=== PATIENT | male | born 1955 | race Caucasian/White ===

== ENCOUNTER 2023-07-23 18:32 | Emergency (ER) | payer MEDICARE, OTHER, SELFPAY ==
[2023-07-23 18:40] VITALS: BP 198/100; PULSE 73; RESP 18; TEMP 36.5; O2SAT 97; BMI 33.5
--- NOTE | 2023-07-23 18:48 | CT_ITS ---
[address] [address] Patient Name: JAE KHAN MRN: [id number] date: 1955 Sex: M Assigned Patient Location: ER Current Patient Location: [facility] Accession/Order Number: [id number] Exam Date: 07/23/2023 19:05 Report Date: 07/23/2023 20:03 At the request of: KESHA PIRES Procedure: CT abdomen pelvis wo con EXAMINATION: CT ABDOMEN AND PELVIS WITHOUT IV CONTRAST CLINICAL HISTORY: Flank pain TECHNIQUE: Non-IV contrast imaging of the abdomen and pelvis was performed using standard technique, scanning from just above the dome of the diaphragm to the symphysis pubis. Unenhanced imaging is limited for the evaluation of some intra-abdominal and pelvic pathology. All CT scans at this facility use dose modulation, iterative reconstruction, and/or weight based dosing when appropriate to reduce radiation dose to as low as reasonably achievable. Contrast: IV: None COMPARISON: None. RESULT: Abdomen / Pelvis: Liver: 3.5 cm right hepatic lobe simple cyst. The liver demonstrates homogeneous attenuation. Biliary: Cholelithiasis. Spleen: No splenomegaly. Pancreas: Unremarkable. Adrenals: Normal. Kidneys: No calculus, hydronephrosis or finding to suggest a cyst or mass in the unenhanced kidney. GI Tract: No bowel dilation. Normal appendix. There is diverticulosis. No changes of diverticulitis. Moderate colonic stool. Lymph Nodes: No lymphadenopathy. Mesentery/peritoneum: No ascites. Retroperitoneum: No mass. Vasculature: Atherosclerotic vascular disease without aneurysm. Pelvis: No mass or ascites. Mild prostatomegaly. Urinary bladder is unremarkable. Bones/Soft Tissues: No acute abnormality. Lower thorax: Unremarkable. CT/CT abdomen pelvis wo con IMPRESSION: No acute findings in the abdomen and pelvis. Moderate colonic stool. Electronically authenticated by: EDUIN NORMAN Date: 07/23/2023 20:03
--- NOTE | 2023-07-23 18:55 | ED_ITS ---
HPI - General Adult General Chief complaint: Back Pain/Injury Stated complaint: HEMATURIA Time Seen by Provider: 07/23/23 18:41 Mode of arrival: walk-in History of Present Illness HPI narrative: Patient is a 67-year-old male who presents to the emergency department with his with concern for hematuria that began today. Patient has had ongoing issues with low back pain radiating into the but oxygen down the back of the legs for several months. He is awaiting an MRI from his PCP office for this. states they were seen at an urgent care last week for intermittent urinary incontinence. He has had no fevers, chills, nausea, vomiting. He states he feels warm . He does not have any flank pain although he states he occasionally has abdominal pain. He has no history of kidney issues. He has not passed any clots in his urine. He is able to urinate without difficulty. No pain or burning with urination. Related Data Home Medications Medication Instructions Recorded Confirmed Vitamin B12 See Rx Instructions .Route .COMPLEX 07/23/23 07/23/23 bempedoic acid 180 mg tablet 180 mg PO QAM 07/23/23 07/23/23 (Nexletol) buspirone 30 mg tablet 15 mg PO BID 07/23/23 07/23/23 carvedilol 12.5 mg tablet 12.5 mg PO BID 07/23/23 07/23/23 duloxetine 30 mg capsule,delayed 60 mg PO QAM 07/23/23 07/23/23 release duloxetine 60 mg capsule,delayed 30 mg PO QPM 07/23/23 07/23/23 release empagliflozin 25 mg tablet 25 mg PO QAM 07/23/23 07/23/23 (Jardiance) insulin glargine U-300 conc 300 60 unit subcut QPM 07/23/23 07/23/23 unit/mL (3 mL) subcutaneous pen (Toujeo Max U-300 SoloStar) insulin lispro 200 unit/mL (3 mL) 1 sliding scale dose subcut TIDWM 07/23/23 07/23/23 subcutaneous pen (Humalog KwikPen U-200 Insulin) lorazepam 0.5 mg tablet 0.5 mg PO QPM 07/23/23 07/23/23 lorazepam 1 mg tablet 1 mg PO QAM 07/23/23 07/23/23 melatonin 3 mg tablet 6 mg PO QPM 07/23/23 07/23/23 sacubitril 24 mg-valsartan 26 mg 1 tab PO BID 07/23/23 07/23/23 tablet (Entresto) semaglutide 2 mg/dose (8 mg/3 mL) 2 mg subcut QWEEK 07/23/23 07/23/23 subcutaneous pen injector (Ozempic) Allergies Allergy/AdvReac Type Severity Reaction Status Date / Time No Known Drug Allergies Allergy Verified 07/23/23 18:47 Review of Systems ROS Constitutional Denies: fever or chills Ears, nose, mouth, and throat Denies: throat pain Cardiovascular Denies: chest pain Respiratory Denies: shortness of breath Gastrointestinal Reports: abdominal pain; Denies: nausea, vomiting or diarrhea Genitourinary Reports: blood in urine; Denies: painful urination Musculoskeletal Reports: back pain and extremity pain; Denies: neck pain Integumentary/Breast Denies: rash Neurological Denies: headache Exam Narrative Exam Narrative: Gen.: Awake, alert, in no distress Head: Normocephalic, atraumatic ENT: Moist mucous membranes Respiratory: No respiratory distress, lungs clear bilaterally Cardio: Regular rate and rhythm Gastrointestinal: Abdomen is soft, nondistended and nontender to palpation Back: No CVA tenderness, no spinal point tenderness or obvious deformity Extremities: Moves extremities equally, normal dorsiflexion and plantarflexion with no decrease in sensation to the medial thighs, ambulatory. Psych: Normal mood and affect Neuro: No focal neuro deficit Skin: Warm, dry, intact Constitutional Vital Signs, click to edit/add: Last Vital Signs Temp 97.7 F 07/23/23 18:40 Pulse 73 07/23/23 18:40 Resp 18 07/23/23 18:40 BP 198/100 H 07/23/23 18:40 Pulse Ox 97 07/23/23 18:40 O2 Del Method Room Air 07/23/23 19:45 Course Vital Signs Vital signs: Vital Signs Temperature 97.7 F 07/23/23 18:40 Pulse Rate 73 07/23/23 18:40 Respiratory Rate 18 07/23/23 18:40 Blood Pressure 198/100 H 07/23/23 18:40 Pulse Oximetry 97 07/23/23 18:40 Oxygen Delivery Method Room Air 07/23/23 18:40 Temperature 97.7 F 07/23/23 18:40 Pulse Rate 73 07/23/23 18:40 Respiratory Rate 18 07/23/23 18:40 Blood Pressure 198/100 H 07/23/23 18:40 Pulse Oximetry 97 07/23/23 18:40 Oxygen Delivery Method Room Air 07/23/23 19:45 Medical Decision Making MDM Narrative Medical decision making narrative: Patient was ordered to have an IV placed with pain medication and muscle relaxants for his ongoing and worsening low back pain consistent with musculoskeletal pain/sciatica. He refused the IV, he refused the pain medications that were ordered. He then requested Tylenol. Lab studies and urine specimen showed no evidence of acute renal issue, no hematuria noted on urine screen and no evidence of urinary tract infection. CT of the abdomen and pelvis shows no evidence of kidney stone or renal pathology. Patient is noted to have moderate stool on the CT. He will be discharged home to follow-up with urology, PCP, return to the Emergency Room if symptoms change or worsen. Patient reevaluated by attending physician prior to discharge, all questions answered. Medical Records Medical records reviewed: Yes I reviewed the patient's medical records Lab Data Lab results reviewed: Yes I reviewed the patient's lab results Labs: Lab Results 07/23/23 07/23/23 Range/Units 18:47 19:50 WBC 8.4 (4.0-11.0) 10^3/uL RBC 4.67 L (4.70-6.10) 10^6/uL Hgb 13.9 L (14.0-18.0) g/dL Hct 42.9 (42.0-54.0) % MCV 91.9 (80.0-94.0) fL MCH 29.8 (25.9-34.0) pg MCHC 32.4 (29.9-35.2) g/dL RDW 15.2 H (11.0-15.0) % Plt Count 268 (150-450) 10^3/uL MPV 9.4 L (9.5-13.5) fL Neut % (Auto) 56.9 (43.0-75.0) % Lymph % (Auto) 30.4 (20.5-60.0) % [place] % (Auto) 9.2 (1.7-12.0) % Eos % (Auto) 2.6 (0.9-7.0) % Baso % (Auto) 0.5 (0.2-2.0) % Neut # (Auto) 4.8 (1.4-6.5) 10^3/uL Lymph # (Auto) 2.6 (1.2-3.8) 10^3/uL [place]ois # (Auto) 0.8 (0.3-0.8) 10^3/uL Eos # (Auto) 0.2 (0.0-0.7) 10^3/uL Baso # (Auto) 0.0 (0.0-0.1) 10^3/uL Abs Immat Gran (auto) 0.03 (0.00-0.03) 10^3/uL Imm/Tot Granulo (auto) 0.4 (0.0-0.5) % Sodium 138 (136-145) mmol/L Potassium 4.1 (3.5-5.1) mmol/L Chloride 102 (98-107) mmol/L Carbon Dioxide 25.1 (21.0-32.0) mmol/L Anion Gap 15.0 BUN 29.0 H (7.0-18.0) mg/dL Creatinine 0.98 (0.70-1.30) mg/dL Est GFR ( Amer) >60 (>=60) Est GFR (Non-Af Amer) >60 (>=60) BUN/Creatinine Ratio 29.6 Glucose 142 H (74-106) mg/dL Calcium 8.9 (8.5-10.1) mg/dL Total Bilirubin 0.3 (0.2-1.0) mg/dL AST 10 L (15-37) U/L ALT 41 (16-63) U/L Alkaline Phosphatase 45 L (46-116) U/L Total Protein 7.6 (6.4-8.2) g/dL Albumin 3.9 (3.4-5.0) g/dL Globulin 3.7 g/dL Albumin/Globulin Ratio 1.1 Urine Color Lt. yellow (YELLOW) Urine Clarity Clear (CLEAR) Urine pH 6.0 (5.0-9.0) Ur Specific [place] 1.020 (1.005-1.025) Urine Protein Negative (NEG/TRACE) mg/dL Urine Glucose (UA) >=1000 A (NEGATIVE) mg/dL Urine Ketones Negative (NEGATIVE) mg/dL Urine Occult Blood Negative (NEGATIVE) Urine Nitrite Negative (NEGATIVE) Urine Bilirubin Negative (NEGATIVE) Urine Urobilinogen 0.2 (0.2-1.0) EU/dL Ur Leukocyte Esterase Negative (NEGATIVE) Imaging Data CT scan - abdomen: Attestation: I have reviewed the pertinent imaging results. Radiologist's impression: Procedure: CT abdomen pelvis wo con EXAMINATION: CT ABDOMEN AND PELVIS WITHOUT IV CONTRAST CLINICAL HISTORY: Flank pain TECHNIQUE: Non-IV contrast imaging of the abdomen and pelvis was performed using standard technique, scanning from just above the dome of the diaphragm to the symphysis pubis. Unenhanced imaging is limited for the evaluation of some intra-abdominal and pelvic pathology. All CT scans at this facility use dose modulation, iterative reconstruction, and/or weight based dosing when appropriate to reduce radiation dose to as low as reasonably achievable. Contrast: IV: None COMPARISON: None. RESULT: Abdomen / Pelvis: Liver: 3.5 cm right hepatic lobe simple cyst. The liver demonstrates homogeneous attenuation. Biliary: Cholelithiasis. Spleen: No splenomegaly. Pancreas: Unremarkable. Adrenals: Normal. Kidneys: No calculus, hydronephrosis or finding to suggest a cyst or mass in the unenhanced kidney. GI Tract: No bowel dilation. Normal appendix. There is diverticulosis. No changes of diverticulitis. Moderate colonic stool. Lymph Nodes: No lymphadenopathy. Mesentery/peritoneum: No ascites. Retroperitoneum: No mass. Vasculature: Atherosclerotic vascular disease without aneurysm. Pelvis: No mass or ascites. Mild prostatomegaly. Urinary bladder is unremarkable. Bones/Soft Tissues: No acute abnormality. Lower thorax: Unremarkable. IMPRESSION: No acute findings in the abdomen and pelvis. Moderate colonic stool. Electronically authenticated by: EDUIN NORMAN Date: 07/23/2023 20:03 Discharge Plan Discharge Chief Complaint: Back Pain/Injury Clinical Impression: Hematuria, Musculoskeletal back pain Time of Disposition Decision: 20:31 Condition: Good Prescriptions / Home Meds: No Action duloxetine 30 mg capsule,delayed release(DR/EC) 60 mg PO QAM duloxetine 60 mg capsule,delayed release(DR/EC) 30 mg PO QPM buspirone 30 mg tablet 15 mg PO BID lorazepam 1 mg tablet 1 mg PO QAM lorazepam 0.5 mg tablet 0.5 mg PO QPM Toujeo Max U-300 SoloStar 300 unit/mL (3 mL) insulin pen 60 unit SUBCUT QPM Humalog KwikPen Insulin 200 unit/mL (3 mL) insulin pen 1 sliding scale dose SUBCUT TIDWM Ozempic 2 mg/dose (8 mg/3 mL) pen injector 2 mg subcut QWEEK Jardiance 25 mg tablet 25 mg PO QAM carvedilol 12.5 mg tablet 12.5 mg PO BID Nexletol 180 mg tablet 180 mg PO QAM Entresto 24-26 mg tablet 1 tab PO BID melatonin 3 mg tablet 6 mg PO QPM Vitamin B12 100 mcg See Rx Instructions .ROUTE .COMPLEX Rx Instructions: 100 mcg in am; Instructions: Hematuria (ED), Back Pain (ED) Stand Alone Forms: Portal Instructions Referrals: Adalberto Alcantara MD [Physician] - 1 week JAE PANIAGUA [Primary Care Provider] - 1 week
[2023-07-23 19:41] LABS: Bilirubin Urine NEGATIVE (NEGATIVE); Blood Urine NEGATIVE (NEGATIVE); Clarity Urine CLEAR (CLEAR); Color Urine LT. YELLOW (YELLOW); Glucose Urine UA >=1000 mg/dL (NEGATIVE); Ketones Urine NEGATIVE (NEGATIVE); Leukocyte Esterase Urine NEGATIVE (NEGATIVE); Nitrite Urine NEGATIVE (NEGATIVE); Protein Urine NEGATIVE (NEG/TRACE); Urobilinogen Urine 0.2 EU/dL (0.2-1.0)
[2023-07-23 19:48] LABS: Urine Microscopic Indicated NO
[2023-07-23 20:00] LABS: Basophils Percent Auto 0.5 % (0.2-2.0); Eosinophils Absolute Auto 0.2 10^3/uL (0.0-0.7); Eosinophils Percent Auto 2.6 % (0.9-7.0); Hematocrit 42.9 % (42.0-54.0); Hemoglobin 13.9 g/dL (14.0-18.0); Immature Granulocytes Abs Auto 0.03 10^3/uL (0.00-0.03); Immature Granulocytes Pct Auto 0.4 % (0.0-0.5); Lymphocytes Absolute Auto 2.6 10^3/uL (1.2-3.8); Lymphocytes Percent Auto 30.4 % (20.5-60.0); Mean Corpuscular HGB Conc 32.4 g/dL (29.9-35.2); Mean Corpuscular Hemoglobin 29.8 pg (25.9-34.0); Mean Corpuscular Volume 91.9 fL (80.0-94.0); Mean Platelet Volume 9.4 fL (9.5-13.5); Monocytes Absolute Auto 0.8 10^3/uL (0.3-0.8); Monocytes Percent Auto 9.2 % (1.7-12.0); Neutrophils Absolute Auto 4.8 10^3/uL (1.4-6.5); Neutrophils Percent Auto 56.9 % (43.0-75.0); Platelet Count 268 10^3/uL (150-450); Red Blood Count 4.67 10^6/uL (4.70-6.10); Red Cell Distribution Width 15.2 % (11.0-15.0); White Blood Count 8.4 10^3/uL (4.0-11.0)
[2023-07-23 20:24] LABS: Alanine Aminotransferase 41 U/L (16-63); Albumin Globulin Ratio 1.1; Albumin Level 3.9 g/dL (3.4-5.0); Alkaline Phosphatase 45 U/L (46-116); Aspartate Amino Transferase 10 U/L (15-37); BUN Creatinine Ratio 29.6; Bilirubin Total 0.3 mg/dL (0.2-1.0); Calcium 8.9 mg/dL (8.5-10.1); Carbon Dioxide 25.1 mmol/L (21.0-32.0); Chloride 102 mmol/L (98-107); Estimated GFR (African America >60 (>=60); Estimated GFR (Non-African Ame >60 (>=60); Globulin 3.7 g/dL; Glucose 142 mg/dL (74-106); Potassium 4.1 mmol/L (3.5-5.1); Sodium 138 mmol/L (136-145); Total Protein 7.6 g/dL (6.4-8.2)
[2023-07-23] MEDS: ACETAMINOPHEN 325 MG TABLET 975 MG PO (20:25)
== END 2023-07-23 20:53 | disposition home or self-care (01) ==
PROVIDERS: Physician Assistant; Emergency Provider Emergency Medicine; PCP Internal Medicine
DX: R31.9 Hematuria, unspecified (principal); M54.9 Dorsalgia, unspecified; Z79.899 Other long term (current) drug therapy; Z79.4 Long term (current) use of insulin
CPT/HCPCS: 36415; 74176; 80053; 81003; 85025; 99285

== ENCOUNTER 2024-06-25 17:54 | Emergency (ER) | payer MEDICARE, SELFPAY ==
[2024-06-25 18:00] VITALS: BP 176/97; PULSE 82; TEMP 36.9; O2SAT 97; BMI 32.8
[2024-06-25 18:13] VITALS: O2SAT 97
--- NOTE | 2024-06-25 18:14 | ECG_ITS ---
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
[2024-06-25 18:26] LABS: Basophils Absolute Auto 0.1 10^3/uL (0.0-0.1); Basophils Percent Auto 0.5 % (0.2-2.0); Eosinophils Absolute Auto 0.2 10^3/uL (0.0-0.7); Eosinophils Percent Auto 1.8 % (0.9-7.0); Hematocrit 43.5 % (42.0-54.0); Hemoglobin 14.8 g/dL (14.0-18.0); Immature Granulocytes Abs Auto 0.02 10^3/uL (0.00-0.03); Immature Granulocytes Pct Auto 0.2 % (0.0-0.5); Lymphocytes Percent Auto 19.7 % (20.5-60.0); Mean Corpuscular Hemoglobin 31.2 pg (25.9-34.0); Mean Corpuscular Volume 91.6 fL (80.0-94.0); Mean Platelet Volume 8.8 fL (9.5-13.5); Monocytes Absolute Auto 0.8 10^3/uL (0.3-0.8); Monocytes Percent Auto 7.4 % (1.7-12.0); Neutrophils Absolute Auto 7.3 10^3/uL (1.4-6.5); Neutrophils Percent Auto 70.4 % (43.0-75.0); Platelet Count 274 10^3/uL (150-450); Red Blood Count 4.75 10^6/uL (4.70-6.10); White Blood Count 10.3 10^3/uL (4.0-11.0)
--- NOTE | 2024-06-25 18:32 | ED_ITS ---
HPI - Abdominal Pain General Chief Complaint: Extremity Problem, Nontraumatic Stated Complaint: Confusion, Lower Extremity Pain Time Seen by Provider: 06/25/24 18:01 Source: patient and family Mode of arrival: walk-in Limitations: no limitations History of Present Illness HPI narrative: Patient presents to ED with multiple medical problems and an extensive history. Patient has an extensive psychiatric history especially dealing with depression and anxiety. He has been on Ativan for many years and they are beginning the weaning process of Ativan. He has been on 1 mg in the night and 1 mg in the morning and he now is cutting down to half a milligram in the night and half milligram in the morning. Today is the first day that they cut his dose. They also added in BuSpar 5 mg a.m. and 5 mg p.m. He has been on BuSpar in the past but this is a new medication form again at this time. He also complained of abdominal pain and has a history of gallbladder issues but they apparently told him he can get his gallbladder out because he is on Plavix and needs to remain on Plavix for a year because he has had 4 cardiac stents. Patient also complained of bilateral lower extremity swelling and numbness. He has a extensive history of back issues and had an MRI 2 weeks ago that was nonacute. The MRI was set up by his family doctor and did not show any acute abnormalities. Most the information was obtained from the who was providing the medical history and current problems to me. Patient states he is not suicidal not homicidal. The patient also states he does not currently have abdominal pain or leg weakness or numbness. The states the symptoms have been on and off but his anxiety definitely seems worse today. Related Data Home Medications ?Medication ?Instructions ?Recorded ?Confirmed Vitamin B12 See Rx Instructions .Route .COMPLEX 07/23/23 06/25/24 buspirone 30 mg tablet 5 mg PO BID 07/23/23 06/25/24 carvedilol 12.5 mg tablet 12.5 mg PO BID 07/23/23 06/25/24 duloxetine 30 mg capsule,delayed 90 mg PO QAM 07/23/23 06/25/24 release insulin glargine U-300 conc 300 60 unit subcut QPM 07/23/23 06/25/24 unit/mL (3 mL) subcutaneous pen (Toujeo Max U-300 SoloStar) insulin lispro 200 unit/mL (3 mL) 1 sliding scale dose subcut TIDWM 07/23/23 06/25/24 subcutaneous pen (Humalog KwikPen U-200 Insulin) lorazepam 0.5 mg tablet 0.5 mg PO QPM 07/23/23 06/25/24 lorazepam 1 mg tablet 1 mg PO QAM 07/23/23 06/25/24 melatonin 3 mg tablet 6 mg PO QPM 07/23/23 06/25/24 semaglutide 2 mg/dose (8 mg/3 mL) 2 mg subcut QWEEK 07/23/23 06/25/24 subcutaneous pen injector (Ozempic) atorvastatin 80 mg tablet 80 mg PO DAILY 06/25/24 06/25/24 clopidogrel 75 mg tablet 75 mg PO DAILY 06/25/24 06/25/24 empagliflozin 25 mg tablet 25 mg PO DAILY 06/25/24 06/25/24 (Jardiance) losartan 25 mg tablet 25 mg PO DAILY 06/25/24 06/25/24 spironolactone 25 mg tablet 25 mg PO DAILY 06/25/24 06/25/24 trazodone 100 mg tablet 50 mg PO BEDTIME PRN sleep 06/25/24 06/25/24 Allergies Allergy/AdvReac Type Severity Reaction Status Date / Time No Known Drug Allergies Allergy Verified 07/23/23 18:47 Review of Systems ROS Status of ROS 10 or more systems reviewed and unremark able except as noted in history and below PFSH PFSH Social History Little interest or pleasure in doing things: not at all Feeling down, depressed, or hopeless: not at all Exam Narrative Exam Narrative: Time Seen: [] Vital Signs: [Per nurse's notes.] General: [Alert] Skin: [Warm, dry, no rash.] Head: [Normocephalic, atraumatic.] Neck: [Supple, trachea midline.] Eye: [Pupils are equal, round and reactive to light, extraocular movements are intact, normal conjunctiva.] Ears, nose, mouth and throat: oral mucosa moist. Cardiovascular: [Regular rate and rhythm, no murmur.] Respiratory: [Lungs are clear to auscultation, respirations are non-labored, breath sounds are equal.] Chest wall: [No tenderness, no deformity.] Gastrointestinal: [Soft, nontender, non distended, normal bowel sounds.] MSK: 5 out of 5 muscle strength x 4 extremities no calf pain. No paraspinal pain in the lumbar spine. Normal distal pulses and sensation. Normal distal strength. Mild bilateral trace edema in the lower extremities Lymphatics: [No lymphadenopathy.] Psychiatric: [Cooperative, anxious, slightly agitated Neurological: [Alert and oriented to person, place, time, and situation, no focal neurological deficit observed.] Constitutional Vital Signs, click to edit/add: Last Vital Signs Temp 98.4 F 06/25/24 18:00 Pulse 82 06/25/24 18:00 Resp 18 06/25/24 18:00 BP 176/97 H 06/25/24 18:00 Pulse Ox 97 06/25/24 18:13 O2 Del Method Room Air 06/25/24 18:13 Course Vital Signs Vital signs: Vital Signs Temperature 98.4 F 06/25/24 18:00 Pulse Rate 82 06/25/24 18:00 Respiratory Rate 18 06/25/24 18:00 Blood Pressure 176/97 H 06/25/24 18:00 Pulse Oximetry 97 06/25/24 18:00 Oxygen Delivery Method Room Air 06/25/24 18:00 Temperature 98.4 F 06/25/24 18:00 Pulse Rate 82 06/25/24 18:00 Respiratory Rate 18 06/25/24 18:00 Blood Pressure 176/97 H 06/25/24 18:00 Pulse Oximetry 97 06/25/24 18:13 Oxygen Delivery Method Room Air 06/25/24 18:13 MDM - Abdominal Pain Differential Diagnosis Differential diagnosis: Likely abdominal pain, constipation, gastroenteritis, small bowel obstruction and other (Cholelithiasis cholecystitis, anxiety, medication withdraw) Medical Records Attestation: I reviewed the patient's medical records. Lab Data Attestation: I reviewed the patient's lab results. Labs: Lab Results 06/25/24 Range/Units 18:00 WBC 10.3 (4.0-11.0) 10^3/uL RBC 4.75 (4.70-6.10) 10^6/uL Hgb 14.8 (14.0-18.0) g/dL Hct 43.5 (42.0-54.0) % MCV 91.6 (80.0-94.0) fL MCH 31.2 (25.9-34.0) pg MCHC 34.0 (29.9-35.2) g/dL RDW 15.0 (11.0-15.0) % Plt Count 274 (150-450) 10^3/uL MPV 8.8 L (9.5-13.5) fL Neut % (Auto) 70.4 (43.0-75.0) % Lymph % (Auto) 19.7 L (20.5-60.0) % [place] % (Auto) 7.4 (1.7-12.0) % Eos % (Auto) 1.8 (0.9-7.0) % Baso % (Auto) 0.5 (0.2-2.0) % Neut # (Auto) 7.3 H (1.4-6.5) 10^3/uL Lymph # (Auto) 2.0 (1.2-3.8) 10^3/uL [place] # (Auto) 0.8 (0.3-0.8) 10^3/uL Eos # (Auto) 0.2 (0.0-0.7) 10^3/uL Baso # (Auto) 0.1 (0.0-0.1) 10^3/uL Abs Immat Gran (auto) 0.02 (0.00-0.03) 10^3/uL Imm/Tot Granulo (auto) 0.2 (0.0-0.5) % ECG Data Attestation: I personally reviewed and interpreted this ECG as follows: Interpretation: EKG INTERPRETATION Time: [] 1821 Rate: [] 74 Rhythm: _ [] Normal sinus rhythm ST segments: _ [] No acute ST elevation or depression T waves: _ [] Ectopy: _ [] P wave/[place] interval: _ [] QRS interval: _ [] QT interval: _ [] Comparison: _ [] Comparison EKG date: [] Performed by: [self] right bundle branch block Discharge Plan Discharge Chief Complaint: Extremity Problem, Nontraumatic Prescriptions / Home Meds: No Action duloxetine 30 mg capsule,delayed release(DR/EC) 90 mg PO QAM buspirone 30 mg tablet 5 mg PO BID lorazepam 1 mg tablet 1 mg PO QAM lorazepam 0.5 mg tablet 0.5 mg PO QPM insulin glargine U-300 conc [Toujeo Max U-300 SoloStar] 300 unit/mL (3 mL) insulin pen 60 unit SUBCUT QPM Humalog KwikPen Insulin 200 unit/mL (3 mL) insulin pen 1 sliding scale dose SUBCUT TIDWM Ozempic 2 mg/dose (8 mg/3 mL) pen injector 2 mg subcut QWEEK carvedilol 12.5 mg tablet 12.5 mg PO BID melatonin 3 mg tablet 6 mg PO QPM Vitamin B12 100 mcg See Rx Instructions .ROUTE .COMPLEX Rx Instructions: 100 mcg in am; atorvastatin 80 mg tablet 80 mg PO DAILY clopidogrel 75 mg tablet 75 mg PO DAILY losartan 25 mg tablet 25 mg PO DAILY spironolactone 25 mg tablet 25 mg PO DAILY trazodone 100 mg tablet 50 mg PO BEDTIME PRN (Reason: sleep) Jardiance 25 mg tablet 25 mg PO DAILY Print Language: Indonesian Referrals: Leeann Marshall NP [Primary Care Provider] - 1 week
--- NOTE | 2024-06-25 18:35 | CT_ITS ---
The [address] [address] Patient Name: JAE KHAN MRN: [id number] date: 1955 Sex: M Assigned Patient Location: ER Current Patient Location: .[facility] Accession/Order Number: [id number] Exam Date: 06/25/2024 18:32 Report Date: 06/25/2024 19:54 At the request of: STACY HDZ Procedure: CT abdomen pelvis wo con CT ABDOMEN PELVIS WITHOUT CONTRAST HISTORY: Abdominal pain. COMPARISON: CT abdomen and pelvis without 07/23/2023. TECHNIQUE: Thin section axial CT images were obtained from the lung bases to the pubis symphysis. This CT exam was performed using one or more of the following dose reduction techniques: Automated exposure control, adjustment of the mA and/or kV according to patient size, or use of iterative reconstruction technique. Thin section coronal and sagittal images were reconstructed from the axial data set. All images were reviewed and interpreted. CONTRAST: None. FINDINGS: Assessment of solid organs is limited without the benefit of IV contrast. LUNG BASES: The lung bases are clear. GE JUNCTION AND STOMACH: Small sliding-type hiatal hernia. LIVER: Stable simple left hepatic lobe cyst measures 3.3 x 2.7 cm with mean attenuation values 6 Hounsfield units consistent with simple cysts. Liver otherwise negative. GALLBLADDER AND BILIARY TREE: Redemonstration of multiple small gallstones within gallbladder lumen. No gallbladder distention or CT evidence of acute cholecystitis. No intrahepatic or extrahepatic bile duct distention. SPLEEN: Negative. PANCREAS: Negative. ADRENALS: Negative. KIDNEYS AND URETERS: Stable chronic bilateral perinephric scarring and stranding unchanged from prior. Otherwise unremarkable kidneys. No urinary tract calculi or hydronephrosis. No renal masses or cysts are evident. SMALL BOWEL: Negative without enteritis or obstruction or wall thickening. LARGE BOWEL: Normal course and caliber. Moderate stool retention. Otherwise negative. No obvious diverticulosis. APPENDIX: Calcified appendicolith near the proximal aspect with otherwise normal appendix. Air-filled appendix. No evidence of appendicitis. AORTA AND ILIAC ARTERIES: Normal caliber abdominal aorta. Scattered atherosclerotic calcific plaque throughout the wall of the aorta. Scattered calcific plaque along the wall takeoff of right renal artery. 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 Mild aneurysmal dilation right common artery measuring 1.7 cm. No internal or external iliac artery aneurysms. Atherosclerotic calcific wall plaque along course of common iliac, proximal internal and external iliac arteries. IVC: Negative. LYMPH NODES: There is no lymphadenopathy. BLADDER: Normal bladder. BONES: No lytic or blastic bone lesion or fracture. L4-5 posterior fixation and fusion with pedicle screws and vertical rods with decompression laminectomy changes at L4. No complicating features. No central canal or neural foraminal narrowing in the lower thoracic or lumbar spine. No fluid collection in the postoperative bed. COMMENTS: Stable small fat-containing uncomplicated umbilical hernia. No bowel herniation. No ascites or free air or loculated fluid. No inflammatory changes. Prostate remains enlarged measuring almost 5 cm AP and 5.[address]/CT abdomen pelvis wo con IMPRESSION: 1. No acute abdominal or pelvic findings. 2. No urinary tract calculi or hydronephrosis. 3. Stable simple left hepatic lobe cyst. 4. Stable enlarged prostate. 5. Cholelithiasis. 6. Moderate stool retention. Correlate for constipation. Electronically authenticated by: MARIANO TORREZ Date: 06/25/2024 19:54
[2024-06-25 18:39] LABS: INR 1.03; Prothrombin Time 10.9 sec (9.0-11.6)
[2024-06-25 18:40] VITALS: PULSE 84
[2024-06-25 18:42] LABS: Alanine Aminotransferase 28 U/L (16-63); Albumin Globulin Ratio 0.9; Albumin Level 3.7 g/dL (3.4-5.0); Alkaline Phosphatase 60 U/L (46-116); Anion Gap 18.1; Aspartate Amino Transferase 14 U/L (15-37); BUN Creatinine Ratio 25.5; Bilirubin Total 0.5 mg/dL (0.2-1.0); Chloride 104 mmol/L (98-107); Estimated GFR (African America >60 (>=60 mL/min/1.73m^2); Estimated GFR (Non-African Ame >60 (>=60 mL/min/1.73m^2); Glucose 137 mg/dL (74-106); Potassium 4.1 mmol/L (3.5-5.1); Sodium 140 mmol/L (136-145); Total Protein 7.7 g/dL (6.4-8.2); Troponin I High Sensitivity 12.9 pg/mL (4.0-76.1)
[2024-06-25 18:56] VITALS: PULSE 87; O2SAT 99
[2024-06-25 19:16] LABS: Bilirubin Urine NEGATIVE (NEGATIVE); Blood Urine NEGATIVE (NEGATIVE); Clarity Urine CLEAR (CLEAR); Color Urine LT. YELLOW (YELLOW); Glucose Urine UA >=1000 mg/dL (NEGATIVE); Ketones Urine NEGATIVE (NEGATIVE); Leukocyte Esterase Urine NEGATIVE (NEGATIVE); Nitrite Urine NEGATIVE (NEGATIVE); Protein Urine NEGATIVE (NEG/TRACE); Specific Gravity Urine <=1.005 (1.005-1.025); Urobilinogen Urine 0.2 EU/dL (0.2-1.0)
[2024-06-25 19:17] LABS: Urine Microscopic Indicated NO
[2024-06-25] MEDS: HYDROXYZINE HCL 25 MG TABLET 50 MG PO (19:49)
--- NOTE | 2024-06-25 19:55 | PC.NURSE ---
Patient pacing in room. Updated on waiting for ct results. Patient given hydroxyzine. Physician at bedside
--- NOTE | 2024-06-25 20:02 | ED_ITS ---
HPI - Anxiety General Chief Complaint: Extremity Problem, Nontraumatic Stated Complaint: Confusion, Lower Extremity Pain Time Seen by Provider: 06/25/24 18:01 Source: patient and family Mode of arrival: walk-in Limitations: no limitations History of Present Illness HPI narrative: 68-year-old male presents to the emergency department and was initially seen by Dr. Velasquez and signed out to me after discussing the case with her thoroughly. Please see her full history and physical exam. Related Data Home Medications ?Medication ?Instructions ?Recorded ?Confirmed Vitamin B12 See Rx Instructions .Route .COMPLEX 07/23/23 06/25/24 buspirone 30 mg tablet 5 mg PO BID 07/23/23 06/25/24 carvedilol 12.5 mg tablet 12.5 mg PO BID 07/23/23 06/25/24 duloxetine 30 mg capsule,delayed 90 mg PO QAM 07/23/23 06/25/24 release insulin glargine U-300 conc 300 60 unit subcut QPM 07/23/23 06/25/24 unit/mL (3 mL) subcutaneous pen (Toujeo Max U-300 SoloStar) insulin lispro 200 unit/mL (3 mL) 1 sliding scale dose subcut TIDWM 07/23/23 06/25/24 subcutaneous pen (Humalog KwikPen U-200 Insulin) lorazepam 0.5 mg tablet 0.5 mg PO QPM 07/23/23 06/25/24 lorazepam 1 mg tablet 1 mg PO QAM 07/23/23 06/25/24 melatonin 3 mg tablet 6 mg PO QPM 07/23/23 06/25/24 semaglutide 2 mg/dose (8 mg/3 mL) 2 mg subcut QWEEK 07/23/23 06/25/24 subcutaneous pen injector (Ozempic) atorvastatin 80 mg tablet 80 mg PO DAILY 06/25/24 06/25/24 clopidogrel 75 mg tablet 75 mg PO DAILY 06/25/24 06/25/24 empagliflozin 25 mg tablet 25 mg PO DAILY 06/25/24 06/25/24 (Jardiance) losartan 25 mg tablet 25 mg PO DAILY 06/25/24 06/25/24 spironolactone 25 mg tablet 25 mg PO DAILY 06/25/24 06/25/24 trazodone 100 mg tablet 50 mg PO BEDTIME PRN sleep 06/25/24 06/25/24 Allergies Allergy/AdvReac Type Severity Reaction Status Date / Time No Known Drug Allergies Allergy Verified 07/23/23 18:47 PFSH PFSH Social History Little interest or pleasure in doing things: not at all Feeling down, depressed, or hopeless: not at all Exam Constitutional Vital Signs, click to edit/add: Last Vital Signs Temp 98.4 F 06/25/24 18:00 Pulse 87 06/25/24 18:56 Resp 18 06/25/24 18:56 BP 176/97 H 06/25/24 18:00 Pulse Ox 99 06/25/24 18:56 O2 Del Method Room Air 06/25/24 18:13 Course Vital Signs Vital signs: Vital Signs Temperature 98.4 F 06/25/24 18:00 Pulse Rate 82 06/25/24 18:00 Respiratory Rate 18 06/25/24 18:00 Blood Pressure 176/97 H 06/25/24 18:00 Pulse Oximetry 97 06/25/24 18:00 Oxygen Delivery Method Room Air 06/25/24 18:00 Temperature 98.4 F 06/25/24 18:00 Pulse Rate 87 06/25/24 18:56 Respiratory Rate 18 06/25/24 18:56 Blood Pressure 176/97 H 06/25/24 18:00 Pulse Oximetry 99 06/25/24 18:56 Oxygen Delivery Method Room Air 06/25/24 18:13 MDM - Anxiety MDM Narrative Medical decision making narrative: Blood work is negative and CAT scan shows constipation but no other acute findings. The patient has are reassured and he is discharged home. His symptoms appear to be due to the tapering of the Ativan which he will continue to do. Treatment diagnosis and follow-up were discussed thoroughly. Differential Diagnosis Differential diagnosis: Likely acute anxiety Lab Data Attestation: I reviewed the patient's lab results. Labs: Lab Results 06/25/24 06/25/24 06/25/24 Range/Units 18:00 18:10 19:06 WBC 10.3 (4.0-11.0) 10^3/uL RBC 4.75 (4.70-6.10) 10^6/uL Hgb 14.8 (14.0-18.0) g/dL Hct 43.5 (42.0-54.0) % MCV 91.6 (80.0-94.0) fL MCH 31.2 (25.9-34.0) pg MCHC 34.0 (29.9-35.2) g/dL RDW 15.0 (11.0-15.0) % Plt Count 274 (150-450) 10^3/uL MPV 8.8 L (9.5-13.5) fL Neut % (Auto) 70.4 (43.0-75.0) % Lymph % (Auto) 19.7 L (20.5-60.0) % [place] % (Auto) 7.4 (1.7-12.0) % Eos % (Auto) 1.8 (0.9-7.0) % Baso % (Auto) 0.5 (0.2-2.0) % Neut # (Auto) 7.3 H (1.4-6.5) 10^3/uL Lymph # (Auto) 2.0 (1.2-3.8) 10^3/uL [place] # (Auto) 0.8 (0.3-0.8) 10^3/uL Eos # (Auto) 0.2 (0.0-0.7) 10^3/uL Baso # (Auto) 0.1 (0.0-0.1) 10^3/uL Abs Immat Gran (auto) 0.02 (0.00-0.03) 10^3/uL Imm/Tot Granulo (auto) 0.2 (0.0-0.5) % PT 10.9 (9.0-11.6) sec INR 1.03 Sodium 140 (136-145) mmol/L Potassium 4.1 (3.5-5.1) mmol/L Chloride 104 (98-107) mmol/L Carbon Dioxide 22.0 (21.0-32.0) mmol/L Anion Gap 18.1 BUN 25.0 H (7.0-18.0) mg/dL Creatinine 0.98 (0.70-1.30) mg/dL Est GFR ( Amer) >60 (>=60 mL/min/1.73m^2) Est GFR (Non-Af Amer) >60 (>=60 mL/min/1.73m^2) BUN/Creatinine Ratio 25.5 Glucose 137 H (74-106) mg/dL Calcium 9.0 (8.5-10.1) mg/dL Total Bilirubin 0.5 (0.2-1.0) mg/dL AST 14 L (15-37) U/L ALT 28 (16-63) U/L Alkaline Phosphatase 60 (46-116) U/L Troponin I High Sens 12.9 (4.0-76.1) pg/mL Total Protein 7.7 (6.4-8.2) g/dL Albumin 3.7 (3.4-5.0) g/dL Globulin 4.0 g/dL Albumin/Globulin Ratio 0.9 Lipase 43.0 (16.0-77.0) U/L Urine Color Lt. yellow (YELLOW) Urine Clarity Clear (CLEAR) Urine pH 7.0 (5.0-9.0) Ur Specific [place] <=1.005 A (1.005-1.025) Urine Protein Negative (NEG/TRACE) mg/dL Urine Glucose (UA) >=1000 A (NEGATIVE) mg/dL Urine Ketones Negative (NEGATIVE) mg/dL Urine Occult Blood Negative (NEGATIVE) Urine Nitrite Negative (NEGATIVE) Urine Bilirubin Negative (NEGATIVE) Urine Urobilinogen 0.2 (0.2-1.0) EU/dL Ur Leukocyte Esterase Negative (NEGATIVE) Imaging Data CT scan - abdomen: Radiologist's impression: ITS Impressions Abdomen/Pelvis CT 06/25/24 18:35 IMPRESSION: 1. No acute abdominal or pelvic findings. 2. No urinary tract calculi or hydronephrosis. 3. Stable simple left hepatic lobe cyst. 4. Stable enlarged prostate. 5. Cholelithiasis. 6. Moderate stool retention. Correlate for constipation. Electronically authenticated by: MARIANO TORREZ Date: 06/25/2024 19:54 Discharge Plan Discharge Chief Complaint: Extremity Problem, Nontraumatic Clinical Impression: Anxiety, Constipation Patient Disposition: Home, Self-Care Time of Disposition Decision: 20:01 Condition: Good Mode of Transportation: Private Vehicle Prescriptions / Home Meds: No Action duloxetine 30 mg capsule,delayed release(DR/EC) 90 mg PO QAM buspirone 30 mg tablet 5 mg PO BID lorazepam 1 mg tablet 1 mg PO QAM lorazepam 0.5 mg tablet 0.5 mg PO QPM insulin glargine U-300 conc [Toujeo Max U-300 SoloStar] 300 unit/mL (3 mL) insulin pen 60 unit SUBCUT QPM Humalog KwikPen Insulin 200 unit/mL (3 mL) insulin pen 1 sliding scale dose SUBCUT TIDWM Ozempic 2 mg/dose (8 mg/3 mL) pen injector 2 mg subcut QWEEK carvedilol 12.5 mg tablet 12.5 mg PO BID melatonin 3 mg tablet 6 mg PO QPM Vitamin B12 100 mcg See Rx Instructions .ROUTE .COMPLEX Rx Instructions: 100 mcg in am; atorvastatin 80 mg tablet 80 mg PO DAILY clopidogrel 75 mg tablet 75 mg PO DAILY losartan 25 mg tablet 25 mg PO DAILY spironolactone 25 mg tablet 25 mg PO DAILY trazodone 100 mg tablet 50 mg PO BEDTIME PRN (Reason: sleep) Jardiance 25 mg tablet 25 mg PO DAILY Print Language: Yi Instructions: Constipation (ED), Anxiety (ED) Referrals: Leeann Marshall [employer] [employer] [facility] [Primary Care Provider] - 1 week
[2024-06-25 20:16] VITALS: BP 178/97; PULSE 78; O2SAT 98
== END 2024-06-25 20:18 | disposition home or self-care (01) ==
PROVIDERS: Emergency Medicine; Emergency Provider Emergency Medicine; PCP Nurse Practitioner
DX: F41.9 Anxiety disorder, unspecified (principal); K59.00 Constipation, unspecified; Z79.02 Long term (current) use of antithrombotics/antiplatelets; Z95.5 Presence of coronary angioplasty implant and graft; M79.89 Other specified soft tissue disorders
CPT/HCPCS: 36415; 74176; 80053; 81003; 83690; 84484; 85025; 85610; 93005; 99285

== ENCOUNTER 2024-07-17 19:51 | Emergency (ER) | payer MEDICARE, SELFPAY ==
[2024-07-17 19:56] VITALS: BP 208/106; PULSE 78; TEMP 36.7; O2SAT 98; BMI 32.2
--- OUTSIDE RECORDS SUMMARY | 2024-07-17 20:00 | XMS_ITS | CCD ---
Author Organization [facility] Care Team Providers Care Consulting Application Engineer Name Role Phone ARLENEZL, CHAN E Unavailable Unavailable FENZL, CHAN E Unavailable Unavailable NOT SPECIFIED, Unavailable Unavailable FENZL, CHAN Heck Unavailable Unavailable NOT SPECIFIED, Unavailable Unavailable FIELER KARRI Unavailable Unavailable NO, PHYSICIAN Unavailable Unavailable MELODIE MONROE Admitting Unavailable MELODIE MONROE Attending Unavailable Provider, No Primary Care Provider UnavailDO Dane Moreno Emergency Provider Unavailable SIVA, DR SANTOS Primary Care Unavailable LESLYE, DR CHAN Gray Attending Unavailable LESLYE, DR CHAN Gray Admitting Unavailable LESLYE, DR CHAN Gray Consulting Unavailable CELINE OLIVERA Consulting Unavailable MACO QUICK Consulting Unavailable YUHAS, DR SANTOS Admitting Unavailable YUHAS, DR SANTOS Consulting Unavailable YUHAS, DR SANTOS Primary Care Unavailable YUHAS, DR SANTOS Attending Unavailable YUHAS, DR SANTOS Admitting Unavailable YUHAS, DR SANTOS Attending Unavailable YUHAS, DR SANTOS Primary Care Unavailable YUHAS, DR SANTOS Consulting Unavailable YUHAS, DR SANTOS Attending Unavailable YUHAS, DR SANTOS Admitting Unavailable YUHAS, DR SANTOS Primary Care Unavailable YUHAS, DR SANTOS Primary Care Unavailable LESLYE, DR CHAN Gray Consulting Unavailable LESLYE, DR CHAN Gray Attending Unavailable LESLYE, DR CHAN Gray Admitting Unavailable Sami Brunson Consulting Unavailable YUHAS, DR SANTOS Primary Care Unavailable BENEANTHONYCT, DR SOSA Attending Unavailable BENEDICT, DR SOSA Admitting Unavailable BENEDICT, DR SOSA Consulting Unavailable YUHAS, DR SANTOS Admitting Unavailable YUHAS, DR SANTOS Primary Care Unavailable YUHAS, DR SANTOS Consulting Unavailable YUHAS, DR SANTOS Attending Unavailable ZIEBER, DR IAN Gray Consulting Unavailable YUHAS, DR SANTOS Admitting Unavailable YUHAS, DR SANTOS Primary Care Unavailable YUHAS, DR SANTOS Consulting Unavailable YUHAS, DR SANTOS Attending Unavailable YUHAS, DR SANTOS Consulting Unavailable YUHAS, DR SANTOS Attending Unavailable YUHAS, DR SANTOS Primary Care Unavailable YUHAS, DR SANTOS Admitting Unavailable YUHAS, DR SANTOS Consulting Unavailable YUHAS, DR SANTOS Attending Unavailable YUHAS, DR SANTOS Admitting Unavailable YUHAS, DR SANTOS Primary Care Unavailable BELPRE, DR LULA Hall Consulting Unavailable GAVIN, DR CHNA Gray Consulting Unavailable GAIVN, DR CHAN Gray Attending Unavailable GAVIN, DR CHAN Gray Admitting Unavailable YUHAS, DR SANTOS Primary Care Unavailable Yujose ramons, DO Santos Primary Care Provider MD Lula Del Rosario Attending Provider Lula Del Rosario Unavailable No, Physician Primary Care Provider Unavailabl e ETTA OAKES Attending Unavailabl e NO, PHYSICIAN Primary Care Unavailable ETTA OAKES Referring Unavailabl e ETTA OAKES Admitting Unavailabl e NO, PHYSICIAN Primary Care Unavailable ElizabethTom hood Unavailable Unavailable Unavailable Siva, Dr. Tom Gandhi Primary Care Unavaila domingo Bautista, Dr. Stone Referring Unavaila domingo Bautista, Dr. Stone Attending Unavaila ble YuTom hood DO Primary Care Provider [phone] Liza KNOTTER-FREIGHT TEAM ASSOCIATE, Veronica Reza Primary Care Provider Liza KNOTTER-MIGRATION AGENT, Veronica Reza Primary Care Provider Rolando KNOTTER-MIGRATION AGENT, Leeann Primary Care Provider [phone] Rolando KNOTTER-MIGRATION AGENTLeeann Primary Care Provider Skyler Balbuena Attending Unavailable Skyler Balbuena Admitting Unavailable Provider, None Primary Care Unavailable BOBBI STEEN Referring Unavailable CASTILLO, LEEANN Primary Care Unavailable LINDA CASTILLOLEY Referring Unavailable CASTILLO, LEEANN Primary Care Unavailable CASTILLO, LEEANN Referring Unavailable CASTILLO, LEEANN Primary Care Unavailable CASTILLO, LEEANN Referring Unavailable CASTILLO, LEEANN Primary Care Unavailable CASTILLO, LEEANN Referring Unavailable CASTILLO, LEEANN Primary Care Unavailable BOBBI STEEN Referring Unavailable CASTILLO, LEEANN Primary Care Unavailable CASTILLO, LEEANN Referring Unavailable CASTILLO, LEEANN Primary Care Unavailable SHOBHA DELONG Referring Unavailable CASTILLO, LEEANN Primary Care Unavailable APOLINAR MCKENZIE Attending Unavailable CASTILLO, LEEANN Referring Unavailable CASTILLO, LEEANN Primary Care Unavailable CASTILLO, LEEANN Referring Unavailable CASTILLO, LEEANN Primary Care Unavailable CASTILLO, LEEANN Referring Unavailable CASTILLO, LEEANN Primary Care Unavailable CASTILLO, LEEANN Referring Unavailable CASTILLO, LEEANN Primary Care Unavailable CASTILLO, LEEANN Referring Unavailable CASTILLO, LEEANN Primary Care Unavailable CASTILLO, LEEANN Referring Unavailable CASTILLO, LEEANN Primary Care Unavailable CASTILLO, LEEANN Referring Unavailable CASTILLO, LEEANN Primary Care Unavailable YUHAS, TOM L Referring Unavailable YUHAS, TOM L Primary Care Unavailable CASTILLO, LEEANN Referring Unavailable CASTILLO, LEEANN Primary Care Unavailable YUHAS, TOM L Referring Unavailable YUHAS, TOM L Primary Care Unavailable CASTILLO, LEEANN Referring Unavailable CASTILLO, LEEANN Primary Care Unavailable BOBBI STEEN Referring Unavailable CASTILLO, LEEANN Primary Care Unavailable CASTILLO, LEEANN Referring Unavailable CASTILLO, LEEANN Primary Care Unavailable CASTILLO, LEEANN Referring Unavailable CASTILLO, LEEANN Primary Care Unavailable CASTILLO, LEEANN Referring Unavailable CASTILLO, LEEANN Primary Care Unavailable CASTILLO, LEEANN Referring Unavailable CASTILLO, LEEANN Primary Care Unavailable CASTILLO, LEEANN Referring Unavailable CASTILLO, LEEANN Primary Care Unavailable CASTILLO, LEEANN Referring Unavailable CASTILLO, LEEANN Primary Care Unavailable CASTILLO, LEEANN Referring Unavailable CASTILLO, LEEANN Primary Care Unavailable CASTILLO, LEEANN Referring Unavailable CASTILLO, LEEANN Primary Care Unavailable CASTILLO, LEEANN Referring Unavailable CASTILLO, LEEANN Primary Care Unavailable CASTILLO, LEEANN Referring Unavailable CASTILLO, LEEANN Primary Care Unavailable CASTILLO, LEEANN Referring Unavailable CASTILLO, LEEANN Primary Care Unavailable CASTILLO, LEEANN Referring Unavailable CASTILLO, LEEANN Primary Care Unavailable CASTILLO, LEEANN Referring Unavailable CASTILLO, LEEANN Primary Care Unavailable CASTILLO, LEAENN Referring Unavailable CASTILLO, LEEANN Primary Care Unavailable CASTILLO, LEEANN Referring Unavailable CASTILLO, LEEANN Primary Care Unavailable CASTILLO, LEEANN Referring Unavailable CASTILLO, LEEANN Primary Care Unavailable CASTILLO, LEEANN Referring Unavailable CASTILLO, LEEANN Primary Care Unavailable CASTILLO, LEEANN Referring Unavailable CASTILLO, LEEANN Primary Care Unavailable CASTILLO, LEEANN Referring Unavailable CASTILLO, LEEANN Primary Care Unavailable CASTILLO, LEEANN Referring Unavailable CASTILLO, LEEANN Primary Care Unavailable CASTILLO, LEEANN Referring Unavailable CASTILLO, LEEANN Primary Care Unavailable CASTILLO, LEEANN Referring Unavailable CASTILLO, LEEANN Primary Care Unavailable CASTILLO, LEEANN Referring Unavailable CASTILLO, LEEANN Primary Care Unavailable CASTILLO, LEEANN Referring Unavailable CASTILLO, LEEANN Primary Care Unavailable CASTILLO, LEEANN Referring Unavailable CASTILLO, LEEANN Primary Care Unavailable CASTILLO, LEEANN Referring Unavailable CASTILLO, LEEANN Primary Care Unavailable CASTILLO, LEEANN Referring Unavailable CASTILLO, LEEANN Primary Care Unavailable CASTILLO, LEEANN Referring Unavailable CASTILLO, LEEANN Primary Care Unavailable CASTILLO, LEEANN Referring Unavailable CASTILLO, LEEANN Primary Care Unavailable CASTILLO, LEEANN Referring Unavailable CASTILLO, LEEANN Primary Care Unavailable CASTILLO, LEEANN Referring Unavailable CASTILLO, LEEANN Primary Care Unavailable CASTILLO, LEEANN Referring Unavailable CASTILLO, LEEANN Primary Care Unavailable CASTILLO, LEEANN Referring Unavailable CASTILLO, LEEANN Primary Care Unavailable CASTILLO, LEEANN Referring Unavailable CASTILLO, LEEANN Primary Care Unavailable CASTILLO, LEEANN Referring Unavailable CASTILLO, LEEANN Primary Care Unavailable CASTILLO, LEEANN Referring Unavailable CASTILLO, LEEANN Primary Care Unavailable CASTILLO, LEEANN Referring Unavailable CASTILLO, LEEANN Primary Care Unavailable CASTILLO, LEEANN Referring Unavailable CASTILLO, LEEANN Primary Care Unavailable CASTILLO, LEEANN Referring Unavailable CASTILLO, LEEANN Primary Care Unavailable YUHAS, TOM L Referring Unavailable YUHAS, TOM L Primary Care Unavailable YUHAS, TOM L Referring Unavailable YUHAS, TOM L Primary Care Unavailable YARI PETER Attending Unavailable YUHAS, TOM L Referring Unavailable YUHAS, TOM L Primary Care Unavailable YUHAS, TOM L Primary Care Unavailable TOM, SCOTT Attending Unavailable TOM, SCOTT Referring Unavailable YUHAS, TOM L Primary Care Unavailable TOM, SCOTT Attending Unavailable TOM, SCOTT Referring Unavailable YUHAS, TOM L Primary Care Unavailable TOM, SCOTT Attending Unavailable TOM, SCOTT Referring Unavailable YUHAS, TOM L Primary Care Unavailable MUKUL SOTELO Attending Unavailable MUKUL SOTELO Referring Unavailable YUHAS, TOM L Primary Care Unavailable CHIP GUTIÉRREZ Referring Unavailable [facility] Unavailable VANESSA TERAN Attending Unavailable CASTILLO, LEEANN Referring Unavailable CASTILLO, LEEANN Primary Care Unavailable RUSHER, MC S Attending Unavailable RUSHER, MC S Attending Unavailable RUSHERIAN Attending Unavailable YUHAS, TOM L Referring Unavailable RUSHER, MC S Attending Unavailable RUSHER, MC S Attending Unavailable YUHAS, TOM L Referring Unavailable RUSHER, MC S Referring Unavailable RUSHER, MC S Attending Unavailable RUSHER, MC S Attending Unavailable RAJAN LANDAVERDE Attending Unavailable RUSHER, MC S Attending Unavailable RUSHER, MC S Attending Unavailable CHIP GAVIN Attending Unavailable KUNS, SADAF Primary Care Unavailable GITA WATTS Attending Unavailable CHIP GAVIN Referring Unavailable CASTILLO, LEEANN M Primary Care Unavailable ASHLEY RODRIGUEZ Attending Unavailable KUNS, SADAF Referring Unavailable CASTILLO, LEEANN Primary Care Unavailable CASTILLO, LEEANN Primary Care Unavailable JOSE GOSS Attending Unavailable TORI TATE Attending Unavailable TOM, SCOTT Referring Unavailable YUHAS, TOM L Primary Care Unavailable BOBBI STEEN Consulting Unavailable EUFEMIA GOODE Admitting Unavailab FREDA Roldan Consulting Unavailable PRISCILLAMAURICIO Consulting Unavailable YUHAS, TOM L Referring Unavailable YUHAS, TOM L Primary Care Unavailable NATHAN HECTOR Referring Unavailable YUHAS, TOM L Primary Care Unavailable POLLY BELL Referring Unavailable YUHAS, TOM L Primary Care Unavailable POLLY BELL Referring Unavailable YUHAS, TOM L Primary Care Unavailable YUHAS, TOM L Primary Care Unavailable BOBBI STEEN Attending Unavailable BOBBI STEEN Referring Unavailable YUHAS, TOM L Primary Care Unavailable CHRIS HERNANDEZ Referring Unavailable YUHAS, TOM L Primary Care Unavailable Yuhas, Tom Hiram Primary Care Provider Tom Gottlieb MD Unavailable BOBBI STEEN Attending Unavailable YUHAS, TOM L Referring Unavailable KUNS, SADAF Primary Care Unavailable CASTILLO, LEEANN Attending Unavailable KUNS, SADAF Referring Unavailable CASTILLO, LEEANN Primary Care Unavailable CASTILLO, LEEANN Attending Unavailable CASTILLO, LEEANN Referring Unavailable CASTILLO, LEEANN Primary Care Unavailable DEDE MORSE Attending Unavailable CASTILLO, LEEANN Referring Unavailable CASTILLO, LEEANN Primary Care Unavailable CORIN BLANKENSHIP Attending Unavailable CASTILLO, LEEANN Referring Unavailable CASTILLO, LEEANN Primary Care Unavailable CASTILLO, LEEANN Attending Unavailable CASTILLO, LEEANN Referring Unavailable CASTILLO, LEEANN Primary Care Unavailable YUHAS, TOM L Attending Unavailable YUHAS, TOM L Referring Unavailable YUHAS, TOM L Primary Care Unavailable CASTILLO, LEEANN Attending Unavailable CASTILLO, LEEANN Referring Unavailable CASTILLO, LEEANN Primary Care Unavailable ALEA MCKENZIE Attending Unavailable CASTILLO, LEEANN Referring Unavailable CASTILLO, LEEANN Primary Care Unavailable KUNS, SADAF Attending Unavailable KUNS, SADAF Referring Unavailable KUNS, SADAF Primary Care Unavailable Bobby Portillo Admitting Unavaila ble Yuhas, Tom Primary Care Unavailable Bobby Portillo Attending Unavaila Lissa Lopez Consulting Unavailable Nancy Estrada Consulting Unavailable Norma Isabel Consulting Unavailable Mary Jackson Consulting Unavailable Maricarmen Reddy Consulting Unavailable Liza Laurent Consulting Unavailable Natali Dasilva Consulting Unavailable Martin Dior Consulting Unavailable Marley Barrera Consulting Unavailable Alfa Arrington Consulting Unavailable Raffi Lopez Consulting Unavailable Perry Tomas Consulting UnavailTio Ma Consulting Unavailable Myrna Interiano Consulting Unavailable Derick Perkins Consulting Unavailable Nuha Martinez Consulting UnavailSherif Esposito Consulting Unavailable Amaury Castaneda Consulting Unavailable Cierra Slaughter Consulting Unavailable Meera Shields Consulting Unavailable Corin Evans Consulting Unavailable Aren Song Consulting Unavailable Messi Fyr Consulting Unavailable Joyce Chapman Consulting Unavailable Leonora Levine Consulting Unavailable Lev Webster Consulting Unavailab Rigo Greenfield Consulting Unavailable Abilio Valentin Consulting Unavailable Alma Rosa Romero Consulting Unavailable Ever Kurtz Consulting Unavailable Jodee Mckeon Consulting Unavailable David Ely Consulting Unavailable Mc Duarte Consulting Unavailable Kellie Elena Consulting Unavailable Hebert Bonilla Consulting Unavailable Thomas Harris Consulting Unavailable Sully Gavin Consulting Unavailable Yanet Hector Consulting Unavailable Dunia Franz Consulting Unavailable Carlos Alcala Consulting Unavailable Shanice Guardado Consulting Unavailable Cathy Sparks Consulting Unavailable Jada Bob Consulting Unavailable Vincent Oliveira Consulting Unavailab Myrna Hoffmann Attending Unavailable Erin Somers Consulting Unavailable Corin Evans Admitting Unavailable Tom Paniagua Primary Care Unavailable Kourtney Watst Consulting Unavailable Oksana Lima Consulting Unavailable Gita Arrington Consulting Unavail able Charan Bautista Consulting Unavailable José Manuel Zheng Consulting Unavailab Chip Locke Consulting Unavailable Awilda Simental Consulting Unavailable William, Mei Najeeb Consulting Unavailab Baltazar Burt Consulting Unavailable Aissatou Thomas Consulting Unavailable Ramila Castillo Consulting Unavailable Leeann Diaz Primary Care Provider Gita Watts DO Unavailable [phone] Medications Current Medications Medication Drug Class(es) Dates Sig (Normalized) Sig (Original) acetaminophen 500 mg oral tablet (20 sources) Start: 10-06-2023 acetaminophen (TYLENOL EXTRA STRENGTH) 500 mg tablet Every 8 hours 10/06/2023 Active Start: 10-06-2023 End: 10-09-2023 take 1000 mg by mouth every eight hours Acetaminophen Active 1000 MG PO Every 8 hours 0 October 09, 2023 12:12pm Start: 10-24-2018 End: 11-22-2018 take 650 mg by mouth every six hours Acetaminophen Discontinued 650 MG PO Every 6 hours 0 October 24, 2018 12:00am November 22, 2018 6:30pm amitriptyline hydrochloride 10 mg oral tablet (2 sources) Tricyclic Antidepressant Start: 09-05-2010 take 1 tablet by mouth at bedtime Amitriptyline HCl 10 mg 1tabs Orally hs Sep, Active amLODIPine (18 sources) Dihydropyridine Calcium Channel Shayne Start: 11-20-2021 take 1 tablet by mouth once daily Amlodipine Active 1 TAB PO DAILY November 20, 2021 3:25pm Start: 08-15-2018 End: 09-26-2023 take 10 mg by mouth once daily Amlodipine Discontinued 10 MG PO Daily November 29, 2018 8:10am September 26, 2023 6:37pm ARIPiprazole (2 sources) Atypical Antipsychotic Abilify A ctive aspirin 81 mg delayed release oral tablet (20 sources) Platelet Aggregation Inhibitor, Nonsteroidal Anti-inflammatory Drug Start: 10-08-2023 aspirin 81 mg Daily 10/08/2023 Active Start: 04-13-2020 take 1 tablet by lita th twice daily aspirin, enteric coated (ECOTRIN LOW STRENGTH) 81 mg EC tablet Take 1 tablet by mouth twice daily. 60 tablet 04/13/2020 Active Start: 09-11-2017 End: 08-15-2018 take 1 tablet by mouth once daily Aspirin (Aspir-81) 81 mg Tablet,Delayed Release (Dr/Ec) Discontinued 81 MG PO Daily September 11, 2017 12:00am August 15, 2018 2:28pm atorvastatin 80 mg oral tablet (20 sources) HMG-CoA Reductase Inhibitor Start: 03-14-2024 take 0.5 tablet by mouth in the morning atorvastatin (LIPITOR) 80 mg tablet Take 0.5 tablets (40 mg total) by mouth in the morning. 03/14/2024 Active Start: 02-28-2024 take 1 tablet by lita th once daily atorvastatin (Lipitor) 80 mg tablet Indications: Hyperlipidemia, unspecified hyperlipidemia type TAKE 1 TABLET BY MOUTH ONCE DAILY. 90 tablet 3 02/28/2024 Active Start: 10-08-2023 take 1 tablet by lita th once daily atorvastatin (Lipitor) 80 mg tablet Indications: Hyperlipidemia, unspecified hyperlipidemia type Take 1 tablet (80 mg) by mouth once daily. 90 tablet 11/01/2023 Active Start: 09-17-2017 End: 10-20-2017 take 20 mg by mouth once daily in the evening Atorvastatin Discontinued 20 MG PO Every evening September 17, 2017 12:00am October 20, 2017 5:04pm Benztropine (4 sources) Anticholinergic, Antihistamine Start: 11-20-2021 take 1 tablet by mouth twice daily Benztropine Active 1 TAB PO TWICE A DAY November 20, 2021 3:25pm Start: 11-06-2018 End: 11-22-2018 take 0.5 mg by mouth once daily in the morning Benztropine Discontinued 0.5 MG PO Every morning 14 November 06, 2018 12:00am November 22, 2018 6:30pm bisacodyl 10 mg rectal suppository (2 sources) Stimulant Laxative Start: 10-06-2023 Bisacodyl A ctive 10 MG [place] Daily 0 October 06, 2023 12:00am Start: 09-27-2023 End: 10-15-2023 bisacodyL (DULCOLAX) 10 mg s uppository Insert 1 suppository (10 mg total) into the rectum in the morning. 0 09/27/2023 10/15/2023 Discontinued (Therapy completed) cariprazine 6 mg oral capsule (2 sources) Atypical Antipsychotic Start: 04-09-2019 VRAYLAR 6 mg cap Take 1.5 mg by mouth. 04/09/2019 Active carvedilol 12.5 mg oral tablet (20 sources) alpha-Adrenergic Shayne, beta-Adrenergic Shayne Start: 04-17-2023 End: 10-15-2023 take 1 tablet by mouth in the morning, then take 1 tablet by mouth at bedtime carvediloL (COREG) 12.5 mg tablet Indications: Chronic diastolic CHF (congestive heart failure) ([facility]) Take 1 tablet (12.5 mg total) by mouth in the morning and 1 tablet (12.5 mg total) before bedtime. 180 tablet 1 10/15/2023 Active cholecalciferol 0.125 mg oral tablet (19 sources) Vitamin D Start: 03-14-2024 take 1 tablet by mouth in the morning cholecalciferol, vitamin D3, 5,000 units tablet Take 1 tablet (5,000 Units total) by mouth in the morning. 90 tablet 3 03/14/2024 Active Start: 09-26-2023 take 5000 [IU] by mo [facility] once daily Cholecalciferol (Vitamin D3) Active 5000 UNIT PO Daily September 26, 2023 12:00am [facility] cholecalciferol, vitamin D3, 5,000 units tablet Take 1 tablet (5,000 Units total) by mouth in the morning. 0 Active cloNIDine (20 sources) Central alpha-2 Adrenergic Agonist Start: 11-20-2021 take 1 tablet by mouth twice daily Clonidine Hcl Active 1 TAB PO TWICE A DAY November 20, 2021 3:25pm Start: 10-20-2018 End: 09-26-2023 take 0.1 mg by mouth three times daily Clonidine Hcl Discontinued 0.1 MG PO Three times daily 90 November 29, 2018 8:10am September 26, 2023 6:38pm Start: 10-20-2018 End: 10-24-2018 take 0.1 mg by mouth every six hours Clonidine Hcl Discontinued 0.1 MG PO Q6H October 20, 2018 12:00am October 24, 2018 10:28am Start: 08-15-2018 End: 10-20-2018 take 0.1 mg by mouth twice daily Clonidine Hcl Discontinued 0.1 MG PO Twice daily August 15, 2018 12:00am October 20, 2018 11:50am cloNIDine HCl Ac tive clopidogrel 75 mg oral tablet (6 sources) P2Y12 Platelet Inhibitor Start: 01-22-2024 End: 01-21-2025 take 1 tablet by mouth once daily clopidogrel (Plavix) 75 mg tablet Indications: CAD, multiple vessel , Obesity (BMI 30-39.9) , History of PTCA Take 1 tablet (75 mg) by mouth once daily. 90 tablet 3 01/22/2024 01/21/2025 Active CPAP Mask and supplies misc (2 sources) Start: 02-29-2012 CPAP Mask and supplies misc as directed hs Feb, Active 24 hr desvenlafaxine succinate 50 mg extended release oral tablet (1 source) Serotonin and Norepinephrine Reuptake Inhibitor Start: 11-20-2021 take 1 tablet by mouth once daily Desvenlafaxine Succinate Active 1 TAB PO DAILY November 20, 2021 3:25pm dextromethorphan hydrobromide 30 mg / pyrilamine maleate 30 mg oral tablet (2 sources) Uncompetitive O-ubueye-S-aspartat e Receptor Antagonist, Sigma-1 Agonist Start: 09-09-2020 [place] DMT 30-30 MG 1 tablet Orally every 6-8 hours for 7 days Sep, Active diclofenac sodium 0.01 mg/mg topical gel (1 source) Nonsteroidal Anti-inflammatory Drug Start: 10-06-2023 apply 2 g topically three times daily Diclofenac Sodium Active 2 GM TOPICAL Three times daily October 06, 2023 12:00am docusate sodium 100 mg oral capsule (2 sources) Start: 10-06-2023 take 100 mg by mouth twice daily Docusate Sodium Active 100 MG PO Twice daily 0 October 06, 2023 12:00am Start: 10-06-2023 Docusate Sodiu m (Enemeez) 283 mg/5 mL Enema Active 283 MG [place] Daily October 06, 2023 12:00am DULoxetine 30 mg delayed release oral capsule (20 sources) Serotonin and Norepinephrine Reuptake Inhibitor Start: 06-02-2022 take 1 capsule by mouth once daily DULoxetine (CYMBALTA) 30 mg capsule TAKE 1 CAPSULE BY MOUTH EVERY DAY 08/07/2023 Active Start: 06-02-2022 take 1 capsule by mo uth in the morning DULoxetine (CYMBALTA) 60 mg capsule Take 1 capsule (60 mg total) by mouth in the morning. 60 mg in morning 30 at night. 0 06/02/2022 Active Start: 09-30-2022 DULoxetine (CY MBALTA) 60 mg capsule Take 90 mg by mouth in the morning. 90 mg in morning . 06/02/2022 Active empagliflozin 25 mg oral tablet (20 sources) Sodium-Glucose Cotransporter 2 Inhibitor Start: 05-23-2024 take 1 tablet by mouth in the morning JARDIANCE 25 mg tablet tablet Indications: Type 2 diabetes mellitus with diabetic peripheral angiopathy without gangrene, with long-term current use of insulin ([facility]) TAKE 1 TABLET (25 MG TOTAL) BY MOUTH IN THE MORNING 90 tablet 3 05/23/2024 Active Start: 09-26-2023 take 1 tablet by liat th once daily Empagliflozin (Jardiance) 25 mg tablet Active 25 MG PO Daily September 26, 2023 12:00am Start: 02-05-2023 take 1 tablet by lita th once daily Jardiance 10 MG Oral Tablet TAKE 1 TABLET BY MOUTH ONCE DAILY Quantity: 0 Refills: 0 Ordered: 06-Feb-2023 DO Start : 05-Feb-2023 Active Exenatide Microspheres (Bydureon Bcise) 2 mg/0.85 mL auto-injector (1 source) Start: 11-20-2021 Exenatide Microspheres (Bydureon Bcise) 2 mg/0.85 mL auto-injector Active 2 MG SUBCUT Every Week November 20, 2021 3:25pm Haloperidol (1 source) Typical Antipsychotic Start: 11-20-2021 take 0.5 tablet by mouth twice daily Haloperidol Active 0.5 TAB PO TWICE A DAY November 20, 2021 3:25pm hydrOXYzine pamoate 25 mg oral capsule (8 sources) Antihistamine Start: 01-28-2019 take 2 capsules by mouth every twenty-four hours as needed hydrOXYzine pamoate (VISTARIL) 25 mg capsule Take 50 mg by mouth at bedtime as needed. 01/28/2019 Active Start: 11-22-2018 End: 09-26-2023 take 50 mg by mouth three times daily Hydroxyzine Hcl Discontinued 50 MG PO Three times daily November 29, 2018 8:10am September 26, 2023 6:38pm Insulin Aspart U-100 (Novolog Flexpen U-100 Insulin) 100 unit/mL (3 mL) Insulin Pen (2 sources) Start: 10-06-2023 Insulin Aspart U-100 (Novolog Flexpen U-100 Insulin) 100 unit/mL (3 mL) Insulin Pen Active 0 UNIT SUBCUT 3X/Day with meals and bedtime 0 October 06, 2023 12:00am 3 ml insulin glargine 300 unt/ml pen injector (20 sources) Insulin Analog Start: 12-27-2023 Toujeo Max U-3 00 SoloStar 300 unit/mL (3 mL) injection INJECT 66 UNITS UNDER THE SKIN IN THE MORNING. 01/01/2024 Active Start: 10-15-2023 insulin glargi ne U-300 conc (TOUJEO MAX U-300 SOLOSTAR) 300 unit/mL (3 mL) insulin pen Inject 66 Units under the skin in the morning. 60 mL 1 10/15/2023 Active Start: 09-26-2023 End: 10-15-2023 insulin glargine (LANTUS, SE MGLEE) 100 unit/mL (3 mL) insulin pen Inject 33 Units under the skin nightly. 0 09/26/2023 10/15/2023 Discontinued (Therapy completed) Start: 08-07-2023 TOUJEO MAX U-3 00 SOLOSTAR 300 unit/mL (3 mL) insulin pen Indications: Type 2 diabetes mellitus with diabetic peripheral angiopathy without gangrene, with long-term current use of insulin [place] Inject up to 100 units daily 30 mL 3 08/07/2023 Active Start: 10-12-2022 Toujeo Max Nirmala oStar 300 UNIT/ML Subcutaneous Solution Pen-injector inject as directed Quantity: 0 Refills: 0 Ordered: 17-Oct-2022 DO Start : 12-Oct-2022 Active Insulin Glargine U-300 Conc (1 source) Start: 11-20-2021 Insulin Glargi ne U-300 Conc (Toujeo Max U-300 Solostar) 300 unit/mL (3 mL) insulin pen Active 54 UNIT SUBCUT DAILY November 20, 2021 3:25pm insulin glargine,hum.rec.an log (TOUJEO MAX U-300 SOLOSTAR SUBQ) (3 sources) End: 07-16-2024 inject 66 [IU] by subcutaneous injection once daily at bedtime insulin glargine,hum.rec.anlog (TOUJEO MAX U-300 SOLOSTAR SUBQ) Inject 66 Units under the skin once daily at bedtime. Take as directed per insulin instructions. 07/16/2024 Discontinued (Therapy completed) inject 66 [IU] by hanna bcutaneous injection once daily at bedtime insulin glargine,hum.rec.anlog (TOUJEO M AX U-300 SOLOSTAR SUBQ) Inject 66 Units under the skin once daily at bedtime. Take as directed per insulin instructions. Active inject 66 [IU] by hanna bcutaneous injection once daily at bedtime insulin glargine,hum.rec.anlog (TOUJEO M AX U-300 SOLOSTAR SUBQ) Inject 66 Units under the skin once daily at bedtime. Take as directed per insulin instructions. 0 Active 3 ml insulin lispro 100 unt/ml pen injector (20 sources) Insulin Analog Start: 09-26-2023 inject 400 mg by subcutaneous injection four times daily at mealtime insulin lispro (HumaLOG) 100 unit/mL insulin pen Inject 1-5 Units under the skin 4 (four) times a day with meals and nightly. For blood glucose (BG) 151-200= 1 unit; BG 201-250 = 2 units; BG 251-300 = 3 units; BG 301-350 = 4 units; BG 351-400 = 5 units. Notify prescriber if BG below 60 or greater than 400 mg/dL 15 mL 12 09/26/2023 Active Start: 09-26-2023 End: 10-06-2023 inject 1 dose by subcutaneous injection at bedtime Insulin Lispro (Humalog Kwikpen Insulin) 200 unit/mL (3 mL) insulin pen Discontinued 1 sliding scale dose SUBCUT Before meals and at bedtime September 26, 2023 12:00am October 06, 2023 11:25am Start: 08-07-2023 HumaLOG KwikPe n Insulin 200 unit/mL (3 mL) insulin pen Indications: Type 2 diabetes mellitus with diabetic peripheral angiopathy without gangrene, with long-term current use of insulin ([facility] Up to 20 units with meals + scale with meals, up to 100 units daily in divided doses 45 mL 3 08/07/2023 Active Start: 11-16-2022 HumaLOG KwikPe n 200 UNIT/ML Subcutaneous Solution Pen-injector PLEASE SEE ATTACHED FOR DETAILED DIRECTIONS Quantity: 30 Refills: 0 Ordered: 16-Nov-2022 DO Start : 16-Nov-2022 Active insulin lispro ( AdmeLOG,HumaLOG) 100 unit/mL injection Inject under the skin 3 (three) times a day before meals . 0 Active 3 ml insulin lispro 50 unt/ml / insulin lispro protamine, human 50 unt/ml pen injector (3 sources) Insulin Analog insulin lispro protamin-lispro (HumaLOG Mix 50-50 KwikPen) 100 unit/mL (50-50) injection Inject under the skin 2 times a day with meals. Take as directed per insulin instructions. Per sliding scale Active lactulose 667 mg/ml oral solution (1 source) Osmotic Laxative Start: take 30 g by mouth once daily Lactulose Active 30 GM PO Daily October 06, 2023 12:00am lamoTRIgine 200 mg oral tablet (2 sources) Mood Stabilizer, Anti-epileptic Agent Start: take 1 tablet by mouth once daily at bedtime lamoTRIgine (LAMICTAL) 200 mg tablet TAKE 1 TABLET BY MOUTH EVERYDAY AT BEDTIME 1 03/12/2019 Active loperamide hydrochloride 2 mg oral capsule (1 source) Opioid Agonist Start: take 2 mg by mouth every two hours Loperamide Active 2 MG PO Q2H October 06, 2023 12:00am LORazepam 0.5 mg oral tablet (20 sources) Benzodiazepine Start: take 0.5 mg by mouth at bedtime Lorazepam Active 0.5 MG PO Bedtime October 06, 2023 12:00am Start: 09-26-2023 LORazepam (ATI VAN) 0.5 mg tablet Indications: Cauda equina compression (CMS-HCC) Take 1mg in the morning and 0.5mg at bedtime 15 tablet 09/26/2023 Active Start: 12-28-2022 take 0.5 tablet by m outh in the evening as needed LORazepam 1 MG Oral Tablet TAKE 1MG IN AM 1/2 TAB AT PM NEEDED Quantity: 0 Refills: 0 Ordered: 05-Feb-2023 DO Start : 28-Dec-2022 Active Start: 12-28-2022 take 1 mg by mouth o nce daily in the morning Lorazepam Active 1 MG PO Every morning September 26, 2023 12:00am Start: 09-11-2017 End: 10-20-2018 take 1.5 mg by mouth twice daily Lorazepam Discontinued 1.5 MG PO Twice daily September 11, 2017 12:00am October 20, 2018 11:52am take 1 tablet by lita th every six hours as needed for anxiety LORazepam (ATIVAN) 0.5 MG tablet Take 1 (one) tablet (0.5 mg total) by mouth every 6 (six) hours as needed for anxiety Bid . 0 Active losartan potassium 25 mg oral tablet (20 sources) Angiotensin 2 Receptor Shayne Start: 01-21-2024 take 1 tablet by mouth once daily losartan (Cozaar) 25 mg tablet Indications: Hypertension, unspecified type TAKE 1 TABLET BY MOUTH EVERY DAY 90 tablet 3 01/21/2024 Active Start: 09-26-2023 End: 10-09-2023 take 1 tablet by mouth in the morning losartan (COZAAR) 25 mg tablet Take 1 tablet (25 mg total) by mouth in the morning. 09/26/2023 Active Start: 09-17-2017 End: 08-15-2018 take 50 mg by mouth twice daily Losartan Discontinued 50 MG PO Twice daily 60 September 17, 2017 12:00am August 15, 2018 2:28pm Start: 09-11-2017 End: 09-17-2017 take 50 mg by mouth once daily Losartan Discontinued 5 0 MG PO Daily September 11, 2017 12:00am September 17, 2017 10:36am MEDICATION, NON-DATABASE (2 sources) MEDICATION, NON-DATABASE supplements Active metFORMIN (5 sources) Biguanide Start: 11-20-2021 take 1 tablet by mouth twice daily Metformin Active 1 TAB PO TWICE A DAY November 20, 2021 3:25pm take 1 tablet by lita th twice daily at mealtime metFORMIN (GLUCOPHAGE) 500 mg tablet Missael e 500 mg by mouth twice daily with meals. Active take 1 tablet by mouth once lora y metFORMIN HCl 500 MG 1 tablet with a meal Orally Once a day Active mupirocin 0.02 mg/mg topical ointment (2 sources) RNA Synthetase Inhibitor Antibacterial Start: 04-01-2020 mupirocin (BACTROBAN ) 2 % ointment Indications: Pre-op exam , Primary osteoarthritis of right knee , Essential hypertension , S/P CABG (coronary artery bypass graft) , Unspecified sleep apnea , Prediabetes , Atherosclerosis of [place] coronary artery of [place] heart without angina pectoris , Vocal cord granuloma , Hyperlipidemia, unspecified hyperlipidemia type , Esophageal stricture Apply 0.5 inch with cotton swab (Q-tip) to each nostril in the morning and evening for 5 days prior to and including day of surgery. 22 g 04/01/2020 Active nitroglycerin 0.4 mg sublingual tablet (20 sources) Nitrate Vasodilator Start: 10-17-2023 End: 10-16-2024 nitroglycerin (Nitrostat) 0.4 mg SL tablet Indications: CAD, multiple vessel Place 1 tablet (0.4 mg) under the tongue every 5 minutes if needed for chest pain. May repeat dose every 5 minutes for up to 3 doses total. 100 tablet 11 10/17/2023 10/16/2024 Active Start: 10-06-2023 nitroglycerin (NITROSTAT) 0.4 MG SL tablet Q5M 10/06/2023 Active Start: 10-06-2023 End: 10-09-2023 Nitroglycerin Active 0.4 MG SUBLINGUAL Q5M October 09, 2023 4:26pm nystatin [id number] unt/ml oral suspension (1 source) Polyene Antifungal Start: 01-04-2023 End: 01-14-2023 take 5 mL by mouth four times daily nystatin (MYCOSTATIN) 100,000 unit/mL suspension Take 5 mL (500,000 Units total) by mouth 4 (four) times a day for 10 days . 200 mL 0 01/04/2023 01/14/2023 Active omega 4-yje-ryb-fish oil (Fish OiL) 1,000 mg (120 mg-180 mg) capsule (3 sources) take 1 capsule by mouth once daily omega 3-upt-vxw-fish oil (Fish OiL) 1,000 mg (120 mg-180 mg) capsule Take 1 capsule (1,000 mg) by mouth once daily. Active take 1 capsule by mouth once vicky ly omega 7-psa-vtd-fish oil (Fish OiL) 1,000 mg (120 mg-180 mg) capsule Take 1 capsule (1,000 mg) by mouth once daily. 0 Active omega 2-phn-itq-fish oil (Fi sh OiL) 300-1,000 mg capsule (18 sources) omega 3-dha-epa- fish oil (Fish OiL) 300-1,000 mg capsule Take by mouth. Active omega 3-dha-epa- fish oil (Fish OiL) 300-1,000 mg capsule Take by mouth. 0 Active pantoprazole 20 mg delayed release oral tablet (2 sources) Proton Pump Inhibitor Start: 04-11-2020 take 1 tablet by mouth once daily pantoprazole DR (PROTONIX) 20 mg tablet Take 1 tablet by mouth once daily for 14 days. 14 tablet 04/11/2020 Active psyllium 400 mg oral capsule (2 sources) Start: 09-11-2023 psyllium husk (MetamuciL) 0.4 gram capsule Indications: Constipation, unspecified constipation type Take 1 capsule (0.4 g total) by mouth in the morning. 0 09/11/2023 Active sacubitril 24 mg / valsartan 26 mg oral tablet (4 sources) Angiotensin 2 Receptor Shayne Start: 09-04-2023 take 1 tablet by mouth at bedtime ENTRESTO 24-26 mg tablet Indications: Chronic diastolic CHF (congestive heart failure) ([facility]) TAKE 1 TABLET BY MOUTH IN THE MORNING AND BEFORE BEDTIME 180 tablet 0 09/04/2023 Active Start: 02-19-2023 take 1 tablet by lita twice daily Entresto 24-26 MG Oral Tablet Take 1 tablet twice daily Quantity: 180 Refills: 3 Ordered: 20-Feb-2023 DO Start : 19-Feb-2023 Active Semaglutide (2 sources) Start: 09-26-2023 inject 1 mg by subcutaneous injection every week Semaglutide (Ozempic) 1 mg/dose (4 mg/3 mL) pen injector Active 2 MG SUBCUT .weekly September 26, 2023 12:00am semaglutide (OZEMPIC SUBCUTANEOUS) (2 sources) inject 1 dose by subcutaneous injection every week semaglutide (OZEMPIC SUBCUTANEOUS) Inject 1 Dose subcutaneously one time a week. 50 mg weekly Active semaglutide (OZEMPIC) 2 mg/dose (8 mg/3 mL) pen injector (7 sources) Start: 12-27-2023 semaglutide (O ZEMPIC) 2 mg/dose (8 mg/3 mL) pen injector Indications: Type 2 diabetes mellitus with diabetic peripheral angiopathy without gangrene, with long-term current use of insulin (CMS-HCC) Inject 2 mg under the skin every 7 days. 9 mL 3 12/27/2023 Active Start: 09-26-2023 End: 10-15-2023 semaglutide (OZEMPIC) 2 mg/d ose (8 mg/3 mL) pen injector Indications: Type 2 diabetes mellitus with diabetic peripheral angiopathy without gangrene, with long-term current use of insulin (CMS-HCC) Inject 2 mg under the skin every 7 days. On 0 09/26/2023 10/15/2023 Discontinued (Therapy completed) Start: 08-07-2023 semaglutide (O ZEMPIC) 2 mg/dose (8 mg/3 mL) pen injector Indications: Type 2 diabetes mellitus with diabetic peripheral angiopathy without gangrene, with long-term current use of insulin (CMS-HCC) Inject 2 mg under the skin every 7 days. 3 mL 11 08/07/2023 Active semaglutide (Ozempic) 2 mg/dose (8 mg/3 mL) pen injector (1 source) semaglutide (Oze mpic) 2 mg/dose (8 mg/3 mL) pen injector Inject 2 mg under the skin every 7 days. Active spironolactone 25 mg oral tablet (20 sources) Aldosterone Antagonist Start: 10-08-19 End: 10-16-19 take 1 tablet by mouth once daily spironolactone (Aldactone) 25 mg tablet Indications: Primary hypertension Take 1 tablet (25 mg) by mouth once daily. 30 tablet 11 10/17/2023 10/16/2024 Active Start: 10-08-2023 take 12.5 mg by mout h once daily Spironolactone Active 12.5 MG PO Daily October 08, 2023 12:00am End: 10-17-2023 take 0.5 tablet by mouth once daily spironolactone (Aldactone) 25 mg tablet Take 0.5 tablets (12.5 mg) by mouth once daily. 0 10/17/2023 Discontinued (Dose adjustment) tamsulosin hydrochloride 0.4 mg oral capsule (18 sources) alpha-Adrenergic Shayne Start: 11-26-2023 take 2 capsules by mouth at bedtime tamsulosin (FLOMAX) 0.4 mg capsule Indications: History of urinary retention Take 2 pills by mouth prior to bedtime 180 capsule 2 11/26/2023 Active Start: 09-26-2023 End: 07-16-2024 take 1 capsule by mouth once daily tamsulosin (FLOMAX) 0.4 mg capsule Indications: History of urinary retention Take 1 capsule (0.4 mg total) by mouth nightly. 90 capsule 1 10/15/2023 11/26/2023 Discontinued (Reorder) ticagrelor 90 mg oral tablet (15 sources) Start: 10-08-2023 End: 01-22-2024 ticagrelor (BRILINTA) 90 mg tablet Twice daily 0 10/08/2023 Active traZODone hydrochloride 100 mg oral tablet (13 sources) Serotonin Reuptake Inhibitor Start: 01-31-2024 take 1 tablet by mouth once daily as needed traZODone (DESYREL) 100 mg tablet Take 1 tablet (100 mg total) by mouth nightly as needed. 01/31/2024 Active Start: 11-20-2021 take 1 tablet by lita th once daily in the evening Trazodone Active 1 TAB PO Every Evening November 20, 2021 3:25pm Start: 11-22-2018 End: 11-29-2018 take 50 mg by mouth at bedtime Trazodone Discontinued 50 MG PO Bedtime November 21, 2018 11:00pm November 29, 2018 8:07am Start: 10-14-2018 End: 10-20-2018 take 50 mg by mouth at bedtime Trazodone Discontinued 50 MG PO Bedtime October 14, 2018 12:00am October 20, 2018 11:52am vilazodone hydrochloride 40 mg oral tablet (4 sources) Start: 03-31-2019 take 1 tablet by mouth once daily in the morning VIIBRYD 40 mg TAKE 1 TABLET BY MOUTH EVERY DAY IN THE MORNING 1 03/31/2019 Active Viibryd Active vitamin b12 1 mg oral tablet (20 sources) Vitamin B12 Start: 03-28-2024 take 1 tablet by mouth in the morning cyanocobalamin 1000 MCG tablet Take 1 tablet (1,000 mcg total) by mouth in the morning. 90 tablet 3 03/28/2024 Active Start: 10-06-2023 End: 10-06-2023 take 1000 ug by mouth once daily in the morning Cyanocobalamin (Vitamin B-12) Discontinued 1000 MCG PO Every morning 0 October 06, 2023 12:00am October 06, 2023 2:11pm Start: 08-04-2023 End: 07-16-2024 cyanocobalamin (VITAMIN B-12 ) 100 MCG tablet Take 10 tablets (1,000 mcg total) by mouth in the morning. 0 08/04/2023 Active Start: 01-15-2023 take 1 tablet by [facility] twice daily Vitamin B-12 100 MCG Oral Tablet Take 1 tablet twice daily Quantity: 0 Refills: 0 Ordered: 15-Jan-2023 DO Start : 15-Jan-2023 Active Completed/Discontinued Medications Medication Drug Class(es) Dates Sig (Normalized) Sig (Original) [id number] 200 actuat albuterol 0.09 mg/actuat metered dose inhaler (2 sources) beta2-Adrenergic Agonist Start: 08-12-2023 End: 09-19-2023 take 2 puff(s) by mouth every four hours as needed for wheezing albuterol (PROVENTIL HFA;VENTOLIN HFA) 90 mcg/actuation inhaler INHALE 2 PUFFS BY MOUTH EVERY 4 HOURS NEEDED FOR WHEEZING OR SHORTNESS OF BREATH 0 08/12/2023 09/19/2023 Discontinued ALPRAZolam 1 mg oral tablet (3 sources) Benzodiazepine Start: 10-14-2018 End: 10-20-2018 take 1 mg by mouth twice daily Alprazolam Discontinued 1 MG PO Twice daily October 14, 2018 12:00am October 20, 2018 11:52am aluminum hydroxide 40 mg/ml / magnesium hydroxide 40 mg/ml / simethicone 4 mg/ml oral suspension (2 sources) Start: 10-06-2023 End: 10-09-2023 take 1 mL by mouth every four hours Alum-Mag Hydroxide-Simeth (Mag-Al Plus) 200-200-20 mg/5 mL Suspension Discontinued 30 ML PO Q4H 0 October 06, 2023 12:00am October 09, 2023 4:36pm bempedoic acid 180 mg oral tablet (6 sources) Start: 08-23-2023 End: 10-15-2023 take 1 tablet by mouth once daily in the morning NEXLETOL 180 mg tablet TAKE 1 TABLET BY MOUTH EVERY DAY IN THE MORNING 0 08/23/2023 10/15/2023 Discontinued (Therapy completed) 24 hr buPROPion hydrochloride 150 mg extended release oral tablet (3 sources) Aminoketone Start: 10-14-2018 End: 10-20-2018 take 150 mg by mouth once daily Bupropion Hcl Discontinued 150 MG PO Daily October 14, 2018 12:00am October 20, 2018 11:52am busPIRone hydrochloride 30 mg oral tablet (20 sources) Start: 09-26-2023 End: 10-15-2023 busPIRone (BUSPAR) 30 mg tablet 30 mg twice a day 0 09/26/2023 10/15/2023 Discontinued (Therapy completed) Start: 09-26-2023 take 30 mg by mouth twice lora y Buspirone Active 30 MG PO Twice daily September 26, 2023 12:00am Start: 06-04-2022 take 1 tablet by lita th in the morning busPIRone (BUSPAR) 30 mg tablet Take 1 tablet (30 mg total) by mouth in the morning and 1 tablet (30 mg total) before bedtime. 30 mg in AM and 15 mg hs. 0 06/04/2022 Active Start: 11-20-2021 take 1 tablet by lita th twice daily Buspirone Active 1 TAB PO TWICE A DAY November 20, 2021 3:25pm Start: 11-06-2018 End: 09-26-2023 take 20 mg by mouth three times daily Buspirone Discontinued 20 MG PO Three times daily 270 November 29, 2018 8:10am September 26, 2023 6:45pm Start: 10-20-2018 End: 11-06-2018 take 15 mg by mouth three times daily Buspirone Discontinued 15 MG PO Three times daily October 24, 2018 10:35am November 06, 2018 2:29pm take 1 tablet by lita th twice daily busPIRone (Buspar) 10 mg tablet Take 1 tablet (10 mg) by mouth 2 times a day. Active take 2 tablets by mo uth three times daily busPIRone (BUSPAR) 10 mg tablet Take 20 mg by mouth three times daily. Active take 1 tablet by lita th three times daily busPIRone (BUSPAR) 10 MG tablet Take 1 (one) tablet (10 mg total) by mouth 3 (three) times a day . 0 Active BuSpar Active chlorthalidone 25 mg oral tablet (15 sources) Thiazide-like Diuretic Start: 06-14-2022 take 1 tablet by mouth once daily as needed Chlorthalidone 25 MG Oral Tablet TAKE 1 TABLET Daily prn Quantity: 90 Refills: 3 Ordered: 15-Sep-2022 DO Start : 14-Jun-2022 Active Start: 11-20-2021 take 1 tablet by lita th once daily Chlorthalidone Active 1 TAB PO DAILY November 20, 2021 3:25pm Start: 10-20-2018 End: 10-24-2018 take 50 mg by mouth once daily Chlorthalidone Disconti nued 50 MG PO Daily October 20, 2018 12:00am October 24, 2018 10:28am Start: 08-15-2018 End: 10-20-2018 take 25 mg by mouth once daily Chlorthalidone Disconti nued 25 MG PO Daily October 15, 2018 12:00am October 20, 2018 11:51am clomiPRAMINE hydrochloride 50 mg oral capsule (9 sources) Tricyclic Antidepressant Start: 11-29-2018 End: 09-26-2023 take 100 mg by mouth once daily at bedtime Clomipramine Discontinued 100 MG PO Daily at bedtime 60 November 28, 2018 11:00pm September 26, 2023 6:38pm Start: 11-06-2018 End: 11-22-2018 take 150 mg by mouth once daily at bedtime Clomipramine Discontinued 150 MG PO Daily at bedtime 42 14 November 06, 2018 12:00am November 22, 2018 6:30pm Start: 10-14-2018 End: 10-20-2018 take 25 mg by mouth twice daily Clomipramine Discontin ued 25 MG PO Twice daily October 14, 2018 12:00am October 20, 2018 11:52am diphenhydrAMINE hydrochloride 25 mg oral capsule (3 sources) Histamine-1 Receptor Antagonist Start: 10-24-2018 End: 11-22-2018 take 50 mg by mouth at bedtime Diphenhydramine Hcl Discontinued 50 MG PO Bedtime 0 October 24, 2018 12:00am November 22, 2018 6:30pm docusate sodium 50 mg / sennosides, fci 8.6 mg oral tablet (4 sources) Start: 09-26-2023 End: 10-15-2023 take 2 tablets by mouth in the morning sennosides-docusate sodium (SENOKOT-S) 8.6-50 mg Take 2 tablets by mouth in the morning and 2 tablets before bedtime. 0 09/26/2023 10/15/2023 Discontinued (Therapy completed) Start: 10-24-2018 End: 11-22-2018 take 1 tablet by mouth twice daily Sennosides-Docusate Sodium (Dok Plus) 8.6-50 mg Tablet Discontinued 1 TAB PO Twice daily 0 October 24, 2018 12:00am November 22, 2018 6:30pm Fish Oil 1000 MG Oral Capsule Delayed Release (1 source) Start: 04-26-2023 take 2 capsules by mouth once daily Fish Oil 1000 MG Oral Capsule Delayed Release TAKE 2 CAPSULE Daily Quantity: 180 Refills: 3 Ordered: 26-Apr-2023 Charan Bautista MD Start : 26-Apr-2023 Active fluvoxaMINE maleate 50 mg oral tablet (6 sources) Serotonin Reuptake Inhibitor Start: 10-20-2018 End: 10-24-2018 take 100 mg by mouth twice daily Fluvoxamine Discontinued 100 MG PO Twice daily October 20, 2018 12:00am October 24, 2018 10:29am Start: 10-14-2018 End: 10-20-2018 take 50 mg by mouth twice daily Fluvoxamine Discontinued 50 MG PO Twice daily October 14, 2018 12:00am October 20, 2018 11:51am furosemide 40 mg oral tablet (4 sources) Loop Diuretic Start: 09-15-2023 End: 10-15-2023 take 1 tablet by mouth once daily furosemide (LASIX) 40 mg tablet Indications: Chronic diastolic CHF (congestive heart failure) ([facility]) Take 1 tablet (40 mg total) by mouth daily. 7 tablet 1 09/15/2023 10/15/2023 Discontinued (Therapy completed) gabapentin 300 mg oral capsule (2 sources) Anti-epileptic Agent Start: 11-01-2023 End: 12-01-2023 take 1 capsule by mouth three times daily gabapentin (NEURONTIN) 300 mg capsule Indications: Lumbar pain Take 1 capsule (300 mg total) by mouth 3 (three) times a day for 30 days. 90 capsule 3 11/01/2023 11/15/2023 Discontinued (Therapy completed) 250 ml heparin sodium, porcine 100 unt/ml injection (10 sources) Unfractionated Heparin, Anti-coagulant Start: 10-06-2023 End: 10-06-2023 inject 5000 [IU] by subcutaneous injection every eight hours Heparin (Porcine) Discontinued 5000 UNIT SUBCUT Every 8 hours 0 October 06, 2023 12:00am October 06, 2023 1:56pm Start: 10-06-2023 End: 10-06-2023 take 4000 [IU] intravenously once Heparin (Porcine) Di scontinued 4000 UNIT IV-PUSH Once 0 October 06, 2023 12:00am October 06, 2023 1:55pm Start: 10-06-2023 End: 10-06-2023 Heparin(Porcine) In 0.45% Na cl Discontinued [id number] UNIT IV .[id number] 0 October 06, 2023 12:00am October 06, 2023 1:55pm labetalol hydrochloride 200 mg oral tablet (8 sources) beta-Adrenergic Shayne Start: 09-22-2022 take 1 tablet by mouth once daily Labetalol HCl - 200 MG Oral Tablet TAKE 1 TABLET EVERY 12 HOURS DAILY. Quantity: 0 Refills: 0 Ordered: 22-Sep-2022 DO Start : 22-Sep-2022 Active Start: 11-20-2021 take 1 tablet by lita th twice daily Labetalol Active 1 TAB PO TWICE A DAY November 20, 2021 3:25pm take 1 tablet by lita th twice daily labetalol (TRANDATE) 200 mg tablet Take 200 mg by mouth twice daily. Active Labetalol HCl Ac tive lurasidone hydrochloride 40 mg oral tablet (9 sources) Atypical Antipsychotic Start: 11-22-2018 End: 11-29-2018 Lurasidone (Latuda) 40 mg tablet Discontinued 20 MG PO Daily at 1700 November 21, 2018 11:00pm November 29, 2018 8:07am Daily with food at 1700 for one week, then discontinue. Start: 10-20-2018 End: 11-06-2018 take 1 tablet by mouth once daily Lurasidone (Latuda) 40 mg Tablet Discontinued 100 MG PO Daily with supper October 20, 2018 12:00am November 06, 2018 2:31pm Start: 10-20-2017 End: 10-20-2018 take 80 mg by mouth at bedtime Lurasidone Discontinued 80 MG PO Bedtime October 20, 2017 12:00am October 20, 2018 11:51am melatonin 5 mg oral tablet (20 sources) Start: 10-06-2023 End: 10-06-2023 take 5 mg by mouth once daily at bedtime Melatonin Discontinued 5 MG PO Daily at bedtime 0 October 06, 2023 12:00am October 06, 2023 2:10pm Start: 09-26-2023 End: 10-06-2023 take 6 mg by mouth at bedtime Melatonin Discontinued 6 MG PO Bedtime September 26, 2023 12:00am October 06, 2023 11:25am Start: 12-07-2022 take 2 tablets by mo uth once daily as needed, then take 1-2 tablets by mouth once daily as needed melatonin (CIRCADIN) tablet Take 2 tablets (6 mg total) by mouth nightly as needed. 1-2 tabs as needed nightly 12/07/2022 Active Start: 12-07-2022 take 1 tablet by lita th once daily as needed, then take 1-2 tablets by mouth once daily as needed melatonin (CIRCADIN) tablet Take 1 tablet (3 mg total) by mouth nightly as needed. 1-2 tabs as needed nightly 0 12/07/2022 Active take 2 capsules by m outh once daily at bedtime melatonin 3 mg capsule Take 2 capsules by mouth once daily at bedtime. Active Melatonin 3 MG O ral Tablet TAKE DIRECTED. Quantity: 0 Refills: 0 Ordered: 15-Mar-2023 DO Active mirtazapine 15 mg oral tablet (3 sources) Start: 09-11-2017 End: 08-15-2018 take 15 mg by mouth once daily at bedtime Mirtazapine Discontinued 15 MG PO Daily at bedtime September 11, 2017 12:00am August 15, 2018 2:28pm 2 ml naloxone hydrochloride 1 mg/ml prefilled syringe (4 sources) Opioid Antagonist Start: 10-06-2023 End: 10-06-2023 Naloxone Discontinued 2 MG IV-PUSH Q2M 0 October 06, 2023 12:00am October 06, 2023 2:11pm Start: 09-26-2023 End: 10-06-2023 Naloxone Discontinued 1 SPRA Y INTRANASAL Q3M September 26, 2023 12:00am October 06, 2023 11:25am nebivolol 20 mg oral tablet (6 sources) Start: 08-15-2018 End: 10-14-2018 take 20 mg by mouth once daily Nebivolol Discontinued 20 MG PO Daily August 15, 2018 12:00am October 14, 2018 12:11pm Start: 09-11-2017 End: 10-20-2017 take 2 tablets by mouth once daily Nebivolol (Bystolic) 10 mg Tablet Discontinued 20 MG PO Daily September 11, 2017 12:00am October 20, 2017 5:04pm NIFEdipine 30 mg osmotic 24 hr extended release oral tablet (6 sources) Dihydropyridine Calcium Channel Shayne Start: 09-17-2017 End: 08-15-2018 take 30 mg by mouth twice daily Nifedipine Discontinued 30 MG PO Twice daily 60 September 17, 2017 12:00am August 15, 2018 2:28pm Start: 09-11-2017 End: 09-17-2017 take 30 mg by mouth once daily Nifedipine Discontinued 30 MG PO Daily September 11, 2017 12:00am September 17, 2017 10:36am OLANZapine 5 mg oral tablet (6 sources) Atypical Antipsychotic Start: 11-29-2018 End: 09-26-2023 take 5 mg by mouth every six hours Olanzapine Discontinued 5 MG PO Q6H November 28, 2018 11:00pm September 26, 2023 6:38pm Start: 11-06-2018 End: 11-22-2018 take 5 mg by mouth twice daily Olanzapine Discontinued 5 MG PO Twice daily November 06, 2018 12:00am November 22, 2018 6:30pm olmesartan medoxomil 40 mg oral tablet (6 sources) Angiotensin 2 Receptor Shayne Start: 10-20-2018 End: 11-22-2018 take 40 mg by mouth once daily Olmesartan Discontinued 40 MG PO Daily October 20, 2018 12:00am November 22, 2018 6:30pm Start: 08-15-2018 End: 10-14-2018 take 1 tablet by mouth once daily Olmesartan (Benicar) 40 mg Tablet Discontinued 40 MG PO Daily August 15, 2018 12:00am October 14, 2018 12:12pm omeprazole 20 mg delayed release oral capsule (3 sources) Proton Pump Inhibitor Start: 10-24-2018 End: 11-22-2018 take 40 mg by mouth once daily Omeprazole Discontinued 40 MG PO Daily October 24, 2018 12:00am November 22, 2018 6:30pm ondansetron 4 mg disintegrating oral tablet (5 sources) Serotonin-3 Receptor Antagonist Start: 10-06-2023 End: 10-09-2023 take 4 mg by mouth every eight hours Ondansetron Discontinued 4 MG PO Every 8 hours 0 October 06, 2023 12:00am October 09, 2023 1:51pm Start: 10-24-2018 End: 11-06-2018 Ondansetron Hcl (Zofran) 4 m g tablet Discontinued 4 MG PO 2-3 TIMES PER DAY October 24, 2018 12:00am November 06, 2018 2:52pm oxyCODONE hydrochloride 5 mg oral tablet (5 sources) Opioid Agonist Start: 09-26-2023 End: 10-15-2023 oxyCODONE (ROXICODONE) 5 mg immediate release tablet Indications: Cauda equina compression (CMS-HCC) Take 1-2 tablets (5-10 mg total) by mouth every 6 (six) hours as needed for pain (10mg for severe pain, 5mg for moderate pain). Max Daily Amount: 40 mg 24 tablet 0 09/26/2023 10/15/2023 Discontinued (Therapy completed) Start: 09-26-2023 End: 10-06-2023 take 5 mg by mouth every six hours Oxycodone Discontinued 5 MG PO Q6H September 26, 2023 12:00am October 06, 2023 2:10pm Start: 09-26-2023 End: 10-06-2023 take 10 mg by mouth every six hours Oxycodone Discontinued 10 MG PO Q6H September 26, 2023 12:00am October 06, 2023 11:25am Ozempic (1 MG/DOSE) 4 MG/3ML Subcutaneous Solution Pen-injector (2 sources) Start: 06-27-2022 inject 1 mg by subcutaneous injection every week Ozempic (1 MG/DOSE) 4 MG/3ML Subcutaneous Solution Pen-injector inject as directed once weekly Quantity: 0 Refills: 0 Ordered: 19-Sep-2022 DO Start : 27-Jun-2022 Active polyethylene glycol 3350 [id number] mg powder for oral solution (16 sources) Osmotic Laxative Start: 09-26-2023 End: 06-10-2024 polyethylene glycol (GLYCOLAX) 17 gram packet Take 17 g by mouth in the morning. 09/26/2023 06/10/2024 Discontinued (Therapy completed) propranolol hydrochloride 20 mg oral tablet (6 sources) beta-Adrenergic Shayne Start: 11-22-2018 End: 09-26-2023 take 20 mg by mouth twice daily Propranolol Discontinued 20 MG PO Twice daily 60 November 29, 2018 8:10am September 26, 2023 6:39pm rosuvastatin calcium 5 mg oral tablet (2 sources) HMG-CoA Reductase Inhibitor Start: 03-15-2023 take 1 tablet by mouth once daily Rosuvastatin Calcium 5 MG Oral Tablet TAKE 1 TABLET DAILY. Quantity: 90 Refills: 3 Ordered: 15-Mar-2023 Charan Bautista MD Start : 15-Mar-2023 Active restart semaglutide (OZEMPIC) 0.25 mg or 0.5 mg (2 mg/3 mL) pen injector (2 sources) Start: 12-27-2023 End: 06-10-2024 semaglutide (OZEMPIC) 0.25 mg or 0.5 mg (2 mg/3 mL) pen injector Indications: Type 2 diabetes mellitus with diabetic peripheral angiopathy without gangrene, with long-term current use of insulin ([facility]) Inject 0.5 mg under the skin every 7 days. 0.5 mg subQ weekly for 4 weeks then increase to 1 mg weekly for 4 weeks, then increase to 2 mg weekly. 3 mL 12/27/2023 06/10/2024 Discontinued (Duplicate Listing) Start: 12-27-2023 semaglutide (O ZEMPIC) 0.25 mg or 0.5 mg (2 mg/3 mL) pen injector Indications: Type 2 diabetes mellitus with diabetic peripheral angiopathy without gangrene, with long-term current use of insulin ([facility]) Inject 0.5 mg under the skin every 7 days. 0.5 mg subQ weekly for 4 weeks then increase to 1 mg weekly for 4 weeks, then increase to 2 mg weekly. 3 mL 12/27/2023 Active Sennosides (Senna Laxative) 8.6 mg Tablet (2 sources) Start: 10-06-2023 End: 10-09-2023 take 1 tablet by mouth once daily Sennosides (Senna Laxative) 8.6 mg Tablet Discontinued 8.6 MG PO DAILY@12 October 06, 2023 12:00am October 09, 2023 4:36pm Start: 10-06-2023 take 1 tablet by lita th once daily Sennosides (Senna Laxative) 8.6 mg Tablet Active 8.6 MG PO DAILY@12 0 October 06, 2023 12:00am sertraline 50 mg oral tablet (3 sources) Serotonin Reuptake Inhibitor Start: 09-17-2017 End: 08-15-2018 take 50 mg by mouth once daily in the morning Sertraline Discontinued 50 MG PO Every morning September 17, 2017 12:00am August 15, 2018 2:29pm Sodium Chloride 0.9 % (Flush) (2 sources) Start: 10-06-2023 End: 10-06-2023 Sodium Chloride 0.9 % (Flush) (Bd Posiflush Normal Saline 0.9) Syringe Discontinued 10 ML IV-PUSH PRN 0 October 06, 2023 12:00am October 06, 2023 1:51pm Start: 10-06-2023 Sodium Chlorid e 0.9 % (Flush) (Bd Posiflush Normal Saline 0.9) Syringe Active 10 ML IV-PUSH PRN 0 October 06, 2023 12:00am Urea (Ure-Na) 15 gram Powder In Packet (3 sources) Start: 10-24-2018 End: 11-03-2018 Urea (Ure-Na) 15 gram Powder In Packet Discontinued 30 GM PO Daily 60 October 24, 2018 12:00am November 03, 2018 1:55pm Start: 10-24-2018 End: 11-03-2018 Urea (Ure-Na) 15 gram Powder In Packet Discontinued 30 GM PO Daily 60 October 24, 2018 1:00am November 03, 2018 2:55pm vortioxetine 20 mg oral tablet (15 sources) Start: 11-22-2018 End: 09-26-2023 take 20 mg by mouth once daily Vortioxetine Discontinued 20 MG PO Daily November 29, 2018 8:10am September 26, 2023 6:39pm Start: 10-24-2018 End: 11-22-2018 take 1 tablet by mouth once daily in the morning Vortioxetine (Trintellix) 10 mg Tablet Discontinued 10 MG PO Every morning October 24, 2018 12:00am November 22, 2018 6:30pm Start: 08-15-2018 End: 10-24-2018 take 1 tablet by mouth once daily Vortioxetine (Trintellix) 20 mg Tablet Discontinued 20 MG PO Daily October 20, 2018 12:00am October 24, 2018 10:29am zolpidem tartrate 12.5 mg extended release oral tablet (3 sources) gamma-Aminobutyric Acid-ergic Agonist Start: 10-14-2018 End: 10-20-2018 take 12.5 mg by mouth at bedtime Zolpidem Discontinued 12.5 MG PO Bedtime October 14, 2018 12:00am October 20, 2018 11:52am Problems Active Problems Problem Classification Problem Date Documented Da te Episodic/Chronic Acute myocardial infarction (20 sources) Acute myocardial infarction; Translations: [Acute myocardial infarction, unspecified] Onset: 4 10-06-2023 Chronic Anxiety disorders (20 sources) Generalized anxiety disorder; Translations: [Generalized anxiety disorder] Onset: 6 10-20-2018 Chronic Asthma (1 source) Unspecified asthma, uncomplicated; Translations: [UNSPECIFIED ASTHMA UNCOMPLICATED] Onset: 2 Chronic Biliary tract disease (9 sources) Biliary colic; Translations: [Calculus of bile duct without cholangitis or cholecystitis without obstruction] Onset: 4 11-23-2023 Episodic Cataract (20 sources) Nuclear senile cataract; Translations: [Age-related nuclear cataract, right eye] Onset: 6 06-01-2022 Chronic Complication of device; implant or graft (1 source) Atherosclerosis of coronary artery bypass graft(s) without angina pectoris; Translations: [Atherosclerosis of coronary artery bypass graft(s) without angina pectoris] Onset: 4 Chronic Congestive heart failure; nonhypertensive (20 sources) Chronic diastolic heart failure; Translations: [Chronic diastolic (congestive) heart failure] Onset: 3 02-05-2023 Chronic Coronary atherosclerosis and other heart disease (20 sources) Other forms of angina pectoris; Translations: [Atherosclerotic heart disease of [place] coronary artery without angina pectoris] Onset: 9 09-13-2017 Chronic Diabetes mellitus with complications (20 sources) Type 2 diabetes mellitus with peripheral angiopathy; Translations: [Type 2 diabetes mellitus with diabetic peripheral angiopathy without gangrene] Onset: 0 09-13-2023 Chronic Diabetes mellitus without complication (20 sources) Type 2 diabetes mellitus without complications; Translations: [Diabetes mellitus] Onset: 6 Resolved: 1 Chronic Diseases of white blood cells (3 sources) Leukocytosis; Translations: [Elevated white blood cell count, unspecified] 11-23-2018 Chronic Disorders of lipid metabolism (20 sources) Hyperlipidemia, unspecified; Translations: [Hyperlipidemia] Onset: 6 Resolved: 1 09-13-2017 Chronic Esophageal disorders (20 sources) Gastroesophageal reflux disease; Translations: [Esophageal reflux] Onset: 3 09-21-2023 Chronic Essential hypertension (20 sources) Essential (primary) hypertension; Translations: [Hypertensive disorder] Onset: 1 08-15-2018 Chronic Headache; including migraine (3 sources) Headache; Translations: [Headache] 10-20-2018 Episodic Hypertension with complications and secondary hypertension (3 sources) Malignant hypertension; Translations: [Hypertensive urgency] 10-20-2018 Chronic Miscellaneous mental health disorders (5 sources) Psychophysiologic insomnia; Translations: [Psychophysiologic insomnia] Chronic Mood disorders (20 sources) Major depressive disorder, single episode, severe without psychotic features; Translations: [Depressive disorder] Onset: 1 08-15-2018 Chronic 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; Translations: [ARNOLD-CHIARI W/O SPINA BIFIDA/HC] Onset: 1 Chronic Nutritional deficiencies (20 sources) Vitamin D deficiency; Translations: [Vitamin D deficiency, unspecified] Onset: 1 06-01-2022 Chronic Nutritional deficiencies (2 sources) Cobalamin deficiency; Translations: [Deficiency of other specified B group vitamins] Onset: 4 06-10-2024 Episodic Osteoarthritis (20 sources) Osteoarthritis of right knee joint; Translations: [Unilateral primary osteoarthritis, right knee] Onset: 2 06-01-2022 Chronic Other connective tissue disease (20 sources) History of total knee arthroplasty; Translations: [Presence of right artificial knee joint] Onset: 0 06-01-2022 Chronic Other connective tissue disease (1 source) Disorder of rotator cuff; Translations: [Unspecified disorder of synovium and tendon, left shoulder] 11-15-2023 Episodic Other gastrointestinal disorders (1 source) Full incontinence of feces; Translations: [Full incontinence of feces] Onset: 4 Episodic Other gastrointestinal disorders (1 source) Incontinence of feces; Translations: [Full incontinence of feces] 06-10-2024 Episodic Other hereditary and degenerative nervous system conditions (4 sources) Mild cognitive impairment, so stated; Translations: [MILD COGNITIVE IMPAIRMENT SO STATED] Onset: 2 Chronic Other hereditary and degenerative nervous system conditions (19 sources) Impaired cognition; Translations: [Mild cognitive impairment, so stated] Onset: 1 06-01-2022 Chronic Other lower respiratory disease (1 source) Cough; Translations: [Cough, unspecified type] 01-04-2023 Episodic Other lower respiratory disease (1 source) Dyspnea on exertion; Translations: [Other forms of dyspnea] 12-02-2023 Episodic Other nervous system disorders (3 sources) Poor concentration; Translations: [Attention and concentration deficit] 10-20-2018 Chronic Other nervous system disorders (1 source) Other chronic pain; Translations: [Other chronic pain] Onset: 4 Chronic Other nervous system disorders (3 sources) Pseudodementia; Translations: [Other symptoms and signs involving cognitive functions and awareness] 11-24-2018 Episodic Other nervous system disorders (2 sources) Postoperative pain ; Translations: [Other acute postprocedural pain] 09-27-2023 Episodic Other nervous system disorders (2 sources) Numbness of lower limb ; Translations: [Anesthesia of skin] 11-06-2023 Episodic Other non-traumatic joint disorders (1 source) Other specific arthropathies, not elsewhere classified, right shoulder; Translations: [Other specific arthropathies, not elsewhere classified, right shoulder] Onset: 4 Chronic Other nutritional; endocrine; and metabolic disorders (2 sources) Obesity; Translations: [Obesity, unspecified] Chronic Other nutritional; endocrine; and metabolic disorders (20 sources) Obese class II; Translations: [Obesity, unspecified] Onset: 0 06-01-2022 Chronic Other nutritional; endocrine; and metabolic disorders (20 sources) Body mass index 30+ - obesity; Translations: [Obesity, unspecified] Onset: 3 09-21-2023 Chronic Other nutritional; endocrine; and metabolic disorders (2 sources) Obesity, unspecified; Translations: [Obesity, unspecified] Onset: 3 Chronic Phlebitis; thrombophlebitis and thromboembolism (4 sources) 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; Translations: [CHR EMB THROM UNS DV RT DIST LW EXT] Onset: 1 Chronic Pneumonia (except that caused by tuberculosis or sexually transmitted disease) (3 sources) Pneumonia; Translations: [Pneumonia, unspecified organism] 10-20-2018 Episodic Residual codes; unclassified (20 sources) Obstructive sleep apnea syndrome; Translations: [Obstructive sleep apnea (adult) (pediatric)] Onset: 2 06-01-2022 Chronic Residual codes; unclassified (1 source) Obstructive sleep apnea (adult) (pediatric) Chronic Residual codes; unclassified (2 sources) Sleep apnea; Translations: [Sleep apnea, unspecified] Onset: 9 04-01-2020 Chronic Residual codes; unclassified (3 sources) Amnesia; Translations: [Other amnesia] 11-24-2018 Episodic Residual codes; unclassified (3 sources) Edema; Translations: [Edema, unspecified] 11-23-2018 Episodic Residual codes; unclassified (3 sources) History of lumbar laminectomy; Translations: [Other specified postprocedural states] 09-27-2023 Episodic Residual codes; unclassified (2 sources) H/O: urinary disease; Translations: [Personal history of other specified conditions] 10-15-2023 Episodic Residual codes; unclassified (1 source) Bilateral lower limb edema; Translations: [Localized edema] 11-15-2023 Episodic Residual codes; unclassified (1 source) Cauda equina syndrome suspected; Translations: [Other general symptoms and signs] 06-10-2024 Episodic Residual codes; unclassified (1 source) Other general symptoms and signs; Translations: [Other general symptoms and signs] Onset: 4 Episodic Residual codes; unclassified (2 sources) Never smoked tobacco; Translations: [Other specified health status] Onset: 4 07-16-2024 Episodic Spondylosis; intervertebral disc disorders; other back problems (5 sources) Spondylosis without myelopathy or radiculopathy, cervical region; Translations: [Postlaminectomy syndrome, not elsewhere classified] Onset: 1 Chronic Suicide and intentional self-inflicted injury (3 sources) Suicidal thoughts; Translations: [Suicidal ideations] 09-11-2017 Episodic Thyroid disorders (1 source) Nontoxic single thyroid nodule; Translations: [NONTOXIC SINGLE THYROID NODULE] Onset: 1 Chronic Unclassified (4 sources) CONTACT W/AND (SUSP) EXPOS COVID-19; Translations: [CONTACT W/AND (SUSP) EXPOS COVID-19] Onset: 1 Unclassified (2 sources) COUGH, UNSPECIFIED; Translations: [COUGH, UNSPECIFIED] Onset: 1 Unclassified (1 source) Cough, unspecified; Translations: [Cough, unspecified] Onset: 3 Unclassified (3 sources) Low back pain, unspecified; Translations: [Low back pain, unspecified] Onset: 4 Unclassified (2 sources) Medical Screening Onset: 4 Unclassified (2 sources) New Patient Onset: 4 Unclassified (1 source) Medical Problem Onset: 4 Unclassified (1 source) neck/back pain, new fecal incontinence, back surgery in September 2023 Onset: 4 Unclassified (1 source) Post-op Onset: 4 Unclassified (1 source) right side Onset: 4 Past or Other Problems Problem Classification Problem Date Documented Da te Episodic/Chronic Abdominal pain (9 sources) Abdominal pain; Translations: [Unspecified abdominal pain] Onset: 11-15-2023 11-23-2018 Episodic Administrative/social admission (5 sources) Other reduced mobility; Translations: [Impaired mobility and activities of daily living] Onset: 09-26-2023 09-27-2023 Episodic Chronic obstructive pulmonary disease and bronchiectasis (1 source) Bronchitis, not specified as acute or chronic; Translations: [BRONCHITIS NOT SPEC ACUTE/CHRON] Onset: 06-27-2021 Episodic Coronary atherosclerosis and other heart disease (5 sources) Presence of aortocoronary bypass graft; Translations: [Personal history of surgery to heart and great vessels, presenting hazards to health] Onset: 09-17-2023 10-06-2023 Episodic Deficiency and other anemia (19 sources) Anemia; Translations: [Anemia, unspecified] Onset: 11-16-2022 Resolved: 06-06-2023 06-06-2023 Episodic Diabetes mellitus without complication (2 sources) Prediabetes; Translations: [Prediabetes] Onset: 06-28-2011 06-28-2011 Episodic Fever of unknown origin (1 source) Fever, unspecified; Translations: [FEVER UNSPECIFIED] Onset: 12-20-2021 Episodic Fluid and electrolyte disorders (8 sources) Hyponatremia; Translations: [Hypo-osmolality and hyponatremia] Onset: 10-10-2008 Resolved: 06-28-2011 10-20-2018 Episodic Genitourinary symptoms and ill-defined conditions (6 sources) Retention of urine, unspecified; Translations: [Retention of urine] Onset: 09-19-2023 02-06-2024 Episodic Malaise and fatigue (20 sources) Left hemiparesis; Translations: [Weakness] Onset: 06-28-2011 10-20-2018 Episodic Mood disorders (20 sources) Mood disorders; Translations: [Depression, unspecified] Onset: 09-11-2023 Resolved: 06-10-2024 09-11-2023 Nausea and vomiting (2 sources) Postoperative nausea and vomiting; Translations: [Nausea with vomiting, unspecified] Onset: 04-12-2020 Resolved: 04-13-2020 04-13-2020 Episodic Nonspecific chest pain (1 source) Chest pain, unspecified; Translations: [Chest pain, unspecified] Onset: 07-17-2017 Episodic Other aftercare (1 source) Other usp (current) drug therapy; Translations: [OTH ADVERTISING TEACHER CURRENT DRUG THERAPY] Onset: 12-20-2021 Episodic Other aftercare (7 sources) exterminator (current) use of insulin; Translations: [senior care (current) use of insulin] Onset: 07-18-2022 Episodic Other circulatory disease (2 sources) Low blood pressure; Translations: [Hypotension, unspecified] Onset: 10-10-2008 Resolved: 06-28-2011 06-28-2011 Episodic Other connective tissue disease (17 sources) Muscle weakness of limb; Translations: [Other symptoms and signs involving the musculoskeletal system] Onset: 09-20-2023 09-20-2023 Episodic Other connective tissue disease (1 source) Other symptoms and signs involving the musculoskeletal system; Translations: [Other symptoms and signs involving the musculoskeletal system] Onset: 09-20-2023 Episodic Other connective tissue disease (1 source) Unspecified rotator cuff tear or rupture of right shoulder, not specified as traumatic; Translations: [Unspecified rotator cuff tear or rupture of right shoulder, not specified as traumatic] Onset: 12-31-2023 Episodic Other connective tissue disease (1 source) Unspecified disorder of synovium and tendon, left shoulder; Translations: [Unspecified disorder of synovium and tendon, left shoulder] Onset: 11-15-2023 Episodic Other gastrointestinal disorders (20 sources) Constipation; Translations: [Constipation, unspecified] Onset: 10-15-2023 11-23-2018 Episodic Other gastrointestinal disorders (2 sources) Heartburn; Translations: [Heartburn] Onset: 11-07-2012 11-07-2012 Episodic Other gastrointestinal disorders (1 source) Constipation, unspecified; Translations: [Constipation, unspecified] Onset: 09-11-2023 Episodic Other inflammatory condition of skin (3 sources) Erythematous condition, unspecified; Translations: [ERYTHEMATOUS CONDITION UNSPECIFIED] Onset: 12-18-2021 Episodic Other injuries and conditions due to external causes (2 sources) Injury of rotator cuff; Translations: [Unspecified injury of muscle(s) and tendon(s) of the rotator cuff of unspecified shoulder, initial encounter] Onset: 02-14-2013 02-14-2013 Episodic Other lower respiratory disease (2 sources) Other forms of dyspnea; Translations: [Other forms of dyspnea] Onset: 11-15-2023 Episodic Other lower respiratory disease (2 sources) Chronic cough; Translations: [Chronic cough] Onset: 11-07-2012 11-07-2012 Episodic Other lower respiratory disease (2 sources) Dyspnea; Translations: [Dyspnea, unspecified] Onset: 08-01-2016 08-01-2016 Episodic Other nervous system disorders (19 sources) Sensory symptoms; Translations: [Paresthesia of skin] Onset: 11-16-2022 11-16-2022 Episodic Other nervous system disorders (3 sources) Other acute postprocedural pain; Translations: [Other acute postoperative pain] Onset: 09-26-2023 09-26-2023 Episodic Other nervous system disorders (2 sources) Anesthesia of skin; Translations: [Anesthesia of skin] Onset: 11-01-2023 Episodic Other skin disorders (4 sources) Localized swelling, mass and lump, right lower limb; Translations: [LOC SWELL MASS LUMP RT LOWER LIMB] Onset: 12-19-2021 Episodic Other skin disorders (2 sources) Skin tag; Translations: [Other hypertrophic disorders of the skin] Onset: 01-29-2015 01-29-2015 Episodic Other upper respiratory disease (20 sources) Granuloma of vocal cords; Translations: [Other diseases of vocal cords] Onset: 11-07-2012 06-01-2022 Episodic Paralysis (20 sources) Compression of cauda equina; Translations: [Cauda equina syndrome] Onset: 09-20-2023 Resolved: 09-26-2023 09-26-2023 Chronic Phlebitis; thrombophlebitis and thromboembolism (1 source) Personal history of other venous thrombosis and embolism; Translations: [PERS HX OTH VENOUS THROMBOSIS AND EMBO] Onset: 06-27-2021 Episodic Residual codes; unclassified (3 sources) Other specified postprocedural states; Translations: [Other postprocedural status] Onset: 09-26-2023 09-26-2023 Episodic Residual codes; unclassified (2 sources) Localized edema; Translations: [Localized edema] Onset: 11-15-2023 Episodic Residual codes; unclassified (1 source) Altered mental status, unspecified; Translations: [Altered mental status, unspecified] Onset: 09-19-2023 Episodic Residual codes; unclassified (2 sources) Personal history of other specified conditions; Translations: [Personal history of other specified conditions] Onset: 11-26-2023 Episodic Residual codes; unclassified (2 sources) Family history of ischemic heart disease; Translations: [Family history of ischemic heart disease and other diseases of the circulatory system] Onset: 06-28-2011 06-28-2011 Episodic Residual codes; unclassified (1 source) Other specified health status; Translations: [Other specified health status] Onset: 09-26-2023 Episodic Retinal detachments; defects; vascular occlusion; and retinopathy (19 sources) Retinal detachment; Translations: [Serous retinal detachment, unspecified eye] Onset: 06-01-2022 06-01-2022 Episodic Skin and subcutaneous tissue infections (1 source) Cellulitis of right lower limb; Translations: [CELLULITIS OF RIGHT LOWER LIMB] Onset: 12-20-2021 Episodic Spondylosis; intervertebral disc disorders; other back problems (20 sources) Spinal stenosis of lumbar region; Translations: [Spinal stenosis, lumbar region without neurogenic claudication] Onset: 08-10-2023 09-19-2023 Episodic Sprains and strains (19 sources) Strain of muscle(s) and tendon(s) of the rotator cuff of right shoulder, initial encounter; Translations: [Rotator cuff (capsule) sprain] Onset: 10-03-2022 Resolved: 10-03-2022 10-03-2022 Episodic Unclassified (4 sources) Encounter for screening for malignant neoplasm of prostate; Translations: [Patient encounter status] Onset: 07-17-2017 11-15-2023 Episodic Unclassified (1 source) CONTACT W/AND (SUSP) EXPOS COVID-19; Translations: [CONTACT W/AND (SUSP) EXPOS COVID-19] Onset: 09-09-2021 Unclassified (2 sources) COUGH, UNSPECIFIED; Translations: [COUGH, UNSPECIFIED] Onset: 06-23-2021 Unclassified (2 sources) Never smoked tobacco; Translations: [Never a smoker] Unclassified (3 sources) Onset: 10-17-2023 Resolved: 07-16-2024 10-17-2023 Results Test Name Value Interpretation Reference Range Facility POCT Hemoglobin A1con 2023 HbA1c (Bld) [Mass fraction] 7.4 % Abnormal 4 - 7 % [facility] Interpretation and review of laboratory results Ab[facility] CBC AND AUTO DIFFon 06-10-20 ABSOLUTE BASOPHIL 0.0 X10E9/L Normal 0.0-0.2 [facility] Comment on above: Performed By: #### 3 0934-4 #### [facility] ([id number]) [address] [place] [address] ABSOLUTE NEUTROPHIL 6.0 X10E9/L Normal 1.5-6.6 [facility] Comment on above: Performed By: #### 3 0934-4 #### [facility] ([id number]) [address], [address] [place] [address] Basophils/100 WBC (Bld) 0.3 % Normal [facility] Comment on above: Performed By: #### 3 0934-4 #### [facility] ([id number]) [address], [address] [place] [address] Eosinophils (Bld) [#/Vol] 0.1 10*3/uL Normal 0.0-0.4 [facility] Comment on above: Performed By: #### 3 0934-4 #### [facility] ([id number]) [address], [address] [place] [address] Eosinophils/100 WBC (Bld) 1.6 % Normal [facility] Comment on above: Performed By: #### 3 0934-4 #### [facility] ([id number]) [address], [address] [place] [address] Erythrocyte distribution width (RBC) [Ratio] 15.6 % High 11.5-15.0 [facility] Comment on above: Performed By: #### 3 0934-4 #### [facility] ([id number]) [address], [address] [place] [address] Hematocrit (Bld) [Volume fraction] 41.4 % Normal 39-49 [facility] Comment on above: Performed By: #### 3 0934-4 #### [facility] ([id number]) [address], [address] [place] [address] Hemoglobin (Bld) [Mass/Vol] 14.1 g/dL Normal 13.0-17.0 [facility] Comment on above: Performed By: #### 3 0934-4 #### [facility] ([id number]) [address], [address] [place] [address] Lymphocytes (Bld) [#/Vol] 1.5 10*3/uL Normal 1.0-3.5 [facility] Comment on above: Performed By: #### 3 0934-4 #### [facility] ([id number]) [address], [address] [place] [address] Lymphocytes/100 WBC (Bld) 17.8 % Normal [facility] Comment on above: Performed By: #### 3 0934-4 #### [facility] ([id number]) [address], [address] [place] [address] MCH (RBC) [Entitic mass] 31.3 pg Normal 27-34 [facility] Comment on above: Performed By: #### 3 0934-4 #### [facility] ([id number]) [address], [address] [place] [address] MCHC (RBC) [Mass/Vol] 34.1 g/dL Normal 32-36 [facility] Comment on above: Performed By: #### 3 0934-4 #### [facility] ([id number]) [address], [address] [place] [address] MCV (RBC) [Entitic vol] 92 fL Normal 80-100 [facility] Comment on above: Performed By: #### 3 0934-4 #### [facility] ([id number]) [address], [address] [place] [address] Monocytes (Bld) [#/Vol] 0.7 10*3/uL Normal 0-0.9 [facility] Comment on above: Performed By: #### 3 0934-4 #### [facility] ([id number]) [address], [address] [place] [address] Monocytes/100 WBC (Bld) 8.8 % Normal [facility] Comment on above: Performed By: #### 3 0934-4 #### [facility] ([id number]) [address], [address] [place] [address] Neutrophils/100 WBC (Bld) 71.5 % Normal [facility] Comment on above: Performed By: #### 3 0934-4 #### [facility] ([id number]) [address], [address] [place] [address] Platelet mean volume (Bld) [Entitic vol] 7.1 fL Normal 7-12 [facility] Comment on above: Performed By: #### 3 0934-4 #### [facility] ([id number]) [address], [address] [place] [address] Platelets (Bld) [#/Vol] 244 10*3/uL Normal 150-450 [facility] Comment on above: Performed By: #### 3 0934-4 #### [facility] ([id number]) [address], [address] [place] [address] RBC COUNT 4.51 X10E12/L Normal 4.10-5.70 [facility] Comment on above: Performed By: #### 3 0934-4 #### [facility] ([id number]) [address], [address] [place] [address] WBC (Bld) [#/Vol] 8.4 10*3/uL Normal 4.0-11.0 [facility] Comment on above: Performed By: #### 3 0934-4 #### [facility] ([id number]) [address], [address] [place] [address] COMPREHENSIVE METABOLIC PANE Néstor 06-10-2024 Albumin [Mass/Vol] 4.1 g/dL Normal 3.2-5.3 [facility] Comment on above: Performed By: #### 3 0934-4 #### [facility] ([id number]) [address], [address] [place] [address] ALP [Catalytic activity/Vol] 46 U/L Normal 39-130 [facility] Comment on above: Performed By: #### 3 0934-4 #### [facility] ([id number]) [address] [place] [address] ALT [Catalytic activity/Vol] 23 U/L Normal 0-40 [facility] Comment on above: Performed By: #### 3 0934-4 #### [facility] ([id number]) [address], [address] [place] [address] Anion gap [Moles/Vol] 8 mmol/L Normal 5-15 [facility] Comment on above: Performed By: #### 3 0934-4 #### [facility] ([id number]) [address], [address] [place] [address] AST [Catalytic activity/Vol] 18 U/L Normal 0-41 [facility] Comment on above: Performed By: #### 3 0934-4 #### [facility] ([id number]) [address], [address] [place] [address] Bilirubin [Mass/Vol] 0.3 mg/dL Normal 0.3-1.2 [facility] Comment on above: Performed By: #### 3 0934-4 #### [facility] ([id number]) [address], [address] [place] [address] Calcium [Mass/Vol] 9.1 mg/dL Normal 8.5-10.5 [facility] Comment on above: Performed By: #### 3 0934-4 #### [facility] ([id number]) [address] [place] [address] Chloride [Moles/Vol] 106 mmol/L Normal 98-109 [facility] Comment on above: Performed By: #### 3 0934-4 #### [facility] ([id number]) [address], [address] [place] [address] CO2 [Moles/Vol] 26 mmol/L Normal 22-32 [facility] Comment on above: Performed By: #### 3 0934-4 #### [facility] ([id number]) [address], [address] [place] [address] Creatinine [Mass/Vol] 0.78 mg/dL Normal 0.60-1.30 [facility] Comment on above: Result Comment: METH OD TRACEABLE TO IDMS STANDARD Performed By: #### 3 0934-4 #### [facility] ([id number]) [address], [address] [place] [address] eGFR (CKD-EPI) NON-RACE DEPENDENT >90 Normal >59 [facility] Comment on above: Result Comment: Reported eGFR is based on the CKD-EPI 2020 equation that does not use a race coefficient. Performed By: #### 3 0934-4 #### [facility] ([id number]) [address], [address] [place] [address] Glucose [Mass/Vol] 142 mg/dL High 65-99 [facility] Comment on above: Performed By: #### 3 0934-4 #### [facility] ([id number]) [address], [address] [place] [address] Potassium [Moles/Vol] 4.1 mmol/L Normal 3.5-5.0 [facility] Comment on above: Performed By: #### 3 0934-4 #### [facility] ([id number]) [address], [address] [place] [address] Protein [Mass/Vol] 7.1 g/dL Normal 6.0-8.0 [facility] Comment on above: Performed By: #### 3 0934-4 #### [facility] ([id number]) [address] [place] [address] Sodium [Moles/Vol] 140 mmol/L Normal 134-146 [facility] Comment on above: Performed By: #### 3 0934-4 #### [facility] ([id number]) [address] [place] [address] Urea nitrogen [Mass/Vol] 20 mg/dL Normal 5-27 [facility] Comment on above: Performed By: #### 3 0934-4 #### [facility] ([id number]) [address], [address] [place] [address] Glucose Glucometer (BldC) [M ass/Vol]on 06-10-2024 Glucose [Mass/Vol] 108 mg/dL High 65-99 [facility] LIPASEon 06-10-2024 Lipase [Catalytic activity/Vol] 38 U/L Normal 11-82 [facility] Comment on above: Performed By: #### 3 0934-4 #### [facility] ([id number]) [address], [address] [place] [address] MR CERVICAL SPINE WO CONTon 06-10-2024 MR CERVICAL SPINE WO CONT MR CERVICAL SPINE WO CONT EXAM: MR CERVICAL SPINE WO CONT INDICATION: Neck pain, chronic COMPARISON: None TECHNIQUE/PROTOCOL: Multiplanar multisequence noncontrast cervical spine protocol MR performed. FINDINGS: Vertebral Bodies: Vertebral body heights and signal properties are normal. Desiccation of the intervertebral discs. Alignment: Normal. Extradural:No abnormal extradural fluid collections or masses. Spinal Cord: Normal in caliber and signal. C2-C3: Mild disc bulge. No significant spinal canal stenosis. Mild left neural foraminal stenosis predominantly due to facet and uncovertebral hypertrophy. C3-C4: Mild disc bulge. Mild ligamentum flavum thickening. No significant spinal canal stenosis. Severe right and moderate left foraminal stenosis secondary to uncovertebral facet arthropathy left greater than right. C4-C5: Minimal disc bulge. No significant spinal canal stenosis. Moderate bilateral foraminal stenosis, right greater than left predominantly due to facet and uncovertebral hypertrophy. C5-C6: No significant spinal canal stenosis. Mild bilateral foraminal stenosis, right greater than left predominantly due to uncovertebral facet arthropathy. C6-C7: Small central disc protrusion with indentation of the ventral thecal sac. No significant spinal canal stenosis. Neural foramina are patent. C7-T1: No spinal canal or foraminal stenosis. Paraspinal Soft Tissues: Unremarkable. Neck Soft Tissues: Unremarkable. IMPRESSION: No acute abnormalities of the cervical spine. Mild multilevel degenerative disc disease contributing to varying degrees of neural foraminal stenosis. Severe right neural foraminal stenosis at C3-C4. Moderate Foraminal stenosis is seen on the left at C3-C4 and bilaterally at C4-C5. Small central disc protrusion at C6-C7. Finalized by Corin Agee on 06/10/2024 6:04 PM Normal [facility] MR LUMBAR SPINE WO CONTon MR LUMBAR SPINE WO CONT MR LUMBAR SPINE WO CONT EXAM: MR LUMBAR SPINE WO CONT INDICATION: Low back pain, cauda equina syndrome suspected COMPARISON: None TECHNIQUE: Multiplanar multisequence noncontrast MR sequences through the lumbosacral spine. FINDINGS: Vertebral Bodies and intervertebral discs: Surgical changes related to bilateral transpedicular fusion of L4 and L5. Laminectomy changes. No evidence of complication. Susceptibility limits evaluation of the adjacent marrow signal. Remaining vertebral body heights and signal characteristics are normal.. Alignment: Normal. Extradural:There are no abnormal extradural fluid collections or masses. Conus: The conus terminates at approximately L1. Spinal Cord and Cauda Equina: The included caudal spinal cord appears normal. Normal appearance of the cauda equina. Spinal levels: T12-L1: No spinal canal or foraminal stenosis. L1-L2: No spinal canal or foraminal stenosis. L2-L3: Mild circumferential disc bulge. Mild facet arthropathy. No significant spinal canal stenosis. Minimal bilateral foraminal stenosis. L3-L4: Circumferential disc bulge. Bilateral facet arthropathy and ligamentum flavum thickening. Mild spinal canal stenosis. Moderate bilateral foraminal stenosis. L4-L5: Central disc protrusion with associated annular fissure. Superimposed circumferential disc bulge. Mild bilateral facet arthropathy. No significant spinal canal stenosis. Mild bilateral foraminal stenosis. L5-S1: Mild circumferential disc bulge. Bilateral facet arthropathy. No significant spinal canal stenosis. Mild bilateral foraminal stenosis. Soft Tissues: No acute abnormalities. Soft tissue changes related to instrumentation and likely mild denervation changes. Intraabdominal structures: The included retroperitoneal and pelvic structures appear normal. IMPRESSION: Surgical changes related to lumbar fusion without evidence of complication. Mild multilevel degenerative disc disease contributing to mild spinal canal stenosis at L3-L4. Mild multilevel foraminal stenosis from L3 to S1. Small Central disc protrusion at L4-L5. See above for detailed description of individual levels. Finalized by Corin Agee on 06/10/2024 6:11 PM Normal [facility] MR THORACIC SPINE WO CONTon 06-10-2024 MR THORACIC SPINE WO CONT MR THORACIC SPINE WO CONT EXAM: MRI THORACIC SPINE WITHOUT CONTRAST CLINICAL HISTORY: Chronic pain. Recent lumbar surgery with incontinence. TECHNIQUE: Routine unenhanced MRI of the thoracic spine was obtained. COMPARISONS: None. FINDINGS: There is no malalignment of the thoracic spine. There is no significant loss of the vertebral body or disc space heights. There are no bone marrow signal abnormalities. There are a few small nonaggressive degenerative endplate Schmorl's nodes within the thoracic spine. There are no signal abnormalities of the visualized thoracic spinal cord. Disc space levels: The disc space levels of the thoracic spine are unremarkable. No disc bulges/protrusions, canal stenosis, neural foraminal narrowing, or evidence for focal nerve impingement throughout the thoracic spine. IMPRESSION: Unremarkable MRI of the thoracic spine, as detailed above. There are no disc bulges/protrusions, canal stenosis, neural foraminal narrowing, or evidence for focal nerve impingement throughout the thoracic spine. Finalized by Calixto Ovalle MD on 06/10/2024 6:05 PM Normal [facility] URN MACROSCOPIC NURon 2023 BILIRUBIN FERNANDO Negative Normal NEG [facility] Comment on above: Performed By: #### 3 0934-4 #### [facility] ([id number]) [address], [address] [place] [address] BLOOD/HGB FERNANDO Negative Normal NEG [facility] Comment on above: Performed By: #### 3 0934-4 #### [facility] ([id number]) [address] [place] [address] GLUCOSE FERNANDO >=1000 Abnormal NEG [facility] Comment on above: Performed By: #### 3 0934-4 #### [facility] ([id number]) [address] [place] [address] KETONES FERNANDO Negative Normal NEG [facility] Comment on above: Performed By: #### 3 0934-4 #### [facility] ([id number]) [address] [place] [address] LEUKOCYTE ESTERASE FERNANDO Negative Normal NEG [facility] Comment on above: Performed By: #### 3 0934-4 #### [facility] ([id number]) [address] [place] [address] NITRITE FERNANDO Negative Normal NEG [facility] Comment on above: Performed By: #### 3 0934-4 #### [facility] ([id number]) [address] [place] [address] PH FERNANDO 6.5 Normal 5.0-8.5 [facility] Comment on above: Performed By: #### 3 0934-4 #### [facility] ([id number]) [address] [place] [address] PROTEIN FERNANDO Negative Normal NEG [facility] Comment on above: Performed By: #### 3 0934-4 #### [facility] ([id number]) [address] [place] [address] SPECIFIC GRAVITY FERNANDO 1.020 Normal 1.003-1.035 [facility] Comment on above: Performed By: #### 3 0934-4 #### [facility] ([id number]) [address] [place] [address] UROBILINOGEN FERNANDO 0.2 eu/dL Normal <1.1 [facility] Comment on above: Performed By: #### 3 0934-4 #### [facility] ([id number]) [address] [place] [address] Urine collection deviceon ER EXTRA URINES ER EXTRA URINE ORDER IN PROCESS Normal [facility] Coding Summaryon 03-25-2024 Coding Summary HTMLBase 64 JzqiknlrJNh7sIj+PGhlYWQ+ EC2FQIBdF10zfPYbyJ7bX0CQ TElOSywgQVBQTElOSyIgbmFt IE3nbTDwNICo IC8+LN0aWUQgIwmjfPBzw3G7 uZF3V44irx5nYAntjWZ7XXFs ElUvbejrc8pymZm8QHcnKdjg OyBt KZIeuU05KFA1fO17Ic26yVTr yZTlr5hcsZk0GyOkWORlJFL4 hPbxAAfmj4OxELKhY20szVYu c2U6 LYJbfDinmTGkIgKktCA2bH8m HDnbwsdej6sxuhnaVbe6ad70 oHFji8H2bPV5U4UvkdH6IZTa bGQg RqocqPMMpZ1znxavr5kwtyyr TjVnLCEjZAf9WVq3VPXcwFgt HsUxBL59DUP6SFWuxtTtE1Co LWFs aEemKnN4b9Z4Nu2FW0CXBjld M0FAVYEYFDysvDR+LD49os85 T8YyUrgkYnu9YWKvPBD9uDT0 aD0n DKQjTVngo2V2eUC0F9TvevXh po6ua9msYHKsHFcfQ33wdILv v1G9TPXlzQI5ASBbwJswAfWt aG93 Oyc+EZLsgEuie5EfRwolq2zi q0aauEn7QmnyKTTouwUwbWdz BZU6o6LhWf8fXFKeuBE1rRW2 aD0i NsUwAfE8OFvoQ281UxBiiVFr CjvfZ14tT5KcfFN+PHRyPjx0 PPWnkXmmQN8vF7DjUWCrprlr bGVm nRrdHB8vUHUsumchJQIcuM9u DDZrL8t2OkJiXkL9VChwB8Es MFCzqoitHj02lM5kXwHvDkT2 MGlu C4TcwuZ6GHYllBYxLXmeIUL8 D59zb2L5WIKbBPInSWJ9gAV1 cN4mhNdmkroazGYnyYokwcWn dGlj USnoRJwkC851OMPjqAzuWhCr ZGluZyBEYXRlOiAgMDcvMjMv MjAyNDwvdGQ+RCNdDNE2sHtv PSAn uSRqQForRv3krVfcyTonHF0s VHMixefbMTHzeT7aAIVqgHUn wDidVZ0jTTNhkyxfm140UjZy MHB0 OWPdqVNeN5ZpwX2aBgHxIVMt ZHHuC5CxoVKmMJdoV063XDlv QeB9QJKnuwGcJ0RsEMHcaTfd OiB0 n8C6Oe6Dy0HsrxffK7LadUMg QgUwQyuhXMz4X8WbDbggtOT+ IV84GUZuIC79OYj5XZC4iImo PSdi EOSyB7CwvA4oOpTePBAfITMq Oyc+PHRhYmxlIHdpZHRoPScx RGEeXfGeuLwsHF6aXt0nSUBz LWNv fSbpaXHfNiYar2btVHNbGWrx JP3dfFrwK7TtpNX1VCHol8d7 Gu16Q62lM5DaqYF+PGNvbCB3 aWR0 nH5pXmCxYnG1MJpmX445BbKm rVMnNdcpi3hdo4apaMg1ZfA2 JSWtwxKwiZxlZUC9m8WdGq85 Y29s IHdpZHRoPSIxNSUiIHZhbGln iq7ipQ5zDv1+WXOreGS9aYA2 dP5nSvObWcY8GXvqX323VsXm cCIv Lzqcb5xtm0fjvIg4LiUdQFUe coHevJytIHP9g8ZbOy40Z9Jw pFrlw0JeCmf3py73eDBpa2Y8 bGU9 T6DiKLRehkjbmZLrwBavFP0e KWAuyrwfNYPjlO2rCTFzU6n5 AzObYhW1VJfnY1PkjlE4WCLz bGQg UWMotOFMqS9scsnfr9lmdudi GrSiKVOnMSy1EIo2TYEwfUnv ZeKjNZO3NzP4HPE3yAVgoU3d bGln nnatgT8bYlu+HXN9oRHbpNSG TK8oOscxbIE+AVIxHXP2qHoz TQhpDMVcgM4vFTFqJ4o7WlTe LjA1 QCqeR7RwpaV1XNDlrWLaPPNz tGAVnP4nkaetg7zbkeevWcCk UFCxPGm0BWd4HHWuuJujOkOy ZWZ0 TdW0EXV2oLOaxD7guKtctlhp hY7rQcy+UzocuUupHVA5IWg5 F9RdFid6IVHdhPbfKV0hdNHu ZGlu Vp5ldDxczZlaRT7iOZZimgpm g665KeBna1qcIVAweGNbSKti JNG1S63lm5E7KXYyFZHwBLN1 dGV4 tV6hmWouedsmfXMtgOccmxEg gDysEBquAFheR833LVSekBpb ZoRkXCx2L2KfChu8EZPbaXos ZT0n rTEkYGvqKw7wnJuesGxyDG9c VGQrzwhwz405QtDup5vfOVFo sTDcEGvnAKD3A13hu7T0BZDf MDAw HKX1qGH8rN9upDjhxcpcmRQe xDptfiTdnWtsHGxqHZzbU876 IOHwqJilEjPwtSa4X2CiAhh3 ZCBz iEfzXJ5joGLbNEuwTv4nlGyo qAqxPV3sOMYdbfegs700XoMm m7zqVJGgwVByIDnsPJA9S92m b3I6 DXDyUESkMMA1nFK8nB7cyFrz bjogbGVmdDsgdmVydGljYWwt LHhhR205OZYsnOmbYaTmwXmb bnQg YXtvWNk2M2HyPbzhxTE+PC90 NPHsGA11uYQqqOYsf2hlfPe3 ZzWwFQUzQBS1wOsuUAjzj6Fi ZXIt N66zeMSbd0B4ORZaoUzuqDGm GgRzfZI6xB7oECenyeazc9oa ysclCkyqh7evqi90pV94B05a IHdp GIXbWKUoJGNdWUMhuTbugb4k hL5cLk3+IGEazBG3eWR9zH8n BQEzPbA6KMxyC982ZkKtgMSe Pjxj i8qiq3bdrCb6OpT7CDHqpmCc nUvdDCR5y5KfGt96T18pCCdv ABWiOZTfDNHhYKUlwVdpls2y dG9w Ii8+VEFwsKR8dHW5rC8fOaIs UtZ0YFedB368CvQhmKPqFspy L31iV1AnlJI+ECGiVjm3BADy dHls BH4uwAEeBUppQa4qZDB8YuIj CdZrGZsnY2HfYHRrgatrzziz iXJ4MINtFPBxmZ97Py2ykOih MTBw tVKXkE0ifjopm9wbubloKjDk OICmCMa8QWd7LRIoaVxlOgKp ODD5BxL9WXX7ySYmzF1hqJzf bjog vI9oT1YyZPBcyzcfZj28eP1n ByOaToT2HYgzQsj+RkVITCwg Ey0UIxYWYQ63IP07nMNfm0U8 bGU9 W2BvLQHqtoopciwhuIR0SECi TGSqaH63iHAsWBvlGx0an6N6 e652LJDaBESkfC02Dj7ywCkg MTBw nEHAfD2eobely4kykpkiIzOj RRFwZDb1YOn3DVYlqMoeGoNi WID4NmY6NEO9eHFbeG4moXkq bjog dI5qRsr+CWVmAaNkVYv2IQdx dGQ+MXNdTOR9jJwhRObeWMHu cT9xUFMsR6j3UeGaHkN7NFim O3Bh MUUptsmpDe35dR2rRoGcXbV3 VBfqJ4HwxdR2MKGpmXUjZDft YVV1J88sx0H0NNWwHQUdQFD1 dGV4 jR4wmFljvfdmwMBulOnokmYd kWxtNNowOQotT297WFMziRsj ZwG1ZBagZRKcKM69VA38oXXb c3R5 kTO8X3UgLDZjaidzcyvztYN9 BFDcCOGfrA51dLRoZGtfZx6b m6M2u630DDDrJBWyrU43Ds1y dDog HUYxrMMWqV7isrtkr0azdkln NqKjTEEjGKe8WMp3AYAuhRyq AmJyBYR3OzP8SBE1xRIbtE5s bGln lwxsfH3gPbj+TUFMRTwvdGQ+ SRKoHUZ3zObgEPewGCXegL1o CPHyR1v0NlTdYjC9KIhuW5Ug ZGRp ygriEs63eL7mZaLiGvY2JDwd C5SjfaF2QJEiwJXkYJkyKHL3 G36ik3E2CZPaBDZyDBY6vPV1 dC1h bGlnbjogbGVmdDsgdmVydGlj BJjyDPedM260CTIolOetVuNg GSPiQL4grUoqyEM+UO17bf29 L3Rh YqncZqc6JCZaSAU9nHH4hP7w TZVoMXpzi8J1lPT8G6CtumQr sy3tx1nvIBJsGZfzP53odUBh c2U7 UVIhrMS1INJzoAsbSjLhwL08 Oyc+KRHjcTuvc6CnVzmiu6yz b9bzmDi5YxGlNFXzxsOajRcw PSJ0 o7AyAp43D94zZEofCDSvCYFg JPZoIHZxmLmovq6lbA0zGn6+ EUKdkZK5hVW8wW3yHyFqZdP0 YWxp N977KvLdbQLzTyteu1vef7pb iTk6DrCzNGLrlxCbfAoeBQD2 e7OmPi79E4KeyJzle4PaSlz1 cj48 lMJxf9Z1aLF9O8RjQZEagffw bXLcaKzkSM6iMXLgncisGBQk lK6bSENyD0f7YrZkMtP7FTut O2Zv waJ8LLGqyPQiIFMefLXXuH4z auxkm6qwdeuaVgJwARDyCNc3 FWf1QKZikPesFaWqTWK7QyB6 ZXJ0 wREapC8bfDbnlrrksU3uInh+ PRc5v6rizWPtNJ6kjHO0LT37 UE86jRDhu5V8kTH0E6QpOGHm bmct tizgsOV7RWMpQDFfdL71Aa2s eMnvRj4eIAGtCXQ5APZevQPh X4IzqJ7bMaVsIYXpLGXnR8Ah eHQt NUhnQ567AXnmVjL4APAnkjPq Y4NlROLniBhkSsV2h0T4Uk8B TF88OW75HE14wIIrq2R4tWC6 J3Bh MHDzdrcnrahnnGZ4ESPiEPZg zP42Ag2gzEdoSw4wUXRcVJV8 KSUouQIdK0RmaQ7lBmQwZHJy MDAw V6WowTJpQEpfT576KXwuAsX7 AYIdwuWwE1WsXTNruAgxHvG3 h0Y5Fp2MKi73IQ70KL97oLKi c3R5 eDL5V4IaKJYarivzwhjqdRH3 UTSfJTXzsK48Bs1jvCzjJl8k GEHyGNY0PWShpJXbB6CuaN9l OiAj VUOiZAHvA1TxjKYqXBcnF794 SSmsHyB7ODJghfPuZ5AdWWMz nOihTfV5m5G8Wh9GAGolsto5 L3Rk PjwvdHI+ZO37KKNuZK94gWTm qYNzu9vgqGo5EhMvICCyTCU9 aXlzZVqal4ZdKBPcG50pjTJc c2U6 IGN (more content not included)... [facility] Consent Formson 03-17-2024 Consent Forms [id number] TIFF [facility] ED Note - Physicianon 2023 ED Note - Physician Patient: TOM KHAN Age: 68 years Sex: MALE : 1955 Associated Diagnoses: Diabetes Author: Skyler Balbuena DO Basic Information Time seen: Date & time 03/15/2024 23:00:00. Health Status Allergies: Allergic Reactions (Selected) No known allergies. Medications: (Selected) Documented Medications Documented DULoxetine 60 mg oral delayed release capsule: 0 Refill(s) Jardiance 25 mg oral tablet: 0 Refill(s) LORazepam 1 mg oral tablet: 0 Refill(s) Ozempic 8 mg/3 mL (2 mg dose) subcutaneous solution: 0 Refill(s) Toujeo Max SoloStar 300 units/mL subcutaneous solution: 0 Refill(s) atorvastatin 80 mg oral tablet: 0 Refill(s) carvedilol 12.5 mg oral tablet: 0 Refill(s) clopidogrel 75 mg oral tablet: 0 Refill(s) losartan 25 mg oral tablet: 0 Refill(s) spironolactone 25 mg oral tablet: 0 Refill(s) tamsulosin 0.4 mg oral capsule: 0 Refill(s) traZODone 100 mg oral tablet: 0 Refill(s). Past Medical/ Family/ Social History Medical history: No active or resolved past medical history items have been selected or recorded.. Surgical history: No active procedure history items have been selected or recorded.. Family history: No family history items have been selected or recorded.. Social history: Social & Psychosocial Habits Alcohol 03/15/2024 Alcohol Use: Never Substance Use 03/15/2024 Substance use: Never Tobacco 03/15/2024 Smoking tobacco use: Never tobacco user Electronic Cigarette/Vaping 03/15/2024 Electronic Cigarette Use: Never . Problem list: No qualifying data available . Reexamination/ Reevaluation Vital signs The patient was seen in room #6, and came in because his glucose was reading 47 at home, on his Dexcom. He states he felt okay, but then he states well maybe not so good, then mentioned that he had a cardiac event several months ago, and had stents placed, and he was not feeling so good but he was not really sure if he felt all that bad. When he got here to the emergency room we rechecked his glucose at the point of contact, and it was more than satisfactory. So we went through that routine again and again the sugar on his machine was at fault. So he was otherwise resting comfortably, his HEENT exam is normal is not tachypneic lungs are clear good eye contact heart rate and rhythm regular no murmur abdomen is soft he is neurologic exam symmetric he had no complaints, other than he might of felt a little fatigued, but denied chest pain or shortness of breath nausea vomiting sweats, and he said maybe we should check his EKG. So I said to be happy to do that over to order the test, and then he came over and said why it really I do not feel bad think just go home, and I will have to check on my Dexcom. He said he had adequate supplies at home. And so because he had said something about fatigue and not feeling so good, he signed AMA, but I told him he is welcome to come back anytime. He was no distress, and ambulatory at discharge. Impression and Plan Diagnosis Diabetes (TXJ73-CP E11.9, Discharge, Medical) Plan Condition: Stable. Disposition: Left against medical advice. [Electronically Signed on: 03/17/2024 06:00 EDT] SreeSkyler DO [Verified on: 03/17/2024 06:00 EDT] SreeSkyler DO [facility] ED Clinical Summaryon 2023 ED Clinical Summary [facility] - Emergency Department [address] [place], [place] [id number] ED Clinical Summary PERSON INFORMATION Name: TOM KHAN Age: 68 Years Sex: MALE : 1955 MRN: Acct#: Visit Reason: Hypoglycemia; LOW BLOOD SUGAR Arrival: 03/15/2024 21:36:27 Discharge: 03/15/2024 23:10:00 LOS: 000 01:34 Check In: 03/15/2024 21:36:27 Checkout:03/15/2024 23:10:00 Address: [address] [place] [address] [facility] [address] PCP: Provider, None PROVIDER INFORMATION Provider Role Assigned Unassigned Eli Estrada 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 Nurse 03/15/2024 22:04:36 DericstephSkyler ED Provider 03/15/2024 22:34:20 VITALS INFORMATION Vital Sign Triage Latest Temperature Tympanic Temperature Temporal Artery 36.4 DegC Pulse Rate 78 bpm 78 bpm O2 Sat 95 % 95 % Respiratory Rate 16 br/min 16 br/min Blood Pressure /89 mmHg /89 mmHg MEDICAL INFORMATION Medications Given: Allergy Information: No known allergies PHYSICIAN DOCUMENTATION DISCHARGE INFORMATION: Discharge Disposition: Against Medical Advice Discharge Location: Home PATIENT EDUCATION INFORMATION Instructions: Follow-Up: DIAGNOSIS: Patient Understands: Yes - Patient/family/caregiver verbalizes understanding of instructions given Comment: [facility] ED Note-Nursingon 03-15-2024 ED Note-Nursing Patient tired of waiting. Wanted to leave AMA. Signed AMA paper and left. Did allow for one last finger stick blood sugar which was 144. [facility] ED Note-Nursing called. She was very abrupt. Advised she did not want any medications given to her until his med list was reviewed with her. was informed that patient is a/o x4 and can accept or decline medications for himself. She was asked for an updated med list and she could not provide one. She was informed that patients bs was 176 and then asked if he was going to be admitted.. She was advised this is not known. She apologized for being abrupt and said she may call back. [facility] ED Patient Education Noteon 03-15-2024 ED Patient Education Note Education Materials [facility] ED Patient Summaryon 024 ED Patient Summary [facility] - Emergency Department [address] [place], [place] [address] PATIENT DISCHARGE INSTRUCTIONS Patient Information Name: TOM KHAN Age: 68 Years Date of : 1955 Reason For Visit: Hypoglycemia; LOW BLOOD SUGAR Arrival Time: 03/15/2024 21:36:27 Primary Care Physician: Eloy, Jay Attending Physician: Skyler Balbuena DO Comment: Visit Diagnosis: Diagnoses This Visit Hypoglycemia ([id number]) The Pharmacy at [facility] is open Sunday through Sunday from 9A to 6P and Sunday and Sunday from 9A to 5P Prescription Information: If you have been given a prescription for narcotics, seek immediate medical attention if you have any difficulty breathing or any sudden status changes such as confusion and sleepiness. If you or anyone you know is experiencing suicidal thoughts, mental health, alcohol and/or drug addiction problems; contact the [facility] 26/03 Crisis Hotline -Text 8UNJU gr 148710. If you received any narcotics, sedation, or any other medication that causes drowsiness for the next 24 hours, unless otherwise directed: ? Do not drive a car. ? Do not operate machinery such as power tools, lawn mowers, drills, sewing machines, or stoves ? Avoid alcoholic beverages and drugs for allergies, nerves, or sleep ? Do not make important personal or business decisions or sign any legal documents Medication Information: The exam and treatment you received today in the [facility] Emergency Department were for an urgent problem and are not intended as complete care. It is important for you to follow up with a doctor, nurse practitioner, or physician?s commercial assistant for ongoing care. If your symptoms become worse or you do not improve as expected and you are unable to reach your usual health care provider, you should return to the Emergency Department, we are available 24 hours a day. For those patients who have received Radiology results, the interpretation of your X-ray as given to you by our Emergency Department physician is only a preliminary report. The Radiologist will review your films and if there is a change in the diagnosis you will be notified by phone. Please make sure you have provided a working phone number so we can reach you if necessary. In the event that you had a lab culture while you were a patient in the Emergency Department, you will be notified by phone if there is a need to change your antibiotic. Please make sure you have provided a working phone number so we can reach you if necessary. [facility] Emergency Department has provided you with a complete list of medications post discharge. Please inform your program attendant/provider of your visit and for further instruction on these medications. Any specific questions regarding your chronic medications and dosages should be discussed with your primary care physician(s) and/or pharmacist. Medications to Continue That Have Not Changed Other Medications atorvastatin (atorvastatin 80 mg oral tablet) carvedilol (carvedilol 12.5 mg oral tablet) clopidogrel (clopidogrel 75 mg oral tablet) DULoxetine (DULoxetine 60 mg oral delayed release capsule) empagliflozin (Jardiance 25 mg oral tablet) insulin glargine (Toujeo Max SoloStar 300 units/mL subcutaneous solution) LORazepam (LORazepam 1 mg oral tablet) losartan (losartan 25 mg oral tablet) semaglutide (Ozempic 8 mg/3 mL (2 mg dose) subcutaneous solution) spironolactone (spironolactone 25 mg oral tablet) tamsulosin (tamsulosin 0.4 mg oral capsule) traZODone (traZODone 100 mg oral tablet) Visit Information Allergies: Substance Reaction Symptoms Type Comments No known allergies Drug Vital Signs: Vitals and Measurements this Visit (last charted value for your 03/15/2024 visit) Vital Signs This Visit Temperature Temporal Artery: 36.4 DegC Peripheral Pulse Rate: 78 bpm Respiratory Rate: 16 br/min Systolic Blood Pressure: 182 mmHg Diastolic Blood Pressure: 89 mmHg SpO2: 95 % Oxygen Therapy: Room air Measurements This Visit Height/Length Measured: 180.34 cm Weight Measured: 107.05 kg Weight Dosin.050 kg Body Mass Index: 32.92 kg/m2 Problems List: Problem Onset Comments No Problems found Patient Education Viruses or Bacteria What?s got you sick? Antibiotics only treat bacterial infections. Viral illnesses cannot be treated with antibiotics. When an antibiotic is not prescribed, ask your healthcare professional for tips on how to relieve symptoms and feel better. Usual Cause Illness Viruses Bacteria Antibiotic Needed Cold/Runny Nose ? NO Bronchitis/Chest Cold (in otherwise healthy children and adults) ? NO Whooping Cough ? Yes Flu ? NO Strep Throat ? Yes Sore Throat (except strep) ? NO Fluid in the middle ear (otitis media with effusion) ? NO Urinary Tract Infection ? Yes Antibiotic (more content not included)... Normal [facility] POCT Glucose Levelon 024 Glucose [Mass/Vol] 144 mg/dL High 74-118 [facility] Comment on above: Result Comment: OPR_ ID=IN_LIST,TGC FLAG = False,Meter:[id number] Degree Clerk:[id number] Natalie Benitez Performed By: #### 4 [id number] #### [facility] (DEFAULT) [address] [place] [address] Glucose [Mass/Vol] 176 mg/dL High 74-118 [facility] Comment on above: Result Comment: OPR_ ID=IN_LIST,TGC FLAG = False,Meter:[id number] Degree Clerk:[id number] Charlotte Abarca Performed By: #### 4 [id number] #### [facility] (DEFAULT) [address] [place] [address] XR ABDOMEN AP 1 VWon 024 XR ABDOMEN AP 1 VW XR ABDOMEN AP 1 VW HISTORY: A 68-year-old male with the history of the symptomatic cholelithiasis. Check for the stool burden. TECHNIQUE: Supine abdomen: One view COMPARISON: No relevant prior studies are available for comparison. FINDINGS: The bowel gas pattern is nonobstructive. Moderate amount of feces is seen in the colon. Both kidneys are obscured by bowel gas shadows and fecal material. There are phleboliths in the pelvis bilaterally. There is no evidence of large soft tissue mass. There are degenerative changes in the thoracolumbar spine. There is a surgical spinal fusion at L4-L5 with postsurgical change. Osteoarthritic changes are seen in the hip joints. IMPRESSION: * Nonobstructive bowel gas pattern with moderate amount of feces. * Kidneys are obscured by bowel gas shadows and fecal material. 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 Spinal fusion of L4-L5. Finalized by Arturo Reed MD on 03/15/2024 9:49 AM Normal [facility] C peptide [Mass/Vol]on 12-10 C PEPTIDE 1.80 ng/mL Normal 0.81-3.85 [facility] Comment on above: Result Comment: NOTE Test Performed By: [facility] [address] [place] [address] Aquatic Biologist: Brandon Zapata III, M.D. CLIA #[id number] Performed By: #### 1 744-2, 1920-8, 84810-9, 9-1 #### [facility] ([id number]) [address] [place] [address] [address] [place] [address] NM HEPATOBILIARY SYS IMAGING W PHARMACOLOGIC AGENTon 12-06-2023 NM HEPATOBILIARY SYS IMAGING W PHARMACOLOGIC AGENT NM HEPATOBILIARY SYS IMAGING W PHARMACOLOGIC AGENT NM HEPATOBILIARY SYS IMAGING W PHARMACOLOGIC AGENT: 12/06/2023 6:37 AM Clinical:The right colic. Abdominal pain. EXAM: HIDA SCAN HIDA scan performed with IV administration of 5.0 mCi technetium 99m mebrofenin. There is prompt tracer uptake by liver and excretion into gallbladder and small bowel. After CCK administration, GB ejection fraction is 69% (normal > 17-30%). No symptoms reported with CCK administration. Impression: * Normal HIDA scan. Finalized by Vignesh Cormier MD on 12/06/2023 9:34 AM Normal [facility] Measure post void residualon 11-26-2023 Volume 102 [facility] POCT Urinalysis Auto, W/O Mi croscopyon 11-26-2023 External Poct Urine Blood Negative [facility] External Poct Urine Glucose 3+ [facility] External Poct Urine Ketones Negative [facility] External Poct Urine Leukocyte Esterase Negative [facility] External Poct Urine Nitrite Negative [facility] External Poct Urine Ph 6.0 [facility] External Poct Urine Protein Negative [facility] CBC AND AUTO DIFFon 11-16-19 ABSOLUTE BASOPHIL 0.0 X10E9/L Normal 0.0-0.2 [facility] Comment on above: Performed By: #### 1 744-2, 1920-04, , 2088-09 #### [facility] ([id number]) [address], [address] [place] [address] ABSOLUTE NEUTROPHIL 4.1 X10E9/L Normal 1.5-6.6 [facility] Comment on above: Performed By: #### 1 744-2, 1920-04, , 2088-09 #### [facility] ([id number]) [address], [address] [place] [address] Basophils/100 WBC (Bld) 0.6 % Normal [facility] Comment on above: Performed By: #### 1 744-2, 1920-04, , 2088-09 #### [facility] ([id number]) [address], [address] [place] [address] Eosinophils (Bld) [#/Vol] 0.3 10*3/uL Normal 0.0-0.4 [facility] Comment on above: Performed By: #### 1 744-2, 1920-04, , 2088-09 #### [facility] ([id number]) [address], [address] [place] [address] Eosinophils/100 WBC (Bld) 3.8 % Normal [facility] Comment on above: Performed By: #### 1 744-2, 1920-04, , 2088-09 #### [facility] ([id number]) [address], [facility] [address] [place] [address] Erythrocyte distribution width (RBC) [Ratio] 16.3 % High 11.5-15.0 [facility] Comment on above: Performed By: #### 1 744-2, 1920-04, , 2088-09 #### [facility] ([id number]) [address], [address] [place] [address] Hematocrit (Bld) [Volume fraction] 43.0 % Normal 39-49 [facility] Comment on above: Performed By: #### 1 744-2, 1920-04, , 2088-09 #### [facility] ([id number]) [address], [facility] [address] [place] [address] Hemoglobin (Bld) [Mass/Vol] 14.3 g/dL Normal 13.0-17.0 [facility] Comment on above: Performed By: #### 1 744-2, 1920-04, , 2088-09 #### [facility] ([id number]) [address], [address] [place] [address] Lymphocytes (Bld) [#/Vol] 1.6 10*3/uL Normal 1.0-3.5 [facility] Comment on above: Performed By: #### 1 744-2, 1920-04, , 2088-09 #### [facility] ([id number]) [address], [address] [place] [address] Lymphocytes/100 WBC (Bld) 24.1 % Normal [facility] Comment on above: Performed By: #### 1 744-2, 1920-04, , 2088-09 #### [facility] ([id number]) [address], [address] [place] [address] MCH (RBC) [Entitic mass] 30.2 pg Normal 27-34 [facility] Comment on above: Performed By: #### 1 744-2, 1920-04, , 2088-09 #### [facility] ([id number]) [address], [facility] [address] [place] [address] MCHC (RBC) [Mass/Vol] 33.4 g/dL Normal 32-36 [facility] Comment on above: Performed By: #### 1 744-2, 1920-04, , 2088-09 #### [facility] ([id number]) [address], [address] [place] [address] MCV (RBC) [Entitic vol] 90 fL Normal 80-100 [facility] Comment on above: Performed By: #### 1 744-2, 1920-04, , 2088-09 #### [facility] ([id number]) [address], [address] [place] [address] Monocytes (Bld) [#/Vol] 0.7 10*3/uL Normal 0-0.9 [facility] Comment on above: Performed By: #### 1 744-2, 1920-04, , 2088-09 #### [facility] ([id number]) [address], [address] [place] [address] Monocytes/100 WBC (Bld) 10.3 % Normal [facility] Comment on above: Performed By: #### 1 744-2, 1920-04, , 2088-09 #### [facility] ([id number]) [address], [address] [place] [address] Neutrophils/100 WBC (Bld) 61.2 % Normal [facility] Comment on above: Performed By: #### 1 744-2, 1920-04, , 2088-09 #### [facility] ([id number]) [address], [address] [place] [address] Platelet mean volume (Bld) [Entitic vol] 7.5 fL Normal 7-12 [facility] Comment on above: Performed By: #### 1 744-2, 1920-04, , 2088-09 #### [facility] ([id number]) [address], [address] [place] [address] Platelets (Bld) [#/Vol] 290 10*3/uL Normal 150-450 [facility] Comment on above: Performed By: #### 1 744-2, 1920-04, , 2088-09 #### [facility] ([id number]) [address], [facility] [address] [place] [address] RBC COUNT 4.75 X10E12/L Normal 4.10-5.70 [facility] Comment on above: Performed By: #### 1 744-2, 1920-04, , 2088-09 #### [facility] ([id number]) [address], [address] [place] [address] WBC (Bld) [#/Vol] 6.7 10*3/uL Normal 4.0-11.0 [facility] Comment on above: Performed By: #### 1 744-2, 1920-04, , 2088-09 #### [facility] ([id number]) [address], [address] [place] [address] CBC auto differentialon 11-01 Basophils (Bld) [#/Vol] 0.0 10*3/uL [facility] Basophils/100 WBC (Bld) 0.6 % [facility] Eosinophils (Bld) [#/Vol] 0.3 10*3/uL [facility] Eosinophils/100 WBC (Bld) 3.8 % [facility] Erythrocyte distribution width (RBC) [Ratio] 16.3 % High 11.5 - 15.0 % [facility] Hematocrit (Bld) [Volume fraction] 43.0 % 39 - 49 % [facility] Hemoglobin (Bld) [Mass/Vol] 14.3 g/dL 13.0 - 17.0 g/dL [facility] Interpretation and review of laboratory results Abnormal [facility] Lymphocytes (Bld) [#/Vol] 1.6 10*3/uL [facility] Lymphocytes/100 WBC (Bld) 24.1 % [facility] MCH (RBC) [Entitic mass] 30.2 pg 27 - 34 pg [facility] MCHC (RBC) [Mass/Vol] 33.4 g/dL 32 - 36 g/dL [facility] MCV (RBC) [Entitic vol] 90 fL 80 - 100 fL [facility] Monocytes (Bld) [#/Vol] 0.7 10*3/uL [facility] Monocytes/100 WBC (Bld) 10.3 % [facility] Neutrophils (Bld) [#/Vol] 4.1 10*3/uL [facility] Neutrophils/100 WBC (Bld) 61.2 % [facility] Platelet mean volume (Bld) [Entitic vol] 7.5 fL 7 - 12 fL [facility] Platelets (Bld) [#/Vol] 290 10*3/uL [facility] RBC (Bld) [#/Vol] 4.75 10*6/uL [facility] WBC corrected for nucl RBC Auto (Bld) [#/Vol] 6.7 [facility] COMPREHENSIVE METABOLIC PANE Néstor 11-16-2023 Albumin [Mass/Vol] 4.5 g/dL Normal 3.2-5.3 [facility] Comment on above: Performed By: #### 1 744-2, 1920-04, , 2088-09 #### [facility] ([id number]) [address], [address] [place] [address] ALP [Catalytic activity/Vol] 56 U/L Normal 39-130 [facility] Comment on above: Performed By: #### 1 744-2, 1920-04, , 2088-09 #### [facility] ([id number]) [address], [address] [place] [address] ALT [Catalytic activity/Vol] 38 U/L Normal 0-40 [facility] Comment on above: Performed By: #### 1 744-2, 1920-04, , 2088-09 #### [facility] ([id number]) [address], [address] [place] [address] Anion gap [Moles/Vol] 10 mmol/L Normal 5-15 [facility] Comment on above: Performed By: #### 1 744-2, 1920-04, , 2088-09 #### [facility] ([id number]) [address], [address] [place] [address] AST [Catalytic activity/Vol] 23 U/L Normal 0-41 [facility] Comment on above: Performed By: #### 1 744-2, 1920-04, , 2088-09 #### [facility] ([id number]) [address], [address] [place] [address] Bilirubin [Mass/Vol] 0.6 mg/dL Normal 0.3-1.2 [facility] Comment on above: Performed By: #### 1 744-2, 1920-04, , 2088-09 #### [facility] ([id number]) [address], [address] [place] [address] Calcium [Mass/Vol] 9.7 mg/dL Normal 8.5-10.5 [facility] Comment on above: Performed By: #### 1 744-2, 1920-04, , 2088-09 #### [facility] ([id number]) [address], [facility] [address] [place] [address] Chloride [Moles/Vol] 105 mmol/L Normal 98-109 [facility] Comment on above: Performed By: #### 1 744-2, 1920-04, , 2088-09 #### [facility] ([id number]) [address], [facility] [address] [place] [address] CO2 [Moles/Vol] 26 mmol/L Normal 22-32 [facility] Comment on above: Performed By: #### 1 744-2, 1920-04, , 2088-09 #### [facility] ([id number]) [address], [address] [place] [address] Creatinine [Mass/Vol] 0.85 mg/dL Normal 0.60-1.30 [facility] Comment on above: Result Comment: METH OD TRACEABLE TO IDMS STANDARD Performed By: #### 1 744-2, 1920-04, , 2088-09 #### [facility] ([id number]) [address], [address] [place] [address] eGFR (CKD-EPI) NON-RACE DEPENDENT >90 Normal >59 [facility] Comment on above: Result Comment: Reported eGFR is based on the CKD-EPI 2020 equation that does not use a race coefficient. Performed By: #### 1 744-2, 1920-04, , 2088-09 #### [facility] ([id number]) [address], [address] [place] [address] Glucose [Mass/Vol] 129 mg/dL High 65-99 [facility] Comment on above: Performed By: #### 1 744-2, 1920-04, , 2088-09 #### [facility] ([id number]) [address], [address] [place] [address] Potassium [Moles/Vol] 4.3 mmol/L Normal 3.5-5.0 [facility] Comment on above: Performed By: #### 1 744-2, 1920-04, , 2088-09 #### [facility] ([id number]) [address], [address] [place] [address] Protein [Mass/Vol] 7.8 g/dL Normal 6.0-8.0 [facility] Comment on above: Performed By: #### 1 744-2, 1920-04, , 2088-09 #### [facility] ([id number]) [address], [address] [place] [address] Sodium [Moles/Vol] 141 mmol/L Normal 134-146 [facility] Comment on above: Performed By: #### 1 744-2, 1920-04, , 2088-09 #### [facility] ([id number]) [address], [address] [place] [address] Urea nitrogen [Mass/Vol] 25 mg/dL Normal 5-27 [facility] Comment on above: Performed By: #### 1 744-2, 1920-04, , 2088-09 #### [facility] ([id number]) [address], [address] [place] [address] Comprehensive metabolic pane néstor 11-16-2023 Albumin [Mass/Vol] 4.5 g/dL 3.2 - 5.3 g/dL [facility] ALP [Catalytic activity/Vol] 56 U/L 39 - 130 U/L [facility] ALT No additional P-5'-P [Catalytic activity/Vol] 38 U/L 0 - 40 U/L [facility] Anion gap [Moles/Vol] 10 mmol/L 5 - 15 mmol/L [facility] AST [Catalytic activity/Vol] 23 U/L 0 - 41 U/L [facility] Bilirubin [Mass/Vol] 0.6 mg/dL 0.3 - 1.2 mg/dL [facility] Calcium [Mass/Vol] 9.7 mg/dL 8.5 - 10. 5 mg/dL [facility] Chloride [Moles/Vol] 105 mmol/L 98 - 109 mmol/L [facility] CO2 [Moles/Vol] 26 mmol/L 22 - 32 mmol/L [facility] Creatinine [Mass/Vol] 0.85 mg/dL 0.60 - 1.30 mg/dL [facility] Comment on above: METHOD TRACEABLE TO [facility] STANDARD eGFR (CKD-EPI)non-race dependent - PINF [facility] Comment on above: Reported eGFR is based on the CKD-EPI 2020 equation that does not use a race coefficient. Glucose [Mass/Vol] 129 mg/dL High 65 - 99 mg/dL [facility] Potassium [Moles/Vol] 4.3 mmol/L 3.5 - 5.0 mmol/L [facility] Protein [Mass/Vol] 7.8 g/dL 6.0 - 8.0 g/dL [facility] Sodium [Moles/Vol] 141 mmol/L 134 - 146 mmol/L [facility] Urea nitrogen [Mass/Vol] 25 mg/dL 5 - 27 mg/dL [facility] Lipid 1996 panelon 4 Cholesterol [Mass/Vol] 149 mg/dL Low 150 - 200 mg/dL [facility] Cholesterol in HDL [Mass/Vol] 45 mg/dL 39 - PINF mg/dL [facility] Comment on above: HDL <40 mg/dL - High Risk HDL > or = 40mg/dL- Desirable HDL >60 mg/dL - Negative Risk Cholesterol in LDL [Mass/Vol] 66 mg/dL NINF - 130 mg/dL [facility] Comment on above: LDL <100 mg/dL - Desirable LDL >160 mg/dL - High Risk Cholesterol in VLDL [Mass/Vol] 38 mg/dL High 0 - 30 mg/dL [facility] Cholesterol.total/ Cholesterol in HDL [Mass ratio] 3.3 {ratio} 1.0 - 5.0 [facility] Triglyceride [Mass/Vol] 192 mg/dL High 27 - 150 mg/dL [facility] Cholesterol [Mass/Vol] 149 mg/dL Low 150-200 [facility] Comment on above: Performed By: #### 1 744-2, 1920-04, , 2088-09 #### [facility] ([id number]) [address] [place] [address] Cholesterol in HDL [Mass/Vol] 45 mg/dL Normal >39 [facility] Comment on above: Result Comment: HDL <40 mg/dL - High Risk HDL > or = 40mg/dL- Desirable HDL >60 mg/dL - Negative Risk Performed By: #### 1 744-2, 1920-04, , 2088-09 #### [facility] ([id number]) [address], [address] [place] [address] Cholesterol in LDL [Mass/Vol] 66 mg/dL Normal <130 [facility] Comment on above: Result Comment: LDL <100 mg/dL - Desirable LDL >160 mg/dL - High Risk Performed By: #### 1 744-2, 1920-04, , 2088-09 #### [facility] ([id number]) [address], [address] [place] [address] Cholesterol in VLDL [Mass/Vol] 38 mg/dL High 0-30 [facility] Comment on above: Performed By: #### 1 744-2, 1920-04, , 2088-09 #### [facility] ([id number]) [address], [address] [place] [address] CHOLESTEROL:HDL 3.3 Normal 1.0-5.0 [facility] Comment on above: Performed By: #### 1 744-2, 1920-04, , 2088-09 #### [facility] ([id number]) [address], [address] [place] [address] Triglyceride [Mass/Vol] 192 mg/dL High 27-150 [facility] Comment on above: Performed By: #### 1 744-2, 1920-04, , 2088-09 #### [facility] ([id number]) [address], [address] [place] [address] Natriuretic peptide B [Mass/ Vol]on 11-16-2023 Natriuretic peptide B (Bld) [Mass/Vol] 37 pg/mL NINF - 100.0 pg/mL [facility] Natriuretic peptide B (Bld) [Mass/Vol] 37 pg/mL Normal <100.0 [facility] Comment on above: Performed By: #### 1 744-2, 1920-04, , 2088-09 #### [facility] ([id number]) [address], [address] [place] [address] No Panel Informationon 11-15 Interpretation and review of laboratory results Abnormal [facility] Prostate specific Ag [Mass/V ol]on 11-16-2023 [facility] PSA SCREEN 0.98 ng/mL Normal 0.00-4.00 [facility] Comment on above: Result Comment: The method used for this test is Roseline Aeluros DXI chemiluminescent immunoassay. Values obtained by different assay methods cannot be used interchangeably. Performed By: #### 1 744-2, 0-8, 45541-6, 2088-09 #### [facility] ([id number]) [address] [place] [address] Prostatic specific antigen s creenon 11-16-2023 Prostate specific Ag [Mass/Vol] 0.98 ng/mL 0.00 - 4.00 ng/mL [facility] Comment on above: The method used for this test is Roseline Aeluros DXI chemiluminescent immunoassay. Values obtained by different assay methods cannot be used interchangeably. TSH WITH REFLEXon 11-16-2023 TSH 1.35 uIU/mL Normal 0.49-4.67 [facility] Comment on above: Performed By: #### 1 744-2, 0-8, 67204-7, 2088-09 #### [facility] ([id number]) [address] [place] [address], [address] [place] [address] TSH with Reflexon 11-16-2023 TSH Qn 1.35 m[IU]/L [facility] US ABDOMEN LMTDon 11-16-2023 US ABDOMEN LMTD US ABDOMEN LMTD Clinical history: Right upper quadrant pain Findings: Multiplanar sonography was performed of the right upper quadrant. Comparison: None. Layering stones in dependent portion gallbladder. No abnormal wall thickness, pericholecystic fluid nor biliary tree dilatation. No free fluid hepatorenal fossa no right renal obstruction. Liver echotexture is increased. No perihepatic fluid. Portal vein patent. Impression: * Cholelithiasis. If there is concern regarding acute biliary tract obstruction, consider HIDA scan or MRCP.. * Hepatic steatosis. Finalized by Miguel A Ware MD on 11/16/2023 4:14 PM Normal [facility] US Abdomen limitedon 2 024 Clinical history: Ri ght upper quadrant pain Findings: Multiplanar sonography was performed of the right upper quadrant. Comparison: None. Layering stones in dependent portion gallbladder. No abnormal wall thickness, pericholecystic fluid nor biliary tree dilatation. No free fluid hepatorenal fossa no right renal obstruction. Liver echotexture is increased. No perihepatic fluid. Portal vein patent. Impression: * Cholelithiasis. If there is concern regarding acute biliary tract obstruction, consider HIDA scan or MRCP.. * Hepatic steatosis. Finalized by Miguel A Ware MD on 11/16/2023 4:14 PM [facility] Miguel A Ware MD - 11/16/2023 Clinical history: Right upper quadrant pain Findings: Multiplanar sonography was performed of the right upper quadrant. Comparison: None. Layering stones in dependent portion gallbladder. No abnormal wall thickness, pericholecystic fluid nor biliary tree dilatation. No free fluid hepatorenal fossa no right renal obstruction. Liver echotexture is increased. No perihepatic fluid. Portal vein patent. Impression: * Cholelithiasis. If there is concern regarding acute biliary tract obstruction, consider HIDA scan or MRCP.. * Hepatic steatosis. Finalized by Miguel A Ware MD on 11/16/2023 4:14 PM [email or web address] Radiology Study observation (narrative) [email or web address] US Abdomen limitedOrdered By : Miguel A Ware on 11-16-2023 [employer] Work Phone: US.doppler Lower extremity v ein - bilateralon 11-16-2023 Right: Limited visualization of veins in the calf due to edema. Non-visualized, absent or surgically harvested Great saphenous superficial vein in the thigh. Remaining visualized deep venous segments are compressible with spontaneous phasic spectral Doppler waveforms. Superficial veins are compressible. Left: Limited visualization of veins in the calf due to edema. Non-visualized, absent or surgically harvested Great saphenous superficial vein in the thigh. Remaining visualized deep venous segments are compressible with spontaneous phasic spectral Doppler waveforms. Superficial veins are compressible. Conclusions: BILATERAL: NO EVIDENCE of deep or superficial vein thrombosis of the lower extremities. The great saphenous vein is not visualized or surgically absent. PM CARDIOVASCULAR Asava Aree, [place] t, MD - 11/16/2023 Right: Limited visualization of veins in the calf due to edema. Non-visualized, absent or surgically harvested Great saphenous superficial vein in the thigh. Remaining visualized deep venous segments are compressible with spontaneous phasic spectral Doppler waveforms. Superficial veins are compressible. Left: Limited visualization of veins in the calf due to edema. Non-visualized, absent or surgically harvested Great saphenous superficial vein in the thigh. Remaining visualized deep venous segments are compressible with spontaneous phasic spectral Doppler waveforms. Superficial veins are compressible. Conclusions: BILATERAL: NO EVIDENCE of deep or superficial vein thrombosis of the lower extremities. The great saphenous vein is not visualized or surgically absent. [facility] Radiology Study observation (narrative) [facility] US.doppler Lower extremity v ein - bilateralOrdered By: Devika Wilks on 11-16-[address] [facility] Work Phone: XR CHEST 2 VWSon 11-16-2023 XR CHEST 2 VWS XR CHEST 2 VWS XR CHEST 2 VWS 11/16/2023 8:38 AM HISTORY: OSEI (dyspnea on exertion), shortness of breath COMPARISON: XR chest 09/19/2023 TECHNIQUE: PA and lateral views of the chest obtained. FINDINGS: Lines/tubes: None. Respiratory: No pneumothorax, pleural effusion, or focal consolidation. Cardiomediastinum: Unchanged. Skeletal: Sternotomy wires intact. IMPRESSION: * No acute pulmonary process. Approved by Resident: Chaz Nunez MD on 11/16/2023 8:59 AM IReilly MD have personally reviewed the image(s) and agree with and/or edited the report Finalized by Reilly Hassan MD on 11/16/2023 10:44 AM Normal [facility] XR Chest PA and Lateralon XR CHEST 2 VWS 2023 8:38 AM HISTORY: OSEI (dyspnea on exertion), shortness of breath COMPARISON: XR chest 09/19/2023 TECHNIQUE: PA and lateral views of the chest obtained. FINDINGS: Lines/tubes: None. Respiratory: No pneumothorax, pleural effusion, or focal consolidation. Cardiomediastinum: Unchanged. Skeletal: Sternotomy wires intact. IMPRESSION: * No acute pulmonary process. Approved by Resident: Chaz Nunez MD on 11/16/2023 8:59 AM Reilly Brumfield MD have personally reviewed the image(s) and agree with and/or edited the report Finalized by Reilly Hassan MD on 11/16/2023 10:44 AM SECTRAReilly Foster M D - 11/16/2023 XR CHEST 2 VWS 11/16/2023 8:38 AM HISTORY: OSEI (dyspnea on exertion), shortness of breath COMPARISON: XR chest 09/19/2023 TECHNIQUE: PA and lateral views of the chest obtained. FINDINGS: Lines/tubes: None. Respiratory: No pneumothorax, pleural effusion, or focal consolidation. Cardiomediastinum: Unchanged. Skeletal: Sternotomy wires intact. IMPRESSION: * No acute pulmonary process. Approved by Resident: Chaz Nunez MD on 11/16/2023 8:59 AM Reilly Brumfield MD have personally reviewed the image(s) and agree with and/or edited the report Finalized by Reilly Hassan MD on 11/16/2023 10:44 AM [facility] Radiology Study observation (narrative) [facility] XR Chest PA and LateralOrder ed By: Reilly Hassan on 11-16-2023 [facility] Work Phone: BASIC METABOLIC PANLon 10-24 Anion gap [Moles/Vol] 9 mmol/L Normal -15 [facility] Comment on above: Performed By: #### B MARLYS, 47752-9 #### [facility] ([id number]) [address], [address] [place] [address] Calcium [Mass/Vol] 9.3 mg/dL Normal 8.5-10.5 [facility] Comment on above: Performed By: #### B MARLYS, 33138-3 #### [facility] ([id number]) [address], [address] [place] [address] Chloride [Moles/Vol] 106 mmol/L Normal 98-109 [facility] Comment on above: Performed By: #### Aristeo FRANKEL, #### [facility] ([id number]) [address] [place] [address] CO2 [Moles/Vol] 22 mmol/L Normal 22-32 [facility] Comment on above: Performed By: #### Aristeo FRANKEL, #### [facility] ([id number]) [address] [place] [address] Creatinine [Mass/Vol] 0.74 mg/dL Normal 0.60-1.30 [facility] Comment on above: Result Comment: METH OD TRACEABLE TO IDMS STANDARD Performed By: #### Aristeo FRANKEL, #### [facility] ([id number]) [address] [place] [address] eGFR (CKD-EPI) NON-RACE DEPENDENT >90 Normal >59 [facility] Comment on above: Result Comment: Reported eGFR is based on the CKD-EPI 2020 equation that does not use a race coefficient. Performed By: #### Aristeo FRAKNEL, #### [facility] ([id number]) [address], [address] [place] [address] Glucose [Mass/Vol] 218 mg/dL High 65-99 [facility] Comment on above: Performed By: #### Aristeo FRANKEL, #### [facility] ([id number]) [address], [address] [place] [address] Potassium [Moles/Vol] 4.3 mmol/L Normal 3.5-5.0 [facility] Comment on above: Performed By: #### Aristeo FRANKEL, #### [facility] ([id number]) [address], [address] [place] [address] Sodium [Moles/Vol] 137 mmol/L Normal 134-146 [facility] Comment on above: Performed By: #### B MARLYS, 93399-1 #### [facility] ([id number]) [address], [address] [place] [address] Urea nitrogen [Mass/Vol] 26 mg/dL Normal 5-27 [facility] Comment on above: Performed By: #### B MARLYS, 18187-2 #### [facility] ([id number]) [address] [place] [address] Basic Metabolic Panelon Anion gap [Moles/Vol] 12.4 mmol/L Normal 6.0-15.0 [facility] Comment on above: Performed By: #### C BC, BMP #### [facility] [address] [id number] [place] Calcium [Mass/Vol] 9.0 mg/dL Normal 8.6-10.3 [facility] Comment on above: Performed By: #### C BC, BMP #### [facility] [address] [id number] [place] Chloride [Moles/Vol] 104 mmol/L Normal 98-107 [facility] Comment on above: Performed By: #### C BC, BMP #### [facility] [address] [place] [address] [place] CO2 [Moles/Vol] 25.7 mmol/L Normal 21.0-31.0 [facility] Comment on above: Performed By: #### C BC, BMP #### [facility] [address] [place] [address] [place] Creatinine [Mass/Vol] 0.97 mg/dL Normal 0.70-1.30 [facility] Comment on above: Performed By: #### C BC, BMP #### [facility] [address] [id number] [place] Creatinine Clr Calc Pharmacy 93.62 Normal [facility] Comment on above: Result Comment: PERF ORMED BY: [facility] [address] [id number] PATHOLOGIST HEAD END DESIZING MACHINE OPERATOR PAULA STEWART M.D. Performed By: #### C BC, BMP #### [place] [address] [place] GFR/1.73 sq M.predicted MDRD (S/P/Bld) [Vol rate/Area] mL/min/{1.73_m2} Normal [facility] Comment on above: Performed By: #### C BC, BMP #### [address] Glucose [Mass/Vol] 144 mg/dL High 70-100 [facility] Comment on above: Result Comment: [facility] Glucose Reference Range is dependent on time and content of last meal. Glucose of more than 200 mg/dL in a nonstressed, ambulatory subject supports the diagnosis of Diabetes Mellitus. ADA recommended reference range Performed By: #### C BC, BMP #### [address] Potassium [Moles/Vol] 4.1 mmol/L Normal 3.5-5.1 [facility] Comment on above: Performed By: #### C BC, BMP #### [address] Sodium [Moles/Vol] 138 mmol/L Normal 136-145 [facility] Comment on above: Performed By: #### C BC, BMP #### [address] Urea nitrogen [Mass/Vol] 23 mg/dL Normal 7-25 [facility] Comment on above: Performed By: #### C BC, BMP #### [address] ECG 12 lead ECGon 10-09-2023 ECG 12 lead ECG [facility] [place] [address] [place] [address] Electrocardiograph Report Signed Patient: Tom Khan MR#: [id number] : 1955 Acct:[id number] Age/Sex: 68 / M ADM Date: 10/06/23 Loc: Room: 4X0043-2 Type: ADM IN Attending Dr: Myrna Interiano MD Ordering Provider: Kourtney Watts DO Date of Service: 10/09/2302/24/500 ECG/ECG 12 lead ECG: inf STEMI Copies to: Test Reason : Blood Pressure : / mmHG Vent. 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-AUG-2018) Abnormal ECG When compared with ECG of 08-OCT-2023 07:12, premature atrial complexes are no longer present Nonspecific T wave abnormality has replaced inverted T waves in Inferior leads Confirmed by CHARAN BAUTISTA MD ([id number]) on 10/09/2023 12:30:05 PM Referred By: Electronically Signed By:CHARAN BAUTISTA MD Transcribed By: MUS Signed By Charan Bautista MD 0 10/09/23 1230 Normal [facility] Glucose Poct Glucometerson 0 10-09-2023 Commemt1 Glu2: Cleaned Meter Normal [facility] Comment on above: Result Comment: PERF ORMED BY: [place] [address] PATHOLOGIST HEAD END DESIZING MACHINE OPERATOR PAULA STEWART M.D. Performed By: #### C SOBEIDA, BMP #### [address] Glucose [Mass/Vol] 156 mg/dL Normal [facility] Comment on above: Result Comment: [facility] Glucose Reference Range is dependent on time and content of last meal. Glucose of more than 200 mg/dL in a nonstressed, ambulatory subject supports the diagnosis of Diabetes Mellitus. Performed By: #### C SOBEIDA, BMP #### [address] Commemt1 Glu2: Cleaned Meter Normal [facility] Comment on above: Result Comment: PERF ORMED BY: [place] [address] PATHOLOGIST HEAD END DESIZING MACHINE OPERATOR PAULA STEWART M.D. Performed By: #### C BC, BMP #### [address] Glucose [Mass/Vol] 228 mg/dL Normal [facility] Comment on above: Result Comment: [place] Glucose Reference Range is dependent on time and content of last meal. Glucose of more than 200 mg/dL in a nonstressed, ambulatory subject supports the diagnosis of Diabetes Mellitus. Performed By: #### C BC, BMP #### [address] Urinalysison 10-09-2023 Appearance (U) Clear Normal Clear [facility] Comment on above: Order Comment: Name Collection Type:: Clean-Voided Midstream Performed By: #### C MP, MG, LIPID #### [address] Bilirubin,Urine Negative Normal Negative [facility] Comment on above: Order Comment: Name Collection Type:: Clean-Voided Midstream Performed By: #### C MP, MG, LIPID #### [address] Color (U) Yellow Normal Yellow [facility] Comment on above: Order Comment: Name Collection Type:: Clean-Voided Midstream Performed By: #### C MP, MG, LIPID #### [address] Glucose Ql (U) >=1000 High Normal [facility] Comment on above: Order Comment: Name Collection Type:: Clean-Voided Midstream Performed By: #### C MP, MG, LIPID #### [address] Ketones Ql (U) Negative Normal Negative [facility] Comment on above: Order Comment: Name Collection Type:: Clean-Voided Midstream Performed By: #### C MP, MG, LIPID #### [address] Leukocyte esterase Test strip Ql (U) Negative Normal Negative [facility] Comment on above: Order Comment: Name Collection Type:: Clean-Voided Midstream Performed By: #### C MP, MG, LIPID #### [place] [address] [place] Nitrite,Urine Negative Normal Negative [facility] Comment on above: Order Comment: Name Collection Type:: Clean-Voided Midstream Performed By: #### C MP, MG, LIPID #### [address] Occult Blood,Urine Negative Normal Negative [facility] Comment on above: Order Comment: Name Collection Type:: Clean-Voided Midstream Result Comment: PERF ORMED BY: [place] [address] PATHOLOGIST HEAD END DESIZING MACHINE OPERATOR PAULA STEWART M.D. Performed By: #### C MP, MG, LIPID #### [address] pH (U) 7.0 [pH] Normal 5.0-9.0 [facility] Comment on above: Order Comment: Name Collection Type:: Clean-Voided Midstream Performed By: #### C MP, MG, LIPID #### [address] Protein,Urine Negative Normal Negative [facility] Comment on above: Order Comment: Name Collection Type:: Clean-Voided Midstream Performed By: #### C MP, MG, LIPID #### [place] [address] [place] Specificy [place],Urine 1.025 Normal 1.001-1.030 [facility] Comment on above: Order Comment: Name Collection Type:: Clean-Voided Midstream Performed By: #### C MP, MG, LIPID #### [address] Urobilinogen,Urine Normal Normal Normal [facility] Comment on above: Order Comment: Name Collection Type:: Clean-Voided Midstream Performed By: #### C MP, MG, LIPID #### [address] Basic Metabolic Panelon Anion gap [Moles/Vol] 12.1 mmol/L Normal 6.0-15.0 [facility] Comment on above: Performed By: #### C MP, MG, LIPID #### [address] Calcium [Mass/Vol] 9.2 mg/dL Normal 8.6-10.3 [facility] Comment on above: Performed By: #### C MP, MG, LIPID #### [address] Chloride [Moles/Vol] 104 mmol/L Normal 98-107 [facility] Comment on above: Performed By: #### C MP, MG, LIPID #### [address] CO2 [Moles/Vol] 28.5 mmol/L Normal 21.0-31.0 [facility] Comment on above: Performed By: #### C MP, MG, LIPID #### [address] Creatinine [Mass/Vol] 0.93 mg/dL Normal 0.70-1.30 [facility] Comment on above: Performed By: #### C MP, MG, LIPID #### [place] [address] [place] Creatinine Clr Calc Pharmacy 97.03 Normal [facility] Comment on above: Result Comment: PERF ORMED BY: [place] [address] PATHOLOGIST HEAD END DESIZING MACHINE OPERATOR PAULA STEWART M.D. Performed By: #### C MP, MG, LIPID #### [place] [address] [place] GFR/1.73 sq M.predicted MDRD (S/P/Bld) [Vol rate/Area] mL/min/{1.73_m2} Normal [facility] Comment on above: Performed By: #### C MP, MG, LIPID #### [facility] [address] Glucose [Mass/Vol] 183 mg/dL High 70-100 [facility] Comment on above: Result Comment: [place] Glucose Reference Range is dependent on time and content of last meal. Glucose of more than 200 mg/dL in a nonstressed, ambulatory subject supports the diagnosis of Diabetes Mellitus. ADA recommended reference range Performed By: #### C MP, MG, LIPID #### [facility] [address] Potassium [Moles/Vol] 4.6 mmol/L Normal 3.5-5.1 [facility] Comment on above: Performed By: #### C MP, MG, LIPID #### [facility] [address] Sodium [Moles/Vol] 140 mmol/L Normal 136-145 [facility] Comment on above: Performed By: #### C MP, MG, LIPID #### [facility] [address] Urea nitrogen [Mass/Vol] 19 mg/dL Normal 7-25 [facility] Comment on above: Performed By: #### C MP, MG, LIPID #### [place] [id number] [facility] ECG 12 lead ECGon 10-08-2023 ECG 12 lead ECG [facility] [place] [address] [place] [address] Electrocardiograph Report Signed Patient: Tom Khan MR#: [id number] : 1955 Acct:[id number] Age/Sex: 68 / M ADM Date: 10/06/23 Loc: Room: [address] [place] [address] Type: ADM IN Attending Dr: Myrna Interiano MD Ordering Provider: Kourtney Watts DO Date of Service: 10/08/2301/24/500 ECG/ECG 12 lead ECG: inf STEMI Copies to: Test Reason : Blood Pressure : / mmHG Vent. Rate : 063 BPM Atrial Rate : 063 BPM P-R Int : 218 ms QRS Dur : 128 ms QT Int : 430 ms P-R-T Axes : 016 066 000 degrees QTc Int : 440 ms Sinus rhythm with 1st degree AV block with premature atrial complexes Right bundle branch block Voltage criteria for left ventricular hypertrophy Inferior infarct (cited on or before 15-AUG-2018) Abnormal ECG When compared with ECG of 07-OCT-2023 07:08, (Unconfirmed) premature atrial complexes are now present QT has shortened Confirmed by CHARAN BAUTISTA MD ([id number]) on 10/08/2023 11:30:15 AM Referred By: Electronically Signed By:CHARAN BAUTISTA MD Transcribed By: MUS Signed By Charan Bautista MD 0 10/08/23 1130 Normal [facility] echo transthoracicon [facility] echo transthoracic [facility] [place] [address] [place] [address] Echocardiogram Signed Patient: Tom Khan MR#: [id number] : 1955 Acct:[id number] Age/Sex: 68 / M ADM Date: 10/06/23 Loc: Room: [address] [place] [address] Type: ADM IN Attending Dr: Myrna Interiano MD Ordering Provider: Kourtney Watts DO Date of Service: 10/07/2312/25/499 [facility] echo transthoracic: inf STEMI Copies to: MD Kourtney Montalvo DO BSA: 2.3 m2 BP: 137/89 mmHg HR: 63 Reason For Study: inf STEMI History: Hypertension,DC,PCI Interpretation Summary Moderate concentric left ventricular hypertrophy. The LV ejection fraction is 55 %. A variety of Doppler measurements indicate impaired left ventricular relaxation, which is associated with grade I/IV or mild diastolic dysfunction. There is moderate inferior wall hypokinesis. The left atrium appears moderately dilated. There is trace mitral regurgitation. Compared to prior study, changes are noted. Moderate degree of inferior wall hypokinesis is now present. Procedure/Quality: A two-dimensional transthoracic echocardiogram with color flow, Doppler and injection of contrast agent Definity was performed. A two- dimensional transthoracic echocardiogram with color flow and Doppler was performed. The study was technically fair in quality. Left Ventricle: The left ventricular size is normal. Moderate concentric left ventricular hypertrophy. The LV ejection fraction is 55 %. A variety of Doppler measurements indicate impaired left ventricular relaxation, which is associated with grade I/IV or mild diastolic dysfunction. There is moderate inferior wall hypokinesis. Left Atrium: The left atrium appears moderately dilated. Right Atrium: The right atrium appears normal in size. Right Ventricle: The right ventricular size, thickness and function are normal. Aortic Valve: The aortic valve is normal in structure and function. No aortic regurgitation is present. Mitral Valve: The mitral valve is normal in structure and function. There is trace mitral regurgitation. Tricuspid Valve: The tricuspid valve is normal in structure and function. No tricuspid regurgitation. Pulmonic Valve: The pulmonic valve is normal in structure and function. Arteries: The aortic root is normal size. Pericardium/Pleura: No pericardial effusion seen. There is no pleural effusion. IVC/Hepatic Veins: The inferior vena cava is normal in size, with a normal collapsibility index. Measurements with Normals IVSd: 1.8 cm (0.7-1.1 cm)LVIDd: 4.6 cm (3.7-5.4 cm) LVPWd: 1.7 cm (0.7-1.1 cm)LVIDs: 3.2 cm (2.3-3.6 cm) LA dimension: 4.9 cm (2.3-4.0 cm)Ao root diam: 3.6 cm(2.0-3.6 cm) asc Aorta Diam: 3.7 cm(2.1-3.4cm) Doppler with Normals RVSP(TR): 22.7 mmHg (18-35mmHg) LV V1 max: 102.4 cm/sec (0.7-1.7m/s)MV E max ravinder: 67.3 cm/sec(0.8-1.3m/s) MV A max ravinder: 57.8 cm/sec(0.0-0.0m/s) MV E/A: 1.2 (<1.5) MMode/2D Measurements Calculations RVDd: 3.6 cm FS: 30.2 % Ao root area: LVOT diam: 2.4 cm RV S Ravinder: EDV(Teich): 9.9 cm2 LVOT area: 4.4 cm2 13.3 cm/sec 99.1 ml ESV(Teich): 42.1 ml EF(Teich): 57.5 % __ LVLd ap4: 9.3 cm SV(MOD-sp4): LAV(MOD-sp4): LA A2 area: 23.1 cm2 EDV(MOD-sp4): 99.5 ml 68.5 ml 180.0 ml LAV(MOD-sp2): LA A4 area: 22.2 cm2 LVLs ap4: 8.2 cm 70.0 ml LA length (vol): ESV(MOD-sp4): 6.0 cm 80.5 ml LA vol: 72.9 ml EF(MOD-sp4): 55.3 % LA vol index: 32.2 ml/m2 Doppler Measurements Calculations MV dec time: MV max PG: E/E' lat: 5.7 MV dec slope: 0.26 sec 25.0 mmHg E/E' med: 8.8 258.9 cm/sec2 __ Ao V2 max: LV V1 max PG: MR max ravinder: TV max P.0 mmHg 124.3 cm/sec 4.2 mmHg 251.0 cm/sec Ao max P.2 mmHgLV V1 mean PG: MR max PG: Ao mean P.3 mmHg 25.2 mmHg 3.6 mmHg LV V1 mean: Ao V2 mean: 70.2 cm/sec 89.0 cm/sec LV V1 VTI: 25.0 cm Ao V2 VTI: 28.4 cm JOANNE(I,D): 3.9 cm2 JOANNE(V,D): 3.7 cm2 __ TR max ravinder: 210.4 cm/sec TR max P.7 mmHg RAP systole: 5.0 mmHg Transcribed By: SCV Performed At: 10/08/23 1151 Signed By: Charan Bautista MD 10/08/23 1248 Normal [facility] Glucose Poct Glucometerson 0 10-08-2023 Glucose [Mass/Vol] 248 mg/dL Normal [facility] Comment on above: Result Comment: [place] om Glucose Reference Range is dependent on time and content of last meal. Glucose of more than 200 mg/dL in a nonstressed, ambulatory subject supports the diagnosis of Diabetes Mellitus. PERFORMED BY: [place] [address] PATHOLOGIST HEAD END DESIZING MACHINE OPERATOR PAULA STEWART M.D. Performed By: #### C BC, BMP #### [address] Glucose [Mass/Vol] 163 mg/dL Normal [facility] Comment on above: Result Comment: [place] om Glucose Reference Range is dependent on time and content of last meal. Glucose of more than 200 mg/dL in a nonstressed, ambulatory subject supports the diagnosis of Diabetes Mellitus. PERFORMED BY: [place] [address] PATHOLOGIST HEAD END DESIZING MACHINE OPERATOR PAULA STEWART M.D. Performed By: #### C MP, MG, LIPID #### [address] Glucose [Mass/Vol] 186 mg/dL Normal [facility] Comment on above: Result Comment: [place] om Glucose Reference Range is dependent on time and content of last meal. Glucose of more than 200 mg/dL in a nonstressed, ambulatory subject supports the diagnosis of Diabetes Mellitus. PERFORMED BY: [place] [address] PATHOLOGIST HEAD END DESIZING MACHINE OPERATOR PAULA STEWART M.D. Performed By: #### C MP, MG, LIPID #### [address] Glucose [Mass/Vol] 217 mg/dL Normal [facility] Comment on above: Result Comment: [place] om Glucose Reference Range is dependent on time and content of last meal. Glucose of more than 200 mg/dL in a nonstressed, ambulatory subject supports the diagnosis of Diabetes Mellitus. PERFORMED BY: [place] [address] PATHOLOGIST HEAD END DESIZING MACHINE OPERATOR PAULA STEWART M.D. Performed By: #### G ELLE #### Point of Care testing , Complete Blood Count Auto Di ffon 10-07-2023 Basophils (Bld) [#/Vol] 0.0 10*3/uL Normal 0.0-0.2 [facility] Comment on above: Result Comment: PERF ORMED BY: [address] [place] [address] PATHOLOGIST HEAD END DESIZING MACHINE OPERATOR PAULA STEWART M.D. Performed By: #### C SOBEIDA, BMP #### [address] Basophils/100 WBC (Bld) 0.4 % Normal . [facility] Comment on above: Performed By: #### C SOBEIDA, BMP #### [address] Eosinophils (Bld) [#/Vol] 0.2 10*3/uL Normal 0.0-0.45 [facility] Comment on above: Performed By: #### C SOBEIDA, BMP #### [address] Eosinophils/100 WBC (Bld) 2.5 % Normal . [facility] Comment on above: Performed By: #### C BC, BMP #### [address] Erythrocyte distribution width (RBC) [Ratio] 14.7 % Normal 12.0-14.8 [facility] Comment on above: Performed By: #### C BC, BMP #### [address] Hematocrit (Bld) [Volume fraction] 37.8 % Low 38.8-50.0 [facility] Comment on above: Performed By: #### C BC, BMP #### [address] Hemoglobin (Bld) [Mass/Vol] 12.7 g/dL Low 13.0-17.0 [facility] Comment on above: Performed By: #### C BC, BMP #### [address] Lymphocytes (Bld) [#/Vol] 1.5 10*3/uL Normal 1.00-4.8 [facility] Comment on above: Performed By: #### C BC, BMP #### [address] Lymphocytes/100 WBC (Bld) 15.7 % Normal . [facility] Comment on above: Performed By: #### C BC, BMP #### [address] MCH (RBC) [Entitic mass] 30.1 pg Normal 27.5-35.2 [facility] Comment on above: Performed By: #### C BC, BMP #### [address] MCV (RBC) [Entitic vol] 89.4 fL Normal 83.5-101 [facility] Comment on above: Performed By: #### C BC, BMP #### [address] Mean Corpuscular HGB Conc 33.7 g/dL Normal 32.5-35.6 [facility] Comment on above: Performed By: #### C BC, BMP #### [address] Monocytes (Bld) [#/Vol] 1.0 10*3/uL High 0.0-0.8 [facility] Comment on above: Performed By: #### C BC, BMP #### [address] Monocytes/100 WBC (Bld) 10.5 % Normal . [facility] Comment on above: Performed By: #### C BC, BMP #### [address] Neutrophils (Bld) [#/Vol] 6.6 10*3/uL Normal 1.8-7.7 [facility] Comment on above: Performed By: #### C BC, BMP #### [facility] [address] Neutrophils/100 WBC (Bld) 70.9 % Normal . [facility] Comment on above: Performed By: #### C BC, BMP #### [facility] [address] NRBC% 0.0 /100{WBC} Normal 0-0.5 [facility] Comment on above: Performed By: #### C BC, BMP #### [facility] [address] Platelet mean volume (Bld) [Entitic vol] 6.6 fL Normal 6.6-10.1 [facility] Comment on above: Performed By: #### C BC, BMP #### [address] Platelets (Bld) [#/Vol] 434 10*3/uL Normal 150-450 [facility] Comment on above: Performed By: #### C BC, BMP #### [facility] [address] RBC (Bld) [#/Vol] 4.23 10*6/uL Normal 3.90-5.60 [facility] Comment on above: Performed By: #### C BC, BMP #### [address] WBC (Bld) [#/Vol] 9.4 10*3/uL Normal 4.1-10.5 [facility] Comment on above: Performed By: #### C BC, BMP #### [address] Comprehensive Metabolic Pane néstor 10-07-2023 Albumin [Mass/Vol] 3.6 g/dL Normal 3.5-5.7 [facility] Comment on above: Performed By: #### C MP, MG, LIPID #### [address] Albumin/Globulin [Mass ratio] 1.1 {ratio} Normal [facility] Comment on above: Performed By: #### C MP, MG, LIPID #### [address] ALP [Catalytic activity/Vol] 48 U/L Normal 34-104 [facility] Comment on above: Performed By: #### C MP, MG, LIPID #### [address] ALT [Catalytic activity/Vol] 24 U/L Normal 7-52 [facility] Comment on above: Performed By: #### C MP, MG, LIPID #### [address] Anion gap [Moles/Vol] 11.3 mmol/L Normal 6.0-15.0 [facility] Comment on above: Performed By: #### C MP, MG, LIPID #### [address] AST [Catalytic activity/Vol] 20 U/L Normal 13-39 [facility] Comment on above: Performed By: #### C MP, MG, LIPID #### [address] Bilirubin [Mass/Vol] 0.3 mg/dL Normal 0.3-1.0 [facility] Comment on above: Performed By: #### C MP, MG, LIPID #### [place] [address] [place] Calcium [Mass/Vol] 9.0 mg/dL Normal 8.6-10.3 [facility] Comment on above: Performed By: #### C MP, MG, LIPID #### [place] [address] [place] Chloride [Moles/Vol] 105 mmol/L Normal 98-107 [facility] Comment on above: Performed By: #### C MP, MG, LIPID #### [place] [address] [place] CO2 [Moles/Vol] 25.7 mmol/L Normal 21.0-31.0 [facility] Comment on above: Performed By: #### C MP, MG, LIPID #### [address] Creatinine [Mass/Vol] 0.93 mg/dL Normal 0.70-1.30 [facility] Comment on above: Performed By: #### C MP, MG, LIPID #### [address] Creatinine Clr Calc Pharmacy 96.81 Normal [facility] Comment on above: Performed By: #### C MP, MG, LIPID #### [address] GFR/1.73 sq M.predicted MDRD (S/P/Bld) [Vol rate/Area] mL/min/{1.73_m2} Normal [facility] Comment on above: Performed By: #### C MP, MG, LIPID #### [address] Globulin (S) [Mass/Vol] 3.2 g/dL Normal [facility] Comment on above: Performed By: #### C MP, MG, LIPID #### [address] Glucose [Mass/Vol] 181 mg/dL High 70-100 [facility] Comment on above: Result Comment: [place] Glucose Reference Range is dependent on time and content of last meal. Glucose of more than 200 mg/dL in a nonstressed, ambulatory subject supports the diagnosis of Diabetes Mellitus. ADA recommended reference range Performed By: #### C MP, MG, LIPID #### [address] Potassium [Moles/Vol] 4.0 mmol/L Normal 3.5-5.1 [facility] Comment on above: Performed By: #### C MP, MG, LIPID #### [address] Protein [Mass/Vol] 6.8 g/dL Normal 6.4-8.9 [facility] Comment on above: Performed By: #### C MP, MG, LIPID #### [facility] [address] Sodium [Moles/Vol] 138 mmol/L Normal 136-145 [facility] Comment on above: Performed By: #### C MP, MG, LIPID #### [facility] [address] [place] [id number] [facility] Urea nitrogen [Mass/Vol] 15 mg/dL Normal 7-25 [facility] Comment on above: Performed By: #### C MP, MG, LIPID #### [facility] [address] [place] [id number] [facility] ECG 12 lead ECGon 10-07-2023 ECG 12 lead ECG [facility] [place] [address] [place] [address] Electrocardiograph Report Signed Patient: Tom Khan MR#: [id number] : 1955 Acct:[id number] Age/Sex: 68 / M ADM Date: 10/06/23 Loc: Room: [address] [place] [address] Type: ADM IN Attending Dr: Myrna Interiano MD Ordering Provider: Kourtney Watts DO Date of Service: 10/07/2312/25/499 ECG/ECG 12 lead ECG: inf STEMI Copies to: Test Reason : Blood Pressure : / mmHG Vent. 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-2018) Abnormal ECG When compared with ECG of 06-OCT-2023 11:26, (Unconfirmed) (RBBB and left posterior fascicular block) is now present Confirmed by CHARAN BAUTISTA MD ([id number]) on 10/08/2023 11:30:07 AM Referred By: Electronically Signed By:CHARAN BAUTISTA MD Transcribed By: MUS Signed By Charan Bautista MD 0 10/08/23 1130 Normal [facility] Glucose Poct Glucometerson 0 10-07-2023 Glucose [Mass/Vol] 185 mg/dL Normal [facility] Comment on above: Result Comment: [place] om Glucose Reference Range is dependent on time and content of last meal. Glucose of more than 200 mg/dL in a nonstressed, ambulatory subject supports the diagnosis of Diabetes Mellitus. PERFORMED BY: [place] [address] PATHOLOGIST HEAD END DESIZING MACHINE OPERATOR PAULA STEWART M.D. Performed By: #### C MP, MG, LIPID #### [facility] [address] [place] [address] [place] Commemt1 Normal [facility] Comment on above: Result Comment: Glu2 : SLIDING SCALE COVERA PERFORMED BY: [place] [address] PATHOLOGIST HEAD END DESIZING MACHINE OPERATOR PAULA STEWART M.D. Performed By: #### C BC, BMP #### [address] Glucose [Mass/Vol] 142 mg/dL Normal [facility] Comment on above: Result Comment: [place] Glucose Reference Range is dependent on time and content of last meal. Glucose of more than 200 mg/dL in a nonstressed, ambulatory subject supports the diagnosis of Diabetes Mellitus. Performed By: #### C BC, BMP #### [place] [address] [place] Commemt1 Glu2: Cleaned Meter Normal [facility] Comment on above: Result Comment: PERF ORMED BY: [place] [address] PATHOLOGIST HEAD END DESIZING MACHINE OPERATOR PAULA STEWART M.D. Performed By: #### C BC, BMP #### [address] Glucose [Mass/Vol] 144 mg/dL Normal [facility] Comment on above: Result Comment: [place] Glucose Reference Range is dependent on time and content of last meal. Glucose of more than 200 mg/dL in a nonstressed, ambulatory subject supports the diagnosis of Diabetes Mellitus. Performed By: #### C BC, BMP #### [facility] [address] Commemt1 Glu2: Cleaned Meter Normal [facility] Comment on above: Performed By: #### C BC, BMP #### [facility] [address] Commemt2 SLIDING SCALE COVERA Normal [facility] Comment on above: Result Comment: PERF ORMED BY: [place] [address] PATHOLOGIST HEAD END DESIZING MACHINE OPERATOR PAULA STEWART M.D. Performed By: #### C BC, BMP #### [address] Glucose [Mass/Vol] 213 mg/dL Normal [facility] Comment on above: Result Comment: [place] Glucose Reference Range is dependent on time and content of last meal. Glucose of more than 200 mg/dL in a nonstressed, ambulatory subject supports the diagnosis of Diabetes Mellitus. Performed By: #### C BC, BMP #### [address] Lipid Panelon 10-07-2023 Cholesterol [Mass/Vol] 198 mg/dL Normal 140-200 [facility] Comment on above: Result Comment: Chol less than 200 mg/dl low risk Chol 201-239 mg/dl borderline risk Chol 240 mg/dl and greater high risk Performed By: #### C MP, MG, LIPID #### [address] Cholesterol in HDL [Mass/Vol] 35 mg/dL Normal 23-92 [facility] Comment on above: Result Comment: HDL CHOL ATP-III CLASSIFICATION Cardiovascular Risk HDL > or equal to 60 mg/dL LOW HDL < 40 mg/dL HIGH Performed By: #### C MP, MG, LIPID #### [facility] [address] Cholesterol.total/ Cholesterol in HDL [Mass ratio] 5.7 {ratio} Normal <5.0 [facility] Comment on above: Result Comment: PERF ORMED BY: [place] [address] PATHOLOGIST HEAD END DESIZING MACHINE OPERATOR PAULA STEWART M.D. Performed By: #### C MP, MG, LIPID #### [address] LDL Cholesterol,Calcul ated 104 mg/dL High 0-100 [facility] Comment on above: Result Comment: LDL ATP III CLASSIFICATION LDL less than 100 mg/dL Optimal LDL 100-129 mg/dL Near or above optimal LDL 130-159 mg/dL Borderline high LDL 160-189 mg/dL High LDL greater than 189 mg/dL Very high Performed By: #### C MP, MG, LIPID #### [address] Triglyceride w/Reflex 297 mg/dL High 0-149 [facility] Comment on above: Result Comment: TRIG ATP III CLASSIFICATION TRIG less than 150 mg/dL Normal TRIG 150-199 mg/dL Borderline high TRIG 200-500 mg/dL High TRIG greater than 500 mg/dL Very high Standard traceable to the Center for Disease Conrtrol and Prevention (CDC) test method. Performed By: #### C MP, MG, LIPID #### [address] VLDL CHOLESTEROL 59 mg/dL Normal [facility] Comment on above: Performed By: #### C MP, MG, LIPID #### [address] Magnesiumon 10-07-2023 Magnesium [Mass/Vol] 2.3 mg/dL Normal 1.9-2.7 [facility] Comment on above: Performed By: #### C MP, MG, LIPID #### [address] Partial Thromboplastin Timeo n 10-07-2023 aPTT Coag (Bld) [Time] 32.5 s Normal 25.1-36.5 [facility] Comment on above: Result Comment: A he matocrit value greater than 55% may lead to inaccurate results in coagulation testing. Patients having hematocrit values >55% require a special collection tube for coagulation studies. Please contact the laboratory at [phone] for redraw instructions. PERFORMED BY: [place] [address] PATHOLOGIST HEAD END DESIZING MACHINE OPERATOR PAULA STEWART M.D. Performed By: #### C SOBEIDA, BMP #### [place] [id number] [facility] Prothrombin Time INRon 10-07 INR Coag (PPP) [Relative time] 1.1 {INR} Normal [facility] Comment on above: Result Comment: INR Therapeutic Range A) Pre- and Peroperative OAT started two weeks before surgery. NOT HIP SURGERY: 1.5 - 2.5 HIP SURGERY: 2 - 3 B) Primary and secondary prevention of venous THROMBOSIS: 2 - 3 C) Active venous thrombosis, pulmonary embolism and prevention of recurrent venous thrombosis: 2 - 3 D) Prevention of arterial thromboembolism including patients with mechanical heart valves: 3 - 4.5 Performed By: #### C SOBEIDA, BMP #### [place] [id number] [facility] PT Coag (PPP) [Time] 12.8 s Normal 9.0-12.9 [facility] Comment on above: Result Comment: A he matocrit value greater than 55% may lead to inaccurate results in coagulation testing. Patients having hematocrit values >55% require a special collection tube for coagulation studies. Please contact the laboratory at [phone] for redraw instructions. Performed By: #### C SOBEIDA, BMP #### [place] [id number] [facility] Troponin I High Sensitivityo n 10-07-2023 Troponin I High Sensitivity 1108.3 pg/mL Off scale high 0.0-20.0 [facility] Comment on above: Result Comment: Crit ical Result : Called to and read back by: MCKINLEY BRADLEY at: 10/07/2023 06:23:47 by:[id number] PERFORMED BY: [address] [address] PATHOLOGIST HEAD END DESIZING MACHINE OPERATOR JIANLAN SUN M.D. Performed By: #### C BC, BMP #### [place] [id number] [facility] Basic Metabolic Panelon 02-0 Anion gap [Moles/Vol] 12.2 mmol/L Normal 6.0-15.0 [facility] Comment on above: Performed By: #### G LULS #### Point of Care testing , Calcium [Mass/Vol] 9.2 mg/dL Normal 8.6-10.3 [facility] Comment on above: Performed By: #### G LULS #### Point of Care testing , Chloride [Moles/Vol] 105 mmol/L Normal 98-107 [facility] Comment on above: Performed By: #### G LULS #### Point of Care testing , CO2 [Moles/Vol] 28.6 mmol/L Normal 21.0-31.0 [facility] Comment on above: Performed By: #### G LULS #### Point of Care testing , Creatinine [Mass/Vol] 0.96 mg/dL Normal 0.70-1.30 [facility] Comment on above: Performed By: #### G LULS #### Point of Care testing , Creatinine Clr Calc Pharmacy 96.76 Normal [facility] Comment on above: Result Comment: PERF ORMED BY: [place] [address] PATHOLOGIST HEAD END DESIZING MACHINE OPERATOR PAULA STEWART M.D. Performed By: #### G LULS #### Point of Care testing , GFR/1.73 sq M.predicted MDRD (S/P/Bld) [Vol rate/Area] mL/min/{1.73_m2} Normal [facility] Comment on above: Performed By: #### G LULS #### Point of Care testing , Glucose [Mass/Vol] 131 mg/dL High 70-100 [facility] Comment on above: Result Comment: [place] Glucose Reference Range is dependent on time and content of last meal. Glucose of more than 200 mg/dL in a nonstressed, ambulatory subject supports the diagnosis of Diabetes Mellitus. ADA recommended reference range Performed By: #### G LULS #### Point of Care testing , Potassium [Moles/Vol] 4.8 mmol/L Normal 3.5-5.1 [facility] [facility] Comment on above: Performed By: #### G DAMEONLS #### Point of Care testing , Sodium [Moles/Vol] 141 mmol/L Normal 136-145 [facility] Comment on above: Performed By: #### G LULS #### Point of Care testing , Urea nitrogen [Mass/Vol] 15 mg/dL Normal 7-25 [facility] Comment on above: Performed By: #### G LULS #### Point of Care testing , Coagulation Profileon 2023 aPTT Coag (Bld) [Time] 30.8 s Normal 25.1-36.5 [facility] Comment on above: Result Comment: A he matocrit value greater than 55% may lead to inaccurate results in coagulation testing. Patients having hematocrit values >55% require a special collection tube for coagulation studies. Please contact the laboratory at [phone] for redraw instructions. PERFORMED BY: [place] [address] PATHOLOGIST HEAD END DESIZING MACHINE OPERATOR PAULA STEWART M.D. Performed By: #### C SOBEIDA, BMP #### [place] [id number] [facility] INR Coag (PPP) [Relative time] 1.1 {INR} Normal [facility] Comment on above: Result Comment: INR Therapeutic Range A) Pre- and Peroperative OAT started two weeks before surgery. NOT HIP SURGERY: 1.5 - 2.5 HIP SURGERY: 2 - 3 B) Primary and secondary prevention of venous THROMBOSIS: 2 - 3 C) Active venous thrombosis, pulmonary embolism and prevention of recurrent venous thrombosis: 2 - 3 D) Prevention of arterial thromboembolism including patients with mechanical heart valves: 3 - 4.5 Performed By: #### C BC, BMP #### [place] [id number] [facility] PT Coag (PPP) [Time] 12.6 s Normal 9.0-12.9 [facility] Comment on above: Result Comment: A he matocrit value greater than 55% may lead to inaccurate results in coagulation testing. Patients having hematocrit values >55% require a special collection tube for coagulation studies. Please contact the laboratory at [phone] for redraw instructions. Performed By: #### C BC, BMP #### [address] Complete Blood Count Auto Di ffon 10-06-2023 Basophils (Bld) [#/Vol] 0.1 10*3/uL Normal 0.0-0.2 [facility] Comment on above: Result Comment: PERF ORMED BY: [place] [address] PATHOLOGIST HEAD END DESIZING MACHINE OPERATOR PAULA STEWART M.D. Performed By: #### C BC, BMP #### [address] Basophils/100 WBC (Bld) 0.8 % Normal . [facility] Comment on above: Performed By: #### C BC, BMP #### [address] Eosinophils (Bld) [#/Vol] 0.2 10*3/uL Normal 0.0-0.45 [facility] Comment on above: Performed By: #### C BC, BMP #### [address] Eosinophils/100 WBC (Bld) 2.1 % Normal . [facility] Comment on above: Performed By: #### C BC, BMP #### [address] Erythrocyte distribution width (RBC) [Ratio] 14.9 % High 12.0-14.8 [facility] Comment on above: Performed By: #### C BC, BMP #### [address] Hematocrit (Bld) [Volume fraction] 37.5 % Low 38.8-50.0 [facility] Comment on above: Performed By: #### C BC, BMP #### [address] Hemoglobin (Bld) [Mass/Vol] 12.9 g/dL Low 13.0-17.0 [facility] Comment on above: Performed By: #### C BC, BMP #### [address] Lymphocytes (Bld) [#/Vol] 1.2 10*3/uL Normal 1.00-4.8 [facility] Comment on above: Performed By: #### C BC, BMP #### [address] Lymphocytes/100 WBC (Bld) 14.2 % Normal . [facility] Comment on above: Performed By: #### C BC, BMP #### [address] MCH (RBC) [Entitic mass] 30.5 pg Normal 27.5-35.2 [facility] Comment on above: Performed By: #### C BC, BMP #### [address] MCV (RBC) [Entitic vol] 88.8 fL Normal 83.5-101 [facility] Comment on above: Performed By: #### C BC, BMP #### [address] Mean Corpuscular HGB Conc 34.4 g/dL Normal 32.5-35.6 [facility] Comment on above: Performed By: #### C BC, BMP #### [address] Monocytes (Bld) [#/Vol] 0.8 10*3/uL Normal 0.0-0.8 [facility] Comment on above: Performed By: #### C BC, BMP #### [address] Monocytes/100 WBC (Bld) 9.0 % Normal . [facility] Comment on above: Performed By: #### C BC, BMP #### [address] Neutrophils (Bld) [#/Vol] 6.5 10*3/uL Normal 1.8-7.7 [facility] Comment on above: Performed By: #### C BC, BMP #### [address] Neutrophils/100 WBC (Bld) 73.9 % Normal . [facility] Comment on above: Performed By: #### C BC, BMP #### [facility] [address] NRBC% 0.1 /100{WBC} Normal 0-0.5 [facility] Comment on above: Performed By: #### C SOBEIDA, BMP #### [address] Platelet mean volume (Bld) [Entitic vol] 6.9 fL Normal 6.6-10.1 [facility] Comment on above: Performed By: #### C SOBEIDA, BMP #### [address] Platelets (Bld) [#/Vol] 478 10*3/uL High 150-450 [facility] Comment on above: Performed By: #### C SOBEIDA, BMP #### [address] RBC (Bld) [#/Vol] 4.22 10*6/uL Normal 3.90-5.60 [facility] Comment on above: Performed By: #### C SOBEIDA, BMP #### [place] [address] [place] WBC (Bld) [#/Vol] 8.8 10*3/uL Normal 4.1-10.5 [facility] Comment on above: Performed By: #### C SOBEIDA, BMP #### [place] [address] [place] Basophils (Bld) [#/Vol] 0.1 10*3/uL Normal 0.0-0.2 [facility] Comment on above: Result Comment: PERF ORMED BY: [place] [address] PATHOLOGIST HEAD END DESIZING MACHINE OPERATOR PAULA STEWART M.D. Performed By: #### G LULS #### Point of Care testing , Basophils/100 WBC (Bld) 0.8 % Normal . [facility] Comment on above: Performed By: #### G LULS #### Point of Care testing , Eosinophils (Bld) [#/Vol] 0.4 10*3/uL Normal 0.0-0.45 [facility] Comment on above: Performed By: #### G LULS #### Point of Care testing , Eosinophils/100 WBC (Bld) 4.9 % Normal . [facility] Comment on above: Performed By: #### G LULS #### Point of Care testing , Erythrocyte distribution width (RBC) [Ratio] 14.8 % Normal 12.0-14.8 [facility] Comment on above: Performed By: #### G LULS #### Point of Care testing , Hematocrit (Bld) [Volume fraction] 37.4 % Low 38.8-50.0 [facility] Comment on above: Performed By: #### G LULS #### Point of Care testing , Hemoglobin (Bld) [Mass/Vol] 12.5 g/dL Low 13.0-17.0 [facility] Comment on above: Performed By: #### G LULS #### Point of Care testing , Lymphocytes (Bld) [#/Vol] 2.1 10*3/uL Normal 1.00-4.8 [facility] Comment on above: Performed By: #### G LULS #### Point of Care testing , Lymphocytes/100 WBC (Bld) 26.7 % Normal . [facility] Comment on above: Performed By: #### G LULS #### Point of Care testing , MCH (RBC) [Entitic mass] 29.8 pg Normal 27.5-35.2 [facility] Comment on above: Performed By: #### G LULS #### Point of Care testing , MCV (RBC) [Entitic vol] 89.5 fL Normal 83.5-101 [facility] Comment on above: Performed By: #### G LULS #### Point of Care testing , Mean Corpuscular HGB Conc 33.3 g/dL Normal 32.5-35.6 [facility] Comment on above: Performed By: #### G LULS #### Point of Care testing , Monocytes (Bld) [#/Vol] 0.8 10*3/uL Normal 0.0-0.8 [facility] Comment on above: Performed By: #### G LULS #### Point of Care testing , Monocytes/100 WBC (Bld) 10.4 % Normal . [facility] Comment on above: Performed By: #### G LULS #### Point of Care testing , Neutrophils (Bld) [#/Vol] 4.4 10*3/uL Normal 1.8-7.7 [facility] Comment on above: Performed By: #### G LULS #### Point of Care testing , Neutrophils/100 WBC (Bld) 57.2 % Normal . [facility] Comment on above: Performed By: #### G LULS #### Point of Care testing , NRBC% 0.2 /100{WBC} Normal 0-0.5 [facility] Comment on above: Performed By: #### G LULS #### Point of Care testing , Platelet mean volume (Bld) [Entitic vol] 6.5 fL Low 6.6-10.1 [facility] Comment on above: Performed By: #### G LULS #### Point of Care testing , Platelets (Bld) [#/Vol] 440 10*3/uL Normal 150-450 [facility] Comment on above: Performed By: #### G LULS #### Point of Care testing , RBC (Bld) [#/Vol] 4.18 10*6/uL Normal 3.90-5.60 [facility] Comment on above: Performed By: #### G LULS #### Point of Care testing , WBC (Bld) [#/Vol] 7.7 10*3/uL Normal 4.1-10.5 [facility] Comment on above: Performed By: #### G LULS #### Point of Care testing , ECG 12 lead ECGon 10-06-2023 ECG 12 lead ECG [facility] Main [place] [id number] Electrocardiograph Report Signed Patient: Tom Khan MR#: [id number] : 1955 Acct:[id number] Age/Sex: 68 / M ADM Date: 10/06/23 Loc: Room: [address] [place] [address] Type: ADM IN Attending Dr: Myrna Interiano MD Ordering Provider: Kourtney Watts DO Date of Service: 10/06/2311/24/1125 ECG/ECG 12 lead ECG: exam completed on 10/06 Copies to: Test Reason : Blood Pressure : / mmHG Vent. Rate : 090 BPM Atrial Rate : 090 BPM P-R Int : 200 ms QRS Dur : 124 ms QT Int : 406 ms P-R-T Axes : 031 107 078 degrees QTc Int : 496 ms Normal sinus rhythm Rightward axis Inferior infarct , possibly acute ACUTE DC Consider right ventricular involvement in acute inferior infarct Abnormal ECG When compared with ECG of 21-SEP-2023 12:53, (Unconfirmed) Significant changes have occurred Confirmed by CHARAN BAUTISTA MD ([id number]) on 10/08/2023 11:29:54 AM Referred By: Electronically Signed By:CHARAN BAUTISTA MD Transcribed By: MUS Signed By Charan Bautista MD 0 10/08/23 1130 Normal [facility] ECG 12 lead ECG [facility] Main [address] [address] Electrocardiograph Report Signed Patient: Tom Khan MR#: [id number] : 1955 Acct:[id number] Age/Sex: 68 / M ADM Date: 09/26/23 Loc: Room: 6I6132-8 Type: DIS IN Attending Dr: Bobby Portillo MD Ordering Provider: Jerica Oliver APRN Date of Service: 10/06/2311/24/1053 ECG/ECG 12 lead ECG: chest pain Copies to: Test Reason : Blood Pressure : / mmHG Vent. Rate : 077 BPM Atrial Rate : 077 BPM P-R Int : 216 ms QRS Dur : 126 ms QT Int : 418 ms P-R-T Axes : 035 104 090 degrees QTc Int : 473 ms Sinus rhythm with 1st degree AV block Rightward axis Nonspecific intraventricular block ST elevation, consider inferior injury or acute infarct ACUTE DC / STEMI Consider right ventricular involvement in acute inferior infarct Abnormal ECG When compared with ECG of 15-AUG-2018 13:46, [place] interval has increased Minimal criteria for Inferior infarct are no longer present ST more elevated in Inferior leads ST now depressed in Anterior leads Confirmed by Alek Damon ([id number]) on 10/06/2023 1:58:41 PM Referred By: Electronically Signed By:Alek Damon REVISED DOCUMENT/10/25/2023/ (corrected prov sig) Transcribed By: MUS Signed By Alek Damon MD 10/26/23 1233 Normal [facility] Glucose Poct Glucometerson 0 10-06-2023 Glucose [Mass/Vol] 150 mg/dL Normal [facility] Comment on above: Result Comment: [facility] Glucose Reference Range is dependent on time and content of last meal. Glucose of more than 200 mg/dL in a nonstressed, ambulatory subject supports the diagnosis of Diabetes Mellitus. PERFORMED BY: [address] [place] [address] PATHOLOGIST HEAD END DESIZING MACHINE OPERATOR PAULA STEWART M.D. Performed By: #### G LULS #### Point of Care testing , Commemt1 Glu2: Cleaned Meter Normal [facility] Comment on above: Performed By: #### G LULS #### Point of Care testing , Commemt2 SLIDING SCALE COVERA Normal [facility] Comment on above: Result Comment: PERF ORMED BY: [facility] [address] [facility] [place] [address] PATHOLOGIST HEAD END DESIZING MACHINE OPERATOR PAULA STEWART M.D. Performed By: #### G LULS #### Point of Care testing , Glucose [Mass/Vol] 117 mg/dL Normal [facility] Comment on above: Result Comment: [place] Glucose Reference Range is dependent on time and content of last meal. Glucose of more than 200 mg/dL in a nonstressed, ambulatory subject supports the diagnosis of Diabetes Mellitus. Performed By: #### G LULS #### Point of Care testing , Glucose [Mass/Vol] 151 mg/dL Normal [facility] Comment on above: Result Comment: [place] Glucose Reference Range is dependent on time and content of last meal. Glucose of more than 200 mg/dL in a nonstressed, ambulatory subject supports the diagnosis of Diabetes Mellitus. PERFORMED BY: [place] [address] PATHOLOGIST HEAD END DESIZING MACHINE OPERATOR PAULA STEWART M.D. Performed By: #### G LULS #### Point of Care testing , Glucose [Mass/Vol] 149 mg/dL Normal [facility] Comment on above: Result Comment: [place] Glucose Reference Range is dependent on time and content of last meal. Glucose of more than 200 mg/dL in a nonstressed, ambulatory subject supports the diagnosis of Diabetes Mellitus. PERFORMED BY: [place] [address] PATHOLOGIST HEAD END DESIZING MACHINE OPERATOR PAULA STEWART M.D. Performed By: #### C MP, MG, LIPID #### [address] Magnesiumon 10-06-2023 Magnesium [Mass/Vol] 2.0 mg/dL Normal 1.9-2.7 [facility] Comment on above: Order Comment: Comme nt add on to labs from [facility] Result Comment: PERF ORMED BY: [place] [address] PATHOLOGIST HEAD END DESIZING MACHINE OPERATOR PAULA STEWART M.D. Performed By: #### G LULS #### Point of Care testing , Troponin I High Sensitivityo n 10-06-2023 Troponin I High Sensitivity 1936.3 pg/mL Off scale high 0.0-20.0 [facility] Comment on above: Result Comment: Crit ical Result : Called to and read back by: MCKINLEY BOLTON at: 10/06/2023 21:45:31 by:DC PERFORMED BY: [place] [address] PATHOLOGIST HEAD END DESIZING MACHINE OPERATOR PALUA STEWART M.D. Performed By: #### G LULS #### Point of Care testing , Troponin I High Sensitivity 1686.1 pg/mL Off scale high 0.0-20.0 [facility] Comment on above: Result Comment: Crit ical Result : Called to and read back by: DANIA JONES at: 10/06/2023 19:32:21 by:[id number] PERFORMED BY: [phone] PATHOLOGIST HEAD END DESIZING MACHINE OPERATOR PAULA STEWART M.D. Performed By: #### C MP, MG, LIPID #### [address] Troponin I High Sensitivity 1484.1 pg/mL Off scale high 0.0-20.0 [facility] Comment on above: Result Comment: Crit ical Result : Called to and read back by: AAKASH MCKEON at: 10/06/2023 18:22:23 by:DC PERFORMED BY: [phone] PATHOLOGIST HEAD END DESIZING MACHINE OPERATOR PAULA STEWART M.D. Performed By: #### C MP, MG, LIPID #### [address] Troponin I High Sensitivity 584.7 pg/mL Off scale high 0.0-20.0 [facility] Comment on above: Result Comment: Crit ical Result : Called to and read back by: SILVIA SIDDIQUI at: 10/06/2023 15:51:46 by:DC PERFORMED BY: [place] [phone] PATHOLOGIST HEAD END DESIZING MACHINE OPERATOR PAULA STEWART M.D. Performed By: #### C MP, MG, LIPID #### [address] Troponin I High Sensitivity 66.1 pg/mL Off scale high 0.0-20.0 [facility] Comment on above: Result Comment: Crit ical Result : Called to and read back by: JOYCE NARAYAN at: 10/06/2023 12:25:44 by:[id number] PERFORMED BY: [place] [id number] PATHOLOGIST HEAD END DESIZING MACHINE OPERATOR PAULA STEWART M.D. Performed By: #### G LULS #### Point of Care testing , XR chest 1V portableon 10-06 XR chest 1V portable [facility] Main [place] [address] [place], [place] [id number] XRay Report Signed Patient: Tom Khan MR#: [id number] : 1955 Acct:[id number] Age/Sex: 68 / M ADM Date: 09/26/23 Loc: Room: [address] [place] [address] Type: DIS IN Attending Dr: Bobby Portillo MD Copies to: MD Jerica Crawford APRN Ordering Provider: Jerica Oliver APRN Date of Service: 10/06/23 XR/XR chest 1V portable: chest pain PORTABLE AP ERECT CHEST 1134 hours CLINICAL HISTORY: Chest pain. Status post lumbar laminectomy COMPARISON: None Median sternotomy wires are present. The heart is borderline prominent. There is a suspected pericardial fat pad on the right. There is no significant vascular congestion. No consolidation is seen. There is no effusion or pneumothorax. The bony structures are osteopenic. Endplate spurring is noted. XR/XR chest 1V portable IMPRESSION: NO DEFINITE ACUTE FINDINGS Impression dictated by: Narda Lin M.D.10/06/2023 1:35 PM Dictation Location: [place] [address] Transcribed By: [facility] 10/06/23 1335 Dictated By: Narda Lin MD 10/06/23 1333 Signed By: 10/06/23 1335 Normal [facility] Glucose Poct Glucometerson 0 10-05-2023 Glucose [Mass/Vol] 178 mg/dL Normal [facility] Comment on above: Result Comment: [place] Glucose Reference Range is dependent on time and content of last meal. Glucose of more than 200 mg/dL in a nonstressed, ambulatory subject supports the diagnosis of Diabetes Mellitus. PERFORMED BY: [place] [address] PATHOLOGIST HEAD END DESIZING MACHINE OPERATOR PAULA STEWART M.D. Performed By: #### C MP, MG, LIPID #### [facility] [address] [place] [address] Glucose [Mass/Vol] 126 mg/dL Normal [facility] Comment on above: Result Comment: [place] Glucose Reference Range is dependent on time and content of last meal. Glucose of more than 200 mg/dL in a nonstressed, ambulatory subject supports the diagnosis of Diabetes Mellitus. PERFORMED BY: [place] [address] PATHOLOGIST HEAD END DESIZING MACHINE OPERATOR PAULA STEWART M.D. Performed By: #### G LULS #### Point of Care testing , Glucose [Mass/Vol] 161 mg/dL Normal [facility] Comment on above: Result Comment: [place] Glucose Reference Range is dependent on time and content of last meal. Glucose of more than 200 mg/dL in a nonstressed, ambulatory subject supports the diagnosis of Diabetes Mellitus. PERFORMED BY: [place] [address] PATHOLOGIST HEAD END DESIZING MACHINE OPERATOR PAULA STEWART M.D. Performed By: #### G LULS #### Point of Care testing , Glucose [Mass/Vol] 147 mg/dL Normal [facility] Comment on above: Result Comment: [place] Glucose Reference Range is dependent on time and content of last meal. Glucose of more than 200 mg/dL in a nonstressed, ambulatory subject supports the diagnosis of Diabetes Mellitus. PERFORMED BY: [place] [address] PATHOLOGIST HEAD END DESIZING MACHINE OPERATOR PAULA STEWART M.D. Performed By: #### C MP, MG, LIPID #### [place] [id number] [facility] Urinalysison 10-05-2023 Appearance (U) Clear Normal Clear [facility] Comment on above: Order Comment: Name Collection Type:: Clean-Voided Midstream Performed By: #### C MP, MG, LIPID #### [facility] [address] [place] [address] [place] Bilirubin,Urine Negative Normal Negative [facility] Comment on above: Order Comment: Name Collection Type:: Clean-Voided Midstream Performed By: #### C MP, MG, LIPID #### [facility] [address] [place] [address] [place] Color (U) Yellow Normal Yellow [facility] Comment on above: Order Comment: Name Collection Type:: Clean-Voided Midstream Performed By: #### C MP, MG, LIPID #### [facility] [address] Glucose Ql (U) >=1000 High Normal [facility] Comment on above: Order Comment: Name Collection Type:: Clean-Voided Midstream Performed By: #### C MP, MG, LIPID #### [facility] [address] [place] [address] [place] Ketones Ql (U) Negative Normal Negative [facility] Comment on above: Order Comment: Name Collection Type:: Clean-Voided Midstream Performed By: #### C MP, MG, LIPID #### [facility] [address] [place] [address] [place] Leukocyte esterase Test strip Ql (U) Negative Normal Negative [facility] Comment on above: Order Comment: Name Collection Type:: Clean-Voided Midstream Performed By: #### C MP, MG, LIPID #### [facility] [address] [place] [address] [place] Nitrite,Urine Negative Normal Negative [facility] Comment on above: Order Comment: Name Collection Type:: Clean-Voided Midstream Performed By: #### C MP, MG, LIPID #### [facility] [address] [place] [address] [place] Occult Blood,Urine Negative Normal Negative [facility] Comment on above: Order Comment: Name Collection Type:: Clean-Voided Midstream Result Comment: PERF ORMED BY: [address] [place] [address] PATHOLOGIST HEAD END DESIZING MACHINE OPERATOR PAULA STEWART M.D. Performed By: #### C MP, MG, LIPID #### [address] pH (U) 7.0 [pH] Normal 5.0-9.0 [facility] Comment on above: Order Comment: Name Collection Type:: Clean-Voided Midstream Performed By: #### C MP, MG, LIPID #### [address] Protein,Urine Negative Normal Negative [facility] Comment on above: Order Comment: Name Collection Type:: Clean-Voided Midstream Performed By: #### C MP, MG, LIPID #### [address] Specificy [place],Urine 1.023 Normal 1.001-1.030 [facility] Comment on above: Order Comment: Name Collection Type:: Clean-Voided Midstream Performed By: #### C MP, MG, LIPID #### [address] Urobilinogen,Urine Normal Normal Normal [facility] Comment on above: Order Comment: Name Collection Type:: Clean-Voided Midstream Performed By: #### C MP, MG, LIPID #### [address] Glucose Poct Glucometerson 0 10-04-2023 Glucose [Mass/Vol] 126 mg/dL Normal [facility] Comment on above: Result Comment: [place] Glucose Reference Range is dependent on time and content of last meal. Glucose of more than 200 mg/dL in a nonstressed, ambulatory subject supports the diagnosis of Diabetes Mellitus. PERFORMED BY: [address] [place] [address] PATHOLOGIST HEAD END DESIZING MACHINE OPERATOR PAULA STEWART M.D. Performed By: #### C MP, MG, LIPID #### [address] Glucose [Mass/Vol] 171 mg/dL Normal [facility] Comment on above: Result Comment: [place] Glucose Reference Range is dependent on time and content of last meal. Glucose of more than 200 mg/dL in a nonstressed, ambulatory subject supports the diagnosis of Diabetes Mellitus. PERFORMED BY: [place] [address] PATHOLOGIST HEAD END DESIZING MACHINE OPERATOR PAULA STEWART M.D. Performed By: #### G LULS #### Point of Care testing , Commemt1 Glu2: Cleaned Meter Normal [facility] Comment on above: Result Comment: PERF ORMED BY: [place] [address] PATHOLOGIST HEAD END DESIZING MACHINE OPERATOR PAULA STEWART M.D. Performed By: #### C BC, BMP #### [address] Glucose [Mass/Vol] 147 mg/dL Normal [facility] Comment on above: Result Comment: [place] Glucose Reference Range is dependent on time and content of last meal. Glucose of more than 200 mg/dL in a nonstressed, ambulatory subject supports the diagnosis of Diabetes Mellitus. Performed By: #### C BC, BMP #### [address] Glucose [Mass/Vol] 174 mg/dL Normal [facility] Comment on above: Result Comment: [place] Glucose Reference Range is dependent on time and content of last meal. Glucose of more than 200 mg/dL in a nonstressed, ambulatory subject supports the diagnosis of Diabetes Mellitus. PERFORMED BY: [place] [address] PATHOLOGIST HEAD END DESIZING MACHINE OPERATOR PAULA STEWART M.D. Performed By: #### G LULS #### Point of Care testing , Glucose Poct Glucometerson 0 10-03-2023 Glucose [Mass/Vol] 202 mg/dL Normal [facility] Comment on above: Result Comment: [place] Glucose Reference Range is dependent on time and content of last meal. Glucose of more than 200 mg/dL in a nonstressed, ambulatory subject supports the diagnosis of Diabetes Mellitus. PERFORMED BY: [facility] [address] [place] [address] PATHOLOGIST HEAD END DESIZING MACHINE OPERATOR PAULA STEWART M.D. Performed By: #### G LULS #### Point of Care testing , Glucose [Mass/Vol] 178 mg/dL Normal [facility] Comment on above: Result Comment: [facility] Glucose Reference Range is dependent on time and content of last meal. Glucose of more than 200 mg/dL in a nonstressed, ambulatory subject supports the diagnosis of Diabetes Mellitus. PERFORMED BY: [address] [place] [address] PATHOLOGIST HEAD END DESIZING MACHINE OPERATOR PAULA STEWART M.D. Performed By: #### G LULS #### Point of Care testing , Glucose [Mass/Vol] 179 mg/dL Normal [facility] Comment on above: Result Comment: [facility] Glucose Reference Range is dependent on time and content of last meal. Glucose of more than 200 mg/dL in a nonstressed, ambulatory subject supports the diagnosis of Diabetes Mellitus. PERFORMED BY: [address] [place] [address] PATHOLOGIST HEAD END DESIZING MACHINE OPERATOR PAULA STEWART M.D. Performed By: #### G LULS #### Point of Care testing , Glucose Poct Glucometerson 0 10-02-2023 Glucose [Mass/Vol] 198 mg/dL Normal [facility] Comment on above: Result Comment: [facility] Glucose Reference Range is dependent on time and content of last meal. Glucose of more than 200 mg/dL in a nonstressed, ambulatory subject supports the diagnosis of Diabetes Mellitus. PERFORMED BY: [facility] [address] [place] [address] PATHOLOGIST HEAD END DESIZING MACHINE OPERATOR PAULA STEWART M.D. Performed By: #### G LULS #### Point of Care testing , Glucose [Mass/Vol] 174 mg/dL Normal [facility] Comment on above: Result Comment: [place] Glucose Reference Range is dependent on time and content of last meal. Glucose of more than 200 mg/dL in a nonstressed, ambulatory subject supports the diagnosis of Diabetes Mellitus. PERFORMED BY: [place] [address] PATHOLOGIST HEAD END DESIZING MACHINE OPERATOR PAULA STEWART M.D. Performed By: #### G LULS #### Point of Care testing , Commemt1 Glu2: Cleaned Meter Normal [facility] Comment on above: Result Comment: PERF ORMED BY: [place] [address] PATHOLOGIST HEAD END DESIZING MACHINE OPERATOR PAULA STEWART M.D. Performed By: #### C BC, BMP #### [address] Glucose [Mass/Vol] 145 mg/dL Normal [facility] Comment on above: Result Comment: [place] Glucose Reference Range is dependent on time and content of last meal. Glucose of more than 200 mg/dL in a nonstressed, ambulatory subject supports the diagnosis of Diabetes Mellitus. Performed By: #### C BC, BMP #### [address] [address] Glucose [Mass/Vol] 182 mg/dL Normal [facility] Comment on above: Result Comment: [place] Glucose Reference Range is dependent on time and content of last meal. Glucose of more than 200 mg/dL in a nonstressed, ambulatory subject supports the diagnosis of Diabetes Mellitus. PERFORMED BY: [place] [address] PATHOLOGIST HEAD END DESIZING MACHINE OPERATOR PAULA STEWART M.D. Performed By: #### C BC, BMP #### [place] [id number] [facility] Basic Metabolic Panelon 09-04 Anion gap [Moles/Vol] 13.4 mmol/L Normal 6.0-15.0 [facility] Comment on above: Order Comment: pt in therapy Performed By: #### C MP, MG, LIPID #### [place] [id number] [facility] Calcium [Mass/Vol] 9.2 mg/dL Normal 8.6-10.3 [facility] Comment on above: Order Comment: pt in therapy Performed By: #### C MP, MG, LIPID #### [facility] [address] Chloride [Moles/Vol] 103 mmol/L Normal 98-107 [facility] Comment on above: Order Comment: pt in therapy Performed By: #### C MP, MG, LIPID #### [address] CO2 [Moles/Vol] 22.7 mmol/L Normal 21.0-31.0 [facility] Comment on above: Order Comment: pt in therapy Performed By: #### C MP, MG, LIPID #### [address] Creatinine [Mass/Vol] 0.95 mg/dL Normal 0.70-1.30 [facility] Comment on above: Order Comment: pt in therapy Performed By: #### C MP, MG, LIPID #### [place] [address] [place] Creatinine Clr Calc Pharmacy 97.65 Normal [facility] Comment on above: Order Comment: pt in therapy Result Comment: PERF ORMED BY: [place] [address] PATHOLOGIST HEAD END DESIZING MACHINE OPERATOR PAULA STEWART M.D. Performed By: #### C MP, MG, LIPID #### [address] GFR/1.73 sq M.predicted MDRD (S/P/Bld) [Vol rate/Area] mL/min/{1.73_m2} Normal [facility] Comment on above: Order Comment: pt in therapy Performed By: #### C MP, MG, LIPID #### [address] Glucose [Mass/Vol] 206 mg/dL High 70-100 [facility] Comment on above: Order Comment: pt in therapy Result Comment: [place] Glucose Reference Range is dependent on time and content of last meal. Glucose of more than 200 mg/dL in a nonstressed, ambulatory subject supports the diagnosis of Diabetes Mellitus. ADA recommended reference range Performed By: #### C MP, MG, LIPID #### [address] Potassium [Moles/Vol] 4.1 mmol/L Normal 3.5-5.1 [facility] Comment on above: Order Comment: pt in therapy Performed By: #### C MP, MG, LIPID #### [address] Sodium [Moles/Vol] 135 mmol/L Low 136-145 [facility] Comment on above: Order Comment: pt in therapy Performed By: #### C MP, MG, LIPID #### [address] Urea nitrogen [Mass/Vol] 18 mg/dL Normal 7-25 [facility] Comment on above: Order Comment: pt in therapy Performed By: #### C MP, MG, LIPID #### [address] Complete Blood Count Auto Di ffon 10-01-2023 Basophils (Bld) [#/Vol] 0.0 10*3/uL Normal 0.0-0.2 [facility] Comment on above: Order Comment: pt in therapy Result Comment: PERF ORMED BY: [place] [address] PATHOLOGIST HEAD END DESIZING MACHINE OPERATOR PAULA STEWART M.D. Performed By: #### C MP, MG, LIPID #### [address] Basophils/100 WBC (Bld) 0.2 % Normal . [facility] Comment on above: Order Comment: pt in therapy Performed By: #### C MP, MG, LIPID #### [address] Eosinophils (Bld) [#/Vol] 0.3 10*3/uL Normal 0.0-0.45 [facility] Comment on above: Order Comment: pt in therapy Performed By: #### C MP, MG, LIPID #### [address] Eosinophils/100 WBC (Bld) 3.3 % Normal . [facility] Comment on above: Order Comment: pt in therapy Performed By: #### C MP, MG, LIPID #### [address] Erythrocyte distribution width (RBC) [Ratio] 14.7 % Normal 12.0-14.8 [facility] Comment on above: Order Comment: pt in therapy Performed By: #### C MP, MG, LIPID #### [address] Hematocrit (Bld) [Volume fraction] 38.8 % Normal 38.8-50.0 [facility] Comment on above: Order Comment: pt in therapy Performed By: #### C MP, MG, LIPID #### [address] Hemoglobin (Bld) [Mass/Vol] 13.1 g/dL Normal 13.0-17.0 [facility] Comment on above: Order Comment: pt in therapy Performed By: #### C MP, MG, LIPID #### [address] Lymphocytes (Bld) [#/Vol] 1.4 10*3/uL Normal 1.00-4.8 [facility] Comment on above: Order Comment: pt in therapy Performed By: #### C MP, MG, LIPID #### [address] Lymphocytes/100 WBC (Bld) 14.3 % Normal . [facility] Comment on above: Order Comment: pt in therapy Performed By: #### C MP, MG, LIPID #### [address] MCH (RBC) [Entitic mass] 30.3 pg Normal 27.5-35.2 [facility] Comment on above: Order Comment: pt in therapy Performed By: #### C MP, MG, LIPID #### [address] MCV (RBC) [Entitic vol] 89.6 fL Normal 83.5-101 [facility] Comment on above: Order Comment: pt in therapy Performed By: #### C MP, MG, LIPID #### [address] Mean Corpuscular HGB Conc 33.8 g/dL Normal 32.5-35.6 [facility] Comment on above: Order Comment: pt in therapy Performed By: #### C MP, MG, LIPID #### [address] Monocytes (Bld) [#/Vol] 0.9 10*3/uL High 0.0-0.8 [facility] Comment on above: Order Comment: pt in therapy Performed By: #### C MP, MG, LIPID #### [address] Monocytes/100 WBC (Bld) 8.7 % Normal . [facility] Comment on above: Order Comment: pt in therapy Performed By: #### C MP, MG, LIPID #### [address] Neutrophils (Bld) [#/Vol] 7.2 10*3/uL Normal 1.8-7.7 [facility] Comment on above: Order Comment: pt in therapy Performed By: #### C MP, MG, LIPID #### [address] Neutrophils/100 WBC (Bld) 73.5 % Normal . [facility] Comment on above: Order Comment: pt in therapy Performed By: #### C MP, MG, LIPID #### [address] NRBC% 0.2 /100{WBC} Normal 0-0.5 [facility] Comment on above: Order Comment: pt in therapy Performed By: #### C MP, MG, LIPID #### [address] [address] [place] Platelet mean volume (Bld) [Entitic vol] 6.8 fL Normal 6.6-10.1 [facility] Comment on above: Order Comment: pt in therapy Performed By: #### C MP, MG, LIPID #### [facility] [address] [place] [id number] [facility] Platelets (Bld) [#/Vol] 442 10*3/uL Normal 150-450 [facility] Comment on above: Order Comment: pt in therapy Performed By: #### C MP, MG, LIPID #### [facility] [address] RBC (Bld) [#/Vol] 4.33 10*6/uL Normal 3.90-5.60 [facility] Comment on above: Order Comment: pt in therapy Performed By: #### C MP, MG, LIPID #### [facility] [address] [place] [address] WBC (Bld) [#/Vol] 9.9 10*3/uL Normal 4.1-10.5 [facility] Comment on above: Order Comment: pt in therapy Performed By: #### C MP, MG, LIPID #### [facility] [address] [place] [address] Glucose Poct Glucometerson 0 10-01-2023 Glucose [Mass/Vol] 216 mg/dL Normal [facility] Comment on above: Result Comment: [facility] Glucose Reference Range is dependent on time and content of last meal. Glucose of more than 200 mg/dL in a nonstressed, ambulatory subject supports the diagnosis of Diabetes Mellitus. PERFORMED BY: [place] [address] PATHOLOGIST HEAD END DESIZING MACHINE OPERATOR PAULA STEWART M.D. Performed By: #### G LULS #### Point of Care testing , Commemt1 Glu2: Cleaned Meter Normal [facility] Comment on above: Result Comment: PERF ORMED BY: [place] [address] PATHOLOGIST HEAD END DESIZING MACHINE OPERATOR PAULA STEWART M.D. Performed By: #### C MP, MG, LIPID #### [facility] [address] Glucose [Mass/Vol] 169 mg/dL Normal [facility] Comment on above: Result Comment: [place] Glucose Reference Range is dependent on time and content of last meal. Glucose of more than 200 mg/dL in a nonstressed, ambulatory subject supports the diagnosis of Diabetes Mellitus. Performed By: #### C MP, MG, LIPID #### [facility] [address] Commemt1 Glu2: Cleaned Meter Normal [facility] Comment on above: Result Comment: PERF ORMED BY: [place] [address] PATHOLOGIST HEAD END DESIZING MACHINE OPERATOR PAULA STEWART M.D. Performed By: #### C BC, BMP #### [address] Glucose [Mass/Vol] 135 mg/dL Normal [facility] Comment on above: Result Comment: [place] Glucose Reference Range is dependent on time and content of last meal. Glucose of more than 200 mg/dL in a nonstressed, ambulatory subject supports the diagnosis of Diabetes Mellitus. Performed By: #### C BC, BMP #### [facility] [address] Glucose [Mass/Vol] 168 mg/dL Normal [facility] Comment on above: Result Comment: [place] Glucose Reference Range is dependent on time and content of last meal. Glucose of more than 200 mg/dL in a nonstressed, ambulatory subject supports the diagnosis of Diabetes Mellitus. PERFORMED BY: [place] [address] PATHOLOGIST HEAD END DESIZING MACHINE OPERATOR PAULA STEWART M.D. Performed By: #### C MP, MG, LIPID #### [place] [id number] [facility] Glucose Poct Glucometerson 0 09-30-2023 Glucose [Mass/Vol] 254 mg/dL Normal [facility] Comment on above: Result Comment: [place] Glucose Reference Range is dependent on time and content of last meal. Glucose of more than 200 mg/dL in a nonstressed, ambulatory subject supports the diagnosis of Diabetes Mellitus. PERFORMED BY: [place] [address] PATHOLOGIST HEAD END DESIZING MACHINE OPERATOR PAULA STEWART M.D. Performed By: #### C MP, MG, LIPID #### [facility] [address] [place] [address] Glucose [Mass/Vol] 128 mg/dL Normal [facility] Comment on above: Result Comment: [place] Glucose Reference Range is dependent on time and content of last meal. Glucose of more than 200 mg/dL in a nonstressed, ambulatory subject supports the diagnosis of Diabetes Mellitus. PERFORMED BY: [place] [address] PATHOLOGIST HEAD END DESIZING MACHINE OPERATOR PAULA STEWART M.D. Performed By: #### C BC, BMP #### [address] Glucose [Mass/Vol] 187 mg/dL Normal [facility] Comment on above: Result Comment: [place] Glucose Reference Range is dependent on time and content of last meal. Glucose of more than 200 mg/dL in a nonstressed, ambulatory subject supports the diagnosis of Diabetes Mellitus. PERFORMED BY: [place] [address] PATHOLOGIST HEAD END DESIZING MACHINE OPERATOR PAULA STEWART M.D. Performed By: #### G LULS #### Point of Care testing , Glucose [Mass/Vol] 152 mg/dL Normal [facility] Comment on above: Result Comment: [place] Glucose Reference Range is dependent on time and content of last meal. Glucose of more than 200 mg/dL in a nonstressed, ambulatory subject supports the diagnosis of Diabetes Mellitus. PERFORMED BY: [place] [address] PATHOLOGIST HEAD END DESIZING MACHINE OPERATOR PAULA STEWART M.D. Performed By: #### G LULS #### Point of Care testing , Basic Metabolic Panelon 2 Anion gap [Moles/Vol] 12.2 mmol/L Normal 6.0-15.0 [facility] Comment on above: Performed By: #### C BC, BMP #### [address] Calcium [Mass/Vol] 8.9 mg/dL Normal 8.6-10.3 [facility] Comment on above: Performed By: #### C BC, BMP #### [address] Chloride [Moles/Vol] 101 mmol/L Normal 98-107 [facility] Comment on above: Performed By: #### C BC, BMP #### [address] CO2 [Moles/Vol] 26.8 mmol/L Normal 21.0-31.0 [facility] Comment on above: Performed By: #### C BC, BMP #### [address] Creatinine [Mass/Vol] 0.92 mg/dL Normal 0.70-1.30 [facility] Comment on above: Performed By: #### C SOBEIDA, BMP #### [place] [address] [place] Creatinine Clr Calc Pharmacy 100.88 Normal [facility] Comment on above: Result Comment: PERF ORMED BY: [place] [address] PATHOLOGIST HEAD END DESIZING MACHINE OPERATOR PAULA STEWART M.D. Performed By: #### C BC, BMP #### [place] [address] [place] GFR/1.73 sq M.predicted MDRD (S/P/Bld) [Vol rate/Area] mL/min/{1.73_m2} Normal [facility] Comment on above: Performed By: #### C BC, BMP #### [place] [address] [place] Glucose [Mass/Vol] 233 mg/dL High 70-100 [facility] Comment on above: Result Comment: [facility] Glucose Reference Range is dependent on time and content of last meal. Glucose of more than 200 mg/dL in a nonstressed, ambulatory subject supports the diagnosis of Diabetes Mellitus. ADA recommended reference range Performed By: #### C BC, BMP #### [address] Potassium [Moles/Vol] 4.0 mmol/L Normal 3.5-5.1 [facility] Comment on above: Performed By: #### C BC, BMP #### [address] Sodium [Moles/Vol] 136 mmol/L Normal 136-145 [facility] Comment on above: Performed By: #### C BC, BMP #### [address] Urea nitrogen [Mass/Vol] 19 mg/dL Normal 7-25 [facility] Comment on above: Performed By: #### C BC, BMP #### [address] Complete Blood Count Auto Di ffon 09-29-2023 Basophils (Bld) [#/Vol] 0.1 10*3/uL Normal 0.0-0.2 [facility] Comment on above: Result Comment: PERF ORMED BY: [place] [address] PATHOLOGIST HEAD END DESIZING MACHINE OPERATOR PAULA STEWART M.D. Performed By: #### C BC, BMP #### [place] [address] [place] Basophils/100 WBC (Bld) 0.6 % Normal . [facility] Comment on above: Performed By: #### C BC, BMP #### [place] [address] [place] Eosinophils (Bld) [#/Vol] 0.3 10*3/uL Normal 0.0-0.45 [facility] Comment on above: Performed By: #### C BC, BMP #### [place] [address] [place] Eosinophils/100 WBC (Bld) 2.5 % Normal . [facility] Comment on above: Performed By: #### C BC, BMP #### [address] Erythrocyte distribution width (RBC) [Ratio] 15.1 % High 12.0-14.8 [facility] Comment on above: Performed By: #### C BC, BMP #### [address] Hematocrit (Bld) [Volume fraction] 36.0 % Low 38.8-50.0 [facility] Comment on above: Performed By: #### C BC, BMP #### [address] Hemoglobin (Bld) [Mass/Vol] 12.3 g/dL Low 13.0-17.0 [facility] Comment on above: Performed By: #### C BC, BMP #### [address] Lymphocytes (Bld) [#/Vol] 1.8 10*3/uL Normal 1.00-4.8 [facility] Comment on above: Performed By: #### C BC, BMP #### [address] Lymphocytes/100 WBC (Bld) 17.2 % Normal . [facility] Comment on above: Performed By: #### C BC, BMP #### [address] MCH (RBC) [Entitic mass] 30.6 pg Normal 27.5-35.2 [facility] Comment on above: Performed By: #### C BC, BMP #### [address] MCV (RBC) [Entitic vol] 89.8 fL Normal 83.5-101 [facility] Comment on above: Performed By: #### C BC, BMP #### [address] Mean Corpuscular HGB Conc 34.1 g/dL Normal 32.5-35.6 [facility] Comment on above: Performed By: #### C BC, BMP #### [address] Monocytes (Bld) [#/Vol] 1.0 10*3/uL High 0.0-0.8 [facility] Comment on above: Performed By: #### C BC, BMP #### [address] Monocytes/100 WBC (Bld) 9.6 % Normal . [facility] Comment on above: Performed By: #### C BC, BMP #### [address] Neutrophils (Bld) [#/Vol] 7.3 10*3/uL Normal 1.8-7.7 [facility] Comment on above: Performed By: #### C BC, BMP #### [address] Neutrophils/100 WBC (Bld) 70.1 % Normal . [facility] Comment on above: Performed By: #### C BC, BMP #### [address] NRBC% 0.0 /100{WBC} Normal 0-0.5 [facility] Comment on above: Performed By: #### C BC, BMP #### [address] Platelet mean volume (Bld) [Entitic vol] 7.4 fL Normal 6.6-10.1 [facility] Comment on above: Performed By: #### C BC, BMP #### [place] [address] [place] Platelets (Bld) [#/Vol] 367 10*3/uL Normal 150-450 [facility] Comment on above: Performed By: #### C BC, BMP #### [place] [address] [place] RBC (Bld) [#/Vol] 4.01 10*6/uL Normal 3.90-5.60 [facility] Comment on above: Performed By: #### C BC, BMP #### [address] WBC (Bld) [#/Vol] 10.4 10*3/uL Normal 4.1-10.5 [facility] Comment on above: Performed By: #### C BC, BMP #### [address] Glucose Poct Glucometerson 0 09-29-2023 Glucose [Mass/Vol] 281 mg/dL Normal [facility] Comment on above: Result Comment: [place] Glucose Reference Range is dependent on time and content of last meal. Glucose of more than 200 mg/dL in a nonstressed, ambulatory subject supports the diagnosis of Diabetes Mellitus. PERFORMED BY: [place] [address] PATHOLOGIST HEAD END DESIZING MACHINE OPERATOR PAULA STEWART M.D. Performed By: #### C MP, MG, LIPID #### [address] Glucose [Mass/Vol] 183 mg/dL Normal [facility] Comment on above: Result Comment: [place] Glucose Reference Range is dependent on time and content of last meal. Glucose of more than 200 mg/dL in a nonstressed, ambulatory subject supports the diagnosis of Diabetes Mellitus. PERFORMED BY: [place] [address] PATHOLOGIST HEAD END DESIZING MACHINE OPERATOR PAULA STEWART M.D. Performed By: #### C MP, MG, LIPID #### [address] Commemt1 Glu2: Cleaned Meter Normal [facility] Comment on above: Result Comment: PERF ORMED BY: [place] [address] PATHOLOGIST HEAD END DESIZING MACHINE OPERATOR PAULA STEWART M.D. Performed By: #### C MP, MG, LIPID #### [address] Glucose [Mass/Vol] 161 mg/dL Normal [facility] Comment on above: Result Comment: [place] Glucose Reference Range is dependent on time and content of last meal. Glucose of more than 200 mg/dL in a nonstressed, ambulatory subject supports the diagnosis of Diabetes Mellitus. Performed By: #### C MP, MG, LIPID #### [address] Glucose [Mass/Vol] 208 mg/dL Normal [facility] Comment on above: Result Comment: [place] Glucose Reference Range is dependent on time and content of last meal. Glucose of more than 200 mg/dL in a nonstressed, ambulatory subject supports the diagnosis of Diabetes Mellitus. PERFORMED BY: [place] [address] PATHOLOGIST HEAD END DESIZING MACHINE OPERATOR PAULA STEWART M.D. Performed By: #### C MP, MG, LIPID #### [address] Complete Blood Count Auto Di ffon 09-28-2023 Basophils (Bld) [#/Vol] 0.1 10*3/uL Normal 0.0-0.2 [facility] Comment on above: Result Comment: PERF ORMED BY: [place] [address] PATHOLOGIST HEAD END DESIZING MACHINE OPERATOR PAULA STEWART M.D. Performed By: #### G LULS #### Point of Care testing , Basophils/100 WBC (Bld) 0.5 % Normal . [facility] Comment on above: Performed By: #### G LULS #### Point of Care testing , Eosinophils (Bld) [#/Vol] 0.2 10*3/uL Normal 0.0-0.45 [facility] Comment on above: Performed By: #### G LULS #### Point of Care testing , Eosinophils/100 WBC (Bld) 1.8 % Normal . [facility] Comment on above: Performed By: #### G LULS #### Point of Care testing , Erythrocyte distribution width (RBC) [Ratio] 15.0 % High 12.0-14.8 [facility] Comment on above: Performed By: #### G LULS #### Point of Care testing , Hematocrit (Bld) [Volume fraction] 34.0 % Low 38.8-50.0 [facility] Comment on above: Performed By: #### G LULS #### Point of Care testing , Hemoglobin (Bld) [Mass/Vol] 11.4 g/dL Low 13.0-17.0 [facility] Comment on above: Performed By: #### G LULS #### Point of Care testing , Lymphocytes (Bld) [#/Vol] 2.2 10*3/uL Normal 1.00-4.8 [facility] Comment on above: Performed By: #### G LULS #### Point of Care testing , Lymphocytes/100 WBC (Bld) 17.7 % Normal . [facility] Comment on above: Performed By: #### G LULS #### Point of Care testing , MCH (RBC) [Entitic mass] 30.2 pg Normal 27.5-35.2 [facility] Comment on above: Performed By: #### G LULS #### Point of Care testing , MCV (RBC) [Entitic vol] 90.2 fL Normal 83.5-101 [facility] Comment on above: Performed By: #### G LULS #### Point of Care testing , Mean Corpuscular HGB Conc 33.5 g/dL Normal 32.5-35.6 [facility] Comment on above: Performed By: #### G LULS #### Point of Care testing , Monocytes (Bld) [#/Vol] 1.5 10*3/uL High 0.0-0.8 [facility] Comment on above: Performed By: #### G LULS #### Point of Care testing , Monocytes/100 WBC (Bld) 11.8 % Normal . [facility] Comment on above: Performed By: #### G LULS #### Point of Care testing , Neutrophils (Bld) [#/Vol] 8.4 10*3/uL High 1.8-7.7 [facility] Comment on above: Performed By: #### G LULS #### Point of Care testing , Neutrophils/100 WBC (Bld) 68.2 % Normal . [facility] Comment on above: Performed By: #### G LULS #### Point of Care testing , NRBC% 0.1 /100{WBC} Normal 0-0.5 [facility] Comment on above: Performed By: #### G LULS #### Point of Care testing , Platelet mean volume (Bld) [Entitic vol] 7.3 fL Normal 6.6-10.1 [facility] Comment on above: Performed By: #### G LULS #### Point of Care testing , Platelets (Bld) [#/Vol] 326 10*3/uL Normal 150-450 [facility] Comment on above: Performed By: #### G LULS #### Point of Care testing , RBC (Bld) [#/Vol] 3.77 10*6/uL Low 3.90-5.60 [facility] Comment on above: Performed By: #### G LULS #### Point of Care testing , WBC (Bld) [#/Vol] 12.3 10*3/uL High 4.1-10.5 [facility] Comment on above: Performed By: #### G LULS #### Point of Care testing , Glucose Poct Glucometerson 0 09-28-2023 Glucose [Mass/Vol] 182 mg/dL Normal [facility] Comment on above: Result Comment: [facility] Glucose Reference Range is dependent on time and content of last meal. Glucose of more than 200 mg/dL in a nonstressed, ambulatory subject supports the diagnosis of Diabetes Mellitus. PERFORMED BY: [address] [place] [address] PATHOLOGIST HEAD END DESIZING MACHINE OPERATOR PAULA STEWART M.D. Performed By: #### G LULS #### Point of Care testing , Glucose [Mass/Vol] 257 mg/dL Normal [facility] Comment on above: Result Comment: [facility] Glucose Reference Range is dependent on time and content of last meal. Glucose of more than 200 mg/dL in a nonstressed, ambulatory subject supports the diagnosis of Diabetes Mellitus. PERFORMED BY: [place] [phone] PATHOLOGIST HEAD END DESIZING MACHINE OPERATOR PAULA STEWART M.D. Performed By: #### G LULS #### Point of Care testing , Commemt1 Glu2: Cleaned Meter Normal [facility] Comment on above: Result Comment: PERF ORMED BY: [place] [phone] PATHOLOGIST HEAD END DESIZING MACHINE OPERATOR PAULA STEWART M.D. Performed By: #### C BC, BMP #### [address] Glucose [Mass/Vol] 175 mg/dL Normal [facility] Comment on above: Result Comment: [place] [facility] Glucose Reference Range is dependent on time and content of last meal. Glucose of more than 200 mg/dL in a nonstressed, ambulatory subject supports the diagnosis of Diabetes Mellitus. Performed By: #### C BC, BMP #### [address] Commemt1 Glu2: Cleaned Meter Normal [facility] Comment on above: Result Comment: PERF ORMED BY: [place] [phone] PATHOLOGIST HEAD END DESIZING MACHINE OPERATOR PAULA STEWART M.D. Performed By: #### G LULS #### Point of Care testing , Glucose [Mass/Vol] 174 mg/dL Normal [facility] Comment on above: Result Comment: [place] [facility] Glucose Reference Range is dependent on time and content of last meal. Glucose of more than 200 mg/dL in a nonstressed, ambulatory subject supports the diagnosis of Diabetes Mellitus. Performed By: #### G LULS #### Point of Care testing , Comprehensive Metabolic Pane néstor 09-27-2023 Albumin [Mass/Vol] 4.2 g/dL Normal 3.5-5.7 [facility] Comment on above: Performed By: #### C MP, MG, LIPID #### [address] Albumin/Globulin [Mass ratio] 1.1 {ratio} Normal [facility] Comment on above: Performed By: #### C MP, MG, LIPID #### [address] ALP [Catalytic activity/Vol] 40 U/L Normal 34-104 [facility] Comment on above: Performed By: #### C MP, MG, LIPID #### [address] ALT [Catalytic activity/Vol] 24 U/L Normal 7-52 [facility] Comment on above: Performed By: #### C MP, MG, LIPID #### [address] Anion gap [Moles/Vol] 14.1 mmol/L Normal 6.0-15.0 [facility] Comment on above: Performed By: #### C MP, MG, LIPID #### [address] AST [Catalytic activity/Vol] 15 U/L Normal 13-39 [facility] Comment on above: Performed By: #### C MP, MG, LIPID #### [address] Bilirubin [Mass/Vol] 0.8 mg/dL Normal 0.3-1.0 [facility] Comment on above: Performed By: #### C MP, MG, LIPID #### [address] Calcium [Mass/Vol] 9.4 mg/dL Normal 8.6-10.3 [facility] Comment on above: Performed By: #### C MP, MG, LIPID #### [place] [address] [place] Chloride [Moles/Vol] 101 mmol/L Normal 98-107 [facility] Comment on above: Performed By: #### C MP, MG, LIPID #### [place] [address] [place] CO2 [Moles/Vol] 23.9 mmol/L Normal 21.0-31.0 [facility] Comment on above: Performed By: #### C MP, MG, LIPID #### [address] Creatinine [Mass/Vol] 0.88 mg/dL Normal 0.70-1.30 [facility] Comment on above: Performed By: #### C MP, MG, LIPID #### [place] [address] [place] Creatinine Clr Calc Pharmacy 105.98 Normal [facility] Comment on above: Performed By: #### C MP, MG, LIPID #### [place] [address] [place] GFR/1.73 sq M.predicted MDRD (S/P/Bld) [Vol rate/Area] mL/min/{1.73_m2} Normal [facility] Comment on above: Performed By: #### C MP, MG, LIPID #### [address] Globulin (S) [Mass/Vol] 3.7 g/dL Normal [facility] Comment on above: Performed By: #### C MP, MG, LIPID #### [address] Glucose [Mass/Vol] 140 mg/dL High 70-100 [facility] Comment on above: Result Comment: [facility] Glucose Reference Range is dependent on time and content of last meal. Glucose of more than 200 mg/dL in a nonstressed, ambulatory subject supports the diagnosis of Diabetes Mellitus. ADA recommended reference range Performed By: #### C MP, MG, LIPID #### [address] Potassium [Moles/Vol] 4.0 mmol/L Normal 3.5-5.1 [facility] Comment on above: Performed By: #### C MP, MG, LIPID #### [address] Protein [Mass/Vol] 7.9 g/dL Normal 6.4-8.9 [facility] Comment on above: Performed By: #### C MP, MG, LIPID #### [facility] [address] Sodium [Moles/Vol] 135 mmol/L Low 136-145 [facility] Comment on above: Performed By: #### C MP, MG, LIPID #### [facility] [address] Urea nitrogen [Mass/Vol] 21 mg/dL Normal 7-25 [facility] Comment on above: Performed By: #### C MP, MG, LIPID #### [facility] [address] Glucose Poct Glucometerson 0 09-27-2023 Commemt1 Glu2: Cleaned Meter Normal [facility] Comment on above: Result Comment: PERF ORMED BY: [place] [address] PATHOLOGIST HEAD END DESIZING MACHINE OPERATOR PAULA STEWART M.D. Performed By: #### G LULS #### Point of Care testing , Glucose [Mass/Vol] 261 mg/dL Normal [facility] Comment on above: Result Comment: [place] Glucose Reference Range is dependent on time and content of last meal. Glucose of more than 200 mg/dL in a nonstressed, ambulatory subject supports the diagnosis of Diabetes Mellitus. Performed By: #### G LULS #### Point of Care testing , Glucose [Mass/Vol] 147 mg/dL Normal [facility] Comment on above: Result Comment: [place] Glucose Reference Range is dependent on time and content of last meal. Glucose of more than 200 mg/dL in a nonstressed, ambulatory subject supports the diagnosis of Diabetes Mellitus. PERFORMED BY: [place] [address] PATHOLOGIST HEAD END DESIZING MACHINE OPERATOR PAULA STEWART M.D. Performed By: #### C MP, MG, LIPID #### [place] [id number] [facility] Glucose [Mass/Vol] 153 mg/dL Normal [facility] Comment on above: Result Comment: [place] Glucose Reference Range is dependent on time and content of last meal. Glucose of more than 200 mg/dL in a nonstressed, ambulatory subject supports the diagnosis of Diabetes Mellitus. PERFORMED BY: [place] [address] PATHOLOGIST HEAD END DESIZING MACHINE OPERATOR PAULA STEWART M.D. Performed By: #### C MP, MG, LIPID #### [address] Glucose [Mass/Vol] 161 mg/dL Normal [facility] Comment on above: Result Comment: [place] Glucose Reference Range is dependent on time and content of last meal. Glucose of more than 200 mg/dL in a nonstressed, ambulatory subject supports the diagnosis of Diabetes Mellitus. PERFORMED BY: [place] [address] PATHOLOGIST HEAD END DESIZING MACHINE OPERATOR PAULA STEWART M.D. Performed By: #### G LULS #### Point of Care testing , Prealbuminon 09-27-2023 Prealbumin [Mass/Vol] 16.2 mg/dL Low 17.0-34.0 [facility] Comment on above: Result Comment: PERF ORMED BY: [place] [address] PATHOLOGIST HEAD END DESIZING MACHINE OPERATOR PAULA STEWART M.D. Performed By: #### C MP, MG, LIPID #### [address] Scan and CBCon 09-27-2023 Basophils (Bld) [#/Vol] 0.1 10*3/uL Normal 0.0-0.2 [facility] Comment on above: Performed By: #### C MP, MG, LIPID #### [address] Basophils/100 WBC (Bld) 0.3 % Normal . [facility] Comment on above: Performed By: #### C MP, MG, LIPID #### [address] Eosinophils (Bld) [#/Vol] 0.1 10*3/uL Normal 0.0-0.45 [facility] Comment on above: Performed By: #### C MP, MG, LIPID #### [address] Eosinophils/100 WBC (Bld) 0.7 % Normal . [facility] Comment on above: Performed By: #### C MP, MG, LIPID #### [address] Erythrocyte distribution width (RBC) [Ratio] 14.5 % Normal 12.0-14.8 [facility] Comment on above: Performed By: #### C MP, MG, LIPID #### [address] Hematocrit (Bld) [Volume fraction] 37.1 % Low 38.8-50.0 [facility] Comment on above: Performed By: #### C MP, MG, LIPID #### [address] Hemoglobin (Bld) [Mass/Vol] 12.5 g/dL Low 13.0-17.0 [facility] Comment on above: Performed By: #### C MP, MG, LIPID #### [address] Lymphocytes (Bld) [#/Vol] 1.7 10*3/uL Normal 1.00-4.8 [facility] Comment on above: Performed By: #### C MP, MG, LIPID #### [address] Lymphocytes/100 WBC (Bld) 11.2 % Normal . [facility] Comment on above: Performed By: #### C MP, MG, LIPID #### [address] MCH (RBC) [Entitic mass] 30.1 pg Normal 27.5-35.2 [facility] Comment on above: Performed By: #### C MP, MG, LIPID #### [address] MCV (RBC) [Entitic vol] 89.8 fL Normal 83.5-101 [facility] Comment on above: Performed By: #### C MP, MG, LIPID #### [address] Mean Corpuscular HGB Conc 33.6 g/dL Normal 32.5-35.6 [facility] Comment on above: Performed By: #### C MP, MG, LIPID #### [address] Monocytes (Bld) [#/Vol] 2.0 10*3/uL High 0.0-0.8 [facility] Comment on above: Performed By: #### C MP, MG, LIPID #### [address] Monocytes/100 WBC (Bld) 12.9 % Normal . [facility] Comment on above: Performed By: #### C MP, MG, LIPID #### [address] Neutrophils (Bld) [#/Vol] 11.4 10*3/uL High 1.8-7.7 [facility] Comment on above: Performed By: #### C MP, MG, LIPID #### [address] Neutrophils/100 WBC (Bld) 74.9 % Normal . [facility] Comment on above: Performed By: #### C MP, MG, LIPID #### [address] NRBC% 0.0 /100{WBC} Normal 0-0.5 [facility] Comment on above: Performed By: #### C MP, MG, LIPID #### [address] Platelet Estimate Normal Normal Normal [facility] Comment on above: Performed By: #### C MP, MG, LIPID #### [address] Platelet mean volume (Bld) [Entitic vol] 7.4 fL Normal 6.6-10.1 [facility] Comment on above: Performed By: #### C MP, MG, LIPID #### [address] Platelet Morphology Normal Normal Normal [facility] Comment on above: Result Comment: PERF ORMED BY: [place] [address] PATHOLOGIST HEAD END DESIZING MACHINE OPERATOR PAULA STEWART M.D. Performed By: #### C MP, MG, LIPID #### [address] Platelets (Bld) [#/Vol] 377 10*3/uL Normal 150-450 [facility] Comment on above: Performed By: #### C MP, MG, LIPID #### [address] RBC (Bld) [#/Vol] 4.14 10*6/uL Normal 3.90-5.60 [facility] Comment on above: Performed By: #### C MP, MG, LIPID #### [address] RBC morphology finding Nom (Bld) Normal Normal Normal [facility] Comment on above: Performed By: #### C MP, MG, LIPID #### [address] WBC (Bld) [#/Vol] 15.2 10*3/uL High 4.1-10.5 [facility] Comment on above: Performed By: #### C MP, MG, LIPID #### [address] Urinalysison 09-27-2023 Appearance (U) Clear Normal Clear [facility] Comment on above: Order Comment: Name Collection Type:: Straight Catheter Performed By: #### G LULS #### Point of Care testing , Bilirubin,Urine Negative Normal Negative [facility] Comment on above: Order Comment: Name Collection Type:: Straight Catheter Performed By: #### G LULS #### Point of Care testing , Color (U) Yellow Normal Yellow [facility] Comment on above: Order Comment: Name Collection Type:: Straight Catheter Performed By: #### G LULS #### Point of Care testing , Glucose Ql (U) >=1000 High Normal [facility] Comment on above: Order Comment: Name Collection Type:: Straight Catheter Performed By: #### G LULS #### Point of Care testing , Ketones Ql (U) Negative Normal Negative [facility] Comment on above: Order Comment: Name Collection Type:: Straight Catheter Performed By: #### G LULS #### Point of Care testing , Leukocyte esterase Test strip Ql (U) Negative Normal Negative [facility] Comment on above: Order Comment: Name Collection Type:: Straight Catheter Performed By: #### G LULS #### Point of Care testing , Nitrite,Urine Negative Normal Negative [facility] Comment on above: Order Comment: Name Collection Type:: Straight Catheter Performed By: #### G LULS #### Point of Care testing , Occult Blood,Urine Negative Normal Negative [facility] Comment on above: Order Comment: Name Collection Type:: Straight Catheter Result Comment: PERF ORMED BY: [facility] [address] [place] [address] PATHOLOGIST HEAD END DESIZING MACHINE OPERATOR PAULA STEWART M.D. Performed By: #### G LULS #### Point of Care testing , pH (U) 5.5 [pH] Normal 5.0-9.0 [facility] Comment on above: Order Comment: Name Collection Type:: Straight Catheter Performed By: #### G LULS #### Point of Care testing , Protein,Urine Negative Normal Negative [facility] Comment on above: Order Comment: Name Collection Type:: Straight Catheter Performed By: #### G LULS #### Point of Care testing , Specificy [place],Urine 1.012 Normal 1.001-1.030 [facility] Comment on above: Order Comment: Name Collection Type:: Straight Catheter Performed By: #### G LULS #### Point of Care testing , Urobilinogen,Urine Normal Normal Normal [facility] Comment on above: Order Comment: Name Collection Type:: Straight Catheter Performed By: #### G ELLE #### Point of Care testing , CBC AND AUTO DIFFon 09-26-19 ABSOLUTE BASOPHIL 0.1 X10E9/L Normal 0.0-0.2 [facility] Comment on above: Performed By: #### C BCA, 60942-7, 2776-, 24276-0, PINR #### [facility] ([id number]) [address], [address] [place] [address] ABSOLUTE NEUTROPHIL 7.4 X10E9/L High 1.5-6.6 [facility] Comment on above: Performed By: #### C BCA, 46518-0, 2776-, 76188-1, PINR #### [facility] ([id number]) [address], [address] [place] [address] Basophils/100 WBC (Bld) 0.6 % Normal [facility] Comment on above: Performed By: #### C BCA, , 2776-, 64965-4, PINR #### [facility] ([id number]) [address], [address] [place] [address] Eosinophils (Bld) [#/Vol] 0.2 10*3/uL Normal 0.0-0.4 [facility] Comment on above: Performed By: #### C BCA, 01459-5, 2776-, 60012-3, PINR #### [facility] ([id number]) [address] [place] [address] Eosinophils/100 WBC (Bld) 1.7 % Normal [facility] Comment on above: Performed By: #### C BCA, 58343-5, 2776-, 37466-2, PINR #### [facility] ([id number]) [address] [place] [address] Erythrocyte distribution width (RBC) [Ratio] 14.8 % Normal 11.5-15.0 [facility] Comment on above: Performed By: #### C JV, 60707-4, 2776-, 56539-6, PINR #### [facility] ([id number]) [address] [address] [place] [address] Hematocrit (Bld) [Volume fraction] 37.3 % Low 39-49 [facility] Comment on above: Performed By: #### C JV, 15489-7, 2776-, 42820-8, PINR #### [facility] ([id number]) [address] [address] Hemoglobin (Bld) [Mass/Vol] 12.7 g/dL Low 13.0-17.0 [facility] Comment on above: Performed By: #### Jim CARIAS, , 2776-09, 28769-8, PINR #### [facility] ([id number]) [address] [address] Lymphocytes (Bld) [#/Vol] 1.4 10*3/uL Normal 1.0-3.5 [facility] Comment on above: Performed By: #### C JV, , 2776-09, 64054-0, PINR #### [facility] ([id number]) [address] [address] Lymphocytes/100 WBC (Bld) 13.4 % Normal [facility] Comment on above: Performed By: #### C BCA, 75982-4, 2776-09, 99651-7, PINR #### [facility] ([id number]) [address] [address] [place] [address] MCH (RBC) [Entitic mass] 31.0 pg Normal 27-34 [facility] Comment on above: Performed By: #### C BCA, 11044-4, 2776-, 14946-0, PINR #### [facility] ([id number]) [address] [place] [address] MCHC (RBC) [Mass/Vol] 34.1 g/dL Normal 32-36 [facility] Comment on above: Performed By: #### Jim BCA, 79514-0, 2776-, 92170-8, PINR #### [facility] ([id number]) [address] [place] [address] MCV (RBC) [Entitic vol] 91 fL Normal 80-100 [facility] Comment on above: Performed By: #### Jim BCA, 22879-0, 2776-, 51885-6, PINR #### [facility] ([id number]) [address] [place] [address] Monocytes (Bld) [#/Vol] 1.1 10*3/uL High 0-0.9 [facility] Comment on above: Performed By: #### Jim BCA, , 2776-09, 03301-1, PINR #### [facility] ([id number]) [address] [place] [address] Monocytes/100 WBC (Bld) 11.2 % Normal [facility] Comment on above: Performed By: #### Jim BCA, , 2776-09, 57518-7, PINR #### [facility] ([id number]) [address] [place] [address] Neutrophils/100 WBC (Bld) 73.1 % Normal [facility] Comment on above: Performed By: #### Jim BCA, 75320-6, 2776-, 82942-5, PINR #### [facility] ([id number]) [address] [place] [address] Platelet mean volume (Bld) [Entitic vol] 7.8 fL Normal 7-12 [facility] Comment on above: Performed By: #### Jim CARIAS, 83199-4, 7-1, 34055-2, PINR #### [facility] ([id number]) [address] [place] [address] Platelets (Bld) [#/Vol] 344 10*3/uL Normal 150-450 [facility] Comment on above: Performed By: #### Jim CARIAS, 20013-7, 7-1, 92702-0, PINR #### [facility] ([id number]) [address] [place] [address] RBC COUNT 4.11 X10E12/L Normal 4.10-5.70 [facility] Comment on above: Performed By: #### Jim CARIAS, 85450-2, 2776-1, 00509-7, PINR #### [facility] ([id number]) [address] [place] [address] WBC (Bld) [#/Vol] 10.2 10*3/uL Normal 4.0-11.0 [facility] Comment on above: Performed By: #### Jim CARIAS, 63232-8, 2776-1, 97255-8, PINR #### [facility] ([id number]) [address] [place] [address] COMPREHENSIVE METABOLIC PANE Néstor 09-26-2023 Albumin [Mass/Vol] 4.0 g/dL Normal 3.2-5.3 [facility] Comment on above: Performed By: #### Jim CARIAS, 30532-6, 2776-1, 29924-0, PINR #### [facility] ([id number]) [address] [place] [address] ALP [Catalytic activity/Vol] 39 U/L Normal 39-130 [facility] Comment on above: Performed By: #### C BCA, 96378-3, 2777-1, 90233-5, PINR #### [facility] ([id number]) [address] [place], [place] [address] ALT [Catalytic activity/Vol] 25 U/L Normal 0-40 [facility] Comment on above: Performed By: #### C BCA, 80365-9, 2777-1, 98437-8, PINR #### [facility] ([id number]) [address], [address] [place] [address] Anion gap [Moles/Vol] 10 mmol/L Normal 5-15 [facility] Comment on above: Performed By: #### C BCA, 89641-8, 2777-1, 32614-5, PINR #### [facility] ([id number]) [address], [address] [place] [address] AST [Catalytic activity/Vol] 19 U/L Normal 0-41 [facility] Comment on above: Performed By: #### C BCA, 29227-0, 2777-1, 50393-1, PINR #### [facility] ([id number]) [address], [address] [place] [address] Bilirubin [Mass/Vol] 0.5 mg/dL Normal 0.3-1.2 [facility] Comment on above: Performed By: #### C BCA, 23534-0, 2777-1, 98384-2, PINR #### [facility] ([id number]) [address], [address] [place] [address] Calcium [Mass/Vol] 8.9 mg/dL Normal 8.5-10.5 [facility] Comment on above: Performed By: #### C BCA, 72507-3, 2777-1, 85830-6, PINR #### [facility] ([id number]) [address], [address] [place] [address] Chloride [Moles/Vol] 102 mmol/L Normal 98-109 [facility] Comment on above: Performed By: #### C BCA, 66409-2, 2776-1, 81450-9, PINR #### [facility] ([id number]) [address], [address] [place] [address] CO2 [Moles/Vol] 26 mmol/L Normal 22-32 [facility] Comment on above: Performed By: #### C BCA, 51942-2, 2776-1, 70634-8, PINR #### [facility] ([id number]) [address], [address] [place] [address] Creatinine [Mass/Vol] 0.89 mg/dL Normal 0.60-1.30 [facility] Comment on above: Result Comment: METH OD TRACEABLE TO IDMS STANDARD Performed By: #### C BCA, , 2776-1, 86092-9, PINR #### [facility] ([id number]) [address], [address] [place] [address] eGFR (CKD-EPI) NON-RACE DEPENDENT >90 Normal >59 [facility] Comment on above: Result Comment: Reported eGFR is based on the CKD-EPI 2020 equation that does not use a race coefficient. Performed By: #### C BCA, , 2776-1, 77085-6, PINR #### [facility] ([id number]) [address], [address] [place] [address] Glucose [Mass/Vol] 142 mg/dL High 65-99 [facility] Comment on above: Performed By: #### C BCA, 36503-8, 2776-1, 76228-2, PINR #### [facility] ([id number]) [address], [address] [place] [address] Potassium [Moles/Vol] 4.1 mmol/L Normal 3.5-5.0 [facility] Comment on above: Performed By: #### C BCA, 97023-0, 2777-1, 13713-6, PINR #### [facility] ([id number]) [address], [address] [place] [address] Protein [Mass/Vol] 7.2 g/dL Normal 6.0-8.0 [facility] Comment on above: Performed By: #### C BCA, 93441-7, 2777-1, 65947-3, PINR #### [facility] ([id number]) [address], [address] [place] [address] Sodium [Moles/Vol] 138 mmol/L Normal 134-146 [facility] Comment on above: Performed By: #### C BCA, 39650-3, 7-1, 79338-1, PINR #### [facility] ([id number]) [address], [address] [place] [address] Urea nitrogen [Mass/Vol] 22 mg/dL Normal 5-27 [facility] Comment on above: Performed By: #### C BCA, 58696-4, 7-1, 19345-0, PINR #### [facility] ([id number]) [address], [address] [place] [address] Glucose Glucometer (dC) [M ass/Vol]on 09-26-2023 Glucose [Mass/Vol] 224 mg/dL High 65-99 [facility] Glucose [Mass/Vol] 155 mg/dL High 65-99 [facility] Glucose Poct Glucometerson 0 09-26-2023 Glucose [Mass/Vol] 236 mg/dL Normal [facility] Comment on above: Result Comment: [facility] Glucose Reference Range is dependent on time and content of last meal. Glucose of more than 200 mg/dL in a nonstressed, ambulatory subject supports the diagnosis of Diabetes Mellitus. PERFORMED BY: [facility] [place] [address] PATHOLOGIST HEAD END DESIZING MACHINE OPERATOR PAULA STEWART M.D. Performed By: #### C BC, BMP #### [facility] [address] Glucose Glucometer (BldC) [M ass/Vol]on 09-25-2023 Glucose [Mass/Vol] 234 mg/dL High 65-99 [facility] Glucose [Mass/Vol] 149 mg/dL High 65-99 [facility] Glucose [Mass/Vol] 244 mg/dL High 65-99 [facility] Glucose [Mass/Vol] 158 mg/dL High 65-99 [facility] CBC AND AUTO DIFFon 09-24-19 ABSOLUTE BASOPHIL 0.0 X10E9/L Normal 0.0-0.2 [facility] Comment on above: Performed By: #### C BCA, , 2776-, 31048-7, PINR #### [facility] ([id number]) [address], [address] [place] [address] ABSOLUTE NEUTROPHIL 6.6 X10E9/L Normal 1.5-6.6 [facility] Comment on above: Performed By: #### C BCA, , 2776-, 79195-4, PINR #### [facility] ([id number]) [address], [address] [place] [address] Basophils/100 WBC (Bld) 0.5 % Normal [facility] Comment on above: Performed By: #### C BCA, 46896-6, 2776-, 96636-1, PINR #### [facility] ([id number]) [address], [address] [place] [address] Eosinophils (Bld) [#/Vol] 0.2 10*3/uL Normal 0.0-0.4 [facility] Comment on above: Performed By: #### C BCA, 67650-0, 2776-, 74505-9, PINR #### [facility] ([id number]) [address], [address] [place] [address] Eosinophils/100 WBC (Bld) 2.2 % Normal [facility] Comment on above: Performed By: #### C JV, 01930-3, 2776-1, 62037-9, PINR #### [facility] ([id number]) [address], [address] [place] [address] Erythrocyte distribution width (RBC) [Ratio] 14.8 % Normal 11.5-15.0 [facility] Comment on above: Performed By: #### Jim CARIAS, 47723-0, 2776-09, 15159-5, PINR #### [facility] ([id number]) [address], [address] [place] [address] Hematocrit (Bld) [Volume fraction] 39.5 % Normal 39-49 [facility] Comment on above: Performed By: #### C JV, , 2776-09, 39587-5, PINR #### [facility] ([id number]) [address], [address] [place] [address] Hemoglobin (Bld) [Mass/Vol] 13.3 g/dL Normal 13.0-17.0 [facility] Comment on above: Performed By: #### C JV, , 2776-09, 23535-9, PINR #### [facility] ([id number]) [address], [address] [place] [address] Lymphocytes (Bld) [#/Vol] 1.9 10*3/uL Normal 1.0-3.5 [facility] Comment on above: Performed By: #### C BCA, , 2776-, 82361-4, PINR #### [facility] ([id number]) [address], [address] [place] [address] Lymphocytes/100 WBC (Bld) 19.5 % Normal [facility] Comment on above: Performed By: #### Jim CARIAS, 44322-3, 2776-, 24501-2, PINR #### [facility] ([id number]) [address], [address] [place] [address] MCH (RBC) [Entitic mass] 30.7 pg Normal 27-34 [facility] Comment on above: Performed By: #### Jim CARIAS, 51183-8, 2776-, 24857-4, PINR #### [facility] ([id number]) [address], [facility] [address] [place] [address] MCHC (RBC) [Mass/Vol] 33.7 g/dL Normal 32-36 [facility] Comment on above: Performed By: #### Jim CARIAS, , 2776-09, 23043-8, PINR #### [facility] ([id number]) [address], [address] [place] [address] MCV (RBC) [Entitic vol] 91 fL Normal 80-100 [facility] Comment on above: Performed By: #### Jim CARIAS, , 2776-09, 81734-6, PINR #### [facility] ([id number]) [address], [address] [place] [address] Monocytes (Bld) [#/Vol] 1.0 10*3/uL High 0-0.9 [facility] Comment on above: Performed By: #### Jim CARIAS, 84840-5, 2776-, 57332-1, PINR #### [facility] ([id number]) [address], [address] [place] [address] Monocytes/100 WBC (Bld) 10.2 % Normal [facility] Comment on above: Performed By: #### Jim CARIAS, 71055-6, 2776-, 88725-0, PINR #### [facility] ([id number]) [address], [address] [place] [address] Neutrophils/100 WBC (Bld) 67.6 % Normal [facility] Comment on above: Performed By: #### Jim BCA, 39603-0, 7-1, 32850-5, PINR #### [facility] ([id number]) [address], [address] [place] [address] Platelet mean volume (Bld) [Entitic vol] 7.8 fL Normal 7-12 [facility] Comment on above: Performed By: #### C JV, 17449-5, 2776-, 14424-7, PINR #### [facility] ([id number]) [address], [address] [place] [address] Platelets (Bld) [#/Vol] 288 10*3/uL Normal 150-450 [facility] Comment on above: Performed By: #### Jim BCA, 08193-1, 2776-1, 84156-6, PINR #### [facility] ([id number]) [address], [address] [place] [address] RBC COUNT 4.34 X10E12/L Normal 4.10-5.70 [facility] Comment on above: Performed By: #### Jim CARIAS, 01671-5, 2776-1, 79633-6, PINR #### [facility] ([id number]) [address], [address] [place] [address] WBC (Bld) [#/Vol] 9.8 10*3/uL Normal 4.0-11.0 [facility] Comment on above: Performed By: #### Jim BCA, 29714-4, 2776-1, 03592-1, PINR #### [facility] ([id number]) [address], [address] [place] [address] COMPREHENSIVE METABOLIC PANE Néstor 09-24-2023 Albumin [Mass/Vol] 4.2 g/dL Normal 3.2-5.3 [facility] Comment on above: Performed By: #### C BCA, 70762-0, 2777-1, 87033-6, PINR #### [facility] ([id number]) [address], [address] [place] [address] ALP [Catalytic activity/Vol] 39 U/L Normal 39-130 [facility] Comment on above: Performed By: #### C BCA, 87655-5, 7-1, 44674-4, PINR #### [facility] ([id number]) [address], [address] [place] [address] ALT [Catalytic activity/Vol] 20 U/L Normal 0-40 [facility] Comment on above: Performed By: #### C BCA, 01397-5, 7-1, 52335-0, PINR #### [facility] ([id number]) [address], [address] [place] [address] Anion gap [Moles/Vol] 13 mmol/L Normal 5-15 [facility] Comment on above: Performed By: #### C BCA, 15910-0, 7-1, 72203-6, PINR #### [facility] ([id number]) [address], [address] [place] [address] AST [Catalytic activity/Vol] 17 U/L Normal 0-41 [facility] Comment on above: Performed By: #### C BCA, 57899-2, 2777-1, 68437-2, PINR #### [facility] ([id number]) [address], [address] [place] [address] Bilirubin [Mass/Vol] 0.4 mg/dL Normal 0.3-1.2 [facility] Comment on above: Performed By: #### C BCA, 31157-1, 2777-1, 68099-8, PINR #### [facility] ([id number]) [address], [address] [place] [address] Calcium [Mass/Vol] 9.0 mg/dL Normal 8.5-10.5 [facility] Comment on above: Performed By: #### C BCA, 67179-5, 2777-1, 71432-5, PINR #### [facility] ([id number]) [address], [address] [place] [address] Chloride [Moles/Vol] 103 mmol/L Normal 98-109 [facility] Comment on above: Performed By: #### C BCA, 87312-0, 7-1, 66045-2, PINR #### [facility] ([id number]) [address], [address] [place] [address] CO2 [Moles/Vol] 25 mmol/L Normal 22-32 [facility] Comment on above: Performed By: #### C BCA, 09061-6, 2777-1, 54077-3, PINR #### [facility] ([id number]) [address], [facility] [address] [place] [address] Creatinine [Mass/Vol] 0.82 mg/dL Normal 0.60-1.30 [facility] Comment on above: Result Comment: METH OD TRACEABLE TO IDMS STANDARD Performed By: #### C BCA, 18197-6, 2777-1, 70205-8, PINR #### [facility] ([id number]) [address], [address] [place] [address] eGFR (CKD-EPI) NON-RACE DEPENDENT >90 Normal >59 [facility] Comment on above: Result Comment: Reported eGFR is based on the CKD-EPI 2020 equation that does not use a race coefficient. Performed By: #### C BCA, 01006-8, 2777-1, 13683-9, PINR #### [facility] ([id number]) [address], [address] [place] [address] Glucose [Mass/Vol] 175 mg/dL High 65-99 [facility] Comment on above: Performed By: #### C BCA, 63815-3, 2777-1, 63974-0, PINR #### [facility] ([id number]) [address], [address] [place] [address] Potassium [Moles/Vol] 4.4 mmol/L Normal 3.5-5.0 [facility] Comment on above: Performed By: #### C BCA, 01007-6, 2777-1, 06770-5, PINR #### [facility] ([id number]) [address], [address] [place] [address] Protein [Mass/Vol] 7.2 g/dL Normal 6.0-8.0 [facility] Comment on above: Performed By: #### Jim BCA, 42499-9, 7-1, 18373-8, PINR #### [facility] ([id number]) [address], [address] [place] [address] Sodium [Moles/Vol] 141 mmol/L Normal 134-146 [facility] Comment on above: Performed By: #### Jim BCA, 32027-1, 7-1, 85277-5, PINR #### [facility] ([id number]) [address], [address] [place] [address] Urea nitrogen [Mass/Vol] 24 mg/dL Normal 5-27 [facility] Comment on above: Performed By: #### C BCA, 41168-1, 2777-1, 30041-3, PINR #### [facility] ([id number]) [address] [place] [address] Glucose Glucometer (BldC) [M ass/Vol]on 09-24-2023 Glucose [Mass/Vol] 175 mg/dL High 65-99 [facility] Glucose [Mass/Vol] 141 mg/dL High 65-99 [facility] Glucose [Mass/Vol] 216 mg/dL High 65-99 [facility] Glucose [Mass/Vol] 188 mg/dL High 65-99 [facility] CBC AND AUTO DIFFon 09-23-19 ABSOLUTE BASOPHIL 0.0 X10E9/L Normal 0.0-0.2 [facility] Comment on above: Performed By: #### Jim CARIAS, 27255-7, 2776-, 17903-0, PINR #### [facility] ([id number]) [address], [address] [place] [address] ABSOLUTE NEUTROPHIL 6.7 X10E9/L High 1.5-6.6 [facility] Comment on above: Performed By: #### Jim CARIAS, , 2776-, 52500-0, PINR #### [facility] ([id number]) [address], [address] [place] [address] Basophils/100 WBC (Bld) 0.2 % Normal [facility] Comment on above: Performed By: #### Jim CARIAS, , 2776-09, 48004-9, PINR #### [facility] ([id number]) [address] [place] [address] Eosinophils (Bld) [#/Vol] 0.2 10*3/uL Normal 0.0-0.4 [facility] Comment on above: Performed By: #### Jim BCA, 42406-0, 2776-, 92131-0, PINR #### [facility] ([id number]) [address] [place] [address] Eosinophils/100 WBC (Bld) 2.2 % Normal [facility] Comment on above: Performed By: #### Jim CARIAS, 25739-7, 2776-1, 43423-6, PINR #### [facility] ([id number]) [address] [place] [address] Erythrocyte distribution width (RBC) [Ratio] 15.0 % Normal 11.5-15.0 [facility] Comment on above: Performed By: #### Jim CARIAS, 67862-2, 2776-1, 58998-3, PINR #### [facility] ([id number]) [address], [facility] [address] [place] [address] Hematocrit (Bld) [Volume fraction] 37.8 % Low 39-49 [facility] Comment on above: Performed By: #### Jim CARIAS, 79167-7, 2776-, 99599-4, PINR #### [facility] ([id number]) [address] [place] [address] Hemoglobin (Bld) [Mass/Vol] 13.0 g/dL Normal 13.0-17.0 [facility] Comment on above: Performed By: #### Jim CARIAS, , 2776-, 63350-3, PINR #### [facility] ([id number]) [address], [facility] [address] [place] [address] Lymphocytes (Bld) [#/Vol] 1.9 10*3/uL Normal 1.0-3.5 [facility] Comment on above: Performed By: #### Jim CARIAS, 31078-1, 2776-, 60401-9, PINR #### [facility] ([id number]) [address] [place] [address] Lymphocytes/100 WBC (Bld) 18.9 % Normal [facility] Comment on above: Performed By: #### Jim CARIAS, 82521-9, 2776-, 56697-6, PINR #### [facility] ([id number]) [address], [address] [place] [address] MCH (RBC) [Entitic mass] 31.0 pg Normal 27-34 [facility] Comment on above: Performed By: #### Jmi BCA, 15470-4, 7-1, 29652-0, PINR #### [facility] ([id number]) [address], [address] [place] [address] MCHC (RBC) [Mass/Vol] 34.2 g/dL Normal 32-36 [facility] Comment on above: Performed By: #### Jim BCA, 70761-2, 2776-, 38350-3, PINR #### [facility] ([id number]) [address], [facility] [address] [place] [address] MCV (RBC) [Entitic vol] 91 fL Normal 80-100 [facility] Comment on above: Performed By: #### Jim BCA, 50395-7, 2776-1, 20710-7, PINR #### [facility] ([id number]) [address] [place] [address] Monocytes (Bld) [#/Vol] 1.4 10*3/uL High 0-0.9 [facility] Comment on above: Performed By: #### Jim BCA, 44699-3, 2776-, 39641-9, PINR #### [facility] ([id number]) [address], [facility] [address] [place] [address] Monocytes/100 WBC (Bld) 13.2 % Normal [facility] Comment on above: Performed By: #### Jim BCA, 46383-1, 2776-, 06200-7, PINR #### [facility] ([id number]) [address], [address] [place] [address] Neutrophils/100 WBC (Bld) 65.5 % Normal [facility] Comment on above: Performed By: #### Jim BCA, 17225-3, 7-1, 40259-5, PINR #### [facility] ([id number]) [address] [place] [address] Platelet mean volume (Bld) [Entitic vol] 7.7 fL Normal 7-12 [facility] Comment on above: Performed By: #### C JV, 69282-0, 7-1, 71412-8, PINR #### [facility] ([id number]) [address], [address] [place] [address] Platelets (Bld) [#/Vol] 236 10*3/uL Normal 150-450 [facility] Comment on above: Performed By: #### C JV, 06183-5, 2776-1, 85207-9, PINR #### [facility] ([id number]) [address] [place] [address] RBC COUNT 4.17 X10E12/L Normal 4.10-5.70 [facility] Comment on above: Performed By: #### Jim CARIAS, , 2776-1, 84818-5, PINR #### [facility] ([id number]) [address] [place] [address] WBC (Bld) [#/Vol] 10.3 10*3/uL Normal 4.0-11.0 [facility] Comment on above: Performed By: #### Jim CARIAS, 96160-8, 2776-1, 97798-3, PINR #### [facility] ([id number]) [address], [address] [place] [address] COMPREHENSIVE METABOLIC PANE Néstor 2023 Albumin [Mass/Vol] 3.8 g/dL Normal 3.2-5.3 [facility] Comment on above: Performed By: #### Jim CARIAS, 13258-8, 2776-1, 45303-8, PINR #### [facility] ([id number]) [address] [place] [address] ALP [Catalytic activity/Vol] 34 U/L Low 39-130 [facility] Comment on above: Performed By: #### C BCA, 53150-4, 2777-1, 68514-9, PINR #### [facility] ([id number]) [address] [place] [address] ALT [Catalytic activity/Vol] 24 U/L Normal 0-40 [facility] Comment on above: Performed By: #### C BCA, 61532-4, 7-1, 43125-6, PINR #### [facility] ([id number]) [address] [place] [address] Anion gap [Moles/Vol] 9 mmol/L Normal 5-15 [facility] Comment on above: Performed By: #### C BCA, 79477-2, 7-1, 62217-1, PINR #### [facility] ([id number]) [address] [place] [address] AST [Catalytic activity/Vol] 13 U/L Normal 0-41 [facility] Comment on above: Performed By: #### C BCA, 30632-8, 7-1, 22209-7, PINR #### [facility] ([id number]) [address] [place] [address] Bilirubin [Mass/Vol] 0.4 mg/dL Normal 0.3-1.2 [facility] Comment on above: Performed By: #### C BCA, 48126-7, 7-1, 34409-8, PINR #### [facility] ([id number]) [address] [place] [address] Calcium [Mass/Vol] 8.5 mg/dL Normal 8.5-10.5 [facility] Comment on above: Performed By: #### C BCA, 99803-4, 2777-1, 27771-9, PINR #### [facility] ([id number]) [address], [address] [place] [address] Chloride [Moles/Vol] 105 mmol/L Normal 98-109 [facility] Comment on above: Performed By: #### C BCA, 15790-2, 2777-1, 24294-4, PINR #### [facility] ([id number]) [address], [address] [place] [address] CO2 [Moles/Vol] 28 mmol/L Normal 22-32 [facility] Comment on above: Performed By: #### C BCA, 04137-4, 2777-1, 60160-4, PINR #### [facility] ([id number]) [address], [address] [place] [address] Creatinine [Mass/Vol] 1.01 mg/dL Normal 0.60-1.30 [facility] Comment on above: Result Comment: METH OD TRACEABLE TO IDMS STANDARD Performed By: #### C BCA, 97768-0, 2777-1, 73769-3, PINR #### [facility] ([id number]) [address], [address] [place] [address] GFR/1.73 sq M.predicted among non-blacks MDRD (S/P/Bld) [Vol rate/Area] 82 mL/min/{1.73_m2} Normal >59 [facility] Comment on above: Result Comment: Reported eGFR is based on the CKD-EPI 2020 equation that does not use a race coefficient. Performed By: #### C BCA, 11809-8, 2777-1, 86891-0, PINR #### [facility] ([id number]) [address], [address] [place] [address] Glucose [Mass/Vol] 158 mg/dL High 65-99 [facility] Comment on above: Performed By: #### C BCA, 90719-2, 2777-1, 02379-0, PINR #### [facility] ([id number]) [address], [address] [place] [address] Potassium [Moles/Vol] 3.9 mmol/L Normal 3.5-5.0 [facility] Comment on above: Performed By: #### C BCA, 28789-8, 2777-1, 80812-4, PINR #### [facility] ([id number]) [address], [address] [place] [address] Protein [Mass/Vol] 6.5 g/dL Normal 6.0-8.0 [facility] Comment on above: Performed By: #### C BCA, 31801-9, 2777-1, 17029-1, PINR #### [facility] ([id number]) [address], [address] [place] [address] Sodium [Moles/Vol] 142 mmol/L Normal 134-146 [facility] Comment on above: Performed By: #### C BCA, 81590-9, 2777-1, 05339-7, PINR #### [facility] ([id number]) [address], [address] [place] [address] Urea nitrogen [Mass/Vol] 29 mg/dL High 5-27 [facility] Comment on above: Performed By: #### C BCA, 57543-7, 2777-1, 58828-7, PINR #### [facility] ([id number]) [address], [address] [place] [address] Glucose Glucometer (BldC) [M ass/Vol]on 2023 Glucose [Mass/Vol] 174 mg/dL High 65-99 [facility] Glucose [Mass/Vol] 203 mg/dL High 65-99 [facility] Glucose [Mass/Vol] 234 mg/dL High 65-99 [facility] Glucose [Mass/Vol] 266 mg/dL High 65-99 [facility] Glucose [Mass/Vol] 281 mg/dL High 65-99 [facility] CBC AND AUTO DIFFon 09-22-19 24 ABSOLUTE BASOPHIL 0.0 X10E9/L Normal 0.0-0.2 [facility] Comment on above: Performed By: #### Jim CARIAS, 24156-2, 2776-1, 20934-4, PINR #### [facility] ([id number]) [address], [address] [place] [address] ABSOLUTE NEUTROPHIL 10.7 X10E9/L High 1.5-6.6 [facility] Comment on above: Performed By: #### Jim CARIAS, 62365-0, 2776-, 28051-6, PINR #### [facility] ([id number]) [address], [address] [place] [address] Basophils/100 WBC (Bld) 0.1 % Normal [facility] Comment on above: Performed By: #### Jim CARIAS, , 2776-09, 23103-5, PINR #### [facility] ([id number]) [address], [address] [place] [address] Eosinophils (Bld) [#/Vol] 0.0 10*3/uL Normal 0.0-0.4 [facility] Comment on above: Performed By: #### Jim CARIAS, , 2776-, 19439-1, PINR #### [facility] ([id number]) [address], [address] [place] [address] Eosinophils/100 WBC (Bld) 0.1 % Normal [facility] Comment on above: Performed By: #### Jim CARIAS, , 2776-, 00151-3, PINR #### [facility] ([id number]) [address], [address] [place] [address] Erythrocyte distribution width (RBC) [Ratio] 15.0 % Normal 11.5-15.0 [facility] Comment on above: Performed By: #### C BCA, 93748-3, 2776-, 50154-2, PINR #### [facility] ([id number]) [address], [address] [place] [address] Hematocrit (Bld) [Volume fraction] 37.9 % Low 39-49 [facility] Comment on above: Performed By: #### Jim CARIAS, 93529-4, 2776-, 14765-2, PINR #### [facility] ([id number]) [address], [address] [place] [address] Hemoglobin (Bld) [Mass/Vol] 12.8 g/dL Low 13.0-17.0 [facility] Comment on above: Performed By: #### Jim CARIAS, 33516-2, 2776-, 49373-3, PINR #### [facility] ([id number]) [address], [address] [place] [address] Lymphocytes (Bld) [#/Vol] 0.7 10*3/uL Low 1.0-3.5 [facility] Comment on above: Performed By: #### Jim CARIAS, , 2776-09, 26516-0, PINR #### [facility] ([id number]) [address], [facility] [address] [place] [address] Lymphocytes/100 WBC (Bld) 5.5 % Normal [facility] Comment on above: Performed By: #### Jim BCA, , 2776-, 50699-0, PINR #### [facility] ([id number]) [address], [facility] [address] [place] [address] MCH (RBC) [Entitic mass] 30.6 pg Normal 27-34 [facility] Comment on above: Performed By: #### Jim CARIAS, , 2776-, 03349-6, PINR #### [facility] ([id number]) [address], [address] [place] [address] MCHC (RBC) [Mass/Vol] 33.8 g/dL Normal 32-36 [facility] Comment on above: Performed By: #### C JV, 82229-6, 2777-1, 72617-1, PINR #### [facility] ([id number]) [address], [address] [place] [address] MCV (RBC) [Entitic vol] 91 fL Normal 80-100 [facility] Comment on above: Performed By: #### Jim CARIAS, 24401-1, 7-1, 53921-3, PINR #### [facility] ([id number]) [address], [address] [place] [address] Monocytes (Bld) [#/Vol] 0.6 10*3/uL Normal 0-0.9 [facility] Comment on above: Performed By: #### Jim CARIAS, 68093-1, 2776-1, 52228-2, PINR #### [facility] ([id number]) [address], [address] [place] [address] Monocytes/100 WBC (Bld) 4.8 % Normal [facility] Comment on above: Performed By: #### Jim CARIAS, 81282-0, 7-1, 65318-5, PINR #### [facility] ([id number]) [address], [address] [place] [address] Neutrophils/100 WBC (Bld) 89.5 % Normal [facility] Comment on above: Performed By: #### Jim BCA, 24362-2, 7-1, 49345-8, PINR #### [facility] ([id number]) [address], [address] [place] [address] Platelet mean volume (Bld) [Entitic vol] 7.8 fL Normal 7-12 [facility] Comment on above: Performed By: #### C BCA, 07509-3, 7-1, 14646-5, PINR #### [facility] ([id number]) [address], [address] [place] [address] Platelets (Bld) [#/Vol] 288 10*3/uL Normal 150-450 [facility] Comment on above: Performed By: #### C BCA, 44385-7, 7-1, 24762-6, PINR #### [facility] ([id number]) [address], [address] [place] [address] RBC COUNT 4.18 X10E12/L Normal 4.10-5.70 [facility] Comment on above: Performed By: #### Jim BCA, 63122-6, 7-1, 96001-3, PINR #### [facility] ([id number]) [address], [address] [place] [address] WBC (Bld) [#/Vol] 12.0 10*3/uL High 4.0-11.0 [facility] Comment on above: Performed By: #### C BCA, 58330-9, 2776-1, 50265-0, PINR #### [facility] ([id number]) [address], [address] [place] [address] COMPREHENSIVE METABOLIC PANE Néstor 09-22-2023 Albumin [Mass/Vol] 4.0 g/dL Normal 3.2-5.3 [facility] Comment on above: Performed By: #### C BCA, 49789-9, 7-1, 67982-1, PINR #### [facility] ([id number]) [address], [address] [place] [address] ALP [Catalytic activity/Vol] 33 U/L Low 39-130 [facility] Comment on above: Performed By: #### Jim BCA, 03488-3, 2777-1, 48458-7, PINR #### [facility] ([id number]) [address], [address] [place] [address] ALT [Catalytic activity/Vol] 33 U/L Normal 0-40 [facility] Comment on above: Performed By: #### C BCA, 71418-6, 2777-1, 77155-9, PINR #### [facility] ([id number]) [address], [address] [place] [address] Anion gap [Moles/Vol] 11 mmol/L Normal 5-15 [facility] Comment on above: Performed By: #### C BCA, 09093-9, 7-1, 33583-4, PINR #### [facility] ([id number]) [address], [address] [place] [address] AST [Catalytic activity/Vol] 22 U/L Normal 0-41 [facility] Comment on above: Performed By: #### C BCA, 47977-0, 2776-1, 09651-5, PINR #### [facility] ([id number]) [address], [address] [place] [address] Bilirubin [Mass/Vol] 0.3 mg/dL Normal 0.3-1.2 [facility] Comment on above: Performed By: #### C BCA, 82954-8, 7-1, 94361-6, PINR #### [facility] ([id number]) [address], [address] [place] [address] Calcium [Mass/Vol] 8.7 mg/dL Normal 8.5-10.5 [facility] Comment on above: Performed By: #### C BCA, 28483-7, 7-1, 54701-8, PINR #### [facility] ([id number]) [address], [address] [place] [address] Chloride [Moles/Vol] 105 mmol/L Normal 98-109 [facility] Comment on above: Performed By: #### C BCA, , 2776-1, 74570-7, PINR #### [facility] ([id number]) [address], [address] [place] [address] CO2 [Moles/Vol] 24 mmol/L Normal 22-32 [facility] Comment on above: Performed By: #### C BCA, 32376-0, 2776-, 61325-9, PINR #### [facility] ([id number]) [address], [address] [place] [address] Creatinine [Mass/Vol] 1.05 mg/dL Normal 0.60-1.30 [facility] Comment on above: Result Comment: METH OD TRACEABLE TO IDMS STANDARD Performed By: #### C BCA, , 2776-, 98668-5, PINR #### [facility] ([id number]) [address], [address] [place] [address] GFR/1.73 sq M.predicted among non-blacks MDRD (S/P/Bld) [Vol rate/Area] 79 mL/min/{1.73_m2} Normal >59 [facility] Comment on above: Result Comment: Reported eGFR is based on the CKD-EPI 2020 equation that does not use a race coefficient. Performed By: #### C BCA, , 2776-, 74422-7, PINR #### [facility] ([id number]) [address], [address] [place] [address] Glucose [Mass/Vol] 303 mg/dL High 65-99 [facility] Comment on above: Performed By: #### C BCA, , 2776-1, 54420-6, PINR #### [facility] ([id number]) [address], [address] [place] [address] Potassium [Moles/Vol] 4.5 mmol/L Normal 3.5-5.0 [facility] Comment on above: Performed By: #### C BCA, 91017-3, 2777-1, 60029-1, PINR #### [facility] ([id number]) [address], [address] [place] [address] Protein [Mass/Vol] 6.8 g/dL Normal 6.0-8.0 [facility] Comment on above: Performed By: #### C BCA, 44280-3, 7-1, 91508-3, PINR #### [facility] ([id number]) [address], [address] [place] [address] Sodium [Moles/Vol] 140 mmol/L Normal 134-146 [facility] Comment on above: Performed By: #### C BCA, 87677-7, 2777-1, 39087-8, PINR #### [facility] ([id number]) [address], [address] [place] [address] Urea nitrogen [Mass/Vol] 28 mg/dL High 5-27 [facility] Comment on above: Performed By: #### C BCA, 12549-1, 7-1, 59550-1, PINR #### [facility] ([id number]) [address], [address] [place] [address] Glucose Glucometer (dC) [M ass/Vol]on 09-22-2023 Glucose [Mass/Vol] 261 mg/dL High 65-99 [facility] Glucose [Mass/Vol] 239 mg/dL High 65-99 [facility] Glucose [Mass/Vol] 361 mg/dL High 65-99 [facility] Glucose [Mass/Vol] 309 mg/dL High 65-99 [facility] Glucose [Mass/Vol] 322 mg/dL High 65-99 [facility] XR SPINE LUMBAR 2 OR 3 VWSon 09-22-2023 XR SPINE LUMBAR 2 OR 3 VWS XR SPINE LUMBAR 2 OR 3 VWS History: evaluate hardware s/p lumbar decompression and posterolateral fusion Exam/Technique: 2 views lumbar spine Comparison: Lumber spine x-ray 09/20/2023 Findings: There are recent surgical changes bilateral laminectomies and posterior fusion of L4-L5. There is satisfactory gross alignment with no gross hardware failure. Surgical drainage catheters in place with the subcutaneous emphysematous changes not uncommon following recent surgical procedure. IMPRESSION: There is no gross acute osseous injury. Satisfactory recent postsurgical changes Finalized by Baltazar Stafford MD on 09/22/2023 4:52 PM Normal [facility] CBC AND AUTO DIFFon 09-21-19 ABSOLUTE BASOPHIL 0.0 X10E9/L Normal 0.0-0.2 [facility] Comment on above: Performed By: #### Jim CARIAS, 72396-9, 7-1, 16160-6, PINR #### [facility] ([id number]) [address], [address] [place] [address] ABSOLUTE NEUTROPHIL 5.9 X10E9/L Normal 1.5-6.6 [facility] Comment on above: Performed By: #### Jim CARIAS, 85033-4, 7-1, 97433-7, PINR #### [facility] ([id number]) [address], [address] [place] [address] Basophils/100 WBC (Bld) 0.2 % Normal [facility] Comment on above: Performed By: #### Jim CARIAS, 11883-8, 7-1, 94342-3, PINR #### [facility] ([id number]) [address], [address] [place] [address] Eosinophils (Bld) [#/Vol] 0.2 10*3/uL Normal 0.0-0.4 [facility] Comment on above: Performed By: #### Jim CARIAS, 14090-6, 7-1, 66382-4, PINR #### [facility] ([id number]) [address], [address] [place] [address] Eosinophils/100 WBC (Bld) 1.8 % Normal [facility] Comment on above: Performed By: #### C JV, , 2776-09, 35097-1, PINR #### [facility] ([id number]) [address], [facility] [address] [place] [address] Erythrocyte distribution width (RBC) [Ratio] 15.1 % High 11.5-15.0 [facility] Comment on above: Performed By: #### C JV, , 2776-09, 57311-0, PINR #### [facility] ([id number]) [address], [facility] [address] [place] [address] Hematocrit (Bld) [Volume fraction] 43.6 % Normal 39-49 [facility] Comment on above: Performed By: #### Jim CARIAS, , 2776-09, 31326-6, PINR #### [facility] ([id number]) [address], [address] [place] [address] Hemoglobin (Bld) [Mass/Vol] 14.6 g/dL Normal 13.0-17.0 [facility] Comment on above: Performed By: #### C BCA, , 2776-09, 27749-8, PINR #### [facility] ([id number]) [address], [facility] [address] [place] [address] Lymphocytes (Bld) [#/Vol] 1.5 10*3/uL Normal 1.0-3.5 [facility] Comment on above: Performed By: #### Jim BCA, , 2776-09, 49898-3, PINR #### [facility] ([id number]) [address], [address] [place] [address] Lymphocytes/100 WBC (Bld) 18.0 % Normal [facility] Comment on above: Performed By: #### C BCA, , 2776-, 70395-3, PINR #### [facility] ([id number]) [address], [address] [place] [address] MCH (RBC) [Entitic mass] 30.6 pg Normal 27-34 [facility] Comment on above: Performed By: #### Jim CARIAS, 80708-2, 2776-, 66853-0, PINR #### [facility] ([id number]) [address], [address] [place] [address] MCHC (RBC) [Mass/Vol] 33.4 g/dL Normal 32-36 [facility] Comment on above: Performed By: #### Jim CARISA, 98299-3, 2776-, 61288-0, PINR #### [facility] ([id number]) [address], [facility] [address] [place] [address] MCV (RBC) [Entitic vol] 92 fL Normal 80-100 [facility] Comment on above: Performed By: #### Jim CARIAS, , 2776-, 22743-8, PINR #### [facility] ([id number]) [address], [address] [address] Monocytes (Bld) [#/Vol] 0.9 10*3/uL Normal 0-0.9 [facility] Comment on above: Performed By: #### Jim CARIAS, 21006-6, 2776-, 57054-2, PINR #### [facility] ([id number]) [address] [address] [place] [address] Monocytes/100 WBC (Bld) 10.9 % Normal [facility] Comment on above: Performed By: #### Jim BCA, 38952-9, 2776-, 90195-2, PINR #### [facility] ([id number]) [address], [address] [place] [address] Neutrophils/100 WBC (Bld) 69.1 % Normal [facility] Comment on above: Performed By: #### Jim CARIAS, 38289-3, 7-1, 53243-4, PINR #### [facility] ([id number]) [address], [address] [place] [address] Platelet mean volume (Bld) [Entitic vol] 7.5 fL Normal 7-12 [facility] Comment on above: Performed By: #### Jim CARIAS, 32096-1, 2776-1, 79813-0, PINR #### [facility] ([id number]) [address], [address] [place] [address] Platelets (Bld) [#/Vol] 265 10*3/uL Normal 150-450 [facility] Comment on above: Performed By: #### Jim CARIAS, 00158-0, 2776-, 11478-1, PINR #### [facility] ([id number]) [address], [address] [place] [address] RBC COUNT 4.76 X10E12/L Normal 4.10-5.70 [facility] Comment on above: Performed By: #### Jim CARIAS, 17265-3, 2776-, 19851-5, PINR #### [facility] ([id number]) [address], [address] [place] [address] WBC (Bld) [#/Vol] 8.6 10*3/uL Normal 4.0-11.0 [facility] Comment on above: Performed By: #### Jim BCA, 60676-7, 2776-1, 43593-3, PINR #### [facility] ([id number]) [address], [address] [place] [address] COMPREHENSIVE METABOLIC PANE Néstor 09-21-2023 Albumin [Mass/Vol] 4.2 g/dL Normal 3.2-5.3 [facility] Comment on above: Performed By: #### C BCA, 24204-2, 2777-1, 11554-9, PINR #### [facility] ([id number]) [address], [address] [place] [address] ALP [Catalytic activity/Vol] 36 U/L Low 39-130 [facility] Comment on above: Performed By: #### C BCA, 80500-7, 2777-1, 16154-3, PINR #### [facility] ([id number]) [address], [address] [place] [address] ALT [Catalytic activity/Vol] 36 U/L Normal 0-40 [facility] Comment on above: Performed By: #### C BCA, 15637-3, 7-1, 92698-0, PINR #### [facility] ([id number]) [address], [address] [place] [address] Anion gap [Moles/Vol] 7 mmol/L Normal 5-15 [facility] Comment on above: Performed By: #### C BCA, 49179-5, 7-1, 89169-9, PINR #### [facility] ([id number]) [address], [address] [place] [address] AST [Catalytic activity/Vol] 31 U/L Normal 0-41 [facility] Comment on above: Performed By: #### C BCA, 38515-1, 7-1, 99080-4, PINR #### [facility] ([id number]) [address], [address] [place] [address] Bilirubin [Mass/Vol] 0.5 mg/dL Normal 0.3-1.2 [facility] Comment on above: Performed By: #### C BCA, 91801-2, 2777-1, 45969-4, PINR #### [facility] ([id number]) [address], [address] [place] [address] Calcium [Mass/Vol] 9.1 mg/dL Normal 8.5-10.5 [facility] Comment on above: Performed By: #### C BCA, 81168-5, 2777-1, 76126-5, PINR #### [facility] ([id number]) [address], [address] [place] [address] Chloride [Moles/Vol] 103 mmol/L Normal 98-109 [facility] Comment on above: Performed By: #### C BCA, 74035-4, 2777-1, 85754-2, PINR #### [facility] ([id number]) [address], [address] [address] CO2 [Moles/Vol] 28 mmol/L Normal 22-32 [facility] Comment on above: Performed By: #### C BCA, 15513-2, 7-1, 33182-9, PINR #### [facility] ([id number]) [address], [address] [place] [address] Creatinine [Mass/Vol] 0.94 mg/dL Normal 0.60-1.30 [facility] Comment on above: Result Comment: METH OD TRACEABLE TO IDMS STANDARD Performed By: #### C BCA, 70916-7, 2777-1, 69782-6, PINR #### [facility] ([id number]) [address], [address] [place] [address] GFR/1.73 sq M.predicted among non-blacks MDRD (S/P/Bld) [Vol rate/Area] 90 mL/min/{1.73_m2} Normal >59 [facility] Comment on above: Result Comment: Reported eGFR is based on the CKD-EPI 2020 equation that does not use a race coefficient. Performed By: #### C BCA, 90199-8, 2777-1, 68318-0, PINR #### [facility] ([id number]) [address], [address] [place] [address] Glucose [Mass/Vol] 187 mg/dL High 65-99 [facility] Comment on above: Performed By: #### C BCA, 60081-6, 2777-1, 71389-7, PINR #### [facility] ([id number]) [address], [address] [place] [address] Potassium [Moles/Vol] 4.7 mmol/L Normal 3.5-5.0 [facility] Comment on above: Performed By: #### C BCA, 59387-5, 2777-1, 24960-9, PINR #### [facility] ([id number]) [address], [address] [place] [address] Protein [Mass/Vol] 7.2 g/dL Normal 6.0-8.0 [facility] Comment on above: Performed By: #### Jim BCA, 72759-5, 7-1, 44418-0, PINR #### [facility] ([id number]) [address], [address] [place] [address] Sodium [Moles/Vol] 138 mmol/L Normal 134-146 [facility] Comment on above: Performed By: #### Jim BCA, 84593-7, 2777-1, 61417-0, PINR #### [facility] ([id number]) [address], [address] [place] [address] Urea nitrogen [Mass/Vol] 27 mg/dL Normal 5-27 [facility] Comment on above: Performed By: #### C BCA, 43802-2, 2777-1, 32405-2, PINR #### [facility] ([id number]) [address], [address] [place] [address] FL FLUORO GUIDANCE SPINAL PU NCTUREon 09-21-2023 FL FLUORO GUIDANCE SPINAL PUNCTURE FL FLUORO GUIDANCE SPINAL PUNCTURE FL FLUORO GUIDANCE SPINAL PUNCTURE CLINICAL HISTORY: Pain COMPARISON: None. FINDINGS: Fluoro Time: 41 seconds Reference Air Kerma: 30 mGy Number of images: 7 Fluoroscopic support for procedure in progress. Images show changes related to lower lumbar fusion IMPRESSION: 1. Intraprocedural fluoroscopy for the purposes of treatment planning and localization; findings as above 2. Please refer to final procedural note/dictation for full details Finalized by Corin Booth MD on 09/21/2023 10:13 PM Normal [facility] Glucose Glucometer (BldC) [M ass/Vol]on 09-21-2023 Glucose [Mass/Vol] 149 mg/dL High 65-99 [facility] Glucose [Mass/Vol] 127 mg/dL High 65-99 [facility] Glucose [Mass/Vol] 147 mg/dL High 65-99 [facility] Glucose [Mass/Vol] 162 mg/dL High 65-99 [facility] Glucose [Mass/Vol] 178 mg/dL High 65-99 [facility] Surgical Pathologyon 024 Surgical Pathology Normal [facility] Comment on above: Result Comment: [facility] [address] [place] [address] Surgical Pathology Consultation Patient Name:TOM KHAN:1955 (Age: 68)Gender:MTaken:4Reported:4Physician(s):Bobbi Steen MD ( )Copy To: Rec. #:[id number]: #[id number] Final Pathologic Diagnosis Lumbar spine, excision: Fragments of bone and adjacent soft tissue with reactive and degenerative changes. Report Electronically Signed Out ao/4Avipin Marshall MD Interpretation performed at [facility], [address] [place] [address], License number: [id number]. 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 Gross Description Received in formalin labeled BILL epidural 6 are multiple ragged fragments of gonzalez-bell fibroelastic tissue admixed with yellow-gonzalez fibroadipose tissue and gonzalez bony material, 2.2 x 1.7 x 0.3 cm in aggregate. A definitive cyst is not identified. The soft tissue is submitted entirely in cassette A, and remaining bony material submitted entirely in cassette B following a period of fixation and decalcification in Rapid-Juan Immuno. (2, ns, [id number], m1) RADHA jmajor/09/24/2023O Specimen(s) Received Epidural -6 Fee Codes(s): 1; 24964, 90292 CBC AND AUTO DIFFon 09-20-19 24 ABSOLUTE BASOPHIL 0.0 X10E9/L Normal 0.0-0.2 [facility] Comment on above: Performed By: #### Jim CARIAS, 36968-3, 2776-, 86016-0, PINR #### [facility] ([id number]) [address], [address] [place] [address] ABSOLUTE NEUTROPHIL 5.6 X10E9/L Normal 1.5-6.6 [facility] Comment on above: Performed By: #### Jim CARIAS, , 2776-, 59287-0, PINR #### [facility] ([id number]) [address], [address] [place] [address] Basophils/100 WBC (Bld) 0.6 % Normal [facility] Comment on above: Performed By: #### Jim CARIAS, , 2776-09, 10791-9, PINR #### [facility] ([id number]) [address], [address] [place] [address] Eosinophils (Bld) [#/Vol] 0.2 10*3/uL Normal 0.0-0.4 [facility] Comment on above: Performed By: #### Jim BCA, , 2776-, 35018-7, PINR #### [facility] ([id number]) [address], [address] [place] [address] Eosinophils/100 WBC (Bld) 2.5 % Normal [facility] Comment on above: Performed By: #### C JV, , 2776-, 20957-9, PINR #### [facility] ([id number]) [address], [address] [place], [place] [address] Erythrocyte distribution width (RBC) [Ratio] 15.3 % High 11.5-15.0 [facility] Comment on above: Performed By: #### Jim BCA, , 2776-09, 16118-4, PINR #### [facility] ([id number]) [address], [facility] [address] [place] [address] Hematocrit (Bld) [Volume fraction] 41.8 % Normal 39-49 [facility] Comment on above: Performed By: #### Jim CARIAS, , 2776-09, 06245-5, PINR #### [facility] ([id number]) [address], [address] [place] [address] Hemoglobin (Bld) [Mass/Vol] 14.4 g/dL Normal 13.0-17.0 [facility] Comment on above: Performed By: #### C BCA, , 2776-09, 09734-0, PINR #### [facility] ([id number]) [address], [address] [place] [address] Lymphocytes (Bld) [#/Vol] 1.8 10*3/uL Normal 1.0-3.5 [facility] Comment on above: Performed By: #### C BCA, , 2776-, 68202-5, PINR #### [facility] ([id number]) [address], [facility] [address] [place] [address] Lymphocytes/100 WBC (Bld) 21.2 % Normal [facility] Comment on above: Performed By: #### C BCA, , 2776-09, 64856-2, PINR #### [facility] ([id number]) [address], [address] [place] [address] MCH (RBC) [Entitic mass] 31.0 pg Normal 27-34 [facility] Comment on above: Performed By: #### Jim CARIAS, 16225-8, 2776-, 24402-2, PINR #### [facility] ([id number]) [address], [address] [place] [address] MCHC (RBC) [Mass/Vol] 34.6 g/dL Normal 32-36 [facility] Comment on above: Performed By: #### Jim CARIAS, 37522-8, 2776-09, 68155-9, PINR #### [facility] ([id number]) [address], [address] [place] [address] MCV (RBC) [Entitic vol] 90 fL Normal 80-100 [facility] Comment on above: Performed By: #### Jim CARIAS, 97798-4, 2776-09, 46493-9, PINR #### [facility] ([id number]) [address], [address] [place] [address] Monocytes (Bld) [#/Vol] 0.8 10*3/uL Normal 0-0.9 [facility] Comment on above: Performed By: #### Jim CARIAS, 10504-9, 2776-09, 72639-5, PINR #### [facility] ([id number]) [address], [address] [place] [address] Monocytes/100 WBC (Bld) 9.2 % Normal [facility] Comment on above: Performed By: #### Jim CARIAS, 27912-5, 2776-, 17688-7, PINR #### [facility] ([id number]) [address], [address] [place] [address] Neutrophils/100 WBC (Bld) 66.5 % Normal [facility] Comment on above: Performed By: #### C BCA, 55538-7, 2777-1, 40433-3, PINR #### [facility] ([id number]) [address], [address] [place] [address] Platelet mean volume (Bld) [Entitic vol] 7.4 fL Normal 7-12 [facility] Comment on above: Performed By: #### C BCA, 49342-0, 7-1, 46432-9, PINR #### [facility] ([id number]) [address], [facility] [address] [place] [address] Platelets (Bld) [#/Vol] 293 10*3/uL Normal 150-450 [facility] Comment on above: Performed By: #### Jim BCA, 87122-6, 7-1, 02186-7, PINR #### [facility] ([id number]) [address], [address] [place] [address] RBC COUNT 4.67 X10E12/L Normal 4.10-5.70 [facility] Comment on above: Performed By: #### C BCA, 09740-6, 2776-1, 15342-2, PINR #### [facility] ([id number]) [address], [facility] [address] [place] [address] WBC (Bld) [#/Vol] 8.4 10*3/uL Normal 4.0-11.0 [facility] Comment on above: Performed By: #### C BCA, 80850-6, 7-1, 65065-1, PINR #### [facility] ([id number]) [address], [address] [place] [address] COMPREHENSIVE METABOLIC PANE Néstor 09-20-2023 Albumin [Mass/Vol] 4.2 g/dL Normal 3.2-5.3 [facility] Comment on above: Performed By: #### C MP #### [facility] ([id number]) [address], [address] [place] [address] ALP [Catalytic activity/Vol] 36 U/L Low 39-130 [facility] Comment on above: Performed By: #### C MP #### [facility] ([id number]) [address], [address] [place] [address] ALT [Catalytic activity/Vol] 41 U/L High 0-40 [facility] Comment on above: Performed By: #### C MP #### [facility] ([id number]) [address], [address] [place] [address] Anion gap [Moles/Vol] 11 mmol/L Normal 5-15 [facility] Comment on above: Performed By: #### C MP #### [facility] ([id number]) [address], [address] [place] [address] AST [Catalytic activity/Vol] 35 U/L Normal 0-41 [facility] Comment on above: Performed By: #### C MP #### [facility] ([id number]) [address], [address] [place] [address] Bilirubin [Mass/Vol] 0.4 mg/dL Normal 0.3-1.2 [facility] Comment on above: Performed By: #### C MP #### [facility] ([id number]) [address], [address] [place] [address] Calcium [Mass/Vol] 8.9 mg/dL Normal 8.5-10.5 [facility] Comment on above: Performed By: #### C MP #### [facility] ([id number]) [address], [address] [place] [address] Chloride [Moles/Vol] 103 mmol/L Normal 98-109 [facility] Comment on above: Performed By: #### C MP #### [facility] ([id number]) [address], [address] [place] [address] CO2 [Moles/Vol] 26 mmol/L Normal 22-32 [facility] Comment on above: Performed By: #### C MP #### [facility] ([id number]) [address], [address] [place] [address] Creatinine [Mass/Vol] 1.07 mg/dL Normal 0.60-1.30 [facility] Comment on above: Result Comment: METH OD TRACEABLE TO IDMS STANDARD Performed By: #### C MP #### [facility] ([id number]) [address] [address] [place] [address] GFR/1.73 sq M.predicted among non-blacks MDRD (S/P/Bld) [Vol rate/Area] 77 mL/min/{1.73_m2} Normal >59 [facility] Comment on above: Result Comment: Reported eGFR is based on the CKD-EPI 2020 equation that does not use a race coefficient. Performed By: #### C MP #### [facility] ([id number]) [address], [address] [place] [address] Glucose [Mass/Vol] 164 mg/dL High 65-99 [facility] Comment on above: Performed By: #### C MP #### [facility] ([id number]) [address] [address] [place] [address] Potassium [Moles/Vol] 3.6 mmol/L Normal 3.5-5.0 [facility] Comment on above: Performed By: #### C MP #### [facility] ([id number]) [address] [address] [place] [address] Protein [Mass/Vol] 7.1 g/dL Normal 6.0-8.0 [facility] Comment on above: Performed By: #### C MP #### [facility] ([id number]) [address] [place] [address] Sodium [Moles/Vol] 140 mmol/L Normal 134-146 [facility] Comment on above: Performed By: #### C MP #### [facility] ([id number]) [address], [address] [place] [address] Urea nitrogen [Mass/Vol] 32 mg/dL High 5-27 [facility] Comment on above: Performed By: #### C MP #### [facility] ([id number]) [address], [address] [place] [address] Glucose Glucometer (BldC) [M ass/Vol]on 09-20-2023 Glucose [Mass/Vol] 250 mg/dL High 65-99 [facility] Glucose [Mass/Vol] 154 mg/dL High 65-99 [facility] Glucose [Mass/Vol] 185 mg/dL High 65-99 [facility] MAGNESIUMon 09-20-2023 Magnesium [Mass/Vol] 2.3 mg/dL Normal 1.8-2.6 [facility] Comment on above: Performed By: #### C BCA, 08470-4, 2777-1, 16531-6, PINR #### [facility] ([id number]) [address], [address] [place] [address] MR LUMBAR SPINE WO CONTon MR LUMBAR SPINE WO CONT MR LUMBAR SPINE WO CONT History: Low back pain Exam/Technique: Multiple MRI images of lumbar spine were obtained in the sagittal and axial planes. Comparison: 08/07/2023 Findings: At L4-5, there is a severe spinal stenosis, similar to the previous examination. There appears to be a posterior extradural 1.6 cm fluid collection compressing upon the posterior aspect of the thecal sac producing the spinal stenosis. Its appearance and position suggests this represents a large synovial cyst arising from the adjacent facet protruding into the spinal canal. No other lung spinal stenoses are identified. Multilevel facet arthropathy and degenerative disc disease again seen and is unchanged. IMPRESSION: * A severe spinal stenosis at L4-5, similar to the previous examination dated 08/07/2023. There appears to be a 1.6 cm fluid collection posterior to the thecal sac compressing upon the posterior aspect of the thecal sac resulting in the severe spinal stenosis. Its appearance suggests represent a large synovial cyst from the adjacent facet. * No other levels of spinal stenoses are identified. Finalized by Lula Flood MD on 09/20/2023 10:17 AM Normal [facility] Natriuretic peptide B [Mass/ Vol]on 09-20-2023 Natriuretic peptide B (Bld) [Mass/Vol] 71 pg/mL Normal <100.0 [facility] Comment on above: Performed By: #### 3 0934-4 #### [facility] ([id number]) [address], [address] [place] [address] PHOSPHORUSon 09-20-2023 Phosphate [Mass/Vol] 4.8 mg/dL Normal 2.4-4.9 [facility] Comment on above: Result Comment: SPEC IMEN HEMOLYZED, RESULTS INCREASED SLIGHTLY HEMOLYZED Performed By: #### C BCA, 35644-6, 2777-1, 86746-6, PINR #### [facility] ([id number]) [address], [address] [place] [address] POTASSIUMon 09-20-2023 Potassium [Moles/Vol] 4.2 mmol/L Normal 3.5-5.0 [facility] Comment on above: Performed By: #### C BCA, 81826-5, 2777-1, 20539-3, PINR #### [facility] ([id number]) [address], [address] [place] [address] PROTIME AND INRon 09-20-2023 INR Coag (PPP) [Relative time] 1.0 {INR} Normal 0.8-1.1 [facility] Comment on above: Performed By: #### C BCA, 06657-0, 2777-1, 01546-1, PINR #### [facility] ([id number]) [address] [place] [address] PT Coag (PPP) [Time] 12.0 s Normal 9.8-13.2 [facility] Comment on above: Performed By: #### C BCA, 82101-3, 2777-1, 06341-2, PINR #### [facility] ([id number]) [address] [place] [address] US ABDOMEN LMTDon 09-20-2023 US ABDOMEN LMTD US ABDOMEN LMTD Limited abdominal ultrasound on 09/20/2023 HISTORY: Transaminitis, diffuse abdominal pain, nausea COMPARISON: None TECHNIQUE: Grayscale sonographic imaging of the right upper quadrant was performed. FINDINGS: Pancreas is obscured by overlying bowel gas. Liver is diffusely echogenic with decreased through-transmission. No discrete hepatic mass or intrahepatic biliary ductal dilatation. Liver appears enlarged measuring up to 19.9 cm craniocaudal at the midclavicular line. Portal vein is patent with hepatopedal flow. No perihepatic ascites. Gallbladder demonstrates no wall thickening or pericholecystic fluid. No significant echogenic gallbladder content. Common bile duct is 5 mm in diameter. Negative sonographic Orozco sign reported IMPRESSION: * Echogenic liver parenchyma compatible with hepatocellular disease, most commonly steatosis. * Mild hepatomegaly. Finalized by Gee Langston MD on 09/20/2023 7:53 AM Normal [facility] XR SPINE LUMB BENDING ONLY 2 -3 VWSon 09-20-2023 XR SPINE LUMB BENDING ONLY 2-3 VWS XR SPINE LUMB BENDING ONLY 2-3 VWS XR SPINE LUMB BENDING ONLY 2-3 VWS CLINICAL HISTORY: Lumbar spine flexion and extension COMPARISON: None. 2 views obtained. FINDINGS: Alignment is normal there is no change in alignment with flexion or extension views. 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 IMPRESSION: Alignment is normal there is no change in alignment with flexion or extension views. 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 * Finalized by Max Shine MD on 09/20/2023 3:08 PM Normal [facility] aPTT Coag (PPP) [Time]on aPTT Coag (Bld) [Time] 32 s Normal 26-37 [facility] Comment on above: Performed By: #### C BCA, 02001-7, 2777-1, 65008-7, PINR #### [facility] ([id number]) [address], [address] [place] [address] AMMONIAon 09-19-2023 Ammonia (P) [Moles/Vol] 15 umol/L Normal 11-35 [facility] Comment on above: Performed By: #### B MP, 75915-1 #### [facility] ([id number]) [address] [facility] [place] [address] CBC AND AUTO DIFFon 09-19-19 ABSOLUTE BASOPHIL 0.0 X10E9/L Normal 0.0-0.2 [facility] Comment on above: Performed By: #### C BCA, CMP, , 79662-3, THYR #### [facility] ([id number]) [address] [place] [address] ABSOLUTE NEUTROPHIL 5.6 X10E9/L Normal 1.5-6.6 [facility] Comment on above: Performed By: #### C BCA, CMP, , 92880-6, THYR #### [facility] ([id number]) [address] [place] [address] Basophils/100 WBC (Bld) 0.3 % Normal [facility] Comment on above: Performed By: #### C BCA, CMP, , 56110-3, THYR #### [facility] ([id number]) [address] [place] [address] Eosinophils (Bld) [#/Vol] 0.2 10*3/uL Normal 0.0-0.4 [facility] Comment on above: Performed By: #### C BCA, CMP, 12548-4, 31915-6, THYR #### [facility] ([id number]) [address] [place] [address] Eosinophils/100 WBC (Bld) 2.4 % Normal [facility] Comment on above: Performed By: #### C BCA, CMP, 83732-7, 12365-3, THYR #### [facility] ([id number]) [address] [place] [address] Erythrocyte distribution width (RBC) [Ratio] 15.2 % High 11.5-15.0 [facility] Comment on above: Performed By: #### C BCA, CMP, 56817-7, 49418-1, THYR #### [facility] ([id number]) [address] [place] [address] Hematocrit (Bld) [Volume fraction] 43.8 % Normal 39-49 [facility] Comment on above: Performed By: #### C BCA, CMP, , 21149-7, THYR #### [facility] ([id number]) [address] [place] [address] Hemoglobin (Bld) [Mass/Vol] 14.9 g/dL Normal 13.0-17.0 [facility] Comment on above: Performed By: #### C BCA, CMP, 15685-9, 81418-7, THYR #### [facility] ([id number]) [address] [place] [address] Lymphocytes (Bld) [#/Vol] 1.8 10*3/uL Normal 1.0-3.5 [facility] Comment on above: Performed By: #### C BCA, CMP, 04313-2, 68553-2, THYR #### [facility] ([id number]) [address] [place] [address] Lymphocytes/100 WBC (Bld) 20.9 % Normal [facility] Comment on above: Performed By: #### C BCA, CMP, 46198-5, 17839-5, THYR #### [facility] ([id number]) [address] [place] [address] MCH (RBC) [Entitic mass] 30.4 pg Normal 27-34 [facility] Comment on above: Performed By: #### C BCA, CMP, 20606-7, 44190-3, THYR #### [facility] ([id number]) [address] [place] [address] MCHC (RBC) [Mass/Vol] 34.0 g/dL Normal 32-36 [facility] Comment on above: Performed By: #### C BCA, CMP, 99406-7, 35473-6, THYR #### [facility] ([id number]) [address] [place] [address] MCV (RBC) [Entitic vol] 90 fL Normal 80-100 [facility] Comment on above: Performed By: #### C BCA, CMP, 64475-9, 25054-6, THYR #### [facility] ([id number]) [address] [place] [address] Monocytes (Bld) [#/Vol] 0.8 10*3/uL Normal 0-0.9 [facility] Comment on above: Performed By: #### C BCA, CMP, 42592-7, 99366-1, THYR #### [facility] ([id number]) [address] [place] [address] Monocytes/100 WBC (Bld) 9.6 % Normal [facility] Comment on above: Performed By: #### C BCA, CMP, 25309-1, 84470-5, THYR #### [facility] ([id number]) [address] [place] [address] Neutrophils/100 WBC (Bld) 66.8 % Normal [facility] Comment on above: Performed By: #### C BCA, CMP, 23552-3, 56206-9, THYR #### [facility] ([id number]) [address] [place] [address] Platelet mean volume (Bld) [Entitic vol] 7.3 fL Normal 7-12 [facility] Comment on above: Performed By: #### C BCA, CMP, 35108-1, 03313-6, THYR #### [facility] ([id number]) [address] [place] [address] Platelets (Bld) [#/Vol] 335 10*3/uL Normal 150-450 [facility] Comment on above: Performed By: #### C BCA, CMP, 85022-0, 88151-8, THYR #### [facility] ([id number]) [address] [place] [address] RBC COUNT 4.89 X10E12/L Normal 4.10-5.70 [facility] Comment on above: Performed By: #### C BCA, CMP, 19787-4, 68485-6, THYR #### [facility] ([id number]) [address] [place] [address] WBC (Bld) [#/Vol] 8.4 10*3/uL Normal 4.0-11.0 [facility] Comment on above: Performed By: #### C BCA, CMP, 93974-7, 34304-3, THYR #### [facility] ([id number]) [address] [place] [address] COMPREHENSIVE METABOLIC PANE Néstor 09-19-2023 Albumin [Mass/Vol] 4.5 g/dL Normal 3.2-5.3 [facility] Comment on above: Performed By: #### C BCA, CMP, 01105-1, 97755-5, THYR #### [facility] ([id number]) [address] [place] [address] ALP [Catalytic activity/Vol] 43 U/L Normal 39-130 [facility] Comment on above: Performed By: #### C BCA, CMP, 03568-8, 57217-8, THYR #### [facility] ([id number]) [address] [place] [address]3235 ALT [Catalytic activity/Vol] 47 U/L High 0-40 [facility] Comment on above: Performed By: #### C BCA, CMP, 34138-8, 19700-5, THYR #### [facility] ([id number]) [address] [place] [address] [place] [address] Anion gap [Moles/Vol] 12 mmol/L Normal 5-15 [facility] Comment on above: Performed By: #### C BCA, CMP, , 45082-0, THYR #### [facility] ([id number]) [address] [place] [address] 25995 AST [Catalytic activity/Vol] 51 U/L High 0-41 [facility] Comment on above: Performed By: #### C BCA, CMP, , 68136-9, THYR #### [facility] ([id number]) [address] [place] [address]677 Bilirubin [Mass/Vol] 0.6 mg/dL Normal 0.3-1.2 [facility] Comment on above: Performed By: #### C BCA, CMP, 39366-9, 25651-9, THYR #### [facility] ([id number]) [address] [place] [address] Calcium [Mass/Vol] 9.2 mg/dL Normal 8.5-10.5 [facility] Comment on above: Performed By: #### C BCA, CMP, 32984-7, 21554-1, THYR #### [facility] ([id number]) [address] [place] [address]35 Chloride [Moles/Vol] 100 mmol/L Normal 98-109 [facility] Comment on above: Performed By: #### C BCA, CMP, , 76470-3, THYR #### [facility] ([id number]) [address] [place] [address] 22992 CO2 [Moles/Vol] 24 mmol/L Normal 22-32 [facility] Comment on above: Performed By: #### C BCA, CMP, , 38421-1, THYR #### [facility] ([id number]) [address] [place] [address] 31031 Creatinine [Mass/Vol] 1.13 mg/dL Normal 0.70-1.20 [facility] Comment on above: Result Comment: METH OD TRACEABLE TO IDMS STANDARD Performed By: #### C BCA, CMP, , 20640-5, THYR #### [facility] ([id number]) [address] [place] [address]221 GFR/1.73 sq M.predicted among non-blacks MDRD (S/P/Bld) [Vol rate/Area] 72 mL/min/{1.73_m2} Normal >59 [facility] Comment on above: Result Comment: Reported eGFR is based on the CKD-EPI 2020 equation that does not use a race coefficient. Performed By: #### C BCA, CMP, , 02317-5, THYR #### [facility] ([id number]) [address] [place] [address]8340 Glucose [Mass/Vol] 167 mg/dL High 65-99 [facility] Comment on above: Performed By: #### C BCA, CMP, 92796-2, 94661-1, THYR #### [facility] ([id number]) [address] [place] [address] 81896 Potassium [Moles/Vol] 3.6 mmol/L Normal 3.5-5.0 [facility] Comment on above: Performed By: #### C BCA, CMP, 99305-5, 26526-7, THYR #### [facility] ([id number]) [address] [place] [address] 65190 Protein [Mass/Vol] 8.2 g/dL High 6.0-8.0 [facility] Comment on above: Performed By: #### C BCA, CMP, 40832-2, 33033-2, THYR #### [facility] ([id number]) [address] [place] [address] 35307 Sodium [Moles/Vol] 136 mmol/L Normal 134-146 [facility] Comment on above: Performed By: #### C BCA, CMP, 60174-3, 13386-1, THYR #### [facility] ([id number]) [address] [place] [address] 61660 Urea nitrogen [Mass/Vol] 31 mg/dL High 5-27 [facility] Comment on above: Performed By: #### C BCA, CMP, 26860-1, 92409-8, THYR #### [facility] ([id number]) [address] [place] [address] BRAIN WO CONTon 4 CT BRAIN WO CONT CT BRAIN WO CONT STUDY: CT HEAD WITHOUT CONTRAST CLINICAL HISTORY: Altered mental status of unknown cause COMPARISON: Head CT dated 12/31/2019. TECHNIQUE: Multidetector axial images are obtained through the head. Automated exposure control was utilized. FINDINGS: No acute intracranial hemorrhage, midline shift or mass effect. Ventricular and cistern spaces are normal and symmetric. Bell and white matter differentiation is well preserved. No intra or extra-axial fluid collections or mass occupying lesions. Bilateral cerebellopontine angles are grossly unremarkable. Visualized orbital contents are normal. Mucoperiosteal thickening on the floor of the right maxillary sinus. Bilateral temporomandibular joints are normally aligned. IMPRESSION: No evidence of an acute intracranial process. All CT scans at this facility use dose modulation, iterative reconstruction, and/or weight based dosing when appropriate to reduce radiation dose to as low as reasonably achievable. Finalized by Berna Varghese MD on 09/19/2023 5:54 PM Normal [facility] CT LUMBAR SPINE W CONTon CT LUMBAR SPINE W CONT CT LUMBAR SPINE W CONT CT LUMBAR SPINE WITH CONTRAST COMPARISON: None. HISTORY: Low back pain. TECHNIQUE: Axial images of the lumbar spine obtained with sagittal and coronal 2-D reformatted images. 100 mL of Omnipaque 300 were administered intravenously Automatic exposure control (AEC) was utilized. FINDINGS: There is normal alignment of the lumbar spine with no evidence for an acute fracture or subluxation. Diffuse disc bulge is seen at the L4-5 and the L5-S1 level. There is severe narrowing of the central canal at the L4-5 level as well as bilateral neural foraminal narrowing with facet arthropathy There is bilateral neural foraminal narrowing with facet arthropathy at the L5-S1 level Incidental note is made of cholelithiasis IMPRESSION: No acute fracture. Degenerative changes at the L4-5 and L5-S1 level Incidental note is made of cholelithiasis All CT scans at this facility use dose modulation, iterative reconstruction, and/or weight based dosing when appropriate to reduce radiation dose to as low as reasonably achievable. Finalized by Nancy Forbes DO on 09/19/2023 6:16 PM Normal [place] [facility] Glucose Glucometer (BldC) [M ass/Vol]on 09-19-2023 Glucose [Mass/Vol] 171 mg/dL High 65-99 [facility] Glucose [Mass/Vol] 255 mg/dL High 65 - 99 mg/dL [facility] Interpretation and review of laboratory results Abnormal [facility] Glucose [Mass/Vol] 255 mg/dL High 65-99 [facility] MAGNESIUMon 09-19-2023 Magnesium [Mass/Vol] 2.3 mg/dL Normal 1.8-2.6 [facility] Comment on above: Performed By: #### C BCA, CMP, , 07726-0, THYR #### [facility] ([id number]) [address] [facility] [facility], [place] [address] THYROID PROFILEon 09-19-2023 Free T4 [Mass/Vol] 0.92 ng/dL Normal 0.61-1.60 [facility] Comment on above: Performed By: #### Aristeo FRANKEL, #### [facility] ([id number]) [address], [address] [place] [address] TSH 1.50 uIU/mL Normal 0.49-4.67 [facility] Comment on above: Performed By: #### Aristeo FRANKEL, #### [facility] ([id number]) [address], [address] [place] [address] TROPONIN Ion 09-19-2023 Troponin I.cardiac [Mass/Vol] 0.02 ng/mL Normal 0.00-0.04 [facility] Comment on above: Performed By: #### Aristeo FRANKEL, #### [facility] ([id number]) [address], [address] [place] [address] URN MACROSCOPIC NURon 2023 BILIRUBIN FERNANDO Negative Normal NEG [facility] Comment on above: Performed By: #### Aristeo FRANKEL, #### [facility] ([id number]) [address], [address] [place] [address] BLOOD/HGB FERNANDO Negative Normal NEG [facility] Comment on above: Performed By: #### B MARLYS, #### [facility] ([id number]) [address], [address] [place] [address] GLUCOSE FERNANDO >=1000 Abnormal NEG [facility] Comment on above: Performed By: #### Aristeo FRANKEL, #### [facility] ([id number]) [address], [address] [place] [address] KETONES FERNANDO Negative Normal NEG [facility] Comment on above: Performed By: #### Aristeo FRANKEL, #### [facility] ([id number]) [address] [place] [address] LEUKOCYTE ESTERASE FERNANDO Negative Normal NEG [facility] Comment on above: Performed By: #### Aritseo FRANKEL, #### [facility] ([id number]) [address] [place] [address] NITRITE FERNANDO Negative Normal NEG [facility] Comment on above: Performed By: #### Aristeo FRANKEL, #### [facility] ([id number]) [address] [place] [address] PH FERNANDO 5.5 Normal 5.0-8.5 [facility] Comment on above: Performed By: #### Aristeo FRANKEL, #### [facility] ([id number]) [address] [place] [address] PROTEIN FERNANDO Negative Normal NEG [facility] Comment on above: Performed By: #### Aristeo FRANKEL, #### [facility] ([id number]) [address] [place] [address] SPECIFIC GRAVITY FERNANDO 1.015 Normal 1.003-1.035 [facility] Comment on above: Performed By: #### Aristeo FRANKEL, #### [facility] ([id number]) [address], [address] [place] [address] UROBILINOGEN FERNANDO 0.2 eu/dL Normal <1.1 [facility] Comment on above: Performed By: #### Aristeo FRANKEL, #### [facility] ([id number]) [address] [place] [address] VENOUS BLOOD GASon 4 JOSE'S TEST Normal [facility] Comment on above: Performed By: #### B MARLYS, #### [facility] ([id number]) [address] [place] [address] Base excess Calc (Bld) [Moles/Vol] 1.0 mmol/L Normal 0.0-2.0 [facility] Comment on above: Performed By: #### B MARLYS, #### [facility] ([id number]) [address] [place] [address] Body temperature 98.6 [degF] Normal 37.0 [facility] Comment on above: Performed By: #### Aristeo FRANKEL, #### [facility] ([id number]) [address] [place] [address] HCO3 (Bld) [Moles/Vol] 25.0 mmol/L High 20.0-24.0 [facility] Comment on above: Performed By: #### B MARLYS, #### [facility] ([id number]) [address] [place] [address] Oxygen saturation in Blood 53.0 % Low >80.0 [facility] Comment on above: Performed By: #### B MARLYS, #### [facility] ([id number]) [address] [place] [address] OXYGEN SOURCE RoomAir Normal [facility] Comment on above: Performed By: #### B MARLYS, #### [facility] ([id number]) [address] [place] [address] PCO2, VENOUS 38.6 MMHG Normal 35-50 [facility] Comment on above: Performed By: #### B MARLYS, 38222-9 #### [facility] ([id number]) [address] [place] [address] PH, VENOUS 7.419 Normal 7.320-7.420 [facility] Comment on above: Performed By: #### B MARLYS, 93253-5 #### [facility] ([id number]) [address] [place] [address] PO2, VENOUS 28 MMHG Low 30-50 [facility] Comment on above: Performed By: #### B MARLYS, 96748-2 #### [facility] ([id number]) [address] [place] [address] SAMPLE SITE N/A Normal [facility] Comment on above: Performed By: #### B MARLYS, 64636-5 #### [facility] ([id number]) [address] [place] [address] SAMPLE TYPE VENOUS Normal [facility] Comment on above: Performed By: #### B MARLYS, 73417-0 #### [facility] ([id number]) [address] [place] [address] XR CHEST 2 VWSon 09-19-2023 XR CHEST 2 VWS XR CHEST 2 VWS PA and lateral chest: HISTORY: Cough. 2 views of the chest are obtained. Cardiac and mediastinal contours are unchanged. Pulmonary vasculature is congested. There is no pneumothorax. No obvious effusion or significant consolidation. IMPRESSION: Cardiomegaly and vascular congestion. Finalized by Reilly Hassan MD on 09/19/2023 5:55 PM Normal [facility] ALT No additional P-5'-P [Ca talytic activity/Vol]on 09-17-2023 ALT [Catalytic activity/Vol] 29 U/L Normal 0-40 [facility] Comment on above: Performed By: #### 1 744-2, 1920-04, , 2088-09 #### [facility] ([id number]) [address] [place] [address] Constantino 09-17-2023 AST [Catalytic activity/Vol] 22 U/L Normal 0-41 [facility] Comment on above: Performed By: #### 1 744-2, 1920-04, , 2088-09 #### [facility] ([id number]) [address] [address] [place] [address] DIRECT LDLon 09-17-2023 Cholesterol in LDL [Mass/Vol] 101 mg/dL Normal <130 [facility] Comment on above: Result Comment: LDL <100 mg/dL - Desirable LDL 130-159 mg/dL - Borderline High Risk LDL >160 mg/dL - High Risk Performed By: #### 1 744-2, 1920-04, , 2088-09 #### [facility] ([id number]) [address] [place] [address] Lipid 1996 panelon Cholesterol [Mass/Vol] 214 mg/dL High 150-200 [facility] Comment on above: Performed By: #### 1 744-2, 1920-04, , 2088-09 #### [facility] ([id number]) [address] [facility] [place] [address] Cholesterol in HDL [Mass/Vol] 37 mg/dL Low >39 [facility] Comment on above: Result Comment: HDL <40 mg/dL - High Risk HDL > or = 40mg/dL- Desirable HDL >60 mg/dL - Negative Risk Performed By: #### 1 744-2, 1920-04, , 2088-09 #### [facility] ([id number]) [address], [facility] [address] [place] [address] Cholesterol in VLDL [Mass/Vol] 90 mg/dL High 0-30 [facility] Comment on above: Performed By: #### 1 744-2, 1920-04, , 2088-09 #### [facility] ([id number]) [address], [facility] [address] [place] [address] CHOLESTEROL:HDL 5.8 High 1.0-5.0 [facility] Comment on above: Performed By: #### 1 744-2, 1920-04, , 2088-09 #### [facility] ([id number]) [address], [facility] [address] [place] [address] LDL (CALC) RESULT NOT REPORTED DUE TO HIGH TRIGLYCERIDE Normal <130 [facility] Comment on above: Performed By: #### 1 744-2, 1920-04, , 2088-09 #### [facility] ([id number]) [address], [facility] [address] [place] [address] Triglyceride [Mass/Vol] 448 mg/dL High 27-150 [facility] Comment on above: Performed By: #### 1 744-2, 1920-04, , 2088-09 #### [facility] ([id number]) [address], [facility] [address] [place] [address] BASIC METABOLIC PANLon 09-14 Anion gap [Moles/Vol] 11 mmol/L Normal 5-15 [facility] Comment on above: Performed By: #### [place], [address]-5 #### [facility] ([id number]) [address] [place] [address] Calcium [Mass/Vol] 9.3 mg/dL Normal 8.5-10.5 [facility] Comment on above: Performed By: #### Aristeo FRANKEL, #### [facility] ([id number]) [address] [place] [address] Chloride [Moles/Vol] 103 mmol/L Normal 98-109 [facility] Comment on above: Performed By: #### Aristeo FRANKEL, #### [facility] ([id number]) [address] [place] [address] CO2 [Moles/Vol] 26 mmol/L Normal 22-32 [facility] Comment on above: Performed By: #### Aristeo FRANKEL, #### [facility] ([id number]) [address] [place] [address] Creatinine [Mass/Vol] 0.98 mg/dL Normal 0.60-1.30 [facility] Comment on above: Result Comment: METH OD TRACEABLE TO IDMS STANDARD Performed By: #### Aristeo FRANKEL, #### [facility] ([id number]) [address], [address] [place] [address] GFR/1.73 sq M.predicted among non-blacks MDRD (S/P/Bld) [Vol rate/Area] 86 mL/min/{1.73_m2} Normal >59 [facility] Comment on above: Result Comment: Reported eGFR is based on the CKD-EPI 1 equation that does not use a race coefficient. Performed By: #### Aristeo FRANKEL, #### [facility] ([id number]) [address], [address] [place] [address] Glucose [Mass/Vol] 182 mg/dL High 65-99 [facility] Comment on above: Performed By: #### Aristeo FRANKEL, #### [facility] ([id number]) [address] [place] [address] Potassium [Moles/Vol] 4.1 mmol/L Normal 3.5-5.0 [facility] Comment on above: Performed By: #### Aristeo FRANKEL, 69963-9 #### [facility] ([id number]) [address] [address] [place] [address] Sodium [Moles/Vol] 140 mmol/L Normal 134-146 [facility] Comment on above: Performed By: #### Aristeo FRANKEL, 07651-0 #### [facility] ([id number]) [address], [facility] [address] [place] [address] Urea nitrogen [Mass/Vol] 29 mg/dL High 5-27 [facility] Comment on above: Performed By: #### Aristeo FRANKEL, 71566-3 #### [facility] ([id number]) [address] [address] [place] [address] MAGNESIUMon 09-14-2023 Magnesium [Mass/Vol] 2.4 mg/dL Normal 1.8-2.6 [facility] Comment on above: Performed By: #### Aristeo FRANKEL, 64745-5 #### [facility] ([id number]) [address] [address] [place] [address] Bacteria identifiedon 2022 Bacteria identified Cx Nom (U) Test: Urine Culture Specimen Type: Urine Specimen Date: 07/21/2023 11:49 AM Result Date: 07/23/2023 2:29 PM Result Status: Final result Abnormal: No Resulting Lab: [facility] [address] [place] [address] CULTURE No growth [facility] Comment on above: Performed By: #### 6 30-4 #### CHRIS Virk ([id number]) [facility] ([facility]) [address] [place], [place] [id number] Office Visit (Cardiology)on 03-15-2023 Follow-up visit Diagnoses/Problems Assessed CAD, multiple vessel (414.00) (I25.10) History of coronary artery bypass graft (V45.81) (Z95.1) Hyperlipidemia (272.4) (E78.5) Hypertension (401.9) (I10) Never a smoker Diabetes mellitus (250.00) (E11.9) Class 1 obesity with body mass index (BMI) of 34.0 to 34.9 in adult (278.00,V85.34) (E66.9,Z68.34) Orders CAD, multiple vessel, History of coronary artery bypass graft Start: Rosuvastatin Calcium 5 MG Oral Tablet; TAKE 1 TABLET DAILY CAD, multiple vessel, History of coronary artery bypass graft, Hyperlipidemia ALT - Alanine Aminotransferase, Serum; Status:Active - Retrospective Authorization; Requested for:[id number]; AST; Status:Active - Retrospective Authorization; Requested for:[id number]; Lipid Panel; Status:Active - Retrospective Authorization; Requested for:[id number]; CAD, multiple vessel, Hypertension IO EKG Electrocardiogram- 12 Lead; Status:Complete; Done: [id number] Class 1 obesity with body mass index (BMI) of 34.0 to 34.9 in adult Healthy Weight Tips; Status:Complete - Retrospective Authorization; Done: [id number] Some eating tips that can help you lose weight.; Status:Complete - Retrospective Authorization; Done: [id number] SocHx: Never a smoker Tobacco Use Screening; Status:Complete; Done: [id number] Patient Instructions Please bring all medicines, vitamins, and herbal supplements with you when you come to the office. Prescriptions will not be filled unless you are compliant with your follow up appointments or have a follow up appointment scheduled as per instruction of your physician. Refills should be requested at the time of your visit. start Rosuvastatin Follow up in 6 months Chief Complaint TOM KHAN is being seen for ABN EKG. History of Present Illness Patient is here for follow-up and management for coronary artery disease with bypass surgery back in 2008, hypertension, hyperlipidemia. I have not seen him in more than 2 years. He has been been noncompliant with his follow-up. He recently underwent echocardiogram that showed borderline LV systolic dysfunction. His medication was adjusted and was started on Entresto by his family physician. He denies complaint of chest pain, lightheadedness, dizziness or syncope. He report he can walk 3 miles a day. He reports he has been having mental issues and his reports problem with anxiety and depression. He has not been taking any statin therapy. He does not recall if he had truly a side effect or intolerance to statin. His recent lab continues to demonstrate poorly controlled lipid profile ASSESSMENT: 1. History of coronary artery disease, with remote bypass surgery, stable. No anginal symptoms reported. He reports functional class I. 2. Hypertension, controlled. 3. Hyperlipidemia, suboptimally controlled. Has not been taking any lipid therapy 4. Diabetes mellitus 5. Depression 6. Depression and anxiety 7. Status knee replacement surgery 8. We have DVT completed 6 months of anticoagulation with no recurrence 9. Noncompliance with follow-up 10. Recent echo showed LVEF around 50-55% Plan 1. Patient appears to be on appropriate medical therapy except statin 2. Patient appears to be stable from cardiovascular standpoint 3. I encouraged the patient to lose weight and exercise 4. I recommended initiating treatment with Crestor 5 mg daily and plan to repeat his lipid profile 5. We discussed proceeding with stress test but the patient reports he had good exercise tolerance and has not had any anginal symptoms and he is reluctant to proceed 6. We will see him back in the office 6 months or earlier if the need arise Surgical History Problems History of Cataract surgery History of Complete colonoscopy History of Coronary artery bypass graft History of Eye surgery History of Knee replacement History of Oral surgery History of Rotator cuff repair History of Skin biopsy Current Meds Medication NameInstruction busPIRone HCl - 30 MG Oral TabletI TAB EVERY AM AND AND HALF TAB IN EVENING Chlorthalidone 25 MG Oral TabletTAKE 1 TABLET Daily prn DULoxetine HCl - 30 MG Oral Capsule Delayed Release ParticlesI TAB AT BEDTIME WITH 60 MG IN AM DULoxetine HCl - 60 MG Oral Capsule Delayed Release ParticlesTAKE 1 TAB IN THE AM WITH 30 MG AT BEDTIME Entresto 24-26 MG Oral TabletTake 1 tablet twice daily HumaLOG KwikPen 200 UNIT/ML Subcutaneous Solution Pen-injectorPLEASE SEE ATTACHED FOR DETAILED DIRECTIONS Jardiance 10 MG Oral TabletTAKE 1 TABLET BY MOUTH ONCE DAILY Labetalol HCl - 200 MG Oral TabletTAKE 1 TABLET EVERY 12 HOURS DAILY. LORazepam 1 MG Oral TabletTAKE 1MG IN AM 1/2 TAB AT PM NEEDED Melatonin 3 MG Oral TabletTAKE DIRECTED. Ozempic (1 MG/DOSE) 4 MG/3ML Subcutaneous Solution Pen-injectorinject as directed once weekly Gian Cespedes SoloStar 300 UNIT/ML Subcutaneous Solution Pen-injectorinject as directed Vitamin B-12 100 MCG Oral TabletTake 1 tablet twice daily Patient brou (more content not included)... Normal [facility] Tobacco Screening.on 023 Fall risk assessment b) One or more falls in the last year [facility] 250 DO Work Phone: Tobacco use status [facility] b) No [facility] 250 DO Work Phone: XR CHEST AP/PA AND LATon XR CHEST AP/PA AND LAT EXAMINATION: XR CHEST AP/PA AND LAT 01/04/2023 7:51 pm HISTORY: ORDERING SYSTEM PROVIDED HISTORY: cough and SOB - chronic, TECHNOLOGIST PROVIDED HISTORY: Illness/Other Reason for exam: cough Cancer History: unk Surgery, RadiationHistory: unk Encounter Type: Initial Additional signs and symptoms: SOB, open heart 09 ORDERING SYSTEM PROVIDED DIAGNOSIS CODES: R05.9 Cough, unspecified type COMPARISON: CT chest from 06/23/2021. FINDINGS: Trachea, mediastinum and heart size are unremarkable. The lungs show hyperaeration without infiltrate or nodule or effusion. Diaphragm and bony elements are intact. Sternal wires indicate prior surgery. IMPRESSION: Nonacute portable chest. Workstation ID: [id number] Dictated by: NIKO HUDSON on SunJanuary 04, 2023 8:22:49 PM EDT Transcribed by: NIKO HUDSON on SunJanuary 04, 2023 8:22:49 PM EDT Finalized by: NIKO HUDSON on SunJanuary 04, 2023 8:22:49 PM EDT [facility] Comment on above: Order Comment: Injur y/Trauma or Illness?:Illness/Other How long have you had these symptoms (acute/chronic)?:Acute Reason for exam?:cough History of cancer?:unk Surgeries, chemotherapy, or radiation?:unk Type of Exam?:Initial Additional signs and symptoms?:SOB, open heart 09 XR Chest AP/PA and LATon Nonacute portable chest. Workstation ID: [id number] GE RIS EXAMINATION: XR CHEST AP/PA AND LAT 01/04/2023 7:51 pm HISTORY: ORDERING SYSTEM PROVIDED HISTORY: cough and SOB - chronic, TECHNOLOGIST PROVIDED HISTORY: Illness/Other Reason for exam: cough Cancer History: unk Surgery, RadiationHistory: unk Encounter Type: Initial Additional signs and symptoms: SOB, open heart 09 ORDERING SYSTEM PROVIDED DIAGNOSIS CODES: R05.9 Cough, unspecified type COMPARISON: CT chest from 06/23/2021. FINDINGS: Trachea, mediastinum and heart size are unremarkable. The lungs show hyperaeration without infiltrate or nodule or effusion. Diaphragm and bony elements are intact. Sternal wires indicate prior surgery. [facility] Niko Hudson, DO - 01/04/2023 EXAMINATION: XR CHEST AP/PA AND LAT 01/04/2023 7:51 pm HISTORY: ORDERING SYSTEM PROVIDED HISTORY: cough and SOB - chronic, TECHNOLOGIST PROVIDED HISTORY: Illness/Other Reason for exam: cough Cancer History: unk Surgery, RadiationHistory: unk Encounter Type: Initial Additional signs and symptoms: SOB, open heart 09 ORDERING SYSTEM PROVIDED DIAGNOSIS CODES: R05.9 Cough, unspecified type COMPARISON: CT chest from 06/23/2021. FINDINGS: Trachea, mediastinum and heart size are unremarkable. The lungs show hyperaeration without infiltrate or nodule or effusion. Diaphragm and bony elements are intact. Sternal wires indicate prior surgery. IMPRESSION: Nonacute portable chest. Workstation ID: [id number] [facility] Radiology Study observation (narrative) [facility] XR Chest AP/PA and LATOrdere d By: Niko Hudson on 01-04-2023 [facility] Work Phone: VIT B12 AND FOLATEon 022 Cobalamin (Vitamin B12) [Mass/Vol] 483.0 pg/mL Normal 193.0-986.0 [facility] Comment on above: Performed By: #### B 12FOL #### [facility] [address] [place] [address] Dr. Cary Malagon FOLATE 21.00 ng/mL Normal 8.60-58.90 [facility] Comment on above: Performed By: #### B 12FOL #### [facility] [address] [place] [address] Dr. Cary Malagon [facility] 03-17-2022 Albumin [Mass/Vol] 4.4 g/dL Normal 3.6-5.1 [facility] Comment on above: Performed By: #### 4 96, 72470, 7600 #### [facility] [place] [address] Supervisor Finishing Room: Ck Wallis MD Albumin/Globulin [Mass ratio] 1.7 {ratio} Normal 1.0-2.5 [facility] Comment on above: Performed By: #### 4 96, 43442, 7600 #### [facility] [place] [address] Supervisor Finishing Room: Ck Wallis MD ALP [Catalytic activity/Vol] 45 U/L Normal 35-144 [facility] Comment on above: Performed By: #### 4 96, 29079, 0 #### [facility] [place] [address] Supervisor Finishing Room: Ck Wallis MD ALT [Catalytic activity/Vol] 29 U/L Normal 9-46 [facility] Comment on above: Performed By: #### 4 96, 72462, 7600 #### [facility] [place] [address] Supervisor Finishing Room: Ck Wallis MD AST [Catalytic activity/Vol] 18 U/L Normal 10-35 [facility] Comment on above: Performed By: #### 4 96, 76991, 7600 #### [facility] [place] [address] Supervisor Finishing Room: Ck Wallis MD Bilirubin [Mass/Vol] 0.3 mg/dL Normal 0.2-1.2 [facility] Comment on above: Performed By: #### 4 96, 71241, 7600 #### [facility] [place] [address] Supervisor Finishing Room: Ck Wallis MD BUN/CREATININE RATIO NOT APPLICABLE Normal 6-22 [facility] Comment on above: Performed By: #### 4 96, 24351, 7600 #### [facility] [address], [address] [place] [address] Supervisor Finishing Room: Ck Wallis MD Calcium [Mass/Vol] 9.5 mg/dL Normal 8.6-10.3 [facility] Comment on above: Performed By: #### 4 96, 67610, 7600 #### [facility] [place] [address] Supervisor Finishing Room: Ck Wallis MD Chloride [Moles/Vol] 101 mmol/L Normal 98-110 [facility] Comment on above: Performed By: #### 4 96, 67317, 7600 #### [facility] [place] [address] Supervisor Finishing Room: Ck Wallis MD CO2 [Moles/Vol] 23 mmol/L Normal 20-32 [facility] Comment on above: Performed By: #### 4 96, 83906, 7600 #### [facility] [place] [address] Supervisor Finishing Room: Ck Wallis MD Creatinine [Mass/Vol] 0.99 mg/dL Normal 0.70-1.35 [facility] Comment on above: Performed By: #### 4 96, 45090, 7600 #### [facility] [place] [address] Supervisor Finishing Room: Ck Wallis MD GFR/1.73 sq M.predicted among non-blacks MDRD (S/P/Bld) [Vol rate/Area] 85 mL/min/{1.73_m2} Normal > OR = 60 [facility] Comment on above: Result Comment: The eGFR is based on the CKD-EPI 2020 equation. To calculate the new eGFR from a previous Creatinine or Cystatin C result, go to https://www.kidney.org/professionals/ kdoqi/gfr%5Fcalculator Performed By: #### 4 96, 01661, 7600 #### [facility] [place] [address] Supervisor Finishing Room: Ck Wallis MD Globulin (S) [Mass/Vol] 2.6 g/dL Normal 1.9-3.7 [facility] Comment on above: Performed By: #### 4 96, 51300, 0 #### [facility] [place] [address] Supervisor Finishing Room: Ck Wallis MD Glucose [Mass/Vol] 128 mg/dL High 65-99 [facility] Comment on above: Result Comment: Fasting reference interval For someone without known diabetes, a glucose value >125 mg/dL indicates that they may have diabetes and this should be confirmed with a follow-up test. Performed By: #### 4 96, 33550, 0 #### [facility] [place] [address] Supervisor Finishing Room: Ck Wallis MD Potassium [Moles/Vol] 4.0 mmol/L Normal 3.5-5.3 [facility] Comment on above: Performed By: #### 4 96, 19445, 0 #### [facility] [place] [address] Supervisor Finishing Room: Ck Wallis MD Protein [Mass/Vol] 7.0 g/dL Normal 6.1-8.1 [facility] Comment on above: Performed By: #### 4 96, 07062, 0 #### [facility] [place] [address] Supervisor Finishing Room: Ck Wallis MD Sodium [Moles/Vol] 136 mmol/L Normal 135-146 [facility] Comment on above: Performed By: #### 4 96, 13261, 7600 #### [facility] [place] [address] Supervisor Finishing Room: Ck Wallis MD Urea nitrogen [Mass/Vol] 23 mg/dL Normal 7-25 [facility] Comment on above: Performed By: #### 4 96, 04869, 7600 #### [facility] [place] [address] Supervisor Finishing Room: Ck Wallis MD HEMOGLOBIN A1c 03-17-2022 HEMOGLOBIN A1c 7.3 % of total Hgb High <5.7 [facility] Comment on above: Result Comment: For someone without known diabetes, a hemoglobin A1c value of 6.5% or greater indicates that they may have diabetes and this should be confirmed with a follow-up test. For someone with known diabetes, a value <7% indicates that their diabetes is well controlled and a value greater than or equal to 7% indicates suboptimal control. A1c targets should be individualized based on duration of diabetes, age, comorbid conditions, and other considerations. Currently, no consensus exists regarding use of hemoglobin A1c for diagnosis of diabetes for children. Performed By: #### 4 96, 62634, 7600 #### [facility] [address], [address] [place] [address] Supervisor Finishing Room: Ck Wallis MD LIPID PANEL, [facility] 03-03 Cholesterol [Mass/Vol] 247 mg/dL High <200 [facility] Comment on above: Order Comment: FASTI NG:YES FASTING: YES Performed By: #### 4 96, 29365, 7600 #### [facility] [address], [address] [place] [address] Supervisor Finishing Room: Ck Wallis MD Cholesterol in HDL [Mass/Vol] 39 mg/dL Low > OR = 40 [facility] Comment on above: Order Comment: FASTI NG:YES FASTING: YES Performed By: #### 4 96, 20584, 7600 #### [facility] [address], [address] [place] [address] Supervisor Finishing Room: Ck Wallis MD Cholesterol.total/ Cholesterol in HDL [Mass ratio] 6.3 {ratio} High <5.0 [facility] Comment on above: Order Comment: FASTI NG:YES FASTING: YES Performed By: #### 4 96, 52183, 7600 #### [facility] [address], [address] [place] [address] Supervisor Finishing Room: Ck Wallis MD LDL-CHOLESTEROL Normal [facility] Comment on above: Order Comment: FASTI NG:YES FASTING: YES Result Comment: LDL cholesterol not calculated. Triglyceride levels greater than 400 mg/dL invalidate calculated LDL results. Reference range: <100 Desirable range <100 mg/dL for primary prevention; <70 mg/dL for patients with CHD or diabetic patients with > or = 2 CHD risk factors. LDL-C is now calculated using the Kimo calculation, which is a validated novel method providing better accuracy than the Friedewald equation in the estimation of LDL-C. Nathan SS et al. KETTY. 2013;310(47): 4094-8601 (http://education.[employer]/faq/SER660) Performed By: #### 4 96, 71779, 7600 #### [facility] [address], [address] [place] [address] Supervisor Finishing Room: Ck Wallis MD NON HDL CHOLESTEROL 208 mg/dL (calc) High <130 [facility] Comment on above: Order Comment: FASTI NG:YES FASTING: YES Result Comment: For patients with diabetes plus 1 major ASCVD risk factor, treating to a non-HDL-C goal of <100 mg/dL (LDL-C of <70 mg/dL) is considered a therapeutic option. Performed By: #### 4 96, 75676, 7600 #### [facility] [address], [address] [place] [address] Supervisor Finishing Room: Ck Wallis MD Triglyceride [Mass/Vol] 590 mg/dL High <150 [facility] Comment on above: Order Comment: FASTI NG:YES FASTING: YES Result Comment: If a non-fasting specimen was collected, consider repeat triglyceride testing on a fasting specimen if clinically indicated. Perera et al. J. of Clin. Lipidol. 2015;9:129-169. There is increased risk of pancreatitis when the triglyceride concentration is very high (> or = 500 mg/dL, especially if > or = 1000 mg/dL). Trever et al. J. of Clin. Lipidol. 2015;9:129-169. Performed By: #### 4 96, 28076, 7600 #### [facility] [address], [address] [place] [address] Supervisor Finishing Room: Ck Wallis MD US HARVEY DOP LEG RTon 12-20-19 22 US HARVEY DOP LEG RT Ultrasound venous du plex scan right lower extremity CLINICAL: Swelling and redness ankle. TECHNIQUE: Bell-scale, color Doppler and Duplex examination of the right lower extremity was performed with and without provocative maneuvers. FINDINGS: Comparison: 04/08/2021. Sonographic examination of the lower extremity deep venous system to include the common femoral, superficial femoral and popliteal veins, demonstrates normal compressibility, color-flow, respiratory variation, and augmentation. The origin of the greater saphenous vein demonstrates normal compression, and there is normal color-flow in the proximal profunda femoral vein. There is normal compression of the peroneal, posterior tibial, and anterior tibial veins. Normal compression of the small saphenous veins and distal greater saphenous vein. IMPRESSION: 1. No deep venous thrombosis in the right lower extremity. Electronically authenticated by: SAMI BRUNSON Date: 2021-12-19 09:12 Normal [facility] CBC AUTO DIFFon 12-18-2021 BASO # 0.0 103/ul Normal 0.0-0.1 [facility] Comment on above: Performed By: #### C BC #### [facility] [address] [place] [address] Dr. Cary Malagon Basophils/100 WBC (Bld) 0.3 % Normal 0.2-2.0 [facility] Comment on above: Performed By: #### C BC #### [facility] [address] [place] [address] Dr. Cary Malagon EO # 0.1 103/ul Normal 0.0-0.7 [facility] Comment on above: Performed By: #### C BC #### [facility] [address] [place] [address] [address] Cary Malagon Eosinophils/100 WBC (Bld) 1.4 % Normal 0.9-7.0 [facility] Comment on above: Performed By: #### C BC #### [facility] [address] [place] [address] Dr. Cary Malagon Erythrocyte distribution width (RBC) [Ratio] 14.7 % Normal 11.0-15.0 [facility] Comment on above: Performed By: #### C BC #### [facility] [address] [place] [address] [address] Cary Malagon Hematocrit (Bld) [Volume fraction] 37.7 % Critically low 42.0-54.0 [facility] Comment on above: Performed By: #### C BC #### [facility] [address] [place] [address] [address] Cary Malagon Hemoglobin (Bld) [Mass/Vol] 12.8 g/dL Critically low 14.0-18.0 [facility] Comment on above: Performed By: #### C BC #### [facility] [address] [place] [address] Dr. Cary Malagon IG # 0.04 10e3/ul Critically high 0.00-0.03 [facility] Comment on above: Performed By: #### C BC #### [facility] [address] [place] [address] Dr. Cary Malagon IG % 0.4 % Normal 0.0-0.5 [facility] Comment on above: Performed By: #### C BC #### [facility] [address] [place] [address] Dr. Cary Malagon LYMPH # 1.4 103/ul Normal 1.2-3.8 [facility] Comment on above: Performed By: #### C BC #### [facility] [address] [place] [address] Dr. Cary Malagon Lymphocytes/100 WBC (Bld) 14.8 % Critically low 20.5-60.0 [facility] Comment on above: Performed By: #### C BC #### [facility] [address] [place] [address] Dr. Cary Malagon MANUAL DIFF REQ NO Normal [facility] Comment on above: Performed By: #### C BC #### [facility] [address] [place] [address] Dr. Cary Malagon MCH (RBC) [Entitic mass] 30.2 pg Normal 25.9-34.0 [facility] Comment on above: Performed By: #### C BC #### [facility] [address] [place] [address] [address] Cary Malagon MCHC (RBC) [Mass/Vol] 34.0 g/dL Normal 29.9-35.2 [facility] Comment on above: Performed By: #### C BC #### [facility] [address] [place] [address] [address] Cary Malagon MCV (RBC) [Entitic vol] 88.9 fL Normal 80.0-94.0 [facility] Comment on above: Performed By: #### C BC #### [facility] [address] [place] [address] [address] Cary Malagon MONO # 1.0 103/ul Critically high 0.3-0.8 [facility] Comment on above: Performed By: #### C BC #### [facility] [address] [place] [address] Dr. Cary Malagon Monocytes/100 WBC (Bld) 10.8 % Normal 1.7-12.0 [facility] Comment on above: Performed By: #### C BC #### [facility] [address] [place] [address] [address] Cary Malagon NEUT # 6.7 103/ul Critically high 1.4-6.5 [facility] Comment on above: Performed By: #### C BC #### [facility] [address] [place] [address] Dr. Cary Malagon Neutrophils/100 WBC (Bld) 72.3 % Normal 43.0-75.0 [facility] Comment on above: Performed By: #### C BC #### [facility] [address] [place] [id number] Cary Malagon Platelet mean volume (Bld) [Entitic vol] 9.0 fL Critically low 9.5-13.5 [facility] Comment on above: Performed By: #### C BC #### [facility] [address] [place] [address] Dr. Cary Malagon PLT 242 103/ul Normal 150-450 [facility] Comment on above: Performed By: #### C BC #### [facility] [address] [place] [address] Dr. Cary Malagon RBC 4.24 106/ul Critically low 4.70-6.10 [facility] Comment on above: Performed By: #### C BC #### [facility] [address] [place] [address] Dr. Cary Malagon WBC 9.3 103/ul Normal 4.0-11.0 [facility] Comment on above: Performed By: #### C BC #### [facility] [address] [place] [address] Dr. Cary Malagon CULTURE BLOODon 12-18-2021 Microscopic examination of blood, culture Culture Observations: NO GROWTH AT 5 DAYS. Isolate 1 BC_BA_NA Normal [facility] Comment on above: Performed By: #### C BC #### [facility] [address] [place] [address] Dr. Cary Malagon D-DIMERon 12-18-2021 D-DIMER 3.78 mg/L FEU Critically high 0.19-0.50 [facility] Comment on above: Performed By: #### C MP #### [facility] [address] [place] [address] Dr. Cary Malagon D-DIMER COMMENTS SEE BELOW Normal [facility] Comment on above: Result Comment: Incr eases in D-Dimer concentration observed with thromboembolic events can be variable due to localization, size, and age of the thrombus. Therefore, a thromboembolic event cannot be diagnosed with certainty on the basis of the reference range. D-Dimers may also be elevated for a variety of disorders including: advanced age, , coronary disease, cancer, liver disease, infection, inflammation, hematoma, DIC, trauma, post-surgery, diabetes, thrombolytic or anticoagulant therapy, stress, and generalized hospitalization. Performed By: #### C MP #### [facility] [address] [place] [address] Dr. Cary Malagon PROF 14(COMP METB)on 022 Albumin [Mass/Vol] 3.4 g/dL Normal 3.4-5.0 [facility] Comment on above: Performed By: #### C MP #### [facility] [address] [place] [address] Dr. Cary Malagon Albumin/Globulin [Mass ratio] 0.9 {ratio} Normal [facility] Comment on above: Performed By: #### C MP #### [facility] [address] [place] [address] Dr. Cary Malagon ALP [Catalytic activity/Vol] 63 U/L Normal 46-116 [facility] Comment on above: Performed By: #### C MP #### [facility] [address] [place] [address] Dr. Cary Malagon ALT [Catalytic activity/Vol] 40 U/L Normal 16-63 [facility] Comment on above: Performed By: #### C MP #### [facility] [address] [place] [address] Dr. Cary Malagon Anion gap [Moles/Vol] 17.2 mmol/L Normal [facility] Comment on above: Performed By: #### C MP #### [facility] [address] [place] [address] Dr. Cary Malagon AST [Catalytic activity/Vol] 19 U/L Normal 15-37 [facility] Comment on above: Performed By: #### C MP #### [facility] [address] [place] [address] Dr. Cary Malagon Bilirubin [Mass/Vol] 0.4 mg/dL Normal 0.2-1.3 [facility] Comment on above: Performed By: #### C MP #### [facility] [address] [place] [address] Dr. Cary Malagon Calcium [Mass/Vol] 8.7 mg/dL Normal 8.5-10.1 [facility] Comment on above: Performed By: #### C MP #### [facility] [address] [place] [address] Dr. Cary Malagon Chloride [Moles/Vol] 99 mmol/L Normal 98-107 [facility] Comment on above: Performed By: #### C MP #### [facility] [address] [place] [address] Dr. Cary Malagon CO2 [Moles/Vol] 22.0 mmol/L Normal 22.0-30.0 [facility] Comment on above: Performed By: #### C MP #### [facility] [address] [place] [address] [address] Cary Malagon Creatinine [Mass/Vol] 1.26 mg/dL Critically high 0.66-1.25 [facility] Comment on above: Performed By: #### C MP #### [facility] [address] [place] [address] [address] Cary Malagon EGFR-AF GIBRALTARIAN >60 Normal >=60 [facility] Comment on above: Performed By: #### C MP #### [facility] [address] [place] [address] [address] Cary Malagon EGFR-NON AF GIBRALTARIAN 58 mL/min/1.73m2 Critically low >=60 [facility] Comment on above: Performed By: #### C MP #### [facility] [address] [place] [address] Dr. Cary Malagon Globulin (S) [Mass/Vol] 3.9 g/dL Normal [facility] Comment on above: Performed By: #### C MP #### [facility] [address] [place] [address] Dr. Cary Malagon Glucose [Mass/Vol] 272 mg/dL Critically high 74-106 [facility] Comment on above: Performed By: #### C MP #### [facility] [address] [place] [address] Dr. Cary Malagon Potassium [Moles/Vol] 3.2 mmol/L Critically low 3.4-5.0 [facility] Comment on above: Performed By: #### C MP #### [facility] [address] [place] [address] [address] Cary Malagon Protein [Mass/Vol] 7.3 g/dL Normal 6.1-8.2 [facility] Comment on above: Performed By: #### C MP #### [facility] [address] [place] [address] Dr. Cary Malagon Sodium [Moles/Vol] 135 mmol/L Critically low 137-145 [facility] Comment on above: Performed By: #### C MP #### [facility] [address] [place], [place] [address] Dr. Cary Malagon Urea nitrogen [Mass/Vol] 25.0 mg/dL Critically high 7.0-18.0 [facility] Comment on above: Performed By: #### C MP #### [facility] [address] [place], [place] [address] Dr. Cary Malagon Urea nitrogen/Creatinin e [Mass ratio] 19.8 mg/mg Normal [facility] Comment on above: Performed By: #### C MP #### [facility] [address] [place], [place] [address] Dr. Cary Malagon ALBUMIN, RANDOM URINE W/CREA TININEon 12-12-2021 ALBUMIN, URINE 1.2 mg/dL Normal See Note: [facility] Comment on above: Result Comment: Refe rence Range: Reference Range Not established Performed By: #### 4 96, 23978, 65, 7600 #### [facility] [address], [address] [place] [address] Supervisor Finishing Room: Ck Wallis MD ALBUMIN/CREATININE RATIO, RANDOM URINE 11 mcg/mg creat Normal <30 [facility] Comment on above: Result Comment: The ADA defines abnormalities in albumin excretion as follows: Albuminuria Category Result (mcg/mg creatinine) Normal to Mildly increased <30 Moderately increased 30-299 Severely increased > OR = 300 The ADA recommends that at least two of three specimens collected within a 3-6 month period be abnormal before considering a patient to be within a diagnostic category. Performed By: #### 4 96, 19922, 6517, 7600 #### [facility] [address], [address] [place] [address] Supervisor Finishing Room: Ck Wallis MD Creatinine (U) [Mass/Vol] 112 mg/dL Normal 20-320 [facility] Comment on above: Performed By: #### 4 96, 50162, 6517, 7600 #### [facility] [address], [address] [place] [address] Supervisor Finishing Room: Ck Wallis MD COMPREHENSIVE METABOLIC PANE Néstor 12-12-2021 Albumin [Mass/Vol] 4.6 g/dL Normal 3.6-5.1 [facility] Comment on above: Performed By: #### 4 96, 87624, 6517, 7600 #### [facility] of [address], [address] [place] [address] Supervisor Finishing Room: Ck Wallis MD Albumin/Globulin [Mass ratio] 1.7 {ratio} Normal 1.0-2.5 [facility] Comment on above: Performed By: #### 4 96, 32357, 6517, 7600 #### [facility] of [address], [address] [place] [address] Supervisor Finishing Room: Ck Wallis MD ALP [Catalytic activity/Vol] 43 U/L Normal 35-144 [facility] Comment on above: Performed By: #### 4 96, 73051, 6517, 7600 #### [facility] of [address], [address] [place] [address] Supervisor Finishing Room: Ck Wallis MD ALT [Catalytic activity/Vol] 22 U/L Normal 9-46 [facility] Comment on above: Performed By: #### 4 96, 26982, 6517, 7600 #### [facility] [place] [address] Supervisor Finishing Room: Ck Wallis MD AST [Catalytic activity/Vol] 15 U/L Normal 10-35 [facility] Comment on above: Performed By: #### 4 96, 36085, 6517, 7600 #### [facility] [place] [address] Supervisor Finishing Room: Ck Wallis MD Bilirubin [Mass/Vol] 0.5 mg/dL Normal 0.2-1.2 [facility] Comment on above: Performed By: #### 4 96, 16912, 6517, 7600 #### [facility] [place] [address] Supervisor Finishing Room: Ck Wallis MD BUN/CREATININE RATIO NOT APPLICABLE Normal 6-22 [facility] Comment on above: Performed By: #### 4 96, 09789, 65, 7600 #### [facility] [place] [address] Supervisor Finishing Room: Ck Wallis MD Calcium [Mass/Vol] 9.3 mg/dL Normal 8.6-10.3 [facility] Comment on above: Performed By: #### 4 96, , 65, 7600 #### [facility] [place] [address] Supervisor Finishing Room: Ck Wallis MD Chloride [Moles/Vol] 102 mmol/L Normal 98-110 [facility] Comment on above: Performed By: #### 4 96, 80300, 65, 7600 #### [facility] [place] [address] Supervisor Finishing Room: Ck Wallis MD CO2 [Moles/Vol] 27 mmol/L Normal 20-32 [facility] Comment on above: Performed By: #### 4 96, , 65, 7600 #### [facility] [place] [address] Supervisor Finishing Room: Ck Wallis MD Creatinine [Mass/Vol] 1.05 mg/dL Normal 0.70-1.25 [facility] Comment on above: Result Comment: For patients >49 years of age, the reference limit for Creatinine is approximately 13% higher for people identified as -Surinamese. Performed By: #### 4 , , 65, 7600 #### [facility] [place] [address] Supervisor Finishing Room: Ck Wallis MD eGFR NON-AFR. GIBRALTARIAN 75 mL/min/1.73m2 Normal > OR = 60 [facility] Comment on above: Performed By: #### 4 96, 82305, 6517, 7600 #### [facility] [place] [address] Supervisor Finishing Room: Ck Wallis MD GFR/1.73 sq M.predicted among blacks MDRD (S/P/Bld) [Vol rate/Area] 87 mL/min/{1.73_m2} Normal > OR = 60 [facility] Comment on above: Performed By: #### 4 , , 65, 7600 #### [facility] [place] [address] Supervisor Finishing Room: Ck Wallis MD Globulin (S) [Mass/Vol] 2.7 g/dL Normal 1.9-3.7 [facility] Comment on above: Performed By: #### 4 96, , 6516, 7600 #### [facility] [place] [address] Supervisor Finishing Room: Ck Wallis MD Glucose [Mass/Vol] 144 mg/dL High 65-99 [facility] Comment on above: Result Comment: Fasting reference interval For someone without known diabetes, a glucose value >125 mg/dL indicates that they may have diabetes and this should be confirmed with a follow-up test. Performed By: #### 4 , , 6516, 7600 #### [facility] [place] [address] Supervisor Finishing Room: Ck Wallis MD Potassium [Moles/Vol] 3.9 mmol/L Normal 3.5-5.3 [facility] Comment on above: Performed By: #### 4 , , 65, 7600 #### [facility] [place] [address] Supervisor Finishing Room: Ck Wallis MD Protein [Mass/Vol] 7.3 g/dL Normal 6.1-8.1 [facility] Comment on above: Performed By: #### 4 , , 65, 7600 #### [facility] [place] [address] Supervisor Finishing Room: Ck Wallis MD Sodium [Moles/Vol] 138 mmol/L Normal 135-146 [facility] Comment on above: Performed By: #### 4 , , 65, 7600 #### [facility] [address], [address] [place] [address] Supervisor Finishing Room: Ck Wallis MD Urea nitrogen [Mass/Vol] 19 mg/dL Normal 7-25 [facility] Comment on above: Performed By: #### 4 96, 90394, 6517, 7600 #### [facility] [address], [address] [place] [address] Supervisor Finishing Room: Ck Wallis MD HEMOGLOBIN A1con 12-12-2021 HEMOGLOBIN A1c 7.4 % of total Hgb High <5.7 [facility] Comment on above: Result Comment: For someone without known diabetes, a hemoglobin A1c value of 6.5% or greater indicates that they may have diabetes and this should be confirmed with a follow-up test. For someone with known diabetes, a value <7% indicates that their diabetes is well controlled and a value greater than or equal to 7% indicates suboptimal control. A1c targets should be individualized based on duration of diabetes, age, comorbid conditions, and other considerations. Currently, no consensus exists regarding use of hemoglobin A1c for diagnosis of diabetes for children. Performed By: #### 4 96, 21670, 6517, 7600 #### [facility] [address], [address] [place] [address] Supervisor Finishing Room: Ck Wallis MD LIPID PANEL, STANDARDon 12-02 Cholesterol [Mass/Vol] 263 mg/dL High <200 [facility] Comment on above: Order Comment: FASTI NG:YES FASTING: YES Performed By: #### 4 96, 50220, 6517, 7600 #### [facility] [address], [address] [place] [address] Supervisor Finishing Room: Ck Wallis MD Cholesterol in HDL [Mass/Vol] 46 mg/dL Normal > OR = 40 [facility] Comment on above: Order Comment: FASTI NG:YES FASTING: YES Performed By: #### 4 96, 22355, 6517, 7600 #### [facility] [address], [address] [place] [address] Supervisor Finishing Room: Ck Wallis MD Cholesterol in LDL [Mass/Vol] 185 mg/dL High [facility] Comment on above: Order Comment: FASTI NG:YES FASTING: YES Result Comment: Refe rence range: <100 Desirable range <100 mg/dL for primary prevention; <70 mg/dL for patients with CHD or diabetic patients with > or = 2 CHD risk factors. LDL-C is now calculated using the Kimo calculation, which is a validated novel method providing better accuracy than the Friedewald equation in the estimation of LDL-C. Nathan SS et al. KETTY. 2013;310(31): 8947-7580 (http://education.[employer]/faq/DPK000) Performed By: #### 4 96, 06664, 6517, 7600 #### [facility] [address], [address] [place] [address] Supervisor Finishing Room: Ck Wallis MD Cholesterol.total/ Cholesterol in HDL [Mass ratio] 5.7 {ratio} High <5.0 [facility] Comment on above: Order Comment: FASTI NG:YES FASTING: YES Performed By: #### 4 96, 78315, 6517, 7600 #### [facility] [address], [address] [place] [address] Supervisor Finishing Room: Ck Wallis MD NON HDL CHOLESTEROL 217 mg/dL (calc) High <130 [facility] Comment on above: Order Comment: FASTI NG:YES FASTING: YES Result Comment: For patients with diabetes plus 1 major ASCVD risk factor, treating to a non-HDL-C goal of <100 mg/dL (LDL-C of <70 mg/dL) is considered a therapeutic option. Performed By: #### 4 96, 37425, 6517, 7600 #### [facility] [address], [address] [place] [address] Supervisor Finishing Room: Ck Wallis MD Triglyceride [Mass/Vol] 168 mg/dL High <150 [facility] Comment on above: Order Comment: FASTI NG:YES FASTING: YES Performed By: #### 4 96, 25780, 6517, 7600 #### [facility] [address], [address] [place] [address] Supervisor Finishing Room: Ck Manjarrez 11-23-2021 [facility] [address] [place] [address] Office Visit Report Signed Patient Name: Tom Khan 0 Date of : 1955 Age/Sex: 66 / M Date of Service: Location: [facility] Attending physician: Apolinar LUKE HPI History of Present Illness Date of exam: 11/23/21 Chief Complaint: repeat Current symptoms/precipitating events: Tom Khan is a 66 year old male Psych HPI AMB Note History of Present Illness Therapy modalities: cognitive behavioral therapy (CBT) Participation and compliance: fair Psychotherapy progress notes: Tom is a 66-year-old male who is been in treatment for major depression, OCD, CANDIDA, and social anxiety disorder. Today he again attends with his Jaci. He is embarrassed over an issu e on Sunday where he told one of the jehovah's witness members to pray for him that he wanted to do himself and. The jehovah's witness member was alarmed and went to the warper tender who is meeting with the board and inform them of what was going on. Patient was assessed at ED and [facility]. They also talked with Richie at [facility] at [facility]. He does not feel like he is ready for IOP noted anything that IOP would be the answer this time. Informed them if they did want to continue with [facility] that they could contact Richie since a very ready made contact with him and that he would facilitate that for them. In addition he has another appointment with a neurologist Dr. Sevilla on December [address] Davin urban who is involved in his case and is a neuropsychologist referred him to Dr. Sevilla for further evaluation. We discussed next appointment meeting primarily with Tom at least half the appointment before including Jaci. Tom seems to talk better without her present at times. They do have a possible vacation toward mid December and the [place] friends and discussed what might be some possible enjoyable things they might do at that time. Generally has a hard time focusing on anything but his finances. He is good now about not managing that in session but will report instead on thinking about the F word. Listened and supported rescheduled for just prior to their vacation. Psychiatric visit total time minutes: 50 Violent Behavior No Current/Previous Provider Psychiatrist: Dr. Karlee Farfan MD Therapist: TI Harrington Visit Details Total time (minutes): 50 Dictated By: TI Harrington 11/23/211539 Signed By: 11/23/211548 Cosigned By (if applicable): [id number] cc: TI Harrington Normal [facility] Acetaminophenon 11-20-2021 Acetaminophen [Mass/Vol] ug/mL Normal 0.0-30.0 [facility] Acute Comment on above: Performed By: #### C BC, ALCBLD, CMP, TSHRFLX, UDS, ALYSSA, ACET #### [facility] [address] [place], [place] [address] Acetaminophen level (mass/vo lume)on 11-20-2021 Acetaminophen (Unsp spec) [Mass/Vol] < 10.0 mcg/mL 0.0-30.0 [facility] Work Phone: Albumin measurement (mass/vo lume)on 11-20-2021 Albumin (Unsp spec) [Mass/Vol] 4.8 g/dL 3.5-5.0 [facility] Work Phone: Alcohol Bloodon 11-20-2021 Alcohol Blood < 10.00 Normal 0.0-10.00 [facility] Acute Comment on above: Performed By: #### C BC, ALCBLD, CMP, TSHRFLX, UDS, ALYSSA, ACET #### [facility] [address] [place], [place] [address] Amphetamine Screen Ql (U)on 11-20-2021 Amphetamines Ql (U) Negative Negative [facility] Work Phone: Bacteria detection in urine sediment by light microscopyon 11-20-2021 Bacteria LM Ql (Urine sed) Trace [facility] Work Phone: Basophil percentageon 2021 Hemoglobin (Bld) [Mass/Vol] 14.5 g/dL 13.8-17.8 [facility] Work Phone: Basophils Auto (Bld) [#/Vol] on 11-20-2021 Basophils (Bld) [#/Vol] 0.0859 10*3/uL 0.0-0.3 [facility] Work Phone: Basophils/100 WBC Auto (Bld) on 11-20-2021 Basophils/100 WBC (Bld) 1.039 % 0.0-3.0 [facility] Work Phone: Benzodiazepines Screen Ql (U )on 11-20-2021 Benzodiazepines Ql (U) Negative Negative [facility] Work Phone: Blood anion gapon 11-20-2021 Anion gap (Bld) [Moles/Vol] 14.5 mmol/L [facility] Work Phone: Blood erythrocytes count (nu mber/volume)on 11-20-2021 RBC (Bld) [#/Vol] 4.81 10*6/uL 4.70-6.10 [facility] Work Phone: Blood leukocytes count (numb er/volume)on 11-20-2021 WBC (Bld) [#/Vol] 8.3 Thou/mL3 4.8-10.8 [facility] Work Phone: Blood platelet counton 11-20 Platelets (Bld) [#/Vol] 301.2 Thou/mm3 130-400 [facility] Work Phone: Blood total protein measurem enton 11-20-2021 Protein [Mass/Vol] 8.0 g/dL 6.3-8.2 [facility] Work Phone: Calcium measurement (mass/vo lume)on 11-20-2021 Calcium (Unsp spec) [Mass/Vol] 9.4 mg/dL 8.4-10.2 [facility] Work Phone: Chloride measurement (mass/v olume)on 11-20-2021 Chloride (Unsp spec) [Mass/Vol] 103 mmol/L 98-120 [facility] Work Phone: Cocaine Screen Ql (U)on 11-02 Cocaine Ql (U) Negative Negative [facility] Work Phone: Complete Blood Count Auto Di ffon 11-20-2021 Basophils Absolute Auto 0.0859 Normal 0.0-0.3 [facility] Acute Comment on above: Performed By: #### C BC, ALCBLD, CMP, TSHRFLX, UDS, ALYSSA, ACET #### [address] [address] Basophils Percent Auto 1.039 Normal 0.0-3.0 [facility] Comment on above: Performed By: #### C BC, ALCBLD, CMP, TSHRFLX, UDS, ALYSSA, ACET #### [address] [address] Eosinophils Absolute Auto 0.0993 Normal 0.0-1.1 [facility] Acute Comment on above: Performed By: #### C BC, ALCBLD, CMP, TSHRFLX, UDS, ALYSSA, ACET #### [address] [address] Eosinophils Percent Auto 1.201 Normal 0.0-10.0 [facility] Acute Comment on above: Performed By: #### C BC, ALCBLD, CMP, TSHRFLX, UDS, ALYSSA, ACET #### [address] [address] Erythrocyte distribution width (RBC) [Ratio] 13.5 % Normal 10.0-15.5 [facility] Acute Comment on above: Performed By: #### C BC, ALCBLD, CMP, TSHRFLX, UDS, ALYSSA, ACET #### [address] [address] Hematocrit (Bld) [Volume fraction] 44.0 % Normal 42.0-52.0 [facility] Comment on above: Performed By: #### C BC, ALCBLD, CMP, TSHRFLX, UDS, ALYSSA, ACET #### [address] [address] Hemoglobin (Bld) [Mass/Vol] 14.5 g/dL Normal 13.8-17.8 [facility] Comment on above: Performed By: #### C BC, ALCBLD, CMP, TSHRFLX, UDS, ALYSSA, ACET #### [address] [address] Lymphocytes Absolute Auto 1.802 Normal 1.0-5.5 [facility] Comment on above: Performed By: #### C BC, ALCBLD, CMP, TSHRFLX, UDS, ALYSSA, ACET #### [address] [address] Lymphocytes Percent Auto 21.80 Normal 20-51.1 [facility] Comment on above: Performed By: #### C BC, ALCBLD, CMP, TSHRFLX, UDS, ALYSSA, ACET #### [address] [address] MCH (RBC) [Entitic mass] 30.1 pg Normal 28.5-32.5 [facility] Comment on above: Performed By: #### C BC, ALCBLD, CMP, TSHRFLX, UDS, ALYSSA, ACET #### [address] [address] MCV (RBC) [Entitic vol] 91.3 fL Normal 80.0-94.0 [facility] Comment on above: Performed By: #### C BC, ALCBLD, CMP, TSHRFLX, UDS, ALYSSA, ACET #### [address] [address] Mean Corpuscular HGB Conc 33.0 g/dL Normal 32.0-37.0 [facility] Comment on above: Performed By: #### C BC, ALCBLD, CMP, TSHRFLX, UDS, ALYSSA, ACET #### [address] [address] Monocytes Absolute Auto 0.6828 Normal 0.1-1.0 [facility] Comment on above: Performed By: #### C BC, ALCBLD, CMP, TSHRFLX, UDS, ALYSSA, ACET #### [address] [address] Monocytes Percent Auto 8.261 Normal 1.7-9.3 [facility] Comment on above: Performed By: #### C BC, ALCBLD, CMP, TSHRFLX, UDS, ALYSSA, ACET #### [address] [address] Neutrophils Absolute Auto 5.595 Normal 2.0-8.1 [facility] Comment on above: Performed By: #### C BC, ALCBLD, CMP, TSHRFLX, UDS, ALYSSA, ACET #### [address] [address] Neutrophils Percent Auto 67.70 Normal 42.2-75.2 [facility] Comment on above: Performed By: #### C BC, ALCBLD, CMP, TSHRFLX, UDS, ALYSSA, ACET #### [address] [address] Platelet Count 301.2 Thou/mm3 Normal 130-400 [facility] Comment on above: Performed By: #### C BC, ALCBLD, CMP, TSHRFLX, UDS, ALYSSA, ACET #### [place] [address] RBC (Bld) [#/Vol] 4.81 10*6/uL Normal 4.70-6.10 [facility] Comment on above: Performed By: #### C BC, ALCBLD, CMP, TSHRFLX, UDS, ALYSSA, ACET #### [address] [address] White Blood Count 8.3 Thou/mL3 Normal 4.8-10.8 [facility] Comment on above: Performed By: #### C BC, ALCBLD, CMP, TSHRFLX, UDS, ALYSSA, ACET #### [address] [address] Comprehensive Metabolic Pane néstor 11-20-2021 Anion gap [Moles/Vol] 14.5 mmol/L Normal [facility] Acute Comment on above: Performed By: #### C BC, ALCBLD, CMP, TSHRFLX, UDS, ALYSSA, ACET #### [address] [address] Alanine Aminotransferase V 33 units/L Normal 4-50 [facility] Acute Comment on above: Performed By: #### C BC, ALCBLD, CMP, TSHRFLX, UDS, ALYSSA, ACET #### [address] [address] Albumin [Mass/Vol] 4.8 g/dL Normal 3.5-5.0 [facility] Comment on above: Performed By: #### C BC, ALCBLD, CMP, TSHRFLX, UDS, ALYSSA, ACET #### [address] [address] Albumin Globulin Ratio 1.5 g/dL Normal [facility] Comment on above: Performed By: #### C BC, ALCBLD, CMP, TSHRFLX, UDS, ALYSSA, ACET #### [address] [address] Alkaline Phosphatase 53 units/L Normal 38-126 [facility] Comment on above: Performed By: #### C BC, ALCBLD, CMP, TSHRFLX, UDS, ALYSSA, ACET #### [address] [address] Aspartate Amino Transferase 25 units/L Normal 17-59 [facility] Comment on above: Performed By: #### C BC, ALCBLD, CMP, TSHRFLX, UDS, ALYSSA, ACET #### [address] [address] Bilirubin [Mass/Vol] 0.5 mg/dL Normal 0.2-1.3 [facility] Comment on above: Performed By: #### C BC, ALCBLD, CMP, TSHRFLX, UDS, ALYSSA, ACET #### [address] [address] Calcium [Mass/Vol] 9.4 mg/dL Normal 8.4-10.2 [facility] Comment on above: Performed By: #### C BC, ALCBLD, CMP, TSHRFLX, UDS, ALYSSA, ACET #### [address] [address] Chloride [Moles/Vol] 103 mmol/L Normal 98-120 [facility] Acute Comment on above: Performed By: #### C BC, ALCBLD, CMP, TSHRFLX, UDS, ALYSSA, ACET #### [address] [address] CO2 [Moles/Vol] 22 mmol/L Normal 22-31 [facility] Acute Comment on above: Performed By: #### C BC, ALCBLD, CMP, TSHRFLX, UDS, ALYSSA, ACET #### [facility] [address] [place], [place] [address] Creatinine [Mass/Vol] 1.0 mg/dL Normal 0.7-1.3 [facility] Acute Comment on above: Performed By: #### C BC, ALCBLD, CMP, TSHRFLX, UDS, ALYSSA, ACET #### [facility] [address] [place], [place] [address] Creatinine Clr Calc Pharmacy 79.0798 Normal [facility] Acute Comment on above: Performed By: #### C BC, ALCBLD, CMP, TSHRFLX, UDS, ALYSSA, ACET #### [address] [address] Globulin (S) [Mass/Vol] 3.3 g/dL Normal [facility] Acute Comment on above: Performed By: #### C BC, ALCBLD, CMP, TSHRFLX, UDS, ALYSSA, ACET #### [address] [address] Glomerular Filtration Rate > 60.0 Normal [facility] Acute Comment on above: Performed By: #### C BC, ALCBLD, CMP, TSHRFLX, UDS, ALYSSA, ACET #### [address] [address] Glucose [Mass/Vol] 138 mg/dL High 75-110 [facility] Acute Comment on above: Performed By: #### C BC, ALCBLD, CMP, TSHRFLX, UDS, ALYSSA, ACET #### [address] [address] Potassium [Moles/Vol] 3.5 mmol/L Low 3.6-5.0 [facility] Acute Comment on above: Performed By: #### C BC, ALCBLD, CMP, TSHRFLX, UDS, ALYSSA, ACET #### [address] [address] Protein [Mass/Vol] 8.0 g/dL Normal 6.3-8.2 [facility] Comment on above: Performed By: #### C BC, ALCBLD, CMP, TSHRFLX, UDS, ALYSSA, ACET #### [address] [address] Sodium [Moles/Vol] 136 mmol/L Normal 135-145 [facility] Acute Comment on above: Performed By: #### C BC, ALCBLD, CMP, TSHRFLX, UDS, ALYSSA, ACET #### [address] [address] Urea nitrogen [Mass/Vol] 21 mg/dL High 05-23 [facility] Comment on above: Performed By: #### C BC, ALCBLD, CMP, TSHRFLX, UDS, ALYSSA, ACET #### [address] [address] Drug Screen Urineon 11-21-19 22 Amphetamine Screen Urine Negative Normal Negative [facility] Acute Comment on above: Performed By: #### C BC, ALCBLD, CMP, TSHRFLX, UDS, ALYSSA, ACET #### [address] [address] Benzodiazepines Screen Urine Negative Normal Negative [facility] Acute Comment on above: Performed By: #### C BC, ALCBLD, CMP, TSHRFLX, UDS, ALYSSA, ACET #### [address] [address] Cannabinoid Screen Urine Negative Normal Negative [facility] Acute Comment on above: Performed By: #### C BC, ALCBLD, CMP, TSHRFLX, UDS, ALYSSA, ACET #### [address] [address] Cocaine Screen Urine Negative Normal Negative [facility] Acute Comment on above: Performed By: #### C BC, ALCBLD, CMP, TSHRFLX, UDS, ALYSSA, ACET #### [address] [address] Opiate Screen Urine Negative Normal Negative [facility] Acute Comment on above: Performed By: #### C BC, ALCBLD, CMP, TSHRFLX, UDS, ALYSSA, ACET #### [address] [address] Oxycodone Urine Negative Normal Negative [facility] Acute Comment on above: Result Comment: Scre ening Technology (On-Site Device) Testing Cut-Offs for the device are as follows: Drug Screening Threshold Amphetamine 1000 ng/mL Methamphetamine 1000 ng/mL MDMA 1500 ng/mL Cocaine Metabolite 300 ng/mL Opiates 2000 ng/mL Oxycodone 100 ng/mL Phenycyclidine 25 ng/mL Marijuana Metabolite 50 ng/mL All positives will be sent out for confirmation. This panel includes tests for specimen validity. Performed By: #### C BC, ALCBLD, CMP, TSHRFLX, UDS, ALYSSA, ACET #### [address] [address] Phencyclidine Screen Urine Negative Normal Negative [facility] Acute Comment on above: Performed By: #### C BC, ALCBLD, CMP, TSHRFLX, UDS, ALYSSA, ACET #### [address] [address] Tricyclic Antidepressant Urine Negative Normal Negative [facility] Acute Comment on above: Performed By: #### C BC, ALCBLD, CMP, TSHRFLX, UDS, ALYSSA, ACET #### [address] [address] Urine Barbiturate Screen Negative Normal Negative [facility] Acute Comment on above: Performed By: #### C BC, ALCBLD, CMP, TSHRFLX, UDS, ALYSSA, ACET #### [address] [address] Eosinophils Auto (Bld) [#/Vo l]on 11-20-2021 Eosinophils (Bld) [#/Vol] 0.0993 10*3/uL 0.0-1.1 [facility] Work Phone: Eosinophils/100 WBC Auto (Bl d)on 11-20-2021 Eosinophils/100 WBC (Bld) 1.201 % 0.0-10.0 [facility] Work Phone: Erythrocyte distribution wid th Auto (RBC) [Ratio]on 11-20-2021 Erythrocyte distribution width (RBC) [Ratio] 13.5 % 10.0-15.5 [facility] Work Phone: Glomerular filtration rate ( GFR) estimation/1.73 sq m using serum, plasma, or whole bon 11-20-2021 GFR/1.73 sq M.predicted CKD-EPI (S/P/Bld) [Vol rate/Area] > 60.0 [facility] Work Phone: Laboratory - Chemistry and C hemistry - challengeon 11-20-2021 pH (U) 6.0 [pH] 5.0-8.5 [facility] Work Phone: Laboratory - Hematology and Cell countson 11-20-2021 Hemoglobin Ql (U) Negative Negative [facility] Work Phone: Lymphocytes (Bld) [#/Vol] 1.802 10*3/uL 1.0-5.5 [facility] Work Phone: Neutrophils (Bld) [#/Vol] 5.595 10*3/uL 2.0-8.1 [facility] Work Phone: Laboratory - Urinalysison Crystals LM Nom (Urine sed) Absent [facility] Work Phone: MCH Auto (RBC) [Entitic mass ]on 11-20-2021 MCH (RBC) [Entitic mass] 30.1 pg 28.5-32.5 [facility] Work Phone: MCHC Auto (RBC) [Mass/Vol]on 11-20-2021 MCHC (RBC) [Mass/Vol] 33.0 g/dL 32.0-37.0 [facility] Work Phone: MCV (mean corpuscular volume ) determinationon 11-20-2021 MCV (RBC) [Entitic vol] 91.3 fL 80.0-94.0 [facility] Work Phone: Monocytes Auto (Bld) [#/Vol] on 11-20-2021 Monocytes (Bld) [#/Vol] 0.6828 10*3/uL 0.1-1.0 [facility] Work Phone: Monocytes/100 WBC Auto (Bld) on 11-20-2021 Monocytes/100 WBC (Bld) 8.261 % 1.7-9.3 [facility] Work Phone: Mucus LM Ql (Urine sed)on Mucus Ql (Urine sed) Absent [facility] Work Phone: Neutrophils/100 WBC Auto (Bl d)on 11-20-2021 Neutrophils/100 WBC (Bld) 67.70 % 42.2-75.2 [facility] Work Phone: Nitrite Test strip Ql (U)on 11-20-2021 Nitrite Ql (U) Negative Negative [facility] Work Phone: No Panel Informationon 11-20 Urine Casts Absent [facility] Work Phone: Urine RBC Absent 0-2 [facility] Work Phone: Lymphocytes (%) (Auto) 21.80 20-51.1 [facility] Work Phone: Pharmacy Creatinine Clearance (Chem 79.4833 [facility] Work Phone: Plasma/Serum Blood Alcohol < 10.00 mg/dL 0.0-10.00 [facility] Work Phone: Phencyclidine Screen Ql (U)o n 11-20-2021 Phencyclidine Ql (U) Negative Negative [facility] Work Phone: Salicylateon 11-20-2021 Salicylate < 1.0 Normal 0-20 [facility] Acute Comment on above: Performed By: #### C BC, ALCBLD, CMP, TSHRFLX, UDS, ALYSSA, ACET #### [facility] [address] [place] [address] Screening urine barbiturate detectionon 11-20-2021 Barbiturates Screen Ql (U) Negative Negative [facility] Work Phone: Screening urine opiates dete ctionon 11-20-2021 Opiates Screen Ql (U) Negative Negative [facility] Work Phone: Serum creatinine measurement (mass/volume)on 11-20-2021 Creatinine [Mass/Vol] 1.0 mg/dL 0.7-1.3 [facility] Work Phone: Serum globulin measurement ( mass/volume)on 11-20-2021 Globulin (S) [Mass/Vol] 3.3 g/dL [facility] Work Phone: Serum or plasma alanine riley otransferase measurement (enzymatic activity/volume)on 11-20-2021 ALT [Catalytic activity/Vol] 25 units/L 17-59 [facility] Work Phone: ALT [Catalytic activity/Vol] 33 units/L 4-50 [facility] Work Phone: Serum or plasma albumin/glob ulin mass ratioon 11-20-2021 Albumin/Globulin [Mass ratio] 1.5 g/dL [facility] Work Phone: Serum or plasma alkaline dom sphatase measurementon 11-20-2021 ALP [Catalytic activity/Vol] 53 units/L 38-126 [facility] Work Phone: Serum or plasma bilirubin me asurement (mass/volume)on 11-20-2021 Bilirubin [Mass/Vol] 0.5 mg/dL 0.2-1.3 [facility] Work Phone: Serum or plasma carbon dioxi de measurement (moles/volume)on 11-20-2021 CO2 [Moles/Vol] 22 mmol/L 22-31 [facility] Work Phone: Serum or plasma glucose craol urement (mass/volume)on 11-20-2021 Glucose [Mass/Vol] 138 mg/dL High 75-110 [facility] Work Phone: Serum or plasma salicylates detectionon 11-20-2021 Salicylates Ql < 1.0 mg/dL 0-20 [facility] Work Phone: Serum or plasma thyroid stim ulating hormone (TSH) measurementon 11-20-2021 TSH Qn 0.65 mIU/mL 0.49-4.67 [facility] Work Phone: Serum or plasma urea nitroge n measurement (mass/volume)on 11-20-2021 Urea nitrogen [Mass/Vol] 21 mg/dL High - [facility] Work Phone: Serum, plasma, or blood pota ssium measurement (moles/volume)on 11-20-2021 Potassium (S/P/Bld) [Moles/Vol] 3.5 mmol/L Low 3.6-5.0 [facility] Work Phone: Serum, plasma, or whole bloo d sodium measurement (moles/volume)on 11-20-2021 Sodium (S/P/Bld) [Moles/Vol] 136 mmol/L 135-145 [facility] Work Phone: Squamous epithelial cells de tection in urine sediment by light microscopyon 11-20-2021 Epithelial cells.squamous LM Ql (Urine sed) 0-2 [facility] Work Phone: TSH with FT4 reflexon 2021 TSH with FT4 reflex 0.65 mIU/mL Normal 0.49-4.67 [facility] Acute Comment on above: Performed By: #### C BC, ALCBLD, CMP, TSHRFLX, UDS, ALYSSA, ACET #### [facility] [address] [place], [place] [address] Urinalysis and Microscopicon 11-20-2021 Bacteria Urine Trace Normal [facility] Acute Comment on above: Performed By: #### U AMIC #### [address] [address] Casts Urine Absent Normal [facility] Acute Comment on above: Performed By: #### U AMIC #### [facility] [address] [place], [place] [address] Mucus Urine Absent Normal [facility] Acute Comment on above: Performed By: #### U AMIC #### [address] [address] Trichomonas Urine Absent Normal [facility] Acute Comment on above: Performed By: #### U AMIC #### [facility] [address] [place], [place] [address] Urine Red Blood Cells Absent Normal 0-2 [facility] Acute Comment on above: Performed By: #### U AMIC #### [facility] [address] [place], [place] [address] Urine White Blood Cells Absent Normal 0-4 [facility] Acute Comment on above: Performed By: #### U AMIC #### [facility] [address] [place], [place] [address] Yeast Urine Absent Normal [facility] Acute Comment on above: Performed By: #### U AMIC #### [facility] [address] [place], [place] [address] Crystals Urine Absent Normal [facility] Acute Comment on above: Performed By: #### U AMIC #### [facility] [address] [place], [place] [address] Squamous Epithelial Cell Urine 0-2 Normal [facility] Comment on above: Performed By: #### U AMIC #### [facility] [address] [place], [place] [address] Clarity (U) Clear Normal Clear [facility] Comment on above: Performed By: #### U AMIC #### [facility] [address] [place], [place] [address] Color (U) Yellow Normal Yellow [facility] Comment on above: Performed By: #### U AMIC #### [facility] [address] [place], [place] [address] Bilirubin Urine Negative Normal Negative [facility] Acute Comment on above: Performed By: #### U AMIC #### [facility] [address] [place], [place] [address] Blood Urine Negative Normal Negative [facility] Comment on above: Performed By: #### U AMIC #### [facility] [address] [place], [place] [address] Glucose Urine UA Negative Normal Negative [facility] Acute Comment on above: Performed By: #### U AMIC #### [facility] [address] [place], [place] [address] Ketones Ql (U) Negative Normal Negative [facility] Comment on above: Performed By: #### U AMIC #### [facility] [address] [place], [place] [address] Leukocyte esterase Test strip Ql (U) Negative Normal Negative [facility] Comment on above: Performed By: #### U AMIC #### [facility] [address] [place], [place] [address] Nitrite Urine Negative Normal Negative [facility] Acute Comment on above: Performed By: #### U AMIC #### [facility] [address] [place], [place] [address] pH (U) 6.0 [pH] Normal 5.0-8.5 [facility] Comment on above: Performed By: #### U AMIC #### [facility] [address] [place], [place] [address] Specific [place] Urine 1.025 mg/dL Normal 1.005-1.030 [facility] Acute Comment on above: Performed By: #### U AMIC #### [facility] [address] [place], [place] [address] Urine Protein Dip Trace Normal Negative [facility] Acute Comment on above: Performed By: #### U AMIC #### [facility] [address] [place], [place] [address] Urobilinogen Urine 0.2 mg/dL Normal 0.2-1.0 [facility] Comment on above: Performed By: #### U AMIC #### [facility] [address] [place], [place] [address] Urine Trichomonas species de tection by light microscopyon 11-20-2021 Trichomonas sp LM Ql (U) Absent [facility] Work Phone: Urine cannabinoids detection by screening methodon 11-20-2021 Cannabinoids Screen Ql (U) Negative Negative [facility] Work Phone: Urine clarityon 11-20-2021 Clarity (U) Clear Clear [facility] Work Phone: Urine coloron 11-20-2021 Color (U) Yellow Yellow [facility] Work Phone: Urine glucose detectionon Glucose Ql (U) Negative Negative [facility] Work Phone: Urine ketones detectionon Ketones Ql (U) Negative Negative [facility] Work Phone: Urine leukocyte esterase det ection by automated test stripon 11-20-2021 Leukocyte esterase Auto test strip Ql (U) Negative Negative [facility] Work Phone: Urine leukocytes detection b y microscopyon 11-20-2021 WBC Visual Ql (U) Absent 0-4 [facility] Work Phone: Urine oxycodone measurement by confirmatory method (mass/volume)on 11-20-2021 oxyCODONE Confirm (U) [Mass/Vol] Negative Negative [facility] Work Phone: Comment on above: Screening Technology (On-Site Device)Testing Cut-Offs for the device are as follows:Drug Screening ThresholdAmphetamine 1000 ng/mLMethamphetamine 1000 ng/mLMDMA 1500 ng/mLCocaine Metabolite 300 ng/mLOpiates 2000 ng/mLOxycodone 100 ng/mLPhenycyclidine 25 ng/mLMarijuana Metabolite 50 ng/mLAll positives will be sent out for confirmation. This panel includes tests for specimen validity. Urine protein detection by a utomated test stripon 11-20-2021 Protein Auto test strip Ql (U) Trace mg/dL Negative [facility] Work Phone: Urine specific gravity measu rementon 11-20-2021 Specific gravity (U) [Rel density] 1.025 mg/dL 1.005-1.030 [facility] Work Phone: Urine total bilirubin detect ionon 11-20-2021 Bilirubin Ql (U) Negative Negative [facility] Work Phone: Urine tricyclic antidepressa nt measurementon 11-20-2021 Tricyclic antidepressants (U) [Mass/Vol] Negative Negative [facility] Work Phone: Urine urobilinogen measureme nton 11-20-2021 Urobilinogen Ql (U) 0.2 mg/dL 0.2-1.0 [facility] Work Phone: Urine yeast-like organism de tectionon 11-20-2021 Fungi.yeastlike LM Ql (Urine sed) Absent [facility] Work Phone: Whole blood hematocriton Hematocrit (Bld) [Volume fraction] 44.0 % 42.0-52.0 [facility] Work Phone: AMeenuJENNIFERTALISHAon 11-10-2021 K[facility] [address] [place] [address] Office Visit Report Signed Patient Name: Tom Khan 0 Date of : 1955 Age/Sex: 66 / M Date of Service: Location: [facility] Behavioral Health Outpt Attending physician: Karen Sotelo CNP Intake Vital Signs 11/10/21 14:42 Height 5 ft 11 in Weight 255 lb 6 oz BMI 35.6 BP 150/82 H BP Location Right Brachial BP Position Sitting BP Cuff Size Adult BP Source Automatic Cuff Respiration 18 Pulse 75 Pulse Source Monitor Intake Visit Reasons: repeat Allergies Allergy/AdvReac Type Severity Reaction Status Date / Time No Known Drug Allergies Allergy Verified 10/19/21 10:46 Current Medication List - Last Reconciled 11/10/21 by Lucía Napier amlodipine 5 mg tablet 5 mg PO DAILY ascorbic acid (vitamin C) 500 mg tablet (Vitamin C) 1,000 mg (2 x 500 mg) PO DAILY 30 days benztropine 0.5 mg tablet 0.5 mg PO BID 90 days buspirone 30 mg tablet 30 mg PO BID 90 days chlorthalidone 25 mg tablet 25 mg PO DAILY cholecalciferol (vitamin D3) 25 mcg (1,000 unit) tablet 125 mcg (5 x 25 mcg (1,000 unit)) PO DAILY 30 days clonidine HCl 0.1 mg tablet 0.1 mg PO BID desvenlafaxine succinate 50 mg tablet,extended release 24 hr 50 mg PO DAILY 90 days exenatide microspheres 2 mg/0.85 mL subcutaneous auto-injector (Bydureon BCise) 2 mg subcut Q7D exenatide microspheres 2 mg/0.85 mL subcutaneous auto-injector (Bydureon BCise) 2 mg subcut QWEEK haloperidol 5 mg tablet 1/2 tab PO; 30 days insulin glargine 100 unit/mL (3 mL) subcutaneous pen (Basaglar KwikPen U-100 Insulin) 54 units subcut DAILY labetalol 200 mg tablet 200 mg PO BID lorazepam 1 mg tablet 1 mg PO BID PRN metformin 500 mg tablet 500 mg PO DAILY trazodone 100 mg tablet 100 mg PO BEDTIME 30 days PRN zinc sulfate 50 mg zinc (220 mg) capsule 50 mg PO DAILY 30 days Is patient having pain: No History PFSH Medical History Diabetes Generalized anxiety disorder HTN (hypertension) with goal to be determined Hyponatremia Major depressive disorder NIDIA (obstructive sleep apnea) Retinal detachment Social anxiety disorder Surgical History Hx of CABG Hx of total knee arthroplasty Family History Father Heart disease Mother Stroke Social History History Provided by: Patient Usual Living Arrangement: With Spouse/Significant Other Anyone at Home Need Help While Hospitalized: No Smoking Status: Never Smoker Other Form of Tobacco Used: Never Used Second Hand Tobacco Smoke Exposure: No How Often do you Have a Drink Containing Alcohol: Never How Many Standard Drinks Containing Alcohol do you Have on a Typical Day: None How Often do you Have Six or More Drinks on One Occasion: Never AUDIT-C Alcohol Total Score: 0 Caffeine Use: Yes Non-Prescribed Substance Use: Denies Use Suicidal Thoughts/Plans: No History of Physical Abuse: No History of Emotional Abuse: Yes (Father could be distant) History of Sexual Abuse: No 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 [place]: No Highest Level of School Completed/Degree Received: Bachelor's Degree Cultural/Personal/Religi ous Beliefs that Affect Patient Care: No Cultural or Jainism Modesty Issues Regarding Care by Staff of the Opposite Sex: No Jainism Items Worn: No Other Factors Affecting Patient Care Experience: No Patient Discharge Plan Description: Return Home Services Needed at Discharge: No Services Needed Discharge Planning/Case Management Referral Needed: No Concerns Regarding Hospital Charges: Yes (Worried about paying for his stay) HPI History of Present Illness Date of exam: 11/10/21 Chief Complaint: repeat Current symptoms/precipitating events: Please note that this dictation was created using voice recognition software. While attempts have been made to review the dictation as it is transcribed, on occasion the spoken word may be misinterpreted by technology leading to omissions or inappropriate words or phrases. Tom Khan is a 66 year old male presenting today for medication management appointment. Notes from his last visit with Dr. Farfan were reviewed prior to seeing this patient. Mrs. Khan is present today, and did sit in on the entire appointment today. Both Tom and his feel that the increase in Haldol at the last visit has not provided any benefit for the patient. Mrs. Khan has noticed that Tom has had more lip tremors since the increase in Haldol and also describes him as being more zombified. Tom continues to be very fixated on his finances and w (more content not included)... Normal [facility] AMeenuJENNIFERVISon 10-31-2021 A.OFFTALISHA [facility] [address] [place] [id number] Office Visit Report Signed Patient Name: Tom Khan 0 Date of : 1955 Age/Sex: 66 / M Date of Service: Location: [facility] Health Outpt Attending physician: Apolinar CHEN History of Present Illness Date of exam: 10/31/21 Chief Complaint: repeat Current symptoms/precipitating events: Tom Khan is a 66 year old male Psych HPI AMB Note History of Present Illness Presenting problem: Follow-up Suicidal thoughts: No Homicidal thoughts: No Present for session: patient and spouse Participation and compliance: fair Psychotherapy progress notes: Tom is a 66-year-old man who attends with his today and is in treatment for major depressive disorder recurrent, OCD, CANDIDA, and social anxiety disorder. Agreement had been at the session that there would be no mention of his financial concerns as it has been well established that there is no reason to be concerned as he has more than enough financial reserves. He even saw our financial counselor and had a confirmed with them since her last appointment. Jaci attends today and is quite frustrated and reports that her goal is to have him off the medication I reminded her that that is between them and Dr. Farfan who has addressed this with him on at least another occasion. 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 He has a couple of things he is looking forward to and that is the establishment of meant of a men's group at [employer] and that seems positive for him. A couple of times during session he would report I'm still thinking about the 'F 'word and therapist reminded him that we were not going to discuss that and patient was able to move on. While it was still obviously in his thoughts he was able to refrain from that discussion. So encouraging him to explore some detention options for productivity and activity. Listened and supported. Psychiatric visit total time minutes: 50 Psychiatric History Previous inpatient psychiatric hospitalization: Yes Previous Psychiatric Treatment Programs: Partial Hospital Program, Inpatient Program, Intensive Outpatient Prog and Outpatient Violent Behavior No Current/Previous Provider Psychiatrist: Karlee Farfan MD Therapist: TI Harrington Visit Details Total time (minutes): 50 Assessment and Plan with Goals Assessment Plan (1) Major depressive disorder, recurrent severe without psychotic features: Code(s): F33.2 - Major depressive disorder, recurrent severe without psychotic features Category: Medical (2) OCD (obsessive compulsive disorder): Code(s): F42.9 - Obsessive-compulsive disorder, unspecified Category: Medical (3) Generalized anxiety disorder: Code(s): F41.1 - Generalized anxiety disorder Category: Medical (4) Social anxiety disorder: Code(s): F40.10 - Social phobia, unspecified Category: Medical Dictated By: TI Harrington 10/31/211641 Signed By: 10/31/211655 Cosigned By (if applicable): [id number] cc: TI Harrington [facility] KASEY 10-19-2021 K[facility] [address] [place], [place] [id number] Office Visit Report Signed Patient Name: Tom Khan 0 Date of : 1955 Age/Sex: 66 / M Date of Service: Location: [facility] Out[facility] Attending physician: Karlee Farfan MD Intake Vital Signs 10/19/21 10:45 Height 5 ft 11 in Weight 114.759 kg BMI 35.2 BP 151/79 H BP Location Right Brachial BP Position Sitting BP Cuff Size Adult BP Source Automatic Cuff Respiration 18 Pulse 67 Pulse Source Monitor Intake Visit Reasons: repeat Allergies Allergy/AdvReac Type Severity Reaction Status Date / Time No Known Drug Allergies Allergy Verified 10/19/21 10:46 Current Medication List - Last Reconciled 10/19/21 by Karlee Farfan MD amlodipine 5 mg tablet 5 mg PO DAILY ascorbic acid (vitamin C) 500 mg tablet (Vitamin C) 1,000 mg (2 x 500 mg) PO DAILY 30 days benztropine 0.5 mg tablet 0.5 mg PO BID 90 days buspirone 30 mg tablet 30 mg PO BID 90 days chlorthalidone 25 mg tablet 25 mg PO DAILY cholecalciferol (vitamin D3) 25 mcg (1,000 unit) tablet 125 mcg (5 x 25 mcg (1,000 unit)) PO DAILY 30 days clonidine HCl 0.1 mg tablet 0.1 mg PO BID desvenlafaxine succinate 50 mg tablet,extended release 24 hr 50 mg PO DAILY 90 days exenatide microspheres 2 mg/0.85 mL subcutaneous auto-injector (Bydureon BCise) 2 mg subcut Q7D exenatide microspheres 2 mg/0.85 mL subcutaneous auto-injector (Bydureon BCise) 2 mg subcut QWEEK haloperidol 5 mg tablet 2.5 mg (1/2 x 5 mg) PO ,18 30 days insulin glargine 100 unit/mL (3 mL) subcutaneous pen (Basaglar KwikPen U-100 Insulin) 54 units subcut DAILY labetalol 200 mg tablet 200 mg PO BID lorazepam 1 mg tablet 1 mg PO BID PRN metformin 500 mg tablet 500 mg PO DAILY trazodone 100 mg tablet 100 mg PO BEDTIME 30 days PRN zinc sulfate 50 mg zinc (220 mg) capsule 50 mg PO DAILY 30 days Is patient having pain: No History PFSH Medical History (Updated 08/22/21 @ 00:00 by Tyrone Howe) Diabetes Generalized anxiety disorder HTN (hypertension) with goal to be determined Hyponatremia Major depressive disorder NIDIA (obstructive sleep apnea) Retinal detachment Social anxiety disorder Surgical History Hx of CABG Hx of total knee arthroplasty Family History Father Heart disease Mother Stroke Social History History Provided by: Patient Usual Living Arrangement: With Spouse/Significant Other Anyone at Home Need Help While Hospitalized: No Smoking Status: Never Smoker Other Form of Tobacco Used: Never Used Second Hand Tobacco Smoke Exposure: No How Often do you Have a Drink Containing Alcohol: Never How Many Standard Drinks Containing Alcohol do you Have on a Typical Day: None How Often do you Have Six or More Drinks on One Occasion: Never AUDIT-C Alcohol Total Score: 0 Caffeine Use: Yes Non-Prescribed Substance Use: Denies Use History of Physical Abuse: No History of Emotional Abuse: Yes (Father could be distant) History of Sexual Abuse: No 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 : No Highest Level of School Completed/Degree Received: Bachelor's Degree Cultural/Personal/Religi ous Beliefs that Affect Patient Care: No Cultural or Jainism Modesty Issues Regarding Care by Staff of the Opposite Sex: No Jainism Items Worn: No Other Factors Affecting Patient Care Experience: No Patient Discharge Plan Description: Return Home Services Needed at Discharge: No Services Needed Discharge Planning/Case Management Referral Needed: No Concerns Regarding Hospital Charges: Yes (Worried about paying for his stay) HPI History of Present Illness Date of exam: 10/19/21 Chief Complaint: repeat Current symptoms/precipitating events: This documentation was produced utilizing voice recognition software. While every attempt is made to produce documentation that reflects the medical care received, errors may be present. Tom Khan is a 66 year old male who presents late for his scheduled follow-up appointment, but I was able to fit him in as another patient could move up. His attended the appointment with him. During the appointment, this patient presented as very flat in affect, exhibited thought blocking, and exhibited perseverant focus on financial concerns and concerns about employment. These concerns have been at the level of psychosis or delusional beliefs versus overvalued ideas. They have gotten worse recently. He has been depressed but denies passive or active suicidal ideation plan or intent. He reports feeling confident that he will let his know and utilize his crisi (more content not included)... Normal [facility] Loki 10-03-2021 A.OFFTALISHA [facility] [place] [address] Office Visit Report Signed Patient Name: Tom Khan 0 Date of : 1955 Age/Sex: 66 / M Date of Service: Location: [facility] Health Outpt Attending physician: Apolinar LUKE HPI History of Present Illness Date of exam: 10/03/21 Chief Complaint: repeat Current symptoms/precipitating events: Tom Khan is a 66 year old male Psych HPI AMB Note History of Present Illness Presenting problem: follow up Suicidal thoughts: No Homicidal thoughts: No Present for session: patient Therapy modalities: cognitive behavioral therapy (CBT) Psychotherapy progress notes: Tom is a 66-year-old man who has had obsessive thoughts regarding his wanting to return to work and his poor concentration. His focus on his he does not have enough money and worried about returning to work. In both circumstances ask him what the previous discussions have been he does remember that yes he has enough money and he does not need to return to work. Use CBT approach to discuss focusing on other things he had more control over i.e. such as what he would like to do for detention and to enjoy detention. He reports his wants to go to [place] for a couple of weeks and so began making that focus of the session and preparing for that idea. Discussed scheduling future appointments and talked with him about if he was able to change his focus that we could continue and patient did detect to reschedule. Psychiatric visit total time minutes: 50 Violent Behavior No Current/Previous Provider Psychiatrist: Ian Farfan MD Therapist: TI Harrington Visit Details Total time (minutes): 50 Assessment and Plan with Goals Assessment Plan (1) Major depressive disorder, recurrent severe without psychotic features: Code(s): F33.2 - Major depressive disorder, recurrent severe without psychotic features Category: Medical (2) OCD (obsessive compulsive disorder): Code(s): F42.9 - Obsessive-compulsive disorder, unspecified Category: Medical (3) Major depressive disorder: Code(s): F32.9 - Major depressive disorder, single episode, unspecified Category: Medical Qualifiers: Active/Remission status: in partial remission Major depression recurrence: recurrent Qualified Code(s): F33.41 - Major depressive disorder, recurrent, in partial remission (4) Generalized anxiety disorder: Code(s): F41.1 - Generalized anxiety disorder Category: Medical Dictated By: TI Harrington 10/03/21 1458 Signed By: 10/03/21 2049 Cosigned By (if applicable): [id number] cc: TI Harrington [facility] Loki 09-22-2021 K[facility] [address] [place] [id number] Office Visit Report Signed Patient Name: Tom Khan 0 Date of : 1955 Age/Sex: 65 / M Date of Service: Location: [facility] Health Outpt Attending physician: Karen Sotelo CNP Intake Intake Visit Reasons: repeat Allergies Allergy/AdvReac Type Severity Reaction Status Date / Time No Known Drug Allergies Allergy Verified 08/08/21 15:02 Current Medication List - Last Reconciled 09/22/21 by Karen Sotelo CNP amlodipine 5 mg tablet 5 mg PO DAILY ascorbic acid (vitamin C) 500 mg tablet (Vitamin C) 1,000 mg (2 x 500 mg) PO DAILY 30 days bempedoic acid 180 mg-ezetimibe 10 mg tablet (Nexlizet) 1 tab PO DAILY benztropine 0.5 mg tablet 0.5 mg PO BID 30 days buspirone 30 mg tablet 30 mg PO BID 90 days chlorthalidone 25 mg tablet 25 mg PO DAILY cholecalciferol (vitamin D3) 25 mcg (1,000 unit) tablet 125 mcg (5 x 25 mcg (1,000 unit)) PO DAILY 30 days clonidine HCl 0.1 mg tablet 0.1 mg PO BID desvenlafaxine succinate 50 mg tablet,extended release 24 hr 50 mg PO DAILY 30 days diphenhydramine HCl 25 mg capsule 25 mg PO Q6H 30 days PRN exenatide microspheres 2 mg/0.85 mL subcutaneous auto-injector (Bydureon BCise) 2 mg subcut DAILY exenatide microspheres 2 mg/0.85 mL subcutaneous auto-injector (Bydureon BCise) 2 mg subcut QWEEK haloperidol 5 mg tablet 2.5 mg (1/2 x 5 mg) PO ,18 30 days insulin glargine 100 unit/mL (3 mL) subcutaneous pen (Basaglar KwikPen U-100 Insulin) 48 units subcut DAILY labetalol 200 mg tablet 200 mg PO BID lorazepam 1 mg tablet 1 mg PO BID 30 days metformin 500 mg tablet 500 mg PO DAILY trazodone 100 mg tablet 100 mg PO BEDTIME 30 days PRN zinc sulfate 50 mg zinc (220 mg) capsule 50 mg PO DAILY 30 days History PFSH Medical History (Updated 08/22/21 @ 00:00 by Tyrone Howe) Diabetes Generalized anxiety disorder HTN (hypertension) with goal to be determined Hyponatremia Major depressive disorder NIDIA (obstructive sleep apnea) Retinal detachment Social anxiety disorder Surgical History Hx of CABG Hx of total knee arthroplasty Family History Father Heart disease Mother Stroke Social History History Provided by: Patient Usual Living Arrangement: With Spouse/Significant Other Anyone at Home Need Help While Hospitalized: No Smoking Status: Never Smoker Other Form of Tobacco Used: Never Used Second Hand Tobacco Smoke Exposure: No How Often do you Have a Drink Containing Alcohol: Never How Many Standard Drinks Containing Alcohol do you Have on a Typical Day: None How Often do you Have Six or More Drinks on One Occasion: Never AUDIT-C Alcohol Total Score: 0 Caffeine Use: Yes Non-Prescribed Substance Use: Denies Use History of Physical Abuse: No History of Emotional Abuse: Yes (Father could be distant) History of Sexual Abuse: No 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 Living [place]: No Highest Level of School Completed/Degree Received: Bachelor's Degree Cultural/Personal/Religi ous Beliefs that Affect Patient Care: No Cultural or Jainism Modesty Issues Regarding Care by Staff of the Opposite Sex: No Jainism Items Worn: No Other Factors Affecting Patient Care Experience: No Patient Discharge Plan Description: Return Home Services Needed at Discharge: No Services Needed Discharge Planning/Case Management Referral Needed: No Concerns Regarding Hospital Charges: Yes (Worried about paying for his stay) HPI History of Present Illness Date of exam: 09/22/21 Chief Complaint: repeat Current symptoms/precipitating events: Please note that this dictation was created using voice recognition software. While attempts have been made to review the dictation as it is transcribed, on occasion the spoken word may be misinterpreted by technology leading to omissions or inappropriate words or phrases. Tom Khan is a 65 year old male presenting today for medication management, and also as a follow-up to his recent participation in our geriatric intensive outpatient program. Tom reports that he has been compliant with taking his medication, and he is actually reporting that he is doing better. Comparing Tom's presentation today to multiple times I have seen him in the past, he is presenting very improved today. Patient does report that he has daily episodes in which he feels that it is hard to focus. He describes feeling a dullness in the back of his head. However in his neck statement, he states I am able to think better but I am not 100% yet. He reports that he wishes his thought process worked better. Patient reports that (more content not included)... Normal [facility] Covid-19 PCR (CVDTB)on SARS-CoV-2 (COVID-19) RNA JOSE+probe Ql (Unsp spec) Not detected Normal NOT DETECTED [facility] Comment on above: Result Comment: This test is not yet approved or cleared by the [place] FDA. When there are no FDA-approved or cleared tests available, and other criteria are met, FDA can make tests available under an emergency access mechanism called an Emergency Use Authorization (EUA). The EUA for this test is supported by the [employer] of Health and Human Service's (HHS's) declaration that circumstances exist to justify the emergency use of in vitro diagnostics for the detection and/or diagnosis of the virus that causes COVID-19. This EUA will remain in effect (meaning this test can be used) for the duration of the COVID-19 declaration justifying emergency of IVDs, unless it is terminated or revoked by FDA (after which the test may no longer be used). When diagnostic testing is negative, the possibility of a false negative should be considered in the context of a patient's recent exposures and the presence of clinical signs and symptoms consistent with SARS-CoV-2. Performed By: #### C BC #### [facility] Laboratory [address] [place] [address] Dr. Cary Liu 08-05-[address] [address] Progress Note Signed Patient Name: Tom Khan 0 Date of : 1955 Age/Sex: 65 / M Location: [facility] Partial Attending physician: Gilles Farfan MD Subjective Subjective Date of exam: 08/05/21 Subjective Narrative: Tom is seen along with his Jaci today for follow-up in [facility]. He has been in the program for about 4 weeks already and has made minimal improvement. He continues to present ruminative and fixated on irrational concerns like work and finances, despite these repeatedly being explained as not an issue. He did wake up last night with a panic attack, but had not taken his trazodone for sleep. I started him on Vraylar and stopped Abilify 2 weeks ago when last seen by me in the program for hopeful improvement in specifically negative symptoms of his diagnosis and improvement in psychotic-like fixation and obsessive thinking. His did not want to increase the medication when it was recommended last week over the phone, as she wanted to wait and had concerns. Therefore he stayed on 1.5 mg daily for the past 2 weeks, and he is presenting very similar to me as he has in the past, with report by his that he is at least the same, or possibly worse from when he was on the Abilify. No side effects are reported from the Vraylar switch. Exam Mental Status Exam - Psych Narrative: Patient presents calm and cooperative. He is nonspontaneous in speech but answers questions appropriately with some mild to moderate thought blocking noted. He denies any thoughts of harm to himself or anybody else currently, and he is not aggressive. He does not appear to be actively responding to internal stimuli. His thought content seems to be fairly organized at this time, and he states he has still been having ruminative thinking about irrational anxieties, but it is not obvious at this immediate appointment with the exception of when he asked once towards the end of appointment if I think he can go back to work. I answered him stating at this point I do not believe so and I do not believe he should focus on that, and he was mildly accepting. Assessment and Plan Assessment and plan (1) Major depressive disorder, recurrent severe without psychotic features: Status: Acute (2) Generalized anxiety disorder: Status: Acute (3) Social anxiety disorder: Status: Acute (4) OCD (obsessive compulsive disorder): Status: Acute Plan Plan: With significant discussion and education, Tom is agreeable to increasing Vraylar to 3 mg daily, as he is tolerating it fine, to give more trial for efficacy. He is recommended to take his trazodone at least 1 tablet nightly for now at least, and we will continue the BuSpar and Celexa. I do give them 1 week of samples of Vraylar 3 mg, as we have not ordered it from the pharmacy as we are trying it still and watching for effect. For next week we are going to have him just come back Sunday and Sunday, as he is not fully benefiting from the group setting, and until medication starts working better, it is likely he may not benefit. Since the medication may take about a week for improvement with the increase, we will have him come in for the later day sessions. Both Jaci and Tom are aware of crisis resources if needed when not here. Dictated By: DMITRY Brice 08/05/211630 Signed By: 08/05/211634 Cosigned By (if applicable): [id number] cc: DMITRY Brice Normal [facility] COMPREHENSIVE METABOLIC PANE Néstor 08-04-2021 Albumin [Mass/Vol] 4.7 g/dL Normal 3.6-5.1 [facility] Comment on above: Performed By: #### 1 594, 9671 #### [facility] [address] [address] Supervisor Finishing Room: Ck Wallis MD Albumin/Globulin [Mass ratio] 1.5 {ratio} Normal 1.0-2.5 [facility] Comment on above: Performed By: #### 1 023, 193 #### [facility] [address] [address] Supervisor Finishing Room: Ck Wallis MD ALP [Catalytic activity/Vol] 39 U/L Normal 35-144 [facility] Comment on above: Performed By: #### 1 023, 1580 #### [facility] of [address], [address] [place] [address] Supervisor Finishing Room: Ck Wallis MD ALT [Catalytic activity/Vol] 39 U/L Normal 9-46 [facility] Comment on above: Performed By: #### 1 0231, 7600 #### [facility] of [address], [address] [place] [address] Supervisor Finishing Room: Ck Wallis MD AST [Catalytic activity/Vol] 29 U/L Normal 10-35 [facility] Comment on above: Performed By: #### 1 0231, 7600 #### [facility] of [place] [address] Supervisor Finishing Room: Ck Wallis MD Bilirubin [Mass/Vol] 0.3 mg/dL Normal 0.2-1.2 [facility] Comment on above: Performed By: #### 1 023, 7600 #### [facility] of [place] [address] Supervisor Finishing Room: Ck Wallis MD BUN/CREATININE RATIO NOT APPLICABLE Normal 6-22 [facility] Comment on above: Performed By: #### 1 023, 7600 #### [facility] of [place] [address] Supervisor Finishing Room: Ck Wallis MD Calcium [Mass/Vol] 9.6 mg/dL Normal 8.6-10.3 [facility] Comment on above: Performed By: #### 1 0231, 7600 #### [facility] of [address], [address] [place] [address] Supervisor Finishing Room: Ck Wallis MD Chloride [Moles/Vol] 101 mmol/L Normal 98-110 [facility] Comment on above: Performed By: #### 1 0231, 7600 #### [facility] of [address], [address] [place] [address] Supervisor Finishing Room: Ck Wallis MD CO2 [Moles/Vol] 27 mmol/L Normal 20-32 [facility] Comment on above: Performed By: #### 1 230, 7600 #### [facility] [address], [address] [place] [address] Supervisor Finishing Room: Ck Wallis MD Creatinine [Mass/Vol] 1.00 mg/dL Normal 0.70-1.25 [facility] Comment on above: Result Comment: For patients >49 years of age, the reference limit for Creatinine is approximately 13% higher for people identified as -Surinamese. Performed By: #### 1 230, 7600 #### [facility] [address], [address] [place] [address] Supervisor Finishing Room: Ck Wallis MD eGFR NON-AFR. GIBRALTARIAN 80 mL/min/1.73m2 Normal > OR = 60 [facility] Comment on above: Performed By: #### 1 230, 7600 #### [facility] [place] [address] Supervisor Finishing Room: Ck Wallis MD GFR/1.73 sq M.predicted among blacks MDRD (S/P/Bld) [Vol rate/Area] 92 mL/min/{1.73_m2} Normal > OR = 60 [facility] Comment on above: Performed By: #### 1 230, 7600 #### [facility] [place] [address] Supervisor Finishing Room: Ck Wallis MD Globulin (S) [Mass/Vol] 3.1 g/dL Normal 1.9-3.7 [facility] Comment on above: Performed By: #### 1 230, 7600 #### [facility] [place] [address] Supervisor Finishing Room: Ck Wallis MD Glucose [Mass/Vol] 135 mg/dL High 65-99 [facility] Comment on above: Result Comment: Fasting reference interval For someone without known diabetes, a glucose value >125 mg/dL indicates that they may have diabetes and this should be confirmed with a follow-up test. Performed By: #### 1 230, 7600 #### [facility] of [place] [address] [place] [address] Supervisor Finishing Room: Ck Wallis MD Potassium [Moles/Vol] 3.9 mmol/L Normal 3.5-5.3 [facility] Comment on above: Performed By: #### 1 0231, 7600 #### [facility] of [place] [address] Supervisor Finishing Room: Ck Wallis MD Protein [Mass/Vol] 7.8 g/dL Normal 6.1-8.1 [facility] Comment on above: Performed By: #### 1 0231, 7600 #### [facility] of [place] [address] Supervisor Finishing Room: Ck Wallis MD Sodium [Moles/Vol] 138 mmol/L Normal 135-146 [facility] Comment on above: Performed By: #### 1 023, 7600 #### [facility] of [place] [address] Supervisor Finishing Room: Ck Wallis MD Urea nitrogen [Mass/Vol] 25 mg/dL Normal 7-25 [facility] Comment on above: Performed By: #### 1 0231, 7600 #### [facility] of [place] [address] Supervisor Finishing Room: Ck Wallis MD LIPID PANEL, [facility] 12-0 Cholesterol [Mass/Vol] 166 mg/dL Normal <200 [facility] Comment on above: Performed By: #### 1 0231, 7600 #### [facility] of [place] [address] Supervisor Finishing Room: Ck Wallis MD Cholesterol in HDL [Mass/Vol] 41 mg/dL Normal > OR = 40 [facility] Comment on above: Performed By: #### 1 0231, 7600 #### [facility] of [place] [address] Supervisor Finishing Room: Ck Wallis MD Cholesterol in LDL [Mass/Vol] 85 mg/dL Normal [facility] Comment on above: Result Comment: Refe rence range: <100 Desirable range <100 mg/dL for primary prevention; <70 mg/dL for patients with CHD or diabetic patients with > or = 2 CHD risk factors. LDL-C is now calculated using the Kimo calculation, which is a validated novel method providing better accuracy than the Friedewald equation in the estimation of LDL-C. Nathan SS et al. KETTY. 2013;310(19): 5906-7425 (http://education.[employer] medical.Science Exchange/faq/CDT002) Performed By: #### 1 023, 7600 #### [facility] [address], [address] [place] [address] Supervisor Finishing Room: Ck Wallis MD Cholesterol.total/ Cholesterol in HDL [Mass ratio] 4.0 {ratio} Normal <5.0 [facility] Comment on above: Performed By: #### 1 023, 0 #### [facility] [address], [address] [place] [address] Supervisor Finishing Room: Ck Wallis MD NON HDL CHOLESTEROL 125 mg/dL (calc) Normal <130 [facility] Comment on above: Result Comment: For patients with diabetes plus 1 major ASCVD risk factor, treating to a non-HDL-C goal of <100 mg/dL (LDL-C of <70 mg/dL) is considered a therapeutic option. Performed By: #### 1 023, 7600 #### [facility] [address], [address] [place] [address] Supervisor Finishing Room: Ck Wallis MD Triglyceride [Mass/Vol] 332 mg/dL High <150 [facility] Comment on above: Result Comment: If a non-fasting specimen was collected, consider repeat triglyceride testing on a fasting specimen if clinically indicated. Trever et al. J. of Clin. Lipidol. 2015;9:129-169. Performed By: #### 1 023, 7600 #### [facility] [address], [address] [place] [address] Supervisor Finishing Room: Ck Wallis MD Covid-19 PCR (CVDTBH)on 07-06 SARS-CoV-2 (COVID-19) RNA JOSE+probe Ql (Unsp spec) Not detected Normal NOT DETECTED [facility] Comment on above: Result Comment: This test is not yet approved or cleared by the [place] FDA. When there are no FDA-approved or cleared tests available, and other criteria are met, FDA can make tests available under an emergency access mechanism called an Emergency Use Authorization (EUA). The EUA for this test is supported by the [place] of Health and Human Service's (HHS's) declaration that circumstances exist to justify the emergency use of in vitro diagnostics for the detection and/or diagnosis of the virus that causes COVID-19. This EUA will remain in effect (meaning this test can be used) for the duration of the COVID-19 declaration justifying emergency of IVDs, unless it is terminated or revoked by FDA (after which the test may no longer be used). When diagnostic testing is negative, the possibility of a false negative should be considered in the context of a patient's recent exposures and the presence of clinical signs and symptoms consistent with SARS-CoV-2. Performed By: #### [facility] #### [facility] [address] [place] [address] [address] Cary Liu 07-22-2021 [place] [address] Progress Note Signed Patient Name: Tom Khan 0 Date of : 1955 Age/Sex: 65 / M Location: Geriatric [facility] Partial Attending physician: Gilles Farfan MD Subjective Subjective Date of Exam: 07/22/21 Subjective Narrative: Please note that this documentation was created using voice recognition software and dictation. While attempts are routinely made in earnest to review the dictation as it is transcribed and ensure 100% accuracy, it is possible that on occasion the spoken word may be misinterpreted by technology and could lead to omissions or inappropriate words or phrases in the following document. Tom is seen today for checkup and GIOP. He presents similar to how he presented 2 weeks ago when I last saw him. He is being seen weekly for med management, and last week was seen by Dr. Farfan his outpatient provider also working in [facility]. Dr. Farfan increase Celexa to 40 mg daily and Tom has tolerated that and is continuing on Abilify 7 mg day total. He has been on Abilify for quite a while and today I am talking him about possible increase of Abilify or change in medication, as his rumination, irrational anxiety and thought process has remained fixated on irrational issues as impact past notes. When I go through his chart I reviewed with Tom his genetic testing that was done by a prior psychiatrist and the issues with Abilify metabolism and the side effects he is having already with it and has had in the past, and I do recommend we change Abilify to a different agent today. While reviewing the genetic testing I also called Dr. Farfan who is in his office working today and we discussed collaboratively with Tom in the room that we both believe discontinuation of Abilify and start in trial of Vraylar is the best decision right now for his continued lack of progress psychiatrically. Tom is nervous about the change, which is typical for him with any change, but is agreeable to this and I also am going to print out his med list and make sure his knows the changes as well. Exam Mental Status Exam - Psych Narrative: Patient presents calm and cooperative. He is nonspontaneous in speech but answers questions appropriately with some mild to moderate thought blocking noted. He denies any thoughts of harm to himself or anybody else currently, and he is not aggressive. He does not appear to be actively responding to internal stimuli. His thought content seems to be fairly organized at this time, and he states he has still been having ruminative thinking about irrational anxieties, but it is not obvious at this immediate appointment with the exception of when he asked once towards the end of appointment if I think he can go back to work. I answered him stating at this point I do not believe so and I do not believe he should focus on that, and he was mildly accepting. Assessment and Plan Assessment and plan (1) Major depressive disorder, recurrent severe without psychotic features: Status: Acute (2) Generalized anxiety disorder: Status: Acute (3) Social anxiety disorder: Status: Acute (4) OCD (obsessive compulsive disorder): Status: Acute Plan Plan: With collaboration and discussion with Dr. Farfan, we both recommend that at this time we discontinue the Abilify Tom has been on and has had lack of improvement in efficacy noted with some side effects still, and start Vraylar. His genetic testing is reviewed today and we will provide samples of Vraylar in the outpatient clinic, and Dr. Farfan is agreeable to set that up for pickup today after he leaves the hospital program. He will be seen weekly still for medication management and knows he can contact the office in between or the partial program if he is having any issues when not here, and is also aware of crisis resources available to him 24 hours a day. Otherwise he will continue the BuSpar, Celexa, trazodone, and clonazepam as needed. Dictated By: DMITRY Brice 07/22/21 1525 Signed By: 07/22/21 1529 Cosigned By (if applicable): [id number] cc: DMITRY Brice Normal [facility] EXAMINATION: MRI BRA IN [facility], 07/21/2021 12:59 PM EST HISTORY: Cervical spondylosis without myelopathy COMPARISON: None. TECHNIQUE: MRI of the brain was performed without IV contrast. FINDINGS: CEREBRUM: No edema, hemorrhage, mass, acute infarction, or inappropriate atrophy. Mild scattered hyperintense foci are present, typical for a patient of this age, most commonly caused by small vessel ischemic changes. CEREBELLUM: No edema, hemorrhage, mass, acute infarction, or inappropriate atrophy. BRAINSTEM: No edema, hemorrhage, mass, acute infarction, or inappropriate atrophy. CSF SPACES: Ventricles, cisterns, and sulci are appropriate for age. No hydrocephalus, subarachnoid hemorrhage, or mass. SKULL: No mass or other significant visible lesion. SINUSES: Moderate right and mild left maxillary sinus disease ORBITS: Limited views are unremarkable. OTHER: Negative. IMPRESSION: Mild scattered white matter signal abnormality. Nonspecific. Chronic small vessel ischemic changes are favored No acute infarct Electronically authenticated by: LULA RODRIGUEZ Date: 2021-07-21 14:13 Normal [facility] P.PN.PSYon 07-15-2021 P.PN.PSY [place] [id number] Progress Note Signed Patient Name: Tom Khan 0 Date of : 1955 Age/Sex: 65 / M Location: Geriatric [facility] Partial Attending physician: Gilles Farfan MD Subjective Subjective Date of Exam: 07/15/21 Subjective Narrative: Tom was seen for medication management as part of his treatment in our intensive outpatient program. We spent 40 minutes together. During this time he continued to ruminate about his need to look for a job and voiced a rational concerns about his financial situation. Attempts were made to change the topic of conversation but he was quite perseverative regarding his need to get back into working. He has set up several recent job interviews despite the fact that we have recommended that he avoid these interviews at this time. I discussed with him at length that he would take his depression with him to any job as opposed to feeling like the job would fix his depression. He recognizes that he has been feeling depressed even while he is working at [employer] which provides evidence for him that a job is not going to magically fix his depression. We talked about his obsessive rumination regarding his financial situation and how he tends to catastrophize his financial situation into an emergency when in reality it is far from an urgent situation. He does report problems with anhedonia. He reports problems with depressed mood. He admits to continued obsessive rumination. Although his beliefs are irrational they do not seem to be of delusional intensity at this time. Having said that I do believe he would benefit from an increase in his antipsychotic or switch to another antipsychotic. Tom expressed hesitancy to increase his Abilify due to concerns it might be contributing to mouth movements. He did not exhibit any abnormal mouth movements during our session today. He was agreeable to increasing his Celexa to help with his depression as well as his obsessive ruminations. We agreed that further conversations could take place next week about increasing Abilify or switching to a different antipsychotic. Exam Mental Status Exam - Psych Appearance: casually dressed and adequately groomed Attitude: cooperative Activity/Motor Behavior: psychomotor slowing and other (no abnormal mouth movements noted today) Speech: regular rate, regular volume and regular prosody Mood: depressed, anhedonic and anxious Affect: constricted Thought Process: perseverating Thought Content: obsessions (obsessive focus on need to work and finances) and other (does not know his purpose) Suicidal Ideation: passive; Not active and No intent Homicidal Ideation: none Attention: intact Sensorium/Orientation: awake and alert Memory/Cognition: intact Insight: poor Judgement: impaired Assessment and Plan Assessment and plan (1) Major depressive disorder, recurrent severe without psychotic features: Status: Acute (2) Generalized anxiety disorder: Status: Acute (3) Social anxiety disorder: Status: Acute (4) OCD (obsessive compulsive disorder): Status: Acute Plan Plan: Tom continues to be hyper focused on getting a job and avoiding financial calamity. He seems to continue to be making emergencies in his mind are a nonemergent issues. He is having some passive suicidal ideation but denies any active suicidal intent or plan or any concerns about his safety at this time. Crisis planning was discussed with the patient. If they were to develop any concerns about their safety they are to contact the [facility] office. If the office is not open they are to contact emergency services, the crisis hotline, or go to the emergency room. We will increase Celexa to 40 mg daily. He was reluctant to increasing his Abilify at this time due to concerns about the possibility of mouth movements. After we see how he tolerates the increase in Celexa we may want to further consider increasing Abilify or switching to a different antipsychotic. Dictated By: Gilles Farfan MD 07/15/21 [id number] Signed By: 07/15/21 3797 Cosigned By (if applicable): [id number] cc: Gilles Farfan MD [facility] P.PN.PSYon 07-01-2021 [place] [address] Progress Note Signed Patient Name: Tom Khan 0 Date of : 1955 Age/Sex: 65 / M Location: [facility] Partial Attending physician: Gilles Farfan MD Subjective Subjective Date of Exam: 07/01/21 Subjective Narrative: Tom is seen today for medication checkup as part of the GIOP program. He presents calm without obvious anxiety, but he does get up a couple times during assessment and pace, relating he is restless at times. It seems he is having mild to moderate at worst thought blocking currently, but he is cooperative with assessment questions and for the most part organized and appropriate in responses. He doesn't feel he has improved in regards to depression since being in the program so far for about a week. He was started on Celexa and Pristiq stopped when seen by Dr. Farfan last week, and he reports he is tolerated it with no side effects but as noted no improvement. He feels that maybe he is a little worse, but the only thing he can tell me to provide further information on that is that he has been sleeping the last few nights. Tom reports prior to the last few nights he has been sleeping pretty well without taking anything for sleep, but in the past he has had insomnia and has been on medications for sleep. Last he was on trazodone, 50 mg, and he reports that was helpful when needed for sleep and he tolerated it. He endorses passive suicidal ideation and hopelessness intermittently, but denies any direct plan fairly adamantly, stating I would never do that to my . Tom has some insight into his illness as he can recognize that his level of rumination in regards to irrational concerns that have been consistent for him, including going back to work and finances, have continued but to a lesser degree possibly. He is not in crisis, and open to continuing the program, but does not feel medications have improved much so far and sleep is an issue. Exam Mental Status Exam - Psych Narrative: Patient presents calm and cooperative. He is nonspontaneous in speech but answers questions appropriately with some mild to moderate thought blocking noted. He denies any thoughts of harm to himself or anybody else currently, and he is not aggressive. He does not appear to be actively responding to internal stimuli. His thought content seems to be fairly organized at this time, and he states he has still been having ruminative thinking about irrational anxieties, but it is not obvious at this immediate appointment with the exception of when he asked once towards the end of appointment if I think he can go back to work. I answered him stating at this point I do not believe so and I do not believe he should focus on that, and he was receptive and easy to redirect. Assessment and Plan Assessment and plan (1) Major depressive disorder, recurrent severe without psychotic features: Status: Acute (2) Generalized anxiety disorder: Status: Acute (3) Social anxiety disorder: Status: Acute Plan Plan: Since Tom's meds were adjusted last week with new medication for anxiety and depression, we will give this time for efficacy without further changes with the exception of adding trazodone 50 mg 1-2 as needed for sleep back on board, as this worked in the past and he states he is not sleeping the last 3 nights in particular. He reports he is having hard time falling asleep and restless, but still getting some sleep, and he is agreeable to trying the trazodone again.. He will return to the program next week, and he is reminded of crisis resources in the meantime. He knows he can contact the unit emergency as well, and he will be seen for medication management again next week. Tom is knowledgeable about his medications and when he should be taking them, reports compliance, and denies needing any refills at this time. Dictated By: DMITRY Brice 07/01/21 1519 Signed By: 07/01/21 1522 Cosigned By (if applicable): [id number] cc: DMITRY Brice Normal [facility] CTA CHEST WO W CONon 021 CTA CHEST WO W CON EXAMINATION: CTA ETHEL ST WO W CON HISTORY: SHORTNESS OF BREATH COMPARISON: Chest radiograph, same date, previous CT 03/05/2019. TECHNIQUE: CT angiography of the pulmonary arteries following the administration of intravenous contrast. Coronal and sagittal MIP (maximum intensity projection) images were performed. A total of 100 mL Omnipaque 350 were administered. Dose reduction techniques were achieved by using automated exposure control and/or adjustment of mA and/or kV according to patient size and/or use of iterative reconstruction technique. FINDINGS: There is adequate opacification of the pulmonary arteries. There are no filling defects to indicate pulmonary embolism. There is mild tortuosity of the thoracic aorta. No dissection. There is mild dependent atelectasis within the lungs. No pleural effusion. The heart is enlarged. There are postoperative changes of coronary artery bypass graft. There is a low-attenuation lesion posteriorly within the left lobe of the thyroid gland measuring approximately 2 cm. This can be further characterized by ultrasound, as clinically indicated. Small mediastinal lymph nodes are likely reactive. There is a low-attenuation lesion at the dome of the liver, measuring 3.4 cm, likely a cyst. A small hiatal hernia is noted. Are small densities partially visualized in the region of the gallbladder fossa. It is unclear whether these represent small gallstones within a contracted gallbladder versus cholecystectomy clips. There are mild degenerative changes within the spine. IMPRESSION: No pulmonary embolism or aortic dissection. Mild dependent atelectasis within the lungs. Cardiomegaly, with postoperative changes of coronary artery bypass graft. Left lobe thyroid nodule. This can be further evaluated by thyroid ultrasound, as clinically indicated. Additional nonacute findings, as detailed above. Electronically authenticated by: CELINE OLIVERA Date: 2021-06-23 22:25 Normal [facility] FREE T4on 06-24-2021 Free T4 [Mass/Vol] 1.05 ng/dL Normal 0.78-2.19 [facility] Comment on above: Performed By: #### F T4 #### [facility] [address] [place], [place] [address] Dr. Cary Malagon P.HP.PSYon 06-24-2021 [place] [address] History Physical Report Signed Patient Name: Tom Khan 0 Date of : 1955 Age/Sex: 65 / M Location: Geriatric [facility] Attending physician: Gilles Farfan MD [facility] History of Present Illness Date of Exam: 06/24/21 Current symptoms/precipitating events: Tom Khan is a 65 year old male who presents today for an initial psychiatric examination as part of his treatment in our geriatric intensive outpatient program. He is well-known to this program related to past treatment. He has also received care in our inpatient geriatric psychiatry unit in the past. He wanted his Jaci to be present during the session. I met with Tom alone for 20 minutes and then his Jaci was present for the next 50 minutes. Tom admits to a history of depression since at least 1985. He has required multiple hospitalizations for severe depression associated with suicidal ideation. He was referred back to intensive outpatient treatment due to concerns about severe depression that was not responding to outpatient care. He currently presents reporting depressed mood and inability to enjoy things. He reports that he is focused on his finances and that he needs to get back to work or he will suffer financial calamity. This apparently is contrary to the truth according to his Laurie states that they have spoken with their financial project manager and they are actually in a very good financial situation. They own several properties that they rent and they have a small fortune put aside for detention money. 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 Tom repeated numerous times during our session that he needed to get back to work. 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 He actually has several interviews lined up in the future that Jaci is exasperated with because she knows he is not able to do the job at this point considering his anxiety level depression and lack of functioning. Tom does admit to having difficulties with focusing and concentrating. He does admit to problems with energy and ambition. His appetite is okay. He is been sleeping fair recently but does admit to issues with difficulty with falling asleep because of obsessive rumination. He denies any history of hallucinations. He has a history of strong suicidal ideation including having thoughts in the past of asphyxiate himself with a plastic bag, shooting himself, and cutting himself. He denies any history of following through with any suicide attempts. He did cut himself once in the past but reports that was not a suicide attempt. He denies problems with thought insertion, thought withdrawal, ideas of reference or thought broadcasting. His does report that he has had false beliefs in the past that she believes were most likely of a delusional nature. He denies any history of manic episodes characterized by decreased need for sleep, pressured speech, grandiosity, or euphoria. He does appear to be suffering from some obsessive doubt right now which is leading to a lot of behavior where he is seeking reassurance. He does have a history of being diagnosed with generalized anxiety and social anxiety disorder. Tom is most recently been on Abilify, Pristiq, and BuSpar. His Pristiq was recently decreased due to some concerns that it might be contributing to some abnormal mouth movements that he is no longer exhibiting. Review of Systems Status of ROS: Reports: 10 or more systems reviewed and unremarkable except as noted in History and below Constitutional: Reports: change in sleep pattern Respiratory: Reports: other (NIDIA, bronchitis) Neurological: Reports: involuntary movements (abnormal movements of mouth that have decreased since pristiq was decreased) Psychiatric: Reports: anxiety, difficulty concentrating and other (depressed mood) Endocrine: Reports: other (diabetes) History Psychiatric History History of multiple psychiatric hospitalizations since 1985. He had recent hospitalizations in our facility as well as treatment in intensive outpatient program. He follows with Dr. Karlee Farfan and Karen at [facility] health. He is currently on Pristiq, Abilify, and BuSpar. He has been on numerous other medications including Viibryd, Vraylar, BuSpar, Ativan, Lamictal, trazodone, Remeron, Zyprexa, Catapres, Latuda, Wellbutrin, Cymbalta, Effexor, Lexapro, Paxil, Prozac, Zoloft, Trintellix. Denies any history of inpatient or outpatient chemical dependency treatment. He has a history of strong suicidal ideation but no history of suicide attempts. He does have a history of cutting himself before but reports this was not a suicide attempts. History [facility] Medical H (more content not included)... Normal [facility] TSHon 06-24-2021 TSH 1.217 uIU/mL Normal 0.470-4.680 [facility] Comment on above: Performed By: #### T SH #### [facility] [address] [place] [address] Dr. Cary Malagon TSH RANGE SEE BELOW Normal The [facility] Comment on above: Result Comment: <0.3 4 UIU/ml HYPERTHYROID 0.34-5.60 UIU/ml EUTHYROID >5.60 UIU/ml HYPOTHYROID Performed By: #### T SH #### [facility] [address] [place] [address] [address] Cary Malagon CARDIAC CHAN ADMITon 021 CK [Catalytic activity/Vol] 100 U/L Normal 55-170 [facility] Comment on above: Performed By: #### C MADM #### [facility] [address] [address] [address] Cary Malagon CK.MB [Mass/Vol] 0.70 ng/mL Normal <=2.37 [facility] Comment on above: Performed By: #### C MADM #### [facility] [address] [place] [address] Dr. Cary Malagon HSTROP 7.2 pg/mL Normal 4.0-42.2 [facility] Comment on above: Result Comment: CUT- OFF POINTS HAVE BEEN ESTABLISHED BASED ON THE FOURTH UNIVERSAL DEFINITIONS OF MYOCARDIAL INFARCTION. THE UPPER REFERENCE LIMIT (URL) OF TROPONIN, DEFINED THE 99TH PERCENTILE OF cTnI DISTRIBUTION IN A REFERENCE POPULATION, HAS BEEN CONFIRMED THE DECISION THRESHOLD FOR DC DIAGNOSIS. Performed By: #### C MADM #### [facility] [address] [place] [address] Dr. Cary Malagon MERCY 47.0 ng/mL Normal <=121.0 [facility] Comment on above: Performed By: #### C MADM #### [facility] [address] [place] [address] Dr. Cary Malagon CBC AUTO DIFFon 06-23-2021 BASO # 0.0 103/ul Normal 0.0-0.1 [facility] Comment on above: Performed By: #### C BC #### [facility] [address] [place] [address] Dr. Cary Malagon Basophils/100 WBC (Bld) 0.3 % Normal 0.2-2.0 [facility] Comment on above: Performed By: #### C BC #### [facility] [address] [place] [address] Dr. Cary Malagon EO # 0.1 103/ul Normal 0.0-0.7 [facility] Comment on above: Performed By: #### C BC #### [facility] [address] [place] [address] Dr. Cary Malagon Eosinophils/100 WBC (Bld) 0.9 % Normal 0.9-7.0 [facility] Comment on above: Performed By: #### C BC #### [facility] [address] [place] [address] Dr. Cary Malagon Erythrocyte distribution width (RBC) [Ratio] 15.1 % Critically high 11.0-15.0 [facility] Comment on above: Performed By: #### C BC #### [facility] [address] [address] [address] Cary Malagon Hematocrit (Bld) [Volume fraction] 35.8 % Critically low 42.0-54.0 [facility] Comment on above: Performed By: #### C BC #### [facility] [address] [address] [address] Cary Malagon Hemoglobin (Bld) [Mass/Vol] 12.4 g/dL Critically low 14.0-18.0 [facility] Comment on above: Performed By: #### C BC #### [facility] [address] [address] [address] Cary Malagon IG # 0.04 10e3/ul Critically high 0.00-0.03 [facility] Comment on above: Performed By: #### C BC #### [facility] [address] [place] [address] Dr. Cary Malagon IG % 0.4 % Normal 0.0-0.5 [facility] Comment on above: Performed By: #### C BC #### [facility] [address] [address] [address] Cary Malagon LYMPH # 0.9 103/ul Critically low 1.2-3.8 [facility] Comment on above: Performed By: #### C BC #### [facility] [address] [place] [address] Dr. Cary Malagon Lymphocytes/100 WBC (Bld) 10.3 % Critically low 20.5-60.0 [facility] Comment on above: Performed By: #### C BC #### [facility] [address] [address] [address] Cary Malagon MANUAL DIFF REQ NO Normal [facility] Comment on above: Performed By: #### C BC #### [facility] [address] [place] [address] Dr. Cary Malagon MCH (RBC) [Entitic mass] 31.4 pg Normal 25.9-34.0 [facility] Comment on above: Performed By: #### C BC #### [facility] [address] [address] [address] Cary Malagon MCHC (RBC) [Mass/Vol] 34.6 g/dL Normal 29.9-35.2 [facility] Comment on above: Performed By: #### C BC #### [facility] [address] [address] [address] Cary Malagon MCV (RBC) [Entitic vol] 90.6 fL Normal 80.0-94.0 [facility] Comment on above: Performed By: #### C BC #### [facility] [address] [address] [address] Cary Malagon MONO # 1.1 103/ul Critically high 0.3-0.8 [facility] Comment on above: Performed By: #### C BC #### [facility] [address] [address] [address] Cary Malagon Monocytes/100 WBC (Bld) 11.9 % Normal 1.7-12.0 [facility] Comment on above: Performed By: #### C BC #### [facility] [address] [address] [address] Cary Malagon NEUT # 6.8 103/ul Critically high 1.4-6.5 [facility] Comment on above: Performed By: #### C BC #### [facility] [address] [address] [address] Cary Malagon Neutrophils/100 WBC (Bld) 76.2 % Critically high 43.0-75.0 [facility] Comment on above: Performed By: #### C BC #### [facility] [address] [address] [address] Cary Malagon Platelet mean volume (Bld) [Entitic vol] 9.2 fL Critically low 9.5-13.5 [facility] Comment on above: Performed By: #### C BC #### [facility] [address] [address] [address] Cary Malagon PLT 256 103/ul Normal 150-450 [facility] Comment on above: Performed By: #### C BC #### [facility] [address] [place] [address] Dr. Cary Malagon RBC 3.95 106/ul Critically low 4.70-6.10 [facility] Comment on above: Performed By: #### C BC #### [facility] [address] [place] [address] Dr. Cary Malagon WBC 8.9 103/ul Normal 4.0-11.0 [facility] Comment on above: Performed By: #### C BC #### [facility] [address] [place] [address] Dr. Cary Malagon CULTURE BLOODon 06-23-2021 Microscopic examination of blood, culture Culture Observations: NO GROWTH AT 5 DAYS. Normal [facility] Comment on above: Performed By: #### C BC #### [facility] [address] [place] [address] Dr. Cary Malagon Covid-19 PCR (CVDTBH)on 06-04 SARS-CoV-2 (COVID-19) RNA JOSE+probe Ql (Unsp spec) Not detected Normal NOT DETECTED [facility] Comment on above: Result Comment: When diagnostic testing is negative, the possibility of a false negative should be considered in the context of a patient's recent exposures and the presence of clinical signs and symptoms consistent with SARS-CoV-2. This test is not yet approved or cleared by the [place] Food and Drug Administration (FDA). This test was developed by [employer], [place], [place]. The performance characteristics of this test were validated by The [facility]. The results are not intended to be used as the sole means for clinical diagnosis or patient management decisions. The [facility] is authorized under Clinical Laboratory Improvement Amendments (CLIA) to perform high- complexity testing. Performed By: #### C VDTBH #### [facility] [address] [place] [address] Dr. Cary Malagon D-DIMERon 06-23-2021 D-DIMER 1.43 mg/L FEU Critically high 0.19-0.50 [facility] Comment on above: Performed By: #### C MP #### [facility] [address] [place] [address] Dr. Yilan Malagon D-DIMER COMMENTS SEE BELOW Normal [facility] Comment on above: Result Comment: Incr eases in D-Dimer concentration observed with thromboembolic events can be variable due to localization, size, and age of the thrombus. Therefore, a thromboembolic event cannot be diagnosed with certainty on the basis of the reference range. D-Dimers may also be elevated for a variety of disorders including: advanced age, , coronary disease, cancer, liver disease, infection, inflammation, hematoma, DIC, trauma, post-surgery, diabetes, thrombolytic or anticoagulant therapy, stress, and generalized hospitalization. Performed By: #### C MP #### [facility] [address] [place] [address] Dr. Cary Malagon PROF 14(COMP METB)on 021 Albumin [Mass/Vol] 3.6 g/dL Normal 3.5-5.0 [facility] Comment on above: Performed By: #### C MP #### [facility] [address] [place] [address] Dr. Cary Malagon Albumin/Globulin [Mass ratio] 1.0 {ratio} Normal [facility] Comment on above: Performed By: #### C MP #### [facility] [address] [place] [address] Dr. Cary Malagon ALP [Catalytic activity/Vol] 46 U/L Normal 38-126 [facility] Comment on above: Performed By: #### C MP #### [facility] [address] [place] [address] Dr. Cary Malagon ALT [Catalytic activity/Vol] 42 U/L Normal 21-72 [facility] Comment on above: Performed By: #### C MP #### [facility] [address] [place] [address] Dr. Cary Malagon Anion gap [Moles/Vol] 12.7 mmol/L Normal [facility] Comment on above: Performed By: #### C MP #### [facility] [address] [place] [address] Dr. Cary Malagon AST [Catalytic activity/Vol] 24 U/L Normal 17-59 [facility] Comment on above: Performed By: #### C MP #### [facility] [address] [address] [address] Cary Malagon Bilirubin [Mass/Vol] 0.4 mg/dL Normal 0.2-1.3 [facility] Comment on above: Performed By: #### C MP #### [facility] [address] [place] [address] [address] Cary Malagon Calcium [Mass/Vol] 8.7 mg/dL Normal 8.4-10.2 [facility] Comment on above: Performed By: #### C MP #### [facility] [address] [address] [address] Cary Malagon Chloride [Moles/Vol] 100 mmol/L Normal 98-107 [facility] Comment on above: Performed By: #### C MP #### [facility] [address] [place] [address] Dr. Cary Malagon CO2 [Moles/Vol] 27.0 mmol/L Normal 22.0-30.0 [facility] Comment on above: Performed By: #### C MP #### [facility] [address] [place] [address] Dr. Cary Malagon Creatinine [Mass/Vol] 1.18 mg/dL Normal 0.66-1.25 [facility] Comment on above: Performed By: #### C MP #### [facility] [address] [place] [address] Dr. Cary Malagon EGFR-AF GIBRALTARIAN >60 Normal >=60 [facility] Comment on above: Performed By: #### C MP #### [facility] [address] [place] [address] Dr. Cary Malagon EGFR-NON AF GIBRALTARIAN >60 Normal >=60 [facility] Comment on above: Performed By: #### C MP #### [facility] [address] [place] [address] Dr. Cary Malagon Globulin (S) [Mass/Vol] 3.6 g/dL Normal [facility] Comment on above: Performed By: #### C MP #### [facility] [address] [place] [address] Dr. Cary Malagon Glucose [Mass/Vol] 189 mg/dL Critically high 74-106 T he [facility] Comment on above: Performed By: #### C MP #### [facility] [address] [address] [address] Cary Malagon Potassium [Moles/Vol] 3.7 mmol/L Normal 3.4-5.0 [facility] Comment on above: Performed By: #### C MP #### [facility] [address] [address] [address] aCry Malagon Protein [Mass/Vol] 7.2 g/dL Normal 6.1-8.2 [facility] Comment on above: Performed By: #### C MP #### [facility] [address] [address] [address] Cary Malagon Sodium [Moles/Vol] 136 mmol/L Critically low 137-145 Th [facility] Comment on above: Performed By: #### C MP #### [facility] [address] [address] [address] Cary Malagon Urea nitrogen [Mass/Vol] 25.0 mg/dL Critically high 9.0-20.0 [facility] Comment on above: Performed By: #### C MP #### [facility] [address] [address] [address] Cary Malagon Urea nitrogen/Creatinin e [Mass ratio] 21.2 mg/mg Normal [facility] Comment on above: Performed By: #### C MP #### [facility] [facility] [address] [address] [address] Cary Malagon XR CHEST 1 Von 06-23-2021 XR CHEST 1 V EXAM: XR CHEST 1 V HISTORY: The patient is a 65-year-old male with 2 day history of cough. COMPARISON: 10/13/2020. FINDINGS: The lungs are underinflated but clear with no confluent airspace infiltrates, pleural effusions, or pneumothoraces. The cardiac silhouette is at the upper limit of normal. The trachea is midline. IMPRESSION: No acute cardiopulmonary abnormalities. Electronically authenticated by: MACO QUICK Date: 2021-06-23 20:43 Normal [facility] Loki 06-06-2021 [facility] [place] [address] Office Visit Report Signed Patient Name: Tom Khan 0 Date of : 1955 Age/Sex: 65 / M Date of Service: Location: [facility] Out[facility] Attending physician: Apolinar LUKE HPI History of Present Illness Date of Exam: 06/06/21 Chief Complaint: repeat Current symptoms/precipitating events: Tom Khan is a 65 year old male Psych HPI AMB Note History of Present Illness Presenting problem: ruminating and obsessive thoughts Suicidal thoughts: No Homicidal thoughts: No Present for session: patient and spouse Progress: deteriorating Participation and compliance: fair Psychotherapy progress notes: Tom is a 65-year-old male in treatment for major depressive disorder, generalized anxiety disorder, and social anxiety disorder. Appointment was brief due to previously seeing Karen Sotelo for medication management prior to the session. Today he attends with his who is quite frustrated. Patient is ruminating about his need to return to his previous work because they need the money, however patient is also able to report the amount of money they have. He reports he would be more secure with a couple more million in the bank. Patient has bruising the indeed abs and encouraged him not to do that at this time. is good about pointing out the rational thinking and having him look at truth and in the short-term Tom can respond but cannot maintain those thoughts for more than a couple of minutes. She is now threatening to leave as it is difficult to manage those ongoing thinking patterns. Tom's is in therapy herself at this time and encourage patient to continue that. General be starting with the geriatric IOP possibly as early as next week he is on their list when there is an opening. This was helpful for him in the past. And at that point then he will resume therapy. He has not been seen for several months and discussed the need for ongoing consistent work. Psychiatric visit total time minutes: 30 Violent Behavior No Current/Previous Provider Psychiatrist: Karlee Farfan MD Therapist: TI Harrington Visit Details Total time (minutes): 30 Assessment and Plan with Goals Assessment Plan (1) Generalized anxiety disorder: Code(s): F41.1 - Generalized anxiety disorder Category: Medical (2) Major depressive disorder: Code(s): F32.9 - Major depressive disorder, single episode, unspecified Category: Medical Qualifiers: Major depression recurrence: recurrent Active/Remission status: in partial remission Qualified Code(s): F33.41 - Major depressive disorder, recurrent, in partial remission (3) Social anxiety disorder: Code(s): F40.10 - Social phobia, unspecified Category: Medical Dictated By: TI Harrington 06/06/21 1447 Signed By: 06/06/21 4663 Cosigned By (if applicable): [id number] cc: [facility] [address] [place] [id number] Office Visit Report Signed Patient Name: Tom Khan 0 Date of : 1955 Age/Sex: 65 / M Date of Service: Location: [facility] Out[facility] Attending physician: Karen Sotelo CNP Intake Vital Signs 06/06/21 12:07 Height 5 ft 11 in Weight 118.388 kg BMI 36.3 BP 134/76 Respiration 16 Pulse 70 Intake Visit Reasons: repeat Allergies Allergy/AdvReac Type Severity Reaction Status Date / Time No Known Allergies Allergy n/a Uncoded 06/06/21 12:08 Current Medication List - Last Reconciled 06/06/21 by Lucía Napier amlodipine 5 mg tablet 5 mg PO DAILY aripiprazole 2 mg tablet 2 mg PO DAILY 30 days aripiprazole 5 mg tablet 5 mg PO DAILY 30 days buspirone 30 mg tablet 30 mg PO BID 30 days chlorthalidone 25 mg tablet 25 mg PO DAILY clonazepam 0.5 mg tablet 0.25 mg PO BID PRN clonidine HCl 0.1 mg tablet 0.1 mg PO BID desvenlafaxine succinate 25 mg tablet,extended release 24 hr (Pristiq) 25 mg PO DAILY 30 days exenatide microspheres 2 mg/0.85 mL subcutaneous auto-injector mg subcut insulin glargine 100 unit/mL (3 mL) subcutaneous pen units subcut labetalol 200 mg tablet 200 mg PO BID metformin 500 mg tablet 500 mg PO BID terbinafine HCl 250 mg tablet 250 mg PO DAILY Is patient having pain: Yes (knees and h/a) Pain scale (0-10): 1 History PFSH Medical History (Updated 04/06/21 @ 11:52 by Karlee Farfan MD) Diabetes Generalized anxiety disorder HTN (hypertension) with goal to be determined Hyponatremia Major depressive disorder NIDIA (obstructive sleep apnea) Retinal detachment Social anxiety disorder Surgical History (Updated 04/06/21 @ 09:39 by Karlee Farfan MD) Hx of CABG Hx of total knee arthroplasty Family History (Updated 04/06/21 @ 09:39 by Karlee Farfan MD) Father Heart disease Mother Stroke Social History (Updated 06/06/21 @ 12:09 by Lucía Napier) History Provided by: Patient Usual Living Arrangement: With Spouse/Significant Other Smoking Status: Never Smoker Other Form of Tobacco Used: Never Used How Often do you Have a Drink Containing Alcohol: Monthly or Less How Many Standard Drinks Containing Alcohol do you Have on a Typical Day: 1 or 2 How Often do you Have Six or More Drinks on One Occasion: Never AUDIT-C Alcohol Total Score: 1 Non-Prescribed Substance Use: Denies Use HPI History of Present Illness Date of Exam: 06/06/21 Chief Complaint: repeat Current symptoms/precipitating events: Please note that this dictation was created using voice recognition software. While attempts have been made to review the dictation as it is transcribed, on occasion the spoken word may be misinterpreted by technology leading to omissions or inappropriate words or phrases. Tom Khan is a 65 year old male presenting today for medication management appointment his is present and did sit in on the entirety of today's appointment. Patient arrived to the office to learn that he was scheduled for birz-ow-[id number] appointments with this provider, and then also his therapist. Upon arrival to the office today patient and were informed that they are only allowed 1 appointment per day, due to insurance. Patient and were distressed to learn this, and did speak with our unemployment insurance hearing officer today regarding this policy. Patient did see this provider, and then did agreed to see the therapist at the conclusion of appointment with provider, patient is aware that he may have to self pay for that appointment. Patient's did most of the talking during today's appointment. Tom is currently on the wait list to go into our geriatric IOP program, in potential start date is not known at this time. Patient continues working at [employer] part-time, approximately 21 hours/week, which is three 7-hour days. Patient is staying in the limits to be able to maintain his disability and also Social Security benefits. 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 She reports that Tom continues to be very fixated on financial problems and medical bills coming in, although he and have both reiterated numerous times that they are not struggling financially, and are in fact. well off. Patient's continues to state that Tom has trouble focusing and that he sleeps a lot. She is also noticed since patient saw Dr. Jeremiah olsen, (more content not included)... Normal [facility] COMPREHENSIVE METABOLIC PANE Néstor 04-16-2021 Albumin [Mass/Vol] 4.5 g/dL Normal 3.6-5.1 [facility] Comment on above: Performed By: #### 4 96, 08349, 7930 #### [facility] of [address], [address] [place], [place] [id number] Supervisor Finishing Room: Ck Wallis MD Albumin/Globulin [Mass ratio] 1.7 {ratio} Normal 1.0-2.5 [facility] Comment on above: Performed By: #### 4 96, 67972, 1160 #### [facility] of [address], [address] [place], [place] [id number] Supervisor Finishing Room: Ck Wallis MD ALP [Catalytic activity/Vol] 41 U/L Normal 35-144 [facility] Comment on above: Performed By: #### 4 96, 68902, 6380 #### [facility] [address], [address] [place], [place] [id number] Supervisor Finishing Room: Ck Wallis MD ALT [Catalytic activity/Vol] 37 U/L Normal 9-46 [facility] Comment on above: Performed By: #### 4 96, 80700, 7600 #### [facility] of [address] [address] Supervisor Finishing Room: Ck Wallis MD AST [Catalytic activity/Vol] 20 U/L Normal 10-35 [facility] Comment on above: Performed By: #### 4 96, 18252, 7600 #### [facility] of [address], [address] [place] [address] Supervisor Finishing Room: Ck Wallis MD Bilirubin [Mass/Vol] 0.5 mg/dL Normal 0.2-1.2 [facility] Comment on above: Performed By: #### 4 96, 46053, 7600 #### [facility] of [address] [address] Supervisor Finishing Room: Ck Wallis MD BUN/CREATININE RATIO NOT APPLICABLE Normal 6-22 [facility] Comment on above: Performed By: #### 4 96, 28946, 0 #### [facility] of [address] [address] Supervisor Finishing Room: Ck Wallis MD Calcium [Mass/Vol] 9.6 mg/dL Normal 8.6-10.3 [facility] Comment on above: Performed By: #### 4 96, 82311, 7600 #### [facility] of [address] [address] Supervisor Finishing Room: Ck Wallis MD Chloride [Moles/Vol] 100 mmol/L Normal 98-110 [facility] Comment on above: Performed By: #### 4 96, 30852, 7600 #### [facility] of [address] [address] Supervisor Finishing Room: Ck Wallis MD CO2 [Moles/Vol] 31 mmol/L Normal 20-32 [facility] Comment on above: Performed By: #### 4 96, 19827, 7600 #### [facility] of [place] [address] Supervisor Finishing Room: Ck Wallis MD Creatinine [Mass/Vol] 1.07 mg/dL Normal 0.70-1.25 [facility] Comment on above: Result Comment: For patients >49 years of age, the reference limit for Creatinine is approximately 13% higher for people identified as -Surinamese. Performed By: #### 4 96, 50177, 7600 #### [facility] [address] [address] Supervisor Finishing Room: Ck Wallis MD eGFR NON-AFR. GIBRALTARIAN 73 mL/min/1.73m2 Normal > OR = 60 [facility] Comment on above: Performed By: #### 4 96, 12370, 0 #### [facility] [address] [address] Supervisor Finishing Room: Ck Wallis MD GFR/1.73 sq M.predicted among blacks MDRD (S/P/Bld) [Vol rate/Area] 85 mL/min/{1.73_m2} Normal > OR = 60 [facility] Comment on above: Performed By: #### 4 96, 48610, 0 #### [facility] [address] [address] Supervisor Finishing Room: Ck Wallis MD Globulin (S) [Mass/Vol] 2.6 g/dL Normal 1.9-3.7 [facility] Comment on above: Performed By: #### 4 96, 48676, 0 #### [facility] [address] [address] Supervisor Finishing Room: Ck Wallis MD Glucose [Mass/Vol] 139 mg/dL High 65-99 [facility] Comment on above: Result Comment: Fasting reference interval For someone without known diabetes, a glucose value >125 mg/dL indicates that they may have diabetes and this should be confirmed with a follow-up test. Performed By: #### 4 96, 63547, 7600 #### [facility] [address] [address] Supervisor Finishing Room: Ck Wallis MD Potassium [Moles/Vol] 4.2 mmol/L Normal 3.5-5.3 [facility] Comment on above: Performed By: #### 4 96, 94095, 7600 #### [facility] [address], [address] [place] [address] Supervisor Finishing Room: Ck Wallis MD Protein [Mass/Vol] 7.1 g/dL Normal 6.1-8.1 [facility] Comment on above: Performed By: #### 4 96, 73741, 7600 #### [facility] [address], [address] [place] [address] Supervisor Finishing Room: Ck Wallis MD Sodium [Moles/Vol] 138 mmol/L Normal 135-146 [facility] Comment on above: Performed By: #### 4 96, 06969, 7600 #### [facility] [address], [address] [place] [address] Supervisor Finishing Room: Ck Wallis MD Urea nitrogen [Mass/Vol] 22 mg/dL Normal 7-25 [facility] Comment on above: Performed By: #### 4 96, 03165, 7600 #### [facility] [address] [address] Supervisor Finishing Room: Ck Wallis MD HEMOGLOBIN A1con 04-16-2021 HEMOGLOBIN A1c 6.9 % of total Hgb High <5.7 [facility] Comment on above: Result Comment: For someone without known diabetes, a hemoglobin A1c value of 6.5% or greater indicates that they may have diabetes and this should be confirmed with a follow-up test. For someone with known diabetes, a value <7% indicates that their diabetes is well controlled and a value greater than or equal to 7% indicates suboptimal control. A1c targets should be individualized based on duration of diabetes, age, comorbid conditions, and other considerations. Currently, no consensus exists regarding use of hemoglobin A1c for diagnosis of diabetes for children. Performed By: #### 4 96, 45706, 7600 #### [facility] [address], [address] [place] [address] Supervisor Finishing Room: Ck Wallis MD LIPID PANEL, [facility] 08 Cholesterol [Mass/Vol] 239 mg/dL High <200 [facility] Comment on above: Order Comment: FASTI NG:YES FASTING: YES Performed By: #### 4 96, 7600, 13452 #### [facility] [address], [address] [place] [address] Supervisor Finishing Room: Ck Wallis MD Cholesterol in HDL [Mass/Vol] 45 mg/dL Normal > OR = 40 [facility] Comment on above: Order Comment: FASTI NG:YES FASTING: YES Performed By: #### 4 96, 7600, 98467 #### [facility] [address], [address] [place] [address] Supervisor Finishing Room: Ck Wallis MD Cholesterol in LDL [Mass/Vol] 148 mg/dL High [facility] Comment on above: Order Comment: FASTI NG:YES FASTING: YES Result Comment: Refe rence range: <100 Desirable range <100 mg/dL for primary prevention; <70 mg/dL for patients with CHD or diabetic patients with > or = 2 CHD risk factors. LDL-C is now calculated using the Nathan-Diego calculation, which is a validated novel method providing better accuracy than the Friedewald equation in the estimation of LDL-C. Nathan SS et al. KETTY. 2013;310(19): 1854-9045 (http://education.[employer]/faq/DQR422) Performed By: #### 4 96, 0, 59929 #### [facility] [address], [address] [place] [address] Supervisor Finishing Room: Ck Wallis MD Cholesterol.total/ Cholesterol in HDL [Mass ratio] 5.3 {ratio} High <5.0 [facility] Comment on above: Order Comment: FASTI NG:YES FASTING: YES Performed By: #### 4 96, 7600, 37407 #### [facility] [address], [address] [place] [address] Supervisor Finishing Room: Ck Wallis MD NON HDL CHOLESTEROL 194 mg/dL (calc) High <130 [facility] Comment on above: Order Comment: FASTI NG:YES FASTING: YES Result Comment: For patients with diabetes plus 1 major ASCVD risk factor, treating to a non-HDL-C goal of <100 mg/dL (LDL-C of <70 mg/dL) is considered a therapeutic option. Performed By: #### 4 96, 7600, 46800 #### [facility] [address], [address] [place] [address] Supervisor Finishing Room: Ck Wallis MD Triglyceride [Mass/Vol] 280 mg/dL High <150 [facility] Comment on above: Order Comment: FASTI NG:YES FASTING: YES Result Comment: If a non-fasting specimen was collected, consider repeat triglyceride testing on a fasting specimen if clinically indicated. Trever et al. J. of Clin. Lipidol. 2015;9:129-169. Performed By: #### 4 96, 7720, 35875 #### [facility] [address], [address] [place] [address] Supervisor Finishing Room: Ck Wallis MD [facility] SARS-CoV-2 (COVID-19) RNA JOSE+probe Ql (Unsp spec) Not detected Normal NOT DETECTED [facility] Comment on above: Result Comment: This test is not yet approved or cleared by the [place] FDA. When there are no FDA-approved or cleared tests available, and other criteria are met, FDA can make tests available under an emergency access mechanism called an Emergency Use Authorization (EUA). The EUA for this test is supported by the [place] of Health and Human Service's (HHS's) declaration that circumstances exist to justify the emergency use of in vitro diagnostics for the detection and/or diagnosis of the virus that causes COVID-19. This EUA will remain in effect (meaning this test can be used) for the duration of the COVID-19 declaration justifying emergency of IVDs, unless it is terminated or revoked by FDA (after which the test may no longer be used). When diagnostic testing is negative, the possibility of a false negative should be considered in the context of a patient's recent exposures and the presence of clinical signs and symptoms consistent with SARS-CoV-2. Performed By: #### C #### [facility] [address] [address] [address] Cary Malagon US HARVEY DOP LEG RTon 04-08-20 US HARVEY DOP LEG RT EXAMINATION: US HARVEY DOP LEG RT HISTORY: Chronic deep venous thrombosis of lower extremity COMPARISON: Ultrasound venous Doppler leg bilateral 01/03/2021 FINDINGS: REGION: Right leg THROMBI: None. COMPRESSIBILITY: Normal compressibility. FLOW: Normal waveform and antegrade flow between 5 and 20 cm/s. OTHER: None. IMPRESSION: 1. No deep vein thrombus within the right lower extremity. 2. Clearing of previously seen nonocclusive thrombus within the right popliteal vein. Electronically authenticated by: IAN FU Date: 2021-04-08 10:22 Normal [facility] CNTHERAPYon 03-23-2021 CNTHERAPY OT/PT/Speech Visit ([facility]) -------- [facility] ([id number]) 1955 [facility] Provider Department 03/23/21 8:15 [facility] Provider Department Center 03/23/2021 8:15 AM [id number], [facility] AZRA BRIAN Reason for Visit: Speech Progress Note [3487] Speech Discharge [3488] Primary Visit Diagnosis:Cognitive communication deficit [R41.841] Other Visit Diagnoses:Memory loss [R41.3] MCI (mild cognitive impairment) [G31.84] Allergies As of Date: 03/23/2021 (No Known Allergies) Date Reviewed: 03/01/2021 Reviewed by: Derrick Mascorro - Fully Assessed Prescriptions as of 06/24/2021 - aspirin, enteric coated (ECOTRIN LOW STRENGTH) 81 mg EC tablet Take 1 tablet by mouth twice daily. - pantoprazole DR (PROTONIX) 20 mg tablet Take 1 tablet by mouth once daily for 14 days. - semaglutide (OZEMPIC SUBCUTANEOUS) Inject 1 Dose subcutaneously one time a week. 50 mg weekly - labetalol (TRANDATE) 200 mg tablet Take 200 mg by mouth twice daily. - MEDICATION, NON-DATABASE supplements - mupirocin (BACTROBAN) 2 % ointment Apply 0.5 inch with cotton swab (Q-tip) to each nostril in the morning and evening for 5 days prior to and including day of surgery. - VRAYLAR 6 mg cap Take 1.5 mg by mouth. - chlorthalidone (HYGROTON) 25 mg tablet chlorthalidone 25 mg tablet - hydrOXYzine pamoate (VISTARIL) 25 mg capsule Take 50 mg by mouth at bedtime as needed. - lamoTRIgine (LAMICTAL) 200 mg tablet TAKE 1 TABLET BY MOUTH EVERYDAY AT BEDTIME - VIIBRYD 40 mg TAKE 1 TABLET BY MOUTH EVERY DAY IN THE MORNING - cloNIDine HCl (CATAPRES) 0.1 mg tablet clonidine HCl 0.1 mg tablet TAKE 1 TABLET BY MOUTH THREE TIMES A DAY - amLODIPine (NORVASC) 10 mg tablet Take 10 mg by mouth. - metFORMIN (GLUCOPHAGE) 500 mg tablet Take 500 mg by mouth twice daily with meals. - busPIRone (BUSPAR) 10 mg tablet Take 20 mg by mouth three times daily. Meds Comments as of 05/27/2018: Nifedipine started NIov 07-29 [facility] 05/27/18 Takes Latuda, Remeron, Trintellix, and BP meds (recalls Bistolic, does not have bottles with him).Elizabeth Blas RN Progress Notes: MICK Flanagan 03/23/2021 9:35 AM Signed Episode Visit Count: 3 Therapist That Will Oversee The Plan Of Care: Dorothy Benoit Start of Care Date: 02/15/21 Onset Date: 01/24/21 Plan of Care Certification Date: 02/15/21 Next Certification Due Date: 05/16/21 Patient Identified by Name and Date of : Yes [facility] SPEECH THERAPY PROGRESS REPORT PLAN OF CARE UPDATE: Impression: Communication deficits identified: Cognitive deficits Progress Toward Goals: Progressing as expected Functional gains: Increased use of compensatory strategies and Improving skill related to the implementation of the taught home exercise program Goals for Episode of Care Updated: 03/23/2021 Goals for Episode of Care: created on 02/15/2021 through 05/16/21 COGNITIVE GOALS Improve money and time management tasks with 95% accuracy given minimal assist. CURRENT: 100% per simple tasks. NOT MET. Continue goal. Improve functional, immediate and short term/prospective memory to 95% accuracy with use of compensatory strategies with minimal assist/cues. CURRENT: Memory using grouping: Immediate recall of 12 items (90%), Delayed recall of 12 items (100%) with reorganizing the groups and additional rehearsal. Memory using association: Immediate recall of 5-10 word pairs (100%). Working memory per 4 word sentences into abc, reverse and progressive order: 75% slow responding. Provided moderate verbal cues. NOT MET. Continue goal. All goals to target the patient's overall ability to facilitate functional cognitive linguistic skills. *Assess problem solving/reasoning, add goals as appropriate, next session* CURRENT: 90%. MET. Discontinue goal. 02/15/2021 FCM Memory Level: 5 FCM Problem Solving Level: 5 03/23/2021 FCM Memory Level: 5 FCM Problem Solving Level: 5 Assessment per [facility] Functional Communication Measure and treatment recommendations: Memory: LEVEL 5: The individual consistently requires minimal cues to recall or use external memory aids for complex and novel information. The individual consistently requires cues to plan and follow through on complex future events (e.g., menu planning and meal preparation, planning a democrat, etc.). Problem Solving: LEVEL 5: The individual demonstrates functional problem solving skills in routine daily activities. He/she rarely requires minimal cueing/assistance or additional time to recognize problems, identify various solutions and carry out steps to complete simple problem solving tasks. The individual usually requires moderate cues/assistance to identify salient features of complex problems and occasionally provides appropriate solut (more content not included)... Normal [facility] Evangelina 03-04-2021 MATILDA Telephone (ORTHIN) -------- TOM KHAN ([id number]) 1955 M [facility] Date Time Provider Department 03/04/21 TIMA SOTO During your visit today, we recorded the following information about you: Yaneth Mendez RN 03/04/2021 9:07 AM Signed Spoke with patient notifying him that would like patient to have repeat labs taken in 6 weeks. Allergies As of Date: 03/04/2021 (No Known Allergies) Date Reviewed: 03/01/2021 Reviewed by: Derrick Mascorro - Fully Assessed Reason for Visit: Results [95] Prescriptions as of 03/04/2021 - aspirin, enteric coated (ECOTRIN LOW STRENGTH) 81 mg EC tablet Take 1 tablet by mouth twice daily. - pantoprazole DR (PROTONIX) 20 mg tablet Take 1 tablet by mouth once daily for 14 days. - semaglutide (OZEMPIC SUBCUTANEOUS) Inject 1 Dose subcutaneously one time a week. 50 mg weekly - labetalol (TRANDATE) 200 mg tablet Take 200 mg by mouth twice daily. - MEDICATION, NON-DATABASE supplements - mupirocin (BACTROBAN) 2 % ointment Apply 0.5 inch with cotton swab (Q-tip) to each nostril in the morning and evening for 5 days prior to and including day of surgery. - VRAYLAR 6 mg cap Take 1.5 mg by mouth. - chlorthalidone (HYGROTON) 25 mg tablet chlorthalidone 25 mg tablet - hydrOXYzine pamoate (VISTARIL) 25 mg capsule Take 50 mg by mouth at bedtime as needed. - lamoTRIgine (LAMICTAL) 200 mg tablet TAKE 1 TABLET BY MOUTH EVERYDAY AT BEDTIME - VIIBRYD 40 mg TAKE 1 TABLET BY MOUTH EVERY DAY IN THE MORNING - cloNIDine HCl (CATAPRES) 0.1 mg tablet clonidine HCl 0.1 mg tablet TAKE 1 TABLET BY MOUTH THREE TIMES A DAY - amLODIPine (NORVASC) 10 mg tablet Take 10 mg by mouth. - metFORMIN (GLUCOPHAGE) 500 mg tablet Take 500 mg by mouth twice daily with meals. - busPIRone (BUSPAR) 10 mg tablet Take 20 mg by mouth three times daily. Meds Comments as of 05/27/2018: Nifedipine started NIov 07-29 [facility] 05/27/18 Takes Latuda, Remeron, Trintellix, and BP meds (recalls Bistolic, does not have bottles with him).Elizabeth Blas, SAMUEL Problem List As Of Date 03/04/2021 Noted Resolved DM w/o complication type II [E11.9] 07/09/2006 06/28/2011 SENILE NUCLEAR CATARACT [H25.10] 07/09/2006 Mixed hyperlipidemia [E78.2] 07/09/2006 06/28/2011 Anxiety state [F41.1] 07/09/2006 Fluid overload [276.6] 10/10/2008 06/28/2011 Hypotension, unspecified [I95.9] 10/10/2008 06/28/2011 Coronary atherosclerosis [I25.10] 10/21/2008 Other states following surgery of eye and adnex*05/05/2011 Pseudophakia [Z96.1] 05/05/2011 Senile cataract, unspecified [H25.9] 05/05/2011 Hypertension [I10] 06/28/2011 Hyperlipidemia [E78.5] 06/28/2011 S/P CABG (coronary artery bypass graft) [Z95.1] 06/28/2011 Prediabetes [R73.03] 06/28/2011 Depression [F32.9] 06/28/2011 Vitamin D deficiency [E55.9] 06/28/2011 Fatigue [R53.83] 06/28/2011 Family history of ischemic heart disease [Z82.4*06/28/2011 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] 11/07/2012 Chronic cough [R05] 11/07/2012 Esophageal stricture [K22.2] 11/07/2012 Heartburn symptom [R12] 11/07/2012 Rotator cuff injury [S46.009A] 02/14/2013 Skin tag [L91.8] 01/29/2015 Dyspnea, unspecified [R06.00] 08/01/2016 Cataract, nuclear sclerotic senile, right [H25.*08/14/2018 Unspecified sleep apnea [G47.30] 10/2008 Primary osteoarthritis of right knee [M17.11] PONV (postoperative nausea and vomiting) [R11.2*04/12/2020 04/13/2020 S/P total knee arthroplasty, right [Z96.651] 04/12/2020 Obesity, Class II, BMI 35-39.9 [E66.9] 04/13/2020 MCI (mild cognitive impairment) [G31.84] 02/25/2021 Encounter Status:Closed by YANETH MENDEZ on 03/04/21 Normal [facility] C-Reactive Proteinon 021 C-Reactive Protein 1.2 mg/dL High <0.9 [facility] Comment on above: Performed By: #### W SR, CRP #### [facility] [address] [place], [place] [address] CNOVon 03-01-2021 CNOV Office Visit (ORTHMN ) -------- TOM KHAN ([id number]) 1955 M [facility] Date Time Provider Department 03/01/21 1:00 PM TIMA SOTO During your visit today, we recorded the following information about you: Tima Soto MD 03/01/2021 4:35 PM Signed Ortho Knee Follow Up Note Narrative Referring Provider: Tima Soto [address] [facility] [address] PCP: Tom Paniagua, DO ==== IMPRESSION/PLAN: Sed rate/crp ==== 65 year old s/p Right Total Knee Replacement completed on 04-12-20. He is complaining of some right knee stiffness, aching and lower extremity edema for the last 2 months. Of note in January he was diagnosed with right lower extremity cellulites and was given a course of abx. He was also recently diagnosed with RLE DVT. IMPRESSION: R/O PJI - esr and crp I think a lot of current sx's of swelling are obviously related to his dvt. His knee loos benign but need r/o PJI. if APR are elevtaed will aspirate his knee R knee with well heaeled incision, no erythema or cherie effusion, 0-125, stable lower leg swelling no cellulitis Imagin. Implants are well aligned. Implants are well fixed. There is no evidence of loosening. Provider: Tima Soto MD Completed by: Yaneth Mendez RN I personally evaluated this patient and agree with the note from the nurse/resident/fellow including PMH, PSH, SH, meds, allergies, and review of systems. I completed the HPI and performed the physical exam. Additionally I reviewed available imaging and wrote my interpretation. I wrote the Assessment and Plan. Referring Provider: TIMA SOTO [[id number]] Allergies As of Date: 03/01/2021 (No Known Allergies) Date Reviewed: 03/01/2021 Reviewed by: Derrick Mascorro - Fully Assessed Reason for Visit: Established Patient [175] Primary Visit Diagnosis:S/P total knee replacement, right [Z96.651] Order(s):SED RATE WESTERGREN [SQWSR] Order #: [id number] FUTURE C-REACTIVE PROTEIN (CRP) [SQCRP] Order #: [id number] FUTURE Prescriptions as of 03/01/2021 Sig: ASPIRIN 81 MG TABLET,DELAYED * Take 1 tablet by mouth twice * PANTOPRAZOLE 20 MG TABLET,DEL* Take 1 tablet by mouth once d* OZEMPIC SUBCUTANEOUS Inject 1 Dose subcutaneously * LABETALOL 200 MG TABLET Take 200 mg by mouth twice da* MEDICATION, NON-DATABASE supplements MUPIROCIN 2 % TOPICAL OINTMENT Apply 0.5 inch with cotton sw* VRAYLAR 6 MG CAPSULE Take 1.5 mg by mouth. CHLORTHALIDONE 25 MG TABLET chlorthalidone 25 mg tablet HYDROXYZINE PAMOATE 25 MG CAP* Take 50 mg by mouth at bedtim* LAMOTRIGINE 200 MG TABLET TAKE 1 TABLET BY MOUTH EVERYD* VIIBRYD 40 MG TABLET TAKE 1 TABLET BY MOUTH EVERY * CLONIDINE HCL 0.1 MG TABLET clonidine HCl 0.1 mg tablet * AMLODIPINE 10 MG TABLET Take 10 mg by mouth. METFORMIN 500 MG TABLET Take 500 mg by mouth twice da* BUSPIRONE 10 MG TABLET Take 20 mg by mouth three bassem* Problem List As Of Date 03/01/2021 Noted Resolved DM w/o complication type II [E11.9] 07/09/2006 06/28/2011 SENILE NUCLEAR CATARACT [H25.10] 07/09/2006 Mixed hyperlipidemia [E78.2] 07/09/2006 06/28/2011 Anxiety state [F41.1] 07/09/2006 Fluid overload [276.6] 10/10/2008 06/28/2011 Hypotension, unspecified [I95.9] 10/10/2008 06/28/2011 Coronary atherosclerosis [I25.10] 10/21/2008 Other states following surgery of eye and adnex*05/05/2011 Pseudophakia [Z96.1] 05/05/2011 Senile cataract, unspecified [H25.9] 05/05/2011 Hypertension [I10] 06/28/2011 Hyperlipidemia [E78.5] 06/28/2011 S/P CABG (coronary artery bypass graft) [Z95.1] 06/28/2011 Prediabetes [R73.03] 06/28/2011 Depression [F32.9] 06/28/2011 Vitamin D deficiency [E55.9] 06/28/2011 Fatigue [R53.83] 06/28/2011 Family history of ischemic heart disease [Z82.4*06/28/2011 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] 11/07/2012 Chronic cough [R05] 11/07/2012 Esophageal stricture [K22.2] 11/07/2012 Heartburn symptom [R12] 11/07/2012 Rotator cuff injury [S46.009A] 02/14/2013 Skin tag [L91.8] 01/29/2015 Dyspnea, unspecified [R06.00] 08/01/2016 Cataract, nuclear sclerotic senile, right [H25.*08/14/2018 Unspecified sleep apnea [G47.30] 10/2008 Primary osteoarthritis of right knee [M17.11] PONV (postoperative nausea and vomiting) [R11.2*04/12/2020 04/13/2020 S/P total knee arthroplasty, right [Z96.651] 04/12/2020 Obesity, Class II, BMI 35-39.9 [E66.9] 04/13/2020 MCI (mild cognitive impairment) [G31.84] 02/25/2021 Encounter Status:Closed by TIMA SOTO on 03/01/21 Normal [facility] Sed Rate Westergrenon 2020 Sed Rate Westergren 17 mm/hr High 0-15 [facility] Comment on above: Performed By: #### W SR, CRP #### [facility] [address] [place] [id number] XR KNEE 3V AP/LAT/MERCHANT R Ton 03-01-2021 XR KNEE 3V AP/LAT/MERCHANT RT * * *Final Report* * * DATE OF EXAM: Mar 01 2021 12:43PM AOX 5209 - XR KNEE 3V AP/LAT/MERCHANT RT / PROCEDURE REASON: S/P total knee replacement, right * * * * Physician Interpretation * * * * HISTORY: S/P total knee replacement, right . post op films TECHNIQUE: XR KNEE 3V AP/LAT/MERCHANT RT Laterality: RIGHT Views: 3 COMPARISON: 05/20/2020 RESULT: Status post total knee arthroplasty. No evidence of implant failure. No other significant abnormality. IMPRESSION: EXPECTED POSTOPERATIVE APPEARANCE Inside Finisher: ISADORA Transcribe Date/Time: Mar 01 2021 4:12P Dictated by : MICHELLE REYES MD This examination was interpreted and the report reviewed and electronically signed by: MICHELLE REYES MD on Mar 01 2021 4:12PM EST [id number] [facility] CNTHERAPYon 02-25-2021 CNTHERAPY OT/PT/Speech Visit (SPAVTC) -------- BILLTOM ([id number]) 1955 M [facility] Date Time Provider Department 02/25/21 9:30 [facility] Provider Department Center 02/25/2021 9:30 AM [id number], [facility] AZRA BRIAN Reason for Visit: Speech Therapy [3489] Primary Visit Diagnosis:MCI (mild cognitive impairment) [G31.84] Allergies As of Date: 02/25/2021 (No Known Allergies) Date Reviewed: 06/23/2020 Reviewed by: Lynette Myers LPN - Fully Assessed Prescriptions as of 02/25/2021 Sig: ASPIRIN 81 MG TABLET,DELAYED * Take 1 tablet by mouth twice * PANTOPRAZOLE 20 MG TABLET,DEL* Take 1 tablet by mouth once d* OZEMPIC SUBCUTANEOUS Inject 1 Dose subcutaneously * LABETALOL 200 MG TABLET Take 200 mg by mouth twice da* MEDICATION, NON-DATABASE supplements MUPIROCIN 2 % TOPICAL OINTMENT Apply 0.5 inch with cotton sw* VRAYLAR 6 MG CAPSULE Take 1.5 mg by mouth. CHLORTHALIDONE 25 MG TABLET chlorthalidone 25 mg tablet HYDROXYZINE PAMOATE 25 MG CAP* Take 50 mg by mouth at bedtim* LAMOTRIGINE 200 MG TABLET TAKE 1 TABLET BY MOUTH EVERYD* VIIBRYD 40 MG TABLET TAKE 1 TABLET BY MOUTH EVERY * CLONIDINE HCL 0.1 MG TABLET clonidine HCl 0.1 mg tablet * AMLODIPINE 10 MG TABLET Take 10 mg by mouth. METFORMIN 500 MG TABLET Take 500 mg by mouth twice da* BUSPIRONE 10 MG TABLET Take 20 mg by mouth three bassem* Progress Notes: Rudolph Ambrocio, PAPERHANGER 02/25/2021 12:06 PM Signed Episode Visit Count: 2 Therapist That Will Oversee The Plan Of Care: Dorothy Benoit Start of Care Date: 02/15/21 Onset Date: 01/24/21 Plan of Care Certification Date: 02/15/21 Next Certification Due Date: 05/16/21 Patient Identified by Name and Date of : Yes [facility] SPEECH THERAPY TREATMENT NOTE IMPRESSION: Communication deficits identified: Cognitive deficits Results and Recommendations Discussed With: Patient PLAN: Continue speech therapy plan of care addressing cognitive skills/goals in therapy and HEP. PLAN FOR NEXT VISIT: memory, working memory, time/money management SUBJECTIVE: Patient is reporting that he is ready to start therapy. Patient reported that he has trouble with short-term memory. OBJECTIVE: MEASURES WITH LEVEL OF FUNCTION: Professional training and skilled instructions were provided as follows: Cognitive-linguistic skills Problem solving/reasoning assessed. 90% Working Memory per 3 and 4 items into reverse: 80-90%, abc order: 75% Time management/problem solvin% Memory using grouping strategy: Immediate recall of 6 items (100%), delayed recall after 5 minutes (100%) TREATMENT: Speech/Language Therapy (07316): Skilled Intervention: Educated and instructed patient on compensatory strategies for daily problem solving scenarios and simple reasoning Educated and instructed patient on memory recall strategies such as active repetition and chunking. Provided verbal cues in auditory / verbal memory tasks. Provided and instructed patient per home exercise program. Current Home Program: memory using grouping, working memory per reverse/abc order, time problem solving Billing: Speech Treatment (20025) Total time / Length of visit: 45 minutes MICK Flanagan -------- [facility] CNTHERAPYon 02-15-2021 CNTHERAPY OT/PT/Speech Visit (SPAVTC) -------- TOM KHAN ([id number]) 1955 [facility] Date Time Provider Department 02/15/21 9:30 AM DOROTHY BENOIT Date Time Provider Department Center 02/15/2021 9:30 AM [id number] BENOIT [facility] AZRA BRIAN Reason for Visit: Speech Evaluation [1637] Visit Diagnosis:MCI (mild cognitive impairment) [G31.84] Allergies As of Date: 02/15/2021 (No Known Allergies) Date Reviewed: 06/23/2020 Reviewed by: Lynette Myers LPN - Fully Assessed Prescriptions as of 02/15/2021 Sig: ASPIRIN 81 MG TABLET,DELAYED * Take 1 tablet by mouth twice * PANTOPRAZOLE 20 MG TABLET,DEL* Take 1 tablet by mouth once d* OZEMPIC SUBCUTANEOUS Inject 1 Dose subcutaneously * LABETALOL 200 MG TABLET Take 200 mg by mouth twice da* MEDICATION, NON-DATABASE supplements MUPIROCIN 2 % TOPICAL OINTMENT Apply 0.5 inch with cotton sw* VRAYLAR 6 MG CAPSULE Take 1.5 mg by mouth. CHLORTHALIDONE 25 MG TABLET chlorthalidone 25 mg tablet HYDROXYZINE PAMOATE 25 MG CAP* Take 50 mg by mouth at bedtim* LAMOTRIGINE 200 MG TABLET TAKE 1 TABLET BY MOUTH EVERYD* VIIBRYD 40 MG TABLET TAKE 1 TABLET BY MOUTH EVERY * CLONIDINE HCL 0.1 MG TABLET clonidine HCl 0.1 mg tablet * AMLODIPINE 10 MG TABLET Take 10 mg by mouth. METFORMIN 500 MG TABLET Take 500 mg by mouth twice da* BUSPIRONE 10 MG TABLET Take 20 mg by mouth three bassem* Progress Notes: MICK Shelton 02/15/2021 1:57 PM Signed Episode Visit Count: 1 Therapist That Will Oversee The Plan Of Care: Dorothy Benoit Start of Care Date: 02/15/21 Onset Date: 01/24/21 Plan of Care Certification Date: 02/15/21 Next Certification Due Date: 05/16/21 Patient Identified by Name and Date of : Yes [facility] COGNITIVE LINGUISTIC EVALUATION PLAN OF CARE: Impression: Functional communication without limitations in: Cognition Communication deficits identified: Cognitive deficits RECOMMENDATION: PAPERHANGER Recommendations: Outpatient Speech Therapy Results and Recommendations Discussed With: Patient Prognosis: Good Good: good support system/ coping skills FCM Memory Level: 5 FCM Problem Solving Level: 5 Assessment per [facility] Functional Communication Measure and treatment recommendations: Memory: LEVEL 5: The individual consistently requires minimal cues to recall or use external memory aids for complex and novel information. The individual consistently requires cues to plan and follow through on complex future events (e.g., menu planning and meal preparation, planning a democrat, etc.). Problem Solving: LEVEL 5: The individual demonstrates functional problem solving skills in routine daily activities. He/she rarely requires minimal cueing/assistance or additional time to recognize problems, identify various solutions and carry out steps to complete simple problem solving tasks. The individual usually requires moderate cues/assistance to identify salient features of complex problems and occasionally provides appropriate solutions. He/she usually needs additional time to complete complex problem solving tasks and occasionally self-monitors effectiveness of performance and uses strategies when encountering difficulty. Distant supervision may be required to complete complex problem solving tasks. Goals for Episode of Care: created on 02/15/2021 through 05/16/21 COGNITIVE GOALS Improve money and time management tasks with 95% accuracy given minimal assist. Improve functional, immediate and short term/prospective memory to 95% accuracy with use of compensatory strategies with minimal assist/cues. All goals to target the patient's overall ability to facilitate functional cognitive linguistic skills. *Assess problem solving/reasoning, add goals as appropriate, next session* Planned Interventions, Frequency, and Duration: Current Frequency: 1x every other week Duration: 12 weeks PLAN FOR NEXT VISIT: assess reasoning and problem solving Patient demonstrates good understanding of plan of care and treatment. The above goals and plan of care were discussed and agreed upon by patient/family. SUBJECTIVE: Tom Khan is a 65 year old male seen today for a diagnostic. 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 Patient states that he is diabetic and feels that may be contributing to his cognition. Patient had ST last year for cognition (only one session) d/t not processing information as well as he had like . Patient Goals: to try and get better and feeling better. 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 Normal [facility] PN-PSYCon 12-30-2020 PN-PSYC [facility] Name: TOM KHAN : 1955 Unit: [id number] Age: 65 Attending Physician: JASMINE CONNOLLY [facility] Pt Location: [facility] Date of Service: PROGRESS NOTE DATE OF EVALUATION: 12/30/2020 TOTAL TIME SPENT WITH THE PATIENT: 40 minutes. SUBJECTIVE: Tom is being seen today as part of his treatment in our GIOP program. His , Jaci, is present and did sit in on the entire appointment today. Both Tom and Jaci are able to identify significant improvement in Tom's emotional progress. There was consideration to discharge from the GIOP program today; however, they have chosen to have him come in this coming Sunday for at least one more day. Tom does report today that he still feels foggy ; however, he does feel that it is much improved from one month ago. I have met and treated Tom on numerous previous occasions and today he does seem the most relaxed, alert, less restless, and more easily able to engage in conversation than all previous times I have met him. He is able to report that his mood is a little bit better but that he still is struggling with finding his worth and purpose. 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 We did talk today about having the proper mindset that perhaps this was just not going to be a good fit for him but it did get him back into the interviewing process and he can use this as a step in the right direction and learn from this experience. Tom reports an increased appetite and weight gain. His weight is up 8 lbs in the last 6 weeks. We did discuss that this is likely due to the Abilify and he reports that his blood sugars have been in the 170's. He is under the care of Dr. Paniagua as his primary care physician and Jaci does voice concern that this doctor is not going to see any patients that are not fully vaccinated which, at this point, they are not choosing to do. They have both had COVID-19 so this travel writer did suggest calling to see if they could test positive for antibodies if the doctor would choose to see them and they are going to check on that. Tom reports that he is sleeping really well right now and he feels rested in the mornings. He is reporting that his ambition and motivation have improved but they are still not where he wants it to be. Both Tom and Jaci report that they are satisfied with his current medications and are not looking to make any adjustments. OBJECTIVE: Tom presents today well groomed and well nourished. He is calm and cooperative and significantly less restless than other times I have met with him. His speech is clear, coherent, and appropriate in rate, rhythm, and volume. He does not appear to be experiencing any psychomotor agitation today. He does present with some ruminating thoughts regarding the job interview that he felt went poorly and he did bring that up four times spontaneously during conversation today. His insight and judgement are low. Intelligence is average or above average. His cognition still remains somewhat impaired. He denies any suicidal thoughts. ASSESSMENT: 1. Major depressive disorder, recurrent, severe, without psychotic features. 2. Generalized anxiety disorder. 3. Pseudo dementia. 4. 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 TREATMENT PLAN RECOMMENDATIONS: There was discussion of Tom discharging this week from the GIOP program; however, he is requesting to come in one more day so he will come in on Sunday next week and hopefully will discharge after that. We are not going to make any changes to his medication and I did send in one month of refills of the following: Klonopin 0.5 mg one-half tablet twice a day, BuSpar 30 mg twice a day, Zoloft 50 mg daily, Abilify 10 mg daily, and Benztropine 1 mg twice a day. All were sent with a 30 day supply with 0 refills to [facility] in [place]. Tom is scheduled with Dr. Kalree Farfan in our outpatient department for February 01. He is also advised today to set up with his outpatient therapist, Apolinar Duron and they did verbalize a plan to call and schedule that. He is also going to follow with his primary care physician for his physical health. Tom did ask if he was able to decrease his blood pressure medication and I did advise him to discuss that with his primary care physician, Dr. Paniagua. Crisis planning is reviewed with Tom and Jaci and if he were to have any concerns (more content not included)... Normal [facility] PN-PSYCon 12-16-2020 PN-PSYC [facility] Name: TOM KHAN : 1955 Unit: [id number] Age: 65 Attending Physician: JASMINE CONNOLLY PMEILEEN- Pt Location: [facility] Date of Service: PROGRESS NOTE DATE SEEN: 12/16/2020 SUBJECTIVE: Mr. Tom Khan is a 65-year-old male that I'm treating in the IOP program in regards to diagnoses of major depressive disorder recurrent severe with history of psychotic features as well as comorbid anxiety disorder and presentation of pseudo dementia with adjustment disorder secondary to life change possibly having triggered this. He is doing better with medication adjustments and there is a note from yesterday's date with more details on my assessment with him and continued medication plan, but I am putting in the note to document a conversation I had with his , Jaci, as she did request that I call her about the medication changes that were made. I do talk to Jaci for about 20 minutes on the phone today to answer questions and explain treatment rationale and plan. She had concerns regarding Klonopin being used on a scheduled basis as a benzodiazepine. We did discuss her concerns which were the fact that it can be a habit-forming medication and also that in the past he has been on Ativan 1 mg on a regular basis which was stopped cold turkey when he was in the hospital unit and he had severe physical and mental health withdrawal and it was a bad situation. Jaci reports that she doesn't feel he had any side effects with it and I explained that the rationale was to try to have him on a lower dose that could help with anxiety right now while we make other adjustments that are safer long-term and then to switch to as needed dosing and hopeful discontinuation. We did talk about the idea that Klonopin can possibly be better as he did accept a job as long as his background check gets back for part-time at [employer] and he may be starting that next week. I would like him to be able to function there if he is able because this could possibly benefit his mood as well feeling more productive and doing something financially helpful as that has been a ruminating concern of his. Jaci reports that she is very comfortable with the plan once we talk about all of her concerns and I do answer her questions thoroughly. She is going to go ahead and help him observe and monitor his response with the Klonopin. I discussed with her what to watch for and what our intention is with treatment and so she will actually give us feedback when she is here next week because she is coming with Tom to [facility] next Sunday when he is here again for a conjoint and to also, as noted, give feedback of what she has seen. Jaci is very appreciative of the call and information and very comfortable with the plan. She is going to go ahead and fill his Klonopin and they are going to start it today at about 10 a.m. and the second dose around 5 p.m. as long as he has no sedation or significant side effects from it. As noted, they will give report as appropriate and they do know there are crisis resources available if they need that prior to Sunday when he is back for the program. There were no further questions. Electronically Signed by: GILLES FARFAN M.D. 12/24/20 1257 GILLES FARFAN M.D. Date Dict: 12/16/2030 [facility]ASMINE CONNOLLY [facility] Date trans: 12/16/2043 [facility] [id number] cc: Normal [facility] PN-PSYCon 12-15-2020 PN-PSYC [facility] Name: TOM KHAN : 1955 Unit: [id number] Age: 65 Attending Physician: JASMINE CONNOLLY [facility] Pt Location: [facility] Date of Service: PROGRESS NOTE DATE SEEN: 12/15/2020 SUBJECTIVE: Mr. Tom Khan is a 65-year-old male that I'm seeing as part of the geriatric IOP program for medication management checkup today. He's been in the program for about 3 weeks and we've been treating him for major depressive disorder, recurrent, severe, with psychotic features as well as generalized anxiety disorder and adjustment disorder that seemed to trigger the episode secondary to life change and work in particular. He also has been presenting with pseudo dementia secondary to the depression which also has presented in his past before and I have been able to review more of his documentation from neurology and it does seem similar to what he has presented to in the past when very depressed. Tom presents today friendly and appropriate. He is demonstrating minimal thought blocking and minimal rumination but he does continue to go back to the rumination of whether he should go back to work or not and feeling non-productive. He asks this question several times when he is in the program in group to other staff members as well as when he is with me for assessment each time I've seen him. He does have a hard time being redirected off that topic and being satisfied with the answer of getting stable first. He is very concerned with finances and getting back to work by his own admission but when I ask about his finances and if they are doing okay he does state that with disability income and supplementation from rental problems they are doing pretty well and have quite a bit in savings. Tom does seem to be doing better with the rumination over irrational anxieties, though, and he is improving but he also is quite flat still had having a hard time doing things and motivating himself to do anything for himself at home. He is still having difficulties with his as a result of that. Tom is not seen to be experiencing significant psychomotor agitation today which is an improvement from when I first saw him and spoke to him last week with the Dylan and he does take the Benztropine 1 mg twice a day. He reports that it does give him dry mouth but it is manageable and not too severe. Tom reports he feels he is improving and he feels he is doing better with depression and has some fleeting passive suicidal ideation but denies any suicidal thought or thoughts of self-harm. He does report, though, that his anxiety is still high and he mentions that it is because he is still worried about going back to work and finances, as noted, which he states several times in our assessment. OBJECTIVE: At the time of assessment, Tom appears well groomed and nourished. He presents calm and cooperative. His speech is clear of normal rate and rhythm. He doesn't appear to be experiencing any psychomotor agitation today. He is demonstrating some mild thought blocking but he is conversational and fairly organized. He had some rumination about specific anxieties which are somewhat irrational but no psychosis or delusional thought noted. He doesn't seem to be paranoid. Insight and judgement is still relatively low. Intelligence seems to be average. Memory is within normal limits. Cognition is somewhat impaired still. ASSESSMENT: Major depressive disorder, recurrent, severe, with psychotic features. Generalized anxiety disorder. 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 PLAN: At this time, I'm going to try Tom on Klonopin 0.5 mg scheduled twice a day as he had still quite a bit of anxiety and does much better when he takes Ativan but the Ativan makes him very tired. I do encourage him to get scheduled for now as long as it doesn't make him too tired and then we can move to as needed basis down the road. We are going to increase BuSpar as well to 30 mg twice a day and continue Zoloft at 50 mg nightly. We'll continue Abilify at 10 mg daily for now but consider increase now that he is tolerating that depending on how much response we get from the anxiety changes and medication today. He has responded very well to the Abilify but I want to keep the dose more minimal for tolerability reasons if possible. We will continue the Benztropine 1 mg twice a day. I do refill all of his medications as currently prescribed to [facility] in [place] for a 30- day supply but I also give him a prescription for Klonopin to start that and he is given a list of all the medication changes written out for him as well. He is agreeable to the changes and to come back on Sunday for GIOP to check in again and to call or use crisis resources as needed for any crisis in between. Electronically Signed by: JASMINE CONNOLLY MSN, [facility], [facility]- 12/16/20 0932 (more content not included)... [facility] JACQUIE-Shira 12-08-2020 PN-PSMADDISON [facility] Name: TOM KHAN : 1955 Unit: [id number] Age: 65 Attending Physician: JASMINE CONNOLLY [facility] Pt Location: [facility] Date of Service: PROGRESS NOTE DATE SEEN: 12/08/2020 SUBJECTIVE: Tom is a 65-year-old male who has started the GIOP program last week and is speaking to me over the phone today for checkup and medication management assessment and for refills. Tom was here for the GIOP program today and did participate appropriately but there was miscommunication in regards to the patient being seen in person and the patient did leave after the group was over. I did contact him to go over how he was doing over the phone. The patient does sound notably more spontaneous in speech today when I am speaking with him and there is significantly less thought blocking noted from when I saw him last week. He does still have some thought blocking that seems to be happening based on the pauses between his answers but it seems that he is more organized and also less fixated on what he was fixated about when I first started seeing him, most notably his job and getting back to work again. This was a somewhat irrational anxiety and fixation but he only mentions it one time today. 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 I do encourage him to have this conversation as I'm not sure she is aware that he has applied for the job or if she feels he is able to functionally do so. He is not having any crisis symptoms and he is, as noted, sounding a little more organized and appropriate. I do talk to him about medication adjustments and I will increase his Abilify and send a prescription for that today. He is agreeable to that as he was hoping the Abilify could possibly be increased as he does feel he is doing better but not like normal . He reports that the Benztropine sent last week did seem to help the symptoms of restlessness to some degree but he reports he is still having some. He did have a prescription for Ativan earlier this year given to him outpatient and I talked to him about using that medication which he has not used in quite awhile as he reports he did not use it unless he needed it and he put it away since his is worried about him taking it if he didn't need it due to it being a controlled substance. Positive reinforcement was given in this regard but I do explain to him that I think it could be helpful for now while we are adjusting medications to take a half to one tablet up to twice a day that could also help with restlessness or anxiety and benefit him as well. He is agreeable to this so he does write those directions down and sounds to be very understanding with it. He is going to use the supply that he has at home. He reports he has several in the bottle so he is going to use that supply as noted. I do need to send a refill of Abilify but he is going to continue on Zoloft 50 mg that he has and the Benztropine he has 1 mg twice a day. He is planning on going on a trip with his this weekend to [place] and is looking forward to that. He denies any new concerns or issues. He does report he feels he is getting better. OBJECTIVE: At the time of assessment over the phone for about 20 minutes, Tom is fairly conversational, organized, and appropriate. Thought blocking to a minimal degree is noted but it seems to be better than when I saw him last week in the office. He denies any thoughts of harm to himself or anybody else. He reports he is in an okay mood but his affect sounds blunted over the phone. His insight and judgement is fair at this time and seems slightly improved based on his ability to understand the directions I'm giving him and make appropriate statements back or questions back. His intelligence is difficult to assess but it seems as though it is within normal limits. Orientation is appropriate. Speech is fairly normal rate and rhythm. Answers are not disorganized or paranoid today and he only once asked about work. ASSESSMENT: 1. Major depressive disorder, recurrent, severe, with psychotic features. 2. Generalized anxiety disorder. 3. Adjustment disorder, rule out psychosis related to neurological conditions. PLAN: At this time, Tom is agreeable to increasing Abilify to 10 mg daily and he asks for me to send that to [facility] in [place] which I do for a 30-day supply. He will also take the Ativan one-half tablet to one tablet up to twice a day as needed for anxiety or restlessness for now and add that back into the combination as well as the Zoloft 50 mg daily will be continued and Benztropine 1 mg twice a day will be continued. He is agree (more content not included)... [facility] PSYCOH Willi 12-06-2020 PSYCOH P [facility] Name: TOM KHAN : 1955 Unit: [id number] Age: 65 Attending Physician: JASMINE CONNOLLY [facility] Pt Location: [facility] Date of Service: HISTORY DATE OF SERVICE: 12/01/2020 PRESENT ILLNESS: Mr. Tom Khan is a 65-year-old male whom was referred to the [facility] as he was presenting with significant symptomology and non-response to medications so it was determined that he would likely do better in a situation where he could be monitored more closely in regards to medication response as well as treatment potential and response to therapy. Mr. Khan has been in outpatient psychiatric services with [facility] for medication management and therapy services for about the past 3 months. He was originally in partial hospitalization after he was discharged from inpatient hospitalization with [facility] from 07/19/2020 to 07/22/2020. The partial hospitalization was referred for followup at that time and he has been seeing Karen Sotelo as well as Apolinar Duron for therapy since. He saw Karen for the partial hospitalization program when he was first admitted and was treated in regards to diagnoses of adjustment disorder with depression and anxiety as well as generalized anxiety disorder and social phobia as he was describing symptoms of depression from an objective perspective such as feeling as though he was having poor energy, poor ambition, motivation, daily anxiety to a moderate degree, having rumination about certain things that really were not rational and had consistent worry about, being fixated on certain things, and having a history of panic attacks. It was reported that he has no history noted of bipolar mood disorder that was able to be diagnosed at that time. When he was seen on the inpatient psychiatric unit he was there for 3 days as noted in July and was under the treatment of [facility]. At that time, Aissatou had admitted him to inpatient treatment due to reports of increased anxiety to the point that he was not being functional. He had reportedly been ruminating since 2019 over finances. He had been having a flat affect over eating, pacing often, having passive suicidal thoughts, and possibly having some internal stimuli although this was not verified. There was an incident at work where he became sick and did not feel safe so he left. It is reported that right before his admission in July to inpatient at [facility] he was admitted from [facility] just post-discharge from there. The diagnosis being used while he was inpatient at [facility] was major depressive disorder, recurrent, with a history of psychosis and generalized anxiety disorder. He has not really shown much progress in the outpatient setting since he has been seeing Apolinar and Karen and medications have been adjusted many times which were initially after partial hospitalization BuSpar, Abilify, Ativan, Viibryd, Lamictal, and trazodone with Remeron for sleep; however, he was taken off Abilify due to having some increased blood sugar levels after being on it and has wanted to stop it. It is notable, however, after review of outpatient documentation, that he recently also had been on steroid treatment at the same time which could have affected his glucose as well. He was last seen by Karen for followup on November 16 and at that appointment he was restarted on Abilify 2 mg daily and Zoloft had been decreased to 75 mg at bedtime which had been at 100 mg at bedtime prior. It was reported that he possibly did get worse since the adjustment of Zoloft and was not doing well without the Abilify on board. As noted, he was referred to the partial program for more intense treatment to see if this could help. When I see Tom for initial appointment in IOP today on December 01, he is presenting with significant thought-blocking as well as rumination, fixation on going back to work which with review of documentation is not an appropriate fixation right now considering he does not reportedly have any financial troubles according to his and he is not likely to go back to work anytime soon. Also, as soon as he says, When am I going to go back to work? then he negates that by saying, I'm probably not okay to go back to work am I? He reports to me today that he is feeling poor motivation and anxiety. He is having some bizarre answers that are not appropriate to the question posed and, as noted, thought-blocking is consistent throughout assessment. He also looks very restless and fidgety. He sometimes stands up during assessment and Karen told me that this is how he presented when she saw him as well. He denies any current suicidal thoughts or any thoughts of harm to anybody else, but when I ask him if he has ever had a history of thoughts of harm to anybody else he osei (more content not included)... Normal [facility] PN-PSYCon 08-24-2020 PN-PSYC [facility] Name: TOM KHAN : 1955 Unit: [id number] Age: 64 Attending Physician: KAREN SOTELO C.N.P., Pt Location: [facility] Date of Service: PROGRESS NOTE DATE: 08-24-2020 Total time spent with patient 20 minutes. SUBJECTIVE: Tom is being seen today as part of his treatment in our intensive outpatient program. He is planning on discharging today. He reports that he continues to feel that he is moving in the right direction but he does admit that at times he feels physiologically not okay . He reports that at times he experiences lethargy, muscle pain, inability to think clearly and will have chest pain where he feels like he can't take a full breath. He does report satisfaction in the medication changes that we have made so far. When he came to our program he reported that he felt overmedicated and felt that a lot of his medication was not working. I have felt each week as I've seen Tom in his appointments that he is moving in the right direction, thinking more clearly and less focused on his current life situation where he is not working. He does admit that the group setting has been helpful however he did lose his insurance coverage as of last week and has been having to agrawal pay and he states that he is unwilling to continue that at the current expense. He does plan on following up in our outpatient treatment with this provider for medication management and then he will also see Apolinar Duron as a therapist. He does have appointments with each of us set up for September. Last week Tom was supposed to decrease his Lamictal from 200 mg down to 150 mg. He states today that medication change was helpful. He went on to state that he did not picking supervisor the 150 mg because it was going to be $85 so he ended up just breaking the 200 mg tablets in half down to 100 mg and he has been on that over the past week. We had also decreased BuSpar at his request from 20 mg three times a day down to two times a day. He has stated that he does not really feel BuSpar has been helpful for him and wants to get rid of any medication that is not helpful. He is asking today to decrease the BuSpar down to 10 mg twice a day and I did agree to that change. He also asked if he could get rid of Viibryd however I did advise that I would like to keep the Viibryd at 40 mg and the Abilify at 5 mg for the next month as we continue to decrease his other medication. He does have Trazodone 50 mg and Ativan 1 mg both available as needed and he states that he has not really utilizing either of them. He does report that his sleep is pretty good and does state that he feels lethargy and fatigue a lot during the day as well. He is feeling more positive about his follow up here as he has reported in the past that he has not really felt that Dr. Figueroa, has been helpful to him lately. OBJECTIVE: Tom is oriented times three today. He is alert. He did make good eye contact. He is restless throughout the interview today. He is dressed appropriately for the situation. Grooming and hygiene are good. He does have a mask with him but each time I've seen him I have had to request that he put it on for the interview and he was compliant. His mood continues to be depressed but each week it has been less depressed compared to his previous session. He denies any suicidal thoughts. His thought process is organized and goal directed. He denies any perceptual abnormalities. His attention and focus are fair to good. His judgement is impaired. Insight into illness is poor to fair. TREATMENT, PLAN AND RECOMMENDATIONS: Tom will plan on discharging from the IOP program today. He does have follow up scheduled with Apolinar Duron for therapy on September 13 and then with this provider for medication management on September 24. Refills today will be sent in for Viibryd 40 mg and Abilify 5 mg and those medications will continue without change. He will decrease BuSpar from 20 mg twice daily to 10 mg twice daily and he states that he has enough on hand to do this. He will continue with Lamictal 100 mg and he reports that he has enough Lamictal 200 mg at home to do this. I did advise that if he gets down to the last 5 tablets that I would like him to break them down into a 50 mg dose and take that until they are completely gone. Medication dosing directions especially the changes were written down for him to take along and I did provide him my business card so I asked him to call the outpatient department if he has any problems or concerns prior to his September appointments. Crisis planning was again reviewed with Tom if he were to have any suicidal thoughts or thoughts about engaging in self-harm or any concerns about his safety in general he is to notify his , call 911 or present to an emergency department. Electronically Signed by: KAREN SOTELO C.N.P. 09/07/20 1055 (more content not included)... Normal [facility] PN-PSYCwyatt 08-17-2020 JACQUIE-SARAHYC [facility] Name: TOM KHAN : 1955 Unit: [id number] Age: 64 Attending Physician: KAREN SOTELO C.N.P. Pt Location: [facility] Date of Service: PROGRESS NOTE DATE SEEN: 08/17/20 TOTAL TIME SPENT WITH PATIENT: 20 minutes. SUBJECTIVE: Tom is being seen as part of his treatment in our intensive outpatient program. He is currently in his third week of participation in the program. He reports that he has seen some good days. He reports today that his biggest complaint is that he feels tired a lot and that he falls asleep easily. I did point out to him that he fell asleep during our session last week and he appeared surprised to hear that. He states that this past Sunday he fell asleep during a Bible study that he was participating in. He continues to state a desire to minimize medication and scale back as much as possible. We have already discontinued Zyprexa in favor of Abilify for him here and last week we discontinued Remeron. It was my hope that with the discontinuation of Remeron he would see improvement in his complaints of daytime tiredness. To me, he does seem more alert today and much more mentally sharp and again in building on his improvement from last week he is not so fixated on his questions regarding his job status. My suggestion for Tom today in aligning with his request to continue to minimize his medication would be to decrease his Lamictal from 200 mg daily to 150 mg daily. Tom does not have a diagnosis of bipolar disorder and he denies any time in the past of having that diagnosis so I have to believe the Lamictal which was just started at some point as an adjunctive medication for his depression. Tom reports that the BuSpar 20 mg three times a day does not seem to really do anything for him . I did let him know that I would be willing to decrease that to 20 mg twice a day and see how he does with that. Therefore, we will be decreasing two of his medications. I do believe the Abilify 5 mg dose that he is currently on is providing benefit for him. I am not interested in making any adjustments to that medication today. In addition, he will remain on Viibryd 40 mg daily. He does have trazodone 50 mg used prn for sleep and also Ativan 1 mg prn for anxiety. He states that he utilizes those medications very infrequently and states that each would be used even less than one time per week. Tom did lose his insurance coverage as of yesterday so for this week he is paying for the program [id number]. He has a conjoint scheduled with his this afternoon and he is hoping to discharge from the program later this week. At this point Tom is still not sure who he is going to follow up with. He has been under the care of Dr. Maldonado in the [place], [place] area but he is interested in finding a new provider. We have discussed the option of following up here or finding a psychiatric provider closer to his home in [place]. OBJECTIVE: Tom is oriented times three today and he is more alert than his last session. He did not fall asleep during today's interview. He is dressed appropriately for the situation. Grooming and hygiene are good. His eye contact is good today. Each week I have seen him he does present less depressed and less anxious. His mood is depressed but is improved from his previous two sessions. He denies any suicidal thoughts. His thought process is organized and more goal-oriented each time I have seen him. He denies any perceptual abnormalities. His attention and concentration are fair to good today. Judgment is impaired. Insight into illness is poor. TREATMENT PLAN AND RECOMMENDATIONS: We will decrease Lamictal from 200 mg twice a day to 150 mg twice a day. We will also decrease BuSpar from 20 mg three times a day to 20 mg twice a day. No change will be made to Abilify 5 mg daily or Viibryd 40 mg daily and he also will continue to use Ativan 1 mg and trazodone 50 mg on a prn basis. He will discharge from the program this week. He is instructed to notify our intensive outpatient program staff on his desire of where he will be following up, whether that will be here in our outpatient department or with a psychiatric provider in the [place], [place] area. Today refills were sent for the Lamictal 150 mg due to the dose change but no other refill is needed today. Electronically Signed by: KAREN SOTELO C.N.P. 08/19/20 1334 KAREN SOTELONMeenuPMeenu Date Dict: 08/17/20 1043 KAREN SOTELONSundar Date trans: 08/17/20 1152 [facility] [id number] cc: [facility] PN-PSYCon 08-10-2020 PN-PSYC [facility] Name: TOM KHAN : 1955 Unit: [id number] Age: 64 Attending Physician: KAREN SOTELO C.N.P. Pt Location: [facility] Date of Service: PROGRESS NOTE DATE OF EVALUATION: 08/10/2020 TOTAL TIME SPENT WITH PATIENT: 20 minutes. SUBJECTIVE: Tom is being seen today as part of his treatment in our intensive outpatient program. He is in his second week of participation in the program. He reports today that he feels he is making progress and benefiting from his time here. He states that it has helped process some things for him. He reports it has been helpful to talk about how he looks at being on SSDI. He feels that his session with Richie was very helpful in regards to that subject matter. The biggest change I am noticing today in my session with Tom comparing him to last week is that he was not as fixated on discussing where he is currently at in life. He does state that he was somewhat more able to stay on task of questions being asked of him which was an improvement from last week; however, Tom is noted to be very tired today. At one point, he did close his eyes and appeared to fall asleep for about 10 seconds before arousing and making eye contact again. He does state that his has thrown her back out and that he has been waiting on her hand and foot and that is taking a lot out of him. He adds that he did not sleep good last night. He states that driving in this morning was difficult for him. When he was evaluated last week, he did request to start minimizing his medication. The only changes that we made was to discontinue Zyprexa 5 mg in the morning and 10 mg at night and instead replace that with Abilify 2 mg daily in the morning. Today, Tom feels that he actually has noticed improvement initially with being on Abilify but in the last couple of days he feels that benefit has tapered off. My suggestion to him today was to go ahead and double the Abilify up to a 4 mg daily dose in the morning until those tablets are gone and then I will send in today a new prescription for Abilify 5 mg which he can start as soon as his 2 mg are gone. I did provide that in writing for him due to how tired he is this morning. We also mutually agreed to go ahead and stop the Remeron 15 mg at bedtime which is another request of his. He denies any concerns today about appetite changes due to the medicine adjustments we made last week. OBJECTIVE: Tom is oriented times three today and he is noted to be very drowsy during the session. He did appear to fall asleep for about 10-15 seconds at one point during the interview. He is dressed appropriate for the situation. Grooming and hygiene are good. Eye contact is fair. He is notably less anxious today in comparison to last week. Speech is soft and of normal rate and rhythm. He was easier to follow today throughout the interview as compared to last week. His mood remains depressed but less anxious. He is currently denying any suicidal thoughts. His thought process today is more organized. He denies any perceptual abnormalities. Attention and concentration are poor today. Judgement is impaired. Insight into his illness is poor to fair. IMPRESSION: 1. Adjustment disorder with mixed anxiety and depressed mood. 2. Generalized anxiety disorder. 3. Social phobia. TREATMENT PLAN RECOMMENDATIONS: Tom is planning to discharge the end of this week from our intensive outpatient program. He will lose his [employer] insurance on August 16. After seeing Tom this morning, I did speak with KIESHA Batista, and she is going to offer the option for him to remain in the program into next week but certainly that would mean that it would be self-pay because his insurance is running out on August 16. Tom states that he has an appointment this coming with his current treating psychiatrist, Dr. Maldonado, in the [facility]. Tom is not sure if he wants to attend or not because he is not sure if he plans to followup with Dr. Maldonado. My recommendation for him today was to attend the appointment and can certainly discuss whether or not he wants to continue treatment or change and followup here in our office. I did let him know that either option is available. At Tom's request today, we are going to discontinue Remeron 15 mg at bedtime. We are going to increase Abilify 2 mg to a 4 mg daily dose in the morning until those tablets are gone which will be about 10 more days and then he will fill a prescription I am sending in today for Abilify 5 mg daily in the morning. For now, no change will be made to BuSpar 20 mg three times a day, Lamictal 200 mg twice a day, Viibryd 40 mg daily, and trazodone 50 mg as needed. He also has Ativan 1 mg available as needed. Tom did request today refills for his medication as he states he is not sure what is available. I will send in a refill for BuSpar, Lamictal, and Viibryd. [facility] (more content not included)... [facility] PSYCOH Willi 08-03-2020 PSYCOH P [facility] Name: TOM KHAN : 1955 Unit: [id number] Age: 64 Attending Physician: [facility]ASMINE [facility] Pt Location: [facility] Date of Service: HISTORY DATE OF SERVICE: 08/02/2020 DATE OF EVALUATION: 08/03/2020 TOTAL TIME SPENT WITH PATIENT: 80 minutes. CHIEF COMPLAINT: I just want to get back to work to my old job, but I can't. PRESENT ILLNESS: Mr. Khan is a 64-year-old male being seen today for his initial evaluation for the intensive out-patient program in [facility]. He has recently been in-patient in our [facility] geriatric unit with an admission date of 07/19/2020 and discharge date of 07/22/2020. Tom reports his insisted that he come in for help because she does not feel he is where he needs to be. Prior to coming to the [facility] geriatric program he was actually at [facility] for twelve days. Tom reports he went in-patient there also because his insisted that he go in or not come home . He states while he was there he was put on Zyprexa, Remeron, and Ativan. However, he states he has been on Viibryd and Lamictal for about a year and a half. Tom is somewhat difficult to follow during the evaluation and was very fixated on questioning if and when he will be able to return to work. He is noted to be a somewhat poor historian and there was some inconsistency in the dates and facts that he shared during the appointment that did change somewhat each time he brought them up. 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 He then ended up pursuing Social Security disability and has been on that ever since. Tom stated probably nine to eleven times during the interview today that he wants to get off Social Security and return back to work but does not think anyone will hire him because of his break in employment. He does admit that he ruminates a lot about his current situation and also asked the question several times during the interview, I'm only 64, isn't that too young to be retired? He does not really feel that he is depressed. However, he rated his mood as 5/10 with 10 being the best mood possible. He reports his sleep is pretty decent despite having obstructive sleep apnea and using a CPAP machine. He is reporting very poor energy, poor ambition and motivation, and a moderate level of daily anxiety. He is also very worried about his finances. However, he also commented twice during the interview that their finances are adequate and he probably could remain retired and they would be okay. He is currently denying any suicidal thoughts. Tom reports anxiety is a moderate problem for him and is evidenced in his day to day life. He admits to overthinking and ruminating on a lot of things. He denies any history of panic attacks. He denies any personal diagnosis of bipolar disorder. He denies any bipolar disorder in his family. He denies any period of at least four days where he felt bulletproof, had no need for sleep, felt very outgoing, or had problems with overspending. He denies any diagnosis of obsessive-compulsive disorder in his past. He does report his thinks he has obsessive-compulsive disorder because he tends to have obsessive thoughts about things. However, he does not have any obsessive or compulsive behaviors or compulsive checking. Tom does describe currently having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 Oral 69 18 96 % ? ? 04/12/20 1320 ? 180.3 cm (5' 11 ) 124.7 kg (275 lb) 04/12/20 1308 133/72 ? ? 63 16 99 % ? ? Body mass index is 38.35 kg/m?. GENERAL: no distress LUNGS: Lungs clear to auscultation, Fair air entry. CARDIAC: normal S1 and S2; no rubs or gallops ABDOMEN: Abdomen soft, non-tender. BS normal. EXTREMETIES: Normal ankle DF Bilateral Problem List ACTIVE PROBLEM LIST Senile Nuclear Sclerosis Anxiety State Coronary Atherosclerosis Other States Following Surgery of Eye and Adnexa Pseudophakia Senile Cataract, Unspecified Hypertension Hyperlipidemia S/P Cabg (Coronary Artery Bypass Graft) Prediabetes Depression Vitamin D Deficiency Fatigue Family History of Ischemic Heart Disease Vocal Cord Granuloma Chronic Cough Esophageal Stricture Heartburn Symptom Rotator Cuff Injury Skin Tag Dyspnea, Unspecified Cataract, Nuclear Sclerotic Senile, Right Unspecified Sleep Apnea Primary Osteoarthritis of Right Knee Ponv (Postoperative Nausea and Vomiting) S/P Total Knee Arthroplasty, Right DATA: Diagnostic tests reviewed for today's visit: Most recent labs: CBC, Coags, BMP, Mg, Phos Recent Labs 04/13/20 0447 WBC 11.48* HB 11.6* HCT 35.6* PLT 226 NA 139 K 4.0 CHLOR 102 CO2 24 BUN 16 CREAT 1.08 GLUC 168* CA 8.4* Assessment/Plan: 1. Status post right TKR: Discussed with patient and his regarding plan of care. His feels that he is doing well at this time. Dizziness is resolved; Therapy to evaluate, plan is for discharge if cleared by therapy services. 2. Coronary artery disease, status post CABG: He is doing well without any significant recent symptoms. 3. Diabetes mellitus type 2, insulin-dependent: He will resume prehospital treatment after discharge. 4. Hypertension, essential: Blood pressure is stable with present management. 5. Anxiety and depression: Continue present management. SIGNATURE: Woo Sanchez MD DATE: April 13, 2020 TIME: 12:58 PM [facility] PROGRESSon 04-13-2020 PROGRESS HNO ID: [id number] Author: Kemal Calderón (Pa) Service: Orthopaedic Surgery Author Type: Physician Identity Management Developer Type: Progress Notes Filed: 04/13/2020 9:05 AM Note Text: ORTHOPAEDIC POSTOP PROGRESS NOTE SERVICE DATE: 04/13/2020 SERVICE TIME: 9:04 AM Subjective Patient states that they are comfortable Well Controlled knee(s) pain. Moderate incisional pain. Objective VITAL SIGNS: BP 126/73 Pulse 71 Temp 36.4 ?C (97.5 ?F) (Oral) Resp 18 Ht 180.3 cm (5' 11 ) Wt 124.7 kg (275 lb) SpO2 97% BMI 38.35 kg/m? INTAKE AND OUTPUT: Intake/Output Summary (Last 24 hours) at 04/13/2020 0904 Last data filed at 04/13/2020 0500 Gross per 24 hour Intake 2562.5 ml Output 3050 ml Net -487.5 ml PHYSICAL EXAMINATION: Right Lower Extremity: Dorsalis pedis pulses palpable. Dorsi flexion 4/5. Plantar flexion 4/5. Extensor hallucis extension: 4/5. Sensory intact to light touch L1-S1. Dressing clean, dry and intact. Surgical site no drainage. Problem Review and Assessment: Patient monitored, no new events overnight. LABS: Recent Labs 04/13/20 0447 HB 11.6* HCT 35.6* DATA: Diagnostic tests reviewed for today's visit: Most recent labs and imaging results. Assessment/Plan S/P Procedure(s) (LRB): ARTHROPLASTY REPLACE JOINT TOTAL KNEE (Right) on 04/12/2020 POSTOP PLAN: Physical Therapy evaluation Pain control Case Management for discharge planning ACTIVE PROBLEM LIST Senile Nuclear Sclerosis Anxiety State Coronary Atherosclerosis Other States Following Surgery of Eye and Adnexa Pseudophakia Senile Cataract, Unspecified Hypertension Hyperlipidemia S/P Cabg (Coronary Artery Bypass Graft) Prediabetes Depression Vitamin D Deficiency Fatigue Family History of Ischemic Heart Disease Vocal Cord Granuloma Chronic Cough Esophageal Stricture Heartburn Symptom Rotator Cuff Injury Skin Tag Dyspnea, Unspecified Cataract, Nuclear Sclerotic Senile, Right Unspecified Sleep Apnea Primary Osteoarthritis of Right Knee Ponv (Postoperative Nausea and Vomiting) S/P Total Knee Arthroplasty, Right Medication and Non-Pharmacologic VTE Prophylaxis/Anticoagulan ts Anticoagulant AND Antiplatelet Medications (From admission, onward) Start Dose Route Frequency Ordered Stop 04/13/20 0900 aspirin, enteric coated 81 mg tab(s) (Surgical Risk Categories ) 81 mg ORAL 2 TIMES DAILY 04/12/20 1305 -- 04/13/20 0000 aspirin, enteric coated (ECOTRIN LOW STRENGTH) 81 mg EC tablet (Medication Panel) 81 mg ORAL 2 TIMES DAILY 04/11/20 1155 05/13/20 2359 04/12/20 1315 graduated compression stockings (ia,az) 04/12/20 1315 graduated compression stockings (ia,az) 04/12/20 1315 activity - mobilize patient ([place]) VTE Prophylaxis: VTE prophylaxis appropriate POST OPERATIVE COMPLICATIONS: Complicated by: uneventful/none SIGNATURE: Kemal Calderón PA-C PATIENT NAME: Tmo Khan DATE: 04/13/2020 TIME: 9:05 AM PAGER/CONTACT #: [phone] [facility] THERAPY NTon 04-13-2020 THERAPY NT HNO ID: [id number] Author: Malaika DamonPtAb Rollins Service: Physical Therapy Author Type: Physical Therapist Type: Therapy (PT/OT/Speech/Resp) Filed: 04/13/2020 2:57 PM Note Text: Physical Therapy Treatment SERVICE DATE: 04/13/2020 SERVICE TIME: 1336 to 1447 ROOM: [id number] Recommended Discharge Disposition: Home PT Anticipated Discharge Needs: Physical Assist at Home Physical Assist at Home for: Cleaning;Laundry;Stairs; Self Care;Shopping;Transporta tion Recommended Discharge Equipment: Wheeled Walker PT Recommendations to Nursing: Ambulate with device;To bathroom;In halls;Transfer to/from chair;OOB for Meals;With assist of 1 person Device: Wheeled Walker PT 6 Clicks Score: 23 Precautions/Activity Restrictions: Total Knee Replacement;Weight Bearing Restrictions;Lines/Tubes /Drains Extremity With Weight Bearing Restricted: Right Lower Extremity Right Lower Extremity Weight Bearing Status: WBAT ASSESSMENT : Patient progressing as expected. Increased tolerance to activity today with reduced assist required for mobility. Patient complains intermittently about feeling light-headed and dizzy but attributes it to the pain medication. Nursing checked blood sugar during session. Patient was able to perform all LE exercise per TKR protocol with manual assist due to quadriceps weakness and pain. He was able to ambulate a functional distance and negotiate stairs with assist of his . Continue to recommend home PT at discharge. Patient is cleared for discharge from a PT perspective. Patient Disposition at Start of Session: Supine in Bed;Call Boyd in Reach;Family Present Patient Disposition at End of Session: Supine in Bed;Call Boyd in Reach;Family Present Tolerated Full Session Physiologic Response(Lightheaded/diz zy) Physical Therapy Problem List: Education Deficit;Pain;Safety Deficits;Decreased Activity Tolerance;Decreased Range Of Motion;Decreased Strength;Functional Mobility Impairment Patient /Caregiver Goals: Go Home;Walk Goals for Plan of Care: Able to perform HEP with: Set Up Transfer supine to/from sit with: Independent Transfer sit to/from stand with: Modified Independent Ambulate with: Modified Independent Distance: 150' Device: Wheeled Walker Ambulate up and down steps with: Minimal Assistance Number of steps: 2 Device: Cane;Hand Held Assist ROM: R knee 0-90* Progress Toward Goals: Progressing as expected Rehab Potential: Good PLAN: Treatment Frequency (times per week): 7 Current admission Treatment Interventions: Education;Joint Mobility;Strengthening;F unctional Mobility Training Plan of Care developed with: Patient;Family TREATMENT INTERVENTIONS: Therapy Diagnosis: Reduced mobility-other;Unsteadin ess on feet Interventions Provided: Therapeutic Exercise (75860);Therapeutic Activity (18433);Gait Training (23961) Therapeutic Exercise (36495) Treatment Minutes: 40 3 units Skilled Intervention(s): Instruction in therapeutic exercise per TKR protocol. Patient performed all supine and seated exercises 1 x 10 Verbal and tactile cuing provided for correct exercise technique, proper set up and frequency of exercise at discharge and use of ice for pain relief Therapeutic Activity (85619) Treatment Minutes: 11 1 unit Skilled Intervention(s): Instructed patient in supine to and from sit pushing with upper extremities to sit up Instruction in sit to and from stand technique with proper hand placement and body positioning at edge of bed/chair Gait Training (45741) Treatment Minutes: 20 1 unit Skilled Intervention(s): Instruction in sequencing, gait pattern, Instruction in correction of gait deviations, Instruction in WB precautions, Instruction in stair negotiation and Instruction in use of equipment, cues for sequence and pattern Total Timed Code Treatment Minutes: 71 Total Treatment Time (minutes): 71 SUBJECTIVE: Current Hospital Course: Chart reviewed and no significant medical updates relevant to therapy were noted Reason for Physical Therapy Consult : s/p R TKR Relevant Past Medical History: MDD, generalized anxiety, HTN, DM, NIDIA, CAD, retinal detachement, L TKR Patient Report: Patient and in agreement with plan for discharge home today. Home Environment Patient Lives With: Spouse Assistance Available: 24 Hour Entry To Home: Stairs;Without Rail Number Of Stairs Into Home: 2 Number Of Stairs To Bed/Bath: 0 Tub/Shower Type: tub shower Laundry: will complete Equipment Owned: Cane;Standard Walker Prior Functional Level: Within Functional Limits OBJECTIVE: CURRENT FUNCTIONAL STATUS: Current Functional Mobility Assist Level Additional Information Rolling Supine to Sit Supervision Sit to Supine Supervision Scooting Supervision Sit to Stand Supervision Stand to Sit Supervision Bed to Chair Toilet/Commode Gait Supervision Gait Device: Wheeled Walker Gait Distance (feet): 60' x 2 Stairs Minimal Assistance Stairs Device: Crutch(es);Hand Held Assist Number of Stairs: 12 Curb Step Car Transfer Gait Deviations Right Lower Extremity: Heel strike during initial stance decreased;Push off during terminal stance decreased;Lacks full knee extension during terminal swing;Knee flexion during stance increased;Stance time decreased;Weight bearing decreased Gait Deviations Left Lower Extremity: Step length decreased General Deviations/Observations: Deborah decreased -HLM: 7: Walk 25 feet or more Please see discipline specific clinical documentation flowsheet for complete details for this therapy evaluation/treatment. SIGNATURE: Malaika Rollins PT PATIENT NAME: Tom Khan DATE: April 13, 2020 TIME: 2:53 PM [facility] THERAPY NT HNO ID: [id number] Author: Michelle (Ot) ADALBERTO Bob Service: Occupational Therapy Author Type: Occupational Therapist Type: Therapy (PT/OT/Speech/Resp) Filed: 04/13/2020 10:03 AM Note Text: Occupational Therapy Evaluation SERVICE DATE: 04/13/2020 SERVICE TIME: 845 to 913 ROOM: [id number] Recommended Discharge Disposition: Home Anticipated Discharge Needs: Physical Assist at Home Physical Assist at Home for: Cleaning;Laundry;Stairs; Self Care;Shopping;Transporta tion OT Recommendations to Nursing: ADL?s in chair;To Bathroom for ADL?s /and or Toileting Equipment: Wheeled Walker OT 6 Clicks Score: 24 Precautions/Activity Restrictions: Total Knee Replacement;Weight Bearing Restrictions;Lines/Tubes /Drains Extremity With Weight Bearing Restricted: Right Lower Extremity Right Lower Extremity Weight Bearing Status: WBAT ASSESSMENT: Patient is safe to discharge from acute care setting to home and care of family supports via car from OT perspective. Patient is s/p RTKR and demonstrates impaired self care and functional mobility. Patient requires skilled OT intervention to maximize independence/safety with ADLs, IADLs, functional mobility, and to educate on precautions and adaptive techniques/equipment . Patient Disposition at Start of Session: Supine in Bed;Call Boyd in Reach Patient Disposition at End of Session: Supine in Bed;Call Boyd in Reach Tolerated Full Session Occupational Therapy Problem List: Safety Deficits;Impaired Self Care;Functional Mobility Impairment Patient /Caregiver Goals: Go Home Goals for Plan of Care: Lower Body Bathing with: Modified Independent Lower Body Dressing with: Modified Independent Demonstrate Competence With Education with: Independent PLAN: Treatment Frequency (times per week): 1 Current admission Treatment Interventions: Education;Self Care / Home Management;Functional Mobility Training Plan of Care developed with: Patient TREATMENT INTERVENTIONS: Therapy Diagnosis: Reduced mobility-other;Decreased activities of daily living (ADL) Interventions Provided: Evaluation;Self Nursing Home Management (89161) $ Evaluation-Low (25900) Billed Units: 1 unit Self Nursing Home Management (08484) Treatment Minutes: 13 1 unit Skilled Intervention(s): Educated on role of OT, POC, and discharge recommendations. Reviewed post-operative precautions and guidelines with ADLs and functional mobility/ transfer techniques. Handout provided. Instructed pt on safety with grooming and hygiene tasks utilizing proper hand and walker placement. Instructed pt on use of adaptive techniques/equipment with lower body dressing and bathing. Recommended home modifications for safety, including removal of throw rugs, clear pathways, and pre-positioning items for easy access. Patient instructed to not carry items in hands while using walker (use walker bag or basket). Instructed pt in functional transfers while maintaining post-operative precautions including: sit to stand, stand to sit, chair, toilet and car transfers. Educated on car transfer technique - pt verbalized understanding and declined need to simulate. Total Timed Code Treatment Minutes: 13 Total Treatment Time (minutes): 28 SUBJECTIVE: Current Hospital Course: Chart reviewed; see below Reason for Occupational Therapy Consult: s/p RTKR Relevant Past Medical History: MDD, generalized anxiety, HTN, DM, NIDIA, CAD, retinal detachement, L TKR Patient Report: Pt verbalized good understanding of OT education. Home Environment Patient Lives With: Spouse Assistance Available: 24 Hour Entry To Home: Stairs;Without Rail Number Of Stairs Into Home: 2 Number Of Stairs To Bed/Bath: 0 Tub/Shower Type: tub shower Laundry: will complete Equipment Owned: Cane;Standard Walker Prior Functional Level: Within Functional Limits OBJECTIVE: CURRENT FUNCTIONAL STATUS: Current Activities of Daily Living Assist Level Feeding Independent Grooming Independent Bathing Upper Body Set Up Bathing Lower Body Supervision Dressing Upper Body Independent Dressing Lower Body Supervision Toileting Modified Independent Instrumental Activities of Daily Living Assist Level Meal/Beverage Prep Light Cleaning Laundry Medication Management with Strategies Functional Mobility Assist Level Rolling Supine to Sit Independent Sit to Supine Independent Scooting Sit to Stand Verbal Cues Only Stand to Sit Verbal Cues Only Bed to Chair Supervision Stand Pivot Wheeled Walker Toilet/Commode Modified Independent Functional Mobility Supervision Wheeled Walker Please see discipline specific clinical documentation flowsheet for complete details for this therapy evaluation/treatment. SIGNATURE: Michelle Bob OTR/L PATIENT NAME: Tom Khan DATE: April 13, 2020 TIME: 10:02 AM [facility] ANES POSTPROC EVALon 020 ANES POSTPROC EVAL HNO ID: [id number] Author: Shawn Tran Service: ? Author Type: Anesthesiologist Type: Anesthesia Postprocedure Evaluation Filed: 04/12/2020 4:43 PM Note Text: POST ANESTHESIA EVALUATION NOTE : 1955 Procedure Summary Date: 04/12/20 Room / Location: OR07 / OR Anesthesia Start: 927 Anesthesia Stop: 1216 Procedure: ARTHROPLASTY REPLACE JOINT TOTAL KNEE (Right Knee) Diagnosis: Primary osteoarthritis of right knee (Primary osteoarthritis of right knee [M17.11]) Surgeons: Tima Soto Responsible Provider: Shawn Tran Anesthesia Type: spinal ASA Status: 3 Anesthesia Type: spinal Last vitals Vitals Value Taken Time BP 141/70 04/12/20 1533 Temp 36.8 ?C (98.2 ?F) 04/12/20 1533 Pulse 69 04/12/20 1533 Resp 18 04/12/20 1533 SpO2 96 % 04/12/20 1533 Post Anesthesia Patient Status Patient Evaluation: PACU. PACU/ICU Patient Condition: stable. Anticipated Disposition: inpatient floor planned admission. Neurological Status: aware and responsive. Pulmonary Status: breathing comfortably on room air Airway Control: returned to baseline unsupported. Cardiovascular Status: stable. Pain Management: clinically adequate Postoperative Hydration: acceptable. Intraoperative Events: no significant anesthesia events Recommendation: continue current plan of care. SIGNATURE: Shawn Tran MD PATIENT NAME: Tom Khan DATE: April 12, 2020 TIME: 4:43 PM CSN: [id number] [facility] ANES PRE-OPon 04-12-2020 ANES PRE-OP HNO ID: [id number] Author: Shawn Tran Service: ? Author Type: Anesthesiologist Type: Anesthesia Preprocedure Evaluation Filed: 04/12/2020 9:33 AM Note Text: ANESTHESIOLOGY DAY OF SURGERY NOTE : 1955 Procedure(s) (LRB): ARTHROPLASTY REPLACE JOINT TOTAL KNEE (Right) Surgeon(s): Tima Soto Estimated body mass index is 39.19 kg/m? as calculated from the following: Height as of 04/01/20: 180.3 cm (5' 11 ). Weight as of 04/01/20: 127.5 kg (281 lb). Most recent hematocrit and potassium results: Hematocrit 37.8 04/01/2020 Potassium 3.8 04/01/2020 Relevant Problems ANESTHESIA (+) PONV (postoperative nausea and vomiting) (+) Unspecified sleep apnea CARDIO (+) Coronary atherosclerosis (+) Hypertension (+) S/P CABG (coronary artery bypass graft) PULMONARY (+) Dyspnea, unspecified (+) Unspecified sleep apnea Other (+) Anxiety state (+) Depression (+) Hyperlipidemia (+) Prediabetes (+) Vocal cord granuloma I - PHYSICAL EVALUATION AIRWAY Patient intubated: No. Mallampati: III. TM distance: >3 FB. Neck ROM: limited extension. Mouth opening: adequate. Short neck: yes. Thick neck: yes DENTAL Dental findings: teeth intact. Additional exam findings: yes. CARDIOVASCULAR Rhythm: regular Rate: normal Murmur not present. PULMONARY Breath sounds clear to auscultation. II - ANESTHESIA PLAN ASA Score: 3 Anesthetic Plan: spinal NPO Status: adequate Monitoring plan: standard ASA. Postoperative analgesic plan: parenteral or oral opioids, peripheral nerve block and multimodal analgesia. Anesthetic Risks, Benefits, Alternatives, Personnel Discussed. Consent obtained from: patient. Patient / Surrogate agrees to blood products: Yes Potential Anesthesia issues that may suggest increased risk of complications or contractions to planned procedure: none. Vitals Value Taken Time BP 150/90 04/12/20 0737 Pulse 74 04/12/20 0737 Resp 16 04/12/20 0737 Temp 36.4 ?C (97.5 ?F) 04/12/20 0737 SpO2 96 % 04/12/20 0737 Facility-Administered Medications as of 04/12/2020 Medication Dose Route Frequency - lidocaine 10 mg/mL (1 %) 1-2 mg injection (XYLOCAINE) 0.1-0.2 mL INTRADERMAL PRN - lactated ringers infusion 5-30 mL/hr INTRAVENOUS CONTINUOUS - ceFAZolin 3 g in D5W 100 mL (ANCEF) 3 g INTRAVENOUS ONCE - vancomycin 1.5 g in D5W 250 mL (VANCOCIN) 1.5 g INTRAVENOUS ONCE - tranexamic acid 1,000 mg in NaCl 0.9% 100 mL (CYKLOKAPRON) 1,000 mg INTRAVENOUS ONCE - tranexamic acid 1,000 mg in NaCl 0.9% 100 mL (CYKLOKAPRON) 1,000 mg INTRAVENOUS ONCE - [COMPLETED] promethazine 12.5 mg tab(s) (PHENERGAN) 12.5 mg ORAL Pre-Op Once - [COMPLETED] acetaminophen 1,000 mg tab(s) (TYLENOL) 1,000 mg ORAL Pre-Op Once - [COMPLETED] celecoxib 200 mg cap(s) (CeleBREX) 200 mg ORAL Pre-Op Once Outpatient Medications as of 04/12/2020 Medication Sig - VRAYLAR 6 mg cap Take 1.5 mg by mouth. - chlorthalidone (HYGROTON) 25 mg tablet chlorthalidone 25 mg tablet - cloNIDine HCl (CATAPRES) 0.1 mg tablet clonidine HCl 0.1 mg tablet TAKE 1 TABLET BY MOUTH THREE TIMES A DAY - amLODIPine (NORVASC) 10 mg tablet Take 10 mg by mouth. - docusate sodium (COLACE) 100 mg capsule Take 1 capsule by mouth twice daily. - [START ON 04/13/2020] aspirin, enteric coated (ECOTRIN LOW STRENGTH) 81 mg EC tablet Take 1 tablet by mouth twice daily. - meloxicam (MOBIC) 15 mg tablet Take 1 tablet by mouth once daily for 14 days. - oxyCODONE IR (ROXICODONE) 5 mg immediate release tablet Take 1-2 tablets by mouth every 4 hours as needed for Pain for up to 7 days. for pain. - pantoprazole DR (PROTONIX) 20 mg tablet Take 1 tablet by mouth once daily for 14 days. - acetaminophen (TYLENOL EXTRA STRENGTH) 500 mg tablet Take 2 tablets by mouth every 8 hours as needed for Pain for up to 7 days. - hydrOXYzine pamoate (VISTARIL) 25 mg capsule Take 50 mg by mouth at bedtime as needed. - lamoTRIgine (LAMICTAL) 200 mg tablet TAKE 1 TABLET BY MOUTH EVERYDAY AT BEDTIME - VIIBRYD 40 mg TAKE 1 TABLET BY MOUTH EVERY DAY IN THE MORNING - metFORMIN (GLUCOPHAGE) 500 mg tablet Take 500 mg by mouth twice daily with meals. - busPIRone (BUSPAR) 10 mg tablet Take 20 mg by mouth three times daily. I have interviewed and examined the patient. I have reviewed the medical record and/or the pre-anesthesia evaluation, pertinent labs, and test results. This contains updated information obtained within 48 hours of Surgery/Procedure. SIGNATURE: Shawn Tran MD PATIENT NAME: Tom Khan DATE: April 12, 2020 TIME: 8:57 AM CSN: [id number] [facility] BRIEF OP NOTon 04-12-2020 BRIEF OP NOT HNO ID: [id number] Author: Eliseo Toussaint Service: Orthopaedic Surgery Author Type: Resident Type: Brief Op Note Filed: 04/12/2020 12:29 PM Note Text: ORTHOPAEDIC SURGERY BRIEF OP NOTE LOG ID: [id number] Surgery/Procedure Date: 04/12/2020 Incision/Procedure Start Time: 10:09 AM Incision Close/Procedure End Time: 12:06 PM Surgeon(s)/Proceduralist (s) and Identity Management Developer(s): Surgeon(s) and Role: * Tima Soto - Primary * Eliseo Toussaint - Resident - Assisting Procedure(s): Right TKA Anesthesia: Spinal Findings: Right knee OA Estimated Blood Loss: 10 ml Specimens: None Complications: None Pre-Op/Pre-Procedure Diagnosis: Right knee OA Post-Op/Post-Procedure Diagnosis: Same SIGNATURE: Eliseo Toussaint MD PATIENT NAME: Tom Khan DATE: April 12, 2020 TIME: 12:29 PM PAGER/CONTACT #: [phone] / [facility] CASE MANAGEMon 04-12-2020 CASE MANAGEM HNO ID: [id number] Author: Kellie Galvan RN Service: ? Author Type: Registered Nurse Type: Care Mgt Progress Note Filed: 04/12/2020 4:34 PM Note Text: CARE MANAGEMENT PROGRESS NOTE SERVICE DATE: 04/12/2020 SERVICE TIME: 4:33 pm LOS: 0 days Referral faxed to [facility] in [place]. phone # [phone] and fax # [phone] Wheeled walker ordered from [facility] SIGNATURE: Kellie Galvan RN PATIENT NAME: Tom Khan DATE: April 12, 2020 TIME: 4:33 PM PAGER/CONTACT #: [phone] [facility] CASE MANAGEM HNO ID: [id number] Author: Kellie (Rn) SAMUEL Galvan Service: ? Author Type: Registered Nurse Type: Care Mgt Progress Note Filed: 04/12/2020 2:09 PM Note Text: CARE MANAGEMENT PROGRESS NOTE SERVICE DATE: 04/12/2020 SERVICE TIME: 2:07 pm LOS: 0 days Procedure(s): Right TKA [place] of Choice Given: Yes Level of Care Discussed: Home Care Financial Disclosure Provided: Yes Financial Disclosure Comments: Tom Khan Provider List: Other: See Comment(states he has name of home care agency in phone he will give me) Provider list within the patient's requested geographic area shared with the patient/family: No Quality and resource use metrics shared with the patient that are relevant to the patient's goals of care and treatment preferences:: Yes Metrics: Functional Status Needs Prior to Discharge: OT/PT Evaluation;Home Care Order;Pharmacy Bedside Delivery Current Advance Directive: Health Care Power of Greige Goods Marker;Living Will In Chart: Yes Up To Date and Valid: Yes Lives with who can assist at home. Had a std walker. Meds filed here. CM Department will continue to follow. SIGNATURE: Kellie Galvan RN PATIENT NAME: Tom Khan DATE: April 12, 2020 TIME: 2:07 PM PAGER/CONTACT #: [phone] [facility] CONSULTon 04-12-2020 CONSULT HNO ID: [id number] Author: Woo Sanchez Service: General Internal Medicine Author Type: Physician Type: Consults Filed: 04/12/2020 7:05 PM Note Text: CONSULT NOTE - INTERNAL MEDICINE PATIENT NAME: Tom Khan SERVICE DATE: 04/12/2020 SERVICE TIME: 5:29 PM ADMITTING PHYSICIAN: Tima Soto CC: Post operative medical management; pt is s/p right TKR HPI: His pain is controlled well; he has been out of bed, tolerated activity well. He has been able to urinate after surgery without any problem. He denies any recent fever or chills, skin infections or any upper respiratory infections. Patient was diagnosed with coronary artery disease and had CABG in 2019. He feels he has been doing well since that time. PAST MEDICAL HISTORY Diagnosis Date - Anxiety state, unspecified Psychiatrist- Dr. Orourke (psychiatrist). with depression. - CAD (coronary artery disease) - Esophageal stricture - Essential hypertension, benign - Fracture Right arm - Other and unspecified hyperlipidemia - Other tear of cartilage or meniscus of knee, current left knee - Personal history of colonic polyps Removed 2001 - Primary osteoarthritis of right knee - Retinal detachment with retinal defect, unspecified Detached retina with surgery. 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 - CABG, ARTERY-VEIN, FIVE 10/09/08 - DISCISSION,2ND CATARACT,LASER os Yag Capsulotomy - EGD DILATION - REMV LENS MATERIAL,PHACOFRAGMT os Cataract Extraction - REPAIR DETACH RETINA,SCLERAL BUCKLE ou Scleral Buckle - REPAIR ROTATOR CUFF,ACUTE - VITRECTOMY,MECHANICAL os [place] Vitrectomy Current Facility-Administered Medications Medication Dose Route Frequency - [START ON 04/13/2020] vilazodone 40 mg tab(s) (VIIBRYD) 40 mg ORAL DAILY WITH BREAKFAST - busPIRone 20 mg tab(s) (BUSPAR) 20 mg ORAL TID - labetalol 200 mg tab(s) (TRANDATE) 200 mg ORAL BID - cloNIDine HCl 0.1 mg tab(s) (CATAPRES) 0.1 mg ORAL q 8 H - cariprazine cap 1.5 mg 1.5 mg ORAL DAILY - [START ON 04/13/2020] chlorthalidone 25 mg tab(s) (HYGROTON) 25 mg ORAL DAILY - [START ON 04/13/2020] aspirin, enteric coated 81 mg tab(s) 81 mg ORAL BID - NaCl 0.9% iv infusion 75 mL/hr INTRAVENOUS CONTINUOUS - sodium chloride 0.9 % (flush) 2-10 mL (BD POSIFLUSH) 2-10 mL INTRAVENOUS q 12 H - ceFAZolin iv piggyback 2 g in D5W (iso-osmotic) 100 mL (ANCEF) 2 g INTRAVENOUS q 8 H - morphine 2 mg injection 2 mg INTRAVENOUS q 3 H PRN - oxyCODONE IR 5-10 mg tab(s) (ROXICODONE) 5-10 mg ORAL q 4 H PRN - acetaminophen 325-650 mg tab(s) (TYLENOL) 325-650 mg ORAL q 4 H PRN - acetaminophen 1,000 mg tab(s) (TYLENOL) 1,000 mg ORAL q 8 H - ketorolac 15 mg injection (TORADOL) 15 mg INTRAVENOUS q 6 H - ondansetron 4 mg tab(s) (ZOFRAN) 4 mg ORAL q 6 H PRN Or - ondansetron (PF) 4 mg injection (ZOFRAN) 4 mg INTRAVENOUS q 6 H PRN - magnesium hydroxide 400 mg/5 mL 30 mL (MOM) 30 mL ORAL DAILY PRN - [START ON 04/13/2020] bisacodyl EC 10 mg tab(s) (DULCOLAX) 10 mg ORAL DAILY - aluminum-magnesium hydroxide-simethicone 200-200-20 mg/5 mL 30 mL (MAALOX,MYLANTA,MAG-AL PLUS) 30 mL ORAL q 2 H PRN - ascorbic acid (vitamin C) 500 mg tab(s) (VITAMIN C) 500 mg ORAL BID w MEALS - docusate sodium 100 mg cap(s) (COLACE) 100 mg ORAL BID - dextrose 40 % 15 g 15 g ORAL PRN Or - glucagon 1 mg injection 1 mg INTRAMUSCULAR PRN Or - dextrose 50 % 12.5 g injection 12.5 g INTRAVENOUS PRN - insulin lispro injection (rapid acting) (HumaLOG) SUBCUTANEOUS w MEALS - insulin lispro injection (rapid acting) (HumaLOG) SUBCUTANEOUS AT BEDTIME - vancomycin 1.5 g in D5W 250 mL (VANCOCIN) 1.5 g INTRAVENOUS ONCE - Patient Home Medications (stored in pharmacy) OTHER DAILY - [START ON 04/13/2020] amLODIPine 5 mg tab(s) (NORVASC) 5 mg ORAL DAILY - [START ON 04/13/2020] metFORMIN 500 mg tab(s) (GLUCOPHAGE) 500 mg ORAL BID w MEALS - lamoTRIgine 400 mg tab(s) (LaMICtal) 400 mg ORAL AT BEDTIME Social History Tobacco Use - Smoking status: Never Smoker - Smokeless tobacco: Never Used Substance Use Topics - Alcohol use: Not Currently Alcohol/week: 1.7 standard drinks Types: 2 Cans of beer per week - Drug use: No ALLERGIES No Known Allergies ROS: Patient denies any recent ENT or eye complaints, CP, palpitation, cough, wheeze, dizziness, dyspnea, abdominal pain, nausea, vomiting, urinary or bowel changes, rash or increased ankle swelling. Rest of the review of system is negative except as noted. OBJECTIVE PHYSICAL EXAM: Patient Vitals for the past 24 hrs: BP Temp Temp src Pulse Resp SpO2 Height Weight 04/12/20 1533 141/70 36.8 ?C (98.2 ?F) Oral 69 18 96 % ? ? 04/12/20 1320 ? 180.3 cm (5' 11 ) 124.7 kg (275 lb) 04/12/20 1308 133/72 ? ? 63 16 99 % ? ? 04/12/20 1257 125/66 ? ? 62 18 96 % ? ? 04/12/20 1245 124/78 ? ? 64 18 97 % ? ? 04/12/20 1230 134/79 ? ? 65 ? 100 % ? ? 04/12/20 1215 128/81 36.5 ?C (97.7 ?F) Temporal 71 16 100 % ? ? 04/12/20 0930 150/100 ? ? 68 16 98 % ? ? 04/12/20 0737 150/90 36.4 ?C (97.5 ?F) Temporal Art 74 16 96 % ? ? Body mass index is 38.35 kg/m?. GENERAL: no distress. AANDOX3 SKIN: normal turgor HEENT: conjunctiva is pink, no icterus; m/m moist, no sinus tenderness NECK: no LN LUNGS: Lungs clear to auscultation, Fair air entry. CARDIAC: normal S1 and S2; no rub or gallops ABDOMEN: Abdomen soft, non-tender. BS normal. EXTREMETIES: Bilateral normal ankle DF Problem List ACTIVE PROBLEM LIST Senile Nuclear Sclerosis Anxiety State Coronary Atherosclerosis Other States Following Surgery of Eye and Adnexa Pseudophakia Senile Cataract, Unspecified Hypertension Hyperlipidemia S/P Cabg (Coronary Artery Bypass Graft) Prediabetes Depression Vitamin D Deficiency Fatigue Family History of Ischemic Heart Disease Vocal Cord Granuloma Chronic Cough Esophageal Stricture Heartburn Symptom Rotator Cuff Injury Skin Tag Dyspnea, Unspecified Cataract, Nuclear Sclerotic Senile, Right Unspecified Sleep Apnea Primary Osteoarthritis of Right Knee Ponv (Postoperative Nausea and Vomiting) S/P Total Knee Arthroplasty, Right DATA: Diagnostic tests reviewed for today's visit: Most recent labs: CBC, Coags, BMP, Mg, Phos: No new labs Assessment/Plan: 1. Status post right TKR: He is doing well at this time, discussed with him regarding follow-up labs in the morning and therapy. 2. Coronary artery disease, status post CABG: He is doing well without any significant recent symptoms. 3. Diabetes mellitus type 2, insulin-dependent: Advised regarding sliding scale coverage with Humalog. 4. Hypertension, essential: His current medications will be continued with parameters as ordered. 5. Anxiety and depression: Continue present management. SIGNATURE: Woo Sanchez MD DATE: April 12, 2020 TIME: 5:29 PM [facility] NURSING PROGon 04-12-2020 NURSING PROG HNO ID: [id number] Author: Diya DamonRn) SAMUEL Tim Service: ? Author Type: Registered Nurse Type: Nursing Progress Note Filed: 04/12/2020 2:09 PM Note Text: Nursing Progress Note Patient Name: Tom Khan Patient Location: [address]/[place] [address] Patient transferred from PACU to room 2-2 in stable condition at this time. Patient is alert and oriented x 3. Vital signs stable. Patient educated regarding 5D/unit environment, call light, fall precautions, incentive spirometer and pain management. Patient verbalizes understanding. Was told in report from PACU that patient requesting psych consult. Clarified this request with patient who states that he has no thoughts of harming himself or others. States that he would like the consult to speak with someone about decreasing or discontinuing psych meds. Spoke with QI Curiel who states that patient can follow-up outpatient for medication adjustment. Patient and notified. This note was completed by: Diya Tim RN [facility] NURSING PROG HNO ID: [id number] Author: Nancy DamonRn) SAMUEL Sales Service: ? Author Type: Registered Nurse Type: Nursing Progress Note Filed: 04/12/2020 12:39 PM Note Text: Dr. Montelongo at bedside to do block on right knee at this time. Pt tolerated procedure well. [facility] NURSING PROG HNO ID: [id number] Author: Hebert DamonRn) SAMUEL Mast Service: Nursing Author Type: Registered Nurse Type: Nursing Progress Note Filed: 04/12/2020 12:14 PM Note Text: Discharge Status: Patient is Awakening, and is no airway issues. Skin condition was WNL. Transported to recovery room via bed with siderails up. Accompanied by inside phone sales and surgeon. [facility] NURSING PROG HNO ID: [id number] Author: Hebert DamonRn) SAMUEL Mast Service: Nursing Author Type: Registered Nurse Type: Nursing Progress Note Filed: 04/12/2020 9:40 AM Note Text: Patient transported to the OR via cart, accompanied by SURFACER OPERATOR RN. Level of consciousness: Alert and Oriented x 3 Emotional Status:Calm Sensory Impairments: No Language Barrier: No Mobility Impairments: Yes, spinal Addressed any patient concerns regarding consents, OR environment, and anesthetics. Body temperature maintained by maintaining OR room temperature between 68-72 degrees F, providing patient with warm bath blankets, limiting areas of exposure and providing warm irrigation fluid. [facility] NURSING PROG HNO ID: [id number] Author: Veronica DamonRn) SAMUEL Dominguez Service: Nursing Author Type: Registered Nurse Type: Nursing Progress Note Filed: 04/12/2020 8:31 AM Note Text: Nursing Progress Note Patient Name: Tom Khan Patient Location: [facility]OPERATING ROOM POOL/[facility]OR POOL Daily Note:underwear off. This note was completed by: Veronica Dominguez RN [facility] OPERATIVE NOon 04-12-2020 OPERATIVE NO HNO ID: [id number] Author: Tima Soto Service: Orthopaedic Surgery Author Type: Physician Type: Operative Report Filed: 04/13/2020 8:19 AM Note Text: OPERATIVE/PROCEDURE REPORT LOG ID: [id number] Surgery/Procedure Date: 04/12/2020 Incision/Procedure Start Time: 10:09 AM Incision Close/Procedure End Time: 12:06 PM Surgeon(s) and Identity Management Developer(s): Surgeon(s) and Role: * Tima Soto - Primary * Eliseo (Res) Norbert - Resident - Assisting Physician Identity Management Developer: Alcon Waldrop (Pa) Procedure(s): Procedure(s) (LRB): ARTHROPLASTY REPLACE JOINT TOTAL KNEE (Right) Anesthesia: Spinal Findings: The medial compartment was severely eburnated with bone loss on the posterior medial tibia and posterior medial femoral condyles Preop Diagnosis: Pre-Op Diagnosis Codes: * Primary osteoarthritis of right knee [M17.11] Postop Diagnosis: Pre-Op Diagnosis Codes: * Primary osteoarthritis of right knee [M17.11] IMPLANTS: Implant Name Type Inv. Item Serial No. Deli Clerk Lot No. LRB Model Num No. Used CEMENT SIMPLEX P BONE RADIOPAQUE FULL DOSE STERILE - [id number] Cement / Putty CEMENT SIMPLEX P BONE RADIOPAQUE FULL DOSE STERILE [employer]Y/[employer] [id number] Right [id number] CEMENT SIMPLEX P BONE RADIOPAQUE FULL DOSE STERILE - [id number] Cement / Putty CEMENT SIMPLEX P BONE RADIOPAQUE FULL DOSE STERILE [employer]Y/[employer] [id number] Right [id number] 1 COMPONENT PERSONA 11 STANDARD COCR FEMORAL CRUCIATE RETAIN - [id number] Joint - Knee COMPONENT PERSONA 11 STANDARD COCR FEMORAL CRUCIATE RETAIN [employer] [id number] Right [phone] 1 BASEPLATE PERSONA 5D G TIVANIUM TIBIAL CEMENTED STEM KNEE RIGHT - [id number] Joint BASEPLATE PERSONA 5D G TIVANIUM TIBIAL CEMENTED STEM KNEE RIGHT [employer] [id number] Right [phone] 1 Persona Imp Knee Surf Artc R 10 04-13 [phone] Implant [employer] [id number] Right [phone] 1 EXTENSION PERSONA 14MM TAPER 30+ MM STEM KNEE TIBIA - [id number] Joint EXTENSION PERSONA 14MM TAPER 30+ MM STEM KNEE TIBIA [employer] [id number] Right [phone] 1 COMPONENT 38MM ALL POLY PATELLAR PSN - [id number] Joint - Knee COMPONENT 38MM ALL POLY PATELLAR PSN [employer] [id number] Right [phone] 1 PROBLEM LIST: ACTIVE PROBLEM LIST Senile Nuclear Sclerosis Anxiety State Coronary Atherosclerosis Other States Following Surgery of Eye and Adnexa Pseudophakia Senile Cataract, Unspecified Hypertension Hyperlipidemia S/P Cabg (Coronary Artery Bypass Graft) Prediabetes Depression Vitamin D Deficiency Fatigue Family History of Ischemic Heart Disease Vocal Cord Granuloma Chronic Cough Esophageal Stricture Heartburn Symptom Rotator Cuff Injury Skin Tag Dyspnea, Unspecified Cataract, Nuclear Sclerotic Senile, Right Unspecified Sleep Apnea Primary Osteoarthritis of Right Knee Ponv (Postoperative Nausea and Vomiting) S/P Total Knee Arthroplasty, Right OPERATIVE INDICATIONS: The patient has a long history of progressiverightknee pain, arthritis, and degeneration. They have developed varus deformity in the right knee from predominantly medial wear and bone loss. Non-operative treatment and Physical Therapy have been attempted , but have not improved or controlled the symptoms and pain that occurs during normal daily activities. Knee motion has also become limited and is restricting the patient. righttotal knee arthroplasty was recommended. The risks, benefits and potential complications of the arthroplasty surgery were discussed with the patient in detail. Specific details of the surgical procedure, hospitalization, recovery, rehabilitation, and long-term precautions were also presented. Pre-operative teaching was provided. Implant/prosthesis selection was outlined, and the many options available were explained; the final choice will be made at the time of the procedure to match the anatomy and condition of the bone, ligaments, tendons, and muscles. The patient was seen by [facility] for pre-operative optimization, and risk assessment. Stacie-operative blood management and the potential for blood transfusion were discussed with risks and options clearly outlined. Understanding of all topics was conveyed to me by the patient pre-operatively, and patient consent was given to proceed with theright total knee replacement. OPERATIVE PROCEDURE: The patient was identified and brought into the Operating Room by the anesthesia and nursing teams. A huddle was performed with the patient's participation to confirm name, date of , surgery/site of surgery, and allergies. Anesthesia was successfully performed. The patient was then positioned supine on the operating room table, and all bony prominences were padded. Intravenous antibiotic prophylaxis dosing was confirmed. A tourniquet was applied to the right upper thigh. A full knee exam was done after anesthesia was in full effect. The operative leg was prepped and draped in the usual sterile fashion. A surgical time-out was performed immediately preceding the incision with all personnel in the operating room; the patient identity was again confirmed, the correct knee-surgical site and extremity were identified and confirmed, X-rays were reviewed, and availability of the appropriate surgical equipment was established. The right knee was exsanguinated and exposed using a limited anterior-midline skin incision. Dissection was carried down through skin and subcutaneous tissue to the extensor mechanism with a scalpel. A median para-patellar arthrotomy was made to enter the knee space sharply. A large amount of normal appearing joint fluid was encountered and suctioned. The synovium was thickened, hypertrophic, and inflamed. A partial synovectomy was performed for exposure, and the medial and lateral gutters were cleared of scar and synovial reflections. The medial soft tissues were released off the tibia and medial osteophytes allowing for retractor placement to protect the MCL and to release the tight medial structures. Degenerative meniscal remnants were excised medially and laterally. The patellar synovial reflections were released and the patella exposed . The patella and trochlea demonstrated wear. A caliper was used to measure the patella. Towel clips were placed around the patella and a freehand cut was made at the appropriate depth leaving at least 11mm of bone. A patella protector was then placed. The patella was then subluxed laterally. The knee was then flexed up to 90 degrees. Assessment of the knee joint revealed severe end-stage articular damage with little to no remaining medial weight bearing cartilage. The medial compartment was severely eburnated with bone loss on the posterior medial tibia and posterior medial femoral condyles, resulting in the varus deformity. The anterior cruciate ligament was excised. Osteophytes were removed from the notch. Osteophytes were then further debrided from the femur and the tibia. Attention was then turned to the femur. The medullary cavity of the femur was entered anterior-medial to the intra-condylar notch above the PCL insertion with a 5/6th inch step drill. The femoral canal was over-reamed, irrigated, and suctioned to prevent fat embolization. An intramedullary alignment system was then placed, fixed to the femur with pins, and the distal femoral osteotomy was made in 5 degrees of valgus. Attention was then turned to the tibia. Retractors were placed medially and laterally to protect the collateral ligaments, and a Luciano retractor was placed in the intra-condylar notch. The tibia was then subluxed anteriorly for wide exposure. An extramedullary alignment system was then placed and the proximal tibial osteotomy was made in 3 degrees posterior slope perpendicular to the tibial axis. The predominant medial wear defect necessitated asymmetric medial and lateral cut depths to achieve proper alignment. The knee was then brought to extension and the appropriate sized spacer block was placed. This brought the knee to full extension. Spacer block was placed and found to fit nicely was neutrally aligned and well balanced. We then inspectecd the flexion gap and placed the femur in 3 degrees of external rotation in accordance with the soft tissue balance. We verified this against the epicondylar axis and [place]'s line. The femur was sized and drill holes were made for the cutting block. The 4 in 1 cutting block was impacted into place and secured. Cuts were completed using a sagittal saw with the collaterals protected by Z-retractors. The posterior recesses and condyles were cleared of osteophyte for the high flex function of the knee with large curved osteotome. The proximal tibia was then sized and a trial tibial tray was placed. The tray was rotated so that its midpoint was at the junction of middle one-third and lateral two-thirds of the tibial tubercle. Pins fixed the trial in this position and the tibia was prepped. A femoral trial implant was placed; excellent fit was confirmed. The medial-lateral and anterior-posterior dimensions were checked; anatomic fit and coverage were achieved.and trial reductions were done. Trial reduction demonstrated the knee achieved full extension with excellent stability and range of motion,with no tendency toward mid flexion instability with varus-valgus stress. The PCL was intact and function, with a solid endoint to posterior drawer testing . Attention was then turned to the patella where it was sized and lug holes were drilled. A trial button was then placed and tracking of the patella and the entire knee trial was excellent; range of motion was excellent without instability. The lugs were drilled and final bone preparations were made to accommodate the final implants. All trials were removed. The wound was copiously lavaged with a pulse irrigation/suction system. The posterior recess of the knee and areas of known bleeding were treated with the electrocautery to reduce post-operative bleeding. The cut bone surfaces were then irrigated again, suctioned, and dried. A batch of Polymethylmethacrylate (PMMA) bone cement was mixed, and the final implants were cemented into place, tibia followed by femur followed by patella. The cement was compressed using a non-constrained poly trial which was removed so the excess cement could be curetted free. The knee was held in extension until the cement cured. Again it was taken through a range of motion. The trial was removed and the final 10 MC polyethylene was impacted into place. The tourniquet was released and hemostasis was achieved. The wound was again copiously irrigated. A pain cocktail was injected into the stacie-articular tissues. The extensor mechanism and capsule were then anatomically closed with interrupted #1 absorbable suture. Knee stability and range of motion with the capsule closed was excellent, and range of motion was 0 to 135 without excessive stress on the repair. Instrument and sponge count was completed and confirmed correct. Deep and superficial subcutaneous tissue was closed with interrupted 2-0 absorable suture. A running 4-0 absorbable subcuticular stitch was used to re-approximate the skin edges.Topical skin adhesive was applied. A sterile silver impregnated compression dressing was placed. PAS stockings were placed. The patient tolerated the procedure, was transferred from the operating room table to a hospital bed, and taken to Recovery/PACU in stable condition. They will be weightbearing as tolerated, receive 24 hours of antibiotics and receive a course of DVT prophylaxis. PAIN COCKTAIL: marcaine and exparel Estimated Blood Loss: 125 mls Specimens: none Drains: None Complications: None Resident opened and closed and Physician Identity Management Developer closed, without direct supervision but with primary surgeon/proceduralist readily available and the remainder of the procedure was performed by the primary surgeon/proceduralist with assistance. SIGNATURE: Tima Soto MD PATIENT NAME: Tom Khan DATE: April 13, 2020 TIME: 8:18 AM PAGER/CONTACT #: [facility] PT EDon 04-12-2020 PT ED HNO ID: [id number] Author: Veronica DamonRn) SAMUEL Dominguez Service: Nursing Author Type: Registered Nurse Type: Patient Education Filed: 04/12/2020 8:08 AM Note Text: PATIENT EDUCATION TOPIC: PROCEDURE / SURGERY: Pre-op Teaching: Logistics Protocols Complication Prevention PATIENT NAME: Tom Khan PATIENT LOCATION: -OPERATING ROOM STRAWN/L* READINESS TO LEARN COGNITIVE ABILITY: Alert and oriented MOTIVATION TO LEARN: Interested FAMILY SUPPORT: Unable to assess - Family not present INSTRUCTION PROVIDED TO: Patient PATIENT LEARNS BEST BY: Multiple Methods FACTORS AFFECTING LEARNING: None PHYSICAL LIMITATIONS AFFECTING LEARNING: None LEARNING RESPONSE PATIENT/FAMILY RESPONSE: Verbalizes understanding of: PRE-OPERATIVE INSTRUCTIONS-Correct action to take to follow pre-operative instructions METHOD OF INSTRUCTION: Verbal instruction FOLLOW-UP PLAN: Patient instructed to call with any further issues INSTRUCTIONAL AIDS USED: NA SUPPLEMENTAL MATERIAL PROVIDED TO PATIENT: None REFERRAL (RECOMMENDATION): None Electronically Signed By: Veronica Dominguez RN [facility] THERAPY NTon 04-12-2020 THERAPY NT HNO ID: [id number] Author: Malaika (Pt) Ayo Service: Physical Therapy Author Type: Physical Therapist Type: Therapy (PT/OT/Speech/Resp) Filed: 04/12/2020 4:09 PM Note Text: Physical Therapy Evaluation SERVICE DATE: 04/12/2020 SERVICE TIME: 1503 to 1553 ROOM: [place] [address] Recommended Discharge Disposition: Home PT Anticipated Discharge Needs: Physical Assist at Home Physical Assist at Home for: Cleaning;Laundry;Meals;M edication Management;Stairs;Shoppi ng;Transportation Recommended Discharge Equipment: Wheeled Walker PT Recommendations to Nursing: Ambulate with device;To bathroom;In halls;Transfer to/from chair;OOB for Meals;With assist of 1 person Device: Wheeled Walker PT 6 Clicks Score: 20 Precautions/Activity Restrictions: Total Knee Replacement;Weight Bearing Restrictions;Lines/Tubes /Drains Extremity With Weight Bearing Restricted: Right Lower Extremity Right Lower Extremity Weight Bearing Status: WBAT ASSESSMENT : Patient presents with pain, reduced ROM, strength and functional activity tolerance s/p R TKR. In addition, per the patient's chart he has some baseline cognitive deficits. Patient's impairments are limiting his safety and independence with bed mobility, transfers, ambulation and stair negotiation. Patient complained of feeling lightheaded and dizzy with sitting and standing at EOB. Patient will benefit from home PT at discharge for continued education, exercise progression and to facilitate return to independence with mobility. Patient Disposition at Start of Session: Supine in Bed;Call Boyd in Reach Patient Disposition at End of Session: OOB in Chair;Call Boyd in Reach;Family Present;Chair Alarm Tolerance Limited By Physiologic Response(Lightheaded/diz zy) Physical Therapy Problem List: Education Deficit;Pain;Safety Deficits;Decreased Activity Tolerance;Decreased Range Of Motion;Decreased Strength;Functional Mobility Impairment Patient /Caregiver Goals: Go Home;Walk Goals for Plan of Care: Able to perform HEP with: Set Up Transfer supine to/from sit with: Independent Transfer sit to/from stand with: Modified Independent Ambulate with: Modified Independent Distance: 150' Device: Wheeled Walker Ambulate up and down steps with: Minimal Assistance Number of steps: 2 Device: Cane;Hand Held Assist ROM: R knee 0-90* Rehab Potential: Good PLAN: Treatment Frequency (times per week): 7 Current admission Treatment Interventions: Education;Joint Mobility;Strengthening;F unctional Mobility Training Plan of Care developed with: Patient;Family TREATMENT INTERVENTIONS: Therapy Diagnosis: Reduced mobility-other;Unsteadin ess on feet Interventions Provided: Evaluation;Therapeutic Exercise (51647);Therapeutic Activity (90121) $ Evaluation-Moderate (32126) Billed Units: 1 unit Therapeutic Exercise (89954) Treatment Minutes: 20 1 unit Skilled Intervention(s): Instruction in therapeutic exercise per TKR protocol. Patient performed all supine exercises 1 x 10 Verbal and tactile cuing provided for correct exercise technique and frequency of antiembolics Therapeutic Activity (74165) Treatment Minutes: 15 1 unit Skilled Intervention(s): Instructed patient in supine to sit pushing with upper extremities to sit up Instruction in sit to and from stand technique with proper hand placement and body positioning at edge of bed/chair Patient was instructed in proper use of walker during tranfers and ambulation. He was educated on WB status Total Timed Code Treatment Minutes: 35 Total Treatment Time (minutes): 50 SUBJECTIVE: Current Hospital Course: Chart reviewed; Patient admitted with OA R knee, s/p R TKR Reason for Physical Therapy Consult : s/p R TKR Relevant Past Medical History: MDD, generalized anxiety, HTN, DM, NIDIA, CAD, retinal detachement, L TKR Patient Report: Patient reported feeling dizzy and lightheaded but was vague about the degree therefore opted not to ambulate with patient Home Environment Patient Lives With: Spouse Assistance Available: 24 Hour Entry To Home: Stairs;Without Rail Number Of Stairs Into Home: 2 Number Of Stairs To Bed/Bath: 0 Tub/Shower Type: tub shower Laundry: will complete Equipment Owned: Cane;Standard Walker Prior Functional Level: Within Functional Limits OBJECTIVE: CURRENT FUNCTIONAL STATUS: Current Functional Mobility Assist Level Additional Information Rolling Supine to Sit Supervision Sit to Supine Scooting Supervision Sit to Stand Contact Guard Assistance Stand to Sit Contact Guard Assistance Bed to Chair Toilet/Commode Gait Stairs Curb Step Car Transfer JH-HLM: 5: Standing (1 or more minutes) Please see discipline specific clinical documentation flowsheet for complete details for this therapy evaluation/treatment. SIGNATURE: Malaika Rollins PT PATIENT NAME: Tom Khan DATE: April 12, 2020 TIME: 4:02 PM [facility] NURSING PROGon 04-07-2020 NURSING PROG HNO ID: [id number] Author: Malu DamonRn) SAMUEL Hernández Service: Anesthesiology Author Type: Registered Nurse Type: Nursing Progress Note Filed: 04/07/2020 2:53 PM Note Text: ADDENDUM: 04/02/[address] Rodrigue Bush completed. Ok to proceed per PACC KEVAN. Chart Check COMPLETE Malu Hernández RN April 07, 2020 2:53 PM [facility] NURSING PROGon 04-02-2020 NURSING PROG HNO ID: [id number] Author: Flor DamonRn) SAMUEL Hyman Service: Anesthesiology Author Type: Registered Nurse Type: Nursing Progress Note Filed: 04/02/2020 11:19 AM Note Text: PACC Nurse Progress Note History AND Physical: PACC Visit Date: 04/01/2020 Labs Within Last 6 Months: CBC: Date 04/01/2020 BMP/CMP: Date 04/01/2020 HBA1C: Date 04/01/2020 TYPE AND SCREEN: Date 04/01/2020 IRON + TIBC: Date 04/01/2020 FERRITIN BLD: Date 04/01/2020 COVID-19: Date scheduled for 04/09/2020 ?1:00 PM Imaging Within Last 12 Months: N/A Cardiac Testing: [facility] Sinus Rhythm with 1st Degree AV Block:Right Bundle Branch Block:Possible inferior Infarction, Age Undetermined :Abnormal EKG - Unconfirmed in [facility] Last Menstrual Period: LMP Date: N/A Postmenopausal >1yr: N/A, S/P Hysterectomy: N/A BMI Percentile (PEDS): N/A Risk Assessment: Patient has appointment scheduled with Psychiatrist for 04/02/20 for evaluation for surgery. Appointment scheduled with Dr. Rodrigue Darling. Anesthesia Review: Intubation History: No history of difficult intubation Significant Anesthesia Considerations: Postop nausea/vomiting After Anesthesia with eye surgery Narrative: N/A Pre-op Considerations: Primary osteoarthritis of right knee Assessment: will have surgery ? ? Unspecified sleep apnea Assessment: uses CPAP ? ? Esophageal stricture Assessment: had in 2012,no further episodes ? ? 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 ? Depression Assessment: sees Psychiatrist will have Evaluation Pre op with Dr. Leeann Darling 04/02/20 for surgery ? ? Prediabetes Assessment: on oral med, monitored per PCP [facility] (112) ? ? S/P CABG (coronary artery bypass graft) Assessment: had in 2008,monitored per PCP ? ? Hyperlipidemia Assessment: no meds currently ,stable ? ? Hypertension Assessment: on med,moniotred per PCP BP 143/74 pulse 64 ? ? Coronary atherosclerosis Assessment: monitored per PCP Chart Check: IN PROGRESS Patient has appointment scheduled with Psychiatrist for 04/02/20 @ 1:00pm for evaluation for surgery. Appointment scheduled with Dr. Rodrigue Darling. COVID-19: Date scheduled for 04/09/2020 ?1:00 PM Flor Hyman RN April 02, 2020 9:59 AM [facility] Type and SCR (30D)on 020 ABO/RH(D) Negative [facility] Comment on above: Performed By: #### T SCR30 #### [facility] [address] [id number] HOSPon 02-26-2020 HOSP Patient:Tom Khan MRN: Height:5' 11 (1.803 m) Weight:281 lb (127.461 kg) Outpatient Medications as of 04/12/20: docusate sodium (COLACE) 100 mg capsule aspirin, enteric coated (ECOTRIN LOW STRENGTH) 81 mg EC tablet meloxicam (MOBIC) 15 mg tablet oxyCODONE IR (ROXICODONE) 5 mg immediate release tablet pantoprazole DR (PROTONIX) 20 mg tablet acetaminophen (TYLENOL EXTRA STRENGTH) 500 mg tablet semaglutide (OZEMPIC SUBCUTANEOUS) labetalol (TRANDATE) 200 mg tablet MEDICATION, NON-DATABASE mupirocin (BACTROBAN) 2 % ointment VRAYLAR 6 mg cap chlorthalidone (HYGROTON) 25 mg tablet hydrOXYzine pamoate (VISTARIL) 25 mg capsule lamoTRIgine (LAMICTAL) 200 mg tablet VIIBRYD 40 mg cloNIDine HCl (CATAPRES) 0.1 mg tablet amLODIPine (NORVASC) 10 mg tablet metFORMIN (GLUCOPHAGE) 500 mg tablet busPIRone (BUSPAR) 10 mg tablet Admission/Clinic Administered Medications as of 04/12/20: lidocaine 10 mg/mL (1 %) 1-2 mg injection (XYLOCAINE) lactated ringers infusion ceFAZolin 3 g in D5W 100 mL (ANCEF) vancomycin 1.5 g in D5W 250 mL (VANCOCIN) tranexamic acid 1,000 mg in NaCl 0.9% 100 mL (CYKLOKAPRON) Patient Home Medications (stored in pharmacy) Problem List: Senile nuclear sclerosis [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] Anxiety state [F41.1] Coronary atherosclerosis [I25.10] Other states following surgery of eye and adnexa [Z98.890] Pseudophakia [Z96.1] Senile cataract, unspecified [H25.9] Hypertension [I10] Hyperlipidemia [E78.5] S/P CABG (coronary artery bypass graft) [Z95.1] Prediabetes [R73.03] Depression [F32.9] Vitamin D deficiency [E55.9] Fatigue [R53.83] Family history of ischemic heart disease [Z82.49] 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] Chronic cough [R05] Esophageal stricture [K22.2] Heartburn symptom [R12] Rotator cuff injury [S46.009A] Skin tag [L91.8] Dyspnea, unspecified [R06.00] Cataract, nuclear sclerotic senile, right [H25.11] Unspecified sleep apnea [G47.30] Primary osteoarthritis of right knee [M17.11] PONV (postoperative nausea and vomiting) [R11.2, Z98.890] Allergies: No Known Allergies Date Verified:04/12/20 Lab Values Lab Value Units Date High Low POTA* 3.8 mmol/L 04/01/2020 5.1 3.7 BRANDIE* 37.8 % 04/01/2020 51.0 39.0 No progress notes entered within the past 30 days Normal [facility] CBC with Diffon 11-09-2018 Abs. Basophil 0.00 k/uL Normal 0.0-0.2 [facility] Comment on above: Performed By: #### C DP, CMPX, FT4, LIPR, TSH #### [facility] [address] [place] [address] Clinical Support Specialist: Artem Swann MD #### GLYHGB #### [place] [address] Clinical Support Specialist: Hiram Mccullough MD Abs.Neutrophil (Seg) 4.30 k/uL Normal 1.3-9.1 [facility] Comment on above: Performed By: #### C DP, CMPX, FT4, LIPR, TSH #### [facility] [address] [place] [address] Clinical Support Specialist: Artem Swann MD #### GLYHGB #### [place] [address] Clinical Support Specialist: Hiram Mccullough MD Basophils/100 WBC (Bld) 0 % Normal 0-2 [facility] Comment on above: Performed By: #### C DP, CMPX, FT4, LIPR, TSH #### [facility] [address] [place] [address] Clinical Support Specialist: Artem Swann MD #### GLYHGB #### [place] [address] Clinical Support Specialist: Hiram Mccullough MD Eosinophils #/vol (Bld) 0.00 10*3/uL Normal 0.0-0.4 [facility] Comment on above: Performed By: #### C DP, CMPX, FT4, LIPR, TSH #### [facility] [address] [place] [address] Clinical Support Specialist: Artem Swann MD #### GLYHGB #### [address] [address] Clinical Support Specialist: Hiram Mccullough MD Eosinophils/100 WBC (Bld) 0 % Normal 0-4 [facility] Comment on above: Performed By: #### C DP, CMPX, FT4, LIPR, TSH #### [facility] [address] [place] [address] Clinical Support Specialist: Artem Swann MD #### GLYHGB #### [address] [address] Clinical Support Specialist: Hiram Mccullough MD Erythrocyte distribution width Ratio (RBC) 14.3 % Normal 11.5-14.9 [facility] Comment on above: Performed By: #### C DP, CMPX, FT4, LIPR, TSH #### [facility] [address] [place] [address] Clinical Support Specialist: Artem Swann MD #### GLYHGB #### [address] [address] Clinical Support Specialist: Hiram Mccullough MD Hematocrit Volume Fraction (Bld) 40.3 % Low 41-53 [facility] Comment on above: Performed By: #### C DP, CMPX, FT4, LIPR, TSH #### [facility] [address] [place] [address] Clinical Support Specialist: Artem Swann MD #### GLYHGB #### [address] [address] Clinical Support Specialist: Hiram Mccullough MD Hemoglobin mass conc (Bld) 13.4 g/dL Low 13.5-17.5 [facility] Comment on above: Performed By: #### C DP, CMPX, FT4, LIPR, TSH #### [facility] [address] [place] [address] Clinical Support Specialist: Artem Swann MD #### GLYHGB #### [address] [address] Clinical Support Specialist: Hiram Mccullough MD Lymphocytes #/vol (Bld) 0.50 10*3/uL Low 1.0-4.8 [facility] Comment on above: Performed By: #### C DP, CMPX, FT4, LIPR, TSH #### [facility] [address] [place] [address] Clinical Support Specialist: Artem Swann MD #### GLYHGB #### [address] [address] Clinical Support Specialist: Hiram Mccullough MD Lymphocytes/100 WBC (Bld) 9 % Low 24-44 [facility] Comment on above: Performed By: #### C DP, CMPX, FT4, LIPR, TSH #### [facility] [address] [place] [address] Clinical Support Specialist: Artem Swann MD #### GLYHGB #### [address] [address] Clinical Support Specialist: Hiram Mccullough MD [facility] mass (RBC) 30.7 pg Normal 26-34 [facility] Comment on above: Performed By: #### C DP, CMPX, FT4, LIPR, TSH #### [facility] [address] [place] [address] Clinical Support Specialist: Artem Swann MD #### GLYHGB #### [address] [address] Clinical Support Specialist: Hiram Mccullough MD MCHC mass conc (RBC) 33.3 g/dL Normal 31-37 [facility] Comment on above: Performed By: #### C DP, CMPX, FT4, LIPR, TSH #### [facility] [address] [place] [address] Clinical Support Specialist: Artem Swann MD #### GLYHGB #### [address] [address] Clinical Support Specialist: Hiram Mccullough MD MCV Entitic volume (RBC) 92.1 fL Normal 80-100 [facility] Comment on above: Performed By: #### C DP, CMPX, FT4, LIPR, TSH #### [facility] [address] [place] [address] Clinical Support Specialist: Artem Swann MD #### GLYHGB #### [address] [address] Clinical Support Specialist: Hiram Mccullough MD Monocytes #/vol (Bld) 0.40 10*3/uL Normal 0.1-1.3 [facility] Comment on above: Performed By: #### C DP, CMPX, FT4, LIPR, TSH #### [facility] [address] [place] [address] Clinical Support Specialist: Artem Swann MD #### GLYHGB #### [address] [address] [address] Clinical Support Specialist: Hiram Mccullough MD Monocytes/100 WBC (Bld) 8 % High 1-7 [facility] Comment on above: Performed By: #### C DP, CMPX, FT4, LIPR, TSH #### [facility] [address] [place] [address] Clinical Support Specialist: Artem Swann MD #### GLYHGB #### [address] [place] [address] Clinical Support Specialist: Hiram Mccullough MD Neutrophil (Seg) 83 % High 36-66 [facility] Comment on above: Performed By: #### C DP, CMPX, FT4, LIPR, TSH #### [facility] [address] [place] [address] Clinical Support Specialist: Artem Swann MD #### GLYHGB #### [address] [address] Clinical Support Specialist: Hiram Mccullough MD Platelet mean volume Entitic volume (Bld) 6.5 fL Normal 6.0-12.0 [facility] Comment on above: Performed By: #### C DP, CMPX, FT4, LIPR, TSH #### [facility] [address] [place] [address] Clinical Support Specialist: Artem Swann MD #### GLYHGB #### [address] [address] Clinical Support Specialist: Hiram Mccullough MD Platelets #/vol (Bld) 284 10*3/uL Normal 150-450 [facility] Comment on above: Performed By: #### C DP, CMPX, FT4, LIPR, TSH #### [facility] [address] [place] [address] Clinical Support Specialist: Artem Swann MD #### GLYHGB #### [address] [address] Clinical Support Specialist: Hiram Mccullough MD RBC #/vol (Bld) 4.38 10*6/uL Low 4.5-5.9 [facility] Comment on above: Performed By: #### C DP, CMPX, FT4, LIPR, TSH #### [facility] [address] [place] [address] Clinical Support Specialist: Artem Swann MD #### GLYHGB #### [address] [address] Clinical Support Specialist: Hiram Mccullough MD WBC #/vol (Bld) 5.3 10*3/uL Normal 3.5-11.0 [facility] Comment on above: Performed By: #### C DP, CMPX, FT4, LIPR, TSH #### [facility] [address] [place] [address] Clinical Support Specialist: Artem Swann MD #### GLYHGB #### [address] [address] Clinical Support Specialist: Hiram Mccullough MD Abs.Imm.Granulocyt e NOT REPORTED Normal 0.00-0.30 [facility] Comment on above: Performed By: #### C DP, CMPX, FT4, LIPR, TSH #### [facility] [address] [place] [address] Clinical Support Specialist: Artem Swann MD #### GLYHGB #### [address] [address] Clinical Support Specialist: Hiram Mccullough MD Auto Diff Performed NOT REPORTED Normal [facility] Comment on above: Performed By: #### C DP, CMPX, FT4, LIPR, TSH #### [facility] [address] [place] [address] Clinical Support Specialist: Artem Swann MD #### GLYHGB #### [address] [address] Clinical Support Specialist: Hiram Mccullough MD Immature granulocytes #/vol (Bld) NOT REPORTED Normal 0 [facility] Comment on above: Performed By: #### C DP, CMPX, FT4, LIPR, TSH #### [facility] [address] [place] [address] Clinical Support Specialist: Artem Swann MD #### GLYHGB #### [address] [address] Clinical Support Specialist: Hiram Mccullough MD NRBC Automated NOT REPORTED Normal [facility] Comment on above: Performed By: #### C DP, CMPX, FT4, LIPR, TSH #### [facility] [address] [place] [address] Clinical Support Specialist: Artem Swann MD #### GLYHGB #### [address] [address] Clinical Support Specialist: Hiram Mccullough MD Platelets #/vol (Bld) NOT REPORTED Normal [facility] Comment on above: Performed By: #### C DP, CMPX, FT4, LIPR, TSH #### [facility] [address] [place] [address] Clinical Support Specialist: Artem Swann MD #### GLYHGB #### [address] [address] Clinical Support Specialist: Hiram Mccullough MD RBC morphology finding Nom (Bld) NOT REPORTED Normal [facility] Comment on above: Performed By: #### C DP, CMPX, FT4, LIPR, TSH #### [facility] [address] [place] [address] Clinical Support Specialist: Artem Swann MD #### GLYHGB #### [address] [address] Clinical Support Specialist: Hiram Mccullough MD WBC Morphology NOT REPORTED Normal [facility] Comment on above: Performed By: #### C DP, CMPX, FT4, LIPR, TSH #### [facility] [address] [place] [address] Clinical Support Specialist: Artem Swann MD #### GLYHGB #### [address] [place] [address] Clinical Support Specialist: Hiram Mccullough MD Comp Metabolic Pr/rfx MGon 0 11-09-2018 (cont.) Normal [facility] Comment on above: Result Comment: Aver age GFR for 60-69 years old: 85 mL/min/1.73sq m Chronic Kidney Disease: <60 mL/min/1.73sq m Kidney failure: <15 mL/min/1.73sq m eGFR calculated using average adult body mass. Additional eGFR calculator available at: http://[email or web address]/multiple_crcl_2012.htm Performed By: #### C DP, CMPX, FT4, LIPR, TSH #### [facility] [address] [place] [address] Clinical Support Specialist: Artem Swann MD #### GLYHGB #### [address] [address] Clinical Support Specialist: Hiram Mccullough MD Albumin mass conc 3.7 g/dL Normal 3.5-5.2 [facility] Comment on above: Performed By: #### C DP, CMPX, FT4, LIPR, TSH #### [facility] [address] [place] [address] Clinical Support Specialist: Artem Swann MD #### GLYHGB #### [address] [place] [address] Clinical Support Specialist: Hiram Mccullough MD Alkaline Phos 60 U/L Normal 40-129 [facility] Comment on above: Performed By: #### C DP, CMPX, FT4, LIPR, TSH #### [facility] [address] [place] [address] Clinical Support Specialist: Artem Swann MD #### GLYHGB #### [address] [place] [address] Clinical Support Specialist: Hiram Mccullough MD ALT enzyme act/vol 29 U/L Normal 5-41 [facility] Comment on above: Performed By: #### C DP, CMPX, FT4, LIPR, TSH #### [facility] [address] [place] [address] Clinical Support Specialist: Artem Swann MD #### GLYHGB #### [address] [place] [address] Clinical Support Specialist: Hiram Mccullough MD Anion gap molar conc 8 mmol/L Low 9-17 [facility] Comment on above: Performed By: #### C DP, CMPX, FT4, LIPR, TSH #### [facility] [address] [place] [address] Clinical Support Specialist: Artem Swann MD #### GLYHGB #### [address] [place] [address] Clinical Support Specialist: Hiram Mccullough MD AST enzyme act/vol 30 U/L Normal <40 [facility] Comment on above: Performed By: #### C DP, CMPX, FT4, LIPR, TSH #### [facility] [address] [place] [address] Clinical Support Specialist: Artem Swann MD #### GLYHGB #### [address] [place] [address] Clinical Support Specialist: Hiram Mccullough MD Bilirubin Ql (U) 0.44 mg/dL Normal 0.3-1.2 [facility] Comment on above: Performed By: #### C DP, CMPX, FT4, LIPR, TSH #### [facility] [address] [place] [address] Clinical Support Specialist: Artem Swann MD #### GLYHGB #### [address] [id number] Clinical Support Specialist: Hiram Mccullough MD Calcium mass conc 8.9 mg/dL Normal 8.6-10.4 [facility] Comment on above: Performed By: #### C DP, CMPX, FT4, LIPR, TSH #### [facility] [address] [place] [address] Clinical Support Specialist: Artem Swann MD #### GLYHGB #### [address] [id number] Clinical Support Specialist: Hiram Mccullough MD Chloride molar conc 101 mmol/L Normal 98-107 [facility] Comment on above: Performed By: #### C DP, CMPX, FT4, LIPR, TSH #### [facility] [address] [place] [address] Clinical Support Specialist: Artem Swann MD #### GLYHGB #### [address] [address] Clinical Support Specialist: Hiram Mccullough MD CO2 molar conc 28 mmol/L Normal 20-31 [facility] Comment on above: Performed By: #### C DP, CMPX, FT4, LIPR, TSH #### [facility] [address] [place] [address] Clinical Support Specialist: Artem Swann MD #### GLYHGB #### [address] [address] Clinical Support Specialist: Hiram Mccullough MD Creatinine mass conc 0.92 mg/dL Normal 0.70-1.20 [facility] Comment on above: Performed By: #### C DP, CMPX, FT4, LIPR, TSH #### [facility] [address] [place] [address] Clinical Support Specialist: Artem Swann MD #### GLYHGB #### [address] [place] [address] Clinical Support Specialist: Hiram Mccullough MD GFR, Amer >60 Normal >60 [facility] Comment on above: Performed By: #### C DP, CMPX, FT4, LIPR, TSH #### [facility] [address] [place] [address] Clinical Support Specialist: Artem Swann MD #### GLYHGB #### [address] [address] Clinical Support Specialist: Hiram Mccullough MD GFR,non Amer >60 Normal >60 [facility] Comment on above: Performed By: #### C DP, CMPX, FT4, LIPR, TSH #### [facility] [address] [place] [address] Clinical Support Specialist: Artem Swann MD #### GLYHGB #### [address] [address] Clinical Support Specialist: Hiram Mccullough MD Glucose mass conc 111 mg/dL High 70-99 [facility] Comment on above: Performed By: #### C DP, CMPX, FT4, LIPR, TSH #### [facility] [address] [place] [address] Clinical Support Specialist: Artem Swann MD #### GLYHGB #### [address] [address] Clinical Support Specialist: Hiram Mccullough MD Potassium molar conc 4.5 mmol/L Normal 3.7-5.3 [facility] Comment on above: Performed By: #### C DP, CMPX, FT4, LIPR, TSH #### [facility] [address] [place] [address] Clinical Support Specialist: Artem Swann MD #### GLYHGB #### [address] [address] Clinical Support Specialist: Hiram Mccullough MD Protein mass conc 6.8 g/dL Normal 6.4-8.3 [facility] Comment on above: Performed By: #### C DP, CMPX, FT4, LIPR, TSH #### [facility] [address] [place] [address] Clinical Support Specialist: Artem Swann MD #### GLYHGB #### [address] [address] Clinical Support Specialist: Hiram Mccullough MD Sodium molar conc 137 mmol/L Normal 135-144 [facility] Comment on above: Performed By: #### C DP, CMPX, FT4, LIPR, TSH #### [facility] [address] [place] [address] Clinical Support Specialist: Artem Swann MD #### GLYHGB #### [address] [address] Clinical Support Specialist: Hiram Mccullough MD Urea nitrogen mass conc 17 mg/dL Normal 8-23 [facility] Comment on above: Performed By: #### C DP, CMPX, FT4, LIPR, TSH #### [facility] [address] [place] [address] Clinical Support Specialist: Artem Swann MD #### GLYHGB #### [address] [address] Clinical Support Specialist: Hiram Mccullough MD Albumin/Globulin mass ratio NOT REPORTED Normal 1.0-2.5 [facility] Comment on above: Performed By: #### C DP, CMPX, FT4, LIPR, TSH #### [facility] [address] [place] [address] Clinical Support Specialist: Artem Swann MD #### GLYHGB #### [address] [place] [address] Clinical Support Specialist: Hiram Mccullough MD BUN/CRE Ratio NOT REPORTED Normal -20 [facility] Comment on above: Performed By: #### C DP, CMPX, FT4, LIPR, TSH #### [facility] [address] [place] [address] Clinical Support Specialist: Artem Swann MD #### GLYHGB #### [address] [address] Clinical Support Specialist: Hiram Mccullough MD Staging: NOT REPORTED Normal [facility] Comment on above: Performed By: #### C DP, CMPX, FT4, LIPR, TSH #### [facility] [address] [facility] [place] [address] Clinical Support Specialist: Artem Swann MD #### GLYHGB #### [address] [address] Clinical Support Specialist: Hiram Mccullough MD Hemoglobin A1Con 11-09-2018 Hemoglobin A1c/Hemoglobin.tot al mass fraction (Bld) 6.5 % High 4.0-6.0 [facility] Comment on above: Performed By: #### C DP, CMPX, FT4, LIPR, TSH #### [facility] [address] [place] [address] Clinical Support Specialist: Artem Swann MD #### GLYHGB #### [address] [address] Clinical Support Specialist: Hiram Mccullough MD Hemoglobin A1c/Hemoglobin.tot al mass fraction (Bld) 140 mg/dL Normal [facility] Comment on above: Result Comment: The ADA and AACC recommend providing the estimated average glucose result to permit better patient understanding of their HBA1c result. Performed By: #### C DP, CMPX, FT4, LIPR, TSH #### [facility] [address] [place] [address] Clinical Support Specialist: Artem Swann MD #### GLYHGB #### [address] [address] Clinical Support Specialist: Hiram Mccullough MD Lipid Profileon 11-09-2018 Cholesterol in HDL mass conc 48 mg/dL Normal >40 [facility] Comment on above: Result Comment: HDL Guidelines: <40 Undesirable 40-59 Borderline >59 Desirable Performed By: #### C DP, CMPX, FT4, LIPR, TSH #### [facility] [address] [place] [address] Clinical Support Specialist: Artem Swann MD #### GLYHGB #### [address] [address] Clinical Support Specialist: Hiram Mccullough MD Cholesterol in LDL mass conc 106 mg/dL Normal 0-130 [facility] Comment on above: Result Comment: LDL Guidelines: <100 Desirable 100-129 Near to/above Desirable 130-159 Borderline >159 Undesirable Direct (measured) LDL and calculated LDL are not interchangeable tests. Performed By: #### C DP, CMPX, FT4, LIPR, TSH #### [facility] [address] [place] [address] Clinical Support Specialist: Artem Swann MD #### GLYHGB #### [address] [address] Clinical Support Specialist: Hiram Mccullough MD Cholesterol mass conc 177 mg/dL Normal <200 [facility] Comment on above: Result Comment: Cholesterol Guidelines: <200 Desirable 200-240 Borderline >240 Undesirable Performed By: #### C DP, CMPX, FT4, LIPR, TSH #### [facility] [address] [place] [address] Clinical Support Specialist: Artem Swann MD #### GLYHGB #### [address] [place] [address] Clinical Support Specialist: Hiram Mccullough MD Cholesterol.total/ Cholesterol in HDL mass ratio 3.7 {ratio} Normal <5 [facility] Comment on above: Performed By: #### C DP, CMPX, FT4, LIPR, TSH #### [facility] [address] [place] [address] Clinical Support Specialist: Artem Swann MD #### GLYHGB #### [address] [address] Clinical Support Specialist: Hiram Mccullough MD Triglyceride mass conc 117 mg/dL Normal <150 [facility] Comment on above: Result Comment: Triglyceride Guidelines: <150 Desirable 150-199 Borderline 200-499 High >499 Very high Based on AHA Guidelines for fasting triglyceride, June 2012. Performed By: #### C DP, CMPX, FT4, LIPR, TSH #### [facility] [address] [place] [address] Clinical Support Specialist: Artem Swann MD #### GLYHGB #### [address] [address] Clinical Support Specialist: Hiram Mccullough MD Cholesterol in VLDL mass conc NOT REPORTED Normal 1-30 [facility] Comment on above: Performed By: #### C DP, CMPX, FT4, LIPR, TSH #### [facility] [address] [place] [address] Clinical Support Specialist: Artem Swann MD #### GLYHGB #### [address] [address] Clinical Support Specialist: Hiram Mccullough MD Thyroid Stim. Horm.on 2018 Thyrotropin Qn 1.13 m[IU]/L Normal 0.30-5.00 [facility] Comment on above: Performed By: #### C DP, CMPX, FT4, LIPR, TSH #### [facility] [address] [place] [address] Clinical Support Specialist: Artem Swann MD #### GLYHGB #### [facility] [address] [place], [place] [address] Clinical Support Specialist: Hiram Mccullough MD Thyroxine, Freeon 11-09-2018 Thyroxine, Free 1.29 ng/dL Normal 0.93-1.70 [facility] Comment on above: Performed By: #### C DP, CMPX, FT4, LIPR, TSH #### [facility] [address] [place] [address] Clinical Support Specialist: Artem Swann MD #### GLYHGB #### [facility] [address] [place] [address] Clinical Support Specialist: Hiram Mccullough MD Streptococcus Group A Cultur e-Pharyngeal Swabon 07-19-2017 Streptococcus Group A Culture-Pharyngeal Swab Negative Normal NEGATIVE [facility] Comment on above: Result Comment: A po sitive result indicates the specimen is presumptively positive for Group A Beta Strep by bacitracin method. Performed By: #### F DAMEON A/B MOLECUL ####[id number] [place], [place] [address] Amylaseon 07-18-2017 Amylase 82 U/L Normal 30 - 110 [facility] Comment on above: Performed By: #### F DAMEON A/B MOLECUL ####[address] [place], [place] [address] Basic Metabolic Panelon 07-04 eGFR (non-black) 107.69 Normal [facility] Comment on above: Performed By: #### B MP ####[address] [place] [address] eGFR (non-black) 70.21 Normal [facility] Comment on above: Result Comment: eGFR Interpretation:Normal: Equal to or greater than 60 mL/min/1.73 meters squaredChronic Kidney Disease: Less than 60 mL/min/1.73 meters squaredKidney Failure: Less than 15 mL/min/1.73 meters squared Performed By: #### B MP ####[address] [place] [address] eGFR (non-black) 87.6 Normal [facility] Comment on above: Result Comment: eGFR Interpretation:Normal: Equal to or greater than 60 mL/min/1.73 meters squaredChronic Kidney Disease: Less than 60 mL/min/1.73 meters squaredKidney Failure: Less than 15 mL/min/1.73 meters squared Performed By: #### B MP ####[address] [place] [address] eGFR (non-black) 93.16 Normal [facility] Comment on above: Result Comment: eGFR Interpretation:Normal: Equal to or greater than 60 mL/min/1.73 meters squaredChronic Kidney Disease: Less than 60 mL/min/1.73 meters squaredKidney Failure: Less than 15 mL/min/1.73 meters squared Performed By: #### B MP ####[address] [place] [address] eGFR (non-black) 100.97 Normal [facility] Comment on above: Performed By: #### B MP ####[address] [place] [address] eGFR (non-black) 80.94 Normal [facility] Comment on above: Performed By: #### B MP ####[address] [place] [address] Age 61 year(s) Normal [facility] Comment on above: Performed By: #### B MP ####[address] [place] [address] Calcium 9.6 mg/dL Normal 8.4 - 10.2 [facility] Comment on above: Performed By: #### B MP ####[address] [place] [address] Chloride 102 mmol/L Normal 98 - 107 [facility] Comment on above: Performed By: #### B MP ####[address] [place] [address] CO2 25 mmol/L Normal 22 - 32 [facility] Comment on above: Performed By: #### B MP ####[address] [place] [address] Creatinine 0.90 mg/dL Normal 0.66 - 1.25 [facility] Comment on above: Performed By: #### B MP ####[address] [place] [address] Glucose mass conc 105 mg/dL High 65 - 100 [facility] Comment on above: Performed By: #### B MP ####[address] [place] [address] Potassium molar conc 4.4 mmol/L Normal 3.6 - 5.0 [facility] Comment on above: Performed By: #### B MP ####[address] [place] [address] Sodium 141 mmol/L Normal 135 - 145 [facility] Comment on above: Performed By: #### B MP ####[address] [place] [address] Urea nitrogen 13 mg/dL Normal 9 - 20 [facility] Comment on above: Performed By: #### B MP ####[address] [place] [address] CBC W Auto Differentialon Abs Neut # 6.2 10 X 3/mm Normal 1.8 - 7.7 [facility] Comment on above: Performed By: #### C BC Auto Diff ####[address] [place] [address] Basophils/100 WBC Auto (Bld) 0 % Normal 0 - 1 [facility] Comment on above: Performed By: #### C BC Auto Diff ####[address] [place] [address] Eosinophils 0.0 10 X 3/mm Normal 0.0 - 0.5 [facility] [place] Comment on above: Performed By: #### C BC Auto Diff ####[address] [place] [address] Eosinophils/100 leukocytes 1 % Normal 0 - 5 [facility] Comment on above: Performed By: #### C BC Auto Diff ####[address] [place] [address] Erythrocyte distribution width Auto Ratio (RBC) 14.6 % High 11.5 - 14.5 [facility] Comment on above: Performed By: #### C BC Auto Diff ####[address] [place] [address] Erythrocytes (RBC) 4.68 10 X 6/mm Low 4.70 - 6.10 [facility] Comment on above: Performed By: #### C BC Auto Diff ####[address] [place] [address] Hematocrit (HCT) 42.2 % Normal 42.0 - 52.0 [facility] Comment on above: Performed By: #### C BC Auto Diff ####[address] [place] [address] Hemoglobin mass conc (Bld) 14.5 g/dL Normal 13.0 - 16.0 [facility] Comment on above: Performed By: #### C BC Auto Diff ####[address] [place] [address] Lymphocytes 1.8 10 X 3/mm Normal 1.0 - 4.0 [facility] [place] Comment on above: Performed By: #### C BC Auto Diff ####[address] [place] [address] Lymphocytes/100 leukocytes 20 % Normal 20 - 40 [facility] Comment on above: Performed By: #### C BC Auto Diff ####[address] [place] [address] MCH 30.9 pg Normal 27.0 - 35.0 [facility] Comment on above: Performed By: #### C BC Auto Diff ####[address] [place] [address] MCHC mass conc (RBC) 34.3 g/dL Normal 32.0 - 36.0 [facility] Comment on above: Performed By: #### C BC Auto Diff ####[address] [place] [address] MCV 90.2 fL Normal 80.0 - 100.0 [facility] Comment on above: Performed By: #### C BC Auto Diff ####[address] [place] [address] Monocytes/100 leukocytes 9 % Normal 1 - 15 [facility] Comment on above: Performed By: #### C BC Auto Diff ####[address] [place] [address] Neutrophils/100 WBC Auto (Bld) 70 % High 50 - 70 [facility] Comment on above: Performed By: #### C BC Auto Diff ####[address] [place] [address] Platelet mean volume (PMV) 8.1 fL Normal 7.5 - 11.5 [facility] Comment on above: Performed By: #### C BC Auto Diff ####[address] [place] [address] Platelets 237 uLx10 Normal 150 - 450 [facility] Comment on above: Performed By: #### C BC Auto Diff ####[address] [place] [address] WBC (Leukocytes) 8.9 10 X 3/mm Normal 3.7 - 11.0 [facility] Comment on above: Performed By: #### C BC Auto Diff ####[place] [address] [place] [address] CT RENAL STONEon 07-18-2017 CT RENAL STONE EXAM: CT RENAL STONE CLINICAL STATEMENT: Right flank pain and nausea. COMPARISON: None. TECHNIQUE: CT examination of the abdomen and pelvis without IV contrast. Coronal and sagittal reformations were performed. Dose reduction techniques were achieved by using automated exposure control and/or adjustment of mA and/or kV according to patient size and/or use of iterative reconstruction technique.LUNG BASES FINDINGS: No nodule, infiltrate, or effusion in noted. There is a calcified granuloma in the left lower lobe.ABDOMINAL FINDINGS: There are gallstones without biliary dilatation. No evidence for a pancreatitis or biliary dilatation. There are borderline prominent lymph nodes in the upper retroperitoneum. Romaine hepatis lymph node measures up to 1.1 cm in short axis. This is thought to be a benign reactive lymph node.No urolithiasis and no hydronephrosis. No perinephric stranding or fluid. There is atherosclerotic calcification of the abdominal aorta. No focal aneurysm.No splenomegaly. No dilatation of the stomach or duodenum or small bowel. There is stool throughout the colon. No colitis. Normal appendix. No ascites or free air.PELVIC FINDINGS: There is mild prostatomegaly. Prostate is 5.4 x 4.4 cm. Urinary bladder is unremarkable. No bladder calculus.No pelvic free fluid. No bowel herniation into the inguinal regions.IMPRESSION:1. No urolithiasis. No hydronephrosis.2. Gallstones without evidence for cholecystitis or biliary obstruction.3. No other acute findings are identified to account for flank pain and nausea.4. Normal appendix.5. Prostatomegaly.Report electronically signed by: Dr. Kamron Alonso Normal [facility] Hepatic Function Panelon Alanine aminotransferase (ALT) 35 U/L Normal 8 - 72 [facility] Comment on above: Performed By: #### F DAMEON A/B MOLECUL ####[address] [place] [address] Albumin 4.6 g/dL Normal 3.5 - 5.0 [facility] Comment on above: Performed By: #### F DAMEON A/B MOLECUL ####[address] [place] [address] Alkaline phosphatase (ALP) 45 U/L Normal 38 - 126 [facility] Comment on above: Performed By: #### F DAMEON A/B MOLECUL ####[address] [place] [address] Aspartate aminotransferase (AST) 25 U/L Normal 17 - 59 [facility] Comment on above: Performed By: #### F DAMEON A/B MOLECUL ####[address] [place] [address] Bilirubin (direct) 0.0 mg/dL Normal 0.0 - 0.2 [facility] Comment on above: Performed By: #### F DAMEON A/B MOLECUL ####[address] [place] [address] Bilirubin (total) 0.5 mg/dL Normal 0.2 - 1.3 [facility] Comment on above: Performed By: #### F DAMEON A/B MOLECUL ####[address] [place] [address] Protein 7.5 g/dL Normal 6.3 - 8.2 [facility] Comment on above: Performed By: #### F DAMEON A/B MOLECUL ####[address] [place] [address] Infectious Monoon 07-18-2017 Infectious [place] Negative Normal NEGATIVE [facility] Comment on above: Performed By: #### M NOE TEST ####[address] [place] [address] Internal Control ACCEPTABLE Normal [facility] Comment on above: Performed By: #### M NOE TEST ####[address] [place] [address] Lipaseon 07-18-2017 Lipase 209 U/L Normal 23 - 300 [facility] Comment on above: Performed By: #### F DAMEON A/B MOLECUL ####[address] [place] [address] Lipid Panelon 07-18-2017 HDL/Cholesterol Ratio 3.3 Ratio Normal 1.0 - 4.5 [facility] Comment on above: Performed By: #### L IPID PANEL ####[address] [place] [address] LDL Cholesterol 75 mg/dL Normal 20 - 100 [facility] Comment on above: Result Comment: If t he triglyceride value is >400 mg/dL, the calculated LDL value is not accurate. Performed By: #### L IPID PANEL ####[address] [place] [address] Cholesterol 168 mg/dL Normal 100 - 200 [facility] Comment on above: Result Comment: <200 mg/dL is recommended cholesterol level. Performed By: #### L IPID PANEL ####[address] [place] [address] HDL Cholesterol 51 mg/dL Normal [facility] Comment on above: Result Comment: Norm al HDL ranges:Males: >40 mg/dLFemales: >60 mg/dL Performed By: #### L IPID PANEL ####[address] [place] [address] Triglyceride 210 mg/dL High 10 - 150 [facility] Comment on above: Result Comment: <150 mg/dL is recommended triglyceride level. Performed By: #### L IPID PANEL ####[address] [place] [address] PSA-Screenon 07-18-2017 PSA-Screen 1.07 ng/mL Normal 0.00 - 4.00 [facility] Comment on above: Result Comment: [facility] UTILIZES [employer] PSA METHODOLOGY. DIFFERENT TEST METHODS CANNOT BE USED INTERCHANGEABLY. PSA RESULTS IN A GIVEN PATIENT SAMPLE DETERMINED WITH DIFFERENT TESTS AND FROM DIFFERENT MANUFACTURERS CAN VARY DUE TO DIFFERENCES IN TEST METHODS AND REAGENTS. Performed By: #### F DAMEON A/B MOLECUL ####[id number] [place] [address] TSHon 07-18-2017 Thyroid stimulating hormone (TSH) 1.050 mIU/mL Normal 0.470 - 4.680 [facility] Comment on above: Performed By: #### F DAMEON A/B MOLECUL ####[address] [place] [address] Troponin I, Extra Sensitiveo n 07-18-2017 Age at Specimen Collection = Normal [facility] Comment on above: Performed By: #### T ROPONIN I ####[address] [place] [address] Performed By: #### F DAMEON A/B MOLECUL ####[address] [place] [address] Performed By: #### L IPID PANEL ####[address] [place] [address] Troponin I.cardiac mass conc ng/mL Normal 0.000 - 0.034 [facility] Comment on above: Result Comment: Limi t of Detection: <0.012 ng/mLAt Risk of Myocardial Damage: 0.012-0.034 ng/mLProbable Myocardial Damage: >0.034 ng/mL Performed By: #### F DAMEON A/B MOLECUL ####[address] [place] [address] Troponin I.cardiac mass conc ng/mL Normal 0.000 - 0.034 [facility] Comment on above: Result Comment: Limi t of Detection: <0.012 ng/mLAt Risk of Myocardial Damage: 0.012-0.034 ng/mLProbable Myocardial Damage: >0.034 ng/mL Performed By: #### T ROPONIN I ####[address] [place] [address] Troponin I.cardiac mass conc ng/mL Normal 0.000 - 0.034 [facility] Comment on above: Result Comment: Limi t of Detection: <0.012 ng/mLAt Risk of Myocardial Damage: 0.012-0.034 ng/mLProbable Myocardial Damage: >0.034 ng/mL Performed By: #### T ROPONIN I ####[address] [address] XR CHEST PA OR AP (1 VIEW)on 07-18-2017 XR CHEST PA OR AP (1 VIEW) SINGLE AP CHESTCLINICAL HISTORY: Hypertension and vertigo. COMPARISON: Chest x-ray 02/29/2012.FINDINGS: Single AP upright portable view is submitted. The lung apices are partially obscured by a thyroid shield. The cardiomediastinal silhouette is stable. The second inferior most sternal wire is fractured, stable. Lungs, pulmonary vasculature, and pleural spaces are normal. No acute osseous lesion is present. IMPRESSION: No acute cardiopulmonary abnormality. Report electronically signed by: Dr. Efra Young Normal [facility] Group A Strepon 07-17-2017 Rapid strep test Negative Normal NEGATIVE [facility] Comment on above: Performed By: #### R APID STREP SCR ####[address] [address] Internal Control ACCEPTABLE Normal [facility] Comment on above: Performed By: #### R APID STREP SCR ####[address] [address] RAPID FLUon 07-17-2017 Internal Control ACCEPTABLE Normal [facility] Comment on above: Performed By: #### F DAMEON A/B MOLECUL ####[address] [address] Flu A Negative Normal NEGATIVE [facility] Comment on above: Performed By: #### F DAMEON A/B MOLECUL ####[address] [address] Flu B Negative Normal NEGATIVE [facility] Comment on above: Result Comment: A po sitive result indicates the presence of Influenza A/B antigen. A negative result should be interpreted as presumptively negative for the presence of Influenza A/B antigen. Performed By: #### F DAMEON A/B MOLECUL ####[address] [place] [address] Age at Specimen Collection = Normal [facility] Comment on above: Performed By: #### F DAMEON A/B MOLECUL ####[address] [place] [address] Performed By: #### M NOE TEST ####[address] [place] [address] Performed By: #### B MP ####[address] [place] [address] Performed By: #### C BC Auto Diff ####[address] [place] [address] Performed By: #### U A w reflex C&S ####[address] [place] [address] Performed By: #### R APID STREP SCR ####[address] [place] [address] Performed By: #### T ROPONIN I ####[address] [place] [address] UA w reflex C&Son 07-17-2017 Urine, bacteria in sediment 1+ Abnormal [facility] Comment on above: Performed By: #### U A w reflex C&S ####[address] [place] [address] Urine, crystals in sediment NONE SEEN Normal NONE SEEN [facility] Comment on above: Performed By: #### U A w reflex C&S ####[address] [place] [address] Erythrocytes (RBC) 0-4/HPF Normal NONE SEEN [facility] Comment on above: Performed By: #### U A w reflex C&S ####[address] [place] [address] WBC (Leukocytes) 0-4/HPF Normal NONE SEEN [facility] Comment on above: Performed By: #### U A w reflex C&S ####[address] [place] [address] Urine, casts in sediment NONE SEEN Normal NONE SEEN [facility] Comment on above: Performed By: #### U A w reflex C&S ####[address] [place] [address] Urine, epithelial cells in sediment Negative Normal NEGATIVE [facility] Comment on above: Performed By: #### U A w reflex C&S ####[address] [place] [address] Urine, mucus presence in sediment Negative Normal NEGATIVE [facility] Comment on above: Performed By: #### U A w reflex C&S ####[address] [place] [address] Reflex Culture? URINE CULTURE REFLEXED Normal [facility] Comment on above: Performed By: #### U A w reflex C&S ####[address] [place] [address] Urine, leukocyte esterase presence Negative Normal NEGATIVE [facility] Comment on above: Performed By: #### U A w reflex C&S ####[address] [place] [address] Urine, nitrite presence Negative Normal NEGATIVE [facility] Comment on above: Performed By: #### U A w reflex C&S ####[address] [place] [address] Urobilinogen, Dipstick 0.2 Normal 0.2 - 1.0 [facility] Comment on above: Performed By: #### U A w reflex C&S ####[address] [place] [address] Protein, Qual Negative Normal NEGATIVE [facility] Comment on above: Performed By: #### U A w reflex C&S ####[address] [place] [address] Urine, pH 6.0 [pH] Normal 5.0 - 9.0 [facility] Comment on above: Performed By: #### U A w reflex C&S ####[address] [place] [address] Blood, Dipstick TRACE Abnormal NEGATIVE [facility] Comment on above: Performed By: #### U A w reflex C&S ####[address] [place] [address] Urine, specific gravity <1.005 Abnormal 1.005 - 1.030 [facility] Comment on above: Performed By: #### U A w reflex C&S ####[address] [place] [address] Bilirubin (direct) Negative Normal NEGATIVE [facility] Comment on above: Performed By: #### U A w reflex C&S ####[address] [place] [address] Glucose mass conc Negative Normal NEGATIVE [facility] Comment on above: Performed By: #### U A w reflex C&S ####[address], [place] [id number] Ketone, Dipstick Negative Normal NEGATIVE [facility] Comment on above: Performed By: #### U A w reflex C&S ####[address], [place] [id number] Urine, character CLEAR Normal CLEAR [facility] Comment on above: Performed By: #### U A w reflex C&S ####[address], [place] [id number] Urine, color YELLOW Normal [facility] Comment on above: Performed By: #### U A w reflex C&S ####[address] [place], [place] [id number] Vital Signs Date Time Vital Sign Value Performing Clinician Facility 07-16-2024 11:30-0500 Body height 180.3 cm Gita Watts Work Phone: [facility] 07-16-2024 11:30-0500 Body mass index (BMI) [Ratio] 32.36 kg/m2 Gita Watts DO Work Phone: [facility] 07-16-2024 11:30-0500 Body weight 105.23 kg Gita Watts DO Work Phone: [facility] 07-16-2024 11:30-0500 Diastolic blood pressure 72 mm[Hg] Gita Watts DO Work Phone: [facility] 07-16-2024 11:30-0500 Heart rate 75 /min Gita Watts DO Work Phone: [facility] 07-16-2024 11:30-0500 Systolic blood pressure 142 mm[Hg] Gita Watts DO Work Phone: [facility] 06-26-2024 11:29-0400 Body mass index (BMI) [Ratio] 33.13 kg/m2 Alea Brown MD Work Phone: [facility] 06-26-2024 11:29-0400 Body weight 104.74 kg Alea Mckenzie MD Work Phone: [facility] 06-26-2024 11:29-0400 Diastolic blood pressure 93 mm[Hg] Alea Mckenzie MD Work Phone: [facility] 06-26-2024 11:29-0400 Heart rate 65 /min Alea Mckenzie MD Work Phone: [facility] 06-26-2024 11:29-0400 Systolic blood pressure 162 mm[Hg] Alea Mckenzie MD Work Phone: [facility] 06-10-2024 11:24-0400 Body height 177.8 cm Leeann Castillo [employer]TER[employer]RATION AGENT Work Phone: [facility] 06-10-2024 11:24-0400 Body mass index (BMI) [Ratio] 33.29 kg/m2 Leeann Castillo [employer]RATION [employer]ENT Work Phone: [facility] 06-10-2024 11:24-0400 Body temperature 97.81 [degF] Leeannsteph Castillo [employer]TER[employer]RATION AGENT Work Phone: [facility] 06-10-2024 11:24-0400 Body weight 105.23 kg Leeann Castillo [employer]RATION [employer]ENT Work Phone: [facility] 06-10-2024 11:24-0400 Diastolic blood pressure 60 mm[Hg] Leeann Castillo [employer]RATION [employer]ENT Work Phone: [facility] 06-10-2024 11:24-0400 Heart rate 74 /min Leeann Castillo [employer]RATION [employer]ENT Work Phone: [facility] 06-10-2024 11:24-0400 Respiratory rate 18 /min Leeann Castillo [employer]RATION [employer]ENT Work Phone: [facility] 06-10-2024 11:24-0400 SaO2% (BldA) [Mass fraction] 97 % Leeann Castillo [employer]RATION AGENT Work Phone: [facility] 06-10-2024 11:24-0400 Systolic blood pressure 128 mm[Hg] Leeann Castillo [employer]RATION [employer]ENT Work Phone: [facility] 01-22-2024 14:17-0400 Body height 180.3 cm Gita Watts DO Work Phone: [facility] 01-22-2024 14:17-0400 Body mass index (BMI) [Ratio] 34.31 kg/m2 Gita Watts DO Work Phone: [facility] 01-22-2024 14:17-0400 Body weight 111.58 kg Gita Watts DO Work Phone: [facility] 01-22-2024 14:17-0400 Diastolic blood pressure 78 mm[Hg] Gita Watts DO Work Phone: [facility] 01-22-2024 14:17-0400 Heart rate 72 /min Gita Watts DO Work Phone: [facility] 01-22-2024 14:17-0400 Systolic blood pressure 152 mm[Hg] Gita Watts DO Work Phone: [facility] 11-26-2023 09:59-0400 Body height 177.8 cm Ashley Namton PA Work Phone: [facility] 11-26-2023 09:59-0400 Body mass index (BMI) [Ratio] 36.3 kg/m2 Ashley Jennifer PA Work Phone: [facility] 11-26-2023 09:59-0400 Body weight 114.76 kg Ashley Jennifer PA Work Phone: [facility] 11-26-2023 09:59-0400 Diastolic blood pressure 71 mm[Hg] Ashley Jennifer PA Work Phone: [facility] 11-26-2023 09:59-0400 Heart rate 70 /min Ashley Rodriguez [facility] 11-26-2023 09:59-0400 Systolic blood pressure 112 mm[Hg] Ashley Rodriguez PA [facility]: [facility] 11-15-2023 13:54-0400 Body height 177.8 cm Leeannsteph Castillo [employer]RATION [employer]ENT Work Phone: [facility] 11-15-2023 13:54-0400 Body mass index (BMI) [Ratio] 36.3 kg/m2 Leeann Castillo [employer]RATION AGENT Work Phone: [facility] 11-15-2023 13:54-0400 Body temperature 97.7 [degF] Leeann Castillo [employer]RATION [employer]ENT Work Phone: [facility] 11-15-2023 13:54-0400 Body weight 114.76 kg Leeann Castillo [employer]RATION [employer]ENT Work Phone: [facility] 11-15-2023 13:54-0400 Diastolic blood pressure 67 mm[Hg] Leeann Castillo K[employer]ENT Work Phone: [facility] 11-15-2023 13:54-0400 Heart rate 68 /min Leeann Castillo [employer]RATION [employer]ENT Work Phone: [facility] 11-15-2023 13:54-0400 Respiratory rate 20 /min Leeann Castillo [employer]RATION [employer]ENT Work Phone: [facility] 11-15-2023 13:54-0400 SaO2% (BldA) [Mass fraction] 98 % Leeannsteph Castillo K[employer]RATION AGENT Work Phone: [facility] 11-15-2023 13:54-0400 Systolic blood pressure 118 mm[Hg] Leeann Castillo [employer]RATION AGENT Work Phone: [facility] 11-01-2023 13:32-0500 Body height 177.8 cm Bobbi Steen MD Work Phone: [facility] 11-01-2023 13:32-0500 Body mass index (BMI) [Ratio] 35.58 kg/m2 Bobbi Steen MD Work Phone: [facility] 11-01-2023 13:32-0500 Body weight 112.49 kg Bobbi Steen MD Work Phone: [facility] 11-01-2023 13:32-0500 Diastolic blood pressure 82 mm[Hg] Bobbi Steen MD Work Phone: [facility] 11-01-2023 13:32-0500 Heart rate 72 /min Bobbi Steen MD Work Phone: [facility] 11-01-2023 13:32-0500 Systolic blood pressure 131 mm[Hg] Bobbi Steen MD Work Phone: [facility] 10-17-2023 12:39-0500 Body height 180.3 cm Chip Gavin K[employer]RATION AGENT Work Phone: [facility] 10-17-2023 12:39-0500 Body mass index (BMI) [Ratio] 34.73 kg/m2 Chip Gavin KNOTTER[employer]RATION AGENT Work Phone: [facility] 10-17-2023 12:39-0500 Body weight 112.95 kg Chip Gavin K[employer]TER[employer]RATION AGENT Work Phone: [facility] 10-17-2023 12:39-0500 Diastolic blood pressure 82 mm[Hg] Chip Gavin KNOTTER[employer]RATION AGENT Work Phone: [facility] 10-17-2023 12:39-0500 Heart rate 76 /min Chip Gavin KNOTTER[employer]RATION AGENT Work Phone: [facility] 10-17-2023 12:39-0500 Systolic blood pressure 142 mm[Hg] Chip Gavin KNOTTER-MIGRATION AGENT Work Phone: [facility] 10-15-2023 14:36-0500 Body height 180.3 cm Veronica Kuns KNOTTER-FREIGHT TEAM ASSOCIATE Work Phone: [facility] 10-15-2023 14:36-0500 Body mass index (BMI) [Ratio] 34.61 kg/m2 Veronica GANDARAFREIGHT TEAM ASSOCIATE Work Phone: [facility] 10-15-2023 14:36-0500 Body temperature 97.3 [degF] Veronica De Jesus APRN-FREIGHT TEAM ASSOCIATE Work Phone: [facility] 10-15-2023 14:36-0500 Body weight 112.49 kg Veronica De Jesus APRN-FREIGHT TEAM ASSOCIATE Work Phone: [facility] 10-15-2023 14:36-0500 Diastolic blood pressure 68 mm[Hg] Veronica GANDARAFREIGHT TEAM ASSOCIATE Work Phone: [facility] 10-15-2023 14:36-0500 SaO2% (BldA) [Mass fraction] 95 % Veronica GANDARAFREIGHT TEAM ASSOCIATE Work Phone: [facility] 10-15-2023 14:36-0500 Systolic blood pressure 120 mm[Hg] Veronica GANDARAFREIGHT TEAM ASSOCIATE Work Phone: [facility] 10-09-2023 12:00-0500 Body temperature 98.1 [degF] [facility] 10-09-2023 12:00-0500 Diastolic blood pressure 73 mm[Hg] [facility] 10-09-2023 12:00-0500 Heart rate 75 /min [facility] 10-09-2023 12:00-0500 Respiratory rate 18 /min [facility] 10-09-2023 12:00-0500 SaO2% (BldA) [Mass fraction] 98 % [facility] 10-09-2023 12:00-0500 Systolic blood pressure 123 mm[Hg] [facility] 10-09-2023 01:32-0500 Body weight 111.4 kg [facility] 10-06-2023 11:39-0500 Body height 177.8 cm [facility] 10-06-2023 10:53-0500 Diastolic blood pressure 97 mm[Hg] [facility] 10-06-2023 10:53-0500 Heart rate 79 /min [facility] 10-06-2023 10:53-0500 Respiratory rate 18 /min [facility] 10-06-2023 10:53-0500 SaO2% (BldA) [Mass fraction] 99 % [facility] 10-06-2023 10:53-0500 Systolic blood pressure 175 mm[Hg] [facility] 10-06-2023 04:04-0500 Body weight 113 kg [facility] 10-06-2023 04:00-0500 Body temperature 97.6 [degF] [facility] 10-04-2023 08:21-0500 Body height 180.34 cm [facility] 09-19-2023 13:09-0500 Body height 193 cm Yari Verhoff PA-C Work Phone: [facility] 09-19-2023 13:09-0500 Body mass index (BMI) [Ratio] 31.4 kg/m2 Yari Verhoff PA-C Work Phone: [facility] 09-19-2023 13:09-0500 Body weight 117.03 kg Yari Verhoff PA-C Work Phone: [facility] 09-19-2023 13:09-0500 Diastolic blood pressure 58 mm[Hg] Yari Verhoff PA-C Work Phone: [facility] 09-19-2023 13:09-0500 Heart rate 69 /min Yari Verhoff PA-C Work Phone: [facility] 09-19-2023 13:09-0500 Respiratory rate 20 /min Yari Verhoff PA-C Work Phone: [facility] 09-19-2023 13:09-0500 Systolic blood pressure 141 mm[Hg] Yari Verhoff PA-C Work Phone: [facility] 03-15-2023 15:53-0400 Body height 180.34 cm Tom Paniagua Work Phone: [facility] [facility] DO Work Phone: 03-15-2023 15:53-0400 Body mass index (BMI) [Ratio] 34.9 kg/m2 Tom Paniagua Work Phone: [facility] [address] DO Work Phone: 03-15-2023 15:53-0400 Body surface area Derived from formula 2.32 m2 Tom Paniagua Work Phone: [facility] [address] DO Work Phone: 03-15-2023 15:53-0400 Body weight 113.51 kg Tom Paniagua Work Phone: [facility] [address] DO Work Phone: 03-15-2023 15:53-0400 Diastolic blood pressure 60 mm[Hg] Tom Paniagua Work Phone: [facility] DO Work Phone: 03-15-2023 15:53-0400 Heart rate 75 /min Tom Paniagua Work Phone: [facility] [address] DO Work Phone: 03-15-2023 15:53-0400 Systolic blood pressure 132 mm[Hg] Tom Paniagua Work Phone: [facility] DO Work Phone: 01-04-2023 19:28-0400 Body height 180.3 cm Etta Oakes CNP Work Phone: [facility] 01-04-2023 19:28-0400 Body mass index (BMI) [Ratio] 33.91 kg/m2 Etta Oakes CNP Work Phone: [facility] 01-04-2023 19:28-0400 Body temperature 97.9 [degF] Etta Oakes CNP Work Phone: [facility] 01-04-2023 19:28-0400 Body weight 110.27 kg Etta Oakes CNP Work Phone: [facility] 01-04-2023 19:28-0400 Diastolic blood pressure 81 mm[Hg] Etta Oakes CNP Work Phone: [facility] 01-04-2023 19:28-0400 Heart rate 88 /min Etta Oakes CNP Work Phone: [facility] 01-04-2023 19:28-0400 Respiratory rate 16 /min Etta Oakes CNP Work Phone: [facility] 01-04-2023 19:28-0400 SaO2% (BldA) [Mass fraction] 97 % Etta Oakes CNP Work Phone: [facility] 01-04-2023 19:28-0400 Systolic blood pressure 137 mm[Hg] Etta Oakes CNP Work Phone: [facility] 07-06-2022 12:30-0400 Body height 181.61 cm Lula Del Rosario Other [employer] Other 07-06-2022 12:30-0400 Body mass index (BMI) [Ratio] 34.65 kg/m2 Lula Del Rosario Other [employer] Other 07-06-2022 12:30-0400 Body temperature 97.3 [degF] Lula Del Rosario Other [employer] Other 07-06-2022 12:30-0400 Body weight 114.31 kg Lula Del Rosario Other [employer] Other 07-06-2022 12:30-0400 Diastolic blood pressure 96 mm[Hg] Lula Del Rosario Other [employer] Other 07-06-2022 12:30-0400 SaO2% (BldA) [Mass fraction] 98 % Lula Del Rosario Other [employer] Other 07-06-2022 12:30-0400 Systolic blood pressure 154 mm[Hg] Lula Del Rosario Other [employer] Other 11-20-2021 19:15-0400 Diastolic blood pressure 94 mm[Hg] No Provider [facility] Work Phone: 11-20-2021 19:15-0400 Heart rate 99 /min No [facility] Work Phone: 11-20-2021 19:15-0400 Respiratory rate 16 /min No [facility] Work Phone: 11-20-2021 19:15-0400 SaO2% (BldA) [Mass fraction] 99 % No [facility] Work Phone: 11-20-2021 19:15-0400 Systolic blood pressure 191 mm[Hg] No [facility] Work Phone: 11-20-2021 14:56-0400 Body height 180.34 cm No [facility] Work Phone: 11-20-2021 14:56-0400 Body mass index (BMI) [Ratio] 34.2 kg/m2 No [facility] Work Phone: 11-20-2021 14:56-0400 Body temperature 98.2 [degF] No [facility] Work Phone: 11-20-2021 14:56-0400 Body weight 111.13 kg No [facility] Work Phone: Encounters Encounter Date Encounter Type Care Provider Facility Start: 07-16-2024 End: 07-16-2024 Office outpatient visit 25 minutes Gita Watts DO Work Phone: [facility] Comment on above: CAD, multiple vessel ; History of coronary artery bypass graft; History of PTCA; Mixed hyperlipidemia; Primary hypertension; Body mass index (BMI) of 32.0 to 32.9 in adult; Never smoked cigarettes; Type 2 diabetes mellitus without complication, with long-term current use of insulin (Multi); Anxiety Start: 07-03-2024 End: 07-03-2024 Telephone encounter Tim Ibrahim MD Work Phone: [facility] Start: 06-26-2024 End: 06-26-2024 ambulatory [facility] Start: 06-26-2024 End: 06-26-2024 Office outpatient visit 25 minutes Alea Mckenzie MD Work Phone: [facility] Adult [facility] Comment on above: Type 2 diabetes wendy itus with diabetic peripheral angiopathy without gangrene, with long-term current use of insulin ([facility]) (Primary Dx) Start: 06-10-2024 End: 06-10-2024 Emergency department patient visit [facility] Start: 06-10-2024 End: 06-10-2024 ambulatory [facility] Start: 06-10-2024 End: 06-10-2024 Office outpatient visit 40 minutes [facility] KNOTTER-MIGRATION AGENT Work Phone: [facility] Internal Medicine/Dede Morse MD Comment on above: Suspected cauda equi na syndrome (Primary Dx); Neck pain; Bilateral low back pain with sciatica, sciatica laterality unspecified, unspecified chronicity; Incontinence of feces, unspecified fecal incontinence type; B12 deficiency Start: 06-05-2024 End: 06-05-2024 Telephone encounter Pattie Santiago [facility] General [facility] Start: 06-02-2024 End: 06-02-2024 ambulatory MC CHATMAN Not Available Start: 05-19-2024 End: 05-19-2024 ambulatory MC CHATMAN Not Available Start: 05-01-2024 End: 05-01-2024 ambulatory RAJAN LANDAVERDE Not Available Start: 04-18-2024 End: 04-18-2024 ambulatory MC CHATMAN Not Available Start: 04-11-2024 End: 04-11-2024 ambulatory MC CHATMAN Not Available Start: 04-07-2024 End: 04-07-2024 ambulatory MC Rojo VIDYA Not Available Start: 04-03-2024 End: 04-03-2024 ambulatory VANESSA TERAN [facility] Start: 04-02-2024 End: 04-02-2024 ambulatory [facility] Start: 03-31-2024 End: 03-31-2024 ambulatory [facility] Start: 03-27-2024 End: 04-03-2024 ambulatory [facility] Start: 03-26-2024 End: 04-03-2024 ambulatory [facility] Start: 03-24-2024 End: 04-03-2024 ambulatory [facility] Start: 03-20-2024 End: 03-20-2024 ambulatory [facility] Start: 03-19-2024 End: 03-19-2024 ambulatory [facility] Start: 03-17-2024 End: 03-17-2024 ambulatory [facility] Start: 03-15-2024 End: 03-15-2024 Emergency department patient visit Skyler Shankar steph Facility:[facility] Start: 03-14-2024 End: 03-14-2024 ambulatory [facility] Start: 03-14-2024 End: 03-14-2024 ambulatory [facility] Start: 03-13-2024 End: 03-13-2024 ambulatory [facility] Start: 03-12-2024 End: 03-12-2024 ambulatory [facility] Start: 03-10-2024 End: 03-10-2024 ambulatory [facility] Start: 03-05-2024 End: 03-05-2024 ambulatory [facility] Start: 03-03-2024 End: 03-03-2024 ambulatory [facility] Start: 02-27-2024 End: 03-03-2024 ambulatory [facility] Start: 02-25-2024 End: 02-25-2024 ambulatory [facility] Start: 02-21-2024 End: 03-03-2024 ambulatory [facility] Start: 02-20-2024 End: 03-03-2024 ambulatory [facility] Start: 02-18-2024 End: 02-18-2024 ambulatory [facility] Start: 02-14-2024 End: 02-14-2024 ambulatory [facility] Start: 02-13-2024 End: 02-13-2024 ambulatory [facility] Start: 02-11-2024 End: 02-11-2024 ambulatory [facility] Start: 02-07-2024 End: 02-07-2024 ambulatory [facility] Start: 02-06-2024 End: 02-06-2024 ambulatory [facility] Start: 02-06-2024 End: 02-06-2024 ambulatory [facility] Start: 02-04-2024 End: 02-04-2024 ambulatory [facility] Start: 01-31-2024 End: 01-31-2024 ambulatory [facility] Start: 01-30-2024 End: 01-30-2024 ambulatory [facility] Start: 01-23-2024 End: 02-02-2024 ambulatory [facility] Start: 01-22-2024 End: 01-22-2024 ambulatory [facility] Start: 01-22-2024 End: 01-22-2024 Office outpatient visit 25 minutes Gita [facility] DO Work Phone: [facility] Comment on above: CAD, multiple vessel ; Obesity (BMI 30-39.9); Primary hypertension; Type 2 diabetes mellitus without complication, with long-term current use of insulin (Multi); Depression, unspecified depression type; Old DC (myocardial infarction); History of PTCA; Anxiety; Mixed hyperlipidemia Start: 01-21-2024 End: 01-21-2024 [facility] Start: 01-17-2024 End: 01-17-2024 ambulatory [facility] Start: 01-16-2024 End: 01-16-2024 ambulatory [facility] Start: 01-14-2024 End: 01-14-2024 [facility] Start: 01-10-2024 End: 01-10-2024 ambulatory [facility] Start: 01-09-2024 End: 01-09-2024 ambulatory IAN CHATMAN Not Available Start: 01-09-2024 End: 01-09-2024 [facility] Start: 01-07-2024 End: 01-07-2024 [facility] Start: 01-02-2024 End: 02-02-2024 ambulatory BOBBI STEEN [facility] Start: 12-31-2023 End: 12-31-2023 ambulatory [facility] Start: 12-31-2023 End: 12-31-2023 ambulatory [facility] Start: 12-27-2023 End: 12-27-2023 ambulatory [facility] Start: 12-26-2023 End: 12-26-2023 ambulatory [facility] Start: 12-24-2023 End: 12-24-2023 ambulatory [facility] Start: 12-19-2023 End: 01-02-2024 ambulatory [facility] Start: 12-17-2023 End: 12-17-2023 ambulatory [facility] Start: 12-14-2023 End: 12-14-2023 ambulatory [facility] Start: 12-14-2023 End: 12-14-2023 ambulatory [facility] Start: 12-11-2023 End: 12-11-2023 ambulatory SHOBHA Ngozi DELONG [facility] Start: 12-07-2023 Orders Only Shobha ozuna KNOTTER-MIGRATION AGENT Work Phone: [facility] Comment on above: Type 2 diabetes wendy itus with diabetic peripheral angiopathy without gangrene, with long-term current use of insulin ([facility]) (Primary Dx) Start: 12-06-2023 End: 12-06-2023 ambulatory [facility] Start: 12-05-2023 Telephone encounter Alea mkceon MD Work Phone: [facility] Start: 12-03-2023 End: 01-02-2024 ambulatory BOBBI STEEN [facility] Start: 11-28-2023 Telephone encounter Cl Gonzalez [facility] Start: 11-27-2023 Telephone encounter Leeann shankar KNOTTER-MIGRATION AGENT Work Phone: [facility]/Dede Morse MD Start: 11-26-2023 End: 11-26-2023 ambulatory MC S RUSHER Not Available Start: 11-26-2023 End: 11-26-2023 Office outpatient new 45 minutes Ashley YOUNG Work Phone: [facility] Comment on above: Numbness in both leg s; History of urinary retention Start: 11-26-2023 End: 11-26-2023 ambulatory ASHLEY RODRIGUEZ [facility] Start: 11-23-2023 End: 11-23-2023 ambulatory MC S RUSHER Not Available Start: 11-22-2023 Telephone encounter Shobha esparza KNOTTER-MIGRATION AGENT Work Phone: [facility] Start: 11-19-2023 Telephone encounter Leeann shankar KNOTTER-MIGRATION AGENT Work Phone: [facility]/Dede Morse MD Start: 11-16-2023 End: 11-16-2023 ambulatory [facility] Start: 11-15-2023 End: 11-15-2023 Office outpatient new 45 minutes [facility] KNOTTER-MIGRATION AGENT Work Phone: [facility] Internal [facility]/Dede Morse MD Comment on above: Type 2 diabetes wendy itus with diabetic peripheral angiopathy without gangrene, with long-term current use of insulin ([facility]) (Primary Dx); OSEI (dyspnea on exertion); Bilateral lower extremity edema; RUQ abdominal pain; Tendinopathy of left rotator cuff; Mixed hyperlipidemia; Screening PSA (prostate specific antigen); Primary hypertension; CAD, multiple vessel; ST elevation myocardial infarction (STEMI) of inferior wall (CMS-HCC); Moderate episode of recurrent major depressive disorder (CMS-HCC) Start: 11-15-2023 End: 11-15-2023 ambulatory [facility] Start: 11-06-2023 End: 12-03-2023 ambulatory [facility] Start: 11-01-2023 End: 11-01-2023 Postop follow up visit related to original px Bobbi Steen MD Work Phone: [facility] NeuroSurgery Comment on above: Numbness in both leg s (Primary Dx); Lumbar pain Start: 11-01-2023 End: 11-01-2023 ambulatory [facility] Start: 10-24-2023 End: 10-24-2023 ambulatory CHIP GAVIN [facility] Start: 10-17-2023 End: 10-17-2023 Office outpatient visit 25 minutes Chip Gavin KNOTTER-MIGRATION AGENT Work Phone: [facility] Comment on above: CAD, multiple vessel (Primary Dx); Primary hypertension; Mixed hyperlipidemia; Ischemic cardiomyopathy; Type 2 diabetes mellitus without complication, with long-term current use of insulin ([facility]); Obesity (BMI 30-39.9); Major psychotic depression, recurrent (CMS/HCC); Moderate episode of recurrent major depressive disorder (CMS/HCC) Start: 10-17-2023 End: 10-17-2023 ambulatory [facility] Amb[facility] Start: 10-15-2023 End: 10-15-2023 Transitional care manage srvc 7 day discharge Veronica De Jesus KNOTTER-FREIGHT TEAM ASSOCIATE Work Phone: [facility] - [facility] Medicine Comment on above: Status post lumbar l aminectomy (Primary Dx); Chronic diastolic CHF (congestive heart failure) ([facility]); ST elevation myocardial infarction (STEMI) of inferior wall ([facility]); Type 2 diabetes mellitus with diabetic peripheral angiopathy without gangrene, with long-term current use of insulin ([facility]); Primary hypertension; History of urinary retention; Other constipation Start: 10-15-2023 End: 10-15-2023 ambulatory SADAF [facility] Start: 10-06-2023 Non-patient / Non-visit [facility] Out[facility] Work Phone: Start: 10-06-2023 End: 10-09-2023 Evaluation and management of inpatient Myrna Laisha Facility:[facility] Start: 09-26-2023 Non-patient / Non-visit [facility] Work Phone: Start: 09-26-2023 End: 10-06-2023 Evaluation and management of inpatient [facility] Carolina Portillo Facility:[facility] Start: 09-26-2023 End: 09-26-2023 Evaluation and management of inpatient [facility] Start: 09-24-2023 Telephone encounter Gilles Dominguez PA-C Work Phone: [facility] Comment on above: Hospital Follow-up Start: 09-22-2023 End: 09-26-2023 Evaluation and management of inpatient CHRIS F DAVID [facility] Start: 09-21-2023 End: 09-26-2023 Evaluation and management of inpatient BOBBI STEEN [facility] Start: 09-21-2023 End: 09-21-2023 ambulatory [facility] Start: 09-20-2023 End: 09-26-2023 ambulatory POLLY BELL [facility] Start: 09-20-2023 End: 09-26-2023 ambulatory POLLY BELL [facility] Start: 09-20-2023 End: 09-26-2023 ambulatory NATHAN HECTOR [facility] Start: 09-20-2023 Encounter for other preprocedural examination [facility] Start: 09-20-2023 End: 09-26-2023 Evaluation and management of inpatient [facility] Start: 09-19-2023 End: 09-21-2023 Emergency department patient visit MUKUL MAXIME [facility] Start: 09-19-2023 End: 09-20-2023 Emergency department patient visit [facility] Start: 09-19-2023 End: 09-19-2023 Patient encounter procedure Wade YOUNG Work Phone: [facility] Comment on above: Spinal stenosis of l umbar region without neurogenic claudication Start: 09-19-2023 End: 09-19-2023 ambulatory YARI PETER [facility] Start: 09-19-2023 End: 09-21-2023 Emergency department patient visit SCOTT SANTOS [facility] Start: 09-17-2023 End: 09-17-2023 ambulatory [facility] Start: 09-14-2023 End: 09-14-2023 ambulatory [facility] Start: 09-13-2023 Refill Gisselle Dominic TAYLOR sp[facility] Internal Medicine - Family Medicine Comment on above: Type 2 diabetes wendy itus with diabetic peripheral angiopathy without gangrene, with long-term current use of insulin ([facility]) Start: 09-11-2023 End: 09-11-2023 ambulatory [facility] Start: 09-04-2023 End: 10-04-2023 ambulatory TOM L YUHAS [facility] Start: 08-10-2023 End: 09-03-2023 ambulatory TOM PANIAGUA [facility] Start: 04-26-2023 Patient encounter procedure Tom Paniagua Work Phone: [facility] Work Phone: Start: 03-15-2023 Office outpatient vi sit 25 minutes Tom Ruckeralia Work Phone: [facility] DO Work Phone: Start: 03-15-[address] Tom Paniagua Facility: Start: 01-04-2023 End: 01-08-2023 ambulatory [facility] Start: 01-04-2023 End: 01-04-2023 Office outpatient new 20 minutes [facility] MIGRATION AGENT Work Phone: [facility] [place] Comment on above: Cough, unspecified t ype (Primary Dx) Start: 09-27-2022 End: 09-27-2022 ambulatory Lula Del Rosario Other [employer] Other Start: 09-27-2022 Telephone encounter Lula Del Rosario [facility] Start: 07-06-2022 Office outpatient vi sit 25 minutes Lula Del Rosario [facility] Start: 07-06-2022 End: 07-06-2022 ambulatory DO Tom Paniagua Work Phone: [facility] [employer] Other Start: 07-06-2022 End: 07-06-2022 Patient encounter procedure DO Tom Paniagua Work Phone: [facility] Start: 04-03-2022 End: 04-04-[address] TOM PANIAGUA Facility:[facility] Start: 12-19-2021 End: 12-20-[address] TOM PANIAGUA Facility:[facility] Start: 12-18-2021 End: 12-18-[address] CHAN GAVIN Facility:[facility] Start: 11-20-2021 End: 11-20-2021 Emergency department patient visit No Provider [facility] Start: 10-04-[address] TOM PANIAGUA Facility: [facility] Start: 09-09-2021 End: 09-09-[address] TOM PANIAGUA Facility:[facility] Start: 08-02-2021 End: 08-02-[address] TOM PANIAGUA Facility:[facility] Start: 07-21-2021 End: 07-22-[address] TOM PANIAGUA Facility:[facility] Start: 06-23-2021 End: 06-24-[address] TOM PANIAGUA Facility:[facility] Start: 06-07-2021 End: 06-08-[address] TOM PANIAGUA Facility:[facility] Start: 04-15-2021 End: 04-16-[address] TOM PANIAGUA Facility:[facility] Start: 04-08-2021 End: 04-09-[address] TOM PANIAGUA Facility:[facility] Start: 05-20-2020 End: 05-20-2020 Subsequent hospital visit by physician Barbara [facility] Work Phone: Radiology Comment on above: Primary osteoarthrit is of right knee [M17.11] Start: 04-26-2020 End: 04-26-2020 Subsequent hospital visit by physician Barbara Kraus 1 Work Phone: Radiology Comment on above: Nuclear senile catar act, unspecified laterality [H25.10] Start: 11-08-2018 End: 11-13-2018 Evaluation and management of inpatient [facility] Start: 11-08-2018 Emergency department patient visit [facility] Start: 07-31-2017 Ambulatory KARRI BARAKAT [facility] Start: 07-17-2017 End: 07-19-2017 Ambulatory CHAN ROMAN Facility:[facility] Start: 07-17-2017 End: 07-18-2017 Emergency department patient visit CHAN ROMAN Facility:[facility] Procedures Date Procedure Procedure Detail Performing Clinician Start: 06-26-2024 Hemoglobin glycosylated a1c Alea Mckenzie MD Work Phone: Start: 06-10-2024 Adult depression scr eening assessment Leeann Castillo KNOTTER-MIGRATION AGENT Work Phone: Start: 03-14-2024 Adult depression scr eening assessment Pattie Santiago Start: 01-22-2024 History of percutane ous transluminal coronary angioplasty History of PTCA Gita Alia Mac DO Work Phone: Start: 11-26-2023 Urnls dip stick/tabl et rgnt auto w/o microscopy Ashley YOUNG Work Phone: Start: 11-26-2023 MEASURE POST VOID RESIDUAL Ashley YOUNG Work Phone: Start: 11-15-2023 Follow-up visit Follow-up LEEANN CASTILLO Start: 10-15-2023 Adult depression scr eening assessment Veronica De Jesus KNOTTER-FREIGHT TEAM ASSOCIATE Work Phone: Start: 09-20-2023 Adult depression scr eening assessment Gilles [employer]ONTEN[employer]C Work Phone: Start: 09-19-2023 Gluc bld gluc mntr d ev cleared fda spec home use Yari Peter PAMatiC Work Phone: Start: 09-11-2023 Adult depression scr eening assessment Gisselle Dominic [employer]OR REPA[employer] Start: 08-30-2023 History of coronary artery bypass grafting History of coronary artery bypass graft Chip Gavin KNOTTER-MIGRATION AGENT Work Phone: Start: 01-04-2023 Radiologic exam ches t 2 views Etta Oakes MIGRATION AGENT Work Phone: Start: 10-11-2022 Microalbumin [Mass/v olume] in Urine by Test strip Etta Oakes MIGRATION AGENT Work Phone: Start: 05-20-2020 Radiologic examinati on knee 3 views Alcon [employer]ONT[employer] Work Phone: Start: 04-01-2020 Antibody screen Comment on above: Performed By: #### T [id number] #### [place] [address] Start: 11-13-2018 DISCHARGE PATIENT FACUNDO MONROE Start: 11-09-2018 Assay of free thyroxine MELODIE POP Start: 11-09-2018 Assay of thyroid stimulating hormone tsh MELODIE POP Start: 11-09-2018 Blood count complete auto&auto difrntl wbc MELODIE POP Start: 11-09-2018 Hemoglobin glycosylated a1c MELODIE POP Start: 11-09-2018 [facility] Start: 11-09-2018 Lipid 1996 panel - S jason or Plasma Xr 1 Work Phone: Start: 11-08-2018 DIET GENERAL [facility] Start: 11-08-2018 Drug screen class list a MELODIE POP Start: 11-08-2018 FULL CODE MELODIE POP Start: 11-08-2018 IP CONSULT TO HOSPITALIST MELODIE MONROE Start: 11-08-2018 MONITOR MELODIE MONROE Start: 11-08-2018 PATIENT STATUS (DIRECT) MELODIE MONROE Start: 11-08-2018 TOBACCO CESSATION EDUCATION [facility] Start: 11-08-2018 VITAL SIGNS MELODIE POP Start: 11-08-2018 PATIENT STATUS (DIRECT) MELODIE MONROE Start: 06-28-2011 History of coronary artery bypass grafting S/P CABG (coronary artery bypass graft) Xr 1 Work Phone: Start: 05-05-2011 H/O: surgery Other states following surgery of eye and adnexa Xr 1 Work Phone: Arthroplasty of knee Tom Paniagua Work Phone: Biopsy of skin Tom Paniagua Work Phone: Cataract surgery Tom rojo Work Phone: Coronary artery bypa ss graft Tom Paniagua Work Phone: History of coronary artery bypass grafting History of coronary artery bypass graft Tom Paniagua Work Phone: History of coronary artery bypass grafting History of coronary artery bypass graft x 3 History of coronary artery bypass grafting History of coronary artery bypass graft Gita Watts DO Work Phone: History of percutane ous transluminal coronary angioplasty History of PTCA Gita Watts DO Work Phone: Operation on mouth Tom hood Work Phone: Repair of musculoten dinous cuff of shoulder Tom Paniagua Work Phone: Surgical procedure o n eye proper Tom Paniagua Work Phone: Total colonoscopy Tom Diaz as Work Phone: Plan of Treatment Date Care Activity Detail Author Start: 2032 RSV Vaccine (1 - 1-dose 75+ series) RSV Vaccine (1 - 1-dose 75+ series) [facility] Start: 06-26-2025 Adult BMI Screening Adult BMI Screening [facility] Start: 06-26-2025 Tobacco Screening Tobacco Screening [facility] Start: 06-10-2025 Adult BMI Screening Adult BMI Screening [facility] Start: 06-10-2025 Depression Screening Depression Screening [facility] Start: 06-10-2025 Tobacco Screening Tobacco Screening [facility] Start: 04-03-2025 Adult BMI Screening Adult BMI Screening [facility] Start: 04-03-2025 Tobacco Screening Tobacco Screening [facility] Start: 03-19-2025 End: 03-19-2025 Patient encounter procedure 03/19/2025 11:20 AM EDT Office Visit [facility] [address] [place] [address] Gita Watts DO [address] [place] [address] [facility] Start: 03-14-2025 Depression Screening Depression Screening [facility] Start: 01-14-2025 End: 01-14-2025 Patient encounter procedure 01/14/2025 11:15 AM EDT [facility] [address] [place] [address] Alea Mckenzie MD [address] [place] [address] [facility] Start: 12-30-2024 Fall Risk Screening [facility] Start: 12-05-2024 Adult BMI Screening Adult [facility]ening [facility] Start: 12-01-2024 Tobacco Screening Tobacco Screening [facility] Start: 11-25-2024 Adult BMI Screening Adult [facility]ening [facility] Start: 11-25-2024 [facility] System Start: 11-14-2024 Adult BMI Screening Adult [facility] Start: 10-31-2024 Adult BMI Screening Adult [facility] Screening [facility] Start: 10-31-2024 Tobacco Screening Tobacco Screening [facility] Start: 10-17-2024 End: 10-17-2024 Patient encounter procedure 10/17/2024 10:45 AM EST Office Visit [facility] [address] [place] [address] Shobha Delong, KNOTTER-M[employer]RATION AGENT [address] [place] [address] [facility] Start: 10-15-2024 Adult BMI Screening Adult BMI Screening [facility] Start: 10-15-2024 Depression Screening Depression Screening [facility] Start: 10-15-2024 Fall Risk Screening Fall Risk Screening [facility] Start: 10-15-2024 Tobacco Screening [facility] Start: 10-06-2024 Echocardiography [facility] Start: 09-25-2024 Adult BMI Screening [facility] Start: 09-21-2024 Tobacco Screening [facility] Start: 09-20-2024 Depression Screening Depression Screening [facility] Start: 09-19-2024 Adult BMI Screening [facility] Start: 09-19-2024 Tobacco Screening [facility] Start: 09-11-2024 Adult BMI Screening [facility] Start: 09-11-2024 Depression Screening Depression Screening [facility] Start: 09-11-2024 Fall Risk Screening Fall Risk Screening [facility] Start: 09-11-2024 Tobacco Screening Tobacco Screening [facility] Start: 08-07-2024 Diabetic foot examination Diabetic Foot Exam [facility] Start: 07-30-2024 End: 07-30-2024 Patient encounter procedure 07/30/2024 10:30 AM EST Office Visit [facility] [address] [place] [address] [address] [facility] [place] [phone] Mary Orozco I, PA [address] [place] [address] [facility] Start: 07-16-2024 End: 07-16-2024 Patient encounter procedure 07/16/2024 11:20 AM EST Office Visit [facility] [address] [facility] [address] [place] [address] Gita Watts, [address] [facility] [address] [place] [address] [facility] Start: 06-11-2024 Screening for malignant neoplasm of colon [facility] Start: 06-10-2024 End: 06-10-2024 Patient encounter procedure 06/10/2024 1:45 PM EDT Office Visit [facility] [address] [facility] [address] [place] [address] Shobha Delong, K[employer] AGENT [address] [facility] [address] [place] [address] [facility] Start: 06-10-2024 End: 06-10-2024 Patient encounter procedure 06/10/2024 11:20 AM EDT Office Visit [facility] Internal [facility]/Dede Morse MD [address] [facility] [address] [place] [address] Leeann Castillo, K[employer] AGENT [address] [facility] [address] [place] [address] [facility]/Dede Morse MD Start: 05-04-2024 Covid-19 Vaccine ( season) Covid-19 Vaccine ( season) [facility] Start: 05-04-2024 Influenza vaccination [facility] Start: 04-22-2024 End: 04-22-2024 Patient encounter procedure 04/22/2024 3:30 PM EDT [facility] [address] [facility] [place] [phone] [facility] Start: 04-17-2024 Medicare Annual Wellness Visit Medicare Annual Wellness Visit [facility] Start: 02-06-2024 End: 02-06-2024 Patient encounter procedure 02/06/2024 3:15 PM EDT Office Visit [facility] [address] [place] [address] [address] [facility] [place] [address] Corin Blankenship MD [facility] [place] [address] [facility] Start: 01-22-2024 End: 01-22-2024 Patient encounter procedure 01/22/2024 1:50 PM EDT Office Visit [facility] [address] [facility] [address] [place] [address] Gita Watts DO [address] [facility] [address] [place] [address] [facility] Start: 12-16-2023 End: 10-17-2024 Alanine aminotransferase [Enzymatic activity/volume] in Serum or Plasma by With P-5'-P Alanine Aminotransferase Lab Routine Mixed hyperlipidemia Expected: 12/16/2023 (Approximate), Expires: 10/17/2024 [facility] Work Phone: Comment on above: Expected: 12/16/2023 (Approximate), Expi res: 10/17/2024 Start: 12-16-2023 End: 10-17-2024 Aspartate aminotransferase [Enzymatic activity/volume] in Serum or Plasma by With P-5'-P Aspartate Aminotransferase Lab Routine Mixed hyperlipidemia Expected: 12/16/2023 (Approximate), Expires: 10/17/2024 [facility] Work Phone: Comment on above: Expected: 12/16/2023 (Approximate), Expi res: 10/17/2024 Start: 12-16-2023 End: 10-17-2024 Lipid 1996 panel - Serum or Plasma Lipid Panel Lab Routine Mixed hyperlipidemia Expected: 12/16/2023 (Approximate), Expires: 10/17/2024 [facility] Work Phone: Comment on above: Expected: 12/16/2023 (Approximate), Expi res: 10/17/2024 Start: 12-14-2023 End: 12-14-2023 Patient encounter procedure [facility]/Dede Morse MD Start: 12-11-2023 End: 12-11-2023 Nutrition therapy 12/11/2023 3:00 PM EDT Support Visit [facility] [address] [place] [phone] Apolinar Mckenzie LD [facility] Start: 12-06-2023 End: 12-06-2023 Patient encounter procedure 12/06/2023 7:00 AM EDT Appointment [facility] [address] [place] [address] [facility] Start: 12-06-2023 Subsequent hospital visit by physician 12/06/2023 7:00 AM EDT Hospital Encounter [facility] [address] [place] [address] [facility] Start: 12-03-2023 End: 12-03-2023 Patient encounter procedure 12/03/2023 9:00 AM EDT Appointment [facility] [address] [place] [phone] [facility] Start: 11-26-2023 End: 11-26-2023 Patient encounter procedure 11/26/2023 10:00 AM EDT Office Visit [facility] [address] [place] [phone] Ashley Rodriguez PA [address] [place] [address] [facility] Start: 11-23-2023 End: 11-22-2024 NM Biliary ducts and Gallbladder Views for patency of biliary structures and ejection fraction W sincalide and W radionuclide IV NM hepatobiliary system imaging with pharmacologic agent Imaging Routine Biliary colic Expected: 11/23/2023, Expires: 11/22/2024 [facility] Work Phone: Comment on above: Expected: 11/23/2023, Expires: Start: 11-15-2023 End: 11-15-2023 Patient encounter procedure [facility]/Dede Morse MD Comment on above: Lumbar pain Start: 11-10-2023 Lipid panel Lipid Screening [facility] Start: 11-07-2023 End: 11-07-2023 Patient encounter procedure 11/07/2023 10:45 AM EST Office Visit [facility] [address] [facility] [address] [place] [address] Alea Mckenzie MD [address] [facility] [place] [address] [facility] Start: 11-01-2023 End: 10-31-2024 XR Lumbar spine Views AP W right bending and W left bending X-ray spine lumbar flexion and extension only 2 to 3 views Imaging Routine Lumbar pain Expected: 11/01/2023, Expires: 10/31/2024 [facility] Work Phone: Comment on above: Expected: 11/01/2023, Expires: Start: 11-01-2023 End: 11-01-2023 Patient encounter procedure 11/01/2023 1:30 PM EST Office Visit [facility] [address] [place] [phone] Bobbi Steen MD [address] [place] [address] [address] [place] [address] [facility] Start: 10-24-2023 End: 10-17-2024 Basic metabolic 2000 panel - Serum or Plasma Basic Metabolic Panel Lab Routine CAD, multiple vessel Primary hypertension Expected: 10/24/2023 (Approximate), Expires: 10/17/2024 [facility] Service Area Work Phone: Comment on above: Expected: 10/24/2023 (Approximate), Expi res: 10/17/2024 Start: 10-11-2023 Urine screening for protein [facility] Start: 10-09-2023 [facility] Start: 10-06-2023 [facility] Start: 10-06-2023 Referral to cardiac rehabilitation program [facility] Start: 10-06-2023 Hospital admission [facility] Start: 10-06-2023 End: 10-06-2023 [facility] Start: 10-02-2023 Referral to psychiatrist [facility] Start: 09-27-2023 End: 09-27-2023 Patient encounter procedure 09/27/2023 10:00 AM EST Office Visit [facility] [address] [facility] [address] Tom Paniagua DO [address] [facility] [place] [address] [facility] Start: 09-26-2023 Hospital admission [facility] Start: 09-26-2023 Referral to clinical medical office technician [facility] Start: 09-20-2023 End: 09-20-2023 Patient encounter procedure 09/20/2023 11:45 AM EST Office Visit [facility] [address] [place] [address] Alea Mckenzie MD [address] [place] [address] [facility] Start: 09-19-2023 FUV, Provider: Charan Bautista, Status: Pen, Time: 3:00 PM FUV, Provider: Charan Bautista, Status: Pen, Time: 3:[address] [facility] 250 DO Work Phone: Start: 09-19-2023 End: 09-19-2023 Patient encounter procedure 09/19/2023 1:00 PM EST Office Visit [facility] [address] [place] [address] Wade Damian PA [address] [place] [address] Yari Peter PA-C [address] [place] [address] [facility] Start: 09-03-2023 Advance Directive Discussion Advance Directive Discussion [facility] Start: 05-04-2023 COVID-19 Vaccine ( season) COVID-19 Vaccine ( season) [facility] Start: 05-04-2023 Influenza vaccination [facility] Start: 04-13-2023 Diabetes Screening Diabetes Screening [facility] Start: 02-16-2023 Hemoglobin A1c measurement A1C [facility] Start: 2022 Fall risk assessment Falls Risk Assessment [facility] Start: 2022 Pneumococcal Vaccine: 65+ (2 of 2 - PCV) Pneumococcal Vaccine: 65+ (2 of 2 - PCV) [facility] Start: 07-02-2020 Hemoglobin A1c measurement Diabetes: Hemoglobin A1C [facility] Start: 2017 Hepatitis B Vaccines (1 of 3 - Risk 3-dose series) Hepatitis B Vaccines (1 of 3 - Risk 3-dose series) [facility] Start: 2017 RSV High Risk: (Elderly (60+) or Population) (1 - Risk 60-74 years 1-dose series) RSV High Risk: (Elderly (60+) or Population) (1 - Risk 60-74 years 1-dose series) [facility] Start: 2017 RSV patients and/or patients aged 60+ years (1 - 1-dose 60+ series) RSV patients and/or patients aged 60+ years (1 - 1-dose 60+ series) [facility] Start: 2012 Prostate specific antigen measurement Prostate Cancer Screening Discussion [facility] Start: 09-14-2012 Pneumococcal Vaccine: 65+ Years (2 - PCV) Pneumococcal Vaccine: 65+ Years (2 - PCV) [facility] Start: 09-14-2012 Pneumococcal Vaccine: 65+ Years (2 of 2 - PCV) Pneumococcal Vaccine: 65+ Years (2 of 2 - PCV) [facility] Start: 09-14-2012 Pneumococcal Vaccine: Age 65+ (2 - PCV) Pneumococcal Vaccine: Age 65+ (2 - PCV) [facility] Start: 2007 Administration of herpes zoster vaccine Zoster Vaccines (1 of 2) [facility] Start: 2007 Administration of varicella zoster vaccine Zoster (Shingles) Vaccine (1 of 2) [facility] Start: 2007 Screening for malignant neoplasm of colon Flexible sigmoidoscopy [facility] Start: 2007 Shingrix Vaccine (1 of 2) Shingrix Vaccine (1 of 2) [facility] Start: 2007 Zoster Vaccines (1 of 2) Zoster Vaccines (1 of 2) [facility] Start: 2002 Screening for malignant neoplasm of colon [facility] Start: 1979 DTaP/Tdap/Td Vaccines (1 - Tdap) DTaP/Tdap/Td Vaccines (1 - Tdap) [facility] Start: 1976 DTaP,Tdap and Td Vaccines (1 - Tdap) DTaP,Tdap and Td Vaccines (1 - Tdap) [facility] Start: 1976 Hepatitis A Vaccines (1 of 2 - Risk 2-dose series) Hepatitis A Vaccines (1 of 2 - Risk 2-dose series) [facility] Start: 1976 Urine microalbumin profile DTaP,Tdap,Td Vaccine (1 - Tdap) [facility] Start: 1976 Urine screening for protein Diabetes: Urine Protein Screening [facility] Start: 1975 Adult BMI Follow Up Plan Adult BMI Follow Up Plan [facility] Start: 1975 Anxiety Screening Anxiety Screening [facility] Start: 1975 Depression Screening Depression Screening [facility] Start: 1975 Hepatitis C screening Hepatitis C Screening [facility] Start: 1972 HIV screening HIV Screening [facility] Start: 1969 Depression screening using PHQ-9 (Patient Health Questionnaire 9) score Depression Screening (PHQ-2/9) [facility] Start: 1967 Diabetic foot examination [facility] Start: 1967 Glaucoma screening [facility] Start: 1960 History and physical examination, annual for health maintenance Wellness Visit [facility] Start: 1958 MMR Vaccines (1 of 1 - Standard series) MMR Vaccines (1 of 1 - Standard series) [facility] Start: 03-23-1958 COVID-19 Vaccine (#1) COVID-19 Vaccine (#1) [facility] Start: 1957 Creatinine measurement Creatinine Level [facility] Start: 1957 Glaucoma screening Diabetic Ophthalmology Exam [facility] Start: 1957 Lipid panel Lipid Panel [facility] Start: 1957 Medicare Annual Wellness Visit Medicare Annual Wellness Visit (AWV) [facility] Start: 1957 Potassium measurement Potassium Level [facility] Start: 1957 Prostate specific antigen measurement PSA Level [facility] Start: 1957 Screening for malignant neoplasm of colon [facility] Start: 01-21-1958 Tetanus vaccination Tetanus: Every 10yrs [facility] aPTT in Platelet poo r plasma by Coagulation assay [facility] End: 12-06-2024 C-peptide C-peptide Lab Routine Type 2 diabetes mellitus with diabetic peripheral angiopathy without gangrene, with long-term current use of insulin ([facility]) 1 Occurrences starting 12/07/2023 until 12/06/2024 [facility] Work Phone: Comment on above: 1 Occurrences starting 12/07/2023 until 12/06/2024 End: 06-10-2025 Cyanocobalamin vitamin b-12 Vitamin B12 Lab Routine B12 deficiency 1 Occurrences starting 06/10/2024 until 06/10/2025 [facility] Work Phone: Comment on above: 1 Occurrences starting 06/10/2024 until 06/10/2025 INR in Platelet poor plasma by Coagulation assay [facility] Patient Education [facility] Work Phone: Patient referral [facility] Work Phone: Prothrombin time (PT) [facility] Immunizations Immunization Date Immunization Notes Care Provider Fa mode 06-03-2012 influenza virus vacc ine, unspecified formulation Tom Sully [employer] Work Phone: [facility] Work Phone: 09-14-2011 pneumococcal polysaccharide vaccine, 23 valent Tom Virk [employer] Work Phone: [facility] DO Work Phone: 06-03-2011 influenza virus vacc ine, unspecified formulation Tom Virk [employer] Work Phone: [facility] DO Work Phone: influenza virus vacc ine, unspecified formulation Tom Sully [employer] Work Phone: [facility] DO Work Phone: Comment on above: 2009 Payers Date Payer Category Payer Medicare (Managed Care) [employer] [id number] 09-03-2023 Medicare HMO [employer] [id number] 09-03-2023 Private Health Insurance 101 [id number] 02-01-2021 Medicare [id number] 12-02-2020 Unknown [id number] 09-03-2019 Unknown [id number]. 1.13.385.2. [id number] 01-08-2012 Unknown [id number] 09-03-1959 Medicare [id number] 09-03-1959 Self-pay [id number] 09-03-1959 Unknown [id number] 1957 Unknown [id number] 2.16.840.1.739568.3.579.2. 176 1957 Unknown [id number] 2.16.840.1.245895.3.579.2. 593 1957 Unknown [id number] 2.16.840.1.236386.3.579.2. 593 1957 Unknown [id number] 2.16.840.1.393088.3.579.2. 593 1957 Unknown [id number] 2.16.840.1.921387.3.579.2. 593 1957 Unknown [id number] 2.16.840.1.407919.3.579.2. 593 1957 Unknown [id number] 2.16.840.1.759632.3.579.2. 593 1957 Unknown [id number] 2.16.840.1.201393.3.579.2. 593 1957 Unknown [id number] 2.16.840.1.108138.3.579.2. 593 1957 Unknown [id number] 2.16.840.1.556643.3.579.2. 593 1957 Unknown [id number] 2.16.840.1.087992.3.579.2. 593 1957 Unknown [id number] 2.16.840.1.473064.3.579.2. 593 1957 Unknown [id number] 2.16.840.1.121590.3.579.2. 903 1957 Unknown [id number] 2.16.840.1.340271.3.579.2. 903 1957 Unknown [id number] 2.16.840.1.147430.3.579.2. 356 1957 Unknown [id number] 2.16.840.1.788501.3.579.2. 718 1957 Unknown [id number] 2.16.840.1.783343.3.579.2. 1285 1957 Unknown [id number] 2.16.840.1.898522.3.579.2. 1285 1957 Unknown [id number] 2.16.840.1.052659.3.579.2. 1285 1957 Unknown [id number] 2.16.840.1.670491.3.579.2. 1285 1957 Unknown [id number] 2.16.840.1.578720.3.579.2. 1285 1957 Unknown [id number] 2.16.840.1.440531.3.579.2. 1285 1957 Unknown [id number] 2.16.840.1.164801.3.579.2. 1285 1957 Unknown [id number] 2.16.840.1.306562.3.579.2. 1285 1957 Unknown [id number] 2.16.840.1.919346.3.579.2. 1285 1957 Unknown [id number] 2.16.840.1.339342.3.579.2. 1285 1957 Unknown [id number] 2.16.840.1.078646.3.579.2. 1285 1957 Unknown [id number] 2.16.840.1.306545.3.579.2. 1285 1957 Unknown [id number] 2.16.840.1.335735.3.579.2. 1285 1957 Unknown [id number] 2.16.840.1.919418.3.579.2. 1285 1957 Unknown [id number] 2.16.840.1.068434.3.579.2. 1285 1957 Unknown [id number] 2.16.840.1.274990.3.579.2. 1285 1957 Unknown [id number] 2.16.840.1.728292.3.579.2. 1285 1957 Unknown [id number] 2.16.840.1.865269.3.579.2. 1285 1957 Unknown [id number] 2.16.840.1.099918.3.579.2. 1285 1957 Unknown [id number] 2.16.840.1.457647.3.579.2. 1285 1957 Unknown [id number] 2.16.840.1.589448.3.579.2. 1285 1957 Unknown [id number] 2.16.840.1.741466.3.579.2. 1285 1957 Unknown [id number] 2.16.840.1.238953.3.579.2. 1285 1957 Unknown [id number] 2.16.840.1.722717.3.579.2. 1285 1957 Unknown [id number] 2.16.840.1.492225.3.579.2. 1285 1957 Unknown [id number] 2.16.840.1.985735.3.579.2. 1285 1957 Unknown [id number] 2.16.840.1.241263.3.579.2. 1285 1957 Unknown [id number] 2.16.840.1.465799.3.579.2. 1285 1957 Unknown [id number] 2.16.840.1.087402.3.579.2. 1285 1957 Unknown [id number] 2.16.840.1.877993.3.579.2. 1285 1957 Unknown [id number] 2.16840.1.860542.3.579.2. 1285 1957 Unknown [id number] 2.16840.1.413155.3.579.2. 1285 1957 Unknown [id number] 2.840.1.854473.3.579.2. 1285 1957 Unknown [id number] 2.840.1.070574.3.579.2. 1285 1957 Unknown [id number] 2.840.1.310384.3.579.2. 1285 1957 Unknown [id number] 2.840.1.191297.3.579.2. 1285 1957 Unknown [id number] 2.840.1.933143.3.579.2. 1285 1957 Unknown [id number] 2.840.1.282782.3.579.2. 1285 1957 Unknown [id number] 2.840.1.998230.3.579.2. 1285 1957 Unknown [id number] 2.840.1.095707.3.579.2. 1285 1957 Unknown [id number] 2.840.1.383761.3.579.2. 1285 1957 Unknown [id number] 2.840.1.281805.3.579.2. 1285 1957 Unknown [id number] 2.16840.1.384487.3.579.2. 1285 1957 Unknown [id number] 2.840.1.322094.3.579.2. 1285 1957 Unknown [id number] 2.840.1.562746.3.579.2. 1285 1957 Unknown [id number] 2.16.840.1.566042.3.579.2. 1285 1957 Unknown [id number] 2.16.840.1.008400.3.579.2. 1285 1957 Unknown [id number] 2.16.840.1.962678.3.579.2. 1285 1957 Unknown [id number] 2.16.840.1.199674.3.579.2. 1285 1957 Unknown [id number] 2.16.840.1.420034.3.579.2. 1285 1957 Unknown [id number] 2.16.840.1.010927.3.579.2. 1285 1957 Unknown [id number] 2.16.840.1.451758.3.579.2. 1285 1957 Unknown [id number] 2.16.840.1.271790.3.579.2. 1285 1957 Unknown [id number] 2.16.840.1.202105.3.579.2. 1285 1957 Unknown [id number] 2.16.840.1.733640.3.579.2. 1285 1957 Unknown [id number] 2.16.840.1.995010.3.579.2. 1285 1957 Unknown [id number] 2.16.840.1.783230.3.579.2. 1285 1957 Unknown [id number] 2.16.840.1.618588.3.579.2. 1285 1957 Unknown [id number] 2.16.840.1.970097.3.579.2. 1285 1957 Unknown [id number] 2.16.840.1.259007.3.579.2. 1285 1957 Unknown [id number] 2.16.840.1.874882.3.579.2. 1286 1957 Unknown [id number] 2.16.840.1.949830.3.579.2. 128 1957 Unknown [id number] 2.16.840.1.763027.3.579.2. 128 1957 Unknown [id number] 2.16.840.1.164625.3.579.2. 1285 1957 Unknown [id number] 2.16.840.1.405667.3.579.2. 1285 1957 Unknown [id number] 2.16.840.1.793287.3.579.2. 1285 1957 Unknown [id number] 2.16.840.1.301393.3.579.2. 1285 1957 Unknown [id number] 2.16.840.1.301396.3.579.2. 1285 1957 Unknown [id number] 2.16.840.1.462718.3.579.2. 128 1957 Unknown [id number] 2.16.840.1.122905.3.579.2. 1258 1957 Unknown [id number] 2.16.840.1.681628.3.579.2. 1258 1957 Unknown [id number] 2.16.840.1.165518.3.579.2. 1258 1957 Unknown [id number] 2.16.840.1.078792.3.579.2. 1258 1957 Unknown [id number] 2.16.840.1.297841.3.579.2. 1258 1957 Unknown [id number] 2.16.840.1.006752.3.579.2. 1258 1957 Unknown [id number] 2.16.840.1.449361.3.579.2. 1259 1957 Unknown [id number] 2.16.840.1.079159.3.579.2. 9 1957 Unknown [id number] 2.16.840.1.099023.3.579.2. 9 1957 Unknown [id number] 2.16.840.1.055621.3.579.2. 1258 1957 Unknown [id number] 2.16.840.1.054890.3.579.2. 1258 1957 Unknown [id number] 2.16.840.1.776897.3.579.2. 1243 1957 Unknown [id number] 2.16.840.1.145283.3.579.2. 1243 1957 Unknown [id number] 2.16.840.1.961546.3.579.2. 1285 1957 Unknown [id number] 2.16.840.1.927603.3.579.2. 1285 1957 Unknown [id number] 2.16.840.1.132593.3.579.2. 1285 1957 Unknown [id number] 2.16.840.1.218806.3.579.2. 1285 1957 Unknown [id number] 2.16.840.1.952353.3.579.2. 1285 1957 Unknown [id number] 2.16.840.1.468064.3.579.2. 128 1957 Unknown [id number] 2.16.840.1.488679.3.579.2. 1285 1957 Unknown [id number] 2.16.840.1.733058.3.579.2. 1285 1957 Unknown [id number] 2.16.840.1.940576.3.579.2. 1285 1957 Unknown [id number] 2.16.840.1.652107.3.579.2. 1286 1957 Unknown [id number] 2.16.840.1.087968.3.579.2. 128 1957 Unknown [id number] 2.16.840.1.915040.3.579.2. 1286 1957 Unknown [id number] 2.16.840.1.459005.3.579.2. 128 1957 Unknown [id number] 2.16.840.1.259175.3.579.2. 128 1957 Unknown [id number] 2.16.840.1.579426.3.579.2. 128 1957 Unknown [id number] 2.16.840.1.517124.3.579.2. 1285 1957 Unknown [id number] 2.16.840.1.454527.3.579.2. 128 1957 Unknown [id number] 2.16.840.1.749213.3.579.2. 128 1957 Unknown [id number] 2.16.840.1.002770.3.579.2. 128 1957 Unknown [id number] 2.16.840.1.042869.3.579.2. 128 1957 Unknown [id number] 2.16.840.1.077234.3.579.2. 1286 Unknown [id number] 2.16.840.1.710529.3.579.2. 531 Unknown [id number] 2.16.840.1.917210.3.579.2. 531 Social History Date Type Detail Facility Start: 11-20-2021 End: 01-22-2024 Tobacco smoking status [facility]IS Never smoked tobacco (finding) [facility] Start: 11-20-2021 never [facility] Work Phone: Start: 11-20-2021 does not use [facility] Work Phone: Start: 1955 Sex Assigned At Male F [facility] Start: 03-11-2014 End: 01-22-2024 Sex Assigned At [facility] Start: 03-11-2014 End: 01-22-2024 History of Social function [facility] Comment on above: 1-2 CUPS OF COFFEE D AILY; Start: 1955 Sex Assigned At Not on file [facility] Start: 06-27-2022 End: 01-22-2024 Tobacco use and exposure Smokeless tobacco non-user [facility] Start: 09-11-2023 End: 09-19-2023 Alcohol intake Current non-drinker of alcohol (finding) [facility] Do you belong to any clubs or organizations such as jehovah's witness groups, unions, fraternal or athletic groups, or school groups? Yes [facility] Are you now , , , , never or living with a partner? [facility] How often to you hav e a drink containing alcohol? Never [facility] How many standard dr inks containing alcohol do you have on a typical day? Patient does not drink [facility] How hard is it for y ou to pay for the very basics like food, housing, medical care, and heating Not very hard [facility] Do you feel stress - tense, restless, nervous, or anxious, or unable to sleep at night because your mind is troubled all the time - these days [OSQ] Rather much [facility] Start: 09-24-2023 End: 06-26-2024 Alcohol intake Ex-drinker (finding) [facility] Start: 10-17-2023 End: 07-16-2024 Alcohol intake Lifetime non-drinker (finding) [facility] Work Phone: Start: 03-27-2020 End: 07-16-2024 Exposure to SARS-CoV-2 (event) Not sure [facility] Start: 02-14-2021 Gender identity Identifies as male gender (finding) [facility] Start: 02-14-2021 Sexual orientation Choose not to dis close [facility] Start: 04-20-2020 End: 05-20-2020 Exposure to SARS-CoV-2 (event) Unable to assess [facility] Start: 04-08-2015 Sex Male (finding) [facility] Medical Equipment Procedure Code Equipment Code Equipment Origin al Text Equipment Identifier Dates Test blood sugar 3 times a day [id number] Start: 02-02-2023 End: 10-15-2023 Test blood sugar 3 times a day [id number] Start: 02-02-2023 Cap Lck Creo Spn l Thrd Ns Rpl Special [id number] - [id number] Start: 09-21-2023 Graft Bn Cllr Bn Mtrx Lg 10cc Vivigen Frmbl Vivigen Rpl [id number] - [id number] Start: 09-21-2023 Bridger Spnl Creo 45 mm 5.5mm Ti Crv Ns Rpl Special [id number] - [id number] Start: 09-21-2023 Screw Bn 50mm 6.5mm Cnn Spne Creo Ns Lf - [id number] Start: 09-21-2023 CL STENT CAMILLA FRONTIER 2.5 X 22 FDA Start: 10-06-2023 CL STENT CAMILLA FRONTIER 2.75 X 30 FDA Start: 10-06-2023 CL STENT CAMILLA FRONTIER 3.5 X 12 FDA Start: 10-06-2023 CL STENT CAMILLA FRONTIER 4.0 X 38 FDA Start: 10-06-2023 Femoral artery closure plug/patch, synthetic polymer [id number] FDA Start: 10-06-2023 Bone Cement Palacos Radiopaque W/Gentamicin - [id number] Start: 09-11-2011 Comment on above: Description: bone ce ment with 0.5g gentamycin Cement Simplex P Bone Radiopaque Full Dose Sterile - [id number] Start: 04-12-2020 Cement Simplex P Bone Radiopaque Full Dose Sterile - [id number] Start: 04-12-2020 Ufl-Il-O-Kind Implant - [id number] Start: 09-11-2011 Comment on above: Description: Nex Gen Femoral Compnent Fon-Yo-Y-Kind Implant - [id number] Start: 09-11-2011 Comment on above: Description: Nex Gen Tibial component Zav-Ow-R-Kind Implant - [id number] Start: 09-11-2011 Comment on above: Description: CR VICENTE CULAR SURFACE REGULAR CONSTRAINT Persona Imp Knee Surf Artc R 10 8-[facility] [id number] Start: 04-12-2020 Lens Iol Ultrase rt 11.5 - [id number] Start: 09-24-2018 Component Person a 11 Standard Cocr Femoral Cruciate Retain - [id number] Start: 04-12-2020 Component 38mm A ll Poly Patellar Psn - [id number] Start: 04-12-2020 Nexgen All Poly Patella 38mm 9.5mm Thick - [id number] Start: 09-11-2011 Baseplate Person a 5d G Tivanium Tibial Cemented Stem Knee Right - [id number] Start: 04-12-2020 Extension Person a 14mm Taper 30+ Mm Stem Knee Tibia - [id number] Start: 04-12-2020 Plug Nexgen Complete Knee Taper Stem - [id number]_[facility] Start: 09-11-2011 Goals Date Patient Goal Desired Activity /State Personal health goal Comment on above: Formatting of this n ote might be different from the original. Evaluation of progress towards goal: Plan to return home with spouse. Mental Status Date Assessment Result Facility 11-20-2021 Cognitive function Level of Cons ciousness Alert;Appropriate [facility] Work Phone: Clinical Notes 02-28-2012 to 07-16-2024 Gita Watts, - 07/16/2024 11:20 AM ESTPatient InstructionsTelephone Encounter - Elsie Lizzeth Astudillos - 07/03/2024 10:05 AM EDTTelephone Encounter - Elsie N Bozena - 07/03/2024 10:05 AM EDT Note Date & Type Note Facility 07-16-2024 History of Present illness Narrative Subjective Tom Khan is a 68 y.o. male Chief Complaint Follow-up 68-year-old gentleman returns for 6 months following non-ST elevation DC in October with primary revascularization of the distal RCA and PLV branch and ramus branch with several drug-eluting stents and preserved LV function and notably patent PITTS-sequential graft LAD-diagonal the remainder is 3 bypass grafts are occluded. He is otherwise doing well from a cardiac standpoint with no angina or shortness of breath repeat hospitalizations He has significant amount of anxiety, currently being titrated off of Ativan. He has underlying diabetes, obesity, hypertension, ASHD, remains on appropriate GDMT as reviewed and appropriate hemodynamics He remains on DAPT. Recommendations: Follow-up in 8 months on same therapy at obtain a lipid panel Review of Systems All other systems reviewed and are negative. Vitals: 07/16/24 1130 BP: 142/72 BP Location: Right arm Patient Position: Sitting Pulse: 75 Weight: 105 kg (232 lb) Height: 1.803 m (5' 11 ) Objective Physical Exam Constitutional: Appearance: Normal appearance. HENT: Nose: Nose normal. Neck: Vascular: No carotid bruit. Cardiovascular: Rate and Rhythm: Normal rate. Pulses: Normal pulses. Heart sounds: Normal heart sounds. Pulmonary: Effort: Pulmonary effort is normal. Abdominal: General: Bowel sounds are normal. Palpations: Abdomen is soft. Musculoskeletal: General: Normal range of motion. Cervical back: Normal range of motion. Right lower leg: No edema. Left lower leg: No edema. Skin: General: Skin is warm and dry. Neurological: General: No focal deficit present. Mental Status: He is alert. Psychiatric: Mood and Affect: Mood normal. Behavior: Behavior normal. Thought Content: Thought content normal. Judgment: Judgment normal. Allergies Patient has no known allergies. Current Medications Current Outpatient Medications: aspirin 81 mg EC tablet, Take 1 tablet (81 mg) by mouth once daily., Disp: , Rfl: atorvastatin (Lipitor) 80 mg tablet, TAKE 1 TABLET BY MOUTH ONCE DAILY., Disp: 90 tablet, Rfl: 3 busPIRone (Buspar) 10 mg tablet, Take 1 tablet (10 mg) by mouth 2 times a day., Disp: , Rfl: carvedilol (Coreg) 12.5 mg tablet, Take 1 tablet (12.5 mg) by mouth 2 times daily (morning and late afternoon)., Disp: , Rfl: clopidogrel (Plavix) 75 mg tablet, Take 1 tablet (75 mg) by mouth once daily., Disp: 90 tablet, Rfl: 3 DULoxetine (Cymbalta) [address] capsule, Take 1 capsule (30 mg) by mouth once daily. Take with 60mg dose, Disp: , Rfl: DULoxetine (Cymbalta) [address] capsule, Take 1 capsule (60 mg) by mouth once daily. Take with 30mg dose, Disp: , Rfl: empagliflozin (Jardiance) 25 mg, Take 1 tablet (25 mg) by mouth once daily., Disp: , Rfl: insulin lispro protamin-lispro (HumaLOG Mix 50-50 KwikPen) 100 unit/mL (50-50) injection, Inject under the skin 2 times a day with meals. Take as directed per insulin instructions. Per sliding scale, Disp: , Rfl: LORazepam (Ativan) 1 mg tablet, Take 0.5 tablets (0.5 mg) by mouth. Take 1 tab every morning and 1/2 tablet every evening, Disp: , Rfl: losartan (Cozaar) 25 mg tablet, TAKE 1 TABLET BY MOUTH EVERY DAY, Disp: 90 tablet, Rfl: 3 nitroglycerin (Nitrostat) 0.4 mg SL tablet, Place 1 tablet (0.4 mg) under the tongue every 5 minutes if needed for chest pain. May repeat dose every 5 minutes for up to 3 doses total., Disp: 100 tablet, Rfl: 11 omega 2-oza-zgk-fish oil (Fish OiL) 1,000 mg (120 mg-180 mg) capsule, Take 1 capsule (1,000 mg) by mouth once daily., Disp: , Rfl: semaglutide (Ozempic) 2 mg/dose (8 mg/3 mL) pen injector, Inject 2 mg under the skin every 7 days., Disp: , Rfl: spironolactone (Aldactone) 25 mg tablet, Take 1 tablet (25 mg) by mouth once daily., Disp: 30 tablet, Rfl: 11 Toujeo Max U-300 SoloStar 300 unit/mL (3 mL) injection, INJECT 66 UNITS UNDER THE SKIN IN THE MORNING., Disp: , Rfl: traZODone (Desyrel) 100 mg tablet, Take 1 tablet (100 mg) by mouth once daily at bedtime., Disp: , Rfl: melatonin 3 mg capsule, Take 2 capsules by mouth once daily at bedtime., Disp: , Rfl: Assessment/Plan 1. CAD, multiple vessel Follow Up In Cardiology 2. History of coronary artery bypass graft 3. History of PTCA 4. Mixed hyperlipidemia 5. Primary hypertension 6. Body mass index (BMI) of 32.0 to 32.9 in adult 7. Never smoked cigarettes 8. Type 2 diabetes mellitus without complication, with long-term current use of insulin (Multi) 9. Anxiety Scribe Attestation By signing my name below, I, Idris Campos LPN attest that this documentation has been prepared under the direction and in the presence of Gita Watts DO. Provider Attestation - Scribe documentation All medical record entries made by the Scribe were at my direction and personally dictated by me. I have reviewed the chart and agree that the record accurately reflects my personal performance of the history, physical exam, discussion and plan. documented in this encounter [facility] Work Phone: 07-16-2024 Instructions Nataly Urias LPN - 07/16/2024 11:20 AM EST Please bring all medicines, vitamins, and herbal supplements with you when you come to the office. Prescriptions will not be filled unless you are compliant with your follow up appointments or have a follow up appointment scheduled as per instruction of your physician. Refills should be requested at the time of your visit. BMI was above normal measurement. Current weight: 105 kg (232 lb) Weight change since last visit (-) denotes wt loss -14 lbs Weight loss needed to achieve BMI 25: 53.1 Lbs Weight loss needed to achieve BMI 30: 17.4 Lbs Provided instructions on dietary changes Provided instructions on exercise. documented in this encounter [facility] Work Phone: 07-03-2024 Miscellaneous Notes Tried to call pt to schedule referral for abd pain, rang 3 times then call was disconnected. Will try again at a later date. documented in this encounter [email or web address] 07-03-2024 Telephone encounter Note Tried to call pt to schedule referral for abd pain, rang 3 times then call was disconnected. Will try again at a later date. [email or web address] 06-26-2024 History of Present illness Narrative REASON FOR VISIT: Tom Khan returns today for follow up of his diabetes. DIABETES HISTORY: Type of Diabetes: 2 Duration of Diabetes : since 2018 INTERVAL HISTORY: Hemoglobin A1c at last visit from August of 2023 was 8.4%, it is at 7.3% today. Patient had a heart attack October 23, 2023 needing cardiac stenting x4. He is currently on Plavix. Also found to have gallbladder stones in awaiting cholecystectomy. Has not been cleared by Cardiology to go ahead with this. He has also had foot infection needing antibiotics. Currently seeing Podiatry. Some cognitive decline in the interim. He is being tapered off of Ativan to see if it would help with the same. DIABETES COMPLICATIONS/SURVEILLANCE: Retinopathy: yes Last eye exam: UTD Nephropathy: no Peripheral neuropathy: yes Sees podiatry: yes History of foot sores/infections: yes [place] (had diabetic foot infection in 2023, now healed) History of amputations: no Autonomic neuropathy: yes Macrovascular disease: CAD: yes CABG in 2008; stenting in 2023 Dr. Watts PVD: yes Stroke: no Hypertension: yes Dyslipidemia: yes refuses statins Tobacco use: no ASA prophylaxis: yes Sleep apnea: no Routine dental care: yes Immunizations current : yes GLUCOSE CONTROL: Diabetes medications: Toujeo 60 units HS Humalog scale before meals # units +3;50>150 Jardiance 25 mg daily Ozempic 2 mg weekly Blood glucose summary: Patient uses DexScience Exchange G7 Insulin pump/ Continuous glucose monitoring sensor data is available to review under Media tab yes 30 day average BG is 175 Time in range is 59 % Hypoglycemia 0 % Pattern/causes of high BG: post prandial Pattern/causes of low BG: rare Hypoglycemia: Awareness: GOOD Frequency: rare Glucagon available: no Past Medical History: Diagnosis Date Angina pectoris ([facility] Anxiety Arthritis osteoarthritis Back pain Cardiomegaly Cataract CHF (congestive heart failure) ([facility]) Coronary artery disease Status post CABG COVID-19 Dental disease crowns Depression Deviated septum Diabetes mellitus type 2, controlled ([facility]) Difficult intravenous access OSEI (dyspnea on exertion) Esophageal stricture Fractures Gallstone GERD (gastroesophageal reflux disease) H/O esophagogastroduodenoscopy dilatation Heart attack ([facility]) 10/06/2023 4 stints Hiatal hernia Hyperlipidemia Hypertension Hyponatremia Incontinence of bowel Incontinence of urine 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 Mild cognitive impairment Obesity Obsessive compulsive disorder Peripheral neuropathy Pneumonia PONV (postoperative nausea and vomiting) Pulmonary vascular congestion Salmonella Sleep apnea cpap Urinary retention Visual impairment glasses retinal detatchment Vitamin D deficiency Vitreous hemorrhage ([facility]) Vocal cord granuloma Past Surgical History: Procedure Laterality Date BACK SURGERY Left Circumferential 09/21/2023 fusion CATARACT EXTRACTION, BILATERAL Bilateral COLONOSCOPY 2012 CORONARY ARTERY BYPASS GRAFT ESOPHAGOGASTRODUODENOSCOPY dilatation EYE SURGERY Bilateral LAMINECTOMY LUMBAR SINGLE LEVEL / L4/5 N/A 09/21/2023 Performed by Bobbi Steen MD at [facility] [place] POSTERIOR LAMINECTOMY FUSION LUMBAR SINGLE LEVEL / L4/5 N/A 09/21/2023 Performed by Bobbi Steen MD at [facility] [place] REPLACEMENT TOTAL KNEE Bilateral ROTATOR CUFF REPAIR SEPTOPLASTY Current Outpatient Medications: acetaminophen (TYLENOL EXTRA STRENGTH) 500 mg tablet, Every 8 hours, Disp: , Rfl: aspirin 81 mg, Daily, Disp: , Rfl: atorvastatin (LIPITOR) 80 mg tablet, Take 0.5 tablets (40 mg total) by mouth in the morning., Disp: , Rfl: carvediloL (COREG) 12.5 mg tablet, Take 1 tablet (12.5 mg total) by mouth in the morning and 1 tablet (12.5 mg total) before bedtime., Disp: 180 tablet, Rfl: 1 cholecalciferol, vitamin D3, 5,000 units tablet, Take 1 tablet (5,000 Units total) by mouth in the morning., Disp: 90 tablet, Rfl: 3 clopidogreL (PLAVIX) 75 mg tablet, Take 1 tablet (75 mg total) by mouth in the morning., Disp: , Rfl: DULoxetine (CYMBALTA) 30 mg capsule, TAKE 1 CAPSULE BY MOUTH EVERY DAY, Disp: , Rfl: DULoxetine (CYMBALTA) 60 mg capsule, Take 90 mg by mouth in the morning. 90 mg in morning ., Disp: , Rfl: insulin glargine U-300 conc (TOUJEO MAX U-300 SOLOSTAR) 300 unit/mL (3 mL) insulin pen, Inject 66 Units under the skin in the morning. Please schedule appt. (Patient taking differently: Inject 50 Units under the skin in the morning. Please schedule appt.), Disp: 60 mL, Rfl: 1 insulin lispro (HumaLOG) 100 unit/mL insulin pen, Inject 1-5 Units under the skin 4 (four) times a day with meals and nightly. For blood glucose (BG) 151-200= 1 unit; BG 201-250 = 2 units; BG 251-300 = 3 units; BG 301-350 = 4 units; BG 351-400 = 5 units. Notify prescriber if BG below 60 or greater than 400 mg/dL, Disp: 15 mL, Rfl: 12 JARDIANCE 25 mg tablet tablet, TAKE 1 TABLET (25 MG TOTAL) BY MOUTH IN THE MORNING, Disp: 90 tablet, Rfl: 3 LORazepam (ATIVAN) 0.5 mg tablet, Take 1mg in the morning and 0.5mg at bedtime, Disp: 15 tablet, Rfl: 0 losartan (COZAAR) 25 mg tablet, Take 1 tablet (25 mg total) by mouth in the morning., Disp: , Rfl: melatonin (CIRCADIN) tablet, Take 2 tablets (6 mg total) by mouth nightly as needed. 1-2 tabs as needed nightly, Disp: , Rfl: nitroglycerin (NITROSTAT) 0.4 MG SL tablet, Q5M, Disp: , Rfl: omega 5-qjz-ljc-fish oil (Fish OiL) 300-1,000 mg capsule, Take by mouth., Disp: , Rfl: semaglutide (OZEMPIC) 2 mg/dose (8 mg/3 mL) pen injector, Inject 2 mg under the skin every 7 days., Disp: 9 mL, Rfl: 3 spironolactone (ALDACTONE) 25 mg tablet, Daily, Disp: , Rfl: traZODone (DESYREL) 100 mg tablet, Take 1 tablet (100 mg total) by mouth nightly as needed., Disp: , Rfl: cyanocobalamin 1000 MCG tablet, Take 1 tablet (1,000 mcg total) by mouth in the morning. (Patient not taking: Reported on 06/26/2024), Disp: 90 tablet, Rfl: 3 Allergies, social history and family history were reviewed and updated in [facility]. REVIEW OF SYSTEMS: 10 systems have been reviewed and positives are discussed in HPI PHYSICAL EXAM: Wt Readings from Last 3 Encounters: 06/26/24 104.7 kg (230 lb 14.4 oz) 06/10/24 105.2 kg (232 lb) 04/03/24 106.6 kg (235 lb) Body mass index is 33.13 kg/m . Vitals: 06/26/24 1129 BP: (!) 162/93 Pulse: 65 Weight: 104.7 kg (230 lb 14.4 oz) General appearance: Well appearing male in no apparent distress. HEENT: EOMI, oropharynx clear, mucous membranes moist. Neck: No carotid bruits, thyroid palpable. No palpable cervical lymph nodes. Skin: No skin lesions. No nail lesions. No lipohypertrophy at insulin injection sites. Neuro: A & O x 3. Sensation is intact bilaterally to 10 gram monofilament testing. Psych: Mood and affect are appropriate. Diabetic foot exam performed today: no LABS: Results for orders placed or performed during the hospital encounter of 06/10/24 CBC auto differential Collection Time: 06/10/24 1:21 PM Result Value Ref Range White Blood Cells 8.4 4.0 - 11.0 X10E9/L RBC count 4.51 4.10 - 5.70 X10E12/L Hemoglobin 14.1 13.0 - 17.0 g/dL Hematocrit 41.4 39 - 49 % MCV 92 80 - 100 fL MCH 31.3 27 - 34 pg MCHC 34.1 32 - 36 g/dL RDW 15.6 (H) 11.5 - 15.0 % Platelets 244 150 - 450 X10E9/L MPV 7.1 7 - 12 fL % neutrophils 71.5 % % lymphocytes 17.8 % % monocytes 8.8 % % eosinophils 1.6 % % Basophils 0.3 % Neutrophils Absolute (A) 6.0 1.5 - 6.6 X10E9/L Lymphocytes Absolute 1.5 1.0 - 3.5 X10E9/L Monocytes Absolute 0.7 0 - 0.9 X10E9/L Eosinophils Absolute 0.1 0.0 - 0.4 X10E9/L Basophils Absolute 0.0 0.0 - 0.2 X10E9/L Comprehensive metabolic panel Collection Time: 06/10/24 1:21 PM Result Value Ref Range Sodium 140 134 - 146 mmol/L Potassium, Bld 4.1 3.5 - 5.0 mmol/L Chloride 106 98 - 109 mmol/L CO2 26 22 - 32 mmol/L Anion gap 8 5 - 15 mmol/L BUN 20 5 - 27 mg/dL Creatinine 0.78 0.60 - 1.30 mg/dL Glucose 142 (H) 65 - 99 mg/dL Calcium 9.1 8.5 - 10.5 mg/dL Total Protein 7.1 6.0 - 8.0 g/dL Albumin 4.1 3.2 - 5.3 g/dL Alkaline Phosphatase 46 39 - 130 U/L AST 18 0 - 41 U/L ALT 23 0 - 40 U/L Total bilirubin 0.3 0.3 - 1.2 mg/dL eGFR (CKD-EPI)non-race dependent >90 >59 ml/min/1.73sq.m Lipase Collection Time: 06/10/24 1:21 PM Result Value Ref Range Lipase 38 11 - 82 U/L ER Extra Urine Collection Time: 06/10/24 2:20 PM Result Value Ref Range ER Extra Urine ER EXTRA URINE ORDER IN PROCESS POCT Nursing Urine Macroscopic UA Collection Time: 06/10/24 2:30 PM Result Value Ref Range Specific gravity FERNANDO 1.020 1.003 - 1.035 Leukocyte esterase FERNANDO Negative Negative^Negative Nitrite FERNANDO Negative Negative^Negative Ph 6.5 5.0 - 8.5 Protein FERNANDO Negative Negative^Negative mg/dL Urine glucose FERNANDO >=1000 (A) Negative^Negative mg/dL Ketones FERNANDO Negative Negative^Negative mg/dL Urobilinogen FERNANDO 0.2 <1.1 eu/dL Bilirubin FERNANDO Negative Negative^Negative Hemoglobin FERNANDO Negative Negative^Negative Bedside Glucose *Place/Obtain serum glucose if >500(>600 MRH) per glucometer. Collection Time: 06/10/24 6:07 PM Result Value Ref Range Bedside glucose 108 (H) 65 - 99 mg/dL Lab Results Component Value Date HGBA1C 9.6 (H) 06/26/2022 HGBA1C 6.3 (H) 09/14/2015 K 4.1 06/10/2024 K 4.3 11/16/2023 K 4.3 10/24/2023 CREATININE 0.78 06/10/2024 CREATININE 0.85 11/16/2023 CREATININE 0.74 10/24/2023 EGFR >90 06/10/2024 EGFR >90 11/16/2023 EGFR >90 10/24/2023 CHOL 149 (L) 11/16/2023 CHOL 214 (H) 09/17/2023 CHOL 240 (H) 05/10/2023 TRIG 192 (H) 11/16/2023 TRIG 448 (H) 09/17/2023 TRIG 317 (H) 05/10/2023 HDL 45 11/16/2023 HDL 37 (L) 09/17/2023 HDL 39 (L) 05/10/2023 AST 18 06/10/2024 AST 23 11/16/2023 AST 19 09/26/2023 ALT 23 06/10/2024 ALT 38 11/16/2023 ALT 25 09/26/2023 TSH 1.35 11/16/2023 TSH 1.50 09/19/2023 TSH 1.12 11/08/2018 MICROALBUR 1.3 10/11/2022 ASSESSMENT: Tom Khan has poorly controlled type 2complicated by DM neuropathy and CAD PLAN: 1. Type 2 diabetes mellitus with diabetic peripheral angiopathy without gangrene, with long-term current use of insulin ([facility]) - POCT Hemoglobin A1c Continue current dose of Toujeo at 50 units daily. Humalog scale before meals: 80-100: 5u, 101-150= 8 u, 151-200= 10 u, 201-250= 12, 250-300= 14 u, over 300= 16 units Continue current dose of jardiance and Ozempic A1c elevation is associated with significant risk for the development and progression of retinal, neurological and renal complications that can lead to vision loss, amputation, and renal failure. Tight glucose control is required to prevent these complications. Ongoing diabetes education is recommended. If possible a minimum of 150 minutes of physical activity per week is encouraged. Ongoing progressive weight loss is advised yes The signs symptoms and treatment of hypoglycemia are understood by the patient. The individual should not drive if symptoms of hypoglycemia are precieved and if possible the blood glucose should be check before driving or participating in dangerous activity. A diabetes ID is recommended. Yearly dilated eye examination and yearly urine Microalbumin to cr ratio are advised. The blood pressure should be maintained under 140/80. The LDL less than 100 mg/dl for primary prevention atherosclerosis and < 70 mg/dL as secondary prevention. Daily examination of the feet for signs of injury and inspection of the shoes for foreign body or shoe deformity that could lead to foot injury. Return to clinic: 3 months with GENERAL OFFICE ASSOCIATE, and 6 months with me documented in this encounter [email or web address] 06-10-2024 History of Present illness Narrative Subjective Patient ID: Tom Khan is a 68 y.o. male. Chief Complaint Chief Complaint Patient presents with Follow-up Not able to have sx until next year, discuss B12 HPI HPI Here with I hurt all over . Neck, back, teeth, abdomen. Gait imbalance and fecal incontinence NEW over the past month. Fecal incontinence during office visit today. Had fecal incontinence last year when had cauda equina and emergent surgery. Seemed to go away, but last several weeks a few episodes of fecal incontinence and imbalance 5/10 neck pain. No radiation to arms Reported dental abscess and recent dental work - finished oral antibiotic per dentist. Denies oral pain Denies fever or chills Has tried 's 600 mg ibuprofen for pain Sees psychiatrist monthly Some degree of cognitive impairment/pseudodementia? ... Has had neuropsych eval in past reportedly Upset is going on vacation with him. Upset about decisions he made 30 years ago Past Medical History Past Medical History: Diagnosis Date Angina pectoris ([facility]) Anxiety Arthritis osteoarthritis Back pain Cardiomegaly Cataract CHF (congestive heart failure) ([facility]) Coronary artery disease Status post CABG COVID-19 Dental disease crowns Depression Deviated septum Diabetes mellitus type 2, controlled ([facility]) Difficult intravenous access OSEI (dyspnea on exertion) Esophageal stricture Fractures Gallstone GERD (gastroesophageal reflux disease) H/O esophagogastroduodenoscopy dilatation Heart attack ([facility]) 10/06/2023 4 stints Hiatal hernia Hyperlipidemia Hypertension Hyponatremia Incontinence of bowel Incontinence of urine 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 Mild cognitive impairment Obesity Obsessive compulsive disorder Peripheral neuropathy Pneumonia PONV (postoperative nausea and vomiting) Pulmonary vascular congestion Salmonella Sleep apnea cpap Urinary retention Visual impairment glasses retinal detatchment Vitamin D deficiency Vitreous hemorrhage ([facility]) Vocal cord granuloma Past Surgical History Past Surgical History: Procedure Laterality Date BACK SURGERY Left Circumferential 09/21/2023 fusion CATARACT EXTRACTION, BILATERAL Bilateral COLONOSCOPY 2012 CORONARY ARTERY BYPASS GRAFT ESOPHAGOGASTRODUODENOSCOPY dilatation EYE SURGERY Bilateral LAMINECTOMY LUMBAR SINGLE LEVEL / L4/5 N/A 09/21/2023 Performed by Bobbi Steen MD at [facility] [place] POSTERIOR LAMINECTOMY FUSION LUMBAR SINGLE LEVEL / L4/5 N/A 09/21/2023 Performed by Bobbi Steen MD at [facility] [place] REPLACEMENT TOTAL KNEE Bilateral ROTATOR CUFF REPAIR SEPTOPLASTY Family History Family History Problem Relation Age of Onset Diabetes Mother Hypertension Mother Heart disease Father Hyperlipidemia Father Hypertension Father Social History Social History Socioeconomic History Marital status: Spouse name: Not on file Number of children: Not on file Years of education: Not on file Highest education level: Not on file Occupational History Not on file Tobacco Use Smoking status: Never Smokeless tobacco: Never Vaping Use Vaping status: Never Used Passive vaping exposure: Yes Substance and Sexual Activity Alcohol use: Not Currently Drug use: No Sexual activity: Yes Partners: Female Other Topics Concern Not on file Social History Narrative Not on file Social Determinants of Health Financial Resource Strain: Low Risk (04/17/2023) Overall Financial Resource Strain (CARDIA) Difficulty of Paying Living Expenses: Not very hard Food Insecurity: No Food Insecurity (06/10/2024) Hunger Screening Food Insecurity - Worry: Never True Food Insecurity - Inability: Never True Transportation Needs: No Transportation Needs (04/17/2023) PRAPARE - Transportation Lack of Transportation (Medical): No Lack of Transportation (Non-Medical): No Physical Activity: Sufficiently Active (04/17/2023) Exercise Vital Sign Days of Exercise per Week: 4 days Minutes of Exercise per Session: 60 min Stress: Stress Concern Present (04/17/2023) [employer] - Occupational Stress Questionnaire Feeling of Stress : Rather much Social Connections: Socially Integrated (04/17/2023) Social Connection and Isolation Panel [NHANES] Frequency of Communication with Friends and Family: More than three times a week Frequency of Social Gatherings with Friends and Family: More than three times a week Attends Jainism Services: More than 4 times per year Active Member of Clubs or Organizations: Yes Attends Club or Organization Meetings: Never Marital Status: Interpersonal Safety: Not At Risk (04/17/2023) Humiliation, Afraid, Rape, and Kick questionnaire Fear of Current or Ex-Partner: No Emotionally Abused: No Physically Abused: No Sexually Abused: No Housing Instability: Low Risk (04/17/2023) Housing Instability Housing Instability: No Allergies No Known Allergies Current Medications Current Outpatient Medications Medication Sig Dispense Refill acetaminophen (TYLENOL EXTRA STRENGTH) 500 mg tablet Every 8 hours aspirin 81 mg Daily atorvastatin (LIPITOR) 80 mg tablet Take 0.5 tablets (40 mg total) by mouth in the morning. carvediloL (COREG) 12.5 mg tablet Take 1 tablet (12.5 mg total) by mouth in the morning and 1 tablet (12.5 mg total) before bedtime. 180 tablet 1 cholecalciferol, vitamin D3, 5,000 units tablet Take 1 tablet (5,000 Units total) by mouth in the morning. 90 tablet 3 clopidogreL (PLAVIX) 75 mg tablet Take 1 tablet (75 mg total) by mouth in the morning. DULoxetine (CYMBALTA) 30 mg capsule TAKE 1 CAPSULE BY MOUTH EVERY DAY DULoxetine (CYMBALTA) 60 mg capsule Take 90 mg by mouth in the morning. 90 mg in morning . insulin glargine U-300 conc (TOUJEO MAX U-300 SOLOSTAR) 300 unit/mL (3 mL) insulin pen Inject 66 Units under the skin in the morning. Please schedule appt. (Patient taking differently: Inject 50 Units under the skin in the morning. Please schedule appt.) 60 mL 1 insulin lispro (HumaLOG) 100 unit/mL insulin pen Inject 1-5 Units under the skin 4 (four) times a day with meals and nightly. For blood glucose (BG) 151-200= 1 unit; BG 201-250 = 2 units; BG 251-300 = 3 units; BG 301-350 = 4 units; BG 351-400 = 5 units. Notify prescriber if BG below 60 or greater than 400 mg/dL 15 mL 12 JARDIANCE 25 mg tablet tablet TAKE 1 TABLET (25 MG TOTAL) BY MOUTH IN THE MORNING 90 tablet 3 LORazepam (ATIVAN) 0.5 mg tablet Take 1mg in the morning and 0.5mg at bedtime 15 tablet 0 losartan (COZAAR) 25 mg tablet Take 1 tablet (25 mg total) by mouth in the morning. melatonin (CIRCADIN) tablet Take 2 tablets (6 mg total) by mouth nightly as needed. 1-2 tabs as needed nightly nitroglycerin (NITROSTAT) 0.4 MG SL tablet Q5M omega 2-dcm-swl-fish oil (Fish OiL) 300-1,000 mg capsule Take by mouth. polyethylene glycol (GLYCOLAX) 17 gram packet Take 17 g by mouth in the morning. (Patient taking differently: Take 17 g by mouth as needed.) semaglutide (OZEMPIC) 0.25 mg or 0.5 mg (2 mg/3 mL) pen injector Inject 0.5 mg under the skin every 7 days. 0.5 mg subQ weekly for 4 weeks then increase to 1 mg weekly for 4 weeks, then increase to 2 mg weekly. 3 mL 0 semaglutide (OZEMPIC) 2 mg/dose (8 mg/3 mL) pen injector Inject 2 mg under the skin every 7 days. 9 mL 3 spironolactone (ALDACTONE) 25 mg tablet Daily traZODone (DESYREL) 100 mg tablet Take 1 tablet (100 mg total) by mouth nightly as needed. cyanocobalamin 1000 MCG tablet Take 1 tablet (1,000 mcg total) by mouth in the morning. (Patient not taking: Reported on 06/10/2024) 90 tablet 3 No current facility-administered medications for this visit. Review of Systems Review of Systems Constitutional: Negative for chills and fever. Respiratory: Positive for shortness of breath. Cardiovascular: Positive for chest pain. Gastrointestinal: Positive for abdominal pain. Genitourinary: Positive for difficulty urinating. Musculoskeletal: Positive for back pain, neck pain and neck stiffness. Neurological: Positive for weakness and numbness. Psychiatric/Behavioral: Positive for dysphoric mood. The patient is nervous/anxious. Objective Vitals BP 128/60 Pulse 74 Temp 36.6 C (97.8 F) Resp 18 Ht 177.8 cm (5' 10 ) Wt 105.2 kg (232 lb) SpO2 97% BMI 33.29 kg/m Physical Exam Physical Exam Vitals and nursing note reviewed. Constitutional: Appearance: He is obese. He is not ill-appearing. Cardiovascular: Rate and Rhythm: Normal rate and regular rhythm. Heart sounds: Normal heart sounds, S1 normal and S2 normal. Pulmonary: Effort: Pulmonary effort is normal. Breath sounds: No decreased breath sounds, wheezing, rhonchi or rales. Musculoskeletal: Cervical back: Tenderness present. Decreased range of motion. Lumbar back: Tenderness present. Decreased range of motion. Neurological: Mental Status: He is alert and oriented to person, place, and time. Coordination: Romberg sign positive. Heel to Duckworth Test normal. Gait: Gait abnormal and tandem walk abnormal. Psychiatric: Attention and Perception: Attention normal. Mood and Affect: Mood is depressed. Behavior: Behavior is cooperative. Recent Pertinent Labs and Radiology Assessment/Plan 1. Suspected cauda equina syndrome 2. Neck pain 3. Bilateral low back pain with sciatica, sciatica laterality unspecified, unspecified chronicity 4. Incontinence of feces, unspecified fecal incontinence type 5. B12 deficiency - Vitamin B12; Future New imbalance, fecal incontinence, complaints of neck and low back pain Referred to [facility] ER for eval There are no discontinued medications. There are no Patient Instructions on file for this visit. TERRY Monteiro 06/10/24 1240 documented in this encounter [facility] 06-05-2024 Miscellaneous Notes I called the patient's spouse to see if I should reschedule him for his surgery. She states that Dr. Watts from [facility] informed her that he cannot have surgery due to Cardiology issues for at lease a year or more. documented in this encounter [facility] 06-05-2024 Telephone encounter Note I called the patient's spouse to see if I should reschedule him for his surgery. She states that Dr. Watts from [facility] informed her that he cannot have surgery due to Cardiology issues for at lease a year or more. [email or web address] 01-22-2024 History of Present illness Narrative Subjective Tom Khan is a 68 y.o. male Chief Complaint Follow-up 68-year-old gentleman returns for follow-up for the first time to see me following high risk non-ST elevation DC and October 06 of this year with primary revascularization of the distal RCA and PLV branch with 3 drug-eluting stents in the large ramus branch with 1 drug-eluting stent with reportedly preserved LV function. He has a history of four-vessel CABG, he is PITTS Y graft to the LAD and diagonal are patent however vein grafts x 3 are occluded. He has underlying insulin requiring diabetes mellitus, obesity, hypertension, hyperlipidemia, anxiety/depression. His current complaints are regards to nuisance bleeding and bruising evaluated on today's exam. In addition to fogginess, and lack of concentration. He states he has not been able to lose any weight, we have discussed, counseling on dietary discretion, weight loss and exercise and offered further insight in regards to certain diets including Mediterranean diet, protein diets, increasing aerobic activity. Recommendations: Discontinue Brilinta and initiate clopidogrel 75 daily, take beta-shayne with meals, follow-up in 6 months Review of Systems Cardiovascular: Positive for chest pain. Respiratory: Positive for shortness of breath. Vitals: 01/22/24 1417 BP: 152/78 BP Location: Left arm Patient Position: Sitting Pulse: 72 Weight: 112 kg (246 lb) Height: 1.803 m (5' 11 ) Objective Physical Exam Constitutional: Appearance: Normal appearance. HENT: Nose: Nose normal. Neck: Vascular: No carotid bruit. Cardiovascular: Rate and Rhythm: Normal rate. Pulses: Normal pulses. Heart sounds: Normal heart sounds. Pulmonary: Effort: Pulmonary effort is normal. Abdominal: General: Bowel sounds are normal. Palpations: Abdomen is soft. Musculoskeletal: General: Normal range of motion. Cervical back: Normal range of motion. Right lower leg: No edema. Left lower leg: No edema. Skin: General: Skin is warm and dry. Neurological: General: No focal deficit present. Mental Status: He is alert. Psychiatric: Mood and Affect: Mood normal. Behavior: Behavior normal. Thought Content: Thought content normal. Judgment: Judgment normal. Allergies Patient has no known allergies. Current Medications Current Outpatient Medications: aspirin 81 mg EC tablet, Take 1 tablet (81 mg) by mouth once daily., Disp: , Rfl: atorvastatin (Lipitor) 80 mg tablet, Take 1 tablet (80 mg) by mouth once daily., Disp: 90 tablet, Rfl: 0 carvedilol (Coreg) 12.5 mg tablet, Take 1 tablet (12.5 mg) by mouth 2 times daily (morning and late afternoon)., Disp: , Rfl: cyanocobalamin (Vitamin B-12) 100 mcg tablet, Take 1 tablet (100 mcg) by mouth once daily., Disp: , Rfl: DULoxetine (Cymbalta) [address] capsule, Take 1 capsule (30 mg) by mouth once daily. Take with 60mg dose, Disp: , Rfl: DULoxetine (Cymbalta) [address] capsule, Take 1 capsule (60 mg) by mouth once daily. Take with 30mg dose, Disp: , Rfl: empagliflozin (Jardiance) 25 mg, Take 1 tablet (25 mg) by mouth once daily., Disp: , Rfl: insulin glargine,hum.rec.anlog (TOUJEO MAX U-300 SOLOSTAR SUBQ), Inject 66 Units under the skin once daily at bedtime. Take as directed per insulin instructions., Disp: , Rfl: insulin lispro protamin-lispro (HumaLOG Mix 50-50 KwikPen) 100 unit/mL (50-50) injection, Inject under the skin 2 times a day with meals. Take as directed per insulin instructions. Per sliding scale, Disp: , Rfl: LORazepam (Ativan) 1 mg tablet, Take 1 tablet (1 mg) by mouth. Take 1 tab every morning and 1/2 tablet every evening, Disp: , Rfl: losartan (Cozaar) 25 mg tablet, TAKE 1 TABLET BY MOUTH EVERY DAY, Disp: 90 tablet, Rfl: 3 melatonin 3 mg capsule, Take 2 capsules by mouth once daily at bedtime., Disp: , Rfl: nitroglycerin (Nitrostat) 0.4 mg SL tablet, Place 1 tablet (0.4 mg) under the tongue every 5 minutes if needed for chest pain. May repeat dose every 5 minutes for up to 3 doses total., Disp: 100 tablet, Rfl: 11 omega 3-joc-thy-fish oil (Fish OiL) 1,000 mg (120 mg-180 mg) capsule, Take 1 capsule (1,000 mg) by mouth once daily., Disp: , Rfl: spironolactone (Aldactone) 25 mg tablet, Take 1 tablet (25 mg) by mouth once daily., Disp: 30 tablet, Rfl: 11 tamsulosin (Flomax) 0.4 mg 24 hr capsule, Take 1 capsule (0.4 mg) by mouth once daily., Disp: , Rfl: Toujeo Max U-300 SoloStar 300 unit/mL (3 mL) injection, INJECT 66 UNITS UNDER THE SKIN IN THE MORNING., Disp: , Rfl: Assessment/Plan 1. CAD, multiple vessel Follow Up In Cardiology 2. Obesity (BMI 30-39.9) 3. Primary hypertension 4. Type 2 diabetes mellitus without complication, with long-term current use of insulin (Multi) 5. Depression, unspecified depression type 6. Old DC (myocardial infarction) 7. History of PTCA 8. Anxiety 9. Mixed hyperlipidemia Scribe Attestation By signing my name below, I, Idris Sevilla LPN attest that this documentation has been prepared under the direction and in the presence of Gita Watts DO. Provider Attestation - Scribe documentation All medical record entries made by the Scribe were at my direction and personally dictated by me. I have reviewed the chart and agree that the record accurately reflects my personal performance of the history, physical exam, discussion and plan. documented in this encounter [facility] Work Phone: 01-22-2024 Instructions Mona Huffman LPN - 01/22/2024 1:50 PM EDT Please bring all medicines, vitamins, and herbal supplements with you when you come to the office. Prescriptions will not be filled unless you are compliant with your follow up appointments or have a follow up appointment scheduled as per instruction of your physician. Refills should be requested at the time of your visit. BMI was above normal measurement. Current weight: 112 kg (246 lb) Weight change since last visit (-) denotes wt loss -3 lbs Weight loss needed to achieve BMI 25: 67.1 Lbs Weight loss needed to achieve BMI 30: 31.4 Lbs Provided instructions on dietary changes Provided instructions on exercise Advised to Increase physical activity. documented in this encounter [facility] Work Phone: 12-05-2023 Miscellaneous Notes 12/05/23 Tom Khan 1955 Has Contacted our office requesting Nutrition Education. If you would like to refer Tom, please sign pended referral if agreeable for Education. Thank you! [facility] [phone] documented in this encounter [facility] 12-05-2023 Telephone encounter Note 12/05/23 Tmo Khan 1955 Has Contacted our office requesting Nutrition Education. If you would like to refer Tom, please sign pended referral if agreeable for Education. Thank you! [facility] [phone] [facility] 11-28-2023 Miscellaneous Notes Patient is concerned with a low that he had around 1am. Dexcom download attached in social media designer. Please advise. Toujeo 66u HS Humalog scale to: 0-100: 6u, 101-150= 8 u, 151-200= 11 u, 201-250= 14, 250-300= 17 etc. I see a 1:00 a.m. low about 1 week back. Looks like he has not had anymore lows since. If this is correct, no need to change any doses. If he is needing to eat a bedtime snack to avoid overnight lows, then drop Toujeo to 60 units HS and avoid bedtime snacking. Patient states he only had the one low and no bedtime snacking is done so patient informed of no changes at this time. I told him of lows continue to call us. documented [facility] 11-28-2023 Telephone encounter Note Patient is concerned with a low that he had around 1am. Dexcom download attached in social media designer. Please advise. Toujeo 66u HS Humalog scale to: 0-100: 6u, 101-150= 8 u, 151-200= 11 u, 201-250= 14, 250-300= 17 etc. [facility] 11-28-2023 Telephone encounter Note I see a 1:00 a.m. low about 1 week back. Looks like he has not had anymore lows since. If this is correct, no need to change any doses. If he is needing to eat a bedtime snack to avoid overnight lows, then drop Toujeo to 60 units HS and avoid bedtime snacking. [facility] 11-28-2023 Telephone encounter Note Patient states he only had the one low and no bedtime snacking is done so patient informed of no changes at this time. I told him of lows continue to call us. [facility] 11-27-2023 Miscellaneous Notes Pt would like order for aquatic therapy. Please send to [facility] in [place]. Please place order. Need clearance from cardiology for water therapy Notified pt. documented in this encounter [facility] 11-27-2023 Telephone encounter Note Pt would like order for aquatic therapy. Please send to [facility] in [place]. Please place order. [facility] 11-27-2023 Telephone encounter Note Need clearance from cardiology for water therapy [facility] Work Phone: 11-27-2023 Telephone encounter Note Notified pt. [facility] 11-26-2023 History of Present illness Narrative Images from the original note were not included. [address] [facility] [id number] Patient: Tom Khan Date of : 1955 Encounter Date: 11/26/2023 History of Present Illness: Chief Complaint: Voiding dysfunction The patient is a 68 y.o. male, a new patient, and is here with his for voiding dysfunction. He was referred by Dr. Steen. Patient underwent L4-L5 posterior laminectomy and fusion 09/21/2023. Issues with residual numbness in the bilateral lower extremities as well as incontinence per Dr. Steen's office note. Maintained on tamsulosin 0.4mg once qhs for the past few months or so. NO prior Urologic surgery. Patient reports that PRIOR to his back surgery he had urinary urgency and urge incontinence as well as fecal urgency/urge incontinence. Nocturia x 3. No issues with urinary frequency. Post back surgery his nocturia is unchanged. No longer has urge incontinence or fecal issues but still with element of urinary urgency. Denies gross hematuria, denies frequency, denies dysuria, denies UTIs. Does report intermittent splayed urinary stream. He did have a patel catheter around the time of his back surgery--very painful placement per /pt--not clear if inexperienced nurse, lack of coude, etc. He does drink caffeine in the form of 2-3 cups of coffee daily and sometimes additional pop intake (cola). He also reports erectile dysfunction--not a candidate for PDE5 as he had DC in 10/2023 per and carries nitroglycerin (never used). Discussed potential for JENNIFER or penile ICI. 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 Hx of lumbar spinal stenosis, constipation, neuropathy. PVR: 102ml PSA 11/16/23 at 0.98. No known family history of prostate cancer. UA: 3+ glucose o/w negative Summary of old records: Reviewed Epic records Urinalysis today: Last BUN and creatinine: Lab Results Component Value Date BUN 25 11/16/2023 Lab Results Component Value Date CREATININE 0.85 11/16/2023 Last PSA: No results found for: PSA Lab Results Component Value Date PROSTATICSP 0.98 11/16/2023 Past Medical, Family, and Social History Update: The following portions of the patient's history were reviewed and updated as appropriate: allergies, current medications, past family history, past medical history, past social history, past surgical history and problem list. Past Medical History: Diagnosis Date Angina pectoris ([facility]) Anxiety Arthritis osteoarthritis Back pain Cardiomegaly Cataract CHF (congestive heart failure) ([facility]) Coronary artery disease Status post CABG COVID-19 Dental disease crowns Depression Deviated septum Diabetes mellitus type 2, controlled ([facility]) Difficult intravenous access OSEI (dyspnea on exertion) Esophageal stricture Fractures Gallstone GERD (gastroesophageal reflux disease) H/O esophagogastroduodenoscopy dilatation Heart attack ([facility]) 10/06/2023 4 stints Hiatal hernia Hyperlipidemia Hypertension Hyponatremia Incontinence of bowel Incontinence of urine 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 Mild cognitive impairment Obesity Obsessive compulsive disorder Peripheral neuropathy Pneumonia PONV (postoperative nausea and vomiting) Pulmonary vascular congestion Salmonella Sleep apnea cpap Urinary retention Visual impairment glasses retinal detatchment Vitamin D deficiency Vitreous hemorrhage ([facility]) Vocal cord granuloma Past Surgical History: Procedure Laterality Date BACK SURGERY Left Circumferential 09/21/2023 fusion CATARACT EXTRACTION, BILATERAL Bilateral COLONOSCOPY 2012 CORONARY ARTERY BYPASS GRAFT ESOPHAGOGASTRODUODENOSCOPY dilatation EYE SURGERY Bilateral LAMINECTOMY LUMBAR SINGLE LEVEL / L4/5 N/A 09/21/2023 Performed by Bobbi Steen MD at [facility] POSTERIOR LAMINECTOMY FUSION LUMBAR SINGLE LEVEL / L4/5 N/A 09/21/2023 Performed by Bobbi Steen MD at [facility] REPLACEMENT TOTAL KNEE Bilateral ROTATOR CUFF REPAIR SEPTOPLASTY Family History Problem Relation Age of Onset Diabetes Mother Hypertension Mother Heart disease Father Hyperlipidemia Father Hypertension Father Current Outpatient Medications Medication Sig Dispense Refill acetaminophen (TYLENOL EXTRA STRENGTH) 500 mg tablet Every 8 hours aspirin 81 mg Daily atorvastatin (LIPITOR) 80 mg tablet Every evening carvediloL (COREG) 12.5 mg tablet Take 1 tablet (12.5 mg total) by mouth in the morning and 1 tablet (12.5 mg total) before bedtime. 180 tablet 1 cyanocobalamin (VITAMIN B-12) 100 MCG tablet Take 10 tablets (1,000 mcg total) by mouth in the morning. DULoxetine (CYMBALTA) 30 mg capsule TAKE 1 CAPSULE BY MOUTH EVERY DAY DULoxetine (CYMBALTA) 60 mg capsule Take 1 capsule (60 mg total) by mouth in the morning. 60 mg in morning 30 at night. empagliflozin (JARDIANCE ORAL) Take 25 mg by mouth every morning. insulin glargine U-300 conc (TOUJEO MAX U-300 SOLOSTAR) 300 unit/mL (3 mL) insulin pen Inject 66 Units under the skin in the morning. 60 mL 1 insulin lispro (HumaLOG) 100 unit/mL insulin pen Inject 1-5 Units under the skin 4 (four) times a day with meals and nightly. For blood glucose (BG) 151-200= 1 unit; BG 201-250 = 2 units; BG 251-300 = 3 units; BG 301-350 = 4 units; BG 351-400 = 5 units. Notify prescriber if BG below 60 or greater than 400 mg/dL 15 mL 12 LORazepam (ATIVAN) 0.5 mg tablet Take 1mg in the morning and 0.5mg at bedtime 15 tablet 0 losartan (COZAAR) 25 mg tablet Take 1 tablet (25 mg total) by mouth in the morning. melatonin (CIRCADIN) tablet Take 2 tablets (6 mg total) by mouth nightly as needed. 1-2 tabs as needed nightly nitroglycerin (NITROSTAT) 0.4 MG SL tablet Q5M omega 8-fwa-lnp-fish oil (Fish OiL) 300-1,000 mg capsule Take by mouth. polyethylene glycol (GLYCOLAX) 17 gram packet Take 17 g by mouth in the morning. spironolactone (ALDACTONE) 25 mg tablet Daily ticagrelor (BRILINTA) 90 mg tablet Twice daily cholecalciferol, vitamin D3, 5,000 units tablet Take 1 tablet (5,000 Units total) by mouth in the morning. (Patient not taking: Reported on 10/15/2023) tamsulosin (FLOMAX) 0.4 mg capsule Take 2 pills by mouth prior to bedtime 180 capsule 2 No current facility-administered medications for this visit. (All medications reviewed and updated by provider since last office visit or hospitalization) Allergies: Patient has no known allergies. Tobacco History: Social History Tobacco Use Smoking Status Never Smokeless Tobacco Never (If patient a smoker, smoking cessation counseling offered) Social History: Social History Substance and Sexual Activity Alcohol Use Not Currently Review of Systems: Constitutional: Normal activity and energy. Patient denies change in appetite, weight loss or gain, malaise (depression), chills, fever, or diaphoresis (sweating). Eyes: Patient denies vision changes or diplopia (double vision). Ears, Nose, Nose and Throat: Patient denies tinnitus (ringing in ears), hearing loss, epistaxis (nose bleed), hoarseness, and dysphagia (hard to swallow). Respiratory: Patient denies dyspnea (shortness of breath), cough, hemotypsis (blood in sputum), and wheezing. Cardiovascular: Patient denies chest pain, palpitations, and shortness of breath. Gastrointestinal: Patient denies abdominal pain, nausea, vomiting, bloating, diarrhea (chronic), constipation (chronic), melena (black stool), hematochezia (blood in stool). Musculoskeletal: Patient denies joint pain/stiffness, weakness, swelling, and backache. Neurologic: Patient denies weakness, dizziness, loss of consciousness, transient ischemic symptoms, and seizures. Integument: Patient denies rashes and non-healing lesions. Psychiatric: Patient denies increased nervousness, mood changes, or depression. Endocrine: Patient denies thyroid trouble, heat or cold intolerance, diabetes, excessive thirst, hunger, and excessive urination. Blood Disorders: Patient denies anemia, easy bruising, and easy bleeding. Physical Exam: BP 112/71 Pulse 70 Ht 177.8 cm (5' 10 ) Wt 114.8 kg (253 lb) BMI 36.30 kg/m Constitutional: He appears well-developed and well-nourished. He is cooperative. Non-toxic appearance. He does not have a sickly appearance. he does not appear ill. No distress. Pulmonary/Chest: Effort normal. No accessory muscle usage. No respiratory distress. Neurological: He is alert and oriented for age. He is not disoriented. Gait normal. Nursing note and vitals reviewed. Penis: small meatus Scrotum: normal other than area of prior excoriation JESSICA: 2+ soft but small nodular area right base Assessment and Plan: Tom was seen today for new patient. Diagnoses and all orders for this visit: Numbness in both legs - [facility] - DOYLE Renee - Measure post void residual History of urinary retention - tamsulosin (FLOMAX) 0.4 mg capsule; Take 2 pills by mouth prior to bedtime Problem List None 11/26/23: With respect to his voiding discussed options of cystoscopy with or without anesthesia given the splaying stream--consideration for urodynamics as well. The urethral meatus is on the small side on exam today. Discussed that with him emptying his bladder reasonably well at 102 mL--was able to void thereafter as well, I do not need to push him to do anything. With respect to his urinary urgency would recommend that he significantly reduce or even eliminate any caffeine from his diet. Would recommend against anticholinergic medications secondary to the potential for worsening his already existent constipation. Did discuss having him increase the tamsulosin to 0.8 mg prior to bedtime with monitoring of his BP. If he does not tolerate he can certainly go back to the 0.4 mg. I did send in a new prescription to reflect the 0.8 mg so that he does not run out should he stay on it. With respect to his erectile dysfunction he does possess nitroglycerin even though he has never had to use it but did have DC in October of 2023. He understands he has not a candidate for PDE5. We briefly discussed potential for vacuum erection device as well as possible penile injection therapy. He will consider his options. Would like him to follow-up short-term sometime in the next 2-3 months in the [place] office location, establish with 1 of the physicians, rechecked postvoid residual at that time. If he decides he wants to pursue either the erectile dysfunction treatment and or increase in the tamsulosin he will contact the office and we can do so. JESSICA did show nodular area right base with a completely normal PSA within the last 2 weeks. This can be rechecked short-term. HECTOR VIEYRA This note was created with the assistance of a speech recognition program. While intending to generate a timely document that accurately reflects the content of the visit, no guarantee can be provided that every grammatical or spelling mistake has been or will be identified or corrected. Thank you for your understanding. HECTOR Vieyra 11/26/23 1101 HECTOR Vieyra 11/26/23 1110 documented in this encounter [facility] 11-22-2023 Miscellaneous Notes LM that a change was made to humalog last week which he has started. She calls with concern because last night around 2am his blood sugar dropped to 44. She states he drank some coke and blood sugar came up to 89. By morning his blood sugar was 152 and humalog was given this morning with breakfast. She states his sugars are up and down. Please advise. It doesn't look like he has any upcoming appointments with our office. Decrease Humalog scale to: 0-100: 6u, 101-150= 8 u, 151-200= 11 u, 201-250= 14, 250-300= 17 etc. Dexcom download in 1 week Spoke with , she was unable to write down the new scale at this time and asked that the new scale be sent in a [employer] message. Message sent. [facility]23 Telephone encounter Note LM that a change was made to humalog last week which he has started. She calls with concern because last night around 2am his blood sugar dropped to 44. She states he drank some coke and blood sugar came up to 89. By morning his blood sugar was 152 and humalog was given this morning with breakfast. She states his sugars are up and down. Please advise. It doesn't look like he has any upcoming appointments with our office. [facility] 11-22-2023 Telephone encounter Note Decrease Humalog scale to: 0-100: 6u, 101-150= 8 u, 151-200= 11 u, 201-250= 14, 250-300= 17 etc. Dexcom download in 1 week [facility] Work Phone: 11-22-2023 Telephone encounter Note Spoke with , she was unable to write down the new scale at this time and asked that the new scale be sent in a [employer] message. Message sent. [facility] 11-22-2023 Miscellaneous Notes Patient sent a mychart message asking about his dexa scan that he is supposed to get done. Can you please place this order? HIDA scan was recommended, not DEXA HIDA scan order placed Patient notified, states he will call back for central scheduling number. Pt called back, was given scheduling number. He states the pain in abd getting worse. Advised to get 1st avail. Also, patient wanted to let you know his blood sugars are all over the place and back is bothering him. Likely will have to wait a couple weeks for HIDA scan, if he is having increased back and abd pain, he should be evaluated in ED Called patient, he has HIDA scan 12/05. Pt was advised to ER if worse. documented in this encounter [facility] 11-22-2023 Telephone encounter Note Patient sent a mychart message asking about his dexa scan that he is supposed to get done. Can you please place this order? [facility] 11-22-2023 Telephone encounter Note HIDA scan was recommended, not DEXA HIDA scan order placed [facility] 11-22-2023 Telephone encounter Note Patient notified, states he will call back for central scheduling number. [facility] 11-22-2023 Telephone encounter Note Pt called back, was given scheduling number. He states the pain in abd getting worse. Advised to get 1st avail. Also, patient wanted to let you know his blood sugars are all over the place and back is bothering him. [facility] 11-22-2023 Telephone encounter Note Likely will have to wait a couple weeks for HIDA scan, if he is having increased back and abd pain, he should be evaluated in ED [facility] 11-22-2023 Telephone encounter Note Called patient, he has HIDA scan 12/05. Pt was advised to ER if worse. [facility] 11-19-2023 Miscellaneous Notes Patient states that even when he eats well high blood sugars are elevated afterwards. Dexcom download is attached in social media designer. Please advise. Toujeo 68u HS Humalog sliding scale <100 none 101-150: 9u 151-200: 12u 201-250: 15u etc Increase Humalog scale to 80-100: 8u, 101-150= 10 u, 151-200= 13 u, 201-250= 16, 250-300= 19 u etc Called. NAMIQUEL documented in this encounter [facility] 11-19-2023 Telephone encounter Note Patient states that even when he eats well high blood sugars are elevated afterwards. Dexcom download is attached in social media designer. Please advise. Toujeo 68u HS Humalog sliding scale <100 none 101-150: 9u 151-200: 12u 201-250: 15u etc [facility] 11-19-2023 Telephone encounter Note Increase Humalog scale to 80-100: 8u, 101-150= 10 u, 151-200= 13 u, 201-250= 16, 250-300= 19 u etc [facility] Work Phone: 11-19-2023 Telephone encounter Note Called. NA.DEVANTE [facility] 11-19-2023 Miscellaneous Notes Error-Pt called for results, gave to Prisca documented in this encounter [facility] 11-19-2023 Telephone encounter Note Error-Pt called for results, gave to Prisca [facility] 11-15-2023 History of Present illness Narrative Subjective Patient ID: Tom Khan is a 68 y.o. male. Chief Complaint Chief Complaint Patient presents with Follow-up New pt/establish care SOB/feet hurt HPI HPI New pt here to establish care Here with EMR reviewed in detail - neurosurgery notes, cardiology notes, prior imaging, prior PCP notes, endo notes Past histories, medications, allergies, immunizations reviewed PMH CABG and CAD s/p STEMI w/ stents at [facility] in October. LVEF 55%. Has f/u with Dr. Watts January 21. Sees Dr. Farfan (psychiatry [facility]) Recent back surgery - Dr. Charles S/P L4-5 posterior laminectomy and fusion performed on 09/21/23, cauda equina symptoms prior C/o intermittent RUQ pain, dyspnea, BL lower extremity edema, voiding issues since C/o shoulder pain, limited rom Denies history of heart failure, review of 01/2023 echo shows preserved EF diastolic dysfunction Diabetic - sees endo Past Medical History Past Medical History: Diagnosis Date Angina pectoris [place] Anxiety Arthritis osteoarthritis Back pain Cardiomegaly Cataract CHF (congestive heart failure) ([facility]) Coronary artery disease Status post CABG COVID-19 Dental disease crowns Depression Deviated septum Diabetes mellitus type 2, controlled ([facility]) Difficult intravenous access OSEI (dyspnea on exertion) Esophageal stricture Fractures Gallstone GERD (gastroesophageal reflux disease) H/O esophagogastroduodenoscopy dilatation Heart attack ([facility]) 10/06/2023 4 stints Hiatal hernia Hyperlipidemia Hypertension Hyponatremia Incontinence of bowel Incontinence of urine 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 Mild cognitive impairment Obesity Obsessive compulsive disorder Peripheral neuropathy Pneumonia PONV (postoperative nausea and vomiting) Pulmonary vascular congestion Salmonella Sleep apnea cpap Urinary retention Visual impairment glasses retinal detatchment Vitamin D deficiency Vitreous hemorrhage ([facility]) Vocal cord granuloma Past Surgical History Past Surgical History: Procedure Laterality Date BACK SURGERY Left Circumferential 09/21/2023 fusion CATARACT EXTRACTION, BILATERAL Bilateral COLONOSCOPY 2012 CORONARY ARTERY BYPASS GRAFT ESOPHAGOGASTRODUODENOSCOPY dilatation EYE SURGERY Bilateral LAMINECTOMY LUMBAR SINGLE LEVEL / L4/5 N/A 09/21/2023 Performed by Bobbi Steen MD at [facility] POSTERIOR LAMINECTOMY FUSION LUMBAR SINGLE LEVEL / L4/5 N/A 09/21/2023 Performed by Bobbi Steen MD at [facility] [place] REPLACEMENT TOTAL KNEE Bilateral ROTATOR CUFF REPAIR SEPTOPLASTY Family History Family History Problem Relation Age of Onset Diabetes Mother Hypertension Mother Heart disease Father Hyperlipidemia Father Hypertension Father Social History Social History Socioeconomic History Marital status: Spouse name: Not on file Number of children: Not on file Years of education: Not on file Highest education level: Not on file Occupational History Not on file Tobacco Use Smoking status: Never Smokeless tobacco: Never Vaping Use Vaping Use: Never used Passive vaping exposure: Yes Substance and Sexual Activity Alcohol use: Not Currently Drug use: No Sexual activity: Yes Partners: Female Other Topics Concern Not on file Social History Narrative Not on file Social Determinants of Health Financial Resource Strain: Low Risk (04/17/2023) Overall Financial Resource Strain (CARDIA) Difficulty of Paying Living Expenses: Not very hard Food Insecurity: No Food Insecurity (11/26/2023) Hunger Screening Food Insecurity - Worry: Never True Food Insecurity - Inability: Never True Transportation Needs: No Transportation Needs (04/17/2023) PRAPARE - Transportation Lack of Transportation (Medical): No Lack of Transportation (Non-Medical): No Physical Activity: Sufficiently Active (04/17/2023) Exercise Vital Sign Days of Exercise per Week: 4 days Minutes of Exercise per Session: 60 min Stress: Stress Concern Present (04/17/2023) [employer] - Occupational Stress Questionnaire Feeling of Stress : Rather much Social Connections: Socially Integrated (04/17/2023) Social Connection and Isolation Panel [NHANES] Frequency of Communication with Friends and Family: More than three times a week Frequency of Social Gatherings with Friends and Family: More than three times a week Attends Jainism Services: More than 4 times per year Active Member of Clubs or Organizations: Yes Attends Club or Organization Meetings: Never Marital Status: Interpersonal Safety: Not At Risk (04/17/2023) Humiliation, Afraid, Rape, and Kick questionnaire Fear of Current or Ex-Partner: No Emotionally Abused: No Physically Abused: No Sexually Abused: No Housing Instability: Low Risk (04/17/2023) Housing Instability Housing Instability: No Allergies No Known Allergies Current Medications Current Outpatient Medications Medication Sig Dispense Refill acetaminophen (TYLENOL EXTRA STRENGTH) 500 mg tablet Every 8 hours aspirin 81 mg Daily atorvastatin (LIPITOR) 80 mg tablet Every evening carvediloL (COREG) 12.5 mg tablet Take 1 tablet (12.5 mg total) by mouth in the morning and 1 tablet (12.5 mg total) before bedtime. 180 tablet 1 cyanocobalamin (VITAMIN B-12) 100 MCG tablet Take 10 tablets (1,000 mcg total) by mouth in the morning. DULoxetine (CYMBALTA) 30 mg capsule TAKE 1 CAPSULE BY MOUTH EVERY DAY DULoxetine (CYMBALTA) 60 mg capsule Take 1 capsule (60 mg total) by mouth in the morning. 60 mg in morning 30 at night. empagliflozin (JARDIANCE ORAL) Take 25 mg by mouth every morning. insulin glargine U-300 conc (TOUJEO MAX U-300 SOLOSTAR) 300 unit/mL (3 mL) insulin pen Inject 66 Units under the skin in the morning. 60 mL 1 insulin lispro (HumaLOG) 100 unit/mL insulin pen Inject 1-5 Units under the skin 4 (four) times a day with meals and nightly. For blood glucose (BG) 151-200= 1 unit; BG 201-250 = 2 units; BG 251-300 = 3 units; BG 301-350 = 4 units; BG 351-400 = 5 units. Notify prescriber if BG below 60 or greater than 400 mg/dL 15 mL 12 LORazepam (ATIVAN) 0.5 mg tablet Take 1mg in the morning and 0.5mg at bedtime 15 tablet 0 losartan (COZAAR) 25 mg tablet Take 1 tablet (25 mg total) by mouth in the morning. melatonin (CIRCADIN) tablet Take 2 tablets (6 mg total) by mouth nightly as needed. 1-2 tabs as needed nightly nitroglycerin (NITROSTAT) 0.4 MG SL tablet Q5M omega 9-huy-xll-fish oil (Fish OiL) 300-1,000 mg capsule Take by mouth. polyethylene glycol (GLYCOLAX) 17 gram packet Take 17 g by mouth in the morning. spironolactone (ALDACTONE) 25 mg tablet Daily ticagrelor (BRILINTA) 90 mg tablet Twice daily cholecalciferol, vitamin D3, 5,000 units tablet Take 1 tablet (5,000 Units total) by mouth in the morning. (Patient not taking: Reported on 10/15/2023) tamsulosin (FLOMAX) 0.4 mg capsule Take 2 pills by mouth prior to bedtime 180 capsule 2 No current facility-administered medications for this visit. Review of Systems Review of Systems Constitutional: Negative for unexpected weight change. Respiratory: Positive for shortness of breath. Negative for cough. Cardiovascular: Negative for chest pain. Gastrointestinal: Positive for abdominal pain. Objective Vitals BP 118/67 (BP Site: Left Arm, BP Postition: Sitting, BP CUFF SIZE: L (13-17 inches)) Pulse 68 Temp 36.5 C (97.7 F) (Temporal) Resp 20 Ht 177.8 cm (5' 10 ) Wt 114.8 kg (253 lb) SpO2 98% BMI 36.30 kg/m Physical Exam Physical Exam Vitals and nursing note reviewed. Constitutional: Appearance: He is obese. He is not ill-appearing. HENT: Head: Normocephalic and atraumatic. Right Ear: Hearing normal. Left Ear: Hearing normal. Mouth/Throat: Lips: [place]. Pharynx: Oropharynx is clear. Eyes: General: No scleral icterus. Neck: Thyroid: No thyroid mass or thyromegaly. Vascular: No carotid bruit. Cardiovascular: Rate and Rhythm: Normal rate and regular rhythm. Heart sounds: Normal heart sounds, S1 normal and S2 normal. No murmur heard. Pulmonary: Effort: Pulmonary effort is normal. Breath sounds: Normal breath sounds. No decreased breath sounds, wheezing, rhonchi or rales. Abdominal: General: Abdomen is protuberant. Bowel sounds are normal. Palpations: Abdomen is soft. There is no pulsatile mass. Tenderness: There is no abdominal tenderness. Musculoskeletal: Right lower leg: Edema present. Left lower leg: Edema present. Lymphadenopathy: Cervical: No cervical adenopathy. Skin: General: Skin is warm and dry. Neurological: Mental Status: He is alert and oriented to person, place, and time. Motor: Motor function is intact. Gait: Gait is intact. Psychiatric: Attention and Perception: Attention normal. Mood and Affect: Mood normal. Speech: Speech normal. Behavior: Behavior normal. Behavior is cooperative. Thought Content: Thought content normal. Cognition and Memory: Cognition normal. Judgment: Judgment normal. Recent Pertinent Labs and Radiology Assessment/Plan 1. Type 2 diabetes mellitus with diabetic peripheral angiopathy without gangrene, with long-term current use of insulin ([facility]) 2. OSEI (dyspnea on exertion) - CBC auto differential; Future - Comprehensive metabolic panel; Future - X-ray chest 2 views; Future - B-type natriuretic peptide; Future 3. Bilateral lower extremity edema - Vas venous duplex lwr bilateral; Future - TSH with Reflex; Future 4. RUQ abdominal pain - Ultrasound abdomen limited; Future 5. Tendinopathy of left rotator cuff - Ambulatory referral to Physical Therapy (Non-[facility]); Future 6. Mixed hyperlipidemia - Lipid panel; Future 7. Screening PSA (prostate specific antigen) - Prostatic specific antigen screen; Future 8. Primary hypertension 9. CAD, multiple vessel 10. ST elevation myocardial infarction (STEMI) of inferior wall ([facility]) 11. Moderate episode of recurrent major depressive disorder ([facility]) Return in about 3 weeks (around 12/06/2023) for Recheck. Medications Discontinued During This Encounter Medication Reason gabapentin (NEURONTIN) 300 mg capsule Therapy completed There are no Patient Instructions on file for this visit. TERRY Monteiro 12/02/23 1507 documented in this encounter [facility] 11-01-2023 History of Present illness Narrative Images from the original note were not included. [facility] [address] [place] [address], [address] [place] [address] * CHART NOTE ? 11/06/2023 Patient: Tom Khan 1955 [id number] Physician: Bobbi Steen MD CHIEF COMPLAINT Post-op HISTORY OF PRESENT ILLNESS 68 y.o. male presents to the office today as a post-op patient S/P L4-5 posterior laminectomy and fusion performed on 09-21-2023. Patient reports that he has been doing better overall but is still experiencing some residual numbness in the BLE. He advises that his incontinence has improved significantly. Patient advised to complete physical therapy to strengthen his core and legs. Denies loss of salt maker strength, saddle anesthesia, urinary or bowel dysfunction, weakness, radicular symptoms, and loss of balance. Patient does not use an assistive device for ambulation. Patient is diabetic and a never smoker. ALLERGIES No Known Allergies MEDICATIONS Current Outpatient Medications: acetaminophen (TYLENOL EXTRA STRENGTH) 500 mg tablet, Every 8 hours, Disp: , Rfl: aspirin 81 mg, Daily, Disp: , Rfl: atorvastatin (LIPITOR) 80 mg tablet, Every evening, Disp: , Rfl: carvediloL (COREG) 12.5 mg tablet, Take 1 tablet (12.5 mg total) by mouth in the morning and 1 tablet (12.5 mg total) before bedtime., Disp: 180 tablet, Rfl: 1 cyanocobalamin (VITAMIN B-12) 100 MCG tablet, Take 10 tablets (1,000 mcg total) by mouth in the morning., Disp: , Rfl: DULoxetine (CYMBALTA) 30 mg capsule, TAKE 1 CAPSULE BY MOUTH EVERY DAY, Disp: , Rfl: DULoxetine (CYMBALTA) 60 mg capsule, Take 1 capsule (60 mg total) by mouth in the morning. 60 mg in morning 30 at night., Disp: , Rfl: empagliflozin (JARDIANCE ORAL), Take 25 mg by mouth every morning., Disp: , Rfl: insulin glargine U-300 conc (TOUJEO MAX U-300 SOLOSTAR) 300 unit/mL (3 mL) insulin pen, Inject 66 Units under the skin in the morning., Disp: 60 mL, Rfl: 1 insulin lispro (HumaLOG) 100 unit/mL insulin pen, Inject 1-5 Units under the skin 4 (four) times a day with meals and nightly. For blood glucose (BG) 151-200= 1 unit; BG 201-250 = 2 units; BG 251-300 = 3 units; BG 301-350 = 4 units; BG 351-400 = 5 units. Notify prescriber if BG below 60 or greater than 400 mg/dL, Disp: 15 mL, Rfl: 12 LORazepam (ATIVAN) 0.5 mg tablet, Take 1mg in the morning and 0.5mg at bedtime, Disp: 15 tablet, Rfl: 0 losartan (COZAAR) 25 mg tablet, Take 1 tablet (25 mg total) by mouth in the morning., Disp: , Rfl: melatonin (CIRCADIN) tablet, Take 1 tablet (3 mg total) by mouth nightly as needed. 1-2 tabs as needed nightly, Disp: , Rfl: nitroglycerin (NITROSTAT) 0.4 MG SL tablet, Q5M, Disp: , Rfl: omega 7-pwx-lin-fish oil (Fish OiL) 300-1,000 mg capsule, Take by mouth., Disp: , Rfl: polyethylene glycol (GLYCOLAX) 17 gram packet, Take 17 g by mouth in the morning., Disp: , Rfl: spironolactone (ALDACTONE) 25 mg tablet, Daily, Disp: , Rfl: tamsulosin (FLOMAX) 0.4 mg capsule, Take 1 capsule (0.4 mg total) by mouth nightly., Disp: 90 capsule, Rfl: 1 ticagrelor (BRILINTA) 90 mg tablet, Twice daily, Disp: , Rfl: cholecalciferol, vitamin D3, 5,000 units tablet, Take 1 tablet (5,000 Units total) by mouth in the morning. (Patient not taking: Reported on 10/15/2023), Disp: , Rfl: gabapentin (NEURONTIN) 300 mg capsule, Take 1 capsule (300 mg total) by mouth 3 (three) times a day for 30 days., Disp: 90 capsule, Rfl: 3 VITAL SIGNS BP 131/82 Pulse 72 Ht 177.8 cm (5' 10 ) Wt 112.5 kg (248 lb) BMI 35.58 kg/m PHYSICAL EXAMINATION Neurologic Exam Mental Status Oriented to person, place, and time. Level of consciousness: alert Knowledge: good. Motor Exam Muscle bulk: normal Overall muscle tone: normal Strength Strength 5/5 throughout. Sensory Exam Light touch normal. Gait, Coordination, and Reflexes Reflexes Right brachioradialis: 2+ Left brachioradialis: 2+ Right biceps: 2+ Left biceps: 2+ Right triceps: 2+ Left triceps: 2+ Right patellar: 2+ Left patellar: 2+ Right achilles: 2+ Left achilles: 2+ Right salt maker: 2+ Left salt maker: 2+ Right Moon: absent Left Moon: absent Right ankle clonus: absent Left ankle clonus: absent Mildly antalgic gait. MRI / IMAGES XR spine lumbar 09-22-2023 IMPRESSION: There is no gross acute osseous injury. Satisfactory recent postsurgical changes My read: I reviewed the imaging studies independently and critical findings were anotated for the patient. IMPRESSION / PLAN 68 y.o. male presents to the office today as a post-op patient S/P L4-5 posterior laminectomy and fusion performed on 09-21-2023. Patient reports that he has been doing better overall but is still experiencing some residual numbness in the BLE. He advises that his incontinence has improved significantly. Patient advised to complete physical therapy to strengthen his core and legs. PLAN: Refer for PT and aquatic therapy. Gabapentin 300 mg tid . Refer to Urology. Lumbar flexion/extension x-rays. Follow up after PT and aquatic therapy. Electronically Signed By: Bobbi Steen MD This note was created with the assistance of a speech recognition program with the goal of generating a timely record of the patient encounter. Inadvertent computerized food service attendant errors related to syntax, spelling, homophones, and/or inaudibility may be present. Scribe Statement: Scribed for and in the presence of Bobbi Steen MD by Chaz Clark. Provider Statement: I, Bobbi Steen MD personally performed the services described in the documentation, as scribed by Chaz Clark in my presence, and it is both accurate and complete [facility] [employer] 11-01-2023 Instructions PRASHANT Rockwell - 11/01/2023 1:30 PM EST Patient was seen by Dr. Steen. Patient was given an order for physical and aquatic therapy. Neurontin 300mg. 1 tablet every 8 hours. #90 30 day supply, 3 refills. Lumbar spine Flex/Ext x ray. A referral to urology. Patient will follow up after Aquatic and physical therapy. JA documented [facility]23 Evaluation + Plan note Associated Problem(s): Obesity (BMI 30-39.9) Reviewed the merits of healthy lifestyle choices on overall cardiovascular health. [facility] Work Phone: 10-22-2023 Evaluation + Plan note Associated Problem(s): Diabetes mellitus (CMS/HCC) On statin/ARB Reports most recent hemoglobin A1c 8.0 [facility] Work Phone: 10-22-2023 Miscellaneous Notes Associated Problem(s): Obesity (BMI 30-39.9) Reviewed the merits of healthy lifestyle choices on overall cardiovascular health. Associated Problem(s): Diabetes mellitus ([facility]) On statin/ARB Reports most recent hemoglobin A1c 8.0 Associated Problem(s): Ischemic cardiomyopathy October 2023 TTE LVEF 55% Inferior hypokinesis Left atrium mild MR trace Associated Problem(s): Hypertension Slightly elevated in office. Report home health care nurse - systolic blood pressure 149 Associated Problem(s): Hyperlipidemia Tolerating high intensity statin Associated Problem(s): CAD, multiple vessel 2008 CABG x5 Oct 06, 2023: In-house inferior STEMI while in inpatient rehab following L4-L5 laminectomy. Managed emergently by Dr. Watts. Proximal, mid/distal and distal PDA of RCA PCI/RHINA x 3 Ramus PCI/RHINA Y graft to PITTS-diagonal - LAD: patent GRISELDA-OM patent SVG-RCA occluded SVG-circumflex/? OM occluded documented in this encounter [facility] Work Phone: 10-22-2023 Evaluation + Plan note Associated Problem(s): Ischemic cardiomyopathy October 2023 TTE LVEF 55% Inferior hypokinesis Left atrium mild MR trace [facility] Work Phone: 10-22-2023 Evaluation + Plan note Associated Problem(s): Hypertension Slightly elevated in office. Report home health care nurse - systolic blood pressure 149 [facility] Work Phone: 10-22-2023 Evaluation + Plan note Associated Problem(s): Hyperlipidemia Tolerating high intensity statin [facility] Work Phone: 10-22-2023 Evaluation + Plan note Associated Problem(s): CAD, multiple vessel 2009 CABG x5 Oct 06, 2023: In-house inferior STEMI while in inpatient rehab following L4-L5 laminectomy. Managed emergently by Dr. Watts. Proximal, mid/distal and distal PDA of RCA PCI/RHINA x 3 Ramus PCI/RHINA Y graft to PITTS-diagonal - LAD: patent GRISELDA-OM patent SVG-RCA occluded SVG-circumflex/? OM occluded [facility] Work Phone: 10-17-2023 History of Present illness Narrative Chief Complaint Seem to be okay Reason for Visit Patient presents to the office today for outpatient follow-up for hospital follow-up. Patient was recently hospitalized at [facility]. The patient was seen in Cardiology consult with subsequent cardiovascular management by [facility]. Hospitalization records have been reviewed. Reason for Cardiology Consultation: Inhouse inferior STEMI Consulting Javascript Application Developer: Dr. Watts Cardiovascular testing: Cardiac cath subsequent coronary intervention, echocardiogram Changes to cardiovascular medical regimen at time of discharge: Brilinta, Lipitor, Cozaar, Aldactone, aspirin. Discharge disposition: Home Presents today ambulatory with steady gait. Accompanied by spouse History of Present Illness Patient is a pleasant 68-year-old gentleman who presents to the office today without voiced cardiovascular complaints. He was in inpatient rehab at [facility] where he noted a sudden onset of chest burning radiating into both arms. In retrospect he reports that over the last couple months he may have been having a little heartburn , was not utilizing nitroglycerin. He has actually been having difficulty with low back pain with recent diagnosis of cauda equina and the back pain has been limiting his physical activity. He denies any recurrence of chest burning since discharge. His right radial cath site has healed without adverse sequela. He remains fatigued. Concomitant medication: Brilinta: No dyspnea; he has insurance coverage Lipitor: No myalgia No complaints of hypotension. Patient reports that overall has no complaint(s) of chest pain, chest pressure/discomfort, dyspnea, irregular heart beat, and lower extremity edema or has complaint(s) of fatigue. Daily activity: He did walk 1 mile yesterday. Has home physical therapy and Occupational Therapy due to recent surgical procedure. Is not working. No cardiac rehab due to current home care. Would also request clearance from surgeon before starting, he will be seeing him on November 01, 2023. Reports being told not to bend, lift or twist following surgical procedure. Once cleared from their standpoint the will notify me and I will place orders. The importance of secondary prevention reviewed: HTN: Borderline in the office, will increase Aldactone (they are having a difficult time splitting the pills) HLD: Tolerating high intensity statin, labs in 2 months DM: Optimally treated Smoker: Denies BMI: Reviewed the merits of healthy lifestyle choices on overall cardiovascular health. Obstructive sleep apnea with very compliance with CPAP treatment. Discussed the dynamic nature of coronary artery disease and the importance of seeking medical attention if new symptoms arise. Review of Systems Constitutional: Positive for malaise/fatigue. Cardiovascular: Negative for chest pain, dyspnea on exertion, irregular heartbeat, leg swelling, near-syncope, orthopnea, palpitations, paroxysmal nocturnal dyspnea and syncope. Visit Vitals BP 142/82 (BP Location: Left arm, Patient Position: Sitting) Pulse 76 Ht 1.803 m (5' 11 ) Wt 113 kg (249 lb) BMI 34.73 kg/m Smoking Status Never BSA 2.38 m Physical Exam Vitals and nursing note reviewed. Constitutional: Appearance: Normal appearance. Cardiovascular: Rate and Rhythm: Normal rate and regular rhythm. Heart sounds: Normal heart sounds. Pulmonary: Effort: Pulmonary effort is normal. Breath sounds: Normal breath sounds. Musculoskeletal: Cervical back: Full passive range of motion without pain. Right lower leg: No edema. Left lower leg: No edema. Skin: General: Skin is cool. Neurological: Mental Status: He is alert and oriented to person, place, and time. Psychiatric: Attention and Perception: Attention normal. Mood and Affect: Mood normal. Behavior: Behavior is cooperative. No Known Allergies Current Outpatient Medications Medication Instructions aspirin 81 mg, oral, Daily atorvastatin (LIPITOR) 80 mg, oral, Daily carvedilol (COREG) 12.5 mg, oral, 2 times daily with meals cyanocobalamin (VITAMIN B-12) 100 mcg, oral, Daily DULoxetine (CYMBALTA) 30 mg, oral, Daily, Take with 60mg dose DULoxetine (CYMBALTA) 60 mg, oral, Daily, Take with 30mg dose empagliflozin (JARDIANCE) 25 mg, oral, Daily insulin glargine,hum.rec.anlog (TOUJEO MAX U-300 SOLOSTAR SUBQ) 66 Units, subcutaneous, Nightly, Take as directed per insulin instructions. insulin lispro protamin-lispro (HumaLOG Mix 50-50 KwikPen) 100 unit/mL (50-50) injection subcutaneous, 2 times daily with meals, Take as directed per insulin instructions. Per sliding scale LORazepam (ATIVAN) 1 mg, oral, Take 0.5 tab every morning and 1 tablet every evening losartan (COZAAR) 25 mg, oral, Daily melatonin 3 mg capsule 2 capsules, oral, Nightly nitroglycerin (NITROSTAT) 0.4 mg, sublingual, Every 5 min PRN, May repeat dose every 5 minutes for up to 3 doses total. omega 3-ofx-igo-fish oil (Fish OiL) 1,000 mg (120 mg-180 mg) capsule 1 capsule, oral, Daily spironolactone (ALDACTONE) 25 mg, oral, Daily tamsulosin (FLOMAX) 0.4 mg, oral, Daily ticagrelor (BRILINTA) 90 mg, oral, 2 times daily Assessment: CAD, multiple vessel 2009 CABG x5 Oct 06, 2023: In-house inferior STEMI while in inpatient rehab following L4-L5 laminectomy. Managed emergently by Dr. Watts. Proximal, mid/distal and distal PDA of RCA PCI/RHINA x 3 Ramus PCI/RHINA Y graft to PITTS-diagonal - LAD: patent GRISELDA-OM patent SVG-RCA occluded SVG-circumflex/? OM occluded Hyperlipidemia Tolerating high intensity statin Hypertension Slightly elevated in office. Report home health care nurse - systolic blood pressure 149 Ischemic cardiomyopathy October 2023 TTE LVEF 55% Inferior hypokinesis Left atrium mild MR trace Diabetes mellitus (CMS/HCC) On statin/ARB Reports most recent hemoglobin A1c 8.0 Obesity (BMI 30-39.9) Reviewed the merits of healthy lifestyle choices on overall cardiovascular health. Plan: Through informed decision making process incorporating patients unique circumstances, the following treatment plan will be initiated: 1. Prescription drug management of cardiovascular medication for efficacy, adherence to treatment, side effect assessment and polypharmacy. Current treatment clinically warranted and to continue with following modifications: - Increase spironolactone 25mg daily 2. Chem6 in one week 3. Lipids/AST/ALT in 2 months 4. Let me know when surgeon says that cardiac rehab would be ok 5. Return for follow-up; in the interim, contact the office if new symptoms arise. Dr. Watts 3 months Chip Gavin MSN, KNOTTER-MIGRATION AGENT, PMHNP-[facility] Please excuse any errors in grammar or translation related to this dictation. Voice recognition software was utilized to prepare this document. documented in this encounter [facility] Work Phone: 10-17-2023 Instructions TERRY Trinh - 10/17/2023 12:30 PM EST Please bring all medicines, vitamins, and herbal supplements with you when you come to the office. Prescriptions will not be filled unless you are compliant with your follow up appointments or have a follow up appointment scheduled as per instruction of your physician. Refills should be requested at the time of your visit. PLAN: Through informed decision making process incorporating patients unique circumstances, the following treatment plan will be initiated: 1. Prescription drug management of cardiovascular medication for efficacy, adherence to treatment, side effect assessment and polypharmacy. Current treatment clinically warranted and to continue with following modifications: - Increase spironolactone 25mg daily 2. Chem6 in one week 3. Lipids/AST/ALT in 2 months 4. Let me know when surgeon says that cardiac rehab would be ok 5. Return for follow-up; in the interim, contact the office if new symptoms arise. Dr. Watts 3 months documented in this encounter [facility] Work Phone: 10-15-2023 History of Present illness Narrative Subjective Patient ID: Tom Khan is a 68 y.o. male. He was discharged from [facility] this Sunday after he had his DC, prior to that he was in rehab for his laminectomy Last night he feels like he had his first normal bowel movement He is slowly getting control of both his bowel and bladder post laminectomy, he still has a little leakage, but at this point it is a little more problem with retention and getting his stream initiated, there was a prescription for flomax in his discharge orderes but this was never started He did have several bladder scans during his stay but none since his discharge, he does not have any f/u set up for urology They have their next apt with Dr Pelaez the neurosurgeon on Oct He will see Dr Guevara the change control analyst on the Oct 17 Blood sugars have been running 150 - 200 - he has been off of ozempic for 6 months and it has been awhile since they have seen endocrine [facility] He had the initial assessment for PT intake at home and will likely being home PT for his back and OP cardiac PT as well He has been gradually increasing his home activity as discussed with his neurosurgeon and change control analyst His level of pain is subsiding and he is no longer on any of the narcotic pain relievers He is using miralax to manage his bowels The following portions of the patient's history were reviewed and updated as appropriate: allergies, current medications, past family history, past medical history, past social history, past surgical history, problem list, and medication reconciliation was completed including current medication and post discharge medication. Review of Systems Constitutional: Positive for activity change. HENT: Negative. Eyes: Negative. Respiratory: Negative. Cardiovascular: Negative. Gastrointestinal: Positive for constipation. Genitourinary: Positive for difficulty urinating. Musculoskeletal: Positive for arthralgias, back pain and gait problem. Skin: Negative. Psychiatric/Behavioral: Positive for agitation, decreased concentration and dysphoric mood. The patient is nervous/anxious. Objective Physical Exam Vitals and nursing note reviewed. Exam conducted with a catalog librarian present (). Constitutional: General: He is not in acute distress. Eyes: Conjunctiva/sclera: Conjunctivae normal. Neck: Vascular: No carotid bruit. Cardiovascular: Rate and Rhythm: Normal rate and regular rhythm. Heart sounds: Normal heart sounds. No murmur heard. Pulmonary: Effort: Pulmonary effort is normal. Breath sounds: Normal breath sounds. Musculoskeletal: Right lower leg: No edema. Left lower leg: No edema. Lymphadenopathy: Cervical: No cervical adenopathy. Skin: Capillary Refill: Capillary refill takes less than 2 seconds. Neurological: Mental Status: He is alert and oriented to person, place, and time. Psychiatric: Attention and Perception: Attention normal. Mood and Affect: Affect is blunt. Behavior: Behavior is slowed. Cognition and Memory: Cognition normal. Assessment/Plan Tom was seen today for transition care. Diagnoses and all orders for this visit: Status post lumbar laminectomy Chronic diastolic CHF (congestive heart failure) ([facility]) - carvediloL (COREG) 12.5 mg tablet; Take 1 tablet (12.5 mg total) by mouth in the morning and 1 tablet (12.5 mg total) before bedtime. ST elevation myocardial infarction (STEMI) of inferior wall ([facility]) Type 2 diabetes mellitus with diabetic peripheral angiopathy without gangrene, with long-term current use of insulin ([facility]) Primary hypertension History of urinary retention - tamsulosin (FLOMAX) 0.4 mg capsule; Take 1 capsule (0.4 mg total) by mouth nightly. Other constipation Other orders - insulin glargine U-300 conc (TOUJEO MAX U-300 SOLOSTAR) 300 unit/mL (3 mL) insulin pen; Inject 66 Units under the skin in the morning. At this time he has all his appts set up with the exception of his supervisor insulation, this he will need to set up but as he had his last A1c in Aug it likely would be best to wait until early to Mid November for this as this will give a better picture of his diabetes and for now his diabetes is at least stable He does likely need to see a urologist also at some point and they are going to confer with Dr Pelaez in regards to this at their apt on He is keeping his apts with Psych and cardiology He will be getting Home Health set up for HEP and also getting cardiact rehab set up He is understanding now how important his statin is and is taking it We reviewed and updated all of his medications SANDI Antoine 10/15/[id number] documented in this encounter [email or web address] 10-09-2023 Hospital Discharge instructions Ambulatory OrdersInitiate Home Health Time Frame: 10/09/23, Location: Determined By Patient Additional Instructions DISCHARGE INSTRUCTIONS FOR ANGIOPLASTY/CORONARY/PERIPHERAL/STENT IMPLANT FOR ADULT ANTICOAGULATION -Since the greatest risk of a blood clot forming with the stent occurs in the first 2-3 weeks after implantation, you will need to take anticoagulants for at least 12-18 months. ANTICOAGULATION MEDICATION Aspirin 81mg once a day, Ticagrelor (Brilinta) 90mg twice a day STATIN MEDICATION: Atorvastatin (Lipitor) 80 mg Drug-Eluting Stent (RHINA) DO NOT discontinue Brilinta/Aspirin during the first few months regardless of what you are advised by your family doctor or pharmacist, without first calling the change control analyst who implanted the stent. If you require pain relief during this time, please take only ACETAMINOPHEN (TYLENOL)- NO additional aspirin or ibuprofen. DISCHARGE ACTIVITIES ARE FOLLOWS: First week after discharge: -Take it easy at home, no strenuous activity. -Do not lift or pull objects over 10-15 pounds, including children, and groceries for four weeks. If puncture site is at wrist do NOT lift more than three pounds for three days. - May walk up stairs. -May shower. -No excessive scrubbing of the affected site (groin). -May ride in car. -May resume sexual intercourse after 1-2 weeks. -No MRI for 12 days. -May drive in 4-7 days. -If puncture site is at the wrist do not manipulate the wrist for 24 hours, and no soaking wrist for three days. Second Week: -May take a bath -May start walking 3 times a week for 15-20 minutes at a leisurely pace. You should be able to carry on a conversation comfortably without feeling winded. -No strenuous activity as in jogging, running, weight lifting, stair steppers, etc. until the change control analyst approves these activities. Check with the change control analyst on your first follow-up visit. CALL YOUR PHYSICIAN at [phone]: -If bleeding should occur from the catheter insertion site- apply pressure to the site then immediately call us. -Report any fever, redness, drainage, increased swelling, or firmness at the catheter insertion site. Some bruising or slight swelling may be present at the time of discharge. -Should arm or leg become cold, numb, white, or blue, contact the change control analyst immediately. -IF you should experience episodes of angina, e.g. chest discomfort, heaviness, tightness, pressure burning with or without radiation to the neck, jaw, arms or back- use 1 Nitrostat tablet under your tongue every 5-10 minutes and up to three tablets. IF NO RELIEF, CALL 911 or GO TO THE NEAREST EMERGENCY ROOM. -Please notify our office if you have recurrent angina. The attending change control analyst or [facility] nurse clinician should provide you with specific instructions regarding activity, diet, medications, and further follow up for you. Follow the medication instructions provided on your discharge. If the dosages and instructions on this sheet differ from the dosage and instructions on the bottle, follow the instructions on the bottle. [facility] is not responsible for incorrect prescription information provided by the patient during their visit. Do not stop your medications without consulting your health care provider. Please take the list with you to your next doctor's appointment. HOME HEALTH TO MANAGE: Nursing/PT/OT to eval and treat Monitor VS per protocol--HTN Monitor Cardiac assessment--Stemi Assist with glucose control Assist with medication management and provide medication education Provide education on high risk fall precautions [facility] Work Phone: 09-24-2023 Miscellaneous Notes ----- Message from Gilles Dominguez PA-C sent at 09/22/2023 10:47 AM EST ----- Fu 1-2 months sp hospitalization Still admitted.PRASHANT Gamboa Still admitted.PRASHANT Gamboa PT STILL ADMITTED documented in this encounter [facility] 09-24-2023 Telephone encounter Note ----- Message from Gilles Dominguez PA-C sent at 09/22/2023 10:47 AM EST ----- Fu 1-2 months sp hospitalization [facility] 09-24-2023 Telephone encounter Note Still admitted.PRASHANT [facility]oa [facility] Telephone encounter Note Still admitted.PRASHANT Gamboa [facility] 09-24-2023 Telephone encounter Note PT STILL ADMITTED [facility] 09-19-2023 History of Present illness Narrative [facility] [address] [place] [id number] Patient: Tom Khan Sex: male : 1955 Age: 67 y.o. PCP: Tom Paniagua Jr, DO 09/19/2023 Tom Khan is here for a(n) initial consultation. Chief Complaint Patient presents with Back Pain HPI: Physical therapy August 2023 at [facility] finished in September 2023, now currently attends aquatic therapy Dr Nance, chiropractor, loosened it up some but not as beneficial as previous years Back Pain This is a chronic problem. Episode onset: May 2023. The problem occurs intermittently. The problem has been gradually worsening since onset. The pain is present in the lumbar spine. The quality of the pain is described as aching, burning and cramping. Radiates to: right leg. Pain scale: pain ranges from 5-8/10, varies. The pain is moderate. The pain is The same all the time. Exacerbated by: standing, walking, stairs. Stiffness is present: not too much Associated symptoms include leg pain (right leg), numbness (right leg, foot) and weakness (bilateral legs, pt almost fell, using wheelchair now). Pertinent negatives include no chest pain or fever. Treatments tried: ibuprofen, tylenol with moderate relief; heat with min relief. The effect of pain on patient's ADLS: Moderate Impairment. Past Medical History: Diagnosis Date Coronary artery disease Status post CABG Diabetes mellitus ([facility]) Gallstone Hyperlipidemia Hypertension Vitreous hemorrhage ([facility]) Past Surgical History: Procedure Laterality Date COLONOSCOPY 2013 CORONARY ARTERY BYPASS GRAFT REPLACEMENT TOTAL KNEE Bilateral No Known Allergies Family History Problem Relation Age of Onset Diabetes Mother Hypertension Mother Heart disease Father Hyperlipidemia Father Hypertension Father Social History Socioeconomic History Marital status: Spouse name: Not on file Number of children: Not on file Years of education: Not on file Highest education level: Not on file Occupational History Not on file Tobacco Use Smoking status: Never Smokeless tobacco: Never Vaping Use Vaping Use: Never used Substance and Sexual Activity Alcohol use: No Drug use: No Sexual activity: Yes Partners: Female Other Topics Concern Not on file Social History Narrative Not on file Social Determinants of Health Financial Resource Strain: Low Risk (04/17/2023) Overall Financial Resource Strain (CARDIA) Difficulty of Paying Living Expenses: Not very hard Food Insecurity: No Food Insecurity (09/19/2023) Hunger Screening Food Insecurity - Worry: Never True Food Insecurity - Inability: Never True Transportation Needs: No Transportation Needs (04/17/2023) PRAPARE - Transportation Lack of Transportation (Medical): No Lack of Transportation (Non-Medical): No Physical Activity: Sufficiently Active (04/17/2023) Exercise Vital Sign Days of Exercise per Week: 4 days Minutes of Exercise per Session: 60 min Stress: Stress Concern Present (04/17/2023) [employer] - Occupational Stress Questionnaire Feeling of Stress : Rather much Social Connections: Socially Integrated (04/17/2023) Social Connection and Isolation Panel [NHANES] Frequency of Communication with Friends and Family: More than three times a week Frequency of Social Gatherings with Friends and Family: More than three times a week Attends Jainism Services: More than 4 times per year Active Member of Clubs or Organizations: Yes Attends Club or Organization Meetings: Never Marital Status: Interpersonal Safety: Not At Risk (04/17/2023) Humiliation, Afraid, Rape, and Kick questionnaire Fear of Current or Ex-Partner: No Emotionally Abused: No Physically Abused: No Sexually Abused: No Review of Systems Constitutional: Positive for fatigue (pt is sleepy at todays office visit, caregiver says this is an ongoing issue and PCP is aware). Negative for chills and fever. HENT: Negative. Eyes: Negative. Respiratory: Negative. Negative for cough and shortness of breath. Cardiovascular: Negative. Negative for chest pain and palpitations. Gastrointestinal: Negative. Endocrine: Negative. Genitourinary: Negative. Musculoskeletal: Positive for back pain. Allergic/Immunologic: Negative. Neurological: Positive for weakness (bilateral legs, pt almost fell, using wheelchair now) and numbness (right leg, foot). Hematological: Negative. Psychiatric/Behavioral: Negative. Vital Signs: BP 141/58 (BP Site: Right Arm, BP Postition: Sitting) Pulse 69 Resp 20 Ht 193 cm (6' 4 ) Wt 117 kg (258 lb) BMI 31.40 kg/m Physical Exam: GENERAL - Healthy patient that appears stated age. HEENT - Normocephalic / Atraumatic, Extraoccular movements intact, trachea midline, thyroid within normal limits. CV - pulse regular, Warm extremities with appropriate color of nailbeds. RESP - No obvious wheezing, No Shortness of Breath, No overexertion response to exam maneuvers. COORDINATION - remains intact. PSYCH - Alert and Oriented x4, Attentive and appropriate, constitutionally normal, displays normal mood and affect per situation, answered questions appropriately during examination, demonstrated appropriate attention during discussion, demonstrated appropriate cognitive reasoning and understanding of the medical condition by asking appropriate questions regarding the diagnosis and risks/benefits/alternatives of treatment modalities. No obvious deficits in memory, reasoning, or intellect. Patient extremely drowsy. Unable to stay awake for exam. Assessment/Treatment Plan: Tom was seen today for back pain. Diagnoses and all orders for this visit: Spinal stenosis of lumbar region without neurogenic claudication - Ambulatory referral to Pain Management (Non[facility]) Follow up after cleared medically DISCUSSION: Treatment options discussed with patient and all questions answered to patient's satisfaction. OARRS: Reviewed. Patient was unable to stay awake for intake and physical exam. and patient state they feel something is not right. Physical exam deferred and patient taken to ER per wheelchair. Will follow up with patient at a later date. Scribe Statement: Scribed for and in the presence of YARI PETER PA-C by Marley Sprague CNA. Provider Statement: I, YARI PETER PA-C, personally performed the services described in the documentation, as scribed by Marley Sprague CNA in my presence, and it is both accurate and complete. Marley Sprague CNA 09/19/23 1404 Yari Peter PA-C 09/19/23 1434 documented in this encounter [facility] 09-13-2023 Miscellaneous Notes Pt called she wasn't able to come to dr dhaliwal, wanted to know if pt could get a lasix bc his legs are getting puffy again, pt stated you did look at them , also concerned about entresto they go back to the cardiogist the pt hasn't taken Rx 3-4 weeks insurance chaged and cost to much Please send to [facility]. Will let them know orders will be there. documented in this encounter [facility] 09-13-2023 Telephone encounter Note Pt called she wasn't able to come to dr dhaliwal, wanted to know if pt could get a lasix bc his legs are getting puffy again, pt stated you did look at them , also concerned about entresto they go back to the cardiogist the pt hasn't taken Rx 3-4 weeks insurance chaged and cost to much [facility] 09-13-2023 Telephone encounter Note Please send to [facility]. Will let them know orders will be there. [facility] 01-04-2023 History of Present illness Narrative Attemped to call with chest xray results. No answer. Unable to leave a Images from the original note were not included. Patient Name: [facility] Location: Tom Khan [address] [facility] [id number] Date Of : Date Of Visit: 1955 01/04/2023 MRN# Provider: [id number] Etta Oakes CNP Chief Complaint Patient presents with Illness Uri x 2 weeks- concerned about cough/ sob Assessment & Plan 1. Cough, unspecified type XR Chest AP/PA and LAT No follow-ups on file. Medical Decision Making Patient is reporting chronic findings today. He is due to have an ECHO for SOB. Just had visit on 01/02 and saw his pcp for this. He has no CP - reports SOB. No major cough. He just ate dinner [employer], FSBS are running high per him. requests a chest xray. He has no fevers. Patient is on cell phone as I am discussing POC. states that they do not have time to wait on xray and want to leave as they have friends in car. Will call with results as soon as red. Explained that this can be tonight or tomorrow. They are to call tomorrow if they have not heard back from us. I see no evidence of pneumonia on xray - will attempt to call. Additional Clinical Comments Discussed over the counter medications for symptomatic management and side effects of medications. Recommended taking all medications with food and to stop medications if they develop any signs of an allergic reaction. Educated patient and/or guardian about signs and symptoms that would warrant further immediate evaluation. Recommended that they should return to urgent care, make an appointment with their family physician, or go to the emergency room if symptoms persist or get acutely worse. Recommended follow up within the next week with their PCP or to get established with a PCP soon in order to follow up appropriately. Subjective 67 y.o. male presents with Illness (Uri x 2 weeks- concerned about cough/ sob) Patient is here with his who does most of talking. He is reporting a burning sensation to his tongue for almost 2 weeks. He is diabetic and states that his blood sugars have been running high. He had a visit with his PCP on 12/27 for a URI and was given CAPRON - today he is here for chronic abdominal bloating for months. Along with dyspnea that increases at night time. He is supposed to have an echo for this. was concerned because they were walking around [place] today and he states that he was feeling SOB. On arrival no SOB is noted. states that they just ate dinner and have friends with them so they cannot wait long here. Illness Associated symptoms include shortness of breath. Review Of Systems Review of Systems Respiratory: Positive for shortness of breath. Gastrointestinal: Positive for abdominal distention. Medical History Past Medical History: Diagnosis Date Anxiety Arthritis Dementia (HCC) Depression Diabetes mellitus (HCC) Hyperlipidemia Hypertension History reviewed. No pertinent surgical history. There is no problem list on file for this patient. Social History Family History No family history on file. Objective Physical Exam BP 137/81 Pulse 88 Temp 97.9 F (36.6 C) Resp 16 Ht 5' 11 Wt 110.3 kg (243 lb 1.6 oz) SpO2 97% BMI 33.91 kg/m Vision/Hearing Exam:No results found. Physical Exam Vitals and nursing note reviewed. HENT: Head: Normocephalic. Right Ear: Tympanic membrane, ear canal and external ear normal. Left Ear: Tympanic membrane, ear canal and external ear normal. Mouth/Throat: Lips: [place]. Mouth: Mucous membranes are moist. No lacerations or angioedema. Tongue: No lesions. Tongue does not deviate from midline. Palate: No mass and lesions. Pharynx: Oropharynx is clear. Uvula midline. Comments: Halitosis is present Cardiovascular: Rate and Rhythm: Normal rate and regular rhythm. Pulmonary: Effort: Pulmonary effort is normal. Breath sounds: Normal breath sounds. No stridor, decreased air movement or transmitted upper airway sounds. Abdominal: General: Abdomen is protuberant. Bowel sounds are normal. Palpations: Abdomen is soft. There is no shifting dullness, hepatomegaly, splenomegaly, mass or pulsatile mass. Tenderness: There is no abdominal tenderness. Musculoskeletal: Cervical back: Full passive range of motion without pain and normal range of motion. Right lower leg: No edema. Left lower leg: No edema. Neurological: Mental Status: He is alert. Procedure Notes Procedures Results No results found for this or any previous visit (from the past 168 hour(s)). XR Chest AP/PA and LAT (Results Pending) Orders Placed This Visit Orders Placed This Encounter Procedures XR Chest AP/PA and LAT Medication List At End Of Visit Current Outpatient Medications Medication Sig Dispense Refill amLODIPine (NORVASC) 10 MG tablet Take 1 (one) tablet (10 mg total) by mouth daily . busPIRone (BUSPAR) 10 MG tablet Take 1 (one) tablet (10 mg total) by mouth 3 (three) times a day . chlorthalidone (HYGROTON) 25 MG tablet Take 1 (one) tablet (25 mg total) by mouth daily . DULoxetine (CYMBALTA) 60 MG capsule Take 1 (one) capsule (60 mg total) by mouth daily . insulin lispro (AdmeLOG,HumaLOG) 100 unit/mL injection Inject under the skin 3 (three) times a day before meals . labetaloL (NORMODYNE) 200 MG tablet Take 1 (one) tablet (200 mg total) by mouth 2 (two) times a day . LORazepam (ATIVAN) 0.5 MG tablet Take 1 (one) tablet (0.5 mg total) by mouth every 6 (six) hours as needed for anxiety Bid . nystatin (MYCOSTATIN) 100,000 unit/mL suspension Take 5 mL (500,000 Units total) by mouth 4 (four) times a day for 10 days . 200 mL 0 traZODone (DESYREL) 100 MG tablet Take 1 (one) tablet (100 mg total) by mouth nightly as needed for sleep . No current facility-administered medications for this visit. There are no Patient Instructions on file for this visit. documented in this encounter [facility] 07-06-2022 Evaluation note Encounter Date Diagnosis Assessment Notes Jul, Obstructive sleep apnea (ICD-10 - G47.33) He has been using and benefiting from treatment over the long-term. Although unable to get a download today, he has had excellent compliance and good control in the past. He has registered his antiquated machine for recall, but has not heard anything back. He is interested in getting a new machine, and we will order auto CPAP minimum 8 maximum 16. Anticipate return for 31 to 90-day visit as required by insurance Jul, Psychophysiologic insomnia (ICD-10 - F51.04) Encouraged continued efforts at good sleep hygiene. His ongoing depression likely contributes to insomnia as well. He continues with management for these problems through his psychiatrist Jul, Depression, major, recurrent, moderate (ICD-10 - F33.1) [employer] Other 11-19-2021 NotePROCEDURE: CT CSPINE WO CON COMPARISON: None. HISTORY: Cervical spondylosis without myelopathy TECHNIQUE: Axial, Coronal, and Sagittal CT images obtained without IV contrast. Dose reduction techniques were achieved by using automated exposure control and/or adjustment of mA and/or kV according to patient size and/or use of iterative reconstruction technique. FINDINGS: PARASPINAL AREA: Normal with no visible mass. DISCS: Intervertebral disc space narrowing most significant C6-C7 and C7-T1 BONES: Normal alignment with no acute fracture or spondylolisthesis. Mild degenerative spondylosis and facet osteoarthropathy OTHER: Negative. IMPRESSION: Mild degenerative changes with no acute abnormality Electronically authenticated by: LULA RODRIGUEZ Date: 2021-07-22 09:36[facility]10-22-2021 NoteHNO ID: [id number] Author: Rudolph Ambrocio CCC-PAPERHANGER Service: ? Author Type: Speech Language Pathologist Type: Progress Notes Filed: 06/24/2021 8:45 AM Note Text: 06/24/2021 [facility] SPEECH DISCONTINUANCE OF CARE Plan of Care Period: Last Visit Date: 03/23/2021 Therapy Program: The following is a summary of the interventions provided for this episode of care; cognitive-linguistic training. Assessment: The following is the goal status: Goals for Episode of Care Updated: 03/23/2021 Goals for Episode of Care: created on 02/15/2021 through 05/16/21 COGNITIVE GOALS Improve money and time management tasks with 95% accuracy given minimal assist. CURRENT: 100% per simple tasks. NOT MET. Continue goal. Improve functional, immediate and short term/prospective memory to 95% accuracy with use of compensatory strategies with minimal assist/cues. CURRENT: Memory using grouping: Immediate recall of 12 items (90%), Delayed recall of 12 items (100%) with reorganizing the groups and additional rehearsal. Memory using association: Immediate recall of 5-10 word pairs (100%). Working memory per 4 word sentences into abc, reverse and progressive order: 75% slow responding. Provided moderate verbal cues. NOT MET. Continue goal. All goals to target the patient's overall ability to facilitate functional cognitive linguistic skills. *Assess problem solving/reasoning, add goals as appropriate, next session* CURRENT: 90%. MET. Discontinue goal. 02/15/2021 FCM Memory Level: 5 FCM Problem Solving Level: 5 03/23/2021 FCM Memory Level: 5 FCM Problem Solving Level: 5 Based on most recent progress report, patient was progressing as expected toward functional goals based on home exercise program compliance and documented subjective information on progress Reason for Discontinuation of Care: Patient has not returned to therapy or scheduled additional follow-up appointments. Rudolph Ambrocio, CCC-SLPCher[facility]07-21-2021 NoteHNO ID: [id number] Author: Rudolph Ambrocio PAPERHANGER Service: ? Author Type: Speech Language Pathologist Type: Progress Notes Filed: 03/23/2021 9:35 AM Note Text: Episode Visit Count: 3 Therapist That Will Oversee The Plan Of Care: Dorothy Benoit Start of Care Date: 02/15/21 Onset Date: 01/24/21 Plan of Care Certification Date: 02/15/21 Next Certification Due Date: 05/16/21 Patient Identified by Name and Date of : Yes [facility] SPEECH THERAPY PROGRESS REPORT PLAN OF CARE UPDATE: Impression: Communication deficits identified: Cognitive deficits Progress Toward Goals: Progressing as expected Functional gains: Increased use of compensatory strategies and Improving skill related to the implementation of the taught home exercise program Goals for Episode of Care Updated: 03/23/2021 Goals for Episode of Care: created on 02/15/2021 through 05/16/21 COGNITIVE GOALS Improve money and time management tasks with 95% accuracy given minimal assist. CURRENT: 100% per simple tasks. NOT MET. Continue goal. Improve functional, immediate and short term/prospective memory to 95% accuracy with use of compensatory strategies with minimal assist/cues. CURRENT: Memory using grouping: Immediate recall of 12 items (90%), Delayed recall of 12 items (100%) with reorganizing the groups and additional rehearsal. Memory using association: Immediate recall of 5-10 word pairs (100%). Working memory per 4 word sentences into abc, reverse and progressive order: 75% slow responding. Provided moderate verbal cues. NOT MET. Continue goal. All goals to target the patient's overall ability to facilitate functional cognitive linguistic skills. *Assess problem solving/reasoning, add goals as appropriate, next session* CURRENT: 90%. MET. Discontinue goal. 02/15/2021 FCM Memory Level: 5 FCM Problem Solving Level: 5 03/23/2021 FCM Memory Level: 5 FCM Problem Solving Level: 5 Assessment per DEION Functional Communication Measure and treatment recommendations: Memory: LEVEL 5: The individual consistently requires minimal cues to recall or use external memory aids for complex and novel information. The individual consistently requires cues to plan and follow through on complex future events (e.g., menu planning and meal preparation, planning a democrat, etc.). Problem Solving: LEVEL 5: The individual demonstrates functional problem solving skills in routine daily activities. He/she rarely requires minimal cueing/assistance or additional time to recognize problems, identify various solutions and carry out steps to complete simple problem solving tasks. The individual usually requires moderate cues/assistance to identify salient features of complex problems and occasionally provides appropriate solutions. He/she usually needs additional time to complete complex problem solving tasks and occasionally self-monitors effectiveness of performance and uses strategies when encountering difficulty. Distant supervision may be required to complete complex problem solving tasks. RECOMMENDATION: Planned Interventions, Frequency, and Duration: Cognitive-Linguistic Training PAPERHANGER Recommendations: Outpatient Speech Therapy Results and Recommendations Discussed With: Patient Planned Interventions, Frequency, and Duration: Current Frequency: 1x every other week Duration: 8 weeks PLAN FOR NEXT VISIT: memory using association, working memory per 4 word sentences, time/money problem solving SUBJECTIVE: Patient Reason for Visit: Patient reported that he has been busy with a vacation and family visiting. 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 OBJECTIVE MEASURES WITH LEVEL OF FUNCTION: Professional training and skilled instructions were provided as follows: Cognitive-linguistic skills Memory using grouping: Immediate recall of 12 items (90%), Delayed recall of 12 items (100%) with reorganizing the groups and additional rehearsal. Memory using association: Immediate recall of 5-10 word pairs (100%) Working memory per 4 word sentences into abc, reverse and progressive order: 75% slow responding. Provided moderate verbal cues. TREATMENT: Speech/Language Therapy ([id number]): Skilled Intervention: Educated and instructed patient on compensatory strategies for memory and working memory Educated and instructed patient on memory recall strategies such as active repetition, association and grouping. Provided verbal cues in auditory / verbal memory tasks. Provided and instructed patient per home exercise program. Current Home Program: memory using association and 4 word sentences Billing: Speech Treatment ([id number]) Total time / Length of visit: 45 minutes Rudolph Ambrocio, SLPCher[facility]06-29-2021 NoteHNO ID: [id number] Author: Tima Soto MD Service: ? Author Type: Physician Type: Progress Notes Filed: 03/01/2021 4:35 PM Note Text: Ortho Knee Follow Up Note Narrative Referring Provider: Tima Soto [address] [facility] [address] PCP: Tom Paniagua, DO IMPRESSION/PLAN: Sed rate/crp 65 year old s/p Right Total Knee Replacement completed on 04-12-20. He is complaining of some right knee stiffness, aching and lower extremity edema for the last 2 months. Of note in January he was diagnosed with right lower extremity cellulites and was given a course of abx. He was also recently diagnosed with RLE DVT. IMPRESSION: R/O PJI - esr and crp I think a lot of current sx's of swelling are obviously related to his dvt. His knee loos benign but need r/o PJI. if APR are elevtaed will aspirate his knee R knee with well heaeled incision, no erythema or cherie effusion, 0-125, stable lower leg swelling no cellulitis Imagin. Implants are well aligned. Implants are well fixed. There is no evidence of loosening. Provider: Tima Soto MD Completed by: Yaneth Mendez RN I personally evaluated this patient and agree with the note from the nurse/resident/fellow including PMH, PSH, SH, meds, allergies, and review of systems. I completed the HPI and performed the physical exam. Additionally I reviewed available imaging and wrote my interpretation. I wrote the Assessment and Plan.[facility]06-29-2021 NoteHNO ID: [id number] Author: RT Cesar(R) Service: ? Author Type: Rotary [employer]el Oven Tender Type: Progress Notes Filed: 03/01/2021 12:52 PM Note Text: Radiology Service Progress Note PATIENT NAME: Tom Khan DATE OF SERVICE: March 01, 2021 TIME: 12:50 PM PATIENT IDENTITY VERIFICATION COMPLETED USING TWO (2) IDENTIFIERS: Name and Date of confirmed by patient verbally. FALL SCREENING: Has the patient had 2 falls in the last year or 1 fall with injury or currently using an Ambulatory Assistive Device (Walker, Cane, Wheelchair, Crutches, etc.)? No PATIENT GENDER DATA: Male PATIENT RELEVANT IMPLANT DATA REVIEWED: Not Applicable RADIOLOGY DEPARTMENT: General X-ray: Exam(s) Completed: Lower Extremity X-Ray(s): Knee, AP / Lat / Merchant Right and Wt. Bearing PERIPHERAL IV DATA: Not applicable SIGNED BY: RT Cesar(R) March 01, 2021 12:50 [facility]06-25-2021 NoteHNO ID: [id number] Author: MICK Flanagan Service: ? Author Type: Speech Language Pathologist Type: Progress Notes Filed: 02/25/2021 12:06 PM Note Text: Episode Visit Count: 2 Therapist That Will Oversee The Plan Of Care: Dorothy Benoit Start of Care Date: 02/15/21 Onset Date: 01/24/21 Plan of Care Certification Date: 02/15/21 Next Certification Due Date: 05/16/21 Patient Identified by Name and Date of : Yes [facility] SPEECH THERAPY TREATMENT NOTE IMPRESSION: Communication deficits identified: Cognitive deficits Results and Recommendations Discussed With: Patient PLAN: Continue speech therapy plan of care addressing cognitive skills/goals in therapy and HEP. PLAN FOR NEXT VISIT: memory, working memory, time/money management SUBJECTIVE: Patient is reporting that he is ready to start therapy. Patient reported that he has trouble with short-term memory. OBJECTIVE: MEASURES WITH LEVEL OF FUNCTION: Professional training and skilled instructions were provided as follows: Cognitive-linguistic skills Problem solving/reasoning assessed. 90% Working Memory per 3 and 4 items into reverse: 80-90%, abc order: 75% Time management/problem solvin% Memory using grouping strategy: Immediate recall of 6 items (100%), delayed recall after 5 minutes (100%) TREATMENT: Speech/Language Therapy ([id number]): Skilled Intervention: Educated and instructed patient on compensatory strategies for daily problem solving scenarios and simple reasoning Educated and instructed patient on memory recall strategies such as active repetition and chunking. Provided verbal cues in auditory / verbal memory tasks. Provided and instructed patient per home exercise program. Current Home Program: memory using grouping, working memory per reverse/abc order, time problem solving Billing: Speech Treatment ([id number]) Total time / Length of visit: 45 minutes MICK FlanaganCher[facility]06-15-2021 NoteHNO ID: [id number] Author: MICK Shelton Service: ? Author Type: Speech Language Pathologist Type: Progress Notes Filed: 02/15/2021 1:57 PM Note Text: Episode Visit Count: 1 Therapist That Will Oversee The Plan Of Care: Dorothy Benoit Start of Care Date: 02/15/21 Onset Date: 01/24/21 Plan of Care Certification Date: 02/15/21 Next Certification Due Date: 05/16/21 Patient Identified by Name and Date of : Yes [facility] COGNITIVE LINGUISTIC EVALUATION PLAN OF CARE: Impression: Functional communication without limitations in: Cognition Communication deficits identified: Cognitive deficits RECOMMENDATION: PAPERHANGER Recommendations: Outpatient Speech Therapy Results and Recommendations Discussed With: Patient Prognosis: Good Good: good support system/ coping skills FCM Memory Level: 5 FCM Problem Solving Level: 5 Assessment per [facility] Functional Communication Measure and treatment recommendations: Memory: LEVEL 5: The individual consistently requires minimal cues to recall or use external memory aids for complex and novel information. The individual consistently requires cues to plan and follow through on complex future events (e.g., menu planning and meal preparation, planning a democrat, etc.). Problem Solving: LEVEL 5: The individual demonstrates functional problem solving skills in routine daily activities. He/she rarely requires minimal cueing/assistance or additional time to recognize problems, identify various solutions and carry out steps to complete simple problem solving tasks. The individual usually requires moderate cues/assistance to identify salient features of complex problems and occasionally provides appropriate solutions. He/she usually needs additional time to complete complex problem solving tasks and occasionally self-monitors effectiveness of performance and uses strategies when encountering difficulty. Distant supervision may be required to complete complex problem solving tasks. Goals for Episode of Care: created on 02/15/2021 through 05/16/21 COGNITIVE GOALS Improve money and time management tasks with 95% accuracy given minimal assist. Improve functional, immediate and short term/prospective memory to 95% accuracy with use of compensatory strategies with minimal assist/cues. All goals to target the patient's overall ability to facilitate functional cognitive linguistic skills. *Assess problem solving/reasoning, add goals as appropriate, next session* Planned Interventions, Frequency, and Duration: Current Frequency: 1x every other week Duration: 12 weeks PLAN FOR NEXT VISIT: assess reasoning and problem solving Patient demonstrates good understanding of plan of care and treatment. The above goals and plan of care were discussed and agreed upon by patient/family. SUBJECTIVE: Tom Khan is a 65 year old male seen today for a diagnostic. 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 Patient states that he is diabetic and feels that may be contributing to his cognition. Patient had ST last year for cognition (only one session) d/t not processing information as well as he had like . Patient Goals: to try and get better and feeling better. 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 and Ross Information Processing Assessment (RIPA). COGNITIVE-LINGUISTIC SKILLS Cognition Cognitive Status: Within Functional Limits For Current Session Except Cognitive Deficits: Memory Deficits;Executive Function Deficit Memory Deficits: Immediate;Short Term;Functional Functional Memory Comments: 50% (prospective memory) Immediate Memory Comments: 70% Short Term Memory Comments: 90% Executive Function Deficits: Math Calculations Math Calculations Comments : 85% Education: Education Learning Preferences: Demonstration;Explanation;Performance;Printed Materials Barriers: None Learning/Educational Needs: Compensatory Strategies;Cognitive Skills;Home Exercise Program Education Provided: Yes, see treatment interventions for education provided Education Provided To: Patient Education Mode/Type: Demonstration;Explanation/Discussion;Literature/Printed Materials Response to Education/Teach Back: Requires Review/Additional Education;States/Identifies TREATMENT: Evaluation: Eval Sound Production with Language Expression and 911 Telecommunicator ([id number]) Speech/Language The (more content not included)...[facility] 05-20-2020 History of Present illness Narrative* Babs Ornelas (Tech), Tech - 05/20/2020 12:45 PM EDT Radiology Service Progress Note PATIENT NAME: Tom Khan DATE OF SERVICE: May 20, 2020 TIME: 1:07 PM PATIENT IDENTITY VERIFICATION COMPLETED USING TWO (2) IDENTIFIERS: Name and Date of confirmedby patient verbally. FALL SCREENING: Has the patient had 2 falls in the last year or 1 fall with injury or currently using an Ambulatory Assistive Device (Walker, Cane, Wheelchair, Crutches, etc.)? No PATIENT GENDER DATA: Male PATIENT RELEVANT IMPLANT DATA REVIEWED: Not Applicable RADIOLOGY DEPARTMENT: General X-ray: Exam(s) Completed: Lower Extremity X- Ray(s): Knee, AP / Lat / Merchant Right: PERIPHERAL IV DATA: Not applicable SIGNED BY: López Alexis May 20, 2020 1:07 PM [facility] general Narrative - Reported* Type Description Date Medical History 02/28/2012 Blood work CBC, CMP, Liver profile Medical History 03/09/12 Blood work Lipid, CMP, CBC, T4, TSH, HGA1C (6.2), PSA (1.07) Medical History CT Paranasal Sinses without cont [place]ast [place] [facility] Abdomen and Pelvis without co [place]trast [place]-12[place]12 [facility] [place] History hypertension Medical History chronic depression Medical History diabetes mallitus Medical History NIDIA Surgical History CABG 2007 Surgical History ENT surgery due to sleep apnea. 2008 Surgical History Left knee replacement 09/2011 Surgical History dental implants Surgical History knee replacement right Hospitalization History SEE ABOVE [employer] Other Evaluation noteNo assessment information available [facility] Work Phone: Evaluation noteNo InformationNortChan [facility] creads Other Evaluation note* Diagnosis Cough, unspecified type- Primary [facility] Diagnosis Type 2 diabetes mellitus with diabetic peripheral angiopathy without gangrene, with long-term current use of insulin ([facility]) documented in this encounter [facility]* Diagnosis Spinal stenosis of lumbar region without neurogenic claudication documented in this encounter [facility]* Diagnosis Onset Date Resolution Status Cauda equina compression acu te Impaired mobility and activities of daily living acute Post-operative pain acute S/P lumbar laminectomy acute Severe major depression acut e Spinal stenosis at L4-L5 level acute Type II diabetes mellitus [place] CAD (coronary artery disease) chronic Generalized anxiety disorder chronic Hyperlipidemia chronic Hypertension chronic Major psychotic depression, recurrent chronic [facility] Work Phone: Evaluation note* Diagnosis Onset Date Resolution Status Cauda equina compression acu te Impaired mobility and activities of daily living acute Post-operative pain acute S/P lumbar laminectomy acute Severe major depression acut e Spinal stenosis at L4-L5 level acute Type II diabetes mellitus [place] CAD (coronary artery disease) chronic Generalized anxiety disorder chronic Hyperlipidemia chronic Hypertension chronic Major psychotic depression, recurrent chronic History of coronary artery bypass graft x 3 acute Spinal stenosis at L4-L5 level acute ST elevation myocardial infa rction (STEMI) of inferior wall acute Type II diabetes mellitus [place] CAD (coronary artery disease) chronic Hyperlipidemia chronic Hypertension chronic [facility] Work Phone: Evaluation note* Diagnosis Status post lumbar laminectomy- Primary Chronic diastolic CHF (congestive heart failure) ([facility] ST elevation myocardial infarction (STEMI) of inferior wall ([facility]) Acute myocardial infarction of other inferior wall, episode of care unspecified Type 2 diabetes mellitus with diabetic peripheral angiopathy without gangrene, with long-term current use of insulin ([facility]) Primary hypertension Unspecified essential hypertension History of urinary retention Other constipation documented in this encounter [facility]* Diagnosis CAD, multiple vessel- Primary Primary hypertension Unspecified essential hypertension Mixed hyperlipidemia Ischemic cardiomyopathy Other specified forms of chronic ischemic heart disease Type 2 diabetes mellitus without complication, with long-term current use of insulin ([facility]) Obesity (BMI 30-39.9) Major psychotic depression, recurrent ([facility]) Moderate episode of recurrent major depressive disorder ([facility]) documented in this encounter [facility] Work Phone: Evaluation note* Diagnosis Numbness in both legs- Primary Disturbance of skin sensation Lumbar pain Lumbago Lumbar pain Lumbago documented in this encounter [facility]* Diagnosis Biliary colic- Primary Calculus of gallbladder without mention of cholecystitis or obstruction [facility] Diagnosis Numbness in both legs Disturbance of skin sensation History of urinary retention documented in this encounter [facility]* Diagnosis Type 2 diabetes mellitus with diabetic peripheral angiopathy without gangrene, with long-term current use of insulin ([facility] Primary OSEI (dyspnea on exertion) Other dyspnea and respiratory abnormality Bilateral lower extremity edema RUQ abdominal pain Abdominal pain, right upper quadrant Tendinopathy of left rotator cuff Mixed hyperlipidemia Screening PSA (prostate specific antigen) Special screening for malignant neoplasm of prostate Primary hypertension Unspecified essential hypertension CAD, multiple vessel ST elevation myocardial infarction (STEMI) of inferior wall ([facility]) Acute myocardial infarction of other inferior wall, episode of care unspecified Moderate episode of recurrent major depressive disorder ([facility]) Bilateral lower extremity edema RUQ abdominal pain Abdominal pain, right upper quadrant OSEI (dyspnea on exertion) Other dyspnea and respiratory abnormality documented in this encounter [facility]* Diagnosis Type 2 diabetes mellitus with diabetic peripheral angiopathy without gangrene, with long-term current use of insulin ([facility])- Primary documented in this encounter [facility]* Diagnosis Type 2 diabetes mellitus with diabetic peripheral angiopathy without gangrene, with long-term current use of insulin ([facility] Primary documented in this encounter [facility]* Diagnosis CAD, multiple vessel Obesity (BMI 30-39.9) Primary hypertension Unspecified essential hypertension Type 2 diabetes mellitus without complication, with long-term current use of insulin ([facility]) Depression, unspecified depression type Old DC (myocardial infarction) Old myocardial infarction History of PTCA Postsurgical percutaneous transluminal coronary angioplasty status Anxiety Anxiety state, unspecified Mixed hyperlipidemia documented in this encounter [facility] Work Phone: Evaluation note* Diagnosis Suspected cauda equina syndrome- Primary Neck pain Cervicalgia Bilateral low back pain with sciatica, sciatica laterality unspecified, unspecified chronicity Incontinence of feces, unspecified fecal incontinence type B12 deficiency documented in this encounter [facility]* Diagnosis Pre-op exam- Primary Preoperative examination, unspecified Primary osteoarthritis of right knee Primary localized osteoarthrosis, lower leg Essential hypertension Unspecified essential hypertension S/P CABG (coronary artery bypass graft) Postsurgical aortocoronary bypass status Unspecified sleep apnea Prediabetes Other abnormal glucose Atherosclerosis of [place] coronary artery of [place] heart without angina pectoris Vocal cord granuloma Other diseases of vocal cords Hyperlipidemia, unspecified hyperlipidemia type Esophageal stricture Stricture and stenosis of esophagus Depression, unspecified depression type Nuclear senile cataract, unspecified laterality [facility] Diagnosis Pre-op exam- Primary Preoperative examination, unspecified Primary osteoarthritis of right knee Primary localized osteoarthrosis, lower leg Essential hypertension Unspecified essential hypertension S/P CABG (coronary artery bypass graft) Postsurgical aortocoronary bypass status Unspecified sleep apnea Prediabetes Other abnormal glucose Atherosclerosis of [place] coronary artery of [place] heart without angina pectoris Vocal cord granuloma Other diseases of vocal cords Hyperlipidemia, unspecified hyperlipidemia type Esophageal stricture Stricture and stenosis of esophagus Depression, unspecified depression type Primary osteoarthritis of right knee Primary localized osteoarthrosis, lower leg [facility] Diagnosis Type 2 diabetes mellitus with diabetic peripheral angiopathy without gangrene, with long-term current use of insulin ([facility])- Primary documented in this encounter [facility]* Diagnosis CAD, multiple vessel- Primary Primary hypertension Unspecified essential hypertension Mixed hyperlipidemia Ischemic cardiomyopathy Other specified forms of chronic ischemic heart disease Type 2 diabetes mellitus without complication, with long-term current use of insulin (Multi) Obesity (BMI 30-39.9) Major psychotic depression, recurrent (Multi) Moderate episode of recurrent major depressive disorder CAD, multiple vessel History of coronary artery bypass graft Postsurgical aortocoronary bypass status History of PTCA Postsurgical percutaneous transluminal coronary angioplasty status Mixed hyperlipidemia Primary hypertension Unspecified essential hypertension Body mass index (BMI) of 32.0 to 32.9 in adult Never smoked cigarettes Type 2 diabetes mellitus without complication, with long-term current use of insulin ([facility]) Anxiety Anxiety state, unspecified documented in this encounter [facility] Work Phone: History of Present illness Narrative* Patient is here for follow-up and management for coronary artery disease with bypass surgery back in 2008, hypertension, hyperlipidemia. I have not seen him in more than 2 years. He has been been noncompliant with his follow-up. He recently underwent echocardiogram that showed borderline LV systolic dysfunction. His medication was adjusted and was started on Entresto by his family physician. He denies complaint of chest pain, lightheadedness, dizziness or syncope. He report he can walk 3 miles a day. He reports he has been having mental issues and his reports problem with anxiety and depression. He has not been taking any statin therapy. He does not recall if he had truly a side effector intolerance to statin. His recent lab continues to demonstrate poorly controlled lipid profile * ASSESSMENT: * 1. History of coronary artery disease, with remote bypass surgery, stable. No anginal symptoms reported. He reports functional class I. * 2. Hypertension, controlled. * 3. Hyperlipidemia, suboptimally controlled. Has not been taking any lipid therapy * 4. Diabetes mellitus * 5. Depression * 6. Depression and anxiety * 7. Status knee replacement surgery * 8. We have DVT completed 6 months of anticoagulation with no recurrence * 9. Noncompliance with follow-up * 10. Recent echo showed LVEF around 50-55% * Plan * 1. Patient appears to be on appropriate medical therapy except statin * 2. Patient appears to be stable from cardiovascular standpoint * 3. I encouraged the patient to lose weight and exercise * 4. I recommended initiating treatment with Crestor 5 mg daily and plan to repeat his lipid profile * 5. We discussed proceeding with stress test but the patient reports he had good exercise tolerance and has not had any anginal symptoms and he is reluctant to proceed * 6. We will see him back in the office 6 months or earlier if the need arise [facility] [address] DO Work Phone: Hospital Discharge instructions Additional Instructions Call [facility] tomorrow for follow-up. Also follow-up with a primary care provider or return for emergent concerns. No changes are made any home medications. Prescriptions are provided.[facility] Work Phone: InstructionsNot on filedocumented in this encounter [facility] filedocumented in this encounter [facility] on filedocumented in this encounter [facility] filedocumented in this encounter [facility] on filedocumented in this encounter [facility] on filedocumented in this encounter [facility] on filedocumented in this encounter [facility] on filedocumented in this encounter [facility] on filedocumented in this encounter [facility]Not on filedocumented in this encounter [facility]ructionsNot on filedocumented in this encounter [facility] System[facility] for [facility] (narrative)* Consultation (Routine) - Authorized Specialty Diagnoses / Procedures Referred By Contac t Referred To Contact Cardiology Diagnoses CAD, multiple vessel Procedures Follow Up In Cardiology Chip Gavin APRN-MIGRATION AGENT [address] [facility] [address] [place] [address] Gita Watts, DO [address] [facility] [address] [place] [address] Referral ID Status Reason Start Date Expiration Date V isits Requested Visits Authorized [id number] Authorized 10/17/2023 10/16/2024 1 1 [facility] Work Phone: Reason for referral (narrative)* Consultation (Routine) - Pending Review Specialty Diagnoses / Procedures Referred By Contac t Referred To Contact Urology Diagnoses Numbness in both legs Bobbi Steen MD [address] [place] [phone] [facility] [address] [place] [phone] Referral ID Status Reason Start Date Expiration Date Visits Requested Visits Authorized [id number] Pending Review Specialty Services Required 11/01/2023 10/31/2024 1 1 * Rehabilitation - Outpatient (Routine) - Closed Specialty Diagnoses / Procedures Referred By Contac t Referred To Contact Rehabilitation Diagnoses Lumbar pain Bobbi Steen MD [address] [place] [address] [address] [place] [phone] [facility] [address] [place] [phone] Referral ID Status Reason Start Date Expiration Date Visits Re quested Visits Authorized [id number] Closed 11/01/2023 10/31/2024 1 1 [facility] for referral (narrative)* Consultation (Routine) - Pending Review Specialty Diagnoses / Procedures Referred By Ish t Referred To Contact Endocrinology, Diabetes & Metabolism Diagnoses Type 2 diabetes mellitus with diabetic peripheral angiopathy without gangrene, with long-term current use of insulin ([facility]) Alea Mckenzie MD [address] [facility] [place] [address] [facility] [address] [place] [address] Referral ID Status Reason Start Date Expiration Date Visits Requested Visits Authorized [id number] Pending Review Specialty Services Required 12/06/2023 12/05/2024 1 1 [facility] for referral (narrative)* Consultation (Routine) - Authorized Specialty Diagnoses / Procedures Referred By Ish narvaez Referred To Contact Cardiology Diagnoses CAD, multiple vessel Procedures Follow Up In Cardiology Gita Watts DO [address] [place] [address] [address] [address] Gita Watts DO [address] [facility] [address], [address] [address] Referral ID Status Reason Start Date Expiration Date V isits Requested Visits Authorized [id number] Authorized 01/22/2024 01/21/2025 1 1 [facility] Work Phone: Summary Purpose Family History Relationship Condition Age at Onset Recorded Date/T vicente Not Specified Hyperlipidemia Unknown Hypertension Unknown Unknown Family Member Name Dates Details FH: CABG (coronary artery by pass surgery): Father(V17.3, Z82.49) Status:Active Family history of congestive heart failure: Father(V17.49, Z82.49) Status:Active Family history of hypertensi on: Mother(V17.49, Z82.49) Status:Active Stroke syndrome: Mother Status:Active Unknown Family Member Name Dates Details FH: CABG (coronary artery by pass surgery): Father(V17.3, Z82.49) Status:Active Family history of congestive heart failure: Father(V17.49, Z82.49) Status:Active Family history of hypertensi on: Mother(V17.49, Z82.49) Status:Active Stroke syndrome: Mother Status:Active Advance Directives Advance Directive Response Recorded Date/ Time Advance Directives No July 04, 2022 1:15pm Latest Code Status on File Code Status Date Activated Date Inactivated Comments Full Code 09/20/2023 6:01 AM 09/26/2023 7:04 PM Advance Directive Response Recorded Date/ Time Advance Directives No July 04, 2022 12:15pm Latest Code Status on File Code Status Date Activated Date Inactivated Comments Full Code 09/20/2023 6:01 AM 09/26/2023 7:04 PM Date Activated Date Inactivated Comments 09/20/2023 6:01 AM 09/26/2023 7:04 PM Documents on File Type Date Recorded 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 Advance Directive(s) 04/12/2020 7:26 AM Hospital Course Note HNO ID: [id number] Author: Kristen Soto Service: Orthopaedic Surgery Author Type: Physician Type: Discharge Summary Filed: 04/14/2020 7:40 AM Note Text: ORTHOPAEDIC SURGERY DISCHARGE SUMMARY ADMISSION DATE: 04/12/20 DISCHARGE DATE: 04/13/20 Attending Physician: Tima Soto Reason for Hospitalization: Right TKA Admitting Diagnosis: Knee Advanced Degenerative Joint Disease Discharge Diagnosis: Knee Advanced Degenerative Joint Disease Additional Diagnoses: ACTIVE PROBLEM LIST Senile Nuclear Sclerosis Anxiety State Coronary Atherosclerosis Other States Following Surgery of Eye and Adnexa Pseudophakia Senile Cataract, Unspecified Hypertension Hyperlipidemia S/P Cabg (Coronary Artery Bypass Graft) Prediabetes Depression Vitamin D Deficiency Fatigue Family History of Ischemic Heart Disease Vocal Cord Granuloma Chronic Cough Esophageal Stricture Heartburn Symptom Rotator Cuff Injury Skin Tag Dyspnea, Unspecified Cataract, Nuclear Sclerotic Senile, Right Unspecified Sleep Apnea Primary Os (more content not included)... Note HNO ID: [id number] Author: Aristeo Tran Service: ? Author Type: Anesthesiologist Type: Anesthesia Procedure Notes Filed: 04/12/2020 9:38 AM Note Text: ANESTHESIOLOGY PROCEDURE NOTE Spinal Block General Information Procedure Start Time/Medication Administration: 04/12/2020 9:31 AM Procedure End time: 04/12/2020 9:32 AM Patient location during procedure: induction room Timeout Performed Pre-procedure: timeout performed Consent Obtained: Yes Patient identity confirmed: arm band and patient Reason for Block: primary surgical anesthetic Staffing Anesthesiologist: Shawn Tran SURFACER OPERATOR: Dane Carbajal) Ajit Performed by: SURFACER OPERATOR Preparation Sterility Preparation: hand hygiene performed prior to procedure, surgical cap used, mask used, sterile drape used during line insertion, skin prep agent completely dried prior to procedure Site Prep: Duraprep Procedure Details Patient Position: sitting Ultrasound Guided: No Monitoring: Pulse Ox, EKG and NIBP Approach: Midline Location: L2-3 Needle Needle (more content not included)... Note HNO ID: [id number] Author: Aristeo Tran Service: ? Author Type: Anesthesiologist Type: Anesthesia Procedure Notes Filed: 04/12/2020 12:39 PM Note Text: ANESTHESIOLOGY PROCEDURE NOTE Peripheral Nerve Block General Information Procedure Start Time/Medication Administration: 04/12/2020 12:33 PM Procedure End time: 04/12/2020 12:36 PM Patient location during procedure: PACU Timeout Performed Pre- procedure: timeout performed Consent Obtained: Yes Patient identity confirmed: arm band Reason for block: post-op pain management/at surgeon's request Staffing Anesthesiologist: Shawn Tran Performed by: anesthesiologist Preparation Sterility Preparation: hand hygiene performed prior to procedure, surgical cap used, mask used, sterile drape used during line insertion, skin prep agent completely dried prior to procedure Site Prep: Chloraprep Procedure Details Patient Position: supine Monitoring: Pulse OX, EKG and NIBP Block Type Lower Extremity: distal femoral (adductor canal) Laterality: rig (more content not included)... Procedure Findings Note HNO ID: [id number] Author: Aristeo Tran Service: ? Author Type: Anesthesiologist Type: Anesthesia Procedure Notes Filed: 04/12/2020 9:38 AM Note Text: ANESTHESIOLOGY PROCEDURE NOTE Spinal Block General Information Procedure Start Time/Medication Administration: 04/12/2020 9:31 AM Procedure End time: 04/12/2020 9:32 AM Patient location during procedure: induction room Timeout Performed Pre-procedure: timeout performed Consent Obtained: Yes Patient identity confirmed: arm band and patient Reason for Block: primary surgical anesthetic Staffing Anesthesiologist: Shawn Tran SURFACER OPERATOR: Dane DamonSix Sigma Project Manager) Ajit Performed by: SURFACER OPERATOR Preparation Sterility Preparation: hand hygiene performed prior to procedure, surgical cap used, mask used, sterile drape used during line insertion, skin prep agent completely dried prior to procedure Site Prep: Duraprep Procedure Details Patient Position: sitting Ultrasound Guided: No Monitoring: Pulse Ox, EKG and NIBP Approach: Midline Location: L2-3 Needle Needle (more content not included)... Note HNO ID: [id number] Author: Aristeo Tran Service: ? Author Type: Anesthesiologist Type: Anesthesia Procedure Notes Filed: 04/12/2020 12:39 PM Note Text: ANESTHESIOLOGY PROCEDURE NOTE Peripheral Nerve Block General Information Procedure Start Time/Medication Administration: 04/12/2020 12:33 PM Procedure End time: 04/12/2020 12:36 PM Patient location during procedure: PACU Timeout Performed Pre- procedure: timeout performed Consent Obtained: Yes Patient identity confirmed: arm band Reason for block: post-op pain management/at surgeon's request Staffing Anesthesiologist: Shawn Tran Performed by: anesthesiologist Preparation Sterility Preparation: hand hygiene performed prior to procedure, surgical cap used, mask used, sterile drape used during line insertion, skin prep agent completely dried prior to procedure Site Prep: Chloraprep Procedure Details Patient Position: supine Monitoring: Pulse OX, EKG and NIBP Block Type Lower Extremity: distal femoral (adductor canal) Laterality: rig (more content not included)... Chief Complaint and Reason for Visit Chief Complaint evaluation Chief Complaint Sleep apnea annual f ollow up Chief Complaint Cauda Equina Syndrom e s/p L4-5 Laminectomy/Fusion Reason for Visit Cauda equina janis france Impaired mobility and activities of daily living Post-operative pain S/P lumbar laminectomy Severe major depression Spinal stenosis at L4-L5 level Type II diabetes mellitus CAD (coronary artery disease) Generalized anxiety disorder Hyperlipidemia Hypertension Major psychotic depression, recurrent Chief Complaint Cauda Equina Syndrom e s/p L4-5 Laminectomy/Fusion Acute DC Reason for Visit Cauda equina janis france Impaired mobility and activities of daily living Post-operative pain S/P lumbar laminectomy Severe major depression Spinal stenosis at L4-L5 level Type II diabetes mellitus CAD (coronary artery disease) Generalized anxiety disorder Hyperlipidemia Hypertension Major psychotic depression, recurrent History of coronary artery bypass graft x 3 Spinal stenosis at L4-L5 level ST elevation myocardial infarction (STEMI) of inferior wall Type II diabetes mellitus CAD (coronary artery disease) Hyperlipidemia Hypertension Chief Complaint TOM KHAN is being seen for ABN EKG. Reason for Referral Specialty Diagnoses / Procedures Referred By Ish narvaez Referred To Contact Rehabilitation Diagnoses Tendinopathy of left rotator cuff Leeann Castillo APRN-CNP [address] [facility] [address] [place] [address] Referral ID Status Reason Start Date Expiration Date Visits Requested Visits Authorized [id number] Pending Review Specialty Services Required 11/15/2023 11/14/2024 1 1 Specialty Diagnoses / Procedures Referred By Ish t Referred To Contact Diagnoses Bilateral lower extremity edema Procedures Vas venous duplex lwr bilateral Leeann Castillo APRN-CNP [address] [facility] [address] [address] Referral ID Status Reason Start Date Expiration Date V isits Requested Visits Authorized [id number] Pending Review 11/15/2023 11/14/2024 1 1 Specialty Diagnoses / Procedures Referred By Ish t Referred To Contact Diagnoses Numbness in both legs Procedures Measure post void residual Ashley Rodriguez PA [address] [place] [address] Referral ID Status Reason Start Date Expiration Date V isits Requested Visits Authorized [id number] Pending Review 11/26/2023 11/25/2024 1 1 Specialty Diagnoses / Procedures Referred By Ish t Referred To Contact Radiology Diagnoses Biliary colic Procedures NM hepatobiliary system imaging with pharmacologic agent Leeann Castillo APRN-CNP [address] [facility] [address] [address] [facility] [address] [place] [address] Phone: [phone] Referral ID Status Reason Start Date Expiration Date V isits Requested Visits Authorized [id number] Authorized 11/23/2023 11/22/2024 5 5 Additional Source Comments (unrecognized sect ion and content) No Status Records FoundNo Status Records FoundNo Status Records FoundNo Status Records FoundNo Status Records FoundNo Status Records FoundNo Status Records FoundNo Status Records FoundNo Status Records FoundNo Status Records FoundNo Status Records FoundNo Status Records FoundNo Status Records FoundNo Status Records FoundNo Status Records FoundNo Status Records FoundNo Status Records FoundNo Status Records FoundNo Status Records FoundNo Status Records FoundNo Status Records FoundNo Status Records FoundNo Status Records Found INFORMATION SOURCE (unrecogn ized section and content) DATE CREATED AUTHOR 02/26/2018 [facility] DATE CREATED AUTHOR AUTHOR'S ORGANIZ ATION 02/26/2018 [facility] DATE CREATED AUTHOR AUTHOR'S ORGANIZ ATION 11/14/2018 [facility] DATE CREATED AUTHOR AUTHOR'S ORGANIZ ATION 04/14/2020 [facility] DATE CREATED AUTHOR AUTHOR'S ORGANIZ ATION 04/27/2020 [facility] DATE CREATED AUTHOR AUTHOR'S ORGANIZ ATION 01/12/2021 [facility] DATE CREATED AUTHOR AUTHOR'S ORGANIZ ATION 10/18/2021 [facility] DATE CREATED AUTHOR AUTHOR'S ORGANIZ ATION 11/25/2021 [facility] DATE CREATED AUTHOR AUTHOR'S ORGANIZ ATION 12/11/2021 [facility] DATE CREATED AUTHOR AUTHOR'S ORGANIZ ATION 03/23/2022 [facility] DATE CREATED AUTHOR AUTHOR'S ORGANIZ ATION 04/07/2022 [facility] DATE CREATED AUTHOR AUTHOR'S ORGANIZ ATION 01/09/2023 [facility] DATE CREATED AUTHOR AUTHOR'S ORGANIZ ATION 03/16/2023 [facility] [place] DATE CREATED AUTHOR AUTHOR'S ORGANIZ ATION 03/16/2023 [facility] DATE CREATED AUTHOR AUTHOR'S ORGANIZ ATION 07/25/2023 [facility] DATE CREATED AUTHOR AUTHOR'S ORGANIZ ATION 03/28/2024 [facility] DATE CREATED AUTHOR AUTHOR'S ORGANIZ ATION 04/05/2024 [facility] DATE CREATED AUTHOR AUTHOR'S ORGANIZ ATION 04/06/2024 [facility] DATE CREATED AUTHOR AUTHOR'S ORGANIZ ATION 06/03/2024 [facility] DATE CREATED AUTHOR AUTHOR'S ORGANIZ ATION 06/07/2024 [facility] DATE CREATED AUTHOR AUTHOR'S ORGANIZ ATION 06/12/2024 [facility] DATE CREATED AUTHOR AUTHOR'S ORGANIZ ATION 06/28/2024 [facility] DATE CREATED AUTHOR AUTHOR'S ORGANIZ ATION 07/01/2024 [facility] Goals (unrecognized section and content) Goals may be documented in a n alternate sectionGoals may be documented in an alternate sectionNo InformationNo InformationNot on filedocumented as of this encounterNot on filedocumented as of this encounterGoals may be documented in an alternate sectionGoals may be documented in an alternate section Care Teams (unrecognized sec tion and content) Team Status: Active Member Role Status Dates Tom Paniagua DO Primary Care Provider Active Team Status: Active Member Role Status Dates Tom Paniagua DO Primary Care Provider Active Sta rt: September 26, 2023 Bobby Portillo MD Admit Provid er, Other Provider Active Start: September 26, 2023 Lissa Melendez RN Other Provider Active Star t: September 26, 2023 Nancy Estrada , SAMUEL Other Provider Active Start : September 26, 2023 Norma Isabel RN Other Provider Active Start: J anuary 2023 Mary Jackson RN Other Provider Active Star t: September 26, 2023 Maricarmen Reddy RN Other Provider Active Start : September 26, 2023 Liza Laurent , SAMUEL Other Provider Active Start: J anuary 2023 Natali Dasilva MD Other Provider Active Start: September 26, 2023 Martin Dior MD Other Provider Active Start: J anuary 2023 Marley Barrera APRN Other Provider Active Start: September 26, 2023 Alfa Arrington DO Other Provider Active Start : September 26, 2023 Raffi Lopez MD Other Provider Active Start : September 26, 2023 Perry Tomas DO Other Provider Active Start: September 26, 2023 Tio Anderson MD Other Provider Active Start: September 26, 2023 Myrna Interiano MD Other Provider Active Start : September 26, 2023 Derick Perkins MD Other Provider Active Start: anuary 2023 Nuha Martinez APRN Other Provider Active Start: September 26, 2023 Sherif Almaraz MD Other Provider Active Start: September 26, 2023 Amaury Castaneda MD Other Provider Active Start: J anuary 2023 Cierra Slaughter MD Other Provider Active Start: September 26, 2023 Meera Shields MD Other Provider Active Start: September 26, 2023 Corin Evans DO Other Provider Active Start: September 26, 2023 Aren Song MD Other Provider Active Start: 2023 Messi Fry MD Other Provider Active Start: Sep Joyce Chapman , GENERAL OFFICE ASSOCIATE-C Other Provider Active St art: September 26, 2023 Leonora Levine APRN Other Provider Active Star t: September 26, 2023 Lev Webster MD Other Provider Active Start: September 26, 2023 Rigo Rosado MD Other Provider Active Start: ary 2023 Abilio Valentin MD Other Provider Active Start: Sep Alma Rosa Romero MD Other Provider Active Star t: September 26, 2023 Ever uKrtz MD Other Provider Active Start: anuary 2023 Jodee Mckeon DO Other Provider Active Start: ary 2023 David Ely DO Other Provider Active Start : September 26, 2023 Mc Duarte , Other Provider Active Sta rt: September 26, 2023 Kellie Elena APRN Other Provider Active Start: September 26, 2023 Hebert Bonilla DO Other Provider Active Start: September 26, 2023 Thomas Harris MD Other Provider Active Sta rt: September 26, 2023 Sully G Gavin , KNOTTER Other Provider Active Start : September 26, 2023 Yanet Hector , KNOTTER Other Provider Active St art: September 26, 2023 Dunia Franz MD Other Provider Active Start: J anuary 2023 Carlos Alcala MD Other Provider Active S tart: September 26, 2023 Shanice Guardado , KNOTTER Other Provider Active S tart: September 26, 2023 Cathy Sparks DO Other Provider Active Start: September 26, 2023 Jada Bob RN Other Provider Active Start: J anuary 2023 Vincent Oliveira MD Attending Pro vider, Other Provider Active Start: September 26, 2023 Team Status: Inactive Member Role Status Dates Tom Paniagua DO Primary Care Provider Active Lula Del Rosario MD Attending Provider Active Consulting Application Engineer Relationship Specialty Start Date End Date No, Physician [facility] PCP - General 07/20/17 Consulting Application Engineer Relationship Specialty Start Date End Date Tom Paniagua DO [address] [place] [address] PCP - General Internal Medicine 09/18/18 Consulting Application Engineer Relationship Specialty Start Date End Date Liza Sadaf, KNOTTER-FREIGHT TEAM ASSOCIATE [address] [place] [address] PCP - General Internal Medicine 09/26/23 Team Status: Active Member Role Status Dates Tom Paniagua DO Primary Care Provider Active Sta rt: October 06, 2023 Corin Evans DO Admit Provider, Atte nding Provider, Other Provider Active Start: October 06, 2023 Erin Somers RN Other Provider Active Star t: October 06, 2023 Kourtney Watts DO Other Provider Active Start : October 06, 2023 Oksana [place] MD Other Provider Active Start: October 06, 2023 Gita Arrington MD Other Provider Active Start: October 06, 2023 Charan Bautista MD Other Provider Active St art: October 06, 2023 José Manuel Zheng MD Other Provider Active Start: October 06, 2023 Chip Gvain , KNOTTER Other Provider Active Start: October 06, 2023 Awilda Simental MD Other Provider Active Start: ebruary 2023 Mei Thomas MD Other Provider Active Start: October 06, 2023 Baltazar Mora MD Other Provider Active Start: F ebruary 2023 Aissatou Thomas , FREIGHT TEAM ASSOCIATE-BC Other Provider Active Sta rt: October 06, 2023 Ramila Castillo MD Other Provider Active Start: October 06, 2023 Ivette Osorio MD Other Provider Active St art: October 06, 2023 Alek Damon MD Attending Provider Active Start: October 06, 2023 Consulting Application Engineer Relationship Specialty Start Date End Date Veronica De Jesus KNOTTER-FREIGHT TEAM ASSOCIATE [address] [place] [facility] [place] [address] PCP - General Internal Medicine 09/26/23 Consulting Application Engineer Relationship Specialty Start Date End Date Veronica De Jesus KNOTTER-MIGRATION AGENT [address] [place] [facility] [place] [address] PCP - General Family Medicine 10/17/23 Consulting Application Engineer Relationship Specialty Start Date End Date Veronica De Jesus KNOTTER-FREIGHT TEAM ASSOCIATE [address] [place] [place] [address] PCP - General Internal Medicine 09/26/23 Consulting Application Engineer Relationship Specialty Start Date End Date Leeann Castillo KNOTTER-MIGRATION AGENT [address] [facility] [address] [place] [address] PCP - General Internal Medicine 11/15/23 Consulting Application Engineer Relationship Specialty Start Date End Date Leeann Castillo KNOTTER-MIGRATION AGENT [address] [facility] [address] [place] [address] PCP - General Internal Medicine 11/15/23 Consulting Application Engineer Relationship Specialty Start Date End Date Leeann Castillo APRN-CNP [address] [facility] [address] [place] [address] PCP - General Internal Medicine 11/15/23 Consulting Application Engineer Relationship Specialty Start Date End Date Leeann Castillo APRN-CNP [address] [facility] [address] [place] [address] PCP - General Internal Medicine 11/15/23 Consulting Application Engineer Relationship Specialty Start Date End Date Leeann Castillo APRN-CNP [address] [facility] [address] [place] [address] PCP - General Internal Medicine 11/15/23 Consulting Application Engineer Relationship Specialty Start Date End Date Leeann Castillo APRN-CNP [address] [facility] [address] [place] [address] [place] [address] PCP - General Internal Medicine 11/15/23 Consulting Application Engineer Relationship Specialty Start Date End Date Leeann Castillo APRN-CNP [address] [facility] [address] [place] [address] PCP - General Internal Medicine 11/15/23 Consulting Application Engineer Relationship Specialty Start Date End Date Leeann Castillo APRN-CNP PCP - General Internal Medicine 12/04/23 Consulting Application Engineer Relationship Specialty Start Date End Date Leeann Castillo APRN-CNP [address] [facility] [address] [place] [address] PCP - General Internal Medicine 11/15/23 Consulting Application Engineer Relationship Specialty Start Date End Date Leeann Castillo APRN-CNP [address] [facility] [address] [place] [address] PCP - General Internal Medicine 11/15/23 Consulting Application Engineer Relationship Specialty Start Date End Date Tom Paniagua [address] [place] [address] PCP - General 12/12/00 Tom Gottlieb MD [address] [place] [address] Primary Staff Physician Cardiology 11/19/18 Consulting Application Engineer Relationship Specialty Start Date End Date Tom Paniagua [address] [place] [address] PCP - General 12/12/00 Tom Gottlieb MD [address] [place] [address] Primary Staff Physician Cardiology 11/19/18 Consulting Application Engineer Relationship Specialty Start Date End Date Leeann Castillo APRN-MIGRATION AGENT [address] [facility] [address] [place] [address] PCP - General Internal Medicine 11/15/23 Consulting Application Engineer Relationship Specialty Start Date End Date Leeann Castillo KNOTTER-MIGRATION AGENT [address] [facility] [address] [place] [address] PCP - General Internal Medicine 07/16/24 Gita Watts DO [address] [facility] [address] [place] [address] Consulting Physician Cardiology 07/16/24 Reason for Visit (unrecogniz ed section and content) Reason Comments Follow-up 6 m Specialty Diagnoses / Procedures Referred By Contac t Referred To Contact Cardiology Diagnoses CAD, multiple vessel Procedures Follow Up In Cardiology Gita Watts, [address] [place] [address] 2, [place] [phone] Phone: tel: fax: Gita Watts, [address] [place] [address] 2, [place] [phone] Phone: tel: fax: Referral ID Status Reason Start Date Expiration Date V isits Requested Visits Authorized [id number] Authorized 01/22/2024 01/21/2025 1 1 Reason Comments Diabetes Reason Comments Radio Gen RMP Reason Comments Follow-up Not able to have sx until next year, discuss B12 Reason Comments Follow-up 3 months Specialty Diagnoses / Procedures Referred By Contac t Referred To Contact Cardiology Diagnoses CAD, multiple vessel Procedures Follow Up In Cardiology Chip Gavin, KNOTTER-MIGRATION AGENT [address] [facility] [address], [place] [id number] Gita Watts, [address] [place] [address] 2, [place] [phone] Referral ID Status Reason Start Date Expiration Date V isits Requested Visits Authorized [id number] Authorized 10/17/2023 10/16/2024 1 1 Reason Comments Follow-up New pt/establish car e SOB/feet hurt Reason Comments New Patient Specialty Diagnoses / Procedures Referred By Contac t Referred To Contact Urology Diagnoses Numbness in both legs Bobbi Steen MD [address] [address] [facility] [address] [place] [phone] Referral ID Status Reason Start Date Expiration Date Visits Requested Visits Authorized [id number] Pending Review Specialty Services Required 11/01/2023 10/31/2024 1 1 Reason Comments Post-op 6 week post op s/p l umbar decompression with posterolateral fusion Reason Comments [place] [facility] [place]08 Reason Comments transition care Reason Onset Date Comments Hospital Follow-up 09/24/2023 Reason Comments Back Pain Specialty Diagnoses / Procedures Referred By Contac t Referred To Contact Pain Medicine Diagnoses Spinal stenosis of lumbar region without neurogenic claudication Tom Paniagua, DO [address] [place] [address] Gita Sutton MD [address] [place] [address] Referral ID Status Reason Start Date Expiration Date V isits Requested Visits Authorized [id number] Pending Review 09/11/2023 09/10/2024 1 1 Reason Onset Date Comments Med Refill 09/13/2023 Reason Comments Illness Uri x 2 weeks- concerned about cough/ sob Source Comments (unrecognize d section and content) In the event this informatio n is protected by the Federal Confidentiality of Alcohol and Drug Abuse Patient Records regulations: The Federal rules restrict any use of the information to criminally investigate or prosecute any alcohol or drug abuse patient.[facility] the event this information is protected by the Federal Confidentiality of Alcohol and Drug Abuse Patient Records regulations: The Federal rules restrict any use of the information to criminally investigate or prosecute any alcohol or drug abuse patient.[facility] FOR RECORDS PERTAINING TO PATIENTS WHO ARE OR HAVE BEEN ENROLLED IN A CHEMICAL DEPENDENCY/SUBSTANCEABUSE PROGRAM, SOME INFORMATION MAY BE OMITTED. This clinical summary was aggregated from multiple sources. Caution should be exercised in using it in the provision of clinical care. This summary normalizes information from multiple sources, and as a consequence, information in this document may materially change the coding, format and clinical context of patient data. In addition, data may be omitted in some cases. CLINICAL DECISIONS SHOULD BE BASED ON THE PRIMARY CLINICAL RECORDS. [facility] [employer]oco Controller [facility]. provides no warranty or guarantee of the accuracy or completeness of information in this document.
--- NOTE | 2024-07-17 20:19 | ECG_ITS ---
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
--- NOTE | 2024-07-17 20:23 | ED.ANXIETY1 ---
HPI - Anxiety General Chief Complaint: Anxiety Stated Complaint: coming off meds, anxiety Time Seen by Provider: 07/17/24 19:52 Source: patient Mode of arrival: walk-in Limitations: no limitations History of Present Illness HPI narrative: 68 male presents for anxiety. He is being weaned off of Ativan and his states that the patient is down to 0.5 mg once a day, at nighttime. He has been pacing and anxious. She tells me most of the history, he does contribute but she is a much better historian. She reports that he was talking about dying but that he would not kill himself. He states that he would from the hand of God because of his symptoms. He has not harmed himself in any fashion. He does not seem to have any physical pain and has not had a fever. Related Data Home Medications ?Medication ?Instructions ?Recorded ?Confirmed Vitamin B12 See Rx Instructions .Route .COMPLEX 07/23/23 07/17/24 buspirone 30 mg tablet 5 mg PO BID 07/23/23 07/17/24 carvedilol 12.5 mg tablet 12.5 mg PO BID 07/23/23 07/17/24 duloxetine 30 mg capsule,delayed 90 mg PO QAM 07/23/23 07/17/24 release insulin glargine U-300 conc 300 60 unit subcut QPM 07/23/23 07/17/24 unit/mL (3 mL) subcutaneous pen (Toujeo Max U-300 SoloStar) insulin lispro 200 unit/mL (3 mL) 1 sliding scale dose subcut TIDWM 07/23/23 07/17/24 subcutaneous pen (Humalog KwikPen U-200 Insulin) lorazepam 0.5 mg tablet 0.5 mg PO QPM 07/23/23 07/17/24 lorazepam 1 mg tablet 1 mg PO QAM 07/23/23 07/17/24 melatonin 3 mg tablet 6 mg PO QPM 07/23/23 07/17/24 semaglutide 2 mg/dose (8 mg/3 mL) 2 mg subcut QWEEK 07/23/23 07/17/24 subcutaneous pen injector (Ozempic) atorvastatin 80 mg tablet 80 mg PO DAILY 06/25/24 07/17/24 clopidogrel 75 mg tablet 75 mg PO DAILY 06/25/24 07/17/24 empagliflozin 25 mg tablet 25 mg PO DAILY 06/25/24 07/17/24 (Jardiance) losartan 25 mg tablet 25 mg PO DAILY 06/25/24 07/17/24 spironolactone 25 mg tablet 25 mg PO DAILY 06/25/24 07/17/24 trazodone 100 mg tablet 50 mg PO BEDTIME PRN sleep 06/25/24 07/17/24 Allergies Allergy/AdvReac Type Severity Reaction Status Date / Time No Known Drug Allergies Allergy Verified 07/17/24 20:08 Review of Systems ROS Narrative A ten point review of systems is negative except as noted above. PFSH PFSH Social History Little interest or pleasure in doing things: not at all Feeling down, depressed, or hopeless: not at all Exam Narrative Exam Narrative: Nurses note and vital signs reviewed and patient is not hypoxic. General: The patient appears in no respiratory distress. He is pacing around the room and occasionally mutters to himself. Skin: Warm, dry, no pallor noted. There is no rash noted. Head: Normocephalic, atraumatic Eye: Normal conjunctiva, no drainage Ears, Nose, Mouth, and Throat: oral mucosa is moist. Nares patent. Cardiovascular: Regular Rate and Rhythm Respiratory: Patient is in no distress, no accessory muscle use, lungs are clear to auscultation, no wheezing, rales or rhonchi Back: non-tender GI: Soft and nontender Musculoskeletal: The patient has no evidence of calf tenderness, no pitting edema, symmetrical pulses noted bilaterally Neurological: Awake and alert. Psychiatric: Mostly cooperative. Does follow all requests but often there is a delay in doing so. Constitutional Vital Signs, click to edit/add: Last Vital Signs Temp 98.1 F 07/17/24 19:56 Pulse 78 07/17/24 19:56 Resp 16 07/17/24 19:56 BP 208/106 H 07/17/24 19:56 Pulse Ox 98 07/17/24 19:56 O2 Del Method Room Air 07/17/24 19:56 Course Vital Signs Vital signs: Vital Signs Temperature 98.1 F 07/17/24 19:56 Pulse Rate 78 07/17/24 19:56 Respiratory Rate 16 07/17/24 19:56 Blood Pressure 208/106 H 07/17/24 19:56 Pulse Oximetry 98 07/17/24 19:56 Oxygen Delivery Method Room Air 07/17/24 19:56 Temperature 98.1 F 07/17/24 19:56 Pulse Rate 78 07/17/24 19:56 Respiratory Rate 16 07/17/24 19:56 Blood Pressure 208/106 H 07/17/24 19:56 Pulse Oximetry 98 07/17/24 19:56 Oxygen Delivery Method Room Air 07/17/24 19:56 MDM - Anxiety MDM Narrative Medical decision making narrative: The patient presented with anxiety which seems to be much better with 2 doses of Haldol, 2.5 mg each. The mental health services counselor is also seeing the patient and we have agreed that the patient will be discharged home. Findings are discussed with the patient and his . Differential Diagnosis Differential diagnosis: Likely hyperventilation and acute anxiety Lab Data Attestation: I reviewed the patient's lab results. Labs: Lab Results 07/17/24 07/17/24 Range/Units 20:50 21:00 WBC 10.3 (4.0-11.0) 10^3/uL RBC 4.81 (4.70-6.10) 10^6/uL Hgb 14.7 (14.0-18.0) g/dL Hct 44.0 (42.0-54.0) % MCV 91.5 (80.0-94.0) fL MCH 30.6 (25.9-34.0) pg MCHC 33.4 (29.9-35.2) g/dL RDW 14.7 (11.0-15.0) % Plt Count 283 (150-450) 10^3/uL MPV 9.0 L (9.5-13.5) fL Neut % (Auto) 64.9 (43.0-75.0) % Lymph % (Auto) 23.7 (20.5-60.0) % [place] % (Auto) 8.7 (1.7-12.0) % Eos % (Auto) 1.9 (0.9-7.0) % Baso % (Auto) 0.5 (0.2-2.0) % Neut # (Auto) 6.7 H (1.4-6.5) 10^3/uL Lymph # (Auto) 2.4 (1.2-3.8) 10^3/uL [place] # (Auto) 0.9 H (0.3-0.8) 10^3/uL Eos # (Auto) 0.2 (0.0-0.7) 10^3/uL Baso # (Auto) 0.1 (0.0-0.1) 10^3/uL Abs Immat Gran (auto) 0.03 (0.00-0.03) 10^3/uL Imm/Tot Granulo (auto) 0.3 (0.0-0.5) % Sodium 138 (136-145) mmol/L Potassium 3.8 (3.5-5.1) mmol/L Chloride 102 (98-107) mmol/L Carbon Dioxide 20.8 L (21.0-32.0) mmol/L Anion Gap 19.0 BUN 28.0 H (7.0-18.0) mg/dL Creatinine 1.02 (0.70-1.30) mg/dL Est GFR ( Amer) >60 (>=60 mL/min/1.73m^2) Est GFR (Non-Af Amer) >60 (>=60 mL/min/1.73m^2) BUN/Creatinine Ratio 27.5 Glucose 162 H (74-106) mg/dL Calcium 9.3 (8.5-10.1) mg/dL Urine Color Lt. yellow (YELLOW) Urine Clarity Clear (CLEAR) Urine pH 6.0 (5.0-9.0) Ur Specific [place] 1.015 (1.005-1.025) Urine Protein Negative (NEG/TRACE) mg/dL Urine Glucose (UA) >=1000 A (NEGATIVE) mg/dL Urine Ketones Negative (NEGATIVE) mg/dL Urine Occult Blood Negative (NEGATIVE) Urine Nitrite Negative (NEGATIVE) Urine Bilirubin Negative (NEGATIVE) Urine Urobilinogen 0.2 (0.2-1.0) EU/dL Ur Leukocyte Esterase Negative (NEGATIVE) Urine RBC None seen (0-2) #/HPF Urine WBC 0-2 A (NONE SEEN) #/HPF Ur Squamous Epith Cells Rare (NONE/RARE) #/LPF Urine Crystals None seen (None Seen) #/HPF Urine Bacteria None seen (NONE SEEN) #/HPF Urine Casts None seen (NONE SEEN) #/LPF Urine Mucus None seen (NONE SEEN) Salicylates <2.8 (<=19.9) mg/dL Urine Opiates Screen Negative (NEGATIVE) Ur Buprenorphine Scrn Negative (NEGATIVE) Ur Oxycodone Screen Negative (NEGATIVE) Urine Methadone Screen Negative (NEGATIVE) Acetaminophen <2.0 L (10.0-30.0) ug/mL Ur Barbiturates Screen Negative (NEGATIVE) U Tricyclic Antidepress Negative (NEGATIVE) Ur Phencyclidine Scrn Negative (NEGATIVE) Ur Amphetamines Screen Negative (NEGATIVE) U Methamphetamines Scrn Negative (NEGATIVE) U Benzodiazepines Scrn Positive A (NEGATIVE) Urine Cocaine Screen Negative (NEGATIVE) U Cannabinoids Screen Negative (NEGATIVE) Ethanol Quant <3 mg/dL Discharge Plan Discharge Chief Complaint: Anxiety Clinical Impression: Anxiety Patient Disposition: Home, Self-Care Time of Disposition Decision: 23:07 Condition: Good Mode of Transportation: Private Vehicle Prescriptions / Home Meds: No Action duloxetine 30 mg capsule,delayed release(DR/EC) 90 mg PO QAM buspirone 30 mg tablet 5 mg PO BID lorazepam 1 mg tablet 1 mg PO QAM lorazepam 0.5 mg tablet 0.5 mg PO QPM insulin glargine U-300 conc [Toujeo Max U-300 SoloStar] 300 unit/mL (3 mL) insulin pen 60 unit SUBCUT QPM Humalog KwikPen Insulin 200 unit/mL (3 mL) insulin pen 1 sliding scale dose SUBCUT TIDWM Ozempic 2 mg/dose (8 mg/3 mL) pen injector 2 mg subcut QWEEK carvedilol 12.5 mg tablet 12.5 mg PO BID melatonin 3 mg tablet 6 mg PO QPM Vitamin B12 100 mcg See Rx Instructions .ROUTE .COMPLEX Rx Instructions: 100 mcg in am; atorvastatin 80 mg tablet 80 mg PO DAILY clopidogrel 75 mg tablet 75 mg PO DAILY losartan 25 mg tablet 25 mg PO DAILY spironolactone 25 mg tablet 25 mg PO DAILY trazodone 100 mg tablet 50 mg PO BEDTIME PRN (Reason: sleep) Jardiance 25 mg tablet 25 mg PO DAILY Print Language: Kyrgyz Instructions: Anxiety (ED) Additional Instructions: Follow-up with your psychiatrist Referrals: Leeann Marshall NP [Primary Care Provider] - 1 week
[2024-07-17] MEDS: HALOPERIDOL LACTATE 5 MG/ML VIAL 2.5 MG IV ×2 (20:36→22:22)
[2024-07-17 21:00] VITALS: PULSE 77
[2024-07-17 21:12] LABS: Basophils Absolute Auto 0.1 10^3/uL (0.0-0.1); Basophils Percent Auto 0.5 % (0.2-2.0); Eosinophils Absolute Auto 0.2 10^3/uL (0.0-0.7); Eosinophils Percent Auto 1.9 % (0.9-7.0); Hemoglobin 14.7 g/dL (14.0-18.0); Immature Granulocytes Abs Auto 0.03 10^3/uL (0.00-0.03); Immature Granulocytes Pct Auto 0.3 % (0.0-0.5); Lymphocytes Absolute Auto 2.4 10^3/uL (1.2-3.8); Lymphocytes Percent Auto 23.7 % (20.5-60.0); Mean Corpuscular HGB Conc 33.4 g/dL (29.9-35.2); Mean Corpuscular Hemoglobin 30.6 pg (25.9-34.0); Mean Corpuscular Volume 91.5 fL (80.0-94.0); Monocytes Absolute Auto 0.9 10^3/uL (0.3-0.8); Monocytes Percent Auto 8.7 % (1.7-12.0); Neutrophils Absolute Auto 6.7 10^3/uL (1.4-6.5); Neutrophils Percent Auto 64.9 % (43.0-75.0); Platelet Count 283 10^3/uL (150-450); Red Blood Count 4.81 10^6/uL (4.70-6.10); Red Cell Distribution Width 14.7 % (11.0-15.0); White Blood Count 10.3 10^3/uL (4.0-11.0)
[2024-07-17 21:14] LABS: Bilirubin Urine NEGATIVE (NEGATIVE); Blood Urine NEGATIVE (NEGATIVE); Clarity Urine CLEAR (CLEAR); Color Urine LT. YELLOW (YELLOW); Glucose Urine UA >=1000 mg/dL (NEGATIVE); Ketones Urine NEGATIVE (NEGATIVE); Leukocyte Esterase Urine NEGATIVE (NEGATIVE); Nitrite Urine NEGATIVE (NEGATIVE); Protein Urine NEGATIVE (NEG/TRACE); Specific Gravity Urine 1.015 (1.005-1.025); Urobilinogen Urine 0.2 EU/dL (0.2-1.0)
[2024-07-17 21:27] LABS: Amphetamine Screen Urine NEGATIVE (NEGATIVE); Barbiturates Screen Urine NEGATIVE (NEGATIVE); Buprenorphine Screen Urine NEGATIVE (NEGATIVE); Cannabinoid Screen Urine NEGATIVE (NEGATIVE); Cocaine Screen Urine NEGATIVE (NEGATIVE); Methadone Screen Urine NEGATIVE (NEGATIVE); Methamphetamines Screen Urine NEGATIVE (NEGATIVE); Opiate Screen Urine NEGATIVE (NEGATIVE); Oxycodone Screen Urine NEGATIVE (NEGATIVE); Phencyclidine Screen Urine NEGATIVE (NEGATIVE); Tricyclic Antidepressant Urine NEGATIVE (NEGATIVE)
[2024-07-17 21:28] LABS: Benzodiazepines Screen Urine POSITIVE (NEGATIVE)
[2024-07-17 21:28] LABS: BUN Creatinine Ratio 27.5; Calcium 9.3 mg/dL (8.5-10.1); Carbon Dioxide 20.8 mmol/L (21.0-32.0); Chloride 102 mmol/L (98-107); Estimated GFR (African America >60 (>=60 mL/min/1.73m^2); Estimated GFR (Non-African Ame >60 (>=60 mL/min/1.73m^2); Glucose 162 mg/dL (74-106); Potassium 3.8 mmol/L (3.5-5.1); Salicylate <2.8 mg/dL (<=19.9); Sodium 138 mmol/L (136-145)
[2024-07-17 21:30] LABS: Bacteria Urine NONE SEEN #/HPF (NONE SEEN); Cast Seen? NONE SEEN #/LPF (NONE SEEN); Crystals Seen? None Seen #/HPF (None Seen); Mucus Urine NONE SEEN (NONE SEEN); RBC Urine NONE SEEN #/HPF (0-2); Squamous Epithelial Cell Urine RARE #/LPF (NONE/RARE); WBC Urine 0-2 #/HPF (NONE SEEN)
[2024-07-17 21:40] LABS: Acetaminophen <2.0 ug/mL (10.0-30.0); Ethanol <3 mg/dL
== END 2024-07-17 23:15 | disposition home or self-care (01) ==
PROVIDERS: Emergency Provider Emergency Medicine; PCP Nurse Practitioner
DX: F41.8 Other specified anxiety disorders (principal); Z79.899 Other long term (current) drug therapy
CPT/HCPCS: 36415; 80048; 80179; 80307; 80320; 80329; 81001; 85025; 93005; 96374; 96376; 99285; J1630

== ENCOUNTER 2024-07-26 10:03 | Emergency (ER) | payer MEDICARE, SELFPAY ==
[2024-07-26 10:12] VITALS: BP 128/80; PULSE 71; TEMP 36.4; O2SAT 99; BMI 32.8
--- OUTSIDE RECORDS SUMMARY | 2024-07-26 10:12 | XMS_ITS | CCD ---
Author Organization [facility] Care Team Providers Care Numerical Control Operator Name Role Phone ARLENEZL, CHAN E Unavailable Unavailable FENZL, CHAN E Unavailable Unavailable NOT SPECIFIED, Unavailable Unavailable FENZL, CHAN Heck Unavailable Unavailable NOT SPECIFIED, Unavailable Unavailable FIELER KARRI Unavailable Unavailable NO, PHYSICIAN Unavailable Unavailable MELODIE MONROE Admitting Unavailable MELODIE MONROE Attending Unavailable Provider, No Primary Care Provider UnavailDO Dane Moreno Emergency Provider Unavailable SIVA, DR SANTOS Primary Care Unavailable LESLYE, DR CHAN Santos Attending Unavailable LESLYE, DR CHAN Santos Admitting Unavailable LESLYE, DR CHAN Santos Consulting Unavailable CELINE OLIVERA Consulting Unavailable MACO [...] SANTOS Primary Care Unavailable LESLYE, DR CHAN Santos Consulting Unavailable LESLYE, DR CHAN Santos Attending Unavailable LESLYE, DR CHAN Santos Admitting Unavailable Sami Brunson Consulting Unavailable YUHAS, DR SANTOS Primary Care Unavailable BENEANTHONYCT, DR SOSA Attending Unavailable BENEDICT, DR SOSA Admitting Unavailable BENEDICT, DR SOSA Consulting Unavailable YUHAS, DR SANTOS Admitting Unavailable YUHAS, DR SANTOS Primary Care Unavailable YUHAS, DR SANTOS Consulting Unavailable YUHAS, DR SANTOS Attending Unavailable ZIEBER, DR IAN Santos Consulting Unavailable YUHAS, DR SANTOS Admitting Unavailable [...] Unavailable YUHAS, DR SANTOS Primary Care Unavailable [place], DR LULA Hall Consulting Unavailable GAVIN, DR CHAN Santos Consulting Unavailable GAVIN, DR CHAN Santos Attending Unavailable GAVIN, DR CHAN Santos Admitting Unavailable YUHAS, DR SANTOS Primary Care [...] ble YuTom hood DO Primary Care Provider [phone] Liza PROMOTIONAL REPRESENTATIVE-PROGRAM DEVELOPER, Maxime Reza Primary Care Provider Liza PROMOTIONAL REPRESENTATIVE-ASSEMBLER GOLD FRAME, Maxime Reza Primary Care Provider Rolando PROMOTIONAL REPRESENTATIVE-ASSEMBLER GOLD FRAME, Leeann Primary Care Provider [phone] Rolando PROMOTIONAL REPRESENTATIVE-ASSEMBLER GOLD FRAMELeeann Primary Care Provider Skyler Balbuena Attending Unavailable [...] Unavailable CASTILLO, LEEANN Primary Care Unavailable CASTILLO, ELEANN Referring Unavailable CASTILLO, LEEANN Primary Care Unavailable [...] Primary Care Unavailable CHIP GUTIÉRREZ Referring Unavailable WONGS, SADAF Primary Care Unavailable VANESSA TERAN Attending Unavailable [...] Attending Unavailable RUSHER, MC S Attending Unavailable ASHLEY RODRIGUEZ Attending Unavailable KUNS, SADAF [...] Unavailable YUHAS, TOM L Primary Care Unavailable BELL, POLLY B Referring Unavailable YUHAS, TOM L Primary Care Unavailable BELL, POLLY B Referring Unavailable YUHAS, TOM L Primary Care Unavailable YUHAS, TOM L Primary Care Unavailable BOBBI STEEN Attending Unavailable BOBBI STEEN Referring Unavailable YUHAS, TOM L Primary Care Unavailable CHRIS HERNANDEZ Referring Unavailable YUHAS, TOM L Primary Care Unavailable Yuhas, Tom Hiram Primary Care Provider Tom Gottlieb MD Unavailable BOBBI STEEN Attending Unavailable YUHAS, TOM L Referring Unavailable KUNS, SADAF Primary Care Unavailable CASTILLO LEEANN Attending Unavailable KUNS, SADAF Referring Unavailable [...] Consulting Unavailable Aren Song Consulting Unavailable Messi Fry Consulting Unavailable Joyce Chapman Consulting Unavailable Leonora Levine Consulting Unavailable Lev Webster Consulting Unavailab Rigo Greenfield Consulting Unavailable Abilio Valentin Consulting Unavailable Alma Rosa Romero Consulting Unavailable Ever Kurtz Consulting Unavailable Jodee Mckeon Consulting Unavailable David Ely Consulting Unavailable Mc Duarte Consulting Unavailable ObKellie manuel Consulting Unavailable Hebert Bonilla Consulting Unavailable CristinoomaThomas santos Consulting Unavailable Sully Gavin Consulting Unavailable Yanet Hector Consulting Unavailable Dunia Franz Consulting Unavailable Carlos Alcala Consulting Unavailable Shanice Guardado Consulting Unavailable Cathy Sparks Consulting Unavailable Jada Bob Consulting Unavailable Vincent Oliveira Consulting Unavailab Myrna Hoffmann Attending Unavailable Erin Somers Consulting Unavailable Corin Evans Admitting Unavailable Tom Paniagua Primary Care Unavailable Kourtney Watts Consulting Unavailable Oksana Lima Consulting Unavailable Gita Arrington Consulting Unavail able Charan Bautista Consulting Unavailable José Manuel Zheng Consulting Unavailab Chip Locke Consulting Unavailable Awilda Simental Consulting Unavailable Mei Thomas Consulting Unavailab Baltazar Burt Consulting Unavailable Aissatou Thomas Consulting Unavailable Ramila Castillo Consulting Unavailable Leeann Diaz Primary Care Provider Gita Watts DO Unavailable CHIP GAVIN Attending Unavailable MAXIME DE JESUS Primary Care Unavailable GITA WATTS Attending Unavailable CHIP GAVIN Referring Unavailable LEEANN CASTILLO Primary Care Unavailable GITA WATTS Attending Unavailable GITA WATTS Referring Unavailable LEEANN CASTILLO Primary Care Unavailable Medications Current Medications Medication Drug Class(es) Dates [...] Start: 10-06-2023 Bisacodyl A ctive 10 MG ID Daily 0 October 06, 2023 12:00am Start: [...] Indications: Chronic diastolic CHF (congestive heart failure) ([facility]) Take 1 tablet (12.5 mg total) by [...] Start: 09-26-2023 take 5000 [IU] by mo [facility] once daily Cholecalciferol (Vitamin D3) Active 5000 UNIT PO Daily September 26, 2023 12:00am take 1 tablet by lita in the morning cholecalciferol, vitamin D3, 5,000 [...] 30 mg oral tablet (2 sources) Uncompetitive Y-xhxrlk-Z-aspartat e Receptor Antagonist, Sigma-1 Agonist Start: 09-09-2020 [place] DMT 30-30 MG 1 tablet Orally every 6-8 hours for 7 days Sep, Active diclofenac sodium 0.01 mg/mg topical gel (1 source) Nonsteroidal Anti-inflammatory Drug Start: 10-06-2023 apply 2 g topically three times daily Diclofenac Sodium Active 2 GM TOPICAL Three times daily 0 October 06, 2023 12:00am docusate sodium 100 mg oral capsule (2 sources) Start: 10-06-2023 take 100 mg by mouth twice daily Docusate Sodium Active 100 MG PO Twice daily October 06, 2023 12:00am Start: 10-06-2023 Docusate Sodiu m (Enemeez) 283 mg/5 mL Enema Active 283 MG ID Daily October 06, 2023 12:00am DULoxetine 30 mg delayed release oral capsule (20 sources) Serotonin and Norepinephrine Reuptake Inhibitor Start: 06-02-2022 take 1 capsule by mouth once daily DULoxetine (CYMBALTA) 30 mg capsule TAKE 1 CAPSULE BY MOUTH EVERY DAY 08/07/2023 Active Start: 06-02-2022 take 1 capsule by mo [facility] in the morning DULoxetine (CYMBALTA) 60 mg capsule Take 1 capsule (60 mg total) by mouth in the morning. 60 mg in morning 30 at night. 0 06/02/2022 Active Start: 06-02-2022 DULoxetine (CY MBALTA) 60 mg capsule Take [...] gangrene, with long-term current use of insulin ([facility]) TAKE 1 TABLET (25 MG TOTAL) BY MOUTH IN THE MORNING 90 tablet 3 05/23/2024 Active Start: 09-26-2023 take 1 tablet by lita th once daily Empagliflozin (Jardiance) 25 mg [...] Discontinued 50 MG PO Three times daily 90 November [...] gangrene, with long-term current use of insulin ([facility]) Inject up to 100 units daily 30 [...] gangrene, with long-term current use of insulin ([facility]) Up to 20 units with meals + [...] sleep apnea , Prediabetes , Atherosclerosis of [place] coronary artery of [place] heart without angina pectoris , Vocal cord [...] SUBLINGUAL Q5M October 09, 2023 4:26pm nystatin [id number] unt/ml oral suspension (1 source) Polyene Antifungal Start: 01-04-2023 End: 01-14-2023 take 5 mL by mouth four times daily nystatin (MYCOSTATIN) 100,000 unit/mL suspension Take 5 mL (500,000 Units total) by mouth 4 (four) times a day for 10 days . 200 mL 0 01/04/2023 01/14/2023 Active omega 7-nyk-pzq-fish oil (Fish OiL) 1,000 mg (120 mg-180 mg) capsule (3 sources) take 1 capsule by mouth once daily omega 6-skv-ofg-fish oil (Fish OiL) 1,000 mg (120 mg-180 mg) capsule Take 1 capsule (1,000 mg) by mouth once daily. Active take 1 capsule by mouth once vicky ly omega 9-eto-tmo-fish oil (Fish OiL) 1,000 mg (120 mg-180 mg) capsule Take 1 capsule (1,000 mg) by mouth once daily. 0 Active omega 1-nct-fas-fish oil (Fi sh OiL) 300-1,000 mg capsule [...] Indications: Chronic diastolic CHF (congestive heart failure) ([facility]) TAKE 1 TABLET BY MOUTH IN THE MORNING AND BEFORE BEDTIME 180 tablet 0 09/04/2023 Active Start: 02-19-2023 take 1 tablet by lita th twice daily Entresto 24-26 MG Oral Tablet [...] gangrene, with long-term current use of insulin ([facility]) Inject 2 mg under the skin every [...] gangrene, with long-term current use of insulin ([facility]) Inject 2 mg under the skin every [...] Active Start: 01-15-2023 take 1 tablet by lita twice daily Vitamin B-12 100 MCG Oral Tablet Take 1 tablet twice daily Quantity: 0 Refills: 0 Ordered: 15-Jan-2023 DO Start : 15-Jan-2023 Active Completed/Discontinued Medications Medication Drug Class(es) Dates Sig (Normalized) Sig (Original) [id number] 200 actuat albuterol 0.09 mg/actuat metered dose [...] Start: 06-04-2022 take 1 tablet by lita in the morning busPIRone (BUSPAR) 30 mg [...] day. Active take 2 tablets by mo [facility] three times daily busPIRone (BUSPAR) 10 mg [...] 6:30pm docusate sodium 50 mg / sennosides, group home 8.6 mg oral tablet (4 sources) Start: [...] Indications: Chronic diastolic CHF (congestive heart failure) ([facility]) Take 1 tablet (40 mg total) by [...] 10-06-2023 Heparin(Porcine) In 0.45% Na cl Discontinued [id number] UNIT IV .[id number] 0 October 06, 2023 12:00am October 06, [...] hours Olanzapine Discontinued 5 MG PO Q6H 10 November 28, 2018 11:00pm September 26, 2023 6:38pm Start: 11-06-2018 End: 11-22-2018 take 5 mg by mouth twice daily Olanzapine Discontinued 5 MG PO Twice daily 28 November 06, 2018 12:00am November 22, 2018 [...] Discontinued 4 MG PO Every 8 hours October 06, 2023 12:00am October 09, 2023 [...] Start : 27-Jun-2022 Active polyethylene glycol 3350 87906 mg powder for oral solution (16 sources) [...] gangrene, with long-term current use of insulin ([facility]) Inject 0.5 mg under the skin every [...] gangrene, with long-term current use of insulin ([facility]) Inject 0.5 mg under the skin every [...] mg Tablet Discontinued 8.6 MG PO DAILY@12 0 October 06, 2023 12:00am October 09, [...] angina pectoris; Translations: [Atherosclerotic heart disease of [place] coronary artery without angina pectoris] Onset: 9 09-13-2017 Chronic Coronary atherosclerosis and other heart disease (7 sources) Presence of aortocoronary bypass graft; Translations: [Personal history of surgery to heart and great vessels, presenting hazards to health] Onset: 3 10-06-2023 Episodic Diabetes mellitus with complications (20 sources) Type [...] Translations: [Depressive disorder] Onset: 1 08-15-2018 Chronic Mood disorders (20 sources) Mood disorders; Translations: [Depression, unspecified] Onset: 3 Resolved: 4 09-11-2023 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 [...] nutritional; endocrine; and metabolic disorders (2 sources) Body mass index (BMI) 32.0-32.9, adult; Translations: [Body mass index (BMI) 32.0-32.9, adult] Onset: 4 Chronic Other nutritional; endocrine; and [...] signs] Onset: 4 Episodic Residual codes; unclassified (3 sources) Other specified health status; Translations: [Other specified health status] Onset: 4 Episodic Residual codes; unclassified (2 [...] [BRONCHITIS NOT SPEC ACUTE/CHRON] Onset: 06-27-2021 Episodic Deficiency and other anemia (19 sources) [...] hemiparesis; Translations: [Weakness] Onset: 06-28-2011 10-20-2018 Episodic Nausea and vomiting (2 sources) Postoperative nausea and vomiting; Translations: [Nausea with vomiting, unspecified] Onset: 04-12-2020 Resolved: 04-13-2020 04-13-2020 Episodic Nonspecific chest pain (1 source) Chest pain, unspecified; Translations: [Chest pain, unspecified] Onset: 07-17-2017 Episodic Other aftercare (1 source) Other long-term (current) drug therapy; Translations: [OTH [facility] CURRENT DRUG THERAPY] Onset: 12-20-2021 Episodic Other aftercare (7 sources) termite technician (current) use of insulin; Translations: [alf (current) use of insulin] Onset: 07-18-2022 Episodic [...] the circulatory system] Onset: 06-28-2011 06-28-2011 Episodic Retinal detachments; defects; vascular occlusion; and [...] 7.4 % Abnormal 4 - 7 % [facility] Interpretation and review of laboratory results Abnormal [facility] CBC AND AUTO DIFFon 10-08-20 24 ABSOLUTE BASOPHIL 0.0 X10E9/L Normal 0.0-0.2 [facility] Comment on above: Performed By: #### 3 0934-4 #### [facility] ([id number]) [address], [address] [place] [address] ABSOLUTE NEUTROPHIL 6.0 X10E9/L Normal 1.5-6.6 [facility] Comment on above: Performed By: #### 3 0934-4 #### [facility] ([id number]) [address], [address] [place] [address] Basophils/100 WBC (Bld) 0.3 % Normal [facility] Comment on above: Performed By: #### 3 0934-4 #### [facility] ([id number]) [address], [address] [place] [address] Eosinophils (Bld) [#/Vol] 0.1 10*3/uL Normal 0.0-0.4 [facility] Comment on above: Performed By: #### 3 0934-4 #### [facility] ([id number]) [address], [address] [place] [address] Eosinophils/100 WBC (Bld) 1.6 % Normal [facility] Comment on above: Performed By: #### 3 0934-4 #### [facility] ([id number]) [address], [address] [place] [address] Erythrocyte distribution width (RBC) [Ratio] 15.6 % High 11.5-15.0 [facility] Comment on above: Performed By: #### 3 0934-4 #### [facility] ([id number]) [address], [address] [place] [address] Hematocrit (Bld) [Volume fraction] 41.4 % Normal 39-49 [facility] Comment on above: Performed By: #### 3 0934-4 #### [facility] ([id number]) [address], [address] [place] [address] Hemoglobin (Bld) [Mass/Vol] 14.1 g/dL Normal 13.0-17.0 [facility] Comment on above: Performed By: #### 3 0934-4 #### [facility] ([id number]) [address], [address] [place] [address] Lymphocytes (Bld) [#/Vol] 1.5 10*3/uL Normal 1.0-3.5 [facility] Comment on above: Performed By: #### 3 0934-4 #### [facility] ([id number]) [address], [address] [place] [address] Lymphocytes/100 WBC (Bld) 17.8 % Normal [facility] Comment on above: Performed By: #### 3 0934-4 #### [facility] ([id number]) [address], [address] [place] [address] MCH (RBC) [Entitic mass] 31.3 pg Normal 27-34 [facility] Comment on above: Performed By: #### 3 0934-4 #### [facility] ([id number]) [address], [address] [place] [address] MCHC (RBC) [Mass/Vol] 34.1 g/dL Normal 32-36 [facility] Comment on above: Performed By: #### 3 0934-4 #### [facility] ([id number]) [address], [address] [place] [address] MCV (RBC) [Entitic vol] 92 fL Normal 80-100 [facility] Comment on above: Performed By: #### 3 0934-4 #### [facility] ([id number]) [address], [address] [place] [address] Monocytes (Bld) [#/Vol] 0.7 10*3/uL Normal 0-0.9 [facility] Comment on above: Performed By: #### 3 0934-4 #### [facility] ([id number]) [address], [address] [place] [address] Monocytes/100 WBC (Bld) 8.8 % Normal [facility] Comment on above: Performed By: #### 3 0934-4 #### [facility] ([id number]) [address], [address] [place] [address] Neutrophils/100 WBC (Bld) 71.5 % Normal [facility] Comment on above: Performed By: #### 3 0934-4 #### [facility] ([id number]) [address], [address] [place] [address] Platelet mean volume (Bld) [Entitic vol] 7.1 fL Normal 7-12 [facility] Comment on above: Performed By: #### 3 0934-4 #### [facility] ([id number]) [address], [address] [place] [address] Platelets (Bld) [#/Vol] 244 10*3/uL Normal 150-450 [facility] Comment on above: Performed By: #### 3 0934-4 #### [facility] ([id number]) [address], [address] [place] [address] RBC COUNT 4.51 X10E12/L Normal 4.10-5.70 [facility] Comment on above: Performed By: #### 3 0934-4 #### [facility] ([id number]) [address], [address] [place] [address] WBC (Bld) [#/Vol] 8.4 10*3/uL Normal 4.0-11.0 [facility] Comment on above: Performed By: #### 3 0934-4 #### [facility] ([id number]) [address], [address] [place] [address] COMPREHENSIVE METABOLIC PANE Néstor 06-10-2024 Albumin [Mass/Vol] 4.1 g/dL Normal 3.2-5.3 [facility] Comment on above: Performed By: #### 3 0934-4 #### [facility] ([id number]) [address], [address] [place] [address] ALP [Catalytic activity/Vol] 46 U/L Normal 39-130 [facility] Comment on above: Performed By: #### 3 0934-4 #### [facility] ([id number]) [address], [address] [place] [address] ALT [Catalytic activity/Vol] 23 U/L Normal 0-40 [facility] Comment on above: Performed By: #### 3 0934-4 #### [facility] ([id number]) [address], [address] [place] [address] Anion gap [Moles/Vol] 8 mmol/L Normal 5-15 [facility] Comment on above: Performed By: #### 3 0934-4 #### [facility] ([id number]) [address], [address] [place] [address] AST [Catalytic activity/Vol] 18 U/L Normal 0-41 [facility] Comment on above: Performed By: #### 3 0934-4 #### [facility] ([id number]) [address], [address] [place] [address] Bilirubin [Mass/Vol] 0.3 mg/dL Normal 0.3-1.2 [facility] Comment on above: Performed By: #### 3 0934-4 #### [facility] ([id number]) [address], [address] [place] [address] Calcium [Mass/Vol] 9.1 mg/dL Normal 8.5-10.5 [facility] Comment on above: Performed By: #### 3 0934-4 #### [facility] ([id number]) [address], [address] [place] [address] Chloride [Moles/Vol] 106 mmol/L Normal 98-109 [facility] Comment on above: Performed By: #### 3 0934-4 #### [facility] ([id number]) [address], [address] [place] [address] CO2 [Moles/Vol] 26 mmol/L Normal 22-32 [facility] Comment on above: Performed By: #### 3 0934-4 #### [facility] ([id number]) [address], [address] [place] [address] Creatinine [Mass/Vol] 0.78 mg/dL Normal 0.60-1.30 [facility] Comment on above: Result Comment: METH OD TRACEABLE TO IDMS STANDARD Performed By: #### 3 0934-4 #### [facility] ([id number]) [address], [address] [place] [address] eGFR (CKD-EPI) NON-RACE DEPENDENT >90 Normal >59 [facility] Comment on above: Result Comment: Reported eGFR is based on the CKD-EPI 2021 equation that does not use a race coefficient. Performed By: #### 3 0934-4 #### [facility] ([id number]) [address], [address] [place] [address] Glucose [Mass/Vol] 142 mg/dL High 65-99 [facility] Comment on above: Performed By: #### 3 0934-4 #### [facility] ([id number]) [address], [address] [place] [address] Potassium [Moles/Vol] 4.1 mmol/L Normal 3.5-5.0 [facility] Comment on above: Performed By: #### 3 0934-4 #### [facility] ([id number]) [address], [address] [place] [address] Protein [Mass/Vol] 7.1 g/dL Normal 6.0-8.0 [facility] Comment on above: Performed By: #### 3 0934-4 #### [facility] ([id number]) [address], [address] [place] [address] Sodium [Moles/Vol] 140 mmol/L Normal 134-146 [facility] Comment on above: Performed By: #### 3 0934-4 #### [facility] ([id number]) [address], [address] [place] [address] Urea nitrogen [Mass/Vol] 20 mg/dL Normal 5-27 [facility] Comment on above: Performed By: #### 3 0934-4 #### [facility] ([id number]) [address], [address] [place] [address] Glucose Glucometer (BldC) [M ass/Vol]on 06-10-2024 Glucose [Mass/Vol] 108 mg/dL High 65-99 [facility] LIPASEon 06-10-2024 Lipase [Catalytic activity/Vol] 38 U/L Normal 11-82 [facility] Comment on above: Performed By: #### 3 0934-4 #### [facility] ([id number]) [address], [address] [place] [address] MR CERVICAL SPINE WO CONTon 06-10-2024 MR [...] Corin Agee on 06/10/2024 6:04 PM Normal [facility] MR LUMBAR SPINE WO CONTon MR LUMBAR [...] Corin Agee on 06/10/2024 6:11 PM Normal [facility] MR THORACIC SPINE WO CONTon 06-10-2024 MR [...] Ovalle MD on 06/10/2024 6:05 PM Normal [facility] URN MACROSCOPIC NURon 2023 BILIRUBIN FERNANDO Negative Normal NEG [facility] Comment on above: Performed By: #### 3 0934-4 #### [facility] ([id number]) [address], [address] [place] [address] BLOOD/HGB FERNANDO Negative Normal NEG [facility] Comment on above: Performed By: #### 3 0934-4 #### [facility] ([id number]) [address], [address] [place] [address] GLUCOSE FERNANDO >=1000 Abnormal NEG [facility] Comment on above: Performed By: #### 3 0934-4 #### [facility] ([id number]) [address], [address] [place] [address] KETONES FERNANDO Negative Normal NEG [facility] Comment on above: Performed By: #### 3 0934-4 #### [facility] ([id number]) [address], [address] [place] [address] LEUKOCYTE ESTERASE FERNANDO Negative Normal NEG [facility] Comment on above: Performed By: #### 3 0934-4 #### [facility] ([id number]) [address], [address] [place] [address] NITRITE FERNANDO Negative Normal NEG [facility] Comment on above: Performed By: #### 3 0934-4 #### [facility] ([id number]) [address], [address] [place] [address] PH FERNANDO 6.5 Normal 5.0-8.5 [facility] Comment on above: Performed By: #### 3 0934-4 #### [facility] ([id number]) [address], [address] [place] [address] PROTEIN FERNANDO Negative Normal NEG [facility] Comment on above: Performed By: #### 3 0934-4 #### [facility] ([id number]) [address], [address] [place] [address] SPECIFIC GRAVITY FERNANDO 1.020 Normal 1.003-1.035 [facility] Comment on above: Performed By: #### 3 0934-4 #### [facility] ([id number]) [address], [address] [place] [address] UROBILINOGEN FERNANDO 0.2 eu/dL Normal <1.1 [facility] [facility] Comment on above: Performed By: #### 3 0934-4 #### [facility] ([id number]) [address], [address] [place] [address] Urine collection deviceon ER EXTRA URINES ER EXTRA URINE ORDER IN PROCESS Normal [facility] Coding Summaryon 03-25-2024 Coding Summary HTMLBase 64 WnsdepcnLUa1kPz+PGhlYWQ+ DV7LQMQaT01mkFCkhH3eJ3YK TElOSywgQVBQTElOSyIgbmFt FJ2deTBqKLMf IC8+HW3bXLNdCjazrJMjo6V8 zVB0F89uzz8aTNjvvQW9LVYp UwNnisltd4pkdPm6LLkvTfaw OyBt RLVvwH18NRI9dV90Yp71nTLz gADou6kizFe0LjUeTIDfXNE0 fOzjLTbql1SrCUYoQ37uyBEj c2U6 TFHdbRnikWWoJdWxnLT5mE8y FOelqlrio2mhcpttNtz6zv15 hLEvv9F3gZX5J8YkwfK6LRUw bGQg ChwibLYUuW3thijtt8dkfvwp SdMpBNDwEOc6RWo4OKCawRrn IsLwHO31BFQ7QAUtjwJfM6Ws LWFs qBheUlP9f1K2Nv3HU3UXJucm P0SNLGHNJOvovLP+OE82kx38 V0PaNxfkCae0SNEkWDB7tHM9 aD0n MLXzPQjhk7Y9hMN0Z8WmlgJc yp0gc2mkCTQfUQjpI40kiMCm z4A6WMKsoMZ6FBYnvJcqElBv aG93 Oyc+KGMvxLjfz4PxMufuv3zm a8xhiYg9CigqPMNrfqSamHzz XPQ7c5KnVo6nRGEedYX3qXS4 aD0i RoHfCuX6PDqiB127BhZhcQIz MfzoS47vR5LgsGS+PHRyPjx0 VHRwsUgvPA0tT7RjMPFdcahd bGVm zHqdBT1dGPLpwkdkMZNdbS0a NWRvC5y1DcXsEiY0EEdiS8Aq ZUSsqzxrLh62gG1iLuPqVlU5 MGlu F3IsiyA0YLFppVSlZEbeOGZ0 R30ql7F6BSDxEJFiJSC7bEN2 gF7gyHeayjzyhNCvfCgzjwUy dGlj THtiGAfjP051HIEpnHgrDjNa ZGluZyBEYXRlOiAgMDcvMjMv MjAyNDwvdGQ+DCCqSZC6hKrr PSAn kNCwSNjyTk0evBrtpGceRO8g GFQrobnjPWPyeH8sASVngXIx yWncHX2eMAMigdfna326RtJx MHB0 DGFvvYDwX0VnkN4oNqBhDZMo LDIsZ7DznQTzNEauA771ECnk LwV6ZWMullJlO8ZiFOWrpVtd OiB0 b8H5Hx2Oh8LmapptD2QhaKJy VtMlRxdeXXy7W5RtIsxrdCN+ MK36PSUhNP83LKo2EKW3nRlz PSdi SALfT7EosB3fKmThYCIuJCVl Oyc+PHRhYmxlIHdpZHRoPScx BLUbHoKrcUkzXL6uTk6jIBCp LWNv lHkxlFMaEoUkr0dmVCLmYFeo CH2woGrsQ3NbjBH1JYRzb5s8 Dr82A23rW7OvtEK+PGNvbCB3 aWR0 zG6gOdHuBvH2OIteQ963XgSx hZSlZavfa9nph3gdfXa8ZlT7 ASIpfqQvwJlsBEE5s9NbQw19 Y29s IHdpZHRoPSIxNSUiIHZhbGln sc3fdV3uBw1+VKOgqVF7vLW9 rA9fKeMyIkS2IDurG247DqZa cCIv Uzrob6coq5eukQx0UwPqEBXw wmEacTnzMVQ6p6PzBf75B6Nt iRdwr4RmAtg3pk53aWQmm4M2 bGU9 V9GbKNOwcrzjwNZovInuVT3i AHAgkthyKPAzpS2sJBKzJ1i8 MmTrBkX2AFuyG2HiqhK8DIEz bGQg BJGndXORbN4kinfui4cekobd AfZzBSOuVAv0RSq4JEKvpMio SvDkNHW6OgZ8ELP2pBTvnY5b bGln bxtqhA3wPeg+UVQ4fRAqaZAC GF6zZdfatDA+IAWnDAK2lVuu HNdoOXJcdO1eWFWmY5n5OlGi LjA1 FHumV2FnmiD0TFAefGHqXLAu tMUAkH6zzlrzx8mxkwjrHgRc ADNwELy4RYi6LJBkcZoxZyAz ZWZ0 ThL7JYA4lMVzuI4hzJjnxpha jA1lSkn+XgimjDvaCKT9SUw0 W3MqFrp9HDDbeIeaZY1evQKm ZGlu Bz5bdUwwuMdzAF1jGLXgyipl m982MeIkz9fmREAnjQEdATkl LFE7D88xy0J6IKMcKEPuHQE2 dGV4 wN7ozBlimjmrbHJtlHetuoQz xCmtECpiUBosD844RKVgtYvj XiJbHGh0H7QoJiu7XPBzgNrp ZT0n yHSdHQslUj5wcGqsdTeuQE3j SORdswlfa657HlMxq6oiDPEh xHGcCJovUXM3X50jo8S8QJOe MDAw SDK6oRW0mE8uyBttdamxhCBr uDcjsqYkyTauXWmgYZmcG159 IGEcfAosRmFlqKq6V1ZtXgy0 ZCBz aYzrOI9uyPIwZFrwOm5oxJhr nQejKI6gTBYgelcsd178VkGa k1cpVBSdzBAzYFrzXQA1R35e b3I6 MPYkGSHiMFF4mIT7hZ9sjRez bjogbGVmdDsgdmVydGljYWwt SLxpG165QEQwlLeqEwZfmGtv bnQg PPqdJLg5E5EgSufuuLR+PC90 TXTfIH60kWCxvQHih7aqzWw2 PnVmHVZpAKY2dXhaCWfnw0Ji ZXIt O43ykUBlv8R6WHQnxHteoXSb XgAujWK7jV6bUCivuvybc7rx mmawMzcol7fxfi88zR06V57h IHdp XUObWFIiBSSlKYIquHcrsw6f fG5sYt7+TJXlpDQ4fYM4hN2i HURuWtK0KFbyN907JrQspMHs Pjxj c9ggj6iwnSp1HuP5UYKzewNh bRjzZSI4e8MlEi13B30eELmr JFIkBIVgOESoQYMheSxnpz3n dG9w Ii8+SNFeiQZ4pJV1oV8bEwMw WeR2CNqoC220XtNpvSDkYkme Q13xX8WcyYL+ZAGtMbc2BSKc dHls ZL4ugHNbUXdaMl0fFCL6ZhEa CxYePHwoB3FxDQYgwclbzekl iWI5ZGNdWIFwdM64Qr7adJhr MTBw wVMBoH4zbtwqx2odmavjBcNh WWOhQGs7ENi9TZBanQlgGiQs MAJ3UeH0MAM6dOQmeK5isTvp bjog gT5tU5XpTFTgajthIu41dQ0f IqTzFvY0AXgfLnj+RkVITCwg Ba5JRpKJEA17UG69bBSlr8R4 bGU9 V2VxUJCuwhdfrrkfhHP9ARKm QHNtvP82vGDwRVbrQt1mi4X5 e142GLUcOUCjpE99Hq0fqSns MTBw oXFUzR7psijml4czqbvvRmLo WNYdGAp8SVv1UNWamXwdMoFt PLK2WbF5VIX1fSOsqN1btFij bjog tF1hOtl+ARCzHpLvIPs3SDhr dGQ+EGYwFNK6wTexHWcfKHAh kZ1sQFTvL3s5MmHuVoE7NKme O3Bh GRNabozqOl43wA0aVpPwGzV8 MDehH3YyigU2WAFqaMTxFKan CAP4B34yy7Y1OVXmDJYiSKE3 dGV4 bC0dpNyhglmcbHOaiTjaxjRy jIzeUHaoHWcjK629MXHjlEnl JuU3VNyjJLDcIW59DH74vXXd c3R5 nJC9R0XhCVJceeiqjyeagSO9 ILFhICUjzY54eCFsNLuePz9p k7A5m956VARaPSSfmS88Cb8h dDog JCVyePILwA0nynvhm2gjknxn NqIlPFOqABr4UBn3BJTdnNax RpPpTSY1IlN6ADM9iKLfyL7g bGln kqzzeH0mNqx+TUFMRTwvdGQ+ CLLiJXX4zGtxFEzfHQPliV8p FKAeS3l5ZxPhFtJ7GUwpT8Jp ZGRp ujbhRy04bO2tUwMdVsU6VBuj R8KfbmB4ZLVecEZlTNzoTUR1 K78al5C9QAJgHWAlLGK1rIQ0 dC1h bGlnbjogbGVmdDsgdmVydGlj XOfmITrrB228ISFszSqkZwGr WBEvPT0ebAwrjTA+GA70nx17 L3Rh NlwpUxj8LRKrIUC1gFQ4kL2a CQSbSLvra2T0wNN0C0CwquEf ce1pr0qtPZLhODijV20qlZWx c2U7 HRFslMR4HFRpqRfkOwThhA02 Oyc+AICvlKrsi3EsBmseh8gn j8rpwEg2BpXfKQObuwWkxQhq PSJ0 f7VhFm20C99yFTurSCWyUFNx OYOxBYSnbJskzu6veD6zXh4+ WHBlnWH5xUF3gW9xHxIfUvK5 YWxp P680HwDddYYxFbzrp1clg8il wMi4ViNdDDEmtqCugCysICJ9 v2YdRr94I0EuyOrbi8GhMfc9 cj48 dYLow5T4wWU7M0RbLFNiprlt cHGceGacMF6vBWRzddrpEDBq zX9mUBZuG0p8IaGqGzC5QFgp O2Zv koJ6RHObzHBuQPZpiUXHyD1f qpyiv9jjhbanKwUaJQLmHWd1 GMx9TMOjpTlxWmDwQFK2YoN5 ZXJ0 zPEfwL6vhIiqpyhtaW0fKdy+ LKt2s9twzGWxIU0fwWX3SM62 CB21tUXqg3T7uYN5P5CzFMSd bmct jlbxjSL4FXJiQDHioW63Qq6l dGwvTy3kRTAcUSB2JSGvgEJi H2CmtM8nWsYjHVTtTMLdA3Ei eHQt EVquP613KShdOjH9IVYcdnMs T2CxPJJobRerMuA2x1G0Qa3E OX95QD82ZZ53yVDnu6V3wFS8 J3Bh CYLkotdyyrnzpZL6MYZcAGMc tJ66Iz5hcWnaNv3aQIRmSEA0 WMTlaYLtX6AscB7kQhTnJONb MDAw R8LohOYsHQniA953HVsuTqP5 QZVtsoElJ6EjTVGmnQqvBeY5 d1O4Gp8EGh00XR06TQ52qZTh c3R5 hOP3G5FoNUClvjsjjohmdSU1 ODYlPULgsX41Xy7mnRqbLc0f GNAgLNQ3RNWpgIFyY1PrrC0a OiAj VVAkSVWlY8SyfEVkVMdhC283 AImcZkF4NEDwplNsP2QpWQHu mJrjKrG1n0P6Mq7CUTwjisw3 L3Rk PjwvdHI+US25PHJmWN57bDVq fGTiq2rqfFt7GaDePAFtYUC7 lNcdPJbrk7UkJVUjP10reIRl c2U6 IGN (more content not included)... [facility] Consent Formson 03-17-2024 Consent Forms [id number] [id number] TIFF [facility] ED Note - Physicianon 2023 ED [...] at discharge. Impression and Plan Diagnosis Diabetes (RMM14-IT E11.9, Discharge, Medical) Plan Condition: Stable. Disposition: Left against medical advice. [Electronically Signed on: 03/17/2024 06:00 EDT] Skyler Balbuena DO [Verified on: 03/17/2024 06:00 EDT] Skyler Balbuena DO Normal [facility] ED Clinical Summaryon 2023 ED Clinical Summary [facility] - Emergency Department [address] [place], [place] [id number] ED Clinical Summary PERSON INFORMATION Name: TOM KHAN Age: 68 Years Sex: MALE : 1955 MRN: Acct#: Visit Reason: Hypoglycemia; LOW BLOOD SUGAR Arrival: 03/15/2024 21:36:27 Discharge: 03/15/2024 23:10:00 LOS: 000 01:34 Check In: 03/15/2024 21:36:27 Checkout:03/15/2024 23:10:00 Address: [address] [place] [address] [address] [facility] [address] PCP: Provider, None PROVIDER INFORMATION Provider Role Assigned Unassigned Eli Estrada DESTINATION IMAGINATION COORDINATOR Nurse 03/15/2024 22:04:36 Skyler Balbuena DO ED Provider 03/15/2024 22:34:20 VITALS INFORMATION Vital [...] Patient/family/caregiver verbalizes understanding of instructions given Comment: [facility] ED Note-Nursingon 03-15-2024 ED Note-Nursing Patient tired of waiting. Wanted to leave AMA. Signed AMA paper and left. Did allow for one last finger stick blood sugar which was 144. [facility] ED Note-Nursing called. She was very [...] abrupt and said she may call back. [facility] ED Patient Education Noteon 03-15-2024 ED Patient Education Note Education Materials [facility] ED Patient Summaryon 024 ED Patient Summary [facility] - Emergency Department [address] [place] [address] PATIENT DISCHARGE INSTRUCTIONS Patient Information Name: TOM KHAN Age: 68 Years Date of : 1955 Reason For Visit: Hypoglycemia; LOW BLOOD SUGAR Arrival Time: 03/15/2024 21:36:27 Primary Care Physician: Provider, None Attending Physician: Skyelr Balbuena DO Comment: Visit Diagnosis: Diagnoses This Visit Hypoglycemia ([id number] -[id number]) The Pharmacy at [facility] is open Sunday through Sunday from [...] alcohol and/or drug addiction problems; contact the [facility] 26/03 Crisis Hotline -Text 3OKAS lb [phone]. If you received any narcotics, sedation, or [...] and treatment you received today in the [facility] Emergency Department were for an urgent problem and are not intended as complete care. It is important for you to follow up with a doctor, nurse practitioner, or physician?s printer floor covering assistant for ongoing care. If your symptoms [...] so we can reach you if necessary. [facility] Emergency Department has provided you with a complete list of medications post discharge. Please inform your intelligence operations specialist/provider of your visit and for further instruction [...] Yes Antibiotic (more content not included)... Normal [facility] POCT Glucose Levelon 024 Glucose [Mass/Vol] 144 mg/dL High 74-118 [facility] Comment on above: Result Comment: OPR_ ID=[email or web address],TGC FLAG = False,Meter:[id number] Securities Compliance Examiner:Marina Natalie Benitez Performed By: #### 4 [id number] #### [facility] (DEFAULT) [address] [place] [address] Glucose [Mass/Vol] 176 mg/dL High 74-118 [facility] Comment on above: Result Comment: OPR_ ID=[email or web address],TGC FLAG = False,Meter:[id number] Securities Compliance Examiner:[id number] Charlotte Abarca Performed By: #### 4 [id number] #### [facility] (DEFAULT) [address] [place] [address] XR ABDOMEN AP 1 VWon 024 XR [...] Reed MD on 03/15/2024 9:49 AM Normal [facility] C peptide [Mass/Vol]on 12-10 C PEPTIDE 1.80 ng/mL Normal 0.81-3.85 [facility] Comment on above: Result Comment: NOTE Test Performed By: [facility] [address] [place] [address] Doctor Of Veterinary Medicine: Verenice Painter III #[id number] Performed By: #### 1 744-2, 1920-8, 84144-2, 2089-1 #### [facility] ([id number]) [address] [place] [address], [address] [place] [id number] [place] HEPATOBILIARY SYS IMAGING W PHARMACOLOGIC AGENTon [...] Cormier MD on 12/06/2023 9:34 AM Normal [facility] Measure post void residualon 11-26-2023 Volume 102 [facility] POCT Urinalysis Auto, W/O Mi croscopyon 11-26-2023 External Poct Urine Blood Negative [facility] External Poct Urine Glucose 3+ [facility] External Poct Urine Ketones Negative [facility] External Poct Urine Leukocyte Esterase Negative [facility] External Poct Urine Nitrite Negative [facility] External Poct Urine Ph 6.0 [facility] External Poct Urine Protein Negative [facility] CBC AND AUTO DIFFon 11-16-19 24 ABSOLUTE BASOPHIL 0.0 X10E9/L Normal 0.0-0.2 [facility] Comment on above: Performed By: #### 1 744-2, 1920-04, , 2088-09 #### [facility] ([id number]) [address], [address] [place] [address] ABSOLUTE NEUTROPHIL 4.1 X10E9/L Normal 1.5-6.6 [facility] Comment on above: Performed By: #### 1 744-2, 1920-04, , 2088-09 #### [facility] ([id number]) [address], [address] [place] [address] Basophils/100 WBC (Bld) 0.6 % Normal [facility] Comment on above: Performed By: #### 1 744-2, 1920-04, , 2088-09 #### [facility] ([id number]) [address], [address] [place] [address] Eosinophils (Bld) [#/Vol] 0.3 10*3/uL Normal 0.0-0.4 [facility] Comment on above: Performed By: #### 1 744-2, 1920-04, , 2088-09 #### [facility] ([id number]) [address], [address] [address] Eosinophils/100 WBC (Bld) 3.8 % Normal [facility] Comment on above: Performed By: #### 1 744-2, 1920-04, , 2088-09 #### [facility] ([id number]) [address], [address] [address] Erythrocyte distribution width (RBC) [Ratio] 16.3 % High 11.5-15.0 [facility] Comment on above: Performed By: #### 1 744-2, 1920-04, , 2088-09 #### [facility] ([id number]) [address] [address] Hematocrit (Bld) [Volume fraction] 43.0 % Normal 39-49 [facility] Comment on above: Performed By: #### 1 744-2, 1920-04, , 2088-09 #### [facility] ([id number]) [address], [address] [address] Hemoglobin (Bld) [Mass/Vol] 14.3 g/dL Normal 13.0-17.0 [facility] Comment on above: Performed By: #### 1 744-2, 1920-04, , 2088-09 #### [facility] ([id number]) [address] [address] Lymphocytes (Bld) [#/Vol] 1.6 10*3/uL Normal 1.0-3.5 [facility] Comment on above: Performed By: #### 1 744-2, 1920-04, , 2088-09 #### [facility] ([id number]) [address], [address] [place] [address] Lymphocytes/100 WBC (Bld) 24.1 % Normal [facility] Comment on above: Performed By: #### 1 744-2, 1920-04, , 2088-09 #### [facility] ([id number]) [address], [address] [place] [address] MCH (RBC) [Entitic mass] 30.2 pg Normal 27-34 [facility] Comment on above: Performed By: #### 1 744-2, 1920-04, , 2088-09 #### [facility] ([id number]) [address], [address] [place] [address] MCHC (RBC) [Mass/Vol] 33.4 g/dL Normal 32-36 [facility] Comment on above: Performed By: #### 1 744-2, 1920-04, , 2088-09 #### [facility] ([id number]) [address], [address] [place] [address] MCV (RBC) [Entitic vol] 90 fL Normal 80-100 [facility] Comment on above: Performed By: #### 1 744-2, 1920-04, , 2088-09 #### [facility] ([id number]) [address], [address] [place] [address] Monocytes (Bld) [#/Vol] 0.7 10*3/uL Normal 0-0.9 [facility] Comment on above: Performed By: #### 1 744-2, 1920-04, , 2088-09 #### [facility] ([id number]) [address], [address] [place] [address] Monocytes/100 WBC (Bld) 10.3 % Normal [facility] Comment on above: Performed By: #### 1 744-2, 1920-04, , 2088-09 #### [facility] ([id number]) [address], [address] [place] [address] Neutrophils/100 WBC (Bld) 61.2 % Normal [facility] Comment on above: Performed By: #### 1 744-2, 1920-04, , 2088-09 #### [facility] ([id number]) [address], [address] [place] [address] Platelet mean volume (Bld) [Entitic vol] 7.5 fL Normal 7-12 [facility] Comment on above: Performed By: #### 1 744-2, 1920-04, , 2088-09 #### [facility] ([id number]) [address], [address] [place] [address] Platelets (Bld) [#/Vol] 290 10*3/uL Normal 150-450 [facility] Comment on above: Performed By: #### 1 744-2, 1920-04, , 2088-09 #### [facility] ([id number]) [address], [address] [place] [address] RBC COUNT 4.75 X10E12/L Normal 4.10-5.70 [facility] Comment on above: Performed By: #### 1 744-2, 1920-04, , 2088-09 #### [facility] ([id number]) [address], [address] [place] [address] WBC (Bld) [#/Vol] 6.7 10*3/uL Normal 4.0-11.0 [facility] Comment on above: Performed By: #### 1 744-2, 1920-8, 60178-1, 9-1 #### [facility] ([id number]) [address] [facility], [address] [place] [address] CBC auto differentialon 11-01 Basophils (Bld) [#/Vol] 0.0 10*3/uL [facility] Basophils/100 WBC (Bld) 0.6 % [facility] Eosinophils (Bld) [#/Vol] 0.3 10*3/uL [facility] Eosinophils/100 WBC (Bld) 3.8 % [facility] Erythrocyte distribution width (RBC) [Ratio] 16.3 % High 11.5 - 15.0 % [facility] Hematocrit (Bld) [Volume fraction] 43.0 % 39 - 49 % [facility] Hemoglobin (Bld) [Mass/Vol] 14.3 g/dL 13.0 - 17.0 g/dL [facility] Interpretation and review of laboratory results Abnormal [facility] Lymphocytes (Bld) [#/Vol] 1.6 10*3/uL [facility] Lymphocytes/100 WBC (Bld) 24.1 % [facility] MCH (RBC) [Entitic mass] 30.2 pg 27 - 34 pg [facility] MCHC (RBC) [Mass/Vol] 33.4 g/dL 32 - 36 g/dL [facility] MCV (RBC) [Entitic vol] 90 fL 80 - 100 fL [facility] Monocytes (Bld) [#/Vol] 0.7 10*3/uL [facility] Monocytes/100 WBC (Bld) 10.3 % [facility] Neutrophils (Bld) [#/Vol] 4.1 10*3/uL [facility] Neutrophils/100 WBC (Bld) 61.2 % [facility] Platelet mean volume (Bld) [Entitic vol] 7.5 fL 7 - 12 fL [facility] Platelets (Bld) [#/Vol] 290 10*3/uL [facility] RBC (Bld) [#/Vol] 4.75 10*6/uL [facility] WBC corrected for nucl RBC Auto (Bld) [#/Vol] 6.7 [facility] COMPREHENSIVE METABOLIC PANE Néstor 11-16-2023 Albumin [Mass/Vol] 4.5 g/dL Normal 3.2-5.3 [facility] Comment on above: Performed By: #### 1 744-2, 1920-04, , 2088-09 #### [facility] ([id number]) [address], [address] [place] [address] ALP [Catalytic activity/Vol] 56 U/L Normal 39-130 [facility] Comment on above: Performed By: #### 1 744-2, 1920-04, , 2088-09 #### [facility] ([id number]) [address], [address] [place] [address] ALT [Catalytic activity/Vol] 38 U/L Normal 0-40 [facility] Comment on above: Performed By: #### 1 744-2, 1920-04, , 2088-09 #### [facility] ([id number]) [address], [address] [place] [address] Anion gap [Moles/Vol] 10 mmol/L Normal 5-15 [facility] Comment on above: Performed By: #### 1 744-2, 1920-04, , 2088-09 #### [facility] ([id number]) [address], [address] [place] [address] AST [Catalytic activity/Vol] 23 U/L Normal 0-41 [facility] Comment on above: Performed By: #### 1 744-2, 1920-04, , 2088-09 #### [facility] ([id number]) [address], [address] [place] [address] Bilirubin [Mass/Vol] 0.6 mg/dL Normal 0.3-1.2 [facility] Comment on above: Performed By: #### 1 744-2, 1920-04, , 2088-09 #### [facility] ([id number]) [address], [address] [place] [address] Calcium [Mass/Vol] 9.7 mg/dL Normal 8.5-10.5 [facility] Comment on above: Performed By: #### 1 744-2, 1920-04, , 2088-09 #### [facility] ([id number]) [address], [facility] [address] [place] [address] Chloride [Moles/Vol] 105 mmol/L Normal 98-109 [facility] Comment on above: Performed By: #### 1 744-2, 1920-04, , 2088-09 #### [facility] ([id number]) [address], [address] [place] [address] CO2 [Moles/Vol] 26 mmol/L Normal 22-32 [facility] Comment on above: Performed By: #### 1 744-2, 1920-04, , 2088-09 #### [facility] ([id number]) [address], [address] [place] [address] Creatinine [Mass/Vol] 0.85 mg/dL Normal 0.60-1.30 [facility] Comment on above: Result Comment: METH OD TRACEABLE TO IDMS STANDARD Performed By: #### 1 744-2, 1920-04, , 2088-09 #### [facility] ([id number]) [address], [address] [place] [address] eGFR (CKD-EPI) NON-RACE DEPENDENT >90 Normal >59 [facility] Comment on above: Result Comment: Reported eGFR is based on the CKD-EPI 2020 equation that does not use a race coefficient. Performed By: #### 1 744-2, 1920-04, , 2088-09 #### [facility] ([id number]) [address], [address] [place] [address] Glucose [Mass/Vol] 129 mg/dL High 65-99 [facility] Comment on above: Performed By: #### 1 744-2, 1920-04, , 2088-09 #### [facility] ([id number]) [address], [address] [place] [address] Potassium [Moles/Vol] 4.3 mmol/L Normal 3.5-5.0 [facility] Comment on above: Performed By: #### 1 744-2, 1920-04, , 2088-09 #### [facility] ([id number]) [address], [address] [place] [address] Protein [Mass/Vol] 7.8 g/dL Normal 6.0-8.0 [facility] Comment on above: Performed By: #### 1 744-2, 1920-04, , 2088-09 #### [facility] ([id number]) [address], [address] [place] [address] Sodium [Moles/Vol] 141 mmol/L Normal 134-146 [facility] Comment on above: Performed By: #### 1 744-2, 1920-04, , 2088-09 #### [facility] ([id number]) [address], [address] [place] [address] Urea nitrogen [Mass/Vol] 25 mg/dL Normal 5-27 [facility] Comment on above: Performed By: #### 1 744-2, 1920-04, , 2088-09 #### [facility] ([id number]) [address], [address] [place] [address] Comprehensive metabolic pane néstor 11-16-2023 Albumin [Mass/Vol] 4.5 g/dL 3.2 - 5.3 g/dL [facility] ALP [Catalytic activity/Vol] 56 U/L 39 - 130 U/L [facility] ALT No additional P-5'-P [Catalytic activity/Vol] 38 U/L 0 - 40 U/L [facility] Anion gap [Moles/Vol] 10 mmol/L 5 - 15 mmol/L [facility] AST [Catalytic activity/Vol] 23 U/L 0 - 41 U/L [facility] Bilirubin [Mass/Vol] 0.6 mg/dL 0.3 - 1.2 mg/dL [facility] Calcium [Mass/Vol] 9.7 mg/dL 8.5 - 10. 5 mg/dL [facility] Chloride [Moles/Vol] 105 mmol/L 98 - 109 mmol/L [facility] CO2 [Moles/Vol] 26 mmol/L 22 - 32 mmol/L [facility] Creatinine [Mass/Vol] 0.85 mg/dL 0.60 - 1.30 mg/dL [facility] Comment on above: METHOD TRACEABLE TO [facility] STANDARD eGFR (CKD-EPI)non-race dependent - PINF [facility] Comment on above: Reported eGFR is based on the CKD-EPI 2020 equation that does not use a race coefficient. Glucose [Mass/Vol] 129 mg/dL High 65 - 99 mg/dL [facility] Potassium [Moles/Vol] 4.3 mmol/L 3.5 - 5.0 mmol/L [facility] Protein [Mass/Vol] 7.8 g/dL 6.0 - 8.0 g/dL [facility] Sodium [Moles/Vol] 141 mmol/L 134 - 146 mmol/L [facility] Urea nitrogen [Mass/Vol] 25 mg/dL 5 - 27 mg/dL [facility] Lipid 1996 panelon Cholesterol [Mass/Vol] 149 mg/dL Low 150 - 200 mg/dL [facility] Cholesterol in HDL [Mass/Vol] 45 mg/dL 39 - PINF mg/dL [facility] Comment on above: HDL <40 mg/dL - High Risk HDL > or = 40mg/dL- Desirable HDL >60 mg/dL - Negative Risk Cholesterol in LDL [Mass/Vol] 66 mg/dL NINF - 130 mg/dL [facility] Comment on above: LDL <100 mg/dL - Desirable LDL >160 mg/dL - High Risk Cholesterol in VLDL [Mass/Vol] 38 mg/dL High 0 - 30 mg/dL [facility] Cholesterol.total/ Cholesterol in HDL [Mass ratio] 3.3 {ratio} 1.0 - 5.0 [facility] Triglyceride [Mass/Vol] 192 mg/dL High 27 - 150 mg/dL [facility] Cholesterol [Mass/Vol] 149 mg/dL Low 150-200 [facility] [facility] Comment on above: Performed By: #### 1 744-2, 1920-04, , 2088-09 #### [facility] ([id number]) [address], [address] [place] [address] Cholesterol in HDL [Mass/Vol] 45 mg/dL Normal >39 [facility] Comment on above: Result Comment: HDL <40 mg/dL - High Risk HDL > or = 40mg/dL- Desirable HDL >60 mg/dL - Negative Risk Performed By: #### 1 744-2, 1920-04, , 2088-09 #### [facility] ([id number]) [address], [address] [place] [address] Cholesterol in LDL [Mass/Vol] 66 mg/dL Normal <130 [facility] Comment on above: Result Comment: LDL <100 mg/dL - Desirable LDL >160 mg/dL - High Risk Performed By: #### 1 744-2, 1920-04, , 2088-09 #### [facility] ([id number]) [address], [address] [place] [address] Cholesterol in VLDL [Mass/Vol] 38 mg/dL High 0-30 [facility] Comment on above: Performed By: #### 1 744-2, 1920-04, , 2088-09 #### [facility] ([id number]) [address], [address] [place] [address] CHOLESTEROL:HDL 3.3 Normal 1.0-5.0 [facility] Comment on above: Performed By: #### 1 744-2, 1920-04, , 2088-09 #### [facility] ([id number]) [address], [address] [place] [address] Triglyceride [Mass/Vol] 192 mg/dL High 27-150 [facility] Comment on above: Performed By: #### 1 744-2, 1920-04, , 2088-09 #### [facility] ([id number]) [address], [address] [place] [address] Natriuretic peptide B [Mass/ Vol]on 11-16-2023 Natriuretic peptide B (Bld) [Mass/Vol] 37 pg/mL NINF - 100.0 pg/mL [facility] Natriuretic peptide B (Bld) [Mass/Vol] 37 pg/mL Normal <100.0 [facility] Comment on above: Performed By: #### 1 744-2, 1920-04, , 2088-09 #### [facility] ([id number]) [address], [address] [place] [address] No Panel Informationon 11-15 Interpretation and review of laboratory results Abnormal [facility] Prostate specific Ag [Mass/V ol]on 11-16-2023 [facility] PSA SCREEN 0.98 ng/mL Normal 0.00-4.00 [facility] Comment on above: Result Comment: The method used for this test is Roseline Nellie DXI chemiluminescent immunoassay. Values obtained by different assay methods cannot be used interchangeably. Performed By: #### 1 744-2, 1920-04, , 2088-09 #### [facility] ([id number]) [address], [address] [place] [address] Prostatic specific antigen s creenon 11-16-2023 Prostate specific Ag [Mass/Vol] 0.98 ng/mL 0.00 - 4.00 ng/mL [facility] Comment on above: The method used for this test is Roseline Rowe DXI chemiluminescent immunoassay. Values obtained by different assay methods cannot be used interchangeably. TSH WITH REFLEXon 11-16-2023 TSH 1.35 uIU/mL Normal 0.49-4.67 [facility] Comment on above: Performed By: #### 1 744-2, 1920-04, , 2088-09 #### [facility] ([id number]) [address], [address] [place] [address] TSH with Reflexon 11-16-2023 TSH Qn 1.35 m[IU]/L [facility] US ABDOMEN LMTDon 11-16-2023 US ABDOMEN [...] Ware MD on 11/16/2023 4:14 PM Normal [facility] US Abdomen limitedon 024 Clinical history: Ri ght upper quadrant [...] A Ware MD on 11/16/2023 4:14 PM [facility] Miguel A Ware MD - 11/16/2023 Clinical [...] A Ware MD on 11/16/2023 4:14 PM [facility] US Abdomen limitedOrdered By : Miguel A Ware on 11-16-2023 [employer] Work Phone: US.doppler Lower extremity v ein [...] vein is not visualized or surgically absent. CARDIOVASCULAR Master Teixeira MD - 11/16/2023 Right: Limited visualization of [...] vein is not visualized or surgically absent. [facility] Radiology Study observation (narrative) [facility] US.doppler Lower extremity v ein - bilateralOrdered By: Devika Wilks on 11-16-2023 [facility] Work Phone: XR CHEST 2 VWSon [...] Hassan MD on 11/16/2023 10:44 AM Normal [facility] XR Chest PA and Lateralon XR CHEST [...] Reilly Hassan MD on 11/16/2023 10:44 AM Reilly Alvares M D - 11/16/2023 XR CHEST 2 [...] Chaz Nunez MD on 11/16/2023 8:59 AM I, Reilly Hassan MD have personally reviewed the image(s) and agree with and/or edited the report Finalized by Reilly Hassan MD on 11/16/2023 10:44 AM [facility] Radiology Study observation (narrative) [facility] XR Chest PA and LateralOrder ed By: Reilly Hassan on 11-16-2023 [facility] Work Phone: BASIC METABOLIC PANLon 10-24 Anion gap [Moles/Vol] 9 mmol/L Normal - [facility] Comment on above: Performed By: #### B , 46126-1 #### [facility] ([id number]) [address], [address] [place] [address] Calcium [Mass/Vol] 9.3 mg/dL Normal 8.5-10.5 [facility] Comment on above: Performed By: #### Aristeo FRANKEL, #### [facility] ([id number]) [address], [address] [place] [address] Chloride [Moles/Vol] 106 mmol/L Normal 98-109 [facility] Comment on above: Performed By: #### Aristeo FRANKEL, #### [facility] ([id number]) [address], [address] [place] [address] CO2 [Moles/Vol] 22 mmol/L Normal 22-32 [facility] Comment on above: Performed By: #### Aristeo FRANKEL, #### [facility] ([id number]) [address], [address] [place] [address] Creatinine [Mass/Vol] 0.74 mg/dL Normal 0.60-1.30 [facility] Comment on above: Result Comment: METH OD TRACEABLE TO IDMS STANDARD Performed By: #### Aristeo FRANKEL, #### [facility] ([id number]) [address], [address] [place] [address] eGFR (CKD-EPI) NON-RACE DEPENDENT >90 Normal >59 [facility] Comment on above: Result Comment: Reported eGFR is based on the CKD-EPI 1 equation that does not use a race coefficient. Performed By: #### Aristeo FRANKEL, #### [facility] ([id number]) [address], [address] [place] [address] Glucose [Mass/Vol] 218 mg/dL High 65-99 [facility] Comment on above: Performed By: #### Aristeo FRANKEL, #### [facility] ([id number]) [address], [address] [place] [address] Potassium [Moles/Vol] 4.3 mmol/L Normal 3.5-5.0 [facility] Comment on above: Performed By: #### Aristeo FRANKEL, #### [facility] ([id number]) [address], [address] [place] [address] Sodium [Moles/Vol] 137 mmol/L Normal 134-146 [facility] Comment on above: Performed By: #### Aristeo FRANKEL, 03841-3 #### [facility] ([id number]) [address], [address] [place] [address] Urea nitrogen [Mass/Vol] 26 mg/dL Normal 5-27 [facility] Comment on above: Performed By: #### Aristeo FRANKEL, 92144-9 #### [facility] ([id number]) [address], [address] [place] [address] Basic Metabolic Panelon Anion gap [Moles/Vol] 12.4 mmol/L Normal 6.0-15.0 [facility] Comment on above: Performed By: #### C BC, BMP #### [facility] [address] [place] [address] [place] Calcium [Mass/Vol] 9.0 mg/dL Normal 8.6-10.3 [facility] Comment on above: Performed By: #### C BC, BMP #### [facility] [address] [place] [address] [place] Chloride [Moles/Vol] 104 mmol/L Normal 98-107 [facility] Comment on above: Performed By: #### C BC, BMP #### [facility] [address] [place] [address] [place] CO2 [Moles/Vol] 25.7 mmol/L Normal 21.0-31.0 [facility] Comment on above: Performed By: #### C BC, BMP #### [facility] [address] [place] [address] [place] Creatinine [Mass/Vol] 0.97 mg/dL Normal 0.70-1.30 [facility] Comment on above: Performed By: #### C BC, BMP #### [address] Creatinine Clr Calc Pharmacy 93.62 Normal [facility] Comment on above: Result Comment: PERF ORMED BY: [place] [address] PATHOLOGIST CARD WRITER HAND PAULA STEWART M.D. Performed By: #### C BC, BMP #### [place] [address] [place] GFR/1.73 sq M.predicted MDRD (S/P/Bld) [Vol rate/Area] mL/min/{1.73_m2} Normal [facility] Comment on above: Performed By: #### C BC, BMP #### [address] Glucose [Mass/Vol] 144 mg/dL High 70-100 [facility] Comment on above: Result Comment: Romeo Glucose Reference Range is dependent on time and content of last meal. Glucose of more than 200 mg/dL in a nonstressed, ambulatory subject supports the diagnosis of Diabetes Mellitus. ADA recommended reference range Performed By: #### C BC, BMP #### [address] Potassium [Moles/Vol] 4.1 mmol/L Normal 3.5-5.1 [facility] Comment on above: Performed By: #### C BC, BMP #### [address] Sodium [Moles/Vol] 138 mmol/L Normal 136-145 [facility] Comment on above: Performed By: #### C BC, BMP #### [address] Urea nitrogen [Mass/Vol] 23 mg/dL Normal 7-25 [facility] Comment on above: Performed By: #### C BC, BMP #### [address] ECG 12 lead ECGon 10-09-2023 [address] [facility] [place] [address] [place] [address] Electrocardiograph Report Signed Patient: Tom Khan MR#: [id number] : 1955 Acct:[id number] Age/Sex: 68 / M ADM Date: 10/06/23 Loc: Room: [address] [place] [address] Type: ADM IN Attending Dr: Myrna Interiano [...] Bautista MD 0 10/09/23 1230 Normal [facility] Glucose Poct Glucometerson 0 10-09-2023 Commemt1 Glu2: Cleaned Meter Normal [facility] Comment on above: Result Comment: PERF ORMED BY: [place] [address] PATHOLOGIST CARD WRITER HAND PAULA STEWART M.D. Performed By: #### C BC, BMP #### [place] [id number] [facility] Glucose [Mass/Vol] 156 mg/dL Normal [facility] Comment on above: Result Comment: [place]o Glucose Reference Range is dependent on time and content of last meal. Glucose of more than 200 mg/dL in a nonstressed, ambulatory subject supports the diagnosis of Diabetes Mellitus. Performed By: #### C BC, BMP #### [address] Commemt1 Glu2: Cleaned Meter Normal [facility] Comment on above: Result Comment: PERF ORMED BY: [place] [address] PATHOLOGIST CARD WRITER HAND PAULA STEWART M.D. Performed By: #### C BC, BMP #### [address] Glucose [Mass/Vol] 228 mg/dL Normal [facility] Comment on above: Result Comment: Romeo Glucose Reference Range is dependent on time and content of last meal. Glucose of more than 200 mg/dL in a nonstressed, ambulatory subject supports the diagnosis of Diabetes Mellitus. Performed By: #### C BC, BMP #### [address] Urinalysison 10-09-2023 Appearance (U) Clear Normal Clear [facility] Comment on above: Order Comment: Name Collection Type:: Clean-Voided Midstream Performed By: #### C MP, MG, LIPID #### [address] Bilirubin,Urine Negative Normal Negative [facility] Comment on above: Order Comment: Name Collection Type:: Clean-Voided Midstream Performed By: #### C MP, MG, LIPID #### [address] Color (U) Yellow Normal Yellow [facility] Comment on above: Order Comment: Name Collection Type:: Clean-Voided Midstream Performed By: #### C MP, MG, LIPID #### [address] Glucose Ql (U) >=1000 High Normal [facility] Comment on above: Order Comment: Name Collection Type:: Clean-Voided Midstream Performed By: #### C MP, MG, LIPID #### [facility] [address] [place] [address] [place] Ketones Ql (U) Negative Normal Negative [facility] Comment on above: Order Comment: Name Collection Type:: Clean-Voided Midstream Performed By: #### C MP, MG, LIPID #### [address] Leukocyte esterase Test strip Ql (U) Negative Normal Negative [facility] Comment on above: Order Comment: Name Collection Type:: Clean-Voided Midstream Performed By: #### C MP, MG, LIPID #### [place] [address] [place] Nitrite,Urine Negative Normal Negative [facility] Comment on above: Order Comment: Name Collection Type:: Clean-Voided Midstream Performed By: #### C MP, MG, LIPID #### [address] Occult Blood,Urine Negative Normal Negative [facility] Comment on above: Order Comment: Name Collection Type:: Clean-Voided Midstream Result Comment: PERF ORMED BY: [place] [address] PATHOLOGIST CARD WRITER HAND PAULA STEWART M.D. Performed By: #### C MP, MG, LIPID #### [address] pH (U) 7.0 [pH] Normal 5.0-9.0 [facility] Comment on above: Order Comment: Name Collection Type:: Clean-Voided Midstream Performed By: #### C MP, MG, LIPID #### [place] [address] [place] Protein,Urine Negative Normal Negative [facility] Comment on above: Order Comment: Name Collection Type:: Clean-Voided Midstream Performed By: #### C MP, MG, LIPID #### [address] Specificy [place],Urine 1.025 Normal 1.001-1.030 [facility] Comment on above: Order Comment: Name Collection Type:: Clean-Voided Midstream Performed By: #### C MP, MG, LIPID #### [address] Urobilinogen,Urine Normal Normal Normal [facility] Comment on above: Order Comment: Name Collection Type:: Clean-Voided Midstream Performed By: #### C MP, MG, LIPID #### [address] Basic Metabolic Panelon 02-0 Anion gap [Moles/Vol] 12.1 mmol/L Normal 6.0-15.0 [facility] Comment on above: Performed By: #### C MP, MG, LIPID #### [address] Calcium [Mass/Vol] 9.2 mg/dL Normal 8.6-10.3 [facility] Comment on above: Performed By: #### C MP, MG, LIPID #### [address] Chloride [Moles/Vol] 104 mmol/L Normal 98-107 [facility] Comment on above: Performed By: #### C MP, MG, LIPID #### [address] CO2 [Moles/Vol] 28.5 mmol/L Normal 21.0-31.0 [facility] Comment on above: Performed By: #### C MP, MG, LIPID #### [address] Creatinine [Mass/Vol] 0.93 mg/dL Normal 0.70-1.30 [facility] Comment on above: Performed By: #### C MP, MG, LIPID #### [address] Creatinine Clr Calc Pharmacy 97.03 Normal [facility] Comment on above: Result Comment: PERF ORMED BY: [place] [address] PATHOLOGIST CARD WRITER HAND PAULA STEWART M.D. Performed By: #### C MP, MG, LIPID #### [facility] [address] [place] [address] [place] GFR/1.73 sq M.predicted MDRD (S/P/Bld) [Vol rate/Area] mL/min/{1.73_m2} Normal [facility] Comment on above: Performed By: #### C MP, MG, LIPID #### [facility] [address] [place] [address] [place] Glucose [Mass/Vol] 183 mg/dL High 70-100 [facility] Comment on above: Result Comment: Romeo Glucose Reference Range is dependent on time and content of last meal. Glucose of more than 200 mg/dL in a nonstressed, ambulatory subject supports the diagnosis of Diabetes Mellitus. ADA recommended reference range Performed By: #### C MP, MG, LIPID #### [facility] [address] [place] [address] [place] Potassium [Moles/Vol] 4.6 mmol/L Normal 3.5-5.1 [facility] Comment on above: Performed By: #### C MP, MG, LIPID #### [facility] [address] [place] [address] [place] Sodium [Moles/Vol] 140 mmol/L Normal 136-145 [facility] Comment on above: Performed By: #### C MP, MG, LIPID #### [facility] [address] [place] [address] [place] Urea nitrogen [Mass/Vol] 19 mg/dL Normal 7-25 [facility] Comment on above: Performed By: #### C MP, MG, LIPID #### [facility] [address] [place] [id number] [place] ECG 12 lead ECGon 10-08-2023 [address] [facility] [place] [address] [place] [address] Electrocardiograph Report Signed Patient: Tom Khan MR#: [id number] : 1955 Acct:[id number] Age/Sex: 68 / M ADM Date: 10/06/23 Loc: Room: 1V4063-8 Type: ADM IN Attending Dr: Myrna Interiano [...] Bautista MD 0 10/08/23 1130 Normal [facility] ECH echo transthoracicon ECH echo transthoracic [facility] [place] [address] [place] [address] Echocardiogram Signed Patient: Tom Khan MR#: [id number] : 1955 Acct:[id number] Age/Sex: 68 / M ADM Date: 10/06/23 Loc: Room: [address] [place] [address] Type: ADM IN Attending Dr: Myrna Interiano MD Ordering Provider: Kourtney Watts DO Date of Service: 10/07/2312/25/499 ECH/ECH echo transthoracic: inf STEMI Copies to: MD Kourtney Montalvo DO BSA: 2.3 m2 BP: 137/89 mmHg HR: 63 Reason For Study: inf STEMI History: Hypertension,PA,PCI Interpretation Summary Moderate concentric left ventricular hypertrophy. [...] mmHg RAP systole: 5.0 mmHg Transcribed By: ROSMERY Performed At: 10/08/23 1151 Signed By: Charan Bautista MD 10/08/23 1248 Normal [facility] Glucose Poct Glucometerson 0 10-08-2023 Glucose [Mass/Vol] 248 mg/dL Normal [facility] Comment on above: Result Comment: Romeo om Glucose Reference Range is dependent on time and content of last meal. Glucose of more than 200 mg/dL in a nonstressed, ambulatory subject supports the diagnosis of Diabetes Mellitus. PERFORMED BY: [place] [address] PATHOLOGIST CARD WRITER HAND PAULA STEWART M.D. Performed By: #### C BC, BMP #### [address] Glucose [Mass/Vol] 163 mg/dL Normal [facility] Comment on above: Result Comment: [place]o Glucose Reference Range is dependent on time and content of last meal. Glucose of more than 200 mg/dL in a nonstressed, ambulatory subject supports the diagnosis of Diabetes Mellitus. PERFORMED BY: [place] [address] PATHOLOGIST CARD WRITER HAND PAULA STEWART M.D. Performed By: #### C MP, MG, LIPID #### [address] Glucose [Mass/Vol] 186 mg/dL Normal [facility] Comment on above: Result Comment: Romeo om Glucose Reference Range is dependent on time and content of last meal. Glucose of more than 200 mg/dL in a nonstressed, ambulatory subject supports the diagnosis of Diabetes Mellitus. PERFORMED BY: [place] [address] PATHOLOGIST CARD WRITER HAND PAULA STEWART M.D. Performed By: #### C MP, MG, LIPID #### [address] Glucose [Mass/Vol] 217 mg/dL Normal [facility] Comment on above: Result Comment: [facility] Glucose Reference Range is dependent on time and content of last meal. Glucose of more than 200 mg/dL in a nonstressed, ambulatory subject supports the diagnosis of Diabetes Mellitus. PERFORMED BY: [place] [address] PATHOLOGIST CARD WRITER HAND PAULA STEWART M.D. Performed By: #### G LUVIDHYA #### Point of Care testing , Complete Blood Count Auto Di ffon 10-07-2023 Basophils (Bld) [#/Vol] 0.0 10*3/uL Normal 0.0-0.2 [facility] Comment on above: Result Comment: PERF ORMED BY: [place] [address] PATHOLOGIST CARD WRITER HAND PAULA STEWART M.D. Performed By: #### C BC, BMP #### [address] Basophils/100 WBC (Bld) 0.4 % Normal . [facility] Comment on above: Performed By: #### C BC, BMP #### [address] Eosinophils (Bld) [#/Vol] 0.2 10*3/uL Normal 0.0-0.45 [facility] Comment on above: Performed By: #### C BC, BMP #### [address] Eosinophils/100 WBC (Bld) 2.5 % Normal . [facility] Comment on above: Performed By: #### C BC, BMP #### [address] Erythrocyte distribution width (RBC) [Ratio] 14.7 % Normal 12.0-14.8 [facility] Comment on above: Performed By: #### C BC, BMP #### [place] [id number] [place] Hematocrit (Bld) [Volume fraction] 37.8 % Low 38.8-50.0 [facility] Comment on above: Performed By: #### C BC, BMP #### [address] Hemoglobin (Bld) [Mass/Vol] 12.7 g/dL Low 13.0-17.0 [facility] Comment on above: Performed By: #### C BC, BMP #### [address] Lymphocytes (Bld) [#/Vol] 1.5 10*3/uL Normal 1.00-4.8 [facility] Comment on above: Performed By: #### C BC, BMP #### [address] Lymphocytes/100 WBC (Bld) 15.7 % Normal . [facility] Comment on above: Performed By: #### C BC, BMP #### [address] MCH (RBC) [Entitic mass] 30.1 pg Normal 27.5-35.2 [facility] Comment on above: Performed By: #### C BC, BMP #### [address] MCV (RBC) [Entitic vol] 89.4 fL Normal 83.5-101 [facility] Comment on above: Performed By: #### C BC, BMP #### [address] Mean Corpuscular HGB Conc 33.7 g/dL Normal 32.5-35.6 [facility] Comment on above: Performed By: #### C BC, BMP #### [address] Monocytes (Bld) [#/Vol] 1.0 10*3/uL High 0.0-0.8 [facility] Comment on above: Performed By: #### C BC, BMP #### [address] [address] [place] Monocytes/100 WBC (Bld) 10.5 % Normal . [facility] Comment on above: Performed By: #### C BC, BMP #### [address] Neutrophils (Bld) [#/Vol] 6.6 10*3/uL Normal 1.8-7.7 [facility] Comment on above: Performed By: #### C BC, BMP #### [address] Neutrophils/100 WBC (Bld) 70.9 % Normal . [facility] Comment on above: Performed By: #### C BC, BMP #### [address] NRBC% 0.0 /100{WBC} Normal 0-0.5 [facility] Comment on above: Performed By: #### C BC, BMP #### [address] Platelet mean volume (Bld) [Entitic vol] 6.6 fL Normal 6.6-10.1 [facility] Comment on above: Performed By: #### C BC, BMP #### [place] [address] [place] Platelets (Bld) [#/Vol] 434 10*3/uL Normal 150-450 [facility] Comment on above: Performed By: #### C BC, BMP #### [place] [address] [place] RBC (Bld) [#/Vol] 4.23 10*6/uL Normal 3.90-5.60 [facility] Comment on above: Performed By: #### C BC, BMP #### [place] [address] [place] WBC (Bld) [#/Vol] 9.4 10*3/uL Normal 4.1-10.5 [facility] Comment on above: Performed By: #### C BC, BMP #### [place] [id number] [place] Comprehensive Metabolic Pane néstor 10-07-2023 Albumin [Mass/Vol] 3.6 g/dL Normal 3.5-5.7 [facility] Comment on above: Performed By: #### C MP, MG, LIPID #### [address] Albumin/Globulin [Mass ratio] 1.1 {ratio} Normal [facility] Comment on above: Performed By: #### C MP, MG, LIPID #### [address] ALP [Catalytic activity/Vol] 48 U/L Normal 34-104 [facility] Comment on above: Performed By: #### C MP, MG, LIPID #### [address] ALT [Catalytic activity/Vol] 24 U/L Normal 7-52 [facility] Comment on above: Performed By: #### C MP, MG, LIPID #### [address] Anion gap [Moles/Vol] 11.3 mmol/L Normal 6.0-15.0 [facility] Comment on above: Performed By: #### C MP, MG, LIPID #### [address] AST [Catalytic activity/Vol] 20 U/L Normal 13-39 [facility] Comment on above: Performed By: #### C MP, MG, LIPID #### [place] [address] [place] Bilirubin [Mass/Vol] 0.3 mg/dL Normal 0.3-1.0 [facility] Comment on above: Performed By: #### C MP, MG, LIPID #### [address] Calcium [Mass/Vol] 9.0 mg/dL Normal 8.6-10.3 [facility] Comment on above: Performed By: #### C MP, MG, LIPID #### [place] [id number] [place] Chloride [Moles/Vol] 105 mmol/L Normal 98-107 [facility] Comment on above: Performed By: #### C MP, MG, LIPID #### [address] CO2 [Moles/Vol] 25.7 mmol/L Normal 21.0-31.0 [facility] Comment on above: Performed By: #### C MP, MG, LIPID #### [address] Creatinine [Mass/Vol] 0.93 mg/dL Normal 0.70-1.30 [facility] Comment on above: Performed By: #### C MP, MG, LIPID #### [address] Creatinine Clr Calc Pharmacy 96.81 Normal [facility] Comment on above: Performed By: #### C MP, MG, LIPID #### [address] GFR/1.73 sq M.predicted MDRD (S/P/Bld) [Vol rate/Area] mL/min/{1.73_m2} Normal [facility] Comment on above: Performed By: #### C MP, MG, LIPID #### [address] Globulin (S) [Mass/Vol] 3.2 g/dL Normal [facility] Comment on above: Performed By: #### C MP, MG, LIPID #### [address] Glucose [Mass/Vol] 181 mg/dL High 70-100 [facility] Comment on above: Result Comment: Romeo Glucose Reference Range is dependent on time and content of last meal. Glucose of more than 200 mg/dL in a nonstressed, ambulatory subject supports the diagnosis of Diabetes Mellitus. ADA recommended reference range Performed By: #### C MP, MG, LIPID #### [address] Potassium [Moles/Vol] 4.0 mmol/L Normal 3.5-5.1 [facility] Comment on above: Performed By: #### C MP, MG, LIPID #### [facility] [address] Protein [Mass/Vol] 6.8 g/dL Normal 6.4-8.9 [facility] Comment on above: Performed By: #### C MP, MG, LIPID #### [facility] [address] Sodium [Moles/Vol] 138 mmol/L Normal 136-145 [facility] Comment on above: Performed By: #### C MP, MG, LIPID #### [facility] [address] Urea nitrogen [Mass/Vol] 15 mg/dL Normal 7-25 [facility] Comment on above: Performed By: #### C MP, MG, LIPID #### [facility] [address] ECG 12 lead ECGon 10-07-2023 ECG [address] [facility] Main [place] [address] [place] [address] Electrocardiograph Report Signed Patient: Tom Khan MR#: [id number] : 1955 Acct:[id number] Age/Sex: 68 / M ADM Date: 10/06/23 Loc: Room: [address] [place] [address] Type: ADM IN Attending Dr: Myrna Interiano [...] Bautista MD 0 10/08/23 1130 Normal [facility] Glucose Poct Glucometerson 0 10-07-2023 Glucose [Mass/Vol] 185 mg/dL Normal [facility] Comment on above: Result Comment: Romeo om Glucose Reference Range is dependent on time and content of last meal. Glucose of more than 200 mg/dL in a nonstressed, ambulatory subject supports the diagnosis of Diabetes Mellitus. PERFORMED BY: [place] [address] PATHOLOGIST CARD WRITER HAND PAULA STEWART M.D. Performed By: #### C MP, MG, LIPID #### [place] [address] [place] Commemt1 Normal [facility] Comment on above: Result Comment: Glu2 : SLIDING SCALE COVERA PERFORMED BY: [place] [address] PATHOLOGIST CARD WRITER HAND PAULA STEWART M.D. Performed By: #### C BC, BMP #### [address] Glucose [Mass/Vol] 142 mg/dL Normal [facility] Comment on above: Result Comment: [place]o Glucose Reference Range is dependent on time and content of last meal. Glucose of more than 200 mg/dL in a nonstressed, ambulatory subject supports the diagnosis of Diabetes Mellitus. Performed By: #### C BC, BMP #### [address] Commemt1 Glu2: Cleaned Meter Normal [facility] Comment on above: Result Comment: PERF ORMED BY: [place] [address] PATHOLOGIST CARD WRITER HAND PAULA STEWART M.D. Performed By: #### C BC, BMP #### [address] Glucose [Mass/Vol] 144 mg/dL Normal [facility] Comment on above: Result Comment: Romeo om Glucose Reference Range is dependent on time and content of last meal. Glucose of more than 200 mg/dL in a nonstressed, ambulatory subject supports the diagnosis of Diabetes Mellitus. Performed By: #### C BC, BMP #### [address] Commemt1 Glu2: Cleaned Meter Normal [facility] Comment on above: Performed By: #### C BC, BMP #### [address] Commemt2 SLIDING SCALE COVERA Normal [facility] Comment on above: Result Comment: PERF ORMED BY: [place] [address] PATHOLOGIST CARD WRITER HAND PAULA STEWART M.D. Performed By: #### C BC, BMP #### [address] Glucose [Mass/Vol] 213 mg/dL Normal [facility] Comment on above: Result Comment: Romeo om Glucose Reference Range is dependent on time and content of last meal. Glucose of more than 200 mg/dL in a nonstressed, ambulatory subject supports the diagnosis of Diabetes Mellitus. Performed By: #### C BC, BMP #### [address] Lipid Panelon 10-07-2023 Cholesterol [Mass/Vol] 198 mg/dL Normal 140-200 [facility] Comment on above: Result Comment: Chol less than 200 mg/dl low risk Chol 201-239 mg/dl borderline risk Chol 240 mg/dl and greater high risk Performed By: #### C MP, MG, LIPID #### [address] Cholesterol in HDL [Mass/Vol] 35 mg/dL Normal 23-92 [facility] Comment on above: Result Comment: HDL CHOL ATP-III CLASSIFICATION Cardiovascular Risk HDL > or equal to 60 mg/dL LOW HDL < 40 mg/dL HIGH Performed By: #### C MP, MG, LIPID #### [address] Cholesterol.total/ Cholesterol in HDL [Mass ratio] 5.7 {ratio} Normal <5.0 [facility] Comment on above: Result Comment: PERF ORMED BY: [place] [address] PATHOLOGIST CARD WRITER HAND PAULA STEWART M.D. Performed By: #### C MP, MG, LIPID #### [address] LDL Cholesterol,Calcul ated 104 mg/dL High 0-100 [facility] Comment on above: Result Comment: LDL ATP III CLASSIFICATION LDL less than 100 mg/dL Optimal LDL 100-129 mg/dL Near or above optimal LDL 130-159 mg/dL Borderline high LDL 160-189 mg/dL High LDL greater than 189 mg/dL Very high Performed By: #### C MP, MG, LIPID #### [address] Triglyceride w/Reflex 297 mg/dL High 0-149 [facility] Comment on above: Result Comment: TRIG ATP III CLASSIFICATION TRIG less than 150 mg/dL Normal TRIG 150-199 mg/dL Borderline high TRIG 200-500 mg/dL High TRIG greater than 500 mg/dL Very high Standard traceable to the Center for Disease Conrtrol and Prevention (CDC) test method. Performed By: #### C MP, MG, LIPID #### [address] VLDL CHOLESTEROL 59 mg/dL Normal [facility] Comment on above: Performed By: #### C MP, MG, LIPID #### [address] Magnesiumon 10-07-2023 Magnesium [Mass/Vol] 2.3 mg/dL Normal 1.9-2.7 [facility] Comment on above: Performed By: #### C MP, MG, LIPID #### [place] [id number] [place] Partial Thromboplastin Timeo n 10-07-2023 aPTT Coag (Bld) [Time] 32.5 s Normal 25.1-36.5 [facility] Comment on above: Result Comment: A matocrit value greater than 55% may lead to inaccurate results in coagulation testing. Patients having hematocrit values >55% require a special collection tube for coagulation studies. Please contact the laboratory at [phone] for redraw instructions. PERFORMED BY: [place] [address] PATHOLOGIST CARD WRITER HAND PAULA STEWART M.D. Performed By: #### C SOBEIDA, BMP #### [address] Prothrombin Time INRon 10-07 INR Coag (PPP) [Relative time] 1.1 {INR} Normal [facility] Comment on above: Result Comment: [...] Performed By: #### C BC, BMP #### [place] [id number] [facility] PT Coag (PPP) [Time] 12.8 s Normal 9.0-12.9 [facility] Comment on above: Result Comment: A matocrit value greater than 55% may lead to inaccurate results in coagulation testing. Patients having hematocrit values >55% require a special collection tube for coagulation studies. Please contact the laboratory at [phone] for redraw instructions. Performed By: #### C BC, BMP #### [place] [id number] [place] Troponin I High Sensitivityo n 10-07-2023 Troponin I High Sensitivity 1108.3 pg/mL Off scale high 0.0-20.0 [facility] Comment on above: Result Comment: Crit ical Result : Called to and read back by: MCKINLEY BRADLEY at: 10/07/2023 06:23:47 by:[id number] PERFORMED BY: [place] [address] PATHOLOGIST CARD WRITER HAND PAULA STEWART M.D. Performed By: #### C BC, BMP #### [address] Basic Metabolic Panelon 02 Anion gap [Moles/Vol] 12.2 mmol/L Normal 6.0-15.0 [facility] Comment on above: Performed By: #### G LULS #### Point of Care testing , Calcium [Mass/Vol] 9.2 mg/dL Normal 8.6-10.3 [facility] Comment on above: Performed By: #### G LULS #### Point of Care testing , Chloride [Moles/Vol] 105 mmol/L Normal 98-107 [facility] Comment on above: Performed By: #### G LULS #### Point of Care testing , CO2 [Moles/Vol] 28.6 mmol/L Normal 21.0-31.0 [facility] Comment on above: Performed By: #### G LULS #### Point of Care testing , Creatinine [Mass/Vol] 0.96 mg/dL Normal 0.70-1.30 [facility] Comment on above: Performed By: #### G LULS #### Point of Care testing , Creatinine Clr Calc Pharmacy 96.76 Normal [facility] Comment on above: Result Comment: PERF ORMED BY: [place] [address] PATHOLOGIST CARD WRITER HAND PAULA STEWART M.D. Performed By: #### G LULS #### Point of Care testing , GFR/1.73 sq M.predicted MDRD (S/P/Bld) [Vol rate/Area] mL/min/{1.73_m2} Normal [facility] Comment on above: Performed By: #### G LULS #### Point of Care testing , Glucose [Mass/Vol] 131 mg/dL High 70-100 [facility] Comment on above: Result Comment: [place]o Glucose Reference Range is dependent on time and content of last meal. Glucose of more than 200 mg/dL in a nonstressed, ambulatory subject supports the diagnosis of Diabetes Mellitus. ADA recommended reference range Performed By: #### G LULS #### Point of Care testing , Potassium [Moles/Vol] 4.8 mmol/L Normal 3.5-5.1 [facility] Comment on above: Performed By: #### G LULS #### Point of Care testing , Sodium [Moles/Vol] 141 mmol/L Normal 136-145 [facility] Comment on above: Performed By: #### G LULS #### Point of Care testing , Urea nitrogen [Mass/Vol] 15 mg/dL Normal 7-25 [facility] Comment on above: Performed By: #### G LULS #### Point of Care testing , Coagulation Profileon 2023 aPTT Coag (Bld) [Time] 30.8 s Normal 25.1-36.5 [facility] Comment on above: Result Comment: A he matocrit value greater than 55% may lead to inaccurate results in coagulation testing. Patients having hematocrit values >55% require a special collection tube for coagulation studies. Please contact the laboratory at [phone] for redraw instructions. PERFORMED BY: [place] [id number] PATHOLOGIST CARD WRITER HAND PAULA STEWART M.D. Performed By: #### C , BMP #### [place] [id number] [facility] INR Coag (PPP) [Relative time] 1.1 {INR} Normal [facility] Comment on above: Result Comment: INR Therapeutic [...] Performed By: #### C BC, BMP #### [address] PT Coag (PPP) [Time] 12.6 s Normal 9.0-12.9 [facility] Comment on above: Result Comment: A he matocrit value greater than 55% may lead to inaccurate results in coagulation testing. Patients having hematocrit values >55% require a special collection tube for coagulation studies. Please contact the laboratory at [phone] for redraw instructions. Performed By: #### C BC, BMP #### [address] Complete Blood Count Auto Di ffon 10-06-2023 Basophils (Bld) [#/Vol] 0.1 10*3/uL Normal 0.0-0.2 [facility] Comment on above: Result Comment: PERF ORMED BY: [place] [address] PATHOLOGIST CARD WRITER HAND PAULA STEWART M.D. Performed By: #### C BC, BMP #### [address] Basophils/100 WBC (Bld) 0.8 % Normal . [facility] Comment on above: Performed By: #### C BC, BMP #### [address] Eosinophils (Bld) [#/Vol] 0.2 10*3/uL Normal 0.0-0.45 [facility] Comment on above: Performed By: #### C BC, BMP #### [address] Eosinophils/100 WBC (Bld) 2.1 % Normal . [facility] Comment on above: Performed By: #### C BC, BMP #### [address] Erythrocyte distribution width (RBC) [Ratio] 14.9 % High 12.0-14.8 [facility] Comment on above: Performed By: #### C BC, BMP #### [address] Hematocrit (Bld) [Volume fraction] 37.5 % Low 38.8-50.0 [facility] Comment on above: Performed By: #### C BC, BMP #### [address] Hemoglobin (Bld) [Mass/Vol] 12.9 g/dL Low 13.0-17.0 [facility] Comment on above: Performed By: #### C BC, BMP #### [address] Lymphocytes (Bld) [#/Vol] 1.2 10*3/uL Normal 1.00-4.8 [facility] Comment on above: Performed By: #### C BC, BMP #### [address] Lymphocytes/100 WBC (Bld) 14.2 % Normal . [facility] Comment on above: Performed By: #### C BC, BMP #### [address] MCH (RBC) [Entitic mass] 30.5 pg Normal 27.5-35.2 [facility] Comment on above: Performed By: #### C BC, BMP #### [address] MCV (RBC) [Entitic vol] 88.8 fL Normal 83.5-101 [facility] Comment on above: Performed By: #### C BC, BMP #### [address] Mean Corpuscular HGB Conc 34.4 g/dL Normal 32.5-35.6 [facility] Comment on above: Performed By: #### C BC, BMP #### [address] Monocytes (Bld) [#/Vol] 0.8 10*3/uL Normal 0.0-0.8 [facility] Comment on above: Performed By: #### C BC, BMP #### [facility] [address] [place] [id number] [place] Monocytes/100 WBC (Bld) 9.0 % Normal . [facility] Comment on above: Performed By: #### C BC, BMP #### [facility] [address] [place] [id number] [place] Neutrophils (Bld) [#/Vol] 6.5 10*3/uL Normal 1.8-7.7 [facility] Comment on above: Performed By: #### C BC, BMP #### [facility] [address] [place] [address] [place] Neutrophils/100 WBC (Bld) 73.9 % Normal . [facility] Comment on above: Performed By: #### C BC, BMP #### [facility] [address] NRBC% 0.1 /100{WBC} Normal 0-0.5 [facility] Comment on above: Performed By: #### C BC, BMP #### [facility] [address] [place] [address] [place] Platelet mean volume (Bld) [Entitic vol] 6.9 fL Normal 6.6-10.1 [facility] Comment on above: Performed By: #### C BC, BMP #### [facility] [address] [place] [id number] [place] Platelets (Bld) [#/Vol] 478 10*3/uL High 150-450 [facility] Comment on above: Performed By: #### C BC, BMP #### [facility] [address] [place] [id number] [place] RBC (Bld) [#/Vol] 4.22 10*6/uL Normal 3.90-5.60 [facility] Comment on above: Performed By: #### C BC, BMP #### [facility] [address] [place] [id number] [place] WBC (Bld) [#/Vol] 8.8 10*3/uL Normal 4.1-10.5 [facility] Comment on above: Performed By: #### C BC, BMP #### [facility] [address] [place] [address] [facility] Basophils (Bld) [#/Vol] 0.1 10*3/uL Normal 0.0-0.2 [facility] Comment on above: Result Comment: PERF ORMED BY: [address] [address] PATHOLOGIST CARD WRITER HAND PAULA STEWART M.D. Performed By: #### G LULS #### Point of Care testing , Basophils/100 WBC (Bld) 0.8 % Normal . [facility] Comment on above: Performed By: #### G LULS #### Point of Care testing , Eosinophils (Bld) [#/Vol] 0.4 10*3/uL Normal 0.0-0.45 [facility] Comment on above: Performed By: #### G LULS #### Point of Care testing , Eosinophils/100 WBC (Bld) 4.9 % Normal . [facility] Comment on above: Performed By: #### G LULS #### Point of Care testing , Erythrocyte distribution width (RBC) [Ratio] 14.8 % Normal 12.0-14.8 [facility] Comment on above: Performed By: #### G LULS #### Point of Care testing , Hematocrit (Bld) [Volume fraction] 37.4 % Low 38.8-50.0 [facility] Comment on above: Performed By: #### G LULS #### Point of Care testing , Hemoglobin (Bld) [Mass/Vol] 12.5 g/dL Low 13.0-17.0 [facility] Comment on above: Performed By: #### G LULS #### Point of Care testing , Lymphocytes (Bld) [#/Vol] 2.1 10*3/uL Normal 1.00-4.8 [facility] Comment on above: Performed By: #### G LULS #### Point of Care testing , Lymphocytes/100 WBC (Bld) 26.7 % Normal . [facility] Comment on above: Performed By: #### G LULS #### Point of Care testing , MCH (RBC) [Entitic mass] 29.8 pg Normal 27.5-35.2 [facility] Comment on above: Performed By: #### G LULS #### Point of Care testing , MCV (RBC) [Entitic vol] 89.5 fL Normal 83.5-101 [facility] Comment on above: Performed By: #### G LULS #### Point of Care testing , Mean Corpuscular HGB Conc 33.3 g/dL Normal 32.5-35.6 [facility] Comment on above: Performed By: #### G LULS #### Point of Care testing , Monocytes (Bld) [#/Vol] 0.8 10*3/uL Normal 0.0-0.8 [facility] Comment on above: Performed By: #### G LULS #### Point of Care testing , Monocytes/100 WBC (Bld) 10.4 % Normal . [facility] Comment on above: Performed By: #### G LULS #### Point of Care testing , Neutrophils (Bld) [#/Vol] 4.4 10*3/uL Normal 1.8-7.7 [facility] Comment on above: Performed By: #### G LULS #### Point of Care testing , Neutrophils/100 WBC (Bld) 57.2 % Normal . [facility] Comment on above: Performed By: #### G LULS #### Point of Care testing , NRBC% 0.2 /100{WBC} Normal 0-0.5 [facility] Comment on above: Performed By: #### G LULS #### Point of Care testing , Platelet mean volume (Bld) [Entitic vol] 6.5 fL Low 6.6-10.1 [facility] Comment on above: Performed By: #### G LULS #### Point of Care testing , Platelets (Bld) [#/Vol] 440 10*3/uL Normal 150-450 [facility] Comment on above: Performed By: #### G LULS #### Point of Care testing , RBC (Bld) [#/Vol] 4.18 10*6/uL Normal 3.90-5.60 [facility] Comment on above: Performed By: #### G LULS #### Point of Care testing , WBC (Bld) [#/Vol] 7.7 10*3/uL Normal 4.1-10.5 [facility] Comment on above: Performed By: #### G LULS #### Point of Care testing , ECG 12 lead ECGon 10-06-2023 ECG 12 lead ECG [place] [id number] Electrocardiograph Report Signed Patient: Tom Khan MR#: [id number] : 1955 Acct:[id number] Age/Sex: 68 / M ADM Date: 10/06/23 Loc: Room: [address] [place] [address] Type: ADM IN Attending Dr: Myrna Interiano [...] axis Inferior infarct , possibly acute ACUTE PA Consider right ventricular involvement in acute inferior infarct Abnormal ECG When compared with ECG of 21-SEP-2023 12:53, (Unconfirmed) Significant changes have occurred Confirmed by CHARAN BAUTISTA MD ([id number]) on 10/08/2023 11:29:54 AM Referred By: Electronically Signed By:CHARAN BAUTISTA MD Transcribed By: MUS Signed By Charan Bautista MD 0 10/08/23 1130 Normal [facility] ECG [address] [facility] Main [place] [id number] Electrocardiograph Report Signed Patient: Tom Khan MR#: [id number] : 1955 Acct:[id number] Age/Sex: 68 / M ADM Date: 09/26/23 Loc: Room: [address] [place] [address] Type: DIS IN Attending Dr: Bobby Portillo [...] consider inferior injury or acute infarct ACUTE PA / STEMI Consider right ventricular involvement in acute inferior infarct Abnormal ECG When compared with ECG of 15-AUG-2018 13:46, ID interval has increased Minimal criteria for Inferior infarct are no longer present ST more elevated in Inferior leads ST now depressed in Anterior leads Confirmed by Alek Damon ([id number]) on 10/06/2023 1:58:41 PM Referred By: Electronically Signed By:Alek Damon REVISED DOCUMENT/10/25/2023/ (corrected prov sig) Transcribed By: MUS Signed By Alek Damon MD 10/26/23 1233 Normal [facility] Glucose Poct Glucometerson 0 10-06-2023 Glucose [Mass/Vol] 150 mg/dL Normal [facility] Comment on above: Result Comment: [facility] Glucose Reference Range is dependent on time and content of last meal. Glucose of more than 200 mg/dL in a nonstressed, ambulatory subject supports the diagnosis of Diabetes Mellitus. PERFORMED BY: [address] [place] [address] PATHOLOGIST CARD WRITER HAND PAULA STEWART M.D. Performed By: #### G LULS #### Point of Care testing , Commemt1 Glu2: Cleaned Meter Normal [facility] Comment on above: Performed By: #### G LULS #### Point of Care testing , Commemt2 SLIDING SCALE COVERA Normal [facility] Comment on above: Result Comment: PERF ORMED BY: [place] [address] PATHOLOGIST CARD WRITER HAND PAULA STEWART M.D. Performed By: #### G LULS #### Point of Care testing , Glucose [Mass/Vol] 117 mg/dL Normal [facility] Comment on above: Result Comment: Romeo om Glucose Reference Range is dependent on time and content of last meal. Glucose of more than 200 mg/dL in a nonstressed, ambulatory subject supports the diagnosis of Diabetes Mellitus. Performed By: #### G LULS #### Point of Care testing , Glucose [Mass/Vol] 151 mg/dL Normal [facility] Comment on above: Result Comment: [place] om Glucose Reference Range is dependent on time and content of last meal. Glucose of more than 200 mg/dL in a nonstressed, ambulatory subject supports the diagnosis of Diabetes Mellitus. PERFORMED BY: [place] [address] PATHOLOGIST CARD WRITER HAND PAULA STEWART M.D. Performed By: #### G LULS #### Point of Care testing , Glucose [Mass/Vol] 149 mg/dL Normal [facility] Comment on above: Result Comment: Romeo om Glucose Reference Range is dependent on time and content of last meal. Glucose of more than 200 mg/dL in a nonstressed, ambulatory subject supports the diagnosis of Diabetes Mellitus. PERFORMED BY: [place] [address] PATHOLOGIST CARD WRITER HAND PAULA STEWART M.D. Performed By: #### C MP, MG, LIPID #### [address] Magnesiumon 10-06-2023 Magnesium [Mass/Vol] 2.0 mg/dL Normal 1.9-2.7 [facility] Comment on above: Order Comment: Comme nt add on to labs from [facility] Result Comment: PERF ORMED BY: [place] [phone] PATHOLOGIST CARD WRITER HAND PAULA STEWART M.D. Performed By: #### G LULS #### Point of Care testing , Troponin I High Sensitivityo n 10-06-2023 Troponin I High Sensitivity 1936.3 pg/mL Off scale high 0.0-20.0 [facility] Comment on above: Result Comment: Crit ical Result : Called to and read back by: MCKINLEY BOLTON at: 10/06/2023 21:45:31 by:DC PERFORMED BY: [phone] PATHOLOGIST CARD WRITER HAND PAULA STEWART M.D. Performed By: #### G LULS #### Point of Care testing , Troponin I High Sensitivity 1686.1 pg/mL Off scale high 0.0-20.0 [facility] Comment on above: Result Comment: Crit ical Result : Called to and read back by: DANIA JONES at: 10/06/2023 19:32:21 by:[id number] PERFORMED BY: [place] [phone] PATHOLOGIST CARD WRITER HAND PAULA STEWART M.D. Performed By: #### C MP, MG, LIPID #### [address] Troponin I High Sensitivity 1484.1 pg/mL Off scale high 0.0-20.0 [facility] Comment on above: Result Comment: Crit ical Result : Called to and read back by: AAKASH MCKEON at: 10/06/2023 18:22:23 by:DC PERFORMED BY: [place] [phone] PATHOLOGIST CARD WRITER HAND PAULA STEWART M.D. Performed By: #### C MP, MG, LIPID #### [address] Troponin I High Sensitivity 584.7 pg/mL Off scale high 0.0-20.0 [facility] Comment on above: Result Comment: Crit ical Result : Called to and read back by: SILVIA SIDDIQUI at: 10/06/2023 15:51:46 by:PILI PERFORMED BY: [place] [address] PATHOLOGIST CARD WRITER HAND PAULA STEWART M.D. Performed By: #### C MP, MG, LIPID #### [place] [id number] [facility] Troponin I High Sensitivity 66.1 pg/mL Off scale high 0.0-20.0 [facility] Comment on above: Result Comment: Crit ical Result : Called to and read back by: JOYCE NARAYAN at: 10/06/2023 12:25:44 by:[id number] PERFORMED BY: [place] [address] PATHOLOGIST CARD WRITER HAND PAULA STEWART M.D. Performed By: #### G LULS #### Point of Care testing , XR chest 1V portableon 10-[address] [facility] Main [place] [address] [place] [address] XRay Report Signed Patient: Tom Khan MR#: [id number] : 1955 Acct:[id number] Age/Sex: 68 / M ADM Date: 09/26/23 Loc: Room: [address] [place] [address] Type: DIS IN Attending Dr: Bobby Portillo [...] Narda Lin M.D.10/06/2023 1:35 PM Dictation Location: [place] [address] Transcribed By: TIM 10/06/23 1335 Dictated By: Narda Lin MD 10/06/23 1333 Signed By: 10/06/23 1335 Normal [facility] Glucose Poct Glucometerson 0 10-05-2023 Glucose [Mass/Vol] 178 mg/dL Normal [facility] Comment on above: Result Comment: [place]o om Glucose Reference Range is dependent on time and content of last meal. Glucose of more than 200 mg/dL in a nonstressed, ambulatory subject supports the diagnosis of Diabetes Mellitus. PERFORMED BY: [place] [address] PATHOLOGIST CARD WRITER HAND PAULA STEWATR M.D. Performed By: #### C MP, MG, LIPID #### [address] Glucose [Mass/Vol] 126 mg/dL Normal [facility] Comment on above: Result Comment: [place] Glucose Reference Range is dependent on time and content of last meal. Glucose of more than 200 mg/dL in a nonstressed, ambulatory subject supports the diagnosis of Diabetes Mellitus. PERFORMED BY: [place] [address] PATHOLOGIST CARD WRITER HAND PAULA STEWART M.D. Performed By: #### G LULS #### Point of Care testing , Glucose [Mass/Vol] 161 mg/dL Normal [facility] Comment on above: Result Comment: [place] om Glucose Reference Range is dependent on time and content of last meal. Glucose of more than 200 mg/dL in a nonstressed, ambulatory subject supports the diagnosis of Diabetes Mellitus. PERFORMED BY: [place] [address] PATHOLOGIST CARD WRITER HAND PAULA STEWART M.D. Performed By: #### G LULS #### Point of Care testing , Glucose [Mass/Vol] 147 mg/dL Normal [facility] Comment on above: Result Comment: [place] Glucose Reference Range is dependent on time and content of last meal. Glucose of more than 200 mg/dL in a nonstressed, ambulatory subject supports the diagnosis of Diabetes Mellitus. PERFORMED BY: [place] [address] PATHOLOGIST CARD WRITER HAND PAULA STEWART M.D. Performed By: #### C MP, MG, LIPID #### [address] Urinalysison 10-05-2023 Appearance (U) Clear Normal Clear [facility] Comment on above: Order Comment: Name Collection Type:: Clean-Voided Midstream Performed By: #### C MP, MG, LIPID #### [address] Bilirubin,Urine Negative Normal Negative [facility] Comment on above: Order Comment: Name Collection Type:: Clean-Voided Midstream Performed By: #### C MP, MG, LIPID #### [address] Color (U) Yellow Normal Yellow [facility] Comment on above: Order Comment: Name Collection Type:: Clean-Voided Midstream Performed By: #### C MP, MG, LIPID #### [address] Glucose Ql (U) >=1000 High Normal [facility] Comment on above: Order Comment: Name Collection Type:: Clean-Voided Midstream Performed By: #### C MP, MG, LIPID #### [address] Ketones Ql (U) Negative Normal Negative [facility] Comment on above: Order Comment: Name Collection Type:: Clean-Voided Midstream Performed By: #### C MP, MG, LIPID #### [address] Leukocyte esterase Test strip Ql (U) Negative Normal Negative [facility] Comment on above: Order Comment: Name Collection Type:: Clean-Voided Midstream Performed By: #### C MP, MG, LIPID #### [place] [address] [place] Nitrite,Urine Negative Normal Negative [facility] Comment on above: Order Comment: Name Collection Type:: Clean-Voided Midstream Performed By: #### C MP, MG, LIPID #### [address] Occult Blood,Urine Negative Normal Negative [facility] Comment on above: Order Comment: Name Collection Type:: Clean-Voided Midstream Result Comment: PERF ORMED BY: [place] [address] PATHOLOGIST CARD WRITER HAND PAULA STEWART M.D. Performed By: #### C MP, MG, LIPID #### [address] pH (U) 7.0 [pH] Normal 5.0-9.0 [facility] Comment on above: Order Comment: Name Collection Type:: Clean-Voided Midstream Performed By: #### C MP, MG, LIPID #### [address] Protein,Urine Negative Normal Negative [facility] Comment on above: Order Comment: Name Collection Type:: Clean-Voided Midstream Performed By: #### C MP, MG, LIPID #### [address] Specificy [place],Urine 1.023 Normal 1.001-1.030 [facility] Comment on above: Order Comment: Name Collection Type:: Clean-Voided Midstream Performed By: #### C MP, MG, LIPID #### [address] Urobilinogen,Urine Normal Normal Normal [facility] Comment on above: Order Comment: Name Collection Type:: Clean-Voided Midstream Performed By: #### C MP, MG, LIPID #### [address] Glucose Poct Glucometerson 0 10-04-2023 Glucose [Mass/Vol] 126 mg/dL Normal [facility] Comment on above: Result Comment: [place] Glucose Reference Range is dependent on time and content of last meal. Glucose of more than 200 mg/dL in a nonstressed, ambulatory subject supports the diagnosis of Diabetes Mellitus. PERFORMED BY: [place] [address] PATHOLOGIST CARD WRITER HAND PAULA STEWART M.D. Performed By: #### C MP, MG, LIPID #### [facility] [address] [place] [address] [place] Glucose [Mass/Vol] 171 mg/dL Normal [facility] Comment on above: Result Comment: [place]o om Glucose Reference Range is dependent on time and content of last meal. Glucose of more than 200 mg/dL in a nonstressed, ambulatory subject supports the diagnosis of Diabetes Mellitus. PERFORMED BY: [place] [address] PATHOLOGIST CARD WRITER HAND PAULA STEWART M.D. Performed By: #### G LULS #### Point of Care testing , Commemt1 Glu2: Cleaned Meter Normal [facility] Comment on above: Result Comment: PERF ORMED BY: [place] [address] PATHOLOGIST CARD WRITER HAND PAULA STEWART M.D. Performed By: #### C BC, BMP #### [place] [id number] [place] Glucose [Mass/Vol] 147 mg/dL Normal [facility] Comment on above: Result Comment: [place] om Glucose Reference Range is dependent on time and content of last meal. Glucose of more than 200 mg/dL in a nonstressed, ambulatory subject supports the diagnosis of Diabetes Mellitus. Performed By: #### C BC, BMP #### [place] [id number] [place] Glucose [Mass/Vol] 174 mg/dL Normal [facility] Comment on above: Result Comment: [place] om Glucose Reference Range is dependent on time and content of last meal. Glucose of more than 200 mg/dL in a nonstressed, ambulatory subject supports the diagnosis of Diabetes Mellitus. PERFORMED BY: [place] [address] PATHOLOGIST CARD WRITER HAND PAULA STEWART M.D. Performed By: #### G LULS #### Point of Care testing , Glucose Poct Glucometerson 0 10-03-2023 Glucose [Mass/Vol] 202 mg/dL Normal [facility] Comment on above: Result Comment: [place] Glucose Reference Range is dependent on time and content of last meal. Glucose of more than 200 mg/dL in a nonstressed, ambulatory subject supports the diagnosis of Diabetes Mellitus. PERFORMED BY: [address] [place] [address] PATHOLOGIST CARD WRITER HAND PAULA STEWART M.D. Performed By: #### G LULS #### Point of Care testing , Glucose [Mass/Vol] 178 mg/dL Normal [facility] Comment on above: Result Comment: [facility] Glucose Reference Range is dependent on time and content of last meal. Glucose of more than 200 mg/dL in a nonstressed, ambulatory subject supports the diagnosis of Diabetes Mellitus. PERFORMED BY: [address] [place] [address] PATHOLOGIST CARD WRITER HAND PAULA STEWART M.D. Performed By: #### G LULS #### Point of Care testing , Glucose [Mass/Vol] 179 mg/dL Normal [facility] Comment on above: Result Comment: [facility] Glucose Reference Range is dependent on time and content of last meal. Glucose of more than 200 mg/dL in a nonstressed, ambulatory subject supports the diagnosis of Diabetes Mellitus. PERFORMED BY: [facility] [address] [place] [address] PATHOLOGIST CARD WRITER HAND PAULA STEWART M.D. Performed By: #### G LULS #### Point of Care testing , Glucose Poct Glucometerson 0 10-02-2023 Glucose [Mass/Vol] 198 mg/dL Normal [facility] Comment on above: Result Comment: [facility] Glucose Reference Range is dependent on time and content of last meal. Glucose of more than 200 mg/dL in a nonstressed, ambulatory subject supports the diagnosis of Diabetes Mellitus. PERFORMED BY: [place] [address] PATHOLOGIST CARD WRITER HAND PAULA STEWART M.D. Performed By: #### G LULS #### Point of Care testing , Glucose [Mass/Vol] 174 mg/dL Normal [facility] Comment on above: Result Comment: [place] om Glucose Reference Range is dependent on time and content of last meal. Glucose of more than 200 mg/dL in a nonstressed, ambulatory subject supports the diagnosis of Diabetes Mellitus. PERFORMED BY: [place] [address] PATHOLOGIST CARD WRITER HAND PAULA STEWART M.D. Performed By: #### G ELLE #### Point of Care testing , Commemt1 Glu2: Cleaned Meter Normal [facility] Comment on above: Result Comment: PERF ORMED BY: [place] [address] PATHOLOGIST CARD WRITER HAND PAULA STEWART M.D. Performed By: #### C BC, BMP #### [address] Glucose [Mass/Vol] 145 mg/dL Normal [facility] Comment on above: Result Comment: [place] om Glucose Reference Range is dependent on time and content of last meal. Glucose of more than 200 mg/dL in a nonstressed, ambulatory subject supports the diagnosis of Diabetes Mellitus. Performed By: #### C BC, BMP #### [address] Glucose [Mass/Vol] 182 mg/dL Normal [facility] Comment on above: Result Comment: [place] om Glucose Reference Range is dependent on time and content of last meal. Glucose of more than 200 mg/dL in a nonstressed, ambulatory subject supports the diagnosis of Diabetes Mellitus. PERFORMED BY: [place] [address] PATHOLOGIST CARD WRITER HAND PAULA STEWART M.D. Performed By: #### C BC, BMP #### [address] Basic Metabolic Panelon 09-04 Anion gap [Moles/Vol] 13.4 mmol/L Normal 6.0-15.0 [facility] Comment on above: Order Comment: pt in therapy Performed By: #### C MP, MG, LIPID #### [facility] [address] Calcium [Mass/Vol] 9.2 mg/dL Normal 8.6-10.3 [facility] Comment on above: Order Comment: pt in therapy Performed By: #### C MP, MG, LIPID #### [facility] [address] [place] [address] [place] Chloride [Moles/Vol] 103 mmol/L Normal 98-107 [facility] Comment on above: Order Comment: pt in therapy Performed By: #### C MP, MG, LIPID #### [facility] [address] CO2 [Moles/Vol] 22.7 mmol/L Normal 21.0-31.0 [facility] Comment on above: Order Comment: pt in therapy Performed By: #### C MP, MG, LIPID #### [facility] [address] [place] [address] [place] Creatinine [Mass/Vol] 0.95 mg/dL Normal 0.70-1.30 [facility] Comment on above: Order Comment: pt in therapy Performed By: #### C MP, MG, LIPID #### [facility] [address] [place] [address] [place] Creatinine Clr Calc Pharmacy 97.65 Normal [facility] Comment on above: Order Comment: pt in therapy Result Comment: PERF ORMED BY: [place] [address] PATHOLOGIST CARD WRITER HAND PAULA STEWART M.D. Performed By: #### C MP, MG, LIPID #### [place] [address] [place] GFR/1.73 sq M.predicted MDRD (S/P/Bld) [Vol rate/Area] mL/min/{1.73_m2} Normal [facility] Comment on above: Order Comment: pt in therapy Performed By: #### C MP, MG, LIPID #### [facility] [address] Glucose [Mass/Vol] 206 mg/dL High 70-100 [facility] Comment on above: Order Comment: pt in therapy Result Comment: [place] Glucose Reference Range is dependent on time and content of last meal. Glucose of more than 200 mg/dL in a nonstressed, ambulatory subject supports the diagnosis of Diabetes Mellitus. ADA recommended reference range Performed By: #### C MP, MG, LIPID #### [address] Potassium [Moles/Vol] 4.1 mmol/L Normal 3.5-5.1 [facility] Comment on above: Order Comment: pt in therapy Performed By: #### C MP, MG, LIPID #### [address] Sodium [Moles/Vol] 135 mmol/L Low 136-145 [facility] Comment on above: Order Comment: pt in therapy Performed By: #### C MP, MG, LIPID #### [address] Urea nitrogen [Mass/Vol] 18 mg/dL Normal 7-25 [facility] Comment on above: Order Comment: pt in therapy Performed By: #### C MP, MG, LIPID #### [address] Complete Blood Count Auto Di ffon 10-01-2023 Basophils (Bld) [#/Vol] 0.0 10*3/uL Normal 0.0-0.2 [facility] Comment on above: Order Comment: pt in therapy Result Comment: PERF ORMED BY: [place] [address] PATHOLOGIST CARD WRITER HAND PAULA STEWART M.D. Performed By: #### C MP, MG, LIPID #### [place] [address] [place] Basophils/100 WBC (Bld) 0.2 % Normal . [facility] Comment on above: Order Comment: pt in therapy Performed By: #### C MP, MG, LIPID #### [address] Eosinophils (Bld) [#/Vol] 0.3 10*3/uL Normal 0.0-0.45 [facility] Comment on above: Order Comment: pt in therapy Performed By: #### C MP, MG, LIPID #### [address] Eosinophils/100 WBC (Bld) 3.3 % Normal . [facility] Comment on above: Order Comment: pt in therapy Performed By: #### C MP, MG, LIPID #### [address] Erythrocyte distribution width (RBC) [Ratio] 14.7 % Normal 12.0-14.8 [facility] Comment on above: Order Comment: pt in therapy Performed By: #### C MP, MG, LIPID #### [address] Hematocrit (Bld) [Volume fraction] 38.8 % Normal 38.8-50.0 [facility] Comment on above: Order Comment: pt in therapy Performed By: #### C MP, MG, LIPID #### [address] Hemoglobin (Bld) [Mass/Vol] 13.1 g/dL Normal 13.0-17.0 [facility] Comment on above: Order Comment: pt in therapy Performed By: #### C MP, MG, LIPID #### [address] Lymphocytes (Bld) [#/Vol] 1.4 10*3/uL Normal 1.00-4.8 [facility] Comment on above: Order Comment: pt in therapy Performed By: #### C MP, MG, LIPID #### [address] Lymphocytes/100 WBC (Bld) 14.3 % Normal . [facility] Comment on above: Order Comment: pt in therapy Performed By: #### C MP, MG, LIPID #### [address] MCH (RBC) [Entitic mass] 30.3 pg Normal 27.5-35.2 [facility] Comment on above: Order Comment: pt in therapy Performed By: #### C MP, MG, LIPID #### [address] MCV (RBC) [Entitic vol] 89.6 fL Normal 83.5-101 [facility] Comment on above: Order Comment: pt in therapy Performed By: #### C MP, MG, LIPID #### [address] Mean Corpuscular HGB Conc 33.8 g/dL Normal 32.5-35.6 [facility] Comment on above: Order Comment: pt in therapy Performed By: #### C MP, MG, LIPID #### [address] Monocytes (Bld) [#/Vol] 0.9 10*3/uL High 0.0-0.8 [facility] Comment on above: Order Comment: pt in therapy Performed By: #### C MP, MG, LIPID #### [address] Monocytes/100 WBC (Bld) 8.7 % Normal . [facility] Comment on above: Order Comment: pt in therapy Performed By: #### C MP, MG, LIPID #### [address] Neutrophils (Bld) [#/Vol] 7.2 10*3/uL Normal 1.8-7.7 [facility] Comment on above: Order Comment: pt in therapy Performed By: #### C MP, MG, LIPID #### [address] Neutrophils/100 WBC (Bld) 73.5 % Normal . [facility] Comment on above: Order Comment: pt in therapy Performed By: #### C MP, MG, LIPID #### [address] NRBC% 0.2 /100{WBC} Normal 0-0.5 [facility] Comment on above: Order Comment: pt in therapy Performed By: #### C MP, MG, LIPID #### [address] Platelet mean volume (Bld) [Entitic vol] 6.8 fL Normal 6.6-10.1 [facility] Comment on above: Order Comment: pt in therapy Performed By: #### C MP, MG, LIPID #### [address] Platelets (Bld) [#/Vol] 442 10*3/uL Normal 150-450 [facility] Comment on above: Order Comment: pt in therapy Performed By: #### C MP, MG, LIPID #### [address] RBC (Bld) [#/Vol] 4.33 10*6/uL Normal 3.90-5.60 [facility] Comment on above: Order Comment: pt in therapy Performed By: #### C MP, MG, LIPID #### [address] WBC (Bld) [#/Vol] 9.9 10*3/uL Normal 4.1-10.5 [facility] Comment on above: Order Comment: pt in therapy Performed By: #### C MP, MG, LIPID #### [address] Glucose Poct Glucometerson 0 10-01-2023 Glucose [Mass/Vol] 216 mg/dL Normal [facility] Comment on above: Result Comment: [place] Glucose Reference Range is dependent on time and content of last meal. Glucose of more than 200 mg/dL in a nonstressed, ambulatory subject supports the diagnosis of Diabetes Mellitus. PERFORMED BY: [place] [address] PATHOLOGIST CARD WRITER HAND PAULA STEWART M.D. Performed By: #### G LULS #### Point of Care testing , Commemt1 Glu2: Cleaned Meter Normal [facility] Comment on above: Result Comment: PERF ORMED BY: [place] [address] PATHOLOGIST CARD WRITER HAND PAULA STEWART M.D. Performed By: #### C MP, MG, LIPID #### [place] [id number] [place] Glucose [Mass/Vol] 169 mg/dL Normal [facility] Comment on above: Result Comment: [place] om Glucose Reference Range is dependent on time and content of last meal. Glucose of more than 200 mg/dL in a nonstressed, ambulatory subject supports the diagnosis of Diabetes Mellitus. Performed By: #### C MP, MG, LIPID #### [place] [address] [place] Commemt1 Glu2: Cleaned Meter Normal [facility] Comment on above: Result Comment: PERF ORMED BY: [place] [address] PATHOLOGIST CARD WRITER HAND PAULA STEWART M.D. Performed By: #### C BC, BMP #### [place] [address] [place] Glucose [Mass/Vol] 135 mg/dL Normal [facility] Comment on above: Result Comment: [place] om Glucose Reference Range is dependent on time and content of last meal. Glucose of more than 200 mg/dL in a nonstressed, ambulatory subject supports the diagnosis of Diabetes Mellitus. Performed By: #### C BC, BMP #### [place] [id number] [place] Glucose [Mass/Vol] 168 mg/dL Normal [facility] Comment on above: Result Comment: [place] om Glucose Reference Range is dependent on time and content of last meal. Glucose of more than 200 mg/dL in a nonstressed, ambulatory subject supports the diagnosis of Diabetes Mellitus. PERFORMED BY: [place] [address] PATHOLOGIST CARD WRITER HAND PAULA STEWART M.D. Performed By: #### C MP, MG, LIPID #### [facility] [address] [place] [address] Glucose Poct Glucometerson 0 09-30-2023 Glucose [Mass/Vol] 254 mg/dL Normal [facility] Comment on above: Result Comment: [place] om Glucose Reference Range is dependent on time and content of last meal. Glucose of more than 200 mg/dL in a nonstressed, ambulatory subject supports the diagnosis of Diabetes Mellitus. PERFORMED BY: [place] [address] PATHOLOGIST CARD WRITER HAND PAULA STEWART M.D. Performed By: #### C MP, MG, LIPID #### [address] Glucose [Mass/Vol] 128 mg/dL Normal [facility] Comment on above: Result Comment: [place] om Glucose Reference Range is dependent on time and content of last meal. Glucose of more than 200 mg/dL in a nonstressed, ambulatory subject supports the diagnosis of Diabetes Mellitus. PERFORMED BY: [place] [address] PATHOLOGIST CARD WRITER HAND PAULA STEWART M.D. Performed By: #### C BC, BMP #### [address] Glucose [Mass/Vol] 187 mg/dL Normal [facility] Comment on above: Result Comment: [place] om Glucose Reference Range is dependent on time and content of last meal. Glucose of more than 200 mg/dL in a nonstressed, ambulatory subject supports the diagnosis of Diabetes Mellitus. PERFORMED BY: [place] [address] PATHOLOGIST CARD WRITER HAND PAULA STEWART M.D. Performed By: #### G LULS #### Point of Care testing , Glucose [Mass/Vol] 152 mg/dL Normal [facility] Comment on above: Result Comment: [place] om Glucose Reference Range is dependent on time and content of last meal. Glucose of more than 200 mg/dL in a nonstressed, ambulatory subject supports the diagnosis of Diabetes Mellitus. PERFORMED BY: [place] [address] PATHOLOGIST CARD WRITER HAND PAULA STEWART M.D. Performed By: #### G ELLE #### Point of Care testing , Basic Metabolic Panelon 09-04 Anion gap [Moles/Vol] 12.2 mmol/L Normal 6.0-15.0 [facility] Comment on above: Performed By: #### C BC, BMP #### [place] [address] [place] Calcium [Mass/Vol] 8.9 mg/dL Normal 8.6-10.3 [facility] Comment on above: Performed By: #### C SOBEIDA, BMP #### [address] Chloride [Moles/Vol] 101 mmol/L Normal 98-107 [facility] Comment on above: Performed By: #### C SOBEIDA, BMP #### [place] [address] [place] CO2 [Moles/Vol] 26.8 mmol/L Normal 21.0-31.0 [facility] Comment on above: Performed By: #### C BC, BMP #### [place] [address] [place] Creatinine [Mass/Vol] 0.92 mg/dL Normal 0.70-1.30 [facility] Comment on above: Performed By: #### C BC, BMP #### [place] [address] [place] Creatinine Clr Calc Pharmacy 100.88 Normal [facility] Comment on above: Result Comment: PERF ORMED BY: [place] [address] PATHOLOGIST CARD WRITER HAND PAULA STEWART M.D. Performed By: #### C BC, BMP #### [place] [address] [place] GFR/1.73 sq M.predicted MDRD (S/P/Bld) [Vol rate/Area] mL/min/{1.73_m2} Normal [facility] Comment on above: Performed By: #### C BC, BMP #### [address] Glucose [Mass/Vol] 233 mg/dL High 70-100 [facility] Comment on above: Result Comment: [place] Glucose Reference Range is dependent on time and content of last meal. Glucose of more than 200 mg/dL in a nonstressed, ambulatory subject supports the diagnosis of Diabetes Mellitus. ADA recommended reference range Performed By: #### C BC, BMP #### [address] Potassium [Moles/Vol] 4.0 mmol/L Normal 3.5-5.1 [facility] Comment on above: Performed By: #### C BC, BMP #### [address] Sodium [Moles/Vol] 136 mmol/L Normal 136-145 [facility] Comment on above: Performed By: #### C BC, BMP #### [address] Urea nitrogen [Mass/Vol] 19 mg/dL Normal 7-25 [facility] Comment on above: Performed By: #### C BC, BMP #### [address] Complete Blood Count Auto Di ffon 09-29-2023 Basophils (Bld) [#/Vol] 0.1 10*3/uL Normal 0.0-0.2 [facility] Comment on above: Result Comment: PERF ORMED BY: [place] [address] PATHOLOGIST CARD WRITER HAND PAULA STEWART M.D. Performed By: #### C BC, BMP #### [place] [address] [place] Basophils/100 WBC (Bld) 0.6 % Normal . [facility] Comment on above: Performed By: #### C BC, BMP #### [address] Eosinophils (Bld) [#/Vol] 0.3 10*3/uL Normal 0.0-0.45 [facility] Comment on above: Performed By: #### C BC, BMP #### [address] Eosinophils/100 WBC (Bld) 2.5 % Normal . [facility] Comment on above: Performed By: #### C BC, BMP #### [address] Erythrocyte distribution width (RBC) [Ratio] 15.1 % High 12.0-14.8 [facility] Comment on above: Performed By: #### C BC, BMP #### [address] Hematocrit (Bld) [Volume fraction] 36.0 % Low 38.8-50.0 [facility] Comment on above: Performed By: #### C BC, BMP #### [address] Hemoglobin (Bld) [Mass/Vol] 12.3 g/dL Low 13.0-17.0 [facility] Comment on above: Performed By: #### C BC, BMP #### [address] Lymphocytes (Bld) [#/Vol] 1.8 10*3/uL Normal 1.00-4.8 [facility] Comment on above: Performed By: #### C BC, BMP #### [place] [address] [place] Lymphocytes/100 WBC (Bld) 17.2 % Normal . [facility] Comment on above: Performed By: #### C BC, BMP #### [address] MCH (RBC) [Entitic mass] 30.6 pg Normal 27.5-35.2 [facility] Comment on above: Performed By: #### C BC, BMP #### [place] [address] MCV (RBC) [Entitic vol] 89.8 fL Normal 83.5-101 [facility] Comment on above: Performed By: #### C BC, BMP #### [address] Mean Corpuscular HGB Conc 34.1 g/dL Normal 32.5-35.6 [facility] Comment on above: Performed By: #### C BC, BMP #### [address] Monocytes (Bld) [#/Vol] 1.0 10*3/uL High 0.0-0.8 [facility] Comment on above: Performed By: #### C BC, BMP #### [address] Monocytes/100 WBC (Bld) 9.6 % Normal . [facility] Comment on above: Performed By: #### C BC, BMP #### [address] Neutrophils (Bld) [#/Vol] 7.3 10*3/uL Normal 1.8-7.7 [facility] Comment on above: Performed By: #### C BC, BMP #### [address] Neutrophils/100 WBC (Bld) 70.1 % Normal . [facility] Comment on above: Performed By: #### C BC, BMP #### [address] NRBC% 0.0 /100{WBC} Normal 0-0.5 [facility] Comment on above: Performed By: #### C BC, BMP #### [address] Platelet mean volume (Bld) [Entitic vol] 7.4 fL Normal 6.6-10.1 [facility] Comment on above: Performed By: #### C BC, BMP #### [address] Platelets (Bld) [#/Vol] 367 10*3/uL Normal 150-450 [facility] Comment on above: Performed By: #### C BC, BMP #### [address] RBC (Bld) [#/Vol] 4.01 10*6/uL Normal 3.90-5.60 [facility] Comment on above: Performed By: #### C BC, BMP #### [address] WBC (Bld) [#/Vol] 10.4 10*3/uL Normal 4.1-10.5 [facility] Comment on above: Performed By: #### C BC, BMP #### [address] Glucose Poct Glucometerson 0 09-29-2023 Glucose [Mass/Vol] 281 mg/dL Normal [facility] Comment on above: Result Comment: [place]o Glucose Reference Range is dependent on time and content of last meal. Glucose of more than 200 mg/dL in a nonstressed, ambulatory subject supports the diagnosis of Diabetes Mellitus. PERFORMED BY: [place] [address] PATHOLOGIST CARD WRITER HAND PAULA STEWART M.D. Performed By: #### C MP, MG, LIPID #### [address] Glucose [Mass/Vol] 183 mg/dL Normal [facility] Comment on above: Result Comment: [place]o Glucose Reference Range is dependent on time and content of last meal. Glucose of more than 200 mg/dL in a nonstressed, ambulatory subject supports the diagnosis of Diabetes Mellitus. PERFORMED BY: [place] [address] PATHOLOGIST CARD WRITER HAND PAULA STEWART M.D. Performed By: #### C MP, MG, LIPID #### [address] Commemt1 Glu2: Cleaned Meter Normal [facility] Comment on above: Result Comment: PERF ORMED BY: [place] [address] PATHOLOGIST CARD WRITER HAND PAULA STEWART M.D. Performed By: #### C MP, MG, LIPID #### [address] Glucose [Mass/Vol] 161 mg/dL Normal [facility] Comment on above: Result Comment: [place]o om Glucose Reference Range is dependent on time and content of last meal. Glucose of more than 200 mg/dL in a nonstressed, ambulatory subject supports the diagnosis of Diabetes Mellitus. Performed By: #### C MP, MG, LIPID #### [address] Glucose [Mass/Vol] 208 mg/dL Normal [facility] Comment on above: Result Comment: [place] om Glucose Reference Range is dependent on time and content of last meal. Glucose of more than 200 mg/dL in a nonstressed, ambulatory subject supports the diagnosis of Diabetes Mellitus. PERFORMED BY: [place] [address] PATHOLOGIST CARD WRITER HAND PAULA STEWART M.D. Performed By: #### C MP, MG, LIPID #### [address] Complete Blood Count Auto Di ffon 09-28-2023 Basophils (Bld) [#/Vol] 0.1 10*3/uL Normal 0.0-0.2 [facility] Comment on above: Result Comment: PERF ORMED BY: [place] [address] PATHOLOGIST CARD WRITER HAND PAULA STEWART M.D. Performed By: #### G LULS #### Point of Care testing , Basophils/100 WBC (Bld) 0.5 % Normal . [facility] Comment on above: Performed By: #### G LULS #### Point of Care testing , Eosinophils (Bld) [#/Vol] 0.2 10*3/uL Normal 0.0-0.45 [facility] Comment on above: Performed By: #### G LULS #### Point of Care testing , Eosinophils/100 WBC (Bld) 1.8 % Normal . [facility] Comment on above: Performed By: #### G LULS #### Point of Care testing , Erythrocyte distribution width (RBC) [Ratio] 15.0 % High 12.0-14.8 [facility] Comment on above: Performed By: #### G LULS #### Point of Care testing , Hematocrit (Bld) [Volume fraction] 34.0 % Low 38.8-50.0 [facility] Comment on above: Performed By: #### G LULS #### Point of Care testing , Hemoglobin (Bld) [Mass/Vol] 11.4 g/dL Low 13.0-17.0 [facility] Comment on above: Performed By: #### G LULS #### Point of Care testing , Lymphocytes (Bld) [#/Vol] 2.2 10*3/uL Normal 1.00-4.8 [facility] Comment on above: Performed By: #### G LULS #### Point of Care testing , Lymphocytes/100 WBC (Bld) 17.7 % Normal . [facility] Comment on above: Performed By: #### G LULS #### Point of Care testing , MCH (RBC) [Entitic mass] 30.2 pg Normal 27.5-35.2 [facility] Comment on above: Performed By: #### G LULS #### Point of Care testing , MCV (RBC) [Entitic vol] 90.2 fL Normal 83.5-101 [facility] Comment on above: Performed By: #### G LULS #### Point of Care testing , Mean Corpuscular HGB Conc 33.5 g/dL Normal 32.5-35.6 [facility] Comment on above: Performed By: #### G LULS #### Point of Care testing , Monocytes (Bld) [#/Vol] 1.5 10*3/uL High 0.0-0.8 [facility] Comment on above: Performed By: #### G LULS #### Point of Care testing , Monocytes/100 WBC (Bld) 11.8 % Normal . [facility] Comment on above: Performed By: #### G LULS #### Point of Care testing , Neutrophils (Bld) [#/Vol] 8.4 10*3/uL High 1.8-7.7 [facility] Comment on above: Performed By: #### G LULS #### Point of Care testing , Neutrophils/100 WBC (Bld) 68.2 % Normal . [facility] Comment on above: Performed By: #### G LULS #### Point of Care testing , NRBC% 0.1 /100{WBC} Normal 0-0.5 [facility] Comment on above: Performed By: #### G LULS #### Point of Care testing , Platelet mean volume (Bld) [Entitic vol] 7.3 fL Normal 6.6-10.1 [facility] Comment on above: Performed By: #### G LULS #### Point of Care testing , Platelets (Bld) [#/Vol] 326 10*3/uL Normal 150-450 [facility] Comment on above: Performed By: #### G LULS #### Point of Care testing , RBC (Bld) [#/Vol] 3.77 10*6/uL Low 3.90-5.60 [facility] Comment on above: Performed By: #### G LULS #### Point of Care testing , WBC (Bld) [#/Vol] 12.3 10*3/uL High 4.1-10.5 [facility] Comment on above: Performed By: #### G LULS #### Point of Care testing , Glucose Poct Glucometerson 0 09-28-2023 Glucose [Mass/Vol] 182 mg/dL Normal [facility] Comment on above: Result Comment: [place]o Glucose Reference Range is dependent on time and content of last meal. Glucose of more than 200 mg/dL in a nonstressed, ambulatory subject supports the diagnosis of Diabetes Mellitus. PERFORMED BY: [facility] [address] [place] [address] PATHOLOGIST CARD WRITER HAND PAULA STEWART M.D. Performed By: #### G LULS #### Point of Care testing , Glucose [Mass/Vol] 257 mg/dL Normal [facility] Comment on above: Result Comment: [place]o om Glucose Reference Range is dependent on time and content of last meal. Glucose of more than 200 mg/dL in a nonstressed, ambulatory subject supports the diagnosis of Diabetes Mellitus. PERFORMED BY: [place] [address] PATHOLOGIST CARD WRITER HAND PAULA STEWART M.D. Performed By: #### G LULS #### Point of Care testing , Commemt1 Glu2: Cleaned Meter Normal [facility] Comment on above: Result Comment: PERF ORMED BY: [place] [address] PATHOLOGIST CARD WRITER HAND PAULA STEWART M.D. Performed By: #### C BC, BMP #### [address] Glucose [Mass/Vol] 175 mg/dL Normal [facility] Comment on above: Result Comment: [place] om Glucose Reference Range is dependent on time and content of last meal. Glucose of more than 200 mg/dL in a nonstressed, ambulatory subject supports the diagnosis of Diabetes Mellitus. Performed By: #### C BC, BMP #### [address] Commemt1 Glu2: Cleaned Meter Normal [facility] Comment on above: Result Comment: PERF ORMED BY: [place] [address] PATHOLOGIST CARD WRITER HAND PAULA STEWATR M.D. Performed By: #### G LULS #### Point of Care testing , Glucose [Mass/Vol] 174 mg/dL Normal [facility] Comment on above: Result Comment: [place]o om Glucose Reference Range is dependent on time and content of last meal. Glucose of more than 200 mg/dL in a nonstressed, ambulatory subject supports the diagnosis of Diabetes Mellitus. Performed By: #### G ELLE #### Point of Care testing , Comprehensive Metabolic Pane néstor 09-27-2023 Albumin [Mass/Vol] 4.2 g/dL Normal 3.5-5.7 [facility] Comment on above: Performed By: #### C MP, MG, LIPID #### [address] Albumin/Globulin [Mass ratio] 1.1 {ratio} Normal [facility] Comment on above: Performed By: #### C MP, MG, LIPID #### [address] ALP [Catalytic activity/Vol] 40 U/L Normal 34-104 [facility] Comment on above: Performed By: #### C MP, MG, LIPID #### [address] ALT [Catalytic activity/Vol] 24 U/L Normal 7-52 [facility] Comment on above: Performed By: #### C MP, MG, LIPID #### [address] Anion gap [Moles/Vol] 14.1 mmol/L Normal 6.0-15.0 [facility] Comment on above: Performed By: #### C MP, MG, LIPID #### [address] AST [Catalytic activity/Vol] 15 U/L Normal 13-39 [facility] Comment on above: Performed By: #### C MP, MG, LIPID #### [place] [address] [place] Bilirubin [Mass/Vol] 0.8 mg/dL Normal 0.3-1.0 [facility] Comment on above: Performed By: #### C MP, MG, LIPID #### [address] Calcium [Mass/Vol] 9.4 mg/dL Normal 8.6-10.3 [facility] Comment on above: Performed By: #### C MP, MG, LIPID #### [address] Chloride [Moles/Vol] 101 mmol/L Normal 98-107 [facility] Comment on above: Performed By: #### C MP, MG, LIPID #### [facility] [address] [place] [address] [place] CO2 [Moles/Vol] 23.9 mmol/L Normal 21.0-31.0 [facility] Comment on above: Performed By: #### C MP, MG, LIPID #### [address] Creatinine [Mass/Vol] 0.88 mg/dL Normal 0.70-1.30 [facility] Comment on above: Performed By: #### C MP, MG, LIPID #### [address] Creatinine Clr Calc Pharmacy 105.98 Normal [facility] Comment on above: Performed By: #### C MP, MG, LIPID #### [place] [address] [place] GFR/1.73 sq M.predicted MDRD (S/P/Bld) [Vol rate/Area] mL/min/{1.73_m2} Normal [facility] Comment on above: Performed By: #### C MP, MG, LIPID #### [address] Globulin (S) [Mass/Vol] 3.7 g/dL Normal [facility] Comment on above: Performed By: #### C MP, MG, LIPID #### [place] [address] [place] Glucose [Mass/Vol] 140 mg/dL High 70-100 [facility] Comment on above: Result Comment: [place]o Glucose Reference Range is dependent on time and content of last meal. Glucose of more than 200 mg/dL in a nonstressed, ambulatory subject supports the diagnosis of Diabetes Mellitus. ADA recommended reference range Performed By: #### C MP, MG, LIPID #### [place] [address] [place] Potassium [Moles/Vol] 4.0 mmol/L Normal 3.5-5.1 [facility] Comment on above: Performed By: #### C MP, MG, LIPID #### [address] Protein [Mass/Vol] 7.9 g/dL Normal 6.4-8.9 [facility] Comment on above: Performed By: #### C MP, MG, LIPID #### [address] Sodium [Moles/Vol] 135 mmol/L Low 136-145 [facility] Comment on above: Performed By: #### C MP, MG, LIPID #### [address] Urea nitrogen [Mass/Vol] 21 mg/dL Normal 7-25 [facility] Comment on above: Performed By: #### C MP, MG, LIPID #### [address] Glucose Poct Glucometerson 0 09-27-2023 Commemt1 Glu2: Cleaned Meter Normal [facility] Comment on above: Result Comment: PERF ORMED BY: [place] [address] PATHOLOGIST CARD WRITER HAND PAULA STEWART M.D. Performed By: #### G LULS #### Point of Care testing , Glucose [Mass/Vol] 261 mg/dL Normal [facility] Comment on above: Result Comment: [place]o om Glucose Reference Range is dependent on time and content of last meal. Glucose of more than 200 mg/dL in a nonstressed, ambulatory subject supports the diagnosis of Diabetes Mellitus. Performed By: #### G LULS #### Point of Care testing , Glucose [Mass/Vol] 147 mg/dL Normal [facility] Comment on above: Result Comment: [place]o om Glucose Reference Range is dependent on time and content of last meal. Glucose of more than 200 mg/dL in a nonstressed, ambulatory subject supports the diagnosis of Diabetes Mellitus. PERFORMED BY: [address] [place] [address] PATHOLOGIST CARD WRITER HAND PAULA STEWART M.D. Performed By: #### C MP, MG, LIPID #### [address] Glucose [Mass/Vol] 153 mg/dL Normal [facility] Comment on above: Result Comment: [place] om Glucose Reference Range is dependent on time and content of last meal. Glucose of more than 200 mg/dL in a nonstressed, ambulatory subject supports the diagnosis of Diabetes Mellitus. PERFORMED BY: [place] [address] PATHOLOGIST CARD WRITER HAND PAULA STEWART M.D. Performed By: #### C MP, MG, LIPID #### [address] Glucose [Mass/Vol] 161 mg/dL Normal [facility] Comment on above: Result Comment: [place]o om Glucose Reference Range is dependent on time and content of last meal. Glucose of more than 200 mg/dL in a nonstressed, ambulatory subject supports the diagnosis of Diabetes Mellitus. PERFORMED BY: [place] [address] PATHOLOGIST CARD WRITER HAND PAULA STEWART M.D. Performed By: #### G LULS #### Point of Care testing , Prealbuminon 09-27-2023 Prealbumin [Mass/Vol] 16.2 mg/dL Low 17.0-34.0 [facility] Comment on above: Result Comment: PERF ORMED BY: [place] [address] PATHOLOGIST CARD WRITER HAND PAULA STEWART M.D. Performed By: #### C MP, MG, LIPID #### [place] [address] [place] Scan and CBCon 09-27-2023 Basophils (Bld) [#/Vol] 0.1 10*3/uL Normal 0.0-0.2 [facility] Comment on above: Performed By: #### C MP, MG, LIPID #### [place] [address] [place] Basophils/100 WBC (Bld) 0.3 % Normal . [facility] Comment on above: Performed By: #### C MP, MG, LIPID #### [address] Eosinophils (Bld) [#/Vol] 0.1 10*3/uL Normal 0.0-0.45 [facility] Comment on above: Performed By: #### C MP, MG, LIPID #### [place] [address] [place] Eosinophils/100 WBC (Bld) 0.7 % Normal . [facility] Comment on above: Performed By: #### C MP, MG, LIPID #### [address] Erythrocyte distribution width (RBC) [Ratio] 14.5 % Normal 12.0-14.8 [facility] Comment on above: Performed By: #### C MP, MG, LIPID #### [address] Hematocrit (Bld) [Volume fraction] 37.1 % Low 38.8-50.0 [facility] Comment on above: Performed By: #### C MP, MG, LIPID #### [address] Hemoglobin (Bld) [Mass/Vol] 12.5 g/dL Low 13.0-17.0 [facility] Comment on above: Performed By: #### C MP, MG, LIPID #### [place] [address] [place] Lymphocytes (Bld) [#/Vol] 1.7 10*3/uL Normal 1.00-4.8 [facility] Comment on above: Performed By: #### C MP, MG, LIPID #### [place] [address] [place] Lymphocytes/100 WBC (Bld) 11.2 % Normal . [facility] Comment on above: Performed By: #### C MP, MG, LIPID #### [address] MCH (RBC) [Entitic mass] 30.1 pg Normal 27.5-35.2 [facility] Comment on above: Performed By: #### C MP, MG, LIPID #### [address] MCV (RBC) [Entitic vol] 89.8 fL Normal 83.5-101 [facility] Comment on above: Performed By: #### C MP, MG, LIPID #### [address] Mean Corpuscular HGB Conc 33.6 g/dL Normal 32.5-35.6 [facility] Comment on above: Performed By: #### C MP, MG, LIPID #### [address] Monocytes (Bld) [#/Vol] 2.0 10*3/uL High 0.0-0.8 [facility] Comment on above: Performed By: #### C MP, MG, LIPID #### [address] Monocytes/100 WBC (Bld) 12.9 % Normal . [facility] Comment on above: Performed By: #### C MP, MG, LIPID #### [address] Neutrophils (Bld) [#/Vol] 11.4 10*3/uL High 1.8-7.7 [facility] Comment on above: Performed By: #### C MP, MG, LIPID #### [address] Neutrophils/100 WBC (Bld) 74.9 % Normal . [facility] Comment on above: Performed By: #### C MP, MG, LIPID #### [address] NRBC% 0.0 /100{WBC} Normal 0-0.5 [facility] Comment on above: Performed By: #### C MP, MG, LIPID #### [address] Platelet Estimate Normal Normal Normal [facility] Comment on above: Performed By: #### C MP, MG, LIPID #### [address] Platelet mean volume (Bld) [Entitic vol] 7.4 fL Normal 6.6-10.1 [facility] Comment on above: Performed By: #### C MP, MG, LIPID #### [address] Platelet Morphology Normal Normal Normal [facility] Comment on above: Result Comment: PERF ORMED BY: [place] [address] PATHOLOGIST CARD WRITER HAND PAULA STEWART M.D. Performed By: #### C MP, MG, LIPID #### [address] Platelets (Bld) [#/Vol] 377 10*3/uL Normal 150-450 [facility] Comment on above: Performed By: #### C MP, MG, LIPID #### [address] RBC (Bld) [#/Vol] 4.14 10*6/uL Normal 3.90-5.60 [facility] Comment on above: Performed By: #### C MP, MG, LIPID #### [address] RBC morphology finding Nom (Bld) Normal Normal Normal [facility] Comment on above: Performed By: #### C MP, MG, LIPID #### [address] WBC (Bld) [#/Vol] 15.2 10*3/uL High 4.1-10.5 [facility] Comment on above: Performed By: #### C MP, MG, LIPID #### [address] Urinalysison 09-27-2023 Appearance (U) Clear Normal Clear [facility] Comment on above: Order Comment: Name Collection Type:: Straight Catheter Performed By: #### G LULS #### Point of Care testing , Bilirubin,Urine Negative Normal Negative [facility] Comment on above: Order Comment: Name Collection Type:: Straight Catheter Performed By: #### G LULS #### Point of Care testing , Color (U) Yellow Normal Yellow [facility] Comment on above: Order Comment: Name Collection Type:: Straight Catheter Performed By: #### G LULS #### Point of Care testing , Glucose Ql (U) >=1000 High Normal [facility] Comment on above: Order Comment: Name Collection Type:: Straight Catheter Performed By: #### G LULS #### Point of Care testing , Ketones Ql (U) Negative Normal Negative [facility] Comment on above: Order Comment: Name Collection Type:: Straight Catheter Performed By: #### G LULS #### Point of Care testing , Leukocyte esterase Test strip Ql (U) Negative Normal Negative [facility] Comment on above: Order Comment: Name Collection Type:: Straight Catheter Performed By: #### G LULS #### Point of Care testing , Nitrite,Urine Negative Normal Negative [facility] Comment on above: Order Comment: Name Collection Type:: Straight Catheter Performed By: #### G LULS #### Point of Care testing , Occult Blood,Urine Negative Normal Negative [facility] Comment on above: Order Comment: Name Collection Type:: Straight Catheter Result Comment: PERF ORMED BY: [facility] [address] [place] [address] PATHOLOGIST CARD WRITER HAND PAULA STEWART M.D. Performed By: #### G LULS #### Point of Care testing , pH (U) 5.5 [pH] Normal 5.0-9.0 [facility] Comment on above: Order Comment: Name Collection Type:: Straight Catheter Performed By: #### G LULS #### Point of Care testing , Protein,Urine Negative Normal Negative [facility] Comment on above: Order Comment: Name Collection Type:: Straight Catheter Performed By: #### G ELLE #### Point of Care testing , Specificy [place],Urine 1.012 Normal 1.001-1.030 [facility] Comment on above: Order Comment: Name Collection Type:: Straight Catheter Performed By: #### G ELLE #### Point of Care testing , Urobilinogen,Urine Normal Normal Normal [facility] Comment on above: Order Comment: Name Collection Type:: Straight Catheter Performed By: #### G ELLE #### Point of Care testing , CBC AND AUTO DIFFon 09-26-19 ABSOLUTE BASOPHIL 0.1 X10E9/L Normal 0.0-0.2 [facility] Comment on above: Performed By: #### C JV, 49274-1, 2776-, 74992-0, PINR #### [facility] ([id number]) [address], [address] [place] [address] ABSOLUTE NEUTROPHIL 7.4 X10E9/L High 1.5-6.6 [facility] Comment on above: Performed By: #### C JV, , 2776-09, 10773-2, PINR #### [facility] ([id number]) [address], [address] [place] [address] Basophils/100 WBC (Bld) 0.6 % Normal [facility] Comment on above: Performed By: #### Jim CARIAS, , 2776-09, 52805-8, PINR #### [facility] ([id number]) [address], [address] [place] [address] Eosinophils (Bld) [#/Vol] 0.2 10*3/uL Normal 0.0-0.4 [facility] Comment on above: Performed By: #### Jim BCA, , 2776-, 80173-5, PINR #### [facility] ([id number]) [address], [address] [place] [address] Eosinophils/100 WBC (Bld) 1.7 % Normal [facility] Comment on above: Performed By: #### C JV, , 2776-09, 67527-3, PINR #### [facility] ([id number]) [address], [address] [place] [address] Erythrocyte distribution width (RBC) [Ratio] 14.8 % Normal 11.5-15.0 [facility] Comment on above: Performed By: #### C BCA, , 2776-09, 77429-6, PINR #### [facility] ([id number]) [address], [address] [place] [address] Hematocrit (Bld) [Volume fraction] 37.3 % Low 39-49 [facility] Comment on above: Performed By: #### Jim CARIAS, , 2776-09, 74647-5, PINR #### [facility] ([id number]) [address], [address] [place] [address] Hemoglobin (Bld) [Mass/Vol] 12.7 g/dL Low 13.0-17.0 [facility] Comment on above: Performed By: #### C BCA, , 2776-09, 27433-9, PINR #### [facility] ([id number]) [address], [address] [place] [address] Lymphocytes (Bld) [#/Vol] 1.4 10*3/uL Normal 1.0-3.5 [facility] Comment on above: Performed By: #### C BCA, , 2776-09, 04244-6, PINR #### [facility] ([id number]) [address], [address] [place] [address] Lymphocytes/100 WBC (Bld) 13.4 % Normal [facility] Comment on above: Performed By: #### Jim BCA, , 2776-09, 05430-0, PINR #### [facility] ([id number]) [address], [address] [place] [address] MCH (RBC) [Entitic mass] 31.0 pg Normal 27-34 [facility] Comment on above: Performed By: #### Jim CARIAS, 61275-5, 2776-09, 40787-3, PINR #### [facility] ([id number]) [address], [address] [place] [address] MCHC (RBC) [Mass/Vol] 34.1 g/dL Normal 32-36 [facility] Comment on above: Performed By: #### Jim CARIAS, , 2776-09, 50079-7, PINR #### [facility] ([id number]) [address], [address] [place] [address] MCV (RBC) [Entitic vol] 91 fL Normal 80-100 [facility] Comment on above: Performed By: #### Jim CARIAS, , 2776-09, 60561-0, PINR #### [facility] ([id number]) [address], [address] [address] Monocytes (Bld) [#/Vol] 1.1 10*3/uL High 0-0.9 [facility] Comment on above: Performed By: #### Jim CARIAS, , 2776-09, 66972-2, PINR #### [facility] ([id number]) [address] [address] [place] [address] Monocytes/100 WBC (Bld) 11.2 % Normal [facility] Comment on above: Performed By: #### Jim CARIAS, , 2776-09, 64816-2, PINR #### [facility] ([id number]) [address], [address] [place] [address] Neutrophils/100 WBC (Bld) 73.1 % Normal [facility] Comment on above: Performed By: #### C JV, 72711-7, 7-1, 96949-7, PINR #### [facility] ([id number]) [address], [address] [place] [address] Platelet mean volume (Bld) [Entitic vol] 7.8 fL Normal 7-12 [facility] Comment on above: Performed By: #### C JV, 42788-2, 2776-1, 15808-8, PINR #### [facility] ([id number]) [address], [address] [place] [address] Platelets (Bld) [#/Vol] 344 10*3/uL Normal 150-450 [facility] Comment on above: Performed By: #### Jim CARIAS, 06590-4, 2776-, 07473-3, PINR #### [facility] ([id number]) [address], [address] [place] [address] RBC COUNT 4.11 X10E12/L Normal 4.10-5.70 [facility] Comment on above: Performed By: #### Jim CARIAS, 19456-5, 2776-, 76605-1, PINR #### [facility] ([id number]) [address], [address] [place] [address] WBC (Bld) [#/Vol] 10.2 10*3/uL Normal 4.0-11.0 [facility] Comment on above: Performed By: #### Jim CARIAS, 94171-7, 2776-1, 22731-5, PINR #### [facility] ([id number]) [address], [address] [place] [address] COMPREHENSIVE METABOLIC PANE Néstor 09-26-2023 Albumin [Mass/Vol] 4.0 g/dL Normal 3.2-5.3 [facility] Comment on above: Performed By: #### C BCA, 93982-6, 2777-1, 92894-4, PINR #### [facility] ([id number]) [address], [address] [place] [address] ALP [Catalytic activity/Vol] 39 U/L Normal 39-130 [facility] Comment on above: Performed By: #### C BCA, 52210-7, 2777-1, 85657-7, PINR #### [facility] ([id number]) [address], [address] [place] [address] ALT [Catalytic activity/Vol] 25 U/L Normal 0-40 [facility] Comment on above: Performed By: #### C BCA, 71545-1, 2777-1, 35332-6, PINR #### [facility] ([id number]) [address], [address] [place] [address] Anion gap [Moles/Vol] 10 mmol/L Normal 5-15 [facility] Comment on above: Performed By: #### C BCA, 91212-2, 2777-1, 93756-5, PINR #### [facility] ([id number]) [address], [address] [place] [address] AST [Catalytic activity/Vol] 19 U/L Normal 0-41 [facility] Comment on above: Performed By: #### C BCA, 78203-9, 7-1, 00099-7, PINR #### [facility] ([id number]) [address], [address] [place] [address] Bilirubin [Mass/Vol] 0.5 mg/dL Normal 0.3-1.2 [facility] Comment on above: Performed By: #### C BCA, 60831-0, 2777-1, 98027-4, PINR #### [facility] ([id number]) [address], [address] [place] [address] Calcium [Mass/Vol] 8.9 mg/dL Normal 8.5-10.5 [facility] Comment on above: Performed By: #### C BCA, 48102-6, 2777-1, 25567-8, PINR #### [facility] ([id number]) [address], [address] [place] [address] Chloride [Moles/Vol] 102 mmol/L Normal 98-109 [facility] Comment on above: Performed By: #### C BCA, 22629-0, 7-1, 61624-9, PINR #### [facility] ([id number]) [address], [facility] [address] [place] [address] CO2 [Moles/Vol] 26 mmol/L Normal 22-32 [facility] Comment on above: Performed By: #### C BCA, 61505-2, 7-1, 54298-0, PINR #### [facility] ([id number]) [address], [address] [place] [address] Creatinine [Mass/Vol] 0.89 mg/dL Normal 0.60-1.30 [facility] Comment on above: Result Comment: METH OD TRACEABLE TO IDMS STANDARD Performed By: #### C BCA, 12387-0, 7-1, 25426-2, PINR #### [facility] ([id number]) [address], [address] [place] [address] eGFR (CKD-EPI) NON-RACE DEPENDENT >90 Normal >59 [facility] Comment on above: Result Comment: Reported eGFR is based on the CKD-EPI 2020 equation that does not use a race coefficient. Performed By: #### C BCA, 54663-7, 7-1, 55083-9, PINR #### [facility] ([id number]) [address], [address] [place] [address] Glucose [Mass/Vol] 142 mg/dL High 65-99 [facility] Comment on above: Performed By: #### C BCA, 96286-6, 2777-1, 47658-9, PINR #### [facility] ([id number]) [address], [address] [place] [address] Potassium [Moles/Vol] 4.1 mmol/L Normal 3.5-5.0 [facility] Comment on above: Performed By: #### C BCA, 55087-5, 7-1, 02337-2, PINR #### [facility] ([id number]) [address], [address] [place] [address] Protein [Mass/Vol] 7.2 g/dL Normal 6.0-8.0 [facility] Comment on above: Performed By: #### Jim BCA, 38544-0, 7-1, 74713-6, PINR #### [facility] ([id number]) [address], [address] [place] [address] Sodium [Moles/Vol] 138 mmol/L Normal 134-146 [facility] Comment on above: Performed By: #### C BCA, 79837-7, 7-1, 92171-2, PINR #### [facility] ([id number]) [address], [address] [place] [address] Urea nitrogen [Mass/Vol] 22 mg/dL Normal 5-27 [facility] Comment on above: Performed By: #### C BCA, 13569-6, 7-1, 25946-9, PINR #### [facility] ([id number]) [address], [address] [place] [address] Glucose Glucometer (BldC) [M ass/Vol]on 09-26-2023 Glucose [Mass/Vol] 224 mg/dL High 65-99 [facility] Glucose [Mass/Vol] 155 mg/dL High 65-99 [facility] Glucose Poct Glucometerson 0 09-26-2023 Glucose [Mass/Vol] 236 mg/dL Normal [facility] Comment on above: Result Comment: Romeo Glucose Reference Range is dependent on time and content of last meal. Glucose of more than 200 mg/dL in a nonstressed, ambulatory subject supports the diagnosis of Diabetes Mellitus. PERFORMED BY: [facility] [address] [id number] PATHOLOGIST CARD WRITER HAND PAULA STEWART M.D. Performed By: #### C BC, BMP #### [facility] [address] [id number] [place] Glucose Glucometer (BldC) [M ass/Vol]on 09-25-2023 Glucose [Mass/Vol] 234 mg/dL High 65-99 [facility] Glucose [Mass/Vol] 149 mg/dL High 65-99 [facility] Glucose [Mass/Vol] 244 mg/dL High 65-99 [facility] Glucose [Mass/Vol] 158 mg/dL High 65-99 [facility] CBC AND AUTO DIFFon 09-24-19 24 ABSOLUTE BASOPHIL 0.0 X10E9/L Normal 0.0-0.2 [facility] Comment on above: Performed By: #### C BCA, , 2776-1, 62464-0, PINR #### [facility] ([id number]) [address], [address] [place] [address] ABSOLUTE NEUTROPHIL 6.6 X10E9/L Normal 1.5-6.6 [facility] Comment on above: Performed By: #### C BCA, 74020-7, 7-1, 20304-3, PINR #### [facility] ([id number]) [address], [address] [place] [address] Basophils/100 WBC (Bld) 0.5 % Normal [facility] Comment on above: Performed By: #### C BCA, 49491-2, 7-1, 34582-7, PINR #### [facility] ([id number]) [address], [address] [place] [address] Eosinophils (Bld) [#/Vol] 0.2 10*3/uL Normal 0.0-0.4 [facility] Comment on above: Performed By: #### C JV, 16236-7, 2776-1, 55020-0, PINR #### [facility] ([id number]) [address], [address] [address] Eosinophils/100 WBC (Bld) 2.2 % Normal [facility] Comment on above: Performed By: #### C JV, 55082-2, 2776-, 26706-0, PINR #### [facility] ([id number]) [address] [address] Erythrocyte distribution width (RBC) [Ratio] 14.8 % Normal 11.5-15.0 [facility] Comment on above: Performed By: #### Jim CARIAS, , 2776-, 15649-5, PINR #### [facility] ([id number]) [address] [address] Hematocrit (Bld) [Volume fraction] 39.5 % Normal 39-49 [facility] Comment on above: Performed By: #### Jim CARIAS, , 2776-09, 48988-0, PINR #### [facility] ([id number]) [address] [address] [place] [address] Hemoglobin (Bld) [Mass/Vol] 13.3 g/dL Normal 13.0-17.0 [facility] Comment on above: Performed By: #### C BCA, , 2776-, 26184-7, PINR #### [facility] ([id number]) [address] [address] Lymphocytes (Bld) [#/Vol] 1.9 10*3/uL Normal 1.0-3.5 [facility] Comment on above: Performed By: #### Jim CARIAS, 93086-9, 2776-, 37752-4, PINR #### [facility] ([id number]) [address], [address] [place] [address] Lymphocytes/100 WBC (Bld) 19.5 % Normal [facility] Comment on above: Performed By: #### Jim CARIAS, 55311-5, 2776-, 73521-8, PINR #### [facility] ([id number]) [address], [address] [place] [address] MCH (RBC) [Entitic mass] 30.7 pg Normal 27-34 [facility] Comment on above: Performed By: #### Jim CARIAS, 20805-7, 2776-, 50574-6, PINR #### [facility] ([id number]) [address], [address] [place] [address] MCHC (RBC) [Mass/Vol] 33.7 g/dL Normal 32-36 [facility] Comment on above: Performed By: #### Jim CARIAS, 71682-0, 2776-, 04521-5, PINR #### [facility] ([id number]) [address], [address] [place] [address] MCV (RBC) [Entitic vol] 91 fL Normal 80-100 [facility] Comment on above: Performed By: #### Jim CARIAS, 15017-8, 2776-, 54004-3, PINR #### [facility] ([id number]) [address], [address] [place] [address] Monocytes (Bld) [#/Vol] 1.0 10*3/uL High 0-0.9 [facility] Comment on above: Performed By: #### Jim CARIAS, 76587-8, 2776-, 93368-4, PINR #### [facility] ([id number]) [address], [address] [place] [address] Monocytes/100 WBC (Bld) 10.2 % Normal [facility] Comment on above: Performed By: #### Jim CARIAS, 49164-3, 2776-1, 53887-2, PINR #### [facility] ([id number]) [address], [address] [place] [address] Neutrophils/100 WBC (Bld) 67.6 % Normal [facility] Comment on above: Performed By: #### Jim CARIAS, 04343-2, 2776-1, 90251-0, PINR #### [facility] ([id number]) [address], [address] [place] [address] Platelet mean volume (Bld) [Entitic vol] 7.8 fL Normal 7-12 [facility] Comment on above: Performed By: #### Jim CARIAS, 90927-2, 2776-, 77641-3, PINR #### [facility] ([id number]) [address], [address] [place] [address] Platelets (Bld) [#/Vol] 288 10*3/uL Normal 150-450 [facility] Comment on above: Performed By: #### Jim CARIAS, 84967-3, 2776-1, 62726-6, PINR #### [facility] ([id number]) [address], [address] [place] [address] RBC COUNT 4.34 X10E12/L Normal 4.10-5.70 [facility] Comment on above: Performed By: #### Jim CARIAS, 64392-8, 2776-, 47342-6, PINR #### [facility] ([id number]) [address], [address] [place] [address] WBC (Bld) [#/Vol] 9.8 10*3/uL Normal 4.0-11.0 [facility] Comment on above: Performed By: #### C BCA, 07250-8, 2777-1, 31158-7, PINR #### [facility] ([id number]) [address], [address] [place] [address] COMPREHENSIVE METABOLIC PANE Néstor 09-24-2023 Albumin [Mass/Vol] 4.2 g/dL Normal 3.2-5.3 [facility] Comment on above: Performed By: #### C BCA, 00046-6, 2777-1, 37147-4, PINR #### [facility] ([id number]) [address], [address] [place] [address] ALP [Catalytic activity/Vol] 39 U/L Normal 39-130 [facility] Comment on above: Performed By: #### C BCA, 08765-8, 2777-1, 67317-8, PINR #### [facility] ([id number]) [address], [address] [place] [address] ALT [Catalytic activity/Vol] 20 U/L Normal 0-40 [facility] Comment on above: Performed By: #### C BCA, 21648-0, 2777-1, 97856-3, PINR #### [facility] ([id number]) [address], [address] [place] [address] Anion gap [Moles/Vol] 13 mmol/L Normal 5-15 [facility] Comment on above: Performed By: #### C BCA, 70047-5, 2777-1, 83955-1, PINR #### [facility] ([id number]) [address], [address] [place] [address] AST [Catalytic activity/Vol] 17 U/L Normal 0-41 [facility] Comment on above: Performed By: #### C BCA, 59594-3, 2777-1, 80076-5, PINR #### [facility] ([id number]) [address], [address] [place] [address] Bilirubin [Mass/Vol] 0.4 mg/dL Normal 0.3-1.2 [facility] Comment on above: Performed By: #### C BCA, 40009-0, 2777-1, 98776-5, PINR #### [facility] ([id number]) [address], [address] [place] [address] Calcium [Mass/Vol] 9.0 mg/dL Normal 8.5-10.5 [facility] Comment on above: Performed By: #### C BCA, 22891-1, 2777-1, 73407-6, PINR #### [facility] ([id number]) [address], [address] [place] [address] Chloride [Moles/Vol] 103 mmol/L Normal 98-109 [facility] Comment on above: Performed By: #### C BCA, 06660-2, 7-1, 77653-4, PINR #### [facility] ([id number]) [address], [address] [place] [address] CO2 [Moles/Vol] 25 mmol/L Normal 22-32 [facility] Comment on above: Performed By: #### C BCA, 93079-3, 7-1, 83706-7, PINR #### [facility] ([id number]) [address], [address] [place] [address] Creatinine [Mass/Vol] 0.82 mg/dL Normal 0.60-1.30 [facility] Comment on above: Result Comment: METH OD TRACEABLE TO IDMS STANDARD Performed By: #### C BCA, 08486-7, 7-1, 70298-4, PINR #### [facility] ([id number]) [address], [address] [place] [address] eGFR (CKD-EPI) NON-RACE DEPENDENT >90 Normal >59 [facility] Comment on above: Result Comment: Reported eGFR is based on the CKD-EPI 2020 equation that does not use a race coefficient. Performed By: #### C BCA, 02573-9, 2777-1, 18060-6, PINR #### [facility] ([id number]) [address], [address] [place] [address] Glucose [Mass/Vol] 175 mg/dL High 65-99 [facility] Comment on above: Performed By: #### C BCA, 62885-8, 2776-1, 82717-9, PINR #### [facility] ([id number]) [address], [address] [place] [address] Potassium [Moles/Vol] 4.4 mmol/L Normal 3.5-5.0 [facility] Comment on above: Performed By: #### C BCA, 09689-0, 2776-1, 28001-2, PINR #### [facility] ([id number]) [address], [address] [place] [address] Protein [Mass/Vol] 7.2 g/dL Normal 6.0-8.0 [facility] Comment on above: Performed By: #### C BCA, 45602-4, 2776-1, 14152-2, PINR #### [facility] ([id number]) [address] [place] [address] Sodium [Moles/Vol] 141 mmol/L Normal 134-146 [facility] Comment on above: Performed By: #### C BCA, 85583-9, 2777-1, 43244-7, PINR #### [facility] ([id number]) [address], [address] [place] [address] Urea nitrogen [Mass/Vol] 24 mg/dL Normal 5-27 [facility] Comment on above: Performed By: #### C BCA, 57922-9, 2777-1, 64423-0, PINR #### [facility] ([id number]) [address] [place] [address] Glucose Glucometer (BldC) [M ass/Vol]on 09-24-2023 Glucose [Mass/Vol] 175 mg/dL High 65-99 [facility] Glucose [Mass/Vol] 141 mg/dL High 65-99 [facility] Glucose [Mass/Vol] 216 mg/dL High 65-99 [facility] Glucose [Mass/Vol] 188 mg/dL High 65-99 [facility] CBC AND AUTO DIFFon 09-23-19 ABSOLUTE BASOPHIL 0.0 X10E9/L Normal 0.0-0.2 [facility] Comment on above: Performed By: #### C JV, 29689-2, 2776-1, 71580-1, PINR #### [facility] ([id number]) [address], [address] [place] [address] ABSOLUTE NEUTROPHIL 6.7 X10E9/L High 1.5-6.6 [facility] Comment on above: Performed By: #### Jim CARIAS, 76108-9, 2776-, 94244-3, PINR #### [facility] ([id number]) [address], [address] [place] [address] Basophils/100 WBC (Bld) 0.2 % Normal [facility] Comment on above: Performed By: #### Jim BCA, , 2776-, 92057-3, PINR #### [facility] ([id number]) [address], [address] [place] [address] Eosinophils (Bld) [#/Vol] 0.2 10*3/uL Normal 0.0-0.4 [facility] Comment on above: Performed By: #### Jim BCA, 19130-8, 2776-1, 13309-9, PINR #### [facility] ([id number]) [address], [address] [place] [address] Eosinophils/100 WBC (Bld) 2.2 % Normal [facility] Comment on above: Performed By: #### Jim CARIAS, 72050-5, 2776-, 89647-7, PINR #### [facility] ([id number]) [address], [address] [place] [address] Erythrocyte distribution width (RBC) [Ratio] 15.0 % Normal 11.5-15.0 [facility] Comment on above: Performed By: #### C JV, 55108-8, 2776-, 45596-8, PINR #### [facility] ([id number]) [address], [address] [place] [address] Hematocrit (Bld) [Volume fraction] 37.8 % Low 39-49 [facility] Comment on above: Performed By: #### Jim CARIAS, 81326-2, 2776-09, 68118-8, PINR #### [facility] ([id number]) [address], [address] [place] [address] Hemoglobin (Bld) [Mass/Vol] 13.0 g/dL Normal 13.0-17.0 [facility] Comment on above: Performed By: #### C JV, 25771-0, 2776-, 80860-3, PINR #### [facility] ([id number]) [address], [address] [place] [address] Lymphocytes (Bld) [#/Vol] 1.9 10*3/uL Normal 1.0-3.5 [facility] Comment on above: Performed By: #### Jim CARIAS, 82879-9, 2776-, 45634-4, PINR #### [facility] ([id number]) [address], [address] [place] [address] Lymphocytes/100 WBC (Bld) 18.9 % Normal [facility] Comment on above: Performed By: #### C BCA, 90647-3, 7-1, 71292-5, PINR #### [facility] ([id number]) [address], [address] [place] [address] MCH (RBC) [Entitic mass] 31.0 pg Normal 27-34 [facility] Comment on above: Performed By: #### Jim BCA, 02873-2, 2776-, 97814-1, PINR #### [facility] ([id number]) [address], [address] [place] [address] MCHC (RBC) [Mass/Vol] 34.2 g/dL Normal 32-36 [facility] Comment on above: Performed By: #### Jim BCA, 12173-1, 2776-, 45559-2, PINR #### [facility] ([id number]) [address], [address] [place] [address] MCV (RBC) [Entitic vol] 91 fL Normal 80-100 [facility] Comment on above: Performed By: #### Jim BCA, 94195-4, 2776-, 21502-4, PINR #### [facility] ([id number]) [address], [address] [place] [address] Monocytes (Bld) [#/Vol] 1.4 10*3/uL High 0-0.9 [facility] Comment on above: Performed By: #### C BCA, 10310-8, 2776-, 17056-7, PINR #### [facility] ([id number]) [address], [address] [place] [address] Monocytes/100 WBC (Bld) 13.2 % Normal [facility] Comment on above: Performed By: #### Jim BCA, 81771-5, 7-1, 65264-6, PINR #### [facility] ([id number]) [address], [address] [place] [address] Neutrophils/100 WBC (Bld) 65.5 % Normal [facility] Comment on above: Performed By: #### Jim CARIAS, 22396-2, 7-1, 28669-7, PINR #### [facility] ([id number]) [address], [address] [place] [address] Platelet mean volume (Bld) [Entitic vol] 7.7 fL Normal 7-12 [facility] Comment on above: Performed By: #### Jim CARIAS, 81882-9, 7-1, 49992-2, PINR #### [facility] ([id number]) [address], [address] [place] [address] Platelets (Bld) [#/Vol] 236 10*3/uL Normal 150-450 [facility] Comment on above: Performed By: #### Jim CARIAS, 38878-0, 2776-1, 08942-6, PINR #### [facility] ([id number]) [address], [address] [place] [address] RBC COUNT 4.17 X10E12/L Normal 4.10-5.70 [facility] Comment on above: Performed By: #### Jim CARIAS, 94317-3, 2776-1, 16021-2, PINR #### [facility] ([id number]) [address], [address] [place] [address] WBC (Bld) [#/Vol] 10.3 10*3/uL Normal 4.0-11.0 [facility] Comment on above: Performed By: #### Jim CARIAS, 60058-3, 2776-1, 82296-5, PINR #### [facility] ([id number]) [address], [address] [place] [address] COMPREHENSIVE METABOLIC PANE Néstor 2023 Albumin [Mass/Vol] 3.8 g/dL Normal 3.2-5.3 [facility] Comment on above: Performed By: #### C BCA, 40681-3, 2777-1, 55294-0, PINR #### [facility] ([id number]) [address], [address] [place] [address] ALP [Catalytic activity/Vol] 34 U/L Low 39-130 [facility] Comment on above: Performed By: #### C BCA, 17295-8, 7-1, 77578-6, PINR #### [facility] ([id number]) [address], [address] [place] [address] ALT [Catalytic activity/Vol] 24 U/L Normal 0-40 [facility] Comment on above: Performed By: #### C BCA, 40600-3, 2777-1, 01244-8, PINR #### [facility] ([id number]) [address], [address] [place] [address] Anion gap [Moles/Vol] 9 mmol/L Normal 5-15 [facility] Comment on above: Performed By: #### C BCA, 57823-9, 2777-1, 66475-1, PINR #### [facility] ([id number]) [address], [address] [place] [address] AST [Catalytic activity/Vol] 13 U/L Normal 0-41 [facility] Comment on above: Performed By: #### C BCA, 24957-5, 2777-1, 10423-4, PINR #### [facility] ([id number]) [address], [address] [place] [address] Bilirubin [Mass/Vol] 0.4 mg/dL Normal 0.3-1.2 [facility] Comment on above: Performed By: #### C BCA, 55981-7, 2777-1, 91997-5, PINR #### [facility] ([id number]) [address], [address] [place] [address] Calcium [Mass/Vol] 8.5 mg/dL Normal 8.5-10.5 [facility] Comment on above: Performed By: #### C BCA, 17626-9, 7-1, 60297-1, PINR #### [facility] ([id number]) [address], [address] [place] [address] Chloride [Moles/Vol] 105 mmol/L Normal 98-109 [facility] Comment on above: Performed By: #### C BCA, 48014-4, 7-1, 41596-2, PINR #### [facility] ([id number]) [address], [address] [place] [address] CO2 [Moles/Vol] 28 mmol/L Normal 22-32 [facility] Comment on above: Performed By: #### C BCA, 41349-6, 2776-1, 36667-6, PINR #### [facility] ([id number]) [address], [address] [place] [address] Creatinine [Mass/Vol] 1.01 mg/dL Normal 0.60-1.30 [facility] Comment on above: Result Comment: METH OD TRACEABLE TO IDMS STANDARD Performed By: #### C BCA, 14323-0, 7-1, 05005-5, PINR #### [facility] ([id number]) [address], [address] [place] [address] GFR/1.73 sq M.predicted among non-blacks MDRD (S/P/Bld) [Vol rate/Area] 82 mL/min/{1.73_m2} Normal >59 [facility] Comment on above: Result Comment: Reported eGFR is based on the CKD-EPI 2020 equation that does not use a race coefficient. Performed By: #### C BCA, 06169-0, 2777-1, 34584-6, PINR #### [facility] ([id number]) [address], [address] [place] [address] Glucose [Mass/Vol] 158 mg/dL High 65-99 [facility] Comment on above: Performed By: #### C BCA, 80849-5, 2777-1, 79954-9, PINR #### [facility] ([id number]) [address], [address] [place] [address] Potassium [Moles/Vol] 3.9 mmol/L Normal 3.5-5.0 [facility] Comment on above: Performed By: #### C BCA, 73159-7, 2777-1, 20737-9, PINR #### [facility] ([id number]) [address], [address] [place] [address] Protein [Mass/Vol] 6.5 g/dL Normal 6.0-8.0 [facility] Comment on above: Performed By: #### C BCA, 56962-4, 7-1, 94135-0, PINR #### [facility] ([id number]) [address], [address] [place] [address] Sodium [Moles/Vol] 142 mmol/L Normal 134-146 [facility] Comment on above: Performed By: #### C BCA, 36386-4, 2777-1, 96366-9, PINR #### [facility] ([id number]) [address], [address] [place] [address] Urea nitrogen [Mass/Vol] 29 mg/dL High 5-27 [facility] Comment on above: Performed By: #### C BCA, 35854-2, 2777-1, 01788-4, PINR #### [facility] ([id number]) [address], [address] [place] [address] Glucose Glucometer (BldC) [M ass/Vol]on 2023 Glucose [Mass/Vol] 174 mg/dL High 65-99 [facility] Glucose [Mass/Vol] 203 mg/dL High 65-99 [facility] Glucose [Mass/Vol] 234 mg/dL High 65-99 [facility] Glucose [Mass/Vol] 266 mg/dL High 65-99 [facility] Glucose [Mass/Vol] 281 mg/dL High 65-99 [facility] CBC AND AUTO DIFFon 09-22-19 ABSOLUTE BASOPHIL 0.0 X10E9/L Normal 0.0-0.2 [facility] Comment on above: Performed By: #### Jim CARIAS, 93095-0, 2776-1, 21764-6, PINR #### [facility] ([id number]) [address], [address] [place] [address] ABSOLUTE NEUTROPHIL 10.7 X10E9/L High 1.5-6.6 [facility] Comment on above: Performed By: #### Jim CARIAS, , 2776-09, 48862-0, PINR #### [facility] ([id number]) [address], [address] [place] [address] Basophils/100 WBC (Bld) 0.1 % Normal [facility] Comment on above: Performed By: #### Jim CARIAS, , 2776-09, 63994-3, PINR #### [facility] ([id number]) [address], [address] [place] [address] Eosinophils (Bld) [#/Vol] 0.0 10*3/uL Normal 0.0-0.4 [facility] Comment on above: Performed By: #### Jim CARIAS, , 2776-, 27709-1, PINR #### [facility] ([id number]) [address], [address] [place] [address] Eosinophils/100 WBC (Bld) 0.1 % Normal [facility] Comment on above: Performed By: #### Jim CARIAS, , 2776-, 22951-5, PINR #### [facility] ([id number]) [address], [address] [place] [address] Erythrocyte distribution width (RBC) [Ratio] 15.0 % Normal 11.5-15.0 [facility] Comment on above: Performed By: #### C JV, , 2776-, 32796-3, PINR #### [facility] ([id number]) [address], [address] [place] [address] Hematocrit (Bld) [Volume fraction] 37.9 % Low 39-49 [facility] Comment on above: Performed By: #### C JV, , 2776-, 37559-0, PINR #### [facility] ([id number]) [address], [facility] [address] [place] [address] Hemoglobin (Bld) [Mass/Vol] 12.8 g/dL Low 13.0-17.0 [facility] Comment on above: Performed By: #### C JV, , 2776-09, 96447-8, PINR #### [facility] ([id number]) [address], [facility] [address] [place] [address] Lymphocytes (Bld) [#/Vol] 0.7 10*3/uL Low 1.0-3.5 [facility] Comment on above: Performed By: #### C BCA, , 2776-, 60784-0, PINR #### [facility] ([id number]) [address], [facility] [address] [place] [address] Lymphocytes/100 WBC (Bld) 5.5 % Normal [facility] Comment on above: Performed By: #### C BCA, , 2776-, 95495-9, PINR #### [facility] ([id number]) [address], [address] [place] [address] MCH (RBC) [Entitic mass] 30.6 pg Normal 27-34 [facility] Comment on above: Performed By: #### Jim CARIAS, 62064-0, 2776-09, 19225-7, PINR #### [facility] ([id number]) [address], [address] [place] [address] MCHC (RBC) [Mass/Vol] 33.8 g/dL Normal 32-36 [facility] Comment on above: Performed By: #### Jim CARIAS, 95072-0, 2776-09, 64114-8, PINR #### [facility] ([id number]) [address], [address] [place] [address] MCV (RBC) [Entitic vol] 91 fL Normal 80-100 [facility] Comment on above: Performed By: #### Jim CARIAS, , 2776-09, 77514-7, PINR #### [facility] ([id number]) [address], [address] [place] [address] Monocytes (Bld) [#/Vol] 0.6 10*3/uL Normal 0-0.9 [facility] Comment on above: Performed By: #### Jim CARIAS, , 2776-09, 15798-7, PINR #### [facility] ([id number]) [address], [address] [place] [address] Monocytes/100 WBC (Bld) 4.8 % Normal [facility] Comment on above: Performed By: #### Jim CARIAS, , 2776-09, 65537-1, PINR #### [facility] ([id number]) [address], [address] [place] [address] Neutrophils/100 WBC (Bld) 89.5 % Normal [facility] Comment on above: Performed By: #### Jim CARIAS, , 2776-09, 05353-4, PINR #### [facility] ([id number]) [address], [address] [place] [address] Platelet mean volume (Bld) [Entitic vol] 7.8 fL Normal 7-12 [facility] Comment on above: Performed By: #### Jim BCA, 65249-5, 2776-1, 00042-6, PINR #### [facility] ([id number]) [address], [address] [place] [address] Platelets (Bld) [#/Vol] 288 10*3/uL Normal 150-450 [facility] Comment on above: Performed By: #### Jim CARIAS, 62395-5, 2776-, 56729-0, PINR #### [facility] ([id number]) [address], [address] [place] [address] RBC COUNT 4.18 X10E12/L Normal 4.10-5.70 [facility] Comment on above: Performed By: #### Jim BCA, 85687-8, 2776-, 48207-0, PINR #### [facility] ([id number]) [address], [address] [place] [address] WBC (Bld) [#/Vol] 12.0 10*3/uL High 4.0-11.0 [facility] Comment on above: Performed By: #### Jim BCA, 83687-7, 2776-, 39535-8, PINR #### [facility] ([id number]) [address], [address] [place] [address] COMPREHENSIVE METABOLIC PANE Néstor 09-22-2023 Albumin [Mass/Vol] 4.0 g/dL Normal 3.2-5.3 [facility] Comment on above: Performed By: #### Jim BCA, 01691-4, 2776-, 76579-5, PINR #### [facility] ([id number]) [address], [address] [place] [address] ALP [Catalytic activity/Vol] 33 U/L Low 39-130 [facility] Comment on above: Performed By: #### C BCA, 61239-0, 2777-1, 08658-9, PINR #### [facility] ([id number]) [address], [address] [place] [address] ALT [Catalytic activity/Vol] 33 U/L Normal 0-40 [facility] Comment on above: Performed By: #### C BCA, 69460-6, 2777-1, 38549-0, PINR #### [facility] ([id number]) [address], [address] [place] [address] Anion gap [Moles/Vol] 11 mmol/L Normal 5-15 [facility] Comment on above: Performed By: #### C BCA, 29244-8, 7-1, 13744-4, PINR #### [facility] ([id number]) [address], [address] [place] [address] AST [Catalytic activity/Vol] 22 U/L Normal 0-41 [facility] Comment on above: Performed By: #### C BCA, 06980-7, 2777-1, 49216-9, PINR #### [facility] ([id number]) [address], [address] [place] [address] Bilirubin [Mass/Vol] 0.3 mg/dL Normal 0.3-1.2 [facility] Comment on above: Performed By: #### C BCA, 02987-1, 2777-1, 74125-5, PINR #### [facility] ([id number]) [address], [address] [place] [address] Calcium [Mass/Vol] 8.7 mg/dL Normal 8.5-10.5 [facility] Comment on above: Performed By: #### C BCA, 73640-0, 2776-1, 78185-3, PINR #### [facility] ([id number]) [address], [address] [place] [address] Chloride [Moles/Vol] 105 mmol/L Normal 98-109 [facility] Comment on above: Performed By: #### C BCA, , 2776-, 96138-3, PINR #### [facility] ([id number]) [address], [address] [place] [address] CO2 [Moles/Vol] 24 mmol/L Normal 22-32 [facility] Comment on above: Performed By: #### C BCA, , 2776-, 08372-4, PINR #### [facility] ([id number]) [address], [address] [place] [address] Creatinine [Mass/Vol] 1.05 mg/dL Normal 0.60-1.30 [facility] Comment on above: Result Comment: METH OD TRACEABLE TO IDMS STANDARD Performed By: #### C BCA, , 2776-, 67569-0, PINR #### [facility] ([id number]) [address], [address] [place] [address] GFR/1.73 sq M.predicted among non-blacks MDRD (S/P/Bld) [Vol rate/Area] 79 mL/min/{1.73_m2} Normal >59 [facility] Comment on above: Result Comment: Reported eGFR is based on the CKD-EPI 2020 equation that does not use a race coefficient. Performed By: #### C BCA, , 2776-, 83577-4, PINR #### [facility] ([id number]) [address], [address] [place] [address] Glucose [Mass/Vol] 303 mg/dL High 65-99 [facility] Comment on above: Performed By: #### C BCA, 27449-5, 7-1, 42093-0, PINR #### [facility] ([id number]) [address], [address] [place] [address] Potassium [Moles/Vol] 4.5 mmol/L Normal 3.5-5.0 [facility] Comment on above: Performed By: #### C BCA, 99123-6, 2776-1, 88189-6, PINR #### [facility] ([id number]) [address], [address] [place] [address] Protein [Mass/Vol] 6.8 g/dL Normal 6.0-8.0 [facility] Comment on above: Performed By: #### C BCA, 18377-9, 7-1, 44192-9, PINR #### [facility] ([id number]) [address], [address] [place] [address] Sodium [Moles/Vol] 140 mmol/L Normal 134-146 [facility] Comment on above: Performed By: #### C BCA, 36686-4, 2776-1, 96445-7, PINR #### [facility] ([id number]) [address], [address] [place] [address] Urea nitrogen [Mass/Vol] 28 mg/dL High 5-27 [facility] Comment on above: Performed By: #### C BCA, , 2776-1, 05933-6, PINR #### [facility] ([id number]) [address], [address] [place] [address] Glucose Glucometer (dC) [M ass/Vol]on 09-22-2023 Glucose [Mass/Vol] 261 mg/dL High 65-99 [facility] Glucose [Mass/Vol] 239 mg/dL High 65-99 [facility] Glucose [Mass/Vol] 361 mg/dL High 65-99 [facility] Glucose [Mass/Vol] 309 mg/dL High 65-99 [facility] Glucose [Mass/Vol] 322 mg/dL High 65-99 [facility] XR SPINE LUMBAR 2 OR 3 VWSon [...] Stafford MD on 09/22/2023 4:52 PM Normal [facility] CBC AND AUTO DIFFon 09-21-19 ABSOLUTE BASOPHIL 0.0 X10E9/L Normal 0.0-0.2 [facility] Comment on above: Performed By: #### C JV, 85096-8, 2777-1, 37328-4, PINR #### [facility] ([id number]) [address], [address] [place] [address] ABSOLUTE NEUTROPHIL 5.9 X10E9/L Normal 1.5-6.6 [facility] Comment on above: Performed By: #### C JV, 86757-7, 2777-1, 65979-6, PINR #### [facility] ([id number]) [address], [address] [place] [address] Basophils/100 WBC (Bld) 0.2 % Normal [facility] Comment on above: Performed By: #### C BCA, 90514-5, 2777-1, 26495-1, PINR #### [facility] ([id number]) [address], [address] [place] [address] Eosinophils (Bld) [#/Vol] 0.2 10*3/uL Normal 0.0-0.4 [facility] Comment on above: Performed By: #### C JV, , 2776-, 81432-7, PINR #### [facility] ([id number]) [address], [address] [place] [address] Eosinophils/100 WBC (Bld) 1.8 % Normal [facility] Comment on above: Performed By: #### Jim CARIAS, , 2776-09, 69845-1, PINR #### [facility] ([id number]) [address], [facility] [address] [place] [address] Erythrocyte distribution width (RBC) [Ratio] 15.1 % High 11.5-15.0 [facility] Comment on above: Performed By: #### Jim CARIAS, , 2776-09, 00114-2, PINR #### [facility] ([id number]) [address], [address] [place] [address] Hematocrit (Bld) [Volume fraction] 43.6 % Normal 39-49 [facility] Comment on above: Performed By: #### Jim CARIAS, , 2776-09, 37236-7, PINR #### [facility] ([id number]) [address] [address] [place] [address] Hemoglobin (Bld) [Mass/Vol] 14.6 g/dL Normal 13.0-17.0 [facility] Comment on above: Performed By: #### Jim CARIAS, , 2776-09, 82906-4, PINR #### [facility] ([id number]) [address] [address] Lymphocytes (Bld) [#/Vol] 1.5 10*3/uL Normal 1.0-3.5 [facility] Comment on above: Performed By: #### Jim CARIAS, , 2776-09, 95735-8, PINR #### [facility] ([id number]) [address], [address] [place] [address] Lymphocytes/100 WBC (Bld) 18.0 % Normal [facility] Comment on above: Performed By: #### C BCA, 84173-5, 2776-, 42216-1, PINR #### [facility] ([id number]) [address], [address] [place] [address] MCH (RBC) [Entitic mass] 30.6 pg Normal 27-34 [facility] Comment on above: Performed By: #### Jim BCA, 92844-8, 2776-09, 37989-8, PINR #### [facility] ([id number]) [address], [address] [place] [address] MCHC (RBC) [Mass/Vol] 33.4 g/dL Normal 32-36 [facility] Comment on above: Performed By: #### C BCA, , 2776-, 02607-4, PINR #### [facility] ([id number]) [address] [place] [address] MCV (RBC) [Entitic vol] 92 fL Normal 80-100 [facility] Comment on above: Performed By: #### Jim BCA, , 2776-09, 42622-3, PINR #### [facility] ([id number]) [address], [address] [place] [address] Monocytes (Bld) [#/Vol] 0.9 10*3/uL Normal 0-0.9 [facility] Comment on above: Performed By: #### C BCA, 64603-7, 2776-, 08216-8, PINR #### [facility] ([id number]) [address], [address] [place] [address] Monocytes/100 WBC (Bld) 10.9 % Normal [facility] Comment on above: Performed By: #### Jim CARIAS, 43759-1, 7-1, 81624-4, PINR #### [facility] ([id number]) [address], [address] [place] [address] Neutrophils/100 WBC (Bld) 69.1 % Normal [facility] Comment on above: Performed By: #### Jim CARIAS, 91045-2, 2776-1, 05157-4, PINR #### [facility] ([id number]) [address], [address] [place] [address] Platelet mean volume (Bld) [Entitic vol] 7.5 fL Normal 7-12 [facility] Comment on above: Performed By: #### Jim CARIAS, 33602-6, 2776-, 36594-7, PINR #### [facility] ([id number]) [address], [address] [place] [address] Platelets (Bld) [#/Vol] 265 10*3/uL Normal 150-450 [facility] Comment on above: Performed By: #### Jim CARIAS, 42060-2, 2776-, 33970-9, PINR #### [facility] ([id number]) [address], [address] [place] [address] RBC COUNT 4.76 X10E12/L Normal 4.10-5.70 [facility] Comment on above: Performed By: #### Jim BCA, 69464-8, 2776-1, 89187-0, PINR #### [facility] ([id number]) [address], [address] [place] [address] WBC (Bld) [#/Vol] 8.6 10*3/uL Normal 4.0-11.0 [facility] Comment on above: Performed By: #### Jim CARIAS, 35461-0, 2776-, 73827-6, PINR #### [facility] ([id number]) [address], [address] [place] [address] COMPREHENSIVE METABOLIC PANE Néstor 09-21-2023 Albumin [Mass/Vol] 4.2 g/dL Normal 3.2-5.3 [facility] Comment on above: Performed By: #### C BCA, 12422-2, 2777-1, 04038-2, PINR #### [facility] ([id number]) [address], [address] [place] [address] ALP [Catalytic activity/Vol] 36 U/L Low 39-130 [facility] Comment on above: Performed By: #### C BCA, 18577-0, 7-1, 54721-1, PINR #### [facility] ([id number]) [address], [address] [place] [address] ALT [Catalytic activity/Vol] 36 U/L Normal 0-40 [facility] Comment on above: Performed By: #### C BCA, 39353-6, 2777-1, 53614-2, PINR #### [facility] ([id number]) [address], [address] [place] [address] Anion gap [Moles/Vol] 7 mmol/L Normal 5-15 [facility] Comment on above: Performed By: #### C BCA, 55712-3, 7-1, 56546-1, PINR #### [facility] ([id number]) [address], [address] [place] [address] AST [Catalytic activity/Vol] 31 U/L Normal 0-41 [facility] Comment on above: Performed By: #### C BCA, 81295-5, 2777-1, 84657-3, PINR #### [facility] ([id number]) [address], [address] [place] [address] Bilirubin [Mass/Vol] 0.5 mg/dL Normal 0.3-1.2 [facility] Comment on above: Performed By: #### C BCA, 18391-1, 7-1, 12901-4, PINR #### [facility] ([id number]) [address], [address] [place] [address] Calcium [Mass/Vol] 9.1 mg/dL Normal 8.5-10.5 [facility] Comment on above: Performed By: #### C BCA, 92787-7, 2776-, 37270-1, PINR #### [facility] ([id number]) [address], [facility] [address] [place] [address] Chloride [Moles/Vol] 103 mmol/L Normal 98-109 [facility] Comment on above: Performed By: #### C BCA, 59293-5, 2776-, 11166-6, PINR #### [facility] ([id number]) [address], [address] [place] [address] CO2 [Moles/Vol] 28 mmol/L Normal 22-32 [facility] Comment on above: Performed By: #### C BCA, , 2776-1, 07485-5, PINR #### [facility] ([id number]) [address], [address] [place] [address] Creatinine [Mass/Vol] 0.94 mg/dL Normal 0.60-1.30 [facility] Comment on above: Result Comment: METH OD TRACEABLE TO IDMS STANDARD Performed By: #### C BCA, , 2776-1, 84494-3, PINR #### [facility] ([id number]) [address], [address] [place] [address] GFR/1.73 sq M.predicted among non-blacks MDRD (S/P/Bld) [Vol rate/Area] 90 mL/min/{1.73_m2} Normal >59 [facility] Comment on above: Result Comment: Reported eGFR is based on the CKD-EPI 2020 equation that does not use a race coefficient. Performed By: #### C BCA, 34270-3, 2777-1, 24262-9, PINR #### [facility] ([id number]) [address], [address] [place] [address] Glucose [Mass/Vol] 187 mg/dL High 65-99 [facility] Comment on above: Performed By: #### C BCA, 07797-8, 2776-1, 59186-3, PINR #### [facility] ([id number]) [address], [address] [place] [address] Potassium [Moles/Vol] 4.7 mmol/L Normal 3.5-5.0 [facility] Comment on above: Performed By: #### C BCA, , 2776-1, 25545-1, PINR #### [facility] ([id number]) [address], [address] [place] [address] Protein [Mass/Vol] 7.2 g/dL Normal 6.0-8.0 [facility] Comment on above: Performed By: #### C BCA, 69936-7, 2776-1, 66216-8, PINR #### [facility] ([id number]) [address], [address] [place] [address] Sodium [Moles/Vol] 138 mmol/L Normal 134-146 [facility] Comment on above: Performed By: #### C BCA, 99028-2, 7-1, 80932-7, PINR #### [facility] ([id number]) [address], [address] [place] [address] Urea nitrogen [Mass/Vol] 27 mg/dL Normal 5-27 [facility] Comment on above: Performed By: #### C BCA, 39130-8, 7-1, 60058-7, PINR #### [facility] ([id number]) [address] [place] [address], [address] [place] [address] FL FLUORO GUIDANCE SPINAL PU NCTUREon 09-21-2023 [...] Booth MD on 09/21/2023 10:13 PM Normal [facility] Glucose Glucometer (BldC) [M ass/Vol]on 09-21-2023 Glucose [Mass/Vol] 149 mg/dL High 65-99 [facility] Glucose [Mass/Vol] 127 mg/dL High 65-99 [facility] Glucose [Mass/Vol] 147 mg/dL High 65-99 [facility] Glucose [Mass/Vol] 162 mg/dL High 65-99 [facility] Glucose [Mass/Vol] 178 mg/dL High 65-99 [facility] Surgical Pathologyon 024 Surgical Pathology Normal [facility] Comment on above: Result Comment: [facility] [address] [place] [address] Surgical Pathology Consultation Patient Name:TOM KHAN:1955 (Age: 68)Gender:MTaken:4Reported:4Physician(s):Bobbi Steen MD ( )Copy To: Rec. #:[id number]: #[id number] Final Pathologic Diagnosis Lumbar spine, excision: Fragments of bone and adjacent soft tissue with reactive and degenerative changes. Report Electronically Signed Out ao/09/27/2023vipin Marshall MD Interpretation performed at [facility], [address], [place] [address], License number: [id number]. 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 Gross Description Received in formalin labeled FEHL, epidural 6 are multiple ragged fragments of gonzalez-bell fibroelastic tissue admixed with yellow-gonzalez fibroadipose tissue and gonzalez bony material, 2.2 x 1.7 x 0.3 cm in aggregate. A definitive cyst is not identified. The soft tissue is submitted entirely in cassette A, and remaining bony material submitted entirely in cassette B following a period of fixation and decalcification in [employer]. (2, ns, [id number], m1) RADHA ramirez/09/24/2023O Specimen(s) Received Epidural -6 Fee Codes(s): 1; 05921, 11124 CBC AND AUTO DIFFon 09-20-19 24 ABSOLUTE BASOPHIL 0.0 X10E9/L Normal 0.0-0.2 [facility] Comment on above: Performed By: #### C BCA, 85863-4, 7-1, 47999-1, PINR #### [facility] ([id number]) [address], [address] [place] [address] ABSOLUTE NEUTROPHIL 5.6 X10E9/L Normal 1.5-6.6 [facility] Comment on above: Performed By: #### C BCA, 10306-4, 7-1, 97923-6, PINR #### [facility] ([id number]) [address], [address] [place] [address] Basophils/100 WBC (Bld) 0.6 % Normal [facility] Comment on above: Performed By: #### C BCA, 80118-8, 2777-1, 17056-3, PINR #### [facility] ([id number]) [address], [address] [place] [address] Eosinophils (Bld) [#/Vol] 0.2 10*3/uL Normal 0.0-0.4 [facility] Comment on above: Performed By: #### C BCA, 46535-9, 2776-1, 75893-5, PINR #### [facility] ([id number]) [address] [address] [place] [address] Eosinophils/100 WBC (Bld) 2.5 % Normal [facility] Comment on above: Performed By: #### C BCA, 43964-1, 2776-, 96351-6, PINR #### [facility] ([id number]) [address] [address] Erythrocyte distribution width (RBC) [Ratio] 15.3 % High 11.5-15.0 [facility] Comment on above: Performed By: #### Jim CARIAS, 76123-4, 2776-, 42967-7, PINR #### [facility] ([id number]) [address] [address] Hematocrit (Bld) [Volume fraction] 41.8 % Normal 39-49 [facility] Comment on above: Performed By: #### C BCA, 12074-8, 2776-09, 27505-3, PINR #### [facility] ([id number]) [address] [address] Hemoglobin (Bld) [Mass/Vol] 14.4 g/dL Normal 13.0-17.0 [facility] Comment on above: Performed By: #### C BCA, 94806-1, 2776-, 66882-1, PINR #### [facility] ([id number]) [address] [address] Lymphocytes (Bld) [#/Vol] 1.8 10*3/uL Normal 1.0-3.5 [facility] Comment on above: Performed By: #### C BCA, 41960-6, 2776-, 30793-4, PINR #### [facility] ([id number]) [address], [address] [place] [address] Lymphocytes/100 WBC (Bld) 21.2 % Normal [facility] Comment on above: Performed By: #### Jim CARIAS, 34998-3, 2776-, 46498-1, PINR #### [facility] ([id number]) [address], [address] [place] [address] MCH (RBC) [Entitic mass] 31.0 pg Normal 27-34 [facility] Comment on above: Performed By: #### Jim CARIAS, 54734-9, 2776-, 97646-1, PINR #### [facility] ([id number]) [address], [address] [place] [address] MCHC (RBC) [Mass/Vol] 34.6 g/dL Normal 32-36 [facility] Comment on above: Performed By: #### Jim CARIAS, , 2776-, 98741-7, PINR #### [facility] ([id number]) [address], [facility] [address] [place] [address] MCV (RBC) [Entitic vol] 90 fL Normal 80-100 [facility] Comment on above: Performed By: #### Jim CARIAS, 65461-3, 2776-, 72360-9, PINR #### [facility] ([id number]) [address], [address] [place] [address] Monocytes (Bld) [#/Vol] 0.8 10*3/uL Normal 0-0.9 [facility] Comment on above: Performed By: #### Jim CARIAS, 05466-5, 2776-, 44170-6, PINR #### [facility] ([id number]) [address], [address] [place] [address] Monocytes/100 WBC (Bld) 9.2 % Normal [facility] Comment on above: Performed By: #### C BCA, 98035-5, 2777-1, 85237-2, PINR #### [facility] ([id number]) [address], [address] [place] [address] Neutrophils/100 WBC (Bld) 66.5 % Normal [facility] Comment on above: Performed By: #### Jim BCA, 46765-9, 2776-1, 14868-6, PINR #### [facility] ([id number]) [address], [address] [place] [address] Platelet mean volume (Bld) [Entitic vol] 7.4 fL Normal 7-12 [facility] Comment on above: Performed By: #### Jim CARIAS, 61656-9, 7-1, 75267-0, PINR #### [facility] ([id number]) [address], [address] [place] [address] Platelets (Bld) [#/Vol] 293 10*3/uL Normal 150-450 [facility] Comment on above: Performed By: #### Jim CARIAS, 80774-6, 2776-1, 99678-2, PINR #### [facility] ([id number]) [address], [address] [place] [address] RBC COUNT 4.67 X10E12/L Normal 4.10-5.70 [facility] Comment on above: Performed By: #### Jim BCA, 94372-6, 2776-1, 68978-5, PINR #### [facility] ([id number]) [address], [address] [place] [address] WBC (Bld) [#/Vol] 8.4 10*3/uL Normal 4.0-11.0 [facility] Comment on above: Performed By: #### Jim BCA, 56728-5, 7-1, 12623-3, PINR #### [facility] ([id number]) [address], [address] [place] [address] COMPREHENSIVE METABOLIC PANE Néstor 09-20-2023 Albumin [Mass/Vol] 4.2 g/dL Normal 3.2-5.3 [facility] Comment on above: Performed By: #### C MP #### [facility] ([id number]) [address], [address] [place] [address] ALP [Catalytic activity/Vol] 36 U/L Low 39-130 [facility] Comment on above: Performed By: #### C MP #### [facility] ([id number]) [address], [address] [place] [address] ALT [Catalytic activity/Vol] 41 U/L High 0-40 [facility] Comment on above: Performed By: #### C MP #### [facility] ([id number]) [address], [address] [place] [address] Anion gap [Moles/Vol] 11 mmol/L Normal 5-15 [facility] Comment on above: Performed By: #### C MP #### [facility] ([id number]) [address], [address] [place] [address] AST [Catalytic activity/Vol] 35 U/L Normal 0-41 [facility] Comment on above: Performed By: #### C MP #### [facility] ([id number]) [address], [address] [place] [address] Bilirubin [Mass/Vol] 0.4 mg/dL Normal 0.3-1.2 [facility] Comment on above: Performed By: #### C MP #### [facility] ([id number]) [address], [address] [place] [address] Calcium [Mass/Vol] 8.9 mg/dL Normal 8.5-10.5 [facility] Comment on above: Performed By: #### C MP #### [facility] ([id number]) [address], [address] [place] [address] Chloride [Moles/Vol] 103 mmol/L Normal 98-109 [facility] Comment on above: Performed By: #### C MP #### [facility] ([id number]) [address], [address] [place] [address] CO2 [Moles/Vol] 26 mmol/L Normal 22-32 [facility] Comment on above: Performed By: #### C MP #### [facility] ([id number]) [address] [facility] [place] [address] Creatinine [Mass/Vol] 1.07 mg/dL Normal 0.60-1.30 [facility] Comment on above: Result Comment: METH OD TRACEABLE TO IDMS STANDARD Performed By: #### C MP #### [facility] ([id number]) [address] [facility], [address] [place] [address] GFR/1.73 sq M.predicted among non-blacks MDRD (S/P/Bld) [Vol rate/Area] 77 mL/min/{1.73_m2} Normal >59 [facility] Comment on above: Result Comment: Reported eGFR is based on the CKD-EPI 2020 equation that does not use a race coefficient. Performed By: #### C MP #### [facility] ([id number]) [address], [address] [place] [address] Glucose [Mass/Vol] 164 mg/dL High 65-99 [facility] Comment on above: Performed By: #### C MP #### [facility] ([id number]) [address], [address] [place] [address] Potassium [Moles/Vol] 3.6 mmol/L Normal 3.5-5.0 [facility] Comment on above: Performed By: #### C MP #### [facility] ([id number]) [address], [address] [place] [address] Protein [Mass/Vol] 7.1 g/dL Normal 6.0-8.0 [facility] Comment on above: Performed By: #### C MP #### [facility] ([id number]) [address], [address] [place] [address] Sodium [Moles/Vol] 140 mmol/L Normal 134-146 [facility] Comment on above: Performed By: #### C MP #### [facility] ([id number]) [address], [address] [place] [address] Urea nitrogen [Mass/Vol] 32 mg/dL High 5-27 [facility] Comment on above: Performed By: #### C MP #### [facility] ([id number]) [address], [address] [place] [address] Glucose Glucometer (BldC) [M ass/Vol]on 09-20-2023 Glucose [Mass/Vol] 250 mg/dL High 65-99 [facility] Glucose [Mass/Vol] 154 mg/dL High 65-99 [facility] Glucose [Mass/Vol] 185 mg/dL High 65-99 [facility] MAGNESIUMon 09-20-2023 Magnesium [Mass/Vol] 2.3 mg/dL Normal 1.8-2.6 [facility] Comment on above: Performed By: #### C BCA, 15336-3, 2777-1, 76309-9, PINR #### [facility] ([id number]) [address], [address] [place] [address] MR LUMBAR SPINE WO CONTon MR LUMBAR [...] Flood MD on 09/20/2023 10:17 AM Normal [facility] Natriuretic peptide B [Mass/ Vol]on 09-20-2023 Natriuretic peptide B (Bld) [Mass/Vol] 71 pg/mL Normal <100.0 [facility] Comment on above: Performed By: #### 3 0934-4 #### [facility] ([id number]) [address], [address] [place] [address] PHOSPHORUSon 09-20-2023 Phosphate [Mass/Vol] 4.8 mg/dL Normal 2.4-4.9 [facility] Comment on above: Result Comment: SPEC IMEN HEMOLYZED, RESULTS INCREASED SLIGHTLY HEMOLYZED Performed By: #### C BCA, 41792-2, 2777-1, 97657-4, PINR #### [facility] ([id number]) [address], [address] [place] [address] POTASSIUMon 09-20-2023 Potassium [Moles/Vol] 4.2 mmol/L Normal 3.5-5.0 [facility] Comment on above: Performed By: #### C BCA, 90658-0, 2777-1, 42876-1, PINR #### [facility] ([id number]) [address], [address] [place] [address] PROTIME AND INRon 09-20-2023 INR Coag (PPP) [Relative time] 1.0 {INR} Normal 0.8-1.1 [facility] Comment on above: Performed By: #### C BCA, 05137-3, 2777-1, 72312-7, PINR #### [facility] ([id number]) [address] [place] [address] PT Coag (PPP) [Time] 12.0 s Normal 9.8-13.2 [facility] Comment on above: Performed By: #### C BCA, 57569-6, 2777-1, 58011-9, PINR #### [facility] ([id number]) [address] [place] [address] US ABDOMEN LMTDon 09-20-2023 US ABDOMEN LMTD [...] Langston MD on 09/20/2023 7:53 AM Normal [facility] XR SPINE LUMB BENDING ONLY 2 -3 [...] Shine MD on 09/20/2023 3:08 PM Normal [facility] aPTT Coag (PPP) [Time]on aPTT Coag (Bld) [Time] 32 s Normal 26-37 [facility] Comment on above: Performed By: #### C BCA, , 2777-1, 98777-8, PINR #### [facility] ([id number]) [address], [address] [place] [address] AMMONIAon 09-19-2023 Ammonia (P) [Moles/Vol] 15 umol/L Normal 11-35 [facility] Comment on above: Performed By: #### B MP, #### [facility] ([id number]) [address], [address] [place] [address] CBC AND AUTO DIFFon 09-19-19 24 ABSOLUTE BASOPHIL 0.0 X10E9/L Normal 0.0-0.2 [facility] Comment on above: Performed By: #### C BCA, CMP, , 72792-3, THYR #### [facility] ([id number]) [address] [place] [address] ABSOLUTE NEUTROPHIL 5.6 X10E9/L Normal 1.5-6.6 [facility] Comment on above: Performed By: #### C BCA, CMP, , 60560-2, THYR #### [facility] ([id number]) [address] [place] [address] Basophils/100 WBC (Bld) 0.3 % Normal [facility] Comment on above: Performed By: #### C BCA, CMP, , 79935-4, THYR #### [facility] ([id number]) [address] [place] [address] Eosinophils (Bld) [#/Vol] 0.2 10*3/uL Normal 0.0-0.4 [facility] Comment on above: Performed By: #### C BCA, CMP, , 30643-8, THYR #### [facility] ([id number]) [address] [place] [address] Eosinophils/100 WBC (Bld) 2.4 % Normal [facility] Comment on above: Performed By: #### C BCA, CMP, , 11756-3, THYR #### [facility] ([id number]) [address] [place] [address] Erythrocyte distribution width (RBC) [Ratio] 15.2 % High 11.5-15.0 [facility] Comment on above: Performed By: #### C BCA, CMP, , 95142-2, THYR #### [facility] ([id number]) [address] [place] [address] Hematocrit (Bld) [Volume fraction] 43.8 % Normal 39-49 [facility] Comment on above: Performed By: #### C BCA, CMP, , 13576-4, THYR #### [facility] ([id number]) [address] [place] [address] Hemoglobin (Bld) [Mass/Vol] 14.9 g/dL Normal 13.0-17.0 [facility] Comment on above: Performed By: #### C BCA, CMP, , 90076-0, THYR #### [facility] ([id number]) [address] [place] [address] Lymphocytes (Bld) [#/Vol] 1.8 10*3/uL Normal 1.0-3.5 [facility] Comment on above: Performed By: #### C BCA, CMP, 54837-7, 84957-8, THYR #### [facility] ([id number]) [address] [place] [address] Lymphocytes/100 WBC (Bld) 20.9 % Normal [facility] Comment on above: Performed By: #### C BCA, CMP, , 10388-8, THYR #### [facility] ([id number]) [address] [place] [address] MCH (RBC) [Entitic mass] 30.4 pg Normal 27-34 [facility] Comment on above: Performed By: #### C BCA, CMP, , 78937-1, THYR #### [facility] ([id number]) [address] [place] [address] MCHC (RBC) [Mass/Vol] 34.0 g/dL Normal 32-36 [facility] Comment on above: Performed By: #### C BCA, CMP, 30743-6, 99393-9, THYR #### [facility] ([id number]) [address] [place] [address] MCV (RBC) [Entitic vol] 90 fL Normal 80-100 [facility] Comment on above: Performed By: #### C BCA, CMP, 58981-9, 77651-6, THYR #### [facility] ([id number]) [address] [place] [address] Monocytes (Bld) [#/Vol] 0.8 10*3/uL Normal 0-0.9 [facility] Comment on above: Performed By: #### C BCA, CMP, 88795-2, 31436-6, THYR #### [facility] ([id number]) [address] [place] [address] Monocytes/100 WBC (Bld) 9.6 % Normal [facility] Comment on above: Performed By: #### C BCA, CMP, 53707-8, 64101-1, THYR #### [facility] ([id number]) [address] [place] [address] Neutrophils/100 WBC (Bld) 66.8 % Normal [facility] Comment on above: Performed By: #### C BCA, CMP, 75847-7, 12575-7, THYR #### [facility] ([id number]) [address] [place] [address] Platelet mean volume (Bld) [Entitic vol] 7.3 fL Normal 7-12 [facility] Comment on above: Performed By: #### C BCA, CMP, 84229-1, 15066-4, THYR #### [facility] ([id number]) [address] [place] [address] Platelets (Bld) [#/Vol] 335 10*3/uL Normal 150-450 [facility] Comment on above: Performed By: #### C BCA, CMP, 70551-7, 30424-3, THYR #### [facility] ([id number]) [address] [place] [address] RBC COUNT 4.89 X10E12/L Normal 4.10-5.70 [facility] Comment on above: Performed By: #### C BCA, CMP, 31026-1, 04669-6, THYR #### [facility] ([id number]) [address] [place] [address] WBC (Bld) [#/Vol] 8.4 10*3/uL Normal 4.0-11.0 [facility] Comment on above: Performed By: #### C BCA, CMP, 48198-7, 90928-1, THYR #### [facility] ([id number]) [address] [place] [address] [place] [address] COMPREHENSIVE METABOLIC PANE Nétsor 09-19-2023 Albumin [Mass/Vol] 4.5 g/dL Normal 3.2-5.3 [facility] Comment on above: Performed By: #### C BCA, CMP, 63009-7, 62940-4, THYR #### [facility] ([id number]) [address] [place] [address] [place] [address] ALP [Catalytic activity/Vol] 43 U/L Normal 39-130 [facility] Comment on above: Performed By: #### C BCA, CMP, , 43596-3, THYR #### [facility] ([id number]) [address] [place] [address] ALT [Catalytic activity/Vol] 47 U/L High 0-40 [facility] Comment on above: Performed By: #### C BCA, CMP, , 94101-9, THYR #### [facility] ([id number]) [address] [place] [address] [place] [address] Anion gap [Moles/Vol] 12 mmol/L Normal 5-15 [facility] Comment on above: Performed By: #### C BCA, CMP, , 76818-4, THYR #### [facility] ([id number]) [address] [place] [address] [place] [address] AST [Catalytic activity/Vol] 51 U/L High 0-41 [facility] Comment on above: Performed By: #### C BCA, CMP, , 51844-7, THYR #### [facility] ([id number]) [address] [place] [address] Bilirubin [Mass/Vol] 0.6 mg/dL Normal 0.3-1.2 [facility] Comment on above: Performed By: #### C BCA, CMP, 55162-9, 88805-4, THYR #### [facility] ([id number]) [address] [place] [address] 737[address] Calcium [Mass/Vol] 9.2 mg/dL Normal 8.5-10.5 [facility] Comment on above: Performed By: #### C BCA, CMP, , 36878-2, THYR #### [facility] ([id number]) [address] [place] [address] Chloride [Moles/Vol] 100 mmol/L Normal 98-109 [facility] Comment on above: Performed By: #### C BCA, CMP, , 29668-6, THYR #### [facility] ([id number]) [address] [place] [address] CO2 [Moles/Vol] 24 mmol/L Normal 22-32 [facility] Comment on above: Performed By: #### C BCA, CMP, , 45928-8, THYR #### [facility] ([id number]) [address] [place] [address] Creatinine [Mass/Vol] 1.13 mg/dL Normal 0.70-1.20 [facility] Comment on above: Result Comment: METH OD TRACEABLE TO IDMS STANDARD Performed By: #### C BCA, CMP, , 34369-5, THYR #### [facility] ([id number]) 15 [place] [address] GFR/1.73 sq M.predicted among non-blacks MDRD (S/P/Bld) [Vol rate/Area] 72 mL/min/{1.73_m2} Normal >59 [facility] Comment on above: Result Comment: Reported eGFR is based on the CKD-EPI 2020 equation that does not use a race coefficient. Performed By: #### C BCA, CMP, 43853-0, 24548-0, THYR #### [facility] ([id number]) [address] [place] [address] Glucose [Mass/Vol] 167 mg/dL High 65-99 [facility] Comment on above: Performed By: #### C BCA, CMP, 75716-9, 03209-8, THYR #### [facility] ([id number]) [address] [place] [address] Potassium [Moles/Vol] 3.6 mmol/L Normal 3.5-5.0 [facility] Comment on above: Performed By: #### C BCA, CMP, , 53725-7, THYR #### [facility] ([id number]) [address] [place] [address] Protein [Mass/Vol] 8.2 g/dL High 6.0-8.0 [facility] Comment on above: Performed By: #### C JV, CMP, , 55658-7, THYR #### [facility] ([id number]) [address] [place] [address]65 Sodium [Moles/Vol] 136 mmol/L Normal 134-146 [facility] Comment on above: Performed By: #### C BCA, CMP, , 16369-2, THYR #### [facility] ([id number]) [address] [place] [address] Urea nitrogen [Mass/Vol] 31 mg/dL High 5-27 [facility] Comment on above: Performed By: #### C BCA, CMP, 14076-5, 42224-7, THYR #### [facility] ([id number]) [address] [place] [address] BRAIN WO CONTon 4 CT BRAIN [...] Varghese MD on 09/19/2023 5:54 PM Normal [facility] CT LUMBAR SPINE W CONTon CT LUMBAR [...] Forbes DO on 09/19/2023 6:16 PM Normal [facility] Glucose Glucometer (BldC) [M ass/Vol]on 09-19-2023 Glucose [Mass/Vol] 171 mg/dL High 65-99 [facility] Glucose [Mass/Vol] 255 mg/dL High 65 - 99 mg/dL [facility] Interpretation and review of laboratory results Abnormal [facility] Glucose [Mass/Vol] 255 mg/dL High 65-99 [facility] MAGNESIUMon 09-19-2023 Magnesium [Mass/Vol] 2.3 mg/dL Normal 1.8-2.6 [facility] Comment on above: Performed By: #### C BCA, CMP, 75221-5, 43673-4, THYR #### [facility] ([id number]) [address] [place] [address], [place] [address] THYROID PROFILEon 09-19-2023 Free T4 [Mass/Vol] 0.92 ng/dL Normal 0.61-1.60 [facility] Comment on above: Performed By: #### Aristeo FRANKEL, #### [facility] ([id number]) [address], [address] [place] [address] TSH 1.50 uIU/mL Normal 0.49-4.67 [facility] Comment on above: Performed By: #### Aristeo FRANKEL, 94929-3 #### [facility] ([id number]) [address], [address] [place] [address] TROPONIN Ion 09-19-2023 Troponin I.cardiac [Mass/Vol] 0.02 ng/mL Normal 0.00-0.04 [facility] Comment on above: Performed By: #### B MARLYS, 24247-9 #### [facility] ([id number]) [address], [address] [place] [address] URN MACROSCOPIC NURon 2023 BILIRUBIN FERNANDO Negative Normal NEG [facility] Comment on above: Performed By: #### Aristeo FRANKEL, #### [facility] ([id number]) [address], [address] [place] [address] BLOOD/HGB FERNANDO Negative Normal NEG [facility] Comment on above: Performed By: #### Aristeo FRANKEL, #### [facility] ([id number]) [address] [place] [address] GLUCOSE FERNANDO >=1000 Abnormal NEG [facility] Comment on above: Performed By: #### Aristeo FRANKEL, #### [facility] ([id number]) [address] [place] [address] KETONES FERNANDO Negative Normal NEG [facility] Comment on above: Performed By: #### Aristeo FRANKEL, #### [facility] ([id number]) [address] [place] [address] LEUKOCYTE ESTERASE FERNANDO Negative Normal NEG [facility] Comment on above: Performed By: #### Aristeo FRANKEL, #### [facility] ([id number]) [address], [address] [place] [address] NITRITE FERNANDO Negative Normal NEG [facility] Comment on above: Performed By: #### Aristeo FRANKEL, #### [facility] ([id number]) [address] [place] [address] PH FERNANDO 5.5 Normal 5.0-8.5 [facility] Comment on above: Performed By: #### Aristeo FRANKEL, #### [facility] ([id number]) [address], [address] [place] [address] PROTEIN FERNANDO Negative Normal NEG [facility] Comment on above: Performed By: #### Aristeo FRANKEL, #### [facility] ([id number]) [address] [place] [address] SPECIFIC GRAVITY FERNANDO 1.015 Normal 1.003-1.035 [facility] Comment on above: Performed By: #### Aristeo FRANKEL, #### [facility] ([id number]) [address], [address] [place] [address] UROBILINOGEN FERNANDO 0.2 eu/dL Normal <1.1 [facility] Comment on above: Performed By: #### Aristeo FRANKEL, #### [facility] ([id number]) [address], [address] [place] [address] VENOUS BLOOD GASon 4 JOSE'S TEST Normal [facility] Comment on above: Performed By: #### Aristeo FRANKEL, #### [facility] ([id number]) [address], [address] [place] [address] Base excess Calc (Bld) [Moles/Vol] 1.0 mmol/L Normal 0.0-2.0 [facility] Comment on above: Performed By: #### Aristeo FRANKEL, #### [facility] ([id number]) [address], [address] [place] [address] Body temperature 98.6 [degF] Normal 37.0 [facility] Comment on above: Performed By: #### Aristeo FRANKEL, #### [facility] ([id number]) [address], [address] [place] [address] HCO3 (Bld) [Moles/Vol] 25.0 mmol/L High 20.0-24.0 [facility] Comment on above: Performed By: #### Aristeo FRANKEL, #### [facility] ([id number]) [address], [address] [place] [address] Oxygen saturation in Blood 53.0 % Low >80.0 [facility] Comment on above: Performed By: #### Aristeo FRANKEL, #### [facility] ([id number]) [address], [address] [place] [address] OXYGEN SOURCE RoomAir Normal [facility] Comment on above: Performed By: #### Aristeo FRANKEL, 18299-4 #### [facility] ([id number]) [address], [address] [place] [address] PCO2, VENOUS 38.6 MMHG Normal 35-50 [facility] Comment on above: Performed By: #### Aristeo FRANKEL, 13345-3 #### [facility] ([id number]) [address] [place] [address] PH, VENOUS 7.419 Normal 7.320-7.420 [facility] Comment on above: Performed By: #### Aristeo FRANKEL, 79579-1 #### [facility] ([id number]) [address], [address] [place] [address] PO2, VENOUS 28 MMHG Low 30-50 [facility] Comment on above: Performed By: #### Aristeo FRANKEL, 61259-3 #### [facility] ([id number]) [address], [address] [place] [address] SAMPLE SITE N/A Normal [facility] Comment on above: Performed By: #### Aristeo FRANKEL, 78234-6 #### [facility] ([id number]) [address], [address] [place] [address] SAMPLE TYPE VENOUS Normal [facility] Comment on above: Performed By: #### Aristeo FRANKEL, #### [facility] ([id number]) [address], [address] [place] [address] XR CHEST 2 VWSon 09-19-2023 XR CHEST 2 VWS XR CHEST 2 VWS PA and lateral chest: HISTORY: Cough. 2 views of the chest are obtained. Cardiac and mediastinal contours are unchanged. Pulmonary vasculature is congested. There is no pneumothorax. No obvious effusion or significant consolidation. IMPRESSION: Cardiomegaly and vascular congestion. Finalized by Reilly Hassan MD on 09/19/2023 5:55 PM Normal [facility] ALT No additional P-5'-P [Ca talytic activity/Vol]on 09-17-2023 ALT [Catalytic activity/Vol] 29 U/L Normal 0-40 [facility] Comment on above: Performed By: #### 1 744-2, 1920-04, , 2088-09 #### [facility] ([id number]) [address], [address] [place] [address] Constantino 09-17-2023 AST [Catalytic activity/Vol] 22 U/L Normal 0-41 [facility] Comment on above: Performed By: #### 1 744-2, 1920-04, , 2088-09 #### [facility] ([id number]) [address] [facility] [place] [address] DIRECT LDLon 09-17-2023 Cholesterol in LDL [Mass/Vol] 101 mg/dL Normal <130 [facility] Comment on above: Result Comment: LDL <100 mg/dL - Desirable LDL 130-159 mg/dL - Borderline High Risk LDL >160 mg/dL - High Risk Performed By: #### 1 744-2, 1920-04, , 2088-09 #### [facility] ([id number]) [address], [address] [place] [address] Lipid 1996 panelon Cholesterol [Mass/Vol] 214 mg/dL High 150-200 [facility] Comment on above: Performed By: #### 1 744-2, 1920-04, , 2088-09 #### [facility] ([id number]) [address], [address] [place] [address] Cholesterol in HDL [Mass/Vol] 37 mg/dL Low >39 [facility] Comment on above: Result Comment: HDL <40 mg/dL - High Risk HDL > or = 40mg/dL- Desirable HDL >60 mg/dL - Negative Risk Performed By: #### 1 744-2, 1920-04, , 2088-09 #### [facility] ([id number]) [address], [address] [place] [address] Cholesterol in VLDL [Mass/Vol] 90 mg/dL High 0-30 [facility] Comment on above: Performed By: #### 1 744-2, 1920-04, , 2088-09 #### [facility] ([id number]) [address], [address] [place] [address] CHOLESTEROL:HDL 5.8 High 1.0-5.0 [facility] Comment on above: Performed By: #### 1 744-2, 1920-04, , 2088-09 #### [facility] ([id number]) [address], [facility] [address] [place] [address] LDL (CALC) RESULT NOT REPORTED DUE TO HIGH TRIGLYCERIDE Normal <130 [facility] Comment on above: Performed By: #### 1 744-2, 1920-04, , 2088-09 #### [facility] ([id number]) [address], [address] [place] [address] Triglyceride [Mass/Vol] 448 mg/dL High 27-150 [facility] Comment on above: Performed By: #### 1 744-2, 1920-04, , 2088-09 #### [facility] ([id number]) [address], [address] [place] [address] BASIC METABOLIC PANLon 09-14 Anion gap [Moles/Vol] 11 mmol/L Normal 5-15 [facility] Comment on above: Performed By: #### Aristeo FRANKEL, #### [facility] ([id number]) [address], [address] [place] [address] Calcium [Mass/Vol] 9.3 mg/dL Normal 8.5-10.5 [facility] Comment on above: Performed By: #### Aristeo FRANKEL, #### [facility] ([id number]) [address], [address] [place] [address] Chloride [Moles/Vol] 103 mmol/L Normal 98-109 [facility] Comment on above: Performed By: #### Aristeo FRANKEL, #### [facility] ([id number]) [address] [place] [address] CO2 [Moles/Vol] 26 mmol/L Normal 22-32 [facility] Comment on above: Performed By: #### Aristeo FRANKEL, #### [facility] ([id number]) [address], [address] [place] [address] Creatinine [Mass/Vol] 0.98 mg/dL Normal 0.60-1.30 [facility] Comment on above: Result Comment: METH OD TRACEABLE TO IDMS STANDARD Performed By: #### Aristeo FRANKEL, #### [facility] ([id number]) [address], [address] [place] [address] GFR/1.73 sq M.predicted among non-blacks MDRD (S/P/Bld) [Vol rate/Area] 86 mL/min/{1.73_m2} Normal >59 [facility] Comment on above: Result Comment: Reported eGFR is based on the CKD-EPI 2020 equation that does not use a race coefficient. Performed By: #### Aristeo FRANKEL, #### [facility] ([id number]) [address], [address] [place] [address] Glucose [Mass/Vol] 182 mg/dL High 65-99 [facility] Comment on above: Performed By: #### Aristeo FRANKEL, 17204-4 #### [facility] ([id number]) [address], [facility] [address] [place] [address] Potassium [Moles/Vol] 4.1 mmol/L Normal 3.5-5.0 [facility] Comment on above: Performed By: #### Aristeo FRANKEL, #### [facility] ([id number]) [address], [address] [place] [address] Sodium [Moles/Vol] 140 mmol/L Normal 134-146 [facility] Comment on above: Performed By: #### Aristeo FRANKEL, #### [facility] ([id number]) [address] [place] [address] Urea nitrogen [Mass/Vol] 29 mg/dL High 5-27 [facility] Comment on above: Performed By: #### Aristeo FRANKEL, 08600-0 #### [facility] ([id number]) [address] [place] [address] MAGNESIUMon 09-14-2023 Magnesium [Mass/Vol] 2.4 mg/dL Normal 1.8-2.6 [facility] Comment on above: Performed By: #### Aristeo FRANKEL, #### [facility] ([id number]) [address], [address] [place] [address] Bacteria identifiedon 2022 Bacteria identified Cx Nom (U) Test: Urine Culture Specimen Type: Urine Specimen Date: 07/21/2023 11:49 AM Result Date: 07/23/2023 2:29 PM Result Status: Final result Abnormal: No Resulting Lab: [facility] [id number] [place] [address] CULTURE No growth [facility] Comment on above: Performed By: #### 6 30-4 #### CHRIS Virk ([id number]) [facility] ([facility]) [address] [place] [id number] Office Visit (Cardiology)on 03-15-2023 Follow-up visit Diagnoses/Problems [...] Aminotransferase, Serum; Status:Active - Retrospective Authorization; Requested for:[id number]; AST; Status:Active - Retrospective Authorization; Requested for:[id number]; Lipid Panel; Status:Active - Retrospective Authorization; Requested for:[id number]; CAD, multiple vessel, Hypertension IO EKG Electrocardiogram- 12 Lead; Status:Complete; Done: [id number] Class 1 obesity with body mass index (BMI) of 34.0 to 34.9 in adult Healthy Weight Tips; Status:Complete - Retrospective Authorization; Done: 21Onz0767 Some eating tips that can help you lose weight.; Status:Complete - Retrospective Authorization; Done: [id number] SocHx: Never a smoker Tobacco Use Screening; Status:Complete; Done: [id number] Patient Instructions Please bring all medicines, vitamins, [...] Subcutaneous Solution Pen-injectorinject as directed once weekly Touje[employer] Max SoloStar 300 UNIT/ML Subcutaneous Solution Pen-injectorinject as directed Vitamin B-12 100 MCG Oral TabletTake 1 tablet twice daily Patient brou (more content not included)... Normal [employer] Tobacco Screening.on 023 Fall risk assessment b) One or more falls in the last year [facility] 250 DO Work Phone: Tobacco use status CP b) No [facility] 250 DO Work Phone: XR CHEST AP/PA [...] on SunJanuary 04, 2023 8:22:49 PM EDT [facility] Comment on above: Order Comment: Injur y/Trauma or Illness?:Illness/Other How long have you had these symptoms (acute/chronic)?:Acute Reason for exam?:cough History of cancer?:unk Surgeries, chemotherapy, or radiation?:unk Type of Exam?:Initial Additional signs and symptoms?:SOB, open heart 09 XR Chest AP/PA and LATon Nonacute portable chest. Workstation ID: [id number] [employer] RIS EXAMINATION: XR CHEST AP/PA AND LAT [...] are intact. Sternal wires indicate prior surgery. [facility] Niko Hudson, DO - 01/04/2023 EXAMINATION: XR [...] IMPRESSION: Nonacute portable chest. Workstation ID: [id number] [facility] Radiology Study observation (narrative) [facility] XR Chest AP/PA and LATOrdere d By: Niko Hudson on 01-04-2023 [facility] Work Phone: VIT B12 AND FOLATEon 022 Cobalamin (Vitamin B12) [Mass/Vol] 483.0 pg/mL Normal 193.0-986.0 [facility] Comment on above: Performed By: #### B 12FOL #### [facility] [address] [place], [place] [address] Dr. Cary Malagon FOLATE 21.00 ng/mL Normal 8.60-58.90 [facility] Comment on above: Performed By: #### B 12FOL #### [facility] [address] [place], [place] [address] Dr. Cary Malagon [facility] METABOLIC PANE [facility] 03-17-2022 Albumin [Mass/Vol] 4.4 g/dL Normal 3.6-5.1 [facility] Comment on above: Performed By: #### 4 96, 80547, 7600 #### [facility] [place] [address] Executive Office Manager: Ck Wallis MD Albumin/Globulin [Mass ratio] 1.7 {ratio} Normal 1.0-2.5 [facility] Comment on above: Performed By: #### 4 96, 86204, 0 #### [facility] [place] [address] Executive Office Manager: Ck Wallis MD ALP [Catalytic activity/Vol] 45 U/L Normal 35-144 [facility] Comment on above: Performed By: #### 4 96, 01673, 7600 #### [facility] [place] [address] Executive Office Manager: Ck Wlalis MD ALT [Catalytic activity/Vol] 29 U/L Normal 9-46 [facility] Comment on above: Performed By: #### 4 96, 41262, 7600 #### [facility] [place] [address] Executive Office Manager: Ck Wallis MD AST [Catalytic activity/Vol] 18 U/L Normal 10-35 [facility] Comment on above: Performed By: #### 4 96, 44674, 7600 #### [facility] [place] [address] Executive Office Manager: Ck Wallis MD Bilirubin [Mass/Vol] 0.3 mg/dL Normal 0.2-1.2 [facility] Comment on above: Performed By: #### 4 96, 77534, 7600 #### [facility] [place] [address] Executive Office Manager: Ck Wallis MD BUN/CREATININE RATIO NOT APPLICABLE Normal 6-22 [facility] Comment on above: Performed By: #### 4 96, 57029, 7600 #### [facility] [place] [address] Executive Office Manager: Ck Wallis MD Calcium [Mass/Vol] 9.5 mg/dL Normal 8.6-10.3 [facility] Comment on above: Performed By: #### 4 96, 93196, 7600 #### [facility] [place] [address] Executive Office Manager: Ck Wallis MD Chloride [Moles/Vol] 101 mmol/L Normal 98-110 [facility] Comment on above: Performed By: #### 4 96, 81586, 7600 #### [facility] [place] [address] Executive Office Manager: Ck Wallis MD CO2 [Moles/Vol] 23 mmol/L Normal 20-32 [facility] Comment on above: Performed By: #### 4 96, 54082, 7600 #### [facility] [place] [address] Executive Office Manager: Ck Wallis MD Creatinine [Mass/Vol] 0.99 mg/dL Normal 0.70-1.35 [facility] Comment on above: Performed By: #### 4 96, 61070, 7600 #### [facility] [place] [address] Executive Office Manager: Ck Wallis MD GFR/1.73 sq M.predicted among non-blacks MDRD (S/P/Bld) [Vol rate/Area] 85 mL/min/{1.73_m2} Normal > OR = 60 [facility] Comment on above: Result Comment: The eGFR is based on the CKD-EPI 2020 equation. To calculate the new eGFR from a previous Creatinine or Cystatin C result, go to https://www.kidney.org/professionals/ kdoqi/gfr%5Fcalculator Performed By: #### 4 96, 52018, 7600 #### [facility] [place] [address] Executive Office Manager: Ck Wallis MD Globulin (S) [Mass/Vol] 2.6 g/dL Normal 1.9-3.7 [facility] Comment on above: Performed By: #### 4 96, 00491, 7600 #### [facility] [place] [address] Executive Office Manager: Ck Wallis MD Glucose [Mass/Vol] 128 mg/dL High 65-99 [facility] Comment on above: Result Comment: Fasting reference interval For someone without known diabetes, a glucose value >125 mg/dL indicates that they may have diabetes and this should be confirmed with a follow-up test. Performed By: #### 4 96, 29940, 7600 #### [facility] [place] [address] Executive Office Manager: Ck Wallis MD Potassium [Moles/Vol] 4.0 mmol/L Normal 3.5-5.3 [facility] Comment on above: Performed By: #### 4 96, 68660, 7600 #### [facility] [place] [address] Executive Office Manager: Ck Wallis MD Protein [Mass/Vol] 7.0 g/dL Normal 6.1-8.1 [facility] Comment on above: Performed By: #### 4 96, 94959, 7600 #### [facility] [place] [address] Executive Office Manager: Ck Wallis MD Sodium [Moles/Vol] 136 mmol/L Normal 135-146 [facility] Comment on above: Performed By: #### 4 96, 70795, 7600 #### [facility] [address] Executive Office Manager: Ck Wallis MD Urea nitrogen [Mass/Vol] 23 mg/dL Normal 7-25 [facility] Comment on above: Performed By: #### 4 , 54185, 7600 #### [facility] [place] [address] Executive Office Manager: Ck Wallis MD HEMOGLOBIN A1con 03-17-2022 HEMOGLOBIN A1c 7.3 % of total [...] diabetes for children. Performed By: #### 4 , 35803, 0 #### [facility] [address], [address] [place] [address] Executive Office Manager: kC Wallis MD LIPID PANEL, STANDARDon 03-03 Cholesterol [Mass/Vol] 247 mg/dL High <200 [facility] Comment on above: Order Comment: FASTI NG:YES FASTING: YES Performed By: #### 4 , 21621, 0 #### [facility] [address], [address] [place] [address] Executive Office Manager: Ck Wallis MD Cholesterol in HDL [Mass/Vol] 39 mg/dL Low > OR = 40 [facility] Comment on above: Order Comment: FASTI NG:YES FASTING: YES Performed By: #### 4 96, 59172, 7600 #### [facility] [address], [address] [place] [address] Executive Office Manager: Ck Wallis MD Cholesterol.total/ Cholesterol in HDL [Mass ratio] 6.3 {ratio} High <5.0 [facility] Comment on above: Order Comment: FASTI NG:YES FASTING: YES Performed By: #### 4 , 68268, 7600 #### [facility] [address], [address] [place] [address] Executive Office Manager: Ck Wallis MD LDL-CHOLESTEROL Normal [facility] [...] LDL-C. Nathan SS et al. KETTY. 2013;310(19): 5328-0382 (http://education.[employer]/faq/DEL602) Performed By: #### 4 , 80758, 7600 #### [facility] [address], [address] [place] [address] Executive Office Manager: Ck Wallis MD NON HDL CHOLESTEROL 208 mg/dL (calc) High <130 [facility] Comment on above: Order Comment: FASTI NG:YES FASTING: YES Result Comment: For patients with diabetes plus 1 major ASCVD risk factor, treating to a non-HDL-C goal of <100 mg/dL (LDL-C of <70 mg/dL) is considered a therapeutic option. Performed By: #### 4 , 96312, 7600 #### [facility] [address], [address] [place] [address] Executive Office Manager: Ck Wallis MD Triglyceride [Mass/Vol] 590 mg/dL High <150 [facility] Comment on above: Order Comment: FASTI NG:YES FASTING: YES Result Comment: If a non-fasting specimen was collected, consider repeat triglyceride testing on a fasting specimen if clinically indicated. Trever landin al. J. of Clin. Lipidol. 2015;9:129-169. There is increased risk of pancreatitis when the triglyceride concentration is very high (> or = 500 mg/dL, especially if > or = 1000 mg/dL). Perera et al. J. of Clin. Lipidol. 2015;9:129-169. Performed By: #### 4 96, 03504, 0480 #### [facility] [address] [facility], [address] [place] [address] Executive Office Manager: Ck Wallis MD US HARVEY DOP LEG RTon 12-20-19 US HARVEY DOP LEG RT Ultrasound venous [...] SAMI BRUNSON Date: 2021-12-19 09:12 Normal [facility] CBC AUTO DIFFon 12-18-2021 BASO # 0.0 103/ul Normal 0.0-0.1 [facility] Comment on above: Performed By: #### C BC #### [facility] [address] [address] [address] Cary Malagon Basophils/100 WBC (Bld) 0.3 % Normal 0.2-2.0 [facility] Comment on above: Performed By: #### C BC #### [facility] [address] [address] [address] Cary Malagon EO # 0.1 103/ul Normal 0.0-0.7 [facility] Comment on above: Performed By: #### C BC #### [facility] [address] [address] [address] Cary Malagon Eosinophils/100 WBC (Bld) 1.4 % Normal 0.9-7.0 [facility] Comment on above: Performed By: #### C BC #### [facility] [address] [place] [address] Dr. Cary Malagon Erythrocyte distribution width (RBC) [Ratio] 14.7 % Normal 11.0-15.0 [facility] Comment on above: Performed By: #### C BC #### [facility] [address] [place] [address] Dr. Cary Malagon Hematocrit (Bld) [Volume fraction] 37.7 % Critically low 42.0-54.0 [facility] Comment on above: Performed By: #### C BC #### [facility] [address] [place] [address] Dr. Cary Malagon Hemoglobin (Bld) [Mass/Vol] 12.8 g/dL Critically low 14.0-18.0 [facility] Comment on above: Performed By: #### C BC #### [facility] [address] [place] [address] Dr. Cary Malagon IG # 0.04 10e3/ul Critically high 0.00-0.03 [facility] Comment on above: Performed By: #### C BC #### [facility] [address] [place] [address] Dr. Cary Malagon IG % 0.4 % Normal 0.0-0.5 [facility] Comment on above: Performed By: #### C BC #### [facility] [address] [place] [address] Dr. Cary Malagon LYMPH # 1.4 103/ul Normal 1.2-3.8 [facility] Comment on above: Performed By: #### C BC #### [facility] [address] [place] [address] Dr. Cary Malagon Lymphocytes/100 WBC (Bld) 14.8 % Critically low 20.5-60.0 [facility] Comment on above: Performed By: #### C BC #### [facility] [address] [place] [address] Dr. Cary Malagon MANUAL DIFF REQ NO Normal [facility] Comment on above: Performed By: #### C BC #### [facility] [address] [address] [address] Cary Malagon MCH (RBC) [Entitic mass] 30.2 pg Normal 25.9-34.0 [facility] Comment on above: Performed By: #### C BC #### [facility] [address] [address] [address] Cary Malagon MCHC (RBC) [Mass/Vol] 34.0 g/dL Normal 29.9-35.2 [facility] Comment on above: Performed By: #### C BC #### [facility] [address] [address] [address] Cary Malagon MCV (RBC) [Entitic vol] 88.9 fL Normal 80.0-94.0 [facility] Comment on above: Performed By: #### C BC #### [facility] [address] [place] [address] Dr. Cary Malagon MONO # 1.0 103/ul Critically high 0.3-0.8 [facility] Comment on above: Performed By: #### C BC #### [facility] [address] [place] [address] Dr. Cary Malagon Monocytes/100 WBC (Bld) 10.8 % Normal 1.7-12.0 [facility] Comment on above: Performed By: #### C BC #### [facility] [address] [place] [address] Dr. Cary Malagon NEUT # 6.7 103/ul Critically high 1.4-6.5 [facility] Comment on above: Performed By: #### C BC #### [facility] [address] [place] [address] Dr. Cary Malagon Neutrophils/100 WBC (Bld) 72.3 % Normal 43.0-75.0 [facility] Comment on above: Performed By: #### C BC #### [facility] [address] [place] [address] Dr. Cary Malagon Platelet mean volume (Bld) [Entitic vol] 9.0 fL Critically low 9.5-13.5 [facility] Comment on above: Performed By: #### C BC #### [facility] [address] [address] [address] Cary Malagon PLT 242 103/ul Normal 150-450 [facility] Comment on above: Performed By: #### C BC #### [facility] [address] [address] [address] Cary Malagon RBC 4.24 106/ul Critically low 4.70-6.10 [facility] Comment on above: Performed By: #### C BC #### [facility] [address] [place] [address] Dr. Cary Malagon WBC 9.3 103/ul Normal 4.0-11.0 [facility] Comment on above: Performed By: #### C BC #### [facility] [address] [place] [address] Dr. Cary Malagon CULTURE BLOODon 12-18-2021 Microscopic examination of blood, culture Culture Observations: NO GROWTH AT 5 DAYS. Isolate 1 [id number] Normal [facility] Comment on above: Performed By: #### C BC #### [facility] [address] [place] [address] Dr. Cary Malagon D-DIMERon 12-18-2021 D-DIMER 3.78 mg/L FEU Critically high 0.19-0.50 [facility] Comment on above: Performed By: #### C MP #### [facility] [address] [place] [address] Dr. Cary Malagon D-DIMER COMMENTS SEE BELOW Normal [facility] Comment on above: Result Comment: Incr [...] hospitalization. Performed By: #### C MP #### [facility] [address] [place] [address] Dr. Cary Malagon PROF 14(COMP METB)on 022 Albumin [Mass/Vol] 3.4 g/dL Normal 3.4-5.0 [facility] Comment on above: Performed By: #### C MP #### [facility] [address] [place] [address] Dr. Cary Malagon Albumin/Globulin [Mass ratio] 0.9 {ratio} Normal [facility] Comment on above: Performed By: #### C MP #### [facility] [address] [place] [address] Dr. Cary Malagon ALP [Catalytic activity/Vol] 63 U/L Normal 46-116 [facility] Comment on above: Performed By: #### C MP #### [facility] [address] [place] [address] Dr. Cary Malagon ALT [Catalytic activity/Vol] 40 U/L Normal 16-63 [facility] Comment on above: Performed By: #### C MP #### [facility] [address] [place] [address] Dr. Cary Malagon Anion gap [Moles/Vol] 17.2 mmol/L Normal [facility] Comment on above: Performed By: #### C MP #### [facility] [address] [place] [address] Dr. Cary Malagon AST [Catalytic activity/Vol] 19 U/L Normal 15-37 [facility] Comment on above: Performed By: #### C MP #### [facility] [address] [place] [address] Dr. Cary Malagon Bilirubin [Mass/Vol] 0.4 mg/dL Normal 0.2-1.3 [facility] Comment on above: Performed By: #### C MP #### [facility] [address] [place] [address] Dr. Cary Malagon Calcium [Mass/Vol] 8.7 mg/dL Normal 8.5-10.1 [facility] Comment on above: Performed By: #### C MP #### [facility] [address] [place] [address] Dr. Cary Malagon Chloride [Moles/Vol] 99 mmol/L Normal 98-107 [facility] Comment on above: Performed By: #### C MP #### [facility] [address] [address] [address] Cary Malagon CO2 [Moles/Vol] 22.0 mmol/L Normal 22.0-30.0 [facility] Comment on above: Performed By: #### C MP #### [facility] [address] [address] [address] Cary Malagon Creatinine [Mass/Vol] 1.26 mg/dL Critically high 0.66-1.25 [facility] Comment on above: Performed By: #### C MP #### [facility] [address] [place] [address] Dr. Cary Malagon EGFR-AF ALBANIAN >60 Normal >=60 [facility] Comment on above: Performed By: #### C MP #### [facility] [address] [address] [address] Cary Malagon EGFR-NON AF ALBANIAN 58 mL/min/1.73m2 Critically low >=60 [facility] Comment on above: Performed By: #### C MP #### [facility] [address] [address] [address] Cary Malagon Globulin (S) [Mass/Vol] 3.9 g/dL Normal [facility] Comment on above: Performed By: #### C MP #### [facility] [address] [address] [address] Cary Malagon Glucose [Mass/Vol] 272 mg/dL Critically high 74-106 [facility] Comment on above: Performed By: #### C MP #### [facility] [address] [address] [address] Cary Malagon Potassium [Moles/Vol] 3.2 mmol/L Critically low 3.4-5.0 [facility] Comment on above: Performed By: #### C MP #### [facility] [address] [address] [address] Cary Malagon Protein [Mass/Vol] 7.3 g/dL Normal 6.1-8.2 [facility] Comment on above: Performed By: #### C MP #### [facility] [address] [address] [address] Cary Malagon Sodium [Moles/Vol] 135 mmol/L Critically low 137-145 [facility] Comment on above: Performed By: #### C MP #### [facility] [address] [address] [address] Cary Malgaon Urea nitrogen [Mass/Vol] 25.0 mg/dL Critically high 7.0-18.0 [facility] Comment on above: Performed By: #### C MP #### [facility] [address] [place] [address] Dr. Cary Malagon Urea nitrogen/Creatinin e [Mass ratio] 19.8 mg/mg Normal [facility] Comment on above: Performed By: #### C MP #### [facility] [address] [place] [address] Dr. Cary Malagon ALBUMIN, RANDOM URINE W/CREA Alan 12-12-2021 ALBUMIN, URINE 1.2 mg/dL Normal See Note: [email or web address] Comment on above: Result Comment: Refe renkwame Range: Reference Range Not established Performed By: #### 4 96, 33301, 0646, 4170 #### [facility] [address], [address] [place], [place] [id number] Executive Office Manager: Ck Wallis MD ALBUMIN/CREATININE RATIO, RANDOM URINE [...] diagnostic category. Performed By: #### 4 96, 45294, 6517, 7600 #### [facility] [address], [address] [place] [id number] Executive Office Manager: Ck Wallis MD Creatinine (U) [Mass/Vol] 112 mg/dL Normal 20-320 [facility] Comment on above: Performed By: #### 4 96, 29494, 6517, 7600 #### [facility] [address] [address] Executive Office Manager: Ck Wallis MD [facility] 12-12-2021 Albumin [Mass/Vol] 4.6 g/dL Normal 3.6-5.1 [facility] Comment on above: Performed By: #### 4 96, 93863, 6517, 7600 #### [facility] [address] [address] Executive Office Manager: Ck Wallis MD Albumin/Globulin [Mass ratio] 1.7 {ratio} Normal 1.0-2.5 [facility] Comment on above: Performed By: #### 4 96, 96216, 6517, 7600 #### [facility] [address] [address] Executive Office Manager: Ck Wallis MD ALP [Catalytic activity/Vol] 43 U/L Normal 35-144 [facility] Comment on above: Performed By: #### 4 96, 33512, 6517, 7600 #### [facility] [address] [address] Executive Office Manager: Ck Wallis MD ALT [Catalytic activity/Vol] 22 U/L Normal 9-46 [facility] Comment on above: Performed By: #### 4 96, 14741, 6517, 7600 #### [facility] [address] [address] Executive Office Manager: Ck Wallis MD AST [Catalytic activity/Vol] 15 U/L Normal 10-35 [facility] Comment on above: Performed By: #### 4 96, 58845, 6517, 7600 #### [facility] [address] [address] Executive Office Manager: Ck Wallis MD Bilirubin [Mass/Vol] 0.5 mg/dL Normal 0.2-1.2 [facility] Comment on above: Performed By: #### 4 96, 93011, 6517, 7600 #### [facility] [address] [address] Executive Office Manager: kC Wallis MD BUN/CREATININE RATIO NOT APPLICABLE Normal 6-22 [facility] Comment on above: Performed By: #### 4 96, 73893, 6517, 7600 #### [facility] [address] [address] Executive Office Manager: Ck Wallis MD Calcium [Mass/Vol] 9.3 mg/dL Normal 8.6-10.3 [facility] Comment on above: Performed By: #### 4 96, 68238, 65, 7600 #### [facility] [address] [address] Executive Office Manager: Ck Wallis MD Chloride [Moles/Vol] 102 mmol/L Normal 98-110 [facility] Comment on above: Performed By: #### 4 96, 12748, 6517, 7600 #### [facility] [address] [address] Executive Office Manager: Ck Wallis MD CO2 [Moles/Vol] 27 mmol/L Normal 20-32 [facility] Comment on above: Performed By: #### 4 96, 95214, 6517, 7600 #### [facility] [address] [address] Executive Office Manager: Ck Wallis MD Creatinine [Mass/Vol] 1.05 mg/dL Normal 0.70-1.25 [facility] Comment on above: Result Comment: For patients >49 years of age, the reference limit for Creatinine is approximately 13% higher for people identified as -Mauritian. Performed By: #### 4 96, 87833, 6517, 7600 #### [facility] [address] [address] Executive Office Manager: Ck Wallis MD eGFR NON-AFR. ALBANIAN 75 mL/min/1.73m2 Normal > OR = 60 [facility] Comment on above: Performed By: #### 4 96, , 65, 7600 #### [facility] [address] [address] Executive Office Manager: Ck Wallis MD GFR/1.73 sq M.predicted among blacks MDRD (S/P/Bld) [Vol rate/Area] 87 mL/min/{1.73_m2} Normal > OR = 60 [facility] Comment on above: Performed By: #### 4 96, , 65, 7600 #### [facility] [address] [address] Executive Office Manager: Ck Wallis MD Globulin (S) [Mass/Vol] 2.7 g/dL Normal 1.9-3.7 [facility] Comment on above: Performed By: #### 4 , , 6516, 7600 #### [facility] [address] [address] Executive Office Manager: Ck Wallis MD Glucose [Mass/Vol] 144 mg/dL High 65-99 [facility] Comment on above: Result Comment: Fasting reference interval For someone without known diabetes, a glucose value >125 mg/dL indicates that they may have diabetes and this should be confirmed with a follow-up test. Performed By: #### 4 , , 65, 7600 #### [facility] [address] [address] Executive Office Manager: Ck Wallis MD Potassium [Moles/Vol] 3.9 mmol/L Normal 3.5-5.3 [facility] Comment on above: Performed By: #### 4 96, 45096, 65, 7600 #### [facility] [address] [address] Executive Office Manager: Ck Wallis MD Protein [Mass/Vol] 7.3 g/dL Normal 6.1-8.1 [facility] Comment on above: Performed By: #### 4 96, , 65, 7600 #### [facility] [address], [address] [place] [address] Executive Office Manager: Ck Wallis MD Sodium [Moles/Vol] 138 mmol/L Normal 135-146 [facility] Comment on above: Performed By: #### 4 96, 70526, 6517, 7600 #### [facility] [address], [address] [place] [address] Executive Office Manager: Ck Wallis MD Urea nitrogen [Mass/Vol] 19 mg/dL Normal 7-25 [facility] Comment on above: Performed By: #### 4 96, 81534, 6517, 7600 #### [facility] [address], [address] [place] [address] Executive Office Manager: Ck Wallis MD HEMOGLOBIN A1con 12-12-2021 HEMOGLOBIN [...] for children. Performed By: #### 4 96, 78407, 6517, 7600 #### [facility] [address], [address] [place] [address] Executive Office Manager: Ck Wallis MD LIPID PANEL, STANDARDon 12-02 Cholesterol [Mass/Vol] 263 mg/dL High <200 [facility] Comment on above: Order Comment: FASTI NG:YES FASTING: YES Performed By: #### 4 96, 48301, 6517, 7600 #### [facility] [address], [address] [place] [address] Executive Office Manager: Ck Wallis MD Cholesterol in HDL [Mass/Vol] 46 mg/dL Normal > OR = 40 [facility] Comment on above: Order Comment: FASTI NG:YES FASTING: YES Performed By: #### 4 96, 87120, 6517, 7600 #### [facility] [address], [address] [place] [address] Executive Office Manager: Ck Wallis MD Cholesterol in LDL [Mass/Vol] [...] equation in the estimation of LDL-C. Nathan ARENAS et al. KETTY. 2013;310(19): 6994-4330 (http://education.Graze.Prosonix/faq/RJH621) Performed By: #### 4 96, 81177, 6517, 7600 #### [facility] [address], [address] [place] [address] Executive Office Manager: Ck Wallis MD Cholesterol.total/ Cholesterol in HDL [Mass ratio] 5.7 {ratio} High <5.0 [facility] Comment on above: Order Comment: FASTI NG:YES FASTING: YES Performed By: #### 4 96, 08605, 6517, 7600 #### [facility] [address], [address] [place] [address] Executive Office Manager: Ck Wallis MD NON HDL CHOLESTEROL 217 mg/dL (calc) High <130 [facility] Comment on above: Order Comment: FASTI NG:YES FASTING: YES Result Comment: For patients with diabetes plus 1 major ASCVD risk factor, treating to a non-HDL-C goal of <100 mg/dL (LDL-C of <70 mg/dL) is considered a therapeutic option. Performed By: #### 4 96, 95155, 6517, 7600 #### [facility] [address], [address] [place] [address] Executive Office Manager: Ck Wallis MD Triglyceride [Mass/Vol] 168 mg/dL High <150 [facility] Comment on above: Order Comment: FASTI NG:YES FASTING: YES Performed By: #### 4 96, 45966, 4176, 0033 #### [facility] [address], [address] [place] [address] Executive Office Manager: Ck Manjarrez 11-23-2021 [facility] [address] [place] [id number] Office Visit Report Signed Patient Name: Tom Khan 0 Date of : 1955 Age/Sex: 66 / M Date of Service: Location: [facility] Behavioral Health Outpt Attending physician: Apolinar [...] Sunday where he told one of the yazidi members to pray for him that he wanted to do himself and. The yazidi member was alarmed and went to the supervisor smoke control who is meeting with the board and inform them of what was going on. Patient was assessed at ED and renewed mind. They also talked with Richie at [facility] [place] He does not feel like he is ready for IOP noted anything that IOP would be the answer this time. Informed them if they did want to continue with IOP that they could contact Richie since a [...] at least half the appointment before including Barb. Santos seems to talk better without her present [...] Signed By: 11/23/211548 Cosigned By (if applicable): [id number] cc: TI Harrington Normal [facility] Acetaminophenon 11-20-2021 Acetaminophen [Mass/Vol] ug/mL Normal 0.0-30.0 [facility] Comment on above: Performed By: #### C BC, ALCBLD, CMP, TSHRFLX, UDS, ALYSSA, ACET #### [facility] [address], [place] [address] Acetaminophen level (mass/vo lume)on 11-20-2021 Acetaminophen (Unsp spec) [Mass/Vol] < 10.0 mcg/mL 0.0-30.0 [facility] Work Phone: Albumin measurement (mass/vo lume)on 11-20-2021 Albumin (Unsp spec) [Mass/Vol] 4.8 g/dL 3.5-5.0 [facility] Work Phone: Alcohol Bloodon 11-20-2021 Alcohol Blood < 10.00 Normal 0.0-10.00 [facility] Comment on above: Performed By: #### C BC, ALCBLD, CMP, TSHRFLX, UDS, ALYSSA, ACET #### [facility] [address], [place] [address] Amphetamine Screen Ql (U)on 11-20-2021 Amphetamines Ql (U) Negative Negative [facility] Work Phone: Bacteria detection in urine sediment by light microscopyon 11-20-2021 Bacteria LM Ql (Urine sed) Trace [facility] Work Phone: Basophil percentageon 2021 Hemoglobin (Bld) [Mass/Vol] 14.5 g/dL 13.8-17.8 [facility] Work Phone: Basophils Auto (Bld) [#/Vol] on 11-20-2021 Basophils (Bld) [#/Vol] 0.0859 10*3/uL 0.0-0.3 [facility] Work Phone: Basophils/100 WBC Auto (Bld) on 11-20-2021 Basophils/100 WBC (Bld) 1.039 % 0.0-3.0 [facility] Work Phone: Benzodiazepines Screen Ql (U )on 11-20-2021 Benzodiazepines Ql (U) Negative Negative [facility] Work Phone: Blood anion gapon 11-20-2021 Anion gap (Bld) [Moles/Vol] 14.5 mmol/L [facility] Work Phone: Blood erythrocytes count (nu mber/volume)on 11-20-2021 RBC (Bld) [#/Vol] 4.81 10*6/uL 4.70-6.10 [facility] Work Phone: Blood leukocytes count (numb er/volume)on 11-20-2021 WBC (Bld) [#/Vol] 8.3 Thou/mL3 4.8-10.8 [facility] Work Phone: Blood platelet counton 11-20 Platelets (Bld) [#/Vol] 301.2 Thou/mm3 130-400 [facility] Work Phone: Blood total protein measurem enton 11-20-2021 Protein [Mass/Vol] 8.0 g/dL 6.3-8.2 [facility] Work Phone: Calcium measurement (mass/vo lume)on 11-20-2021 Calcium (Unsp spec) [Mass/Vol] 9.4 mg/dL 8.4-10.2 [facility] Work Phone: Chloride measurement (mass/v olume)on 11-20-2021 Chloride (Unsp spec) [Mass/Vol] 103 mmol/L 98-120 [facility] Work Phone: Cocaine Screen Ql (U)on 11-02 Cocaine Ql (U) Negative Negative [facility] Work Phone: Complete Blood Count Auto Di ffon 11-20-2021 Basophils Absolute Auto 0.0859 Normal 0.0-0.3 [facility] Comment on above: Performed By: #### C BC, ALCBLD, CMP, TSHRFLX, UDS, ALYSSA, ACET #### [address] [address] Basophils Percent Auto 1.039 Normal 0.0-3.0 [facility] Comment on above: Performed By: #### C BC, ALCBLD, CMP, TSHRFLX, UDS, ALYSSA, ACET #### [address] [address] Eosinophils Absolute Auto 0.0993 Normal 0.0-1.1 [facility] Comment on above: Performed By: #### C BC, ALCBLD, CMP, TSHRFLX, UDS, ALYSSA, ACET #### [address] [address] Eosinophils Percent Auto 1.201 Normal 0.0-10.0 [facility] Comment on above: Performed By: #### C BC, ALCBLD, CMP, TSHRFLX, UDS, ALYSSA, ACET #### [address] [address] Erythrocyte distribution width (RBC) [Ratio] 13.5 % Normal 10.0-15.5 [facility] Comment on above: Performed By: #### C BC, ALCBLD, CMP, TSHRFLX, UDS, ALYSSA, ACET #### [address] [address] Hematocrit (Bld) [Volume fraction] 44.0 % Normal 42.0-52.0 [facility] Comment on above: Performed By: #### C BC, ALCBLD, CMP, TSHRFLX, UDS, ALYSSA, ACET #### [address] [address] Hemoglobin (Bld) [Mass/Vol] 14.5 g/dL Normal 13.8-17.8 [facility] Comment on above: Performed By: #### C BC, ALCBLD, CMP, TSHRFLX, UDS, ALYSSA, ACET #### [address] [address] Lymphocytes Absolute Auto 1.802 Normal 1.0-5.5 [facility] Comment on above: Performed By: #### C BC, ALCBLD, CMP, TSHRFLX, UDS, ALYSSA, ACET #### [address] [address] Lymphocytes Percent Auto 21.80 Normal 20-51.1 [facility] Comment on above: Performed By: #### C BC, ALCBLD, CMP, TSHRFLX, UDS, ALYSSA, ACET #### [address] [address] MCH (RBC) [Entitic mass] 30.1 pg Normal 28.5-32.5 [facility] Comment on above: Performed By: #### C BC, ALCBLD, CMP, TSHRFLX, UDS, ALYSSA, ACET #### [address] [address] MCV (RBC) [Entitic vol] 91.3 fL Normal 80.0-94.0 [facility] Comment on above: Performed By: #### C BC, ALCBLD, CMP, TSHRFLX, UDS, ALYSSA, ACET #### [address] [address] Mean Corpuscular HGB Conc 33.0 g/dL Normal 32.0-37.0 [facility] Comment on above: Performed By: #### C BC, ALCBLD, CMP, TSHRFLX, UDS, ALYSSA, ACET #### [address] [address] Monocytes Absolute Auto 0.6828 Normal 0.1-1.0 [facility] Comment on above: Performed By: #### C BC, ALCBLD, CMP, TSHRFLX, UDS, ALYSSA, ACET #### [address] [address] Monocytes Percent Auto 8.261 Normal 1.7-9.3 [facility] Comment on above: Performed By: #### C BC, ALCBLD, CMP, TSHRFLX, UDS, ALYSSA, ACET #### [address] [address] Neutrophils Absolute Auto 5.595 Normal 2.0-8.1 [facility] Comment on above: Performed By: #### C BC, ALCBLD, CMP, TSHRFLX, UDS, ALYSSA, ACET #### [address] [address] Neutrophils Percent Auto 67.70 Normal 42.2-75.2 [facility] Comment on above: Performed By: #### C BC, ALCBLD, CMP, TSHRFLX, UDS, ALYSSA, ACET #### [address] [address] Platelet Count 301.2 Thou/mm3 Normal 130-400 [facility] Comment on above: Performed By: #### C BC, ALCBLD, CMP, TSHRFLX, UDS, ALYSSA, ACET #### [address] [address] RBC (Bld) [#/Vol] 4.81 10*6/uL Normal 4.70-6.10 [facility] Comment on above: Performed By: #### C BC, ALCBLD, CMP, TSHRFLX, UDS, ALYSSA, ACET #### [address] [address] White Blood Count 8.3 Thou/mL3 Normal 4.8-10.8 [facility] Comment on above: Performed By: #### C BC, ALCBLD, CMP, TSHRFLX, UDS, ALYSSA, ACET #### [address] [address] Comprehensive Metabolic Pane néstor 11-20-2021 Anion gap [Moles/Vol] 14.5 mmol/L Normal [facility] Comment on above: Performed By: #### C BC, ALCBLD, CMP, TSHRFLX, UDS, ALYSSA, ACET #### [address] [address] Alanine Aminotransferase V 33 units/L Normal 4-50 [facility] Comment on above: Performed By: #### C BC, ALCBLD, CMP, TSHRFLX, UDS, ALYSSA, ACET #### [address] [address] Albumin [Mass/Vol] 4.8 g/dL Normal 3.5-5.0 [facility] Comment on above: Performed By: #### C BC, ALCBLD, CMP, TSHRFLX, UDS, ALYSSA, ACET #### [address] [address] Albumin Globulin Ratio 1.5 g/dL Normal [facility] Comment on above: Performed By: #### C BC, ALCBLD, CMP, TSHRFLX, UDS, ALYSSA, ACET #### [address] [address] Alkaline Phosphatase 53 units/L Normal 38-126 [facility] Comment on above: Performed By: #### C BC, ALCBLD, CMP, TSHRFLX, UDS, ALYSSA, ACET #### [address] [address] Aspartate Amino Transferase 25 units/L Normal 17-59 [facility] Comment on above: Performed By: #### C BC, ALCBLD, CMP, TSHRFLX, UDS, ALYSSA, ACET #### [address] [address] Bilirubin [Mass/Vol] 0.5 mg/dL Normal 0.2-1.3 [facility] Comment on above: Performed By: #### C BC, ALCBLD, CMP, TSHRFLX, UDS, ALYSSA, ACET #### [address] [address] Calcium [Mass/Vol] 9.4 mg/dL Normal 8.4-10.2 [facility] Comment on above: Performed By: #### C BC, ALCBLD, CMP, TSHRFLX, UDS, ALYSSA, ACET #### [address] [address] Chloride [Moles/Vol] 103 mmol/L Normal 98-120 [facility] Comment on above: Performed By: #### C BC, ALCBLD, CMP, TSHRFLX, UDS, ALYSSA, ACET #### [address] [address] CO2 [Moles/Vol] 22 mmol/L Normal 22-31 [facility] Comment on above: Performed By: #### C BC, ALCBLD, CMP, TSHRFLX, UDS, ALYSSA, ACET #### [address] [address] Creatinine [Mass/Vol] 1.0 mg/dL Normal 0.7-1.3 [facility] Comment on above: Performed By: #### C BC, ALCBLD, CMP, TSHRFLX, UDS, ALYSSA, ACET #### [address] [address] Creatinine Clr Calc Pharmacy 79.4833 Normal [facility] Comment on above: Performed By: #### C BC, ALCBLD, CMP, TSHRFLX, UDS, ALYSSA, ACET #### [address] [address] Globulin (S) [Mass/Vol] 3.3 g/dL Normal [facility] Comment on above: Performed By: #### C BC, ALCBLD, CMP, TSHRFLX, UDS, ALYSSA, ACET #### [address] [address] Glomerular Filtration Rate > 60.0 Normal [facility] Comment on above: Performed By: #### C BC, ALCBLD, CMP, TSHRFLX, UDS, ALYSSA, ACET #### [address] [address] Glucose [Mass/Vol] 138 mg/dL High 75-110 [facility] Comment on above: Performed By: #### C BC, ALCBLD, CMP, TSHRFLX, UDS, ALYSSA, ACET #### [address] [address] Potassium [Moles/Vol] 3.5 mmol/L Low 3.6-5.0 [facility] Comment on above: Performed By: #### C BC, ALCBLD, CMP, TSHRFLX, UDS, ALYSSA, ACET #### [address] [address] Protein [Mass/Vol] 8.0 g/dL Normal 6.3-8.2 [facility] Comment on above: Performed By: #### C BC, ALCBLD, CMP, TSHRFLX, UDS, ALYSSA, ACET #### [address] [address] Sodium [Moles/Vol] 136 mmol/L Normal 135-145 [facility] Comment on above: Performed By: #### C BC, ALCBLD, CMP, TSHRFLX, UDS, ALYSSA, ACET #### [place] [address] Urea nitrogen [Mass/Vol] 21 mg/dL High 9-20 [facility] Comment on above: Performed By: #### C BC, ALCBLD, CMP, TSHRFLX, UDS, ALYSSA, ACET #### [address] [address] Drug Screen Urineon 11-21-19 22 Amphetamine Screen Urine Negative Normal Negative [facility] Comment on above: Performed By: #### C BC, ALCBLD, CMP, TSHRFLX, UDS, ALYSSA, ACET #### [address] [address] Benzodiazepines Screen Urine Negative Normal Negative [facility] Comment on above: Performed By: #### C BC, ALCBLD, CMP, TSHRFLX, UDS, ALYSSA, ACET #### [address] [address] Cannabinoid Screen Urine Negative Normal Negative [facility] Comment on above: Performed By: #### C BC, ALCBLD, CMP, TSHRFLX, UDS, ALYSSA, ACET #### [address] [address] Cocaine Screen Urine Negative Normal Negative [facility] Comment on above: Performed By: #### C BC, ALCBLD, CMP, TSHRFLX, UDS, ALYSSA, ACET #### [address] [address] Opiate Screen Urine Negative Normal Negative [facility] Comment on above: Performed By: #### C BC, ALCBLD, CMP, TSHRFLX, UDS, ALYSSA, ACET #### [address] [address] Oxycodone Urine Negative Normal Negative [facility] Comment on above: Result Comment: Scre [...] ALCBLD, CMP, TSHRFLX, UDS, ALYSSA, ACET #### [address] [address] Phencyclidine Screen Urine Negative Normal Negative [facility] Comment on above: Performed By: #### C BC, ALCBLD, CMP, TSHRFLX, UDS, ALYSSA, ACET #### [address] [address] Tricyclic Antidepressant Urine Negative Normal Negative [facility] Comment on above: Performed By: #### C BC, ALCBLD, CMP, TSHRFLX, UDS, ALYSSA, ACET #### [address] [address] Urine Barbiturate Screen Negative Normal Negative [facility] Comment on above: Performed By: #### C BC, ALCBLD, CMP, TSHRFLX, UDS, ALYSSA, ACET #### [address] [address] Eosinophils Auto (Bld) [#/Vo l]on 11-20-2021 Eosinophils (Bld) [#/Vol] 0.0993 10*3/uL 0.0-1.1 [facility] Work Phone: Eosinophils/100 WBC Auto (Bl d)on 11-20-2021 Eosinophils/100 WBC (Bld) 1.201 % 0.0-10.0 [facility] Work Phone: Erythrocyte distribution wid th Auto (RBC) [Ratio]on 11-20-2021 Erythrocyte distribution width (RBC) [Ratio] 13.5 % 10.0-15.5 [facility] Work Phone: Glomerular filtration rate ( GFR) estimation/1.73 sq m using serum, plasma, or whole bon 11-20-2021 GFR/1.73 sq M.predicted CKD-EPI (S/P/Bld) [Vol rate/Area] > 60.0 [facility] Work Phone: Laboratory - Chemistry and C hemistry - challengeon 11-20-2021 pH (U) 6.0 [pH] 5.0-8.5 [facility] Work Phone: Laboratory - Hematology and Cell countson 11-20-2021 Hemoglobin Ql (U) Negative Negative [facility] Work Phone: Lymphocytes (Bld) [#/Vol] 1.802 10*3/uL 1.0-5.5 [facility] Work Phone: Neutrophils (Bld) [#/Vol] 5.595 10*3/uL 2.0-8.1 [facility] Work Phone: Laboratory - Urinalysison Crystals LM Nom (Urine sed) Absent [facility] Work Phone: MCH Auto (RBC) [Entitic mass ]on 11-20-2021 MCH (RBC) [Entitic mass] 30.1 pg 28.5-32.5 [facility] Work Phone: MCHC Auto (RBC) [Mass/Vol]on 11-20-2021 MCHC (RBC) [Mass/Vol] 33.0 g/dL 32.0-37.0 [facility] Work Phone: MCV (mean corpuscular volume ) determinationon 11-20-2021 MCV (RBC) [Entitic vol] 91.3 fL 80.0-94.0 [facility] Work Phone: Monocytes Auto (Bld) [#/Vol] on 11-20-2021 Monocytes (Bld) [#/Vol] 0.6828 10*3/uL 0.1-1.0 [facility] Work Phone: Monocytes/100 WBC Auto (Bld) on 11-20-2021 Monocytes/100 WBC (Bld) 8.261 % 1.7-9.3 [facility] Work Phone: Mucus LM Ql (Urine sed)on Mucus Ql (Urine sed) Absent [facility] Work Phone: Neutrophils/100 WBC Auto (Bl d)on 11-20-2021 Neutrophils/100 WBC (Bld) 67.70 % 42.2-75.2 [facility] Work Phone: Nitrite Test strip Ql (U)on 11-20-2021 Nitrite Ql (U) Negative Negative [facility] Work Phone: No Panel Informationon 11-20 Urine Casts Absent [facility] Work Phone: Urine RBC Absent 0-2 [facility] Work Phone: Lymphocytes (%) (Auto) 21.80 20-51.1 [facility] Work Phone: Pharmacy Creatinine Clearance (Chem 79.4833 [facility] Work Phone: Plasma/Serum Blood Alcohol < 10.00 mg/dL 0.0-10.00 [facility] Work Phone: Phencyclidine Screen Ql (U)o n 11-20-2021 Phencyclidine Ql (U) Negative Negative [facility] Work Phone: Salicylateon 11-20-2021 Salicylate < 1.0 Normal 0-20 [facility] Comment on above: Performed By: #### C BC, ALCBLD, CMP, TSHRFLX, UDS, ALYSSA, ACET #### [place] [address] Screening urine barbiturate detectionon 11-20-2021 Barbiturates Screen Ql (U) Negative Negative [facility] Work Phone: Screening urine opiates dete ctionon 11-20-2021 Opiates Screen Ql (U) Negative Negative [facility] Work Phone: Serum creatinine measurement (mass/volume)on 11-20-2021 Creatinine [Mass/Vol] 1.0 mg/dL 0.7-1.3 [facility] Work Phone: Serum globulin measurement ( mass/volume)on 11-20-2021 Globulin (S) [Mass/Vol] 3.3 g/dL [facility] Work Phone: Serum or plasma alanine riley otransferase measurement (enzymatic activity/volume)on 11-20-2021 ALT [Catalytic activity/Vol] 25 units/L 17-59 [facility] Work Phone: ALT [Catalytic activity/Vol] 33 units/L 4-50 [facility] Work Phone: Serum or plasma albumin/glob ulin mass ratioon 11-20-2021 Albumin/Globulin [Mass ratio] 1.5 g/dL [facility] Work Phone: Serum or plasma alkaline dom sphatase measurementon 11-20-2021 ALP [Catalytic activity/Vol] 53 units/L 38-126 [facility] Work Phone: Serum or plasma bilirubin me asurement (mass/volume)on 11-20-2021 Bilirubin [Mass/Vol] 0.5 mg/dL 0.2-1.3 [facility] Work Phone: Serum or plasma carbon dioxi de measurement (moles/volume)on 11-20-2021 CO2 [Moles/Vol] 22 mmol/L 22-31 [facility] Work Phone: Serum or plasma glucose carol urement (mass/volume)on 11-20-2021 Glucose [Mass/Vol] 138 mg/dL High 75-110 [facility] Work Phone: Serum or plasma salicylates detectionon 11-20-2021 Salicylates Ql < 1.0 mg/dL 0-20 [facility] Work Phone: Serum or plasma thyroid stim ulating hormone (TSH) measurementon 11-20-2021 TSH Qn 0.65 mIU/mL 0.49-4.67 [facility] Work Phone: Serum or plasma urea nitroge n measurement (mass/volume)on 11-20-2021 Urea nitrogen [Mass/Vol] 21 mg/dL High 9-20 [facility] Work Phone: Serum, plasma, or blood pota ssium measurement (moles/volume)on 11-20-2021 Potassium (S/P/Bld) [Moles/Vol] 3.5 mmol/L Low 3.6-5.0 [facility] Work Phone: Serum, plasma, or whole bloo d sodium measurement (moles/volume)on 11-20-2021 Sodium (S/P/Bld) [Moles/Vol] 136 mmol/L 135-145 [facility] Work Phone: Squamous epithelial cells de tection in urine sediment by light microscopyon 11-20-2021 Epithelial cells.squamous LM Ql (Urine sed) 0-2 [facility] Work Phone: TSH with FT4 reflexon 2021 TSH with FT4 reflex 0.65 mIU/mL Normal 0.49-4.67 [facility] Comment on above: Performed By: #### C BC, ALCBLD, CMP, TSHRFLX, UDS, ALYSSA, ACET #### [address] [address] Urinalysis and Microscopicon 11-20-2021 Bacteria Urine Trace Normal [facility] Comment on above: Performed By: #### U AMIC #### [address] [address] Casts Urine Absent Normal [facility] Comment on above: Performed By: #### U AMIC #### [address] [address] Mucus Urine Absent Normal [facility] Comment on above: Performed By: #### U AMIC #### [facility] [address], [place] [address] Trichomonas Urine Absent Normal [facility] Comment on above: Performed By: #### U AMIC #### [facility] [address], [place] [address] Urine Red Blood Cells Absent Normal 0-2 [facility] Comment on above: Performed By: #### U AMIC #### [facility] [address], [place] [address] Urine White Blood Cells Absent Normal 0-4 [facility] Comment on above: Performed By: #### U AMIC #### [facility] [address], [place] [address] Yeast Urine Absent Normal [facility] Comment on above: Performed By: #### U AMIC #### [facility] [address], [place] [address] Crystals Urine Absent Normal [facility] Comment on above: Performed By: #### U AMIC #### [facility] [address], [place] [address] Squamous Epithelial Cell Urine 0-2 Normal [facility] Comment on above: Performed By: #### U AMIC #### [facility] [address], [place] [address] Clarity (U) Clear Normal Clear [facility] Comment on above: Performed By: #### U AMIC #### [facility] [address], [place] [address] Color (U) Yellow Normal Yellow [facility] Comment on above: Performed By: #### U AMIC #### [facility] [address], [place] [address] Bilirubin Urine Negative Normal Negative [facility] Comment on above: Performed By: #### U AMIC #### [facility] [address], [place] [address] Blood Urine Negative Normal Negative [facility] Comment on above: Performed By: #### U AMIC #### [facility] [address], [place] [address] Glucose Urine UA Negative Normal Negative [facility] Comment on above: Performed By: #### U AMIC #### [facility] [address], [place] [address] Ketones Ql (U) Negative Normal Negative [facility] Comment on above: Performed By: #### U AMIC #### [facility] [address], [place] [address] Leukocyte esterase Test strip Ql (U) Negative Normal Negative [facility] Comment on above: Performed By: #### U AMIC #### [facility] [address], [place] [address] Nitrite Urine Negative Normal Negative [facility] Comment on above: Performed By: #### U AMIC #### [facility] [address], [place] [address] pH (U) 6.0 [pH] Normal 5.0-8.5 [facility] Comment on above: Performed By: #### U AMIC #### [facility] [address], [place] [address] Specific [place] Urine 1.025 mg/dL Normal 1.005-1.030 [facility] Comment on above: Performed By: #### U AMIC #### [facility] [address], [place] [address] Urine Protein Dip Trace Normal Negative [facility] Comment on above: Performed By: #### U AMIC #### [facility] [address], [place] [address] Urobilinogen Urine 0.2 mg/dL Normal 0.2-1.0 [facility] Comment on above: Performed By: #### U AMIC #### [facility] [address], [place] [address] Urine Trichomonas species de tection by light microscopyon 11-20-2021 Trichomonas sp LM Ql (U) Absent [facility] Work Phone: Urine cannabinoids detection by screening methodon 11-20-2021 Cannabinoids Screen Ql (U) Negative Negative [facility] Work Phone: Urine clarityon 11-20-2021 Clarity (U) Clear Clear [facility] Work Phone: Urine coloron 11-20-2021 Color (U) Yellow Yellow [facility] Work Phone: Urine glucose detectionon Glucose Ql (U) Negative Negative [facility] Work Phone: Urine ketones detectionon Ketones Ql (U) Negative Negative [facility] Work Phone: Urine leukocyte esterase det ection by automated test stripon 11-20-2021 Leukocyte esterase Auto test strip Ql (U) Negative Negative [facility] Work Phone: Urine leukocytes detection b y microscopyon 11-20-2021 WBC Visual Ql (U) Absent 0-4 [facility] Work Phone: Urine oxycodone measurement by confirmatory method (mass/volume)on 11-20-2021 oxyCODONE Confirm (U) [Mass/Vol] Negative Negative [facility] Work Phone: Comment on above: Screening Technology [...] test strip Ql (U) Trace mg/dL Negative [facility] Work Phone: Urine specific gravity measu rementon 11-20-2021 Specific gravity (U) [Rel density] 1.025 mg/dL 1.005-1.030 [facility] Work Phone: Urine total bilirubin detect ionon 11-20-2021 Bilirubin Ql (U) Negative Negative [facility] Work Phone: Urine tricyclic antidepressa nt measurementon 11-20-2021 Tricyclic antidepressants (U) [Mass/Vol] Negative Negative [facility] Work Phone: Urine urobilinogen measureme nton 11-20-2021 Urobilinogen Ql (U) 0.2 mg/dL 0.2-1.0 [facility] Work Phone: Urine yeast-like organism de tectionon 11-20-2021 Fungi.yeastlike LM Ql (Urine sed) Absent [facility] Work Phone: Whole blood hematocriton Hematocrit (Bld) [Volume fraction] 44.0 % 42.0-52.0 [facility] Work Phone: A.OFFVISon 11-10-2021 A.OFFVIS [facility] [address] [place] [address] Office Visit Report Signed Patient Name: Tom Khan 0 Date of : 1955 Age/Sex: 66 / M Date of Service: Location: [facility] Behavioral Health Outpt Attending physician: Karen [...] History of Sexual Abuse: No 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 oTm Khan is a 66 year old male [...] and w (more content not included)... Normal [facility] Loki 10-31-2021 [facility] [address] [place], [place] [id number] Office Visit Report Signed Patient Name: Tom Khan 0 Date of : 1955 Age/Sex: 66 / M Date of Service: Location: [facility] Behavioral Health Outpt Attending physician: Apolinar [...] occasion. 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 He has a couple of things he is looking forward to and that is the establishment of meant of a men's group at [employer] and that seems positive for him. A couple of times during session he would report I'm still thinking about the 'F 'word and therapist reminded him that we were not going to discuss that and patient was able to move on. While it was still obviously in his thoughts he was able to refrain from that discussion. So encouraging him to explore some prison options for productivity and activity. 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 Normal [facility] Loki 10-03-2021 [facility] [address] [place] [address] Office Visit Report Signed Patient Name: Tom Khan 0 Date of : 1955 Age/Sex: 66 / M Date of Service: Location: [facility] Behavioral Health Outpt Attending physician: Apolinar [...] what he would like to do for prison and to enjoy prison. He reports his wants to go to [place] for a couple of weeks and so began making that focus of the session and preparing for that idea. Discussed scheduling future appointments and talked with him about if he was able to change his focus that we could continue and patient did detect to reschedule. Psychiatric visit total time minutes: 50 Violent Behavior No Current/Previous Provider Psychiatrist: Ian Farfan MD Therapist: TI Harringotn Visit Details Total time (minutes): 50 Assessment [...] TI Harrington 10/03/21 1458 Signed By: 10/03/21 0662 Cosigned By (if applicable): [id number] cc: TI Harrington [facility] Loki 09-22-2021 [facility] [address] [place] [address] Office Visit Report Signed Patient Name: Tom Khan 0 Date of : 1955 Age/Sex: 65 / M Date of Service: Location: [facility] Behavioral Health Outpt Attending physician: Karen Sotelo CNP Intake Intake Visit Reasons: repeat Allergies Allergy/AdvReac Type Severity Reaction Status Date / Time No Known Drug Allergies Allergy Verified 08/08/21 15:02 Current Medication List - Last Reconciled 09/22/21 by Karen oStelo CNP amlodipine 5 mg tablet 5 mg [...] 2.5 mg (1/2 x 5 mg) PO 09,18 30 days insulin glargine 100 unit/mL (3 [...] History of Sexual Abuse: No 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 Normal [facility] SARS-CoV-2 (COVID-19) RNA JOSE+probe Ql (Unsp spec) Not detected Normal NOT DETECTED [facility] Comment on above: Result Comment: This test is not yet approved or cleared by the [place] FDA. When there are no FDA-approved or cleared tests available, and other criteria are met, FDA can make tests available under an emergency access mechanism called an Emergency Use Authorization (EUA). The EUA for this test is supported by the Impregnation Operator of Health and Human Service's (HHS's) declaration [...] with SARS-CoV-2. Performed By: #### C #### [facility] [address] [place], [place] [address] Dr. Cary Liu 08-05-2021 P.BRANDON [place] [id number] Progress Note Signed Patient Name: Tom Khan 0 Date of : 1955 Age/Sex: 65 / M Location: Geriatric [facility] Partial Attending physician: Gilles Farfan MD Subjective Subjective Date of exam: 08/05/21 Subjective Narrative: Tom is seen along with his Jaci today for follow-up in [facility]. He has been in the program [...] Signed By: 08/05/211634 Cosigned By (if applicable): [id number] cc: DMITRY Brice Normal [facility] COMPREHENSIVE METABOLIC PANE Néstor 08-04-2021 Albumin [Mass/Vol] 4.7 g/dL Normal 3.6-5.1 [facility] Comment on above: Performed By: #### 1 3190, 2927 #### [facility] [address], [address] [place] [id number] Executive Office Manager: Ck Wallis MD Albumin/Globulin [Mass ratio] 1.5 {ratio} Normal 1.0-2.5 [facility] Comment on above: Performed By: #### 1 0231, 7600 #### [facility] of [address], [address] [place] [address] Executive Office Manager: Ck Wallis MD ALP [Catalytic activity/Vol] 39 U/L Normal 35-144 [facility] Comment on above: Performed By: #### 1 0231, 7600 #### [facility] of [address], [address] [place] [address] Executive Office Manager: Ck Wallis MD ALT [Catalytic activity/Vol] 39 U/L Normal 9-46 [facility] Comment on above: Performed By: #### 1 0231, 7600 #### [facility] of [address], [address] [place] [address] Executive Office Manager: Ck Wallis MD AST [Catalytic activity/Vol] 29 U/L Normal 10-35 [facility] Comment on above: Performed By: #### 1 0231, 7600 #### [facility] of [address], [address] [place] [address] Executive Office Manager: Ck Wallis MD Bilirubin [Mass/Vol] 0.3 mg/dL Normal 0.2-1.2 [facility] Comment on above: Performed By: #### 1 0231, 7600 #### [facility] of [address] [address], [address] [place] [address] Executive Office Manager: Ck Wallis MD BUN/CREATININE RATIO NOT APPLICABLE Normal 6-22 [facility] Comment on above: Performed By: #### 1 0231, 7600 #### [facility] of [address], [address] [place] [address] Executive Office Manager: Ck Wallis MD Calcium [Mass/Vol] 9.6 mg/dL Normal 8.6-10.3 [facility] Comment on above: Performed By: #### 1 0231, 7600 #### [facility] of [address], [address] [place] [address] Executive Office Manager: Ck Wallis MD Chloride [Moles/Vol] 101 mmol/L Normal 98-110 [facility] Comment on above: Performed By: #### 1 0231, 7600 #### [facility] [place] [address] Executive Office Manager: Ck Wallis MD CO2 [Moles/Vol] 27 mmol/L Normal 20-32 [facility] Comment on above: Performed By: #### 1 023, 7600 #### [facility] [place] [address] Executive Office Manager: Ck Wallis MD Creatinine [Mass/Vol] 1.00 mg/dL Normal 0.70-1.25 [facility] Comment on above: Result Comment: For patients >49 years of age, the reference limit for Creatinine is approximately 13% higher for people identified as -Mauritian. Performed By: #### 1 023, 7600 #### [facility] [address], [address] [place] [address] Executive Office Manager: Ck Wallis MD eGFR NON-AFR. ALBANIAN 80 mL/min/1.73m2 Normal > OR = 60 [facility] Comment on above: Performed By: #### 1 023, 7600 #### [facility] [place] [address] Executive Office Manager: Ck Wallis MD GFR/1.73 sq M.predicted among blacks MDRD (S/P/Bld) [Vol rate/Area] 92 mL/min/{1.73_m2} Normal > OR = 60 [facility] Comment on above: Performed By: #### 1 023, 7600 #### [facility] of [address], [address] [place] [address] Executive Office Manager: Ck Wallis MD Globulin (S) [Mass/Vol] 3.1 g/dL Normal 1.9-3.7 [facility] Comment on above: Performed By: #### 1 023, 7600 #### [facility] of [place] [address] Executive Office Manager: Ck Wallis MD Glucose [Mass/Vol] 135 mg/dL High 65-99 [facility] Comment on above: Result Comment: Fasting reference interval For someone without known diabetes, a glucose value >125 mg/dL indicates that they may have diabetes and this should be confirmed with a follow-up test. Performed By: #### 1 023, 7600 #### [facility] [place] [address] Executive Office Manager: Ck Wallis MD Potassium [Moles/Vol] 3.9 mmol/L Normal 3.5-5.3 [facility] Comment on above: Performed By: #### 1 023, 7600 #### [facility] [place] [address] Executive Office Manager: Ck Wallis MD Protein [Mass/Vol] 7.8 g/dL Normal 6.1-8.1 [facility] Comment on above: Performed By: #### 1 230, 0 #### [facility] [place] [address] Executive Office Manager: Ck Wallis MD Sodium [Moles/Vol] 138 mmol/L Normal 135-146 [facility] Comment on above: Performed By: #### 1 023, 7600 #### [facility] [place] [address] Executive Office Manager: Ck Wallis MD Urea nitrogen [Mass/Vol] 25 mg/dL Normal 7-25 [facility] Comment on above: Performed By: #### 1 230, 7600 #### [facility] [place] [address] Executive Office Manager: Ck Wallis MD LIPID PANEL, [facility] 12-0 Cholesterol [Mass/Vol] 166 mg/dL Normal <200 [facility] Comment on above: Performed By: #### 1 023, 7600 #### [facility] [place] [address] Executive Office Manager: Ck Wallis MD Cholesterol in HDL [Mass/Vol] 41 mg/dL Normal > OR = 40 [facility] Comment on above: Performed By: #### 1 0231, 7600 #### [facility] [place] [address] Executive Office Manager: Ck Wallis MD Cholesterol in LDL [Mass/Vol] [...] LDL-C. Nathan SS et al. KETTY. 2013;310(19): 6180-0929 (http://education.[employer]/faq/HCZ229) Performed By: #### 1 0231, 7600 #### [facility] [place] [address] Executive Office Manager: Ck Wallis MD Cholesterol.total/ Cholesterol in HDL [Mass ratio] 4.0 {ratio} Normal <5.0 [facility] Comment on above: Performed By: #### 1 0231, 7600 #### [facility] [place] [address] Executive Office Manager: Ck Wallis MD NON HDL CHOLESTEROL 125 mg/dL (calc) Normal <130 [facility] Comment on above: Result Comment: For patients with diabetes plus 1 major ASCVD risk factor, treating to a non-HDL-C goal of <100 mg/dL (LDL-C of <70 mg/dL) is considered a therapeutic option. Performed By: #### 1 0231, 7600 #### [facility] [place] [address] Executive Office Manager: Ck Wallis MD Triglyceride [Mass/Vol] 332 mg/dL High <150 [facility] Comment on above: Result Comment: If a non-fasting specimen was collected, consider repeat triglyceride testing on a fasting specimen if clinically indicated. Trever et al. J. of Clin. Lipidol. 2015;9:129-169. Performed By: #### 1 0231, 7600 #### [facility] [address] [facility], [address] [place] [address] Executive Office Manager: Ck Wallis MD Covid-19 PCR ([facility])on 07-06 SARS-CoV-2 (COVID-19) RNA JOSE+probe Ql (Unsp spec) Not detected Normal NOT DETECTED [facility] Comment on above: Result Comment: This test is not yet approved or cleared by the [place] FDA. When there are no FDA-approved or cleared tests available, and other criteria are met, FDA can make tests available under an emergency access mechanism called an Emergency Use Authorization (EUA). The EUA for this test is supported by the [place] of Health and Human Service's (HHS's) declaration [...] consistent with SARS-CoV-2. Performed By: #### [facility] #### [facility] [address] [place] [address] [address] Cary Malagon P.PN.PSJak 07-22-2021 [place] [address] Progress Note Signed Patient Name: Tom Khan 0 Date of : 1955 Age/Sex: 65 / M Location: [facility] Attending physician: Gilles Farfan MD Subjective Subjective [...] Farfan his outpatient provider also working in [facility]. Dr. Farfan increase Celexa to 40 [...] By: 07/22/21 1529 Cosigned By (if applicable): [id number] cc: DMITRY Brice Normal [facility] MRI BRAIN [facility] MRI BRAIN [facility] EXAMINATION: MRI BRA IN [facility], 07/21/2021 12:59 PM EST HISTORY: Cervical [...] No acute infarct Electronically authenticated by: LULA Unger: 2021-07-21 14:13 Normal [facility] P.PN.Jh 07-15-2021 P[address]PNMANUEL [place] [id number] [place] [address] Progress Note Signed Patient Name: Tom Khan 0 Date of : 1955 Age/Sex: 65 / M Location: Geriatric [facility] Partial Attending physician: Gilles Farfan MD [...] depressed even while he is working at [employer] which provides evidence for him that a [...] their safety they are to contact the [facility] office. If the office is not [...] antipsychotic. Dictated By: Gilles Farfan MD 07/15/21 4328 Signed By: 07/15/21 1403 Cosigned By (if applicable): [id number] cc: Gilles Farfan MD [facility] P.PN.PSYon 07-01-20[address] [place] [id number] Progress Note Signed Patient Name: Tom Khan 0 Date of : 1955 Age/Sex: 65 / M Location: [facility] Partial Attending physician: Gilles Farfan MD Subjective [...] DMITRY Brice 07/01/21 1519 Signed By: 07/01/21 1525 Cosigned By (if applicable): [id number] cc: DMITRY Brice Normal [facility] CTA CHEST WO W CONon 10-22-2 021 CTA CHEST WO W CON EXAMINATION: [...] by: CELINE OLIVERA Date: 2021-06-23 22:25 Normal [facility] FREE T4on 06-24-2021 Free T4 [Mass/Vol] 1.05 ng/dL Normal 0.78-2.19 [facility] Comment on above: Performed By: #### F T4 #### [facility] [address] [place] [address] [address] Cary Malagon P.HPMeenuPSYon 06-24-2021 [place] [address] History Physical Report Signed Patient Name: Tom Khan 0 Date of : 1955 Age/Sex: 65 / M Location: [facility] Attending physician: Gilles Farfan MD [facility] History of Present Illness Date of [...] states that they have spoken with their junior financial analyst and they are actually in a very good financial situation. They own several properties that they rent and they have a small fortune put aside for prison money. 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 Tom repeated numerous times during our session that he needed to get back to work. 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 He actually has several interviews lined [...] with Dr. Karlee Farfan and Karen at [facility]. He is currently on Pristiq, Abilify, and [...] this was not a suicide attempts. History [facility] Medical H (more content not included)... Normal [facility] TSHon 06-24-2021 TSH 1.217 uIU/mL Normal 0.470-4.680 [facility] Comment on above: Performed By: #### T SH #### [facility] [address] [place], [place] [address] Dr. Cary Malagon TSH RANGE SEE BELOW Normal [facility] Comment on above: Result Comment: <0.3 4 UIU/ml HYPERTHYROID 0.34-5.60 UIU/ml EUTHYROID >5.60 UIU/ml HYPOTHYROID Performed By: #### T SH #### [facility] [address] [place], [place] [address] Dr. Cary Malagon CARDIAC CHAN ADMITon 021 CK [Catalytic activity/Vol] 100 U/L Normal 55-170 [facility] Comment on above: Performed By: #### C MADM #### [facility] [address] [place] [address] [address] Cary Malagon CK.MB [Mass/Vol] 0.70 ng/mL Normal <=2.37 [facility] Comment on above: Performed By: #### C MADM #### [facility] [address] [place] [address] Dr. Cary Malagon HSTROP 7.2 pg/mL Normal 4.0-42.2 [facility] Comment on above: Result Comment: CUT- OFF POINTS HAVE BEEN ESTABLISHED BASED ON THE FOURTH UNIVERSAL DEFINITIONS OF MYOCARDIAL INFARCTION. THE UPPER REFERENCE LIMIT (URL) OF TROPONIN, DEFINED THE 99TH PERCENTILE OF cTnI DISTRIBUTION IN A REFERENCE POPULATION, HAS BEEN CONFIRMED THE DECISION THRESHOLD FOR PA DIAGNOSIS. Performed By: #### C MADM #### [facility] [address] [place] [address] Dr. Cary Malagon MERCY 47.0 ng/mL Normal <=121.0 [facility] Comment on above: Performed By: #### C MADM #### [facility] [address] [place] [address] Dr. Cary Malagon CBC AUTO DIFFon 06-23-2021 BASO # 0.0 103/ul Normal 0.0-0.1 [facility] Comment on above: Performed By: #### C BC #### [facility] [address] [place] [address] Dr. Cary Malagon Basophils/100 WBC (Bld) 0.3 % Normal 0.2-2.0 [facility] Comment on above: Performed By: #### C BC #### [facility] [address] [place] [address] Dr. Cary Malagon EO # 0.1 103/ul Normal 0.0-0.7 [facility] Comment on above: Performed By: #### C BC #### [facility] [address] [place] [address] Dr. Cary Malagon Eosinophils/100 WBC (Bld) 0.9 % Normal 0.9-7.0 [facility] Comment on above: Performed By: #### C BC #### [facility] [address] [place] [address] Dr. Cary Malagon Erythrocyte distribution width (RBC) [Ratio] 15.1 % Critically high 11.0-15.0 [facility] Comment on above: Performed By: #### C BC #### [facility] [address] [place] [address] Dr. Cary Malagon Hematocrit (Bld) [Volume fraction] 35.8 % Critically low 42.0-54.0 [facility] Comment on above: Performed By: #### C BC #### [facility] [address] [place] [address] Dr. Cary Malagon Hemoglobin (Bld) [Mass/Vol] 12.4 g/dL Critically low 14.0-18.0 [facility] Comment on above: Performed By: #### C BC #### [facility] [address] [place] [address] Dr. Cary Malagon IG # 0.04 10e3/ul Critically high 0.00-0.03 [facility] Comment on above: Performed By: #### C BC #### [facility] [address] [place] [address] Dr. Cary Malagon IG % 0.4 % Normal 0.0-0.5 [facility] Comment on above: Performed By: #### C BC #### [facility] [address] [place] [address] Dr. Cary Malagon LYMPH # 0.9 103/ul Critically low 1.2-3.8 [facility] Comment on above: Performed By: #### C BC #### [facility] [address] [place] [address] Dr. Cary Malagon Lymphocytes/100 WBC (Bld) 10.3 % Critically low 20.5-60.0 [facility] Comment on above: Performed By: #### C BC #### [facility] [address] [place] [address] Dr. Cary Malagon MANUAL DIFF REQ NO Normal [facility] Comment on above: Performed By: #### C BC #### [facility] [address] [place] [address] [address] Cary Malagon MCH (RBC) [Entitic mass] 31.4 pg Normal 25.9-34.0 [facility] Comment on above: Performed By: #### C BC #### [facility] [address] [place] [address] [address] Cary Malagon MCHC (RBC) [Mass/Vol] 34.6 g/dL Normal 29.9-35.2 [facility] Comment on above: Performed By: #### C BC #### [facility] [address] [place] [address] [address] aCry Malagon MCV (RBC) [Entitic vol] 90.6 fL Normal 80.0-94.0 [facility] Comment on above: Performed By: #### C BC #### [facility] [address] [place] [address] Dr. Cary Malagon MONO # 1.1 103/ul Critically high 0.3-0.8 [facility] Comment on above: Performed By: #### C BC #### [facility] [address] [place] [address] [address] Cary Malagon Monocytes/100 WBC (Bld) 11.9 % Normal 1.7-12.0 [facility] Comment on above: Performed By: #### C BC #### [facility] [address] [place] [address] Dr. Cary Malagon NEUT # 6.8 103/ul Critically high 1.4-6.5 [facility] Comment on above: Performed By: #### C BC #### [facility] [address] [place] [address] Dr. Cary Malagon Neutrophils/100 WBC (Bld) 76.2 % Critically high 43.0-75.0 [facility] Comment on above: Performed By: #### C BC #### [facility] [address] [place] [address] Dr. Cary Malagon Platelet mean volume (Bld) [Entitic vol] 9.2 fL Critically low 9.5-13.5 [facility] Comment on above: Performed By: #### C BC #### [facility] [address] [place] [address] Dr. Cary Malagon PLT 256 103/ul Normal 150-450 [facility] Comment on above: Performed By: #### C BC #### [facility] [address] [place] [address] Dr. Cary Malagon RBC 3.95 106/ul Critically low 4.70-6.10 [facility] Comment on above: Performed By: #### C BC #### [facility] [address] [place] [address] Dr. Cary Malagon WBC 8.9 103/ul Normal 4.0-11.0 [facility] Comment on above: Performed By: #### C BC #### [facility] [address] [place] [address] Dr. Cary Malagon CULTURE BLOODon 06-23-2021 Microscopic examination of blood, culture Culture Observations: NO GROWTH AT 5 DAYS. Normal [facility] Comment on above: Performed By: #### C BC #### [facility] [address] [place] [address] Dr. Cary Malagon [facility]04 SARS-CoV-2 (COVID-19) RNA JOSE+probe Ql (Unsp spec) Not detected Normal NOT DETECTED [facility] Comment on above: Result Comment: When diagnostic testing is negative, the possibility of a false negative should be considered in the context of a patient's recent exposures and the presence of clinical signs and symptoms consistent with SARS-CoV-2. This test is not yet approved or cleared by the [place] Food and Drug Administration (FDA). This test was developed by [employer], [place], [place]. The performance characteristics of this test were validated by [facility]. The results are not intended to be used as the sole means for clinical diagnosis or patient management decisions. [facility] is authorized under Clinical Laboratory Improvement Amendments (CLIA) to perform high- complexity testing. Performed By: #### C VDTBH #### [facility] [address] [place] [address] Dr. Cary Malagon D-DIMERon 06-23-2021 D-DIMER 1.43 mg/L FEU Critically high 0.19-0.50 [facility] Comment on above: Performed By: #### C MP #### [facility] [address] [place] [address] Dr. Cary Malagon D-DIMER COMMENTS SEE BELOW Normal [facility] Comment on above: Result Comment: Incr eases [...] hospitalization. Performed By: #### C MP #### [facility] [address] [place] [address] Dr. Cary Malagon PROF 14(COMP METB)on 021 Albumin [Mass/Vol] 3.6 g/dL Normal 3.5-5.0 [facility] Comment on above: Performed By: #### C MP #### [facility] [address] [place] [address] Dr. Cary Malagon Albumin/Globulin [Mass ratio] 1.0 {ratio} Normal [facility] Comment on above: Performed By: #### C MP #### [facility] [address] [place] [address] Dr. Cary Malagon ALP [Catalytic activity/Vol] 46 U/L Normal 38-126 [facility] Comment on above: Performed By: #### C MP #### [facility] [address] [place] [address] Dr. Cary Malagon ALT [Catalytic activity/Vol] 42 U/L Normal 21-72 [facility] Comment on above: Performed By: #### C MP #### [facility] [address] [place] [address] Dr. Cary Malagon Anion gap [Moles/Vol] 12.7 mmol/L Normal [facility] Comment on above: Performed By: #### C MP #### [facility] [address] [place] [address] [address] Cary Malagon AST [Catalytic activity/Vol] 24 U/L Normal 17-59 [facility] Comment on above: Performed By: #### C MP #### [facility] [address] [place] [address] [address] Cary Malagon Bilirubin [Mass/Vol] 0.4 mg/dL Normal 0.2-1.3 [facility] Comment on above: Performed By: #### C MP #### [facility] [address] [place] [address] [address] Cary Malagon Calcium [Mass/Vol] 8.7 mg/dL Normal 8.4-10.2 [facility] Comment on above: Performed By: #### C MP #### [facility] [address] [place] [address] [address] Cary Malagon Chloride [Moles/Vol] 100 mmol/L Normal 98-107 [facility] Comment on above: Performed By: #### C MP #### [facility] [address] [place] [address] [address] Cary Malagon CO2 [Moles/Vol] 27.0 mmol/L Normal 22.0-30.0 [facility] Comment on above: Performed By: #### C MP #### [facility] [address] [place] [address] [address] Cary Malagon Creatinine [Mass/Vol] 1.18 mg/dL Normal 0.66-1.25 [facility] Comment on above: Performed By: #### C MP #### [facility] [address] [place] [address] [address] Cary Malagon EGFR-AF ALBANIAN >60 Normal >=60 [facility] Comment on above: Performed By: #### C MP #### [facility] [address] [place] [address] [address] Cary Malagon EGFR-NON AF ALBANIAN >60 Normal >=60 [facility] Comment on above: Performed By: #### C MP #### [facility] [address] [place] [address] [address] Cary Malagon Globulin (S) [Mass/Vol] 3.6 g/dL Normal [facility] Comment on above: Performed By: #### C MP #### [facility] [address] [place] [address] [address] Cary Malagon Glucose [Mass/Vol] 189 mg/dL Critically high 74-106 [facility] Comment on above: Performed By: #### C MP #### [facility] [address] [place] [address] [address] Cary Malagon Potassium [Moles/Vol] 3.7 mmol/L Normal 3.4-5.0 [facility] Comment on above: Performed By: #### C MP #### [facility] [address] [place] [address] [address] Cary Malagon Protein [Mass/Vol] 7.2 g/dL Normal 6.1-8.2 [facility] Comment on above: Performed By: #### C MP #### [facility] [address] [address] [address] Cary Malagon Sodium [Moles/Vol] 136 mmol/L Critically low 137-145 [facility] Comment on above: Performed By: #### C MP #### [facility] [address] [address] [address] Cary Malagon Urea nitrogen [Mass/Vol] 25.0 mg/dL Critically high 9.0-20.0 [facility] Comment on above: Performed By: #### C MP #### [facility] [address] [address] [address] Cary Malagon Urea nitrogen/Creatinin e [Mass ratio] 21.2 mg/mg Normal [facility] Comment on above: Performed By: #### C MP #### [facility] [address] [place] [address] Dr. Cary Malagon XR CHEST 1 Von [...] by: MACO QUICK Date: 2021-06-23 20:43 Normal [facility] Loki 06-06-2021 [facility] [place] [address] Office Visit Report Signed Patient Name: Tom Khan 0 Date of : 1955 Age/Sex: 65 / M Date of Service: Location: [facility] Behavioral Health Outpt Attending physician: Apolinar CHEN History of Present Illness Date of Exam: [...] Provider Psychiatrist: Karlee Farfan MD Therapist: TI [place] Visit Details Total time (minutes): 30 Assessment [...] TI Harrington 06/06/21 1447 Signed By: 06/06/21 1452 Cosigned By (if applicable): [id number] cc: [facility] KASEY [facility] [address] [place] [address] Office Visit Report Signed Patient Name: Tom Khan 0 Date of : 1955 Age/Sex: 65 / M Date of Service: Location: [facility] Behavioral Health Outpt Attending physician: Karen [...] to learn that he was scheduled for dfly-[id number] appointments with this provider, and then also his therapist. Upon arrival to the office today patient and were informed that they are only allowed 1 appointment per day, due to insurance. Patient and were distressed to learn this, and did speak with our customs officer today regarding this policy. Patient did [...] at this time. Patient continues working at [employer] part-time, approximately 21 hours/week, which is three [...] Jeremiah olsen, (more content not included)... Normal [facility] COMPREHENSIVE METABOLIC PANE Néstor 04-16-2021 Albumin [Mass/Vol] 4.5 g/dL Normal 3.6-5.1 [facility] Comment on above: Performed By: #### 4 96, 28466, 6050 #### [facility] [address], [address] [place] [phone] Executive Office Manager: Ck Wallis MD Albumin/Globulin [Mass ratio] 1.7 {ratio} Normal 1.0-2.5 [facility] Comment on above: Performed By: #### 4 96, 85283, 4060 #### [facility] [address] [place] [address], [address] [place] [phone] Executive Office Manager: Ck Wallis MD ALP [Catalytic activity/Vol] 41 U/L Normal 35-144 [facility] Comment on above: Performed By: #### 4 96, 30408, 7600 #### [facility] of [place] [address] Executive Office Manager: Ck Wallis MD ALT [Catalytic activity/Vol] 37 U/L Normal 9-46 [facility] Comment on above: Performed By: #### 4 96, 14897, 0 #### [facility] of [place] [address] Executive Office Manager: Ck Wallis MD AST [Catalytic activity/Vol] 20 U/L Normal 10-35 [facility] Comment on above: Performed By: #### 4 96, 17495, 0 #### [facility] of [place] [address] Executive Office Manager: Ck Wallis MD Bilirubin [Mass/Vol] 0.5 mg/dL Normal 0.2-1.2 [facility] Comment on above: Performed By: #### 4 96, 57990, 0 #### [facility] [place] [address] Executive Office Manager: Ck Wallis MD BUN/CREATININE RATIO NOT APPLICABLE Normal 6-22 [facility] Comment on above: Performed By: #### 4 96, 99263, 0 #### [facility] of [place] [address] Executive Office Manager: Ck Wallis MD Calcium [Mass/Vol] 9.6 mg/dL Normal 8.6-10.3 [facility] Comment on above: Performed By: #### 4 96, 10818, 7600 #### [facility] of [place] [address] Executive Office Manager: Ck Wallis MD Chloride [Moles/Vol] 100 mmol/L Normal 98-110 [facility] Comment on above: Performed By: #### 4 96, 27201, 7600 #### [facility] of [address], [address] [place] [address] Executive Office Manager: Ck Wallis MD CO2 [Moles/Vol] 31 mmol/L Normal 20-32 [facility] Comment on above: Performed By: #### 4 96, 78828, 0 #### [facility] [place] [address] Executive Office Manager: Ck Wallis MD Creatinine [Mass/Vol] 1.07 mg/dL Normal 0.70-1.25 [facility] Comment on above: Result Comment: For patients >49 years of age, the reference limit for Creatinine is approximately 13% higher for people identified as -Mauritian. Performed By: #### 4 96, 60891, 0 #### [facility] [place] [address] Executive Office Manager: Ck Wallis MD eGFR NON-AFR. ALBANIAN 73 mL/min/1.73m2 Normal > OR = 60 [facility] Comment on above: Performed By: #### 4 , 16132, 0 #### [facility] [place] [address] Executive Office Manager: Ck Wallis MD GFR/1.73 sq M.predicted among blacks MDRD (S/P/Bld) [Vol rate/Area] 85 mL/min/{1.73_m2} Normal > OR = 60 [facility] Comment on above: Performed By: #### 4 96, 32358, 0 #### [facility] [place] [address] Executive Office Manager: Ck Wallis MD Globulin (S) [Mass/Vol] 2.6 g/dL Normal 1.9-3.7 [facility] Comment on above: Performed By: #### 4 96, 67897, 7600 #### [facility] [place] [address] Executive Office Manager: Ck Wallis MD Glucose [Mass/Vol] 139 mg/dL High 65-99 [facility] Comment on above: Result Comment: Fasting reference interval For someone without known diabetes, a glucose value >125 mg/dL indicates that they may have diabetes and this should be confirmed with a follow-up test. Performed By: #### 4 96, 57994, 7600 #### [facility] [place] [address] Executive Office Manager: Ck Wallis MD Potassium [Moles/Vol] 4.2 mmol/L Normal 3.5-5.3 [facility] Comment on above: Performed By: #### 4 96, , 7600 #### [facility] [place] [address] Executive Office Manager: Ck Wallis MD Protein [Mass/Vol] 7.1 g/dL Normal 6.1-8.1 [facility] Comment on above: Performed By: #### 4 , , 0 #### [facility] [place] [address] Executive Office Manager: Ck Wallis MD Sodium [Moles/Vol] 138 mmol/L Normal 135-146 [facility] Comment on above: Performed By: #### 4 , 95275, 0 #### [facility] [place] [address] Executive Office Manager: Ck Wallis MD Urea nitrogen [Mass/Vol] 22 mg/dL Normal 7-25 [facility] Comment on above: Performed By: #### 4 , 82718, 0 #### [facility] [place] [address] Executive Office Manager: Ck Wallis MD HEMOGLOBIN A1con 04-16-2021 HEMOGLOBIN [...] for children. Performed By: #### 4 96, 63825, 7600 #### [facility] [address], [address] [place] [address] Executive Office Manager: Ck Wallis MD LIPID PANEL, [facility] 04-03 Cholesterol [Mass/Vol] 239 mg/dL High <200 [facility] Comment on above: Order Comment: FASTI NG:YES FASTING: YES Performed By: #### 4 96, 7600, 94294 #### [facility] [address], [address] [place] [address] Executive Office Manager: Ck Wallis MD Cholesterol in HDL [Mass/Vol] 45 mg/dL Normal > OR = 40 [facility] Comment on above: Order Comment: FASTI NG:YES FASTING: YES Performed By: #### 4 96, 7600, 89237 #### [facility] [address], [address] [place] [address] Executive Office Manager: Ck Wallis MD Cholesterol in LDL [Mass/Vol] [...] equation in the estimation of LDL-C. Nathan ARENAS et al. KETTY. 2013;310(19): 0030-4407 (http://education.Graze.com/faq/ZOL343) Performed By: #### 4 96, 7600, 93339 #### [facility] [address], [address] [place] [address] Executive Office Manager: Ck Wallis MD Cholesterol.total/ Cholesterol in HDL [Mass ratio] 5.3 {ratio} High <5.0 [facility] Comment on above: Order Comment: FASTI NG:YES FASTING: YES Performed By: #### 4 96, 7600, 84034 #### [facility] [address], [address] [place] [address] Executive Office Manager: Ck Wallis MD NON HDL CHOLESTEROL 194 mg/dL (calc) High <130 [facility] Comment on above: Order Comment: FASTI NG:YES FASTING: YES Result Comment: For patients with diabetes plus 1 major ASCVD risk factor, treating to a non-HDL-C goal of <100 mg/dL (LDL-C of <70 mg/dL) is considered a therapeutic option. Performed By: #### 4 96, 7600, 40508 #### [facility] [address], [address] [place] [address] Executive Office Manager: Ck Wallis MD Triglyceride [Mass/Vol] 280 mg/dL High <150 [facility] Comment on above: Order Comment: FASTI NG:YES FASTING: YES Result Comment: If a non-fasting specimen was collected, consider repeat triglyceride testing on a fasting specimen if clinically indicated. Trever et al. J. of Clin. Lipidol. 2015;9:129-169. Performed By: #### 4 96, 7600, 86874 #### [facility] [place] [address] Executive Office Manager: Ck Wallis MD [facility] SARS-CoV-2 (COVID-19) RNA JOSE+probe Ql (Unsp spec) Not detected Normal NOT DETECTED [facility] Comment on above: Result Comment: This test is not yet approved or cleared by the [place] FDA. When there are no FDA-approved or cleared tests available, and other criteria are met, FDA can make tests available under an emergency access mechanism called an Emergency Use Authorization (EUA). The EUA for this test is supported by the [place] of Health and Human Service's (HHS's) declaration [...] with SARS-CoV-2. Performed By: #### C #### [facility] [address] [place] [address] Dr. Cary Malagon US HARVEY DOP LEG [...] by: IAN FU Date: 2021-04-08 10:22 Normal [facility] CNTHERAPYon 03-23-2021 CNTHERAPY OT/PT/Speech Visit ([facility]) -------- TOM KHAN ([id number]) 1955 [facility] Date Time Provider Department 03/23/21 8:15 AM [facility] Date Time Provider Department Center 03/23/2021 8:15 AM [id number], CHRISTI*[facility] AZRA BRIAN Reason for Visit: Speech Progress [...] as of 05/27/2018: Nifedipine started NIov 07-29 [facility] 05/27/18 Takes Latuda, Remeron, Trintellix, and BP meds (recalls Bistolic, does not have bottles with him).Elizabeth Blas RN Progress Notes: Rudolph Ambrocio, MICK 03/23/2021 9:35 AM Signed Episode Visit Count: 3 Therapist That Will Oversee The Plan Of Care: Dorothy Benoit Start of Care Date: 02/15/21 Onset Date: 01/24/21 Plan of Care Certification Date: 02/15/21 Next Certification Due Date: 05/16/21 Patient Identified by Name and Date of : Yes [facility] SPEECH THERAPY PROGRESS [...] menu planning and meal preparation, planning a constitution party, etc.). Problem Solving: LEVEL 5: The individual demonstrates functional problem solving skills in routine daily activities. He/she rarely requires minimal cueing/assistance or additional time to recognize problems, identify various solutions and carry out steps to complete simple problem solving tasks. The individual usually requires moderate cues/assistance to identify salient features of complex problems and occasionally provides appropriate solut (more content not included)... Normal [facility] Evangel[facility] 03-04-2021 MATILDA Telephone (ORTHIN) -------- TOM KHAN ([id number]) 1955 M [facility] Date Time Provider Department 03/04/21 TIMA SOTO [...] as of 05/27/2018: Nifedipine started NIov 07-29 [facility] 05/27/18 Takes Latuda, Remeron, Trintellix, and BP meds (recalls Bistolic, does not have bottles with him).Elizabeth Blas RN Problem List As Of Date 03/04/2021 Noted [...] Status:Closed by YANETH MENDEZ on 03/04/21 Normal [facility] C-Reactive Proteinon 021 C-Reactive Protein 1.2 mg/dL High <0.9 [facility] Comment on above: Performed By: #### W SR, CRP #### [facility] [address] [place] [address] CNOVon 03-01-2021 CNOV Office Visit (ORTHMN ) -------- TOM KHAN ([id number]) 1955 M T Date Time Provider Department 03/01/21 1:00 PM TIMA SOTO During your visit today, we recorded the following information about you: Tima Soto MD 03/01/2021 4:35 PM Signed Ortho Knee Follow Up Note Narrative Referring Provider: Tima Soto [address] [facility] [address] PCP: Tom Paniagua, ==== IMPRESSION/PLAN: Sed rate/crp ==== 65 year [...] Assessment and Plan. Referring Provider: TIMA SOTO [[id number]] Allergies As of Date: 03/01/2021 (No Known Allergies) Date Reviewed: 03/01/2021 Reviewed by: Derrick Mascorro - Fully Assessed Reason for Visit: Established Patient [175] Primary Visit Diagnosis:S/P total knee replacement, right [Z96.651] Order(s):SED RATE WESTERGREN [SQWSR] Order #: [id number] FUTURE C-REACTIVE PROTEIN (CRP) [SQCRP] Order #: [id number] FUTURE Prescriptions as of 03/01/2021 Sig: ASPIRIN [...] Status:Closed by TIMA SOTO on 03/01/21 Normal [facility] Sed Rate Westergrenon 2020 Sed Rate Westergren 17 mm/hr High 0-15 [facility] Comment on above: Performed By: #### W SR, CRP #### [facility] [place], [place] [address] XR KNEE 3V AP/LAT/MERCHANT R Ton 03-01-2021 [...] other significant abnormality. IMPRESSION: EXPECTED POSTOPERATIVE APPEARANCE Program Administrator: ISADORA Transcribe Date/Time: Mar 01 2021 4:12P Dictated by : MICHELLE REYES MD This examination was interpreted and the report reviewed and electronically signed by: MICHELLE REYES MD on Mar 01 2021 4:12PM EST [id number] Normal [facility] CNTHERAPYon 02-25-2021 CNTHERAPY OT/PT/Speech Visit ([facility]) -------- TOM KHAN ([id number]) 1955 M T Date Time Provider Department 02/25/21 9:30 AM [facility] Date Time Provider Department Center 02/25/2021 9:30 AM [id number], [facility]I*[facility] AZRA BRIAN Reason for Visit: Speech Therapy [...] mouth three bassem* Progress Notes: Rudolph Ambrocio, MICK 02/25/2021 12:06 PM Signed Episode Visit Count: 2 Therapist That Will Oversee The Plan Of Care: Dorothy Benoit Start of Care Date: 02/15/21 Onset Date: 01/24/21 Plan of Care Certification Date: 02/15/21 Next Certification Due Date: 05/16/21 Patient Identified by Name and Date of : Yes [facility] SPEECH THERAPY TREATMENT [...] after 5 minutes (100%) TREATMENT: Speech/Language Therapy (10230): Skilled Intervention: Educated and instructed patient on [...] order, time problem solving Billing: Speech Treatment (62401) Total time / Length of visit: 45 minutes MICK Flanagan -------- Normal [facility] CNTHERAPYon 02-15-2021 CNTHERAPY OT/PT/Speech Visit ([facility]) -------- BILL,TOM ([id number]) 1955 M T Date Time Provider Department 02/15/21 9:30 AM DOROTHY BENOIT Date Time Provider Department Center 02/15/2021 9:30 AM [id number] BENOIT [facility] AZRA LAK Reason for Visit: Speech Evaluation [3307] Visit Diagnosis:MCI (mild cognitive impairment) [G31.84] Allergies [...] by Name and Date of : Yes [facility] COGNITIVE LINGUISTIC EVALUATION PLAN OF CARE: Impression: Functional communication without limitations in: Cognition Communication deficits identified: Cognitive deficits RECOMMENDATION: FIRE RANGER Recommendations: Outpatient Speech Therapy Results and Recommendations Discussed With: Patient Prognosis: Good Good: good support system/ coping skills FCM Memory Level: 5 FCM Problem Solving Level: 5 Assessment per [facility] Functional Communication Measure and treatment recommendations: Memory: LEVEL 5: The individual consistently requires minimal cues to recall or use external memory aids for complex and novel information. The individual consistently requires cues to plan and follow through on complex future events (e.g., menu planning and meal preparation, planning a constitution party, etc.). 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 Normal [facility] PN-PSYCon 12-30-2020 PN-PSYC [facility] Name: TOM KHAN : 1955 Unit: [id number] Age: 65 Attending Physician: JASMINE CONNOLLY PMNS-BC Pt Location: [facility] Date of Service: PROGRESS NOTE DATE OF [...] purpose. 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 in [place]. Tom is scheduled with Dr. Karlee Farfan in our outpatient department for February [...] any concerns (more content not included)... Normal [facility] PN-PSYCon 12-16-2020 PN-PSYC [facility] Name: TOM KHAN : 1955 Unit: [id number] Age: 65 Attending Physician: JASMINE CONNOLLY PSYCHIATRICEILEEN- Pt Location: [facility] Date of Service: PROGRESS NOTE DATE SEEN: [...] background check gets back for part-time at [employer] and he may be starting that next [...] because she is coming with Tom to [facility] next Sunday when he is here again [...] 12/24/20 1257 GILLES FARFAN M.D. Date Dict: 12/16/20929 JASMINE CONNOLLY [facility] Date trans: 12/16/20 0943 [facility] [id number] cc: Normal [facility] PN-PSYCon 12-15-2020 PN-PSYC [facility] Name: TOM KHAN : 1955 Unit: [id number] Age: 65 Attending Physician: JASMINE CONNOLLY [facility] [place] Location[place] [facility] Date of Service: PROGRESS NOTE DATE SEEN: [...] of his medications as currently prescribed to [facility] in [place] for a 30- day supply but I [...] crisis in between. Electronically Signed by: JASMINE CONNOLLY, TAXATION ECONOMIST, PMNS- 12/16/20 0932 (more content not included)... 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 in [place] which I do for a 30-day supply. [...] is agree (more content not included)... Normal [facility] PSYCOH Willi 12-06-2020 PSYCOH P [facility] Name: TOM KHAN : 1955 Unit: [id number] Age: 65 Attending Physician: JASMINE CONNOLLY [facility] [place] Location[place] [facility] Date of Service: HISTORY DATE OF SERVICE: 12/01/2020 PRESENT ILLNESS: Mr. Tom Khan is a 65-year-old male whom was referred to the IOP as he was presenting with significant symptomology and non-response to medications so it was determined that he would likely do better in a situation where he could be monitored more closely in regards to medication response as well as treatment potential and response to therapy. Mr. Khan has been in outpatient psychiatric services with [facility] for medication management and therapy services for about the past 3 months. He was originally in partial hospitalization after he was discharged from inpatient hospitalization with [facility] from 07/19/2020 to 07/22/2020. The [...] [facility] the [facility] At that time, Aissatou had admitted him [...] his admission in July to inpatient at [facility] he was admitted from [facility] just post-discharge from there. The diagnosis being used while he was inpatient at [facility] was major depressive disorder, recurrent, with a [...] I see Tom for initial appointment in [facility] today on December 01, he is presenting [...] he osei (more content not included)... Normal [facility] PN-PSYCon 08-24-2020 PN-PSYC [facility] Name: TOM KHAN : 1955 Unit: [id number] Age: 64 Attending Physician: KAREN SOTELO C.N.P., Pt Location: [facility] Date of Service: PROGRESS NOTE DATE: 08-24-2020 [...] on to state that he did not spanish moss picker the 150 mg because it was going [...] Tom will plan on discharging from the [facility] program today. He does have follow up [...] 09/07/20 1055 (more content not included)... Normal [facility] JACQUIE-PSYCon 08-17-2020 JACQUIE-PSYC [facility] Name: TOM KHAN : 1955 Unit: [id number] Age: 64 Attending Physician: KAREN SOTELO C.N.P. Pt Location: [facility] Date of Service: PROGRESS NOTE DATE SEEN: [...] week he is paying for the program [id number]. He has a conjoint scheduled with his this afternoon and he is hoping to discharge from the program later this week. At this point Tom is still not sure who he is going to follow up with. He has been under the care of Dr. Maldonado in the [place], [place] area but he is interested in finding a new provider. We have discussed the option of following up here or finding a psychiatric provider closer to his home in [place]. OBJECTIVE: Tom is oriented times three today [...] or with a psychiatric provider in the [place] [facility]. Today refills were sent for the Lamictal 150 mg due to the dose change but no other refill is needed today. Electronically Signed by: KAREN SOTELO C.N.P. 08/19/20 1334 KAREN SOTELONMeenuPMeenu Date Dict: 08/17/20 1043 KAREN SOTELONMeenuPMeenu Date trans: 08/17/20 1152 [facility] [id number] cc: Normal [facility] PN-PSYCon 08-10-2020 PN-PSYC [facility] Name: TOM KHAN : 1955 Unit: [id number] Age: 64 Attending Physician: KAREN SOTELO C.N.P. Pt Location: [facility] Date of Service: PROGRESS NOTE DATE OF [...] current treating psychiatrist, Dr. Maldonado, in the [facility]. Tom is not sure if he [...] a refill for BuSpar, Lamictal, and Viibryd. Bec (more content not included)... Normal [facility] PSYCOH Willi 08-03-2020 PSYCOH P [facility] Name: TOM KHAN : 1955 Unit: [id number] Age: 64 Attending Physician: JASMINE CONNOLLY PMEILEEN- Pt Location: [facility] Date of Service: HISTORY DATE OF SERVICE: 08/02/2020 DATE OF EVALUATION: 08/03/2020 TOTAL TIME SPENT WITH PATIENT: 80 minutes. CHIEF COMPLAINT: I just want to get back to work to my old job, but I can't. PRESENT ILLNESS: Mr. Khan is a 64-year-old male being seen today for his initial evaluation for the intensive out-patient program in [facility]. He has recently been in-patient in our [facility] geriatric unit with an admission date of 07/19/2020 and discharge date of 07/22/2020. Tom reports his insisted that he come in for help because she does not feel he is where he needs to be. Prior to coming to the [facility] geriatric program he was actually at [facility] for twelve days. 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 Tom denies any previous diagnosis of post [...] he do (more content not included)... Normal [facility] XR Knee AP and Lateral and M ercjhoantson 05-20-2020 IMPRESSION: Status post right total knee arthroplasty without evidence of complication. Program Administrator: PSCB Transcribe Date/Time: May 20 2020 2:07P Dictated by : CAPRI CASTANEDA MD This examination was interpreted and the report reviewed and electronically signed by: CAPRI CASTANEDA MD on May 20 2020 2:08PM [facility] DIVISION OF RADIOLOGY * * *Final Report* [...] arthroplasty appears unchanged. DIVISION OF RADIOLOGY Provider, [facility] Tobi [facility] - 05/20/2020 * * *Final Report* [...] total knee arthroplasty without evidence of complication. Program Administrator: PSCB Transcribe Date/Time: May 20 2020 2:07P Dictated by : CAPRI CASTANEDA MD This examination was interpreted and the report reviewed and electronically signed by: CAPRI CASTANEDA MD on May 20 2020 2:08PM EST [facility] Radiology Study observation (narrative) [facility] XR Knee AP and Lateral and M erchantsOrdered By: Ccf Provider on 05-20-2020 [facility] ic CNPNon 04-27-2020 CNPN Telephone (AVXRMR) -------- TOM KHAN ([id number]) 1955 M C[facility] Date Time Provider Department 04/27/20 LARGE HOPS PROCEDURE RM 1 AVXRMR During your visit today, we recorded the following information about you: Katlin Ramires RT, Tech 04/27/2020 7:01 AM Signed Pt needs Mri 3d order for dementia brain. Please place this order prior to patients appointment. Thanks, [facility] [phone] Allergies As of Date: 04/27/2020 (No Known [...] Encounter Status:Closed by KATLIN RAMIRES on 04/27/20 Normal [facility] Basic Metabolic Panlon 04-13 Anion gap [Moles/Vol] 13 mmol/L Normal 9-18 [facility] Comment on above: Performed By: #### C SOBEIDA, BMP ####[place] [id number] Calcium [Mass/Vol] 8.4 mg/dL Low 8.5-10.2 [facility] Comment on above: Performed By: #### C BC, BMP ####[place] [id number] Chloride [Moles/Vol] 102 mmol/L Normal 97-105 [facility] Comment on above: Performed By: #### C BC, BMP ####[place] [id number] CO2 [Moles/Vol] 24 mmol/L Normal 22-30 [facility] Comment on above: Performed By: #### C BC, BMP ####[place] [id number] Creatinine [Mass/Vol] 1.08 mg/dL Normal 0.73-1.22 [facility] Comment on above: Performed By: #### C BC, BMP ####[place] [id number] eGFR- Amer. >60 Normal >60 [facility] Comment on above: Performed By: #### C BC, BMP ####[place] [id number] GFR/1.73 sq M predicted among non-blacks MDRD (S/P/Bld) [Vol rate/Area] mL/min/{1.73_m2} Normal >60 [facility] Comment on above: Result Comment: eGFR (Estimated GFR) Units of measure: mL/min/1.73 meters squared eGFR is derived from the reexpressed MDRD Study equation using the following parameters: serum creatinine, age, gender and race. The creatinine assay has been calibrated to be traceable to IDMS. An eGFR <60 mL/min/1.73m2 for >3 months is consistent with chronic kidney disease. Refer to KDOQI guidelines for clinical interpretation. In patients with unstable renal function, e.g. those with acute kidney injury, the eGFR may not accurately reflect actual GFR. Performed By: #### C SOBEIDA, BMP ####[address] Glucose [Mass/Vol] 168 mg/dL High 74-99 [facility] Comment on above: Performed By: #### C SOBEIDA, BMP ####[address] Potassium [Moles/Vol] 4.0 mmol/L Normal 3.7-5.1 [facility] Comment on above: Performed By: #### C SOBEIDA, BMP ####[address] Sodium [Moles/Vol] 139 mmol/L Normal 136-144 [facility] Comment on above: Performed By: #### C SOBEIDA, BMP ####[place] [id number] Urea nitrogen [Mass/Vol] 16 mg/dL Normal 9-24 [facility] Comment on above: Performed By: #### C SOBEIDA, BMP ####[address] CASE MANAGEMon 04-13-2020 CASE MANAGEM HNO ID: [id number] Author: Kellie Tong) SAMUEL Galvan Service: ? Author Type: Registered Nurse Type: Care Mgt Progress Note Filed: 04/13/2020 2:10 PM Note Text: CARE MANAGEMENT DISCHARGE NOTE SERVICE DATE: 04/13/2020 SERVICE TIME: 11:25 am LOS: 0 days Admission Date: 04/12/2020 DISCHARGE ARRANGEMENT (list agency and phone number) Discharge Arrangement: Home Group Home Care: PT Provider [facility]: [facility] [place], [place] Above agency is in in [employer], they have been called and are aware of DC today, information has been faxed to them at [phone] CAREGIVER ASSESSMENT: HANDOFF COMMUNICATION: Handoff to: (see summary of care) TRANSPORTATION ARRANGEMENTS: Transportation Arrangements: Car ADDITIONAL CONTACT RESOURCES: May ?1:15 PM Post Op with [facility] ([facility]) [address] [place], [place] [id number] Needs Prior to Discharge: Ready for Discharge Patient and spouse said they did not need any further psychiatry information, but did accept [facility] physician referral phone number if needed in the future. SIGNATURE: Kellie Galvan RN PATIENT NAME: Tom Khan DATE: April 13, 2020 TIME: 11:25 AM PAGER/CONTACT #: [phone] Normal [facility] CBCon 04-13-2020 Absolute nRBC <0.01 Normal <0.01 [facility] Comment on above: Performed By: #### C BC, BMP ####[facility] Erythrocyte distribution width (RBC) [Ratio] 14.3 % Normal 11.5-15.0 [facility] Comment on above: Performed By: #### C BC, BMP ####[facility] Hematocrit (Bld) [Volume fraction] 35.6 % Low 39.0-51.0 [facility] Comment on above: Performed By: #### C BC, BMP ####[facility] Hemoglobin (Bld) [Mass/Vol] 11.6 g/dL Low 13.0-17.0 [facility] Comment on above: Performed By: #### C BC, BMP ####[address] MCH (RBC) [Entitic mass] 30.0 pG Normal 26.0-34.0 [facility] Comment on above: Performed By: #### C BC, BMP ####[address] MCHC (RBC) [Mass/Vol] 32.6 g/dL Normal 30.5-36.0 [facility] Comment on above: Performed By: #### C BC, BMP ####[place] [id number] MCV (RBC) [Entitic vol] 92.0 fL Normal 80.0-100.0 [facility] Comment on above: Performed By: #### C SOBEIDA, BMP ####[address] Platelet mean volume (Bld) [Entitic vol] 9.1 fL Normal 9.0-12.7 [facility] Comment on above: Performed By: #### C SOBEIDA, BMP ####[address] Platelets (Bld) [#/Vol] 226 10*3/uL Normal 150-400 [facility] Comment on above: Performed By: #### C BC, BMP ####[address] RBC (Bld) [#/Vol] 3.87 10*6/uL Low 4.20-6.00 [facility] Comment on above: Performed By: #### C BC, BMP ####[address] WBC (Bld) [#/Vol] 11.48 10*3/uL High 3.70-11.00 [facility] Comment on above: Performed By: #### C BC, BMP ####[place] [phone] CONSULTon 04-13-2020 CONSULT HNO ID: [id number] Author: Karlee Boykin Service: Psychiatry Author Type: [...] will fu with his outpatient psychiatrist at [facility] and with his counselor 3.) Will fu with neurology for MRI which is scheduled 04/26/2020 For questions regarding this patient for today, please page Karlee Boykin APRN.CNP After 5 PM and on weekends, please page Psychiatry On-Call Pager @ [phone]. Consulting Service: Psychiatry, requested by Tima Soto's team REASON FOR CONSULTATION: Depression Identifying Information: Mr. Khan is a 64 year old male from [place], [place]. HPI: Calm, cooperative, pleasant on interview. [...] and they are very active in their yazidi (both are protective factors) -Tom just saw [...] in 2018 for depression in (2 at [facility] [place] [facility] History of Suicide Attempts: none [...] not working Current supports: Legal history: None Restorationist affiliation(s): spiritual, oriental orthodox Abuse history: suggests history of trauma in childhood FAMILY HISTORY Problem Relation Age of Onset - Diabetes Mother - Stroke Mother - Heart Father PA age 56 - No Ocular Disease Other [...] 08/22/2017 7.0 4.5 - 8.0 Final Specific [place], [place] Date Value Ref Range Status 08/22/2017 [...] 0-5 R05 /HPF Final SIGNATURE: Karlee Boykin APRN.ASSEMBLER GOLD FRAME PAGER/CONTACT #: [facility] CONSULT PROGon 04-13-2020 CONSULT PROG HNO ID: [id number] Author: Woo Sanchez Service: General Internal Medicine [...] DATE: April 13, 2020 TIME: 12:58 PM [facility] PROGRESSon 04-13-2020 PROGRESS HNO ID: [id number] Author: Kemal Calderón (Pa) Service: Orthopaedic Surgery Author Type: Physician Chuck Splitter Type: Progress Notes Filed: 04/13/2020 9:05 AM [...] 05/13/20 2359 04/12/20 1315 graduated compression stockings ([place], [place]) 04/12/20 1315 graduated compression [place]ings [place] 04/12/20 1315 activity - mobilize patient ([place]) VTE Prophylaxis: VTE prophylaxis appropriate POST OPERATIVE COMPLICATIONS: Complicated by: uneventful/none SIGNATURE: Kemal Calderón PA-C PATIENT NAME: Tom Khan DATE: 04/13/2020 TIME: 9:05 AM PAGER/CONTACT #: [phone] [facility] THERAPY NTon 04-13-2020 THERAPY NT HNO ID: [id number] Author: Malaika (Pt) Ayo Service: Physical Therapy Author Type: Physical Therapist Type: Therapy (PT/OT/Speech/Resp) Filed: 04/13/2020 2:57 PM Note Text: Physical Therapy Treatment SERVICE DATE: 04/13/2020 SERVICE TIME: 1336 to 1447 ROOM: [place] [address] Recommended Discharge Disposition: Home PT Anticipated Discharge [...] ess on feet Interventions Provided: Therapeutic Exercise (05574);Therapeutic Activity (12701);Gait Training (27790) Therapeutic Exercise (11731) Treatment Minutes: 40 3 units Skilled Intervention(s): Instruction in therapeutic exercise per TKR protocol. Patient performed all supine and seated exercises 1 x 10 Verbal and tactile cuing provided for correct exercise technique, proper set up and frequency of exercise at discharge and use of ice for pain relief Therapeutic Activity (19351) Treatment Minutes: 11 1 unit Skilled Intervention(s): Instructed patient in supine to and from sit pushing with upper extremities to sit up Instruction in sit to and from stand technique with proper hand placement and body positioning at edge of bed/chair Gait Training (53730) Treatment Minutes: 20 1 unit Skilled Intervention(s): [...] DATE: April 13, 2020 TIME: 2:53 PM [facility] THERAPY NT HNO ID: [id number] Author: Michelle (Ot) ADALBERTO Bob Service: Occupational Therapy Author Type: Occupational Therapist Type: Therapy (PT/OT/Speech/Resp) Filed: 04/13/2020 10:03 AM Note Text: Occupational Therapy Evaluation SERVICE DATE: 04/13/2020 SERVICE TIME: 0846 to 0914 ROOM: [place] [address] Recommended Discharge Disposition: Home Anticipated Discharge Needs: [...] of daily living (ADL) Interventions Provided: Evaluation;Self Group Home Management (35608) $ Evaluation-Low (81265) Billed Units: 1 unit Self Group Home Management (31634) Treatment Minutes: 13 1 unit Skilled Intervention(s): [...] DATE: April 13, 2020 TIME: 10:02 AM [facility] ANES POSTPROC EVALon 020 ANES POSTPROC EVAL HNO ID: [id number] Author: Shawn Tran Service: ? Author Type: Anesthesiologist Type: Anesthesia Postprocedure Evaluation Filed: 04/12/2020 4:43 PM Note Text: POST ANESTHESIA EVALUATION NOTE : 1955 Procedure Summary Date: 04/12/20 Room / Location: OR / OR Anesthesia Start: 927 Anesthesia Stop: [...] April 12, 2020 TIME: 4:43 PM CSN: [id number] [facility] ANES PRE-OPon 04-12-2020 ANES PRE-OP HNO ID: [id number] Author: Shawn Tran Service: ? Author Type: [...] 0737 Pulse 74 04/12/20 0737 Resp 16 04/12/2037 Temp 36.4 ?C (97.5 ?F) 04/12/20 07 SpO2 96 % 04/12/2037 Facility-Administered Medications as of 04/12/2020 Medication Dose [...] April 12, 2020 TIME: 8:57 AM CSN: [id number] [facility] BRIEF OP NOTon 04-12-2020 BRIEF OP NOT HNO ID: [id number] Author: Eliseo Toussaint Service: Orthopaedic Surgery Author Type: Resident Type: Brief Op Note Filed: 04/12/2020 12:29 PM Note Text: ORTHOPAEDIC SURGERY BRIEF OP NOTE LOG ID: [id number] Surgery/Procedure Date: 04/12/2020 Incision/Procedure Start Time: 10:09 AM Incision Close/Procedure End Time: 12:06 PM Surgeon(s)/Proceduralist (s) and Chuck Splitter(s): Surgeon(s) and Role: * Tima Soto - Primary * Eliseo Toussaint - Resident - Assisting Procedure(s): Right TKA Anesthesia: Spinal Findings: Right knee OA Estimated Blood Loss: 10 ml Specimens: None Complications: None Pre-Op/Pre-Procedure Diagnosis: Right knee OA Post-Op/Post-Procedure Diagnosis: Same SIGNATURE: Eliseo Toussaint MD PATIENT NAME: Tom Khan DATE: April 12, 2020 TIME: 12:29 PM PAGER/CONTACT #: [phone] / [facility] CASE MANAGEMon 04-12-2020 CASE MANAGEM HNO ID: [id number] Author: Kellie DamonRn) SAMUEL Galvan Service: ? Author Type: Registered Nurse Type: Care Mgt Progress Note Filed: 04/12/2020 4:34 PM Note Text: CARE MANAGEMENT PROGRESS NOTE SERVICE DATE: 04/12/2020 SERVICE TIME: 4:33 pm LOS: 0 days Referral fax[facility] to [facility] [place]. phone # [phone] and fax # [phone] Wheeled walker ordered from [facility] SIGNATURE: Kellie Galvan RN PATIENT NAME: Tom Khan DATE: April 12, 2020 TIME: 4:33 PM PAGER/CONTACT #: [phone] [facility] CASE MANAGEM HNO ID: [id number] Author: Kellie (Rn) SAMUEL Galvan Service: ? Author Type: Registered Nurse Type: Care Mgt Progress Note Filed: 04/12/2020 2:09 PM Note Text: CARE MANAGEMENT PROGRESS NOTE SERVICE DATE: 04/12/2020 SERVICE TIME: 2:07 pm LOS: 0 days Procedure(s): Right TKA [place] of Choice Given: Yes Level of Care [...] Current Advance Directive: Health Care Power of Eyedotter;Living Will In Chart: Yes Up To Date and Valid: Yes Lives with who can assist at home. Had a std walker. Meds filed here. CM Department will continue to follow. SIGNATURE: Kellie Galvan RN PATIENT NAME: Tom Khan DATE: April 12, 2020 TIME: 2:07 PM PAGER/CONTACT #: [phone] [facility] CONSULTon 04-12-2020 CONSULT HNO ID: [id number] Author: Woo Sanchez Service: General Internal Medicine [...] DATE: April 12, 2020 TIME: 5:29 PM [facility] NURSING PROGon 04-12-2020 NURSING PROG HNO ID: [id number] Author: Diya (Rn) SAMUEL Tmi Service: ? Author Type: Registered Nurse Type: Nursing Progress Note Filed: 04/12/2020 2:09 PM Note Text: Nursing Progress Note Patient Name: Tom Khan Patient Location: [address]- Patient transferred from PACU to room 2-2 [...] note was completed by: Diya Tim RN [facility] NURSING [facility] ID: [id number] Author: Nnacy DamonRn) SAMUEL Sales Service: ? Author Type: Registered Nurse Type: Nursing Progress Note Filed: 04/12/2020 12:39 PM Note Text: Dr. Montelongo at bedside to do block on right knee at this time. Pt tolerated procedure well. [facility] ID: [id number] Author: Hebert DamonRn) SAMUEL Mast Service: Nursing Author Type: Registered Nurse Type: Nursing Progress Note Filed: 04/12/2020 12:14 PM Note Text: Discharge Status: Patient is Awakening, and is no airway issues. Skin condition was WNL. Transported to recovery room via bed with siderails up. Accompanied by couturiere and surgeon. [facility] ID: [id number] Author: Hebert Tong) SAMUEL Mast Service: Nursing Author Type: Registered Nurse Type: Nursing Progress Note Filed: 04/12/2020 9:40 AM Note Text: Patient transported to the OR via cart, accompanied by TUBE WASHER RN. Level of consciousness: Alert and Oriented x 3 Emotional Status:Calm Sensory Impairments: No Language Barrier: No Mobility Impairments: Yes, spinal Addressed any patient concerns regarding consents, OR environment, and anesthetics. Body temperature maintained by maintaining OR room temperature between 68-72 degrees F, providing patient with warm bath blankets, limiting areas of exposure and providing warm irrigation fluid. [facility] ID: [id number] Author: Maxime DamonRnAb Dominguez RN Service: Nursing Author Type: Registered Nurse Type: Nursing Progress Note Filed: 04/12/2020 8:31 AM Note Text: Nursing Progress Note Patient Name: Tom Khan Patient Location: [facility]-OPERATING ROOM POOL/[facility]-OR POOL Daily Note:underwear off. This note was completed by: Maxime Dominguez, RN [facility] OPERATIVE NOon 04-12-2020 OPERATIVE NO HNO ID: [id number] Author: Tima Soto Service: Orthopaedic Surgery Author Type: Physician Type: Operative Report Filed: 04/13/2020 8:19 AM Note Text: OPERATIVE/PROCEDURE REPORT LOG ID: [id number] Surgery/Procedure Date: 04/12/2020 Incision/Procedure Start Time: 10:09 AM Incision Close/Procedure End Time: 12:06 PM Surgeon(s) and Chuck Splitter(s): Surgeon(s) and Role: * Tima Soto - Primary * Eliseo (Res) Norbert - Resident - Assisting Physician Chuck Splitter: Alcon Mahajan) Erwin Waldrop (Pa) Procedure(s): Procedure(s) (LRB): ARTHROPLASTY REPLACE [...] Implant Name Type Inv. Item Serial No. Lead Relay Tester Lot No. LRB Model Num No. 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 - [id number] Joint BASEPLATE 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 The femur was sized and drill [...] None Resident opened and closed and Physician Chuck Splitter closed, without direct supervision but with primary surgeon/proceduralist readily available and the remainder of the procedure was performed by the primary surgeon/proceduralist with assistance. SIGNATURE: Tima Soto MD PATIENT NAME: Tom Khan DATE: April 13, 2020 TIME: 8:18 AM PAGER/CONTACT #: [facility] PT EDon 04-12-2020 PT ED HNO ID: [id number] Author: Maxime Tong) SAMUEL Dominguez Service: Nursing Author Type: Registered Nurse Type: Patient Education Filed: 04/12/2020 8:08 AM Note Text: PATIENT EDUCATION TOPIC: PROCEDURE / SURGERY: Pre-op Teaching: Logistics Protocols Complication Prevention PATIENT NAME: Tom Khan [facility]* READINESS TO LEARN COGNITIVE ABILITY: Alert and [...] None REFERRAL (RECOMMENDATION): None Electronically Signed By: Maxime Dominguez RN [facility] THERAPY NTon 04-12-2020 THERAPY NT HNO ID: [id number] Author: Malaika (Guevara) Ayo Service: Physical Therapy Author Type: Physical Therapist Type: Therapy (PT/OT/Speech/Resp) Filed: 04/12/2020 4:09 PM Note Text: Physical Therapy Evaluation SERVICE DATE: 04/12/2020 SERVICE TIME: 1503 to 1553 ROOM: [address]- Recommended Discharge Disposition: Home PT Anticipated Discharge [...] ess on feet Interventions Provided: Evaluation;Therapeutic Exercise (71173);Therapeutic Activity (07193) $ Evaluation-Moderate (16628) Billed Units: 1 unit Therapeutic Exercise (45916) Treatment Minutes: 20 1 unit Skilled Intervention(s): Instruction in therapeutic exercise per TKR protocol. Patient performed all supine exercises 1 x 10 Verbal and tactile cuing provided for correct exercise technique and frequency of antiembolics Therapeutic Activity (50885) Treatment Minutes: 15 1 unit Skilled Intervention(s): [...] DATE: April 12, 2020 TIME: 4:02 PM [facility] NURSING [facility] 04-07-2020 NURSING PROG HNO ID: [id number] Author: Malu DamonRn) SAMUEL Hernández Service: Anesthesiology Author Type: Registered Nurse Type: Nursing Progress Note Filed: 04/07/2020 2:53 PM Note Text: ADDENDUM: 04/02/[address] Rodrigue Bush completed. Ok to proceed per PACC KEVAN. Chart Check COMPLETE Malu Hernández RN April 07, 2020 2:53 PM [facility] NURSING [facility] 04-02-2020 NURSING PROG HNO ID: [id number] Author: Flor DamonRn) SAMUEL Hyman Service: Anesthesiology [...] N/A Cardiac Testing: EKG completed 04/01/20 in [facility] Sinus Rhythm with 1st Degree AV Block:Right Bundle Branch Block:Possible inferior Infarction, Age Undetermined :Abnormal EKG - Unconfirmed in [facility] Last Menstrual Period: LMP Date: N/A Postmenopausal [...] monitored per PCP last glucose result in [facility] of 11/23/19 (112) ? ? S/P [...] Hyman RN April 02, 2020 9:59 AM [facility] Type and SCR (30D)on 020 ABO/RH(D) Negative [facility] Comment on above: Performed By: #### T SCR30 #### [facility] [address] [address] HOSPon 02-26-2020 HOSP Patient:Tom Khan MRN: Height:5' [...] entered within the past 30 days Normal [facility] CBC with Diffon 11-09-2018 Abs. Basophil 0.00 k/uL Normal 0.0-0.2 [facility] Comment on above: Performed By: #### C DP, CMPX, FT4, LIPR, TSH #### [facility] [address] [place] [address] [employer]: Artem Swann MD #### GLYHGB #### [place] [address] [employer]: Hiram Mccullough MD Abs.Neutrophil (Seg) 4.30 k/uL Normal 1.3-9.1 [facility] Comment on above: Performed By: #### C DP, CMPX, FT4, LIPR, TSH #### [facility] [address] [place] [address] [employer]: Artem Swann MD #### GLYHGB #### [place] [address] [employer]: Hiram Mccullough MD Basophils/100 WBC (Bld) 0 % Normal 0-2 [facility] Comment on above: Performed By: #### C DP, CMPX, FT4, LIPR, TSH #### [facility] [address] [place] [address] [employer]: Artem Swann MD #### GLYHGB #### [address] [address] [employer]: Hiram Mccullough MD Eosinophils #/vol (Bld) 0.00 10*3/uL Normal 0.0-0.4 [facility] Comment on above: Performed By: #### C DP, CMPX, FT4, LIPR, TSH #### [facility] [address] [place] [address] [employer]: Artem Swann MD #### GLYHGB #### [address] [address] [employer]: Hiram Mccullough MD Eosinophils/100 WBC (Bld) 0 % Normal 0-4 [facility] Comment on above: Performed By: #### C DP, CMPX, FT4, LIPR, TSH #### [facility] [address] [place] [address] [employer]: Artem Swann MD #### GLYHGB #### [address] [address] [employer]: Hiram Mccullough MD Erythrocyte distribution width Ratio (RBC) 14.3 % Normal 11.5-14.9 [facility] Comment on above: Performed By: #### C DP, CMPX, FT4, LIPR, TSH #### [facility] [place] [address] [employer]: Artem Swann MD #### GLYHGB #### [address] [address] [employer]: Hiram Mccullough MD Hematocrit Volume Fraction (Bld) 40.3 % Low 41-53 [facility] Comment on above: Performed By: #### C DP, CMPX, FT4, LIPR, TSH #### [facility] [address] [place] [address] [employer]: Artem Swann MD #### GLYHGB #### [address] [address] [employer]: Hiram Mccullough MD Hemoglobin mass conc (Bld) 13.4 g/dL Low 13.5-17.5 [facility] Comment on above: Performed By: #### C DP, CMPX, FT4, LIPR, TSH #### [facility] [address] [place] [address] [employer]: Artem Swann MD #### GLYHGB #### [address] [address] [employer]: Hiram Mccullough MD Lymphocytes #/vol (Bld) 0.50 10*3/uL Low 1.0-4.8 [facility] Comment on above: Performed By: #### C DP, CMPX, FT4, LIPR, TSH #### [facility] [address] [place] [address] [employer]: Artem Swann MD #### GLYHGB #### [address] [address] [employer]: Hiram Mccullough MD Lymphocytes/100 WBC (Bld) 9 % Low 24-44 [facility] Comment on above: Performed By: #### C DP, CMPX, FT4, LIPR, TSH #### [facility] [address] [place] [address] [employer]: Artem Swann MD #### GLYHGB #### [address] [address] [employer]: Hiram Mccullough MD MCH Entitic mass (RBC) 30.7 pg Normal 26-34 [facility] Comment on above: Performed By: #### C DP, CMPX, FT4, LIPR, TSH #### [facility] [address] [place] [address] [employer]: Artem Swann MD #### GLYHGB #### [address] [address] [employer]: Hiram Mccullough MD MCHC mass conc (RBC) 33.3 g/dL Normal 31-37 [facility] Comment on above: Performed By: #### C DP, CMPX, FT4, LIPR, TSH #### [facility] [address] [place] [address] [employer]: Artem Swann MD #### GLYHGB #### [address] [address] [employer]: Hiram Mccullough MD MCV Entitic volume (RBC) 92.1 fL Normal 80-100 [facility] Comment on above: Performed By: #### C DP, CMPX, FT4, LIPR, TSH #### [facility] [address] [place] [address] [employer]: Artem Swann MD #### GLYHGB #### [address] [address] [employer]: Hiram Mccullough MD Monocytes #/vol (Bld) 0.40 10*3/uL Normal 0.1-1.3 [facility] Comment on above: Performed By: #### C DP, CMPX, FT4, LIPR, TSH #### [facility] [address] [place] [address] [employer]: Artem Swann MD #### GLYHGB #### [address] [address] [employer]: Hiram Mccullough MD Monocytes/100 WBC (Bld) 8 % High 1-7 [facility] Comment on above: Performed By: #### C DP, CMPX, FT4, LIPR, TSH #### [facility] [address] [place] [address] [employer]: Artem Sawnn MD #### GLYHGB #### [address] [address] [employer]: Hiram Mccullough MD Neutrophil (Seg) 83 % High 36-66 [facility] Comment on above: Performed By: #### C DP, CMPX, FT4, LIPR, TSH #### [facility] [address] [place] [address] [employer]: Artem Swann MD #### GLYHGB #### [address] [address] [employer]: Hiram Mccullough MD Platelet mean volume Entitic volume (Bld) 6.5 fL Normal 6.0-12.0 [facility] Comment on above: Performed By: #### C DP, CMPX, FT4, LIPR, TSH #### [facility] [address] [place] [address] [employer]: Artem Swann MD #### GLYHGB #### [address] [address] [employer]: Hiram Mccullough MD Platelets #/vol (Bld) 284 10*3/uL Normal 150-450 [facility] Comment on above: Performed By: #### C DP, CMPX, FT4, LIPR, TSH #### [facility] [address] [place] [address] [employer]: Artem Swann MD #### GLYHGB #### [address] [address] [employer]: Hiram Mccullough MD RBC #/vol (Bld) 4.38 10*6/uL Low 4.5-5.9 [facility] Comment on above: Performed By: #### C DP, CMPX, FT4, LIPR, TSH #### [facility] [address] [place] [address] [employer]: Artem Swann MD #### GLYHGB #### [address] [address] [employer]: Hiram Mccullough MD WBC #/vol (Bld) 5.3 10*3/uL Normal 3.5-11.0 [facility] Comment on above: Performed By: #### C DP, CMPX, FT4, LIPR, TSH #### [facility] [address] [place] [address] [employer]: Artem Swann MD #### GLYHGB #### [address] [address] [employer]: Hiram Mccullough MD Abs.Imm.Granulocyt e NOT REPORTED Normal 0.00-0.30 [facility] Comment on above: Performed By: #### C DP, CMPX, FT4, LIPR, TSH #### [facility] [address] [place] [address] [employer]: Artem Swann MD #### GLYHGB #### [address] [address] [employer]: Hiram Mccullough MD Auto Diff Performed NOT REPORTED Normal [facility] Comment on above: Performed By: #### C DP, CMPX, FT4, LIPR, TSH #### [facility] [address] [place] [address] [employer]: Artem Swann MD #### GLYHGB #### [address] [address] [employer]: Hiram Mccullough MD Immature granulocytes #/vol (Bld) NOT REPORTED Normal 0 [facility] Comment on above: Performed By: #### C DP, CMPX, FT4, LIPR, TSH #### [facility] [address] [place] [address] [employer]: Artem Swann MD #### GLYHGB #### [address] [address] [employer]: Hiram Mccullough MD NRBC Automated NOT REPORTED Normal [facility] Comment on above: Performed By: #### C DP, CMPX, FT4, LIPR, TSH #### [facility] [address] [place] [address] [employer]: Artem Swann MD #### GLYHGB #### [address] [address] [employer]: Hiram Mccullough MD Platelets #/vol (Bld) NOT REPORTED Normal [facility] Comment on above: Performed By: #### C DP, CMPX, FT4, LIPR, TSH #### [facility] [address] [place] [address] [employer]: Artem Swann MD #### GLYHGB #### [address] [address] [employer]: Hiram Mccullough MD RBC morphology finding Nom (Bld) NOT REPORTED Normal [facility] Comment on above: Performed By: #### C DP, CMPX, FT4, LIPR, TSH #### [facility] [address] [place] [address] [employer]: Artem Swann MD #### GLYHGB #### [address] [place] [address] [employer]: Hiram Mccullough MD WBC Morphology NOT REPORTED Normal [facility] Comment on above: Performed By: #### C DP, CMPX, FT4, LIPR, TSH #### [facility] [address] [place] [address] [employer]: Artem Swann MD #### GLYHGB #### [facility] [address] [place] [address] [employer]: Hiram Mccullough MD Comp Metabolic Pr/rfx MGon 0 11-09-2018 (cont.) Normal [facility] Comment on above: Result Comment: Aver age GFR for 60-69 years old: 85 mL/min/1.73sq m Chronic Kidney Disease: <60 mL/min/1.73sq m Kidney failure: <15 mL/min/1.73sq m eGFR calculated using average adult body mass. Additional eGFR calculator available at: http://www.Abine.Prosonix/multiple_crcl_2012.htm Performed By: #### C DP, CMPX, FT4, LIPR, TSH #### [facility] [address] [place] [address] [employer]: Artem Swann MD #### GLYHGB #### [address] [place] [address] [employer]: Hiram Mccullough MD Albumin mass conc 3.7 g/dL Normal 3.5-5.2 [facility] Comment on above: Performed By: #### C DP, CMPX, FT4, LIPR, TSH #### [facility] [address] [place] [address] [employer]: Artem Swann MD #### GLYHGB #### [address] [place] [address] [employer]: Hiram Mccullough MD Alkaline Phos 60 U/L Normal 40-129 [facility] Comment on above: Performed By: #### C DP, CMPX, FT4, LIPR, TSH #### [facility] [address] [place] [address] [employer]: Artem Swann MD #### GLYHGB #### [address] [address] [employer]: Hiram Mccullough MD ALT enzyme act/vol 29 U/L Normal 5-41 [facility] Comment on above: Performed By: #### C DP, CMPX, FT4, LIPR, TSH #### [facility] [address] [place] [address] [employer]: Artem Swann MD #### GLYHGB #### [address] [address] [employer]: Hiram Mccullough MD Anion gap molar conc 8 mmol/L Low 9-17 [facility] Comment on above: Performed By: #### C DP, CMPX, FT4, LIPR, TSH #### [facility] [address] [place] [address] [employer]: Artem Swann MD #### GLYHGB #### [address] [address] [employer]: Hiram Mccullough MD AST enzyme act/vol 30 U/L Normal <40 [facility] Comment on above: Performed By: #### C DP, CMPX, FT4, LIPR, TSH #### [facility] [address] [place] [address] [employer]: Artem Swann MD #### GLYHGB #### [address] [address] [employer]: Hiram Mccullough MD Bilirubin Ql (U) 0.44 mg/dL Normal 0.3-1.2 [facility] Comment on above: Performed By: #### C DP, CMPX, FT4, LIPR, TSH #### [facility] [address] [place] [address] [employer]: Artem Swann MD #### GLYHGB #### [address] [address] [employer]: Hiram Mccullough MD Calcium mass conc 8.9 mg/dL Normal 8.6-10.4 [facility] Comment on above: Performed By: #### C DP, CMPX, FT4, LIPR, TSH #### [facility] [address] [place] [address] [employer]: Artem Swann MD #### GLYHGB #### [address] [address] [employer]: Hiram Mccullough MD Chloride molar conc 101 mmol/L Normal 98-107 [facility] Comment on above: Performed By: #### C DP, CMPX, FT4, LIPR, TSH #### [facility] [address] [place] [address] [employer]: Artem Swann MD #### GLYHGB #### [address] [address] [employer]: Hiram Mccullough MD CO2 molar conc 28 mmol/L Normal 20-31 [facility] Comment on above: Performed By: #### C DP, CMPX, FT4, LIPR, TSH #### [facility] [address] [place] [address] [employer]: Artem Swann MD #### GLYHGB #### [address] [address] [employer]: Hiram Mccullough MD Creatinine mass conc 0.92 mg/dL Normal 0.70-1.20 [facility] Comment on above: Performed By: #### C DP, CMPX, FT4, LIPR, TSH #### [facility] [address] [place] [address] [employer]: Artem Swann MD #### GLYHGB #### [facility] [address] [place] [address] [employer]: Hiram Mccullough MD GFR, Amer >60 Normal >60 [facility] Comment on above: Performed By: #### C DP, CMPX, FT4, LIPR, TSH #### [facility] [address] [place] [address] [employer]: Artem Swann MD #### GLYHGB #### [address] [address] [employer]: Hiram Mccullough MD GFR,non Amer >60 Normal >60 [facility] Comment on above: Performed By: #### C DP, CMPX, FT4, LIPR, TSH #### [facility] [address] [place] [address] [employer]: Artem Swann MD #### GLYHGB #### [address] [place] [address] [employer]: Hiram Mccullough MD Glucose mass conc 111 mg/dL High 70-99 [facility] Comment on above: Performed By: #### C DP, CMPX, FT4, LIPR, TSH #### [facility] [address] [place] [address] [employer]: Artem Swann MD #### GLYHGB #### [address] [address] [employer]: Hiram Mccullough MD Potassium molar conc 4.5 mmol/L Normal 3.7-5.3 [facility] Comment on above: Performed By: #### C DP, CMPX, FT4, LIPR, TSH #### [facility] [address] [place] [address] [employer]: Artem Swann MD #### GLYHGB #### [address] [place] [address] [employer]: Hiram Mccullough MD Protein mass conc 6.8 g/dL Normal 6.4-8.3 [facility] Comment on above: Performed By: #### C DP, CMPX, FT4, LIPR, TSH #### [facility] [address] [place] [address] [employer]: Artem Swann MD #### GLYHGB #### [address] [place] [address] [employer]: Hiram Mccullough MD Sodium molar conc 137 mmol/L Normal 135-144 [facility] Comment on above: Performed By: #### C DP, CMPX, FT4, LIPR, TSH #### [facility] [address] [place] [address] [employer]: Artem Swann MD #### GLYHGB #### [address] [place] [address] [employer]: Hiram Mccullough MD Urea nitrogen mass conc 17 mg/dL Normal 8-23 [facility] Comment on above: Performed By: #### C DP, CMPX, FT4, LIPR, TSH #### [facility] [address] [place] [address] [employer]: Artem Swann MD #### GLYHGB #### [address] [place] [address] [employer]: Hiram Mccullough MD Albumin/Globulin mass ratio NOT REPORTED Normal 1.0-2.5 [facility] Comment on above: Performed By: #### C DP, CMPX, FT4, LIPR, TSH #### [facility] [address] [place] [address] [employer]: Artem Swann MD #### GLYHGB #### [address] [place] [address] [employer]: Hiram Mccullough MD BUN/CRE Ratio NOT REPORTED Normal - [facility] Comment on above: Performed By: #### C DP, CMPX, FT4, LIPR, TSH #### [facility] [address] [place] [address] [employer]: Artem Swann MD #### GLYHGB #### [address] [address] [employer]: Hiram Mccullough MD Staging: NOT REPORTED Normal [facility] Comment on above: Performed By: #### C DP, CMPX, FT4, LIPR, TSH #### [facility] [address] [place] [address] [employer]: Artem Swann MD #### GLYHGB #### [address] [address] [employer]: Hiram Mccullough MD Hemoglobin A1Con 11-09-2018 Hemoglobin A1c/Hemoglobin.tot al mass fraction (Bld) 6.5 % High 4.0-6.0 [facility] Comment on above: Performed By: #### C DP, CMPX, FT4, LIPR, TSH #### [facility] [address] [place] [address] [employer]: Artem Swann MD #### GLYHGB #### [address] [id number] [employer]: Hiram Mccullough MD Hemoglobin A1c/Hemoglobin.tot al mass fraction (Bld) 140 mg/dL Normal [facility] Comment on above: Result Comment: The ADA and AACC recommend providing the estimated average glucose result to permit better patient understanding of their HBA1c result. Performed By: #### C DP, CMPX, FT4, LIPR, TSH #### [facility] [address] [place] [address] [employer]: Artem Swann MD #### GLYHGB #### [address] [id number] [employer]: Hiram Mccullough MD Lipid Profileon 11-09-2018 Cholesterol in HDL mass conc 48 mg/dL Normal >40 [facility] Comment on above: Result Comment: HDL Guidelines: <40 Undesirable 40-59 Borderline >59 Desirable Performed By: #### C DP, CMPX, FT4, LIPR, TSH #### [facility] [address] [place] [address] [employer]: Artem Swann MD #### GLYHGB #### [address] [id number] [employer]: Hiram Mccullough MD Cholesterol in LDL mass conc 106 mg/dL Normal 0-130 [facility] Comment on above: Result Comment: LDL Guidelines: <100 Desirable 100-129 Near to/above Desirable 130-159 Borderline >159 Undesirable Direct (measured) LDL and calculated LDL are not interchangeable tests. Performed By: #### C DP, CMPX, FT4, LIPR, TSH #### [facility] [address] [place] [address] [employer]: Artem Swann MD #### GLYHGB #### [address] [place] [address] [employer]: Hiram Mccullough MD Cholesterol mass conc 177 mg/dL Normal <200 [facility] Comment on above: Result Comment: Cholesterol Guidelines: <200 Desirable 200-240 Borderline >240 Undesirable Performed By: #### C DP, CMPX, FT4, LIPR, TSH #### [facility] [address] [place] [address] [employer]: Artem Swann MD #### GLYHGB #### [address] [address] [employer]: Hiram Mccullough MD Cholesterol.total/ Cholesterol in HDL mass ratio 3.7 {ratio} Normal <5 [facility] Comment on above: Performed By: #### C DP, CMPX, FT4, LIPR, TSH #### [facility] [address] [place] [address] [employer]: Artem Swann MD #### GLYHGB #### [address] [address] [employer]: Hiram Mccullough MD Triglyceride mass conc 117 mg/dL Normal <150 [facility] Comment on above: Result Comment: Triglyceride Guidelines: <150 Desirable 150-199 Borderline 200-499 High >499 Very high Based on AHA Guidelines for fasting triglyceride, June 2012. Performed By: #### C DP, CMPX, FT4, LIPR, TSH #### [facility] [address] [place] [address] [employer]: Artem Swann MD #### GLYHGB #### [address] [address] [employer]: Hiram Mccullough MD Cholesterol in VLDL mass conc NOT REPORTED Normal 1-30 [facility] Comment on above: Performed By: #### C DP, CMPX, FT4, LIPR, TSH #### [facility] [address] [place] [address] [employer]: Artem Swann MD #### GLYHGB #### [address] [address] [employer]: Hiram Mccullough MD Thyroid Stim. Horm.on 2018 Thyrotropin Qn 1.13 m[IU]/L Normal 0.30-5.00 [facility] Comment on above: Performed By: #### C DP, CMPX, FT4, LIPR, TSH #### [facility] [address] [place] [address] [employer]: Artem Swann MD #### GLYHGB #### [address] [id number] [employer]: Hiram Mccullough MD Thyroxine, Freeon 11-09-2018 Thyroxine, Free 1.29 ng/dL Normal 0.93-1.70 [facility] Comment on above: Performed By: #### C DP, CMPX, FT4, LIPR, TSH #### [facility] [address] [place] [address] [employer]: Artem Swann MD #### GLYHGB #### [address] [address] [employer]: Hiram Mccullough MD Streptococcus Group A Cultur e-Pharyngeal Swabon 07-19-2017 Streptococcus Group A Culture-Pharyngeal Swab Negative Normal NEGATIVE [facility] Comment on above: Result Comment: A po sitive result indicates the specimen is presumptively positive for Group A Beta Strep by bacitracin method. Performed By: #### F DAMEON A/B MOLECUL ####[facility] [place] [address] Amylaseon 07-18-2017 Amylase 82 U/L Normal 30 - 110 [facility] Comment on above: Performed By: #### F DAMEON A/B MOLECUL ####[place] [place] [address] Basic Metabolic Panelon 07-04 eGFR (non-black) 107.69 Normal [facility] Comment on above: Performed By: #### B MP ####[address] [place] [address] eGFR (non-black) 70.21 Normal [facility] Comment on above: Result Comment: eGFR Interpretation:Normal: Equal to or greater than 60 mL/min/1.73 meters squaredChronic Kidney Disease: Less than 60 mL/min/1.73 meters squaredKidney Failure: Less than 15 mL/min/1.73 meters squared Performed By: #### B MP ####[address] [place] [address] eGFR (non-black) 87.6 Normal [facility] Comment on above: Result Comment: eGFR Interpretation:Normal: Equal to or greater than 60 mL/min/1.73 meters squaredChronic Kidney Disease: Less than 60 mL/min/1.73 meters squaredKidney Failure: Less than 15 mL/min/1.73 meters squared Performed By: #### B MP ####[address] [place] [address] eGFR (non-black) 93.16 Normal [facility] Comment on above: Result Comment: eGFR Interpretation:Normal: Equal to or greater than 60 mL/min/1.73 meters squaredChronic Kidney Disease: Less than 60 mL/min/1.73 meters squaredKidney Failure: Less than 15 mL/min/1.73 meters squared Performed By: #### B MP ####[address] [place] [address] eGFR (non-black) 100.97 Normal [facility] Comment on above: Performed By: #### B MP ####[id number] [place] [address] eGFR (non-black) 80.94 Normal [facility] Comment on above: Performed By: #### B MP ####[address] [place] [address] Age 61 year(s) Normal [facility] Comment on above: Performed By: #### B MP ####[address] [place] [address] Calcium 9.6 mg/dL Normal 8.4 - 10.2 [facility] Comment on above: Performed By: #### B MP ####[address] [place] [address] Chloride 102 mmol/L Normal 98 - 107 [facility] Comment on above: Performed By: #### B MP ####[address] [place] [address] CO2 25 mmol/L Normal 22 - 32 [facility] Comment on above: Performed By: #### B MP ####[address] [place] [address] Creatinine 0.90 mg/dL Normal 0.66 - 1.25 [facility] Comment on above: Performed By: #### B MP ####[address] [place] [address] Glucose mass conc 105 mg/dL High 65 - 100 [facility] Comment on above: Performed By: #### B MP ####[address] [place] [address] Potassium molar conc 4.4 mmol/L Normal 3.6 - 5.0 [facility] Comment on above: Performed By: #### B MP ####[address] [place] [address] Sodium 141 mmol/L Normal 135 - 145 [facility] Comment on above: Performed By: #### B MP ####[address] [place] [address] Urea nitrogen 13 mg/dL Normal 9 - 20 [facility] Comment on above: Performed By: #### B MP ####[address] [place] [address] CBC W Auto Differentialon Abs Neut # 6.2 10 X 3/mm Normal 1.8 - 7.7 [facility] Comment on above: Performed By: #### C BC Auto Diff ####[place] [address] [place] [address] Basophils/100 WBC Auto (Bld) 0 % Normal 0 - 1 [facility] Comment on above: Performed By: #### C BC Auto Diff ####[place] [place] [id number] [place] [address] Eosinophils 0.0 10 X 3/mm Normal 0.0 - 0.5 [facility] Comment on above: Performed By: #### C BC Auto Diff ####[place] [address] [place] [address] Eosinophils/100 leukocytes 1 % Normal 0 - 5 [facility] Comment on above: Performed By: #### C BC Auto Diff ####[place] [address] [place] [address] Erythrocyte distribution width Auto Ratio (RBC) 14.6 % High 11.5 - 14.5 [facility] Comment on above: Performed By: #### C BC Auto Diff ####[place] [place] [address] Erythrocytes (RBC) 4.68 10 X 6/mm Low 4.70 - 6.10 [facility] Comment on above: Performed By: #### C BC Auto Diff ####[address] [place] [address] Hematocrit (HCT) 42.2 % Normal 42.0 - 52.0 [facility] Comment on above: Performed By: #### C BC Auto Diff ####[place] [address] [place] [address] Hemoglobin mass conc (Bld) 14.5 g/dL Normal 13.0 - 16.0 [facility] Comment on above: Performed By: #### C BC Auto Diff ####[address] [place] [address] Lymphocytes 1.8 10 X 3/mm Normal 1.0 - 4.0 [facility] Comment on above: Performed By: #### C BC Auto Diff ####[place] [address] [place] [address] Lymphocytes/100 leukocytes 20 % Normal 20 - 40 [facility] Comment on above: Performed By: #### C BC Auto Diff ####[place] [address] [place] [address] MCH 30.9 pg Normal 27.0 - 35.0 [facility] Comment on above: Performed By: #### C BC Auto Diff ####[place] [address] [place] [address] MCHC mass conc (RBC) 34.3 g/dL Normal 32.0 - 36.0 [facility] Comment on above: Performed By: #### C BC Auto Diff ####[address] [place] [address] MCV 90.2 fL Normal 80.0 - 100.0 [facility] Comment on above: Performed By: #### C BC Auto Diff ####[address] [place] [address] Monocytes/100 leukocytes 9 % Normal 1 - 15 [facility] Comment on above: Performed By: #### C BC Auto Diff ####[address] [place] [place] [address] Neutrophils/100 WBC Auto (Bld) 70 % High 50 - 70 [facility] Comment on above: Performed By: #### C BC Auto Diff ####[address] [place] [address] Platelet mean volume (PMV) 8.1 fL Normal 7.5 - 11.5 [facility] Comment on above: Performed By: #### C BC Auto Diff ####[place] [place] [address] Platelets 237 uLx10 Normal 150 - 450 [facility] Comment on above: Performed By: #### C BC Auto Diff ####[address] [place] [address] WBC (Leukocytes) 8.9 10 X 3/mm Normal 3.7 - 11.0 [facility] Comment on above: Performed By: #### C BC Auto Diff ####[place] [address] [place] [address] CT RENAL STONEon 07-18-2017 CT RENAL STONE [...] electronically signed by: Dr. Kamron Alonso Normal [facility] Hepatic Function Panelon Alanine aminotransferase (ALT) 35 U/L Normal 8 - 72 [facility] Comment on above: Performed By: #### F DAMEON A/B MOLECUL ####[place] [place] [address] Albumin 4.6 g/dL Normal 3.5 - 5.0 [facility] Comment on above: Performed By: #### F DAMEON A/B MOLECUL ####[place] [address] Alkaline phosphatase (ALP) 45 U/L Normal 38 - 126 [facility] Comment on above: Performed By: #### F DAMEON A/B MOLECUL ####[place] [place] [address] Aspartate aminotransferase (AST) 25 U/L Normal 17 - 59 [facility] Comment on above: Performed By: #### F DAMEON A/B MOLECUL ####[place] [place] [address] Bilirubin (direct) 0.0 mg/dL Normal 0.0 - 0.2 [facility] Comment on above: Performed By: #### F DAMEON A/B MOLECUL ####[place] [place] [address] Bilirubin (total) 0.5 mg/dL Normal 0.2 - 1.3 [facility] Comment on above: Performed By: #### F DAMEON A/B MOLECUL ####[address] [place] [address] Protein 7.5 g/dL Normal 6.3 - 8.2 [facility] Comment on above: Performed By: #### F DAMEON A/B MOLECUL ####[address] [place] [address] Infectious Monoon 07-18-2017 Infectious [place] Negative Normal NEGATIVE [facility] Comment on above: Performed By: #### M NOE TEST ####[place] [place] [address] Internal Control ACCEPTABLE Normal [facility] Comment on above: Performed By: #### M NOE TEST ####[place] [address] [place] [address] Lipaseon 07-18-2017 Lipase 209 U/L Normal 23 - 300 [facility] Comment on above: Performed By: #### F DAMEON A/B MOLECUL ####[place] [place] [address] Lipid Panelon 07-18-2017 HDL/Cholesterol Ratio 3.3 Ratio Normal 1.0 - 4.5 [facility] Comment on above: Performed By: #### L IPID PANEL ####[place] [address] [place] [address] LDL Cholesterol 75 mg/dL Normal 20 - 100 [facility] Comment on above: Result Comment: If t he triglyceride value is >400 mg/dL, the calculated LDL value is not accurate. Performed By: #### L IPID PANEL ####[address] [address] [place] [address] Cholesterol 168 mg/dL Normal 100 - 200 [facility] Comment on above: Result Comment: <200 mg/dL is recommended cholesterol level. Performed By: #### L IPID PANEL ####[address] [address] [place] [address] HDL Cholesterol 51 mg/dL Normal [facility] Comment on above: Result Comment: Norm al HDL ranges:Males: >40 mg/dLFemales: >60 mg/dL Performed By: #### L IPID PANEL ####[address] [place] [address] Triglyceride 210 mg/dL High 10 - 150 [facility] Comment on above: Result Comment: <150 mg/dL is recommended triglyceride level. Performed By: #### L IPID PANEL ####[address] [address] [place] [address] PSA-Screenon 07-18-2017 PSA-Screen 1.07 ng/mL Normal 0.00 - 4.00 [facility] Comment on above: Result Comment: [facility] UTILIZES ORTHO [employer] PSA METHODOLOGY. DIFFERENT TEST METHODS CANNOT BE USED INTERCHANGEABLY. PSA RESULTS IN A GIVEN PATIENT SAMPLE DETERMINED WITH DIFFERENT TESTS AND FROM DIFFERENT MANUFACTURERS CAN VARY DUE TO DIFFERENCES IN TEST METHODS AND REAGENTS. Performed By: #### F DAMEON A/B MOLECUL ####[address] [address] [place] [address] TSHon 07-18-2017 Thyroid stimulating hormone (TSH) 1.050 mIU/mL Normal 0.470 - 4.680 [facility] Comment on above: Performed By: #### F DAMEON A/B MOLECUL ####[address] [address] [place] [address] Troponin I, Extra Sensitiveo n 07-18-2017 Age at Specimen Collection = Normal [facility] Comment on above: Performed By: #### T ROPONIN I ####[address] [address] [place] [address] Performed By: #### F DAMEON A/B MOLECUL ####[place] [address] [place] [address] Performed By: #### L IPID PANEL ####[address] [address] [place] [address] Troponin I.cardiac mass conc ng/mL Normal 0.000 - 0.034 [facility] Comment on above: Result Comment: Limi t of Detection: <0.012 ng/mLAt Risk of Myocardial Damage: 0.012-0.034 ng/mLProbable Myocardial Damage: >0.034 ng/mL Performed By: #### F DAMEON A/B MOLECUL ####[address] [address] [place] [address] Troponin I.cardiac mass conc ng/mL Normal 0.000 - 0.034 [facility] Comment on above: Result Comment: Limi t of Detection: <0.012 ng/mLAt Risk of Myocardial Damage: 0.012-0.034 ng/mLProbable Myocardial Damage: >0.034 ng/mL Performed By: #### T ROPONIN I ####[address] [address] [place] [address] Troponin I.cardiac mass conc ng/mL Normal 0.000 - 0.034 [facility] Comment on above: Result Comment: Limi t of Detection: <0.012 ng/mLAt Risk of Myocardial Damage: 0.012-0.034 ng/mLProbable Myocardial Damage: >0.034 ng/mL Performed By: #### T ROPONIN I ####[address] [place] [address] XR CHEST PA OR AP (1 VIEW)on [...] electronically signed by: Dr. Efra Young Normal [facility] Group A Strepon 07-17-2017 Rapid strep test Negative Normal NEGATIVE [facility] Comment on above: Performed By: #### R APID STREP SCR ####[address] [address] Internal Control ACCEPTABLE Normal [facility] Comment on above: Performed By: #### R APID STREP SCR ####[address] [place] [address] RAPID FLUon 07-17-2017 Internal Control ACCEPTABLE Normal [facility] Comment on above: Performed By: #### F DAMEON A/B MOLECUL ####[address] [place] [address] Flu A Negative Normal NEGATIVE [facility] Comment on above: Performed By: #### F DAMEON A/B MOLECUL ####[address] [address] [place] [address] Flu B Negative Normal NEGATIVE [facility] Comment on above: Result Comment: A po sitive result indicates the presence of Influenza A/B antigen. A negative result should be interpreted as presumptively negative for the presence of Influenza A/B antigen. Performed By: #### F DAMEON A/B MOLECUL ####[address] [address] [place] [address] Age at Specimen Collection = Normal [facility] Comment on above: Performed By: #### F DAMEON A/B MOLECUL ####[place] [address] [place] [address] Performed By: #### M NOE TEST ####[address] [place] [address] Performed By: #### B MP ####[address] [place] [address] Performed By: #### C BC Auto Diff ####[address] [place] [address] Performed By: #### U A w reflex C&S ####[address] [place] [address] Performed By: #### R APID STREP SCR ####[address] [place] [address] Performed By: #### T ROPONIN I ####[address] [place] [address] UA w reflex C&Son 07-17-2017 Urine, bacteria in sediment 1+ Abnormal [facility] Comment on above: Performed By: #### U A w reflex C&S ####[address] [address] [place] [address] Urine, crystals in sediment NONE SEEN Normal NONE SEEN [facility] Comment on above: Performed By: #### U A w reflex C&S ####[place] [address] [place] [address] Erythrocytes (RBC) 0-4/HPF Normal NONE SEEN [facility] Comment on above: Performed By: #### U A w reflex C&S ####[place] [address] [place] [address] WBC (Leukocytes) 0-4/HPF Normal NONE SEEN [facility] Comment on above: Performed By: #### U A w reflex C&S ####[place] [address] [place] [address] Urine, casts in sediment NONE SEEN Normal NONE SEEN [facility] Comment on above: Performed By: #### U A w reflex C&S ####[place] [address] [place] [address] Urine, epithelial cells in sediment Negative Normal NEGATIVE [facility] Comment on above: Performed By: #### U A w reflex C&S ####[place] [address] [place] [address] Urine, mucus presence in sediment Negative Normal NEGATIVE [facility] Comment on above: Performed By: #### U A w reflex C&S ####[place] [address] [place] [address] Reflex Culture? URINE CULTURE REFLEXED Normal [facility] Comment on above: Performed By: #### U A w reflex C&S ####[place] [address] [place] [address] Urine, leukocyte esterase presence Negative Normal NEGATIVE [facility] Comment on above: Performed By: #### U A w reflex C&S ####[place] [address] [place] [address] Urine, nitrite presence Negative Normal NEGATIVE [facility] Comment on above: Performed By: #### U A w reflex C&S ####[place] [address] [place] [address] Urobilinogen, Dipstick 0.2 Normal 0.2 - 1.0 [facility] Comment on above: Performed By: #### U A w reflex C&S ####[place] [address] [place] [address] Protein, Qual Negative Normal NEGATIVE [facility] Comment on above: Performed By: #### U A w reflex C&S ####[address] [address] [place] [address] Urine, pH 6.0 [pH] Normal 5.0 - 9.0 [facility] Comment on above: Performed By: #### U A w reflex C&S ####[address] [place] [address] Blood, Dipstick TRACE Abnormal NEGATIVE [facility] Comment on above: Performed By: #### U A w reflex C&S ####[place] [address] [place] [address] Urine, specific gravity <1.005 Abnormal 1.005 - 1.030 [facility] Comment on above: Performed By: #### U A w reflex C&S ####[place] [address] [place] [address] Bilirubin (direct) Negative Normal NEGATIVE [facility] Comment on above: Performed By: #### U A w reflex C&S ####[facility] [place] [address] Glucose mass conc Negative Normal NEGATIVE [facility] Comment on above: Performed By: #### U A w reflex C&S ####[facility] [place] [address] Ketone, Dipstick Negative Normal NEGATIVE [facility] Comment on above: Performed By: #### U A w reflex C&S ####[facility] [place] [address] Urine, character CLEAR Normal CLEAR [facility] Comment on above: Performed By: #### U A w reflex C&S ####[address] [address] [place] [address] Urine, color YELLOW Normal [facility] Comment on above: Performed By: #### U A w reflex C&S ####[address] [place] [address] Vital Signs Date Time Vital Sign Value Performing Clinician Facility 07-16-2024 11:30-0500 Body height 180.3 cm Gita Watts DO Work Phone: [facility] 07-16-2024 11:30-0500 Body mass index (BMI) [Ratio] 32.36 kg/m2 Gita Watts DO Work Phone: [facility] 07-16-2024 11:30-0500 Body weight 105.23 kg Gita Watts DO Work Phone: [facility] 07-16-2024 11:30-0500 Diastolic blood pressure 72 mm[Hg] Gita Watts DO Work Phone: [facility] 07-16-2024 11:30-0500 Heart rate 75 /min Gita Watts DO Work Phone: [facility] 07-16-2024 11:30-0500 Systolic blood pressure 142 mm[Hg] Gita Mac FULLER Work Phone: [facility] 06-26-2024 11:29-0400 Body mass index (BMI) [Ratio] 33.13 kg/m2 Alea Mckenzie MD Work Phone: [facility] 06-26-2024 11:29-0400 Body weight 104.74 kg Alea Mckenzie MD Work Phone: [facility] 06-26-2024 11:29-0400 Diastolic blood pressure 93 mm[Hg] Alea Mckenzie MD Work Phone: [facility] 06-26-2024 11:29-0400 Heart rate 65 /min Alea Mckenzie MD Work Phone: [facility] 06-26-2024 11:29-0400 Systolic blood pressure 162 mm[Hg] Alea Mckenzie MD Work Phone: [facility] 06-10-2024 11:24-0400 Body height 177.8 cm Leeann Castillo PROMOTIONAL REPRESENTATIVE-ASSEMBLER [employer] Work Phone: [facility] 06-10-2024 11:24-0400 Body mass index (BMI) [Ratio] 33.29 kg/m2 Leeann Castillo PROMOTIONAL REPRESENTATIVE-ASSEMBLER [employer] Work Phone: [facility] 06-10-2024 11:24-0400 Body temperature 97.81 [degF] Leeann Castillo PROMOTIONAL REPRESENTATIVE-ASSEMBLER [employer]AME [facility] 06-10-2024 11:24-0400 Body weight 105.23 kg Leeann Castillo PROMOTIONAL REPRESENTATIVE-ASSEMBLER [employer] Work Phone: [facility] 06-10-2024 11:24-0400 Diastolic blood pressure 60 mm[Hg] Leeann Castillo PROMOTIONAL REPRESENTATIVE-ASSEMBLER [employer]AME [facility] 06-10-2024 11:24-0400 Heart rate 74 /min Leeann Castillo PROMOTIONAL REPRESENTATIVE-ASSEMBLER [employer] [facility] 06-10-2024 11:24-0400 Respiratory rate 18 /min Leeann Castillo PROMOTIONAL REPRESENTATIVE-ASSEMBLER [employer] Work Phone: [facility] 06-10-2024 11:24-0400 SaO2% (BldA) [Mass fraction] 97 % Leeann Castillo PROMOTIONAL REPRESENTATIVE-ASSEMBLER [employer] Work Phone: [facility] 06-10-2024 11:24-0400 Systolic blood pressure 128 mm[Hg] Leeann Castillo PROMOTIONAL REPRESENTATIVE-ASSEMBLER [employer]AME Work Phone: [facility] 01-22-2024 14:17-0400 Body height 180.3 cm Gita Knowlesdon Work Phone: [facility] 01-22-2024 14:17-0400 Body mass index (BMI) [Ratio] 34.31 kg/m2 Gita Watts DO Work Phone: [facility] 01-22-2024 14:17-0400 Body weight 111.58 kg Gita Watts Work Phone: [facility] 01-22-2024 14:17-0400 Diastolic blood pressure 78 mm[Hg] Gita Mac Work Phone: [facility] 01-22-2024 14:17-0400 Heart rate 72 /min Gita Watts Work Phone: [facility] 01-22-2024 14:17-0400 Systolic blood pressure 152 mm[Hg] Gita Watts DO Work Phone: [facility] 11-26-2023 09:59-0400 Body height 177.8 cm Ashley YOUNG Work Phone: [facility] 11-26-2023 09:59-0400 Body mass index (BMI) [Ratio] 36.3 kg/m2 Ashley YOUNG [facility] 11-26-2023 09:59-0400 Body weight 114.76 kg Ashley Rodriguez PA [facility] 11-26-2023 09:59-0400 Diastolic blood pressure 71 mm[Hg] Ashley Namton PA [facility] 11-26-2023 09:59-0400 Heart rate 70 /min Ashley Namton PA [facility] 11-26-2023 09:59-0400 Systolic blood pressure 112 mm[Hg] Ashley aNmton PA [facility] 11-15-2023 13:54-0400 Body height 177.8 cm Leeann Castillo PROMOTIONAL REPRESENTATIVE-ASSEMBLER [employer] [facility]: [facility] 11-15-2023 13:54-0400 Body mass index (BMI) [Ratio] 36.3 kg/m2 Leeann Castillo PROMOTIONAL REPRESENTATIVE-ASSEMBLER [employer] Work Phone: [facility] 11-15-2023 13:54-0400 Body temperature 97.7 [degF] Leeann Castillo PROMOTIONAL REPRESENTATIVE-ASSEMBLER [employer] Work Phone: [facility] 11-15-2023 13:54-0400 Body weight 114.76 kg Leeann Castillo PROMOTIONAL REPRESENTATIVE-ASSEMBLER [employer] Work Phone: [facility] 11-15-2023 13:54-0400 Diastolic blood pressure 67 mm[Hg] Leeann Castillo PROMOTIONAL REPRESENTATIVE-ASSEMBLER [employer] Work Phone: [facility] 11-15-2023 13:54-0400 Heart rate 68 /min Leeann Castillo PROMOTIONAL REPRESENTATIVE-ASSEMBLER [employer] [facility] 11-15-2023 13:54-0400 Respiratory rate 20 /min Leeann Castillo PROMOTIONAL REPRESENTATIVE-ASSEMBLER [employer] Work Phone: [facility] 11-15-2023 13:54-0400 SaO2% (BldA) [Mass fraction] 98 % Leeann Castillo PROMOTIONAL REPRESENTATIVE-ASSEMBLER [employer] Work Phone: [facility] 11-15-2023 13:54-0400 Systolic blood pressure 118 mm[Hg] Leeann Rolando PROMOTIONAL REPRESENTATIVE-ASSEMBLER [employer]AME Work Phone: [facility] 11-01-2023 13:32-0500 Body height 177.8 cm Bobbi Steen MD Work Phone: [facility] 11-01-2023 13:32-0500 Body mass index (BMI) [Ratio] 35.58 kg/m2 Bobbi Steen MD Work Phone: [facility] 11-01-2023 13:32-0500 Body weight 112.49 kg Bobbi Steen MD Work Phone: [facility] 11-01-2023 13:32-0500 Diastolic blood pressure 82 mm[Hg] Bobbi Steen MD Work Phone: [facility] 11-01-2023 13:32-0500 Heart rate 72 /min Bobbi Steen MD Work Phone: [facility] 11-01-2023 13:32-0500 Systolic blood pressure 131 mm[Hg] Bobbi Steen MD Work Phone: [facility] 10-17-2023 12:39-0500 Body height 180.3 cm Chip Gavin PROMOTIONAL REPRESENTATIVE-ASSEMBLER [employer] Work Phone: [facility] 10-17-2023 12:39-0500 Body mass index (BMI) [Ratio] 34.73 kg/m2 Chip Gavin PROMOTIONAL REPRESENTATIVE-ASSEMBLER [employer] Work Phone: [facility] 10-17-2023 12:39-0500 Body weight 112.95 kg Chip Gavin PROMOTIONAL REPRESENTATIVE-ASSEMBLER [employer] Work Phone: [facility] 10-17-2023 12:39-0500 Diastolic blood pressure 82 mm[Hg] Chip Gavin PROMOTIONAL REPRESENTATIVE-ASSEMBLER [employer] Work Phone: [facility] 10-17-2023 12:39-0500 Heart rate 76 /min Chip Gavin PROMOTIONAL REPRESENTATIVE-ASSEMBLER [employer]AME Work Phone: [facility] 10-17-2023 12:39-0500 Systolic blood pressure 142 mm[Hg] Chip Gavin PROMOTIONAL REPRESENTATIVE-ASSEMBLER [employer]AME Work Phone: [facility] 10-15-2023 14:36-0500 Body height 180.3 cm Maxime De Jesus PROMOTIONAL REPRESENTATIVE-PROGRAM DEVELOPER Work Phone: [facility] 10-15-2023 14:36-0500 Body mass index (BMI) [Ratio] 34.61 kg/m2 Maxime De Jesus PROMOTIONAL REPRESENTATIVE-PROGRAM DEVELOPER Work Phone: [facility] 10-15-2023 14:36-0500 Body temperature 97.3 [degF] Maxime De Jesus APRN-PROGRAM DEVELOPER Work Phone: [facility] 10-15-2023 14:36-0500 Body weight 112.49 kg Maxime De Jesus APRN-PROGRAM DEVELOPER Work Phone: [facility] 10-15-2023 14:36-0500 Diastolic blood pressure 68 mm[Hg] Maxime De Jesus PROMOTIONAL REPRESENTATIVE-PROGRAM DEVELOPER Work Phone: [facility] 10-15-2023 14:36-0500 SaO2% (BldA) [Mass fraction] 95 % Maxime De Jesus APRN-PROGRAM DEVELOPER Work Phone: [facility] 10-15-2023 14:36-0500 Systolic blood pressure 120 mm[Hg] Maxime De Jesus APRN-PROGRAM DEVELOPER Work Phone: [facility] 10-09-2023 12:00-0500 Body temperature 98.1 [degF] [facility] 10-09-2023 12:00-0500 Diastolic blood pressure 73 mm[Hg] [facility] 10-09-2023 12:00-0500 Heart rate 75 /min [facility] 10-09-2023 12:00-0500 Respiratory rate 18 /min [facility] 10-09-2023 12:00-0500 SaO2% (BldA) [Mass fraction] 98 % [facility] 10-09-2023 12:00-0500 Systolic blood pressure 123 mm[Hg] [facility] 10-09-2023 01:32-0500 Body weight 111.4 kg [facility] 10-06-2023 11:39-0500 Body height 177.8 cm [facility] 10-06-2023 10:53-0500 Diastolic blood pressure 97 mm[Hg] [facility] 10-06-2023 10:53-0500 Heart rate 79 /min [facility] 10-06-2023 10:53-0500 Respiratory rate 18 /min [facility] 10-06-2023 10:53-0500 SaO2% (BldA) [Mass fraction] 99 % [facility] 10-06-2023 10:53-0500 Systolic blood pressure 175 mm[Hg] [facility] 10-06-2023 04:04-0500 Body weight 113 kg [facility] 10-06-2023 04:00-0500 Body temperature 97.6 [degF] [facility] 10-04-2023 08:21-0500 Body height 180.34 cm [facility] 09-19-2023 13:09-0500 Body height 193 cm Yari Verhoff PA-C Work Phone: [facility] 09-19-2023 13:09-0500 Body mass index (BMI) [Ratio] 31.4 kg/m2 Yari Verhoff PA-C Work Phone: [facility] 09-19-2023 13:09-0500 Body weight 117.03 kg Yari Verhoff PA-C Work Phone: [facility] 09-19-2023 13:09-0500 Diastolic blood pressure 58 mm[Hg] Yari Verhoff PA-C Work Phone: [facility] 09-19-2023 13:09-0500 Heart rate 69 /min Yari Verhoff PA-C Work Phone: [facility] 09-19-2023 13:09-0500 Respiratory rate 20 /min Yari Lozanoff PA-C [facility] Phone[facility] 09-19-2023 13:09-0500 Systolic blood pressure 141 mm[Hg] Yari Lozanoff PA-C Work Phone: [facility] 03-15-2023 15:53-0400 Body height 180.34 cm Tom Paniagua Work Phone: [facility] DO Work Phone: 03-15-2023 15:53-0400 Body mass index (BMI) [Ratio] 34.9 kg/m2 Tom Sully Siva Work Phone: [facility] DO Work Phone: 03-15-2023 15:53-0400 Body surface area Derived from formula 2.32 m2 Tom Paniagua Work Phone: [facility] DO Work Phone: 03-15-2023 15:53-0400 Body weight 113.51 kg Tom Paniagua Work Phone: [facility] DO Work Phone: 03-15-2023 15:53-0400 Diastolic blood pressure 60 mm[Hg] Tom Paniagua Work Phone: [facility] DO Work Phone: 03-15-2023 15:53-0400 Heart rate 75 /min Tom Paniagua Work Phone: [facility] [address] DO Work Phone: 03-15-2023 15:53-0400 Systolic blood pressure 132 mm[Hg] Tom Paniagua Work Phone: [facility] DO Work Phone: 01-04-2023 19:28-0400 Body height 180.3 cm Etta Oakes CNP Work Phone: [facility] 01-04-2023 19:28-0400 Body mass index (BMI) [Ratio] 33.91 kg/m2 Etta Oakes CNP Work Phone: [facility] 01-04-2023 19:28-0400 Body temperature 97.9 [degF] Etta Oakes CNP Work Phone: [facility] 01-04-2023 19:28-0400 Body weight 110.27 kg Etta Oakes CNP Work Phone: [facility] 01-04-2023 19:28-0400 Diastolic blood pressure 81 mm[Hg] Etta Oakes CNP Work Phone: [facility] 01-04-2023 19:28-0400 Heart rate 88 /min Etta Oakes CNP Work Phone: [facility] 01-04-2023 19:28-0400 Respiratory rate 16 /min Etta Oakes CNP Work Phone: [facility] 01-04-2023 19:28-0400 SaO2% (BldA) [Mass fraction] 97 % Etta Oakes CNP Work Phone: [facility] 01-04-2023 19:28-0400 Systolic blood pressure 137 mm[Hg] Etta Oakes CNP Work Phone: [facility] 07-06-2022 12:30-0400 Body height 181.61 cm Lula Del Rosario Other [employer] Other 07-06-2022 12:30-0400 Body mass index (BMI) [Ratio] 34.65 kg/m2 Lula Del Rosario Other [employer] Other 07-06-2022 12:30-0400 Body temperature 97.3 [degF] Lula Del Rosario Other [employer] Other 07-06-2022 12:30-0400 Body weight 114.31 kg Lula Del Rosario Other [employer] Other 07-06-2022 12:30-0400 Diastolic blood pressure 96 mm[Hg] Lula Del Rosario Other [employer] Other 07-06-2022 12:30-0400 SaO2% (BldA) [Mass fraction] 98 % Lula Del Rosario Other [employer] Other 07-06-2022 12:30-0400 Systolic blood pressure 154 mm[Hg] Lula Del Rosario Other [employer] Other 11-20-2021 19:15-0400 Diastolic blood pressure 94 mm[Hg] No [facility] Work Phone: 11-20-2021 19:15-0400 Heart rate 99 /min No [facility] Work Phone: 11-20-2021 19:15-0400 Respiratory rate 16 /min No [facility] Work Phone: 11-20-2021 19:15-0400 SaO2% (BldA) [Mass fraction] 99 % No [facility] Work Phone: 11-20-2021 19:15-0400 Systolic blood pressure 191 mm[Hg] No [facility] Work Phone: 11-20-2021 14:56-0400 Body height 180.34 cm No [facility] Work Phone: 11-20-2021 14:56-0400 Body mass index (BMI) [Ratio] 34.2 kg/m2 No [facility] Work Phone: 11-20-2021 14:56-0400 Body temperature 98.2 [degF] No [facility] Work Phone: 11-20-2021 14:56-0400 Body weight 111.13 kg No Provider [facility] Work Phone: Encounters Encounter Date Encounter Type Care Provider Facility Start: 07-16-2024 End: 07-16-2024 ambulatory [facility] Start: 07-16-2024 End: 07-16-2024 Office outpatient visit 25 minutes [facility] Work Phone: [facility] Comment on above: CAD, multiple vessel ; History of coronary artery bypass graft; History of PTCA; Mixed hyperlipidemia; Primary hypertension; Body mass index (BMI) of 32.0 to 32.9 in adult; Never smoked cigarettes; Type 2 diabetes mellitus without complication, with long-term current use of insulin ([facility]); Anxiety Start: 07-03-2024 End: 07-03-2024 Telephone encounter Tim Ibrahim MD Work Phone: [facility] Start: 06-26-2024 End: 06-26-2024 ambulatory [facility] Start: 06-26-2024 End: 06-26-2024 Office outpatient visit 25 minutes Alea Mckenzie MD Work Phone: [facility] Comment on above: Type 2 diabetes wendy itus with diabetic peripheral angiopathy without gangrene, with long-term current use of insulin ([facility]) (Primary Dx) Start: 06-10-2024 End: 06-10-2024 Emergency department patient visit [facility] Start: 06-10-2024 End: 06-10-2024 ambulatory [facility] Start: 06-10-2024 End: 06-10-2024 Office outpatient visit 40 minutes [facility] PROMOTIONAL REPRESENTATIVE-ASSEMBLER GOLD FRAME Work Phone: [facility]/Dede Morse MD Comment on above: Suspected cauda equi na syndrome (Primary Dx); Neck pain; Bilateral low back pain with sciatica, sciatica laterality unspecified, unspecified chronicity; Incontinence of feces, unspecified fecal incontinence type; B12 deficiency Start: 06-05-2024 End: 06-05-2024 [facility] Start: 06-02-2024 End: 06-02-2024 ambulatory [facility] S VIDYAHER Not Available Start: 05-19-2024 End: 05-19-2024 ambulatory [facility] S RUSHER Not Available Start: 05-01-2024 End: 05-01-2024 ambulatory RAJAN LANDAVERDE Not Available Start: 04-18-2024 End: 04-18-2024 ambulatory [facility] S RUSHER Not Available Start: 04-11-2024 End: 04-11-2024 ambulatory [facility] S RUSHER Not Available Start: 04-07-2024 End: 04-07-2024 ambulatory [facility] S RUSHER Not Available Start: 04-03-2024 End: 04-03-2024 ambulatory [facility] Start: 04-02-2024 End: 04-02-2024 ambulatory [facility] Start: 03-31-2024 End: 03-31-2024 ambulatory [facility] Start: 03-27-2024 End: 04-03-2024 ambulatory [facility] Start: 03-26-2024 End: 04-03-2024 ambulatory [facility] Start: 03-24-2024 End: 04-03-2024 ambulatory [facility] Start: 03-20-2024 End: 03-20-2024 ambulatory [facility] Start: 03-19-2024 End: 03-19-2024 ambulatory [facility] Start: 03-17-2024 End: 03-17-2024 ambulatory [facility] Start: 03-15-2024 End: 03-15-2024 Emergency department patient visit Skyler Balbuena Facility:[facility] Start: 03-14-2024 End: 03-14-2024 ambulatory [facility] Start: 03-14-2024 End: 03-14-2024 ambulatory [facility] Start: 03-13-2024 End: 03-13-2024 ambulatory [facility] Start: 03-12-2024 End: 03-12-2024 ambulatory [facility] Start: 03-10-2024 End: 03-10-2024 ambulatory [facility] Start: 03-05-2024 End: 03-05-2024 ambulatory [facility] Start: 03-03-2024 End: 03-03-2024 ambulatory [facility] Start: 02-27-2024 End: 03-03-2024 ambulatory [facility] Start: 02-25-2024 End: 02-25-2024 ambulatory [facility] Start: 02-21-2024 End: 03-03-2024 ambulatory [facility] Start: 02-20-2024 End: 03-03-2024 ambulatory [facility] Start: 02-18-2024 End: 02-18-2024 ambulatory [facility] Start: 02-14-2024 End: 02-14-2024 ambulatory [facility] Start: 02-13-2024 End: 02-13-2024 ambulatory [facility] Start: 02-11-2024 End: 02-11-2024 ambulatory [facility] Start: 02-07-2024 End: 02-07-2024 ambulatory [facility] Start: 02-06-2024 End: 02-06-2024 ambulatory [facility] Start: 02-06-2024 End: 02-06-2024 ambulatory [facility] Start: 02-04-2024 End: 02-04-2024 ambulatory [facility] Start: 01-31-2024 End: 01-31-2024 ambulatory [facility] Start: 01-30-2024 End: 01-30-2024 ambulatory [facility] Start: 01-23-2024 End: 02-02-2024 ambulatory [facility] Start: 01-22-2024 End: 01-22-2024 ambulatory [facility] Start: 01-22-2024 End: 01-22-2024 Office outpatient visit 25 minutes Gita Knowlesdon DO Work Phone: [facility] Comment on above: CAD, multiple vessel ; Obesity (BMI 30-39.9); Primary hypertension; Type 2 diabetes mellitus without complication, with long-term current use of insulin (Multi); Depression, unspecified depression type; Old PA (myocardial infarction); History of PTCA; Anxiety; Mixed hyperlipidemia Start: 01-21-2024 End: 01-21-2024 ambulatory [facility] Start: 01-17-2024 End: 01-17-2024 ambulatory [facility] Start: 01-16-2024 End: 01-16-2024 ambulatory [facility] Start: 01-14-2024 End: 01-14-2024 ambulatory [facility] Start: 01-10-2024 End: 01-10-2024 ambulatory [facility] Start: 01-09-2024 End: 01-09-2024 ambulatory IAN CHATMAN Not Available Start: 01-09-2024 End: 01-09-2024 ambulatory [facility] Start: 01-07-2024 End: 01-07-2024 ambulatory [facility] Start: 01-02-2024 End: 02-02-2024 ambulatory BOBBI STEEN [facility] Start: 12-31-2023 End: 12-31-2023 ambulatory DEDE [facility] Ambulatory [facility] Start: 12-31-2023 End: 12-31-2023 ambulatory [facility] Start: 12-27-2023 End: 12-27-2023 ambulatory [facility] Start: 12-26-2023 End: 12-26-2023 ambulatory [facility] Start: 12-24-2023 End: 12-24-2023 ambulatory [facility] Start: 12-19-2023 End: 01-02-2024 ambulatory [facility] Start: 12-17-2023 End: 12-17-2023 ambulatory [facility] Start: 12-14-2023 End: 12-14-2023 ambulatory [facility] Start: 12-14-2023 End: 12-14-2023 ambulatory [facility] Start: 12-11-2023 End: 12-11-2023 ambulatory SHOBHA Ngozi DELONG [facility] Start: 12-07-2023 Orders Only Shobha ozuna PROMOTIONAL REPRESENTATIVE-ASSEMBLER [employer] FRAME Work Phone: [facility] Comment on above: Type 2 diabetes wendy itus with diabetic peripheral angiopathy without gangrene, with long-term current use of insulin ([facility]) (Primary Dx) Start: 12-06-2023 End: 12-06-2023 ambulatory [facility] Start: 12-05-2023 Telephone encounter Alea mckeon MD Work Phone: [facility] Start: 12-03-2023 End: 01-02-2024 [facility] Start: 11-28-2023 Telephone encounter Cl Gonzalez [facility] Start: 11-27-2023 Telephone encounter Leeann sanchez PROMOTIONAL REPRESENTATIVE-ASSEMBLER GOLD FRAME Work Phone: [facility]/Dede Morse MD Start: 11-26-2023 End: 11-26-2023 ambulatory MC CHATMAN Not Available Start: 11-26-2023 End: 11-26-2023 Office outpatient new 45 minutes Ashley YOUNG Work Phone: [facility] Comment on above: Numbness in both leg s; History of urinary retention Start: 11-26-2023 End: 11-26-2023 ambulatory ASHLEY RODRIGUEZ [facility] Start: 11-23-2023 End: 11-23-2023 ambulatory MC CHATMAN Not Available Start: 11-22-2023 Telephone encounter Shobha esparza PROMOTIONAL REPRESENTATIVE-ASSEMBLER GOLD FRAME Work Phone: [facility] Start: 11-19-2023 Telephone encounter Leeann Camdenjim sanchez PROMOTIONAL REPRESENTATIVE-ASSEMBLER GOLD FRAME Work Phone: [facility]/Dede Morse MD Start: 11-16-2023 End: 11-16-2023 ambulatory [facility] Start: 11-15-2023 End: 11-15-2023 Office outpatient new 45 minutes Hamilton Rolando PROMOTIONAL REPRESENTATIVE-ASSEMBLER GOLD FRAME Work Phone: [facility]/Dede Morse MD Comment on above: Type 2 diabetes wendy itus with diabetic peripheral angiopathy without gangrene, with long-term current use of insulin ([facility]) (Primary Dx); OSEI (dyspnea on exertion); Bilateral lower extremity edema; RUQ abdominal pain; Tendinopathy of left rotator cuff; Mixed hyperlipidemia; Screening PSA (prostate specific antigen); Primary hypertension; CAD, multiple vessel; ST elevation myocardial infarction (STEMI) of inferior wall ([facility]); Moderate episode of recurrent major depressive disorder ([facility]) Start: 11-15-2023 End: 11-15-2023 ambulatory [facility] Start: 11-06-2023 End: 12-03-2023 ambulatory [facility] Start: 11-01-2023 End: 11-01-2023 Postop follow up visit related to original px Bobbi Steen MD Work Phone: [facility] Comment on above: Numbness in both leg s (Primary Dx); Lumbar pain Start: 11-01-2023 End: 11-01-2023 ambulatory [facility] Start: 10-24-2023 End: 10-24-2023 ambulatory CHIP GAVIN [facility] Start: 10-17-2023 End: 10-17-2023 Office outpatient visit 25 minutes Chip Kunz [place] PROMOTIONAL REPRESENTATIVE-ASSEMBLER GOLD FRAME Work Phone: [facility] Comment on above: CAD, multiple vessel (Primary Dx); Primary hypertension; Mixed hyperlipidemia; Ischemic cardiomyopathy; Type 2 diabetes mellitus without complication, with long-term current use of insulin ([facility]); Obesity (BMI 30-39.9); Major psychotic depression, recurrent ([facility]); Moderate episode of recurrent major depressive disorder ([facility]) Start: 10-17-2023 End: 10-17-2023 ambulatory [facility] Start: 10-15-2023 End: 10-15-2023 Transitional care manage srvc 7 day discharge Maxime De Jesus PROMOTIONAL REPRESENTATIVE-PROGRAM DEVELOPER Work Phone: [facility] Internal Medicine - Family Medicine Comment on above: Status post lumbar l aminectomy (Primary Dx); Chronic diastolic CHF (congestive heart failure) ([facility]); ST elevation myocardial infarction (STEMI) of inferior wall ([facility]); Type 2 diabetes mellitus with diabetic peripheral angiopathy without gangrene, with long-term current use of insulin ([facility]); Primary hypertension; History of urinary retention; Other constipation Start: 10-15-2023 End: 10-15-2023 ambulatory MAXIME DE JESUS [facility] Start: 10-06-2023 Non-patient / Non-visit [facility] Work Phone: Start: 10-06-2023 End: 10-09-2023 Evaluation and management of inpatient Myrna Interiano Facility:[facility] Start: 09-26-2023 Non-patient / Non-visit [facility] Work Phone: Start: 09-26-2023 End: 10-06-2023 Evaluation and management of inpatient Bobby Portillo Facility:[facility] Start: 09-26-2023 End: 09-26-2023 Evaluation and management of inpatient TOM Virk [facility] Start: 09-24-2023 Telephone encounter Gilles Dominguez PA-C Work Phone: [facility] Comment on above: Hospital Follow-up Start: 09-22-2023 End: 09-26-2023 Evaluation and management of inpatient CHRIS HERNANDEZ [facility] Start: 09-21-2023 End: 09-26-2023 Evaluation and management of inpatient BOBBI STEEN [facility] Start: 09-21-2023 End: 09-21-2023 ambulatory TOM Virk [facility] Start: 09-20-2023 End: 09-26-2023 ambulatory POLLY BELL [facility] Start: 09-20-2023 End: 09-26-2023 ambulatory POLLY BELL [facility] Start: 09-20-2023 End: 09-26-2023 ambulatory NATHAN [facility] Start: 09-20-2023 Encounter for other preprocedural examination [facility] Start: 09-20-2023 End: 09-26-2023 Evaluation and management of inpatient [facility] Start: 09-19-2023 End: 09-21-2023 Emergency department patient visit [facility] Start: 09-19-2023 End: 09-20-2023 Emergency department patient [facility] Start: 09-19-2023 End: 09-19-2023 Patient encounter procedure Wade Damian PA Work Phone: [facility] Comment on above: Spinal stenosis of l umbar region without neurogenic claudication Start: 09-19-2023 End: 09-19-2023 ambulatory YARI PETER [facility] Start: 09-19-2023 End: 09-21-2023 Emergency department patient visit SCOTT SANTOS [facility] Start: 09-17-2023 End: 09-17-2023 ambulatory [facility] Start: 09-14-2023 End: 09-14-2023 ambulatory [facility] Start: 09-13-2023 Refill Gisselle Dominic [facility] - [facility] Medicine Comment on above: Type 2 diabetes wendy itus with diabetic peripheral angiopathy without gangrene, with long-term current use of insulin ([facility]) Start: 09-11-2023 End: 09-11-2023 ambulatory [facility] Start: 09-04-2023 End: 10-04-2023 ambulatory [facility] Start: 08-10-2023 End: 09-03-2023 ambulatory [facility] Start: 04-26-2023 Patient encounter procedure Tom Paniagua Work Phone: [facility] 600 DO Work Phone: Start: 03-15-2023 Office outpatient vi sit 25 minutes Tom Ruckerkrunal Work Phone: [facility] 250 DO Work Phone: Start: 03-15-[address] Yujose ramons Facility: Start: 01-04-2023 End: 01-08-2023 ambulatory [facility] Start: 01-04-2023 End: 01-04-2023 Office outpatient new [facility] [place] ASSEMBLER GOLD FRAME Work Phone: [facility] [place] Comment on above: Cough, unspecified t ype (Primary Dx) Start: 09-27-2022 End: 09-27-2022 ambulatory Lula Del Rosario Other [employer] Other Start: 09-27-2022 Telephone encounter Lula Del Rosario [facility] Start: 07-06-2022 Office outpatient vi sit 25 minutes Lula Del Rosario [facility] Start: 07-06-2022 End: 07-06-2022 ambulatory DO Tom Siva Work Phone: [facility] [employer] Other Start: 07-06-2022 End: 07-06-2022 Patient encounter procedure DO Tom Paniagua Work Phone: [facility] Start: 04-03-2022 End: 04-04-[address] TOM PANIAGUA Facility:[facility] Start: 12-19-2021 End: 12-20-[address] TOM PANIAGUA Facility:[facility] Start: 12-18-2021 End: 12-18-[address] CHAN GAVIN Facility:[facility] Start: 11-20-2021 End: 11-20-2021 Emergency department patient visit No Provider [facility] Start: 10-04-[address] TOM [...] 05-20-2020 Subsequent hospital visit by physician Barbara [facility] Work Phone: Radiology Comment on above: Primary osteoarthrit is of right knee [M17.11] Start: 04-26-2020 End: 04-26-2020 Subsequent hospital visit by physician Barbara Kraus 1 Work Phone: Radiology Comment on above: Nuclear senile catar act, unspecified laterality [H25.10] Start: 11-08-2018 End: 11-13-2018 Evaluation and management of inpatient [facility] Start: 11-08-2018 Emergency department patient visit [facility] Start: 07-31-2017 Ambulatory KARRI BARAKAT [facility] Start: 07-17-2017 End: 07-19-2017 Ambulatory CHAN ROMAN Facility:[facility] Start: 07-17-2017 End: 07-18-2017 Emergency department patient visit CHAN ROMAN Facility:[facility] Procedures Date Procedure Procedure Detail Performing Clinician Start: 06-26-2024 Hemoglobin glycosylated a1c Alea Mckenzie MD Work Phone: Start: 06-10-2024 Adult depression scr eening assessment Leeann Castillo PROMOTIONAL REPRESENTATIVE-ASSEMBLER G[employer]AME Work Phone: Start: 03-14-2024 Adult depression scr eening assessment Pattie Santiago Start: 01-22-2024 History of percutane ous transluminal coronary angioplasty History of PTCA Gita Watts DO Work Phone: Start: 11-26-2023 Urnls dip stick/tabl et rgnt auto w/o microscopy Ashley YOUNG Work Phone: Start: 11-26-2023 MEASURE POST VOID RESIDUAL Ashley YOUNG Work Phone: Start: 11-15-2023 Follow-up visit Follow-up LEEANN CASTILLO Start: 10-15-2023 Adult depression scr eening assessment Maxime De Jesus PROMOTIONAL REPRESENTATIVE-PROGRAM DEVELOPER Work Phone: Start: 09-20-2023 Adult depression scr eening assessment Gilles Dominguez PA-C Work Phone: Start: 09-19-2023 Gluc bld gluc mntr d ev cleared fda spec home use Yari Peter PA-C Work Phone: Start: 09-11-2023 Adult depression scr eening assessment Gisselle Dominic [facility] Start: 08-30-2023 History of coronary artery bypass grafting History of coronary artery bypass graft Chip Gavin PROMOTIONAL REPRESENTATIVE-ASSEMBLER [employer]AME Work Phone: Start: 01-04-2023 Radiologic exam ches t 2 views Etta Oakes ASSEMBLER [employer]AME Work Phone: Start: 10-11-2022 Microalbumin [Mass/v olume] in Urine by Test strip Etta Spencer BUSBY Work Phone: Start: 05-20-2020 Radiologic examinati on knee 3 views Alcon Lundberg PA-C Work Phone: Start: 04-01-2020 Antibody screen Comment on above: Performed By: #### T [id number] #### [place] [address] Start: 11-13-2018 DISCHARGE PATIENT DARIAN HITCHCOCK JUBRYANNA Start: 11-09-2018 Assay of free thyroxine MELODIE [facility] Start: 11-09-2018 Assay of thyroid stimulating hormone tsh [facility] Start: 11-09-2018 Blood count complete auto&auto difrntl wbc [facility] Start: 11-09-2018 Hemoglobin glycosylated a1c [facility] Start: 11-09-2018 [facility]id [facility] Start: 11-09-2018 Lipid 1996 panel - S jason or Plasma Xr 1 Work Phone: Start: 11-08-2018 DIET GENERAL [facility] Start: 11-08-2018 Drug screen class list a RINABAILEY JUBRYANNA Start: 11-08-2018 FULL CODE RINABAILEY JUBRYANNA Start: 11-08-2018 IP CONSULT TO HOSPITALIST DARIANKORTNEYPATSY DODDURBANO Start: 11-08-2018 MONITOR DARIANCORETTA JUBRYANNA Start: 11-08-2018 PATIENT STATUS (DIRECT) MELODIE POP Start: 11-08-2018 TOBACCO CESSATION EDUCATION [facility] Start: 11-08-2018 VITAL SIGNS [facility] Start: 11-08-2018 PATIENT STATUS (DIRECT) [facility] Start: 06-28-2011 History of coronary artery bypass grafting S/P CABG (coronary artery bypass graft) Xr 1 Work Phone: Start: 05-05-2011 H/O: surgery Other states following surgery of eye and adnexa Xr 1 Work Phone: Arthroplasty of knee Tom Paniagua Work Phone: Biopsy of skin Tom Paniagua Work Phone: Cataract surgery Tom hector Work Phone: Coronary artery bypa ss graft [...] Tom Paniagua Work Phone: Total colonoscopy Tom hummel Work Phone: Plan of Treatment Date Care Activity Detail Author Start: 2032 RSV Vaccine (1 - 1-dose 75+ series) RSV Vaccine (1 - 1-dose 75+ series) [facility] Start: 06-26-2025 Adult BMI Screening Adult BMI Screening [facility] Start: 06-26-2025 Tobacco Screening Tobacco Screening [facility] Start: 06-10-2025 Adult BMI Screening Adult BMI Screening [facility] Start: 06-10-2025 Depression Screening Depression Screening [facility] Start: 06-10-2025 Tobacco Screening Tobacco Screening [facility] Start: 04-03-2025 Adult BMI Screening Adult BMI Screening [facility] Start: 04-03-2025 Tobacco Screening Tobacco Screening [facility] Start: 03-19-2025 End: 03-19-2025 Patient encounter procedure 03/19/2025 11:20 AM EDT Office Visit [facility] [address] [facility] [address] [place] [id number] Gita Watts DO [address] [place] [address] [facility] Start: 03-14-2025 Depression Screening Depression Screening [facility] Start: 01-14-2025 End: 01-14-2025 Patient encounter procedure 01/14/2025 11:15 AM EDT Office Visit [facility] [address] [place] [address] Alea Mckenzie MD [address] [place] [address] [facility] Start: 12-30-2024 Fall Risk Screening Fall Risk Screening [facility] Start: 12-05-2024 Adult BMI Screening Adult BMI Screening [facility] Start: 12-01-2024 Tobacco Screening Tobacco Screening [facility] Start: 11-25-2024 Adult BMI Screening Adult BMI Screening [facility] Start: 11-25-2024 Tobacco Screening Tobacco Screening [facility] Start: 11-14-2024 Adult BMI Screening Adult BMI Screening [facility] Start: 10-31-2024 Adult BMI Screening Adult BMI Screening [facility] Start: 10-31-2024 Tobacco Screening Tobacco Screening [facility] Start: 10-17-2024 End: 10-17-2024 Patient encounter procedure 10/17/2024 10:45 AM EST Office Visit [facility] [address] [place] [address] Shobha Delong, PROMOTIONAL REPRESENTATIVE-ASSEMBLER GOLD [employer]AME [address] [place] [address] [facility] Start: 10-15-2024 Adult BMI Screening Adult BMI Screening [facility] Start: 10-15-2024 Depression Screening Depression Screening [facility] Start: 10-15-2024 Fall Risk Screening Fall Risk Screening [facility] Start: 10-15-2024 Tobacco Screening Tobacco Screening [facility] Start: 10-06-2024 Echocardiography [facility] Start: 09-25-2024 Adult BMI Screening Adult BMI Screening [facility] Start: 09-21-2024 Tobacco Screening Tobacco Screening [facility] Start: 09-20-2024 Depression Screening Depression Screening [facility] Start: 09-19-2024 Adult BMI Screening Adult BMI Screening [facility] Start: 09-19-2024 Tobacco Screening Tobacco Screening [facility] Start: 09-11-2024 Adult BMI Screening Adult BMI Screening [facility] Start: 09-11-2024 Depression Screening Depression Screening [facility] Start: 09-11-2024 Fall Risk Screening Fall Risk Screening [facility] Start: 09-11-2024 Tobacco Screening Tobacco Screening [facility] Start: 08-07-2024 Diabetic foot examination Diabetic Foot Exam [facility] Start: 07-30-2024 End: 07-30-2024 Patient encounter procedure 07/30/2024 10:30 AM EST Office Visit [facility] [address] [place] [address] [address] [facility] [place] [phone] Mary Orozco I PA [address] [place] [address] [facility] Start: 07-16-2024 End: 07-16-2024 Patient encounter procedure 07/16/2024 11:20 AM EST Office Visit [facility] [address] [facility] [address] [place] [address] Gita Watts, [address] [facility] [address] [place] [address] [facility] Start: 06-11-2024 Screening for malignant neoplasm of colon [facility] Start: 06-10-2024 End: 06-10-2024 Patient encounter procedure 06/10/2024 1:45 PM EDT Office Visit [facility] [address] [facility] [address] [place] [phone] Shobha Delong, PROMOTIONAL REPRESENTATIVE-ASSEMBLER [employer] [address] [facility] [address] [place] [address] [facility] Start: 06-10-2024 End: 06-10-2024 Patient encounter procedure 06/10/2024 11:20 AM EDT Office Visit [facility]/Dede Morse MD [address] [facility] [address] [place] [phone] Leeann Castillo APRN-ASSEMBLER [employer] [address] [facility] [address] [place] [address] [facility]/Dede Morse MD Start: 05-04-2024 Covid-19 Vaccine ( season) Covid-19 Vaccine ( season) [facility] Start: 05-04-2024 Influenza vaccination [facility] Start: 04-22-2024 End: 04-22-2024 Patient encounter procedure 04/22/2024 3:30 PM EDT [facility] [address] [facility] [address] [facility] Start: 04-17-2024 Medicare Annual Wellness Visit Medicare Annual Wellness Visit [facility] Start: 02-06-2024 End: 02-06-2024 Patient encounter procedure 02/06/2024 3:15 PM EDT Office Visit [facility] [address] [place] [address] [address] [facility] [place] [phone] Corin Blankenship MD [facility] [place] [address] [facility] Start: 01-22-2024 End: 01-22-2024 Patient encounter procedure 01/22/2024 1:50 PM EDT Office Visit [facility] [address] [facility] [address] [place] [phone] Gita Watts, [address] [facility] [address] [place] [address] [facility] Start: 12-16-2023 End: 10-17-2024 Alanine aminotransferase [Enzymatic activity/volume] in Serum or Plasma by With P-5'-P Alanine Aminotransferase Lab Routine Mixed hyperlipidemia Expected: 12/16/2023 (Approximate), Expires: 10/17/2024 [facility] Work Phone: Comment on above: Expected: 12/16/2023 (Approximate), Expi res: 10/17/2024 Start: 12-16-2023 End: 10-17-2024 Aspartate aminotransferase [Enzymatic activity/volume] in Serum or Plasma by With P-5'-P Aspartate Aminotransferase Lab Routine Mixed hyperlipidemia Expected: 12/16/2023 (Approximate), Expires: 10/17/2024 [facility] Work Phone: Comment on above: Expected: 12/16/2023 (Approximate), Expi res: 10/17/2024 Start: 12-16-2023 End: 10-17-2024 Lipid 1996 panel - Serum or Plasma Lipid Panel Lab Routine Mixed hyperlipidemia Expected: 12/16/2023 (Approximate), Expires: 10/17/2024 [facility] Work Phone: Comment on above: Expected: 12/16/2023 (Approximate), Expi res: 10/17/2024 Start: 12-14-2023 End: 12-14-[address] [facility]/Dede Morse MD Start: 12-11-2023 End: 12-11-2023 Nutrition therapy 12/11/2023 3:00 PM EDT Support Visit [facility] [address] [phone] Apolinar Mckenzie LD [facility] Start: 12-06-2023 End: 12-06-2023 Patient encounter procedure 12/06/2023 7:00 AM EDT Appointment [facility] [address] [place] [phone] [facility] Start: 12-06-2023 Subsequent hospital visit by physician 12/06/2023 7:00 AM EDT Hospital Encounter [facility] [address] [facility] [place] [address] [facility] Start: 12-03-2023 End: 12-03-2023 Patient encounter procedure 12/03/2023 9:00 AM EDT Appointment [facility] [address] [place] [phone] [facility] Start: 11-26-2023 End: 11-26-2023 Patient encounter procedure 11/26/2023 10:00 AM EDT Office Visit [facility] [address] [place] [phone] Ashley Rodriguez PA [address] [place] [address] [facility] Start: 11-23-2023 End: [...] pain Start: 11-10-2023 Lipid panel Lipid Screening [facility] Start: 11-07-2023 End: 11-07-2023 Patient encounter procedure 11/07/2023 10:45 AM EST Office Visit [facility] [address] [phone] Alea Mckenzie MD [address] [place], [place] [phone] [facility] Start: 11-01-2023 End: [...] PM EST Office Visit [facility] [address] [place] [address] Bobbi Steen MD [address] [facility] [address] [place] [phone] [facility] Start: 10-24-2023 End: 10-17-2024 Basic metabolic 2000 panel - Serum or Plasma Basic Metabolic Panel Lab Routine CAD, multiple vessel Primary hypertension Expected: 10/24/2023 (Approximate), Expires: 10/17/2024 [facility] Service Area Work Phone: Comment on above: Expected: 10/24/2023 (Approximate), Expi res: 10/17/2024 Start: 10-11-2023 Urine screening for protein [facility] Start: 10-09-2023 [facility] Start: 10-06-2023 [facility] Start: 10-06-2023 Referral to cardiac rehabilitation program [facility] Start: 10-06-2023 Hospital admission [facility] Start: 10-06-2023 End: 10-06-2023 [facility] Start: 10-02-2023 Referral to psychiatrist [facility] Start: 09-27-2023 End: 09-27-2023 Patient encounter procedure 09/27/2023 10:00 AM EST Office Visit [facility] Medicine [address] [place] [address] Tom Paniagua, [address] [place] [address] [facility] Start: 09-26-2023 Hospital admission [facility] Start: 09-26-2023 Referral to clinical firestopper installer [facility] Start: 09-20-2023 End: 09-20-2023 Patient encounter procedure 09/20/2023 11:45 AM EST Office Visit [facility] [address] [place] [address] Alea Mckenzie MD [address] [place] [address] [facility] Start: 09-19-2023 FUV, Provider: Charan Bautista, Status: Pen, Time: 3:00 PM FUV, Provider: Charan Bautista, Status: Pen, Time: 3:00 PM [facility] 250 DO Work Phone: Start: 09-19-2023 End: 09-19-2023 Patient encounter procedure 09/19/2023 1:00 PM EST Office Visit [facility] [address] [place] [phone] Wade Damian PA [address] [place] [address] Yari Peter PA-C [address] [place] [address] [facility] Start: 09-03-2023 Advance Directive Discussion Advance Directive Discussion [facility] Start: 05-04-2023 COVID-19 Vaccine ( season) COVID-19 Vaccine ( season) [facility] Start: 05-04-2023 Influenza vaccination [facility] Start: 04-13-2023 Diabetes Screening Diabetes Screening [facility] Start: 02-16-2023 Hemoglobin A1c measurement A1C [facility] Start: 2022 Fall risk assessment Falls Risk Assessment [facility] Start: 2022 Pneumococcal Vaccine: 65+ (2 of 2 - PCV) Pneumococcal Vaccine: 65+ (2 of 2 - PCV) [facility] Start: 07-02-2020 Hemoglobin A1c measurement Diabetes: Hemoglobin A1C [facility] Start: 2017 Hepatitis B Vaccines (1 of 3 - Risk 3-dose series) Hepatitis B Vaccines (1 of 3 - Risk 3-dose series) [facility] Start: 2017 RSV High Risk: (Elderly (60+) or Population) (1 - Risk 60-74 years 1-dose series) RSV High Risk: (Elderly (60+) or Population) (1 - Risk 60-74 years 1-dose series) [facility] Start: 2017 RSV patients and/or patients aged 60+ years (1 - 1-dose 60+ series) RSV patients and/or patients aged 60+ years (1 - 1-dose 60+ series) [facility] Start: 2012 Prostate specific antigen measurement Prostate Cancer Screening Discussion [facility] Start: 09-14-2012 Pneumococcal Vaccine: 65+ Years (2 - PCV) Pneumococcal Vaccine: 65+ Years (2 - PCV) [facility] Start: 09-14-2012 Pneumococcal Vaccine: 65+ Years (2 of 2 - PCV) Pneumococcal Vaccine: 65+ Years (2 of 2 - PCV) [facility] Start: 09-14-2012 Pneumococcal Vaccine: Age 65+ (2 - PCV) Pneumococcal Vaccine: Age 65+ (2 - PCV) [facility] Start: 2007 Administration of herpes zoster vaccine Zoster Vaccines (1 of 2) [facility] Start: 2007 Administration of varicella zoster vaccine Zoster (Shingles) Vaccine (1 of 2) [employer] [facility] Start: 2007 Screening for malignant neoplasm of colon Flexible sigmoidoscopy [facility] Start: 2007 Shingrix Vaccine (1 of 2) Shingrix Vaccine (1 of 2) [facility] Start: 2007 Zoster Vaccines (1 of 2) Zoster Vaccines (1 of 2) [facility] Start: 2002 Screening for malignant neoplasm of colon [facility] Start: 1979 DTaP/Tdap/Td Vaccines (1 - Tdap) DTaP/Tdap/Td Vaccines (1 - Tdap) [facility] Start: 1976 DTaP,Tdap and Td Vaccines (1 - Tdap) DTaP,Tdap and Td Vaccines (1 - Tdap) [facility] Start: 1976 Hepatitis A Vaccines (1 of 2 - Risk 2-dose series) Hepatitis A Vaccines (1 of 2 - Risk 2-dose series) [facility] Start: 1976 Urine microalbumin profile DTaP,Tdap,Td Vaccine (1 - Tdap) [facility] Start: 1976 Urine screening for protein Diabetes: Urine Protein Screening [facility] Start: 1975 Adult BMI Follow Up Plan Adult BMI Follow Up Plan [facility] Start: 1975 Anxiety Screening Anxiety Screening [facility] Start: 1975 Depression Screening Depression Screening [facility] Start: 1975 Hepatitis C screening Hepatitis C Screening [facility] Start: 1972 HIV screening HIV Screening [facility] Start: 1969 Depression screening using PHQ-9 (Patient Health Questionnaire 9) score Depression Screening (PHQ-2/9) [facility] Start: 1967 Diabetic foot examination [facility] Start: 1967 Glaucoma screening [facility] Start: 1960 History and physical examination, annual for health maintenance Wellness Visit [facility] Start: 1958 MMR Vaccines (1 of 1 - Standard series) MMR Vaccines (1 of 1 - Standard series) [facility] Start: 03-23-1958 COVID-19 Vaccine (#1) COVID-19 Vaccine (#1) [facility] Start: 1957 Creatinine measurement Creatinine Level [facility] Start: 1957 Glaucoma screening Diabetic Ophthalmology Exam [facility] Start: 1957 Lipid panel Lipid Panel [facility] Start: 1957 Medicare Annual Wellness Visit Medicare Annual Wellness Visit (AWV) [facility] Start: 1957 Potassium measurement Potassium Level [facility] Start: 1957 Prostate specific antigen measurement PSA Level [facility] Start: 1957 Screening for malignant neoplasm of colon [facility] Start: 1957 Tetanus vaccination Tetanus: Every 10yrs [facility] aPTT in Platelet poo r plasma by Coagulation assay [facility] End: 12-06-2024 C-peptide C-peptide Lab Routine Type 2 diabetes mellitus with diabetic peripheral angiopathy without gangrene, with long-term current use of insulin ([facility]) 1 Occurrences starting 12/07/2023 until 12/06/2024 [facility] Work Phone: Comment on above: 1 Occurrences starting 12/07/2023 until 12/06/2024 End: 06-10-2025 Cyanocobalamin vitamin b-12 Vitamin B12 Lab Routine B12 deficiency 1 Occurrences starting 06/10/2024 until 06/10/2025 [facility] Work Phone: Comment on above: 1 Occurrences starting 06/10/2024 until 06/10/2025 INR in Platelet poor plasma by Coagulation assay [facility] Patient Education [facility] Work Phone: Patient referral [facility] Work Phone: Prothrombin time (PT) [facility] Immunizations Immunization Date Immunization Notes Care Provider Jevon coello 06-03-2012 influenza virus vacc ine, unspecified formulation Tom Paniagua Work Phone: [facility] 250 DO Work Phone: 09-14-2011 pneumococcal polysaccharide vaccine, 23 valent [facility]aniagua [facility] DO Work Phone: 06-03-2011 influenza virus vacc ine, unspecified formulation Tom Paniagua Work Phone: [facility] DO Work Phone: influenza virus vacc ine, unspecified formulation Tom Paniagua Work Phone: [facility] 250 DO Work Phone: Comment on above: 2009 Payers Payer Category Payer Medicare (Managed Care) [employer] [id number] 09-03-2023 Medicare HMO [employer] [id number] 09-03-2023 Private Health Insurance [id number] 02-01-2021 Medicare [id number] 12-02-2020 Unknown [id number] 09-03-2019 Unknown [id number]. 1.13.385.2. [id number] 01-08-2012 Unknown [id number] 09-03-1959 Medicare [id number] 09-03-1959 Self-pay [id number] 09-03-1959 Unknown [id number] 1957 Unknown [id number] 2.16.840.1.193875.3.579.2. 176 1957 Unknown [id number] 2.16.840.1.340071.3.579.2. 593 1957 Unknown [id number] 2.16.840.1.632562.3.579.2. 593 1957 Unknown [id number] 2.16.840.1.748041.3.579.2. 593 1957 Unknown [id number] 2.16.840.1.344234.3.579.2. 593 1957 Unknown [id number] 2.16.840.1.694350.3.579.2. 593 1957 Unknown [id number] 2.16.840.1.822819.3.579.2. 593 1957 Unknown [id number] 2.16.840.1.795905.3.579.2. 593 1957 Unknown [id number] 2.16.840.1.005433.3.579.2. 593 1957 Unknown [id number] 2.16.840.1.486852.3.579.2. 593 1957 Unknown [id number] 2.16.840.1.186550.3.579.2. 593 1957 Unknown [id number] 2.16.840.1.885955.3.579.2. 593 1957 Unknown [id number] 2.16.840.1.846365.3.579.2. 903 1957 Unknown [id number] 2.16.840.1.286457.3.579.2. 903 1957 Unknown [id number] 2.16.840.1.088711.3.579.2. 356 1957 Unknown [id number] 2.16.840.1.632213.3.579.2. 718 1957 Unknown [id number] 2.16.840.1.016780.3.579.2. 1286 1957 Unknown [id number] 2.16.840.1.676337.3.579.2. 1286 1957 Unknown [id number] 2.16.840.1.340176.3.579.2. 1286 1957 Unknown [id number] 2.16.840.1.151673.3.579.2. 1286 1957 Unknown [id number] 2.16.840.1.250639.3.579.2. 1286 1957 Unknown [id number] 2.16.840.1.910529.3.579.2. 1286 1957 Unknown [id number] 2.16.840.1.669988.3.579.2. 1286 1957 Unknown [id number] 2.16.840.1.311516.3.579.2. 1286 1957 Unknown [id number] 2.16.840.1.260395.3.579.2. 1286 1957 Unknown [id number] 2.16.840.1.082560.3.579.2. 1286 1957 Unknown [id number] 2.16.840.1.589829.3.579.2. 1286 1957 Unknown [id number] 2.16.840.1.061698.3.579.2. 1285 1957 Unknown [id number] 2.16.840.1.722311.3.579.2. 1285 1957 Unknown [id number] 2.16.840.1.508509.3.579.2. 1285 1957 Unknown [id number] 2.16.840.1.662041.3.579.2. 1285 1957 Unknown [id number] 2.16.840.1.065930.3.579.2. 1285 1957 Unknown [id number] 2.16.840.1.591468.3.579.2. 1285 1957 Unknown [id number] 2.16.840.1.467528.3.579.2. 1285 1957 Unknown [id number] 2.16.840.1.976922.3.579.2. 1285 1957 Unknown [id number] 2.16.840.1.076777.3.579.2. 1285 1957 Unknown [id number] 2.16.840.1.249278.3.579.2. 1285 1957 Unknown [id number] 2.16.840.1.991027.3.579.2. 1285 1957 Unknown [id number] 2.16.840.1.275751.3.579.2. 1285 1957 Unknown [id number] 2.16.840.1.294731.3.579.2. 1285 1957 Unknown [id number] 2.16.840.1.455621.3.579.2. 1285 1957 Unknown [id number] 2.16.840.1.112841.3.579.2. 1285 1957 Unknown [id number] 2.16.840.1.332693.3.579.2. 1285 1957 Unknown [id number] 2.16.840.1.864473.3.579.2. 1285 1957 Unknown [id number] 2.16.840.1.062071.3.579.2. 1285 1957 Unknown [id number] 2.16.840.1.775854.3.579.2. 1285 1957 Unknown [id number] 2.16.840.1.663556.3.579.2. 1285 1957 Unknown [id number] 2.16.840.1.732984.3.579.2. 1285 1957 Unknown [id number] 2.16.840.1.140078.3.579.2. 1285 1957 Unknown [id number] 2.16.840.1.462873.3.579.2. 1285 1957 Unknown [id number] 2.16.840.1.132813.3.579.2. 1285 1957 Unknown [id number] 2.16.840.1.781729.3.579.2. 1285 1957 Unknown [id number] 2.16.840.1.323461.3.579.2. 1285 1957 Unknown [id number] 2.16.840.1.755346.3.579.2. 1285 1957 Unknown [id number] 2.16.840.1.051220.3.579.2. 1285 1957 Unknown [id number] 2.16.840.1.008093.3.579.2. 1285 1957 Unknown [id number] 2.16.840.1.425262.3.579.2. 1285 1957 Unknown [id number] 2.16.840.1.449397.3.579.2. 1285 1957 Unknown [id number] 2.16.840.1.559142.3.579.2. 1285 1957 Unknown [id number] 2.16.840.1.504177.3.579.2. 1285 1957 Unknown [id number] 2.16.840.1.289821.3.579.2. 1285 1957 Unknown [id number] 2.16.840.1.394920.3.579.2. 1285 1957 Unknown [id number] 2.16.840.1.728794.3.579.2. 1285 1957 Unknown [id number] 2.16.840.1.110066.3.579.2. 1285 1957 Unknown [id number] 2.16.840.1.841070.3.579.2. 1285 1957 Unknown [id number] 2.16.840.1.707054.3.579.2. 1285 1957 Unknown [id number] 2.16.840.1.100811.3.579.2. 1285 1957 Unknown [id number] 2.16.840.1.578113.3.579.2. 1285 1957 Unknown [id number] 2.16.840.1.326731.3.579.2. 1285 1957 Unknown [id number] 2.16.840.1.000373.3.579.2. 1285 1957 Unknown [id number] 2.16.840.1.468461.3.579.2. 1285 1957 Unknown [id number] 2.16.840.1.382182.3.579.2. 1285 1957 Unknown [id number] 2.16.840.1.532672.3.579.2. 1285 1957 Unknown [id number] 2.16.840.1.555709.3.579.2. 1286 1957 Unknown [id number] 2.16.840.1.583436.3.579.2. 1285 1957 Unknown [id number] 2.16.840.1.967482.3.579.2. 128 1957 Unknown [id number] 2.16.840.1.755209.3.579.2. 128 1957 Unknown [id number] 2.16.840.1.162949.3.579.2. 1285 1957 Unknown [id number] 2.16.840.1.523280.3.579.2. 1285 1957 Unknown [id number] 2.16.840.1.515582.3.579.2. 1285 1957 Unknown [id number] 2.16.840.1.909082.3.579.2. 1285 1957 Unknown [id number] 2.16.840.1.425903.3.579.2. 1285 1957 Unknown [id number] 2.16.840.1.269465.3.579.2. 1285 1957 Unknown [id number] 2.16.840.1.111651.3.579.2. 1285 1957 Unknown [id number] 2.16.840.1.043425.3.579.2. 1285 1957 Unknown [id number] 2.16.840.1.909310.3.579.2. 1258 1957 Unknown [id number] 2.16.840.1.665715.3.579.2. 1258 1957 Unknown [id number] 2.16.840.1.605948.3.579.2. 9 1957 Unknown [id number] 2.16.840.1.039974.3.579.2. 1259 1957 Unknown [id number] 2.16.840.1.308193.3.579.2. 1258 1957 Unknown [id number] 2.16.840.1.764106.3.579.2. 125 1957 Unknown [id number] 2.16.840.1.529117.3.579.2. 1258 1957 Unknown [id number] 2.16.840.1.288447.3.579.2. 1258 1957 Unknown [id number] 2.16.840.1.081472.3.579.2. 1258 1957 Unknown [id number] 2.16.840.1.484789.3.579.2. 1258 1957 Unknown [id number] 2.16.840.1.746082.3.579.2. 1258 1957 Unknown [id number] 2.16.840.1.366593.3.579.2. 1285 1957 Unknown [id number] 2.16.840.1.192919.3.579.2. 1285 1957 Unknown [id number] 2.16.840.1.618869.3.579.2. 1285 1957 Unknown [id number] 2.16.840.1.006285.3.579.2. 1285 1957 Unknown [id number] 2.16.840.1.294660.3.579.2. 128 1957 Unknown [id number] 2.16.840.1.646460.3.579.2. 1285 1957 Unknown [id number] 2.16.840.1.681428.3.579.2. 128 1957 Unknown [id number] 2.16.840.1.885266.3.579.2. 1285 1957 Unknown [id number] 2.16.840.1.389894.3.579.2. 128 1957 Unknown [id number] 2.16.840.1.472012.3.579.2. 1285 1957 Unknown [id number] 2.16.840.1.385211.3.579.2. 1285 1957 Unknown [id number] 2.16.840.1.718332.3.579.2. 1285 1957 Unknown [id number] 2.16.840.1.037804.3.579.2. 1285 1957 Unknown [id number] 2.16.840.1.717518.3.579.2. 1285 1957 Unknown [id number] 2.16.840.1.076188.3.579.2. 1285 1957 Unknown [id number] 2.16.840.1.187403.3.579.2. 1285 1957 Unknown [id number] 2.16.840.1.624881.3.579.2. 1285 1957 Unknown [id number] 2.16.840.1.839315.3.579.2. 1285 1957 Unknown [id number] 2.16.840.1.994676.3.579.2. 1285 1957 Unknown [id number] 2.16.840.1.935926.3.579.2. 1285 1957 Unknown [id number] 2.16.840.1.911710.3.579.2. 1285 1957 Unknown [id number] 2.16.840.1.594156.3.579.2. 1243 1957 Unknown [id number] 2.16.840.1.374682.3.579.2. 124 1957 Unknown [id number] 2.16.840.1.857932.3.579.2. 1244 Unknown [id number] 2.16.840.1.223551.3.579.2. 531 Unknown [id number] 2.16.840.1.926947.3.579.2. 531 Social History Date Type Detail Facility Start: 11-20-2021 End: 01-22-2024 Tobacco smoking status SCIS Never smoked tobacco (finding) [facility] Start: 11-20-2021 never [facility] Work Phone: Start: 11-20-2021 does not use [facility] Work Phone: Start: 1955 Sex Assigned At Male F [facility] Start: 03-11-2014 End: 01-22-2024 Sex Assigned At [facility] Tobacco smoking stat us SCIS Tobacco smoking consumption unknown [facility] Start: 03-11-2014 End: 01-22-2024 History of Social function [facility] Comment on above: 1-2 CUPS OF COFFEE D AILY; Start: 1955 Sex Assigned At Not on file [facility] Start: 06-27-2022 End: 01-22-2024 Tobacco use and exposure Smokeless tobacco non-user [facility] Start: 09-11-2023 End: 09-19-2023 Alcohol intake Current non-drinker of alcohol (finding) [facility] Do you belong to any clubs or organizations such as yazidi groups, unions, fraternal or athletic groups, or school groups? Yes [facility] Are you now , , , , never or living with a partner? [facility] How often to you hav e a drink containing alcohol? Never [facility] How many standard dr inks containing alcohol do you have on a typical day? Patient does not drink [facility] How hard is it for y ou to pay for the very basics like food, housing, medical care, and heating Not very hard [facility] Do you feel stress - tense, restless, nervous, or anxious, or unable to sleep at night because your mind is troubled all the time - these days [OSQ] Rather much [facility] Start: 09-24-2023 End: 06-26-2024 Alcohol intake Ex-drinker (finding) [facility] Start: 10-17-2023 End: 07-16-2024 Alcohol intake Lifetime non-drinker (finding) [facility] Work Phone: Start: 03-27-2020 End: 07-16-2024 Exposure to SARS-CoV-2 (event) Not sure [facility] Start: 02-14-2021 Gender identity Identifies as male gender (finding) [facility] Start: 02-14-2021 Sexual orientation Choose not to dis close [facility] Start: 04-20-2020 End: 05-20-2020 Exposure to SARS-CoV-2 (event) Unable to assess [facility] Start: 04-08-2015 Sex Male (finding) [facility] Medical Equipment Procedure Code Equipment Code Equipment Origin al Text Equipment Identifier Dates Test blood sugar 3 times a day [id number] Start: 02-02-2023 End: 10-15-2023 Test blood sugar 3 times a day [id number] Start: 02-02-2023 Cap Lck Creo Spn l Thrd Ns Rpl Special [id number] - [id number] Start: 09-21-2023 Graft Bn Cllr Bn Mtrx Lg 10cc Vivigen Frmbl Vivigen Rpl [id number] - [id number] Start: 09-21-2023 Bridger Spnl Creo 45 mm 5.5mm Ti Crv Ns Rpl Special [id number] - [id number] Start: 09-21-2023 Screw Bn 50mm 6.5mm Cnn Spne Creo Ns Lf - [id number] Start: 09-21-2023 CL STENT CAMILLA FRONTIER 2.5 X 22 FDA Start: 10-06-2023 CL STENT CAMILLA FRONTIER 2.75 X 30 FDA Start: 10-06-2023 CL STENT CAMILLA FRONTIER 3.5 X 12 FDA Start: 10-06-2023 CL STENT CAMILLA FRONTIER 4.0 X 38 FDA Start: 10-06-2023 Femoral artery closure plug/patch, synthetic polymer [id number] [facility] Start: 10-06-2023 Bone Cement Palacos Radiopaque W/Gentamicin - [id number] Start: 09-11-2011 Comment on above: Description: bone ce ment with 0.5g gentamycin Cement Simplex P Bone Radiopaque Full Dose Sterile - [id number] Start: 04-12-2020 Cement Simplex P Bone Radiopaque Full Dose Sterile - [id number] Start: 04-12-2020 Hrv-Ae-Z-Kind Implant - [id number] Start: 09-11-2011 Comment on above: Description: Nex Gen Femoral Compnent Eie-Uu-U-Kind Implant - [id number] Start: 09-11-2011 Comment on above: Description: Nex Gen Tibial component Lsg-Yl-I-Kind Implant - [id number] Start: 09-11-2011 Comment on above: Description: CR VICENTE CULAR SURFACE REGULAR CONSTRAINT Persona Imp Knee Surf Artc R 10 8-[facility] [id number] Start: 04-12-2020 Lens Iol Ultrase rt 11.5 - [id number] Start: 09-24-2018 Component Person a 11 Standard Cocr Femoral Cruciate Retain - [id number] Start: 04-12-2020 Component 38mm A ll Poly Patellar Psn - [id number] Start: 04-12-2020 Nexgen All Poly Patella 38mm 9.5mm Thick - [id number] Start: 09-11-2011 Baseplate Person a 5d G Tivanium Tibial Cemented Stem Knee Right - [id number] Start: 04-12-2020 Extension Person a 14mm Taper 30+ Mm Stem Knee Tibia - [id number] Start: 04-12-2020 Plug Nexgen Complete Knee Taper Stem - [id number] Start: 09-11-2011 Goals Date Patient Goal Desired Activity /State Personal health goal Comment on above: Formatting of this n ote might be different from the original. Evaluation of progress towards goal: Plan to return home with spouse. Mental Status Date Assessment Result Facility 11-20-2021 Cognitive function Level of Cons ciousness Alert;Appropriate [facility] Work Phone: Clinical Notes 02-28-2012 to 07-16-2024 Gita Watts, - 07/16/2024 11:20 AM ESTPatient InstructionsTelephone Encounter - Elsie Seals - 07/03/2024 10:05 AM EDTTelephone Encounter - Elsie Seals - 07/03/2024 10:05 AM EDT Note Date & Type Note Facility 07-16-2024 History of Present illness Narrative Subjective Tom Khan is a 68 y.o. male Chief Complaint Follow-up 68-year-old gentleman returns for 6 months following non-ST elevation PA in October with primary revascularization of the [...] total., Disp: 100 tablet, Rfl: 11 omega 4-vih-psx-fish oil (Fish OiL) 1,000 mg (120 mg-180 [...] discussion and plan. documented in this encounter [facility] Work Phone: 07-16-2024 Instructions Nataly Urias [...] instructions on exercise. documented in this encounter [facility] Work Phone: 07-03-2024 Miscellaneous Notes Tried to call pt to schedule referral for abd pain, rang 3 times then call was disconnected. Will try again at a later date. documented in this encounter [facility] 07-03-2024 Telephone encounter Note Tried to call pt to schedule referral for abd pain, rang 3 times then call was disconnected. Will try again at a later date. [facility] 06-26-2024 History of Present illness Narrative REASON [...] mg weekly Blood glucose summary: Patient uses Dexcom G7 Insulin pump/ Continuous glucose monitoring sensor data is available to review under Media tab yes 30 day average BG is 175 Time in range is 59 % Hypoglycemia 0 % Pattern/causes of high BG: post prandial Pattern/causes of low BG: rare Hypoglycemia: Awareness: GOOD Frequency: rare Glucagon available: no Past Medical History: Diagnosis Date Angina pectoris ([facility]) Anxiety Arthritis osteoarthritis Back pain Cardiomegaly Cataract CHF (congestive heart failure) ([facility]) Coronary artery disease Status post CABG COVID-19 Dental disease crowns Depression Deviated septum Diabetes mellitus type 2, controlled ([facility]) Difficult intravenous access OSEI (dyspnea on exertion) Esophageal stricture Fractures Gallstone GERD (gastroesophageal reflux disease) H/O esophagogastroduodenoscopy dilatation Heart attack ([facility]) 10/06/2023 4 stints Hiatal hernia Hyperlipidemia Hypertension Hyponatremia Incontinence of bowel Incontinence of urine 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 Mild cognitive impairment Obesity Obsessive compulsive disorder Peripheral neuropathy Pneumonia PONV (postoperative nausea and vomiting) Pulmonary vascular congestion Salmonella Sleep apnea cpap Urinary retention Visual impairment glasses retinal detatchment Vitamin D deficiency Vitreous hemorrhage ([facility]) Vocal cord granuloma Past Surgical History: Procedure [...] SL tablet, Q5M, Disp: , Rfl: omega 4-zoa-zre-fish oil (Fish OiL) 300-1,000 mg capsule, Take [...] gangrene, with long-term current use of insulin ([facility]) - POCT Hemoglobin A1c Continue current dose [...] injury. Return to clinic: 3 months with SOFTWARE CONSULTANT, and 6 months with me documented in this encounter [facility] 06-10-2024 History of Present illness Narrative Subjective [...] Past Medical History: Diagnosis Date Angina pectoris ([facility]) Anxiety Arthritis osteoarthritis Back pain Cardiomegaly Cataract CHF (congestive heart failure) ([facility]) Coronary artery disease Status post CABG COVID-19 Dental disease crowns Depression Deviated septum Diabetes mellitus type 2, controlled ([facility]) Difficult intravenous access OSEI (dyspnea on exertion) Esophageal stricture Fractures Gallstone GERD (gastroesophageal reflux disease) H/O esophagogastroduodenoscopy dilatation Heart attack ([facility]) 10/06/2023 4 stints Hiatal hernia Hyperlipidemia Hypertension Hyponatremia Incontinence of bowel Incontinence of urine 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 Mild cognitive impairment Obesity Obsessive compulsive disorder Peripheral neuropathy Pneumonia PONV (postoperative nausea and vomiting) Pulmonary vascular congestion Salmonella Sleep apnea cpap Urinary retention Visual impairment glasses retinal detatchment Vitamin D deficiency Vitreous hemorrhage ([facility]) Vocal cord granuloma Past Surgical History Past [...] 60 min Stress: Stress Concern Present (04/17/2023) [employer] - Occupational Stress Questionnaire Feeling of Stress : Rather much Social Connections: Socially Integrated (04/17/2023) Social Connection and Isolation Panel [NHANES] Frequency of Communication with Friends and Family: More than three times a week Frequency of Social Gatherings with Friends and Family: More than three times a week Attends Restorationist Services: More than 4 times per year [...] (NITROSTAT) 0.4 MG SL tablet Q5M omega 8-ens-skr-fish oil (Fish OiL) 300-1,000 mg capsule Take [...] neck and low back pain Referred to [facility] ER for eval There are no discontinued medications. There are no Patient Instructions on file for this visit. TERRY Monteiro 06/10/24 1240 documented in this encounter [facility] 06-05-2024 Miscellaneous Notes I called the patient's spouse to see if I should reschedule him for his surgery. She states that Dr. Watts from [facility] informed her that he cannot have surgery due to Cardiology issues for at lease a year or more. documented in this encounter [facility] 06-05-2024 Telephone encounter Note I called the patient's spouse to see if I should reschedule him for his surgery. She states that Dr. Watts from [facility] informed her that he cannot have surgery due to Cardiology issues for at lease a year or more. [facility] 01-22-2024 History of Present illness Narrative Subjective Tom Khan is a 68 y.o. male Chief Complaint Follow-up 68-year-old gentleman returns for follow-up for the first time to see me following high risk non-ST elevation PA and October 06 of this year with [...] total., Disp: 100 tablet, Rfl: 11 omega 8-vnr-mbt-fish oil (Fish OiL) 1,000 mg (120 mg-180 [...] 5. Depression, unspecified depression type 6. Old PA (myocardial infarction) 7. History of PTCA 8. Anxiety 9. Mixed hyperlipidemia Scribe Attestation By signing my name below, IMona LPN, Scribe attest that this documentation has been prepared [...] discussion and plan. documented in this encounter [facility] Work Phone: 01-22-2024 Instructions Mona Huffman [...] Increase physical activity. documented in this encounter [facility] Work Phone: 12-05-2023 Miscellaneous Notes 12/05/23 Tom Khan 1955 Has Contacted our office requesting Nutrition Education. If you would like to refer Tom, please sign pended referral if agreeable for Education. Thank you! [facility] [phone] [facility]-05[facility]2023 Telephone encounter Note 12/05/23 Tom Khan 1955 Has Contacted our office requesting Nutrition Education. If you would like to refer Tom, please sign pended referral if agreeable for Education. Thank you! [facility] [phone] [facility] 11-28-2023 Miscellaneous Notes Patient is concerned with a low that he had around 1am. Dexcom download attached in family law mediator. Please advise. Toujeo 66u HS Humalog scale [...] to call us. documented in this encounter [facility] 11-28-2023 Telephone encounter Note Patient is concerned with a low that he had around 1am. Dexcom download attached in family law mediator. Please advise. Toujeo 66u HS Humalog scale to: 0-100: 6u, 101-150= 8 u, 151-200= 11 u, 201-250= 14, 250-300= 17 etc. [facility] 11-28-2023 Telephone encounter Note I see a 1:00 a.m. low about 1 week back. Looks like he has not had anymore lows since. If this is correct, no need to change any doses. If he is needing to eat a bedtime snack to avoid overnight lows, then drop Toujeo to 60 units HS and avoid bedtime snacking. [facility] 11-28-2023 Telephone encounter Note Patient states he only had the one low and no bedtime snacking is done so patient informed of no changes at this time. I told him of lows continue to call us. [facility] 11-27-2023 Miscellaneous Notes Pt would like order for aquatic therapy. Please send to [facility] in [place]. Please place order. Need clearance from cardiology for water therapy Notified pt. documented in this encounter [facility] 11-27-2023 Telephone encounter Note Pt would like order for aquatic therapy. Please send to [facility] in [place]. Please place order. [facility] 11-27-2023 Telephone encounter Note Need clearance from cardiology for water therapy [facility] Work Phone: 11-27-2023 Telephone encounter Note Notified pt. [facility] 11-26-2023 History of Present illness Narrative Images from the original note were not included. [address] [facility] [id number] Patient: Tom Khan Date of : 1955 [...] a candidate for PDE5 as he had PA in 10/2023 per and carries nitroglycerin (never [...] Past Medical History: Diagnosis Date Angina pectoris ([facility]) Anxiety Arthritis osteoarthritis Back pain Cardiomegaly Cataract CHF (congestive heart failure) ([facility]) Coronary artery disease Status post CABG COVID-19 Dental disease crowns Depression Deviated septum Diabetes mellitus type 2, controlled ([facility]) Difficult intravenous access OSEI (dyspnea on exertion) Esophageal stricture Fractures Gallstone GERD (gastroesophageal reflux disease) H/O esophagogastroduodenoscopy dilatation Heart attack ([facility]) 10/06/2023 4 stints Hiatal hernia Hyperlipidemia Hypertension Hyponatremia Incontinence of bowel Incontinence of urine 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 He understands he has not a candidate for PDE5. We briefly discussed potential for vacuum erection device as well as possible penile injection therapy. He will consider his options. Would like him to follow-up short-term sometime in the next 2-3 months in the [place] office location, establish with 1 of the [...] Vieyra 11/26/23 1110 documented in this encounter [facility] 11-22-2023 Miscellaneous Notes LM that a change [...] the new scale be sent in a [employer] message. Message sent. documented in this encounter [facility] 11-22-2023 Telephone encounter Note LM that [...] has any upcoming appointments with our office. [facility] 11-22-2023 Telephone encounter Note Decrease Humalog scale to: 0-100: 6u, 101-150= 8 u, 151-200= 11 u, 201-250= 14, 250-300= 17 etc. Dexcom download in 1 week [facility] Work Phone: 11-22-2023 Telephone encounter Note Spoke with , she was unable to write down the new scale at this time and asked that the new scale be sent in a [employer] message. Message sent. [facility] 11-22-2023 Miscellaneous Notes Patient sent a [employer] message asking about his dexa scan that [...] ER if worse. documented in this encounter [facility] 11-22-2023 Telephone encounter Note Patient sent a [employer] message asking about his dexa scan that he is supposed to get done. Can you please place this order? [facility] 11-22-2023 Telephone encounter Note HIDA scan was recommended, not DEXA HIDA scan order placed [facility] 11-22-2023 Telephone encounter Note Patient notified, states he will call back for central scheduling number. [facility] 11-22-2023 Telephone encounter Note Pt called back, was given scheduling number. He states the pain in abd getting worse. Advised to get 1st avail. Also, patient wanted to let you know his blood sugars are all over the place and back is bothering him. [facility] 11-22-2023 Telephone encounter Note Likely will have to wait a couple weeks for HIDA scan, if he is having increased back and abd pain, he should be evaluated in ED [facility] 11-22-2023 Telephone encounter Note Called patient, he has HIDA scan 12/05. Pt was advised to ER if worse. [facility] 11-19-2023 Miscellaneous Notes Patient states that even when he eats well high blood sugars are elevated afterwards. Dexcom download is attached in family law mediator. Please advise. Toujeo 66u HS Humalog sliding scale <100 none 101-150: 9u 151-200: 12u 201-250: 15u etc Increase Humalog scale to 80-100: 8u, 101-150= 10 u, 151-200= 13 u, 201-250= 16, 250-300= 19 u etc Called. NA.DEVANTE [facility] 11-19-2023 Telephone encounter Note Patient states that even when he eats well high blood sugars are elevated afterwards. Dexcom download is attached in family law mediator. Please advise. Toujeo 66u HS Humalog sliding scale <100 none 101-150: 9u 151-200: 12u 201-250: 15u etc [facility] 11-19-2023 Telephone encounter Note Increase Humalog scale to 80-100: 8u, 101-150= 10 u, 151-200= 13 u, 201-250= 16, 250-300= 19 u etc [facility] Work Phone: 11-19-2023 Telephone encounter Note Called. NA.DEVANTE [facility] 11-19-2023 Miscellaneous Notes Error-Pt called for results, gave to Prisca documented in this encounter [facility] 11-19-2023 Telephone encounter Note Error-Pt called for results, gave to Prisca [facility] 11-15-2023 History of Present illness Narrative [...] and CAD s/p STEMI w/ stents at [facility] in October. LVEF 55%. Has f/u with Dr. Watts January 21. Sees Dr. Farfan (psychiatry [facility]) Recent back surgery - Dr. [...] Past Medical History: Diagnosis Date Angina pectoris ([facility]) Anxiety Arthritis osteoarthritis Back pain Cardiomegaly Cataract CHF (congestive heart failure) ([facility]) Coronary artery disease Status post CABG COVID-19 Dental disease crowns Depression Deviated septum Diabetes mellitus type 2, controlled ([facility]) Difficult intravenous access OSEI (dyspnea on exertion) Esophageal stricture Fractures Gallstone GERD (gastroesophageal reflux disease) H/O esophagogastroduodenoscopy dilatation Heart attack ([facility]) 10/06/2023 4 stints Hiatal hernia Hyperlipidemia Hypertension Hyponatremia Incontinence of bowel Incontinence of urine 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 Mild cognitive impairment Obesity Obsessive compulsive disorder Peripheral neuropathy Pneumonia PONV (postoperative nausea and vomiting) Pulmonary vascular congestion Salmonella Sleep apnea cpap Urinary retention Visual impairment glasses retinal detatchment Vitamin D deficiency Vitreous hemorrhage ([facility]) Vocal cord granuloma Past Surgical History Past [...] 60 min Stress: Stress Concern Present (04/17/2023) [employer] - Occupational Stress Questionnaire Feeling of Stress : Rather much Social Connections: Socially Integrated (04/17/2023) Social Connection and Isolation Panel [NHANES] Frequency of Communication with Friends and Family: More than three times a week Frequency of Social Gatherings with Friends and Family: More than three times a week Attends Restorationist Services: More than 4 times per year [...] (NITROSTAT) 0.4 MG SL tablet Q5M omega 4-tgo-uhp-fish oil (Fish OiL) 300-1,000 mg capsule Take [...] normal. Left Ear: Hearing normal. Mouth/Throat: Lips: [facility]. Pharynx: Oropharynx is clear. Eyes: General: No [...] gangrene, with long-term current use of insulin ([facility]) 2. OSEI (dyspnea on exertion) - CBC [...] elevation myocardial infarction (STEMI) of inferior wall ([facility]) 11. Moderate episode of recurrent major depressive disorder ([facility]) Return in about 3 weeks (around 12/06/2023) for Recheck. Medications Discontinued During This Encounter Medication Reason gabapentin (NEURONTIN) 300 mg capsule Therapy completed There are no Patient Instructions on file for this visit. TERRY Monteiro 12/02/23 1507 documented in this encounter [facility] 11-01-2023 History of Present illness Narrative Images from the original note were not included. [facility] [address] [place] [address], [address] [place] [address] * CHART NOTE ? 11/06/2023 Patient: Tom Khan 1955 [id number] Physician: Bobbi Steen MD CHIEF COMPLAINT Post-op [...] his core and legs. Denies loss of director behavioral health strength, saddle anesthesia, urinary or bowel dysfunction, [...] SL tablet, Q5M, Disp: , Rfl: omega 6-qjv-yzv-fish oil (Fish OiL) 300-1,000 mg capsule, Take [...] Right achilles: 2+ Left achilles: 2+ Right director behavioral health: 2+ Left director behavioral health: 2+ Right Moon: absent Left Moon: absent [...] record of the patient encounter. Inadvertent computerized special needs teacher errors related to syntax, spelling, homophones, and/or inaudibility may be present. Scribe Statement: Scribed for and in the presence of Bobbi Steen MD by Chaz Clark. Provider Statement: I, Bobbi Steen MD personally performed the services described in the documentation, as scribed by Chaz Clark in my presence, and it is both accurate and complete documented in this encounter [facility] 11-01-2023 Instructions PRASHANT Rockwell - 11/01/2023 1:30 PM EST Patient was seen by Dr. Steen. Patient was given an order for physical and aquatic therapy. Neurontin 300mg. 1 tablet every 8 hours. #90 30 day supply, 3 refills. Lumbar spine Flex/Ext x ray. A referral to urology. Patient will follow up after Aquatic and physical therapy. JA documented in this encounter [facility] 10-22-2023 Evaluation + Plan note Associated Problem(s): Obesity (BMI 30-39.9) Reviewed the merits of healthy lifestyle choices on overall cardiovascular health. [facility] Work Phone: 10-22-2023 Evaluation + Plan note Associated Problem(s): Diabetes mellitus (CMS/HCC) On statin/ARB Reports most recent hemoglobin A1c 8.0 [facility] Work Phone: 10-22-2023 Miscellaneous Notes Associated Problem(s): Obesity (BMI 30-39.9) Reviewed the merits of healthy lifestyle choices on overall cardiovascular health. Associated Problem(s): Diabetes mellitus (CMS/HCC) On statin/ARB [...] SVG-circumflex/? OM occluded documented in this encounter [facility] Work Phone: 10-22-2023 Evaluation + Plan note Associated Problem(s): Ischemic cardiomyopathy October 2023 TTE LVEF 55% Inferior hypokinesis Left atrium mild MR trace [facility] Work Phone: 10-22-2023 Evaluation + Plan note Associated Problem(s): Hypertension Slightly elevated in office. Report home health care nurse - systolic blood pressure 149 [facility] Work Phone: 10-22-2023 Evaluation + Plan note Associated Problem(s): Hyperlipidemia Tolerating high intensity statin [facility] Work Phone: 10-22-2023 Evaluation + Plan note Associated Problem(s): CAD, multiple vessel 2008 CABG x5 Oct 06, 2023: In-house inferior STEMI while in inpatient rehab following L4-L5 laminectomy. Managed emergently by Dr. Watts. Proximal, mid/distal and distal PDA of RCA PCI/RHINA x 3 Ramus PCI/RHINA Y graft to PITTS-diagonal - LAD: patent GRISELDA-OM patent SVG-RCA occluded SVG-circumflex/? OM occluded [facility] Work Phone: 10-17-2023 History of Present illness Narrative Chief Complaint Seem to be okay Reason for Visit Patient presents to the office today for outpatient follow-up for hospital follow-up. Patient was recently hospitalized at [facility]. The patient was seen in Cardiology consult with subsequent cardiovascular management by [facility]. Hospitalization records have been reviewed. Reason for Cardiology Consultation: Inhouse inferior STEMI Consulting Outside Sales: Dr. Watts Cardiovascular testing: Cardiac cath subsequent coronary intervention, echocardiogram Changes to cardiovascular medical regimen at time of discharge: Brilinta, Lipitor, Cozaar, Aldactone, aspirin. Discharge disposition: Home Presents today ambulatory with steady gait. Accompanied by spouse History of Present Illness Patient is a pleasant 68-year-old gentleman who presents to the office today without voiced cardiovascular complaints. He was in inpatient rehab at [facility] where he noted a sudden onset of [...] for up to 3 doses total. omega 8-dvt-ldc-fish oil (Fish OiL) 1,000 mg (120 mg-180 mg) capsule 1 capsule, oral, Daily spironolactone (ALDACTONE) 25 mg, oral, Daily tamsulosin (FLOMAX) 0.4 mg, oral, Daily ticagrelor (BRILINTA) 90 mg, oral, 2 times daily Assessment: CAD, multiple vessel 2008 CABG x5 Oct [...] Dr. Watts 3 months Chip Gavin MSN, PROMOTIONAL REPRESENTATIVE-ASSEMBLER GOLD FRAME, PMHNP-[facility] Please excuse any errors in grammar or translation related to this dictation. Voice recognition software was utilized to prepare this document. documented in this encounter [facility] Work Phone: 10-17-2023 Instructions TERRY Trinh [...] Watts 3 months documented in this encounter [facility] Work Phone: 10-15-2023 History of Present illness Narrative Subjective Patient ID: Tom Khan is a 68 y.o. male. He was discharged from [facility] this Sunday after he had his PA, prior to that he was in rehab [...] Oct He will see Dr Guevara the weaver apprentice on the Oct 17 Blood sugars have been running 150 - 200 - he has been off of ozempic for 6 months and it has been awhile since they have seen endocrine He has an appt with [facility] tomorrow He had the initial assessment for PT intake at home and will likely being home PT for his back and OP cardiac PT as well He has been gradually increasing his home activity as discussed with his neurosurgeon and weaver apprentice His level of pain is subsiding and [...] nursing note reviewed. Exam conducted with a phy therapist present (). Constitutional: General: He is not [...] laminectomy Chronic diastolic CHF (congestive heart failure) ([facility]) - carvediloL (COREG) 12.5 mg tablet; Take 1 tablet (12.5 mg total) by mouth in the morning and 1 tablet (12.5 mg total) before bedtime. ST elevation myocardial infarction (STEMI) of inferior wall ([facility]) Type 2 diabetes mellitus with diabetic peripheral angiopathy without gangrene, with long-term current use of insulin ([facility]) Primary hypertension History of urinary retention - [...] set up with the exception of his per diem clerk, this he will need to set up [...] SANDI Antoine 10/15/231818 documented in this encounter [facility] 10-09-2023 Hospital Discharge instructions Ambulatory OrdersInitiate Home [...] doctor or pharmacist, without first calling the weaver apprentice who implanted the stent. If you require [...] weight lifting, stair steppers, etc. until the weaver apprentice approves these activities. Check with the weaver apprentice on your first follow-up visit. CALL YOUR PHYSICIAN at [phone]: -If bleeding should occur from the catheter insertion site- apply pressure to the site then immediately call us. -Report any fever, redness, drainage, increased swelling, or firmness at the catheter insertion site. Some bruising or slight swelling may be present at the time of discharge. -Should arm or leg become cold, numb, white, or blue, contact the weaver apprentice immediately. -IF you should experience episodes of [...] if you have recurrent angina. The attending weaver apprentice or [facility] nurse clinician should provide you with specific instructions regarding activity, diet, medications, and further follow up for you. Follow the medication instructions provided on your discharge. If the dosages and instructions on this sheet differ from the dosage and instructions on the bottle, follow the instructions on the bottle. [facility] is not responsible for incorrect prescription [...] Provide education on high risk fall precautions [facility] Work Phone: 09-24-2023 Miscellaneous Notes ----- Message from Gilles Dominguez PA-C sent at 09/22/2023 10:47 AM EST ----- Fu 1-2 months sp hospitalization Still admitted.PRASHANT Gamboa Still admitted.PRASHANT Gamboa PT STILL ADMITTED documented in this encounter [facility] 09-24-2023 Telephone encounter Note ----- Message from Gilles Dominguez PA-C sent at 09/22/2023 10:47 AM EST ----- Fu 1-2 months sp hospitalization [facility] 09-24-2023 Telephone encounter Note Still admitted.PRASHANT Gamboa [facility] 09-24-2023 Telephone encounter Note Still admitted.PRASHANT Gamboa [facility] 09-24-2023 Telephone encounter Note PT STILL ADMITTED [facility] 09-19-2023 History of Present illness Narrative [facility] [address] [place] [address] Patient: Tom Khan Sex: male : 1955 Age: 67 y.o. PCP: Tom Paniagua Jr, DO 09/19/2023 Tom Tobias Alexiafina is here for a(n) initial consultation. Chief Complaint Patient presents with Back Pain HPI: Physical therapy August 2023 at [facility] finished in September 2023, now currently attends [...] artery disease Status post CABG Diabetes mellitus ([facility]) Gallstone Hyperlipidemia Hypertension Vitreous hemorrhage ([facility]) Past Surgical History: Procedure Laterality Date COLONOSCOPY [...] 60 min Stress: Stress Concern Present (04/17/2023) [employer] [place] [employer] - Occupational Stress Questionnaire Feeling of Stress : Rather much Social Connections: Socially Integrated (04/17/2023) Social Connection and Isolation Panel [NHANES] Frequency of Communication with Friends and Family: More than three times a week Frequency of Social Gatherings with Friends and Family: More than three times a week Attends Restorationist Services: More than 4 times per year [...] PA-C by Marley Sprague CNA. Provider Statement: YARI Brumfield PA-C, personally performed the services described in the documentation, as scribed by Marley Sprague CNA in my presence, and it is both accurate and complete. Marley Sprague CNA 09/19/23 1404 Yari Peter PA-C 09/19/23 1434 documented in this encounter [facility] 09-13-2023 Miscellaneous Notes Pt called she [...] and cost to much Please send to [facility]. Will let them know orders will be there. documented in this encounter [facility] 09-13-2023 Telephone encounter Note Pt called she wasn't able to come to dr dhaliwal, wanted to know if pt could get a lasix bc his legs are getting puffy again, pt stated you did look at them , also concerned about entresto they go back to the cardiogist the pt hasn't taken Rx 3-4 weeks insurance chaged and cost to much [facility] 09-13-2023 Telephone encounter Note Please send to [facility]. Will let them know orders will be there. [facility] 01-04-2023 History of Present illness Narrative Attemped to call with chest xray results. No answer. Unable to leave a VM Images from the original note were not included. Patient Name: [facility] Location: Tom Khan [address] [facility] [address] Date Of : Date Of Visit: 1955 01/04/2023 MRN# Provider: [id number] Etta Oakes CNP Chief Complaint Patient presents [...] No major cough. 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 requests [...] was concerned because they were walking around [place] today and he states that he was [...] canal and external ear normal. Mouth/Throat: Lips: [facility]. Mouth: Mucous membranes are moist. No lacerations [...] for this visit. documented in this encounter [facility] 07-06-2022 Evaluation note Encounter Date Diagnosis Assessment [...] Depression, major, recurrent, moderate (ICD-10 - F33.1) [facility] Other 11-19-2021 NotePROCEDURE: CT CSPINE WO CON [...] Electronically authenticated by: LULA RODRIGUEZ Date: 2021-07-22 09:36[facility]10-22-2021 NoteHNO ID: [id number] Author: Rudolph Ambrocio [facility]-FIRE RANGER Service: ? Author Type: Speech Language Pathologist Type: Progress Notes Filed: 06/24/2021 8:45 AM Note Text: 06/24/2021 [facility] SPEECH DISCONTINUANCE OF [...] therapy or scheduled additional follow-up appointments. Rudolph Ambrocio [facility]-2021 NoteHNO ID: [id number] Author: Rudolph Ambrocio FIRE RANGER Service: ? Author Type: Speech Language Pathologist Type: Progress Notes Filed: 03/23/2021 9:35 AM Note Text: Episode Visit Count: 3 Therapist That Will Oversee The Plan Of Care: Dorothy Benoit Start of Care Date: 02/15/21 Onset Date: 01/24/21 Plan of Care Certification Date: 02/15/21 Next Certification Due Date: 05/16/21 Patient Identified by Name and Date of : Yes [facility] SPEECH THERAPY PROGRESS [...] FCM Problem Solving Level: 5 Assessment per [facility] Functional Communication Measure and treatment recommendations: Memory: LEVEL 5: The individual consistently requires minimal cues to recall or use external memory aids for complex and novel information. The individual consistently requires cues to plan and follow through on complex future events (e.g., menu planning and meal preparation, planning a constitution party, etc.). Problem Solving: LEVEL 5: The individual [...] Planned Interventions, Frequency, and Duration: Cognitive-Linguistic Training FIRE RANGER Recommendations: Outpatient Speech Therapy Results and Recommendations [...] Provided moderate verbal cues. TREATMENT: Speech/Language Therapy (30804): Skilled Intervention: Educated and instructed patient on compensatory strategies for memory and working memory Educated and instructed patient on memory recall strategies such as active repetition, association and grouping. Provided verbal cues in auditory / verbal memory tasks. Provided and instructed patient per home exercise program. Current Home Program: memory using association and 4 word sentences Billing: Speech Treatment (74045) Total time / Length of visit: 45 minutes Rudolph Ambrocio, SLP[facility]06-29-2021 NoteHNO ID: [id number] Author: Tima Soto MD Service: ? Author Type: Physician Type: Progress Notes Filed: 03/01/2021 4:35 PM Note Text: Ortho Knee Follow Up Note Narrative Referring Provider: Tima Soto [address] [facility] [address] PCP: Tom Pnaiagua, DO IMPRESSION/PLAN: Sed rate/crp 65 year old [...] my interpretation. I wrote the Assessment and Plan.[facility]06-29-2021 NoteHNO ID: [id number] Author: RT Cesar(R) Service: ? Author Type: Foreign Exchange Student Coordinator Type: Progress Notes Filed: 03/01/2021 12:52 PM [...] BY: RT Cesar(R) March 01, 2021 12:50 [facility]06-25-2021 NoteHNO ID: [id number] Author: Rudolph Ambrocio, MICK Service: ? Author Type: Speech Language Pathologist Type: Progress Notes Filed: 02/25/2021 12:06 PM Note Text: Episode Visit Count: 2 Therapist That Will Oversee The Plan Of Care: Dorothy Benoit Start of Care Date: 02/15/21 Onset Date: 01/24/21 Plan of Care Certification Date: 02/15/21 Next Certification Due Date: 05/16/21 Patient Identified by Name and Date of : Yes [facility] SPEECH THERAPY TREATMENT [...] after 5 minutes (100%) TREATMENT: Speech/Language Therapy (94163): Skilled Intervention: Educated and instructed patient on [...] order, time problem solving Billing: Speech Treatment ([id number]) Total time / Length of visit: 45 minutes MICK FlanaganOhio State [facility]ing Hospital06-15-2021 NoteHNO ID: [id number] Author: MICK Shelton Service: ? Author Type: Speech Language Pathologist Type: Progress Notes Filed: 02/15/2021 1:57 PM Note Text: Episode Visit Count: 1 Therapist That Will Oversee The Plan Of Care: Dorothy Benoit Start of Care Date: 02/15/21 Onset Date: 01/24/21 Plan of Care Certification Date: 02/15/21 Next Certification Due Date: 05/16/21 Patient Identified by Name and Date of : Yes [facility] COGNITIVE LINGUISTIC EVALUATION PLAN OF CARE: Impression: Functional communication without limitations in: Cognition Communication deficits identified: Cognitive deficits RECOMMENDATION: FIRE RANGER Recommendations: Outpatient Speech Therapy Results and Recommendations [...] menu planning and meal preparation, planning a constitution party, etc.). 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 Prior Functional Level: Within Functional Limits [...] Eval Sound Production with Language Expression and Gas Utility Worker ([id number]) Speech/Language The (more content not included)...[facility] 05-20-2020 History of Present illness Narrative* Babs OrnelasCannonballLópez - 05/20/2020 12:45 PM EDT Radiology Service [...] 20, 2020 1:07 PM [facility] general Narrative - Reported* Type Description Date Medical History 02/28/2012 Blood work CBC, CMP, Liver profile Medical History 03/09/12 Blood work Lipid, CMP, CBC, T4, TSH, HGA1C (6.2), PSA (1.07) Medical History CT Paranasal Sinses without cont rast 03-12-12 [facility] Medical History CT Abdomen and Pelvis without co ntrast 03-12-12 [facility] Medical History hypertension Medical History chronic depression Medical History diabetes mallitus Medical History NIDIA Surgical History CABG 2007 Surgical History ENT surgery due to sleep apnea. 2008 Surgical History Left knee replacement 09/2011 Surgical History dental implants Surgical History knee replacement right Hospitalization History SEE ABOVE [facility] Other Evaluation noteNo assessment information available [facility] Work Phone: Evaluation noteNo InformationNort [employer] Other Evaluation note* Diagnosis Cough, unspecified type- Primary [facility] Diagnosis Type 2 diabetes mellitus with diabetic peripheral angiopathy without gangrene, with long-term current use of insulin ([facility]) [facility] Diagnosis Spinal stenosis of lumbar region without neurogenic claudication [facility]* Diagnosis Onset Date Resolution Status Cauda equina compression acu te Impaired mobility and activities of daily living acute Post-operative pain acute S/P lumbar laminectomy acute Severe major depression acut e Spinal stenosis at L4-L5 level acute Type II diabetes mellitus ac [place] CAD (coronary artery disease) chronic Generalized anxiety disorder chronic Hyperlipidemia chronic Hypertension chronic Major psychotic depression, recurrent chronic [facility] Work Phone: Evaluation note* Diagnosis Onset Date Resolution Status Cauda equina compression acu te Impaired mobility and activities of daily living acute Post-operative pain acute S/P lumbar laminectomy acute Severe major depression acut e Spinal stenosis at L4-L5 level acute Type II diabetes mellitus [place] CAD (coronary artery disease) chronic Generalized anxiety disorder chronic Hyperlipidemia chronic Hypertension chronic Major psychotic depression, recurrent chronic History of coronary artery bypass graft x 3 acute Spinal stenosis at L4-L5 level acute ST elevation myocardial infa rction (STEMI) of inferior wall acute Type II diabetes mellitus [place] CAD (coronary artery disease) chronic Hyperlipidemia chronic Hypertension chronic [facility] Work Phone: Evaluation note* Diagnosis Status post lumbar laminectomy- Primary Chronic diastolic CHF (congestive heart failure) ([facility]) ST elevation myocardial infarction (STEMI) of inferior wall ([facility]) Acute myocardial infarction of other inferior wall, episode of care unspecified Type 2 diabetes mellitus with diabetic peripheral angiopathy without gangrene, with long-term current use of insulin ([facility]) Primary hypertension Unspecified essential hypertension History of urinary retention Other constipation [facility]* Diagnosis CAD, multiple vessel- Primary Primary hypertension Unspecified essential hypertension Mixed hyperlipidemia Ischemic cardiomyopathy Other specified forms of chronic ischemic heart disease Type 2 diabetes mellitus without complication, with long-term current use of insulin (CMS/HCC) Obesity (BMI 30-39.9) Major psychotic depression, recurrent (CMS/HCC) Moderate episode of recurrent major depressive disorder (CMS/HCC) documented in this encounter [facility] Work Phone: Evaluation note* Diagnosis Numbness in both legs- Primary Disturbance of skin sensation Lumbar pain Lumbago Lumbar pain Lumbago [facility]* Diagnosis Biliary colic- Primary Calculus of gallbladder without mention of cholecystitis or obstruction [facility]* Diagnosis Numbness in both legs Disturbance of skin sensation History of urinary retention documented [facility]* Diagnosis Type 2 diabetes mellitus with diabetic peripheral angiopathy without gangrene, with long-term current use of insulin ([facility])- Primary OSEI (dyspnea on exertion) Other dyspnea and respiratory abnormality Bilateral lower extremity edema RUQ abdominal pain Abdominal pain, right upper quadrant Tendinopathy of left rotator cuff Mixed hyperlipidemia Screening PSA (prostate specific antigen) Special screening for malignant neoplasm of prostate Primary hypertension Unspecified essential hypertension CAD, multiple vessel ST elevation myocardial infarction (STEMI) of inferior wall ([facility]) Acute myocardial infarction of other inferior wall, episode of care unspecified Moderate episode of recurrent major depressive disorder ([facility]) Bilateral lower extremity edema RUQ abdominal pain Abdominal pain, right upper quadrant OSEI (dyspnea on exertion) Other dyspnea and respiratory abnormality documented [facility]* Diagnosis Type 2 diabetes mellitus with diabetic peripheral angiopathy without gangrene, with long-term current use of insulin ([facility])- Primary documented in [facility]* Diagnosis Type 2 diabetes mellitus with diabetic peripheral angiopathy without gangrene, with long-term current use of insulin ([facility])- Primary documented in [facility] encounter [facility]* Diagnosis CAD, multiple vessel Obesity (BMI 30-39.9) Primary hypertension Unspecified essential hypertension Type 2 diabetes mellitus without complication, with long-term current use of insulin ([facility]) Depression, unspecified depression type Old PA (myocardial infarction) Old myocardial infarction History of PTCA Postsurgical percutaneous transluminal coronary angioplasty status Anxiety Anxiety state, unspecified Mixed hyperlipidemia documented in this encounter [facility] Work Phone: Evaluation note* Diagnosis Suspected cauda equina syndrome- Primary Neck pain Cervicalgia Bilateral low back pain with sciatica, sciatica laterality unspecified, unspecified chronicity Incontinence of feces, unspecified fecal incontinence type B12 deficiency documented [facility]* Diagnosis Pre-op exam- Primary Preoperative examination, unspecified Primary osteoarthritis of right knee Primary localized osteoarthrosis, lower leg Essential hypertension Unspecified essential hypertension S/P CABG (coronary artery bypass graft) Postsurgical aortocoronary bypass status Unspecified sleep apnea Prediabetes Other abnormal glucose Atherosclerosis of [place] coronary artery of [place] heart without angina pectoris Vocal cord granuloma Other diseases of vocal cords Hyperlipidemia, unspecified hyperlipidemia type Esophageal stricture Stricture and stenosis of esophagus Depression, unspecified depression type Nuclear senile cataract, unspecified laterality [facility] Diagnosis Pre-op exam- Primary Preoperative examination, unspecified Primary osteoarthritis of right knee Primary localized osteoarthrosis, lower leg Essential hypertension Unspecified essential hypertension S/P CABG (coronary artery bypass graft) Postsurgical aortocoronary bypass status Unspecified sleep apnea Prediabetes Other abnormal glucose Atherosclerosis of [place] coronary artery of [place] heart without angina pectoris Vocal cord granuloma Other diseases of vocal cords Hyperlipidemia, unspecified hyperlipidemia type Esophageal stricture Stricture and stenosis of esophagus Depression, unspecified depression type Primary osteoarthritis of right knee Primary localized osteoarthrosis, lower leg [facility] Diagnosis Type 2 diabetes mellitus with diabetic peripheral angiopathy without gangrene, with long-term current use of insulin ([facility])- Primary documented in [facility] Diagnosis CAD, multiple vessel- Primary [...] Anxiety state, unspecified documented in this encounter [facility] Work Phone: History of Present illness [...] months or earlier if the need arise [facility] DO Work Phone: Hospital Discharge instructions Additional Instructions Call [facility] tomorrow for follow-up. Also follow-up with a primary care provider or return for emergent concerns. No changes are made any home medications. Prescriptions are provided.[facility] Work Phone: InstructionsNot on filedocumented in this encounter [facility] System[facility]ructionsNot on filedocumented in [facility] encounter [facility] [place] SystemInstructionsNot on filedocumented in this encounter [facility] [...] Procedures Follow Up In Cardiology Chip Gavin APRN-CNP [address] [facility] [address], [address] [address] Gita Watts, [address] [facility] [address], [place] [phone] Referral ID Status Reason Start Date Expiration Date V isits Requested Visits Authorized [id number] Authorized 10/17/2023 10/16/2024 1 1 [facility] Work Phone: Reason for referral (narrative)* Consultation (Routine) - Pending Review Specialty Diagnoses / Procedures Referred By Ish narvaez Referred To Contact Urology Diagnoses Numbness in both legs Bobbi Steen MD [address] [place] [phone] [facility] [address] [place] [phone] Referral ID Status Reason Start Date Expiration Date Visits Requested Visits Authorized [id number] Pending Review Specialty Services Required 11/01/2023 10/31/2024 1 1 * Rehabilitation - Outpatient (Routine) - Closed Specialty Diagnoses / Procedures Referred By Contac t Referred To Contact Rehabilitation Diagnoses Lumbar pain Bobbi Steen MD [address] [facility] [address] [place] [address] [facility] [address] [place] [address] Referral ID Status Reason Start Date Expiration Date Visits Re quested Visits Authorized [id number] Closed 11/01/2023 10/31/2024 1 1 [facility] for referral (narrative)* Consultation (Routine) - Pending Review Specialty Diagnoses / Procedures Referred By Contac t Referred To Contact Endocrinology, Diabetes & Metabolism Diagnoses Type 2 diabetes mellitus with diabetic peripheral angiopathy without gangrene, with long-term current use of insulin ([facility] Alea Mckenzie MD [address] [facility] [place] [address] [facility] Diabetes/Nutrition Ed [address] [place] [address] Referral ID Status Reason Start Date Expiration Date Visits Requested Visits Authorized [id number] Pending Review Specialty Services Required 12/06/2023 12/05/2024 1 1 [facility] for referral (narrative)* Consultation (Routine) - Authorized Specialty Diagnoses / Procedures Referred By Contac t Referred To Contact Cardiology Diagnoses CAD, multiple vessel Procedures Follow Up In Cardiology Gita Watts, [address] [place] [address] 2, [address] [address] Gita Watts, [address] [facility] 2, [facility] [address] [place] [address] Referral ID Status Reason Start Date Expiration Date V isits Requested Visits Authorized [id number] Authorized 01/22/2024 01/21/2025 1 1 [facility] Work Phone: Summary Purpose Family History No Family History Records Found Relationship Condition Age at Onset Recorded Date/T [...] Status:Active Stroke syndrome: Mother Status:Active Advance Directives No Advanced Directives Records Found Advance Directive Response Recorded Date/ Time Advance [...] Documents on File Type Date Recorded Patient Project Lead Expl anation Advance Directive(s) 04/12/2020 7:26 AM Hospital Course Note HNO ID: [id number] Author: Kristen Soto Service: Orthopaedic Surgery Author [...] (more content not included)... Note HNO ID: [id number] Author: Aristeo Tran Service: ? Author Type: [...] primary surgical anesthetic Staffing Anesthesiologist: Shawn Tran TUBE WASHER: Dane Carbajal) Ajit Performed by: TUBE WASHER Preparation Sterility Preparation: hand hygiene performed prior to procedure, surgical cap used, mask used, sterile drape used during line insertion, skin prep agent completely dried prior to procedure Site Prep: Duraprep Procedure Details Patient Position: sitting Ultrasound Guided: No Monitoring: Pulse Ox, EKG and NIBP Approach: Midline Location: L2-3 Needle Needle (more content not included)... Note HNO ID: [id number] Author: Aristeo Tran Service: ? Author Type: [...] not included)... Procedure Findings Note HNO ID: [id number] Author: Aristeo Tran Service: ? Author Type: [...] primary surgical anesthetic Staffing Anesthesiologist: Shawn Tran TUBE WASHER: Dane Carbajal) Ajit Performed by: TUBE WASHER Preparation Sterility Preparation: hand hygiene performed prior to procedure, surgical cap used, mask used, sterile drape used during line insertion, skin prep agent completely dried prior to procedure Site Prep: Duraprep Procedure Details Patient Position: sitting Ultrasound Guided: No Monitoring: Pulse Ox, EKG and NIBP Approach: Midline Location: L2-3 Needle Needle (more content not included)... Note HNO ID: [id number] Author: Aristeo Tran Service: ? Author Type: [...] Equina Syndrom e s/p L4-5 Laminectomy/Fusion Acute PA Reason for Visit Cauda equina janis france [...] Tendinopathy of left rotator cuff Leeann Castillo APRN-ASSEMBLER GOLD FRAME [address] [facility] [address] [place] [address] Referral ID Status Reason Start Date Expiration Date Visits Requested Visits Authorized [id number] Pending Review Specialty Services Required 11/15/2023 11/14/2024 1 1 Specialty Diagnoses / Procedures Referred By Ish narvaez Referred To Contact Diagnoses Bilateral lower extremity edema Procedures Vas venous duplex lwr bilateral Leeann Castillo APRN-CNP [address] [facility] [address] [place] [address] Referral ID Status Reason Start Date Expiration Date V isits Requested Visits Authorized [id number] Pending Review 11/15/2023 11/14/2024 1 1 Specialty Diagnoses / Procedures Referred By Ish narvaez Referred To Contact Diagnoses Numbness in both legs Procedures Measure post void residual Ashley Rodriguez PA [address] [place] [address] Referral ID Status Reason Start Date Expiration Date V isits Requested Visits Authorized [id number] Pending Review 11/26/2023 11/25/2024 1 1 Specialty Diagnoses / Procedures Referred By Ish t Referred To Contact Radiology Diagnoses Biliary colic Procedures NM hepatobiliary system imaging with pharmacologic agent Leeann Castillo, PROMOTIONAL REPRESENTATIVE-ASSEMBLER GOLD FRAME [address] [facility] [address] [place] [address] [facility] [address] [place] [address] Phone: [phone] Referral ID Status Reason Start Date Expiration Date V isits Requested Visits Authorized [id number] Authorized 11/23/2023 11/22/2024 5 5 Additional Source [...] section and content) DATE CREATED AUTHOR 02/26/2018 [facility] DATE CREATED AUTHOR AUTHOR'S ORGANIZ ATION 02/26/2018 [facility] DATE CREATED AUTHOR AUTHOR'S ORGANIZ ATION 11/14/2018 [facility] DATE CREATED AUTHOR AUTHOR'S ORGANIZ ATION 04/14/2020 [facility] DATE CREATED AUTHOR AUTHOR'S ORGANIZ ATION 04/27/2020 [facility] DATE CREATED AUTHOR AUTHOR'S ORGANIZ ATION 01/12/2021 [facility] DATE CREATED AUTHOR AUTHOR'S ORGANIZ ATION 10/18/2021 [facility] DATE CREATED AUTHOR AUTHOR'S ORGANIZ ATION 11/25/2021 [facility] DATE CREATED AUTHOR AUTHOR'S ORGANIZ ATION 12/11/2021 [facility] DATE CREATED AUTHOR AUTHOR'S ORGANIZ ATION 03/23/2022 [facility] DATE CREATED AUTHOR AUTHOR'S ORGANIZ ATION 04/07/2022 [facility] DATE CREATED AUTHOR AUTHOR'S ORGANIZ ATION 01/09/2023 [facility] DATE CREATED AUTHOR AUTHOR'S ORGANIZ ATION 03/16/2023 [facility] DATE CREATED AUTHOR AUTHOR'S ORGANIZ ATION 03/16/2023 [facility] DATE CREATED AUTHOR AUTHOR'S ORGANIZ ATION 07/25/2023 [facility] DATE CREATED AUTHOR AUTHOR'S ORGANIZ ATION 03/28/2024 [facility] DATE CREATED AUTHOR AUTHOR'S ORGANIZ ATION 04/05/2024 [facility] DATE CREATED AUTHOR AUTHOR'S ORGANIZ ATION 04/06/2024 [facility] DATE CREATED AUTHOR AUTHOR'S ORGANIZ ATION 06/03/[address] [facility] DATE CREATED AUTHOR AUTHOR'S ORGANIZ ATION 06/12/2024 [facility] DATE CREATED AUTHOR AUTHOR'S ORGANIZ ATION 06/28/2024 [facility] DATE CREATED AUTHOR AUTHOR'S ORGANIZ ATION 07/01/2024 [facility] DATE CREATED AUTHOR AUTHOR'S ORGANIZ ATION 07/18/2024 [facility] Ambulatory Goals (unrecognized section and content) Goals may [...] Star t: September 26, 2023 Nancy Estrada RN Other Provider Active Start : September 26, 2023 Norma Isabel RN Other Provider Active Start: J anuary 2023 Mary Jackson RN Other Provider Active Star t: September 26, 2023 Maricarmen Reddy RN Other Provider Active Start : September 26, 2023 Liza Laurent RN Other Provider Active Start: anuary 2023 Natali Dasilva MD Other Provider Active Start: September 26, 2023 Martin Dior MD Other Provider Active Start: anuary 2023 Marley Barrera APRN Other Provider [...] Derick Perkins MD Other Provider Active Start: uary 2023 Nuha Martinez APRN Other Provider Active Start: September 26, 2023 Sherif Almaraz MD Other Provider Active Start: September 26, 2023 Amaury Castaneda MD Other Provider Active Start: 2023 Cierra Slaughter MD Other Provider Active Start: September 26, 2023 Meera Shields MD Other Provider Active Start: September 26, 2023 Corin Evans DO Other Provider Active Start: September 26, 2023 Aren Song MD Other Provider Active Start: Mikey moss 2023 Messi Fry MD Other Provider Active Start: Sep Joyce Chapman NP-Jim Other Provider Active St art: September 26, 2023 Leonora Levine APRN Other Provider Active Star t: September 26, 2023 Lev Webster MD Other Provider Active Start: September 26, 2023 Rigo Rosado MD Other Provider Active Start: ajay 2023 Abilio Valentin MD Other Provider Active Start: Sep Alma Rosa Romero MD Other Provider Active Star t: September 26, 2023 Ever Kurtz MD Other Provider Active Start: J anuary 2023 Jodee Mckeon , Other Provider Active Start: Mikey moss 2023 David Ely , Other Provider Active Start : September 26, 2023 Mc Duarte , Other Provider Active Sta rt: September 26, 2023 Kellie Elena APRN Other Provider Active Start: September 26, 2023 Hebert Bonilla , Other Provider Active Start: September 26, 2023 Thomas Harris MD Other Provider Active Sta rt: September 26, 2023 Sully Gavin PROMOTIONAL REPRESENTATIVE Other Provider Active Start : September 26, 2023 Yanet Hector APRN Other Provider Active St art: September 26, 2023 Dunia Franz MD Other Provider Active Start: J anuary 2023 Carlos Alcala MD Other Provider Active S tart: September 26, 2023 Shanice Guardado APRN Other Provider Active S tart: September 26, 2023 Cathy Sparks DO Other Provider Active Start: September 26, 2023 Jada Bob RN Other Provider Active Start: J anuary 2023 Vincent Oliveira MD Attending Pro vider, Other Provider Active Start: September 26, 2023 Team Status: Inactive Member Role Status Dates Tom Paniagua DO Primary Care Provider Active Lula Del Rosario MD Attending Provider Active Numerical Control Operator Relationship Specialty Start Date End Date , Physician [facility] PCP - General 07/20/17 Numerical Control Operator Relationship Specialty Start Date End Date Tom Paniagua DO [address] [place] [address] PCP - General Internal Medicine 09/18/18 Numerical Control Operator Relationship Specialty Start Date End Date Maxime De Jesus, PROMOTIONAL REPRESENTATIVE-PROGRAM DEVELOPER [address] [place] [address] PCP - General Internal Medicine 09/26/23 Team [...] Provider Active Start: October 06, 2023 Chip Gavin APRN Other Provider Active Start: October 06, 2023 Awilda Simental MD Other Provider Active Start: F ebruary 2023 Mei Thomas MD Other Provider Active Start: October 06, 2023 Baltazar Mora MD Other Provider Active Start: F ebruary 2023 Aissatou Thomas , [facility]- Other Provider Active Sta rt: October 06, 2023 Ramila Castillo MD Other Provider Active Start: October 06, 2023 Ivette Osorio MD Other Provider Active St art: October 06, 2023 Alek Damon MD Attending Provider Active Start: October 06, 2023 Numerical Control Operator Relationship Specialty Start Date End Date Maxime De Jesus, PROMOTIONAL REPRESENTATIVE-PROGRAM DEVELOPER [address] [place] [address] PCP - General Internal Medicine 09/26/23 Numerical Control Operator Relationship Specialty Start Date End Date Maxime De Jesus, PROMOTIONAL REPRESENTATIVE-ASSEMBLER GOLD FRAME [address] [place] [address] PCP - General Family Medicine 10/17/23 Numerical Control Operator Relationship Specialty Start Date End Date Maxime De Jesus, PROMOTIONAL REPRESENTATIVE-PROGRAM DEVELOPER [address] [place] [address] PCP - General Internal Medicine 09/26/23 Numerical Control Operator Relationship Specialty Start Date End Date Leeann Castillo APRN-CNP [address] [facility] [address] [facility] [place] [address] PCP - General Internal Medicine 11/15/23 Numerical Control Operator Relationship Specialty Start Date End Date Leeann Castillo APRN-CNP [address] [facility] [address] [facility] [address] PCP - General Internal Medicine 11/15/23 Numerical Control Operator Relationship Specialty Start Date End Date Leeann Castillo APRN-CNP [address] [facility] [address] [facility] [place] [address] PCP - General Internal Medicine 11/15/23 Numerical Control Operator Relationship Specialty Start Date End Date Leeann Castillo APRN-CNP [address] [facility] [address] [place] [address] PCP - General Internal Medicine 11/15/23 Numerical Control Operator Relationship Specialty Start Date End Date Leeann Castillo APRN-CNP [address] [facility] [address] [facility] [place] [address] PCP - General Internal Medicine 11/15/23 Numerical Control Operator Relationship Specialty Start Date End Date Leeann Castillo APRN-CNP [address] [facility] [address] [facility] [place] [address] PCP - General Internal Medicine 11/15/23 Numerical Control Operator Relationship Specialty Start Date End Date Leeann Castillo APRN-CNP [address] [facility] [address] [facility] [place] [address] PCP - General Internal Medicine 11/15/23 Numerical Control Operator Relationship Specialty Start Date End Date Leeann Castillo APRN-ASSEMBLER GOLD FRAME PCP - General Internal Medicine 12/04/23 Numerical Control Operator Relationship Specialty Start Date End Date Leeann Castillo APRN-ASSEMBLER GOLD FRAME [address] [facility] [address] [place] [address] PCP - General Internal Medicine 11/15/23 Numerical Control Operator Relationship Specialty Start Date End Date Leeann Castillo APRN-ASSEMBLER GOLD FRAME [address] [facility] [address] [place] [address] PCP - General Internal Medicine 11/15/23 Numerical Control Operator Relationship Specialty Start Date End Date Tom Paniagua [address] [place] [address] PCP - General 12/12/00 Tom Gottlieb MD [address] [place] [address] Primary Staff Physician Cardiology 11/19/18 Numerical Control Operator Relationship Specialty Start Date End Date Tom Paniagua [address] [place] [address] PCP - General 12/12/00 Tom Gottlieb MD [address] [place] [address] Primary Staff Physician Cardiology 11/19/18 Numerical Control Operator Relationship Specialty Start Date End Date Leeann Castillo APRN-ASSEMBLER GOLD FRAME [address] [facility] [address] [place] [address] PCP - General Internal Medicine 11/15/23 Numerical Control Operator Relationship Specialty Start Date End Date Leeann Castillo, PROMOTIONAL REPRESENTATIVE-ASSEMBLER GOLD FRAME [address] [facility] [address] [place] [address] PCP - General Internal Medicine 07/16/24 Gita Watts DO [address] [place] [address] 2, [address] [address] Consulting Physician Cardiology 07/16/24 Reason for Visit (unrecogniz ed section and content) Reason Comments Follow-up 6 m Specialty Diagnoses / Procedures Referred By Contac t Referred To Contact Cardiology Diagnoses CAD, multiple vessel Procedures Follow Up In Cardiology Gita Watts, [address] [place] [address] [address], [address] [address] Phone: tel: fax: Gita Watts, DO [address] [place] [address] 2, [address] [address] Phone: tel: fax: Referral ID Status Reason Start Date Expiration Date V isits Requested Visits Authorized [id number] Authorized 01/22/2024 01/21/2025 1 1 Reason Comments Diabetes Reason Comments Radio Gen RMP Reason Comments Follow-up Not able to have sx until next year, discuss B12 Reason Comments Follow-up 3 months Specialty Diagnoses / Procedures Referred By Contac t Referred To Contact Cardiology Diagnoses CAD, multiple vessel Procedures Follow Up In Cardiology Chip Gavin, PROMOTIONAL REPRESENTATIVE-ASSEMBLER GOLD FRAME [address] [facility] 2, [address] [address] Gita Watts, [address] [place] [address] 2, [address] [address] Referral ID Status Reason Start Date Expiration Date V isits Requested Visits Authorized [id number] Authorized 10/17/2023 10/16/2024 1 1 Reason Comments Follow-up New pt/establish car e SOB/feet hurt Reason Comments New Patient Specialty Diagnoses / Procedures Referred By Contac t Referred To Contact Urology Diagnoses Numbness in both legs Bobbi Steen MD [address] [facility] [address] [place] [address] [facility] [address] [place] [address] Referral ID Status Reason Start Date Expiration Date Visits Requested Visits Authorized [id number] Pending Review Specialty Services Required 11/01/2023 10/31/2024 1 1 Reason Comments Post-op 6 week post op s/p l umbar decompression with posterolateral fusion Reason Comments Hospital Follow-up [facility] discharge 10/08 Reason Comments transition care Reason Onset Date Comments Hospital Follow-up 09/24/2023 Reason Comments Back Pain Specialty Diagnoses / Procedures Referred By Contac t Referred To Contact Pain Medicine Diagnoses Spinal stenosis of lumbar region without neurogenic claudication Tom Paniagua, DO [address] [place] [address] Gita Sutton MD [address] [place] [address] Referral ID Status Reason Start Date Expiration Date V isits Requested Visits Authorized [id number] Pending Review 09/11/2023 09/10/2024 1 1 Reason [...] or prosecute any alcohol or drug abuse patient.[facility] the event this information is protected by the Federal Confidentiality of Alcohol and Drug Abuse Patient Records regulations: The Federal rules restrict any use of the information to criminally investigate or prosecute any alcohol or drug abuse patient.[facility] FOR RECORDS PERTAINING TO PATIENTS WHO ARE [...] BE BASED ON THE PRIMARY CLINICAL RECORDS. [facility] [employer] [facility]. provides no warranty or guarantee of the accuracy or completeness of information in this document.
--- NOTE | 2024-07-26 10:33 | ECG_ITS ---
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
--- NOTE | 2024-07-26 10:34 | ED.PSYCH1 ---
HPI - Psych General Chief Complaint: Anxiety Stated Complaint: ANXIETY Time Seen by Provider: 07/26/24 10:29 Source: Reports family Mode of arrival: walk-in Limitations: Reports no limitations History of Present Illness HPI Narrative: 68-year-old male presents to the emergency department for anxiety. He has a history of anxiety and wants to get him into [facility] [place]. The patient had complained of some abdominal pain but this seems to have resolved. He had a very large bowel movement here in the emergency department bathroom. He was recently weaned off of his Ativan. Related Data Home Medications ?Medication ?Instructions ?Recorded ?Confirmed Vitamin B12 See Rx Instructions .Route .COMPLEX 07/23/23 07/17/24 buspirone 30 mg tablet 5 mg PO BID 07/23/23 07/17/24 carvedilol 12.5 mg tablet 12.5 mg PO BID 07/23/23 07/17/24 duloxetine 30 mg capsule,delayed 90 mg PO QAM 07/23/23 07/17/24 release insulin glargine U-300 conc 300 60 unit subcut QPM 07/23/23 07/17/24 unit/mL (3 mL) subcutaneous pen (Toujeo Max U-300 SoloStar) insulin lispro 200 unit/mL (3 mL) 1 sliding scale dose subcut TIDWM 07/23/23 07/17/24 subcutaneous pen (Humalog KwikPen U-200 Insulin) lorazepam 0.5 mg tablet 0.5 mg PO QPM 07/23/23 07/17/24 lorazepam 1 mg tablet 1 mg PO QAM 07/23/23 07/17/24 melatonin 3 mg tablet 6 mg PO QPM 07/23/23 07/17/24 semaglutide 2 mg/dose (8 mg/3 mL) 2 mg subcut QWEEK 07/23/23 07/17/24 subcutaneous pen injector (Ozempic) atorvastatin 80 mg tablet 80 mg PO DAILY 06/25/24 07/17/24 clopidogrel 75 mg tablet 75 mg PO DAILY 06/25/24 07/17/24 empagliflozin 25 mg tablet 25 mg PO DAILY 06/25/24 07/17/24 (Jardiance) losartan 25 mg tablet 25 mg PO DAILY 06/25/24 07/17/24 spironolactone 25 mg tablet 25 mg PO DAILY 06/25/24 07/17/24 trazodone 100 mg tablet 50 mg PO BEDTIME PRN sleep 06/25/24 07/17/24 Allergies Allergy/AdvReac Type Severity Reaction Status Date / Time No Known Drug Allergies Allergy Verified 07/26/24 10:11 Review of Systems ROS Narrative Not obtainable, psychiatric condition PFSH PFSH Social History Little interest or pleasure in doing things: several days Feeling down, depressed, or hopeless: several days Exam Narrative Exam Narrative: Nurses note and vital signs reviewed and patient is not hypoxic. General: The patient is pacing in the room when I walk in. Skin: Warm, dry, no pallor noted. There is no rash noted. Head: Normocephalic, atraumatic Eye: Normal conjunctiva, no drainage Ears, Nose, Mouth, and Throat: oral mucosa is moist. Nares patent. Cardiovascular: Regular Rate and Rhythm Respiratory: Patient is in no distress, no accessory muscle use, lungs are clear to auscultation, no wheezing, rales or rhonchi Back: non-tender GI: Normal bowel sounds, no tenderness to palpation, no masses appreciated. No rebound, guarding, or rigidity noted. Musculoskeletal: The patient has no evidence of calf tenderness, no pitting edema, symmetrical pulses noted bilaterally Neurological: Awake and alert Psychiatric: He is easily distracted, he is directable Constitutional Vital Signs, click to edit/add: Last Vital Signs Temp 97.6 F 07/26/24 10:12 Pulse 71 07/26/24 10:12 Resp 16 07/26/24 10:12 BP 128/80 07/26/24 10:12 Pulse Ox 99 07/26/24 10:12 O2 Del Method Room Air 07/26/24 10:12 Course Vital Signs Vital signs: Vital Signs Temperature 97.6 F 07/26/24 10:12 Pulse Rate 71 07/26/24 10:12 Respiratory Rate 16 07/26/24 10:12 Blood Pressure 128/80 07/26/24 10:12 Pulse Oximetry 99 07/26/24 10:12 Oxygen Delivery Method Room Air 07/26/24 10:12 Temperature 97.6 F 07/26/24 10:12 Pulse Rate 71 07/26/24 10:12 Respiratory Rate 16 07/26/24 10:12 Blood Pressure 128/80 07/26/24 10:12 Pulse Oximetry 99 07/26/24 10:12 Oxygen Delivery Method Room Air 07/26/24 10:12 MDM - Psych MDM Narrative Medical decision making narrative: The patient presents with anxiety and the patient will be transferred to [facility] in [facility]. He is stable and agreeable for transfer. Mental health services have also been involved. Differential Diagnosis Differential diagnosis: Likely depression and acute anxiety Lab Data Attestation: I reviewed the patient's lab results. Labs: Lab Results 07/26/24 07/26/24 07/26/24 Range/Units 10:25 10:46 14:30 WBC 12.4 H (4.0-11.0) 10^3/uL RBC 4.71 (4.70-6.10) 10^6/uL Hgb 14.6 (14.0-18.0) g/dL Hct 44.2 (42.0-54.0) % MCV 93.8 (80.0-94.0) fL MCH 31.0 (25.9-34.0) pg MCHC 33.0 (29.9-35.2) g/dL RDW 15.0 (11.0-15.0) % Plt Count 276 (150-450) 10^3/uL MPV 8.9 L (9.5-13.5) fL Neut % (Auto) 79.8 H (43.0-75.0) % Lymph % (Auto) 12.1 L (20.5-60.0) % [place] % (Auto) 6.5 (1.7-12.0) % Eos % (Auto) 1.1 (0.9-7.0) % Baso % (Auto) 0.3 (0.2-2.0) % Neut # (Auto) 9.9 H (1.4-6.5) 10^3/uL Lymph # (Auto) 1.5 (1.2-3.8) 10^3/uL [place] # (Auto) 0.8 (0.3-0.8) 10^3/uL Eos # (Auto) 0.1 (0.0-0.7) 10^3/uL Baso # (Auto) 0.0 (0.0-0.1) 10^3/uL Abs Immat Gran (auto) 0.03 (0.00-0.03) 10^3/uL Imm/Tot Granulo (auto) 0.2 (0.0-0.5) % Sodium 138 (136-145) mmol/L Potassium 4.4 (3.5-5.1) mmol/L Chloride 104 (98-107) mmol/L Carbon Dioxide 22.8 (21.0-32.0) mmol/L Anion Gap 15.6 BUN 38.0 H (7.0-18.0) mg/dL Creatinine 0.88 (0.70-1.30) mg/dL Est GFR ( Amer) >60 (>=60 mL/min/1.73m^2) Est GFR (Non-Af Amer) >60 (>=60 mL/min/1.73m^2) BUN/Creatinine Ratio 43.2 Glucose 153 H (74-106) mg/dL Calcium 9.0 (8.5-10.1) mg/dL Total Bilirubin 0.5 (0.2-1.0) mg/dL Direct Bilirubin 0.1 (0.0-0.2) mg/dL AST 20 (15-37) U/L ALT 38 (16-63) U/L Alkaline Phosphatase 65 (46-116) U/L Total Protein 7.3 (6.4-8.2) g/dL Albumin 3.4 (3.4-5.0) g/dL Globulin 3.9 g/dL Albumin/Globulin Ratio 0.9 Amylase 99 (25-115) U/L Lipase 82.0 H (16.0-77.0) U/L Urine Color Lt. yellow (YELLOW) Urine Clarity Clear (CLEAR) Urine pH 6.0 (5.0-9.0) Ur Specific [place] 1.020 (1.005-1.025) Urine Protein Negative (NEG/TRACE) mg/dL Urine Glucose (UA) >=1000 A (NEGATIVE) mg/dL Urine Ketones Trace A (NEGATIVE) mg/dL Urine Occult Blood Negative (NEGATIVE) Urine Nitrite Negative (NEGATIVE) Urine Bilirubin Negative (NEGATIVE) Urine Urobilinogen 0.2 (0.2-1.0) EU/dL Ur Leukocyte Esterase Negative (NEGATIVE) Urine RBC 0-2 (0-2) #/HPF Urine WBC 0-2 A (NONE SEEN) #/HPF Ur Squamous Epith Cells Rare (NONE/RARE) #/LPF Urine Crystals None seen (None Seen) #/HPF Urine Bacteria None seen (NONE SEEN) #/HPF Urine Casts None seen (NONE SEEN) #/LPF Urine Mucus None seen (NONE SEEN) Salicylates <2.8 (<=19.9) mg/dL Urine Opiates Screen Negative (NEGATIVE) Ur Buprenorphine Scrn Negative (NEGATIVE) Ur Oxycodone Screen Negative (NEGATIVE) Urine Methadone Screen Negative (NEGATIVE) Acetaminophen <2.0 L (10.0-30.0) ug/mL Ur Barbiturates Screen Negative (NEGATIVE) U Tricyclic Antidepress Negative (NEGATIVE) Ur Phencyclidine Scrn Negative (NEGATIVE) Ur Amphetamines Screen Negative (NEGATIVE) U Methamphetamines Scrn Negative (NEGATIVE) U Benzodiazepines Scrn Negative (NEGATIVE) Urine Cocaine Screen Negative (NEGATIVE) U Cannabinoids Screen Negative (NEGATIVE) Ethanol Quant <3 mg/dL SARS-CoV-2 Ag (CV2AG) Negative (NEGATIVE) ECG Data Attestation: I personally reviewed and interpreted this ECG as follows: (EKG on my interpretation shows sinus rhythm with rate of 79 and no acute change.) Discharge Plan Discharge Chief Complaint: Anxiety Clinical Impression: Anxiety Patient Disposition: [facility] Time of Disposition Decision: 15:09 Discharge location: [facility] Condition: Fair Mode of Transportation: Private Vehicle
[2024-07-26 10:55] LABS: Bilirubin Urine NEGATIVE (NEGATIVE); Blood Urine NEGATIVE (NEGATIVE); Clarity Urine CLEAR (CLEAR); Color Urine LT. YELLOW (YELLOW); Glucose Urine UA >=1000 mg/dL (NEGATIVE); Ketones Urine TRACE mg/dL (NEGATIVE); Leukocyte Esterase Urine NEGATIVE (NEGATIVE); Nitrite Urine NEGATIVE (NEGATIVE); Protein Urine NEGATIVE (NEG/TRACE); Urobilinogen Urine 0.2 EU/dL (0.2-1.0)
[2024-07-26 10:57] LABS: Basophils Percent Auto 0.3 % (0.2-2.0); Eosinophils Absolute Auto 0.1 10^3/uL (0.0-0.7); Eosinophils Percent Auto 1.1 % (0.9-7.0); Hematocrit 44.2 % (42.0-54.0); Hemoglobin 14.6 g/dL (14.0-18.0); Immature Granulocytes Abs Auto 0.03 10^3/uL (0.00-0.03); Immature Granulocytes Pct Auto 0.2 % (0.0-0.5); Lymphocytes Absolute Auto 1.5 10^3/uL (1.2-3.8); Lymphocytes Percent Auto 12.1 % (20.5-60.0); Mean Corpuscular Volume 93.8 fL (80.0-94.0); Mean Platelet Volume 8.9 fL (9.5-13.5); Monocytes Absolute Auto 0.8 10^3/uL (0.3-0.8); Monocytes Percent Auto 6.5 % (1.7-12.0); Neutrophils Absolute Auto 9.9 10^3/uL (1.4-6.5); Neutrophils Percent Auto 79.8 % (43.0-75.0); Platelet Count 276 10^3/uL (150-450); Red Blood Count 4.71 10^6/uL (4.70-6.10); White Blood Count 12.4 10^3/uL (4.0-11.0)
[2024-07-26 11:09] LABS: Amphetamine Screen Urine NEGATIVE (NEGATIVE); Barbiturates Screen Urine NEGATIVE (NEGATIVE); Benzodiazepines Screen Urine NEGATIVE (NEGATIVE); Buprenorphine Screen Urine NEGATIVE (NEGATIVE); Cannabinoid Screen Urine NEGATIVE (NEGATIVE); Cocaine Screen Urine NEGATIVE (NEGATIVE); Methadone Screen Urine NEGATIVE (NEGATIVE); Methamphetamines Screen Urine NEGATIVE (NEGATIVE); Opiate Screen Urine NEGATIVE (NEGATIVE); Oxycodone Screen Urine NEGATIVE (NEGATIVE); Phencyclidine Screen Urine NEGATIVE (NEGATIVE); Tricyclic Antidepressant Urine NEGATIVE (NEGATIVE)
[2024-07-26 11:12] LABS: Alanine Aminotransferase 38 U/L (16-63); Albumin Globulin Ratio 0.9; Albumin Level 3.4 g/dL (3.4-5.0); Alkaline Phosphatase 65 U/L (46-116); Amylase 99 U/L (25-115); Anion Gap 15.6; Aspartate Amino Transferase 20 U/L (15-37); BUN Creatinine Ratio 43.2; Bilirubin Direct 0.1 mg/dL (0.0-0.2); Bilirubin Total 0.5 mg/dL (0.2-1.0); Carbon Dioxide 22.8 mmol/L (21.0-32.0); Chloride 104 mmol/L (98-107); Estimated GFR (African America >60 (>=60 mL/min/1.73m^2); Estimated GFR (Non-African Ame >60 (>=60 mL/min/1.73m^2); Globulin 3.9 g/dL; Glucose 153 mg/dL (74-106); Potassium 4.4 mmol/L (3.5-5.1); Salicylate <2.8 mg/dL (<=19.9); Sodium 138 mmol/L (136-145); Total Protein 7.3 g/dL (6.4-8.2)
[2024-07-26 11:13] LABS: Bacteria Urine NONE SEEN #/HPF (NONE SEEN); Cast Seen? NONE SEEN #/LPF (NONE SEEN); Crystals Seen? None Seen #/HPF (None Seen); Mucus Urine NONE SEEN (NONE SEEN); RBC Urine 0-2 #/HPF (0-2); Squamous Epithelial Cell Urine RARE #/LPF (NONE/RARE); WBC Urine 0-2 #/HPF (NONE SEEN)
[2024-07-26 11:23] LABS: Acetaminophen <2.0 ug/mL (10.0-30.0)
[2024-07-26 11:32] LABS: Ethanol <3 mg/dL
[2024-07-26] MEDS: HYDROXYZINE HCL 25 MG TABLET PO (11:49)
[2024-07-26 12:00] VITALS: PULSE 86
[2024-07-26 14:50] LABS: Internal Control Within Normal Limits; SARS-CoV-2 Ag NEGATIVE (NEGATIVE)
[2024-07-26 15:32] VITALS: BP 124/87; PULSE 75; O2SAT 99
== END 2024-07-26 15:33 ==
PROVIDERS: Emergency Provider Emergency Medicine; PCP Nurse Practitioner
DX: F41.9 Anxiety disorder, unspecified (principal)
CPT/HCPCS: 36415; 80048; 80076; 80179; 80307; 80320; 80329; 81001; 82150; 83690; 85025; 87811; 93005; 99285

== ENCOUNTER 2024-10-10 16:43 | Emergency (ER) | payer MEDICARE, SELFPAY ==
[2024-10-10 17:14] VITALS: BP 149/76; PULSE 68; TEMP 36.8; O2SAT 96; BMI 34.9
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
[2024-10-10] MEDS: TRAMADOL HCL 50 MG TABLET PO (18:22)
== END 2024-10-10 18:24 | disposition home or self-care (01) ==
PROVIDERS: Emergency Provider Student in an Organized Health Care Education/Training Program; PCP Nurse Practitioner
DX: T24.009A Burn of unspecified degree of unspecified site of unspecified lower limb, except ankle and foot, initial encounter (principal); X10.0XXA Contact with hot drinks, initial encounter
CPT/HCPCS: 99283

== ENCOUNTER 2025-03-21 17:33 | Emergency (ER) | payer MEDICARE, SELFPAY ==
--- OUTSIDE RECORDS SUMMARY | 2025-03-17 10:00 | XMS_ITS | Encounter Summary ---
Author Organization plista s tem Address [id number] [address] [place] [address] Care Team Providers Care Farm Helper Name Role Phone Leeann Marshall Primary Care Provider [phone] Reason for Referral * Consultation (Routine) - Pending Review Specialty Diagnoses / Procedures Referred By Ish t Referred To Contact Neurology Diagnoses Pseudodementia Leeann Marshall APRN-CNP [address] [facility] [address] [address] Phone: tel: fax: Kayden Morse MD [address] [address] Phone: tel: fax: Referral ID Status Reason Start Date Expiration Date Visits Requested Visits Authorized [id number] Pending Review Specialty Services Required 03/17/2025 03/17/2026 1 1 Reason for Visit * Reason Comments Follow-up MAWE Encounter Details Date Type Department Care Team ([facility] Contact Info) Description 03/17/2025 10:00 AM EDT Office Visit [facility]/Kayden Morse MD [address] [facility] [address] [place] [phone] Leeann Marshall APRN-CNP [address] [facility] [address] [address] Medicare annual wellness visit, subsequent (Primary Dx); Type 2 diabetes mellitus with diabetic peripheral angiopathy without gangrene, with long-term current use of insulin ([facility]); Primary hypertension; Pseudodementia; Obesity, morbid ([facility]); CAD, multiple vessel; Mixed hyperlipidemia; Moderate episode of recurrent major depressive disorder ([facility]); Gait disturbance; Incontinence of feces, unspecified fecal incontinence type Social History Tobacco Use Types Packs/Day Years Used Date Smoking Tobacco: Never Smokeless Tobacco: Never Alcohol Use Standard Drinks/Week Comments Not Currently 0 (1 standard drink = 0.6 oz pur e alcohol) Social Connection and Isolat ion Panel [NHANES] Answer Date Recorded In a typical week, how many times do you talk on the phone with family, friends, or neighbors? More than three times a week 04/17/2023 How often do you get togethe r with friends or relatives? More than three times a week 04/17/2023 How often do you attend chur or mormonism services? More than 4 times per year 04/17/2023 Do you belong to any clubs o r organizations such as yazdanism groups, unions, fraternal or athletic groups, or school groups? Yes 04/17/2023 How often do you attend meet ings of the clubs or organizations you belong to? Never 04/17/2023 Are you , , di vorced, , never , or living with a partner? 04/17/2023 AUDIT-C Answer Date Recorded Q1: How often do you have a drink containing alcohol? Never 09/20/2023 Q2: How many drinks containi ng alcohol do you have on a typical day when you are drinking? Patient does not drink Q3: How often do you have si x or more drinks on one occasion? Never 09/20/2023 Overall Financial Resource Strain (CARDIA) Answe r Date Recorded How hard is it for you to pa y for the very basics like food, housing, medical care, and heating? Not very hard 04/17/2023 PHQ-2 Answer Date Recorded Total Score 13 03/17/2025 [facility] Occupat ional Health - Occupational Stress Questionnaire Answer Date Recorded Do you feel stress - tense, restless, nervous, or anxious, or unable to sleep at night because your mind is troubled all the time - these days? Rather much 04/17/2023 Exercise Vital Sign Answer Date Recorde d On average, how many days pe r week do you engage in moderate to strenuous exercise (like a brisk walk)? 4 days 04/17/2023 On average, how many minutes do you engage in exercise at this level? 60 min 04/17/2023 PRAPARE - Transportation Answer Date Re corded In the past 12 months, has l ack of transportation kept you from medical appointments or from getting medications? No 04/03 In the past 12 months, has l ack of transportation kept you from meetings, work, or from getting things needed for daily living? No 04/17/2023 Housing Instability Answer Date Recorde d Are you worried or concerned that in the next two months you may not have stable housing that you own, rent or stay in as a part of a household? No 04/17/2023 Childcare Answer Date Recorded Do problems getting child ca re make it difficult for you to work or study? No 04/17/2023 Employment Answer Date Recorded Do you need help finding a [facility] career center and/or a training program? No 04/17/2023 Hunger Screening Answer Date Recorded Within the past 12 months we worried whether our food would run out before we got money to buy more. Never True 01/18/2025 Within the past 12 months th e food we bought just didn't last and we didn't have money to get more. Never True 01/18/2025 Purpose - Life Answer Date Recorded I have a purpose and direction in my life. Somew hat Agree 04/17/2023 Sex and Gender Information Value Date Recorded Sex Assigned at Not on file Legal Sex Male 11:45 AM EDT Gender Identity Not on file Sexual Orientation Not on file documented as of this encounter Last Filed Vital Signs Vital Sign Reading Time Taken Comments Blood Pressure 140/82 03/17/2025 10:19 AM EDT Pulse 76 03/17/2025 10:19 AM EDT Temperature 36.2 C (97.2 F) 03/17/2025 10:19 AM EDT Respiratory Rate - - Oxygen Saturation 98% 03/17/2025 10:19 AM EDT Inhaled Oxygen Concentration - - Weight 116.6 kg (257 lb) 03/17/2025 10:19 AM EDT Height 180.3 cm (5' 11 ) 03/17/2025 10:19 AM EDT Body Mass Index 35.84 03/17/2025 10:19 AM EDT documented in this encounter Progress Notes * Leeann Marshall APRN-QI - 03/17/2025 10:00 AM EDT Subjective SUBJECTIVE: Patient ID: Tom Dye is a 69 y.o. male who presents for a Medicare Annual Wellness exam. HPI The following portions of the patient's history were reviewed and updated as appropriate: allergies, current medications, past family history, past medical history, past social history, past surgicalhistory and problem list. Here for MAWE, multiple other items discussed Seeing psychiatry biweekly, next appt 04/15 Per , delusional, hyperfocused on past, high anxiety, esthetician spa awakenings. Pt denies SI orHI. 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 Already had PAT done and got cardiology clearance, reviewed Medication list reviewed in detail DM managed per endo Wt Readings from Last 3 Encounters: 03/17/25 116.6 kg (257 lb) 01/18/25 113.4 kg (250 lb) 01/14/25 114.3 kg (252 lb) AWV FLOWSHEET : Lifestyle Assessment Do you smoke or use smokeless tobacco?: No If you smoke or use smokeless tobacco, are you ready to quit?: NA Are you exposed to secondhand smoke?: No On average, how many drinks of alcohol do you consume in a week?: None Do you exercise for 30 or more minutes on average at least 3 days a week?: Often Do you have any tooth, denture, or oral problems?: No Do you snore or has anyone told you that you snore?: (!) Yes Do you try to eat a balanced diet?: Yes Do you experience leakage of urine, also known as urinary incontinence?: (!) Sometimes Do you have difficulty bathing?: No Do you have difficulty dressing?: No Do you have difficulty grooming?: No Do you have difficulty eating?: No Do you have difficulty getting out of a chair?: No Do you have difficulty walking?: No Do you have difficulty using the toilet?: No Do you have difficulty doing laundry?: (!) Yes Do you have difficulty with housekeeping?: No Do you have difficulty preparing a meal?: (!) Yes Do you have difficulty shopping?: No Do you have difficulty using transportation?: No Do you have difficulty paying bills?: (!) Yes Do you have difficulty managing finances?: (!) Yes Fall Risk Fall Risk Assessment Completed?: Yes Have you fallen in the past year?: (!) Yes How many times?: 2+ Were you injured?: (!) Yes Are you worried about falling?: No Do you feel unsteady when standing or walking?: (!) Yes Risk Stratification: High Risk Depression Screening Little interest or pleasure in doing things: (!) Nearly every day Feeling down, depressed, or hopeless: (!) Nearly every day Feeling bad about yourself - or that you are a failure or have let yourself or your family down: (!) Nearly every day Trouble concentrating on things, such as reading the newspaper or watching television: (!) Nearly every day Thoughts that you would be better off , or of hurting yourself in some way: (!) Several days PEG Scale What number best describes your pain on average in the past week?: 7 What number best describes how, during the past week, pain has interfered with your enjoyment of life?: 5 What number best describes how, during the past week, pain has interfered with your general activity?: 3 PEG Pain Total Score: 5 Safety Assessment Do you have throw rugs on the floor?: (!) Yes Do you feel safe at your home?: Yes Do you feel unsteady when walking?: No Are you having difficulty with driving?: No Do you have trouble seeing?: No Do you use a bath bar/seat?: No Do you use a raised toilet seat?: No Do you use a cane?: No Do you use a walker?: No Do you use a wheelchair?: No Hearing Assessment Do you strain or struggle to hear/understand conversations?: (!) Yes Do you have trouble hearing the television or radio when others do not?: (!) Yes Does your family ever voice concerns about your hearing?: (!) Yes Do you wear hearing aid/s?: No Personal Health During the past 4 weeks, how would you rate your overall health?: (!) Fair Do you understand how to take all of your medications?: Yes How confident are you that you can control and manage most of your health problems?: (!) Not very confident In the past 12 months, how many times have you been hospitalized?: (!) One End of Life Planning Do you have a living will?: Yes Do you have a durable power of sports attorney?: Yes Cognitive Screening Do you have trouble remembering or recalling facts or events?: (!) Yes Do family members or caregivers report that you have difficulty remembering things?: (!) Yes Clock Drawing Test: Normal REVIEW OF SYSTEMS: Review of Systems Respiratory: Negative for shortness of breath. Cardiovascular: Negative for chest pain. Genitourinary: Positive for difficulty urinating. Musculoskeletal: Positive for arthralgias (minimal shoulder pain). Psychiatric/Behavioral: Positive for behavioral problems, dysphoric mood and sleep disturbance. Thepatient is nervous/anxious. Objective PHYSICAL EXAMINATION: Vitals: 03/17/25 1019 BP: 140/82 BP Site: Left Arm BP Postition: Sitting Pulse: 76 Temp: 36.2 ??C (97.2 ??F) SpO2: 98% Weight: 116.6 kg (257 lb) Height: 180.3 cm (5' 11 ) Physical Exam Nursing note reviewed. Cardiovascular: Rate and Rhythm: Normal rate and regular rhythm. Heart sounds: Normal heart sounds, S1 normal and S2 normal. Pulmonary: Effort: Pulmonary effort is normal. Breath sounds: Normal breath sounds. No decreased breath sounds, wheezing, rhonchi or rales. Skin: General: Skin is warm and dry. Neurological: Mental Status: He is alert and oriented to person, place, and time. Gait: Gait abnormal and tandem walk abnormal. Psychiatric: Mood and Affect: Mood is anxious. Speech: Speech normal. Assessment/Plan ASSESSMENT/PLAN Tom was seen today for follow-up. Diagnoses and all orders for this visit: Medicare annual wellness visit, subsequent Type 2 diabetes mellitus with diabetic peripheral angiopathy without gangrene, with long-term current use of insulin ([facility]) - TOUJEO MAX U-300 SOLOSTAR 300 unit/mL (3 mL) insulin pen; Inject 42 Units under the skin in the morning. Up to 75 units daily. Primary hypertension Pseudodementia - Ambulatory referral to Neurology (Non[facility]); Future Obesity, morbid ([facility]) CAD, multiple vessel Mixed hyperlipidemia Moderate episode of recurrent major depressive disorder ([facility]) Gait disturbance Neuropsych evaluation He is scheduled with neurology and routinely sees psychiatry I recommend he hold off on shoulder placement as he is not having any profound shoulder symptoms. Neuropsych symptoms need better managed first. Recommend he does proceed with the colonoscopy however F/U 3 months TERRY Monteiro 03/20/25 0652 documented in this encounter Plan of Treatment Upcoming Encounters Date Type Department Care Team (Late st Contact Info) Description 06/19/2025 10:20 AM EDT Office Visit [facility] Internal [facility]/Kayden Morse MD [address] [facility] [address] [place] [phone] Leeann Marshall APRN-CNP [address] [facility] [address] [place] [address] 07/22/2025 11:00 AM EST Office Visit [facility], A Department of [facility] [address] [facility] [address] [place] [id number] Alea Mckenzie MD [address] [facility] [place] [address] 12/14/2025 3:15 PM EDT [facility] [address] [place] [address] [place] [phone] Nathan Blankenship MD [address] [place] [id number] Scheduled Referrals Name Type Priority Associated Diagnoses Order Schedule Ambulatory referral to Neurology (Non[facility]) Outpatient Referral Routine Pseudodementia 1 Occurrences starting 03/17/2025 until 03/17/2026 documented as of this encounter Goals Goal Patient Goal Type Associated Problems Recent Progress Patient-Stated? Author Return home General Yes Adeline Tran, RN Note: Evaluation of progress towards goal: Plan to return home with spouse. 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 Obesity, morbid ([facility]) Morbid obesity CAD, multiple vessel Mixed hyperlipidemia Moderate episode of recurrent major depressive disorder ([facility]) Gait disturbance Abnormality of gait Incontinence of feces, unspecified fecal incontinence type documented in this encounter Additional Health Concerns Assessment Noted Time PHQ-9 Depression Total Score: 13 025 10:00 AM EDT documented as of this encounter Care Teams Farm Helper Relationship Specialty Start Date End Date Leeann Marshall APRN-QI [address] [facility] [address] [place] [address] PCP - General Internal Medicine 11/15/23 documented as of this encounter
--- OUTSIDE RECORDS SUMMARY | 2025-03-19 11:20 | XMS_ITS | Encounter Summary ---
Author Organization [facility] Address [address] [place] [address] Phone Care Team Providers Care Cigarette Examiner Name Role Phone Leeann Marshall NARCOTICS AND/OR VICE DETECTIVE-VOLTAGE REGULATOR ASSEMBLER Primary Care Provider [phone] Riley Watts DO Unavailable [phone] Reason for Referral * Consultation (Routine) - Authorized Specialty Diagnoses / Procedures Referred By Ish narvaez Referred To Contact Cardiology Diagnoses ASHD (arteriosclerotic heart disease) Procedures Follow Up In Cardiology Riley Watts DO [address] [place] [address], [address] [address] Phone: tel: fax: Riley Watts DO [address] [place] [address] 2, [address] [address] Phone: tel: fax: Referral ID Status Reason Start Date Expiration Date V isits Requested Visits Authorized [id number] Authorized 03/19/2025 03/19/2026 1 1 Reason for Visit * Reason Comments Follow-up 8 month Follow up fo r Coronary Artery Disease * Consultation (Routine) - Authorized Specialty Diagnoses / Procedures Referred By Contkamryn narvaez Referred To Contact Cardiology Diagnoses CAD, multiple vessel Procedures Follow Up In Cardiology Riley Watts DO [address] [place] [address] 2, [address] [address] Phone: tel: fax: Riley Watts DO [facility] 2, [address] [address] Phone: tel: fax: Referral ID Status Reason Start Date Expiration Date V isits Requested Visits Authorized [id number] Authorized 07/16/2024 07/16/2025 1 1 Encounter Details Date Type Department Care Team (Latest Contact Info) Description 03/19/2025 11:20 AM EDT Office Visit [facility] [address] [phone] Riley Watts, DO 703 [facility] 2, [address] [address] ASHD (arteriosclerotic heart disease); History of coronary artery bypass graft; History of PTCA; Shortness of breath; Type 2 diabetes mellitus without complication, with long-term current use of insulin; Anxiety; Never smoked cigarettes; BMI 35.0-35.9,adult; Mixed hyperlipidemia Social History Tobacco Use Types Packs/Day Years Used Date Smoking Tobacco: Never Smokeless Tobacco: Never Alcohol Use Standard Drinks/Week Comments Never 0 (1 standard drink = 0.6 oz pur e alcohol) Sex and Gender Information Value Date Recorded Sex Assigned at Not on file Legal Sex Male 4:36 PM EST Gender Identity Not on file Sexual Orientation Not on file documented as of this encounter Last Filed Vital Signs Vital Sign Reading Time Taken Comments Blood Pressure 110/72 03/19/2025 11:41 AM EDT Pulse 72 03/19/2025 11:41 AM EDT Temperature - - Respiratory Rate - - Oxygen Saturation - - Inhaled Oxygen Concentration - - Weight 115 kg (253 lb) 03/19/2025 11:41 AM EDT Height 180.3 cm (5' 11 ) 03/19/2025 11:41 AM EDT Body Mass Index 35.29 03/19/2025 11:41 AM EDT documented in this encounter Patient Instructions * Patient Instructions* Lovely Torres LPN - 03/19/2025 11:20 AM EDT Please bring all medicines, vitamins, and herbal supplements with you when you come to the office. Prescriptions will not be filled unless you are compliant with your follow up appointments or have a follow up appointment scheduled as per instruction of your physician. Refills should be requested at the time of your visit. BMI was above normal measurement. Current weight: 115 kg (253 lb) Weight change since last visit (-) denotes wt loss 21 lbs Weight loss needed to achieve BMI 25: 74.1 Lbs Weight loss needed to achieve BMI 30: 38.4 Lbs Provided instructions on dietary changes. * Attachments The following attachments cannot be sent through Care Everywhere. * Preventing Falls ED (American) * Heart Healthy Diet (American) documented in this encounter Progress Notes * Riley Watts, - 03/19/2025 11:20 AM EDT Chief Complaint Patient presents with Follow-up 8 month Follow up for Coronary Artery Disease Subjective Tom Dye is a 69 y.o. male 69-year-old gentleman returns for 8-month cardiovascular follow-up, he has persistent mental healthdisorder, anxiety, here with a family friend today. He has significant amount of nausea, our nursespalliated him with crackers and water. He does admit to occasional shortness of breath but he states this may likely be related to his anxiety. He has no angina or exertional disability or ACS or heart failure events or repeat hospitalizations other than recent episode of falling/imbalance that required evaluation in outside ER. Non-ST elevation DE in October 2023 with primary revascularization of the distal RCA and PLV branch and ramus branch with several drug-eluting stents and preserved LV function and notably patent PITTS-sequential graft LAD-diagonal the remainder is 3 bypass grafts are occluded. He remains on appropriate GDMT, we reviewed his interventional and Paralegal reports, medications and recent ER evaluation for noncardiac event. Recommendations: Obtain lipid panel, chemistry, BNP, high-sensitivity CRP, follow-up in 1 year Review of Systems All other systems reviewed and are negative. Vitals: 03/19/25 1141 BP: 110/72 BP Location: Right arm Patient Position: Sitting Pulse: 72 Weight: 115 kg (253 lb) Height: 1.803 m (5' 11 ) [...] no known allergies. Current Medications Current Outpatient Medications Medication Instructions aspirin 81 mg, Daily atorvastatin (LIPITOR) 80 mg, oral, Daily busPIRone (BUSPAR) 20 mg, 2 times daily carvedilol (COREG) 12.5 mg, oral, 2 times daily clopidogrel (PLAVIX) 75 mg, oral, Daily divalproex sprinkle (DEPAKOTE SPRINKLE) 250 mg, 2 times daily DULoxetine (CYMBALTA) 60 mg, Daily empagliflozin (JARDIANCE) 25 mg, Daily insulin lispro protamin-lispro (HumaLOG Mix 50-50 KwikPen) 100 unit/mL (50-50) injection 2 times daily (morning and late afternoon) LORazepam (ATIVAN) 0.5 mg losartan (COZAAR) 25 mg, oral, Daily melatonin 3 mg capsule 2 capsules, Nightly mirtazapine (REMERON) 15 mg, Nightly nitroglycerin (NITROSTAT) 0.4 mg, sublingual, Every 5 min PRN, May repeat dose every 5 minutes for up to 3 doses total. omega 4-xhg-bra-fish oil (Fish OiL) 1,000 mg (120 mg-180 mg) capsule 1 capsule, Daily Ozempic 2 mg, Every 7 days potassium chloride CR (Klor-Con) 10 mEq ER tablet 10 mEq, oral, Daily, Do not crush, chew, or split. risperiDONE (RISPERDAL M-TAB) 1 mg, 2 times daily spironolactone (Aldactone) 25 mg tablet TAKE 1/2 TABLET BY MOUTH DAILY FOR 30 DAYS Toujeo Max U-300 SoloStar 300 unit/mL (3 mL) injection INJECT 66 UNITS UNDER THE SKIN IN THE MORNING. traZODone (DESYREL) 100 mg, Nightly Assessment/Plan 1. ASHD (arteriosclerotic heart disease) Follow Up In Cardiology 2. History of coronary artery bypass graft 3. History of PTCA 4. Shortness of breath 5. Type 2 diabetes mellitus without complication, with long-term current use of insulin 6. Anxiety 7. Never smoked cigarettes 8. BMI 35.0-35.9,adult 9. Mixed hyperlipidemia Scribe Attestation By signing my name below, ILovely LPN, Scribshayla attest that this documentation has been prepared under the direction and in the presence of Zana Watts DO. Provider Attestation - Scribe documentation All medical record entries made by the Scribe were at my direction and personally dictated by me. Ihave reviewed the chart and agree that the record accurately reflects my personal performance of the history, physical exam, discussion and plan. documented in this encounter Plan of Treatment Upcoming Encounters Date Type Department Care Team (Late st Contact Info) Description 03/24/2026 10:00 AM EDT Office Visit [facility] [address] [phone] Riley Watts DO 703 [facility] 2, [address] [id number] Scheduled Orders Name Type Priority Associated Diagnoses Orde r Schedule Lipid Panel Lab Routine ASHD (arteriosclerotic heart disease) History of PTCA Mixed hyperlipidemia Expected: 03/19/2025, Expires: 03/19/2026 Alanine Aminotransferase Lab Routine ASHD (arteriosclerotic heart disease) History of PTCA Mixed hyperlipidemia Expected: 03/19/2025, Expires: 03/19/2026 Aspartate Aminotransferase Lab Routine ASHD (arteriosclerotic heart disease) History of PTCA Mixed hyperlipidemia Expected: 03/19/2025, Expires: 03/19/2026 Basic Metabolic Panel Lab Routine ASHD (arteriosclerotic heart disease) Shortness of breath Expected: 03/19/2025, Expires: 03/19/2026 B-Type Natriuretic Peptide Lab Routine ASHD (arteriosclerotic heart disease) Shortness of breath Expected: 03/19/2025, Expires: 03/19/2026 C-Reactive Protein, High Sensitivity Lab Routine ASHD (arteriosclerotic heart disease) Shortness of breath Expected: 03/19/2025, Expires: 03/19/2026 documented as of this encounter Visit Diagnoses Diagnosis ASHD (arteriosclerotic heart disease) Coronary atherosclerosis of unspecified type of vessel, [place] or graft History of coronary artery bypass graft Postsurgical aortocoronary bypass status History of PTCA Postsurgical percutaneous transluminal coronary angioplasty status Shortness of breath Type 2 diabetes mellitus without complication, with long-term current use of insulin Anxiety Anxiety state, unspecified Never smoked cigarettes BMI 35.0-35.9,adult Mixed hyperlipidemia documented in this encounter Additional Health Concerns Assessment Noted Time A fall risk assessment has been complete d for the patient 03/19/2025 11:40 AM EDT documented as of this encounter Care Teams Cigarette Examiner Relationship Specialty Start Date End Date Leeann Marshall, NARCOTICS AND/OR VICE DETECTIVE-VOLTAGE REGULATOR ASSEMBLER [address] [place] [address] PCP - General Internal Medicine 07/16/24 Riley Watts DO 703 [facility] 2, [address] [place] [address] Consulting Physician Cardiology 07/16/24 documented as of this encounter
--- OUTSIDE RECORDS SUMMARY | 2025-03-21 17:40 | XMS_ITS | Encounter Summary ---
Author Organization [facility] Address [id number] [address] [place] [address] Care Team Providers Care Glass Forming Engineer Name Role Phone Humble Marshallley DRESSING ROOM ATTENDANT-FIT MODEL Primary Care Provider [phone] Encounter Details Date Type Department Care Team (Late st Contact Info) Description 11/23/2023 Telephone [facility] [address] [facility] [address] [place] [address] Shobha Beltran, DRESSING ROOM ATTENDANT-FIT MODEL [address] [facility] [address] [place] [address] Social History Tobacco Use Types Packs/Day Years [...] 04/17/2023 How often do you attend chur ch or cheondoism services? More than 4 times per year 04/17/2023 Do you belong to any clubs o r organizations such as cheondoism groups, unions, fraternal or athletic groups, or [...] 04/17/2023 PHQ-2 Answer Date Recorded Total Score 9 10/15/2023 [facility] - Occupational Stress [...] Recorded Do you need help finding a [facility] career center and/or a training program? No 04/17/2023 Hunger Screening Answer Date Recorded Within the past 12 months we worried whether our food would run out before we got money to buy more. Never True 11/26/2023 Within the past 12 months th e food we bought just didn't last and we didn't have money to get more. Never True 11/26/2023 Purpose - Life Answer Date Recorded I have a purpose and direction in my life. Somew hat Agree 04/17/2023 Sex and Gender Information Value Date Recorded Sex Assigned at Not on file Legal Sex Male 11:45 AM EDT Gender Identity Not on file Sexual Orientation Not on file documented as of this encounter Miscellaneous Notes * Telephone Encounter - Cris Mayes - 11/23/2023 4:12 PM EDT LM regarding changes in humalog scale. He mentioned that he has experienced dizziness and SOB. Asking if it is from the sugars. He also stated in the message that blood sugars have been 170-180 range. I called patient back, NA. I left a message that these symptoms are usually not related to blood sugars of this value (170-180 range) and if it continues should report to ER. * Telephone Encounter - TERRY Doe - 11/23/2023 4:12 PM EDT Agree with above. documented in this encounter Plan of Treatment Upcoming Encounters Date Type Department Care Team (Late st Contact Info) Description 06/19/2025 10:20 AM EDT Office Visit [facility] Internal Medicine/Kayden Morse MD [address] [facility] [address] [place] [phone] Leeann Marshall APRN-CNP [address] [facility] [address] [place] [address] 07/22/2025 11:00 AM EST Office Visit [facility] Adult Endocrinology, A Department of [facility] [address] [facility] [address] [place] [address] Alea Mckenzie MD [address] [facility] [place] [address] 12/14/2025 3:15 PM EDT Office Visit [facility] [address] [place] [address] [place] [address] [place] [address] Nathan Blankenship MD [address] [place] [address] documented as of this encounter Goals Goal Patient Goal Type Associated Problems Recent Progress Patient-Stated? Author Return home General Yes Adeline Tran, RN Note: Evaluation of progress towards goal: Plan to return home with spouse. documented as of this encounter Visit Diagnoses Not on filedocumented in this encounter Additional Health Concerns Assessment Noted Time PHQ-9 Depression Total Score: 9 10/15/19 24 2:29 PM EST documented as of this encounter Care Teams Glass Forming Engineer Relationship Specialty Start Date End Date Leeann Marshall APRN-QI [address] [facility] [address] [place] [address] PCP - General Internal Medicine 11/15/23 documented as of this encounter
--- OUTSIDE RECORDS SUMMARY | 2025-03-21 17:40 | XMS_ITS | Encounter Summary ---
Author Organization [facility] Address [id number] [address] [place] [address] Care Team Providers Care Fleet Salesperson Name Role Phone Leeann Marshall MARKETING BUSINESS ANALYST-SET KEY DRIVER Primary Care Provider [phone] Encounter Details Date Type Department Care Team (Late st Contact Info) Description 10/10/2023 Telephone [facility] Internal Medicine - Family Medicine [address] [place] [address] Jeferson Harden CMA Social History Tobacco Use Types Packs/Day Years [...] often do you attend chur ch or baptist services? More than 4 times per year 04/17/2023 Do you belong to any clubs o r organizations such as druze groups, unions, fraternal or athletic groups, or [...] 04/17/2023 PHQ-2 Answer Date Recorded Total Score 3 09/20/2023 [facility] Occupat ional Health - Occupational Stress [...] Recorded Do you need help finding a [facility] career center and/or a training program? No 04/17/2023 Hunger Screening Answer Date Recorded Within the past 12 months we worried whether our food would run out before we got money to buy more. Never True 09/19/2023 Within the past 12 months th e food we bought just didn't last and we didn't have money to get more. Never True 09/19/2023 Purpose - Life Answer Date Recorded I have a purpose and direction in my life. Somew hat Agree 04/17/2023 Sex and Gender Information Value Date Recorded Sex Assigned at Not on file Legal Sex Male 11:45 AM EDT Gender Identity Not on file Sexual Orientation Not on file documented as of this encounter Miscellaneous Notes * Telephone Encounter - Jeferson Harden CMA - 10/10/2023 1:58 PM EST Viviana from [facility] called and would like you to follow pt care. Phone number is [phone] ext [phone] to let them know if you would. * Telephone Encounter - SANDI Antoine - 10/10/2023 1:58 PM EST I had already said that I would - Veronica * Telephone Encounter - Jeferson Harden CMA - 10/10/2023 1:58 PM EST Ok! I will call and let them know. documented in this encounter Plan of Treatment Upcoming Encounters Date Type Department Care Team (Late st Contact Info) Description 06/19/2025 10:20 AM EDT [facility]/Kayden Morse MD [address] [place] [phone] Leeann Marshall APRN-QI [address] [facility] [address] [place] [address] 07/22/2025 11:00 AM EST Office Visit [facility] Adult Endocrinology, A Department of [facility] [address] [place] [phone] Alea Mckenzie MD [address] [place] [address] 12/14/2025 3:15 PM EDT Office Visit [facility] [address] [place] [address] [place] [phone] Nathan Blankenship MD [address] [place] [address] documented as of this encounter Goals Goal Patient Goal Type Associated Problems Recent Progress Patient-Stated? Author Return home General Yes Adeline Tran, RN Note: Evaluation of progress towards goal: Plan to return home with spouse. documented as of this encounter Visit Diagnoses Not on filedocumented in this encounter Additional Health Concerns Assessment Noted Time PHQ-9 Depression Total Score: 3 09/20/19 24 9:03 PM EST documented as of this encounter Care Teams Fleet Salesperson Relationship Specialty Start Date End Date Leeann Marshall APRN-QI [address] [facility] [address] [place] [address] PCP - General Internal Medicine 11/15/23 documented as of this encounter
--- OUTSIDE RECORDS SUMMARY | 2025-03-21 17:40 | XMS_ITS | Encounter Summary ---
Author Organization [facility] Address [address] [place] [address] Care Team Providers Care Bail Agent Name Role Phone Tom Pires Primary Care Provider [phone] Tom Gottlieb MD Unavailable [phone] Tom Gottlieb MD Unavailable Source Comments In the event this information is protected by the Federal Confidentiality of Alcohol and Drug AbusePatient Records regulations: The Federal rules restrict any use of the information to criminally investigate or prosecute any alcohol or drug abuse patient.[facility] Encounter Details Date Type Department Care Team (Late st Contact Info) Description 07/25/2019 Abstract Dentistry [address] [place] [id number] Conversion, [facility] Social History Tobacco Use Types Packs/Day Years Used Date Smoking Tobacco: Never Smokeless Tobacco: Never Alcohol Use Standard Drinks/Week Comments Yes 2 (1 standard drink = 0.6 oz pur e alcohol) ocassionally Sex and Gender Information Value Date Recorded Sex Assigned at Male 02/14/2021 9:42 PM EDT Legal Sex Male 8:51 AM EST Gender Identity Male 02/14/2021 9:42 PM EDT Sexual Orientation Choose not to disclose 2020 9:42 PM EDT 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 Answer Date of Assessment Author No 08/26/2014 12:13 PM Alma Sams MA * Are you blind or do you have serious difficulty seeing, even when wearing glasses? Answer Date of Assessment Author No 08/26/2014 12:13 PM Alma Sams MA * Do you have serious difficulty walking or climbing stairs? Answer Date of Assessment Author No 08/26/2014 12:13 PM Alma Sams MA * Do you have difficulty dressing or bathing? Answer Date of Assessment Author No 08/26/2014 12:13 PM Alma Sams MA * Because of a physical, mental, or emotional condition, do you have difficulty doing errands alone such as visiting a doctor's office or shopping? Answer Date of Assessment Author No 08/26/2014 12:13 PM Alma Sams MA documented as of this encounter Mental Status * Because of a physical, mental, or emotional condition, do you have serious difficulty concentrating, remembering, or making decisions? Answer Entry Date Author No 08/26/2014 12:13 PM Alma Sams MA documented in this encounter Plan of Treatment Upcoming Encounters Date Type Department Care Team (Late st Contact Info) Description 05/14/2025 1:40 PM EDT Office Visit Neurology [address] [place] [address] [place] [address] [place] [address] memory concerns documented as of this encounter Procedures Procedure Name Priority Date/Time Associated Diagnosis Comments LIMITED ORAL EVALUATION - PROBLEM FOCUSED Routine 07/10/2017 12:00 AM EST documented in this encounter Visit Diagnoses Not on filedocumented in this encounter Care Teams Bail Agent Relationship Specialty Start Date End Date Tom Pires [address] [place] [address] PCP - General 12/12/00 Tom Gottlieb MD [address] [place] [address] Primary Staff Physician Cardiology 11/19/18 Tom Gottlieb MD [address] [place] [address] Primary Staff Physician Cardiology 11/19/18 documented as of this encounter
--- OUTSIDE RECORDS SUMMARY | 2025-03-21 17:40 | XMS_ITS | Encounter Summary ---
Author Organization [facility] Address [address] [place] [address] Care Team Providers Care Film Developing Machine Operator Name Role Phone Tom Pires Primary Care Provider Tom Gottlieb MD Unavailable Source Comments In the event this information is protected by the Federal Confidentiality of Alcohol and Drug AbusePatient Records regulations: The Federal rules restrict any use of the information to criminally investigate or prosecute any alcohol or drug abuse patient.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 No / Unsure 03/12/2020 11:10 AM EDT documented as of this encounter Functional Status [...] 05/14/2025 1:40 PM EDT Office Visit Neurology [address] [place] [address] [place] [address] [place] [address] memory concerns documented as of this encounter Visit Diagnoses Not on filedocumented in this encounter Care Teams Film Developing Machine Operator Relationship Specialty Start Date End Date Tom Pires [address] [place] [address] PCP - General 12/12/00 Tom Gottlieb MD [address] [place] [address] Primary Staff Physician Cardiology 11/19/18 documented as of this encounter
--- OUTSIDE RECORDS SUMMARY | 2025-03-21 17:40 | XMS_ITS | Encounter Summary ---
Author Organization [facility] Sys tem Address [facility] [id number] [address] [place] [address] Care Team Providers Care Floral Design Teacher Name Role Phone Leeann Marshall SHREDDED FILLER CUTTER OPERATOR-MARKETING COMMUNITY LIAISON Primary Care Provider Encounter Details Date Type Department Care Team (Late st Contact Info) Description 09/15/2023 Orders Only [facility] Internal Medicine - Family Medicine [address] [place] [address] Tom Pires, DO [address] [place] [address] Chronic diastolic CHF (congestive heart failure) ([facility]-H[facility]) (Primary Dx) Social History Tobacco Use Types Packs/Day Years Used Date Smoking Tobacco: Never Smokeless Tobacco: Never Alcohol Use Standard Drinks/Week Comments No 0 (1 standard drink = 0.6 oz [...] How often do you attend chur or shinto services? More than 4 times per year 04/17/2023 Do you belong to any clubs o r organizations such as pentecostal groups, unions, fraternal or athletic groups, or school groups? Yes 04/17/2023 How often do you attend meet ings of the clubs or organizations you belong to? Never 04/17/2023 Are you , , di vorced, , never , or living with a partner? 04/17/2023 AUDIT-C Answer Date Recorded Q1: How often do you have a drink containing alcohol? Never 04/17/2023 Q2: How many drinks containi ng alcohol do you have on a typical day when you are drinking? Patient does not drink Q3: How often do you have si x or more drinks on one occasion? Never 04/17/2023 Overall Financial Resource Strain (CARDIA) Answe r Date Recorded How hard is it for you to pa y for the very basics like food, housing, medical care, and heating? Not very hard 04/17/2023 PHQ-2 Answer Date Recorded Total Score 6 09/11/2023 [facility] Occupat ional Health - Occupational [...] Recorded Do you need help finding a [facility] and/or a training program? [...] on file documented as of this encounter Plan of Treatment Upcoming Encounters Date Type Department Care Team (Late st Contact Info) Description 06/19/2025 10:20 AM EDT [facility]/Kayden Morse MD [address] [facility] [address] [place] [address] Leeann Marshall, SONIDO-MARKETING COMMUNITY LIAISON [address] [facility] [address] [place] [address] 07/22/2025 11:00 AM EST Office Visit [facility] Adult Endocrinology, A Department of [facility] [address] [facility] [address] [place] [address] Alea Mckenzie MD [address] [facility] [place] [address] 12/14/2025 3:15 PM EDT Office Visit [facility] [address] [place] [address] [place] [address] [place] [address] Nathan Blankenship MD [address] [place], [place] [phone] documented as of this encounter Visit Diagnoses Diagnosis Chronic diastolic CHF (congestive heart failure) (CMS-HCC)- Primary documented in this encounter Additional Health Concerns Assessment Noted Time PHQ-9 Depression Total Score: 6 09/11/19 24 12:53 PM EST documented as of this encounter Care Teams Floral Design Teacher Relationship Specialty Start Date End Date Leeann Marshall APRN-QI [address] [facility] [address] [place] [address] PCP - General Internal Medicine 11/15/23 documented as of this encounter
--- OUTSIDE RECORDS SUMMARY | 2025-03-21 17:40 | XMS_ITS | Clinical Summary ---
Author Organization [facility] Address [address] [place] [address] Care Team Providers Care Optical Worker Name Role Phone No, Physician Primary Care Provider Unavailabl e Medications DULoxetine (CYMBALTA) 60 MG capsule Take 1 (one) capsule (60 mg total) by mouth daily . Active busPIRone (BUSPAR) 10 MG tablet Take 1 (one) tablet (10 mg total) by mouth 3 (three) times a day . Active LORazepam (ATIVAN) 0.5 MG tablet Take 1 (one) tablet (0.5 mg total) by mouth every 6 (six) hours as needed for anxiety Bid . Active traZODone (DESYREL) 100 MG tablet Take 1 (one) tablet (100 mg total) by mouth nightly as needed for sleep . Active amLODIPine (NORVASC) 10 MG tablet Take 1 (one) tablet (10 mg total) by mouth daily . Active labetaloL (NORMODYNE) 200 MG tablet Take 1 (one) tablet (200 mg total) by mouth 2 (two) times a day . Active chlorthalidone (HYGROTON) 25 MG tablet Take 1 (one) tablet (25 mg total) by mouth daily . Active insulin lispro (AdmeLOG,HumaLO G) 100 unit/mL injection Inject under the skin 3 (three) times a day before meals . Active Active Problems No known active problems Social History Tobacco Use Types Packs/Day Years Used Date Smoking Tobacco: Never Assessed Sex and Gender Information Value Date Recorded Sex Assigned at Not on file Legal Sex Male 6:58 PM EDT Gender Identity Not on file Sexual Orientation Not on file Last Filed Vital Signs Vital Sign Reading Time Taken Comments Blood Pressure 137/81 01/04/2023 7:28 PM EDT Pulse 88 01/04/2023 7:28 PM EDT Temperature 36.6 C (97.9 F) 01/04/2023 7:28 PM EDT Respiratory Rate 16 01/04/2023 7:28 PM EDT Oxygen Saturation 97% 01/04/2023 7:28 PM EDT Inhaled Oxygen Concentration - - Weight 110.3 kg (243 lb 1.6 oz) 01/04/2023 7:28 PM EDT Height 180.3 cm (5' 11 ) 01/04/2023 7:28 PM EDT Body Mass Index 33.91 01/04/2023 7:28 PM EDT Plan of Treatment Health Maintenance Due Date Last Done Comments CT Colonography 1957 Colonoscopy 1957 Colorectal Cancer Screening/Monitoring 1957 Fecal DNA 1957 Fecal occult blood test (FOBT,FIT) 1957 PSA Level 1957 Tetanus: Every 10yrs 1957 Medicare Wellness Visit 1960 Diabetic Eye Exam 1967 Diabetic Foot Exam 1967 Urine (micro)albumin/creatin ine ratio - Diabetes 1967 eGFR Diabetes 1967 Depression Screening/Follow- Up (PHQ-2/9) 1969 Hepatitis C Screening 1975 Flexible sigmoidoscopy 2007 Zoster Vaccines (1 of 2) 2007 Pneumococcal Vaccine: Age 50 + (2 of 2 - PCV) 09/14/2012 09/14/2011 Respiratory Syncytial Virus Immunization: Risk, 60-74 Risk, or 75+ (1 - Risk 60-74 years 1-dose series) 2017 Falls Risk Assessment 2022 A1C 02/16/2023 11/16/2022, 02, 04/01/2020 COVID-19 Vaccine ( season) 2024 Influenza Vaccine (#1) 2025 Insurance MEDICARE PART A & B PART A CLAIMS [address] [address] [place] [address] [facility] Care Teams Optical Worker Relationship Specialty Start Date End Date No, Physician [facility] PCP - General 07/20/17
--- OUTSIDE RECORDS SUMMARY | 2025-03-21 17:40 | XMS_ITS | Encounter Summary ---
Author Organization [facility] Address [address] [place] [address] Care Team Providers Care Soil Chemist Name Role Phone Tom Pires Primary Care Provider [phone] Tom Gottlieb MD Unavailable [phone] Tom Gottlieb MD Unavailable [phone] Source Comments In the event this information is protected by the Federal Confidentiality of Alcohol and Drug AbusePatient Records regulations: The Federal rules restrict any use of the information to criminally investigate or prosecute any alcohol or drug abuse patient.[facility] Encounter Details Date Type Department Care Team (Late st Contact Info) Description 07/10/2017 Abstract Dentistry [address] [id number] Conversion, [facility] Social History Tobacco Use Types [...] 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
--- OUTSIDE RECORDS SUMMARY | 2025-03-21 17:40 | XMS_ITS | Encounter Summary ---
Author Organization [facility] [email or web address] s tem Address [id number] [address] [place] [address] Care Team Providers Care Real Estate Administrative Assistant Name Role Phone Leeann Marshall PRODUCT/INDUSTRY CONSULTANT-CHILDREN'S AIDE Primary Care Provider Encounter Details Date Type Department Care Team (Late st Contact Info) Description 10/29/2023 Telephone [facility] - Family Medicine [address] [place] [address] Gisselle Alfaro, TAYLOR Social History Tobacco Use Types Packs/Day Years [...] often do you attend chur ch or mu-ism services? More than 4 times per year 04/17/2023 Do you belong to any clubs o r organizations such as methodist groups, unions, fraternal or athletic groups, or [...] Answer Date Recorded Total Score 9 10/15/2023 [facility] of Occupat ional Health - Occupational Stress [...] Recorded Do you need help finding a l ocal career center and/or a training program? No 04/17/2023 Hunger Screening Answer Date Recorded Within the past 12 months we worried whether our food would run out before we got money to buy more. Never True 10/15/2023 Within the past 12 months th e food we bought just didn't last and we didn't have money to get more. Never True 10/15/2023 Purpose - Life Answer Date Recorded I have a purpose and direction in my life. Somew hat Agree 04/17/2023 Sex and Gender Information Value Date Recorded Sex Assigned at Not on file Legal Sex Male 11:45 AM EDT Gender Identity Not on file Sexual Orientation Not on file documented as of this encounter Miscellaneous Notes * Telephone Encounter - Gisselle Alfaro CMA - 10/29/2023 5:09 PM EST Pt's called stated pt hasn't urinated since this morning wanted to if you would order a bladder scan , this is how he knows he's retaining urine * Telephone Encounter - SANDI Antoine - 10/29/2023 5:09 PM EST If he hasn't urinated since this am and needs a bladder scan the only way to get this done is to goto the ER. There is no outpatient way to order this, and then I wouldn't have the means to do anything about it. Also, when is his apt with the urologist? * Telephone Encounter - Gisselle Alfaro CMA - 10/29/2023 5:09 PM EST I called back read your note , they dont have a urologist apt yet , they go to talk to his dr that did his back surgery then go from there . But she did say that after she [place] [facility] [place] was able to go to the bathroom and has been going the rest of the day yesterday and this morning . * Telephone Encounter - SANDI Antoine - 10/29/2023 5:09 PM EST Would they like me to make an apt to a [facility] urologist, it sounds like he still needs one * Telephone Encounter - Gisselle Alfaro CMA - 10/29/2023 5:09 PM EST They are going to talk to the spine dr first , that is why he is having urinary issues documented in this encounter Plan of Treatment Upcoming Encounters Date Type Department Care Team (Late st Contact Info) Description 06/19/2025 10:20 AM EDT Office Visit [facility] Internal Medicine/Kayden Morse MD [address] [facility] [address] [place] [phone] Leeann Marshall APRN-CHILDREN'S AIDE [address] [facility] [address] [place] [address] 07/22/2025 11:00 AM EST Office Visit [facility] Adult Endocrinology, A Department of [facility] [address] [facility] [address] [place] [phone] Alea Mckenzie MD [address] [facility] [place] [address] 12/14/2025 3:15 PM EDT Office Visit [facility] [address] [place] [address] [place] [address] Nathan Blankenship MD [address] [place] [address] documented as of this encounter Goals Goal Patient Goal Type Associated Problems Recent Progress Patient-Stated? Author Return home General Yes Adeline Tran, RN Note: Evaluation of progress towards goal: Plan to return home with spouse. documented as of this encounter Visit Diagnoses Not on filedocumented in this encounter Additional Health Concerns Assessment Noted Time PHQ-9 Depression Total Score: 9 02/12/20 24 2:29 PM EST documented as of this encounter Care Teams Real Estate Administrative Assistant Relationship Specialty Start Date End Date Leeann Marshall APRN-QI [address] [facility] [address] [place] [address] PCP - General Internal Medicine 11/15/23 documented as of this encounter
--- OUTSIDE RECORDS SUMMARY | 2025-03-21 17:40 | XMS_ITS | Encounter Summary ---
Author Organization [facility] Address [address] [place] [address] Care Team Providers Care Med Aide Name Role Phone Tom Pires Primary Care Provider [phone] Tom Gottlieb MD Unavailable [phone] Tom Gottlieb MD Unavailable [phone] Source Comments In the event this information is protected by the Federal Confidentiality of Alcohol and Drug AbusePatient Records regulations: The Federal rules restrict any use of the information to criminally investigate or prosecute any alcohol or drug abuse patient.[facility] Encounter Details Date Type Department Care Team (Late st Contact Info) Description 07/31/2017 Get Medical Advice Cardiology [address] [place] [address] Tom Gottlieb MD [address] [place] [address] RE: Test Result Question Social History Tobacco Use Types Packs/Day Years [...] 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
--- OUTSIDE RECORDS SUMMARY | 2025-03-21 17:40 | XMS_ITS | Encounter Summary ---
Author Organization [employer] [facility] s tem Address [id number] [address] [place] [address] Care Team Providers Care Perinatal Educator Name Role Phone Humble Marshallley TRAINING ASSOCIATE-ELECTRIC TRUCK CRANE OPERATOR Primary Care Provider [phone] Encounter Details Date Type Department Care Team (Latest Contact Info) Description 03/17/2025 Travel Social History Tobacco Use Types Packs/Day Years [...] How often do you attend chur or restorationist services? More than 4 times per year 04/17/2023 Do you belong to any clubs o r organizations such as holiness groups, unions, fraternal or athletic groups, or [...] Answer Date Recorded Total Score 13 03/17/2025 [facility] of Occupat ional Health [...] Recorded Do you need help finding a [facility] career center and/or a training program? [...] Description 06/19/2025 10:20 AM EDT Office Visit [facility] Internal Medicine/Kayden Morse MD [address] [facility] [address] [place] [address] Leeann Marshall APRN-CNP [address] [facility] [address] [place] [address] 07/22/2025 11:00 AM EST [facility], A Department of [facility] [address] [facility] [address] [place] [address] Alea Mckenzie MD [address] [facility] [place] [address] 12/14/2025 3:15 PM EDT Office Visit [facility] [address] [facility] [place] [facility] [place] [address] Nathan Blankenship MD [address] [place] [address] documented as of this encounter Goals Goal [...] documented as of this encounter Care Teams Perinatal Educator Relationship Specialty Start Date End Date Leeann Marshall APRN-CNP [address] [facility] [address] [place] [address] PCP - General Internal Medicine 11/15/23 documented as of this encounter
--- OUTSIDE RECORDS SUMMARY | 2025-03-21 17:40 | XMS_ITS | Encounter Summary ---
Author Organization [facility] Address [address] [place] [address] Care Team Providers Care Cancer Registry Manager Name Role Phone Tom Pires Primary Care Provider [phone] Tom Gottlieb MD Unavailable [phone] Tom Gottlieb MD Unavailable [phone] Source Comments In the event this information is protected by the Federal Confidentiality of Alcohol and Drug AbusePatient Records regulations: The Federal rules restrict any use of the information to criminally investigate or prosecute any alcohol or drug abuse patient.[facility] Encounter Details Date Type Department Care Team (Late st Contact Info) Description 10/07/2019 Patient Msg Pre Anesthesia [address] [id number] Provider, [facility] Social History Tobacco Use Types Packs/Day Years [...] 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 Not on file Not [...] 05/14/2025 1:40 PM EDT Office Visit Neurology [address] [place] [address] [place] [address] [place] [address] memory concerns documented as of this encounter Visit Diagnoses Not on filedocumented in this encounter Care Teams Cancer Registry Manager Relationship Specialty Start Date End Date Tom Pires [address] [place] [address] PCP - General 12/12/00 Tom Gottlieb MD [address] [place] [address] Primary Staff Physician Cardiology 11/19/18 Tom Gottlieb MD [address] [place] [address] Primary Staff Physician Cardiology 11/19/18 documented as of this encounter
--- OUTSIDE RECORDS SUMMARY | 2025-03-21 17:40 | XMS_ITS | Encounter Summary ---
Author Organization [facility] [employer] [facility] tem Address [id number] [address] [place] [address] Care Team Providers Care Bar Catcher Name Role Phone MarshallHumbleLeeann ACTIVITIES MANAGER-ELECTRONICS INSTRUCTOR Primary Care Provider Encounter Details Date Type Department Care Team (Late st Contact Info) Description 10/10/2023 Telephone [facility] Internal Medicine - Family Medicine [address] [place] [address] Mely Call RN Social History Tobacco Use Types Packs/Day Years [...] any clubs o r organizations such as hinduism groups, unions, fraternal or athletic groups, or [...] Answer Date Recorded Total Score 3 09/20/2023 [facility] of Occupat ional Health - Occupational Stress [...] Do you need help finding a l al career center and/or a training program? No [...] encounter Miscellaneous Notes * Telephone Encounter - Mely Call RN - 10/10/2023 11:19 AM EST Transition of Care (*required) *Additional Questions/Concerns Requiring PCP Follow-Up: Patient was d/c from [facility] on 10/09. Patient has TCM visit scheduled for 10/15. This documentation is being used for Transition of Care purposes: Yes Goal: Patient will demonstrate a safe transition from hospital to home Diagnosis on Discharge: Laminectomy Cardiac cath Cardiac stents Discharge Specialty: Cardiac and Other *Name of Discharging Facility: [facility] Date of Facility Discharge: Admitted 09/20 to [facility] Discharged 09/26 to [facility] Discharged 10/09 to home with Date of Interactive Contact and Name of Staff Appraiser: 10/10 @ 1129 - spoke with patient and his , Jaci *Medication Review Completed: Pending provider review They were in car and could not review medications at that time. Medication Reconciliation Questions/Concerns: None - will review with provider *Follow Up Appointments with Providers: Primary: SANDI MARCUS - needs TCM Specialty: Specialty: Specialty: Review of Pending Lab/Diagnostic Tests and Plan for Completion: none Assessment and Support of Treatment Regimen Adherence and Medication Management: Patient states that he is doing ok. Still a little woozy, head is sort of fuzzy from everything going on. Pt states that he had back surgery at [facility] x 7 days, he was then d/c to [facility]. Pt then had chest pain and immediately went for heart cath and received 4 stent. States pain for both are under control, only taking Tylenol as needed. Patient is ambulating w/o walker, does have access to walker and shower chair if needed. Pt does state that he is sort of bloated and finds BM are alittle hard. [facility] recommended Miralax and they are going to start that today. Pt is urinating ok. states that she sets up patient's medications. Education Provided by ACN to Support Self-Management, Independent Living and ADLs: Educated patient on signs and symptoms of infection.. Reviewed heart healthy diet. Plans on home health PT and then progress to OP rehab. Instructed patient to call PCP for new or worsening symptoms. Instructed patient to call 911 for Chest pain, Severe Shortness of Breath, or Symptoms of CVA. CN introduced herself, explained role of care director, TCM services available, and ACN will be available to provide assistance for a minimum of 30 days post discharge. ACN contact information provided, encouraged to call for assistance as needed. Communication with Home Health Agencies and Other Services Utilized/Needed by the Patient: [facility] - waiting to hear from them. Plan is to have home health/PT then progress to OP PT. documented in this encounter Plan of Treatment Upcoming Encounters Date Type Department Care Team (Late st Contact Info) Description 06/19/2025 10:20 AM EDT Office Visit [facility] Internal Medicine/Kayden Morse MD [address] [facility] [address] [place] [phone] Leeann Marshall APRN-ELECTRONICS INSTRUCTOR [address] [facility] [address] [place] [address] 07/22/2025 11:00 AM EST Office Visit [facility], A Department of [facility] [address] [facility] [address] [place] [address] Alea Mckenzie MD [address] [facility] [place] [address] 12/14/2025 3:15 PM EDT Office Visit [facility] [address] [place] [address] [address] [place] [address] Nathan Blankenship MD [address] [place] [address] documented as of this encounter Goals Goal Patient Goal Type Associated Problems Recent Progress Patient-Stated? Author Return home General Yes Aedline Tran, RN Note: Evaluation of progress towards goal: Plan to return home with spouse. documented as of this encounter Visit Diagnoses Not on filedocumented in this encounter Additional Health Concerns Assessment Noted Time PHQ-9 Depression Total Score: 3 09/20/19 24 9:03 PM EST documented as of this encounter Care Teams Bar Catcher Relationship Specialty Start Date End Date Leeann Marshall APRN-QI [address] [facility] [address] [place] [address] PCP - General Internal Medicine 11/15/23 documented as of this encounter
--- OUTSIDE RECORDS SUMMARY | 2025-03-21 17:40 | XMS_ITS | Encounter Summary ---
Author Organization [facility] Hospital[facility] [employer] Sys tem Address [facility] [place]-[id number] [address] [facility] [place] [address] Care Team Providers Care Mucker Cofferdam Name Role Phone Leeann Marshall LASER TECHNICIAN-OPERATIONS VOCATIONAL INSTRUCTOR Primary Care Provider Reason for Visit * Reason Onset Date Comments Med Refill 12/27/2023 Encounter Details Date Type Department Care Team (Late st Contact Info) Description 12/27/2023 Refill [facility] [address] [place] [address] Alea Mckenzie MD [address] [place] [address] Type 2 diabetes mellitus with diabetic peripheral angiopathy without gangrene, with long-term current use of insulin ([facility]) (Primary Dx) Social History Tobacco Use Types [...] week 04/17/2023 How often do you attend [facility] or confucianist services? More than 4 times per year 04/17/2023 Do you belong to any clubs o r organizations such as gnosticist groups, unions, fraternal or athletic groups, or [...] 04/17/2023 PHQ-2 Answer Date Recorded Total Score 0 12/31/2023 [facility] of Occupat ional Health [...] Recorded Do you need help finding a [facility] career center and/or a training program? No 04/17/2023 Hunger Screening Answer Date Recorded Within the past 12 months we worried whether our food would run out before we got money to buy more. Never True 12/31/2023 Within the past 12 months th e food we bought just didn't last and we didn't have money to get more. Never True 12/31/2023 Purpose - Life Answer Date Recorded I have a purpose and direction in my life. Somew hat Agree 04/17/2023 Sex and Gender Information Value Date Recorded Sex Assigned at Not on file Legal Sex Male 11:45 AM EDT Gender Identity Not on file Sexual Orientation Not on file documented as of this encounter Miscellaneous Notes * Telephone Encounter - Eleonora Leblanc - 12/27/2023 1:02 PM EDT Pt stated he had stopped taking Ozempic when it was on back order and has not had it in some time. Should he get the 2mg dose or should he start back from starter dose? Please advise * Telephone Encounter - Alea Mckenzie MD - 12/27/2023 1:02 PM EDT Script for starting dose of 0.5 mg weekly for 4 weeks, then 1 mg weekly for 4 weeks, then 2 mg weekly have been sent documented in this encounter Plan of Treatment Upcoming Encounters Date Type Department Care Team (Late st Contact Info) Description 06/19/2025 10:20 AM EDT Office Visit [facility] Internal Medicine/Kayden Morse MD [address] [place] [phone] Leeann Marshall APRN-QI [address] [facility] [address] [place] [address] 07/22/2025 11:00 AM EST Office Visit [facility] Adult Endocrinology, A Department of [facility] [address] [facility] [address] [place] [address] Alea Mckenzie MD [address] [facility] [place] [address] 12/14/2025 3:15 PM EDT Office Visit [facility] [address] [place] [address] [place] [address] Nathan Blankenship MD [address] [place] [address] documented as of this encounter Goals Goal Patient Goal Type Associated Problems Recent Progress Patient-Stated? Author Return home General Yes Adeline Tran, RN Note: Evaluation of progress towards goal: Plan to return home with spouse. documented as of this encounter Visit Diagnoses Diagnosis Type 2 diabetes mellitus with diabetic peripheral angiopathy without gangrene, with long-term current use of insulin ([facility])- Primary documented in this encounter Additional Health Concerns Assessment Noted Time PHQ-9 Depression Total Score: 9 10/15/19 24 2:29 PM EST documented as of this encounter Care Teams Mucker Cofferdam Relationship Specialty Start Date End Date Leeann Marshall APRN-QI [address] [facility] [address] [place] [address] PCP - General Internal Medicine 11/15/23 documented as of this encounter
--- OUTSIDE RECORDS SUMMARY | 2025-03-21 17:40 | XMS_ITS | Encounter Summary ---
Author Organization [facility] Sys tem Address [id number] [address] [place] [address] Care Team Providers Care Member Certification Manager Name Role Phone Leeann Marshall APRN-PRIMARY CARE SALES REPRESENTATIVE Primary Care Provider Encounter Details Date Type Department Care Team (Late st Contact Info) Description 12/20/2023 Telephone [facility] Internal [facility]/Kayden Morse MD [address] [facility] [address] [place] [phone] Leeann Marshall APRN-CNP [address] [facility] [address] [place], [place] [phone] Social History Tobacco Use Types Packs/Day Years [...] often do you attend chur ch or shinto services? More than 4 times per year 04/17/2023 Do you belong to any clubs o r organizations such as yazidism groups, unions, fraternal or athletic groups, or [...] Answer Date Recorded Total Score 9 10/15/2023 [facility] of Occupat ional Health - Occupational [...] Recorded Do you need help finding a [facility] career center and/or a training program? No 04/17/2023 Hunger Screening Answer Date Recorded Within the past 12 months we worried whether our food would run out before we got money to buy more. Never True 12/11/2023 Within the past 12 months th e food we bought just didn't last and we didn't have money to get more. Never True 12/11/2023 Purpose - Life Answer Date Recorded I have a purpose and direction in my life. Somew hat Agree 04/17/2023 Sex and Gender Information Value Date Recorded Sex Assigned at Not on file Legal Sex Male 11:45 AM EDT Gender Identity Not on file Sexual Orientation Not on file documented as of this encounter Miscellaneous Notes * Telephone Encounter - Joyce Sethi - 12/20/2023 10:47 AM EDT Jaci (spouse) called, spoke with Neema reading over pt's AVS from appt , ask to remove Dr. Pires from patient Care Team. I took him off. documented in this encounter Plan of Treatment Upcoming Encounters Date Type Department Care Team (Late st Contact Info) Description 06/19/2025 10:20 AM EDT Office Visit [facility] Internal Medicine/Kayden Morse MD [address] [facility] [address] [place] [phone] Leeann Marshall APRN-PRIMARY CARE SALES REPRESENTATIVE [address] [facility] [address] [place] [address] 07/22/2025 11:00 AM EST [facility] Department of [facility] [address] [facility] [address] [place] [phone] Alea Mckenzie MD [address] [facility] [place] [address] 12/14/2025 3:15 PM EDT Office Visit [facility] [address] [place] [address] [address] [facility] [place] [address] Nathan Blankenship MD [address] [place] [address] documented as of this encounter Goals Goal [...] documented as of this encounter Care Teams Member Certification Manager Relationship Specialty Start Date End Date Leeann Marshall APRN-PRIMARY CARE SALES REPRESENTATIVE [address] [facility] [address] [place] [address] PCP - General Internal Medicine 11/15/23 documented as of this encounter
--- OUTSIDE RECORDS SUMMARY | 2025-03-21 17:40 | XMS_ITS | Encounter Summary ---
Author Organization [facility] Sys tem Address [facility]-[id number] [address] [place] [address] Care Team Providers Care Motor And Generator Assembler Name Role Phone Leeann Marshall CHIEF OPERATOR LOCK TENDER-FELT WASHING MACHINE TENDER Primary Care Provider Encounter Details Date Type Department Care Team (Late st Contact Info) Description 09/14/2023 Orders Only [facility] Internal Medicine - Family Medicine [address] [place] [address] Tom Pires, DO [address] [place] [address] Essential hypertension (Primary Dx) Social History Tobacco Use Types [...] often do you attend chur ch or synagogue services? More than 4 times per year 04/17/2023 Do you belong to any clubs o r organizations such as faith groups, unions, fraternal or athletic groups, or [...] Answer Date Recorded Total Score 6 09/11/2023 [facility] of Occupat ional Health - Occupational Stress [...] Recorded Do you need help finding a [facility] career center and/or a training program? No 04/17/2023 Hunger Screening Answer Date Recorded Within the past 12 months we worried whether our food would run out before we got money to buy more. Never True 09/11/2023 Within the past 12 months th e food we bought just didn't last and we didn't have money to get more. Never True 09/11/2023 Purpose - Life Answer Date Recorded I [...] Description 06/19/2025 10:20 AM EDT Office Visit [facility] Internal Medicine/Kayden Morse MD [address] [facility] [address] [place] [address] Leeann Marshall APRN-FELT WASHING MACHINE TENDER [address] [facility] [address] [place] [address] 07/22/2025 11:00 AM EST Office Visit [facility] Adult [facility]ology, A Department of [facility] [address] [facility] [address] [place] [phone] Alea Mckenzie MD [address] [facility] [place] [address] 12/14/2025 3:15 PM EDT Office Visit [facility] [address] [place] [address] [place] [address] Nathan Blankenship MD [address] [place] [address] documented as of this encounter Results * Magnesium (09/14/2023 3:51 PM EST) Magnesium 2.4 1.8 - 2.6 mg/dL 09/14/2023 10:12 PM EST [facility] Blood (PLASMA) 09/14/2023 3: 51 PM EST 09/14/2023 3:52 PM EST Tom Pires DO LAB BLOOD ORDERABLES Final Resul t [facility] [place] [facility] [address] [facility] [place] [address] * (ABNORMAL) Basic Metabolic Panel (09/14/2023 3:51 PM EST) Sodium 140 134 - 146 mmol/L 09/14/2023 10:12 PM [facility] Potassium, Bld 4.1 3.5 - 5.0 mmol/L 09/14/2023 10:12 PM [facility] Chloride 103 98 - 109 mmol/L 09/14/2023 10:12 PM [facility] CO2 26 22 - 32 mmol/L 09/14/2023 10:12 PM [facility] Anion gap 11 5 - 15 mmol/L 09/14/2023 10:12 PM [facility] BUN 29(H) 5 - 27 mg/dL 09/14/2023 10:12 PM [facility] Creatinine 0.98 0.60 - 1.30 mg/dL 09/14/2023 10:12 PM [facility] Comment:METHOD TRACEABLE TO IDMS STANDARD Glucose 182(H) 65 - 99 mg/dL 09/14/2023 10:12 PM [facility] Calcium 9.3 8.5 - 10.5 mg/dL 09/14/2023 10:12 PM [facility] eGFR (CKD-EPI)non-ra ce dependent 86 >59 ml/min/1.7 3sq.m 09/14/2023 10:12 PM [facility] Comment: Reported eGFR is based on the CKD-EPI 2020 equation that does not use a race coefficient. PLASMA 09/14/2023 3:51 PM EST 09/14/2023 3:52 PM EST us Tom Pires DO LAB BLOOD ORDERABLES Final Resul t [facility] [address] [facility] [place] [address] documented in this encounter Visit Diagnoses Diagnosis Essential hypertension- Primary Unspecified essential hypertension documented in this encounter Additional Health Concerns Assessment Noted Time PHQ-9 Depression Total Score: 6 09/11/19 24 12:53 PM EST documented as of this encounter Care Teams Motor And Generator Assembler Relationship Specialty Start Date End Date Leeann Marshall, SONIDO-FELT WASHING MACHINE TENDER [address] [facility] [address] [place] [address] PCP - General Internal Medicine 11/15/23 documented as of this encounter
--- OUTSIDE RECORDS SUMMARY | 2025-03-21 17:40 | XMS_ITS | Encounter Summary ---
Author Organization [facility] Address [address] [place] [address] Care Team Providers Care Environmental Department Manager Name Role Phone Tom Pires Primary Care Provider Tom Gottlieb MD Unavailable [phone] Tom Gottlieb MD Unavailable [phone] Source Comments In the event this information is protected by the Federal Confidentiality of Alcohol and Drug AbusePatient Records regulations: The Federal rules restrict any use of the information to criminally investigate or prosecute any alcohol or drug abuse patient.[facility] Encounter Details Date Type Department Care Team (Late st Contact Info) Description 10/28/2019 Patient Msg Pre Anesthesia [address] [place] [phone] Provider, Ccf pacc Social History Tobacco Use Types Packs/Day Years [...] 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 Not on file Not [...] 05/14/2025 1:40 PM EDT Office Visit Neurology [address] [place] [address] [place] [address] [place] [address] memory concerns documented as of this encounter Visit Diagnoses Not on filedocumented in this encounter Care Teams Environmental Department Manager Relationship Specialty Start Date End Date Tom Pires [address] [place] [address] PCP - General 12/12/00 Tom Gottlieb MD [address] [place] [address] Primary Staff Physician Cardiology 11/19/18 Tom Gottlieb MD [address] [place] [address] Primary Staff Physician Cardiology 11/19/18 documented as of this encounter
[2025-03-21 17:41] VITALS: BP 147/78; PULSE 81; TEMP 36.7; O2SAT 96; BMI 34.9
--- OUTSIDE RECORDS SUMMARY | 2025-03-21 17:41 | XMS_ITS | Encounter Summary ---
Author Organization [facility] Address [address] [place] [address] Care Team Providers Care Inspector Raw Quartz Name Role Phone Tom Pires Primary Care Provider [phone] Tom Gottlieb MD Unavailable Source Comments In the event this information is protected by the Federal Confidentiality of Alcohol and Drug AbusePatient Records regulations: The Federal rules restrict any use of the information to criminally investigate or prosecute any alcohol or drug abuse patient.[facility] Encounter Details Date Type Department Care Team (Late st Contact Info) Description 04/23/2020 Patient Msg Radiology [address] [place], [place] [phone] Provider, Ccf Questionnaire Submission Social History Tobacco Use Types Packs/Day Years Used Date Smoking Tobacco: Never Smokeless Tobacco: Never Alcohol Use Standard Drinks/Week Comments Not Currently 2 (1 standard drink = 0.6 oz pur e alcohol) Sex and Gender Information Value Date Recorded Sex Assigned at Male 02/14/2021 9:42 PM EDT Legal Sex Male 8:51 AM EST Gender Identity Male 02/14/2021 9:42 PM EDT Sexual Orientation Choose not to disclose 2020 9:42 PM EDT 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 No / Unsure 04/26/2020 3:42 PM EDT documented as of this encounter Functional Status * Are you deaf or do you have serious difficulty hearing? Answer Date of Assessment Author No 04/13/2020 3:11 PM EDT Temitope Washburn APRN.COLOR BLENDER * Are you blind or do you have serious difficulty seeing, even when wearing glasses? Answer Date of Assessment Author No 04/13/2020 3:11 PM EDT Temitope Washburn APRN.COLOR BLENDER * Do you have serious difficulty walking or climbing stairs? Answer Date of Assessment Author No 04/13/2020 3:11 PM EDT Temitope Washburn APRN.COLOR BLENDER * Do you have difficulty dressing or bathing? Answer Date of Assessment Author No 04/13/2020 3:11 PM EDT Temitope Washburn APRN.COLOR BLENDER * Because of a physical, mental, or emotional condition, do you have difficulty doing errands alone such as visiting a doctor's office or shopping? Answer Date of Assessment Author No 04/13/2020 3:11 PM EDT Temitope Washburn APRN.COLOR BLENDER documented as of this encounter Mental Status * Because of a physical, mental, or emotional condition, do you have serious difficulty concentrating, remembering, or making decisions? Answer Entry Date Author No 04/13/2020 3:11 PM EDT Temitope Washburn APRN.COLOR BLENDER documented in this encounter Plan of Treatment Upcoming Encounters Date Type Department Care Team (Late st Contact Info) Description 05/14/2025 1:40 PM EDT Office Visit Neurology [address] [place] [address] [place] [address] [place], [place] [phone] memory concerns documented as of this encounter Visit Diagnoses Not on filedocumented in this encounter Care Teams Inspector Raw Quartz Relationship Specialty Start Date End Date Tom Pires [address] [place] [address] PCP - General 12/12/00 Tom Gottlieb MD [address] [place] [address] Primary Staff Physician Cardiology 11/19/18 documented as of this encounter
--- OUTSIDE RECORDS SUMMARY | 2025-03-21 17:41 | XMS_ITS | Encounter Summary ---
Author Organization [facility] [employer] Sys [employer] Address [facility] [id number] [address] [place] [address] Care Team Providers Care Barrel Driller Name Role Phone Leeann Marshall COUNTY SURVEYOR-CRITICAL CARE NURSE Primary Care Provider [phone] Encounter Details Date Type Department Care Team (Late st Contact Info) Description 05/12/2022 [facility] - Family Medicine [address] [place] [address] Joyce Jeong MA Social History Tobacco Use Types Packs/Day Years Used Date Smoking Tobacco: Never Smokeless Tobacco: Never Alcohol Use Standard Drinks/Week Comments No 0 (1 standard drink = 0.6 oz pur e alcohol) Childcare Answer Date Recorded Childcare Unknown 02/12/2019 Employment Answer Date Recorded Employment Unknown 02/12/2019 Purpose - Life Answer Date Recorded Purpose and direction in life Unknown Sex and Gender Information Value Date Recorded Sex Assigned at Not on file Legal Sex Male 11:45 AM EDT Gender Identity Not on file Sexual Orientation Not on file documented as of this encounter Miscellaneous Notes * Telephone Encounter - Joyce Jeong MA - 05/12/2022 12:35 PM EDT Pt called and said his blood sugars have been running high [phone] and wants to know if he needs toadjust his insulin or what he can do to get his sugar down? * Telephone Encounter - Tom Pires DO - 05/12/2022 12:35 PM EDT I need to know what time of day the blood sugars are running this high. Are they being taken after eating? Is he taking his insulin Toujeo 50 units daily, metformin twice a day, and Bydureon every week? * Telephone Encounter - Joyce Jeong MA - 05/12/2022 12:35 PM EDT Left vm to call back. * Telephone Encounter - Joyce Jeong MA - 05/12/2022 12:35 PM EDT Tried calling patient again, there was no answer and the voicemail box was full so I was unable to leave a message. * Telephone Encounter - Joyce Jeong MA - 05/12/2022 12:35 PM EDT I finally spoke with the patient. He said he his blood sugars are running high in the AM, when he is fasting, as this is when he checks it. He is taking his Toujeo and Metformin, but he said he is out of his Bydureon and last took it a week ago. He said he is also having a lot of anxiety and brain fog. * Telephone Encounter - Tom Pires DO - 05/12/2022 12:35 PM EDT So his options include: Restarting the Bydureon Increasing the Toujeo Make sure he is following his low carb diet closely * Telephone Encounter - Joyce Jeong MA - 05/12/2022 12:35 PM EDT I spoke with patient. He said he is ok with increasing his insulin, he needs more Bydureon sent in,and he is watching his carbs closely. He said his sugar was almost 500 this morning. He also wantedme to mention to you that he would like to start working again. * Telephone Encounter - Tom Pires DO - 05/12/2022 12:35 PM EDT Have him increase his Toujeo to 60 units daily. I sent his Bydureon refill to [facility] * Telephone Encounter - Joyce Jeong MA - 05/12/2022 12:35 PM EDT Left on voicemail. documented in this encounter Plan of Treatment Upcoming Encounters Date Type Department Care Team (Late st Contact Info) Description 06/19/2025 10:20 AM EDT Office Visit [facility] Internal Medicine/Kayden Morse MD [address] [facility] [address] [place] [phone] Leeann Marshall APRN-CRITICAL CARE NURSE [address] [facility] [address] [place] [address] 07/22/2025 11:00 AM EST Office Visit [facility] Adult Endocrinology, A Department of [facility] [address] [facility] [address] [place] [phone] Alea Mckenzie MD [address] [place] [address] 12/14/2025 3:15 PM EDT Office Visit [facility] [address] [place] [address] [place] [address] [place] [phone] Nathan Blankenship MD [facility] [place], [place] [phone] documented as of this encounter Visit Diagnoses Not on filedocumented in this encounter Care Teams Barrel Driller Relationship Specialty Start Date End Date Leeann Marshall APRN-CRITICAL CARE NURSE [address] [place] [address] [place] [address] PCP - General Internal Medicine 11/15/23 documented as of this encounter
--- OUTSIDE RECORDS SUMMARY | 2025-03-21 17:41 | XMS_ITS ---
Author Organization [facility] tem Address [facility]-[id number] [address] [place] [address] Care Team Providers Care Cosmetic Sales Advisor Name Role Phone Leeann Marshall CISCO ENGINEER-ACCOUNTS ADMINISTRATOR Primary Care Provider [phone] Care Navigation Status:Enrolled (Enrolling) Start date:10/10/2023 Enrollment reason:Identified using hospital discharge data Overview This episode is used to track Care Navigation outreach tasks and outcomes. Case Team Name Relationship Phone Mely Call RN(Responsible Staff) Registered Nurse Continued Care and Services Coordination
--- OUTSIDE RECORDS SUMMARY | 2025-03-21 17:41 | XMS_ITS | Encounter Summary ---
Author Organization [facility] Address [id number] [address] [place] [address] Care Team Providers Care Reconciliation Analyst Name Role Phone Leeann Marshall NANOTECHNICIAN-SENIOR PRINCIPAL PROCESS ENGINEER Primary Care Provider [phone] Encounter Details Date Type Department Care Team (Late st Contact Info) Description 07/18/2023 Orders Only [facility] Internal [facility] - Family Medicine [address] [place] [address] Tom Pires, DO [address] [place] [address] Social History Tobacco Use Types Packs/Day Years [...] often do you attend chur ch or catholic services? More than 4 times per year 04/17/2023 Do you belong to any clubs o r organizations such as mormon groups, unions, fraternal or athletic groups, or [...] PHQ-2 Answer Date Recorded Total Score 0 07/18/2023 [facility] - Occupational Stress [...] you need help finding a [facility] career center and/or a training program? No 04/17/2023 Purpose - Life Answer Date Recorded I [...] 06/19/2025 10:20 AM EDT Office Visit [facility]/Kayden Morse MD [address] [place] [phone] Leeann Marshall APRN-SENIOR PRINCIPAL PROCESS ENGINEER [address] [facility] [address] [place] [address] 07/22/2025 11:00 AM EST Office Visit [facility] Adult Endocrinology, A Department of [facility] [address] [facility] [address] [place] [phone] Alea Mckenzie MD [address] [facility] [place] [address] 12/14/2025 3:15 PM EDT Office Visit [facility] [address] [place] [address] Nathan Blankenship MD [address] [place] [address] documented as of this encounter Procedures Procedure Name Priority Date/Time Associated Diagnosis Comments EXTERNAL ENVIRONMENTAL PLANNER, CGM SYS Routine 07/18/2023 5:52 PM EST documented in this encounter Results * EXTERNAL ENVIRONMENTAL PLANNER, CGM SYS (07/18/2023 5:52 PM EST) Tom [facility] Final Result MANUALLY TRANSCRIBED RESULTS documented in this encounter Visit Diagnoses Not on filedocumented in this encounter Additional Health Concerns Assessment Noted Time PHQ-9 Depression Total Score: 0 07/18/20 23 1:57 PM EST documented as of this encounter Care Teams Reconciliation Analyst Relationship Specialty Start Date End Date Leeann Marshall APRN-QI [address] [facility] [address] [place] [address] PCP - General Internal Medicine 11/15/23 documented as of this encounter
--- OUTSIDE RECORDS SUMMARY | 2025-03-21 17:41 | XMS_ITS | Encounter Summary ---
Author Organization [facility] Address [address] [place] [address] Care Team Providers Care Spreader Box Operator Name Role Phone Tom Pires Primary Care Provider [phone] Tom Gottlieb MD Unavailable [phone] Source Comments In the event this information is protected by the Federal Confidentiality of Alcohol and Drug AbusePatient Records regulations: The Federal rules restrict any use of the information to criminally investigate or prosecute any alcohol or drug abuse patient.[facility] Encounter Details Date Type Department Care Team (Late st Contact Info) Description 04/16/2021 Get Medical Advice Neurology [address] [place] [address] [place] [address] [place] [address] RE: Non-Urgent Medical Question Social History Tobacco Use Types Packs/Day Years Used Date Smoking Tobacco: Never Smokeless Tobacco: Never Alcohol Use Standard Drinks/Week Comments Not Currently 2 (1 standard drink = 0.6 oz pur e alcohol) Area Deprivation Index Answer Date Rodney rded National Score (1-100), lower number is lower ri sk Not on file 08/09/2020 State Score (1-10), lower number is lower risk N ot on file 08/09/2020 Data from: https://www.neighborhoodatlas.medicine.[facility]/. 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 No / Unsure 03/23/2021 8:28 AM EDT documented as of this encounter Functional Status * Are you deaf or do you have serious difficulty hearing? Answer Date of Assessment Author No 04/13/2020 3:11 PM EDT Temitope Washburn APRN.BRIDAL STYLIST SALES CONSULTANT * Are you blind or do you have serious difficulty seeing, even when wearing glasses? Answer Date of Assessment Author No 04/13/2020 3:11 PM EDT Temitope Washburn APRN.BRIDAL STYLIST SALES CONSULTANT * Do you have serious difficulty walking or climbing stairs? Answer Date of Assessment Author No 04/13/2020 3:11 PM EDT Temitope Washburn APRN.BRIDAL STYLIST SALES CONSULTANT * Do you have difficulty dressing or bathing? Answer Date of Assessment Author No 04/13/2020 3:11 PM EDT Temitope Washburn APRN.BRIDAL STYLIST SALES CONSULTANT * Because of a physical, mental, or emotional condition, do you have difficulty doing errands alone such as visiting a doctor's office or shopping? Answer Date of Assessment Author No 04/13/2020 3:11 PM EDT Temitope Washburn APRN.BRIDAL STYLIST SALES CONSULTANT documented as of this encounter Mental Status * Because of a physical, mental, or emotional condition, do you have serious difficulty concentrating, remembering, or making decisions? Answer Entry Date Author No 04/13/2020 3:11 PM EDT Temitope Washburn APRN.BRIDAL STYLIST SALES CONSULTANT documented in this encounter Plan of Treatment Upcoming Encounters Date Type Department Care Team (Late st Contact Info) Description 05/14/2025 1:40 PM EDT Office Visit Neurology [address] [place] [address] [place] [address] [place] [address] memory concerns documented as of this encounter Visit Diagnoses Not on filedocumented in this encounter Care Teams Spreader Box Operator Relationship Specialty Start Date End Date Tom Pires [address] [place] [address] PCP - General 12/12/00 Tom Gottlieb MD [address] [place] [address] Primary Staff Physician Cardiology 11/19/18 documented as of this encounter
--- OUTSIDE RECORDS SUMMARY | 2025-03-21 17:41 | XMS_ITS | Encounter Summary ---
Author Organization [facility] Address [address] [place] [address] Care Team Providers Care Emergency Preparedness Coordinator Name Role Phone Tom Pires Primary Care Provider [phone] Tom Gottlieb MD Unavailable Source Comments In the event this information is protected by the Federal Confidentiality of Alcohol and Drug AbusePatient Records regulations: The Federal rules restrict any use of the information to criminally investigate or prosecute any alcohol or drug abuse patient.[facility] Encounter Details Date Type Department Care Team (Late st Contact Info) Description 05/12/2020 Get Medical Advice Neurology [address] [place] [address] [place] [address] [place] [address] RE: Test Result Question Social History Tobacco [...] 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 No / Unsure 05/07/2020 9:16 AM EDT documented as of this encounter Functional Status * Are you deaf or do you have serious difficulty hearing? Answer Date of Assessment Author No 04/13/2020 3:11 PM EDT Temitope Washburn APRN.TECHNICAL SPECIALIST * Are you blind or do you have serious difficulty seeing, even when wearing glasses? Answer Date of Assessment Author No 04/13/2020 3:11 PM EDT Temitope Washburn APRN.TECHNICAL SPECIALIST * Do you have serious difficulty walking or climbing stairs? Answer Date of Assessment Author No 04/13/2020 3:11 PM EDT Temitope Washburn APRN.TECHNICAL SPECIALIST * Do you have difficulty dressing or bathing? Answer Date of Assessment Author No 04/13/2020 3:11 PM EDT Temitope Washburn APRN.TECHNICAL SPECIALIST * Because of a physical, mental, or emotional condition, do you have difficulty doing errands alone such as visiting a doctor's office or shopping? Answer Date of Assessment Author No 04/13/2020 3:11 PM EDT Temitope Washburn APRN.TECHNICAL SPECIALIST documented as of this encounter Mental Status * Because of a physical, mental, or emotional condition, do you have serious difficulty concentrating, remembering, or making decisions? Answer Entry Date Author No 04/13/2020 3:11 PM EDT Temitope Washburn APRN.TECHNICAL SPECIALIST documented in this encounter Miscellaneous Notes * Telephone Encounter - Lynette Myers (Darrion) - 05/18/2020 8:55 AM EDT Neuropsychiatric Testing results are on 's desk for review Will get back to you. documented in this encounter Plan of Treatment Upcoming Encounters Date Type Department Care Team (Late st Contact Info) Description 05/14/2025 1:40 PM EDT Office Visit Neurology [address] [place] [address] [place] [address] [place] [address] memory concerns documented as of this encounter Visit Diagnoses Not on filedocumented in this encounter Care Teams Emergency Preparedness Coordinator Relationship Specialty Start Date End Date Tom Pires [address] [place] [address] PCP - General 12/12/00 Tom Gottlieb MD [address] [place] [address] Primary Staff Physician Cardiology 11/19/18 documented as of this encounter
--- OUTSIDE RECORDS SUMMARY | 2025-03-21 17:41 | XMS_ITS | Clinical Summary ---
Author Organization [facility] Address [address] [place] [address] Care Team Providers Care Range Master Name Role Phone Tom Pires Primary Care Provider [phone] Tom Gottlieb MD Unavailable Allergies No known active allergies Medications * This document contains information received from the source organization and may not represent a complete record from that organization. VRAYLAR 6 mg cap Take 1.5 mg by mouth. 04/09/20 19 Active chlorthalidone (HYGROTON) 25 mg tablet chlorthalidone 25 mg tablet Active hydrOXYzine pamoate (VISTARIL) 25 mg capsule Take 50 mg by mouth at bedtime as needed. 01/29/20 19 Active lamoTRIgine (LAMICTAL) 200 mg tablet TAKE 1 TABLET BY MOUTH EVERYDAY AT BEDTIME 1 03/12/20 19 Active VIIBRYD 40 mg TAKE 1 TABLET BY MOUTH EVERY DAY IN THE MORNING 1 03/31/20 19 Active cloNIDine HCl (CATAPRES) 0.1 mg tablet clonidine HCl 0.1 mg tablet TAKE 1 TABLET BY MOUTH THREE TIMES A DAY Active amLODIPine (NORVASC) 10 mg tablet Take 10 mg by mouth. Active metFORMIN (GLUCOPHAGE) 500 mg tablet Take 500 mg by mouth twice daily with meals. Active busPIRone (BUSPAR) 10 mg tablet Take 20 mg by mouth three times daily. Active semaglutide (OZEMPIC SUBCUTANEOUS) Inject 1 Dose subcutaneously one time a week. 50 mg weekly Active labetalol (TRANDATE) 200 mg tablet Take 200 mg by mouth twice daily. Active MEDICATION, NON-DATABASE supplements Activ e mupirocin (BACTROBAN) 2 % ointmentIndication s:Pre-op exam,Primary osteoarthritis of right knee,Essential hypertension,S/P CABG (coronary artery bypass graft),Unspecified sleep apnea,Prediabetes, Atherosclerosis of seminole coronary artery of seminole heart without angina pectoris,Vocal cord granuloma,Hyperlip idemia, unspecified hyperlipidemia type,Esophageal stricture Apply 0.5 inch with cotton swab (Q-tip) to each nostril in the morning and evening for 5 days prior to and including day of surgery. 22 g 04/01/20 20 Active aspirin, enteric coated (ECOTRIN LOW STRENGTH) 81 mg EC tablet Take 1 tablet by mouth twice daily. 60 tablet 0 1:34 PM EDT 04/13/[address] (PROTONIX) 20 mg tablet Take 1 tablet by mouth once daily for 14 days. 14 tablet 0 1:34 PM EDT 04/11/20 20 Active Active Problems Problem Noted Date Diagnosed Date Memory loss 03/23/2021 Cognitive communication deficit 03/23/2021 MCI (mild cognitive impairment) 02/25/2021 Obesity, Class II, BMI 35-39.9 04/13/2020 S/P total knee arthroplasty, right 04/12/2020 Cataract, nuclear sclerotic senile, right 2017 Overview (08/14/2018): Added automatically from request for surgery [id number] Dyspnea, unspecified 08/01/2016 Skin tag 01/29/2015 Rotator cuff injury 02/14/2013 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 Assessment & Plan (04/01/2020 4:05 PM EDT): Assessment: had in 2012, no further episodes Chronic cough 11/07/2012 Esophageal stricture 11/07/2012 Assessment & Plan (04/01/2020 4:05 PM EDT): Assessment: had in 2012,no further episodes Heartburn symptom 11/07/2012 Hypertension 06/28/2011 Assessment & Plan (04/01/2020 4:08 PM EDT): Assessment: on med,moniotred per PCP BP 143/74 pulse 64 Hyperlipidemia 06/28/2011 Assessment & Plan (04/01/2020 4:07 PM EDT): Assessment: no meds currently ,stable S/P CABG (coronary artery bypass graft) 06/28/20 11 Assessment & Plan (04/01/2020 4:07 PM EDT): Assessment: had in 2008,monitored per PCP Prediabetes 06/28/2011 Assessment & Plan (04/01/2020 4:07 PM EDT): Assessment: on oral med, monitored per PCP last glucose result in epic of 11/23/19 (112) Depression 06/28/2011 Assessment & Plan (04/01/2020 4:06 PM EDT): Assessment: sees Psychiatrist will have Evaluation Pre op with Dr. Leeann Darling 04/02/20 for surgery Vitamin D deficiency 06/28/2011 Fatigue 06/28/2011 Family history of ischemic heart disease 011 Other states following surgery of eye and adnexa 05/05/2011 Pseudophakia 05/05/2011 Senile cataract, unspecified 05/05/2011 Coronary atherosclerosis 10/21/2008 Assessment & Plan (04/01/2020 4:08 PM EDT): Assessment: monitored per PCP Unspecified sleep apnea 10/04/2008 Overview (04/01/2020): s/p uvula surgery Assessment & Plan (04/01/2020 4:05 PM EDT): Assessment: uses CPAP Senile nuclear sclerosis 07/09/2006 Anxiety state 07/09/2006 Primary osteoarthritis of right knee Assessment & Plan (04/01/2020 4:04 PM EDT): Assessment: will have surgery Resolved Problems Problem Noted Date Diagnosed Date Resolved Date PONV (postoperative nausea and vomiting) 04/12/2020 04/13/2020 Fluid overload 10/10/2008 06/28/2011 Overview (10/10/2008): 10/10/2008 Gentle diuresis. Hypotension, unspecified 10/10/2008 Overview (10/10/2008): 10/10/2008 Wean levo for maps 65-85. Type II or unspecified type diabetes mellitus without mention of complication, not stated as uncontrolled 07/09/2006 06/28/2011 Mixed hyperlipidemia 07/09/2006 011 Immunizations Immunization Administration Dates Next Due pneumococcal polysaccharide (PPV23) vaccine, 23 valent (PNEUMOVAX 23) 09/14/2011 Family History Medical History Relation Comments Heart Father [place] age 56 Diabetes Mother Stroke Mother No Ocular Disease Other Relation Status Comments Father (Age 82) CHF Mother (Age 76) Other Social History Tobacco Use Types Packs/Day Years Used Date Smoking Tobacco: Never Smokeless Tobacco: Never Tobacco Cessation:Counseling Given: Yes Alcohol Use Standard Drinks/Week Comments Not Currently 2 (1 standard drink = 0.6 oz pur e alcohol) Area Deprivation Index Answer Date Rodney rded National Score (1-100), lower number is lower ri sk 65 11/17/2024 State Score (1-10), lower number is lower risk 5 11/17/2024 Data from: https://www.neighborhoodatlas.medicine.[facility].edu/. 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 Not on file Not on file Last Filed Vital Signs Vital Sign Reading Time Taken Comments Blood Pressure 144/78 06/23/2020 11:55 AM EDT Pulse 74 06/23/2020 11:55 AM EDT Temperature 36.7 C (98.1 F) 04/13/2020 12:18 PM EDT Respiratory Rate 18 04/13/2020 12:18 PM EDT Oxygen Saturation 95% 04/13/2020 12:18 PM EDT Inhaled Oxygen Concentration - - Weight 122.9 kg (271 lb) 06/09/2020 11:27 AM EDT Height 180.3 cm (5' 11 ) 06/09/2020 11:27 AM EDT Body Mass Index 37.8 06/09/2020 11:27 AM EDT Plan of Treatment Upcoming Encounters Date Type Department Care Team (Late st Contact Info) Description 05/14/2025 1:40 PM EDT Office Visit Neurology [address] [place] [address] [place] [address] [place] [address] memory concerns Health Maintenance Due Date Last Done Comments Anxiety Screening 1975 Depression Screening 1975 Hepatitis C Screening 1975 DTaP,Tdap,Td Vaccine (1 - Tdap) 1976 CT Colonography 2002 Cologuard (FIT-DNA) 2002 Colonoscopy 2002 Colorectal Cancer Screening 2002 Fecal Occult Blood 2002 Prostate Cancer Screening Discussion 2002 Sigmoidoscopy 2002 Shingrix Vaccine (1 of 2) 2007 Pneumococcal Vaccine: 50+ (2 of 2 - PCV) 09/14/2012 09/14/2011 Diabetes Screening 04/13/2023 04/13/2020, 0 04/01/2020, 04/01/2020, Additional history exists Lipid Screening 11/10/2023 11/09/2018, 09/05, 05/05/2011, Additional history exists Covid-19 Vaccine ( - 2023-2 5 season) 2024 Advance Directive Discussion 09/03/2024 Influenza Vaccine (#1) 2025 RSV Vaccine (1 - 1-dose 75+ series) 2032 Medical Devices Implanted Type Area Church Business Administrator Device Identifier Shelf Expiration Date Model / Serial / Lot Bone Cement Palacos Radiopaque W/Gentamicin - [id number] Implanted:Qty : 2 on 09/11/2011 at [facility] Cement / Putty Left: Bone - Knee [employer] 03/02/2015 [id number] / / [id number] Description:bone cement with 0.5g gentamycin Cement Simplex P Bone Radiopaque Full Dose Sterile - [id number] Implanted:Qty : 1 on 04/12/2020 at [facility] Cement / Putty Right: Bone - Knee [employer] 12/31/2021 [id number] / / [id number] Cement Simplex P Bone Radiopaque Full Dose Sterile - [id number] Implanted:Qty : 1 on 04/12/2020 at [facility] Cement / Putty Right: Bone - Knee [employer] 12/31/2021 [id number] / / [id number] Ksv-Ya-J-Kind Implant - [id number] Implanted:Qty : 1 on 09/11/2011 at [facility] Implant Left: Bone - Knee [employer] 03/02/2021 / / [id number] Description:Nex Gen Femoral Compnent Hfg-Us-P-Kind Implant - [id number] Implanted:Qty : 1 on 09/11/2011 at [facility] Implant Left: Bone - Knee [employer] 06/02/2021 / / [id number] Description:Nex Gen Tibial c omponent Zkx-Qy-Z-Kind Implant - [id number] Implanted:Qty : 1 on 09/11/2011 at [facility] Implant Left: Bone - Knee [employer] 06/11/2018 [id number] / / [id number] Description:CR ARTICULAR OSWALDO FACE REGULAR CONSTRAINT Persona Imp Knee Surf [facility] R 10 8-11gh [id number] Implanted:Qty : 1 on 04/12/2020 at [facility] Implant Right: Bone - Knee [employer] 10/03/2024 [id number] / / [id number] Lens Iol Ultrasert 11.5 - [id number] Implanted:Qty : 1 on 09/24/2018 by Cortez Green MD at [facility] Intraocular Lens [facility] [employer] 07/03/2020 [id number] / [id number] / Component Persona 11 Standard Cocr Femoral Cruciate Retain - [id number] Implanted:Qty : 1 on 04/12/2020 at [facility] Joint - Knee Right: Bone - Knee [employer] 08/02/2029 [id number] / / [id number] Component 38mm All Poly Patellar Psn - [id number] Implanted:Qty : 1 on 04/12/2020 at [facility] Joint - Knee Right: Bone - Knee [employer] 11/01/2027 [id number] 38 / / [id number] Nexgen All Poly Patella 38mm 9.5mm Thick - [id number] Implanted:Qty : 1 on 09/11/2011 at [facility] Joint - Patella Left: Bone - Knee [employer] 06/02/2019 [id number] 38 / / [id number] Baseplate Persona 5d G Tivanium Tibial Cemented Stem Knee Right - [id number] Implanted:Qty : 1 on 04/12/2020 at [facility] Joint Right: Bone - Knee [employer] 12/01/2029 [id number] 02 / / [id number] Extension Persona 14mm Taper 30+ Mm Stem Knee Tibia - [id number] Implanted:Qty : 1 on 04/12/2020 at [facility] Joint Right: Bone - Knee [employer] 03/17/2030 [id number] 14 / / [id number] Plug Nexgen Complete Knee Taper Stem - [id number] Implanted:Qty : 1 on 09/11/2011 at [facility] Plug Left: Bone - Knee [employer] 08/02/2021 [id number] / / [id number] Procedures Procedure Name Priority Date/Time Associated Diagnosis Comments BASIC METABOLIC PANEL Routine 04/13/2020 4:47 AM EDT LIPID PANEL, FASTING Routine 10/03/2011 11:52 AM EST Mixed hyperlipidemia from Last 3 Months or Most Recently Relevant to Health Maintenance Results * (ABNORMAL) BASIC METABOLIC PANEL (AK,AV,EU,FV,HL,DAMEON,MM,SP) (04/13/2020 4:47 AM EDT) [facility] Glucose 168(H) 74 - 99 mg/dL 04/13/2020 5:53 AM EDT [facility] BUN 16 9 - 24 mg/dL 04/13/2020 5:53 AM EDT [facility] Creatinine 1.08 0.73 - 1.22 mg/dL 04/13/2020 5:53 AM [facility] Sodium 139 136 - 144 mmol/L 04/13/2020 5:53 AM [facility] Potassium 4.0 3.7 - 5.1 mmol/L 04/13/2020 5:53 AM [facility] Chloride 102 97 - 105 mmol/L 04/13/2020 5:53 AM [facility] CO2 24 22 - 30 mmol/L 04/13/2020 5:53 AM [facility] Anion Gap 13 9 - 18 mmol/L 04/13/2020 5:53 AM [facility] Calcium 8.4(L) 8.5 - 10.2 mg/dL 04/13/2020 5:53 AM [facility] eGFR- >60 >60 04/13/2020 5:53 AM [facility] eGFR-All Other Races >60 >60 . 04/13/2020 5:53 AM [facility] Comment: eGFR (Estimated GFR) Units of measure: [...] eGFR may not accurately reflect actual GFR. Blood specimen (specimen) BLOOD SPECIMEN / Unknown 04/13/2020 4:47 AM EDT 04/13/2020 4:48 AM EDT us Tima Soto MD [facility] Final Res ult [address] [address] * (ABNORMAL) LIPID PANEL BASIC (10/03/2011 11:52 AM EST) Triglyceride 197(H) 30 - 149 mg/dL [facility] Cholesterol, Total 150 100 - 199 mg/dL [facility] HDL Cholesterol 35(L) >45 mg/dL [facility] VLDL Cholesterol 39 6 - 40 mg/dL [facility] LDL Cholesterol, Calculated 76 60 - 129 mg/dL [facility] Fasting Time 12 hrs [facility] TC:HDL Ratio 4.29 1.00 - 5.00 [facility] LDL:HDL Ratio 2.17 0.50 - 3.55 [facility] Non HDL Cholesterol 115 90 - 159 mg/dL [facility] Blood specimen (specimen) BLOOD SPECIMEN / Unknown 10/03/2011 11:52 AM EST 10/03/2011 11:54 AM EST Malvin Taylor LAB[facility] Final Result [facility] [address] [facility] 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
--- OUTSIDE RECORDS SUMMARY | 2025-03-21 17:41 | XMS_ITS | Clinical Summary ---
Author Organization [employer] tem Address [id number] [address] [place] [address] Care Team Providers Care Director Family Name Role Phone Humble Marshallley PRODUCT MANAGEMENT SPECIALIST-TELECOMMUNICATIONS OFFICER Primary Care Provider Allergies No known active allergies Medications melatonin (CIRCADIN) tablet Take 2 tablets (6 mg total) by mouth nightly. 1-2 tabs as needed nightly 12/08/19 23 Active losartan (COZAAR) 25 mg tablet Take 1 tablet (25 mg total) by mouth in the morning. 09/26/19 24 Active acetaminophen (TYLENOL EXTRA STRENGTH) 500 mg tablet 10/06/19 24 Active aspirin 81 mg 10/08/19 24 Active nitroglycerin (NITROSTAT) 0.4 MG SL tablet 10/06/19 24 Active spironolacton e (ALDACTONE) 25 mg tablet Take 0.5 tablets (12.5 mg total) by mouth in the morning. 10/08/19 24 Active omega 4-jpc-qtn-fis h oil (Fish OiL) 300-1,000 mg capsule Take by mouth. Activ e carvediloL (COREG) 12.5 mg tabletIndicat ions:Chronic diastolic CHF (congestive heart failure) ([facility]) Take 1 tablet (12.5 mg total) by mouth in the morning and 1 tablet (12.5 mg total) before bedtime. 180 tablet 1 10/15/19 24 Active JARDIANCE 25 mg tablet tabletIndicat ions:Type 2 diabetes mellitus with diabetic peripheral angiopathy without gangrene, with long-term current use of insulin ([facility]) TAKE 1 TABLET (25 MG TOTAL) BY MOUTH IN THE MORNING 90 tablet 3 05/23/20 24 Active busPIRone (BUSPAR) 10 mg tablet Take 2 tablets (20 mg total) by mouth in the morning and 2 tablets (20 mg total) before bedtime. Active mirtazapine (REMERON) 15 mg tablet Take 1 tablet (15 mg total) by mouth once daily at bedtime. 08/08/20 24 Active potassium chloride (KLOR-CON SPRINKLE) 10 MEQ CR capsule Take 1 capsule (10 mEq total) by mouth as needed. Per Dr. Watts Active atorvastatin (LIPITOR) 40 mg tablet Take 1 tablet (40 mg total) by mouth in the morning. 90 tablet 3 09/29/19 25 Active DULoxetine (CYMBALTA) 60 mg capsule Take 1 capsule (60 mg total) by mouth in the morning. 09/29/19 25 Active furosemide (LASIX) 20 mg tablet Take 1 tablet (20 mg total) by mouth daily. 90 tablet 1 10/07/19 25 Active ADMELOG SOLOSTAR U-100 INSULIN 100 unit/mL insulin penIndication s:Type 2 diabetes mellitus with diabetic peripheral angiopathy without gangrene, with long-term current use of insulin ([facility]) Per scale up to 25 units 3 times daily with meals, max dose of 75 units daily 75 mL 3 10/17/19 25 Active semaglutide (OZEMPIC) 2 mg/dose (8 mg/3 mL) pen injectorIndic ations:Type 2 diabetes mellitus with diabetic peripheral angiopathy without gangrene, with long-term current use of insulin ([facility]) Inject 2 mg under the skin every 7 days. 9 mL 3 10/17/19 25 Active hyoscyamine (LEVSIN) 0.125 mg SL tablet Take 1 tablet (125 mcg total) by mouth every 4 (four) hours as needed for cramping. 30 tablet 10/22/19 25 Active Additional Information Patient not taking.Reported on 03/17/2025 cholecalcifer ol, vitamin D3, 5,000 units tablet TAKE 1 TABLET (5,000 UNITS TOTAL) BY MOUTH IN THE MORNING. 90 tablet 3 03/04/20 25 Active clopidogreL (PLAVIX) 75 mg tablet Take 1 tablet (75 mg total) by mouth. 01/12/20 25 Active risperiDONE (RisperDAL) 0.5 mg tablet Take 1 tablet (0.5 mg total) by mouth in the morning and 1 tablet (0.5 mg total) before bedtime. 02/25/20 25 Active LORazepam (ATIVAN) 0.5 mg tablet Take 1 tablet (0.5 mg total) by mouth every 6 (six) hours as needed. Active TOUJEO MAX U-300 SOLOSTAR 300 unit/mL (3 mL) insulin penIndication s:Type 2 diabetes mellitus with diabetic peripheral angiopathy without gangrene, with long-term current use of insulin ([facility]) Inject 42 Units under the skin in the morning. Up to 75 units daily. 03/17/20 25 Active divalproex sprinkle (DEPAKOTE SPRINKLE) 125 mg capsule Take 2 capsules (250 mg total) by mouth in the morning and 2 capsules (250 mg total) before bedtime. 03/17/20 25 Active cholecalcifer ol, vitamin D3, 5,000 units tablet Take 1 tablet (5,000 Units total) by mouth in the morning. 90 tablet 3 03/14/20 24 025 Discontinued TOUJEO MAX U-300 SOLOSTAR 300 unit/mL (3 mL) insulin penIndication s:Type 2 diabetes mellitus with diabetic peripheral angiopathy without gangrene, with long-term current use of insulin ([facility]) Inject 50 Units under the skin in the morning. Up to 75 units daily. 27 mL 3 10/17/19 25 025 Discontinued QUEtiapine (SEROquel) 100 mg tablet Take 2 tablets (200 mg total) by mouth nightly. Increase 50 mg until 100mg 7 days increase another 100mg until 200mg and stop. 025 Discontinued( erapy completed) divalproex sprinkle (DEPAKOTE SPRINKLE) 125 mg capsule Take 1 capsule (125 mg total) by mouth in the morning and 1 capsule (125 mg total) before bedtime. 03/16/20 25 025 Discontinued Active Problems Problem Noted Date Diagnosed Date Obesity, morbid 03/17/2025 Gallstones 04/03/2024 Urinary retention 02/06/2024 Overview (12/10/2024): ====12/10/24==== Doing well off tamsulosin. PVR 34. JESSICA benign. Due for PSA ==== 02/06/2024 ==== history retention after back surgery. He has been on Flomax. Tamsulosin. Tolerating medication. Query whether not to come off of it. PVR is very acceptable. Diffuse like he is voiding well. Plan: May stop her start his tamsulosin. Would be reasonable to check PVR in about 3 months. Assessment & Plan (12/10/2024 4:07 PM EDT): He will stop at the lab today for a PSA. He would like a call with the results. Assuming this is stable, he would like to continue to follow with us on an annual basis. We will see him back in 1 year with a PSA and PVR Acute KS 10/15/2023 ST elevation myocardial infarction (STEMI) of in ferior wall 10/15/2023 Constipation 10/15/2023 Spinal stenosis at L4-L5 level 10/15/2023 Back pain 09/20/2023 Lower extremity weakness 09/20/2023 Diabetes mellitus 08/30/2023 Esophageal reflux 08/30/2023 CAD, multiple vessel 08/30/2023 Hyperlipidemia 08/30/2023 Obesity (BMI 30-39.9) 08/30/2023 Depression 08/30/2023 Hypertension 08/30/2023 Chronic diastolic CHF (congestive heart failure) 02/05/2023 Moderate episode of recurrent major depressive d isorder 12/25/2022 Complaint of paresthesia 11/16/2022 Obstructive sleep apnea syndrome 06/01/2022 Retinal detachment 06/01/2022 Primary osteoarthritis of right knee 06/01/2022 Overview (06/01/2022): Last Assessment & Plan: Assessment: will have surgery Autonomic neuropathy due to type 2 diabetes wendy itus 06/01/2022 Coronary arteriosclerosis 06/01/2022 MCI (mild cognitive impairment) 02/25/2021 Obesity, Class II, BMI 35-39.9 04/13/2020 S/P total knee arthroplasty, right 04/12/2020 Type 2 diabetes mellitus wit h diabetic peripheral angiopathy without gangrene, with long-term current use of insulin 10/13/2019 Obsessive-compulsive disorder 11/07/2018 Cataract, nuclear sclerotic senile, right 2017 Overview (06/01/2022): Added automatically from request for surgery [id number] Mixed anxiety and depressive disorder 09/07/2017 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 Overview (06/01/2022): Last Assessment & Plan: Assessment: had in 2012, no further episodes Vitamin D deficiency 06/28/2011 Primary hypertension 06/28/2011 Overview (06/01/2022): Last Assessment & Plan: Assessment: on med,moniotred per PCP BP 143/74 pulse 64 Mixed hyperlipidemia 06/28/2011 Overview (06/01/2022): Last Assessment & Plan: Assessment: no meds currently ,stable Fatigue 06/28/2011 02/13/2023 Pseudophakia 05/05/2011 Resolved Problems Problem Noted Date Diagnosed Date Resolved Date Cauda equina compression 09/20/2023 Absolute anemia 11/16/2022 06/06/2023 Rotator cuff strain, right, initial encounter 10/03/19 23 10/03/2022 Encounters Date Type Department Care Team Description 03/17/2025 10:00 AM EDT Office Visit [facility]/Kayden Morse MD [address] [place] [phone] Leeann Marshall, PRODUCT MANAGEMENT SPECIALIST-TELECOMMUNICATIONS OFFICER Medicare annual wellness visit, subsequent (Primary Dx); Type 2 diabetes mellitus with diabetic peripheral angiopathy without gangrene, with long-term current use of insulin ([facility]); Primary hypertension; Pseudodementia; Obesity, morbid (CMS-HCC); CAD, multiple vessel; Mixed hyperlipidemia; Moderate episode of recurrent major depressive disorder (CMS-HCC); Gait disturbance; Incontinence of feces, unspecified fecal incontinence type 03/17/2025 Travel 03/01/2025 Refill [facility]/Kayden Morse MD [address] [place] [phone] Leeann Marshall APRN-CNP 02/04/2025 Telephone [facility]/Kayden Morse MD [address] [place] [phone] Cony Bahena, [facility] Med Refill 01/28/2025 Travel 01/18/2025 11:36 AM EDT - 01/18/2025 3:13 PM EDT Emergency [facility] [address] [place] [phone] Robert Shanks DO Agitation (Primary Dx); Anxiety Discharge Disposition: Home 01/18/2025 Travel 01/14/2025 11:15 AM EDT Office Visit [facility] Adult Endocrinology, A Department of [facility] [address] [facility] [address] [place] [address] Alea Mckenzie MD Type 2 diabetes mellitus with diabetic peripheral angiopathy without gangrene, with long-term current use of insulin ([facility]) (Primary Dx) 01/14/2025 Travel 01/08/2025 Telephone [facility] Neurology, A Department of [facility] [address] [facility] [address] [place] [phone] Soraya Jackson New Patient 01/07/2025 3:40 PM EDT Office Visit [facility]/Kayden Morse MD [address] [place] [phone] Leeann Marshall APRN-CNP Gait disturbance (Primary Dx); Moderate episode of recurrent major depressive disorder ([facility]) 01/07/2025 Travel 12/31/2024 12:17 PM EDT - 12/31/2024 3:48 PM EDT Emergency [facility] [address] [place] [address] Elizabeth Black MD Abrasions of multiple sites (Primary Dx); Fall, initial encounter; Balance problem Discharge Disposition: Home 12/31/2024 Travel from Last 3 Months Immunizations Immunization Administration Dates Next Due Pneumococcal Polysaccharide 09/14/2011 Tdap 12/31/2024 Family History Medical History Relation Name Comments Heart disease Father Hyperlipidemia Father Hypertension Father Diabetes Mother Hypertension Mother Cirrhosis Neg Hx Colon cancer Neg Hx Inflammatory bowel disease Neg Hx Relation Name Status Comments Father Mother Social History Tobacco Use Types Packs/Day Years Used Date Smoking Tobacco: Never Smokeless Tobacco: Never Tobacco Cessation:Counseling Given: Not Answered Alcohol Use Standard Drinks/Week Comments Not Currently [...] often do you attend chur ch or religion services? More than 4 times per year 04/17/2023 Do you belong to any clubs o r organizations such as synagogue groups, unions, fraternal or athletic groups, or [...] Answer Date Recorded Total Score 13 03/17/2025 [facility] - Occupational Stress Questionnaire Answer Date Recorded [...] Recorded Do you need help finding a [facility] career center and/or a [...] F) 03/17/2025 10:19 AM EDT Respiratory Rate 18 01/18/2025 11:38 AM EDT Oxygen Saturation 98% 03/17/2025 10:19 AM EDT Inhaled Oxygen Concentration - - Weight 116.6 kg (257 lb) 03/17/2025 10:19 AM EDT Height 180.3 cm (5' 11 ) 03/17/2025 10:19 AM EDT Body Mass Index 35.84 03/17/2025 10:19 AM EDT Plan of Treatment Upcoming Encounters Date Type Department Care Team (Late st Contact Info) Description 06/19/2025 10:20 AM EDT Office Visit [facility]/Kayden Morse MD [address] [facility] [address] [place] [phone] Leeann Marshall APRN-TELECOMMUNICATIONS OFFICER [address] [facility] [address] [place] [address] 07/22/2025 11:00 AM EST Office Visit [facility], A Department of [facility] [address] [facility] [address] [place] [address] Alea Mckenzie MD [address] [facility] [place] [address] 12/14/2025 3:15 PM EDT Office Visit [facility] [address] [place] [address] [place] [place] [address] Nathan Blankenship MD [address] [place] [address] Health Maintenance Due Date Last Done Comments Diabetic Ophthalmology Exam 1957 Adult BMI Follow Up Plan 1975 Zoster (Shingles) Vaccine (1 of 2) 2007 Diabetic Foot Exam 08/07/2024 08/07/2023 Influenza Vaccine 05/04/2025 Tobacco Screening 02/01/2026 03/20/2025 Adult BMI Screening 03/17/2026 03/17/2025 Depression Screening 03/17/2026 03/17/2025 Fall Risk Screening 03/17/2026 03/17/2025 Medicare Annual Wellness Visit 03/17/2026 03/17/2025 , 04/17/2023 DTaP,Tdap and Td Vaccines (2 - Td or Tdap) 12/31/2034 12/31/2024 Goals Goal Patient Goal Type Associated Problems Recent Progress Patient-Stated? Author Return home General Yes Adeline Tran, SAMUEL Note: Evaluation of progress towards goal: Plan to return home with spouse. Medical Devices Implanted Type Area Guest Services Assistant Device Identifier Shelf Expiration Date Model / Serial / Lot Cap Lck Creo Spnl Thrd Ns Rpl Special [id number] - [id number] Implanted:Qty : 4 on 09/21/2023 by Mynor Steen MD at [facility] Orthopedic Implant N/A: Spine Lumbar Globus [id number] / / Graft Bn Cllr Bn Mtrx Lg 10cc Vivigen Frmbl Vivigen Rpl [id number] - [id number] Implanted:Qty : 1 on 09/21/2023 by Mynor Steen MD at [facility] Other Implant N/A: Spine Lumbar Lifenet 07/03/2024 BL-1600-0 03 / / [id number] Bridger Spnl Creo 45mm 5.5mm Ti Crv Ns Rpl Special [id number] - [id number] Implanted:Qty : 2 on 09/21/2023 by Mynor Steen MD at [facility] Bridger N/A: Spine Lumbar Globus [id number] / / Screw Bn 50mm 6.5mm Cnn Spne Creo Ns Lf - [id number] Implanted:Qty : 4 on 09/21/2023 by Mynor Steen MD at [facility] Screw N/A: Spine Lumbar Globus [id number] / / Procedures Procedure Name Priority Date/Time Associated Diagnosis Comments LIVER PANEL Routine 01/28/2025 9:37 AM EDT 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 longshore equipment operator (current) drug therapy CBC WITH AUTO DIFFERENTIAL Routine 01/28/2025 9:37 AM EDT 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 longshore equipment operator (current) drug therapy VALPROIC ACID DEPAKANE Routine 01/28/2025 9:37 AM EDT Other fci (current) drug therapy POCT NURSING URINE MACROSCOPIC UA Routine 01/18/2025 1:01 PM EDT ER EXTRA URINE CULTURE STAT 01/18/2025 12:53 PM EDT ER EXTRA URINE STAT 01/18/2025 12:53 PM EDT POCT NURSING URINE MACROSCOPIC UA Routine 01/18/2025 12:24 PM EDT LAVENDER TOP STAT 01/18/2025 12:07 PM EDT PST TOP STAT 01/18/2025 12:07 PM EDT BLUE TOP STAT 01/18/2025 12:07 PM EDT ACETAMINOPHEN LEVEL STAT Add-on 01/18/2025 1 2:07 PM EDT SALICYLATE LEVEL STAT Add-on 01/18/2025 12:0 7 PM EDT ETHANOL STAT Add-on 01/18/2025 12:07 PM EDT DRUG SCREEN, URINE STAT Add-on 01/18/2025 12 :07 PM EDT COMPREHENSIVE METABOLIC PANEL STAT Add-on 01/18/2025 12:07 PM EDT CBC WITH AUTO DIFFERENTIAL STAT 01/18/2025 12:07 PM EDT RAINBOW DRAW STAT 01/18/2025 12:07 PM EDT ER EXTRA URINE CULTURE STAT 01/18/2025 12:07 PM EDT ER EXTRA URINE STAT 01/18/2025 12:07 PM EDT POCT HEMOGLOBIN A1C Routine 01/14/2025 Type 2 diabetes mellitus with diabetic peripheral angiopathy without gangrene, with long-term current use of insulin ([facility]) TROP I, HIGH SENSITIVITY 1 HOUR STAT 12/31/2024 2:28 PM EDT POCT NURSING URINE MACROSCOPIC UA Routine 12/31/2024 2:[address] FACIAL BONES WO CONT STAT 12/31/2024 1:[address] CERVICAL SPINE WO CONT STAT 12/31/2024 1:[address] BRAIN WO CONT STAT 12/31/2024 1:12 PM EDT TROPONIN I, HIGH SENSITIVITY 0 HOUR STAT 12/31/2024 1:00 PM EDT ETHANOL STAT 12/31/2024 1:00 PM EDT CBC WITH AUTO DIFFERENTIAL STAT 12/31/2024 1:00 PM EDT B-TYPE NATRIURETIC PEPTIDE STAT 12/31/2024 1:00 PM EDT BASIC METABOLIC PANEL STAT 12/31/2024 1:00 PM EDT TROPONIN I, HIGH SENSITIVITY 0 HOUR STAT 12/31/2024 1:00 PM EDT APTT STAT 12/31/2024 1:00 PM EDT PROTIME & INR STAT 12/31/2024 1:00 PM EDT MAGNESIUM STAT 12/31/2024 1:00 PM EDT ECG 12-LEAD STAT 12/31/2024 12:54 PM EDT from Last 3 Months Results * (ABNORMAL) Valproic acid, depakane (01/28/2025 9:37 AM EDT) [facility] VALPROIC ACID 34(L) 50 - 100 ug/mL 01/28/2025 2:13 PM EDT [facility] Blood Venous blood / Unknown Venipuncture / Unknown 01/28/2025 9:37 AM EDT 01/28/2025 9:37 AM EDT us Karlee Daniels MD LAB BLOOD ORDERABLES Final Re sult [facility] [address] [place] [address], * (ABNORMAL) CBC auto differential (01/28/2025 9:37 AM EDT) Only the most recent of3 resultswithin the time period is included. [facility] WBC 7.6 4 - 11 x10E9/L 01/28/2025 1:55 PM EDT [facility] RBC Count 4.50 4.1 - 5.7 X10E12/L 01/28/2025 1:55 PM EDT [facility] Hemoglobin 13.8 13 - 17 g/dL 01/28/2025 1:55 PM EDT [facility] Hematocrit 40.6 39 - 50 % 01/28/2025 1:55 PM EDT [facility] MCV 90 80 - 100 fL 01/28/2025 1:55 PM EDT [facility] MCH 30.7 27 - 34 pg 01/28/2025 1:55 PM EDT [facility] MCHC 34.1 32 - 36 g/dL 01/28/2025 1:55 PM EDT [facility] RDW 16.4(H) 11.5 - 15 % 01/28/2025 1:55 PM EDT [facility] Platelet Count 243 150 - 450 X10E9/L 01/28/2025 1:55 PM EDT [facility] MPV 7.3 7 - 12 fL 01/28/2025 1:55 PM EDT [facility] Neutrophils % 73.2 % 01/28/2025 1:55 PM EDT [facility] Lymphocytes % 16.9 % 01/28/2025 1:55 PM EDT [facility] Monocytes % 7.5 % 01/28/2025 1:55 PM EDT [facility] Eosinophils % 1.9 % 01/28/2025 1:55 PM EDT [facility] Basophils % 0.5 % 01/28/2025 1:55 PM EDT [facility] Neutrophils Absolute (A) 5.5 1.5 - 6.6 10*3/uL 01/28/2025 1:55 PM EDT [facility] Lymphocytes Absolute 1.3 1.0 - 3.5 10*3/uL 01/28/2025 1:55 PM EDT [facility] Monocytes Absolute 0.6 0.0 - 0.9 10*3/uL 01/28/2025 1:55 PM EDT [facility] Eosinophils Absolute 0.1 0.0 - 0.4 10*3/uL 01/28/2025 1:55 PM EDT [facility] Basophils Absolute 0.0 0.0 - 0.2 10*3/uL 01/28/2025 1:55 PM EDT [facility] Differential Type AUTOMATED DIFFERENTIAL 01/28/2025 1:55 PM EDT [facility] Blood Venous blood / Unknown Venipuncture / Unknown 01/28/2025 9:37 AM EDT 01/28/2025 9:37 AM EDT us Karlee Daniels MD LAB BLOOD ORDERABLES Final Re sult [facility] [address] [place] [address], [place] [phone] * Liver panel (01/28/2025 9:37 AM EDT) [facility] TOTAL PROTEIN 7.1 6.0 - 8.0 g/dL 01/28/2025 2:13 PM EDT [facility] ALBUMIN 4.3 3.2 - 5.3 g/dL 01/28/2025 2:13 PM EDT [facility] BILIRUBIN,TOTAL 0.3 0.3 - 1.2 mg/dL 01/28/2025 2:13 PM EDT [facility] ALKALINE PHOSPHATASE 64 39 - 130 U/L 01/28/2025 2:13 PM EDT [facility] AST 20 <=41 U/L 01/28/2025 2:13 PM EDT [facility] ALT 21 <=40 U/L 01/28/2025 2:13 PM EDT [facility] BILIRUBIN,DIRECT <0.1 <=0.4 mg/dL 01/28/2025 2:13 PM EDT [facility] Blood Venous blood / Unknown Venipuncture / Unknown 01/28/2025 9:37 AM EDT 01/28/2025 9:37 AM EDT Karlee Daniels MD LAB BLOOD ORDERABLES Final Re sult [facility] [address] [place] [address], * (ABNORMAL) POCT Nursing Urine Macroscopic UA (01/18/2025 1:01 PM EDT) Only the most recent of3 resultswithin the time period is included. [facility] POC Urine Specific [place] 1.010 1.010, 1.015, 1.020, 1.025 01/18/2025 12:56 PM EDT [facility] POC Urine Leukocyte Esterase Negative Negative 01/18/2025 12:56 PM EDT [facility] POC Urine Nitrite Negative Negative 01/18/2025 12:56 PM EDT [facility] POC Urine pH 6.5 5.0, 6.0, 6.5, 7.0, 7.5, 8.0, 8.5, 5.5 01/18/2025 12:56 PM EDT [facility] POC Urine Protein Negative Negative 01/18/2025 12:56 PM EDT [facility] POC Urine Glucose 500 mg/dL(A) Negative 01/18/2025 12:56 PM EDT [facility] POC Urine Ketones Negative Negative 01/18/2025 12:56 PM EDT [facility] POC Urine Urobilinogen 0.2 E.U./dL 01/18/2025 12:56 PM EDT [facility] POC Urine Bilirubin Negative Negative 01/18/2025 12:56 PM EDT [facility] POC Urine Blood/HGB Trace(A) Negative 01/18/2025 12:56 PM EDT [facility] Urine 01/18/2025 1:01 PM EDT 01/18/2025 12:56 PM EDT us Robert Shansk DO POINT OF CARE TEST ORDERABLES Fi nal Result Performing Organization Address [facility]/ZIP Co de Phone Number [facility] [address] [place] [id number], * Extra Urine Culture (01/18/2025 12:53 PM EDT) Only the most recent of2 resultswithin the time period is included. Extra Tube Auto Resulted 01/19/2025 9:01 AM EDT [facility] Urine Urine specimen collection, clean catch / Unknown 01/18/2025 12:53 PM EDT 01/19/2025 8:11 AM EDT us Kristi Day PRODUCT MANAGEMENT SPECIALIST-TELECOMMUNICATIONS OFFICER URINE ORDERABLES Tiara l Result [address] [place] [address], [place] * Extra Urine (01/18/2025 12:53 PM EDT) Only the most recent of2 resultswithin the time period is included. Extra Tube Auto Resulted 01/18/2025 2:02 PM EDT [facility] Urine Urine specimen collection, clean catch / Unknown 01/18/2025 12:53 PM EDT 01/18/2025 1:08 PM EDT us Kristi Day PRODUCT MANAGEMENT SPECIALIST-TELECOMMUNICATIONS OFFICER URINE ORDERABLES Tiara l Result Performing Organization Address City/[facility]/ZIP Co de Phone Number [address] [place] [address], [place] * Lavender Top (01/18/2025 12:07 PM EDT) Extra Tube Auto Resulted 01/18/2025 2:02 PM EDT [facility] Blood Venous blood / Unknown 01/18/2025 12:07 PM EDT 01/18/2025 12:12 PM EDT us Robert A Park DO LAB BLOOD ORDERABLES Final Resul t Performing Organization Address City/[facility] Co de Phone Number [address] [place] [address], [place] * PST TOP (01/18/2025 12:07 PM EDT) Extra Tube Auto Resulted 01/18/2025 2:02 PM EDT [facility] Blood Venous blood / Unknown 01/18/2025 12:07 PM EDT 01/18/2025 12:12 PM EDT us Robert A Park DO LAB BLOOD ORDERABLES Final Resul t Performing Organization Address City/[facility]/ZIP Co de Phone Number [address] [place] [address], [place] * Light Blue Top (01/18/2025 12:07 PM EDT) Extra Tube Auto Resulted 01/18/2025 2:02 PM EDT [facility] Blood Venous blood / Unknown 01/18/2025 12:07 PM EDT 01/18/2025 12:12 PM EDT us Robert Shanks DO LAB BLOOD ORDERABLES Final Resul t [address] [address], [place] * Drug Screen, Urine (01/18/2025 12:07 PM EDT) AMPHETAMINE/METHAMP Negative Negative 01/18 1:17 PM EDT [facility] Comment:AMPH/METH screening cut off = 1000 ng/mL COCAINE METABOLITE Negative Negative 2024 1:17 PM EDT [facility] Comment:Cocaine screening cu t off value = 300 ng/mL ECSTASY Negative Negative 01/18/2025 1:17 PM EDT [facility] Comment:Ecstasy screening cu t off value = 500 ng/mL METHADONE Negative Negative 01/18/2025 1:17 PM EDT [facility] Comment:Methadone screening cut off value = 300 ng/mL. OPIATES Negative Negative 01/18/2025 1:17 PM EDT [facility] Comment: Opiates screening cut off value = 300 ng/mL This test is used for the detection of codeine, hydrocodone (>1000 ng/mL), morphine and hydromorphone (>900 ng/mL) in urine. OXYCODONE Negative Negative 01/18/2025 1:17 PM EDT [facility] Comment: Oxycodone screening cut off value = 300 ng/mL This test is used for the detection of oxycodone and oxymorphone in urine. PHENCYCLIDINE Negative Negative 01/18/2025 1:17 PM EDT [facility] Comment:Phencyclidine screen ing cut off value = 25 ng/mL CANNABINOIDS Negative Negative 01/18/2025 1:17 PM EDT [facility] Comment:Cannabinoids/THC scr eening cut off value = 50 ng/mL Urine Barbiturates Negative Negative 2024 1:17 PM EDT [facility] Comment:Barbiturates screeni ng cut off value = 200 ng/mL BENZODIAZEPINES Negative Negative 1:17 PM EDT [facility] Comment:Benzodiazepines scre ening cut off value = 200 ng/mL Urine Urine specimen collection, clean catch / Unknown 01/18/2025 12:07 PM EDT 01/18/2025 12:36 PM EDT Kristi Day [facility]NNEW [facility] URINE ORDERABLES Tiara l Result Performing Organization Address City/[facility] Co de Phone Number [address] [place] [address], [place] * Ethanol (01/18/2025 12:07 PM EDT) Only the most recent of2 resultswithin the time period is included. ETHANOL <0.010 <=0.080 g/dL 01/18/2025 12:41 PM EDT [facility] Comment: This report is intended for use in clinical monitoring or management of patients. Blood Venous blood / Unknown 01/18/2025 12:07 PM EDT 01/18/2025 12:12 PM EDT Kristi Day APRN-TELECOMMUNICATIONS OFFICER LAB BLOOD ORDERABLES Final Result Performing Organization Address City/[facility] Co de Phone Number [facility] [address] [place] [address] [place] [address], [place] * Acetaminophen level (01/18/2025 12:07 PM EDT) ACETAMINOPHEN 16.9 10.0 - 30.0 ug/mL 01/18/2025 12:41 PM EDT [facility] Blood Venous blood / Unknown 01/18/2025 12:07 PM EDT 01/18/2025 12:[address] [facility] - 01/18/2025 12:41 PM EDT Reference ranges are for therapeutic limits. Kristi Day PRODUCT MANAGEMENT SPECIALIST-TELECOMMUNICATIONS OFFICER LAB BLOOD ORDERABLES Final Result [address] [place] [address], [place] * Salicylate level (01/18/2025 12:07 PM EDT) SALICYLATE <4.0 2.0 - 25.0 mg/dL 01/18/2025 12:41 PM EDT [facility] Blood Venous blood / Unknown 01/18/2025 12:07 PM EDT 01/18/2025 12:[address] [facility] - 01/18/2025 12:41 PM EDT Reference ranges are for therapeutic limits. Kristi Day PRODUCT MANAGEMENT SPECIALIST-TELECOMMUNICATIONS OFFICER LAB BLOOD ORDERABLES Final Result Performing Organization Address City/[facility]/ZIP Co de Phone Number [address] [place] [address], [place] * (ABNORMAL) Comprehensive metabolic panel (01/18/2025 12:07 PM EDT) SODIUM 132(L) 134 - 146 mmol/L 01/18/2025 12:41 PM EDT [facility] POTASSIUM 4.6 3.5 - 5.0 mmol/L 01/18/2025 12:41 PM EDT [facility] Comment:R-Specimen hemolyzed , results increased CHLORIDE 105 98 - 109 mmol/L 01/18/2025 12:41 PM EDT [facility] CARBON DIOXIDE 21(L) 22 - 32 mmol/L 01/18/2025 12:41 PM EDT [facility] ANION GAP 6 5 - 15 mmol/L 01/18/2025 12:41 PM EDT [facility] BLOOD UREA NITROGEN 27 5 - 27 mg/dL 01/18/2025 12:41 PM EDT [facility] CREATININE 0.93 0.70 - 1.20 mg/dL 01/18/2025 12:41 PM EDT [facility] Comment:METHOD TRACEABLE TO IDMS STANDARD GLUCOSE 132(H) 65 - 99 mg/dL 01/18/2025 12:41 PM EDT [facility] CALCIUM 8.9 8.5 - 10.5 mg/dL 01/18/2025 12:41 PM EDT [facility] TOTAL PROTEIN 7.7 6.0 - 8.0 g/dL 01/18/2025 12:41 PM EDT [facility] ALBUMIN 4.2 3.2 - 5.3 g/dL 01/18/2025 12:41 PM EDT [facility] ALKALINE PHOSPHATASE 91 39 - 130 U/L 01/18/2025 12:41 PM EDT [facility] AST 32 <=41 U/L 01/18/2025 12:41 PM EDT [facility] ALT 31 <=40 U/L 01/18/2025 12:41 PM EDT [facility] BILIRUBIN,TOTAL 0.9 0.3 - 1.2 mg/dL 01/18/2025 12:41 PM EDT [facility] Comment:R-Results questionab le due to hemolysis EGFR Non-Race Dependent 90 >=60 ml/min/1.7 3sq.m 01/18/2025 12:41 PM T [facility] Comment: eGFR not reported due to non-numeric value for Creatinine. Reported eGFR is based on the CKD-EPI 2020 equation that does not use a race coefficient. Blood Venous blood / Unknown 01/18/2025 12:07 PM EDT 01/18/2025 12:12 PM EDT us Kristi Day PRODUCT MANAGEMENT SPECIALIST-TELECOMMUNICATIONS OFFICER LAB BLOOD ORDERABLES Final Result Performing Organization Address City/[facility]/ZIP Co de Phone Number [address] [place] [address], [place] * POCT Hemoglobin A1c (01/14/2025) Pathologist [facility] External Poct Hgb A1C 6.6 4 - 7 % Blood 01/14/2025 Alea Mckenzie MD POINT OF CARE TEST ORDERABLES Fi nal Result * Troponin I, High Sensitivity 1 Hour (12/31/2024 2:28 PM EDT) [facility] TROPONIN I, HIGH SENSITIVITY 12 <21 ng/L 12/31/2024 3:00 PM EDT [facility] Blood Venous blood / Unknown 12/31/2024 2:28 PM EDT 12/31/2024 2:30 PM EDT Elizabeth Black MD LAB BLOOD ORDERABLES Final Re sult Performing Organization Address City/[facility] Co de Phone Number [address] [place] [address], [place] * CT facial bones without contrast (12/31/2024 1:18 PM EDT) Anatomical Region Laterality Modality Neuro, Face, Neuro Covera N/A Comput ed Tomography 12/31/2024 1:20 PM EDT Narrative 12/31/2024 1:41 PM EDT EXAM: CT FACIAL BONES WO CONT INDICATION: fall, facial trauma. Pain. COMPARISON: 04/30/2008. TECHNIQUE: Standard noncontrast axial CT sections through the head and face/sinus. All CT scans at this facility use dose modulation, iterative reconstruction, and/or weight based dosing when appropriate to reduce radiation dose to as low as reasonably achievable. FINDINGS: CT brain noncontrast of same day dictated separately. CT cervical spine of same date dictated separately. Facial Bones: No acute orbital wall fracture. No acute maxillofacial or mandible fracture. Facial Soft Tissues: Unremarkable. Orbits: Symmetric. Bilateral postsurgical changes of the globes. Paranasal Sinuses: Bilateral maxillary sinus mucosal thickening greater on the left than right. Mastoid Air Cells: Well aerated. Extracranial Soft Tissues: No acute abnormality. Calcified plaque of the bilateral carotid bulbs. IMPRESSION: * No acute facial bone fracture. Approved by Layla Baldwin DO on 12/31/2024 1:20 PM Bassem Brumfield MD have personally reviewed the image(s) and agree with and/or edited the report Finalized by Bassem Paz MD on 12/31/2024 1:41 PM Procedure Note Bassem Paz MD - 12/31/2024 EXAM: CT FACIAL BONES WO CONT INDICATION: fall, facial trauma. Pain. COMPARISON: 04/30/2008. TECHNIQUE: Standard noncontrast axial CT sections through the head andface/sinus. All CT scans at this facility use dose modulation, iterativereconstruction, and/or weight based dosing when appropriate to reduceradiation dose to as low as reasonably achievable. FINDINGS: CT brain noncontrast of same day dictated separately. CT cervical spine of same date dictated separately. Facial Bones: No acute orbital wall fracture. No acute maxillofacial ormandible fracture. Facial Soft Tissues: Unremarkable. Orbits: Symmetric. Bilateral postsurgical changes of the globes. Paranasal Sinuses: Bilateral maxillary sinus mucosal thickening greater onthe left than right. Mastoid Air Cells: Well aerated. Extracranial Soft Tissues: No acute abnormality. Calcified plaque of thebilateral carotid bulbs. IMPRESSION: * No acute facial bone fracture. Approved by Layla Baldwin DO on 12/31/2024 1:20 PM Bassem Brumfield MD have personally reviewed the image(s) and agree withand/or edited the report Finalized by Bassem Paz MD on 12/31/2024 1:41 PM Elizabeth Black MD IMG CT ORDERABLES Final Resul t * CT cervical spine without contrast (12/31/2024 1:18 PM EDT) Anatomical Region Laterality Modality MSK, Neuro, Spine, C-spine, Spine Covera N/A Computed Tomography 12/31/2024 1:24 PM EDT Narrative 12/31/2024 1:25 PM EDT CLINICAL INFORMATION: fall, elderly . Trauma. TECHNIQUE: CT CERVICAL SPINE WO CONT CT images of the cervical spine were obtained. Images are reformatted in the sagittal and coronal planes. Endplates are intact but acute compression. Facets are aligned. There is no vertebral body malalignment. No prevertebral soft tissue swelling or evidence of acute cervical spine fracture. Incidental left maxillary sinus mucosal thickening. Lung apices appear clear. Images of soft tissue neck show bilateral internal carotid artery atherosclerotic calcifications IMPRESSION: No acute findings. All CT scans at this facility use dose modulation, iterative reconstruction, and/or weight based dosing when appropriate to reduce radiation dose to as low as reasonably achievable. Finalized by Reilly Hassan MD on 12/31/2024 1:25 PM Procedure Note Reilly Hassan MD - 12/31/2024 CLINICAL INFORMATION: fall, elderly . Trauma. TECHNIQUE: CT CERVICAL SPINE WO CONT CT images of the cervical spine were obtained. Images are reformatted inthe sagittal and coronal planes. Endplates are intact but acutecompression. Facets are aligned. There is no vertebral body malalignment.No prevertebral soft tissue swelling or evidence of acute cervical spinefracture. Incidental left maxillary sinus mucosal thickening. Lung apices appearclear. Images of soft tissue neck show bilateral internal carotid arteryatherosclerotic calcifications IMPRESSION: No acute findings. All CT scans at this facility use dose modulation, iterativereconstruction, and/or weight based dosing when appropriate to reduceradiation dose to as low as reasonably achievable. Finalized by Reilly Hassan MD on 12/31/2024 1:25 PM Elizabeth Black MD IM CT ORDERABLES Final Resul t * CT brain without contrast (12/31/2024 1:12 PM EDT) Anatomical Region Laterality Modality Neuro, Head, Head and Neck, Neuro Covera N/A Computed Tomography 12/31/2024 1:13 PM EDT Narrative 12/31/2024 1:14 PM EDT CLINICAL INFORMATION: fall, head injury, elderly TECHNIQUE: CT BRAIN WO CONT CT images of the brain were obtained. Pettit-white differentiation appears intact. No acute intracranial hemorrhage seen. No mass or midline shift. Basilar cisterns are patent. Left maxillary sinus mucosal thickening noted. Osseous structures are intact. IMPRESSION: No acute intracranial findings. All CT scans at this facility use dose modulation, iterative reconstruction, and/or weight based dosing when appropriate to reduce radiation dose to as low as reasonably achievable. Finalized by Reilly Hassan MD on 12/31/2024 1:14 PM Procedure Note Reilly Hassan MD - 12/31/2024 CLINICAL INFORMATION: fall, head injury, elderly TECHNIQUE: CT BRAIN WO CONT CT images of the brain were obtained. Pettit-white differentiation appearsintact. No acute intracranial hemorrhage seen. No mass or midline shift.Basilar cisterns are patent. Left maxillary sinus mucosal thickeningnoted. Osseous structures are intact. IMPRESSION: No acute intracranial findings. All CT scans at this facility use dose modulation, iterativereconstruction, and/or weight based dosing when appropriate to reduceradiation dose to as low as reasonably achievable. Finalized by Reilly Hassan MD on 12/31/2024 1:14 PM Elizabeth Black MD IMG CT ORDERABLES Final Resul t * Troponin I, High Sensitivity 0 Hour (12/31/2024 1:00 PM EDT) TROPONIN I, HIGH SENSITIVITY 10 <21 ng/L 12/31/2024 1:38 PM EDT [facility] Blood Venous blood / Unknown 12/31/2024 1:00 PM EDT 12/31/2024 1:08 PM EDT Elizabeth Black MD LAB BLOOD ORDERABLES Final Re sult [address] [place] [address], [place] * APTT (12/31/2024 1:00 PM EDT) APTT 28 26 - 37 sec 12/31/2024 1:25 PM EDT [facility] Blood 12/31/2024 1:00 PM EDT 12/31/2024 1:08 PM EDT us Elizabeth Black MD LAB BLOOD ORDERABLES Final Re sult Performing Organization Address City/[facility]/ZIP Co de Phone Number [address] [place] [address], [place] * Protime & INR (12/31/2024 1:00 PM EDT) PROTIME 11.7 9.8 - 13.2 sec 12/31/2024 1:25 PM EDT [facility] INR 1.0 0.9 - 1.2 12/31/2024 1:25 PM EDT [facility] Blood 12/31/2024 1:00 PM EDT 12/31/2024 1:08 PM EDT us Elizabeth Black MD LAB BLOOD ORDERABLES Final Re sult [address] [place] [address], [place] * B-type natriuretic peptide (12/31/2024 1:00 PM EDT) BNP 56 <=100 pg/mL 12/31/2024 2:04 PM EDT [facility] Blood 12/31/2024 1:00 PM EDT 12/31/2024 1:08 PM EDT us Elizabeth Black MD LAB BLOOD ORDERABLES Final Re sult Performing Organization Address City/[facility]/ZIP Co de Phone Number [facility] [address] [place] [address] [place] [address], [place] * Magnesium (12/31/2024 1:00 PM EDT) MAGNESIUM 2.1 1.8 - 2.6 mg/dL 12/31/2024 1:30 PM EDT [facility] Blood Venous blood / Unknown 12/31/2024 1:00 PM EDT 12/31/2024 1:08 PM EDT us Elizabeth Black MD LAB BLOOD ORDERABLES Final Re sult Performing Organization Address [facility] Co de Phone Number [address] [place] [address], [place] * (ABNORMAL) Basic Metabolic Panel (12/31/2024 1:00 PM EDT) SODIUM 139 134 - 146 mmol/L 12/31/2024 1:30 PM EDT [facility] POTASSIUM 3.9 3.5 - 5.0 mmol/L 12/31/2024 1:30 PM EDT [facility] CHLORIDE 106 98 - 109 mmol/L 12/31/2024 1:30 PM EDT [facility] CARBON DIOXIDE 23 22 - 32 mmol/L 12/31/2024 1:30 PM EDT [facility] ANION GAP 10 5 - 15 mmol/L 12/31/2024 1:30 PM EDT [facility] BLOOD UREA NITROGEN 28(H) 5 - 27 mg/dL 12/31/2024 1:30 PM EDT [facility] CREATININE 0.98 0.70 - 1.20 mg/dL 12/31/2024 1:30 PM EDT [facility] Comment:METHOD TRACEABLE TO IDMS STANDARD GLUCOSE 118(H) 65 - 99 mg/dL 12/31/2024 1:30 PM EDT [facility] CALCIUM 9.4 8.5 - 10.5 mg/dL 12/31/2024 1:30 PM EDT [facility] EGFR Non-Race Dependent 85 >=60 ml/min/1.7 3sq.m 12/31/2024 1:30 PM EDT [facility] Comment: eGFR not reported due to non-numeric value for Creatinine. Reported eGFR is based on the CKD-EPI 2020 equation that does not use a race coefficient. Blood Venous blood / Unknown 12/31/2024 1:00 PM EDT 12/31/2024 1:08 PM EDT Elizabeth Black MD LAB BLOOD ORDERABLES Final Re sult Performing Organization Address City/[facility] Co de Phone Number [facility] [address] [facility] [place] [address], * ECG 12 lead (12/31/2024 12:54 PM EDT) 12/31/2024 12:5 4 PM EDT Elizabeth Black MD ECG ORDERABLES Final Result Performing Organization Address City/[facility] Co de Phone Number TRACEMASTERVUE from Last 3 Months Insurance [employer] MEDICARE Advance Directives Documents on File Type Date Recorded Patient Therapeutic Case Manager Expl anation Durable Power of Lead Pressman 08/08/2024 3:27 PM * Full Code (Latest Code Status on File) Date Activated Date Inactivated Comments 09/20/2023 6:01 AM 09/26/2023 7:04 PM Care Teams Director Family Relationship Specialty Start Date End Date Leeann Marshall APRN-QI [address] [facility] [address] [place] [address] PCP - General Internal Medicine 11/15/23
--- OUTSIDE RECORDS SUMMARY | 2025-03-21 17:41 | XMS_ITS | Encounter Summary ---
Author Organization [facility] Address [id number] [address] [place] [address] Care Team Providers Care Scale Shooter Name Role Phone Leeann Marshall DISTRICT ADVISER-BOOM MASTER Primary Care Provider [phone] Encounter Details Date Type Department Care Team (Late st Contact Info) Description 08/07/2023 Orders Only [facility] Internal Medicine - Family Medicine [address] [place] [address] Tom Pires, DO [address] [place] [address] Social History Tobacco Use Types Packs/Day Years [...] often do you attend chur ch or hindu services? More than 4 times per year [...] Answer Date Recorded Total Score 0 07/18/2023 [facility] - Occupational [...] Recorded Do you need help finding a [facility] career center and/or a training program? No 04/17/2023 Hunger Screening Answer Date Recorded Within the past 12 months we worried whether our food would run out before we got money to buy more. Never True 08/07/2023 Within the past 12 months th e food we bought just didn't last and we didn't have money to get more. Never True 08/07/2023 Purpose - Life Answer Date Recorded I [...] Description 06/19/2025 10:20 AM EDT Office Visit [facility] Internal Medicine/Kayden Morse MD [address] [facility] [address] [place] [address] Leeann Marshall APRN-BOOM MASTER [address] [facility] [address] [place] [address] 07/22/2025 11:00 AM EST Office Visit [facility] Adult Endocrinology, A Department of [facility] [address] [facility] [address] [place] [address] Alea Mckenzie MD [address] [facility] [place] [address] 12/14/2025 3:15 PM EDT [facility] [address] [place] [address] [place] [address] [place] [phone] Nathan Blankenship MD [address] [place] [address] documented as of this encounter Procedures Procedure Name Priority Date/Time Associated Diagnosis Comments EXTERNAL SENIOR NET DEVELOPER, CASSIUS DEL RIO Routine 08/07/2023 10:42 AM EST documented in this encounter Results * EXTERNAL SENIOR NET DEVELOPER, CASSIUS DEL RIO (08/07/2023 10:42 AM EST) Tom Pires DO [place] [facility] Final Result MANUALLY TRANSCRIBED RESULTS documented in this encounter Visit Diagnoses Not on filedocumented in this encounter Additional Health Concerns Assessment Noted Time PHQ-9 Depression Total Score: 0 07/18/20 23 1:57 PM EST documented as of this encounter Care Teams Scale Shooter Relationship Specialty Start Date End Date Leeann Marshall APRN-BOOM MASTER [facility] [facility] [address] [place] [id number] PCP - General Internal Medicine 11/15/23 documented as of this encounter
--- OUTSIDE RECORDS SUMMARY | 2025-03-21 17:41 | XMS_ITS | Encounter Summary ---
Author Organization [facility] tem Address [id number] [address] [place] [address] Care Team Providers Care Nail Specialist Name Role Phone Leeann Marshall NURSING PROGRAM MANAGER-JACK PRIZER Primary Care Provider Encounter Details Date Type Department Care Team (Late Contact Info) Description 05/18/2022 Orders Only [facility] Internal Medicine - Family Medicine [address] [place] [address] Tom Pires, [address] [place] [address] Type 2 diabetes mellitus without complication, with long-term current use of insulin ([facility]) (Primary Dx) Social History Tobacco Use Types [...] Encounters Date Type Department Care Team (Late Contact Info) Description 06/19/2025 10:20 AM EDT Office Visit [facility] Internal Medicine/Kayden Morse MD [address] [facility] [address] [place] [address] Leeann Marshall APRN-QI [address] [facility] [address] [place] [address] 07/22/2025 11:00 AM EST Office Visit [facility], A Department of [facility] [address] [facility] [address] [place] [address] Alea Mckenzie MD [address] [facility] [place] [address] 12/14/2025 3:15 PM EDT Office Visit [facility] [address] [place] [address] [address] [facility] [place] [phone] Nathan Blankenship MD [address] [place] [address] documented as of this encounter Visit Diagnoses Diagnosis Type 2 diabetes mellitus without complication, with long-term current use of insulin ([facility])- Primary documented in this encounter Care Teams Nail Specialist Relationship Specialty Start Date End Date Leeann Marshall APRN-CNP [address] [facility] [address] [place], [place] [phone] PCP - General Internal Medicine 11/15/23 documented as of this encounter
--- OUTSIDE RECORDS SUMMARY | 2025-03-21 17:41 | XMS_ITS | Encounter Summary ---
Author Organization [facility] Sys tem Address [id number] [address] [place] [address] Care Team Providers Care Ladle Pourer Name Role Phone Leeann Marshall BROACHING MACHINE SET UP OPERATOR-ELECTRICAL HARDWARE ENGINEER Primary Care Provider [phone] Encounter Details Date Type Department Care Team (Late st Contact Info) Description 06/29/2022 Telephone [facility] Internal Medicine - Family Medicine [address] [place] [address] Mumtaz Pires, [address] [place] [address] Social History Tobacco Use Types Packs/Day Years Used Date Smoking Tobacco: Never Smokeless Tobacco: Never Alcohol Use Standard Drinks/Week Comments No 0 (1 standard drink = 0.6 oz pur e alcohol) PHQ-2 Answer Date Recorded Total Score 17 06/27/2022 Childcare Answer Date Recorded Childcare Unknown 02/12/2019 Employment Answer Date Recorded Employment Unknown 02/12/2019 Purpose - Life Answer Date Recorded Purpose and direction in life Unknown Sex and Gender Information Value Date Recorded Sex Assigned at Not on file Legal Sex Male 11:45 AM EDT Gender Identity Not on file Sexual Orientation Not on file COVID-19 Exposure Response Date Recorded In the last month, have you been in contact with someone who was confirmed or suspected to have Coronavirus / COVID-19? No / Unsure 06/26/2022 8:10 AM EDT documented as of this encounter Miscellaneous Notes * Telephone Encounter - Farhana Huitron - 06/29/2022 2:09 PM EDT called wanting an [facility]in[facility] for mumtaz. documented in this encounter Plan of Treatment Upcoming Encounters Date Type Department Care Team (Late st Contact Info) Description 06/19/2025 10:20 AM EDT Office Visit [facility] Internal Medicine/Kayden Morse MD [address] [facility] [address] [place] [address] Leeann Marshall APRN-ELECTRICAL HARDWARE ENGINEER [address] [facility] [address] [place] [address] 07/22/2025 11:00 AM EST Office Visit [facility] Adult Endocrinology, A Department of [facility] [address] [facility] [address] [place] [address] Alea Mckenzie MD [address] [facility] [place] [address] 12/14/2025 3:15 PM EDT Office Visit [facility] [address] [place] [address] [address] [facility] [place] [place] [address] Nathan Blankenship MD [address] [place] [address] documented as of this encounter Visit Diagnoses Not on filedocumented in this encounter Additional Health Concerns Assessment Noted Time PHQ-9 Depression Total Score: 17 022 10:18 AM EDT documented as of this encounter Care Teams Ladle Pourer Relationship Specialty Start Date End Date Leeann Marshall APRN-ELECTRICAL HARDWARE ENGINEER [address] [facility] [address] [place] [address] PCP - General Internal Medicine 11/15/23 documented as of this encounter
--- OUTSIDE RECORDS SUMMARY | 2025-03-21 17:41 | XMS_ITS | Encounter Summary ---
Author Organization [facility] [employer] [facility] [employer] Address [id number] [address] [place] [address] Care Team Providers Care Vp Celebrity Services Name Role Phone Leeann Marshall CHOIR TEACHER-COMPRESS ENGINEER Primary Care Provider Encounter Details Date Type Department Care Team (Late st Contact Info) Description 06/19/2022 [facility]phone [facility] Medicine [address] [place] [address] Joyce Jeong MA Social History Tobacco Use [...] Telephone Encounter - Joyce Jeong MA - 06/19/2022 4:50 PM EDT Patient called stating his blood sugar has been running in the 200's, and was 291 this morning. He said he has been walking and watching his diet and wanted to know if there's something else he should be doing or if changes should be made to his insulin. He is now taking 60mg of insulin. * Telephone Encounter - Tom Pires DO - 06/19/2022 4:50 PM EDT We will discuss at his appointment next week after he gets his lab work done. * Telephone Encounter - Joyce Jeong MA - 06/19/2022 4:50 PM EDT Tried calling patient. No answer and mailbox was full so could not leave message. * Telephone Encounter - Joyce Jeong MA - 06/19/2022 4:50 PM EDT Called patient. No answer and unable to leave a message. He has an upcoming appointment. documented in this encounter Plan of Treatment Upcoming Encounters Date Type Department Care Team (Late st Contact Info) Description 06/19/2025 10:20 AM EDT Office Visit [facility] Internal Medicine/Kayden Morse MD [address] [facility] [address] [place] [address] Leeann Marshall APRN-COMPRESS ENGINEER [address] [facility] [address] [place] [address] 07/22/2025 11:00 AM EST Office Visit [facility] Adult Endocrinology, A Department of [facility] [address] [place] [phone] Alea Mckenzie MD [address] [place] [address] 12/14/2025 3:15 PM EDT Office Visit [facility] [address] [place] [address] [place] [address] [address] Nathan Blankenship MD [facility] [place] [place], [place] [id number] documented as of this encounter Visit Diagnoses Not on filedocumented in this encounter Care Teams Vp Celebrity Services Relationship Specialty Start Date End Date Leeann Marshall APRN-COMPRESS ENGINEER [address] [place] [address] [place] [address] PCP - General Internal Medicine 11/15/23 documented as of this encounter
--- OUTSIDE RECORDS SUMMARY | 2025-03-21 17:41 | XMS_ITS | Encounter Summary ---
Author Organization [facility] tem Address [facility] [place]-[id number] [address] [place] [address] Care Team Providers Care Bottle Packer Name Role Phone Leeann Marshall WOOL WASHER FEEDER-TATTOO IDENTIFIER Primary Care Provider Encounter Details Date Type Department Care Team (Late st Contact Info) Description 06/22/2023 Orders Only [facility] Internal Medicine - Family Medicine [address] [place] [address] Tom Pires, DO [address] [place] [address] Salmonella enteritis (Primary Dx) Social History Tobacco Use Types [...] often do you attend chur ch or yazidism services? More than 4 times per year 04/17/2023 Do you belong to any clubs o r organizations such as temple groups, unions, fraternal or athletic groups, or [...] PHQ-2 Answer Date Recorded Total Score 0 06/11/2023 [facility] [place] of Occupat ional Health - Occupational Stress [...] [facility] Internal Medicine/Kayden Morse MD [address] [facility] [address] [place] [address] Leeann Marshall APRN-QI [address] [facility] [address] [place] [address] 07/22/2025 11:00 AM EST Office Visit [facility], A Department of [facility] [address] [facility] [address] [place] [address] Alea Mckenzie MD [address] [facility] [place] [address] 12/14/2025 3:15 PM EDT Office Visit [facility] [address] [facility] [place] [address] Nathan Blankenship MD [address] [place] [address] documented as of this encounter Visit Diagnoses Diagnosis Salmonella enteritis- Primary Salmonella gastroenteritis documented in this encounter Additional Health Concerns Assessment Noted Time PHQ-9 Depression Total Score: 0 06/11/20 23 12:07 PM EDT documented as of this encounter Care Teams Bottle Packer Relationship Specialty Start Date End Date Leeann Marshall APRN-CNP [address] [facility] [address] [place] [address] PCP - General Internal Medicine 11/15/23 documented as of this encounter
--- OUTSIDE RECORDS SUMMARY | 2025-03-21 17:41 | XMS_ITS | Encounter Summary ---
Author Organization [facility] tem Address [facility] [place]-[id number] [address] [place] [address] Care Team Providers Care Parcel Carrier Name Role Phone Leeann Marshall FINISHER SCREWDOWN-JIG BORE TOOL MAKER Primary Care Provider [phone] Encounter Details Date Type Department Care Team (Late st Contact Info) Description 06/21/2022 Telephone [facility] Internal Medicine - Family Medicine [address] [place] [address] Tom Pires, [address] [place] [address] Social History Tobacco Use Types Packs/Day Years [...] * Telephone Encounter - Farhana Huitron - 06/21/2022 3:31 PM EDT Patient requesting referral to an endocrinologists documented in this encounter Plan of Treatment Upcoming Encounters Date Type Department Care Team (Late st Contact Info) Description 06/19/2025 10:20 AM EDT Office Visit [facility] Internal Medicine/Kayden Morse MD [address] [facility] [address] [place] [address] Leeann Marshall APRN-CNP [address] [facility] [address] [place] [address] 07/22/2025 11:00 AM EST Office Visit [facility], A Department of [facility] [address] [facility] [address] [place] [phone] Alea Mckenzie MD [address] [facility] [place] [address] 12/14/2025 3:15 PM EDT Office Visit [facility] [address] [place] [address] Nathan Blankenship MD [address] [place] [address] documented as of this encounter Visit Diagnoses Not on filedocumented in this encounter Care Teams Parcel Carrier Relationship Specialty Start Date End Date Leeann Marshall APRN-CNP [address] [facility] [address] [place] [address] PCP - General Internal Medicine 11/15/23 documented as of this encounter
--- OUTSIDE RECORDS SUMMARY | 2025-03-21 17:41 | XMS_ITS | Encounter Summary ---
Author Organization [facility] Sys tem Address [facility] [place]-[id number] [address] [place] [address] Care Team Providers Care Space Operations Officer Name Role Phone Leeann Marshall NETWORK OPERATIONS CENTER ENGINEER-LOCOMOTIVE LUBRICATING SYSTEMS CLERK Primary Care Provider Encounter Details Date Type Department Care Team (Late st Contact Info) Description 09/07/2022 Orders Only [facility] Internal Medicine - Family Medicine [address] [place] [address] Tom Pires, [address] [place] [address] Type 2 diabetes mellitus with diabetic peripheral angiopathy without gangrene, with long-term current use of insulin ([facility]) (Primary Dx); Type 2 diabetes mellitus without complication, with long-term current use of insulin ([facility]) Social History Tobacco Use Types Packs/Day Years [...] have Coronavirus / COVID-19? No / Unsure 09/05/2022 8:39 AM EST documented as of this encounter Plan of Treatment Upcoming Encounters Date Type Department Care Team (Late st Contact Info) Description 06/19/2025 10:20 AM EDT Office Visit [facility] Internal Medicine/Kayden Morse MD [address] [facility] [address] [place] [address] Leeann Marshall APRN-CNP [address] [facility] [address] [place] [address] 07/22/2025 11:00 AM EST Office Visit [facility] Adult Endocr[facility]ology, A Department of [facility] [address] [facility] [address] [place] [address] Alea Mckenzie MD [address] [facility] [place] [address] 12/14/2025 3:15 PM EDT Office Visit [facility] [address] [place] [address] [address] [facility] [place] [address] Nathan Blankenship MD [address] [place] [address] documented as of this encounter Visit Diagnoses Diagnosis Type 2 diabetes mellitus with diabetic peripheral angiopathy without gangrene, with long-term current use of insulin ([facility])- Primary Type 2 diabetes mellitus without complication, with long-term current use of insulin ([facility]) documented in this encounter Additional Health Concerns Assessment Noted Time PHQ-9 Depression Total Score: 17 022 10:18 AM EDT documented as of this encounter Care Teams Space Operations Officer Relationship Specialty Start Date End Date Leeann Marshall APRN-LOCOMOTIVE LUBRICATING SYSTEMS CLERK [address] [facility] [address] [place] [address] PCP - General Internal Medicine 11/15/23 documented as of this encounter
--- OUTSIDE RECORDS SUMMARY | 2025-03-21 17:41 | XMS_ITS | Encounter Summary ---
Author Organization [facility] tem Address [facility]-[id number] [address] [place] [address] Care Team Providers Care Truck Terminal Manager Name Role Phone Leeann Marshall MACHINE OPERATOR SLITTER TECHNICIAN-DONOR SUPPORT TECHNICIAN Primary Care Provider [phone] Encounter Details Date Type Department Care Team (Late st Contact Info) Description 07/13/2023 Orders Only [facility] Internal Medicine - Family Medicine [address] [place] [address] Tom Pires, [address] [place] [address] Type 2 diabetes mellitus with diabetic peripheral angiopathy without gangrene, with long-term current use of insulin ([facility]) Social History Tobacco Use Types Packs/Day Years [...] How often do you attend chur or muslim services? More than 4 times per year 04/17/2023 Do you belong to any clubs o r organizations such as sabianist groups, unions, fraternal or athletic groups, or [...] Answer Date Recorded Total Score 0 06/11/2023 [facility] of Occupat ional Health - Occupational [...] Recorded Do you need help finding a [facility] career [facility] and/or a training program? [...] Description 06/19/2025 10:20 AM EDT Office Visit [facility] Internal Medicine/Kayden Morse MD [address] [facility] [address] [place] [address] Leeann Marshall APRN-CNP [address] [facility] [address] [place] [address] 07/22/2025 11:00 AM EST Office Visit [facility] Adult Endocrinology, A Department of [facility] [address] [facility] [address] [place] [address] Alea Mckenzie MD [address] [facility] [place] [address] 12/14/2025 3:15 PM EDT [facility] [address] [place] [address] [place] [address] Nathan Blankenship MD [address] [place] [address] documented as of this encounter Visit Diagnoses Diagnosis Type 2 diabetes mellitus with diabetic peripheral angiopathy without gangrene, with long-term current use of insulin ([facility]) documented in this encounter Additional Health Concerns Assessment Noted Time PHQ-9 Depression Total Score: 0 06/11/20 23 12:07 PM EDT documented as of this encounter Care Teams Truck Terminal Manager Relationship Specialty Start Date End Date Leeann Marshall APRN-CNP [address] [facility] [address] [address] PCP - General Internal Medicine 11/15/23 documented as of this encounter
--- OUTSIDE RECORDS SUMMARY | 2025-03-21 17:41 | XMS_ITS | Encounter Summary ---
Author Organization [facility] Address [address] [place] [address] Care Team Providers Care Division Operations Specialist Name Role Phone Tom Pires Primary Care Provider Tom Gottlieb MD Unavailable Source Comments In the event this information is protected by the Federal Confidentiality of Alcohol and Drug AbusePatient Records regulations: The Federal rules restrict any use of the information to criminally investigate or prosecute any alcohol or drug abuse patient.[facility] Encounter Details Date Type Department Care Team (Late st Contact Info) Description 03/14/2021 Get Medical Advice [facility] Speech Therapy [address] [place] [address] Angie Pena, [facility]-PROCESSING [facility]OC[facility] [address] [place] [address] RE: Upcoming Appointment Question Social History Tobacco Use Types Packs/Day [...] N ot on file 08/09/2020 Data from: https://www.neighborhoodatlas.medicine.[facility].edu/. 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 No / Unsure 03/14/2021 9:18 AM EDT documented as of this encounter Functional Status * Are you deaf or do you have serious difficulty hearing? Answer Date of Assessment Author No 04/13/2020 3:11 PM EDT Temitope Washburn APRN.SHELL TRIM TOOL SETTER * Are you blind or do you have serious difficulty seeing, even when wearing glasses? Answer Date of Assessment Author No 04/13/2020 3:11 PM EDT Temitope Washburn APRN.SHELL TRIM TOOL SETTER * Do you have serious difficulty walking or climbing stairs? Answer Date of Assessment Author No 04/13/2020 3:11 PM EDT Temitope Washburn APRN.SHELL TRIM TOOL SETTER * Do you have difficulty dressing or bathing? Answer Date of Assessment Author No 04/13/2020 3:11 PM EDT Temitope Washburn APRN.SHELL TRIM TOOL SETTER * Because of a physical, mental, or emotional condition, do you have difficulty doing errands alone such as visiting a doctor's office or shopping? Answer Date of Assessment Author No 04/13/2020 3:11 PM EDT Temitope Washburn APRN.SHELL TRIM TOOL SETTER documented as of this encounter Mental Status * Because of a physical, mental, or emotional condition, do you have serious difficulty concentrating, remembering, or making decisions? Answer Entry Date Author No 04/13/2020 3:11 PM EDT Temitope Washburn APRN.SHELL TRIM TOOL SETTER documented in this encounter Plan of Treatment Upcoming Encounters Date Type Department Care Team (Late st Contact Info) Description 05/14/2025 1:40 PM EDT Office Visit Neurology [address] [place] [address] [place] [address] [place] [address] memory concerns documented as of this encounter Visit Diagnoses Not on filedocumented in this encounter Care Teams Division Operations Specialist Relationship Specialty Start Date End Date Tom Pires [address] [place] [address] PCP - General 12/12/00 Tom Gottlieb MD [address] [place] [address] Primary Staff Physician Cardiology 11/19/18 documented as of this encounter
--- OUTSIDE RECORDS SUMMARY | 2025-03-21 17:41 | XMS_ITS | Encounter Summary ---
Author Organization [facility] Address [address] [place] [address] Care Team Providers Care Child And Family Services Specialist Name Role Phone Tom Pires Primary Care Provider [phone] Tom Gottlieb MD Unavailable [phone] Source Comments In the event this information is protected by the Federal Confidentiality of Alcohol and Drug AbusePatient Records regulations: The Federal rules restrict any use of the information to criminally investigate or prosecute any alcohol or drug abuse patient.[facility] Encounter Details Date Type Department Care Team (Late st Contact Info) Description 10/25/2020 Get Medical Advice Neurology [address] [place] [address] [place] [address] [place] [address] RE: Upcoming Appointment Question Social History Tobacco [...] N ot on file 08/09/2020 Data from: https://www.neighborhoodatlas.medicine.[facility]/. 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 Answer Date of Assessment Author No 04/13/2020 3:11 PM EDT Temitope Washburn APRN.PRESS OFFBEARER * Are you blind or do you have serious difficulty seeing, even when wearing glasses? Answer Date of Assessment Author No 04/13/2020 3:11 PM EDT Temitope Washburn APRN.PRESS OFFBEARER * Do you have serious difficulty walking or climbing stairs? Answer Date of Assessment Author No 04/13/2020 3:11 PM EDT Temitope Washburn APRN.PRESS OFFBEARER * Do you have difficulty dressing or bathing? Answer Date of Assessment Author No 04/13/2020 3:11 PM EDT Temitope Washburn APRN.PRESS OFFBEARER * Because of a physical, mental, or emotional condition, do you have difficulty doing errands alone such as visiting a doctor's office or shopping? Answer Date of Assessment Author No 04/13/2020 3:11 PM EDT Temitope Washburn APRN.PRESS OFFBEARER documented as of this encounter Mental Status * Because of a physical, mental, or emotional condition, do you have serious difficulty concentrating, remembering, or making decisions? Answer Entry Date Author No 04/13/2020 3:11 PM EDT Temitope Washburn APRN.PRESS OFFBEARER documented in this encounter Plan of Treatment Upcoming Encounters Date Type Department Care Team (Late st Contact Info) Description 05/14/2025 1:40 PM EDT Office Visit Neurology [address] [place] [address] [place] [address] [place] [address] memory concerns documented as of this encounter Visit Diagnoses Not on filedocumented in this encounter Care Teams Child And Family Services Specialist Relationship Specialty Start Date End Date Tom Pires [address] [place] [address] PCP - General 12/12/00 Tom Gottlieb MD [address] [place] [address] Primary Staff Physician Cardiology 11/19/18 documented as of this encounter
--- OUTSIDE RECORDS SUMMARY | 2025-03-21 17:41 | XMS_ITS | Encounter Summary ---
Author Organization [facility] [employer] Address [id number] [address] [place] [address] Care Team Providers Care Equity Analyst Name Role Phone Leeann Marshall WHARFINGER CHIEF-SMUTTER Primary Care Provider Encounter Details Date Type Department Care Team (Late st Contact Info) Description 07/18/2022 Telephone [facility] Internal Medicine - Family Medicine [address] [place] [address] Sultana Mauricio CMA Social History Tobacco Use Types Packs/Day [...] have Coronavirus / COVID-19? No / Unsure 07/18/2022 3:36 PM EST documented as of this encounter Miscellaneous Notes * Telephone Encounter - Sultana Mauricio CMA - 07/18/2022 3:59 PM EST Patient called and stated that she would like him to be evaluated at the [facility]. Can you send a referral to [phone] * Telephone Encounter - Tom Pires DO - 07/18/2022 3:59 PM EST A consult request was sent * Telephone Encounter - Arleth Wan CMA - 07/18/2022 3:59 PM EST Spoke with Jaci and she understands documented in this encounter Plan of Treatment Upcoming Encounters Date Type Department Care Team (Late st Contact Info) Description 06/19/2025 10:20 AM EDT [facility]/Kayden Morse MD [address] [facility] [address] [place] [phone] eLeann Marshall APRN-SMUTTER [address] [facility] [address] [place] [address] 07/22/2025 11:00 AM EST Office Visit [facility] Adult Endocrinology, A Department of [facility] [address] [facility] [address] [place] [phone] Alea Mckenzie MD [address] [facility] [place] [address] 12/14/2025 3:15 PM EDT Office Visit [facility] [address] [place] [address] [address] [facility] [place] [phone] Nathan Blankenship MD [address] [place] [address] documented as of this encounter Visit Diagnoses Not on filedocumented in this encounter Additional Health Concerns Assessment Noted Time PHQ-9 Depression Total Score: 17 022 10:18 AM EDT documented as of this encounter Care Teams Equity Analyst Relationship Specialty Start Date End Date Leeann Marshall APRN-QI [address] [facility] [address] [place] [address] PCP - General Internal Medicine 11/15/23 documented as of this encounter
--- OUTSIDE RECORDS SUMMARY | 2025-03-21 17:41 | XMS_ITS | Encounter Summary ---
Author Organization [facility] Address [address] [place] [address] Care Team Providers Care Casing Trimmer Name Role Phone Tom Pires Primary Care Provider [phone] Tom Gottlieb MD Unavailable [phone] Source Comments In the event this information is protected by the Federal Confidentiality of Alcohol and Drug AbusePatient Records regulations: The Federal rules restrict any use of the information to criminally investigate or prosecute any alcohol or drug abuse patient.[facility] Encounter Details Date Type Department Care Team (Late st Contact Info) Description 03/14/2021 Get Medical Advice Neurology [address] [place] [address] [place] [address] [place] [address] RE: Visit Follow Up Question Social History Tobacco Use Types Packs/Day [...] N ot on file 08/09/2020 Data from: https://www.neighborhoodatlas.medicine.[facility]/. 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 Answer Date of Assessment Author No 04/13/2020 3:11 PM EDT Temitope Washburn APRN.PHYSICAL THERAPIST CLINIC DIRECTOR * Do you have serious difficulty walking or climbing stairs? Answer Date of Assessment Author No 04/13/2020 3:11 PM EDT Temitope Washburn APRN.PHYSICAL THERAPIST CLINIC DIRECTOR * Do you have difficulty dressing or bathing? Answer Date of Assessment Author No 04/13/2020 3:11 PM EDT Temitope Washburn APRN.PHYSICAL THERAPIST CLINIC DIRECTOR * Because of a physical, mental, or emotional condition, do you have difficulty doing errands alone such as visiting a doctor's office or shopping? Answer Date of Assessment Author No 04/13/2020 3:11 PM EDT Temitope Washburn APRN.PHYSICAL THERAPIST CLINIC DIRECTOR documented as of this encounter Mental Status * Because of a physical, mental, or emotional condition, do you have serious difficulty concentrating, remembering, or making decisions? Answer Entry Date Author No 04/13/2020 3:11 PM EDT Temitope Washburn APRN.PHYSICAL THERAPIST CLINIC DIRECTOR documented in this encounter Plan of Treatment Upcoming Encounters Date Type Department Care Team (Late st Contact Info) Description 05/14/2025 1:40 PM EDT Office Visit Neurology [address] [place] [address] [place] [address] [place] [address] memory concerns documented as of this encounter Visit Diagnoses Not on filedocumented in this encounter Care Teams Casing Trimmer Relationship Specialty Start Date End Date Tom Pires [address] [place] [address] PCP - General 12/12/00 Tom Gottlieb MD [address] [place] [address] Primary Staff Physician Cardiology 11/19/18 documented as of this encounter
--- OUTSIDE RECORDS SUMMARY | 2025-03-21 17:41 | XMS_ITS | Encounter Summary ---
Author Organization [facility] Address [address] [place] [address] Care Team Providers Care Crucible Packer Name Role Phone Tom Pires Primary Care Provider [phone] Tom oGttlieb MD Unavailable [phone] Source Comments In the event this information is protected by the Federal Confidentiality of Alcohol and Drug AbusePatient Records regulations: The Federal rules restrict any use of the information to criminally investigate or prosecute any alcohol or drug abuse patient.[facility] Encounter Details Date Type Department Care Team (Late st Contact Info) Description 01/22/2021 Get Medical Advice Neurology [address] [place] [address] [place] [address] [place] [address] RE: Medication Question (Not Renewal) Social History Tobacco Use Types Packs/Day Years [...] N ot on file 08/09/2020 Data from: https://www.neighborhoodatlas.medicine.[facility]/. 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 Answer Date of Assessment Author No 04/13/2020 3:11 PM EDT Temitope Washburn APRN.AWARD MACHINE OPERATOR * Are you blind or do you have serious difficulty seeing, even when wearing glasses? Answer Date of Assessment Author No 04/13/2020 3:11 PM EDT eTmitope Washburn APRN.AWARD MACHINE OPERATOR * Do you have serious difficulty walking or climbing stairs? Answer Date of Assessment Author No 04/13/2020 3:11 PM EDT Temitope Washburn APRN.AWARD MACHINE OPERATOR * Do you have difficulty dressing or bathing? Answer Date of Assessment Author No 04/13/2020 3:11 PM EDT Temitope Washburn APRN.AWARD MACHINE OPERATOR * Because of a physical, mental, or emotional condition, do you have difficulty doing errands alone such as visiting a doctor's office or shopping? Answer Date of Assessment Author No 04/13/2020 3:11 PM EDT Temitope Washburn APRN.AWARD MACHINE OPERATOR documented as of this encounter Mental Status * Because of a physical, mental, or emotional condition, do you have serious difficulty concentrating, remembering, or making decisions? Answer Entry Date Author No 04/13/2020 3:11 PM EDT Temitope Washburn APRN.AWARD MACHINE OPERATOR documented in this encounter Plan of Treatment Upcoming Encounters Date Type Department Care Team (Late st Contact Info) Description 05/14/2025 1:40 PM EDT Office Visit Neurology [address] [place] [address] [place] [id number] [place] [address] memory concerns documented as of this encounter Visit Diagnoses Not on filedocumented in this encounter Care Teams Crucible Packer Relationship Specialty Start Date End Date Tom Pires [address] [place] [address] PCP - General 12/12/00 Tom Gottlieb MD [address] [place] [address] Primary Staff Physician Cardiology 11/19/18 documented as of this encounter
--- OUTSIDE RECORDS SUMMARY | 2025-03-21 17:41 | XMS_ITS | Encounter Summary ---
Author Organization [facility] Address [address] [place] [address] Care Team Providers Care Breaker Boss Name Role Phone Tom Pires Primary Care Provider [phone] Tom Gottlieb MD Unavailable [phone] Source Comments In the event this information is protected by the Federal Confidentiality of Alcohol and Drug AbusePatient Records regulations: The Federal rules restrict any use of the information to criminally investigate or prosecute any alcohol or drug abuse patient.[facility] Encounter Details Date Type Department Care Team (Late st Contact Info) Description 2022 [place] [address] Provider, [facility] Medicare Coverage of Physical Exams Social History Tobacco Use Types Packs/Day Years [...] N ot on file 08/09/2020 Data from: https://www.neighborhoodatlas.medicine.[facility].edu/. 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 Answer Date of Assessment Author No 04/13/2020 3:11 PM EDT Temitope Washburn APRN.BINDING MACHINE OPERATOR * Are you blind or do you have serious difficulty seeing, even when wearing glasses? Answer Date of Assessment Author No 04/13/2020 3:11 PM EDT Temitope Washburn APRN.BINDING MACHINE OPERATOR * Do you have serious difficulty walking or climbing stairs? Answer Date of Assessment Author No 04/13/2020 3:11 PM EDT Temitope Washburn APRN.BINDING MACHINE OPERATOR * Do you have difficulty dressing or bathing? Answer Date of Assessment Author No 04/13/2020 3:11 PM EDT Temitope Washburn APRN.BINDING MACHINE OPERATOR * Because of a physical, mental, or emotional condition, do you have difficulty doing errands alone such as visiting a doctor's office or shopping? Answer Date of Assessment Author No 04/13/2020 3:11 PM EDT Temitope Washburn APRN.BINDING MACHINE OPERATOR documented as of this encounter Mental Status * Because of a physical, mental, or emotional condition, do you have serious difficulty concentrating, remembering, or making decisions? Answer Entry Date Author No 04/13/2020 3:11 PM EDT Temitope Velasquez APRN.BINDING MACHINE OPERATOR documented in this encounter Plan of Treatment Upcoming Encounters Date Type Department Care Team (Late st Contact Info) Description 05/14/2025 1:40 PM EDT Office Visit Neurology [address] [place] [address] [place] [address] [place] [address] memory concerns documented as of this encounter Visit Diagnoses Not on filedocumented in this encounter Care Teams Breaker Boss Relationship Specialty Start Date End Date Tom Pires [address] [place] [address] PCP - General 12/12/00 Tom Gottlieb MD [address] [place] [address] Primary Staff Physician Cardiology 11/19/18 documented as of this encounter
--- OUTSIDE RECORDS SUMMARY | 2025-03-21 17:41 | XMS_ITS | Encounter Summary ---
Author Organization [facility] [employer] s tem Address [id number] [address] [place] [address] Care Team Providers Care Manager Customs Name Role Phone Leeann Marshall UPPER LEATHER CUTTER-NEWSCAST DIRECTOR Primary Care Provider Encounter Details Date Type Department Care Team (Late Contact Info) Description 06/14/2022 Telephone [facility] Internal Medicine - Family Medicine [address] [place] [address] Arleth Wan CMA Social History Tobacco Use Types Packs/Day [...] encounter Miscellaneous Notes * Telephone Encounter - Arleth Wan CMA - 06/14/2022 3:34 PM EDT Jaci called to see if you would do a referral to the [facility] for his uncontrolled Blood Sugars. documented in this encounter Plan of Treatment Upcoming Encounters Date Type Department Care Team (Late st Contact Info) Description 06/19/2025 10:20 AM EDT Office Visit [facility] Internal Medicine/Kayden Morse MD [address] [place] [phone] Leeann Marshall APRN-CNP [address] [facility] [address] [place] [address] 07/22/2025 11:00 AM EST Office Visit [facility] Adult Endocrinology, A Department of [facility] [address] [facility] [address] [place] [phone] Alea Mckenzie MD [address] [facility] [place] [address] 12/14/2025 3:15 PM EDT Office Visit [facility] [address] [place] [address] [place] [address] Nathan Blankenship MD [address] [place] [address] documented as of this encounter Visit Diagnoses Not on filedocumented in this encounter Care Teams Manager Customs Relationship Specialty Start Date End Date Leeann Marshall APRN-CNP [address] [facility] [address] [place] [address] PCP - General Internal Medicine 11/15/23 documented as of this encounter
--- OUTSIDE RECORDS SUMMARY | 2025-03-21 17:41 | XMS_ITS | Encounter Summary ---
Author [facility] [employer] [facility] Address [id number] [address] [place] [address] Care Team Providers Care Esol Teacher Assistant Name Role Phone Leeann Marshall CAREER DEVELOPMENT MANAGER-LEMON GROWER Primary Care Provider Encounter Details Date Type Department Care Team (Late st Contact Info) Description 06/14/2022 Telephone [facility] Internal Medicine - Family Medicine [address] [place] [address] Arleth Wan CMA Social History Tobacco Use [...] Encounter - Arleth Wan CMA - 06/14/2022 12:27 PM EDT Patient called saying he is having a lot of dizziness * Telephone Encounter - Tom Pires DO - 06/14/2022 12:27 PM EDT What does he mean by dizziness? Has he passed out? * Telephone Encounter - Joyce Jeong MA - 06/14/2022 12:27 PM EDT Called patient. No answer and unable to leave message. * Telephone Encounter - Joyce Jeong MA - 06/14/2022 12:27 PM EDT Tried calling patient. No answer and mailbox was full so could not leave message. * Telephone Encounter - Joyce Jeong MA - 06/14/2022 12:27 PM EDT Called patient. No answer and was unable to leave message. He has an upcoming appointment. documented in this encounter Plan of Treatment Upcoming Encounters Date Type Department Care Team (Late st Contact Info) Description 06/19/2025 10:20 AM EDT [facility]/Kayden Morse MD [address] [facility] [address] [place] [phone] Leeann Marshall APRN-LEMON GROWER [address] [facility] [address] [place] [address] 07/22/2025 11:00 AM EST Office Visit [facility] Adult Endocrinology, A Department of [facility] [address] [place] [address] Alea Mckenzie MD [address] [place] [address] 12/14/2025 3:15 PM EDT Office Visit [facility] [address] [place] [address] [place] [address] Nathan Blankenship MD [facility] [place] [address] documented as of this encounter Visit Diagnoses Not on filedocumented in this encounter Care Teams Esol Teacher Assistant Relationship Specialty Start Date End Date Leeann Marshall APRN-LEMON GROWER [address] [place] [address] [place] [address] PCP - General Internal Medicine 11/15/23 documented as of this encounter
--- OUTSIDE RECORDS SUMMARY | 2025-03-21 17:41 | XMS_ITS | Encounter Summary ---
Author Organization [facility] [employer] [facility] tem Address [id number] [address] [place] [address] Care Team Providers Care Underwater Photographer Name Role Phone Leeann Marshall APRN-COAL MILL OPERATOR Primary Care Provider [phone] Reason for Referral * Rehabilitation - Outpatient (Routine) - Closed Specialty Diagnoses / Procedures Referred By Ish narvaez Referred To Contact Rehabilitation Diagnoses Spinal stenosis of lumbar region with neurogenic claudication Low back pain, unspecified Stiffness of unspecified joint, not elsewhere classified Muscle weakness (generalized) Other abnormalities of gait and mobility Tom Pires DO [address] [place] [address] Phone: tel: fax: [facility] [address] [place] [phone] Phone: tel: fax: Referral ID Status Reason Start Date Expiration Date V isits Requested Visits Authorized [id number] Closed Specialty Services Required 08/08/2023 08/07/2024 12 12 Encounter Details Date Type Department Care Team (Late st Contact Info) Description 08/08/2023 Orders Only [facility] Internal Medicine - Family Medicine [address] [place] [address] Tom Pires DO [address] [place] [address] Spinal stenosis of lumbar region with neurogenic claudication (Primary Dx) Social History Tobacco Use Types [...] week 04/17/2023 How often do you attend [facility] or yazidi services? More than 4 times per year [...] Answer Date Recorded Total Score 0 07/18/2023 [facility] of Occupat ional Health - Occupational Stress [...] Recorded Do you need help finding a [facility] center and/or a training program? No 04/17/2023 [...] 10:20 AM EDT Office Visit [facility] Internal Medicine/Kayden Morse MD [address] [place] [phone] Leeann Marshall APRN-QI [address] [facility] [address] [place], [place] [phone] 07/22/2025 11:00 AM EST [facility] Department of [facility] [address] [facility] [address] [place] [address] Alea Mckenzie MD [address] [facility] [place] [address] 12/14/2025 3:15 PM EDT Office Visit [facility] [address] [place] [address] [place] [address] [place] [phone] Nathan Blankenship MD [address] [place] [address] Scheduled Referrals Name Type Priority Associated Diagnoses Orde r Schedule Ambulatory referral to Physical Therapy Outpatient Referral Routine Spinal stenosis of lumbar region with neurogenic claudication 1 Occurrences starting 08/08/2023 until 08/08/2024 documented as of this encounter Visit Diagnoses Diagnosis Spinal stenosis of lumbar region with neurogenic claudication- Primary documented in this encounter Additional Health Concerns Assessment Noted Time PHQ-9 Depression Total Score: 0 07/18/20 23 1:57 PM EST documented as of this encounter Care Teams Underwater Photographer Relationship Specialty Start Date End Date Leeann Marshall APRN-COAL MILL OPERATOR [address] [facility] [address] [place] [address] PCP - General Internal Medicine 11/15/23 documented as of this encounter
--- OUTSIDE RECORDS SUMMARY | 2025-03-21 17:41 | XMS_ITS | Encounter Summary ---
Author Organization [employer] [facility] tem Address [id number] [address] [place] [address] Care Team Providers Care Sandwich Maker Name Role Phone Leeann Marshall SONIDO-RESIDENCE HALL DIRECTOR Primary Care Provider [phone] Reason for Visit * Reason Comments Med Refill Encounter Details Date Type Department Care Team (Late st Contact Info) Description 06/21/2023 Refill [facility] - Medical Oncology [address] [place] [phone] Tom Pires, DO [address] [place] [address] Essential (primary) hypertension Social History Tobacco Use Types Packs/Day Years [...] often do you attend chur ch or mosque services? More than 4 times per year 04/17/2023 Do you belong to any clubs o r organizations such as jainism groups, unions, fraternal or athletic groups, or [...] Answer Date Recorded Total Score 0 06/11/2023 [facility] of Occupat ional Health - Occupational Stress [...] Recorded Do you need help finding a [facility] center and/or a training program? No [...] [facility] Internal Medicine/Kayden Morse MD [address] [place] [address] Leeann Marshall APRN-CNP [address] [facility] [address] [place] [address] 07/22/2025 11:00 AM EST Office Visit [facility] Adult Endocrinology, A Department of [facility] [address] [facility] [address] [place] [address] Alea Mckenzie MD [address] [facility] [place] [address] 12/14/2025 3:15 PM EDT Office Visit [facility] [address] [place] [address] [address] [facility] [place] [phone] Nathan Blankenship MD [address] [place] [address] documented as of this encounter Visit Diagnoses Diagnosis Essential (primary) hypertension Unspecified essential hypertension documented in this encounter Additional Health Concerns Assessment Noted Time PHQ-9 Depression Total Score: 0 06/11/20 23 12:07 PM EDT documented as of this encounter Care Teams Sandwich Maker Relationship Specialty Start Date End Date Leeann Marshall APRN-CNP [address] [facility] [address] [place] [address] PCP - General Internal Medicine 11/15/23 documented as of this encounter
--- OUTSIDE RECORDS SUMMARY | 2025-03-21 17:41 | XMS_ITS | Encounter Summary ---
Author Organization [facility] [employer] s tem Address [facility]-[id number] [address] [place] [address] Care Team Providers Care Rounder Hand Name Role Phone Rolando Leeann LEARNING SPECIALIST-DIRECTOR OF REAL ESTATE Primary Care Provider Encounter Details Date Type Department Care Team (Late st Contact Info) Description 07/13/2023 Telephone [facility] Internal Medicine - Family Medicine [address] [place] [address] Arleth Wan CMA Social History Tobacco Use [...] often do you attend chur ch or adventism services? More than 4 times per year 04/17/2023 Do you belong to any clubs o r organizations such as episcopal groups, unions, fraternal or athletic groups, or [...] Answer Date Recorded Total Score 0 06/11/2023 [facility] ional [facility] - Occupational [...] Telephone Encounter - Arleth Wan CMA - 07/13/2023 9:54 AM EST Jaci called and said since Tom had his gastro problems and an infection in his hand his blood sugars have been running high. She wants to know if she needs to bring him in here or take him to the Endo. I printed his Dexcom results and scanned them in his chart for you to review. * Telephone Encounter - Tom Pires DO - 07/13/2023 9:54 AM EST I reviewed his CGM download. Yes, the blood sugars do look terrible. He is spending most of his time above targeted range. I would start by increasing the Toujeo dose to 60 units once daily. He should continue his sliding scale the same. * Telephone Encounter - Sultana Mauricio CMA - 07/13/2023 9:54 AM EST Jaci was informed but wanted to schedule an apt documented in this encounter Plan of Treatment Upcoming Encounters Date Type Department Care Team (Late st Contact Info) Description 06/19/2025 10:20 AM EDT [facility]/Kayden Morse MD [address] [place] [phone] Leeann Marshall, LEARNING SPECIALIST-DIRECTOR OF REAL ESTATE [address] [facility] [address] [place] [address] 07/22/2025 11:00 AM EST [facility], A Department of [facility] [address] [facility] [address] [place] [phone] Alea Mckenzie MD [address] [place] [address] 12/14/2025 3:15 PM EDT Office Visit [facility] [address] [place] [address] [address] [facility] [place] [phone] Nathan Blankenship MD [address] [place] [address] documented as of this encounter Visit Diagnoses Not on filedocumented in this encounter Additional Health Concerns Assessment Noted Time PHQ-9 Depression Total Score: 0 06/11/20 23 12:07 PM EDT documented as of this encounter Care Teams Rounder Hand Relationship Specialty Start Date End Date Leeann Marshall APRN-QI [address] [facility] [address] [place] [address] PCP - General Internal Medicine 11/15/23 documented as of this encounter
--- OUTSIDE RECORDS SUMMARY | 2025-03-21 17:41 | XMS_ITS | Encounter Summary ---
Author Organization [employer] [facility] tem Address [id number] [address] [place] [address] Care Team Providers Care Doll Repairer Name Role Phone Leeann Marshall APRN-TRADE MARK ATTORNEY Primary Care Provider [phone] Reason for Referral * Consultation (Routine) - Closed Specialty Diagnoses / Procedures Referred By Ish narvaez Referred To Contact Endocrinology, Diabetes & Metabolism Diagnoses Type 2 diabetes mellitus with diabetic peripheral angiopathy without gangrene, with long-term current use of insulin ([facility]) Tom Pires DO [address] [place] [address] Phone: tel: fax: Tom Gilmore MD [address] [facility] [place] [address] Phone: tel: fax: Referral ID Status Reason Start Date Expiration Date V isits Requested Visits Authorized [id number] Closed Specialty Services Required 07/18/2022 07/18/2023 1 1 Encounter Details Date Type Department Care Team (Late st Contact Info) Description 07/18/2022 Orders Only [facility] Internal Medicine - Family Medicine [address] [place] [address] Tom Pires DO [address] [place] [address] Type 2 diabetes mellitus with diabetic peripheral angiopathy without gangrene, with long-term current use of insulin ([facility]) (Primary Dx) Social History Tobacco [...] PM EST documented as of this encounter Plan of Treatment Upcoming Encounters Date Type Department Care Team (Late st Contact Info) Description 06/19/2025 10:20 AM EDT [facility] Internal [facility]/Kayden Morse MD [address] [facility] [address] [place] [phone] Leeann Marshall APRN-TRADE MARK ATTORNEY [address] [facility] [address] [place] [address] 07/22/2025 11:00 AM EST Office Visit [facility], A Department of [facility] [address] [place] [phone] Alea Mckenzie MD [address] [facility] [place] [address] 12/14/2025 3:15 PM EDT Office Visit [facility] [address] [facility] [place] [address] Nathan Blankenship MD [facility] [place] [address] Scheduled Referrals Name Type Priority Associated Diagnoses Order Schedule Ambulatory referral to Endocrinology Outpatient Referral Routine Type 2 diabetes mellitus with diabetic peripheral angiopathy without gangrene, with long-term current use of insulin ([facility]) 1 Occurrences starting 07/18/2022 until 07/18/2023 documented as of this encounter Visit Diagnoses Diagnosis Type 2 diabetes mellitus with diabetic peripheral angiopathy without gangrene, with long-term current use of insulin ([facility])- Primary documented in this encounter Additional Health Concerns Assessment Noted Time PHQ-9 Depression Total Score: 17 022 10:18 AM EDT documented as of this encounter Care Teams Doll Repairer Relationship Specialty Start Date End Date Leeann Marshall APRN-TRADE MARK ATTORNEY [facility] [facility] [address] [place] [address] PCP - General Internal Medicine 11/15/23 documented as of this encounter
--- OUTSIDE RECORDS SUMMARY | 2025-03-21 17:41 | XMS_ITS | Encounter Summary ---
Author Organization 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 Unable to assess 05/20/2020 1:32 PM EDT documented as of this encounter Functional Status * Are you deaf or do you have serious difficulty hearing? Answer Date of Assessment Author No 04/13/2020 3:11 PM EDT Temitope Washburn APRN.X RAY EXAMINER OF AIRCRAFT * Are you blind or do you have serious difficulty seeing, even when wearing glasses? Answer Date of Assessment Author No 04/13/2020 3:11 PM EDT Temitope Washburn APRN.X RAY EXAMINER OF AIRCRAFT * Do you have serious difficulty walking or climbing stairs? Answer Date of Assessment Author No 04/13/2020 3:11 PM EDT Temitope Washburn APRN.X RAY EXAMINER OF AIRCRAFT * Do you have difficulty dressing or bathing? Answer Date of Assessment Author No 04/13/2020 3:11 PM EDT Temitope Washburn APRN.X RAY EXAMINER OF AIRCRAFT * Because of a physical, mental, or emotional condition, do you have difficulty doing errands alone such as visiting a doctor's office or shopping? Answer Date of Assessment Author No 04/13/2020 3:11 PM EDT Temitope Washburn APRN.X RAY EXAMINER OF AIRCRAFT documented as of this encounter Mental Status * Because of a physical, mental, or emotional condition, do you have serious difficulty concentrating, remembering, or making decisions? Answer Entry Date Author No 04/13/2020 3:11 PM EDT Temitope Washburn APRN.X RAY EXAMINER OF AIRCRAFT documented in this encounter Plan of Treatment Upcoming Encounters Date Type Department Care Team (Late st Contact Info) Description 05/14/2025 1:40 PM EDT Office Visit Neurology [address] [place] [address] [place] [address] [place] [address] memory concerns documented as of this encounter Visit Diagnoses Not on filedocumented in this encounter Care Teams Correctional Guard Relationship Specialty Start Date End Date Tom Pires [address] [place] [address] PCP - General 12/12/00 Tom Gottlieb MD [address] [place] [address] Primary Staff Physician Cardiology 11/19/18 documented as of this encounter
--- OUTSIDE RECORDS SUMMARY | 2025-03-21 17:42 | XMS_ITS | Encounter Summary ---
Author Organization [employer] Address [facility]-[id number] [address] [place] [address] Care Team Providers Care Web Portal Developer Name Role Phone Leeann Marshall LITHOGRAPH PRESS OPERATOR TINWARE-CARPENTRY SPECIALIST Primary Care Provider [phone] Encounter Details Date Type Department Care Team (Late Contact Info) Description 03/26/2023 Orders Only [facility] Internal Medicine - Family Medicine [address] [place] [address] Tom Pires, [address] [place] [address] Chronic diastolic CHF (congestive heart failure) ([facility]) Social History Tobacco Use Types Packs/Day Years Used Date Smoking Tobacco: Never Smokeless Tobacco: Never Alcohol Use Standard Drinks/Week Comments No 0 (1 standard drink = 0.6 oz pur e alcohol) PHQ-2 Answer Date Recorded Total Score 0 03/07/2023 Childcare Answer Date Recorded Childcare Unknown 02/12/2019 [...] Visit [facility] Internal Medicine/Kayden Morse MD [address] [facility] [address] [place] [phone] Leeann Marshall APRN-CNP [address] [facility] [address] [place] [address] 07/22/2025 11:00 AM EST Office Visit [facility], A Department of [facility] [address] [facility] [address] [place] [address] Alea Mckenzie MD [address] [facility] [place] [address] 12/14/2025 3:15 PM EDT Office Visit [facility] [address] [place] [address] A [facility] [place] [phone] Nathan Blankenship MD [address] [place] [address] documented as of this encounter Visit Diagnoses Diagnosis Chronic diastolic CHF (congestive heart failure) ([facility]-HCC) documented in this encounter Additional Health Concerns Assessment Noted Time PHQ-9 Depression Total Score: 0 03/07/20 23 1:33 PM EDT documented as of this encounter Care Teams Web Portal Developer Relationship Specialty Start Date End Date Leeann Marshall APRN-CNP [address] [facility] [address] [address] PCP - General Internal Medicine 11/15/23 documented as of this encounter
--- OUTSIDE RECORDS SUMMARY | 2025-03-21 17:42 | XMS_ITS | Encounter Summary ---
Author Organization [facility] [email or web address] Sys tem Address [facility] [place] [id number] [address] [place] [address] Care Team Providers Care Revenue Officer Name Role Phone Leeann Marshall CLIENT SUPPORT COORDINATOR-VETERINARY HOSPITAL SHIFT LEAD Primary Care Provider Encounter Details Date Type Department Care Team (Late st Contact Info) Description 08/25/2024 Telephone [facility] Internal Medicine/Kayden Morse MD [address] [place] [phone] Cony Bahena, TAYLOR Social History Tobacco Use Types Packs/Day [...] often do you attend chur ch or sikh services? More than 4 times per year 04/17/2023 Do you belong to any clubs o r organizations such as restorationist groups, unions, fraternal or athletic groups, or [...] PHQ-2 Answer Date Recorded Total Score 0 06/10/2024 [facility] of Occupat ional Health - Occupational Stress [...] Recorded Do you need help finding a [facility] career center and/or a training program? No 04/17/2023 Hunger Screening Answer Date Recorded Within the past 12 months we worried whether our food would run out before we got money to buy more. Never True 08/11/2024 Within the past 12 months th e food we bought just didn't last and we didn't have money to get more. Never True 08/11/2024 Purpose - Life Answer Date Recorded I have a purpose and direction in my life. Somew hat Agree 04/17/2023 Sex and Gender Information Value Date Recorded Sex Assigned at Not on file Legal Sex Male 11:45 AM EDT Gender Identity Not on file Sexual Orientation Not on file documented as of this encounter Miscellaneous Notes * Telephone Encounter - Cony Bahena CMA - 08/25/2024 4:01 PM EST Pt called said he is having a lot of edema in his legs/feet. * Telephone Encounter - TERRY Monteiro - 08/25/2024 4:01 PM EST He will need an appt. * Telephone Encounter - Joyce Sethi - 08/25/2024 4:01 PM EST Appt 09/29/24 documented in this encounter Plan of Treatment Upcoming Encounters Date Type Department Care Team (Late st Contact Info) Description 06/19/2025 10:20 AM EDT Office Visit [facility] Internal Medicine/Kayden Morse MD [address] [place] [phone] Leeann Marshall APRN-CNP [address] [facility] [address] [place] [address] 07/22/2025 11:00 AM EST Office Visit [facility], A Department of [facility] [address] [place] [address] Alea Mckenzie MD [address] [place] [address] 12/14/2025 3:15 PM EDT Office Visit [facility] [address] [place] [address] [place] [address] Nathan Blankenship MD [address] [place] [address] documented as of this encounter Goals Goal Patient Goal Type Associated Problems Recent Progress Patient-Stated? Author Return home General Yes Adeline Tran, RN Note: Evaluation of progress towards goal: Plan to return home with spouse. documented as of this encounter Visit Diagnoses Not on filedocumented in this encounter Additional Health Concerns Assessment Noted Time PHQ-9 Depression Total Score: 0 06/10/20 24 11:27 AM EDT documented as of this encounter Care Teams Revenue Officer Relationship Specialty Start Date End Date Leeann Marshall APRN-QI [address] [place] [address] [address] [place] [address] PCP - General Internal Medicine 11/15/23 documented as of this encounter
--- OUTSIDE RECORDS SUMMARY | 2025-03-21 17:42 | XMS_ITS | Encounter Summary ---
Author Organization [employer] s tem Address [facility] [id number] [address] [place] [address] Care Team Providers Care Equipment Or Machinery Cleaner Name Role Phone Leeann Marshall AUTO BRAKE TECHNICIAN-REGISTRY RN Primary Care Provider [phone] Encounter Details Date Type Department Care Team (Late Contact Info) Description 01/16/2023 Telephone [facility] Internal Medicine - Family Medicine [address] [place] [address] Tom Pires, [address] [place] [address] Social History Tobacco Use Types Packs/Day Years Used Date Smoking Tobacco: Never Smokeless Tobacco: Never Alcohol Use Standard Drinks/Week Comments No 0 (1 standard drink = 0.6 oz pur e alcohol) PHQ-2 Answer Date Recorded Total Score 1 01/15/2023 Childcare Answer Date Recorded Childcare Unknown 02/12/2019 [...] Medicine/Kayden Morse MD [address] [place] [address] Leeann Marshall APRN-CNP [address] [facility] [address] [place] [address] 07/22/2025 11:00 AM EST Office Visit [facility], A Department of [facility] [address] [facility] [address] [place] [phone] Alea Mckenzie MD [address] [facility] [place] [address] 12/14/2025 3:15 PM EDT Office Visit [facility] [address] [place] [address] [place] [phone] Nathan Blankenship MD [address] [place] [address] documented as of this encounter Visit Diagnoses Not on filedocumented in this encounter Additional Health Concerns Assessment Noted Time PHQ-9 Depression Total Score: 1 01/16/20 23 3:48 PM EDT documented as of this encounter Care Teams Equipment Or Machinery Cleaner Relationship Specialty Start Date End Date Leeann Marshall APRN-CNP [address] [facility] [address] [place] [id number] PCP - General Internal Medicine 11/15/23 documented as of this encounter
--- OUTSIDE RECORDS SUMMARY | 2025-03-21 17:42 | XMS_ITS | Encounter Summary ---
Author Organization [facility] [email or web address] Sys tem Address [facility][id number] [address] [place] [address] Care Team Providers Care Coffee Brewer Name Role Phone Leeann Marshall VICE PRESIDENT COMMERCIAL BANK-PEDIATRIC PSYCHOLOGIST Primary Care Provider [phone] Reason for Visit * Reason Onset Date Comments Med Refill 02/04/2025 Encounter Details Date Type Department Care Team (Late st Contact Info) Description 02/04/2025 Telephone [facility] Internal Medicine/Kayden Morse MD [address] [place] [phone] Cony Bahena CMA Med Refill Social History Tobacco Use Types Packs/Day Years [...] any clubs o r organizations such as mormonism groups, unions, fraternal or athletic groups, or [...] Answer Date Recorded Total Score 0 06/10/2024 [facility] of Occupat ional Health - Occupational Stress [...] Recorded Do you need help finding a [place] [facility] career [facility] and/or a training [...] Telephone Encounter - Cony Bahena CMA - 02/04/2025 10:[address] Valles office and on the answer machine said that he is not available because of his 's terminal illness. I left a message for them to fax the records. Unsure if they will or not * Telephone Encounter - TERRY Monteiro - 02/04/2025 10:25 AM EDT Noted, thanks documented in this encounter Plan of Treatment Upcoming Encounters Date Type Department Care Team (Late st Contact Info) Description 06/19/2025 10:20 AM EDT Office Visit [facility] Internal Medicine/Kayden Morse MD [address] [place] [phone] Leeann Marshall APRN-CNP [address] [facility] [address] [place] [address] 07/22/2025 11:00 AM EST Office Visit [facility], A Department of [facility] [address] [facility] [address] [place] [address] Alea Mckenzie MD [address] [facility] [place] [address] 12/14/2025 3:15 PM EDT Office Visit [facility] [address] [place] [address] [place] [address] Nathan Blankenship MD [facility] [place] [address] documented as of this encounter Goals Goal [...] documented as of this encounter Care Teams Coffee Brewer Relationship Specialty Start Date End Date Leeann Marshall APRN-QI [address] [facility] [address] [place] [address] PCP - General Internal Medicine 11/15/23 documented as of this encounter
--- OUTSIDE RECORDS SUMMARY | 2025-03-21 17:42 | XMS_ITS | Encounter Summary ---
Author Organization [facility] Address [address] [place] [address] Phone Care Team Providers Care Veterans Services Specialist Name Role Phone Alkakrunal Tom Hiram DO Primary Care Provider [phone] Veronica De Jesus BEHAVIORAL THERAPY COORDINATOR-SHOWPLACE MANAGER Primary Care Provider U Leeann Monroy BEHAVIORAL THERAPY COORDINATOR-SHOWPLACE MANAGER Primary Care Provider [phone] Leeann Marshall BEHAVIORAL THERAPY COORDINATOR-SHOWPLACE MANAGER Primary Care Provider [phone] Riley Watts DO Unavailable [phone] Encounter Details Date Type Department Care Team (Late st Contact Info) Description 07/21/2023 Lab Requisition [facility] [address] [place] [phone] Nacho Harden, [employer]AM[place] [address] [place] [address] Urge incontinence Social History Tobacco Use Types Packs/Day Years [...] Description 03/24/2026 10:00 AM EDT Office Visit [facility] [address] [facility] [address] [place] [phone] Riley Watts DO [address] [facility] [address] [place] [address] documented as of this encounter Visit Diagnoses Diagnosis Urge incontinence documented in this encounter Care Teams Veterans Services Specialist Relationship Specialty Start Date End Date Pranay Tom GandhiDO PCP - General 03/15/23 10/16/23 Veronica De Jesus, BEHAVIORAL THERAPY COORDINATOR-[facility] PCP - General Family Medicine 10/17/23 12/03/23 Leeann Marshall, BEHAVIORAL THERAPY COORDINATOR-[facility] PCP - General Internal Medicine 12/04/23 07/15/24 Leeann Marshall, BEHAVIORAL THERAPY COORDINATOR-[facility] [address] [facility] [address] [place] [address] PCP - General Internal Medicine 07/16/24 Riley Watts DO [address] [facility] [address] [place] [address] Consulting Physician Cardiology 07/16/24 documented as of this encounter
--- OUTSIDE RECORDS SUMMARY | 2025-03-21 17:42 | XMS_ITS | Encounter Summary ---
Author Organization [facility] [employer] Sys tem Address [facility] [id number] [address] [place] [address] Care Team Providers Care Display Screen Fabricator Name Role Phone Leeann Marshall GRANITE FABRICATOR-MISSION MANAGER Primary Care Provider [phone] Encounter Details Date Type Department Care Team (Late st Contact Info) Description 03/26/2023 Telephone [facility] Internal Medicine - Family Medicine [address] [place] [address] Sultana Mauricio CMA Social History Tobacco Use [...] Telephone Encounter - Sultana Mauricio CMA - 03/26/2023 4:05 PM EDT Please send carvedilol to the [facility] in [place] in [place] documented in this encounter Plan of Treatment Upcoming Encounters Date Type Department Care Team (Late st Contact Info) Description 06/19/2025 10:20 AM EDT Office Visit [facility] Internal Medicine/Kayden Morse MD [address] [place] [phone] Leeann Marshall APRN-CNP [address] [facility] [address] [place] [address] 07/22/2025 11:00 AM EST Office Visit [facility], A Department of [facility] [address] [facility] [address] [place] [address] Alea Mckenzie MD [address] [facility] [place] [address] 12/14/2025 3:15 PM EDT Office Visit [facility] [address] [place] [address] [address] [facility] [place] [phone] Nathan Blaknenship MD [address] [place] [address] documented as of this encounter Visit Diagnoses Not on filedocumented in this encounter Additional Health Concerns Assessment Noted Time PHQ-9 Depression Total Score: 0 03/07/20 23 1:33 PM EDT documented as of this encounter Care Teams Display Screen Fabricator Relationship Specialty Start Date End Date Leeann Marshall APRN-CNP [address] [facility] [address] [place] [phone] PCP - General Internal Medicine 11/15/23 documented as of this encounter
--- OUTSIDE RECORDS SUMMARY | 2025-03-21 17:42 | XMS_ITS | Encounter Summary ---
Author Organization [facility] tem Address [id number] [address] [place] [address] Care Team Providers Care Repair Weaver Name Role Phone Leeann Marshall WATER PUMPER-DERMATOLOGY NURSE PRACTITIONER Primary Care Provider Reason for Visit * Reason Onset Date Comments Colonoscopy 11/27/2024 Encounter Details Date Type Department Care Team (Late st Contact Info) Description 11/27/2024 Telephone [facility], A Department of [address] [place] [address] Tim Nunez MD [address] [place] [address] [address] [place] [id number] Colonoscopy Social History Tobacco Use Types Packs/Day Years [...] How often do you attend chur or baptist services? More than 4 times per year 04/17/2023 Do you belong to any clubs o r organizations such as anabaptist groups, unions, fraternal or athletic groups, or [...] Answer Date Recorded Total Score 13 03/17/2025 [facility] - Occupational Stress Questionnaire Answer Date Recorded [...] Do you need help finding a [facility] career center and/or a training [...] encounter Miscellaneous Notes * Telephone Encounter - Elsie Seals - 11/27/2024 11:20 AM EDT Left voicemail for pt to call [phone] to schedule CLN * Telephone Encounter - Franny King - 11/27/2024 11:20 AM EDT Jaci (spouse) contacted [facility] regarding scheduling the CLN that Dr. Waylon Ibrahim ordered in November 2024. She reported that he may need a clearance ( Heart Attack in 2023) She requested a call with the plan. Please contact her as she will be the one who schedules the appointments. [phone]. Primer Charger forwarded to the material scheduler for further processing per protocol. * Telephone Encounter - Edson Villalpando - 11/27/2024 11:20 AM EDT Clearance request faxed to since last . was informed, will call once clearance is approved. * Telephone Encounter - Edson Villalpando - 11/27/2024 11:20 AM EDT LM for pt to call office. Considering 04/09/25 OR documented in this encounter Plan of Treatment Upcoming Encounters Date Type Department Care Team (Late st Contact Info) Description 06/19/2025 10:20 AM EDT Office Visit [facility]/Kayden Morse MD [address] [place] [address] Leeann Marshall APRN-CNP [address] [facility] [address] [place] [address] 07/22/2025 11:00 AM EST Office Visit [facility] Adult Endocrinology, A Department of [facility] [address] [facility] [address] [place] [phone] Alea Mckenzie MD [address] [facility] [place] [address] 12/14/2025 3:15 PM EDT Office Visit [facility] [address] [facility] [place] [address] [place] [phone] Nathan Blankenship MD [address] [place] [address] documented as of this encounter Goals Goal Patient Goal Type Associated Problems Recent Progress Patient-Stated? Author Return home General Yes Adeline Tran, RN Note: Evaluation of progress towards goal: Plan to return home with spouse. documented as of this encounter Visit Diagnoses Not on filedocumented in this encounter Additional Health Concerns Assessment Noted Time PHQ-9 Depression Total Score: 0 06/10/20 11:27 AM EDT documented as of this encounter Care Teams Repair Weaver Relationship Specialty Start Date End Date Leeann Marshall APRN-CNP [address] [facility] [address] [place] [address] PCP - General Internal Medicine 11/15/23 documented as of this encounter
--- OUTSIDE RECORDS SUMMARY | 2025-03-21 17:42 | XMS_ITS | Encounter Summary ---
Author Organization [facility] tem Address [id number] [address] [place] [address] Care Team Providers Care Call Circuit Worker Name Role Phone Leeann Marshall APRN-ELECTRONIC SERVICE TECHNICIAN Primary Care Provider [phone] Reason for Referral * Gastroenterology (Routine) - Pending Review Specialty Diagnoses / Procedures Referred By Ish narvaez Referred To Contact Diagnoses Other constipation History of colon polyps Left lateral abdominal pain Procedures Colonoscopy Tim Nunez MD [address] [place] [address] [address] [place] [address] Phone: tel: fax: Referral ID Status Reason Start Date Expiration Date V isits Requested Visits Authorized [id number] Pending Review 11/19/2024 11/19/2025 1 1 Encounter Details Date Type Department Care Team (Late st Contact Info) Description 11/19/2024 Telephone [facility], A Department of [address] [place] [address] Bianka Ramos CMA Social History Tobacco Use Types Packs/Day [...] How often do you attend chur or yarsanism services? More than 4 times per year 04/17/2023 Do you belong to any clubs o r organizations such as sikhism groups, unions, fraternal or athletic groups, or [...] Answer Date Recorded Total Score 0 06/10/2024 [facility]at ional [facility] - Occupational [...] Recorded Do you need help finding a [facility] career center and/or a training program? No 04/17/2023 Hunger Screening Answer Date Recorded Within the past 12 months we worried whether our food would run out before we got money to buy more. Never True 11/19/2024 Within the past 12 months th e food we bought just didn't last and we didn't have money to get more. Never True 11/19/2024 Purpose - Life Answer Date Recorded I have a purpose and direction in my life. Somew hat Agree 04/17/2023 Sex and Gender Information Value Date Recorded Sex Assigned at Not on file Legal Sex Male 11:45 AM EDT Gender Identity Not on file Sexual Orientation Not on file documented as of this encounter Miscellaneous Notes * Telephone Encounter - Bianka Ramos CMA - 11/19/2024 12:[address] Waylon Ibrahim's office visit today: Check out comments: CLN ASA 3, OR, Card Clearance, Plavix 2 day prep Ozempic - Clearance faxed to Dr Riley Watts [phone] * Telephone Encounter - Elsie Seals - 11/19/2024 12:49 PM EDT Cardiac Clearance received 11/26/24, only approved hold for Plavix 5 days prior to colonoscopy, ok to schedule procedure. * Telephone Encounter - Elsie Seals - 11/19/2024 12:49 PM EDT Lvm for pt to schedule colonoscopy documented in this encounter Plan of Treatment Upcoming Encounters Date Type Department Care Team (Late st Contact Info) Description 06/19/2025 10:20 AM EDT Office Visit [facility] Internal [facility]/Kayden Morse MD [address] [facility] [address] [place] [address] Leeann Marshall APRN-CNP [address] [facility] [address] [place] [address] 07/22/2025 11:00 AM EST Office Visit [facility], A Department of [facility] [address] [facility] [address] [place] [phone] Alea Mckenzie MD [address] [facility] [place] [address] 12/14/2025 3:15 PM EDT Office Visit [facility] [address] [place] [address] [place] [address] [phone] Nathan Blankenship MD [address] [place] [address] Scheduled Orders Name Type Priority Associated Diagnoses Orde r Schedule Colonoscopy GI Routine Other constipation History of colon polyps Left lateral abdominal pain 1 Occurrences starting 11/19/2024 until 11/19/2025 documented as of this encounter Goals Goal Patient Goal Type Associated Problems Recent Progress Patient-Stated? Author Return home General Yes Adeline Tran, SAMUEL Note: Evaluation of progress towards goal: Plan to return home with spouse. documented as of this encounter Visit Diagnoses Diagnosis Other constipation- Primary History of colon polyps Left lateral abdominal pain documented in this encounter Additional Health Concerns Assessment Noted Time PHQ-9 Depression Total Score: 0 06/10/20 24 11:27 AM EDT documented as of this encounter Care Teams Call Circuit Worker Relationship Specialty Start Date End Date Leeann Marshall APRN-CNP [address] [facility] [address] [place], [place] [phone] PCP - General Internal Medicine 11/15/23 documented as of this encounter
--- OUTSIDE RECORDS SUMMARY | 2025-03-21 17:42 | XMS_ITS | Encounter Summary ---
Author Organization [facility] tem Address [id number] [address] [place] [address] Care Team Providers Care Wildlife Conservationist Name Role Phone Leeann Marshall PALEONTOLOGY TEACHER-INTERNET MARKETING SPECIALIST Primary Care Provider Encounter Details Date Type Department Care Team (Late st Contact Info) Description 08/04/2024 Orders Only [facility] Internal Medicine/Kayden Morse MD [address] [place] [address] Ref Prov, [place] [address] Social History Tobacco Use Types Packs/Day Years [...] often do you attend chur ch or druze services? More than 4 times per year 04/17/2023 Do you belong to any clubs o r organizations such as buddhism groups, unions, fraternal or athletic groups, or [...] Answer Date Recorded Total Score 0 06/10/2024 [facility] of Occupat ional Health - Occupational Stress [...] got money to buy more. Never True 06/26/2024 Within the past 12 months th e food we bought just didn't last and we didn't have money to get more. Never True 06/26/2024 Purpose - Life Answer Date Recorded I [...] Description 06/19/2025 10:20 AM EDT Office Visit [facility] Internal [facility]/Kayden Morse MD [address] [facility] [address] [place] [phone] Leeann Marshall APRN-INTERNET MARKETING SPECIALIST [address] [facility] [address] [place] [address] 07/22/2025 11:00 AM EST Office Visit [facility] Adult Endocrinology, A Department of [facility] [address] [facility] [address] [place] [address] Alea Mckenzie MD [address] [facility] [place] [address] 12/14/2025 3:15 PM EDT Office Visit [facility] [address] [place] [address] [place] [address] Nathan Blankenship MD [address] [place] [address] documented as of this encounter Goals Goal Patient Goal Type Associated Problems Recent Progress Patient-Stated? Author Return home General Yes Adeline Tran, SAMUEL Note: Evaluation of progress towards goal: Plan to return home with spouse. documented as of this encounter Procedures Procedure Name Priority Date/Time Associated Diagnosis Comments CT ABDOMEN AND PELVIS WO CONT Routine 06/25/2024 documented in this encounter Results * CT abdomen and pelvis without contrast (06/25/2024) Anatomical Region Laterality Modality Body, Abdomen, Body Covera N/A Compu radha Tomography 06/25/2024 us Not In System Ref Prov IMG CT ORDERABLES Final R esult documented in this encounter Visit Diagnoses Not on filedocumented in this encounter Additional Health Concerns Assessment Noted Time PHQ-9 Depression Total Score: 0 06/10/20 24 11:27 AM EDT documented as of this encounter Care Teams Wildlife Conservationist Relationship Specialty Start Date End Date Leeann Marshall APRN-QI [address] [facility] [address] [place] [address] PCP - General Internal Medicine 11/15/23 documented as of this encounter
--- OUTSIDE RECORDS SUMMARY | 2025-03-21 17:42 | XMS_ITS | Encounter Summary ---
Author Organization [facility] Address [id number] [address] [place] [address] Care Team Providers Care Primary Counselor Name Role Phone Humble Marshallley SHELL MOLDER-SHIPFITTER APPRENTICE Primary Care Provider Encounter Details Date Type Department Care Team (Late st Contact Info) Description 05/14/2024 Telephone [facility] [address] [place] [address] [place] [address] [address] Mary Orozco I, HECTOR [address] [place] [address] Social History Tobacco Use Types Packs/Day Years [...] often do you attend chur ch or rastafari services? More than 4 times per year 04/17/2023 Do you belong to any clubs o r organizations such as denominational groups, unions, fraternal or athletic groups, or [...] PHQ-2 Answer Date Recorded Total Score 0 03/14/2024 [facility] of Occupat ional Health - Occupational [...] got money to buy more. Never True 04/03/2024 Within the past 12 months th e food we bought just didn't last and we didn't have money to get more. Never True 04/03/2024 Purpose - Life Answer Date Recorded I have a purpose and direction in my life. Somew hat Agree 04/17/2023 Sex and Gender Information Value Date Recorded Sex Assigned at Not on file Legal Sex Male 11:45 AM EDT Gender Identity Not on file Sexual Orientation Not on file documented as of this encounter Miscellaneous Notes * Telephone Encounter - HECTOR [place] - 05/14/2024 4:58 PM EDT He was a no show. Please call to reschedule * Telephone Encounter - Lisa Gramajo - 05/14/2024 4:58 PM EDT Patient has been rescheduled. documented in this encounter Plan of Treatment Upcoming Encounters Date Type Department Care Team (Late st Contact Info) Description 06/19/2025 10:20 AM EDT [facility]/Kayden Morse MD [address] [facility] [address] [place] [address] Leeann Marshall, SONIDO-SHIPFITTER APPRENTICE [address] [facility] [address] [place] [address] 07/22/2025 11:00 AM EST [facility], A Department of [facility] [address] [facility] [address] [place] [address] Alea Mckenzie MD [address] [facility] [place] [address] 12/14/2025 3:15 PM EDT Office Visit [facility] [address] [place] [address] [place] [address] Nathan Blankenship MD [facility] [place], [place] [address] documented as of this encounter Goals Goal Patient Goal Type Associated Problems Recent Progress Patient-Stated? Author Return home General Yes Adeline Tran, RN Note: Evaluation of progress towards goal: Plan to return home with spouse. documented as of this encounter Visit Diagnoses Not on filedocumented in this encounter Additional Health Concerns Assessment Noted Time PHQ-9 Depression Total Score: 0 03/14/20 24 11:49 AM EDT documented as of this encounter Care Teams Primary Counselor Relationship Specialty Start Date End Date Leeann Marshall APRN-QI [address] [facility] [address] [place] [address] PCP - General Internal Medicine 11/15/23 documented as of this encounter
--- OUTSIDE RECORDS SUMMARY | 2025-03-21 17:42 | XMS_ITS | Clinical Summary ---
Author Organization [facility] Address [address] [place] [address] Phone Care Team Providers Care Doctor Chiropractic Name Role Phone Leeann Marshall DATABASE MANAGER-AEROSPACE MANAGER Primary Care Provider [phone] Mac Riley Rojo DO Unavailable [phone] Allergies No known active allergies Medications DULoxetine (Cymbalta) [address] capsule Take 1 capsule (60 mg) by mouth once daily. Take with 30mg dose Active LORazepam (Ativan) 1 mg tablet Take 0.5 tablets (0.5 mg) by mouth. Take 1 tab every morning and 1/2 tablet every evening Active melatonin 3 mg capsule Take 2 capsules by mouth once daily at bedtime. Active omega 8-xkp-ngi-fish oil (Fish OiL) 1,000 mg (120 mg-180 mg) capsule Take 1 capsule (1,000 mg) by mouth once daily. Active aspirin 81 mg EC tablet Take 1 tablet (81 mg) by mouth once daily. Active empagliflozin (Jardiance) 25 mg Take 1 tablet (25 mg) by mouth once daily. Active insulin lispro protamin-lispro (HumaLOG Mix 50-50 KwikPen) 100 unit/mL (50-50) injection Inject under the skin 2 times a day with meals. Take as directed per insulin instructions . Per sliding scale Active nitroglycerin (Nitrostat) 0.4 mg SL tabletIndications: CAD, multiple vessel Place 1 tablet (0.4 mg) under the tongue every 5 minutes if needed for chest pain. May repeat dose every 5 minutes for up to 3 doses total. 100 tablet 11 4 Active Toujeo Max U-300 SoloStar 300 unit/mL (3 mL) injection INJECT 66 UNITS UNDER THE SKIN IN THE MORNING. 4 Active atorvastatin (Lipitor) 80 mg tabletIndications: Hyperlipidemia, unspecified hyperlipidemia type TAKE 1 TABLET BY MOUTH ONCE DAILY. 90 tablet 3 4 Active semaglutide (Ozempic) 2 mg/dose (8 mg/3 mL) pen injector Inject 2 mg under the skin every 7 days. Active busPIRone (Buspar) 10 mg tablet Take 2 tablets (20 mg) by mouth 2 times a day. Active traZODone (Desyrel) 100 mg tablet Take 1 tablet (100 mg) by mouth once daily at bedtime. Active mirtazapine (Remeron) 15 mg tablet Take 1 tablet (15 mg) by mouth once daily at bedtime. Active risperiDONE (RisperDAL M-TAB) 1 mg disintegrating tablet Dissolve 1 tablet (1 mg) in the mouth 2 times a day. Active divalproex sprinkle (Depakote Sprinkle) [address] capsule Take 2 capsules (250 mg) by mouth 2 times a day. Active potassium chloride CR (Klor-Con) 10 mEq ER tabletIndications: Edema, unspecified type Take 1 tablet (10 mEq) by mouth once daily. Do not crush, chew, or split. 90 tablet 3 4 025 Active spironolactone (Aldactone) 25 mg tabletIndications: Primary hypertension TAKE 1/2 TABLET BY MOUTH DAILY FOR 30 DAYS 45 tablet 3 5 Active clopidogrel (Plavix) 75 mg tabletIndications: CAD, multiple vessel,Obesity (BMI 30-39.9),History of PTCA TAKE 1 TABLET BY MOUTH ONCE DAILY. 90 tablet 3 5 Active carvedilol (Coreg) 12.5 mg tabletIndications: Ischemic cardiomyopathy,Chrissy edson hypertension Take 1 tablet (12.5 mg) by mouth 2 times a day. 180 tablet 3 5 026 Active losartan (Cozaar) 25 mg tabletIndications: Hypertension, unspecified type Take 1 tablet (25 mg) by mouth once daily. 90 tablet 5 Active furosemide (Lasix) 20 mg tabletIndications: Edema, unspecified type Take 1 tablet (20 mg) by mouth once daily (M-F). 90 tablet 3 4 025 Discontin ued(Patie nt Refused) Active Problems Problem Noted Date Diagnosed Date Shortness of breath 03/19/2025 Never smoked cigarettes 07/16/2024 Old [place] (myocardial infarction) 01/22/2024 History of PTCA 01/22/2024 Anxiety 01/22/2024 Ischemic cardiomyopathy 10/17/2023 Assessment & Plan (10/22/2023 4:13 PM EST): October 2023 TTE LVEF 55% Inferior hypokinesis Left atrium mild MR trace Major psychotic depression, recurrent (Multi) Moderate episode of recurrent major depressive d isorder 10/17/2023 ASHD (arteriosclerotic heart disease) 08/30/2023 Assessment & Plan (10/22/2023 4:12 PM EST): 2009 CABG x5 Oct 06, 2023: In-house inferior STEMI while in inpatient rehab following L4-L5 laminectomy. Managed emergently by Dr. Watts. Proximal, mid/distal and distal PDA of RCA PCI/RHINA x 3 Ramus PCI/RHINA Y graft to PITTS-diagonal - LAD: patent GRISELDA-OM patent SVG-RCA occluded SVG-circumflex/? OM occluded Depression 08/30/2023 Diabetes mellitus (Multi) 08/30/2023 Assessment & Plan (10/22/2023 4:14 PM EST): On statin/ARB Reports most recent hemoglobin A1c 8.0 Esophageal reflux 08/30/2023 History of coronary artery bypass graft 08/30/20 23 Hyperlipidemia 08/30/2023 Assessment & Plan (10/22/2023 4:13 PM EST): Tolerating high intensity statin Hypertension 08/30/2023 Assessment & Plan (10/22/2023 4:20 PM EST): Slightly elevated in office. Report home health care nurse - systolic blood pressure 149 BMI 35.0-35.9,adult 08/30/2023 Assessment & Plan (10/22/2023 4:14 PM EST): Reviewed the merits of healthy lifestyle choices on overall cardiovascular health. Encounters Date Type Department Care Team Description 03/19/2025 11:20 AM EDT Office Visit [address] [address] Riley Watts DO ASHD (arteriosclerotic heart disease); History of coronary artery bypass graft; History of PTCA; Shortness of breath; Type 2 diabetes mellitus without complication, with long-term current use of insulin; Anxiety; Never smoked cigarettes; BMI 35.0-35.9,adult; Mixed hyperlipidemia 03/19/[address] [address] Elida Antonio RN 03/19/2025 Travel 03/12/[address] [address] Lovely Torres, MARINE PROPULSION TECHNICIAN POC 02/18/[address] [address] Riley Watts DO Hypertension, unspecified type 01/19/[address] [address] Lovely Torres, MARINE PROPULSION TECHNICIAN nose bleeding from Last 3 Months Immunizations Immunization Administration Dates Next Due Pneumococcal polysaccharide vaccine, 23-valent, age 2 years and older (PNEUMOVAX 23) 09/14/2011 Tdap vaccine, age 7 year and older (BOOSTRIX, AD ACEL) 12/31/2024 Family History Medical History Relation Name Comments CABG Father Heart failure Father Hypertension Mother Stroke Mother Relation Name Status Comments Father Mother Social History Tobacco Use Types Packs/Day Years Used Date Smoking Tobacco: Never Smokeless Tobacco: Never Tobacco Cessation:Counseling Given: Not Answered Alcohol Use Standard Drinks/Week Comments Never 0 [...] Pulse 72 03/19/2025 11:41 AM EDT Temperature 36.9 C (98.4 F) 07/21/2023 2:56 PM EST Respiratory Rate 18 07/21/2023 2:56 PM EST Oxygen Saturation 98% 07/21/2023 2:56 PM EST Inhaled Oxygen Concentration - - Weight 115 kg (253 lb) 03/19/2025 11:41 AM EDT Height 180.3 cm (5' 11 ) 03/19/2025 11:41 AM EDT Body Mass Index 35.29 03/19/2025 11:41 AM EDT Plan of Treatment Upcoming Encounters Date Type Department Care Team (Late st Contact Info) Description 03/24/2026 10:00 AM EDT Office Visit [facility] [address] [facility] [address] [place] [address] Riley Watts DO [address] [facility] [address] [place] [address] [place] [address] Health Maintenance Due Date Last Done Comments CT Colonography 1957 Colonoscopy 1957 Colorectal Cancer Screening 1957 Creatinine Level 1957 FIT-DNA (Cologuard) 1957 FIT 1957 Lipid Panel 1957 Medicare Annual Wellness Vis it (AWV) 1957 Potassium Level 1957 Sigmoidoscopy 1957 MMR Vaccines (1 of 1 - Standard series) 1958 Diabetes: Retinopathy Screening 1967 Hepatitis C Screening 1975 Zoster Vaccines (1 of 2) 2007 Pneumococcal Vaccine (2 of 2 - PCV) 09/14/2012 09/14/2011 RSV High Risk: (Elderly (60+ ) or Population) (1 - Risk 60-74 years 1-dose series) 2017 Diabetes: Hemoglobin A1C 07/02/2020 04/01/2020 Diabetes: Urine Protein Screening 10/11/2023 10/11/2022 COVID-19 Vaccine (1 - 2023-2 5 season) 2024 Echocardiogram 10/06/2024 10/06/2023, 01/25/2023, 01/25/2023 Influenza Vaccine (#1) 2025 DTaP/Tdap/Td Vaccines (2 - T d or Tdap) 12/31/2034 12/31/2024 HIB Vaccines Aged Out No longer eligi ble based on patient's age to complete this topic HPV Vaccines Aged Out No longer eligi ble based on patient's age to complete this topic Hepatitis A Vaccines Aged Out No long er eligible based on patient's age to complete this topic Hepatitis B Vaccines Aged Out No long er eligible based on patient's age to complete this topic IPV Vaccines Aged Out No longer eligi ble based on patient's age to complete this topic Meningococcal Vaccine Aged Out No ute missy eligible based on patient's age to complete this topic Rotavirus Vaccines Aged Out No longer eligible based on patient's age to complete this topic Procedures Procedure Name Priority Date/Time Associated Diagnosis Comments ECHOCARDIOGRAM 10/06/2023 from Last 3 Months or Most Recently Relevant to Health Maintenance Results * ECHOCARDIOGRAM (10/06/2023) Narrative 10/06/2023 Ordered by an unspecified provider. us Generic Provider Scanning CV ECHO PROCEDURES Fin al Result from Last 3 Months or Most Recently Relevant to Health Maintenance [facility] RAFAEL AYOUB MEDICARE Care Teams Doctor Chiropractic Relationship Specialty Start Date End Date Leeann Marshall, DATABASE MANAGER-AEROSPACE MANAGER [address] [facility] [address] [place] [address] PCP - General Internal Medicine 07/16/24 Riley Watts DO [address] [facility] [address] [place] [address] [place] [address] Consulting Physician Cardiology 07/16/24
--- OUTSIDE RECORDS SUMMARY | 2025-03-21 17:42 | XMS_ITS | Encounter Summary ---
Author Organization [facility] Address [address] [place] [address] Phone Care Team Providers Care Lead Fire Protection Engineer Name Role Phone AlkakrunalTom DO Primary Care Provider [phone]- [phone] Veronica De Jesus FRONT COUNTER ATTENDANT-PICKER PACKER Primary Care Provider U Leeann Monroy FRONT COUNTER ATTENDANT-PICKER PACKER Primary Care Provider [phone] Leeann Marshall FRONT COUNTER ATTENDANT-PICKER PACKER Primary Care Provider [phone] Riley Watts DO Unavailable [phone] Encounter Details Date Type Department Care Team (Late st Contact Info) Description 09/26/2023 Scanned Document [facility] [address] [place] [id number] Scanning, Generic Provider Social History Tobacco Use Types Packs/Day Years Used Date Smoking Tobacco: Never Alcohol Use Standard Drinks/Week Comments [...] Description 03/24/2026 10:00 AM EDT Office Visit [facility] [address] [facility] [address] [place] [address] Riley Watts DO [address] [facility] [address] [place] [address] documented as of this encounter Procedures Procedure Name Priority Date/Time Associated Diagnosis Comments OUTSIDE IMAGING SCAN 09/26/2023 documented in this encounter Results * OUTSIDE IMAGING SCAN (09/26/2023) Anatomical Region Laterality Modality Other Narrative 09/26/2023 Ordered by an unspecified provider. Generic Provider Scanning OUTSIDE SCAN Final Result documented in this encounter Visit Diagnoses Not on filedocumented in this encounter Care Teams Lead Fire Protection Engineer Relationship Specialty Start Date End Date Tom Pires DO PCP - General 03/15/23 10/16/23 Veronica De Jesus, FRONT COUNTER ATTENDANT-PICKER PACKER PCP - General Family Medicine 10/17/23 12/03/23 Leeann Marshall, FRONT COUNTER ATTENDANT-PICKER PACKER PCP - General Internal Medicine 12/04/23 07/15/24 Leeann Marshall, FRONT COUNTER ATTENDANT-PICKER PACKER [address] [facility] [address] [place] [address] PCP - General Internal Medicine 07/16/24 Riley Watts DO [address] [facility] [address] [place] [address] Consulting Physician Cardiology 07/16/24 documented as of this encounter
--- OUTSIDE RECORDS SUMMARY | 2025-03-21 17:42 | XMS_ITS | Encounter Summary ---
Author Organization [facility] [email or web address] Sys tem Address [id number] [address] [place] [address] Care Team Providers Care Underground Conduit Installer Name Role Phone Leeann Marshall SPLICER MACHINE OPERATOR-MARTIAL ARTS INSTRUCTOR Primary Care Provider [phone] Reason for Visit * Reason Comments Med Refill Encounter Details Date Type Department Care Team (Late st Contact Info) Description 06/09/2024 Refill [facility] - Family Medicine [address] [place] [address] Tom Pires, DO [address] [place] [address] B12 deficiency Social History Tobacco Use Types Packs/Day Years [...] How often do you attend chur or sikhism services? More than 4 times per year 04/17/2023 Do you belong to any clubs o r organizations such as zoroastrianism groups, unions, fraternal or athletic groups, or [...] Answer Date Recorded Total Score 0 06/10/2024 [facility] - Occupational [...] Recorded Do you need help finding a [facility] career center and/or a training program? No 04/17/2023 Hunger Screening Answer Date Recorded Within the past 12 months we worried whether our food would run out before we got money to buy more. Never True 06/10/2024 Within the past 12 months th e food we bought just didn't last and we didn't have money to get more. Never True 06/10/2024 Purpose - Life Answer Date Recorded I [...] Description 06/19/2025 10:20 AM EDT Office Visit [facility] Internal Medicine/Kayden Morse MD [address] [facility] [address] [place] [address] Leeann Marshall APRN-QI [address] [facility] [address] [place] [address] 07/22/2025 11:00 AM EST Office Visit [facility] Adult Endocrinology, A Department of [facility] [address] [facility] [address] [place] [address] Alea Mckenzie MD [address] [facility] [place] [address] 12/14/2025 3:15 PM EDT Office Visit [facility] [address] [place] [address] [place] [address] Nathan Blankenship MD [address] [place] [address] documented as of this encounter Goals Goal Patient Goal Type Associated Problems Recent Progress Patient-Stated? Author Return home General Yes Adeline Tran, RN Note: Evaluation of progress towards goal: Plan to return home with spouse. documented as of this encounter Visit Diagnoses Diagnosis B12 deficiency documented in this encounter Additional Health Concerns Assessment Noted Time PHQ-9 Depression Total Score: 0 03/14/20 11:49 AM EDT documented as of this encounter Care Teams Underground Conduit Installer Relationship Specialty Start Date End Date Leeann Marshall APRN-QI [address] [facility] [address] [place] [address] PCP - General Internal Medicine 11/15/23 documented as of this encounter
--- OUTSIDE RECORDS SUMMARY | 2025-03-21 17:42 | XMS_ITS | Encounter Summary ---
Author Organization [facility] Sys tem Address [facility]-[id number] [address] [place] [address] Care Team Providers Care Skip Miner Blasting Name Role Phone Leeann Marshall RESEARCH TECHNICIAN-HIM CLERK Primary Care Provider [phone] Encounter Details Date Type Department Care Team (Late st Contact Info) Description 05/11/2023 Orders Only [facility] Internal Medicine - Family Medicine [address] [place] [address] Tom Pires, DO [address] [place] [address] Social History Tobacco Use Types Packs/Day Years [...] often do you attend chur ch or judaism services? More than 4 times per year 04/17/2023 Do you belong to any clubs o r organizations such as moravian groups, unions, fraternal or athletic groups, or [...] PHQ-2 Answer Date Recorded Total Score 13 05/10/2023 [facility] of Occupat ional Health [...] [facility]/Kayden Morse MD [address] [facility] [address] [place] [address] Leeann Marshall, RESEARCH TECHNICIAN-HIM CLERK [address] [facility] [address] [place] [address] 07/22/2025 11:00 AM EST [facility] Visit [facility], A Department of [facility] [address] [facility] [address] [place] [address] Alea Mckenzie MD [address] [facility] [place] [address] 12/14/2025 3:15 PM EDT Office Visit [facility] [address] [facility] [place] [address] Nathan Blankenship MD [address] [place] [address] documented as of this encounter Procedures Procedure Name Priority Date/Time Associated Diagnosis Comments HEPATITIS C(HCV) ANTIBODY W/REFLEX TO PCR Routine 05/11/2023 12:14 PM EDT documented in this encounter Results * Hepatitis C(HCV) Ab w/ Reflex to PCR (05/11/2023 12:14 PM EDT) Tom Pires DO LAB BLOOD ORDERABLES Final Resul t MANUALLY TRANSCRIBED RESULTS documented in this encounter Visit Diagnoses Not on filedocumented in this encounter Additional Health Concerns Assessment Noted Time PHQ-9 Depression Total Score: 13 023 11:25 AM EDT documented as of this encounter Care Teams Skip Miner Blasting Relationship Specialty Start Date End Date Leeann Marshall APRN-QI [address] [facility] [address] [place] [address] PCP - General Internal Medicine 11/15/23 documented as of this encounter
--- OUTSIDE RECORDS SUMMARY | 2025-03-21 17:42 | XMS_ITS | Encounter Summary ---
Author Organization [facility] Address [address] [place] [address] Phone Care Team Providers Care Customer Assistance Associate Name Role Phone AlkakrunalTom DO Primary Care Provider [phone]- [phone] Veronica De Jesus CARBON ELECTRODES SUPERVISOR-WATER RESOURCE PROJECT MANAGER Primary Care Provider U Leeann Monroy CARBON ELECTRODES SUPERVISOR-WATER RESOURCE PROJECT MANAGER Primary Care Provider [phone] Leeann Marshall CARBON ELECTRODES SUPERVISOR-WATER RESOURCE PROJECT MANAGER Primary Care Provider [phone] Riley Watts DO Unavailable [phone] Encounter Details Date Type Department Care Team (Late st Contact Info) Description 10/06/2023 Scanned Document [facility] [address] [place] [id number] Scanning, Generic Provider Social History Tobacco Use [...] Description 03/24/2026 10:00 AM EDT Office Visit [facility] [address] [facility] [address] [place] [address] Riley Watts DO [address] [facility] [address] [place] [address] documented as of this encounter Procedures Procedure Name Priority Date/Time Associated Diagnosis Comments ECHOCARDIOGRAM 10/06/2023 documented in this encounter Results * ECHOCARDIOGRAM (10/06/2023) Narrative 10/06/2023 Ordered by an unspecified provider. us Generic Provider Scanning CV ECHO PROCEDURES Fin al Result documented in this encounter Visit Diagnoses Not on filedocumented in this encounter Care Teams Customer Assistance Associate Relationship Specialty Start Date End Date Tom PiresardDO PCP - General 03/15/23 10/16/23 Veronica De Jesus, CARBON ELECTRODES SUPERVISOR-WATER RESOURCE PROJECT MANAGER PCP - General Family Medicine 10/17/23 12/03/23 Leeann Marshall, CARBON ELECTRODES SUPERVISOR-WATER RESOURCE PROJECT MANAGER PCP - General Internal Medicine 12/04/23 07/15/24 Leeann Marshall, CARBON ELECTRODES SUPERVISOR-WATER RESOURCE PROJECT MANAGER [address] [facility] [address] [place] [address] PCP - General Internal Medicine 07/16/24 Riley Watts DO [address] [facility] [address] [place] [address] Consulting Physician Cardiology 07/16/24 documented as of this encounter
--- OUTSIDE RECORDS SUMMARY | 2025-03-21 17:42 | XMS_ITS | Encounter Summary ---
Author Organization [facility] Sys tem Address [facility]-[id number] [address] [place] [address] Care Team Providers Care Extension Service Supervisor Name Role Phone Leeann Marshall EDUCATION AND TRAINING MANAGER-ACADEMIC INTERVENTIONIST Primary Care Provider [phone]- [phone] Encounter Details Date Type Department Care Team (Late st Contact Info) Description 10/16/2022 Orders Only [facility] Internal Medicine - Family Medicine [address] [place] [address] Tom Pires, [address] [place] [address] Social History Tobacco Use Types Packs/Day Years Used Date Smoking Tobacco: Never Smokeless Tobacco: Never Alcohol Use Standard Drinks/Week Comments No 0 (1 standard drink = 0.6 oz pur e alcohol) PHQ-2 Answer Date Recorded Total Score 0 10/11/2022 Childcare Answer Date Recorded Childcare Unknown 02/12/2019 [...] have Coronavirus / COVID-19? No / Unsure 10/11/2022 2:57 PM EST documented as of this encounter Plan of Treatment Upcoming Encounters Date Type Department Care Team (Late st Contact Info) Description 06/19/2025 10:20 AM EDT Office Visit [facility] Internal [facility]/Kayden Morse MD [address] [facility] [address] [place] [address] Leeann Marshall APRN-CNP [address] [facility] [address] [place] [address] 07/22/2025 11:00 AM EST [facility], A Department of [facility] [address] [facility] [address] [place] [address] Alea Mckenzie MD [address] [facility] [place] [address] 12/14/2025 3:15 PM EDT Office Visit [facility] [address] [place] [address] [place] [address] Nathan Blankenship MD [address] [place] [address] documented as of this encounter Visit Diagnoses Not on filedocumented in this encounter Additional Health Concerns Assessment Noted Time PHQ-9 Depression Total Score: 0 10/11/19 23 3:10 PM EST documented as of this encounter Care Teams Extension Service Supervisor Relationship Specialty Start Date End Date Leeann Marshall APRN-CNP [facility] [facility] [address] [place] [id number] PCP - General Internal Medicine 11/15/23 documented as of this encounter
--- OUTSIDE RECORDS SUMMARY | 2025-03-21 17:42 | XMS_ITS | Encounter Summary ---
Author Organization [facility] Sys tem Address [facility]-[id number] [address] [place] [address] Care Team Providers Care Advisory Software Engineer Name Role Phone Leeann Marshall MANAGER UTILIZATION MANAGEMENT-NAPPING MACHINE OPERATOR Primary Care Provider [phone]- [phone] Encounter Details Date Type Department Care Team (Late st Contact Info) Description 01/16/2023 Telephone [facility] Internal Medicine - Family Medicine [address] [place] [address] Tom Pires, [address] [place] [address] Social History Tobacco Use Types Packs/Day Years [...] encounter Miscellaneous Notes * Telephone Encounter - Leeann Hoyt - 01/16/2023 8:50 AM EDT Patient called and would like you to call in the Nexlitol in to his pharmacy. documented in this encounter Plan of Treatment Upcoming Encounters Date Type Department Care Team (Late st Contact Info) Description 06/19/2025 10:20 AM EDT Office Visit [facility] Internal Medicine/Kayden Morse MD [address] [facility] [address] [place] [address] Leeann Marshall APRN-CNP [address] [facility] [address] [place] [address] 07/22/2025 11:00 AM EST Office Visit [facility], A Department of [facility] [address] [facility] [address] [place] [address] Alea Mckenzie MD [address] [facility] [place] [address] 12/14/2025 3:15 PM EDT Office Visit [facility] [address] [place] [address] [place] [address] Nathan Blankenship MD [address] [place] [address] documented as of this encounter Visit Diagnoses Not on filedocumented in this encounter Additional Health Concerns Assessment Noted Time PHQ-9 Depression Total Score: 1 01/16/20 23 3:48 PM EDT documented as of this encounter Care Teams Advisory Software Engineer Relationship Specialty Start Date End Date Leeann Marshall APRN-CNP [address] [facility] [address] [place] [address] PCP - General Internal Medicine 11/15/23 documented as of this encounter
--- OUTSIDE RECORDS SUMMARY | 2025-03-21 17:42 | XMS_ITS | Encounter Summary ---
Author Organization [employer] [facility] [employer] Address [facility]-[id number] [address] [place] [address] Care Team Providers Care Nutrition Partner Name Role Phone Leeann Marshall HEAD SILVERMAN-DRIVER SALESMAN Primary Care Provider [phone]- [phone] Reason for Visit * Reason Comments Med Change Request Encounter Details Date Type Department Care Team (Late Contact Info) Description 02/22/2023 Refill [facility] Internal Medicine - Family Medicine [address] [place] [address] Tom Pires, [address] [place] [address] Essential (primary) hypertension Social History Tobacco Use Types Packs/Day Years Used Date Smoking Tobacco: Never Smokeless Tobacco: Never Alcohol Use Standard Drinks/Week Comments No 0 (1 standard drink = 0.6 oz pur e alcohol) PHQ-2 Answer Date Recorded Total Score 0 02/13/2023 Childcare Answer Date Recorded Childcare Unknown 02/12/2019 [...] [facility] Internal [facility]/Kayden Morse MD [address] [facility] [address] [place] [address] Leeann Marshall APRN-CNP [address] [facility] [address] [place] [address] 07/22/2025 11:00 AM EST Office Visit [facility], A Department of [facility] [address] [facility] [address] [place] [address] Alea Mckenzie MD [address] [facility] [place] [address] 12/14/2025 3:15 PM EDT Office Visit [facility] [address] [place] [address] [place] [address] Nathan Blankenship MD [address] [place] [address] documented as of this encounter Visit Diagnoses Diagnosis Essential (primary) hypertension Unspecified essential hypertension documented in this encounter Additional Health Concerns Assessment Noted Time PHQ-9 Depression Total Score: 0 02/14/20 23 3:37 PM EDT documented as of this encounter Care Teams Nutrition Partner Relationship Specialty Start Date End Date Leeann Marshall APRN-CNP [address] [facility] [address] [address] PCP - General Internal Medicine 11/15/23 documented as of this encounter
--- OUTSIDE RECORDS SUMMARY | 2025-03-21 17:42 | XMS_ITS | Encounter Summary ---
Author Organization [employer] [facility] tem Address [facility]-[id number] [address] [place] [address] Care Team Providers Care Personnel Research Psychologist Name Role Phone Leeann Marshall ROTOR ASSEMBLER-TRAVEL SERVICE CONSULTANT Primary Care Provider Encounter Details Date Type Department Care Team (Late Contact Info) Description 01/16/2023 Orders Only [facility] Internal Medicine - Family Medicine [address] [place] [address] Tom Pires, [address] [place] [address] Coronary arteriosclerosis (Primary Dx) Social History Tobacco Use Types [...] Physicians Internal Medicine/Kayden Morse MD [address] [facility] [address] [place] [address] Leeann Marshall APRN-CNP [address] [facility] [address] [place] [address] 07/22/2025 11:00 AM EST Office Visit [facility], A Department of [facility] [address] [facility] [address] [place] [address] Alea Mckenzie MD [address] [facility] [place] [address] 12/14/2025 3:15 PM EDT Office Visit [facility] [address] [place] [address] [address] [facility] [place] [address] Nathan Blankenship MD [address] [place], [place] [address] documented as of this encounter Visit Diagnoses Diagnosis Coronary arteriosclerosis- Primary Coronary atherosclerosis of unspecified type of vessel, [place] or graft documented in this encounter Additional Health Concerns Assessment Noted Time PHQ-9 Depression Total Score: 1 01/16/20 23 3:48 PM EDT documented as of this encounter Care Teams Personnel Research Psychologist Relationship Specialty Start Date End Date Leeann Marshall APRN-CNP [address] [facility] [address] [place], [place] [address] PCP - General Internal Medicine 11/15/23 documented as of this encounter
--- OUTSIDE RECORDS SUMMARY | 2025-03-21 17:42 | XMS_ITS | Encounter Summary ---
Author Organization [facility] Address [address] [place] [address] Phone Care Team Providers Care Railroad Hand Name Role Phone Leeann Marshall GROUNDS MAINTENANCE MANAGER-HEAD CHAR FILTER TANK TENDER Primary Care Provider [phone] -[phone] Riley Watts DO Unavailable Encounter Details Date Type Department Care Team (Late st Contact Info) Description 03/19/[address] [address] Elida Antonio, RN Social History Tobacco Use Types Packs/Day [...] encounter Miscellaneous Notes * Telephone Encounter - Elida Antonio RN - 03/19/2025 1:31 PM EDT Clearance request received from [facility]. Patient scheduled for colonoscopy . Requesting to hold Plavix 5 days prior to procedure and POC. Form completed and faxed. Phone call to [facility] with [facility]. Phone- [phone] Fax- [phone] documented in this encounter Plan of Treatment Upcoming Encounters Date Type Department Care Team (Late st Contact Info) Description 03/24/2026 10:00 AM EDT Office Visit [facility] [address] [phone] Riley Watts DO [address] [facility] 2, [address] [address] documented as of this encounter Visit Diagnoses Not on filedocumented in this encounter Additional Health Concerns Assessment Noted Time A fall risk assessment has been complete d for the patient 03/19/2025 11:40 AM EDT documented as of this encounter Care Teams Railroad Hand Relationship Specialty Start Date End Date Leeann Marshall, GROUNDS MAINTENANCE MANAGER-HEAD CHAR FILTER TANK TENDER [address] [facility] [address] [place] [address] PCP - General Internal Medicine 07/16/24 Riley Watts DO [address] [place] [address] [address], [address] [address] Consulting Physician Cardiology 07/16/24 documented as of this encounter
--- OUTSIDE RECORDS SUMMARY | 2025-03-21 17:42 | XMS_ITS | Encounter Summary ---
Author Organization [facility] Sys tem Address [facility]-[id number] [address] [place] [address] Care Team Providers Care Cardiology Teacher Name Role Phone Leeann Marshall SALES OFFICER-PAID SEARCH ANALYST Primary Care Provider [phone]- [phone] Encounter Details Date Type Department Care Team (Late st Contact Info) Description 02/19/2023 Telephone [facility] Internal [facility] - Family Medicine [address] [place] [address] Tom Pires, [address] [place] [address] Social History Tobacco Use Types Packs/Day Years [...] * Telephone Encounter - Leeann Hoyt - 02/19/2023 1:05 PM EDT Patient is out of the Entresto sample and would like a prescription called in documented in this encounter Plan of Treatment Upcoming Encounters Date Type Department Care Team (Late st Contact Info) Description 06/19/2025 10:20 AM EDT Office Visit [facility] Internal Medicine/Kayden Morse MD [address] [facility] [address] [place] [address] Leeann Marshall APRN-CNP [address] [facility] [address] [place] [address] 07/22/2025 11:00 AM EST Office Visit [facility], A Department of [facility] [address] [facility] [address] [place] [address] Alea Mckenzie MD [address] [facility] [place] [address] 12/14/2025 3:15 PM EDT Office Visit [facility] [address] [place] [address] [address] [facility] [place] [address] Nathan Blankenship MD [address] [place] [address] documented as of this encounter Visit Diagnoses Not on filedocumented in this encounter Additional Health Concerns Assessment Noted Time PHQ-9 Depression Total Score: 0 02/14/20 23 3:37 PM EDT documented as of this encounter Care Teams Cardiology Teacher Relationship Specialty Start Date End Date Leeann Marshall APRN-CNP [address] [facility] [address] [place] [address] PCP - General Internal Medicine 11/15/23 documented as of this encounter
--- OUTSIDE RECORDS SUMMARY | 2025-03-21 17:42 | XMS_ITS | Encounter Summary ---
Author Organization [facility] Address [address] [place] [address] Phone Care Team Providers Care Neurodiagnostic Technologist Name Role Phone AlkakrunalTom DO Primary Care Provider +1- [phone] Veronica De Jesus ROOFING TILE SORTER-TRACE CLERK Primary Care Provider U Leeann Monroy ROOFING TILE SORTER-TRACE CLERK Primary Care Provider [phone] Leeann Marshall ROOFING TILE SORTER-TRACE CLERK Primary Care Provider +1 -[phone] Riley Watts DO Unavailable [phone] Encounter Details Date Type Department Care Team (Late st Contact Info) Description 10/08/2023 Scanned Document [facility] [address] [place] [phone] Scanning, Generic Provider Social History Tobacco Use [...] Description 03/24/2026 10:00 AM EDT Office Visit [facility] [address] [facility] [address] [place] [address] Riley Watts DO [address] [facility] [address] [place] [address] documented as of this encounter Visit Diagnoses Not on filedocumented in this encounter Care Teams Neurodiagnostic Technologist Relationship Specialty Start Date End Date Pranay Tom GandhiDO PCP - General 03/15/23 10/16/23 Veronica De Jesus, ROOFING TILE SORTER-[facility] PCP - General Family Medicine 10/17/23 12/03/23 Leeann Marshall, ROOFING TILE SORTER-[facility] PCP - General Internal Medicine 12/04/23 07/15/24 Leeann Marshall, ROOFING TILE SORTER-[facility] [address] [facility] [address] [place] [address] PCP - General Internal Medicine 07/16/24 Riley Watts DO [address] [facility] [address], [address] [place] [address] Consulting Physician Cardiology 07/16/24 documented as of this encounter
--- OUTSIDE RECORDS SUMMARY | 2025-03-21 17:42 | XMS_ITS | Encounter Summary ---
Author Organization [facility] Address [id number] [address] [place] [address] Care Team Providers Care Cipher Expert Name Role Phone Leeann Marshall SERVICES ACCOUNT MANAGER-RAG SORTER AND CUTTER Primary Care Provider [phone]- [phone] Encounter Details Date Type Department Care Team (Late st Contact Info) Description 10/03/2022 Telephone [facility] Internal Medicine - Family Medicine [address] [place] [address] Arleth Wan CMA Social History Tobacco Use Types Packs/Day Years Used Date Smoking Tobacco: Never Smokeless Tobacco: Never Alcohol Use Standard Drinks/Week Comments No 0 (1 standard drink = 0.6 oz pur e alcohol) PHQ-2 Answer Date Recorded Total Score 6 09/25/2022 Childcare Answer Date Recorded Childcare Unknown 02/12/2019 [...] have Coronavirus / COVID-19? Unable to assess 10/04/2022 2:20 PM EST documented as of this encounter Miscellaneous Notes * Telephone Encounter - Arleth Wan CMA - 10/03/2022 11:37 AM EST Patient wants to know if you could prescribe him some Viagra. If so, he would like it sent to [facility] * Telephone Encounter - Tom Pires DO - 10/03/2022 11:37 AM EST We will discuss on his follow-up appointment documented in this encounter Plan of Treatment Upcoming Encounters Date Type Department Care Team (Late st Contact Info) Description 06/19/2025 10:20 AM EDT Office Visit [facility] Internal Medicine/Kayden Morse MD [address] [facility] [address] [place] [phone] Leeann Marshall APRN-CNP [address] [facility] [address] [place] [address] 07/22/2025 11:00 AM EST Office Visit [facility] Adult Endocrinology, A Department of [facility] [address] [facility] [address] [place] [address] Alea Mckenzie MD [address] [place] [address] 12/14/2025 3:15 PM EDT Office Visit [facility] [address] [place] [address] [place] [address] Nathan Blankenship MD [address] [place] [address] documented as of this encounter Visit Diagnoses Not on filedocumented in this encounter Additional Health Concerns Assessment Noted Time PHQ-9 Depression Total Score: 6 09/25/19 23 3:43 PM EST documented as of this encounter Care Teams Cipher Expert Relationship Specialty Start Date End Date Leeann Marshall APRN-CNP [address] [facility] [address] [place] [address] PCP - General Internal Medicine 11/15/23 documented as of this encounter
--- OUTSIDE RECORDS SUMMARY | 2025-03-21 17:42 | XMS_ITS | Encounter Summary ---
Author Organization [facility] tem Address [id number] [address] [place] [address] Care Team Providers Care Strainer Tender Name Role Phone Leeann Marshall PLANTING MACHINE CREWMAN-EQUIPMENT MECHANIC Primary Care Provider [phone]- [phone] Reason for Visit * Reason Comments Med Change Request Encounter Details Date Type Department Care Team (Late st Contact Info) Description 05/10/2023 Refill [facility] Internal Medicine - Family Medicine [address] [place] [address] Tom Pires, DO [address] [place] [address] B12 deficiency Social History Tobacco Use Types [...] How often do you attend chur or jainism services? More than 4 times per year [...] Answer Date Recorded Total Score 13 05/10/2023 [facility] of Occupat ional Health - [...] Recorded Do you need help finding a hi-desert medical centeral career center and/or a training [...] Visit [facility] Internal Medicine/Kayden Morse MD [address] [facility] [address] [place] [address] Leeann Marshall APRN-EQUIPMENT MECHANIC [address] [facility] [address] [place] [address] 07/22/2025 11:00 AM EST Office Visit [facility] Adult Endocrinology, A Department of [facility] [address] [facility] [address] [place] [address] Alea Mckenzie MD [address] [facility] [place] [address] 12/14/2025 3:15 PM EDT Office Visit [facility] [address] [place] [address] [address] [facility] [place] [address] Nathan Blankenship MD [address] [place] [address] documented as of this encounter Visit Diagnoses Diagnosis B12 deficiency documented in this encounter Additional Health Concerns Assessment Noted Time PHQ-9 Depression Total Score: 13 023 11:25 AM EDT documented as of this encounter Care Teams Strainer Tender Relationship Specialty Start Date End Date Leeann Marshall APRN-CNP [address] [facility] [address] [place] [address] PCP - General Internal Medicine 11/15/23 documented as of this encounter
--- OUTSIDE RECORDS SUMMARY | 2025-03-21 17:42 | XMS_ITS | Encounter Summary ---
Author Organization [facility] Address [address] [place] [address] Phone Care Team Providers Care Necktie Stitcher Name Role Phone Leeann Marshall APRN-QI Primary Care Provider [phone] Riley Watts DO Unavailable [phone] Encounter Details Date Type Department Care Team (Latest Contact Info) Description 03/19/2025 Travel Social History Tobacco Use Types Packs/Day [...] Description 03/24/2026 10:00 AM EDT Office Visit [place] [id number] [address] [place] [address] Riley Watts, [address] [facility] [address], [address] [place], [place] [phone] documented as of this encounter Visit Diagnoses Not on filedocumented in this encounter Additional Health Concerns Assessment Noted Time A fall risk assessment has been complete d for the patient 03/19/2025 11:40 AM EDT documented as of this encounter Care Teams Necktie Stitcher Relationship Specialty Start Date End Date Leeann Marshall APRN-CNP [address] [facility] [address] [place] [address] PCP - General Internal Medicine 07/16/24 Riley Watts DO [address] [facility] 2, [facility] [address] [place] [address] Consulting Physician Cardiology 07/16/24 documented as of this encounter
--- OUTSIDE RECORDS SUMMARY | 2025-03-21 17:42 | XMS_ITS | Encounter Summary ---
Author Organization [employer] Address [id number] [address] [place] [address] Care Team Providers Care Customer Advocacy Manager Name Role Phone Leeann Marshall INVENTORY CONTROL MANAGER-DYEING MACHINE FEEDER Primary Care Provider [phone]- [phone] Encounter Details Date Type Department Care Team (Late Contact Info) Description 02/19/2023 Orders Only [facility] Internal Medicine - Family Medicine [address] [place] [address] Tom Pires, [address] [place] [address] Chronic diastolic CHF (congestive heart failure) ([facility]) Social History Tobacco Use Types Packs/Day Years [...] Visit [facility] Internal Medicine/Kayden Morse MD [address] [facility] [address] [place] [address] Leeann Marshall APRN-CNP [address] [facility] [address] [place] [address] 07/22/2025 11:00 AM EST Office Visit [facility] Adult [facility], A Department of [facility] [address] [facility] [address] [place] [address] Alea Mckenzie MD [address] [facility], [address] [place] [address] 12/14/2025 3:15 PM EDT Office Visit [facility] [address] [place] [address] [address] [facility] [place] [address] Nathan Blankenship MD [address] [place] [address] documented as of this encounter Visit Diagnoses Diagnosis Chronic diastolic CHF (congestive heart failure) ([facility]-HCC) documented in this encounter Additional Health Concerns Assessment Noted Time PHQ-9 Depression Total Score: 0 02/14/20 23 3:37 PM EDT documented as of this encounter Care Teams Customer Advocacy Manager Relationship Specialty Start Date End Date Leeann Marshall APRN-CNP [address] [facility] [address] [address] PCP - General Internal Medicine 11/15/23 documented as of this encounter
--- OUTSIDE RECORDS SUMMARY | 2025-03-21 17:42 | XMS_ITS | Encounter Summary ---
Author Organization [facility] tem Address [id number] [address] [place] [address] Care Team Providers Care Administrative Project Coordinator Name Role Phone Leeann Marshall Primary Care Provider [phone]- [phone] Reason for Referral * Consultation (Routine) - Pending Review Specialty Diagnoses / Procedures Referred By Ish narvaez Referred To Contact Gastroenterology Diagnoses Abdominal pain, unspecified abdominal location Leeann Marshall APRN-CNP [address] [facility] [address] [place] [address] Phone: tel: fax: [facility] [address] [place] [address] Phone: tel: fax: Referral ID Status Reason Start Date Expiration Date Visits Requested Visits Authorized [id number] Pending Review Specialty Services Required 4 07/01/2025 1 1 Encounter Details Date Type Department Care Team (Late st Contact Info) Description 06/30/2024 Telephone [facility] Internal Medicine/Kayden Morse MD [address] [facility] [address] [place] [address] Jenn Zheng LPN Social History Tobacco Use Types Packs/Day Years [...] How often do you attend chur or church services? More than 4 times per year 04/17/2023 Do you belong to any clubs o r organizations such as taoist groups, unions, fraternal or athletic groups, or [...] Answer Date Recorded Total Score 0 06/10/2024 [facility] of Occupat ional Health - [...] Recorded Do you need help finding a steward health care system career center and/or a training program? No [...] encounter Miscellaneous Notes * Telephone Encounter - Jenn Zheng LPN - 06/30/2024 3:09 PM EDT Pt called. Wants a GI referral for him to look more into his abdominal pain. I do not see where his surgery has been re-scheduled yet. Please advise. * Telephone Encounter - TERRY Monteiro - 06/30/2024 3:09 PM EDT Referral in * Telephone Encounter - Prisca Burnett - 06/30/2024 3:09 PM EDT Patient's notified documented in this encounter Plan of Treatment Upcoming Encounters Date Type Department Care Team (Late st Contact Info) Description 06/19/2025 10:20 AM EDT Office Visit [facility] Internal Medicine/Kayden Morse MD [address] [facility] [address] [place] [address] Leeann Marshall APRN-CNP [address] [facility] [address] [place] [address] 07/22/2025 11:00 AM EST Office Visit [facility] Adult Endocrinology, A Department of [facility] [address] [facility] [address] [place] [address] Alea Mckenzie MD [address] [facility] [place] [address] 12/14/2025 3:15 PM EDT Office Visit [facility] [address] [place] [address] [place] [address] Nathan Blankenship MD [address] [place], [place] [phone] Scheduled Referrals Name Type Priority Associated Diagnoses Order Schedule [facility] Outpatient Referral Routine Abdominal pain, unspecified abdominal location 1 Occurrences starting 07/01/2024 until 07/01/2025 documented as of this encounter Goals Goal Patient Goal Type Associated Problems Recent Progress Patient-Stated? Author Return home General Yes Adeline Tran, RN Note: Evaluation of progress towards goal: Plan to return home with spouse. documented as of this encounter Visit Diagnoses Diagnosis Abdominal pain, unspecified abdominal location- Primary documented in this encounter Additional Health Concerns Assessment Noted Time PHQ-9 Depression Total Score: 0 06/10/20 24 11:27 AM EDT documented as of this encounter Care Teams Administrative Project Coordinator Relationship Specialty Start Date End Date Leeann Marshall APRN-CNP [address] [facility] [address] [place] [address] PCP - General Internal Medicine 11/15/23 documented as of this encounter
--- OUTSIDE RECORDS SUMMARY | 2025-03-21 17:42 | XMS_ITS | Encounter Summary ---
Author Organization [employer] Address [id number] [address] [place] [address] Care Team Providers Care Hospice/Home Health Aide Name Role Phone Leeann Marshall SALES REPRESENTATIVE PUBLICATIONS-[employer] DISTRIBUTION PLANT OPERATOR Primary Care Provider Reason for Visit * Reason Comments Med Refill Encounter Details Date Type Department Care Team (Late Contact Info) Description 02/22/2023 Refill [facility] Internal Medicine - Family Medicine [address] [place] [address] Tom Pires, [address] [place] [address] Essential (primary) hypertension Social History Tobacco Use [...] [facility] Internal Medicine/Kayden Morse MD [address] [facility] [address] [place] [address] Leeann Marshall APRN-CNP [address] [facility] [address] [place] [address] 07/22/2025 11:00 AM EST Office Visit [facility] Adult [facility]ology, A Department of [facility] [address] [facility] [address] [place] [address] Alea Mckenzie MD [address] [facility] [place] [address] 12/14/2025 3:15 PM EDT Office Visit [facility] [address] [place] [address] [place] [address] Nathan Blankenship MD [address] [place] [address] documented as of this encounter Visit Diagnoses Diagnosis Essential (primary) hypertension Unspecified essential hypertension documented in this encounter Additional Health Concerns Assessment Noted Time PHQ-9 Depression Total Score: 0 02/14/20 23 3:37 PM EDT documented as of this encounter Care Teams Hospice/Home Health Aide Relationship Specialty Start Date End Date Leeann Marshall APRN-CNP [address] [facility] [address] [address] PCP - General Internal Medicine 11/15/23 documented as of this encounter
--- OUTSIDE RECORDS SUMMARY | 2025-03-21 17:42 | XMS_ITS | Encounter Summary ---
Author Organization [facility] Address [address] [place] [address] Phone Care Team Providers Care Concrete Block Plant Supervisor Name Role Phone AlkakrunalTom DO Primary Care Provider [phone]- [phone] Veronica De Jesus COMPOSITION WORKER-JAVA LEAD ARCHITECT Primary Care Provider U Leeann Monroy COMPOSITION WORKER-JAVA LEAD ARCHITECT Primary Care Provider [phone] Leeann Marshall COMPOSITION WORKER-JAVA LEAD ARCHITECT Primary Care Provider +1 -[phone] Riley Watts DO Unavailable Encounter Details Date Type Department Care Team (Late st Contact Info) Description 10/07/2023 Scanned Document [facility] [address] [place] [phone] Scanning, Generic Provider Social History Tobacco Use [...] Description 03/24/2026 10:00 AM EDT Office Visit [facility] [address] [facility] [address] [place] [address] Riley Watts DO [address] [facility] [address] [place] [address] documented as of this encounter Visit Diagnoses Not on filedocumented in this encounter Care Teams Concrete Block Plant Supervisor Relationship Specialty Start Date End Date Pranay Tom GandhiDO PCP - General 03/15/23 10/16/23 Veronica De Jesus, COMPOSITION WORKER-[facility] PCP - General Family Medicine 10/17/23 12/03/23 Leeann Marshall, COMPOSITION WORKER-[facility] PCP - General Internal Medicine 12/04/23 07/15/24 Leeann Marshall, COMPOSITION WORKER-[facility] [address] [facility] [address] [place] [address] PCP - General Internal Medicine 07/16/24 Riley Watts DO [address] [facility] [address], [address] [place] [address] Consulting Physician Cardiology 07/16/24 documented as of this encounter
--- OUTSIDE RECORDS SUMMARY | 2025-03-21 17:42 | XMS_ITS | Encounter Summary ---
Author Organization [facility] [employer] Address [id number] [address] [place] [address] Care Team Providers Care Network Systems Consultant Name Role Phone Leeann Marshall DEGREASING SOLUTION MIXER-CLINICAL EXERCISE SPECIALIST Primary Care Provider Encounter Details Date Type Department Care Team (Late st Contact Info) Description 08/20/2024 Telephone [facility] Internal Medicine/Kayden Morse MD [address] [place] [phone] Cony Bahena, TAYLOR Social History Tobacco Use [...] often do you attend chur ch or rastafarian services? More than 4 times per year [...] Answer Date Recorded Total Score 0 06/10/2024 [facility] of Occupat ional Health - Occupational Stress [...] Recorded Do you need help finding a [facility] medical centeral career center and/or a training [...] 10:20 AM EDT Office Visit [facility] Internal Medicine/Kayden Morse MD [address] [facility] [address] [place] [address] Leeann Marshall APRN-CLINICAL EXERCISE SPECIALIST [address] [facility] [address] [place] [address] 07/22/2025 11:00 AM EST Office Visit [facility] Adult Endocrinology, A Department of [facility] [address] [facility] [address] [place] [address] Alea Mckenzie MD [address] [facility] [place] [address] 12/14/2025 3:15 PM EDT Office Visit [facility] [address] [place] [address] A [facility] [place] [address] Nathan Blankenship MD [address] [place] [address] documented as of this encounter Goals Goal [...] documented as of this encounter Care Teams Network Systems Consultant Relationship Specialty Start Date End Date Leeann Marshall APRN-QI [address] [facility] [address] [place] [address] PCP - General Internal Medicine 11/15/23 documented as of this encounter
--- OUTSIDE RECORDS SUMMARY | 2025-03-21 17:42 | XMS_ITS | Encounter Summary ---
Author Organization [facility] tem Address [id number] [address] [place] [address] Care Team Providers Care Sheet Metal Insulator Name Role Phone Leeann Marshall APRN-MEDICAL NUMERICAL CONTROL OPERATOR Primary Care Provider [phone]- [phone] Reason for Referral * Consultation (Routine) - Closed Specialty Diagnoses / Procedures Referred By Ish narvaez Referred To Contact Orthopedic Surgery Diagnoses Nontraumatic complete tear of right rotator cuff Tom Pires DO [address] [place] [address] Phone: tel: fax: Alek Gallego Jr., DO [address] [facility] [address] [place] [address] Phone: tel: fax: Referral ID Status Reason Start Date Expiration Date V isits Requested Visits Authorized [id number] Closed Specialty Services Required 10/03/2022 10/03/2023 1 1 Encounter Details Date Type Department Care Team (Late st Contact Info) Description 10/03/2022 Orders Only [facility] Internal Medicine - Family Medicine [address] [place] [address] Tom Pires DO [address] [place] [address] Nontraumatic complete tear of right rotator cuff (Primary Dx) Social History Tobacco Use Types [...] [facility] Internal Medicine/Kayden Morse MD [address] [facility] [address] [place] [phone] Leeann Marshall APRN-MEDICAL NUMERICAL CONTROL OPERATOR [address] [facility] [address] [place] [address] 07/22/2025 11:00 AM EST Office Visit [facility] Adult [facility]ocr[facility]ology, A Department of [facility] [address] [facility] [address] [place] [address] Alea Mckenzie MD [address] [facility] [place] [address] 12/14/2025 3:15 PM EDT Office Visit [facility] [address] [facility] A [facility] [place] [address] Nathan Blankenship MD [address] [place] [address] Scheduled Referrals Name Type Priority Associated Diagnoses Order Schedule Ambulatory referral to Orthopedic Surgery Outpatient Referral Routine Nontraumatic complete tear of right rotator cuff 1 Occurrences starting 10/03/2022 until 10/03/2023 documented as of this encounter Visit Diagnoses Diagnosis Nontraumatic complete tear of right rotator cuff- Primary documented in this encounter Additional Health Concerns Assessment Noted Time PHQ-9 Depression Total Score: 6 09/25/19 23 3:43 PM EST documented as of this encounter Care Teams Sheet Metal Insulator Relationship Specialty Start Date End Date Leeann Marshall APRN-MEDICAL NUMERICAL CONTROL OPERATOR [address] [facility] [address] [place] [address] PCP - General Internal Medicine 11/15/23 documented as of this encounter
--- OUTSIDE RECORDS SUMMARY | 2025-03-21 17:42 | XMS_ITS | Encounter Summary ---
[id number] [address] [place] [address] Care Team Providers Care Aircraft Powerplant Repairer Name Role Phone Leeann Marshall DIRECTOR OF PSYCHOLOGY-ENVIRONMENTAL PROTECTION INSPECTOR Primary Care Provider Reason for Visit * Reason Onset Date Comments Med Refill 04/17/2023 Encounter Details Date Type Department Care Team (Late st Contact Info) Description 04/17/2023 Refill [facility] Internal Medicine - Family Medicine [address] [place] [id number] Tom Pires, [address] [place] [address] Type 2 diabetes mellitus with diabetic peripheral angiopathy without gangrene, with long-term current use of insulin ([facility]) (Primary Dx) Social History Tobacco Use Types [...] week 04/17/2023 How often do you attend [facility] or hoahaoism services? More than 4 times per year [...] 04/17/2023 PHQ-2 Answer Date Recorded Total Score 14 04/17/2023 [facility] [...] as of this encounter Functional Status * Audit-C Score Answer Date of Assessment Author 0 04/17/2023 2:32 PM EDT Farhana Huitron * Question Answer Date of Assessment Author Q1: How often do you have a drink containing alcohol? Never 04/17/2023 2:32 PM EDT Farhana Huitron Q2: How many drinks containing alcohol do you have on a typical day when you are drinking? Patient does not drink 04/17/2023 2:32 PM EDT Farhana Huitron Q3: How often do you have six or more drinks on one occasion? Never 04/17/2023 2:32 PM EDT Farhana Huitron documented as of this encounter Plan of Treatment Upcoming Encounters Date Type Department Care Team (Late st Contact Info) Description 06/19/2025 10:20 AM EDT Office Visit [facility] Internal Medicine/Kayden Morse MD [address] [place] [id number] Leeann Marshall, SONIDO-ENVIRONMENTAL PROTECTION INSPECTOR [address] [place] [address] 07/22/2025 11:00 AM EST [facility] [address] [place] [address] Alea Mckenzie MD [address] [place] [address] 12/14/2025 3:15 PM EDT Office Visit [facility] [address] [place] [address] [address] [facility] [place] [address] Nathan Blankenship MD [facility] [place] [address] documented as of this encounter Visit Diagnoses Diagnosis Type 2 diabetes mellitus with diabetic peripheral angiopathy without gangrene, with long-term current use of insulin ([facility])- Primary documented in this encounter Additional Health Concerns Assessment Noted Time PHQ-9 Depression Total Score: 14 023 2:32 PM EDT documented as of this encounter Care Teams Aircraft Powerplant Repairer Relationship Specialty Start Date End Date Leeann Marshall APRN-QI [address] [place] [id number] PCP - General Internal Medicine 11/15/23 documented as of this encounter
--- OUTSIDE RECORDS SUMMARY | 2025-03-21 17:42 | XMS_ITS | CCD ---
Author Organization [facility] Care Team Providers Care Emergency Preparedness Manager Name Role Phone ARLENEZL, CHAN E Unavailable Unavailable FENZL, CHAN E Unavailable Unavailable NOT SPECIFIED, Unavailable Unavailable FENZL, CHAN Heck Unavailable Unavailable NOT SPECIFIED, Unavailable Unavailable FIELER KARRI Unavailable Unavailable NO, PHYSICIAN Unavailable Unavailable MELODIE MONROE Admitting Unavailable MELODIE MONROE Attending Unavailable Provider, No Primary Care Provider UnavailDO Dane Moreno Emergency Provider Unavailable SIVA, DR ROWE Primary Care Unavailable LESLYE, DR CHAN Gray Attending Unavailable LESLYE, DR CHAN Gray Admitting Unavailable LESLYE, DR CHAN Gray Consulting Unavailable CELINE OLIVERA Consulting Unavailable HAZELREMACO OMALLEY Consulting Unavailable YUHAS, DR ROWE Admitting Unavailable YUHAS, DR ROWE Consulting Unavailable YUHAS, DR ROWE Primary Care Unavailable YUHAS, DR ROWE Attending Unavailable YUHAS, DR ROWE Admitting Unavailable YUHAS, DR ROWE Attending Unavailable YUHAS, DR ROWE Primary Care Unavailable YUHAS, DR ROWE Consulting Unavailable YUHAS, DR ROWE Attending Unavailable YUHAS, DR ROWE Admitting Unavailable YUHAS, DR ROWE Primary Care Unavailable YUHAS, DR ROWE Primary Care Unavailable LESLYE, DR CHAN Gray Consulting Unavailable LESLYE, DR CHAN Gray Attending Unavailable LESLYE, DR CHAN Gray Admitting Unavailable Sami Brunson Consulting Unavailable YUHAS, DR ROWE Primary Care Unavailable BENEANTHONYCT, DR SOSA Attending Unavailable BENEDICT, DR SOSA Admitting Unavailable BENEDICT, DR SOSA Consulting Unavailable YUHAS, DR ROWE Admitting Unavailable YUHAS, DR ROWE Primary Care Unavailable YUHAS, DR ROWE Consulting Unavailable YUHAS, DR ROWE Attending Unavailable ZIEBER, DR IAN Gray Consulting Unavailable YUHAS, DR ROWE Admitting Unavailable YUHAS, DR ROWE Primary Care Unavailable YUHAS, DR ROWE Consulting Unavailable YUHAS, DR ROWE Attending Unavailable YUHAS, DR ROWE Consulting Unavailable YUHAS, DR ROWE Attending Unavailable YUHAS, DR ROWE Primary Care Unavailable YUHAS, DR ROWE Admitting Unavailable YUHAS, DR ROWE Consulting Unavailable YUHAS, DR ROWE Attending Unavailable YUHAS, DR ROWE Admitting Unavailable YUHAS, DR ROWE Primary Care Unavailable [place], DR LULA Hall Consulting Unavailable GAVIN, DR CHAN Gray Consulting Unavailable GAVIN, DR CHAN Gray Attending Unavailable GAVIN, DR CHAN Gray Admitting Unavailable YUHAS, DR ROWE Primary Care Unavailable Yujose ramons, DO Tom Primary Care Provider MD Lula Del Rosario Attending Provider Lula Del Rosario Unavailable No, Physician Primary Care Provider Unavailabl ETTA Nolasco Attending Unavailabl e NO, PHYSICIAN Primary Care Unavailable ETTA OAKES Referring Unavailabl e VIOLETTE, ETTA ORO Admitting Unavailabl e NO, PHYSICIAN Primary Care Unavailable Tom Paniagua Unavailable Unavailable Unavailable Dr. Tom Paniagua Primary Care Unavaila domingo Tovar, Dr. Stone Referring Unavaila domingo Tovar, Dr. Stone Attending UnavailVeronica Vaughan Primary Care Provider Leeann Diaz Primary Care Provider Skyler Balbuena Attending Unavailable Skyler Balbuena Admitting Unavailable Provider, None Primary Care Unavailable Tom Paniagua Primary Care Provider Tom Gottlieb MD Unavailable Leeann Diaz Primary Care Provider Gita Watts DO Unavailable Tom Paniagua MD Primary Care Provider Unavailable Primary Care Provider UnavailPHIL Rodney Referring Unavailable PRITESH GILES Attending Unavailable Leeann Diaz Primary Care Provider Tom Paniagua DO Primary Care Provider Liza HEAD-Veronica VILLASEÑOR Primary Care Provider VANESSA PRABHAKAR Attending Unavailable CASTILLO, LEEANN Referring Unavailable CASTILLO, LEEANN Primary Care Unavailable TIM NUNEZ Attending Unavailable CASTILLO, LEEANN Referring Unavailable CASTILLO, LEEANN Primary Care Unavailable TIM NUNEZ Attending Unavailable CASTILLO, LEEANN M Referring Unavailable CASTILLO, LEEANN M Primary Care Unavailable Castillo CRIMINAL JUSTICE PROFESSOR-MONEY COUNTER, Leeann Primary Care Provider Vincent Oliveira Attending Unavailab Vincent Kearns Admitting Unavailab Tom Woo Primary Care Unavailable SHOBHA DELONG Referring Unavailable CASTILLO, LEEANN Primary Care Unavailable ALEA MCKENZIE Attending Unavailable CASTILLO, LEEANN Referring Unavailable CASTILLO, LEEANN Primary Care Unavailable TIM NUNEZ Attending Unavailable CASTILLO, LEEANN Referring Unavailable CASTILLO, LEEANN Primary Care Unavailable SHOBHA DELONG Attending Unavailable CASTILLO, LEEANN Referring Unavailable CASTILLO, LEEANN Primary Care Unavailable CASTILLO, LEEANN Primary Care Unavailable JOSE GOSS Attending Unavailable CASTILLO, LEEANN Referring Unavailable CASTILLO, [...] Care Unavailable CASTILLO, LEEANN Referring Unavailable CASTILLO, ELEANN Primary Care Unavailable CASTILLO, LEEANN Referring Unavailable [...] Referring Unavailable CASTILLO, LEEANN Primary Care Unavailable KIM, YI J Referring Unavailable CASTILLO, LEEANN Primary Care Unavailable CASTILLO, LEEANN Referring Unavailable CASTILLO, LEEANN Primary Care Unavailable KIM, YI J Referring Unavailable CASTILLO, LEEANN Primary Care Unavailable KIM, YI J Referring Unavailable CASTILLO, LEEANN Primary Care Unavailable APOLINAR MCKENZIE Attending Unavailable ALEA MCKENZIE Referring Unavailable CASTILLO, LEEANN Primary Care Unavailable NITHIN OROZCO I Referring Unavailable CASTILLO, LEEANN Primary Care Unavailable CASTILLO, LEEANN Primary Care Unavailable ELIZABETH STEVENS Attending Unavailable CASTILLO, LEEANN Primary Care Unavailable DOMITILA KUO Attending Unavailable SHAI FARFAN Referring Unavailable CASTILLO, LEEANN Primary Care Unavailable GITA WATTS Attending Unavailable GITA WATTS Referring Unavailable CASTILLO, LEEANN M Primary Care Unavailable Castillo CRIMINAL JUSTICE PROFESSOR-MONEY COUNTER, [facility] Primary Care Provider Gita Watts DO Unavailable CASTILLO, LEEANN Attending Unavailable CASTILLO, LEEANN Referring Unavailable CASTILLO, LEEANN Primary Care Unavailable ALEA MCKENZIE Attending Unavailable CASTILLO, LEEANN Referring Unavailable CASTILLO, LEEANN Primary Care Unavailable CASTILLO, LEEANN Attending Unavailable CASTILLO, LEEANN Referring Unavailable CASTILLO, LEEANN Primary Care Unavailable CASTILLO, LEEANN Attending Unavailable CASTILLO, LEEANN Referring Unavailable CASTILLO, LEEANN Primary Care Unavailable NITHIN OROZCO I Attending Unavailable CASTILLO, LEEANN Referring Unavailable CASTILLO, LEEANN Primary Care Unavailable CASTILLO, LEEANN Attending Unavailable CASTILLO, LEEANN Referring Unavailable CASTILLO, LEEANN Primary Care Unavailable CASTILLO, LEEANN Attending Unavailable CASTILLO, LEEANN Referring Unavailable CASTILLO, LEEANN Primary Care Unavailable KIM, YI J Attending Unavailable KIM, YI J Referring Unavailable KIM, YI J Attending Unavailable KIM, YI J Referring Unavailable KIM, YI J Referring Unavailable KIM, YI J Attending Unavailable RUSHER, MC Rojo Attending Unavailable TOM PANIAGUA Referring Unavailable KIM, YI Melvin Attending Unavailable RUSHER, MC Rojo Attending Unavailable RUSHER, MC S Attending Unavailable RUSHER, MC S Referring Unavailable RUSHER, MC Rojo Attending Unavailable CAROLYN RICHARDS Attending Unavailable MC CHATMAN Attending Unavailable MC CHATMAN Referring Unavailable MC CHATMAN Attending Unavailable MC CHATMAN Attending Unavailable NINI LEOS Attending Unavailable MC CHATMAN Attending Unavailable MC CHATMAN Attending Unavailable MC CHATMAN Attending Unavailable YI KIM Attending Unavailable YI KIM Referring Unavailable Medications Current Medications Medication Drug Class(es) Dates Sig (Normalized) Sig (Original) acetaminophen 500 mg oral tablet (20 sources) Start: 10-06-2023 acetaminophen (TYLENOL EXTRA STRENGTH) 500 mg tablet 10/06/2023 Active Start: 10-06-2023 End: 10-09-2023 take 2 tablets by mouth every eight hours as needed for pain Acetaminophen 500 mg Tablet Active 1000 MG PO Every 8 hours as needed for pain 0 October 09, 2023 1:12pm Start: 10-06-2023 End: 10-09-2023 take 1000 mg by mouth every eight hours Acetaminophen Active 1000 MG PO Every 8 hours 0 October 09, 2023 12:12pm Start: 10-24-2018 End: 11-22-2018 take 2 tablets by mouth every six hours as needed for pain Acetaminophen 325 mg Tablet Discontinued 650 MG PO Every 6 hours as needed for Mild Pain 0 October 24, 2018 1:00am November 22, 2018 7:30pm Start: 10-24-2018 End: 11-22-2018 take 650 mg by mouth every six hours Acetaminophen Discontinued 650 MG PO Every 6 hours 0 October 24, 2018 12:00am November 22, 2018 6:30pm amitriptyline hydrochloride 10 mg oral tablet (2 sources) Tricyclic Antidepressant Start: 09-05-2010 take 1 tablet by mouth at bedtime Amitriptyline HCl 10 mg 1tabs Orally hs Sep, Active amLODIPine (20 sources) Dihydropyridine Calcium Channel Shayne Start: 11-20-2021 take 1 tablet by mouth once daily Amlodipine Active 1 TAB PO DAILY November 20, 2021 3:25pm Start: 08-15-2018 End: 08-26-2024 take 1 tablet by mouth once daily Amlodipine 10 mg tablet Discontinued 10 MG PO Daily November 29, 2018 9:10am September 26, 2023 7:37pm ARIPiprazole (2 sources) Atypical Antipsychotic Abilify A ctive aspirin 81 mg delayed release oral tablet (20 sources) Platelet Aggregation Inhibitor, Nonsteroidal Anti-inflammatory Drug Start: 10-08-2023 aspirin 81 mg 10/08/2023 Active Start: 04-13-2020 take 1 tablet by lita th twice daily aspirin, enteric coated (ECOTRIN LOW STRENGTH) 81 mg EC tablet Take 1 tablet by mouth twice daily. 60 tablet 04/13/2020 Active Start: 09-11-2017 End: 08-15-2018 take 1 tablet by mouth once daily Aspirin (Aspir-81) 81 mg Tablet,Delayed Release (Dr/Ec) Discontinued 81 MG PO Daily September 11, 2017 1:00am August 15, 2018 3:28pm atorvastatin 80 mg oral tablet (20 sources) HMG-CoA Reductase Inhibitor Start: 12-16-2024 Atorvastatin 80 mg tablet Active 40 MG PO Every evening December 16, 2024 10:54am Start: 09-29-2024 take 1 tablet by lita th in the morning atorvastatin (LIPITOR) 40 mg tablet Take 1 tablet (40 mg total) by mouth in the morning. 90 tablet 3 09/29/2024 Active Start: 10-08-2023 End: 09-29-2024 take 0.5 tablet by mouth once daily atorvastatin (Lipitor) 80 MG tablet Take 80 mg by mouth Daily 1/2 tab daily 10/08/2023 Active Start: 10-08-2023 End: 12-16-2024 take 1 tablet by mouth once daily atorvastatin (Lipitor) 80 mg tablet Indications: Hyperlipidemia, unspecified hyperlipidemia type TAKE 1 TABLET BY MOUTH ONCE DAILY. 90 tablet 3 02/28/2024 Active Start: 09-17-2017 End: 10-20-2017 take 1 tablet by mouth once daily in the evening Atorvastatin 20 mg Tablet Discontinued 20 MG PO Every evening September 17, 2017 1:00am October 20, 2017 6:04pm Benztropine (5 sources) Anticholinergic, Antihistamine Start: 11-20-2021 take 1 tablet by mouth twice daily Benztropine Active 1 TAB PO TWICE A DAY November 20, 2021 3:25pm Start: 11-06-2018 End: 11-22-2018 take 1 tablet by mouth once daily in the morning Benztropine 0.5 mg Tablet Discontinued 0.5 MG PO Every morning 14 November 06, 2018 1:00am November 22, 2018 7:30pm bisacodyl 10 mg rectal suppository (2 sources) Stimulant Laxative Start: 10-06-2023 Bisacodyl A ctive 10 MG WV Daily 0 October 06, 2023 12:00am Start: 09-27-2023 End: 10-15-2023 bisacodyL (DULCOLAX) 10 mg s uppository Insert 1 suppository (10 mg total) into the rectum in the morning. 0 09/27/2023 10/15/2023 Discontinued (Therapy completed) busPIRone hydrochloride 10 mg oral tablet (20 sources) Start: 12-16-2024 take 2 tablets by mouth in the morning busPIRone (Buspar) 10 MG tablet Take 20 mg by mouth in the morning and 20 mg before bedtime. 12/16/2024 Active Start: 06-19-2024 take 1 tablet by lita th in the morning busPIRone (Buspar) 5 MG tablet Take 5 mg by mouth in the morning and 5 mg before bedtime. 06/19/2024 Active Start: 09-26-2023 End: 10-15-2023 busPIRone (BUSPAR) 30 mg tab let 30 mg twice a day 0 09/26/2023 10/15/2023 Discontinued (Therapy completed) Start: 09-26-2023 take 3 tablets by mo uth twice daily Buspirone 10 mg Tablet Active 30 MG PO Twice daily September 26, 2023 1:00am Start: 09-26-2023 take 30 mg by mouth [...] 2021 3:25pm Start: 11-06-2018 End: 09-26-2023 take 2 tablets by mouth three times daily Buspirone 10 mg Tablet Discontinued 20 MG PO Three times daily 270 November 29, 2018 9:10am September 26, 2023 7:45pm Start: 11-06-2018 End: 09-26-2023 take 20 mg by mouth three times daily Buspirone Discontinued 20 MG PO Three times daily 270 November 29, 2018 8:10am September 26, 2023 6:45pm Start: 10-20-2018 End: 11-06-2018 take 1 tablet by mouth three times daily Buspirone 15 mg Tablet Discontinued 15 MG PO Three times daily October 24, 2018 11:35am November 06, 2018 3:29pm take 2 tablets by mo uth twice daily busPIRone (Buspar) 10 mg tablet Take 2 tablets (20 mg) by mouth 2 times a day. Active take 20 mg by mouth in the morning busPIRone HCl (BUSPAR PO) 20 mg in the morning and 20 mg before bedtime. Active take 1 tablet by lita th twice daily busPIRone (Buspar) 10 mg tablet Take 1 tablet (10 mg) by mouth 2 times a day. Active busPIRone HCl (B USPAR PO) BuSpar Active take 1 tablet by lita th three times daily busPIRone (BUSPAR) 10 MG tablet Take 1 (one) tablet (10 mg total) by mouth 3 (three) times a day . 0 Active BuSpar Active cariprazine 6 mg oral capsule (2 sources) Atypical Antipsychotic Start: 04-09-2019 VRAYLAR 6 mg cap Take 1.5 mg by mouth. 04/09/2019 Active carvedilol 12.5 mg oral tablet (20 sources) alpha-Adrenergic Shayne, beta-Adrenergic Sahyne Start: 04-17-2023 End: 12-04-2025 take 1 tablet by mouth twice daily carvedilol (Coreg) 12.5 mg tablet Indications: Ischemic cardiomyopathy , Primary hypertension Take 1 tablet (12.5 mg) by mouth 2 times a day. 180 tablet 3 12/04/2024 12/04/2025 Active cholecalciferol 0.125 mg oral tablet (20 sources) Vitamin D Start: 03-14-2024 End: 03-04-2025 take 1 tablet by mouth in the morning cholecalciferol, vitamin D3, 5,000 units tablet TAKE 1 TABLET (5,000 UNITS TOTAL) BY MOUTH IN THE MORNING. 90 tablet 3 03/04/2025 Active Start: 09-26-2023 take 1 capsule by mo uth once daily Cholecalciferol (Vitamin D3) 125 mcg (5,000 unit) capsule Active 5000 UNIT PO Daily September 26, 2023 1:00am Cholecalciferol (VITAMIN D3) 1.25 MG (96729 UT) CAPS Take by mouth Active take 1 tablet by lita th in the morning cholecalciferol, vitamin D3, 5,000 units tablet Take 1 tablet (5,000 Units total) by mouth in the morning. Active cloNIDine (20 sources) Central alpha-2 Adrenergic Agonist Start: 11-20-2021 take 1 tablet by mouth twice daily Clonidine Hcl Active 1 TAB PO TWICE A DAY November 20, 2021 3:25pm Start: 10-20-2018 End: 09-26-2023 take 1 tablet by mouth three times daily Clonidine Hcl 0.1 mg tablet Discontinued 0.1 MG PO Three times daily 90 November 29, 2018 9:10am September 26, 2023 7:38pm Start: 10-20-2018 End: 10-24-2018 take 1 tablet by mouth every six hours as needed for hypertension Clonidine Hcl 0.1 mg Tablet Discontinued 0.1 MG PO Q6H as needed for Hypertension October 20, 2018 1:00am October 24, 2018 11:28am Start: 08-15-2018 End: 10-20-2018 take 0.1 mg by mouth twice daily Clonidine Hcl 0.2 mg Tablet Discontinued 0.1 MG PO Twice daily August 15, 2018 1:00am October 20, 2018 12:50pm Start: 08-15-2018 End: 10-20-2018 take 0.1 mg by mouth twice daily Clonidine Hcl Discont inued 0.1 MG PO Twice daily August 15, 2018 12:00am October 20, 2018 11:50am cloNIDine HCl Ac tive clopidogrel 75 mg oral tablet (20 sources) P2Y12 Platelet Inhibitor Start: 01-22-2024 End: 01-21-2025 clopidogreL (PLAVIX) 75 mg tablet Take 1 tablet (75 mg total) by mouth. 01/11/2025 Active CPAP Mask and supplies misc (2 [...] 30 mg oral tablet (2 sources) Uncompetitive T-pahwpc-E-aspartat e Receptor Antagonist, Sigma-1 Agonist Start: 09-09-2020 Nelson DMT 30-30 MG 1 tablet Orally every [...] 283 mg/5 mL Enema Active 283 MG W[place] Daily October 06, 2023 12:00am DULoxetine 60 mg delayed release oral capsule (20 sources) Serotonin and Norepinephrine Reuptake Inhibitor Start: 06-02-2022 take 1 capsule by mouth in the morning DULoxetine (CYMBALTA) 60 mg capsule Take 1 capsule (60 mg total) by mouth in the morning. 09/29/2024 Active Start: 06-02-2022 End: 12-16-2024 take 1 capsule by mouth once daily DULoxetine (Cymbalta) [address] capsule Take 30 mg by mouth Daily 06/09/2024 Active Start: 06-02-2022 End: 09-29-2024 DULoxetine (CYMBALTA) 60 mg capsule Take 90 mg by mouth in the morning. 90 mg in morning . 06/02/2022 09/29/2024 Discontinued (Duplicate Listing) take 1 capsule by [facility] in the morning DULoxetine HCl 60 MG Capsule Delayed Release Sprinkle Take 60 mg by mouth in the morning. Active empagliflozin 25 mg oral tablet (20 sources) Sodium-Glucose Cotransporter 2 Inhibitor Start: 09-26-2023 End: 05-23-2024 take 25 mg by mouth once daily Jardiance 25 MG Take 25 mg by mouth Daily 08/17/2024 Active Start: 02-05-2023 take 1 tablet by lita th once daily Jardiance 10 MG Oral Tablet TAKE 1 TABLET BY MOUTH ONCE DAILY Quantity: 0 Refills: 0 Ordered: 06-Feb-2023 DO Start : 05-Feb-2023 Active Exenatide Microspheres (Bydureon Bcise) 2 mg/0.85 mL auto-injector (1 source) Start: 11-20-2021 Exenatide Microspheres (Bydureon Bcise) 2 mg/0.85 mL auto-injector Active 2 MG SUBCUT Every Week November 20, 2021 3:25pm furosemide 20 mg oral tablet (20 sources) Loop Diuretic Start: 08-19-2024 End: 08-19-2025 take 1 tablet by mouth once daily furosemide (LASIX) 20 mg tablet Take 1 tablet (20 mg total) by mouth daily. 90 tablet 1 10/07/2024 Active Start: 08-19-2024 End: 08-19-2025 take 1 tablet by mouth every other day furosemide (LASIX) 20 mg tablet Take 1 tablet (20 mg total) by mouth every other day. 09/29/2024 Active Start: 09-15-2023 End: 10-15-2023 take 1 tablet by mouth once daily furosemide (LASIX) 40 mg tablet Indications: Chronic diastolic CHF (congestive heart failure) (CMS-HCC) Take 1 tablet (40 mg total) by mouth daily. 7 tablet 1 09/15/2023 10/15/2023 Discontinued (Therapy completed) gentamicin 0.001 mg/mg topic al ointment (17 sources) Start: 03-17-2025 gentamicin (Ga ramycin) 0.1 % ointment Indications: Ulcer of right foot with fat layer exposed (HCC) Apply to wound once daily. 30 g 03/17/2025 Active Start: 04-07-2024 End: 09-26-2024 gentamicin (Garamycin) 0.1 % ointment Indications: Ulcer of right foot with fat layer exposed (CMS/HCC) Apply to wound once daily. 30 g 04/07/2024 09/26/2024 Discontinued (Therapy completed) Haloperidol (1 source) Typical Antipsychotic Start: 11-20-2021 take 0.5 tablet by mouth twice daily Haloperidol Active 0.5 TAB PO TWICE A DAY November 20, 2021 3:25pm hydrOXYzine hydrochloride 25 mg oral tablet (18 sources) Antihistamine Start: 08-06-2024 End: 01-14-2025 take 1 tablet by mouth four times daily as needed for anxiety hydrOXYzine HCl (Atarax) 25 MG tablet TAKE 1 TABLET BY MOUTH 4 TIMES A DAY NEEDED FOR ANXIETY OR INSOMNIA 08/06/2024 Active Start: 01-28-2019 take 2 capsules by m outh every twenty-four hours as needed hydrOXYzine pamoate (VISTARIL) 25 mg capsule Take 50 mg by mouth at bedtime as needed. 01/28/2019 Active Start: 11-22-2018 End: 09-26-2023 take 2 tablets by mouth three times daily as needed for anxiety Hydroxyzine Hcl 25 mg tablet Discontinued 50 MG PO Three times daily as needed for Anxiety November 29, 2018 9:10am September 26, 2023 7:38pm Start: 11-22-2018 End: 09-26-2023 take 50 mg by mouth three times daily Hydroxyzine Hcl Discontinued 50 MG PO Three times daily November 29, 2018 8:10am September 26, 2023 6:38pm hyoscyamine sulfate 0.125 mg sublingual tablet (15 sources) Start: 10-22-2024 take 1 tablet by mouth every four hours as needed hyoscyamine (LEVSIN) 0.125 mg SL tablet Take 1 tablet (125 mcg total) by mouth every 4 (four) hours as needed for cramping. 30 tablet 10/22/2024 Active Start: 10-22-2024 hyoscyamine (L evsin) 0.125 MG SL tablet Take 125 mcg by mouth every 4 (four) hours if needed 10/22/2024 Active Insulin Glargine U-300 Conc (1 source) [...] pen injector (20 sources) Insulin Analog Start: 10-17-2024 ADMELOG SOLOST AR U-100 INSULIN 100 unit/mL insulin pen Indications: Type 2 diabetes mellitus with diabetic peripheral angiopathy without gangrene, with long-term current use of insulin ([facility]) Per scale up to 25 units 3 times daily with meals, max dose of 75 units daily 75 mL 3 10/17/2024 Active Start: 09-26-2023 End: 10-17-2024 inject 400 mg by subcutaneous injection four [...] than 400 mg/dL 15 mL 12 09/26/2023 10/17/2024 Discontinued Start: 09-26-2023 End: 10-06-2023 inject 1 dose by subcutaneous injection at bedtime Insulin Lispro (Humalog Kwikpen Insulin) 200 unit/mL (3 mL) insulin pen Discontinued 1 sliding scale dose SUBCUT Before meals and at bedtime September 26, 2023 1:00am October 06, 2023 12:25pm Start: 08-07-2023 HumaLOG KwikPe n Insulin 200 unit/mL (3 mL) insulin pen Indications: Type 2 diabetes mellitus with diabetic peripheral angiopathy without gangrene, with long-term current use of insulin ([facility]) Up to 20 units with meals + scale with meals, up to 100 units daily in divided doses 45 mL 3 08/07/2023 Active Start: 11-16-2022 HumaLOG KwikPe n 200 UNIT/ML Subcutaneous Solution Pen-injector PLEASE SEE ATTACHED FOR DETAILED DIRECTIONS Quantity: 30 Refills: 0 Ordered: 16-Nov-2022 DO Start : 16-Nov-2022 Active Insulin Lispro 1 00 UNIT/ML solution Inject under the skin in the morning and at noon and in the evening. Inject with meals. Active inject 100 [IU] by s ubcutaneous injection at mealtime insulin lispro (Admelog SoloStar) 100 UNIT/ML injection Inject under the skin in the morning and at noon and in the evening. Inject with meals. Active Insulin Lispro 1 00 UNIT/ML solution Inject under the skin 3 (three) times a day with meals. Active insulin lispro, 1 Unit Dial, (HUMALOG KWIKPEN) 100 UNIT/ML SOPN Inject into the skin 3 times daily Active 3 ml insulin lispro 50 unt/ml / insulin lispro protamine, human 50 unt/ml pen injector (4 sources) Insulin Analog insulin lispro protamin-lispro (HumaLOG Mix 50-50 KwikPen) 100 unit/mL (50-50) injection Inject under the skin 2 times a day with meals. Take as directed per insulin instructions. Per sliding scale Active labetalol hydrochloride 200 mg oral tablet (20 sources) beta-Adrenergic Shayne Start: take 1 tablet by mouth in the morning labetalol (Normodyne) 200 MG tablet Take 1 tablet by mouth in the morning and 1 tablet before bedtime. 09/22/2022 Active Start: 11-20-2021 take 1 tablet by lita th twice daily Labetalol Active 1 TAB PO TWICE A DAY November 20, 2021 3:25pm take 1 tablet by lita th twice daily labetalol (TRANDATE) 200 mg tablet Take 200 mg by mouth twice daily. Active Labetalol HCl Ac tive lactulose 667 mg/ml oral solution (1 source) Osmotic Laxative Start: 10-06-2023 take 30 g by mouth once daily Lactulose Active 30 GM PO Daily 0 October 06, 2023 12:00am lamoTRIgine 200 mg oral tablet (2 sources) Mood Stabilizer, Anti-epileptic Agent Start: 03-12-2019 take 1 tablet by mouth once daily at bedtime lamoTRIgine (LAMICTAL) 200 mg tablet TAKE 1 TABLET BY MOUTH EVERYDAY AT BEDTIME 1 03/12/2019 Active loperamide hydrochloride 2 mg oral capsule (1 source) Opioid Agonist Start: 10-06-2023 take 2 mg by mouth every two hours Loperamide Active 2 MG PO Q2H October 06, 2023 12:00am LORazepam 1 mg oral tablet (20 sources) Benzodiazepine Start: 01-18-2025 take 1 tablet by mouth every eight hours as needed for anxiety LORazepam (Ativan) 1 MG tablet TAKE 1 TABLET BY MOUTH EVERY 8 HOURS NEEDED FOR ANXIETY FOR UP TO 10 DAYS 01/18/2025 Active Start: 10-06-2023 End: 12-16-2024 take 1 tablet by mouth at bedtime as needed for anxiety Lorazepam 0.5 mg Tablet Discontinued 0.5 MG PO Bedtime as needed for Anxiety 0 October 06, 2023 1:00am December 16, 2024 10:58am Start: 09-26-2023 End: 09-29-2024 LORazepam (ATIVAN) 0.5 mg ta blet Indications: Cauda equina compression (CMS-HCC) Take 1mg in the morning and 0.5mg at bedtime 15 tablet 09/26/2023 09/29/2024 Discontinued (Discontinued by another clinician) Start: 09-26-2023 End: 12-16-2024 take 1 tablet by mouth once daily in the morning Lorazepam 1 mg tablet Discontinued 1 MG PO Every morning September 26, 2023 1:00am December 16, 2024 10:58am Start: 12-28-2022 take 0.5 tablet by m outh in the evening as needed LORazepam 1 MG Oral Tablet TAKE 1MG IN AM 1/2 TAB AT PM NEEDED Quantity: 0 Refills: 0 Ordered: 05-Feb-2023 DO Start : 28-Dec-2022 Active Start: 12-28-2022 LORazepam (ATI VAN) 1 mg tablet 1 mg in the morning and 1/2 at night 0 12/28/2022 Active Start: 11-21-2022 End: 09-26-2024 LORazepam 1 MG/0.5ML concent ration LORazepam 11/21/2022 09/26/2024 Discontinued (Therapy completed) Start: 09-11-2017 End: 10-20-2018 take 3 tablets by mouth twice daily as needed for anxiety Lorazepam 0.5 mg Tablet Discontinued 1.5 MG PO Twice daily as needed for Anxiety September 11, 2017 1:00am October 20, 2018 12:52pm Start: 09-11-2017 End: 10-20-2018 take 1.5 mg by mouth twice daily Lorazepam Discontinued 1.5 MG PO Twice daily September 11, 2017 12:00am October 20, 2018 11:52am losartan potassium 25 mg oral tablet (20 sources) Angiotensin 2 Receptor Shayne Start: 09-26-2023 End: 10-09-2023 take 1 tablet by mouth once daily losartan (Cozaar) 25 mg tablet Indications: Hypertension, unspecified type Take 1 tablet (25 mg) by mouth once daily. 90 tablet 02/18/2025 Active Start: 09-17-2017 End: 08-15-2018 take 1 tablet by mouth twice daily Losartan 50 mg Tablet Discontinued 50 MG PO Twice daily 60 September 17, 2017 1:00am August 15, 2018 3:28pm Start: 09-11-2017 End: 09-17-2017 take 1 tablet by mouth once daily Losartan 50 mg Tablet Discontinued 50 MG PO Daily September 11, 2017 1:00am September 17, 2017 11:36am MEDICATION, NON-DATABASE (2 sources) MEDICATION, NON- DATABASE supplements Active melatonin 3 mg oral tablet (20 sources) Start: 10-06-2023 End: 10-06-2023 take 1 tablet by mouth once daily at bedtime Melatonin 5 mg Tablet Discontinued 5 MG PO Daily at bedtime 0 October 06, 2023 1:00am October 06, 2023 3:10pm Start: 09-26-2023 End: 10-06-2023 take 2 capsules by mouth at bedtime as needed for sleep Melatonin 3 mg capsule Discontinued 6 MG PO Bedtime as needed for sleep September 26, 2023 1:00am October 06, 2023 12:25pm Start: 09-26-2023 End: 10-06-2023 take 6 mg [...] mouth nightly. 1-2 tabs as needed nightly 12/07/2022 Active Start: 11-21-2022 melatonin 3 MG tablet 11/21/2022 Active Start: 11-21-2022 Melatonin 1 MG capsule Melatonin 11/21/2022 Active take 2 capsules by m outh once daily at bedtime melatonin 3 mg capsule Take 2 capsules by mouth once daily at bedtime. Active Melatonin 3 MG O ral Tablet TAKE DIRECTED. Quantity: 0 Refills: 0 Ordered: 15-Mar-2023 DO Active metFORMIN (5 sources) Biguanide Start: 11-20-2021 [...] a meal Orally Once a day Active mirtazapine 15 mg oral tablet (20 sources) Start: 08-08-2024 take 1 tablet by mouth once daily at bedtime mirtazapine (REMERON) 15 mg tablet Take 1 tablet (15 mg total) by mouth once daily at bedtime. 08/08/2024 Active Start: 09-11-2017 End: 08-15-2018 take 1 tablet by mouth once daily at bedtime Mirtazapine 15 mg Tablet Discontinued 15 MG PO Daily at bedtime September 11, 2017 1:00am August 15, 2018 3:28pm mupirocin 0.02 mg/mg topical ointment (2 sources) RNA Synthetase Inhibitor Antibacterial Start: 04-01-2020 mupirocin (BACTROBAN ) 2 % ointment Indications: Pre-op exam , Primary osteoarthritis of right knee , Essential hypertension , S/P CABG (coronary artery bypass graft) , Unspecified sleep apnea , Prediabetes , Atherosclerosis of [place] coronary artery of [place] heart without angina pectoris , Vocal cord granuloma , Hyperlipidemia, unspecified hyperlipidemia type , Esophageal stricture Apply 0.5 inch with cotton swab (Q-tip) to each nostril in the morning and evening for 5 days prior to and including day of surgery. 22 g 04/01/2020 Active nitroglycerin 0.4 mg sublingual tablet (20 sources) Nitrate Vasodilator Start: 10-06-2023 nitroglyce rin (NITROSTAT) 0.4 MG SL tablet 10/06/2023 Active Start: 10-06-2023 End: 10-16-2024 nitroglycerin (Nitrostat) 0. 4 mg SL tablet Indications: CAD, multiple vessel Place 1 tablet (0.4 mg) under the tongue every 5 minutes if needed for chest pain. May repeat dose every 5 minutes for up to 3 doses total. 100 tablet 11 10/17/2023 Active nystatin 300838 unt/ml oral suspension (1 source) Polyene Antifungal Start: 01-04-2023 End: 01-14-2023 take 5 mL by mouth four times daily nystatin (MYCOSTATIN) 100,000 unit/mL suspension Take 5 mL (500,000 Units total) by mouth 4 (four) times a day for 10 days . 200 mL 0 01/04/2023 01/14/2023 Active omega 4-tvy-lwh-fish oil (Fish OiL) 1,000 mg (120 mg-180 mg) capsule (4 sources) take 1 capsule by mouth once daily omega 2-zok-gcu-fish oil (Fish OiL) 1,000 mg (120 mg-180 mg) capsule Take 1 capsule (1,000 mg) by mouth once daily. Active take 1 capsule by mouth once vicky ly omega 0-mem-cfs-fish oil (Fish OiL) 1,000 mg (120 mg-180 mg) capsule Take 1 capsule (1,000 mg) by mouth once daily. 0 Active omega 5-oin-sds-fish oil (Fi sh OiL) 300-1,000 mg capsule (20 sources) omega 3-dha-epa- fish oil (Fish OiL) 300-1,000 mg capsule Take by mouth. Active omega 3-dha-epa- fish oil (Fish OiL) 300-1,000 mg capsule Take by mouth. 0 Active [place]-3 Fatty Acids (Fish Oil) 1200 MG capsule delayed-release (8 sources) [place]-3 Fatty Ac ids (Fish Oil) 1200 MG capsule delayed-release Take by mouth Active Ozempic, 2 MG/DOSE, 8 MG/3ML solution pen-injector (20 sources) Start: 08-31-20 24 Ozempic, 2 MG/DOSE, 8 MG/3ML solution pen-injector 08/31/2024 Active pantoprazole 20 mg delayed release oral tablet (2 sources) Proton Pump Inhibitor Start: 04-11-20 take 1 tablet by mouth once daily pantoprazole DR (PROTONIX) 20 mg tablet Take 1 tablet by mouth once daily for 14 days. 14 tablet 04/11/2020 Active potassium 99 mg extended release oral tablet (8 sources) Potassium 99 MG tablet Take by mouth Active potassium chloride 10 meq extended release oral tablet (20 sources) Start: 08-19-20 End: 08-19-20 Potassium Chloride 10 mEq tablet extended release Active 10 MEQ PO as needed December 16, 2024 12:00am take 1 capsule by mouth once as needed potassium chloride (KLOR-CON SPRINKLE) 10 MEQ CR capsule Take 1 capsule (10 mEq total) by mouth as needed. Per Dr. Watts Active psyllium 400 mg oral capsule (3 sources) Start: 09-11-2023 psyllium husk (MetamuciL) 0.4 gram capsule Indications: Constipation, unspecified constipation type Take 1 capsule (0.4 g total) by mouth in the morning. 0 09/11/2023 Active risperiDONE 0.5 mg oral tablet (20 sources) Atypical Antipsychotic Start: 02-24-2025 take 1 tablet by mouth in the morning, then take 1 tablet by mouth at bedtime risperiDONE (RisperDAL) 0.5 mg tablet Take 1 tablet (0.5 mg total) by mouth in the morning and 1 tablet (0.5 mg total) before bedtime. 02/24/2025 Active Start: 08-08-2024 End: 03-11-2025 take 1 tablet by mouth in the morning, then take 1 tablet by mouth at bedtime risperiDONE (RisperDAL) 1 mg tablet Take 1 tablet (1 mg total) by mouth in the morning and 1 tablet (1 mg total) before bedtime. 08/08/2024 01/14/2025 Discontinued End: 03-11-2025 take 1 tablet by mouth twice daily risperiDONE (RisperDAL M-TAB) 1 mg disintegrating tablet Dissolve 1 tablet (1 mg) in the mouth 2 times a day. Active sacubitril 24 mg / valsartan 26 mg oral tablet (7 sources) Angiotensin 2 Receptor Shayne Start: 06-06-2023 End: 09-04-2023 take 1 tablet by mouth at bedtime ENTRESTO 24-26 mg tablet Indications: Chronic diastolic CHF (congestive heart failure) ([facility]) TAKE 1 TABLET BY MOUTH IN THE MORNING AND BEFORE BEDTIME 180 tablet 0 09/04/2023 Active Start: 02-19-2023 take 1 tablet by lita th twice daily Entresto 24-26 MG Oral Tablet Take 1 tablet twice daily Quantity: 180 Refills: 3 Ordered: 20-Feb-2023 DO Start : 19-Feb-2023 Active Semaglutide (3 sources) Start: 09-26-2023 inject 1 mg by subcutaneous injection every week Semaglutide (Ozempic) 1 mg/dose (4 mg/3 mL) pen injector Active 2 MG SUBCUT .weekly September 26, 2023 1:00am Start: 09-26-2023 inject 1 mg by subcu taneous injection every week Semaglutide (Ozempic) 1 mg/dose (4 mg/3 mL) pen injector Active 2 MG SUBCUT .weekly September 26, 2023 12:00am semaglutide (OZEMPIC SUBCUTANEOUS) (2 sources) inject 1 dose by subcutaneous injection every week semaglutide (OZEMPIC SUBCUTANEOUS) Inject 1 Dose subcutaneously one time a week. 50 mg weekly Active semaglutide (Ozempic) 2 mg/dose (8 mg/3 mL) pen injector (2 sources) semaglutide (Oze mpic) 2 mg/dose (8 mg/3 mL) pen injector Inject 2 mg under the skin every 7 days. Active semaglutide (OZEMPIC) 2 mg/dose (8 mg/3 mL) pen injector (20 sources) Start: 10-17-2024 semaglutide (OZEMPIC) 2 mg/dose (8 mg/3 mL) pen injector Indications: Type 2 diabetes mellitus with diabetic peripheral angiopathy without gangrene, with long-term current use of insulin (CMS-HCC) Inject 2 mg under the skin every 7 days. 9 mL 3 10/17/2024 Active Start: 12-27-2023 End: 10-17-2024 semaglutide (OZEMPIC) 2 mg/d ose (8 mg/3 mL) pen injector Indications: Type 2 diabetes mellitus with diabetic peripheral angiopathy without gangrene, with long-term current use of insulin (CMS-HCC) Inject 2 mg under the skin every 7 days. 9 mL 3 12/27/2023 10/17/2024 Discontinued (Reorder) Start: 12-27-2023 semaglutide (O ZEMPIC) 2 mg/dose [...] 7 days. 3 mL 11 08/07/2023 Active Semaglutide (OZEMPIC, 2 MG/DOSE, SC) (1 source) Semaglutide (OZEMPIC, 2 MG/DOSE, SC) Inject into the skin Active sildenafil 50 mg oral tablet (20 sources) Phosphodiesterase 5 Inhibitor Start: 023 take 1 tablet by mouth every twenty-four hours as needed sildenafil (Viagra) 50 MG tablet Take 50 mg by mouth Daily as needed 10/11/2022 Active spironolactone 25 mg oral tablet (20 sources) Aldosterone Antagonist Start: End: take 0.5 tablet by mouth once daily spironolactone (Aldactone) 25 mg tablet Indications: Primary hypertension TAKE 1/2 TABLET BY MOUTH DAILY FOR 30 DAYS 45 tablet 3 11/03/2024 Active Start: 10-08-2023 End: 10-16-2024 spironolactone (ALDACTONE) 2 5 mg tablet 10/08/2023 Active Start: 10-08-2023 Spironolactone 25 mg Tablet Active 12.5 MG PO Daily October 08, 2023 1:00am Start: 10-08-2023 take 12.5 mg by mout h once daily Spironolactone Active 12.5 MG PO Daily October 08, 2023 12:00am traZODone hydrochloride 100 mg oral tablet (20 sources) Serotonin Reuptake Inhibitor Start: 01-31-2024 End: 01-14-2025 take 0.5-1 tablets by mouth at bedtime as needed for sleep traZODone (Desyrel) 100 MG tablet TAKE 1/2 TO 1 TABLET BY MOUTH AT BEDTIME NEEDED FOR SLEEP 10/31/2024 Active Start: 11-21-2022 traZODone (Sean yrel) 50 MG tablet 11/21/2022 Active Start: 11-20-2021 take 1 tablet by lita th once daily in the evening Trazodone Active 1 TAB PO Every Evening November 20, 2021 3:25pm Start: 11-13-2018 End: 11-29-2018 take 1 tablet by mouth at bedtime as needed Trazodone 50 mg tablet Discontinued 50 MG PO Bedtime as needed for Insomnia November 22, 2018 12:00am November 29, 2018 9:07am Start: 10-14-2018 End: 10-20-2018 take 1 tablet by mouth at bedtime as needed for sleep Trazodone 50 mg tablet Discontinued 50 MG PO Bedtime as needed for Sleep October 14, 2018 1:00am October 20, 2018 12:52pm divalproex sodium 125 mg delayed release oral capsule (17 sources) Mood Stabilizer, Anti-epileptic Agent Start: 03-17-2025 take 2 capsules by mouth in the morning, then take 2 capsules by mouth at bedtime divalproex sprinkle (DEPAKOTE SPRINKLE) 125 mg capsule Take 2 capsules (250 mg total) by mouth in the morning and 2 capsules (250 mg total) before bedtime. 03/17/2025 Active Start: 03-16-2025 End: 03-17-2025 take 1 capsule by mouth in the morning, then take 1 capsule by mouth at bedtime divalproex sprinkle (DEPAKOTE SPRINKLE) 125 mg capsule Take 1 capsule (125 mg total) by mouth in the morning and 1 capsule (125 mg total) before bedtime. 03/16/2025 03/17/2025 Discontinued Start: 08-08-2024 End: 09-29-2024 take 1 capsule by mouth in the morning, then take 1 capsule by mouth at bedtime divalproex sprinkle (DEPAKOTE SPRINKLE) 125 mg capsule Take 1 capsule (125 mg total) by mouth in the morning and 1 capsule (125 mg total) before bedtime. 08/08/2024 09/29/2024 Discontinued (Patient Stopped On Own) take 2 tablets by mo uth in the morning divalproex (Depakote) 125 MG EC tablet Take 250 mg by mouth in the morning and 250 mg before bedtime. Do not crush, chew, or split. Active take 4 capsules by m outh at bedtime Divalproex Sodium (DEPAKOTE SPRINKLES PO) Take 125 mg by mouth in the morning and at bedtime 4 capsules Active vilazodone hydrochloride 40 mg oral tablet (4 sources) Start: 03-31-2019 take 1 tablet by mouth once daily in the morning [id number] 40 mg TAKE 1 TABLET BY MOUTH EVERY DAY IN THE MORNING 03/31/2019 Active Viibryd Active Completed/Discontinued Medications Medication Drug Class(es) Dates Sig (Normalized) Sig (Original) [id number] 200 actuat albuterol 0.09 mg/actuat metered dose inhaler (4 sources) beta2-Adrenergic Agonist Start: 08-12-2023 End: 09-19-2023 take 2 puff(s) by mouth every four hours as needed for wheezing albuterol (PROVENTIL HFA;VENTOLIN HFA) 90 mcg/actuation inhaler INHALE 2 PUFFS BY MOUTH EVERY 4 HOURS NEEDED FOR WHEEZING OR SHORTNESS OF BREATH 0 08/12/2023 09/19/2023 Discontinued ALPRAZolam 1 mg oral tablet (4 sources) Benzodiazepine Start: 10-14-2018 End: 10-20-2018 take 1 tablet by mouth twice daily as needed for anxiety Alprazolam 1 mg tablet Discontinued 1 MG PO Twice daily as needed for Anxiety October 14, 2018 1:00am October 20, 2018 12:52pm aluminum hydroxide 40 mg/ml / magnesium hydroxide 40 mg/ml / simethicone 4 mg/ml oral suspension (3 sources) Start: 10-06-2023 End: 10-09-2023 take 1 mL by mouth every four hours as needed Alum-Mag Hydroxide-Simeth (Mag-Al Plus) 200-200-20 mg/5 mL Suspension Discontinued 30 ML PO Q4H as needed for Indigestion 0 October 06, 2023 1:00am October 09, 2023 5:36pm azithromycin 250 mg oral tablet (2 sources) Macrolide Antimicrobial Start: 08-12-2023 End: 09-11-2023 azithromycin (ZITHROMAX) 250 mg tablet PLEASE SEE ATTACHED FOR DETAILED DIRECTIONS 0 08/12/2023 09/11/2023 Discontinued (Therapy completed) bempedoic acid 180 mg oral tablet (8 sources) Start: 08-23-2023 End: 10-15-2023 take 1 tablet by mouth once daily Bempedoic Acid (Nexletol) 180 mg tablet Discontinued 180 MG PO Daily September 26, 2023 1:00am October 09, 2023 2:51pm benzonatate 200 mg oral capsule (2 sources) Non-narcotic Antitussive Start: 08-12-2023 End: 09-11-2023 take 1 capsule by mouth three times daily as needed for cough benzonatate (TESSALON PERLES) 200 mg capsule TAKE 1 CAPSULE BY MOUTH THREE TIMES A DAY NEEDED FOR COUGH 0 08/12/2023 09/11/2023 Discontinued (Therapy completed) 5 ml bupivacaine hydrochloride 5 mg/ml injection (4 sources) Amide Local Anesthetic Start: 10-31-2024 End: 10-31-2024 bupivacaine PF (Marcaine) 0.5 % injection 0.5 mL Start: 10-31-2024 End: 10-31-2024 0.5 mL, Once PRN Procedure, Starting on Sun10/31/24 at 1056, For 1 dose 24 hr buPROPion hydrochloride 150 mg extended release oral tablet (4 sources) Aminoketone Start: 10-14-2018 End: 10-20-2018 take 1 tablet by mouth once daily Bupropion Hcl 150 mg tablet extended release 24 hr Discontinued 150 MG PO Daily October 14, 2018 1:00am October 20, 2018 12:52pm cephalexin 500 mg oral capsule (2 sources) Cephalosporin Antibacterial Start: 08-12-2023 End: 09-11-2023 take 2 capsules by mouth twice daily CEPHalexin (KEFLEX) 500 mg capsule TAKE 2 CAPSULES BY MOUTH TWICE A DAY 0 08/12/2023 09/11/2023 Discontinued (Therapy completed) chlorthalidone 25 mg oral tablet (18 sources) Thiazide-like Diuretic Start: 06-14-2022 take 1 tablet by mouth once daily as needed Chlorthalidone 25 MG Oral Tablet TAKE 1 TABLET Daily prn Quantity: 90 Refills: 3 Ordered: 15-Sep-2022 DO Start : 14-Jun-2022 Active Start: 11-20-2021 take 1 tablet by lita th once daily Chlorthalidone Active 1 TAB PO DAILY November 20, 2021 3:25pm Start: 10-20-2018 End: 10-24-2018 take 2 tablets by mouth once daily Chlorthalidone 25 mg Tablet Discontinued 50 MG PO Daily October 20, 2018 1:00am October 24, 2018 11:28am Start: 10-20-2018 End: 10-24-2018 take 50 mg by mouth once daily Chlorthalidone Disconti nued 50 MG PO Daily October 20, 2018 12:00am October 24, 2018 10:28am Start: 08-15-2018 End: 10-20-2018 take 1 tablet by mouth once daily Chlorthalidone 25 mg tablet Discontinued 25 MG PO Daily October 15, 2018 1:00am October 20, 2018 12:51pm clomiPRAMINE hydrochloride 50 mg oral capsule (12 sources) Tricyclic Antidepressant Start: 11-29-2018 End: 09-26-2023 take 1 capsule by mouth once daily at bedtime Clomipramine 50 mg capsule Discontinued 100 MG PO Daily at bedtime 60 November 29, 2018 12:00am September 26, 2023 7:38pm Start: 11-29-2018 End: 09-26-2023 take 100 mg by mouth once daily at bedtime Clomipramine Discontinued 100 MG PO Daily at bedtime 60 November 28, 2018 11:00pm September 26, 2023 6:38pm Start: 11-06-2018 End: 11-22-2018 take 1 capsule by mouth once daily at bedtime Clomipramine 50 mg Capsule Discontinued 150 MG PO Daily at bedtime 42 November 06, 2018 1:00am November 22, 2018 7:30pm Start: 11-06-2018 End: 11-22-2018 take 150 mg by mouth once daily at bedtime Clomipramine Discontinued 150 MG PO Daily at bedtime 42 November 06, 2018 12:00am November 22, 2018 6:30pm Start: 10-14-2018 End: 10-20-2018 take 1 capsule by mouth twice daily Clomipramine 25 mg capsule Discontinued 25 MG PO Twice daily October 14, 2018 1:00am October 20, 2018 12:52pm diphenhydrAMINE hydrochloride 25 mg oral capsule (4 sources) Histamine-1 Receptor Antagonist Start: 10-24-2018 End: 11-22-2018 take 2 capsules by mouth at bedtime as needed for sleep Diphenhydramine Hcl 25 mg Capsule Discontinued 50 MG PO Bedtime as needed for sleep 0 October 24, 2018 1:00am November 22, 2018 7:30pm Start: 10-24-2018 End: 11-22-2018 take 50 mg by mouth at bedtime Diphenhydramine Hcl Dis continued 50 MG PO Bedtime 0 October 24, 2018 12:00am November 22, 2018 6:30pm docusate sodium 50 mg / sennosides, skilled nursing 8.6 mg oral tablet (5 sources) Start: 09-26-2023 End: 10-15-2023 take 2 [...] PO Twice daily 0 October 24, 2018 1:00am November 22, 2018 7:30pm Fish Oil 1000 MG Oral Capsule Delayed Release (1 source) Start: 04-26-2023 take 2 capsules by mouth once daily Fish Oil 1000 MG Oral Capsule Delayed Release TAKE 2 CAPSULE Daily Quantity: 180 Refills: 3 Ordered: 26-Apr-2023 Bertha Tovar MD Start : 26-Apr-2023 Active fluvoxaMINE maleate 50 mg oral tablet (8 sources) Serotonin Reuptake Inhibitor Start: 10-20-2018 End: 10-24-2018 take 100 mg by mouth twice daily Fluvoxamine Discontinued 100 MG PO Twice daily October 20, 2018 12:00am October 24, 2018 10:29am Start: 10-14-2018 End: 10-24-2018 take 1 tablet by mouth twice daily Fluvoxamine 50 mg Tablet Discontinued 100 MG PO Twice daily October 20, 2018 1:00am October 24, 2018 11:29am gabapentin 300 mg oral capsule (2 sources) Anti-epileptic Agent Start: 11-01-2023 End: 12-01-2023 take 1 capsule by mouth three times daily gabapentin (NEURONTIN) 300 mg capsule Indications: Lumbar pain Take 1 capsule (300 mg total) by mouth 3 (three) times a day for 30 days. 90 capsule 3 11/01/2023 11/15/2023 Discontinued (Therapy completed) heparin sodium, porcine 5000 unt/ml injectable solution (15 sources) Unfractionated Heparin, Anti-coagulant Start: 10-06-2023 End: 10-06-2023 inject 5000 [IU] by subcutaneous injection every eight hours Heparin (Porcine) 5,000 unit/mL Solution Discontinued 5000 UNIT SUBCUT Every 8 hours 0 October 06, 2023 1:00am October 06, 2023 2:56pm Start: 10-06-2023 End: 10-06-2023 take 5000 [IU] intravenously once Heparin (Porcine) 5, 000 unit/mL Solution Discontinued 4000 UNIT IV-PUSH Once 0 October 06, 2023 1:00am October 06, 2023 2:55pm Start: 10-06-2023 End: 10-06-2023 Heparin(Porcine) In 0.45% Na cl 25,000 unit/250 mL Parenteral Solution Discontinued [id number] UNIT IV .[id number] 0 October 06, 2023 1:00am October 06, 2023 2:55pm Start: 10-06-2023 End: 10-06-2023 take 4000 [IU] intravenously once Heparin (Porcine) Di scontinued 4000 UNIT IV-PUSH Once 0 October 06, 2023 12:00am October 06, 2023 1:55pm Insulin Aspart U-100 (Novolo g Flexpen U-100 Insulin) 100 unit/mL (3 mL) Insulin Pen (3 sources) Start: 10-06-2023 End: 12-16-2024 Insulin Aspart U-100 (Novolo g Flexpen U-100 Insulin) 100 unit/mL (3 mL) Insulin Pen Discontinued 0 UNIT SUBCUT 3X/Day with meals and bedtime 0 October 06, 2023 1:00am December 16, 2024 10:57am Please contact the information source for Protocol details. Start: 10-06-2023 Insulin Aspart U-100 (Novolog Flexpen U-100 Insulin) 100 unit/mL (3 mL) Insulin Pen Active 0 UNIT SUBCUT 3X/Day with meals and bedtime 0 October 06, 2023 12:00am 3 ml insulin glargine 300 unt/ml pen injector (20 sources) Insulin Analog Start: 09-29-2024 End: 03-17-2025 inject 50 [IU] by subcutaneous injection in the morning, then inject 75 [IU] by subcutaneous injection once daily TOUJEO MAX U-300 SOLOSTAR 300 unit/mL (3 mL) insulin pen Indications: Type 2 diabetes mellitus with diabetic peripheral angiopathy without gangrene, with long-term current use of insulin ([facility]) Inject 50 Units under the skin in the morning. Up to 75 units daily. 27 mL 3 10/17/2024 03/17/2025 Discontinued Start: 10-15-2023 inject 42 [IU] by hanna bcutaneous injection in the morning, then inject 75 [IU] by subcutaneous injection once daily TOUJEO MAX U-300 SOLOSTAR 300 unit/mL (3 mL) insulin pen Indications: Type 2 diabetes mellitus with diabetic peripheral angiopathy without gangrene, with long-term current use of insulin ([facility]) Inject 42 Units under the skin in the morning. Up to 75 units daily. 03/17/2025 Active Start: 10-15-2023 End: 09-29-2024 Toujeo Max U-300 SoloStar 30 0 unit/mL (3 mL) injection INJECT 66 UNITS UNDER THE SKIN IN THE MORNING. 01/01/2024 Active Start: 09-26-2023 End: 12-16-2024 inject 33 [IU] by subcutaneous injection once daily in the evening Insulin Glargine 100 unit/mL (3 mL) insulin pen Discontinued 33 UNIT SUBCUT Every evening September 26, 2023 1:00am December 16, 2024 10:56am Start: 08-07-2023 TOUJEO MAX U-3 00 SOLOSTAR 300 unit/mL (3 mL) insulin pen Indications: Type 2 diabetes mellitus with diabetic peripheral angiopathy without gangrene, with long-term current use of insulin ([facility] Inject up to 100 units daily 30 mL 3 08/07/2023 Active Start: 10-12-2022 Toujeo Max Nirmala oStar 300 UNIT/ML Subcutaneous Solution Pen-injector inject as directed Quantity: 0 Refills: 0 Ordered: 17-Oct-2022 DO Start : 12-Oct-2022 Active Insulin Glargine (TOUJEO MAX SOLOSTAR SC) Inject 50 Units into the skin at bedtime 50 units nightly. Active ammonium lactate 120 mg/ml topical cream (10 sources) Start: 06-02-2024 End: 09-01-2025 ammonium lactate (Amlactin) 12 % cream Indications: Corns and callosities Apply topically Daily 140 g 3 09/01/2024 09/26/2024 Discontinued (Therapy completed) lurasidone hydrochloride 40 mg oral tablet (14 sources) Atypical Antipsychotic Start: 11-22-2018 End: 11-29-2018 Lurasidone (Latuda) 40 mg tablet Discontinued 20 MG PO Daily at 1700 November 22, 2018 12:00am November 29, 2018 9:07am Daily with food at 1700 for one week, then discontinue. Start: 11-13-2018 take 1 tablet by lita th once daily lurasidone (LATUDA) 80 MG TABS tablet Take 1 tablet by mouth Daily with supper 30 tablet 11/13/2018 Active Start: 10-20-2017 End: 11-06-2018 take 1 tablet by mouth once daily Lurasidone (Latuda) 40 mg Tablet Discontinued 100 MG PO Daily with supper October 20, 2018 1:00am November 06, 2018 3:31pm Start: 10-20-2017 End: 10-20-2018 take 80 mg by mouth at bedtime Lurasidone Discontinued 80 MG PO Bedtime October 20, 2017 12:00am October 20, 2018 11:51am 1 ml methylPREDNISolone acetate 40 mg/ml injection (4 sources) Corticosteroid Start: 10-31-2024 End: 10-31-2024 methylPREDNISolone acetate (DEPO-Medrol) injection 20 mg Start: 10-31-2024 End: 10-31-2024 20 mg, Intra-articular, Once PRN Procedure, Starting on Sun10/31/24 at 1056, For 1 dose 2 ml naloxone hydrochloride 1 mg/ml prefilled syringe (5 sources) Opioid Antagonist Start: 10-06-2023 End: 10-06-2023 Naloxone 1 mg/mL Syringe Discontinued 2 MG IV-PUSH Q2M as needed for Opioid Reversal 0 October 06, 2023 1:00am October 06, 2023 3:11pm Start: 10-06-2023 End: 10-06-2023 Naloxone Discontinued 2 MG I V-PUSH Q2M 0 October 06, 2023 12:00am October 06, 2023 2:11pm Start: 09-26-2023 End: 10-06-2023 Naloxone Discontinued 1 SPRA Y INTRANASAL Q3M September 26, 2023 12:00am October 06, 2023 11:25am Naloxone 4 mg/actuation spray,non-aerosol (1 source) Start: 09-26-2023 End: 10-06-2023 Naloxone 4 mg/actuation spray,non-aerosol Discontinued 1 SPRAY INTRANASAL Q3M as needed for opioid overdose September 26, 2023 1:00am October 06, 2023 12:25pm nebivolol 20 mg oral tablet (8 sources) Start: 08-15-2018 End: 10-14-2018 take 1 tablet by mouth once daily Nebivolol 20 mg tablet Discontinued 20 MG PO Daily August 15, 2018 1:00am October 14, 2018 1:11pm Start: 09-11-2017 End: 10-20-2017 take 2 tablets by mouth once daily Nebivolol (Bystolic) 10 mg Tablet Discontinued 20 MG PO Daily September 11, 2017 1:00am October 20, 2017 6:04pm NIFEdipine 30 mg osmotic 24 hr extended release oral tablet (8 sources) Dihydropyridine Calcium Channel Shayne Start: 09-17-2017 End: 08-15-2018 take 1 tablet by mouth twice daily Nifedipine 30 mg Tablet Extended Release 24hr Discontinued 30 MG PO Twice daily 60 September 17, 2017 1:00am August 15, 2018 3:28pm Start: 09-11-2017 End: 09-17-2017 take 1 tablet by mouth once daily Nifedipine 30 mg Tablet Extended Release Discontinued 30 MG PO Daily September 11, 2017 1:00am September 17, 2017 11:36am OLANZapine 5 mg oral tablet (8 sources) Atypical Antipsychotic Start: 11-29-2018 End: 09-26-2023 take 1 tablet by mouth every six hours as needed Olanzapine 5 mg Tablet Discontinued 5 MG PO Q6H as needed for Agitation November 29, 2018 12:00am September 26, 2023 7:38pm Start: 11-06-2018 End: 11-22-2018 take 1 tablet by mouth twice daily Olanzapine 5 mg Tablet Discontinued 5 MG PO Twice daily November 06, 2018 1:00am November 22, 2018 7:30pm olmesartan medoxomil 40 mg oral tablet (8 sources) Angiotensin 2 Receptor Shayne Start: 10-20-2018 End: 11-22-2018 take 1 tablet by mouth once daily Olmesartan 40 mg tablet Discontinued 40 MG PO Daily October 20, 2018 1:00am November 22, 2018 7:30pm Start: 08-15-2018 End: 10-14-2018 take 1 tablet by mouth once daily Olmesartan (Benicar) 40 mg Tablet Discontinued 40 MG PO Daily August 15, 2018 1:00am October 14, 2018 1:12pm omeprazole 20 mg delayed release oral capsule (4 sources) Proton Pump Inhibitor Start: 10-24-2018 End: 11-22-2018 take 2 capsules by mouth once daily Omeprazole 20 mg Capsule,Delayed Release(Dr/Ec) Discontinued 40 MG PO Daily October 24, 2018 1:00am November 22, 2018 7:30pm Start: 10-24-2018 End: 11-22-2018 take 40 mg by mouth once daily Omeprazole Discontinued 40 MG PO Daily October 24, 2018 12:00am November 22, 2018 6:30pm ondansetron 4 mg disintegrating oral tablet (7 sources) Serotonin-3 Receptor Antagonist Start: 10-06-2023 End: 10-09-2023 take 1 tablet by mouth every eight hours as needed for nausea and vomiting Ondansetron 4 mg Tablet,Disintegrating Discontinued 4 MG PO Every 8 hours as needed for Nausea And Vomiting 0 October 06, 2023 1:00am October 09, 2023 2:51pm Start: 10-24-2018 End: 11-06-2018 Ondansetron Hcl (Zofran) 4 m g tablet Discontinued 4 MG PO 2-3 TIMES PER DAY as needed for nausea and vomiting October 24, 2018 1:00am November 06, 2018 3:52pm oxyCODONE hydrochloride 5 mg oral tablet (7 sources) Opioid Agonist Start: 09-26-2023 End: 10-15-2023 oxyCODONE (ROXICODONE) 5 mg immediate release tablet Indications: Cauda equina compression (CMS-HCC) Take 1-2 tablets (5-10 mg total) by mouth every 6 (six) hours as needed for pain (10mg for severe pain, 5mg for moderate pain). Max Daily Amount: 40 mg 24 tablet 0 09/26/2023 10/15/2023 Discontinued (Therapy completed) Start: 09-26-2023 End: 10-06-2023 take 1 tablet by mouth every six hours as needed for pain Oxycodone 5 mg tablet Discontinued 5 MG PO Q6H as needed for pain (scale score 4-6) September 26, 2023 1:00am October 06, 2023 3:10pm Start: 09-26-2023 End: 10-06-2023 take 1 tablet by mouth every six hours as needed for pain Oxycodone 10 mg tablet Discontinued 10 MG PO Q6H as needed for pain (scale score 7-10) September 26, 2023 1:00am October 06, 2023 12:25pm Ozempic (1 MG/DOSE) 4 MG/3ML Subcutaneous Solution Pen-injector (2 sources) Start: 06-27-2022 inject 1 mg by subcutaneous injection every week Ozempic (1 MG/DOSE) 4 MG/3ML Subcutaneous Solution Pen-injector inject as directed once weekly Quantity: 0 Refills: 0 Ordered: 19-Sep-2022 DO Start : 27-Jun-2022 Active polyethylene glycol 3350 48147 mg powder for oral solution (20 sources) Osmotic Laxative Start: 09-26-2023 End: 06-10-2024 Polyethylene Glycol 3350 (Miralax) 17 gram/dose powder Discontinued 17 GM PO Daily September 26, 2023 1:00am October 09, 2023 5:36pm predniSONE 20 mg oral tablet (4 sources) Start: 09-12-2024 End: 09-26-2024 take 2 tablets by mouth once daily, then take 1 tablet by mouth once daily at mealtime predniSONE (Deltasone) 20 MG tablet Indications: Traumatic hematoma of right knee, initial encounter Take 2 tablets (40 mg) by mouth Daily for 5 days, THEN 1 tablet (20 mg) Daily for 5 days. Take with food. 15 tablet 09/12/2024 09/26/2024 Discontinued (Therapy completed) propranolol hydrochloride 20 mg oral tablet (10 sources) beta-Adrenergic Shayne Start: 11-13-2018 End: 09-26-2023 take 1 tablet by mouth twice daily Propranolol 20 mg tablet Discontinued 20 MG PO Twice daily 60 November 29, 2018 9:10am September 26, 2023 7:39pm QUEtiapine 100 mg oral tablet (5 sources) Atypical Antipsychotic End: 03-17-2025 take 2 tablets by mouth once daily QUEtiapine (SEROquel) 100 mg tablet Take 2 tablets (200 mg total) by mouth nightly. Increase 50 mg until 100mg 7 days increase another 100mg until 200mg and stop. 03/17/2025 Discontinued (Therapy completed) rosuvastatin calcium 5 mg oral tablet (2 sources) HMG-CoA Reductase Inhibitor Start: 03-15-2023 take 1 tablet by mouth once daily Rosuvastatin Calcium 5 MG Oral Tablet TAKE 1 TABLET DAILY. Quantity: 90 Refills: 3 Ordered: 15-Mar-2023 Bertha Tovar MD Start : 15-Mar-2023 Active restart 0.25 mg, 0.5 mg dose 1.5 ml semaglutide 1.34 mg/ml pen injector (20 sources) End: 03-11-2025 semaglutide (Ozempic, 0.25 or 0.5 MG/DOSE,) 2 MG/1.5ML solution pen-injector 03/11/2025 Discontinued semaglutide (OZEMPIC) 0.25 mg or 0.5 mg (2 mg/3 mL) pen injector (20 sources) Start: 12-27-2023 End: 06-10-2024 semaglutide (OZEMPIC) 0.25 mg or 0.5 mg (2 mg/3 mL) pen injector Indications: Type 2 diabetes mellitus with diabetic peripheral angiopathy without gangrene, with long-term current use of insulin ([facility]) Inject 0.5 mg under the skin every [...] gangrene, with long-term current use of insulin ([facility]) Inject 0.5 mg under the skin every 7 days. 0.5 mg subQ weekly for 4 weeks then increase to 1 mg weekly for 4 weeks, then increase to 2 mg weekly. 3 mL 12/27/2023 Active semaglutide (OZEMPIC) 1 mg/dose (4 mg/3 mL) pen injector (20 sources) Start: 12-27-2023 End: 03-26-2024 inject 1 mg by subcutaneous injection every week, then inject 1 mg by subcutaneous injection every week, then inject 2 mg by subcutaneous injection every week semaglutide (OZEMPIC) 1 mg/dose (4 mg/3 mL) pen injector Indications: Type 2 diabetes mellitus with diabetic peripheral angiopathy without gangrene, with long-term current use of insulin ([facility]) Inject 1 mg under the skin once a week for 90 days. 1 mg weekly for 4 weeks then increase to 2 mg weekly 3 mL 12/27/2023 03/26/2024 Start: 12-27-2023 End: 03-26-2024 inject 1 mg by subcutaneous injection every week, then inject 1 mg by subcutaneous injection every week, then inject 2 mg by subcutaneous injection every week semaglutide (OZEMPIC) 1 mg/dose (4 mg/3 mL) pen injector Indications: Type 2 diabetes mellitus with diabetic peripheral angiopathy without gangrene, with long-term current use of insulin ([facility]) Inject 1 mg under the skin once a week for 90 days. 1 mg weekly for 4 weeks then increase to 2 mg weekly 3 mL 12/27/2023 03/26/2024 Active Sennosides (Senna Laxative) 8.6 mg Tablet (3 sources) Start: 10-06-2023 End: 10-09-2023 take 1 tablet by mouth once daily as needed Sennosides (Senna Laxative) 8.6 mg Tablet Discontinued 8.6 MG PO DAILY@12 as needed for If no BM in 2 days 0 October 06, 2023 1:00am October 09, 2023 5:36pm Start: 10-06-2023 End: 10-09-2023 take 1 tablet by mouth once daily Sennosides (Senna Laxative) 8.6 mg Tablet Discontinued 8.6 MG PO DAILY@12 0 October 06, 2023 12:00am October 09, 2023 4:36pm Start: 10-06-2023 take 1 tablet by lita th once daily Sennosides (Senna Laxative) 8.6 mg Tablet Active 8.6 MG PO DAILY@12 0 October 06, 2023 12:00am sertraline 50 mg oral tablet (4 sources) Serotonin Reuptake Inhibitor Start: 09-17-2017 End: 08-15-2018 take 1 tablet by mouth once daily in the morning Sertraline 50 mg Tablet Discontinued 50 MG PO Every morning September 17, 2017 1:00am August 15, 2018 3:29pm Sodium Chloride 0.9 % (Flush) (3 sources) Start: 10-06-2023 End: 10-06-2023 Sodium Chloride 0.9 % (Flush) (Bd Posiflush Normal Saline 0.9) Syringe Discontinued 10 ML IV-PUSH PRN as needed for Flush 0 October 06, 2023 1:00am October 06, 2023 2:51pm Start: 10-06-2023 End: 10-06-2023 Sodium Chloride 0.9 % (Flush ) (Bd Posiflush Normal Saline 0.9) Syringe Discontinued 10 ML IV-PUSH PRN 0 October 06, 2023 12:00am October 06, 2023 1:51pm Start: 10-06-2023 Sodium Chlorid e 0.9 % (Flush) (Bd Posiflush Normal Saline 0.9) Syringe Active 10 ML IV-PUSH PRN 0 October 06, 2023 12:00am tamsulosin hydrochloride 0.4 mg oral capsule (20 sources) alpha-Adrenergic Shayne Start: 11-26-2023 End: 03-14-2024 take 2 capsules by mouth at bedtime tamsulosin (FLOMAX) 0.4 mg capsule Indications: History of urinary retention Take 2 pills by mouth prior to bedtime 180 capsule 2 11/26/2023 03/14/2024 Discontinued (Therapy completed) Start: 10-15-2023 End: 09-26-2024 take 1 capsule by mouth every twenty-four hours at bedtime tamsulosin (Flomax) 0.4 MG 24 hr capsule Take 0.4 mg by mouth at bedtime 10/15/2023 09/26/2024 Discontinued (Therapy completed) Start: 09-26-2023 End: 07-16-2024 take 1 capsule by mouth once daily tamsulosin (FLOMAX) 0.4 mg capsule Indications: History of urinary retention Take 1 capsule (0.4 mg total) by mouth nightly. 90 capsule 1 10/15/2023 11/26/2023 Discontinued (Reorder) ticagrelor 90 mg oral tablet (20 sources) Start: 10-08-2023 End: 12-16-2024 take 1 tablet by mouth twice daily Ticagrelor (Brilinta) 90 mg Tablet Discontinued 90 MG PO Twice daily 180 90 October 08, 2023 1:00am December 16, 2024 10:58am Urea (Ure-Na) 15 gram Powder In Packet (4 sources) Start: 10-24-2018 End: 11-03-2018 Urea (Ure-Na) 15 gram Powder In Packet Discontinued 30 GM PO Daily 60 October 24, 2018 12:00am November 03, 2018 1:55pm Start: 10-24-2018 End: 11-03-2018 Urea (Ure-Na) 15 gram Powder In Packet Discontinued 30 GM PO Daily 60 October 24, 2018 1:00am November 03, 2018 2:55pm vitamin b12 1 mg oral tablet (20 sources) Vitamin B12 Start: 03-28-2024 End: 09-29-2024 take 1 tablet by mouth in the morning cyanocobalamin 1000 MCG tablet Take 1 tablet (1,000 mcg total) by mouth in the morning. 90 tablet 3 03/28/2024 09/29/2024 Discontinued (Therapy completed) Start: 03-14-2024 End: 03-24-2024 take 3 tablets by mouth in the morning cyanocobalamin (VITAMIN B-12) 100 MCG tablet Take 10 tablets (1,000 mcg total) by mouth in the morning. 90 tablet 3 03/14/2024 03/24/2024 Discontinued (Reorder) Start: 10-06-2023 End: 10-06-2023 take 1 tablet by mouth once daily in the morning Cyanocobalamin (Vitamin B-12) 1,000 mcg Tablet Discontinued 1000 MCG PO Every morning 0 October 06, 2023 1:00am October 06, 2023 3:11pm Start: 08-04-2023 End: 07-16-2024 take 1 tablet by mouth once daily Cyanocobalamin (Vitamin B-12) 100 mcg tablet Discontinued 100 MCG PO Daily September 26, 2023 1:00am October 06, 2023 12:25pm Start: 01-15-2023 take 1 tablet by lita th twice daily Vitamin B-12 100 MCG Oral Tablet Take 1 tablet twice daily Quantity: 0 Refills: 0 Ordered: 15-Jan-2023 DO Start : 15-Jan-2023 Active vortioxetine 20 mg oral tablet (20 sources) Start: 11-14-2018 End: 09-26-2023 take 1 tablet by mouth once daily Vortioxetine 20 mg tablet Discontinued 20 MG PO Daily November 29, 2018 9:10am September 26, 2023 7:39pm Start: 10-24-2018 End: 11-22-2018 take 1 tablet by mouth once daily in the morning Vortioxetine (Trintellix) 10 mg Tablet Discontinued 10 MG PO Every morning October 24, 2018 1:00am November 22, 2018 7:30pm Start: 08-15-2018 End: 10-24-2018 take 1 tablet by mouth once daily Vortioxetine (Trintellix) 20 mg Tablet Discontinued 20 MG PO Daily October 20, 2018 1:00am October 24, 2018 11:29am zolpidem tartrate 12.5 mg extended release oral tablet (4 sources) gamma-Aminobutyric Acid-ergic Agonist Start: 10-14-2018 End: 10-20-2018 take 1 tablet by mouth at bedtime Zolpidem 12.5 mg tablet,ext release multiphase Discontinued 12.5 MG PO Bedtime October 14, 2018 1:00am October 20, 2018 12:52pm Problems Active Problems Problem Classification Problem Date Documented Da te Episodic/Chronic Abdominal pain (13 sources) Abdominal pain; Translations: [Unspecified abdominal pain] Onset: 4 11-23-2018 Episodic Acquired foot deformities (2 sources) Hammer toe; Translations: [Other hammer toe(s) (acquired), left foot] 02-23-2025 Chronic Acute myocardial infarction (20 sources) Acute myocardial infarction; Translations: [Acute myocardial infarction, unspecified] Onset: 4 10-06-2023 Chronic Administrative/social admission (5 sources) Other reduced mobility; Translations: [Impaired mobility and activities of daily living] 09-27-2023 Episodic Anxiety disorders (20 sources) Generalized anxiety disorder; Translations: [Generalized anxiety disorder] Onset: 6 10-20-2018 Chronic Asthma (1 source) Unspecified asthma, uncomplicated; Translations: [UNSPECIFIED ASTHMA UNCOMPLICATED] Onset: 2 Chronic Attention-deficit, conduct, and disruptive behavior disorders (2 sources) Other symptoms and signs involving appearance and behavior; Translations: [Other symptoms and signs involving appearance and behavior] Onset: 4 Episodic Cataract (20 sources) Nuclear senile cataract; Translations: [Age-related nuclear cataract, unspecified eye] Onset: 6 04-26-2020 Chronic Chronic ulcer of skin (7 sources) Non-pressure chronic ulcer of other part of right foot with fat layer exposed; Translations: [Ulcer of other part of foot] 05-01-2024 Chronic Conditions associated with dizziness or vertigo (1 source) Dizziness and giddiness; Translations: [Dizziness and giddiness] Onset: 5 Episodic Congestive heart failure; nonhypertensive (20 sources) Chronic diastolic heart failure; Translations: [Chronic diastolic (congestive) heart failure] Onset: 3 09-30-2024 Chronic Coronary atherosclerosis and other heart disease (20 sources) Other forms of angina pectoris; Translations: [Atherosclerotic heart disease of [place] coronary artery without angina pectoris] Onset: 9 09-13-2017 Chronic Delirium, dementia, and amnestic and other cognitive disorders (3 sources) Dementia with behavioral disturbance; Translations: [Dementia with behavioral disturbance] Onset: 4 03-09-2025 Chronic Diabetes mellitus with complications (20 sources) Autonomic neuropathy due to type 2 diabetes mellitus; Translations: [Type 2 diabetes mellitus with diabetic autonomic (poly)neuropathy] Onset: 0 02-05-2023 Chronic Diabetes mellitus without complication (20 sources) Type 2 diabetes mellitus without complications; Translations: [Diabetes mellitus] Onset: 6 Resolved: 1 Chronic Diseases of white blood cells (4 sources) Leukocytosis; Translations: [Elevated white blood cell count, unspecified] 11-23-2018 Chronic Disorders of lipid metabolism (20 sources) Hyperlipidemia, unspecified; Translations: [Hyperlipidemia] Onset: 6 Resolved: 1 09-13-2017 Chronic E Codes: Fall (1 source) Unspecified fall, initial encounter; Translations: [Unspecified fall, initial encounter] Onset: 5 Episodic E Codes: Fall (2 sources) Fall Onset: 5 Esophageal disorders (20 sources) Gastroesophageal reflux disease; Translations: [Esophageal reflux] Onset: 3 08-30-2023 Chronic Essential hypertension (20 sources) Essential (primary) hypertension; Translations: [Hypertensive disorder] Onset: 1 08-15-2018 Chronic Fluid and electrolyte disorders (10 sources) Hyponatremia; Translations: [Hypo-osmolality and hyponatremia] Onset: 9 Resolved: 1 10-20-2018 Episodic Headache; including migraine (4 sources) Headache; Translations: [Headache] 10-20-2018 Episodic Hypertension with complications and secondary hypertension (7 sources) Malignant hypertension; Translations: [Hypertensive urgency] Onset: 4 10-20-2018 Chronic Miscellaneous mental health disorders (8 sources) Psychophysiologic insomnia; Translations: [Psychophysiologic insomnia] Chronic Mood disorders (20 sources) Major depressive disorder, single episode, severe without psychotic features; Translations: [Depressive disorder] Onset: 1 08-15-2018 Chronic Mycoses (6 sources) Onychomycosis due to dermatophyte ; Translations: [Tinea unguium] 06-02-2024 Episodic 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; Translations: [ARNOLD-CHIARI W/O SPINA BIFIDA/HC] Onset: 1 Chronic Nutritional deficiencies (20 sources) Vitamin D deficiency; Translations: [Vitamin D deficiency, unspecified] Onset: 1 06-28-2011 Chronic Osteoarthritis (20 sources) Osteoarthritis of right knee joint; Translations: [Unilateral primary osteoarthritis, right knee] Onset: 2 04-01-2020 Chronic Other aftercare (2 sources) Long-term current use of drug therapy; Translations: [terminal system operator (current) use of antithrombotics/antipl atelets] 10-22-2024 Episodic Other aftercare (1 source) terminal system operator (current) use of antithrombotics/antipl atelets; Translations: [terminal system operator (current) use of antithrombotics/antipl atelets] Onset: 5 Episodic Other and unspecified benign neoplasm (1 source) History of polyp of colon; Translations: [History of colon polyps] 11-19-2024 Episodic Other connective tissue disease (20 sources) History of total knee arthroplasty; Translations: [Presence of right artificial knee joint] Onset: 0 04-13-2020 Chronic Other connective tissue disease (3 sources) Rotator cuff arthropathy of right shoulder; Translations: [Unspecified rotator cuff tear or rupture of right shoulder, not specified as traumatic] 12-31-2023 Episodic Other connective tissue disease (3 sources) Tear of right rotator cuff; Translations: [Unspecified rotator cuff tear or rupture of right shoulder, not specified as traumatic] Onset: 5 03-09-2025 Episodic Other diseases of veins and lymphatics (1 source) Stasis dermatitis; Translations: [Venous insufficiency (chronic) (peripheral)] 08-26-2024 Episodic Other diseases of veins and lymphatics (1 source) Venous insufficiency (chronic) (peripheral); Translations: [Venous insufficiency (chronic) (peripheral)] Onset: 4 Episodic Other gastrointestinal disorders (2 sources) Incontinence of feces; Translations: [Full incontinence of feces] 06-10-2024 Episodic Other hereditary and degenerative nervous system conditions (4 sources) Mild cognitive impairment, so stated; Translations: [MILD COGNITIVE IMPAIRMENT SO STATED] Onset: 2 Chronic Other hereditary and degenerative nervous system conditions (20 sources) Impaired cognition; Translations: [Mild cognitive impairment, so stated] Onset: 1 02-05-2023 Chronic Other injuries and conditions due to external causes (1 source) Unspecified multiple injuries, initial encounter; Translations: [Unspecified multiple injuries, initial encounter] Onset: 5 Episodic Other lower respiratory disease (1 source) Cough; Translations: [Cough, unspecified type] 01-04-2023 Episodic Other lower respiratory disease (7 sources) Dyspnea; Translations: [Dyspnea, unspecified] Onset: 6 08-01-2016 Episodic Other nervous system disorders (4 sources) Poor concentration; Translations: [Attention and concentration deficit] 10-20-2018 Chronic Other nervous system disorders (1 source) Other chronic pain; Translations: [Other chronic pain] Onset: 4 Chronic Other nervous system disorders (3 sources) Cognitive deficit in communication skills; Translations: [Cognitive communication deficit] Onset: 1 03-09-2025 Chronic Other nervous system disorders (5 sources) Pseudodementia; Translations: [Other symptoms and signs involving cognitive functions and awareness] 11-24-2018 Episodic Other nervous system disorders (3 sources) Postoperative pain ; Translations: [Other acute postprocedural pain] 09-27-2023 Episodic Other nervous system disorders (2 sources) Other acute postprocedural pain; Translations: [Other acute postoperative pain] 09-26-2023 Episodic Other nervous system disorders (8 sources) Abnormal gait; Translations: [Unspecified abnormalities of gait and mobility] Onset: 5 09-26-2024 Episodic Other nervous system disorders (1 source) Other abnormalities of gait and mobility; Translations: [Other abnormalities of gait and mobility] Onset: 5 Episodic Other nervous system disorders (1 source) Other symptoms and signs involving cognitive functions and awareness; Translations: [Other symptoms and signs involving cognitive functions and awareness] Onset: 5 Episodic Other nervous system disorders (1 source) Unspecified abnormalities of gait and mobility; Translations: [Unspecified abnormalities of gait and mobility] Onset: Episodic Other non-traumatic joint disorders (2 sources) Arthritis of left acromioclavicular joint 11-01-2024 Chronic Other non-traumatic joint disorders (4 sources) Pain in right knee; Translations: [Pain in joint, lower leg] 09-11-2024 Episodic Other non-traumatic joint disorders (4 sources) Hip pain; Translations: [Pain in left hip] 09-26-2024 Episodic Other non-traumatic joint disorders (2 sources) Hip stiff; Translations: [Stiffness of unspecified hip, not elsewhere classified] 09-26-2024 Episodic Other non-traumatic joint disorders (4 sources) Pain in right shoulder; Translations: [Pain in joint, shoulder region] 10-31-2024 Episodic Other non-traumatic joint disorders (2 sources) Pain in left shoulder; Translations: [Pain in joint, shoulder region] 10-31-2024 Episodic Other nutritional; endocrine; and metabolic disorders (2 sources) Obesity; Translations: [Obesity, unspecified] Chronic Other nutritional; endocrine; and metabolic disorders (20 sources) Body mass index 30+ - obesity; Translations: [Obesity, unspecified] Onset: 3 10-17-2023 Chronic Other nutritional; endocrine; and metabolic disorders (20 sources) Obese class II; Translations: [Obesity, Class II, BMI 35-39.9] Onset: 0 04-13-2020 Chronic Other nutritional; endocrine; and metabolic disorders (2 sources) Body mass index (BMI) 32.0-32.9, adult; Translations: [Body mass index (BMI) 32.0-32.9, adult] Onset: 4 Chronic Other nutritional; endocrine; and metabolic disorders (2 sources) Morbid obesity; Translations: [Morbid (severe) obesity due to excess calories] Onset: 5 03-20-2025 Chronic Other nutritional; endocrine; and metabolic disorders (1 source) Morbid (severe) obesity due to excess calories; Translations: [Morbid (severe) obesity due to excess calories] Onset: 5 Chronic Other skin disorders (5 sources) Callosity; Translations: [Corns and callosities] 05-19-2024 Episodic Other skin disorders (4 sources) Dystrophia unguium; Translations: [Nail dystrophy] 06-02-2024 Episodic Phlebitis; thrombophlebitis and thromboembolism (4 sources) 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; Translations: [CHR EMB THROM UNS DV RT DIST LW EXT] Onset: 1 Chronic Pneumonia (except that caused by tuberculosis or sexually transmitted disease) (4 sources) Pneumonia; Translations: [Pneumonia, unspecified organism] 10-20-2018 Episodic Residual codes; unclassified (20 sources) Obstructive sleep apnea syndrome; Translations: [Obstructive sleep apnea (adult) (pediatric)] Onset: 2 06-01-2022 Chronic Residual codes; unclassified (1 source) Obstructive sleep apnea (adult) (pediatric) Chronic Residual codes; unclassified (20 sources) Sleep apnea; Translations: [Sleep apnea, unspecified] Onset: 9 04-01-2020 Chronic Residual codes; unclassified (1 source) Restlessness and agitation; Translations: [Restlessness and agitation] Onset: 5 Chronic Residual codes; unclassified (4 sources) Edema; Translations: [Edema, unspecified] 11-23-2018 Episodic Residual codes; unclassified (4 sources) History of lumbar laminectomy; Translations: [Other specified postprocedural states] 09-27-2023 Episodic Residual codes; unclassified (2 sources) Other specified postprocedural states; Translations: [Other postprocedural status] 09-26-2023 Episodic Residual codes; unclassified (7 sources) Never smoked tobacco; Translations: [Other specified health status] Onset: 4 07-16-2024 Episodic Residual codes; unclassified (2 sources) Bilateral lower limb edema; Translations: [Localized edema] 08-26-2024 Episodic Residual codes; unclassified (1 source) Localized edema; Translations: [Localized edema] Onset: 4 Episodic Spondylosis; intervertebral disc disorders; other back problems (4 sources) Spondylosis without myelopathy or radiculopathy, cervical region; Translations: [SPONDYLS W/O MYELO-/RADICULOP CERV] Onset: 1 Chronic Suicide and intentional self-inflicted injury (4 sources) Suicidal thoughts; Translations: [Suicidal ideations] 09-11-2017 Episodic Superficial injury; contusion (7 sources) Hematoma of right knee region; Translations: [Contusion of right knee, initial encounter] 09-12-2024 Episodic Thyroid disorders (1 source) Nontoxic single thyroid nodule; Translations: [NONTOXIC SINGLE THYROID NODULE] Onset: 1 Chronic Unclassified (3 sources) Encounter for screening for malignant neoplasm of prostate; Translations: [Patient encounter status] Onset: 7 11-15-2023 Episodic Unclassified (4 sources) CONTACT W/AND (SUSP) EXPOS COVID-19; Translations: [CONTACT W/AND (SUSP) EXPOS COVID-19] Onset: 1 Unclassified (2 sources) COUGH, UNSPECIFIED; Translations: [COUGH, UNSPECIFIED] Onset: 1 Unclassified (1 source) Cough, unspecified; Translations: [Cough, unspecified] Onset: 3 Unclassified (1 source) New Patient Onset: 4 Unclassified (1 source) Personal history of colon polyps, unspecified; Translations: [Personal history of colon polyps, unspecified] Onset: 5 Unclassified (1 source) Low back pain, unspecified; Translations: [Low back pain, unspecified] Onset: 4 Unclassified (1 source) Medical Problem Onset: 4 Unclassified (1 source) neck/back pain, new fecal incontinence, back surgery in September 2023 Onset: 4 Past or Other Problems Problem Classification Problem Date Documented Da te Episodic/Chronic Biliary tract disease (20 sources) Gallstone; Translations: [Calculus of gallbladder without cholecystitis without obstruction] Onset: 03-14-2024 05-21-2024 Episodic Chronic obstructive pulmonary disease and bronchiectasis (1 source) Bronchitis, not specified as acute or chronic; Translations: [BRONCHITIS NOT SPEC ACUTE/CHRON] Onset: 06-27-2021 Episodic Coronary atherosclerosis and other heart disease (5 sources) Presence of aortocoronary bypass graft; Translations: [Personal history of surgery to heart and great vessels, presenting hazards to health] Onset: 08-30-2023 10-06-2023 Episodic Deficiency and other anemia (20 sources) Anemia; Translations: [Anemia, unspecified] Onset: 11-16-2022 Resolved: 06-06-2023 02-05-2023 Episodic Diabetes mellitus without complication (5 sources) Prediabetes; Translations: [Prediabetes] Onset: 06-28-2011 06-28-2011 Episodic Fever of unknown origin (1 source) Fever, unspecified; Translations: [FEVER UNSPECIFIED] Onset: 12-20-2021 Episodic Genitourinary symptoms and ill-defined conditions (20 sources) Retention of urine; Translations: [Retention of urine, unspecified] Onset: 02-06-2024 02-06-2024 Episodic Malaise and fatigue (20 sources) Left hemiparesis; Translations: [Weakness] Onset: 06-28-2011 10-20-2018 Episodic Mood disorders (20 sources) Mood disorders Onset: 06-10-2024 Resolved: 03-17-2025 06-10-2024 Nausea and vomiting (2 sources) Postoperative nausea and vomiting; Translations: [Nausea with vomiting, unspecified] Onset: 04-12-2020 Resolved: 04-13-2020 04-13-2020 Episodic Nonspecific chest pain (1 source) Chest pain, unspecified; Translations: [Chest pain, unspecified] Onset: 07-17-2017 Episodic Nutritional deficiencies (3 sources) Cobalamin deficiency; Translations: [Deficiency of other specified B group vitamins] Onset: 06-10-2024 06-10-2024 Episodic Other aftercare (4 sources) Other fdc (current) drug therapy; Translations: [OTH [facility]CI CURRENT DRUG THERAPY] Onset: 12-20-2021 Episodic Other aftercare (1 source) Drug therapy finding; Translations: [Other fdc (current) drug therapy] 12-27-2023 Episodic Other aftercare (5 sources) correction (current) use of 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; 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] Onset: 07-18-2022 Episodic Other circulatory disease (2 sources) Low blood pressure; Translations: [Hypotension, unspecified] Onset: 10-10-2008 Resolved: 06-28-2011 06-28-2011 Episodic Other connective tissue disease (20 sources) Muscle weakness of limb; Translations: [Other symptoms and signs involving the musculoskeletal system] Onset: 09-20-2023 09-20-2023 Episodic Other connective tissue disease (1 source) Disorder of rotator cuff; Translations: [Unspecified disorder of synovium and tendon, left shoulder] 11-15-2023 Episodic Other gastrointestinal disorders (20 sources) Constipation; Translations: [Constipation, unspecified] Onset: 10-15-2023 11-23-2018 Episodic Other gastrointestinal disorders (5 sources) Heartburn; Translations: [Heartburn] Onset: 11-07-2012 11-07-2012 Episodic Other gastrointestinal disorders (1 source) Constipation, unspecified; Translations: [Constipation, unspecified] Onset: 10-15-2023 Episodic Other gastrointestinal disorders (1 source) Other constipation; Translations: [Other constipation] Onset: 10-15-2023 Episodic Other gastrointestinal disorders (1 source) Full incontinence of feces; Translations: [Full incontinence of feces] Onset: 06-10-2024 Episodic Other inflammatory condition of skin (3 sources) Erythematous condition, unspecified; Translations: [ERYTHEMATOUS CONDITION UNSPECIFIED] Onset: 12-18-2021 Episodic Other injuries and conditions due to external causes (5 sources) Injury of rotator cuff; Translations: [Unspecified injury of muscle(s) and tendon(s) of the rotator cuff of unspecified shoulder, initial encounter] Onset: 02-14-2013 02-14-2013 Episodic Other lower respiratory disease (5 sources) Chronic cough; Translations: [Chronic cough] Onset: 11-07-2012 11-07-2012 Episodic Other lower respiratory disease (1 source) Dyspnea on exertion; Translations: [Other forms of dyspnea] 12-02-2023 Episodic Other nervous system disorders (20 sources) Sensory symptoms; Translations: [Paresthesia of skin] Onset: 11-16-2022 11-16-2022 Episodic Other nervous system disorders (2 sources) Numbness of lower limb ; Translations: [Anesthesia of skin] 11-06-2023 Episodic Other skin disorders (4 sources) Localized swelling, mass and lump, right lower limb; Translations: [LOC SWELL MASS LUMP RT LOWER LIMB] Onset: 12-19-2021 Episodic Other skin disorders (5 sources) Skin tag; Translations: [Other hypertrophic disorders of the skin] Onset: 01-29-2015 01-29-2015 Episodic Other upper respiratory disease (20 sources) Granuloma of vocal cords; Translations: [Other diseases of vocal cords] Onset: 11-07-2012 11-07-2012 Episodic Paralysis (20 sources) Compression of cauda equina; Translations: [Cauda equina syndrome] Onset: 09-20-2023 Resolved: 09-26-2023 09-27-2023 Chronic Phlebitis; thrombophlebitis and thromboembolism (1 source) Personal history of other venous thrombosis and embolism; Translations: [PERS HX OTH VENOUS THROMBOSIS AND EMBO] Onset: 06-27-2021 Episodic Residual codes; unclassified (7 sources) Amnesia; Translations: [Other amnesia] Onset: 03-23-2021 11-24-2018 Episodic Residual codes; unclassified (20 sources) Family history of ischemic heart disease; Translations: [Family history of ischemic heart disease and other diseases of the circulatory system] Onset: 06-28-2011 06-28-2011 Episodic Residual codes; unclassified (3 sources) H/O: urinary disease; Translations: [Personal history of other specified conditions] 02-06-2024 Episodic Residual codes; unclassified (1 source) Cauda equina syndrome suspected; Translations: [Other general symptoms and signs] 06-10-2024 Episodic Residual codes; unclassified (3 sources) Insomnia; Translations: [Insomnia, unspecified] Onset: 07-26-2024 03-09-2025 Episodic Residual codes; unclassified (2 sources) Other specified health status; Translations: [Other specified health status] Onset: 07-16-2024 Episodic Residual codes; unclassified (1 source) Other general symptoms and signs; Translations: [Other general symptoms and signs] Onset: 06-10-2024 Episodic Retinal detachments; defects; vascular occlusion; and retinopathy (20 sources) Retinal detachment; Translations: [Serous retinal detachment, unspecified eye] Onset: 06-01-2022 06-01-2022 Episodic Skin and subcutaneous tissue infections (3 sources) Cellulitis of right lower limb; Translations: [Cellulitis of right foot] Onset: 12-20-2021 05-01-2024 Episodic Spondylosis; intervertebral disc disorders; other back problems (20 sources) Spinal stenosis of lumbar region; Translations: [Spinal stenosis, lumbar region without neurogenic claudication] Onset: 09-20-2023 09-27-2023 Episodic Sprains and strains (20 sources) Strain of muscle(s) and tendon(s) of the rotator cuff of right shoulder, initial encounter; Translations: [Rotator cuff (capsule) sprain] Onset: 10-03-2022 Resolved: 10-03-2022 10-03-2022 Episodic Unclassified (1 source) CONTACT W/AND (SUSP) EXPOS COVID-19; Translations: [CONTACT W/AND (SUSP) EXPOS COVID-19] Onset: 09-09-2021 Unclassified (2 sources) COUGH, UNSPECIFIED; Translations: [COUGH, UNSPECIFIED] Onset: 06-23-2021 Unclassified (2 sources) Never smoked tobacco; Translations: [Never a smoker] Unclassified (4 sources) Onset: 10-17-2023 Resolved: 03-19-2025 10-17-2023 Unclassified (2 sources) Arthritis of left shoulder region 11-01-2024 Results Test Name Value Interpretation Reference Range Facility XR Foot - left 3 [facility] Result: AP, medial oblique, lateral views are weight-bearing. Significantly decreased calcaneal inclination, increased talar declination. Enthesophyte at the insertion of the Achilles tendon. I do not appreciate any acute fractures. There does seem to be a chronic, healed fracture of the 4th proximal phalanx but it has cortical continuity without any fracture line visible. Exquisite contracture of all 5 toes. [facility] Radiology Study observation (narrative) [facility] CBC WITH AUTO DIFFERENTIALon 01-28-2025 BASOPHILS ABSOLUTE COUNT (10*3/UL) BY AUTOMATED COUNT 0.0 10*3/uL Normal 0.0-0.2 [facility] Comment on above: Performed By: #### 2 132-9, 4086-5, CBCA, LIVR, 2345-7, 16295-8 #### [facility] ([id number]) [address], [address] [place] [address] #### 40196-5 #### [facility] ([id number]) [address] [place] [address], [place] [address] BASOPHILS RELATIVE PERCENT BY AUTOMATED COUNT 0.5 % Normal [facility] Comment on above: Performed By: #### 2 132-9, 4086-5, CBCA, LIVR, 234-7, 76942-1 #### [facility] ([id number]) [address], [address] [place] [address] #### 07524-4 #### [facility] ([id number]) [address] [place] [address] CELLAVISION DIFFERENTIAL TYPE AUTOMATED DIFFERENTIAL Normal [facility] Comment on above: Performed By: #### 2 132-9, 4086-5, CBCA, LIVR, 2344-7, 61262-9 #### [facility] ([id number]) [address], [address] [place] [address] #### 61247-8 #### [facility] ([id number]) [address] [place] [address] Eosinophils (Bld) [#/Vol] 0.1 10*3/uL Normal 0.0-0.4 [facility] Comment on above: Performed By: #### 2 132-9, 4086-5, CBCA, LIVR, 2344-, 56607-0 #### [facility] ([id number]) [address], [address] [place] [address] #### 11942-7 #### [facility] ([id number]) [address] [place] [address] EOSINOPHILS RELATIVE PERCENT BY AUTOMATED COUNT 1.9 % Normal [facility] Comment on above: Performed By: #### 2 132-9, 4086-5, CBCA, LIVR, 234-7, 57316-7 #### [facility] ([id number]) [address], [address] [place] [address] #### 87441-7 #### [facility] ([id number]) [address] [place] [address] Erythrocyte distribution width (RBC) [Ratio] 16.4 % High 11.5-15 [facility] Comment on above: Performed By: #### 2 132-9, 4086-5, CBCA, LIVR, 2345-7, 61218-0 #### [facility] ([id number]) [address] [place] [address], [address] [address] #### 18466-3 #### [facility] ([id number]) [address] [place] [address] Hematocrit (Bld) [Volume fraction] 40.6 % Normal 39-50 [facility] Comment on above: Performed By: #### 2 132-9, 6-5, CBCA, LIVR, 2344-7, 95205-9 #### [facility] ([id number]) [address] [place] [address], [address] [address] #### 10761-0 #### [facility] ([id number]) [address] [place] [address] Hemoglobin (Bld) [Mass/Vol] 13.8 g/dL Normal 13-17 [facility] Comment on above: Performed By: #### 2 132-9, 4086-5, CBCA, LIVR, 234-7, 86935-1 #### [facility] ([id number]) [address] [place] [address], [address] [address] #### 11166-7 #### [facility] ([id number]) [address] [place] [address] LYMPHOCYTES ABSOLUTE COUNT (10*3/UL) BY AUTOMATED COUNT 1.3 10*3/uL Normal 1.0-3.5 [facility] Comment on above: Performed By: #### 2 132-9, 4086-5, CBCA, LIVR, 2345-7, 10701-1 #### [facility] ([id number]) [address], [address] [place] [address] #### 69338-0 #### [facility] ([id number]) [address] [place] [address] LYMPHOCYTES RELATIVE PERCENT BY AUTOMATED COUNT 16.9 % Normal [facility] Comment on above: Performed By: #### 2 132-9, 4086-5, CBCA, LIVR, 2345-7, 91273-8 #### [facility] ([id number]) [address], [address] [place] [address] #### 78951-8 #### [facility] ([id number]) [address] [place] [address] MCH (RBC) [Entitic mass] 30.7 pg Normal 27-34 [facility] Comment on above: Performed By: #### 2 132-9, 4086-5, CBCA, LIVR, 234-7, 91738-8 #### [facility] ([id number]) [address], [address] [place] [address] #### 81096-5 #### [facility] ([id number]) [address] [place] [address]6625 MCHC (RBC) [Mass/Vol] 34.1 g/dL Normal 32-36 [facility] Comment on above: Performed By: #### 2 132-9, 4086-5, CBCA, LIVR, 2345-7, 37111-5 #### [facility] ([id number]) [address], [address] [place] [address] #### 32798-0 #### [facility] ([id number]) [address] [place] [address]60 MCV (RBC) [Entitic vol] 90 fL Normal 80-100 [facility] Comment on above: Performed By: #### 2 132-9, 4086-5, CBCA, LIVR, 2345-7, 76926-8 #### [facility] ([id number]) [address], [address] [place] [address] #### 64918-4 #### [facility] ([id number]) [address] [place] [address] MONOCYTES ABSOLUTE COUNT (10*3/UL) BY AUTOMATED COUNT 0.6 10*3/uL Normal 0.0-0.9 [facility] Comment on above: Performed By: #### 2 132-9, 4086-5, CBCA, LIVR, 2345-7, 78564-4 #### [facility] ([id number]) [address], [address] [place] [address] #### 80316-0 #### [facility] ([id number]) [address] [place] [address] MONOCYTES RELATIVE PERCENT BY AUTOMATED COUNT 7.5 % Normal [facility] Comment on above: Performed By: #### 2 132-9, 4086-5, CBCA, LIVR, 234-7, 72913-4 #### [facility] ([id number]) [address], [address] [place] [address] #### 75364-8 #### [facility] ([id number]) [address] [place] [address] NEUTROPHILS ABSOLUTE COUNT BY AUTOMATED COUNT 5.5 10*3/uL Normal 1.5-6.6 [facility] Comment on above: Performed By: #### 2 132-9, 4086-5, CBCA, LIVR, 2345-7, 08323-2 #### [facility] ([id number]) [address], [address] [place] [address] #### 41918-3 #### [facility] ([id number]) [address] [place] [address] NEUTROPHILS RELATIVE PERCENT BY AUTOMATED COUNT 73.2 % Normal [facility] Comment on above: Performed By: #### 2 132-9, 4086-5, CBCA, LIVR, 234-7, 84615-1 #### [facility] ([id number]) [address] [place] [address], [address] [address] #### 14262-2 #### [facility] ([id number]) [address] [place] [address]1976 Platelet mean volume (Bld) [Entitic vol] 7.3 fL Normal 7-12 [facility] Comment on above: Performed By: #### 2 132-9, 4086-5, CBCA, LIVR, 2344-7, 63682-2 #### [facility] ([id number]) [address] [place] [address], [address] [address] #### 29720-8 #### [facility] ([id number]) [address] [place] [address] Platelets (Bld) [#/Vol] 243 10*3/uL Normal 150-450 [facility] Comment on above: Performed By: #### 2 132-9, 4086-5, CBCA, LIVR, 234-7, 51746-9 #### [facility] ([id number]) [address] [place] [address], [address] [place] [address] #### 46755-4 #### [facility] ([id number]) [address] [place] [address]7782 RBC COUNT 4.50 X10E12/L Normal 4.1-5.7 [facility] Comment on above: Performed By: #### 2 132-9, 4086-5, CBCA, LIVR, 234-7, 37438-0 #### [facility] ([id number]) [address], [address] [place] [address] #### 66285-3 #### [facility] ([id number]) [address] [place] [address]663 WBC (Bld) [#/Vol] 7.6 10*3/uL Normal 4-11 [facility] Comment on above: Performed By: #### 2 132-9, 4086-5, CBCA, LIVR, 2345-7, 36214-5 #### [facility] ([id number]) [address], [address] [place] [address] #### 99722-3 #### [facility] ([id number]) [address] [place] [address] LIVER PANELon 01-28-2025 Albumin [Mass/Vol] 4.3 g/dL Normal 3.2-5.3 [facility] Comment on above: Performed By: #### 2 132-9, 4086-5, CBCA, LIVR, 2345-7, 83690-5 #### [facility] ([id number]) [address], [address] [place] [address] #### 72546-7 #### [facility] ([id number]) [address] [place] [address]99 ALP [Catalytic activity/Vol] 64 U/L Normal 39-130 [facility] Comment on above: Performed By: #### 2 132-9, 4086-5, CBCA, LIVR, 2345-7, 84348-8 #### [facility] ([id number]) [address], [address] [place] [address] #### 26985-4 #### [facility] ([id number]) [address] [place] [address] 19806 ALT [Catalytic activity/Vol] 21 U/L Normal <=40 [facility] Comment on above: Performed By: #### 2 132-9, 4086-5, CBCA, LIVR, 2345-7, 44812-1 #### [facility] ([id number]) [address], [address] [place] [address] #### 21472-3 #### [facility] ([id number]) [address] [place] [address] 98045 AST [Catalytic activity/Vol] 20 U/L Normal <=41 [facility] Comment on above: Performed By: #### 2 132-9, 4086-5, CBCA, LIVR, 2345-7, 01570-4 #### [facility] ([id number]) [address], [address] [place] [address] #### 92760-0 #### [facility] ([id number]) [address] [place] [address] Bilirubin [Mass/Vol] 0.3 mg/dL Normal 0.3-1.2 [facility] Comment on above: Performed By: #### 2 132-9, 4086-5, CBCA, LIVR, 2345-7, 64471-1 #### [facility] ([id number]) [address], [address] [place] [address] #### 11159-1 #### [facility] ([id number]) [address] [place] [address]2705 Bilirubin.indirect [Mass/Vol] mg/dL Normal <=0.4 [facility] Comment on above: Performed By: #### 2 132-9, 4086-5, CBCA, LIVR, 2345-7, 92724-4 #### [facility] ([id number]) [address], [address] [place] [address] #### 96646-7 #### [facility] ([id number]) [address] [place] [address]2713 Protein [Mass/Vol] 7.1 g/dL Normal 6.0-8.0 [facility] Comment on above: Performed By: #### 2 132-9, 4086-5, CBCA, LIVR, 2345-7, 54829-5 #### [facility] ([id number]) [address], [address] [place] [address] #### 83679-8 #### [facility] ([id number]) [address] [place] [address]134 VALPROIC ACID DEPAKANEon VALPROIC ACID 34 ug/mL Low 50-100 [facility] Comment on above: Performed By: #### 2 132-9, 4086-5, CBCA, LIVR, 2345-7, 69288-6 #### [facility] ([id number]) [address], [address] [place] [address] #### 72757-8 #### [facility] ([id number]) [address] [place] [address]45[address] ACETAMINOPHEN LEVELon 2024 Acetaminophen [Mass/Vol] 16.9 ug/mL Normal 10.0-30.0 [facility] Comment on above: Order Comment: Refer ence ranges are for therapeutic limits. Performed By: #### 2 132-9, 4086-5, CBCA, LIVR, 2345-7, 17994-3 #### [facility] ([id number]) [address], [address] [place] [address] #### 07752-1 #### [facility] ([id number]) [address] [place] [address] CBC WITH AUTO DIFFERENTIALon 01-18-2025 BASOPHILS ABSOLUTE COUNT (10*3/UL) BY AUTOMATED COUNT 0.0 10*3/uL Normal 0.0-0.2 [facility] Comment on above: Performed By: #### 2 132-9, 4086-5, CBCA, LIVR, 234-7, 02164-1 #### [facility] ([id number]) [address], [address] [place] [address] #### 55076-0 #### [facility] ([id number]) [address] [place] [address] BASOPHILS RELATIVE PERCENT BY AUTOMATED COUNT 0.3 % Normal [facility] Comment on above: Performed By: #### 2 132-9, 4086-5, CBCA, LIVR, 2344-, 37322-9 #### [facility] ([id number]) [address], [address] [place] [address] #### 91808-1 #### [facility] ([id number]) [address] [place] [address] CELLAVISION DIFFERENTIAL TYPE AUTOMATED DIFFERENTIAL Normal [facility] Comment on above: Performed By: #### 2 132-9, 4086-5, CBCA, LIVR, 2345-03, 95036-0 #### [facility] ([id number]) [address], [address] [place] [address] #### 68465-5 #### [facility] ([id number]) [address] [place] [address] 20142 Eosinophils (Bld) [#/Vol] 0.2 10*3/uL Normal 0.0-0.4 [facility] Comment on above: Performed By: #### 2 132-9, 4086-5, CBCA, LIVR, 234-7, 59000-5 #### [facility] ([id number]) [address], [address] [place] [address] #### 77939-7 #### [facility] ([id number]) [address] [place] [address] 39795 EOSINOPHILS RELATIVE PERCENT BY AUTOMATED COUNT 1.6 % Normal [facility] Comment on above: Performed By: #### 2 132-9, 4086-5, CBCA, LIVR, 2345-7, 70979-5 #### [facility] ([id number]) [address] [place] [address], [address] [place] [address] #### 13004-0 #### [facility] ([id number]) [address] [place] [address] 23023 Erythrocyte distribution width (RBC) [Ratio] 16.7 % High 11.5-15 [facility] Comment on above: Performed By: #### 2 132-9, 4086-5, CBCA, LIVR, 234-7, 33207-5 #### [facility] ([id number]) [address] [place] [address], [address] [address] #### 91474-7 #### [facility] ([id number]) [address] [place] [address] 50193 Hematocrit (Bld) [Volume fraction] 42.2 % Normal 39-50 [facility] Comment on above: Performed By: #### 2 132-9, 4086-5, CBCA, LIVR, 234-7, 70262-3 #### [facility] ([id number]) [address] [place] [address], [address] [place] [address] #### 20135-7 #### [facility] ([id number]) [address] [place] [address] 71273 Hemoglobin (Bld) [Mass/Vol] 14.4 g/dL Normal 13-17 [facility] Comment on above: Performed By: #### 2 132-9, 4086-5, CBCA, LIVR, 2345-7, 92211-3 #### [facility] ([id number]) [address], [address] [place] [address] #### 96920-9 #### [facility] ([id number]) [address] [place] [address] 04249 LYMPHOCYTES ABSOLUTE COUNT (10*3/UL) BY AUTOMATED COUNT 1.6 10*3/uL Normal 1.0-3.5 [facility] Comment on above: Performed By: #### 2 132-9, 4086-5, CBCA, LIVR, 2345-7, 90314-8 #### [facility] ([id number]) [address], [address] [place] [address] #### 91355-9 #### [facility] ([id number]) [address] [place] [address] 62495 LYMPHOCYTES RELATIVE PERCENT BY AUTOMATED COUNT 14.8 % Normal [facility] Comment on above: Performed By: #### 2 132-9, 4086-5, CBCA, LIVR, 2345-7, 32020-3 #### [facility] ([id number]) [address], [address] [place] [address] #### 34850-3 #### [facility] ([id number]) [address] [place] [address] 70716 MCH (RBC) [Entitic mass] 30.4 pg Normal 27-34 [facility] Comment on above: Performed By: #### 2 132-9, 4086-5, CBCA, LIVR, 2345-7, 70868-0 #### [facility] ([id number]) [address], [address] [place] [address] #### 78521-2 #### [facility] ([id number]) [address] [place] [address] 00298 MCHC (RBC) [Mass/Vol] 34.1 g/dL Normal 32-36 [facility] Comment on above: Performed By: #### 2 132-9, 4086-5, CBCA, LIVR, 2345-7, 13857-7 #### [facility] ([id number]) [address], [address] [place] [address] #### 79307-1 #### [facility] ([id number]) [address] [place] [address] 73339 MCV (RBC) [Entitic vol] 89 fL Normal 80-100 [facility] Comment on above: Performed By: #### 2 132-9, 4086-5, CBCA, LIVR, 2344-7, 77863-9 #### [facility] ([id number]) [address] [facility], [address] [place] [address] #### 55535-1 #### [facility] ([id number]) [address] [place] [address] 95083 MONOCYTES ABSOLUTE COUNT (10*3/UL) BY AUTOMATED COUNT 0.9 10*3/uL Normal 0.0-0.9 [facility] Comment on above: Performed By: #### 2 132-9, 4086-5, CBCA, LIVR, 2344-7, 84931-5 #### [facility] ([id number]) [address], [address] [place] [address] #### 54259-4 #### [facility] ([id number]) [address] [place] [address] 26355 MONOCYTES RELATIVE PERCENT BY AUTOMATED COUNT 7.8 % Normal [facility] Comment on above: Performed By: #### 2 132-9, 4086-5, CBCA, LIVR, 2344-7, 33717-4 #### [facility] ([id number]) [address], [address] [place] [address] #### 68446-5 #### [facility] ([id number]) [address] [place] [address] 92859 NEUTROPHILS ABSOLUTE COUNT BY AUTOMATED COUNT 8.2 10*3/uL High 1.5-6.6 [facility] Comment on above: Performed By: #### 2 132-9, 4086-5, CBCA, LIVR, 234-7, 98646-6 #### [facility] ([id number]) [address] [place] [address], [address] [place] [address] #### 42226-8 #### [facility] ([id number]) [address] [place] [address] 00224 NEUTROPHILS RELATIVE PERCENT BY AUTOMATED COUNT 75.5 % Normal [facility] Comment on above: Performed By: #### 2 132-9, 4086-5, CBCA, LIVR, 234-7, 07157-6 #### [facility] ([id number]) [address] [place] [address], [address] [place] [address] #### 81111-5 #### [facility] ([id number]) [address] [place] [address] 97318 Platelet mean volume (Bld) [Entitic vol] 7.5 fL Normal 7-12 [facility] Comment on above: Performed By: #### 2 132-9, 4086-5, CBCA, LIVR, 234-7, 24141-3 #### [facility] ([id number]) [facility], [address] [place] [address] #### 40446-5 #### [facility] ([id number]) [address] [place] [address] 89804 Platelets (Bld) [#/Vol] 297 10*3/uL Normal 150-450 [facility] Comment on above: Performed By: #### 2 132-9, 4086-5, CBCA, LIVR, 2345-7, 76490-1 #### [facility] ([id number]) [address], [address] [place] [address] #### 79430-5 #### [facility] ([id number]) [address] [place] [address] 58499 RBC COUNT 4.73 X10E12/L Normal 4.1-5.7 [facility] Comment on above: Performed By: #### 2 132-9, 4086-5, CBCA, LIVR, 2345-7, 49834-6 #### [facility] ([id number]) [address] [facility], [address] [place] [address] #### 28693-8 #### [facility] ([id number]) [address] [place] [address] 22743 WBC (Bld) [#/Vol] 10.8 10*3/uL Normal 4-11 [facility] Comment on above: Performed By: #### 2 132-9, 4086-5, CBCA, LIVR, 2345-7, 06458-4 #### [facility] ([id number]) [address] [facility], [address] [place] [address] #### 42002-4 #### [facility] ([id number]) [address] [place] [address] 67585 COMPREHENSIVE METABOLIC PANE Néstor 01-18-2025 Albumin [Mass/Vol] 4.2 g/dL Normal 3.2-5.3 [facility] Comment on above: Performed By: #### 2 132-9, 4086-5, CBCA, LIVR, 2345-7, 98939-9 #### [facility] ([id number]) [address] [facility], [address] [place] [address] #### 22008-3 #### [facility] ([id number]) [address] [place] [address] 74444 ALP [Catalytic activity/Vol] 91 U/L Normal 39-130 [facility] Comment on above: Performed By: #### 2 132-9, 4086-5, CBCA, LIVR, 2345-7, 89844-9 #### [facility] ([id number]) [address], [address] [place] [address] #### 80853-4 #### [facility] ([id number]) [address] [place] [address] 64499 ALT [Catalytic activity/Vol] 31 U/L Normal <=40 [facility] Comment on above: Performed By: #### 2 132-9, 4086-5, CBCA, LIVR, 2345-7, 73144-6 #### [facility] ([id number]) [address] [facility], [address] [place] [address] #### 12886-0 #### [facility] ([id number]) [address] [place] [address] 04142 Anion gap [Moles/Vol] 6 mmol/L Normal 5-15 [facility] Comment on above: Performed By: #### 2 132-9, 4086-5, CBCA, LIVR, 2345-7, 38706-3 #### [facility] ([id number]) [address], [address] [place] [address] #### 27784-1 #### [facility] ([id number]) [address] [place] [address] 97031 AST [Catalytic activity/Vol] 32 U/L Normal <=41 [facility] Comment on above: Performed By: #### 2 132-9, 4086-5, CBCA, LIVR, 2345-7, 23545-1 #### [facility] ([id number]) [address], [address] [place] [address] #### 68842-1 #### [facility] ([id number]) [address] [place] [address] 04259 Bilirubin [Mass/Vol] 0.9 mg/dL Normal 0.3-1.2 [facility] Comment on above: Result Comment: R-Re sults questionable due to hemolysis Performed By: #### 2 132-9, 4086-5, CBCA, LIVR, 2345-7, 09739-0 #### [facility] ([id number]) [address] [place] [address], [address] [place] [address] #### 88780-7 #### [facility] ([id number]) [address] [place] [address] 86600 Calcium [Mass/Vol] 8.9 mg/dL Normal 8.5-10.5 [facility] Comment on above: Performed By: #### 2 132-9, 4086-5, CBCA, LIVR, 234-7, 54078-6 #### [facility] ([id number]) [address] [place] [address], [address] [place] [address] #### 18345-4 #### [facility] ([id number]) [address] [place] [address] 84514 Chloride [Moles/Vol] 105 mmol/L Normal 98-109 [facility] Comment on above: Performed By: #### 2 132-9, 4086-5, CBCA, LIVR, 234-7, 41581-2 #### [facility] ([id number]) [address] [place] [address], [address] [place] [address] #### 91037-1 #### [facility] ([id number]) [address] [place] [address] 28639 CO2 [Moles/Vol] 21 mmol/L Low 22-32 [facility] Comment on above: Performed By: #### 2 132-9, 4086-5, CBCA, LIVR, 2345-7, 50440-8 #### [facility] ([id number]) [address] [facility], [address] [place] [address] #### 12224-5 #### [facility] ([id number]) [address] [place] [address] 74571 Creatinine [Mass/Vol] 0.93 mg/dL Normal 0.70-1.20 [facility] Comment on above: Result Comment: METH OD TRACEABLE TO IDMS STANDARD Performed By: #### 2 132-9, 4086-5, CBCA, LIVR, 2344-7, 55839-8 #### [facility] ([id number]) [address] [facility], [address] [place] [address] #### 61829-7 #### [facility] ([id number]) [address] [place] [address] 66760 GFR/1.73 sq M.predicted among non-blacks MDRD (S/P/Bld) [Vol rate/Area] 90 mL/min/{1.73_m2} Normal >=60 [facility] Comment on above: Result Comment: eGFR not reported due to non-numeric value for Creatinine. Reported eGFR is based on the CKD-EPI 2021 equation that does not use a race coefficient. Performed By: #### 2 132-9, 4086-5, CBCA, LIVR, 234-7, 14400-4 #### [facility] ([id number]) [address] [facility], [address] [place] [address] #### 20560-4 #### [facility] ([id number]) [address] [place] [address] 97027 Glucose [Mass/Vol] 132 mg/dL High 65-99 [facility] Comment on above: Performed By: #### 2 132-9, 4086-5, CBCA, LIVR, 2345-7, 31681-3 #### [facility] ([id number]) [address] [facility], [address] [place] [address] #### 01644-7 #### [facility] ([id number]) [address] [place] [address] 39767 Potassium [Moles/Vol] 4.6 mmol/L Normal 3.5-5.0 [facility] Comment on above: Result Comment: R-Sp ecimen hemolyzed, results increased Performed By: #### 2 132-9, 4086-5, CBCA, LIVR, 2345-7, 71082-9 #### [facility] ([id number]) [address] [facility], [address] [place] [address] #### 84727-9 #### [facility] ([id number]) [address] [place] [address] 17659 Protein [Mass/Vol] 7.7 g/dL Normal 6.0-8.0 [facility] Comment on above: Performed By: #### 2 132-9, 4086-5, CBCA, LIVR, 2345-7, 41943-3 #### [facility] ([id number]) [address] [facility], [address] [place] [address] #### 46666-0 #### [facility] ([id number]) [address] [place] [address] 03753 Sodium [Moles/Vol] 132 mmol/L Low 134-146 [facility] Comment on above: Performed By: #### 2 132-9, 4086-5, CBCA, LIVR, 2345-7, 18889-9 #### [facility] ([id number]) [address] [facility], [address] [place] [address] #### 23638-6 #### [facility] ([id number]) [address] [place] [address] 10910 Urea nitrogen [Mass/Vol] 27 mg/dL Normal 5-27 [facility] Comment on above: Performed By: #### 2 132-9, 4086-5, CBCA, LIVR, 2345-7, 34177-2 #### [facility] ([id number]) [address] [facility], [address] [place] [address] #### 30852-7 #### [facility] ([id number]) [address] [place] [address] 59685 DRUG SCREEN, URINEon 025 AMPHETAMINE/METHAM P Negative Normal Negative [facility] Comment on above: Result Comment: AMPH /METH screening cut off = 1000 ng/mL Performed By: #### 2 132-9, 4086-5, CBCA, LIVR, 234-7, 99307-6 #### [facility] ([id number]) [address] [facility], [address] [place] [address] #### 38494-4 #### [facility] ([id number]) [address] [place] [address] 94860 BARBITURATES Negative Normal Negative [facility] Comment on above: Result Comment: Jaci iturates screening cut off value = 200 ng/mL Performed By: #### 2 132-9, 4086-5, CBCA, LIVR, 234-7, 29378-2 #### [facility] ([id number]) [address] [facility], [address] [place] [address] #### 69003-4 #### [facility] ([id number]) [address] [place] [address] 47520 BENZODIAZEPINES Negative Normal Negative [facility] Comment on above: Result Comment: Jonathan odiazepines screening cut off value = 200 ng/mL Performed By: #### 2 132-9, 4086-5, CBCA, LIVR, 2345-7, 46611-1 #### [facility] ([id number]) [address] [facility], [address] [place] [address] #### 11658-4 #### [facility] ([id number]) [address] [place] [address] 77609 CANNABINOIDS Negative Normal Negative [facility] Comment on above: Result Comment: Emerald abinoids/THC screening cut off value = 50 ng/mL Performed By: #### 2 132-9, 4086-5, CBCA, LIVR, 2345-7, 18547-2 #### [facility] ([id number]) [address], [address] [place] [address] #### 15849-8 #### [facility] ([id number]) [address] [place] [address] 65479 COCAINE METABOLITE Negative Normal Negative [facility] Comment on above: Result Comment: Coca ine screening cut off value = 300 ng/mL Performed By: #### 2 132-9, 4086-5, CBCA, LIVR, 2345-7, 98585-4 #### [facility] ([id number]) [address], [address] [place] [address] #### 09779-3 #### [facility] ([id number]) [address] [place] [address] 90295 ECSTASY Negative Normal Negative [facility] Comment on above: Result Comment: Ecst asy screening cut off value = 500 ng/mL Performed By: #### 2 132-9, 4086-5, CBCA, LIVR, 2345-7, 69408-7 #### [facility] ([id number]) [address], [address] [place] [address] #### 21313-9 #### [facility] ([id number]) [address] [place] [address] 23575 METHADONE Negative Normal Negative [facility] Comment on above: Result Comment: Meth adone screening cut off value = 300 ng/mL. Performed By: #### 2 132-9, 4086-5, CBCA, LIVR, 2345-7, 42469-3 #### [facility] ([id number]) [address] [place] [address], [facility] [address] [place] [address] #### 24502-3 #### [facility] ([id number]) [address] [place] [address] 40759 OPIATES Negative Normal Negative [facility] Comment on above: Result Comment: Opia trudi screening cut off value = 300 ng/mL This test is used for the detection of codeine, hydrocodone (>1000 ng/mL), morphine and hydromorphone (>900 ng/mL) in urine. Performed By: #### 2 132-9, 4086-5, CBCA, LIVR, 7, 52651-2 #### [facility] ([id number]) [address] [place] [address], [address] [address] #### 26421-8 #### [facility] ([id number]) [address] [place] [address] 60215 OXYCODONE Negative Normal Negative [facility] Comment on above: Result Comment: Oxyc odone screening cut off value = 300 ng/mL This test is used for the detection of oxycodone and oxymorphone in urine. Performed By: #### 2 132-9, 4086-5, CBCA, LIVR, 2347, 94759-1 #### [facility] ([id number]) [address] [place] [address], [address] [place] [address] #### 81082-4 #### [facility] ([id number]) [address] [place] [address] 96940 PHENCYCLIDINE Negative Normal Negative [facility] Comment on above: Result Comment: Phen cyclidine screening cut off value = 25 ng/mL Performed By: #### 2 132-9, 4086-5, CBCA, LIVR, 2345-7, 30930-3 #### [facility] ([id number]) [address], [address] [place] [address] #### 19311-0 #### [facility] ([id number]) [address] [place] [address] 21033 ETHANOLon 01-18-2025 Ethanol [Mass/Vol] mg/dL Normal <=0.080 [facility] Comment on above: Result Comment: This report is intended for use in clinical monitoring or management of patients. Performed By: #### 2 132-9, 4086-5, CBCA, LIVR, 234-7, 16533-4 #### [facility] ([id number]) [address], [address] [place] [address] #### 25248-3 #### [facility] ([id number]) [address] [place] [address] 83173 POCT NURSING URINE MACROSCOP IC UAon 01-18-2025 BILIRUBIN FERNANDO Negative Normal Negative [facility] Comment on above: Performed By: #### 2 132-9, 4086-5, CBCA, LIVR, 234-7, 98333-0 #### [facility] ([id number]) [address], [address] [place] [address] #### 15043-4 #### [facility] ([id number]) [address] [place] [address] 13962 BLOOD/HGB FERNANDO Trace Abnormal Negative [facility] Comment on above: Performed By: #### 2 132-9, 4086-5, CBCA, LIVR, 2345-7, 30818-9 #### [facility] ([id number]) [address], [address] [place] [address] #### 98306-1 #### [facility] ([id number]) [address] [place] [address] 33377 GLUCOSE FERNANDO 500 mg/dL Abnormal Negative [facility] Comment on above: Performed By: #### 2 132-9, 4086-5, CBCA, LIVR, 2345-7, 79258-4 #### [facility] ([id number]) [address] [facility], [address] [place] [address] #### 15150-2 #### [facility] ([id number]) [address] [place] [address] 78057 KETONES FERNANDO Negative Normal Negative [facility] Comment on above: Performed By: #### 2 132-9, 4086-5, CBCA, LIVR, 2345-7, 85590-6 #### [facility] ([id number]) [address] [facility], [address] [place] [address] #### 32313-5 #### [facility] ([id number]) [address] [place] [address] 17812 LEUKOCYTE ESTERASE FERNANDO Negative Normal Negative [facility] Comment on above: Performed By: #### 2 132-9, 4086-5, CBCA, LIVR, 2345-7, 20310-9 #### [facility] ([id number]) [address] [facility], [address] [place] [address] #### 00874-0 #### [facility] ([id number]) [address] [place] [address] 04430 NITRITE FERNANDO Negative Normal Negative [facility] Comment on above: Performed By: #### 2 132-9, 4086-5, CBCA, LIVR, 2345-7, 28279-6 #### [facility] ([id number]) [address] [facility], [address] [place] [address] #### 19193-0 #### [facility] ([id number]) [address] [place] [address] 52548 PH FERNANDO 6.5 Normal 5.0, 6.0, 6.5, 7.0, 7.5, 8.0, 8.5, 5.5 [facility] Comment on above: Performed By: #### 2 132-9, 4086-5, CBCA, LIVR, 2345-7, 41801-3 #### [facility] ([id number]) [address] [place] [address], [address] [place] [address] #### 80752-9 #### [facility] ([id number]) [address] [place] [address] 72282 PROTEIN FERNANDO Negative Normal Negative [facility] Comment on above: Performed By: #### 2 132-9, 4086-5, CBCA, LIVR, 234-7, 00115-5 #### [facility] ([id number]) [address] [place] [address], [address] [place] [address] #### 48673-6 #### [facility] ([id number]) [address] [place] [address] 56185 SPECIFIC GRAVITY FERNANDO 1.010 Normal 1.010, 1.015, 1.020, 1.025 [facility] Comment on above: Performed By: #### 2 132-9, 4086-5, CBCA, LIVR, 2345-7, 51944-4 #### [facility] ([id number]) [address] [place] [address], [address] [place] [address] #### 47070-6 #### [facility] ([id number]) [address] [place] [address] 97258 UROBILINOGEN FERNANDO 0.2 E.U./dL Normal [facility] Comment on above: Performed By: #### 2 132-9, 4086-5, CBCA, LIVR, 2345-7, 62275-3 #### [facility] ([id number]) [address] [place] [address], [address] [place] [address] #### 19580-1 #### [facility] ([id number]) [address] [place] [address] 82340 BILIRUBIN FERNANDO Negative Normal Negative [facility] Comment on above: Performed By: #### 2 132-9, 4086-5, CBCA, LIVR, 2345-7, 16549-7 #### [facility] ([id number]) [address] [place] [address], [address] [place] [address] #### 55839-8 #### [facility] ([id number]) [address] [place] [address] 69332 BLOOD/HGB FERNANDO Negative Normal Negative [facility] Comment on above: Performed By: #### 2 132-9, 4086-5, CBCA, LIVR, 2344-7, 57897-7 #### [facility] ([id number]) [address] [place] [address], [address] [place] [address] #### 16523-4 #### [facility] ([id number]) [address] [place] [address]809 GLUCOSE FERNANDO 500 mg/dL Abnormal Negative [facility] Comment on above: Performed By: #### 2 132-9, 4086-5, CBCA, LIVR, 234-7, 49666-5 #### [facility] ([id number]) [address] [place] [address], [address] [place] [address] #### 16053-3 #### [facility] ([id number]) [address] [place] [address]6767 KETONES FERNANDO Negative Normal Negative [facility] Comment on above: Performed By: #### 2 132-9, 4086-5, CBCA, LIVR, 2345-7, 73284-4 #### [facility] ([id number]) [address] [place] [address], [address] [place] [address] #### 91176-4 #### [facility] ([id number]) [address] [place] [address] 48186 LEUKOCYTE ESTERASE FERNANDO Negative Normal Negative [facility] Comment on above: Performed By: #### 2 132-9, 4086-5, CBCA, LIVR, 2345-7, 69597-2 #### [facility] ([id number]) [address] [facility], [address] [place] [address] #### 35694-7 #### [facility] ([id number]) [address] [place] [address]24[address] NITRITE FERNANDO Negative Normal Negative [facility] Comment on above: Performed By: #### 2 132-9, 4086-5, CBCA, LIVR, 234-7, 44261-4 #### [facility] ([id number]) [facility], [address] [place] [address] #### 96377-2 #### [facility] ([id number]) [address] [place] [address] PH FERNANDO 7.0 Normal 5.0, 6.0, 6.5, 7.0, 7.5, 8.0, 8.5, 5.5 [facility] Comment on above: Performed By: #### 2 132-9, 4086-5, CBCA, LIVR, 2345-7, 95575-0 #### [facility] ([id number]) [address] [facility], [address] [place] [address] #### 51491-8 #### [facility] ([id number]) [address] [place] [address] PROTEIN FERNANDO Negative Normal Negative [facility] Comment on above: Performed By: #### 2 132-9, 4086-5, CBCA, LIVR, 2345-7, 47936-3 #### [facility] ([id number]) [address], [address] [place] [address] #### 46817-9 #### [facility] ([id number]) [address] [place] [address] SPECIFIC GRAVITY FERNANDO <=1.005 Abnormal 1.010, 1.015, 1.020, 1.025 [facility] Comment on above: Performed By: #### 2 132-9, 4086-5, CBCA, LIVR, 2345-7, 81550-4 #### [facility] ([id number]) [address], [address] [place] [address] #### 88204-4 #### [facility] ([id number]) [address] [place] [address] 09926 UROBILINOGEN FERNANDO 0.2 E.U./dL Normal [facility] Comment on above: Performed By: #### 2 132-9, 4086-5, CBCA, LIVR, 2345-7, 58338-4 #### [facility] ([id number]) [address], [address] [place] [address] #### 11424-1 #### [facility] ([id number]) [address] [place] [address] 37438 SALICYLATE LEVELon 5 SALICYLATE <^4.0 Normal 2.0-25.0 [facility] Comment on above: Order Comment: Refer ence ranges are for therapeutic limits. Performed By: #### 2 132-9, 4086-5, CBCA, LIVR, 2345-7, 36461-6 #### [facility] ([id number]) [address], [address] [place] [address] #### 91198-8 #### [facility] ([id number]) [address] [place] [address] [place] [address] POCT Hemoglobin A1con 2024 HbA1c (Bld) [Mass fraction] 6.6 % 4 - 7 % [facility] APTTon 12-31-2024 aPTT Coag (Bld) [Time] 28 s Normal 26-37 [facility] Comment on above: Performed By: #### 2 132-9, 4086-5, CBCA, LIVR, 2345-7, 18627-4 #### [facility] ([id number]) [address] [facility], [address] [place] [address] #### 57219-2 #### [facility] ([id number]) [address] [place] [address]8311 B-TYPE NATRIURETIC PEPTIDEon 12-31-2024 Natriuretic peptide B (Bld) [Mass/Vol] 56 pg/mL Normal <=100 [facility] Comment on above: Performed By: #### 2 132-9, 4086-5, CBCA, LIVR, 2345-7, 20011-2 #### [facility] ([id number]) [address] [facility], [address] [place] [address] #### 77444-1 #### [facility] ([id number]) [address] [place] [address] 29152 BASIC METABOLIC PANELon 12-04 Anion gap [Moles/Vol] 10 mmol/L Normal 5-15 [facility] Comment on above: Performed By: #### 2 132-9, 4086-5, CBCA, LIVR, 2345-7, 11804-2 #### [facility] ([id number]) [address] [facility], [address] [place] [address] #### 64750-2 #### [facility] ([id number]) [address] [place] [address] 88867 Calcium [Mass/Vol] 9.4 mg/dL Normal 8.5-10.5 [facility] Comment on above: Performed By: #### 2 132-9, 4086-5, CBCA, LIVR, 2345-7, 65640-3 #### [facility] ([id number]) [address], [address] [place] [address] #### 22825-5 #### [facility] ([id number]) [address] [place] [address] 71617 Chloride [Moles/Vol] 106 mmol/L Normal 98-109 [facility] Comment on above: Performed By: #### 2 132-9, 4086-5, CBCA, LIVR, 2344-7, 12255-9 #### [facility] ([id number]) [address], [address] [place] [address] #### 28223-4 #### [facility] ([id number]) [address] [place] [address] 39836 CO2 [Moles/Vol] 23 mmol/L Normal 22-32 [facility] Comment on above: Performed By: #### 2 132-9, 4086-5, CBCA, LIVR, 2345-03, 02707-4 #### [facility] ([id number]) [address], [address] [place] [address] #### 83972-4 #### [facility] ([id number]) [address] [place] [address]5037 Creatinine [Mass/Vol] 0.98 mg/dL Normal 0.70-1.20 [facility] Comment on above: Result Comment: METH OD TRACEABLE TO IDMS STANDARD Performed By: #### 2 132-9, 4086-5, CBCA, LIVR, 2345-7, 11922-8 #### [facility] ([id number]) [address], [address] [place] [address] #### 04607-3 #### [facility] ([id number]) [address] [place] [address]90 GFR/1.73 sq M.predicted among non-blacks MDRD (S/P/Bld) [Vol rate/Area] 85 mL/min/{1.73_m2} Normal >=60 [facility] Comment on above: Result Comment: eGFR not reported due to non-numeric value for Creatinine. Reported eGFR is based on the CKD-EPI 2020 equation that does not use a race coefficient. Performed By: #### 2 132-9, 4086-5, CBCA, LIVR, 2345-7, 77011-9 #### [facility] ([id number]) [address] [facility], [address] [place] [address] #### 81314-1 #### [facility] ([id number]) [address] [place] [address] 96338 Glucose [Mass/Vol] 118 mg/dL High 65-99 [facility] Comment on above: Performed By: #### 2 132-9, 4086-5, CBCA, LIVR, 2345-7, 14144-9 #### [facility] ([id number]) [address] [facility], [address] [place] [address] #### 22375-3 #### [facility] ([id number]) [address] [place] [address] 37317 Potassium [Moles/Vol] 3.9 mmol/L Normal 3.5-5.0 [facility] Comment on above: Performed By: #### 2 132-9, 4086-5, CBCA, LIVR, 2345-7, 22185-7 #### [facility] ([id number]) [address] [facility], [address] [place] [address] #### 13814-9 #### [facility] ([id number]) [address] [place] [address] 67688 Sodium [Moles/Vol] 139 mmol/L Normal 134-146 [facility] Comment on above: Performed By: #### 2 132-9, 4086-5, CBCA, LIVR, 2345-7, 49713-9 #### [facility] ([id number]) [address] [facility], [address] [place] [address] #### 73931-7 #### [facility] ([id number]) [address] [place] [address] 11327 Urea nitrogen [Mass/Vol] 28 mg/dL High 5-27 [facility] Comment on above: Performed By: #### 2 132-9, 4086-5, CBCA, LIVR, 234-7, 25602-6 #### [facility] ([id number]) [address] [address] #### 22709-0 #### [facility] ([id number]) [address] [place] [address] 80687 CBC WITH AUTO DIFFERENTIALon 12-31-2024 BASOPHILS ABSOLUTE COUNT (10*3/UL) BY AUTOMATED COUNT 0.0 10*3/uL Normal [facility] Comment on above: Performed By: #### 2 132-9, 4086-5, CBCA, LIVR, 234-7, 61041-3 #### [facility] ([id number]) [address] [facility], [address] [place] [address] #### 94511-2 #### [facility] ([id number]) [address] [place] [address] 67387 BASOPHILS RELATIVE PERCENT BY AUTOMATED COUNT 0.4 % Normal [facility] Comment on above: Performed By: #### 2 132-9, 4086-5, CBCA, LIVR, 2345-7, 48776-5 #### [facility] ([id number]) [address] [place] [address], [address] [place] [address] #### 51046-3 #### [facility] ([id number]) [address] [place] [address] 50757 CELLAVISION DIFFERENTIAL TYPE AUTOMATED DIFFERENTIAL Normal [facility] Comment on above: Performed By: #### 2 132-9, 4086-5, CBCA, LIVR, 2344-7, 40471-4 #### [facility] ([id number]) [address] [place] [address], [address] [place] [address] #### 18204-4 #### [facility] ([id number]) [address] [place] [address] 91946 Eosinophils (Bld) [#/Vol] 0.2 10*3/uL Normal [facility] Comment on above: Performed By: #### 2 132-9, 6-5, CBCA, LIVR, 7, 77942-8 #### [facility] ([id number]) [address] [place] [address], [facility] [address] [place] [address] #### 69035-8 #### [facility] ([id number]) [address] [place] [address] 33342 EOSINOPHILS RELATIVE PERCENT BY AUTOMATED COUNT 2.0 % Normal [facility] Comment on above: Performed By: #### 2 132-9, 6-5, CBCA, LIVR, 7, 66969-6 #### [facility] ([id number]) [address] [place] [address], [address] [place] [address] #### 08137-7 #### [facility] ([id number]) [address] [place] [address] 07194 Erythrocyte distribution width (RBC) [Ratio] 17.0 % High 11.5-15 [facility] Comment on above: Performed By: #### 2 132-9, 4086-5, CBCA, LIVR, 2345-7, 72879-6 #### [facility] ([id number]) [address] [facility], [address] [place] [address] #### 17333-6 #### [facility] ([id number]) [address] [place] [address] 16467 Hematocrit (Bld) [Volume fraction] 42.4 % Normal 39-50 [facility] Comment on above: Performed By: #### 2 132-9, 4086-5, CBCA, LIVR, 2345-7, 79096-7 #### [facility] ([id number]) [address] [facility], [address] [place] [address] #### 12770-2 #### [facility] ([id number]) [address] [place] [address] 59857 Hemoglobin (Bld) [Mass/Vol] 14.6 g/dL Normal 13-17 [facility] Comment on above: Performed By: #### 2 132-9, 4086-5, CBCA, LIVR, 2345-7, 01042-6 #### [facility] ([id number]) [address] [facility], [address] [place] [address] #### 97711-8 #### [facility] ([id number]) [address] [place] [address] 40945 LYMPHOCYTES ABSOLUTE COUNT (10*3/UL) BY AUTOMATED COUNT 1.5 10*3/uL Normal [facility] Comment on above: Performed By: #### 2 132-9, 4086-5, CBCA, LIVR, 2345-7, 95993-6 #### [facility] ([id number]) [address] [facility], [address] [place] [address] #### 75013-6 #### [facility] ([id number]) [address] [place] [address] 42428 LYMPHOCYTES RELATIVE PERCENT BY AUTOMATED COUNT 17.1 % Normal [facility] Comment on above: Performed By: #### 2 132-9, 4086-5, CBCA, LIVR, 2344-7, 32019-0 #### [facility] ([id number]) [address] [facility], [address] [place] [address] #### 22159-5 #### [facility] ([id number]) [address] [place] [address] 25070 MCH (RBC) [Entitic mass] 30.7 pg Normal 27-34 [facility] Comment on above: Performed By: #### 2 132-9, 6-5, CBCA, LIVR, 2345-03, 37384-9 #### [facility] ([id number]) [address] [facility], [place] [address] #### 40882-1 #### [facility] ([id number]) [address] [place] [address] 30099 MCHC (RBC) [Mass/Vol] 34.4 g/dL Normal 32-36 [facility] Comment on above: Performed By: #### 2 132-9, 6-5, CBCA, LIVR, 2345-03, 96208-6 #### [facility] ([id number]) [address] [facility], [address] [place] [address] #### 50482-9 #### [facility] ([id number]) [address] [place] [address] 51305 MCV (RBC) [Entitic vol] 89 fL Normal 80-100 [facility] Comment on above: Performed By: #### 2 132-9, 4086-5, CBCA, LIVR, 234-7, 97971-2 #### [facility] ([id number]) [address] [facility] [address] [place] [address] #### 94476-1 #### [facility] ([id number]) [address] [place] [address] 77283 MONOCYTES ABSOLUTE COUNT (10*3/UL) BY AUTOMATED COUNT 0.7 10*3/uL Normal [facility] Comment on above: Performed By: #### 2 132-9, 4086-5, CBCA, LIVR, 2345-7, 72679-8 #### [facility] ([id number]) [address] [place] [address], [address] [address] #### 11404-3 #### [facility] ([id number]) [address] [place] [address] 98959 MONOCYTES RELATIVE PERCENT BY AUTOMATED COUNT 8.1 % Normal [facility] Comment on above: Performed By: #### 2 132-9, 4086-5, CBCA, LIVR, 234-7, 32450-3 #### [facility] ([id number]) [address] [place] [address], [address] [address] #### 45077-3 #### [facility] ([id number]) [address] [place] [address] 23843 NEUTROPHILS ABSOLUTE COUNT BY AUTOMATED COUNT 6.4 10*3/uL Normal [facility] Comment on above: Performed By: #### 2 132-9, 4086-5, CBCA, LIVR, 234-7, 82969-8 #### [facility] ([id number]) [address] [place] [address], [address] [place] [address] #### 04015-6 #### [facility] ([id number]) [address] [place] [address] 10189 NEUTROPHILS RELATIVE PERCENT BY AUTOMATED COUNT 72.4 % Normal [facility] Comment on above: Performed By: #### 2 132-9, 4086-5, CBCA, LIVR, 2345-7, 68993-0 #### [facility] ([id number]) [address], [address] [place] [address] #### 43687-9 #### [facility] ([id number]) [address] [place] [address] 71405 Platelet mean volume (Bld) [Entitic vol] 7.3 fL Normal 7-12 [facility] Comment on above: Performed By: #### 2 132-9, 4086-5, CBCA, LIVR, 2345-7, 31598-6 #### [facility] ([id number]) [address], [address] [place] [address] #### 54773-7 #### [facility] ([id number]) [address] [place] [address] 57811 Platelets (Bld) [#/Vol] 253 10*3/uL Normal 150-450 [facility] Comment on above: Performed By: #### 2 132-9, 4086-5, CBCA, LIVR, 2345-7, 68649-0 #### [facility] ([id number]) [address], [address] [place] [address] #### 11969-6 #### [facility] ([id number]) [address] [place] [address] 83841 RBC COUNT 4.74 X10E12/L Normal 4.1-5.7 [facility] Comment on above: Performed By: #### 2 132-9, 4086-5, CBCA, LIVR, 2345-7, 32449-2 #### [facility] ([id number]) [address], [address] [place] [address] #### 40704-1 #### [facility] ([id number]) [address] [place] [address] 49668 WBC (Bld) [#/Vol] 8.9 10*3/uL Normal 4-11 [facility] Comment on above: Performed By: #### 2 132-9, 4086-5, CBCA, LIVR, 2345-7, 55329-1 #### [facility] ([id number]) [address] [facility], [address] [place] [address] #### 75886-6 #### [facility] ([id number]) [address] [place] [address], [place] [address] [place] [address]RAIN [place] CONT[place] CT BRAIN WO CONT CT BRAIN WO CONT CLINICAL INFORMATION: fall, head injury, elderly TECHNIQUE: [...] Reilly Hassan MD on 12/31/2024 1:14 PM Normal [facility] CT CERVICAL SPINE WO CONTon 12-31-2024 CT CERVICAL SPINE WO CONT CT CERVICAL SPINE WO CONT CLINICAL INFORMATION: fall, elderly . Trauma. TECHNIQUE: [...] Reilly Hassan MD on 12/31/2024 1:25 PM Normal [facility] CT FACIAL BONES WO CONTon CT FACIAL BONES WO CONT CT FACIAL BONES WO CONT EXAM: CT FACIAL BONES WO CONT INDICATION: [...] Bassem Paz MD on 12/31/2024 1:41 PM Normal [facility] ETHANOLon 12-31-2024 Ethanol [Mass/Vol] mg/dL Normal <=0.080 [facility] Comment on above: Result Comment: This report is intended for use in clinical monitoring or management of patients. Performed By: #### 2 132-9, 4086-5, CBCA, LIVR, 2345-7, 52383-6 #### [facility] ([id number]) [address] [facility], [address] [place] [address] #### 36011-3 #### [facility] ([id number]) [address] [place] [address], [place] [address] MAGNESIUMon 12-31-2024 Magnesium [Mass/Vol] 2.1 mg/dL Normal 1.8-2.6 [facility] Comment on above: Performed By: #### 2 132-9, 4086-5, CBCA, LIVR, 2345-7, 31767-6 #### [facility] ([id number]) [address] [place] [address] #### 15767-6 #### [facility] ([id number]) [address] [place] [address]58[address] POCT NURSING URINE MACROSCOP IC UAon 12-31-2024 BILIRUBIN FERNANDO Negative Normal Negative [facility] Comment on above: Performed By: #### 2 132-9, 4086-5, CBCA, LIVR, 2345-7, 28663-5 #### [facility] ([id number]) [address] [place] [address], [address] [place] [address] #### 61840-9 #### [facility] ([id number]) [address] [place] [address] 88087 BLOOD/HGB FERNANDO Negative Normal Negative [facility] Comment on above: Performed By: #### 2 132-9, 6-5, CBCA, LIVR, 7, 64984-1 #### [facility] ([id number]) [address] [place] [address], [address] [place] [address] #### 23686-6 #### [facility] ([id number]) [address] [place] [address] 86845 GLUCOSE FERNANDO >=1000 mg/dL Abnormal Negative [facility] Comment on above: Performed By: #### 2 132-9, 6-5, CBCA, LIVR, 7, 51274-6 #### [facility] ([id number]) [address] [place] [address], [address] [place] [address] #### 41717-1 #### [facility] ([id number]) [address] [place] [address] 28408 KETONES FERNANDO Negative Normal Negative [facility] Comment on above: Performed By: #### 2 132-9, 4086-5, CBCA, LIVR, 2345-7, 98772-3 #### [facility] ([id number]) [address] [facility], [address] [place] [address] #### 72206-4 #### [facility] ([id number]) [address] [place] [address] 90632 LEUKOCYTE ESTERASE FERNANDO Negative Normal Negative [facility] Comment on above: Performed By: #### 2 132-9, 4086-5, CBCA, LIVR, 2345-7, 49697-5 #### [facility] ([id number]) [address] [facility], [address] [place] [address] #### 42810-3 #### [facility] ([id number]) [address] [place] [address] 99982 NITRITE FERNANDO Negative Normal Negative [facility] Comment on above: Performed By: #### 2 132-9, 4086-5, CBCA, LIVR, 2345-7, 95152-2 #### [facility] ([id number]) [facility], [address] [place] [address] #### 73262-9 #### [facility] ([id number]) [address] [place] [address] 24022 PH FERNANDO 6.0 Normal 5.0, 6.0, 6.5, 7.0, 7.5, 8.0, 8.5, 5.5 [facility] Comment on above: Performed By: #### 2 132-9, 4086-5, CBCA, LIVR, 2345-7, 71013-3 #### [facility] ([id number]) [address] [place] [address], [address] [place] [address] #### 53991-2 #### [facility] ([id number]) [address] [place] [address] 31443 PROTEIN FERNANDO Negative Normal Negative [facility] Comment on above: Performed By: #### 2 132-9, 4086-5, CBCA, LIVR, 2345-7, 49940-9 #### [facility] ([id number]) [address], [address] [place] [address] #### 32113-5 #### [facility] ([id number]) [address] [place] [address] 54399 SPECIFIC GRAVITY FERNANDO 1.015 Normal 1.010, 1.015, 1.020, 1.025 [facility] Comment on above: Performed By: #### 2 132-9, 4086-5, CBCA, LIVR, 234-7, 13511-0 #### [facility] ([id number]) [address] [facility], [address] [place] [address] #### 10744-6 #### [facility] ([id number]) [address] [place] [address] 70460 UROBILINOGEN FERNANDO 0.2 E.U./dL Normal 0.2 E.U./dL, 1.0 E.U./dL [facility] Comment on above: Performed By: #### 2 132-9, 4086-5, CBCA, LIVR, 234-7, 91144-0 #### [facility] ([id number]) [address] [facility], [address] [place] [address] #### 68571-2 #### [facility] ([id number]) [address] [place] [address] 11031 PROTIME AND INRon 12-31-2024 INR 1.0 Normal 0.9-1.2 [facility] Comment on above: Performed By: #### 2 132-9, 4086-5, CBCA, LIVR, 2345-7, 18582-7 #### [facility] ([id number]) [address], [address] [place] [address] #### 02703-2 #### [facility] ([id number]) [address] [place] [address] 43428 PT Coag (PPP) [Time] 11.7 s Normal 9.8-13.2 [facility] Comment on above: Performed By: #### 2 132-9, 4086-5, CBCA, LIVR, 2345-7, 26818-6 #### [facility] ([id number]) [address] [facility], [address] [place] [address] #### 35304-4 #### [facility] ([id number]) [address] [place] [address] 06419 TROP I, HIGH SENSITIVITY 1 H OURon 12-31-2024 TROPONIN I, HIGH SENSITIVITY 12 ng/L Normal <21 [facility] Comment on above: Performed By: #### 2 132-9, 4086-5, CBCA, LIVR, 2345-7, 58661-7 #### [facility] ([id number]) [address] [facility], [address] [place] [address] #### 64697-1 #### [facility] ([id number]) [address] [place] [address] 20550 TROPONIN I, HIGH SENSITIVITY 0 HOURon 12-31-2024 TROPONIN I, HIGH SENSITIVITY 10 ng/L Normal <21 [facility] Comment on above: Performed By: #### 2 132-9, 4086-5, CBCA, LIVR, 2345-7, 83405-4 #### [facility] ([id number]) [address] [facility], [address] [place] [address] #### 09607-5 #### [facility] ([id number]) [address] [place] [address] 01604 Measure post void residualon 12-10-2024 Volume 34 mL [facility] POCT Urinalysis Auto, W/O Mi croscopyon 12-10-2024 External Poct Urine Blood Negative [facility] External Poct Urine Glucose 3+ [facility] External Poct Urine Ketones Negative [facility] External Poct Urine Leukocyte Esterase Negative [facility] External Poct Urine Nitrite Negative [facility] External Poct Urine Ph 5.5 [facility] External Poct Urine Protein Negative [facility] Prostate specific Ag [Mass/V ol]on 12-10-2024 PROSTATIC SPEC ANT 1.18 ng/mL Normal 0.00-4.00 [facility] Comment on above: Result Comment: The method used for this test is Roseline Nellie DXI chemiluminescent immunoassay. Values obtained by different assay methods cannot be used interchangeably. Performed By: #### 2 132-9, 4086-5, CBCA, LIVR, 2345-7, 31422-0 #### [facility] ([id number]) [address] [place] [address], [address] [place] [address] #### 52012-2 #### [facility] ([id number]) [address] [place] [address], [place] [address] Ambulatory referral to Janina wilson Educationon 11-06-2024 [facility] XR Shoulder - left 2 Viewson 11-01-2024 Imaging Result: Right Shoulder AP and Scap Y No acute fracture or dislocation Bone Structures clavicle and scapula and humeral head appear normal alignment. Prominent degenerative changes with AC joint hypertrophy. Glenohumeral joint space is narrowed with subchondral cystic changes and sclerosis. Inferior reynolds formation and humeral head elevation concerning for cuff arthropathy Soft tissues and limited visualized lung garcia unremarkable, Glucose monitoring device in soft tissue. Impression: Moderate to severe glenohumeral arthritis left shoulder, concern for rotator cuff arthropathy [facility] - right 2 Viewso n 11-01-2024 Imaging Result: Right Shoulder AP and Scap Y No acute fracture or dislocation Bone Structures clavicle and scapula and humeral head appear normal alignment Glenohumeral joint space maintained with mild degenerative changes Remote rib fractures noted with callus present. Moderate ac joint Soft tissues and limited visualized lung garcia unremarkable Impression: Mild degenerative changes right shoulder with no acute bony process. [facility] No Panel Informationon 10-31 HECTOR Villaseñor 11/01/2024 8:42 AM M Inj/Asp: L acromioclavicular on 10/31/2024 10:56 AM Indications: pain Details: 21 G needle, anterolateral approach Medications: 0.5 mL bupivacaine PF 0.5 %; 20 mg methylPREDNISolone acetate 40 MG/ML Outcome: tolerated well, no immediate complications -Discussed risks and benfits of AC Joint injection. Patient requesting injection. Point of maximal tenderness located on palpation over AC JOINT. Skin Cleansed with alcohol swab. Utilizing aseptic technique patient given injected into the AC joint without complication. Patient tolerated this well. Post injection care instructions discussed. Procedure, treatment alternatives, risks and benefits explained, specific risks discussed. Consent was given by the patient. Patient was prepped and draped in the usual sterile fashion. [facility] [employer] [employer] XR Shoulder - left 2 Viewson 10-31-2024 Radiology Study observation (narrative) [facility] - [facility] 2 Viewso n 10-31-2024 Radiology Study observation (narrative) [facility] [employer] MICROALBUMIN - ALBUMIN:CREAT ININE URINE RATIOon 10-17-2024 ALB/CREAT RATIO NOT CALCULATED Normal 0.0-30.0 [facility] Comment on above: Result Comment: Result for Albumin/Creatinine Ratio cannot be reliably calculated because urine albumin and or urine creatinine is below the detection limit of the assay. Performed By: #### M ALBU #### [facility] ([id number]) [address], [address] [place] [address] Albumin DL <= 20 mg/L (U) [Mass/Vol] mg/dL Normal 0.0-1.9 [facility] Comment on above: Performed By: #### M ALBU #### [facility] ([id number]) [address], [address] [place] [address] URINE CREAT 49.87 mg/dL Normal [facility] Comment on above: Performed By: #### M ALBU #### [facility] ([id number]) [address] [place] [address] POCT Hemoglobin A1con 2024 HbA1c (Bld) [Mass fraction] 7.5 % Abnormal 4 - 7 % [facility] Interpretation and review of laboratory results Abnormal [facility] BASIC METABOLIC PANLon 10-03 Anion gap [Moles/Vol] 11 mmol/L Normal 5-15 [facility] Comment on above: Performed By: #### B MP #### [facility] ([id number]) [address] [place] [address] Calcium [Mass/Vol] 9.4 mg/dL Normal 8.5-10.5 [facility] Comment on above: Performed By: #### B MP #### [facility] ([id number]) [address] [place] [address] Chloride [Moles/Vol] 105 mmol/L Normal 98-109 [facility] Comment on above: Performed By: #### B MP #### [facility] ([id number]) [address] [place] [address] CO2 [Moles/Vol] 25 mmol/L Normal 22-32 [facility] Comment on above: Performed By: #### B MP #### [facility] ([id number]) [address] [place] [address] Creatinine [Mass/Vol] 1.04 mg/dL Normal 0.60-1.30 [facility] Comment on above: Result Comment: METH OD TRACEABLE TO IDMS STANDARD Performed By: #### B MP #### [facility] ([id number]) [address] [place] [address] GFR/1.73 sq M.predicted among non-blacks MDRD (S/P/Bld) [Vol rate/Area] 79 mL/min/{1.73_m2} Normal >59 [facility] Comment on above: Result Comment: Reported eGFR is based on the CKD-EPI 2020 equation that does not use a race coefficient. Performed By: #### B MP #### [facility] ([id number]) [address], [address] [place] [address] Glucose [Mass/Vol] 142 mg/dL High 65-99 [facility] Comment on above: Performed By: #### B MP #### [facility] ([id number]) [address], [address] [place] [address] Potassium [Moles/Vol] 4.2 mmol/L Normal 3.5-5.0 [facility] Comment on above: Performed By: #### B MP #### [facility] ([id number]) [address], [address] [place] [address] Sodium [Moles/Vol] 141 mmol/L Normal 134-146 [facility] Comment on above: Performed By: #### B MP #### [facility] ([id number]) [address], [address] [place] [address] Urea nitrogen [Mass/Vol] 27 mg/dL Normal 5-27 [facility] Comment on above: Performed By: #### B MP #### [facility] ([id number]) [address], [address] [place] [address] XR Hip - left 3 Viewson 09-04 Imaging Result: Ap and Lateral left hip No acute fracture or dislocation Symmetric superior joint space narrowing and subchondral sclerosis of acetabulum Slight prominence to femoral head for possible cam deformity/ arthritic change. 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 [facility] Study observation (narrative) [employer] XR Knee - right 1 or 2 Views on 09-12-2024 Imaging Result: AP and Lateral of right knee: Surgical position and alignment of prosthetic components without evidence of loosening or wear to femora, tibial or patellar components, The alignment appears to be anatomic. No evidence of accelerated or asymmetric wear to tibial tray or patella button. No evidence of fracture or dislocation. + prepatellar soft tissue swelling Impression: Unremarkable right total knee arthroplasty [facility] (narrative) [facility] AMMONIAon 09-02-2024 Ammonia (P) [Moles/Vol] 11 umol/L Normal 11-35 [facility] Comment on above: Performed By: #### 2 132-9, 4086-5, CBCA, LIVR, 2345-7, 51025-1 #### [facility] ([id number]) [address] [facility] [facility], [address] [place] [address] #### 84243-1 #### [facility] ([id number]) [address] [place] [address] CBC AND AUTO DIFFon 09-02-20 24 ABSOLUTE BASOPHIL 0.0 X10E9/L Normal 0.0-0.2 [facility] Comment on above: Performed By: #### 2 132-9, 4086-5, CBCA, LIVR, 2345-7, 55460-1 #### [facility] ([id number]) [address] [place] [address], [address] [place] [address] #### 16950-9 #### [facility] ([id number]) [address] [place] [address] ABSOLUTE NEUTROPHIL 4.4 X10E9/L Normal 1.5-6.6 [facility] Comment on above: Performed By: #### 2 132-9, 4086-5, CBCA, LIVR, 2345-7, 26991-3 #### [facility] ([id number]) [address] [place] [address], [address] [place] [address] #### 42477-0 #### [facility] ([id number]) [address] [place] [address] Basophils/100 WBC (Bld) 0.4 % Normal [facility] Comment on above: Performed By: #### 2 132-9, 4086-5, CBCA, LIVR, 2345-7, 16715-7 #### [facility] ([id number]) [address], [address] [place] [address] #### 66042-3 #### [facility] ([id number]) [address] [place] [address] Eosinophils (Bld) [#/Vol] 0.3 10*3/uL Normal 0.0-0.4 [facility] Comment on above: Performed By: #### 2 132-9, 4086-5, CBCA, LIVR, 2344-7, 46608-4 #### [facility] ([id number]) [address] [facility], [address] [place] [address] #### 71053-4 #### [facility] ([id number]) [address] [place] [address] Eosinophils/100 WBC (Bld) 3.7 % Normal [facility] Comment on above: Performed By: #### 2 132-9, 4086-5, CBCA, LIVR, 2344-, 93210-8 #### [facility] ([id number]) [address] [facility], [address] [place] [address] #### 68577-1 #### [facility] ([id number]) [address] [place] [address] Erythrocyte distribution width (RBC) [Ratio] 15.3 % High 11.5-15.0 [facility] Comment on above: Performed By: #### 2 132-9, 4086-5, CBCA, LIVR, 234-7, 47185-5 #### [facility] ([id number]) [address], [address] [place] [address] #### 04186-5 #### [facility] ([id number]) [address] [place] [address] Hematocrit (Bld) [Volume fraction] 40.0 % Normal 39-49 [facility] Comment on above: Performed By: #### 2 132-9, 4086-5, CBCA, LIVR, 2345-7, 98660-2 #### [facility] ([id number]) [address], [address] [place] [address] #### 61573-1 #### [facility] ([id number]) [address] [place] [address] Hemoglobin (Bld) [Mass/Vol] 13.3 g/dL Normal 13.0-17.0 [facility] Comment on above: Performed By: #### 2 132-9, 4086-5, CBCA, LIVR, 234-7, 13176-8 #### [facility] ([id number]) [address] [facility], [address] [place] [address] #### 07864-1 #### [facility] ([id number]) [address] [place] [address] Lymphocytes (Bld) [#/Vol] 1.6 10*3/uL Normal 1.0-3.5 [facility] Comment on above: Performed By: #### 2 132-9, 4086-5, CBCA, LIVR, 2345-7, 34722-6 #### [facility] ([id number]) [address], [address] [place] [address] #### 18735-6 #### [facility] ([id number]) [address] [place] [address] Lymphocytes/100 WBC (Bld) 22.5 % Normal [facility] Comment on above: Performed By: #### 2 132-9, 4086-5, CBCA, LIVR, 2345-7, 27241-6 #### [facility] ([id number]) [address], [address] [place] [address] #### 38519-8 #### [facility] ([id number]) [address] [place] [address] MCH (RBC) [Entitic mass] 31.0 pg Normal 27-34 [facility] Comment on above: Performed By: #### 2 132-9, 4086-5, CBCA, LIVR, 2345-7, 69951-7 #### [facility] ([id number]) [address], [address] [place] [address] #### 62662-0 #### [facility] ([id number]) [address] [place] [address] MCHC (RBC) [Mass/Vol] 33.3 g/dL Normal 32-36 [facility] Comment on above: Performed By: #### 2 132-9, 4086-5, CBCA, LIVR, 2345-7, 13303-5 #### [facility] ([id number]) [address] [place] [address] #### 55898-7 #### [facility] ([id number]) [address] [place] [address]1117 MCV (RBC) [Entitic vol] 93 fL Normal 80-100 [facility] Comment on above: Performed By: #### 2 132-9, 4086-5, CBCA, LIVR, 2345-7, 17639-5 #### [facility] ([id number]) [address], [address] [place] [address] #### 41122-9 #### [facility] ([id number]) [address] [place] [address] Monocytes (Bld) [#/Vol] 0.9 10*3/uL Normal 0-0.9 [facility] Comment on above: Performed By: #### 2 132-9, 4086-5, CBCA, LIVR, 2345-7, 36684-2 #### [facility] ([id number]) [address] [facility], [address] [place] [address] #### 96204-3 #### [facility] ([id number]) [address] [place] [address]84[address] Monocytes/100 WBC (Bld) 13.1 % Normal [facility] Comment on above: Performed By: #### 2 132-9, 4086-5, CBCA, LIVR, 234-7, 92140-9 #### [facility] ([id number]) [address] [facility], [address] [place] [address] #### 55874-9 #### [facility] ([id number]) [address] [place] [address] 27966 Neutrophils/100 WBC (Bld) 60.3 % Normal [facility] Comment on above: Performed By: #### 2 132-9, 4086-5, CBCA, LIVR, 234-7, 48179-0 #### [facility] ([id number]) [address] [facility], [address] [place] [address] #### 08513-2 #### [facility] ([id number]) [address] [place] [address] Platelet mean volume (Bld) [Entitic vol] 7.7 fL Normal 7-12 [facility] Comment on above: Performed By: #### 2 132-9, 4086-5, CBCA, LIVR, 2345-7, 58499-5 #### [facility] ([id number]) [address] [facility], [address] [place] [address] #### 13994-7 #### [facility] ([id number]) [address] [place] [address]78[address] Platelets (Bld) [#/Vol] 273 10*3/uL Normal 150-450 [facility] Comment on above: Performed By: #### 2 132-9, 4086-5, CBCA, LIVR, 2345-7, 62361-8 #### [facility] ([id number]) [address] [facility], [address] [place] [address] #### 79651-8 #### [facility] ([id number]) [address] [place] [address] 93770 RBC COUNT 4.30 X10E12/L Normal 4.10-5.70 [facility] Comment on above: Performed By: #### 2 132-9, 4086-5, CBCA, LIVR, 2345-7, 09995-6 #### [facility] ([id number]) [address] [facility], [address] [place] [address] #### 95719-9 #### [facility] ([id number]) [address] [place] [address]697 WBC (Bld) [#/Vol] 7.3 10*3/uL Normal 4.0-11.0 [facility] Comment on above: Performed By: #### 2 132-9, 4086-5, CBCA, LIVR, 2345-7, 91459-8 #### [facility] ([id number]) [address] [facility], [address] [place] [address] #### 54234-6 #### [facility] ([id number]) [address] [place] [address]89 CK [Catalytic activity/Vol]o n 09-02-2024 CPK 58 U/L Normal 24-195 [facility] Comment on above: Performed By: #### 2 157-6 #### [facility] ([id number]) [address] [facility], [address] [place] [address] GLUCOSEon 09-02-2024 Glucose [Mass/Vol] 162 mg/dL High 65-99 [facility] Comment on above: Performed By: #### 2 132-9, 4086-5, CBCA, LIVR, 2345-7, 28866-8 #### [facility] ([id number]) [address] [facility], [address] [place] [address] #### 52381-2 #### [facility] ([id number]) [address] [place] [address] LIVER PANELon 09-02-2024 Albumin [Mass/Vol] 3.9 g/dL Normal 3.2-5.3 [facility] Comment on above: Performed By: #### 2 132-9, 4086-5, CBCA, LIVR, 234-7, 94421-8 #### [facility] ([id number]) [address] [place] [address], [address] [place] [address] #### 10673-7 #### [facility] ([id number]) [address] [place] [address]8552 ALP [Catalytic activity/Vol] 47 U/L Normal 39-130 [facility] Comment on above: Performed By: #### 2 132-9, 4086-5, CBCA, LIVR, 2345-7, 77556-7 #### [facility] ([id number]) [address] [facility], [address] [place] [address] #### 37090-8 #### [facility] ([id number]) [address] [place] [address] 41656 ALT [Catalytic activity/Vol] 17 U/L Normal 0-40 [facility] Comment on above: Performed By: #### 2 132-9, 4086-5, CBCA, LIVR, 2345-7, 59126-0 #### [facility] ([id number]) [address] [place] [address] #### 81678-7 #### [facility] ([id number]) [address] [place] [address] 62289 AST [Catalytic activity/Vol] 16 U/L Normal 0-41 [facility] Comment on above: Performed By: #### 2 132-9, 4086-5, CBCA, LIVR, 2345-7, 56793-3 #### [facility] ([id number]) [address] [facility], [address] [place] [address] #### 00016-4 #### [facility] ([id number]) [address] [place] [address] 67080 Bilirubin [Mass/Vol] 0.3 mg/dL Normal 0.3-1.2 [facility] Comment on above: Performed By: #### 2 132-9, 4086-5, CBCA, LIVR, 2345-7, 76753-8 #### [facility] ([id number]) [address] [facility], [address] [place] [address] #### 36180-8 #### [facility] ([id number]) [address] [place] [address]107 Bilirubin.direct [Mass/Vol] 0.0 mg/dL Normal 0.0-0.4 [facility] Comment on above: Performed By: #### 2 132-9, 4086-5, CBCA, LIVR, 2345-7, 08868-1 #### [facility] ([id number]) [address] [facility], [address] [place] [address] #### 32543-9 #### [facility] ([id number]) [address] [place] [address] 93238 Protein [Mass/Vol] 7.2 g/dL Normal 6.0-8.0 [facility] Comment on above: Performed By: #### 2 132-9, 4086-5, CBCA, LIVR, 2345-7, 39839-8 #### [facility] ([id number]) [address] [facility], [address] [place] [address] #### 18514-5 #### [facility] ([id number]) [address] [place] [address] Lipid 1996 panelon 4 Cholesterol [Mass/Vol] 137 mg/dL Low 150-200 [facility] Comment on above: Performed By: #### 2 132-9, 4086-5, CBCA, LIVR, 2345-7, 59913-5 #### [facility] ([id number]) [address] [facility], [address] [place] [address] #### 80761-7 #### [facility] ([id number]) [address] [place] [address] 22904 Cholesterol in HDL [Mass/Vol] 42 mg/dL Normal >39 [facility] Comment on above: Result Comment: HDL <40 mg/dL - High Risk HDL > or = 40mg/dL- Desirable HDL >60 mg/dL - Negative Risk Performed By: #### 2 132-9, 4086-5, CBCA, LIVR, 2345-7, 17221-5 #### [facility] ([id number]) [address] [facility], [address] [place] [address] #### 45924-3 #### [facility] ([id number]) [address] [place] [address] 75561 Cholesterol in LDL [Mass/Vol] 62 mg/dL Normal <130 [facility] Comment on above: Result Comment: LDL <100 mg/dL - Desirable LDL >160 mg/dL - High Risk Performed By: #### 2 132-9, 4086-5, CBCA, LIVR, 2345-7, 10622-6 #### [facility] ([id number]) [address] [place] [address], [address] [place] [address] #### 43050-2 #### [facility] ([id number]) [address] [place] [address] 02598 Cholesterol in VLDL [Mass/Vol] 33 mg/dL High 0-30 [facility] Comment on above: Performed By: #### 2 132-9, 4086-5, CBCA, LIVR, 7, 41001-1 #### [facility] ([id number]) [address] [place] [address], [address] [place] [address] #### 19929-1 #### [facility] ([id number]) [address] [place] [address] 61915 CHOLESTEROL:HDL 3.3 Normal 1.0-5.0 [facility] Comment on above: Performed By: #### 2 132-9, 4086-5, CBCA, LIVR, 7, 18558-1 #### [facility] ([id number]) [address] [place] [address], [address] [place] [address] #### 03484-3 #### [facility] ([id number]) [address] [place] [address] 74079 Triglyceride [Mass/Vol] 166 mg/dL High 27-150 [facility] Comment on above: Performed By: #### 2 132-9, 4086-5, CBCA, LIVR, 234-7, 54987-7 #### [facility] ([id number]) [address] [place] [address], [address] [place] [address] #### 46243-5 #### [facility] ([id number]) [address] [place] [address] 33144 VITAMIN B12on 09-02-2024 Cobalamin (Vitamin B12) [Mass/Vol] 601 pg/mL Normal 180-914 [facility] Comment on above: Performed By: #### 2 132-9, 4086-5, CBCA, LIVR, 2345-7, 25685-2 #### [facility] ([id number]) [address] [place] [address], [address] [place] [address] #### 07913-2 #### [facility] ([id number]) [address] [place] [address] 05621 Valproate [Mass/Vol]on 09-02 VALPROIC ACID 38 ug/mL Low 50-100 [facility] Comment on above: Performed By: #### 2 132-9, 4086-5, CBCA, LIVR, 2345-7, 40575-1 #### [facility] ([id number]) [address] [place] [address], [address] [place] [address] #### 26819-9 #### [facility] ([id number]) [address] [place] [address] 51121 Brain Natri. Peptideon 08-26 Natriuretic peptide B (Bld) [Mass/Vol] 186 pg/mL High 0-125 [facility] Comment on above: Performed By: #### C P, CDP, BNP, TROPI #### [facility] [address] [place] [address] Er Rn: Lula Melendez MD Brain Natriuretic Peptideon 08-26-2024 Natriuretic peptide B (Bld) [Mass/Vol] 186 pg/mL High 0 - 125 pg/mL [facility] CBC with Auto Differentialon 08-26-2024 Basophils (Bld) [#/Vol] 0.04 10*3/uL [facility] Basophils/100 WBC (Bld) 1 % 0 - 2 % [facility] Eosinophils (Bld) [#/Vol] 0.26 10*3/uL [facility] Eosinophils/100 WBC (Bld) 4 % 1 - 4 % [facility] Erythrocyte distribution width (RBC) [Ratio] 15.3 % High 11.8 - 14.4 % [facility] Hematocrit (Bld) [Volume fraction] 39.5 % Low 40.7 - 50.3 % [facility] Hemoglobin (Bld) [Mass/Vol] 12.8 g/dL Low 13.0 - 17.0 g/dL [facility] Immature granulocytes (Bld) [#/Vol] 0.06 10*3/uL [facility] Immature granulocytes/100 WBC (Bld) 1 % High 0 [facility] Interpretation and review of laboratory results Abnormal [facility] Lymphocytes/100 WBC (Bld) 21 % Low 24 - 43 % [facility] Lymphocytes/100 WBC (Bld) 1.59 % [facility] MCH (RBC) [Entitic mass] 30.7 pg 25.2 - 33.5 pg [facility] MCHC (RBC) [Mass/Vol] 32.4 g/dL 28.4 - 34.8 g/dL [facility] MCV (RBC) [Entitic vol] 94.7 fL 82.6 - 102.9 fL [facility] Monocytes/100 WBC (Bld) 13 % High 3 - 12 % [facility] Monocytes/100 WBC (Bld) 0.94 % [facility] Neutrophils/100 WBC (Bld) 60 % 36 - 65 % [facility] Nucleated RBC/100 WBC (Bld) [Ratio] 0.0 % 0.0 per 100 WBC [facility] Platelet mean volume (Bld) [Entitic vol] 9.3 fL 8.1 - 13.5 fL [facility] Platelets (Bld) [#/Vol] 231 10*3/uL [facility] RBC (Bld) [#/Vol] 4.17 10*6/uL Low 4.21 - 5.7 7 m/uL [facility] Segmented neutrophils/100 WBC (Bld) 4.56 % [facility] WBC other (Bld) [#/Vol] 7.5 [facility] CBC with Diffon 08-26-2024 Abs. Basophil 0.04 k/uL Normal 0.00-0.20 [facility] Comment on above: Performed By: #### C P, CDP, BNP, TROPI #### [address] [place], [place] [id number] Er Rn: Lula Melendez MD Abs.Imm.Granulocyt e 0.06 k/uL Normal 0.00-0.30 [facility] Comment on above: Performed By: #### C P, CDP, BNP, TROPI #### [address] [place], [place] [address] Er Rn: Lula Melendez MD Abs.Neutrophil (Seg) 4.56 k/uL Normal 1.50-8.10 [facility] Comment on above: Performed By: #### C P, CDP, BNP, TROPI #### [address] [place], [place] [address] Er Rn: Lula Melendez MD Basophils/100 WBC (Bld) 1 % Normal 0-2 [facility] Comment on above: Performed By: #### C P, CDP, BNP, TROPI #### [address] [place], [facility] Er Rn: Lula Melendez MD Eosinophils (Bld) [#/Vol] 0.26 10*3/uL Normal 0.00-0.44 [facility] Comment on above: Performed By: #### C P, CDP, BNP, TROPI #### [address] [place], [facility]83 Er Rn: Lula Melendez MD Eosinophils/100 WBC (Bld) 4 % Normal 1-4 [facility] Comment on above: Performed By: #### C P, CDP, BNP, TROPI #### [address] [place] [id number] Er Rn: Lula Melendez MD Erythrocyte distribution width (RBC) [Ratio] 15.3 % High 11.8-14.4 [facility] Comment on above: Performed By: #### C P, CDP, BNP, TROPI #### [address] [place] [address] Er Rn: Lula Melendez MD Hematocrit (Bld) [Volume fraction] 39.5 % Low 40.7-50.3 [facility] Comment on above: Performed By: #### C P, CDP, BNP, TROPI #### [address] [place], [place] [address] Er Rn: Lula Melendez MD Hemoglobin (Bld) [Mass/Vol] 12.8 g/dL Low 13.0-17.0 [facility] Comment on above: Performed By: #### C P, CDP, BNP, TROPI #### [address] [place] [address] Er Rn: Lula Melendez MD Immature granulocytes/100 WBC (Bld) 1 % High 0 [facility] Comment on above: Performed By: #### C P, CDP, BNP, TROPI #### [address] [place], [facility]83 Er Rn: Lula Melendez MD Lymphocytes (Bld) [#/Vol] 1.59 10*3/uL Normal 1.10-3.70 [facility] Comment on above: Performed By: #### C P, CDP, BNP, TROPI #### [address] [place] [address] Er Rn: Lula Melendez MD Lymphocytes/100 WBC (Bld) 21 % Low 24-43 [facility] Comment on above: Performed By: #### C P, CDP, BNP, TROPI #### [facility] [address] [place] [address] Er Rn: Lula Melendez MD MCH (RBC) [Entitic mass] 30.7 pg Normal 25.2-33.5 [facility] Comment on above: Performed By: #### C P, CDP, BNP, TROPI #### [facility] [address] [place] [address] Er Rn: Lula Melendez MD MCHC (RBC) [Mass/Vol] 32.4 g/dL Normal 28.4-34.8 [facility] Comment on above: Performed By: #### C P, CDP, BNP, TROPI #### [address] [place], [facility]83 Er Rn: Lula Melendez MD MCV (RBC) [Entitic vol] 94.7 fL Normal 82.6-102.9 [facility] Comment on above: Performed By: #### C P, CDP, BNP, TROPI #### [address] [place] [address] Er Rn: Lula Melendez MD Monocytes (Bld) [#/Vol] 0.94 10*3/uL Normal 0.10-1.20 [facility] Comment on above: Performed By: #### C P, CDP, BNP, TROPI #### [facility] [address] [place] [address] Er Rn: Lula Melendez MD Monocytes/100 WBC (Bld) 13 % High 3-12 [facility] Comment on above: Performed By: #### C P, CDP, BNP, TROPI #### [address] [place], [place] [id number] Er Rn: Lula Melendez MD Neutrophil (Seg) 60 % Normal 36-65 [facility] Comment on above: Performed By: #### C P, CDP, BNP, TROPI #### [address] [place], [place] [id number] Er Rn: Lula Melendez MD NRBC Automated 0.0 per 100 WBC Normal 0.0 [facility] Comment on above: Performed By: #### C P, CDP, BNP, TROPI #### [address] [place] [id number] Er Rn: Lula Melendez MD Platelet mean volume (Bld) [Entitic vol] 9.3 fL Normal 8.1-13.5 [facility] Comment on above: Performed By: #### C P, CDP, BNP, TROPI #### [address] [place], [facility]83 Er Rn: Lula Melendez MD Platelets (Bld) [#/Vol] 231 10*3/uL Normal 138-453 [facility] Comment on above: Performed By: #### C P, CDP, BNP, TROPI #### [address] [place], [place] [id number] Er Rn: Lula Melendez MD RBC (Bld) [#/Vol] 4.17 10*6/uL Low 4.21-5.77 [facility] Comment on above: Performed By: #### C P, CDP, BNP, TROPI #### [address] [place] [address] Er Rn: Lula Melendez MD WBC (Bld) [#/Vol] 7.5 10*3/uL Normal 3.5-11.3 [facility] Comment on above: Performed By: #### C P, CDP, BNP, TROPI #### [address] [place] [address] Er Rn: Lula Melendez MD [facility] 08-26-2024 Albumin [Mass/Vol] 3.7 g/dL 3.5 - 5.2 g/dL [facility] Albumin/Globulin [Mass ratio] 1.3 {ratio} 1.0 - 2.5 [facility] ALP [Catalytic activity/Vol] 49 U/L 40 - 129 U/L [facility] ALT [Catalytic activity/Vol] 16 U/L 10 - 50 U/L [facility] Anion gap [Moles/Vol] 11 mmol/L 9 - 16 mmol/L [facility] AST [Catalytic activity/Vol] 14 U/L 10 - 50 U/L [facility] Bilirubin [Mass/Vol] 0.2 mg/dL 0.00 - 1.20 mg/dL [facility] Calcium [Mass/Vol] 8.6 mg/dL 8.6 - 10. 4 mg/dL [facility] Chloride [Moles/Vol] 105 mmol/L 98 - 107 mmol/L [facility] CO2 [Moles/Vol] 24 mmol/L 20 - 31 mmol/L [facility] Creatinine [Mass/Vol] 1.0 mg/dL 0.70 - 1.20 mg/dL [facility] Est, Glom Filt Rate 88 - PINF [facility] Comment on above: These results are not intended for use in patients <18 years of age. eGFR results are calculated without a race factor using the 2020 CKD-EPI equation. Careful clinical correlation is recommended, particularly when comparing to results calculated using previous equations. The CKD-EPI equation is less accurate in patients with extremes of muscle mass, extra-renal metabolism of creatine, excessive creatine ingestion, or following therapy that affects renal tubular secretion. Glucose [Mass/Vol] 125 mg/dL High 74 - 99 mg/dL [facility] Potassium [Moles/Vol] 4.0 mmol/L 3.7 - 5.3 mmol/L [facility] Protein [Mass/Vol] 6.5 g/dL Low 6.6 - 8.7 g/dL [facility] Sodium [Moles/Vol] 140 mmol/L 136 - 145 mmol/L [facility] Urea nitrogen [Mass/Vol] 27 mg/dL High 8 - 23 mg/dL [facility] Urea nitrogen/Creatinin e [Mass ratio] 27 mg/mg High 9 - 20 [facility] Comp Metabolic Profon 2023 Albumin [Mass/Vol] 3.7 g/dL Normal 3.5-5.2 [facility] Comment on above: Performed By: #### C P, CDP, BNP, TROPI #### [facility] [address] [place] [address] Er Rn: Lula Melendez MD Albumin/Glob Ratio 1.3 Normal 1.0-2.5 [facility] Comment on above: Performed By: #### C P, CDP, BNP, TROPI #### [facility] [address] [place] [address] Er Rn: Lula Melendez MD Alkaline Phos 49 U/L Normal 40-129 [facility] Comment on above: Performed By: #### C P, CDP, BNP, TROPI #### [facility] [address] [place], [place] [id number] Er Rn: Lula Melendez MD ALT [Catalytic activity/Vol] 16 U/L Normal 10-50 [facility] Comment on above: Performed By: #### C P, CDP, BNP, TROPI #### [facility] [address] [place], [place] [id number] Er Rn: Lula Melendez MD Anion gap [Moles/Vol] 11 mmol/L Normal 9-16 [facility] Comment on above: Performed By: #### C P, CDP, BNP, TROPI #### [facility] [address] [place] [address] Er Rn: Lula Melendez MD AST [Catalytic activity/Vol] 14 U/L Normal 10-50 [facility] Comment on above: Performed By: #### C P, CDP, BNP, TROPI #### [facility] [address] [place], [place] [phone] Er Rn: Lula Melendez MD Bilirubin [Mass/Vol] 0.2 mg/dL Normal 0.00-1.20 [facility] Comment on above: Performed By: #### C P, CDP, BNP, TROPI #### [facility] [address] [place], [place] [id number] Er Rn: Lula Melendez MD BUN/CRE Ratio 27 High 9-20 [facility] Comment on above: Performed By: #### C P, CDP, BNP, TROPI #### [facility] [address] [place], [place] [phone] Er Rn: Lula Melendez MD Calcium [Mass/Vol] 8.6 mg/dL Normal 8.6-10.4 [facility] Comment on above: Performed By: #### C P, CDP, BNP, TROPI #### [facility] [address] [place], [place] [phone] Er Rn: Lula Melendez MD Chloride [Moles/Vol] 105 mmol/L Normal 98-107 [facility] Comment on above: Performed By: #### C P, CDP, BNP, TROPI #### [facility] [address] [place], [place] [phone] Er Rn: Lula Melendez MD CO2 [Moles/Vol] 24 mmol/L Normal 20-31 [facility] Comment on above: Performed By: #### C P, CDP, BNP, TROPI #### [facility] [address] [place], [place] [phone] Er Rn: Lula Melendez MD Creatinine [Mass/Vol] 1.0 mg/dL Normal 0.70-1.20 [facility] Comment on above: Performed By: #### C P, CDP, BNP, TROPI #### [facility] [address] [place] [address] Er Rn: Lula Melendez MD GFR/1.73 sq M.predicted among non-blacks MDRD (S/P/Bld) [Vol rate/Area] 88 mL/min/{1.73_m2} Normal >60 [facility] Comment on above: Result Comment: These results are not intended for use in patients <18 years of age. eGFR results are calculated without a race factor using the 2020 CKD-EPI equation. Careful clinical correlation is recommended, particularly when comparing to results calculated using previous equations. The CKD-EPI equation is less accurate in patients with extremes of muscle mass, extra-renal metabolism of creatine, excessive creatine ingestion, or following therapy that affects renal tubular secretion. Performed By: #### C P, CDP, BNP, TROPI #### [facility] [address] [place] [address] [place] [address] Er Rn: Lula Melendez MD Glucose [Mass/Vol] 125 mg/dL High 74-99 [facility] Comment on above: Performed By: #### C P, CDP, BNP, TROPI #### [address] [place] [address] Er Rn: Lula Melendez MD Potassium [Moles/Vol] 4.0 mmol/L Normal 3.7-5.3 [facility] Comment on above: Performed By: #### C P, CDP, BNP, TROPI #### [address] [place] [address] Er Rn: Lula Melendez MD Protein [Mass/Vol] 6.5 g/dL Low 6.6-8.7 [facility] Comment on above: Performed By: #### C P, CDP, BNP, TROPI #### [address] [place] [address] Er Rn: Lula Melendez MD Sodium [Moles/Vol] 140 mmol/L Normal 136-145 [facility] Comment on above: Performed By: #### C P, CDP, BNP, TROPI #### [facility] [address] [place] [address] Er Rn: Lula Melendez MD Urea nitrogen [Mass/Vol] 27 mg/dL High 8-23 [facility] Comment on above: Performed By: #### C P, CDP, BNP, TROPI #### [facility] [address] [place] [address] Er Rn: Lula Melendez MD No Panel Informationon 08-26 Interpretation and review of laboratory results Abnormal [facility] Troponinon 08-26-2024 Interpretation and review of laboratory results Abnormal [facility] Troponin I.cardiac High sensitivity method [Mass/Vol] 24 ng/L High 0 - 22 ng/L [facility] Comment on above: High Sensitivity Tro ponin values cannot be compared with other Troponin methodologies. [facility] Troponin, High Sens 24 ng/L High 0-22 [facility] Comment on above: Result Comment: High Sensitivity Troponin values cannot be compared with other Troponin methodologies. Performed By: #### T ROPI #### [facility] [address] [place] [address] Er Rn: Lula Melendez MD Troponin I.cardiac High sensitivity method [Mass/Vol] 23 ng/L High 0 - 22 ng/L [facility] Comment on above: High Sensitivity Tro ponin values cannot be compared with other Troponin methodologies. Troponin, High Sens 23 ng/L High 0-22 [facility] Comment on above: Result Comment: High Sensitivity Troponin values cannot be compared with other Troponin methodologies. Performed By: #### C P, CDP, BNP, TROPI #### [facility] [address] [place] [address] Er Rn: Lula Melendez MD XR CHEST (2 VW)on 08-26-2024 XR CHEST (2 VW) EXAMINATION: TWO XRAY VIEWS OF THE CHEST 08/26/2024 12:10 pm COMPARISON: None. HISTORY: ORDERING SYSTEM PROVIDED HISTORY: leg swelling TECHNOLOGIST PROVIDED HISTORY: leg swelling FINDINGS: There is left lower lobe infiltrate suspicious for pneumonia. The lungs otherwise are clear. Heart appears normal. Patient is status post sternotomy. There are old healed fractures of the right 6th and 7th ribs. Visualized upper abdomen appears normal. IMPRESSION: Left lower lobe infiltrate suspicious for pneumonia. Interpreted by: Capri Rios MD Signed by: Capri Rios MD 08/26/24 Final result Normal [facility] XR Chest 2 Viewson Left lower lobe infiltrate suspicious for pneumonia. [facility] EXAMINATION: TWO XRAY VIEWS OF THE CHEST 08/26/2024 12:10 pm COMPARISON: None. HISTORY: ORDERING SYSTEM PROVIDED HISTORY: leg swelling TECHNOLOGIST PROVIDED HISTORY: leg swelling FINDINGS: There is left lower lobe infiltrate suspicious for pneumonia. The lungs otherwise are clear. Heart appears normal. Patient is status post sternotomy. There are old healed fractures of the right 6th and 7th ribs. Visualized upper abdomen appears normal. [facility] Capri Rios MD - 08/26/2024 EXAMINATION: TWO XRAY VIEWS OF THE CHEST 08/26/2024 12:10 pm COMPARISON: None. HISTORY: ORDERING SYSTEM PROVIDED HISTORY: leg swelling TECHNOLOGIST PROVIDED HISTORY: leg swelling FINDINGS: There is left lower lobe infiltrate suspicious for pneumonia. The lungs otherwise are clear. Heart appears normal. Patient is status post sternotomy. There are old healed fractures of the right 6th and 7th ribs. Visualized upper abdomen appears normal. IMPRESSION: Left lower lobe infiltrate suspicious for pneumonia. [facility] Radiology Study observation (narrative) [facility] XR Chest 2 ViewsOrdered By: Capri Rios on 08-26-2024 [facility] [employer] Work Phone: Lipid Panelon 08-08-2024 Cholesterol [Mass/Vol] 132 mg/dL 0 - 199 mg/dL [facility] Comment on above: Cholesterol Guidelines: <200 Desirable 200-240 Borderline >240 Undesirable Cholesterol in HDL [Mass/Vol] 41 mg/dL 40 - PINF mg/dL [facility] [employer] Comment on above: HDL Guidelines: <40 Undesirable 40-59 Borderline >59 Desirable Cholesterol in LDL [Mass/Vol] 55 mg/dL 0 - 100 mg/dL [facility] Comment on above: LDL Guidelines: <100 Desirable 100-129 Near to/above Desirable 130-159 Borderline >159 Undesirable Direct (measured) LDL and calculated LDL are not interchangeable tests. Cholesterol in VLDL [Mass/Vol] 36 mg/dL High 1 - 30 mg/dL [facility] Cholesterol.total/ Cholesterol in HDL [Mass ratio] 3.2 {ratio} [facility] Interpretation and review of laboratory results Abnormal [facility] Triglyceride [Mass/Vol] 179 mg/dL High NINF - 150 mg/dL [facility] Comment on above: Triglyceride Guidelines: <150 Desirable 150-199 Borderline 200-499 High >499 Very high Based on AHA Guidelines for fasting triglyceride, June 2012. [facility] Lipid Profileon 08-08-2024 Cholesterol [Mass/Vol] 132 mg/dL Normal 0-199 [facility] Comment on above: Result Comment: Cholesterol Guidelines: <200 Desirable 200-240 Borderline >240 Undesirable Performed By: #### L IPR #### [facility] [address] [place] [id number] Er Rn: Hiram Mccullough MD Cholesterol in HDL [Mass/Vol] 41 mg/dL Normal >40 [facility] Comment on above: Result Comment: HDL Guidelines: <40 Undesirable 40-59 Borderline >59 Desirable Performed By: #### L IPR #### [facility] [address] [place] [id number] Er Rn: Hiram Mccullough MD Cholesterol in LDL [Mass/Vol] 55 mg/dL Normal 0-100 [facility] Comment on above: Result Comment: LDL Guidelines: <100 Desirable 100-129 Near to/above Desirable 130-159 Borderline >159 Undesirable Direct (measured) LDL and calculated LDL are not interchangeable tests. Performed By: #### L IPR #### [facility] [address] [place] [id number] Er Rn: Hiram Mccullough MD Cholesterol in VLDL [Mass/Vol] 36 mg/dL High 1-30 [facility] Comment on above: Performed By: #### L IPR #### [facility] [address] [place] [address] Er Rn: Hiram Mccullough MD Cholesterol.total/ Cholesterol in HDL [Mass ratio] 3.2 {ratio} Normal [facility] Comment on above: Performed By: #### L IPR #### [facility] [employer] [address] [place] [address] Er Rn: Hiram Mccullough MD Triglyceride [Mass/Vol] 179 mg/dL High <150 [facility] Comment on above: Result Comment: Triglyceride Guidelines: <150 Desirable 150-199 Borderline 200-499 High >499 Very high Based on AHA Guidelines for fasting triglyceride, June 2012. Performed By: #### L IPR #### [facility] [address] [place] [address] Er Rn: Hiram Mccullough MD POCT Hemoglobin A1con 2023 HbA1c (Bld) [Mass fraction] 7.4 % Abnormal 4 - 7 % [facility] Interpretation and review of laboratory results Abnormal [facility] CBC AND AUTO DIFFon 06-10-20 ABSOLUTE BASOPHIL 0.0 X10E9/L Normal 0.0-0.2 [facility] Comment on above: Performed By: #### 3 040-3, CMP, CBCA #### [facility] ([id number]) [address] [place] [address] ABSOLUTE NEUTROPHIL 6.0 X10E9/L Normal 1.5-6.6 [facility] Comment on above: Performed By: #### 3 040-3, CMP, CBCA #### [facility] ([id number]) [address], [facility] [address] [place] [address] Basophils/100 WBC (Bld) 0.3 % Normal [facility] Comment on above: Performed By: #### 3 040-3, CMP, CBCA #### [facility] ([id number]) [address] [address] [place] [address] Eosinophils (Bld) [#/Vol] 0.1 10*3/uL Normal 0.0-0.4 [facility] Comment on above: Performed By: #### 3 040-3, CMP, CBCA #### [facility] ([id number]) [address] [address] Eosinophils/100 WBC (Bld) 1.6 % Normal [facility] Comment on above: Performed By: #### 3 040-3, CMP, CBCA #### [facility] ([id number]) [address] [address] Erythrocyte distribution width (RBC) [Ratio] 15.6 % High 11.5-15.0 [facility] Comment on above: Performed By: #### 3 040-3, CMP, CBCA #### [facility] ([id number]) [address] [address] Hematocrit (Bld) [Volume fraction] 41.4 % Normal 39-49 [facility] Comment on above: Performed By: #### 3 040-3, CMP, CBCA #### [facility] ([id number]) [address] [address] Hemoglobin (Bld) [Mass/Vol] 14.1 g/dL Normal 13.0-17.0 [facility] Comment on above: Performed By: #### 3 040-3, CMP, CBCA #### [facility] ([id number]) [address] [address] Lymphocytes (Bld) [#/Vol] 1.5 10*3/uL Normal 1.0-3.5 [facility] Comment on above: Performed By: #### 3 040-3, CMP, CBCA #### [facility] ([id number]) [address] [address] Lymphocytes/100 WBC (Bld) 17.8 % Normal [facility] Comment on above: Performed By: #### 3 040-3, CMP, CBCA #### [facility] ([id number]) [address], [facility] [address] [place] [address] MCH (RBC) [Entitic mass] 31.3 pg Normal 27-34 [facility] Comment on above: Performed By: #### 3 040-3, CMP, CBCA #### [facility] ([id number]) [address], [facility] [address] [place] [address] MCHC (RBC) [Mass/Vol] 34.1 g/dL Normal 32-36 [facility] Comment on above: Performed By: #### 3 040-3, CMP, CBCA #### [facility] ([id number]) [address], [facility] [address] [place] [address] MCV (RBC) [Entitic vol] 92 fL Normal 80-100 [facility] Comment on above: Performed By: #### 3 040-3, CMP, CBCA #### [facility] ([id number]) [address], [facility] [address] [place] [address] Monocytes (Bld) [#/Vol] 0.7 10*3/uL Normal 0-0.9 [facility] Comment on above: Performed By: #### 3 040-3, CMP, CBCA #### [facility] ([id number]) [address], [facility] [address] [place] [address] Monocytes/100 WBC (Bld) 8.8 % Normal [facility] Comment on above: Performed By: #### 3 040-3, CMP, CBCA #### [facility] ([id number]) [address], [address] [place] [address] Neutrophils/100 WBC (Bld) 71.5 % Normal [facility] Comment on above: Performed By: #### 3 040-3, CMP, CBCA #### [facility] ([id number]) [address], [address] [place] [address] Platelet mean volume (Bld) [Entitic vol] 7.1 fL Normal 7-12 [facility] Comment on above: Performed By: #### 3 040-3, CMP, CBCA #### [facility] ([id number]) [address], [facility] [address] [place] [address] Platelets (Bld) [#/Vol] 244 10*3/uL Normal 150-450 [facility] Comment on above: Performed By: #### 3 040-3, CMP, CBCA #### [facility] ([id number]) [address], [address] [place] [address] RBC COUNT 4.51 X10E12/L Normal 4.10-5.70 [facility] Comment on above: Performed By: #### 3 040-3, CMP, CBCA #### [facility] ([id number]) [address], [facility] [address] [place] [address] WBC (Bld) [#/Vol] 8.4 10*3/uL Normal 4.0-11.0 [facility] Comment on above: Performed By: #### 3 040-3, CMP, CBCA #### [facility] ([id number]) [address], [address] [place] [address] COMPREHENSIVE METABOLIC PANE Néstor 06-10-2024 Albumin [Mass/Vol] 4.1 g/dL Normal 3.2-5.3 [facility] Comment on above: Performed By: #### 3 040-3, CMP, CBCA #### [facility] ([id number]) [address], [address] [place] [address] ALP [Catalytic activity/Vol] 46 U/L Normal 39-130 [facility] Comment on above: Performed By: #### 3 040-3, CMP, CBCA #### [facility] ([id number]) [address], [address] [place] [address] ALT [Catalytic activity/Vol] 23 U/L Normal 0-40 [facility] Comment on above: Performed By: #### 3 040-3, CMP, CBCA #### [facility] ([id number]) [address], [address] [place] [address] Anion gap [Moles/Vol] 8 mmol/L Normal 5-15 [facility] Comment on above: Performed By: #### 3 040-3, CMP, CBCA #### [facility] ([id number]) [address], [address] [place] [address] AST [Catalytic activity/Vol] 18 U/L Normal 0-41 [facility] Comment on above: Performed By: #### 3 040-3, CMP, CBCA #### [facility] ([id number]) [address] [place] [address] Bilirubin [Mass/Vol] 0.3 mg/dL Normal 0.3-1.2 [facility] Comment on above: Performed By: #### 3 040-3, CMP, CBCA #### [facility] ([id number]) [address] [place] [address] Calcium [Mass/Vol] 9.1 mg/dL Normal 8.5-10.5 [facility] Comment on above: Performed By: #### 3 040-3, CMP, CBCA #### [facility] ([id number]) [address], [address] [place] [address] Chloride [Moles/Vol] 106 mmol/L Normal 98-109 [facility] Comment on above: Performed By: #### 3 040-3, CMP, CBCA #### [facility] ([id number]) [address], [address] [place] [address] CO2 [Moles/Vol] 26 mmol/L Normal 22-32 [facility] Comment on above: Performed By: #### 3 040-3, ANUP, CBCA #### [facility] ([id number]) [address] [address] [place] [address] Creatinine [Mass/Vol] 0.78 mg/dL Normal 0.60-1.30 [facility] Comment on above: Result Comment: METH OD TRACEABLE TO IDMS STANDARD Performed By: #### 3 040-3, ANUP, CBCA #### [facility] ([id number]) [address] [address] eGFR (CKD-EPI) NON-RACE DEPENDENT >90 Normal >59 [facility] Comment on above: Result Comment: Reported eGFR is based on the CKD-EPI 2020 equation that does not use a race coefficient. Performed By: #### 3 040-3, ANUP, CBCA #### [facility] ([id number]) [address] [address] [place] [address] Glucose [Mass/Vol] 142 mg/dL High 65-99 [facility] Comment on above: Performed By: #### 3 040-3, ANUP, CBCA #### [facility] ([id number]) [address] [address] [place] [address] Potassium [Moles/Vol] 4.1 mmol/L Normal 3.5-5.0 [facility] Comment on above: Performed By: #### 3 040-3, CMP, CBCA #### [facility] ([id number]) [address] [address] [place] [address] Protein [Mass/Vol] 7.1 g/dL Normal 6.0-8.0 [facility] Comment on above: Performed By: #### 3 040-3, CMP, CBCA #### [facility] ([id number]) [address] [place] [address] Sodium [Moles/Vol] 140 mmol/L Normal 134-146 [facility] Comment on above: Performed By: #### 3 040-3, CMP, CBCA #### [facility] ([id number]) [address] [place] [address] Urea nitrogen [Mass/Vol] 20 mg/dL Normal 5-27 [facility] Comment on above: Performed By: #### 3 040-3, CMP, CBCA #### [facility] ([id number]) [address] [place] [address] Glucose Glucometer (BldC) [M ass/Vol]on 06-10-2024 Glucose [Mass/Vol] 108 mg/dL High 65-99 [facility] LIPASEon 06-10-2024 Lipase [Catalytic activity/Vol] 38 U/L Normal 11-82 [facility] Comment on above: Performed By: #### 3 040-3, CMP, CBCA #### [facility] ([id number]) [address], [address] [place] [address] MR CERVICAL SPINE WO CONTon 06-10-2024 MR [...] central disc protrusion at C6-C7. Finalized by Nathan Agee on 06/10/2024 6:04 PM Normal [facility] MR LUMBAR SPINE WO CONTon MR LUMBAR [...] detailed description of individual levels. Finalized by Nathan Agee on 06/10/2024 6:11 PM Normal [facility] MR THORACIC SPINE WO CONTon 06-10-2024 MR [...] Ovalle MD on 06/10/2024 6:05 PM Normal [facility] URN MACROSCOPIC NURon 2023 BILIRUBIN FERNANDO Negative Normal NEG [facility] Comment on above: Performed By: #### N UM #### [facility] ([id number]) [address] [place] [address] BLOOD/HGB FERNANDO Negative Normal NEG [facility] Comment on above: Performed By: #### N UM #### [facility] ([id number]) [address] [place] [address] GLUCOSE FERNANDO >=1000 Abnormal NEG [facility] Comment on above: Performed By: #### N UM #### [facility] ([id number]) [address] [place] [address] KETONES FERNANDO Negative Normal NEG [facility] Comment on above: Performed By: #### N UM #### [facility] ([id number]) [address] [place] [address] LEUKOCYTE ESTERASE FERNANDO Negative Normal NEG [facility] Comment on above: Performed By: #### N UM #### [facility] ([id number]) [address] [place] [address] NITRITE FERNANDO Negative Normal NEG [facility] Comment on above: Performed By: #### N UM #### [facility] ([id number]) [address] [place] [address] PH FERNANDO 6.5 Normal 5.0-8.5 [facility] Comment on above: Performed By: #### N UM #### [facility] ([id number]) [address] [place] [address] PROTEIN FERNANDO Negative Normal NEG [facility] Comment on above: Performed By: #### N UM #### [facility] ([id number]) [address] [place] [address] SPECIFIC GRAVITY FERNANDO 1.020 Normal 1.003-1.035 [facility] Comment on above: Performed By: #### N UM #### [facility] ([id number]) [address] [place] [address] UROBILINOGEN FERNANDO 0.2 eu/dL Normal <1.1 [facility] Comment on above: Performed By: #### N UM #### [facility] ([id number]) [address] [place] [address] Urine collection deviceon ER EXTRA URINES ER EXTRA URINE ORDER IN PROCESS Normal [facility] Coding Summaryon 03-25-2024 Coding Summary HTMLBase 64 FipfddzmPFd3vFz+PGhlYWQ+ LN0GHJAdU38mhRTvoS8fN7HO TElOSywgQVBQTElOSyIgbmFt UH3niHJjGSPe IC8+LT4tNDTzOqynbAGua8U4 dXW3J64tch5sEVrecWT7JJGf PjCsnzxhp1aapDn5UNbmRrvz OyBt HJFmaB48UGZ9jV69To70oRXi pMSeo4qfrMr3UtLgGKDzJZC5 yBlsXCbew2IzDFBxM21oiKUr c2U6 ZCNzaFuwsNNfLaYxyEP6pD2l GQftvegsw8khedwsGxr2vc24 hPOab6A5xIA5B4BdseV5SWJc bGQg OanfnABMcW5brniuh8ptduxu KiVyQVSxENu2JIz0WOTezYsx SxKfYA96CVJ0FAJgfjZsT7Tt LWFs nUlaQvP3l6W8Zr5PS0DKYtlu M3WHLPFBHAjwzUF+ZM73cx03 X4PbChejTfi7UDEpOSY0wUO9 aD0n UTKoGKctc8K6pTO0N5JfflBb vm3mq2znUJIhTTobW85lwWGl p0H9QSSskJJ0BPXaqUsgHmSc aG93 Oyc+BVRteMobg7BmQyukt9iy s8xcrVw4DpbdYWKmqiFgjSzh CEB9a9DyDw6lSMWfmIT7gIF5 aD0i LmIvXgX4YAcjR469XwHmzNYp NxdxD84cG7VctHB+PHRyPjx0 EALvcNnhAL1lS6KrIGKdrsdu bGVm kNqeHA1oPCGrnqygQINoaR3s USFgW9t1AzJrIvB9GUfkB2Hb PMIdfedcAk55mF8dUfEtCxO2 MGlu F9TmhjD8UIZouIYaOIrzGDX9 O34iv0D0BMXrZKDuMKO4wXI9 mL5oqIyhehjfqMRkjXhpcyMm dGlj QNdvTLhvP858ZEMvcHfjNlFh ZGluZyBEYXRlOiAgMDcvMjMv MjAyNDwvdGQ+ILGkXOJ5zPmh PSAn fJOpQNklEk7plMfebKebIP6y BURmxtkuXWRsdP1eABZitWKm zSyuUJ3aPOLqgzvpl742YdXx MHB0 AVInqCScI7OmzK5xObTcJJJz KGZoG5HglIGuVWjkK321BGbb TmR3IAUbqrDbN7MqUDQdlQqv OiB0 l7J9Dr8Hx9NwidkbH6JpjHWk QyWcTuqhABe4C2UpIdtjfVJ+ AS34EEBjQC59PAz8IFD6qLuv PSdi KRRaC5AnkW0tIxYnHMLtMEBj Oyc+PHRhYmxlIHdpZHRoPScx PUQnXiQtvVaoHJ2tNp2gGWBv LWNv oZhrhOAhFlWfe8pxCEShQQyg WI1wkZexC0MfdDD1PVFyb5j5 Yh74R99gK1UtiJD+PGNvbCB3 aWR0 gT8bIoKdVnN6IYenN637DbFx eTNiVhquj4pxn7qvlTy9IiD9 YCZcmcMgrBtqAPD1h1LoJr54 Y29s IHdpZHRoPSIxNSUiIHZhbGln bf5gxH4zIk4+FJRcaAT9mUC8 dJ2tFiBdImJ5HMkcK938FyVi cCIv Slsxg9zqt5xjsRp6RdLuDEZa ejLrvTggYTX9v9ScIg38J8At uAvgb4FvUcl5ae92iAIom3V2 bGU9 D3JzWPHnqocluGCdoHtzZQ8r LNCdkjmgLTZplA2jKFGjF5h1 FrMmRkB8FZptO7ZpwcO6BWZy bGQg HJPnoVTAtJ4vlvpcp5ptuyqm YvPuGIBfLLt2WKi5ZRJzmFrb CzYoAHW8TyF8WJF8kAVfiW7p bGln kuvtqD8nSgx+VXZ3iOHlmACA KQ3vEradrQS+HHNaHUD9sEbr QAohTZLdeO7hDRBpX3k3CuSa LjA1 NEwkL2NwccZ7SIJcxYRvAUDa jXYErA4eadfhf2zyrstdSsJp OCYdPIx5CUv8DZCkvRqjNqZf ZWZ0 GeG8NUX4mQCgiI0hfCnodmsj bD7dOfx+CtjryQwsECX9KQh4 A3MfQoa5ITOmyKpoAK5pqDAr ZGlu Zw1icZbgbQbmDF4tYWAgtazn t622VwNnk0xiWFKvyBWtEScs EZV2Q57dd6O4FVLgHWEuQSZ5 dGV4 aD0irUgkbdiooPBdpPfszhWm aNvmKDedCLwyV940WAAhhLns VsUeZEj2I3ApFrf5VUNouBlp ZT0n uNYvFFrxLd8slVzeuXgvJD3e TTMlgshan718LjIlz6qeQLUt oBCnRBouHJZ4R83gg3M1SHYk MDAw HHX0hOJ6xZ6lbIfptebauLSl zRpxkuZbyJvnZIqlLEmkQ276 WPLpzHmlZhRyvBq2H8MdUky4 ZCBz uNojKM9jdZVsLObbJj1vhPkb cOzoMV2vQQGjkqphs883MkHu f9zjLEMbdKViVLemYCB4N38y b3I6 DMXtBEWmSAF2aYZ9oK7xmHqr bjogbGVmdDsgdmVydGljYWwt WJumG111NLEftJveTkVduMcp bnQg CHvxCKh3M9QoYqlvsEE+PC90 OUGtBT45nPMurIAgy7nrpIs7 HoJoMJVmWLR8mJqhFYpuc2Gk ZXIt V27ohOVzw1I7HTJkmFiypZBx TbWbcAE2fR3wBXjdsoigo5ij rxeyMhcqk9oefg04fJ25A51p IHdp JYWqZLGvIZEpGHFlfEvvgo4a gT9kYs3+LZKwaWI0uVH0wE7b VSNqPmX6HWcnR715AeEvgHVn Pjxj k4osn9qtkGr4ZoI2QQNcjsZa mWknNRT4b7KhEj20Y87gDSkq XNTyZXFvTDNcOZOxzIpbub4r dG9w Ii8+WUFkqDC2uZO5vR8zRpSu SwN7XNcxM416FwYneZXqErbo K84kJ3OvuMD+BOJaWgu0UJBt dHls OC9mmBAlXSyaGa7fGOY8RlRa NrTfWSlvI5JcCBKhjvexysxc aEK2TSNfMBFzwH76Wq7enPjc MTBw tKHAhS2pehiva7oqwsvnQbYu XVYsYWd9SDu7QOQxaCsuElEd FNI3IxT3HVG0tHBimV1djHfx bjog sO8eV2AyOKIimaztPo82oW6s UrKdVdI2ZLgqOko+RkVITCwg Al9FUbFQGH99NA91bFJfs0G8 bGU9 H5TnTSZeoqyxultubXE0JKEr CADvhO61qBOoUFxhYu4wz2Q8 q990CQJvBYJneM81Wv2wlWaz MTBw yRYQjR8qyuier8bgeswiFyJy BDMiKVh6XJj9KOIsgFqiQlRi GIT7OaI2XFX1xCZkxI5xeUsx bjog fI4gSlt+TMQjXtFfYDk5HOwq dGQ+UEOvXZI4wTqnMYrmAMKa wY5yYDDzI3e3KhFtEdW6JVqt O3Bh FFLoiprhPd97iM5vLpOePiQ6 HJbuA2ZjcqH0FVVdjOVkRFhi YTL3K35pd3S7GXGsGURtNXT7 dGV4 bS1jeTdjafjhfSJwfMcwnbGh wEqzVKkuFJjqL860GLPdeLus AaZ5ATyvYTGtQH91HU47kQVy c3R5 rCK2B2YaSFBlitefgrstoWD4 TIZzLFOycP22gITvXHokMf5z f0K0w052GCDbVFYpiR70Ke3p dDog XLHsyYQSiN8wcngek3okueol VmBpAQObYMf2WAb5FJXvxXrn KaBiXAN2ExG2OJM5fFDltO6l bGln fjwerY6bCvx+TUFMRTwvdGQ+ BCWkTCP0sPnnRZovNLJsvU1l ZIEiU2b8ZlImKlE5VWjhB2Rb ZGRp ucdjPr00rE4lPcJzKqR1DXjy I1UgiwK0IJIfvOWwMAgdZSV3 N27ke8P3CEDwEUGgOPE0kZM9 dC1h bGlnbjogbGVmdDsgdmVydGlj ZSpzEFbjL883TNMnkTjvXdPc DUMsGJ9xtWnuvUV+ZH93te76 L3Rh FivoCqq1LSIiYRW5tGB4nY9w RJYyEEnhb9W0xWO7J2PupfRl ga6xw5rhCGBeQQyqL11igHDe c2U7 VEHthYY7JJUjjAmpRaGbcJ18 Oyc+NZNbhXoov0YlDyetx8gz g9vvlDg5JtDyJGKcugJgcKmb PSJ0 m9BaEo72A20rYDmnDCAdEKZt FKYkPIFgeKlpya4cgB5dCl8+ HATfbCG1tUF3fK5kQsLuPqE8 YWxp Z864HmBedMXlIaqvr5uce7wu iVr3DsEnXIPxlkRcgJvoNGT6 z1FyUe88V3NedCsup0AlHoy4 cj48 rQEqp9F1sLP6J9LoCFZgqcxn wJGkxDtzYO2nMRUtoqzzISKj xG8qKKJrT7b3EtIxPvC2OYta O2Zv owN6KHKddORtZKXpkOLYvB3y blobv8ewgtymQpBoCZNmAKd2 FQg6JTYykXrcOhTvTHJ9ZlY4 ZXJ0 cNXhdP2kyJuxwstytU1zHzw+ AZx8j3cqlEZpBM1ccYM7DB97 IN48vKLei1T1qUC5R4WzLHYt bmct zqaxtVV5UEYsCEHkmS89Nw4g gFokDi3xQWSwBZB6NVFawLDz V1UfgF3qDwHdKHPxOHXcN1Gl eHQt VTdvX698ONmtMpN1DDUewqNu X8TyBHVyuOadQsO7h7P7Bk6H WJ83JE22JR19wVMxs4J8qGO6 J3Bh ZBIhjpytdoohaAW6AILvEBGq rP82Hz0kdLalSf7tOJWyQIK4 OFOdgJBwY8EjkF6qImNuLPOi MDAw J9IitYLlVNsvQ365IBtsJaS7 GNThhuQlT9WpPNImeXqmXtU5 e9O5Gy5QZz85LO61ND89rIXm c3R5 oGE7Z2FiXEBqsltqqvtveSI4 MAFoIWFzgZ63Vu8ifAvzBw7r LGYyUTF6MEWwgZLjX3UlbN0k OiAj BHMyZTVeD5RtnZEbKUvgC420 QXetKgS3ZXDvivVwD4ZbYYJl dMgsPyC4g3C7Pz3DGMfiiju2 L3Rk PjwvdHI+CH73GIPlQA11yKRt kQFuh3oskKo8VlJfTEYfIIV1 gToaVLkmk9AxJDYnH95ftLIg c2U6 IGN (more content not included)... [facility] Consent Formson 03-17-2024 Consent Forms [id number] TIFF [facility] ED Note - Physicianon 2023 ED [...] at discharge. Impression and Plan Diagnosis Diabetes ([id number]-UW E11.9, Discharge, Medical) Plan Condition: Stable. Disposition: Left against medical advice. [Electronically Signed on: 03/17/2024 06:00 EDT] Skyler Blabuena DO [Verified on: 03/17/2024 06:00 EDT] Skyler Balbuena DO [facility] ED Clinical Summaryon 2023 ED Clinical Summary [facility] - Emergency Department [address] [place], [place] [address] ED Clinical Summary PERSON INFORMATION Name: TOM KHAN Age: 68 Years Sex: MALE : 1955 MRN: Acct#: Visit Reason: Hypoglycemia; LOW BLOOD SUGAR Arrival: 03/15/2024 21:36:27 Discharge: 03/15/2024 23:10:00 LOS: 000 01:34 Check In: 03/15/2024 21:36:27 Checkout:03/15/2024 23:10:00 Address: [address] [place] [address] [facility] [id number] PCP: Provider, None PROVIDER INFORMATION Provider Role Assigned Unassigned Eli Estrada ZOO KEEPER Nurse 03/15/2024 22:04:36 Skyler Balbuena DO ED [...] Patient/family/caregiver verbalizes understanding of instructions given Comment: [facility] ED Note-Nursingon 03-15-2024 ED Note-Nursing Patient tired of waiting. Wanted to leave AMA. Signed AMA paper and left. Did allow for one last finger stick blood sugar which was 144. [facility] ED Note-Nursing called. She was very [...] abrupt and said she may call back. [facility] ED Patient Education Noteon 03-15-2024 ED Patient Education Note Education Materials [facility] ED Patient Summaryon 024 ED Patient Summary [facility] - Emergency Department [address] [place] [address] PATIENT DISCHARGE INSTRUCTIONS Patient Information Name: TOM KHAN Age: 68 Years Date of : 1955 Reason For Visit: Hypoglycemia; LOW BLOOD SUGAR Arrival Time: 03/15/2024 21:36:27 Primary Care Physician: Provider, Jay Attending Physician: Skyler Balbuena DO Comment: Visit Diagnosis: Diagnoses This Visit Hypoglycemia ([id number] -[id number]) The Pharmacy at [facility] is open Sunday through Sunday from 9A [...] alcohol and/or drug addiction problems; contact the Mental Health [facility] Recovery [facility] 26/03 Crisis Hotline -Text 3PGAU lf [phone]. If you received any narcotics, sedation, or [...] and treatment you received today in the [facility] Emergency Department were for an urgent problem and are not intended as complete care. It is important for you to follow up with a doctor, nurse practitioner, or physician?s porcelain buildup assistant for ongoing care. If your symptoms [...] so we can reach you if necessary. [facility] Emergency Department has provided you with a complete list of medications post discharge. Please inform your body artist/provider of your visit and for further instruction [...] Yes Antibiotic (more content not included)... Normal [facility] POCT Glucose Levelon 024 Glucose [Mass/Vol] 144 mg/dL High [address] [facility] Comment on above: Result Comment: OPR_ ID=[email or web address],TGC FLAG = False,Meter:[id number] Supervisor In [employer]:[id number] Natalie Benitez Performed By: #### 4 [id number] #### [facility] (DEFAULT) [address] [place] [id number] Glucose [Mass/Vol] 176 mg/dL High [address] [place] [address] Comment on above: Result Comment: OPR_ ID=IN_LIST,TGC FLAG = False,Meter:[id number] Supervisor [employer]:3045 Charlotte Abarca Performed By: #### 4 [id number] #### [facility] (DEFAULT) [address] [place] [address] XR ABDOMEN AP 1 VWon 024 XR [...] Arturo Reed MD on 03/15/2024 9:49 AM [facility] XR Abdomen APon 03-15-2024 HISTORY: A 68-year-o ld male with the history of the symptomatic [...] Arturo Reed MD on 03/15/2024 9:49 AM [facility] Arturo Reed MD - 03/15/2024 HISTORY: A 68-year-old male with the history [...] Arturo Reed MD on 03/15/2024 9:49 AM [facility] XR Abdomen APOrdered By: Alma Reed on 03-15-2024 [facility] Work Phone: XR Abdomen APon 03-14-2024 Radiology Study observation (narrative) [facility] Measure post void residualon 02-06-2024 Volume 99ml [facility] POCT Hemoglobin B7xVakbdeh B y: Jenn Zheng on 12-14-2023 HbA1c (Bld) [Mass fraction] 7.7 g/dL Abnormal 4 - 7 g/dL [facility] Interpretation and review of laboratory results Abnormal [facility] Ambulatory referral to Diabe tic Educationon 12-11-2023 [facility] Measure post void residualon 11-26-2023 Volume 102 [facility] POCT Urinalysis Auto, W/O Mi croscopyon 11-26-2023 External Poct Urine Blood Negative [facility] External Poct Urine Glucose 3+ [facility] External Poct Urine Ketones Negative [facility] External Poct Urine Leukocyte Esterase Negative [facility] External Poct Urine Nitrite Negative [facility] External Poct Urine Ph 6.0 [facility] External Poct Urine Protein Negative [facility] CBC auto differentialon 11-01 Basophils (Bld) [#/Vol] 0.0 10*3/uL [facility] Basophils/100 WBC (Bld) 0.6 % [facility] Eosinophils (Bld) [#/Vol] 0.3 10*3/uL [facility] Eosinophils/100 WBC (Bld) 3.8 % [facility] Erythrocyte distribution width (RBC) [Ratio] 16.3 % High 11.5 - 15.0 % [facility] Hematocrit (Bld) [Volume fraction] 43.0 % 39 - 49 % [facility] Hemoglobin (Bld) [Mass/Vol] 14.3 g/dL 13.0 - 17.0 g/dL [facility] Interpretation and review of laboratory results Abnormal [facility] Lymphocytes (Bld) [#/Vol] 1.6 10*3/uL [facility] Lymphocytes/100 WBC (Bld) 24.1 % [facility] MCH (RBC) [Entitic mass] 30.2 pg 27 - 34 pg [facility] MCHC (RBC) [Mass/Vol] 33.4 g/dL 32 - 36 g/dL [facility] MCV (RBC) [Entitic vol] 90 fL 80 - 100 fL [facility] Monocytes (Bld) [#/Vol] 0.7 10*3/uL [facility] Monocytes/100 WBC (Bld) 10.3 % [facility] Neutrophils (Bld) [#/Vol] 4.1 10*3/uL [facility] Neutrophils/100 WBC (Bld) 61.2 % [facility] Platelet mean volume (Bld) [Entitic vol] 7.5 fL 7 - 12 fL [facility] Platelets (Bld) [#/Vol] 290 10*3/uL [facility] RBC (Bld) [#/Vol] 4.75 10*6/uL [facility] WBC corrected for nucl RBC Auto (Bld) [#/Vol] 6.7 [facility] Comprehensive metabolic pane néstor 11-16-2023 Albumin [Mass/Vol] 4.5 g/dL 3.2 - 5.3 g/dL [facility] ALP [Catalytic activity/Vol] 56 U/L 39 - 130 U/L [facility] ALT No additional P-5'-P [Catalytic activity/Vol] 38 U/L 0 - 40 U/L [facility] Anion gap [Moles/Vol] 10 mmol/L 5 - 15 mmol/L [facility] AST [Catalytic activity/Vol] 23 U/L 0 - 41 U/L [facility] Bilirubin [Mass/Vol] 0.6 mg/dL 0.3 - 1.2 mg/dL [facility] Calcium [Mass/Vol] 9.7 mg/dL 8.5 - 10. 5 mg/dL [facility] Chloride [Moles/Vol] 105 mmol/L 98 - 109 mmol/L [facility] CO2 [Moles/Vol] 26 mmol/L 22 - 32 mmol/L [facility] Creatinine [Mass/Vol] 0.85 mg/dL 0.60 - 1.30 mg/dL [facility] Comment on above: METHOD TRACEABLE TO [facility] STANDARD eGFR (CKD-EPI)non-race dependent - PINF [facility] Comment on above: Reported eGFR is based on the CKD-EPI 2020 equation that does not use a race coefficient. Glucose [Mass/Vol] 129 mg/dL High 65 - 99 mg/dL [facility] Potassium [Moles/Vol] 4.3 mmol/L 3.5 - 5.0 mmol/L [facility] Protein [Mass/Vol] 7.8 g/dL 6.0 - 8.0 g/dL [facility] Sodium [Moles/Vol] 141 mmol/L 134 - 146 mmol/L [facility] Urea nitrogen [Mass/Vol] 25 mg/dL 5 - 27 mg/dL [facility] Lipid 1996 panelon 4 Cholesterol [Mass/Vol] 149 mg/dL Low 150 - 200 mg/dL [facility] Cholesterol in HDL [Mass/Vol] 45 mg/dL 39 - PINF mg/dL [facility] Comment on above: HDL <40 mg/dL - High Risk HDL > or = 40mg/dL- Desirable HDL >60 mg/dL - Negative Risk Cholesterol in LDL [Mass/Vol] 66 mg/dL NINF - 130 mg/dL [facility] Comment on above: LDL <100 mg/dL - Desirable LDL >160 mg/dL - High Risk Cholesterol in VLDL [Mass/Vol] 38 mg/dL High 0 - 30 mg/dL [facility] Cholesterol.total/ Cholesterol in HDL [Mass ratio] 3.3 {ratio} 1.0 - 5.0 [facility] Triglyceride [Mass/Vol] 192 mg/dL High 27 - 150 mg/dL [facility] Natriuretic peptide B [Mass/ Vol]on 11-16-2023 Natriuretic peptide B (Bld) [Mass/Vol] 37 pg/mL NINF - 100.0 pg/mL [facility] No Panel Informationon 11-15 Interpretation and review of laboratory results Abnormal [facility] Prostate specific Ag [Mass/V ol]on 11-16-2023 [facility] Prostatic specific antigen s creenon 11-16-2023 Prostate specific Ag [Mass/Vol] 0.98 ng/mL 0.00 - 4.00 ng/mL [facility] Comment on above: The method used for this test is [employer] [place] DXI chemiluminescent immunoassay. Values obtained by different assay methods cannot be used interchangeably. TSH with Reflexon 11-16-2023 TSH Qn 1.35 m[IU]/L [facility] US Abdomen limitedon 024 Clinical history: Ri [...] A Ware MD on 11/16/2023 4:14 PM [facility] Miguel A Ware MD - 11/16/2023 Clinical [...] A Ware MD on 11/16/2023 4:14 PM [facility] Study observation (narrative) [facility] US Abdomen limitedOrdered By : Miguel A Ware on 11-16-2023 [employer] Work Phone: US.doppler Lower extremity v ein [...] not visualized or surgically absent. PM CARDIOVASCULAR Master Teixeira MD - 11/16/2023 Right: [...] vein is not visualized or surgically absent. [facility] Radiology Study observation (narrative) [facility] US.doppler Lower extremity v ein - bilateralOrdered By: Devika Jennifer Doumang on 11-16-2023 [facility] Work Phone: XR Chest PA and Lateralon XR CHEST [...] Reilly Hassan MD on 11/16/2023 10:44 AM SE[facility]ACS Reilly Hassan M D - 11/16/2023 XR CHEST 2 [...] Reilly Hassan MD on 11/16/2023 10:44 AM [facility] Radiology Study observation (narrative) [facility] XR Chest PA and LateralOrder ed By: Reilly Hassan on 11-16-2023 [facility] Work Phone: Glucose Glucometer (BldC) [M ass/Vol]on 09-19-2023 Glucose [Mass/Vol] 255 mg/dL High 65 - 99 mg/dL [facility] Interpretation and review of laboratory results Abnormal Activity [facility] Bacteria identifiedon 2022 Bacteria identified Cx Nom (U) Test: Urine Culture Specimen Type: Urine Specimen Date: 07/21/2023 11:49 AM Result Date: 07/23/2023 2:29 PM Result Status: Final result Abnormal: No Resulting Lab: [facility] [address] [id number] CULTURE No growth [facility] Comment on above: Performed By: #### 6 30-4 #### CHRIS Virk ([id number]) [facility] ([facility]) [address] [place] [address] Office Visit (Cardiology)on 03-15-2023 Follow-up visit Diagnoses/Problems [...] Aminotransferase, Serum; Status:Active - Retrospective Authorization; Requested for:[id number]; AST; Status:Active - Retrospective Authorization; Requested for:[id number]; Lipid Panel; Status:Active - Retrospective Authorization; Requested for:[id number]; CAD, multiple vessel, Hypertension IO EKG Electrocardiogram- 12 Lead; Status:Complete; Done: [id number] Class 1 obesity with body mass index (BMI) of 34.0 to 34.9 in adult Healthy Weight Tips; Status:Complete - Retrospective Authorization; Done: [id number] Some eating tips that can help you lose weight.; Status:Complete - Retrospective Authorization; Done: [id number] SocHx: Never a smoker Tobacco Use Screening; Status:Complete; Done: [id number] Patient Instructions Please bring all medicines, vitamins, [...] Patient brou (more content not included)... Normal [place] Tobacco Screening.on 023 Fall risk assessment b) One or more falls in the last year [facility] [employer] 250 DO Work Phone: Tobacco use status [facility] b) No [facility] [employer] 250 DO Work Phone: XR CHEST AP/PA [...] on SunJanuary 04, 2023 8:22:49 PM EDT Normal [facility] Comment on above: Order Comment: Injur y/Trauma or Illness?:Illness/Other How long have you had these symptoms (acute/chronic)?:Acute Reason for exam?:cough History of cancer?:unk Surgeries, chemotherapy, or radiation?:unk Type of Exam?:Initial Additional signs and symptoms?:SOB, open heart 09 XR Chest AP/PA and LATon Nonacute portable chest. Workstation ID: [id number] [employer] EXAMINATION: XR CHEST AP/PA AND LAT 01/04/2023 [...] are intact. Sternal wires indicate prior surgery. [employer] Niko Hudson, DO - 01/04/2023 EXAMINATION: XR [...] IMPRESSION: Nonacute portable chest. Workstation ID: [id number] [facility] Radiology Study observation (narrative) [facility] XR Chest AP/PA and LATOrdere d By: Niko Hudson on 01-04-2023 [facility] Work Phone: VIT B12 AND FOLATEon 022 Cobalamin (Vitamin B12) [Mass/Vol] 483.0 pg/mL Normal 193.0-986.0 [facility] Comment on above: Performed By: #### B 12FOL #### [facility] [address] [address] [address] Cary Malagon FOLATE 21.00 ng/mL Normal 8.60-58.90 [facility] Comment on above: Performed By: #### B 12FOL #### [facility] [address] [address] [address] Cary Malagon COMPREHENSIVE METABOLIC PANE Néstor 03-17-2022 Albumin [Mass/Vol] 4.4 g/dL Normal 3.6-5.1 [facility] Comment on above: Performed By: #### 4 96, 72542, 7600 #### [facility] [address] [place] [address] Sales Property Manager: Ck Wallis MD Albumin/Globulin [Mass ratio] 1.7 {ratio} Normal 1.0-2.5 [facility] Comment on above: Performed By: #### 4 96, 26142, 7600 #### [facility] [address] Sales Property Manager: Ck Wallis MD ALP [Catalytic activity/Vol] 45 U/L Normal 35-144 [facility] Comment on above: Performed By: #### 4 96, 64445, 7600 #### [facility] [address] [address] Sales Property Manager: Ck Wallis MD ALT [Catalytic activity/Vol] 29 U/L Normal 9-46 [facility] Comment on above: Performed By: #### 4 96, 67453, 7600 #### [facility] of [address], [address] [place] [address] Sales Property Manager: Ck Wallis MD AST [Catalytic activity/Vol] 18 U/L Normal 10-35 [facility] Comment on above: Performed By: #### 4 96, 32150, 7600 #### [facility] of [address], [address] [place] [address] Sales Property Manager: Ck Wallis MD Bilirubin [Mass/Vol] 0.3 mg/dL Normal 0.2-1.2 [facility] Comment on above: Performed By: #### 4 96, 14515, 7600 #### [facility] of [address], [address] [place] [address] Sales Property Manager: Ck Wallis MD BUN/CREATININE RATIO NOT APPLICABLE Normal 6-22 [facility] Comment on above: Performed By: #### 4 96, 50719, 7600 #### [facility] of [address], [address] [place] [address] Sales Property Manager: Ck Wallis MD Calcium [Mass/Vol] 9.5 mg/dL Normal 8.6-10.3 [facility] Comment on above: Performed By: #### 4 96, 19345, 7600 #### [facility] of [address], [address] [place] [address] Sales Property Manager: Ck Wallis MD Chloride [Moles/Vol] 101 mmol/L Normal 98-110 [facility] Comment on above: Performed By: #### 4 96, 93281, 7600 #### [facility] of [address], [address] [place] [address] Sales Property Manager: Ck Wallis MD CO2 [Moles/Vol] 23 mmol/L Normal 20-32 [facility] Comment on above: Performed By: #### 4 96, 84535, 7600 #### [facility] of [place] [address] Sales Property Manager: Ck Wallis MD Creatinine [Mass/Vol] 0.99 mg/dL Normal 0.70-1.35 [facility] Comment on above: Performed By: #### 4 96, 84659, 0 #### [facility] [place] [address] Sales Property Manager: Ck Wallis MD GFR/1.73 sq M.predicted among non-blacks MDRD (S/P/Bld) [Vol rate/Area] 85 mL/min/{1.73_m2} Normal > OR = 60 [facility] Comment on above: Result Comment: The eGFR is based on the CKD-EPI 2020 equation. To calculate the new eGFR from a previous Creatinine or Cystatin C result, go to https://www.kidney.org/professionals/ kdoqi/gfr%5Fcalculator Performed By: #### 4 , , 0 #### [facility] [place] [address] Sales Property Manager: Ck Wallis MD Globulin (S) [Mass/Vol] 2.6 g/dL Normal 1.9-3.7 [facility] Comment on above: Performed By: #### 4 , 29283, 0 #### [facility] [place] [address] Sales Property Manager: Ck Wallis MD Glucose [Mass/Vol] 128 mg/dL High 65-99 [facility] Comment on above: Result Comment: Fasting reference interval For someone without known diabetes, a glucose value >125 mg/dL indicates that they may have diabetes and this should be confirmed with a follow-up test. Performed By: #### 4 96, 32505, 0 #### [facility] [place] [address] Sales Property Manager: Ck Walils MD Potassium [Moles/Vol] 4.0 mmol/L Normal 3.5-5.3 [facility] Comment on above: Performed By: #### 4 96, 76708, 7600 #### [facility] [place] [address] Sales Property Manager: Ck Wallis MD Protein [Mass/Vol] 7.0 g/dL Normal 6.1-8.1 [facility] Comment on above: Performed By: #### 4 96, 28863, 7600 #### [facility] [address], [address] [place] [address] Sales Property Manager: Ck Wallis MD Sodium [Moles/Vol] 136 mmol/L Normal 135-146 [facility] Comment on above: Performed By: #### 4 96, 38720, 7600 #### [facility] [address], [address] [place] [address] Sales Property Manager: Ck Wallis MD Urea nitrogen [Mass/Vol] 23 mg/dL Normal 7-25 [facility] Comment on above: Performed By: #### 4 96, , 0 #### [facility] [place] [address] Sales Property Manager: Ck Wallis MD HEMOGLOBIN A1con 03-17-2022 [...] for children. Performed By: #### 4 96, 20162, 0 #### [facility] [address], [address] [place] [address] Sales Property Manager: Ck Wallis MD LIPID PANEL, STANDARDon 03-03 Cholesterol [Mass/Vol] 247 mg/dL High <200 [facility] Comment on above: Order Comment: FASTI NG:YES FASTING: YES Performed By: #### 4 96, 50059, 7600 #### [facility] of [address], [address] [place] [address] Sales Property Manager: Ck Wallis MD Cholesterol in HDL [Mass/Vol] 39 mg/dL Low > OR = 40 [facility] Comment on above: Order Comment: FASTI NG:YES FASTING: YES Performed By: #### 4 96, 76606, 7600 #### [facility] [address], [address] [place] [address] Sales Property Manager: Ck Wallis MD Cholesterol.total/ Cholesterol in HDL [Mass ratio] 6.3 {ratio} High <5.0 [facility] Comment on above: Order Comment: FASTI NG:YES FASTING: YES Performed By: #### 4 96, 14153, 7600 #### [facility] [address], [address] [place] [address] Sales Property Manager: Ck Wallis MD LDL-CHOLESTEROL Normal [facility] [...] factors. LDL-C is now calculated using the Nathan-Cortez calculation, which is a validated novel method providing better accuracy than the Friedewald equation in the estimation of LDL-C. Nathan ARENAS et al. KETTY. 2013;310(19): 2045-6959 (http://education.PreApps.[employer]/faq/GLT597) Performed By: #### 4 96, 30071, 7600 #### [facility] [address], [address] [place] [address] Sales Property Manager: Ck Wallis MD NON HDL CHOLESTEROL 208 mg/dL (calc) High <130 [facility] Comment on above: Order Comment: FASTI NG:YES FASTING: YES Result Comment: For patients with diabetes plus 1 major ASCVD risk factor, treating to a non-HDL-C goal of <100 mg/dL (LDL-C of <70 mg/dL) is considered a therapeutic option. Performed By: #### 4 96, 70908, 7600 #### [facility] [address], [address] [place] [address] Sales Property Manager: Ck Wallis MD Triglyceride [Mass/Vol] 590 [...] Lipidol. 2015;9:129-169. Performed By: #### 4 96, 62452, 7600 #### [facility] [address], [address] [place] [address] Sales Property Manager: Ck Wallis MD US HARVEY DOP LEG RTon 12-20-19 US HARVEY DOP LEG RT Ultrasound venous du plex scan right lower extremity CLINICAL: Swelling and redness ankle. TECHNIQUE: Pettit-scale, color Doppler and Duplex examination of the [...] SAMI BRUNSON Date: 2021-12-19 09:12 Normal [facility] CBC AUTO DIFFon 12-18-2021 BASO # 0.0 103/ul Normal 0.0-0.1 [facility] Comment on above: Performed By: #### C BC #### [facility] [address] [place] [address] Dr. Cary Malagon Basophils/100 WBC (Bld) 0.3 % Normal 0.2-2.0 [facility] Comment on above: Performed By: #### C BC #### [facility] [address] [place] [address] Dr. Cary Malagon EO # 0.1 103/ul Normal 0.0-0.7 [facility] Comment on above: Performed By: #### C BC #### [facility] [address] [place] [address] Dr. Cary Malagon Eosinophils/100 WBC (Bld) 1.4 % Normal 0.9-7.0 [facility] Comment on above: Performed By: #### C BC #### [facility] [address] [place] [address] Dr. Cary Malagon Erythrocyte distribution width (RBC) [Ratio] 14.7 % Normal 11.0-15.0 [facility] Comment on above: Performed By: #### C BC #### [facility] [address] [place] [address] Dr. Cary Malagon Hematocrit (Bld) [Volume fraction] 37.7 % Critically low 42.0-54.0 [facility] Comment on above: Performed By: #### C BC #### [facility] [address] [place] [address] Dr. Cary Malagon Hemoglobin (Bld) [Mass/Vol] 12.8 g/dL Critically low 14.0-18.0 [facility] Comment on above: Performed By: #### C BC #### [facility] [address] [place] [address] Dr. Cary Malagon IG # 0.04 10e3/ul Critically high 0.00-0.03 [facility] Comment on above: Performed By: #### C BC #### [facility] [address] [place] [address] Dr. Cary Malagon IG % 0.4 % Normal 0.0-0.5 [facility] Comment on above: Performed By: #### C BC #### [facility] [address] [place] [address] Dr. Cary Malagon LYMPH # 1.4 103/ul Normal 1.2-3.8 [facility] Comment on above: Performed By: #### C BC #### [facility] [address] [place] [address] Dr. Cary Malagon Lymphocytes/100 WBC (Bld) 14.8 % Critically low 20.5-60.0 [facility] Comment on above: Performed By: #### C BC #### [facility] [address] [place] [address] Dr. Cary Malagon MANUAL DIFF REQ NO Normal [facility] Comment on above: Performed By: #### C BC #### [facility] [address] [place] [address] Dr. Cary Malagon MCH (RBC) [Entitic mass] 30.2 pg Normal 25.9-34.0 [facility] Comment on above: Performed By: #### C BC #### [facility] [address] [place] [address] Dr. Cary Malagon MCHC (RBC) [Mass/Vol] 34.0 g/dL Normal 29.9-35.2 [facility] Comment on above: Performed By: #### C BC #### [facility] [address] [place] [address] Dr. Cary Malagon MCV (RBC) [Entitic vol] 88.9 fL Normal 80.0-94.0 [facility] Comment on above: Performed By: #### C BC #### [facility] [address] [place] [address] Dr. Cary Malagon MONO # 1.0 103/ul Critically high 0.3-0.8 [facility] Comment on above: Performed By: #### C BC #### [facility] [address] [place] [address] Dr. Cary Malagon Monocytes/100 WBC (Bld) 10.8 % Normal 1.7-12.0 [facility] Comment on above: Performed By: #### C BC #### [facility] [address] [place] [address] Dr. Cary Malagon NEUT # 6.7 103/ul Critically high 1.4-6.5 [facility] Comment on above: Performed By: #### C BC #### [facility] [address] [place] [address] Dr. Cary Malagon Neutrophils/100 WBC (Bld) 72.3 % Normal 43.0-75.0 [facility] Comment on above: Performed By: #### C BC #### [facility] [address] [place] [address] Dr. Cary Malagon Platelet mean volume (Bld) [Entitic vol] 9.0 fL Critically low 9.5-13.5 [facility] Comment on above: Performed By: #### C BC #### [facility] [address] [place] [address] Dr. Cray Malagon PLT 242 103/ul Normal 150-450 [facility] Comment on above: Performed By: #### C BC #### [facility] [address] [place] [address] Dr. Cary Malagon RBC 4.24 106/ul Critically low 4.70-6.10 [facility] Comment on above: Performed By: #### C BC #### [facility] [address] [place] [address] Dr. Cary Malagon WBC 9.3 103/ul Normal 4.0-11.0 [facility] Comment on above: Performed By: #### C BC #### [facility] [address] [place] [address] Dr. Cary Malagon CULTURE BLOODon 12-18-2021 Microscopic examination of blood, culture Culture Observations: NO GROWTH AT 5 DAYS. Isolate 1 BC_BA_NA Normal [facility] Comment on above: Performed By: #### C BC #### [facility] [address] [place] [address] Dr. Cary Malagon D-DIMERon 12-18-2021 D-DIMER 3.78 mg/L FEU Critically high 0.19-0.50 [facility] Comment on above: Performed By: #### C MP #### [facility] [address] [place] [address] Dr. Cary Malagon D-DIMER COMMENTS SEE BELOW Normal [facility] Comment on above: Result Comment: Incr [...] hospitalization. Performed By: #### C MP #### [facility] [address] [place] [address] Dr. Cary Malagon PROF 14(COMP METB)on 022 Albumin [Mass/Vol] 3.4 g/dL Normal 3.4-5.0 [facility] Comment on above: Performed By: #### C MP #### [facility] [address] [place] [address] Dr. Cary Malagon Albumin/Globulin [Mass ratio] 0.9 {ratio} Normal [facility] Comment on above: Performed By: #### C MP #### [facility] [address] [place] [address] Dr. Cary Malagon ALP [Catalytic activity/Vol] 63 U/L Normal 46-116 [facility] Comment on above: Performed By: #### C MP #### [facility] [address] [place] [address] Dr. Cary Malagon ALT [Catalytic activity/Vol] 40 U/L Normal 16-63 [facility] Comment on above: Performed By: #### C MP #### [facility] [address] [place] [address] Dr. Cary Malagon Anion gap [Moles/Vol] 17.2 mmol/L Normal [facility] Comment on above: Performed By: #### C MP #### [facility] [address] [place] [address] Dr. Cary Malagon AST [Catalytic activity/Vol] 19 U/L Normal 15-37 [facility] Comment on above: Performed By: #### C MP #### [facility] [address] [place] [address] [address] Cary Malagon Bilirubin [Mass/Vol] 0.4 mg/dL Normal 0.2-1.3 [facility] Comment on above: Performed By: #### C MP #### [facility] [address] [place] [address] [address] Cary Malagon Calcium [Mass/Vol] 8.7 mg/dL Normal 8.5-10.1 [facility] Comment on above: Performed By: #### C MP #### [facility] [address] [place] [address] [address] Cary Malagon Chloride [Moles/Vol] 99 mmol/L Normal 98-107 [facility] Comment on above: Performed By: #### C MP #### [facility] [address] [place] [address] [address] Cary Malagon CO2 [Moles/Vol] 22.0 mmol/L Normal 22.0-30.0 [facility] Comment on above: Performed By: #### C MP #### [facility] [address] [place] [address] [address] Cary Malagon Creatinine [Mass/Vol] 1.26 mg/dL Critically high 0.66-1.25 [facility] Comment on above: Performed By: #### C MP #### [facility] [address] [place] [address] [address] Cary Malagon EGFR-AF AUSTRIAN >60 Normal >=60 [facility] Comment on above: Performed By: #### C MP #### [facility] [address] [place] [address] [address] Cary Malagon EGFR-NON AF AUSTRIAN 58 mL/min/1.73m2 Critically low >=60 [facility] Comment on above: Performed By: #### C MP #### [facility] [address] [place] [address] [address] Cary Malagon Globulin (S) [Mass/Vol] 3.9 g/dL Normal [facility] Comment on above: Performed By: #### C MP #### [facility] [address] [place] [address] [address] Cary Malagon Glucose [Mass/Vol] 272 mg/dL Critically high 74-106 [facility] Comment on above: Performed By: #### C MP #### [facility] [address] [place] [address] [address] Cary Malagon Potassium [Moles/Vol] 3.2 mmol/L Critically low 3.4-5.0 [facility] Comment on above: Performed By: #### C MP #### [facility] [address] [place] [address] [address] Cary Malagon Protein [Mass/Vol] 7.3 g/dL Normal 6.1-8.2 [facility] Comment on above: Performed By: #### C MP #### [facility] [address] [place] [address] [address] Cary Malagon Sodium [Moles/Vol] 135 mmol/L Critically low 137-145 [facility] Comment on above: Performed By: #### C MP #### [facility] [address] [place] [address] [address] Cary Malagon Urea nitrogen [Mass/Vol] 25.0 mg/dL Critically high 7.0-18.0 [facility] Comment on above: Performed By: #### C MP #### [facility] [address] [place] [address] [address] Cary Malagon Urea nitrogen/Creatinin e [Mass ratio] 19.8 mg/mg Normal [facility] Comment on above: Performed By: #### C MP #### [facility] [address] [place] [id number] Cary Malagon ALBUMIN, RANDOM URINE W/CREA Alan 12-12-2021 ALBUMIN, URINE 1.2 mg/dL Normal See Note: [facility] Comment on above: Result Comment: Refe rence Range: Reference Range Not established Performed By: #### 4 96, 73857, 6517, 8830 #### [facility] [address], [address] [place] [address] Sales Property Manager: Ck Wallis MD ALBUMIN/CREATININE RATIO, RANDOM [...] diagnostic category. Performed By: #### 4 96, 91498, 6517, 7600 #### [facility] [place] [address] Sales Property Manager: Ck Wallis MD Creatinine (U) [Mass/Vol] 112 mg/dL Normal 20-320 [facility] Comment on above: Performed By: #### 4 96, , 65, 7600 #### [facility] [place] [address] Sales Property Manager: Ck Wallis MD [facility] 12-12-2021 Albumin [Mass/Vol] 4.6 g/dL Normal 3.6-5.1 [facility] Comment on above: Performed By: #### 4 96, 06996, 65, 7600 #### [facility] [place] [address] Sales Property Manager: Ck Wallis MD Albumin/Globulin [Mass ratio] 1.7 {ratio} Normal 1.0-2.5 [facility] Comment on above: Performed By: #### 4 96, 27440, 65, 7600 #### [facility] [place] [address] Sales Property Manager: Ck Wallis MD ALP [Catalytic activity/Vol] 43 U/L Normal 35-144 [facility] Comment on above: Performed By: #### 4 96, 27957, 6517, 7600 #### [facility] [place] [address] Sales Property Manager: Ck Wallis MD ALT [Catalytic activity/Vol] 22 U/L Normal 9-46 [facility] Comment on above: Performed By: #### 4 96, 33208, 6517, 7600 #### [facility] of [place] [address] Sales Property Manager: Ck Wallis MD AST [Catalytic activity/Vol] 15 U/L Normal 10-35 [facility] Comment on above: Performed By: #### 4 96, 00118, 6517, 7600 #### [facility] [place] [address] Sales Property Manager: Ck Wallis MD Bilirubin [Mass/Vol] 0.5 mg/dL Normal 0.2-1.2 [facility] Comment on above: Performed By: #### 4 96, 99252, 65, 7600 #### [facility] [place] [address] Sales Property Manager: Ck Wallis MD BUN/CREATININE RATIO NOT APPLICABLE Normal 6-22 [facility] Comment on above: Performed By: #### 4 96, 88973, 65, 7600 #### [facility] [place] [address] Sales Property Manager: Ck Wallis MD Calcium [Mass/Vol] 9.3 mg/dL Normal 8.6-10.3 [facility] Comment on above: Performed By: #### 4 96, 81862, 6517, 7600 #### [facility] [place] [address] Sales Property Manager: Ck Wallis MD Chloride [Moles/Vol] 102 mmol/L Normal 98-110 [facility] Comment on above: Performed By: #### 4 96, 39230, 6517, 7600 #### [facility] [place] [address] Sales Property Manager: Ck Wallis MD CO2 [Moles/Vol] 27 mmol/L Normal 20-32 [facility] Comment on above: Performed By: #### 4 96, 50505, 6517, 7600 #### [facility] [place] [address] [place] [address] Sales Property Manager: Ck Wallis MD Creatinine [Mass/Vol] 1.05 mg/dL Normal 0.70-1.25 [facility] Comment on above: Result Comment: For patients >49 years of age, the reference limit for Creatinine is approximately 13% higher for people identified as -Greenlandic. Performed By: #### 4 96, , 65, 7600 #### [facility] [place] [address] Sales Property Manager: Ck Wallis MD eGFR NON-AFR. AUSTRIAN 75 mL/min/1.73m2 Normal > OR = 60 [facility] Comment on above: Performed By: #### 4 96, 70590, 65, 7600 #### [facility] [place] [address] Sales Property Manager: Ck Wallis MD GFR/1.73 sq M.predicted among blacks MDRD (S/P/Bld) [Vol rate/Area] 87 mL/min/{1.73_m2} Normal > OR = 60 [facility] Comment on above: Performed By: #### 4 , , 65, 7600 #### [facility] [place] [address] Sales Property Manager: Ck Wallis MD Globulin (S) [Mass/Vol] 2.7 g/dL Normal 1.9-3.7 [facility] Comment on above: Performed By: #### 4 , 94994, 6517, 7600 #### [facility] [place] [address] Sales Property Manager: Ck Wallis MD Glucose [Mass/Vol] 144 mg/dL High 65-99 [facility] Comment on above: Result Comment: Fasting reference interval For someone without known diabetes, a glucose value >125 mg/dL indicates that they may have diabetes and this should be confirmed with a follow-up test. Performed By: #### 4 96, 27238, 6517, 7600 #### [facility] [address] [place] [address] Sales Property Manager: Ck Wallis MD Potassium [Moles/Vol] 3.9 mmol/L Normal 3.5-5.3 [facility] Comment on above: Performed By: #### 4 , 84767, 65, 7600 #### [facility] [place] [address] Sales Property Manager: Ck Wallis MD Protein [Mass/Vol] 7.3 g/dL Normal 6.1-8.1 [facility] Comment on above: Performed By: #### 4 96, , 65, 7600 #### [facility] [place] [address] Sales Property Manager: Ck Wallis MD Sodium [Moles/Vol] 138 mmol/L Normal 135-146 [facility] Comment on above: Performed By: #### 4 , , 65, 7600 #### [facility] [place] [address] Sales Property Manager: Ck Wallis MD Urea nitrogen [Mass/Vol] 19 mg/dL Normal 7-25 [facility] Comment on above: Performed By: #### 4 96, 81204, 6517, 7600 #### [facility] [place] [address] Sales Property Manager: Ck Wallis MD HEMOGLOBIN A1con 12-12-2021 [...] for children. Performed By: #### 4 , 75107, 6517, 7600 #### [facility] of [address], [address] [place] [address] Sales Property Manager: Ck Wallis MD LIPID PANEL, [facility] 12-02 Cholesterol [Mass/Vol] 263 mg/dL High <200 [facility] Comment on above: Order Comment: FASTI NG:YES FASTING: YES Performed By: #### 4 96, 71897, 6517, 7600 #### [facility] [address], [address] [place] [address] Sales Property Manager: Ck Wallis MD Cholesterol in HDL [Mass/Vol] 46 mg/dL Normal > OR = 40 [facility] Comment on above: Order Comment: FASTI NG:YES FASTING: YES Performed By: #### 4 96, 41431, 6517, 7600 #### [facility] [address], [address] [place] [address] Sales Property Manager: Ck Wallis MD Cholesterol in LDL [...] LDL-C. Nathan ARENAS et al. KETTY. 2013;310(19): 6156-9723 (http://education.PreApps.[employer]/faq/BGY221) Performed By: #### 4 96, 54140, 6517, 7600 #### [facility] [address], [address] [place] [address] Sales Property Manager: Ck Wallis MD Cholesterol.total/ Cholesterol in HDL [Mass ratio] 5.7 {ratio} High <5.0 [facility] Comment on above: Order Comment: FASTI NG:YES FASTING: YES Performed By: #### 4 96, 62990, 6517, 7600 #### [facility] of [address], [address] [place] [address] Sales Property Manager: Ck Wallis MD NON HDL CHOLESTEROL 217 mg/dL (calc) High <130 [facility] Comment on above: Order Comment: FASTI NG:YES FASTING: YES Result Comment: For patients with diabetes plus 1 major ASCVD risk factor, treating to a non-HDL-C goal of <100 mg/dL (LDL-C of <70 mg/dL) is considered a therapeutic option. Performed By: #### 4 96, 07288, 6517, 7600 #### [facility] [address] [place] [address], [address] [place] [address] Sales Property Manager: Ck Wallis MD Triglyceride [Mass/Vol] 168 mg/dL High <150 [facility] Comment on above: Order Comment: FASTI NG:YES FASTING: YES Performed By: #### 4 96, 90455, 6517, 7600 #### [facility] [address], [address] [place] [address] Sales Property Manager: Ck Manjarrez 11-23-2021 [facility] [address] [place] [address] Office Visit Report Signed Patient Name: Tom Khan 0 Date of : 1955 Age/Sex: 66 / M Date of Service: Location: [facility] Behavioral Health Outpt Attending physician: Apolinar [...] Sunday where he told one of the mandaeism members to pray for him that he wanted to do himself and. The mandaeism member was alarmed and went to the plastic straightening roll operator who is meeting with the board and inform them of what was going on. Patient was assessed at ED and renewed mind. They also talked with Richie at [facility]. He does not feel like he is [...] Violent Behavior No Current/Previous Provider Psychiatrist: Dr. Shai Farfan MD Therapist: TI Harrington Visit Details Total time (minutes): 50 Dictated By: TI Harrington 11/23/211539 Signed By: 11/23/211548 Cosigned By (if applicable): [id number] cc: TI Harrington Normal [facility] Acetaminophenon 11-20-2021 Acetaminophen [Mass/Vol] ug/mL Normal 0.0-30.0 [facility] Comment on above: Performed By: #### C BC, ALCBLD, CMP, TSHRFLX, UDS, ALYSSA, ACET #### [address] [address] Acetaminophen level (mass/vo lume)on 11-20-2021 Acetaminophen (Unsp spec) [Mass/Vol] < 10.0 mcg/mL 0.0-30.0 [facility] Work Phone: Albumin measurement (mass/vo lume)on 11-20-2021 Albumin (Unsp spec) [Mass/Vol] 4.8 g/dL 3.5-5.0 [facility] Work Phone: Alcohol Bloodon 11-20-2021 Alcohol Blood < 10.00 Normal 0.0-10.00 [facility] Comment on above: Performed By: #### C BC, ALCBLD, CMP, TSHRFLX, UDS, ALYSSA, ACET #### [facility] [address] [address] Amphetamine Screen Ql (U)on 11-20-2021 Amphetamines Ql (U) Negative Negative [facility] Work Phone: Bacteria detection in urine sediment by light microscopyon 11-20-2021 Bacteria LM Ql (Urine sed) Trace [facility] Work Phone: Basophil percentageon 2021 Hemoglobin (Bld) [Mass/Vol] 14.5 g/dL 13.8-17.8 [facility] Work Phone: Basophils Auto (Bld) [#/Vol] on 11-20-2021 Basophils (Bld) [#/Vol] 0.0859 10*3/uL 0.0-0.3 [facility] Work Phone: Basophils/100 WBC Auto (Bld) on 11-20-2021 Basophils/100 WBC (Bld) 1.039 % 0.0-3.0 [facility] Work Phone: Benzodiazepines Screen Ql (U )on 11-20-2021 Benzodiazepines Ql (U) Negative Negative [facility] Work Phone: Blood anion gapon 11-20-2021 Anion gap (Bld) [Moles/Vol] 14.5 mmol/L [facility] Work Phone: Blood erythrocytes count (nu mber/volume)on 11-20-2021 RBC (Bld) [#/Vol] 4.81 10*6/uL 4.70-6.10 [facility] Work Phone: Blood leukocytes count (numb er/volume)on 11-20-2021 WBC (Bld) [#/Vol] 8.3 Thou/mL3 4.8-10.8 [facility] Work Phone: Blood platelet counton 11-20 Platelets (Bld) [#/Vol] 301.2 Thou/mm3 130-400 [facility] Work Phone: Blood total protein measurem enton 11-20-2021 Protein [Mass/Vol] 8.0 g/dL 6.3-8.2 [facility] Work Phone: Calcium measurement (mass/vo lume)on 11-20-2021 Calcium (Unsp spec) [Mass/Vol] 9.4 mg/dL 8.4-10.2 [facility] Work Phone: Chloride measurement (mass/v olume)on 11-20-2021 Chloride (Unsp spec) [Mass/Vol] 103 mmol/L 98-120 [facility] Work Phone: Cocaine Screen Ql (U)on 11-02 Cocaine Ql (U) Negative Negative [facility] Work Phone: Complete Blood Count Auto Di ffon 11-20-2021 Basophils Absolute Auto 0.0859 Normal 0.0-0.3 [facility] Acute Comment on above: Performed By: #### C BC, ALCBLD, CMP, TSHRFLX, UDS, ALYSSA, ACET #### [facility] [address] [place], [place] [address] Basophils Percent Auto 1.039 Normal 0.0-3.0 [facility] Acute Comment on above: Performed By: #### C BC, ALCBLD, CMP, TSHRFLX, UDS, ALYSSA, ACET #### [facility] [address] [place], [place] [address] Eosinophils Absolute Auto 0.0993 Normal 0.0-1.1 [facility] Acute Comment on above: Performed By: #### C BC, ALCBLD, CMP, TSHRFLX, UDS, ALYSSA, ACET #### [facility] [address] [place], [place] [address] Eosinophils Percent Auto 1.201 Normal 0.0-10.0 [facility] Acute Comment on above: Performed By: #### C BC, ALCBLD, CMP, TSHRFLX, UDS, ALYSSA, ACET #### [address] [address] Erythrocyte distribution width (RBC) [Ratio] 13.5 % Normal 10.0-15.5 [facility] Acute Comment on above: Performed By: #### C BC, ALCBLD, CMP, TSHRFLX, UDS, ALYSSA, ACET #### [address] [address] Hematocrit (Bld) [Volume fraction] 44.0 % Normal 42.0-52.0 [facility] Acute Comment on above: Performed By: #### C BC, ALCBLD, CMP, TSHRFLX, UDS, ALYSSA, ACET #### [address] [address] Hemoglobin (Bld) [Mass/Vol] 14.5 g/dL Normal 13.8-17.8 [facility] Acute Comment on above: Performed By: #### C BC, ALCBLD, CMP, TSHRFLX, UDS, ALYSSA, ACET #### [address] [address] Lymphocytes Absolute Auto 1.802 Normal 1.0-5.5 [facility] Acute Comment on above: Performed By: #### C BC, ALCBLD, CMP, TSHRFLX, UDS, ALYSSA, ACET #### [address] [address] Lymphocytes Percent Auto 21.80 Normal 20-51.1 [facility] Acute Comment on above: Performed By: #### C BC, ALCBLD, CMP, TSHRFLX, UDS, ALYSSA, ACET #### [address] [address] MCH (RBC) [Entitic mass] 30.1 pg Normal 28.5-32.5 [facility] Acute Comment on above: Performed By: #### C BC, ALCBLD, CMP, TSHRFLX, UDS, ALYSSA, ACET #### [address] [address] MCV (RBC) [Entitic vol] 91.3 fL Normal 80.0-94.0 [facility] Acute Comment on above: Performed By: #### C BC, ALCBLD, CMP, TSHRFLX, UDS, ALYSSA, ACET #### [address] [address] Mean Corpuscular HGB Conc 33.0 g/dL Normal 32.0-37.0 [facility] Acute Comment on above: Performed By: #### C BC, ALCBLD, CMP, TSHRFLX, UDS, ALYSSA, ACET #### [address] [address] Monocytes Absolute Auto 0.6828 Normal 0.1-1.0 [facility] Acute Comment on above: Performed By: #### C BC, ALCBLD, CMP, TSHRFLX, UDS, ALYSSA, ACET #### [address] [place] [address] Monocytes Percent Auto 8.261 Normal 1.7-9.3 [facility] Acute Comment on above: Performed By: #### C BC, ALCBLD, CMP, TSHRFLX, UDS, ALYSSA, ACET #### [address] [address] Neutrophils Absolute Auto 5.595 Normal 2.0-8.1 [facility] Acute Comment on above: Performed By: #### C BC, ALCBLD, CMP, TSHRFLX, UDS, ALYSSA, ACET #### [address] [address] Neutrophils Percent Auto 67.70 Normal 42.2-75.2 [facility] Acute Comment on above: Performed By: #### C BC, ALCBLD, CMP, TSHRFLX, UDS, ALYSSA, ACET #### [address] [address] Platelet Count 301.2 Thou/mm3 Normal 130-400 [facility] Acute Comment on above: Performed By: #### C BC, ALCBLD, CMP, TSHRFLX, UDS, ALYSSA, ACET #### [address] [address] RBC (Bld) [#/Vol] 4.81 10*6/uL Normal 4.70-6.10 [facility] Acute Comment on above: Performed By: #### C BC, ALCBLD, CMP, TSHRFLX, UDS, ALYSSA, ACET #### [address] [address] White Blood Count 8.3 Thou/mL3 Normal 4.8-10.8 [facility] Acute Comment on above: Performed By: #### C BC, ALCBLD, CMP, TSHRFLX, UDS, ALYSSA, ACET #### [address] [address] Comprehensive Metabolic Pane néstor 11-20-2021 Anion gap [Moles/Vol] 14.5 mmol/L Normal [facility] Acute Comment on above: Performed By: #### C BC, ALCBLD, CMP, TSHRFLX, UDS, ALYSSA, ACET #### [address] [address] Alanine Aminotransferase V 33 units/L Normal 4-50 [facility] Acute Comment on above: Performed By: #### C BC, ALCBLD, CMP, TSHRFLX, UDS, ALYSSA, ACET #### [address] [address] Albumin [Mass/Vol] 4.8 g/dL Normal 3.5-5.0 [facility] Acute Comment on above: Performed By: #### C BC, ALCBLD, CMP, TSHRFLX, UDS, ALYSSA, ACET #### [address] [address] Albumin Globulin Ratio 1.5 g/dL Normal [facility] Acute Comment on above: Performed By: #### C BC, ALCBLD, CMP, TSHRFLX, UDS, ALYSSA, ACET #### [address] [address] Alkaline Phosphatase 53 units/L Normal 38-126 [facility] Acute Comment on above: Performed By: #### C BC, ALCBLD, CMP, TSHRFLX, UDS, ALYSSA, ACET #### [address] [address] Aspartate Amino Transferase 25 units/L Normal 17-59 [facility] Acute Comment on above: Performed By: #### C BC, ALCBLD, CMP, TSHRFLX, UDS, ALYSSA, ACET #### [address] [address] Bilirubin [Mass/Vol] 0.5 mg/dL Normal 0.2-1.3 [facility] Acute Comment on above: Performed By: #### C BC, ALCBLD, CMP, TSHRFLX, UDS, ALYSSA, ACET #### [address] [address] Calcium [Mass/Vol] 9.4 mg/dL Normal 8.4-10.2 [facility] Acute Comment on above: Performed By: #### C BC, ALCBLD, CMP, TSHRFLX, UDS, ALYSSA, ACET #### [address] [address] Chloride [Moles/Vol] 103 mmol/L Normal 98-120 [facility] Acute Comment on above: Performed By: #### C BC, ALCBLD, CMP, TSHRFLX, UDS, ALYSSA, ACET #### [address] [address] CO2 [Moles/Vol] 22 mmol/L Normal 22-31 [facility] Acute Comment on above: Performed By: #### C BC, ALCBLD, CMP, TSHRFLX, UDS, ALYSSA, ACET #### [address] [address] Creatinine [Mass/Vol] 1.0 mg/dL Normal 0.7-1.3 [facility] Acute Comment on above: Performed By: #### C BC, ALCBLD, CMP, TSHRFLX, UDS, ALYSSA, ACET #### [address] [address] Creatinine Clr Calc Pharmacy [phone] Normal [facility] Acute Comment on above: Performed By: #### C BC, ALCBLD, CMP, TSHRFLX, UDS, ALYSSA, ACET #### [address] [address] Globulin (S) [Mass/Vol] 3.3 g/dL Normal [facility] Acute Comment on above: Performed By: #### C BC, ALCBLD, CMP, TSHRFLX, UDS, ALYSSA, ACET #### [address] [address] Glomerular Filtration Rate > 60.0 Normal [facility] Acute Comment on above: Performed By: #### C BC, ALCBLD, CMP, TSHRFLX, UDS, ALYSSA, ACET #### [address] [address] Glucose [Mass/Vol] 138 mg/dL High 75-110 [facility] Acute Comment on above: Performed By: #### C BC, ALCBLD, CMP, TSHRFLX, UDS, ALYSSA, ACET #### [address] [address] Potassium [Moles/Vol] 3.5 mmol/L Low 3.6-5.0 [facility] Acute Comment on above: Performed By: #### C BC, ALCBLD, CMP, TSHRFLX, UDS, ALYSSA, ACET #### [address] [address] Protein [Mass/Vol] 8.0 g/dL Normal 6.3-8.2 [facility] Acute Comment on above: Performed By: #### C BC, ALCBLD, CMP, TSHRFLX, UDS, ALYSSA, ACET #### [address] [address] Sodium [Moles/Vol] 136 mmol/L Normal 135-145 [facility] Acute Comment on above: Performed By: #### C BC, ALCBLD, CMP, TSHRFLX, UDS, ALYSSA, ACET #### [address] [address] Urea nitrogen [Mass/Vol] 21 mg/dL High 9-20 [facility] Acute Comment on above: Performed By: #### C BC, ALCBLD, CMP, TSHRFLX, UDS, ALYSSA, ACET #### [address] [address] Drug Screen Urineon 11-21-19 22 Amphetamine Screen Urine Negative Normal Negative [facility] Acute Comment on above: Performed By: #### C BC, ALCBLD, CMP, TSHRFLX, UDS, ALYSSA, ACET #### [address] [address] Benzodiazepines Screen Urine Negative Normal Negative [facility] Acute Comment on above: Performed By: #### C BC, ALCBLD, CMP, TSHRFLX, UDS, ALYSSA, ACET #### [address] [address] Cannabinoid Screen Urine Negative Normal Negative [facility] Acute Comment on above: Performed By: #### C BC, ALCBLD, CMP, TSHRFLX, UDS, ALYSSA, ACET #### [address] [address] Cocaine Screen Urine Negative Normal Negative [facility] Acute Comment on above: Performed By: #### C BC, ALCBLD, CMP, TSHRFLX, UDS, ALYSSA, ACET #### [address] [address] Opiate Screen Urine Negative Normal Negative [facility] Acute Comment on above: Performed By: #### C BC, ALCBLD, CMP, TSHRFLX, UDS, ALYSSA, ACET #### [address] [address] Oxycodone Urine Negative Normal Negative [facility] Acute Comment on above: Result Comment: [...] ALCBLD, CMP, TSHRFLX, UDS, ALYSSA, ACET #### [address] [address] Phencyclidine Screen Urine Negative Normal Negative [facility] Acute Comment on above: Performed By: #### C BC, ALCBLD, CMP, TSHRFLX, UDS, ALYSSA, ACET #### [address] [address] Tricyclic Antidepressant Urine Negative Normal Negative [facility] Acute Comment on above: Performed By: #### C BC, ALCBLD, CMP, TSHRFLX, UDS, ALYSSA, ACET #### [address] [address] Urine Barbiturate Screen Negative Normal Negative [facility] Acute Comment on above: Performed By: #### C BC, ALCBLD, CMP, TSHRFLX, UDS, ALYSSA, ACET #### [facility] [address] [place], [place] [address] Eosinophils Auto (Bld) [#/Vo l]on 11-20-2021 Eosinophils (Bld) [#/Vol] 0.0993 10*3/uL 0.0-1.1 [facility] Work Phone: Eosinophils/100 WBC Auto (Bl d)on 11-20-2021 Eosinophils/100 WBC (Bld) 1.201 % 0.0-10.0 [facility] Work Phone: Erythrocyte distribution wid th Auto (RBC) [Ratio]on 11-20-2021 Erythrocyte distribution width (RBC) [Ratio] 13.5 % 10.0-15.5 [facility] Work Phone: Glomerular filtration rate ( GFR) estimation/1.73 sq m using serum, plasma, or whole bon 11-20-2021 GFR/1.73 sq M.predicted CKD-EPI (S/P/Bld) [Vol rate/Area] > 60.0 [facility] Work Phone: Laboratory - Chemistry and C hemistry - challengeon 11-20-2021 pH (U) 6.0 [pH] 5.0-8.5 [facility] Work Phone: Laboratory - Hematology and Cell countson 11-20-2021 Hemoglobin Ql (U) Negative Negative [facility] Work Phone: Lymphocytes (Bld) [#/Vol] 1.802 10*3/uL 1.0-5.5 [facility] Work Phone: Neutrophils (Bld) [#/Vol] 5.595 10*3/uL 2.0-8.1 [facility] Work Phone: Laboratory - Urinalysison Crystals LM Nom (Urine sed) Absent [facility] Work Phone: MCH Auto (RBC) [Entitic mass ]on 11-20-2021 MCH (RBC) [Entitic mass] 30.1 pg 28.5-32.5 [facility] Work Phone: MCHC Auto (RBC) [Mass/Vol]on 11-20-2021 MCHC (RBC) [Mass/Vol] 33.0 g/dL 32.0-37.0 [facility] Work Phone: MCV (mean corpuscular volume ) determinationon 11-20-2021 MCV (RBC) [Entitic vol] 91.3 fL 80.0-94.0 [facility] Work Phone: Monocytes Auto (Bld) [#/Vol] on 11-20-2021 Monocytes (Bld) [#/Vol] 0.6828 10*3/uL 0.1-1.0 [facility] Work Phone: Monocytes/100 WBC Auto (Bld) on 11-20-2021 Monocytes/100 WBC (Bld) 8.261 % 1.7-9.3 [facility] Work Phone: Mucus LM Ql (Urine sed)on Mucus Ql (Urine sed) Absent [facility] Work Phone: Neutrophils/100 WBC Auto (Bl d)on 11-20-2021 Neutrophils/100 WBC (Bld) 67.70 % 42.2-75.2 [facility] Work Phone: Nitrite Test strip Ql (U)on 11-20-2021 Nitrite Ql (U) Negative Negative [facility] Work Phone: No Panel Informationon 11-20 Urine Casts Absent [facility] Work Phone: Urine RBC Absent 0-2 [facility] Work Phone: Lymphocytes (%) (Auto) 21.80 20-51.1 [facility] Work Phone: Pharmacy Creatinine Clearance (Chem [phone] [facility] Work Phone: Plasma/Serum Blood Alcohol < 10.00 mg/dL 0.0-10.00 [facility] Work Phone: Phencyclidine Screen Ql (U)o n 11-20-2021 Phencyclidine Ql (U) Negative Negative [facility] Work Phone: Salicylateon 11-20-2021 Salicylate < 1.0 Normal 0-20 [facility] Acute Comment on above: Performed By: #### C BC, ALCBLD, CMP, TSHRFLX, UDS, ALYSSA, ACET #### [facility] [address] [address] Screening urine barbiturate detectionon 11-20-2021 Barbiturates Screen Ql (U) Negative Negative [facility] Work Phone: Screening urine opiates dete ctionon 11-20-2021 Opiates Screen Ql (U) Negative Negative [facility] Work Phone: Serum creatinine measurement (mass/volume)on 11-20-2021 Creatinine [Mass/Vol] 1.0 mg/dL 0.7-1.3 [facility] Work Phone: Serum globulin measurement ( mass/volume)on 11-20-2021 Globulin (S) [Mass/Vol] 3.3 g/dL [facility] Work Phone: Serum or plasma alanine riley otransferase measurement (enzymatic activity/volume)on 11-20-2021 ALT [Catalytic activity/Vol] 25 units/L 17-59 [facility] Work Phone: ALT [Catalytic activity/Vol] 33 units/L 4-50 [facility] Work Phone: Serum or plasma albumin/glob ulin mass ratioon 11-20-2021 Albumin/Globulin [Mass ratio] 1.5 g/dL [facility] Work Phone: Serum or plasma alkaline dom sphatase measurementon 11-20-2021 ALP [Catalytic activity/Vol] 53 units/L 38-126 [facility] Work Phone: Serum or plasma bilirubin me asurement (mass/volume)on 11-20-2021 Bilirubin [Mass/Vol] 0.5 mg/dL 0.2-1.3 [facility] Work Phone: Serum or plasma carbon dioxi de measurement (moles/volume)on 11-20-2021 CO2 [Moles/Vol] 22 mmol/L 22-31 [facility] Work Phone: Serum or plasma glucose carol urement (mass/volume)on 11-20-2021 Glucose [Mass/Vol] 138 mg/dL High 75-110 [facility] Work Phone: Serum or plasma salicylates detectionon 11-20-2021 Salicylates Ql < 1.0 mg/dL 0-20 [facility] Work Phone: Serum or plasma thyroid stim ulating hormone (TSH) measurementon 11-20-2021 TSH Qn 0.65 mIU/mL 0.49-4.67 [facility] Work Phone: Serum or plasma urea nitroge n measurement (mass/volume)on 11-20-2021 Urea nitrogen [Mass/Vol] 21 mg/dL High 9-20 [facility] Work Phone: Serum, plasma, or blood pota ssium measurement (moles/volume)on 11-20-2021 Potassium (S/P/Bld) [Moles/Vol] 3.5 mmol/L Low 3.6-5.0 [facility] Work Phone: Serum, plasma, or whole bloo d sodium measurement (moles/volume)on 11-20-2021 Sodium (S/P/Bld) [Moles/Vol] 136 mmol/L 135-145 [facility] Work Phone: Squamous epithelial cells de tection in urine sediment by light microscopyon 11-20-2021 Epithelial cells.squamous LM Ql (Urine sed) 0-2 [facility] Work Phone: TSH with FT4 reflexon 2021 TSH with FT4 reflex 0.65 mIU/mL Normal 0.49-4.67 [facility] Acute Comment on above: Performed By: #### C BC, ALCBLD, CMP, TSHRFLX, UDS, ALYSSA, ACET #### [facility] [address] [address] Urinalysis and Microscopicon 11-20-2021 Bacteria Urine Trace Normal [facility] Acute Comment on above: Performed By: #### U AMIC #### [facility] [address] [address] Casts Urine Absent Normal [facility] Acute Comment on above: Performed By: #### U AMIC #### [facility] [address] [address] Mucus Urine Absent Normal [facility] Acute Comment on above: Performed By: #### U AMIC #### [facility] [address] [address] Trichomonas Urine Absent Normal [facility] Acute Comment on above: Performed By: #### U AMIC #### [facility] [address] [address] Urine Red Blood Cells Absent Normal 0-2 [facility] Acute Comment on above: Performed By: #### U AMIC #### [facility] [address] [place], [place] [address] Urine White Blood Cells Absent Normal 0-4 [facility] Acute Comment on above: Performed By: #### U AMIC #### [facility] [address] [address] Yeast Urine Absent Normal [facility] Acute Comment on above: Performed By: #### U AMIC #### [facility] [address] [address] Crystals Urine Absent Normal [facility] Acute Comment on above: Performed By: #### U AMIC #### [facility] [address] [address] Squamous Epithelial Cell Urine 0-2 [facility] Acute Comment on above: Performed By: #### U AMIC #### [facility] [address] [address] Clarity (U) Clear Normal Clear [facility] Acute Comment on above: Performed By: #### U AMIC #### [facility] [address] [address] Color (U) Yellow Normal Yellow [facility] Acute Comment on above: Performed By: #### U AMIC #### [facility] [address] [place], [place] [address] Bilirubin Urine Negative Normal Negative [facility] Acute Comment on above: Performed By: #### U AMIC #### [facility] [address] [place], [place] [address] Blood Urine Negative Normal Negative [facility] Acute Comment on above: Performed By: #### U AMIC #### [facility] [address] [place], [place] [address] Glucose Urine UA Negative Normal Negative [facility] Acute Comment on above: Performed By: #### U AMIC #### [facility] [address] [place], [place] [address] Ketones Ql (U) Negative Normal Negative [facility] Acute Comment on above: Performed By: #### U AMIC #### [facility] [address] [place], [place] [address] Leukocyte esterase Test strip Ql (U) Negative Normal Negative [facility] Acute Comment on above: Performed By: #### U AMIC #### [facility] [address] [place], [place] [address] Nitrite Urine Negative Normal Negative [facility] Acute Comment on above: Performed By: #### U AMIC #### [facility] [address] [place], [place] [address] pH (U) 6.0 [pH] Normal 5.0-8.5 [facility] Acute Comment on above: Performed By: #### U AMIC #### [facility] [address] [place], [place] [address] Specific [place] Urine 1.025 mg/dL Normal 1.005-1.030 [facility] Acute Comment on above: Performed By: #### U AMIC #### [facility] [address] [place], [place] [address] Urine Protein Dip Trace Normal Negative [facility] Acute Comment on above: Performed By: #### U AMIC #### [facility] [address] [place], [place] [address] Urobilinogen Urine 0.2 mg/dL Normal 0.2-1.0 [facility] Acute Comment on above: Performed By: #### U AMIC #### [facility] [address] [place], [place] [address] Urine Trichomonas species de tection by light microscopyon 11-20-2021 Trichomonas sp LM Ql (U) Absent [facility] Work Phone: Urine cannabinoids detection by screening methodon 11-20-2021 Cannabinoids Screen Ql (U) Negative Negative [facility] Work Phone: Urine clarityon 11-20-2021 Clarity (U) Clear Clear [facility] Work Phone: Urine coloron 11-20-2021 Color (U) Yellow Yellow [facility] Work Phone: Urine glucose detectionon Glucose Ql (U) Negative Negative [facility] Work Phone: Urine ketones detectionon Ketones Ql (U) Negative Negative [facility] Work Phone: Urine leukocyte esterase det ection by automated test stripon 11-20-2021 Leukocyte esterase Auto test strip Ql (U) Negative Negative [facility] Work Phone: Urine leukocytes detection b y microscopyon 11-20-2021 WBC Visual Ql (U) Absent 0-4 [facility] Work Phone: Urine oxycodone measurement by confirmatory method (mass/volume)on 11-20-2021 oxyCODONE Confirm (U) [Mass/Vol] Negative Negative [facility] Work Phone: Comment on above: Screening [...] test strip Ql (U) Trace mg/dL Negative [facility] Work Phone: Urine specific gravity measu rementon 11-20-2021 Specific gravity (U) [Rel density] 1.025 mg/dL 1.005-1.030 [facility] Work Phone: Urine total bilirubin detect ionon 11-20-2021 Bilirubin Ql (U) Negative Negative [facility] Work Phone: Urine tricyclic antidepressa nt measurementon 11-20-2021 Tricyclic antidepressants (U) [Mass/Vol] Negative Negative [facility] Work Phone: Urine urobilinogen measureme nton 11-20-2021 Urobilinogen Ql (U) 0.2 mg/dL 0.2-1.0 [facility] Work Phone: Urine yeast-like organism de tectionon 11-20-2021 Fungi.yeastlike LM Ql (Urine sed) Absent [facility] Work Phone: Whole blood hematocriton Hematocrit (Bld) [Volume fraction] 44.0 % 42.0-52.0 [facility] Work Phone: A.OFFVISon 11-10-2021 A.OFFVIS [facility] [address] [place], [place] [phone] Office Visit Report Signed Patient Name: Tom Khan 0 Date of : 1955 Age/Sex: 66 / M Date of Service: Location: [facility] Behavioral Health Outpt Attending physician: Karen Sotelo MONEY COUNTER Intake Vital Signs 11/10/21 14:42 Height 5 [...] History of Sexual Abuse: No 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 Normal [facility] Loki 10-31-2021 ADIOR [facility] [address] [place] [phone] Office Visit Report Signed Patient Name: Tom Khan 0 Date of : 1955 Age/Sex: 66 / M Date of Service: Location: [facility] Behavioral Health Outpt Attending physician: Apolinar [...] occasion. 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 He has a couple of things he is looking forward to and that is the establishment of meant of a men's group at [employer] and that seems positive for him. A couple of times during session he would report I'm still thinking about the 'F 'word and therapist reminded him that we were not going to discuss that and patient was able to move on. While it was still obviously in his thoughts he was able to refrain from that discussion. So encouraging him to explore some mcc options for productivity and activity. Listened and supported. Psychiatric visit total time minutes: 50 Psychiatric History Previous inpatient psychiatric hospitalization: Yes Previous Psychiatric Treatment Programs: Partial Hospital Program, Inpatient Program, Intensive Outpatient Prog and Outpatient Violent Behavior No Current/Previous Provider Psychiatrist: Shai Farfan MD Therapist: TI Harrington Visit Details [...] Signed By: 10/31/211655 Cosigned By (if applicable): [id number] cc: TI Harrington [facility] Loki 10-19-2021 KASEY [facility] [address] [place] [phone] Office Visit Report Signed Patient Name: Tom Khan 0 Date of : 1955 Age/Sex: 66 / M Date of Service: Location: [facility] Behavioral Health Outpt Attending physician: Shai Farfan MD Intake Vital Signs 10/19/21 10:45 [...] Medication List - Last Reconciled 10/19/21 by Shai Farfan MD amlodipine 5 mg tablet 5 [...] History of Sexual Abuse: No 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 Normal [facility] BetsyJENNIFERAmita 10-03-2021 A.OFFTALISHA [facility] [address] [place], [place] [phone] Office Visit Report Signed Patient Name: Tom Khan 0 Date of : 1955 Age/Sex: 66 / M Date of Service: Location: [facility] Behavioral Health Outpt Attending physician: Apolinar [...] what he would like to do for mcc and to enjoy mcc. 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 Normal [facility] Covid-19 PCR (CVDTBH)on SARS-CoV-2 (COVID-19) RNA JOSE+probe Ql (Unsp spec) Not detected Normal NOT DETECTED [facility] Comment on above: Result Comment: This test is not yet approved or cleared by the [place] FDA. When there are no FDA-approved or cleared tests available, and other criteria are met, FDA can make tests available under an emergency access mechanism called an Emergency Use Authorization (EUA). The EUA for this test is supported by the [place] of Health and Human Service's (HHS's) declaration [...] with SARS-CoV-2. Performed By: #### C #### [facility] [address] [address] [address] Cary Malagon P.PN.PSJak 08-05-2021 [place] [address] Progress Note Signed Patient Name: Tom Khan 0 Date of : 1955 Age/Sex: 65 / M Location: [facility] Partial Attending physician: Gilles Farfan MD Subjective Subjective Date of exam: 08/05/21 Subjective Narrative: Tom is seen along with his Jaci today for follow-up in [facility]. He has been in the program [...] when not here. Dictated By: DMITRY Brice 08/05/21 1631 Signed By: 08/05/21 1635 Cosigned By (if applicable): [id number] cc: Joslyn Connolly, PRODUCT/DEVICE TECHNOLOGIST Normal [facility] COMPREHENSIVE METABOLIC PANE Néstor 08-04-2021 Albumin [Mass/Vol] 4.7 g/dL Normal 3.6-5.1 [facility] Comment on above: Performed By: #### 1 0231, 7600 #### [facility] of [address], [address] [place] [address] Sales Property Manager: Ck aWllis MD Albumin/Globulin [Mass ratio] 1.5 {ratio} Normal 1.0-2.5 [facility] Comment on above: Performed By: #### 1 0231, 7600 #### [facility] of [address], [address] [place] [address] Sales Property Manager: Ck Wallis MD ALP [Catalytic activity/Vol] 39 U/L Normal 35-144 [facility] Comment on above: Performed By: #### 1 0231, 7600 #### [facility] [address], [address] [place] [address] Sales Property Manager: Ck Wallis MD ALT [Catalytic activity/Vol] 39 U/L Normal 9-46 [facility] Comment on above: Performed By: #### 1 0231, 7600 #### [facility] [address], [address] [place] [address] Sales Property Manager: Ck Wallis MD AST [Catalytic activity/Vol] 29 U/L Normal 10-35 [facility] Comment on above: Performed By: #### 1 0231, 7600 #### [facility] [address], [address] [place] [address] Sales Property Manager: Ck Wallis MD Bilirubin [Mass/Vol] 0.3 mg/dL Normal 0.2-1.2 [facility] Comment on above: Performed By: #### 1 0231, 7600 #### [facility] of [address], [address] [place] [address] Sales Property Manager: Ck Wallis MD BUN/CREATININE RATIO NOT APPLICABLE Normal 6-22 [facility] Comment on above: Performed By: #### 1 230, 7600 #### [facility] [place] [address] Sales Property Manager: Ck Wallis MD Calcium [Mass/Vol] 9.6 mg/dL Normal 8.6-10.3 [facility] Comment on above: Performed By: #### 1 230, 7600 #### [facility] [place] [address] Sales Property Manager: Ck Wallis MD Chloride [Moles/Vol] 101 mmol/L Normal 98-110 [facility] Comment on above: Performed By: #### 1 023, 7600 #### [facility] [place] [address] Sales Property Manager: Ck Wallis MD CO2 [Moles/Vol] 27 mmol/L Normal 20-32 [facility] Comment on above: Performed By: #### 1 023, 7600 #### [facility] [place] [address] Sales Property Manager: Ck Wallis MD Creatinine [Mass/Vol] 1.00 mg/dL Normal 0.70-1.25 [facility] Comment on above: Result Comment: For patients >49 years of age, the reference limit for Creatinine is approximately 13% higher for people identified as -Greenlandic. Performed By: #### 1 230, 7600 #### [facility] [place] [address] Sales Property Manager: Ck Wallis MD eGFR NON-AFR. AUSTRIAN 80 mL/min/1.73m2 Normal > OR = 60 [facility] Comment on above: Performed By: #### 1 023, 7600 #### [facility] [place] [address] Sales Property Manager: Ck Wallis MD GFR/1.73 sq M.predicted among blacks MDRD (S/P/Bld) [Vol rate/Area] 92 mL/min/{1.73_m2} Normal > OR = 60 [facility] Comment on above: Performed By: #### 1 230, 7600 #### [facility] [place] [address] Sales Property Manager: Ck Wallis MD Globulin (S) [Mass/Vol] 3.1 g/dL Normal 1.9-3.7 [facility] Comment on above: Performed By: #### 1 230, 7600 #### [facility] [place] [address] Sales Property Manager: Ck Wallis MD Glucose [Mass/Vol] 135 mg/dL High 65-99 [facility] Comment on above: Result Comment: Fasting reference interval For someone without known diabetes, a glucose value >125 mg/dL indicates that they may have diabetes and this should be confirmed with a follow-up test. Performed By: #### 1 230, 0 #### [facility] [place] [address] Sales Property Manager: Ck Wallis MD Potassium [Moles/Vol] 3.9 mmol/L Normal 3.5-5.3 [facility] Comment on above: Performed By: #### 1 230, 7600 #### [facility] [place] [address] Sales Property Manager: Ck Wallis MD Protein [Mass/Vol] 7.8 g/dL Normal 6.1-8.1 [facility] Comment on above: Performed By: #### 1 230, 7600 #### [facility] [place] [address] Sales Property Manager: Ck Wallis MD Sodium [Moles/Vol] 138 mmol/L Normal 135-146 [facility] Comment on above: Performed By: #### 1 023, 7600 #### [facility] [place] [address] Sales Property Manager: Ck Wallis MD Urea nitrogen [Mass/Vol] 25 mg/dL Normal 7-25 [facility] Comment on above: Performed By: #### 1 023, 7600 #### [facility] [place] [address] Sales Property Manager: Ck Wallis MD LIPID PANEL, [facility] 12-0 Cholesterol [Mass/Vol] 166 mg/dL Normal <200 [facility] Comment on above: Performed By: #### 1 023, 7600 #### [facility] [place] [address] Sales Property Manager: Ck Wallis MD Cholesterol in HDL [Mass/Vol] 41 mg/dL Normal > OR = 40 [facility] Comment on above: Performed By: #### 1 023, 7600 #### [facility] [place] [address] Sales Property Manager: Ck Wallis MD Cholesterol in LDL [...] LDL-C. Nathan ARENAS et al. KETTY. 2013;310(19): 4501-1898 (http://education.Pre[employer]s.[employer]/faq/RNO687) Performed By: #### 1 023, 0 #### [facility] [place] [address] Sales Property Manager: Ck Wallis MD Cholesterol.total/ Cholesterol in HDL [Mass ratio] 4.0 {ratio} Normal <5.0 [facility] Comment on above: Performed By: #### 1 023, 7600 #### [facility] [place] [address] Sales Property Manager: Ck Wallis MD NON HDL CHOLESTEROL 125 mg/dL (calc) Normal <130 [facility] Comment on above: Result Comment: For patients with diabetes plus 1 major ASCVD risk factor, treating to a non-HDL-C goal of <100 mg/dL (LDL-C of <70 mg/dL) is considered a therapeutic option. Performed By: #### 1 0231, 7600 #### [facility] [address], [address] [place] [address] Sales Property Manager: Ck Wallis MD Triglyceride [Mass/Vol] 332 mg/dL High <150 [facility] Comment on above: Result Comment: If a non-fasting specimen was collected, consider repeat triglyceride testing on a fasting specimen if clinically indicated. Trever et al. J. of Clin. Lipidol. 2015;9:129-169. Performed By: #### 1 0231, 9930 #### [facility] [address], [address] [place], [place] [id number] Sales Property Manager: Ck Wallis MD [facility]-06 SARS-CoV-2 (COVID-19) RNA JOSE+probe Ql (Unsp spec) Not detected Normal NOT DETECTED [facility] Comment on above: Result Comment: This test is not yet approved or cleared by the [place] FDA. When there are no FDA-approved or cleared tests available, and other criteria are met, FDA can make tests available under an emergency access mechanism called an Emergency Use Authorization (EUA). The EUA for this test is supported by the [place] of Health and Human Service's (HHS's) declaration [...] consistent with SARS-CoV-2. Performed By: #### C VDTB #### [facility] [address] [place] [address] Dr. Cary ReyezPNTahmina 07-22-2021 P[address]MAN[id number] [facility] [place] [address] Progress Note Signed Patient Name: Tom Khan 0 Date of : 1955 Age/Sex: 65 / M Location: Geriatric [facility] Partial Attending physician: Gilles Farfan MD [...] Farfan his outpatient provider also working in IOP. Dr. Farfan increase Celexa to 40 mg [...] By: 07/22/21 1529 Cosigned By (if applicable): [id number] cc: DMITRY Brice Normal [facility] MRI BRAIN WO CONon MRI BRAIN WO CON EXAMINATION: MRI BRA IN WO CON, 07/21/2021 12:59 PM EST HISTORY: Cervical spondylosis [...] by: LULA RODRIGUEZ Date: 2021-07-21 14:13 Normal [facility] P.PN.PSYon 07-15-2021 P[address]PN[address] [place] [address] [address] [phone] Progress Note Signed Patient Name: Tom Khan 0 Date of : 1955 Age/Sex: 65 / M Location: Geriatric [facility] Partial Attending physician: Gilles Farfan MD [...] depressed even while he is working at [employer] which provides evidence for him that a [...] their safety they are to contact the [facility] office. If the office is not [...] antipsychotic. Dictated By: Gilles Farfan MD 07/15/21 1359 Signed By: 07/15/21 1409 Cosigned By (if applicable): [id number] cc: Gilles Farfan MD [facility] P.PNTahmina 07-01-2021 P.BRANDON [facility] [address] [place] [address] Progress Note Signed Patient Name: Tom Khan 0 Date of : 1955 Age/Sex: 65 / M Location: Geriatric IOP Partial Attending physician: Gilles Farfan MD Subjective [...] By: 07/01/21 1525 Cosigned By (if applicable): [id number] cc: DMITRY Brice Normal [facility] CTA CHEST WO W CONon 06-24-2 021 CTA CHEST WO W CON EXAMINATION: [...] by: CELINE OLIVERA Date: 2021-06-23 22:25 Normal [facility] FREE T4on 06-24-2021 Free T4 [Mass/Vol] 1.05 ng/dL Normal 0.78-2.19 [facility] Comment on above: Performed By: #### F T4 #### [facility] [address] [place], [place] [address] Dr. Cary Malagon PMeenuHPTahmina 06-24-[address] [address] History Physical Report Signed Patient Name: Tom Khan 0 Date of : 1955 Age/Sex: 65 / M Location: Geriatric [facility] Attending physician: Gilles Farfan MD HPI History of Present Illness Date of [...] that they have spoken with their financial underwriter and they are actually in a very good financial situation. They own several properties that they rent and they have a small fortune put aside for mcc money. 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 Tom repeated numerous times during our session that he needed to get back to work. 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 He actually has several interviews lined [...] intensive outpatient program. He follows with Dr. Shai Farfan and Karen at [facility] behavioral health. He is currently on Pristiq, Abilify, [...] this was not a suicide attempts. History [facility] Medical H (more content not included)... Normal [facility] TSHon 06-24-2021 TSH 1.217 uIU/mL Normal 0.470-4.680 [facility] Comment on above: Performed By: #### T SH #### [facility] [address] [place] [address] Dr. Cary Malagon TSH RANGE SEE BELOW Normal [facility] Comment on above: Result Comment: <0.3 4 UIU/ml HYPERTHYROID 0.34-5.60 UIU/ml EUTHYROID >5.60 UIU/ml HYPOTHYROID Performed By: #### T SH #### [facility] [address] [place] [address] Dr. Cary Malagon CARDIAC CHAN ADMITon 021 CK [Catalytic activity/Vol] 100 U/L Normal 55-170 [facility] Comment on above: Performed By: #### C MADM #### [facility] [address] [place] [address] Dr. Cary Malagon CK.MB [Mass/Vol] 0.70 ng/mL Normal <=2.37 [facility] Comment on above: Performed By: #### C MADM #### [facility] [address] [place] [address] Dr. Cary Malagon HSTROP 7.2 pg/mL Normal 4.0-42.2 [facility] Comment on above: Result Comment: CUT- OFF POINTS HAVE BEEN ESTABLISHED BASED ON THE FOURTH UNIVERSAL DEFINITIONS OF MYOCARDIAL INFARCTION. THE UPPER REFERENCE LIMIT (URL) OF TROPONIN, DEFINED THE 99TH PERCENTILE OF cTnI DISTRIBUTION IN A REFERENCE POPULATION, HAS BEEN CONFIRMED THE DECISION THRESHOLD FOR [place] DIAGNOSIS. Performed By: #### C MADM #### [facility] [address] [place] [address] Dr. Cary Malagon MERCY 47.0 ng/mL Normal <=121.0 [facility] Comment on above: Performed By: #### C MADM #### [facility] [address] [place] [address] Dr. Cary Malagon CBC AUTO DIFFon 06-23-2021 BASO # 0.0 103/ul Normal 0.0-0.1 [facility] Comment on above: Performed By: #### C BC #### [facility] [address] [place] [address] Dr. Cary Malagon Basophils/100 WBC (Bld) 0.3 % Normal 0.2-2.0 [facility] Comment on above: Performed By: #### C BC #### [facility] [address] [place] [address] Dr. Cary Malagon EO # 0.1 103/ul Normal 0.0-0.7 [facility] Comment on above: Performed By: #### C BC #### [facility] [address] [place] [address] Dr. Cary Malagon Eosinophils/100 WBC (Bld) 0.9 % Normal 0.9-7.0 [facility] Comment on above: Performed By: #### C BC #### [facility] [address] [place] [address] Dr. Cary Malagon Erythrocyte distribution width (RBC) [Ratio] 15.1 % Critically high 11.0-15.0 [facility] Comment on above: Performed By: #### C BC #### [facility] [address] [place] [address] Dr. Cary Malagon Hematocrit (Bld) [Volume fraction] 35.8 % Critically low 42.0-54.0 [facility] Comment on above: Performed By: #### C BC #### [facility] [address] [place] [address] Dr. Cary Malagon Hemoglobin (Bld) [Mass/Vol] 12.4 g/dL Critically low 14.0-18.0 [facility] Comment on above: Performed By: #### C BC #### [facility] [address] [place] [address] Dr. Cary Malagon IG # 0.04 10e3/ul Critically high 0.00-0.03 [facility] Comment on above: Performed By: #### C BC #### [facility] [address] [place] [address] Dr. Cary Malagon IG % 0.4 % Normal 0.0-0.5 [facility] Comment on above: Performed By: #### C BC #### [facility] [address] [place] [address] Dr. Cary Malagon LYMPH # 0.9 103/ul Critically low 1.2-3.8 [facility] Comment on above: Performed By: #### C BC #### [facility] [address] [place] [address] Dr. Cary Malagon Lymphocytes/100 WBC (Bld) 10.3 % Critically low 20.5-60.0 [facility] Comment on above: Performed By: #### C BC #### [facility] [address] [place] [address] Dr. Cary Malagon MANUAL DIFF REQ NO Normal [facility] Comment on above: Performed By: #### C BC #### [facility] [address] [place] [address] Dr. Cary Malagon MCH (RBC) [Entitic mass] 31.4 pg Normal 25.9-34.0 [facility] Comment on above: Performed By: #### C BC #### [facility] [address] [place] [address] Dr. Cary Malagon MCHC (RBC) [Mass/Vol] 34.6 g/dL Normal 29.9-35.2 [facility] Comment on above: Performed By: #### C BC #### [facility] [address] [place] [address] Dr. Cary Malagon MCV (RBC) [Entitic vol] 90.6 fL Normal 80.0-94.0 [facility] Comment on above: Performed By: #### C BC #### [facility] [address] [place] [address] Dr. Cary Malagon MONO # 1.1 103/ul Critically high 0.3-0.8 [facility] Comment on above: Performed By: #### C BC #### [facility] [address] [place] [address] Dr. Cary Malagon Monocytes/100 WBC (Bld) 11.9 % Normal 1.7-12.0 [facility] Comment on above: Performed By: #### C BC #### [facility] [address] [place] [address] Dr. Cary Malagon NEUT # 6.8 103/ul Critically high 1.4-6.5 [facility] Comment on above: Performed By: #### C BC #### [facility] [address] [place] [address] Dr. Cary Malagon Neutrophils/100 WBC (Bld) 76.2 % Critically high 43.0-75.0 [facility] Comment on above: Performed By: #### C BC #### [facility] [address] [place] [address] Dr. Cary Malagon Platelet mean volume (Bld) [Entitic vol] 9.2 fL Critically low 9.5-13.5 [facility] Comment on above: Performed By: #### C BC #### [facility] [address] [place] [address] Dr. Cary Malagon PLT 256 103/ul Normal 150-450 [facility] Comment on above: Performed By: #### C BC #### [facility] [address] [place] [address] Dr. Cary Malagon RBC 3.95 106/ul Critically low 4.70-6.10 [facility] Comment on above: Performed By: #### C BC #### [facility] [address] [place], [place] [id number] Dr. Cary Malagon WBC 8.9 103/ul Normal 4.0-11.0 [facility] Comment on above: Performed By: #### C BC #### [facility] [address] [place], [place] [id number] Dr. Cary Malagon CULTURE BLOODon 06-23-2021 Microscopic examination of blood, culture Culture Observations: NO GROWTH AT 5 DAYS. Normal [facility] Comment on above: Performed By: #### C BC #### [facility] [address] [place] [address] Dr. Cary Malagon [facility]-19 [facility]on 06-04 SARS-CoV-2 (COVID-19) RNA JOSE+probe Ql (Unsp spec) Not detected Normal NOT DETECTED [facility] Comment on above: Result Comment: When diagnostic testing is negative, the possibility of a false negative should be considered in the context of a patient's recent exposures and the presence of clinical signs and symptoms consistent with SARS-CoV-2. This test is not yet approved or cleared by the [place] Food and Drug Administration (FDA). This test was developed by [employer], [place], [place]. The performance characteristics of this test were validated by [facility]. The results are not intended to be used as the sole means for clinical diagnosis or patient management decisions. The [facility] is authorized under Clinical Laboratory Improvement Amendments (CLIA) to perform high- complexity testing. Performed By: #### C VDTBH #### [facility] [address] [place] [address] Dr. Cary Malagon D-DIMERon 06-23-2021 D-DIMER 1.43 mg/L FEU Critically high 0.19-0.50 [facility] Comment on above: Performed By: #### C MP #### [facility] [address] [place] [address] Dr. Cary Malagon D-DIMER COMMENTS SEE BELOW Normal [facility] Comment on above: Result Comment: Incr [...] hospitalization. Performed By: #### C MP #### [facility] [address] [place] [address] Dr. Cary Malagon PROF 14(COMP METB)on 021 Albumin [Mass/Vol] 3.6 g/dL Normal 3.5-5.0 [facility] Comment on above: Performed By: #### C MP #### [facility] [address] [place] [address] Dr. Cary Malagon Albumin/Globulin [Mass ratio] 1.0 {ratio} Normal [facility] Comment on above: Performed By: #### C MP #### [facility] [address] [place] [address] Dr. Cary Malagon ALP [Catalytic activity/Vol] 46 U/L Normal 38-126 [facility] Comment on above: Performed By: #### C MP #### [facility] [address] [place] [address] Dr. Cary Malagon ALT [Catalytic activity/Vol] 42 U/L Normal 21-72 [facility] Comment on above: Performed By: #### C MP #### [facility] [address] [place] [address] Dr. Cary Malagon Anion gap [Moles/Vol] 12.7 mmol/L Normal [facility] Comment on above: Performed By: #### C MP #### [facility] [address] [place] [address] Dr. Cary Malagon AST [Catalytic activity/Vol] 24 U/L Normal 17-59 [facility] Comment on above: Performed By: #### C MP #### [facility] [address] [place] [address] Dr. Cary Malagon Bilirubin [Mass/Vol] 0.4 mg/dL Normal 0.2-1.3 [facility] Comment on above: Performed By: #### C MP #### [facility] [address] [place] [address] Dr. Cary Malagon Calcium [Mass/Vol] 8.7 mg/dL Normal 8.4-10.2 [facility] Comment on above: Performed By: #### C MP #### [facility] [address] [place] [address] Dr. Cary Malagon Chloride [Moles/Vol] 100 mmol/L Normal 98-107 [facility] Comment on above: Performed By: #### C MP #### [facility] [address] [place] [address] Dr. Cary Malagon CO2 [Moles/Vol] 27.0 mmol/L Normal 22.0-30.0 The [facility] Comment on above: Performed By: #### C MP #### [facility] [address] [place] [address] Dr. Cary Malagon Creatinine [Mass/Vol] 1.18 mg/dL Normal 0.66-1.25 [facility] Comment on above: Performed By: #### C MP #### [facility] [address] [address] [address] Cary Malagon EGFR-AF AUSTRIAN >60 Normal >=60 [facility] Comment on above: Performed By: #### C MP #### [facility] [address] [address] [address] Cary Malagon EGFR-NON AF AUSTRIAN >60 Normal >=60 [facility] Comment on above: Performed By: #### C MP #### [facility] [address] [address] [address] Cary Malagon Globulin (S) [Mass/Vol] 3.6 g/dL Normal [facility] Comment on above: Performed By: #### C MP #### [facility] [address] [place] [address] Dr. Cary Malagon Glucose [Mass/Vol] 189 mg/dL Critically high 74-106 T [facility] Comment on above: Performed By: #### C MP #### [facility] [address] [address] [address] Cary Malagon Potassium [Moles/Vol] 3.7 mmol/L Normal 3.4-5.0 [facility] Comment on above: Performed By: #### C MP #### [facility] [address] [address] [address] Cary Malagon Protein [Mass/Vol] 7.2 g/dL Normal 6.1-8.2 [facility] Comment on above: Performed By: #### C MP #### [facility] [address] [address] [address] Cary Malagon Sodium [Moles/Vol] 136 mmol/L Critically low 137-145 [facility] Comment on above: Performed By: #### C MP #### [facility] [address] [address] [address] Cary Malagon Urea nitrogen [Mass/Vol] 25.0 mg/dL Critically high 9.0-20.0 [facility] Comment on above: Performed By: #### C MP #### [facility] [address] [place], [place] [address] Dr. Cary Malagon Urea nitrogen/Creatinin e [Mass ratio] 21.2 mg/mg Normal [facility] Comment on above: Performed By: #### C MP #### [facility] [address] [place], [place] [address] Dr. Cary Malagon XR CHEST 1 Von [...] by: MACO QUICK Date: 2021-06-23 20:43 Normal [facility] BetsyJENNIFERAmita 06-06-2021 A.[facility] [address] [place] [address] Office Visit Report Signed Patient Name: Tom Khan 0 Date of : 1955 Age/Sex: 65 / M Date of Service: Location: [facility] Behavioral Health Outpt Attending physician: Apolinar [...] 30 Violent Behavior No Current/Previous Provider Psychiatrist: Shai Farfan MD Therapist: TI Harrington Visit Details [...] TI Harrington 06/06/21 1447 Signed By: 06/06/21 1455 Cosigned By (if applicable): [id number] cc: Normal [facility] KASEY [facility] [place] [address] Office Visit Report Signed Patient Name: Tom Khan 0 Date of : 1955 Age/Sex: 65 / M Date of Service: Location: [facility] Behavioral Health Outpt Attending physician: Karen Sotelo MONE[employer] COUNTER Intake Vital Signs 06/06/21 12:07 Height 5 [...] Medical History (Updated 04/06/21 @ 11:52 by Shai Farfan MD) Diabetes Generalized anxiety disorder HTN (hypertension) with goal to be determined Hyponatremia Major depressive disorder NIDIA (obstructive sleep apnea) Retinal detachment Social anxiety disorder Surgical History (Updated 04/06/21 @ 09:39 by Shai Farfan MD) Hx of CABG Hx of total knee arthroplasty Family History (Updated 04/06/21 @ 09:39 by Shai Farfan MD) Father Heart disease Mother Stroke [...] to learn that he was scheduled for [id number]-[id number]-lpea appointments with this provider, and then also his therapist. Upon arrival to the office today patient and were informed that they are only allowed 1 appointment per day, due to insurance. Patient and were distressed to learn this, and did speak with our credit products officer today regarding this policy. Patient did [...] at this time. Patient continues working at [employer] part-time, approximately 21 hours/week, which is three [...] is also noticed since patient saw Dr. Farfan last, (more content not included)... Normal [facility] COMPREHENSIVE METABOLIC PANE Néstor 04-16-2021 Albumin [Mass/Vol] 4.5 g/dL Normal 3.6-5.1 [facility] Comment on above: Performed By: #### 4 96, 91509, 7600 #### [facility] of [place] [address] Sales Property Manager: Ck Wallis MD Albumin/Globulin [Mass ratio] 1.7 {ratio} Normal 1.0-2.5 [facility] Comment on above: Performed By: #### 4 96, 68362, 7600 #### [facility] of [place] [address] Sales Property Manager: Ck Wallis MD ALP [Catalytic activity/Vol] 41 U/L Normal 35-144 [facility] Comment on above: Performed By: #### 4 96, 28217, 0 #### [facility] of [place] [address] Sales Property Manager: Ck Wallis MD ALT [Catalytic activity/Vol] 37 U/L Normal 9-46 [facility] Comment on above: Performed By: #### 4 96, 70329, 0 #### [facility] [place] [address] Sales Property Manager: Ck Wallis MD AST [Catalytic activity/Vol] 20 U/L Normal 10-35 [facility] Comment on above: Performed By: #### 4 96, 04967, 0 #### [facility] of [place] [address] Sales Property Manager: Ck Wallis MD Bilirubin [Mass/Vol] 0.5 mg/dL Normal 0.2-1.2 [facility] Comment on above: Performed By: #### 4 96, 25517, 7600 #### [facility] of [place] [address] Sales Property Manager: Ck Wallis MD BUN/CREATININE RATIO NOT APPLICABLE Normal 6-22 [facility] Comment on above: Performed By: #### 4 96, 43492, 7600 #### [facility] of [address], [address] [place] [address] Sales Property Manager: Ck Wallis MD Calcium [Mass/Vol] 9.6 mg/dL Normal 8.6-10.3 [facility] Comment on above: Performed By: #### 4 96, 46580, 7600 #### [facility] of [address], [address] [place] [address] Sales Property Manager: Ck Wallis MD Chloride [Moles/Vol] 100 mmol/L Normal 98-110 [facility] Comment on above: Performed By: #### 4 96, 58709, 7600 #### [facility] of [place] [address] Sales Property Manager: Ck Wallis MD CO2 [Moles/Vol] 31 mmol/L Normal 20-32 [facility] Comment on above: Performed By: #### 4 96, 57262, 0 #### [facility] [place] [address] Sales Property Manager: Ck Wallis MD Creatinine [Mass/Vol] 1.07 mg/dL Normal 0.70-1.25 [facility] Comment on above: Result Comment: For patients >49 years of age, the reference limit for Creatinine is approximately 13% higher for people identified as -Greenlandic. Performed By: #### 4 96, 68298, 7600 #### [facility] [place] [address] Sales Property Manager: Ck Wallis MD eGFR NON-AFR. AUSTRIAN 73 mL/min/1.73m2 Normal > OR = 60 [facility] Comment on above: Performed By: #### 4 96, 14376, 7600 #### [facility] of [place] [address] Sales Property Manager: Ck Wallis MD GFR/1.73 sq M.predicted among blacks MDRD (S/P/Bld) [Vol rate/Area] 85 mL/min/{1.73_m2} Normal > OR = 60 [facility] Comment on above: Performed By: #### 4 96, 00312, 0 #### [facility] [place] [address] Sales Property Manager: Ck Wallis MD Globulin (S) [Mass/Vol] 2.6 g/dL Normal 1.9-3.7 [facility] Comment on above: Performed By: #### 4 96, 45315, 7600 #### [facility] [place] [address] Sales Property Manager: Ck Wallis MD Glucose [Mass/Vol] 139 mg/dL High 65-99 [facility] Comment on above: Result Comment: Fasting reference interval For someone without known diabetes, a glucose value >125 mg/dL indicates that they may have diabetes and this should be confirmed with a follow-up test. Performed By: #### 4 , , 0 #### [facility] [place] [address] Sales Property Manager: Ck Wallis MD Potassium [Moles/Vol] 4.2 mmol/L Normal 3.5-5.3 [facility] Comment on above: Performed By: #### 4 96, 99196, 0 #### [facility] [place] [address] Sales Property Manager: Ck Wallis MD Protein [Mass/Vol] 7.1 g/dL Normal 6.1-8.1 [facility] Comment on above: Performed By: #### 4 96, 25277, 0 #### [facility] [place] [address] Sales Property Manager: Ck Wallis MD Sodium [Moles/Vol] 138 mmol/L Normal 135-146 [facility] Comment on above: Performed By: #### 4 96, 02312, 7600 #### [facility] of [place] [address] Sales Property Manager: Ck Wallis MD Urea nitrogen [Mass/Vol] 22 mg/dL Normal 7-25 [facility] Comment on above: Performed By: #### 4 96, 09336, 7600 #### [facility] [place] [address] Sales Property Manager: Ck Wallis MD HEMOGLOBIN A1con 04-16-2021 [...] for children. Performed By: #### 4 96, 37355, 7600 #### [facility] [place] [address] Sales Property Manager: Ck Wallis MD LIPID PANEL, STANDARDon 04-03 Cholesterol [Mass/Vol] 239 mg/dL High <200 [facility] Comment on above: Order Comment: FASTI NG:YES FASTING: YES Performed By: #### 4 96, 0, 04147 #### [facility] [place] [address] Sales Property Manager: Ck Wallis MD Cholesterol in HDL [Mass/Vol] 45 mg/dL Normal > OR = 40 [facility] Comment on above: Order Comment: FASTI NG:YES FASTING: YES Performed By: #### 4 96, 7600, 89272 #### [facility] [place] [address] Sales Property Manager: Ck Wallis MD Cholesterol in LDL [Mass/Vol] 148 mg/dL High [facility] Comment on above: Order Comment: FASTI NG:YES FASTING: YES Result Comment: Refe rence range: <100 Desirable range <100 mg/dL for primary prevention; <70 mg/dL for patients with CHD or diabetic patients with > or = 2 CHD risk factors. LDL-C is now calculated using the Nathan-Cortez calculation, which is a validated novel method providing better accuracy than the Friedewald equation in the estimation of LDL-C. Nathan SS et al. KETTY. 2013;310(19): 5120-2439 (http://education.Music Mastermind/faq/QBN255) Performed By: #### 4 96, 7600, 75648 #### [facility] [address], [address] [place] [address] Sales Property Manager: Ck Wallis MD Cholesterol.total/ Cholesterol in HDL [Mass ratio] 5.3 {ratio} High <5.0 [facility] Comment on above: Order Comment: FASTI NG:YES FASTING: YES Performed By: #### 4 96, 7600, 91019 #### [facility] [address], [address] [place] [address] Sales Property Manager: Ck Wallis MD NON HDL CHOLESTEROL 194 mg/dL (calc) High <130 [facility] Comment on above: Order Comment: FASTI NG:YES FASTING: YES Result Comment: For patients with diabetes plus 1 major ASCVD risk factor, treating to a non-HDL-C goal of <100 mg/dL (LDL-C of <70 mg/dL) is considered a therapeutic option. Performed By: #### 4 96, 7600, 31460 #### [facility] [address], [address] [place] [address] Sales Property Manager: Ck Wallis MD Triglyceride [Mass/Vol] 280 mg/dL High <150 [facility] Comment on above: Order Comment: FASTI NG:YES FASTING: YES Result Comment: If a non-fasting specimen was collected, consider repeat triglyceride testing on a fasting specimen if clinically indicated. Trever et al. J. of Clin. Lipidol. 2015;9:129-169. Performed By: #### 4 96, 7600, 97578 #### [facility] [address], [address] [place] [address] Sales Property Manager: Ck Wallis MD Covid-19 PCR (CVDTBH)on 04-03 SARS-CoV-2 (COVID-19) RNA JOSE+probe Ql (Unsp spec) Not detected Normal NOT DETECTED [facility] Comment on above: Result Comment: This test is not yet approved or cleared by the [place] FDA. When there are no FDA-approved or cleared tests available, and other criteria are met, FDA can make tests available under an emergency access mechanism called an Emergency Use Authorization (EUA). The EUA for this test is supported by the [place] of Health and Human Service's (HHS's) declaration [...] SARS-CoV-2. Performed By: #### C BC #### [facility] [address] [place] [address] Dr. Cary Malagon US HARVEY DOP LEG [...] by: IAN FU Date: 2021-04-08 10:22 Normal [facility] CNTHERAPYon 03-23-2021 CNTHERAPY OT/PT/Speech Visit (SPAVTC) -------- TOM KHAN ([id number]) 1955 M T Date Time Provider Department 03/23[facility]21 8:15 [facility] Provider Department Center 03/23/2021 8:15 AM [id number], CHRISTI*[facility] AZRA BRIAN Reason for Visit: Speech Progress [...] as of 05/27/2018: Nifedipine started NIov 07-29 [facility] 05/27/18 Takes Latuda, Remeron, Trintellix, and BP meds (recalls Bistolic, does not have bottles with him).Elizabeth Blas RN Progress Notes: Rudolph Ambrocio PAINT SPECIALIST 03/23/2021 9:35 AM Signed Episode Visit Count: 3 Therapist That Will Oversee The Plan Of Care: Dorothy Benoit Start of Care Date: 02/15/21 Onset Date: 01/24/21 Plan of Care Certification Date: 02/15/21 Next Certification Due Date: 05/16/21 Patient Identified by Name and Date of : Yes [facility] SPEECH THERAPY PROGRESS [...] appropriate solut (more content not included)... Normal [facility] 03-04-2021 CNPN Telephone (ORTHIN) -------- TOM KHAN ([id number]) 1955 [facility] Date Time Provider Department 03/04/21 TIMA [...] Meds Comments as of 05/27/2018: Nifedipine started NI07-29 [facility] 05/27/18 Takes Latuda, Remeron, Trintellix, and [...] Status:Closed by YANETH MENDEZ on 03/04/21 Normal [facility] C-Reactive Proteinon 021 C-Reactive Protein 1.2 mg/dL High <0.9 [facility] Comment on above: Performed By: #### W SR, CRP #### [facility] [address] [place], [place] [address] CNOVon 03-01-2021 CNOV Office Visit (ORTHMN ) -------- TOM KHAN ([id number]) 1955 M T Date Time Provider Department 03/01/21 1:00 PM TIMA SOTO ORTHMN During your visit today, we recorded the following information about you: Tima Soto MD 03/01/2021 4:35 PM Signed Ortho Knee Follow Up Note Narrative Referring Provider: Tima Soto [address] [facility] [address] PCP: Tom Paniagua, DO ==== IMPRESSION/PLAN: Sed [...] Assessment and Plan. Referring Provider: TIMA SOTO [[id number]] Allergies As of Date: 03/01/2021 (No Known Allergies) Date Reviewed: 03/01/2021 Reviewed by: Derrick Mascorro - Fully Assessed Reason for Visit: Established Patient [175] Primary Visit Diagnosis:S/P total knee replacement, right [Z96.651] Order(s):SED RATE WESTERGREN [SQWSR] Order #: [id number] FUTURE C-REACTIVE PROTEIN (CRP) [[facility]] Order #: [id number] FUTURE Prescriptions as of 03/01/2021 Sig: ASPIRIN [...] Status:Closed by TIMA SOTO on 03/01/21 Normal [facility] Sed Rate Westergrenon 2020 Sed Rate Westergren 17 mm/hr High 0-15 [facility] Comment on above: Performed By: #### W SR, CRP #### [facility] [address] [place] [address] XR KNEE 3V AP/LAT/MERCHANT R Ton 03-01-2021 [...] other significant abnormality. IMPRESSION: EXPECTED POSTOPERATIVE APPEARANCE Improvement Director: ISADORA Transcribe Date/Time: Mar 01 2021 4:12P Dictated by : MICHELLE REYES MD This examination was interpreted and the report reviewed and electronically signed by: MICHELLE REYES MD on Mar 01 2021 4:12PM EST [id number] Normal [facility] CNTHERAPYon 02-25-2021 CNTHERAPY OT/PT/Speech Visit (SPAVTC) -------- TOM KHAN ([id number]) 1955 M T Date Time Provider Department 02/25/21 9:30 AM RUDOLPH AMBROCIO [facility] Date Time Provider Department Center 02/25/2021 9:30 AM [id number], CHRISTI*[facility] AZRA LAK Reason for Visit: Speech Therapy [3489] Primary [...] by mouth three bassem* Progress Notes: MICK Flanagan 02/25/2021 12:06 PM Signed Episode Visit Count: 2 Therapist That Will Oversee The Plan Of Care: Dorothy Benoit Start of Care Date: 02/15/21 Onset Date: 01/24/21 Plan of Care Certification Date: 02/15/21 Next Certification Due Date: 05/16/21 Patient Identified by Name and Date of : Yes [facility] SPEECH THERAPY TREATMENT [...] after 5 minutes (100%) TREATMENT: Speech/Language Therapy ([id number]): Skilled Intervention: Educated and instructed patient on [...] order, time problem solving Billing: Speech Treatment (25862) Total time / Length of visit: 45 minutes MICK Flanagan -------- Normal [facility] CNTHERAPYon 02-15-2021 CNTHERAPY OT/PT/Speech Visit (SPASDC) -------- TOM KHAN ([id number]) 1955 M [facility] Date Time Provider Department 02/15/21 9:30 AM DOROTHY BENOIT Date Time Provider Department Center 02/15/2021 9:30 AM [id number] BENOIT [facility] AZRA BRIAN Reason for Visit: Speech Evaluation [1647] Visit Diagnosis:MCI (mild cognitive impairment) [G31.84] Allergies [...] by Name and Date of : Yes [facility] COGNITIVE LINGUISTIC EVALUATION PLAN OF CARE: Impression: Functional communication without limitations in: Cognition Communication deficits identified: Cognitive deficits RECOMMENDATION: PAINT SPECIALIST Recommendations: Outpatient Speech Therapy Results and Recommendations Discussed With: Patient Prognosis: Good Good: good support system/ coping skills FCM Memory Level: 5 FCM Problem Solving Level: 5 Assessment per [facility] Functional Communication Measure and treatment recommendations: Memory: [...] 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 Normal [facility] PN-PSYCon 12-30-2020 PN-PSYC [facility] Name: TOM KHAN : 1955 Unit: [id number] Age: 65 Attending Physician: JOSLYN CONNOLLY [facility]- Pt Location: [facility] Date of Service: PROGRESS NOTE DATE [...] purpose. 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 Tom is scheduled with Dr. Shai Farfan in our outpatient department for February [...] any concerns (more content not included)... Normal [facility] PN-PSYCon 12-16-2020 PN-PSYC [facility] Name: TOM KHAN : 1955 Unit: [id number] Age: 65 Attending Physician: JOSLYN CONNOLLY [facility] Pt Location: [facility] Date of Service: PROGRESS NOTE DATE [...] background check gets back for part-time at [employer] and he may be starting that next [...] because she is coming with Tom to [place] next Sunday when he is here again [...] 1257 GILLES FARFAN M.D. Date Dict: 12/16/20929 JOSLYN CONNOLLY [facility] Date trans: 12/16/2043 [facility] [phone] cc: Normal [facility] PN-PSYCon 12-15-2020 PN-PSYC [facility] Name: TOM KHAN : 1955 Unit: [id number] Age: 65 Attending Physician: JOSLYN CONNOLLY [facility] Pt Location: [facility] Date of Service: PROGRESS NOTE DATE [...] spoke to him last week with the Abilify and he does take the Benztropine 1 [...] of his medications as currently prescribed to [facility] in [place] for a 30- day supply but I [...] any crisis in between. Electronically Signed by: JOSLYN CONNOLLY MSN, PRODUCT/DEVICE TECHNOLOGIST, [facility]- 12/16/20 0932 (more content not included)... 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 He [...] asks for me to send that to [facility] in [place] which I do for a 30-day supply. [...] is agree (more content not included)... Normal [facility] PSYCOH Willi 12-06-2020 PSYCOH P [facility] Name: TOM KHAN : 1955 Unit: [id number] Age: 65 Attending Physician: JOSLYN CONNOLLY [facility] Pt Location: [facility] Date of Service: HISTORY DATE OF SERVICE: 12/01/2020 PRESENT ILLNESS: Mr. Tom Khan is a 65-year-old male whom was referred to the [facility] as he was presenting with significant symptomology and non-response to medications so it was determined that he would likely do better in a situation where he could be monitored more closely in regards to medication response as well as treatment potential and response to therapy. Mr. Khan has been in outpatient psychiatric services with [facility] for medication management and therapy services for about the past 3 months. He was originally in partial hospitalization after he was discharged from inpatient hospitalization with [facility] from 07/19/2020 to 07/22/2020. The [...] was under the treatment [place] [facility]. At that time, Aissatou had admitted him [...] his admission in July to inpatient at [facility] he was admitted from [facility] just post-discharge from there. The diagnosis being used while he was inpatient at [facility] was major depressive disorder, recurrent, with a [...] he osei (more content not included)... 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 Normal [facility] PN-PSYCon 08-17-2020 PN-PSYC [facility] Name: TOM KHAN : 1955 Unit: [id number] Age: 64 Attending Physician: KAREN SOTELO C.N.P., Pt Location: [facility] Date of Service: PROGRESS NOTE DATE [...] week he is paying for the program [id number]. He has a conjoint scheduled with his this afternoon and he is hoping to discharge from the program later this week. At this point Tom is still not sure who he is going to follow up with. He has been under the care of Dr. Maldonado in the [place], [place] area but he is interested in finding a new provider. We have discussed the option of following up here or finding a psychiatric provider closer to his home in [place]. OBJECTIVE: Tom is oriented times three today [...] or with a psychiatric provider in the [place], [place] area. Today refills were sent for the Lamictal 150 mg due to the dose change but no other refill is needed today. Electronically Signed by: KAREN SOTELON.P. 08/19/20 1334 KAREN SOTELONMeenuP. Date Dict: 08/17/20 1043 KAREN SOTELO C.N.P. Date trans: 08/17/20 1152 [facility] [id number] cc: Normal [facility] PN-PSYCon 08-10-2020 PN-PSYC [facility] Name: OTM KHAN : 1955 Unit: [id number] Age: 64 Attending Physician: KAREN SOTELO C.N.P. Pt Location: [facility] Date of Service: PROGRESS [...] current treating psychiatrist, Dr. Maldonado, in the [place] area. Tom is not sure if he wants [...] a refill for BuSpar, Lamictal, and Viibryd. [facility] (more content not included)... Normal [facility] PSYCOH Willi 08-03-2020 PSYCOH P [facility] Name: TOM KHAN : 1955 Unit: [id number] Age: 64 Attending Physician: JOSLYN CONNOLLY [facility] Pt Location: [facility] Date of Service: HISTORY DATE OF SERVICE: 08/02/2020 DATE OF EVALUATION: 08/03/2020 TOTAL TIME SPENT WITH PATIENT: 80 minutes. CHIEF COMPLAINT: I just want to get back to work to my old job, but I can't. PRESENT ILLNESS: Mr. Khan is a 64-year-old male being seen today for his initial evaluation for the intensive out-patient program in [facility]. He has recently been in-patient in our [facility] geriatric unit with an admission date of 07/19/2020 and discharge date of 07/22/2020. Tom reports his insisted that he come in for help because she does not feel he is where he needs to be. Prior to coming to the [facility] geriatric program he was actually at [facility] for twelve days. 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 Tom denies any previous diagnosis of post traumatic stress disorder. He does share that when he was only in kl[employer] high his father had made a suicide threat and Tom had to stop his dad from going to the [employer] [facility]. Tom reports that has been the [...] he do (more content not included)... Normal [facility] XR Knee AP and Lateral and M gerald 05-20-2020 IMPRESSION: Status post right total knee arthroplasty without evidence of complication. Improvement Director: PSCB Transcribe Date/Time: May 20 2020 2:07P Dictated by : CAPRI CASTANEDA MD This examination was interpreted and the report reviewed and electronically signed by: CAPRI CASTANEDA MD on May 20 2020 2:08PM [facility] DIVISION OF RADIOLOGY * * *Final Report* [...] arthroplasty appears unchanged. DIVISION OF RADIOLOGY Provider, Ray Suarez - 05/20/2020 * * *Final Report* * [...] total knee arthroplasty without evidence of complication. Improvement Director: PSCB Transcribe Date/Time: May 20 2020 2:07P Dictated by : CAPRI CASTANEDA MD This examination was interpreted and the report reviewed and electronically signed by: CAPRI CASTANEDA MD on May 20 2020 2:08PM EST [facility] Radiology Study observation (narrative) [facility] XR Knee AP and Lateral and M erchantsOrdered By: Ccf Provider on 05-20-2020 [facility] CNPNon 04-27-2020 CNPN Telephone (AVXRMR) -------- TOM KHAN ([id number]) 1955 M T Date Time Provider Department 04/27/20 LARGE HOPS PROCEDURE RM 1 AVXRMR During your visit today, we recorded the following information about you: Katlin Ramires, RT, Tech 04/27/2020 7:01 AM Signed Pt needs Mri 3d order for dementia brain. Please place this order prior to patients appointment. Thanks, [place] [facility] [phone] Allergies As of Date: 04/27/2020 (No Known Allergies) Date Reviewed: 04/12/2020 Reviewed by: Shai (Rn) SAMUEL Garcia - Fully Assessed Reason [...] Encounter Status:Closed by KATLIN RAMIRES on 04/27/20 [facility] Basic Metabolic Panlon 04-13 Anion gap [Moles/Vol] 13 mmol/L Normal 9-18 [facility] Comment on above: Performed By: #### C SOBEIDA, BMP ####[place] [id number] [address] Calcium [Mass/Vol] 8.4 mg/dL Low 8.5-10.2 [facility] Comment on above: Performed By: #### C BC, BMP ####[facility] [phone] Chloride [Moles/Vol] 102 mmol/L Normal 97-105 [facility] Comment on above: Performed By: #### C BC, BMP ####[facility] [phone] CO2 [Moles/Vol] 24 mmol/L Normal 22-30 [facility] Comment on above: Performed By: #### C SOBEIDA, BMP ####[address] Creatinine [Mass/Vol] 1.08 mg/dL Normal 0.73-1.22 [facility] Comment on above: Performed By: #### C SOBEIDA, BMP ####[address] eGFR- Amer. >60 Normal >60 [facility] Comment on above: Performed By: #### C SOBEIDA, BMP ####[address] GFR/1.73 sq M predicted among non-blacks MDRD (S/P/Bld) [Vol rate/Area] mL/min/{1.73_m2} Normal >60 [facility] Comment on above: Result Comment: eGFR [...] GFR. Performed By: #### C SOBEIDA, BMP ####[address] Glucose [Mass/Vol] 168 mg/dL High 74-99 [facility] Comment on above: Performed By: #### C SOBEIDA, BMP ####[address] Potassium [Moles/Vol] 4.0 mmol/L Normal 3.7-5.1 [facility] Comment on above: Performed By: #### C SOBEIDA, BMP ####[address] Sodium [Moles/Vol] 139 mmol/L Normal 136-144 [facility] Comment on above: Performed By: #### C BC, BMP ####[facility] [phone] Urea nitrogen [Mass/Vol] 16 mg/dL Normal 9-24 [facility] Comment on above: Performed By: #### C BC, BMP ####[facility] [phone] CASE MANAGEMon 04-13-2020 CASE MANAGEM HNO ID: [id number] Author: Kellie (Rn) SAMUEL Galvan Service: ? Author Type: Registered Nurse Type: Care Mgt Progress Note Filed: 04/13/2020 2:10 PM Note Text: CARE MANAGEMENT DISCHARGE NOTE SERVICE DATE: 04/13/2020 SERVICE TIME: 11:25 am LOS: 0 days Admission Date: 04/12/2020 DISCHARGE ARRANGEMENT (list agency and phone number) Discharge Arrangement: Home Fci Care: PT Provider [facility]: [facility] [place], [place] Above agency is in in [employer], they have been called and are aware of DC today, information has been faxed to them at [phone] CAREGIVER ASSESSMENT: HANDOFF COMMUNICATION: Handoff to: (see summary of care) TRANSPORTATION ARRANGEMENTS: Transportation Arrangements: Car ADDITIONAL CONTACT RESOURCES: May ?1:15 PM Post Op with [facility] ([facility]) [facility] [id number] Needs Prior to Discharge: Ready for Discharge Patient and spouse said they did not need any further psychiatry information, but did accept [facility] physician referral phone number if needed in the future. SIGNATURE: Kellie Galvan RN PATIENT NAME: Tom Khan DATE: April 13, 2020 TIME: 11:25 AM PAGER/CONTACT #: [phone] Normal [facility] CBCon 04-13-2020 Absolute nRBC <0.01 Normal <0.01 [facility] Comment on above: Performed By: #### C BC, BMP ####[facility] [phone] Erythrocyte distribution width (RBC) [Ratio] 14.3 % Normal 11.5-15.0 [facility] Comment on above: Performed By: #### C BC, BMP ####[place] [phone] Hematocrit (Bld) [Volume fraction] 35.6 % Low 39.0-51.0 [facility] Comment on above: Performed By: #### C SOBEIDA, BMP ####[place] [phone] Hemoglobin (Bld) [Mass/Vol] 11.6 g/dL Low 13.0-17.0 [facility] Comment on above: Performed By: #### C SOBEIDA, BMP ####[place] [phone] MCH (RBC) [Entitic mass] 30.0 pG Normal 26.0-34.0 [facility] Comment on above: Performed By: #### C SOBEIDA, BMP ####[place] [phone] MCHC (RBC) [Mass/Vol] 32.6 g/dL Normal 30.5-36.0 [facility] Comment on above: Performed By: #### C SOBEIDA, BMP ####[place] [phone] MCV (RBC) [Entitic vol] 92.0 fL Normal 80.0-100.0 [facility] Comment on above: Performed By: #### C BC, BMP ####[place] [phone] Platelet mean volume (Bld) [Entitic vol] 9.1 fL Normal 9.0-12.7 [facility] Comment on above: Performed By: #### C SOBEIDA, BMP ####[place] [phone] Platelets (Bld) [#/Vol] 226 10*3/uL Normal 150-400 [facility] Comment on above: Performed By: #### C SOBEIDA, BMP ####[place] [phone] RBC (Bld) [#/Vol] 3.87 10*6/uL Low 4.20-6.00 [facility] Comment on above: Performed By: #### C SOBEIDA, BMP ####[facility] [phone] WBC (Bld) [#/Vol] 11.48 10*3/uL High 3.70-11.00 [facility] Comment on above: Performed By: #### C SOBEIDA, BMP ####[facility] [phone] CONSULTon 04-13-2020 CONSULT HNO ID: [id number] Author: Shai Boykin Service: Psychiatry Author Type: Nurse Practitioner [...] will fu with his outpatient psychiatrist at [facility] and with his counselor 3.) Will fu with neurology for MRI which is scheduled 04/26/2020 For questions regarding this patient for today, please page Shai Boykin APRN.CNP After 5 PM and on weekends, please page Psychiatry On-Call Pager @ [phone]. Consulting Service: Psychiatry, requested by [facility] team REASON FOR CONSULTATION: Depression Identifying Information: Mr. Khan is a 64 year old male from [place], [place]. HPI: Calm, cooperative, pleasant on interview. [...] and they are very active in their mandaeism (both are protective factors) -Tom just saw [...] deficits Current Psychiatrist: Anum VIDALES Current Therapist: Psych SOBEIDA Last Hospitalization: 3 hospitalizations in 2018 for depression in (2 at [facility]). He then went [facility] in [place] which [facility] a [facility] History of Suicide Attempts: none Previous Psychiatric [...] not working Current supports: Legal history: None Jewish affiliation(s): spiritual, mosque Abuse history: suggests history of trauma in childhood FAMILY HISTORY Problem Relation Age of Onset - Diabetes Mother - Stroke Mother - Heart Father [place] age 56 - No Ocular Disease Other [...] 08/22/2017 7.0 4.5 - 8.0 Final Specific [place], [place] Date Value Ref Range Status 08/22/2017 [...] Status 10/09/2008 0-5 R05 /HPF Final SIGNATURE: Shai Boykin APRN.MONEY COUNTER PAGER/CONTACT #: [facility] CONSULT PROGon 04-13-2020 CONSULT PROG HNO ID: [id number] Author: Woo Sanchez Service: General Internal Medicine [...] DATE: April 13, 2020 TIME: 12:[address] [facility] PROGRESSon 04-13-2020 PROGRESS HNO ID: [id number] Author: Kemal Calderón (Pa) Service: Orthopaedic Surgery Author Type: Physician Warehouse Operator Type: Progress Notes Filed: 04/13/2020 9:05 AM [...] onward) Start Dose Route Frequency Ordered Stop 08/11/20 0900 aspirin, enteric coated 81 mg tab(s) (Surgical Risk Categories ) 81 mg ORAL 2 TIMES DAILY 04/12/20 1305 -- 04/13/20 0000 aspirin, enteric coated (ECOTRIN LOW STRENGTH) 81 mg EC tablet (Medication Panel) 81 mg ORAL 2 TIMES DAILY 04/11/20 1155 05/13/20 2359 04/12/20 1315 graduated compression stockings ([place]) 04/12/20 1315 graduated compression stockings ([place] 04/12/20 1315 activity - mobilize patient ([place]) VTE Prophylaxis: VTE prophylaxis appropriate POST OPERATIVE COMPLICATIONS: Complicated by: uneventful/none SIGNATURE: Kemal Calderón PA-C PATIENT NAME: Tom Khan DATE: 04/13/2020 TIME: 9:05 AM PAGER/CONTACT #: [phone] [facility] THERAPY NTon 04-13-2020 THERAPY NT HNO ID: [id number] Author: Malaika (Pt) Ayo Service: Physical Therapy Author Type: Physical Therapist Type: Therapy (PT/OT/Speech/Resp) Filed: 04/13/2020 2:57 PM Note Text: Physical Therapy Treatment SERVICE DATE: 04/13/2020 SERVICE TIME: 1336 to 1447 ROOM: [place] [address] Recommended Discharge Disposition: Home PT Anticipated Discharge [...] at Start of Session: Supine in Bed;Call Heredia in Reach;Family Present Patient Disposition at End of Session: Supine in Bed;Call Heredia in Reach;Family Present Tolerated Full Session Physiologic [...] ess on feet Interventions Provided: Therapeutic Exercise (56331);Therapeutic Activity (92970);Gait Training (25121) Therapeutic Exercise (28400) Treatment Minutes: 40 3 units Skilled Intervention(s): Instruction in therapeutic exercise per TKR protocol. Patient performed all supine and seated exercises 1 x 10 Verbal and tactile cuing provided for correct exercise technique, proper set up and frequency of exercise at discharge and use of ice for pain relief Therapeutic Activity (76951) Treatment Minutes: 11 1 unit Skilled Intervention(s): Instructed patient in supine to and from sit pushing with upper extremities to sit up Instruction in sit to and from stand technique with proper hand placement and body positioning at edge of bed/chair Gait Training (02803) Treatment Minutes: 20 1 unit Skilled Intervention(s): [...] Step length decreased General Deviations/Observations: Deborah decreased JH-HLM: 7: Walk 25 feet or more Please see discipline specific clinical documentation flowsheet for complete details for this therapy evaluation/treatment. SIGNATURE: Malaika Rollins PT PATIENT NAME: Tom Khan DATE: April 13, 2020 TIME: 2:[address] [facility] THERAPY NT HNO ID: [id number] Author: Michelle (Ot) ADALBERTO Bob Service: Occupational Therapy Author Type: Occupational Therapist Type: Therapy (PT/OT/Speech/Resp) Filed: 04/13/2020 10:03 AM Note Text: Occupational Therapy Evaluation SERVICE DATE: 04/13/2020 SERVICE TIME: 0846 to 14 ROOM: [id number] Recommended Discharge Disposition: Home Anticipated Discharge Needs: [...] at Start of Session: Supine in Bed;Call Heredia in Reach Patient Disposition at End of Session: Supine in Bed;Call Heredia in Reach Tolerated Full Session Occupational Therapy [...] of daily living (ADL) Interventions Provided: Evaluation;Self Fci Management (63836) $ Evaluation-Low (95253) Billed Units: 1 unit Self Fci Management (25687) Treatment Minutes: 13 1 unit Skilled Intervention(s): [...] complete details for this therapy evaluation/treatment. SIGNATURE: BOAZ Travis/Sully PATIENT NAME: Tom Khan DATE: April 13, 2020 TIME: 10:[address] [facility] ANES POSTPROC EVALon 020 ANES POSTPROC EVAL HNO ID: [id number] Author: Shawn Tran Service: ? Author Type: [...] care. SIGNATURE: Shawn Tran MD PATIENT NAME: oTm Khan DATE: April 12, 2020 TIME: 4:43 PM CSN: [id number] [facility] ANES PRE-OPon 04-12-2020 ANES PRE-OP HNO ID: [id number] Author: Shawn Tran Service: ? Author Type: [...] none. Vitals Value Taken Time BP 150/90 04/12/20736 Pulse 74 04/12/20736 Resp 16 04/12/20736 Temp 36.4 ?C (97.5 ?F) 04/12/20736 SpO2 96 % 04/12/20736 Facility-Administered Medications as of 04/12/2020 Medication Dose [...] April 12, 2020 TIME: 8:57 AM CSN: [id number] [facility] BRIEF OP NOTon 04-12-2020 BRIEF OP NOT HNO ID: [id number] Author: Eliseo Toussaint Service: Orthopaedic Surgery Author Type: Resident Type: Brief Op Note Filed: 04/12/2020 12:29 PM Note Text: ORTHOPAEDIC SURGERY BRIEF OP NOTE LOG ID: [id number] Surgery/Procedure Date: 04/12/2020 Incision/Procedure Start Time: 10:09 AM Incision Close/Procedure End Time: 12:06 PM Surgeon(s)/Proceduralist (s) and Warehouse Operator(s): Surgeon(s) and Role: * [facility] - Primary * Eliseo Toussaint - Resident - Assisting Procedure(s): Right TKA Anesthesia: Spinal Findings: Right knee OA Estimated Blood Loss: 10 ml Specimens: None Complications: None Pre-Op/Pre-Procedure Diagnosis: Right knee OA Post-Op/Post-Procedure Diagnosis: Same SIGNATURE: Eliseo Toussaint MD PATIENT NAME: Tom Khan DATE: April 12, 2020 TIME: 12:29 PM PAGER/CONTACT #: [phone] / [facility] CASE MANAGEMon 04-12-2020 CASE MANAGEM HNO ID: [id number] Author: Kellie Tong) SAMUEL Galvan Service: ? Author Type: Registered Nurse Type: Care Mgt Progress Note Filed: 04/12/2020 4:34 PM Note Text: CARE MANAGEMENT PROGRESS NOTE SERVICE DATE: 04/12/2020 SERVICE TIME: 4:33 pm LOS: 0 days Referral faxed to [facility] [place]. phone # [phone] and fax # [phone] Wheeled walker ordered from [facility] SIGNATURE: Kellie Galvan RN PATIENT NAME: Tom Khan DATE: April 12, 2020 TIME: 4:33 PM PAGER/CONTACT #: [phone] [facility] CASE MANAGEM HNO ID: [id number] Author: Kellie Tong) SAMUEL Galvan Service: ? Author Type: Registered Nurse Type: Care Mgt Progress Note Filed: 04/12/2020 2:09 PM Note Text: CARE MANAGEMENT PROGRESS NOTE SERVICE DATE: 04/12/2020 SERVICE TIME: 2:07 pm LOS: 0 days Procedure(s): Right TKA [place] of Choice Given: Yes Level of Care [...] Current Advance Directive: Health Care Power of Solar Site Assessment Specialist;Living Will In Chart: Yes Up To Date and Valid: Yes Lives with who can assist at home. Had a std walker. Meds filed here. CM Department will continue to follow. SIGNATURE: Kellie Galvan RN PATIENT NAME: Tom Khan DATE: April 12, 2020 TIME: 2:07 PM PAGER/CONTACT #: [phone] [facility] CONSULTon 04-12-2020 CONSULT HNO ID: [id number] Author: Woo Sanchez Service: General Internal Medicine [...] DATE: April 12, 2020 TIME: 5:[address] [facility] NURSING PROGon 04-12-2020 NURSING PROG HNO ID: [id number] Author: Diya (Rn) SAMUEL Tim Service: ? Author Type: Registered Nurse Type: Nursing Progress Note Filed: 04/12/2020 2:09 PM Note Text: Nursing Progress Note Patient Name: Tom Khan [id number] Patient transferred from PACU to room 522-2 in stable condition at this time. Patient [...] note was completed by: Diya Tim RN [facility] ID: [id number] Author: Nancy DamonRn) SAMUEL Sales Service: ? Author Type: Registered Nurse Type: Nursing Progress Note Filed: 04/12/2020 12:39 PM Note Text: Dr. Montelongo at bedside to do block on right knee at this time. Pt tolerated procedure well. [facility] ID: [id number] Author: Hebert DamonRn) SAMUEL Mast Service: Nursing Author Type: Registered Nurse Type: Nursing Progress Note Filed: 04/12/2020 12:14 PM Note Text: Discharge Status: Patient is Awakening, and is no airway issues. Skin condition was WNL. Transported to recovery room via bed with siderails up. Accompanied by forensic dna analyst and surgeon. [facility] ID: [id number] Author: Hebert DamonRn) SAMUEL Mast Service: Nursing Author Type: Registered Nurse Type: Nursing Progress Note Filed: 04/12/2020 9:40 AM Note Text: Patient transported to the OR via cart, accompanied by SANDRA RN. Level of consciousness: Alert and Oriented x 3 Emotional Status:Calm Sensory Impairments: No Language Barrier: No Mobility Impairments: Yes, spinal Addressed any patient concerns regarding consents, OR environment, and anesthetics. Body temperature maintained by maintaining OR room temperature between 68-72 degrees F, providing patient with warm bath blankets, limiting areas of exposure and providing warm irrigation fluid. [facility] ID: [id number] Author: Veronica Kunz (Rn) SAMUEL Dominguez Service: Nursing Author Type: Registered Nurse Type: Nursing Progress Note Filed: 04/12/2020 8:31 AM Note Text: Nursing Progress Note Patient Name: Tom Khan Patient Location: [facility]-OPERATING ROOM POOL/[facility]-OR POOL Daily Note:underwear off. This note was completed by: Veronica Dominguez RN [facility] OPERATIVE NOon 04-12-2020 OPERATIVE NO HNO ID: [id number] Author: [facility] Service: Orthopaedic Surgery Author Type: Physician Type: Operative Report Filed: 04/13/2020 8:19 AM Note Text: OPERATIVE/PROCEDURE REPORT LOG ID: [id number] Surgery/Procedure Date: 04/12/2020 Incision/Procedure Start Time: 10:09 AM Incision Close/Procedure End Time: 12:06 PM Surgeon(s) and Warehouse Operator(s): Surgeon(s) and Role: * T[facility]oto - Primary * Eliseo (Layla) Norbert - Resident - Assisting Physician Warehouse Operator: Alcon Alston (Mary) Erwin Waldrop (Pa) Procedure(s): Procedure(s) (LRB): ARTHROPLASTY [...] Implant Name Type Inv. Item Serial No. Wire Spring Relay Adjuster Lot No. LRB Model Num No. Used CEMENT SIMPLEX P BONE RADIOPAQUE FULL DOSE STERILE - [id number] Cement / Putty CEMENT SIMPLEX P BONE RADIOPAQUE FULL DOSE STERILE [facility] [id number] Right [id number] 1 CEMENT SIMPLEX P BONE RADIOPAQUE FULL DOSE STERILE - [id number] Cement / Putty CEMENT SIMPLEX P BONE RADIOPAQUE FULL DOSE STERILE STRY/[facility] [id number] Right [id number] 1 COMPONENT PERSONA 11 STANDARD COCR FEMORAL CRUCIATE RETAIN - [id number] Joint - Knee COMPONENT PERSONA 11 STANDARD COCR FEMORAL CRUCIATE RETAIN [employer] [id number] Right 02-9972-399-02 1 BASEPLATE PERSONA 5D G TIVANIUM TIBIAL CEMENTED STEM KNEE RIGHT - [id number] Joint BASEPLATE PERSONA 5D G TIVANIUM TIBIAL CEMENTED STEM KNEE RIGHT [employer] [id number] Right 08-0716-647-02 1 Persona Imp Knee Surf Artc R 10 8-11Gh [phone] Implant [employer] [id number] Right 25-4587-843-10 1 EXTENSION PERSONA 14MM TAPER 30+ MM STEM KNEE TIBIA - [id number] Joint EXTENSION PERSONA 14MM TAPER 30+ MM STEM KNEE TIBIA [employer] [id number] Right 36-8709-226-14 1 COMPONENT 38MM ALL POLY PATELLAR PSN - [id number] Joint - Knee COMPONENT 38MM ALL POLY PATELLAR PSN [employer] [id number] Right 12-1368-356-38 1 PROBLEM LIST: ACTIVE PROBLEM LIST Senile [...] verified this against the epicondylar axis and Tavares's line. The femur was sized and drill [...] None Resident opened and closed and Physician Warehouse Operator closed, without direct supervision but with primary surgeon/proceduralist readily available and the remainder of the procedure was performed by the primary surgeon/proceduralist with assistance. SIGNATURE: Tima Soto MD PATIENT NAME: Tom Khan DATE: April 13, 2020 TIME: 8:18 AM PAGER/CONTACT #: [facility] PT EDon 04-12-2020 PT ED HNO ID: [id number] Author: Veronica DamonRn) SAMUEL Dominguez Service: Nursing Author Type: Registered Nurse Type: Patient Education Filed: 04/12/2020 8:08 AM Note Text: PATIENT EDUCATION TOPIC: PROCEDURE / SURGERY: Pre-op Teaching: Logistics Protocols Complication Prevention PATIENT NAME: Tom Khan [facility] READINESS TO LEARN COGNITIVE ABILITY: Alert and [...] None Electronically Signed By: Veronica Dominguez RN [facility] THERAPY NTon 04-12-2020 THERAPY NT HNO ID: [id number] Author: Malaika Fraire) Ayo Service: Physical Therapy Author Type: Physical Therapist Type: Therapy (PT/OT/Speech/Resp) Filed: 04/12/2020 4:09 PM Note Text: Physical Therapy Evaluation SERVICE DATE: 04/12/2020 SERVICE TIME: 1503 to 1553 ROOM: [id number]-4X-860P-02 Recommended Discharge Disposition: Home PT Anticipated Discharge [...] at Start of Session: Supine in Bed;Call Heredia in Reach Patient Disposition at End of Session: OOB in Chair;Call Heredia in Reach;Family Present;Chair Alarm Tolerance Limited By [...] ess on feet Interventions Provided: Evaluation;Therapeutic Exercise (48195);Therapeutic Activity (15709) $ Evaluation-Moderate (99684) Billed Units: 1 unit Therapeutic Exercise (79045) Treatment Minutes: 20 1 unit Skilled Intervention(s): Instruction in therapeutic exercise per TKR protocol. Patient performed all supine exercises 1 x 10 Verbal and tactile cuing provided for correct exercise technique and frequency of antiembolics Therapeutic Activity (07616) Treatment Minutes: 15 1 unit Skilled Intervention(s): [...] DATE: April 12, 2020 TIME: 4:[address] [facility] NURSING PROGon 04-07-2020 NURSING PROG HNO ID: [id number] Author: Malu DamonRn) SAMUEL Hernández Service: Anesthesiology Author Type: Registered Nurse Type: Nursing Progress Note Filed: 04/07/2020 2:53 PM Note Text: ADDENDUM: 04/02/[address] Rodrigue James completed. Ok to proceed per PACC NOHEMY. Chart Check COMPLETE Malu Hernández RN April 07, 2020 2:[address] [facility] NURSING PROGon 04-02-2020 NURSING PROG HNO ID: [id number] Author: Flor DamonRn) SAMUEL Hyman Service: Anesthesiology [...] N/A Cardiac Testing: EKG completed 04/01/20 [facility] Sinus Rhythm with 1st Degree AV Block:Right Bundle Branch Block:Possible inferior Infarction, Age Undetermined :Abnormal EKG - Unconfirmed in [facility] Last Menstrual Period: LMP Date: [...] monitored per PCP last glucose result in [facility] of 11/23/19 (112) ? ? S/P [...] Hyman RN April 02, 2020 9:[address] [facility] Type and SCR (30D)on 020 ABO/RH(D) Negative [facility] Comment on above: Performed By: #### T SCR30 #### [facility] [address] [place] [address] HOSPon 02-26-2020 HOSP Patient:Tom Khan MRN: Height:5' [...] entered within the past 30 days Normal [facility] CBC with Diffon 11-09-2018 Abs. Basophil 0.00 k/uL Normal 0.0-0.2 [facility] Comment on above: Performed By: #### C DP, CMPX, FT4, LIPR, TSH #### [facility] [address] [place], [place] [id number] Er Rn: Artem Swann MD #### GLYHGB #### [facility] [employer] [facility] [place], [place] [id number] Er Rn: Hiram Mccullough MD Abs.Neutrophil (Seg) 4.30 k/uL Normal 1.3-9.1 [facility] Comment on above: Performed By: #### C DP, CMPX, FT4, LIPR, TSH #### [facility] [address] [place], [place] [id number] Er Rn: Artem Swann MD #### GLYHGB #### [address] [address] Er Rn: Hiram Mccullough MD Basophils/100 WBC (Bld) 0 % Normal 0-2 [facility] Comment on above: Performed By: #### C DP, CMPX, FT4, LIPR, TSH #### [facility] [address] [place] [address] Er Rn: Artem Swann MD #### GLYHGB #### [address] [address] Er Rn: Hiram Mccullough MD Eosinophils #/vol (Bld) 0.00 10*3/uL Normal 0.0-0.4 [facility] Comment on above: Performed By: #### C DP, CMPX, FT4, LIPR, TSH #### [facility] [address] [place] [address] Er Rn: Artem Swann MD #### GLYHGB #### [address] [address] Er Rn: Hiram Mccullough MD Eosinophils/100 WBC (Bld) 0 % Normal 0-4 [facility] Comment on above: Performed By: #### C DP, CMPX, FT4, LIPR, TSH #### [facility] [address] [place] [address] Er Rn: Artem Swann MD #### GLYHGB #### [address] [address] Er Rn: Hiram Mccullough MD Erythrocyte distribution width Ratio (RBC) 14.3 % Normal 11.5-14.9 [facility] Comment on above: Performed By: #### C DP, CMPX, FT4, LIPR, TSH #### [facility] [address] [place] [address] Er Rn: Artem Swann MD #### GLYHGB #### [address] [address] Er Rn: Hiram Mccullough MD Hematocrit Volume Fraction (Bld) 40.3 % Low 41-53 [facility] Comment on above: Performed By: #### C DP, CMPX, FT4, LIPR, TSH #### [facility] [address] [place] [address] Er Rn: Artem Swann MD #### GLYHGB #### [address] [address] Er Rn: Hiram Mccullough MD Hemoglobin mass conc (Bld) 13.4 g/dL Low 13.5-17.5 [facility] Comment on above: Performed By: #### C DP, CMPX, FT4, LIPR, TSH #### [facility] [address] [place] [address] Er Rn: Artem Swann MD #### GLYHGB #### [address] [address] Er Rn: Hiram Mccullough MD Lymphocytes #/vol (Bld) 0.50 10*3/uL Low 1.0-4.8 [facility] Comment on above: Performed By: #### C DP, CMPX, FT4, LIPR, TSH #### [facility] [address] [place] [address] Er Rn: Artem Swann MD #### GLYHGB #### [address] [address] Er Rn: Hiram Mccullough MD Lymphocytes/100 WBC (Bld) 9 % Low 24-44 [facility] Comment on above: Performed By: #### C DP, CMPX, FT4, LIPR, TSH #### [facility] [address] [place] [address] Er Rn: Artem Swann MD #### GLYHGB #### [address] [address] Er Rn: Hiram Mccullough MD MCH Entitic mass (RBC) 30.7 pg Normal 26-34 [facility] Comment on above: Performed By: #### C DP, CMPX, FT4, LIPR, TSH #### [facility] [address] [place] [address] Er Rn: Artem Swann MD #### GLYHGB #### [address] [address] Er Rn: Hiram Mccullough MD MCHC mass conc (RBC) 33.3 g/dL Normal 31-37 [facility] Comment on above: Performed By: #### C DP, CMPX, FT4, LIPR, TSH #### [facility] [place] [address] Er Rn: Artem Swann MD #### GLYHGB #### [address] [address] Er Rn: Hiram Mccullough MD MCV Entitic volume (RBC) 92.1 fL Normal 80-100 [facility] Comment on above: Performed By: #### C DP, CMPX, FT4, LIPR, TSH #### [facility] [place] [address] Er Rn: Artem Swann MD #### GLYHGB #### [address] [address] Er Rn: Hiram Mccullough MD Monocytes #/vol (Bld) 0.40 10*3/uL Normal 0.1-1.3 [facility] Comment on above: Performed By: #### C DP, CMPX, FT4, LIPR, TSH #### [facility] [address] [place] [address] Er Rn: Aretm Swann MD #### GLYHGB #### [address] [address] Er Rn: Hiram Mccullough MD Monocytes/100 WBC (Bld) 8 % High 1-7 [facility] Comment on above: Performed By: #### C DP, CMPX, FT4, LIPR, TSH #### [facility] [address] [place] [address] Er Rn: Artem Swann MD #### GLYHGB #### [address] [address] Er Rn: Hiram Mccullough MD Neutrophil (Seg) 83 % High 36-66 [facility] Comment on above: Performed By: #### C DP, CMPX, FT4, LIPR, TSH #### [facility] [address] [place] [address] Er Rn: Artem Swann MD #### GLYHGB #### [address] [address] Er Rn: Hiram Mccullough MD Platelet mean volume Entitic volume (Bld) 6.5 fL Normal 6.0-12.0 [facility] Comment on above: Performed By: #### C DP, CMPX, FT4, LIPR, TSH #### [facility] [address] [place] [address] Er Rn: Artem Swann MD #### GLYHGB #### [address] [address] Er Rn: Hiram Mccullough MD Platelets #/vol (Bld) 284 10*3/uL Normal 150-450 [facility] Comment on above: Performed By: #### C DP, CMPX, FT4, LIPR, TSH #### [facility] [address] [place] [address] Er Rn: Artem Swann MD #### GLYHGB #### [address] [address] Er Rn: Hiram Mccullough MD RBC #/vol (Bld) 4.38 10*6/uL Low 4.5-5.9 [facility] Comment on above: Performed By: #### C DP, CMPX, FT4, LIPR, TSH #### [facility] [place] [address] Er Rn: Artem Swann MD #### GLYHGB #### [address] [address] Er Rn: Hiram Mccullough MD WBC #/vol (Bld) 5.3 10*3/uL Normal 3.5-11.0 [facility] Comment on above: Performed By: #### C DP, CMPX, FT4, LIPR, TSH #### [facility] [address] [place] [address] Er Rn: Artem Swann MD #### GLYHGB #### [address] [address] Er Rn: Hiram Mccullough MD Abs.Imm.Granulocyt e NOT REPORTED Normal 0.00-0.30 [facility] Comment on above: Performed By: #### C DP, CMPX, FT4, LIPR, TSH #### [facility] [address] [place] [address] Er Rn: Artem Swann MD #### GLYHGB #### [address] [address] Er Rn: Hiram Mccullough MD Auto Diff Performed NOT REPORTED Normal [facility] Comment on above: Performed By: #### C DP, CMPX, FT4, LIPR, TSH #### [facility] [address] [place] [address] Er Rn: Artem Swann MD #### GLYHGB #### [address] [address] Er Rn: Hiram Mccullough MD Immature granulocytes #/vol (Bld) NOT REPORTED Normal 0 [facility] Comment on above: Performed By: #### C DP, CMPX, FT4, LIPR, TSH #### [facility] [place] [address] Er Rn: Artem Swann MD #### GLYHGB #### [address] [address] Er Rn: Hiram Mccullough MD NRBC Automated NOT REPORTED Normal [facility] Comment on above: Performed By: #### C DP, CMPX, FT4, LIPR, TSH #### [facility] [place] [address] Er Rn: Artem Swann MD #### GLYHGB #### [address] [address] Er Rn: Hiram Mccullough MD Platelets #/vol (Bld) NOT REPORTED Normal [facility] Comment on above: Performed By: #### C DP, CMPX, FT4, LIPR, TSH #### [facility] [address] [place] [address] Er Rn: Artem Swann MD #### GLYHGB #### [address] [place] [address] Er Rn: Hiram Mccullough MD RBC morphology finding Nom (Bld) NOT REPORTED Normal [facility] Comment on above: Performed By: #### C DP, CMPX, FT4, LIPR, TSH #### [facility] [address] [place] [address] Er Rn: Artem Swann MD #### GLYHGB #### [address] [place] [address] Er Rn: Hiram Mccullough MD WBC Morphology NOT REPORTED Normal [facility] Comment on above: Performed By: #### C DP, CMPX, FT4, LIPR, TSH #### [facility] [address] [place] [address] Er Rn: Artem Swann MD #### GLYHGB #### [address] [place] [address] Er Rn: Hiram Mccullough MD Comp Metabolic Pr/rfx MGon 0 11-09-2018 (cont.) Normal [facility] Comment on above: Result Comment: Aver age GFR for 60-69 years old: 85 mL/min/1.73sq m Chronic Kidney Disease: <60 mL/min/1.73sq m Kidney failure: <15 mL/min/1.73sq m eGFR calculated using average adult body mass. Additional eGFR calculator available at: http://www.[employer].com/multiple_crcl_2012.htm Performed By: #### C DP, CMPX, FT4, LIPR, TSH #### [facility] [address] [place] [address] Er Rn: Artem Swann MD #### GLYHGB #### [address] [place] [address] Er Rn: Hiram Mccullough MD Albumin mass conc 3.7 g/dL Normal 3.5-5.2 [facility] Comment on above: Performed By: #### C DP, CMPX, FT4, LIPR, TSH #### [facility] [address] [place] [address] Er Rn: Artem Swann MD #### GLYHGB #### [address] [place] [address] Er Rn: Hiram Mccullough MD Alkaline Phos 60 U/L Normal 40-129 [facility] Comment on above: Performed By: #### C DP, CMPX, FT4, LIPR, TSH #### [facility] [address] [place] [address] Er Rn: Artem Swann MD #### GLYHGB #### [address] [address] Er Rn: Hiram Mccullough MD ALT enzyme act/vol 29 U/L Normal 5-41 [facility] Comment on above: Performed By: #### C DP, CMPX, FT4, LIPR, TSH #### [facility] [address] [place] [address] Er Rn: Artem Swann MD #### GLYHGB #### [address] [place] [address] Er Rn: Hiram Mccullough MD Anion gap molar conc 8 mmol/L Low 9-17 [facility] Comment on above: Performed By: #### C DP, CMPX, FT4, LIPR, TSH #### [facility] [address] [place] [address] Er Rn: Artem Swann MD #### GLYHGB #### [address] [address] Er Rn: Hiram Mccullough MD AST enzyme act/vol 30 U/L Normal <40 [facility] Comment on above: Performed By: #### C DP, CMPX, FT4, LIPR, TSH #### [facility] [address] [place] [address] Er Rn: Artem Swann MD #### GLYHGB #### [address] [address] Er Rn: Hiram Mccullough MD Bilirubin Ql (U) 0.44 mg/dL Normal 0.3-1.2 [facility] Comment on above: Performed By: #### C DP, CMPX, FT4, LIPR, TSH #### [facility] [address] [place] [address] Er Rn: Artem Swann MD #### GLYHGB #### [address] [address] Er Rn: Hiram Mccullough MD Calcium mass conc 8.9 mg/dL Normal 8.6-10.4 [facility] Comment on above: Performed By: #### C DP, CMPX, FT4, LIPR, TSH #### [facility] [address] [place] [address] Er Rn: Artem Swann MD #### GLYHGB #### [address] [address] Er Rn: Hiram Mccullough MD Chloride molar conc 101 mmol/L Normal 98-107 [facility] Comment on above: Performed By: #### C DP, CMPX, FT4, LIPR, TSH #### [facility] [address] [place] [address] Er Rn: Artem Swann MD #### GLYHGB #### [address] [place] [address] Er Rn: Hiram Mccullough MD CO2 molar conc 28 mmol/L Normal 20-31 [facility] Comment on above: Performed By: #### C DP, CMPX, FT4, LIPR, TSH #### [facility] [address] [place] [address] Er Rn: Artem Swann MD #### GLYHGB #### [address] [address] Er Rn: Hiram Mccullough MD Creatinine mass conc 0.92 mg/dL Normal 0.70-1.20 [facility] Comment on above: Performed By: #### C DP, CMPX, FT4, LIPR, TSH #### [facility] [address] [place] [address] Er Rn: Artem Swann MD #### GLYHGB #### [address] [address] Er Rn: Hiram Mccullough MD GFR, Amer >60 Normal >60 [facility] Comment on above: Performed By: #### C DP, CMPX, FT4, LIPR, TSH #### [facility] [address] [place] [address] Er Rn: Artem Swann MD #### GLYHGB #### [address] [address] Er Rn: Hiram Mccullough MD GFR,non Amer >60 Normal >60 [facility] Comment on above: Performed By: #### C DP, CMPX, FT4, LIPR, TSH #### [facility] [address] [place] [address] Er Rn: Artem Swann MD #### GLYHGB #### [address] [address] Er Rn: Hiram Mccullough MD Glucose mass conc 111 mg/dL High 70-99 [facility] Comment on above: Performed By: #### C DP, CMPX, FT4, LIPR, TSH #### [facility] [address] [place] [address] Er Rn: Artem Swann MD #### GLYHGB #### [address] [address] Er Rn: Hiram Mccullough MD Potassium molar conc 4.5 mmol/L Normal 3.7-5.3 [facility] Comment on above: Performed By: #### C DP, CMPX, FT4, LIPR, TSH #### [facility] [address] [place] [address] Er Rn: Artem Swann MD #### GLYHGB #### [address] [address] Er Rn: Hiram Mccullough MD Protein mass conc 6.8 g/dL Normal 6.4-8.3 [facility] Comment on above: Performed By: #### C DP, CMPX, FT4, LIPR, TSH #### [facility] [address] [place] [address] Er Rn: Artem Swann MD #### GLYHGB #### [address] [address] Er Rn: Hiram Mccullough MD Sodium molar conc 137 mmol/L Normal 135-144 [facility] Comment on above: Performed By: #### C DP, CMPX, FT4, LIPR, TSH #### [facility] [address] [place] [address] Er Rn: Artem Swann MD #### GLYHGB #### [address] [place] [address] Er Rn: Hiram Mccullough MD Urea nitrogen mass conc 17 mg/dL Normal 8-23 [facility] Comment on above: Performed By: #### C DP, CMPX, FT4, LIPR, TSH #### [facility] [address] [place] [address] Er Rn: Artem Swann MD #### GLYHGB #### [address] [address] Er Rn: Hiram Mccullough MD Albumin/Globulin mass ratio NOT REPORTED Normal 1.0-2.5 [facility] Comment on above: Performed By: #### C DP, CMPX, FT4, LIPR, TSH #### [facility] [address] [place] [address] Er Rn: Artem Swann MD #### GLYHGB #### [address] [address] Er Rn: Hiram Mccullough MD BUN/CRE Ratio NOT REPORTED Normal 9-20 [facility] Comment on above: Performed By: #### C DP, CMPX, FT4, LIPR, TSH #### [facility] [address] [place] [address] Er Rn: Artem Swann MD #### GLYHGB #### [address] [address] Er Rn: Hiram Mccullough MD Staging: NOT REPORTED Normal [facility] Comment on above: Performed By: #### C DP, CMPX, FT4, LIPR, TSH #### [facility] [address] [place] [address] Er Rn: Artem Swann MD #### GLYHGB #### [address] [address] Er Rn: Hiram Mccullough MD Hemoglobin A1Con 11-09-2018 Hemoglobin A1c/Hemoglobin.tot al mass fraction (Bld) 6.5 % High 4.0-6.0 [facility] Comment on above: Performed By: #### C DP, CMPX, FT4, LIPR, TSH #### [facility] [address] [facility] [place] [address] Er Rn: Artem Swann MD #### GLYHGB #### [address] [address] Er Rn: Hiram Mccullough MD Hemoglobin A1c/Hemoglobin.tot al mass fraction (Bld) 140 mg/dL Normal [facility] Comment on above: Result Comment: The ADA and AACC recommend providing the estimated average glucose result to permit better patient understanding of their HBA1c result. Performed By: #### C DP, CMPX, FT4, LIPR, TSH #### [facility] [address] [facility] [place] [address] Er Rn: Artem Swann MD #### GLYHGB #### [address] [address] Er Rn: Hiram Mccullough MD Lipid Profileon 11-09-2018 Cholesterol in HDL mass conc 48 mg/dL Normal >40 [facility] Comment on above: Result Comment: HDL Guidelines: <40 Undesirable 40-59 Borderline >59 Desirable Performed By: #### C DP, CMPX, FT4, LIPR, TSH #### [facility] [address] [facility] [place] [address] Er Rn: Artem Swann MD #### GLYHGB #### [address] [id number] Er Rn: Hiram Mccullough MD Cholesterol in LDL mass conc 106 mg/dL Normal 0-130 [facility] Comment on above: Result Comment: LDL Guidelines: <100 Desirable 100-129 Near to/above Desirable 130-159 Borderline >159 Undesirable Direct (measured) LDL and calculated LDL are not interchangeable tests. Performed By: #### C DP, CMPX, FT4, LIPR, TSH #### [facility] [address] [place] [address] Er Rn: Artem Swann MD #### GLYHGB #### [address] [id number] Er Rn: Hiram Mccullough MD Cholesterol mass conc 177 mg/dL Normal <200 [facility] Comment on above: Result Comment: Cholesterol Guidelines: <200 Desirable 200-240 Borderline >240 Undesirable Performed By: #### C DP, CMPX, FT4, LIPR, TSH #### [facility] [address] [place] [address] Er Rn: Artem Swann MD #### GLYHGB #### [address] [address] Er Rn: Hiram Mccullough MD Cholesterol.total/ Cholesterol in HDL mass ratio 3.7 {ratio} Normal <5 [facility] Comment on above: Performed By: #### C DP, CMPX, FT4, LIPR, TSH #### [facility] [address] [place] [address] Er Rn: Artem Swann MD #### GLYHGB #### [address] [address] Er Rn: Hirma Mccullough MD Triglyceride mass conc 117 mg/dL Normal <150 [facility] Comment on above: Result Comment: Triglyceride Guidelines: <150 Desirable 150-199 Borderline 200-499 High >499 Very high Based on AHA Guidelines for fasting triglyceride, June 2012. Performed By: #### C DP, CMPX, FT4, LIPR, TSH #### [facility] [address] [place] [address] Er Rn: Artem Swann MD #### GLYHGB #### [address] [address] Er Rn: Hiram Mccullough MD Cholesterol in VLDL mass conc NOT REPORTED Normal 1-30 [facility] Comment on above: Performed By: #### C DP, CMPX, FT4, LIPR, TSH #### [facility] [address] [place] [address] Er Rn: Artem Swann MD #### GLYHGB #### [address] [address] Er Rn: Hiram Mccullough MD Thyroid Stim. Horm.on 2018 Thyrotropin Qn 1.13 m[IU]/L Normal 0.30-5.00 [facility] Comment on above: Performed By: #### C DP, CMPX, FT4, LIPR, TSH #### [facility] [address] [place] [address] Er Rn: Artem Swann MD #### GLYHGB #### [address] [address] Er Rn: Hiram Mccullough MD Thyroxine, Freeon 11-09-2018 Thyroxine, Free 1.29 ng/dL Normal 0.93-1.70 [facility] Comment on above: Performed By: #### C DP, CMPX, FT4, LIPR, TSH #### [facility] [address] [place] [address] Er Rn: Artem Swann MD #### GLYHGB #### [address] [address] Er Rn: Hiram Mccullough MD Streptococcus Group A Cultur e-Pharyngeal Swabon 07-19-2017 Streptococcus Group A Culture-Pharyngeal Swab Negative Normal NEGATIVE [facility] Comment on above: Result Comment: A po sitive result indicates the specimen is presumptively positive for Group A Beta Strep by bacitracin method. Performed By: #### F DAMEON A/B MOLECUL ####[address] [place] [address] Amylaseon 07-18-2017 Amylase 82 U/L Normal 30 - 110 [facility] Comment on above: Performed By: #### F DAMEON A/B MOLECUL ####[address] [place] [address] Basic Metabolic Panelon 07-04 eGFR (non-black) 107.69 Normal [facility] Comment on above: Performed By: #### B MP ####[address] [place] [address] eGFR (non-black) 70.21 Normal [facility] Comment on above: Result Comment: eGFR Interpretation:Normal: Equal to or greater than 60 mL/min/1.73 meters squaredChronic Kidney Disease: Less than 60 mL/min/1.73 meters squaredKidney Failure: Less than 15 mL/min/1.73 meters squared Performed By: #### B MP ####[address] [place] [address] eGFR (non-black) 87.6 Normal [facility] Comment on above: Result Comment: eGFR Interpretation:Normal: Equal to or greater than 60 mL/min/1.73 meters squaredChronic Kidney Disease: Less than 60 mL/min/1.73 meters squaredKidney Failure: Less than 15 mL/min/1.73 meters squared Performed By: #### B MP ####[address] [place] [address] eGFR (non-black) 93.16 Normal [facility] Comment on above: Result Comment: eGFR Interpretation:Normal: Equal to or greater than 60 mL/min/1.73 meters squaredChronic Kidney Disease: Less than 60 mL/min/1.73 meters squaredKidney Failure: Less than 15 mL/min/1.73 meters squared Performed By: #### B MP ####[address] [place] [address] eGFR (non-black) 100.97 Normal [facility] Comment on above: Performed By: #### B MP ####[address] [place] [address] eGFR (non-black) 80.94 Normal [facility] Comment on above: Performed By: #### B MP ####[address] [place] [address] Age 61 year(s) Normal [facility] Comment on above: Performed By: #### B MP ####[address] [place] [address] Calcium 9.6 mg/dL Normal 8.4 - 10.2 [facility] Comment on above: Performed By: #### B MP ####[address] [place] [address] Chloride 102 mmol/L Normal 98 - 107 [facility] Comment on above: Performed By: #### B MP ####[address] [place] [place] [address] CO2 25 mmol/L Normal 22 - 32 [facility] Comment on above: Performed By: #### B MP ####[address] [place] [address] Creatinine 0.90 mg/dL Normal 0.66 - 1.25 [facility] Comment on above: Performed By: #### B MP ####[id number] [place] [address] Glucose mass conc 105 mg/dL High 65 - 100 [facility] Comment on above: Performed By: #### B MP ####[address] [place] [address] Potassium molar conc 4.4 mmol/L Normal 3.6 - 5.0 [facility] Comment on above: Performed By: #### B MP ####[address] [place] [address] Sodium 141 mmol/L Normal 135 - 145 [facility] Comment on above: Performed By: #### B MP ####[address] [place] [address] Urea nitrogen 13 mg/dL Normal 9 - 20 [facility] Comment on above: Performed By: #### B MP ####[address] [place] [address] CBC W Auto Differentialon Abs Neut # 6.2 10 X 3/mm Normal 1.8 - 7.7 [facility] Comment on above: Performed By: #### C BC Auto Diff ####[address] [place] [address] Basophils/100 WBC Auto (Bld) 0 % Normal 0 - 1 [facility] Comment on above: Performed By: #### C BC Auto Diff ####[address] [place] [address] Eosinophils 0.0 10 X 3/mm Normal 0.0 - 0.5 [facility] Comment on above: Performed By: #### C BC Auto Diff ####[id number] [place] [address] Eosinophils/100 leukocytes 1 % Normal 0 - 5 [facility] Comment on above: Performed By: #### C BC Auto Diff ####[address] [place] [address] Erythrocyte distribution width Auto Ratio (RBC) 14.6 % High 11.5 - 14.5 [facility] Comment on above: Performed By: #### C BC Auto Diff ####[address] [place] [address] Erythrocytes (RBC) 4.68 10 X 6/mm Low 4.70 - 6.10 [facility] Comment on above: Performed By: #### C BC Auto Diff ####[address] [place] [address] Hematocrit (HCT) 42.2 % Normal 42.0 - 52.0 [facility] Comment on above: Performed By: #### C BC Auto Diff ####[id number] [place] [address] Hemoglobin mass conc (Bld) 14.5 g/dL Normal 13.0 - 16.0 [facility] Comment on above: Performed By: #### C BC Auto Diff ####[address] [place] [address] Lymphocytes 1.8 10 X 3/mm Normal 1.0 - 4.0 [facility] Comment on above: Performed By: #### C BC Auto Diff ####[id number] [place] [address] Lymphocytes/100 leukocytes 20 % Normal 20 - 40 [facility] Comment on above: Performed By: #### C BC Auto Diff ####[address] [place] [address] MCH 30.9 pg Normal 27.0 - 35.0 [facility] Comment on above: Performed By: #### C BC Auto Diff ####[address] [place] [address] MCHC mass conc (RBC) 34.3 g/dL Normal 32.0 - 36.0 [facility] Comment on above: Performed By: #### C BC Auto Diff ####[address] [place] [address] MCV 90.2 fL Normal 80.0 - 100.0 [facility] Comment on above: Performed By: #### C BC Auto Diff ####[address] [place] [address] Monocytes/100 leukocytes 9 % Normal 1 - 15 [facility] Comment on above: Performed By: #### C BC Auto Diff ####[address] [place] [address] Neutrophils/100 WBC Auto (Bld) 70 % High 50 - 70 [facility] Comment on above: Performed By: #### C BC Auto Diff ####[address] [place] [address] Platelet mean volume (PMV) 8.1 fL Normal 7.5 - 11.5 [facility] Comment on above: Performed By: #### C BC Auto Diff ####[address] [place] [address] Platelets 237 uLx10 Normal 150 - 450 [facility] Comment on above: Performed By: #### C BC Auto Diff ####[address] [place] [address] WBC (Leukocytes) 8.9 10 X 3/mm Normal 3.7 - 11.0 [facility] Comment on above: Performed By: #### C BC Auto Diff ####[id number] [place] [id number] [place] RENAL STONEon 07-18-2017 CT RENAL STONE [...] electronically signed by: Dr. Kamron Alonso Normal [facility] Hepatic Function Panelon Alanine aminotransferase (ALT) 35 U/L Normal 8 - 72 [facility] Comment on above: Performed By: #### F DAMEON A/B MOLECUL ####[address] [place] [address] Albumin 4.6 g/dL Normal 3.5 - 5.0 [facility] Comment on above: Performed By: #### F DAMEON A/B MOLECUL ####[address] [place] [address] Alkaline phosphatase (ALP) 45 U/L Normal 38 - 126 [facility] Comment on above: Performed By: #### F DAMEON A/B MOLECUL ####[address] [place] [address] Aspartate aminotransferase (AST) 25 U/L Normal 17 - 59 [facility] Comment on above: Performed By: #### F DAMEON A/B MOLECUL ####[address] [place] [address] Bilirubin (direct) 0.0 mg/dL Normal 0.0 - 0.2 [facility] Comment on above: Performed By: #### F DAMEON A/B MOLECUL ####[address] [place] [address] Bilirubin (total) 0.5 mg/dL Normal 0.2 - 1.3 [facility] Comment on above: Performed By: #### F DAMEON A/B MOLECUL ####[address] [place] [address] Protein 7.5 g/dL Normal 6.3 - 8.2 [facility] Comment on above: Performed By: #### F DAMEON A/B MOLECUL ####[address] [place] [address] Infectious Monoon 07-18-2017 Infectious [place] Negative Normal NEGATIVE [facility] Comment on above: Performed By: #### M NOE TEST ####[address] [place] [address] Internal Control ACCEPTABLE Normal [facility] Comment on above: Performed By: #### M NOE TEST ####[address] [place] [address] Lipaseon 07-18-2017 Lipase 209 U/L Normal 23 - 300 [facility] Comment on above: Performed By: #### F DAMEON A/B MOLECUL ####[address] [place] [address] Lipid Panelon 07-18-2017 HDL/Cholesterol Ratio 3.3 Ratio Normal 1.0 - 4.5 [facility] Comment on above: Performed By: #### L IPID PANEL ####[address] [place] [address] LDL Cholesterol 75 mg/dL Normal 20 - 100 [facility] Comment on above: Result Comment: If t he triglyceride value is >400 mg/dL, the calculated LDL value is not accurate. Performed By: #### L IPID PANEL ####[address] [place] [address] Cholesterol 168 mg/dL Normal 100 - 200 [facility] Comment on above: Result Comment: <200 mg/dL is recommended cholesterol level. Performed By: #### L IPID PANEL ####[address] [place] [address] HDL Cholesterol 51 mg/dL Normal [facility] Comment on above: Result Comment: Norm al HDL ranges:Males: >40 mg/dLFemales: >60 mg/dL Performed By: #### L IPID PANEL ####[address] [place] [address] Triglyceride 210 mg/dL High 10 - 150 [facility] Comment on above: Result Comment: <150 mg/dL is recommended triglyceride level. Performed By: #### L IPID PANEL ####[address] [place] [address] PSA-Screenon 07-18-2017 PSA-Screen 1.07 ng/mL Normal 0.00 - 4.00 [facility] Comment on above: Result Comment: [facility] UTILIZES [employer] PSA METHODOLOGY. DIFFERENT TEST METHODS CANNOT BE USED INTERCHANGEABLY. PSA RESULTS IN A GIVEN PATIENT SAMPLE DETERMINED WITH DIFFERENT TESTS AND FROM DIFFERENT MANUFACTURERS CAN VARY DUE TO DIFFERENCES IN TEST METHODS AND REAGENTS. Performed By: #### F DAMEON A/B MOLECUL ####[address] [place] [address] TSHon 07-18-2017 Thyroid stimulating hormone (TSH) 1.050 mIU/mL Normal 0.470 - 4.680 [facility] Comment on above: Performed By: #### F DAMEON A/B MOLECUL ####[address] [place] [address] Troponin I, Extra Sensitiveo n 07-18-2017 Age at Specimen Collection = Normal [facility] Comment on above: Performed By: #### T ROPONIN I ####[address] [place] [address] Performed By: #### F DAMEON A/B MOLECUL ####[address] [place] [address] Performed By: #### L IPID PANEL ####[address] [place] [address] Troponin I.cardiac mass conc ng/mL Normal 0.000 - 0.034 [facility] Comment on above: Result Comment: Limi t of Detection: <0.012 ng/mLAt Risk of Myocardial Damage: 0.012-0.034 ng/mLProbable Myocardial Damage: >0.034 ng/mL Performed By: #### F DAMEON A/B MOLECUL ####[address] [address] Troponin I.cardiac mass conc ng/mL Normal 0.000 - 0.034 [facility] Comment on above: Result Comment: Limi t of Detection: <0.012 ng/mLAt Risk of Myocardial Damage: 0.012-0.034 ng/mLProbable Myocardial Damage: >0.034 ng/mL Performed By: #### T ROPONIN I ####[address] [place] [address] Troponin I.cardiac mass conc ng/mL Normal 0.000 - 0.034 [facility] Comment on above: Result Comment: Limi t of Detection: <0.012 ng/mLAt Risk of Myocardial Damage: 0.012-0.034 ng/mLProbable Myocardial Damage: >0.034 ng/mL Performed By: #### T ROPONIN I ####[address] [id number] XR CHEST PA OR AP (1 VIEW)on [...] electronically signed by: Dr. Efra Young Normal [facility] A Strepon 07-17-2017 Rapid strep test Negative Normal NEGATIVE [facility] Comment on above: Performed By: #### R APID STREP SCR ####[address] [address] Internal Control ACCEPTABLE Normal [facility] Comment on above: Performed By: #### R APID STREP SCR ####[address] [place] [address] RAPID FLUon 07-17-2017 Internal Control ACCEPTABLE Normal [facility] Comment on above: Performed By: #### F DAMEON A/B MOLECUL ####[address] [place] [address] Flu A Negative Normal NEGATIVE [facility] Comment on above: Performed By: #### F DAMEON A/B MOLECUL ####[address] [place] [address] Flu B Negative Normal NEGATIVE [facility] Comment on above: Result Comment: A po sitive result indicates the presence of Influenza A/B antigen. A negative result should be interpreted as presumptively negative for the presence of Influenza A/B antigen. Performed By: #### F DAMEON A/B MOLECUL ####[address] [place] [address] Age at Specimen Collection = Normal [facility] Comment on above: Performed By: #### F DAMEON A/B MOLECUL ####[address] [place] [address] Performed By: #### M NOE TEST ####[address] [place] [address] Performed By: #### B MP ####[address] [place] [address] Performed By: #### C BC Auto Diff ####[address] [place] [address] Performed By: #### U A w reflex C&S ####[address] [place] [address] Performed By: #### R APID STREP SCR ####[address] [place] [address] Performed By: #### T ROPONIN I ####[address] [place] [address] UA w reflex C&Son 07-17-2017 Urine, bacteria in sediment 1+ Abnormal [facility] Comment on above: Performed By: #### U A w reflex C&S ####[address] [place] [address] Urine, crystals in sediment NONE SEEN Normal NONE SEEN [facility] Comment on above: Performed By: #### U A w reflex C&S ####[address] [place] [address] Erythrocytes (RBC) 0-4/HPF Normal NONE SEEN [facility] Comment on above: Performed By: #### U A w reflex C&S ####[address] [place] [address] WBC (Leukocytes) 0-4/HPF Normal NONE SEEN [facility] Comment on above: Performed By: #### U A w reflex C&S ####[address] [place] [address] Urine, casts in sediment NONE SEEN Normal NONE SEEN [facility] Comment on above: Performed By: #### U A w reflex C&S ####[address] [place] [address] Urine, epithelial cells in sediment Negative Normal NEGATIVE [facility] Comment on above: Performed By: #### U A w reflex C&S ####[address] [place] [address] Urine, mucus presence in sediment Negative Normal NEGATIVE [facility] Comment on above: Performed By: #### U A w reflex C&S ####[address] [place] [address] Reflex Culture? URINE CULTURE REFLEXED Normal [facility] Comment on above: Performed By: #### U A w reflex C&S ####[address] [place] [address] Urine, leukocyte esterase presence Negative Normal NEGATIVE [facility] Comment on above: Performed By: #### U A w reflex C&S ####[address] [place] [address] Urine, nitrite presence Negative Normal NEGATIVE [facility] Comment on above: Performed By: #### U A w reflex C&S ####[address] [place] [address] Urobilinogen, Dipstick 0.2 Normal 0.2 - 1.0 [facility] Comment on above: Performed By: #### U A w reflex C&S ####[address] [place] [address] Protein, Qual Negative Normal NEGATIVE [facility] Comment on above: Performed By: #### U A w reflex C&S ####[address] [place] [address] Urine, pH 6.0 [pH] Normal 5.0 - 9.0 [facility] Comment on above: Performed By: #### U A w reflex C&S ####[address] [place] [address] Blood, Dipstick TRACE Abnormal NEGATIVE [facility] Comment on above: Performed By: #### U A w reflex C&S ####[address] [place] [address] Urine, specific gravity <1.005 Abnormal 1.005 - 1.030 [facility] Comment on above: Performed By: #### U A w reflex C&S ####[address] [place] [address] Bilirubin (direct) Negative Normal NEGATIVE [facility] Comment on above: Performed By: #### U A w reflex C&S ####[address] [place] [address] Glucose mass conc Negative Normal NEGATIVE [facility] Comment on above: Performed By: #### U A w reflex C&S ####[address] [place] [address] Ketone, Dipstick Negative Normal NEGATIVE [facility] Comment on above: Performed By: #### U A w reflex C&S ####[address] [place] [address] Urine, character CLEAR Normal CLEAR [facility] Comment on above: Performed By: #### U A w reflex C&S ####[address] [place] [address] Urine, color YELLOW Normal [facility] Comment on above: Performed By: #### U A w reflex C&S ####[address] [place] [address] Vital Signs Date Time Vital Sign Value Performing Clinician Facility 03-19-2025 11:41-0400 Body height 180.3 cm Gita Watts DO Work Phone: [facility] 03-19-2025 11:41-0400 Body mass index (BMI) [Ratio] 35.29 kg/m2 Gita Watts DO Work Phone: [facility] 03-19-2025 11:41-0400 Body weight 114.76 kg Gita Watts DO Work Phone: [facility] 03-19-2025 11:41-0400 Diastolic blood pressure 72 mm[Hg] Gita Watts DO Work Phone: [facility] 03-19-2025 11:41-0400 Heart rate 72 /min Gita Watts DO Work Phone: [facility] 03-19-2025 11:41-0400 Systolic blood pressure 110 mm[Hg] Gita Watts DO Work Phone: [facility] 03-17-2025 16:27-0400 Body height 180.3 cm Mc Chatman DPM Work Phone: [facility] 03-17-2025 16:27-0400 Body mass index (BMI) [Ratio] 34.87 kg/m2 Mc Chatman DPM Work Phone: [facility] 03-17-2025 16:27-0400 Body weight 113.4 kg Mc Chatman DPM Work Phone: [facility] 03-17-2025 10:19-0400 Body height 180.3 cm Leeann Castillo CRIMINAL JUSTICE PROFESSOR-MONEY COUNTER Work Phone: [facility] 03-17-2025 10:19-0400 Body mass index (BMI) [Ratio] 35.84 kg/m2 Leeann Castilol CRIMINAL JUSTICE PROFESSOR-MONEY COUNTER Work Phone: [facility] 03-17-2025 10:19-0400 Body temperature 97.2 [degF] Leeann Castillo CRIMINAL JUSTICE PROFESSOR-MONEY COUNTER Work Phone: [facility] 03-17-2025 10:19-0400 Body weight 116.57 kg Leeann Castillo CRIMINAL JUSTICE PROFESSOR-MONEY COUNTER Work Phone: [facility] 03-17-2025 10:19-0400 Diastolic blood pressure 82 mm[Hg] Leeann Castillo CRIMINAL JUSTICE PROFESSOR-MONEY COUNTER Work Phone: [facility] 03-17-2025 10:19-0400 Heart rate 76 /min Leeann Castillo CRIMINAL JUSTICE PROFESSOR-MONEY COUNTER Work Phone: [facility] 03-17-2025 10:19-0400 SaO2% (BldA) [Mass fraction] 98 % Leeann Castillo CRIMINAL JUSTICE PROFESSOR-MONEY COUNTER Work Phone: [facility] 03-17-2025 10:19-0400 Systolic blood pressure 140 mm[Hg] Leeann Castillo CRIMINAL JUSTICE PROFESSOR-MONEY COUNTER Work Phone: [facility] 03-11-2025 14:06-0400 Body height 180.3 cm Carolyn Paystrup INDUSTRIAL ANALYST Work Phone: [facility] 03-11-2025 14:06-0400 Body mass index (BMI) [Ratio] 34.87 kg/m2 Carolyn Paystrup INDUSTRIAL ANALYST Work Phone: [facility] 03-11-2025 14:06-0400 Body weight 113.4 kg Carolyn Paystrup INDUSTRIAL ANALYST Work Phone: [facility] 02-23-2025 10:45-0400 Body height 180.3 cm Mc Rusher DPM Work Phone: [facility] 02-23-2025 10:45-0400 Body mass index (BMI) [Ratio] 35.29 kg/m2 Mc Rusher DPM Work Phone: [facility] 02-23-2025 10:45-0400 Body weight 114.76 kg Mc Rusher DPM Work Phone: [facility] 02-03-2025 11:03-0400 Body height 180.3 cm Mc Rusher DPM Work Phone: [facility] 02-03-2025 11:03-0400 Body mass index (BMI) [Ratio] 35.29 kg/m2 Mc Rusher DPM Work Phone: [facility] 02-03-2025 11:03-0400 Body weight 114.76 kg Mc Chatman DPM Work Phone: [facility] 01-14-2025 11:20-0400 Body height 180.3 cm Alea Mckenzie MD Work Phone: [facility] 01-14-2025 11:20-0400 Body mass index (BMI) [Ratio] 35.15 kg/m2 Alea Mckenzie MD Work Phone: [facility] 01-14-2025 11:20-0400 Body weight 114.31 kg Alea Mckenzie MD Work Phone: [facility] 01-14-2025 11:20-0400 Diastolic blood pressure 83 mm[Hg] Alea Mckenzie MD Work Phone: [facility] 01-14-2025 11:20-0400 Heart rate 68 /min Alea Mckenzie MD Work Phone: [facility] 01-14-2025 11:20-0400 Systolic blood pressure 126 mm[Hg] Alea Mckenzie MD Work Phone: [facility] 01-07-2025 15:46-0400 Body height 180.3 cm Leeann Castillo CRIMINAL JUSTICE PROFESSOR-MONEY COUNTER Work Phone: [facility] 01-07-2025 15:46-0400 Body mass index (BMI) [Ratio] 35.43 kg/m2 Leeann Castillo CRIMINAL JUSTICE PROFESSOR-MONEY COUNTER Work Phone: [facility] 01-07-2025 15:46-0400 Body temperature 98.1 [degF] Leeann Castillo CRIMINAL JUSTICE PROFESSOR-MONEY COUNTER Work Phone: [facility] 01-07-2025 15:46-0400 Body weight 115.21 kg Leeann Castillo CRIMINAL JUSTICE PROFESSOR-MONEY COUNTER Work Phone: [facility] 01-07-2025 15:46-0400 Diastolic blood pressure 70 mm[Hg] Leeann Castillo CRIMINAL JUSTICE PROFESSOR-MONEY COUNTER Work Phone: [facility] 01-07-2025 15:46-0400 Heart rate 75 /min Leeann Castillo CRIMINAL JUSTICE PROFESSOR-MONEY COUNTER Work Phone: [facility] 01-07-2025 15:46-0400 SaO2% (BldA) [Mass fraction] 97 % Leeann Castillo CRIMINAL JUSTICE PROFESSOR-MONEY COUNTER Work Phone: [facility] 01-07-2025 15:46-0400 Systolic blood pressure 118 mm[Hg] Leeann Castillo CRIMINAL JUSTICE PROFESSOR-MONEY COUNTER Work Phone: [facility] 12-16-2024 10:47-0400 Body height 180.34 cm [facility] 12-16-2024 10:47-0400 Body mass index (BMI) [Ratio] 35.8 kg/m2 [facility] 12-16-2024 10:47-0400 Body temperature 98.5 [degF] [facility] 12-16-2024 10:47-0400 Body weight 116.57 kg [facility] 12-16-2024 10:47-0400 Diastolic blood pressure 64 mm[Hg] [facility] 12-16-2024 10:47-0400 Heart rate 72 /min [facility] 12-16-2024 10:47-0400 Respiratory rate 14 /min [facility] 12-16-2024 10:47-0400 SaO2% (BldA) [Mass fraction] 96 % [facility] 12-16-2024 10:47-0400 Systolic blood pressure 119 mm[Hg] [facility] 12-10-2024 15:46-0400 Body height 180.3 cm Nithin YOUNG Work Phone: [facility] 12-10-2024 15:46-0400 Body mass index (BMI) [Ratio] 35.29 kg/m2 Nithin YOUNG Work Phone: [facility] 12-10-2024 15:46-0400 Body weight 114.76 kg Nithin YOUNG Work Phone: [facility] 12-10-2024 15:46-0400 Diastolic blood pressure 80 mm[Hg] Nithin YOUNG Work Phone: [facility] 12-10-2024 15:46-0400 Heart rate 80 /min Nithin YOUNG Work Phone: [facility] 12-10-2024 15:46-0400 Systolic blood pressure 125 mm[Hg] Nithin YOUNG Work Phone: [facility] 12-02-2024 14:46-0400 Body height 180.3 cm Mc Chatman DPM Work Phone: [facility] 12-02-2024 14:46-0400 Body mass index (BMI) [Ratio] 35.29 kg/m2 Mc Chatman DPM Work Phone: [facility] 12-02-2024 14:46-0400 Body weight 114.76 kg Mc Chatman DPM Work Phone: [facility] 11-19-2024 12:38-0400 Body height 180.3 cm Tim Ibrahim MD Work Phone: [facility] 11-19-2024 12:38-0400 Body mass index (BMI) [Ratio] 35.29 kg/m2 Tim Ibrahim MD Work Phone: [facility] 11-19-2024 12:38-0400 Body weight 114.76 kg Tim Ibrahim MD Work Phone: [facility] 11-19-2024 12:38-0400 Diastolic blood pressure 90 mm[Hg] Tim Ibrahim MD Work Phone: [facility] 11-19-2024 12:38-0400 Systolic blood pressure 130 mm[Hg] Tim Ibrahim MD Work Phone: [facility] 11-19-2024 11:28-0400 Body height 180.3 cm Leeann Castillo APRN-MONEY COUNTER Work Phone: [facility] [employer] [facility] 11-19-2024 11:28-0400 Body mass index (BMI) [Ratio] 35.84 kg/m2 Leeann Castillo APRN-MONEY COUNTER Work Phone: [facility] 11-19-2024 11:28-0400 Body temperature 97.39 [degF] Leeann Castillo APRN-MONEY COUNTER Work Phone: [facility] 11-19-2024 11:28-0400 Body weight 116.57 kg Leeann Castillo APRN-MONEY COUNTER Work Phone: [facility] 11-19-2024 11:28-0400 Diastolic blood pressure 70 mm[Hg] Leeann Castillo APRN-MONEY COUNTER Work Phone: [facility] 11-19-2024 11:28-0400 Heart rate 75 /min Leeann Castillo APRN-MONEY COUNTER Work Phone: [facility] 11-19-2024 11:28-0400 SaO2% (BldA) [Mass fraction] 98 % Leeann Castillo APRN-MONEY COUNTER Work Phone: [facility] 11-19-2024 11:28-0400 Systolic blood pressure 120 mm[Hg] Leeann Castillo APRN-MONEY COUNTER Work Phone: [facility] 11-06-2024 13:53-0500 Body height 180.3 cm Apolinar LIGHT Work Phone: [facility] 11-06-2024 13:53-0500 Body mass index (BMI) [Ratio] 37.38 kg/m2 Apolinar Mckenzie LD Work Phone: [facility] 11-06-2024 13:53-0500 Body weight 121.56 kg Apolinar Mckenzie LD Work Phone: [facility] 10-22-2024 14:37-0500 Body height 180.3 cm Tim Ibrahim MD Work Phone: [facility] 10-22-2024 14:37-0500 Body mass index (BMI) [Ratio] 37.38 kg/m2 Tim Ibrahim MD Work Phone: [facility] 10-22-2024 14:37-0500 Body weight 121.56 kg Tim Ibrahim MD Work Phone: [facility] 10-22-2024 14:37-0500 Diastolic blood pressure 78 mm[Hg] Tim Ibrahim MD Work Phone: [facility] 10-22-2024 14:37-0500 Systolic blood pressure 132 mm[Hg] Tim Ibrahim MD Work Phone: [facility] 10-17-2024 11:37-0500 Diastolic blood pressure 72 mm[Hg] Shobha Delong CRIMINAL JUSTICE PROFESSOR-MONEY COUNTER Work Phone: [facility] 10-17-2024 11:37-0500 Systolic blood pressure 110 mm[Hg] Shobha Delong CRIMINAL JUSTICE PROFESSOR-MONEY COUNTER Work Phone: [facility] 10-17-2024 11:16-0500 Body mass index (BMI) [Ratio] 37.75 kg/m2 Shobha Delong CRIMINAL JUSTICE PROFESSOR-MONEY COUNTER Work Phone: [facility] 10-17-2024 11:16-0500 Body weight 119.34 kg Shobha Delong CRIMINAL JUSTICE PROFESSOR-MONEY COUNTER Work Phone: [facility] 10-17-2024 11:16-0500 Heart rate 64 /min Shobha Delong CRIMINAL JUSTICE PROFESSOR-MONEY COUNTER Work Phone: [facility] 09-29-2024 11:42-0500 Body height 177.8 cm Leeann Castillo CRIMINAL JUSTICE PROFESSOR-MONEY COUNTER Work Phone: [facility] 09-29-2024 11:42-0500 Body mass index (BMI) [Ratio] 38.31 kg/m2 Leeann Castillo CRIMINAL JUSTICE PROFESSOR-MONEY COUNTER Work Phone: [facility] 09-29-2024 11:42-0500 Body temperature 97.5 [degF] Leeann Castillo CRIMINAL JUSTICE PROFESSOR-MONEY COUNTER Work Phone: [facility] 09-29-2024 11:42-0500 Body weight 121.11 kg Leeann Castillo CRIMINAL JUSTICE PROFESSOR-MONEY COUNTER Work Phone: [facility] 09-29-2024 11:42-0500 Diastolic blood pressure 72 mm[Hg] Leeann Castillo CRIMINAL JUSTICE PROFESSOR-MONEY COUNTER Work Phone: [facility] 09-29-2024 11:42-0500 Heart rate 70 /min Leeann Castillo CRIMINAL JUSTICE PROFESSOR-MONEY COUNTER Work Phone: [facility] 09-29-2024 11:42-0500 SaO2% (BldA) [Mass fraction] 96 % Leeann Castillo CRIMINAL JUSTICE PROFESSOR-MONEY COUNTER Work Phone: [facility] 09-29-2024 11:42-0500 Systolic blood pressure 122 mm[Hg] Leeann Castillo CRIMINAL JUSTICE PROFESSOR-MONEY COUNTER Work Phone: [facility] 09-12-2024 09:30-0500 Body height 180.3 cm Yi YOUNG Work Phone: [facility] 09-12-2024 09:30-0500 Body mass index (BMI) [Ratio] 35.29 kg/m2 Yi YOUNG Work Phone: [facility] 09-12-2024 09:30-0500 Body weight 114.76 kg Yi Kim PA Work Phone: [facility] 09-01-2024 14:42-0500 Body height 180.3 cm Mc Chatman DPM Work Phone: [facility] 09-01-2024 14:42-0500 Body mass index (BMI) [Ratio] 32.78 kg/m2 Mc Chatman DPM Work Phone: [facility] 09-01-2024 14:42-0500 Body weight 106.59 kg Mc Chatman DPM Work Phone: [facility] 08-26-2024 12:25-0500 Diastolic blood pressure 65 mm[Hg] Pritesh Giles MD Work Phone: [facility] 08-26-2024 12:25-0500 SaO2% (BldA) [Mass fraction] 96 % Pritesh Giles MD Work Phone: [facility] 08-26-2024 12:25-0500 Systolic blood pressure 130 mm[Hg] [facility]ritesh [facility]iles MD [facility] 08-26-2024 10:44-0500 Body temperature 97.5 [degF] Pritesh Giles MD Work Phone: [facility] 08-26-2024 10:44-0500 Heart rate 67 /min Pritesh Giles MD Work Phone: [facility] 08-26-2024 10:44-0500 Respiratory rate 16 /min Pritesh Giles MD Work [facility] 08-11-2024 10:36-0500 Body height 177.8 cm Tim Ibrahim MD Work Phone: [facility] 08-11-2024 10:36-0500 Body mass index (BMI) [Ratio] 33.43 kg/m2 Tim Ibrahim MD Work Phone: [facility] 08-11-2024 10:36-0500 Body weight 105.69 kg Tim Ibrahim MD Work Phone: [facility] 08-11-2024 10:36-0500 Diastolic blood pressure 68 mm[Hg] Tim Ibrahim MD Work Phone: [facility] 08-11-2024 10:36-0500 Systolic blood pressure 118 mm[Hg] Tim Ibrahim MD Work Phone: [facility] 07-16-2024 11:30-0500 Body height 180.3 cm Gita Watts DO Work Phone: [facility] 07-16-2024 11:30-0500 Body mass index (BMI) [Ratio] 32.36 kg/m2 Gita Watts DO Work Phone: [facility] 07-16-2024 11:30-0500 Body weight 105.23 kg Gita Watts DO Work Phone: [facility] 07-16-2024 11:30-0500 Diastolic blood pressure 72 mm[Hg] Gita Watts DO Work Phone: [facility] 07-16-2024 11:30-0500 Heart rate 75 /min Gita Watts DO Work Phone: [facility] 07-16-2024 11:30-0500 Systolic blood pressure 142 mm[Hg] Gita Watts DO Work Phone: [facility] 06-26-2024 11:29-0400 Body mass index (BMI) [Ratio] 33.13 kg/m2 Alea Mckenzie MD Work Phone: [facility] 06-26-2024 11:29-0400 Body weight 104.74 kg Alea Mckenzie MD Work Phone: [facility] 06-26-2024 11:29-0400 Diastolic blood pressure 93 mm[Hg] Alea Mckenzie MD Work Phone: [facility] 06-26-2024 11:29-0400 Heart rate 65 /min Alea Mckenzie MD Work Phone: [facility] 06-26-2024 11:29-0400 Systolic blood pressure 162 mm[Hg] Alea [facility]ckenzie MD [facility] Phone[facility] 06-10-2024 11:24-0400 Body height 177.8 cm Leeann Castillo CRIMINAL JUSTICE PROFESSOR-MONEY COUNTER Work Phone: [facility] 06-10-2024 11:24-0400 Body mass index (BMI) [Ratio] 33.29 kg/m2 Leeann Castillo CRIMINAL JUSTICE PROFESSOR-MONEY COUNTER Work Phone: [facility] 06-10-2024 11:24-0400 Body temperature 97.81 [degF] Leeann Castillo CRIMINAL JUSTICE PROFESSOR-MONEY COUNTER Work Phone: [facility] 06-10-2024 11:24-0400 Body weight 105.23 kg Leeann Castillo CRIMINAL JUSTICE PROFESSOR-MONEY COUNTER Work Phone: [facility] 06-10-2024 11:24-0400 Diastolic blood pressure 60 mm[Hg] Leeann Castillo CRIMINAL JUSTICE PROFESSOR-MONEY COUNTER Work Phone: [facility] 06-10-2024 11:24-0400 Heart rate 74 /min Leeann Castillo CRIMINAL JUSTICE PROFESSOR-MONEY COUNTER Work Phone: [facility] 06-10-2024 11:24-0400 Respiratory rate 18 /min Leeann Castillo CRIMINAL JUSTICE PROFESSOR-MONEY COUNTER Work Phone: [facility] 06-10-2024 11:24-0400 SaO2% (BldA) [Mass fraction] 97 % Leeann Castillo CRIMINAL JUSTICE PROFESSOR-MONEY COUNTER Work Phone: [facility] 06-10-2024 11:24-0400 Systolic blood pressure 128 mm[Hg] Leeann Castillo CRIMINAL JUSTICE PROFESSOR-MONEY COUNTER Work Phone: [facility] 06-02-2024 14:22-0400 Body height 180.3 cm Mc Rusher DPM Work Phone: [facility] 06-02-2024 14:22-0400 Body mass index (BMI) [Ratio] 32.78 kg/m2 Mc Rusher DPM Work Phone: [facility] 06-02-2024 14:22-0400 Body weight 106.59 kg Mc Rusher DPM Work Phone: [facility] 05-19-2024 09:22-0400 Body height 180.3 cm Mc Rusher DPM Work Phone: [facility] 05-19-2024 09:22-0400 Body mass index (BMI) [Ratio] 32.78 kg/m2 Mc Rus DPM Work Phone: [facility] 05-19-2024 09:22-0400 Body weight 106.59 kg Mc Chatman DPM Work Phone: [facility] 05-01-2024 10:45-0400 Body height 180.3 cm Nini Leos DPM Work Phone: [facility] 05-01-2024 10:45-0400 Body mass index (BMI) [Ratio] 34.17 kg/m2 Nini Leos DPM Work Phone: [facility] 05-01-2024 10:45-0400 Body weight 111.13 kg Nini Leos DPM Work Phone: [facility] 04-03-2024 13:03-0400 Body height 177.8 cm Vanessa Prabhakar MD Work Phone: [facility] 04-03-2024 13:03-0400 Body mass index (BMI) [Ratio] 33.72 kg/m2 Vanessa Prabhakar MD Work Phone: [facility] 04-03-2024 13:03-0400 Body weight 106.59 kg Vanessa Prabhakar MD Work Phone: [facility] 04-03-2024 13:03-0400 Diastolic blood pressure 90 mm[Hg] Vanessa Prabhakar MD Work Phone: [facility] 04-03-2024 13:03-0400 Heart rate 71 /min Vanessa Prabhakar MD Work Phone: [facility] 04-03-2024 13:03-0400 Systolic blood pressure 155 mm[Hg] Vanessa Prabhakar MD Work Phone: [facility] 03-14-2024 11:40-0400 Body height 177.8 cm Leeann STEWART Work Phone: [facility] 03-14-2024 11:40-0400 Body mass index (BMI) [Ratio] 33.72 kg/m2 Leeann Castillo CRIMINAL JUSTICE PROFESSOR-MONEY COUNTER Work Phone: [facility] 03-14-2024 11:40-0400 Body temperature 98.1 [degF] Leeann Castillo CRIMINAL JUSTICE PROFESSOR-MONEY COUNTER Work Phone: [facility] 03-14-2024 11:40-0400 Body weight 106.59 kg Leeann Castillo CRIMINAL JUSTICE PROFESSOR-MONEY COUNTER Work Phone: [facility] 03-14-2024 11:40-0400 Diastolic blood pressure 72 mm[Hg] Leeann Castillo CRIMINAL JUSTICE PROFESSOR-MONEY COUNTER Work Phone: [facility] 03-14-2024 11:40-0400 Heart rate 70 /min Leeann Castillo CRIMINAL JUSTICE PROFESSOR-MONEY COUNTER Work Phone: [facility] 03-14-2024 11:40-0400 Respiratory rate 18 /min Leeann Castillo APRN-MONEY COUNTER Work Phone: [facility] 03-14-2024 11:40-0400 SaO2% (BldA) [Mass fraction] 96 % Leeann Castillo CRIMINAL JUSTICE PROFESSOR-MONEY COUNTER Work Phone: [facility] 03-14-2024 11:40-0400 Systolic blood pressure 118 mm[Hg] Leeann Castillo CRIMINAL JUSTICE PROFESSOR-MONEY COUNTER Work Phone: [facility] 02-06-2024 15:18-0400 Body height 177.8 cm Nathan Blankenship MD Work Phone: [facility] 02-06-2024 15:18-0400 Body mass index (BMI) [Ratio] 34.87 kg/m2 Nathan Blankenship MD Work Phone: [facility] 02-06-2024 15:18-0400 Body weight 110.22 kg Nathan Blankenship MD Work Phone: [facility] 02-06-2024 15:18-0400 Diastolic blood pressure 94 mm[Hg] Nathan Blankenship MD Work Phone: [facility] 02-06-2024 15:18-0400 Heart rate 80 /min Nathan Blankenship MD Work Phone: [facility] 02-06-2024 15:18-0400 Systolic blood pressure 155 mm[Hg] Nathan Blankenship MD Work Phone: [facility] 01-22-2024 14:17-0400 Body height 180.3 cm Gita Watts DO Work Phone: [facility] 01-22-2024 14:17-0400 Body mass index (BMI) [Ratio] 34.31 kg/m2 Gita Watts DO Work Phone: [facility] 01-22-2024 14:17-0400 Body weight 111.58 kg Gita Watts DO Work Phone: [facility] 01-22-2024 14:17-0400 Diastolic blood pressure 78 mm[Hg] Gita Watts DO Work Phone: [facility] 01-22-2024 14:17-0400 Heart rate 72 /min Gita Watts DO Work Phone: [facility] 01-22-2024 14:17-0400 Systolic blood pressure 152 mm[Hg] Gita Watts DO Work Phone: [facility] 12-31-2023 11:25-0400 Body height 177.8 cm Kayden Morse MD Work Phone: [facility] 12-31-2023 11:25-0400 Body mass index (BMI) [Ratio] 34.87 kg/m2 Kayden Morse MD Work Phone: [facility] 12-31-2023 11:25-0400 Body temperature 97.81 [degF] Kayden Morse MD Work Phone: [facility] 12-31-2023 11:25-0400 Body weight 110.22 kg Kayden Morse MD Work Phone: [facility] 12-31-2023 11:25-0400 Diastolic blood pressure 84 mm[Hg] Kayden Morse MD Work Phone: [facility] 12-31-2023 11:25-0400 Heart rate 74 /min Kayden Morse MD Work Phone: [facility] 12-31-2023 11:25-0400 Respiratory rate 18 /min Kayden Morse MD Work Phone: [facility] 12-31-2023 11:25-0400 SaO2% (BldA) [Mass fraction] 98 % Kayden Morse MD Work Phone: [facility] 12-31-2023 11:25-0400 Systolic blood pressure 144 mm[Hg] Kayden Morse MD Work Phone: [facility] 12-14-2023 11:27-0400 Body height 177.8 cm Leeann Castillo CRIMINAL JUSTICE PROFESSOR-MONEY COUNTER Work Phone: [facility] 12-14-2023 11:27-0400 Body mass index (BMI) [Ratio] 36.01 kg/m2 Leaenn Castillo CRIMINAL JUSTICE PROFESSOR-MONEY COUNTER Work Phone: [facility] 12-14-2023 11:27-0400 Body temperature 98.2 [degF] Leeann Castillo CRIMINAL JUSTICE PROFESSOR-MONEY COUNTER Work Phone: [facility] 12-14-2023 11:27-0400 Body weight 113.85 kg Leeann Castillo CRIMINAL JUSTICE PROFESSOR-MONEY COUNTER Work Phone: [facility] 12-14-2023 11:27-0400 Diastolic blood pressure 82 mm[Hg] Leeann Castillo CRIMINAL JUSTICE PROFESSOR-MONEY COUNTER Work Phone: [facility] 12-14-2023 11:27-0400 Heart rate 64 /min Leeann Castillo CRIMINAL JUSTICE PROFESSOR-MONEY COUNTER Work Phone: [facility] 12-14-2023 11:27-0400 Respiratory rate 18 /min Leeann Castillo CRIMINAL JUSTICE PROFESSOR-MONEY COUNTER Work Phone: [facility] 12-14-2023 11:27-0400 SaO2% (BldA) [Mass fraction] 97 % Leeann Castillo CRIMINAL JUSTICE PROFESSOR-MONEY COUNTER Work Phone: [facility] 12-14-2023 11:27-0400 Systolic blood pressure 148 mm[Hg] Leeann Castillo CRIMINAL JUSTICE PROFESSOR-MONEY COUNTER Work Phone: [facility] 12-11-2023 16:06-0400 Body height 177.8 cm Apolinar Mckenzie LD Work Phone: [facility] 12-11-2023 16:06-0400 Body mass index (BMI) [Ratio] 35.44 kg/m2 Apolinar Mckenzie LD Work Phone: [facility] 12-11-2023 16:06-0400 Body weight 112.04 kg Apolinar Mckenzie LD Work Phone: [facility] 11-26-2023 09:59-0400 Body height 177.8 cm Ashley [facility] PA [facility] 11-26-2023 09:59-0400 Body mass index (BMI) [Ratio] 36.3 kg/m2 Ashley Jennifer PA Work Phone: [facility] 11-26-2023 09:59-0400 Body weight 114.76 kg Ashley Jennifer PA Work Phone[facility] 11-26-2023 09:59-0400 Diastolic blood pressure 71 mm[Hg] Ashley Jennifer PA Work [facility] 11-26-2023 09:59-0400 Heart rate 70 /min Ashley Jennifer PA Work Phone: [facility] 11-26-2023 09:59-0400 Systolic blood pressure 112 mm[Hg] Ashley Jennifer PA Work Phone: [facility] 11-15-2023 13:54-0400 Body height 177.8 cm Leeann Castillo APRN-MONEY COUNTER Work Phone: [facility] 11-15-2023 13:54-0400 Body mass index (BMI) [Ratio] 36.3 kg/m2 Leeann Castillo APRN-MONEY COUNTER Work Phone: [facility] 11-15-2023 13:54-0400 Body temperature 97.7 [degF] Leeann Castillo APRN-MONEY COUNTER Work Phone: [facility] 11-15-2023 13:54-0400 Body weight 114.76 kg Leeann Castillo CRIMINAL JUSTICE PROFESSOR-MONEY COUNTER Work Phone: [facility] 11-15-2023 13:54-0400 Diastolic blood pressure 67 mm[Hg] Leeann Castillo APRN-MONEY COUNTER Work Phone: [facility] 11-15-2023 13:54-0400 Heart rate 68 /min Leeann Castillo APRN-MONEY COUNTER Work Phone: [facility] 11-15-2023 13:54-0400 Respiratory rate 20 /min Leeann Castillo APRN-MONEY COUNTER Work Phone: [facility] 11-15-2023 13:54-0400 SaO2% (BldA) [Mass fraction] 98 % Leeann Castillo APRN-MONEY COUNTER Work Phone: [facility] 11-15-2023 13:54-0400 Systolic blood pressure 118 mm[Hg] Leeann Castillo APRN-MONEY COUNTER Work Phone: [facility] 11-01-2023 13:32-0500 Body height 177.8 cm Mynor Steen MD Work Phone: [facility] 11-01-2023 13:32-0500 Body mass index (BMI) [Ratio] 35.58 kg/m2 Mynor Steen MD Work Phone: [facility] 11-01-2023 13:32-0500 Body weight 112.49 kg Mynor Steen MD Work Phone: [facility] 11-01-2023 13:32-0500 Diastolic blood pressure 82 mm[Hg] Mynor Steen MD Work Phone: [facility] 11-01-2023 13:32-0500 Heart rate 72 /min Mynor Steen MD Work Phone: [facility] 11-01-2023 13:32-0500 Systolic blood pressure 131 mm[Hg] Mynor Steen MD Work Phone: [facility] 10-17-2023 12:39-0500 Body height 180.3 cm Tesha Gavin CRIMINAL JUSTICE PROFESSOR-MONEY COUNTER Work Phone: [facility] 10-17-2023 12:39-0500 Body mass index (BMI) [Ratio] 34.73 kg/m2 Tesha Gavin CRIMINAL JUSTICE PROFESSOR-MONEY COUNTER Work Phone: [facility] 10-17-2023 12:39-0500 Body weight 112.95 kg Tesha Gavin CRIMINAL JUSTICE PROFESSOR-MONEY COUNTER Work Phone: [facility] 10-17-2023 12:39-0500 Diastolic blood pressure 82 mm[Hg] Tesha Gavin CRIMINAL JUSTICE PROFESSOR-MONEY COUNTER Work Phone: [facility] 10-17-2023 12:39-0500 Heart rate 76 /min Teshajean Gavin CRIMINAL JUSTICE PROFESSOR-MONEY COUNTER Work Phone: [facility] 10-17-2023 12:39-0500 Systolic blood pressure 142 mm[Hg] Tesha Gavin CRIMINAL JUSTICE PROFESSOR-MONEY COUNTER Work Phone: [facility] 10-15-2023 14:36-0500 Body height 180.3 cm Veronica De Jesus CRIMINAL JUSTICE PROFESSOR-PRODUCT RESPONSIBILITY LIAISON Work Phone: [facility] 10-15-2023 14:36-0500 Body mass index (BMI) [Ratio] 34.61 kg/m2 Veronica De Jesus CRIMINAL JUSTICE PROFESSOR-PRODUCT RESPONSIBILITY LIAISON Work Phone: [facility] 10-15-2023 14:36-0500 Body temperature 97.3 [degF] Veronica Kuns CRIMINAL JUSTICE PROFESSOR-PRODUCT RESPONSIBILITY LIAISON Work Phone: [facility] 10-15-2023 14:36-0500 Body weight 112.49 kg Veronica De Jesus APRN-PRODUCT RESPONSIBILITY LIAISON Work Phone: [facility] 10-15-2023 14:36-0500 Diastolic blood pressure 68 mm[Hg] Veronica De Jesus APRN-PRODUCT RESPONSIBILITY LIAISON Work Phone: [facility] 10-15-2023 14:36-0500 SaO2% (BldA) [Mass fraction] 95 % Veronica De Jesus APRN-PRODUCT RESPONSIBILITY LIAISON Work Phone: [facility] 10-15-2023 14:36-0500 Systolic blood pressure 120 mm[Hg] Veronica De Jesus APRN-PRODUCT RESPONSIBILITY LIAISON Work Phone: [facility] 10-09-2023 12:00-0500 Body temperature 98.1 [degF] [facility] 10-09-2023 12:00-0500 Diastolic blood pressure 73 mm[Hg] [facility] 10-09-2023 12:00-0500 Heart rate 75 /min [facility] 10-09-2023 12:00-0500 Respiratory rate 18 /min [facility] 10-09-2023 12:00-0500 SaO2% (BldA) [Mass fraction] 98 % [facility] 10-09-2023 12:00-0500 Systolic blood pressure 123 mm[Hg] [facility] 10-09-2023 01:32-0500 Body weight 111.4 kg [facility] 10-06-2023 11:39-0500 Body height 177.8 cm [facility] 10-06-2023 10:53-0500 Diastolic blood pressure 97 mm[Hg] [facility] 10-06-2023 10:53-0500 Heart rate 79 /min [facility] 10-06-2023 10:53-0500 Respiratory rate 18 /min [facility] 10-06-2023 10:53-0500 SaO2% (BldA) [Mass fraction] 99 % [facility] 10-06-2023 10:53-0500 Systolic blood pressure 175 mm[Hg] [facility] 10-06-2023 04:04-0500 Body weight 113 kg [facility] 10-06-2023 04:00-0500 Body temperature 97.6 [degF] [facility] 10-04-2023 08:21-0500 Body height 180.34 cm [facility] 09-19-2023 13:09-0500 Body height 193 cm Yari Verhoff PA-C Work Phone: [facility] 09-19-2023 13:09-0500 Body mass index (BMI) [Ratio] 31.4 kg/m2 Yari Verhoff PA-C Work Phone: [facility] 09-19-2023 13:09-0500 Body weight 117.03 kg Yari Verhoff PA-C Work Phone: [facility] 09-19-2023 13:09-0500 Diastolic blood pressure 58 mm[Hg] Yari Verhoff PA-C Work Phone: [facility] 09-19-2023 13:09-0500 Heart rate 69 /min Yari Verhoff PA-C Work Phone: [facility] 09-19-2023 13:09-0500 Respiratory rate 20 /min Yari Verhoff PA-C Work Phone: [facility] 09-19-2023 13:09-0500 Systolic blood pressure 141 mm[Hg] Yari Verhoff PA-C Work Phone: [facility] 09-11-2023 12:56-0500 Body height 193 cm Tom Paniagua DO Work Phone: [facility] 09-11-2023 12:56-0500 Body mass index (BMI) [Ratio] 31.92 kg/m2 Tom Paniagua DO Work Phone: [facility] 09-11-2023 12:56-0500 Body temperature 97.81 [degF] Tom Paniagua DO Work Phone: [facility] 09-11-2023 12:56-0500 Body weight 118.93 kg Tom Paniagua DO Work Phone: [facility] 09-11-2023 12:56-0500 Diastolic blood pressure 76 mm[Hg] Tom Ruckers DO Work Phone: [facility] 09-11-2023 12:56-0500 Heart rate 78 /min Tom Paniagua DO Work Phone: [facility] 09-11-2023 12:56-0500 SaO2% (BldA) [Mass fraction] 96 % Tom Paniagua DO Work Phone: [facility] 09-11-2023 12:56-0500 Systolic blood pressure 128 mm[Hg] Tom Paniagua DO Work Phone: [facility] 03-15-2023 15:53-0400 Body height 180.34 cm Tom Paniagua Work Phone: [facility] [address] DO Work Phone: 03-15-2023 15:53-0400 Body mass index (BMI) [Ratio] 34.9 kg/m2 Tom Paniagua Work Phone: [facility] [facility] DO Work Phone: 03-15-2023 15:53-0400 Body surface area Derived from formula 2.32 m2 Tom Paniagua Work Phone: [facility] [address] DO Work Phone: 03-15-2023 15:53-0400 Body weight 113.51 kg Tom Paniagua Work Phone: [facility] [address] DO Work Phone: 03-15-2023 15:53-0400 Diastolic blood pressure 60 mm[Hg] Tom Paniagua Work Phone: [facility] [address] DO Work Phone: 03-15-2023 15:53-0400 Heart rate 75 /min Tom Paniagua Work Phone: [facility] [address] DO Work Phone: 03-15-2023 15:53-0400 Systolic blood pressure 132 mm[Hg] Tom Paniagua Work Phone: [facility] [address] DO Work Phone: 01-04-2023 19:28-0400 Body height 180.3 cm Etta Oakes CNP Work Phone: [facility] 01-04-2023 19:28-0400 Body mass index (BMI) [Ratio] 33.91 kg/m2 Ettaomega Oakes CNP Work Phone: [facility] 01-04-2023 19:28-0400 Body temperature 97.9 [degF] Etta Oakes CNP Work Phone: [facility] 01-04-2023 19:28-0400 Body weight 110.27 kg Etta Oakes CNP Work Phone: [facility] 01-04-2023 19:28-0400 Diastolic blood pressure 81 mm[Hg] Ettaomega Oakes CNP Work Phone: [facility] 01-04-2023 19:28-0400 Heart rate 88 /min Etta Oakes CNP Work Phone: [facility] 01-04-2023 19:28-0400 Respiratory rate 16 /min Etta Oakes CNP Work Phone: [facility] 01-04-2023 19:28-0400 SaO2% (BldA) [Mass fraction] 97 % Etta Oakes CNP Work Phone: [facility] 01-04-2023 19:28-0400 Systolic blood pressure 137 mm[Hg] Ettaomega Oakes CNP Work Phone: [facility] 07-06-2022 12:30-0400 Body height 181.61 cm Lula Del Rosario Other [employer] Other 07-06-2022 12:30-0400 Body mass index (BMI) [Ratio] 34.65 kg/m2 Lula Del Rosario Other [employer] Other 07-06-2022 12:30-0400 Body temperature 97.3 [degF] Lula Del Rosario Other [facility] Other 07-06-2022 12:30-0400 Body weight 114.31 kg Lula Del Rosario Other [facility] Other 07-06-2022 12:30-0400 Diastolic blood pressure 96 mm[Hg] Lula Del Rosario Other [facility] Other 07-06-2022 12:30-0400 SaO2% (BldA) [Mass fraction] 98 % Lula Del Rosario Other [facility] Other 07-06-2022 12:30-0400 Systolic blood pressure 154 mm[Hg] Lula Del Rosario Other [facility] Other 11-20-2021 19:15-0400 Diastolic blood pressure 94 mm[Hg] No [facility] Work Phone: 11-20-2021 19:15-0400 Heart rate 99 /min No [facility] Work Phone: 11-20-2021 19:15-0400 Respiratory rate 16 /min No [facility] Work Phone: 11-20-2021 19:15-0400 SaO2% (BldA) [Mass fraction] 99 % No [facility] Work Phone: 11-20-2021 19:15-0400 Systolic blood pressure 191 mm[Hg] No Provider [facility] Work Phone: 11-20-2021 14:56-0400 Body height 180.34 cm No Provider [facility] Work Phone: 11-20-2021 14:56-0400 Body mass index (BMI) [Ratio] 34.2 kg/m2 No Provider [facility] Work Phone: 11-20-2021 14:56-0400 Body temperature 98.2 [degF] No Provider [facility] Work Phone: 11-20-2021 14:56-0400 Body weight 111.13 kg No Provider [facility] Work Phone: Encounters Encounter Date Encounter Type Care Provider Facility Start: 03-19-2025 End: 03-19-2025 Office outpatient visit 25 minutes Gita Watts DO Work Phone: [facility] Comment on above: ASHD (arteriosclerot ic heart disease); History of coronary artery bypass graft; History of PTCA; Shortness of breath; Type 2 diabetes mellitus without complication, with long-term current use of insulin; Anxiety; Never smoked cigarettes; BMI 35.0-35.9,adult; Mixed hyperlipidemia Start: 03-17-2025 End: 03-17-2025 Office outpatient visit 25 minutes Mc Chatman DP Work Phone: [facility] Comment on above: Ulcer of right foot with fat layer exposed (HCC) (Primary Dx); Contusion of lesser toe of left foot without damage to nail, subsequent encounter; Dermatophytosis of nail; Dystrophic nail; Corns and callosities; Diabetic polyneuropathy associated with type 2 diabetes mellitus (HCC) Start: 03-17-2025 End: 03-17-2025 ambulatory MC CHATMAN Not Available Start: 03-17-2025 End: 03-17-2025 Patient encounter procedure Leeann Castillo CRIMINAL JUSTICE PROFESSOR-MONEY COUNTER Work Phone: [facility]/Kayden Morse MD Comment on above: Medicare annual well ness visit, subsequent (Primary Dx); Type 2 diabetes mellitus with diabetic peripheral angiopathy without gangrene, with long-term current use of insulin ([facility]); Primary hypertension; Pseudodementia; Obesity, morbid ([facility]); CAD, multiple vessel; Mixed hyperlipidemia; Moderate episode of recurrent major depressive disorder ([facility]); Gait disturbance; Incontinence of feces, unspecified fecal incontinence type Start: 03-17-2025 End: 03-17-2025 ambulatory [facility] Start: 03-11-2025 End: 03-11-2025 Bamboo flowsheet Carolyn Paystrup INDUSTRIAL ANALYST Work Phone: [facility] Start: 03-11-2025 End: 03-11-2025 Bamboo flowsheet Carolyn Paystrup INDUSTRIAL ANALYST Work Phone: [facility] Start: 03-11-2025 End: 03-11-2025 Office outpatient new 45 minutes Carolyn Paystrup INDUSTRIAL ANALYST Work Phone: [facility] Comment on above: Arthritis of right s houlder (Primary Dx); Pre-op exam; Type 2 diabetes mellitus with diabetic peripheral angiopathy without gangrene, with long-term current use of insulin ([facility]); Mixed hyperlipidemia ; Primary hypertension ; History of PTCA; Constipation, unspecified constipation type; Depression, unspecified depression type ; CANDIDA (generalized anxiety disorder) ; Severe episode of recurrent major depressive disorder, without psychotic features ([facility]); Obsessive-compulsive disorder, unspecified type Start: 03-11-2025 End: 03-11-2025 Preprocedural examination done Carolyn Paystrup INDUSTRIAL ANALYST Work Phone: [facility] Work Phone: Start: 03-11-2025 End: 03-11-2025 ambulatory CAROLYN PAYSTRUP Not Available Start: 03-01-2025 End: 03-04-2025 Refill [facility] CRIMINAL JUSTICE PROFESSOR-MONEY COUNTER Work Phone: [facility] Internal Medicine/Kayden Morse MD Start: 02-23-2025 End: 02-23-2025 Bamboo flowsheet Mc BETHEAM Work Phone: [facility] Start: 02-23-2025 End: 02-23-2025 Bamboo flowsheet Mc Chatman DPM Work Phone: [facility] Start: 02-23-2025 End: 02-23-2025 Office outpatient visit 15 minutes Mc Cahtman DPM Work Phone: [facility] Comment on above: Diabetic polyneuropa thy associated with type 2 diabetes mellitus (HCC) (Primary Dx); Ulcer of left foot with fat layer exposed (HCC); Hammer toe of left foot Start: 02-23-2025 End: 02-23-2025 ambulatory MC CHATMAN Not Available Start: 02-03-2025 End: 02-03-2025 ambulatory MC CHATMAN Not Available Start: 02-03-2025 End: 02-03-2025 Office outpatient visit 25 minutes Mc Chatman DPM Work Phone: [facility] Comment on above: Ulcer of left foot w ith fat layer exposed (CMS/HCC) (Primary Dx); Diabetic polyneuropathy associated with type 2 diabetes mellitus (CMS/HCC); Dermatophytosis of nail; Contusion of lesser toe of left foot without damage to nail, initial encounter Start: 01-28-2025 ambulatory SHAI FARFAN [facility] Start: 01-18-2025 End: 01-18-2025 Emergency department patient visit LEEANN CASTILLO [facility] Start: 01-18-2025 ambulatory Vincent Oliveira Facility:[facility] Start: 01-14-2025 End: 01-14-2025 Office outpatient visit 25 minutes Alea Mckenzie MD Work Phone: [facility] Adult Endocrinology, A Department of [facility] Comment on above: Type 2 diabetes wendy itus with diabetic peripheral angiopathy without gangrene, with long-term current use of insulin ([facility]) (Primary Dx) Start: 01-14-2025 End: 01-19-2025 ambulatory ALEA MCKENZIE [facility] Start: 01-08-2025 End: 01-13-2025 Telephone encounter Soraya Jackson [facility] Neurology, A Department of [facility] Comment on above: New Patient Start: 01-07-2025 End: 01-07-2025 Office outpatient visit 15 minutes [facility] CRIMINAL JUSTICE PROFESSOR-MONEY COUNTER Work Phone: [facility] Internal Medicine/Kayden Morse MD Comment on above: Gait disturbance (Pr imary Dx); Moderate episode of recurrent major depressive disorder ([facility]) Start: 01-07-2025 End: 01-07-2025 ambulatory [facility] Start: 12-31-2024 End: 12-31-2024 Emergency department patient visit [facility] Start: 12-16-2024 End: 12-16-2024 ambulatory [facility] Work Phone: Start: 12-16-2024 End: 12-16-2024 Patient encounter procedure [facility] Work Phone: Start: 12-15-2024 End: 12-15-2024 Telephone encounter Alea Mckenzie MD Work Phone: [facility] Adult Endocrinology, A Department of [facility] Start: 12-10-2024 End: 12-10-2024 Office outpatient visit 15 minutes Nithin YOUNG Work Phone: [facility] Comment on above: Urinary retention (P rimary Dx) Start: 12-10-2024 End: 12-10-2024 ambulatory NITHIN OROZCO [facility] Start: 12-02-2024 End: 12-02-2024 Office outpatient visit 15 minutes Mc Chatman DPM Work Phone: [facility] Comment on above: Diabetic polyneuropa thy associated with type 2 diabetes mellitus ([facility]) (Primary Dx); Dermatophytosis of nail; Dystrophic nail Start: 12-02-2024 End: 12-02-2024 ambulatory MC CHATMAN Not Available Start: 12-02-2024 End: 12-02-2024 Bamboo flowsheet Mc Chatman DPM Work Phone: [facility] Start: 12-02-2024 End: 12-02-2024 Bamboo flowsheet Mc Chatman DPM Work Phone: [facility] Start: 11-28-2024 End: 11-28-2024 Bamboo flowsheet Yi Kim PA Work Phone: [facility] Start: 11-28-2024 End: 11-28-2024 Bamboo flowsheet Yi Kim PA Work Phone: [facility] Start: 11-28-2024 End: 11-28-2024 Office outpatient visit 10 minutes Yi YOUNG Work Phone: [facility] Comment on above: Acute pain of right shoulder (Primary Dx); Rotator cuff tear arthropathy of right shoulder Start: 11-28-2024 End: 11-28-2024 ambulatory YI KIM Not Available Start: 11-19-2024 End: 11-19-2024 Office outpatient visit 25 minutes Tim Ibrahim MD Work Phone: [facility], A Department of [facility] Comment on above: Other constipation ( Primary Dx); Antiplatelet or antithrombotic long-term use; History of colon polyps Start: 11-19-2024 End: 11-19-2024 ambulatory TIM IBRAHIM [facility] Start: 11-19-2024 End: 11-19-2024 ambulatory [facility] Start: 11-19-2024 End: 11-19-2024 Office outpatient visit 15 minutes [facility] SONIDO-MONEY COUNTER Work Phone: [facility] Internal Medicine/Kayden Morse MD Comment on above: Primary hypertension (Primary Dx); Type 2 diabetes mellitus with diabetic peripheral angiopathy without gangrene, with long-term current use of insulin ([facility]); Chronic diastolic CHF (congestive heart failure) ([facility]); CAD, multiple vessel Start: 11-14-2024 End: 11-14-2024 Telephone encounter Alethea Arteaga [facility] Adult [facility]ocrinology, A Department of [facility] Start: 11-14-2024 End: 11-14-2024 ambulatory YI KIM Not Available Start: 11-06-2024 End: 11-06-2024 ambulatory APOLINAR MCKENZIE [facility] Start: 11-06-2024 End: 11-06-2024 Nutrition therapy Apolinar Mckenzie NADEGE Work Phone: [facility] Comment on above: Type 2 diabetes wendy itus with diabetic peripheral angiopathy without gangrene, with long-term current use of insulin ([facility]) Start: 11-03-2024 ambulatory YI KIM [facility] Start: 10-31-2024 End: 10-31-2024 Bamboo flowsheet Yi YOUNG Work Phone: [facility] Start: 10-31-2024 End: 10-31-2024 Bamboo flowsheet Yi YOUNG Work Phone: [facility] Start: 10-31-2024 End: 10-31-2024 Office outpatient visit 25 minutes Yi YOUNG Work Phone: [facility] Comment on above: Acute pain of right shoulder (Primary Dx); Acute pain of left shoulder; Arthritis of left shoulder region; Arthritis of left acromioclavicular joint; Arthritis of right acromioclavicular joint Start: 10-31-2024 End: 10-31-2024 ambulatory YI KIM Not Available Start: 10-22-2024 End: 10-22-2024 Office outpatient visit 25 minutes Tim Ibrahim MD Work Phone: [facility] Comment on above: Constipation, unspec ified constipation type (Primary Dx); Left lateral abdominal pain; Antiplatelet or antithrombotic long-term use; CAD, multiple vessel Start: 10-22-2024 End: 10-22-2024 ambulatory TIM IBRAHIM [facility] Start: 10-20-2024 End: 10-20-2024 Telephone encounter Shobha Delong CRIMINAL JUSTICE PROFESSOR-MONEY COUNTER Work Phone: [facility] Start: 10-17-2024 End: 10-17-2024 ambulatory SHOBHA DELONG [facility] Start: 10-17-2024 End: 10-17-2024 Office outpatient visit 25 minutes Shobha Delong CRIMINAL JUSTICE PROFESSOR-MONEY COUNTER Work Phone: [facility]ocr[facility]ology, A Department of [facility] Comment on above: Type 2 diabetes wendy itus with diabetic peripheral angiopathy without gangrene, with long-term current use of insulin ([facility]) (Primary Dx); Mixed hyperlipidemia Start: 10-17-[address] [facility] Start: 10-06-2024 ambulatory YI KIM [facility] Start: 10-03-2024 End: 10-03-2024 ambulatory [facility] Start: 09-29-2024 End: 09-29-2024 Office outpatient visit 25 minutes [facility] CRIMINAL JUSTICE PROFESSOR-MONEY COUNTER Work Phone: [facility] Internal Medicine/Kayden Morse MD Comment on above: Essential hypertensi on (Primary Dx); Mixed hyperlipidemia; Chronic diastolic CHF (congestive heart failure) ([facility]); Type 2 diabetes mellitus with diabetic peripheral angiopathy without gangrene, with long-term current use of insulin ([facility]) Start: 09-29-2024 End: 09-29-2024 ambulatory [facility] Start: 09-26-2024 End: 09-26-2024 Bamboo flowsheet Yi YOUNG Work Phone: [facility] Start: 09-26-2024 End: 09-26-2024 Bamboo flowsheet Yi YOUNG Work Phone: [facility] Start: 09-26-2024 End: 09-26-2024 ambulatory YI KIM [facility] Start: 09-26-2024 End: 09-26-2024 Office outpatient visit 25 minutes Yi YOUNG Work Phone: [facility] Comment on above: Acute pain of right knee (Primary Dx); Traumatic hematoma of right knee, subsequent encounter; Left hip pain; Stiffness of hip joint, unspecified laterality; Gait difficulty Start: 09-26-2024 End: 09-26-2024 ambulatory YI J JULIO Not Available Start: 09-12-2024 End: 09-12-2024 Bamboo flowsheet Yi Kim PA Work Phone: [facility] Start: 09-12-2024 End: 09-12-2024 Bamboo flowsheet Yi Kim PA Work Phone: [facility] Start: 09-12-2024 End: 09-12-2024 ambulatory YI J JULIO Not Available Start: 09-12-2024 End: 09-12-2024 Office outpatient visit 15 minutes Yi YOUNG Work Phone: [facility] Comment on above: Acute pain of right knee (Primary Dx); History of bilateral knee replacement; Traumatic hematoma of right knee, initial encounter Start: 09-02-2024 End: 09-02-2024 ambulatory [facility] Start: 09-01-2024 End: 09-01-2024 ambulatory MC CHATMAN Not Available Start: 09-01-2024 End: 09-01-2024 Office outpatient visit 15 minutes Mc Chatman DPM Work Phone: [facility] Comment on above: Corns and callositie s (Primary Dx); Diabetic polyneuropathy associated with type 2 diabetes mellitus ([facility]); Dermatophytosis of nail; Dystrophic nail Start: 09-01-2024 End: 09-01-2024 Bamboo flowsheet Mc Chatman DPM Work Phone: [facility] Start: 09-01-2024 End: 09-01-2024 Bamboo flowsheet Mc Chatman DPM Work Phone: [facility] Start: 08-26-2024 End: 08-26-2024 Emergency department patient visit Pritesh Giles MD Work Phone: [facility] Comment on above: Bilateral leg edema (Primary Dx); Venous stasis dermatitis Start: 08-11-2024 End: 08-11-2024 ambulatory TIM IBRAHIM [facility] Start: 08-11-2024 End: 08-11-2024 Office outpatient new 30 minutes Tim Ibrahim MD Work Phone: [facility] Comment on above: Constipation, unspec ified constipation type (Primary Dx); Abdominal pain, unspecified abdominal location Start: 08-08-2024 End: 08-08-2024 ambulatory PHIL WILCOX [facility] Start: 08-08-2024 End: 08-08-2024 Subsequent hospital visit by physician [facility] Start: 07-16-2024 End: 07-16-[address] [facility] Ambulatory Start: 07-16-2024 End: 07-16-2024 Office outpatient visit 25 minutes [facility] Work Phone: [facility] Comment on above: CAD, multiple vessel ; History of coronary artery bypass graft; History of PTCA; Mixed hyperlipidemia; Primary hypertension; Body mass index (BMI) of 32.0 to 32.9 in adult; Never smoked cigarettes; Type 2 diabetes mellitus without complication, with long-term current use of insulin ([facility]); Anxiety Start: 07-03-2024 End: 07-03-2024 Telephone encounter Tim Ibrahim MD Work Phone: [facility] Start: 06-26-2024 End: 06-26-2024 ambulatory [facility] Start: 06-26-2024 End: 06-26-2024 Office outpatient visit 25 minutes Alea Mckenzie MD Work Phone: [facility] Adult [facility]ocrinology Comment on above: Type 2 diabetes wendy itus with diabetic peripheral angiopathy without gangrene, with long-term current use of insulin ([facility]) (Primary Dx) Start: 06-10-2024 End: 06-10-2024 Emergency department patient visit [facility] Start: 06-10-2024 End: 06-10-2024 ambulatory [facility] Start: 06-10-2024 End: 06-10-2024 Office outpatient visit 40 minutes [facility] CRIMINAL JUSTICE PROFESSOR-MONEY COUNTER Work Phone: [facility] Internal Medicine/Kayden Morse MD Comment on above: Suspected cauda equi na syndrome (Primary Dx); Neck pain; Bilateral low back pain with sciatica, sciatica laterality unspecified, unspecified chronicity; Incontinence of feces, unspecified fecal incontinence type; B12 deficiency Start: 06-05-2024 End: 06-05-2024 Telephone encounter Pattie Santiago [facility] General Surgery Start: 06-02-2024 End: 06-02-2024 ambulatory MC CHATMAN Not Available Start: 06-02-2024 End: 06-02-2024 Office outpatient visit 25 minutes Mc Chatman DPM Work Phone: [facility] Comment on above: Diabetic polyneuropa thy associated with type 2 diabetes mellitus ([facility]) (Primary Dx); Corns and callosities; Dystrophic nail; Dermatophytosis of nail Start: 06-02-2024 End: 06-02-2024 Bamboo flowsheet Mc Chatman DPM Work Phone: [facility] Start: 06-02-2024 End: 06-02-2024 Bamboo flowsheet Mc Chatman DPM Work Phone: [facility] Start: 05-22-2024 End: 05-23-2024 Omar Mckenzie MD Work Phone: [facility] Adult Endocrinology Comment on above: Type 2 diabetes wendy itus with diabetic peripheral angiopathy without gangrene, with long-term current use of insulin ([facility]) Start: 05-21-2024 End: 05-21-2024 Telephone encounter Pattie Santiago [facility] Start: 05-20-2024 End: 05-23-2024 Telephone encounter Jenn [facility]/Kayden Morse MD Start: 05-19-2024 End: 05-19-2024 Bamboo flowsheet Mc Chatman DPM Work Phone: [facility] Start: 05-19-2024 End: 05-19-2024 Bamboo flowsheet Mc Chatman DPM Work Phone: [facility] Start: 05-19-2024 End: 05-19-2024 ambulatory MC CHATMAN Not Available Start: 05-19-2024 End: 05-19-2024 Office outpatient visit 15 minutes Mc Chatman DPM Work Phone: [facility] Comment on above: Diabetic polyneuropa thy associated with type 2 diabetes mellitus (CMS/HCC) (Primary Dx); Corns and callosities Start: 05-01-2024 End: 05-01-2024 Bamboo flowsheet Nini Leos DPM Work Phone: [facility] Start: 05-01-2024 End: 05-01-2024 Bamboo flowsheet Nini Leos DPM Work Phone: [facility] Start: 05-01-2024 End: 05-01-2024 Patient encounter procedure Nini Leos DPM Work Phone: [facility] Comment on above: Diabetic polyneuropa thy associated with type 2 diabetes mellitus (CMS/HCC) (Primary Dx); Ulcer of right foot with fat layer exposed (CMS/HCC); Cellulitis of right foot Start: 05-01-2024 End: 05-01-2024 ambulatory NINI LEOS Not Available Start: 04-18-2024 End: 04-18-2024 ambulatory MC CHATMAN Not Available Start: 04-14-2024 End: 04-14-2024 Telephone encounter Pattie [facility] Start: 04-11-2024 End: 04-11-2024 ambulatory MC CHATMAN Not Available Start: 04-07-2024 End: 04-07-2024 ambulatory MC Rojo VIDYA Not Available Start: 04-04-2024 End: 04-04-2024 Telephone encounter Pattie Santiago [facility] General Surgery Start: 04-03-2024 End: 04-03-2024 Office outpatient new 45 minutes Vanessa Prabhakar MD Work Phone: [facility] General Surgery Comment on above: Gallstones (Primary Dx) Start: 04-03-2024 End: 04-03-2024 ambulatory VANESSA PRABHAKAR [facility] Start: 04-02-2024 End: 04-02-2024 Clinical Support [facility] 00 Cardiac Rehab [facility] Start: 03-31-2024 End: 03-31-2024 ambulatory [facility] Start: 03-27-2024 End: 04-03-2024 ambulatory [facility] Start: 03-26-2024 End: 04-03-2024 ambulatory [facility] Start: 03-24-2024 End: 03-28-2024 Refjenny Zheng LPN [facility] Internal Medicine/Kayden Morse MD Start: 03-24-2024 End: 04-03-2024 [facility] Start: 03-20-2024 End: 03-20-2024 Clinical Support [facility] 00 Cardiac Rehab [facility] Start: 03-19-2024 End: 03-21-2024 Clinical Support [facility] 00 Cardiac Rehab [facility] Start: 03-17-2024 End: 03-17-2024 Clinical Support [facility] 00 Cardiac Rehab [facility] Start: 03-15-2024 End: 03-15-2024 Emergency department patient visit Skyler Shankar steph Facility:[facility] Start: 03-14-2024 End: 03-14-2024 ambulatory [facility] Start: 03-14-2024 End: 03-14-2024 Office outpatient visit 15 minutes [facility] CRIMINAL JUSTICE PROFESSOR-MONEY COUNTER Work Phone: [facility] Internal Medicine/Kayden Morse MD Comment on above: Symptomatic cholelit hiasis (Primary Dx); Abdominal pain, unspecified abdominal location; Constipation, unspecified constipation type; Primary hypertension; Type 2 diabetes mellitus with diabetic peripheral angiopathy without gangrene, with long-term current use of insulin ([facility]) Start: 03-13-2024 End: 03-13-2024 Clinical Support [facility] 00 Cardiac Rehab [facility] Comment on above: Arrived Start: 03-12-2024 End: 03-12-2024 Clinical Support [facility] 00 Cardiac Rehab [facility] Comment on above: Arrived Start: 03-10-2024 End: 03-10-2024 Clinical Support [facility] 00 Cardiac Rehab [facility] Start: 03-05-2024 End: 03-05-2024 Clinical Support [facility] 00 Cardiac Rehab [facility] Start: 03-03-2024 End: 03-03-2024 Clinical Support [facility] 00 Cardiac Rehab [facility] Start: 02-27-2024 End: 03-03-2024 Clinical Support [facility] 15 Cardiac Rehab [facility] Start: 02-25-2024 End: 02-25-2024 Clinical Support Pm 15 Cardiac Rehab [facility] Start: 02-21-2024 End: 03-03-2024 ambulatory [facility] Start: 02-20-2024 End: 03-03-2024 [facility] Start: 02-18-2024 End: 02-18-2024 Clinical Support [facility] 15 Cardiac Rehab [facility] Start: 02-14-2024 End: 02-14-2024 ambulatory [facility] Start: 02-13-2024 End: 02-13-2024 Clinical Support [facility] 15 Cardiac Rehab [facility] Start: 02-11-2024 End: 02-11-2024 Clinical Support [facility] 15 Cardiac Rehab [facility] Start: 02-07-2024 End: 02-07-2024 Clinical Support [facility] 15 Cardiac Rehab [facility] Start: 02-06-2024 End: 02-06-2024 Office outpatient visit 15 minutes Nathan Blankenship MD Work Phone: [facility] Comment on above: History of urinary r etention (Primary Dx); Urinary retention Start: 02-06-2024 End: 02-06-2024 ambulatory [facility] Start: 02-04-2024 End: 02-04-2024 Clinical Support [facility] 15 Cardiac Rehab [facility] - [facility] Start: 01-31-2024 End: 01-31-2024 Clinical Support [facility] Card[facility] Rehab [facility] Start: 01-30-2024 End: 01-30-2024 Clinical Support [facility] 15 Cardiac Rehab [facility] Start: 01-23-2024 End: 01-23-2024 Clinical Support [facility] 15 Cardiac Rehab [facility] - [facility] Start: 01-22-2024 End: 01-22-2024 Office outpatient visit 25 minutes Gita Watts DO Work Phone: [facility] Comment on above: CAD, multiple vessel ; Obesity (BMI 30-39.9); Primary hypertension; Type 2 diabetes mellitus without complication, with long-term current use of insulin (Multi); Depression, unspecified depression type; Old [place] (myocardial infarction); History of PTCA; Anxiety; Mixed hyperlipidemia Start: 01-21-2024 End: 01-21-2024 Clinical Support [facility] 15 Cardiac Rehab [facility] - [facility] Re[facility] Start: 01-17-2024 End: 01-17-2024 Clinical Support [facility] 15 Cardiac Rehab [facility] Start: 01-16-2024 End: 01-16-2024 Clinical Support [facility] 15 Cardiac Rehab [facility] Start: 01-14-2024 End: 01-14-2024 Clinical Support [facility] 15 Cardiac Rehab [facility] Start: 01-10-2024 End: 01-10-2024 Clinical Support [facility] 15 Cardiac Rehab [facility] Start: 01-09-2024 End: 01-09-2024 Clinical Support [facility] 15 Cardiac Rehab [facility] Start: 12-31-2023 End: 12-31-2023 Office outpatient visit 25 minutes Kayden Morse MD Work Phone: [facility]/Kayden Morse MD Comment on above: Type 2 diabetes wendy itus with diabetic peripheral angiopathy without gangrene, with long-term current use of insulin ([facility]) (Primary Dx); Primary hypertension; Chronic diastolic CHF (congestive heart failure) ([facility]); Rotator cuff tear arthropathy of right shoulder Start: 12-31-2023 End: 12-31-2023 Clinical Support [facility] 15 Cardiac Rehab [facility] - Cardiac [facility] Start: 12-27-2023 End: 12-27-2023 Clinical Support [facility] 15 Cardiac Rehab [facility]iac [facility] Comment on above: Type 2 diabetes wendy itus with diabetic peripheral angiopathy without gangrene, with long-term current use of insulin ([facility]) (Primary Dx) Start: 12-26-2023 End: 12-27-2023 Refill Alea Mckenzie MD Work Phone: [facility] Start: 12-25-2023 End: 01-01-2024 Telephone encounter Leeann STEWART Work Phone: [facility]/Kayden Morse MD Start: 12-24-2023 End: 12-24-2023 Clinical Support [facility] 15 Cardiac Rehab [facility] Start: 12-19-2023 End: 12-19-2023 Clinical Support [facility] 15 Cardiac Rehab [facility] Start: 12-17-2023 End: 12-17-2023 Clinical Support [facility] Cardiac Rehab Exercise 2 [facility] Start: 12-14-2023 End: 12-17-2023 Telephone encounter Kayden Morse MD Work Phone: [facility]/Kayden Morse MD Start: 12-14-2023 End: 12-14-2023 Office outpatient visit 15 minutes Leeann Castillo CRIMINAL JUSTICE PROFESSOR-MONEY COUNTER Work Phone: [facility]/Kayden Morse MD Comment on above: Type 2 diabetes wendy itus with diabetic peripheral angiopathy without gangrene, with long-term current use of insulin ([facility]) (Primary Dx) Start: 12-11-2023 End: 12-11-2023 Nutrition therapy Apolinar LIGHT Work Phone: [facility] - Diabetes and Nutrition Education Comment on above: Type 2 diabetes wendy itus with diabetic peripheral angiopathy without gangrene, with long-term current use of insulin ([facility]) Start: 12-07-2023 Orders Only Shobha ozuna CRIMINAL JUSTICE PROFESSOR-MONEY COUNTER Work Phone: [facility] Comment on above: Type 2 diabetes wendy itus with diabetic peripheral angiopathy without gangrene, with long-term current use of insulin ([facility]) (Primary Dx) Start: 12-05-2023 Telephone encounter Alea mckeon MD Work Phone: [facility] Start: 11-28-2023 Telephone encounter Cl Gonzalez [facility] Start: 11-27-2023 Telephone encounter Leeann shankar CRIMINAL JUSTICE PROFESSOR-MONEY COUNTER Work Phone: [facility]/Kayden Morse MD Start: 11-26-2023 End: 11-26-2023 Office outpatient new 45 minutes Ashley YOUNG Work Phone: [facility] Comment on above: Numbness in both leg s; History of urinary retention Start: 11-22-2023 Telephone encounter Shobha esparza CRIMINAL JUSTICE PROFESSOR-MONEY COUNTER Work Phone: [facility] Start: 11-19-2023 Telephone encounter Leeann shankar CRIMINAL JUSTICE PROFESSOR-MONEY COUNTER Work Phone: [facility]/Kayden Morse MD Start: 11-15-2023 End: 11-15-2023 Office outpatient new 45 minutes Leeann Castillo CRIMINAL JUSTICE PROFESSOR-MONEY COUNTER Work Phone: [facility]/Kayden Morse MD Comment on above: Type 2 diabetes wendy itus with diabetic peripheral angiopathy without gangrene, with long-term current use of insulin (CMS-HCC) (Primary Dx); OSEI (dyspnea on exertion); Bilateral lower extremity edema; RUQ abdominal pain; Tendinopathy of left rotator cuff; Mixed hyperlipidemia; Screening PSA (prostate specific antigen); Primary hypertension; CAD, multiple vessel; ST elevation myocardial infarction (STEMI) of inferior wall (CMS-HCC); Moderate episode of recurrent major depressive disorder (CMS-HCC) Start: 11-01-2023 End: 11-01-2023 Postop follow up visit related to original px Mynor Steen MD Work Phone: [facility] Comment on above: Numbness in both leg s (Primary Dx); Lumbar pain Start: 10-17-2023 End: 10-17-2023 Office outpatient visit 25 minutes Tesah Gavin CRIMINAL JUSTICE PROFESSOR-MONEY COUNTER Work Phone: [facility] Comment on above: CAD, multiple vessel (Primary Dx); Primary hypertension; Mixed hyperlipidemia; Ischemic cardiomyopathy; Type 2 diabetes mellitus without complication, with long-term current use of insulin (CMS/HCC); Obesity (BMI 30-39.9); Major psychotic depression, recurrent (CMS/HCC); Moderate episode of recurrent major depressive disorder (CMS/HCC) Start: 10-15-2023 End: 10-15-2023 Transitional care manage srvc 7 day discharge Veronica De Jesus CRIMINAL JUSTICE PROFESSOR-PRODUCT RESPONSIBILITY LIAISON Work Phone: [facility] Internal Medicine - Family Medicine Comment on above: Status post lumbar l aminectomy (Primary Dx); Chronic diastolic CHF (congestive heart failure) ([facility] ST elevation myocardial infarction (STEMI) of inferior wall ([facility]); Type 2 diabetes mellitus with diabetic peripheral angiopathy without gangrene, with long-term current use of insulin ([facility]); Primary hypertension; History of urinary retention; Other constipation Start: 10-06-2023 Non-patient / Non-visit [facility] Work Phone: Start: 09-26-2023 Non-patient / Non-visit [facility] Work Phone: Start: 09-24-2023 Telephone encounter Gilles Dominguez PA-C Work Phone: [facility] Card[facility] Comment on above: Hospital Follow-up Start: 09-19-2023 End: 09-19-2023 Patient encounter procedure Yi YOUNG Work Phone: [facility] Comment on above: Spinal stenosis of l umbar region without neurogenic claudication Start: 09-13-2023 Refill Gisselle Dominic [facility] - Family Medicine Comment on above: Type 2 diabetes wendy itus with diabetic peripheral angiopathy without gangrene, with long-term current use of insulin ([facility]) Start: 09-11-2023 End: 09-11-2023 Office outpatient visit 15 minutes Tom Paniagua DO Work Phone: [facility] Internal Medicine - Family Medicine Comment on above: Spinal stenosis of l umbar region without neurogenic claudication (Primary Dx); Constipation, unspecified constipation type Start: 09-04-2023 Refill Tom Murphy Work Phone: [facility] Internal Medicine - Family Medicine Comment on above: Chronic diastolic CH F (congestive heart failure) ([facility]) Start: 04-26-2023 Patient encounter procedure Tom Paniagua Work Phone: [facility] [address] DO Work Phone: Start: 03-15-2023 Office outpatient vi sit 25 minutes Tom Paniagua Work Phone: [facility] 250 DO Work Phone: Start: 03-15-[address] Tom Paniagua Facility: Start: 01-04-2023 End: 01-08-2023 ambulatory ETTA ORO [facility] Start: 01-04-2023 End: 01-04-2023 Office outpatient [facility] MONEY COUNTER Work Phone: [facility] [place] Comment on above: Cough, unspecified t ype (Primary Dx) Start: 09-27-2022 End: 09-27-2022 ambulatory Lula Del Rosario Other [facility] Other Start: 09-27-2022 Telephone encounter Lula Del Rosario [facility] Start: 07-06-2022 Office outpatient vi sit 25 minutes Lula Del Rosario [facility] Start: 07-06-2022 End: 07-06-2022 ambulatory DO Tom Elizabethjose ramonkrunal Work Phone: [facility] Other Start: 07-06-2022 End: 07-06-2022 Patient encounter procedure DO Tom Elizabetherwin Work Phone: [facility] Start: 04-03-2022 End: 04-04-[address] TOM PANIAGUA Facility:[facility] Start: 12-19-2021 End: 12-20-[address] TOM PANIAGUA Facility:[facility] Start: 12-18-2021 End: 12-18-[address] CHAN GAVIN Facility:[facility] Start: 11-20-2021 End: 11-20-2021 Emergency department patient visit No Provider [facility] Start: 10-04-[address] [...] 05-20-2020 Subsequent hospital visit by physician Barbara [facility] Work Phone: Radiology Comment on above: Primary osteoarthrit is of right knee [M17.11] Start: 04-26-2020 End: 04-26-2020 Subsequent hospital visit by physician Barbara Kraus 1 Work Phone: Radiology Comment on above: Nuclear senile catar act, unspecified laterality [H25.10] Start: 11-08-2018 End: 11-13-2018 Evaluation and management of inpatient [facility] Start: 11-08-2018 Emergency department patient visit [facility] Start: 07-31-2017 Ambulatory KARRI BARAKAT [facility] Start: 07-17-2017 End: 07-19-2017 Ambulatory CHAN ROMAN Facility:[facility] Start: 07-17-2017 End: 07-18-2017 Emergency department patient visit CHAN ROMAN Facility:[facility] Procedures Date Procedure Procedure Detail Performing Clinician Start: 03-17-2025 Adult depression scr eening assessment Leeann Castillo CRIMINAL JUSTICE PROFESSOR-MONEY COUNTER Work Phone: Start: 02-03-2025 Radex foot complete minimum 3 views Mc Chatman DPM Work Phone: Start: 01-14-2025 Hemoglobin glycosyla radha a1c Alea Mckenzie MD Work Phone: Start: 12-10-2024 Urnls dip stick/tabl et rgnt auto w/o microscopy Nithin YOUNG Work Phone: Start: 12-10-2024 MEASURE POST VOID RESIDUAL Nithin Orozco PA Work Phone: Start: 11-19-2024 Follow-up visit Follow-up TIM IBRAHIM Start: 11-06-2024 AMB REFERRAL TO DIAB ETIC EDUCATION Alea Mckenzie MD Work Phone: Start: 10-31-2024 Arthrocentesis aspir &/inj interm jt/burs w/o us Yi YOUNG Work Phone: Start: 10-31-2024 Radex shoulder compl ete minimum 2 views Yi YOUNG Work Phone: Start: 10-31-2024 Radex shoulder compl ete minimum 2 views Yi YOUNG Work Phone: Start: 10-22-2024 Follow-up visit Follow-up TIM IBRAHIM Start: 10-17-2024 Hemoglobin glycosyla radha a1c Shobha Delong CRIMINAL JUSTICE PROFESSOR-MONEY COUNTER Work Phone: Start: 10-17-2024 Microalbumin [Mass/v olume] in Urine by Test strip Shobha Delong APRN-MONEY COUNTER Work Phone: Start: 09-26-2024 Radex hip unilateral with pelvis 2-3 views Yi YOUNG Work Phone: Start: 09-12-2024 Radiologic examinati on knee 1/2 views Yi YOUNG Work Phone: Start: 08-26-2024 End: 08-26-2024 Comprehensive metabolic panel Pritesh Giles MD Work Phone: Start: 08-26-2024 Radiologic exam ches t 2 views Pritesh Giles MD Work Phone: Start: 08-26-2024 Ecg routine ecg w/le ast 12 lds w/i&r Pritesh Giles MD Work Phone: Start: 08-08-2024 Lipid panel Phil alston MD Work Phone: Start: 06-26-2024 Hemoglobin glycosyla radha a1c Alea Mckenzie MD Work Phone: Start: 06-10-2024 Follow-up visit Follow-up LEEANN CASTILLO Start: 06-10-2024 Adult depression scr eening assessment Leeann Castillo CRIMINAL JUSTICE PROFESSOR-MONEY COUNTER Work Phone: Start: 03-14-2024 Adult depression scr eening assessment [facility] Start: 02-06-2024 MEASURE POST VOID RESIDUAL Nathan Blankenship MD Work Phone: Start: 01-22-2024 History of percutane ous transluminal coronary angioplasty History of PTCA Gita Watts DO Work Phone: Start: 12-31-2023 Adult depression scr eening assessment [facility] Start: 12-14-2023 Hemoglobin glycosyla radha a1c Leeann Castillo CRIMINAL JUSTICE PROFESSOR-MONEY COUNTER Work Phone: Start: 12-11-2023 AMB REFERRAL TO DIAB ETIC EDUCATION Alea Mckenzie MD Work Phone: Start: 11-26-2023 Urnls dip stick/tabl et rgnt auto w/o microscopy Ashley YOUNG Work Phone: Start: 11-26-2023 MEASURE POST VOID RESIDUAL Ashley YOUNG Work Phone: Start: 10-15-2023 Adult depression scr eening assessment Veronica De Jesus CRIMINAL JUSTICE PROFESSOR-PRODUCT RESPONSIBILITY LIAISON Work Phone: Start: 09-20-2023 Adult depression scr eening assessment Gilles Dominguez PAMatiC Work Phone: Start: 09-19-2023 Gluc bld gluc mntr d ev cleared fda spec home use Yari FONTENOTC Work Phone: Start: 09-11-2023 Adult depression scr eening assessment Tom Ruckerkrunal DO Work Phone: Start: 08-30-2023 History of coronary artery bypass grafting History of coronary artery bypass graft Tesha Gavin CRIMINAL JUSTICE PROFESSOR-MONEY COUNTER Work Phone: Start: 08-15-2023 Adult depression scr eening assessment Tom Paniagua DO Work Phone: Start: 01-04-2023 Radiologic exam ches t 2 views Etta Oakes MONEY COUNTER Work Phone: Start: 10-11-2022 Microalbumin [Mass/v olume] in Urine by Test strip Etta Oakes MONEY COUNTER Work Phone: Start: 05-20-2020 Radiologic examinati on knee 3 views Alcon Lundberg PA-C Work Phone: Start: 04-01-2020 Antibody screen Comment on above: Performed By: #### T [id number] #### [place] [address] Start: 11-13-2018 DISCHARGE PATIENT FACUNDO POP Start: 11-09-2018 [facility]ine [facility] Start: 11-09-2018 Assay of thyroid stimulating hormone tsh [facility] Start: 11-09-2018 Blood count complete auto&auto difrntl wbc [facility] Start: 11-09-2018 Hemoglobin glycosyla radha a1c [facility] Start: 11-09-2018 Lipid panel [facility] Start: 11-09-2018 Lipid 1996 panel - S jason or Plasma Xr 1 Work Phone: Start: 11-08-2018 DIET GENERAL [facility] Start: 11-08-2018 Drug screen class list a [facility] Start: 11-08-2018 FULL CODE MELODIE POP Start: 11-08-2018 IP CONSULT TO HOSPITALIST MELODIE MONROE Start: 11-08-2018 MONITOR [facility] Start: 11-08-2018 PATIENT STATUS (DIRECT) MELODIE POP Start: 11-08-2018 TOBACCO CESSATION EDUCATION MELODIE POP Start: 11-08-2018 VITAL SIGNS [facility] Start: 11-08-2018 PATIENT STATUS (DIRECT) MELODIE MONROE Start: 06-28-2011 History of coronary artery bypass grafting S/P CABG (coronary artery bypass graft) Nini Leos DPM Work Phone: Start: 05-05-2011 H/O: surgery Other states following surgery of eye and adnexa Xr 1 Work Phone: Arthroplasty of knee Tom Paniagua Work Phone: Biopsy of skin Tom Paniagua Work Phone: Cataract surgery Tom Sully Rucker s Work Phone: Coronary artery bypa ss graft Tom Sully Paniagua Work Phone: History of coronary artery bypass grafting History of coronary artery bypass graft Tom Paniagua Work Phone: History of coronary artery bypass grafting History of coronary artery bypass graft x 3 Comment on above: 5 vessel CABG 2009 a t [facility] History of coronary artery bypass grafting History of coronary artery bypass graft Gita Watts DO Work Phone: History of coronary artery bypass grafting History of coronary artery bypass graft Gita Watts DO Work Phone: History of operative procedure on knee History of bilateral knee replacement Yi YOUNG Work Phone: History of percutane ous transluminal coronary angioplasty History of PTCA Gita Watts DO Work Phone: History of percutane ous transluminal coronary angioplasty History of PTCA Carolyn Richards NP Work Phone: History of percutane ous transluminal coronary angioplasty History of PTCA Gita Watts DO Work Phone: Operation on mouth Tom hood Work Phone: Repair of musculoten dinous cuff of shoulder Tom Paniagua Work Phone: Surgical procedure o n eye proper Tom Paniagua Work Phone: Total colonoscopy Tom hummel Work Phone: Plan of Treatment Date Care Activity Detail Author Start: 12-31-2034 DTaP,Tdap and Td Vaccines (2 - Td or Tdap) DTaP,Tdap and Td Vaccines (2 - Td or Tdap) [facility] Start: 12-31-2034 DTaP/Tdap/Td Vaccines (2 - Td or Tdap) DTaP/Tdap/Td Vaccines (2 - Td or Tdap) [facility] Start: 2032 Respiratory Syncytial Virus (RSV) or age 60 yrs+ (1 - 1-dose 75+ series) Respiratory Syncytial Virus (RSV) or age 60 yrs+ (1 - 1-dose 75+ series) [facility] Start: 2032 RSV Vaccine (1 - 1-dose 75+ series) RSV Vaccine (1 - 1-dose 75+ series) [facility] Start: 08-08-2029 Lipid panel Lipids [facility] Start: 03-24-2026 End: 03-24-2026 Patient encounter procedure 03/24/2026 10:00 AM EDT Office Visit [facility] [address] [place] [address] Gita Watts DO [address] [place] [address] [facility] Start: 03-17-2026 Adult BMI Screening Adult BMI Screening [facility] Start: 03-17-2026 Depression Screening Depression Screening [facility] Start: 03-17-2026 Fall Risk Screening Fall Risk Screening [facility] Start: 03-17-2026 Medicare Annual Wellness Visit Medicare Annual Wellness Visit [facility] Start: 02-01-2026 Tobacco Screening Tobacco Screening [facility] Start: 01-18-2026 Adult BMI Screening Adult BMI Screening [facility] Start: 01-18-2026 Tobacco Screening Tobacco Screening [facility] Start: 01-07-2026 Adult BMI Screening Adult BMI Screening [facility] Start: 12-31-2025 Tobacco Screening Tobacco Screening [facility] Start: 12-14-2025 End: 12-14-2025 Patient encounter procedure 12/14/2025 3:15 PM EDT Office Visit [facility] [address] [facility] [facility] [place] [address] [address] [place] [address] Nathan Blankenship MD [address] [place] [address] [facility] Start: 12-10-2025 Adult BMI Screening Adult BMI Screening [facility] Start: 12-10-2025 End: 11-10-2026 Prostatic specific antigen, diagnostic [facility] Work Phone: Comment on above: 1 Occurrences starting 12/10/2024 until 12/10/2025 Expected: 12/10/2025 (Approximate), Expires: 11/10/2026 Start: 12-10-2025 Tobacco Screening Tobacco Screening [facility] Start: 11-19-2025 Adult BMI Screening Adult BMI Screening [facility] Start: 11-19-2025 Tobacco Screening Tobacco Screening [facility] Start: 11-06-2025 Adult BMI Screening Adult BMI Screening [facility] Start: 10-22-2025 Adult BMI Screening Adult BMI Screening [facility] Start: 10-22-2025 Tobacco Screening Tobacco Screening [facility] Start: 10-17-2025 Adult BMI Screening Adult BMI Screening [facility] Start: 10-17-2025 Tobacco Screening Tobacco Screening [facility] Start: 10-17-2025 Urine screening for protein Urine Microalbumin [facility] Start: 09-29-2025 Adult BMI Screening Adult BMI Screening [facility] Start: 08-11-2025 Adult BMI Screening Adult BMI Screening [facility] Start: 08-11-2025 Tobacco Screening Tobacco Screening [facility] Start: 08-08-2025 Lipid panel Lipids [facility] Start: 07-22-2025 End: 07-22-2025 Patient encounter procedure 07/22/2025 11:00 AM EST Office Visit [facility] A Department of [facility] [address] [id number] Alea Mckenzie MD [address] [facility] [place] [address] [facility], A Department of [facility] Start: 06-26-2025 Adult BMI Screening Adult BMI Screening [facility] Start: 06-26-2025 Tobacco Screening Tobacco Screening [facility] Start: 06-19-2025 End: 06-19-2025 Patient encounter procedure 06/19/2025 10:20 AM EDT Office Visit [facility]/Kayden Morse MD [address] [facility] [facility] [place] [id number] Leeann Castillo APRN-MONEY COUNTER [address] [address] [place] [address] [facility]/Kayden Morse MD Start: 06-10-2025 Adult BMI Screening Adult BMI Screening [facility] Start: 06-10-2025 Depression Screening Depression Screening [facility] Start: 06-10-2025 Tobacco Screening Tobacco Screening [facility] Start: 05-12-2025 End: 05-12-2025 Patient encounter procedure 05/12/2025 10:30 AM EDT Office Visit [facility] [place] [address] [place] [phone] Jesse Desouza MD [address] [facility] [facility] [address] [place] [address] [facility] [place] Start: 05-04-2025 Influenza vaccination [facility] Start: 04-03-2025 Adult BMI Screening Adult BMI Screening [facility] Start: 04-03-2025 Tobacco Screening Tobacco Screening [facility] Start: 03-31-2025 End: 03-31-2025 Patient encounter procedure 03/31/2025 4:15 PM EDT Office Visit [facility] [address] [place] [address] Mc Chatman, DPM [address] [place] [address] [facility] Start: 03-19-2025 End: 03-19-2026 Alanine aminotransferase [Enzymatic activity/volume] in Serum or Plasma by With P-5'-P Alanine Aminotransferase Lab Routine ASHD (arteriosclerotic heart disease) History of PTCA Mixed hyperlipidemia Expected: 03/19/2025, Expires: 03/19/2026 [facility] Work Phone: Comment on above: Expected: 03/19/2025, Expires: Start: 03-19-2025 End: 03-19-2026 Aspartate aminotransferase [Enzymatic activity/volume] in Serum or Plasma by With P-5'-P Aspartate Aminotransferase Lab Routine ASHD (arteriosclerotic heart disease) History of PTCA Mixed hyperlipidemia Expected: 03/19/2025, Expires: 03/19/2026 [facility] Work Phone: Comment on above: Expected: 03/19/2025, Expires: Start: 03-19-2025 End: 03-19-2026 Basic metabolic 2000 panel - Serum or Plasma Basic Metabolic Panel Lab Routine ASHD (arteriosclerotic heart disease) Shortness of breath Expected: 03/19/2025, Expires: 03/19/2026 [facility] Work Phone: Comment on above: Expected: 03/19/2025, Expires: Start: 03-19-2025 End: 03-19-2026 C reactive protein [Mass/volume] in Serum or Plasma by High sensitivity method C-Reactive Protein, High Sensitivity Lab Routine ASHD (arteriosclerotic heart disease) Shortness of breath Expected: 03/19/2025, Expires: 03/19/2026 [facility] Work Phone: Comment on above: Expected: 03/19/2025, Expires: Start: 03-19-2025 End: 03-19-2026 Lipid 1996 panel - Serum or Plasma Lipid Panel Lab Routine ASHD (arteriosclerotic heart disease) History of PTCA Mixed hyperlipidemia Expected: 03/19/2025, Expires: 03/19/2026 [facility] Service Area Work Phone: Comment on above: Expected: 03/19/2025, Expires: Start: 03-19-2025 End: 03-19-2026 Natriuretic peptide B [Mass/volume] in Blood B-Type Natriuretic Peptide Lab Routine ASHD (arteriosclerotic heart disease) Shortness of breath Expected: 03/19/2025, Expires: 03/19/2026 [facility] Work Phone: Comment on above: Expected: 03/19/2025, Expires: Start: 03-19-2025 End: 03-19-2025 Patient encounter procedure 03/19/2025 11:20 AM EDT Office Visit [facility] [address] [facility] [address] [place] [phone] Gita Watts DO [address] [facility] [address] [place] [address] [facility] Start: 03-17-2025 End: 03-17-2025 [facility] encounter procedure [facility]/Kayden Morse MD Start: 03-14-2025 Adult BMI Screening Adult BMI Screening [facility] Start: 03-14-2025 Depression Screening Depression Screening [facility] Start: 03-11-2025 End: 03-11-2025 Patient encounter procedure 03/11/2025 2:00 PM EDT Consult [facility] [address] [facility] [place] [address] [facility] [place] [phone] Carolyn Richards NP [address] [place] [address] Arthritis of right shoulder (Primary Dx); Pre-op exam; Type 2 diabetes mellitus with diabetic peripheral angiopathy without gangrene, with long-term current use of insulin (HCC); Mixed hyperlipidemia ; Primary hypertension ; History of PTCA; Constipation, unspecified constipation type; Depression, unspecified depression type [facility] Comment on above: Arthritis of right shoulder (Primary Dx) ; Pre-op exam; Type 2 diabetes mellitus with diabetic peripheral angiopathy without gangrene, with long-term current use of insulin (HCC); Mixed hyperlipidemia ; Primary hypertension ; History of PTCA; Constipation, unspecified constipation type; Depression, unspecified depression type Start: 03-10-2025 End: 03-10-2026 CBC W Auto Differential panel - Blood CBC and differential Lab Routine Pre-op exam Expected: 03/10/2025 (Approximate), Expires: 03/10/2026 [facility] Work Phone: Comment on above: Expected: 03/10/2025 (Approximate), Expi res: 03/10/2026 Start: 03-10-2025 End: 03-10-2026 Comprehensive metabolic 2000 panel - Serum or Plasma Comprehensive metabolic panel Lab Routine Pre-op exam Expected: 03/10/2025 (Approximate), Expires: 03/10/2026 [facility] Comment on above: Expected: 03/10/2025 (Approximate), Expi res: 03/10/2026 Start: 03-10-2025 End: 03-10-2026 Hemoglobin A1c/Hemoglobin.total in Blood Hemoglobin A1c Lab Routine Type 2 diabetes mellitus with diabetic peripheral angiopathy without gangrene, with long-term current use of insulin (HCC) Expected: 03/10/2025 (Approximate), Expires: 03/10/2026 [facility] Comment on above: Expected: 03/10/2025 (Approximate), Expi res: 03/10/2026 Start: 03-04-2025 End: 03-04-2025 Patient encounter procedure 03/04/2025 1:45 PM EDT Procedure [facility] [address] [place] [phone] Mc Chatman, DPM [address] [place], [place] [phone] [facility] Start: 02-23-2025 End: 02-23-[address] [facility] Comment on above: Arrived Start: 02-05-2025 Adult BMI Screening Adult BMI Screening [facility] Start: 02-05-2025 Tobacco Screening Tobacco Screening [facility] Start: 01-14-2025 End: 01-14-2025 Patient encounter procedure [facility] Adult Endocrinology, A Department of [facility] Start: 12-31-2024 Tobacco Screening Tobacco Screening [facility] Start: 12-30-2024 Adult BMI Screening Adult BMI Screening [facility] Start: 12-30-2024 Depression Screening Depression Screening [facility] Start: 12-30-2024 Fall Risk Screening Fall Risk Screening [facility] Start: 12-30-2024 Tobacco Screening Tobacco Screening [facility] Start: 12-13-2024 Adult BMI Screening Adult BMI Screening [facility] Start: 12-10-2024 End: 12-10-2024 Patient encounter procedure 12/10/2024 3:45 PM EDT Office Visit [facility] [address] [place] [address] [place] [phone] Nithin Orozco PA [address] [place] [address] [facility] Start: 12-05-2024 Adult BMI Screening Adult BMI Screening [facility] Start: 12-02-2024 End: 12-02-2024 Patient encounter procedure [facility] Comment on above: Arrived Start: 12-01-2024 Tobacco Screening Tobacco Screening [facility] Start: 11-28-2024 End: 11-28-2024 Patient encounter procedure 11/28/2024 10:15 AM EDT Office Visit [facility] [address] [place] [address] Yi Kim, HECTOR [address] [address] Acute pain of left shoulder (Primary Dx) [facility] Comment on above: Acute pain of left shoulder (Primary Dx) Start: 11-25-2024 Adult BMI Screening Adult BMI Screening [facility] Start: 11-25-2024 Tobacco Screening Tobacco Screening [facility] Start: 11-24-2024 Statin Use: Diabetic Statin Use: Diabetic [facility] Start: 11-20-2024 End: 11-20-2024 Patient encounter procedure 11/20/2024 3:00 PM EDT Office Visit [facility] [address] [facility] [address] [place] [address] Tim Nunez MD [address] [facility] [address] [address] [place] [address] [facility] Start: 11-19-2024 End: 11-19-2024 Patient encounter procedure [facility] Start: 11-19-2024 End: 11-19-2024 Patient encounter procedure 11/19/2024 11:20 AM EDT Office Visit [facility]/Kayden Morse MD [address] [facility] [address] [place] [phone] Leeann Castillo APRN-MONEY COUNTER [address] [facility] [address] [place] [address] [facility]/Kayden Morse MD Start: 11-14-2024 Adult BMI Screening Adult BMI Screening [facility] Start: 11-14-2024 End: 11-14-2024 Patient encounter procedure 11/14/2024 10:30 AM EDT Office Visit [facility] [address] [place] [address] Yi Kim, HECTOR [address] [facility] [address] [place] [address] [facility] Start: 11-06-2024 End: 11-06-2024 Nutrition therapy 11/06/2024 10:30 AM EST Support Visit [facility] [address] [place] [phone] Apolinar Mckenzie LD [facility] Start: 10-31-2024 Adult BMI Screening Adult BMI Screening [facility] Start: 10-31-2024 Tobacco Screening Tobacco Screening [facility] Start: 10-31-2024 End: 10-31-2024 Patient encounter procedure [facility] Comment on above: Acute pain of right knee (Primary Dx); Left hip pain Start: 10-22-2024 End: 10-22-2024 Patient encounter procedure 10/22/2024 3:00 PM EST Office Visit [facility] [address] [facility] [address] [address] [place] [address] Tim Nunez MD [address] [facility] [address] [place] [address] [facility] Start: 10-17-2024 End: 10-17-2024 Patient encounter procedure [facility] Adult Endocrinology, A Department of [facility] Start: 10-15-2024 Adult BMI Screening Adult BMI Screening [facility] Start: 10-15-2024 Depression Screening Depression Screening [facility] Start: 10-15-2024 Fall Risk Screening Fall Risk Screening [facility] Start: 10-15-2024 Tobacco Screening Tobacco Screening [facility] Start: 10-15-2024 End: 10-15-2024 Patient encounter procedure 10/15/2024 10:30 AM EST Office Visit [facility] [address] [place] [address] [place] [phone] Nithin Orozco I, PA [facility] [place] [address] [facility] Start: 10-06-2024 Echocardiography [facility] Start: 10-02-2024 End: 10-02-2024 Patient encounter procedure 10/02/2024 7:30 AM EST Appointment [facility] [place] [facility] [address] [place] [phone] Arrived [facility] [place] [facility] Comment on above: Arrived Start: 09-26-2024 End: 09-26-2024 Patient encounter procedure [facility] Comment on above: Acute pain of right knee (Primary Dx); Traumatic hematoma of right knee, subsequent encounter Start: 09-25-2024 Adult BMI Screening Adult BMI Screening [facility] Start: 09-21-2024 Tobacco Screening Tobacco Screening [facility] Start: 09-20-2024 Depression Screening Depression Screening [facility] Start: 09-19-2024 Adult BMI Screening Adult BMI Screening [facility] Start: 09-19-2024 Tobacco Screening Tobacco Screening [facility] Start: 09-19-2024 End: 09-19-2024 Patient encounter procedure 09/19/2024 9:30 AM EST Office Visit [facility] [address] [facility] [address] [place] [address] Tmi Nunez MD [address] [facility] [address] [place] [address] [facility] Start: 09-12-2024 End: 09-12-2024 Patient encounter procedure 09/12/2024 9:00 AM EST Office Visit [facility] [address] [place] [phone] Yi Kim PA [address] [facility] [address] [place] [address] [facility] Start: 09-11-2024 Adult BMI Screening Adult BMI Screening [facility] Start: 09-11-2024 Depression Screening Depression Screening [facility] Start: 09-11-2024 Fall Risk Screening Fall Risk Screening [facility] Start: 09-11-2024 Tobacco Screening Tobacco Screening [facility] Start: 09-01-2024 End: 09-01-2024 Patient encounter procedure 09/01/2024 2:15 PM EST Procedure Visit [facility] [address] [place] [phone] Mc Chatman, DPM [address] [place] [address] [facility] Start: 08-15-2024 Adult BMI Screening Adult BMI Screening [facility] Start: 08-15-2024 Depression Screening Depression Screening [facility] Start: 08-15-2024 Fall Risk Screening Fall Risk Screening [facility] Start: 08-15-2024 Tobacco Screening Tobacco Screening [facility] Start: 08-07-2024 Diabetic foot examination Diabetic Foot Exam [facility] Start: 07-30-2024 End: 07-30-2024 Patient encounter procedure 07/30/2024 10:30 AM EST Office Visit [facility] [address] [place] [address] A [facility] [place] [address] Nithin Orozco PA [address] [place] [address] [facility] Start: 07-16-2024 End: 07-16-2024 Patient encounter procedure 07/16/2024 11:20 AM EST Office Visit [facility] [address] [facility] [address] [place] [address] Gita Watts DO [address] [facility] [address] [place] [address] [facility] Start: 07-03-2024 End: 07-03-2024 Patient encounter procedure 07/03/2024 1:00 PM EDT Office Visit [facility] [address] [facility] [address] [place] [address] [facility] Start: 06-23-2024 End: 06-23-2024 Admission to same day surgery center 06/23/2024 9:45 AM EDT - 06/23/2024 11:45 AM EDT Surgery [facility] -[facility]gery [address] [place] [phone] Vanessa Prabhakar MD [address] [facility] [facility] [address] [address] [place] [address] [facility] CHOLECYSTECTOM[facility] [19619 (CPT )] [facility] Comment on above: [facility] CHOLECYSTECTOMY [97247 (CPT )] Start: 06-23-2024 End: 06-23-2024 Laparoscopy surg cholecystectomy [facility] Gallstones 06/23/2024 9:45 AM EDT [facility] Start: 06-23-2024 Subsequent hospital visit by physician 06/23/2024 9:45 AM EDT Hospital Encounter [facility] [address] [facility] [place] [address] Vanessa Prabhakar MD [address] [facility] [facility] [address] [place] [address] [facility] Start: 06-11-2024 Screening for malignant neoplasm of colon [facility] Start: 06-10-2024 End: 06-10-2024 Patient encounter procedure 06/10/2024 1:45 PM EDT Office Visit [facility] [address] [place] [address] Shobha Delong, CRIMINAL JUSTICE PROFESSOR-MONEY COUNTER [address] [place] [address] [facility] Start: 06-10-2024 End: 06-10-2024 Patient encounter procedure 06/10/2024 11:20 AM EDT Office Visit [facility] Internal [facility]/Kayden Morse MD [address] [place] [phone] Leeann Castillo APRN-MONEY COUNTER [address] [facility] [address] [place] [address] [facility]/Kayden Morse MD Start: 06-09-2024 End: 06-09-2024 Patient encounter procedure 06/09/2024 10:45 AM EDT Procedure visit [facility] -Pre Admission Testing [address] [place] [address] [facility] -Pre Admission Testing Start: 06-02-2024 End: 06-02-2024 Patient encounter procedure 06/02/2024 2:15 PM EDT [address] [facility] [address] [place] [phone] Mc Chatman, DPRaul [address] [place], [place] [phone] [facility] Start: 05-22-2024 End: 05-22-2024 Patient encounter procedure 05/22/2024 1:00 PM EDT Office Visit [facility] [address] [facility] [address] [place] [phone] Vanessa Prabhakar MD [address] [place] [address] [address] [place], [place] [id number] [facility] Start: 05-14-2024 End: 05-14-2024 Patient encounter procedure 05/14/2024 4:15 PM EDT Office Visit [facility] [address] [place] [address] [place] [phone] Nithin Orozco I, PA [address] [place] [address] [facility] Start: 05-12-2024 End: 05-12-2024 Admission to same day surgery center 05/12/2024 7:30 AM EDT - 05/12/2024 9:[address] [facility] [address] [place] [phone] Vanessa Prabhakar MD [address] [place] [address] [address] [place] [address] DAV[facility] CHOLECYSTECTOMY [63163 (CPT )] [facility] Comment on above: DAVINCI CHOLECYSTECTOMY [51467 (CPT )] Start: 05-12-2024 End: 05-12-2024 Laparoscopy surg cholecystectomy [facility] CHOLECYSTECTOM[facility] Gallstones 05/12/2024 7:30 AM EDT [facility] Start: 05-12-2024 Subsequent hospital visit by physician 05/12/2024 7:30 AM EDT Hospital Encounter [facility] [address] [place] [address] Vanessa Prabhakar MD [address] [facility] [facility] [address] [place] [address] [facility] Start: 05-04-2024 COVID-19 Vaccine ( season) COVID-19 Vaccine ( season) [facility] Start: 05-04-2024 Covid-19 Vaccine ( season) Covid-19 Vaccine ( season) [facility] Start: 05-04-2024 Influenza vaccination [facility] Start: 05-01-2024 End: 05-01-2024 Patient encounter procedure 05/01/2024 10:45 AM EDT Office [address] [facility] [address] [facility] [place] [phone] Nini Leos, DPM [address] [place], [place] [phone] Arrived [facility] Comment on above: Arrived Start: 04-29-2024 End: 04-29-2024 Patient encounter procedure 04/29/2024 10:45 AM EDT Procedure visit [facility] -Pre Admission Testing [address] [place] [phone] [facility] -Pre Admission Testing Start: 04-22-2024 End: 04-22-2024 Patient encounter procedure 04/22/2024 3:30 PM EDT Office Visit [facility] Internal Medicine - Family Medicine [address] [place] [address] [facility] Internal Medicine - Family Medicine Start: 04-17-2024 Medicare Annual Wellness Visit Medicare Annual Wellness Visit [facility] Start: 04-03-2024 Influenza vaccination Flu vaccine (#1) [facility] Start: 04-03-2024 End: 04-03-2024 Patient encounter procedure 04/03/2024 1:00 PM EDT Office Visit [facility] General Surgery [address] [facility] [address] [place] [address] Vanessa Prabhakar MD [address] [facility] [address] [place] [address] [facility] General Surgery Start: 04-02-2024 End: 04-02-2024 Clinical Support 04/02/2024 2:00 PM EDT Clinical Support [facility] [address] [place] [address] [facility] Start: 03-31-2024 End: 03-31-2024 Clinical Support 03/31/2024 2:00 PM EDT Clinical Support [facility] [address] [place] [address] [facility] - [facility]iac Re[facility] Start: 03-27-2024 End: 03-27-2024 Clinical Support 03/27/2024 2:00 PM EDT Clinical Support [facility] [address] [place] [address] [facility] Start: 03-26-2024 End: 03-26-2024 Clinical Support 03/26/2024 2:00 PM EDT Clinical Support [facility] [address] [place] [address] [facility] Start: 03-24-2024 End: 03-24-2024 Clinical Support 03/24/2024 2:00 PM EDT Clinical Support [facility] [address] [place] [address] [facility] Start: 03-20-2024 End: 03-20-2024 Clinical Support 03/20/2024 2:00 PM EDT Clinical Support [facility] [address] [place] [address] [facility] Start: 03-19-2024 End: 03-19-2024 Clinical Support 03/19/2024 2:00 PM EDT Clinical Support [facility] [address] [place] [address] [facility] Start: 03-17-2024 End: 03-17-2024 Clinical Support 03/17/2024 2:00 PM EDT Clinical Support [facility] [address] [place] [address] [facility] Re[facility] Start: 03-14-2024 End: 03-14-2024 Patient encounter procedure 03/14/2024 11:20 AM EDT Office Visit [facility]/Kayden Morse MD [address] [place] [address] Leeann Castillo APRN-MONEY COUNTER [address] [facility] [address] [place] [address] [facility]/Kayden Morse MD Start: 03-13-2024 End: 03-13-2024 Clinical Support 03/13/2024 2:00 PM EDT Clinical Support [facility] [address] [place] [address] [facility] Start: 03-12-2024 End: 03-12-2024 Clinical Support 03/12/2024 2:00 PM EDT Clinical Support [facility] [address] [place] [address] [facility] Start: 03-10-2024 End: 03-10-2024 Clinical Support 03/10/2024 2:00 PM EDT Clinical Support [facility] [address] [place] [address] [facility] Start: 03-05-2024 End: 03-05-2024 Clinical Support 03/05/2024 2:00 PM EDT Clinical Support [facility] [address] [place] [address] [facility] Start: 03-03-2024 End: 03-03-2024 Clinical Support 03/03/2024 2:00 PM EDT Clinical Support [facility] [address] [place] [address] [facility] Start: 02-28-2024 End: 02-28-2024 Clinical Support [facility] Start: 02-27-2024 End: 02-27-2024 Clinical Support [facility] Start: 02-25-2024 End: 02-25-2024 Clinical Support [facility] Start: 02-21-2024 End: 02-21-2024 Clinical Support [facility] Start: 02-20-2024 End: 02-20-2024 Clinical Support [facility] Start: 02-18-2024 End: 02-18-2024 Clinical Support [facility] Start: 02-14-2024 End: 02-14-2024 Clinical Support [facility] Start: 02-13-2024 End: 02-13-2024 Clinical Support [facility] Start: 02-11-2024 End: 02-11-2024 Clinical Support [facility] Start: 02-07-2024 End: 02-07-2024 Clinical Support [facility] Start: 02-06-2024 End: 02-06-2024 Patient encounter procedure 02/06/2024 3:15 PM EDT Office Visit [facility] [address] [place] [phone] Nathan Blankenship MD [address] [place] [address] [facility] Start: 02-06-2024 End: 02-06-2024 Clinical Support [facility] Start: 02-04-2024 End: 02-04-2024 Clinical Support [facility] Start: 01-31-2024 End: 01-31-2024 Clinical Support 01/31/2024 9:15 AM EDT Clinical Support [facility] [address] [place] [address] [facility] Start: 01-30-2024 End: 01-30-2024 Clinical Support 01/30/2024 9:15 AM EDT Clinical Support [facility] [address] [facility] [place] [address] [facility] Start: 01-24-2024 End: 01-24-2024 Clinical Support 01/24/2024 9:15 AM EDT Clinical Support [facility] [address] [place] [address] [facility] Start: 01-23-2024 End: 01-23-2024 Clinical Support 01/23/2024 9:15 AM EDT Clinical Support [facility] [address] [place] [address] [facility] Start: 01-22-2024 End: 01-22-2024 Patient encounter procedure 01/22/2024 1:50 PM EDT Office Visit [facility] [address] [place] [phone] Gita Watts, [address] [place] [address] [facility] Start: 01-21-2024 End: 01-21-2024 Clinical Support 01/21/2024 9:15 AM EDT Clinical Support [facility] [address] [place] [address] [facility] Start: 01-17-2024 End: 01-17-2024 Clinical Support 01/17/2024 9:15 AM EDT Clinical Support [facility] [address] [place] [address] [facility] Start: 01-16-2024 End: 01-16-2024 Clinical Support 01/16/2024 9:15 AM EDT Clinical Support [facility] [address] [place] [address] [facility] Start: 01-14-2024 End: 01-14-2024 Clinical Support 01/14/2024 9:15 AM EDT Clinical Support [facility] [address] [place] [address] [facility] Start: 01-10-2024 End: 01-10-2024 Clinical Support 01/10/2024 9:15 AM EDT Clinical Support [facility] [address] [place] [address] [facility] Start: 01-09-2024 End: 01-09-2024 Clinical Support 01/09/2024 9:15 AM EDT Clinical Support [facility] [address] [place] [address] [facility] Start: 01-07-2024 End: 01-07-2024 Clinical Support 01/07/2024 9:15 AM EDT Clinical Support [facility] [address] [place] [address] [facility] Start: 01-03-2024 End: 01-03-2024 Patient encounter procedure 01/03/2024 12:[address] [facility] [address] [place] [address] [facility] Start: 01-03-2024 End: 01-03-2024 Clinical Support 01/03/2024 9:15 AM EDT Clinical Support [facility] [address] [place] [address] [facility] Start: 01-02-2024 End: 01-02-2024 Clinical Support 01/02/2024 9:15 AM EDT Clinical Support [facility] [address] [place] [address] [facility] Start: 12-31-2023 End: 12-31-2023 Patient encounter procedure 12/31/2023 11:30 AM EDT Office Visit [facility]/Kayden Morse MD [address] [place] [address] Kayden Morse MD [address] [address] [facility]/Kayden Morse MD Start: 12-31-2023 End: 12-31-2023 Clinical Support 12/31/2023 9:15 AM EDT Clinical Support [facility] [address] [place] [address] [facility] Start: 12-27-2023 End: 12-27-2023 Clinical Support 12/27/2023 9:15 AM EDT Clinical Support [facility] [address] [place] [address] [facility] Start: 12-26-2023 End: 12-26-2023 Clinical Support 12/26/2023 9:15 AM EDT Clinical Support [facility] [address] [place] [address] [facility] Start: 12-24-2023 End: 12-24-2023 Clinical Support 12/24/2023 9:15 AM EDT Clinical Support [facility] [address] [place] [address] [facility] Start: 12-20-2023 End: 12-20-2023 Clinical Support 12/20/2023 9:15 AM EDT Clinical Support [facility] [address] [place] [address] [facility] Start: 12-19-2023 End: 12-19-2023 Clinical Support 12/19/2023 9:15 AM EDT Clinical Support [facility] [address] [place] [phone] [facility] Start: 12-16-2023 End: 10-17-2024 Alanine aminotransferase [Enzymatic activity/volume] in Serum or Plasma by With P-5'-P Alanine Aminotransferase Lab Routine Mixed hyperlipidemia Expected: 12/16/2023 (Approximate), Expires: 10/17/2024 [facility] Work Phone: Comment on above: Expected: 12/16/2023 (Approximate), Expi res: 10/17/2024 Start: 12-16-2023 End: 10-17-2024 Aspartate aminotransferase [Enzymatic activity/volume] in Serum or Plasma by With P-5'-P Aspartate Aminotransferase Lab Routine Mixed hyperlipidemia Expected: 12/16/2023 (Approximate), Expires: 10/17/2024 [facility] Work Phone: Comment on above: Expected: 12/16/2023 (Approximate), Expi res: 10/17/2024 Start: 12-16-2023 End: 10-17-2024 Lipid 1996 panel - Serum or Plasma Lipid Panel Lab Routine Mixed hyperlipidemia Expected: 12/16/2023 (Approximate), Expires: 10/17/2024 [facility] Work Phone: Comment on above: Expected: 12/16/2023 (Approximate), Expi res: 10/17/2024 Start: 12-14-2023 End: 12-14-2023 Patient encounter procedure [facility]/Kayden Morse MD Start: 12-11-2023 End: 12-11-2023 Nutrition therapy 12/11/2023 3:00 PM EDT Support Visit [facility] [address] [place] [phone] Apolinar Mckenzie [facility] Start: 12-06-2023 End: 12-06-2023 Patient encounter procedure 12/06/2023 7:00 AM EDT Appointment [facility] [address] [place] [address] [facility] Start: 12-06-2023 Subsequent hospital visit by physician 12/06/2023 7:00 AM EDT Hospital Encounter [facility] [address] [place] [address] [facility] Start: 12-03-2023 End: 12-03-2023 Patient encounter procedure 12/03/2023 9:[address] [facility] [address] [place] [phone] [facility] Start: 11-26-2023 End: 11-26-2023 Patient encounter procedure 11/26/2023 10:00 AM EDT Office Visit [facility] [address] [place] [phone] Ashley Rodriguez PA [address] [place], [place] [id number] [facility] Start: 11-23-2023 End: 11-22-2024 NM Biliary ducts and Gallbladder Views for patency of biliary structures and ejection fraction W sincalide and W radionuclide IV NM hepatobiliary system imaging with pharmacologic agent Imaging Routine Biliary colic Expected: 11/23/2023, Expires: 11/22/2024 [facility] Work Phone: Comment on above: Expected: 11/23/2023, Expires: Start: 11-15-2023 End: 11-15-2023 Patient encounter procedure [facility]/Kayden Morse MD Comment on above: Lumbar pain Start: 11-10-2023 Lipid panel Lipid Screening [facility] Start: 11-07-2023 End: 11-07-2023 Patient encounter procedure 11/07/2023 10:45 AM EST Office Visit [facility] [address] [place] [address] Alea Mckenzie MD [address] [place] [address] [facility] Start: 11-01-2023 End: [...] EST Office Visit [facility] [address] [place] [address] [place] [address] [place] [address] [address] [place] [address] [facility] Start: 10-24-2023 End: 10-17-2024 Basic metabolic 2000 panel - Serum or Plasma Basic Metabolic Panel Lab Routine CAD, multiple vessel Primary hypertension Expected: 10/24/2023 (Approximate), Expires: 10/17/2024 [facility] Service Area Work Phone: Comment on above: Expected: 10/24/2023 (Approximate), Expi res: 10/17/2024 Start: 10-11-2023 Urine screening for protein [facility] Start: 10-09-2023 [facility] Start: 10-06-2023 [facility] Start: 10-06-2023 Referral to cardiac rehabilitation program [facility] Start: 10-06-2023 Hospital admission [facility] Start: 10-06-2023 End: 10-06-2023 [facility] Start: 10-02-2023 Referral to psychiatrist [facility] Start: 09-27-2023 End: 09-27-2023 Patient encounter procedure 09/27/2023 10:00 AM EST Office Visit [facility] - [facility] [address] [facility] [place] [address] Tom Paniagua, [address] [facility] [place] [address] [facility] Start: 09-26-2023 Hospital admission [facility] Start: 09-26-2023 Referral to clinical cage supervisor [facility] Start: 09-20-2023 End: 09-20-2023 Patient encounter procedure 09/20/2023 11:45 AM EST Office Visit [facility] [address] [place] [address] Alea Mckenzie MD [address] [place] [address] [facility] Start: 09-19-2023 FUV, Provider: Bertha Tovar, Status: Pen, Time: 3:00 PM FUV, Provider: Bertha Tovar, Status: Pen, Time: 3:00 PM [facility] DO Work Phone: Start: 09-19-2023 End: 09-19-2023 Patient encounter procedure 09/19/2023 1:00 PM EST Office Visit [facility] [address] [place] [address] Yi Damian, HECTOR [address] [place] [address] Yari Peter PA-C [address] [place] [address] [facility] Start: 09-03-2023 Advance Directive Discussion Advance Directive Discussion [facility] Start: 09-03-2023 Annual Wellness Visit (Medicare Advantage) Annual Wellness Visit (Medicare Advantage) [facility] Start: 05-04-2023 COVID-19 Vaccine ( season) COVID-19 Vaccine ( season) [facility] Start: 05-04-2023 Influenza vaccination [facility] Start: 04-13-2023 Diabetes Screening Diabetes Screening [facility] Start: 02-16-2023 Hemoglobin A1c measurement A1C [facility] Start: 2022 Fall risk assessment Falls Risk Assessment [facility] Start: 2022 Pneumococcal 65+ years Vaccine (2 of 2 - PCV) Pneumococcal 65+ years Vaccine (2 of 2 - PCV) [facility] Start: 2022 Pneumococcal Vaccine: 65+ (2 of 2 - PCV) Pneumococcal Vaccine: 65+ (2 of 2 - PCV) [facility] Start: 07-02-2020 Hemoglobin A1c measurement Diabetes: Hemoglobin A1C [facility] Start: 02-09-2019 Hemoglobin A1c measurement A1C test (Diabetic or Prediabetic) [facility] Start: 2017 Hepatitis B Vaccines (1 of 3 - Risk 3-dose series) Hepatitis B Vaccines (1 of 3 - Risk 3-dose series) [facility] Start: 2017 RSV High Risk: (Elderly (60+) or Population) (1 - Risk 60-74 years 1-dose series) RSV High Risk: (Elderly (60+) or Population) (1 - Risk 60-74 years 1-dose series) [facility] Start: 2017 RSV patients and/or patients aged 60+ years (1 - 1-dose 60+ series) RSV patients and/or patients aged 60+ years (1 - 1-dose 60+ series) [facility] Start: 2012 Prostate specific antigen measurement Prostate Cancer Screening Discussion [facility] Start: 09-14-2012 Pneumococcal vaccination Pneumococcal Vaccine (2 of 2 - PCV) [facility] Start: 09-14-2012 Pneumococcal Vaccine: 65+ Years (2 - PCV) Pneumococcal Vaccine: 65+ Years (2 - PCV) [facility] Start: 09-14-2012 Pneumococcal Vaccine: 65+ Years (2 of 2 - PCV) Pneumococcal Vaccine: 65+ Years (2 of 2 - PCV) [facility] Start: 09-14-2012 Pneumococcal Vaccine: Age 65+ (2 - PCV) Pneumococcal Vaccine: Age 65+ (2 - PCV) [facility] Start: 2007 Administration of herpes zoster vaccine Zoster Vaccines (1 of 2) [facility] Start: 2007 Administration of varicella zoster vaccine Zoster (Shingles) Vaccine (1 of 2) [facility] Start: 2007 Screening for malignant neoplasm of colon Flexible sigmoidoscopy [facility] Start: 2007 Shingles vaccine (1 of 2) Shingles vaccine (1 of 2) [facility] Start: 2007 Shingrix Vaccine (1 of 2) Shingrix Vaccine (1 of 2) [facility] Start: 2007 Zoster Vaccines (1 of 2) Zoster Vaccines (1 of 2) [facility] Start: 2002 Screening for malignant neoplasm of colon [facility] Start: 1979 DTaP/Tdap/Td Vaccines (1 - Tdap) DTaP/Tdap/Td Vaccines (1 - Tdap) [facility] Start: 1976 DTaP,Tdap and Td Vaccines (1 - Tdap) DTaP,Tdap and Td Vaccines (1 - Tdap) [facility] Start: 1976 DTaP/Tdap/Td vaccine (1 - Tdap) DTaP/Tdap/Td vaccine (1 - Tdap) [facility] Start: 1976 Hepatitis A Vaccines (1 of 2 - Risk 2-dose series) Hepatitis A Vaccines (1 of 2 - Risk 2-dose series) [facility] Start: 1976 Urine microalbumin profile DTaP,Tdap,Td Vaccine (1 - Tdap) [facility] Start: 1976 Urine screening for protein Diabetes: Urine Protein Screening [facility] Start: 1975 Adult BMI Follow Up Plan Adult BMI Follow Up Plan [facility] Start: 1975 Anxiety Screening Anxiety Screening [facility] Start: 1975 Depression Screening Depression Screening [facility] Start: 1975 Hepatitis C screening [facility] Start: 1972 HIV screening HIV Screening [facility] Start: 1969 Depression Monitoring Depression Monitoring [facility] Start: 1969 Depression screening using PHQ-9 (Patient Health Questionnaire 9) score Depression Screening (PHQ-2/9) [facility] Start: 1967 Diabetic foot examination [facility] Start: 1967 Glaucoma screening [facility] Start: 1960 History and physical examination, annual for health maintenance Wellness Visit [facility] Start: 1958 MMR Vaccines (1 of 1 - Standard series) MMR Vaccines (1 of 1 - Standard series) [facility] Start: 03-23-1958 COVID-19 Vaccine (#1) COVID-19 Vaccine (#1) [facility] Start: 1957 Creatinine measurement Creatinine Level [facility] Start: 1957 Glaucoma screening Diabetic Ophthalmology Exam [facility] Start: 1957 Lipid panel Lipid Panel [facility] Start: 1957 Medicare Annual Wellness Visit Medicare Annual Wellness Visit (AWV) [facility] Start: 1957 Potassium measurement Potassium Level [facility] Start: 1957 Prostate specific antigen measurement PSA Level [facility] Start: 1957 Screening for malignant neoplasm of colon [facility] Start: 1957 Tetanus vaccination Tetanus: Every 10yrs [facility] aPTT in Platelet poo r plasma by Coagulation assay [facility] End: 09-29-2025 Basic metabolic 2000 panel - Serum or Plasma Basic Metabolic Panel Lab Routine Essential hypertension 1 Occurrences starting 09/29/2024 until 09/29/2025 [facility] Work Phone: Comment on above: 1 Occurrences starting 09/29/2024 until 09/29/2025 End: 12-06-2024 C-peptide C-peptide Lab Routine Type 2 diabetes mellitus with diabetic peripheral angiopathy without gangrene, with long-term current use of insulin ([facility]) 1 Occurrences starting 12/07/2023 until 12/06/2024 [facility] Work Phone: Comment on above: 1 Occurrences starting 12/07/2023 until 12/06/2024 Cardiopulmonary rehabilitation Cardiopulmonary rehabilitation Cardiac Services Ordered: 12/24/2023 [facility] Comment on above: Ordered: 12/24/2023 Cardiopulmonary rehabilitation Cardiopulmonary rehabilitation Cardiac Services Ordered: 12/27/2023 [facility] Comment on above: Ordered: 12/27/2023 Cardiopulmonary rehabilitation Cardiopulmonary rehabilitation Cardiac Services Ordered: 12/31/2023 [facility] Comment on above: Ordered: 12/31/2023 Cardiopulmonary rehabilitation Cardiopulmonary rehabilitation Cardiac Services Ordered: 01/09/2024 [facility] Comment on above: Ordered: 01/09/2024 Cardiopulmonary rehabilitation Cardiopulmonary rehabilitation Cardiac Services Ordered: 01/10/2024 [facility] Comment on above: Ordered: 01/10/2024 Cardiopulmonary rehabilitation Cardiopulmonary rehabilitation Cardiac Services Ordered: 01/14/2024 [facility] Comment on above: Ordered: 01/14/2024 Cardiopulmonary rehabilitation Cardiopulmonary rehabilitation Cardiac Services Ordered: 02/07/2024 [facility] Comment on above: Ordered: 02/07/2024 Cardiopulmonary rehabilitation Cardiopulmonary rehabilitation Cardiac Services Ordered: 01/16/2024 [facility] Comment on above: Ordered: 01/16/2024 Cardiopulmonary rehabilitation Cardiopulmonary rehabilitation Cardiac Services Ordered: 02/11/2024 [facility] Comment on above: Ordered: 02/11/2024 Cardiopulmonary rehabilitation Cardiopulmonary rehabilitation Cardiac Services Ordered: 01/17/2024 [facility] Comment on above: Ordered: 01/17/2024 Cardiopulmonary rehabilitation Cardiopulmonary rehabilitation Cardiac Services Ordered: 01/21/2024 [facility] Comment on above: Ordered: 01/21/2024 Cardiopulmonary rehabilitation Cardiopulmonary rehabilitation Cardiac Services Ordered: 02/14/2024 [facility] Comment on above: Ordered: 02/14/2024 Cardiopulmonary rehabilitation Cardiopulmonary rehabilitation Cardiac Services Ordered: 01/23/2024 [facility] Comment on above: Ordered: 01/23/2024 Cardiopulmonary rehabilitation Cardiopulmonary rehabilitation Cardiac Services Ordered: 01/30/2024 [facility] Comment on above: Ordered: 01/30/2024 Cardiopulmonary rehabilitation Cardiopulmonary rehabilitation Cardiac Services Ordered: 01/31/2024 [facility] Comment on above: Ordered: 01/31/2024 Cardiopulmonary rehabilitation Cardiopulmonary rehabilitation Cardiac Services Ordered: 02/04/2024 [facility] Comment on above: Ordered: 02/04/2024 Cardiopulmonary rehabilitation Cardiopulmonary rehabilitation Cardiac Services Ordered: 02/18/2024 [facility] Comment on above: Ordered: 02/18/2024 Cardiopulmonary rehabilitation Cardiopulmonary rehabilitation Cardiac Services Ordered: 02/25/2024 [facility] Comment on above: Ordered: 02/25/2024 Cardiopulmonary rehabilitation Cardiopulmonary rehabilitation Cardiac Services Ordered: 02/27/2024 [facility] Comment on above: Ordered: 02/27/2024 Cardiopulmonary rehabilitation Cardiopulmonary rehabilitation Cardiac Services Ordered: 03/03/2024 [facility] Comment on above: Ordered: 03/03/2024 Cardiopulmonary rehabilitation Cardiopulmonary rehabilitation Cardiac Services Ordered: 03/05/2024 [facility] Comment on above: Ordered: 03/05/2024 Cardiopulmonary rehabilitation Cardiopulmonary rehabilitation Cardiac Services Ordered: 03/10/2024 [facility] Comment on above: Ordered: 03/10/2024 Cardiopulmonary rehabilitation Cardiopulmonary rehabilitation Cardiac Services Ordered: 03/12/2024 [facility] Comment on above: Ordered: 03/12/2024 Cardiopulmonary rehabilitation Cardiopulmonary rehabilitation Cardiac Services Ordered: 03/13/2024 [facility] Comment on above: Ordered: 03/13/2024 Cardiopulmonary rehabilitation Cardiopulmonary rehabilitation Cardiac Services Ordered: 03/17/2024 [facility] Comment on above: Ordered: 03/17/2024 Cardiopulmonary rehabilitation Cardiopulmonary rehabilitation Cardiac Services Ordered: 03/19/2024 [facility] Comment on above: Ordered: 03/19/2024 Cardiopulmonary rehabilitation Cardiopulmonary rehabilitation Cardiac Services Ordered: 03/20/2024 [facility] Comment on above: Ordered: 03/20/2024 Cardiopulmonary rehabilitation Cardiopulmonary rehabilitation Cardiac Services Ordered: 04/02/2024 [facility] Comment on above: Ordered: 04/02/2024 Cardiopulmonary rehabilitation Cardiopulmonary rehabilitation Cardiac Services Ordered: 12/17/2023 [facility] Comment on above: Ordered: 12/17/2023 Cardiopulmonary rehabilitation Cardiopulmonary rehabilitation Cardiac Services Ordered: 12/19/2023 [facility] Comment on above: Ordered: 12/19/2023 End: 12-26-2024 CK Total CK Total Lab Routine On statin therapy 1 Occurrences starting 12/27/2023 until 12/26/2024 [facility] Work Phone: Comment on above: 1 Occurrences starting 12/27/2023 until 12/26/2024 End: 06-10-2025 Cyanocobalamin vitamin b-12 Vitamin B12 Lab Routine B12 deficiency 1 Occurrences starting 06/10/2024 until 06/10/2025 [facility] Work Phone: Comment on above: 1 Occurrences starting 06/10/2024 until 06/10/2025 ECG 12 lead ECG 12 lead ECG Routine Pre-op exam 03/11/2025 2:38 PM EDT [facility] EKG 12 Lead EKG 12 Lead ECG STAT 08/26/2024 11:14 AM EST [email or web address] INR in Platelet poor plasma by Coagulation assay [facility] End: 10-17-2025 Microalbumin - Albumin: Creatinine Urine Ratio Microalbumin - Albumin: Creatinine Urine Ratio Lab Routine Type 2 diabetes mellitus with diabetic peripheral angiopathy without gangrene, with long-term current use of insulin ([facility]) 1 Occurrences starting 10/17/2024 until 10/17/2025 [facility] [employer] Work Phone: Comment on above: 1 Occurrences starting 10/17/2024 until 10/17/2025 Patient Education [facility] Work Phone: Patient referral [facility] Work Phone: Prostate specific Ag [Mass/volume] in Serum or Plasma Prostatic specific antigen, diagnostic Lab Routine Urinary retention 12/10/2024 4:21 PM EDT [facility] Prothrombin time (PT) [facility] End: 08-26-2024 Vascular duplex lower extremity venous bilateral [email or web address] Comment on above: One Time for 1 Occurrences starting 08/04 until 08/26/2024 Immunizations Immunization Date Immunization Notes Care Provider Fa mode 12-31-2024 tetanus toxoid, redu pat diphtheria toxoid, and acellular pertussis vaccine, adsorbed Soraya Jackson [employer] 06-03-2012 influenza virus vacc ine, unspecified formulation Tom Paniagua Work Phone: [facility] [address] DO Work Phone: 09-14-2011 pneumococcal polysaccharide vaccine, 23 valent Tom Paniagua Work Phone: [facility] 06-03-2011 influenza virus vacc ine, unspecified formulation Tom Paniagua Work Phone: [facility] DO Work Phone: influenza virus vacc ine, unspecified formulation Tom Paniagua Work Phone: [facility] 250 DO Work Phone: Comment on above: 2009 Payers Payer Category Payer Medicaid [employer] MED[employer]ARE A DVANTAGE [id number] 09-03-2023 Medicare (Managed Care) [employer] [facility] MEDICARE [id number] 09-03-2023 Medicare O [employer] MEDICARE [id number] 09-03-2023 Private Health Insurance [id number] 02-01-2021 Medicare [id number] 12-02-2020 Unknown [id number] 09-03-2019 Unknown [id number] 01-08-2012 Unknown [id number] 09-03-1957 Medicare [id number] 09-03-1957 Self-pay [id number] 09-03-1957 Unknown [id number] 1957 Unknown [id number] 2.16.840.1.332842.3.579.2. 176 1957 Unknown [id number] 2.16.840.1.199340.3.579.2. 593 1957 Unknown [id number] 2.16.840.1.203799.3.579.2. 593 1957 Unknown [id number] 2.16.840.1.493595.3.579.2. 593 1957 Unknown [id number] 2.16.840.1.361279.3.579.2. 593 1957 Unknown [id number] 2.16.840.1.501033.3.579.2. 593 1957 Unknown [id number] 2.16.840.1.600323.3.579.2. 593 1957 Unknown [id number] 2.16.840.1.730464.3.579.2. 593 1957 Unknown [id number] 2.16.840.1.557796.3.579.2. 593 1957 Unknown [id number] 2.16.840.1.348522.3.579.2. 593 1957 Unknown [id number] 2.16.840.1.986029.3.579.2. 593 1957 Unknown [id number] 2.16.840.1.028306.3.579.2. 593 1957 Unknown [id number] 2.16.840.1.025331.3.579.2. 903 1957 Unknown [id number] 2.16.840.1.523965.3.579.2. 903 1957 Unknown [id number] 2.16.840.1.009734.3.579.2. 356 1957 Unknown [id number] 2.16.840.1.923423.3.579.2. 718 1957 Unknown [id number] 2.16.840.1.585549.3.579.2. 173 1957 Unknown [id number] 2.16.840.1.112824.3.579.2. 173 1957 Unknown [id number] 2.16.840.1.112465.3.579.2. 1286 1957 Unknown [id number] 2.16.840.1.209954.3.579.2. 1286 1957 Unknown [id number] 2.16.840.1.772305.3.579.2. 1286 1957 Unknown [id number] 2.16.840.1.285979.3.579.2. 128 1957 Unknown [id number] 2.16.840.1.227733.3.579.2. 1285 1957 Unknown [id number] 2.16.840.1.222437.3.579.2. 1285 1957 Unknown [id number] 2.16.840.1.501947.3.579.2. 1285 1957 Unknown [id number] 2.16.840.1.313889.3.579.2. 1285 1957 Unknown [id number] 2.16.840.1.412414.3.579.2. 1285 1957 Unknown [id number] 2.16.840.1.335129.3.579.2. 1285 1957 Unknown [id number] 2.16840.1.153096.3.579.2. 1285 1957 Unknown [id number] 2.16.840.1.144299.3.579.2. 1285 1957 Unknown [id number] 2.16.840.1.621116.3.579.2. 1285 1957 Unknown [id number] 2.16.840.1.268006.3.579.2. 1285 1957 Unknown [id number] 2.16.840.1.183438.3.579.2. 1285 1957 Unknown [id number] 2.16.840.1.645147.3.579.2. 1285 1957 Unknown [id number] 2.16.840.1.027817.3.579.2. 1285 1957 Unknown [id number] 2.16.840.1.634000.3.579.2. 1285 1957 Unknown [id number] 2.16.840.1.042590.3.579.2. 1285 1957 Unknown [id number] 2.16.840.1.310856.3.579.2. 1285 1957 Unknown [id number] 2.16.840.1.809709.3.579.2. 1285 1957 Unknown [id number] 2.16.840.1.899913.3.579.2. 1285 1957 Unknown [id number] 2.16.840.1.940661.3.579.2. 1285 1957 Unknown [id number] 2.16.840.1.323476.3.579.2. 1285 1957 Unknown [id number] 2.16.840.1.304466.3.579.2. 1285 1957 Unknown [id number] 2.16840.1.670287.3.579.2. 1285 1957 Unknown [id number] 2.16.840.1.748350.3.579.2. 1285 1957 Unknown [id number] 2.16.840.1.460644.3.579.2. 1285 1957 Unknown [id number] 2.16.840.1.069344.3.579.2. 1285 1957 Unknown [id number] 2.16.840.1.586563.3.579.2. 1285 1957 Unknown [id number] 2.16.840.1.360389.3.579.2. 1285 1957 Unknown [id number] 2.16.840.1.091652.3.579.2. 1285 1957 Unknown [id number] 2.16.840.1.911242.3.579.2. 1285 1957 Unknown [id number] 2.16.840.1.063542.3.579.2. 128 1957 Unknown [id number] 2.16.840.1.059525.3.579.2. 1285 1957 Unknown [id number] 2.16.840.1.938071.3.579.2. 1285 1957 Unknown [id number] 2.16.840.1.849264.3.579.2. 1285 1957 Unknown [id number] 2.16.840.1.589962.3.579.2. 1285 1957 Unknown [id number] 2.16.840.1.599381.3.579.2. 1285 1957 Unknown [id number] 2.16.840.1.117783.3.579.2. 1285 1957 Unknown [id number] 2.16.840.1.613593.3.579.2. 1285 1957 Unknown [id number] 2.16.840.1.904578.3.579.2. 1285 1957 Unknown [id number] 2.16.840.1.415642.3.579.2. 1285 1957 Unknown [id number] 2.16.840.1.825642.3.579.2. 1285 1957 Unknown [id number] 2.16.840.1.492952.3.579.2. 1244 1957 Unknown [id number] 2.16.840.1.151067.3.579.2. 1285 1957 Unknown [id number] 2.16.840.1.900972.3.579.2. 1285 1957 Unknown [id number] 2.16.840.1.927610.3.579.2. 1285 1957 Unknown [id number] 2.16.840.1.467211.3.579.2. 1285 1957 Unknown [id number] 2.16.840.1.161151.3.579.2. 1286 1957 Unknown [id number] 2.16.840.1.896231.3.579.2. 128 1957 Unknown [id number] 2.16.840.1.335151.3.579.2. 128 1957 Unknown [id number] 2.16.840.1.605693.3.579.2. 125 1957 Unknown [id number] 2.16.840.1.762980.3.579.2. 1258 1957 Unknown [id number] 2.16.840.1.059723.3.579.2. 1258 1957 Unknown [id number] 2.16.840.1.433916.3.579.2. 1258 1957 Unknown [id number] 2.16.840.1.686930.3.579.2. 1258 1957 Unknown [id number] 2.16.840.1.199503.3.579.2. 1258 1957 Unknown [id number] 2.16.840.1.912299.3.579.2. 1258 1957 Unknown [id number] 2.16.840.1.863830.3.579.2. 1258 1957 Unknown [id number] 2.16.840.1.422498.3.579.2. 125 1957 Unknown [id number] 2.16.840.1.867448.3.579.2. 1258 1957 Unknown [id number] 2.16.840.1.573844.3.579.2. 1258 1957 Unknown [id number] 2.16.840.1.484314.3.579.2. 1258 1957 Unknown [id number] 2.16.840.1.725709.3.579.2. 1259 1957 Unknown [id number] 2.16.840.1.514960.3.579.2. 9 1957 Unknown [id number] 2.16.840.1.118770.3.579.2. 1259 1957 Unknown [id number] 2.16.840.1.612589.3.579.2. 1258 1957 Unknown [id number] 2.16.840.1.941902.3.579.2. 1258 1957 Unknown [id number] 2.16.840.1.189403.3.579.2. 1258 1957 Unknown [id number] 2.16.840.1.761177.3.579.2. 1258 1957 Unknown [id number] 2.16.840.1.026589.3.579.2. 1258 1957 Unknown [id number] 2.16.840.1.418717.3.579.2. 125 1957 Unknown [id number] 2.16.840.1.677002.3.579.2. 9 1957 Unknown [id number] 2.16.840.1.057681.3.579.2. 1259 Unknown [id number] 2.16.840.1.587697.3.579.2. 531 Social History Date Type Detail Facility Start: 11-20-2021 End: 06-27-2022 Tobacco smoking status WIIS Never smoked tobacco (finding) [facility] Start: 11-20-2021 never [facility] Work Phone: Start: 11-20-2021 does not use [facility] Work Phone: Start: 1955 Sex Assigned At Male F [facility] Start: 03-11-2014 End: 04-17-2023 Sex Assigned At [facility] Tobacco smoking stat us NHIS Tobacco smoking consumption unknown [facility] Start: 03-11-2014 End: 04-17-2023 History of Social function [facility] Comment on above: 1-2 CUPS OF COFFEE D AILY; Start: 1955 Sex Assigned At Not on file [facility] Start: 10-17-2023 End: 03-19-2025 Alcohol intake Lifetime non-drinker (finding) [facility] Work Phone: Start: 03-27-2020 End: 07-16-2024 Exposure to SARS-CoV-2 (event) Not sure [facility] Start: 06-27-2022 End: 01-22-2024 Tobacco use and exposure Smokeless tobacco non-user [facility] Start: 04-12-2020 End: 03-20-2025 Alcoholic beverage intake Ex-drinker (finding) [facility] Start: 02-14-2021 Gender identity Identifies as male gender (finding) [facility] Start: 02-14-2021 Sexual orientation Choose not to dis close [facility] Start: 04-20-2020 End: 05-20-2020 Exposure to SARS-CoV-2 (event) Unable to assess [facility] Start: 05-01-2024 End: 03-17-2025 Alcoholic beverage intake Current drinker of alcohol (finding) [facility] How often to you hav e a drink containing alcohol? Never [facility] How many standard dr inks containing alcohol do you have on a typical day? 1 or 2 [facility] Start: 07-29-[address] inks containing alcohol do you have on a typical day? Patient does not drink [facility] Do you belong to any clubs or organizations such as mandaeism groups, unions, fraternal or athletic groups, or school groups? Yes [facility] Are you now , , , , never or living with a partner? [facility] How hard is it for y ou to pay for the very basics like food, housing, medical care, and heating Not very hard [facility] Do you feel stress - tense, restless, nervous, or anxious, or unable to sleep at night because your mind is troubled all the time - these days [OSQ] Rather much [facility] Start: 04-08-2015 End: 12-16-2024 [facility] (finding[facility] Start: 08-15-2023 End: 09-19-2023 Alcohol intake Current non-drinker of alcohol (finding) [facility] Equipment Procedure Code Equipment Code Equipment Origin al Text Equipment Identifier Dates CL STENT CAMILLA FRONTIER 2.5 X 22 FDA Start: 10-06-2023 CL STENT CAMILLA FRONTIER 2.75 X 30 FDA Start: 10-06-2023 CL STENT CAMILLA FRONTIER 3.5 X 12 FDA Start: 10-06-2023 CL STENT CAMILLA FRONTIER 4.0 X 38 FDA Start: 10-06-2023 Femoral artery closure plug/patch, synthetic polymer [id number] FDA Start: 10-06-2023 Bone Cement Palacos Radiopaque W/Gentamicin - [id number] Start: 09-11-2011 Comment on above: Description: bone ce ment with 0.5g gentamycin Cement Simplex P Bone Radiopaque Full Dose Sterile - [id number] Start: 04-12-2020 Cement Simplex P Bone Radiopaque Full Dose Sterile - [id number] Start: 04-12-2020 Ubc-Yi-L-Kind Implant - [id number]_[facility] Start: 09-11-2011 Comment on above: Description: Nex Gen Femoral Compnent Evh-Jb-J-Kind Implant - [id number] Start: 09-11-2011 Comment on above: Description: Nex Gen Tibial component Smb-Ut-A-Kind Implant - [id number] Start: 09-11-2011 Comment on above: Description: CR VICENTE CULAR SURFACE REGULAR CONSTRAINT Persona Imp Knee Surf Artc R 10 8-11 [id number] Start: 04-12-2020 Lens Iol Ultrase rt 11.5 - [id number] Start: 09-24-2018 Component Person a 11 Standard Cocr Femoral Cruciate Retain - [id number] Start: 04-12-2020 Component 38mm A ll Poly Patellar Psn - [id number] Start: 04-12-2020 Nexgen All Poly Patella 38mm 9.5mm Thick - [id number] Start: 09-11-2011 Baseplate Person a 5d G Tivanium Tibial Cemented Stem Knee Right - [id number] Start: 04-12-2020 Extension Person a 14mm Taper 30+ Mm Stem Knee Tibia - [id number] Start: 04-12-2020 Plug Nexgen Complete Knee Taper Stem - [id number] Start: 09-11-2011 Cap Lck Creo Spn l Thrd Ns Rpl Special [id number] - [id number] Start: 09-21-2023 Graft Bn Cllr Bn Mtrx Lg 10cc Vivigen Frmbl Vivigen Rpl [id number] - [id number] Start: 09-21-2023 Bridger Spnl Creo 45 mm 5.5mm Ti Crv Ns Rpl Special [id number] - [id number] Start: 09-21-2023 Screw Bn 50mm 6.5mm Cnn Spne Creo Ns Lf - [id number] Start: 09-21-2023 Test blood sugar 3 times a day [id number] Start: 02-02-2023 End: 10-15-2023 Test blood sugar 3 times a day [id number] Start: 02-02-2023 CL STENT CAMILLA FRONTIER 2.5 X 22 FDA Start: 10-06-2023 CL STENT CAMILLA FRONTIER 2.75 X 30 FDA Start: 10-06-2023 CL STENT CAMILLA FRONTIER 3.5 X 12 FDA Start: 10-06-2023 CL STENT CAMILLA FRONTIER 4.0 X 38 FDA Start: 10-06-2023 Goals Date Patient Goal Desired Activity /State Personal health goal Comment on above: Formatting of this n ote might be different from the original. Evaluation of progress towards goal: Plan to return home with spouse. Mental Status Date Assessment Result Facility 11-20-2021 Cognitive function Level of Cons ciousness Alert;Appropriate [facility] Work Phone: Clinical Notes 02-28-2012 to 03-19-2025 Gita Watts, - 03/19/2025 11:20 AM EDTPatient InstructionsAttachmentsSvetaangela Rojo Vidya, DPM - 03/17/2025 4:15 PM Nancy Castillo, S[employer] - 03/17/2025 10:00 AM EDTPatient Instructions Note Date & Type Note Facility 03-19-2025 History of Present illness Narrative Chief Complaint Patient presents with Follow-up 8 month Follow up for Coronary Artery Disease Subjective Tom Khan is a 69 y.o. male 69-year-old gentleman returns for 8-month cardiovascular follow-up, he has persistent mental health disorder, anxiety, here with a family friend today. He has significant amount of nausea, our nurses palliated him with crackers and water. He does admit to occasional shortness of breath but he states this may likely be related to his anxiety. He has no angina or exertional disability or ACS or heart failure events or repeat hospitalizations other than recent episode of falling/imbalance that required evaluation in outside ER. Non-ST elevation [place] in October 2023 with primary revascularization of the distal RCA and PLV branch and ramus branch with several drug-eluting stents and preserved LV function and notably patent PITTS-sequential graft LAD-diagonal the remainder is 3 bypass grafts are occluded. 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 omega 4-ivz-kpy-fish oil (Fish OiL) 1,000 mg (120 mg-180 [...] By signing my name below, I, Idris Stephenson LPN attest that this documentation has been [...] discussion and plan. documented in this encounter [facility] Work Phone: 03-19-2025 Instructions Lovely Torres LPN - 03/19/2025 11:20 AM [...] 38.4 Lbs Provided instructions on dietary changes. The following attachments cannot be sent through Care Everywhere.Preventing Falls ED (Liberian)Heart Healthy Diet (Liberian)documented in this encounter [facility] Work Phone: 03-17-2025 History of Present illness Narrative Images from the original note were not included. Subjective Patient ID: Tom Khan is a 69 y.o. male who presents for Nail care ( Tom Khan is a 69 y.o. male. Established patient presents today for 2 week fuv for ulcer on left hallux. PCP: Leeann Castillo LV 01/07/25, A1C: 6.0, BS: 130. SS12). HPI This is an established patient who returns to clinic for diabetic foot evaluation. He notes ulceration on the posterior aspect of the right heel. He is unsure how long it has been present. He thinks it has been caused by rubbing in his shoes. He tends to not wear socks. Review of Systems Constitutional: Negative for activity change and appetite change. Respiratory: Negative for chest tightness and shortness of breath. Cardiovascular: Positive for leg swelling. Negative for chest pain. Musculoskeletal: Positive for arthralgias. Skin: Positive for wound. Negative for color change. Neurological: Positive for numbness. Negative for weakness. Psychiatric/Behavioral: Negative for agitation and behavioral problems. Hematological: Does not bruise/bleed easily. Endocrine: Negative for cold intolerance and heat intolerance. Allergic/Immunologic: Negative for immunocompromised state. Past medical History Past Medical History: Diagnosis Date CAD (coronary artery disease) Depression Diabetes (HCC) TypeII HTN (hypertension) Pneumonia Medications Current Outpatient Medications: aspirin 81 MG EC tablet, Take 81 mg by mouth Daily, Disp: , Rfl: atorvastatin (Lipitor) 40 MG tablet, Take 40 mg by mouth Daily, Disp: , Rfl: atorvastatin (Lipitor) 80 MG tablet, Take 80 mg by mouth Daily 1/2 tab daily (Patient not taking: No sig reported), Disp: , Rfl: busPIRone (Buspar) 10 MG tablet, Take 20 mg by mouth in the morning and 20 mg before bedtime., Disp: , Rfl: busPIRone (Buspar) 5 MG tablet, Take 5 mg by mouth in the morning and 5 mg before bedtime. (Patient not taking: Reported on 03/11/2025), Disp: , Rfl: busPIRone HCl (BUSPAR PO), 20 mg in the morning and 20 mg before bedtime. (Patient not taking: Reported on 03/11/2025), Disp: , Rfl: carvedilol (Coreg) 12.5 MG tablet, Take 12.5 mg by mouth in the morning and 12.5 mg in the evening., Disp: , Rfl: cholecalciferol (Vitamin D-3) 125 MCG (5000 UT) capsule, Take 5,000 Units by mouth Daily, Disp: , Rfl: clopidogrel (Plavix) 75 MG tablet, Take 75 mg by mouth Daily, Disp: , Rfl: divalproex (Depakote) 125 MG EC tablet, Take 250 mg by mouth in the morning and 250 mg before bedtime. Do not crush, chew, or split., Disp: , Rfl: divalproex sprinkle (Depakote Sprinkle) [address] capsule, TAKE 2 TABLETS BY MOUTH TWICE DAILY FOR 30 DAYS, Disp: , Rfl: DULoxetine (Cymbalta) [address] capsule, Take 30 mg by mouth Daily (Patient not taking: Reported on 03/11/2025), Disp: , Rfl: DULoxetine (Cymbalta) [address] capsule, Take 60 mg by mouth Daily, Disp: , Rfl: DULoxetine HCl 60 MG Capsule Delayed Release Sprinkle, Take 60 mg by mouth in the morning. (Patient not taking: Reported on 03/11/2025), Disp: , Rfl: furosemide (Lasix) 20 MG tablet, Take by mouth PRN, Disp: , Rfl: furosemide (Lasix) 20 MG tablet, Take 20 mg by mouth (Patient taking differently: Take 20 mg by mouth Daily), Disp: , Rfl: gentamicin (Garamycin) 0.1 % ointment, Apply to wound once daily., Disp: 30 g, Rfl: 0 hydrOXYzine HCl (Atarax) 25 MG tablet, TAKE 1 TABLET BY MOUTH 4 TIMES A DAY NEEDED FOR ANXIETY OR INSOMNIA (Patient not taking: Reported on 03/11/2025), Disp: , Rfl: hyoscyamine (Levsin) 0.125 MG SL tablet, Take 125 mcg by mouth every 4 (four) hours if needed (Patient not taking: Reported on 03/11/2025), Disp: , Rfl: insulin lispro (Admelog SoloStar) 100 UNIT/ML injection, Inject under the skin in the morning and at noon and in the evening. Inject with meals., Disp: , Rfl: Insulin Lispro 100 UNIT/ML solution, Inject under the skin in the morning and at noon and in the evening. Inject with meals. (Patient not taking: Reported on 02/23/2025), Disp: , Rfl: Jardiance 25 MG, Take 25 mg by mouth Daily, Disp: , Rfl: labetalol (Normodyne) 200 MG tablet, Take 1 tablet by mouth in the morning and 1 tablet before bedtime. (Patient not taking: Reported on 02/23/2025), Disp: , Rfl: LORazepam (Ativan) 0.5 MG tablet, Take 0.5 mg by mouth every 6 (six) hours if needed PRN, Disp: , Rfl: LORazepam (Ativan) 1 MG tablet, TAKE 1 TABLET BY MOUTH EVERY 8 HOURS NEEDED FOR ANXIETY FOR UP TO 10 DAYS (Patient not taking: Reported on 03/11/2025), Disp: , Rfl: losartan (Cozaar) 25 MG tablet, Take 25 mg by mouth in the morning., Disp: , Rfl: melatonin 3 MG tablet, , Disp: , Rfl: mirtazapine (Remeron) 15 MG tablet, Take 15 mg by mouth at bedtime, Disp: , Rfl: mirtazapine (Remeron) 15 MG tablet, Take 15 mg by mouth at bedtime, Disp: , Rfl: Natural Vitamin D-3 125 MCG (5000 UT) tablet, TAKE 1 TABLET (5,000 UNITS TOTAL) BY MOUTH IN THE MORNING., Disp: , Rfl: nitroglycerin (Nitrostat) 0.4 MG SL tablet, every 5 (five) minutes if needed, Disp: , Rfl: Wingate-3 Fatty Acids (Fish Oil) 1200 MG capsule delayed-release, Take by mouth, Disp: , Rfl: Ozempic, 2 MG/DOSE, 8 MG/3ML solution pen-injector, , Disp: , Rfl: Potassium 99 MG tablet, Take by mouth, Disp: , Rfl: potassium chloride CR (Klor-Con) 10 MEQ ER tablet, TAKE 1 TABLET (10 MEQ) BY MOUTH ONCE DAILY. DO NOT CRUSH, CHEW, OR SPLIT., Disp: , Rfl: potassium chloride ER (Micro-K) 10 MEQ ER capsule, Take 10 mEq by mouth Daily as needed, Disp: , Rfl: risperiDONE (RisperDAL) 0.5 MG tablet, , Disp: , Rfl: sildenafil (Viagra) 50 MG tablet, Take 50 mg by mouth Daily as needed (Patient not taking: Reported on 02/23/2025), Disp: , Rfl: spironolactone (Aldactone) 25 MG tablet, Take by mouth Daily 1/2 tab daily, Disp: , Rfl: Toujeo Max SoloStar 300 UNIT/ML injection, Inject 42 Units under the skin in the morning., Disp: , Rfl: traZODone (Desyrel) 100 MG tablet, TAKE 1/2 TO 1 TABLET BY MOUTH AT BEDTIME NEEDED FOR SLEEP (Patient not taking: Reported on 03/11/2025), Disp: , Rfl: traZODone (Desyrel) 50 MG tablet, , Disp: , Rfl: Allergies Patient has no known allergies. Past Surgical History Past Surgical History: Procedure Laterality Date CATARACT EXTRACTION Bilateral CORONARY ANGIOPLASTY WITH STENT PLACEMENT 10/06/2023 CORONARY ARTERY BYPASS GRAFT CORONARY ARTERY BYPASS GRAFT KNEE ARTHROSCOPY W/ DEBRIDEMENT Bilateral LAMINECTOMY 09/05/2023 RETINAL DETACHMENT SURGERY SEPTOPLASTY SHOULDER ARTHROSCOPY Left TOTAL KNEE ARTHROPLASTY Right 04/2020 TOTAL KNEE ARTHROPLASTY Left Family History Family History Problem Relation Name Age of Onset Diabetes Mother Cailin Khan Stroke Mother Cailin Khan Congenital heart disease Father Mental illness Other Hypertension Other Objective Physical Exam Constitutional: General: He is not in acute distress. Comments: Presents to clinic ambulating unassisted. He is wearing shoes without socks. Cardiovascular: Comments: DP pulse: 2/4 PT pulse: 2/4 Skin temperature is warm to warm Edema: +1 pitting bilaterally. Multiple telangiectasias and varicosities bilaterally. Pulmonary: Effort: Pulmonary effort is normal. No respiratory distress. Musculoskeletal: Cervical back: Neck supple. No rigidity. Comments: Pedal deformities: Pes planus morphology with multiple hammertoe contractures bilaterally. Hallux malleus bilaterally with mild erythema on the dorsum of the left hallux IPJ. Skin: Capillary Refill: Capillary refill takes 2 to 3 seconds. Comments: 7 toenails exhibit clinical mycosis with thickened appearance, yellow/brown discoloration, crumbly texture, subungual debris. All 10 toenails are elongated. Hyperkeratotic tissue: Left foot: Plantar tuft of the hallux, plantar tuft of the 2nd toe. Second toe lesion has a preulcerative lesion. No ulceration after debridement today. Right foot: None Skin is diffusely thin. Ulcer #1 Ulcer location: Posterior Achilles, right Ulcer size: 03/17/2025: 0.6 x 1 x 0.1 cm Other characteristics: Moderate periwound hyperkeratosis. Wound bed granular. Scant serous discharge. No exposed tendon. No probing, tunneling, undermining. Neurological: Mental Status: He is alert. Comments: Protective sensation intact at 3/10 pedal sites Vibratory sensation diminished at the 1st MTP bilaterally. Psychiatric: Mood and Affect: Mood normal. Behavior: Behavior normal. Assessment/Plan ICD-10-CM 1. Ulcer of right foot with fat layer exposed ([facility]) L97.512 gentamicin (Garamycin) 0.1 % ointment 2. Contusion of lesser toe of left foot without damage to nail, subsequent encounter S90.122D 3. Dermatophytosis of nail B35.1 4. Dystrophic nail L60.3 5. Corns and callosities L84 6. Diabetic polyneuropathy associated with type 2 diabetes mellitus ([facility]) E11.42 Patient was examined and evaluated. 10 toenails were debrided in length and thickness today utilizing a nail nipper and electric bur profile grinder technician without incident. Sterile 15. Blade utilized by me to reduce all hyperkeratotic tissue without incident. He has preulcerative lesion of the left 2nd toe and we will continue to monitor this closely. This is likely due to his hammertoe contracture which is semi flexible in nature. Consider flexor tenotomy/plantar capsulotomy in the future if he continues to have issues with the toe and preulcerative lesions. Patient noted to have ulceration on the posterior Achilles, right. Selective debridement was performed on ulceration #1 with sterile 15. Blade down to the level of subcutaneous tissue to remove selective skin and nonviable tissue. Post debridement appearance of the wound: Granular with decreased bioburden and fibrotic slough. Ulceration was flushed with copious amounts of saline. Wound was dressed with Amerigel dressing. Prescription for gentamicin ointment sent to his pharmacy. Dressing should be changed daily. Wound offloaded with sandals. I have asked him to wear socks and avoid barefoot walking. He will wear open back shoes to reduce rubbing on the Achilles tendon. Follow up in 2 weeks for ulceration check. This note was created with the assistance of a speech recognition program. While intending to generate a timely document that accurately reflects the content of the visit, no guarantee can be provided that every grammatical or spelling mistake has been or will be identified or corrected. Thank you for your understanding. Mc Chatman DPM documented in this encounter [facility] 03-17-2025 History of Present illness Narrative Subjective SUBJECTIVE: Patient ID: Tom Khan is a 69 y.o. male who presents for a Medicare Annual Wellness exam. HPI The following portions of the patient's history were reviewed and updated as appropriate: allergies, current medications, past family history, past medical history, past social history, past surgical history and problem list. 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 Pt denies SI or HI. 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 The patient is nervous/anxious. Objective PHYSICAL EXAMINATION: Vitals: 03/17/25 1019 BP: 140/82 BP Site: Left Arm BP Postition: Sitting Pulse: 76 Temp: 36.2 C (97.2 F) SpO2: 98% Weight: 116.6 kg (257 lb) [...] gangrene, with long-term current use of insulin ([facility]) - TOUJEO MAX U-300 SOLOSTAR 300 unit/mL (3 mL) insulin pen; Inject 42 Units under the skin in the morning. Up to 75 units daily. Primary hypertension Pseudodementia - Ambulatory referral to Neurology (Non[facility]); Future Obesity, morbid ([facility] [facility] CAD, multiple vessel Mixed hyperlipidemia Moderate episode of recurrent major depressive disorder ([facility]) Gait disturbance Neuropsych evaluation He is scheduled with neurology and routinely sees psychiatry I recommend he hold off on shoulder placement as he is not having any profound shoulder symptoms. Neuropsych symptoms need better managed first. Recommend he does proceed with the colonoscopy however F/U 3 months TERRY Monteiro 03/20/25 [id number] documented in this encounter [facility] 02-23-2025 History of Present illness Narrative Images from the original note were not included. Subjective Patient ID: Tom Khan is a 69 y.o. male who presents for Follow-up (Established patient presents today for 2 week fuv for ulcer on left hallux. PCP: Leeann Castillo LV 01/07/25, A1C: 6.0, BS: 213). HPI Established patient returns to clinic for follow up evaluation of the left hallux ulceration. He notes resolution of the ulceration. Review of Systems Constitutional: Negative for activity change and appetite change. Respiratory: Negative for chest tightness and shortness of breath. Cardiovascular: Positive for leg swelling. Negative for chest pain. Musculoskeletal: Positive for arthralgias. Skin: Negative for color change and wound. Neurological: Positive for numbness. Negative for weakness. Psychiatric/Behavioral: Negative for agitation and behavioral problems. Hematological: Does not bruise/bleed easily. Endocrine: Negative for cold intolerance and heat intolerance. Allergic/Immunologic: Negative for immunocompromised state. Past medical History Past Medical History: Diagnosis Date CAD (coronary artery disease) Depression Diabetes (HCC) TypeII HTN (hypertension) Medications Current Outpatient Medications: aspirin 81 MG EC tablet, Take 81 mg by mouth Daily, Disp: , Rfl: atorvastatin (Lipitor) 80 MG tablet, Take 80 mg by mouth Daily 1/2 tab daily, Disp: , Rfl: busPIRone HCl (BUSPAR PO), 20 mg in the morning and 20 mg before bedtime., Disp: , Rfl: carvedilol (Coreg) 12.5 MG tablet, Take 12.5 mg by mouth in the morning and 12.5 mg in the evening., Disp: , Rfl: cholecalciferol (Vitamin D-3) 125 MCG (5000 UT) capsule, Take 5,000 Units by mouth Daily, Disp: , Rfl: clopidogrel (Plavix) 75 MG tablet, Take 75 mg by mouth Daily, Disp: , Rfl: divalproex (Depakote) 125 MG EC tablet, Take 250 mg by mouth in the morning and 250 mg before bedtime. Do not crush, chew, or split., Disp: , Rfl: DULoxetine HCl 60 MG Capsule Delayed Release Sprinkle, Take 60 mg by mouth in the morning., Disp: , Rfl: furosemide (Lasix) 20 MG tablet, Take by mouth PRN, Disp: , Rfl: insulin lispro (Admelog SoloStar) 100 UNIT/ML injection, Inject under the skin in the morning and at noon and in the evening. Inject with meals., Disp: , Rfl: Jardiance 25 MG, Take 25 mg by mouth Daily, Disp: , Rfl: LORazepam (Ativan) 0.5 MG tablet, Take 0.5 mg by mouth in the morning and 0.5 mg before bedtime. PRN., Disp: , Rfl: losartan (Cozaar) 25 MG tablet, Take 25 mg by mouth in the morning., Disp: , Rfl: melatonin 3 MG tablet, , Disp: , Rfl: mirtazapine (Remeron) 15 MG tablet, Take 15 mg by mouth at bedtime, Disp: , Rfl: nitroglycerin (Nitrostat) 0.4 MG SL tablet, every 5 (five) minutes if needed, Disp: , Rfl: Wingate-3 Fatty Acids (Fish Oil) 1200 MG capsule delayed-release, Take by mouth, Disp: , Rfl: Ozempic, 2 MG/DOSE, 8 MG/3ML solution pen-injector, , Disp: , Rfl: Potassium 99 MG tablet, Take by mouth, Disp: , Rfl: risperiDONE (RisperDAL) 1 MG tablet, Take 1 mg by mouth in the morning and 1 mg before bedtime. 1/2 in AM, 1/2 in PM., Disp: , Rfl: semaglutide (Ozempic, 0.25 or 0.5 MG/DOSE,) 2 MG/1.5ML solution pen-injector, , Disp: , Rfl: spironolactone (Aldactone) 25 MG tablet, Take by mouth Daily 1/2 tab daily, Disp: , Rfl: Toujeo Max SoloStar 300 UNIT/ML injection, Inject 42 Units under the skin in the morning., Disp: , Rfl: Insulin Lispro 100 UNIT/ML solution, Inject under the skin in the morning and at noon and in the evening. Inject with meals. (Patient not taking: Reported on 02/23/2025), Disp: , Rfl: labetalol (Normodyne) 200 MG tablet, Take 1 tablet by mouth in the morning and 1 tablet before bedtime. (Patient not taking: Reported on 02/23/2025), Disp: , Rfl: sildenafil (Viagra) 50 MG tablet, Take 50 mg by mouth Daily as needed (Patient not taking: Reported on 02/23/2025), Disp: , Rfl: traZODone (Desyrel) 50 MG tablet, , Disp: , Rfl: Allergies Patient has no known allergies. Past Surgical History Past Surgical History: Procedure Laterality Date CATARACT EXTRACTION Bilateral CORONARY ANGIOPLASTY WITH STENT PLACEMENT 10/06/2023 CORONARY ARTERY BYPASS GRAFT CORONARY ARTERY BYPASS GRAFT KNEE ARTHROSCOPY W/ DEBRIDEMENT Bilateral LAMINECTOMY 09/05/2023 SEPTOPLASTY SHOULDER ARTHROSCOPY Left TOTAL KNEE ARTHROPLASTY Right 04/2020 TOTAL KNEE ARTHROPLASTY Left Family History Family History Problem Relation Name Age of Onset Diabetes Mother Cailin Khan Stroke Mother Cailin Khan Congenital heart disease Father Mental illness Other Hypertension Other Objective Physical Exam Constitutional: General: He is not in acute distress. Cardiovascular: Comments: DP pulse: 2/4 PT pulse: 2/4 Skin temperature is warm to warm Edema: +1 pitting bilaterally. Multiple telangiectasias and varicosities bilaterally. Pulmonary: Effort: Pulmonary effort is normal. No respiratory distress. Musculoskeletal: Cervical back: Neck supple. No rigidity. Comments: Pedal deformities: Pes planus morphology with multiple hammertoe contractures bilaterally. Hallux malleus bilaterally with mild erythema on the dorsum of the left hallux IPJ. Skin: Capillary Refill: Capillary refill takes 2 to 3 seconds. Comments: 7 toenails exhibit clinical mycosis with yellow/brown discoloration, crumbly texture, subungual debris. Manicured for length, thickness. Ulcer #1 Ulcer location: Plantar tuft of the hallux, left Ulcer size: 02/23/2025: Epithelialized 02/03/2025: 1.5 x 0.5 x 0.1 cm Other characteristics: Neurological: Mental Status: He is alert. Comments: Protective sensation intact at 3/10 pedal sites Vibratory sensation diminished at the 1st MTP bilaterally. Psychiatric: Mood and Affect: Mood normal. Behavior: Behavior normal. Assessment/Plan ICD-10-CM 1. Diabetic polyneuropathy associated with type 2 diabetes mellitus ([facility]) E11.42 2. Ulcer of left foot with fat layer exposed ([facility]) L97.522 3. Hammer toe of left foot M20.42 Patient examined and evaluated. Thankfully his ulceration has healed. It is completely epithelialized today. He does have preulcerative lesions on the plantar hallux and the left 2nd toe as well. This is likely due to the hallux malleus and hammertoe contractures discussed. At this time I recommend close observation of the area. Recommend that he perform regular pumice stone debridement on the hyperkeratotic tissue to reduce buildup and future ulceration. He will monitor the toes closely for any redness, drainage. We may have to consider percutaneous flexor tenotomy of the left 2nd toe if he continues to have preulcerative lesion in this area. For now I will see him back for his regularly scheduled diabetic foot check. This note was created with the assistance of a speech recognition program. While intending to generate a timely document that accurately reflects the content of the visit, no guarantee can be provided that every grammatical or spelling mistake has been or will be identified or corrected. Thank you for your understanding. Mc Chatman DPM documented in this encounter [facility] 02-03-2025 History of Present illness Narrative Images from the original note were not included. Subjective Patient ID: Tom Khan is a 69 y.o. male who presents for Toe Problem (Established patient presents today for ulcer on LGT. Patient states he noticed it about a week ago, and also relates swelling, states it's been swollen for about 2 weeks. Patient rleates falling stubbing left 2nd toe, states he thinks it may be broken, states it was bruised. Has been using neosporin. Pt also requesting nail care. PCP: Dr. Mini RUIZ 11/19/24, A1C: 7.2, BS: 105, SS: 11.5). HPI Established patient presents to clinic with new concern of possible infection of his left foot. Patient states that he fell about a week or so ago. He had some bruising and swelling with blistering on the big toe. The blister seems to have opened into an ulceration. His has been applying Neosporin. Patient also requesting nail debridement today. Review of Systems Constitutional: Negative for activity change and appetite change. Respiratory: Negative for chest tightness and shortness of breath. Cardiovascular: Positive for leg swelling. Negative for chest pain. Musculoskeletal: Positive for arthralgias. Skin: Positive for color change and wound. Neurological: Positive for numbness. Negative for weakness. Psychiatric/Behavioral: Negative for agitation and behavioral problems. Hematological: Does not bruise/bleed easily. Endocrine: Negative for cold intolerance and heat intolerance. Allergic/Immunologic: Negative for immunocompromised state. Past medical History Past Medical History: Diagnosis Date CAD (coronary artery disease) ([facility]) Depression ([facility]) Diabetes ([facility]) TypeII HTN (hypertension) ([facility]) Medications Current Outpatient Medications: aspirin 81 MG EC tablet, Take 81 mg by mouth Daily, Disp: , Rfl: atorvastatin (Lipitor) 80 MG tablet, Take 80 mg by mouth Daily 1/2 tab daily, Disp: , Rfl: busPIRone HCl (BUSPAR PO), 20 mg in the morning and 20 mg before bedtime., Disp: , Rfl: carvedilol (Coreg) 12.5 MG tablet, Take 12.5 mg by mouth in the morning and 12.5 mg in the evening., Disp: , Rfl: cholecalciferol (Vitamin D-3) 125 MCG (5000 UT) capsule, Take 5,000 Units by mouth Daily, Disp: , Rfl: clopidogrel (Plavix) 75 MG tablet, Take 75 mg by mouth Daily, Disp: , Rfl: divalproex (Depakote) 125 MG EC tablet, Take 250 mg by mouth in the morning and 250 mg before bedtime. Do not crush, chew, or split., Disp: , Rfl: DULoxetine HCl 60 MG Capsule Delayed Release Sprinkle, Take 60 mg by mouth in the morning., Disp: , Rfl: furosemide (Lasix) 20 MG tablet, Take by mouth PRN, Disp: , Rfl: insulin lispro (Admelog SoloStar) 100 UNIT/ML injection, Inject under the skin in the morning and at noon and in the evening. Inject with meals., Disp: , Rfl: Jardiance 25 MG, Take 25 mg by mouth Daily, Disp: , Rfl: LORazepam (Ativan) 0.5 MG tablet, Take 0.5 mg by mouth in the morning and 0.5 mg before bedtime. PRN., Disp: , Rfl: losartan (Cozaar) 25 MG tablet, Take 25 mg by mouth in the morning., Disp: , Rfl: melatonin 3 MG tablet, , Disp: , Rfl: mirtazapine (Remeron) 15 MG tablet, Take 15 mg by mouth at bedtime, Disp: , Rfl: nitroglycerin (Nitrostat) 0.4 MG SL tablet, every 5 (five) minutes if needed, Disp: , Rfl: Wingate-3 Fatty Acids (Fish Oil) 1200 MG capsule delayed-release, Take by mouth, Disp: , Rfl: Ozempic, 2 MG/DOSE, 8 MG/3ML solution pen-injector, , Disp: , Rfl: Potassium 99 MG tablet, Take by mouth, Disp: , Rfl: risperiDONE (RisperDAL) 1 MG tablet, Take 1 mg by mouth in the morning and 1 mg before bedtime. 1/2 in AM, 1/2 in PM., Disp: , Rfl: semaglutide (Ozempic, 0.25 or 0.5 MG/DOSE,) 2 MG/1.5ML solution pen-injector, , Disp: , Rfl: spironolactone (Aldactone) 25 MG tablet, Take by mouth Daily 1/2 tab daily, Disp: , Rfl: Toujeo Max SoloStar 300 UNIT/ML injection, Inject 42 Units under the skin in the morning., Disp: , Rfl: Insulin Lispro 100 UNIT/ML solution, Inject under the skin in the morning and at noon and in the evening. Inject with meals. (Patient not taking: Reported on 02/03/2025), Disp: , Rfl: labetalol (Normodyne) 200 MG tablet, Take 1 tablet by mouth in the morning and 1 tablet before bedtime. (Patient not taking: Reported on 02/03/2025), Disp: , Rfl: sildenafil (Viagra) 50 MG tablet, Take 50 mg by mouth Daily as needed (Patient not taking: Reported on 02/03/2025), Disp: , Rfl: traZODone (Desyrel) 50 MG tablet, , Disp: , Rfl: Allergies Patient has no known allergies. Past Surgical History Past Surgical History: Procedure Laterality Date CATARACT EXTRACTION Bilateral CORONARY ANGIOPLASTY WITH STENT PLACEMENT 10/06/2023 CORONARY ARTERY BYPASS GRAFT CORONARY ARTERY BYPASS GRAFT KNEE ARTHROSCOPY W/ DEBRIDEMENT Bilateral LAMINECTOMY 09/05/2023 SEPTOPLASTY SHOULDER ARTHROSCOPY Left TOTAL KNEE ARTHROPLASTY Right 04/2020 TOTAL KNEE ARTHROPLASTY Left Family History Family History Problem Relation Name Age of Onset Diabetes Mother Cailin Khan Stroke Mother Cailin Khan Congenital heart disease Father Mental illness Other Hypertension Other Objective Physical Exam Constitutional: General: He is not in acute distress. Cardiovascular: Comments: DP pulse: 2/4 PT pulse: 2/4 Skin temperature is warm to warm Edema: +1 pitting bilaterally. Multiple telangiectasias and varicosities bilaterally. Pulmonary: Effort: Pulmonary effort is normal. No respiratory distress. Musculoskeletal: Cervical back: Neck supple. No rigidity. Comments: Pedal deformities: Pes planus morphology with multiple hammertoe contractures bilaterally. Hallux malleus bilaterally with mild erythema on the dorsum of the left hallux IPJ. Skin: Capillary Refill: Capillary refill takes 2 to 3 seconds. Comments: 7 toenails exhibit clinical mycosis with thickened appearance, yellow/brown discoloration, crumbly texture, subungual debris. All 10 toenails are slightly elongated. Ulcer #1 Ulcer location: Plantar tuft of the hallux, left Ulcer size: 02/03/2025: 1.5 x 0.5 x 0.1 cm Other characteristics: No cellulitis or purulence. Scant serous discharge. Does not tunnel, undermined, probe. Wound bed 90 percent granular. Neurological: Mental Status: He is alert. Comments: Protective sensation intact at 3/10 pedal sites Vibratory sensation diminished at the 1st MTP bilaterally. Psychiatric: Mood and Affect: Mood normal. Behavior: Behavior normal. XR foot 3+ views left Imaging Result: AP, medial oblique, lateral views are weight-bearing. Significantly decreased calcaneal inclination, increased talar declination. Enthesophyte at the insertion of the Achilles tendon. I do not appreciate any acute fractures. There does seem to be a chronic, healed fracture of the 4th proximal phalanx but it has cortical continuity without any fracture line visible. Exquisite contracture of all 5 toes. Assessment/Plan ICD-10-CM 1. Ulcer of left foot with fat layer exposed ([facility]) L97.522 XR foot 3+ views left 2. Diabetic polyneuropathy associated with type 2 diabetes mellitus ([facility]) E11.42 3. Dermatophytosis of nail B35.1 4. Contusion of lesser toe of left foot without damage to nail, initial encounter S90.122A XR foot 3+ views left Patient examined and evaluated. He describes an injury to the left foot and does appear to have possible blister that caused ulceration of the tuft of the hallux. Selective debridement was performed on ulceration #1 with sterile 15. Blade down to the level of subcutaneous tissue to remove selective skin and nonviable tissue. Post debridement appearance of the wound: Increased granular appearance with decreased bioburden and fibrotic slough. Ulceration was flushed with copious amounts of saline. Wound was dressed with Amerigel dressing. Dressing should be changed daily. Wound offloaded with custom padding added directly to his shoe. He should have a surgical shoe at home from previous wound on the right foot. I recommend switching to a surgical shoe and I gave his multiple padding options for additional offloading in the surgical shoe. If they are unable to find the surgical shoe at home I recommend returning to the office for fitting and dispensing of the surgical shoe with PEG assist offloading. Due to the traumatic nature described I recommend radiographs of the left foot. Three radiographs were obtained and I discussed my findings. No erosive changes to suggest osteomyelitis. I did see a chronic fracture of the 4th toe but nothing that suggested acute fracture. Discussed the importance of offloading the wound at all times. Patient and his are leaving for vacation this coming Sunday. I can not stress the importance of staying off of the foot as much as possible. Recommend avoiding pools and hot tubs. Wear padded shoe with custom offloading at all time or surgical shoe with custom offloading. Follow up 2 weeks. Nails debrided in length and thickness with a nail Nipper and bur profile grinder technician without incident. Patient has signed an ABN for this service today. This note was created with the assistance of a speech recognition program. While intending to generate a timely document that accurately reflects the content of the visit, no guarantee can be provided that every grammatical or spelling mistake has been or will be identified or corrected. Thank you for your understanding. Mc Chatman DPM documented in this encounter [facility] 01-14-2025 History of Present illness Narrative REASON FOR VISIT: Tom Khan returns today for follow up of his diabetes. DIABETES HISTORY: Type of Diabetes: 2 Duration of Diabetes : since 2018 INTERVAL HISTORY: Hgb A1c is 6.6 % today, from 7.5% at last visit. Psych meds were recently changed Patient had a heart attack October 23, 2023 needing cardiac stenting x4. He is currently on Plavix. Also found to have gallbladder stones in awaiting cholecystectomy. Has not been cleared by Cardiology to go ahead with this. He has also had foot infection needing antibiotics. Currently seeing Podiatry. DIABETES COMPLICATIONS/SURVEILLANCE: Retinopathy: yes Last eye exam: 2024 Nephropathy: no Peripheral neuropathy: yes Sees podiatry: [...] : yes GLUCOSE CONTROL: Diabetes medications: Toujeo 42 units HS Humalog scale before meals (80-100: 8u, 101-150= 16 u, 151-200= 18 u, 201-250= 20, >250= 22 u Jardiance 25 mg daily Ozempic 2 mg weekly Blood glucose summary: Patient uses Dexcom G7 Insulin pump/ Continuous glucose monitoring sensor data is available to review under Media tab yes 14 day average BG is 144 Time in range is 86% Hypoglycemia 0 % Predicted hba1c 6.8% Pattern/causes of high BG: post prandial Pattern/causes of low BG: rare Hypoglycemia: Awareness: GOOD Frequency: rare Glucagon available: no Past Medical History: Diagnosis Date Acute [place] ([facility] 10/15/2023 Angina pectoris Anxiety Arthritis osteoarthritis Autonomic neuropathy due to type 2 diabetes mellitus ([facility]) 06/01/2022 Back pain CAD, multiple vessel 08/30/2023 Cardiomegaly Cataract Cataract, nuclear sclerotic senile, right 08/14/2018 Added automatically from request for surgery [id number] CHF (congestive heart failure) ([facility] Chronic diastolic CHF (congestive heart failure) ([facility]) 02/05/2023 Complaint of paresthesia 11/16/2022 Constipation 10/15/2023 Coronary arteriosclerosis 06/01/2022 Coronary artery disease Status post CABG COVID-19 Dental disease crowns Depression Deviated septum Diabetes mellitus ([facility]) 08/30/2023 Diabetes mellitus type 2, controlled ([facility]) Difficult intravenous access OSEI (dyspnea on exertion) Esophageal reflux 08/30/2023 Esophageal stricture Fatigue 06/28/2011 Fractures Gallstone Gallstones 04/03/2024 GERD (gastroesophageal reflux disease) H/O esophagogastroduodenoscopy dilatation Heart attack ([facility]) 10/06/2023 4 stints Hiatal hernia Hyperlipidemia Hypertension Hyponatremia Incontinence of bowel Incontinence of urine 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 Lower extremity weakness 09/20/2023 MCI (mild cognitive impairment) 02/25/2021 Mild cognitive impairment Mixed anxiety and depressive disorder 09/07/2017 Mixed hyperlipidemia 06/28/2011 Last Assessment & Plan: Assessment: no meds currently ,stable Moderate episode of recurrent major depressive disorder ([facility]) 12/25/2022 Obesity Obesity (BMI 30-39.9) 08/30/2023 Obesity, Class II, BMI 35-39.9 04/13/2020 Obsessive compulsive disorder Obsessive-compulsive disorder 11/07/2018 Obstructive sleep apnea syndrome 06/01/2022 Peripheral neuropathy Pneumonia PONV (postoperative nausea and vomiting) Primary hypertension 06/28/2011 Last Assessment & Plan: Assessment: on med,moniotred per PCP BP 143/74 pulse 64 Primary osteoarthritis of right knee 06/01/2022 Last Assessment & Plan: Assessment: will have surgery Pseudophakia 05/05/2011 Pulmonary vascular congestion Retinal detachment 06/01/2022 S/P total knee arthroplasty, right 04/12/2020 Salmonella Sleep apnea cpap Spinal stenosis at L4-L5 level 10/15/2023 ST elevation myocardial infarction (STEMI) of inferior wall ([facility]) 10/15/2023 Type 2 diabetes mellitus with diabetic peripheral angiopathy without gangrene, with long-term current use of insulin ([facility]) 10/13/2019 Urinary retention Visual impairment glasses retinal detatchment Vitamin D deficiency Vitreous hemorrhage ([facility]) Vocal cord granuloma Past Surgical History: Procedure Laterality Date BACK SURGERY Left Circumferential 09/21/2023 fusion CATARACT EXTRACTION, BILATERAL Bilateral COLONOSCOPY 2012 CORONARY ARTERY BYPASS GRAFT ESOPHAGOGASTRODUODENOSCOPY dilatation EYE SURGERY Bilateral LAMINECTOMY LUMBAR SINGLE LEVEL / L4/5 N/A 09/21/2023 Performed by Mynor Steen MD at [facility] POSTERIOR LAMINECTOMY FUSION LUMBAR SINGLE LEVEL / L4/5 N/A 09/21/2023 Performed by Mynor Steen MD at [facility] REPLACEMENT TOTAL KNEE Bilateral ROTATOR CUFF REPAIR SEPTOPLASTY Current Outpatient Medications: acetaminophen (TYLENOL EXTRA STRENGTH) 500 mg tablet, , Disp: , Rfl: ADMELOG SOLOSTAR U-100 INSULIN 100 unit/mL insulin pen, Per scale up to 25 units 3 times daily with meals, max dose of 75 units daily, Disp: 75 mL, Rfl: 3 aspirin 81 mg, , Disp: , Rfl: atorvastatin (LIPITOR) 40 mg tablet, Take 1 tablet (40 mg total) by mouth in the morning., Disp: 90 tablet, Rfl: 3 busPIRone (BUSPAR) 10 mg tablet, Take 2 tablets (20 mg total) by mouth in the morning and 2 tablets (20 mg total) before bedtime., Disp: , Rfl: carvediloL (COREG) 12.5 mg [...] the morning., Disp: , Rfl: DULoxetine (CYMBALTA) 60 mg capsule, Take 1 capsule (60 mg total) by mouth in the morning., Disp: , Rfl: furosemide (LASIX) 20 mg tablet, Take 1 tablet (20 mg total) by mouth daily., Disp: 90 tablet, Rfl: 1 hyoscyamine (LEVSIN) 0.125 mg SL tablet, Take 1 tablet (125 mcg total) by mouth every 4 (four) hours as needed for cramping., Disp: 30 tablet, Rfl: 0 JARDIANCE 25 mg tablet tablet, TAKE 1 TABLET (25 MG TOTAL) BY MOUTH IN THE MORNING, Disp: 90 tablet, Rfl: 3 losartan (COZAAR) 25 mg tablet, Take 1 tablet (25 mg total) by mouth in the morning., Disp: , Rfl: melatonin (CIRCADIN) tablet, Take 2 tablets (6 mg total) by mouth nightly. 1-2 tabs as needed nightly, Disp: , Rfl: mirtazapine (REMERON) 15 mg tablet, Take 1 tablet (15 mg total) by mouth once daily at bedtime., Disp: , Rfl: nitroglycerin (NITROSTAT) 0.4 MG SL tablet, , Disp: , Rfl: omega 2-zva-hwv-fish oil (Fish OiL) 300-1,000 mg capsule, Take by mouth., Disp: , Rfl: potassium chloride (KLOR-CON SPRINKLE) 10 MEQ CR capsule, Take 1 capsule (10 mEq total) by mouth as needed. Per Dr. Watts, Disp: , Rfl: QUEtiapine (SEROquel) 100 mg tablet, Take 2 tablets (200 mg total) by mouth nightly. Increase 50 mg until 100mg 7 days increase another 100mg until 200mg and stop., Disp: , Rfl: semaglutide (OZEMPIC) 2 mg/dose (8 mg/3 mL) pen injector, Inject 2 mg under the skin every 7 days., Disp: 9 mL, Rfl: 3 spironolactone (ALDACTONE) 25 mg tablet, , Disp: , Rfl: TOUJEO MAX U-300 SOLOSTAR 300 unit/mL (3 mL) insulin pen, Inject 50 Units under the skin in the morning. Up to 75 units daily. (Patient taking differently: Inject 42 Units under the skin in the morning. Up to 75 units daily.), Disp: 27 mL, Rfl: 3 hydrOXYzine (ATARAX) 25 mg tablet, Take 1 tablet (25 mg total) by mouth Medrol Dose Pack scheduling ONLY. (Patient not taking: Reported on 01/14/2025), Disp: , Rfl: risperiDONE (RisperDAL) 1 mg tablet, Take 1 tablet (1 mg total) by mouth in the morning and 1 tablet (1 mg total) before bedtime. (Patient not taking: Reported on 01/14/2025), Disp: , Rfl: traZODone (DESYREL) 100 mg tablet, Take 1 tablet (100 mg total) by mouth nightly as needed. (Patient not taking: Reported on 01/14/2025), Disp: , Rfl: Allergies, social history and family history were reviewed and updated in [employer]. REVIEW OF SYSTEMS: 10 systems have been reviewed and positives are discussed in HPI PHYSICAL EXAM: Wt Readings from Last 3 Encounters: 01/14/25 114.3 kg (252 lb) 01/07/25 115.2 kg (254 lb) 12/31/24 117.9 kg (260 lb) Body mass index is 35.15 kg/m . Vitals: 01/14/25 1120 BP: 126/83 Pulse: 68 Weight: 114.3 kg (252 lb) Height: 180.3 cm (5' 11 ) General appearance: Well appearing male in no [...] are appropriate. Diabetic foot exam performed today: yes Foot Exam: Visual exam was abnormal toe deformities . Left:Pedal Pulses: 2+- normal Vibratory sensation diminished Filament test diminished Right:Pedal Pulses: 2+- normal Vibratory sensation diminished Filament test diminished LABS: Lab Results Component Value Date WTXLJJR5V 6.6 01/14/2025 VAWPGGY9M 7.5 (A) 10/17/2024 [id number] 7.4 (A) 06/26/2024 CMP: Lab Results Component Value Date SODIUM 139 12/31/2024 K 3.9 12/31/2024 CL 106 12/31/2024 CO2 23 12/31/2024 ANIONGAP 10 12/31/2024 BUN 28 (H) 12/31/2024 CREATININE 0.98 12/31/2024 GLU 118 (H) 12/31/2024 CALCIUM 9.4 12/31/2024 TOTALPROTEI 7.2 09/02/2024 ALBUMIN 3.9 09/02/2024 ALKPHOS 46 06/10/2024 AST 16 09/02/2024 ALT 17 09/02/2024 EGFR 85 12/31/2024 LIPID: Lab Results Component Value Date CHOL 137 (L) 09/02/2024 TRIG 166 (H) 09/02/2024 HDL 42 09/02/2024 LDLCALC 62 09/02/2024 Urine Microalbumin: Lab Results Component Value Date MICROALBUR <0.7 10/17/2024 URINECREAT 49.87 10/17/2024 ALBCREATRA NOT CALCULATED 10/17/2024 TSH Date Value Ref Range Status 11/16/2023 1.35 0.49 - 4.67 uIU/mL Final T4, free Date Value Ref Range Status 09/19/2023 0.92 0.61 - 1.60 ng/dL Final Vitamin B-12 Date Value Ref Range Status 09/02/2024 601 180 - 914 pg/mL Final C peptide Date Value Ref Range Status 12/11/2023 1.80 0.81 - 3.85 ng/mL Final Comment: NOTE Test Performed By: [facility] [address] [place] [address] [employer] Repairer: Brandon Zapata III, M.D. [facility] #[id number]^ ASSESSMENT: Tom Khan has poorly controlled type 2 diabetes complicated by DM neuropathy and CAD PLAN: 1. Type 2 diabetes mellitus with diabetic peripheral angiopathy without gangrene, with long-term current use of insulin ([facility] - POCT Hemoglobin A1c No medication changes. Patient was educated to make lifestyle changes including dietary restrictions, exercise and lifestyle modifications to attain significant weight loss Decrease sugar/carbohydrates in diet and increase physical activity Yearly dilated eye exam Will refer to phytopathologist LDL and BP at goal. A1c elevation is associated with significant risk [...] foot injury. Return to clinic: 3 months , 6 mo documented in this encounter [facility] 01-08-2025 Miscellaneous Notes Received new patient referral. Please call patient to schedule a new patient appointment for Gait disturbance IS THIS DUE TO AN ACCIDENT? IS THIS WORKER'S COMP? PLEASE VERIFY IF THIS IS WORKERS COMP AND DOCUMENT (We do not accept any new workers comp cases) WHAT INSURANCE? HAVE YOU EVER BEEN SEEN BY A NEUROLOGIST BEFORE? 1st attempt- Voice mail full, not able to leave message Received Referral from LEEANN CASTILLO Dx: R26.9 (ICD-10-CM) - Gait disturbance Referred to: Patient is scheduled for the following appointment: With Neurology (Jesse Desouza MD) 05/12/2025 at 10:30 AM New patient Gait disturbance [R26.9] Referirng provider: TERRY Monteiro Requesting Dr. Desouza in [place]. *Insurance verified: E-AETNA MEDICARE/AETNA MEDICARE PLAN (PPO)* NOT A WORKER'S COMP CASE New patient paperwork mailed 01/13/25 - MMV. documented in this encounter [facility] 01-08-2025 Telephone encounter Note Received new patient referral. Please call patient to schedule a new patient appointment for Gait disturbance IS THIS DUE TO AN ACCIDENT? IS THIS WORKER'S COMP? PLEASE VERIFY IF THIS IS WORKERS COMP AND DOCUMENT (We do not accept any new workers comp cases) WHAT INSURANCE? HAVE YOU EVER BEEN SEEN BY A NEUROLOGIST BEFORE? [facility] 01-08-2025 Telephone encounter Note 1st attempt- Voice mail full, not able to leave message Received Referral from LEEANN CASTILLO Dx: R26.9 (ICD-10-CM) - Gait disturbance Referred to: [facility] 01-08-2025 Telephone encounter Note Patient is scheduled for the following appointment: With Neurology (Jesse Desouza MD) 05/12/2025 at 10:30 AM New patient Gait disturbance [R26.9] Referirng provider: TERRY Monteiro Requesting Dr. Desouza in [place]. *Insurance verified: E-AETNA MEDICARE/AETNA MEDICARE PLAN (PPO)* NOT A WORKER'S COMP CASE New patient paperwork mailed 01/13/25 - MMV. [facility] 01-07-2025 History of Present illness Narrative Subjective Patient ID: Tom Khan is a 69 y.o. male. Chief Complaint Chief Complaint Patient presents with Follow-up F/u from ER for a fall. Said he thinks maybe it was from a medication he is taking. Has been having episodes of anxiousness so they upped his rispirdone and that when he started becoming off balance. Lowered it and his balance is better. He is now currently taking one risperidone in the AM and one PM. HPI HPI ER f/u Has had imbalance, gait disturbance, falls. Seems better with reduction of risperidone dose. Sees psychiatry Past Medical History Past Medical History: Diagnosis Date Acute [place] ([facility]) 10/15/2023 Angina pectoris Anxiety Arthritis osteoarthritis Autonomic neuropathy due to type 2 diabetes mellitus ([facility]) 06/01/2022 Back pain CAD, multiple vessel 08/30/2023 Cardiomegaly Cataract Cataract, nuclear sclerotic senile, right 08/14/2018 Added automatically from request for surgery [id number] CHF (congestive heart failure) ([facility]) Chronic diastolic CHF (congestive heart failure) ([facility]) 02/05/2023 Complaint of paresthesia 11/16/2022 Constipation 10/15/2023 Coronary arteriosclerosis 06/01/2022 Coronary artery disease Status post CABG COVID-19 Dental disease crowns Depression Deviated septum Diabetes mellitus ([facility]) 08/30/2023 Diabetes mellitus type 2, controlled ([facility]) Difficult intravenous access OSEI (dyspnea on exertion) Esophageal reflux 08/30/2023 Esophageal stricture Fatigue 06/28/2011 Fractures Gallstone Gallstones 04/03/2024 GERD (gastroesophageal reflux disease) H/O esophagogastroduodenoscopy dilatation Heart attack ([facility]) 10/06/2023 4 stints Hiatal hernia Hyperlipidemia Hypertension Hyponatremia Incontinence of bowel Incontinence of urine 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 Lower extremity weakness 09/20/2023 MCI (mild cognitive impairment) 02/25/2021 Mild cognitive impairment Mixed anxiety and depressive disorder 09/07/2017 Mixed hyperlipidemia 06/28/2011 Last Assessment & Plan: Assessment: no meds currently ,stable Moderate episode of recurrent major depressive disorder ([facility]) 12/25/2022 Obesity Obesity (BMI 30-39.9) 08/30/2023 Obesity, Class II, BMI 35-39.9 04/13/2020 Obsessive compulsive disorder Obsessive-compulsive disorder 11/07/2018 Obstructive sleep apnea syndrome 06/01/2022 Peripheral neuropathy Pneumonia PONV (postoperative nausea and vomiting) Primary hypertension 06/28/2011 Last Assessment & Plan: Assessment: on med,moniotred per PCP BP 143/74 pulse 64 Primary osteoarthritis of right knee 06/01/2022 Last Assessment & Plan: Assessment: will have surgery Pseudophakia 05/05/2011 Pulmonary vascular congestion Retinal detachment 06/01/2022 S/P total knee arthroplasty, 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/12/2020 Salmonella Sleep apnea cpap Spinal stenosis at L4-L5 level 10/15/2023 ST elevation myocardial infarction (STEMI) of inferior wall ([facility]) 10/15/2023 Type 2 diabetes mellitus with diabetic peripheral angiopathy without gangrene, with long-term current use of insulin ([facility]) 10/13/2019 Urinary retention Visual impairment glasses retinal detatchment Vitamin D deficiency Vitreous hemorrhage ([facility]) Vocal cord granuloma Past Surgical History Past Surgical History: Procedure Laterality Date BACK SURGERY Left Circumferential 09/21/2023 fusion CATARACT EXTRACTION, BILATERAL Bilateral COLONOSCOPY 2012 CORONARY ARTERY BYPASS GRAFT ESOPHAGOGASTRODUODENOSCOPY dilatation EYE SURGERY Bilateral LAMINECTOMY LUMBAR SINGLE LEVEL / L4/5 N/A 09/21/2023 Performed by Mynor Steen MD at [facility] POSTERIOR LAMINECTOMY FUSION LUMBAR SINGLE LEVEL / L4/5 N/A 09/21/2023 Performed by Mynor Steen MD at [facility] REPLACEMENT TOTAL KNEE Bilateral ROTATOR CUFF REPAIR SEPTOPLASTY Family History Family History Problem Relation Age of Onset Diabetes Mother Hypertension Mother Heart disease Father Hyperlipidemia Father Hypertension Father Inflammatory bowel disease Neg Hx Cirrhosis Neg Hx Colon cancer Neg Hx Social History Social History Socioeconomic History Marital [...] Social History Narrative Not on file Social Drivers of Health Financial Resource Strain: Low Risk (04/17/2023) Overall Financial Resource Strain (CARDIA) Difficulty of Paying Living Expenses: Not very hard Food Insecurity: No Food Insecurity (01/18/2025) Hunger Screening Food Insecurity - Worry: Never True Food Insecurity - Inability: Never True Transportation Needs: No Transportation Needs (04/17/2023) PRAPARE - Transportation Lack of Transportation (Medical): No Lack of Transportation (Non-Medical): No Physical Activity: Sufficiently Active (04/17/2023) Exercise Vital Sign Days of Exercise per Week: 4 days Minutes of Exercise per Session: 60 min Stress: Stress Concern Present (04/17/2023) [employer] [place] [employer] - Occupational Stress Questionnaire Feeling of Stress : Rather much Social Connections: Socially Integrated (04/17/2023) Social Connection and Isolation Panel [NHANES] Frequency of Communication with Friends and Family: More than three times a week Frequency of Social Gatherings with Friends and Family: More than three times a week Attends Jewish Services: More than 4 times per year [...] acetaminophen (TYLENOL EXTRA STRENGTH) 500 mg tablet ADMELOG SOLOSTAR U-100 INSULIN 100 unit/mL insulin pen Per scale up to 25 units 3 times daily with meals, max dose of 75 units daily 75 mL 3 aspirin 81 mg atorvastatin (LIPITOR) 40 mg tablet Take 1 tablet (40 mg total) by mouth in the morning. 90 tablet 3 busPIRone (BUSPAR) 10 mg tablet Take 2 tablets (20 mg total) by mouth in the morning and 2 tablets (20 mg total) before bedtime. carvediloL (COREG) 12.5 mg tablet Take 1 tablet (12.5 mg total) by mouth in the morning and 1 tablet (12.5 mg total) before bedtime. 180 tablet 1 cholecalciferol, vitamin D3, 5,000 units tablet Take 1 tablet (5,000 Units total) by mouth in the morning. 90 tablet 3 DULoxetine (CYMBALTA) 60 mg capsule Take 1 capsule (60 mg total) by mouth in the morning. JARDIANCE 25 mg tablet tablet TAKE 1 TABLET (25 MG TOTAL) BY MOUTH IN THE MORNING 90 tablet 3 losartan (COZAAR) 25 mg tablet Take 1 tablet (25 mg total) by mouth in the morning. melatonin (CIRCADIN) tablet Take 2 tablets (6 mg total) by mouth nightly. 1-2 tabs as needed nightly mirtazapine (REMERON) 15 mg tablet Take 1 tablet (15 mg total) by mouth once daily at bedtime. nitroglycerin (NITROSTAT) 0.4 MG SL tablet omega 7-exl-mob-fish oil (Fish OiL) 300-1,000 mg capsule Take by mouth. semaglutide (OZEMPIC) 2 mg/dose (8 mg/3 mL) pen injector Inject 2 mg under the skin every 7 days. 9 mL 3 spironolactone (ALDACTONE) 25 mg tablet TOUJEO MAX U-300 SOLOSTAR 300 unit/mL (3 mL) insulin pen Inject 50 Units under the skin in the morning. Up to 75 units daily. (Patient taking differently: Inject 42 Units under the skin in the morning. Up to 75 units daily.) 27 mL 3 furosemide (LASIX) 20 mg tablet Take 1 tablet (20 mg total) by mouth daily. 90 tablet 1 hyoscyamine (LEVSIN) 0.125 mg SL tablet Take 1 tablet (125 mcg total) by mouth every 4 (four) hours as needed for cramping. 30 tablet 0 potassium chloride (KLOR-CON SPRINKLE) 10 MEQ CR capsule Take 1 capsule (10 mEq total) by mouth as needed. Per Dr. Watts QUEtiapine (SEROquel) 100 mg tablet Take 2 tablets (200 mg total) by mouth nightly. Increase 50 mg until 100mg 7 days increase another 100mg until 200mg and stop. No current facility-administered medications for this visit. Review of Systems Review of Systems Musculoskeletal: Positive for gait problem. Objective Vitals BP 118/70 (BP Site: Left Arm, BP Postition: Sitting) Pulse 75 Temp 36.7 C (98.1 F) Ht 180.3 cm (5' 11 ) Wt 115.2 kg (254 lb) SpO2 97% BMI 35.43 kg/m Physical Exam Physical Exam Nursing note reviewed. Cardiovascular: Rate [...] tandem walk abnormal. Psychiatric: Mood and Affect: Affect is flat. Speech: Speech normal. Recent Pertinent Labs and Radiology Assessment/Plan 1. Gait disturbance - [facility] ([facility]) - [place], [place]; Future Psychiatry follow up also Retrieve previous neurospsych testing Skyler Valles Return for Next scheduled follow up. There are no discontinued medications. There are no Patient Instructions on file for this visit. TERRY Monteiro 02/01/25 0849 documented in this encounter [facility] 12-15-2024 Miscellaneous Notes called stating his phone went [employer] and he uses g7 on it. He now has a new phone and she was asking process of getting dexcom started again. I left her know the nohemy will need to be re installed on the the new phone and to just log in with his existing log in information. She verbalized understanding. documented in this encounter [facility] 12-15-2024 Telephone encounter Note called stating his phone went [employer] and he uses g7 on it. He now has a new phone and she was asking process of getting dexcom started again. I left her know the nohemy will need to be re installed on the the new phone and to just log in with his existing log in information. She verbalized understanding. [facility] 12-10-2024 Evaluation + Plan note Associated Problem(s): Urinary retention He will stop at the lab today for a PSA. He would like a call with the results. Assuming this is stable, he would like to continue to follow with us on an annual basis. We will see him back in 1 year with a PSA and PVR [facility] 12-10-2024 Miscellaneous Notes Associated Problem(s): Urinary retention He will stop at the lab today for a PSA. He would like a call with the results. Assuming this is stable, he would like to continue to follow with us on an annual basis. We will see him back in 1 year with a PSA and PVR documented in this encounter [facility] 12-10-2024 History of Present illness Narrative Images from the original note were not included. [address] [place] [id number] Patient: Tom Khan Date of : 1955 Encounter Date: 12/10/2024 History of Present Illness: The patient is a 69 y.o. male, an established patient, and is here for follow-up. He has a history of urinary retention after back surgery and saw Dr. Blankenship 02/06/2024. He is no longer taking tamsulosin. He feels he voids well without the medication. He has no current urologic concerns. Postvoid residual as measured by bladder scan is 34 cc Urinalysis today: Recent Labs 12/10/24 1554 EXTPOCURBS 3+ EXTPOCUKET Negative EXTPOCUPRO Negative EXTPOCUNIT Negative EXTPOCUBLD Negative EXTPOCUPH 5.5 Last BUN and creatinine: Lab Results Component Value Date BUN 27 10/03/2024 Lab Results Component Value Date CREATININE 1.04 10/03/2024 Last PSA: No results found for: PSA Lab Results Component Value Date PROSTATICSP 0.98 11/16/2023 Past Medical, Family, and Social History Update: The following portions of the patient's history were reviewed and updated as appropriate: allergies, current medications, past family history, past medical history, past social history, past surgical history and problem list. Past Medical History: Diagnosis Date Acute [place] ([facility]) 10/15/2023 Angina pectoris Anxiety Arthritis osteoarthritis Autonomic neuropathy due to type 2 diabetes mellitus ([facility]) 06/01/2022 Back pain CAD, multiple vessel 08/30/2023 Cardiomegaly Cataract Cataract, nuclear sclerotic senile, right 08/14/2018 Added automatically from request for surgery [id number] CHF (congestive heart failure) ([facility]) Chronic diastolic CHF (congestive heart failure) ([facility]) 02/05/2023 Complaint of paresthesia 11/16/2022 Constipation 10/15/2023 Coronary arteriosclerosis 06/01/2022 Coronary artery disease Status post CABG COVID-19 Dental disease crowns Depression Deviated septum Diabetes mellitus ([facility]) 08/30/2023 Diabetes mellitus type 2, controlled ([facility]) Difficult intravenous access OSEI (dyspnea on exertion) Esophageal reflux 08/30/2023 Esophageal stricture Fatigue 06/28/2011 Fractures Gallstone Gallstones 04/03/2024 GERD (gastroesophageal reflux disease) H/O esophagogastroduodenoscopy dilatation Heart attack ([facility]) 10/06/2023 4 stints Hiatal hernia Hyperlipidemia Hypertension Hyponatremia Incontinence of bowel Incontinence of urine 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 Lower extremity weakness 09/20/2023 MCI (mild cognitive impairment) 02/25/2021 Mild cognitive impairment Mixed anxiety and depressive disorder 09/07/2017 Mixed hyperlipidemia 06/28/2011 Last Assessment & Plan: Assessment: no meds currently ,stable Moderate episode of recurrent major depressive disorder ([facility]) 12/25/2022 Obesity Obesity (BMI 30-39.9) 08/30/2023 Obesity, Class II, BMI 35-39.9 04/13/2020 Obsessive compulsive disorder Obsessive-compulsive disorder 11/07/2018 Obstructive sleep apnea syndrome 06/01/2022 Peripheral neuropathy Pneumonia PONV (postoperative nausea and vomiting) Primary hypertension 06/28/2011 Last Assessment & Plan: Assessment: on med,moniotred per PCP BP 143/74 pulse 64 Primary osteoarthritis of right knee 06/01/2022 Last Assessment & Plan: Assessment: will have surgery Pseudophakia 05/05/2011 Pulmonary vascular congestion Retinal detachment 06/01/2022 S/P total knee arthroplasty, right 04/12/2020 Salmonella Sleep apnea cpap Spinal stenosis at L4-L5 level 10/15/2023 ST elevation myocardial infarction (STEMI) of inferior wall ([facility]) 10/15/2023 Type 2 diabetes mellitus with diabetic peripheral angiopathy without gangrene, with long-term current use of insulin ([facility]) 10/13/2019 Urinary retention Visual impairment glasses retinal detatchment Vitamin D deficiency Vitreous hemorrhage ([facility]) Vocal cord granuloma Past Surgical History: Procedure Laterality Date BACK SURGERY Left Circumferential 09/21/2023 fusion CATARACT EXTRACTION, BILATERAL Bilateral COLONOSCOPY 2012 CORONARY ARTERY BYPASS GRAFT ESOPHAGOGASTRODUODENOSCOPY dilatation EYE SURGERY Bilateral LAMINECTOMY LUMBAR SINGLE LEVEL / L4/5 N/A 09/21/2023 Performed by Mynor Steen MD at [facility] POSTERIOR LAMINECTOMY FUSION LUMBAR SINGLE LEVEL / L4/5 N/A 09/21/2023 Performed by Mynor Steen MD at [facility] REPLACEMENT TOTAL KNEE Bilateral ROTATOR CUFF REPAIR SEPTOPLASTY Family History Problem Relation Age of Onset Diabetes Mother Hypertension Mother Heart disease Father Hyperlipidemia Father Hypertension Father Inflammatory bowel disease Neg Hx Cirrhosis Neg Hx Colon cancer Neg Hx Current Outpatient Medications Medication Sig Dispense Refill acetaminophen (TYLENOL EXTRA STRENGTH) 500 mg tablet ADMELOG SOLOSTAR U-100 INSULIN 100 unit/mL insulin pen Per scale up to 25 units 3 times daily with meals, max dose of 75 units daily 75 mL 3 aspirin 81 mg Daily atorvastatin (LIPITOR) 40 mg tablet Take 1 tablet (40 mg total) by mouth in the morning. 90 tablet 3 busPIRone (BUSPAR) 10 mg tablet Take 2 tablets (20 mg total) by mouth in the morning and 2 tablets (20 mg total) before bedtime. carvediloL (COREG) 12.5 mg tablet Take 1 [...] by mouth in the morning. DULoxetine (CYMBALTA) 60 mg capsule Take 1 capsule (60 mg total) by mouth in the morning. furosemide (LASIX) 20 mg tablet Take 1 tablet (20 mg total) by mouth daily. 90 tablet 1 hyoscyamine (LEVSIN) 0.125 mg SL tablet Take 1 tablet (125 mcg total) by mouth every 4 (four) hours as needed for cramping. 30 tablet 0 JARDIANCE 25 mg tablet tablet TAKE 1 TABLET (25 MG TOTAL) BY MOUTH IN THE MORNING 90 tablet 3 losartan (COZAAR) 25 mg tablet Take 1 tablet (25 mg total) by mouth in the morning. melatonin (CIRCADIN) tablet Take 2 tablets (6 mg total) by mouth nightly as needed. 1-2 tabs as needed nightly mirtazapine (REMERON) 15 mg tablet Take 1 tablet (15 mg total) by mouth once daily at bedtime. nitroglycerin (NITROSTAT) 0.4 MG SL tablet omega 4-fgp-xpy-fish oil (Fish OiL) 300-1,000 mg capsule Take by mouth. potassium chloride (KLOR-CON SPRINKLE) 10 MEQ CR capsule Take 1 capsule (10 mEq total) by mouth in the morning. Per Dr. Watts . risperiDONE (RisperDAL) 1 mg tablet semaglutide (OZEMPIC) 2 mg/dose (8 mg/3 mL) pen injector Inject 2 mg under the skin every 7 days. 9 mL 3 spironolactone (ALDACTONE) 25 mg tablet Daily TOUJEO MAX U-300 SOLOSTAR 300 unit/mL (3 mL) insulin pen Inject 50 Units under the skin in the morning. Up to 75 units daily. 27 mL 3 traZODone (DESYREL) 100 mg tablet Take 1 tablet (100 mg total) by mouth nightly as needed. No current facility-administered medications for this visit. (All medications reviewed and updated by provider since last office visit or hospitalization) Allergies: Patient has no known allergies. Tobacco History: Social History Tobacco Use Smoking Status Never Smokeless Tobacco Never (If patient a smoker, smoking cessation counseling offered) Social History: Social History Substance and Sexual Activity Alcohol Use Not Currently Review of Systems: General: Negative for chills and fever. Cardiovascular: Negative for chest pain and shortness of breath. Gastrointestinal: Negative for constipation, diarrhea, nausea, and vomitting. Physical Exam: BP 125/80 Pulse 80 Ht 180.3 cm (5' 11 ) Wt 114.8 kg (253 lb) BMI 35.29 kg/m Constitutional: He appears well-developed. No distress. Pulmonary/Chest: Effort normal. No respiratory distress. Neurological: He is alert and oriented for age. Gait normal. Rectal: Prostate is smooth, soft, symmetric Nursing note and vitals reviewed. Assessment and Plan: Tom was seen today for follow-up and urinary retention. Diagnoses and all orders for this visit: Urinary retention - Measure post void residual - POCT Urinalysis Auto, W/O Microscopy - Prostatic specific antigen, diagnostic; Future - Prostatic specific antigen, diagnostic; Future Problem List Genitourinary Urinary retention - Primary Overview ====12/10/24==== Doing well off tamsulosin. PVR 34. JESSICA benign. Due for PSA ==== 02/06/2024 ==== history retention after back surgery. He has been on Flomax. Tamsulosin. Tolerating medication. Query whether not to come off of it. PVR is very acceptable. Diffuse like he is voiding well. Plan: May stop her start his tamsulosin. Would be reasonable to check PVR in about 3 months. Current Assessment & Plan He will stop at the lab today for a PSA. He would like a call with the results. Assuming this is stable, he would like to continue to follow with us on an annual basis. We will see him back in 1 year with a PSA and PVR Relevant Orders Measure post void residual (Completed) POCT Urinalysis Auto, W/O Microscopy (Completed) Prostatic specific antigen, diagnostic Prostatic specific antigen, diagnostic Follow-up: PSA today. Appointment with Dr. Blankenship in one year with a PSA/PVR [place] This note was created with the assistance of a speech recognition program. While intending to generate a timely document that accurately reflects the content of the visit, no guarantee can be provided that every grammatical or spelling mistake has been or will be identified or corrected. Thank you for your understanding. [place] 12/10/24 [id number] documented in this encounter [facility] 12-02-2024 History of Present illness Narrative Images from the original note were not included. Subjective Patient ID: Tom Khan is a 69 y.o. male who presents for DM Foot Care (PCP: Dr. Mini RUIZ 11/19/24, A1C: 7.2, BS: 196, SS: 11.5). HPI This is an established patient who returns to clinic for diabetic foot evaluation. Review of Systems Constitutional: Negative for activity change and appetite change. Respiratory: Negative for chest tightness and shortness of breath. Cardiovascular: Positive for leg swelling. Negative for chest pain. Musculoskeletal: Positive for arthralgias. Skin: Negative for color change and wound. Neurological: Positive for numbness. Negative for weakness. Psychiatric/Behavioral: Negative for agitation and behavioral problems. Hematological: Does not bruise/bleed easily. Endocrine: Negative for cold intolerance and heat intolerance. Allergic/Immunologic: Negative for immunocompromised state. Past medical History Past Medical History: Diagnosis Date CAD (coronary artery disease) ([facility]) Depression ([facility]) Diabetes ([facility]) TypeII HTN (hypertension) ([facility]) Medications Current Outpatient Medications: aspirin 81 MG EC tablet, Take 81 mg by mouth Daily, Disp: , Rfl: atorvastatin (Lipitor) 80 MG tablet, 80 mg, Disp: , Rfl: busPIRone HCl (BUSPAR PO), BuSpar, Disp: , Rfl: carvedilol (Coreg) 12.5 MG tablet, Take 12.5 mg by mouth in the morning and 12.5 mg in the evening., Disp: , Rfl: clopidogrel (Plavix) 75 MG tablet, Take 75 mg by mouth Daily, Disp: , Rfl: DULoxetine (Cymbalta) [address] capsule, Take 30 mg by mouth in the morning., Disp: , Rfl: furosemide (Lasix) 20 MG tablet, Take by mouth, Disp: , Rfl: Insulin Lispro 100 UNIT/ML solution, Inject under the skin 3 (three) times a day with meals., Disp: , Rfl: Jardiance 25 MG, Take 25 mg by mouth Daily, Disp: , Rfl: labetalol (Normodyne) 200 MG tablet, Take 1 tablet by mouth in the morning and 1 tablet before bedtime., Disp: , Rfl: losartan (Cozaar) 25 MG tablet, Take 25 mg by mouth in the morning., Disp: , Rfl: Melatonin 1 MG capsule, Melatonin, Disp: , Rfl: nitroglycerin (Nitrostat) 0.4 MG SL tablet, every 5 (five) minutes if needed, Disp: , Rfl: Ozempic, 2 MG/DOSE, 8 MG/3ML solution pen-injector, , Disp: , Rfl: risperiDONE (RisperDAL) 1 MG tablet, Take 1 mg by mouth in the morning and 1 mg before bedtime., Disp: , Rfl: semaglutide (Ozempic, 0.25 or 0.5 MG/DOSE,) 2 MG/1.5ML solution pen-injector, Ozempic, Disp: , Rfl: sildenafil (Viagra) 50 MG tablet, Take 50 mg by mouth Daily as needed., Disp: , Rfl: spironolactone (Aldactone) 25 MG tablet, Take by mouth Daily, Disp: , Rfl: Toujeo Max SoloStar 300 UNIT/ML injection, Inject 66 Units under the skin in the morning., Disp: , Rfl: traZODone (Desyrel) 50 MG tablet, traZODone HCl, Disp: , Rfl: Allergies Patient has no known allergies. Past Surgical History Past Surgical History: Procedure Laterality Date CATARACT EXTRACTION Bilateral CORONARY ANGIOPLASTY WITH STENT PLACEMENT 10/06/2023 CORONARY ARTERY BYPASS GRAFT CORONARY ARTERY BYPASS GRAFT KNEE ARTHROSCOPY W/ DEBRIDEMENT Bilateral LAMINECTOMY 09/05/2023 SEPTOPLASTY SHOULDER ARTHROSCOPY Left TOTAL KNEE ARTHROPLASTY Right 04/2020 TOTAL KNEE ARTHROPLASTY Left Family History Family History Problem Relation Name Age of Onset Diabetes Mother Stroke Mother Congenital heart disease Father Mental illness Other Hypertension Other Objective Physical Exam Constitutional: General: He is not in acute distress. Cardiovascular: Comments: DP pulse: 2/4 PT pulse: 2/4 Skin temperature is warm to warm Edema: +1 pitting bilaterally. Multiple telangiectasias and varicosities bilaterally. Pulmonary: Effort: Pulmonary effort is normal. No respiratory distress. Musculoskeletal: Cervical back: Neck supple. No rigidity. Comments: Pedal deformities: Pes planus morphology with multiple hammertoe contractures bilaterally. Hallux malleus bilaterally with mild erythema on the dorsum of the left hallux IPJ. Skin: Capillary Refill: Capillary refill takes 2 to 3 seconds. Comments: 7 toenails exhibit clinical mycosis with thickened appearance, yellow/brown discoloration, crumbly texture, subungual debris. All 10 toenails are elongated. Hyperkeratotic tissue: Left foot: None Right foot: None Skin is diffusely thin. Neurological: Mental Status: He is alert. Comments: Protective sensation intact at 3/10 pedal sites Vibratory sensation diminished at the 1st MTP bilaterally. Psychiatric: Mood and Affect: Mood normal. Behavior: Behavior normal. Assessment/Plan ICD-10-CM 1. Diabetic polyneuropathy associated with type 2 diabetes mellitus (CMS/HCC) E11.42 2. Dermatophytosis of nail B35.1 3. Dystrophic nail L60.3 Patient was examined and evaluated. Diabetic foot evaluation performed. Patient remains high-risk for pedal complications from diabetes due to his history of ulceration, infection, neuropathy and pedal deformities. 10 toenails were debrided in length and thickness today utilizing a nail nipper and electric bur profile grinder technician without incident. I have discussed the importance of daily foot examinations and tight blood sugar control. We will follow up in 3 months for at risk diabetic foot evaluation. He will call sooner with any issues or concerns. This note was created with the assistance of a speech recognition program. While intending to generate a timely document that accurately reflects the content of the visit, no guarantee can be provided that every grammatical or spelling mistake has been or will be identified or corrected. Thank you for your understanding. Mc Chatman DPM documented in this encounter [facility] 11-28-2024 History of Present illness Narrative Images from the original note were not included. HISTORY OF PRESENT ILLNESS: EST PT Tom Khan is an 69 y.o. @ male. (EST PT) - RECHECK (R) SHOULDER ; S/P CORTISONE INJ (R) SHOULDER @LAST VISIT 11/14; NOTES SOME RELIEF XRAY B/L SHOULDER EPIC 10/31/24 XRAY 07/13/22 FM MRI RT SHOULDER 09/27/22 FM DEPO INJECTION RT SHOULDER 11/14/24 HX PT @ FM !2YRS AGO HX SHOULDER SX (UNSURE WHICH SHOULDER) YRS AGO SYMPTOMS LESS SEVERE- PAIN TOP OF SHOULDER- C/O PAIN LIKE A TOOTH ACHE - GOOD ROM- NOTES SOME PAIN ABOVE SHOULDER LEVEL- SOME WEAKNESS- PT IS WONDERING IF PHYSICAL THERAPY WOULD HELP- +TYLENOL- CONSTANT ACHINESS- SOME SHARP STABBING PAIN WITH HOLDING HIS PHONE PT IS CURRENTLY IN PHYSICAL THERAPY FOR LT HIP AZALIA - 09/2022 - FALL ON (R) SIDE ALLERGIES: No Known Allergies HOME MEDICATIONS: Current Outpatient Medications Medication Instructions aspirin 81 mg, Oral, Daily atorvastatin (LIPITOR) 80 mg busPIRone HCl (BUSPAR PO) BuSpar carvedilol (COREG) 12.5 mg, Oral, 2 times daily clopidogrel (PLAVIX) 75 mg, Oral, Daily DULoxetine (CYMBALTA) 30 mg, Oral, Daily RT furosemide (Lasix) 20 MG tablet Oral Insulin Lispro 100 UNIT/ML solution Subcutaneous, 3 times daily with meals Jardiance 25 mg, Daily labetalol (Normodyne) 200 MG tablet 1 tablet, Oral, 2 times daily losartan (COZAAR) 25 mg, Oral, Daily RT Melatonin 1 MG capsule Melatonin nitroglycerin (Nitrostat) 0.4 MG SL tablet Every 5 min PRN Ozempic, 2 MG/DOSE, 8 MG/3ML solution pen-injector risperiDONE (RISPERDAL) 1 mg, Oral, 2 times daily semaglutide (Ozempic, 0.25 or 0.5 MG/DOSE,) 2 MG/1.5ML solution pen-injector Ozempic sildenafil (VIAGRA) 50 mg, Oral, Daily PRN spironolactone (Aldactone) 25 MG tablet Oral, Daily Toujeo Max SoloStar 66 Units, Subcutaneous, Daily RT traZODone (Desyrel) 50 MG tablet traZODone HCl PHYSICAL EXAM: Shoulder Musculoskeletal Exam Inspection Right Right shoulder inspection is normal. Ecchymosis: none Peripheral edema: none Atrophy: none Masses: none Palpation Right Right shoulder palpation is normal. Crepitus: no crepitus Increased warmth: none Tenderness: none Range of Motion Right Right shoulder range of motion is normal. Active ROM: normal and pain. Passive ROM: normal and pain. Passive ROM comment: on end rom. Active forward elevation: 160. Passive forward elevation: 170. Shoulder active abduction: 150. Passive abduction: 170. Active external rotation at side: 70. Passive external rotation at side: 80. Internal rotation: L5. Strength Right External rotation: 5/5. External rotation is affected by pain. Internal rotation: 5/5. Abduction: 4-/5. Abduction is affected by pain. Biceps: 5/5. Triceps: 5/5. Neurovascular Right Radial pulse: normal and 2+ Capillary refill: <3 sec Axillary nerve sensory distribution: normal Scapula Right Right shoulder scapula is normal. Position: normal Winging: none Special Tests Right Rotator Cuff Signs Neer's test: negative Blood test: negative Biceps/norma Signs Speed's test: negative AC Joint Signs Active horizontal adduction pain: negative General Constitutional: appears stated age Labored breathing: no Neurological: alert and oriented x3 Vitals: There is no height or weight on file to calculate BMI. Tobacco Use: Unknown (11/28/2024) Patient History Smoking Tobacco Use: Never Smokeless Tobacco Use: Unknown Passive Exposure: Not on file Alcohol Use: Not At Risk (11/22/2023) AUDIT-C Frequency of Alcohol Consumption: Never Average Number of Drinks: 1 or 2 Frequency of Binge Drinking: Never IMAGING: Procedures No orders of the defined types were placed in this encounter. ASSESSMENT: ICD-10-CM 1. Acute pain of right shoulder M25.511 2. Rotator cuff tear arthropathy of right shoulder M75.101 M12.811 Assessment & Plan 1. Follow-up of right shoulder pain. He notes improvement in pain with a subacromial injection. His rotator cuff arthropathy was discussed. He was previously seen by Dr. Hernandez a few years ago and elected not to have surgery, opting for conservative measures and injections instead. He has an appointment with Dr. Farmer in mid-December 2024. His symptoms and activity modifications were discussed. He would like to use his shoulder as normal. The potential for a flareup of shoulder pain with aggressive activity, such as wood splitting, was discussed. 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 Byrnes to assess his shoulder's long-term condition. Both the risks and benefits of surgical intervention were discussed, with concerns primarily about his history of falls and the potential for shoulder joint disruption post-surgery if there is an incidental fall due to his neuropathy. He expressed gratitude, noting that his left hip is also doing better. PROCEDURE The patient received a subacromial injection in the right shoulder, which has significantly improved his pain. Questions answered in laymen terms at the bedside. The diagnosis, home exercise plan and any ongoing restrictions/ recommendations reviewed. If unable to be reached in office, I recommend evaluation at nearest Emergency Room if any symptoms worsened or new symptoms develop for requiring urgent evaluation. documented in this encounter [facility] 11-19-2024 History of Present illness Narrative Subjective Patient ID: Tom Khan is a 69 y.o. male. Chief Complaint Chief Complaint Patient presents with Follow-up BP was high this morning ( after having coffee) , having a lot of anxiety. Stiffness in armendariz and right shoulder pain. HPI HPI BP high at community check. Normal here x 3 manual checks, reassured DM per endo Seeing orthopedics To see GI this afternoon Weight back down, not taking lasix daily Wt Readings from Last 3 Encounters: 11/19/24 114.8 kg (253 lb) 11/19/24 116.6 kg (257 lb) 11/06/24 121.6 kg (268 lb) Past Medical History Past Medical History: Diagnosis Date Acute OH ([facility] 10/15/2023 Angina pectoris ([facility] Anxiety Arthritis osteoarthritis Autonomic neuropathy due to type 2 diabetes mellitus ([facility]) 06/01/2022 Back pain CAD, multiple vessel 08/30/2023 Cardiomegaly Cataract Cataract, nuclear sclerotic senile, right 08/14/2018 Added automatically from request for surgery [id number] CHF (congestive heart failure) ([facility]) Chronic diastolic CHF (congestive heart failure) ([facility]) 02/05/2023 Complaint of paresthesia 11/16/2022 Constipation 10/15/2023 Coronary arteriosclerosis 06/01/2022 Coronary artery disease Status post CABG COVID-19 Dental disease crowns Depression Deviated septum Diabetes mellitus ([facility]) 08/30/2023 Diabetes mellitus type 2, controlled ([facility]) Difficult intravenous access OSEI (dyspnea on exertion) Esophageal reflux 08/30/2023 Esophageal stricture Fatigue 06/28/2011 Fractures Gallstone Gallstones 04/03/2024 GERD (gastroesophageal reflux disease) H/O esophagogastroduodenoscopy dilatation Heart attack ([facility]) 10/06/2023 4 stints Hiatal hernia Hyperlipidemia Hypertension Hyponatremia Incontinence of bowel Incontinence of urine 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 Lower extremity weakness 09/20/2023 MCI (mild cognitive impairment) 02/25/2021 Mild cognitive impairment Mixed anxiety and depressive disorder 09/07/2017 Mixed hyperlipidemia 06/28/2011 Last Assessment & Plan: Assessment: no meds currently ,stable Moderate episode of recurrent major depressive disorder ([facility]) 12/25/2022 Obesity Obesity (BMI 30-39.9) 08/30/2023 Obesity, Class II, BMI 35-39.9 04/13/2020 Obsessive compulsive disorder Obsessive-compulsive disorder 11/07/2018 Obstructive sleep apnea syndrome 06/01/2022 Peripheral neuropathy Pneumonia PONV (postoperative nausea and vomiting) Primary hypertension 06/28/2011 Last Assessment & Plan: Assessment: on med,moniotred per PCP BP 143/74 pulse 64 Primary osteoarthritis of right knee 06/01/2022 Last Assessment & Plan: Assessment: will have surgery Pseudophakia 05/05/2011 Pulmonary vascular congestion Retinal detachment 06/01/2022 S/P total knee arthroplasty, right 04/12/2020 Salmonella Sleep apnea cpap Spinal stenosis at L4-L5 level 10/15/2023 ST elevation myocardial infarction (STEMI) of inferior wall ([facility]) 10/15/2023 Type 2 diabetes mellitus with diabetic peripheral angiopathy without gangrene, with long-term current use of insulin ([facility]) 10/13/2019 Urinary retention Visual impairment glasses retinal detatchment Vitamin D deficiency Vitreous hemorrhage ([facility]) Vocal cord granuloma Past Surgical History Past Surgical History: Procedure Laterality Date BACK SURGERY Left Circumferential 09/21/2023 fusion CATARACT EXTRACTION, BILATERAL Bilateral COLONOSCOPY 2012 CORONARY ARTERY BYPASS GRAFT ESOPHAGOGASTRODUODENOSCOPY dilatation EYE SURGERY Bilateral LAMINECTOMY LUMBAR SINGLE LEVEL / L4/5 N/A 09/21/2023 Performed by Mynor Steen MD at [facility] LAMINECTOMY FUSION LUMBAR SINGLE LEVEL / L4/5 N/A 09/21/2023 Performed by Mynor Steen MD at [facility] TOTAL KNEE Bilateral ROTATOR CUFF REPAIR SEPTOPLASTY Family History Family History Problem Relation Age of Onset Diabetes Mother Hypertension Mother Heart disease Father Hyperlipidemia Father Hypertension Father Inflammatory bowel disease Neg Hx Cirrhosis Neg Hx Colon cancer Neg Hx Social History Social History Socioeconomic History Marital [...] Social History Narrative Not on file Social Drivers of Health Financial Resource Strain: Low Risk (04/17/2023) Overall Financial Resource Strain (CARDIA) Difficulty of Paying Living Expenses: Not very hard Food Insecurity: No Food Insecurity (11/19/2024) Hunger Screening Food Insecurity - Worry: Never True Food Insecurity - Inability: Never True Transportation Needs: No Transportation Needs (04/17/2023) PRAPARE - Transportation Lack of Transportation (Medical): No Lack of Transportation (Non-Medical): No Physical Activity: Sufficiently Active (04/17/2023) Exercise Vital Sign Days of Exercise per Week: 4 days Minutes of Exercise per Session: 60 min Stress: Stress Concern Present (04/17/2023) [employer] [place] [employer] - Occupational Stress Questionnaire Feeling of Stress : Rather much Social Connections: Socially Integrated (04/17/2023) Social Connection and Isolation Panel [NHANES] Frequency of Communication with Friends and Family: More than three times a week Frequency of Social Gatherings with Friends and Family: More than three times a week Attends Jewish Services: More than 4 times per year [...] acetaminophen (TYLENOL EXTRA STRENGTH) 500 mg tablet ADMELOG SOLOSTAR U-100 INSULIN 100 unit/mL insulin pen Per scale up to 25 units 3 times daily with meals, max dose of 75 units daily 75 mL 3 aspirin 81 mg Daily atorvastatin (LIPITOR) 40 mg tablet Take 1 tablet (40 mg total) by mouth in the morning. 90 tablet 3 busPIRone (BUSPAR) 10 mg tablet Take 2 tablets (20 mg total) by mouth in the morning and 2 tablets (20 mg total) before bedtime. carvediloL (COREG) 12.5 mg tablet Take 1 [...] by mouth in the morning. DULoxetine (CYMBALTA) 60 mg capsule Take 1 capsule (60 mg total) by mouth in the morning. furosemide (LASIX) 20 mg tablet Take 1 tablet (20 mg total) by mouth daily. 90 tablet 1 hyoscyamine (LEVSIN) 0.125 mg SL tablet Take 1 tablet (125 mcg total) by mouth every 4 (four) hours as needed for cramping. 30 tablet 0 JARDIANCE 25 mg tablet tablet TAKE 1 TABLET (25 MG TOTAL) BY MOUTH IN THE MORNING 90 tablet 3 losartan (COZAAR) 25 mg tablet Take 1 tablet (25 mg total) by mouth in the morning. melatonin (CIRCADIN) tablet Take 2 tablets (6 mg total) by mouth nightly as needed. 1-2 tabs as needed nightly mirtazapine (REMERON) 15 mg tablet Take 1 tablet (15 mg total) by mouth once daily at bedtime. nitroglycerin (NITROSTAT) 0.4 MG SL tablet omega [id number]-fish oil (Fish OiL) 300-1,000 mg capsule Take by mouth. potassium chloride (KLOR-CON SPRINKLE) 10 MEQ CR capsule Take 1 capsule (10 mEq total) by mouth in the morning. Per Dr. Watts . semaglutide (OZEMPIC) 2 mg/dose (8 mg/3 mL) pen injector Inject 2 mg under the skin every 7 days. 9 mL 3 spironolactone (ALDACTONE) 25 mg tablet Daily TOUJEO MAX U-300 SOLOSTAR 300 unit/mL (3 mL) insulin pen Inject 50 Units under the skin in the morning. Up to 75 units daily. 27 mL 3 traZODone (DESYREL) 100 mg tablet Take 1 tablet (100 mg total) by mouth nightly as needed. risperiDONE (RisperDAL) 1 mg tablet TAKE 1 TABLET BY MOUTH TWICE A DAY FOR PYSCHOSIS (Patient not taking: Reported on 11/19/2024) No current facility-administered medications for this visit. Review of Systems Review of Systems Psychiatric/Behavioral: The patient is nervous/anxious. Objective Vitals BP 120/70 (BP Site: Left Arm, BP Postition: Sitting) Pulse 75 Temp 36.3 C (97.4 F) Ht 180.3 cm (5' 11 ) Wt 116.6 kg (257 lb) SpO2 98% BMI 35.84 kg/m Physical Exam Physical Exam Vitals and nursing note reviewed. Cardiovascular: Rate and Rhythm: Normal [...] Attention normal. Mood and Affect: Mood is anxious. Speech: Speech normal. Behavior: Behavior normal. Behavior is cooperative. Thought Content: Thought content normal. Cognition and Memory: Cognition normal. Judgment: Judgment normal. Recent Pertinent Labs and Radiology Assessment/Plan 1. Primary hypertension 2. Type 2 diabetes mellitus with diabetic peripheral angiopathy without gangrene, with long-term current use of insulin ([facility]) 3. Chronic diastolic CHF (congestive heart failure) ([facility]) 4. CAD, multiple vessel Return in about 4 months (around 03/21/2025) for Recheck. There are no discontinued medications. There are no Patient Instructions on file for this visit. TERRY Monteiro 12/02/24 [id number] documented in this encounter [facility] 11-14-2024 Miscellaneous Notes Patient's called and she is concerned with low blood sugars. It was 53 last night and she gave him glucose tabs. Dexcom download is attached in media. Please advise. Toujeo 50 units HS Humalog scale before meals (80-100: 8u, 101-150= 16 u, 151-200= 18 u, 201-250= 20, 250-300= 22 u, over 300= 24 units) Jardiance 25 mg daily Ozempic 2 mg weekly Decrease Toujeo to 48 units informed. documented in this encounter [facility] 11-14-2024 Telephone encounter Note Patient's called and she is concerned with low blood sugars. It was 53 last night and she gave him glucose tabs. Dexcom download is attached in media. Please advise. Toujeo 50 units HS Humalog scale before meals (80-100: 8u, 101-150= 16 u, 151-200= 18 u, 201-250= 20, 250-300= 22 u, over 300= 24 units) Jardiance 25 mg daily Ozempic 2 mg weekly [facility] 11-14-2024 Telephone encounter Note Decrease Toujeo to 48 units [facility] 11-14-2024 Telephone encounter Note informed. [facility] 11-06-2024 History of Present illness Narrative OUTPATIENT NUTRITION CONSULTATION- ADULT Date: 11/06/24 Time in: 10:30 Time out: 11:30 Patient Tom Khan Age () 69 y.o. (1955) Sex male Accompanied by alone Reason for Visit: Pt wants to learn more about CHO counting Assessment: Height/Weight: Today's BMI Body mass index is 37.38 kg/m . BMI Category Obese class 2 (35.00- 39.99) Height Height: 180.3 cm (5' 11 ) Weight Wt Readings from Last 3 Encounters: 11/06/24 121.6 kg (268 lb) 10/22/24 121.6 kg (268 lb) 10/17/24 119.3 kg (263 lb 1.6 oz) Flatgap Body Weight Flatgap body weight: 75.3 kg (166 lb 0.1 oz) Adjusted ideal body weight: 93.8 kg (206 lb 12.9 oz) Lab Results: POCT A1c Lab Results Component Value Date [id number] 7.5 (A) 10/17/2024 A1c Lab Results Component Value Date HGBA1C 9.6 (H) 06/26/2022 HGBA1C 6.3 (H) 09/14/2015 C-Peptide C peptide Date/Time Value Ref Range Status 12/11/2023 02:40 PM 1.80 0.81 - 3.85 ng/mL Final Comment: NOTE Test Performed By: [facility] [address] [place] [address] [employer] Repairer: Verenice Painter III #[id number]^ Kidney Alb/creat ratio Date/Time Value Ref Range Status 10/17/2024 12:41 PM NOT CALCULATED 0.0 - 30.0 mg/g creat Final Comment: Result for Albumin/Creatinine Ratio cannot be reliably calculated because urine albumin and or urine creatinine is below the detection limit of the assay. Lab Results Component Value Date GLU 142 (H) 10/03/2024 K 4.2 10/03/2024 BUN 27 10/03/2024 CREATININE 1.04 10/03/2024 Lipid Panel Lab Results Component Value Date CHOL 137 (L) 09/02/2024 Lab Results Component Value Date HDL 42 09/02/2024 Lab Results Component Value Date LDLCALC 62 09/02/2024 Lab Results Component Value Date TRIG 166 (H) 09/02/2024 No results found for: CHOLHDL Hgb Hemoglobin Date/Time Value Ref Range Status 09/02/2024 09:12 AM 13.3 13.0 - 17.0 g/dL Final Psychosocial / Economic Comments: Pt reports he consumes 3 meals per day plus between meal snacks. He does not really count CHO not sure of how many. He is interested in learning how to plan his menus better Nutrition/Diet Counseling: Prior Nutrition Counseling Prior nutrition counseling was provided with dietitian. 12/11/23 Estimated Energy Needs 1800 kcals daily Diet History Revealed Energy Intake: Excessive Total Fat Intake: Excessive Sodium Intake: Inconsistent Fiber Intake: Inconsistent Carbohydrate Intake: Excessive Protein Intake: Excessive Food Recall Breakfast Time:: 0800 Breakfast Meal:: 2 eggs, 2 toast, sausage orange Lunch Time:: 1200 Lunch Meal:: sand,meat or fast food taco heredia Dinner Time:: 1800 Dinner Meal:: casserole fruit Snack Time:: 1000 Snack:: fruit Snack Time:: 1300 Snack:: milk crackers What beverages do you consume and approxiate amount?: water Diagnosis: Excessive energy intake Related to Uncertainty how to apply nutrition information As evidenced by Estimated energy intake from diet more than estimated energy needs Intervention: Nutrition Education: Patient was instructed on carbohydrate counting, healthy food selections, weight reduction, sources of fat, and sources of fiber, label reading, and menu planning Carbohydrate distribution provided to patient (if applicable): Breakfast Snack Lunch Snack Dinner Snack Carbohydrate 75 75 15 75 15 Total Kcal Recommended: 1800 (weight loss) Monitoring & Evaluation: Goals Eat 3 meals per day, Use resources discussed/given to count carbs, Target 5 servings of fruits/vegetables per day, Avoid sugar sweetened beverages, Exercise for 150 minutes per week, Monitors portions, and Label reading Follow-Up Plan Patient plans to call R.D. to schedule. Department phone number provided for questions after session. Apolinar Mckenzie RD., LD. [facility] documented in this encounter [facility] 10-31-2024 History of Present illness Narrative Associated Order(s): M Inj/Asp: L acromioclavicular Post-Procedure Diagnose(s): Arthritis of left shoulder region; Arthritis of left acromioclavicular joint Images from the original note were not included. HISTORY OF PRESENT ILLNESS: EST PT Tom Khan is an 69 y.o. @ male. EST PT RECHECK RT KNEE- DOING MUCH S/P RADHA HOSE - WEARS OCCASIONALLY XRAY RT KNEE EPIC 09/12/24 GIVEN PREDNISONE 09/12/24; ONLY WAS GOING TO TAKE IF NEEDED (PT DID NOT TAKE) HX RT TKA PER DR SOTO 04/12/20 PREDNISONE GIVEN 09/12/24 MINIMAL DISCOMFORT- PAIN ANTERIOR/MEDIAL KNEE- DENIES SWELLING- DENIES INSTABILITY- +STIFFNESS WITH PROLONG SITTING - +TYLENOL AZALIA: PT FELL ON KNEE AT HOME; TRIPPED OVER A SHEET ~1MO AGO *LT HIP* EST PT RECHECK LT HIP - NOTES GOOD IMPROVEMENT XRAY LT HIP EPIC 09/26/24 DENIES GROIN PAIN TODAY- NOTES SOME JOINT PAIN - DENIES STIFFNESS- DIFFICULTY GOING FROM SITTING TO STANDING *RT SHOULDER EST PT WITH FLARE UP - NO NEW INJURY- HX OF A FALL A COUPLE YRS AGO- NO RECENT TX XRAY B/L SHOULDER TODAY EPIC 10/31/24 XRAY 07/13/22 FM MRI 09/27/22 FM PT @ FM HX SHOULDER SX (UNSURE WHICH SHOULDER) YRS AGO NOTES PAIN CAN BE GLOBAL- INCREASE PAIN WITH RAISING ABOVE SHOULDER LEVEL- +WEAKNESS- *LT SHOULDER* EST PT WITH LT SHOULDER PAIN XRAY B/L SHOULDER TODAY EPIC 10/31/24 PAIN CAN BE GLOBAL- PAINFUL/LIMITED ROM ALLERGIES: No Known Allergies HOME MEDICATIONS: Current Outpatient Medications Medication Instructions aspirin 81 mg, Oral, Daily atorvastatin (LIPITOR) 80 mg busPIRone HCl (BUSPAR PO) BuSpar carvedilol (COREG) 12.5 mg, Oral, 2 times daily clopidogrel (PLAVIX) 75 mg, Oral, Daily DULoxetine (CYMBALTA) 30 mg, Oral, Daily RT furosemide (Lasix) 20 MG tablet Oral Insulin Lispro 100 UNIT/ML solution Subcutaneous, 3 times daily with meals Jardiance 25 mg, Daily labetalol (Normodyne) 200 MG tablet 1 tablet, Oral, 2 times daily losartan (COZAAR) 25 mg, Oral, Daily RT Melatonin 1 MG capsule Melatonin nitroglycerin (Nitrostat) 0.4 MG SL tablet Every 5 min PRN Ozempic, 2 MG/DOSE, 8 MG/3ML solution pen-injector risperiDONE (RISPERDAL) 1 mg, Oral, 2 times daily semaglutide (Ozempic, 0.25 or 0.5 MG/DOSE,) 2 MG/1.5ML solution pen-injector Ozempic sildenafil (VIAGRA) 50 mg, Oral, Daily PRN spironolactone (Aldactone) 25 MG tablet Oral, Daily Toujeo Max SoloStar 66 Units, Subcutaneous, Daily RT traZODone (Desyrel) 50 MG tablet traZODone HCl PHYSICAL EXAM: Shoulder Musculoskeletal Exam Inspection Right Right shoulder inspection is normal. Ecchymosis: none Peripheral edema: none Atrophy: none Deformity: AC joint prominence Masses: none Left Left shoulder inspection is normal. Ecchymosis: none Peripheral edema: none Atrophy: none Deformity: AC joint prominence Masses: none Prior incision: superior Incision: well-healed Palpation Right Crepitus: no crepitus Increased warmth: none Tenderness: present Anterior shoulder: mild AC joint: mild Sternoclavicular joint: none Rotator cuff: mild Greater tuberosity: mild Trapezius: none Medial scapula: none Superior pole of scapula: none Lateral arm: mild Elbow: none Left Crepitus: no crepitus Increased warmth: none Tenderness: present Anterior shoulder: mild Posterior shoulder: mild AC joint: moderate Sternoclavicular joint: none Rotator cuff: mild Greater tuberosity: mild Trapezius: none Medial scapula: none Superior pole of scapula: none Inferior pole of scapula: none Bicipital groove: none Proximal biceps: none Distal biceps: none Lateral arm: mild Elbow: none Range of Motion Right Right shoulder range of motion is normal. Active ROM: normal and pain. Passive ROM: normal and pain. Right shoulder active abduction: + pain passing 90 degrees. Internal rotation: L5. Left Left shoulder range of motion is normal. Active ROM: normal and pain. Passive ROM: normal and pain. Internal rotation: L5. Strength Right External rotation: 4/5. External rotation is affected by pain. Internal rotation: 5/5. Abduction: 4/5. Abduction is affected by pain. Biceps: 5/5. Triceps: 5/5. Left External rotation: 4/5. Internal rotation: 5/5. Abduction: 4-/5. Abduction is affected by pain. Biceps: 5/5. Triceps: 5/5. Neurovascular Right Radial pulse: normal and 2+ Capillary refill: <3 sec Axillary nerve sensory distribution: normal Left Radial pulse: normal and 2+ Capillary refill: <3 sec Axillary nerve sensory distribution: normal Scapula Right Right shoulder scapula is normal. Position: normal Winging: none Left Left shoulder scapula is normal. Position: normal Winging: none Special Tests Right Rotator Cuff Signs Neer's test: positive Blood test: positive Painful arc test: positive Biceps/norma Signs Speed's test: negative AC Joint Signs Single finger test: positive Left Rotator Cuff Signs Neer's test: positive Blood test: positive Painful arc test: positive Biceps/norma Signs Speed's test: negative AC Joint Signs Active horizontal adduction pain: positive Single finger test: positive General Constitutional: appears stated age Neurological: alert and oriented x3 Vitals: There is no height or weight on file to calculate BMI. Tobacco Use: Unknown (10/31/2024) Patient History Smoking Tobacco Use: Never Smokeless Tobacco Use: Unknown Passive Exposure: Not on file Alcohol Use: Not At Risk (11/22/2023) AUDIT-C Frequency of Alcohol Consumption: Never Average Number of Drinks: 1 or 2 Frequency of Binge Drinking: Never IMAGING: M Inj/Asp: L acromioclavicular on 10/31/2024 10:56 AM Indications: pain Details: 21 G needle, anterolateral approach Medications: 0.5 mL bupivacaine PF 0.5 %; 20 mg methylPREDNISolone acetate 40 MG/ML Outcome: tolerated well, no immediate complications -Discussed risks and benfits of AC Joint injection. Patient requesting injection. Point of maximal tenderness located on palpation over AC JOINT. Skin Cleansed with alcohol swab. Utilizing aseptic technique patient given injected into the AC joint without complication. Patient tolerated this well. Post injection care instructions discussed. Procedure, treatment alternatives, risks and benefits explained, specific risks discussed. Consent was given by the patient. Patient was prepped and draped in the usual sterile fashion. Orders Placed This Encounter Procedures M Inj/Asp: L acromioclavicular This order was created via procedure documentation XR shoulder 2+ views right Order Specific Question: Reason for exam: Answer: PAIN XR shoulder 2+ views left Order Specific Question: Reason for exam: Answer: PAIN ASSESSMENT: ICD-10-CM 1. Acute pain of right shoulder M25.511 XR shoulder 2+ views right 2. Acute pain of left shoulder M25.512 XR shoulder 2+ views left 3. Arthritis of left shoulder region M19.012 M Inj/Asp: L acromioclavicular 4. Arthritis of left acromioclavicular joint M19.012 M Inj/Asp: L acromioclavicular 5. Arthritis of right acromioclavicular joint M19.011 Assessment & Plan 1. Bilateral shoulder pain, left greater than right. The left shoulder exhibits arthritic changes, particularly at the AC joint. His pain localizes to the AC joint on palpation. He had a remote rotator cuff surgery that appears to be open with scar above. Both surgical and nonsurgical treatment options were discussed. A potential injection in the right shoulder will be considered based on the relief experienced from the left shoulder injection. He was thankful with x-rays discussed. He consented to a cortisone injection in the left shoulder today. He will continue to practice a diabetic diet and participate in pool exercises at home. Questions answered in laymen terms at the bedside. The diagnosis, home exercise plan and any ongoing restrictions/ recommendations reviewed. If unable to be reached in office, I recommend evaluation at nearest Emergency Room if any symptoms worsened or new symptoms develop for requiring urgent evaluation. documented in this encounter [facility] 10-22-2024 History of Present illness Narrative Images from the original note were not included. [facility] New Patient Visit Chief Complaint Patient presents with Follow-up Abdominal Pain He reports left sided abdominal pain. He states he has a terrible amount of gas. He has a bowel movement every 2 days. He does feel like he empties. HISTORY OF PRESENT ILLNESS: Tom Khan is a 69 y.o. male who has a past medical history of Acute [place] (CMS-HCC) (10/15/2023), Angina pectoris ([facility] Anxiety, Arthritis, Autonomic neuropathy due to type 2 diabetes mellitus ([facility]) (06/01/2022), Back pain, CAD, multiple vessel (08/30/2023), Cardiomegaly, Cataract, Cataract, nuclear sclerotic senile, right (08/14/2018), CHF (congestive heart failure) ([facility]), Chronic diastolic CHF (congestive heart failure) ([facility]) (02/05/2023), Complaint of paresthesia (11/16/2022), Constipation (10/15/2023), Coronary arteriosclerosis (06/01/2022), Coronary artery disease, COVID-19, Dental disease, Depression, Deviated septum, Diabetes mellitus ([facility]) (08/30/2023), Diabetes mellitus type 2, controlled ([facility]), Difficult intravenous access, OSEI (dyspnea on exertion), Esophageal reflux (08/30/2023), Esophageal stricture, Fatigue (06/28/2011), Fractures, Gallstone, Gallstones (04/03/2024), GERD (gastroesophageal reflux disease), H/O esophagogastroduodenoscopy, Heart attack ([facility]) (10/06/2023), Hiatal hernia, Hyperlipidemia, Hypertension, Hyponatremia, Incontinence of bowel, Incontinence of urine, 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, Lower extremity weakness (09/20/2023), MCI (mild cognitive impairment) (02/25/2021), Mild cognitive impairment, Mixed anxiety and depressive disorder (09/07/2017), Mixed hyperlipidemia (06/28/2011), Moderate episode of recurrent major depressive disorder ([facility]) (12/25/2022), Obesity, Obesity (BMI 30-39.9) (08/30/2023), Obesity, Class II, BMI 35-39.9 (04/13/2020), Obsessive compulsive disorder, Obsessive-compulsive disorder (11/07/2018), Obstructive sleep apnea syndrome (06/01/2022), Peripheral neuropathy, Pneumonia, PONV (postoperative nausea and vomiting), Primary hypertension (06/28/2011), Primary osteoarthritis of right knee (06/01/2022), Pseudophakia (05/05/2011), Pulmonary vascular congestion, Retinal detachment (06/01/2022), S/P total knee arthroplasty, right (04/12/2020), Salmonella, Sleep apnea, Spinal stenosis at L4-L5 level (10/15/2023), ST elevation myocardial infarction (STEMI) of inferior wall ([facility]) (10/15/2023), Type 2 diabetes mellitus with diabetic peripheral angiopathy without gangrene, with long-term current use of insulin ([facility]) (10/13/2019), Urinary retention, Visual impairment, Vitamin D deficiency, Vitreous hemorrhage ([facility]), and Vocal cord granuloma. Presenting for follow-up visit. Patient reports abdominal pain and bowel movements have improved. Passing flatus multiple times a day. Bowel movements daily Sibley 5 with complete emptying. No straining. Infrequent episodes of left abdominal pain. The following portions of the patient's history were reviewed and updated as appropriate: Patient Care Team: Leeann Castillo APRN-QI as PCP - General (Internal Medicine) Alea Mckenzie MD as Referring Physician (Endocrinology, Diabetes & Metabolism) Mely Call RN as Hardboard Factory Worker He has a past medical history of Acute [place] ([facility]) (10/15/2023), Angina pectoris ([facility]), Anxiety, Arthritis, Autonomic neuropathy due to type 2 diabetes mellitus ([facility]) (06/01/2022), Back pain, CAD, multiple vessel (08/30/2023), Cardiomegaly, Cataract, Cataract, nuclear sclerotic senile, right (08/14/2018), CHF (congestive heart failure) ([facility]), Chronic diastolic CHF (congestive heart failure) ([facility]) (02/05/2023), Complaint of paresthesia (11/16/2022), Constipation (10/15/2023), Coronary arteriosclerosis (06/01/2022), Coronary artery disease, COVID-19, Dental disease, Depression, Deviated septum, Diabetes mellitus ([facility]) (08/30/2023), Diabetes mellitus type 2, controlled ([facility]), Difficult intravenous access, OSEI (dyspnea on exertion), Esophageal reflux (08/30/2023), Esophageal stricture, Fatigue (06/28/2011), Fractures, Gallstone, Gallstones (04/03/2024), GERD (gastroesophageal reflux disease), H/O esophagogastroduodenoscopy, Heart attack ([facility]) (10/06/2023), Hiatal hernia, Hyperlipidemia, Hypertension, Hyponatremia, Incontinence of bowel, Incontinence of urine, 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, Lower extremity weakness (09/20/2023), MCI (mild cognitive impairment) (02/25/2021), Mild cognitive impairment, Mixed anxiety and depressive disorder (09/07/2017), Mixed hyperlipidemia (06/28/2011), Moderate episode of recurrent major depressive disorder ([facility]) (12/25/2022), Obesity, Obesity (BMI 30-39.9) (08/30/2023), Obesity, Class II, BMI 35-39.9 (04/13/2020), Obsessive compulsive disorder, Obsessive-compulsive disorder (11/07/2018), Obstructive sleep apnea syndrome (06/01/2022), Peripheral neuropathy, Pneumonia, PONV (postoperative nausea and vomiting), Primary hypertension (06/28/2011), Primary osteoarthritis of right knee (06/01/2022), Pseudophakia (05/05/2011), Pulmonary vascular congestion, Retinal detachment (06/01/2022), S/P total knee arthroplasty, right (04/12/2020), Salmonella, Sleep apnea, Spinal stenosis at L4-L5 level (10/15/2023), ST elevation myocardial infarction (STEMI) of inferior wall ([facility]) (10/15/2023), Type 2 diabetes mellitus with diabetic peripheral angiopathy without gangrene, with long-term current use of insulin ([facility]) (10/13/2019), Urinary retention, Visual impairment, Vitamin D deficiency, Vitreous hemorrhage ([facility]), and Vocal cord granuloma. He has a past surgical history that includes Colonoscopy (2012); Coronary artery bypass graft; Replacement total knee (Bilateral); Eye surgery (Bilateral); Cataract extraction, bilateral (Bilateral); Esophagogastroduodenoscopy; Rotator cuff repair; Septoplasty; Lumbar laminectomy (N/A, 09/21/2023); Lumbar fusion (N/A, 09/21/2023); and Back surgery (Left Circumferential, 09/21/2023). His family history includes Diabetes in his mother; Heart disease in his father; Hyperlipidemia in his father; Hypertension in his father and mother. He reports that he has never smoked. He has never used smokeless tobacco. He reports that he does not currently use alcohol. He reports that he does not use drugs. PREVIOUS ENDOSCOPIC PROCEDURES: As noted in the HPI Past Surgical History Past Surgical History: Procedure Laterality Date BACK SURGERY Left Circumferential 09/21/2023 fusion CATARACT EXTRACTION, BILATERAL Bilateral COLONOSCOPY 2013 CORONARY ARTERY BYPASS GRAFT ESOPHAGOGASTRODUODENOSCOPY dilatation EYE SURGERY Bilateral LAMINECTOMY LUMBAR SINGLE LEVEL / L4/5 N/A 09/21/2023 Performed by Mynor Steen MD at [facility] POSTERIOR LAMINECTOMY FUSION LUMBAR SINGLE LEVEL / L4/5 N/A 09/21/2023 Performed by Mynor Steen MD at [facility] REPLACEMENT TOTAL KNEE Bilateral ROTATOR CUFF REPAIR SEPTOPLASTY Current Medications: Current Outpatient Medications: acetaminophen (TYLENOL EXTRA STRENGTH) 500 mg tablet, , Disp: , Rfl: ADMEL SOLOSTAR U-100 INSULIN 100 unit/mL insulin pen, Per scale up to 25 units 3 times daily with meals, max dose of 75 units daily, Disp: 75 mL, Rfl: 3 aspirin 81 mg, Daily, Disp: , Rfl: atorvastatin (LIPITOR) 40 mg tablet, Take 1 tablet (40 mg total) by mouth in the morning., Disp: 90 tablet, Rfl: 3 busPIRone (BUSPAR) 10 mg tablet, Take 2 tablets (20 mg total) by mouth in the morning and 2 tablets (20 mg total) before bedtime., Disp: , Rfl: carvediloL (COREG) 12.5 mg [...] the morning., Disp: , Rfl: DULoxetine (CYMBALTA) 60 mg capsule, Take 1 capsule (60 mg total) by mouth in the morning., Disp: , Rfl: furosemide (LASIX) 20 mg tablet, Take 1 tablet (20 mg total) by mouth daily., Disp: 90 tablet, Rfl: 1 JARDIANCE 25 mg tablet tablet, TAKE 1 TABLET (25 MG TOTAL) BY MOUTH IN THE MORNING, Disp: 90 tablet, Rfl: 3 losartan (COZAAR) 25 mg tablet, Take 1 tablet (25 mg total) by mouth in the morning., Disp: , Rfl: melatonin (CIRCADIN) tablet, Take 2 tablets (6 mg total) by mouth nightly as needed. 1-2 tabs as needed nightly, Disp: , Rfl: mirtazapine (REMERON) 15 mg tablet, Take 1 tablet (15 mg total) by mouth once daily at bedtime., Disp: , Rfl: nitroglycerin (NITROSTAT) 0.4 MG SL tablet, , Disp: , Rfl: omega 9-val-ziq-fish oil (Fish OiL) 300-1,000 mg capsule, Take by mouth., Disp: , Rfl: potassium chloride (KLOR-CON SPRINKLE) 10 MEQ CR capsule, Take 1 capsule (10 mEq total) by mouth in the morning. Per Dr. Watts ., Disp: , Rfl: risperiDONE (RisperDAL) 1 mg tablet, TAKE 1 TABLET BY MOUTH TWICE A DAY FOR PYSCHOSIS, Disp: , Rfl: semaglutide (OZEMPIC) 2 mg/dose (8 mg/3 mL) pen injector, Inject 2 mg under the skin every 7 days., Disp: 9 mL, Rfl: 3 spironolactone (ALDACTONE) 25 mg tablet, Daily, Disp: , Rfl: TOUJEO MAX U-300 SOLOSTAR 300 unit/mL (3 mL) insulin pen, Inject 50 Units under the skin in the morning. Up to 75 units daily., Disp: 27 mL, Rfl: 3 traZODone (DESYREL) 100 mg tablet, Take 1 tablet (100 mg total) by mouth nightly as needed., Disp: , Rfl: hyoscyamine (LEVSIN) 0.125 mg SL tablet, Take 1 tablet (125 mcg total) by mouth every 4 (four) hours as needed for cramping., Disp: 30 tablet, Rfl: 0 I reviewed and reconciled this patient's medication list today. The list included in this note is the most up to date list that I can attest to at this time based on the information that the patient has provided me and the electronic medical record. ALLERGIES: Patient has no known allergies. SOCIAL HISTORY: Social History Tobacco Use Smoking status: Never Smokeless tobacco: Never Vaping Use Vaping status: Never Used Passive vaping exposure: Yes Substance Use Topics Alcohol use: Not Currently Drug use: No FAMILY HISTORY: Family History Problem Relation Age of Onset Diabetes Mother Hypertension Mother Heart disease Father Hyperlipidemia Father Hypertension Father Inflammatory bowel disease Neg Hx Cirrhosis Neg Hx Colon cancer Neg Hx ASSESSMENTS: REVIEW OF SYSTEMS: See HPI, otherwise ROS as below CONSTITUTIONAL: negative HEENT: negative RESPIRATORY: negative CARDIOVASCULAR: negative GASTROINTESTINAL: As in HPI GENITOURINARY: negative INTEGUMENT/BREAST: negative HEMATOLOGIC/LYMPHATIC: negative ALLERGIC/IMMUNOLOGIC: negative ENDOCRINE: negative MUSCULOSKELETAL: negative NEUROLOGICAL: negative BEHAVIOR/PSYCH: negative PHYSICAL EXAM: Vitals: 10/22/24 1437 BP: 132/78 Weight: 121.6 kg (268 lb) Height: 180.3 cm (5' 11 ) Body mass index is 37.38 kg/m . CONSTITUTIONAL: awake, alert and no apparent distress LUNGS: No increased work of breathing, good air exchange, clear to auscultation bilaterally, no crackles or wheezing CARDIOVASCULAR: regular rate and rhythm, normal S1 and S2 ABDOMEN: normal bowel sounds, soft, non-distended and non-tender NEURO: no focal deficits, moves all 4 extremities spontaneously RADIOLOGICAL DATA: No results found. DATA: CBC: Lab Results Component Value Date WBC 7.3 09/02/2024 HGB 13.3 09/02/2024 HCT 40.0 09/02/2024 MCV 93 09/02/2024 RDW 15.3 (H) 09/02/2024 PLT 273 09/02/2024 CMP: Lab Results Component Value Date K 4.2 10/03/2024 CL 105 10/03/2024 CO2 25 10/03/2024 BUN 27 10/03/2024 GLU 142 (H) 10/03/2024 GLU 108 (H) 06/10/2024 ASSESSMENT AND PLAN: Tom was seen today for follow-up and abdominal pain. Diagnoses and all orders for this visit: Left lateral abdominal pain Constipation, unspecified constipation type Antiplatelet or antithrombotic long-term use CAD, multiple vessel Other orders - hyoscyamine (LEVSIN) 0.125 mg SL tablet; Take 1 tablet (125 mcg total) by mouth every 4 (four) hours as needed for cramping. Normal CBC normal LFTs normal kidney function 06/10/2024. Normal lipase level. Extra abdomen March 22, 2024 showing moderate amount of feces. HIDA scan gallbladder normal December 22, 2023. Ultrasound abdomen showing cholelithiasis and hepatic steatosis November 21, 2023. History of spinal stenosis surgery, laminectomy September 22, 2023. History of colon polyps. Last colonoscopy 2017. We will try to get the record. We will hold off on doing a colonoscopy now taking into account coronary artery disease stenting - 4- placed in October 2023, with inability at the moment to withhold Plavix. Patient does not depict symptoms of biliary colic. Patient is on multiple medications with constipation side-effects including Ozempic Instructed the patient to take MiraLax every other day. We will add Levsin for cramping abdominal pain. Follow up in a month Recommend lifestyle measures including?keeping active,?sleep hygiene,?hydration throughout the day,?using the stepstool, and?incorporating fiber in her diet (target >25g per day) including eating 3-4 Kiwi with skin on or Dragonfruit daily.Black coffee intake. Managing stress levels. Thank you for allowing me to participate in this pleasant patient s care. Please do not hesitate to call my office for any questions/concerns. This note is dictated with the use of [employer], a computer voice recognition software. Quite often unanticipated grammatical, syntax, homophones, and other interpretive errors are inadvertently transcribed by the computer software. Please disregard these errors and please excuse any errors that have escaped final proofreading. Tim Ibrahim MD, MPH Gastroenterology & Hepatology Assignment Manager [facility] [address], [address] [place] [address] PH: [phone] [facility] Miscellaneous Notes We received a referral for education for Tom Khan 1955. However per CMS Guidelines the services requested need to be ordered by an MD or DO. Please see pended order and have MD/DO sign if agreeable. Thank you [facility] documented in this encounter [facility] 10-20-2024 Telephone encounter Note We received a referral for education for Tom Khan 1955. However per CMS Guidelines the services requested need to be ordered by an MD or DO. Please see pended order and have MD/DO sign if agreeable. Thank you [facility] 10-17-2024 History of Present illness Narrative Images from the original note were not included. REASON FOR VISIT: Tom Khan returns today for follow up of his diabetes. DIABETES HISTORY: Type of Diabetes: 2 Duration of Diabetes : since 2019 INTERVAL HISTORY: Hgb A1c is 7.5% today, from 7.4% at last visit. His Humalog pens have not been working properly, not injecting the full dose He is doing water therapy for hip pain. Not watching his diet. Has not been walking. Patient had a heart attack October 23, 2023 needing cardiac stenting x4. He is currently on Plavix. Also found to have gallbladder stones in awaiting cholecystectomy. Has not been cleared by Cardiology to go ahead with this. He has also had foot infection needing antibiotics. Currently seeing Podiatry. DIABETES COMPLICATIONS/SURVEILLANCE: Retinopathy: yes Last eye exam: 2024 Nephropathy: no Peripheral neuropathy: yes Sees podiatry: [...] : yes GLUCOSE CONTROL: Diabetes medications: Toujeo 50 units HS Humalog scale before meals (80-100: 8u, 101-150= 16 u, 151-200= 18 u, 201-250= 20, 250-300= 22 u, over 300= 24 units) Jardiance 25 mg daily Ozempic 2 mg weekly Blood glucose summary: Patient uses Dexcom G7 Insulin pump/ Continuous glucose monitoring sensor data is available to review under Media tab yes 14 day average BG is 163 Time in range is 74% Hypoglycemia 0 % Pattern/causes of high BG: post prandial Pattern/causes of low BG: rare Hypoglycemia: Awareness: GOOD Frequency: rare Glucagon available: no Past Medical History: Diagnosis Date Acute [place] ([facility] 10/15/2023 Angina pectoris ([facility]) Anxiety Arthritis osteoarthritis Autonomic neuropathy due to type 2 diabetes mellitus ([facility]) 06/01/2022 Back pain CAD, multiple vessel 08/30/2023 Cardiomegaly Cataract Cataract, nuclear sclerotic senile, right 08/14/2018 Added automatically from request for surgery [id number] CHF (congestive heart failure) ([facility]) Chronic diastolic CHF (congestive heart failure) ([facility]) 02/05/2023 Complaint of paresthesia 11/16/2022 Constipation 10/15/2023 Coronary arteriosclerosis 06/01/2022 Coronary artery disease Status post CABG COVID-19 Dental disease crowns Depression Deviated septum Diabetes mellitus ([facility]) 08/30/2023 Diabetes mellitus type 2, controlled ([facility]) Difficult intravenous access OSEI (dyspnea on exertion) Esophageal reflux 08/30/2023 Esophageal stricture Fatigue 06/28/2011 Fractures Gallstone Gallstones 04/03/2024 GERD (gastroesophageal reflux disease) H/O esophagogastroduodenoscopy dilatation Heart attack ([facility]) 10/06/2023 4 stints Hiatal hernia Hyperlipidemia Hypertension Hyponatremia Incontinence of bowel Incontinence of urine 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 Lower extremity weakness 09/20/2023 MCI (mild cognitive impairment) 02/25/2021 Mild cognitive impairment Mixed anxiety and depressive disorder 09/07/2017 Mixed hyperlipidemia 06/28/2011 Last Assessment & Plan: Assessment: no meds currently ,stable Moderate episode of recurrent major depressive disorder ([facility]) 12/25/2022 Obesity Obesity (BMI 30-39.9) 08/30/2023 Obesity, Class II, BMI 35-39.9 04/13/2020 Obsessive compulsive disorder Obsessive-compulsive disorder 11/07/2018 Obstructive sleep apnea syndrome 06/01/2022 Peripheral neuropathy Pneumonia PONV (postoperative nausea and vomiting) Primary hypertension 06/28/2011 Last Assessment & Plan: Assessment: on med,moniotred per PCP BP 143/74 pulse 64 Primary osteoarthritis of right knee 06/01/2022 Last Assessment & Plan: Assessment: will have surgery Pseudophakia 05/05/2011 Pulmonary vascular congestion Retinal detachment 06/01/2022 S/P total knee arthroplasty, right 04/12/2020 Salmonella Sleep apnea cpap Spinal stenosis at L4-L5 level 10/15/2023 ST elevation myocardial infarction (STEMI) of inferior wall ([facility]) 10/15/2023 Type 2 diabetes mellitus with diabetic peripheral angiopathy without gangrene, with long-term current use of insulin ([facility]) 10/13/2019 Urinary retention Visual impairment glasses retinal detatchment Vitamin D deficiency Vitreous hemorrhage ([facility]) Vocal cord granuloma Past Surgical History: Procedure Laterality Date BACK SURGERY Left Circumferential 09/21/2023 fusion CATARACT EXTRACTION, BILATERAL Bilateral COLONOSCOPY 2012 CORONARY ARTERY BYPASS GRAFT ESOPHAGOGASTRODUODENOSCOPY dilatation EYE SURGERY Bilateral LAMINECTOMY LUMBAR SINGLE LEVEL / L4/5 N/A 09/21/2023 Performed by Mynor Steen MD at [facility] POSTERIOR LAMINECTOMY FUSION LUMBAR SINGLE LEVEL / L4/5 N/A 09/21/2023 Performed by Mynor Steen MD at [facility] REPLACEMENT TOTAL KNEE Bilateral ROTATOR CUFF REPAIR SEPTOPLASTY Current Outpatient Medications: aspirin 81 mg, Daily, Disp: , Rfl: atorvastatin (LIPITOR) 40 mg tablet, Take 1 tablet (40 mg total) by mouth in the morning., Disp: 90 tablet, Rfl: 3 busPIRone (BUSPAR) 10 mg tablet, Take 2 tablets (20 mg total) by mouth in the morning and 2 tablets (20 mg total) before bedtime., Disp: , Rfl: carvediloL (COREG) 12.5 mg [...] the morning., Disp: , Rfl: DULoxetine (CYMBALTA) 60 mg capsule, Take 1 capsule (60 mg total) by mouth in the morning., Disp: , Rfl: furosemide (LASIX) 20 mg tablet, Take 1 tablet (20 mg total) by mouth daily., Disp: 90 tablet, Rfl: 1 JARDIANCE 25 mg tablet tablet, TAKE 1 TABLET (25 MG TOTAL) BY MOUTH IN THE MORNING, Disp: 90 tablet, Rfl: 3 losartan (COZAAR) 25 mg tablet, Take 1 tablet (25 mg total) by mouth in the morning., Disp: , Rfl: melatonin (CIRCADIN) tablet, Take 2 tablets (6 mg total) by mouth nightly as needed. 1-2 tabs as needed nightly, Disp: , Rfl: mirtazapine (REMERON) 15 mg tablet, Take 1 tablet (15 mg total) by mouth once daily at bedtime., Disp: , Rfl: omega 7-tat-ykj-fish oil (Fish OiL) 300-1,000 mg capsule, Take by mouth., Disp: , Rfl: potassium chloride (KLOR-CON SPRINKLE) 10 MEQ CR capsule, Take 1 capsule (10 mEq total) by mouth in the morning. Per Dr. Watts ., Disp: , Rfl: risperiDONE (RisperDAL) 1 mg tablet, TAKE 1 TABLET BY MOUTH TWICE A DAY FOR PYSCHOSIS, Disp: , Rfl: spironolactone (ALDACTONE) 25 mg tablet, Daily, Disp: , Rfl: traZODone (DESYREL) 100 mg tablet, Take 1 tablet (100 mg total) by mouth nightly as needed., Disp: , Rfl: acetaminophen (TYLENOL EXTRA STRENGTH) 500 mg tablet, Every 8 hours (Patient not taking: Reported on 08/11/2024), Disp: , Rfl: ADMELOG SOLOSTAR U-100 INSULIN 100 unit/mL insulin pen, Per scale up to 25 units 3 times daily with meals, max dose of 75 units daily, Disp: 75 mL, Rfl: 3 nitroglycerin (NITROSTAT) 0.4 MG SL tablet, Q5M (Patient not taking: Reported on 08/11/2024), Disp: , Rfl: semaglutide (OZEMPIC) 2 mg/dose (8 mg/3 mL) pen injector, Inject 2 mg under the skin every 7 days., Disp: 9 mL, Rfl: 3 TOUJEO MAX U-300 SOLOSTAR 300 unit/mL (3 mL) insulin pen, Inject 50 Units under the skin in the morning. Up to 75 units daily., Disp: 27 mL, Rfl: 3 Allergies, social history and family history were reviewed and updated in [facility]. REVIEW OF SYSTEMS: 10 systems have been reviewed and positives are discussed in HPI PHYSICAL EXAM: Wt Readings from Last 3 Encounters: 10/17/24 119.3 kg (263 lb 1.6 oz) 09/29/24 121.1 kg (267 lb) 08/11/24 105.7 kg (233 lb) Body mass index is 37.75 kg/m . Vitals: 10/17/24 1116 10/17/24 1137 BP: 98/64 110/72 Pulse: 64 Weight: 119.3 kg (263 lb 1.6 oz) General appearance: Well appearing male in [...] are appropriate. Diabetic foot exam performed today: yes Foot Exam: Visual exam was abnormal toe deformities . Left:Pedal Pulses: 2+- normal Vibratory sensation diminished Filament test diminished Right:Pedal Pulses: 2+- normal Vibratory sensation diminished Filament test diminished LABS: Lab Results Component Value Date RPDLPXV4Z 7.5 (A) 10/17/2024 INNEQKA4Q 7.4 (A) 06/26/2024 [id number] 7.7 (A) 12/14/2023 CMP: Lab Results Component Value Date SODIUM 141 10/03/2024 K 4.2 10/03/2024 CL 105 10/03/2024 CO2 25 10/03/2024 ANIONGAP 11 10/03/2024 BUN 27 10/03/2024 CREATININE 1.04 10/03/2024 GLU 142 (H) 10/03/2024 CALCIUM 9.4 10/03/2024 TOTALPROTEI 7.2 09/02/2024 ALBUMIN 3.9 09/02/2024 ALKPHOS 46 06/10/2024 AST 16 09/02/2024 ALT 17 09/02/2024 EGFR 79 10/03/2024 LIPID: Lab Results Component Value Date CHOL 137 (L) 09/02/2024 TRIG 166 (H) 09/02/2024 HDL 42 09/02/2024 LDLCALC 62 09/02/2024 Urine Microalbumin: Lab Results Component Value Date MICROALBUR 1.3 10/11/2022 URINECREAT 123.07 10/11/2022 ALBCREATRA 10.6 10/11/2022 TSH Date Value Ref Range Status 11/16/2023 1.35 0.49 - 4.67 uIU/mL Final T4, free Date Value Ref Range Status 09/19/2023 0.92 0.61 - 1.60 ng/dL Final Vitamin B-12 Date Value Ref Range Status 09/02/2024 601 180 - 914 pg/mL Final C peptide Date Value Ref Range Status 12/11/2023 1.80 0.81 - 3.85 ng/mL Final Comment: NOTE Test Performed By: [facility] [address] [place] [address] [employer] Repairer: Brandon Zapata III, M.D. [facility] #[id number]^ ASSESSMENT: Tom Khan has poorly controlled type 2 diabetes complicated by DM neuropathy and CAD PLAN: 1. Type 2 diabetes mellitus with diabetic peripheral angiopathy without gangrene, with long-term current use of insulin ([facility]) - POCT Hemoglobin A1c - ADMELOG SOLOSTAR U-100 INSULIN 100 unit/mL insulin pen; Per scale up to 25 units 3 times daily with meals, max dose of 75 units daily Dispense: 75 mL; Refill: 3 - TOUJEO MAX U-300 SOLOSTAR 300 unit/mL (3 mL) insulin pen; Inject 50 Units under the skin in the morning. Up to 75 units daily. Dispense: 27 mL; Refill: 3 - semaglutide (OZEMPIC) 2 mg/dose (8 mg/3 mL) pen injector; Inject 2 mg under the skin every 7 days. Dispense: 9 mL; Refill: 3 - Microalbumin - Albumin: Creatinine Urine Ratio; Future - [facility]- [place]. [place]; Future 2. Mixed hyperlipidemia Increase Toujeo to 52 units. Change Humalog to Admelog, continue the same scale. Decrease sugar/carbohydrates in diet and increase physical activity Yearly dilated eye exam Will refer to phytopathologist LDL and BP at goal. A1c elevation is associated with significant risk [...] foot injury. Return to clinic: 3 months TERRY Doe 10/17/24 1140 documented in this encounter [facility] 10-17-2024 Instructions TERRY Doe - 10/17/2024 10:45 AM EST Increase Toujeo to 52 units daily Admelog scale before meals 80-100: 8 units 101-150= 16 units 151-200= 18 units 201-250= 20 units 250-300= 22 units over 300= 24 units documented in this encounter [facility] 09-29-2024 History of Present illness Narrative Subjective Patient ID: Tom Khan is a 69 y.o. male. Chief Complaint Chief Complaint Patient presents with Follow-up Edema in feet and legs, still achy in joints, neck stiffness HPI HPI Here with Spent some time at [facility]. Psych meds re-adjusted. Mood doing much better. Was d/c on depaokote, ran out of Rx, has not been taking. Scheduled to see psychiatry. Weight up significantly. Notices some LE edema. Taking lasix 20 mg every other day currently. Wearing compression hose today. Sees cardiology Seeing orthopedics Some neck soreness, no radicular pain Constipation an issue. On ozempic 2 mg weekly. Has not started daily miralax Wt Readings from Last 3 Encounters: 09/29/24 121.1 kg (267 lb) 08/11/24 105.7 kg (233 lb) 06/26/24 104.7 kg (230 lb 14.4 oz) Past Medical History Past Medical History: Diagnosis Date Acute [place] 10/15/2023 Angina pectoris ([facility] Anxiety Arthritis osteoarthritis Autonomic neuropathy due to type 2 diabetes mellitus ([facility]) 06/01/2022 Back pain CAD, multiple vessel 08/30/2023 Cardiomegaly Cataract Cataract, nuclear sclerotic senile, right 08/14/2018 Added automatically from request for surgery [id number] CHF (congestive heart failure) ([facility]) Chronic diastolic CHF (congestive heart failure) ([facility]) 02/05/2023 Complaint of paresthesia 11/16/2022 Constipation 10/15/2023 Coronary arteriosclerosis 06/01/2022 Coronary artery disease Status post CABG COVID-19 Dental disease crowns Depression Deviated septum Diabetes mellitus ([facility]) 08/30/2023 Diabetes mellitus type 2, controlled ([facility]) Difficult intravenous access OSEI (dyspnea on exertion) Esophageal reflux 08/30/2023 Esophageal stricture Fatigue 06/28/2011 Fractures Gallstone Gallstones 04/03/2024 GERD (gastroesophageal reflux disease) H/O esophagogastroduodenoscopy dilatation Heart attack ([facility]) 10/06/2023 4 stints Hiatal hernia Hyperlipidemia Hypertension Hyponatremia Incontinence of bowel Incontinence of urine 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 Lower extremity weakness 09/20/2023 MCI (mild cognitive impairment) 02/25/2021 Mild cognitive impairment Mixed anxiety and depressive disorder 09/07/2017 Mixed hyperlipidemia 06/28/2011 Last Assessment & Plan: Assessment: no meds currently ,stable Moderate episode of recurrent major depressive disorder ([facility]) 12/25/2022 Obesity Obesity (BMI 30-39.9) 08/30/2023 Obesity, Class II, BMI 35-39.9 04/13/2020 Obsessive compulsive disorder Obsessive-compulsive disorder 11/07/2018 Obstructive sleep apnea syndrome 06/01/2022 Peripheral neuropathy Pneumonia PONV (postoperative nausea and vomiting) Primary hypertension 06/28/2011 Last Assessment & Plan: Assessment: on med,moniotred per PCP BP 143/74 pulse 64 Primary osteoarthritis of right knee 06/01/2022 Last Assessment & Plan: Assessment: will have surgery Pseudophakia 05/05/2011 Pulmonary vascular congestion Retinal detachment 06/01/2022 S/P total knee arthroplasty, right 04/12/2020 Salmonella Sleep apnea cpap Spinal stenosis at L4-L5 level 10/15/2023 ST elevation myocardial infarction (STEMI) of inferior wall ([facility]) 10/15/2023 Type 2 diabetes mellitus with diabetic peripheral angiopathy without gangrene, with long-term current use of insulin ([facility]) 10/13/2019 Urinary retention Visual impairment glasses retinal detatchment Vitamin D deficiency Vitreous hemorrhage ([facility]) Vocal cord granuloma Past Surgical History Past Surgical History: Procedure Laterality Date BACK SURGERY Left Circumferential 09/21/2023 fusion CATARACT EXTRACTION, BILATERAL Bilateral COLONOSCOPY 2012 CORONARY ARTERY BYPASS GRAFT ESOPHAGOGASTRODUODENOSCOPY dilatation EYE SURGERY Bilateral LAMINECTOMY LUMBAR SINGLE LEVEL / L4/5 N/A 09/21/2023 Performed by Mynor Steen MD at [facility] POSTERIOR LAMINECTOMY FUSION LUMBAR SINGLE LEVEL / L4/5 N/A 09/21/2023 Performed by Mynor Steen MD at [facility] REPLACEMENT TOTAL KNEE Bilateral ROTATOR CUFF REPAIR [...] Social History Narrative Not on file Social Drivers of Health Financial Resource Strain: Low Risk (04/17/2023) Overall Financial Resource Strain (CARDIA) Difficulty of Paying Living Expenses: Not very hard Food Insecurity: No Food Insecurity (08/11/2024) Hunger Screening Food Insecurity - Worry: Never True Food Insecurity - Inability: Never True Transportation Needs: No Transportation Needs (04/17/2023) PRAPARE - Transportation Lack of Transportation (Medical): No Lack of Transportation (Non-Medical): No Physical Activity: Sufficiently Active (04/17/2023) Exercise Vital Sign Days of Exercise per Week: 4 days Minutes of Exercise per Session: 60 min Stress: Stress Concern Present (04/17/2023) [employer] [place] [employer] - Occupational Stress Questionnaire Feeling of Stress : Rather much Social Connections: Socially Integrated (04/17/2023) Social Connection and Isolation Panel [NHANES] Frequency of Communication with Friends and Family: More than three times a week Frequency of Social Gatherings with Friends and Family: More than three times a week Attends Jewish Services: More than 4 times per year [...] Current Outpatient Medications Medication Sig Dispense Refill aspirin 81 mg Daily busPIRone (BUSPAR) 10 mg tablet Take 2 tablets (20 mg total) by mouth in the morning and 2 tablets (20 mg total) before bedtime. carvediloL (COREG) 12.5 mg tablet Take 1 tablet (12.5 mg total) by mouth in the morning and 1 tablet (12.5 mg total) before bedtime. 180 tablet 1 cholecalciferol, vitamin D3, 5,000 units tablet Take 1 tablet (5,000 Units total) by mouth in the morning. 90 tablet 3 clopidogreL (PLAVIX) 75 mg tablet Take 1 tablet (75 mg total) by mouth in the morning. insulin lispro (HumaLOG) 100 unit/mL insulin pen [...] MOUTH IN THE MORNING 90 tablet 3 losartan (COZAAR) 25 mg tablet Take 1 tablet (25 mg total) by mouth in the morning. melatonin (CIRCADIN) tablet Take 2 tablets (6 mg total) by mouth nightly as needed. 1-2 tabs as needed nightly mirtazapine (REMERON) 15 mg tablet Take 1 tablet (15 mg total) by mouth once daily at bedtime. omega 5-tot-ric-fish oil (Fish OiL) 300-1,000 mg capsule Take by mouth. risperiDONE (RisperDAL) 1 mg tablet TAKE 1 TABLET BY MOUTH TWICE A DAY FOR PYSCHOSIS semaglutide (OZEMPIC) 2 mg/dose (8 mg/3 mL) pen injector Inject 2 mg under the skin every 7 days. 9 mL 3 spironolactone (ALDACTONE) 25 mg tablet Daily traZODone (DESYREL) 100 mg tablet Take 1 tablet (100 mg total) by mouth nightly as needed. acetaminophen (TYLENOL EXTRA STRENGTH) 500 mg tablet Every 8 hours (Patient not taking: Reported on 09/29/2024) atorvastatin (LIPITOR) 40 mg tablet Take 1 tablet (40 mg total) by mouth in the morning. 90 tablet 3 DULoxetine (CYMBALTA) 60 mg capsule Take 1 capsule (60 mg total) by mouth in the morning. furosemide (LASIX) 20 mg tablet Take 1 tablet (20 mg total) by mouth every other day. insulin glargine U-300 conc (TOUJEO MAX U-300 SOLOSTAR) 300 unit/mL (3 mL) insulin pen Inject 50 Units under the skin in the morning. Please schedule appt. 60 mL 1 nitroglycerin (NITROSTAT) 0.4 MG SL tablet Q5M (Patient not taking: Reported on 09/29/2024) potassium chloride (KLOR-CON SPRINKLE) 10 MEQ CR capsule Take 1 capsule (10 mEq total) by mouth in the morning. Per Dr. Watts . No current facility-administered medications for this visit. Review of Systems Review of Systems Constitutional: Positive for unexpected weight change. Cardiovascular: Positive for leg swelling. Gastrointestinal: Positive for constipation. Musculoskeletal: Positive for arthralgias and neck pain. Objective Vitals BP 122/72 (BP Site: Right Arm, BP Postition: Sitting) Pulse 70 Temp 36.4 C (97.5 F) Ht 177.8 cm (5' 10 ) Wt 121.1 kg (267 lb) SpO2 96% BMI 38.31 kg/m Physical Exam Physical Exam Vitals and nursing note reviewed. Cardiovascular: Rate and Rhythm: Normal rate and regular rhythm. Heart sounds: Normal heart sounds, S1 normal and S2 normal. Pulmonary: Effort: Pulmonary effort is normal. Breath sounds: Normal breath sounds. No decreased breath sounds, wheezing, rhonchi or rales. Musculoskeletal: Right lower leg: Edema present. Left lower leg: Edema present. Skin: General: Skin is warm and dry. Neurological: Mental Status: He is alert and oriented to person, place, and time. Psychiatric: Attention and Perception: Attention normal. Mood and Affect: Mood normal. Speech: Speech normal. Behavior: Behavior normal. Behavior is cooperative. Thought Content: Thought content normal. Cognition and Memory: Cognition normal. Judgment: Judgment normal. Recent Pertinent Labs and Radiology Assessment/Plan 1. Essential hypertension - Basic Metabolic Panel; Future 2. Mixed hyperlipidemia 3. Chronic diastolic CHF (congestive heart failure) ([facility]) Increase lasix to 20 mg daily BMP later this week Return in about 2 months (around 11/27/2024) for Recheck. Medications Discontinued During This Encounter Medication Reason LORazepam (ATIVAN) 0.5 mg tablet Discontinued by another clinician divalproex sprinkle (DEPAKOTE SPRINKLE) 125 mg capsule Patient Stopped On Own hydrOXYzine (ATARAX) 25 mg tablet Therapy completed insulin glargine U-300 conc (TOUJEO MAX U-300 SOLOSTAR) 300 unit/mL (3 mL) insulin pen atorvastatin (LIPITOR) 80 mg tablet Reorder DULoxetine (CYMBALTA) 60 mg capsule Duplicate Listing DULoxetine (CYMBALTA) 30 mg capsule Reorder cyanocobalamin 1000 MCG tablet Therapy completed furosemide (LASIX) 20 mg tablet Reorder There are no Patient Instructions on file for this visit. TERRY Monteiro 09/30/24 [id number] documented in this encounter [facility] 09-26-2024 History of Present illness Narrative Images from the original note were not included. HISTORY OF PRESENT ILLNESS: EST PT Tom Khan is an 69 y.o. @ male. EST PT RECHECK RT KNEE- GIVEN PREDNISONE 09/12/24; ONLY WAS GOING TO TAKE IF NEEDED (PT DID NOT TAKE) - S/P RADHA HOSE - WEARS OCCASIONALLY XRAY RT KNEE EPIC 09/12/24 HX RT TKA PER DR SOTO 04/12/20 PREDNISONE GIVEN 09/12/24 NOTES IMPROVEMENT- C/O STIFFNESS- +SWELLING- USES ORGANIC CASTOR OIL; GOOD RELIEF - SOME TENDERNESS TO TOUCH- PT ICES/ELEVATES OCCASIONALLY - +TYLENOL AZALIA: PT FELL ON KNEE AT HOME; TRIPPED OVER A SHEET ~1MO AGO *LT HIP* EST PT RECHECK LT HIP - SYMPTOMS STARTED AFTER HE STARTED HAVING TO OVER- COMPENSATING FOR RT KNEE XRAY LT HIP TODAY EPIC 08/26/25 PAIN ANTERIOR/GROIN REGION- DIFFICULTY GOING FROM SITTING TO STANDING/STAIRS- +STIFFNESS ALLERGIES: No Known Allergies HOME MEDICATIONS: Current Outpatient Medications Medication Instructions aspirin 81 mg, Oral, Daily atorvastatin (LIPITOR) 80 mg busPIRone HCl (BUSPAR PO) BuSpar carvedilol (COREG) 12.5 mg, Oral, 2 times daily clopidogrel (PLAVIX) 75 mg, Oral, Daily DULoxetine (CYMBALTA) 30 mg, Oral, Daily RT furosemide (Lasix) 20 MG tablet Oral Insulin Lispro 100 UNIT/ML solution Subcutaneous, 3 times daily with meals Jardiance 25 mg, Daily labetalol (Normodyne) 200 MG tablet 1 tablet, Oral, 2 times daily losartan (COZAAR) 25 mg, Oral, Daily RT Melatonin 1 MG capsule Melatonin nitroglycerin (Nitrostat) 0.4 MG SL tablet Every 5 min PRN Ozempic, 2 MG/DOSE, 8 MG/3ML solution pen-injector risperiDONE (RISPERDAL) 1 mg, Oral, 2 times daily semaglutide (Ozempic, 0.25 or 0.5 MG/DOSE,) 2 MG/1.5ML solution pen-injector Ozempic sildenafil (VIAGRA) 50 mg, Oral, Daily PRN spironolactone (Aldactone) 25 MG tablet Oral, Daily Toujeo Max SoloStar 66 Units, Subcutaneous, Daily RT traZODone (Desyrel) 50 MG tablet traZODone HCl PHYSICAL EXAM: Knee Musculoskeletal Exam Gait Gait additional comments: Gait appear unsteady with initiation- finding balance.. pt has history of diabetic neuropathy and prior back surgery.. he denies n/t in feet. Inspection Leg length disparity: no discrepancy Right Erythema: none Effusion: none Edema: moderate Edema comment: hematoma anterior knee, skin wrinkles present. nontender, no skin breakdown or evidenc of infection Ecchymosis: none Deformity: none Alignment: normal Previous incision: anterolateral Incision: well-healed Palpation Right Right knee palpation is unremarkable. Increased warmth: none Masses: none Tenderness: none Range of Motion Right Right knee range of motion is normal and full. Right knee active extension: 4. Right knee passive extension: 2. Active flexion: 110 Passive flexion: 115 Strength Right Right knee strength is normal. Extension: 5/5. Extension is not affected by pain. Flexion: 5/5. Flexion is not affected by pain. Instability Right Instability signs: none - stable Varus stress grade: normal Valgus stress grade: normal Neurovascular Right Right knee neurovascular exam is normal. Pulses - PT: normal Posterior tibial: 2+ Capillary refill: warm and well-perfused Left Pulses - PT: normal Posterior tibial: 2+ Special Signs Right Right knee special signs are normal. Straight leg raise: normal Patellar apprehension: none General Constitutional: appears stated age Labored breathing: no Psychiatric: normal mood and affect Psychiatric comment: admits to some depression with medical co-morbities/ surgeries Neurological: alert and oriented x3 Skin: intact Lymphadenopathy: none Hip Musculoskeletal Exam Gait Gait additional comments: Gait appear unsteady with initiation- finding balance.. pt has history of diabetic neuropathy and prior back surgery.. he denies n/t in feet. Inspection Leg length disparity: no discrepancy Left Erythema: none Ecchymosis: none Edema: none Deformity: none Palpation Left Left hip palpation is normal. Increased warmth: none Tenderness: none (denies pain to palpation. + pain on end rom) Range of Motion Right Active ROM: abnormal. Passive ROM: abnormal. Active extension: 10. Passive extension: 40. Active flexion: 90. Active internal rotation: 15. Passive internal rotation: 30. Active external rotation: 20. Passive external rotation: 40. Left Left hip range of motion is within functional limits. Active ROM: abnormal and pain. Passive ROM: abnormal and pain. Active extension: 35. Passive extension: 40. Active flexion: 90. Active internal rotation: 15. Passive internal rotation: 30. Active external rotation: 20. Passive external rotation: 40. Strength Left Left hip strength is normal. Extension: 5/5. Flexion: 4+/5. Internal rotation: 5/5. External rotation: 5/5. Adduction: 5/5. Abduction: 5/5. Strength additional comments: Pt guarding on range of motion + stiffness bilateral Neurovascular Right Pulses - PT: normal Posterior tibial: 2+ Left Left hip neurovascular exam is normal. Pulses - PT: normal Posterior tibial: 2+ Special Tests Left Log roll test: negative MATHEUS test (left): negative Impingement test: positive Special tests additional comments: + FADIR Neg SLR for radiculopathy + tight hamstring. Limited IR with pain concerning for impingement. General Constitutional: appears stated age Labored breathing: no Psychiatric: normal mood and affect Psychiatric comment: admits to some depression with medical co-morbities/ surgeries Neurological: alert and oriented x3 Skin: intact Lymphadenopathy: none Vitals: There is no height or weight on file to calculate BMI. Tobacco Use: Unknown (09/26/2024) Patient History Smoking Tobacco Use: Never Smokeless Tobacco Use: Unknown Passive Exposure: Not on file Alcohol Use: Not At Risk (11/22/2023) AUDIT-C Frequency of Alcohol Consumption: Never Average Number of Drinks: 1 or 2 Frequency of Binge Drinking: Never IMAGING: Procedures Orders Placed This Encounter Procedures XR hip left 2 or 3 views Order Specific Question: Reason for exam: Answer: PAIN Ambulatory referral to Physical Therapy Standing Status: Future Standing Expiration Date: 03/26/2025 Referral Priority: Routine Referral Type: Consultation Referral Reason: Consult and Treat Referral Location: [facility] Requested Specialty: Physical Therapy Number of Visits Requested: 1 ASSESSMENT: ICD-10-CM 1. Acute pain of right knee M25.561 2. Traumatic hematoma of right knee, subsequent encounter S80.01XD 3. Left hip pain M25.552 XR hip left 2 or 3 views Ambulatory referral to Physical Therapy 4. Stiffness of hip joint, unspecified laterality M25.659 5. Gait difficulty R26.9 Ambulatory referral to Physical Therapy Assessment & Plan 1. Right knee hematoma. The condition appears to be improving, as evidenced by the presence of skin wrinkles and the absence of any signs or symptoms of infection. He has regained near full passive range of motion. 2. Left hip pain. He exhibits some pain in the lateral hip and groin area, with noticeable guarding during the examination. Despite this, he is able to stand and bear weight without experiencing significant discomfort. Pain is also present at the end range of motion. A possible diagnosis of femoral acetabular impingement was discussed. His balance and walking ability appear compromised, possibly due to a recent back surgery that involved significant cord compression. Physical therapy for balance and gait training is recommended. He expressed a desire to resume his workout routine, and it was suggested that he start with pool therapy. Once a pool therapy routine is established, he can transition to a home exercise plan. An intra-articular hip injection could be considered, but he prefers to avoid steroids due to his history of diabetes. He has a prednisone pack from a previous prescription that he has not yet used but would like to try [id number] Tylenol Arthritis Strength 500 mg, 2 tablets up to 3 times a day with meals for pain management as needed. His , who was present during the consultation, agreed with this treatment plan. Follow-up The patient will follow up in 5 to 6 weeks to assess his progress. Questions answered in laymen terms at the bedside. The diagnosis, home exercise plan and any ongoing restrictions/ recommendations reviewed. If unable to be reached in office, I recommend evaluation at nearest Emergency Room if any symptoms worsened or new symptoms develop for requiring urgent evaluation. documented in this encounter [facility] 09-12-2024 History of Present illness Narrative Images from the original note were not included. HISTORY OF PRESENT ILLNESS: EST PT Tom Khan is an 68 y.o. @ male. EST PT WITH NEW C/O RT KNEE- PT FELL ON KNEE AT HOME; TRIPPED OVER A SHEET ~1MO AGO- PT STATES HE TRIED TO GET AN APPT WITH DR SOTO BUT WE WERE ABLE TO SEE HIM SOONER XRAY RT KNEE TODAY EPIC 09/12/[address]X [address] TKA PER DR SOTO 04/12/20 C/O STIFFNESS- PAIN MEDIAL/ANTERIOR KNEE- TENDER TO TOUCH- SOME INSTABILITY- +SWELLING- PT ICES/ELEVATS- +IBUPROFEN ALLERGIES: No Known Allergies HOME MEDICATIONS: Current Outpatient Medications Medication Instructions ammonium lactate (Amlactin) 12 % cream Topical, Daily atorvastatin (LIPITOR) 80 mg busPIRone HCl (BUSPAR PO) BuSpar carvedilol (COREG) 12.5 mg, Oral, 2 times daily clopidogrel (PLAVIX) 75 mg, Oral, Daily DULoxetine (CYMBALTA) 30 mg, Oral, Daily RT gentamicin (Garamycin) 0.1 % ointment Apply to wound once daily. Insulin Lispro 100 UNIT/ML solution Subcutaneous, 3 times daily with meals Jardiance 25 mg, Daily labetalol (Normodyne) 200 MG tablet 1 tablet, Oral, 2 times daily LORazepam (ATIVAN) 0.5 mg, Oral, Every 6 hours PRN LORazepam 1 MG/0.5ML concentration LORazepam losartan (COZAAR) 25 mg, Oral, Daily RT Melatonin 1 MG capsule Melatonin nitroglycerin (Nitrostat) 0.4 MG SL tablet Every 5 min PRN Ozempic, 2 MG/DOSE, 8 MG/3ML solution pen-injector predniSONE (Deltasone) 20 MG tablet Take 2 tablets (40 mg) by mouth Daily for 5 days, THEN 1 tablet (20 mg) Daily for 5 days. Take with food. semaglutide (Ozempic, 0.25 or 0.5 MG/DOSE,) 2 MG/1.5ML solution pen-injector Ozempic sildenafil (VIAGRA) 50 mg, Oral, Daily PRN tamsulosin (FLOMAX) 0.4 mg, Oral, Nightly ticagrelor (Brilinta) 90 MG tablet Twice daily Toujeo Max SoloStar 66 Units, Subcutaneous, Daily RT traZODone (Desyrel) 50 MG tablet traZODone HCl PHYSICAL EXAM: Knee Musculoskeletal Exam Gait Limp: left Inspection Leg length disparity: no discrepancy Right Erythema: none Effusion: mild Edema: moderate Ecchymosis: medium Deformity: none Alignment: normal Previous incision: anterolateral Incision: well-healed Palpation Right Right knee palpation is unremarkable. Increased warmth: none Masses: none Tenderness: present Tenderness comment: medial anterior knee with bruise/ hematoma Range of Motion Right Right knee range of motion is normal and full. Active extension: 0 Passive extension: 0 Active flexion: 120 Passive flexion: 120 Strength Right Right knee strength is normal. Extension: 5/5. Flexion: 5/5. Instability Right Instability signs: none - stable Varus stress grade: normal Valgus stress grade: normal Neurovascular Right Right knee neurovascular exam is normal. Pulses - PT: normal Posterior tibial: 2+ Capillary refill: warm and well-perfused Special Signs Right Right knee special signs are normal. Patellar apprehension: none General Constitutional: appears stated age Labored breathing: no Psychiatric: normal mood and affect Neurological: alert Skin: intact Lymphadenopathy: none Vitals: Body mass index is 35.29 kg/m . Tobacco Use: Unknown (09/12/2024) Patient History Smoking Tobacco Use: Never Smokeless Tobacco Use: Unknown Passive Exposure: Not on file Alcohol Use: Not At Risk (11/22/2023) AUDIT-C Frequency of Alcohol Consumption: Never Average Number of Drinks: 1 or 2 Frequency of Binge Drinking: Never IMAGING: Procedures Orders Placed This Encounter Procedures XR knee 1 or 2 views right Order Specific Question: Reason for exam: Answer: PAIN ASSESSMENT: ICD-10-CM 1. Acute pain of right knee M25.561 XR knee 1 or 2 views right 2. History of bilateral knee replacement Z96.653 3. Traumatic hematoma of right knee, initial encounter S80.01XA predniSONE (Deltasone) 20 MG tablet Assessment & Plan 1. Right knee pain. The pain is subsiding. He has a history of right knee replacement and presents with significant swelling and bruising indicative of a traumatic hematoma, which appears to be gradually resolving. He has previously experienced cellulitis in the lower leg due to edema and has undergone vein stripping for a cardiac procedure. It is recommended that he wear RADHA hose on both legs, even if assistance is required for application. A prescription for prednisone was discussed to manage inflammation. He may take this medication if discomfort arises, but he is aware that it will elevate his blood sugar levels, necessitating an increase in insulin dosage to maintain blood sugar control. He will consider the steroid but will only use it if absolutely necessary. He may continue using Tylenol for pain management and activity modification. 2. Left hip discomfort. He exhibits limited range of motion and some discomfort in his left hip, raising concerns for potential arthritis. An x-ray of his left hip will be conducted during the follow-up visit in 2 weeks. Follow-up The patient will follow up in 2 weeks. PROCEDURE The patient underwent a right knee replacement procedure in the past. Additionally, he has had vein stripping for a cardiac procedure. Questions answered in laymen terms at the bedside. The diagnosis, home exercise plan and any ongoing restrictions/ recommendations reviewed. If unable to be reached in office, I recommend evaluation at nearest Emergency Room if any symptoms worsened or new symptoms develop for requiring urgent evaluation. documented in this encounter [facility] 09-01-2024 History of Present illness Narrative Images from the original note were not included. Subjective Patient ID: Tom Khan is a 68 y.o. male who presents for DM Foot Care ( Tom Khan is a 68 y.o. male. Established pt presents for diabetic nail care, patient relates 08/26/2024 he was at [facility] ER for swelling, cellulitis. Ultra sound was negative for Blood clots. PCP: Dr. Mini URIZ 03/14/24, A1C: 7.0, BS: 200, SS: 11.5). HPI This is an established patient who returns to clinic for diabetic foot evaluation. Review of Systems Constitutional: Negative for activity change and appetite change. Respiratory: Negative for chest tightness and shortness of breath. Cardiovascular: Positive for leg swelling. Negative for chest pain. Musculoskeletal: Positive for arthralgias. Skin: Negative for color change and wound. Neurological: Positive for numbness. Negative for weakness. Psychiatric/Behavioral: Negative for agitation and behavioral problems. Hematological: Does not bruise/bleed easily. Endocrine: Negative for cold intolerance and heat intolerance. Allergic/Immunologic: Negative for immunocompromised state. Past medical History Past Medical History: Diagnosis Date CAD (coronary artery disease) ([facility]) Depression ([facility]) Diabetes ([facility]) TypeII HTN (hypertension) ([facility]) Medications Current Outpatient Medications: Jardiance 25 MG, Take 25 mg by mouth Daily, Disp: , Rfl: Ozempic, 2 MG/DOSE, 8 MG/3ML solution pen-injector, , Disp: , Rfl: ammonium lactate (Amlactin) 12 % cream, Apply topically Daily, Disp: 140 g, Rfl: 3 atorvastatin (Lipitor) 80 MG tablet, 80 mg, Disp: , Rfl: busPIRone HCl (BUSPAR PO), BuSpar, Disp: , Rfl: carvedilol (Coreg) 12.5 MG tablet, Take 12.5 mg by mouth in the morning and 12.5 mg in the evening., Disp: , Rfl: clopidogrel (Plavix) 75 MG tablet, Take 75 mg by mouth Daily, Disp: , Rfl: DULoxetine (Cymbalta) [address] capsule, Take 30 mg by mouth in the morning., Disp: , Rfl: gentamicin (Garamycin) 0.1 % ointment, Apply to wound once daily., Disp: 30 g, Rfl: 0 Insulin Lispro 100 UNIT/ML solution, Inject under the skin 3 (three) times a day with meals., Disp: , Rfl: labetalol (Normodyne) 200 MG tablet, Take 1 tablet by mouth in the morning and 1 tablet before bedtime., Disp: , Rfl: LORazepam (Ativan) 0.5 MG tablet, Take 0.5 mg by mouth every 6 (six) hours if needed., Disp: , Rfl: LORazepam 1 MG/0.5ML concentration, LORazepam, Disp: , Rfl: losartan (Cozaar) 25 MG tablet, Take 25 mg by mouth in the morning., Disp: , Rfl: Melatonin 1 MG capsule, Melatonin, Disp: , Rfl: nitroglycerin (Nitrostat) 0.4 MG SL tablet, every 5 (five) minutes if needed, Disp: , Rfl: semaglutide (Ozempic, 0.25 or 0.5 MG/DOSE,) 2 MG/1.5ML solution pen-injector, Ozempic, Disp: , Rfl: sildenafil (Viagra) 50 MG tablet, Take 50 mg by mouth Daily as needed., Disp: , Rfl: tamsulosin (Flomax) 0.4 MG 24 hr capsule, Take 0.4 mg by mouth at bedtime, Disp: , Rfl: ticagrelor (Brilinta) 90 MG tablet, Twice daily, Disp: , Rfl: Toujeo Max SoloStar 300 UNIT/ML injection, Inject 66 Units under the skin in the morning., Disp: , Rfl: traZODone (Desyrel) 50 MG tablet, traZODone HCl, Disp: , Rfl: Allergies Patient has no known allergies. Past Surgical History Past Surgical History: Procedure Laterality Date CATARACT EXTRACTION Bilateral CORONARY ANGIOPLASTY WITH STENT PLACEMENT 10/06/2023 CORONARY ARTERY BYPASS GRAFT CORONARY ARTERY BYPASS GRAFT KNEE ARTHROSCOPY W/ DEBRIDEMENT Bilateral LAMINECTOMY 09/05/2023 SEPTOPLASTY SHOULDER ARTHROSCOPY Left TOTAL KNEE ARTHROPLASTY Right 04/2020 TOTAL KNEE ARTHROPLASTY Left Family History Family History Problem Relation Name Age of Onset Diabetes Mother Stroke Mother Congenital heart disease Father Mental illness Other Hypertension Other Objective Physical Exam Constitutional: General: He is not in acute distress. Cardiovascular: Comments: DP pulse: 2/4 PT pulse: 2/4 Skin temperature is warm to warm Edema: +1 pitting bilaterally. Multiple telangiectasias and varicosities bilaterally. Pulmonary: Effort: Pulmonary effort is normal. No respiratory distress. Musculoskeletal: Cervical back: Neck supple. No rigidity. Comments: Pedal deformities: Pes planus morphology with multiple hammertoe contractures bilaterally. Skin: Capillary Refill: Capillary refill takes 2 to 3 seconds. Comments: 7 toenails exhibit clinical mycosis with thickened appearance, yellow/brown discoloration, crumbly texture, subungual debris. All 10 toenails are elongated. Hyperkeratotic tissue: Left foot: None Right foot: Plantar 2nd metatarsal, with preulcerative lesion. Skin is diffusely thin. Neurological: Mental Status: He is alert. Comments: Protective sensation intact at 3/10 pedal sites Vibratory sensation diminished at the 1st MTP bilaterally. Psychiatric: Mood and Affect: Mood normal. Behavior: Behavior normal. Assessment/Plan ICD-10-CM 1. Corns and callosities L84 ammonium lactate (Amlactin) 12 % cream 2. Diabetic polyneuropathy associated with type 2 diabetes mellitus (CMS/HCC) E11.42 3. Dermatophytosis of nail B35.1 4. Dystrophic nail L60.3 Patient was examined and evaluated. 10 toenails were debrided in length and thickness today utilizing a nail nipper and electric bur profile grinder technician without incident. A sterile #15 blade was utilized to reduce all hyperkeratotic tissue without incident and to patient's satisfaction. After debridement no ulceration noted. I have discussed the importance of daily foot examinations and tight blood sugar control. Patient has a ammonium lactate cream and I recommend applying it is any callused areas once daily. This will also help to reinforced daily foot inspections. Patient was not aware that he had the cream and I recommend that he pick it up and use it daily. We will follow up in 3 months for at risk diabetic foot evaluation. He will call sooner with any issues or concerns. This note was created with the assistance of a speech recognition program. While intending to generate a timely document that accurately reflects the content of the visit, no guarantee can be provided that every grammatical or spelling mistake has been or will be identified or corrected. Thank you for your understanding. Mc Chatman DPM documented in this encounter [facility] 08-26-2024 Hospital Discharge instructions Pritesh Giles MD - 08/26/2024 2:42 PM EST Follow up with the listed physician or medical clinic within 24-72 hours. Return to the Emergency Department if you develop any new or concerning symptoms or if your are getting worse The following attachments cannot be sent through Care Everywhere.Venous Insufficiency: General Info (Liberian)documented in this encounter [facility] 08-11-2024 History of Present illness Narrative Images from the original note were not included. [facility] New Patient Visit Chief Complaint Patient presents with New Patient Abdominal Pain He reports upper abdominal pain and on both sides. reports constipation with occasional miralax HISTORY OF PRESENT ILLNESS: Tom Khan is a 68 y.o. male who has a past medical history of Acute [place] ([facility]) (10/15/2023), Angina pectoris ([facility]), Anxiety, Arthritis, Autonomic neuropathy due to type 2 diabetes mellitus ([facility]) (06/01/2022), Back pain, CAD, multiple vessel (08/30/2023), Cardiomegaly, Cataract, Cataract, nuclear sclerotic senile, right (08/14/2018), CHF (congestive heart failure) ([facility]), Chronic diastolic CHF (congestive heart failure) ([facility]) (02/05/2023), Complaint of paresthesia (11/16/2022), Constipation (10/15/2023), Coronary arteriosclerosis (06/01/2022), Coronary artery disease, COVID-19, Dental disease, Depression, Deviated septum, Diabetes mellitus ([facility]) (08/30/2023), Diabetes mellitus type 2, controlled ([facility]), Difficult intravenous access, OSEI (dyspnea on exertion), Esophageal reflux (08/30/2023), Esophageal stricture, Fatigue (06/28/2011), Fractures, Gallstone, Gallstones (04/03/2024), GERD (gastroesophageal reflux disease), H/O esophagogastroduodenoscopy, Heart attack ([facility]) (10/06/2023), Hiatal hernia, Hyperlipidemia, Hypertension, Hyponatremia, Incontinence of bowel, Incontinence of urine, 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, Lower extremity weakness (09/20/2023), MCI (mild cognitive impairment) (02/25/2021), Mild cognitive impairment, Mixed anxiety and depressive disorder (09/07/2017), Mixed hyperlipidemia (06/28/2011), Moderate episode of recurrent major depressive disorder ([facility]) (12/25/2022), Obesity, Obesity (BMI 30-39.9) (08/30/2023), Obesity, Class II, BMI 35-39.9 (04/13/2020), Obsessive compulsive disorder, Obsessive-compulsive disorder (11/07/2018), Obstructive sleep apnea syndrome (06/01/2022), Peripheral neuropathy, Pneumonia, PONV (postoperative nausea and vomiting), Primary hypertension (06/28/2011), Primary osteoarthritis of right knee (06/01/2022), Pseudophakia (05/05/2011), Pulmonary vascular congestion, Retinal detachment (06/01/2022), S/P total knee arthroplasty, right (04/12/2020), Salmonella, Sleep apnea, Spinal stenosis at L4-L5 level (10/15/2023), ST elevation myocardial infarction (STEMI) of inferior wall ([facility]) (10/15/2023), Type 2 diabetes mellitus with diabetic peripheral angiopathy without gangrene, with long-term current use of insulin ([facility]) (10/13/2019), Urinary retention, Visual impairment, Vitamin D deficiency, Vitreous hemorrhage ([facility]), and Vocal cord granuloma. referred for further evaluation/management of abdominal pain. Normal CBC normal LFTs normal kidney function 06/10/2024. Normal lipase level. Extra abdomen March 22, 2024 showing moderate amount of feces. HIDA scan gallbladder normal December 22, 2023. Ultrasound abdomen showing cholelithiasis and hepatic steatosis November 21, 2023. Patient presenting today accompanied by his spouse. Patient reports having constipation for several months duration. Patient on Wegovy and on 5 psych medications. Patient reports having incomplete evacuation symptoms bloating and abdominal pain. He has a bowel movement Sibley 2-4 with straining. No melena no hematochezia. The patient reports having last colonoscopy with Dr. Gould in 2018. Patient has a history of colon polyps. Family history negative for colon cancer. No unintentional weight loss. No nausea no vomiting. No coffee-ground emesis no hematemesis. Patient takes MiraLax intermittently. Intermittently. The following portions of the patient's history were reviewed and updated as appropriate: Patient Care Team: Leeann Castillo APRN-QI as PCP - General (Internal Medicine) Alea Mckenzie MD as Referring Physician (Endocrinology, Diabetes & Metabolism) Mely Call RN as Hardboard Factory Worker He has a past medical history of Acute [place] ([facility]) (10/15/2023), Angina pectoris ([facility]), Anxiety, Arthritis, Autonomic neuropathy due to type 2 diabetes mellitus ([facility]) (06/01/2022), Back pain, CAD, multiple vessel (08/30/2023), Cardiomegaly, Cataract, Cataract, nuclear sclerotic senile, right (08/14/2018), CHF (congestive heart failure) ([facility]), Chronic diastolic CHF (congestive heart failure) ([facility]) (02/05/2023), Complaint of paresthesia (11/16/2022), Constipation (10/15/2023), Coronary arteriosclerosis (06/01/2022), Coronary artery disease, COVID-19, Dental disease, Depression, Deviated septum, Diabetes mellitus ([facility]) (08/30/2023), Diabetes mellitus type 2, controlled ([facility]), Difficult intravenous access, OSEI (dyspnea on exertion), Esophageal reflux (08/30/2023), Esophageal stricture, Fatigue (06/28/2011), Fractures, Gallstone, Gallstones (04/03/2024), GERD (gastroesophageal reflux disease), H/O esophagogastroduodenoscopy, Heart attack ([facility]) (10/06/2023), Hiatal hernia, Hyperlipidemia, Hypertension, Hyponatremia, Incontinence of bowel, Incontinence of urine, 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, Lower extremity weakness (09/20/2023), MCI (mild cognitive impairment) (02/25/2021), Mild cognitive impairment, Mixed anxiety and depressive disorder (09/07/2017), Mixed hyperlipidemia (06/28/2011), Moderate episode of recurrent major depressive disorder ([facility]) (12/25/2022), Obesity, Obesity (BMI 30-39.9) (08/30/2023), Obesity, Class II, BMI 35-39.9 (04/13/2020), Obsessive compulsive disorder, Obsessive-compulsive disorder (11/07/2018), Obstructive sleep apnea syndrome (06/01/2022), Peripheral neuropathy, Pneumonia, PONV (postoperative nausea and vomiting), Primary hypertension (06/28/2011), Primary osteoarthritis of right knee (06/01/2022), Pseudophakia (05/05/2011), Pulmonary vascular congestion, Retinal detachment (06/01/2022), S/P total knee arthroplasty, right (04/12/2020), Salmonella, Sleep apnea, Spinal stenosis at L4-L5 level (10/15/2023), ST elevation myocardial infarction (STEMI) of inferior wall ([facility]) (10/15/2023), Type 2 diabetes mellitus with diabetic peripheral angiopathy without gangrene, with long-term current use of insulin ([facility]) (10/13/2019), Urinary retention, Visual impairment, Vitamin D deficiency, Vitreous hemorrhage ([facility]), and Vocal cord granuloma. He has a past surgical history that includes Colonoscopy (2012); Coronary artery bypass graft; Replacement total knee (Bilateral); Eye surgery (Bilateral); Cataract extraction, bilateral (Bilateral); Esophagogastroduodenoscopy; Rotator cuff repair; Septoplasty; Lumbar laminectomy (N/A, 09/21/2023); Lumbar fusion (N/A, 09/21/2023); and Back surgery (Left Circumferential, 09/21/2023). His family history includes Diabetes in his mother; Heart disease in his father; Hyperlipidemia in his father; Hypertension in his father and mother. He reports that he has never smoked. He has never used smokeless tobacco. He reports that he does not currently use alcohol. He reports that he does not use drugs. PREVIOUS ENDOSCOPIC PROCEDURES: As noted in the HPI Past Surgical History Past Surgical History: Procedure Laterality Date BACK SURGERY Left Circumferential 09/21/2023 fusion CATARACT EXTRACTION, BILATERAL Bilateral COLONOSCOPY 2012 CORONARY ARTERY BYPASS GRAFT ESOPHAGOGASTRODUODENOSCOPY dilatation EYE SURGERY Bilateral LAMINECTOMY LUMBAR SINGLE LEVEL / L4/5 N/A 09/21/2023 Performed by Mynor Steen MD at [facility] POSTERIOR LAMINECTOMY FUSION LUMBAR SINGLE LEVEL / L4/5 N/A 09/21/2023 Performed by Mynor Steen MD at [facility] REPLACEMENT TOTAL KNEE Bilateral ROTATOR CUFF REPAIR SEPTOPLASTY Current Medications: Current Outpatient Medications: aspirin 81 mg, Daily, Disp: , Rfl: atorvastatin (LIPITOR) 80 mg tablet, Take 0.5 tablets (40 mg total) by mouth in the morning., Disp: , Rfl: busPIRone (BUSPAR) 10 mg tablet, Take 2 tablets (20 mg total) by mouth in the morning and 2 tablets (20 mg total) before bedtime., Disp: , Rfl: carvediloL (COREG) 12.5 mg [...] mouth in the morning., Disp: , Rfl: divalproex sprinkle (DEPAKOTE SPRINKLE) 125 mg capsule, Take 1 capsule (125 mg total) by mouth in the morning and 1 capsule (125 mg total) before bedtime., Disp: , Rfl: DULoxetine (CYMBALTA) 60 mg capsule, Take 90 mg by mouth in the morning. 90 mg in morning ., Disp: , Rfl: hydrOXYzine (ATARAX) 25 mg tablet, TAKE 1 TABLET BY MOUTH 4 TIMES A DAY NEEDED FOR ANXIETY OR INSOMNIA, Disp: , Rfl: insulin glargine U-300 conc [...] THE MORNING, Disp: 90 tablet, Rfl: 3 losartan (COZAAR) 25 mg tablet, Take 1 tablet (25 mg total) by mouth in the morning., Disp: , Rfl: melatonin (CIRCADIN) tablet, Take 2 tablets (6 mg total) by mouth nightly as needed. 1-2 tabs as needed nightly, Disp: , Rfl: mirtazapine (REMERON) 15 mg tablet, Take 1 tablet (15 mg total) by mouth once daily at bedtime., Disp: , Rfl: omega 1-stf-mef-fish oil (Fish OiL) 300-1,000 mg capsule, Take by mouth., Disp: , Rfl: risperiDONE (RisperDAL) 1 mg tablet, TAKE 1 TABLET BY MOUTH TWICE A DAY FOR PYSCHOSIS, Disp: , Rfl: semaglutide (OZEMPIC) 2 mg/dose (8 mg/3 mL) pen injector, Inject 2 mg under the skin every 7 days., Disp: 9 mL, Rfl: 3 spironolactone (ALDACTONE) 25 mg tablet, Daily, Disp: , Rfl: traZODone (DESYREL) 100 mg tablet, Take 1 tablet (100 mg total) by mouth nightly as needed., Disp: , Rfl: acetaminophen (TYLENOL EXTRA STRENGTH) 500 mg tablet, Every 8 hours (Patient not taking: Reported on 08/11/2024), Disp: , Rfl: cyanocobalamin 1000 MCG tablet, Take 1 tablet (1,000 mcg total) by mouth in the morning. (Patient not taking: Reported on 08/11/2024), Disp: 90 tablet, Rfl: 3 DULoxetine (CYMBALTA) 30 mg capsule, TAKE 1 CAPSULE BY MOUTH EVERY DAY (Patient not taking: Reported on 08/11/2024), Disp: , Rfl: LORazepam (ATIVAN) 0.5 mg tablet, Take 1mg in the morning and 0.5mg at bedtime (Patient not taking: Reported on 08/11/2024), Disp: 15 tablet, Rfl: 0 nitroglycerin (NITROSTAT) 0.4 MG SL tablet, Q5M (Patient not taking: Reported on 08/11/2024), Disp: , Rfl: I reviewed and reconciled this patient's medication list today. The list included in this note is the most up to date list that I can attest to at this time based on the information that the patient has provided me and the electronic medical record. ALLERGIES: Patient has no known allergies. SOCIAL HISTORY: Social History Tobacco Use Smoking status: Never Smokeless tobacco: Never Vaping Use Vaping status: Never Used Passive vaping exposure: Yes Substance Use Topics Alcohol use: Not Currently Drug use: No FAMILY HISTORY: Family History Problem Relation Age of Onset Diabetes Mother Hypertension Mother Heart disease Father Hyperlipidemia Father Hypertension Father ASSESSMENTS: REVIEW OF SYSTEMS: See HPI, otherwise ROS as below CONSTITUTIONAL: negative HEENT: negative RESPIRATORY: negative CARDIOVASCULAR: negative GASTROINTESTINAL: As in HPI GENITOURINARY: negative INTEGUMENT/BREAST: negative HEMATOLOGIC/LYMPHATIC: negative ALLERGIC/IMMUNOLOGIC: negative ENDOCRINE: negative MUSCULOSKELETAL: negative NEUROLOGICAL: negative BEHAVIOR/PSYCH: negative PHYSICAL EXAM: Vitals: 08/11/24 1036 BP: 118/68 Weight: 105.7 kg (233 lb) Height: 177.8 cm (5' 10 ) Body mass index is 33.43 kg/m . CONSTITUTIONAL: awake, alert and no apparent distress LUNGS: No increased work of breathing, good air exchange, clear to auscultation bilaterally, no crackles or wheezing CARDIOVASCULAR: regular rate and rhythm, normal S1 and S2 ABDOMEN: normal bowel sounds, soft, non-distended and non-tender NEURO: no focal deficits, moves all 4 extremities spontaneously RADIOLOGICAL DATA: No results found. DATA: CBC: Lab Results Component Value Date WBC 8.4 06/10/2024 HGB 14.1 06/10/2024 HCT 41.4 06/10/2024 MCV 92 06/10/2024 RDW 15.6 (H) 06/10/2024 PLT 244 06/10/2024 CMP: Lab Results Component Value Date K 4.1 06/10/2024 CL 106 06/10/2024 CO2 26 06/10/2024 BUN 20 06/10/2024 GLU 108 (H) 06/10/2024 ASSESSMENT AND PLAN: Tom was seen today for new patient and abdominal pain. Diagnoses and all orders for this visit: Constipation, unspecified constipation type Abdominal pain, unspecified abdominal location Normal CBC normal LFTs normal kidney function 06/10/2024. Normal lipase level. Extra abdomen March 22, 2024 showing moderate amount of feces. HIDA scan gallbladder normal December 22, 2023. Ultrasound abdomen showing cholelithiasis and hepatic steatosis November 21, 2023. History of spinal stenosis surgery, laminectomy September 22, 2023. History of colon polyps. Last colonoscopy 2017. We will try to get the record. We will hold off on doing a colonoscopy now taking into account coronary artery disease stenting - 4- placed in October 2023, with inability at the moment to withhold Plavix. Patient does not depict symptoms of biliary colic. Patient is on multiple medications with constipation side-effects including Wegovy. Instructed the patient to take MiraLax daily For constipation. Recommend lifestyle measures including?keeping active,?sleep hygiene,?hydration throughout the day,?using the stepstool, and?incorporating fiber in her diet (target >25g per day) including eating 3-4 Kiwi with skin on or Dragonfruit daily.Black coffee intake. Managing stress levels. Follow up in a month Thank you for allowing me to participate in this pleasant patient s care. Please do not hesitate to call my office for any questions/concerns. This note is dictated with the use of [employer], a computer voice recognition software. Quite often unanticipated grammatical, syntax, homophones, and other interpretive errors are inadvertently transcribed by the computer software. Please disregard these errors and please excuse any errors that have escaped final proofreading. Tim Ibrahim MD, MPH Gastroenterology & Hepatology Assignment Manager [facility] [address], [facility] [address] [place] [address] PH: [phone] documented in this encounter [facility] 08-11-2024 Instructions Tim Ibrahim MD - 08/11/2024 10:30 AM EST Recommend lifestyle measures including?keeping active,?sleep hygiene,?hydration throughout the day,?using the stepstool, and?incorporating fiber in her diet (target >25g per day) including eating 3-4 Kiwi with skin on or Dragonfruit daily.Black coffee intake. Managing stress levels. Active lifestyle Hydrate yourself daily documented in this encounter [facility] 07-16-2024 History of Present illness Narrative Subjective Tom Khan is a 68 y.o. male Chief Complaint Follow-up 68-year-old gentleman returns for 6 months following non-ST elevation [place] in October with primary revascularization of the [...] total., Disp: 100 tablet, Rfl: 11 omega 8-yob-gxo-fish oil (Fish OiL) 1,000 mg (120 mg-180 [...] Attestation By signing my name below, I, Mg Campos LPNibumang attest that this documentation has been prepared [...] discussion and plan. documented in this encounter [facility] Work Phone: 07-16-2024 Instructions Nataly Urias LPN [...] instructions on exercise. documented in this encounter [facility] Work Phone: 07-03-2024 Miscellaneous Notes Tried to call pt to schedule referral for abd pain, rang 3 times then call was disconnected. Will try again at a later date. documented in this encounter [facility] 07-03-2024 Telephone encounter Note Tried to call pt to schedule referral for abd pain, rang 3 times then call was disconnected. Will try again at a later date. [facility] 06-26-2024 History of Present illness Narrative REASON [...] Past Medical History: Diagnosis Date Angina pectoris ([facility]) Anxiety Arthritis osteoarthritis Back pain Cardiomegaly Cataract CHF (congestive heart failure) ([facility]) Coronary artery disease Status post CABG COVID-19 Dental disease crowns Depression Deviated septum Diabetes mellitus type 2, controlled ([facility]) Difficult intravenous access OSEI (dyspnea on exertion) Esophageal stricture Fractures Gallstone GERD (gastroesophageal reflux disease) H/O esophagogastroduodenoscopy dilatation Heart attack ([facility]) 10/06/2023 4 stints Hiatal hernia Hyperlipidemia Hypertension Hyponatremia Incontinence of bowel Incontinence of urine 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 Mild cognitive impairment Obesity Obsessive compulsive disorder Peripheral neuropathy Pneumonia PONV (postoperative nausea and vomiting) Pulmonary vascular congestion Salmonella Sleep apnea cpap Urinary retention Visual impairment glasses retinal detatchment Vitamin D deficiency Vitreous hemorrhage ([facility]) Vocal cord granuloma Past Surgical History: Procedure Laterality Date BACK SURGERY Left Circumferential 09/21/2023 fusion CATARACT EXTRACTION, BILATERAL Bilateral COLONOSCOPY 2012 CORONARY ARTERY BYPASS GRAFT ESOPHAGOGASTRODUODENOSCOPY dilatation EYE SURGERY Bilateral LAMINECTOMY LUMBAR SINGLE LEVEL / L4/5 N/A 09/21/2023 Performed by Mynor Steen MD at [facility] POSTERIOR LAMINECTOMY FUSION LUMBAR SINGLE LEVEL / L4/5 N/A 09/21/2023 Performed by Mynor Steen MD at [facility] REPLACEMENT TOTAL KNEE Bilateral ROTATOR CUFF REPAIR [...] SL tablet, Q5M, Disp: , Rfl: omega 0-tvw-jpe-fish oil (Fish OiL) 300-1,000 mg capsule, Take [...] gangrene, with long-term current use of insulin ([facility]) - POCT Hemoglobin A1c Continue current dose [...] injury. Return to clinic: 3 months with INDUSTRIAL ANALYST, and 6 months with me documented in this encounter [facility] 06-10-2024 History of Present illness Narrative Subjective [...] Past Medical History: Diagnosis Date Angina pectoris ([facility]) Anxiety Arthritis osteoarthritis Back pain Cardiomegaly Cataract CHF (congestive heart failure) ([facility]) Coronary artery disease Status post CABG COVID-19 Dental disease crowns Depression Deviated septum Diabetes mellitus type 2, controlled ([facility]) Difficult intravenous access OSEI (dyspnea on exertion) Esophageal stricture Fractures Gallstone GERD (gastroesophageal reflux disease) H/O esophagogastroduodenoscopy dilatation [facility] 10/06/2023 4 stints Hiatal hernia Hyperlipidemia Hypertension Hyponatremia Incontinence of bowel Incontinence of urine 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 Mild cognitive impairment Obesity Obsessive compulsive disorder Peripheral neuropathy Pneumonia PONV (postoperative nausea and vomiting) Pulmonary vascular congestion Salmonella Sleep apnea cpap Urinary retention Visual impairment glasses retinal detatchment Vitamin D deficiency Vitreous hemorrhage ([facility]) Vocal cord granuloma Past Surgical History Past Surgical History: Procedure Laterality Date BACK SURGERY Left Circumferential 09/21/2023 fusion CATARACT EXTRACTION, BILATERAL Bilateral COLONOSCOPY 2012 CORONARY ARTERY BYPASS GRAFT ESOPHAGOGASTRODUODENOSCOPY dilatation EYE SURGERY Bilateral LAMINECTOMY LUMBAR SINGLE LEVEL / L4/5 N/A 09/21/2023 Performed by Mynor Steen MD at [facility] POSTERIOR LAMINECTOMY FUSION LUMBAR SINGLE LEVEL / L4/5 N/A 09/21/2023 Performed by Mynor Steen MD at [facility] REPLACEMENT TOTAL KNEE Bilateral ROTATOR CUFF REPAIR [...] 60 min Stress: Stress Concern Present (04/17/2023) [employer] [place] [employer] - Occupational Stress Questionnaire Feeling of Stress : Rather much Social Connections: Socially Integrated (04/17/2023) Social Connection and Isolation Panel [NHANES] Frequency of Communication with Friends and Family: More than three times a week Frequency of Social Gatherings with Friends and Family: More than three times a week Attends Jewish Services: More than 4 times per year [...] (NITROSTAT) 0.4 MG SL tablet Q5M omega 3-ivy-wpa-fish oil (Fish OiL) 300-1,000 mg capsule Take [...] and low back pain Referred to [facility] ER for eval There are no discontinued medications. There are no Patient Instructions on file for this visit. TERRY Monteiro 06/10/24 1240 documented in this encounter [facility] 06-05-2024 Miscellaneous Notes I called the patient's spouse to see if I should reschedule him for his surgery. She states that Dr. Watts from [facility] informed her that he cannot have surgery due to Cardiology issues for at lease a year or more. documented in this encounter [facility] 06-05-2024 Telephone encounter Note I called the patient's spouse to see if I should reschedule him for his surgery. She states that Dr. Watts from [facility] informed her that he cannot have surgery due to Cardiology issues for at lease a year or more. [facility] 06-02-2024 History of Present illness Narrative Images from the original note were not included. Subjective Patient ID: Tom Khan is a 68 y.o. male who presents for DM Foot Care (Established pt presents for diabetic nail care, and fuv for right foot ulceration. PCP: Dr. Mini RUIZ 03/14/24, A1C: 7.0, BS: 149, SS: 11.5). HPI This is an established patient who returns to clinic for diabetic foot evaluation. Review of Systems Constitutional: Negative for activity change and appetite change. Respiratory: Negative for chest tightness and shortness of breath. Cardiovascular: Positive for leg swelling. Negative for chest pain. Musculoskeletal: Positive for arthralgias. Skin: Negative for color change and wound. Neurological: Positive for numbness. Negative for weakness. Psychiatric/Behavioral: Negative for agitation and behavioral problems. Hematological: Does not bruise/bleed easily. Endocrine: Negative for cold intolerance and heat intolerance. Allergic/Immunologic: Negative for immunocompromised state. Past medical History Past Medical History: Diagnosis Date CAD (coronary artery disease) ([facility]) Depression ([facility]) Diabetes ([facility]) TypeII HTN (hypertension) ([facility]) Medications Current Outpatient Medications: atorvastatin (Lipitor) 80 MG tablet, 80 mg, Disp: , Rfl: busPIRone HCl (BUSPAR PO), BuSpar, Disp: , Rfl: carvedilol (Coreg) 12.5 MG tablet, Take 12.5 mg by mouth in the morning and 12.5 mg in the evening., Disp: , Rfl: DULoxetine (Cymbalta) [address] capsule, Take 30 mg by mouth in the morning., Disp: , Rfl: gentamicin (Garamycin) 0.1 % ointment, Apply to wound once daily., Disp: 30 g, Rfl: 0 Insulin Lispro 100 UNIT/ML solution, Inject under the skin 3 (three) times a day with meals., Disp: , Rfl: labetalol (Normodyne) 200 MG tablet, Take 1 tablet by mouth in the morning and 1 tablet before bedtime., Disp: , Rfl: LORazepam (Ativan) 0.5 MG tablet, Take 0.5 mg by mouth every 6 (six) hours if needed., Disp: , Rfl: LORazepam 1 MG/0.5ML concentration, LORazepam, Disp: , Rfl: losartan (Cozaar) 25 MG tablet, Take 25 mg by mouth in the morning., Disp: , Rfl: Melatonin 1 MG capsule, Melatonin, Disp: , Rfl: nitroglycerin (Nitrostat) 0.4 MG SL tablet, every 5 (five) minutes if needed, Disp: , Rfl: semaglutide (Ozempic, 0.25 or 0.5 MG/DOSE,) 2 MG/1.5ML solution pen-injector, Ozempic, Disp: , Rfl: sildenafil (Viagra) 50 MG tablet, Take 50 mg by mouth Daily as needed., Disp: , Rfl: tamsulosin (Flomax) 0.4 MG 24 hr capsule, Take 0.4 mg by mouth at bedtime, Disp: , Rfl: ticagrelor (Brilinta) 90 MG tablet, Twice daily, Disp: , Rfl: Toujeo Max SoloStar 300 UNIT/ML injection, Inject 66 Units under the skin in the morning., Disp: , Rfl: traZODone (Desyrel) 50 MG tablet, traZODone HCl, Disp: , Rfl: ammonium lactate (Amlactin) 12 % cream, Apply topically Daily, Disp: 140 g, Rfl: 3 Allergies Patient has no known allergies. Past Surgical History Past Surgical History: Procedure Laterality Date CATARACT EXTRACTION Bilateral CORONARY ANGIOPLASTY WITH STENT PLACEMENT 10/06/2023 CORONARY ARTERY BYPASS GRAFT CORONARY ARTERY BYPASS GRAFT KNEE ARTHROSCOPY W/ DEBRIDEMENT Bilateral LAMINECTOMY 09/05/2023 SEPTOPLASTY SHOULDER ARTHROSCOPY Left TOTAL KNEE ARTHROPLASTY Right 04/2020 TOTAL KNEE ARTHROPLASTY Left Family History Family History Problem Relation Name Age of Onset Diabetes Mother Stroke Mother Congenital heart disease Father Mental illness Other Hypertension Other Objective Physical Exam Constitutional: General: He is not in acute distress. Cardiovascular: Comments: DP pulse: 2/4 PT pulse: 2/4 Skin temperature is warm to warm Edema: +1 pitting bilaterally. Multiple telangiectasias and varicosities bilaterally. Pulmonary: Effort: Pulmonary effort is normal. No respiratory distress. Musculoskeletal: Cervical back: Neck supple. No rigidity. Comments: Pedal deformities: Pes planus morphology with multiple hammertoe contractures bilaterally. Skin: Capillary Refill: Capillary refill takes 2 to 3 seconds. Comments: 7 toenails exhibit clinical mycosis with thickened appearance, yellow/brown discoloration, crumbly texture, subungual debris. All 10 toenails are elongated. Hyperkeratotic tissue: Left foot: Plantar, proximal foot just distal to the calcaneal tuber medially. Right foot: Plantar 2nd metatarsal, plantar midfoot at previous ulcerative site. Skin is diffusely thin. Neurological: Mental Status: He is alert. Comments: Protective sensation intact at 3/10 pedal sites Vibratory sensation diminished at the 1st MTP bilaterally. Psychiatric: Mood and Affect: Mood normal. Behavior: Behavior normal. Assessment/Plan ICD-10-CM 1. Diabetic polyneuropathy associated with type 2 diabetes mellitus (CMS/HCC) E11.42 2. Corns and callosities L84 ammonium lactate (Amlactin) 12 % cream 3. Dystrophic nail L60.3 4. Dermatophytosis of nail B35.1 Patient was examined and evaluated. 10 toenails were debrided in length and thickness today utilizing a nail nipper and electric bur profile grinder technician without incident. A sterile #15 blade was utilized to reduce all hyperkeratotic tissue without incident and to patient's satisfaction. I have discussed the importance of daily foot examinations and tight blood sugar control. Ulcerations remain healed. Recommend ammonium lactate cream applications to the hyperkeratotic regions daily. This will also help reinforced daily foot inspections. Prescription for ammonium lactate was sent to his pharmacy. We will follow up in 3 months for at risk diabetic foot evaluation. He will call sooner with any issues or concerns. This note was created with the assistance of a speech recognition program. While intending to generate a timely document that accurately reflects the content of the visit, no guarantee can be provided that every grammatical or spelling mistake has been or will be identified or corrected. Thank you for your understanding. Mc Chatman DPM documented in this encounter [facility] 05-21-2024 Miscellaneous Notes Patient Notified of Surgery Dates and Times via telephone Call to patient's spouse. Pre-Admission Testing is scheduled at [facility] on: 06/09/24 @ 10:45am Surgery is Scheduled at [facility] on: 06/23/24 @ 9:45am Post Op is scheduled on: 07/03/24 @ 1pm documented in this encounter [facility] 05-21-2024 Telephone encounter Note Patient Notified of Surgery Dates and Times via telephone Call to patient's spouse. Pre-Admission Testing is scheduled at [facility] on: 06/09/24 @ 10:45am Surgery is Scheduled at [facility] on: 06/23/24 @ 9:45am Post Op is scheduled on: 07/03/24 @ 1pm [facility] 05-20-2024 Miscellaneous Notes Pts lvm. Pt having abd pain and increased anxiety. Had to reschedule gallbladder sx d/t infection. Working on diet control for symptoms but wanting to know if we can do anything for pain. Please advise. Nothing we can do from primary care standpoint. Only thing I can suggest is ER if abd pain gets too bad. notified at her appt earlier this week. documented in this encounter [facility] 05-20-2024 Telephone encounter Note Pts lvm. Pt having abd pain and increased anxiety. Had to reschedule gallbladder sx d/t infection. Working on diet control for symptoms but wanting to know if we can do anything for pain. Please advise. [facility] 05-20-2024 Telephone encounter Note Nothing we can do from primary care standpoint. Only thing I can suggest is ER if abd pain gets too bad. [facility] 05-20-2024 Telephone encounter Note notified at her appt earlier this week. [facility] 05-19-2024 History of Present illness Narrative Images from the original note were not included. Subjective Patient ID: Tom Khan is a 68 y.o. male who presents for Foot Wound Check ( Tom Khan is a 68 y.o. male who presents for Wound Check Right foot. Patient relates he stopped wearing surgical shoe 2 weeks ago. Patient stopped dressing 1 week ago. PCP: Dr. Mini RUIZ 03/14/24, A1C: 7.0, BS: 130, SS: 11.5). HPI Established patient returns to clinic for follow up evaluation of right foot ulceration, right foot foreign body puncture. Puncture site has healed. He has not noticed any drainage from the midfoot ulcerative area. He has not been putting a dressing on the area. He has been walking 2 miles a day for exercise. Review of Systems Constitutional: Negative for activity change and appetite change. Respiratory: Negative for chest tightness and shortness of breath. Cardiovascular: Positive for leg swelling. Negative for chest pain. Musculoskeletal: Positive for arthralgias. Skin: Negative for color change and wound. Neurological: Positive for numbness. Negative for weakness. Psychiatric/Behavioral: Negative for agitation and behavioral problems. Hematological: Does not bruise/bleed easily. Endocrine: Negative for cold intolerance and heat intolerance. Allergic/Immunologic: Negative for immunocompromised state. Past medical History Past Medical History: Diagnosis Date CAD (coronary artery disease) ([facility]) Depression ([facility]) Diabetes ([facility]) TypeII HTN (hypertension) ([facility]) Medications Current Outpatient Medications: atorvastatin (Lipitor) 80 MG tablet, 80 mg, Disp: , Rfl: busPIRone HCl (BUSPAR PO), BuSpar, Disp: , Rfl: carvedilol (Coreg) 12.5 MG tablet, Take 12.5 mg by mouth in the morning and 12.5 mg in the evening., Disp: , Rfl: DULoxetine (Cymbalta) [address] capsule, Take 30 mg by mouth in the morning., Disp: , Rfl: gentamicin (Garamycin) 0.1 % ointment, Apply to wound once daily., Disp: 30 g, Rfl: 0 Insulin Lispro 100 UNIT/ML solution, Inject under the skin 3 (three) times a day with meals., Disp: , Rfl: labetalol (Normodyne) 200 MG tablet, Take 1 tablet by mouth in the morning and 1 tablet before bedtime., Disp: , Rfl: LORazepam (Ativan) 0.5 MG tablet, Take 0.5 mg by mouth every 6 (six) hours if needed., Disp: , Rfl: LORazepam 1 MG/0.5ML concentration, LORazepam, Disp: , Rfl: losartan (Cozaar) 25 MG tablet, Take 25 mg by mouth in the morning., Disp: , Rfl: Melatonin 1 MG capsule, Melatonin, Disp: , Rfl: nitroglycerin (Nitrostat) 0.4 MG SL tablet, every 5 (five) minutes if needed, Disp: , Rfl: semaglutide (Ozempic, 0.25 or 0.5 MG/DOSE,) 2 MG/1.5ML solution pen-injector, Ozempic, Disp: , Rfl: sildenafil (Viagra) 50 MG tablet, Take 50 mg by mouth Daily as needed., Disp: , Rfl: tamsulosin (Flomax) 0.4 MG 24 hr capsule, Take 0.4 mg by mouth at bedtime, Disp: , Rfl: ticagrelor (Brilinta) 90 MG tablet, Twice daily, Disp: , Rfl: Toujeo Max SoloStar 300 UNIT/ML injection, Inject 66 Units under the skin in the morning., Disp: , Rfl: traZODone (Desyrel) 50 MG tablet, traZODone HCl, Disp: , Rfl: Allergies Patient has no known allergies. Past Surgical History Past Surgical History: Procedure Laterality Date CATARACT EXTRACTION Bilateral CORONARY ANGIOPLASTY WITH STENT PLACEMENT 10/06/2023 CORONARY ARTERY BYPASS GRAFT CORONARY ARTERY BYPASS GRAFT KNEE ARTHROSCOPY W/ DEBRIDEMENT Bilateral LAMINECTOMY 09/05/2023 SEPTOPLASTY SHOULDER ARTHROSCOPY Left TOTAL KNEE ARTHROPLASTY Right 04/2020 TOTAL KNEE ARTHROPLASTY Left Family History Family History Problem Relation Name Age of Onset Diabetes Mother Stroke Mother Congenital heart disease Father Mental illness Other Hypertension Other Objective Physical Exam Constitutional: General: He is not in acute distress. Comments: Presents to clinic ambulating unassisted in tennis shoes. Flat affect. Cardiovascular: Comments: DP pulse: 2/4 PT pulse: 2/4 Skin temperature is warm to warm Edema: +1 pitting bilaterally. Multiple telangiectasias and varicosities bilaterally. Pulmonary: Effort: Pulmonary effort is normal. No respiratory distress. Musculoskeletal: Cervical back: Neck supple. No rigidity. Comments: Pedal deformities: Pes planus morphology with multiple hammertoe contractures bilaterally. Skin: Capillary Refill: Capillary refill takes less than 2 seconds. Comments: Foreign body puncture site remains healed. Ulcer #1 Ulcer location: Plantar midfoot, right Ulcer size: 05/19/2024: Epithelialized 05/01/2024: 0.2 x 0.2 x 0.2 cm 04/18/2024: 0.4 x 0.2 x 0.1 cm 04/11/2024: 1 x 0.9 x 0.3 cm 04/07/2024: 1 x 0.9 x 0.3 cm Other characteristics: Previous wound covered with stable eschar. No drainage, cellulitis. Well adhered without surrounding erythema, drainage. Neurological: Mental Status: He is alert. Comments: Protective sensation intact at 3/10 pedal sites Vibratory sensation diminished at the 1st MTP bilaterally. Psychiatric: Mood and Affect: Mood normal. Behavior: Behavior normal. Assessment/Plan ICD-10-CM 1. Diabetic polyneuropathy associated with type 2 diabetes mellitus (CMS/HCC) E11.42 2. Corns and callosities L84 Patient examined and evaluated. Foreign body puncture site remains healed. Midfoot wound also appears to be healed. Eschar not debrided today given its stable appearance. I recommend applying lotion to the area daily and covering the eschar with a dry bandage to avoid disturbing it and to protect the recently healed skin. He has a diabetic foot checks scheduled with me in 2 weeks and we will follow up with him at that time. This not was created using assistance of a speech recognition program. While intending to generate a timely document that accurately reflects the content of the visit, no guarantee can be provided that every grammatical or spelling mistake has been or will be identified or corrected. Thank you for your understanding. Mc Chatman DPM documented in this encounter [facility] 05-01-2024 History of Present illness Narrative Images from the original note were not included. Subjective Patient ID: Tom Khan is a 68 y.o. male who presents for Wound Check ( Tom Khan is a 68 y.o. male, Dr. Mc Chatman patient, Established pt presents today for wound check, right foot. Pt continues daily with gentamicin ointment, and stopped wearing surgical shoe 2 weeks ago. Relates right ankle stiffness started 2 weeks ago. NKI. PCP: Dr. Morse LV 03/14/24, A1C: 7.0, BS: 284, SS: 11.5).). HPI Established patient returns to clinic for follow up evaluation of right foot foreign body puncture wound, ulceration. He states he discontinued the surgical shoe 2 weeks ago. They have continued to use the ointment on the mid foot wound. He is unsure if they are still open. He completed the oral antibiotics Dr. Mc Chatman prescribed him. He is currently on more oral antibiotics for dental issues. He is walking 2 miles a day for exercise Review of Systems Constitutional: Negative for activity change and appetite change. Respiratory: Negative for chest tightness and shortness of breath. Cardiovascular: Positive for leg swelling. Negative for chest pain. Musculoskeletal: Positive for arthralgias. Skin: Negative for color change and wound. Neurological: Positive for numbness. Negative for weakness. Psychiatric/Behavioral: Negative for agitation and behavioral problems. Hematological: Does not bruise/bleed easily. Endocrine: Negative for cold intolerance and heat intolerance. Allergic/Immunologic: Negative for immunocompromised state. Past medical History Past Medical History: Diagnosis Date CAD (coronary artery disease) (CMS/HCC) Depression (CMS/HCC) Diabetes (CMS/HCC) TypeII HTN (hypertension) ([facility]) Medications Current Outpatient Medications: atorvastatin (Lipitor) 80 MG tablet, 80 mg, Disp: , Rfl: busPIRone HCl (BUSPAR PO), BuSpar, Disp: , Rfl: carvedilol (Coreg) 12.5 MG tablet, Take 12.5 mg by mouth in the morning and 12.5 mg in the evening., Disp: , Rfl: DULoxetine (Cymbalta) [address] capsule, Take 30 mg by mouth in the morning., Disp: , Rfl: gentamicin (Garamycin) 0.1 % ointment, Apply to wound once daily., Disp: 30 g, Rfl: 0 Insulin Lispro 100 UNIT/ML solution, Inject under the skin 3 (three) times a day with meals., Disp: , Rfl: labetalol (Normodyne) 200 MG tablet, Take 1 tablet by mouth in the morning and 1 tablet before bedtime., Disp: , Rfl: LORazepam (Ativan) 0.5 MG tablet, Take 0.5 mg by mouth every 6 (six) hours if needed., Disp: , Rfl: LORazepam 1 MG/0.5ML concentration, LORazepam, Disp: , Rfl: losartan (Cozaar) 25 MG tablet, Take 25 mg by mouth in the morning., Disp: , Rfl: Melatonin 1 MG capsule, Melatonin, Disp: , Rfl: nitroglycerin (Nitrostat) 0.4 MG SL tablet, every 5 (five) minutes if needed, Disp: , Rfl: semaglutide (Ozempic, 0.25 or 0.5 MG/DOSE,) 2 MG/1.5ML solution pen-injector, Ozempic, Disp: , Rfl: sildenafil (Viagra) 50 MG tablet, Take 50 mg by mouth Daily as needed., Disp: , Rfl: tamsulosin (Flomax) 0.4 MG 24 hr capsule, Take 0.4 mg by mouth at bedtime, Disp: , Rfl: ticagrelor (Brilinta) 90 MG tablet, Twice daily, Disp: , Rfl: Toujeo Max SoloStar 300 UNIT/ML injection, Inject 66 Units under the skin in the morning., Disp: , Rfl: traZODone (Desyrel) 50 MG tablet, traZODone HCl, Disp: , Rfl: Allergies Patient has no known allergies. Past Surgical History Past Surgical History: Procedure Laterality Date CATARACT EXTRACTION Bilateral CORONARY ANGIOPLASTY WITH STENT PLACEMENT 10/06/2023 CORONARY ARTERY BYPASS GRAFT CORONARY ARTERY BYPASS GRAFT KNEE ARTHROSCOPY W/ DEBRIDEMENT Bilateral LAMINECTOMY 09/05/2023 SEPTOPLASTY SHOULDER ARTHROSCOPY Left TOTAL KNEE ARTHROPLASTY Right 04/2020 TOTAL KNEE ARTHROPLASTY Left Family History Family History Problem Relation Name Age of Onset Diabetes Mother Stroke Mother Congenital heart disease Father Mental illness Other Hypertension Other Objective Physical Exam Constitutional: General: He is not in acute distress. Comments: Presents to clinic ambulating unassisted in tennis shoes. Accompanied by his . Cardiovascular: Comments: DP pulse: 2/4 PT pulse: 2/4 Skin temperature is warm to warm Edema: +1 pitting bilaterally. Multiple telangiectasias and varicosities bilaterally. Pulmonary: Effort: Pulmonary effort is normal. No respiratory distress. Musculoskeletal: Cervical back: Neck supple. No rigidity. Comments: Pedal deformities: Pes planus morphology with multiple hammertoe contractures bilaterally. Skin: Capillary Refill: Capillary refill takes less than 2 seconds. Comments: Ulcer #1 Ulcer location: Plantar 1st MTP, right Ulcer size: 04/18/2024: Healed 04/11/2024: 0.2 x 0.2 x 0.2 cm 04/07/2024: 0.2 x 0.2 x 0.4 cm Other characteristics: Cellulitis has resolved, residual mild dull erythema present with surrounding peeling skin Ulcer #2 Ulcer location: Plantar midfoot, right Ulcer size: 05/01/2024: 0.2 x 0.2 x 0.2 cm 04/18/2024: 0.4 x 0.2 x 0.1 cm 04/11/2024: 1 x 0.9 x 0.3 cm 04/07/2024: 1 x 0.9 x 0.3 cm Other characteristics: Wound bed is fibrous, no surrounding erythema. With debridement, good healthy tissue is present. No probing or undermining. Neurological: Mental Status: He is alert. Comments: Protective sensation intact at 3/10 pedal sites Vibratory sensation diminished at the 1st MTP bilaterally. Psychiatric: Mood and Affect: Mood normal. Behavior: Behavior normal. Assessment/Plan ICD-10-CM 1. Diabetic polyneuropathy associated with type 2 diabetes mellitus ([facility]) E11.42 2. Ulcer of right foot with fat layer exposed ([facility]) L97.512 3. Cellulitis of right foot L03.115 Patient was examined and evaluated. Reviewed that the cellulitis the right 1st MTPJ is resolving. He is to continuing to monitor this area. No further signs of cellulitis of the plantar mid foot. The plantar mid foot ulceration was covered with hyperkeratotic tissue. With debridement of this, an open ulceration is still noted. Recommended offloading his tennis shoe as he does not want to return to the surgical shoe as it was causing ankle pain. The right liner of the shoe was offloaded. Full thickness ulcer debridement completed. Sharp, excisional, active debridement carried out by me. Selectively removing all devitalized and nonviable tissue including epidermal, dermal and deep sub q tissue. Yellow protein build up and bioburden also debrided. Instrumentation used includes tissue nipper, curette, and #15 surgical blade. No pus encountered. No deep tract formation. No exposed bone noted. Bleeding encountered with debridement. No anesthesia required due to neuropathy. DSD with antibiotic ointment applied. Pt instructed to change daily with gentamicin ointment. Follow up 2-3 weeks. If still open will discontinue walking for exercise. This not was created using assistance of a speech recognition program. While intending to generate a timely document that accurately reflects the content of the visit, no guarantee can be provided that every grammatical or spelling mistake has been or will be identified or corrected. Thank you for your understanding. Nini Leos DPM documented in this encounter [facility] 04-14-2024 Miscellaneous Notes Patient's spouse called and cancelled the patient's Lap Summer. The patient is diabetic and has a foot infection. documented in this encounter [facility] 04-14-2024 Telephone encounter Note Patient's spouse called and cancelled the patient's Lap Summer. The patient is diabetic and has a foot infection. [facility] 04-04-2024 Miscellaneous Notes Patient Notified of Surgery Dates and Times via telephone Pre-Admission Testing is scheduled at [facility] on:04/28/24 @ 10:45am Surgery is Scheduled at [facility] on: 05/12/24 @ 7:30am Post Op is scheduled on: 05/22/24 @ 1pm documented in this encounter [facility] 04-04-2024 Telephone encounter Note Patient Notified of Surgery Dates and Times via telephone Pre-Admission Testing is scheduled at [facility] on:04/28/24 @ 10:45am Surgery is Scheduled at [facility] on: 05/12/24 @ 7:30am Post Op is scheduled on: 05/22/24 @ 1pm [facility] 04-03-2024 History of Present illness Narrative Images from the original note were not included. CHIEF COMPLAINT: abdominal pain. History of Present Illness: Tom Khan is a 68 y.o. male who is having some abdominal pain who has generalized abdominal pain for the last 6 months and has gotten a little worse recently. It is crampy and burning and on the right and left side. It is worse after he eats. It is better when he drinks water and exercises. It get up to a 5 out of 10. He often feels nauseated when he gets the pain. He is having constipation recently. He is having some incidents of incontinence of stool. He had major back surgery in September. He then had a heart attack in October and has 4 stents. His design consultant is [facility] in [place] and Dr Watts did the stent. He takes Ozempic and has been on it for 2 years or more. The patient has OCD and a lot of anxiety. The states that he has some significant cognitive decline. Past Medical History: Diagnosis Date Angina pectoris ([facility]) Anxiety Arthritis osteoarthritis Back pain Cardiomegaly Cataract CHF (congestive heart failure) ([facility]) Coronary artery disease Status post CABG COVID-19 Dental disease crowns Depression Deviated septum Diabetes mellitus type 2, controlled ([facility] Difficult intravenous access OSEI (dyspnea on exertion) Esophageal stricture Fractures Gallstone GERD (gastroesophageal reflux disease) H/O esophagogastroduodenoscopy dilatation Heart attack ([facility]) 10/06/2023 4 stints Hiatal hernia Hyperlipidemia Hypertension Hyponatremia Incontinence of bowel Incontinence of urine 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 Mild cognitive impairment Obesity Obsessive compulsive disorder Peripheral neuropathy Pneumonia PONV (postoperative nausea and vomiting) Pulmonary vascular congestion Salmonella Sleep apnea cpap Urinary retention Visual impairment glasses retinal detatchment Vitamin D deficiency Vitreous hemorrhage ([facility]) Vocal cord granuloma Patient Active Problem List Diagnosis Type 2 diabetes mellitus with diabetic peripheral angiopathy without gangrene, with long-term current use of insulin ([facility]) Vitamin D deficiency Vocal cord granuloma Obstructive sleep apnea syndrome Cataract, nuclear sclerotic senile, right S/P total knee arthroplasty, right Retinal detachment Pseudophakia Primary osteoarthritis of right knee Obesity, Class II, BMI 35-39.9 MCI (mild cognitive impairment) Primary hypertension Mixed hyperlipidemia Mixed anxiety and depressive disorder Obsessive-compulsive disorder Autonomic neuropathy due to type 2 diabetes mellitus ([facility]) Coronary arteriosclerosis Complaint of paresthesia Moderate episode of recurrent major depressive disorder ([facility]) Chronic diastolic CHF (congestive heart failure) ([facility]) Fatigue Back pain Lower extremity weakness Diabetes mellitus ([facility]) Esophageal reflux CAD, multiple vessel Hyperlipidemia Obesity (BMI 30-39.9) Depression Hypertension Acute [place] ([facility]) ST elevation myocardial infarction (STEMI) of inferior wall ([facility]) Constipation Spinal stenosis at L4-L5 level Urinary retention Gallstones Past Surgical History: Procedure Laterality Date BACK SURGERY Left Circumferential 09/21/2023 fusion CATARACT EXTRACTION, BILATERAL Bilateral COLONOSCOPY 2012 CORONARY ARTERY BYPASS GRAFT ESOPHAGOGASTRODUODENOSCOPY dilatation EYE SURGERY Bilateral LAMINECTOMY LUMBAR SINGLE LEVEL / L4/5 N/A 09/21/2023 Performed by Mynor Steen MD at [facility] POSTERIOR LAMINECTOMY FUSION LUMBAR SINGLE LEVEL / L4/5 N/A 09/21/2023 Performed by Mynor Steen MD at [facility] REPLACEMENT TOTAL KNEE Bilateral ROTATOR CUFF REPAIR SEPTOPLASTY No Known Allergies Current Outpatient Medications: acetaminophen (TYLENOL EXTRA STRENGTH) [...] mouth in the morning., Disp: , Rfl: cyanocobalamin 1000 MCG tablet, Take 1 tablet (1,000 mcg total) by mouth in the morning., Disp: 90 tablet, Rfl: 3 DULoxetine (CYMBALTA) 30 mg capsule, TAKE 1 CAPSULE BY MOUTH EVERY DAY, Disp: , Rfl: DULoxetine (CYMBALTA) 60 mg capsule, Take 90 mg by mouth in the morning. 90 mg in morning ., Disp: , Rfl: empagliflozin (JARDIANCE ORAL), Take [...] SL tablet, Q5M, Disp: , Rfl: omega 3-vfc-wou-fish oil (Fish OiL) 300-1,000 mg capsule, Take by mouth., Disp: , Rfl: polyethylene glycol (GLYCOLAX) 17 gram packet, Take 17 g by mouth in the morning. (Patient taking differently: Take 17 g by mouth as needed.), Disp: , Rfl: semaglutide (OZEMPIC) 0.25 mg or 0.5 mg (2 mg/3 mL) pen injector, Inject 0.5 mg under the skin every 7 days. 0.5 mg subQ weekly for 4 weeks then increase to 1 mg weekly for 4 weeks, then increase to 2 mg weekly., Disp: 3 mL, Rfl: 0 semaglutide (OZEMPIC) 2 mg/dose (8 mg/3 mL) pen injector, Inject 2 mg under the skin every 7 days., Disp: 9 mL, Rfl: 3 spironolactone (ALDACTONE) 25 mg tablet, Daily, Disp: , Rfl: traZODone (DESYREL) 100 mg tablet, Take 1 tablet (100 mg total) by mouth nightly as needed., Disp: , Rfl: Social History Socioeconomic History Marital status: Spouse [...] very hard Food Insecurity: No Food Insecurity (03/14/2024) Hunger Screening Food Insecurity - Worry: Never True Food Insecurity - Inability: Never True Transportation Needs: No Transportation Needs (04/17/2023) PRAPARE - Transportation Lack of Transportation (Medical): No Lack of Transportation (Non-Medical): No Physical Activity: Sufficiently Active (04/17/2023) Exercise Vital Sign Days of Exercise per Week: 4 days Minutes of Exercise per Session: 60 min Stress: Stress Concern Present (04/17/2023) [employer] [place] [employer] - Occupational Stress Questionnaire Feeling of Stress : Rather much Social Connections: Socially Integrated (04/17/2023) Social Connection and Isolation Panel [NHANES] Frequency of Communication with Friends and Family: More than three times a week Frequency of Social Gatherings with Friends and Family: More than three times a week Attends Jewish Services: More than 4 times per year Active Member of Clubs or Organizations: Yes Attends Club or Organization Meetings: Never Marital Status: Interpersonal Safety: Not At Risk (04/17/2023) Humiliation, Afraid, Rape, and Kick questionnaire Fear of Current or Ex-Partner: No Emotionally Abused: No Physically Abused: No Sexually Abused: No Housing Instability: Low Risk (04/17/2023) Housing Instability Housing Instability: No Family History Problem Relation Age of Onset Diabetes Mother Hypertension Mother Heart disease Father Hyperlipidemia Father Hypertension Father Review of Systems Constitutional: Negative for fever, chills, diaphoresis, appetite change, fatigue and unexpected weight change. HENT: Negative for congestion, nosebleeds, sore throat and trouble swallowing. Respiratory: Negative for cough, shortness of breath and wheezing. Cardiovascular: Negative for chest pain, palpitations and leg swelling. Gastrointestinal: Positive for nausea, abdominal pain, constipation and abdominal distention. Negative for vomiting, diarrhea, blood in stool, anal bleeding and rectal pain. Endocrine: Negative for cold intolerance, heat intolerance and polyuria. Genitourinary: Negative for dysuria, urgency, frequency, hematuria, flank pain and difficulty urinating. Musculoskeletal: Negative for myalgias, back pain, joint swelling, arthralgias and gait problem. Skin: Negative for color change, rash and wound. Neurological: Negative for dizziness, seizures, weakness, light-headedness, headaches and tremors. Hematological: Negative for adenopathy. Does not bruise/bleed easily. Psychiatric/Behavioral: Positive for confusion. Negative for hallucinations, sleep disturbance and suicidal ideas. The patient is hyperactive. The patient is not nervous/anxious. All other systems reviewed and are negative. Physical Exam Constitutional He is oriented to person, place, and time. He appears well-developed and well-nourished. No distress. HENT Head Normocephalic and atraumatic. Ears Right Ear: External ear normal. Left Ear: External ear normal. Nose Nose normal. Mouth/Throat Throat: Oropharynx: oropharynx clear and moist Oropharynx negative for exudate. Eyes: Conjunctivae and EOM are normal. Pupils are equal, round, and reactive to light. Conjunctiva: Negative for scleral icterus. Neck Normal range of motion. Neck supple. No stridor and no tracheal deviation present. Negative for thyromegaly. Cardiovascular: Regular rhythm. No murmur heard. Heart Sounds: normal heart sounds. no JVDno friction rub and no gallop Pulmonary/Chest: Effort normal and breath sounds normal. He has no wheezes. He has no rales. He exhibits no tenderness. No stridor. No respiratory distress. Abdominal: Bowel sounds are normal. He exhibits no distension and no mass. Soft. There is no hepatosplenomegaly. There is no abdominal tenderness. There is no rigidity, no rebound, no guarding, no CVA tenderness, no tenderness at McBurney's point and negative Orozco's sign. A hernia is present. Hernia confirmed positive in the ventral area. Small umbilical hernia reducible Musculoskeletal: General: No tenderness or edema. Normal range of motion. Cervical back: Normal range of motion and neck supple. Lymph Head (right side): No submandibular, no preauricular and no posterior auricular adenopathy present. cervical adenopathy not present Right cervical: No supraclavicular and no cervical adenopathy present. Left cervical: No supraclavicular and no cervical adenopathy present. Right axillary: No lateral adenopathy present. Left axillary: No lateral adenopathy present. Neurological He is alert and oriented to person, place, and time. He has normal strength. No cranial nerve deficit. He exhibits normal muscle tone. Coordination normal. Strength: normal strength Skin: Skin is warm and dry. No rash noted. He is not diaphoretic. Psychiatric: He has a normal mood and affect. His behavior is normal. Judgment and thought content normal. Vital Signs: There were no vitals taken for this visit. Respiratory Source: No data recorded Admission Weight: Labs: Lab Results Component Value Date WBC 6.7 11/16/2023 HGB 14.3 11/16/2023 HCT 43.0 11/16/2023 MCV 90 11/16/2023 PLT 290 11/16/2023 Lab Results Component Value Date GLU 129 (H) 11/16/2023 CALCIUM 9.7 11/16/2023 K 4.3 11/16/2023 CO2 26 11/16/2023 CL 105 11/16/2023 BUN 25 11/16/2023 CREATININE 0.85 11/16/2023 Lab Results Component Value Date LIPASE 42 06/11/2023 Lab Results Component Value Date ALT 38 11/16/2023 AST 23 11/16/2023 ALKPHOS 56 11/16/2023 Lab Results Component Value Date INR 1.0 09/20/2023 PROTIME 12.0 09/20/2023 Imaging: Clinical history: Right upper quadrant pain Findings: [...] A Ware MD on 11/16/2023 4:14 PM NM HEPATOBILIARY SYS IMAGING W PHARMACOLOGIC AGENT: [...] Vignesh Cormier MD on 12/06/2023 9:34 AM Assessment: Tom Khan is a 68 y.o.male with Problem List Items Addressed This Visit Digestive Gallstones - Primary (Chronic) Plan: Will need cardiac clearance and be off his plavix and ASA 5 days before the surgery. He will need to hold his Ozempic for 1 week and Jardiance for 3 days. Davinci laparoscopic cholecystectomy with ICG through the IV in the preop holding area. I have reviewed the patients outside chart notes, imaging including Ultrasound and HIDA scan and independently interpreted these. Thank you for allowing me to participate in the care of your patient. Please feel free to contact me with any questions or concerns. - Vanessa Prabhakar MD 04/04/24 11:36 AM documented in this encounter [facility] 03-24-2024 Miscellaneous Notes Pharmacy requesting to change to 1 tablet for 1,000mcg documented in this encounter [facility] 03-24-2024 Telephone encounter Note Pharmacy requesting to change to 1 tablet for 1,000mcg [facility] 03-19-2024 Miscellaneous Notes Pt called for abd test results. Please review. Show moderate stool burden. Would start capful daily miralax until having regular BMs Patient notified and verbalized understanding. documented in this encounter [facility] 03-19-2024 Telephone encounter Note Pt called for abd test results. Please review. [facility] 03-19-2024 Telephone encounter Note Show moderate stool burden. Would start capful daily miralax until having regular BMs [facility] 03-19-2024 Telephone encounter Note Patient notified and verbalized understanding. [facility] 03-14-2024 History of Present illness Narrative Subjective Patient ID: Tom Khan is a 68 y.o. male. Chief Complaint Chief Complaint Patient presents with Follow-up Stopped atorvastatin on own 03/05/2024 d/t possible SE, needs B12 refill, stomach ache issues/anxiety/OCD HPI HPI Generalized abd pain, constipation Intermittent. Not clearly correlated with post prandial state Recently started on GLP-1 Stopped atorvastatin on his own, thinking it was culprit. Advised to restart. And more likely related to constipation vs GLP1 vs symptomatic gallstones Known gallstones. Neg HIDA. He had cardiac stents placed earlier this year, on DAPT Past Medical History Past Medical History: Diagnosis Date Angina pectoris ([facility] Anxiety Arthritis osteoarthritis Back pain Cardiomegaly Cataract CHF (congestive heart failure) ([facility]) Coronary artery disease Status post CABG COVID-19 Dental disease crowns Depression Deviated septum Diabetes mellitus type 2, controlled ([facility]) Difficult intravenous access OSEI (dyspnea on exertion) Esophageal stricture Fractures Gallstone GERD (gastroesophageal reflux disease) H/O esophagogastroduodenoscopy dilatation Heart attack ([facility]) 10/06/2023 4 stints Hiatal hernia Hyperlipidemia Hypertension Hyponatremia Incontinence of bowel Incontinence of urine 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 Mild cognitive impairment Obesity Obsessive compulsive disorder Peripheral neuropathy Pneumonia PONV (postoperative nausea and vomiting) Pulmonary vascular congestion Salmonella Sleep apnea cpap Urinary retention Visual impairment glasses retinal detatchment Vitamin D deficiency Vitreous hemorrhage ([facility]) Vocal cord granuloma Past Surgical History Past Surgical History: Procedure Laterality Date BACK SURGERY Left Circumferential 09/21/2023 fusion CATARACT EXTRACTION, BILATERAL Bilateral COLONOSCOPY 2012 CORONARY ARTERY BYPASS GRAFT ESOPHAGOGASTRODUODENOSCOPY dilatation EYE SURGERY Bilateral LAMINECTOMY LUMBAR SINGLE LEVEL / L4/5 N/A 09/21/2023 Performed by Mynor Steen MD at [facility] POST[facility] LAMINECTOMY FUSION LUMBAR SINGLE LEVEL / L4/5 N/A 09/21/2023 Performed by Mynor Steen MD at [facility] REPLACEMENT TOTAL KNEE Bilateral ROTATOR CUFF REPAIR [...] very hard Food Insecurity: No Food Insecurity (03/14/2024) Hunger Screening Food Insecurity - Worry: Never True Food Insecurity - Inability: Never True Transportation Needs: No Transportation Needs (04/17/2023) PRAPARE - Transportation Lack of Transportation (Medical): No Lack of Transportation (Non-Medical): No Physical Activity: Sufficiently Active (04/17/2023) Exercise Vital Sign Days of Exercise per Week: 4 days Minutes of Exercise per Session: 60 min Stress: Stress Concern Present (04/17/2023) [employer] [place] [employer] - Occupational Stress Questionnaire Feeling of Stress : Rather much Social Connections: Socially Integrated (04/17/2023) Social Connection and Isolation Panel [NHANES] Frequency of Communication with Friends and Family: More than three times a week Frequency of Social Gatherings with Friends and Family: More than three times a week Attends Jewish Services: More than 4 times per year [...] Every 8 hours aspirin 81 mg Daily carvediloL (COREG) 12.5 mg tablet Take 1 tablet (12.5 mg total) by mouth in the morning and 1 tablet (12.5 mg total) before bedtime. 180 tablet 1 clopidogreL (PLAVIX) 75 mg tablet Take 1 tablet (75 mg total) by mouth in the morning. DULoxetine (CYMBALTA) 30 mg capsule TAKE 1 CAPSULE BY MOUTH EVERY DAY DULoxetine (CYMBALTA) 60 mg capsule Take 90 mg by mouth in the morning. 90 mg in morning . empagliflozin (JARDIANCE ORAL) Take 25 mg by [...] (NITROSTAT) 0.4 MG SL tablet Q5M omega 0-dsb-ftn-fish oil (Fish OiL) 300-1,000 mg capsule Take by mouth. polyethylene glycol (GLYCOLAX) 17 gram packet Take 17 g by mouth in the morning. (Patient taking differently: Take 17 g by mouth as needed.) spironolactone (ALDACTONE) 25 mg tablet Daily traZODone (DESYREL) 100 mg tablet Take 1 tablet (100 mg total) by mouth nightly as needed. atorvastatin (LIPITOR) 80 mg tablet Take 0.5 tablets (40 mg total) by mouth in the morning. cholecalciferol, vitamin D3, 5,000 units tablet Take 1 tablet (5,000 Units total) by mouth in the morning. 90 tablet 3 cyanocobalamin 1000 MCG tablet Take 1 tablet (1,000 mcg total) by mouth in the morning. 90 tablet 3 semaglutide (OZEMPIC) 0.25 mg or 0.5 mg [...] skin every 7 days. 9 mL 3 No current facility-administered medications for this visit. Review of Systems Review of Systems Constitutional: Negative for chills and fever. Gastrointestinal: Positive for abdominal pain and constipation. Negative for nausea and vomiting. Objective Vitals BP 118/72 Pulse 70 Temp 36.7 C (98.1 F) Resp 18 Ht 177.8 cm (5' 10 ) Wt 106.6 kg (235 lb) SpO2 96% BMI 33.72 kg/m Physical Exam Physical Exam Vitals and nursing note reviewed. Constitutional: Appearance: Normal appearance. He is well-developed. He is not ill-appearing or toxic-appearing. HENT: Mouth/Throat: Mouth: Mucous membranes are not dry. Cardiovascular: Rate and Rhythm: Normal rate and regular rhythm. Heart sounds: Normal heart sounds, S1 normal and S2 normal. No murmur heard. Pulmonary: Effort: Pulmonary effort is normal. Breath sounds: Normal breath sounds. No wheezing, rhonchi or rales. Abdominal: General: Bowel sounds are normal. There is no distension. Palpations: Abdomen is not rigid. Tenderness: There is no abdominal tenderness. There is no guarding or rebound. Musculoskeletal: Cervical back: Neck supple. Skin: General: Skin is warm and dry. Coloration: Skin is not pale. Neurological: Mental Status: He is alert and oriented to person, place, and time. Psychiatric: Speech: Speech normal. Behavior: Behavior normal. Thought Content: Thought content normal. Recent Pertinent Labs and Radiology Assessment/Plan 1. Symptomatic cholelithiasis - [facility] - [place], [place]; Future - X-ray abdomen ap 1 view; Future 2. Abdominal pain, unspecified abdominal location 3. Constipation, unspecified constipation type 4. Primary hypertension 5. Type 2 diabetes mellitus with diabetic peripheral angiopathy without gangrene, with long-term current use of insulin ([facility]) Surgical eval of gallstones. Will likely have to wait for surgical intervention until 6-12 months of DAPT completed GLP 1 could be causing GI upset, discuss with endo Resume atorvastatin Bowel regimen Return in about 3 months (around 06/14/2024) for Recheck. Medications Discontinued During This Encounter Medication Reason atorvastatin (LIPITOR) 80 mg tablet Reorder tamsulosin (FLOMAX) 0.4 mg capsule Therapy completed ticagrelor (BRILINTA) 90 mg tablet Discontinued by another clinician cyanocobalamin (VITAMIN B-12) 100 MCG tablet Reorder cholecalciferol, vitamin D3, 5,000 units tablet Reorder There are no Patient Instructions on file for this visit. TERRY Monteiro 04/02/24 0715 documented in this encounter [facility] 02-06-2024 History of Present illness Narrative Images from the original note were not included. [address] [place] [id number] Patient: Tom Khan Date of : 1955 Encounter Date: 02/06/2024 History of Present Illness: The patient is a 68 y.o. male, an established patient, and is here for history urinary retention. Insulin-dependent diabetic. Had back surgery. Was placed on some Flomax. He is voiding fine per the patient. PVR as below. Questions whether I can come off medication. History of some constipation.. Summary of old records: Urinalysis today: No results for input(s): EXTPOCURCO , EXTPOCURCH , EXTPOCAPP , EXTPOCURBS , EXTPOCURBIL , EXTPOCUKET , EXTPOCUSPG , EXTPOCUHGB , EXTPOCUPRO , EXTPOCUURO , EXTPOCULEU , EXTPOCUNIT , EXTPOCUWBC , EXTPOCUBLD , EXTPOCURBC , EXTPOCUCRY , EXTPOCUBAC , EXTPOCUTREP , EXTPOCUPH , EXTPOCULEE in the last 72 hours. Last BUN and creatinine: Lab Results Component [...] Past Medical History: Diagnosis Date Angina pectoris ([facility] Anxiety Arthritis osteoarthritis Back pain Cardiomegaly Cataract CHF (congestive heart failure) ([facility]) Coronary artery disease Status post CABG COVID-19 Dental disease crowns Depression Deviated septum Diabetes mellitus type 2, controlled ([facility]) Difficult intravenous access OSEI (dyspnea on exertion) Esophageal stricture Fractures Gallstone GERD (gastroesophageal reflux disease) H/O esophagogastroduodenoscopy dilatation Heart attack ([facility]) 10/06/2023 4 stints Hiatal hernia Hyperlipidemia Hypertension Hyponatremia Incontinence of bowel Incontinence of urine 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 Mild cognitive impairment Obesity Obsessive compulsive disorder Peripheral neuropathy Pneumonia PONV (postoperative nausea and vomiting) Pulmonary vascular congestion Salmonella Sleep apnea cpap Urinary retention Visual impairment glasses retinal detatchment Vitamin D deficiency Vitreous hemorrhage ([facility]) Vocal cord granuloma Past Surgical History: Procedure Laterality Date BACK SURGERY Left Circumferential 09/21/2023 fusion CATARACT EXTRACTION, BILATERAL Bilateral COLONOSCOPY 2012 CORONARY ARTERY BYPASS GRAFT ESOPHAGOGASTRODUODENOSCOPY dilatation EYE SURGERY Bilateral LAMINECTOMY LUMBAR SINGLE LEVEL / L4/5 N/A 09/21/2023 Performed by Mynor Steen MD at [facility] POSTERIOR LAMINECTOMY FUSION LUMBAR SINGLE LEVEL / L4/5 N/A 09/21/2023 Performed by Mynor Steen MD at [facility] REPLACEMENT TOTAL KNEE Bilateral ROTATOR CUFF REPAIR [...] Units total) by mouth in the morning. cyanocobalamin (VITAMIN B-12) 100 MCG tablet Take [...] skin in the morning. Please schedule appt. 60 mL 1 insulin lispro (HumaLOG) 100 [...] (NITROSTAT) 0.4 MG SL tablet Q5M omega 7-nsg-mur-fish oil (Fish OiL) 300-1,000 mg capsule Take by mouth. polyethylene glycol (GLYCOLAX) 17 gram packet Take 17 g by mouth in the morning. semaglutide (OZEMPIC) 0.25 mg or 0.5 mg (2 mg/3 mL) pen injector Inject 0.5 mg under the skin every 7 days. 0.5 mg subQ weekly for 4 weeks then increase to 1 mg weekly for 4 weeks, then increase to 2 mg weekly. 3 mL 0 semaglutide (OZEMPIC) 1 mg/dose (4 mg/3 mL) pen injector Inject 1 mg under the skin once a week for 90 days. 1 mg weekly for 4 weeks then increase to 2 mg weekly 3 mL 0 semaglutide (OZEMPIC) 2 mg/dose (8 mg/3 mL) pen injector Inject 2 mg under the skin every 7 days. 9 mL 3 spironolactone (ALDACTONE) 25 mg tablet Daily tamsulosin (FLOMAX) 0.4 mg capsule Take 2 pills by mouth prior to bedtime 180 capsule 2 ticagrelor (BRILINTA) 90 mg tablet Twice daily No current facility-administered medications for this visit. (All medications reviewed and updated by provider since last office visit or hospitalization) Allergies: Patient has no known allergies. Tobacco History: Social History Tobacco Use Smoking Status Never Smokeless Tobacco Never (If patient a smoker, smoking cessation counseling offered) Social History: Social History Substance and Sexual Activity Alcohol Use Not Currently Review of Systems: General: Negative for chills and fever. Cardiovascular: Negative for chest pain and shortness of breath. Gastrointestinal: Positive for nausea -per HPI Physical Exam: BP (!) 155/94 Pulse 80 Ht 177.8 cm (5' 10 ) Wt 110.2 kg (243 lb) BMI 34.87 kg/m Nontoxic no apparent distress. Respirations nonlabored. Skin is dry. Awake alert oriented x3. Assessment and Plan: Tom was seen today for follow-up. Diagnoses and all orders for this visit: History of urinary retention - Measure post void residual Urinary retention Problem List High Urinary retention Overview ==== 02/06/2024 ==== history retention after back surgery. He has been on Flomax. Tamsulosin. Tolerating medication. Query whether not to come off of it. PVR is very acceptable. Diffuse like he is voiding well. Plan: May stop her start his tamsulosin. Would be reasonable to check PVR in about 3 months. Follow-up: Rtc 3 months--can see midlevel-- Nathan Blankenship MD Prescription drug management performed during today's office visit This note was created with the assistance of a speech recognition program. While intending to generate a timely document that accurately reflects the content of the visit, no guarantee can be provided that every grammatical or spelling mistake has been or will be identified or corrected. Thank you for your understanding. documented in this encounter [facility] 01-23-2024 Miscellaneous Notes LM stating she is concerned his insulin is too much (both long and fast acting). He has lows overnight usually. This AM around 1am bs read 40. He had coke and maxx crackers. When waking up this AM bs was 134 and today post breakfast is 159. She states yesterday he felt nauseous, woozy, and had a headache. Asking if he can be seen soon in office. His dexcom download is in associate professor [employer] media arts for review. He takes 66u toujeo HS but she says she skipped it altogether a couple of nights if bs before bed is around 100. He also takes Humalog scale to 80-100: 8u, 101-150= 10 u, 151-200= 13 u, 201-250= 16, 250-300= 19 u etc, ozempic, and jardiance 25mg am. Download in [employer]. Please advise. Let us drop Toujeo to 56 units at bedtime. Drop Humalog scale to 80-100: 5u, 101-150= 8 u, 151-200= 10 u, 201-250= 12, 250-300= 14 u, over 300= 16 units Ok to see INDUSTRIAL ANALYST in 2 months. Schedule with me next available visit Called pt to schedule an appt vm was full I spoke with but we got disconnected. I left a detailed message on her phone with changes. documented in this encounter [facility] 01-23-2024 Telephone encounter Note LM stating she is concerned his insulin is too much (both long and fast acting). He has lows overnight usually. This AM around 1am bs read 40. He had coke and maxx crackers. When waking up this AM bs was 134 and today post breakfast is 159. She states yesterday he felt nauseous, woozy, and had a headache. Asking if he can be seen soon in office. His dexcom download is in [employer] media [employer] for review. He takes 66u toujeo HS but she says she skipped it altogether a couple of nights if bs before bed is around 100. He also takes Humalog scale to 80-100: 8u, 101-150= 10 u, 151-200= 13 u, 201-250= 16, 250-300= 19 u etc, ozempic, and jardiance 25mg am. Download in associate professor [employer] media [employer]. Please advise. [facility]-23-[facility]24 Telephone encounter Note Let us drop Toujeo to 56 units at bedtime. Drop Humalog scale to 80-100: 5u, 101-150= 8 u, 151-200= 10 u, 201-250= 12, 250-300= 14 u, over 300= 16 units Ok to see INDUSTRIAL ANALYST in 2 months. Schedule with me next available visit [facility] 01-23-2024 Telephone encounter Note Called pt to schedule an appt vm was full [facility] 01-23-2024 Telephone encounter Note I spoke with but we got disconnected. I left a detailed message on her phone with changes. T [facility] 01-22-2024 History of Present illness Narrative Subjective Tom Khan is a 68 y.o. male Chief Complaint Follow-up 68-year-old gentleman returns for follow-up for the first time to see me following high risk non-ST elevation [place] and October 06 of this year with [...] total., Disp: 100 tablet, Rfl: 11 omega 1-obv-ofy-fish oil (Fish OiL) 1,000 mg (120 mg-180 [...] 5. Depression, unspecified depression type 6. Old [place] (myocardial infarction) 7. History of PTCA 8. [...] discussion and plan. documented in this encounter [facility] Work Phone: 01-22-2024 Instructions Mona Huffman LPN [...] Increase physical activity. documented in this encounter [facility] Work Phone: 12-31-2023 History of Present illness Narrative Subjective Patient ID: Tom Khan is a 68 y.o. male. Chief Complaint Chief Complaint Patient presents with Follow-up Face to Face for diabetic shoes HPI HPI here for F2F eval. For DM shoes. Long standing DM, marginal control. Last A1C 7.7. does have chronic numbness of the feet. Tries to walk for exercise. Not doing much calorie burning exercise. Right shoulder hurts with rest. Did injure with fall. Has had extensive eval, per PCP, and had MRI, and ortho. Eval. Injection done, helped some, but still hurts. Past Medical History Past Medical History: Diagnosis Date Angina pectoris ([facility] Anxiety Arthritis osteoarthritis Back pain Cardiomegaly Cataract CHF (congestive heart failure) ([facility]) Coronary artery disease Status post CABG COVID-19 Dental disease crowns Depression Deviated septum Diabetes mellitus type 2, controlled ([facility]) Difficult intravenous access OSEI (dyspnea on exertion) Esophageal stricture Fractures Gallstone GERD (gastroesophageal reflux disease) H/O esophagogastroduodenoscopy dilatation Heart attack ([facility]) 10/06/2023 4 stints Hiatal hernia Hyperlipidemia Hypertension Hyponatremia Incontinence of bowel Incontinence of urine 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 Mild cognitive impairment Obesity Obsessive compulsive disorder Peripheral neuropathy Pneumonia PONV (postoperative nausea and vomiting) Pulmonary vascular congestion Salmonella Sleep apnea cpap Urinary retention Visual impairment glasses retinal detatchment Vitamin D deficiency Vitreous hemorrhage ([facility]) Vocal cord granuloma Past Surgical History Past Surgical History: Procedure Laterality Date BACK SURGERY Left Circumferential 09/21/2023 fusion CATARACT EXTRACTION, BILATERAL Bilateral COLONOSCOPY 2012 CORONARY ARTERY BYPASS GRAFT ESOPHAGOGASTRODUODENOSCOPY dilatation EYE SURGERY Bilateral LAMINECTOMY LUMBAR SINGLE LEVEL / L4/5 N/A 09/21/2023 Performed by Mynor Steen MD at [facility] POST[facility] LAMINECTOMY FUSION LUMBAR SINGLE LEVEL / L4/5 N/A 09/21/2023 Performed by Mynor Steen MD at [facility] REPLACEMENT TOTAL KNEE Bilateral ROTATOR CUFF REPAIR [...] very hard Food Insecurity: No Food Insecurity (12/31/2023) Hunger Screening Food Insecurity - Worry: Never True Food Insecurity - Inability: Never True Transportation Needs: No Transportation Needs (04/17/2023) PRAPARE - Transportation Lack of Transportation (Medical): No Lack of Transportation (Non-Medical): No Physical Activity: Sufficiently Active (04/17/2023) Exercise Vital Sign Days of Exercise per Week: 4 days Minutes of Exercise per Session: 60 min Stress: Stress Concern Present (04/17/2023) [employer] [place] [employer] - Occupational Stress Questionnaire Feeling of Stress : Rather much Social Connections: Socially Integrated (04/17/2023) Social Connection and Isolation Panel [NHANES] Frequency of Communication with Friends and Family: More than three times a week Frequency of Social Gatherings with Friends and Family: More than three times a week Attends Jewish Services: More than 4 times per year [...] skin in the morning. Please schedule appt. 60 mL 1 insulin lispro (HumaLOG) 100 [...] (NITROSTAT) 0.4 MG SL tablet Q5M omega 3-trk-dlf-fish oil (Fish OiL) 300-1,000 mg capsule Take by mouth. polyethylene glycol (GLYCOLAX) 17 gram packet Take 17 g by mouth in the morning. semaglutide (OZEMPIC) 0.25 mg or 0.5 mg (2 mg/3 mL) pen injector Inject 0.5 mg under the skin every 7 days. 0.5 mg subQ weekly for 4 weeks then increase to 1 mg weekly for 4 weeks, then increase to 2 mg weekly. 3 mL 0 semaglutide (OZEMPIC) 1 mg/dose (4 mg/3 mL) pen injector Inject 1 mg under the skin once a week for 90 days. 1 mg weekly for 4 weeks then increase to 2 mg weekly 3 mL 0 semaglutide (OZEMPIC) 2 mg/dose (8 mg/3 mL) pen injector Inject 2 mg under the skin every 7 days. 9 mL 3 spironolactone (ALDACTONE) 25 mg tablet Daily tamsulosin (FLOMAX) 0.4 mg capsule Take 2 pills by mouth prior to bedtime 180 capsule 2 ticagrelor (BRILINTA) 90 mg tablet Twice daily cholecalciferol, vitamin D3, 5,000 units tablet Take 1 tablet (5,000 Units total) by mouth in the morning. (Patient not taking: Reported on 10/15/2023) No current facility-administered medications for this visit. Review of Systems Review of Systems Constitutional: Negative for activity change, appetite change, fatigue and unexpected weight change. HENT: Negative for hearing loss, sore throat, trouble swallowing and voice change. Eyes: Negative for visual disturbance. Respiratory: Negative for cough, chest tightness, shortness of breath and wheezing. Cardiovascular: Negative for chest pain, palpitations and leg swelling. Gastrointestinal: Negative for abdominal distention, abdominal pain, constipation and diarrhea. Musculoskeletal: Positive for arthralgias and gait problem. Negative for myalgias. Skin: Negative for color change and rash. Neurological: Negative for dizziness, syncope, weakness, light-headedness and headaches. Psychiatric/Behavioral: Negative for dysphoric mood and sleep disturbance. The patient is not nervous/anxious. Objective Vitals BP 144/84 (BP Site: Left Arm, BP Postition: Sitting, BP CUFF SIZE: L (13-17 inches)) Pulse 74 Temp 36.6 C (97.8 F) (Temporal) Resp 18 Ht 177.8 cm (5' 10 ) Wt 110.2 kg (243 lb) SpO2 98% BMI 34.87 kg/m Physical Exam Physical Exam Vitals and nursing note reviewed. Constitutional: General: He is not in acute distress. Appearance: He is well-developed. He is obese. HENT: Head: Normocephalic and atraumatic. Eyes: General: No scleral icterus. Neck: Thyroid: No thyromegaly. Vascular: No JVD. Cardiovascular: Rate and Rhythm: Normal rate and regular rhythm. Heart sounds: Normal heart sounds. No murmur heard. No friction rub. No gallop. Pulmonary: Effort: Pulmonary effort is normal. No respiratory distress. Breath sounds: Normal breath sounds. No wheezing or rales. Chest: Chest wall: No tenderness. Musculoskeletal: General: No tenderness. Normal range of motion. Cervical back: Normal range of motion and neck supple. Right foot: Deformity present. Left foot: Deformity present. Feet: Right foot: Protective Sensation: 3 sites tested. 3 sites sensed. Skin integrity: Callus present. Left foot: Protective Sensation: 3 sites tested. 3 sites sensed. Skin integrity: Callus present. Comments: Fallen arches, bilat. Skin: General: Skin is warm and dry. Coloration: Skin is not pale. Findings: No erythema or rash. Neurological: Mental Status: He is alert and oriented to person, place, and time. Motor: No abnormal muscle tone. Coordination: Coordination normal. Psychiatric: Behavior: Behavior normal. Thought Content: Thought content normal. Judgment: Judgment normal. Assessment/Plan 1. Type 2 diabetes mellitus with diabetic peripheral angiopathy without gangrene, with long-term current use of insulin ([facility] 2. Primary hypertension 3. Chronic diastolic CHF (congestive heart failure) ([facility]) 4. Rotator cuff tear arthropathy of right shoulder - Ambulatory referral to Orthopedic Surgery; Future Forms completed for shoes. Enc. To start daily exercise. Ortho. Eval. For shoulder. Cont. Current meds. F/U as sched. There are no discontinued medications. documented in this encounter [facility] 12-27-2023 Miscellaneous Notes Tom leaves a message to say he is still experiencing some stomach bloating, nausea and no motivation. He says he has also had cardiac issues he has been treated for since his back surgery. He asks for a return call. Returned Tom's call. Explained to Tom that that symptoms he is experiencing would not be related to his lumbar surgery. He was advised to call his PCP or design consultant for follow up. He expresses understanding. documented in this encounter [facility] 12-27-2023 Telephone encounter Note Tom leaves a message to say he is still experiencing some stomach bloating, nausea and no motivation. He says he has also had cardiac issues he has been treated for since his back surgery. He asks for a return call. [facility] 12-27-2023 Telephone encounter Note Returned Tom's call. Explained to Tom that that symptoms he is experiencing would not be related to his lumbar surgery. He was advised to call his PCP or design consultant for follow up. He expresses understanding. [facility] 12-26-2023 Miscellaneous Notes Pt wanted to see if he should restart taking Ozempic, he stated his sugars have been elevated-into the 200s. Please advise I was not aware he stopped Ozempic. You should go back on it. Please pend prescription if he needs it. Thank you I have sent a separate pended script with explanation. Thank you! documented in this encounter [facility] 12-26-2023 Telephone encounter Note Pt wanted to see if he should restart taking Ozempic, he stated his sugars have been elevated-into the 200s. Please advise [facility] 12-26-2023 Telephone encounter Note I was not aware he stopped Ozempic. You should go back on it. Please pend prescription if he needs it. Thank you [facility] 12-26-2023 Telephone encounter Note I have sent a separate pended script with explanation. Thank you! [facility] 12-26-2023 Miscellaneous Notes Ok to sign and send documented in this encounter [facility] 12-26-2023 Telephone encounter Note Ok to sign and send [facility] 12-25-2023 Miscellaneous Notes Patient called, states he is taking a Statin and it is making Achy and coughing can he stop taking it Had a Referral for PT for Right shoulder and gotten a shot, which helped, ask if can get another shot, goes to [facility] for PT Cardiology has him on statin, he really should be on a statin because of history of coronary disease. We can check total CK, lab order in. Can try CoQ10 to help with aches. Theres a referral for PT in chart from November. Does he need something different? Called spoke to patient, then he put his on the line. Relayed message to both. Will get lab done. She asked to call her first, her [phone]. documented in this encounter [facility] 12-25-2023 Telephone encounter Note Patient called, states he is taking a Statin and it is making Achy and coughing can he stop taking it Had a Referral for PT for Right shoulder and gotten a shot, which helped, ask if can get another shot, goes to [facility] for PT [facility] 12-25-2023 Telephone encounter Note Cardiology has him on statin, he really should be on a statin because of history of coronary disease. We can check total CK, lab order in. Can try CoQ10 to help with aches. Theres a referral for PT in chart from November. Does he need something different? [facility] 12-25-2023 Telephone encounter Note Called spoke to patient, then he put his on the line. Relayed message to both. Will get lab done. She asked to call her first, her [phone]. [facility] 12-14-2023 Miscellaneous Notes Pt wanted to discuss ED if he's able to be on medication for it? Do you want him to discuss with Dr. Morse when he comes back for diabetic shoes 12/30? Can't be on ED meds with nitroglycerin. Can discuss at next appt. documented in this encounter [facility] 12-14-2023 Telephone encounter Note Pt wanted to discuss ED if he's able to be on medication for it? Do you want him to discuss with Dr. Morse when he comes back for diabetic shoes 12/30? [facility] 12-14-2023 Telephone encounter Note Can't be on ED meds with nitroglycerin. Can discuss at next appt. [facility] 12-14-2023 History of Present illness Narrative Subjective Patient ID: Tom Khan is a 68 y.o. male. Chief Complaint Chief Complaint Patient presents with Follow-up Completed labs and testing and saw specialist. Would like the bottom of his feet looked at HPI HPI Here for f/u Inquiring about ozempic. A1C today 7.7. Sees endo Reviewed RUQ abd US that showed uncomplicated cholelithiasis, and normal HIDA scan. Past Medical History Past Medical History: Diagnosis Date Angina pectoris ([facility]) Anxiety Arthritis osteoarthritis Back pain Cardiomegaly Cataract CHF (congestive heart failure) ([facility]) Coronary artery disease Status post CABG COVID-19 Dental disease crowns Depression Deviated septum Diabetes mellitus type 2, controlled ([facility]) Difficult intravenous access OSEI (dyspnea on exertion) Esophageal stricture Fractures Gallstone GERD (gastroesophageal reflux disease) H/O esophagogastroduodenoscopy dilatation Heart attack ([facility]) 10/06/2023 4 stints Hiatal hernia Hyperlipidemia Hypertension Hyponatremia Incontinence of bowel Incontinence of urine 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 Mild cognitive impairment Obesity Obsessive compulsive disorder Peripheral neuropathy Pneumonia PONV (postoperative nausea and vomiting) Pulmonary vascular congestion Salmonella Sleep apnea cpap Urinary retention Visual impairment glasses retinal detatchment Vitamin D deficiency Vitreous hemorrhage ([facility]) Vocal cord granuloma Past Surgical History Past Surgical History: Procedure Laterality Date BACK SURGERY Left Circumferential 09/21/2023 fusion CATARACT EXTRACTION, BILATERAL Bilateral COLONOSCOPY 2012 CORONARY ARTERY BYPASS GRAFT ESOPHAGOGASTRODUODENOSCOPY dilatation EYE SURGERY Bilateral LAMINECTOMY LUMBAR SINGLE LEVEL / L4/5 N/A 09/21/2023 Performed by Mynor Steen MD at [facility] LAMINECTOMY FUSION LUMBAR SINGLE LEVEL / L4/5 N/A 09/21/2023 Performed by Mynor Steen MD at [facility] REPLACEMENT TOTAL KNEE Bilateral ROTATOR CUFF REPAIR [...] very hard Food Insecurity: No Food Insecurity (12/31/2023) Hunger Screening Food Insecurity - Worry: Never True Food Insecurity - Inability: Never True Transportation Needs: No Transportation Needs (04/17/2023) PRAPARE - Transportation Lack of Transportation (Medical): No Lack of Transportation (Non-Medical): No Physical Activity: Sufficiently Active (04/17/2023) Exercise Vital Sign Days of Exercise per Week: 4 days Minutes of Exercise per Session: 60 min Stress: Stress Concern Present (04/17/2023) [employer] [place] [employer] - Occupational Stress Questionnaire Feeling of Stress : Rather much Social Connections: Socially Integrated (04/17/2023) Social Connection and Isolation Panel [NHANES] Frequency of Communication with Friends and Family: More than three times a week Frequency of Social Gatherings with Friends and Family: More than three times a week Attends Jewish Services: More than 4 times per year [...] 25 mg by mouth every morning. insulin lispro (HumaLOG) 100 unit/mL insulin pen [...] (NITROSTAT) 0.4 MG SL tablet Q5M omega 5-bfc-knr-fish oil (Fish OiL) 300-1,000 mg capsule Take by mouth. polyethylene glycol (GLYCOLAX) 17 gram packet Take 17 g by mouth in the morning. spironolactone (ALDACTONE) 25 mg tablet Daily tamsulosin (FLOMAX) 0.4 mg capsule Take 2 pills by mouth prior to bedtime 180 capsule 2 ticagrelor (BRILINTA) 90 mg tablet Twice daily cholecalciferol, vitamin D3, 5,000 units tablet Take 1 tablet (5,000 Units total) by mouth in the morning. (Patient not taking: Reported on 10/15/2023) insulin glargine U-300 conc (TOUJEO MAX U-300 SOLOSTAR) 300 unit/mL (3 mL) insulin pen Inject 66 Units under the skin in the morning. Please schedule appt. 60 mL 1 semaglutide (OZEMPIC) 0.25 mg or 0.5 mg (2 mg/3 mL) pen injector Inject 0.5 mg under the skin every 7 days. 0.5 mg subQ weekly for 4 weeks then increase to 1 mg weekly for 4 weeks, then increase to 2 mg weekly. 3 mL 0 semaglutide (OZEMPIC) 1 mg/dose (4 mg/3 mL) pen injector Inject 1 mg under the skin once a week for 90 days. 1 mg weekly for 4 weeks then increase to 2 mg weekly 3 mL 0 semaglutide (OZEMPIC) 2 mg/dose (8 mg/3 mL) pen injector Inject 2 mg under the skin every 7 days. 9 mL 3 No current facility-administered medications for this visit. Review of Systems Review of Systems Musculoskeletal: Positive for arthralgias. Objective Vitals BP 148/82 Pulse 64 Temp 36.8 C (98.2 F) Resp 18 Ht 177.8 cm (5' 10 ) Wt 113.9 kg (251 lb) SpO2 97% BMI 36.01 kg/m Physical Exam Physical Exam Vitals and nursing note reviewed. Constitutional: Appearance: He is not ill-appearing. Cardiovascular: Rate and [...] is cooperative. Thought Content: Thought content normal. Recent Pertinent Labs and Radiology Assessment/Plan 1. Type 2 diabetes mellitus with diabetic peripheral angiopathy without gangrene, with long-term current use of insulin ([facility]) - POCT Hemoglobin A1c A1C marginal control at 7.7. He is inquiring about ozempic. Encouraged pt to check with endo if ozempic would be appropriate. Did discuss he has gallstones, not currently symptomatic, no complication on US or HIDA. He is on DAPT since earlier this year s/p stent placement, would not recommend surgical eval at his time for uncomplicated gallstones until he is at least 6 month post cardiac stents. He has f/u with podiatry on foot callus Return in about 3 months (around 03/14/2024) for Annual physical. There are no discontinued medications. There are no Patient Instructions on file for this visit. TERRY Monteiro 01/01/242119 [facility] History of Present illness Narrative OUTPATIENT NUTRITION CONSULTATION- ADULT Date: 12/11/23 Time in: 2:50 Time out: 3:40 Patient Tom Khan Age () 68 y.o. (1955) Sex male Accompanied by alone Reason for Visit: Chief Complaint Patient presents with MNT - Individual Assessment: Height/Weight: Today's BMI Body mass index is 35.44 kg/m . BMI Category Obese class 2 (35.00- 39.99) Height Height: 177.8 cm (5' 10 ) Weight Wt Readings from Last 3 Encounters: 12/11/23 112 kg (247 lb) 12/06/23 112 kg (247 lb) 11/26/23 114.8 kg (253 lb) Flatgap Body Weight Flatgap body weight: 73 kg (160 lb 15 oz) Adjusted ideal body weight: 88.6 kg (195 lb 5.8 oz) Lab Results: POCT A1c Lab Results Component Value Date OKLEBHH6F 8.4 (A) 08/07/2023 A1c Lab Results Component Value Date HGBA1C 9.6 (H) 06/26/2022 HGBA1C 6.3 (H) 09/14/2015 C-Peptide No results found for: CPEPTIDE Kidney Alb/creat ratio Date/Time Value Ref Range Status 10/11/2022 04:32 PM 10.6 0.0 - 30.0 mg/g creat Final Lab Results Component Value Date GLU 129 (H) 11/16/2023 K 4.3 11/16/2023 BUN 25 11/16/2023 CREATININE 0.85 11/16/2023 Lipid Panel Lab Results Component Value Date CHOL 149 (L) 11/16/2023 Lab Results Component Value Date HDL 45 11/16/2023 Lab Results Component Value Date LDLCALC 66 11/16/2023 Lab Results Component Value Date TRIG 192 (H) 11/16/2023 No results found for: CHOLHDL Hgb Hemoglobin Date/Time Value Ref Range Status 11/16/2023 08:29 AM 14.3 13.0 - 17.0 g/dL Final Psychosocial / Economic Comments: Pt reports is home is under remodeling which includes the kitchen, recent back surgery, thus his eating habits have been altered. Excerise has been less due to issues with neuropathy of his feet. He feels that he needed a review of understading portion sizes, and what to cook, regarding types of meats etc. Nutrition/Diet Counseling: Prior Nutrition Counseling Prior nutrition counseling was provided with dietitian. Estimated Energy Needs 1800 kcals daily Diet History Revealed Energy Intake: Excessive Total Fat Intake: Excessive Sodium Intake: Inconsistent Fiber Intake: Inconsistent Carbohydrate Intake: Inconsistent Protein Intake: Adequate Food Recall Breakfast Time:: 0800 Breakfast Meal:: 2 eggs and orange, coffee with half half creamer Lunch Time:: 1200 Lunch Meal:: half sand, salad Dinner Time:: 0600 Dinner Meal:: Entree salad Snack Time:: 0800 Snack:: peanut butter, fruit veg What beverages do you consume and approxiate amount?: water, milk coffee Diagnosis: Excessive energy intake Related to Disordered eating pattern and Physical inactivity As evidenced by Estimated energy intake from diet more than estimated energy needs Intervention: Nutrition Education: Patient was instructed on carbohydrate counting, healthy food selections, weight reduction, sources of fat, and sources of fiber, menu planning, portion control, and label reading. Carbohydrate distribution provided to patient (if applicable): Breakfast Snack Lunch Snack Dinner Snack Carbohydrate 60-75 75 75 15 Total Kcal Recommended: 1800 (weight loss) Monitoring & Evaluation: Goals Eat 3 meals per day, Use resources discussed/given to count carbs, Target 5 servings of fruits/vegetables per day, Avoid sugar sweetened beverages, Exercise for 150 minutes per week, Monitors portions, and Label reading Follow-Up Plan Patient plans to call R.D. to schedule. Department phone number provided for questions after session. Apolinar Mckenzie RD., LD. [facility] Nutrition Education documented in this encounter [facility] 12-05-2023 Miscellaneous Notes 12/05/23 Tom Halefina 1955 Has Contacted our office requesting Nutrition Education. If you would like to refer Tom, please sign pended referral if agreeable for Education. Thank you! [facility] [phone] documented in this encounter [facility] 12-05-2023 Telephone encounter Note 12/05/23 Tom Marnie 1955 Has Contacted our office requesting Nutrition Education. If you would like to refer Tom, please sign pended referral if agreeable for Education. Thank you! [facility] [phone] [facility] 11-28-2023 Miscellaneous Notes Patient is concerned with a low that he had around 1am. Dexcom download attached in associate professor of media arts. Please advise. Toujeo 66u HS Humalog scale [...] to call us. documented in this encounter [facility] 11-28-2023 Telephone encounter Note Patient is concerned with a low that he had around 1am. Dexcom download attached in associate professor of media arts. Please advise. Toujeo 66u HS Humalog scale to: 0-100: 6u, 101-150= 8 u, 151-200= 11 u, 201-250= 14, 250-300= 17 etc. [facility] 11-28-2023 Telephone encounter Note I see a 1:00 a.m. low about 1 week back. Looks like he has not had anymore lows since. If this is correct, no need to change any doses. If he is needing to eat a bedtime snack to avoid overnight lows, then drop Toujeo to 60 units HS and avoid bedtime snacking. [facility] 11-28-2023 Telephone encounter Note Patient states he only had the one low and no bedtime snacking is done so patient informed of no changes at this time. I told him of lows continue to call us. [facility] 11-27-2023 Miscellaneous Notes Pt would like order for aquatic therapy. Please send to [facility] in [place]. Please place order. Need clearance from cardiology for water therapy Notified pt. documented in this encounter [facility] 11-27-2023 Telephone encounter Note Pt would like order for aquatic therapy. Please send to [facility] in [place]. Please place order. [facility] 11-27-2023 Telephone encounter Note Need clearance from cardiology for water therapy [facility] Work Phone: 11-27-2023 Telephone encounter Note Notified pt. [facility] 11-26-2023 History of Present illness Narrative Images from the original note were not included. [address] [id number] Patient: Tom Khan Date of : 1955 [...] a candidate for PDE5 as he had OH in 10/2023 per and carries nitroglycerin (never [...] Past Medical History: Diagnosis Date Angina pectoris ([facility]) Anxiety Arthritis osteoarthritis Back pain Cardiomegaly Cataract CHF (congestive heart failure) ([facility]) Coronary artery disease Status post CABG COVID-19 Dental disease crowns Depression Deviated septum Diabetes mellitus type 2, controlled ([facility]) Difficult intravenous access OSEI (dyspnea on exertion) Esophageal stricture Fractures Gallstone GERD (gastroesophageal reflux disease) H/O esophagogastroduodenoscopy dilatation Heart attack ([facility]) 10/06/2023 4 stints Hiatal hernia Hyperlipidemia Hypertension Hyponatremia Incontinence of bowel Incontinence of urine 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 Mild cognitive impairment Obesity Obsessive compulsive disorder Peripheral neuropathy Pneumonia PONV (postoperative nausea and vomiting) Pulmonary vascular congestion Salmonella Sleep apnea cpap Urinary retention Visual impairment glasses retinal detatchment Vitamin D deficiency Vitreous hemorrhage (CMS-HCC) Vocal cord granuloma Past Surgical History: Procedure Laterality Date BACK SURGERY Left Circumferential 09/21/2023 fusion CATARACT EXTRACTION, BILATERAL Bilateral COLONOSCOPY 2012 CORONARY ARTERY BYPASS GRAFT ESOPHAGOGASTRODUODENOSCOPY dilatation EYE SURGERY Bilateral LAMINECTOMY LUMBAR SINGLE LEVEL / L4/5 N/A 09/21/2023 Performed by Mynor Steen MD at [facility] LAMINECTOMY FUSION LUMBAR SINGLE LEVEL / L4/5 N/A 09/21/2023 Performed by Mynor Steen MD at [facility] REPLACEMENT TOTAL KNEE Bilateral ROTATOR CUFF REPAIR [...] (NITROSTAT) 0.4 MG SL tablet Q5M omega 6-kqj-zfc-fish oil (Fish OiL) 300-1,000 mg capsule Take [...] had to use it but did have OH in October of 2023. He understands he has not a candidate for PDE5. We briefly discussed potential for vacuum erection device as well as possible penile injection therapy. He will consider his options. Would like him to follow-up short-term sometime in the next 2-3 months in the [place] office location, establish with 1 of the [...] Vieyra 11/26/23 1110 documented in this encounter [facility] 11-22-2023 Miscellaneous Notes LM that a change [...] the new scale be sent in a [employer] message. Message sent. documented in this encounter [facility] 11-22-2023 Telephone encounter Note LM that a [...] has any upcoming appointments with our office. [facility] 11-22-2023 Telephone encounter Note Decrease Humalog scale to: 0-100: 6u, 101-150= 8 u, 151-200= 11 u, 201-250= 14, 250-300= 17 etc. Dexcom download in 1 week [facility] Work Phone: 11-22-2023 Telephone encounter Note Spoke with , she was unable to write down the new scale at this time and asked that the new scale be sent in a [employer] message. Message sent. [facility] 11-22-2023 Miscellaneous Notes Patient sent a [employer] message asking about his dexa scan that [...] ER if worse. documented in this encounter [facility] 11-22-2023 Telephone encounter Note Patient sent a [employer] [place] message asking about his dexa scan that he is supposed to get done. Can you please place this order? [facility] 11-22-2023 Telephone encounter Note HIDA scan was recommended, not DEXA HIDA scan order placed [facility] 11-22-2023 Telephone encounter Note Patient notified, states he will call back for central scheduling number. [facility] 11-22-2023 Telephone encounter Note Pt called back, was given scheduling number. He states the pain in abd getting worse. Advised to get 1st avail. Also, patient wanted to let you know his blood sugars are all over the place and back is bothering him. [facility] 11-22-2023 Telephone encounter Note Likely will have to wait a couple weeks for HIDA scan, if he is having increased back and abd pain, he should be evaluated in ED [facility] 11-22-2023 Telephone encounter Note Called patient, he has HIDA scan 12/05. Pt was advised to ER if worse. [facility] 11-19-2023 Miscellaneous Notes Patient states that even when he eats well high blood sugars are elevated afterwards. Dexcom download is attached in associate professor of media arts. Please advise. Toujeo 66u HS Humalog sliding scale <100 none 101-150: 9u 151-200: 12u 201-250: 15u etc Increase Humalog scale to 80-100: 8u, 101-150= 10 u, 151-200= 13 u, 201-250= 16, 250-300= 19 u etc Called. NA.LM documented in this encounter [facility] 11-19-2023 Telephone encounter Note Patient states that even when he eats well high blood sugars are elevated afterwards. Dexcom download is attached in associate professor of media arts. Please advise. Gian 66u HS Humalog sliding scale <100 none 101-150: 9u 151-200: 12u 201-250: 15u etc [facility] 11-19-2023 Telephone encounter Note Increase Humalog scale to 80-100: 8u, 101-150= 10 u, 151-200= 13 u, 201-250= 16, 250-300= 19 u etc [facility] Work Phone: 11-19-2023 Telephone encounter Note Called. NA.LM [facility] 11-19-2023 Miscellaneous Notes Error-Pt called for results, gave to Prisca documented in this encounter [facility] 11-19-2023 Telephone encounter Note Error-Pt called for results, gave to Prisca [facility] 11-15-2023 History of Present illness Narrative Subjective [...] s/p STEMI w/ stents at [facility] in October. LVEF 55%. Has f/u with Dr. Watts January 21. Sees Dr. Farfan (psychiatry [facility]) Recent back surgery - [...] Past Medical History: Diagnosis Date Angina pectoris ([facility]) Anxiety Arthritis osteoarthritis Back pain Cardiomegaly Cataract CHF (congestive heart failure) ([facility]) Coronary artery disease Status post CABG COVID-19 Dental disease crowns Depression Deviated septum Diabetes mellitus type 2, controlled ([facility]) Difficult intravenous access OSEI (dyspnea on exertion) Esophageal stricture Fractures Gallstone GERD (gastroesophageal reflux disease) H/O esophagogastroduodenoscopy dilatation Heart attack ([facility]) 10/06/2023 4 stints Hiatal hernia Hyperlipidemia Hypertension Hyponatremia Incontinence of bowel Incontinence of urine 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 Mild cognitive impairment Obesity Obsessive compulsive disorder Peripheral neuropathy Pneumonia PONV (postoperative nausea and vomiting) Pulmonary vascular congestion Salmonella Sleep apnea cpap Urinary retention Visual impairment glasses retinal detatchment Vitamin D deficiency Vitreous hemorrhage ([facility]) Vocal cord granuloma Past Surgical History Past Surgical History: Procedure Laterality Date BACK SURGERY Left Circumferential 09/21/2023 fusion CATARACT EXTRACTION, BILATERAL Bilateral COLONOSCOPY 2012 CORONARY ARTERY BYPASS GRAFT ESOPHAGOGASTRODUODENOSCOPY dilatation EYE SURGERY Bilateral LAMINECTOMY LUMBAR SINGLE LEVEL / L4/5 N/A 09/21/2023 Performed by Mynor Steen MD at [facility] LAMINECTOMY FUSION LUMBAR SINGLE LEVEL / L4/5 N/A 09/21/2023 Performed by Mynor Steen MD at [facility] REPLACEMENT TOTAL KNEE Bilateral ROTATOR CUFF REPAIR [...] 60 min Stress: Stress Concern Present (04/17/2023) [employer] [place] [employer] - Occupational Stress Questionnaire Feeling of Stress : Rather much Social Connections: Socially Integrated (04/17/2023) Social Connection and Isolation Panel [NHANES] Frequency of Communication with Friends and Family: More than three times a week Frequency of Social Gatherings with Friends and Family: More than three times a week Attends Jewish Services: More than 4 times per year [...] (NITROSTAT) 0.4 MG SL tablet Q5M omega 9-xgk-lvz-fish oil (Fish OiL) 300-1,000 mg capsule Take [...] normal. Left Ear: Hearing normal. Mouth/Throat: Lips: [place]. Pharynx: Oropharynx is clear. Eyes: General: No [...] gangrene, with long-term current use of insulin ([facility]) 2. OSEI (dyspnea on exertion) - CBC [...] elevation myocardial infarction (STEMI) of inferior wall ([facility]) 11. Moderate episode of recurrent major depressive disorder ([facility]) Return in about 3 weeks (around 12/06/2023) for Recheck. Medications Discontinued During This Encounter Medication Reason gabapentin (NEURONTIN) 300 mg capsule Therapy completed There are no Patient Instructions on file for this visit. TERRY Monteiro 12/02/23 1507 documented in this encounter [facility] 11-01-2023 History of Present illness Narrative Images from the original note were not included. [facility] [address] [place] [address], [address] [place] [address] * CHART NOTE ? 11/06/2023 Patient: Tom Khan 1955 [id number] Physician: Mynor Steen MD CHIEF COMPLAINT Post-op HISTORY OF [...] his core and legs. Denies loss of pricing associate strength, saddle anesthesia, urinary or bowel dysfunction, [...] SL tablet, Q5M, Disp: , Rfl: omega 2-dym-hvl-fish oil (Fish OiL) 300-1,000 mg capsule, Take [...] Right achilles: 2+ Left achilles: 2+ Right pricing associate: 2+ Left pricing associate: 2+ Right Moon: absent Left Moon: absent [...] PT and aquatic therapy. Electronically Signed By: Mynor Steen MD This note was created with the assistance of a speech recognition program with the goal of generating a timely record of the patient encounter. Inadvertent computerized spray machine loader errors related to syntax, spelling, homophones, and/or inaudibility may be present. Scribe Statement: Scribed for and in the presence of Mynor Steen MD by Chaz Clark. Provider Statement: I, Mynor Steen MD personally performed the services described in the documentation, as scribed by Chaz Clark in my presence, and it is both accurate and complete documented in this encounter [facility] 11-01-2023 Instructions PRASHANT Rockwell - 11/01/2023 1:30 PM EST Patient was seen by Dr. Steen. Patient was given an order for physical and aquatic therapy. Neurontin 300mg. 1 tablet every 8 hours. #90 30 day supply, 3 refills. Lumbar spine Flex/Ext x ray. A referral to urology. Patient will follow up after Aquatic and physical therapy. JA documented in this encounter [facility] 10-22-2023 Evaluation + Plan note Associated Problem(s): Obesity (BMI 30-39.9) Reviewed the merits of healthy lifestyle choices on overall cardiovascular health. [facility] Work Phone: 10-22-2023 Evaluation + Plan note Associated Problem(s): Diabetes mellitus (CMS/HCC) On statin/ARB Reports most recent hemoglobin A1c 8.0 [facility] Work Phone: 10-22-2023 Miscellaneous Notes Associated Problem(s): [...] Proximal, mid/distal and distal PDA of RCA PCI/SEAN x 3 Ramus PCI/SEAN Y graft to PITTS-diagonal - LAD: patent GRISELDA-OM patent SVG-RCA occluded SVG-circumflex/? OM occluded documented in this encounter [facility] Work Phone: 10-22-2023 Evaluation + Plan note Associated Problem(s): Ischemic cardiomyopathy October 2023 TTE LVEF 55% Inferior hypokinesis Left atrium mild MR trace [facility] Work Phone: 10-22-2023 Evaluation + Plan note Associated Problem(s): Hypertension Slightly elevated in office. Report home health care nurse - systolic blood pressure 149 [facility] Work Phone: 10-22-2023 Evaluation + Plan note Associated Problem(s): Hyperlipidemia Tolerating high intensity statin [facility] Work Phone: 10-22-2023 Evaluation + Plan note Associated Problem(s): CAD, multiple vessel 2009 CABG x5 Oct 06, 2023: In-house inferior STEMI while in inpatient rehab following L4-L5 laminectomy. Managed emergently by Dr. Watts. Proximal, mid/distal and distal PDA of RCA PCI/SEAN x 3 Ramus PCI/SEAN Y graft to PITTS-diagonal - LAD: patent GRISELDA-OM patent SVG-RCA occluded SVG-circumflex/? OM occluded [facility] Work Phone: 10-17-2023 History of Present illness Narrative Chief Complaint Seem to be okay Reason for Visit Patient presents to the office today for outpatient follow-up for hospital follow-up. Patient was recently hospitalized at [facility]. The patient was seen in Cardiology consult with subsequent cardiovascular management by [facility]. Hospitalization records have been reviewed. Reason for Cardiology Consultation: Inhouse inferior STEMI Consulting Wrapper Sorter: Dr. Watts Cardiovascular testing: Cardiac cath subsequent coronary intervention, echocardiogram Changes to cardiovascular medical regimen at time of discharge: Brilinta, Lipitor, Cozaar, Aldactone, aspirin. Discharge disposition: Home Presents today ambulatory with steady gait. Accompanied by spouse History of Present Illness Patient is a pleasant 68-year-old gentleman who presents to the office today without voiced cardiovascular complaints. He was in inpatient rehab at [facility] where he noted a sudden onset [...] for up to 3 doses total. omega 1-zmx-cqs-fish oil (Fish OiL) 1,000 mg (120 mg-180 [...] Proximal, mid/distal and distal PDA of RCA PCI/SEAN x 3 Ramus PCI/SEAN Y graft to PITTS-diagonal - LAD: patent [...] new symptoms arise. Dr. Watts 3 months Tesha Gavin MSN, CRIMINAL JUSTICE PROFESSOR-[employer] Please excuse any errors in grammar or translation related to this dictation. Voice recognition software was utilized to prepare this document. documented in this encounter [facility] Work Phone: 10-17-2023 Instructions TERRY Trinh - [...] Watts 3 months documented in this encounter [facility] Work Phone: 10-15-2023 History of Present illness Narrative Subjective Patient ID: Tom Khan is a 68 y.o. male. He was discharged from [facility] this Sunday after he had his OH, prior to that he was in rehab [...] Oct He will see Dr Guevara the design consultant on the Oct 17 Blood sugars have been running 150 - 200 - he has been off of ozempic for 6 months and it has been awhile since they have seen endocrine He has an appt with [facility] tomorrow He had the initial assessment for PT intake at home and will likely being home PT for his back and OP cardiac PT as well He has been gradually increasing his home activity as discussed with his neurosurgeon and design consultant His level of pain is subsiding and [...] nursing note reviewed. Exam conducted with a academic support specialist present (). Constitutional: General: He is not [...] laminectomy Chronic diastolic CHF (congestive heart failure) ([facility]) - carvediloL (COREG) 12.5 mg tablet; Take 1 tablet (12.5 mg total) by mouth in the morning and 1 tablet (12.5 mg total) before bedtime. 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 If you require [...] weight lifting, stair steppers, etc. until the design consultant approves these activities. Check with the design consultant on your first follow-up visit. CALL YOUR PHYSICIAN at [phone]: -If bleeding should occur from the catheter insertion site- apply pressure to the site then immediately call us. -Report any fever, redness, drainage, increased swelling, or firmness at the catheter insertion site. Some bruising or slight swelling may be present at the time of discharge. -Should arm or leg become cold, numb, white, or blue, contact the design consultant immediately. -IF you should experience episodes of [...] if you have recurrent angina. The attending design consultant or [facility] nurse clinician should provide you with specific instructions regarding activity, diet, medications, and further follow up for you. Follow the medication instructions provided on your discharge. If the dosages and instructions on this sheet differ from the dosage and instructions on the bottle, follow the instructions on the bottle. [facility] is not responsible for incorrect prescription [...] Provide education on high risk fall precautions [facility] Work Phone: 09-24-2023 Miscellaneous Notes ----- Message from Gilles Dominguez PA-C sent at 09/22/2023 10:47 AM EST ----- Fu 1-2 months sp hospitalization Still admitted.PRASHANT Gamboa Still admitted.PRASHANT Gamboa PT STILL ADMITTED documented in this encounter [facility] 09-24-2023 Telephone encounter Note ----- Message from Gilles Dominguez PA-C sent at 09/22/2023 10:47 AM EST ----- Fu 1-2 months sp hospitalization [facility] 09-24-2023 Telephone encounter Note Still admitted.PRASHANT Gamboa [facility] 09-24-2023 Telephone encounter Note Still admitted.PRASHANT Gamboa [facility] 09-24-2023 Telephone encounter Note PT STILL ADMITTED [facility] 09-19-2023 History of Present illness Narrative [facility] [address] [place] [address] Patient: Tom Khan Sex: male : 1955 Age: 67 y.o. PCP: Tom Paniagua Jr, DO 09/19/2023 Tom Khan is here for a(n) initial consultation. Chief Complaint Patient presents with Back Pain HPI: Physical therapy August 2023 at [facility] finished in September 2023, now currently [...] artery disease Status post CABG Diabetes mellitus ([facility]) Gallstone Hyperlipidemia Hypertension Vitreous hemorrhage ([facility]) Past Surgical History: Procedure Laterality Date COLONOSCOPY [...] 60 min Stress: Stress Concern Present (04/17/2023) [employer] [place] [employer] - Occupational Stress Questionnaire Feeling of Stress : Rather much Social Connections: Socially Integrated (04/17/2023) Social Connection and Isolation Panel [NHANES] Frequency of Communication with Friends and Family: More than three times a week Frequency of Social Gatherings with Friends and Family: More than three times a week Attends Jewish Services: More than 4 times per year [...] PA-C 09/19/23 1434 documented in this encounter [facility] 09-13-2023 Miscellaneous Notes Pt called she wasn't able to come to dr dhaliwal, wanted to know if pt could get a lasix bc his legs are getting puffy again, pt stated you did look at them , also concerned about entresto they go back to the cardiogist the pt hasn't taken Rx 3-4 weeks insurance chaged and cost to much Please send to [facility]. Will let them know orders will be there. documented in this encounter [facility] 09-13-2023 Telephone encounter Note Pt called she wasn't able to come to dr dhaliwal, wanted to know if pt could get a lasix bc his legs are getting puffy again, pt stated you did look at them , also concerned about entresto they go back to the cardiogist the pt hasn't taken Rx 3-4 weeks insurance chaged and cost to much [facility] 09-13-2023 Telephone encounter Note Please send to [facility]. Will let them know orders will be there. [facility] 09-11-2023 History of Present illness Narrative IM PROGRESS NOTE Patient - Tom Khan Age - 67 y.o. - 1955 ASSESSMENT & PLAN 1. Spinal stenosis of lumbar region without neurogenic claudication -patient with continued or worsened symptoms of spinal stenosis despite trial of physical therapy -due to his multiple psychiatric medications and medical comorbidities, is not a good candidate for pain medications -referral to pain clinic for possible injections - Ambulatory referral to Pain Management ([facility]); Future 2. Constipation, unspecified constipation type -uncertain etiology, although maybe related to side effects from some of his medications,, decreased activity, or poor oral intake of fluids -counseled him on need to drink plenty of fluids. Add fiber supplement. - psyllium husk (MetamuciL) 0.4 gram capsule; Take 1 capsule (0.4 g total) by mouth in the morning. Subjective 67-year-old male presents for recheck on his low back and leg symptoms. At last visit, was noted to have radicular pain radiating down his right leg with activity. He was limping and had restricted his activities. He underwent an MRI of his back which showed multilevel disc and facet disease, with severe spinal canal stenosis at L4-L5. -he was sent to physical therapy for evaluation and treatment. He has been attending regularly, and he does not notice any improvement in his symptoms. He had an evaluation earlier today and his gait was unchanged. He is dragging his right leg and his right leg is constantly hurting. A review of systems was negative except for the following: General: fatigue and weight gain Psychiatric: concentration difficulties, obsessive thoughts, and is perseverating about returning to work, and never having had children Gastrointestinal: constipation and has noticed some intermittent cramping in the right lower quadrant associated with the constipation. No blood. No nausea or vomiting. Musculoskeletal: gait disturbance, pain in back - bilateral, lower, and radiates into the right leg Neurological: gait disturbance and numbness/tingling. Exam BP 128/76 (BP Site: Left Arm, BP Postition: Sitting) Pulse 78 Temp 36.6 C (97.8 F) (Oral) Ht 193 cm (6' 4 ) Wt 118.9 kg (262 lb 3.2 oz) SpO2 96% BMI 31.92 kg/m Physical Exam Vitals reviewed. Constitutional: General: He is not in acute distress. Appearance: He is obese. He is not toxic-appearing. HENT: Head: Normocephalic. Right Ear: External ear normal. Left Ear: External ear normal. Nose: Nose normal. Mouth/Throat: Mouth: Mucous membranes are moist. Dentition: Normal dentition. Tongue: No lesions. Pharynx: No pharyngeal swelling, oropharyngeal exudate or posterior oropharyngeal erythema. Comments: Post UPPP. Post nasal drainage noted. No aphthous ulcers. Tongue without lesions or discoloration Eyes: General: No scleral icterus. Neck: Vascular: No carotid bruit. Cardiovascular: Rate and Rhythm: Normal rate and regular rhythm. Heart sounds: No murmur heard. No gallop. Comments: Decreased pulses bilateral posterior tibial. Numerous small to moderate size varicose veins bilateral lower legs Pulmonary: Effort: Pulmonary effort is normal. Breath sounds: No wheezing or rales. Abdominal: General: There is no distension. Palpations: Abdomen is soft. There is no mass. Tenderness: There is abdominal tenderness (Minimal in the right lower quadrant). There is no right CVA tenderness, left CVA tenderness, guarding or rebound. Hernia: No hernia is present. Comments: Obese, protuberant Musculoskeletal: General: Tenderness (Bilateral L4 and L5 paraspinal muscles. Bilateral SI joint. Bilateral sciatic notch right more than left.) and deformity (Thickened, yellow brittle toenails bilateral feet) present. Right lower leg: No edema (1+). Left lower leg: No edema (1+). Comments: Not wearing compression stockings Lymphadenopathy: Cervical: No cervical adenopathy. Skin: General: Skin is warm and dry. Coloration: Skin is not jaundiced. Findings: No bruising. Comments: No open skin areas or breakdown on feet or toes. Chronic discoloration of lower tibial regions bilaterally Neurological: Mental Status: He is alert and oriented to person, place, and time. Sensory: Sensory deficit (Diminished vibratory sensation bilateral toes and forefoot Decreased monofilament testing on the toes and forefeet bilateral.) present. Motor: No weakness. Deep Tendon Reflexes: Reflexes normal (absent at Patella and Achilles bilateral). Comments: No dermatomal loss of pinprick sensation in the L3, L4, L5 or S1 dermatomes of bilateral legs. Straight leg testing positive on the right and left legs. Decreased extension of the lumbar spine with concomitant discomfort in the low back. Psychiatric: Mood and Affect: Mood normal. Behavior: Behavior normal. Meds Current Outpatient Medications: albuterol (PROVENTIL HFA;VENTOLIN HFA) 90 mcg/actuation inhaler, INHALE 2 PUFFS BY MOUTH EVERY 4 HOURS NEEDED FOR WHEEZING OR SHORTNESS OF BREATH, Disp: , Rfl: benzonatate (TESSALON PERLES) 200 mg capsule, TAKE 1 CAPSULE BY MOUTH THREE TIMES A DAY NEEDED FOR COUGH, Disp: , Rfl: busPIRone (BUSPAR) 30 mg tablet, Take 1 tablet (30 mg total) by mouth in the morning and 1 tablet (30 mg total) before bedtime. 30 mg in AM and 15 mg hs., Disp: , Rfl: carvediloL (COREG) 12.5 mg [...] morning 30 at night., Disp: , Rfl: ENTRESTO 24-26 mg tablet, TAKE 1 TABLET BY MOUTH IN THE MORNING AND BEFORE BEDTIME, Disp: 180 tablet, Rfl: 0 HumaLOG KwikPen Insulin 200 unit/mL (3 mL) insulin pen, Up to 20 units with meals + scale with meals, up to 100 units daily in divided doses, Disp: 45 mL, Rfl: 3 LORazepam (ATIVAN) 1 mg tablet, 1 mg in the morning and 1/2 at night, Disp: , Rfl: melatonin (CIRCADIN) tablet, Take 1 tablet (3 mg total) by mouth nightly. 2 6mg per night, Disp: , Rfl: NEXLETOL 180 mg tablet, TAKE 1 TABLET BY MOUTH EVERY DAY IN THE MORNING, Disp: , Rfl: omega 7-jry-uqk-fish oil (Fish OiL) 300-1,000 mg capsule, Take by mouth., Disp: , Rfl: ONETOUCH DELICA PLUS LANCET 33 gauge misc, Test blood sugar 3 times a day, Disp: 300 each, Rfl: 3 ONETOUCH VERIO TEST STRIPS strip, Test blood sugar 3 times a day, Disp: 300 strip, Rfl: 3 semaglutide (OZEMPIC) 2 mg/dose (8 mg/3 mL) pen injector, Inject 2 mg under the skin every 7 days., Disp: 3 mL, Rfl: 11 psyllium husk (MetamuciL) 0.4 gram capsule, Take 1 capsule (0.4 g total) by mouth in the morning., Disp: , Rfl: TOUJEO MAX U-300 SOLOSTAR 300 unit/mL (3 mL) insulin pen, Inject up to 100 units daily, Disp: 30 mL, Rfl: 3 Lab Results No visits with results within 1 Month(s) from this visit. Latest known visit with results is: Office Visit on 08/07/2023 Component Date Value Ref Range Status External Poct Hgb A1C 08/07/2023 8.4 (A) 4 - 7 g/dL Final ADA Target < 8 08/07/2023 No Final Other Testing No results found. Tom Paniagua DO., [facility] Office: [phone] documented in this encounter [facility] 01-04-2023 History of Present illness Narrative Attemped to call with chest xray results. No answer. Unable to leave a VM Images from the original note were not included. Patient Name: [facility] Location: Tom Khan [address] [id number] Date Of : Date Of Visit: 1955 01/04/2023 MRN# Provider: [id number] Etta Oakes CNP Chief Complaint Patient presents [...] No major cough. 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 requests [...] was concerned because they were walking around [place] today and he states that he was [...] canal and external ear normal. Mouth/Throat: Lips: [place]. Mouth: Mucous membranes are moist. No lacerations [...] for this visit. documented in this encounter [facility] 07-06-2022 Evaluation note Encounter Date Diagnosis Assessment [...] Depression, major, recurrent, moderate (ICD-10 - F33.1) [facility] Other 11-19-2021 NotePROCEDURE: CT CSPINE WO CON [...] Electronically authenticated by: LULA RODRIGUEZ Date: 2021-07-22 09:36[facility]10-22-2021 NoteHNO ID: [id number] Author: Rudolph Ambrocio, AYAN-PAINT SPECIALIST Service: ? Author Type: Speech Language Pathologist Type: Progress Notes Filed: 06/24/2021 8:45 AM Note Text: 06/24/2021 [facility] SPEECH DISCONTINUANCE OF [...] or scheduled additional follow-up appointments. Rudolph Ambrocio CCC-[facility]21 NoteHNO ID: [id number] Author: MICK Flanagan Service: ? Author Type: Speech Language Pathologist Type: Progress Notes Filed: 03/23/2021 9:35 AM Note Text: Episode Visit Count: 3 Therapist That Will Oversee The Plan Of Care: Dorothy Benoit Start of Care Date: 02/15/21 Onset Date: 01/24/21 Plan of Care Certification Date: 02/15/21 Next Certification Due Date: 05/16/21 Patient Identified by Name and Date of : Yes [facility] SPEECH THERAPY PROGRESS [...] Planned Interventions, Frequency, and Duration: Cognitive-Linguistic Training PAINT SPECIALIST Recommendations: Outpatient Speech Therapy Results and Recommendations [...] Provided moderate verbal cues. TREATMENT: Speech/Language Therapy (71431): Skilled Intervention: Educated and instructed patient on compensatory strategies for memory and working memory Educated and instructed patient on memory recall strategies such as active repetition, association and grouping. Provided verbal cues in auditory / verbal memory tasks. Provided and instructed patient per home exercise program. Current Home Program: memory using association and 4 word sentences Billing: Speech Treatment (05669) Total time / Length of visit: 45 minutes Rudolph Ambrocio, [facility]06-[facility]-2021 NoteHNO ID: [id number] Author: Tima Soto MD Service: ? Author Type: Physician Type: Progress Notes Filed: 03/01/2021 4:35 PM Note Text: Ortho Knee Follow Up Note Narrative Referring Provider: Tima Soto [id number] [facility] [address] [id number] PCP: Tom Paniagua, DO IMPRESSION/PLAN: Sed rate/crp [...] my interpretation. I wrote the Assessment and Plan.[facility]06-29-2021 NoteHNO ID: [id number] Author: RT Cesar(R) Service: ? Author Type: Seafood Fisherman Type: Progress Notes Filed: 03/01/2021 12:52 PM [...] BY: RT Cesar(R) March 01, 2021 12:50 [facility]06-25-2021 NoteHNO ID: [id number] Author: Rudolph Ambrocio, MICK Service: ? Author Type: Speech Language Pathologist Type: Progress Notes Filed: 02/25/2021 12:06 PM Note Text: Episode Visit Count: 2 Therapist That Will Oversee The Plan Of Care: Dorothy Benoit Start of Care Date: 02/15/21 Onset Date: 01/24/21 Plan of Care Certification Date: 02/15/21 Next Certification Due Date: 05/16/21 Patient Identified by Name and Date of : Yes [facility] SPEECH THERAPY TREATMENT NOTE IMPRESSION: Communication deficits [...] after 5 minutes (100%) TREATMENT: Speech/Language Therapy ([id number]): Skilled Intervention: Educated and instructed patient on [...] order, time problem solving Billing: Speech Treatment ([id number]) Total time / Length of visit: 45 minutes [facility] NoteHNO ID: [id number] Author: MICK Shelton Service: ? Author Type: Speech Language Pathologist Type: Progress Notes Filed: 02/15/2021 1:57 PM Note Text: Episode Visit Count: 1 Therapist That Will Oversee The Plan Of Care: Dorothy Benoit Start of Care Date: 02/15/21 Onset Date: 01/24/21 Plan of Care Certification Date: 02/15/21 Next Certification Due Date: 05/16/21 Patient Identified by Name and Date of : Yes [facility] COGNITIVE LINGUISTIC EVALUATION PLAN OF CARE: Impression: Functional communication without limitations in: Cognition Communication deficits identified: Cognitive deficits RECOMMENDATION: PAINT SPECIALIST Recommendations: Outpatient Speech Therapy Results and Recommendations [...] 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 Prior Functional Level: Within Functional Limits [...] Eval Sound Production with Language Expression and Parks And Recreation Manager ([id number]) Speech/Language The (more content not included)...[facility] 05-20-2020 History of Present illness Narrative* Babs Ornelas Tech (Tech) - 05/20/2020 12:45 PM EDT Radiology Service [...] 20, 2020 1:07 PM [facility] general Narrative - Reported* Type Description Date Medical History 02/28/2012 Blood work CBC, CMP, Liver profile Medical History 03/09/12 Blood work Lipid, CMP, CBC, T4, TSH, HGA1C (6.2), PSA (1.07) Medical History CT Paranasal Sinses without cont rast 03-12-12 [facility] Medical History CT Abdomen and Pelvis without co ntrast 03-12-12 [facility] Medical History hypertension Medical History chronic depression Medical History diabetes mallitus Medical History NIDIA Surgical History CABG 2007 Surgical History ENT surgery due to sleep apnea. 2008 Surgical History Left knee replacement 09/2011 Surgical History dental implants Surgical History knee replacement right Hospitalization History SEE ABOVE [place] [employer] Other Evaluation noteNo assessment information available [facility] Work Phone: Evaluation noteNo InformationNortPenn State [facility] [employer] Other Evaluation note* Diagnosis Cough, unspecified type- Primary [facility] Diagnosis Onset Date Resolution Status Cauda equina compression acu te Impaired mobility and activities of daily living acute Post-operative pain acute S/P lumbar laminectomy acute Severe major depression acut e Spinal stenosis at L4-L5 level acute Type II diabetes mellitus ac [place] CAD (coronary artery disease) chronic Generalized anxiety disorder chronic Hyperlipidemia chronic Hypertension chronic Major psychotic depression, recurrent chronic [facility] Work Phone: Evaluation note* Diagnosis Onset Date Resolution Status Cauda equina compression acu te Impaired mobility and activities of daily living acute Post-operative pain acute S/P lumbar laminectomy acute Severe major depression acut e Spinal stenosis at L4-L5 level acute Type II diabetes mellitus ac [place] CAD (coronary artery disease) chronic Generalized anxiety disorder chronic Hyperlipidemia chronic Hypertension chronic Major psychotic depression, recurrent chronic History of coronary artery bypass graft x 3 acute Spinal stenosis at L4-L5 level acute ST elevation myocardial infa rction (STEMI) of inferior wall acute Type II diabetes mellitus ac [place] CAD (coronary artery disease) chronic Hyperlipidemia chronic Hypertension chronic [facility] Work Phone: Evaluation note* Diagnosis CAD, multiple vessel- Primary Primary hypertension Unspecified essential hypertension Mixed hyperlipidemia Ischemic cardiomyopathy Other specified forms of chronic ischemic heart disease Type 2 diabetes mellitus without complication, with long-term current use of insulin (CMS/HCC) Obesity (BMI 30-39.9) Major psychotic depression, recurrent (CMS/HCC) Moderate episode of recurrent major depressive disorder (CMS/HCC) documented in this encounter [facility] Work Phone: Evaluation note* Diagnosis CAD, multiple vessel Obesity (BMI 30-39.9) Primary hypertension Unspecified essential hypertension Type 2 diabetes mellitus without complication, with long-term current use of insulin (Multi) Depression, unspecified depression type Old OH (myocardial infarction) Old myocardial infarction History of PTCA Postsurgical percutaneous transluminal coronary angioplasty status Anxiety Anxiety state, unspecified Mixed hyperlipidemia documented in this encounter [facility] Work Phone: Evaluation note* Diagnosis Pre-op exam- Primary Preoperative examination, unspecified Primary osteoarthritis of right knee Primary localized osteoarthrosis, lower leg Essential hypertension Unspecified essential hypertension S/P CABG (coronary artery bypass graft) Postsurgical aortocoronary bypass status Unspecified sleep apnea Prediabetes Other abnormal glucose Atherosclerosis of [place] coronary artery of [place] heart without angina pectoris Vocal cord granuloma Other diseases of vocal cords Hyperlipidemia, unspecified hyperlipidemia type Esophageal stricture Stricture and stenosis of esophagus Depression, unspecified depression type Nuclear senile cataract, unspecified laterality [facility] Diagnosis Pre-op exam- Primary Preoperative examination, unspecified Primary osteoarthritis of right knee Primary localized osteoarthrosis, lower leg Essential hypertension Unspecified essential hypertension S/P CABG (coronary artery bypass graft) Postsurgical aortocoronary bypass status Unspecified sleep apnea Prediabetes Other abnormal glucose Atherosclerosis of [place] coronary artery of [place] heart without angina pectoris Vocal cord granuloma Other diseases of vocal cords Hyperlipidemia, unspecified hyperlipidemia type Esophageal stricture Stricture and stenosis of esophagus Depression, unspecified depression type Primary osteoarthritis of right knee Primary localized osteoarthrosis, lower leg [facility] Diagnosis CAD, multiple vessel- Primary Primary [...] Anxiety state, unspecified documented in this encounter [facility] Work Phone: Evaluation note* Diagnosis Diabetic polyneuropathy associated with type 2 diabetes mellitus (CMS/HCC)- Primary Corns and callosities documented in this encounter [facility] HealthcareEvaluation note* Diagnosis Diabetic polyneuropathy associated with type 2 diabetes mellitus (CMS/HCC)- Primary Ulcer of right foot with fat layer exposed (CMS/[facility]) Cellulitis of right foot documented in this encounter [facility] HealthcareEvaluation note* Diagnosis Diabetic polyneuropathy associated with type 2 diabetes mellitus (CMS/HCC)- Primary Corns and callosities Dystrophic nail Other specified disease of nail Dermatophytosis of nail documented in this encounter [facility] HealthcareEvaluation note* Diagnosis Bilateral leg edema- Primary Edema Venous stasis dermatitis Varicose veins of lower extremities with inflammation [facility]* Diagnosis Corns and callosities- Primary Diabetic polyneuropathy associated with type 2 diabetes mellitus (CMS/HCC) Dermatophytosis of nail Dystrophic nail Other specified disease of nail documented in this encounter [facility] HealthcareEvaluation note* Diagnosis Acute pain of right knee- Primary History of bilateral knee replacement Traumatic hematoma of right knee, initial encounter documented in this encounter [facility] HealthcareEvaluation note* Diagnosis Acute pain of right knee- Primary Traumatic hematoma of right knee, subsequent encounter Left hip pain Pain in joint, pelvic region and thigh Stiffness of hip joint, unspecified laterality Gait difficulty Abnormality of gait documented in this encounter [facility] HealthcareEvaluation note* Diagnosis Essential hypertension- Primary Unspecified essential hypertension Mixed hyperlipidemia Chronic diastolic CHF (congestive heart failure) ([facility]) Type 2 diabetes mellitus with diabetic peripheral angiopathy without gangrene, with long-term current use of insulin ([facility]) [facility] Diagnosis Chronic diastolic CHF (congestive heart failure) ([facility]) [facility] Diagnosis Type 2 diabetes mellitus with diabetic peripheral angiopathy without gangrene, with long-term current use of insulin ([facility])- Primary [facility] Diagnosis Type 2 diabetes mellitus with diabetic peripheral angiopathy without gangrene, with long-term current use of insulin ([facility])- Primary Primary hypertension Unspecified essential hypertension Chronic diastolic CHF (congestive heart failure) ([facility]) Rotator cuff tear arthropathy of right shoulder [facility]* Diagnosis On statin therapy- Primary [facility]* Diagnosis Type 2 diabetes mellitus with diabetic peripheral angiopathy without gangrene, with long-term current use of insulin ([facility])- Primary [facility]* Diagnosis Spinal stenosis of lumbar region without neurogenic claudication- Primary Constipation, unspecified constipation type documented [facility]* Diagnosis Type 2 diabetes mellitus with diabetic peripheral angiopathy without gangrene, with long-term current use of insulin ([facility]) documented [facility]* Diagnosis Type 2 diabetes mellitus with diabetic peripheral angiopathy without gangrene, with long-term current use of insulin ([facility])- Primary Mixed hyperlipidemia [facility]* Diagnosis Spinal stenosis of lumbar region without neurogenic claudication documented [facility] Diagnosis History of urinary retention- Primary Urinary retention Unspecified retention of urine [facility]* Diagnosis Status post lumbar laminectomy- Primary Chronic diastolic CHF (congestive heart failure) ([facility]) ST elevation myocardial infarction (STEMI) of inferior wall ([facility]) Acute myocardial infarction of other inferior wall, episode of care unspecified Type 2 diabetes mellitus with diabetic peripheral angiopathy without gangrene, with long-term current use of insulin ([facility]) Primary hypertension Unspecified essential hypertension History of urinary retention Other constipation [facility] Diagnosis Numbness in both legs- Primary Disturbance of skin sensation Lumbar pain Lumbago Lumbar pain Lumbago documented [facility]* Diagnosis Symptomatic cholelithiasis- Primary Abdominal pain, unspecified abdominal location Constipation, unspecified constipation type Primary hypertension Unspecified essential hypertension Type 2 diabetes mellitus with diabetic peripheral angiopathy without gangrene, with long-term current use of insulin ([facility]) Symptomatic cholelithiasis documented [facility]* Diagnosis Biliary colic- Primary Calculus of gallbladder without mention of cholecystitis or obstruction documented [facility]* Diagnosis Numbness in both legs Disturbance of skin sensation History of urinary retention documented [facility]* Diagnosis Gallstones- Primary Calculus of gallbladder without mention of cholecystitis or obstruction Gallstones- Primary Calculus of gallbladder without mention of cholecystitis or obstruction Gallstones Calculus of gallbladder without mention of cholecystitis or obstruction documented [facility]* Diagnosis Type 2 diabetes mellitus with diabetic peripheral angiopathy without gangrene, with long-term current use of insulin ([facility])- Primary OSEI (dyspnea on exertion) Other dyspnea and respiratory abnormality Bilateral lower extremity edema RUQ abdominal pain Abdominal pain, right upper quadrant Tendinopathy of left rotator cuff Mixed hyperlipidemia Screening PSA (prostate specific antigen) Special screening for malignant neoplasm of prostate Primary hypertension Unspecified essential hypertension CAD, multiple vessel ST elevation myocardial infarction (STEMI) of inferior wall ([facility]) Acute myocardial infarction of other inferior wall, episode of care unspecified Moderate episode of recurrent major depressive disorder ([facility]) Bilateral lower extremity edema RUQ abdominal pain Abdominal pain, right upper quadrant OSEI (dyspnea on exertion) Other dyspnea and respiratory abnormality documented [facility]* Diagnosis Type 2 diabetes mellitus with diabetic peripheral angiopathy without gangrene, with long-term current use of insulin ([facility])- Primary documented [facility]* Diagnosis Type 2 diabetes mellitus with diabetic peripheral angiopathy without gangrene, with long-term current use of insulin ([facility])- Primary documented [facility]* Diagnosis Type 2 diabetes mellitus with diabetic peripheral angiopathy without gangrene, with long-term current use of insulin ([facility]) [facility]* Diagnosis Suspected cauda equina syndrome- Primary Neck pain Cervicalgia Bilateral low back pain with sciatica, sciatica laterality unspecified, unspecified chronicity Incontinence of feces, unspecified fecal incontinence type B12 deficiency documented [facility]* Diagnosis Gallstones- Primary Calculus of gallbladder without mention of cholecystitis or obstruction Type 2 diabetes mellitus with diabetic peripheral angiopathy without gangrene, with long-term current use of insulin ([facility]) Gallstones Calculus of gallbladder without mention of cholecystitis or obstruction documented [facility]* Diagnosis Type 2 diabetes mellitus with diabetic peripheral angiopathy without gangrene, with long-term current use of insulin ([facility])- Primary documented in [facility]* Diagnosis Constipation, unspecified constipation type- Primary Abdominal pain, unspecified abdominal location documented in this [facility]* Diagnosis Type 2 diabetes mellitus with diabetic peripheral angiopathy without gangrene, with long-term current use of insulin ([facility])- Primary documented in [facility]* Diagnosis Constipation, unspecified constipation type- Primary Left lateral abdominal pain Antiplatelet or antithrombotic long-term use Encounter for long-term (current) use of antiplatelets/antithrombotics CAD, multiple vessel documented [facility]* Diagnosis Acute pain of right shoulder- Primary Acute pain of left shoulder Arthritis of left shoulder region Arthritis of left acromioclavicular joint Arthritis of right acromioclavicular joint documented in this encounter [facility] HealthcareEvaluation note* Diagnosis Type 2 diabetes mellitus with diabetic peripheral angiopathy without gangrene, with long-term current use of insulin ([facility]) documented [facility]* Diagnosis Other constipation- Primary Antiplatelet or antithrombotic long-term use Encounter for long-term (current) use of antiplatelets/antithrombotics History of colon polyps documented [facility]* Diagnosis Acute pain of right shoulder- Primary Rotator cuff tear arthropathy of right shoulder documented in this encounter [facility]Evaluation note* Diagnosis Primary hypertension- Primary Unspecified essential hypertension Type 2 diabetes mellitus with diabetic peripheral angiopathy without gangrene, with long-term current use of insulin ([facility]) Chronic diastolic CHF (congestive heart failure) ([facility]) CAD, multiple vessel documented [facility]* Diagnosis Diabetic polyneuropathy associated with type 2 diabetes mellitus ([facility])- Primary Dermatophytosis of nail Dystrophic nail Other specified disease of nail documented in this encounter [facility]* Diagnosis Urinary retention- Primary Unspecified retention of urine documented [facility]* Diagnosis Urinary retention- Primary Unspecified retention of urine Type 2 diabetes mellitus with diabetic peripheral angiopathy without gangrene, with long-term current use of insulin (CMS-HCC)- Primary documented [facility]* Diagnosis Urinary retention- Primary Unspecified retention of urine Gait disturbance- Primary Abnormality of gait Moderate episode of recurrent major depressive disorder (CMS-HCC) [facility]* Diagnosis Ulcer of left foot with fat layer exposed (CMS/HCC)- Primary Diabetic polyneuropathy associated with type 2 diabetes mellitus (CMS/HCC) Dermatophytosis of nail Contusion of lesser toe of left foot without damage to nail, initial encounter documented in this encounter [facility]* Diagnosis Diabetic polyneuropathy associated with type 2 diabetes mellitus (HCC)- Primary Ulcer of left foot with fat layer exposed (HCC) Hammer toe of left foot documented in this encounter [facility]* Diagnosis Arthritis of right shoulder- Primary Pre-op exam Type 2 diabetes mellitus with diabetic peripheral angiopathy without gangrene, with long-term current use of insulin (HCC) Mixed hyperlipidemia Mixed hyperlipidemia Primary hypertension Unspecified essential hypertension History of PTCA Postsurgical percutaneous transluminal coronary angioplasty status Constipation, unspecified constipation type Depression, unspecified depression type CANDIDA (generalized anxiety disorder) Generalized anxiety disorder Severe episode of recurrent major depressive disorder, without psychotic features (HCC) Obsessive-compulsive disorder, unspecified type documented in this encounter [facility]* Diagnosis Ulcer of right foot with fat layer exposed (HCC)- Primary Contusion of lesser toe of left foot without damage to nail, subsequent encounter Dermatophytosis of nail Dystrophic nail Other specified disease of nail Corns and callosities Diabetic polyneuropathy associated with type 2 diabetes mellitus (HCC) documented in this encounter [facility]* Diagnosis CAD, multiple vessel- Primary Primary hypertension Unspecified essential hypertension Mixed hyperlipidemia Ischemic cardiomyopathy Other specified forms of chronic ischemic heart disease Type 2 diabetes mellitus without complication, with long-term current use of insulin Obesity (BMI 30-39.9) Major psychotic depression, recurrent (Multi) Moderate episode of recurrent major depressive disorder ASHD (arteriosclerotic heart disease) Coronary atherosclerosis of unspecified type of vessel, [place] or graft History of coronary artery bypass graft Postsurgical aortocoronary bypass status History of PTCA Postsurgical percutaneous transluminal coronary angioplasty status Shortness of breath Type 2 diabetes mellitus without complication, with long-term current use of insulin Anxiety Anxiety state, unspecified Never smoked cigarettes BMI 35.0-35.9,adult Mixed hyperlipidemia documented in this encounter [facility] Work Phone: Evaluation note* Diagnosis Urinary retention- Primary Unspecified retention of urine Medicare annual wellness visit, subsequent- Primary Type 2 diabetes mellitus with diabetic peripheral angiopathy without gangrene, with long-term current use of insulin ([facility]) Primary hypertension Unspecified essential hypertension 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 Obesity, morbid ([facility]) Morbid obesity CAD, multiple vessel Mixed hyperlipidemia Moderate episode of recurrent major depressive disorder ([facility]) Gait disturbance Abnormality of gait Incontinence of feces, unspecified fecal incontinence type documented [facility] this encounter [facility]* Patient is here [...] months or earlier if the need arise -[facility] DO Work Phone: History of Present illness Narrative* Tim Ibrahim MD - 11/19/2024 2:30 PM EDT Images from the original note were not included. [facility] New Patient Visit Chief Complaint Patient presents with Follow-up Abdominal Pain He states the left sided pain has subsided. Constipation He states he has a bowel movement every other day or every 2 days. No straining or blood. He reports a urgency to have a BM. HISTORY OF PRESENT ILLNESS: Tom Khan is a 69 y.o. male who has a past medical history of Acute [place] ([facility]) (10/15/2023), Angina pectoris ([facility]), Anxiety, Arthritis, Autonomic neuropathy due to type 2 diabetes mellitus ([facility]) (06/01/2022), Back pain, CAD, multiple vessel (08/30/2023), Cardiomegaly, Cataract, Cataract, nuclear sclerotic senile, right (08/14/2018), CHF (congestive heart failure) ([facility]), Chronic diastolic CHF (congestive heart failure) ([facility]) (02/05/2023), Complaint of paresthesia (11/16/2022), Constipation (10/15/2023), Coronary arteriosclerosis (06/01/2022), Coronary artery disease, COVID-19, Dental disease, Depression, Deviated septum, Diabetes mellitus ([facility]) (08/30/2023), Diabetes mellitus type 2, controlled ([facility]), Difficult intravenous access, OSEI (dyspnea on exertion), Esophageal reflux (08/30/2023), Esophageal stricture, Fatigue (06/28/2011), Fractures, Gallstone, Gallstones (04/03/2024), GERD (gastroesophageal reflux disease), H/O esophagogastroduodenoscopy, Heart attack ([facility]) (10/06/2023), Hiatal hernia, Hyperlipidemia, Hypertension, Hyponatremia, Incontinence of bowel, Incontinence of urine, 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, Lower extremityweakness (09/20/2023), MCI (mild cognitive impairment) (02/25/2021), Mild cognitive impairment, Mixed anxiety and depressive disorder (09/07/2017), Mixed hyperlipidemia (06/28/2011), Moderate episodeof recurrent major depressive disorder ([facility]) (12/25/2022), Obesity, Obesity (BMI 30-39.9) (08/30/2023), Obesity, Class II, BMI 35-39.9 (04/13/2020), Obsessive compulsive disorder, Obsessive-compulsive disorder (11/07/2018), Obstructive sleep apnea syndrome (06/01/2022), Peripheral neuropathy, Pneumonia, PONV (postoperative nausea and vomiting), Primary hypertension (06/28/2011), Primary osteoarthritis of right knee (06/01/2022), Pseudophakia (05/05/2011), Pulmonary vascular congestion, Retinal detachment (06/01/2022), S/P total knee arthroplasty, right (04/12/2020), Salmonella, Sleep apnea, Spinal stenosis at L4-L5 level (10/15/2023), ST elevation myocardial infarction (STEMI) of inferior wall ([facility]) (10/15/2023), Type 2 diabetes mellitus with diabetic peripheral angiopathy withoutgangrene, with long-term current use of insulin ([facility]) (10/13/2019), Urinary retention, Visual impairment, Vitamin D deficiency, Vitreous hemorrhage ([facility]), and Vocal cord granuloma. Presentingfor follow-up visit. Patient reports bowel movements every 1-2 days. He is not compliant with the MiraLax. He does not take it daily. No nausea no vomiting. Very mild cramping abdominal pain. He is not taking any medication for that. No melena no hematochezia. 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 He has a past medical history of Acute [place] ([facility]) (10/15/2023), Angina pectoris ([facility]), Anxiety, Arthritis, Autonomic neuropathy due to type 2 diabetes mellitus ([facility]) (06/01/2022), Back pain, CAD, multiple vessel (08/30/2023), Cardiomegaly, Cataract, Cataract, nuclear sclerotic senile, right (08/14/2018), CHF (congestive heart failure) ([facility]), Chronic diastolic CHF (congestive heart failure) ([facility]) (02/05/2023), Complaint of paresthesia (11/16/2022), Constipation (10/15/2023), Coronary arteriosclerosis (06/01/2022), Coronary artery disease, COVID-19, Dental disease, Depression,Deviated septum, Diabetes mellitus ([facility]) (08/30/2023), Diabetes mellitus type 2, controlled ([facility]), Difficult intravenous access, OSEI (dyspnea on exertion), Esophageal reflux (08/30/2023), Esophageal stricture, Fatigue (06/28/2011), Fractures, Gallstone, Gallstones (04/03/2024), GERD (gastroesophageal reflux disease), H/O esophagogastroduodenoscopy, Heart attack ([facility]) (10/06/2023), Hiatal hernia, Hyperlipidemia, Hypertension, Hyponatremia, Incontinence of bowel, Incontinence of urine, 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, Lower extremity weakness (09/20/2023), MCI (mild cognitive impairment) (02/25/2021), Mild cognitive impairment, Mixed anxiety and depressive disorder (09/07/2017), Mixed hyperlipidemia (06/28/2011), Moderate episode of recurrent major depressive d isorder ([facility]) (12/25/2022), Obesity, Obesity (BMI 30-39.9) (08/30/2023), Obesity, Class II, [id number] (04/13/2020), Obsessive compulsive disorder, Obsessive-compulsive disorder (11/07/2018), Obstructive sleep apnea syndrome (06/01/2022), Peripheral neuropathy, Pneumonia, PONV (postoperative nausea and vomiting), Primary hypertension (06/28/2011), Primary osteoarthritis of right knee (06/01/2022), Pseudophakia (05/05/2011), Pulmonary vascular congestion, Retinal detachment (06/01/2022), S/P total knee arthroplasty, right (04/12/2020), Salmonella, Sleep apnea, Spinal stenosis at L4-L5 level (10/15/2023), ST elevation myocardial infarction (STEMI) of inferior wall ([facility]) (10/15/2023),Type 2 diabetes mellitus with diabetic peripheral angiopathy without gangrene, with long-term current use of insulin ([facility]) (10/13/2019), Urinary retention, Visual impairment, Vitamin D deficiency, Vitreous hemorrhage ([facility]), and Vocal cord granuloma. He has a past surgical history that includes Colonoscopy (2012); Coronary artery bypass graft; Replacement total knee (Bilateral); Eye surgery (Bilateral); Cataract extraction, bilateral (Bilateral);Esophagogastroduodenoscopy; Rotator cuff repair; Septoplasty; Lumbar laminectomy (N/A, 09/21/2023);Lumbar fusion (N/A, 09/21/2023); and Back surgery (Left Circumferential, 09/21/2023). His family history includes Diabetes in his mother; Heart disease in his father; Hyperlipidemia in his father; Hypertension in his father and mother. He reports that he has never smoked. He has never used smokeless tobacco. He reports that he does not currently use alcohol. He reports that he does not use drugs. PREVIOUS ENDOSCOPIC PROCEDURES: As noted in the HPI Past Surgical History Past Surgical History: Procedure Laterality Date BACK SURGERY Left Circumferential 09/21/2023 fusion CATARACT EXTRACTION, BILATERAL Bilateral COLONOSCOPY 2012 CORONARY ARTERY BYPASS GRAFT ESOPHAGOGASTRODUODENOSCOPY dilatation EYE SURGERY Bilateral LAMINECTOMY LUMBAR SINGLE LEVEL / L4/5 N/A 09/21/2023 Performed by Mynor Steen MD at [facility] POSTERIOR LAMINECTOMY FUSION LUMBAR SINGLE LEVEL / L4/5 N/A 09/21/2023 Performed by Mynor Steen MD at [facility] REPLACEMENT TOTAL KNEE Bilateral ROTATOR CUFF REPAIR SEPTOPLASTY Current Medications: Current Outpatient Medications: acetaminophen (TYLENOL EXTRA STRENGTH) 500 mg tablet, , Disp: , Rfl: ADMELOG SOLOSTAR U-100 INSULIN 100 unit/mL insulin pen, Per scale up to 25 units 3 times daily withmeals, max dose of 75 units daily, Disp: 75 mL, Rfl: 3 aspirin 81 mg, Daily, Disp: , Rfl: atorvastatin (LIPITOR) 40 mg tablet, Take 1 tablet (40 mg total) by mouth in the morning., Disp: 90tablet, Rfl: 3 busPIRone (BUSPAR) 10 mg tablet, Take 2 tablets (20 mg total) by mouth in the morning and 2 tablets(20 mg total) before bedtime., Disp: , Rfl: carvediloL (COREG) 12.5 mg [...] the morning., Disp: , Rfl: DULoxetine (CYMBALTA) 60 mg capsule, Take 1 capsule (60 mg total) by mouth in the morning., Disp: ,Rfl: furosemide (LASIX) 20 mg tablet, Take 1 tablet (20 mg total) by mouth daily., Disp: 90 tablet, Rfl:1 hyoscyamine (LEVSIN) 0.125 mg SL tablet, Take 1 tablet (125 mcg total) by mouth every 4 (four) hours as needed for cramping., Disp: 30 tablet, Rfl: 0 JARDIANCE 25 mg tablet tablet, TAKE 1 TABLET (25 MG TOTAL) BY MOUTH IN THE MORNING, Disp: 90 tablet, Rfl: 3 losartan (COZAAR) 25 mg tablet, Take 1 tablet (25 mg total) by mouth in the morning., Disp: , Rfl: melatonin (CIRCADIN) tablet, Take 2 tablets (6 mg total) by mouth nightly as needed. 1-2 tabs as needed nightly, Disp: , Rfl: mirtazapine (REMERON) 15 mg tablet, Take 1 tablet (15 mg total) by mouth once daily at bedtime., Disp: , Rfl: nitroglycerin (NITROSTAT) 0.4 MG SL tablet, , Disp: , Rfl: omega 1-qhi-ios-fish oil (Fish OiL) 300-1,000 mg capsule, Take by mouth., Disp: , Rfl: potassium chloride (KLOR-CON SPRINKLE) 10 MEQ CR capsule, Take 1 capsule (10 mEq total) by mouth inthe morning. Per Dr. Watts ., Disp: , Rfl: risperiDONE (RisperDAL) 1 mg tablet, TAKE 1 TABLET BY MOUTH TWICE A DAY FOR PYSCHOSIS (Patient not taking: Reported on 11/19/2024), Disp: , Rfl: semaglutide (OZEMPIC) 2 mg/dose (8 mg/3 mL) pen injector, Inject 2 mg under the skin every 7 days.,Disp: 9 mL, Rfl: 3 spironolactone (ALDACTONE) 25 mg tablet, Daily, Disp: , Rfl: TOUJEO MAX U-300 SOLOSTAR 300 unit/mL (3 mL) insulin pen, Inject 50 Units under the skin in the morning. Up to 75 units daily., Disp: 27 mL, Rfl: 3 traZODone (DESYREL) 100 mg tablet, Take 1 tablet (100 mg total) by mouth nightly as needed., Disp: , Rfl: I reviewed and reconciled this patient's medication list today. The list included in this note is the most up to date list that I can attest to at this time based on the information that the patient has provided me and the electronic medical record. ALLERGIES: Patient has no known allergies. SOCIAL HISTORY: Social History Tobacco Use Smoking status: Never Smokeless tobacco: Never Vaping Use Vaping status: Never Used Passive vaping exposure: Yes Substance Use Topics Alcohol use: Not Currently Drug use: No FAMILY HISTORY: Family History Problem Relation Age of Onset Diabetes Mother Hypertension Mother Heart disease Father Hyperlipidemia Father Hypertension Father Inflammatory bowel disease Neg Hx Cirrhosis Neg Hx Colon cancer Neg Hx ASSESSMENTS: REVIEW OF SYSTEMS: See HPI, otherwise ROS as below CONSTITUTIONAL: negative HEENT: negative RESPIRATORY: negative CARDIOVASCULAR: negative GASTROINTESTINAL: As in HPI GENITOURINARY: negative INTEGUMENT/BREAST: negative HEMATOLOGIC/LYMPHATIC: negative ALLERGIC/IMMUNOLOGIC: negative ENDOCRINE: negative MUSCULOSKELETAL: negative NEUROLOGICAL: negative BEHAVIOR/PSYCH: negative PHYSICAL EXAM: Vitals: 11/19/24 1238 BP: 130/90 Weight: 114.8 kg (253 lb) Height: 180.3 cm (5' 11 ) Body mass index is 35.29 kg/m . CONSTITUTIONAL: awake, alert and no apparent distress LUNGS: No increased work of breathing, good air exchange, clear to auscultation bilaterally, no crackles or wheezing CARDIOVASCULAR: regular rate and rhythm, normal S1 and S2 ABDOMEN: normal bowel sounds, soft, non-distended and non-tender NEURO: no focal deficits, moves all 4 extremities spontaneously RADIOLOGICAL DATA: No results found. DATA: CBC: Lab Results Component Value Date WBC 7.3 09/02/2024 HGB 13.3 09/02/2024 HCT 40.0 09/02/2024 MCV 93 09/02/2024 RDW 15.3 (H) 09/02/2024 PLT 273 09/02/2024 CMP: Lab Results Component Value Date K 4.2 10/03/2024 CL 105 10/03/2024 CO2 25 10/03/2024 BUN 27 10/03/2024 GLU 142 (H) 10/03/2024 GLU 108 (H) 06/10/2024 ASSESSMENT AND PLAN: Tom was seen today for follow-up, abdominal pain and constipation. Diagnoses and all orders for this visit: Other constipation Antiplatelet or antithrombotic long-term use History of colon polyps Normal CBC normal LFTs normal kidney function 06/10/2024. Normal lipase level. Extra abdomen March 22, 2024 showing moderate amount of feces. HIDA scan gallbladder normal December 22, 2023. Ultrasound abdomen showing cholelithiasis and hepatic steatosis November 21, 2023. History of spinal stenosis surgery, laminectomy September 22, 2023. History of colon polyps. Last colonoscopy 2017. Patient does not depict symptoms of biliary colic. Patient is on multiple medications with constipation side-effects including Ozempic Instructed the patient to take MiraLax every other day. Recommend lifestyle measures including?keeping active,?sleep hygiene,?hydration throughout the day,?using the stepstool, and?incorporating fiber in her diet (target >25g per day) including eating 3-4 Kiwi with skin on or Dragonfruit daily.Black coffee intake. Managing stress levels. Set up for Colonoscopy Recommend obtaining Cardiac preoperative risk assessment stratification?for endoscopy procedure; aswell as for antiplatelet/anticoagulant management (when applicable) Discussed with patient the rationale for the procedure along with risks of Colonoscopy that may include but not limited to inducing?bleeding, pain, infection/bacteremia, injury secondary to positioning, missing lesions, medication reaction including the ones that are administered by anesthesia, stro ke, embolism,?aspiration, cardiorespiratory arrest, spleen injury, perforation of GI tract which may require surgery or interventional radiology, need for referral to advanced GI for removal of largepolyps if identified, not able to control bleeding source, endoscopic interventions?to treat bleeding source, or .?Patient agreeable to proceed with Colonoscopy. All questions and concerns addressed.? Thank you for allowing me to participate in this pleasant patient s care. Please do not hesitate tocall my office for any questions/concerns. This note is dictated with the use of [employer], a computer voice recognition software. Quite often unanticipated grammatical, syntax, homophones, and other interpretive errors are inadvertently transcribed by the computer software. Please disregard these errors and please excuse any errors that haveescaped final proofreading. Tim Ibrahim MD, MPH Gastroenterology & Hepatology Assignment Manager [address], [address] [place] [address] PH: [phone] documented in this encounterProSelect [facility] SystemHospital Discharge instructions Additional Instructions Call [facility] tomorrow for follow-up. Also follow-up with a primary care provider or return for emergent concerns. No changes are made any home medications. Prescriptions are provided.[facility] Work Phone: InstructionsNot on filedocumented in [...] on filedocumented in this encounter [facility] System[facility]* Attachments The following attachments cannot be sent through Care Everywhere. * Gallstones (Liberian) documented in this encounterProMedica Health SystemInstructionsNot on file documented in this encounterProMedica Health SystemInstructionsNot on file documented in this encounterProMedica Health SystemInstructionsNot on file documented in this encounterProMedica Health SystemInstructionsNot on file documented in this encounterProMedica Health SystemInstructionsNot on file documented in this encounterProMedica Health SystemInstructionsNot on file documented in this encounterProMedica Health SystemInstructionsNot on file documented in this encounterProMedica Health SystemInstructionsNot on file documented in this encounterProMedica Health SystemReason for referral (narrative)* Consultation (Routine) - Authorized Specialty Diagnoses / Procedures Referred By Ish narvaez Referred To Contact Cardiology Diagnoses CAD, multiple vessel Procedures Follow Up In Cardiology Tesha Gavin APRN-CNP [address] [address], [address] [address] Gita Watts DO [address] [facility] [address], [address] [address] Referral ID Status Reason Start Date Expiration Date V isits Requested Visits Authorized [id number] Authorized 10/17/2023 10/16/2024 1 1 [facility] Work Phone: Reason for referral (narrative)* Consultation (Routine) - Authorized Specialty Diagnoses / Procedures Referred By Contac t Referred To Contact Cardiology Diagnoses CAD, multiple vessel Procedures Follow Up In Cardiology Gita Watts DO [address] [facility] [address], [address] [place] [address] Gita Watts, [address] [facility] [address] [place] [address] Referral ID Status Reason Start Date Expiration Date V isits Requested Visits Authorized [id number] Authorized 01/22/2024 01/21/2025 1 1 [facility] Work Phone: Rebiza for referral (narrative)* Consultation (Routine) - Pending Review Specialty Diagnoses / Procedures Referred By Contac t Referred To Contact Orthopedic Surgery Diagnoses Rotator cuff tear arthropathy of right shoulder Kayden Morse MD [address] [address] Axel Alexander MD [address] [place] [address] Referral ID Status Reason Start Date Expiration Date Visits Requested Visits Authorized [id number] Pending Review Specialty Services Required 12/31/2023 12/30/2024 1 1 [facility] for referral (narrative)* Consultation (Routine) - Pending Review Specialty Diagnoses / Procedures Referred By Contac t Referred To Contact Pain Medicine Diagnoses Spinal stenosis of lumbar region without neurogenic claudication Tom Paniagua, DO [address] [place] [address] Gita Sutton MD [address] [place] [address] Referral ID Status Reason Start Date Expiration Date V isits Requested Visits Authorized [id number] Pending Review 09/11/2023 09/10/2024 1 1 [facility] SystemReason for referral (narrative)* Consultation (Routine) - Pending Review Specialty Diagnoses / Procedures Referred By Contac t Referred To Contact Urology Diagnoses Numbness in both legs Mynor Steen MD [address] [place] [address] [address] [place] [phone] [facility] [address] [place] [phone] Referral ID Status Reason Start Date Expiration Date Visits Requested Visits Authorized [id number] Pending Review Specialty Services Required 11/01/2023 10/31/2024 1 1 * Rehabilitation - Outpatient (Routine) - Closed Specialty Diagnoses / Procedures Referred By Contac t Referred To Contact Rehabilitation Diagnoses Lumbar pain Mynor Steen MD [address] [place] [phone] [facility] Total Rehab [address] [place] [address] Referral ID Status Reason Start Date Expiration Date Visits Re quested Visits Authorized [id number] Closed 11/01/2023 10/31/2024 1 1 [facility] SystemReason for referral (narrative)* Consultation (Routine) - Pending Review Specialty Diagnoses / Procedures Referred By Contac t Referred To Contact General Surgery Diagnoses Symptomatic cholelithiasis Leeann Castillo, CRIMINAL JUSTICE PROFESSOR-MONEY COUNTER [address] [facility] [address] [place] [address] Zz Do Not Use -Bpp Gen Surg Sfer[address] [place] [address] [facility] [address] [place] [address] Referral ID Status Reason Start Date Expiration Date Visits Requested Visits Authorized [id number] Pending Review Specialty Services Required 03/14/2024 03/14/2025 1 1 [facility] for referral (narrative)* Consultation (Routine) - Pending Review Specialty Diagnoses / Procedures Referred By Ish narvaez Referred To Contact Endocrinology, Diabetes & Metabolism Diagnoses Type 2 diabetes mellitus with diabetic peripheral angiopathy without gangrene, with long-term current use of insulin ([facility]) Alea Mckenzie MD [address] [facility] [place] [address] [facility] Diabetes/Nutrition Ed [address] [place] [address] Referral ID Status Reason Start Date Expiration Date Visits Requested Visits Authorized [id number] Pending Review Specialty Services Required 12/06/2023 12/05/2024 1 1 [facility] for visit Narrative* Consultation (Routine) - Pending Review Specialty Diagnoses / Procedures Referred By Ish narvaez Referred To Contact Endocrinology, Diabetes & Metabolism Diagnoses Type 2 diabetes mellitus with diabetic peripheral angiopathy without gangrene, with long-term current use of insulin ([facility]) Alea Mckenzie MD [address] [facility] [place] [address] Phone: tel: fax: [facility] - Diabetes and Nutrition Education [address] [place] [address] Phone: tel: fax: Referral ID Status Reason Start Date Expiration Date Visits Requested Visits Authorized [id number] Pending Review Specialty Services Required 10/20/2024 10/20/2025 1 1 [facility] Summary Purpose Family History No Family History [...] Mother(V17.49, Z82.49) Status:Active Stroke syndrome: Mother Status:Active Relationship Condition Age at Onset Recorded Date/T vicente father Congestive heart failure Unknown Unknown mother Unknown Advance Directives No Advanced Directives Records Found Advance Directive Response Recorded Date/ Time Advance Directives No July 04, 2022 1:15pm Advance Directive Response Recorded Date/ Time Advance Directives No July 04, 2022 12:15pm Documents on File Type Date Recorded 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 Advance Directive(s) 04/12/2020 7:26 AM Date Activated Date Inactivated Comments 11/08/2018 10:10 AM 11/13/2018 7:35 PM Documents on File Type Date Recorded 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 Durable Power of Solar Site Assessment Specialist 08/08/2024 3:27 PM Date Activated Date Inactivated Comments 09/20/2023 6:01 AM 09/26/2023 7:04 PM Date Activated Date Inactivated Comments 09/20/2023 6:01 AM 09/26/2023 7:04 PM Documents on File Type Date Recorded 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 Note HNO ID: [id number] Author: Aristeo Tran Service: ? Author Type: [...] primary surgical anesthetic Staffing Anesthesiologist: Shawn Tran GOLD LEAF LAYER: Dane Carbajal) Ajit Performed by: SANDRA Preparation Sterility Preparation: hand hygiene performed prior to procedure, surgical cap used, mask used, sterile drape used during line insertion, skin prep agent completely dried prior to procedure Site Prep: Duraprep Procedure Details Patient Position: sitting Ultrasound Guided: No Monitoring: Pulse Ox, EKG and NIBP Approach: Midline Location: L2-3 Needle Needle (more content not included)... Note HNO ID: [id number] Author: Aristeo Tran Service: ? Author Type: [...] not included)... Procedure Findings Note HNO ID: [id number] Author: Aristeo Tran Service: ? Author Type: [...] primary surgical anesthetic Staffing Anesthesiologist: Shawn Tran GOLD LEAF LAYER: Dane Carbajal) Ajit Performed by: GOLD LEAF LAYER Preparation Sterility Preparation: hand hygiene performed prior to procedure, surgical cap used, mask used, sterile drape used during line insertion, skin prep agent completely dried prior to procedure Site Prep: Duraprep Procedure Details Patient Position: sitting Ultrasound Guided: No Monitoring: Pulse Ox, EKG and NIBP Approach: Midline Location: L2-3 Needle Needle (more content not included)... Note HNO ID: [id number] Author: Aristeo Tran Service: ? Author Type: [...] Equina Syndrom e s/p L4-5 Laminectomy/Fusion Acute [place] Reason for Visit Cauda equina janis france [...] (coronary artery disease) Hyperlipidemia Hypertension Chief Complaint Admit Date cough, chest congestion December 16, 2024 10:39am Chief Complaint TOM KHAN is being seen for ABN EKG. Reason for Referral Specialty Diagnoses / Procedures Referred By Ish narvaez Referred To Contact Rehabilitation Diagnoses Tendinopathy of left rotator cuff Leeann Castillo APRN-CNP [address] [facility] [address] [place] [address] Referral ID Status Reason Start Date Expiration Date Visits Requested Visits Authorized [id number] Pending Review Specialty Services Required 11/15/2023 11/14/2024 1 1 Specialty Diagnoses / Procedures Referred By Ish narvaez Referred To Contact Diagnoses Bilateral lower extremity edema Procedures Vas venous duplex lwr bilateral Leeann Castillo APRN-CNP [address] [facility] [address] [place] [address] Referral ID Status Reason Start Date Expiration Date V isits Requested Visits Authorized [id number] Pending Review 11/15/2023 11/14/2024 1 1 Specialty Diagnoses / Procedures Referred By Ish t Referred To Contact Diagnoses Numbness in both legs Procedures Measure post void residual Ashley Rodriguez PA [address] [place] [address] Referral ID Status Reason Start Date Expiration Date V isits Requested Visits Authorized [id number] Pending Review 11/26/2023 11/25/2024 1 1 Specialty Diagnoses / Procedures Referred By Ish t Referred To Contact Radiology Diagnoses Biliary colic Procedures NM hepatobiliary system imaging with pharmacologic agent Leeann Castillo, CRIMINAL JUSTICE PROFESSOR-MONEY COUNTER [address] [facility] [address] [place] [address] [facility] [address] [place] [address] Phone: [phone] Referral ID Status Reason Start Date Expiration Date V isits Requested Visits Authorized [id number] Authorized 11/23/2023 11/22/2024 5 5 Specialty Diagnoses / Procedures Referred By Ish narvaez Referred To Contact Diagnoses History of urinary retention Procedures [place] [address] [place] [address] Referral ID Status Reason Start Date Expiration Date V isits Requested Visits Authorized [id number] Pending Review 02/06/2024 02/05/2025 1 1 Additional Source Comments (unrecognized sect ion and [...] section and content) DATE CREATED AUTHOR 02/26/2018 [facility] DATE CREATED AUTHOR AUTHOR'S ORGANIZ ATION 02/26/2018 [facility] DATE CREATED AUTHOR AUTHOR'S ORGANIZ ATION 11/14/2018 [facility] DATE CREATED AUTHOR AUTHOR'S ORGANIZ ATION 04/14/2020 [facility] DATE CREATED AUTHOR AUTHOR'S ORGANIZ ATION 04/27/2020 [facility] DATE CREATED AUTHOR AUTHOR'S ORGANIZ ATION 01/12/2021 [facility] DATE CREATED AUTHOR AUTHOR'S ORGANIZ ATION 10/18/2021 [facility] DATE CREATED AUTHOR AUTHOR'S ORGANIZ ATION 11/25/2021 [facility] DATE CREATED AUTHOR AUTHOR'S ORGANIZ ATION 12/11/2021 [facility] DATE CREATED AUTHOR AUTHOR'S ORGANIZ ATION 03/23/2022 [facility] DATE CREATED AUTHOR AUTHOR'S ORGANIZ ATION 04/07/2022 [facility] DATE CREATED AUTHOR AUTHOR'S ORGANIZ ATION 01/09/2023 [facility] DATE CREATED AUTHOR AUTHOR'S ORGANIZ ATION 03/16/2023 [facility] DATE CREATED AUTHOR AUTHOR'S ORGANIZ ATION 03/16/2023 [facility] DATE CREATED AUTHOR AUTHOR'S ORGANIZ ATION 07/25/2023 [facility] DATE CREATED AUTHOR AUTHOR'S ORGANIZ ATION 03/28/2024 [facility] DATE CREATED AUTHOR AUTHOR'S ORGANIZ ATION 08/28/2024 [facility] DATE CREATED AUTHOR AUTHOR'S ORGANIZ ATION 10/24/2024 [facility] DATE CREATED AUTHOR AUTHOR'S ORGANIZ ATION 01/20/2025 [facility] DATE CREATED AUTHOR AUTHOR'S ORGANIZ ATION 01/20/2025 [facility] DATE CREATED AUTHOR AUTHOR'S ORGANIZ ATION 01/31/2025 [facility] DATE CREATED AUTHOR AUTHOR'S ORGANIZ ATION 03/17/2025 [facility] DATE CREATED AUTHOR AUTHOR'S ORGANIZ ATION 03/21/2025 [facility] DATE CREATED AUTHOR AUTHOR'S ORGANIZ ATION 03/21/2025 [facility] EPIC Goals (unrecognized section and content) Goals may be documented in a n alternate sectionGoals may be documented in an alternate sectionNo InformationNo InformationGoals may be documented in an alternate sectionGoals may be documented in an alternate sectionNot on filedocumented as of this encounterNot on filedocumented as of this encounterNot on filedocumented as of this encounterNot on filedocumented as of this encounterGoals may be documented in an alternate section Care Teams (unrecognized sec tion and content) Team Status: Active Member Role Status Dates Tom Paniagua DO Primary Care Provider Active Team Status: Inactive Member Role Status Dates Tom Paniagua DO Primary Care Provider Active Sta rt: December 16, 2024 End: December 16, 2024 Aydee Antonio APRN Attending Provider Active Start: December 16, 2024 End: December 16, 2024 Team Status: Active Member Role Status Dates Tom Paniagua DO Primary Care Provider Active Sta rt: September 26, 2023 Bobby Portillo MD Admit Provid er, Other Provider Active Start: September 26, 2023 Lissa Melendez RN Other Provider Active Star t: September 26, 2023 Nancy Estrada , SAMUEL Other Provider Active Start : September 26, 2023 Norma Isabel , SAMUEL Other Provider Active Start: J anuary 2023 Nithin Jackson , SAMUEL Other Provider Active Star t: September 26, 2023 Maricarmen Reddy , SAMUEL Other Provider Active Start : [...] Derick Perkins MD Other Provider Active Start: J anuary 2023 Nuha Martinez APRN Other Provider Active Start: September 26, 2023 Sherif Almaraz MD Other Provider Active Start: September 26, 2023 Amaury Castaneda MD Other Provider Active Start: J anuary 2023 Cierra Slaughter MD Other Provider Active Start: September 26, 2023 Meera Shields MD Other Provider Active Start: September 26, 2023 Nathan Evans DO Other Provider Active Start: September 26, 2023 Aren Song MD Other Provider Active Start: 2023 Messi Fry MD Other Provider Active Start: Sep Joyce Chapman , INDUSTRIAL ANALYST-C Other Provider Active St art: September 26, 2023 Leonora Levine APRN Other Provider Active Star t: September 26, 2023 Lev Webster MD Other Provider Active Start: September 26, 2023 Rigo Rosado MD Other Provider Active Start: 2023 Abilio Valentin MD Other Provider Active Start: Sep Alma Rosa Romero MD Other Provider Active Star t: September 26, 2023 Ever Kurtz MD Other Provider Active Start: anuary 2023 Jodee Mckeon DO Other Provider Active Start: sushil 2023 David Ely DO Other Provider Active Start : September 26, 2023 Mc Duarte DO Other Provider Active Sta rt: September 26, 2023 Kellie Elena APRN Other Provider Active Start: September 26, 2023 Hebert Bonilla DO Other Provider Active Start: September 26, 2023 Thomas Harris MD Other Provider Active Sta rt: September 26, 2023 Sully Gavin APRN Other Provider Active Start : September 26, 2023 Yanet Steele APRN Other Provider Active St art: September [...] Lula Del Rosario MD Attending Provider Active Emergency Preparedness Manager Relationship Specialty Start Date End Date No, Physician [facility] PCP - General 07/20/17 Team Status: Active Member Role Status Dates Tom Paniagua DO Primary Care Provider Active Sta rt: October 06, 2023 Nathan Evans DO Admit Provider, Atte nding Provider, Other Provider Active Start: October 06, 2023 Erin Somers RN Other Provider Active Star t: October 06, 2023 Kourtney Watts DO Other Provider Active Start : October 06, 2023 Oksana Lima MD Other Provider Active Start: October 06, 2023 Gita Arrington MD Other Provider Active Start: October 06, 2023 Bertha Tovar MD Other Provider Active St art: October 06, 2023 José Manuel Zheng MD Other Provider Active Start: October 06, 2023 Tesha aGvin APRN Other Provider Active Start: October 06, 2023 Awilda Simental MD Other Provider Active Start: ebruary 2023 Mei Thomas MD Other Provider Active Start: October 06, 2023 Baltazar Mora MD Other Provider Active Start: ebruary 2023 Aissatou Thomas , [facility]- Other Provider Active Sta rt: October 06, 2023 Ramila Castillo MD Other Provider Active Start: October 06, 2023 Ivette Osorio MD Other Provider Active St art: October 06, 2023 Alek Damon MD Attending Provider Active Start: October 06, 2023 Emergency Preparedness Manager Relationship Specialty Start Date End Date Veronica De Jesus, CRIMINAL JUSTICE PROFESSOR-MONEY COUNTER [address] [facility] [address] PCP - General Family Medicine 10/17/23 Emergency Preparedness Manager Relationship Specialty Start Date End Date Leeann Castillo, CRIMINAL JUSTICE PROFESSOR-MONEY COUNTER PCP - General Internal Medicine 12/04/23 Emergency Preparedness Manager Relationship Specialty Start Date End Date Alkakrunal Tom Hiram [address] [place] [address] PCP - General 12/12/00 Tom Gottlieb MD [address] [place] [address] Primary Staff Physician Cardiology 11/19/18 Emergency Preparedness Manager Relationship Specialty Start Date End Date ElizabethTom hood [address] [place] [address] PCP - General 12/12/00 Tom Gottlieb MD [address] [place] [address] Primary Staff Physician Cardiology 11/19/18 Emergency Preparedness Manager Relationship Specialty Start Date End Date Leeann Castillo, CRIMINAL JUSTICE PROFESSOR-MONEY COUNTER [address] [facility] [address] [place] [address] PCP - General Internal Medicine 07/16/24 Gita Watts DO [address] [facility] [address] [place] [address] Consulting Physician Cardiology 07/16/24 Emergency Preparedness Manager Relationship Specialty Start Date End Date Tom Paniagua MD [address] [facility] [place] [address] PCP - General Internal Medicine 01/30/23 Emergency Preparedness Manager Relationship Specialty Start Date End Date Tom Paniagua MD [address] [facility] [address] PCP - General Internal Medicine 01/30/23 Emergency Preparedness Manager Relationship Specialty Start Date End Date Tom Paniagua MD [address] [facility] [address] PCP - General Internal Medicine 01/30/23 Emergency Preparedness Manager Relationship Specialty Start Date End Date Tom Paniagua MD [address] [place] [address] PCP - General Internal Medicine 01/30/23 Emergency Preparedness Manager Relationship Specialty Start Date End Date Tom Paniagua MD [address] [place] [address] PCP - General Internal Medicine 01/30/23 Emergency Preparedness Manager Relationship Specialty Start Date End Date Tom Paniagua MD [address] [place] [address] PCP - General Internal Medicine 01/30/23 Emergency Preparedness Manager Relationship Specialty Start Date End Date Tom Paniagua MD [address] [facility] [place] [address] PCP - General Internal Medicine 01/30/23 Emergency Preparedness Manager Relationship Specialty Start Date End Date Tmo Paniagua MD [address] [place] [address] PCP - General Internal Medicine 01/30/23 Emergency Preparedness Manager Relationship Specialty Start Date End Date Tom Paniagua MD [address] [place] [address] PCP - General Internal Medicine 01/30/23 Emergency Preparedness Manager Relationship Specialty Start Date End Date Tom Paniagua MD [address] [place] [address] PCP - General Internal Medicine 01/30/23 Emergency Preparedness Manager Relationship Specialty Start Date End Date Leeann Castillo APRN-CNP [address] [facility] [address] [place] [address] PCP - General Internal Medicine 11/15/23 Emergency Preparedness Manager Relationship Specialty Start Date End Date Leeann Castillo APRN-CNP [address] [facility] [address] [place] [address] PCP - General Internal Medicine 11/15/23 Emergency Preparedness Manager Relationship Specialty Start Date End Date Tom Paniagua DO [address] [place] [address] PCP - General Internal Medicine 09/18/18 Emergency Preparedness Manager Relationship Specialty Start Date End Date Leeann Castillo APRN-CNP [address] [facility] [address] [place] [address] PCP - General Internal Medicine 11/15/23 Emergency Preparedness Manager Relationship Specialty Start Date End Date Leeann Castillo APRN-CNP [address] [facility] [address] [place] [address] PCP - General Internal Medicine 11/15/23 Emergency Preparedness Manager Relationship Specialty Start Date End Date Leeann Castillo APRN-CNP [address] [facility] [address] [place] [address] PCP - General Internal Medicine 11/15/23 Emergency Preparedness Manager Relationship Specialty Start Date End Date Leeann Castillo APRN-CNP [address] [facility] [address] [place] [address] PCP - General Internal Medicine 11/15/23 Emergency Preparedness Manager Relationship Specialty Start Date End Date Leeann Castillo APRN-CNP [address] [facility] [address] [place] [address] PCP - General Internal Medicine 11/15/23 Emergency Preparedness Manager Relationship Specialty Start Date End Date Tom Paniagua DO [address] [place] [address] PCP - General Internal Medicine 09/18/18 Emergency Preparedness Manager Relationship Specialty Start Date End Date Leeann Castillo APRN-CNP [address] [facility] [address] [place] [address] PCP - General Internal Medicine 11/15/23 Emergency Preparedness Manager Relationship Specialty Start Date End Date Leaenn Castillo APRN-CNP [address] [facility] [address] [place] [address] PCP - General Internal Medicine 11/15/23 Emergency Preparedness Manager Relationship Specialty Start Date End Date Leeann Castillo APRN-CNP [address] [facility] [address] [place] [address] PCP - General Internal Medicine 11/15/23 Emergency Preparedness Manager Relationship Specialty Start Date End Date Leeann Castillo APRN-MONEY COUNTER [address] [facility] [address] [place] [address] PCP - General Internal Medicine 11/15/23 Emergency Preparedness Manager Relationship Specialty Start Date End Date Leeann Castillo APRN-MONEY COUNTER [address] [facility] [address] [place] [address] PCP - General Internal Medicine 11/15/23 Emergency Preparedness Manager Relationship Specialty Start Date End Date Leeann Castillo APRN-MONEY COUNTER [address] [facility] [address] [place] [address] PCP - General Internal Medicine 11/15/23 Emergency Preparedness Manager Relationship Specialty Start Date End Date Leeann Castillo APRN-MONEY COUNTER [address] [facility] [address] [place] [address] PCP - General Internal Medicine 11/15/23 Emergency Preparedness Manager Relationship Specialty Start Date End Date Leeann Castillo APRN-MONEY COUNTER [address] [facility] [address] [place] [address] PCP - General Internal Medicine 11/15/23 Emergency Preparedness Manager Relationship Specialty Start Date End Date Veronica De Jesus, CRIMINAL JUSTICE PROFESSOR-PRODUCT RESPONSIBILITY LIAISON [address] [place] [address] PCP - General Internal Medicine 09/26/23 Emergency Preparedness Manager Relationship Specialty Start Date End Date Leeann Castillo CRIMINAL JUSTICE PROFESSOR-MONEY COUNTER [address] [facility] [address] [place] [address] PCP - General Internal Medicine 11/15/23 Emergency Preparedness Manager Relationship Specialty Start Date End Date Leeann Castillo APRN-CNP [address] [facility] [address] [place] [address] PCP - General Internal Medicine 11/15/23 Emergency Preparedness Manager Relationship Specialty Start Date End Date Leeann Castillo APRN-CNP [address] [facility] [address] [place] [address] PCP - General Internal Medicine 11/15/23 Emergency Preparedness Manager Relationship Specialty Start Date End Date Leeann Castillo APRN-CNP [address] [facility] [address] [address] PCP - General Internal Medicine 11/15/23 Emergency Preparedness Manager Relationship Specialty Start Date End Date Veronica De Jesus APRN-[facility] [address] [place] [address] PCP - General Internal Medicine 09/26/23 Emergency Preparedness Manager Relationship Specialty Start Date End Date Leeann Castillo APRN-CNP [address] [facility] [address] [address] PCP - General Internal Medicine 11/15/23 Emergency Preparedness Manager Relationship Specialty Start Date End Date Veronica De Jesus APRN-PRODUCT RESPONSIBILITY LIAISON [address] [place] [address] PCP - General Internal Medicine 09/26/23 Emergency Preparedness Manager Relationship Specialty Start Date End Date Leeann Castillo APRN-CNP [address] [facility] [address] [place] [address] PCP - General Internal Medicine 11/15/23 Emergency Preparedness Manager Relationship Specialty Start Date End Date Leeann Castillo APRN-CNP [address] [facility] [address] [place] [address] PCP - General Internal Medicine 11/15/23 Emergency Preparedness Manager Relationship Specialty Start Date End Date Leeann Castillo APRN-CNP [address] [facility] [address] [place] [address] PCP - General Internal Medicine 11/15/23 Emergency Preparedness Manager Relationship Specialty Start Date End Date Leeann Castillo APRN-CNP [address] [facility] [address] [place] [address] PCP - General Internal Medicine 11/15/23 Emergency Preparedness Manager Relationship Specialty Start Date End Date Leeann Castillo APRN-CNP [address] [facility] [address] [place] [address] PCP - General Internal Medicine 11/15/23 Emergency Preparedness Manager Relationship Specialty Start Date End Date Leeann Castillo APRN-CNP [address] [facility] [address] [place] [address] PCP - General Internal Medicine 11/15/23 Emergency Preparedness Manager Relationship Specialty Start Date End Date Leeann Castillo APRN-CNP [address] [facility] [address] [place] [address] PCP - General Internal Medicine 11/15/23 Emergency Preparedness Manager Relationship Specialty Start Date End Date Leeann Castillo APRN-CNP [address] [facility] [address] [place] [address] PCP - General Internal Medicine 11/15/23 Emergency Preparedness Manager Relationship Specialty Start Date End Date Leeann Castillo APRN-CNP [address] [facility] [address] [place] [address] PCP - General Internal Medicine 11/15/23 Emergency Preparedness Manager Relationship Specialty Start Date End Date Leeann Castillo APRN-CNP [address] [facility] [address] [place] [address] PCP - General Internal Medicine 11/15/23 Emergency Preparedness Manager Relationship Specialty Start Date End Date Leeann Castillo APRN-CNP [address] [facility] [address] [place] [address] PCP - General Internal Medicine 11/15/23 Emergency Preparedness Manager Relationship Specialty Start Date End Date Leeann Castillo APRN-CNP [address] [facility] [address] [place] [address] PCP - General Internal Medicine 11/15/23 Emergency Preparedness Manager Relationship Specialty Start Date End Date Tom Paniagua MD [address] [place] [address] PCP - General Internal Medicine 01/30/23 Emergency Preparedness Manager Relationship Specialty Start Date End Date Tom Paniagua MD [address] [place] [address] PCP - General Internal Medicine 01/30/23 Emergency Preparedness Manager Relationship Specialty Start Date End Date Leeann Castillo APRN-CNP [address] [facility] [address] [place] [address] PCP - General Internal Medicine 11/15/23 Emergency Preparedness Manager Relationship Specialty Start Date End Date Tom Paniagua MD [address] [place] [address] PCP - General Internal Medicine 01/30/23 Emergency Preparedness Manager Relationship Specialty Start Date End Date Tom Paniagua MD [address] [place] [address] PCP - General Internal Medicine 01/30/23 Emergency Preparedness Manager Relationship Specialty Start Date End Date Leeann Castillo APRN-MONEY COUNTER [address] [facility] [address] [place] [address] PCP - General Internal Medicine 11/15/23 Emergency Preparedness Manager Relationship Specialty Start Date End Date Tom Paniagua MD [address] [place] [address] PCP - General Internal Medicine 01/30/23 Emergency Preparedness Manager Relationship Specialty Start Date End Date Tom Paniagua MD [address] [place] [address] PCP - General Internal Medicine 01/30/23 Emergency Preparedness Manager Relationship Specialty Start Date End Date Tom Paniagua MD [address] [place] [address] PCP - General Internal Medicine 01/30/23 Emergency Preparedness Manager Relationship Specialty Start Date End Date Tom Paniagua MD [address] [place] [address] PCP - General Internal Medicine 01/30/23 Emergency Preparedness Manager Relationship Specialty Start Date End Date Leeann Castillo APRN-MONEY COUNTER [address] [facility] [address] [place] [address] PCP - General Internal Medicine 07/16/24 Gita Watts DO [address] [place] [address], [address] [address] Consulting Physician Cardiology 07/16/24 Emergency Preparedness Manager Relationship Specialty Start Date End Date Leeann Castillo APRN-MONEY COUNTER [address] [facility] [address] [place] [address] PCP - General Internal Medicine 11/15/23 Reason for Visit (unrecogniz ed section and content) Reason Comments Follow-up MAWE Reason Comments Follow-up 8 month Follow up fo r Coronary Artery Disease Specialty Diagnoses / Procedures Referred By Ish t Referred To Contact Cardiology Diagnoses CAD, multiple vessel Procedures Follow Up In Cardiology Gita Watts, [address] [place] [address] [address], [address] [address] Phone: tel: fax: Gita Watts, DO [address] [place] [address] [address], [address] [address] Phone: tel: fax: Referral ID Status Reason Start Date Expiration Date V isits Requested Visits Authorized [id number] Authorized 07/16/2024 07/16/2025 1 1 Reason Comments Nail care Tom Khan is a 69 y.o. male. Established patient presents today for 2 week fuv for ulcer on left hallux. PCP: Leeann Castillo 01/07/25, A1C: 6.0, BS: 130. SS12 Reason Comments Pre-op Exam Pre op exam Reason Comments Follow-up Established patient presents today for 2 week fuv for ulcer on left hallux. PCP: Leeann Castillo 01/07/25, A1C: 6.0, BS: 213 Reason Comments Toe Problem Established patient presents today for ulcer on LGT. Patient states he noticed it about a week ago, and also relates swelling, states it's been swollen for about 2 weeks. Patient rleates falling stubbing left 2nd toe, states he thinks it may be broken, states it was bruised. Has been using neosporin. Pt also requesting nail care. PCP: Dr. Mini RUIZ 11/19/24, A1C: 7.2, BS: 105, SS: 11.5 Reason Comments Follow-up F/u from ER for a fa ll. Said he thinks maybe it was from a medication he is taking. Has been having episodes of anxiousness so they upped his rispirdone and that when he started becoming off balance. Lowered it and his balance is better. He is now currently taking one risperidone in the AM and one PM. Reason Onset Date Comments New Patient 01/08/2025 Reason Comments Follow-up Urinary Retention Reason Comments DM Foot Care PCP: Dr. Mini RUIZ , A1C: 7.2, BS: 196, SS: 11.5 Reason Comments Follow-up BP was high this mor maynor ( after having coffee) , having a lot of anxiety. Stiffness in armendariz and right shoulder pain. Reason Comments Follow-up Abdominal Pain He states the left s ided pain has subsided. Constipation He states he has a b owel movement every other day or every 2 days. No straining or blood. He reports a urgency to have a BM. Reason Comments Follow-up Abdominal Pain He reports left side d abdominal pain. He states he has a terrible amount of gas. He has a bowel movement every 2 days. He does feel like he empties. Reason Comments New Patient Abdominal Pain He reports upper abd ominal pain and on both sides. reports constipation with occasional miralax Reason Comments Follow-up Not able to have sx until next year, discuss B12 Reason Comments MNT - Individual Specialty Diagnoses / Procedures Referred By Ish t Referred To Contact Endocrinology, Diabetes & Metabolism Diagnoses Type 2 diabetes mellitus with diabetic peripheral angiopathy without gangrene, with long-term current use of insulin ([facility]) Alea Mckenzie MD [address] [place] [address] [facility]utrition [facility] [address] [place] [address] Referral ID Status Reason Start Date Expiration Date Visits Requested Visits Authorized [id number] Pending Review Specialty Services Required 12/06/2023 12/05/2024 1 1 Reason Comments Follow-up New pt/establish car e SOB/feet hurt Reason Comments New Patient Gall Stones Reason Comments New Patient Specialty Diagnoses / Procedures Referred By Ish t Referred To Contact Urology Diagnoses Numbness in both legs Mynor Steen MD [address] [facility] [address] [place] [address] [facility] [address] [place] [address] Referral ID Status Reason Start Date Expiration Date Visits Requested Visits Authorized [id number] Pending Review Specialty Services Required 11/01/2023 10/31/2024 1 1 Reason Comments Follow-up Stopped atorvastatin on own 03/05/2024 d/t possible SE, needs B12 refill, stomach ache issues/anxiety/OCD Reason Onset Date Comments Med Refill 03/24/2024 Reason Comments Post-op 6 week post op s/p l umbar decompression with posterolateral fusion Reason Comments transition care Reason Onset Date Comments Hospital Follow-up 09/24/2023 Reason Comments Follow-up +PVR Reason Comments Back Pain Specialty Diagnoses / Procedures Referred By Ish narvaez Referred To Contact Pain Medicine Diagnoses Spinal stenosis of lumbar region without neurogenic claudication Tom Paniagua, DO [address] [place] [address] Gita Sutton MD [address] [place] [address] Referral ID Status Reason Start Date Expiration Date V isits Requested Visits Authorized [id number] Pending Review 09/11/2023 09/10/2024 1 1 Reason Comments Diabetes Reason Onset Date Comments Med Refill 09/13/2023 Reason Comments right side Reason Comments Follow-up Completed labs and t esting and saw specialist. Would like the bottom of his feet looked at Reason Comments Follow-up Face to Face for janneth betic shoes Reason Onset Date Comments Med Refill 12/26/2023 Reason Comments Med Refill Reason Comments Follow-up Edema in feet and le gs, still achy in joints, neck stiffness Reason Comments Pain Reason Comments DM Foot Care Tom Khan is a 68 y.o. male. Established pt presents for diabetic nail care, patient relates 08/26/2024 he was at [facility] ER for swelling, cellulitis. Ultra sound was negative for Blood clots. PCP: Dr. Mini RUIZ 03/14/24, A1C: 7.0, BS: 200, SS: 11.5 Reason Comments Leg Swelling Bilateral lower leg swelling and redness for the last week. Was seen at urgent care and placed on augmentin. Reports saw mild improvement, but now getting worse. Reason Comments DM Foot Care Established pt prese nts for diabetic nail care, and fuv for right foot ulceration. PCP: Dr. Mini RUIZ 03/14/24, A1C: 7.0, BS: 149, SS: 11.5 Reason Comments Wound Check Tom Khan is a 68 y.o. male, Dr. Mc Chatman patient, Established pt presents today for wound check, right foot. Pt continues daily with gentamicin ointment, and stopped wearing surgical shoe 2 weeks ago. Relates right ankle stiffness started 2 weeks ago. NKI. PCP: Dr. Mini RUIZ 03/14/24, A1C: 7.0, BS: 284, SS: 11.5). Reason Comments Foot Wound Check Tom Khan is a 68 y.o. male who presents for Wound Check Right foot. Patient relates he stopped wearing surgical shoe 2 weeks ago. Patient stopped dressing 1 week ago. PCP: Dr. Mini RUIZ 03/14/24, A1C: 7.0, BS: 130, SS: 11.5 Reason Comments Follow-up 6 m Specialty Diagnoses / Procedures Referred By Ish t Referred To Contact Cardiology Diagnoses CAD, multiple vessel Procedures Follow Up In Cardiology Gita Watts DO [address] [facility] [address], [address] [address] Phone: tel: fax: Gita Watts, DO [address] [facility] [address], [address] [address] Phone: tel: fax: Referral ID Status Reason Start Date Expiration Date V isits Requested Visits Authorized [id number] Authorized 01/22/2024 01/21/2025 1 1 Reason Comments Radio Gen RMP Reason Comments Follow-up 3 months Specialty Diagnoses / Procedures Referred By Ish narvaez Referred To Contact Cardiology Diagnoses CAD, multiple vessel Procedures Follow Up In Cardiology Tesha Gavin, CRIMINAL JUSTICE PROFESSOR-MONEY COUNTER [address] [facility] [address], [address] [address] Gita Watts, DO [address] [facility] [address], [address] [address] Referral ID Status Reason Start Date Expiration Date V isits Requested Visits Authorized [id number] Authorized 10/17/2023 10/16/2024 1 1 Reason Comments Hospital Follow-up [facility] discharge 10/08 Reason Comments Illness Uri x 2 weeks- concerned about cough/ sob Source Comments (unrecognize d section and content) In the event this informatio n is protected by the Federal Confidentiality of Alcohol and Drug Abuse Patient Records regulations: The Federal rules restrict any use of the information to criminally investigate or prosecute any alcohol or drug abuse patient.[facility] the event this information is protected by the Federal Confidentiality of Alcohol and Drug Abuse Patient Records regulations: The Federal rules restrict any use of the information to criminally investigate or prosecute any alcohol or drug abuse patient.[facility] FOR RECORDS PERTAINING TO PATIENTS WHO [...] BE BASED ON THE PRIMARY CLINICAL RECORDS. [facility] provides no warranty or guarantee of the accuracy or completeness of information in this document.
--- OUTSIDE RECORDS SUMMARY | 2025-03-21 17:42 | XMS_ITS | Encounter Summary ---
Author Organization [facility] [employer] tem Address [id number] [address] [place] [address] Care Team Providers Care Tractor Operator Name Role Phone Leeann Marshall COUNSELOR AT LAW-CLOTH CALENDER Primary Care Provider [phone]- [phone] Reason for Visit * Reason Comments Med Refill Encounter Details Date Type Department Care Team (Late st Contact Info) Description 10/12/2022 Refill [facility] - Family Medicine [address] [place] [address] Tom Pires, DO [address] [place] [address] Type 2 diabetes mellitus without complications ([facility]) Social History Tobacco Use Types Packs/Day [...] Morse MD [address] [place] [address] Leeann Marshall APRN-CLOTH CALENDER [address] [facility] [address] [place] [address] 07/22/2025 11:00 AM EST Office Visit [facility], A Department of [facility] [address] [facility] [address] [place] [phone] Alea Mckenzie MD [address] [facility] [place] [address] 12/14/2025 3:15 PM EDT Office Visit [facility] [address] [place] [address] [address] [facility] [place] [place] [phone] Nathan Blankenship MD [address] [place] [address] documented as of this encounter Visit Diagnoses Diagnosis Type 2 diabetes mellitus without complications ([facility]-HCC) documented in this encounter Additional Health Concerns Assessment Noted Time PHQ-9 Depression Total Score: 0 10/11/19 23 3:10 PM EST documented as of this encounter Care Teams Tractor Operator Relationship Specialty Start Date End Date Leeann Marshall APRN-QI [address] [facility] [address] [place] [address] PCP - General Internal Medicine 11/15/23 documented as of this encounter
--- OUTSIDE RECORDS SUMMARY | 2025-03-21 17:42 | XMS_ITS | Encounter Summary ---
Author Organization [facility] [employer] Sys tem Address [facility]-[id number] [address] [place] [address] Care Team Providers Care Tank Crewmember Name Role Phone Leeann Marshall LUSTERER-OPEN HEARTH LABORER Primary Care Provider [phone]- [phone] Reason for Visit * Reason Comments Med Change Request Encounter Details Date Type Department Care Team (Late st Contact Info) Description 01/16/2023 Refill [facility] - Family Medicine [address] [place] [address] Tom Pires, [address] [place] [address] Coronary arteriosclerosis Social History Tobacco Use Types Packs/Day Years [...] encounter Miscellaneous Notes * Telephone Encounter - Christina Boyle MA - 01/16/2023 10:23 AM EDT started * Telephone Encounter - Christina Boyle MA - 01/16/2023 10:23 AM EDT No PA needed per insurance for this med. Confirmed with ins company documented in this encounter Plan of Treatment Upcoming Encounters Date Type Department Care Team (Late st Contact Info) Description 06/19/2025 10:20 AM EDT Office Visit [facility] Internal Medicine/Kayden Morse MD [address] [facility] [address] [place] [phone] Leeann Marshall APRN-CNP [address] [facility] [address] [place] [address] 07/22/2025 11:00 AM EST Office Visit [facility] Adult Endocr[facility]ology, A Department of [facility] [address] [facility] [address] [place] [address] Alea Mckenzie MD [address] [facility] [place] [address] 12/14/2025 3:15 PM EDT Office Visit [facility] [address] [place] [address] [place] [address] Nathan Blankenship MD [address] [place] [address] documented as of this encounter Visit Diagnoses Diagnosis Coronary arteriosclerosis Coronary atherosclerosis of unspecified type of vessel, hopi or graft documented in this encounter Additional Health Concerns Assessment Noted Time PHQ-9 Depression Total Score: 1 01/16/20 23 3:48 PM EDT documented as of this encounter Care Teams Tank Crewmember Relationship Specialty Start Date End Date Leeann Marshall APRN-CNP [address] [facility] [address] [place] [address] PCP - General Internal Medicine 11/15/23 documented as of this encounter
--- OUTSIDE RECORDS SUMMARY | 2025-03-21 17:42 | XMS_ITS | Encounter Summary ---
Author Organization [facility] [employer] Sys tem Address [facility]-[id number] [address] [place] [address] Care Team Providers Care Building Admin Name Role Phone Leeann Marshall MILIEU THERAPIST-MANAGER OPERATIONS AND PROCUREMENT Primary Care Provider [phone]- [phone] Encounter Details Date Type Department Care Team (Late st Contact Info) Description 10/05/2022 Telephone [facility] - Family Medicine [address] [place] [address] Christina Boyle MA Social History Tobacco Use Types Packs/Day [...] Telephone Encounter - Christina Boyle MA - 10/05/2022 3:29 PM EST Pt dropped off fmla forms, are we doing this for intermittent leave and for what length of time? And diagnosis? If we are, just let me know, so I can fill these out for you Thank you * Telephone Encounter - Tom Valerio DO - 10/05/2022 3:29 PM EST I am not sure either. I thought he was retired now in so does not need disability paperwork. You may need to talk to his to find out with this is about. * Telephone Encounter - Christina Boyle MA - 10/05/2022 3:29 PM EST Pt states he is already off on leave with [employer] and he thinks he needs more paperwork filled out for his rotator cuff, explained if he is off already, he won't need paperwork filled out-since not working. He said he will talk to dr valerio at appt on 10/11. I am holding at my desk in case needed after that appt. documented in this encounter Plan of Treatment Upcoming Encounters Date Type Department Care Team (Late st Contact Info) Description 06/19/2025 10:20 AM EDT Office Visit [facility] Internal [facility]/Kayden Morse MD [address] [facility] [address] [place] [address] Leeann Marshall, MILIEU THERAPIST-MANAGER OPERATIONS AND PROCUREMENT [address] [facility] [address] [place] [address] 07/22/2025 11:00 AM EST Office Visit [facility], A Department of [facility] [address] [place] [address] Alea Mckenzie MD [address] [place] [address] 12/14/2025 3:15 PM EDT Office Visit [facility] [address] [place] [address] [place] [address] Nathan Blankenship MD [address] [place] [address] documented as of this encounter Visit Diagnoses Not on filedocumented in this encounter Additional Health Concerns Assessment Noted Time PHQ-9 Depression Total Score: 6 09/25/19 23 3:43 PM EST documented as of this encounter Care Teams Building Admin Relationship Specialty Start Date End Date Leeann Marshall APRN-MANAGER OPERATIONS AND PROCUREMENT [address] [facility] [address] [place] [address] PCP - General Internal Medicine 11/15/23 documented as of this encounter
--- OUTSIDE RECORDS SUMMARY | 2025-03-21 17:42 | XMS_ITS | Encounter Summary ---
Author Organization [employer] Address [facility]-[id number] [address] [place] [address] Care Team Providers Care Electric Furnace Operator Name Role Phone Leeann Marshall ELECTRONIC ORGAN MECHANIC-FOOD SAFETY OFFICER Primary Care Provider Encounter Details Date Type Department Care Team (Late Contact Info) Description 01/30/2023 Orders Only [facility] Internal [facility] - Family Medicine [address] [place] [address] Tom Pires, [address] [place] [address] Social History Tobacco Use Types Packs/Day Years [...] Morse MD [address] [place] [address] Leeann Marshall APRN-CNP [address] [facility] [address] [place] [address] 07/22/2025 11:00 AM EST Office Visit [facility], A Department of [facility] [address] [facility] [address] [place] [phone] Alea Mckenzie MD [address] [facility] [place] [address] 12/14/2025 3:15 PM EDT Office Visit [facility] [address] [place] [address] [place] [address] Nathan Blankenship MD [address] [place] [address] documented as of this encounter Visit Diagnoses Not on filedocumented in this encounter Additional Health Concerns Assessment Noted Time PHQ-9 Depression Total Score: 1 01/16/20 23 3:48 PM EDT documented as of this encounter Care Teams Electric Furnace Operator Relationship Specialty Start Date End Date Leeann Marshall APRN-CNP [address] [facility] [address] [place] [id number] PCP - General Internal Medicine 11/15/23 documented as of this encounter
--- OUTSIDE RECORDS SUMMARY | 2025-03-21 17:42 | XMS_ITS | Encounter Summary ---
Author Organization [facility] Address [address] [place] [address] Phone Care Team Providers Care Mortgage Closer Name Role Phone Alkakrunal Tom Hiram DO Primary Care Provider [phone] Veronica De Jesus CUSTOMER ASSISTANCE ASSOCIATE-FLY FISHING GUIDE Primary Care Provider U Leeann Monroy CUSTOMER ASSISTANCE ASSOCIATE-FLY FISHING GUIDE Primary Care Provider [phone] Leeann Marshall CUSTOMER ASSISTANCE ASSOCIATE-FLY FISHING GUIDE Primary Care Provider [phone] Riley Watts DO Unavailable [phone] Encounter Details Date Type Department Care Team (Late st Contact Info) Description 07/22/2023 Lab Requisition [facility] [address] [place] [phone] Nacho Harden, PAMarilu [address] [place] [address] Urge incontinence Social History Tobacco Use Types [...] Description 03/24/2026 10:00 AM EDT Office Visit [facility] [address] [facility] [address] [place] [address] Riley Watts DO [address] [facility] [address], [address] [place] [address] documented as of this encounter Procedures Procedure Name Priority Date/Time Associated Diagnosis Comments URINE CULTURE Routine 07/21/2023 11:49 AM EST Urge incontinence documented in this encounter Results * Urine Culture (07/21/2023 11:49 AM EST) Urine Culture No growth 07/23/2023 2:29 PM EST [facility] Urine 07/21/2023 11:4 9 AM EST 07/22/2023 7:49 PM EST us Nacho Harden PA-C LAB MICROBIOLOGY - GENERAL O RDERABLES Final Result [facility] [address] [facility] [address] [place] [address] documented in this encounter Visit Diagnoses Diagnosis Urge incontinence documented in this encounter Care Teams Mortgage Closer Relationship Specialty Start Date End Date Tom Pires DO PCP - General 03/15/23 10/16/23 Veronica De Jesus CUSTOMER ASSISTANCE ASSOCIATE-FLY FISHING GUIDE PCP - General Family Medicine 10/17/23 12/03/23 Leeann Marshall, CUSTOMER ASSISTANCE ASSOCIATE-FLY FISHING GUIDE PCP - General Internal Medicine 12/04/23 07/15/24 Leeann Marshall, CUSTOMER ASSISTANCE ASSOCIATE-FLY FISHING GUIDE [address] [facility] [address] [place] [address] PCP - General Internal Medicine 07/16/24 Riley Watts DO [address] [facility] [address], [address] [place] [address] Consulting Physician Cardiology 07/16/24 documented as of this encounter
--- OUTSIDE RECORDS SUMMARY | 2025-03-21 17:43 | XMS_ITS | Encounter Summary ---
Author Organization [facility] Sys tem Address [facility][id number] [address] [place] [address] Care Team Providers Care Director Of Corporate Responsibility Name Role Phone Leeann Marshall REGISTERED NURSE MIDWIFE-TRAVOGRAPH OPERATOR Primary Care Provider [phone] Encounter Details Date Type Department Care Team (Late st Contact Info) Description 12/28/2022 Telephone [facility] - Family Medicine [address] [place] [address] Tom Pires, [address] [place] [address] Social History Tobacco Use Types Packs/Day Years Used Date Smoking Tobacco: Never Smokeless Tobacco: Never Alcohol Use Standard Drinks/Week Comments No 0 (1 standard drink = 0.6 oz pur e alcohol) PHQ-2 Answer Date Recorded Total Score 0 12/25/2022 Childcare Answer Date Recorded Childcare Unknown 02/12/2019 [...] have Coronavirus / COVID-19? No / Unsure 12/04/2022 10:59 AM EDT documented as of this encounter Miscellaneous Notes * Telephone Encounter - Faith Seals - 12/28/2022 12:42 PM EDT Due for welcome to medicare LM on 12/28 documented in this encounter Plan of Treatment Upcoming Encounters Date Type Department Care Team (Late st Contact Info) Description 06/19/2025 10:20 AM EDT Office Visit [facility]/Kayden Morse MD [address] [facility] [address] [place] [address] Leeann Marshall APRN-TRAVOGRAPH OPERATOR [address] [facility] [address] [place] [address] 07/22/2025 11:00 AM EST Office Visit [facility], A Department of [place] [facility] [address] [facility] [address] [place] [address] Alea Mckenzie MD [address] [facility] [place] [address] 12/14/2025 3:15 PM EDT Office Visit [facility] [address] [place] [address] [address] [facility] [place] [address] Nathan Blankenship MD [address] [place] [address] documented as of this encounter Visit Diagnoses Not on filedocumented in this encounter Additional Health Concerns Assessment Noted Time PHQ-9 Depression Total Score: 0 12/26/19 23 2:54 PM EDT documented as of this encounter Care Teams Director Of Corporate Responsibility Relationship Specialty Start Date End Date Leeann Marshall APRN-CNP [address] [facility] [address] [place] [address] PCP - General Internal Medicine 11/15/23 documented as of this encounter
--- OUTSIDE RECORDS SUMMARY | 2025-03-21 17:43 | XMS_ITS | Encounter Summary ---
Author Organization [facility] [employer] Sys tem Address [facility]-[id number] [address] [place] [address] Care Team Providers Care Piccolo Mechanic Name Role Phone Leeann Marshall MUD ANALYSIS WELL LOGGING CAPTAIN-FIRE HAZARD INSPECTOR Primary Care Provider Reason for Visit * Reason Comments Med Refill Encounter Details Date Type Department Care Team (Late st Contact Info) Description 02/25/2024 Refill [facility] Internal Medicine - Family Medicine [address] [place] [address] Tom Pires, DO [address] [place] [address] Deficiency of other specified B group vitamins Social History Tobacco Use Types Packs/Day Years [...] any clubs o r organizations such as nondenominational groups, unions, fraternal or athletic groups, or [...] Answer Date Recorded Total Score 0 12/31/2023 [facility] of Occupat ional Health - [...] Recorded Do you need help finding a [facility] career center and/or a training program? No 04/17/2023 Hunger Screening Answer Date Recorded Within the past 12 months we worried whether our food would run out before we got money to buy more. Never True 02/06/2024 Within the past 12 months th e food we bought just didn't last and we didn't have money to get more. Never True 02/06/2024 Purpose - Life Answer Date Recorded I [...] Description 06/19/2025 10:20 AM EDT Office Visit [facility] Internal Medicine/Kayden Morse MD [address] [facility] [address] [place] [address] Leeann Marshall APRN-FIRE HAZARD INSPECTOR [address] [facility] [address] [place] [address] 07/22/2025 11:00 AM EST Office Visit [facility] Adult Endocrinology, A Department of [facility] [address] [facility] [address] [place] [address] Alea Mckenzie MD [address] [facility] [place] [address] 12/14/2025 3:15 PM EDT Office Visit [facility] [address] [place] [address] [place] [address] Nathan Blankenship MD [address] [place], [place] [id number] documented as of this encounter Goals Goal Patient Goal Type Associated Problems Recent Progress Patient-Stated? Author Return home General Yes Adeline Tran, RN Note: Evaluation of progress towards goal: Plan to return home with spouse. documented as of this encounter Visit Diagnoses Diagnosis Deficiency of other specified B group vitamins documented in this encounter Additional Health Concerns Assessment Noted Time PHQ-9 Depression Total Score: 0 12/31/19 24 7:00 AM EDT documented as of this encounter Care Teams Piccolo Mechanic Relationship Specialty Start Date End Date Leeann Marshall APRN-QI [address] [facility] [address] [place] [address] PCP - General Internal Medicine 11/15/23 documented as of this encounter
--- OUTSIDE RECORDS SUMMARY | 2025-03-21 17:43 | XMS_ITS | Encounter Summary ---
Author Organization [facility] [employer] tem Address [facility]-[id number] [address] [place] [address] Care Team Providers Care Physical Therapy Aid Name Role Phone Leeann Marshall APRN-QI Primary Care Provider [phone] Reason for Visit * Reason Onset Date Comments Med Refill 10/06/2024 Encounter Details Date Type Department Care Team (Late st Contact Info) Description 10/06/2024 Refill [facility] Internal Medicine/Kayden Morse MD [address] [facility] [address] [place] [phone] Leeann Marshall APRN-CNP [address] [facility] [address] [place] [address] Social History Tobacco Use Types Packs/Day Years [...] How often do you attend chur or latter day services? More than 4 times per year 04/17/2023 Do you belong to any clubs o r organizations such as latter-day groups, unions, fraternal or athletic groups, or [...] Answer Date Recorded Total Score 0 06/10/2024 [facility] - Occupational Stress Questionnaire Answer Date [...] Recorded Do you need help finding a [facility] and/or a training program? No [...] 06/19/2025 10:20 AM EDT Office Visit [facility] Internal Medicine/Kayden Morse MD [address] [facility] [address] [place] [address] Leeann Marshall APRN-INSURANCE HEALTHCARE REPRESENTATIVE [address] [facility] [address] [place] [address] 07/22/2025 11:00 AM EST Office [facility] Adult Endocrinology, A Department of [facility] [address] [facility] [address] [place] [address] Alea Mckenzie MD [address] [facility] [place] [address] 12/14/2025 3:15 PM EDT Office Visit [facility] [address] [place] [address] [place] [address] Nathan Blankenship MD [address] [place] [address] documented as of this encounter Goals Goal [...] documented as of this encounter Care Teams Physical Therapy Aid Relationship Specialty Start Date End Date Leeann Marshall APRN-QI [address] [facility] [address] [place] [address] PCP - General Internal Medicine 11/15/23 documented as of this encounter
--- OUTSIDE RECORDS SUMMARY | 2025-03-21 17:43 | XMS_ITS | Encounter Summary ---
Author Organization [facility] Address [address] [place] [address] Phone Care Team Providers Care Electrical Wiring Lineman Name Role Phone AlkakrunalTom DO Primary Care Provider +1- [phone] Veronica De Jesus CIRCULAR RIPSAW OPERATOR-DAM WORKER Primary Care Provider U Leeann Monroy CIRCULAR RIPSAW OPERATOR-DAM WORKER Primary Care Provider +[phone] Leeann Marshall CIRCULAR RIPSAW OPERATOR-DAM WORKER Primary Care Provider +[phone] Riley Watts DO Unavailable Encounter Details Date Type Department Care Team (Late st Contact Info) Description 02/05/2023 Orders Only [facility] [address] [place] [address] Conversion, Onbase Social History Tobacco Use Types Packs/Day Years [...] Description 03/24/2026 10:00 AM EDT Office Visit [facility] [address] [facility] [address] [place] [address] Riley Watts DO [address] [facility] [address] [place] [address] Scheduled Orders Name Type Priority Associated Diagnoses Orde r Schedule OUTSIDE LAB SCAN Lab Ordered: 02/05/2023 documented as of this encounter Visit Diagnoses Not on filedocumented in this encounter Care Teams Electrical Wiring Lineman Relationship Specialty Start Date End Date Tom Pires HiramDO PCP - General 03/15/23 10/16/23 Veronica De Jesus, CIRCULAR RIPSAW OPERATOR-[facility] PCP - General Family Medicine 10/17/23 12/03/23 Leeann Marshall, CIRCULAR RIPSAW OPERATOR-[facility] PCP - General Internal Medicine 12/04/23 07/15/24 Leeann Marshall, CIRCULAR RIPSAW OPERATOR-[facility] [address] [facility] [address] [place] [address] PCP - General Internal Medicine 07/16/24 Riley Watts DO [address] [facility] [address] [place] [address] Consulting Physician Cardiology 07/16/24 documented as of this encounter
--- OUTSIDE RECORDS SUMMARY | 2025-03-21 17:43 | XMS_ITS | Encounter Summary ---
Author Organization [facility] Address [address] [place] [address] Phone Care Team Providers Care Single Fold Machine Operator Name Role Phone AlkakrunalTom DO Primary Care Provider [phone]- [phone] Veronica De Jesus STAFFING RN-SENIOR ASIC DESIGN ENGINEER Primary Care Provider U Leeann Monroy STAFFING RN-SENIOR ASIC DESIGN ENGINEER Primary Care Provider [phone] Leeann Marshall STAFFING RN-SENIOR ASIC DESIGN ENGINEER Primary Care Provider +[phone] Riley Watts DO Unavailable Encounter Details Date Type Department Care Team (Late st Contact Info) Description 01/15/2023 Orders Only [facility] [address] [place] [address] Conversion, Onbase Social History Tobacco Use Types [...] Description 03/24/2026 10:00 AM EDT Office Visit [facility] [address] [facility] [address] [place] [address] Riley Watts DO [address] [facility] [address] [place] [address] Scheduled Orders Name Type Priority Associated Diagnoses Orde r Schedule OUTSIDE LAB SCAN Lab Ordered: 01/15/2023 OUTSIDE LAB SCAN Lab Ordered: 01/15/2023 documented as of this encounter Visit Diagnoses Not on filedocumented in this encounter Care Teams Single Fold Machine Operator Relationship Specialty Start Date End Date Tom PiresDO PCP - General 03/15/23 10/16/23 Veronica De Jesus, STAFFING RN-SENIOR ASIC DESIGN ENGINEER PCP - General Family Medicine 10/17/23 12/03/23 Leeann Marshall, STAFFING RN-SENIOR ASIC DESIGN ENGINEER PCP - General Internal Medicine 12/04/23 07/15/24 Leeann Marshall, STAFFING RN-SENIOR ASIC DESIGN ENGINEER [address] [facility] [address] [place] [address] PCP - General Internal Medicine 07/16/24 Riley Watts DO [address] [facility] [address] [place] [address] Consulting Physician Cardiology 07/16/24 documented as of this encounter
--- OUTSIDE RECORDS SUMMARY | 2025-03-21 17:43 | XMS_ITS | Encounter Summary ---
Author Organization [facility] [employer] tem Address [facility][id number] [address] [place] [address] Care Team Providers Care Organizational Development Director Name Role Phone Leeann Marshall MAT INSPECTOR-DIGITAL MEDIA PRODUCER Primary Care Provider [phone] Reason for Visit * Reason Onset Date Comments Med Refill 10/06/2024 Encounter Details Date Type Department Care Team (Late st Contact Info) Description 10/06/2024 Refill [facility] Internal Medicine/Kayden Morse MD [address] [place] [address] Cony Bahena CMA Social History Tobacco Use Types Packs/Day [...] often do you attend chur ch or hoahaoism services? More than 4 times per year 04/17/2023 Do you belong to any clubs o r organizations such as worship groups, unions, fraternal or athletic groups, or [...] Recorded Total Score 0 06/10/2024 [facility] of Occupat ional Health - Occupational Stress [...] Recorded Do you need help finding a [facility] career center and/or a training program? [...] encounter Miscellaneous Notes * Telephone Encounter - Kori Burnett - 10/06/2024 1:49 PM EST Pt is out of lasix since he doubled up. Can you please send to [facility]? * Telephone Encounter - TERRY Monteiro - 10/06/2024 1:49 PM EST Rx sent documented in this encounter Plan of Treatment Upcoming Encounters Date Type Department Care Team (Late st Contact Info) Description 06/19/2025 10:20 AM EDT Office Visit [facility] [place] [facility] Internal Medicine/Kayden Morse MD [address] [facility] [address] [place] [phone] Leeann Marshall APRN-CNP [address] [facility] [address] [place] [address] 07/22/2025 11:00 AM EST Office Visit [facility], A Department of [facility] [address] [place] [phone] Alea Mckenzie MD [address] [place] [address] 12/14/2025 3:15 PM EDT Office Visit [facility] [address] [place] [address] [place] [address] Nathan Blankenship MD [address] [place] [address] documented as of this encounter Goals Goal [...] documented as of this encounter Care Teams Organizational Development Director Relationship Specialty Start Date End Date Leeann Marshall APRN-QI [address] [facility] [address] [place] [address] PCP - General Internal Medicine 11/15/23 documented as of this encounter
--- OUTSIDE RECORDS SUMMARY | 2025-03-21 17:43 | XMS_ITS | Encounter Summary ---
Author Organization [facility] [employer] Address [facility]-[id number] [address] [place] [address] Care Team Providers Care Blow Machine Tender Starch Spraying Name Role Phone eLeann Marshall RIPENING ROOM ATTENDANT-ACCOUNT ASSOCIATE Primary Care Provider Encounter Details Date Type Department Care Team (Late st Contact Info) Description 12/04/2022 Telephone [facility] - Diabetes [address] [facility] [address] [place] [phone] Shanice Rodríguez, SAMUEL Social History Tobacco Use Types Packs/Day Years [...] encounter Miscellaneous Notes * Telephone Encounter - Shanice Rodríguez RN - 12/04/2022 1:37 PM EDT Please call to set up sensor training appointment. Thanks, Agnieszka documented in this encounter Plan of Treatment Upcoming Encounters Date Type Department Care Team (Late st Contact Info) Description 06/19/2025 10:20 AM EDT Office Visit [facility] Internal Medicine/Kayden Morse MD [address] [facility] [address] [place] [phone] Leeann Marshall APRN-CNP [address] [facility] [address] [place] [address] 07/22/2025 11:00 AM EST Office Visit [facility] Adult Endocrinology, A Department of [facility] [address] [facility] [address] [place] [phone] Alea Mckenzie MD [address] [facility] [place] [address] 12/14/2025 3:15 PM EDT Office Visit [facility] [address] [place] [address] [phone] Nahtan Blankenship MD [address] [place] [address] documented as of this encounter Visit Diagnoses Not on filedocumented in this encounter Additional Health Concerns Assessment Noted Time PHQ-9 Depression Total Score: 0 10/11/19 23 3:10 PM EST documented as of this encounter Care Teams Blow Machine Tender Starch Spraying Relationship Specialty Start Date End Date Leeann Marshall APRN-CNP [address] [facility] [address] [place] [address] PCP - General Internal Medicine 11/15/23 documented as of this encounter
--- OUTSIDE RECORDS SUMMARY | 2025-03-21 17:43 | XMS_ITS | Encounter Summary ---
Author Organization [facility] Address [facility]-[id number] [address] [place] [address] Care Team Providers Care Metal Hardener Name Role Phone Leeann Marshall ALARM OPERATOR-NET UI DEVELOPER Primary Care Provider Encounter Details Date Type Department Care Team (Late Contact Info) Description 11/30/2022 Telephone [facility] Internal Medicine - Family Medicine [address] [place] [address] Sultana Mauricio CMA Social History Tobacco Use [...] have Coronavirus / COVID-19? No / Unsure 11/30/2022 2:52 PM EDT documented as of this encounter Plan of Treatment Upcoming Encounters Date Type Department Care Team (Late Contact Info) Description 06/19/2025 10:20 AM EDT Office Visit [facility] Internal Medicine/Kayden Morse MD [address] [facility] [address] [place] [address] Leeann Marshall APRN-CNP [address] [facility] [address] [place] [address] 07/22/2025 11:00 AM EST Office Visit [facility], A Department of [facility] [address] [facility] [address] [place] [address] Alea Mckenzie MD [address] [facility] [place] [address] 12/14/2025 3:15 PM EDT Office Visit [facility] [address] [place] [address] [address] [facility] [place] [phone] Nathan Blankenship MD [address] [place] [address] documented as of this encounter Visit Diagnoses Not on filedocumented in this encounter Additional Health Concerns Assessment Noted Time PHQ-9 Depression Total Score: 0 10/11/19 23 3:10 PM EST documented as of this encounter Care Teams Metal Hardener Relationship Specialty Start Date End Date Leeann Marshall APRN-CNP [address] [facility] [address] [place] [address] PCP - General Internal Medicine 11/15/23 documented as of this encounter
--- OUTSIDE RECORDS SUMMARY | 2025-03-21 17:43 | XMS_ITS | Encounter Summary ---
Author Organization [facility] Sys tem Address [facility]-[id number] [address] [place] [address] Care Team Providers Care Director Child Name Role Phone Leeann Marshall JEWELRY RACKER-EVENT MARKETING REPRESENTATIVE Primary Care Provider [phone]- [phone] Encounter Details Date Type Department Care Team (Late st Contact Info) Description 10/18/2022 Orders Only [facility] Internal Medicine - Family Medicine [address] [place] [address] Tom Pires, [address] [place] [address] Coronary arteriosclerosis (Primary Dx) Social History Tobacco [...] [facility] Internal Medicine/Kayden Morse MD [address] [facility] [address] [place] [address] Leeann Marshall APRN-CNP [address] [facility] [address] [place] [address] 07/22/2025 11:00 AM EST [facility], A Department of [facility] [address] [facility] [address] [place] [phone] Alea Mckenzie MD [address] [facility] [place] [address] 12/14/2025 3:15 PM EDT Office Visit [facility] [address] [place] [address] [place] [phone] Nathan Blankenship MD [address] [place] [address] documented as of this encounter Visit Diagnoses Diagnosis Coronary arteriosclerosis- Primary Coronary atherosclerosis of unspecified type of vessel, [place] or graft documented in this encounter Additional Health Concerns Assessment Noted Time PHQ-9 Depression Total Score: 0 10/11/19 23 3:10 PM EST documented as of this encounter Care Teams Director Child Relationship Specialty Start Date End Date Leeann Marshall APRN-CNP [address] [facility] [address] [place], [place] [phone] PCP - General Internal Medicine 11/15/23 documented as of this encounter
--- OUTSIDE RECORDS SUMMARY | 2025-03-21 17:43 | XMS_ITS | Encounter Summary ---
Author Organization [facility] Sys tem Address [facility]-[id number] [address] [place] [address] Care Team Providers Care Radar Repairer Name Role Phone Leeann Marshall FRONT DESK LEAD-AUTO SALVAGE WORKER Primary Care Provider [phone]- [phone] Encounter Details Date Type Department Care Team (Late st Contact Info) Description 10/17/2022 Orders Only [facility] Internal Medicine - Family Medicine [address] [place] [address] Tom Pires, [address] [place] [address] Coronary arteriosclerosis (Primary Dx) Social History Tobacco [...] [address] [facility] [address] [place] [address] Leeann Marshall APRN-CNP [address] [facility] [address] [place] [address] 07/22/2025 11:00 AM EST [facility] A Department of [facility] [address] [facility] [address] [place] [address] Alea Mckenzie MD [address] [facility] [place] [address] 12/14/2025 3:15 PM EDT Office Visit [facility] [address] [place] [address] [place] [address] Nathan Blankenship MD [address] [place] [address] documented as of this encounter Visit Diagnoses Diagnosis Coronary arteriosclerosis- Primary Coronary atherosclerosis of unspecified type of vessel, [place] or graft documented in this encounter Additional Health Concerns Assessment Noted Time PHQ-9 Depression Total Score: 0 10/11/19 23 3:10 PM EST documented as of this encounter Care Teams Radar Repairer Relationship Specialty Start Date End Date Leeann Marshall APRN-CNP [address] [facility] [address] [place], [place] [phone] PCP - General Internal Medicine 11/15/23 documented as of this encounter
--- OUTSIDE RECORDS SUMMARY | 2025-03-21 17:43 | XMS_ITS | Encounter Summary ---
Author Organization [facility] Address [address] [place] [address] Phone Care Team Providers Care Duplicating Machine Mechanic Name Role Phone Leeann Marshall CLOUD PHYSICIST-BLENDER OPERATOR Primary Care Provider [phone] Leeann Marshall CLOUD PHYSICIST-BLENDER OPERATOR Primary Care Provider +1 [phone] Riley Watts DO Unavailable [phone] Encounter Details Date Type Department Care Team (Late st Contact Info) Description 04/03/2024 Scanned Document [facility] [address] [place] [phone] Scanning, Generic Provider Social History Tobacco Use [...] Description 03/24/2026 10:00 AM EDT Office Visit [place] [address] [facility] [address] [place] [address] Riley Watts DO [address] [facility] [address] [place] [address] documented as of this encounter Visit Diagnoses Not on filedocumented in this encounter Additional Health Concerns Assessment Noted Time A fall risk assessment has been complete d for the patient 01/22/2024 2:17 PM EDT documented as of this encounter Care Teams Duplicating Machine Mechanic Relationship Specialty Start Date End Date Leeann Marshall APRN-BLENDER OPERATOR PCP - General Internal Medicine 12/04/23 07/15/24 Leeann Marshall APRN-QI [address] [facility] [address] [place] [address] PCP - General Internal Medicine 07/16/24 Riley Watts DO [address] [facility] [address] [place] [address] Consulting Physician Cardiology 07/16/24 documented as of this encounter
--- OUTSIDE RECORDS SUMMARY | 2025-03-21 17:43 | XMS_ITS | Encounter Summary ---
Author Organization [facility] Address [address] [place] [address] Phone Care Team Providers Care Asbestos Microscopist Name Role Phone Leeann Marshall HOOK AND EYE SEWING MACHINE OPERATOR-HOT MILL WORKER Primary Care Provider [phone] Riley Watts DO Unavailable [phone] Reason for Visit * Reason Onset Date Comments POC 03/12/2025 Encounter Details Date Type Department Care Team (Late st Contact Info) Description 03/12/2025 Telephone [facility] [address] [facility] [address] [place] [address] Lovely Torres LPN POC Social History Tobacco Use Types Packs/Day Years [...] encounter Miscellaneous Notes * Telephone Encounter - Lovely Torres LPN - 03/12/2025 1:42 PM EDT Fax received from [employer] Pre- Admission testing, requesting cardiac clearance, medication hold. Forms completed, cardiac clearance given, hold plavix and ASA for 5 days prior to procedure ( reverse total shoulder). Phoned surgeon's office orders discussed verbalized understanding. Orders faxed Phoned patient spoke with spouse, orders discussed verbalized understanding. To be scanned to chart. documented in this encounter Plan of Treatment Upcoming Encounters Date Type Department Care Team (Late st Contact Info) Description 03/24/2026 10:00 AM EDT Office Visit [facility] [address] [facility] [address] [place] [address] Riley Watts DO [address] [facility] [address] [place] [address] documented as of this encounter Visit Diagnoses Not on filedocumented in this encounter Additional Health Concerns Assessment Noted Time A fall risk assessment has been complete d for the patient 07/16/2024 11:25 AM EST documented as of this encounter Care Teams Asbestos Microscopist Relationship Specialty Start Date End Date Leeann Marshall APRN-HOT MILL WORKER [address] [facility] [address] [place] [address] PCP - General Internal Medicine 07/16/24 Riley Watts DO [address] [place] [address] 2, [facility] [address] [place] [address] Consulting Physician Cardiology 07/16/24 documented as of this encounter
--- NOTE | 2025-03-21 17:52 | ECG_ITS ---
The [facility] Test Date: 2025-03-21 Pat Name: JAE KHAN Department: Room: - Gender: Male Director Social Welfare: : 1955 Requested By: [id number] Order Number: [id number] Hortencia MD: MELODIE ALEJO M.D. Measurements Intervals [place] Rate: 78 P: 16 CA: 170 QRS: 100 QRSD: 120 T: 30 QT: 402 QTc: 436 Interpretive Statements 1100 Sinus rhythm 2450 Right bundle branch block 3634 Inferior myocardial infarction, age undetermined 9150 abnormal ECG Compared to ECG 07/26/2024 10:13:27 Right-axis deviation no longer present Myocardial infarct finding still present Electronically Signed On 03-22-2025 15:37:17 EDT by MELODIE ALEJO M.D.
--- NOTE | 2025-03-21 17:54 | CT_ITS ---
The [address] [address] Patient Name: JAE KHAN MRN: [id number] date: 1955 Sex: M Assigned Patient Location: ER Current Patient Location: ER Accession/Order Number: [id number] Exam Date: 03/21/2025 18:59 Report Date: 03/21/2025 19:01 At the request of: YI YOUNG Procedure: CT head/brain wo con CT BRAIN WITHOUT CONTRAST: CLINICAL HISTORY: altered mental state, fall 2 months ago COMPARISON: None TECHNIQUE: Contiguous axial unenhanced images were obtained through the brain. This CT exam was performed using one or more following dose reduction techniques: Automated exposure control, adjustment of the mA and/or kV according to patient size, or use of iterative reconstruction technique. FINDINGS: There is no evidence of midline shift, intra or extra-axial fluid collection, hemorrhage or CT evidence of acute large vascular distribution stroke. Mild central involutional change. Intracranial vascular calcifications. Cataract surgery. Scleral araceli. Visualized paranasal sinuses are clear. The surrounding soft tissues are normal. CT/CT head/brain wo con IMPRESSION: NO ACUTE INTRACRANIAL ABNORMALITY. Impression dictated by: Yordan Hernandez M.D. 03/21/2025 7:01 PM Dictation Location: [place] [address] Electronically authenticated by: [id number] Y Date: 03/21/2025 19:01
--- NOTE | 2025-03-21 17:55 | ED.GENADUL1 ---
HPI HPI - General Adult General Chief complaint: Extremity Problem, Nontraumatic Stated complaint: LOWER PAIN Time Seen by Provider: 03/21/25 17:34 Source: patient Mode of arrival: walk-in Limitations: no limitations History of Present Illness HPI narrative: Patient is a 69-year-old male presents to the ER at the request of his for an evaluation. He has a pertinent history of OCD and anxiety and has been manifesting certain behaviors lately that are concerning. The patient does not state that he is suicidal or homicidal. He is alert and oriented x 4 with a GCS of 15. Patient is very spiritual and feels he has not been walking in the way of a Voodoo. He has made some concerning comments at times to family friends in a group chat but not indicating self-harm. He has had some episodes that he is choking or cannot breathe that resolved. He currently has no complaints other than 1 out of 10 discomfort related to chronic numbness and tingling in his feet which is a ongoing issue with peripheral neuropathy. The states that he has had issues with bowel or bladder incontinence. Specifically he drinks a lot of water and at times will urinate himself when he is in the car or going for a walk along with loose bowel movements. The patient admits that he has the urge to have these but just cannot control it to get to the bathroom quick enough. He does have a pertinent history of lumbar spine surgery last year with similar symptoms but at that time had significant back pain which she does not have today. He denies any fevers or chills. He denies any radicular symptoms down his leg. Patient has had these bowel and bladder issues since his last surgery and his feels that they may be more related to his medications as he has not complained of any back pain symptoms and is more mobile now than he was previously. The patient did have a fall 2 months ago as well. There has been no recent medication changes other than they tried to take him off one during a vacation, but pt became restless at night. Patient sees a mental health counselor in [place] and has a psychiatrist in [facility]. His spouse is very supportive at the bedside. Onset (ago): month(s) Related Data Home Medications ?Medication ?Instructions ?Recorded ?Confirmed carvedilol 12.5 mg tablet 12.5 mg PO BID 07/23/23 03/21/25 insulin glargine U-300 conc 300 42 unit subcut QPM 07/23/23 03/21/25 unit/mL (3 mL) subcutaneous pen (Toujeo Max U-300 SoloStar) lorazepam 0.5 mg tablet 0.5 mg PO QAM PRN anxiety 07/23/23 03/21/25 melatonin 3 mg tablet 6 mg PO QPM 07/23/23 03/21/25 semaglutide 2 mg/dose (8 mg/3 mL) 2 mg subcut QWEEK 07/23/23 03/21/25 subcutaneous pen injector (Ozempic) atorvastatin 80 mg tablet 40 mg PO DAILY 06/25/24 03/21/25 clopidogrel 75 mg tablet 75 mg PO DAILY 06/25/24 03/21/25 empagliflozin 25 mg tablet 25 mg PO DAILY 06/25/24 03/21/25 (Jardiance) losartan 25 mg tablet 25 mg PO DAILY 06/25/24 03/21/25 spironolactone 25 mg tablet 12.5 mg PO DAILY 06/25/24 03/21/25 aspirin 81 mg tablet,delayed 81 mg PO DAILY 03/21/25 03/21/25 release (Adult Low Dose Aspirin) buspirone 10 mg tablet 20 mg PO BID 03/21/25 03/21/25 cholecalciferol (vitamin D3) 125 125 mcg PO DAILY 03/21/25 03/21/25 mcg (5,000 unit) tablet (Vitamin D3) divalproex 125 mg capsule,delayed 250 mg PO Q12H 03/21/25 03/21/25 release sprinkle duloxetine 60 mg capsule,delayed 60 mg PO QDAY 03/21/25 03/21/25 release insulin lispro 100 unit/mL 1 sliding scale dose subcut 03/21/25 03/21/25 subcutaneous pen (Admelog SoloStar USEASDIRECTD U-100 Insulin lispro) mirtazapine 15 mg tablet 15 mg PO QPM 03/21/25 03/21/25 nitroglycerin 0.3 mg sublingual 0.3 mg sublingual Q5M PRN chest 03/21/25 03/21/25 tablet (Nitrostat) pain omega-3 fatty acids 1,250 mg PO DAILY 03/21/25 03/21/25 potassium chloride 10 mEq 10 meq PO QDAY PRN low potassium 03/21/25 03/21/25 tablet,extended release risperidone 0.5 mg tablet 0.5 mg PO BID 03/21/25 03/21/25 (Risperdal) Allergies Allergy/AdvReac Type Severity Reaction Status Date / Time No Known Drug Allergies Allergy Verified 07/26/24 10:11 Opioid HPI Opioid Management Most Recent Opioid Data: Last Pain Scale 1 Today, 17:41 Ur Phencyclidine Scrn, (NEGATIVE) Negative Today, 18:30 Review of Systems ROS Constitutional Denies: fever or chills Eyes Denies: change in vision Gastrointestinal Reports: diarrhea (loose on occasion); Denies: abdominal pain, nausea or vomiting Genitourinary Reports: urinary frequency and urinary urgency; Denies: painful urination, genital pain, difficulty urinating or change in urine stream Musculoskeletal Reports: joint pain (shoulder- cancelled surgey for replacement with concern of mental health ); Denies: back pain, neck pain, extremity pain or extremity swelling Integumentary/Breast Denies: rash, itching, redness, skin pain or skin tenderness Neurological Reports: numbness in extremities (feet- chronic- sees Podiatry for ankle blisters and nail care); Denies: headache Psychiatric Reports: anxiety Hematologic/Lymphatic Denies: easy bruising PFSH PFSH Social History Little interest or pleasure in doing things: not at all Feeling down, depressed, or hopeless: not at all Exam Narrative Exam Narrative: Vital signs and nurses notes reviewed. The patient is not hypoxic. General: The patient appears well and in no apparent distress. Patient is resting comfortably on cart. Skin: Warm, dry, no pallor noted. The patient has no evidence of rash, petechiae, or purpura noted. feet with bandaids on superficial posterior ankle blisters , ( topical cream from Podiatry) Head: Normocephalic, atraumatic, no temporal arterial tenderness Neck: Supple, trachea mid-line, no tenderness, no lymphadenopathy. No meningeal signs. No nuchal rigidity. Eye: Pupils are equal, round and reactive to light, EOMI Ears, Nose, Mouth, and Throat: Oral mucosa is moist, TMs are clear bilaterally, no hemotympanum noted. Cardiovascular: Regular Rate and Rhythm Respiratory: Patient is in no distress, no accessory muscle use, lungs are clear to auscultation, no wheezing, rales or rhonchi Back: non-tender, no CVA tenderness Musculoskeletal: normal ROM, no tenderness extremities history of bilateral knee replacements. No swelling, normal strength 5/5. Normal pulses to radial 2+ bilaterally and 2+ at DP and PT bilaterally and symmetrically. GI: Normal bowel sounds, no tenderness to palpation, no masses appreciated. No rebound, guarding, or rigidity noted. 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 The patient has normal speech. The patient has normal coordination. . Normal motor and sensory observed. He denies bowel or bladder paresthesias. reflexes 1+ symmetric patella and achilles with neg clonus. Psychiatric: Cooperative, flat affect. Constitutional Vital Signs, click to edit/add: Last Vital Signs Temp 98.1 F 03/21/25 17:41 Pulse 81 03/21/25 17:41 Resp 03/21/25 17:41 BP 147/78 H 03/21/25 17:41 Pulse Ox 96 03/21/25 17:41 O2 Del Method Room Air 03/21/25 17:41 Course Vital Signs Vital signs: Vital Signs Temperature 98.1 F 03/21/25 17:41 Pulse Rate 81 03/21/25 17:41 Respiratory Rate 03/21/25 17:41 Blood Pressure 147/78 H 03/21/25 17:41 Pulse Oximetry 96 03/21/25 17:41 Oxygen Delivery Method Room Air 03/21/25 17:41 Temperature 98.1 F 03/21/25 17:41 Pulse Rate 81 03/21/25 17:41 Respiratory Rate 03/21/25 17:41 Blood Pressure 147/78 H 03/21/25 17:41 Pulse Oximetry 96 03/21/25 17:41 Oxygen Delivery Method Room Air 03/21/25 17:41 Medical Decision Making MDM Narrative Medical decision making narrative: Patient presents with spouse who has multiple concerns for acute on chronic conditions related possibly to his medications and mental health. He has no complaints himself regarding back pain or lumbar radicular symptoms. He notes chronic numbness and tingling in his feet which is always present with his history of diabetes and peripheral neuropathy. He ambulates without difficulty and admits that he put a shoulder surgery on hold with concerns of his mental health and wellbeing. We discussed his history of anxiety and OCD which feels has been worsening. Pt expressing more restorationist ideologies than normal and concern for metabolic cause is present given oral fluid intake and mild confusion.. pt himself has no concerns other than he admits he has some troubles with his mental health.. I am personally familiar with this patient from orthopedic office and note him to be more flat in affect and focused, but still answer questions appropriately. A mental health counsler will be paged to speak with pt. I did review the nurses triage note and clarified with the patient that he is only having tingling in his feet which is consistent with his history of peripheral neuropathy he denies any numbness or tingling in his lower legs concerning for a lumbar radicular pattern or spinal stenosis currently. He has no low back pain and sensation is intact bilaterally. His fecal urgency and urinary urgency have been ongoing issues for several months. And she notes that he will go weeks without any issues at all and then other times have accidents which the feels may be related to episodes of anxiety or stress Patient initially refused chest x-ray and laboratory draw. He then was agreeable to have his blood drawn but refused to have IV placed. He declined the chest x-ray stating that he does not have any chest symptoms. Patient demonstrating full range of motion of his right shoulder which has given him problems in the past with prior surgery, but he currently denies any pain here. [facility]i from [facility] was able to contact both patient and his they have no immediate safety concerns and plan to do a outpatient follow-up phone call on Sunday to continue addressing her concerns. Patient's labs were reviewed including urinalysis, no evidence of infection patient has history of diabetes and glucosuria but sodium is within normal limits despite his increased water intake we discussed the importance of following up with the mental health counselor. feels comfortable taking patient home and they may return to the ER at any point should any symptoms worsen or new symptoms develop. Patient has no complaints and is awaiting discharge patient in the room. The patient is to followup with primary care physician in next 2-3 days or to return to the emergency department should any of the signs or symptoms worsen or new symptoms develop. Patient had questions answered. The patient agrees with the following Diagnosis and Treatment plan and the patient will be discharged home. Lab Data Labs: Lab Results 03/21/25 Range/Units 18:30 WBC 7.6 (4.0-11.0) 10^3/uL RBC 4.49 L (4.70-6.10) 10^6/uL Hgb 14.2 (14.0-18.0) g/dL Hct 41.8 L (42.0-54.0) % MCV 93.1 (80.0-94.0) fL MCH 31.6 (25.9-34.0) pg MCHC 34.0 (29.9-35.2) g/dL RDW 15.1 H (11.0-15.0) % Plt Count 249 (150-450) 10^3/uL MPV 9.2 L (9.5-13.5) fL Neut % (Auto) 62.3 (43.0-75.0) % Lymph % (Auto) 23.3 (20.5-60.0) % [place] % (Auto) 11.4 (1.7-12.0) % Eos % (Auto) 2.4 (0.9-7.0) % Baso % (Auto) 0.5 (0.2-2.0) % Neut # (Auto) 4.8 (1.4-6.5) 10^3/uL Lymph # (Auto) 1.8 (1.2-3.8) 10^3/uL [place] # (Auto) 0.9 H (0.3-0.8) 10^3/uL Eos # (Auto) 0.2 (0.0-0.7) 10^3/uL Baso # (Auto) 0.0 (0.0-0.1) 10^3/uL Abs Immat Gran (auto) 0.01 (0.00-0.03) 10^3/uL Imm/Tot Granulo (auto) 0.1 (0.0-0.5) % Sodium 140 (136-145) mmol/L Potassium 4.0 (3.5-5.1) mmol/L Chloride 103 (98-107) mmol/L Carbon Dioxide 24.4 (21.0-32.0) mmol/L Anion Gap 16.6 BUN 23.0 H (7.0-18.0) mg/dL Creatinine 0.77 (0.70-1.30) mg/dL Est GFR ( Amer) >60 (>=60 mL/min/1.73m^2) Est GFR (Non-Af Amer) >60 (>=60 mL/min/1.73m^2) BUN/Creatinine Ratio 29.9 Glucose 121 H (74-106) mg/dL Calcium 8.8 (8.5-10.1) mg/dL Total Bilirubin 0.3 (0.2-1.0) mg/dL AST 15 (15-37) U/L ALT 38 (16-63) U/L Alkaline Phosphatase 58 (46-116) U/L Troponin I High Sens 13.9 (4.0-76.1) pg/mL Total Protein 7.4 (6.4-8.2) g/dL Albumin 3.7 (3.4-5.0) g/dL Globulin 3.7 g/dL Albumin/Globulin Ratio 1.0 TSH & Free T4 Interp 1.042 (0.358-3.740) uIU/mL Urine Color Lt. yellow (YELLOW) Urine Clarity Clear (CLEAR) Urine pH 6.0 (5.0-9.0) Ur Specific [place] 1.010 (1.005-1.025) Urine Protein Negative (NEG/TRACE) mg/dL Urine Glucose (UA) >=1000 A (NEGATIVE) mg/dL Urine Ketones Negative (NEGATIVE) mg/dL Urine Occult Blood Negative (NEGATIVE) Urine Nitrite Negative (NEGATIVE) Urine Bilirubin Negative (NEGATIVE) Urine Urobilinogen 0.2 (0.2-1.0) EU/dL Ur Leukocyte Esterase Negative (NEGATIVE) Salicylates <2.8 (<=19.9) mg/dL Urine Opiates Screen Negative (NEGATIVE) Ur Buprenorphine Scrn Negative (NEGATIVE) Ur Oxycodone Screen Negative (NEGATIVE) Urine Methadone Screen Negative (NEGATIVE) Acetaminophen <2.0 L (10.0-30.0) ug/mL Ur Barbiturates Screen Negative (NEGATIVE) U Tricyclic Antidepress Negative (NEGATIVE) Ur Phencyclidine Scrn Negative (NEGATIVE) Ur Amphetamines Screen Negative (NEGATIVE) U Methamphetamines Scrn Negative (NEGATIVE) U Benzodiazepines Scrn Positive A (NEGATIVE) Urine Cocaine Screen Negative (NEGATIVE) U Cannabinoids Screen Negative (NEGATIVE) Ethanol Quant <3 mg/dL Imaging Data CT scan - head: Radiologist's impression: ITS Impressions Head CT 03/21/25 17:54 IMPRESSION: NO ACUTE INTRACRANIAL ABNORMALITY. Impression dictated by: Yordan Hernandez M.D. 03/21/2025 7:01 PM Dictation Location: [place] [address] Electronically authenticated by: [id number] Y Date: 03/21/2025 19:01 ECG Data Attestation: I personally reviewed and interpreted this ECG as follows: Interpretation: EKG interpretation: Emergency Department physician interpretation, normal sinus rhythm 78 bpm, right bundle branch block, no ectopy, no ST segment elevation, normal axis. Discharge Plan Discharge Chief Complaint: Extremity Problem, Nontraumatic Clinical Impression: Anxiety, OCD (obsessive compulsive disorder), Mental health-related complaint Patient Disposition: Home, Self-Care Time of Disposition Decision: 19:47 Condition: Good Prescriptions / Home Meds: No Action buspirone 10 mg tablet 20 mg PO BID duloxetine 60 mg capsule,delayed release(DR/EC) 60 mg PO QDAY insulin lispro [Admelog SoloStar U-100 Insulin] 100 unit/mL insulin pen 1 sliding scale dose subcut USEASDIRECTD aspirin [Adult Low Dose Aspirin] 81 mg tablet,delayed release (DR/EC) 81 mg PO DAILY mirtazapine 15 mg tablet 15 mg PO QPM divalproex 125 mg capsule, delayed rel sprinkle 250 mg PO Q12H risperidone [Risperdal] 0.5 mg tablet 0.5 mg PO BID nitroglycerin [Nitrostat] 0.3 mg tablet, sublingual 0.3 mg sublingual Q5M PRN (Reason: chest pain) Rx Instructions: do not exceed 3 doses per episode potassium chloride 10 mEq tablet extended release 10 meq PO QDAY PRN (Reason: low potassium) cholecalciferol (vitamin D3) [Vitamin D3] 125 mcg (5,000 unit) tablet 125 mcg PO DAILY omega-3 fatty acids Capsule 1,250 mg PO DAILY lorazepam 0.5 mg tablet 0.5 mg PO QAM PRN (Reason: anxiety) insulin glargine U-300 conc [Toujeo Max U-300 SoloStar] 300 unit/mL (3 mL) insulin pen 42 unit SUBCUT QPM Ozempic 2 mg/dose (8 mg/3 mL) pen injector 2 mg subcut QWEEK carvedilol 12.5 mg tablet 12.5 mg PO BID melatonin 3 mg tablet 6 mg PO QPM atorvastatin 80 mg tablet 40 mg PO DAILY clopidogrel 75 mg tablet 75 mg PO DAILY losartan 25 mg tablet 25 mg PO DAILY spironolactone 25 mg tablet 12.5 mg PO DAILY Jardiance 25 mg tablet 25 mg PO DAILY Print Language: Tuvaluan Instructions: Obsessive Compulsive Disorder (DC), Anxiety (ED) Additional Instructions: [facility]- [phone] (Keep scheduled phone call follow up for Sunday) Referrals: Leeann Marshall NP [Primary Care Provider] - 1 week
[2025-03-21 18:25] VITALS: PULSE 78
[2025-03-21 18:55] LABS: Hematocrit 41.8 % (42.0-54.0); Hemoglobin 14.2 g/dL (14.0-18.0); Immature Granulocytes Abs Auto 0.01 10^3/uL (0.00-0.03); Immature Granulocytes Pct Auto 0.1 % (0.0-0.5); Lymphocytes Absolute Auto 1.8 10^3/uL (1.2-3.8); Mean Corpuscular HGB Conc 34.0 g/dL (29.9-35.2); Mean Corpuscular Hemoglobin 31.6 pg (25.9-34.0); Mean Corpuscular Volume 93.1 fL (80.0-94.0); Platelet Count 249 10^3/uL (150-450); Red Blood Count 4.49 10^6/uL (4.70-6.10); White Blood Count 7.6 10^3/uL (4.0-11.0)
--- NOTE | 2025-03-21 19:12 | PC.NURSE ---
Call received from Soni at [facility]. Soni relays that there are no safety concerns and that paient and agree to follow up phone call on Sunday to schedule out patient services. Information relayed to PA and nurse caring for patient.
[2025-03-21 19:22] LABS: Glucose Urine UA >=1000 mg/dL (NEGATIVE)
[2025-03-21 19:24] LABS: Alanine Aminotransferase 38 U/L (16-63); Albumin Globulin Ratio 1.0; Albumin Level 3.7 g/dL (3.4-5.0); Alkaline Phosphatase 58 U/L (46-116); Anion Gap 16.6; Aspartate Amino Transferase 15 U/L (15-37); Blood Urea Nitrogen 23.0 mg/dL (7.0-18.0); Calcium 8.8 mg/dL (8.5-10.1); Carbon Dioxide 24.4 mmol/L (21.0-32.0); Chloride 103 mmol/L (98-107); Estimated GFR (African America >60 (>=60 mL/min/1.73m^2); Estimated GFR (Non-African Ame >60 (>=60 mL/min/1.73m^2); Globulin 3.7 g/dL; Glucose 121 mg/dL (74-106); Potassium 4.0 mmol/L (3.5-5.1); Salicylate <2.8 mg/dL (<=19.9); Sodium 140 mmol/L (136-145); Total Protein 7.4 g/dL (6.4-8.2)
[2025-03-21 19:31] LABS: TSH W/ REFLEX FT4 1.042 uIU/mL (0.358-3.740)
[2025-03-21 19:33] LABS: Cannabinoid Screen Urine NEGATIVE (NEGATIVE); Methamphetamines Screen Urine NEGATIVE (NEGATIVE); Tricyclic Antidepressant Urine NEGATIVE (NEGATIVE)
[2025-03-21 19:39] LABS: Acetaminophen <2.0 ug/mL (10.0-30.0)
[2025-03-21 19:57] VITALS: BP 163/96; PULSE 73; O2SAT 97
[2025-03-21 19:59] LABS: Cast Seen? NONE SEEN #/LPF (NONE SEEN); Crystals Seen? None Seen #/HPF (None Seen); Urine Culture Indicated NO
== END 2025-03-21 20:02 | disposition home or self-care (01) ==
PROVIDERS: Personal Emergency Response Attendant; Emergency Provider Emergency Medicine; PCP Nurse Practitioner
DX: F41.9 Anxiety disorder, unspecified (principal); F42.9 Obsessive-compulsive disorder, unspecified; E11.42 Type 2 diabetes mellitus with diabetic polyneuropathy; Z79.4 Long term (current) use of insulin; Z79.85 Long-term (current) use of injectable non-insulin antidiabetic drugs; Z79.899 Other long term (current) drug therapy
CPT/HCPCS: 36415; 70450; 80053; 80179; 80307; 80320; 80329; 81001; 84443; 84484; 85025; 93005; 99285

== ENCOUNTER 2025-07-03 11:38 | Emergency (ER) | payer MEDICARE, SELFPAY ==
--- OUTSIDE RECORDS SUMMARY | 2025-06-19 10:20 | XMS_ITS | Encounter Summary ---
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 Burning of the tongue. Encounter Details DateTypeDepartmentCare Team (Latest Contact Info)Lkqrbnhkbei38/17/2025 10:20 AM EDTOffice Visit [facility]/Kayedn Morse MD [address] [place] [phone] Leeann Marshall APRN-CNP [address] [facility] [address] [place], [place] [id number] Type 2 diabetes mellitus with diabetic peripheral angiopathy without gangrene, with long-term current use of insulin ([facility]) (Primary Dx); Burning tongue; Primary hypertension; Obesity, morbid ([facility]); Mixed hyperlipidemia; CAD, multiple vessel; Obsessive-compulsive disorder, unspecified type Social History Tobacco UseTypesPacks/DayYears UsedDateSmoking Tobacco: NeverSmokeless Tobacco: NeverAlcohol UseStandard Drinks/WeekCommentsNot Currently0 (1 standard drink = 0.6 oz pure alcohol)Social Connection and Isolation PanelAnswerDate RecordedIn a typical week, how many times do you talk on the phone with family, friends, or neighbors?More than three times a week04/17/2023How often do you get together with friends or relatives?More than three times a week04/17/2023How often do you attend latter-day or islam services?More than 4 times per year04/17/2023o you belong to any clubs or organizations such as latter-day groups, unions, fraternal or athletic groups, or school groups?Yes04/17/2023How often do you attend meetings of the clubs or organizations you belong to?Never04/17/2023re you , , , , never , or living with a partner? 04/17/2023UDIT-CAnswerDate RecordedQ1: How often do you have a drink containing alcohol?Never09/20/2023Q2: How many drinks containing alcohol do you have on a typical day when you are drinking?Patient does not drink09/20/2023Q3: How often do you have six or more drinks on one occasion?Never09/20/2023Overall Financial Resource Strain (CARDIA)AnswerDate RecordedHow hard is it for you to pay for the very basics like food, housing, medical care, and heating?Not very hard 04/17/2023HQ-2AnswerDate RecordedTotal Yjyry9853/15/2025[facility] [place] [facility] - Occupational Stress QuestionnaireAnswerDate RecordedDo you feel stress - tense, restless, nervous, or anxious, or unable to sleep at night because yourmind is troubled all the time - these days?Rather much04/17/2023 Exercise Vital SignAnswerDate RecordedOn average, how many days per week do you engage in moderate to strenuous exercise (like a brisk walk)?4 days04/17/2023On average, how many minutes do you engage in exercise at this level?60 min 04/17/2023RAPARE - TransportationAnswerDate RecordedIn the past 12 months, has lack of transportation kept you from medical appointments or from getting medications?No04/17/2023In the past 12 months, has lack of transportation kept you from meetings, work, or from getting things needed for daily living?No 04/17/2023Housing InstabilityAnswerDate RecordedAre you worried or concerned that in the next two months you may not have stable housing that you own, rent or stay in as a part of a household?No04/17/2023hildcareAnswerDate RecordedDo problems getting child adolescent care make it difficult for you to work or study?No 04/17/2023EmploymentAnswerDate RecordedDo you need help finding a local career center and/or a training program?No04/17/2023Hunger ScreeningAnswerDate Recorded Within the past 12 months we worried whether our food would run out before we got money to buy more.Never True03/24/2025Within the past 12 months the food we bought just didn't last and we didn't have money to get more.Never True 03/24/2025Purpose - LifeAnswerDate RecordedI have a purpose and direction in my life.Somewhat Agree04/17/2023Sex and Gender InformationValueDate RecordedSex Assigned at BirthNot on fileLegal SvjQovq6204/08/2015 11:45 AM EDTGender Identity Not on fileSexual OrientationNot on filedocumented as of this encounter Last Filed Vital Signs Vital SignReadingTime TakenCommentsBlood Rntqxywv115/6810 10:20 AM EDT Ranss673606/19/2025 10:20 AM YATLrrgchrvkwa88.6 ??C (97.9 ??F)06/19/2025 10:20 AM EDTRespiratory Rate--Oxygen Fsbsxrxpve43%06/19/2025 10:20 AM EDTInhaled Oxygen Concentration--Tegfqj359.1 kg (267 lb)06/19/2025 10:20 AM EZSHqqfir459.8 cm (5' 10 )06/19/2025 10:20 AM EDTBody Mass Index38.311 10:20 AM EDTdocumented in this encounter Progress Notes * Leeann Marshall APRN-QI - 06/19/2025 10:20 AM EDT Subjective Patient ID: Tom Dye is a 69 y.o. male. Chief Complaint Chief Complaint Patient presents with Follow-up Leg pain. Burning of the tongue. HPI HPI Here with Saw [facility] neurology and psychiatry. Weaning Risperdal. Anxiety is a little worsening, not awful . Cymbalta will be incrased after risperdal wean. Had MRI brain. Follows back up with psych in August. Counselor discontinued sessions with Tom, was not making progress until OCD under control. Currently looking for therapist, has recommendations from [facility]. Leg paresthesias. Saw neurosurgery, notes reviewed. To see urology re: urinary issues Declines flu vaccine DM - sugars have been high but not consistent with ozempic. Has large appetite. Sees endocrinology C/o chronic tongue burning sensation. Past Medical History Past Medical History: Diagnosis Date [place] 10/15/2023 Angina pectoris Anxiety Arthritis osteoarthritis Autonomic neuropathy due to type 2 diabetes mellitus [place] 06/01/2022 Back pain CAD, multiple vessel 08/30/2023 Cardiomegaly Cataract CHF (congestive heart failure) ([facility] Chronic diastolic CHF (congestive heart failure) ([facility] 02/05/2023 Constipation 10/15/2023 Coronary arteriosclerosis 06/01/2022 Coronary artery disease 2009 CABG x5 COVID-19 Dental disease crowns, missing teeth Depression Deviated septum Diabetes mellitus type 2, controlled ([facility] Difficult intravenous access GARCIA (dyspnea on exertion) Esophageal stricture Fatigue 06/28/2011 Fractures Gallstones 04/03/2024 GERD (gastroesophageal reflux disease) H/O esophagogastroduodenoscopy dilatation Heart attack ([facility] 10/06/2023 4 stents Hiatal hernia Hyperlipidemia Hypertension Hyponatremia Incontinence of bowel Incontinence of urine 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 Lower extremity weakness 09/20/2023 MCI (mild cognitive impairment) 02/25/2021 Memory loss Mild cognitive impairment Mixed anxiety and depressive disorder 09/07/2017 Mixed hyperlipidemia 06/28/2011 Last Assessment & Plan: Assessment: no meds currently ,stable Moderate episode of recurrent major depressive disorder ([facility] 12/25/2022 MRSA (methicillin resistant Staphylococcus aureus) 1992 Obesity (BMI 30-39.9) 08/30/2023 BMI 36.54 Obsessive-compulsive disorder 11/07/2018 Obstructive sleep apnea syndrome 06/01/2022 Peripheral neuropathy PONV (postoperative nausea and vomiting) Primary hypertension [...] elevation myocardial infarction (STEMI) of inferior wall ([facility] 10/15/2023 Type 2 diabetes mellitus with diabetic peripheral angiopathy without gangrene, with long-term current use of insulin ([facility] 10/13/2019 Urinary retention Visual impairment glasses retinal detatchment Vitamin D deficiency Vitreous hemorrhage ([facility] Vocal cord granuloma Past Surgical History Past Surgical History: Procedure Laterality Date BACK SURGERY Left Circumferential 09/21/2023 fusion CARDIAC CATHETERIZATION x4 CATARACT EXTRACTION, BILATERAL Bilateral COLONOSCOPY 2012 COLONOSCOPY DIAGNOSTIC / SCREENING N/A 04/09/2025 Performed by Tim Ibrahim MD at [facility] CORONARY ARTERY BYPASS GRAFT x5 ESOPHAGOGASTRODUODENOSCOPY dilatation EYE SURGERY Bilateral x3 LAMINECTOMY LUMBAR SINGLE LEVEL / L4/5 N/A 09/21/2023 Performed by Mynor Steen MD at [facility] POSTERIOR LAMINECTOMY FUSION LUMBAR SINGLE LEVEL / L4/5 N/A 09/21/2023 Performed by Mynor Steen MD at [facility] REPLACEMENT TOTAL KNEE Bilateral REVISION OF SCLERAL BUCKLE Bilateral ROTATOR CUFF REPAIR Left SEPTOPLASTY Family History Family History Problem Relation [...] Never Vaping Use Vaping status: Never Used Substance and Sexual Activity Alcohol use: Not Currently Drug use: No Sexual activity: Yes Partners: Female Other Topics Concern Not on file Social History Narrative Not on file Social Drivers of Health Financial Resource Strain: Low Risk (04/17/2023) Overall Financial Resource Strain (CARDIA) Difficulty of Paying Living Expenses: Not very hard Food Insecurity: No Food Insecurity (03/24/2025) Hunger Screening Food Insecurity - Worry: Never True Food Insecurity - Inability: Never True Transportation Needs: No Transportation Needs (04/17/2023) PRAPARE - Transportation Lack of Transportation (Medical): No Lack of Transportation (Non-Medical): No Physical Activity: Sufficiently Active (04/17/2023) Exercise Vital Sign Days of Exercise per Week: 4 days Minutes of Exercise per Session: 60 min Stress: Stress Concern Present (04/17/2023) [place] [facility] [employer] - Occupational Stress Questionnaire Feeling of Stress : Rather much Social Connections: Socially Integrated (04/17/2023) Social Connection and Isolation Panel Frequency of Communication with Friends and Family: More than three times a week Frequency of Social Gatherings with Friends and Family: More than three times a week Attends Worship Services: More than 4 times per year [...] 2 tablets (20 mg total) before bedtime. (Patient taking differently: Take 1 tablet (10 mg total) by mouth in the morning.) carvediloL (COREG) 12.5 mg tablet Take 1 tablet (12.5 mg total) by mouth in the morning and 1 tablet (12.5 mg total) before bedtime. 180 tablet 1 cholecalciferol, vitamin D3, 5,000 units tablet TAKE 1 TABLET (5,000 UNITS TOTAL) BY MOUTH IN THE MORNING. 90 tablet 3 clopidogreL (PLAVIX) 75 mg tablet Take 1 tablet (75 mg total) by mouth nightly. cyanocobalamin 1000 MCG tablet Take 1 tablet (1,000 mcg total) by mouth in the morning. divalproex sprinkle (DEPAKOTE SPRINKLE) 125 mg capsule Take 2 capsules (250 mg total) by mouth in the morning and 2 capsules (250 mg total) before bedtime. DULoxetine (CYMBALTA) 60 mg capsule Take 1 capsule (60 mg total) by mouth in the morning. JARDIANCE 25 mg tablet tablet TAKE 1 TABLET (25 MG TOTAL) BY MOUTH IN THE MORNING 90 tablet 3 LORazepam (ATIVAN) 0.5 mg tablet Take 1 tablet (0.5 mg total) by mouth every 6 (six) hours as needed. losartan (COZAAR) 25 mg tablet Take 1 tablet (25 mg total) by mouth in the morning. melatonin (CIRCADIN) tablet Take 2 tablets (6 mg total) by mouth nightly. 1-2 tabs as needed nightly mirtazapine (REMERON) 15 mg tablet Take 1 tablet (15 mg total) by mouth once daily at bedtime. nitroglycerin (NITROSTAT) 0.4 MG SL tablet omega 0-sdt-psk-fish oil (Fish OiL) 300-1,000 mg capsule Take by mouth Daily at 0300. risperiDONE (RisperDAL) 0.5 mg tablet Take 1 tablet (0.5 mg total) by mouth in the morning and 1 tablet (0.5 mg total) before bedtime. (Patient taking differently: Take 1 tablet (0.5 mg total) by mouth in the morning and 1 tablet (0.5 mg total) before bedtime. Pt is currently tapering off. Will be done 06/27/25.) semaglutide (OZEMPIC) 2 mg/dose (8 mg/3 mL) pen injector Inject 2 mg under the skin every 7 days. 9mL 3 spironolactone (ALDACTONE) 25 mg tablet Take 0.5 tablets (12.5 mg total) by mouth in the morning. TOUJEO MAX U-300 SOLOSTAR 300 unit/mL (3 mL) insulin pen Inject 42 Units under the skin in the morning. Up to 75 units daily. bisacodyL (DULCOLAX) 5 mg EC tablet Take 1 tablet (5 mg total) by mouth daily as needed for constipation. (Patient not taking: Reported on 06/19/2025) 4 tablet 0 DOCOSAHEXAENOIC ACID ORAL Take 1 capsule by mouth. (Patient not taking: Reported on 06/19/2025) gentamicin (GARAMYCIN) 0.1 % ointment Apply 1 Application topically. (Patient not taking: Reported on 06/19/2025) polyethylene glycol (GoLYTELY) 236-22.74-6.74 -5.86 gram solution Please follow office colonoscopy instructions. (Patient not taking: Reported on 06/19/2025) 4000 mL 0 potassium chloride (KLOR-CON SPRINKLE) 10 MEQ CR capsule Take 1 capsule (10 mEq total) by mouth as needed. Per Dr. Watts (Patient not taking: Reported on 06/19/2025) No current facility-administered medications for this visit. Review of Systems Review of Systems Neurological: Positive for numbness. Psychiatric/Behavioral: Positive for agitation. The patient is nervous/anxious. Objective Vitals BP 110/68 (BP Site: Left Arm, BP Postition: Sitting) Pulse 76 Temp 36.6 ??C (97.9 ??F) Ht 177.8 cm (5' 10 ) Wt 121.1 kg (267 lb) SpO2 97% BMI 38.31 kg/m?? Physical Exam Physical Exam Nursing note reviewed. [...] to person, place, and time. Gait: Gait abnormal. Psychiatric: Mood and Affect: Mood is anxious. Speech: Speech normal. Recent Pertinent Labs and Radiology Assessment/Plan 1. Type 2 diabetes mellitus with diabetic peripheral angiopathy without gangrene, with long-term current use of insulin ([facility]) 2. Burning tongue - Folate; Future 3. Primary hypertension 4. Obesity, morbid ([facility]) 5. Mixed hyperlipidemia 6. CAD, multiple vessel 7. Obsessive-compulsive disorder, unspecified type Current regimen effective, follows with several specialists Return in about 6 months (around 12/18/2025) for Recheck. There are no discontinued medications. There are no Patient Instructions on file for this visit. TERRY Monteiro 06/19/25 1248 documented in this encounter Plan of Treatment DateTypeDepartmentCare Team (Latest Contact Info)Rsxhqpgdqzf15/19/2025 11:00 AM ESTOffice Visit [facility] [address] [facility] [address] [place] [phone] Alea Mckenzie MD [address] [facility] [place] [address] 12/14/2025 3:15 PM EDTOffice Visit [facility] [address] [place] [address] [place] [phone] Nathan Blankenship MD [address] [place] [address] 12/21/2025 10:00 AM EDTOffice Visit [facility]/Kayden Morse MD [address] [facility] [address] [place] [phone] Leeann Marshall APRN-CNP [address] [facility] [address] [place], [place] [phone] documented as of this encounter Goals GoalPatient Goal TypeAssociated ProblemsRecent ProgressPatient-Stated?Author Return home Adeline Albarran, RN Note: Evaluation of progress towards goal: Plan to return home with spouse. documented as of this encounter Results * Folate (06/29/2025 1:24 PM EDT)ComponentValueRef RangeTest MethodAnalysis Time Performed AtPathologist SignatureFOLIC ACID19.3>5.8 ng/mL06/29/2025 7:27 PM EDSELECT MEDICAL [facility] LABORATORYSpecimen (Source)Anatomical Location / LateralityCollection Method / VolumeCollection TimeReceived TimeBloodVenous blood / UnknownVenipuncture / Ntmeiro9806/29/2025 1:24 PM EDT1 1:24 PM EDT Narrative Authorizing ProviderResult TypeResult StatusLeeann Marshall APRN-CNPCRISTOFER BLOOD ORDERABLESFinal ResultPerforming OrganizationAddressCity/State/ZIP CodePhone Number [facility] [address] [place] [address], documented in this encounter Visit Diagnoses Diagnosis Type 2 diabetes mellitus with diabetic peripheral angiopathy without gangrene, with long-term current use of insulin ([facility])- Primary Burning tongue Glossodynia Primary hypertension Unspecified essential hypertension Obesity, morbid [place] Morbid obesity Mixed hyperlipidemia CAD, multiple vessel Obsessive-compulsive disorder, unspecified type documented in this encounter Additional Health Concerns AssessmentNoted TimePHQ-9 Depression Total Score: 13003/17/2025 10:00 AM EDT documented as of this encounter Care Teams Team MemberRelationshipSpecialtyStart DateEnd Date Leeann Marshall, SONIDO-PSYCHIATRY INSTRUCTOR [address] [facility] [address] [place] [address] PCP - GeneralInternal Medicine11/15/23documented as of this encounter
[2025-07-03 11:44] VITALS: BP 174/93; PULSE 79; TEMP 36.6; O2SAT 98; BMI 37.0
--- NOTE | 2025-07-03 11:56 | CT_ITS ---
[address] [address] Patient Name: JAE KHAN MRN: [id number] date: 1955 Sex: M Assigned Patient Location: ER Current Patient Location: ED.MAIN Accession/Order Number: [id number] Exam Date: 07/03/2025 12:16 Report Date: 07/03/2025 13:07 At the request of: MICHELLE MAY MD Procedure: CT abdomen pelvis wo con CT Abdomen and Pelvis withoutcontrast TECHNIQUE: Axial imaging with 2-D reconstruction. The CT exam was performed using one or more the following dose reduction techniques: Automated exposure control, adjustment of the MA and/or Kv according to patient size, or use of the iterative reconstruction technique. COMPARISON: None History: Bilateral lower abdominal pain. Assessment for small bowel obstruction. Unable to urinate LIMITATIONS: None LOWER THORAX Unremarkable LIVER: Unchanged hepatic cyst GALLBLADDER: Cholecystectomy clips identified. BILE DUCTS: No dilatation SPLEEN: Unremarkable PANCREAS: Unremarkable ADRENAL GLANDS: Unremarkable KIDNEYS:Mild perinephric stranding. No nephrolithiasis or obstructive uropathy. AORTA: No abdominal aortic aneurysm identified. Large volume of atherosclerosis of aorta and branches. RETROPERITONEUM: No significant retroperitoneal abnormalities identified. MESENTERY:Unremarkable STOMACH:Unremarkable SMALL BOWEL: The small bowel loops are nondistended. APPENDIX: The appendix is normal. COLON: Large burden of stool throughout the colon. Large amount stool in the rectum. May represent impaction URINARY BLADDER: Bernardo catheter and nondistended urinary bladder. REPRODUCTIVE SYSTEM: Reproductive structures are unremarkable. PNEUMOPERITONEUM: None PERITONEAL FLUID:None BONY STRUCTURES: L4-L5 posterior fusion hardware without complication. Degenerative change. ABDOMINAL WALL: Unremarkable CT/CT abdomen pelvis wo con IMPRESSION: Bernardo catheter and nondistended urinary bladder. No small bowel obstruction. Constipation. Possible fecal impaction. No focal inflammatory changes. Impression dictated by: Tony Hand M.D. 07/03/2025 1:07 PM Dictation Location: [place] [address] Electronically authenticated by: [id number] Y Date: 07/03/2025 13:07
[2025-07-03 12:14] LABS: Hematocrit 44.2 % (42.0-54.0); Hemoglobin 15.2 g/dL (14.0-18.0); Immature Granulocytes Abs Auto 0.05 10^3/uL (0.00-0.03); Immature Granulocytes Pct Auto 0.3 % (0.0-0.5); Lymphocytes Absolute Auto 1.4 10^3/uL (1.2-3.8); Mean Corpuscular HGB Conc 34.4 g/dL (29.9-35.2); Mean Corpuscular Hemoglobin 31.7 pg (25.9-34.0); Mean Corpuscular Volume 92.3 fL (80.0-94.0); Platelet Count 263 10^3/uL (150-450); Red Blood Count 4.79 10^6/uL (4.70-6.10); White Blood Count 14.7 10^3/uL (4.0-11.0)
[2025-07-03 12:30] VITALS: BP 109/71; PULSE 75; O2SAT 92
[2025-07-03 12:39] LABS: Glucose Urine UA >=1000 mg/dL (NEGATIVE)
--- OUTSIDE RECORDS SUMMARY | 2025-07-03 12:46 | XMS_ITS | Clinical Summary ---
Author Organization [employer] [facility] tem Address [facility] [id number] [address] [place] [address] Care Team Providers Care Transaction Advisory Services Manager Name Role Phone Leeann Marshall TILE FINISHER-CERTIFIED SHORTHAND REPORTER Primary Care Provider [phone] Allergies No known active allergies Medications MedicationSigDispense QuantityRefillsLast FilledStart DateEnd DateStatus melatonin (CIRCADIN) tablet Take 2 tablets (6 mg total) by mouth nightly. 1-2 tabs as needed nightly 12/07/2022ctive losartan (COZAAR) 25 mg tablet Take 1 tablet (25 mg total) by mouth in the morning.09/26/2023ctive acetaminophen (TYLENOL EXTRA STRENGTH) 500 mg tablet 10/06/2023ctive aspirin 81 mg 10/08/2023ctive nitroglycerin (NITROSTAT) 0.4 MG SL tablet 10/06/2023ctive spironolactone (ALDACTONE) 25 mg tablet Take 0.5 tablets (12.5 mg total) by mouth in the morning.10/08/2023ctive omega 1-tgl-vei-fish oil (Fish OiL) 300-1,000 mg capsule Take by mouth Daily at 0300.Active carvediloL (COREG) 12.5 mg tablet Indications:Chronic diastolic CHF (congestive heart failure) ([facility])Take 1 tablet (12.5 mg total) by mouth in the morning and 1 tablet (12.5 mg total) before bedtime. 180 tablet ctive busPIRone (BUSPAR) 10 mg tablet Take 2 tablets (20 mg total) by mouth in the morning and 2 tablets (20 mg total) before bedtime.Active mirtazapine (REMERON) 15 mg tablet Take 1 tablet (15 mg total) by mouth once daily at bedtime.4Active potassium chloride (KLOR-CON SPRINKLE) 10 MEQ CR capsule Take 1 capsule (10 mEq total) by mouth as needed. Per Dr. Gandara atorvastatin (LIPITOR) 40 mg tablet Take 1 tablet (40 mg total) by mouth in the morning. 90 tablet 5Active DULoxetine (CYMBALTA) 60 mg capsule Take 1 capsule (60 mg total) by mouth in the morning.5Active ADMELOG SOLOSTAR U-100 INSULIN 100 unit/mL insulin pen Indications:Type 2 diabetes mellitus with diabetic peripheral angiopathy without gangrene, with long-term current use of insulin [place]Per scale up to 25 units 3 times daily with meals, max dose of 75 units daily 75 mL 5Active semaglutide (OZEMPIC) 2 mg/dose (8 mg/3 mL) pen injector Indications:Type 2 diabetes mellitus with diabetic peripheral angiopathy without gangrene, with long-term current use of insulin [place]Inject 2 mg under the skin every 7 days. 9 mL 5Active cholecalciferol, vitamin D3, 5,000 units tablet TAKE 1 TABLET (5,000 UNITS TOTAL) BY MOUTH IN THE MORNING. 90 tablet 5Active clopidogreL (PLAVIX) 75 mg tablet Take 1 tablet (75 mg total) by mouth nightly.5Active risperiDONE (RisperDAL) 0.5 mg tablet Take 1 tablet (0.5 mg total) by mouth in the morning and 1 tablet (0.5 mg total) before bedtime.5Active LORazepam (ATIVAN) 0.5 mg tablet Take 1 tablet (0.5 mg total) by mouth every 6 (six) hours as needed.Active TOUJEO MAX U-300 SOLOSTAR 300 unit/mL (3 mL) insulin pen Indications:Type 2 diabetes mellitus with diabetic peripheral angiopathy without gangrene, with long-term current use of insulin [place]Inject 42 Units under the skin in the morning. Up to 75 units daily.5Active divalproex sprinkle (DEPAKOTE SPRINKLE) 125 mg capsule Take 2 capsules (250 mg total) by mouth in the morning and 2 capsules (250 mg total) before bedtime.5Active polyethylene glycol (GoLYTELY) 236-22.74-6.74 -5.86 gram solution Please follow office colonoscopy instructions. 4000 mL 03/23/2025tive Additional Information Patient not taking.Reported on 06/19/2025 bisacodyL (DULCOLAX) 5 mg EC tablet Take 1 tablet (5 mg total) by mouth daily as needed for constipation. 4 tablet 03/23/2025tive Additional Information Patient not taking.Reported on 06/19/2025 gentamicin (GARAMYCIN) 0.1 % ointment Apply 1 Application topically.03/18/2025tive JARDIANCE 25 mg tablet tablet Indications:Type 2 diabetes mellitus with diabetic peripheral angiopathy without gangrene, with long-term current use of insulin [place]TAKE 1 TABLET (25 MG TOTAL) BY MOUTH IN THE MORNING 90 tablet 5Active cyanocobalamin 1000 MCG tablet Take 1 tablet (1,000 mcg total) by mouth in the morning. Active DOCOSAHEXAENOIC ACID ORAL Take 1 capsule by mouth.Active Active Problems ProblemNoted DateDiagnosed DateObesity, yssylr6403/17/20253740Wqfhgkpfos73/01/2024 Urinary bioxshzbo42/05/2024 Overview (12/10/2024): ====12/10/24==== Doing well off tamsulosin. [...] We will see him back in 1 yearwith a PSA and PVR Acute MI10/15/2023ST elevation myocardial infarction (STEMI) of inferior wall 8812Krqcymsioece08/12/2024Spinal stenosis at L4-L5 level4Back pain09/20/2023Lower extremity /18/2024iabetes lmcmjogn30/28/2023 Esophageal bxhntu1108/30/2023AD, multiple biphlw8708/30/2023Hyperlipidemia 08/30/2023Obesity (BMI 30-39.9)08/30/20233380Mxuonqrrlp25/28/2023Hypertension 08/30/2023hronic diastolic CHF (congestive heart failure)02/05/2023Moderate episode of recurrent major depressive jltfcxit05/24/2023omplaint of paresthesia 11/16/2022Obstructive sleep apnea hkhaqocc02/29/2022Retinal wnyjqufujc61/29/2022 Primary osteoarthritis of right knee06/01/2022 Overview (06/01/2022): Last Assessment & Plan: Assessment: will have surgery Autonomic neuropathy due to type 2 diabetes iyrxlpje77/29/2022Coronary mozxqhssjyuconms09/29/2022MCI (mild cognitive impairment)02/25/2021Obesity, Class II, BMI 35-39.908/07/2020S/P total knee arthroplasty, right04/12/2020Type 2 diabetes mellitus with diabetic peripheral angiopathy without gangrene, with long-term current use of evpcvvl3910/13/2019Obsessive-compulsive disorder 11/07/2018Cataract, nuclear sclerotic senile, right08/14/2018 Overview (06/01/2022): Added automatically from request for surgery [id number] Mixed anxiety and depressive /05/2018Vocal cord /07/2013 Overview (06/01/2022): Last Assessment & Plan: Assessment: had in 2012, no further episodes Vitamin D nrzcsduvrt88/26/2011Primary ueopczcedqew82/26/2011 Overview (06/01/2022): Last Assessment & Plan: Assessment: on med,moniotred per PCP BP 143/74 pulse 64 Mixed cdgnapfuiwuntk97/26/2011 Overview (06/01/2022): Last Assessment & Plan: Assessment: no meds currently ,stable Hqktspg59seudophakia05/05/2011 Resolved Problems ProblemNoted DateDiagnosed DateResolved DateCauda equina zfgtatbptch05/18/2024 09/26/2023bsolute txjmfa52/12/2022Rotator cuff strain, right, initial zdisuxrtg71/ Encounters DateTypeDepartmentCare NwsfIirwvrxivru08/27/1086Suhore35/17/2025 10:20 AM EDT Office Visit [facility]/Kayden Morse MD [address] [place] [phone] Leeann Marshall, TILE FINISHER-CERTIFIED SHORTHAND REPORTER Type 2 diabetes mellitus with diabetic peripheral angiopathy without gangrene, with long-term current use of insulin ([facility]) (Primary Dx); Burning tongue; Primary hypertension; Obesity, morbid ([facility]); Mixed hyperlipidemia; CAD, multiple vessel; Obsessive-compulsive disorder, unspecified type06/19/2025Telephone [facility]/Kayden Morse MD [address] [place] [address] Lina Alexandre RN 06/19/2025Telephone [facility]/Kayden Morse MD [address] [place] [address] Lina Alexandre RN 06/19/20253430Uagtnr13/09/2025 11:10 AM EDTOffice Visit [facility] [address] [place] [phone] Mynor Steen MD Other urinary incontinence (Primary Dx); Cauda equina compression [place]06/11/20259798Gcnflq55/06/2025Orders Only [facility]/Kayden Morse MD [address] [place] [address] External, Scanning Provider 05/15/20250719Ganjpg18/09/2025Orders Only [facility], A Department of [facility] [address] [phone] Alea Mckenzie MD 05/12/2025Telephone [facility] Adult Endocrinology, A Department of [facility] [address] [phone] Alea Mckenzie MD 05/05/2025Telephone [facility] [address] [place] [phone] Dorothy Sawyer RN Gigmdwi6804/21/2025Results Follow-Up [facility] [address] [place] [phone] Shanice Kline, TILE FINISHER-CERTIFIED SHORTHAND REPORTER MR lumbar spine without mjjasreg23/14/2025 12:33 PM EDT - 04/16/2025 11:59 PM EDTHospital Encounter [facility] - MRI Imaging [address] [place] [phone] Numbness in both legs; Status post lumbar spinal fusion Discharge Disposition: Home04/16/20257987Mpudxo54/09/2025Refill [facility] [address] [phone] Alea Mckenzie MD Type 2 diabetes mellitus with diabetic peripheral angiopathy without gangrene, with long-term current use of insulin [place]04/09/2025 1:02 PM EDTAnesthesia Event [facility] -Surgery [address] [place] [address] Ermias Blackwell MD Wisuri, Todd, APRN-SANDRA 04/09/2025 12:45 PM EDT - 04/09/2025 1:15 PM EDTSurgery [facility] -Surgery [address] [place] [address] [place] [address] Tim Nunez MD COLONOSCOPY DIAGNOSTIC / GDXOAFBNC22/07/2025 10:55 AM EDT - 04/09/2025 2:08 PM EDTHospital Encounter [facility] -Surgery [address] [place] [address] [place] [address] Tim Nunez MD Discharge Disposition: Home04/09/20255888Jklucr77/04/2025 1:15 PM EDT - 04/06/2025 11:59 PM EDTHospital Encounter [facility] - Radiology [address] [place] [address] Numbness in both legs; Status post lumbar spinal fusion Discharge Disposition: Home04/06/2025Telephone [facility] Adult Endocrinology, A Department of [facility] [address] [phone] Alea Mckenzie MD 04/06/2025Travelfrom Last 3 Months Immunizations ImmunizationAdministration DatesNext DuePneumococcal Roudorjzikskmu12/12/2012 Tdap12/31/2024 Family History Medical HistoryRelationNameCommentsHeart diseaseFatherHyperlipidemiaFather HypertensionFatherDiabetesMotherHypertensionMotherCirrhosisNeg HxColon cancerNeg HxInflammatory bowel diseaseNeg HxRelationNameStatusCommentsFatherDeceasedMother Social History Tobacco UseTypesPacks/DayYears UsedDateSmoking Tobacco: NeverSmokeless Tobacco: Never Tobacco Cessation:Counseling Given: Not Answered Alcohol UseStandard Drinks/WeekCommentsNot Currently0 (1 standard drink = 0.6 oz pure alcohol)Social Connection and Isolation PanelAnswerDate RecordedIn a typical week, how many times do you talk on the phone with family, friends, or neighbors?More than three times a week04/17/2023How often do you get together with friends or relatives?More than three times a week04/17/2023How often do you attend gnosticism or judaism services?More than 4 times per year04/17/2023o you belong to any clubs or organizations such as gnosticism groups, unions, fraternal or athletic groups, or [...] care, and heating?Not very hard 04/17/2023HQ-2AnswerDate RecordedTotal Ncdwk9217/15/2025Finprimary [facility] [employer] of Occupational Health - Occupational Stress QuestionnaireAnswerDate [...] of a household?No04/17/2023hildcareAnswerDate RecordedDo problems getting child welfare caseworker make it difficult for you to work [...] InformationValueDate RecordedSex Assigned at BirthNot on fileLegal NrfFbga0204/08/2015 11:45 AM EDTGender Identity Not on fileSexual OrientationNot on file Last Filed Vital Signs Vital SignReadingTime TakenCommentsBlood Zyecgseh135/6806/19/2025 10:20 AM EDT Wxseg600106/19/2025 10:20 AM TSNTtsljwldfeo86.6 ??C (97.9 ??F)06/19/2025 10:20 AM EDTRespiratory Ufxk823504/09/2025 2:00 PM EDTOxygen Wfjspgofuz53%06/19/2025 10:20 AM EDTInhaled Oxygen Concentration--Rvdphb044.1 kg (267 lb)06/19/2025 10:20 AM GYBUnlscv452.8 cm (5' 10 )06/19/2025 10:20 AM EDTBody Mass Index38.311 10:20 AM EDT Plan of Treatment DateTypeDepartmentCare Team (Latest Contact Info)Nhnybfohfmt76/19/2025 11:00 AM ESTOffice Visit [facility] Adult [facility]ology, A Department of [facility] [address] [phone] Alea Mckenzie MD [address] [facility] [place] [address] 12/14/2025 3:15 PM EDTOffice Visit [facility] [address] [place] [address] [place] [address] [place] [phone] Nathan Blankenship MD [address] [place] [address] 12/21/2025 10:00 AM EDTOffice Visit [facility]/Kayden Morse MD [address] [facility] [address] [place] [phone] Leeann Marshall APRN-CERTIFIED SHORTHAND REPORTER [address] [facility] [address] [place] [address], [place] [phone] Health MaintenanceDue DateLast DoneCommentsDiabetic Ophthalmology Exam1957 Adult BMI Follow Up Plan1975Zoster (Shingles) Vaccine (1 of 2)2007 Diabetic Foot Exam/01/2023Influenza Aosqcdv2405/04/2025Statin Use: Krqqnkjdhbfrpl33Statin Use: Aagefshp67/ Depression Gswbtcuxk37/Fall Risk Shvkkyhyb56/ Medicare Annual Wellness Visit/, 04/17/2023dult BMI Dfbbpaarq22/Tobacco Esujuyzfl92DTaP,Tdap and Td Vaccines (2 - Td or Tdap) Goals GoalPatient Goal TypeAssociated ProblemsRecent ProgressPatient-Stated?Author Return home Adeline Albarran, SAMUEL Note: Evaluation of progress towards goal: Plan to return home with spouse. Medical Devices ImplantedTypeAreaManufacturerDevice IdentifierShelf Expiration DateModel / Serial / LotCap Lck Creo Spnl Thrd Ns Rpl Special [id number] - [id number] Implanted:Qty: 4 on 09/21/2023 [facility]th[facility] ImplantN/A: Spine [id number] / / Graft Bn Cllr Bn Mtrx Lg 10cc Vivigen Frmbl Vivigen Rpl [id number] - [id number] Implanted:Qty: 1 on 09/21/2023 by [facility]Other ImplantN/A: Spine LimylmCsrtuho61/31/1816AN-[id number] / / [id number] Spnl Creo 45mm 5.5mm Ti Crv Ns Rpl Special [id number] - [id number] Implanted:Qty: 2 on 09/21/2023 by [facility]odN/A: Spine [id number] / / Screw Bn 50mm 6.5mm Cnn Spne Creo Ns Lf - [id number] Implanted:Qty: 4 on 09/21/2023 by [facility]crewN/A: Spine [id number] / / StentStentHeartMEDTRONIC HEART Procedures Procedure NamePriorityDate/TimeAssociated DiagnosisCommentsFOLATERoutine 06/29/2025 1:24 PM EDT Burning tongue LIVER WSZCWTscjnrd24/12/2025 9:21 AM EDT Other jail (current) drug therapy CBC WITH AUTO GGUKMNMUUWFHRjevcmx33/12/2025 9:21 AM EDT Other intermodal customer service (current) drug therapy VALPROIC ACID MGIHMVDSIgeglmc25/12/2025 9:21 AM EDT Other intermodal customer service (current) drug therapy MR LUMBAR SPINE WO OBBWZszfvsb03/14/2025 1:37 PM EDT Numbness in both legs Status post lumbar spinal fusion BEDSIDE KPBTDYJRavkdow87/07/2025 1:35 PM EDT COLONOSCOPY DIAGNOSTIC / YYOTBANQN53/07/2025 1:02 PM EDT Other constipation [K59.09] - Primary History of colon polyps [Z86.0100] Left lateral abdominal pain [R10.9] Special Needs PAT: 04/01/25 1:45pm GPOMIHWSBGX92/07/2025 12:56 PM EDT BEDSIDE OVMEICECkezrnk26/07/2025 12:39 PM EDT PROVATION MREMQHJFSXKYqtoabb00/07/2025 12:33 PM EDT PROVATION SMBCSVTHKZXHajzari68/07/2025 11:27 AM EDT BEDSIDE FCAZMHLWsawoow10/07/2025 11:19 AM EDT XR SPINE LUMB BENDING ONLY 2-3 UWCPgtlsoc52/04/2025 1:40 PM EDT Numbness in both legs Status post lumbar spinal fusion from Last 3 Months Results * Folate (06/29/2025 1:24 PM EDT)ComponentValueRef RangeTest MethodAnalysis Time Performed AtPathologist SignatureFOLIC ACID19.3>5.8 ng/mL06/29/2025 7:27 PM EDTTST. [facility] LABORATORYSpecimen (Source)Anatomical Location / LateralityCollection Method / VolumeCollection TimeReceived TimeBloodVenous blood / UnknownVenipuncture / Euhpicr2706/29/2025 1:24 PM EDT1 1:24 PM EDT Narrative Authorizing ProviderResult TypeResult StatusLeeann Marshall TILE FINISHER-CNPLAB BLOOD ORDERABLESFinal ResultPerforming OrganizationAddressCity/State/ZIP CodePhone Number [facility] [address] [place] [address], * (ABNORMAL) Valproic acid, depakane (05/15/2025 9:21 AM EDT)ComponentValueRef RangeTest MethodAnalysis TimePerformed AtPathologist SignatureVALPROIC ACID22 (L)50 - 100 ug/mL05/15/2025 1:56 PM [facility] Specimen (Source)Anatomical Location / LateralityCollection Method / Volume Collection TimeReceived TimeBloodVenous blood / UnknownVenipuncture / Unknown 05/15/2025 9:21 AM EDT05/15/2025 9:21 AM EDT Narrative Authorizing ProviderResult TypeResult StatusElizanhung Daniels MDLAB BLOOD ORDERABLESFinal ResultPerforming OrganizationAddressCity/State/ZIP CodePhone Number [facility] [address] [place] [address], * (ABNORMAL) CBC auto differential (05/15/2025 9:21 AM EDT)ComponentValueRef RangeTest MethodAnalysis TimePerformed AtPathologist SignatureWBC6.24 - 11 x10E9/L05/15/2025 1:29 PM [facility] LABORATORYRBC Count4.81 4.1 - 5.7 X10E12/L05/15/2025 1:29 PM [facility] Eophkpnxru16.813 - 17 g/dL05/15/2025 1:29 PM [facility] ZZQYDQVSSNTrvmehtuli11.239 - 50 %05/15/2025 1:29 PM [facility] SHKZEFJTFSDBP3244 - 100 fL05/15/2025 1:29 PM [facility] FXOKIITSEBUHX08.827 - 34 pg05/15/2025 1:29 PM [facility] LWJARLQJMIDQLT78.532 - 36 g/dL05/15/2025 1:29 PM [facility] SMNUTYQIUQJJI94.6(H)11.5 - 15 %05/15/2025 1:29 PM [facility] LABORATORYPlatelet Qoylg016868 - 450 X10E9/L05/15/2025 1:29 PM EDT [facility] LABORATORYMPV7.77 - 12 fL05/15/2025 1:29 PM [facility] LABORATORYNeutrophils %66.6%05/15/2025 1:29 PM [facility] LABORATORYLymphocytes %19.9%05/15/2025 1:29 PM [facility] LABORATORYMonocytes %10.5%05/15/2025 1:29 PM [facility] LABORATORYEosinophils %2.6%05/15/2025 1:29 PM [facility] LABORATORYBasophils %0.4%05/15/2025 1:29 PM [facility] LABORATORYNeutrophils Absolute (A)4.11.5 - 6.6 10*3/uL 05/15/2025 1:29 PM [facility] LABORATORYLymphocytes Absolute 1.21.0 - 3.5 10*3/uL05/15/2025 1:29 PM [facility] Monocytes Absolute0.60.0 - 0.9 10*3/uL05/15/2025 1:29 PM [facility] LABORATORYEosinophils Absolute0.20.0 - 0.4 10*3/uL05/15/2025 1:29 PM [facility] LABORATORYBasophils Absolute0.00.0 - 0.2 10*3/uL 05/15/2025 1:29 PM [facility] LABORATORYDifferential Type AUTOMATED SSLXBXPPRNDG50/12/2025 1:29 PM [facility] LABORATORYSpecimen (Source)Anatomical Location / LateralityCollection Method / VolumeCollection TimeReceived TimeBloodVenous blood / UnknownVenipuncture / Ncrbmgi9805/15/2025 9:21 AM EDT05/15/2025 9:21 AM EDT Narrative Authorizing ProviderResult TypeResult StatusElizanhung SEALS BLOOD ORDERABLESFinal ResultPerforming OrganizationAddressCity/State/ZIP CodePhone Number [facility] [address] [place] [address], * Liver panel (05/15/2025 9:21 AM EDT)ComponentValueRef RangeTest MethodAnalysis TimePerformed AtPathologist SignatureTOTAL PROTEIN7.56.0 - 8.0 g/dL05/15/2025 1:56 PM [facility] LABORATORYALBUMIN4.33.2 - 5.3 g/dL 05/15/2025 1:56 PM [facility] LABORATORYBILIRUBIN,TOTAL0.40.3 - 1.2 mg/dL05/15/2025 1:56 PM [facility] LABORATORYALKALINE DNEJUTZMIUC7533 - 130 U/L05/15/2025 1:56 PM [facility] XJGZIZFKQQAGJ83<=41 U/L05/15/2025 1:56 PM [facility] BOEZNWXRCWVPY38<=40 U/L05/15/2025 1:56 PM [facility] LABORATORYBILIRUBIN,DIRECT0.1<=0.4 mg/dL05/15/2025 1:56 PM [facility] LABORATORYSpecimen (Source)Anatomical Location / LateralityCollection Method / VolumeCollection TimeReceived TimeBloodVenous blood / Unknown Venipuncture / Hqzlqjr8905/15/2025 9:21 AM EDT05/15/2025 9:21 AM EDT Narrative Authorizing ProviderResult TypeResult StatusElizabemary ann Daniels MDLAB BLOOD ORDERABLESFinal ResultPerforming OrganizationAddressCity/State/ZIP CodePhone Number [facility] [address] [place] [address], * MR lumbar spine without contrast (04/16/2025 1:37 PM EDT)Anatomical Region LateralityModalityMSK, Neuro, Spine, L-spine, Spine CoveraN/AMagnetic ResonanceSpecimen (Source)Anatomical Location / LateralityCollection Method / VolumeCollection TimeReceived Time04/18/2025 1:02 PM EDT Narrative 04/18/2025 1:06 PM EDT HISTORY: A 69-year-old male with a history of the prior lumbar spinal fusion surgery in 2023. Complaining of the chronic low back pain. No history of recent injury. TECHNIQUE: ??Multiplanar and multisequence MRI examination of the lumbar spine is performed. COMPARISON: ??Comparison is made with MRI examination of the lumbar spine of 06/10/2024 and plain film radiographs of the lumbar spine of 04/06/2025. FINDINGS: ??The vertebral heights are normal. Mild degenerative arthritic changes in the lumbar spine. There is no evidence of spondylolisthesis. No marrow signal abnormality seen to suggest acute bony pathology. Both sacroiliac joints are intact. No significant paravertebral soft tissue abnormality is seen. At L1-L2 and L2-L3, there is no evidence of disc herniation, spinal stenosis or narrowing of the neural foramina. At L3-L4, there is no evidence of disc herniation or narrowing of the neural foramina. Mild facet arthropathy seen with mild degree of central canal narrowing. At L4-L5, there is a laminectomy with posterior lumbar spinal fusion with screws and reports. No hardware complications are seen. Minimal disc bulging is seen. Neural foramina are patent. No significant central canal narrowing is seen. At L5-S1, there is no evidence of disc herniation or narrowing of the neural foramina. Facet arthropathy seen bilaterally with mild degree of central canal narrowing. Conus is seen at the level of T12-L1. No intrathecal signal abnormality seen. IMPRESSION: * ??Laminectomy with posterior lumbar spinal fusion at L4-L5 with postsurgical change. No hardware complications are seen. No evidence of significant central canal narrowing. * ??Mild degenerative arthritis in the lumbar spine. Facet arthropathy seen at L3-L4 and L4-L5 withmild degree of central canal narrowing. Neural foramina are patent. * ??Minimal disc bulge at L3-L4. No evidence of cherie disc herniation in lumbar region. Finalized by Arturo Reed MD on 04/18/2025 1:06 PM Procedure Note Arturo Reed MD - 04/18/2025 HISTORY: A 69-year-old male with a history of the prior lumbar spinalfusion surgery in 2023. Complaining of the chronic low back pain. Nohistory of recent injury. TECHNIQUE: Multiplanar and multisequence MRI examination of the lumbarspine is performed. COMPARISON: Comparison is made with MRI examination of the lumbar spineof 06/10/2024 and plain film radiographs of the lumbar spine of 04/06/2025. FINDINGS: The vertebral heights are normal. Mild degenerative arthriticchanges in the lumbar spine. There is no evidence of spondylolisthesis. Nomarrow signal abnormality seen to suggest acute bony pathology. Bothsacroiliac joints are intact. No significant paravertebral soft tissueabnormality is seen. At L1-L2 and L2-L3, there is no evidence of disc herniation, spinalstenosis or narrowing of the neural foramina. At L3-L4, there is no evidence of disc herniation or narrowing of theneural foramina. Mild facet arthropathy seen with mild degree of centralcanal narrowing. At L4-L5, there is a laminectomy with posterior lumbar spinal fusion withscrews and reports. No hardware complications are seen. Minimal discbulging is seen. Neural foramina are patent. No significant central canalnarrowing is seen. At L5-S1, there is no evidence of disc herniation or narrowing of theneural foramina. Facet arthropathy seen bilaterally with mild degree ofcentral canal narrowing. Conus is seen at the level of T12-L1. No intrathecal signal abnormalityseen. IMPRESSION: * Laminectomy with posterior lumbar spinal fusion at L4-L5 withpostsurgical change. No hardware complications are seen. No evidence ofsignificant central canal narrowing. * Mild degenerative arthritis in the lumbar spine. Facet arthropathy seenat L3- L4 and L4-L5 with mild degree of central canal narrowing. Neuralforamina are patent. * Minimal disc bulge at L3-L4. No evidence of cherie disc herniation inlumbar region. Finalized by Arturo Reed MD on 04/18/2025 1:06 PM Authorizing ProviderResult TypeResult StatusKebebo Steen MDYana MRI ORDERABLES Final Result * (ABNORMAL) Bedside Glucose *Place/Obtain serum glucose if >500 per glucometer. (04/09/2025 1:35 PM EDT) Only the most recent of3 resultswithin the time period is included. ComponentValueRef RangeTest MethodAnalysis TimePerformed AtPathologist Signature Bedside Glucose (POC)118(H)65 - 99 mg/dL04/09/2025 1:36 PM EDTBBRIDGEWAY HOSPITALpecimen (Source)Anatomical Location / LateralityCollection Method / VolumeCollection TimeReceived Timearterial//07/2025 1:35 PM EDT 04/09/2025 1:36 PM EDT Narrative Authorizing ProviderResult TypeResult StatusMoling Ibrahim MDPOINT OF CARE TEST ORDERABLESFinal ResultPerforming OrganizationAddressCity/State/ZIP Code Phone Number [facility] [address] [place] [address], * Colonoscopy (04/09/2025 12:56 PM EDT)Specimen (Source)Anatomical Location / LateralityCollection Method / VolumeCollection TimeReceived Time04/09/2025 12:56 PM EDT Narrative PM CARDIOVASCULAR - 04/09/2025 1:47 PM EDT [facility] Name: Tom Dye ?? Procedure Date No Time: 04/09/2025 ?? CSN: [id number] Date of : 1955 Admit Type: Outpatient Age: 69 Gender: Male Attending MD: Tim Jaimes , , Procedure: ? Colonoscopy Indications: ? High risk colon cancer surveillance: Personal history ? of adenomatous colonic polyps Providers: ? Tim Jaimes Referring MD: ?Tim Jaimes Moderate Sedation: ? Medicines: ? Monitored Anesthesia Care Complications: ? No immediate complications. Procedure: ? After I obtained informed consent, the scope was ? passed under direct vision. Throughout the procedure, ? the patient's blood pressure, pulse, and oxygen ? saturations were monitored continuously. The ? Colonoscope was introduced through the anus and ? advanced to the cecum, identified by appendiceal ? orifice and ileocecal valve. The colonoscopy was ? performed without difficulty. The patient tolerated ? the procedure well. The quality of the bowel ? preparation was fair. Findings: ? The perianal and digital rectal examinations were normal. ? Multiple diverticula were found in the sigmoid colon. Estimated Blood Loss: ??Estimated blood loss: none. Impression: ?- Preparation of the colon was fair. ? - Diverticulosis in the sigmoid colon. ? - No specimens collected. Recommendation: ?- Discharge patient to home. ? - High fiber diet. ? - Continue present medications. ? - Resume Plavix today. ? - Repeat colonoscopy in 3 years because the bowel ? preparation was suboptimal. ? - Return to primary care physician. ? - Patient has a contact number available for ? emergencies. The signs and symptoms of potential ? delayed complications were discussed with the patient. ? Return to normal activities tomorrow. Written ? discharge instructions were provided to the patient. Procedure Code(s): ? --- Professional --- ? 10360, Colonoscopy, flexible; diagnostic, including ? collection of specimen(s) by brushing or washing, when ? performed (separate procedure) Diagnosis Code(s): ? --- Professional --- ? Z12.11, Encounter for screening for malignant neoplasm ? of colon ? Z86.0101, Personal history of adenomatous and serrated ? colon polyps ? K57.30, Diverticulosis of large intestine without ? perforation or abscess without bleeding CPT copyright 2023 [employer]. All rights reserved. The codes documented in this report are preliminary and upon community case manager review may be revised to meet current compliance requirements. MD Tim MaddoxZein, 04/09/2025 1:47:18 PM Number of Addenda: 0 Note Initiated On: 04/09/2025 12:56 PM Procedure Note Tim Nunez MD - 04/09/2025 [facility] Patient Name: Tom Dye Procedure Date No Time: 04/09/2025 CSN: [id number] Date of : 1955 Admit Type: Outpatient Age: 69 Gender: Male Attending MD: Tim Jaimes , , Procedure: Colonoscopy Indications: High risk colon cancer surveillance: Personalhistory of adenomatous colonic polyps Providers: Tim Jaimes Referring MD: Tim Jaimes Moderate Sedation: Medicines: Monitored Anesthesia Care Complications: No immediate complications. Procedure: After I obtained informed consent, the scope was passed under direct vision. Throughout theprocedure, the patient's blood pressure, pulse, and oxygen saturations were monitored continuously. The Colonoscope was introduced through the anus and advanced to the cecum, identified by appendiceal orifice and ileocecal valve. The colonoscopy was performed without difficulty. The patient tolerated the procedure well. The quality of the bowel preparation was fair. Findings: The perianal and digital rectal examinations were normal. Multiple diverticula were found in the sigmoid colon. Estimated Blood Loss: Estimated blood loss: none. Impression: - Preparation of the colon was fair. - Diverticulosis in the sigmoid colon. - No specimens collected. Recommendation: - Discharge patient to home. - High fiber diet. - Continue present medications. - Resume Plavix today. - Repeat colonoscopy in 3 years because the bowel preparation was suboptimal. - Return to primary care physician. - Patient has a contact number available for emergencies. The signs and symptoms of potential delayed complications were discussed with thepatient. Return to normal activities tomorrow. Written discharge instructions were provided to thepatient. Procedure Code(s): --- Professional --- 46833, Colonoscopy, flexible; diagnostic, including collection of specimen(s) by brushing or washing,when performed (separate procedure) Diagnosis Code(s): --- Professional --- Z12.11, Encounter for screening for malignantneoplasm of colon Z86.0101, Personal history of adenomatous andserrated colon polyps K57.30, Diverticulosis of large intestine without perforation or abscess without bleeding CPT copyright 2022 [employer]. All rights reserved. The codes documented in this report are preliminary and upon community case manager reviewmay be revised to meet current compliance requirements. MD Tim Maddox, 04/09/2025 1:47:18 PM Number of Addenda: 0 Note Initiated On: 04/09/2025 12:56 PM Authorizing ProviderResult TypeResult Allan Ibrahim MDGI PROCEDURE ORDERABLESFinal ResultPerforming OrganizationAddressCity/State/ZIP CodePhone Number PM CARDIOVASCULAR * Colonoscopy Report (04/09/2025 12:33 PM EDT) Only the most recent of2 resultswithin the time period is included. Specimen (Source)Anatomical Location / LateralityCollection Method / Volume Collection TimeReceived Time Narrative SYSTEMGENERATED, DOCUMENTATION - 04/09/2025 12:33 PM EDT This order has been auto-finalized for image and report archival in PACs. *For full report details, please reach out to your physician. ??This image is visible to you in MyChart.* Authorizing ProviderResult TypeResult Allan Ibrahim MDIMG OR IMG ORDERABLESFinal Result * X-ray spine lumbar flexion and extension only 2 to 3 views (04/06/2025 1:40 PM EDT)Anatomical RegionLateralityModalityMSK, Neuro, Spine, L-spineN/AComputed RadiographySpecimen (Source)Anatomical Location / LateralityCollection Method / VolumeCollection TimeReceived Time04/07/2025 12:44 PM EDT Narrative 04/07/2025 12:44 PM EDT XR SPINE LUMB BENDING ONLY 2-3 VWS Clinical history:Numbness in both legs; Status post lumbar spinal fusion Comparison: 09/22/2023 Impression: Postoperative changes of lumbar fusion hardware L4-L5 of multilevel degenerative disc disease. Multilevel facet hypertrophy. No significant movement flexion or extension. No acute process. Atherosclerotic abdominal aorta which is ectatic measuring 2.7 cm. Finalized by Nathan Karimi MD on 04/07/2025 12:44 PM Procedure Note Nathan Karimi MD - 04/07/2025 XR SPINE LUMB BENDING ONLY 2-3 VWS Clinical history:Numbness in both legs; Status post lumbar spinal fusion Comparison: 09/22/2023 Impression: Postoperative changes of lumbar fusion hardware L4-L5 of multileveldegenerative disc disease. Multilevel facet hypertrophy. No significantmovement flexion or extension. No acute process. Atherosclerotic abdominal aorta which is ectatic measuring 2.7 cm. Finalized by Nathan Karimi MD on 04/07/2025 12:44 PM Authorizing ProviderResult TypeResult StatusMynor Steen MDIMYana DIAGNOSTIC IMAGING ORDERABLESFinal Result from Last 3 Months Insurance * Guarantor: Tom Dye AAccount TypeRelation to PatientDate of BirthPhone Billing AddressPersonal/[id number]/21/[id number] [place] [address] Advance Directives TypeDate RecordedPatient RepresentativeExplanationDurable Power of Retail Interior Designer 08/08/2024 3:27 PM * Full Code (Latest Code Status on File) Date ActivatedDate InactivatedComments09/20/2023 6:01 AM09/26/2023 7:04 PM Care Teams Team MemberRelationshipSpecialtyStart DateEnd Date Leeann Marshall APRN-CERTIFIED SHORTHAND REPORTER [address] [facility] [address] [place] [address] PCP - GeneralInternal Medicine11/15/23
--- OUTSIDE RECORDS SUMMARY | 2025-07-03 12:46 | XMS_ITS | Encounter Summary ---
Author Organization [facility] Address [facility] [id number] [address] [place] [address] Care Team Providers Care Cake Cutter Machine Name Role Phone Leeann Marshall TELECOMMUNICATIONS MANAGER-LOG CLERK Primary Care Provider Encounter Details DateTypeDepartmentCare Team (Latest Contact Info)Fuoppebjfbj42/17/2025Telephone [facility]/Kayden Morse MD [address] [place] [phone] Lina Alexandre, SAMUEL Social History Tobacco UseTypesPacks/DayYears UsedDateSmoking Tobacco: NeverSmokeless [...] times a week04/17/2023How often do you attend adventist or buddhism services?More than 4 times per year04/17/2023o you belong to any clubs or organizations such as adventist groups, unions, fraternal or athletic groups, or [...] care, and heating?Not very hard 04/17/2023HQ-2AnswerDate RecordedTotal Qcilc0472/15/2025[facility] [place] of Occupational Health - Occupational Stress QuestionnaireAnswerDate [...] of a household?No04/17/2023hildcareAnswerDate RecordedDo problems getting child advocate make it difficult for you to work or study?No 04/17/2023EmploymentAnswerDate RecordedDo you need help finding a local career center and/or a training program?No04/17/2023Hunger ScreeningAnswerDate Recorded Within the past 12 months we worried whether our food would run out before we got money to buy more.Never True0722/2025Within the past 12 months the food we bought just didn't last and we didn't have money to get more.Never True 03/24/2025Purpose - LifeAnswerDate RecordedI have a purpose and direction in my life.Somewhat Agree04/17/2023Sex and Gender InformationValueDate RecordedSex Assigned at BirthNot on fileLegal BpmKoym2004/08/2015 11:45 AM EDTGender Identity Not on fileSexual OrientationNot on filedocumented as of this encounter Miscellaneous Notes * Telephone Encounter - Lina Alexandre RN - 06/19/2025 2:51 PM EDT He is not currently appropriate for CN services r/t being in psych treatment so not offered at thistime documented in this encounter Plan of Treatment DateTypeDepartmentCare Team (Latest Contact Info)Evdbkjzflmo51/19/2025 11:00 AM ESTOffice Visit [facility] of [facility] [address] [facility] [address] [place] [address] Alea Mckenzie MD [address] [facility] [place] [address] 12/14/2025 3:15 PM EDTOffice Visit [facility] [address] [facility] [address] [place] [address] [place] [address] Nathan Blankenship MD [address] [place] [address] 12/21/2025 10:00 AM EDTOffice Visit [facility] Internal [facility]/Kayden Morse MD [address] [place] [phone] Leeann Marshall, TELECOMMUNICATIONS MANAGER-LOG CLERK [address] [facility] [address] [place] [address] documented as of this encounter Goals GoalPatient Goal TypeAssociated ProblemsRecent ProgressPatient-Stated?Author Return home Adeline Albarran, RN Note: Evaluation of progress towards goal: Plan to return home with spouse. documented as of this encounter Visit Diagnoses Not on filedocumented in this encounter Additional Health Concerns AssessmentNoted TimePHQ-9 Depression Total Score: 10:00 AM EDT documented as of this encounter Care Teams Team MemberRelationshipSpecialtyStart DateEnd Date Leeann Marshall, SONIDO-QI [address] [facility] [address] [place] [address] PCP - GeneralInternal Medicine11/15/23documented as of this encounter
--- OUTSIDE RECORDS SUMMARY | 2025-07-03 12:46 | XMS_ITS ---
Author Organization [facility] tem Address [facility] [id number] [address] [place] [address] Care Team Providers Care Parks And Recreation Manager Name Role Phone Leeann Marshall GYM INSTRUCTOR-PRINT LINE FEEDER Primary Care Provider Care Navigation Status:Not Appropriate (Closed) Start date:06/19/2025 Enrollment date:06/19/2025 End date:06/19/2025 Close reason:Patient graduated Overview This episode is used to track Care Navigation outreach tasks and outcomes. Continued Care and Services Coordination
--- OUTSIDE RECORDS SUMMARY | 2025-07-03 12:46 | XMS_ITS | Encounter Summary ---
Author Organization [facility] Address [address] [place] [address] Care Team Providers Care Translator Name Role Phone Tom Pires Primary Care Provider [phone] Tom Gottlieb MD Unavailable [phone] Source Comments In the event this information is protected by the Federal Confidentiality of Alcohol and Drug AbusePatient Records regulations: The Federal rules restrict any use of the information to criminally investigate or prosecute any alcohol or drug abuse patient.[facility] Reason for Visit * ReasonCommentsResultsDiscussed MRI findings w . Patient very anxious also has OCD. He will be seeing Psychiatry. appreciative of the call Encounter Details DateTypeDepartmentCare Team (Latest Contact Info)Asqcvmhfiqu62/27/2025Telephone Neurology [address] [place] [address] [place] [address] [place] [address] Results (Discussed MRI findings w . Patient very anxious also has OCD. He will be seeing Psychiatry. appreciative of the call) Social History Tobacco UseTypesPacks/DayYears UsedDateSmoking Tobacco: NeverSmokeless Tobacco: NeverAlcohol UseStandard Drinks/WeekCommentsNot Currently2 (1 standard drink = 0.6 oz pure alcohol)PHQ-2AnswerDate RecordedPHQ-2 hhipj994/31/2025Area Deprivation IndexAnswerDate RecordedNational Score (1-100), lower number is lower wkkk092205/14/2025State Score (1-10), lower number is lower pvrb56305/14/2025 Data from: https://www.neighborhoodatlas.[facility].edu/. 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.Not on fileNot on fileNot on fileENGINEERNot on fileNot on fileNot on fileEngineerNot on fileNot on fileNot on filedocumented as of this encounter Functional Status * Are you deaf or do you have serious difficulty hearing?AnswerDate of GotszphjpgVbpuvgKk18/11/2020 3:11 PM Temitope Tate APRN.PAROLE AGENT * Are you blind or do you have serious difficulty seeing, even when wearing glasses?AnswerDate of FwoqrypunwXthpkvOq71/11/2020 3:11 PM Temitope Tate APRN.PAROLE AGENT * Do you have serious difficulty walking or climbing stairs?AnswerDate of DwcrexteysCrugwaWj33/11/2020 3:11 PM Temitope Tate APRN.PAROLE AGENT * Do you have difficulty dressing or bathing?AnswerDate of AssessmentAuthorNo 04/13/2020 3:11 PM Temitope Tate APRN.PAROLE AGENT * Because of a physical, mental, or emotional condition, do you have difficulty doing errands alone such as visiting a doctor's office or shopping?AnswerDate of AbmwqnhtbiZzuohqQz52/11/2020 3:11 PM Temitope Tate APRN.PAROLE AGENT documented as of this encounter Mental Status * Because of a physical, mental, or emotional condition, do you have serious difficulty concentrating, remembering, or making decisions?AnswerEntry Date HqniowGe37/11/2020 3:11 PM EDTCTemitope perez APRN.PAROLE AGENT documented in this encounter Miscellaneous Notes * Telephone Encounter - Ev Andersen - 06/29/2025 4:10 PM EDT Patient's is calling in requesting the results of his most recent MRI. The report in myChart is not understandable. Please call and advise. Patient has been identified by name and birthdate. Duration of symptoms: N/A Person calling: Jaci Call patient at: at cell [phone] (cell) Was an appointment scheduled: No Closing statement: Results or non-symptom based questions: Thank you for calling [facility], your call will be returned within the next business day. Ev Dhillno documented in this encounter Plan of Treatment Not on file documented as of this encounter Visit Diagnoses Not on filedocumented in this encounter Care Teams Team MemberRelationshipSpecialtyStart DateEnd Date Tom Pires [address] [place] [address] PCP - General12/12/00 Tom Gottlieb MD [address] [place] [address] Primary Staff PhysicianCardiology11/19/18documented as of this encounter
--- OUTSIDE RECORDS SUMMARY | 2025-07-03 12:46 | XMS_ITS ---
Author Organization [facility] tem Address [facility] [place]-[id number] [address] [place] [address] Care Team Providers Care Software Developer Consultant Name Role Phone Leeann Marshall OUTDOOR LANDSCAPE ARCHITECT-QUARTER LINING SMOOTHER Primary Care Provider Care Navigation Status:Complete (Closed) Start date:06/19/2025 Enrollment date:06/19/2025 End date:06/19/2025 Close reason:Patient graduated Overview This episode is used to track Care Navigation outreach tasks and outcomes. Continued Care and Services Coordination
--- OUTSIDE RECORDS SUMMARY | 2025-07-03 12:46 | XMS_ITS | Encounter Summary ---
Author Organization [facility] [place] [address] [place] [address] Care Team Providers Care Chemical Manager Name Role Phone Leeann Marshall AGER TENDER-CIVIL ATTORNEY Primary Care Provider Encounter Details DateTypeDepartmentCare Team (Latest Contact Info)Vystzxshkfi28/17/2025Telephone [facility]/Kayden Morse MD [address] [place] [phone] Lina Alexandre, SAMUEL Social History Tobacco UseTypesPacks/DayYears [...] times a week04/17/2023How often do you attend yazdanism or religion services?More than 4 times per year04/17/2023o you belong to any clubs or organizations such as yazdanism groups, unions, fraternal [...] care, and heating?Not very hard 04/17/2023HQ-2AnswerDate RecordedTotal Exlie2844/15/2025[facility] [place] of Occupational Health - Occupational Stress QuestionnaireAnswerDate [...] part of a household?No04/17/2023hildcareAnswerDate RecordedDo problems getting children's literature professor make it difficult for you to work [...] InformationValueDate RecordedSex Assigned at BirthNot on fileLegal GqqUooo7304/08/2015 11:45 AM EDTGender Identity Not on fileSexual OrientationNot on filedocumented as of this encounter Miscellaneous Notes * Telephone Encounter - Lina Alexandre RN - 06/19/2025 2:45 PM EDT I reviewed members chart. Seen by PCP today. Currently in psychiatric treatment for OCD,depression and anxiety and therefore not appropriate for CN services. documented in this encounter Plan of Treatment DateTypeDepartmentCare Team (Latest Contact Info)Yderxhxduku24/19/2025 11:00 AM ESTOffice Visit [facility], A Department of [facility] [address] [facility] [address] [place] [address] Alea Mckenzie MD [address] [facility] [place] [address] 12/14/2025 3:15 PM EDTOffice Visit [facility] [address] [place] [address] [place] [address] [place] [address] Nathan Blankenship MD [address] [place] [address] 12/21/2025 10:00 AM EDTOffice Visit [facility] Internal [facility]/Kayden Morse MD [address] [facility] [address] [place] [address] Leeann Marshall, AGER TENDER-CIVIL ATTORNEY [address] [facility] [address] [place] [address] documented as of this encounter Goals GoalPatient [...] Teams Team MemberRelationshipSpecialtyStart DateEnd Date Leeann Marshall, SONIDO-CIVIL ATTORNEY [address] [facility] [address] [place] [address] PCP - GeneralInternal Medicine11/15/23documented as of this encounter
--- OUTSIDE RECORDS SUMMARY | 2025-07-03 12:46 | XMS_ITS ---
Author Organization [facility] tem Address [facility] [id number] [address] [place] [address] Care Team Providers Care Aerospace Project Manager Name Role Phone Rolando Leeann SURGICAL SCHEDULER-WAREHOUSE SELECTOR Primary Care Provider [phone] Care Navigation Status:Not Appropriate (Closed) Start date:10/10/2023 Enrollment date:06/19/2025 Enrollment reason:Identified using hospital discharge data End date:06/19/2025 Close reason:Patient graduated Overview This episode is used to track Care Navigation outreach tasks and outcomes. Continued Care and Services Coordination
--- OUTSIDE RECORDS SUMMARY | 2025-07-03 12:46 | XMS_ITS | Encounter Summary ---
Author Organization [employer] [facility] tem Address [id number] [address] [place] [address] Care Team Providers Care Steward/Stewardess Banquet Name Role Phone Leeann Marshall TREASURY ACCOUNTANT-FLAGMAN Primary Care Provider [phone]- [phone] Encounter Details DateTypeDepartmentCare Team (Latest Contact Info)Exmxirxpmgh09/17/2025Travel Social History Tobacco UseTypesPacks/DayYears UsedDateSmoking Tobacco: NeverSmokeless [...] times a week04/17/2023How often do you attend denominational or christianity services?More than 4 times per year04/17/2023o you belong to any clubs or organizations such as denominational groups, unions, fraternal [...] care, and heating?Not very hard 04/17/2023HQ-2AnswerDate RecordedTotal Hwhwz1470/15/2025[facility] [place] of Occupational Health - Occupational Stress QuestionnaireAnswerDate [...] of a household?No04/17/2023hildcareAnswerDate RecordedDo problems getting child psychometrist make it difficult for you to work [...] InformationValueDate RecordedSex Assigned at BirthNot on fileLegal IiiSics7704/08/2015 11:45 AM EDTGender Identity Not on fileSexual OrientationNot on filedocumented as of this encounter Plan of Treatment DateTypeDepartmentCare Team (Latest Contact Info)Wbbvzxyybiq04/19/2025 11:00 AM ESTOffice Visit [facility] Adult [facility], A Department of [facility] [address] [facility] [address] [place] [address] Alea Mckenzie MD [address] [facility] [place] [address] 12/14/2025 3:15 PM EDTOffice Visit [facility] [address] [place] [address] [place] [phone] Nathan Blankenship MD [address] [place] [address] 12/21/2025 10:00 AM EDTOffice Visit [facility] Internal Medicine/Kayden Morse MD [address] [facility] [address] [place] [phone] Leeann Marshall APRN-QI [address] [facility] [address] [place] [phone] documented as of this encounter Goals GoalPatient [...] Teams Team MemberRelationshipSpecialtyStart DateEnd Date Leeann Marshall APRN-QI [address] [facility] [address] [place] [address] PCP - GeneralInternal Medicine11/15/23documented as of this encounter
--- OUTSIDE RECORDS SUMMARY | 2025-07-03 12:46 | XMS_ITS | Encounter Summary ---
Author Organization [facility] Address [address] [place] [address] Care Team Providers Care Munitions Handler Supervisor Name Role Phone Tom Pires Primary Care Provider Tom Gottlieb MD Unavailable Source Comments In the event this information is protected by the Federal Confidentiality of Alcohol and Drug AbusePatient Records regulations: The Federal rules restrict any use of the information to criminally investigate or prosecute any alcohol or drug abuse patient.[facility] Encounter Details DateTypeDepartmentCare Team (Latest Contact Info)Nidroimcoum01/31/2025Travel Social History Tobacco UseTypesPacks/DayYears UsedDateSmoking Tobacco: NeverSmokeless Tobacco: NeverAlcohol UseStandard Drinks/WeekCommentsNot Currently2 (1 standard drink = 0.6 oz pure alcohol)PHQ-2AnswerDate RecordedPHQ-2 eseos876rea Deprivation IndexAnswerDate RecordedNational Score (1-100), lower number is lower zfks659105/14/2025State Score (1-10), lower number is lower etfh22405/14/2025 Data from: https://www.neighborhoodatlas.medicine.[facility].edu/. 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 Green[employer].Not on fileNot on fileNot on fileENGINEERNot on fileNot on fileNot on fileEngineerNot on fileNot on fileNot on filedocumented as of this encounter Functional Status * Are you deaf or do you have serious difficulty hearing?AnswerDate of IsvvvnhkmuHwndrkBu40/11/2020 3:11 PM Temitope Tate APRN.WHISKEY FILTERER * Are you blind or do you have serious difficulty seeing, even when wearing glasses?AnswerDate of OnjblyldawPzoepzBv75/11/2020 3:11 PM Temitope Tate APRN.WHISKEY FILTERER * Do you have serious difficulty walking or climbing stairs?AnswerDate of OkzlgimmgfUvtyvgZf47/11/2020 3:11 PM Temitope Tate APRN.WHISKEY FILTERER * Do you have difficulty dressing or bathing?AnswerDate of AssessmentAuthorNo 04/13/2020 3:11 PM Temitope Tate APRN.WHISKEY FILTERER * Because of a physical, mental, or emotional condition, do you have difficulty doing errands alone such as visiting a doctor's office or shopping?AnswerDate of FfjfudzrntDjxrvjLf53/11/2020 3:11 PM Temitope Tate APRN.WHISKEY FILTERER documented as of this encounter Mental Status * Because of a physical, mental, or emotional condition, do you have serious difficulty concentrating, remembering, or making decisions?AnswerEntry Date LfjwkbLg82/11/2020 3:11 PM Temitope Tate APRN.WHISKEY FILTERER documented in this encounter Plan of Treatment Not on file documented as of this encounter Visit Diagnoses Not on filedocumented in this encounter Care Teams Team MemberRelationshipSpecialtyStart DateEnd Date Tom Pires [address] [place] [address] PCP - General12/12/00 Tom Gottlieb MD [address] [place] [address] Primary Staff PhysicianCardiology11/19/18documented as of this encounter
--- OUTSIDE RECORDS SUMMARY | 2025-07-03 12:46 | XMS_ITS | Clinical Summary ---
Author Organization [facility] Address [address] [place] [address] Care Team Providers Care Banquet Stewardess Name Role Phone Tom Pires MD Primary Care Provider [phone] Allergies No known active allergies Medications MedicationSigDispense QuantityRefillsLast FilledStart DateEnd DateStatus busPIRone HCl (BUSPAR PO) 20 mg in the morning and 20 mg before bedtime.Active melatonin 3 MG tablet 11/21/2022ctive Insulin Lispro 100 UNIT/ML solution Inject under the skin in the morning and at noon and in the evening. Inject with meals.Active traZODone (Desyrel) 50 MG tablet 11/21/2022ctive sildenafil (Viagra) 50 MG tablet Take 50 mg by mouth Daily as ivhvdw5510/11/2022ctive labetalol (Normodyne) 200 MG tablet Take 1 tablet by mouth in the morning and 1 tablet before bedtime.09/22/2022 Active atorvastatin (Lipitor) 80 MG tablet Take 80 mg by mouth Daily 1/2 tab daily10/08/2023ctive carvedilol (Coreg) 12.5 MG tablet Take 12.5 mg by mouth in the morning and 12.5 mg in the evening.10/15/2023ctive DULoxetine HCl 60 MG Capsule Delayed Release Sprinkle Take 60 mg by mouth in the morning.Active Toujeo Max SoloStar 300 UNIT/ML injection Inject 42 Units under the skin in the morning.10/15/2023ctive losartan (Cozaar) 25 MG tablet Take 25 mg by mouth in the morning.09/26/2023ctive nitroglycerin (Nitrostat) 0.4 MG SL tablet every 5 (five) minutes if ljomwc4110/06/2023ctive clopidogrel (Plavix) 75 MG tablet Take 75 mg by mouth DailyActive Jardiance 25 MG Take 25 mg by mouth Daily08/17/2024ctive Ozempic, 2 MG/DOSE, 8 MG/3ML solution pen-injector 08/31/2024ctive furosemide (Lasix) 20 MG tablet Take by mouth PRNActive aspirin 81 MG EC tablet Take 81 mg by mouth DailyActive spironolactone (Aldactone) 25 MG tablet Take by mouth Daily 1/2 tab dailyActive insulin lispro (Admelog SoloStar) 100 UNIT/ML injection Inject under the skin in the morning and at noon and in the evening. Inject with meals.Active mirtazapine (Remeron) 15 MG tablet Take 15 mg by mouth at bedtimeActive divalproex (Depakote) 125 MG EC tablet Take 250 mg by mouth in the morning and 250 mg before bedtime. Do not crush, chew, or split.Active Potassium 99 MG tablet Take by mouthActive LORazepam (Ativan) 0.5 MG tablet Take 0.5 mg by mouth every 6 (six) hours if needed PRNActive cholecalciferol (Vitamin D-3) 125 MCG (5000 UT) capsule Take 5,000 Units by mouth DailyActive [place]-3 Fatty Acids (Fish Oil) 1200 MG capsule delayed-release Take by mouthActive hydrOXYzine HCl (Atarax) 25 MG tablet TAKE 1 TABLET BY MOUTH 4 TIMES A DAY NEEDED FOR ANXIETY OR LOJBUTAP02/04/2024 Active hyoscyamine (Levsin) 0.125 MG SL tablet Take 125 mcg by mouth every 4 (four) hours if vtengo3110/22/2024tive potassium chloride ER (Micro-K) 10 MEQ ER capsule Take 10 mEq by mouth Daily as neededActive potassium chloride CR (Klor-Con) 10 MEQ ER tablet TAKE 1 TABLET (10 MEQ) BY MOUTH ONCE DAILY. DO NOT CRUSH, CHEW, OR SPLIT.Active atorvastatin (Lipitor) 40 MG tablet Take 40 mg by mouth Daily5Active busPIRone (Buspar) 10 MG tablet Take 20 mg by mouth in the morning and 20 mg before bedtime.5Active busPIRone (Buspar) 5 MG tablet Take 5 mg by mouth in the morning and 5 mg before bedtime.06/19/2024ctive Natural Vitamin D-3 125 MCG (5000 UT) tablet TAKE 1 TABLET (5,000 UNITS TOTAL) BY MOUTH IN THE MORNING.5Active divalproex sprinkle (Depakote Sprinkle) [address] capsule TAKE 2 TABLETS BY MOUTH TWICE DAILY FOR 30 DAYSActive DULoxetine (Cymbalta) [address] capsule Take 30 mg by mouth Daily06/09/2024ctive DULoxetine (Cymbalta) [address] capsule Take 60 mg by mouth Daily01/05/2025tive furosemide (Lasix) 20 MG tablet Take 20 mg by mouth5Active LORazepam (Ativan) 1 MG tablet TAKE 1 TABLET BY MOUTH EVERY 8 HOURS NEEDED FOR ANXIETY FOR UP TO 10 DAYS 5Active mirtazapine (Remeron) 15 MG tablet Take 15 mg by mouth at zknvusj6808/08/2024ctive risperiDONE (RisperDAL) 0.5 MG tablet 5Active traZODone (Desyrel) 100 MG tablet TAKE 1/2 TO 1 TABLET BY MOUTH AT BEDTIME NEEDED FOR SLEEP5Active gentamicin (Garamycin) 0.1 % ointment Indications:Ulcer of right foot with fat layer exposed (HCC)Apply to wound once daily. 30 g 5Active Active Problems ProblemNoted DateDiagnosed DateTear of right rotator cuff03/09/2025Dementia with behavioral gwxngjuozip66/23/2024Hypertensive heart gmsxpms7707/26/2024Insomnia 07/26/2024Severe episode of recurrent major depressive disorder, without psychotic dnwgefdw63/23/2024Type 2 diabetes mellitus without complications 07/26/2024therosclerosis of coronary artery without angina raqpvjcy12/23/2024 Never smoked bzycrsoxwt29/13/6004Wpiutrckyz94/01/2024Urinary vqitogrgy20/05/2024 Overview (03/09/2025): ====12/10/24==== Doing well off tamsulosin. PVR 34. JESSICA benign. Due for PSA ==== 02/06/2024 ==== history retention after back surgery. He has been on Flomax. Tamsulosin. Tolerating medication. Query whether not to come off of it. PVR is very acceptable. Diffuse like he is voiding well. Plan: May stop her start his tamsulosin. Would be reasonable to check PVR in about 3 months. Old WI (myocardial infarction)01/22/20241941Valnhvu32/21/2024History of PTCA 01/22/2024Ischemic ddfbqupmppnoha49/14/2024Major psychotic depression, recurrent 10/17/2023cute MI10/15/2023ST elevation myocardial infarction (STEMI) of inferior wall10/15/20237025Bpjigoiylfzh90/12/2024Spinal stenosis at L4-L5 level 10/15/2023ack pain09/20/2023Lower extremity pyidqmbl68/18/2024Esophageal reflux 08/30/2023ody mass index (BMI) of 32.0 to 32.9 in adult08/30/2023Obesity (BMI 30-39.9)08/30/2023iabetes ujhhilja67/28/2023AD, multiple ovpofp8308/30/2023 History of coronary artery bypass graft08/30/2023hronic diastolic CHF (congestive heart failure)02/05/2023Moderate episode of recurrent major depressive whooiaaa68/24/2023bsolute adjujz8811/16/2022omplaint of paresthesia 11/16/2022utonomic neuropathy due to type 2 diabetes /29/2022rimary osteoarthritis of right knee06/01/2022 Overview (02/05/2023): Last Assessment & Plan: Assessment: will have surgery Last Assessment & Plan: Assessment: will have surgery Retinal bknbctzvru19/29/2022bstructive sleep apnea qqrborth82/29/2022ognitive communication yzcchvx1103/23/2021Memory loss03/23/2021MCI (mild cognitive impairment)02/25/2021Obesity, Class II, BMI 35-39.908/07/2020S/P total knee arthroplasty, right04/12/2020Type 2 diabetes mellitus with diabetic peripheral angiopathy without gangrene, with long-term current use of kbghcrg4810/13/2019 Obsessive-compulsive yimyuwnx28/07/2019Cataract, nuclear sclerotic senile, right 08/14/2018 Overview (02/05/2023): Added automatically from request for surgery [id number] Added automatically from request for surgery [id number] Mixed anxiety and depressive fjntngig25/05/2018Dyspnea, qagxzhshiod50/29/2016 Skin tag01/29/2015Rotator cuff zxrfio6602/14/2013Chronic cough11/07/2012Esophageal vldydlyfv53/07/2013Heartburn lxrsllt2511/07/2012Vocal cord yvqaqwmxp43/07/2013 Overview (03/09/2025): Last Assessment & Plan: Assessment: had in 2012, no further episodes Family history of ischemic heart pcfzefa5306/28/20114667Zwbgryi05/26/2011 Kzvupozdykybbl95/26/2011 Overview (02/05/2023): Last Assessment & Plan: Assessment: no meds currently ,stable Last Assessment & Plan: Assessment: no medscurrently ,stable Vmixqfjfqr22/26/2011 Overview (02/05/2023): Last Assessment & Plan: Assessment: sees Psychiatrist will have Evaluation Pre op with Dr. Leeann Darling 04/02/20 for surgery Primary kkvlzqrjnbit86/26/2011 Overview (02/05/2023): Last Assessment & Plan: Assessment: on med,moniotred per PCP BP 143/74 pulse 64 Last Assessment & Plan: Assessment: on med,moniotred per PCP BP 143/74 pulse 64 S/P CABG (coronary artery bypass graft)06/28/2011 Overview (02/05/2023): Last Assessment & Plan: Assessment: had in 2008,monitored per PCP Vitamin D kicadbvica89/26/7115Szajavmfyvt66/26/2011Mixed hyperlipidemia 06/28/2011 Overview (03/09/2025): Last Assessment & Plan: Assessment: no meds currently ,stable Hyyfjgagkyva83/26/2011Other states following surgery of eye and umnjbo9605/05/2011 Vcfzacuisdkk61/02/2011Coronary powreoepritezwe39/18/2009 Overview (02/05/2023): Last Assessment & Plan: Assessment: monitored per PCP Sleep apnea10/04/2008 Overview (02/05/2023): s/p uvula surgery Last Assessment & Plan: Assessment: uses CPAP Anxiety state07/09/2006 Encounters DateTypeDepartmentCare LlsoCwwlzmphonx49/08/2025 10:45 AM EDTOffice Visit [facility] [address] [place] [phone] Mikie Singleton DPM Hammer toe of left foot (Primary Dx); Corns and callosities; Diabetic polyneuropathy associated with type 2 diabetes mellitus (HCC); Dystrophic nail; Dermatophytosis of nail06/10/2025amboo flowsheet [facility] [address] [place] [phone] Mikie Singleton DPM 06/10/20259655Uhpgmg74/07/2025Travelfrom Last 3 Months Immunizations ImmunizationAdministration DatesNext DuePneumococcal Polysaccharide PPSV23 09/14/2011Tdap12/31/2024 Family History Medical HistoryRelationNameCommentsCongenital heart diseaseFatherDiabetesMother Cailin May FehlStrokeMotherDella May FehlHypertensionOtherMental illnessOther RelationNameStatusCommentsFatherDeceasedMotherDella May FehlDeceasedOther Social History Tobacco UseTypesPacks/DayYears UsedDateSmoking Tobacco: Never Tobacco Cessation:Counseling Given: Not Answered Alcohol UseStandard Drinks/WeekCommentsYes1 (1 standard drink = 0.6 oz pure alcohol)AUDIT-CAnswerDate RecordedQ1: How often do you have a drink containing alcohol?Never11/22/2023Q2: How many drinks containing alcohol do you have on a typical day when you are drinking?1 or Q3: How often do you have six or more drinks on one occasion?Never11/22/2023Sex and Gender InformationValue Date RecordedSex Assigned at BirthNot on fileLegal CokYyhx0511/15/2022 7:10 PM EDT Gender IdentityNot on fileSexual OrientationNot on file Last Filed Vital Signs Vital SignReadingTime TakenCommentsBlood Pressure--Pulse--Temperature-- Respiratory Rate--Oxygen Saturation--Inhaled Oxygen Concentration--Fmsnbc075 kg (250 lb)06/10/2025 10:45 AM DWJGriqtv414.3 cm (5' 11 )06/10/2025 10:45 AM EDT Body Mass Index34.8706/10/2025 10:45 AM EDT Plan of Treatment DateTypeDepartmentCare Team (Latest Contact Info)Rqswwdlobjg36/19/2025 10:45 AM ESTOffice Visit [facility] [address] [place] [address] Mikie Singleton DPM [address] [place] [address] Insurance * Guarantor: Tom Dye TypeRelation to PatientDate of BirthPhone Billing AddressPersonal/WwtoftZlyq90/21/1956 [address] [place] [address] Care Teams Team MemberRelationshipSpecialtyStart DateEnd Date Tom Pires MD [address] [place] [address] PCP - GeneralInternal Medicine01/30/23
--- OUTSIDE RECORDS SUMMARY | 2025-07-03 12:46 | XMS_ITS | Encounter Summary ---
Author Organization [facility] tem Address [id number] [place] [address] Care Team Providers Care Dump Motorman Name Role Phone Leeann Marshall FIELD SECRETARY-PENSION AGENT Primary Care Provider [phone] Encounter Details DateTypeDepartmentCare Team (Latest Contact Info)Pdmhagyjwyj07/19/2025Results Follow-Up [facility] [address] [place] [phone] Shanice Kline APRN-QI [address] [phone] MR lumbar spine without contrast Social History Tobacco UseTypesPacks/DayYears UsedDateSmoking Tobacco: NeverSmokeless [...] times a week04/17/2023How often do you attend sabianist or rastafarian services?More than 4 times per year3Do you belong to any clubs or organizations such as sabianist groups, unions, fraternal [...] care, and heating?Not very hard 04/17/2023HQ-2AnswerDate RecordedTotal Dusno6791/15/2025Fin[facility] [place] of Occupational Health - Occupational Stress QuestionnaireAnswerDate [...] part of a household?No04/17/2023hildcareAnswerDate RecordedDo problems getting early childhood worker make it difficult for you to work [...] InformationValueDate RecordedSex Assigned at BirthNot on fileLegal IxfGses1104/08/2015 11:45 AM EDTGender Identity Not on fileSexual OrientationNot on filedocumented as of this encounter Miscellaneous Notes * Telephone Encounter - Lexi Scott RN - 04/21/2025 8:52 AM EDT Jaci left a message stating Tom had an MRI and Xray. He initially had an appointment in May and the appointment got pushed out until June. Jaci states Tom has persistent pain, is off balance and wobbly, his incontinence is getting more frequent and all of this is affecting his mental health. She states all these symptoms are similar to what he had prior to his emergent surgery last time. She is inquiring what to do as his appointment is now pushed out longer. * Telephone Encounter - Lexi Scott RN - 04/21/2025 8:52 AM EDT Spoke to Jaci and updated her on Tom's MRI results. Advised Jaci we would update the provider regarding her concerns to determine if there are any additional recommendations prior to Tom's follow up appointment. We will call her back when we receive further direction. documented in this encounter Plan of Treatment DateTypeDepartmentCare Team (Latest Contact Info)Fqjhnrfnksd34/19/2025 11:00 AM ESTOffice Visit [facility] Department of [facility] [address] [facility] [address] [place] [address] Alea Mckenzie MD [address] [facility] [place] [address] 12/14/2025 3:15 PM EDTOffice Visit [facility] [address] [place] [address] [address] [facility] [phone] Nathan Blankenship MD [address] [place] [address] 12/21/2025 10:00 AM EDTOffice Visit [facility] Internal Medicine/Kayden Morse MD [address] [facility] [address] [place] [phone] Leeann Marshall APRN-CNP [address] [facility] [address] [place] [address] documented as of this encounter Goals GoalPatient [...] Teams Team MemberRelationshipSpecialtyStart DateEnd Date Leeann Marshall APRN-CNP [address] [facility] [address] [place] [address] PCP - GeneralInternal Medicine11/15/23documented as of this encounter
--- OUTSIDE RECORDS SUMMARY | 2025-07-03 12:46 | XMS_ITS | Encounter Summary ---
Author Organization [employer] [facility] tem Address [id number] [address] [place] [address] Care Team Providers Care Voltage Tester Name Role Phone Leeann Marshall SYSTEM ANALYST-PIPE ORGAN TECHNICIAN Primary Care Provider [phone] Encounter Details DateTypeDepartmentCare Team (Latest Contact Info)Kcpfmabwmkn54/27/2025Travel Social History Tobacco UseTypesPacks/DayYears UsedDateSmoking Tobacco: NeverSmokeless [...] times a week04/17/2023How often do you attend congregation or gnosticist services?More than 4 times per year04/17/2023o you belong to any clubs or organizations such as congregation groups, unions, fraternal or athletic groups, or [...] care, and heating?Not very hard 04/17/2023HQ-2AnswerDate RecordedTotal Djjxp8837/15/2025[facility] [place] of Occupational Health - Occupational Stress QuestionnaireAnswerDate [...] part of a household?No04/17/2023hildcareAnswerDate RecordedDo problems getting rn maternal child make it difficult for you to work [...] InformationValueDate RecordedSex Assigned at BirthNot on fileLegal EbvJvpv3104/08/2015 11:45 AM EDTGender Identity Not on fileSexual OrientationNot on filedocumented as of this encounter Plan of Treatment DateTypeDepartmentCare Team (Latest Contact Info)Zotjjwjpfhh50/19/2025 11:00 AM ESTOffice Visit [facility] Adult [facility]ology, A Department of [facility] [address] [facility] [address] [place] [address] Alea Mckenzie MD [address] [facility] [place] [address] 12/14/2025 3:15 PM EDTOffice Visit [facility] [address] [place] [address] [place] [phone] Nathan Blankenship MD [address] [place] [address] 12/21/2025 10:00 AM EDTOffice Visit [facility] Internal [facility]/Kayden Morse MD [address] [facility] [address] [place] [phone] Leeann Marshall APRN-QI [address] [facility] [address] [place] [phone] documented as of this encounter Goals GoalPatient [...] MemberRelationshipSpecialtyStart DateEnd Date Leeann Marshall APRN-QI [address] [facility] [address] [place] [address] PCP - GeneralInternal Medicine11/15/23documented as of this encounter
--- OUTSIDE RECORDS SUMMARY | 2025-07-03 12:47 | XMS_ITS | Clinical Summary ---
Author Organization [facility] Address [address] [place] [id number] Care Team Providers Care Head Of Marketing Analytics Name Role Phone Tom Pires Primary Care Provider [phone] Tom Gottlieb MD Unavailable Allergies No known active allergies Medications * This document contains information received from the source organization and may not represent a complete record from that organization. MedicationSigDispense QuantityRefillsLast FilledStart DateEnd DateStatus chlorthalidone (HYGROTON) 25 mg tablet chlorthalidone 25 mg tabletActive cloNIDine HCl (CATAPRES) 0.1 mg tablet clonidine HCl 0.1 mg tablet TAKE 1 TABLET BY MOUTH THREE TIMES A DAYActive amLODIPine (NORVASC) 10 mg tablet Take 10 mg by mouth.Active metFORMIN (GLUCOPHAGE) 500 mg tablet Take 500 mg by mouth twice daily with meals. Active semaglutide (OZEMPIC SUBCUTANEOUS) Inject 1 Dose subcutaneously one time a week. 50 mg weekly Active MEDICATION, NON-DATABASE supplementsActive mupirocin (BACTROBAN) 2 % ointment Indications:Pre-op exam,Primary osteoarthritis of right knee,Essential hypertension,S/P CABG (coronary artery bypass graft),Unspecified sleep apnea, Prediabetes,Atherosclerosis of [place] coronary artery of [place] heart without angina pectoris,Vocal cord granuloma,Hyperlipidemia, unspecified hyperlipidemia type,Esophageal strictureApply 0.5 inch with cotton swab (Q-tip) to each nostril in the morning and evening for 5 days priorto and including day of surgery. 22 g 04/01/2020Active Additional Information Patient not taking.Reason: Course of Therapy Completed, Reported on 05/14/[address] (PROTONIX) 20 mg tablet Take 1 tablet by mouth once daily for 14 days. 14 tablet 04/13/2020 1:34 PM EDT04/11/2020Active insulin lispro (ADMELOG SOLOSTAR U-100 INSULIN) 100 unit/mL Inject 4 Units subcutaneously three times a day before meals.10/17/2024tive TOUJEO MAX U-300 SOLOSTAR 300 unit/mL (3 mL) inpn Inject 42 Units subcutaneously daily at bedtime.10/15/2023ctive semaglutide (OZEMPIC) 0.25 mg or 0.5 mg(2 mg/1.5 mL) pen Inject 2 mg subcutaneously one time a week.Active JARDIANCE 25 mg tablet Take 25 mg by mouth daily with breakfast.03/15/2024ctive clopidogrel (PLAVIX) 75 mg tablet Take 75 mg by mouth once daily.03/15/2024ctive aspirin, enteric coated (ASPIRIN, ENTERIC COATED) 81 mg EC tablet Take 81 mg by mouth once daily.10/08/2023ctive atorvastatin (LIPITOR) 40 mg tablet Take 40 mg by mouth once daily.09/29/2024tive carvedilol (COREG) 12.5 mg tablet Take 12.5 mg by mouth two times a day.Active losartan (COZAAR) 25 mg tablet Take 25 mg by mouth once daily.09/26/2023ctive spironolactone (ALDACTONE) 25 mg tablet Take 12.5 mg by mouth once daily.10/08/2023ctive nitroglycerin sublingual (NITROQUICK) 0.4 mg SL tablet Dissolve 0.4 mg under the tongue every 5 minutes as needed.10/06/2023ctive DULoxetine DR (CYMBALTA) 60 mg capsule Take 60 mg by mouth once daily.03/15/2024ctive LORazepam (ATIVAN) 0.5 mg Take 0.5 mg by mouth every 6 hours as needed.Active cyanocobalamin (VITAMIN B-12) 1,000 mcg tab Take 1 tablet by mouth once daily. 30 tablet ctive cholecalciferol (VITAMIN D-3) 5,000 unit tab Take 5,000 Units by mouth once daily.Active melatonin 10 mg cap Take 1 capsule by mouth daily at bedtime.Active omega-3 DHA-EPA (FISH OIL) 1,200 (144-216) mg capsule Take 1 capsule by mouth daily with breakfast.Active risperiDONE (RISPERDAL) 0.5 mg tablet Half tablet in the morning and one tablet at bedtime for one week. THEN one tablet at bedtime for one week. THEN half tablet at bedtime for one week. THEN stop 22 tablet 06/05/2025tive DULoxetine DR (CYMBALTA) 30 mg capsule Take 1 capsule by mouth once daily. Take with the 60mg capsule 90 capsule 5Active busPIRone (BUSPAR) 10 mg tablet Take 1 tablet by mouth two times a day. 180 tablet tive divalproex sprinkle (DEPAKOTE SPRINKLES) 125 mg capsule Take 2 capsules by mouth two times a day. 360 capsule tive mirtazapine (REMERON) 15 mg tablet Take 1 tablet by mouth daily at bedtime. 90 tablet tive busPIRone (BUSPAR) 10 mg tablet Take 20 mg by mouth three times daily. 06/05/2025Discontinued mirtazapine (REMERON) 15 mg tablet Take 15 mg by mouth daily at bedtime.Discontinued busPIRone (BUSPAR) 10 mg tablet Take 10 mg by mouth two times a day.Discontinued divalproex sprinkle (DEPAKOTE SPRINKLES) 125 mg capsule Take 250 mg by mouth two times a day.Discontinued risperiDONE (RISPERDAL) 1 mg tablet Take 0.5 mg by mouth once daily.Discontinued Active Problems ProblemNoted DateDiagnosed DateMemory loss03/23/2021ognitive communication afuieha5903/23/2021MCI (mild cognitive impairment)02/25/2021Obesity, Class II, BMI 35-39.908/07/2020S/P total knee arthroplasty, right04/12/2020Cataract, nuclear sclerotic senile, right08/14/2018 Overview (08/14/2018): Added automatically from request for surgery [id number] Dyspnea, jserhpityvy25/29/2016Skin tag01/29/2015Rotator cuff mmkkzg7702/14/2013 Vocal cord hcomiykkd91/07/2013 Assessment & Plan (04/01/2020 4:05 PM EDT): Assessment: had in 2012, no further episodes Chronic cough11/07/2012Esophageal ukbzgwhtb86/07/2013 Assessment & Plan (04/01/2020 4:05 PM EDT): Assessment: had in 2012,no further episodes Heartburn rooerwb2511/07/20125868Xkrvpoptetkk61/26/2011 Assessment & Plan (04/01/2020 4:08 PM EDT): Assessment: on med,moniotred per PCP BP 143/74 pulse 64 Dfqzprgbjjzdvg75/26/2011 Assessment & Plan (04/01/2020 4:07 PM EDT): Assessment: no meds currently ,stable S/P CABG (coronary artery bypass graft)06/28/2011 Assessment & Plan (04/01/2020 4:07 PM EDT): Assessment: had in 2008,monitored per PCP Fdmbhpbxxjt72/26/2011 Assessment & Plan (04/01/2020 4:07 PM EDT): Assessment: on oral med, monitored per PCP last glucose result in epic of 11/23/19 (112) Qpkcvanofw77/26/2011 Assessment & Plan (04/01/2020 4:06 PM EDT): Assessment: sees Psychiatrist will have Evaluation Pre op with Dr. Leeann Darling 04/02/20 for surgery Vitamin D jstyzcrjkl35/26/7997Zzmxrho36/26/2011Family history of ischemic heart uwccmhl8606/28/2011Other states following surgery of eye and ltrsnc8705/05/2011 Kmkxrqbnqjrc39/02/2011Senile cataract, pjtbptnppvi09/02/2011Coronary vkxkorkodxrmthl61/18/2009 Assessment & Plan (04/01/2020 4:08 PM EDT): Assessment: monitored per PCP Unspecified sleep apnea10/04/2008 Overview (04/01/2020): s/p uvula surgery Assessment & Plan (04/01/2020 4:05 PM EDT): Assessment: uses CPAP Senile nuclear uxmpwymbe96/06/2006nxiety state07/09/2006Primary osteoarthritis of right knee Assessment & Plan (04/01/2020 4:04 PM EDT): Assessment: will have surgery Resolved Problems ProblemNoted DateDiagnosed DateResolved DatePONV (postoperative nausea and vomiting)Fluid wrtorfog67 Overview (10/10/2008): 10/10/2008 Gentle diuresis. Hypotension, mnmwzyftcqd53 Overview (10/10/2008): 10/10/2008 Wean levo for maps 65-85. Type II or unspecified type diabetes mellitus without mention of complication, not stated as zdfkkgktlkev57Mixed rhcpghaypvhpzx29/06/2006 06/28/2011 Encounters * This document contains information received from the source organization and may not represent a complete record from that organization. DateTypeDepartmentCare NjdhVlevaoloncr24/31/7684Tvoogi17/27/2025Telephone Neurology [address] [place], [place] [id number] Rodrigue Bush MD Results (Discussed MRI findings w . Patient very anxious also has OCD. He will be seeing Psychiatry. appreciative of the call)06/13/2025 3:07 PM EDT - 06/13/2025 11:59 PM EDTHospital Encounter [facility] [address] [place] [address] Cognitive impairment, mild, so stated [G31.84] Discharge Disposition: Home06/02/20255089Nyuzed86/25/2025Telephone Psychiatry [address] [place] [address] Rodrigue Bush MD 05/14/2025 1:40 PM EDTOffice Visit Neurology [address] [facility] [place] [address] Rodrigue Bush MD Memory loss (Primary Dx); Cognitive impairment, mild, so stated; Obsessive-compulsive disorder, unspecified type; Recurrent major depressive disorder, remission status unspecified; CANDIDA (generalized anxiety disorder); MCI (mild cognitive impairment)from Last 3 Months Immunizations ImmunizationAdministration DatesNext Duepneumococcal polysaccharide (PPV23) vaccine, 23 valent (PNEUMOVAX 23)09/14/2011 Family History Medical HistoryRelationCommentsHeartFatherMI age 56DiabetesMotherStrokeMotherNo Ocular DiseaseOtherRelationStatusCommentsFatherDeceased (Age 82) CHFMother (Age 76)Other Social History Tobacco UseTypesPacks/DayYears UsedDateSmoking Tobacco: NeverSmokeless Tobacco: Never Tobacco Cessation:Counseling Given: Yes Alcohol UseStandard Drinks/WeekCommentsNot Currently2 (1 standard drink = 0.6 oz pure alcohol)PHQ-2AnswerDate RecordedPHQ-2 lbojg587rea Deprivation IndexAnswerDate RecordedNational Score (1-100), lower number is lower risk65 05/14/2025State Score (1-10), lower number is lower ilns45805/14/2025Data from: https://www.neighborhoodatlas.medicine.[facility].edu/. 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.Not on fileNot on fileNot on fileENGINEERNot on fileNot on fileNot on fileEngineerNot on fileNot on fileNot on file Last Filed Vital Signs Vital SignReadingTime TakenCommentsBlood Tpazmlzj870/6509 2:16 PM EDT Tclga5493 1:51 PM MQKYpetpkhllfb01.7 ??C (98.1 ??F)04/13/2020 12:18 PM EDTRespiratory Ihts134904/13/2020 12:18 PM EDTOxygen Uhuracskxo43%04/13/2020 12:18 PM EDTInhaled Oxygen Concentration--Qlqxpq447.9 kg (271 lb)06/09/2020 11:27 AM MSURzuxss810.3 cm (5' 11 )06/09/2020 11:27 AM EDTBody Mass Index37.81 11:27 AM EDT Plan of Treatment Health MaintenanceDue DateLast DoneCommentsAnnual PCP Team Chronic Disease Visit 1975Hepatitis C Yjhfsyehk22/21/1976CT Bbqyuoljlgil64/21/2003Cologuard (FIT-DNA)2002Fecal Occult Blood2002Prostate Cancer Screening Tqxeejeqml26/21/1397Htmlpmrlidwbo19/21/2003Shingrix Vaccine (1 of 2)2007 Pneumococcal Vaccine: 50+ (2 of 2 - PCV)RSV Vaccine (1 - Risk 60-74 years 1-dose series)2017LDL Esqcntborzl63, 10/03/2011, 05/05/2011, Additional history existsAdvance Directive Discussion 09/03/2024Medicare Advantage Annual Wellness Visit5Covid-19 Vaccine ( - season)2025Influenza Vaccine (#1), 06/03/20118105Cegjqxwjtbj42/07/202608/olorectal Cancer Gqdkzxwtd21/07/2026 Diabetes Ukomzekqv58, 03/11/2025, 01/18/2025, Additional history existsLipid Bmvxvajdp45, 11/16/2023, 09/17/2023, Additional history existsDTaP,Tdap,Td Vaccine (2 - Td or Tdap)12/31/2034 12/31/2024 Medical Devices ImplantedTypeAreaManufacturerDevice IdentifierShelf Expiration DateModel / Serial / LotBone Cement Palacos Radiopaque W/Gentamicin - [id number] [facility] - KneeZIMMER INC03/02/[id number] / / [id number]:bone cement with 0.5g gentamycinCement Simplex P Bone Radiopaque Full Dose Sterile - [id number] Implanted:Qty: 1 on [facility]/2020 [facility] - KneeSTRY-HOW THNPFQXBUUI20/30/[id number] / / [id number] Simplex P Bone Radiopaque Full Dose Sterile - [id number] [facility]:Qty[facility] JBVYVTOVZBS21/30/[id number] / / [id number]-Dqgp Implant - [id number] Implanted:Qty: 1 [facility]11/2011 [facility] Bone - Knee GR[employer] INC03/02/[id number] / / [id number]:Nex Gen Femoral HkfdmsemJgw-Xq-T-Kind Implant - [id number] Implanted:Qty: 1 on 09/11/2011 [facility]: Bone - Knee [employer]06/02/[id number] / / [id number]:Nex Gen Tibial qnqmvnispDyl-Je-I-Kind Implant - [id number] Implanted:Qty: 1 on 09/11/2011 [facility] Bone - Knee [employer] INC06/11/[id number] / / [id number]:CR ARTICULAR SURFACE REGULAR CONSTRAINTPersona Imp Knee Surf Artc R 10 8-11gh [id number] Implanted:Qty: 1 on 04/12/2020 [facility]: Bone - Knee GR[employer] [id number] / / [id number] Iol Ultrasert 11.5 - [id number] Implanted:Qty: 1 on 09/24/2018 by Cortez Green MD at [facility] Intraocular [facility]ens[facility] MIPDHRBE00/31/4721OA63G5.11.5 / [id number] / Component Persona 11 Standard Cocr Femoral Cruciate Retain - [id number] Implanted:Qty: [facility] [facility] Bone - KneeZIMMER YBDEVNSRQF66/30/[id number] / / [id number] 38mm All Poly Patellar Psn - [id number] Implanted:Qty: 1 on 04/12/2020 at [facility]: Bone - KneeZIMMER [id number] / / [id number] All Poly Patella 38mm 9.5mm Thick - [id number] Implanted:Qty: 1 on 09/11/2011 at [facility] PatellaLeft: Bone - KneeZIMMER FYVXZDYUIN97/30/[id number] / / [id number] Persona 5d G Tivanium Tibial Cemented Stem Knee Right - [id number] Implanted:Qty: 1 on 04/12/2020 at [facility]: Bone - KneeZIMMER VKLWPTWWLU60/31/[id number] / / [id number] Persona 14mm Taper 30+ Mm Stem Knee Tibia - [id number] Implanted:Qty: 1 on 04/12/2020 at [facility]: Bone - KneeZIMMER APOKPPFOQA07/15/[id number] / / [id number] Nexgen Complete Knee Taper Stem - [id number] Implanted:Qty: 1 on 09/11/2011 [facility] Bone - KneeZIMMER [id number] / / [id number] Procedures Procedure NamePriorityDate/TimeAssociated DiagnosisCommentsMRI 3D BRAIN QUANT Eqgljkt4606/13/2025 4:17 PM EDT Memory loss Cognitive impairment, mild, so stated MRI BRAIN W QUANT WO YOKFIXvtfgdo35/11/2025 4:17 PM EDT Cognitive impairment, mild, so stated BASIC METABOLIC EZJASKmxnpem12/11/2020 4:47 AM EDT LIPID PANEL, OPIWEUJBsxquml15/31/2012 11:52 AM EST Mixed hyperlipidemia from Last 3 Months or Most Recently Relevant to Health Maintenance Results * MRI 3D BRAIN QUANT (06/13/2025 4:17 PM EDT)Anatomical RegionLateralityModality Magnetic ResonanceSpecimen (Source)Anatomical Location / LateralityCollection Method / VolumeCollection TimeReceived Time06/13/2025 4:17 PM EDT Impressions 06/13/2025 6:23 PM EDT IMPRESSION: * ??No evidence of an acute intracranial process or intracranial mass. * ??Mild generalized volume loss. * ??Hippocampal volumes at the 28th percentile when compared to age matched normal controls by quantitative analysis. * ??Mild white matter disease which is nonspecific but likely reflective of chronic microvascular ischemia. * ??No evidence of parenchymal microhemorrhages by MRI. REFERENCES: White Matter Lesions: ? 0 = No lesions, including symmetrical, well-defined caps or bands ? 1 = Focal Lesions ? 2 = Beginning of [place] ? 3 = Diffuse Involvement of Entire Region Basal Ganglia Lesions: ? 0 = No Lesions 1 = 1 Focal Lesion (>5mm) 2 = >1 Focal Lesion (>5mm) ? 3 = Confluent Lesions Emmanuel Alberts, et al. The clinical use of structural MRI in Alzheimer disease. Nature Reviews Neurology 6;67 (2010). Clif et al. Validation of a fully automated 3D hippocampal segmentation method using subjects with Alzheimer's disease mild cognitive impairment, and elderly controls. Neuroimage 43;59 (2008). Evelia et al. A New Rating Scale for Age-Related White Matter Changes Applicable to MRI and CT. Stroke. 32:1318 (2001). * ??Asymmetry index defined as difference between left and right volumes divided by mean or [(L-R/Mean) x 100] (%). Age-matched reference charts measure total hippocampal volume (% of intracranial volume). See results from the analysis charts for details. Junior Java Developer: PSCB ?? Transcribe Date/Time: Jun 13 2025 ??5:52P Dictated by : CASA BOJORQUEZ MD This examination was interpreted and the report reviewed and electronically signed by: CASA BOJORQUEZ MD on Jun 13 2025 ??6:21PM ??EST Narrative 06/13/2025 6:23 PM EDT * * *Final Report* * * DATE OF EXAM: Jun 13 2025 ??4:17PM ?? VHM ?? [id number] ??- ??MRI 3D BRAIN QUANT ??/ PROCEDURE REASON: multiple diagnoses ? * * * * Physician Interpretation * * * * EXAMINATION: MRI BRAIN W QUANT WO IVCON, MRI 3D BRAIN QUANT CLINICAL HISTORY: Memory loss, cognitive impairment, mild, so stated TECHNIQUE: Axial JUSTINA FLAIR, JUSTINA T2, diffusion and susceptibility weighted imaging without contrast, using the ADNI dementia protocol and 3-D post-processing using the TerraEchos software at an independent workstation with concurrent physician supervision and images were created, reviewed and archived. ??MQ: ??MRBDemWO_1 COMPARISON: MRI performed 05/07/2020 RESULT: QUALITATIVE: Acute Intracranial Process: None. Chronic Intracranial Process: Scattered patchy areas of increased T2 and FLAIR signal ??are present in the supratentorial white matter which is a nonspecific finding but likely represents mild chronic microvascular ischemia. Number of chronic lacunar infarcts: None Location of chronic lacunar infarcts: Not applicable Age related white matter changes (ARWMC) rating: White matter lesions: 1 Basal ganglia lesions: 0 Prior intracranial hemorrhage: ? Parenchymal microhemorrhages: 0 Other (siderosis/macrohemorrhages (>10mm): Not Applicable Amyloid Related Imaging Abnormalities: ? ARIA-E: N/A ? ARIA-H Microhemorrhage: N/A ? ARIA-H Siderosis: N/A Qualitative brain and hippocampal volume loss for age: ? Cortex: Mild and symmetric ? White Matter: Mild and cement ? Hippocampi: Mild ??and Symmetric Ventricles: Commensurate with volume loss. Brain Parenchymal Signal and Morphology: The brain parenchyma is otherwise within normal limits of signal and morphology. ??There is no evidence of an intracranial mass or extraaxial fluid collection. Other Significant Findings: There are bilateral scleral araceli. ?? Bilateral pseudophakia. ??Minimal fluid in the mastoid bilaterally. QUANTITATIVE: Exam Quality: Good for volumetric analysis. Segmentation: Accurate segmentation by visual inspection Quantitative Data: Total Hippocampal Volume: ??Percentile for Age: 28 ?Asymmetry Index: 3 Inferior Lateral Vent Volume: ??Percentile for age: 76 ?Asymmetry Index: 15.5 Superior Lateral Vent Volume: ??Percentile for age: 73 ?Asymmetry Index: -0.77 Temporal Lobe Cortex Volume: ??Temporal Lobe Percentile for Age: 1.18 ?Temporal Lobe Asymmetry Index: -8.88 Frontal Lobe Cortex Volume: ??Frontal Lobe Percentile for Age: 19 ?Frontal Lobe Asymmetry Index: -8.88 Parietal Lobe Cortex Volume: ??Parietal Lobe Percentile for Age:36 Occipital Lobe Cortex Volume: ??Occipital Lobe Percentile for Age: 43 Whole Brain Volume ?Brain Percentile for Age: 21 Concordance between qualitative and quantitative hippocampal volume assessment: Concordant Change in brain volumes: See below See below for comparison of brain volumes in relation to the prior volumetric study: ??05/07/2020. The prior study was reprocessed with the current algorithm version for adequate comparison. ??Please note that small variations may be due to standard measurement error. ? Brain Volume: ?Current percentile: 21 ?Previous percentile: 35 ? Hippocampal Volume: ?Current percentile: 28 ?Previous percentile: 37 ? Superior Lateral Ventricle Volume Change: ?Current percentile: 73 ?Previous percentile: 70 ? Inferior Lateral Ventricle Volume Change: ?Current percentile: 76 ?Previous percentile: 72 ?Mean hippocampal volume loss among normal elderly: 0.7% per year, (-0.3 to 1.7; ??Clif 2008; also Emmanuel 2010). Procedure Note Provider, [facility] [place] - 06/13/2025 * * *Final Report* * * DATE OF EXAM: Jun 13 2025 4:17PM [facility] [id number] - MRI 3D BRAIN QUANT / PROCEDURE REASON: multiple diagnoses * * * * Physician Interpretation * * * * EXAMINATION: MRI BRAIN W QUANT WO IVCON, MRI 3D BRAIN QUANT CLINICAL HISTORY: Memory loss, cognitive impairment, mild, so stated TECHNIQUE: Axial JUSTINA FLAIR, JUSTINA T2, diffusion and susceptibility weighted imaging without contrast, using the ADNI dementia protocol and 3-D post-processing using the TerraEchos software at an independent workstation with concurrent physician supervision and images were created, reviewed and archived. MQ: MRBDemWO_1 COMPARISON: MRI performed 05/07/2020 RESULT: QUALITATIVE: Acute Intracranial Process: None. Chronic Intracranial Process: Scattered patchy areas of increased T2 and FLAIR signal are present in the supratentorial white matter which is a nonspecific finding but likely represents mild chronic microvascular ischemia. Number of chronic lacunar infarcts: None Location of chronic lacunar infarcts: Not applicable Age related white matter changes (ARWMC) rating: White matter lesions: 1 Basal ganglia lesions: 0 Prior intracranial hemorrhage: Parenchymal microhemorrhages: 0 Other (siderosis/macrohemorrhages (>10mm): Not Applicable Amyloid Related Imaging Abnormalities: ARIA-E: N/A ARIA-H Microhemorrhage: N/A ARIA-H Siderosis: N/A Qualitative brain and hippocampal volume loss for age: Cortex: Mild and symmetric White Matter: Mild and cement Hippocampi: Mild and Symmetric Ventricles: Commensurate with volume loss. Brain Parenchymal Signal and Morphology: The brain parenchyma is otherwise within normal limits of signal and morphology. There is no evidence of an intracranial mass or extraaxial fluid collection. Other Significant Findings: There are bilateral scleral araceli. Bilateral pseudophakia. Minimal fluid in the mastoid bilaterally. QUANTITATIVE: Exam Quality: Good for volumetric analysis. Segmentation: Accurate segmentation by visual inspection Quantitative Data: Total Hippocampal Volume: Percentile for Age: 28 Asymmetry Index: 3 Inferior Lateral Vent Volume: Percentile for age: 76 Asymmetry Index: 15.5 Superior Lateral Vent Volume: Percentile for age: 73 Asymmetry Index: -0.77 Temporal Lobe Cortex Volume: Temporal Lobe Percentile for Age: 1.18 Temporal Lobe Asymmetry Index: -8.88 Frontal Lobe Cortex Volume: Frontal Lobe Percentile for Age: 19 Frontal Lobe Asymmetry Index: -8.88 Parietal Lobe Cortex Volume: Parietal Lobe Percentile for Age:36 Occipital Lobe Cortex Volume: Occipital Lobe Percentile for Age: 43 Whole Brain Volume Brain Percentile for Age: 21 Concordance between qualitative and quantitative hippocampal volume assessment: Concordant Change in brain volumes: See below See below for comparison of brain volumes in relation to the prior volumetric study: 05/07/2020. The prior study was reprocessed with the current algorithm version for adequate comparison. Please note that small variations may be due to standard measurement error. Brain Volume: Current percentile: 21 Previous percentile: 35 Hippocampal Volume: Current percentile: 28 Previous percentile: 37 Superior Lateral Ventricle Volume Change: Current percentile: 73 Previous percentile: 70 Inferior Lateral Ventricle Volume Change: Current percentile: 76 Previous percentile: 72 Mean hippocampal volume loss among normal elderly: 0.7% per year, (-0.3 to 1.7; Clif 2008; also Emmanuel 2010). IMPRESSION IMPRESSION: * No evidence of an acute intracranial process or intracranial mass. * Mild generalized volume loss. * Hippocampal volumes at the 28th percentile when compared to age matched normal controls by quantitative analysis. * Mild white matter disease which is nonspecific but likely reflective of chronic microvascular ischemia. * No evidence of parenchymal microhemorrhages by MRI. REFERENCES: White Matter Lesions: 0 = No lesions, including symmetrical, well-defined caps or bands 1 = Focal Lesions 2 = Beginning of [place] 3 = Diffuse Involvement of Entire Region Basal Ganglia Lesions: 0 = No Lesions 1 = 1 Focal Lesion (>5mm) 2 = >1 Focal Lesion (>5mm) 3 = Confluent Lesions Emmanuel Alberts, et al. The clinical use of structural MRI in Alzheimer disease. Nature Reviews Neurology 6;67 (2010). Clif et al. Validation of a fully automated 3D hippocampal segmentation method using subjects with Alzheimer's disease mild cognitive impairment, and elderly controls. Neuroimage 43;59 (2008). Wahlund et al. A New Rating Scale for Age-Related White Matter Changes Applicable to MRI and CT. Stroke. 32:1318 (2001). * Asymmetry index defined as difference between left and right volumes divided by mean or [(L-R/Mean) x 100] (%). Age-matched reference charts measure total hippocampal volume (% of intracranial volume). See results from the analysis charts for details. Junior Java Developer: ISADORA Transcribe Date/Time: Jun 13 2025 5:52P Dictated by : CASA BOJORQUEZ MD This examination was interpreted and the report reviewed and electronically signed by: CASA BOJORQUEZ MD on Jun 13 2025 6:21PM EST Authorizing ProviderResult TypeResult StatusNorman T Sese MDMRI-PAMAFinal Result * MRI BRAIN W QUANT WO IVCON (06/13/2025 4:17 PM EDT)Anatomical RegionLaterality ModalityHeadMagnetic ResonanceSpecimen (Source)Anatomical Location / LateralityCollection Method / VolumeCollection TimeReceived Time06/13/2025 4:17 PM EDT Impressions 06/13/2025 6:23 PM EDT IMPRESSION: * ??No evidence of an acute intracranial process or intracranial mass. * ??Mild generalized volume loss. * ??Hippocampal volumes at the 28th percentile when compared to age matched normal controls by quantitative analysis. * ??Mild white matter disease which is nonspecific but likely reflective of chronic microvascular ischemia. * ??No evidence of parenchymal microhemorrhages by MRI. REFERENCES: White Matter Lesions: ? 0 = No lesions, including symmetrical, well-defined caps or bands ? 1 = Focal Lesions ? 2 = Beginning of [place] ? 3 = Diffuse Involvement of Entire Region Basal Ganglia Lesions: ? 0 = No Lesions 1 = 1 Focal Lesion (>5mm) 2 = >1 Focal Lesion (>5mm) ? 3 = Confluent Lesions Emmanuel Alberts, et al. The clinical use of structural MRI in Alzheimer disease. Nature Reviews Neurology 6;67 (2010). Clif et al. Validation of a fully automated 3D hippocampal segmentation method using subjects with Alzheimer's disease mild cognitive impairment, and elderly controls. Neuroimage 43;59 (2008). Wahlund et al. A New Rating Scale for Age-Related White Matter Changes Applicable to MRI and CT. Stroke. 32:1318 (2001). * ??Asymmetry index defined as difference between left and right volumes divided by mean or [(L-R/Mean) x 100] (%). Age-matched reference charts measure total hippocampal volume (% of intracranial volume). See results from the analysis charts for details. Junior Java Developer: ISADORA ?? Transcribe Date/Time: Jun 13 2025 ??5:52P Dictated by : CASA BOJORQUEZ MD This examination was interpreted and the report reviewed and electronically signed by: CASA BOJORQUEZ MD on Jun 13 2025 ??6:21PM ??EST Narrative 06/13/2025 6:23 PM EDT * * *Final Report* * * DATE OF EXAM: Jun 13 2025 ??4:17PM ?? [facility] ?? 3015 ??- ??MRI BRAIN W QUANT WO IVCON ??/ PROCEDURE REASON: Cognitive impairment, mild, so stated ? * * * * Physician Interpretation * * * * EXAMINATION: MRI BRAIN W QUANT WO IVCON, MRI 3D BRAIN QUANT CLINICAL HISTORY: Memory loss, cognitive impairment, mild, so stated TECHNIQUE: Axial JUSTINA FLAIR, JUSTINA T2, diffusion and susceptibility weighted imaging without contrast, using the ADNI dementia protocol and 3-D post-processing using the [employer] software at an independent workstation with concurrent physician supervision and images were created, reviewed and archived. ??MQ: ??[id number]_1 COMPARISON: MRI performed 05/07/2020 RESULT: QUALITATIVE: Acute Intracranial Process: None. Chronic Intracranial Process: Scattered patchy areas of increased T2 and FLAIR signal ??are present in the supratentorial white matter which is a nonspecific finding but likely represents mild chronic microvascular ischemia. Number of chronic lacunar infarcts: None Location of chronic lacunar infarcts: Not applicable Age related white matter changes (ARWMC) rating: White matter lesions: 1 Basal ganglia lesions: 0 Prior intracranial hemorrhage: ? Parenchymal microhemorrhages: 0 Other (siderosis/macrohemorrhages (>10mm): Not Applicable Amyloid Related Imaging Abnormalities: ? ARIA-E: N/A ? ARIA-H Microhemorrhage: N/A ? ARIA-H Siderosis: N/A Qualitative brain and hippocampal volume loss for age: ? Cortex: Mild and symmetric ? White Matter: Mild and cement ? Hippocampi: Mild ??and Symmetric Ventricles: Commensurate with volume loss. Brain Parenchymal Signal and Morphology: The brain parenchyma is otherwise within normal limits of signal and morphology. ??There is no evidence of an intracranial mass or extraaxial fluid collection. Other Significant Findings: There are bilateral scleral araceli. ?? Bilateral pseudophakia. ??Minimal fluid in the mastoid bilaterally. QUANTITATIVE: Exam Quality: Good for volumetric analysis. Segmentation: Accurate segmentation by visual inspection Quantitative Data: Total Hippocampal Volume: ??Percentile for Age: 28 ?Asymmetry Index: 3 Inferior Lateral Vent Volume: ??Percentile for age: 76 ?Asymmetry Index: 15.5 Superior Lateral Vent Volume: ??Percentile for age: 73 ?Asymmetry Index: -0.77 Temporal Lobe Cortex Volume: ??Temporal Lobe Percentile for Age: 1.18 ?Temporal Lobe Asymmetry Index: -8.88 Frontal Lobe Cortex Volume: ??Frontal Lobe Percentile for Age: 19 ?Frontal Lobe Asymmetry Index: -8.88 Parietal Lobe Cortex Volume: ??Parietal Lobe Percentile for Age:36 Occipital Lobe Cortex Volume: ??Occipital Lobe Percentile for Age: 43 Whole Brain Volume ?Brain Percentile for Age: 21 Concordance between qualitative and quantitative hippocampal volume assessment: Concordant Change in brain volumes: See below See below for comparison of brain volumes in relation to the prior volumetric study: ??05/07/2020. The prior study was reprocessed with the current algorithm version for adequate comparison. ??Please note that small variations may be due to standard measurement error. ? Brain Volume: ?Current percentile: 21 ?Previous percentile: 35 ? Hippocampal Volume: ?Current percentile: 28 ?Previous percentile: 37 ? Superior Lateral Ventricle Volume Change: ?Current percentile: 73 ?Previous percentile: 70 ? Inferior Lateral Ventricle Volume Change: ?Current percentile: 76 ?Previous percentile: 72 ?Mean hippocampal volume loss among normal elderly: 0.7% per year, (-0.3 to 1.7; ??Clif 2008; also Emmanuel 2010). Procedure Note Provider, [facility] - 06/13/2025 * * *Final Report* * * DATE OF EXAM: Jun 13 2025 4:17PM [facility] 3015 - MRI BRAIN W QUANT WO IVCON / PROCEDURE REASON: Cognitive impairment, mild, so stated * * * * Physician Interpretation * * * * EXAMINATION: MRI BRAIN W QUANT WO IVCON, MRI 3D BRAIN QUANT CLINICAL HISTORY: Memory loss, cognitive impairment, mild, so stated TECHNIQUE: Axial JUSTINA FLAIR, JUSTINA T2, diffusion and susceptibility weighted imaging without contrast, using the ADNI dementia protocol and 3-D post-processing using the [employer] software at an independent workstation with concurrent physician supervision and images were created, reviewed and archived. MQ: [id number]_1 COMPARISON: MRI performed 05/07/2020 RESULT: QUALITATIVE: Acute Intracranial Process: None. Chronic Intracranial Process: Scattered patchy areas of increased T2 and FLAIR signal are present in the supratentorial white matter which is a nonspecific finding but likely represents mild chronic microvascular ischemia. Number of chronic lacunar infarcts: None Location of chronic lacunar infarcts: Not applicable Age related white matter changes (ARWMC) rating: White matter lesions: 1 Basal ganglia lesions: 0 Prior intracranial hemorrhage: Parenchymal microhemorrhages: 0 Other (siderosis/macrohemorrhages (>10mm): Not Applicable Amyloid Related Imaging Abnormalities: ARIA-E: N/A ARIA-H Microhemorrhage: N/A ARIA-H Siderosis: N/A Qualitative brain and hippocampal volume loss for age: Cortex: Mild and symmetric White Matter: Mild and cement Hippocampi: Mild and Symmetric Ventricles: Commensurate with volume loss. Brain Parenchymal Signal and Morphology: The brain parenchyma is otherwise within normal limits of signal and morphology. There is no evidence of an intracranial mass or extraaxial fluid collection. Other Significant Findings: There are bilateral scleral araceli. Bilateral pseudophakia. Minimal fluid in the mastoid bilaterally. QUANTITATIVE: Exam Quality: Good for volumetric analysis. Segmentation: Accurate segmentation by visual inspection Quantitative Data: Total Hippocampal Volume: Percentile for Age: 28 Asymmetry Index: 3 Inferior Lateral Vent Volume: Percentile for age: 76 Asymmetry Index: 15.5 Superior Lateral Vent Volume: Percentile for age: 73 Asymmetry Index: -0.77 Temporal Lobe Cortex Volume: Temporal Lobe Percentile for Age: 1.18 Temporal Lobe Asymmetry Index: -8.88 Frontal Lobe Cortex Volume: Frontal Lobe Percentile for Age: 19 Frontal Lobe Asymmetry Index: -8.88 Parietal Lobe Cortex Volume: Parietal Lobe Percentile for Age:36 Occipital Lobe Cortex Volume: Occipital Lobe Percentile for Age: 43 Whole Brain Volume Brain Percentile for Age: 21 Concordance between qualitative and quantitative hippocampal volume assessment: Concordant Change in brain volumes: See below See below for comparison of brain volumes in relation to the prior volumetric study: 05/07/2020. The prior study was reprocessed with the current algorithm version for adequate comparison. Please note that small variations may be due to standard measurement error. Brain Volume: Current percentile: 21 Previous percentile: 35 Hippocampal Volume: Current percentile: 28 Previous percentile: 37 Superior Lateral Ventricle Volume Change: Current percentile: 73 Previous percentile: 70 Inferior Lateral Ventricle Volume Change: Current percentile: 76 Previous percentile: 72 Mean hippocampal volume loss among normal elderly: 0.7% per year, (-0.3 to 1.7; Clif 2008; also Emmanuel 2010). IMPRESSION IMPRESSION: * No evidence of an acute intracranial process or intracranial mass. * Mild generalized volume loss. * Hippocampal volumes at the 28th percentile when compared to age matched normal controls by quantitative analysis. * Mild white matter disease which is nonspecific but likely reflective of chronic microvascular ischemia. * No evidence of parenchymal microhemorrhages by MRI. REFERENCES: White Matter Lesions: 0 = No lesions, including symmetrical, well-defined caps or bands 1 = Focal Lesions 2 = Beginning of [place] 3 = Diffuse Involvement of Entire Region Basal Ganglia Lesions: 0 = No Lesions 1 = 1 Focal Lesion (>5mm) 2 = >1 Focal Lesion (>5mm) 3 = Confluent Lesions Emmanuel Alberts, et al. The clinical use of structural MRI in Alzheimer disease. Nature Reviews Neurology 6;67 (2010). Clif et al. Validation of a fully automated 3D hippocampal segmentation method using subjects with Alzheimer's disease mild cognitive impairment, and elderly controls. Neuroimage 43;59 (2008). Wahlund et al. A New Rating Scale for Age-Related White Matter Changes Applicable to MRI and CT. Stroke. 32:1318 (2001). * Asymmetry index defined as difference between left and right volumes divided by mean or [(L-R/Mean) x 100] (%). Age-matched reference charts measure total hippocampal volume (% of intracranial volume). See results from the analysis charts for details. Junior Java Developer: PSCB Transcribe Date/Time: Jun 13 2025 5:52P Dictated by : CASA BOJORQUEZ MD This examination was interpreted and the report reviewed and electronically signed by: CASA BOJORQUEZ MD on Jun 13 2025 6:21PM EST Authorizing ProviderResult TypeResult StatusNorman Kristen Bush MDMRI-PAMAFinal Result * (ABNORMAL) BASIC METABOLIC PANEL (AK,AV,EU,FV,HL,DAMEON,MM,SP) (04/13/2020 4:47 AM EDT)ComponentValueRef RangeTest MethodAnalysis TimePerformed AtPathologist ZogrmuztlTnzzhup889(H)74 - 99 mg/dL04/13/2020 5:53 AM [facility] 169 - 24 mg/dL04/13/2020 5:53 AM [facility] HealthCreatinine1.080.73 - 1.22 mg/dL04/13/2020 5:[address] [facility] 144 mmol/L 04/13/2020 5:53 AM [facility]Potassium4.03.7 - 5.1 mmol/L04/13/2020 5:53 AM [facility] HealthAbmhpvyzUiosofrh13557 - 105 mmol/L04/13/2020 5:53 AM EDT [facility] - 30 mmol/L04/13/2020 5:53 AM [facility] Anion Lvz948 - 18 mmol/L04/13/2020 5:53 AM [facility] HealthCalcium8.4(L) 8.5 - 10.2 mg/dL04/13/2020 5:53 AM [facility]theGFR- >60>6008 5:53 AM [facility]theGFR-All Other Races>60>60 . 04/13/2020 5:53 AM [facility] HealthComment: eGFR (Estimated GFR) Units of measure: mL/min/1.73 [...] eGFR may not accurately reflect actual GFR. Specimen (Source)Anatomical Location / LateralityCollection Method / Volume Collection TimeReceived TimeBlood specimen (specimen)BLOOD SPECIMEN / Unknown 04/13/2020 4:47 AM EDT04/13/2020 4:48 AM EDT Narrative Authorizing ProviderResult TypeResult StatusTreleopoldo Soto MDLABORATORY REGIONALFinal ResultPerforming OrganizationAddressCity/State/ZIP CodePhone Number [address] [address] * (ABNORMAL) LIPID PANEL BASIC (10/03/2011 11:52 AM EST)ComponentValueRef Range Test MethodAnalysis TimePerformed AtPathologist ExrhvfstnBxcjabztcjzp527(H)30 - 149 mg/dLSELECT MEDICAL [facility] LABORATORYCholesterol, Jtrtt843025 - 199 mg/dLSELECT MEDICAL SPECIAL[facility] LABORATORYHDL Qwafopxzmzq98(L)>45 mg/dLSELECT [facility]ICAL [facility] LABORATORYVLDL Qdtnrouevky207 - 40 mg/dLSELECT [facility]ICAL [facility] LABORATORYLDL Cholesterol, Lvwsufxnkm8151 - 129 mg/dLSELECT MEDICAL SPECIALTY [facility] LABORATORYFasting Drkc73cryYQQOWSGUDTOLEDO HOSPITAL LABORATORYTC:HDL Ratio4.29 1.00 - 5.00[facility] LABORATORYLDL:HDL Ratio2.170.50 - 3.55 [facility] LABORATORYNon HDL Qnywdiwepai71844 - 159 mg/dLSELECT MEDICAL SPECIALTY [facility] LABORATORYSpecimen (Source)Anatomical Location / Laterality Collection Method / VolumeCollection TimeReceived TimeBlood specimen (specimen)BLOOD SPECIMEN / Faqlroo8010/03/2011 11:52 AM EST10/03/2011 11:54 AM EST Narrative Authorizing ProviderResult TypeResult StatusDamukul DomingoABORATORYFinal Result Performing OrganizationAddressCity/State/ZIP CodePhone Number [facility] [address] [place] [address] from Last 3 Months or Most Recently Relevant to Health Maintenance Insurance * Guarantor: Tom Dye AAccount TypeRelation to PatientDate of BirthPhone Billing AddressPersonal/SezxrrYdiy30/21/1956 [address] [place] [address] * Guarantor: Tom Dye TypeRelation to PatientDate of BirthPhone Billing AonttgtUuozcoXqyj86/21/1956 [address] [place] [address] * Guarantor: Tom Dye TypeRelation to PatientDate of BirthPhone Billing UauavvqXlqotqIpck69/21/1956 [address] [place] [address] [address] [place] [address] * Guarantor: Tom Dye TypeRelation to PatientDate of BirthPhone Billing AddressSelf [id number] 1955 [address] [facility] [place] [address] Advance Directives TypeDate RecordedPatient RepresentativeExplanationAdvance Directive(s)04/12/2020 7:26 AM Care Teams Team MemberRelationshipSpecialtyStart DateEnd Date Tom Pires [address] [place] [address] PCP - General12/12/00 Tom Gottlieb MD [address] [place] [address] Primary Staff PhysicianCardiology11/19/18
--- OUTSIDE RECORDS SUMMARY | 2025-07-03 12:47 | XMS_ITS | Clinical Summary ---
Author Organization [facility] Address [address] [place] [address] Phone Care Team Providers Care Outboard Motor Tester Name Role Phone Leeann Marshall RISK ADJUSTMENT SPECIALIST-WIRE WINDING MACHINE TENDER Primary Care Provider [phone] Mac Riley Rojo DO Unavailable Allergies No known active allergies Medications MedicationSigDispense QuantityRefillsLast FilledStart DateEnd DateStatus DULoxetine (Cymbalta) [address] capsule Take 1 capsule (60 mg) by mouth once daily. Take with 30mg doseActive LORazepam (Ativan) 1 mg tablet Take 0.5 tablets (0.5 mg) by mouth. Take 1 tab every morning and 1/2 tablet every eveningActive melatonin 3 mg capsule Take 2 capsules by mouth once daily at bedtime.Active omega 6-ozt-jfj-fish oil (Fish OiL) 1,000 mg (120 mg-180 mg) capsule Take 1 capsule (1,000 mg) by mouth once daily.Active aspirin 81 mg EC tablet Take 1 tablet (81 mg) by mouth once daily.Active empagliflozin (Jardiance) 25 mg Take 1 tablet (25 mg) by mouth once daily.Active insulin lispro protamin-lispro (HumaLOG Mix 50-50 KwikPen) 100 unit/mL (50-50) injection Inject under the skin 2 times a day with meals. Take as directed per insulin instructions. Per sliding scaleActive nitroglycerin (Nitrostat) 0.4 mg SL tablet Indications:CAD, multiple vesselPlace 1 tablet (0.4 mg) under the tongue every 5 minutes if needed for chest pain. May repeat dose every 5 minutes for up to 3 doses total. 100 tablet 1102/14/2024Active Toujeo Max U-300 SoloStar 300 unit/mL (3 mL) injection INJECT 66 UNITS UNDER THE SKIN IN THE MORNING.01/01/2024ctive atorvastatin (Lipitor) 80 mg tablet Indications:Hyperlipidemia, unspecified hyperlipidemia typeTAKE 1 TABLET BY MOUTH ONCE DAILY. 90 tablet ctive semaglutide (Ozempic) 2 mg/dose (8 mg/3 mL) pen injector Inject 2 mg under the skin every 7 days.Active busPIRone (Buspar) 10 mg tablet Take 2 tablets (20 mg) by mouth 2 times a day.Active traZODone (Desyrel) 100 mg tablet Take 1 tablet (100 mg) by mouth once daily at bedtime.Active mirtazapine (Remeron) 15 mg tablet Take 1 tablet (15 mg) by mouth once daily at bedtime.Active risperiDONE (RisperDAL M-TAB) 1 mg disintegrating tablet Dissolve 1 tablet (1 mg) in the mouth 2 times a day.Active divalproex sprinkle (Depakote Sprinkle) [address] capsule Take 2 capsules (250 mg) by mouth 2 times a day.Active potassium chloride CR (Klor-Con) 10 mEq ER tablet Indications:Edema, unspecified typeTake 1 tablet (10 mEq) by mouth once daily. Do not crush, chew, or split. 90 tablet 415Active spironolactone (Aldactone) 25 mg tablet Indications:Primary hypertensionTAKE 1/2 TABLET BY MOUTH DAILY FOR 30 DAYS 45 tablet 5Active clopidogrel (Plavix) 75 mg tablet Indications:CAD, multiple vessel,Obesity (BMI 30-39.9),History of PTCATAKE 1 TABLET BY MOUTH ONCE DAILY. 90 tablet 5Active carvedilol (Coreg) 12.5 mg tablet Indications:Ischemic cardiomyopathy,Primary hypertensionTake 1 tablet (12.5 mg) by mouth 2 times a day. 180 tablet 506Active losartan (Cozaar) 25 mg tablet Indications:Hypertension, unspecified typeTake 1 tablet (25 mg) by mouth once daily. 90 tablet 506Active Active Problems ProblemNoted DateDiagnosed DateShortness of visink7203/19/2025Never smoked padgdknbkq42/13/2024[place] (myocardial infarction)01/22/2024History of PTCA 01/22/20242895Hcftfxk92/21/2024Ischemic hdeuqwqzlnyibd43/14/2024 Assessment & Plan (10/22/2023 4:13 PM EST): October 2023 TTE LVEF 55% Inferior hypokinesis Left atrium mild MR trace Major psychotic depression, unnlatpjq19/14/2024Moderate episode of recurrent major depressive tlticljw03/14/2024SHD (arteriosclerotic heart disease) 08/30/2023 Assessment & Plan (10/22/2023 4:12 PM EST): 2009 CABG x5 Oct 06, 2023: In-house inferior STEMI while in inpatient rehab following L4-L5 laminectomy. Managed emergently by Dr. Watts. Proximal, mid/distal and distal PDA of RCA PCI/RHINA x 3 Ramus PCI/RHINA Y graft to PITTS-diagonal - LAD: patent GRISELDA-OM patent SVG-RCA occluded SVG-circumflex/? OM occluded Yqutqbcxgm01/28/2023iabetes ginetuxp41/28/2023 Assessment & Plan (10/22/2023 4:14 PM EST): On statin/ARB Reports most recent hemoglobin A1c 8.0 Esophageal azmhlg9808/30/2023History of coronary artery bypass graft08/30/2023 Yvzvsjqqwuugar33/28/2023 Assessment & Plan (10/22/2023 4:13 PM EST): Tolerating high intensity statin Nuavlugiwznp27/28/2023 Assessment & Plan (10/22/2023 4:20 PM EST): Slightly elevated in office. Report home health care nurse - systolic blood pressure 149 BMI 35.0-35.9,adult08/30/2023 Assessment & Plan (10/22/2023 4:14 PM EST): Reviewed the merits of healthy lifestyle choices on overall cardiovascular health. Encounters DateTypeDepartmentCare CiiiAdgjjakcpot65/20/2025Refill [address] [place] [id number] Riley Watts DO Hypertension, unspecified typefrom Last 3 Months Immunizations ImmunizationAdministration DatesNext DuePneumococcal polysaccharide vaccine, 23- valent, age 2 years and older (PNEUMOVAX 23)09/14/2011Tdap vaccine, age 7 year and older (BOOSTRIX, ADACEL)12/31/2024 Family History Medical HistoryRelationNameCommentsCABGFatherHeart failureFatherHypertension MotherStrokeMotherRelationNameStatusCommentsFatherMother Social History Tobacco UseTypesPacks/DayYears UsedDateSmoking Tobacco: NeverSmokeless Tobacco: Never Tobacco Cessation:Counseling Given: Not Answered Alcohol UseStandard Drinks/WeekCommentsNever0 (1 standard drink = 0.6 oz pure alcohol)Sex and Gender InformationValueDate RecordedSex Assigned at BirthNot on fileLegal QujAdaj43/26/2022 4:36 PM ESTGender IdentityNot on fileSexual OrientationNot on file Last Filed Vital Signs Vital SignReadingTime TakenCommentsBlood Idyqwidd213/ 11:41 AM EDT Rtjuc9269/17/2025 11:41 AM EDSIworhsfyrem48.9 ??C (98.4 ??F)07/21/2023 2:56 PM ESTRespiratory Zmic013509/20/2022 2:56 PM ESTOxygen Odzetiqakd89%07/21/2023 2:56 PM ESTInhaled Oxygen Concentration--Iorbjt938 kg (253 lb)03/19/2025 11:41 AM EDT Jfpibu988.3 cm (5' 11 )03/19/2025 11:41 AM EDTBody Mass Index35.29003/19/2025 11:41 AM EDT Plan of Treatment DateTypeDepartmentCare Team (Latest Contact Info)Gqfdraclmii82/28/2026 11:20 AM EDTOffice Visit [address] [place] [phone] Riley Watts DO [address] [place] [address] [address] [address] [place] [address] Health MaintenanceDue DateLast DoneCommentsCT Nffumyifhmpy59/21/1958Colonoscopy 1957Colorectal Cancer Fnqmdesci61/21/1958Creatinine Level1957FIT-DNA (Cologuard)1957FIT1957Lipid Panel1957Medicare Annual Wellness Visit (AWV)1957Potassium Level1957 8490Zpinnacruesjd21/21/1958MMR Vaccines (1 of 1 - Standard series)1958Diabetes: Retinopathy Screening 1967Hepatitis C Zfshqxurg29/21/1976PSA Prostate Cancer Fvplyrpev88/21/2008 RSV High Risk: (Elderly (60+) or Population) (1 - Risk 50-74 years 1- dose series)2007Zoster Vaccines (1 of 2)2007Pneumococcal Vaccine (2 of 2 - PCV)Diabetes: Hemoglobin A1C/ Diabetes: Urine Protein Ansxoxire30/04/20231086Iztkrnxwnpasgs65/03/2025 10/06/2023, 01/25/2023, 01/25/2023Influenza Vaccine (#1)2025OVID-19 Vaccine (1 - season)2025DTaP/Tdap/Td Vaccines (2 - Td or Tdap) HIB VaccinesAged OutNo longer eligible based on patient's age to complete this topicHPV VaccinesAged OutNo longer eligible based on patient's age to complete this topicHepatitis A VaccinesAged OutNo longer eligible based on patient's age to complete this topicHepatitis B VaccinesAged OutNo longer eligible based on patient's age to complete this topicIPV Vaccines Aged OutNo longer eligible based on patient's age to complete this topic Meningococcal VaccineAged OutNo longer eligible based on patient's age to complete this topicRotavirus VaccinesAged OutNo longer eligible based on patient's age to complete this topic Procedures Procedure NamePriorityDate/TimeAssociated DiagnosisCommentsECHOCARDIOGRAM 10/06/2023 from Last 3 Months or Most Recently Relevant to Health Maintenance Results * ECHOCARDIOGRAM (10/06/2023) Narrative 10/06/2023 Ordered by an unspecified provider. Authorizing ProviderResult TypeResult StatusGeneric Provider ScanningCV ECHO PROCEDURESFinal Result from Last 3 Months or Most Recently Relevant to Health Maintenance Insurance * Guarantor: Rigo Dye TypeRelation to PatientDate of BirthPhoneBiljon [facility] AddressPersonal/OhdmddFlnw42/21/1956 [address] [place] [address] * Guarantor: Rigo Dye TypeRelation to PatientDate of BirthPhoneBiljon [facility] AddressPersonal/DmayggZpfs50/21/1956 [address] [place] [address] Care Teams Team MemberRelationshipSpecialtyStart DateEnd Date Leeann Marshall, RISK ADJUSTMENT SPECIALIST-WIRE WINDING MACHINE TENDER [address] [facility] [address] [place] [address] PCP - GeneralInternal Zwauvmzy35/13/24 Riley Watts DO [address] [facility] [address], [place] [phone] Consulting QgtmlmcsnZusyykadle94/13/24
--- OUTSIDE RECORDS SUMMARY | 2025-07-03 12:52 | XMS_ITS | CCD ---
Author Organization [facility] Care Team Providers Care Director Of Enterprise Strategy Name Role Phone CHAN ROMAN Unavailable Unavailable FENMEÑO, CHAN E Unavailable Unavailable NOT SPECIFIED, Unavailable Unavailable FENCHAN WILDER Unavailable Unavailable NOT SPECIFIED, Unavailable Unavailable KARRI BARAKAT Unavailable Unavailable NO, PHYSICIAN Unavailable Unavailable MELODIE [...] Gray Admitting Unavailable Sami Brunson Consulting Unavailable SIVA, DR SANTOS Primary Care Unavailable BENEDICT, DR SOSA Attending Unavailable BENEDICT, DR SOSA [...] Unavailable YUHAS, DR SANTOS Primary Care Unavailable MILLS, DR LULA Hall Consulting Unavailable GAVIN, DR CHAN Gray Consulting Unavailable GAVIN, DR CHAN Gray Attending Unavailable GAVIN, DR CHAN Gray Admitting Unavailable YUHAS, DR SANTOS Primary Care Unavailable Alkas, DO Santos Primary Care Provider MD Lula Del Rosario Attending Provider [phone] Lula Del Rosario Unavailable No, Physician Primary Care Provider UnavailETTA Holland Attending Unavailslime CHRISTINE, PHYSICIAN Primary Care Unavailable ETTA OAKES Referring UnavailETTA Holland Admitting Unavailslime CHRISTINE, PHYSICIAN Primary Care Unavailable Tom Paniagua Unavailable Unavailable Unavailable Dr. Tom Paniagua Primary Care Unavaila domingo Tovar, Dr. Stone Referring Unavaila domingo Tovar, Dr. 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 OF SOCIOLOGY, [place] Primary Care Provider [phone] Tom Paniagua DO Primary Care Provider [phone] Liza TECHNOLOGY APPLICATIONS TEACHER-FOUNDRY PATTERNMAKER Veronica Reza Primary Care Provider Castillo TECHNOLOGY APPLICATIONS TEACHER-PROFESSOR OF SOCIOLOGY, [place] Primary Care Provider [phone] Vincent Oliveira Attending Unavailab Vincent Kearns Admitting Unavailab Tom Woo Primary Care Unavailable SHOBHA DELONG Referring Unavailable CASTILLO, LEEANN Primary Care Unavailable ALEA MCKENZIE Attending Unavailable CASTILLO, LEEANN Referring Unavailable CASTILLO, LEEANN Primary Care Unavailable MARIANNA IBRAHIM, MOHAMAD H Attending Unavailable CASTILLO, LEEANN Referring Unavailable CASTILLO, LEEANN Primary Care Unavailable SHOBHA DELONG Attending Unavailable CASTILLO, LEEANN Referring Unavailable CASTILLO, LEEANN Primary Care Unavailable CASTILLO, LEEANN Primary Care Unavailable JOSE GOSS Attending Unavailable Castillo TECHNOLOGY APPLICATIONS TEACHER-[facility], [facility] Primary Care Provider [phone] Gita Watts DO Unavailable GITA WATTS Attending Unavailable GITA WATTS Referring Unavailable CASTILLO, LEEANN M Primary Care Unavailable GITA WATTS Attending Unavailable GITA WATTS Referring Unavailable [facility], LEEANN M Primary Care Unavailable EL CARLOS, MOHAMAD H Attending Unavailable CASTILLO, LEEANN Referring Unavailable CASTILLO, LEEANN Primary Care Unavailable EL CARLOS, MOHAMAD H Attending Unavailable CASTILLO, LEEANN Referring Unavailable CASTILLO, LEEANN Primary Care Unavailable EL CARLOS, MOHAMAD H Referring Unavailable CASTILLO, LEEANN Primary Care Unavailable EL CARLOS, MOHAMAD H Admitting Unavailable EL CARLOS, MOHAMAD H Attending Unavailable EL CARLOS, MOHAMAD H Referring Unavailable CASTILLO, LEEANN Primary Care Unavailable JOSE ANGEL BALTAZAR Attending Unavailable TOM CAI JR Referring Unavailable [facility] Primary Care Unavailable RODRIGUE JJ Attending Unavailable SELF Referring Unavailable ORENTOM Rojo IRINA Primary Care Unavailable YI KIM Attending Unavailable YI KIM Referring Unavailable YI KIM Attending Unavailable YI KIM Referring Unavailable YI KIM Referring Unavailable YI KIM Attending Unavailable YI KIM Attending Unavailable MC CHATMAN Attending Unavailable RUSHER, MC S Attending Unavailable RUSHER, MC S Referring Unavailable RUSHER, MC S Attending Unavailable CAROLYN RICHARDS Attending Unavailable RUSHER, MC S Attending Unavailable RUSHER, MC S Attending Unavailable RUSHER, MC S Attending Unavailable RUSHER, MC S Attending Unavailable KIM, YI J Attending Unavailable KIM, YI J Referring Unavailable RODRIGUE JJ Referring Unavailable TOM PANIAGUA Primary Care Unavailable ALEA MCKENZIE Attending Unavailable CASTILLO, LEEANN Referring Unavailable CASTILLO, LEEANN Primary Care Unavailable CASTILLO, LEEANN Attending Unavailable CASTILLO, LEEANN Referring Unavailable CASTILLO, LEEANN Primary Care Unavailable CASTILLO, LEEANN Attending Unavailable CATSILLO, LEEANN Referring Unavailable CASTILLO, LEEANN Primary Care Unavailable NITHIN OROZCO I Attending Unavailable CASTILLO, LEEANN Referring Unavailable CASTILLO, LEEANN Primary Care Unavailable CASTILLO, LEEANN Attending Unavailable CASTILLO, ELEANN Referring Unavailable CASTILLO, LEEANN Primary Care Unavailable CASTILLO, LEEANN Attending Unavailable CASTILLO, LEEANN Referring Unavailable CASTILLO, LEEANN Primary Care Unavailable BOBBI STEEN Attending Unavailable CASTILLO, LEEANN Referring Unavailable CASTILLO, LEEANN Primary Care Unavailable BOBBI STEEN Attending Unavailable CASTILLO, LEEANN Referring Unavailable CASTILLO, LEEANN Primary Care Unavailable ACSTILLO, LEEANN Attending Unavailable CASTILLO, LEEANN Referring Unavailable [...] Primary Care Unavailable DOMITILA KUO Attending Unavailable FARFANSHAI Referring Unavailable CASTILLO, LEEANN Primary Care Unavailable BOBBI STEEN Referring Unavailable CASTILLO, LEEANN Primary Care Unavailable BOBBI STEEN Referring Unavailable CASTILLO, LEEANN Primary Care Unavailable SHAI FRAFAN Referring Unavailable CASTILLO, LEEANN Primary Care Unavailable CASTILLO, LEEANN Referring Unavailable CASTILLO, LEEANN Primary Care Unavailable Medications Current Medications MedicationDrug Class(es)DatesSig (Normalized)Sig (Original)acetaminophen 500 mg oral tablet (20 sources)Start: 73-93-0440fmtdnsoiyzkhx (TYLENOL EXTRA STRENGTH) 500 mg tablet 10/06/2023 ActiveStart: 10-06-2023 End: 00-48-0508mmns 2 tablets by mouth every eight hours as needed for pain Acetaminophen 500 mg Tablet Active 1000 MG PO Every 8 hours as needed for pain 0 October 0941:12pmStart: 10-06-2023 End: 20-64-8375jqkh 1000 mg by mouth every eight hoursAcetaminophen Active 1000 MG PO Every 8 hours 0 October 09, 2023 12:12pmStart: 10-24-2018 End: 04-69-9422osdq 2 tablets by mouth every six hours as needed for pain Acetaminophen 325 mg Tablet Discontinued 650 MG PO Every 6 hours as needed for Mild Pain 0 2018 1:00am November 22, 2018 7:30pmStart: 10-24-2018 End: 94-13-1328llcy 650 mg by mouth every six hoursAcetaminophen Discontinued 650 MG PO Every 6 hours 0 October 24, 2018 12:00am November 22, 2018 6:30pm amitriptyline hydrochloride 10 mg oral tablet (2 sources)Tricyclic AntidepressantStart: 56-61-9270ifqw 1 tablet by mouth at bedtimeAmitriptyline HCl 10 mg 1tabs Orally hs Sep, ActiveamLODIPine (20 sources)Dihydropyridine Calcium Channel BlockerStart: 33-73-4363rwlo 1 tablet by mouth once dailyAmlodipine Active 1 TAB PO DAILY November 20, 2021 3:25pmStart: 08-15-2018 End: 31-65-2859cgsj 1 tablet by mouth once dailyAmlodipine 10 mg tablet Discontinued 10 MG PO Daily November 29, 2018 9:10am September 26, 2023 7:37pm ARIPiprazole (2 sources)Atypical AntipsychoticAbilify Activeaspirin 81 mg delayed release oral tablet (20 sources)Platelet Aggregation Inhibitor, Nonsteroidal Anti-inflammatory Drug Start: 70-19-4716mmjrcqg 81 mg 10/08/2023 ActiveStart: 04-13-2020 End: 75-87-6945leis 1 tablet by mouth twice daily in the eveningaspirin, enteric coated (ECOTRIN LOW STRENGTH) 81 mg EC tablet Take 1 tablet by mouth twice daily. 60 tablet 04/13/2020 1:34 PM EDT 04/13/2020 05/14/2025 DiscontinuedStart: 09-11-2017 End: 45-74-4983jdzl 1 tablet by mouth once dailyAspirin (Aspir-81) 81 mg Tablet,Delayed Release (Dr/Ec) Discontinued 81 MG PO Daily September 11, 2017 1:00am August 15, 2018 3:28pmatorvastatin 80 mg oral tablet (20 sources)HMG-CoA Reductase InhibitorStart: 29-12-6698Yqzxiffgemtt 80 mg tablet Active 40 MG PO Every evening December 16, 2024 10:54amStart: 09-29-2024 take 1 tablet by mouth in the morningatorvastatin (LIPITOR) 40 mg tablet Take 1 tablet (40 mg total) by mouth in the morning. 90 tablet 3 09/29/2024 Active Start: 10-08-2023 End: 44-57-3798ytnz 0.5 tablet by mouth once dailyatorvastatin (Lipitor) 80 MG tablet Take 80 mg by mouth Daily 1/2 tab daily 10/08/2023 ActiveStart: 10-08-2023 End: 82-11-9331ngih 1 tablet by mouth once dailyatorvastatin (Lipitor) 80 mg tablet Indications: Hyperlipidemia, unspecified hyperlipidemia type TAKE 1 TABLET BY MOUTH ONCE DAILY. 90 tablet 3 02/28/2024 ActiveStart: 09-17-2017 End: 77-87-9788cbur 1 tablet by mouth once daily in the eveningAtorvastatin 20 mg Tablet Discontinued 20 MG PO Every evening September 17, 2017 1:00am 2017 6:04pmBenztropine (5 sources)Anticholinergic, AntihistamineStart: 71-84-8407vvyd 1 tablet by mouth twice dailyBenztropine Active 1 TAB PO TWICE A DAY November 20, 2021 3:25pmStart: 11-06-2018 End: 51-34-1257bqgv 1 tablet by mouth once daily in the morningBenztropine 0.5 mg Tablet Discontinued 0.5 MG PO Every morning 14 November 06, 2018 1:00am November 22, 2018 7:30pmbisacodyl 5 mg delayed release oral tablet (13 sources)Stimulant LaxativeStart: 73-94-6432saoq 1 tablet by mouth once daily as needed for constipationbisacodyL (DULCOLAX) 5 mg EC tablet Take 1 tablet (5 mg total) by mouth daily as needed for constipation. 4 tablet 03/23/2025 Active Start: 97-04-6035Ojeqbobzq Active 10 MG OH Daily 0 October 06, 2023 12:00am Start: 09-27-2023 End: 54-42-6316sdvdmdmxR (DULCOLAX) 10 mg suppository Insert 1 suppository (10 mg total) into the rectum in the morning. 0 09/27/2023 10/15/2023 Discontinued (Therapy completed)busPIRone hydrochloride 10 mg oral tablet (20 sources)Start: 71-94-6816kjdf 2 tablets by mouth in the morningbusPIRone (Buspar) 10 MG tablet Take 20 mg by mouth in the morning and 20 mg before bedtime. 12/16/2024 ActiveStart: 78-64-8541ibak 1 tablet by mouth twice daily busPIRone (BUSPAR) 10 mg tablet Take 10 mg by mouth two times a day. 12/16/2024 ActiveStart: 43-97-8679xktf 1 tablet by mouth in the morningbusPIRone (Buspar) 5 MG tablet Take 5 mg by mouth in the morning and 5 mg before bedtime. 06/19/2024 ActiveStart: 09-26-2023 End: 51-68-6393txjCRCxnx (BUSPAR) 30 mg tablet 30 mg twice a day 0 09/26/2023 10/15/2023 Discontinued (Therapy completed)Start: 43-86-8108xdhn 3 tablets by mouth twice dailyBuspirone 10 mg Tablet Active 30 MG PO Twice daily September 26, 2023 1:00amStart: 57-15-6451sydo 30 mg by mouth twice dailyBuspirone Active 30 MG PO Twice daily September 26, 2023 12:00amStart: 27-21-9020idya 1 tablet by mouth in the morningbusPIRone (BUSPAR) 30 mg tablet Take 1 tablet (30 mg total) by mouth in the morning and 1 tablet (30 mg total) before bedtime. 30 mg in AM and 15 mg hs. 0 06/04/2022 ActiveStart: 79-71-7735cwrf 1 tablet by mouth twice dailyBuspirone Active 1 TAB PO TWICE A DAY November 20, 2021 3:25pm Start: 11-06-2018 End: 22-35-9928untx 2 tablets by mouth three times dailyBuspirone 10 mg Tablet Discontinued 20 MG PO Three times daily 270 November 29, 2018 9:10am September 042023 7:45pmStart: 11-06-2018 End: 87-72-2912xaor 20 mg by mouth three times dailyBuspirone Discontinued 20 MG PO Three times daily 270 November 29, 2018 8:10am September 26, 2023 6:45pmStart: 10-20-2018 End: 36-58-7761hqtm 1 tablet by mouth three times dailyBuspirone 15 mg Tablet Discontinued 15 MG PO Three times daily October 24, 2018 11:35am November 06, 2018 3:29pmtake 2 tablets by mouth twice dailybusPIRone (Buspar) 10 mg tablet Take 2 tablets (20 mg) by mouth 2 times a day. Activetake 20 mg by mouth in the morningbusPIRone HCl (BUSPAR PO) 20 mg in the morning and 20 mg before bedtime. Activetake 1 tablet by mouth twice dailybusPIRone (Buspar) 10 mg tablet Take 1 tablet (10 mg) by mouth 2 times a day. ActivebusPIRone HCl (BUSPAR PO) BuSpar Activetake 1 tablet by mouth three times dailybusPIRone (BUSPAR) 10 MG tablet Take 1 (one) tablet (10 mg total) by mouth 3 (three) times a day . 0 Active BuSpar Activecarvedilol 12.5 mg oral tablet (20 sources)alpha-Adrenergic Shayne, beta-Adrenergic BlockerStart: 04-17-2023 End: 18-50-3418zpnj 1 tablet by mouth in the morning, then take 1 tablet by mouth at bedtimecarvediloL (COREG) 12.5 mg tablet Indications: Chronic diastolic CHF (congestive heart failure) ([facility]) Take 1 tablet (12.5 mg total) by mouth in the morning and 1 tablet (12.5 mg total) before bedtime. 180 tablet 1 10/15/2023 Activecholecalciferol 0.125 mg oral tablet (20 sources)Vitamin DStart: 03-14-2024 End: 44-90-9272syyy 1 tablet by mouth in the morningcholecalciferol, vitamin D3, 5,000 units tablet TAKE 1 TABLET (5,000 UNITS TOTAL) BY MOUTH IN THE MORNING. 90 tablet 3 03/04/2025 ActiveStart: 42-14-7574qjsi 1 capsule by mouth once daily Cholecalciferol (Vitamin D3) 125 mcg (5,000 unit) capsule Active 5000 UNIT PO Daily September 26, 2023 1:00amtake 1 tablet by mouth once dailycholecalciferol (VITAMIN D-3) 5,000 unit tab Take 5,000 Units by mouth once daily. Active Cholecalciferol (VITAMIN D3) 1.25 MG (35072 UT) CAPS Take by mouth Activetake 1 tablet by mouth in the morningcholecalciferol, vitamin D3, 5,000 units tablet Take 1 tablet (5,000 Units total) by mouth in the morning. ActivecloNIDine (20 sources)Central alpha-2 Adrenergic AgonistStart: 38-97-6185hdhy 1 tablet by mouth twice dailyClonidine Hcl Active 1 TAB PO TWICE A DAY November 20, 2021 3:25pmStart: 10-20-2018 End: 31-75-5739hcgf 1 tablet by mouth three times dailyClonidine Hcl 0.1 mg tablet Discontinued 0.1 MG PO Three times daily November 29, 2018 9:10am Rakan sushil 2023 7:38pmStart: 10-20-2018 End: 62-77-2950jssy 1 tablet by mouth every six hours as needed for hypertension Clonidine Hcl 0.1 mg Tablet Discontinued 0.1 MG PO Q6H as needed for Hypertension October 20, 2018 1:00am October 24, 2018 11:28amStart: 08-15-2018 End: 14-02-0455vdqn 0.1 mg by mouth twice dailyClonidine Hcl 0.2 mg Tablet Discontinued 0.1 MG PO Twice daily August 15, 2018 1:00am October 20, 2018 12:50pmStart: 08-15-2018 End: 41-89-8155kgvs 0.1 mg by mouth twice dailyClonidine Hcl Discontinued 0.1 MG PO Twice daily August 15, 2018 12:00am October 20, 2018 11:50amcloNIDine HCl Activeclopidogrel 75 mg oral tablet (20 sources)P2Y12 Platelet InhibitorStart: 01-22-2024 End: 32-18-7740tqjs 1 tablet by mouth once dailyclopidogreL (PLAVIX) 75 mg tablet Take 1 tablet (75 mg total) by mouth nightly. 01/11/2025 ActiveCPAP Mask and supplies misc (2 sources)Start: 00-89-7370WRBK Mask and supplies misc as directed hs Feb, Orzfed05 hr desvenlafaxine succinate 50 mg extended release oral tablet (1 source)Serotonin and Norepinephrine Reuptake InhibitorStart: 44-37-0207smvd 1 tablet by mouth once dailyDesvenlafaxine Succinate Active 1 TAB PO DAILY November 20, 2021 3:25pmdextromethorphan hydrobromide 30 mg / pyrilamine maleate 30 mg oral tablet (2 sources)Uncompetitive D-tfsygt-U-aspartate Receptor Antagonist, Sigma-1 AgonistStart: 61-57-3305Pbwgvi DMT 30-30 MG 1 tablet Orally every 6-8 hours for 7 days Sep, Activediclofenac sodium 0.01 mg/mg topical gel (1 source)Nonsteroidal Anti-inflammatory DrugStart: 87-05-5723cfnru 2 g topically three times dailyDiclofenac Sodium Active 2 GM TOPICAL Three times daily October 06, 2023 12:00amDocosahexaenoate (4 sources)DOCOSAHEXAENOIC ACID ORAL Take 1 capsule by mouth. Activedocusate sodium 100 mg oral capsule (2 sources)Start: 50-17-5132vopg 100 mg by mouth twice dailyDocusate Sodium Active 100 MG PO Twice daily 0 October 06, 2023 12:00amStart: 10-06-2023 Docusate Sodium (Enemeez) 283 mg/5 mL Enema Active 283 MG OH Daily 0 October 06, 2023 12:00amDULoxetine 60 mg delayed release oral capsule (20 sources)Serotonin and Norepinephrine Reuptake InhibitorStart: 69-29-4082fdfn 1 capsule by mouth in the morningDULoxetine (CYMBALTA) 60 mg capsule Take 1 capsule (60 mg total) by mouth in the morning. 09/29/2024 ActiveStart: 06-02-2022 End: 29-91-2540nsmd 1 capsule by mouth once dailyDULoxetine (Cymbalta) [address] capsule Take 30 mg by mouth Daily 06/09/2024 ActiveStart: 06-02-2022 End: 32-30-5059WSSegzfuhw (CYMBALTA) 60 mg capsule Take 90 mg by mouth in the morning. 90 mg in morning . 06/02/2022 09/29/2024 Discontinued (Duplicate Listing)take 1 capsule by mouth in the morningDULoxetine HCl 60 MG Capsule Delayed Release Sprinkle Take 60 mg by mouth in the morning. Activeempagliflozin 25 mg oral tablet (20 sources)Sodium-Glucose Cotransporter 2 InhibitorStart: 09-26-2023 End: 90-27-3194kuxw 1 tablet by mouth in the morningJARDIANCE 25 mg tablet tablet Indications: Type 2 diabetes mellitus with diabetic peripheral angiopathy without gangrene, with long-term current use of insulin (CMS-HCC) TAKE 1 TABLET (25 MG TOTAL) BY MOUTH IN THE MORNING 90 tablet 3 04/13/2025 ActiveStart: 70-82-4044kxio 1 tablet by mouth once dailyJardiance 10 MG Oral Tablet TAKE 1 TABLET BY MOUTH ONCE DAILY Quantity: 0 Refills: 0 Ordered: 06-Feb-2023 DO Start : 05-Feb-2023 ActiveExenatide Microspheres (Bydureon Bcise) 2 mg/0.85 mL auto-injector (1 source)Start: 88-37-8181Xaobxhozw Microspheres (Bydureon Bcise) 2 mg/0.85 mL auto-injector Active 2 MG SUBCUT Every Week November 20, 2021 3:25pmgentamicin 0.001 mg/mg topical ointment (20 sources)Start: 49-85-3123fletuqhahs (GARAMYCIN) 0.1 % ointment Apply 1 Application topically. 03/18/2025 ActiveStart: 01-31-0391pasbpfavtp (Garamycin) 0.1 % ointment Indications: Ulcer of right foot with fat layer exposed (HCC) Apply to wound once daily. 30 g 03/17/2025 ActiveStart: 04-07-2024 End: 66-81-0617dvivcfhupu (Garamycin) 0.1 % ointment Indications: Ulcer of right foot with fat layer exposed (CMS/HCC) Apply to wound once daily. 30 g 04/07/2024 09/26/2024 Discontinued (Therapy completed)Haloperidol (1 source)Typical AntipsychoticStart: 57-09-9394tvbw 0.5 tablet by mouth twice dailyHaloperidol Active 0.5 TAB PO TWICE A DAY November 20, 2021 3:25pm hydrOXYzine hydrochloride 25 mg oral tablet (20 sources)AntihistamineStart: 08-06-2024 End: 06-66-7197ufnb 1 tablet by mouth four times daily as needed for anxiety hydrOXYzine HCl (Atarax) 25 MG tablet TAKE 1 TABLET BY MOUTH 4 TIMES A DAY NEEDED FOR ANXIETY ORINSOMNIA 08/06/2024 ActiveStart: 01-28-2019 End: 41-46-1476wuzw 2 capsules by mouth every twenty-four hours as needed hydrOXYzine pamoate (VISTARIL) 25 mg capsule Take 50 mg by mouth at bedtime as needed. 01/28/2019 05/14/2025 DiscontinuedStart: 11-22-2018 End: 86-54-0342muer 2 tablets by mouth three times daily as needed for anxiety Hydroxyzine Hcl 25 mg tablet Discontinued 50 MG PO Three times daily as needed for Anxiety 2018 9:10am September 26, 2023 7:38pmStart: 11-22-2018 End: 53-78-9309obyl 50 mg by mouth three times dailyHydroxyzine Hcl Discontinued 50 MG PO Three times daily November 29, 2018 8:10am September 26, 2023 6:38pm hyoscyamine sulfate 0.125 mg sublingual tablet (20 sources)Start: 00-39-1343jnuugixcisv (Levsin) 0.125 MG SL tablet Take 125 mcg by mouth every 4 (four) hours if needed 10/22/2024 ActiveStart: 10-22-2024 End: 92-58-6927ntyk 1 tablet by mouth every four hours as neededhyoscyamine (LEVSIN) 0.125 mg SL tablet Take 1 tablet (125 mcg total) by mouth every 4 (four) hoursas needed for cramping. 30 tablet 10/22/2024 04/01/2025 Discontinued (Therapy completed)3 ml insulin glargine 300 unt/ml pen injector (20 sources)Insulin AnalogStart: 09-29-2024 End: 63-66-2610sgzbac 50 [IU] by subcutaneous injection in the morning, then inject 75 [IU] by subcutaneous injection once dailyTOUJEO MAX U-300 SOLOSTAR 300 unit/mL (3 mL) insulin pen Indications: Type 2 diabetes mellitus withdiabetic peripheral angiopathy without gangrene, with long-term current use of insulin (CMS-HCC) Inject 50 Units under the skin in the morning. Up to 75 units daily. 27 mL 3 10/17/2024 03/17/2025 DiscontinuedStart: 96-43-9078bgelce 42 [IU] by subcutaneous injection in the morning, then inject 75 [IU] by subcutaneous injection once dailyTOUJEO MAX U-300 SOLOSTAR 300 unit/mL (3 mL) insulin pen Indications: Type 2 diabetes mellitus withdiabetic peripheral angiopathy without gangrene, with long-term current use of insulin (CMS-HCC) Inject 42 Units under the skin in the morning. Up to 75 units daily. 03/17/2025 ActiveStart: 55-42-2108HOUYWZ MAX U-300 SOLOSTAR 300 unit/mL (3 mL) inpn Inject 42 Units subcutaneously daily at bedtime. 10/15/2023 ActiveStart: 10-15-2023 End: 87-16-9680Msjvae Max U-300 SoloStar 300 unit/mL (3 mL) injection INJECT 66 UNITS UNDER THE SKIN IN THE MORNING. 01/01/2024 ActiveStart: 09-26-2023 End: 69-71-2560ugqyhw 33 [IU] by subcutaneous injection once daily in the eveningInsulin Glargine 100 unit/mL (3 mL) insulin pen Discontinued 33 UNIT SUBCUT Every evening September 26, 2023 1:00am December 16, 2024 10:56amStart: 54-64-0241KXLSLF MAX U-300 SOLOSTAR 300 unit/mL (3 mL) insulin pen Indications: Type 2 diabetes mellitus withdiabetic peripheral angiopathy without gangrene, with long-term current use of insulin (CMS-HCC) Inject up to 100 units daily 30 mL 3 08/07/2023 ActiveStart: 28-93-5543Anqlct Max SoloStar 300 UNIT/ML Subcutaneous Solution Pen-injector inject as directed Quantity: 0 Refills: 0 Ordered: 17-Oct-2022 DO Start : 12-Oct-2022 ActiveInsulin Glargine (TOUJEO MAX SOLOSTAR SC) Inject 50 Units into the skin at bedtime 50 units nightly. Active Insulin Glargine U-300 Conc (1 source)Start: 96-81-9783Yjcjxwd Glargine U-300 Conc (Toujeo Max U-300 Solostar) 300 unit/mL (3 mL) insulin pen Active 54 UNIT SUBCUT DAILY November 20, 2021 3:25pminsulin glargine,hum.rec.anlog (TOUJEO MAX U-300 SOLOSTAR SUBQ) (3 sources) End: 22-84-5316emmkyd 66 [IU] by subcutaneous injection once daily at bedtime insulin glargine,hum.rec.anlog (TOUJEO MAX U-300 SOLOSTAR SUBQ) Inject 66 Units under the skin oncedaily at bedtime. Take as directed per insulin instructions. 07/16/2024 Discontinued (Therapy completed)inject 66 [IU] by subcutaneous injection once daily at bedtimeinsulin glargine,hum.rec.anlog (TOUJEO MAX U-300 SOLOSTAR SUBQ) Inject 66 Units under the skin oncedaily at bedtime. Take as directed per insulin instructions. Activeinject 66 [IU] by subcutaneous injection once daily at bedtimeinsulin glargine,hum.rec.anlog (TOUJEO MAX U-300 SOLOSTAR SUBQ) Inject 66 Units under the skin oncedaily at bedtime. Take as directed per insulin instructions. 0 Active3 ml insulin lispro 100 unt/ml pen injector (20 sources)Insulin AnalogStart: 48-35-0649BMNKUNL SOLOSTAR U-100 INSULIN 100 unit/mL insulin pen Indications: Type 2 diabetes mellitus with diabetic peripheral angiopathy without gangrene, with long-term current use of insulin ([facility]) Per scale up to 25 units 3 times daily with meals, max dose of 75 units daily 75 mL 3 10/17/2024 ActiveStart: 41-68-0368PJAKFIG SOLOSTAR U-100 INSULIN 100 unit/mL insulin pen Indications: Type 2 diabetes mellitus with di abetic peripheral angiopathy without gangrene, with long-term current use of insulin ([facility]) Per scale up to 25 units 3 times daily with meals, max dose of 75 units daily 75 mL 3 10/17/2024 ActiveStart: 09-26-2023 End: 68-93-8987wgludd 400 mg by subcutaneous injection four times daily at mealtimeinsulin lispro (HumaLOG) 100 unit/mL insulin pen Inject [...] 400 mg/dL 15 mL 12 09/26/2023 10/17/2024 DiscontinuedStart: 09-26-2023 End: 68-43-5597ykaaxq 1 dose by subcutaneous injection at bedtimeInsulin Lispro (Humalog Kwikpen Insulin) 200 unit/mL (3 mL) insulin pen Discontinued 1 sliding scale dose SUBCUT Before meals and at bedtime September 26, 2023 1:00am October 06, 2023 12:25pmStart: 27-19-2932KiyuXGQ KwikPen Insulin 200 unit/mL (3 mL) insulin pen Indications: Type 2 diabetes mellitus with diabetic peripheral angiopathy without gangrene, with long-term current use of insulin ([facility] [place]) Up to 20 units with meals + scale with meals, up to 100 units daily in divided doses 45 mL 3 08/07/2023 ActiveStart: 56-90-4751IeuyOJM KwikPen 200 UNIT/ML Subcutaneous Solution Pen-injector PLEASE SEE ATTACHED FOR DETAILED DIRECTIONS Quantity: 30 Refills: 0 Ordered: 16-Nov-2022 DO Start : 16-Nov-2022 Active Insulin Lispro 100 UNIT/ML solution Inject under the skin in the morning and at noon and in the evening. Inject with meals. Activeinject 100 [IU] by subcutaneous injection at mealtimeinsulin lispro (Admelog SoloStar) 100 UNIT/ML injection Inject under the skin in the morning and atnoon and in the evening. Inject with meals. ActiveInsulin Lispro 100 UNIT/ML solution Inject under the skin 3 (three) times a day with meals. Activeinsulin lispro, 1 Unit Dial, (HUMALOG KWIKPEN) 100 UNIT/ML SOPN Inject into the skin 3 times daily Active3 ml insulin lispro 50 unt/ml / insulin lispro protamine, human 50 unt/ml pen injector (4 sources)Insulin Analoginsulin lispro protamin-lispro (HumaLOG Mix 50-50 KwikPen) 100 unit/mL (50-50) injection Inject under the skin 2 times a day with meals. Take as directed per insulin instructions. Per sliding scale Active labetalol hydrochloride 200 mg oral tablet (20 sources)beta-Adrenergic BlockerStart: 51-16-6235ebby 1 tablet by mouth in the morninglabetalol (Normodyne) 200 MG tablet Take 1 tablet by mouth in the morning and 1 tablet before bedtime. 09/22/2022 ActiveStart: 20-67-9734mgqd 1 tablet by mouth twice dailyLabetalol Active 1 TAB PO TWICE A DAY November 20, 2021 3:25pm End: 54-23-5996cwfp 1 tablet by mouth twice dailylabetalol (TRANDATE) 200 mg tablet Take 200 mg by mouth twice daily. 05/14/2025 DiscontinuedLabetalol HCl Activelactulose 667 mg/ml oral solution (1 source)Osmotic LaxativeStart: 10-02-8410xedb 30 g by mouth once daily Lactulose Active 30 GM PO Daily October 06, 2023 12:00amloperamide hydrochloride 2 mg oral capsule (1 source)Opioid AgonistStart: 99-27-2629aevb 2 mg by mouth every two hours Loperamide Active 2 MG PO Q2H October 06, 2023 12:00amLORazepam 1 mg oral tablet (20 sources)BenzodiazepineStart: 30-42-4691zodw 1 tablet by mouth every eight hours as needed for anxietyLORazepam (Ativan) 1 MG tablet TAKE 1 TABLET BY MOUTH EVERY 8 HOURS NEEDED FOR ANXIETY FOR UP TO10 DAYS 01/18/2025 ActiveStart: 10-06-2023 End: 70-30-0391pbun 1 tablet by mouth at bedtime as needed for anxietyLorazepam 0.5 mg Tablet Discontinued 0.5 MG PO Bedtime as needed for Anxiety October 06, 2023 1:00am December 16, 2024 10:58amStart: 09-26-2023 End: 68-79-3768PTZogihsq (ATIVAN) 0.5 mg tablet Indications: Cauda equina compression (CMS-HCC) Take 1mg in the morning and 0.5mg at bedtime 15 tablet 09/26/2023 09/29/2024 Discontinued (Discontinued by another clinician)Start: 09-26-2023 End: 62-13-2182wcws 1 tablet by mouth once daily in the morningLorazepam 1 mg tablet Discontinued 1 MG PO Every morning September 26, 2023 1:00am December 16609039:58amStart: 51-10-9218nswe 0.5 tablet by mouth in the evening as needed LORazepam 1 MG Oral Tablet TAKE 1MG IN AM 1/2 TAB AT PM NEEDED Quantity: 0 Refills: 0 Ordered: 05-Feb-2023 DO Start : 28-Dec-2022 ActiveStart: 12-28-2022 LORazepam (ATIVAN) 1 mg tablet 1 mg in the morning and 1/2 at night 0 12/28/2022 ActiveStart: 11-21-2022 End: 46-26-3400DXFashjdr 1 MG/0.5ML concentration LORazepam 11/21/2022 09/26/2024 Discontinued (Therapy completed)Start: 09-11-2017 End: 66-29-1367zgsk 3 tablets by mouth twice daily as needed for anxiety Lorazepam 0.5 mg Tablet Discontinued 1.5 MG PO Twice daily as needed for Anxiety September 11, 2017 1:00am October 20, 2018 12:52pmStart: 09-11-2017 End: 01-49-1940hcei 1.5 mg by mouth twice dailyLorazepam Discontinued 1.5 MG PO Twice daily September 11, 2017 12:00am October 20, 2018 11:52amlosartan potassium 25 mg oral tablet (20 sources)Angiotensin 2 Receptor BlockerStart: 09-26-2023 End: 33-55-4561qzvc 1 tablet by mouth in the morninglosartan (COZAAR) 25 mg tablet Take 1 tablet (25 mg total) by mouth in the morning. 09/26/2023 Active Start: 09-17-2017 End: 46-00-3414edjn 1 tablet by mouth twice dailyLosartan 50 mg Tablet Discontinued 50 MG PO Twice daily 60 September 17, 2017 1:00am August 15, 2018 3:28pmStart: 09-11-2017 End: 33-99-7998szog 1 tablet by mouth once dailyLosartan 50 mg Tablet Discontinued 50 MG PO Daily September 11, 2017 1:00am September 17, 2017 11:36am MEDICATION, NON-DATABASE (3 sources)MEDICATION, NON-DATABASE supplements Activemelatonin 3 mg oral tablet (20 sources)Start: 10-06-2023 End: 68-53-6579mjni 1 tablet by mouth once daily at bedtimeMelatonin 5 mg Tablet Discontinued 5 MG PO Daily at bedtime 0 October 06, 2023 1:00am October 06, 2023 3:10pmStart: 09-26-2023 End: 46-41-1630nvpz 2 capsules by mouth at bedtime as needed for sleepMelatonin 3 mg capsule Discontinued 6 MG PO Bedtime as needed for sleep September 26, 2023 1:00am October 06, 2023 12:25pmStart: 09-26-2023 End: 50-49-2233tvud 6 mg by mouth at bedtimeMelatonin Discontinued 6 MG PO Bedtime September 26, 2023 12:00am October 06, 2023 11:25amStart: 12-07-2022 take 2 tablets by mouth once daily as needed, then take 1-2 tablets by mouth once daily as neededmelatonin (CIRCADIN) tablet Take 2 tablets (6 mg total) by mouth nightly. 1-2 tabs as needed nightly 12/07/2022 ActiveStart: 11-21-2022 melatonin 3 MG tablet 11/21/2022 ActiveStart: 97-77-8310Uvsxfimdo 1 MG capsule Melatonin 11/21/2022 Activetake 1 capsule by mouth once daily at bedtime melatonin 10 mg cap Take 1 capsule by mouth daily at bedtime. Activetake 2 capsules by mouth once daily at bedtimemelatonin 3 mg capsule Take 2 capsules by mouth once daily at bedtime. ActiveMelatonin 3 MG Oral Tablet TAKE DIRECTED. Quantity: 0 Refills: 0 Ordered: 15-Mar-2023 DO ActivemetFORMIN (6 sources)BiguanideStart: 09-98-0685baqe 1 tablet by mouth twice dailyMetformin Active 1 TAB PO TWICE A DAY November 20, 2021 3:25pmtake 1 tablet by mouth twice daily at mealtimemetFORMIN (GLUCOPHAGE) 500 mg tablet Take 500 mg by mouth twice daily with meals. Activetake 1 tablet by mouth once dailymetFORMIN HCl 500 MG 1 tablet with a meal Orally Once a day Activemirtazapine 15 mg oral tablet (20 sources)Start: 16-31-8089eqas 1 tablet by mouth once daily at bedtime mirtazapine (REMERON) 15 mg tablet Take 1 tablet (15 mg total) by mouth once daily at bedtime. 08/08/2024 ActiveStart: 09-11-2017 End: 81-78-5458psji 1 tablet by mouth once daily at bedtimeMirtazapine 15 mg Tablet Discontinued 15 MG PO Daily at bedtime September 11, 2017 1:00am August 15, 2018 3:28pmmupirocin 0.02 mg/mg topical ointment (3 sources)RNA Synthetase Inhibitor AntibacterialStart: 73-73-2502pduzsaxpd (BACTROBAN) 2 % ointment Indications: Pre-op exam , Primary osteoarthritis of right knee , Essential hypertension , S/P CABG (coronary artery bypass graft) , Unspecified sleep apnea , Prediabetes , Atherosclerosis of [place] coronary artery of [place] heart without angina pectoris , Vocal cord granuloma , Hyperlipidemia, unspecified hyperlipidemia type , Esophageal stricture Apply 0.5 inch with cotton swab (Q-tip) to each nostril in the morning and evening for 5 days prior to and including day of surgery. 22 g 04/01/2020 Activenitroglycerin 0.4 mg sublingual tablet (20 sources)Nitrate VasodilatorStart: 39-72-9411zvjimjztukycp (NITROSTAT) 0.4 MG SL tablet 10/06/2023 ActiveStart: 10-06-2023 End: 38-86-7913iobtqikkwmqbt sublingual (NITROQUICK) 0.4 mg SL tablet Dissolve 0.4 mg under the tongue every 5 minutes as needed. 10/06/2023 Activenystatin 471989 unt/ml oral suspension (1 source)Polyene AntifungalStart: 01-04-2023 End: 70-48-4500xfnh 5 mL by mouth four times dailynystatin (MYCOSTATIN) 100,000 unit/mL suspension Take 5 mL (500,000 Units total) by mouth 4 (four) times a day for 10 days . 200 mL 0 01/04/2023 01/14/2023 Activeomega 6-coh-tdo-fish oil (Fish OiL) 1,000 mg (120 mg-180 mg) capsule (4 sources)take 1 capsule by mouth once dailyomega 7-xrg-qys-fish oil (Fish OiL) 1,000 mg (120 mg-180 mg) capsule Take 1 capsule (1,000 mg) by mouth once daily. Activetake 1 capsule by mouth once dailyomega 5-dxk-prt-fish oil (Fish OiL) 1,000 mg (120 mg-180 mg) capsule Take 1 capsule (1,000 mg) by mouth once daily. 0 Activeomega 1-dau-rrw-fish oil (Fish OiL) 300-1,000 mg capsule (20 sources)omega 5-uxx-ali-fish oil (Fish OiL) 300-1,000 mg capsule Take by mouth Daily at 0300. Activeomega 8-cee-xxx-fish oil (Fish OiL) 300-1,000 mg capsule Take by mouth. Activeomega 1-jsg-mce-fish oil (Fish OiL) 300-1,000 mg capsule Take by mouth. 0 Activeomega-3 DHA-EPA (FISH OIL) 1,200 (144-216) mg capsule (1 source)take 1 capsule by mouth once daily at breakfastomega-3 DHA-EPA (FISH OIL) 1,200 (144-216) mg capsule Take 1 capsule by mouth daily with breakfast. ActiveOmega-3 Fatty Acids (Fish Oil) 1200 MG capsule delayed-release (14 sources)[place]-3 Fatty Acids (Fish Oil) 1200 MG capsule delayed-release Take by mouth ActiveOzempic, 2 MG/DOSE, 8 MG/3ML solution pen-injector (20 sources)Start: 45-32-7676Ajisueq, 2 MG/DOSE, 8 MG/3ML solution pen-injector 08/31/2024 Activepantoprazole 20 mg delayed release oral tablet (3 sources)Proton Pump InhibitorStart: 57-47-3870dhed 1 tablet by mouth once daily in the eveningpantoprazole DR (PROTONIX) 20 mg tablet Take 1 tablet by mouth once daily for 14 days. 14 tablet 04/13/2020 1:34 PM EDT 04/11/2020 Active polyethylene glycol 3350 236217 mg / potassium chloride 2970 mg / sodium bicarbonate 6740 mg / sodium chloride 5860 mg / sodium sulfate 70374 mg powder for oral solution (11 sources)Osmotic LaxativeStart: 49-94-8480bgltktxeufqi glycol (GoLYTELY) 236-22.74-6.74 -5.86 gram solution Please follow office colonoscopy i nstructions. 4000 mL 03/23/2025 Activepotassium 99 mg extended release oral tablet (14 sources)Potassium 99 MG tablet Take by mouth Activepotassium chloride 10 meq extended release oral tablet (20 sources)Start: 08-19-2024 End: 41-47-3542Xdhuhqrug Chloride 10 mEq tablet extended release Active 10 MEQ PO as needed December 16, 2024 12:00amtake 1 capsule by mouth once as needed potassium chloride (KLOR-CON SPRINKLE) 10 MEQ CR capsule Take 1 capsule (10 mEq total) by mouth as needed. Per Dr. Watts Activepsyllium 400 mg oral capsule (3 sources)Start: 86-65-4277wtwvpyzh husk (MetamuciL) 0.4 gram capsule Indications: Constipation, unspecified constipation typeTake 1 capsule (0.4 g total) by mouth in the morning. 0 09/11/2023 ActiverisperiDONE 1 mg oral tablet (20 sources)Atypical AntipsychoticStart: 85-29-4115bnha 0.5 mg by mouth once dailyrisperiDONE (RISPERDAL) 1 mg tablet Take 0.5 mg by mouth once daily. 05/10/2025 ActiveStart: 44-30-7584obmi 1 tablet by mouth in the morning, then take 1 tablet by mouth at bedtimerisperiDONE (RisperDAL) 0.5 mg tablet Take 1 tablet (0.5 mg total) by mouth in the morning and 1 tablet (0.5 mg total) before bedtime. 02/24/2025 ActiveStart: 08-08-2024 End: 86-29-5143kjna 1 tablet by mouth in the morning, then take 1 tablet by mouth at bedtimerisperiDONE (RisperDAL) 1 mg tablet Take 1 tablet (1 mg total) by mouth in the morning and 1 tablet(1 mg total) before bedtime. 08/08/2024 01/14/2025 Discontinued End: 02-81-6471cajs 1 tablet by mouth twice dailyrisperiDONE (RisperDAL M-TAB) 1 mg disintegrating tablet Dissolve 1 tablet (1 mg) in the mouth 2 times a day. Activesacubitril 24 mg / valsartan 26 mg oral tablet (7 sources)Angiotensin 2 Receptor BlockerStart: 06-06-2023 End: 53-25-2239yeog 1 tablet by mouth at bedtimeENTRESTO 24-26 mg tablet Indications: Chronic diastolic CHF (congestive heart failure) ([facility]) TAKE 1 TABLET BY MOUTH IN THE MORNING AND BEFORE BEDTIME 180 tablet 0 09/04/2023 Active Start: 46-45-1964abnw 1 tablet by mouth twice dailyEntresto 24-26 MG Oral Tablet Take 1 tablet twice daily Quantity: 180 Refills: 3 Ordered: 20-Feb-2023 DO Start : 19-Feb-2023 ActiveSemaglutide (3 sources)Start: 04-12-0538hqrilb 1 mg by subcutaneous injection every week Semaglutide (Ozempic) 1 mg/dose (4 mg/3 mL) pen injector Active 2 MG SUBCUT .weekly September 26, 2023 1:00amStart: 13-53-7181egvzkc 1 mg by subcutaneous injection every weekSemaglutide (Ozempic) 1 mg/dose (4 mg/3 mL) pen injector Active 2 MG SUBCUT .weekly September 26, 2023 12:00am0.25 mg, 0.5 mg dose 1.5 ml semaglutide 1.34 mg/ml pen injector (20 sources) End: 81-37-7075kokaphpjjkw (OZEMPIC) 0.25 mg or 0.5 mg(2 mg/1.5 mL) pen Inject 2 mg subcutaneously one time a week. Activesemaglutide (OZEMPIC SUBCUTANEOUS) (3 sources)inject 1 dose by subcutaneous injection every weeksemaglutide (OZEMPIC SUBCUTANEOUS) Inject 1 Dose subcutaneously one time a week. 50 mg weekly Activesemaglutide (Ozempic) 2 mg/dose (8 mg/3 mL) pen injector (2 sources)semaglutide (Ozempic) 2 mg/dose (8 mg/3 mL) pen injector Inject 2 mg under the skin every 7 days. Activesemaglutide (OZEMPIC) 2 mg/dose (8 mg/3 mL) pen injector (20 sources)Start: 06-50-6368ksregstgetu (OZEMPIC) 2 mg/dose (8 mg/3 mL) pen injector Indications: Type 2 diabetes mellitus withdiabetic peripheral angiopathy without gangrene, with long-term current use of insulin (CMS-HCC) Inj ect 2 mg under the skin every 7 days. 9 mL 3 10/17/2024 ActiveStart: 12-27-2023 End: 35-54-7390thhhuujymus (OZEMPIC) 2 mg/dose (8 mg/3 mL) pen injector Indications: Type 2 diabetes mellitus withdiabetic peripheral angiopathy without gangrene, with long-term current use of insulin (CMS-HCC) Inject 2 mg under the skin every 7 days. 9 mL 3 12/27/2023 10/17/2024 Discontinued (Reorder)Start: 45-97-6410fuiqotxwdov (OZEMPIC) 2 mg/dose (8 mg/3 mL) pen injector Indications: Type 2 diabetes mellitus withdiabetic peripheral angiopathy without gangrene, with long-term current use of insulin (CMS-HCC) Inject 2 mg under the skin every 7 days. 9 mL 3 12/27/2023 ActiveStart: 09-26-2023 End: 08-65-9377kemffkzmtcl (OZEMPIC) 2 mg/dose (8 mg/3 mL) pen injector Indications: Type 2 diabetes mellitus withdiabetic peripheral angiopathy without gangrene, with long-term current use of insulin (CMS-HCC) Inject 2 mg under the skin every 7 days. On 0 09/26/2023 10/15/2023 Discontinued (Therapy completed)Start: 56-90-4361oerflspmudt (OZEMPIC) 2 mg/dose (8 mg/3 mL) pen injector Indications: Type 2 diabetes mellitus withdiabetic peripheral angiopathy without gangrene, with long-term current use of insulin (CMS-HCC) Inj ect 2 mg under the skin every 7 days. 3 mL 11 08/07/2023 ActiveSemaglutide (OZEMPIC, 2 MG/DOSE, SC) (1 source)Semaglutide (OZEMPIC, 2 MG/DOSE, SC) Inject into the skin Active sildenafil 50 mg oral tablet (20 sources)Phosphodiesterase 5 InhibitorStart: 42-90-1522shap 1 tablet by mouth every twenty-four hours as neededsildenafil (Viagra) 50 MG tablet Take 50 mg by mouth Daily as needed 10/11/2022 Activespironolactone 25 mg oral tablet (20 sources)Aldosterone AntagonistStart: 10-08-2023 End: 42-07-3640bjdb 0.5 tablet by mouth in the morningspironolactone (ALDACTONE) 25 mg tablet Take 0.5 tablets (12.5 mg total) by mouth in the morning. ActiveStart: 10-08-2023 End: 42-50-8971rcfncfsxgkylml (ALDACTONE) 25 mg tablet 10/08/2023 ActiveStart: 41-65-8149jbjnawzjzmkyxl (ALDACTONE) 25 mg tablet Take 12.5 mg by mouth once daily. 10/08/2023 ActiveStart: 98-30-7830ihjd 12.5 mg by mouth once daily Spironolactone Active 12.5 MG PO Daily October 08, 2023 12:00amtraZODone hydrochloride 100 mg oral tablet (20 sources)Serotonin Reuptake InhibitorStart: 01-31-2024 End: 43-53-0464anro 0.5-1 tablets by mouth at bedtime as needed for sleep traZODone (Desyrel) 100 MG tablet TAKE 1/2 TO 1 TABLET BY MOUTH AT BEDTIME NEEDED FOR SLEEP 10/31/2024 ActiveStart: 28-41-7596zacAHTohp (Desyrel) 50 MG tablet 11/21/2022 ActiveStart: 31-65-9676tnet 1 tablet by mouth once daily in the eveningTrazodone Active 1 TAB PO Every Evening November 20, 2021 3:25pmStart: 11-13-2018 End: 72-23-6903uzkn 1 tablet by mouth at bedtime as neededTrazodone 50 mg tablet Discontinued 50 MG PO Bedtime as needed for Insomnia November 22, 2018 12:00am November 29, 2018 9:07amStart: 10-14-2018 End: 69-63-3592ituf 1 tablet by mouth at bedtime as needed for sleepTrazodone 50 mg tablet Discontinued 50 MG PO Bedtime as needed for Sleep October 14, 2018 1:00amFebruary 2018 12:52pmdivalproex sodium 125 mg delayed release oral capsule (20 sources)Mood Stabilizer, Anti-epileptic AgentStart: 40-66-4701zagv 2 capsules by mouth in the morning, then take 2 capsules by mouth at bedtime divalproex sprinkle (DEPAKOTE SPRINKLE) 125 mg capsule Take 2 capsules (250 mg total) by mouth in the morning and 2 capsules (250 mg total) before bedtime. 03/17/2025 ActiveStart: 03-16-2025 End: 44-45-5440sfbg 1 capsule by mouth in the morning, then take 1 capsule by mouth at bedtimedivalproex sprinkle (DEPAKOTE SPRINKLE) 125 mg capsule Take 1 capsule (125 mg total) by mouth in the morning and 1 capsule (125 mg total) before bedtime. 03/16/2025 03/17/2025 DiscontinuedStart: 08-08-2024 End: 13-98-2079rneg 1 capsule by mouth in the morning, then take 1 capsule by mouth at bedtimedivalproex sprinkle (DEPAKOTE SPRINKLE) 125 mg capsule Take 1 capsule (125 mg total) by mouth in the morning and 1 capsule (125 mg total) before bedtime. 08/08/2024 09/29/2024 Discontinued (Patient Stopped On Own)take 2 tablets by mouth in the morningdivalproex (Depakote) 125 MG EC tablet Take 250 mg by mouth in the morning and 250 mg before bedtime. Do not crush, chew, or split. Activetake 4 capsules by mouth at bedtimeDivalproex Sodium (DEPAKOTE SPRINKLES PO) Take 125 mg by mouth in the morning and at bedtime 4 capsules Activevitamin b12 1 mg oral tablet (20 sources)Vitamin T19Qklwq: 05-14-2025 End: 78-60-4248bhvs 1 tablet by mouth in the morningcyanocobalamin 1000 MCG tablet Take 1 tablet (1,000 mcg total) by mouth in the morning. 05/14/2025 0 11/10/2025 ActiveStart: 03-28-2024 End: 35-09-1913uipp 1 tablet by mouth in the morningcyanocobalamin 1000 MCG tablet Take 1 tablet (1,000 mcg total) by mouth in the morning. 90 tablet 3 03/28/2024 09/29/2024 Discontinued (Therapy completed)Start: 03-14-2024 End: 22-32-8602wttt 3 tablets by mouth in the morningcyanocobalamin (VITAMIN B- 12) 100 MCG tablet Take 10 tablets (1,000 mcg total) by mouth in the morning. 90 tablet 3 03/14/2024 03/24/2024 Discontinued (Reorder)Start: 10-06-2023 End: 73-84-6448ivlh 1 tablet by mouth once daily in the morningCyanocobalamin (Vitamin B-12) 1,000 mcg Tablet Discontinued 1000 MCG PO Every morning 0 October 06, 2023 1:00am October 06, 2023 3:11pmStart: 08-04-2023 End: 28-68-2054chnz 1 tablet by mouth once dailyCyanocobalamin (Vitamin B-12) 100 mcg tablet Discontinued 100 MCG PO Daily September 26, 2023 1:00am October 06, 2023 12:25pmStart: 40-35-6420tjmr 1 tablet by mouth twice dailyVitamin B-12 100 MCG Oral Tablet Take 1 tablet twice daily Quantity: 0 Refills: 0 Ordered: 15-Jan-2023 DO Start : 15-Jan-2023 Active Completed/Discontinued Medications MedicationDrug Class(es)DatesSig (Normalized)Sig (Original)[id number] 200 actuat albuterol 0.09 mg/actuat metered dose inhaler (4 sources)beta2-Adrenergic AgonistStart: 08-12-2023 End: 61-74-3639jwnq 2 puff(s) by mouth every four hours as needed for wheezing albuterol (PROVENTIL HFA;VENTOLIN HFA) 90 mcg/actuation inhaler INHALE 2 PUFFS BY MOUTH EVERY 4 HOURS NEEDED FOR WHEEZING OR SHORTNESS OF BREATH 0 08/12/2023 09/19/2023 DiscontinuedALPRAZolam 1 mg oral tablet (4 sources)BenzodiazepineStart: 10-14-2018 End: 04-92-4637pmni 1 tablet by mouth twice daily as needed for anxiety Alprazolam 1 mg tablet Discontinued 1 MG PO Twice daily as needed for Anxiety October 14, 2018 1:00am October 20, 2018 12:52pmaluminum hydroxide 40 mg/ml / magnesium hydroxide 40 mg/ml / simethicone 4 mg/ml oral suspension (3 sources)Start: 10-06-2023 End: 16-54-5969ydey 1 mL by mouth every four hours as neededAlum-Mag Hydroxide- Simeth (Mag-Al Plus) 200-200-20 mg/5 mL Suspension Discontinued 30 ML PO Q4H as needed for Indigestion 0 October 06, 2023 1:00am October 09, 2023 5:36pm azithromycin 250 mg oral tablet (2 sources)Macrolide AntimicrobialStart: 08-12-2023 End: 13-21-1323pjdbkhypdpua (ZITHROMAX) 250 mg tablet PLEASE SEE ATTACHED FOR DETAILED DIRECTIONS 0 08/12/2023 09/11/2023 Discontinued (Therapy completed) bempedoic acid 180 mg oral tablet (8 sources)Start: 08-23-2023 End: 59-66-4500pexy 1 tablet by mouth once dailyBempedoic Acid (Nexletol) 180 mg tablet Discontinued 180 MG PO Daily September 26, 2023 1:00am October 09, 2023 2:51pmbenzonatate 200 mg oral capsule (2 sources)Non-narcotic AntitussiveStart: 08-12-2023 End: 80-67-8303yagw 1 capsule by mouth three times daily as needed for cough benzonatate (TESSALON PERLES) 200 mg capsule TAKE 1 CAPSULE BY MOUTH THREE TIMES A DAY NEEDED FOR COUGH 0 08/12/2023 09/11/2023 Discontinued (Therapy completed)5 ml bupivacaine hydrochloride 5 mg/ml injection (4 sources)Amide Local AnestheticStart: 10-31-2024 End: 36-20-7395aruprebqdud PF (Marcaine) 0.5 % injection 0.5 mLStart: 10-31-2024 End: 50.5 mL, Once PRN Procedure, Starting on Sun10/31/24 at 1056, For 1 dose24 hr buPROPion hydrochloride 150 mg extended release oral tablet (4 sources)AminoketoneStart: 10-14-2018 End: 75-56-7714qlvv 1 tablet by mouth once dailyBupropion Hcl 150 mg tablet extended release 24 hr Discontinued 150 MG PO Daily October 14, 20181:00am October 20, 2018 12:52pmcariprazine 6 mg oral capsule (3 sources)Atypical AntipsychoticStart: 04-09-2019 End: 63-82-0216NPMAFBY 6 mg cap Take 1.5 mg by mouth. 04/09/2019 05/14/2025 Discontinuedcephalexin 500 mg oral capsule (2 sources)Cephalosporin AntibacterialStart: 08-12-2023 End: 31-40-3028lndn 2 capsules by mouth twice dailyCEPHalexin (KEFLEX) 500 mg capsule TAKE 2 CAPSULES BY MOUTH TWICE A DAY 0 08/12/2023 09/11/2023 Disc ontinued (Therapy completed)chlorthalidone 25 mg oral tablet (19 sources)Thiazide-like DiureticStart: 51-68-9701qehe 1 tablet by mouth once daily as neededChlorthalidone 25 MG Oral Tablet TAKE 1 TABLET Daily prn Quantity: 90 Refills: 3 Ordered: 15-Sep-2022 DO Start : 14-Jun-2022 ActiveStart: 56-68-2892ojxn 1 tablet by mouth once dailyChlorthalidone Active 1 TAB PO DAILY November 20, 2021 3:25pmStart: 10-20-2018 End: 82-00-5464xmds 2 tablets by mouth once dailyChlorthalidone 25 mg Tablet Discontinued 50 MG PO Daily October 20, 2018 1:00am October 24, 2018 11:28amStart: 10-20-2018 End: 31-91-6320qeyv 50 mg by mouth once dailyChlorthalidone Discontinued 50 MG PO Daily October 20, 2018 12:00am October 24, 2018 10:28amStart: 08-15-2018 End: 70-94-2745byyr 1 tablet by mouth once dailyChlorthalidone 25 mg tablet Discontinued 25 MG PO Daily October 15, 2018 1:00am October 20, 2018 12:51pmclomiPRAMINE hydrochloride 50 mg oral capsule (12 sources)Tricyclic AntidepressantStart: 11-29-2018 End: 48-80-8942hhlf 1 capsule by mouth once daily at bedtimeClomipramine 50 mg capsule Discontinued 100 MG PO Daily at bedtime 60 November 29, 2018 12:00am September 26, 2023 7:38pmStart: 11-29-2018 End: 49-70-1102lxed 100 mg by mouth once daily at bedtimeClomipramine Discontinued 100 MG PO Daily at bedtime 60 November 28, 2018 11:00pm September 2646:38pmStart: 11-06-2018 End: 75-11-4403oolw 1 capsule by mouth once daily at bedtimeClomipramine 50 mg Capsule Discontinued 150 MG PO Daily at bedtime 42 14 November 06, 2018 1:00am November 22, 2018 7:30pmStart: 11-06-2018 End: 48-73-9650ourh 150 mg by mouth once daily at bedtimeClomipramine Discontinued 150 MG PO Daily at bedtime 42 14 November 06, 2018 12:00am November 22, 20186:30pmStart: 10-14-2018 End: 18-72-7951pqvi 1 capsule by mouth twice dailyClomipramine 25 mg capsule Discontinued 25 MG PO Twice daily October 14, 2018 1:00am October 20, 2018 12:52pmdiphenhydrAMINE hydrochloride 25 mg oral capsule (4 sources)Histamine-1 Receptor AntagonistStart: 10-24-2018 End: 81-38-0715bkfl 2 capsules by mouth at bedtime as needed for sleep Diphenhydramine Hcl 25 mg Capsule Discontinued 50 MG PO Bedtime as needed for sleep 0 October 24, 2018 1:00am November 22, 2018 7:30pmStart: 10-24-2018 End: 37-46-2734nvyx 50 mg by mouth at bedtimeDiphenhydramine Hcl Discontinued 50 MG PO Bedtime 0 October 24, 2018 12:00am November 22, 2018 6:30pmdocusate sodium 50 mg / sennosides, care home 8.6 mg oral tablet (5 sources)Start: 09-26-2023 End: 28-25-0949qztn 2 tablets by mouth in the morningsennosides-docusate sodium (SENOKOT-S) 8.6-50 mg Take 2 tablets by mouth in the morning and 2 tablets before bedtime. 0 09/26/2023 10/15/2023 Discontinued (Therapy completed)Start: 10-24-2018 End: 31-07-5853ibat 1 tablet by mouth twice dailySennosides-Docusate Sodium (Dok Plus) 8.6-50 mg Tablet Discontinued 1 TAB PO Twice daily 0 2018 1:00am November 22, 2018 7:30pmFish Oil 1000 MG Oral Capsule Delayed Release (1 source)Start: 58-01-0771vdmf 2 capsules by mouth once dailyFish Oil 1000 MG Oral Capsule Delayed Release TAKE 2 CAPSULE Daily Quantity: 180 Refills: 3 Ordered: 26-Apr-2023 Bertha Tovar MD Start : 26-Apr-2023 Active fluvoxaMINE maleate 50 mg oral tablet (8 sources)Serotonin Reuptake InhibitorStart: 10-20-2018 End: 63-11-5277mwkd 100 mg by mouth twice dailyFluvoxamine Discontinued 100 MG PO Twice daily October 20, 2018 12:00am October 24, 2018 10:29amStart: 10-14-2018 End: 13-16-3170nxxd 1 tablet by mouth twice dailyFluvoxamine 50 mg Tablet Discontinued 100 MG PO Twice daily October 20, 2018 1:00am October 24, 2018 11:29amfurosemide 20 mg oral tablet (20 sources)Loop DiureticStart: 08-19-2024 End: 38-91-3033gyxl 1 tablet by mouth once dailyfurosemide (LASIX) 20 mg tablet Take 1 tablet (20 mg total) by mouth daily. 90 tablet 1 10/07/2024 04/01/2025 Discontinued (Therapy completed)Start: 08-19-2024 End: 93-64-9836dpbl 1 tablet by mouth every other dayfurosemide (LASIX) 20 mg tablet Take 1 tablet (20 mg total) by mouth every other day. 09/29/2024 Active Start: 09-15-2023 End: 55-10-8253zmhs 1 tablet by mouth once dailyfurosemide (LASIX) 40 mg tablet Indications: Chronic diastolic CHF (congestive heart failure) ([facility]) Take 1 tablet (40 mg total) by mouth daily. 7 tablet 1 09/15/2023 10/15/2023 Discontinued (Therapy completed)gabapentin 300 mg oral capsule (2 sources)Anti-epileptic AgentStart: 11-01-2023 End: 37-93-5898xbfb 1 capsule by mouth three times dailygabapentin (NEURONTIN) 300 mg capsule Indications: Lumbar pain Take 1 capsule (300 mg total) by mouth 3 (three) times a day for 30 days. 90 capsule 3 11/01/2023 11/15/2023 Discontinued (Therapy completed)heparin sodium, porcine 5000 unt/ml injectable solution (15 sources)Unfractionated Heparin, Anti-coagulantStart: 10-06-2023 End: 17-59-4251ecvcbg 5000 [IU] by subcutaneous injection every eight hours Heparin (Porcine) 5,000 unit/mL Solution Discontinued 5000 UNIT SUBCUT Every 8 hours 0 October 06, 2023 1:00am October 06, 2023 2:56pmStart: 10-06-2023 End: 95-92-7606aeaz 5000 [IU] intravenously onceHeparin (Porcine) 5,000 unit/mL Solution Discontinued 4000 UNIT IV-PUSH Once 0 October 06, 2023 1:00am October 06, 2023 2:55pmStart: 10-06-2023 End: 76-59-8445Quzktqt(Porcine) In 0.45% Nacl 25,000 unit/250 mL Parenteral Solution Discontinued 64419 UNIT IV .Y70W34D 0 October 06, 2023 1:00am October 06, 2023 2:55pmStart: 10-06-2023 End: 40-25-8141xisa 4000 [IU] intravenously onceHeparin (Porcine) Discontinued 4000 UNIT IV-PUSH Once 0 October 06, 2023 12:00am October 06, 2023 1:55pm Insulin Aspart U-100 (Novolog Flexpen U-100 Insulin) 100 unit/mL (3 mL) Insulin Pen (3 sources)Start: 10-06-2023 End: 10-05-4862Zimdbhh Aspart U-100 (Novolog Flexpen U-100 Insulin) 100 unit/mL (3 mL) Insulin Pen Discontinued 0 UNIT SUBCUT 3X/Day with meals and bedtime 0 October 06, 2023 1:00am December 16, 2024 10:57am Please contact the information source for Protocol details.Start: 85-23-0219Dfvqxif Aspart U-100 (Novolog Flexpen U-100 Insulin) 100 unit/mL (3 mL) Insulin Pen Active 0 UNIT BEDOYA BCUT 3X/Day with meals and bedtime 0 October 06, 2023 12:00amammonium lactate 120 mg/ml topical cream (10 sources)Start: 06-02-2024 End: 62-28-4185zktwhbwz lactate (Amlactin) 12 % cream Indications: Corns and callosities Apply topically Daily 140g 3 09/01/2024 09/26/2024 Discontinued (Therapy completed)lamoTRIgine 200 mg oral tablet (3 sources)Mood Stabilizer, Anti-epileptic AgentStart: 03-12-2019 End: 25-05-3265juwy 1 tablet by mouth once daily at bedtimelamoTRIgine (LAMICTAL) 200 mg tablet TAKE 1 TABLET BY MOUTH EVERYDAY AT BEDTIME 1 03/12/2019 05/14/2025 Discontinuedlurasidone hydrochloride 40 mg oral tablet (14 sources)Atypical AntipsychoticStart: 11-22-2018 End: 94-67-1296Yjqlqqkxbk (Latuda) 40 mg tablet Discontinued 20 MG PO Daily at 1700 November 22, 2018 12:00am 2018 9:07am Daily with food at 1700 for one week, then discontinue.Start: 67-19-9622yuom 1 tablet by mouth once daily lurasidone (LATUDA) 80 MG TABS tablet Take 1 tablet by mouth Daily with supper 30 tablet 11/13/2018ActiveStart: 10-20-2017 End: 98-71-7885olbb 1 tablet by mouth once dailyLurasidone (Latuda) 40 mg Tablet Discontinued 100 MG PO Daily with supper October 20, 2018 1:00am November 06, 2018 3:31pmStart: 10-20-2017 End: 19-70-5065hdzx 80 mg by mouth at bedtimeLurasidone Discontinued 80 MG PO Bedtime October 20, 2017 12:00am October 20, 2018 11:51am1 ml methylPREDNISolone acetate 40 mg/ml injection (4 sources)CorticosteroidStart: 10-31-2024 End: 35-00-1154wktwuaLUZGAIEgxmkb acetate (DEPO-Medrol) injection 20 mgStart: 10-31-2024 End: 56-26-855730 mg, Intra-articular, Once PRN Procedure, Starting on Sun10/31/24 at 1056, For 1 dose2 ml naloxone hydrochloride 1 mg/ml prefilled syringe (5 sources)Opioid AntagonistStart: 10-06-2023 End: 38-71-0007Grdjberd 1 mg/mL Syringe Discontinued 2 MG IV-PUSH Q2M as needed for Opioid Reversal 0 October 06, 2023 1:00am October 06, 2023 3:11pmStart: 10-06-2023 End: 15-61-4132Qprquqgp Discontinued 2 MG IV-PUSH Q2M 0 October 06, 2023 12:00am October 06, 2023 2:11pmStart: 09-26-2023 End: 46-63-7532Kjhvfpsl Discontinued 1 SPRAY INTRANASAL Q3M September 26, 2023 12:00am October 06, 2023 11:25amNaloxone 4 mg/actuation spray,non-aerosol (1 source)Start: 09-26-2023 End: 85-04-6925Qwaoxkfy 4 mg/actuation spray,non-aerosol Discontinued 1 SPRAY INTRANASAL Q3M as needed for opioid overdose September 26, 2023 1:00am October 06, 2023 12:25pmnebivolol 20 mg oral tablet (8 sources)Start: 08-15-2018 End: 01-93-7209jtio 1 tablet by mouth once dailyNebivolol 20 mg tablet Discontinued 20 MG PO Daily August 15, 2018 1:00am October 14, 2018 1: 11pmStart: 09-11-2017 End: 42-28-3635xiir 2 tablets by mouth once dailyNebivolol (Bystolic) 10 mg Tablet Discontinued 20 MG PO Daily September 11, 2017 1:00am October 20, 2017 6:04pmNIFEdipine 30 mg osmotic 24 hr extended release oral tablet (8 sources)Dihydropyridine Calcium Channel BlockerStart: 09-17-2017 End: 26-34-8140yosa 1 tablet by mouth twice dailyNifedipine 30 mg Tablet Extended Release 24hr Discontinued 30 MG PO Twice daily 60 September 17, 2017 1:00am August 15, 2018 3:28pmStart: 09-11-2017 End: 22-91-5094ukxf 1 tablet by mouth once dailyNifedipine 30 mg Tablet Extended Release Discontinued 30 MG PO Daily September 11, 2017 1:00am September 17, 2017 11:36amOLANZapine 5 mg oral tablet (8 sources)Atypical AntipsychoticStart: 11-29-2018 End: 29-28-1850naww 1 tablet by mouth every six hours as neededOlanzapine 5 mg Tablet Discontinued 5 MG PO Q6H as needed for Agitation November 29, 2018 12:00amSeptember 26, 2023 7:38pmStart: 11-06-2018 End: 73-26-5384spvr 1 tablet by mouth twice dailyOlanzapine 5 mg Tablet Discontinued 5 MG PO Twice daily November 06, 2018 1:00am November 22, 2018 7:30pmolmesartan medoxomil 40 mg oral tablet (8 sources)Angiotensin 2 Receptor BlockerStart: 10-20-2018 End: 87-81-6505ucwl 1 tablet by mouth once dailyOlmesartan 40 mg tablet Discontinued 40 MG PO Daily October 20, 2018 1:00am November 22, 2018 7:30pm Start: 08-15-2018 End: 28-36-0507pbro 1 tablet by mouth once dailyOlmesartan (Benicar) 40 mg Tablet Discontinued 40 MG PO Daily August 15, 2018 1:00am October 14, 2018 1:12pmomeprazole 20 mg delayed release oral capsule (4 sources)Proton Pump InhibitorStart: 10-24-2018 End: 06-60-8809otan 2 capsules by mouth once dailyOmeprazole 20 mg Capsule,Delayed Release(Dr/Ec) Discontinued 40 MG PO Daily October 24, 2018 1:00am November 22, 2018 7:30pmStart: 10-24-2018 End: 50-88-2063hmku 40 mg by mouth once dailyOmeprazole Discontinued 40 MG PO Daily October 24, 2018 12:00am November 22, 2018 6:30pmondansetron 4 mg disintegrating oral tablet (7 sources)Serotonin-3 Receptor AntagonistStart: 10-06-2023 End: 28-98-8492gdlt 1 tablet by mouth every eight hours as needed for nausea and vomitingOndansetron 4 mg Tablet,Disintegrating Discontinued 4 MG PO Every 8 hours as needed for Nausea And Vomiting 0 October 06, 2023 1:00am October 09, 2023 2:51pmStart: 10-24-2018 End: 22-66-0598Usdqdkxhteh Hcl (Zofran) 4 mg tablet Discontinued 4 MG PO 2-3 TIMES PER DAY as needed for nausea and vomiting October 24, 2018 1:00am November 06, 2018 3:52pmoxyCODONE hydrochloride 5 mg oral tablet (7 sources)Opioid AgonistStart: 09-26-2023 End: 66-57-2384mxfILBKYM (ROXICODONE) 5 mg immediate release tablet Indications: Cauda equina compression (CMS-HCC) Take 1-2 tablets (5-10 mg total) by mouth every 6 (six) hours as needed for pain (10mg for severe pain, 5mg for moderate pain). Max Daily Amount: 40 mg 24 tablet 0 09/26/2023 10/15/2023 Discontinued (Therapy completed)Start: 09-26-2023 End: 80-27-3228qhzp 1 tablet by mouth every six hours as needed for pain Oxycodone 5 mg tablet Discontinued 5 MG PO Q6H as needed for pain (scale score 4-6) September 26, 2023 1:00am October 06, 2023 3:10pmStart: 09-26-2023 End: 41-24-9427jcpb 1 tablet by mouth every six hours as needed for pain Oxycodone 10 mg tablet Discontinued 10 MG PO Q6H as needed for pain (scale score 7-10) September 26, 2023 1:00am October 06, 2023 12:25pmOzempic (1 MG/DOSE) 4 MG/3ML Subcutaneous Solution Pen-injector (2 sources)Start: 72-77-5664vpwdle 1 mg by subcutaneous injection every week Ozempic (1 MG/DOSE) 4 MG/3ML Subcutaneous Solution Pen-injector inject as directed once weekly Quantity: 0 Refills: 0 Ordered: 19-Sep-2022 DO Start : 27-Jun-2022 Activepolyethylene glycol 3350 95477 mg powder for oral solution (20 sources)Osmotic LaxativeStart: 09-26-2023 End: 47-74-1279Czjhmvndkyww Glycol 3350 (Miralax) 17 gram/dose powder Discontinued 17 GM PO Daily September 26, 2023 1:00am October 09, 2023 5:36pm predniSONE 20 mg oral tablet (4 sources)Start: 09-12-2024 End: 56-69-4511bvbc 2 tablets by mouth once daily, then take 1 tablet by mouth once daily at mealtimepredniSONE (Deltasone) 20 MG tablet Indications: Traumatic hematoma of right knee, initial encounter Take 2 tablets (40 mg) by mouth Daily for 5 days, THEN 1 tablet (20 mg) Daily for 5 days. Take with food. 15 tablet 09/12/2024 09/26/2024 Discontinued (Therapy completed)propranolol hydrochloride 20 mg oral tablet (10 sources)beta-Adrenergic BlockerStart: 11-13-2018 End: 03-86-4889cusi 1 tablet by mouth twice dailyPropranolol 20 mg tablet Discontinued 20 MG PO Twice daily 60 November 29, 2018 9:10am September 7:39pmQUEtiapine 100 mg oral tablet (5 sources)Atypical Antipsychotic End: 16-77-7066hxwq 2 tablets by mouth once dailyQUEtiapine (SEROquel) 100 mg tablet Take 2 tablets (200 mg total) by mouth nightly. Increase 50 mg until 100mg 7 days increase another 100mg until 200mg and stop. 03/17/2025 Discontinued (Therapy completed)rosuvastatin calcium 5 mg oral tablet (2 sources)HMG-CoA Reductase InhibitorStart: 00-99-6569vyll 1 tablet by mouth once dailyRosuvastatin Calcium 5 MG Oral Tablet TAKE 1 TABLET DAILY. Quantity: 90 Refills: 3 Ordered: 15-Mar-2023 Bertha Tovar MD Start : 15-Mar-2023 Active restartsemaglutide (OZEMPIC) 0.25 mg or 0.5 mg (2 mg/3 mL) pen injector (20 sources)Start: 12-27-2023 End: 85-80-8342szlbamgkxte (OZEMPIC) 0.25 mg or 0.5 mg (2 mg/3 mL) pen injector Indications: Type 2 diabetes mellitus with diabetic peripheral angiopathy without gangrene, with long-term current use of insulin ([facility]) Inject 0.5 mg under the skin every 7 days. 0.5 mg subQ weekly for 4 weeks then increase to 1 mg weekly for 4 weeks, then increase to 2 mg weekly. 3 mL 12/27/2023 06/10/2024 Discontinued (Duplicate Listing)Start: 81-52-4903rvvtprzcuef (OZEMPIC) 0.25 mg or 0.5 mg (2 mg/3 mL) pen injector Indications: Type 2 diabetes mellitus with diabetic peripheral angiopathy without gangrene, with long-term current use of insulin ([facility]) Inject 0.5 mg under the skin every 7 days. 0.5 mg subQ weekly for 4 weeks then increase to 1 mg weekly for 4 weeks, then increase to 2 mg weekly. 3 mL 12/27/2023 Activesemaglutide (OZEMPIC) 1 mg/dose (4 mg/3 mL) pen injector (20 sources)Start: 12-27-2023 End: 05-13-9461dcbpsl 1 mg by subcutaneous injection every week, then inject 1 mg by subcutaneous injection every week, then inject 2 mg by subcutaneous injection every weeksemaglutide (OZEMPIC) 1 mg/dose (4 mg/3 mL) pen injector Indications: Type 2 diabetes mellitus withdiabetic peripheral angiopathy without gangrene, with long-term current use of insulin ([facility]) Inject 1 mg under the skin once a week for 90 days. 1 mg weekly for 4 weeks then increase to 2 mg weekly 3 mL 12/27/2023 03/26/2024 ExpiredStart: 12-27-2023 End: 78-75-3834pkxmnz 1 mg by subcutaneous injection every week, then inject 1 mg by subcutaneous injection every week, then inject 2 mg by subcutaneous injection every weeksemaglutide (OZEMPIC) 1 mg/dose (4 mg/3 mL) pen injector Indications: Type 2 diabetes mellitus withdiabetic peripheral angiopathy without gangrene, with long-term current use of insulin ([facility]) Inject 1 mg under the skin once a week for 90 days. 1 mg weekly for 4 weeks then increase to 2 mg weekly 3 mL 12/27/2023 03/26/2024 ActiveSennosides (Senna Laxative) 8.6 mg Tablet (3 sources)Start: 10-06-2023 End: 02-76-8656tyvm 1 tablet by mouth once daily as neededSennosides (Senna Laxative) 8.6 mg Tablet Discontinued 8.6 MG PO DAILY@12 as needed for If no BM in2 days 0 October 06, 2023 1:00am October 09, 2023 5:36pmStart: 10-06-2023 End: 26-54-7137bxgb 1 tablet by mouth once dailySennosides (Senna Laxative) 8.6 mg Tablet Discontinued 8.6 MG PO DAILY@October 06, 2023 12:00am October 09, 2023 4:36pmStart: 15-74-0292ryrt 1 tablet by mouth once dailySennosides (Senna Laxative) 8.6 mg Tablet Active 8.6 MG PO DAILY@October 06, 2023 12:00amsertraline 50 mg oral tablet (4 sources)Serotonin Reuptake InhibitorStart: 09-17-2017 End: 09-79-6266nyjz 1 tablet by mouth once daily in the morningSertraline 50 mg Tablet Discontinued 50 MG PO Every morning September 17, 2017 1:00am August 15, 2018 3:29pmSodium Chloride 0.9 % (Flush) (3 sources)Start: 10-06-2023 End: 95-56-7918Ryyagk Chloride 0.9 % (Flush) (Bd Posiflush Normal Saline 0.9) Syringe Discontinued 10 ML IV-PUSH PRN as needed for Flush 0 October 06, 2023 1:00am October 06, 2023 2:51pmStart: 10-06-2023 End: 30-62-3924Mkrsqf Chloride 0.9 % (Flush) (Bd Posiflush Normal Saline 0.9) Syringe Discontinued 10 ML IV-PUSH PRN 0 October 06, 2023 12:00am October 06, 2023 1:51pmStart: 33-36-1304Jdvxvv Chloride 0.9 % (Flush) (Bd Posiflush Normal Saline 0.9) Syringe Active 10 ML IV-PUSH PRN 0 October 06, 2023 12:00am tamsulosin hydrochloride 0.4 mg oral capsule (20 sources)alpha-Adrenergic BlockerStart: 11-26-2023 End: 54-61-6572vxcv 2 capsules by mouth at bedtimetamsulosin (FLOMAX) 0.4 mg capsule Indications: History of urinary retention Take 2 pills by mouth prior to bedtime 180 capsule 2 11/26/2023 03/14/2024 Discontinued (Therapy completed) Start: 10-15-2023 End: 18-11-8843gmpy 1 capsule by mouth every twenty-four hours at bedtime tamsulosin (Flomax) 0.4 MG 24 hr capsule Take 0.4 mg by mouth at bedtime 10/15/2023 09/26/2024 Discontinued (Therapy completed)Start: 09-26-2023 End: 88-57-5251ravn 1 capsule by mouth once dailytamsulosin (FLOMAX) 0.4 mg capsule Indications: History of urinary retention Take 1 capsule (0.4 mgtotal) by mouth nightly. 90 capsule 1 10/15/2023 11/26/2023 Discontinued (Reorder) ticagrelor 90 mg oral tablet (20 sources)Start: 10-08-2023 End: 36-31-5999exuc 1 tablet by mouth twice dailyTicagrelor (Brilinta) 90 mg Tablet Discontinued 90 MG PO Twice daily 180 90 October 08, 2023 1:00am December 16, 2024 10:58amUrea (Ure-Na) 15 gram Powder In Packet (4 sources)Start: 10-24-2018 End: 62-76-5964Wogc (Ure-Na) 15 gram Powder In Packet Discontinued 30 GM PO Daily 60 October 24, 2018 12:00am November 03, 2018 1:55pmStart: 10-24-2018 End: 51-59-5733Afwa (Ure-Na) 15 gram Powder In Packet Discontinued 30 GM PO Daily 60 October 24, 2018 1:00am November 03, 2018 2:55pmvilazodone hydrochloride 40 mg oral tablet (5 sources)Start: 03-31-2019 End: 23-77-3899qlca 1 tablet by mouth once daily in the morningVIIBRYD 40 mg TAKE 1 TABLET BY MOUTH EVERY DAY IN THE MORNING 03/31/2019 05/14/2025 DiscontinuedViibryd Activevortioxetine 20 mg oral tablet (20 sources)Start: 11-14-2018 End: 02-28-2578fnlt 1 tablet by mouth once dailyVortioxetine 20 mg tablet Discontinued 20 MG PO Daily November 29, 2018 9:10am September 2647:39pm Start: 10-24-2018 End: 63-75-7714zfrx 1 tablet by mouth once daily in the morningVortioxetine (Trintellix) 10 mg Tablet Discontinued 10 MG PO Every morning October 24, 2018 1:00am November 22, 2018 7:30pmStart: 08-15-2018 End: 36-80-9061bqbd 1 tablet by mouth once dailyVortioxetine (Trintellix) 20 mg Tablet Discontinued 20 MG PO Daily October 20, 2018 1:00am October 24, 2018 11:29amzolpidem tartrate 12.5 mg extended release oral tablet (4 sources)gamma-Aminobutyric Acid-ergic AgonistStart: 10-14-2018 End: 31-54-9956ekay 1 tablet by mouth at bedtimeZolpidem 12.5 mg tablet,ext release multiphase Discontinued 12.5 MG PO Bedtime October 14, 2018 1:00am October 20, 2018 12:52pm Problems Active Problems Problem ClassificationProblemDateDocumented DateEpisodic/ChronicAcquired foot deformities (4 sources)Hammer toe; Translations: [Other hammer toe(s) (acquired), left foot] 62-12-1527CmkdguhGjdjr myocardial infarction (20 sources)Acute myocardial infarction; Translations: [Acute myocardial infarction, unspecified]Onset: 602693-58-5826AwmrxbuHfnuxnyvgnbrxd/social admission (5 sources)Other reduced mobility; Translations: [Impaired mobility and activities of daily living]39-10-2665LladhelqRmxwhpv disorders (20 sources)Generalized anxiety disorder; Translations: [Generalized anxiety disorder]Onset: 985261-31-6758EfofxpyNrrdeh (1 source)Unspecified asthma, uncomplicated; Translations: [UNSPECIFIED ASTHMA UNCOMPLICATED]Onset: 01-74-2984WofqfapYdjgivuel-deficit, conduct, and disruptive behavior disorders (2 sources)Other symptoms and signs involving appearance and behavior; Translations: [Other symptoms and signsinvolving appearance and behavior]Onset: 13-33-8670XhosgqauIyqmjvna (20 sources)Nuclear senile cataract; Translations: [Age-related nuclear cataract, unspecified eye]Onset: 719257-86-5220HufsxemOvtjear ulcer of skin (7 sources)Non-pressure chronic ulcer of other part of right foot with fat layer exposed; Translations: [Ulcerof other part of foot]51-45-3225GhlczgdTzfxvvtesd heart failure; nonhypertensive (20 sources)Chronic diastolic heart failure; Translations: [Chronic diastolic (congestive) heart failure]Onset: 931181-05-9456GenbiveZpznohck atherosclerosis and other heart disease (20 sources)Other forms of angina pectoris; Translations: [Atherosclerotic heart disease of [place] coronary artery without angina pectoris]Onset: 10-21-2008 40-60-0378XvzirhnNpuzulcm, dementia, and amnestic and other cognitive disorders (9 sources)Dementia with behavioral disturbance; Translations: [Dementia with behavioral disturbance]Onset: 780826-82-4835JsducabWxvyoenx mellitus with complications (20 sources)Autonomic neuropathy due to type 2 diabetes mellitus; Translations: [Type 2 diabetes mellitus with diabetic autonomic (poly)neuropathy]Onset: 667472-85-7982LmfndubSjelrnsg mellitus without complication (20 sources)Type 2 diabetes mellitus without complications; Translations: [Diabetes mellitus]Onset: 07-09-2006 Resolved: 15-30-2050LtwwsaiTyrmktmt of mouth; excluding dental (2 sources)Glossopyrosis ; Translations: [Glossodynia]Onset: 06-19-2025 35-55-2977FoaklemqTcgykfzh of white blood cells (4 sources)Leukocytosis; Translations: [Elevated white blood cell count, unspecified]20-23-2365YgcqievPprxoylag of lipid metabolism (20 sources)Hyperlipidemia, unspecified; Translations: [Hyperlipidemia]Onset: 07-09-2006 Resolved: 937016-05-3149TtalrayM Codes: Fall (2 sources)FallOnset: 45-35-0455Vqkleccwlf disorders (20 sources)Gastroesophageal reflux disease; Translations: [Esophageal reflux] Onset: 434591-68-5316GktguaeSwjdxqaou hypertension (20 sources)Essential (primary) hypertension; Translations: [Hypertensive disorder]Onset: 583164-43-1700UlppdiiLtdidtombtqqr symptoms and ill- defined conditions (3 sources)Urinary incontinence; Translations: [Other specified urinary incontinence]Onset: 791953-40-4703HctkjxfEemuffsx; including migraine (4 sources)Headache; Translations: [Headache]51-97-3858GeyiofuxCruvplomgpgm with complications and secondary hypertension (13 sources)Malignant hypertension; Translations: [Hypertensive urgency]Onset: 835938-00-3407ChnuiuzOcyaqcpgbjrsd mental health disorders (8 sources)Psychophysiologic insomnia; Translations: [Psychophysiologic insomnia]ChronicMood disorders (20 sources)Major depressive disorder, single episode, severe without psychotic features; Translations: [Depressive disorder]Onset: 193382-12-0978Pwclrsk Mycoses (8 sources)Onychomycosis due to dermatophyte ; Translations: [Tinea unguium] 26-80-8631LnarzdskDwkrkyl system congenital anomalies (1 source)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; Translations: [ARNOLD-CHIARI W/O SPINA BIFIDA/HC]Onset: 11-61-9379Cjyjuju Nutritional deficiencies (20 sources)Vitamin D deficiency; Translations: [Vitamin D deficiency, unspecified]Onset: 112814-58-5345QfuyauxWguuwebbsmyaha (20 sources)Osteoarthritis of right knee joint; Translations: [Unilateral primary osteoarthritis, right knee]Onset: 150331-96-8567UezhpahIepud aftercare (2 sources)Long-term current use of drug therapy; Translations: [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/antiplatelets]89-95-1217WqikvirfWzmkr aftercare (1 source)group home (current) use of antithrombotics/antiplatelets; Translations: [group home (current) use ofantithrombotics/antiplatelets]Onset: 96-17-2571VfgsrbsuRwmxv and unspecified benign neoplasm (1 source)History of polyp of colon; Translations: [History of colon polyps] 38-83-7526HcxrhvpnIhfey connective tissue disease (20 sources)History of total knee arthroplasty; Translations: [Presence of right artificial knee joint]Onset: 969849-77-1983RvroyllBwngi connective tissue disease (3 sources)Rotator cuff arthropathy of right shoulder; Translations: [Unspecified rotator cuff tear or ruptureof right shoulder, not specified as traumatic]12-14-3427EfvsosirNgcqf connective tissue disease (1 source)History of lumbar fusion; Translations: [Arthrodesis status]03-24-2025 EpisodicOther connective tissue disease (1 source)Arthrodesis status; Translations: [Arthrodesis status]Onset: 12-06-4142CzwysswbLjhck diseases of veins and lymphatics (1 source)Stasis dermatitis; Translations: [Venous insufficiency (chronic) (peripheral)]39-36-9364SxqjkfvqBzagk diseases of veins and lymphatics (1 source)Venous insufficiency (chronic) (peripheral); Translations: [Venous insufficiency (chronic) (peripheral)]Onset: 42-74-2463OfdyqyhyEiikw gastrointestinal disorders (2 sources)Incontinence of feces; Translations: [Full incontinence of feces] 35-62-3966UqkqfpikLjoze hereditary and degenerative nervous system conditions (6 sources)Mild cognitive impairment, so stated; Translations: [MILD COGNITIVE IMPAIRMENT SO STATED]Onset: 65-90-1507WksgpavMagdy hereditary and degenerative nervous system conditions (20 sources)Impaired cognition; Translations: [Mild cognitive impairment, so stated]Onset: 632065-69-1935GugabhuGhsoq lower respiratory disease (1 source)Cough; Translations: [Cough, unspecified type]22-29-3730OhzafxyqRrcrz lower respiratory disease (2 sources)Shortness of breath; Translations: [Shortness of breath]Onset: 42-69-8042VmsbalxyTgjdx nervous system disorders (4 sources)Poor concentration; Translations: [Attention and concentration deficit]46-70-8534NrbbuerUtalq nervous system disorders (1 source)Other chronic pain; Translations: [Other chronic pain]Onset: 09-41-2434BlbgvqwHvijw nervous system disorders (10 sources)Cognitive deficit in communication skills; Translations: [Cognitive communication deficit]Onset: 534010-97-0470SvnhlbwExgjj nervous system disorders (5 sources)Pseudodementia; Translations: [Other symptoms and signs involving cognitive functions and awareness]65-33-1826MecbgnayOzmkz nervous system disorders (3 sources)Postoperative pain ; Translations: [Other acute postprocedural pain] 13-04-0760ZlmhchhpOwqek nervous system disorders (2 sources)Other acute postprocedural pain; Translations: [Other acute postoperative pain]54-48-7890JqblelfiNuxmn nervous system disorders (4 sources)Numbness of lower limb ; Translations: [Anesthesia of skin]11-06-2023 EpisodicOther nervous system disorders (1 source)Impaired twimejnzw78-22-5013EemrfpkgSogzu nervous system disorders (1 source)Anesthesia of skin; Translations: [Anesthesia of skin]Onset: 84-34-7666QkejnvvcUfhkm non-traumatic joint disorders (2 sources)Arthritis of left acromioclavicular bfbye99-65-1797OxbjbuiAhjzn non- traumatic joint disorders (4 sources)Pain in right knee; Translations: [Pain in joint, lower leg] 61-80-9182BuorqbljCbljj non-traumatic joint disorders (4 sources)Hip pain; Translations: [Pain in left hip]38-44-6640UnuxqwonCjvbv non-traumatic joint disorders (2 sources)Hip stiff; Translations: [Stiffness of unspecified hip, not elsewhere classified]74-53-9396BztmnvkkBiycx non-traumatic joint disorders (4 sources)Pain in right shoulder; Translations: [Pain in joint, shoulder region]62-46-1386JkcaxwleXpfgo non-traumatic joint disorders (2 sources)Pain in left shoulder; Translations: [Pain in joint, shoulder region] 98-70-0530VuqxsdymIlxrk nutritional; endocrine; and metabolic disorders (2 sources)Obesity; Translations: [Obesity, unspecified]ChronicOther nutritional; endocrine; and metabolic disorders (20 sources)Body mass index 30+ - obesity; Translations: [Obesity, unspecified] Onset: 090202-93-5405EdvrnrjUtiib nutritional; endocrine; and metabolic disorders (20 sources)Obese class II; Translations: [Obesity, Class II, BMI 35-39.9]Onset: 523166-06-9525MlzsrvqOzdoo nutritional; endocrine; and metabolic disorders (14 sources)Morbid obesity; Translations: [Morbid (severe) obesity due to excess calories]Onset: 933742-68-8004QnbfynlTktzy nutritional; endocrine; and metabolic disorders (2 sources)Body mass index (BMI) 35.0-35.9, adult; Translations: [Body mass index (BMI) 35.0-35.9, adult]Onset: 62-89-8084NsphtpnSnvxb nutritional; endocrine; and metabolic disorders (2 sources)Body mass index (BMI) 32.0-32.9, adult; Translations: [Body mass index (BMI) 32.0-32.9, adult]Onset: 52-27-2464UtlczybCsuep nutritional; endocrine; and metabolic disorders (1 source)Morbid (severe) obesity due to excess calories; Translations: [Morbid (severe) obesity due to excess calories]Onset: 86-21-7168HisyeddZopwt skin disorders (9 sources)Callosity; Translations: [Corns and callosities]22-49-2639Tcxhbbqx Other skin disorders (6 sources)Dystrophia unguium; Translations: [Nail dystrophy]80-44-1458Xzerujka Phlebitis; thrombophlebitis and thromboembolism (4 sources)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; Translations: [CHR EMB THROM UNS DV RT DIST LW EXT] Onset: 21-77-5858SoysrngWxhmcyohs (except that caused by tuberculosis or sexually transmitted disease) (4 sources)Pneumonia; Translations: [Pneumonia, unspecified organism]10-20-2018 EpisodicResidual codes; unclassified (20 sources)Obstructive sleep apnea syndrome; Translations: [Obstructive sleep apnea (adult) (pediatric)]Onset: 058868-71-8133ZbgtymiZlmlehba codes; unclassified (1 source)Obstructive sleep apnea (adult) (pediatric)ChronicResidual codes; unclassified (20 sources)Sleep apnea; Translations: [Sleep apnea, unspecified]Onset: 889101-67-0448WzgamfrYhkmsodz codes; unclassified (1 source)Restlessness and agitation; Translations: [Restlessness and agitation] Onset: 39-34-5098XbuqolmZquhtazc codes; unclassified (4 sources)Edema; Translations: [Edema, unspecified]84-24-4554FuvmhyptHkksiyrk codes; unclassified (4 sources)History of lumbar laminectomy; Translations: [Other specified postprocedural states]03-36-5564HfwhfzasRskcugpx codes; unclassified (2 sources)Other specified postprocedural states; Translations: [Other postprocedural status]15-76-4382LayqoixrFdplnaxs codes; unclassified (2 sources)Bilateral lower limb edema; Translations: [Localized edema]08-26-2024 EpisodicResidual codes; unclassified (1 source)Localized edema; Translations: [Localized edema]Onset: 08-26-2024 EpisodicSpondylosis; intervertebral disc disorders; other back problems (4 sources)Spondylosis without myelopathy or radiculopathy, cervical region; Translations: [SPONDYLS W/O MYELO-/RADICULOP CERV]Onset: 43-84-3977Jxzcnyv Suicide and intentional self-inflicted injury (4 sources)Suicidal thoughts; Translations: [Suicidal ideations]09-11-2017 EpisodicSuperficial injury; contusion (7 sources)Hematoma of right knee region; Translations: [Contusion of right knee, initial encounter]15-86-4123XlxhxfzaLdixbbt disorders (1 source)Nontoxic single thyroid nodule; Translations: [NONTOXIC SINGLE THYROID NODULE]Onset: 68-10-7224RsbftucUhksopxhmesc (4 sources)CONTACT W/AND (SUSP) EXPOS COVID-19; Translations: [CONTACT W/AND (SUSP) EXPOS COVID-19]Onset: 54-28-9118Odanwsqubbzv (2 sources)COUGH, UNSPECIFIED; Translations: [COUGH, UNSPECIFIED]Onset: 51-05-1728Fczbjpsqokyu (1 source)Cough, unspecified; Translations: [Cough, unspecified]Onset: 07-77-0921Tjgrshcdqfmn (1 source)Personal history of colon polyps, unspecified; Translations: [Personal history of colon polyps, unspecified]Onset: 07-38-6631Dreppkvpsgni (1 source)Low back pain, unspecified; Translations: [Low back pain, unspecified] Onset: 42-52-2020Cmfkrcdqancj (1 source)Medical ProblemOnset: 39-47-3808Blettzpmwivp (1 source)neck/back pain, new fecal incontinence, back surgery in September 2023 Onset: 27-13-6189Xsobxjsfedvd (4 sources)Autogenerated ProblemOnset: 161846-27-5198Mvcsmqwwixqj (1 source)Other constipation [K59.09] - PrimaryOnset: 47-82-5573Wgbnbxtskixu (1 source)New PatientOnset: 54-72-2656Gammdnmqoyca (1 source)History of lumbar -01-0795 Past or Other Problems Problem ClassificationProblemDateDocumented DateEpisodic/ChronicAbdominal pain (13 sources)Abdominal pain; Translations: [Unspecified abdominal pain]Onset: 618495-90-6497OcmmbmhwVdhduxw tract disease (20 sources)Gallstone; Translations: [Calculus of gallbladder without cholecystitis without obstruction]Onset: 420932-75-4982RhztzssbSweqayr obstructive pulmonary disease and bronchiectasis (1 source)Bronchitis, not specified as acute or chronic; Translations: [BRONCHITIS NOT SPEC ACUTE/CHRON]Onset: 83-26-1687JvkntcbrSppgyczvpx associated with dizziness or vertigo (1 source)Dizziness and giddiness; Translations: [Dizziness and giddiness]Onset: 00-41-9234QwfpqvruFkqrqput atherosclerosis and other heart disease (5 sources)Presence of aortocoronary bypass graft; Translations: [Personal history of surgery to heart and great vessels, presenting hazards to health] Onset: 185591-38-0392HybvnmcwFwsiiuuecj and other anemia (20 sources)Anemia; Translations: [Anemia, unspecified]Onset: 11-16-2022 Resolved: 469575-48-3839SzhilrceQzvfzqyb mellitus without complication (12 sources)Prediabetes; Translations: [Prediabetes]Onset: EpisodicE Codes: Fall (1 source)Unspecified fall, initial encounter; Translations: [Unspecified fall, initial encounter]Onset: 33-71-9636LchijyvhDmwxg of unknown origin (1 source)Fever, unspecified; Translations: [FEVER UNSPECIFIED]Onset: 12-20-2021 EpisodicFluid and electrolyte disorders (11 sources)Hyponatremia; Translations: [Hypo-osmolality and hyponatremia]Onset: 10-10-2008 Resolved: 287015-75-0941FwcgecdpFobesglgzdbuq symptoms and ill-defined conditions (20 sources)Retention of urine; Translations: [Retention of urine, unspecified] Onset: 931809-51-5052WqqbgnwbByncdlz and fatigue (20 sources)Left hemiparesis; Translations: [Weakness]Onset: 06-28-2011 94-94-0620CnaifiazZzuq disorders (20 sources)Mood disordersOnset: 06-10-2024 Resolved: Nausea and vomiting (3 sources)Postoperative nausea and vomiting; Translations: [Nausea with vomiting, unspecified]Onset: 04-12-2020 Resolved: 760797-82-7177XibtofurKfgzlcvlhhs chest pain (1 source)Chest pain, unspecified; Translations: [Chest pain, unspecified]Onset: 27-34-2330MhxxwpayTgwlnnppsvp deficiencies (2 sources)Cobalamin deficiency; Translations: [Deficiency of other specified B group vitamins]Onset: 440310-74-8755OviaxidtRacwe aftercare (4 sources)Other long-term (current) drug therapy; Translations: [OTH REVERBERATORY SKIMMER CURRENT DRUG THERAPY]Onset: 82-01-3519SigjvmuyWggcx aftercare (1 source)Drug therapy finding; Translations: [Other computer terminal operator (current) drug therapy]31-80-5244RnvtewwyOndha aftercare (5 sources)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; Translations: [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]Onset: 23-56-6688IrezkkphAlmmv circulatory disease (3 sources)Low blood pressure; Translations: [Hypotension, unspecified]Onset: 10-10-2008 Resolved: 159126-22-8419UqbccgbxEbioo connective tissue disease (20 sources)Muscle weakness of limb; Translations: [Other symptoms and signs involving the musculoskeletal system]Onset: 661716-51-2667EpwmywswJfqbz connective tissue disease (1 source)Disorder of rotator cuff; Translations: [Unspecified disorder of synovium and tendon, left shoulder]26-05-4656SheeoitjCosii connective tissue disease (9 sources)Tear of right rotator cuff; Translations: [Unspecified rotator cuff tear or rupture of right shoulder, not specified as traumatic]Onset: 03-09-2025 65-12-2479RfmhijhvLaxmq gastrointestinal disorders (20 sources)Constipation; Translations: [Constipation, unspecified]Onset: 979114-71-6047AnbpchelHjuoi gastrointestinal disorders (12 sources)Heartburn; Translations: [Heartburn]Onset: EpisodicOther gastrointestinal disorders (1 source)Other constipation; Translations: [Other constipation]Onset: 65-78-4620TqnhyzcvZdaxk gastrointestinal disorders (1 source)Full incontinence of feces; Translations: [Full incontinence of feces] Onset: 60-91-1074FdtxirbnGhnfj gastrointestinal disorders (1 source)Constipation, unspecified; Translations: [Constipation, unspecified] Onset: 75-53-6702CzqafhqgXtmrb inflammatory condition of skin (3 sources)Erythematous condition, unspecified; Translations: [ERYTHEMATOUS CONDITION UNSPECIFIED]Onset: 42-39-1333VkvhbhkwRmrrz injuries and conditions due to external causes (12 sources)Injury of rotator cuff; Translations: [Unspecified injury of muscle(s) and tendon(s) of the rotatorcuff of unspecified shoulder, initial encounter]Onset: 913923-43-7738UfgoehmkUdbbl injuries and conditions due to external causes (1 source)Unspecified multiple injuries, initial encounter; Translations: [Unspecified multiple injuries, initial encounter]Onset: 10-50-4252OhwjbuyuYjwyc lower respiratory disease (12 sources)Chronic cough; Translations: [Chronic cough]Onset: 11-07-2012 32-69-3866TezxhytxHbaez lower respiratory disease (14 sources)Dyspnea; Translations: [Dyspnea, unspecified]Onset: 08-01-2016 96-96-5432UdapdewuLtycp lower respiratory disease (1 source)Dyspnea on exertion; Translations: [Other forms of dyspnea]12-02-2023 EpisodicOther nervous system disorders (8 sources)Abnormal gait; Translations: [Unspecified abnormalities of gait and mobility]Onset: 967599-60-5788ZezlvbraJeeap nervous system disorders (20 sources)Sensory symptoms; Translations: [Paresthesia of skin]Onset: 233271-53-5354HfugcujbXpeio nervous system disorders (1 source)Other symptoms and signs involving cognitive functions and awareness; Translations: [Other symptomsand signs involving cognitive functions and awareness]Onset: 50-68-1064QjbmtwisUsbiz nervous system disorders (1 source)Unspecified abnormalities of gait and mobility; Translations: [Unspecified abnormalities of gait and mobility]Onset: 40-08-2645VwhxmjwxVacno nervous system disorders (1 source)Other abnormalities of gait and mobility; Translations: [Other abnormalities of gait and mobility]Onset: 44-93-4938OsuyllztPwflu skin disorders (4 sources)Localized swelling, mass and lump, right lower limb; Translations: [LOC SWELL MASS LUMP RT LOWER LIMB]Onset: 05-34-7457FqwjhqumRblzy skin disorders (12 sources)Skin tag; Translations: [Other hypertrophic disorders of the skin] Onset: 026436-70-8784JztlfxatTnzjc upper respiratory disease (20 sources)Granuloma of vocal cords; Translations: [Other diseases of vocal cords]Onset: 607108-10-2922BzfpmwnlBcydmxggg (20 sources)Compression of cauda equina; Translations: [Cauda equina syndrome] Onset: 09-20-2023 Resolved: 117639-81-7269MhrkswzHswfaowdb; thrombophlebitis and thromboembolism (1 source)Personal history of other venous thrombosis and embolism; Translations: [PERS HX OTH VENOUS THROMBOSIS AND EMBO]Onset: 10-00-1611Geylnkig Residual codes; unclassified (15 sources)Amnesia; Translations: [Other amnesia]Onset: EpisodicResidual codes; unclassified (20 sources)Family history of ischemic heart disease; Translations: [Family history of ischemic heart disease and other diseases of the circulatory system] Onset: 250099-78-2766DtwuuxayEyoendcg codes; unclassified (10 sources)Never smoked tobacco; Translations: [Other specified health status] Onset: 201838-57-9732MlvtthdmPgebwrll codes; unclassified (3 sources)H/O: urinary disease; Translations: [Personal history of other specified conditions]64-93-2952XkyvlauvEkcrjwbl codes; unclassified (1 source)Cauda equina syndrome suspected; Translations: [Other general symptoms and signs]69-19-8981FipxsfwlRnztyonv codes; unclassified (9 sources)Insomnia; Translations: [Insomnia, unspecified]Onset: 07-26-2024 90-91-7634HyhdhcpbQdnujazp codes; unclassified (5 sources)Other specified health status; Translations: [Other specified conditions influencing health status]Onset: 05-76-8272IpdldgmqWkquilpc codes; unclassified (1 source)Other amnesia; Translations: [Memory loss]Onset: 79-64-6740Pgabcihf Retinal detachments; defects; vascular occlusion; and retinopathy (20 sources)Retinal detachment; Translations: [Serous retinal detachment, unspecified eye]Onset: 872368-82-1135QjoomlhoOeaf and subcutaneous tissue infections (3 sources)Cellulitis of right lower limb; Translations: [Cellulitis of right foot]Onset: 089136-83-1045BbumqyazBundfhthlzy; intervertebral disc disorders; other back problems (20 sources)Spinal stenosis of lumbar region; Translations: [Spinal stenosis, lumbar region without neurogenic claudication]Onset: EpisodicSprains and strains (20 sources)Strain of muscle(s) and tendon(s) of the rotator cuff of right shoulder, initial encounter; Translations: [Rotator cuff (capsule) sprain]Onset: 10-03-2022 Resolved: 501979-23-1455HoqcxvteHwaxykbhcsdm (3 sources)Encounter for screening for malignant neoplasm of prostate; Translations: [Patient encounter status]Onset: 070677-08-9230Bcutghzy Unclassified (1 source)CONTACT W/AND (SUSP) EXPOS COVID-19; Translations: [CONTACT W/AND (SUSP) EXPOS COVID-19]Onset: 86-89-8400Isyjiqnkvoos (2 sources)COUGH, UNSPECIFIED; Translations: [COUGH, UNSPECIFIED]Onset: 56-04-4301Aeihzuengqli (2 sources)Never smoked tobacco; Translations: [Never a smoker]Unclassified (4 sources)Onset: 10-17-2023 Resolved: 225131-49-1788Zfvuztcujlmu (2 sources)Arthritis of left shoulder hhuvgl37-47-4748 Results Test NameValueInterpretationReference RangeFacilityFOLATEon 44-63-8477BKKNP ACID 19.3 ng/mLNormal>5.8ProMediLoma Linda University Medical CenterComment on above:Performed By: #### [id number] #### [facility] ([id number]) [address] [place] [address], [place] [address] #### 2345-7, 06098-0, LIVR, 4086-5, CBCA, 2132-9 #### [facility] ([id number]) [address], [address] [place], [place] [address]HOQWYKWellmont [facility] [phone] HEALTHHNO ID: [id number] Author: RAGHU WRIGHT RT(R) Service: Radiology Author Type: Technologist Type: Allied Health Filed: 06/13/2025 16:16 Note Text: Radiology Service Progress Note PATIENT NAME: Tom Khan DATE OF SERVICE: June 13, 2025 TIME: 4:16 PM PATIENT IDENTITY VERIFICATION COMPLETED USING TWO (2) IDENTIFIERS: Name and Date of confirmed by patient verbally and Name and Date of confirmed by identification band. FALL SCREENING: Has the patient had 2 falls in the last year or 1 fall with injury or currently using an Ambulatory Assistive Device (Walker, Cane, Wheelchair, Crutches, etc.)? No PATIENT GENDER DATA: Assigned male at PATIENT RELEVANT IMPLANT DATA REVIEWED: Yes PATIENT PRESENTS WITH AN IMPLANTABLE OR ATTACHED MACHINIST SUPERVISOR: No RADIOLOGY DEPARTMENT: MR; Exam(s) Completed: Head: Routine Brain. Anesthesia: No. Aromatherapy Administered: No PERIPHERAL IV DATA: Not applicable SIGNED BY: RT Ron(R) June 13, 2025 4:16 [facility] [id number] 3D BRAIN QUANT* * *Final Report* * * DATE OF EXAM: Jun 13 2025 4:17PM [facility] - MRI 3D BRAIN QUANT / [...] dementia protocol and 3-D post-processing using the NeuroQuant software at an independent workstation with concurrent [...] to 1.7; Clif 2008; also Emmanuel 2010). IMPRESSION: * No evidence of an acute [...] = Focal Lesions 2 = Beginning of [place] 3 = Diffuse Involvement of Entire Region Basal Ganglia Lesions: 0 = No Lesions 1 = 1 Focal Lesion (>5mm) 2 = >1 Focal Lesion (>5mm) 3 = Confluent Lesions Emmanuel Alberts et al. The clinical use of structural [...] hippocampal volume (% of intracranial volume). See result (more content not included)...[facility] BRAIN W QUANT WO IVCONon 07-01-0871RAC BRAIN W QUANT WO IVCON* * *Final Report* * * DATE OF EXAM: Jun 13 2025 4:17PM [facility] - MRI BRAIN W QUANT WO [...] dementia protocol and 3-D post-processing using the Guroo software at an independent workstation with concurrent [...] to 1.7; Clif 2008; also Emmanuel 2010). IMPRESSION: * No evidence of an acute [...] = Focal Lesions 2 = Beginning of [place] 3 = Diffuse Involvement of Entire Region [...] charts measure total hippocampal volume (% of intra (more content not included)...[facility] 08-07-3747YYTZ Telephone (PSYRL) TOM KHAN ([id number]) 1955 M [facility] Date Time Provider Department 05/28/25 RODRIGUE JJ PSYRL During your visit today, we recorded the following information about you: Allergies As of Date: 05/28/2025 (No Known Allergies) Date Reviewed: 05/14/2025 Reviewed by: Sully Hirsch LPN - Fully Assessed Prescriptions as of 05/28/2025 - insulin lispro (ADMELOG SOLOSTAR U-100 INSULIN) 100 unit/mL Inject 4 Units subcutaneously three times a day before meals. - TOUJEO MAX U-300 SOLOSTAR 300 unit/mL (3 mL) inpn Inject 42 Units subcutaneously daily at bedtime. - semaglutide (OZEMPIC) 0.25 mg or 0.5 mg(2 mg/1.5 mL) pen Inject 2 mg subcutaneously one time a week. - JARDIANCE 25 mg tablet Take 25 mg by mouth daily with breakfast. - clopidogrel (PLAVIX) 75 mg tablet Take 75 mg by mouth once daily. - aspirin, enteric coated (ASPIRIN, ENTERIC COATED) 81 mg EC tablet Take 81 mg by mouth once daily. - atorvastatin (LIPITOR) 40 mg tablet Take 40 mg by mouth once daily. - carvedilol (COREG) 12.5 mg tablet Take 12.5 mg by mouth two times a day. - losartan (COZAAR) 25 mg tablet Take 25 mg by mouth once daily. - spironolactone (ALDACTONE) 25 mg tablet Take 12.5 mg by mouth once daily. - nitroglycerin sublingual (NITROQUICK) 0.4 mg SL tablet Dissolve 0.4 mg under the tongue every 5 minutes as needed. - DULoxetine DR (CYMBALTA) 60 mg capsule Take 60 mg by mouth once daily. - mirtazapine (REMERON) 15 mg tablet Take 15 mg by mouth daily at bedtime. - busPIRone (BUSPAR) 10 mg tablet Take 10 mg by mouth two times a day. - divalproex sprinkle (DEPAKOTE SPRINKLES) 125 mg capsule Take 250 mg by mouth two times a day. - risperiDONE (RISPERDAL) 1 mg tablet Take 0.5 mg by mouth once daily. - LORazepam (ATIVAN) 0.5 mg Take 0.5 mg by mouth every 6 hours as needed. - cyanocobalamin (VITAMIN B-12) 1,000 mcg tab Take 1 tablet by mouth once daily. - cholecalciferol (VITAMIN D-3) 5,000 unit tab Take 5,000 Units by mouth once daily. - melatonin 10 mg cap Take 1 capsule by mouth daily at bedtime. - omega-3 DHA-EPA (FISH OIL) 1,200 (144-216) mg capsule Take 1 capsule by mouth daily with breakfast. - pantoprazole DR (PROTONIX) 20 mg tablet Take 1 tablet by mouth once daily for 14 days. - semaglutide (OZEMPIC SUBCUTANEOUS) Inject 1 Dose subcutaneously one time a week. 50 mg weekly - MEDICATION, NON-DATABASE supplements - mupirocin (BACTROBAN) 2 % ointment Apply 0.5 inch with cotton swab (Q-tip) to each nostril in the morning and evening for 5 days prior to and including day of surgery. 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] 11/07/2012 Chronic cough [R05.3] 11/07/2012 Esophageal stricture [K22.2] 11/07/2012 Heartburn symptom [R12] 11/07/2012 Rotator cuff injury [S46.009A] 02/14/2013 Skin tag [L91.8] 01/29/2015 Dyspnea, unspecified [R06.00] 08/01/2016 Cataract, nuclear sclerotic senile, right [H25.*08/14/2018 Unspecified sleep apnea [G47.30] 10/2008 Primary osteoarthritis of right knee [M17.11] PONV (postoperative nausea and vomiting) [R11.2*04/12/2020 04/13/2020 S/P total knee arthroplasty, right [Z96.651] 04/12/2020 Obesity, Class II, BMI 35-39.9 [E66.812] 04/13/2020 MCI (mild cognitive impairment) [G31.84] 02/25/2021 Memory loss [R41.3] 03/23/2021 Cognitive communication deficit [R41.841] 03/23/2021 Encounter Status:C (more content not included)...NormalLutheran HospitalCB WITH AUTO DIFFERENTIALon 97-18-2483SCLAIZTXH ABSOLUTE COUNT (10*3/UL) BY AUTOMATED COUNT0.0 10*3/uLNormal0.0-0.2[facility] UclaComment on above: Performed By: #### 04045-0 #### [facility] ([id number]) [address] [place] [address], [place] [address] #### 2345-7, 64574-4, LIVR, 4086-5, CBCA, 2132-9 #### [facility] ([id number]) [address], [address] [place], [place] [address]NODIHVVEL RELATIVE PERCENT BY AUTOMATED COUNT0.4 %Normal [facility] HospitalComment on above:Performed By: #### 52475-7 #### [facility] ([id number]) [address] [place] [address] #### 2345-7, 93327-9, LIVR, 4086-5, CBCA, 2132-05 #### [facility] ([id number]) [address], [address] [place], [place] [address]UZLIDQQNOOK DIFFERENTIAL TYPEAUTOMATED DIFFERENTIALNormal [facility] HospitalComment on above:Performed By: #### [id number] #### [facility] ([id number]) [address] [place] [address] #### 2345-7, 04123-8, LIVR, 4086-5, CBCA, 2132-05 #### [facility] ([id number]) [address], [address] [place], [place] [address]Eipnfxlsmeh (Bld) [#/Vol]0.2 10*3/uLNormal0.0-0.4ProBluffton Hospitalca [facility] Hospital UclaComment on above:Performed By: #### 69463-4 #### [facility] ([id number]) [address] [place] [address] #### 2345-7, 33112-4, LIVR, 4086-5, CBCA, 2132-05 #### [facility] ([id number]) [address], [address] [place], [place] [address]IUWPETZLBKT RELATIVE PERCENT BY AUTOMATED COUNT2.6 %Normal [facility] HospitalComment on above:Performed By: #### 83026-2 #### [facility] [facility] ([id number]) [address] [place] [address] #### 2345-7, 74148-8, LIVR, 4086-5, CBCA, 2132-05 #### [facility] ([id number]) [address], [address] [place], [place] [address]Hgloozhxdgk distribution width (RBC) [Ratio]15.6 %High11.5-15 ProMBellwood General HospitalComment on above:Performed By: #### 59226-2 #### [facility] ([id number]) [address] [place] [address] #### 2345-7, 77110-2, LIVR, 4086-5, CBCA, 2132-05 #### [facility] ([id number]) [address], [address] [place], [place] [address]Wlufdwtdzs (Bld) [Volume fraction]44.2 %Flkcem09-65OiyGnsnpfMethodist Texsan HospitalComment on above:Performed By: #### 86291-3 #### [facility] ([id number]) [address] [place] [address] #### 2345-7, 99593-2, LIVR, 408-5, CBCA, 2132-05 #### [facility] ([id number]) [address], [address] [place], [place] [address]Yqlhnijpqp (Bld) [Mass/Vol]14.8 g/nXAhkhon42-08LmjSysgmcMethodist Texsan HospitalComment on above:Performed By: #### 58888-1 #### [facility] ([id number]) [address] [place] [address] #### 2345-7, 31442-9, LIVR, 4086-5, CBCA, 2132-05 #### [facility] ([id number]) [address], [address] [place], [place] [address]MEEGOQOWNHY ABSOLUTE COUNT (10*3/UL) BY AUTOMATED COUNT1.2 10*3/uLNormal1.0-3.5ProMedica [facility] Hospital UclaComment on above:Performed By: #### 42428-3 #### [facility] ([id number]) [address] [place] [address] #### 2345-7, 39157-0, LIVR, 4086-5, CBCA, 2132-05 #### [facility] ([id number]) [address], [address] [place], [place] [address]ENVBBOJDWQE RELATIVE PERCENT BY AUTOMATED COUNT19.9 %Normal Pro[facility]'S Hospital UclaComment on above:Performed By: #### 97553-9 #### [facility] ([id number]) [address] [place] [address] #### 2345-7, 12213-1, LIVR, 4086-5, CBCA, 2132-05 #### [facility] ([id number]) [address], [address] [place], [place] [address]YGE (RBC) [Entitic mass]30.8 bvYjpeic93-63FugDptajcMethodist Texsan HospitalComment on above:Performed By: #### 61751-5 #### [facility] ([id number]) [address] [place] [address] #### 2345-7, 47463-5, LIVR, 4086-5, CBCA, 2132-05 #### [facility] ([id number]) [address], [address] [place], [place] [address]EVQW (RBC) [Mass/Vol]33.5 g/cWVdsdnc12-69SbeIljrlbMethodist Texsan HospitalComment on above:Performed By: #### 98193-8 #### [facility] ([id number]) [address] [place] [address] 84673 #### 2345-7, 62390-7, LIVR, 4086-5, CBCA, 2132-05 #### [facility] ([id number]) [address], [address] [place], [place] [address]WWT (RBC) [Entitic vol]92 vMDpvdpg68-380AjzQzupqf Fremont HospitalComment on above:Performed By: #### 15504-2 #### [facility] ([id number]) [address] [place] [address]74 #### 2345-7, 46088-5, LIVR, 4086-5, CBCA, 2132-05 #### [facility] ([id number]) [address], [address] [place], [place] [address]LFXXZSLEE ABSOLUTE COUNT (10*3/UL) BY AUTOMATED COUNT0.6 10*3/uL Normal0.0-0.9ProMethodist Texsan HospitalComment on above:Performed By: #### 12771-9 #### [facility] ([id number]) [address] [place] [address] #### 2345-7, 71022-5, LIVR, 4086-5, CBCA, 2132-05 #### [facility] ([id number]) [address], [address] [place], [place] [address]HWLZRNBRH RELATIVE PERCENT BY AUTOMATED COUNT10.5 %Normal ProMgrove hill memorial hospitala [facility]'S Hospital UclaComment on above:Performed By: #### 62024-5 #### [facility] ([id number]) [address] [place] [address] 29079 #### 2345-7, 19991-1, LIVR, 4086-5, CBCA, 2132-05 #### [facility] ([id number]) [address], [address] [place], [place] [address]RACZNJCCQGD ABSOLUTE COUNT BY AUTOMATED COUNT4.1 10*3/uLNormal 1.5-6.6ProMethodist Texsan HospitalComment on above:Performed By: #### 74203-2 #### [facility] ([id number]) [address] [place] [address] #### 2345-7, 13278-8, LIVR, 4086-5, CBCA, 2132-05 #### [facility] ([id number]) [address], [address] [place], [place] [address]UWCOAEULLYO RELATIVE PERCENT BY AUTOMATED COUNT66.6 %Normal [facility]oria Community HospitalComment on above:Performed By: #### 59408-8 #### [facility] ([id number]) [address] [place] [address] 90[address] #### 2345-7, 30581-5, LIVR, 4086-5, CBCA, 2132-05 #### [facility] ([id number]) [address], [address] [place], [place] [address]Mopeyuzn mean volume (Bld) [Entitic vol]7.7 fLNormal7-12 [facility]ost[facility] Community HospitalComment on above:Performed By: #### 69116-4 #### [facility] ([id number]) [address] [place] [address]10 #### 2345-7, 57443-9, LIVR, 4086-5, CBCA, 2132-05 #### [facility] ([id number]) [address], [address] [place], [place] [address]Xlpyeeisy (Bld) [#/Vol]215 10*3/cMAzydvp980-539YadLqunsx [facility] Hospital UclaComment on above:Performed By: #### 93124-1 #### [facility] ([id number]) [address] [place] [address] 14175 #### 2345-7, 66226-3, LIVR, 4086-5, CBCA, 2132-05 #### [facility] ([id number]) [address], [address] [place], [place] [address]CLU COUNT4.81 X10E12/LNormal4.1-5.7[facility] Comment on above:Performed By: #### 02314-2 #### [facility] ([id number]) [address] [place] [address] #### 2345-7, 44049-7, LIVR, 4086-5, CBCA, 2132-05 #### [facility] ([id number]) [address] [place] [address], [address] [place], [place] [address]RUD (Bld) [#/Vol]6.2 10*3/uLNormal4-11[facility] Comment on above:Performed By: #### 93065-1 #### [facility] ([id number]) [address] [place] [address]26 #### 2345-7, 67812-3, LIVR, 4086-5, CBCA, 2132-05 #### [facility] ([id number]) [address] [place] [address], [address] [place], [place] [address]IQDFW PANELon 62-79-4100Rlqkdxo [Mass/Vol]4.3 g/dLNormal3.2-5.3 [facility] Community HospitalComment on above:Performed By: #### 95106-4 #### [facility] ([id number]) [address] [place] [address] #### 2345-7, 61652-6, LIVR, 4086-5, CBCA, 2132-05 #### [facility] ([id number]) [address] [place] [address], [address] [place], [place] [address]JCH [Catalytic activity/Vol]44 U/YHwjrbb83-305EwfSnaknkMethodist Texsan HospitalComment on above:Performed By: #### 97487-7 #### [facility] ([id number]) [address] [place] [address] 29152 #### 2345-7, 32922-1, LIVR, 4086-5, CBCA, 2132-05 #### [facility] ([id number]) [address], [address] [place], [place] [address]UMZ [Catalytic activity/Vol]23 U/LNormal<=40ProMethodist Texsan HospitalComment on above:Performed By: #### 70153-6 #### [facility] ([id number]) [address] [place] [address] 22676 #### 2345-7, 41020-0, LIVR, 4086-5, CBCA, 2132-05 #### [facility] ([id number]) [address], [address] [place], [place] [address]KMF [Catalytic activity/Vol]17 U/LNormal<=41ProMethodist Texsan HospitalComment on above:Performed By: #### 72538-9 #### [facility] ([id number]) [address] [place] [address]759 #### 2345-7, 58525-9, LIVR, 4086-5, CBCA, 2132-05 #### [facility] ([id number]) [address], [address] [place], [place] [address]Llrxwctso [Mass/Vol]0.4 mg/dLNormal0.3-1.2Pro[facility] Hospital UclaComment on above:Performed By: #### 13563-6 #### [facility] ([id number]) [address] [place] [address] 56008 #### 2345-7, 28198-8, LIVR, 4086-5, CBCA, 2132-05 #### [facility] ([id number]) [address], [address] [place], [place] [address]Smavaxapq.indirect [Mass/Vol]0.1 mg/dLNormal<=0.4ProMethodist Texsan HospitalComment on above:Performed By: #### 83029-4 #### [facility] ([id number]) [address] [place] [address]11 #### 2345-7, 23164-7, LIVR, 4086-5, CBCA, 2132-05 #### [facility] ([id number]) [address], [address] [place], [place] [address]Pagqtmd [Mass/Vol]7.5 g/dLNormal6.0-8.0ProMethodist Texsan HospitalComment on above:Performed By: #### 15102-7 #### [facility] ([id number]) [address] [place] [address] 97413 #### 2345-7, 41091-5, LIVR, 4086-5, CBCA, 2132-05 #### [facility] ([id number]) [address], [address] [place], [place] [address]NAOAXXMR ACID DEPAKANEon 51-04-6360DMLMLQXW ACID22 ug/mLLow 50-100ProMethodist Texsan HospitalComment on above:Performed By: #### 59512-5 #### [facility] ([id number]) [address] [place] [address] 05824 #### 2345-7, 91969-5, LIVR, 4086-5, CBCA, 2132-05 #### [facility] ([id number]) [address], [address] [place], [place] [address]LZLZrh 42-25-3275RCZLAknvpj Visit (NEURAV) TOM KHAN ([id number]) 1955 M T Date Time Provider Department 05/14/25 1:40 PM RODRIGUE JJ During your visit today, we recorded the following information about you: Pulse Blood pressure 81/minute 115/65 Rodrigue Jj MD 05/14/2025 2:38 PM Signed Rodrigue jJ MD 05/14/2025 2:38 PM Signed NEUROLOGY CONSULT NOTE PATIENT NAME: Tom Khan DATE: May 14, 2025 PRIMARY CARE PHYSICIAN: Tom Paniagua DO REASON FOR CONSULT: Cognitive impairment REQUESTING PHYSICIAN: Self My final recommendations will be communicated to the requesting health care provider by way of shared medical record for internal providers. ASSESSMENT/PLAN: 1. Memory loss (R41.3) 2. Cognitive impairment, mild, so stated (G31.84) 3. MCI (mild cognitive impairment) (G31.84) - MMSE score 28/30; prior neuropsychological testing in 2017, 2019, and 2021 showed mild cognitive impairment. - Differential includes neurodegenerative dementias (Alzheimer's, frontotemporal, temporal lobe), vitamin B12 deficiency, prior strokes, brain tumors, sleep disorders, depression, anxiety, chronic pain, and medication effects. - Order MRI brain to assess for neurodegenerative changes, prior strokes, or other structural causes. - Order serum vitamin B12 level. - Start vitamin B12 1,000 mcg daily. - Educated on potential causes of memory loss and rationale for MRI and B12 testing. - Follow-up pending MRI and lab results. 4. Obsessive-compulsive disorder, unspecified type (F42.9) 5. Recurrent major depressive disorder, remission status unspecified (F33.9) 6. CANDIDA (generalized anxiety disorder) (F41.1) - History of OCD, recurrent major depressive disorder (remission status unspecified), and generalized anxiety disorder; recent worsening of symptoms and medication side effects. - Refer to Dr. Tom Cai (geriatric psychiatry) for comprehensive psychiatric evaluation and medication management. - Advised to coordinate care through [facility] for streamlined communication. PATIENT INSTRUCTIONS: - A prescription for vitamin B12 1,000 mcg once daily has been sent to your pharmacy; you can have your B12 level drawn today without fasting. - A volumetric MRI of the brain has been ordered to evaluate for changes related to memory; please schedule this at a [facility] facility ([facility]) before you leave--the scheduling team will assist with insurance authorization. - You?ve been referred to Dr. Tom Cai, geriatric psychiatrist at [facility]; please make an appointment with him today at check-out. - Ensure both you and your have active access to your [facility] MyChart to view results and facilitate communication. - Once your MRI is complete, our office will review the findings and contact you to discuss next steps; you may also text or schedule a follow-up appointment if any questions arise. Any problems or concerns to call me or primary care physician immediately or go straight to the emergency department HISTORY OF PRESENT ILLNESS: Tom Khan is a 69-year-old male with a history of OCD, major depressive disorder, and generalized anxiety disorder, presenting for evaluation of memory issues and restlessness. He is accompanied by his , who provides additional history. Tom has been experiencing memory issues for the past 7-8 years. He underwent neuropsychological testing in 2019 and 2021, which indicated mild cognitive impairment. He reportedly declined a repeat battery of testing. He describes difficulty remembering positive aspects of his past, stating, A lot of this has to do with remembering the bad things I did in my past and not remembering the good things that I've done. He also reports feeling spiritually deficient and unwell, stating, I feel like I could faint anytime. Tom has a history of OCD, major depressive disorder, and generalized anxiety disorder, with a major mental breakdown in 2019. He was hospitalized in July and August of the past year and was started on an antipsychotic, which reportedly worsened his symptoms. His reports that he does not do well when his Risperdal is lowered. She expresses concern that he may be overmedicated and is seeking a referral to a new psychiatrist. Tom also experiences akathisia, described as an inability to stop moving, which his attributes to his medications. He is currently taking vitamin D3 and requests a prescription for vitamin B12. Past Diagnostic Results: - (2021) Neuropsychological Testing: Mild cognitive impairment. - (2019) Neuropsychological Testing: Mild cognitive impairment. - (2017) Neuropsychological Testing: Mild cognitive impairment. COMPLETE REVIEW OF SYSTEMS: GENERAL: No weight loss, malaise or fevers RESPIRATORY: Ne (more content not included)...NormalK[facility] HISTORY PHYSICALon 11-85-6799XZKYNQV PHYSICALHNO ID: [id number] Author: RODRIGUE JJ MD Service: ? Author Type: Physician Type: H&P Filed: 05/14/2025 14:38 Note Text: NEUROLOGY CONSULT NOTE PATIENT NAME: Tom Khan DATE: May 14, 2025 PRIMARY CARE PHYSICIAN: Tom Paniagua DO REASON FOR CONSULT: Cognitive impairment REQUESTING PHYSICIAN: Self My final recommendations will be communicated to the requesting health care provider by way of shared medical record for internal providers. ASSESSMENT/PLAN: 1. Memory loss (R41.3) 2. Cognitive impairment, mild, so stated (G31.84) 3. MCI (mild cognitive impairment) (G31.84) - MMSE score 28/30; prior neuropsychological testing in 2017, 2019, and 2021 showed mild cognitive impairment. - Differential includes neurodegenerative dementias (Alzheimer's, frontotemporal, temporal lobe), vitamin B12 deficiency, prior strokes, brain tumors, sleep disorders, depression, anxiety, chronic pain, and medication effects. - Order MRI brain to assess for neurodegenerative changes, prior strokes, or other structural causes. - Order serum vitamin B12 level. - Start vitamin B12 1,000 mcg daily. - Educated on potential causes of memory loss and rationale for MRI and B12 testing. - Follow-up pending MRI and lab results. 4. Obsessive-compulsive disorder, unspecified type (F42.9) 5. Recurrent major depressive disorder, remission status unspecified (F33.9) 6. CANDIDA (generalized anxiety disorder) (F41.1) - History of OCD, recurrent major depressive disorder (remission status unspecified), and generalized anxiety disorder; recent worsening of symptoms and medication side effects. - Refer to Dr. Tom Cai (geriatric psychiatry) for comprehensive psychiatric evaluation and medication management. - Advised to coordinate care through [facility] for streamlined communication. PATIENT INSTRUCTIONS: - A prescription for vitamin B12 1,000 mcg once daily has been sent to your pharmacy; you can have your B12 level drawn today without fasting. - A volumetric MRI of the brain has been ordered to evaluate for changes related to memory; please schedule this at a [facility] facility ([facility]) before you leave--the scheduling team will assist with insurance authorization. - You?ve been referred to Dr. Tom Cai, geriatric psychiatrist at [facility]; please make an appointment with him today at check-out. - Ensure both you and your have active access to your [facility] MyChart to view results and facilitate communication. - Once your MRI is complete, our office will review the findings and contact you to discuss next steps; you may also text or schedule a follow-up appointment if any questions arise. Any problems or concerns to call me or primary care physician immediately or go straight to the emergency department HISTORY OF PRESENT ILLNESS: Tom Khan is a 69-year-old male with a history of OCD, major depressive disorder, and generalized anxiety disorder, presenting for evaluation of memory issues and restlessness. He is accompanied by his , who provides additional history. Tom has been experiencing memory issues for the past 7-8 years. He underwent neuropsychological testing in 2019 and 2021, which indicated mild cognitive impairment. He reportedly declined a repeat battery of testing. He describes difficulty remembering positive aspects of his past, stating, A lot of this has to do with remembering the bad things I did in my past and not remembering the good things that I've done. He also reports feeling spiritually deficient and unwell, stating, I feel like I could faint anytime. Tom has a history of OCD, major depressive disorder, and generalized anxiety disorder, with a major mental breakdown in 2019. He was hospitalized in July and August of the past year and was started on an antipsychotic, which reportedly worsened his symptoms. His reports that he does not do well when his Risperdal is lowered. She expresses concern that he may be overmedicated and is seeking a referral to a new psychiatrist. Tom also experiences akathisia, described as an inability to stop moving, which his attributes to his medications. He is currently taking vitamin D3 and requests a prescription for vitamin B12. Past Diagnostic Results: - (2021) Neuropsychological Testing: Mild cognitive impairment. - (2019) Neuropsychological Testing: Mild cognitive impairment. - (2017) Neuropsychological Testing: Mild cognitive impairment. COMPLETE REVIEW OF SYSTEMS: GENERAL: No weight loss, malaise or fevers RESPIRATORY: Negative for cough, hemoptysis, wheezing, COPD, dyspnea or shortness of breath CARDIOVASCULAR: Negative for chest pain, leg swelling, hypertension, CHF or palpitations GI: No nausea, vomiting, or diarrhea See HPI. All other systems reviewed and are negative. PAST MEDICAL HISTORY Saumya (more content not included)...NormalThe [facility] LUMBAR SPINE WO CONTon 17-49-5771XP LUMBAR SPINE WO CONTMR LUMBAR SPINE WO CONT HISTORY: A 69-year-old male with a history of the prior lumbar spinal fusion surgery in 2023. Complaining of the chronic low back pain. No history of recent injury. TECHNIQUE: Multiplanar and multisequence MRI examination of the lumbar spine is performed. COMPARISON: Comparison is made with MRI examination of the lumbar spine of 06/10/2024 and plain filmradiographs of the lumbar spine of 04/06/2025. FINDINGS: The vertebral heights are normal. Mild degenerative arthritic changes in the lumbar spine. There is no evidence of spondylolisthesis. No marrow signal abnormality seen to suggest acute bonypathology. Both sacroiliac joints are intact. No significant [...] No intrathecal signal abnormality seen. IMPRESSION: * Laminectomy with posterior lumbar spinal fusion at L4-L5 with postsurgical change. No hardware complications are seen. No evidence of significant central canal narrowing. * Mild degenerative arthritis in the lumbar spine. Facet arthropathy seen at L3- L4 and L4-L5 with mild degree of central canal narrowing. Neural foramina are patent. * Minimal disc bulge at L3-L4. No evidence of cherie disc herniation in lumbar region. Finalized by Arturo Reed MD on 04/18/2025 1:06 PMNormalProMethodist Texsan HospitalBEDSIDE GLUCOSEon 49-55-0606Lbqcsid [Mass/Vol]118 mg/pEXfci69-31 [facility] HospitalComment on above:Performed By: #### BEDG #### [facility] ([facility]) [address] [place] [address] VIRGlucose [Mass/Vol]79 mg/fQMvovbj29-28AibNqdndm [facility] HospitalComment on above:Performed By: #### BEDG #### [facility] ([facility]) [address] [place] [address] VIRGlucose [Mass/Vol]99 mg/gSQjbets30-88UaxAristqMercy Health St. Rita'S Medical CenterComment on above:Performed By: #### BEDG #### [facility] ([facility]) [address] [place] [address] VIRXR Lumbar spine Views AP W right bending and W left bending on 18-51-1147DG SPINE LUMB BENDING ONLY 2-3 VWS Clinical history:Numbness in both legs; Status post lumbar spinal fusion Comparison: 09/22/2023 Impression: Postoperative changes of lumbar fusion hardware L4-L5 of multilevel degenerative disc disease. Multilevel facet hypertrophy. No significant movement flexion or extension. No acute process. Atherosclerotic abdominal aorta which is ectatic measuring 2.7 cm. Finalized by Nathan Karimi MD on 04/07/2025 12:44 PMSECTNathan Ferrell MD - 04/07/2025 XR SPINE LUMB BENDING [...] Nathan Karimi MD on 04/07/2025 12:44 PM [facility] HospitalXR Lumbar spine Views AP W right bending and W left bendingOrdered By: Nathan Karimi on 12-95-3873RwkBcbmgkOhio Valley Surgical Hospital Work Phone: XR SPINE LUMB BENDING ONLY 2-3 VWSon 75-37-5251KV SPINE LUMB BENDING ONLY 2-3 VWSXR SPINE LUMB BENDING ONLY 2-3 VWS XR [...] by Nathan Karimi MD on 04/07/2025 12:44 PMNormalProMedica Fostoria Community HospitalXR Lumbar spine Views AP W right bending and W left bendingon 04-06-2025 Radiology Study observation (narrative)[facility] HospitalBASIC METABOLIC PANELon 72-55-5205Tolwx gap [Moles/Vol]8 mmol/LNormal5-15Pro[facility] HospitalComment on above:Performed By: #### BMP #### [facility] ([facility]) [address] [place] [address] VIRCalcium [Mass/Vol]8.7 mg/dLNormal8.5-10.5PSuburban Community Hospital & Brentwood HospitalComment on above:Performed By: #### BMP #### [facility] ([facility]) [address] [place] [address] VIRChloride [Moles/Vol]104 mmol/VMqljoi92-801SdcOebrpdMercy Health St. Rita'S Medical CenterComment on above:Performed By: #### BMP #### [facility] ([facility]) [address] [place] [address] VIRCO2 [Moles/Vol]25 mmol/HRggxrf14-35UwtWumahs Baypark HospitalComment on above:Performed By: #### BMP #### [facility]) [address] [place] [address] VIRCreatinine [Mass/Vol]0.88 mg/dLNormal0.60-1.30ProMercy Health St. Rita'S Medical CenterComment on above:Result Comment: METHOD TRACEABLE TO IDMS STANDARDPerformed By: #### BMP #### [facility] ([facility]) [address] [address] VIREGFR (CKD-EPI) NON-RACE DEPENDENT>^90Normal>=60ProMercy Health St. Rita'S Medical CenterComment on above:Result Comment: Reported eGFR is based on the CKD-EPI 2020 equation that does not use a race coefficient.Performed By: #### BMP #### [facility]) [address] [place] [address] VIRGlucose [Mass/Vol]151 mg/hDFlgw03-95QprDdycydMercy Health St. Rita'S Medical CenterComment on above:Performed By: #### BMP #### [facility]) [address] [address] VIRPotassium [Moles/Vol]4.3 mmol/LNormal3.5-5.0ProMercy Health St. Rita'S Medical CenterComment on above:Performed By: #### BMP #### [facility]) [address] [address] VIRSodium [Moles/Vol]137 mmol/CTbfyri602-298CkfVmqjww [facility]park HospitalComment on above:Performed By: #### BMP #### [facility]) [address] [address] VIRUrea nitrogen [Mass/Vol]30 mg/dLHigh5-27ProMercy Health St. Rita'S Medical CenterComment on above:Performed By: #### BMP #### [facility]) [address] [place] [address] VIRBasic Metabolic Panelon 96-58-1025Mkuxl gap [Moles/Vol]8 mmol/L5 - 15 mmol/LProMedica Health SystemCalcium [Mass/Vol]8.7 mg/dL8.5 - 10.5 mg/dLProMedica Health SystemChloride [Moles/Vol]104 mmol/L98 - 109 mmol/L [facility] SystemCO2 [Moles/Vol]25 mmol/L22 - 32 mmol/LProMedica Health SystemCreatinine [Mass/Vol]0.88 mg/dL0.60 - 1.30 mg/dLProFlorala Memorial Hospital Health System Comment on above:METHOD TRACEABLE TO [facility] STANDARDEGFR Non-Race Dependent- PINF [facility] Surgical HospitalComment on above:Reported eGFR is based on the CKD-EPI 2020 equation that does not use a race coefficient. Glucose [Mass/Vol]151 mg/aKTwrs64 - 99 mg/dLOhio Valley Surgical Hospital Interpretation and review of laboratory resultsAbnormalOhio Valley Surgical Hospital Potassium [Moles/Vol]4.3 mmol/L3.5 - 5.0 mmol/LProMedeastpointe hospital Health SystemSodium [Moles/Vol]137 mmol/L134 - 146 mmol/LPrSelect Medical Specialty [facility] [place] SystemUrea nitrogen [Mass/Vol]30 mg/dLHigh5 - 27 mg/dLMendota Mental Health Institute System Extra Lavenderon 10-39-9226Imnse TubeAuto ResultedRichland Hospital SystemXR Foot - left 3 Viewson 03-68-7897Ykvogxv Result: AP, medial oblique, lateral views are weight-bearing. Significantly decreased calcaneal inclination, increased talar declination. Enthesophyte at the insertion of the Achilles tendon. I do not appreciate any acute fractures. There does seem to be a chronic, healed fracture of the 4th proximal phalanx but it has cortical continuity without any fracture line visible. Exquisite contracture of all 5 toes.[facility] HealthcareRadiology Study observation (narrative)[facility] WITH AUTO DIFFERENTIALon 53-87-6160FJJYSDSXV ABSOLUTE COUNT (10*3/UL) BY AUTOMATED COUNT 0.0 10*3/uLNormal0.0-0.2ProMedSierra Kings HospitalComment on above:Performed By: #### 01793-8 #### [facility] ([id number]) [address] [place] [address], [place] [address] #### 2345-7, 76038-0, LIVR, 4086-5, CBCA, 2132-9 #### [facility] ([id number]) [address], [address] [place], [place] [address]TVTDXZEYP RELATIVE PERCENT BY AUTOMATED COUNT0.5 %Normal [facility] Community HospitalComment on above:Performed By: #### 55141-4 #### [facility] ([id number]) [address] [place] [address] #### 2345-7, 77536-3, LIVR, 4086-5, CBCA, 2132-05 #### [facility] ([id number]) [address], [address] [place], [place] [address]YGSRQKKQGZR DIFFERENTIAL TYPEAUTOMATED DIFFERENTIALNormal ProMBellwood General HospitalComment on above:Performed By: #### 81216-6 #### [facility] ([id number]) [address] [place] [address] #### 2345-7, 55033-4, LIVR, 4086-5, CBCA, 2132-05 #### [facility] ([id number]) [address], [address] [place], [place] [address]Ovvepkpwoxd (Bld) [#/Vol]0.1 10*3/uLNormal0.0-0.4ProMed[facility] Hospital UclaComment on above:Performed By: #### 76251-3 #### [facility] ([id number]) [address] [place] [address] #### 2345-7, 68825-8, LIVR, 4086-5, CBCA, 2132-05 #### [facility] ([id number]) [address], [address] [place], [place] [address]WMTBTWDBZTH RELATIVE PERCENT BY AUTOMATED COUNT1.9 %Normal [facility] Community HospitalComment on above:Performed By: #### 99981-6 #### [facility] ([id number]) [address] [place] [address] #### 2345-7, 29355-3, LIVR, 4086-5, CBCA, 2132-05 #### [facility] ([id number]) [address], [address] [place], [place] [address]Thirxoklowj distribution width (RBC) [Ratio]16.4 %High11.5-15 ProMBellwood General HospitalComment on above:Performed By: #### 44410-8 #### [facility] ([id number]) [address] [place] [address] #### 2345-7, 83851-2, LIVR, 4086-5, CBCA, 9 #### [facility] ([id number]) [address], [address] [place], [place] [address]Qcudcodehq (Bld) [Volume fraction]40.6 %Vranjf38-69JefLulocuMethodist Texsan HospitalComment on above:Performed By: #### 19198-5 #### [facility] ([id number]) [address] [place] [address] #### 2345-7, 93886-7, LIVR, 4086-5, CBCA, 2132-05 #### [facility] ([id number]) [address], [address] [place], [place] [address]Fosgafqeqs (Bld) [Mass/Vol]13.8 g/rHZjydlf76-22CwtDtosqtProMedica Fostoria Community HospitalComment on above:Performed By: #### 27238-7 #### [facility] ([id number]) [address] [place] [address] #### 2345-7, 66078-7, LIVR, 4086-5, CBCA, 2132-05 #### [facility] ([id number]) [address], [facility] [address] [place], [place] [address]EIRQYABIDWB ABSOLUTE COUNT (10*3/UL) BY AUTOMATED COUNT1.3 10*3/uLNormal1.0-3.5ProMed[facility] Hospital UclaComment on above:Performed By: #### 48079-0 #### [facility] ([id number]) [address] [place] [address] #### 2345-7, 12120-0, LIVR, 4086-5, CBCA, 2132-05 #### [facility] ([id number]) [address], [address] [place], [place] [address]BMGHWPDPONE RELATIVE PERCENT BY AUTOMATED COUNT16.9 %Normal [facility] UclaComment on above:Performed By: #### 60835-6 #### [facility] ([id number]) [address] [place] [address] #### 2345-7, 56538-5, LIVR, 4086-5, CBCA, 2132-05 #### [facility] ([id number]) [address], [address] [place], [place] [address]HWD (RBC) [Entitic mass]30.7 yrWgtshq26-78LcpWudlscMethodist Texsan HospitalComment on above:Performed By: #### 66800-3 #### [facility] ([id number]) [address] [place] [address] #### 2345-7, 19957-2, LIVR, 4086-5, CBCA, 2132-05 #### [facility] ([id number]) [address], [address] [place], [place] [address]JAQO (RBC) [Mass/Vol]34.1 g/hFMzmxnr34-12EzzBcounpMethodist Texsan HospitalComment on above:Performed By: #### 84434-4 #### [facility] ([id number]) [address] [place] [address] #### 2345-7, 46802-9, LIVR, 4086-5, CBCA, 2132-05 #### [facility] ([id number]) [address], [address] [place], [place] [address]EYS (RBC) [Entitic vol]90 xHVoimag03-897NdsCghuza Fremont HospitalComment on above:Performed By: #### 14588-2 #### [facility] ([id number]) [address] [place] [address] #### 2345-7, 01477-3, LIVR, 4086-5, CBCA, 2131-9 #### [facility] ([id number]) [address], [address] [place], [place] [address]DSWHFFYSW ABSOLUTE COUNT (10*3/UL) BY AUTOMATED COUNT0.6 10*3/uL Normal0.0-0.9ProMethodist Texsan HospitalComment on above:Performed By: #### 74365-7 #### [facility] ([id number]) [address] [place] [address] #### 2345-7, 64940-8, LIVR, 4086-5, CBCA, 2131- #### [facility] ([id number]) [address], [address] [place], [place] [address]HSCKXOZYV RELATIVE PERCENT BY AUTOMATED COUNT7.5 %Normal ProMBellwood General HospitalComment on above:Performed By: #### 11144-0 #### [facility] ([id number]) [address] [place] [address] #### 2345-7, 93631-8, LIVR, 4086-5, CBCA, 9 #### [facility] ([id number]) [address], [address] [place], [place] [address]AMQCCPPLYZD ABSOLUTE COUNT BY AUTOMATED COUNT5.5 10*3/uLNormal 1.5-6.6ProMethodist Texsan HospitalComment on above:Performed By: #### 06989-0 #### [facility] ([id number]) [address] [place] [address] #### 2345-7, 46570-2, LIVR, 4086-5, CBCA, 2132-05 #### [facility] ([id number]) [address], [address] [place], [place] [address]RFRFYVRLCWV RELATIVE PERCENT BY AUTOMATED COUNT73.2 %Normal [facility] HospitalComment on above:Performed By: #### 54673-8 #### [facility] ([id number]) [address] [place] [address] #### 2345-7, 91334-5, LIVR, 4086-5, CBCA, 2132-05 #### [facility] ([id number]) [address], [address] [place], [place] [address]Eoxdsnba mean volume (Bld) [Entitic vol]7.3 fLNormal7-12 [facility] HospitalComment on above:Performed By: #### 53397-1 #### [facility] ([id number]) [address] [place] [address] #### 2345-7, 79774-7, LIVR, 4086-5, CBCA, 2132-05 #### [facility] ([id number]) [address], [address] [place], [place] [address]Pqclfwtth (Bld) [#/Vol]243 10*3/aIYcvudm713-326GdcUlrjgv Fremont HospitalComment on above:Performed By: #### 00336-4 #### [facility] ([id number]) [address] [place] [address] #### 2345-7, 92036-4, LIVR, 4086-5, CBCA, 2132-05 #### [facility] ([id number]) [address], [address] [place], [place] [address]GFV COUNT4.50 X10E12/LNormal4.1-5.7[facility] Comment on above:Performed By: #### 90140-7 #### [facility] ([id number]) [address] [place] [address] #### 2345-7, 27698-1, LIVR, 408-5, CBCA, 2132-05 #### [facility] ([id number]) [address], [address] [place], [place] [address]UUN (Bld) [#/Vol]7.6 10*3/uLNormal4-11[facility] Comment on above:Performed By: #### 64175-2 #### [facility] ([id number]) [address] [place] [address] #### 2345-7, 46343-7, LIVR, 408-5, CBCA, 2132-05 #### [facility] ([id number]) [address], [address] [place], [place] [address]VRTHH PANELon 98-38-3876Jkrpggf [Mass/Vol]4.3 g/dLNormal3.2-5.3 [facility] HospitalComment on above:Performed By: #### 32482-8 #### [facility] ([id number]) [address] [place] [address] #### 2345-7, 63423-3, LIVR, 408-5, CBCA, 2132-05 #### [facility] ([id number]) [address], [address] [place], [place] [address]GSN [Catalytic activity/Vol]64 U/BZmnwwb04-967LccRzyekjMethodist Texsan HospitalComment on above:Performed By: #### 36683-7 #### [facility] ([id number]) [address] [place] [address] #### 2345-7, 64279-2, LIVR, 4086-5, CBCA, 2132-05 #### [facility] ([id number]) [address], [address] [place], [place] [address]DRN [Catalytic activity/Vol]21 U/LNormal<=40ProMethodist Texsan HospitalComment on above:Performed By: #### 89771-0 #### [facility] ([id number]) [address] [place] [address] #### 2345-7, 78445-4, LIVR, 4086-5, CBCA, 2132-05 #### [facility] ([id number]) [address], [address] [place], [place] [address]EVM [Catalytic activity/Vol]20 U/LNormal<=41ProMethodist Texsan HospitalComment on above:Performed By: #### 75926-8 #### [facility] ([id number]) [address] [place] [address] #### 2345-7, 41596-3, LIVR, 4086-5, CBCA, 2132-05 #### [facility] ([id number]) [address], [address] [place], [place] [address]Ejhfumwgy [Mass/Vol]0.3 mg/dLNormal0.3-1.2Pro[facility] UclaComment on above:Performed By: #### 95147-6 #### [facility] ([id number]) [address] [place] [address] #### 2345-7, 49544-4, LIVR, 4086-5, CBCA, 2132-05 #### [facility] ([id number]) [address], [address] [place], [place] [address]Hxtfgratt.indirect [Mass/Vol]mg/dLNormal<=0.4ProMethodist Texsan HospitalComment on above:Performed By: #### 82639-1 #### [facility] ([id number]) [address] [place] [address] #### 2345-7, 61893-5, LIVR, 4086-5, CBCA, 2132-05 #### [facility] ([id number]) [address], [address] [place], [place] [address]Sutandw [Mass/Vol]7.1 g/dLNormal6.0-8.0ProMethodist Texsan HospitalComment on above:Performed By: #### 51619-0 #### [facility] ([id number]) [address] [place] [address] #### 2345-7, 05597-0, LIVR, 4086-5, CBCA, 2132-05 #### [facility] ([id number]) Count includes the [facility], [address] [place], [place] [address]ABMXTPNU ACID DEPAKANEon 49-50-0840OJZONQKX ACID34 ug/mLLow 50-100ProMethodist Texsan HospitalComment on above:Performed By: #### 18103-7 #### [facility] ([id number]) [address] [place] [address] #### 2345-7, 24530-7, LIVR, 4086-5, CBCA, 2132-05 #### [facility] ([id number]) [address], [address] [place], [place] [address]CQHSGUCKIILXI LEVELon 54-21-9798Tefhtupxuxkra [Mass/Vol]16.9 ug/vMQrikbd80.0-30.0ProMethodist Texsan HospitalComment on above:Order Comment: Reference ranges are for therapeutic limits.Performed By: #### 18063-1 #### [facility] ([id number]) [address] [place] [address] #### 2345-7, 08525-7, LIVR, 4086-5, CBCA, 2132-05 #### [facility] ([id number]) [address], [address] [place], [place] [address]WSQ WITH AUTO DIFFERENTIALon 58-44-9413MNWXJUYNG ABSOLUTE COUNT (10*3/UL) BY AUTOMATED COUNT0.0 10*3/uLNormal0.0-0.2PUniversity [facility] Comment on above:Performed By: #### 91332-7 #### [facility] ([id number]) [address] [place] [address] #### 2345-7, 30625-1, LIVR, 4086-5, CBCA, 2132-05 #### [facility] ([id number]) [address], [address] [place], [place] [address]TLLVDHTJO RELATIVE PERCENT BY AUTOMATED COUNT0.3 %Normal [facility] HospitalComment on above:Performed By: #### 94159-4 #### [facility] ([id number]) [address] [place] [address] #### 2345-7, 95313-7, LIVR, 4086-5, CBCA, 2132-05 #### [facility] ([id number]) [address], [address] [place], [place] [address]NLQFXHHAUDH DIFFERENTIAL TYPEAUTOMATED DIFFERENTIALNormal [facility] HospitalComment on above:Performed By: #### 67233-3 #### [facility] ([id number]) [address] [place] [address] #### 2345-7, 84997-3, LIVR, 4086-5, CBCA, 2132-05 #### [facility] ([id number]) [address], [address] [place], [place] [address]Wsrgrbwprvr (Bld) [#/Vol]0.2 10*3/uLNormal0.0-0.4ProBluffton Hospitalca Barataria HospitalComment on above:Performed By: #### 30391-1 #### [facility] ([id number]) [address] [place] [address] #### 2345-7, 92994-5, LIVR, 4086-5, CBCA, 2132-05 #### [facility] ([id number]) [address], [address] [place], [place] [address]UFABEYVMAOR RELATIVE PERCENT BY AUTOMATED COUNT1.6 %Normal [facility] HospitalComment on above:Performed By: #### 63964-0 #### [facility] ([id number]) [address] [place] [address] #### 2345-7, 65259-0, LIVR, 4086-5, CBCA, 2132-05 #### [facility] ([id number]) [address], [address] [place], [place] [address]Uwkuyskrnum distribution width (RBC) [Ratio]16.7 %High11.5-15 [facility] HospitalComment on above:Performed By: #### 66857-7 #### [facility] ([id number]) [address] [place] [address] #### 2345-7, 61100-9, LIVR, 4086-5, CBCA, 2132-05 #### [facility] ([id number]) [address], [address] [place], [place] [address]Stqdffutsf (Bld) [Volume fraction]42.2 %Xvtbdk47-69DbfLiostoMethodist Texsan HospitalComment on above:Performed By: #### 48280-1 #### [facility] ([id number]) [address] [place] [address] #### 2345-7, 65765-7, LIVR, 4086-5, CBCA, 2132-05 #### [facility] ([id number]) [address], [address] [place], [place] [address]Rjnrcyubtg (Bld) [Mass/Vol]14.4 g/sHYeschm44-94ZzdIyfdwnMethodist Texsan HospitalComment on above:Performed By: #### 96435-6 #### [facility] ([id number]) [address] [place] [address] 16480 #### 2345-7, 17488-2, LIVR, 4086-5, CBCA, 2132-05 #### [facility] ([id number]) [address], [address] [place], [place] [address]ZZIFVNBWOMK ABSOLUTE COUNT (10*3/UL) BY AUTOMATED COUNT1.6 10*3/uLNormal1.0-3.5Pro[facility] Hospital UclaComment on above:Performed By: #### 88536-2 #### [facility] ([id number]) [address] [place] [address] #### 2345-7, 11823-2, LIVR, 4086-5, CBCA, 2132-05 #### [facility] ([id number]) [address], [address] [place], [place] [address]XMVDQKDZPQS RELATIVE PERCENT BY AUTOMATED COUNT14.8 %Normal [facility] UclaComment on above:Performed By: #### 63928-1 #### [facility] ([id number]) [address] [place] [address]666 #### 2345-7, 15482-2, LIVR, 4086-5, CBCA, 2132-05 #### [facility] ([id number]) [address], [address] [place], [place] [address]YZS (RBC) [Entitic mass]30.4 lfDqpthq46-48DrdBlbrovMethodist Texsan HospitalComment on above:Performed By: #### 51816-1 #### [facility] ([id number]) [address] [place] [address] #### 2345-7, 88198-4, LIVR, 4086-5, CBCA, 2132-05 #### [facility] ([id number]) [address], [address] [place], [place] [address]CMBL (RBC) [Mass/Vol]34.1 g/vNRqmiud79-31OueGeuofhMethodist Texsan HospitalComment on above:Performed By: #### 46689-4 #### [facility] ([id number]) [address] [place] [address] #### 2345-7, 72249-7, LIVR, 4086-5, CBCA, 2132-05 #### [facility] ([id number]) [address], [address] [place], [place] [address]DDJ (RBC) [Entitic vol]89 sGOkmkkq84-174NsqSfrzwe [facility]ont HospitalComment on above:Performed By: #### 33415-2 #### [facility] ([id number]) [address] [place] [address] 24483 #### 2345-7, 94711-7, LIVR, 4086-5, CBCA, 2132-05 #### [facility] ([id number]) [address], [address] [place], [place] [address]BPAIRWGKB ABSOLUTE COUNT (10*3/UL) BY AUTOMATED COUNT0.9 10*3/uL Normal0.0-0.9ProMethodist Texsan HospitalComment on above:Performed By: #### 54799-0 #### [facility] ([id number]) [address] [place] [address] #### 2345-7, 67357-0, LIVR, 4086-5, CBCA, 2132-05 #### [facility] ([id number]) [address], [address] [place], [place] [address]EKBUQAAUM RELATIVE PERCENT BY AUTOMATED COUNT7.8 %Normal [facility] HospitalComment on above:Performed By: #### 93583-0 #### [facility] ([id number]) [address] [place] [address] #### 2345-7, 32641-9, LIVR, 4086-5, CBCA, 9 #### [facility] ([id number]) [address], [address] [place], [place] [address]JYEESWLNUNM ABSOLUTE COUNT BY AUTOMATED COUNT8.2 10*3/uLHigh 1.5-6.6ProBluffton Hospitalca [facility] Hospital UclaComment on above:Performed By: #### 44527-7 #### [facility] ([id number]) [address] [place] [address] #### 2345-7, 60202-6, LIVR, 4086-5, CBCA, 2132-05 #### [facility] ([id number]) [address], [address] [place], [place] [address]FTDPHBJNWQP RELATIVE PERCENT BY AUTOMATED COUNT75.5 %Normal [facility] HospitalComment on above:Performed By: #### 73424-8 #### [facility] ([id number]) [address] [place] [address]83 #### 2345-7, 37451-2, LIVR, 4086-5, CBCA, 2132-05 #### [facility] ([id number]) [address], [address] [place], [place] [address]Xinirtut mean volume (Bld) [Entitic vol]7.5 fLNormal7-12 [facility] HospitalComment on above:Performed By: #### 49898-1 #### [facility] ([id number]) [address] [place] [address] #### 2345-7, 61595-4, LIVR, 4086-5, CBCA, 2132-05 #### [facility] ([id number]) [address], [address] [place], [place] [address]Mjufgdlml (Bld) [#/Vol]297 10*3/lIMpfbdg417-576LzfZsovwq [facility]rem[facility] HospitalComment on above:Performed By: #### 80085-4 #### [facility] ([id number]) [address] [place] [address] #### 2345-7, 88610-4, LIVR, 4086-5, CBCA, 2132-05 #### [facility] ([id number]) [address], [address] [place], [place] [address]EQC COUNT4.73 X10E12/LNormal4.1-5.7[facility] Comment on above:Performed By: #### 98520-4 #### [facility] ([id number]) [address] [place] [address] #### 2345-7, 13755-7, LIVR, 4086-5, CBCA, 2132-05 #### [facility] ([id number]) [address], [address] [place], [place] [address]PTB (Bld) [#/Vol]10.8 10*3/uLNormal4-11ProMethodist Texsan HospitalComment on above:Performed By: #### 40863-1 #### [facility] ([id number]) [address] [place] [address] #### 2345-7, 54686-0, LIVR, 4086-5, CBCA, 2132-05 #### [facility] ([id number]) [address], [address] [place], [place] [address]IKNLDJONNPUNM METABOLIC PANELon 01-63-5428Mkgoroz [Mass/Vol]4.2 g/dLNormal3.2-5.3[facility] UclaComment on above:Performed By: #### 07752-1 #### [facility] ([id number]) [address] [place] [address] #### 2345-7, 00070-2, LIVR, 4086-5, CBCA, 2132-05 #### [facility] ([id number]) [address], [address] [place], [place] [address]HRG [Catalytic activity/Vol]91 U/CWaxnjo05-041RgbIqwdbdMethodist Texsan HospitalComment on above:Performed By: #### 39624-3 #### [facility] ([id number]) [address] [place] [address] #### 2345-7, 88918-2, LIVR, 4086-5, CBCA, 2132-05 #### [facility] ([id number]) [address], [address] [place], [place] [address]ZSO [Catalytic activity/Vol]31 U/LNormal<=40ProMethodist Texsan HospitalComment on above:Performed By: #### 90028-0 #### [facility] ([id number]) [address] [place] [address] #### 2345-7, 75577-8, LIVR, 4086-5, CBCA, 2132-05 #### [facility] ([id number]) [address], [address] [place], [place] [address]Futgq gap [Moles/Vol]6 mmol/LNormal5-15ProMethodist Texsan HospitalComment on above:Performed By: #### 43293-8 #### [facility] ([id number]) [address] [place] [address] #### 2345-7, 59962-9, LIVR, 4086-5, CBCA, 2132-05 #### [facility] ([id number]) [address], [address] [place] [address]XCY [Catalytic activity/Vol]32 U/LNormal<=41ProMethodist Texsan HospitalComment on above:Performed By: #### 04166-7 #### [facility] ([id number]) [address] [place] [address] #### 2345-7, 88875-9, LIVR, 4086-5, CBCA, 2132-05 #### [facility] ([id number]) [address], [address] [place] [address]Jagisudvj [Mass/Vol]0.9 mg/dLNormal0.3-1.2PUniversity Hospitals St. John Medical CenterComment on above:Result Comment: R-Results questionable due to hemolysis Performed By: #### 89841-3 #### [facility] ([id number]) [address] [place] [address] #### 2345-7, 54474-1, LIVR, 4086-5, CBCA, 2132-05 #### [facility] ([id number]) [address], [address] [place], [place] [address]Smqwbzl [Mass/Vol]8.9 mg/dLNormal8.5-10.5PUniversity Hospitals St. John Medical CenterComment on above:Performed By: #### 60768-9 #### [facility] ([id number]) [address] [place] [address] #### 2345-7, 98342-8, LIVR, 4086-5, CBCA, 2132-05 #### [facility] ([id number]) [address], [address] [place], [place] [address]Bjhjtofa [Moles/Vol]105 mmol/GCjuqid14-590YakXviubxMethodist Texsan HospitalComment on above:Performed By: #### 31347-7 #### [facility] ([id number]) [address] [place] [address] #### 2345-7, 93948-2, LIVR, 4086-5, CBCA, 2131-9 #### [facility] ([id number]) [address], [address] [place], [place] [address]EQ5 [Moles/Vol]21 mmol/GZbd77-60OtgBeeqbgUniversity [facility] Comment on above:Performed By: #### 77663-0 #### [facility] ([id number]) [address] [place] [address] 05182 #### 2345-7, 83019-3, LIVR, 4086-5, CBCA, 2131-9 #### [facility] ([id number]) [address], [address] [place], [place] [address]Hfzfjgmfff [Mass/Vol]0.93 mg/dLNormal0.70-1.20ProMethodist Texsan HospitalComment on above:Result Comment: METHOD TRACEABLE TO IDMS STANDARD Performed By: #### 61180-0 #### [facility] ([id number]) [address] [place] [address] 01544 #### 2345-7, 26434-7, LIVR, 4086-5, CBCA, 9 #### [facility] ([id number]) [address], [address] [place], [place] [address]ZHA/1.73 sq M.predicted among non-blacks MDRD (S/P/Bld) [Vol rate/Area]90 mL/min/{1.73_m2}Normal>=60ProMethodist Texsan HospitalComment on above:Result Comment: eGFR not reported due to non-numeric value for Creatinine. Reported eGFR is based on the CKD-EPI 2020 equation that does not use a race coefficient.Performed By: #### 64535-9 #### [facility] ([id number]) [address] [place] [address] 08433 #### 2345-7, 14205-3, LIVR, 4086-5, CBCA, 2132-05 #### [facility] ([id number]) [address], [address] [place], [place] [address]Eymvoni [Mass/Vol]132 mg/eXGxsr61-67EbtYkprayProMedica Fostoria Community Hospital Comment on above:Performed By: #### 89069-2 #### [facility] ([id number]) [address] [place] [address] 16997 #### 2345-7, 62226-5, LIVR, 4085-5, CBCA, 2132-05 #### [facility] ([id number]) [address], [address] [place], [place] [address]Baquaakzo [Moles/Vol]4.6 mmol/LNormal3.5-5.0ProMethodist Texsan HospitalComment on above:Result Comment: R-Specimen hemolyzed, results increased Performed By: #### 20577-1 #### [facility] ([id number]) [address] [place] [address] 43446 #### 2345-7, 78964-5, LIVR, 4086-5, CBCA, 2132-05 #### [facility] ([id number]) [address], [address] [place], [place] [address]Ptuutce [Mass/Vol]7.7 g/dLNormal6.0-8.0ProMedica Fostoria Community HospitalComment on above:Performed By: #### 83583-2 #### [facility] ([id number]) [address] [place] [address] 91811 #### 2345-7, 30725-6, LIVR, 4086-5, CBCA, 2132-05 #### [facility] ([id number]) [address], [address] [place], [place] [address]Xgbovd [Moles/Vol]132 mmol/EBkz226-094QquZvzmgsProMedica Fostoria Community Hospital Comment on above:Performed By: #### 63547-6 #### [facility] ([id number]) [address] [place] [address] 07503 #### 2345-7, 92480-5, LIVR, 4086-5, CBCA, 2132-05 #### [facility] ([id number]) [address], [address] [place], [place] [address]Cpue nitrogen [Mass/Vol]27 mg/dLNormal5-27ProMedica Fostoria Community HospitalComment on above:Performed By: #### 65127-2 #### [facility] ([id number]) [address] [place] [address] 27400 #### 2345-7, 50749-8, LIVR, 4085-5, CBCA, 2132-05 #### [facility] ([id number]) [address], [address] [place], [place] [address]JZMM SCREEN, URINEon 49-04-9460ADWFRPGBDQN/METHAMPNegativeNormal NegativeProMedica Fostoria Community HospitalComment on above:Result Comment: AMPH/METH screening cut off = 1000 ng/mLPerformed By: #### 34067-8 #### [facility] ([id number]) [address] [place] [address] 47572 #### 2345-7, 37266-7, LIVR, 4086-5, CBCA, 2132-05 #### [facility] ([id number]) [address], [address] [place], [place] [address]FCTLHBPZYAPHXvoscjfjAkwkibQxogdhixGobWhwduq [facility] Comment on above:Result Comment: Barbiturates screening cut off value = 200 ng/mLPerformed By: #### 52311-4 #### [facility] ([id number]) [address] [place] [address] 01222 #### 2345-7, 05625-7, LIVR, 4086-5, CBCA, 9 #### [facility] ([id number]) [address], [address] [place], [place] [address]FESXCNOWQQDEZJJPvmcvqjrBoaqfzBvokvcidCvhZpfxlj [facility] Comment on above:Result Comment: Benzodiazepines screening cut off value = 200 ng/mLPerformed By: #### 37023-0 #### [facility] ([id number]) [address] [place] [address] 93686 #### 2345-7, 40377-7, LIVR, 4086-5, CBCA, 2132-05 #### [facility] ([id number]) [address], [address] [place], [place] [address]IRWKLPPDRVVFPevoqyxgRsubdfFvzazruxMtpUipzlb [facility] Comment on above:Result Comment: Cannabinoids/THC screening cut off value = 50 ng/mLPerformed By: #### 63418-7 #### [facility] ([id number]) [address] [place] [address] 32753 #### 2345-7, 57731-7, LIVR, 4086-5, CBCA, 2132-05 #### [facility] ([id number]) [address], [address] [place], [place] [address]IPDMDRN METABOLITENegativeNormalPaulding County HospitalComment on above:Result Comment: Cocaine screening cut off value = 300 ng/mLPerformed By: #### 51583-4 #### [facility] ([id number]) [address] [place] [address] 48936 #### 2345-7, 99008-0, LIVR, 4086-5, CBCA, 2132-05 #### [facility] ([id number]) [address], [address] [place], [place] [address]RAFDRWYTbzthidmWtaehwUnkatdabPwdRfnhuo [facility] HospitalComhenry ford hospital on above:Result Comment: Ecstasy screening cut off value = 500 ng/mLPerformed By: #### 32783-2 #### [facility] ([id number]) [address] [place] [address] 64237 #### 2345-7, 90221-8, LIVR, 4086-5, CBCA, 2132-05 #### [facility] ([id number]) [address], [address] [place], [place] [address]IMEPYTQVGHwigdcjhRlzyyuOentpbuqYqzQsmckg [facility] HospitalComhenry ford hospital on above:Result Comment: Methadone screening cut off value = 300 ng/mL. Performed By: #### 28943-2 #### [facility] ([id number]) [address] [place] [address] 11374 #### 2345-7, 38319-9, LIVR, 4086-5, CBCA, 2132-05 #### [facility] ([id number]) [address], [address] [place] [address]FWGAMKSMedckhcnJmcqgjLzmjickhXiuSfyejr [facility] HospitalComhen[facility] on above:Result Comment: Opiates screening cut off value = 300 ng/mL This test is used for the detection of codeine, hydrocodone (>1000 ng/mL), morphine and hydromorphone (>900 ng/mL) in urine.Performed By: #### 50173-8 #### [facility] ([id number]) [address] [place] [address] 81317 #### 2345-7, 09645-6, LIVR, 4086-5, CBCA, 2132-05 #### [facility] ([id number]) [address], [address] [place], [place] [address]XLREAWQHXSoiuytkqLyjcbgZlqtnistCkhVrgidy [facility] HospitalComment on above:Result Comment: Oxycodone screening cut off value = 300 ng/mL This test is used for the detection of oxycodone and oxymorphone in urine.Performed By: #### 62736-7 #### [facility] ([id number]) [address] [place] [address] 31523 #### 2345-7, 07354-4, LIVR, 4086-5, CBCA, 2132-05 #### [facility] ([id number]) [address], [address] [place] [address]THCKCKQIPBUPWPfkhsrvrKfilfoSfhmjbjuNhnRotepa [facility] Comment on above:Result Comment: Phencyclidine screening cut off value = 25 ng/mLPerformed By: #### 38216-4 #### [facility] ([id number]) [address] [place] [address] 41848 #### 2345-7, 20378-6, LIVR, 4086-5, CBCA, 2132-05 #### [facility] ([id number]) [address], [address] [place] [address]YLNTCHClm 97-90-8796Tvvqqhz [Mass/Vol]mg/dLNormal<=0.080 ProMedicUC San [facility] Medical Center, HillcrestComment on above:Result Comment: This report is intended for use in clinical monitoring or management of patients.Performed By: #### 14225-1 #### [facility] ([id number]) [address] [place] [address] 75065 #### 2345-7, 95846-7, LIVR, 4086-5, CBCA, 2132-05 #### [facility] ([id number]) [address], [address] [place], [place] [address]OMPV NURSING URINE MACROSCOPIC UAon 60-37-8048FMSZPZFOS FERNANDO NegativeNormalNegativeProMedica Fostoria Community HospitalComment on above:Performed By: #### 98203-3 #### [facility] ([id number]) [address] [place] [address] 43521 #### 2345-7, 67968-5, LIVR, 4086-5, CBCA, 9 #### [facility] ([id number]) [address], [address] [place], [place] [address]WRBTO/HGB NURTraceAbnoBucyrus Community Hospital Comment on above:Performed By: #### 12963-4 #### [facility] ([id number]) [address] [place] [address] 38823 #### 2345-7, 59540-5, LIVR, 4086-5, CBCA, 2132-05 #### [facility] ([id number]) [address], [address] [place], [place] [address]NHAWSCT KZR261 mg/dLAbnoBucyrus Community Hospital Comment on above:Performed By: #### 65098-6 #### [facility] ([id number]) [address] [place] [address] 49979 #### 2345-7, 13264-8, LIVR, 4086-5, CBCA, 2132-05 #### [facility] ([id number]) [address], [address] [place], [place] [address]EEZEMSC NURNegativeNormalNegKettering Health – Soin Medical Center Comment on above:Performed By: #### 49981-9 #### [facility] ([id number]) [address] [place] [address] 63110 #### 2345-7, 52573-9, LIVR, 4086-5, CBCA, 9 #### [facility] ([id number]) [address], [address] [place], [place] [address]KQCOKGWMU ESTERASE NURNegativeNoalNegativeProMedica Fostoria Community HospitalComment on above:Performed By: #### 99412-4 #### [facility] ([id number]) [address] [place] [address] 42740 #### 2345-7, 41381-2, LIVR, 4086-5, CBCA, 2132-05 #### [facility] ([id number]) [address] [place] [address], [address] [place], [place] [address]ZGNJEMM NURNegativeNormalNegKettering Health – Soin Medical Center Comment on above:Performed By: #### 18222-7 #### [facility] ([id number]) [address] [place] [address] 91119 #### 2345-7, 53724-2, LIVR, 4086-5, CBCA, 2132-05 #### [facility] ([id number]) [address] [place] [address], [address] [place], [place] [address]HF NUR6.5Wungsm2.0, 6.0, 6.5, 7.0, 7.5, 8.0, 8.5, 5.5ProMed[facility] Hospital UclaComment on above:Performed By: #### 55739-7 #### [facility] ([id number]) [address] [place] [address] 42324 #### 2345-7, 33294-3, LIVR, 4086-5, CBCA, 2132-05 #### [facility] ([id number]) [address] [place] [address], [address] [place], [place] [address]TADVOZB NURNegativeSpencerportNegativeProMedica Fostoria Community Hospital Comment on above:Performed By: #### 91567-0 #### [facility] ([id number]) [address] [place] [address] 13040 #### 2345-7, 93647-1, LIVR, 4086-5, CBCA, 2132-05 #### [facility] [place] [facility] ([id number]) [address], [address] [place], [place] [address]KOFECMYT GRAVITY NUR1.487Swxahl0.010, 1.015, 1.020, 1.025 [facility] Hospital UclaComment on above:Performed By: #### 42540-6 #### [facility] ([id number]) [address] [place] [address] 61617 #### 2345-7, 59588-9, LIVR, 4086-5, CBCA, 2132-05 #### [facility] ([id number]) Count includes the [facility], [address] [place], [place] [address]RYVMPSHUSSEM NUR0.2 E.U./dLNormalProMedica Fostoria [facility] Hospital Comment on above:Performed By: #### 35291-6 #### [facility] ([id number]) [address] [place] [address] 08978 #### 2345-7, 92359-8, LIVR, 4086-5, CBCA, 2132-05 #### [facility] ([id number]) [address] [place] [address], [address] [place], [place] [address]CCEJJICEY NURNegativeNormalNegativeProMedica Fostoria Community Hospital Comment on above:Performed By: #### 28644-9 #### [facility] ([id number]) [address] [place] [address] 70464 #### 2345-7, 04634-6, LIVR, 4086-5, CBCA, 2132-05 #### [facility] ([id number]) [address], [address] [place], [place] [address]JGYBX/HGB NURNegativeNormalNegativeProMedica Fostoria Community Hospital Comment on above:Performed By: #### 83240-9 #### [facility] ([id number]) [address] [place] [address] 49611 #### 2345-7, 62856-4, LIVR, 4086-5, CBCA, 2132-05 #### [facility] ([id number]) [address], [address] [place], [place] [address]FUMFYIR EVF504 mg/dLAbnormalPaulding County Hospital Comment on above:Performed By: #### 40465-7 #### [facility] ([id number]) [address] [place] [address] 73896 #### 2345-7, 30857-4, LIVR, 4086-5, CBCA, 2132-05 #### [facility] ([id number]) [address], [address] [place], [place] [address]OAZFZOG NURNegativeNormOhio State Health System Comment on above:Performed By: #### 90108-3 #### [facility] ([id number]) [address] [place] [address] 79200 #### 2345-7, 63454-4, LIVR, 4086-5, CBCA, 2132-05 #### [facility] ([id number]) [address], [address] [place], [place] [address]HUTIJGBQV ESTERASE NURNegativeNormalNegKettering Health – Soin Medical CenterComment on above:Performed By: #### 92217-1 #### [facility] ([id number]) [address] [place] [address] 98166 #### 2345-7, 62993-1, LIVR, 4086-5, CBCA, 2132-05 #### [facility] ([id number]) [address], [address] [place], [place] [address]LTSBVNE NURNegativeNormalNegKettering Health – Soin Medical Center Comment on above:Performed By: #### 57576-9 #### [facility] ([id number]) [address] [place] [address] 64819 #### 2345-7, 04243-8, LIVR, 408-5, CBCA, 2132-05 #### [facility] ([id number]) [address], [address] [place], [place] [address]NU NUR7.0Spgjhg0.0, 6.0, 6.5, 7.0, 7.5, 8.0, 8.5, 5.5Pro[facility] Hospital UclaComment on above:Performed By: #### 74977-1 #### [facility] ([id number]) [address] [place] [address] 88363 #### 2345-7, 46199-7, LIVR, 4085-5, CBCA, 2132-05 #### [facility] ([id number]) [address], [address] [place], [place] [address]XHWOELX NURNegativeNormalNegativeProMedica [facility] Comment on above:Performed By: #### 89183-7 #### [facility] ([id number]) [address] [place] [address] 29997 #### 2345-7, 63958-2, LIVR, 4085-5, CBCA, 2132-05 #### [facility] ([id number]) [address], [address] [place], [place] [address]HGIRNTQJ GRAVITY FERNANDO<=1.739Ylrktmrf4.010, 1.015, 1.020, 1.025 [facility] Hospital UclaComment on above:Performed By: #### 49713-1 #### [facility] ([id number]) [address] [place] [address] 47902 #### 2345-7, 37309-9, LIVR, 408-5, CBCA, 2132-05 #### [facility] ([id number]) [address], [address] [place], [place] [address]FSBRKGUPSKQV NUR0.2 E.U./dLNormalProMedica Fostoria Community Hospital Comment on above:Performed By: #### 41363-4 #### [facility] ([id number]) [address] [place] [address] 90974 #### 2345-7, 61780-4, LIVR, 4086-5, CBCA, 2132-05 #### [facility] ([id number]) [address], [address] [place], [place] [address]JDDOTVWPBG LEVELon 84-66-4161QGCODVDGME<^4.0Xvbiuv4.0-25.0 [facility] Community HospitalComment on above:Order Comment: Reference ranges are for therapeutic limits.Performed By: #### 14912-9 #### [facility] ([id number]) [address] [place] [address] 93028 #### 2345-7, 02316-1, LIVR, 4086-5, CBCA, 2132-05 #### [facility] ([id number]) [address], [address] [place], [place] [address]HQSM Hemoglobin A1con 78-78-3558AwO6w (Bld) [Mass fraction]6.6 % 4 - 7 %[facility] HospitalAPTTon 15-07-2015cSOB Coag (Bld) [Time]28 pDhwdic69-46AyaIltacyProMedica Fostoria Community HospitalComment on above:Performed By: #### 76132-0 #### [facility] ([id number]) [address] [place] [address] 21692 #### 2345-7, 21378-1, LIVR, 4086-5, CBCA, 2132-05 #### [facility] ([id number]) [address], [address] [place], [place] [address]B-EDYS NATRIURETIC PEPTIDEon 92-17-7406Umirbyaodno peptide B (Bld) [Mass/Vol]56 pg/mLNormal<=100ProMethodist Texsan HospitalComment on above: Performed By: #### 84860-2 #### [facility] ([id number]) [address] [place] [address] 64047 #### 2345-7, 45334-7, LIVR, 4086-5, CBCA, 2132-05 #### [facility] ([id number]) [address], [address] [place], [place] [address]OJGQV METABOLIC PANELon 08-84-6521Rhtoe gap [Moles/Vol]10 mmol/L Normal5-15ProMethodist Texsan HospitalComment on above:Performed By: #### 50004-2 #### [facility] ([id number]) [address] [place] [address] 69789 #### 2345-7, 03855-1, LIVR, 4086-5, CBCA, 2132-05 #### [facility] ([id number]) [address], [address] [place], [place] [address]Txxqnwf [Mass/Vol]9.4 mg/dLNormal8.5-10.5Pro[facility] Hospital UclaComment on above:Performed By: #### 50703-5 #### [facility] ([id number]) [address] [place] [address] 71661 #### 2345-7, 42773-1, LIVR, 4086-5, CBCA, 2132-05 #### [facility] ([id number]) [address], [address] [place], [place] [address]Pjqdnwlw [Moles/Vol]106 mmol/MSgjzpb54-052KsaEgaqibMethodist Texsan HospitalComment on above:Performed By: #### 20568-8 #### [facility] ([id number]) [address] [place] [address] 74166 #### 2345-7, 45364-2, LIVR, 4086-5, CBCA, 9 #### [facility] ([id number]) [address], [address] [place], [place] [address]BM7 [Moles/Vol]23 mmol/RFyraca30-60AicLtphboUniversity Hospitals St. [facility] Comment on above:Performed By: #### 22869-8 #### [facility] ([id number]) [address] [place] [address] 82825 #### 2345-7, 11635-0, LIVR, 4086-5, CBCA, 2132-05 #### [facility] ([id number]) [address], [address] [place], [place] [address]Eckjktescr [Mass/Vol]0.98 mg/dLNormal0.70-1.20ProMethodist Texsan HospitalComment on above:Result Comment: METHOD TRACEABLE TO IDMS STANDARD Performed By: #### 90469-5 #### [facility] ([id number]) [address] [place] [address] 84879 #### 2345-7, 38615-2, LIVR, 4086-5, CBCA, 9 #### [facility] ([id number]) [address], [address] [place], [place] [address]WWS/1.73 sq M.predicted among non-blacks MDRD (S/P/Bld) [Vol rate/Area]85 mL/min/{1.73_m2}Normal>=60ProMethodist Texsan HospitalComment on above:Result Comment: eGFR not reported due to non-numeric value for Creatinine. Reported eGFR is based on the CKD-EPI 202 equation that does not use a race coefficient.Performed By: #### 34648-6 #### [facility] ([id number]) [address] [place] [address] [place] [address] #### 2345-7, 93154-7, LIVR, 4086-5, CBCA, 2132-05 #### [facility] ([id number]) [address], [address] [place], [place] [address]Vdzyahq [Mass/Vol]118 mg/tFPcew59-16MacNtrxuvProMedica Fostoria Community Hospital Comment on above:Performed By: #### 16964-1 #### [facility] ([id number]) [address] [place] [address] 80845 #### 2345-7, 23397-4, LIVR, 6-5, CBCA, 2132-05 #### [facility] ([id number]) [address], [address] [place], [place] [address]Mqeqqagob [Moles/Vol]3.9 mmol/LNormal3.5-5.0ProMethodist Texsan HospitalComment on above:Performed By: #### 27033-0 #### [facility] ([id number]) [address] [place] [address] 20683 #### 2345-7, 50537-2, LIVR, 4086-5, CBCA, 2132-05 #### [facility] ([id number]) [address], [address] [place], [place] [address]Gdsazs [Moles/Vol]139 mmol/YCekvwi215-404XonIiqpuo Fremont HospitalComment on above:Performed By: #### 64799-4 #### [facility] ([id number]) [address] [place] [address] #### 2345-7, 23930-7, LIVR, 4086-5, CBCA, 2132-05 #### [facility] ([id number]) [address], [address] [place], [place] [address]Ufdg nitrogen [Mass/Vol]28 mg/dLHigh5-27ProMethodist Texsan HospitalComment on above:Performed By: #### 12668-3 #### [facility] ([id number]) [address] [place] [address] #### 2345-7, 81073-1, LIVR, 4086-5, CBCA, 2132-05 #### [facility] ([id number]) [address], [address] [place], [place] [address]RDA WITH AUTO DIFFERENTIALon 73-49-5218YLAXSOSYF ABSOLUTE COUNT (10*3/UL) BY AUTOMATED COUNT0.0 10*3/uLNormalProMedica Fostoria Community HospitalComment on above:Performed By: #### 63463-5 #### [facility] ([id number]) [address] [place] [address] #### 2345-7, 78004-0, LIVR, 4086-5, CBCA, 2132-05 #### [facility] ([id number]) [address], [address] [place], [place] [address]TOEGTRSBH RELATIVE PERCENT BY AUTOMATED COUNT0.4 %Normal [facility] HospitalComhenry ford hospital on above:Performed By: #### 50754-3 #### [facility] ([id number]) [address] [place] [address] #### 2345-7, 52723-6, LIVR, 4086-5, CBCA, 2132-05 #### [facility] ([id number]) [address], [address] [place], [place] [address]GIICNLOSIZN DIFFERENTIAL TYPEAUTOMATED DIFFERENTIALNormal [facility] HospitalComhen[facility] on above:Performed By: #### 31966-0 #### [facility] ([id number]) [address] [place] [address] #### 2345-7, 99477-2, LIVR, 4086-5, CBCA, 2132-05 #### [facility] ([id number]) [address], [address] [place], [place] [address]Ggigthyexhe (Bld) [#/Vol]0.2 10*3/uLNormalProMedica Fostoria Community HospitalComment on above:Performed By: #### 09999-3 #### [facility] ([id number]) [address] [place] [address] #### 2345-7, 76478-3, LIVR, 4086-5, CBCA, 2132-05 #### [facility] ([id number]) [address], [address] [place], [place] [address]YXLZJBOJAMG RELATIVE PERCENT BY AUTOMATED COUNT2.0 %Normal [facility] HospitalComment on above:Performed By: #### 28340-3 #### [facility] ([id number]) [address] [place] [address] #### 2345-7, 93279-2, LIVR, 4086-5, CBCA, 2132-05 #### [facility] ([id number]) [address] [place], [place] [address]Fgrhpkgeata distribution width (RBC) [Ratio]17.0 %High11.5-15 [facility] HospitalComment on above:Performed By: #### 30751-7 #### [facility] ([id number]) [address] [place] [address] #### 2345-7, 13795-6, LIVR, 4086-5, CBCA, 2132-05 #### [facility] ([id number]) [address], [address] [place], [place] [address]Jucsxrpxdb (Bld) [Volume fraction]42.4 %Emrajv84-82UchGamqatProMedica Fostoria Community HospitalComment on above:Performed By: #### 14306-3 #### [facility] ([id number]) [address] [place] [address] #### 2345-7, 50156-6, LIVR, 4086-5, CBCA, 2132-05 #### [facility] ([id number]) [address], [address] [place], [place] [address]Qamaobprkp (Bld) [Mass/Vol]14.6 g/iNJnzsmh61-46BktHdfdofMethodist Texsan HospitalComment on above:Performed By: #### 61316-8 #### [facility] ([id number]) [address] [place] [address] #### 2345-7, 66508-4, LIVR, 4086-5, CBCA, 2132-05 #### [facility] ([id number]) [address], [address] [place], [place] [address]ULVBOYDHYOO ABSOLUTE COUNT (10*3/UL) BY AUTOMATED COUNT1.5 10*3/uLNormalProMethodist Texsan HospitalComment on above:Performed By: #### 00139-8 #### [facility] ([id number]) [address] [place] [address] #### 2345-7, 81457-5, LIVR, 4086-5, CBCA, 2132-05 #### [facility] ([id number]) [address], [address] [place], [place] [address]XYCXMIIYEJF RELATIVE PERCENT BY AUTOMATED COUNT17.1 %Normal [facility] Hospital UclaComment on above:Performed By: #### 66137-0 #### [facility] ([id number]) [address] [place] [address] #### 2345-7, 97636-8, LIVR, 4086-5, CBCA, 2132-05 #### [facility] ([id number]) [address], [address] [place], [place] [address]IBJ (RBC) [Entitic mass]30.7 nbRninky58-33HylCettfkMethodist Texsan HospitalComment on above:Performed By: #### 25221-1 #### [facility] ([id number]) [address] [place] [address] #### 2345-7, 25699-9, LIVR, 4086-5, CBCA, 9 #### [facility] ([id number]) [address], [address] [place], [place] [address]XWKB (RBC) [Mass/Vol]34.4 g/yCHddxhu48-05UvcBhbbkkMethodist Texsan HospitalComment on above:Performed By: #### 38287-8 #### [facility] ([id number]) [address] [place] [address]99 #### 2345-7, 36840-0, LIVR, 4086-5, CBCA, 2132-05 #### [facility] ([id number]) [address] [place], [place] [address]LLW (RBC) [Entitic vol]89 fXXmaqrp18-572LuvRjvmgs Fremont HospitalComment on above:Performed By: #### 89475-5 #### [facility] ([id number]) [address] [place] [address]999 #### 2345-7, 50854-4, LIVR, 4086-5, CBCA, 2132-05 #### [facility] ([id number]) [address], [address] [place], [place] [address]OWEPUFSKP ABSOLUTE COUNT (10*3/UL) BY AUTOMATED COUNT0.7 10*3/uL NormalProMethodist Texsan HospitalComment on above:Performed By: #### 93794-4 #### [facility] ([id number]) [address] [place] [address] #### 2345-7, 25536-0, LIVR, 4086-5, CBCA, 2132-05 #### [facility] ([id number]) [address], [address] [place], [place] [address]STBNMDBSN RELATIVE PERCENT BY AUTOMATED COUNT8.1 %Normal [facility] HospitalComment on above:Performed By: #### 51862-7 #### [facility] ([id number]) [address] [place] [address] #### 2345-7, 87224-3, LIVR, 4086-5, CBCA, 2132-05 #### [facility] ([id number]) [address], [address] [place], [place] [address]UXPAFZACTSF ABSOLUTE COUNT BY AUTOMATED COUNT6.4 10*3/uLNormal [facility] HospitalComment on above:Performed By: #### 90870-9 #### [facility] ([id number]) [address] [place] [address] #### 2345-7, 67157-1, LIVR, 4086-5, CBCA, 2132-05 #### [facility] ([id number]) [address], [address] [place], [place] [address]FBYMBKFPFND RELATIVE PERCENT BY AUTOMATED COUNT72.4 %Normal [facility] HospitalComment on above:Performed By: #### 75039-8 #### [facility] ([id number]) [address] [place] [address]327 #### 2345-7, 71362-2, LIVR, 4086-5, CBCA, 2132-05 #### [facility] ([id number]) [address], [address] [place], [place] [address]Uujoejvu mean volume (Bld) [Entitic vol]7.3 fLNormal7-12 [facility] HospitalComment on above:Performed By: #### 41094-0 #### [facility] ([id number]) [address] [place] [address] #### 2345-7, 77550-6, LIVR, 4086-5, CBCA, 2132-05 #### [facility] ([id number]) [address], [address] [place], [place] [address]Rtegvuciz (Bld) [#/Vol]253 10*3/rLNdmwmw220-829VziHlsldhProMedica Fostoria Community HospitalComment on above:Performed By: #### 84793-4 #### [facility] ([id number]) [address] [place] [address] #### 2345-7, 33754-2, LIVR, 4086-5, CBCA, 2132-05 #### [facility] ([id number]) [address], [address] [place], [place] [address]PEN COUNT4.74 X10E12/LNormal4.1-5.7[facility] Comment on above:Performed By: #### 09924-3 #### [facility] ([id number]) [address] [place] [address] #### 2345-7, 15777-1, LIVR, 4086-5, CBCA, 2132-05 #### [facility] ([id number]) [address], [address] [place], [place] [address]VVX (Bld) [#/Vol]8.9 10*3/uLNormal4-11[facility] Comment on above:Performed By: #### 69720-9 #### [facility] ([id number]) [address] [place] [address] #### 2345-7, 35393-9, LIVR, 4086-5, CBCA, 2131-9 #### [facility] ([id number]) [address], [address] [place], [place] [address]GS BRAIN WO CONTon 80-39-3360OZ BRAIN WO CONTCT BRAIN WO CONT CLINICAL INFORMATION: fall, head [...] by Reilly Hassan MD on 12/31/2024 1:14 [facility] CONTon 93-19-7261FU CERVICAL SPINE WO CONTCT CERVICAL SPINE WO CONT CLINICAL INFORMATION: fall, [...] by Reilly Hassan MD on 12/31/2024 1:25 [facility] HospitalCT FACIAL BONES WO CONTon 64-28-1524WW FACIAL BONES WO CONTCT FACIAL BONES WO CONT EXAM: CT FACIAL [...] by Bassem Paz MD on 12/31/2024 1:41 PMNormalProMethodist Texsan Hospital ETHANOLon 53-74-0966Laxlwtn [Mass/Vol]mg/dLNormal<=0.080[facility] HospitalComment on above:Result Comment: This report is intended for use in clinical monitoring or management of patients.Performed By: #### 11886-2 #### [facility] ([id number]) [address] [place] [address] #### 2345-7, 95972-0, LIVR, 4086-5, CBCA, 2132-05 #### [facility] ([id number]) [address], [address] [place], [place] [address]OVITCZFAOzr 52-46-6258Ksopcjsiw [Mass/Vol]2.1 mg/dLNormal1.8-2.6 [facility] HospitalComment on above:Performed By: #### 49960-0 #### [facility] ([id number]) [address] [place] [address] #### 2345-7, 42721-4, LIVR, 4086-5, CBCA, 2132-05 #### [facility] ([id number]) [address], [address] [place], [place] [address]ZKQR NURSING URINE MACROSCOPIC UAon 37-38-5015HUYGKKTCQ FERNANDO NegativeNormalNegativeProMedica Fostoria Community HospitalComment on above:Performed By: #### 28512-5 #### [facility] ([id number]) [address] [place] [address] 16091 #### 2345-7, 02833-7, LIVR, 4086-5, CBCA, 9 #### [facility] ([id number]) [address] [place] [address], [address] [place], [place] [address]BHADR/HGB NURNegativeNormalNegativeProMedica [facility]ostoria Community Hospital Comment on above:Performed By: #### 17540-8 #### [facility] ([id number]) [address] [place] [address] 67[address] #### 2345-7, 63971-1, LIVR, 4086-5, CBCA, 2132-05 #### [facility] ([id number]) [address] [place] [address], [address] [place], [place] [address]BEEVOWL FERNANDO>=1000 mg/dLAbnormalNegativeProMedica Fostoria Community HospitalComment on above:Performed By: #### 76448-8 #### [facility] ([id number]) [address] [place] [address] #### 2345-7, 09942-1, LIVR, 4086-5, CBCA, 2132-05 #### [facility] ([id number]) [address], [address] [place], [place] [address]VTWTMYZ NURNegativeNormalNegKettering Health – Soin Medical Center Comment on above:Performed By: #### 52711-8 #### [facility] ([id number]) [address] [place] [address] #### 2345-7, 58403-8, LIVR, 4086-5, CBCA, 2132-05 #### [facility] ([id number]) [address], [address] [place], [place] [address]RAJZWYSMS ESTERASE NURNegativeNoalNegKettering Health – Soin Medical CenterComment on above:Performed By: #### 95521-3 #### [facility] ([id number]) [address] [place] [address]347 #### 2345-7, 52198-4, LIVR, 4086-5, CBCA, 2132-05 #### [facility] ([id number]) [address], [address] [place], [place] [address]YRMININ NURNegativeNokindred hospital - greensboroNegKettering Health – So[facility] Medical Center Comment on above:Performed By: #### 88254-3 #### [facility] ([id number]) [address] [place] [address]247 #### 2345-7, 33992-7, LIVR, 4086-5, CBCA, 2132-05 #### [facility] ([id number]) [address] [address], [address] [place], [place] [address]CA NUR6.8Gxovmv4.0, 6.0, 6.5, 7.0, 7.5, 8.0, 8.5, 5.5[facility] Hospital UclaComment on above:Performed By: #### 40057-1 #### [facility] ([id number]) [address] [place] [address] 68013 #### 2345-7, 12582-0, LIVR, 4086-5, CBCA, 2132-05 #### [facility] ([id number]) [address], [address] [place], [place] [address]LLQYBPW NURNegativeKindred Healthcare Comment on above:Performed By: #### 66938-5 #### [facility] ([id number]) [address] [place] [address]1265 #### 2345-7, 67591-1, LIVR, 4086-5, CBCA, 2132-05 #### [facility] ([id number]) [address], [address] [place], [place] [address]NARKHEOB GRAVITY NUR1.406Rjugoy3.010, 1.015, 1.020, 1.025 [facility] HospitalComment on above:Performed By: #### 36259-4 #### [facility] ([id number]) [address] [place] [address]170 #### 2345-7, 81158-9, LIVR, 4086-5, CBCA, 2132-05 #### [facility] ([id number]) [address] [address], [address] [place], [place] [address]FLDJWUXNQAZF NUR0.2 E.U./dLNormal0.2 E.U./dL, 1.0 E.U./dL [facility] HospitalComment on above:Performed By: #### 15343-2 #### [facility] ([id number]) [address] [place] [address] 30077 #### 2345-7, 01903-5, LIVR, 4086-5, CBCA, 2132-05 #### [facility] ([id number]) [address], [address] [place], [place] [address]DEGMCSS AND INRon 21-49-7370AHC2.2Ahlyhl3.9-1.2[facility] Hospital UclaComment on above:Performed By: #### 98764-7 #### [facility] ([id number]) [address] [place] [address]337 #### 2345-7, 76428-0, LIVR, 4086-5, CBCA, 2132-05 #### [facility] ([id number]) [address], [address] [place], [place] [address]VY Coag (PPP) [Time]11.7 sNormal9.8-13.2[facility] Hospital UclaComment on above:Performed By: #### 87466-4 #### [facility] ([id number]) [address] [place] [address] 16519 #### 2345-7, 08943-6, LIVR, 4086-5, CBCA, 2131-9 #### [facility] ([id number]) [address] [facility], [facility] [address] [place], [place] [address]LCFO I, HIGH SENSITIVITY 1 HOURon 31-44-2640GYBBYJGB I, HIGH EJVHFCSXIWP18 ng/LNormal<21ProMethodist Texsan HospitalComment on above:Performed By: #### 16037-6 #### [facility] ([id number]) [address] [place] [address] #### 2345-7, 39156-7, LIVR, 4086-5, CBCA, 2132-05 #### [facility] ([id number]) [address] [facility], [address] [address]KIQLONDX I, HIGH SENSITIVITY 0 HOURon 17-21-6798RCJXDXIN I, HIGH KVPAOXREMYY74 ng/LNormal<21ProMethodist Texsan HospitalComment on above:Performed By: #### 56829-4 #### [facility] ([id number]) [address] [place] [address] #### 2345-7, 74173-7, LIVR, 4086-5, CBCA, 2132-05 #### [facility] ([id number]) Count includes the [facility] [facility], [facility] [address] [place], [place] [address]Ralnqrh post void residualon 86-38-8022Kidcto18 mLProMercy Health Clermont Hospital SystemProMercy Health Clermont Hospital SystemPOCT Urinalysis Auto, W/O Microscopyon 50-98-0968Obzsqndr Poct Urine BloodNegativeProMedica Health SystemExternal Poct Urine Glucose3+[facility] SystemExternal Poct Urine KetonesNegative [facility] SystemExternal Poct Urine Leukocyte EsteraseNegativeSalem City Hospital SystemExternal Poct Urine NitriteNegativeSalem City Hospital SystemExternal Poct Urine Ph5.5PMount St. Mary Hospital SystemExternal Poct Urine ProteinNegative [facility] HospitalProFisher-Titus Medical CenterProstate specific Ag [Mass/Vol]on 48-48-4085QJVUUNYMC SPEC ANT1.18 ng/mLNormal0.00-4.00[facility] Comment on above:Result Comment: The method used for this test is Roseline Nellie DXI chemiluminescent immunoassay. Values obtained by different assay methods cannot be used interchangeably.Performed By: #### 2857-1 #### [facility] ([id number]) [address] [address], [address] [place], [place] [address]Golcpizvjy referral to Diabetic Educationon 93-53-8929PszWdcnusOhio Valley Surgical HospitalXR Shoulder - left 2 Viewson 29-02-1158Qvauojn Result: Right Shoulder AP and Scap Y [...] left shoulder, concern for rotator cuff arthropathy [facility] Shoulder - right 2 Viewson 05-11-0381Qmmumlr Result: Right Shoulder AP and Scap Y No acute fracture or dislocation Bone Structures clavicle and scapula and humeral head appear normal alignment Glenohumeral joint space maintained with mild degenerative changes Remote rib fractures noted with callus present. Moderate ac joint Soft tissues and limited visualized lung garcia unremarkable Impression: Mild degenerative changes right shoulder with no acute bony process.Community HealthNo Panel Informationon 48-51-3048AdaaafoHECTOR Villaseñor 11/01/2024 8:42 AM M Inj/Asp: L [...] and draped in the usual sterile fashion. Community HealthXR Shoulder - left 2 Viewson 71-25-4995Zngweucji Study observation (narrative)[facility] Shoulder - right 2 Viewson 03-20-4316Lvzohpqym Study observation (narrative)[facility] HospitalROALBUMIN - ALBUMIN:CREATININE URINE RATIOon 99-84-1652NWY/CREAT RATIONOT CALCULATEDNormal 0.0-30.0J.[facility]. Ruby Memorial HospitalComment on above:Result Comment: Result for Albumin/Creatinine Ratio cannot be reliably calculated because urine albumin and or urine creatinine is below the detection limit of the assay.Performed By: #### CLIFFORD #### [facility] ([id number]) [address] [place] [address], [address] [address]Zbfzazq DL <= 20 mg/L (U) [Mass/Vol]mg/dLNormal0.0-1.9ProFisher-Titus Medical CenterComment on above:Performed By: #### CLIFFORD #### [facility] ([id number]) [address] [place] [address], [address] [place], [place] [address]FUDOF CREAT49.87 mg/dLNormalProFisher-Titus Medical CenterComment on above:Performed By: #### CLIFFORD #### [facility] ([id number]) [address] [place] [address], [address] [address]TFKP Hemoglobin A1con 06-48-7328VfV6y (Bld) [Mass fraction]7.5 % Abnormal4 - 7 %[facility] SystemInterpretation and review of laboratory resultsAbnormalClarion HospitalBASIC METABOLIC PANLon 05-06-3786Etfst gap [Moles/Vol]11 mmol/LNormal5-15ProMethodist Texsan HospitalComment on above:Performed By: #### BMP #### [facility] ([id number]) [address], [address] [place] [address]Ftkqgrl [Mass/Vol]9.4 mg/dLNormal8.5-10.5PUniversity Hospitals St. John Medical CenterComment on above:Performed By: #### BMP #### [facility] ([id number]) [address], [address] [place], [place] [address]Xrikjzuk [Moles/Vol]105 mmol/LKbdwjk77-382ZetLxelulMethodist Texsan HospitalComment on above:Performed By: #### BMP #### [facility] ([id number]) [address], [address] [place], [place] [address]SO8 [Moles/Vol]25 mmol/EAihbli36-93MsvSsbnchUniversity Hospitals St. John Medical Center Comment on above:Performed By: #### BMP #### [facility] ([id number]) [address], [address] [place] [address]Doxbgayhij [Mass/Vol]1.04 mg/dLNormal0.60-1.30[facility] Community HospitalComment on above:Result Comment: METHOD TRACEABLE TO IDMS STANDARD Performed By: #### BMP #### [facility] ([id number]) [address], [address] [place] [address]RJL/1.73 sq M.predicted among non-blacks MDRD (S/P/Bld) [Vol rate/Area]79 mL/min/{1.73_m2}Normal>59ProMethodist Texsan HospitalComment on above:Result Comment: Reported eGFR is based on the CKD-EPI 2020 equation that does not use a race coefficient.Performed By: #### BMP #### [facility] ([id number]) [address], [address] [place], [place] [address]Pdpwunf [Mass/Vol]142 mg/fVZmfi73-88WwdZtxafqMethodist Texsan Hospital Comment on above:Performed By: #### BMP #### [facility] ([id number]) [address], [address] [place], [place] [address]Iyejdiigo [Moles/Vol]4.2 mmol/LNormal3.5-5.0ProMethodist Texsan HospitalComment on above:Performed By: #### BMP #### [facility] ([id number]) [address], [address] [place], [place] [address]Alwbwq [Moles/Vol]141 mmol/BTmbsjx451-559GyrVbdhos Fremont HospitalComment on above:Performed By: #### BMP #### [facility] ([id number]) [address], [address] [place], [place] [address]Uklb nitrogen [Mass/Vol]27 mg/dLNormal5-27ProMethodist Texsan HospitalComment on above:Performed By: #### BMP #### [facility] ([id number]) [address], [address] [place], [place] [address]CB Hip - left 3 Viewson 18-14-6595Pjbhgie Result: Ap and Lateral left hip No acute fracture or dislocation Symmetric superior joint space narrowing and subchondral sclerosis of acetabulum Slight prominence to femoral head for possible cam deformity/ arthritic change. 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 [facility] HealthcareRadiology Study observation (narrative)[facility] HealthcareXR Knee - right 1 or 2 Viewson 45-04-2249Rcrvehb Result: AP and Lateral of right knee: Surgical position and alignment of prosthetic components without evidence of loosening or wear to femora, tibial or patellar components, The alignment appears to be anatomic. No evidence of accelerated or asymmetric wear to tibial tray or patella button. No evidence of fracture or dislocation. + prepatellar soft tissue swelling Impression: Unremarkable right total knee arthroplastyHannibal Regional Hospital HealthcareRadiology Study observation (narrative)[facility] HealthcareAMMONIAon 15-84-0849Ajoxghi (P) [Moles/Vol]11 umol/RHelggb59-32DntVnlzouProMedica Fostoria Community Hospital Comment on above:Performed By: #### 42059-5 #### [facility] ([id number]) [address] [place] [address] #### 2345-7, 45141-1, LIVR, 4086-5, CBCA, 2132-05 #### [facility] ([id number]) [address], [address] [place], [place] [address]ITK AND AUTO DIFFon 06-41-7317ZBYRYXJP BASOPHIL0.0 X10E9/LNormal 0.0-0.2PUniversity Hospitals St. John Medical CenterComment on above:Performed By: #### 02469-5 #### [facility] ([id number]) [address] [place] [address]25 #### 2345-7, 06881-2, LIVR, 4086-5, CBCA, 2132-05 #### [facility] ([id number]) [address] [facility], [address] [place], [place] [address]HMBMSMZQ NEUTROPHIL4.4 X10E9/LNormal1.5-6.6Pro[facility] Community HospitalComment on above:Performed By: #### 37547-4 #### [facility] ([id number]) [address] [place] [address]131 #### 2345-7, 53699-1, LIVR, 4086-5, CBCA, 2132-05 #### [facility] ([id number]) [address] [place] [address], [address] [place], [place] [address]Tvwwmzbpo/100 WBC (Bld)0.4 %NormalProMedica Fostoria Community Hospital Comment on above:Performed By: #### 10364-0 #### [facility] ([id number]) [address] [place] [address] #### 2345-7, 68331-1, LIVR, 4086-5, CBCA, 2132-05 #### [facility] ([id number]) [address], [address] [place], [place] [address]Dxlcaxrdzti (Bld) [#/Vol]0.3 10*3/uLNormal0.0-0.4Pro[facility]ica [facility]oria Community HospitalComment on above:Performed By: #### 87834-5 #### [facility] ([id number]) [address] [place] [address]9849 #### 2345-7, 17660-2, LIVR, 4086-5, CBCA, 2132-05 #### [facility] ([id number]) [address], [address] [place], [place] [address]Kgbytvffidp/100 WBC (Bld)3.7 %NormalProMethodist Texsan Hospital Comment on above:Performed By: #### 32825-3 #### [facility] ([id number]) [address] [place] [address]852 #### 2345-7, 21104-3, LIVR, 408-5, CBCA, 2132-05 #### [facility] ([id number]) [address], [address] [place], [place] [address]Apkirvzzvxl distribution width (RBC) [Ratio]15.3 %High11.5-15.0 [facility] Community HospitalComment on above:Performed By: #### 57037-7 #### [facility] ([id number]) [address] [place] [address] 29550 #### 2345-7, 83108-2, LIVR, 4086-5, CBCA, 2132-05 #### [facility] ([id number]) [address], [address] [place], [place] [address]Vayxfabpwx (Bld) [Volume fraction]40.0 %Gmboms33-15LqmXbbkgqMethodist Texsan HospitalComment on above:Performed By: #### 07241-1 #### [facility] ([id number]) [address] [place] [address]1620 #### 2345-7, 60571-4, LIVR, 4086-5, CBCA, 9 #### [facility] ([id number]) [address] [place], [place] [address]Xfpwjnwzlk (Bld) [Mass/Vol]13.3 g/sEBvdvdp14.0-17.0ProMethodist Texsan HospitalComment on above:Performed By: #### 33541-3 #### [facility] ([id number]) [address] [place] [address] #### 2345-7, 43423-2, LIVR, 4086-5, CBCA, 2132-05 #### [facility] ([id number]) [address] [place], [place] [address]Ahwvjvbmpmb (Bld) [#/Vol]1.6 10*3/uLNormal1.0-3.5PLallie Kemp Regional Medical Centerica Matt[facility] Children'S Hospital UclaComment on above:Performed By: #### 71089-0 #### [facility] ([id number]) [address] [place] [address]31 #### 2345-7, 88277-4, LIVR, 4086-5, CBCA, 2132-05 #### [facility] ([id number]) [address], [address] [place], [place] [address]Klbwzedkkup/100 WBC (Bld)22.5 %NormalProMethodist Texsan Hospital Comment on above:Performed By: #### 57060-7 #### [facility] ([id number]) [address] [place] [address] #### 2345-7, 65801-6, LIVR, 4086-5, CBCA, 2132-05 #### [facility] ([id number]) [address], [address] [place], [place] [address]XEY (RBC) [Entitic mass]31.0 qqQsbzvs35-61NrfRodhkrMethodist Texsan HospitalComment on above:Performed By: #### 55728-5 #### [facility] ([id number]) [address] [place] [address] #### 2345-7, 25221-9, LIVR, 4086-5, CBCA, 2132-05 #### [facility] ([id number]) [address], [address] [place], [place] [address]XHIN (RBC) [Mass/Vol]33.3 g/dSVfqwvr92-38EqwUvrtlwMethodist Texsan HospitalComment on above:Performed By: #### 91059-3 #### [facility] ([id number]) [address] [place] [address] #### 2345-7, 61793-9, LIVR, 4086-5, CBCA, 2132-05 #### [facility] ([id number]) [address], [address] [place], [place] [address]GUU (RBC) [Entitic vol]93 iQIxkidz74-258ZxeQgyskp Fremont HospitalComment on above:Performed By: #### 87997-7 #### [facility] ([id number]) [address] [place] [address] #### 2345-7, 86127-9, LIVR, 4086-5, CBCA, 2132-05 #### [facility] ([id number]) [address], [address] [place], [place] [address]Vssajxiwm (Bld) [#/Vol]0.9 10*3/uLNormal0-0.9ProMedica [facility]ostoria Community HospitalComment on above:Performed By: #### 03348-2 #### [facility] ([id number]) [address] [place] [address] #### 2345-7, 21683-5, LIVR, 4086-5, CBCA, 2132-05 #### [facility] ([id number]) [address], [address] [place], [place] [address]Somtawzua/100 WBC (Bld)13.1 %[facility] Comment on above:Performed By: #### 43227-8 #### [facility] ([id number]) [address] [place] [address] #### 2345-7, 26679-0, LIVR, 4086-5, CBCA, 2132-05 #### [facility] ([id number]) [address], [address] [place], [place] [address]Flnfbmyaokt/100 WBC (Bld)60.3 %[facility] Comment on above:Performed By: #### 21282-4 #### [facility] ([id number]) [address] [place] [address] #### 2345-7, 90369-1, LIVR, 4086-5, CBCA, 2132-05 #### [facility] ([id number]) [address], [address] [place], [place] [address]Wzhwepao mean volume (Bld) [Entitic vol]7.7 fLNormal7-12 [facility] UclaComment on above:Performed By: #### 85200-3 #### [facility] ([id number]) [address] [place] [address] #### 2345-7, 51152-3, LIVR, 4086-5, CBCA, 2132-05 #### [facility] ([id number]) [address], [address] [place], [place] [address]Ignbxfkfd (Bld) [#/Vol]273 10*3/aSWmbkcx346-772PxiOnowiyProMedica Fostoria Community HospitalComment on above:Performed By: #### 55300-2 #### [facility] ([id number]) [address] [place] [address] #### 2345-7, 50394-4, LIVR, 4086-5, CBCA, 2132-05 #### [facility] ([id number]) [address], [address] [place], [place] [address]NZI COUNT4.30 X10E12/LNormal4.10-5.70[facility] Comment on above:Performed By: #### 34836-2 #### [facility] ([id number]) [address] [place] [address] 99206 #### 2345-7, 13178-5, LIVR, 4086-5, CBCA, 2132-05 #### [facility] ([id number]) [address], [address] [place], [place] [address]WRM (Bld) [#/Vol]7.3 10*3/uLNormal4.0-11.0[facility] HospitalComment on above:Performed By: #### 35470-6 #### [facility] ([id number]) [address] [place] [address] #### 2345-7, 97081-9, LIVR, 4086-5, CBCA, 2132-05 #### [facility] ([id number]) [address], [address] [place], [place] [address]LP [Catalytic activity/Vol]on 34-12-4080HVB01 U/PTdfeyz92-888 [facility] HospitalComment on above:Performed By: #### 2157-6 #### [facility] ([id number]) [address], [address] [place] [address]XJACQALia 55-93-0174Pnwcpak [Mass/Vol]162 mg/qAIrep78-02 [facility] HospitalComment on above:Performed By: #### 73439-7 #### [facility] ([id number]) [address] [place] [address]8088 #### 2345-7, 94418-0, LIVR, 4086-5, CBCA, 2132-05 #### [facility] ([id number]) [address], [address] [place] [address]NEQSU PANELon 30-46-5076Hzviuwz [Mass/Vol]3.9 g/dLNormal3.2-5.3 [facility] HospitalComment on above:Performed By: #### 46965-4 #### [facility] ([id number]) [address] [place] [address] 11955 #### 2345-7, 26696-0, LIVR, 4086-5, CBCA, 2132-05 #### [facility] ([id number]) [address], [address] [place] [address]ADD [Catalytic activity/Vol]47 U/HPvpirh14-534FghOizbolMethodist Texsan HospitalComment on above:Performed By: #### 14057-7 #### [facility] ([id number]) [address] [place] [address] #### 2345-7, 74601-3, LIVR, 4086-5, CBCA, 2132-05 #### [facility] ([id number]) [address], [address] [place] [address]VHX [Catalytic activity/Vol]17 U/LNormal0-40ProMethodist Texsan HospitalComment on above:Performed By: #### 90851-6 #### [facility] ([id number]) [address] [place] [address] 81475 #### 2345-7, 21160-1, LIVR, 4086-5, CBCA, 2132-05 #### [facility] ([id number]) [address], [address] [place], [place] [address]RHW [Catalytic activity/Vol]16 U/LNormal0-41ProMethodist Texsan HospitalComment on above:Performed By: #### 65493-9 #### [facility] ([id number]) [address] [place] [address]1485 #### 2345-7, 03931-4, LIVR, 4086-5, CBCA, 2132-05 #### [facility] ([id number]) [address], [address] [place], [place] [address]Onfjpnvro [Mass/Vol]0.3 mg/dLNormal0.3-1.2ProMedSierra Kings HospitalComment on above:Performed By: #### 00628-5 #### [facility] ([id number]) [address] [place] [address] 80687 #### 2345-7, 06377-6, LIVR, 4086-5, CBCA, 2132-05 #### [facility] ([id number]) [address], [address] [place], [place] [address]Kgdmvzhhk.direct [Mass/Vol]0.0 mg/dLNormal0.0-0.4ProMethodist Texsan HospitalComment on above:Performed By: #### 72073-1 #### [facility] ([id number]) [address] [place] [address]152 #### 2345-7, 84745-2, LIVR, 4086-5, CBCA, 2132-05 #### [facility] ([id number]) [address], [address] [place] [address]Epyopao [Mass/Vol]7.2 g/dLNormal6.0-8.0ProMethodist Texsan HospitalComment on above:Performed By: #### 61978-7 #### [facility] ([id number]) [address] [place] [address]85 #### 2345-7, 19138-1, LIVR, 4086-5, CBCA, 2132-05 #### [facility] ([id number]) [address], [address] [place] [address]Xpplb 1996 panelon 17-85-4212Cmwdpxnjqpz [Mass/Vol]137 mg/dLLow 150-200ProMethodist Texsan HospitalComment on above:Performed By: #### 15329-5 #### [facility] ([id number]) [address] [place] [address] 10582 #### 2345-7, 95869-2, LIVR, 4086-5, CBCA, 2132-05 #### [facility] ([id number]) [address], [address] [place], [place] [address]Pyipwckarcd in HDL [Mass/Vol]42 mg/dLNormal>39ProMethodist Texsan HospitalComment on above:Result Comment: HDL <40 mg/dL - High Risk HDL > or = 40mg/dL- Desirable HDL >60 mg/dL - Negative Risk Performed By: #### 36615-2 #### [facility] ([id number]) [address] [place] [address] 19132 #### 2345-7, 63455-7, LIVR, 4086-5, CBCA, 2132-05 #### [facility] ([id number]) [address], [address] [place], [place] [address]Yxkaemxqsit in LDL [Mass/Vol]62 mg/dLNormal<130ProMethodist Texsan HospitalComment on above:Result Comment: LDL <100 mg/dL - Desirable LDL >160 mg/dL - High Risk Performed By: #### 43450-2 #### [facility] ([id number]) [address] [place] [address] 50077 #### 2345-7, 18613-3, LIVR, 4086-5, CBCA, 2132-05 #### [facility] ([id number]) [address], [address] [place] [address]Dihlfnmuzbk in VLDL [Mass/Vol]33 mg/dLHigh0-30ProMethodist Texsan HospitalComment on above:Performed By: #### 92650-7 #### [facility] ([id number]) [address] [place] [address]130 #### 2345-7, 53732-3, LIVR, 4086-5, CBCA, 2132-05 #### [facility] ([id number]) [address], [address] [place], [place] [address]NOZCAUUSWJZ:HDL3.0Stvwfl1.0-5.0ProMethodist Texsan HospitalComment on above:Performed By: #### 12037-5 #### [facility] ([id number]) [address] [place] [address] 69417 #### 2345-7, 15535-0, LIVR, 4086-5, CBCA, 2132-05 #### [facility] ([id number]) [address], [address] [place] [address]Jqnqfhghtxux [Mass/Vol]166 mg/bAPnhk18-067HdkOvzmfr [facility] Hospital UclaComment on above:Performed By: #### 25102-0 #### [facility] ([id number]) [address] [place] [address] 10506 #### 2345-7, 54923-9, LIVR, 4086-5, CBCA, 2131-9 #### [facility] ([id number]) [address] [place] [address], [address] [place], [place] [address]ZLRLXKA B12on 48-26-7324Erewavwyp (Vitamin B12) [Mass/Vol]601 pg/bARxnsqr438-323QyhTawqlo [facility] Hospital UclaComment on above:Performed By: #### 11499-8 #### [facility] ([id number]) [address] [place] [address] 80351 #### 2345-7, 56292-2, LIVR, 4086-5, CBCA, 2132-05 #### [facility] ([id number]) [address] [place] [address], [address] [place], [place] [address]Bpfbkdets [Mass/Vol]on 86-47-4223IJZBIZXF ACID38 ug/rDRpv97-712 [facility] Hospital UclaComment on above:Performed By: #### 76835-7 #### [facility] ([id number]) [address] [place] [address] 01826 #### 2345-7, 74227-5, LIVR, 4086-5, CBCA, 2132-05 #### [facility] ([id number]) [address] [place] [address], [address] [place], [place] [address]Qpepq Natri. Peptideon 37-92-0465Vilmglumekh peptide B (Bld) [Mass/Vol]186 pg/mLHigh0-125[facility] NorthComment on above:Performed By: #### CP, CDP, BNP, TROPI #### [facility] [address] [place] [address] [place] [address] Child Care Associate Teacher: Lula Melendez MDBrain Natriuretic Peptideon 80-02-5838Ojhkcxlclbu peptide B (Bld) [Mass/Vol]186 pg/mLHigh0 - 125 pg/mLBon [facility]-FairhillCBC with Auto Differentialon 14-50-9315Uibunutzc (Bld) [#/Vol]0.04 10*3/uLBon [facility]-FairhillBasophils/100 WBC (Bld)1 %0 - 2 %[facility] Eosinophils (Bld) [#/Vol]0.26 10*3/uLBon Secours Kettering Health PrebleEosinophils/100 WBC (Bld)4 %1 - 4 %[facility] SystemErythrocyte distribution width (RBC) [Ratio]15.3 %High11.8 - 14.4 %[facility] SystemHematocrit (Bld) [Volume fraction]39.5 %Low40.7 - 50.3 %[facility] SystemHemoglobin (Bld) [Mass/Vol]12.8 g/dLLow13.0 - 17.0 g/dLBon SecAultman Orrville HospitalImmature granulocytes (Bld) [#/Vol]0.06 10*3/uLBon SecAultman Orrville HospitalImmature granulocytes/100 WBC (Bld)1 %Qesq1Vxo SecAultman Orrville HospitalInterpretation and review of laboratory resultsAbnormalBon SecAultman Orrville HospitalLymphocytes/100 WBC (Bld)21 %Low24 - 43 %[facility] SystemLymphocytes/100 WBC (Bld)1.59 %[facility] CenterH (RBC) [Entitic mass]30.7 pg25.2 - 33.5 pgBon [facility] Medical CenterHC (RBC) [Mass/Vol]32.4 g/dL28.4 - 34.8 g/dLBon SecCleveland Clinic Lutheran HospitalV (RBC) [Entitic vol]94.7 fL82.6 - 102.9 fLWellmont Health System Monocytes/100 WBC (Bld)13 %High3 - 12 %[facility] SystemMonocytes/100 WBC (Bld)0.94 %[facility] SystemNeutrophils/100 WBC (Bld)60 %36 - 65 %[facility] SystemNucleated RBC/100 WBC (Bld) [Ratio]0.0 %0.0 per 100 WBCWellmont Health SystemPlatelet mean volume (Bld) [Entitic vol]9.3 fL8.1 - 13.5 fL [facility] SystemPlatelets (Bld) [#/Vol]231 10*3/uLWellmont Health SystemRBC (Bld) [#/Vol]4.17 10*6/uLLow4.21 - 5.77 m/[facility] Segmented neutrophils/100 WBC (Bld)4.56 %[facility] SystemWBC other (Bld) [#/Vol]7.5Bon [facility] HospitalCBC with Diffon 77-10-8199Gcq. Basophil0.04 k/uLNormal0.00-0.20[facility] - [facility] NorthComment on above:Performed By: #### CP, CDP, BNP, TROPI #### [address] [place] [address] Child Care Associate Teacher: Abhishek Iyer.Imm.Granulocyte0.06 k/uLNormal0.00-0.30[facility] - [facility] NorthComment on above:Performed By: #### CP, CDP, BNP, TROPI #### [address] [place] [address] Child Care Associate Teacher: Abhishek Iyer.Neutrophil (Seg)4.56 k/uLNormal1.50-8.10[facility] - [facility] NorthComment on above:Performed By: #### CP, CDP, BNP, TROPI #### [address] [place] [address] Child Care Associate Teacher: Lula Melendez MDBasophils/100 WBC (Bld)1 %Normal0-2MercMarietta Osteopathic Clinic HospitalComment on above:Performed By: #### CP, CDP, BNP, TROPI #### [address] [place], [facility]83 Child Care Associate Teacher: Lula Melendez MDEosinophils (Bld) [#/Vol]0.26 10*3/uLNormal 0.00-0.44[facility] - [facility] NorthComment on above:Performed By: #### CP, CDP, BNP, TROPI #### [address] [place], [place] [address] Child Care Associate Teacher: Lula Melendez MDEosinophils/100 WBC (Bld)4 %Normal1-4[facility] - [facility] NorthComment on above:Performed By: #### CP, CDP, BNP, TROPI #### [address] [place], [facility]83 Child Care Associate Teacher: Lula Melendez MDErythrocyte distribution width (RBC) [Ratio]15.3 % High11.8-14.4[facility] HospitalComment on above:Performed By: #### CP, CDP, BNP, TROPI #### [address] [place], [place] [address] Child Care Associate Teacher: Lula Melendez MDHematocrit (Bld) [Volume fraction]39.5 %Low 40.7-50.3[facility] HospitalComment on above:Performed By: #### CP, CDP, BNP, TROPI #### [address] [place], [place] [address] Child Care Associate Teacher: Lula Melendez MDHemoglobin (Bld) [Mass/Vol]12.8 g/dLLow13.0-17.0 [facility] NorthComment on above:Performed By: #### CP, CDP, BNP, TROPI #### [address] [place], [facility]83 Child Care Associate Teacher: Lula Melendez MDImmature granulocytes/100 WBC (Bld)1 %Ccov9Bxsea Little Rock HospitalComment on above:Performed By: #### CP, CDP, BNP, TROPI #### [address] [place] [address] Child Care Associate Teacher: Kathleen Iyermphocytdavid (Bld) [#/Vol]1.59 10*3/uLNormal 1.10-3.70[facility] - [facility] NorthComment on above:Performed By: #### CP, CDP, BNP, TROPI #### [address] [place] [address] Child Care Associate Teacher: Giancarlo Iyercytdavid/100 WBC (Bld)21 %Jty56-68RofnoSelect Medical Specialty Hospital - Cincinnati NorthComment on above:Performed By: #### CP, CDP, BNP, TROPI #### [address] [place], [facility]83 Child Care Associate Teacher: TERRY Iyer (RBC) [Entitic mass]30.7 ttBjrxby00.2-33.5 [facility] HospitalComment on above:Performed By: #### CP, CDP, BNP, TROPI #### [address] [place], [place] [address] Child Care Associate Teacher: TERRY IyerC (RBC) [Mass/Vol]32.4 g/aGQqjgaj34.4-34.8[facility] - [facility] NorthComment on above:Performed By: #### CP, CDP, BNP, TROPI #### [address] [place], [place] [address] Child Care Associate Teacher: RADHA IyerCV (RBC) [Entitic vol]94.7 yDFqitvl92.6-102.9 [facility] HospitalComment on above:Performed By: #### CP, CDP, BNP, TROPI #### [address] [place] [address] Child Care Associate Teacher: Lula Sturtz, MDMonocytes (Bld) [#/Vol]0.94 10*3/uLNormal0.10-1.20 [facility] NorthComment on above:Performed By: #### CP, CDP, BNP, TROPI #### [address] [place] [address] Child Care Associate Teacher: RADHA Iyeronocytes/100 WBC (Bld)13 %High3-12[facility] NorthComment on above:Performed By: #### CP, CDP, BNP, TROPI #### [address] [place] [address] Child Care Associate Teacher: Melanie Iyerophil (Seg)60 %Neilej06-76FkkkbSelect Medical Specialty Hospital - Cincinnati NorthComment on above:Performed By: #### CP, CDP, BNP, TROPI #### [address] [place] [address] Child Care Associate Teacher: Lula Melendez MDNRBC Automated0.0 per 100 WBCNormal0.0[facility] - [facility] NorthComment on above:Performed By: #### CP, CDP, BNP, TROPI #### [address] [place] [address] Child Care Associate Teacher: FAZAL Iyerlatelet mean volume (Bld) [Entitic vol]9.3 fL Normal8.1-13.5[facility] NorthComhenry ford hospital on above:Performed By: #### CP, CDP, BNP, TROPI #### [address] [place] [address] Child Care Associate Teacher: FAZAL Iyerlatelets (Bld) [#/Vol]231 10*3/vMQzefdi430-326 [facility] NorthComment on above:Performed By: #### CP, CDP, BNP, TROPI #### [address] [place] [address] Child Care Associate Teacher: NOREEN Iyer ([facility]) [#/Vol]4.17 10*6/uLLow4.21-5.77[facility] HospitalComment on above:Performed By: #### CP, CDP, BNP, TROPI #### [facility] [address] [place] [address] Child Care Associate Teacher: JUSTO Iyer ([facility]) [#/Vol]7.5 10*3/uLNormal3.5-11.3[facility] HospitalComment on above:Performed By: #### CP, CDP, BNP, TROPI #### [facility] [address] [place] [address] Child Care Associate Teacher: Lula Melendez [facility] 87-54-5006Tfgsnqm [Mass/Vol]3.7 g/dL3.5 - 5.2 g/dLBon [facility]-FairhillAlbumin/Globulin [Mass ratio]1.3 {ratio}1.0 - 2.5Bon [facility]New [facility] HealthALP [Catalytic activity/Vol]49 U/L40 - 129 U/LBon SecNew Orleans [facility] Hospital HealthALT [Catalytic activity/Vol]16 U/L10 - 50 U/LBon [facility]-FairhillAnion gap [Moles/Vol]11 mmol/L9 - 16 mmol/LBon [facility] AST [Catalytic activity/Vol]14 U/L10 - 50 U/LBon [facility]-FairhillBilirubin [Mass/Vol]0.2 mg/dL0.00 - 1.20 mg/dLBon [facility]-FairhillCalcium [Mass/Vol] 8.6 mg/dL8.6 - 10.4 mg/dLBon [facility]ours [facility] Hospitaly HealthChloride [Moles/Vol]105 mmol/L 98 - 107 mmol/LBon [facility] HealthCO2 [Moles/Vol]24 mmol/L20 - 31 mmol/LBon [facility]-FairhillCreatinine [Mass/Vol]1.0 mg/dL0.70 - 1.20 mg/dLBon [facility]-FairhillEst, Glom Filt Rate88- PINFBon [facility] on above: These results are not intended [...] therapy that affects renal tubular secretion. Glucose [Mass/Vol]125 mg/qLTwpf07 - 99 mg/dLBon [facility]-FairhillPotassium [Moles/Vol]4.0 mmol/L3.7 - 5.3 mmol/LBon [facility] HealthProtein [Mass/Vol] 6.5 g/dLLow6.6 - 8.7 g/dLBon [facility]-FairhillSodium [Moles/Vol]140 mmol/L136 - 145 mmol/LBon [facility]-FairhillUrea nitrogen [Mass/Vol]27 mg/dLHigh8 - 23 mg/dLBon [facility]-FairhillUrea nitrogen/Creatinine [Mass ratio]27 mg/mgHigh9 - 20Bon [facility] Hospitalp Metabolic Profon 54-43-7971Zqolfdv [Mass/Vol] 3.7 g/dLNormal3.5-5.2[facility] HospitalComment on above:Performed By: #### CP, CDP, BNP, TROPI #### [address] [place] [address] Child Care Associate Teacher: Lula Melendez MDAlbumin/Glob Ratio1.8Okrgwj6.0-2.5[facility] NorthComhenry ford hospital on above:Performed By: #### CP, CDP, BNP, TROPI #### [facility] [address] [place] [address] [place] [address] Child Care Associate Teacher: Uzma Iyerkaline Phos49 U/QYljunq15-942CcdyeSelect Medical Specialty Hospital - Cincinnati NorthComhenry ford hospital on above:Performed By: #### CP, CDP, BNP, TROPI #### [address] [place] [address] Child Care Associate Teacher: Lula Sturtz, MDALT [Catalytic activity/Vol]16 U/WWnbizk47-41NoejtSelect Medical Specialty Hospital - Cincinnati NorthComment on above:Performed By: #### CP, CDP, BNP, TROPI #### [address] [place], [place] 20[address]183 Child Care Associate Teacher: Lula Melendez MDAnion gap [Moles/Vol]11 mmol/LNormal9-16[facility] HospitalComment on above:Performed By: #### CP, CDP, BNP, TROPI #### [address] [place] [address] Child Care Associate Teacher: Lula Melendez MDAST [Catalytic activity/Vol]14 U/BXdlypk14-67VqhjeSelect Medical Specialty Hospital - Cincinnati NorthComment on above:Performed By: #### CP, CDP, BNP, TROPI #### [address] [place], [place] [address]83 Child Care Associate Teacher: Lula Melendez MDBilirubin [Mass/Vol]0.2 mg/dLNormal0.00-1.20MerNew Milford HospitalComment on above:Performed By: #### CP, CDP, BNP, TROPI #### [address] [place] [address] Child Care Associate Teacher: Lula Melendez MDBUN/CRE Jntjj56Wcyu8-18AfuvcSelect Medical Specialty Hospital - [facility] North Comment on above:Performed By: #### CP, CDP, BNP, TROPI #### [address] [place] [address] Child Care Associate Teacher: Lula Melendez MDCalcium [Mass/Vol]8.6 mg/dLNormal8.6-10.4[facility] NorthComment on above:Performed By: #### CP, CDP, BNP, TROPI #### [address] [place] [address] Child Care Associate Teacher: Lula Melendez MDChloride [Moles/Vol]105 mmol/OQgtavw01-255OphglSelect Medical Specialty Hospital - Cincinnati NorthComment on above:Performed By: #### CP, CDP, BNP, TROPI #### [address] [place] [address] Child Care Associate Teacher: ARLEN IyerO2 [Moles/Vol]24 mmol/OLgbyqx02-70WyrjhSelect Medical Specialty Hospital - Cincinnati NorthComment on above:Performed By: #### CP, CDP, BNP, TROPI #### [address] [place] 217[address]83 Child Care Associate Teacher: ARLEN Iyerreatinine [Mass/Vol]1.0 mg/dLNormal0.70-1.20[facility] NorthComment on above:Performed By: #### CP, CDP, BNP, TROPI #### [address] [place] [address] Child Care Associate Teacher: Lula Melendez MDGFR/1.73 sq M.predicted among non-blacks MDRD (S/P/Bld) [Vol rate/Area]88 mL/min/{1.73_m2}Normal>60[facility] Comment on above:Result Comment: These results are not intended for [...] or following therapy that affects renal tubular secretion.Performed By: #### CP, CDP, BNP, TROPI #### [address] [place], [place] [address]83 Child Care Associate Teacher: Lula Melendez MDGlucose [Mass/Vol]125 mg/sLCvhh84-39IlqfkFirelands Regional Medical Center South CampusComment on above:Performed By: #### CP, CDP, BNP, TROPI #### [address] [place] [address]83 Child Care Associate Teacher: Lula Sturtz, MDPotassium [Moles/Vol]4.0 mmol/LNormal3.7-5.3MFirelands Regional Medical Center South CampusComment on above:Performed By: #### CP, CDP, BNP, TROPI #### [address] [place], [place] [address]383 Child Care Associate Teacher: Lula Melendez MDProtein [Mass/Vol]6.5 g/dLLow6.6-8.7[facility] NorthComment on above:Performed By: #### CP, CDP, BNP, TROPI #### [address] [place], [place] [address] Child Care Associate Teacher: Lula Melendez MDSodium [Moles/Vol]140 mmol/KBwltwh756-052JywrqSelect Medical Specialty Hospital - Cincinnati NorthComment on above:Performed By: #### CP, CDP, BNP, TROPI #### [address] [place], [place] 377[address]83 Child Care Associate Teacher: Lula Melendez MDUrea nitrogen [Mass/Vol]27 mg/dLHigh8-23[facility] NorthComment on above:Performed By: #### CP, CDP, BNP, TROPI #### [address] [place], [place] [address] Child Care Associate Teacher: Lula Melendez MDNo Panel Informationon 58-56-2584Fwqpxclniuaaly and review of laboratory resultsAbnormalBon [facility] Hospital-Sioux Fallsoponinon 28-10-0086Fmpdccgcrjdbxp and review of laboratory results AbnormalWythe County Community Hospitaln I.cardiac High sensitivity method [Mass/Vol]24 ng/LHigh0 - 22 ng/LBon [facility] on above:High Sensitivity Troponin values cannot be compared with other Troponin methodologies.Bon [facility]tering Arms Hospitalnin, High Sens24 ng/LHigh0-22[facility] NorthComhenry ford hospital on above:Result Comment: High Sensitivity Troponin values cannot be compared with other Troponin methodologies.Performed By: #### TROPI #### [place] [address] [place], [place] 194[address]83 Child Care Associate Teacher: Willi Iyer I.cardiac High sensitivity method [Mass/Vol]23 ng/LHigh0 - 22 ng/LBon Secours Kettering Health PrebleComment on above:High Sensitivity Troponin values cannot be compared with other Troponin methodologies.Troponin, High Sens23 ng/LHigh0-22[facility] on above:Result Comment: High Sensitivity Troponin values cannot be compared with other Troponin methodologies.Performed By: #### CP, CDP, BNP, TROPI #### [facility] [address] [place] [address] Child Care Associate Teacher: TANNER IyerR CHEST (2 VW)on 56-43-9461TV CHEST (2 VW) EXAMINATION: TWO XRAY VIEWS [...] Signed by: Capri Rios MD 08/26/24 Final resultNormalMerNew Milford HospitalXR Chest 2 Viewson 25-46-6329Tpxf lower lobe infiltrate suspicious for pneumonia. [facility] CONSOLIDATEDEXAMINATION: TWO XRAY VIEWS OF THE CHEST 08/26/2024 12:10 pm COMPARISON: None. HISTORY: ORDERING SYSTEM PROVIDED HISTORY: leg swelling TECHNOLOGIST PROVIDED HISTORY: leg swelling FINDINGS: There is left lower lobe infiltrate suspicious for pneumonia. The lungs otherwise are clear. Heart appears normal. Patient is status post sternotomy. There are old healed fractures of the right 6th and 7th ribs. Visualized upper abdomen appears normal. [facility] Capri Carrillo MD - 08/26/2024 EXAMINATION: TWO XRAY VIEWS [...] Left lower lobe infiltrate suspicious for pneumonia. [facility] CenterNode Management The Political StudentRadiology Study observation (narrative)[facility]2 MinutesXR Chest 2 ViewsOrdered By: Capri Rios on [id number] Sec2 Minutes Work Phone: Lipid Panelon [id number] [Mass/Vol]132 mg/dL0 - 199 mg/dLBon Arizona State HospitalTradeTools FX Protestant HospitalComment on above: Cholesterol Guidelines: <200 Desirable 200-240 Borderline >240 Undesirable Cholesterol in HDL [Mass/Vol]41 mg/dL40 - PINF mg/dLBon [facility]2 Minutes Comment on above: HDL Guidelines: <40 Undesirable 40-59 Borderline >59 Desirable Cholesterol in LDL [Mass/Vol]55 mg/dL0 - 100 mg/dLBon [facility]2 Minutes Comment on above: LDL Guidelines: <100 Desirable 100-129 Near to/above Desirable 130-159 Borderline >159 Undesirable Direct (measured) LDL and calculated LDL are not interchangeable tests. Cholesterol in VLDL [Mass/Vol]36 mg/dLHigh1 - 30 mg/dLBon [facility]2 Minutes Cholesterol.total/Cholesterol in HDL [Mass ratio]3.2 {ratio}[facility] Sensitive ObjectInterpretation and review of laboratory resultsAbnormalBon [facility]2 MinutesTriglyceride [Mass/Vol]179 mg/dLHighNINF - 150 mg/dLBon [facility] State HospitalTradeTools FX Protestant HospitalComment on above: Triglyceride Guidelines: <150 Desirable 150-199 Borderline 200-499 High >499 Very high Based on AHA Guidelines for fasting triglyceride, June 2012. [facility] Sensitive ObjectLipid Profileon 33-13-7085Mjjhylujuja [Mass/Vol]132 mg/dLNormal0-199[facility] NorthComment on above:Result Comment: Cholesterol Guidelines: <200 Desirable 200-240 Borderline >240 UndesirablePerformed By: #### LIPR #### [employer] [address] [place] [address] Child Care Associate Teacher: ARLEN Metzholesterol in HDL [Mass/Vol]41 mg/dLNormal>40 [facility] NorthComhenry ford hospital on above:Result Comment: HDL Guidelines: <40 Undesirable 40-59 Borderline >59 DesirablePerformed By: #### LIPR #### [address] [address] Child Care Associate Teacher: ARLEN Metzholesterol in LDL [Mass/Vol]55 mg/dLNormal0-100 [facility] NorthComment on above:Result Comment: LDL Guidelines: <100 Desirable 100-129 Near to/above Desirable 130-159 Borderline >159 Undesirable Direct (measured) LDL and calculated LDL are not interchangeable tests.Performed By: #### LIPR #### [facility] [employer] [address] [place] [address] Child Care Associate Teacher: ARLEN Metzholesterol in VLDL [Mass/Vol]36 mg/dLHigh1-30 [facility] NorthComment on above:Performed By: #### LIPR #### [facility] [employer] [address] [place] [address] Child Care Associate Teacher: Bassem Metz.total/Cholesterol in HDL [Mass ratio]3.2 {ratio}NormalSelect Medical Specialty Hospital - [facility] NorthComhenry ford hospital on above:Performed By: #### LIPR #### [facility] [employer] [address] [place] [address] Child Care Associate Teacher: Irina Mccullough MDTriglyceride [Mass/Vol]179 mg/dLHigh<150[facility] Centercy [facility] Memorial HospitalComment on above:Result Comment: Triglyceride Guidelines: <150 Desirable 150-199 Borderline 200-499 High >499 Very high Based on AHA Guidelines for fasting triglyceride, June 2012.Performed By: #### LIPR #### [facility] [employer] [address] [place] [address] Child Care Associate Teacher: SHELBY Metz Hemoglobin A1con 58-74-5638BxV6z (Bld) [Mass fraction]7.4 %Abnormal4 - 7 %ProMedica Health SystemInterpretation and review of laboratory resultsAbnormalClarion HospitalCBC AND AUTO DIFFon 32-09-6460DLZBUHKD BASOPHIL0.0 X10E9/LNormal0.0-0.2 [facility] Ruby [facility] HospitalComment on above:Performed By: #### 3040-3, CMP, CBCA #### [facility] ([id number]) [address], [address] [place], [place] [address]MXONWWHR NEUTROPHIL6.0 X10E9/LNormal1.5-6.6ProFisher-Titus Medical CenterComment on above:Performed By: #### 3040-3, CMP, CBCA #### [facility] ([id number]) [address], [address] [place], [place] [address]Hzavzfect/100 WBC (Bld)0.3 %[facility] Comment on above:Performed By: #### 3040-3, CMP, CBCA #### [facility] ([id number]) [address], [address] [place], [place] [address]Rujzdhzrkiz (Bld) [#/Vol]0.1 10*3/uLNormal0.0-0.4J.[facility]. Ruby Memorial HospitalComment on above:Performed By: #### 3040-3, CMP, CBCA #### [facility] ([id number]) [address], [address] [place], [place] [address]Fgbvfdphbdv/100 WBC (Bld)1.6 %[facility] Comment on above:Performed By: #### 3040-3, CMP, CBCA #### [facility] ([id number]) [address], [address] [place], [place] [address]Hydfmxqbctb distribution width (RBC) [Ratio]15.6 %High11.5-15.0 [facility] Ruby Memorial HospitalComment on above:Performed By: #### 3040-3, CMP, CBCA #### [facility] ([id number]) [address], [address] [place], [place] [address]Idjnznkvhz (Bld) [Volume fraction]41.4 %Xvydhq84-37LjjVczrwl [facility] HospitalComment on above:Performed By: #### 3040-3, CMP, CBCA #### [facility] ([id number]) [address], [address] [place], [place] [address]Dhbbjlogzs (Bld) [Mass/Vol]14.1 g/tUItmutc17.0-17.0ProBluffton Hospitalca Pearce HospitalComment on above:Performed By: #### 3040-3, CMP, CBCA #### [facility] ([id number]) [address], [address] [place], [place] [address]Xgqqspsmouk (Bld) [#/Vol]1.5 10*3/uLNormal1.0-3.5ProMedica Pearce HospitalComment on above:Performed By: #### 3040-3, CMP, CBCA #### [facility] ([id number]) [address], [address] [place], [place] [address]Gnpjhecoewc/100 WBC (Bld)17.8 %NormalProSt. Elizabeth Hospital Hospital Comment on above:Performed By: #### 3040-3, CMP, CBCA #### [facility] ([id number]) [address], [address] [place], [place] [address]QVD (RBC) [Entitic mass]31.3 zfLolntk89-51YehJqksuu Pearce HospitalComment on above:Performed By: #### 3040-3, CMP, CBCA #### [facility] ([id number]) [address], [address] [place], [place] [address]STAN (RBC) [Mass/Vol]34.1 g/cSClgccz33-97VyoBfqeif Pearce HospitalComment on above:Performed By: #### 3040-3, CMP, CBCA #### [facility] ([id number]) [address], [address] [place], [place] [address]TGV (RBC) [Entitic vol]92 vHHynjvb70-904TrwZhxpxv Pearce HospitalComment on above:Performed By: #### 3040-3, CMP, CBCA #### [facility] ([id number]) [address], [address] [place], [place] [address]Ebofzxnbn (Bld) [#/Vol]0.7 10*3/uLNormal0-0.9ProMedica Pearce HospitalComment on above:Performed By: #### 3040-3, CMP, CBCA #### [facility] ([id number]) [address], [address] [place], [place] [address]Wtanklbgi/100 WBC (Bld)8.8 %NormalJ.W. Ruby Memorial Hospital Comment on above:Performed By: #### 3040-3, CMP, CBCA #### [facility] ([id number]) [address], [address] [place], [place] [address]Jcqlqlfqgmk/100 WBC (Bld)71.5 %[facility] Comment on above:Performed By: #### 3040-3, CMP, CBCA #### [facility] ([id number]) [address], [address] [place], [place] [address]Nhspxhxd mean volume (Bld) [Entitic vol]7.1 fLNormal7-12 [facility]ica Pearce HospitalComment on above:Performed By: #### 3040-3, CMP, CBCA #### [facility] ([id number]) [address], [address] [place], [place] [address]Whztvflre (Bld) [#/Vol]244 10*3/wXTluonf334-457WgwXygljz Pearce HospitalComment on above:Performed By: #### 3040-3, CMP, CBCA #### [facility] ([id number]) [address], [address] [place], [place] [address]RSY COUNT4.51 X10E12/LNormal4.10-5.70ProFisher-[facility] Comment on above:Performed By: #### 3040-3, CMP, CBCA #### [facility] ([id number]) [address], [address] [place], [place] [address]QTB (Bld) [#/Vol]8.4 10*3/uLNormal4.0-11.0ProSt. Elizabeth Hospital HospitalComment on above:Performed By: #### 3040-3, CMP, CBCA #### [facility] ([id number]) [address], [address] [place], [place] [address]CVTPLZHMTYUGY METABOLIC PANELon 34-67-9624Pvsabgg [Mass/Vol]4.1 g/dLNormal3.2-5.3ProMedica Pearce HospitalComment on above:Performed By: #### 3040-3, CMP, CBCA #### [facility] ([id number]) [address], [address] [place] [address]WIH [Catalytic activity/Vol]46 U/ZVrmhfz15-732RfxHuuoda [facility] HospitalComment on above:Performed By: #### 3040-3, CMP, CBCA #### [facility] ([id number]) [address], [address] [place], [place] [address]JYG [Catalytic activity/Vol]23 U/LNormal0-40ProBluffton Hospitalca Pearce HospitalComment on above:Performed By: #### 3040-3, CMP, CBCA #### [facility] ([id number]) [address], [address] [place], [place] [address]Wflbe gap [Moles/Vol]8 mmol/LNormal5-15ProSt. Elizabeth Hospital Hospital Comment on above:Performed By: #### 3040-3, CMP, CBCA #### [facility] ([id number]) [address], [address] [place] [address]ZFI [Catalytic activity/Vol]18 U/LNormal0-41ProSt. Elizabeth Hospital HospitalComment on above:Performed By: #### 3040-3, CMP, CBCA #### [facility] ([id number]) [address], [address] [place], [place] [address]Eksenkcdl [Mass/Vol]0.3 mg/dLNormal0.3-1.2ProMedCleveland Clinic Euclid Hospital HospitalComment on above:Performed By: #### 3040-3, CMP, CBCA #### [facility] ([id number]) [address], [address] [place], [place] [address]Hkiivwt [Mass/Vol]9.1 mg/dLNormal8.5-10.5ProMedCleveland Clinic Euclid Hospital HospitalComment on above:Performed By: #### 3040-3, CMP, CBCA #### [facility] ([id number]) [address], [address] [place], [place] [address]Nylatkav [Moles/Vol]106 mmol/YIbmvvs56-734TheJaqhmp [facility] HospitalComment on above:Performed By: #### 3040-3, CMP, CBCA #### [facility] ([id number]) [address], [address] [place], [place] [address]UT4 [Moles/Vol]26 mmol/GPqwqur75-96KpxOkigbn [facility] Comment on above:Performed By: #### 3040-3, CMP, CBCA #### [facility] ([id number]) [address], [address] [place], [place] [address]Dfxwxbbsra [Mass/Vol]0.78 mg/dLNormal0.60-1.30ProBluffton Hospitalca Pearce HospitalComment on above:Result Comment: METHOD TRACEABLE TO IDMS STANDARD Performed By: #### 3040-3, CMP, CBCA #### [facility] ([id number]) [address], [address] [place], [place] [address]pKOE (CKD-EPI) NON-RACE DEPENDENT>90Normal>59ProSt. Elizabeth Hospital HospitalComment on above:Result Comment: Reported eGFR is based on the CKD-EPI 1 equation that does not use a race coefficient.Performed By: #### 3040-3, CMP, CBCA #### [facility] ([id number]) [address] [address] [place], [place] [address]Yoqrhbe [Mass/Vol]142 mg/wWJbym10-54ZjjUkacotFisher-Titus Medical Center Comment on above:Performed By: #### 3040-3ANUP, CBCA #### [facility] ([id number]) [address], [facility] [address] [place], [place] [address]Deeedkqiv [Moles/Vol]4.1 mmol/LNormal3.5-5.0ProFisher-Titus Medical CenterComment on above:Performed By: #### 3040-3, CMP, CBCA #### [facility] ([id number]) [address] [address] [place], [place] [address]Lheawek [Mass/Vol]7.1 g/dLNormal6.0-8.0[facility] Comment on above:Performed By: #### 3040-3, CMP, CBCA #### [facility] ([id number]) [address], [address] [place], [place] [address]Fyzxsp [Moles/Vol]140 mmol/BRiwgxt816-277FzgOplzlo [place] HospitalComment on above:Performed By: #### 3040-3, CMP, CBCA #### [facility] ([id number]) [address] [address] [place], [place] [address]Xvzc nitrogen [Mass/Vol]20 mg/dLNormal5-27ProSt. Elizabeth Hospital HospitalComment on above:Performed By: #### 3040-3, CMP, CBCA #### [facility] ([id number]) [address], [address] [place], [place] [address]Odzoshn Glucometer (BldC) [Mass/Vol]on 33-78-3908Fokadzh [Mass/Vol]108 mg/uTEwdl67-09TqtYvvtnkFisher-Titus Medical CenterLIPASEon 40-16-4907Xenlyg [Catalytic activity/Vol]38 U/BLpuywc92-97FutEteeovFisher-Titus Medical CenterComment on above:Performed By: #### 3040-3, CMP, CBCA #### [facility] ([id number]) [address], [address] [place], [place] [address]ZY CERVICAL SPINE WO CONTon 04-43-1457EN CERVICAL SPINE WO CONT MR CERVICAL SPINE [...] Finalized by Nathan Agee on 06/10/2024 6:04 [facility] MR LUMBAR SPINE WO CONTon 35-49-8434TK LUMBAR SPINE WO CONTMR LUMBAR SPINE WO CONT EXAM: MR LUMBAR SPINE WO CONT INDICATION: Low back pain, cauda equina syndrome suspected COMPARISON: None TECHNIQUE: Multiplanar multisequence noncontrast MR sequences through the lumbosacral spine. FINDINGS: Vertebral Bodies and intervertebral discs: Surgical changes related to bilateral transpedicular fusion of L4 and L5. Laminectomy changes. No evidence of complication. Susceptibility limits evaluationof the adjacent marrow signal. Remaining vertebral body [...] to mild spinal canal stenosis at L3-L4. Mildmultilevel foraminal stenosis from L3 to S1. Small Central disc protrusion at L4-L5. See above for detailed description of individual levels. Finalized by Nathan Agee on 06/10/2024 6:11 [facility] MR THORACIC SPINE WO CONTon 55-05-9743GG THORACIC SPINE WO CONTMR THORACIC SPINE WO CONT EXAM: MRI THORACIC [...] by Calixto Ovalle MD on 06/10/2024 6:05 PMNormalJ.W. Ruby Memorial Hospital URN MACROSCOPIC NURon 11-93-2465PKNKFXEWA NURNegativeNormalNEGProMedica Pearce HospitalComment on above:Performed By: #### NUM #### [facility] ([id number]) [address] [place], [place] [address]MZIXU/HGB NURNegativeNormalNEGProMedica Renee HospitalComment on above:Performed By: #### NUM #### [facility] ([id number]) [address] [place], [place] [address]KYRYMKY FERNANDO>=1000AbnormalNEGProMedica Renee HospitalComment on above:Performed By: #### NUM #### [facility] ([id number]) [address] [place], [place] [address]HZAKEHR NURNegativeNormalNEGProMedica Pearce HospitalComment on above:Performed By: #### NUM #### [facility] ([id number]) [address] [place], [place] [address]UHXFQAAXS ESTERASE NURNegativeNokindred hospital - greensboroNEGJ.W. Ruby Memorial Hospital Comment on above:Performed By: #### NUM #### [facility] ([id number]) [address] [place], [place] [address]KHJGZMW NURNegativeNormalNEGProFisher-Titus Medical CenterComment on above:Performed By: #### NUM #### [facility] ([id number]) [address] [place], [place] [address]QS NUR6.9Tiblxq9.0-8.5PGerman HospitalComment on above: Performed By: #### NUM #### [facility] ([id number]) [address] [place], [place] [address]NLIWFCV NURNegativeNormalNEGJ.W. Ruby Memorial HospitalComment on above:Performed By: #### NUM #### [facility] ([id number]) [address] [place], [place] [address]ATVNIPUX GRAVITY NUR1.003Udogqs2.003-1.035ProFisher-Titus Medical CenterComment on above:Performed By: #### NUM #### [facility] ([id number]) [address] [place], [place] [address]AWQAWXMJCLLJ NUR0.2 eu/dLNormal<1.1PGerman Hospital Comment on above:Performed By: #### NUM #### [facility] ([id number]) [address] [place], [place] [address]Opyng collection deviceon 09-57-0594CY EXTRA URINESER EXTRA URINE ORDER IN PROCESSNoWalker Baptist Medical Centerca [facility] Va Medical CenterCoding Summaryon 03-25-2024 Coding SummaryHTMLBase 64 NtkwpeycFQm9lYs+PGhlYWQ+DE0ONXBqL24jzVCkdO6fH3GDDRmXTwudTMIDZUzAZkTskxRjZA7ixTXe ZXJu [file] IGN (more content not included)...[facility] OhioConsent Formson 24-39-5386Bmmdrnt [id number]#1.00OTGTIFF [facility] OhioED Note - Physicianon 42-22-4978WO Note - Physician Patient: TOM KHAN Age: [...] so good, then mentioned that he had acardiac event several months ago, and had stents [...] is normal is not tachypneic lungs are cleargood eye contact heart rate and rhythm regular no murmur abdomen is soft he is neurologic exam symmetric he had no complaints, other than he might of felt a little fatigued, but denied chest pain or s hortness of breath nausea vomiting sweats, and he [...] at discharge. Impression and Plan Diagnosis Diabetes (BED66-YQ E11.9, Discharge, Medical) Plan Condition: Stable. Disposition: Left against medical advice. [Electronically Signed on: 03/17/2024 06:00 EDT] Skyler Balbuena DO [Verified on: 03/17/2024 06:00 EDT] Skyler Balbuena [facility] Clinical Summaryon 56-85-2414TH Clinical [facility] - Emergency Department [address] [place] [address] ED Clinical Summary PERSON INFORMATION Name: TOM KHAN Age: 68 Years Sex: MALE : 1955 MRN: Acct#: Visit Reason: Hypoglycemia; LOW BLOOD SUGAR Arrival: 03/15/2024 21:36:27 Discharge: 03/15/2024 23:10:00 LOS: 000 01:34 Check In: 03/15/2024 21:36:27 Checkout:03/15/2024 23:10:00 Address: [place] [address] PCP: Provider, None PROVIDER INFORMATION Provider Role Assigned Unassigned Eli Estrada RN ED Nurse 03/15/2024 22:04:36 Skyler Balbuena DO ED [...] - Patient/family/caregiver verbalizes understanding of instructions given Comment:[facility] OhioED Note-Nursingon 10-02-1282ME Note-Nursing Patient tired of waiting. Wanted to leave AMA. Signed AMA paper and left. Did allow for one last finger stick blood sugar which was 144. o[facility] HospitalED Note-Nursingwife called. She was very abrupt. Advised she [...] abrupt and said she may call back. o[facility] Patient Education Noteon 25-50-7560KS Patient Education NoteEducation MaterialsNoMercy Health St. Vincent Medical Center Patient Summaryon 84-42-9243AR [facility] [address] [place] [address] PATIENT DISCHARGE INSTRUCTIONS Patient Information Name: TOM KHAN Age: 68 Years Date of : 1955 Reason For Visit: Hypoglycemia; LOW BLOOD SUGAR Arrival Time: 03/15/2024 21:36:27 Primary Care Physician: Provider, None Attending Physician: Skyler Balbuena DO Comment: Visit Diagnosis: Diagnoses This Visit Hypoglycemia ([id number]) The Pharmacy at [facility] is open Sunday through Sunday from 9A to 6P and Sunday and Sunday from 9A to 5P Prescription Information: If you have been given a prescription for narcotics, seek immediate medical attention if you have any difficulty breathing or any sudden status changes such as confusion andsleepiness. If you or anyone you know is experiencing suicidal thoughts, mental health, alcohol and/or drug addiction problems; contact the [facility] 26/03 Crisis Hotline -Text 8KFYP ku 777890. If you received any narcotics, sedation, or [...] and treatment you received today in the [facility] Emergency Department were for an urgent problem and are not intended as complete care. It is important for you to follow up with a doctor, nurse practitioner, or physician?s assistant kitchen manager for ongoing care. If your symptoms become worse or you donot improve as expected and you are unable [...] we can reach you if necessary. [facility] has provided you with a complete list of medications post discharge. Please inform your airfield manager/provider of your visit and for further instruction [...] Infection ? Yes Antibiotic (more content not included)...NormalG[facility]beigh Hospital Glucose Levelon 35-31-5945Uopdxms [Mass/Vol]144 mg/wFLprz23-350Qyockzbe35 Morris StreetComment on above:Result Comment: OPR_ID=IN_LIST,TGC FLAG = False,Meter:[id number] Airplane Tube Builder:Marina BenitezPerformed By: #### [id number] #### [facility] (DEFAULT) [address] [place] [address]Erycjne [Mass/Vol]176 mg/lUMzzb17-367Ppszmtks[address] Comment on above:Result Comment: OPR_ID=IN_LIST,TGC FLAG = False,Meter:[id number] Airplane Tube Builder:Jonas AbarcaPerformed By: #### [id number] #### [facility] (DEFAULT) [address] [place] [id number] Abdomen APon 19-50-7249ZTKTXZD: A 68-year-old male with the history of the symptomatic cholelithiasis. Check for the stoolburden. TECHNIQUE: Supine abdomen: One view COMPARISON: No [...] by Arturo Reed MD on 03/15/2024 9:49 AMSECTRARachel, Arturo Shrestha MD - 03/15/2024 HISTORY: A 68-year-old male with the history of the symptomatic cholelithiasis. Check for the stoolburden. TECHNIQUE: Supine abdomen: One view COMPARISON: No [...] Arturo Reed MD on 03/15/2024 9:49 AM [facility] The Political Student [facility] HospitalXR Abdomen APOrdered By: Arturo Reed on 03-15-2024 [facility] Work Phone: XR Abdomen APon 16-86-7397Bqjnhbqrp Study observation (narrative)[facility] HospitalMeasure post void residualon 12-81-3937Ruchbb 99mKindred Hospital South PhiladelphiaPOCT Hemoglobin E6cRrvdyqq By: Jenn Zheng on 75-34-3286EgE3b (Bld) [Mass fraction]7.7 g/dLAbnormal4 - 7 g/dLOhio Valley Surgical HospitalInterpretation and review of laboratory results AbnormalClarion HospitalAmbulatory referral to Diabetic Educationon 26-07-8278TcyBtogfqUniversity Hospitals Conneaut Medical CenterMeasure post void residual on 23-51-4125Zsyfne051BtsIyxzoyClarion HospitalPOCT Urinalysis Auto, W/O Microscopyon 37-60-6475Tzzxdanr Poct Urine BloodNegative [facility] HospitalExternal Poct Urine Glucose3+[facility] External Poct Urine KetonesNegativeOhio Valley Surgical HospitalExternal Poct Urine Leukocyte EsteraseNegativeOhio Valley Surgical HospitalExternal Poct Urine Nitrite NegativeOhio Valley Surgical HospitalExternal Poct Urine Ph6.0[facility] External Poct Urine ProteinNegativeClarion HospitalCBC auto differentialon 62-14-6668Twnxbndjh (Bld) [#/Vol]0.0 10*3/uL [facility] HospitalBasophils/100 WBC (Bld)0.6 %[facility] Eosinophils (Bld) [#/Vol]0.3 10*3/uLOhio Valley Surgical HospitalEosinophils/100 WBC (Bld)3.8 %[facility] HospitalErythrocyte distribution width (RBC) [Ratio] 16.3 %High11.5 - 15.0 %[facility] HospitalHematocrit (Bld) [Volume fraction] 43.0 %39 - 49 %[facility] HospitalHemoglobin (Bld) [Mass/Vol]14.3 g/dL13.0 - 17.0 g/dLOhio Valley Surgical HospitalInterpretation and review of laboratory results AbnormalOhio Valley Surgical HospitalLymphocytes (Bld) [#/Vol]1.6 10*3/uLOhio Valley Surgical HospitalLymphocytes/100 WBC (Bld)24.1 %[facility] HospitalMCH (RBC) [Entitic mass]30.2 pg27 - 34 [facility] Ment[facility] HospitalMCHC (RBC) [Mass/Vol]33.4 g/dL32 - 36 g/dLOhio Valley Surgical HospitalMCV (RBC) [Entitic vol]90 fL80 - 100 fL [facility] HospitalMonocytes (Bld) [#/Vol]0.7 10*3/uLOhio Valley Surgical Hospital Monocytes/100 WBC (Bld)10.3 %[facility] Surgical HospitalNeutrophils (Bld) [#/Vol]4.1 10*3/uLOhio Valley Surgical HospitalNeutrophils/100 WBC (Bld)61.2 %[facility] SystemPlatelet mean volume (Bld) [Entitic vol]7.5 fL7 - 12 [facility] SystemPlatelets (Bld) [#/Vol]290 10*3/uLSalem City Hospital SystemRBC (Bld) [#/Vol] 4.75 10*6/uLSalem City Hospital SystemWBC corrected for nucl RBC Auto (Bld) [#/Vol] 6.7Clarion HospitalComprehensive metabolic panelon 22-23-6947Brgvngw [Mass/Vol]4.5 g/dL3.2 - 5.3 g/dLSalem City Hospital SystemALP [Catalytic activity/Vol]56 U/L39 - 130 U/[facility] Health SystemALT No additional P-5'-P [Catalytic activity/Vol]38 U/L0 - 40 U/[facility] Health SystemAnion gap [Moles/Vol]10 mmol/L5 - 15 mmol/[facility] SystemAST [Catalytic activity/Vol]23 U/L0 - 41 U/[facility] SystemBilirubin [Mass/Vol]0.6 mg/dL0.3 - 1.2 mg/dLSalem City Hospital SystemCalcium [Mass/Vol]9.7 mg/dL8.5 - 10.5 mg/dLOhio Valley Surgical HospitalChloride [Moles/Vol]105 mmol/L98 - 109 mmol/[facility] SystemCO2 [Moles/Vol]26 mmol/L22 - 32 mmol/[facility] SystemCreatinine [Mass/Vol]0.85 mg/dL0.60 - 1.30 mg/dLOhio Valley Surgical HospitalComment on above:METHOD TRACEABLE TO IDPR STANDARDeGFR (CKD-EPI)non-race dependent- [facility] Community HospitalComment on above: Reported eGFR is based on the CKD-EPI 2020 equation that does not use a race coefficient. Glucose [Mass/Vol]129 mg/aUHfht58 - 99 mg/dLSalem City Hospital SystemPotassium [Moles/Vol]4.3 mmol/L3.5 - 5.0 mmol/[facility] SystemProtein [Mass/Vol] 7.8 g/dL6.0 - 8.0 g/dLFormerly Memorial Hospital of Wake Countyodium [Moles/Vol]141 mmol/L134 - 146 mmol/LPrMercy Health St. Joseph Warren HospitalUrea nitrogen [Mass/Vol]25 mg/dL5 - 27 mg/dL [facility] HospitalLipid 1996 panelon 60-56-3644Mhrxdpdineq [Mass/Vol]149 mg/qBYgv845 - 200 mg/dLOhio Valley Surgical HospitalCholesterol in HDL [Mass/Vol]45 mg/dL39 - PINF mg/dLOhio Valley Surgical HospitalComment on above: HDL <40 mg/dL - High Risk HDL > or = 40mg/dL- Desirable HDL >60 mg/dL - Negative Risk Cholesterol in LDL [Mass/Vol]66 mg/dLNINF - 130 mg/dLOhio [facility] Surgical Hospital Comment on above: LDL <100 mg/dL - Desirable LDL >160 mg/dL - High Risk Cholesterol in VLDL [Mass/Vol]38 mg/dLHigh0 - 30 mg/dLOhio Valley Surgical Hospital Cholesterol.total/Cholesterol in HDL [Mass ratio]3.3 {ratio}1.0 - 5.0[facility] HospitalTriglyceride [Mass/Vol]192 mg/uUJjdz67 - 150 mg/dLOhio Valley Surgical HospitalNatriuretic peptide B [Mass/Vol]on 94-42-4757Rqbvuvpietv peptide B (Bld) [Mass/Vol]37 pg/mLNINF - 100.0 pg/mLClarion HospitalNo Panel Informationon 40-46-5291Nzswwitffsgyrt and review of laboratory resultsAbnormalProWernersville State HospitalProstate specific Ag [Mass/Vol]on 92-69-9341NhlRnjnioUniversity Hospitals Conneaut Medical CenterProstatic specific antigen screenon 30-24-4340Jrywuifr specific Ag [Mass/Vol]0.98 ng/mL0.00 - 4.00 ng/mL [facility] [employer] [facility]inai HospitalComment on above: The method used for this test is Roseline [place] DXI chemiluminescent immunoassay. Values obtained by different assay methods cannot be used interchangeably. TSH with Reflexon 68-99-6434QFO Qn1.35 m[IU]/LProMedMercer County Community HospitalProMercy Health Clermont Hospital SystemUS Abdomen limitedon 19-09-9583Wzrpeagk history: Right upper quadrant pain Findings: Multiplanar sonography was performed of the right upper quadrant. Comparison: None. Layering stones in dependent portion gallbladder. No abnormal wall thickness, pericholecystic fluidnor biliary tree dilatation. No free fluid hepatorenal fossa no right renal obstruction. Liver echotexture is increased. No perihepatic fluid. Portal vein patent. Impression: * Cholelithiasis. If there is concern regarding acute biliary tract obstruction, consider HIDA scanor MRCP.. * Hepatic steatosis. Finalized by Miguel A Ware MD on 11/16/2023 4:14 PMSMiguel A De Anda MD - 11/16/2023 Clinical history: Right upper quadrant pain Findings: Multiplanar sonography was performed of the right upper quadrant. Comparison: None. Layering stones in dependent portion gallbladder. No abnormal wall thickness, pericholecystic fluidnor biliary tree dilatation. No free fluid hepatorenal fossa no right renal obstruction. Liver echotexture is increased. No perihepatic fluid. Portal vein patent. Impression: * Cholelithiasis. If there is concern regarding acute biliary tract obstruction, consider HIDA scanor MRCP.. * Hepatic steatosis. Finalized by Miguel A Ware MD on 11/16/2023 4:14 PM [facility] HospitalCleanEdison [facility] HospitalRadiology Study observation (narrative)[facility] HospitalCleanEdison System Abdomen limitedOrdered By: Miguel A Ware on 53-92-4373IrrGudsip [facility] Work Phone: us.doppler Lower extremity vein - bilateralon 45-46-4395Rzvqx: Limited visualization of veins in the calf due to edema. Non- visualized, absent or surgically harvested Great saphenous superficial vein in the thigh. Remaining visualized deep venous segmentsare compressible with spontaneous phasic spectral Doppler waveforms. Superficial veins are compressible. Left: Limited visualization of veins in the calf due to edema. Non-visualized, absent or surgicallyharvested Great saphenous superficial vein in the thigh. Remaining visualized deep venous segments are compressible with spontaneous phasic spectral Doppler waveforms. Superficial veins are compressible. Conclusions: BILATERAL: NO EVIDENCE of deep or superficial vein thrombosis of the lower extremities. The great saphenous vein is not visualized or surgically absent. CARDIOVASCULARDevika Teixeira MD - 11/16/2023 Right: Limited visualization of veins in the calf due to edema. Non-visualized, absent or surgically harvested Great saphenous superficial vein in the thigh. Remaining visualized deep venous segmentsare compressible with spontaneous phasic spectral Doppler waveforms. Superficial veins are compressible. Left: Limited visualization of veins in the calf due to edema. Non-visualized, absent or surgicallyharvested Great saphenous superficial vein in the thigh. Remaining visualized deep venous segments are compressible with spontaneous phasic spectral Doppler waveforms. Superficial veins are compressible. Conclusions: BILATERAL: NO EVIDENCE of deep or superficial vein thrombosis of the lower extremities. The great saphenous vein is not visualized or surgically absent. [facility] [employer] [facility] HospitalRadiology Study observation (narrative)[facility] [employer] [facility] HospitalUS.doppler Lower extremity vein - bilateralOrdered By: Devika Wilks on 85-30-0748YftArfaseUniversity Hospitals Conneaut Medical Center Work Phone: XR Chest PA and Lateralon [phone] CHEST 2 VWS 11/16/2023 8:38 AM HISTORY: [...] by Reilly Hassan MD on 11/16/2023 10:44 Reilly Joshua MD - 11/16/2023 XR CHEST 2 VWS 11/16/2023 [...] Reilly Hassan MD on 11/16/2023 10:44 AM [facility] HospitalYellow ChipRadiology Study observation (narrative)[facility] HospitalYellow ChipXR Chest PA and LateralOrdered By: Reilly Hassan on 24-18-0879[facility]tnFwalzk [facility] Work Phone: Glucose Glucometer (BldC) [Mass/Vol]on 09-19-2023 Glucose [Mass/Vol]255 mg/xZRnct12 - 99 mg/dLMcCullough-Hyde Memorial HospitalObserve Medical [facility] Interpretation and review of laboratory resultsAbnormalAurora Medical Center Manitowoc County The Political Student [facility]inai HospitalBacteria identifiedon [id number] identified Cx Nom (U)Test: Urine Culture Specimen Type: Urine Specimen Date: 07/21/2023 11:49 AM Result Date: 07/23/2023 2:29 PM Result Status: Final result Abnormal: No Resulting Lab: [facility] [address] [address] CULTURE No growthNormalUniversAshtabula County Medical CenterComment on above: Performed By: #### 630-4 #### CHRIS Virk ([id number]) [facility] ([facility]) [address] [place], [place] [address]Office Visit (Cardiology)on 86-81-9707Qmaleg-up visit Diagnoses/Problems Assessed CAD, multiple vessel (414.00) [...] Aminotransferase, Serum; Status:Active - Retrospective Authorization; Requested for:[id number]; AST; Status:Active - Retrospective Authorization; Requested for:64Sml8127; Lipid Panel; Status:Active - Retrospective Authorization; Requested for:37Gqa7782; CAD, multiple vessel, Hypertension IO EKG Electrocardiogram- 12 Lead; Status:Complete; Done: 50Agp2314 Class 1 obesity with body mass index (BMI) of 34.0 to 34.9 in adult Healthy Weight Tips; Status:Complete - Retrospective Authorization; Done: 71Fsg0369 Some eating tips that can help you lose weight.; Status:Complete - Retrospective Authorization; Done: 32Anp4150 SocHx: Never a smoker Tobacco Use Screening; Status:Complete; Done: 99Ykd2632 Patient Instructions Please bring all medicines, vitamins, [...] twice daily Patient brou (more content not included)...NormalUH TouchworksTobacco Screening. on 98-08-1915Rsvj risk assessmentb) One or more falls in the last yearMP-[facility] DO Work Phone: Tobacco use status CPHSb) NoMP-[facility] 250 DO Work Phone: XR CHEST AP/PA AND LATon 96-36-0833DH CHEST AP/PA AND LATEXAMINATION: XR CHEST AP/PA AND LAT 01/04/2023 7:51 [...] HUDSON on SunJanuary 04, 2023 8:22:49 PM EDTNoOhioHealth Doctors Hospital Urgent CareComment on above:Order Comment: Injury/Trauma or Illness?:Illness/Other How long have you had these symptoms (acute/chronic)?:Acute Reason for exam?:cough History of cancer?:unk Surgeries, chemotherapy, or radiation?:unk Type of Exam?:Initial Additional signs and symptoms?:SOB, open heart 09XR Chest AP/PA and LATon 01-04-2023 Nonacute portable chest. Workstation ID: [id number] RISEXAMINATION: XR CHEST AP/PA AND LAT 01/04/2023 7:51 [...] are intact. Sternal wires indicate prior surgery. Niko Berry, DO - 01/04/2023 EXAMINATION: XR CHEST AP/PA [...] IMPRESSION: Nonacute portable chest. Workstation ID: [id number] [facility] HospitalRadiology Study observation (narrative)OhioProtestant HospitalXR Chest AP/PA and LATOrdered By: Niko Hudson on 71-98-3901NtuyCmrgqp Work Phone: VIT B12 AND FOLATEon 06-24-5437Gsgryvmpn (Vitamin B12) [Mass/Vol]483.0 pg/rQSkpbze991.0-986.0The [facility]carawas HospitalComment on above: Performed By: #### B12FOL #### [facility] [address] [address] [address] Cary MalagonFOLATE21.00 ng/mLNormal8.60-58.90The [facility]awas HospitalComhenry ford hospital on above:Performed By: #### B12FOL #### [facility] [address] [address] [address] Cary MalagonCOMPREHENSIVE METABOLIC PANELon 37-57-5043Ksdajjd [Mass/Vol]4.4 g/dLNormal3.6-5.1Quest DiagnosticsComment on above:Performed By: #### 496, 64483, 7600 #### [facility] of [address] [place] [address] [employer]ist: Ck Wallis MDAlbumin/Globulin [Mass ratio]1.7 {ratio}Normal 1.0-2.5Quest DiagnosticsComment on above:Performed By: #### 496, 85711, 7600 #### [facility] of [place] [address] [employer]ist: Ck Wallis MDALP [Catalytic activity/Vol]45 U/KMwcvzx08-784 Quest DiagnosticsComment on above:Performed By: #### 496, 96826, 7600 #### [facility] of [place] [address] [employer]ist: Ck Wallis MDALT [Catalytic activity/Vol]29 U/LNormal9-46 Quest DiagnosticsComment on above:Performed By: #### 496, 80675, 7600 #### [facility] [place] [address] [employer]ist: Ck Wallis MDAST [Catalytic activity/Vol]18 U/AEwgult27-14 Quest DiagnosticsComment on above:Performed By: #### 496, 47947, 7600 #### [facility] [place] [address] [employer] Specialist: Ck Wallis MDBilirubin [Mass/Vol]0.3 mg/dLNormal0.2-1.2 Quest DiagnosticsComment on above:Performed By: #### 496, 31532, 7600 #### [facility] of [place] [address] [employer]ist: Ck Wallis MDBUN/CREATININE RATIONOT APPLICABLENormal6-22 Quest DiagnosticsComment on above:Performed By: #### 496, 14826, 7600 #### [facility] of [address], [address] [place] [address] [employer]ist: Ck Wallis MDCalcium [Mass/Vol]9.5 mg/dLNormal8.6-10.3Quest DiagnosticsComment on above:Performed By: #### 496, 19648, 7600 #### [facility] of [address], [address] [place] [address] [employer]ist: Ck Wallis MDChloride [Moles/Vol]101 mmol/WFbalot81-555 Quest DiagnosticsComment on above:Performed By: #### 496, 05180, 7600 #### [facility] [place] [address] [employer]ist: Ck Wallis MDCO2 [Moles/Vol]23 mmol/ISalgvh07-24Zncnf DiagnosticsComment on above:Performed By: #### 496, 78375, 7600 #### [facility] of [address], [address] [place] [address] [employer]ist: Ck Wallis MDCreatinine [Mass/Vol]0.99 mg/dLNormal0.70-1.35 Quest DiagnosticsComment on above:Performed By: #### 496, 47454, 7600 #### [facility] of [place] [address] [employer]ist: Ck Wallis MDGFR/1.73 sq M.predicted among non-blacks MDRD (S/P/Bld) [Vol rate/Area]85 mL/min/{1.73_m2}Normal> OR = 60[facility] Comment on above:Result Comment: The eGFR is based on the CKD-EPI 2020 equation. To calculate the new eGFR from a previous Creatinine or Cystatin C result, go to https://www.kidney.org/professionals/ kdoqi/gfr%5FcalculatorPerformed By: #### 496, 88762, 7600 #### [place] [address] [employer]ist: Ck Wallis MDGlobulin (S) [Mass/Vol]2.6 g/dLNormal1.9-3.7 Quest DiagnosticsComment on above:Performed By: #### 496, 51771, 7600 #### [facility] [place] [address] [employer]ist: Ck Wallis MDGlucose [Mass/Vol]128 mg/wNDfuv31-25Adlqn DiagnosticsComment on above:Result Comment: Fasting reference interval For someone without known diabetes, a glucose value >125 mg/dL indicates that they may have diabetes and this should be confirmed with a follow-up test.Performed By: #### 496, 11938, 7600 #### [facility] [place] [address] [employer]ist: Ck Wallis MDPotassium [Moles/Vol]4.0 mmol/LNormal3.5-5.3 Quest DiagnosticsComment on above:Performed By: #### 496, 68073, 7600 #### [facility] [place] [address] [employer]ist: Ck Wallis MDProtein [Mass/Vol]7.0 g/dLNormal6.1-8.1Quest DiagnosticsComment on above:Performed By: #### 496, 03625, 7600 #### [facility] [place] [address] [employer]ist: Ck Wallis MDSodium [Moles/Vol]136 mmol/RPdedha008-021Hujpv DiagnosticsComment on above:Performed By: #### 496, 35365, 7600 #### [facility] [place] [address] [employer]ist: Ck Wallis MDUrea nitrogen [Mass/Vol]23 mg/dLNormal7-25 Quest DiagnosticsComment on above:Performed By: #### 496, 28631, 7600 #### [facility] [place] [address] [employer]ist: Ck Wallis MDHEMOGLOBIN A1con 28-44-4483MSOZDIUEKW A1c7.3 % of total HgbHigh<5.7Quest DiagnosticsComment on above:Result Comment: For someone without known diabetes, a [...] hemoglobin A1c for diagnosis of diabetes for children.Performed By: #### 496, 94960, 7600 #### [facility] [place] [address] [employer]ist: Ck Wallis MDLIPID PANEL, STANDARDon 35-39-0508Jlhmisgwlgz [Mass/Vol]247 mg/dLHigh<200Quest DiagnosticsComment on above:Order Comment: FASTING:YES FASTING: YESPerformed By: #### 496, 52974, 7600 #### [facility] [place] [address] [employer]ist: Ck Wallis MDCholesterol in HDL [Mass/Vol]39 mg/dLLow> OR = 40Quest DiagnosticsComment on above:Order Comment: FASTING:YES FASTING: YESPerformed By: #### 496, 92123, 7600 #### [facility] [place] [address] [employer]ist: Ck Wallis MDCholesterosully.total/Cholesterol in HDL [Mass ratio]6.3 {ratio}High<5.0Quest DiagnosticsComment on above:Order Comment: FASTING:YES FASTING: YESPerformed By: #### 496, 09587, 7600 #### [facility] [address], [address] [place] [address] [employer]ist: Ck Wallis MDLDL-CHOLESTEROLNormalQuest DiagnosticsComment on above:Order Comment: FASTING:YES FASTING: YESResult Comment: LDL cholesterol not calculated. Triglyceride levels [...] LDL-C. Nathan ARENAS et al. KETTY. 2013;310(19): 6391-4458 (http://education.Netseer.Keystone Kitchens/faq/BAD985)Performed By: #### 496, 46516, 3270 #### [address], [address] [place], [place] [address] [employer]ist: Ck MILLER HDL KQRJNEVHQSJ289 mg/dL (calc)High<130 Quest DiagnosticsComment on above:Order Comment: FASTING:YES FASTING: YESResult Comment: For patients with diabetes plus 1 major ASCVD risk factor, treating to a non-HDL-C goal of <100 mg/dL (LDL-C of <70 mg/dL) is considered a therapeutic option.Performed By: #### 496, 39125, 1180 #### [address], [address] [place], [place] [address] [employer]ist: Ck Wallis MDTriglyceride [Mass/Vol]590 mg/dLHigh<150Quest DiagnosticsComment on above:Order Comment: FASTING:YES FASTING: YESResult Comment: If a non-fasting specimen was collected, consider repeat triglyceride testing on a fasting specimen if clinically indicated. Perera et al. J. of Clin. Lipidol. 2015;9:129-169. There is increased risk of pancreatitis when the triglyceride concentration is very high (> or = 500 mg/dL, especially if > or = 1000 mg/dL). Trever et al. J. of Clin. Lipidol. 2015;9:129-169.Performed By: #### 496, 86203, 0150 #### [facility] [address], [address] [place] [address] [employer]ist: Ck Wallis MDUS HARVEY DOP LEG RTon 03-05-2169EF HARVEY DOP LEG RTUltrasound venous duplex scan right lower extremity CLINICAL: Swelling and [...] Electronically authenticated by: SAMI BRUNSON Date: 2021-12-19 09:12NoSub[facility] AUTO DIFFon 23-37-3723LFNN #0.0 103/ulNormal0.0-0.1Doctors HospitalComment on above:Performed By: #### CBC #### [facility] [address] [place] [address] Dr. Cary MalagonBasophils/100 WBC (Bld)0.3 %Normal0.2-2.0[facility] Comment on above:Performed By: #### CBC #### [facility] [address] [address] [address] Cary Tucker #0.1 103/ulNormal0.0-0.7The [facility]awas HospitalComment on above: Performed By: #### CBC #### [facility] [address] [address] [address] Cary Cravenosinophils/100 WBC (Bld)1.4 %Normal0.9-7.0[facility] Comment on above:Performed By: #### CBC #### [facility] [address] [address] [address] Cary Cravenrythrocyte distribution width (RBC) [Ratio]14.7 %Pkdquw93.0-15.0 [facility] Medical Centerment on above:Performed By: #### CBC #### [facility] [address] [place] [address] Dr. Cary MalagonHematocrit (Bld) [Volume fraction]37.7 %Critically low42.0-54.0 The [facility]awas HospitalComment on above:Performed By: #### CBC #### [facility] [address] [place] [address] Dr. Cary MalagonHemoglobin (Bld) [Mass/Vol]12.8 g/dLCritically low14.0-18.0[facility] on above:Performed By: #### CBC #### [facility] [address] [place] [address] Dr. Cary Nunez #0.04 10e3/ulCritically high0.00-0.03[facility] Comment on above:Performed By: #### CBC #### [facility] [address] [place] [address] Dr. Cary Nunez %0.4 %Normal0.0-0.5The [facility] on above: Performed By: #### CBC #### [facility] [address] [place] [address] Dr. Cary CamargoH #1.4 103/ulNormal1.2-3.8The [facility]tering Health Hamiltonment on above:Performed By: #### CBC #### [facility] [address] [place] [address] Dr. Cary Tranmphocytes/100 WBC (Bld)14.8 %Critically low20.5-60.0[facility] on above:Performed By: #### CBC #### [facility] [address] [place] [address] Dr. Cary GarridoUAL DIFF REQNONormalThe [facility]carawas HospitalComment on above: Performed By: #### CBC #### [facility] [address] [address] [address] Cary Wall (RBC) [Entitic mass]30.2 whBciqcz13.9-34.0The [facility]awas HospitalComment on above:Performed By: #### CBC #### [facility] [address] [place] [address] Dr. Cary Wall (RBC) [Mass/Vol]34.0 g/gPPhuxnl35.9-35.2The [facility]as HospitalComment on above:Performed By: #### CBC #### [facility] [address] [place] [address] Dr. Cary WallV (RBC) [Entitic vol]88.9 mCYqaiqk62.0-94.0The [facility]awas HospitalComment on above:Performed By: #### CBC #### [facility] [address] [place] [address] Dr. Cary Guevara #1.0 103/ulCritically high0.3-0.8The [facility] Comment on above:Performed By: #### CBC #### [facility] [address] [place] [address] Dr. Cary Gayocytes/100 WBC (Bld)10.8 %Normal1.7-12.0[facility] Comment on above:Performed By: #### CBC #### [facility] [address] [place] [address] Dr. Cary Mattson #6.7 103/ulCritically high1.4-6.5The [facility] Comment on above:Performed By: #### CBC #### [facility] [address] [place] [address] Dr. Cary Garlandutrophils/100 WBC (Bld)72.3 %Xiwkbr52.0-75.0The [facility]awas HospitalComment on above:Performed By: #### CBC #### [facility] [address] [place] [address] Dr. Cary Cortezlet mean volume (Bld) [Entitic vol]9.0 fLCritically low 9.5-13.5The [facility]amberto HospitalComment on above:Performed By: #### CBC #### [facility] [address] [place] [address] Dr. Cary MalagonPLT242 103/hgNpzzvv933-472Cgu [facility] on above: Performed By: #### CBC #### [facility] [address] [place] [address] Dr. Cary MalagonRBC4.24 106/ulCritically low4.70-6.10The [facility] on above:Performed By: #### CBC #### [facility] [address] [place] [address] Dr. Cary MalagonWBC9.3 103/ulNormal4.0-11.0The [facility] on above: Performed By: #### CBC #### [facility] [address] [place] [address] Dr. Cary Trujillo BLOODon 82-06-4250Kkoxrbjocon examination of blood, cultureCulture Observations: NO GROWTH AT 5 DAYS. Isolate 1 BC_BA_NANormalThe [facility]carawas HospitalComhenry ford hospital on above:Performed By: #### CBC #### [facility] [address] [place] [address] Dr. Cary LudwigDIMERon 94-42-9629D-DIMER3.78 mg/L FEUCritically high0.19-0.[address] [facility] on above:Performed By: #### CMP #### [facility] [address] [place] [address] Dr. Cary LudwigDIMER COMMENTSSEE [facility] on above:Result Comment: Increases in D-Dimer concentration observed with thromboembolic events [...] stress, and generalized hospitalization. Performed By: #### CMP #### [facility] [address] [place] [address] Dr. Cary RabagoF 14(COMP METB)on 31-29-3339Ncuolll [Mass/Vol]3.4 g/dLNormal 3.4-5.0The [facility]awas HospitalComment on above:Performed By: #### CMP #### [facility] [address] [place] [address] Dr. Cary MalagonAlbumin/Globulin [Mass ratio]0.9 {ratio}NormalThe [facility]carawas HospitalComment on above:Performed By: #### CMP #### [facility] [address] [place] [address] Dr. Cary StarkP [Catalytic activity/Vol]63 U/VRtrnxy71-869Qbd [facility] HospitalComment on above:Performed By: #### CMP #### [facility] [address] [place] [address] Dr. Cary StarkT [Catalytic activity/Vol]40 U/UVhhjqw00-20Uoe [facility] HospitalComment on above:Performed By: #### CMP #### [facility] [address] [place] [address] Dr. Cary Villanueva gap [Moles/Vol]17.2 mmol/LNormalThe [facility] Comment on above:Performed By: #### CMP #### [facility] [address] [place] [address] Dr. Cary MalagonAST [Catalytic activity/Vol]19 U/OZtweww67-27Bkj [facility] HospitalComment on above:Performed By: #### CMP #### [facility] [address] [place] [address] Dr. Cary MalagonBilirubin [Mass/Vol]0.4 mg/dLNormal0.2-1.3The [facility] Comment on above:Performed By: #### CMP #### [facility] [address] [place] [address] Dr. Cary MalagonCalcium [Mass/Vol]8.7 mg/dLNormal8.5-10.1The [facility] Comment on above:Performed By: #### CMP #### [facility] [address] [address] [address] Cary MalagonChloride [Moles/Vol]99 mmol/RErabak98-430Mxz [facility] Comment on above:Performed By: #### CMP #### [facility] [address] [address] [address] aCry MalagonCO2 [Moles/Vol]22.0 mmol/FEdwhrz16.0-30.0The [facility] Comment on above:Performed By: #### CMP #### [facility] [address] [address] [address] Cary MalagonCreatinine [Mass/Vol]1.26 mg/dLCritically high0.66-1.25The [facility]awas HospitalComment on above:Performed By: #### CMP #### [facility] [address] [address] [address] Townsend ChangEGFR-AF HUNGARIAN>60Normal>=60The [facility]carawas HospitalComment on above:Performed By: #### CMP #### [facility] [address] [address] [address] Cary CravenGFR-NON AF GBSZFIEA97 mL/min/1.20h1Qwsenayioj low>=60The [facility]awas HospitalComment on above:Performed By: #### CMP #### [facility] [address] [address] [address] Cary MalagonGlobulin (S) [Mass/Vol]3.9 g/dLNormalThe [facility]awas HospitalComment on above:Performed By: #### CMP #### [facility] [address] [address] [address] Cary MalagonGlucose [Mass/Vol]272 mg/dLCritically odks80-699Ehe [facility]caraw[facility] HospitalComment on above:Performed By: #### CMP #### [facility] [address] [address] [address] Cary MalagonPotassium [Moles/Vol]3.2 mmol/LCritically low3.4-5.0The [facility]carawas HospitalComment on above:Performed By: #### CMP #### [facility] [address] [address] [address] Cary MalagonProtein [Mass/Vol]7.3 g/dLNormal6.1-8.2[facility] Comment on above:Performed By: #### CMP #### [facility] [address] [address] [address] Cary MalagonSodium [Moles/Vol]135 mmol/LCritically bdl554-406Jqg [facility]awas HospitalComment on above:Performed By: #### CMP #### [facility] [address] [address] [address] Cary MalagonUrea nitrogen [Mass/Vol]25.0 mg/dLCritically high7.0-18.0The [facility]carawas HospitalComment on above:Performed By: #### CMP #### [facility] [address] [address] [address] Cary MalagonUrea nitrogen/Creatinine [Mass ratio]19.8 mg/mgNormalThe Tuscarawas HospitalComment on above:Performed By: #### CMP #### [facility] [address] [address] [address] Cary MalagonALBUMIN, RANDOM URINE W/CREATININEon 14-82-2425WMDUVVG, URINE1.2 mg/dLNormalSee Note:Quest DiagnosticsComment on above:Result Comment: Reference Range: Reference Range Not establishedPerformed By: #### 496, 44200, 9678, 6800 #### [address] [address] [employer]: Ck Wallis MDALBUMIN/CREATININE RATIO, RANDOM URINE11 mcg/mg creatNormal<30Quest DiagnosticsComment on above:Result Comment: The ADA defines abnormalities in albumin excretion as follows: Albuminuria Category Result (mcg/mg creatinine) Normal to Mildly increased <30 Moderately increased 30-299 Severely increased > OR = 300 The ADA recommends that at least two of three specimens collected within a 3-6 month period be abnormal before considering a patient to be within a diagnostic category.Performed By: #### 496, 70363, 6517, 7600 #### [facility] [address], [address] [place] [address] [employer]: Ck Wallis MDCreatinine (U) [Mass/Vol]112 mg/oHKuwmbf58-601 [facility] DiagnosticsComment on above:Performed By: #### 496, 58403, 6517, 7600 #### [facility] of [address], [address] [place] [address] [employer]ist: Ck MCKINLEYOMPREHENSIVE METABOLIC PANELon 12-12-2021 Albumin [Mass/Vol]4.6 g/dLNormal3.6-5.1Quest DiagnosticsComment on above: Performed By: #### 496, 80190, 6517, 7600 #### [facility] of [address], [address] [place] [address] [employer]ist: Ck Wallis MDAlbumin/Globulin [Mass ratio]1.7 {ratio}Normal 1.0-2.5Quest DiagnosticsComment on above:Performed By: #### 496, 81144, 6517, 7600 #### [facility] of [address], [address] [place] [address] [employer]ist: Ck Wallis MDALP [Catalytic activity/Vol]43 U/WOdlyha03-080 Quest DiagnosticsComment on above:Performed By: #### 496, 36821, 6517, 7600 #### [facility] of [address], [address] [place] [address] [employer]ist: Ck Wallis MDALT [Catalytic activity/Vol]22 U/LNormal9-46 Quest DiagnosticsComment on above:Performed By: #### 496, 74633, 6517, 7600 #### [facility] of [address], [address] [place] [address] [employer]ist: kC Wallis MDAST [Catalytic activity/Vol]15 U/IYxrjof88-25 Quest DiagnosticsComment on above:Performed By: #### 496, 40398, 6517, 7600 #### [facility] of [address], [address] [place] [address] [employer]ist: Ck Wallis MDBilirubin [Mass/Vol]0.5 mg/dLNormal0.2-1.2 [facility] DiagnosticsComment on above:Performed By: #### 496, 02244, 6517, 7600 #### [facility] of [address], [address] [place] [address] [employer]ist: Ck Wallis MDBUN/CREATININE RATIONOT APPLICABLENormal6-22 [facility] DiagnosticsComment on above:Performed By: #### 496, 20240, 6517, 7600 #### [facility] of [address], [address] [place] [address] [employer]ist: Ck Wallis MDCalcium [Mass/Vol]9.3 mg/dLNormal8.6-10.3Quest DiagnosticsComment on above:Performed By: #### 496, 11071, 6517, 7600 #### [facility] of [address], [address] [place] [address] [employer]ist: Ck Wallis MDChloride [Moles/Vol]102 mmol/IKkfkpi35-583 Quest DiagnosticsComment on above:Performed By: #### 496, 68752, 6517, 7600 #### [facility] of [address], [address] [place] [address] [employer]ist: Ck Wallis MDCO2 [Moles/Vol]27 mmol/LAkfasc65-42Fdxse DiagnosticsComment on above:Performed By: #### 496, 92171, 6517, 7600 #### [facility] of [address], [address] [place] [address] [employer]ist: Ck MCKINLEYreatinine [Mass/Vol]1.05 mg/dLNormal0.70-1.25 Quest DiagnosticsComment on above:Result Comment: For patients >49 years of age, the reference limit for Creatinine is approximately 13% higher for people identified as -Guyanese.Performed By: #### 496, 19423, 6517, 7600 #### [facility] [address] [address] [employer]ist: Ck DobbsFR NON-AFR. EUHZGPMD14 mL/min/1.57m3Ucgxed> OR = 60Quest DiagnosticsComment on above:Performed By: #### 496, 22107, 6517, 7600 #### [facility] [address] [address] [employer]ist: Ck Wallis MDGFR/1.73 sq M.predicted among blacks MDRD (S/P/Bld) [Vol rate/Area]87 mL/min/{1.73_m2}Normal> OR = 60[facility] Comment on above:Performed By: #### 496, 33306, 6517, 7600 #### [facility] [address] [address] [employer]ist: Ck Wallis MDGlobulin (S) [Mass/Vol]2.7 g/dLNormal1.9-3.7 Quest DiagnosticsComment on above:Performed By: #### 496, 45062, 6517, 7600 #### [facility] [address] [address] [employer]ist: Ck Wallis MDGlucose [Mass/Vol]144 mg/wFQwxc19-43Ojzcd DiagnosticsComment on above:Result Comment: Fasting reference interval For someone without known diabetes, a glucose value >125 mg/dL indicates that they may have diabetes and this should be confirmed with a follow-up test.Performed By: #### 496, 05541, 6517, 7600 #### [facility] [address] [address] [employer]ist: Ck Wallis MDPotassium [Moles/Vol]3.9 mmol/LNormal3.5-5.3 Quest DiagnosticsComment on above:Performed By: #### 496, 81141, 6517, 7600 #### [facility] of [address], [address] [place] [address] [employer]ist: Ck Wallis MDProtein [Mass/Vol]7.3 g/dLNormal6.1-8.1Quest DiagnosticsComment on above:Performed By: #### 496, 79673, 6517, 7600 #### [facility] [address], [address] [place] [address] [employer]ist: Ck Wallis MDSodium [Moles/Vol]138 mmol/EUmlsek630-384Bpgbm DiagnosticsComment on above:Performed By: #### 496, 19593, 6517, 7600 #### [facility] [address], [address] [place] [address] [employer]ist: Ck Wallis MDUrea nitrogen [Mass/Vol]19 mg/dLNormal7-25 Quest DiagnosticsComment on above:Performed By: #### 496, 60409, 6517, 7600 #### [facility] [address], [address] [place] [address] [employer]ist: Ck Wallis MDHEMOGLOBIN A1con 92-71-2958OAKSWNVZQE A1c7.4 % of total HgbHigh<5.7Quest DiagnosticsComment on above:Result Comment: For someone without known diabetes, a [...] hemoglobin A1c for diagnosis of diabetes for children.Performed By: #### 496, 19913, 6517, 7600 #### [facility] [address] [address] [employer]ist: Ck Wallis MDLIPID PANEL, STANDARDon 24-47-6217Gbxifqdfvaa [Mass/Vol]263 mg/dLHigh<200Quest DiagnosticsComment on above:Order Comment: FASTING:YES FASTING: YESPerformed By: #### 496, 23454, 6517, 7600 #### [facility] [address], [address] [place] [address] [employer]ist: Ck MCKINLEYholesterol in HDL [Mass/Vol]46 mg/dLNormal> OR = 40Quest DiagnosticsComment on above:Order Comment: FASTING:YES FASTING: YESPerformed By: #### 496, 86987, 6517, 7600 #### [facility] [address], [address] [place] [address] [employer]ist: Ck MCKINLEYholesterol in LDL [Mass/Vol]185 mg/dLHigh Quest DiagnosticsComment on above:Order Comment: FASTING:YES FASTING: YESResult Comment: Reference range: <100 Desirable range <100 mg/dL for primary prevention; <70 mg/dL for patients with CHD or diabetic patients with > or = 2 CHD risk factors. LDL-C is now calculated using the Kimo calculation, which is a validated novel method providing better accuracy than the Friedewald equation in the estimation of LDL-C. Nathan SS et al. KETTY. 2013;310(19): 1698-4878 (http://education.Netseer.Key[employer] Kitchens/faq/EUF682)Performed By: #### 496, 57607, 6517, 7600 #### [facility] [address], [address] [place] [address] [employer]ist: Ck Luevano.total/Cholesterol in HDL [Mass ratio]5.7 {ratio}High<5.0Quest DiagnosticsComment on above:Order Comment: FASTING:YES FASTING: YESPerformed By: #### 496, 84719, 6517, 7600 #### [facility] [address], [address] [place] [address] [employer]ist: Ck MILLER HDL HHHWUAPGAXP019 mg/dL (calc)High<130 Quest DiagnosticsComment on above:Order Comment: FASTING:YES FASTING: YESResult Comment: For patients with diabetes plus 1 major ASCVD risk factor, treating to a non-HDL-C goal of <100 mg/dL (LDL-C of <70 mg/dL) is considered a therapeutic option.Performed By: #### 496, 94800, 6517, 7600 #### [facility] [address], [address] [place] [address] [employer]ist: Ck Wallis MDTriglyceride [Mass/Vol]168 mg/dLHigh<150Quest DiagnosticsComment on above:Order Comment: FASTING:YES FASTING: YESPerformed By: #### 496, 51678, 6517, 7600 #### [facility] [address], [address] [employer]ist: Ck Wallis MDA.OFFVISon 11-23-2021.[facility] [address] [place] [address] Office Visit Report Signed Patient Name: Tom Khan 0 Date of : 1955 Age/Sex: 66 / M Date of Service: Location: [facility] Attending physician: Apolinar CHEN History of Present Illness Date of exam: 11/23/21 Chief Complaint: repeat Current symptoms/precipitating events: Tmo Khan is a 66 year old male [...] Sunday where he told one of the restoration members to pray for him that he wanted to do himself and. The restoration member was alarmed and went to the disability aide who is meeting with the board and inform them of what was going on. Patient was assessed at ED and renewed mind. They also talked with Richie at [facility] at [facility]. He does not feel like he is [...] Signed By: 11/23/211548 Cosigned By (if applicable): [id number] cc: ARTHUR [facility] Memorial HospitalAcetaminophenon 01-96-3871Trpbnjgdyrurv [Mass/Vol]ug/mLNormal0.0-30.0[facility] Comment on above:Performed By: #### CBC, ALCBLD, CMP, TSHRFLX, UDS, ALYSSA, ACET #### [address] [address]Tvxpwvtaqzcyk level (mass/volume)on 86-00-8311Owyxehjgyfdiv (Unsp spec) [Mass/Vol]< 10.0 mcg/mL0.0-30.0[facility] Work Phone: albumin measurement (mass/volume)on 47-05-5500Pipckjb (Unsp spec) [Mass/Vol]4.8 g/dL3.5-5.0[facility] Work Phone: alcohol Bloodon 61-69-4559Qetsouf Blood< 10.00Normal 0.0-10.00[facility] AcuteComment on above:Performed By: #### CBC, ALCBLD, CMP, TSHRFLX, UDS, ALYSSA, ACET #### [address] [address]Amphetamine Screen Ql (U)on 79-82-4339Ffncluhzuqjg Ql (U) NegativeNegCleveland Clinic Fairview [facility] Work Phone: bacteria detection in urine sediment by light microscopyon 94-55-9023Sjxytctn LM Ql (Urine sed)TraceSelect Medical Specialty Hospital [facility] Work Phone: basophil percentageon 34-15-1146Woyfiihrha (Bld) [Mass/Vol]14.5 g/dL13.8-17.8HOhio[facility] Doctors [facility] Work Phone: [phone] Auto (Bld) [#/Vol]on 21-82-7719Cqjjtzzhr (Bld) [#/Vol]0.0859 10*3/uL0.0-0.3HOhioHealth Doctors Hospital Work Phone: [phone]/100 WBC Auto (Bld)on 01-16-1177Yhqnuecxq/100 WBC (Bld)1.039 %0.0-3.0[facility] Work Phone: benzodiazepines Screen Ql (U)on 11-20-2021 Benzodiazepines Ql (U)NegativeNegCleveland Clinic Fairview Hospital Work Phone: blood anion gapon 81-25-3359Qkzxu gap (Bld) [Moles/Vol]14.5 mmol/LHOhioHealth Doctors Hospital Work Phone: Klood erythrocytes count (number/volume)on 11-20-2021 RBC (Bld) [#/Vol]4.81 10*6/uL4.70-6.10[facility] Work Phone: Hlood leukocytes count (number/volume)on 42-98-2213DZW (Bld) [#/Vol]8.3 Thou/mL34.8-10.8HOhioHealth Doctors Hospital Work Phone: Tlood platelet counton 21-83-2399Rgyqipuvh (Bld) [#/Vol]301.2 Thou/yi2474-294AmbdoSelect Medical Specialty Hospital [facility] Work Phone: Llood total protein measurementon 12-99-4720Xnetlvw [Mass/Vol]8.0 g/dL6.3-8.2HOhioHealth Doctors Hospital Work Phone: Yalcium measurement (mass/volume)on 64-63-4394Wnaftbj (Unsp spec) [Mass/Vol]9.4 mg/dL8.4-10.2HOhioHealth Doctors Hospital Work Phone: Uhloride measurement (mass/volume)on 11-20-2021 Chloride (Unsp spec) [Mass/Vol]103 mmol/T90-039JvrtkSelect Medical Specialty Hospital [facility] Work Phone: [phone] Screen Ql (U)on 45-98-7243Wwehcxu Ql (U) NegativeNegativeSelect Medical Specialty [facility] Work Phone: complete Blood Count Auto Diffon 22-61-4730Ifemvymgm Absolute Auto0.1020Egafov4.0-0.3HOhioHealth Doctors Hospital AcuteComment on above: Performed By: #### CBC, ALCBLD, CMP, TSHRFLX, UDS, ALYSSA, ACET #### [address] [address]Oovrveqlo Percent Auto1.085Wqbyax7.0-3.0[facility] AcuteComment on above:Performed By: #### CBC, ALCBLD, CMP, TSHRFLX, UDS, ALYSSA, ACET #### [address] [address]Cnioilunqta Absolute Auto0.2742Lvwfnf5.0-1.1HOhioHealth Doctors Hospital AcuteComment on above:Performed By: #### CBC, ALCBLD, CMP, TSHRFLX, UDS, ALYSSA, ACET #### [address] [address]Udcifwcqkxu Percent Auto1.554Djnwvw1.0-10.0[facility] AcuteComment on above:Performed By: #### CBC, ALCBLD, CMP, TSHRFLX, UDS, ALYSSA, ACET #### [address] [address]Qpilsjynmbq distribution width (RBC) [Ratio]13.5 %Normal 10.0-15.5HOhioHealth Doctors Hospital AcuteComment on above:Performed By: #### CBC, ALCBLD, CMP, TSHRFLX, UDS, ALYSSA, ACET #### [address] [address]Xdslggwuup (Bld) [Volume fraction]44.0 %Amtfzs72.0-52.0[facility] AcuteComment on above:Performed By: #### CBC, ALCBLD, CMP, TSHRFLX, UDS, ALYSSA, ACET #### [address] [address]Yswkhrzkcs (Bld) [Mass/Vol]14.5 g/eJZzamat08.8-17.8HOhioHealth Doctors Hospital AcuteComment on above:Performed By: #### CBC, ALCBLD, CMP, TSHRFLX, UDS, ALYSSA, ACET #### [address] [address]Gefdrxlvlep Absolute Auto1.163Ehesdq6.0-5.5HOhioHealth Doctors Hospital AcuteComment on above:Performed By: #### CBC, ALCBLD, CMP, TSHRFLX, UDS, ALYSSA, ACET #### [address] [address]Blzrdbrqusx Percent Auto21.12Tshvvm12-63.1HOhioHealth Doctors Hospital AcuteComment on above:Performed By: #### CBC, ALCBLD, CMP, TSHRFLX, UDS, ALYSSA, ACET #### [address] [address]RYA (RBC) [Entitic mass]30.1 akDqrdrp76.5-32.5HOhioHealth Doctors Hospital AcuteComment on above:Performed By: #### CBC, ALCBLD, CMP, TSHRFLX, UDS, ALYSSA, ACET #### [address] [address]GCV (RBC) [Entitic vol]91.3 cTVbazvo24.0-94.0[facility] AcuteComment on above:Performed By: #### CBC, ALCBLD, CMP, TSHRFLX, UDS, ALYSSA, ACET #### [address] [address]Iikf Corpuscular HGB Conc33.0 g/zIGiioqd25.0-37.0[facility] AcuteComment on above:Performed By: #### CBC, ALCBLD, CMP, TSHRFLX, UDS, ALYSSA, ACET #### [address] [address]Wtwnkqwlp Absolute Auto0.3247Bxkymo9.1-1.0[facility] AcuteComment on above:Performed By: #### CBC, ALCBLD, CMP, TSHRFLX, UDS, ALYSSA, ACET #### [address] [address]Zxoqaqmqp Percent Auto8.125Rrajxk6.7-9.3HOhioHealth Doctors Hospital AcuteComment on above:Performed By: #### CBC, ALCBLD, CMP, TSHRFLX, UDS, ALYSSA, ACET #### [address] [address]Mofhpbgbyei Absolute Auto5.588Vuiizu9.0-8.1HOhioHealth Doctors Hospital AcuteComment on above:Performed By: #### CBC, ALCBLD, CMP, TSHRFLX, UDS, ALYSSA, ACET #### [address] [address]Zpatobyapks Percent Auto67.76Koeyxn33.2-75.2HOhioHealth Doctors Hospital AcuteComment on above:Performed By: #### CBC, ALCBLD, CMP, TSHRFLX, UDS, ALYSSA, ACET #### [address] [address]Yrczdfeq Ewmpu803.2 Thou/fy7Rscasj277-024Y[facility] AcuteComment on above:Performed By: #### CBC, ALCBLD, CMP, TSHRFLX, UDS, ALYSSA, ACET #### [address] [address]OAA (Bld) [#/Vol]4.81 10*6/uLNormal4.70-6.10[facility] AcuteComment on above:Performed By: #### CBC, ALCBLD, CMP, TSHRFLX, UDS, ALYSSA, ACET #### [address] [address]Ewubq Blood Count8.3 Thou/aN9Vuoaaf6.8-10.8HOhioHealth Doctors Hospital AcuteComment on above:Performed By: #### CBC, ALCBLD, CMP, TSHRFLX, UDS, ALYSSA, ACET #### [address] [address]Dytierwkqxwtk Metabolic Panelon 69-80-0638Lzsil gap [Moles/Vol]14.5 mmol/LNormalSelect [facility] AcuteComment on above: Performed By: #### CBC, ALCBLD, CMP, TSHRFLX, UDS, ALYSSA, ACET #### [address] [address]Ocsrxuw Aminotransferase V33 units/LNormal[address] AcuteComment on above:Performed By: #### CBC, ALCBLD, CMP, TSHRFLX, UDS, ALYSSA, ACET #### [address] [address]Lkvlghd [Mass/Vol]4.8 g/dLNokindred hospital - greensboro3.5-5.0[facility] AcuteComment on above:Performed By: #### CBC, ALCBLD, CMP, TSHRFLX, UDS, ALYSSA, ACET #### [address] [address]Dqwdvjr Globulin Ratio1.5 g/dLNoZanesville City Hospital AcuteComment on above:Performed By: #### CBC, ALCBLD, CMP, TSHRFLX, UDS, ALYSSA, ACET #### [address] [address]Azpdeudx Gquwfukuxgv10 units/OOaxeir71-807[facility] AcuteComment on above:Performed By: #### CBC, ALCBLD, CMP, TSHRFLX, UDS, ALYSSA, ACET #### [address] [address]Kyziaysyb Amino Hismluhyvsl01 units/DEzqjts00-10McmaeSelect Medical Specialty Hospital [facility] AcuteComment on above:Performed By: #### CBC, ALCBLD, CMP, TSHRFLX, UDS, ALYSSA, ACET #### [address] [address]Nbusmhonb [Mass/Vol]0.5 mg/dLNormal0.2-1.3HOhioHealth Doctors Hospital AcuteComment on above:Performed By: #### CBC, ALCBLD, CMP, TSHRFLX, UDS, ALYSSA, ACET #### [address] [address]Gubrdwf [Mass/Vol]9.4 mg/dLNormal8.4-10.2HOhioHealth Doctors Hospital AcuteComment on above:Performed By: #### CBC, ALCBLD, CMP, TSHRFLX, UDS, ALYSSA, ACET #### [address] [address]Vwaebsmg [Moles/Vol]103 mmol/UGuqrau87-642CbbrfSelect Medical Specialty Hospital [facility] AcuteComment on above:Performed By: #### CBC, ALCBLD, CMP, TSHRFLX, UDS, ALYSSA, ACET #### [address] [address]DF8 [Moles/Vol]22 mmol/NLrqwjr47-32FsdyoSelect Medical Specialty Hospital [facility] AcuteComment on above:Performed By: #### CBC, ALCBLD, CMP, TSHRFLX, UDS, ALYSSA, ACET #### [address] [address]Oyyomumyzq [Mass/Vol]1.0 mg/dLNormal0.7-1.3HOhioHealth Doctors Hospital AcuteComment on above:Performed By: #### CBC, ALCBLD, CMP, TSHRFLX, UDS, ALYSSA, ACET #### [address] [address]Ablwzurthr Clr Calc Vqikqadg86.4833NormalHenry County Hospital AcuteComment on above:Performed By: #### CBC, ALCBLD, CMP, TSHRFLX, UDS, ALYSSA, ACET #### [address] [address]Fsvejmhe (S) [Mass/Vol]3.3 g/dLSumma Health AcuteComment on above:Performed By: #### CBC, ALCBLD, CMP, TSHRFLX, UDS, ALYSSA, ACET #### [address] [address]Rnihomfxai Filtration Rate> 60.0[facility] AcuteComment on above:Performed By: #### CBC, ALCBLD, CMP, TSHRFLX, UDS, ALYSSA, ACET #### [address] [address]Ipdqtsa [Mass/Vol]138 mg/vTFmhb94-122FsqdmSelect Medical Specialty Hospital [facility] AcuteComment on above:Performed By: #### CBC, ALCBLD, CMP, TSHRFLX, UDS, ALYSSA, ACET #### [address] [address]Aujbebrvg [Moles/Vol]3.5 mmol/LLow3.6-5.0[facility] AcuteComment on above:Performed By: #### CBC, ALCBLD, CMP, TSHRFLX, UDS, ALYSSA, ACET #### [address] [address]Dlgpofl [Mass/Vol]8.0 g/dLNormal6.3-8.2HOhioHealth Doctors Hospital AcuteComment on above:Performed By: #### CBC, ALCBLD, CMP, TSHRFLX, UDS, ALYSSA, ACET #### [address] [address]Thjhqc [Moles/Vol]136 mmol/TYyvnou940-906CpiugSelect Medical Specialty Hospital [facility] AcuteComment on above:Performed By: #### CBC, ALCBLD, CMP, TSHRFLX, UDS, ALYSSA, ACET #### [address] [address]Xesl nitrogen [Mass/Vol]21 mg/dLHigh9-20[facility] AcuteComment on above:Performed By: #### CBC, ALCBLD, CMP, TSHRFLX, UDS, ALYSSA, ACET #### [address] [address]Eldb Screen Urineon 74-41-4134Lavmkpnplzp Screen Urine NegativeNormalNegCleveland Clinic [facility] AcuteComment on above:Performed By: #### CBC, ALCBLD, CMP, TSHRFLX, UDS, ALYSSA, ACET #### [address] [address]Ajtmramzrergdgu Screen UrineNegativeNormalNegativeSelect [facility] AcuteComment on above:Performed By: #### CBC, ALCBLD, CMP, TSHRFLX, UDS, ALYSSA, ACET #### [address] [address]Kcoosndlghg Screen UrineNegativeNormalNegCleveland Clinic [facility] Hospital AcuteComment on above:Performed By: #### CBC, ALCBLD, CMP, TSHRFLX, UDS, ALYSSA, ACET #### [address] [address]Fwrlfrf Screen UrineNegativeNormalNegCleveland Clinic Fairview Hospital AcuteComment on above:Performed By: #### CBC, ALCBLD, CMP, TSHRFLX, UDS, ALYSSA, ACET #### [address] [address]Ayikrt Screen UrineNegativeNormalNegCleveland Clinic Fairview Hospital AcuteComment on above:Performed By: #### CBC, ALCBLD, CMP, TSHRFLX, UDS, ALYSSA, ACET #### [address] [address]Miuikwtip UrineNegativeNormalNegCleveland Clinic Fairview Hospital AcuteComment on above:Result Comment: Screening Technology (On-Site Device) Testing Cut-Offs for the device are as follows: Drug Screening Threshold Amphetamine 1000 ng/mL Methamphetamine 1000 ng/mL MDMA 1500 ng/mL Cocaine Metabolite 300 ng/mL Opiates 2000 ng/mL Oxycodone 100 ng/mL Phenycyclidine 25 ng/mL Marijuana Metabolite 50 ng/mL All positives will be sent out for confirmation. This panel includes tests for specimen validity.Performed By: #### CBC, ALCBLD, CMP, TSHRFLX, UDS, ALYSSA, ACET #### [address] [address]Zenjrbecuiucu Screen UrineNegativeNormalNegCleveland Clinic Fairview Hospital AcuteComment on above:Performed By: #### CBC, ALCBLD, CMP, TSHRFLX, UDS, ALYSSA, ACET #### [address] [address]Axzaktctj Antidepressant UrineNegativeNormalNegativeSelect Medical Specialty [facility] AcuteComment on above:Performed By: #### CBC, ALCBLD, CMP, TSHRFLX, UDS, ALYSSA, ACET #### [address] [address]Atgzk Barbiturate ScreenNegativeNormalNegCleveland Clinic Fairview Hospital AcuteComment on above:Performed By: #### CBC, ALCBLD, CMP, TSHRFLX, UDS, ALYSSA, ACET #### [address] [address]Awkgxqhzeiu Auto (Bld) [#/Vol]on 33-04-9839Rerbaclhxpq (Bld) [#/Vol]0.0993 10*3/uL0.0-1.1HOhioHealth Doctors Hospital Work Phone: Eosinophils/100 WBC Auto (Bld)on 11-20-2021 Eosinophils/100 WBC (Bld)1.201 %0.0-10.0[facility] Work Phone: Erythrocyte distribution width Auto (RBC) [Ratio]on 21-03-3559Lkbjdxemmgh distribution width (RBC) [Ratio]13.5 %10.0-15.5HOhioHealth Doctors Hospital Work Phone: Glomerular filtration rate (GFR) estimation/1.73 sq m using serum, plasma, or whole bon 90-39-7297DLJ/1.73 sq M.predicted CKD-EPI (S/P/Bld) [Vol rate/Area]> 60.0[facility] Work Phone: Laboratory - Chemistry and Chemistry - challengeon 88-15-2114iU (U)6.0 [pH]5.0-8.5HOhioHealth Doctors Hospital Work Phone: Laboratory - Hematology and Cell countson 11-20-2021 Hemoglobin Ql (U)NegativeNegativeSelect Medical Specialty [facility] Work Phone: Lymphocytes (Bld) [#/Vol]1.802 10*3/uL1.0-5.5HOhioHealth Doctors Hospital Work Phone: Neutrophils (Bld) [#/Vol]5.595 10*3/uL2.0-8.1HOhioHealth Doctors Hospital Work Phone: Laboratory - Urinalysison 86-94-5244Sdpdehby LM Nom (Urine sed)AbsentSelect [facility] Work Phone: [phone] Auto (RBC) [Entitic mass]on 53-20-8390XWG (RBC) [Entitic mass]30.1 pg28.5-32.5HOhioHealth Doctors Hospital Work Phone: [phone] Auto (RBC) [Mass/Vol]on 97-19-8333SCXK (RBC) [Mass/Vol]33.0 g/dL32.0-37.0[facility] Work Phone: MCV (mean corpuscular volume) determinationon 69-77-5828WVX (RBC) [Entitic vol]91.3 fL80.0-94.0[facility] Work Phone: [phone] Auto (Bld) [#/Vol]on 14-19-5816Lejxxzmlg (Bld) [#/Vol]0.6828 10*3/uL0.1-1.0[facility] Work Phone: Monocytes/100 WBC Auto (Bld)on 77-49-5669Mkjggquro/100 WBC (Bld)8.261 %1.7-9.3HOhioHealth Doctors Hospital Work Phone: Mucus LM Ql (Urine sed)on 88-38-2899Jhebx Ql (Urine sed)AbsentSelect [facility] Work Phone: Neutrophils/100 WBC Auto (Bld)on 11-20-2021 Neutrophils/100 WBC (Bld)67.70 %42.2-75.2HOhioHealth Doctors Hospital Work Phone: Nitrite Test strip Ql (U)on 36-26-0606Sdeokjz Ql (U) NegativeNegCleveland Clinic Fairview Hospital Work Phone: No Panel Informationon 28-43-3795Tavaw CastsAbsent [facility] Work Phone: Urine RBCAbsent0-[address] [address] Work Phone: Lymphocytes (%) (Auto)21.8020-51.1HOhioHealth Doctors Hospital Work Phone: Pharmacy Creatinine Clearance (Chem79.4833[facility] Work Phone: Plasma/Serum Blood Alcohol< 10.00 mg/dL0.0-10.00[facility] Work Phone: Phencyclidine Screen Ql (U)on 54-94-0552Dlduiowtbumzh Ql (U)NegativeHolzer Medical Center – [facility] Work Phone: Salicylateon 32-48-5088Dxutmhahkt< 1.3Omfowx9-42Dhnlj[address] AcuteComment on above:Performed By: #### CBC, ALCBLD, CMP, TSHRFLX, UDS, ALYSSA, ACET #### [facility] [address], [place] [address]Whxikupaj urine barbiturate detectionon 11-20-2021 Barbiturates Screen Ql (U)NegativeNegCleveland Clinic Fairview Hospital Work Phone: Screening urine opiates detectionon 16-63-2174Svtwkwg Screen Ql (U)NegativeNegCleveland Clinic Fairview Hospital Work Phone: Serum creatinine measurement (mass/volume)on 32-02-8309Yemdiwhzgs [Mass/Vol]1.0 mg/dL0.7-1.3HOhioHealth Doctors Hospital Work Phone: Serum globulin measurement (mass/volume)on 11-20-2021 Globulin (S) [Mass/Vol]3.3 g/dLSelect [facility] Specialty Hospital [facility] Work Phone: [phone] or plasma alanine aminotransferase measurement (enzymatic activity/volume)on 13-99-6151TZJ [Catalytic activity/Vol]25 units/L 17-59[facility] Work Phone: [phone] [Catalytic activity/Vol]33 units/L4-50[facility] Work Phone: [phone] or plasma albumin/globulin mass ratioon 54-28-3736Ftstqoi/Globulin [Mass ratio]1.5 g/dLSelect Medical Specialty Hospital [facility] [place] Work Phone: [phone] or plasma alkaline phosphatase measurementon 12-93-4361LRX [Catalytic activity/Vol]53 units/T48-904CgtiuSelect Medical Specialty Hospital - [place] Work Phone: [phone] or plasma bilirubin measurement (mass/volume)on 37-17-6367Trymkwvji [Mass/Vol]0.5 mg/dL0.2-1.3HOhioHealth Doctors Hospital Work Phone: [phone] or plasma carbon dioxide measurement (moles/volume)on 94-85-4408XP2 [Moles/Vol]22 mmol/Q88-94MzwrkSelect Medical Specialty Hospital - [place] Work Phone: Serum or plasma glucose measurement (mass/volume)on 18-43-6934Fgddqkp [Mass/Vol]138 mg/wHSbyy92-133MomkjSelect Medical Specialty Hospital - [facility] Work Phone: [phone] or plasma salicylates detectionon 11-20-2021 Salicylates Ql< 1.0 mg/dL0[facility] Work Phone: [phone] or plasma thyroid stimulating hormone (TSH) measurementon 73-18-6825NVJ Qn0.65 mIU/mL0.49-4.67[facility] Work Phone: Serum or plasma urea nitrogen measurement (mass/volume)on 96-12-4318Niyr nitrogen [Mass/Vol]21 mg/dLBristol County Tuberculosis Hospital-[address] [place] [address] Work Phone: Serum, plasma, or blood potassium measurement (moles/volume)on 28-22-9122Ddmarvtdc (S/P/Bld) [Moles/Vol]3.5 mmol/LLow3.6-5.0 [facility] Work Phone: Serum, plasma, or whole blood sodium measurement (moles/volume)on 49-88-1060Ckltgk (S/P/Bld) [Moles/Vol]136 mmol/B695-700YejvfSelect Medical Specialty Hospital - [place] Work Phone: squamous epithelial cells detection in urine sediment by light microscopyon 67-10-2789Rzjtxkyrnx cells.squamous LM Ql (Urine sed)0-2 [facility] Work Phone: TSB with FT4 reflexon 89-89-4484ARL with FT4 reflex 0.65 mIU/mLNormal0.49-4.67[facility] AcuteComment on above:Performed By: #### CBC, ALCBLD, CMP, TSHRFLX, UDS, ALYSSA, ACET #### [address] [address]Snzwcybtfz and Microscopicon 44-44-4345Spjzgkkq UrineTrace NormalSelect Medical Specialty Hospital - [facility] AcuteComment on above:Performed By: #### UAMIC #### [address] [address]Odrjq UrineAbsentNoZanesville City Hospital AcuteComment on above:Performed By: #### UAMIC #### [address] [address]Buluz UrineAbsentSumma Health AcuteComment on above:Performed By: #### UAMIC #### [address] [address]Gkvyccckdlj UrineAbsentSumma Health Acute Comment on above:Performed By: #### UAMIC #### [address] [place], [place] [address]Dhmaq Red Blood CellsAbsentNormal0-2HOhioHealth Doctors Hospital AcuteComment on above:Performed By: #### UAMIC #### [facility] [address], [place] [address]Jkkab White Blood CellsAbsentNormal0-4HOhioHealth Doctors Hospital AcuteComment on above:Performed By: #### UAMIC #### [facility] [address], [place] [address]Ozwne UrineAbsentSumma Health AcuteComment on above:Performed By: #### UAMIC #### [facility] [address], [place] [address]Vmgfmacs UrineProMedica Defiance Regional Hospital AcuteComment on above:Performed By: #### UAMIC #### [facility] [address], [place] [address]Hgatxarv Epithelial Cell Urine0-2NSumma Health Akron Campus AcuteComment on above:Performed By: #### UAMIC #### [facility] [address], [place] [address]Wdhvzfm (U)ClearNoalCBellevue Hospital Acute Comment on above:Performed By: #### UAMIC #### [facility] [address], [place] [address]Tojug (U)YellowNoBerger Hospital Acute Comment on above:Performed By: #### UAMIC #### [facility] [address], [place] [address]Ccggjyfqz UrineNegativeNormalNegCleveland Clinic Fairview Hospital AcuteComment on above:Performed By: #### UAMIC #### [facility] [address], [place] [address]Mmnog UrineNegativeNormazNegCleveland Clinic Fairview Hospital Acute Comment on above:Performed By: #### UAMIC #### [facility] [address], [place] [address]Wsowjgm Urine UANegativeFostoria City Hospital AcuteComment on above:Performed By: #### UAMIC #### [facility] [address], [place] [address]Qicfhkw Ql (U)NegativeNormCoshocton Regional Medical Center AcuteComment on above:Performed By: #### UAMIC #### [facility] [address], [place] [address]Nxedwffff esterase Test strip Ql (U)NegativeNormalNegative [facility] AcuteComment on above:Performed By: #### UAMIC #### [facility] [address], [place] [address]Wsuhtqi UrineNegativeNormalNegCleveland Clinic Fair[facility] Hospital AcuteComment on above:Performed By: #### UAMIC #### [facility] [address], [place] [address]oJ (U)6.0 [pH]Normal5.0-8.5HOhioHealth Doctors Hospital Acute Comment on above:Performed By: #### UAMIC #### [facility] [address], [place] [address]Erjlgbwm [place] Urine1.025 mg/dLNormal1.005-1.030[facility] AcuteComment on above:Performed By: #### UAMIC #### [facility] [address], [place] [address]Ulhdd Protein DipTraceNormalNegCleveland Clinic Fair[facility] Hospital AcuteComment on above:Performed By: #### UAMIC #### [facility] [address], [place] [address]Ndvgimigtaqo Urine0.2 mg/dLNormal0.2-1.0[facility] AcuteComment on above:Performed By: #### UAMIC #### [facility] [address], [place] [address]Hhpsf Trichomonas species detection by light microscopyon 95-45-0902Ylgddbdljaa sp LM Ql (U)AbsentSelect Medical Specialty Hospital - [facility] Work Phone: Urine cannabinoids detection by screening methodon 81-00-8912Dnhvpjlnnkun Screen Ql (U)NegativeNegCleveland Clinic Fairview Hospital Work Phone: Urine clarityon 11-37-4817Uzfwsip (U)ClearClearSelect Medical Specialty Hospital [facility] Work Phone: Urine coloron 47-21-6900Cooaw (U)YellowYelOhioHealth Pickerington [facility] Work Phone: Urine glucose detectionon 53-58-1049Swegltq Ql (U) NegativeNegCleveland Clinic Fairview Hospital Work Phone: Urine ketones detectionon 41-55-4078Nqahsnu Ql (U) NegativeNegCleveland Clinic Fairview Hospital Work Phone: Urine leukocyte esterase detection by automated test stripon 22-62-1002Yabyzdyej esterase Auto test strip Ql (U)NegativeNegCleveland Clinic Fairview Hospital Work Phone: Urine leukocytes detection by microscopyon 11-20-2021 WBC Visual Ql (U)Absent0-4HOhioHealth Doctors Hospital Work Phone: Urine oxycodone measurement by confirmatory method (mass/volume)on 75-06-7192ccpMXPWVF Confirm (U) [Mass/Vol]NegativeHolzer Medical Center – [facility] Work Phone: comment on above:Screening Technology (On-Site Device)Testing Cut-Offs for the device are as follows:Drug Screening T hresholdAmphetamine 1000 ng/mLMethamphetamine 1000 ng/mLMDMA 1500 ng/mLCocaine Metabolite 300 ng/mLOpiates 2000 ng/mLOxycodone 100 ng/mLPhenycyclidine 25 ng/mLMarijuana Metabolite 50 ng/mLAll positives will be sent out for confirmation. This panel includes tests for specimen validity.Urine protein detection by automated test stripon 76-43-4549Mstwiph Auto test strip Ql (U) Trace mg/dLNegCleveland Clinic Fairview Hospital Work Phone: Urine specific gravity measurementon 11-20-2021 Specific gravity (U) [Rel density]1.025 mg/dL1.005-1.030[facility] Work Phone: Urine total bilirubin detectionon 61-46-4494Ejvqcfehd Ql (U)NegativeNegC[facility] Clinic [facility] Hospital Work Phone: Urine tricyclic antidepressant measurementon 95-56-8967Itqjpcyiq antidepressants (U) [Mass/Vol]NegativeNegCleveland Clinic Fairview Hospital Work Phone: Urine urobilinogen measurementon 11-20-2021 Urobilinogen Ql (U)0.2 mg/dL0.2-1.0[facility] Work Phone: Urine yeast-like organism detectionon 11-20-2021 Fungi.yeastlike LM Ql (Urine sed)AbsentSelect Medical Specialty Hospital [facility] Work Phone: Whole blood hematocriton 58-44-5885Egpescumhc (Bld) [Volume fraction]44.0 %42.0-52.0[facility] Work Phone: a.OFFVISon 11-10-2021.[facility] [address] [place] [address] Office Visit Report Signed Patient Name: Tom Khan 0 Date of : 1955 Age/Sex: 66 / M Date of Service: Location: [facility] Behavioral Health Outpt Attending physician: Karen Sotelo [...] exenatide microspheres 2 mg/0.85 mL subcutaneous auto-injector (BydureAlliqua BCise) 2 mg subcut Q7D exenatide microspheres [...] History of Sexual Abuse: No 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 [place]: No Highest Level of School Completed/Degree Received: Bachelor's Degree Cultural/Personal/Worship Beliefs that Affect Patient Care: No Cultural or Worship Modesty Issues Regarding Care by Staff of the Opposite Sex: No Worship Items Worn: No Other Factors Affecting Patient [...] his finances and w (more content not included)...[facility].OFFVISon 10-31-2021.[facility] [address] [place] [address] Office Visit Report Signed Patient Name: Tom Khan 0 Date of : 1955 Age/Sex: 66 / M Date of Service: Location: [facility] Behavioral Health Outpt Attending physician: Apolinar CHEN [...] occasion. 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 He has a couple of things he is looking forward to and that is the establishment of meant of a men's group at restoration and that seems positive for him. A couple of times during session he would report I'm still thinking about the 'F 'word and therapist reminded him that we were not going to discuss that and patient was able to move on. While it was still obviously in his thoughts he was able to refrain from that discussion. So encouraging him to explore some penitentiary options for productivity and activity. Listened and [...] unspecified Category: Medical Dictated By: TI Harrington 10/31/21 1642 Signed By: 10/31/21 165 Cosigned By (if applicable): [phone] cc: ARTHUR [facility].OFFVISon 10-19-2021.[facility] [address] [place] [address] [place] [address] Office Visit Report Signed Patient Name: Tom Khan 0 Date of : 1955 Age/Sex: 66 / M Date of Service: Location: [facility] Behavioral Health Outpt Attending physician: Shai Farfan [...] days Is patient having pain: No [facility] (Updated 08/22/21 @ 00:00 by Background Shyam) Diabetes Generalized anxiety disorder HTN (hypertension) with [...] History of Sexual Abuse: No 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 [place]: No Highest Level of School Completed/Degree Received: Bachelor's Degree Cultural/Personal/Worship Beliefs that Affect Patient Care: No Cultural or Worship Modesty Issues Regarding Care by Staff of the Opposite Sex: No Worship Items Worn: No Other Factors Affecting Patient [...] and utilize his crisi (more content not included)...[facility].OFFVISon 10-03-2021.[facility] [address] [place] [address] Office Visit Report Signed Patient Name: Tom Khan 0 Date of : 1955 Age/Sex: 66 / M Date of Service: Location: [facility] Behavioral Health Outpt Attending physician: Apolinar LUKE [...] what he would like to do for penitentiary and to enjoy penitentiary. 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 Patient reports that (more content not included)...[facility] HospitalC[facility] ([facility])on 71-86-4512PIWG-CoV-2 (COVID-19) RNA JOSE+probe Ql (Unsp spec)Not detectedNormal NOT DETECTEDThe Tuscarawas HospitalComment on above:Result Comment: This test is not yet approved or cleared by the [place] FDA. When there are no FDA- approved or cleared tests available, and other criteria are met, FDA can make tests available under an emergency access mechanism called an Emergency Use Authorization (EUA). The EUA for this test is supported by the Instruction Dean of Health and Human Service's (HHS's) declaration [...] of clinical signs and symptoms consistent with SARS-CoV-2.Performed By: #### CBC #### [facility] [address], [place] [address] Dr. Cary Licona.Evi 08-05-2021.[place] [id number] Progress Note Signed Patient Name: Tom Khan 0 Date of : 1955 Age/Sex: 65 / M Location: Geriatric [facility] Partial Attending physician: Gilles Farfan MD Subjective Subjective Date of exam: 08/05/21 Subjective Narrative: Tom is seen along with his Jaci today for follow-up in [facility]. He has been in the program [...] DMITRY Brice 08/05/21 1631 Signed By: 08/05/21 163 Cosigned By (if applicable): [phone] cc: DMITRY BriceNoPreston Memorial HospitalCOMPREHENSIVE METABOLIC PANELon 40-91-8248Nhnxaks [Mass/Vol]4.7 g/dLNormal3.6-5.1Quest DiagnosticsComment on above:Performed By: #### 42403, 4990 #### [facility] [address], [address] [place] [address] [employer] Specialist: Ck Wallis MDAlbumin/Globulin [Mass ratio]1.5 {ratio}Normal 1.0-2.5Quest DiagnosticsComment on above:Performed By: #### 32288, 7600 #### [facility] of [address], [address] [place] [address] [employer] Specialist: Ck Wallis MDALP [Catalytic activity/Vol]39 U/KFjuads71-637 [facility] DiagnosticsComment on above:Performed By: #### 34076, 7600 #### [facility] of [address], [address] [place] [address] [employer] Specialist: Ck Wallis MDALT [Catalytic activity/Vol]39 U/LNormal9-46 Quest DiagnosticsComment on above:Performed By: #### 54098, 7600 #### [facility] of [address], [address] [place] [address] [employer] Specialist: Ck Wallis MDAST [Catalytic activity/Vol]29 U/FXjblaa56-50 Quest DiagnosticsComment on above:Performed By: #### 10987, 7600 #### [facility] of [address], [address] [place] [address] [employer] Specialist: Ck Wallis MDBilirubin [Mass/Vol]0.3 mg/dLNormal0.2-1.2 Quest DiagnosticsComment on above:Performed By: #### 29518, 7600 #### [facility] of [address], [address] [place] [address] [employer] Specialist: Ck Wallis MDBUN/CREATININE RATIONOT APPLICABLENormal6-22 Quest DiagnosticsComment on above:Performed By: #### 77461, 7600 #### [facility] of [address], [address] [place] [address] [employer] Specialist: Ck Wallis MDCalcium [Mass/Vol]9.6 mg/dLNormal8.6-10.3Quest DiagnosticsComment on above:Performed By: #### 59778, 7600 #### [facility] of [address], [address] [place] [address] [employer] Specialist: Ck Wallis MDChloride [Moles/Vol]101 mmol/RSqbktd46-734 Quest DiagnosticsComment on above:Performed By: #### 76958, 7600 #### [facility] [place] [address] [employer] Specialist: Ck Wallis MDCO2 [Moles/Vol]27 mmol/BLhzres58-27Zrusz DiagnosticsComment on above:Performed By: #### 98318, 7600 #### [facility] [place] [address] [employer] Specialist: Ck MCKINLEYreatinine [Mass/Vol]1.00 mg/dLNormal0.70-1.25 Quest DiagnosticsComment on above:Result Comment: For patients >49 years of age, the reference limit for Creatinine is approximately 13% higher for people identified as -Guyanese.Performed By: #### 49673, 7600 #### [facility] [place] [address] [employer] Specialist: Ck Wallis MDeGFR NON-AFR. OCFDSSVZ99 mL/min/1.82b1Vymvrv> OR = 60Quest DiagnosticsComment on above:Performed By: #### 27390, 7600 #### [facility] [place] [address] [employer] Specialist: Ck Wallis MDGFR/1.73 sq M.predicted among blacks MDRD (S/P/Bld) [Vol rate/Area]92 mL/min/{1.73_m2}Normal> OR = 60[facility] Comment on above:Performed By: #### 98821, 7600 #### [facility] [place] [address] [employer] Specialist: Ck Wallis MDGlobulin (S) [Mass/Vol]3.1 g/dLNormal1.9-3.7 Quest DiagnosticsComment on above:Performed By: #### 89201, 7600 #### [facility] of [place] [address] [place] [address] [employer] Specialist: Ck Wallis MDGlucose [Mass/Vol]135 mg/iAEgzj24-05Uibqp DiagnosticsComment on above:Result Comment: Fasting reference interval For someone without known diabetes, a glucose value >125 mg/dL indicates that they may have diabetes and this should be confirmed with a follow-up test.Performed By: #### 46858, 7600 #### [facility] [place] [address] [employer] Specialist: Ck Wallis MDPotassium [Moles/Vol]3.9 mmol/LNormal3.5-5.3 Quest DiagnosticsComment on above:Performed By: #### 40323, 7600 #### [facility] [place] [address] [employer] Specialist: Ck Wallis MDProtein [Mass/Vol]7.8 g/dLNormal6.1-8.1Quest DiagnosticsComment on above:Performed By: #### 91794, 7600 #### [facility] [place] [address] [employer] Specialist: Ck Wallis MDSodium [Moles/Vol]138 mmol/SVssaeg374-357Vseoq DiagnosticsComment on above:Performed By: #### 15351, 7600 #### [facility] [place] [address] [employer] Specialist: Ck Wallis MDUrea nitrogen [Mass/Vol]25 mg/dLNormal7-25 Quest DiagnosticsComment on above:Performed By: #### 28647, 7600 #### [facility] [place] [address] [employer] Specialist: Ck Wallis MDLIPID PANEL, STANDARDon 06-97-7332Utblihsqbhr [Mass/Vol]166 mg/dLNormal<200Quest DiagnosticsComment on above:Performed By: #### 83169, 7600 #### [facility] [address] [place] [address] [employer] Specialist: Ck MCKINLEYholesterol in HDL [Mass/Vol]41 mg/dLNormal> OR = 40Quest DiagnosticsComment on above:Performed By: #### 28000, 7600 #### [facility] [address], [address] [place] [address] [employer] Specialist: Ck MCKINLEYholesterol in LDL [Mass/Vol]85 mg/dLNormal Quest DiagnosticsComment on above:Result Comment: Reference range: <100 Desirable range <100 mg/dL for primary prevention; <70 mg/dL for patients with CHD or diabetic patients with > or = 2 CHD risk factors. LDL-C is now calculated using the Kimo calculation, which is a validated novel method providing better accuracy than the Friedewald equation in the estimation of LDL-C. Nathan SS et al. KETTY. 2013;310(19): 5079-3108 (http://education.Netseer.Keystone Kitchens/faq/PRG386)Performed By: #### 74630, 7600 #### [facility] [address], [address] [place] [address] [employer] Specialist: Ck Luevano.total/Cholesterol in HDL [Mass ratio]4.0 {ratio}Normal<5.0Quest DiagnosticsComment on above:Performed By: #### 74556, 7600 #### [facility] [address], [address] [place] [address] [employer] Specialist: Ck MILLER HDL SIPUWIZHTVQ877 mg/dL (calc)Normal<130 Quest DiagnosticsComment on above:Result Comment: For patients with diabetes plus 1 major ASCVD risk factor, treating to a non-HDL-C goal of <100 mg/dL (LDL-C of <70 mg/dL) is considered a therapeutic option.Performed By: #### 94796, 7600 #### [facility] [address], [address] [place], [place] [address] [employer] Specialist: Ck Wallsi MDTriglyceride [Mass/Vol]332 mg/dLHigh<150Quest DiagnosticsComment on above:Result Comment: If a non-fasting specimen was collected, consider repeat triglyceride testing on a fasting specimen if clinically indicated. Trever et al. J. of Clin. Lipidol. 2015;9:129-169.Performed By: #### 35081, 7600 #### [facility] [address] [facility], [address] [place] [address] [employer] Specialist: Ck Wallis MDCovid-19 PCR (CVDTB)on 54-89-7318XEFI-CoV-2 (COVID-19) RNA JOSE+probe Ql (Unsp spec)Not detectedNormalNOT DETECTEDThe Tuscarawas HospitalComment on above:Result Comment: This test is not yet approved or cleared by the [place] FDA. When there are no FDA-approved or cleared tests available, and other criteria are met, FDA can make tests available under an emergency access mechanism called an Emergency Use Authorization (EUA). The EUA for this test is supported by the Instruction Dean of Health and Human Service's (HHS's) declaration [...] of clinical signs and symptoms consistent with SARS-CoV-2.Performed By: #### CVDTBH #### [facility] [address] [place], [place] [address] Dr. Cary Licona.Evi 07-22-2021.[address] [address] Progress Note Signed Patient Name: Tom Khan 0 Date of : 1955 Age/Sex: 65 / M Location: Geriatric [facility] Partial Attending physician: Gilles Farfan MD [...] Farfan his outpatient provider also working in [facility]. Dr. Farfan increase Celexa to 40 [...] By: 07/22/21 1529 Cosigned By (if applicable): [id number] cc: DMITRY BriceMarmet Hospital for [facility] BRAIN WO CON on [id number] BRAIN WO CONEXAMINATION: MRI BRAIN WO CON, 07/21/2021 12:59 PM EST HISTORY: [...] Electronically authenticated by: LULA RODRIGUEZ Date: 2021-07-21 14:13[facility].PN.PSYon 07-15-2021.PN.[place] [id number] Progress Note Signed Patient Name: Tom Khan 0 Date of : 1955 Age/Sex: 65 / M Location: Geriatric [facility] Attending physician: Gilles Farfan MD Subjective Subjective [...] depressed even while he is working at [employer] which provides evidence for him that a [...] their safety they are to contact the [facility] office. If the office is not [...] antipsychotic. Dictated By: Gilles Farfan MD 07/15/21 1356 Signed By: 07/15/21 7808 Cosigned By (if applicable): [id number] cc: Gilles Farfan MDJackson General HospitalP.PNTahmina 07-01-2021 [place] [address] Progress Note Signed Patient Name: Tom Khan 0 Date of : 1955 Age/Sex: 65 / M Location: Geriatric [facility] Partial Attending physician: Gilles Farfan MD [...] By: 07/01/21 1525 Cosigned By (if applicable): [id number] cc: DMITRY BriceJackson General HospitalCT CHEST WO W CONon [id number] CHEST WO W CONEXAMINATION: CTA CHEST WO W CON HISTORY: SHORTNESS OF BREATH [...] Electronically authenticated by: CELINE OLIVERA Date: 2021-06-23 22:25NormCincinnati Children's Hospital Medical CenterFREE T4on [id number] T4 [Mass/Vol]1.05 ng/dLNormal 0.78-2.19Doctors HospitalComment on above:Performed By: #### FT4 #### [facility] [address] [place] [address] [address] Cary Licona..[facility] 06-24-20[place] [address] History Physical Report Signed Patient Name: Tom Khan 0 Date of : 1955 Age/Sex: 65 / M Location: Geriatric [facility] Attending physician: Gilles Farfan MD [facility] History of Present Illness Date of Exam: [...] that they have spoken with their financial advisor and they are actually in a very good financial situation. 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 Tom repeated numerous times during our session that he needed to get back to work. 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 He actually has several interviews lined [...] with Dr. Shai Farfan and Karen at [facility]. He is currently on [employer], [...] not a suicide attempts. History [facility] (more content not included)...NormalHawthorn Children'S Psychiatric HospitalTS on 66-46-2941SNU1.217 uIU/mLNormal0.470-4.680The [facility]awas HospitalComment on above:Performed By: #### TSH #### [facility] [address] [place] [address] [address] Cary Wiggins [facility] SystemComment on above: Result Comment: <0.34 UIU/ml HYPERTHYROID 0.34-5.60 UIU/ml EUTHYROID >5.60 UIU/ml HYPOTHYROIDPerformed By: #### TSH #### [facility] [address] [place] [address] Dr. Cary GILES ADMITon [id number] [Catalytic activity/Vol]100 U/L Dahcjt48-205Ddd [facility] HospitalComment on above:Performed By: #### CMADM #### [facility] [address] [place] [address] Dr. Cary Salazar.MB [Mass/Vol]0.70 ng/mLNormal<=2.37The [facility] Comment on above:Performed By: #### CMADM #### [facility] [address] [place] [address] Dr. Cary LantiguaTROP7.2 pg/mLNormal4.0-42.2The [facility]awas HospitalComment on above:Result Comment: CUT-OFF POINTS HAVE BEEN ESTABLISHED BASED ON THE FOURTH UNIVERSAL DEFINITIONS OF MYOCARDIAL INFARCTION. THE UPPER REFERENCE LIMIT (URL) OF TROPONIN, DEFINED THE 99TH PERCENTILE OF cTnI DISTRIBUTION IN A REFERENCE POPULATION, HAS BEEN CONFIRMED THE DECISION THRESHOLD FOR RI DIAGNOSIS.Performed By: #### CMADM #### [facility] [address] [place] [address] Dr. Cary PaganO47.0 ng/mLNormal<=121.0The [facility]awas HospitalComment on above: Performed By: #### CMADM #### [facility] [address] [place] [address] Dr. Cary García AUTO DIFFon [id number] #0.0 103/ulNormal0.0-0.1The [facility]awas HospitalComment on above:Performed By: #### CBC #### [facility] [address] [place] [address] Dr. Cary Gaytansophils/100 WBC (Bld)0.3 %Normal0.2-2.0The [facility] Comment on above:Performed By: #### CBC #### [facility] [address] [place] [address] Dr. Cary Tucker #0.1 103/ulNormal0.0-0.7The [facility]awas HospitalComment on above: Performed By: #### CBC #### [facility] [address] [place] [address] Dr. Cary Cravenosinophils/100 WBC (Bld)0.9 %Normal0.9-7.0[facility] Comment on above:Performed By: #### CBC #### [facility] [address] [place] [address] Dr. Cary Cravenrythrocyte distribution width (RBC) [Ratio]15.1 %Critically high 11.0-15.0Doctors HospitalComment on above:Performed By: #### CBC #### [facility] [address] [place] [address] Dr. Cary MalagonHematocrit (Bld) [Volume fraction]35.8 %Critically low42.0-54.0 The [facility]awas HospitalComment on above:Performed By: #### CBC #### [facility] [address] [place] [address] Dr. Cary MalagonHemoglobin (Bld) [Mass/Vol]12.4 g/dLCritically low14.0-18.0The [facility]as HospitalComment on above:Performed By: #### CBC #### [facility] [address] [place] [address] Dr. Cary Nunez #0.04 10e3/ulCritically high0.00-0.03The [facility] Comment on above:Performed By: #### CBC #### [facility] [address] [place] [address] Dr. Cary Nunez %0.4 %Normal0.0-0.5The [facility]awas HospitalComment on above: Performed By: #### CBC #### [facility] [address] [place] [address] Dr. Cary Coreas #0.9 103/ulCritically low1.2-3.8The [facility] Comment on above:Performed By: #### CBC #### [facility] [address] [place] [address] Dr. Cary Tranmphocytes/100 WBC (Bld)10.3 %Critically low20.5-60.0The [facility]as HospitalComment on above:Performed By: #### CBC #### [facility] [address] [place] [address] Dr. Cary Morton DIFF REQNONormalThe [facility]awas HospitalComment on above: Performed By: #### CBC #### [facility] [address] [place] [address] Dr. Cary Wall (RBC) [Entitic mass]31.4 tsAurbxi40.9-34.0The [facility]as HospitalComment on above:Performed By: #### CBC #### [facility] [address] [place] [address] Dr. Cary Wall (RBC) [Mass/Vol]34.6 g/xXGuwalu98.9-35.2The [facility]as HospitalComment on above:Performed By: #### CBC #### [facility] [address] [place] [address] Dr. Cary Wall (RBC) [Entitic vol]90.6 mCNgdgyu20.0-94.0The [facility]as HospitalComment on above:Performed By: #### CBC #### [facility] [address] [place] [address] Dr. Cary Guevara #1.1 103/ulCritically high0.3-0.8ThJoint [facility] District Memorial [facility] Comment on above:Performed By: #### CBC #### [facility] [address] [place] [address] Dr. Cary Gayocytes/100 WBC (Bld)11.9 %Normal1.7-12.0[facility] Comment on above:Performed By: #### CBC #### [facility] [address] [place] [address] Dr. Cary Mattson #6.8 103/ulCritically high1.4-6.5[facility] Comment on above:Performed By: #### CBC #### [facility] [address] [place] [address] Dr. Cary MalagonNeutrophils/100 WBC (Bld)76.2 %Critically high43.0-75.0The [facility]as HospitalComment on above:Performed By: #### CBC #### [facility] [address] [place] [address] Dr. Cayr MalagonPlatelet mean volume (Bld) [Entitic vol]9.2 fLCritically low 9.5-13.5The [facility]as HospitalComment on above:Performed By: #### CBC #### [facility] [address] [place] [address] Dr. Cary MalagonPLT256 103/uaPflhuy563-684Unu [facility] HospitalComment on above: Performed By: #### CBC #### [facility] [address] [place] [address] Dr. Cary MalagonRBC3.95 106/ulCritically low4.70-6.10The [facility]as HospitalComment on above:Performed By: #### CBC #### [facility] [address] [place] [address] Dr. Cary MalagonWBC8.9 103/ulNormal4.0-11.0The [facility] HospitalComment on above: Performed By: #### CBC #### [facility] [address] [place] [address] Dr. Cary Trujillo BLOODon 32-56-9998Uinyteyqwtc examination of blood, cultureCulture Observations: NO GROWTH AT 5 DAYS.NormalThe [facility]as HospitalComment on above:Performed By: #### CBC #### [facility] [address] [place] [address] Dr. Cary MalagonCovid-19 PCR (CVDTB)on 22-38-9653PNAF-CoV-2 (COVID-19) RNA JOSE+probe Ql (Unsp spec)Not detectedNormalNOT DETECTEDThe [facility] Comment on above:Result Comment: When diagnostic testing is negative, the possibility of a false negative should be considered in the context of a patient's recent exposures and the presence of clinical signs and symptoms consistent with SARS-CoV-2. This test is not yet approved or cleared by the [place] Food and Drug Administration (FDA). This test was developed by [employer], [place], [place]. The performance characteristics of this test were validated by [facility]. The results are not intended to be used as the sole means for clinical diagnosis or patient management decisions. The [facility] is authorized under Clinical Laboratory Improvement Amendments (CLIA) to perform high- complexity testing.Performed By: #### CVDTBH #### [facility] [address] [place] [address] Dr. Cary LudwigDIMERon 54-87-9812O-DIMER1.43 mg/L FEUCritically high0.19-0.50 The [facility] HospitalComment on above:Performed By: #### CMP #### [facility] [address] [place] [address] Dr. Cary LudwigDIMER COMMENTSSEE BELOWMount St. Mary Hospital on above:Result Comment: Increases in D-Dimer concentration observed with thromboembolic events [...] stress, and generalized hospitalization. Performed By: #### CMP #### [facility] [address] [place] [address] Dr. Cary MalagonPROF 14(COMP METB)on 61-95-2504Gxbxedx [Mass/Vol]3.6 g/dLNormal 3.5-5.0The [facility] Hamiltonment on above:Performed By: #### CMP #### [facility] [address] [place] [address] Dr. Cary MalagonAlbumin/Globulin [Mass ratio]1.0 {ratio}NormalThe [facility] on above:Performed By: #### CMP #### [facility] [address] [place] [address] Dr. Cary MalagonALP [Catalytic activity/Vol]46 U/TEdhxcx06-787Zsg [facility] HospitalComment on above:Performed By: #### CMP #### [facility] [address] [place] [address] Dr. Cary StarkT [Catalytic activity/Vol]42 U/JHwcbjj83-46Ryz [facility] HospitalComment on above:Performed By: #### CMP #### [facility] [address] [place] [address] [address] Cary Hubbardon gap [Moles/Vol]12.7 mmol/LNormalDoctors Hospital Comment on above:Performed By: #### CMP #### [facility] [address] [place] [address] Dr. Cary MalagonAST [Catalytic activity/Vol]24 U/BYdlqth04-78Fma [facility] HospitalComment on above:Performed By: #### CMP #### [facility] [address] [place] [address] Dr. Cary MalagonBilirubin [Mass/Vol]0.4 mg/dLNormal0.2-1.3TSelect [facility] Comment on above:Performed By: #### CMP #### [facility] [address] [place] [address] Dr. Cary MalagonCalcium [Mass/Vol]8.7 mg/dLNormal8.4-10.2[facility] Comment on above:Performed By: #### CMP #### [facility] [address] [place] [address] Dr. Cary MalagonChloride [Moles/Vol]100 mmol/YBanhyn73-867DiwDoctors Hospital Comment on above:Performed By: #### CMP #### [facility] [address] [place] [address] Dr. Cary MalagonCO2 [Moles/Vol]27.0 mmol/YUeskab62.0-30.0[facility] Comment on above:Performed By: #### CMP #### [facility] [address] [place] [address] Dr. Cary MalagonCreatinine [Mass/Vol]1.18 mg/dLNormal0.66-1.25The [facility] HospitalComment on above:Performed By: #### CMP #### [facility] [address] [place] [address] [address] Cary CravenGFR-AF HUNGARIAN>60Normal>=60The [facility] HospitalComment on above:Performed By: #### CMP #### [facility] [address] [place] [address] [address] Cary CravenGFR-NON AF HUNGARIAN>60Normal>=60The [facility] HospitalComment on above:Performed By: #### CMP #### [facility] [address] [place] [address] [address] Cary MalagonGlobulin (S) [Mass/Vol]3.6 g/dLNormalThe [facility] HospitalComment on above:Performed By: #### CMP #### [facility] [address] [place] [address] Dr. Cary MalagonGlucose [Mass/Vol]189 mg/dLCritically emrz42-531Lvm [facility] HospitalComment on above:Performed By: #### CMP #### [facility] [address] [place] [address] [address] Cary MalagonPotassium [Moles/Vol]3.7 mmol/LNormal3.4-5.0[facility] Comment on above:Performed By: #### CMP #### [facility] [address] [place] [address] [address] Cary MalagonProtein [Mass/Vol]7.2 g/dLNormal6.1-8.2The [facility] Comment on above:Performed By: #### CMP #### [facility] [address] [place] [address] [address] Cary MalagonSodium [Moles/Vol]136 mmol/LCritically mie751-580Xbz [facility] Hamiltonment on above:Performed By: #### CMP #### [facility] [address] [place] [address] [address] Cary MalagonUrea nitrogen [Mass/Vol]25.0 mg/dLCritically high9.0-20.0The [facility] HospitalComment on above:Performed By: #### CMP #### [facility] [address] [place], [place] [address] Dr. Cary MalagonUrea nitrogen/Creatinine [Mass ratio]21.2 mg/mgMount St. [facility] Hospital on above:Performed By: #### CMP #### [facility] [address] [place], [place] [address] Dr. Cary MalagonXR CHEST 1 Von [id number] CHEST 1 VEXAM: XR CHEST 1 V HISTORY: The patient is a 65-year-old male with 2 day history of cough. COMPARISON: 10/13/2020. FINDINGS: The lungs are underinflated but clear with no confluent airspace infiltrates, pleural effusions, or pneumothoraces. The cardiac silhouette is at the upper limit of normal. The trachea is midline. IMPRESSION: No acute cardiopulmonary abnormalities. Electronically authenticated by: MACO QUICK Date: 2021-06-23 20:43[facility].OFFVISAlliqua 06-06-2021.[facility] [address] [place] [address] Office Visit Report Signed Patient Name: Tom Khan 0 Date of : 1955 Age/Sex: 65 / M Date of Service: Location: [facility] Behavioral Health Outpt Attending physician: Apolinar CHEN [...] By: 06/06/21 1455 Cosigned By (if applicable): [id number] cc:[facility] [address] [place] [id number] Office Visit Report Signed Patient Name: Tom Khan 0 Date of : 1955 Age/Sex: 65 / M Date of Service: Location: [facility] Behavioral Health Outpt Attending physician: Karen Sotelo PROFESSOR OF SOCIOLOGY Intake Vital Signs 06/06/21 12:07 Height 5 [...] History (Updated 04/06/21 @ 09:39 by Shai Frafan MD) Hx of CABG Hx of total [...] to learn that he was scheduled for oxxk-fs-odnp appointments with this provider, and then also his therapist. Upon arrival to the office today patient and were informed that they are only allowed 1 appointment per day, due to insurance. Patient and were distressed to learn this, and did speak with our office helper clerical today regarding this policy. Patient did see [...] at this time. Patient continues working at [employer] part-time, approximately 21 hours/week, which is three [...] saw Dr. Farfan last, (more content not included)...NormalHawthorn Children'S Psychiatric HospitalCOMPREHENSIVE METABOLIC PANELon 35-15-7104Lqrvwiv [Mass/Vol]4.5 g/dL Normal3.6-5.1Quest DiagnosticsComment on above:Performed By: #### 496, 28929, 7600 #### [facility] [place] [address] [employer] Specialist: Ck Wallis MDAlbumin/Globulin [Mass ratio]1.7 {ratio}Normal 1.0-2.5Quest DiagnosticsComment on above:Performed By: #### 496, 14346, 7600 #### [facility] [place] [address] [employer]ist: Ck Wallis MDALP [Catalytic activity/Vol]41 U/IGiktoe05-093 [facility] DiagnosticsComment on above:Performed By: #### 496, 15042, 7600 #### [facility] [place] [address] [employer]ist: kC Wallis MDALT [Catalytic activity/Vol]37 U/LNormal9-46 [facility] DiagnosticsComment on above:Performed By: #### 496, 60403, 7600 #### [facility] [place] [address] [employer]ist: Ck Wallis MDAST [Catalytic activity/Vol]20 U/GFmdnrb89-78 [facility] DiagnosticsComment on above:Performed By: #### 496, 58084, 7600 #### [facility] [place] [address] [employer]ist: Ck Wallis MDBilirubin [Mass/Vol]0.5 mg/dLNormal0.2-1.2 [facility] DiagnosticsComment on above:Performed By: #### 496, 00378, 7600 #### [facility] [place] [address] [employer]ist: Ck Wallis MDBUN/CREATININE RATIONOT APPLICABLENormal6-22 Quest DiagnosticsComment on above:Performed By: #### 496, 47957, 7600 #### [facility] [address], [address] [place] [address] [employer] Specialist: Ck Wallis MDCalcium [Mass/Vol]9.6 mg/dLNormal8.6-10.3Quest DiagnosticsComment on above:Performed By: #### 496, 42186, 7600 #### [facility] [address], [address] [place] [address] [employer] Specialist: Ck Wallis MDChloride [Moles/Vol]100 mmol/GOoslyu49-206 Quest DiagnosticsComment on above:Performed By: #### 496, 44965, 7600 #### [facility] [address], [address] [place] [address] [employer]ist: Ck Wallis MDCO2 [Moles/Vol]31 mmol/KGmzwtt68-88Diapn DiagnosticsComment on above:Performed By: #### 496, 79491, 0 #### [facility] [address], [address] [place] [address] [employer]ist: Ck Wallis MDCreatinine [Mass/Vol]1.07 mg/dLNormal0.70-1.25 Quest DiagnosticsComment on above:Result Comment: For patients >49 years of age, the reference limit for Creatinine is approximately 13% higher for people identified as -Guyanese.Performed By: #### 496, 06862, 0 #### [facility] [address], [address] [place] [address] [employer] Specialist: Ck Wallis MDeGFR NON-AFR. RDYPCPPL79 mL/min/1.52k5Qkixhf> OR = 60Quest DiagnosticsComment on above:Performed By: #### 496, 37373, 7600 #### [facility] [place] [address] [employer]ist: Ck Wallis MDGFR/1.73 sq M.predicted among blacks MDRD (S/P/Bld) [Vol rate/Area]85 mL/min/{1.73_m2}Normal> OR = 60[facility] Comment on above:Performed By: #### 496, 02695, 7600 #### [facility] [place] [address] [employer] Specialist: Ck Wallis MDGlobulin (S) [Mass/Vol]2.6 g/dLNormal1.9-3.7 [facility] DiagnosticsComment on above:Performed By: #### 496, 19830, 7600 #### [facility] [place] [address] [employer]ist: Ck Wallis MDGlucose [Mass/Vol]139 mg/lBRtzl50-66Nxpjt DiagnosticsComment on above:Result Comment: Fasting reference interval For someone without known diabetes, a glucose value >125 mg/dL indicates that they may have diabetes and this should be confirmed with a follow-up test.Performed By: #### 496, 11496, 7600 #### [facility] [address], [address] [place] [address] [employer] Specialist: Ck Wallis MDPotassium [Moles/Vol]4.2 mmol/LNormal3.5-5.3 Quest DiagnosticsComment on above:Performed By: #### 496, 35684, 7600 #### [facility] [place] [address] [employer] Specialist: Ck Wallis MDProtein [Mass/Vol]7.1 g/dLNormal6.1-8.1Quest DiagnosticsComment on above:Performed By: #### 496, 96849, 7600 #### [facility] [place] [address] [employer] Specialist: Ck Wallis MDSodium [Moles/Vol]138 mmol/AMmoogl321-026Mcszt DiagnosticsComment on above:Performed By: #### 496, 44425, 7600 #### [facility] [place] [address] [employer] Specialist: Ck Wallis MDUrea nitrogen [Mass/Vol]22 mg/dLNormal7-25 Quest DiagnosticsComment on above:Performed By: #### 496, 12769, 7600 #### [facility] [address], [address] [place] [address] [employer] Specialist: Ck Wallis MDHEMOGLOBIN A1con 07-65-1514NAVLKALPAT A1c6.9 % of total HgbHigh<5.7Quest DiagnosticsComment on above:Result Comment: For someone without known diabetes, a [...] hemoglobin A1c for diagnosis of diabetes for children.Performed By: #### 496, 26863, 7600 #### [facility] [address], [address] [place] [address] [employer] Specialist: Ck Wallis MDLIPID PANEL, STANDARDon 69-60-4263Gantpebpxrb [Mass/Vol]239 mg/dLHigh<200Quest DiagnosticsComment on above:Order Comment: FASTING:YES FASTING: YESPerformed By: #### 496, 7600, 59854 #### [facility] [address], [address] [place] [address] [employer] Specialist: Ck Wallis MDCholesterol in HDL [Mass/Vol]45 mg/dLNormal> OR = 40Quest DiagnosticsComment on above:Order Comment: FASTING:YES FASTING: YESPerformed By: #### 496, 7600, 12745 #### [facility] [address], [address] [place] [address] [employer]ist: Ck Wallis MDCholesterol in LDL [Mass/Vol]148 mg/dLHigh Quest DiagnosticsComment on above:Order Comment: FASTING:YES FASTING: YESResult Comment: Reference range: <100 Desirable range <100 mg/dL for primary prevention; <70 mg/dL for patients with CHD or diabetic patients with > or = 2 CHD risk factors. LDL-C is now calculated using the Kimo calculation, which is a validated novel method providing better accuracy than the Friedewald equation in the estimation of LDL-C. Nathan SS et al. KETTY. 2013;310(19): 4379-1673 (http://education.[employer]se[employer]/faq/FHR585)Performed By: #### 496, 7600, 43560 #### [facility] [address], [address] [place] [address] [employer] Specialist: Ck Ricosterosully.total/Cholesterol in HDL [Mass ratio]5.3 {ratio}High<5.0Quest DiagnosticsComment on above:Order Comment: FASTING:YES FASTING: YESPerformed By: #### 496, 7600, 22496 #### [facility] [address], [address] [place] [address] [employer] Specialist: Ck MILLER HDL RIHPVFMJYOT785 mg/dL (calc)High<130 Quest DiagnosticsComment on above:Order Comment: FASTING:YES FASTING: YESResult Comment: For patients with diabetes plus 1 major ASCVD risk factor, treating to a non-HDL-C goal of <100 mg/dL (LDL-C of <70 mg/dL) is considered a therapeutic option.Performed By: #### 496, 7600, 25645 #### [facility] [address], [address] [place] [address] [employer] Specialist: Ck Wallis MDTriglyceride [Mass/Vol]280 mg/dLHigh<150Quest DiagnosticsComment on above:Order Comment: FASTING:YES FASTING: YESResult Comment: If a non-fasting specimen was collected, consider repeat triglyceride testing on a fasting specimen if clinically indicated. Trever landin al. J. of Clin. Lipidol. 2015;9:129-169.Performed By: #### 496, 7600, 52378 #### [facility] [address], [address] [place] [address] Precision Farming Specialist: Ck Wallis MDCovid-19 PCR ([facility]VDJEW[facility])on [id number]-CoV-2 (COVID-19) RNA JOSE+probe Ql (Unsp spec)Not detectedNormalNOT DETECTEDThe Tuscarawas HospitalComment on above:Result Comment: This test is not yet approved or cleared by the [place] FDA. When there are no FDA-approved or cleared tests available, and other criteria are met, FDA can make tests available under an emergency access mechanism called an Emergency Use Authorization (EUA). The EUA for this test is supported by the [place] of Health and Human Service's (HHS's) declaration [...] of clinical signs and symptoms consistent with SARS-CoV-2.Performed By: #### CBC #### [facility] [address] [place] [address] Dr. Cary Medina HARVEY DOP LEG RTon [id number] HARVEY DOP LEG RTEXAMINATION: US HARVEY DOP LEG RT HISTORY: Chronic [...] Electronically authenticated by: IAN FU Date: 2021-04-08 10:22[facility]Con [id number] Hospital Name: TOM KHAN : 1955 Unit: [id number] Age: 65 Attending Physician: JASMINE CONNOLLY [facility]- Pt Location: [facility] Date of Service: PROGRESS NOTE DATE [...] purpose. 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 Tom is scheduled with Dr. Shai Farfan [...] to have any concerns (more content not included)...[facility] HospitalPN-PSYCon [id number]-PSKindred Hospital [facility] Name: TOM KHAN : 1955 Unit: [id number] Age: 65 Attending Physician: JASMINE CONNOLLY [facility]- Pt Location: [facility] Date of Service: PROGRESS NOTE DATE [...] background check gets back for part-time at [employer] and he may be starting that next [...] because she is coming with Tom to [facility] next Sunday when he is here [...] FARFAN M.D. Date Dict: 12/16/[address] [facility] Date trans: 12/16/20 0943 BANNER [phone] cc:[facility] HospitalPSYCwyatt [id number] Hospital Name: TOM KHAN : 1955 Unit: [id number] Age: 65 Attending Physician: JASMINE CONNOLLY [facility] Pt Location: [facility] Date of Service: PROGRESS NOTE DATE [...] of his medications as currently prescribed to [facility] in [place] for a 30- day supply but I [...] between. Electronically Signed by: JASMINE CONNOLLY MSN, INTERACTIVE MEDIA SPECIALIST, PMNS- 12/16/20 0932 (more content not included)...[facility] HospitalPN-PSYCon [id number]-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 [...] continued. He is agree (more content not included)...Normal [facility] HospitalPSYCOH [facility] [id number] [facility] Name: TOM KHAN : 1955 Unit: [id number] Age: 65 Attending Physician: JASMINE CONNOLLY [facility] Pt Location: [facility] Date of Service: HISTORY DATE OF SERVICE: 12/01/2020 PRESENT ILLNESS: Mr. Tom Khan is a 65-year-old male whom was referred to the [facility] as he was presenting with significant symptomology and non-response to medications so it was determined that he would likely do better in a situation where he could be monitored more closely in regards to medication response as well as treatment potential and response to therapy. Mr. Khan has been in outpatient psychiatric services with [facility] for medication management and therapy services for about the past 3 months. He was originally in partial hospitalization after he was discharged from inpatient hospitalization with [facility] Unit from 07/19/2020 to 07/22/2020. [...] was under the treatment of Aissatou Payne [facility]. At that time, Aissatou had admitted him [...] his admission in July to inpatient at [facility] he was admitted from [facility] just post-discharge from there. The diagnosis being used while he was inpatient at [facility] was major depressive disorder, recurrent, with [...] anybody else he osei (more content not included)...[facility] HospitalPN-PSYCon [id number] Hospital Name: TOM KHAN : 1955 Unit: [id number] Age: 64 Attending Physician: KAREN SOTELO C.N.P., Pt Location: [facility] Date of Service: PROGRESS NOTE DATE: [...] on to state that he did not fern picker the 150 mg because it was [...] SOTELO C.N.P. 09/07/20 1055 (more content not included)...[facility] HospitalPN-PSYCon [id number]-PSKindred Hospital [facility] Name: TOM KHAN : 1955 Unit: [id number] Age: 64 Attending Physician: KAREN SOTELO C.N.P. Pt Location: [facility] Date of Service: PROGRESS NOTE DATE [...] week he is paying for the program [id number]. He has a conjoint scheduled with his this afternoon and he is hoping to discharge from the program later this week. At this point Tom is still not sure who he is going to follow up with. He has been under the care of Dr. Maldonado in the [place], [place] area but he is interested in finding a new provider. We have discussed the option of following up here or finding a psychiatric provider closer to his home in [place]. OBJECTIVE: Tom is oriented times three today [...] or with a psychiatric provider in the [place], [place] area. Today refills were sent for the Lamictal 150 mg due to the dose change but no other refill is needed today. Electronically Signed by: KAREN SOTELO C.N.P. 08/19/20 1334 KAREN SOTELO C.N.P. Date Dict: 08/17/20 1043 KAREN SOTELO C.N.P. Date trans: 08/17/20 1152 [facility] [phone] cc:[facility] HospitalGILLESPSYCwyatt [id number] Hospital Dayton Name: TOM KHAN : 1955 Unit: [id number] Age: 64 Attending Physician: KAREN SOTELO C.N.P., Pt Location: [facility] Date of Service: PROGRESS NOTE DATE [...] current treating psychiatrist, Dr. Maldonado, in the [facility]. Tom is not sure if he wants [...] a refill for BuSpar, Lamictal, and Viibryd. [facility] [place] (more content not included)...[facility] PSYCOH Willi [id number] Hospital [facility] Name: TOM KHAN: 1955 Unit: [id number] Age: 64 Attending Physician: JASMINE CONNOLLY [facility]- Pt Location: [facility] Date of Service: HISTORY DATE OF SERVICE: 08/02/2020 DATE OF EVALUATION: 08/03/2020 TOTAL TIME SPENT WITH PATIENT: 80 minutes. CHIEF COMPLAINT: I just want to get back to work to my old job, but I can't. PRESENT ILLNESS: Mr. Khan is a 64-year-old male being seen today for his initial evaluation for the intensive out-patient program in [facility]. He has recently been in-patient in our [facility] geriatric unit with an admission date of 07/19/2020 and discharge date of 07/22/2020. Tom reports his insisted that he come in for help because she does not feel he is where he needs to be. Prior to coming to the [facility] geriatric program he was actually at [facility] for twelve days. 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 Tom denies any previous diagnosis of post [...] focus but he do (more content not included)...[facility] HospitalXR Knee AP and Lateral and Merchantson [id number]: Status post right total knee arthroplasty without evidence of complication. Interior Decorator: ISADORA Transcribe Date/Time: May 20 2020 2:07P Dictated by : CAPRI CASTANEDA MD This examination was interpreted and the report reviewed and electronically signed by: CAPRI CASTANEDA MD on May 20 2020 2:08PM EST DIVISION OF RADIOLOGY* * *Final Report* * * DATE OF [...] Left knee arthroplasty appears unchanged. DIVISION OF RADIOLOGYProvider, [facility] [place] - 05/20/2020 * * *Final Report* * [...] total knee arthroplasty without evidence of complication. Interior Decorator: ISADORA Transcribe Date/Time: May 20 2020 2:07P Dictated by : CAPRI CASTANEDA MD This examination was interpreted and the report reviewed and electronically signed by: CAPRI CASTANEDA MD on May 20 2020 2:08PM EST [facility] HospitalRadiology Study observation (narrative)[facility] HospitalXR Knee AP and Lateral and MerchantsOrdered By: Ccf Provider on [id number] ClinicCBC with Diffon [id number]. Basophil0.00 k/uLNormal0.0-0.2[facility] Health MiamisburgComment on above:Performed By: #### CDP, CMPX, FT4, LIPR, TSH #### [facility] [address] [place] [address] Child Care Associate Teacher: Artem Swann MD #### GLYHGB #### [place] [address] Child Care Associate Teacher: Abhishek Metz.Neutrophil (Seg)4.30 k/uLNormal1.3-9.1Mer[facility] Health MiamisburgComment on above:Performed By: #### CDP, CMPX, FT4, LIPR, TSH #### [facility] [address] [place] [address] Child Care Associate Teacher: Artem Swann MD #### GLYHGB #### [place] [address] Child Care Associate Teacher: Irina Mccullough MDBasophils/100 WBC (Bld)0 %Normal0-2[facility] MiamisburgComment on above:Performed By: #### CDP, CMPX, FT4, LIPR, TSH #### [facility] [address] [place] [address] Child Care Associate Teacher: Artem Swann MD #### GLYHGB #### [address] [address] Child Care Associate Teacher: Irina Mccullough MDEosinophils #/vol (Bld)0.00 10*3/uLNormal0.0-0.4 [facility] HospitalComment on above:Performed By: #### CDP, CMPX, FT4, LIPR, TSH #### [facility] [address] [place] [address] Child Care Associate Teacher: Artem Swann MD #### GLYHGB #### [address] [address] Child Care Associate Teacher: Irina Mccullough MDEosinophils/100 WBC (Bld)0 %Normal0-4[facility] City HospitalComhenry ford hospital on above:Performed By: #### CDP, CMPX, FT4, LIPR, TSH #### [facility] [address] [place] [address] Child Care Associate Teacher: Artem Swann MD #### GLYHGB #### [address] [address] Child Care Associate Teacher: Irina Mccullough MDErythrocyte distribution width Ratio (RBC)14.3 % Rnqmqz80.5-14.9[facility] City HospitalComhenry ford hospital on above:Performed By: #### CDP, CMPX, FT4, LIPR, TSH #### [facility] [address] [place] [address] Child Care Associate Teacher: Artem Swann MD #### GLYHGB #### [address] [address] Child Care Associate Teacher: Irina Mccullough MDHematocrit Volume Fraction (Bld)40.3 %Cal68-21 [facility] on above:Performed By: #### CDP, CMPX, FT4, LIPR, TSH #### [facility] [address] [place] [address] Child Care Associate Teacher: Artem Swann MD #### GLYHGB #### [address] [address] Child Care Associate Teacher: Irina Mccullough MDHemoglobin mass conc (Bld)13.4 g/dLLow13.5-17.5 [facility] on above:Performed By: #### CDP, CMPX, FT4, LIPR, TSH #### [facility] [address] [place] [address] Child Care Associate Teacher: Artem Swann MD #### GLYHGB #### [address] [address] Child Care Associate Teacher: Irina Mccullough MDLymphocytes #/vol (Bld)0.50 10*3/uLLow1.0-4.8 [facility] on above:Performed By: #### CDP, CMPX, FT4, LIPR, TSH #### [facility] [address] [place] [address] Child Care Associate Teacher: Artem Swann MD #### GLYHGB #### [address] [address] Child Care Associate Teacher: Irina Mccullough MDLymphocytes/100 WBC (Bld)9 %Hbl60-56RvheqZanesville City HospitalComhenry ford hospital on above:Performed By: #### CDP, CMPX, FT4, LIPR, TSH #### [facility] [place] [address] Child Care Associate Teacher: Artem Swann MD #### GLYHGB #### [address] [address] Child Care Associate Teacher: RADHA MetzCH Entitic mass (RBC)30.7 gsPbcaxm87-95VorahFayette County Memorial Hospital on above:Performed By: #### CDP, CMPX, FT4, LIPR, TSH #### [facility] [address] [place] [address] Child Care Associate Teacher: Artem Swann MD #### GLYHGB #### [address] [address] Child Care Associate Teacher: RADHA MetzCHC mass conc (RBC)33.3 g/bYRhtdlg83-99VtcrgZanesville City HospitalComhenry ford hospital on above:Performed By: #### CDP, CMPX, FT4, LIPR, TSH #### [facility] [address] [place] [address] Child Care Associate Teacher: Artem Swann MD #### GLYHGB #### [address] [address] Child Care Associate Teacher: RADHA MetzCV Entitic volume (RBC)92.1 sPXfnyuh72-761JpvfmZanesville City HospitalComment on above:Performed By: #### CDP, CMPX, FT4, LIPR, TSH #### [address] [address] Child Care Associate Teacher: Artem Swann MD #### GLYHGB #### [address] [address] Child Care Associate Teacher: RADHA Metzonocytes #/vol (Bld)0.40 10*3/uLNormal0.1-1.3 [facility] HospitalComhenry ford hospital on above:Performed By: #### CDP, CMPX, FT4, LIPR, TSH #### [facility] [place] [address] Child Care Associate Teacher: Artem Swann MD #### GLYHGB #### [address] [address] Child Care Associate Teacher: RADHA Metzonocytes/100 WBC (Bld)8 %High1-7Z[facility] City HospitalComhenry ford hospital on above:Performed By: #### CDP, CMPX, FT4, LIPR, TSH #### [facility] [address] [place] [address], [place] [address] Child Care Associate Teacher: Artem Swann MD #### GLYHGB #### [address] [place] [address] Child Care Associate Teacher: Ellis Metz (Seg)83 %Xgfb06-52RbpxzFayette County Memorial Hospital on above:Performed By: #### CDP, CMPX, FT4, LIPR, TSH #### [facility] [address] [place] [address] Child Care Associate Teacher: Artem Swann MD #### GLYHGB #### [address] [address] Child Care Associate Teacher: Russell Metz mean volume Entitic volume (Bld)6.5 fL Normal6.0-12.0[facility] on above:Performed By: #### CDP, CMPX, FT4, LIPR, TSH #### [facility] [address] [place] [address] Child Care Associate Teacher: Artem Swann MD #### GLYHGB #### [address] [address] Child Care Associate Teacher: Britney Metz #/vol (Bld)284 10*3/cDAaydnc109-413 [facility] on above:Performed By: #### CDP, CMPX, FT4, LIPR, TSH #### [facility] [address] [place] [address] Child Care Associate Teacher: Artem Swann MD #### GLYHGB #### [address] [address] Child Care Associate Teacher: YOVANNY Metz #/vol (Bld)4.38 10*6/uLLow4.5-5.9[facility] on above:Performed By: #### CDP, CMPX, FT4, LIPR, TSH #### [facility] [address] [place] [address] Child Care Associate Teacher: Artem Swann MD #### GLYHGB #### [address] [address] Child Care Associate Teacher: JUSTO Metz #/vol (Bld)5.3 10*3/uLNormal3.5-11.0[facility] on above:Performed By: #### CDP, CMPX, FT4, LIPR, TSH #### [facility] [address] [place] [address] Child Care Associate Teacher: Artem Swann MD #### GLYHGB #### [address] [address] Child Care Associate Teacher: Abhishek Metz.Imm.GranulocyteNOT REPORTEDNormal0.00-0.30 [facility] on above:Performed By: #### CDP, CMPX, FT4, LIPR, TSH #### [facility] [address] [place] [address] Child Care Associate Teacher: Artem Swann MD #### GLYHGB #### [address] [address] Child Care Associate Teacher: Jeremy Metz Diff PerformedNOT REPORTEDNormalFayette County Memorial Hospital on above:Performed By: #### CDP, CMPX, FT4, LIPR, TSH #### [facility] [address] [place] [address] Child Care Associate Teacher: Artem Swann MD #### GLYHGB #### [address] [address] Child Care Associate Teacher: Kev Metzture granulocytes #/vol (Bld)NOT REPORTED Gqayit[address]Hcmjb[address] [place], [place] [address]Comment on above:Performed By: #### CDP, CMPX, FT4, LIPR, TSH #### [facility] [address] [place] [address] Child Care Associate Teacher: Artem Swann MD #### GLYHGB #### [address] [address] Child Care Associate Teacher: FERMIN Metz AutomatedNOT REPORTEDNormMercy Health West HospitalComment on above:Performed By: #### CDP, CMPX, FT4, LIPR, TSH #### [facility] [address] [place] [address] Child Care Associate Teacher: Artme Swann MD #### GLYHGB #### [address] [address] Child Care Associate Teacher: Britney Metz #/vol (Bld)NOT REPORTEDNoKettering Health PrebleComment on above:Performed By: #### CDP, CMPX, FT4, LIPR, TSH #### [facility] [place] [address] Child Care Associate Teacher: Artem Swann MD #### GLYHGB #### [address] [address] Child Care Associate Teacher: YOVANNY Metz morphology finding Nom (Bld)NOT REPORTED [facility] Main CampusComhenry ford hospital on above:Performed By: #### CDP, CMPX, FT4, LIPR, TSH #### [facility] [address] [place] [address] Child Care Associate Teacher: Artem Swann MD #### GLYHGB #### [address] [address] Child Care Associate Teacher: Irina Mccullough MDWBC MorphologyNOT REPORTEDNormalZanesville City HospitalComhenry ford hospital on above:Performed By: #### CDP, CMPX, FT4, LIPR, TSH #### [facility] [address] [place] [address] Child Care Associate Teacher: Artem Swann MD #### GLYHGB #### [address] [address] Child Care Associate Teacher: Franky Metz Metabolic Pr/rfx MGon 11-09-2018(cont.) [facility] on above:Result Comment: Average GFR for 60-69 years old: 85 mL/min/1.73sq m Chronic Kidney Disease: <60 mL/min/1.73sq m Kidney failure: <15 mL/min/1.73sq m eGFR calculated using average adult body mass. Additional eGFR calculator available at: http://www.Otto Clave.Key[employer] Kitchens/multiple_crcl_2012.htmPerformed By: #### CDP, CMPX, FT4, LIPR, TSH #### [facility] [address] [place] [address] Child Care Associate Teacher: Artem Swann MD #### GLYHGB #### [address] [address] Child Care Associate Teacher: Uzma Metzbumin mass conc3.7 g/dLNormal3.5-5.2[facility] on above:Performed By: #### CDP, CMPX, FT4, LIPR, TSH #### [facility] [address] [place] [address] Child Care Associate Teacher: Artem Swann MD #### GLYHGB #### [address] [place] [address] Child Care Associate Teacher: Derek Metzline Phos60 U/GMeydrg24-135IquvtFayette County Memorial Hospital on above:Performed By: #### CDP, CMPX, FT4, LIPR, TSH #### [facility] [address] [place] [address] Child Care Associate Teacher: Artem Swann MD #### GLYHGB #### [address] [address] Child Care Associate Teacher: Irina Mccullough MDALT enzyme act/vol29 U/LNormal5-41[facility] on above:Performed By: #### CDP, CMPX, FT4, LIPR, TSH #### [facility] [address] [place] [address] Child Care Associate Teacher: Artem Swann MD #### GLYHGB #### [address] [address] Child Care Associate Teacher: Noa Metz gap molar conc8 mmol/LLow9-17[facility] on above:Performed By: #### CDP, CMPX, FT4, LIPR, TSH #### [facility] [address] [place] [address] Child Care Associate Teacher: Artem Swann MD #### GLYHGB #### [address] [address] Child Care Associate Teacher: Irina Mccullough MDAST enzyme act/vol30 U/LNormal<40[facility] on above:Performed By: #### CDP, CMPX, FT4, LIPR, TSH #### [facility] [address] [place] [address] Child Care Associate Teacher: Artem Swann MD #### GLYHGB #### [address] [address] Child Care Associate Teacher: Irina Mccullough MDBilirubin Ql (U)0.44 mg/dLNormal0.3-1.2MAvita Health SystemComhenry ford hospital on above:Performed By: #### CDP, CMPX, FT4, LIPR, TSH #### [facility] [address] [place] [address] Child Care Associate Teacher: Artem Swann MD #### GLYHGB #### [address] [address] Child Care Associate Teacher: ARLEN Metzalcium mass conc8.9 mg/dLNormal8.6-10.4[facility] City HospitalComment on above:Performed By: #### CDP, CMPX, FT4, LIPR, TSH #### [facility] [address] [place] [address] Child Care Associate Teacher: Artem Swann MD #### GLYHGB #### [address] [address] Child Care Associate Teacher: ARLEN Metzhloride molar wxtl802 mmol/BYrvrqk33-474ZpnkwZanesville City HospitalComhenry ford hospital on above:Performed By: #### CDP, CMPX, FT4, LIPR, TSH #### [facility] [address] [place] [address] Child Care Associate Teacher: Artem Swann MD #### GLYHGB #### [address] [address] Child Care Associate Teacher: ARLEN MetzO2 molar conc28 mmol/BSezhlh33-04OditnZanesville City HospitalComhenry ford hospital on above:Performed By: #### CDP, CMPX, FT4, LIPR, TSH #### [facility] [address] [place] [address] Child Care Associate Teacher: Artem Swann MD #### GLYHGB #### [address] [address] Child Care Associate Teacher: ARLEN Metzreatinine mass conc0.92 mg/dLNormal0.70-1.20 [facility] HospitalComhenry ford hospital on above:Performed By: #### CDP, CMPX, FT4, LIPR, TSH #### [facility] [address] [place] [address] Child Care Associate Teacher: Artem Swann MD #### GLYHGB #### [address] [address] Child Care Associate Teacher: Irina Mccullough MDGFR, Amer>60Normal>60Z[facility] City HospitalComhenry ford hospital on above:Performed By: #### CDP, CMPX, FT4, LIPR, TSH #### [facility] [address] [place] [address] Child Care Associate Teacher: Artem Swann MD #### GLYHGB #### [address] [address] Child Care Associate Teacher: Irina Mccullough MDGFR,non Amer>60Normal>60[facility] City HospitalComhenry ford hospital on above:Performed By: #### CDP, CMPX, FT4, LIPR, TSH #### [facility] [address] [place] [address] Child Care Associate Teacher: Artem Swann MD #### GLYHGB #### [address] [address] Child Care Associate Teacher: Irina Mccullough MDGlucose mass sqis023 mg/xSCnap11-69WzbeyFisher-Titus Medical Center on above:Performed By: #### CDP, CMPX, FT4, LIPR, TSH #### [facility] [address] [place] [address] Child Care Associate Teacher: Artem Swann MD #### GLYHGB #### [address] [address] Child Care Associate Teacher: FAZAL Metzotassium molar conc4.5 mmol/LNormal3.7-5.3MAvita Health SystemComhenry ford hospital on above:Performed By: #### CDP, CMPX, FT4, LIPR, TSH #### [facility] [address] [place] [address] Child Care Associate Teacher: Artem Swann MD #### GLYHGB #### [address] [address] Child Care Associate Teacher: FAZAL Metzrotein mass conc6.8 g/dLNormal6.4-8.3MAvita Health SystemComhenry ford hospital on above:Performed By: #### CDP, CMPX, FT4, LIPR, TSH #### [facility] [address] [place] [address] Child Care Associate Teacher: Artem Swann MD #### GLYHGB #### [address] [address] Child Care Associate Teacher: CACHORRO Metzodium molar kpne834 mmol/PIaiaqu006-688HybtbZanesville City HospitalComhenry ford hospital on above:Performed By: #### CDP, CMPX, FT4, LIPR, TSH #### [facility] [address] [place] [address] Child Care Associate Teacher: Artem Swann MD #### GLYHGB #### [address] [address] Child Care Associate Teacher: Irina Mccullough MDUrea nitrogen mass conc17 mg/dLNormal8-23Z[facility] HospitalComhenry ford hospital on above:Performed By: #### CDP, CMPX, FT4, LIPR, TSH #### [facility] [address] [place] [address] Child Care Associate Teacher: Artem Swann MD #### GLYHGB #### [address] [address] Child Care Associate Teacher: Irina Mccullough MDAlbumin/Globulin mass ratioNOT REPORTEDNormal 1.0-2.5Z[facility] City HospitalComment on above:Performed By: #### CDP, CMPX, FT4, LIPR, TSH #### [facility] [place] [address] Child Care Associate Teacher: Artem Swann MD #### GLYHGB #### [address] [address] Child Care Associate Teacher: Irina Mccullough MDBUN/CRE RatioNOT REPORTEDNormal9-20Zanesville City HospitalComment on above:Performed By: #### CDP, CMPX, FT4, LIPR, TSH #### [facility] [address] [place] [address] Child Care Associate Teacher: Artem Swann MD #### GLYHGB #### [address] [address] Child Care Associate Teacher: CACHORRO Metztaging:NOT REPORTEDNormalZanesville City HospitalComment on above:Performed By: #### CDP, CMPX, FT4, LIPR, TSH #### [facility] [address] [place] [address] Child Care Associate Teacher: Artem Swann MD #### GLYHGB #### [address] [address] Child Care Associate Teacher: Irina Mccullough MDHemoglobin A1Con 96-99-2531Nwkvkscsuu A1c/Hemoglobin.total mass fraction (Bld)6.5 %High4.0-6.0Zanesville City HospitalComment on above:Performed By: #### CDP, CMPX, FT4, LIPR, TSH #### [facility] [address] [place] [address] Child Care Associate Teacher: Artem Swann MD #### GLYHGB #### [address] [id number] Child Care Associate Teacher: Irina Mccullough MDHemoglobin A1c/Hemoglobin.total mass fraction (Bld)140 mg/dLNormalZanesville City HospitalComhenry ford hospital on above:Result Comment: The ADA and AACC recommend providing the estimated average glucose result to permit better patient understanding of their HBA1c result.Performed By: #### CDP, CMPX, FT4, LIPR, TSH #### [facility] [address] [place] [address] Child Care Associate Teacher: Artem Swann MD #### GLYHGB #### [address] [id number] Child Care Associate Teacher: Irina Mccullough MDLipid Profileon 71-14-6559Hagovehhdft in HDL mass conc48 mg/dLNormal>40Zanesville City HospitalComment on above:Result Comment: HDL Guidelines: <40 Undesirable 40-59 Borderline >59 DesirablePerformed By: #### CDP, CMPX, FT4, LIPR, TSH #### [facility] [address] [place] [address] Child Care Associate Teacher: Artem Swann MD #### GLYHGB #### [address] [address] Child Care Associate Teacher: ARLEN Metzholesterol in LDL mass fkmg608 mg/dLNormal0-130 [facility] HospitalComhenry ford hospital on above:Result Comment: LDL Guidelines: <100 Desirable 100-129 Near to/above Desirable 130-159 Borderline >159 Undesirable Direct (measured) LDL and calculated LDL are not interchangeable tests.Performed By: #### CDP, CMPX, FT4, LIPR, TSH #### [facility] [address] [place] [address] Child Care Associate Teacher: Artem Swann MD #### GLYHGB #### [facility] [employer] [address] [place] [address] Child Care Associate Teacher: ARLEN Metzholesterol mass ppgg660 mg/dLNormal<200[facility]burgComhenry [facility]d hospital on above:Result Comment: Cholesterol Guidelines: <200 Desirable 200-240 Borderline >240 UndesirablePerformed By: #### CDP, CMPX, FT4, LIPR, TSH #### [facility] [address] [place] [address] Child Care Associate Teacher: Artem Swann MD #### GLYHGB #### [facility] [employer] [address] [place] [address] Child Care Associate Teacher: Bassem Metz.total/Cholesterol in HDL mass ratio 3.7 {ratio}Normal<5[facility] Health MiamisburgComment on above:Performed By: #### CDP, CMPX, FT4, LIPR, TSH #### [facility] [address] [place] [address] Child Care Associate Teacher: Artem Swann MD #### GLYHGB #### [address] [address] Child Care Associate Teacher: Irina Mccullough MDTriglyceride mass adfd518 mg/dLNormal<150[facility]burgComhenry ford hospital on above:Result Comment: Triglyceride Guidelines: <150 Desirable 150-199 Borderline 200-499 High >499 Very high Based on AHA Guidelines for fasting triglyceride, June 2012.Performed By: #### CDP, CMPX, FT4, LIPR, TSH #### [facility] [address] [place] [address] Child Care Associate Teacher: Artem Swann MD #### GLYHGB #### [address] [address] Child Care Associate Teacher: Irina Madoff, MDCholesterol in VLDL mass concNOT REPORTEDNormal 1-30MerPomerene HospitalComment on above:Performed By: #### CDP, CMPX, FT4, LIPR, TSH #### [facility] [address] [place] [address] Child Care Associate Teacher: Artem Swann MD #### GLYHGB #### [address] [address] Child Care Associate Teacher: Irina Mccullough MDThyroid Stim. Horm.on 35-98-7834Yjjtmgtzxrw Qn 1.13 m[IU]/LNormal0.30-5.00Zanesville City HospitalComment on above:Performed By: #### CDP, CMPX, FT4, LIPR, TSH #### [facility] [address] [place] [address] Child Care Associate Teacher: Artem Swann MD #### GLYHGB #### [address] [address] Child Care Associate Teacher: Irina Mccullough MDThyroxine, Freeon 97-05-0630Eaxrbjpdz, Free1.29 ng/dLNormal0.93-1.70Zanesville City HospitalComment on above:Performed By: #### CDP, CMPX, FT4, LIPR, TSH #### [facility] [place] [address] Child Care Associate Teacher: Artem Swann MD #### GLYHGB #### [address] [address] Child Care Associate Teacher: CACHORRO Metztreptococcus Group A Culture-Pharyngeal Swabon 40-97-7443Vgashnmgkvkpv Group A Culture-Pharyngeal SwabNegativeNormalNEGATIVE [facility] HospitalComment on above:Result Comment: A positive result indicates the specimen is presumptively positive for Group A BetaStrep by bacitracin method.Performed By: #### FLU A/B MOLECUL ####[address] [place] [address] Amylaseon 71-71-1829Aycdcri23 U/CBzmrzd91 - 110[facility] on above: Performed By: #### FLU A/B MOLECUL ####[address] [place] [address] Basic Metabolic Panelon 78-97-7248oZHO (non-black)107.69NoOhioHealth Doctors HospitalComhenry ford hospital on above:Performed By: #### BMP ####[address] [place] [address] eGFR (non-black)70.21NoOhioHealth Doctors HospitalComhenry ford hospital on above:Result Comment: eGFR Interpretation:Normal: Equal to or greater than 60 mL/min/1.73 meters squaredChronic Kidney Disease: Less than 60 mL/min/1.73 meters squaredKidney Failure: Less than 15 mL/min/1.73 meters squaredPerformed By: #### BMP ####[address] [place] [address] eGFR (non-black)87.6NoOhioHealth Doctors HospitalComhenry ford hospital on above:Result Comment: eGFR Interpretation:Normal: Equal to or greater than 60 mL/min/1.73 meters squaredChronic Kidney Disease: Less than 60 mL/min/1.73 meters squaredKidney Failure: Less than 15 mL/min/1.73 meters squaredPerformed By: #### BMP ####[address] [place] [address] eGFR (non-black)93.16NoGe[facility] on above:Result Comment: eGFR Interpretation:Normal: Equal to or greater than 60 mL/min/1.73 meters squaredChronic Kidney Disease: Less than 60 mL/min/1.73 meters squaredKidney Failure: Less than 15 mL/min/1.73 meters squaredPerformed By: #### BMP ####[address] [place] [address] eGFR (non-black)100.97NormalTrihealth Mccullough-Hyde Memorial HospitalComment on above:Performed By: #### BMP ####[address] [place] [address] eGFR (non-black)80.94NormalTrihealth Mccullough-Hyde Memorial HospitalComment on above:Performed By: #### BMP ####[address] [place] [address] Nom55 year(s) NormalTrihealth Mccullough-Hyde Memorial HospitalComment on above:Performed By: #### BMP ####[address] [place] [phone] mg/dLNormal8.4 - 10.2WKettering Health Washington TownshipComment on above:Performed By: #### BMP ####[address] [place] [address] Tzmorjnb166 mmol/JDsycai52 - 107[facility] Memorial HospitalComment on above:Performed By: #### BMP ####[address] [place] [address] CQ127 mmol/L Quawsz14 - 32[facility] Memorial HospitalComment on above:Performed By: #### BMP ####[address] [place] [phone] mg/dLNormal0.66 - 1.25WKettering Health Washington TownshipComment on above:Performed By: #### BMP ####[address] [place] [address] Glucose mass wosm695 mg/pQNcvh98 - 100 [facility] Memorial HospitalComment on above:Performed By: #### BMP ####[address] [place] [address] Potassium molar conc4.4 mmol/LNormal3.6 - 5.0Tri[facility]-Hy[facility] Memorial HospitalComment on above:Performed By: #### BMP ####[address] [place] [address] Fllvqx512 mmol/CDkljuq579 - 145WKettering Health Washington TownshipComment on above:Performed By: #### BMP ####[address] [place] [address] Urea cxlxkqea84 mg/dLNormal9 - 20WKettering Health Washington TownshipComment on above:Performed By: #### BMP ####[address] [place] [address] CBC W Auto Differentialon 70-85-7959Vge Neut #6.2 10 X 3/mm Normal1.8 - 7.7WKettering Health Washington TownshipComhenry ford hospital on above:Performed By: #### CBC Auto Diff ####[address] [place], [place] [address] Basophils/100 WBC Auto (Bld)0 %Normal0 - 1WKettering Health Washington TownshipComment on above:Performed By: #### CBC Auto Diff ####[address] [place] [address] Rrhkmzbfeaj2.0 10 X 3/mmNormal0.0 - 0.5WKettering Health Washington TownshipComment on above:Performed By: #### CBC Auto Diff ####[address] [place] [address] Eosinophils/100 leukocytes1 %Normal0 - 5WKettering Health Washington TownshipComment on above:Performed By: #### CBC Auto Diff ####[address] [place] [address] Erythrocyte distribution width Auto Ratio (RBC)14.6 %High11.5 - 14.5Tri[facility] Mccull[facility]-Hyde Memorial HospitalComment on above:Performed By: #### CBC Auto Diff ####[address] [place] [address] Erythrocytes (RBC)4.68 10 X 6/mmLow4.70 - 6.10WKettering Health Washington TownshipComment on above:Performed By: #### CBC Auto Diff ####[address] [place] [address] Hematocrit (HCT)42.2 %Normal 42.0 - 52.0WKettering Health Washington TownshipComment on above:Performed By: #### CBC Auto Diff ####[address] [place], [place] [address] Hemoglobin mass conc (Bld)14.5 g/fQCfisoc48.0 - 16.0WKettering Health Washington TownshipComment on above:Performed By: #### CBC Auto Diff ####[address] [place] [address] Lymphocytes1.8 10 X 3/mmNormal1.0 - 4.0WKettering Health Washington TownshipComment on above:Performed By: #### CBC Auto Diff ####[address] [place] [address] Lymphocytes/100 lcorltyrgx02 % Qrahlf50 - 40WKettering Health Washington TownshipComment on above:Performed By: #### CBC Auto Diff ####[address] [place] [address] MBH79.9 bnGatfpg62.0 - 35.0WKettering Health Washington TownshipComment on above:Performed By: #### CBC Auto Diff ####[address] [place] [address] MCHC mass conc (RBC)34.3 g/dL Jpcsod88.0 - 36.0WKettering Health Washington TownshipComment on above:Performed By: #### CBC Auto Diff ####[address] [place] [address] FVU15.2 jNYmfleo37.0 - 100.0WKettering Health Washington TownshipComment on above:Performed By: #### CBC Auto Diff ####[address] [place] [address] Monocytes/100 leukocytes9 % Normal1 - 15WKettering Health Washington TownshipComment on above:Performed By: #### CBC Auto Diff ####[address] [place] [address] Neutrophils/100 WBC Auto (Bld)70 %High50 - 70WKettering Health Washington TownshipComment on above:Performed By: #### CBC Auto Diff ####[address] [place] [address] Platelet mean volume (PMV)8.1 fLNormal7.5 - 11.5WKettering Health Washington TownshipComment on above: Performed By: #### CBC Auto Diff ####[address] [place] [address] Rbexfurwu403 sNn89Hcqmis743 - 450WKettering Health Washington TownshipComment on above:Performed By: #### CBC Auto Diff ####[address] [place] [address] WBC (Leukocytes)8.9 10 X 3/mmNormal3.7 - 11.0Tri[facility]-Hyde Memorial HospitalComment on above:Performed By: #### CBC Auto Diff ####[address] [place] [address] ct RENAL STONEon [id number] RENAL STONEEXAM: CT RENAL STONE CLINICAL STATEMENT: Right flank pain and nausea. COMPARISON: None. TECHNIQUE: CT examination of the abdomen and pelvis without IV contrast. Coronal and sagittal reformations wereperformed. Dose reduction techniques were achieved by using automated exposure control and/or adjustment of mA and/or kV according to patient size and/or use of iterative reconstruction technique.LUNG BASES FINDINGS: No nodule, infiltrate, or effusion in noted. There is a calcified granuloma in theleft lower lobe.ABDOMINAL FINDINGS: There are gallstones without [...] No bladder calculus.No pelvic free fluid. No bowelherniation into the inguinal regions.IMPRESSION:1. No urolithiasis. No hydronephrosis.2. Gallstoneswithout evidence for cholecystitis or biliary obstruction.3. No other acute findings are identifiedto account for flank pain and nausea.4. Normal appendix.5. Prostatomegaly.Report electronically signed by: Dr. Kamron Alonso NormalTrihealth Mccullough-Hyde Memorial HospitalHepatic Function Panelon [id number] aminotransferase (ALT)35 U/LNormal8 - 72Tri[facility] Memorial HospitalComment on above:Performed By: #### FLU A/B MOLECUL ####[address] [place] [address] Jxpwqcr3.6 g/dLNormal3.5 - 5.0 [facility] HospitalComment on above:Performed By: #### FLU A/B MOLECUL ####[address] [place] [address] Alkaline phosphatase (ALP)45 U/NXdmmse71 - 126WKettering Health Washington TownshipComment on above:Performed By: #### FLU A/B MOLECUL ####[address] [place] [address] Aspartate aminotransferase (AST)25 U/IYzibto40 - 59[facility] Comment on above:Performed By: #### FLU A/B MOLECUL ####[address] [place] [address] Bilirubin (direct)0.0 mg/dLNormal0.0 - 0.2WKettering Health Washington TownshipComment on above: Performed By: #### FLU A/B MOLECUL ####[address] [place] [address] Bilirubin (total)0.5 mg/dLNormal0.2 - 1.3WKettering Health Washington TownshipComment on above:Performed By: #### FLU A/B MOLECUL ####[address] [place] [address] Tywmzks6.5 g/dLNormal6.3 - 8.2[facility] Memorial HospitalComment on above:Performed By: #### FLU A/B MOLECUL ####[address] [place] [address] Infectious Monoon 07-18-2017 Infectious MonoNegativeNormalNEGATIVETrihealth Mccullough-Hyde Memorial HospitalComment on above: Performed By: #### MONO TEST ####[address] [place] [address] Internal ControlACCEPTABLENormalTrihealth Mccullough-Hyde Memorial HospitalComment on above:Performed By: #### MONO TEST ####[address] [place] [address] Lipaseon 85-28-0306Rwlrnz065 U/FTmcemc36 - 300WKettering Health Washington TownshipComment on above: Performed By: #### FLU A/B MOLECUL ####[address] [place] [address] Lipid Panelon 92-32-2857SXH/Cholesterol Ratio3.3 RatioNormal1.0 - 4.5Tri[facility]-Hy[facility] Memorial HospitalComment on above:Performed By: #### LIPID PANEL ####[address] [place] [address] LDL Avqjyssxbql53 mg/iJVvyldy14 - 100[facility] Memorial HospitalComment on above:Result Comment: If the triglyceride value is >400 mg/dL, the calculated LDL value is not accurate.Performed By: #### LIPID PANEL ####[address] [place] [place], [place] [address] Dqayqktxhwo013 mg/xHQeedtg029 - 200[facility] Comment on above:Result Comment: <200 mg/dL is recommended cholesterol level. Performed By: #### LIPID PANEL ####[address] [place] [address] HDL Qmltghyrhhh85 mg/dLNormalTrihealth Mccullough-Hyde Memorial HospitalComment on above:Result Comment: Normal HDL ranges:Males: >40 mg/dLFemales: >60 mg/dLPerformed By: #### LIPID PANEL ####[address] [place] [address] Bwmkpcdkodvm862 mg/wJOubz18 - 150[facility] on above:Result Comment: <150 mg/dL is recommended triglyceride level.Performed By: #### LIPID PANEL ####[address] [place] [place] [address] TMG-Dfcrijlx 89-46-7394UFX-Screen1.07 ng/mLNormal0.00 - 4.[address] [facility] on above:Result Comment: [facility] UTILIZES [employer] PSA METHODOLOGY. DIFFERENT TEST METHODS CANNOT BE USED INTERCHANGEABLY. PSA RESULTS IN A GIVEN PATIENT SAMPLE DETERMINED WITH DIFFERENT TESTS AND FROM DIFFERENT MANUFACTURERS CAN VARY DUE TO DIFFERENCES IN TEST METHODS AND REAGENTS.Performed By: #### FLU A/B MOLECUL ####[address] [place] [address] TSHon [id number] stimulating hormone (TSH)1.050 mIU/mLNormal0.470 - 4.680[facility] on above:Performed By: #### FLU A/B MOLECUL ####[address] [place] [address] Troponin I, Extra Sensitiveon 50-28-0289Llb at Specimen Collection=NormalMercy Health St. [facility] Hospital on above:Performed By: #### TROPONIN I ####[address] [place] [address] Performed By: #### FLU A/B MOLECUL ####[address] [place] [address] Performed By: #### LIPID PANEL ####[address] [place] [address] Troponin I.cardiac mass concng/mLNormal0.000 - 0.034[facility] on above:Result Comment: Limit of Detection: <0.012 ng/mLAt Risk of Myocardial Damage: 0.012-0.034 ng/mLProbable Myocardial Damage: >0.034 ng/mLPerformed By: #### FLU A/B MOLECUL ####[address] [place], [place] [phone] I.cardiac mass concng/mLNormal0.000 - 0.034WKettering Health Washington TownshipComment on above:Result Comment: Limit of Detection: <0.012 ng/mLAt Risk of Myocardial Damage: 0.012-0.034 ng/mLProbable Myocardial Damage: >0.034 ng/mLPerformed By: #### TROPONIN I ####[address] [place], [place] [phone] I.cardiac mass concng/mLNormal0.000 - 0.034[facility] HospitalComment on above:Result Comment: Limit of Detection: <0.012 ng/mLAt Risk of Myocardial Damage: 0.012-0.034 ng/mLProbable Myocardial Damage: >0.034 ng/mLPerformed By: #### TROPONIN I ####[address] [address] XR CHEST PA OR AP (1 VIEW)on [id number] CHEST PA OR AP (1 VIEW)SINGLE AP CHESTCLINICAL HISTORY: Hypertension and vertigo. COMPARISON: [...] abnormality. Report electronically signed by: Dr. Efra AllisonTrihealth Mccullough-Hyde Memorial HospitalGroup A Strepon [id number] strep testNegativeNormal NEGATIVETrihealth Mccullough-Hyde Memorial HospitalComment on above:Performed By: #### RAPID STREP SCR ####[address] [place] [phone] ControlACCEPTOhioHealth [facility]erington [facility] Comment on above:Performed By: #### RAPID STREP SCR ####[address] [place] [address] RAPID FLUon [id number] ControlACCEPTOhioHealth Pickerington Methodist HospitalComment on above:Performed By: #### FLU A/B MOLECUL ####[address] [place] [address] Flu ANegativeNormalNEGATIVE [facility]Hy[facility] Memorial HospitalComment on above:Performed By: #### FLU A/B MOLECUL ####[address] [place] [address] Flu BNegativeNormalNEGATIVETrihealth Mccullough-Hyde Memorial HospitalComment on above:Result Comment: A positive result indicates the presence of Influenza A/B antigen. A negative result should be interpreted as presumptively negative for the presence of Influenza A/B antigen.Performed By: #### FLU A/B MOLECUL ####[address] [place] [address] Age at Specimen Collection=[facility] Comment on above:Performed By: #### FLU A/B MOLECUL ####[address] [place] [address] Performed By: #### MONO TEST ####[address] [place] [address] Performed By: #### BMP ####[address] [place] [address] Performed By: #### CBC Auto Diff ####[address] [place], [place] [address] Performed By: #### UA w reflex C&S ####[address] [place] [address] Performed By: #### RAPID STREP SCR ####[address] [place] [address] Performed By: #### TROPONIN I ####[address] [place] [address] UA w reflex C&Son [id number], bacteria in sediment1+AbnormalTrihealth Mccullough-Hyde Memorial HospitalComment on above:Performed By: #### UA w reflex C&S ####[address] [place] [address] Urine, crystals in sedimentNONE [facility] TroyComment on above: Performed By: #### UA w reflex C&S ####[address] [place] [address] Erythrocytes (RBC)0-4/HPFNormalNONE SEEN [facility] HospitalComhenry ford hospital on above:Performed By: #### UA w reflex C&S ####[address] [place] [address] WBC (Leukocytes)0-4/HPFNormalNONE [facility] - TrumbullComment on above:Performed By: #### UA w reflex C&S ####[address] [place] [address] Urine, casts in sedimentNONE [facility] SystemE [facility] - TrumbullComment on above: Performed By: #### UA w reflex C&S ####[address] [place] [address] Urine, epithelial cells in sediment NegativeNormalNEGATIVETrihealth Mccullough-Hyde Memorial HospitalComment on above:Performed By: #### UA w reflex C&S ####[address] [place] [address] Urine, mucus presence in sedimentNegativeNormal NEGATIVETrihealth Mccullough-Hyde Memorial HospitalComment on above:Performed By: #### UA w reflex C&S ####[address] [place] [address] Reflex Culture?URINE CULTURE REFLEXEDNoOhioHealth Doctors HospitalComhenry ford hospital on above:Performed By: #### UA w reflex C&S ####[address] [place] [address] Urine, leukocyte esterase presenceNegativeNormalNEGThe University of Toledo Medical CenterComment on above:Performed By: #### UA w reflex C&S ####[address] [place] [address] Urine, nitrite presenceNegative NormalNEGThe University of Toledo Medical CenterComment on above:Performed By: #### UA w reflex C&S ####[address] [place] [address] Urobilinogen, Dipstick0.1Yqgqty2.2 - 1.0[facility] HospitalComhenry ford hospital on above:Performed By: #### UA w reflex C&S ####[address] [place] [address] Protein, Qual NegativeNormalNEGThe University of Toledo Medical CenterComhenry ford hospital on above:Performed By: #### UA w reflex C&S ####[address] [place] [address] Urine, pH6.0 [pH]Normal5.0 - 9.0[facility]-Hyde Memorial HospitalComment on above:Performed By: #### UA w reflex C&S ####[address] [place] [address] Blood, Dipstick TRACEAbnormalNEGATIVETrihealth Mccullough-Hyde Memorial HospitalComment on above:Performed By: #### UA w reflex C&S ####[address] [place] [address] Urine, specific gravity<1.955Ztkytwhp6.005 - 1.030WKettering Health Washington TownshipComment on above:Performed By: #### UA w reflex C&S ####[address] [place] [address] Bilirubin (direct)NegativeNormalNEGThe University of Toledo Medical CenterComment on above:Performed By: #### UA w reflex C&S ####[address] [place] [address] Glucose mass concNegativeNormalNEGATIVETrihealth Mccullough-Hyde Memorial HospitalComment on above:Performed By: #### UA w reflex C&S ####[address] [place] [address] Ketone, DipstickNegativeNormalNEGATIVETrihealth Mccullough-Hyde Memorial HospitalComment on above:Performed By: #### UA w reflex C&S ####[address] [place] [address] Urine, characterCLEARNormalCLEARWKettering Health Washington TownshipComment on above:Performed By: #### UA w reflex C&S ####[address] [place] [address] [facility] Comment on above:Performed By: #### UA w reflex C&S ####[facility] [place] [address] Vital Signs Date TimeVital SignValuePerforming LybewxzkdEltvdegp77-03-2524 10:20-0400Body ribztq012.8 cmAlionel Castillo TECHNOLOGY APPLICATIONS TEACHER-PROFESSOR OF SOCIOLOGY Work Phone: [facility] [employer] Political Student [id number] 10:20-0400Body mass index (BMI) [Ratio]38.31 kg/g4BnyevuLeeann Castillo TECHNOLOGY APPLICATIONS TEACHER-PROFESSOR OF SOCIOLOGY Work Phone: [facility] VignoSpzeqz23-84-7917 10:20-0400Body qrhwqnmbegt26.9 [degF]Leeann Castillo TECHNOLOGY APPLICATIONS TEACHER-PROFESSOR OF SOCIOLOGY Work Phone: [facility] HospitalLilaKutu10-17-2025 10:20-0400Body .11 kgLeeann Castillo TECHNOLOGY APPLICATIONS TEACHER-PROFESSOR OF SOCIOLOGY Work Phone: [facility] HospitalYottaa Hmztel98-14-6466 10:20-0400Diastolic blood vocbvypm43 mm[Hg]Leeann Castillo TECHNOLOGY APPLICATIONS TEACHER-PROFESSOR OF SOCIOLOGY Work Phone: [facility] HospitalYottaa Ulcbpa58-87-5031 10:20-0400Heart rate 76 /minLeeann Castillo TECHNOLOGY APPLICATIONS TEACHER-PROFESSOR OF SOCIOLOGY Work Phone: [facility] HospitalLilaKutu10-17-2025 10:20-4833PsK1% (BldA) [Mass fraction]97 %Leeann Castillo TECHNOLOGY APPLICATIONS TEACHER-PROFESSOR OF SOCIOLOGY Work Phone: [facility] HospitalLilaKutu10-17-2025 10:20-0400Systolic blood hvdihnie015 mm[Hg]Leeann Castillo TECHNOLOGY APPLICATIONS TEACHER-PROFESSOR OF SOCIOLOGY Work Phone: [facility] HospitalYottaa Qowrhc72-89-1113 11:18-0400Body .8 Alysa Steen MD Work Phone: [facility] Boelds39-07-5079 11:18-0400Body mass index (BMI) [Ratio]37.45 kg/t6WifzoBobbi Steen MD Work Phone: [facility]10-09-2025 11:18-0400Body llwoep592.39 kgBobbi Steen MD Work Phone: [facility]10-08-2025 10:45-0400Body utvima458.3 cmAntcodi Chatman DPM Work Phone: [facility] HospitalGieqbvcdet31-71-0885 10:45-0400Body mass index (BMI) [Ratio]34.87 kg/e9Pjxkxkk Rus DPM Work Phone: [facility] HospitalYyntjgdsuk74-96-6708 10:45-0400Body ivmgia310.4 kgAnthangela Rus DPM Work Phone: [facility] HospitalWqlaubfmey19-54-7870 14:16-0400Diastolic blood rhzyuanh03 mm[Hg]Rodrigue Jj MD Work Phone: [facility]09-11-2025 14:16-0400Systolic blood uwmtnqtc667 mm[Hg]Rodrigue Jj MD Work Phone: [facility]09-11-2025 13:51-0400Heart rate81 /min Rodrigue Jj MD Work Phone: [facility]07-30-2025 13:54-0400Diastolic blood yvnwqfyf72 mm[Hg][address]07-30-2025 13:54-0400Systolic blood zzfsotcy427 mm[Hg]Bph [address] [place], [place] 1537607-30-2025 13:51-0400Body height [address] [place], [place] 1537607-30-2025 13:51-0400Body mass index (BMI) [Ratio]36.54 kg/m2Bp[address]07-30-2025 13:51-0400Body .2 [degF][address]07-30-2025 13:51-0400Body mmsfjo634.[address] [place], [place] 1537607-30-2025 13:51-0400Heart rate82 /min [address]07-30-2025 13:51-0400Respiratory rate18 /minBph 1 [facility]07-30-2025 13:51-7949NfH6% (BldA) [Mass fraction]98 %Bph [address] [place], [place] 1537607-30-2025 10:49-0400Body cxrapm905.3 cmAnthokaiser Rusher DPM Work Phone: [facility] HospitalLhjxghcyxj82-65-5309 10:49-0400Body mass index (BMI) [Ratio]34.87 kg/t7Cdslauq Rusher DPM Work Phone: [facility] HospitalMwdxqtxpkg95-13-6187 10:49-0400Body lnolhx663.4 kgAnthony Rusher DPM Work Phone: [facility] HospitalWxopdogpxr75-63-1596 09:25-0400Body czytqa377.3 Dianne Kline TECHNOLOGY APPLICATIONS TEACHER-PROFESSOR OF SOCIOLOGY Work Phone: [facility]07-22-2025 09:25-0400Body mass index (BMI) [Ratio]35.84 kg/n6HotbsvujShanice Kline TECHNOLOGY APPLICATIONS TEACHER-PROFESSOR OF SOCIOLOGY Work Phone: [facility]07-22-2025 09:25-0400Body ngfuuh506.57 kgShanice Kline TECHNOLOGY APPLICATIONS TEACHER-PROFESSOR OF SOCIOLOGY Work Phone: [facility]07-17-2025 11:41-0400Body wluayd510.3 cmWidaveswapnil Mca DO Work Phone: [facility]07-17-2025 11:41-0400 Body mass index (BMI) [Ratio]35.29 kg/h5Vrlebaw Mac DO Work Phone: [facility]07-17-2025 11:41-0400 Body .76 kgWipolina Mac DO Work Phone: [facility]07-17-2025 11:41-0400 Diastolic blood bjzfcebz68 mm[Hg]Gita Watts DO Work Phone: [facility]07-17-2025 11:41-0400 Heart rate72 /minGita Watts DO Work Phone: [facility]07-17-2025 11:41-0400 Systolic blood ydgombvo352 mm[Hg]Gita Watts DO Work Phone: [facility]07-15-2025 16:27-0400 Body .3 cmAflorin Robledoher DPM Work Phone: [facility] HospitalHoihofcscn53-50-4489 16:27-0400Body mass index (BMI) [Ratio]34.87 kg/v8GmhdjfsMc Robledoher DPM Work Phone: [facility] HospitalMcjalbeagq85-67-2487 16:27-0400Body midmmp206.4 kgMc Robledoher DPM Work Phone: [facility] HospitalMvsxtvjlks50-58-0223 10:19-0400Body .3 Corazonmelindasteph Castillo TECHNOLOGY APPLICATIONS TEACHER-PROFESSOR OF SOCIOLOGY Work Phone: [facility]07-15-2025 10:19-0400Body mass index (BMI) [Ratio]35.84 kg/y3IzxvqzLeeann Castillo TECHNOLOGY APPLICATIONS TEACHER-PROFESSOR OF SOCIOLOGY Work Phone: [facility]07-15-2025 10:19-0400Body dfufdoqtjbl06.2 [degF]Leeann Castillo TECHNOLOGY APPLICATIONS TEACHER-PROFESSOR OF SOCIOLOGY Work Phone: [facility]07-15-2025 10:19-0400Body kkyhsp188.57 kgHumblesteph Castillo TECHNOLOGY APPLICATIONS TEACHER-PROFESSOR OF SOCIOLOGY Work Phone: [facility]07-15-2025 10:19-0400Diastolic blood ehdxqgay96 mm[Hg]Leeannsteph Castillo TECHNOLOGY APPLICATIONS TEACHER-PROFESSOR OF SOCIOLOGY Work Phone: [facility]07-15-2025 10:19-0400Heart rate 76 /minLeeann Castillo TECHNOLOGY APPLICATIONS TEACHER-PROFESSOR OF SOCIOLOGY Work Phone: [facility]07-15-2025 10:19-0131EtI2% (BldA) [Mass fraction]98 %Leeannsteph Castillo TECHNOLOGY APPLICATIONS TEACHER-PROFESSOR OF SOCIOLOGY Work Phone: [facility]07-15-2025 10:19-0400Systolic blood qgemytzv318 mm[Hg]Leeann Castillo APRN-PROFESSOR OF SOCIOLOGY Work Phone: [facility]07-09-2025 14:06-0400Body .3 cmPaige Paystrup SENIOR OFFICE SUPPORT ASSISTANT SOSA Work Phone: [facility] HospitalYcjpcvboxz21-13-1891 14:06-0400Body mass index (BMI) [Ratio]34.87 kg/d8Qxwck Paystrup SENIOR OFFICE SUPPORT ASSISTANT SOSA Work Phone: [facility] HospitalLhaidwwbtw94-14-9048 14:06-0400Body .4 kgPaige Paystrup SENIOR OFFICE SUPPORT ASSISTANT SOSA Work Phone: [facility] HospitalRrbsnddpfd83-65-9085 10:45-0400Body .3 cmAnthony Rusher DPM Work Phone: [phone]06-23-2025 10:45-0400Body mass index (BMI) [Ratio]35.29 kg/s5Krmaceo Rusher DPM Work Phone: [phone]06-23-2025 10:45-0400Body yamjul547.76 kgAnthony Rusher DPM Work Phone: 1(976)[address] [place], [place] 7345806-03-2025 11:03-0400Body caimqy679.3 cmAnthony Rusher DPM Work Phone: 1(508)[address] [place], [place] 7345806-03-2025 11:03-0400Body mass index (BMI) [Ratio]35.29 kg/s3Mlcyfrf Rusher DPM Work Phone: 1(593)969-[address] [place], [place] [address]Keuoyhyyht45-53-9029 11:03-0400Body rvzaxm409.76 kgAnthony Rusher DPM Work Phone: 1(012)142-[address] [place], [place] [address]Zbxruricdd36-12-9578 11:20-0400Body xuqnya450.3 Minnie Mckenzie MD Work Phone: [facility]05-14-2025 11:20-0400Body mass index (BMI) [Ratio]35.15 kg/a0NpzmohAlea Mckenzie MD Work Phone: 1(822)068-[address] [place] [address] [employer] Ucfgjl38-32-6289 11:20-0400Body cahtog412.31 kgAlea Mckenzie MD Work Phone: 1(127)413-[address] [place] [address] [employer] Stguth22-67-9246 11:20-0400Diastolic blood myueecuo33 mm[Hg]Alea Mckenzie MD Work Phone: 1(204)163-[address] [place] [address] [employer] Ouzgoc52-52-8713 11:20-0400Heart rate 68 /minAlea Mckenzie MD Work Phone: 1(860)996-[address] [place] [address] [employer] Ibjlce45-19-1487 11:20-0400Systolic blood siyzcfsl932 mm[Hg]Alea Mckenzie MD Work Phone: 1(887)240-[address] [place] [address] [employer] Caxcsp45-41-9671 15:46-0400Body rleuue584.3 Wilmasteph Castillo TECHNOLOGY APPLICATIONS TEACHER-PROFESSOR OF SOCIOLOGY Work Phone: [facility]a Qeftwj11-36-8518 15:46-0400Body mass index (BMI) [Ratio]35.43 kg/s1Cxtuti Castillo TECHNOLOGY APPLICATIONS TEACHER-PROFESSOR OF SOCIOLOGY Work Phone: [facility] Fvmypv97-80-8905 15:46-0400Body kedandkmlaz97.1 [degF]Leeann Castillo TECHNOLOGY APPLICATIONS TEACHER-PROFESSOR OF SOCIOLOGY Work Phone: [facility] Oclhtx31-52-7815 15:46-0400Body mqleuc360.21 kgHumblesteph Castillo TECHNOLOGY APPLICATIONS TEACHER-PROFESSOR OF SOCIOLOGY Work Phone: [facility] [employer] Qwiijr47-43-7903 15:46-0400Diastolic blood vujeeszs41 mm[Hg]Leeann Castillo TECHNOLOGY APPLICATIONS TEACHER-PROFESSOR OF SOCIOLOGY Work Phone: [facility] Cymxis08-94-8384 15:46-0400Heart rate 75 /minLeeann Castillo TECHNOLOGY APPLICATIONS TEACHER-PROFESSOR OF SOCIOLOGY Work Phone: [facility] Ivdogn12-97-3760 15:46-0628BoZ8% (BldA) [Mass fraction]97 %Leeann Castillo TECHNOLOGY APPLICATIONS TEACHER-PROFESSOR OF SOCIOLOGY Work Phone: [facility] Dqvvhz63-64-3340 15:46-0400Systolic blood bblkjnav056 mm[Hg]Leeann Castillo TECHNOLOGY APPLICATIONS TEACHER-PROFESSOR OF SOCIOLOGY Work Phone: [facility]04-15-2025 10:47-0400Body pukmbi463.34 [facility]-2025 10:47-0400Body mass index (BMI) [Ratio]35.8 kg/g4RvpijkkerPremier Health04-15-2025 10:47-0400Body gcfmoitbjrl39.5 [degF][facility]04-15-2025 10:47-0400Body enjcoh753.57 kgPrem[facility]04-15-2025 10:47-0400Diastolic blood dmylietj00 mm[Hg][facility] 12-16-2024 10:47-0400Heart rate72 /[facility] 12-16-2024 10:47-0400Respiratory rate14 /[facility] 12-16-2024 10:47-4785NgA4% (BldA) [Mass fraction]96 %[facility]04-15-2025 10:47-0400Systolic blood lzkbhkin109 mm[Hg][facility]04-09-2025 15:46-0400Body qezrjn438.3 cmNithin YOUNG Work Phone: [facility]04-09-2025 15:46-0400Body mass index (BMI) [Ratio]35.29 kg/y6IdqbhhktNithin Orozco PA Work Phone: [facility]04-09-2025 15:46-0400Body pqrjau397.76 kgNithin Orozco PA Work Phone: [facility]04-09-2025 15:46-0400Diastolic blood zmpbscje24 mm[Hg]Nithin Orozco PA Work Phone: [facility]04-09-2025 15:46-0400Heart rate 80 /minNithin Orozco PA Work Phone: [facility]04-09-2025 15:46-0400Systolic blood cowxifmr773 mm[Hg]Nithin Orozco PA Work Phone: [facility]04-01-2025 14:46-0400Body adhece790.3 cmAelcodi Chatman DPM Work Phone: [facility] HospitalGwcumumcxv41-87-3700 14:46-0400Body mass index (BMI) [Ratio]35.29 kg/z3Pzsvpftangela Chatman DPM Work Phone: [facility] HospitalTfhnwbgyut43-97-4909 14:46-0400Body svubui164.76 kgMc Chatman DPM Work Phone: [facility] HospitalDjovprqdfc61-24-4835 12:38-0400Body .3 cmTim Ibrahim MD Work Phone: [facility]03-19-2025 12:38-0400Body mass index (BMI) [Ratio]35.29 kg/u4HlbcxkeTim Ibrahim MD Work Phone: [facility]03-19-2025 12:38-0400Body gkqlti724.76 kgTim Ibrahim MD Work Phone: [facility]03-19-2025 12:38-0400Diastolic blood qxajalsn26 mm[Hg]Tim Ibrahim MD Work Phone: [facility]03-19-2025 12:38-0400Systolic blood ionyikav917 mm[Hg]Tim Ibrahim MD Work Phone: [facility]03-19-2025 11:28-0400Body adykef039.3 Nell Castillo TECHNOLOGY APPLICATIONS TEACHER-PROFESSOR OF SOCIOLOGY Work Phone: [facility]03-19-2025 11:28-0400Body mass index (BMI) [Ratio]35.84 kg/t4HcnwfjLeeann Castillo TECHNOLOGY APPLICATIONS TEACHER-PROFESSOR OF SOCIOLOGY Work Phone: [facility]03-19-2025 11:28-0400Body dpxxgleeecm69.39 [degF]Leeann Castillo TECHNOLOGY APPLICATIONS TEACHER-PROFESSOR OF SOCIOLOGY Work Phone: [facility] [employer] Onvsnf91-42-0924 11:28-0400Body adsqqz103.57 kgLeeann Castillo APRN-PROFESSOR OF SOCIOLOGY Work Phone: [facility]03-19-2025 11:28-0400Diastolic blood uxsnbget65 mm[Hg]Leeann Castillo APRN-PROFESSOR OF SOCIOLOGY Work Phone: [facility]03-19-2025 11:28-0400Heart rate 75 /minLeeann Castillo APRN-PROFESSOR OF SOCIOLOGY Work Phone: [facility]03-19-2025 11:286867YiY6% (BldA) [Mass fraction]98 %Leeann Castillo APRN-PROFESSOR OF SOCIOLOGY Work Phone: [facility]03-19-2025 11:28-0400Systolic blood mm[Hg]Leeann Castillo APRN-PROFESSOR OF SOCIOLOGY Work Phone: [facility]03-06-2025 13:53-0500Body kdeokz384.3 cmLindseyyeny LIGHT Work Phone: [facility]03-06-2025 13:53-0500Body mass index (BMI) [Ratio]37.38 kg/r7NvssiApolinar Mckenzie NADEGE Work Phone: [facility]03-06-2025 13:53-0500Body jonkal369.56 kgApolinar LIGHT Work Phone: [facility]02-19-2025 14:37-0500Body wzitui354.3 cmTim Ibrahim MD Work Phone: [facility] [employer] Syzbgg32-11-2681 14:37-0500Body mass index (BMI) [Ratio]37.38 kg/t0DtbjlwoTim Ibrahim MD Work Phone: [facility]02-19-2025 14:37-0500Body .56 kgTim Ibrahim MD Work Phone: [facility]02-19-2025 14:37-0500Diastolic blood mm[Hg]Tim Ibrahim MD Work Phone: [facility]02-19-2025 14:37-0500Systolic blood xlocjztd172 mm[Hg]Tim Ibrahim MD Work Phone: [facility]02-14-2025 11:37-0500Diastolic blood dipwkyob00 mm[Hg]Shobha Delong TECHNOLOGY APPLICATIONS TEACHER-PROFESSOR OF SOCIOLOGY Work Phone: 1([phone])408-[address] [place], [place] 1537602-14-2025 11:37-0500Systolic blood mm[Hg]Shobha Delong TECHNOLOGY APPLICATIONS TEACHER-PROFESSOR OF SOCIOLOGY Work Phone: [phone]02-14-2025 11:16-0500Body mass index (BMI) [Ratio]37.75 kg/d0RppuqnShobha Delong TECHNOLOGY APPLICATIONS TEACHER-PROFESSOR OF SOCIOLOGY Work Phone: 1(976)715-[address] [place], [place] 1537602-14-2025 11:16-0500Body qyppom733.34 kgShobha Delong TECHNOLOGY APPLICATIONS TEACHER-PROFESSOR OF SOCIOLOGY Work Phone: 1(682)789-[address] [place], [place] 1537602-14-2025 11:16-0500Heart rate 64 /minShobha Delong TECHNOLOGY APPLICATIONS TEACHER-PROFESSOR OF SOCIOLOGY Work Phone: 1(818)455-[address] [place], [place] 1537601-27-2025 11:42-0500Body ggjyir808.8 Nell Castillo TECHNOLOGY APPLICATIONS TEACHER-PROFESSOR OF SOCIOLOGY Work Phone: [facility]01-27-2025 11:42-0500Body mass index (BMI) [Ratio]38.31 kg/j8PzkuvhLeeann Castillo TECHNOLOGY APPLICATIONS TEACHER-PROFESSOR OF SOCIOLOGY Work Phone: [facility]01-27-2025 11:42-0500Body unzxmlmtskj04.5 [degF]Leeann Castillo TECHNOLOGY APPLICATIONS TEACHER-PROFESSOR OF SOCIOLOGY Work Phone: [facility]01-27-2025 11:42-0500Body .11 kgLeeann Castillo TECHNOLOGY APPLICATIONS TEACHER-PROFESSOR OF SOCIOLOGY Work Phone: [facility]01-27-2025 11:42-0500Diastolic blood qmfheosi42 mm[Hg]Leeann Castillo TECHNOLOGY APPLICATIONS TEACHER-PROFESSOR OF SOCIOLOGY Work Phone: [facility]01-27-2025 11:42-0500Heart rate 70 /minLeeann Castillo TECHNOLOGY APPLICATIONS TEACHER-PROFESSOR OF SOCIOLOGY Work Phone: [facility]01-27-2025 11:42-1307RiY8% (BldA) [Mass fraction]96 %Leeann Castillo TECHNOLOGY APPLICATIONS TEACHER-PROFESSOR OF SOCIOLOGY Work Phone: [facility]01-27-2025 11:42-0500Systolic blood jzetjbpi829 mm[Hg]Leeann Castillo TECHNOLOGY APPLICATIONS TEACHER-PROFESSOR OF SOCIOLOGY Work Phone: [facility]01-10-2025 09:30-0500Body qppanz582.3 cmMattja Kim PA Work Phone: [facility] HospitalBqjhhtokxf94-74-2046 09:30-0500Body mass index (BMI) [Ratio]35.29 kg/b5Mtlyara Kim PA Work Phone: [facility] HospitalOufjwhnsth46-84-7811 09:30-0500Body qjswep567.76 kgMattja Kim PA Work Phone: [facility] HospitalUefezhumva77-36-2322 14:42-0500Body mayeqm002.3 cmAflorin Venkather DPM Work Phone: [facility] HospitalQawuhyailc73-82-6412 14:42-0500Body mass index (BMI) [Ratio]32.78 kg/i8Cahoxpx Rusher DPM Work Phone: [facility] HospitalKolcatclcr16-87-8428 14:42-0500Body dvthru380.59 kgAnthony Rusher DPM Work Phone: [facility] HospitalUghmawocvq03-03-5038 12:25-0500Diastolic blood szirznqx72 mm[Hg]Pritesh Giles MD Work Phone: [facility]12-24-2024 12:25-7474ZlP7% (BldA) [Mass fraction]96 %Pritesh Giles MD Work Phone: [facility]12-24-2024 12:25-0500Systolic blood eexqnwgz313 mm[Hg]Pritesh Giles MD Work Phone: [facility]12-24-2024 10:44-0500Body bwbyshfltzf20.5 [degF]Pritesh Giles MD Work Phone: [facility]12-24-2024 10:44-0500Heart rate67 /Papa Giles MD Work Phone: [facility]12-24-2024 10:44-0500 Respiratory rate16 /Papa Giles MD Work Phone: [facility]12-09-2024 10:36-0500Body eihznl722.8 cmTim Ibrahim MD Work Phone: [facility]12-09-2024 10:36-0500Body mass index (BMI) [Ratio]33.43 kg/y6WfmkkkhTim Ibrahim MD Work Phone: [facility]12-09-2024 10:36-0500Body psxubx028.69 kgTim Ibrahim MD Work Phone: [facility]12-09-2024 10:36-0500Diastolic blood pehwtfdy41 mm[Hg]Tim Ibrahim MD Work Phone: [facility]12-09-2024 10:36-0500Systolic blood uotdjemi856 mm[Hg]Tim Ibrahim MD Work Phone: [facility]11-13-2024 11:30-0500Body nvyyka734.3 cmGita Watts DO Work Phone: [facility]11-13-2024 11:30-0500 Body mass index (BMI) [Ratio]32.36 kg/q9McyaapkGita Watts DO Work Phone: [facility]11-13-2024 11:30-0500 Body iymllh772.23 kgGita Watts DO Work Phone: [facility]11-13-2024 11:30-0500 Diastolic blood mwiaeuvc16 mm[Hg]Gita Watts DO Work Phone: [facility]11-13-2024 11:30-0500 Heart rate75 /minGita Watts DO Work Phone: [facility]11-13-2024 11:30-0500 Systolic blood gkwezxlw264 mm[Hg]Gita Watts DO Work Phone: [facility]10-24-2024 11:29-0400 Body mass index (BMI) [Ratio]33.13 kg/k7KbgobnAlea Mckenzie MD Work Phone: 1(926)628-[address] [place] [address] [employer] Hvkive89-41-1204 11:29-0400Body poubjj619.74 kgAlea Mckenzie MD Work Phone: 1(438)844-[address] [place] [address] [employer] Krcidh05-42-6911 11:29-0400Diastolic blood iildkize11 mm[Hg]Alea Mckenzie MD Work Phone: 1([phone])080-[address] [place] [address] [employer] Whixud05-27-5470 11:29-0400Heart rate 65 /minAlea Mckenzie MD Work Phone: 1(210)[phone] [place] [address] [employer] Cbzarq91-79-3240 11:29-0400Systolic blood usvtqjal246 mm[Hg]Alea Mckenzie MD Work Phone: 1(802)712-[address] [place] [address] [employer] Spdwca38-06-9437 11:24-0400Body shqsyx435.8 Nell Castillo TECHNOLOGY APPLICATIONS TEACHER-PROFESSOR OF SOCIOLOGY Work Phone: [facility] Ccgafe99-35-9453 11:24-0400Body mass index (BMI) [Ratio]33.29 kg/l0OznrsuLeeann Castillo TECHNOLOGY APPLICATIONS TEACHER-PROFESSOR OF SOCIOLOGY Work Phone: [facility] Htkvey66-52-5530 11:24-0400Body ihcgvxzotwe92.81 [degF]Leeann Castillo TECHNOLOGY APPLICATIONS TEACHER-PROFESSOR OF SOCIOLOGY Work Phone: [facility]10-08-2024 11:24-0400Body jkxdqu621.23 kgLeeann Castillo APRN-PROFESSOR OF SOCIOLOGY Work Phone: [facility]10-08-2024 11:24-0400Diastolic blood tfyisfqw81 mm[Hg]Leeann Castillo APRN-PROFESSOR OF SOCIOLOGY Work Phone: [facility]10-08-2024 11:24-0400Heart rate 74 /minLeeann Castillo APRN-PROFESSOR OF SOCIOLOGY Work Phone: [facility]10-08-2024 11:24-0400 Respiratory rate18 /minLeeann Castillo TECHNOLOGY APPLICATIONS TEACHER-PROFESSOR OF SOCIOLOGY Work Phone: [facility]10-08-2024 11:24-9018NoR4% (BldA) [Mass fraction]97 %Leeann Castillo APRN-PROFESSOR OF SOCIOLOGY Work Phone: [facility]10-08-2024 11:24-0400Systolic blood gnndkhoe060 mm[Hg]Leeann Castillo APRN-PROFESSOR OF SOCIOLOGY Work Phone: [facility]09-30-2024 14:22-0400Body dsvfki313.3 cmAnthony Rusher DPM Work Phone: [facility] HospitalKgyihnvzhe51-60-4635 14:22-0400Body mass index (BMI) [Ratio]32.78 kg/k8Lowzlnc Rusher DPM Work Phone: 1(268)139-[address] [place], [place] [address]Rmdztzucft52-62-3395 14:22-0400Body pvwjfu726.59 kgAnthony Rusher DPM Work Phone: 1([phone] HospitalQhdbtxdfiu42-87-8133 09:22-0400Body crxgzy220.3 cmAnthony Rusher DPM Work Phone: [phone] [address]Yjymfuzrwr49-30-2393 09:22-0400Body mass index (BMI) [Ratio]32.78 kg/a3Yzmxeai Rusher DPM Work Phone: [phone] HospitalTdehxwxljf13-99-1539 09:22-0400Body .59 kgAnthony Rusher DPM Work Phone: [facility] HospitalLumulerino96-59-5116 10:45-0400Body .3 cmNini Leos DPM Work Phone: [facility] HospitalKmtbqhxcgx78-66-9968 10:45-0400Body mass index (BMI) [Ratio]34.17 kg/v8FiemtbhNini Leos DPM Work Phone: [facility] HospitalYjpwdqsdqw52-17-1927 10:45-0400Body iodztj974.13 kgNini Leos DPM Work Phone: [facility] HospitalWrnvmhtvdg82-63-1175 13:03-0400Body sjigyj341.8 Miguel A Prabhakar MD Work Phone: [phone]08-01-2024 13:03-0400Body mass index (BMI) [Ratio]33.72 kg/g5LzjxbvLucille Prabhakar MD Work Phone: [phone]08-01-2024 13:03-0400Body .59 kgLucille Prabhakar MD Work Phone: [phone]08-01-2024 13:03-0400Diastolic blood ycnabfdq48 mm[Hg]Lucille Prabhakar MD Work Phone: [phone]08-01-2024 13:03-0400Heart rate 71 /minLucille Prabhakar MD Work Phone: [phone]08-01-2024 13:03-0400Systolic blood ugbvbksc074 mm[Hg]Lucille Prabhakar MD Work Phone: [facility]07-12-2024 11:40-0400Body mritks865.8 Nell Castillo APRN-PROFESSOR OF SOCIOLOGY Work Phone: [facility]07-12-2024 11:40-0400Body mass index (BMI) [Ratio]33.72 kg/h5MqupgaLeeann Castillo APRN-PROFESSOR OF SOCIOLOGY Work Phone: [facility]07-12-2024 11:40-0400Body xitxrajylih15.1 [degF]Leeann Castillo TECHNOLOGY APPLICATIONS TEACHER-PROFESSOR OF SOCIOLOGY Work Phone: [facility] [employer] [id number] 11:40-0400Body opyvfe806.59 kgLeeann Castillo APRN-PROFESSOR OF SOCIOLOGY Work Phone: [facility]07-12-2024 11:40-0400Diastolic blood ossnepwr10 mm[Hg]Leeann Castillo TECHNOLOGY APPLICATIONS TEACHER-PROFESSOR OF SOCIOLOGY Work Phone: [facility]07-12-2024 11:40-0400Heart rate 70 /minLeeann Castillo TECHNOLOGY APPLICATIONS TEACHER-PROFESSOR OF SOCIOLOGY Work Phone: [facility]07-12-2024 11:40-0400 Respiratory rate18 /minLeeann Castillo APRN-PROFESSOR OF SOCIOLOGY Work Phone: [facility]07-12-2024 11:40-3023GvF5% (BldA) [Mass fraction]96 %Leeann Castillo APRN-PROFESSOR OF SOCIOLOGY Work Phone: [facility]07-12-2024 11:40-0400Systolic blood crmhizjw778 mm[Hg]Leeann Castillo APRN-PROFESSOR OF SOCIOLOGY Work Phone: [facility]06-05-2024 15:18-0400Body yqzvum546.8 cmNathan Blankenship MD Work Phone: [facility]06-05-2024 15:18-0400Body mass index (BMI) [Ratio]34.87 kg/v8MgqszltNathan Blankenship MD Work Phone: [facility]06-05-2024 15:18-0400Body toiymk016.22 kgNathan Blankenship MD Work Phone: [facility]06-05-2024 15:18-0400Diastolic blood lcevmqxl55 mm[Hg]Nathan Blankenship MD Work Phone: [facility]06-05-2024 15:18-0400Heart rate 80 /minNathan Blankenship MD Work Phone: [facility] [facility] 15:18-0400Systolic blood mm[Hg]Nathan Blankenship MD Work Phone: [facility]05-21-2024 14:17-0400Body ruyhkn558.3 cmWipolina Watts DO Work Phone: [facility]05-21-2024 14:17-0400 Body mass index (BMI) [Ratio]34.31 kg/u6Tilhcpapolina Watts DO Work Phone: [facility]05-21-2024 14:17-0400 Body odbhcl565.58 kgWipolina Watts DO Work Phone: 8(198)167-[address] [place], [place] 6047105-21-2024 14:17-0400 Diastolic blood urctgkip58 mm[Hg]Gita Knowlesdon DO Work Phone: [facility]05-21-2024 14:17-0400 Heart rate72 /minWipolina Watts DO Work Phone: [facility]05-21-2024 14:17-0400 Systolic blood ontwqkca990 mm[Hg]Gita Watts DO Work Phone: [facility]04-29-2024 11:25-0400 Body dsghyo989.8 Lucian Morse MD Work Phone: [facility]04-29-2024 11:25-0400Body mass index (BMI) [Ratio]34.87 kg/m2Kayden Morse MD Work Phone: [facility]04-29-2024 11:25-0400Body bcmksxzyrsk71.81 [degF]Kayden Morse MD Work Phone: [facility]04-29-2024 11:25-0400Body .22 kgKayden Morse MD Work Phone: [facility]04-29-2024 11:25-0400Diastolic blood obotsgvk91 mm[Hg]Kayden Morse MD Work Phone: [facility] [employer] Lzqhzj45-70-2314 11:25-0400Heart rate 74 /minKayden Morse MD Work Phone: [facility] [employer] Gzupha68-95-8329 11:25-0400 Respiratory rate18 /minKayden Morse MD Work Phone: [facility] [employer] Efsgto28-51-1959 11:25-9335FmV1% (BldA) [Mass fraction]98 %Kayden Morse MD Work Phone: [facility] [employer] Zwtaif85-54-1963 11:25-0400Systolic blood ekpzmocq155 mm[Hg]Kayden Morse MD Work Phone: [facility] [employer] Qobayv19-66-1095 11:27-0400Body kuplav635.8 cmAmelindasteph Jonathan TECHNOLOGY APPLICATIONS TEACHER-PROFESSOR OF SOCIOLOGY Work Phone: [facility] [employer] Ultrxw62-75-8108 11:27-0400Body mass index (BMI) [Ratio]36.01 kg/v4Mmzytp Jonathan TECHNOLOGY APPLICATIONS TEACHER-PROFESSOR OF SOCIOLOGY Work Phone: [facility] [employer] Mdgogd49-26-6458 11:27-0400Body .2 [degF]Leeann Jonathan TECHNOLOGY APPLICATIONS TEACHER-PROFESSOR OF SOCIOLOGY Work Phone: [facility] [employer] Zpntvn03-86-5693 11:27-0400Body liqurs685.85 kgHumblesteph Jonathan TECHNOLOGY APPLICATIONS TEACHER-PROFESSOR OF SOCIOLOGY Work Phone: [facility] [employer] Dkymoa33-98-7951 11:27-0400Diastolic blood uizxsvyx25 mm[Hg]Leeann Jonathan TECHNOLOGY APPLICATIONS TEACHER-PROFESSOR OF SOCIOLOGY Work Phone: [facility] [employer] Yihaom06-60-5688 11:27-0400Heart rate 64 /minLeeann Castillo TECHNOLOGY APPLICATIONS TEACHER-PROFESSOR OF SOCIOLOGY Work Phone: [facility] Ovpgxt13-44-3147 11:27-0400 Respiratory rate18 /minLeeann Castillo TECHNOLOGY APPLICATIONS TEACHER-PROFESSOR OF SOCIOLOGY Work Phone: [facility]04-12-2024 11:27-8073VvE3% (BldA) [Mass fraction]97 %Leeann Castillo TECHNOLOGY APPLICATIONS TEACHER-PROFESSOR OF SOCIOLOGY Work Phone: [facility]04-12-2024 11:27-0400Systolic blood kfheiejg828 mm[Hg]Leeann Castillo TECHNOLOGY APPLICATIONS TEACHER-PROFESSOR OF SOCIOLOGY Work Phone: [facility]ila[facility]u04-09-2024 16:06-0400Body iinamr230.8 cmNanyeny Mckenzie LD Work Phone: [facility]04-09-2024 16:06-0400Body mass index (BMI) [Ratio]35.44 kg/b9TczthApolinar Mckenzie LD Work Phone: [facility]04-09-2024 16:06-0400Body ibxlak848.04 kgApolinar Mckenzie LD Work Phone: [facility] HospitalLilaKutu03-25-2024 09:59-0400Body oqyvek005.8 cmAshley Namton PA Work Phone: [facility]03-25-2024 09:59-0400Body mass index (BMI) [Ratio]36.3 kg/a9Vtkfvo Jennifer PA Work Phone: [facility]03-25-2024 09:59-0400Body syosgo588.76 kgMemelvin Jennifer PA Work Phone: [facility]03-25-2024 09:59-0400Diastolic blood taukbiro91 mm[Hg]Ashley Jennifer PA Work Phone: [facility]03-25-2024 09:59-0400Heart rate 70 /minMeyaryan Jenniefr PA Work Phone: [facility]03-25-2024 09:59-0400Systolic blood mm[Hg]Ashley Jennifer PA Work Phone: [facility]03-14-2024 13:54-0400Body qumlgy567.8 cmAlionel Castillo APRN-PROFESSOR OF SOCIOLOGY Work Phone: [facility] Wvmpnt45-11-6201 13:54-0400Body mass index (BMI) [Ratio]36.3 kg/j9WcegaqLeeann Castillo APRN-PROFESSOR OF SOCIOLOGY Work Phone: [facility] Eclmcv79-84-8447 13:54-0400Body yvfsioaignz28.7 [degF]Leeann Castillo APRN-PROFESSOR OF SOCIOLOGY Work Phone: [facility] HospitalYottaa Lclpjj30-77-6684 13:54-0400Body ravtcc811.76 kgLeeann Castillo APRN-PROFESSOR OF SOCIOLOGY Work Phone: [facility] HospitalYottaa Glhzqk61-50-9668 13:54-0400Diastolic blood mm[Hg]Leeann Castillo APRN-PROFESSOR OF SOCIOLOGY Work Phone: [facility] Ocouqt79-31-8177 13:54-0400Heart rate 68 /minLeeann Castillo APRN-PROFESSOR OF SOCIOLOGY Work Phone: [facility] HospitalYottaa Ujwoce23-15-7551 13:54-0400 Respiratory rate20 /minLeeann Castillo APRN-PROFESSOR OF SOCIOLOGY Work Phone: [facility] HospitalYottaa Rlbdji75-51-2449 13:54-9540InR7% (BldA) [Mass fraction]98 %Leeann Castillo APRN-PROFESSOR OF SOCIOLOGY Work Phone: [facility] HospitalYottaa Touzvn15-70-1180 13:54-0400Systolic blood canhwpqe681 mm[Hg]Leeann Castillo APRN-PROFESSOR OF SOCIOLOGY Work Phone: [facility] HospitalYottaa Mdudwu05-93-5542 13:32-0500Body lnlean108.8 cmBobbi Steen MD Work Phone: [facility] HospitalY[facility]a Imwngn05-03-2401 13:32-0500Body mass index (BMI) [Ratio]35.58 kg/d4ZangcBobbi Steen MD Work Phone: [facility] Mhjdya83-97-5519 13:32-0500Body .49 kgBobbi Steen MD Work Phone: [facility]02-29-2024 13:32-0500Diastolic blood mm[Hg]Bobbi Steen MD Work Phone: [facility]02-29-2024 13:32-0500Heart rate 72 /minBobbi Steen MD Work Phone: [facility]02-29-2024 13:32-0500Systolic blood dqugkgkt597 mm[Hg]Bobbi Steen MD Work Phone: [facility]02-14-2024 12:39-0500Body waleci819.3 cmTesha Gavin TECHNOLOGY APPLICATIONS TEACHER-PROFESSOR OF SOCIOLOGY Work Phone: 1(160)481-[address] [place], [place] 6047102-14-2024 12:39-0500 Body mass index (BMI) [Ratio]34.73 kg/o1OdswsTesha Gavin TECHNOLOGY APPLICATIONS TEACHER-PROFESSOR OF SOCIOLOGY Work Phone: [phone])[address]02-14-2024 12:39-0500 Body eunibg665.95 kgTesha Gavin TECHNOLOGY APPLICATIONS TEACHER-PROFESSOR OF SOCIOLOGY Work Phone: 1([phone])[address]02-14-2024 12:39-0500 Diastolic blood quebtjko50 mm[Hg]Tesha Gavin TECHNOLOGY APPLICATIONS TEACHER-PROFESSOR OF SOCIOLOGY Work Phone: 1(627)[address]02-14-2024 12:39-0500 Heart rate76 /minDalicia Gavin TECHNOLOGY APPLICATIONS TEACHER-PROFESSOR OF SOCIOLOGY Work Phone: 1(911)332-[address] [place], [place] 6047102-14-2024 12:39-0500 Systolic blood qzslrqoj971 mm[Hg]Tesha Gavin TECHNOLOGY APPLICATIONS TEACHER-PROFESSOR OF SOCIOLOGY Work Phone: 1(247)042-[address] [place], [place] 6047102-12-2024 14:36-0500 Body mrewrr719.3 cmVeronica De Jesus TECHNOLOGY APPLICATIONS TEACHER-FOUNDRY PATTERNMAKER Work Phone: [facility]02-12-2024 14:36-0500Body mass index (BMI) [Ratio]34.61 kg/m2Veronica De Jesus TECHNOLOGY APPLICATIONS TEACHER-FOUNDRY PATTERNMAKER Work Phone: [facility]02-12-2024 14:36-0500Body qttfojcjqbv26.3 [degF]Veronica GANDARAFOUNDRY PATTERNMAKER Work Phone: [facility]02-12-2024 14:36-0500Body ynlfpj910.49 kgVeronica De Jesus APRN-FOUNDRY PATTERNMAKER Work Phone: [facility]02-12-2024 14:36-0500Diastolic blood gsqmpcdy44 mm[Hg]Veronica De Jesus APRN-FOUNDRY PATTERNMAKER Work Phone: [facility]02-12-2024 14:36-8557YlM3% (BldA) [Mass fraction]95 %Veronica GANDARAFOUNDRY PATTERNMAKER Work Phone: [facility]02-12-2024 14:36-0500Systolic blood mohxzxtp097 mm[Hg]Veronica JUNIOR Work Phone: [facility]02-06-2024 12:00-0500Body rewrtphlxvi02.1 [degF][facility]02-06-2024 12:00-0500 Diastolic blood ilblusxx83 mm[Hg][facility]02-06-2024 12:00-0500Heart rate75 /[facility]02-06-2024 12:00-0500Respiratory rate18 /[facility]02-06-2024 12:00-6666AsL5% (BldA) [Mass fraction]98 %[facility] 10-09-2023 12:00-0500Systolic blood zchutdqc006 mm[Hg][facility]02-06-2024 01:32-0500Body cfndqi095.4 kg[facility] 10-06-2023 11:39-0500Body yphzkz363.8 cm[facility] 10-06-2023 10:53-0500Diastolic blood erofljmu80 mm[Hg][facility]02-03-2024 10:53-0500Heart rate79 /[facility] 10-06-2023 10:53-0500Respiratory rate18 /[facility] 10-06-2023 10:53-3694TkR0% (BldA) [Mass fraction]99 %[facility]02-03-2024 10:53-0500Systolic blood fdcvsdix058 mm[Hg][facility]02-03-2024 04:04-0500Body fxinvb967 kg[facility]02-03-2024 04:00-0500Body meirtfaxmbw04.6 [degF][facility]02-01-2024 08:21-0500Body dvudyh247.34 cm[facility]01-17-2024 13:09-0500Body lozllz748 cmMegan Verhoff PA-C Work Phone: [facility]01-17-2024 13:09-0500Body mass index (BMI) [Ratio]31.4 kg/i3Qjpkk Verhoff PA-C Work Phone: [facility]01-17-2024 13:09-0500Body .03 kgMegan Verhoff PA-C Work Phone: [facility] [employer] Ckctxt95-85-3633 13:09-0500Diastolic blood nhugimsf13 mm[Hg]Yari Verhoff PA-C Work Phone: [facility]01-17-2024 13:09-0500Heart rate 69 /minMegan Verhoff PA-C Work Phone: [facility]01-17-2024 13:09-0500 Respiratory rate20 /minMegan Verhoff PA-C Work Phone: [facility] [employer] Tsissn59-11-5751 13:09-0500Systolic blood ygkmxupn222 mm[Hg]Yari Verhoff PA-C Work Phone: [facility]01-09-2024 12:56-0500Body kqrafp891 cmJohn Yuhas DO Work Phone: [facility] [employer] Oybrcu18-15-4499 12:56-0500Body mass index (BMI) [Ratio]31.92 kg/m2Tom Bells DO Work Phone: [facility]01-09-2024 12:56-0500Body acuhgfuyyjq56.81 [degF]Tom Paniagua DO Work Phone: [facility]01-09-2024 12:56-0500Body faimhc878.93 kgTom Paniagua DO Work Phone: [facility]01-09-2024 12:56-0500Diastolic blood guukoksk23 mm[Hg]Tom Paniagua DO Work Phone: [facility]01-09-2024 12:56-0500Heart rate 78 /minJomaksim Paniagua DO Work Phone: [facility]01-09-2024 12:56-6151VkU0% (BldA) [Mass fraction]96 %Tom Paniagua DO Work Phone: [facility]01-09-2024 12:56-0500Systolic blood njkkanbn939 mm[Hg]Tom Paniagua DO Work Phone: [facility]07-13-2023 15:53-0400Body kdmiku504.34 cmJomaksim Paniagua Work Phone: 1(763) [phone]-Umhbs [facility] DO Work Phone: 1(534) 352-290907-13-2023 15:53-0400Body mass index (BMI) [Ratio]34.9 kg/m2Tom Bells Work Phone: 1(471) [phone]-Pppgc [facility] DO Work Phone: 1(827) 693-695107-13-2023 15:53-0400Body surface area Derived from formula2.32 m2Tom Bells Work Phone: 1(818) [phone]-Zdpjz [facility] DO Work Phone: 1(739) 807-777807-13-2023 15:53-0400Body nkyqey474.51 kgTom Paniagua Work Phone: mp274-7599EB-Zrlzj [facility] DO Work Phone: 1(908) 401-691407-13-2023 15:53-0400Diastolic blood dukrphbd05 mm[Hg] Tom Paniagua Work Phone: mp132-6905SJ-Pwqfy [facility] DO Work Phone: 1(287) 310-165007-13-2023 15:53-0400Heart rate75 /minJomaksim Paniagua Work Phone: mp745-9303MS-Wpffi [facility] DO Work Phone: 1(781) 917-162207-13-2023 15:53-0400Systolic blood czeagedx381 mm[Hg] Tom Paniagua Work Phone: mp193-1774YV-Tllkn [facility] DO Work Phone: 1(478) 578-865905-04-2023 19:28-0400Body .3 Bryanna Oakes CNP Work Phone: 1(456) [phone]499IqchKjswfp09-53-2123 19:28-0400Body mass index (BMI) [Ratio]33.91 kg/q3IyolowEtta Oakes CNP Work Phone: 1(814) [phone]37CyjdOufwks04-77-8318 19:28-0400Body hurluvmjxuu04.9 [degF]Etta Oakes CNP Work Phone: 1(709) [phone]hqyfz05-10-0809 19:28-0400Body xutcox751.27 kg Etta Oakes CNP Work Phone: 1(277) [phone]46EodhDomegj12-56-5585 19:28-0400Diastolic blood crqldtco48 mm[Hg]Etta Oakes CNP Work Phone: 1(490) [phone]iMmsnma81-62-8824 19:28-0400Heart rate88 /minEtta Oakes CNP Work Phone: 1(529) [phone]wntCnbfme27-81-3274 19:28-0400Respiratory rate16 /min Etta Oakes CNP Work Phone: oh078-3395XsauLltezm50-434823OcghZgmmea56-85-0848 19:28-3510LjR9% (BldA) [Mass fraction]97 %Etta Oakes PROFESSOR OF SOCIOLOGY Work Phone: [place]io828-1618TupaOquuer80-046661LvcrTzbsnk62-73-6024 19:28-0400Systolic blood pressure 137 mm[Hg]Etta Oakes PROFESSOR OF SOCIOLOGY Work Phone: [phone]65ElohQksccd01-85-9147 12:30-0400Body oejtrp633.61 cm Lula Del Rosario Other [employer] Other 11-03-2022 12:30-0400Body mass index (BMI) [Ratio] 34.65 kg/k5RbygvLula Del Rosario Other [employer] Other 11-03-2022 12:30-0400Body wdqorrtpmwa17.3 [degF]Lula Del Rosario Other [employer] Other 11-03-2022 12:30-0400Body iruskr898.31 kgLlua Del Rosario Other [employer] Other 11-03-2022 12:30-0400Diastolic blood flmrhovc19 mm[Hg] Lula Del Rosario Other [employer] Other 11-03-2022 12:30-3667BnN7% (BldA) [Mass fraction]98 % Lula Del Rosario Other [employer] Other 11-03-2022 12:30-0400Systolic blood jknbbind824 mm[Hg] Lula Del Rosario Other [employer] Other 03-20-2022 19:15-0400Diastolic blood pngaahcz46 mm[Hg] [facility] Work Phone: 1(492) 876-196903-20-2022 19:15-0400Heart rate99 /minNo [facility] Work Phone: 1(308) 537-180703-20-2022 19:15-0400Respiratory rate16 /minNo [facility] Work Phone: 1(987) 475-318403-20-2022 19:15-8289CeL5% (BldA) [Mass fraction]99 % No [facility] Work Phone: 1(384) 123-132903-20-2022 19:15-0400Systolic blood ehkdmnbq022 mm[Hg] No [facility] Work Phone: 1(596) 212-863503-20-2022 14:56-0400Body .[address] [facility] Work Phone: 1(598) 160-367303-20-2022 14:56-0400Body mass index (BMI) [Ratio]34.2 kg/m2No [facility] Work Phone: 1(391) 676-180703-20-2022 14:56-0400Body owhbkswuokr45.2 [degF]No [facility] Work Phone: 1(895) 789-143403-20-2022 14:56-0400Body .[address] [facility] Work Phone: Encounters Encounter DateEncounter TypeCare ProviderFacilityStart: 91-16-7015opgoyocmju [facility] JONATHANUC Medical Centertart: 06-19-2025 End: 63-27-8489Ahzlsymqe encounterTrasathya Alexandre RN Work Phone: [facility]/Kayden Morse MD Start: 06-19-2025 End: 89-69-8952Qebpaf outpatient visit 25 minutesAllouezsteph Castillo TECHNOLOGY APPLICATIONS TEACHER-PROFESSOR OF SOCIOLOGY Work Phone: [facility]/Kayden Morse MD Comment on above:Type 2 diabetes mellitus with diabetic peripheral angiopathy without gangrene, with long-term current use of insulin ([facility]) (Primary Dx); Burning tongue; Primary hypertension; Obesity, morbid ([facility]); Mixed hyperlipidemia; CAD, multiple vessel; Obsessive-compulsive disorder, unspecified typeStart: 06-19-2025 End: 90-90-1415jspaczsokoCVINPQ [facility] Ambulatory PPGStart: 52-90-2362ouucrggoueSDPNXD T SESEFacility:[facility] HospitalStart: 06-11-2025 End: 95-54-0424Yqhakp outpatient visit 15 minutesBobbi Steen MD Work Phone: [facility] Phys[facility] NeuroSurgeryComment on above: Other urinary incontinence (Primary Dx); Cauda equina compression ([facility])Start: 06-11-2025 End: 06-30-7687wbfskessdgPBOUS A [facility] Ambulatory PPGStart: 06-10-2025 End: 25-45-9071Yvwzzw flowsheetAnthony S Rusher DPM Work Phone: [facility] PodiatryStart: 06-10-2025 End: 27-40-5539Kvfxwp flowsheetAnthony S Rusher DPM Work Phone: [facility] PodiatryStart: 06-10-2025 End: 99-88-1465Knpaki outpatient visit 15 minutesAnthangela Chatman DPM Work Phone: noBo[facility] Hospital PodiatryComment on above:Hammer toe of left foot (Primary Dx); Corns and callosities; Diabetic polyneuropathy associated with type 2 diabetes mellitus (HCC); Dystrophic nail; Dermatophytosis of nailStart: 06-10-2025 End: 41-71-4838qivegrmexwWVXBGBS S RUSHERNot AvailableStart: 06-05-2025 End: 45-93-9360slrcpkabcpHHAJIM CHARARAFacility:[facility] HospitalStart: 09-97-8068cxeldtxhbfJMBYHVKLECleveland Clinic Medina Hospitaltart: 05-14-2025 End: 44-62-2087Fdavtba encounter procedureRodrigue Jj MD Work Phone: NeurologyComment on above:Memory loss (Primary Dx); Cognitive impairment, mild, so stated; Obsessive-compulsive disorder, unspecified type; Recurrent major depressive disorder, remission status unspecified; CANDIDA (generalized anxiety disorder); MCI (mild cognitive impairment)Start: 05-14-2025 End: 58-07-3594wzajixmkhuXAENAP T SESEFacility:[facility] HospitalStart: 05-12-2025 End: 76-89-7495Pwedpmzpi Patricia Mckenzie MD Work Phone: [facility], A Department of [facility] HospitalStart: 05-05-2025 End: 67-67-5517Kyovusbvg encounterDorothy VERALallie [facility] Medical Centertanja Physicians NeuroSurgeryComment on above:ResultsStart: 04-21-2025 End: 35-71-5755Tgffoi-up encounterShanice STEWART Work Phone: [facility] Physicians NeuroSurgeryComment on above:MR lumbar spine without contrastStart: 04-16-2025 End: 05-04-6951iaeuoxzxymGPQOB A REINARDProSally Barataria HospitalStart: 04-11-2025 End: 49-72-9946LwcykbUjpmig Brown MD Work Phone: [facility] Physicians Adult EndocrinologyComment on above:Type 2 diabetes mellitus with diabetic peripheral angiopathy without gangrene, with long-term current use of insulin ([facility])Start: 04-09-2025 End: 00-46-2421Zsqbywgshn and management of inpatientMOHAMAD H EL ZEINProAccess Hospital [facility] HospitalStart: 04-06-2025 End: 80-80-8807Aoxlwxnru Patricia Mckenzie MD Work Phone: [facility] A [facility] of [facility] HospitalStart: 04-06-2025 End: 19-23-3307pgnhgpextdAWWMR A REINARDProJayca [facility] HospitalStart: 04-01-2025 End: 02-02-2934Kaocffrenay Chatman DPSwapnil Work Phone: [facility] PodiatryStart: 04-01-2025 End: 21-16-9363Bnhqcurenay Chatman DPSwapnil Work Phone: [facility] PodiatryStart: 04-01-2025 End: 92-53-3322Hdxnrfsss to establishment[address] Streettart: 20-54-7948nysyszrjymDEVLEHL Raad [facility] Campustart: 04-01-2025 Encounter for other preprocedural examinationMOLINCOLN HOSPITALAD [facility] Campustart: 04-01-2025 End: 00-32-2551Xdonrdp [facility]Sum[facility] Pre[facility]Ad[facility] Testing [address] [place] [address] -Pre Admission TestingComment on above:Encounter for preadmission testing (Primary Dx)Start: 04-01-2025 End: 43-01-7277jexjvrwjyvJIJRNKB S RUSHERNot AvailableStart: 04-01-2025 End: 29-06-4353Rvozfb outpatient visit 15 Vanessa Chatman DPM Work Phone: noBo[facility] PodiatryComment on above:Diabetic polyneuropathy associated with type 2 diabetes mellitus (HCC) (Primary Dx); Lloyds and callositiesStart: 03-24-2025 End: 11-33-6327vmpmdqzpliCGDAVHealthSouth [facility] Ambulatory PPGStart: 03-24-2025 End: 96-59-4764Mxkugn outpatient visit 15 Christiano STEWART Work Phone: [facility] Physicians NeuroSurgeryComment on above: Numbness in both legs (Primary Dx); Status post lumbar spinal fusionStart: 03-19-2025 End: 13-67-6835Rqojks outpatient visit 25 minutesGita Watts DO Work Phone: Firevirginia mason hospitalComment on above:ASHD (arteriosclerotic heart disease); History of coronary artery bypass graft; History of PTCA; Shortness of breath; Type 2 diabetes mellitus without complication, with long-term current use of insulin; Anxiety; Never smoked cigarettes; BMI 35.0-35.9,adult; Mixed hyperlipidemiaStart: 03-19-2025 End: 52-08-2197agnihwcintZZFRNHY S [facility] AmbulatoryStart: 03-17-2025 End: 60-45-1270Lcolxc outpatient visit 25 minutesSvetaangela Rojo Areli DPM Work Phone: [facility] PODIATRYComment on above:Ulcer of right foot with fat layer exposed (HCC) (Primary Dx); Contusion of lesser toe of left foot without damage to nail, subsequent encounter; Dermatophytosis of nail; Dystrophic nail; Corns and callosities; Diabetic polyneuropathy associated with type 2 diabetes mellitus (HCC)Start: 03-17-2025 End: 10-80-1189wmlwfkylrxERJKQGY S RUSHERNot AvailableStart: 03-17-2025 End: 09-52-4425Ownldxw encounter procedureAllouezsteph Castillo TECHNOLOGY APPLICATIONS TEACHERMIRAVISTA BEHAVIORAL HEALTH CENTER Work Phone: [facility]/Kayden Morse MD Comment on above:Medicare annual wellness visit, subsequent (Primary Dx); Type 2 diabetes mellitus with diabetic peripheral angiopathy without gangrene, with long-term current use of insulin ([facility]); Primary hypertension; Pseudodementia; Obesity, morbid ([facility]); CAD, multiple vessel; Mixed hyperlipidemia; Moderate episode of recurrent major depressive disorder ([facility]); Gait disturbance; Incontinence of feces, unspecified fecal incontinence typeStart: 03-17-2025 End: 02-36-1915bswxpwusvvEAGIHMStrong Memorial Hospital Ambulatory PPGStart: 03-11-2025 End: 25-57-1818Airffj flowsheetPaige Paystrup SENIOR OFFICE SUPPORT ASSISTANT SOSA Work Phone: [facility] M[facility] FMStart: 03-11-2025 End: 91-58-6362Judiuf flowsheetPaige Paystrup SENIOR OFFICE SUPPORT ASSISTANT SOSA Work Phone: [facility] FMStart: 03-11-2025 End: 02-43-4871Vktbpi outpatient new 45 minutesPaige Paystrup SENIOR OFFICE SUPPORT ASSISTANT SOSA Work Phone: [facility] M[facility] FMComment on above:Arthritis of right shoulder (Primary Dx); Pre-op exam; Type 2 diabetes mellitus with diabetic peripheral angiopathy without gangrene, with long-term current use of insulin ([facility]); Mixed hyperlipidemia ; Primary hypertension ; History of PTCA; Constipation, unspecified constipation type; Depression, unspecified depression type ; CANDIDA (generalized anxiety disorder) ; Severe episode of recurrent major depressive disorder, without psychotic features (HCC); Obsessive-compulsive disorder, unspecified typeStart: 03-11-2025 End: 35-14-2562Kyvtnsqqyzdmk examination donePaige Paystrup SENIOR OFFICE SUPPORT ASSISTANT SOSA Work Phone: [facility] Work Phone: Start: 03-11-2025 End: 38-20-2619kbnpaarnwiWLUQM PAYSTRUPNot AvailableStart: 03-01-2025 End: 47-08-7631CagxlvYvbpsi Koch APRN-PROFESSOR OF SOCIOLOGY Work Phone: [facility]/Kayden Morse MD Start: 02-23-2025 End: 17-35-6880Kyjjew flowsheetAnthony S Venkather DPM Work Phone: [facility]ODIATRYStart: 02-23-2025 End: 41-81-7535Sxmewg flowsheetAnthony S Venkather DPM Work Phone: [facility]ODIATRYStart: 02-23-2025 End: 29-29-3627Ayefjg outpatient visit 15 minutesAnthangela Chatman DPM Work Phone: [facility] PODIATRYComment on above:Diabetic polyneuropathy associated with type 2 diabetes mellitus (HCC) (Primary Dx); Ulcer of left foot with fat layer exposed (HCC); Hammer toe of left footStart: 02-23-2025 End: 89-35-5968byjmmdyqyxBSLQZGO S RUSHERNot AvailableStart: 02-03-2025 End: 94-12-6279gqakqimrqcJQEVQNH S RUSHERNot AvailableStart: 02-03-2025 End: 90-61-5817Swzsvd outpatient visit 25 minutesAnthangela Chatman DPM Work Phone: noms PODIATRYComment on above:Ulcer of left foot with fat layer exposed (CMS/HCC) (Primary Dx); Diabetic polyneuropathy associated with type 2 diabetes mellitus (CMS/HCC); Dermatophytosis of nail; Contusion of lesser toe of left foot without damage to nail, initial encounter Start: 88-49-9010tnitclwdilAUXZFGBDU H COXWVUMedicine [facility] HospitalStart: 01-18-2025 End: 48-76-7799Nuektfiwx department patient visitGeisinger-Lewistown Hospitaltart: 90-71-1049awcutgwssxNxuqxzvaqmu RoxanneFacility:[facility] Hamiltontart: 01-14-2025 End: 91-38-4383Pmjiyb outpatient visit 25 minutesAlea Mckenzie MD Work Phone: [facility], A Department of [facility] HospitalComment on above:Type 2 diabetes mellitus with diabetic peripheral angiopathy without gangrene, with long-term current use of insulin ([facility]) (Primary Dx)Start: 01-14-2025 End: 24-49-8212ddjrglajtjMDLHYY BROWNCincinnati Shriners Hospitaltart: 01-08-2025 End: 93-40-9785Ojcntvosb encounterSoraya LaresAdventHealth Tampa Neurology, A Department of [facility] HospitalComment on above:New PatientStart: 01-07-2025 End: 64-03-6936Coaatm outpatient visit 15 minutesLeeann Castillo SONIDO-PROFESSOR OF SOCIOLOGY Work Phone: [facility]/Kayden Morse MD Comment on above:Gait disturbance (Primary Dx); Moderate episode of recurrent major depressive disorder ([facility])Start: 01-07-2025 End: 97-81-5083tvsktauvzeZFRSKSStrong [facility] Hospital Ambulatory PPGStart: 12-31-2024 End: 90-89-6273Oerqqymor department patient visitGeisinger-Lewistown Hospitaltart: 12-16-2024 End: 28-72-3251ljcvtncxymDijxzlzobMemorial Health System Work Phone: Start: 12-16-2024 End: 68-20-8432Uyjrtyt encounter procedurePrashanth Physician Group-[facility] Angelo Work Phone: Start: 12-15-2024 End: 87-74-5678Kbrndpdjy Patricia Mckenzie MD Work Phone: [facility], A Department of [facility] Hospitaltart: 12-10-2024 End: 22-26-5050Fblouy outpatient visit 15 minutesNithin YOUNG Work Phone: [facility] Physicians Genito-Urinary SurgeonsComment on above:Urinary retention (Primary Dx)Start: 12-10-2024 End: 45-27-3269rvtrsdwubuINJRTBCB I MURPHYMercy Health [facility] PPG Start: 12-02-2024 End: 58-24-1662Hqvtux outpatient visit 15 minutesAnthangela Chatman DPM Work Phone: noms PODIATRYComment on above:Diabetic polyneuropathy associated with type 2 diabetes mellitus (CMS/HCC) (Primary Dx); Dermatophytosis of nail; Dystrophic nailStart: 12-02-2024 End: 69-90-8079lftwzkcrpoUMNSMPD S RUSHERNot AvailableStart: 12-02-2024 End: 41-94-4333Zlpmqy flowsheetAnthony S Rusher DPM Work Phone: noms PODIATRYStart: 12-02-2024 End: 13-93-7173Sojhzv flowsheetAnthony S Rusher DPM Work Phone: noms PODIATRYStart: 11-28-2024 End: 19-07-7832Jfiudn flowsGary YOUNG Work Phone: noms FB ORTHOPAEDICSStart: 11-28-2024 End: 77-69-0156Agjhhk flowsGary YOUNG Work Phone: noms FB ORTHOPAEDICSStart: 11-28-2024 End: 98-70-3107Pnibze outpatient visit 10 minutesMattja YOUNG Work Phone: noms FB ORTHOPAEDICSComment on above:Acute pain of right shoulder (Primary Dx); Rotator cuff tear arthropathy of right shoulderStart: 11-28-2024 End: 78-30-6762vjevsybabrPPRYNKU J MEYERNot AvailableStart: 11-19-2024 End: 60-77-9707Osnmlx outpatient visit 25 minutesTim Ibrahim MD Work Phone: [facility], A Department of [facility] HospitalComment on above:Other constipation (Primary Dx); Antiplatelet or antithrombotic long-term use; History of colon polypsStart: 11-19-2024 End: 92-37-5100hcfflghbuxXBCBAEV H EL ZEINFostoria City Hospital HospitalStart: 11-19-2024 End: 62-98-5828fauebpamcjMRCPAOStrong Memorial Hospital Ambulatory PPGStart: 11-19-2024 End: 40-41-3022Okmsnf outpatient visit 15 minutesRed River Behavioral Health SystemN-[facility] Work Phone: [facility]/Kaydne Morse MD Comment on above:Primary hypertension (Primary Dx); Type 2 diabetes mellitus with diabetic peripheral angiopathy without gangrene, with long-term current use of insulin ([facility]); Chronic diastolic CHF (congestive heart failure) ([facility]); CAD, multiple vesselStart: 11-14-2024 End: 51-14-6376Xicuxylqx encounterBrwendi [facility] Adult Endocrinology, A Department of [facility] HospitalStart: 11-14-2024 End: 88-72-6774sewptkgsnyDJRSEKD J MEYERNot AvailableStart: 11-06-2024 End: 50-31-9203nbjtbclydwRXXQW BROWNWVUMedicine [facility] HospitalStart: 11-06-2024 End: 62-84-4090Vgywonjnq Fred LIGHT Work Phone: [facility] - Diabetes and Nutrition EducationComment on above:Type 2 diabetes mellitus with diabetic peripheral angiopathy without gangrene, with long-term current use of insulin ([facility])Start: 05-16-2883diaflvigjnTLVLVUB J MEYERProMedica [facility] Start: 10-31-2024 End: 15-21-5089Rcpshp orquideaheetYi YOUNG Work Phone: NOMS FB ORTHOPAEDICSStart: 10-31-2024 End: 03-07-1581Zveuvf flowsheetYi YOUNG Work Phone: noms ORTHOPAEDICSStart: 10-31-2024 End: 87-38-8335Dxjfrg outpatient visit 25 minutesYi YOUNG Work Phone: noms ORTHOPAEDICSComment on above:Acute pain of right shoulder (Primary Dx); Acute pain of left shoulder; Arthritis of left shoulder region; Arthritis of left acromioclavicular joint; Arthritis of right acromioclavicular jointStart: 10-31-2024 End: 93-66-2337neuesnbcbcDTUIYOH J MEYERNot AvailableStart: 10-22-2024 End: 15-89-5451Dyvdog outpatient visit 25 minutesTim Ibrahim MD Work Phone: [facility]ITALComhen[facility] on above: Constipation, unspecified constipation type (Primary Dx); Left lateral abdominal pain; Antiplatelet or antithrombotic long-term use; CAD, multiple vesselStart: 10-22-2024 End: 04-20-5788oifncoiijwICVBJZT H EL ZEINParkwood Hospital HospitalStart: 10-20-2024 End: 20-81-1493Poncrmmpl encounterShobha Delong TECHNOLOGY APPLICATIONS TEACHER-PROFESSOR OF SOCIOLOGY Work Phone: [facility] - Diabetes Start: 10-17-2024 End: 68-48-6929obrgshcbocDAOQVR J PHILLIPSFostoria City Hospital HospitalStart: 10-17-2024 End: 43-08-1135Xjynhm outpatient visit 25 minutesShobha Delong APRN-PROFESSOR OF SOCIOLOGY Work Phone: [facility] Adult Endocrinology, A Department of [facility] HospitalComhenry ford hospital on above:Type 2 diabetes mellitus with diabetic peripheral angiopathy without gangrene, with long-term current use of insulin ([facility]) (Primary Dx); Mixed hyperlipidemiaStart: 58-82-5798ldytfedoijTVBJXB J PHILLIPSFostoria City Hospital HospitalStart: 18-56-2725vvryuqcqeaKWRHDRU J [facility] Start: 10-03-2024 End: 71-99-9329kurpccjptvOZAMAJPrairie St. [facility] HospitalStart: 09-29-2024 End: 59-28-1655Phqpdc outpatient visit 25 [facility] TECHNOLOGY APPLICATIONS TEACHER-PROFESSOR OF SOCIOLOGY Work Phone: [facility] Physicians Internal Medicine/Kayden Morse MD Comment on above:Essential hypertension (Primary Dx); Mixed hyperlipidemia; Chronic diastolic CHF (congestive heart failure) ([facility]); Type 2 diabetes mellitus with diabetic peripheral angiopathy without gangrene, with long-term current use of insulin ([facility])Start: 09-29-2024 End: 86-00-2096dpumqvcfaiYMNHUYStrong Memorial Hospital Ambulatory PPGStart: 09-26-2024 End: 88-35-7642Qqfkzz Jesus YOUNG Work Phone: noms FB ORTHOPAEDICSStart: 09-26-2024 End: 39-91-1871Srcliy Jesus YOUNG Work Phone: noms FB ORTHOPAEDICSStart: 09-26-2024 End: 54-56-5826Dsocho outpatient visit 25 minutesNyu Langone Hassenfeld Children'S Hospitalja YOUNG Work Phone: noms FB ORTHOPAEDICSComment on above:Acute pain of right knee (Primary Dx); Traumatic hematoma of right knee, subsequent encounter; Left hip pain; Stiffness of hip joint, unspecified laterality; Gait difficultyStart: 09-26-2024 End: 53-53-2780tsxapcamgxPXMEFFZ J MEYERNot AvailableStart: 09-12-2024 End: 42-98-4956Joegwd Jesus YOUNG Work Phone: noms FB ORTHOPAEDICSStart: 09-12-2024 End: 51-00-5381Yuporv Jesus YOUNG Work Phone: noms FB ORTHOPAEDICSStart: 09-12-2024 End: 00-17-2274udnqikditxBNJJWKX J MEYERNot AvailableStart: 09-12-2024 End: 72-68-7215Ktlnea outpatient visit 15 minutesMattja YOUNG Work Phone: noms ORTHOPAEDICSComment on above:Acute pain of right knee (Primary Dx); History of bilateral knee replacement; Traumatic hematoma of right knee, initial encounterStart: 09-02-2024 End: 42-74-5313tptkciovmwYPBXOX [facility] HospitalStart: 09-01-2024 End: 06-31-9190azccdjdzdcXSJHOIL S RUSHERNot AvailableStart: 09-01-2024 End: 02-03-9160Iqrsqa outpatient visit 15 minutesMc Chatman DPM Work Phone: noms PODIATRYComment on above:Corns and callosities (Primary Dx); Diabetic polyneuropathy associated with type 2 diabetes mellitus ([facility]); Dermatophytosis of nail; Dystrophic nailStart: 09-01-2024 End: 32-99-4342Lyerbq flowsheetMc Chatman DPM Work Phone: noms PODIATRYStart: 09-01-2024 End: 39-69-0221Kxjiry flowsheetMc Chatman DPM Work Phone: noms PODIATRYStart: 08-26-2024 End: 49-07-2071Ivavnpvne department patient visitPritesh Giles MD Work Phone: [facility] Emergency DepartmentComment on above: Bilateral leg edema (Primary Dx); Venous stasis dermatitisStart: 08-11-2024 End: 75-84-5279nzgljiowugSPMUDXA H EL ZEINParkwood Hospital HospitalStart: 08-11-2024 End: 28-04-9919Mvwgfa outpatient new 30 minutesTim Ibrahim MD Work Phone: [facility]ITALComment on above: Constipation, unspecified constipation type (Primary Dx); Abdominal pain, unspecified abdominal locationStart: 08-08-2024 End: 35-42-5117kxtjdthsavWSYUEMcLaren Bay Region HospitalStart: 08-08-2024 End: 94-96-1306Asvdbxnqvg hospital visit by physicianMTHZ LaboratoryStart: 07-16-2024 End: 73-71-6017vlwdxtvndwIXCTNDUArchbold - [facility] Hospital AmbulatoryStart: 07-16-2024 End: 31-95-7623Tctqcj outpatient visit 25 minutesC[facility] Work Phone: [facility]virgin[facility] mason hospitalComment on above:CAD, multiple vessel; History of coronary artery bypass graft; History of PTCA; Mixed hyperlipidemia; Primary hypertension; Body mass index (BMI) of 32.0 to 32.9 in adult; Never smoked cigarettes; Type 2 diabetes mellitus without complication, with long-term current use of insulin (Multi); AnxietyStart: 07-03-2024 End: 81-41-9986Zevlwvrmx encounterTim Ibrahim MD Work Phone: [facility]OWNtart: 06-26-2024 End: 52-62-7958vwvncfvrzbGSLFPGMohawk Valley Psychiatric Center Ambulatory PPGStart: 06-26-2024 End: 12-90-6696Oedqwl outpatient visit 25 Luis Fernando Mckenzie MD Work Phone: [facility] Physicians Adult EndocrinologyComment on above:Type 2 diabetes mellitus with diabetic peripheral angiopathy without gangrene, with long-term current use of insulin ([facility]) (Primary Dx)Start: 06-10-2024 End: 72-76-9216Ksvwxefos department patient visitLEEANN CASTILLOFostoria City Hospital HospitalStart: 06-10-2024 End: 27-92-8061Ouyqrq outpatient visit 40 minutesLeeann Castillo TECHNOLOGY APPLICATIONS TEACHER-PROFESSOR OF SOCIOLOGY Work Phone: [facility] Physicians Internal Medicine/Kayden Morse MD Comment on above:Suspected cauda equina syndrome (Primary Dx); Neck pain; Bilateral low back pain with sciatica, sciatica laterality unspecified, unspecified chronicity; Incontinence of feces, unspecified fecal incontinence type; B12 deficiencyStart: 06-05-2024 End: 95-67-5979Qeecbqigt encounterPattie Patton Physicians General SurgeryStart: 06-02-2024 End: 55-58-9573Tftoud outpatient visit 25 minutesAnthony S Rusher DPM Work Phone: noms PODIATRYComment on above:Diabetic polyneuropathy associated with type 2 diabetes mellitus (CMS/HCC) (Primary Dx); Corns and callosities; Dystrophic nail; Dermatophytosis of nailStart: 06-02-2024 End: 65-53-5527Ukjswh flowsheetAnthony S Rusher DPM Work Phone: NOMS PODIATRYStart: 06-02-2024 End: 00-39-2729Thugwv flowsheetAnthony S Rusher DPM Work Phone: noms PODIATRYStart: 05-22-2024 End: 86-94-1288KicyeiHwmrsq Brown MD Work Phone: [facility] Physicians Adult EndocrinologyComment on above:Type 2 diabetes mellitus with diabetic peripheral angiopathy without gangrene, with long-term current use of insulin ([facility])Start: 05-21-2024 End: 95-44-5933Pkovkjbfx encounterNekun AvilaUpstate University Hospital Physicians General SurgeryStart: 05-20-2024 End: 32-03-9699Mwkjhrfah encounterJenn Zheng [facility] Physicians Internal Medicine/CACHORRO Jassotart: 05-19-2024 End: 55-65-9029Sampgr flowsheetAnthony S Rusher DPM Work Phone: NOMS PODIATRYStart: 05-19-2024 End: 08-18-0587Nytcjv flowsheetAnthony S Rusher DPM Work Phone: noms PODIATRYStart: 05-19-2024 End: 69-84-5281Bpxiia outpatient visit 15 minutesAnthony S Rusher DPM Work Phone: noms PODIATRYComment on above:Diabetic polyneuropathy associated with type 2 diabetes mellitus (CMS/HCC) (Primary Dx); Corns and callositiesStart: 05-01-2024 End: 79-96-6629Nbggzhhesham Leos DPM Work Phone: noms PODIATRYStart: 05-01-2024 End: 37-64-4652Crfkwfhesham Leos DPM Work Phone: NOMS PODIATRYStart: 05-01-2024 End: 82-80-7012Sropquf encounter procedureNini Leos DPM Work Phone: NOFK PODIATRYComment on above:Diabetic polyneuropathy associated with type 2 diabetes mellitus (CMS/HCC) (Primary Dx); Ulcer of right foot with fat layer exposed (CMS/HCC); Cellulitis of right footStart: 04-14-2024 End: 57-74-9881Tkogdztxw encounterNeva Abdi Physicians General SurgeryStart: 04-04-2024 End: 22-19-7599Lqzojhzjn encounterNeva IreneMercy HealthHeidieastpointe hospital Physicians General SurgeryStart: 04-03-2024 End: 94-08-3350Gxnbtz outpatient new 45 Reshma Prabhakar MD Work Phone: [facility] Physicians General SurgeryComment on above: Gallstones (Primary Dx)Start: 04-02-2024 End: 72-91-2998Ozvfeflp SupportPmh [address] [facility] - Cardiac RehabStart: 03-24-2024 End: 05-55-7221PptbeqFkxzmvpiMelba Helmeastpointe hospital Physicians Internal Medicine/CACHORRO Jassotart: 03-20-2024 End: 83-98-8941Ypkhjafl SupportPmh [address] [facility] - Cardiac RehabStart: 03-19-2024 End: 61-24-1770Lotljuuj SupportPmh [address] [facility] - Cardiac RehabStart: 03-17-2024 End: 10-09-0993Kqiazhwy SupportPmh [address] [facility] - Cardiac RehabStart: 03-15-2024 End: 23-06-0600Hjldhsbmu department patient visitSkyler Balbuena Facility:[facility]tart: 03-14-2024 End: 71-20-5112Bzijki outpatient visit 15 ivaLeeann Jonathan HEAD-QI Work Phone: [facility]/Kayden Morse MD Comment on above:Symptomatic cholelithiasis (Primary Dx); Abdominal pain, unspecified abdominal location; Constipation, unspecified constipation type; Primary hypertension; Type 2 diabetes mellitus with diabetic peripheral angiopathy without gangrene, with long-term current use of insulin ([facility])Start: 03-13-2024 End: 69-79-1986Oasuyumu SupportPmh [address] [facility] - Cardiac RehabComment on above:ArrivedStart: 03-12-2024 End: 06-42-4632Qzzjjzxz SupportPmh 00 [facility] - Cardiac RehabComment on above:ArrivedStart: 03-10-2024 End: 75-77-1227Aeegbbsf SupportPmh 00 [facility] - Cardiac RehabStart: 03-05-2024 End: 20-09-7581Nwclxcni SupportPmh 00 [facility] - Cardiac RehabStart: 03-03-2024 End: 08-13-4651Bcuqnupx SupportPmh 00 [facility] - Cardiac RehabStart: 02-27-2024 End: 62-37-9129Eekhaila SupportPmh 15 [facility] - Cardiac RehabStart: 02-25-2024 End: 52-82-6306Skhbqheg SupportPmh [address] [facility] - Cardiac RehabStart: 02-18-2024 End: 97-87-6279Zaymkvpf SupportPmh 15 [facility] - Cardiac RehabStart: 02-13-2024 End: 27-94-6754Svzxhlxc SupportPmh 15 [facility] - Cardiac RehabStart: 02-11-2024 End: 30-35-6839Grgxhzgv SupportPmh [address] [facility] - Cardiac RehabStart: 02-07-2024 End: 38-55-3611Fgkkomyc SupportSt. Francis Hospital 15 [facility] - Cardiac RehabStart: 02-06-2024 End: 15-78-2183Hcobyx outpatient visit 15 Kelley Blankenship MD Work Phone: [facility] Physicians Genito-Urinary SurgeonsComment on above:History of urinary retention (Primary Dx); Urinary retentionStart: 02-04-2024 End: 53-43-4737Qzyqqdbs SupportSt. Francis Hospital 15 [facility] - Cardiac RehabStart: 01-31-2024 End: 40-15-7986Algbjgbz SupportSt. Francis Hospital 30 [facility] - Cardiac RehabStart: 01-30-2024 End: 44-14-6519Malgrogv SupportSt. Francis Hospital 15 [facility] - Cardiac RehabStart: 01-23-2024 End: 71-05-1723Dtyeuuag SupportSt. Francis Hospital 15 [facility] - Cardiac RehabStart: 01-22-2024 End: 61-71-8646Yzqojz outpatient visit 25 Basilia Watts DO Work Phone: [facility] HospitalComment on above:CAD, multiple vessel; Obesity (BMI 30-39.9); Primary hypertension; Type 2 diabetes mellitus without complication, with long-term current use of insulin (Multi); Depression, unspecified depression type; Old RI (myocardial infarction); History of PTCA; Anxiety; Mixed hyperlipidemiaStart: 01-21-2024 End: 92-29-9853Swiqpvpf SupportSt. Francis Hospital 15 [facility] - Cardiac RehabStart: 01-17-2024 End: 79-02-4276Fnpvtpsi SupportSt. Francis Hospital 15 [facility] - Cardiac RehabStart: 01-16-2024 End: 05-40-0239Efbxjkbb SupportSt. Francis Hospital 15 [facility] - Cardiac RehabStart: 01-14-2024 End: 43-09-8086Zgohzwff SupportPm [address] [facility] - Cardiac RehabStart: 01-10-2024 End: 60-71-3656Gcvcxqms SupportPm [address] [facility] - Cardiac RehabStart: 01-09-2024 End: 72-10-5949Mybcnvyd SupportPm [address] [facility] - Cardiac RehabStart: 12-31-2023 End: 30-00-7129Muxukx outpatient visit 25 minutesKayden Morse MD Work Phone: [facility] Internal [facility]/Kayden Morse MD Comment on above:Type 2 diabetes mellitus with diabetic peripheral angiopathy without gangrene, with long-term current use of insulin ([facility]) (Primary Dx); Primary hypertension; Chronic diastolic CHF (congestive heart failure) ([facility]); Rotator cuff tear arthropathy of right shoulderStart: 12-31-2023 End: 88-61-7012Yftbquas SupportPm [address] [facility] - Cardiac RehabStart: 12-27-2023 End: 60-74-2619Zpmkdodt SupportPm 15 [facility] - Cardiac RehabComment on above:Type 2 diabetes mellitus with diabetic peripheral angiopathy without gangrene, with long-term current use of insulin ([facility]) (Primary Dx)Start: 12-26-2023 End: 04-24-0370AiownsIqpvnk Brown MD Work Phone: [facility] Physicians Adult EndocrinologyStart: 12-25-2023 End: 86-24-4939Zggcujqqo He Castillo APRN-PROFESSOR OF SOCIOLOGY Work Phone: [facility] Internal [facility]/Kayden Morse MD Start: 12-24-2023 End: 25-82-2752Ihlwcamp SupportPm [address] [facility] - Cardiac RehabStart: 12-19-2023 End: 68-27-2784Vssfoajc SupportPm [address] [facility] - Cardiac RehabStart: 12-17-2023 End: 55-18-9276Xbncqzzy SupportSt. Francis Hospital Cardiac Rehab Exercise [address] [place] [address] - Cardiac RehabStart: 12-14-2023 End: 69-93-4393Qysmbxvan encounterKayden Morse MD Work Phone: [facility]/Kayden Morse MD Start: 12-14-2023 End: 71-71-3607Ywtmef outpatient visit 15 minutesLeeann Castillo TECHNOLOGY APPLICATIONS TEACHER-PROFESSOR OF SOCIOLOGY Work Phone: [facility] Internal [facility]/Kayden Morse MD Comment on above:Type 2 diabetes mellitus with diabetic peripheral angiopathy without gangrene, with long-term current use of insulin ([facility]) (Primary Dx) Start: 12-11-2023 End: 90-44-9021Eqrosuseq therapyApolinar LIGHT Work Phone: [facility] - Diabetes and Nutrition EducationComment on above:Type 2 diabetes mellitus with diabetic peripheral angiopathy without gangrene, with long-term current use of insulin ([facility])Start: 80-69-2609Typcdy Briana Delong TECHNOLOGY APPLICATIONS TEACHER-PROFESSOR OF SOCIOLOGY Work Phone: [facility] Physicians Adult EndocrinologyComment on above:Type 2 diabetes mellitus with diabetic peripheral angiopathy without gangrene, with long-term current use of insulin ([facility]) (Primary Dx)Start: 13-64-7122Ikpcroznf Patricia Mckenzie MD Work Phone: pAppinionsrvy [facility] - Diabetes Start: 51-25-8012Cmlxfadyw encounterScanning Provider ExternalProMedica Physicians Adult EndocrinologyStart: 59-02-3252Yxzmlbjog encounterLeeann Castillo APRN-PROFESSOR OF SOCIOLOGY Work Phone: [facility]/Kayden Morse MD Start: 11-26-2023 End: 60-37-6179Nzmalp outpatient new 45 minutesAshley YOUNG Work Phone: [facility] Phys[facility] Genito-Urinary SurgeonsComment on above:Numbness in both legs; History of urinary retentionStart: 32-47-4374Rweeuvtjg encounterShobha Delong TECHNOLOGY APPLICATIONS TEACHER-PROFESSOR OF SOCIOLOGY Work Phone: [facility] Physicians Adult EndocrinologyStart: 49-19-5028Oasaooksg encounterLeeann Castillo TECHNOLOGY APPLICATIONS TEACHER-PROFESSOR OF SOCIOLOGY Work Phone: [facility] Internal [facility]/Kayden Morse MD Start: 11-15-2023 End: 04-63-4178Wdsevg outpatient new 45 minutesLeeann Castillo TECHNOLOGY APPLICATIONS TEACHER-PROFESSOR OF SOCIOLOGY Work Phone: [facility] Internal Medicine/Kayden Morse MD Comment on above:Type 2 diabetes mellitus with diabetic peripheral angiopathy without gangrene, with long-term current use of insulin (CMS-HCC) (Primary Dx); OSEI (dyspnea on exertion); Bilateral lower extremity edema; RUQ abdominal pain; Tendinopathy of left rotator cuff; Mixed hyperlipidemia; Screening PSA (prostate specific antigen); Primary hypertension; CAD, multiple vessel; ST elevation myocardial infarction (STEMI) of inferior wall (CMS-HCC); Moderate episode of recurrent major depressive disorder (CMS-HCC)Start: 11-01-2023 End: 35-14-5946Nrmvux follow up visit related to original Nickie Steen MD Work Phone: [facility] Physicians NeuroSurgeryComment on above: Numbness in both legs (Primary Dx); Lumbar painStart: 10-17-2023 End: 35-49-6820Ujofrg outpatient visit 25 minutesTesha Gavin TECHNOLOGY APPLICATIONS TEACHER-PROFESSOR OF SOCIOLOGY Work Phone: [facility] HospitalComment on above:CAD, multiple vessel (Primary Dx); Primary hypertension; Mixed hyperlipidemia; Ischemic cardiomyopathy; Type 2 diabetes mellitus without complication, with long-term current use of insulin (CMS/HCC); Obesity (BMI 30-39.9); Major psychotic depression, recurrent (CMS/HCC); Moderate episode of recurrent major depressive disorder (CMS/HCC)Start: 10-15-2023 End: 39-53-9937Kdjqtitcfdml care manage srvc 7 day dischargeVeronica De Jesus TECHNOLOGY APPLICATIONS TEACHER-FOUNDRY PATTERNMAKER Work Phone: [facility] Physicians Internal Medicine - Family MedicineComment on above:Status post lumbar laminectomy (Primary Dx); Chronic diastolic CHF (congestive heart failure) ([facility] [place]); ST elevation myocardial infarction (STEMI) of inferior wall ([facility]); Type 2 diabetes mellitus with diabetic peripheral angiopathy without gangrene, with long-term current use of insulin ([facility]); Primary hypertension; History of urinary retention; Other constipationStart: 93-99-3423Lby-patient / Non-[facility]At[facility] Med OutPt Work Phone: Start: 73-54-9682Lnn-patient / Non-visitAtrium Health [facility] Med OutPt Work Phone: Start: 43-22-1179Gixcvlequ encounterSrichmond Dominguez PA-C Work Phone: [facility] CardiologyComment on above: Hospital Follow-upStart: 09-19-2023 End: 86-07-5081Uzinpap encounter procedureYi YOUNG Work Phone: [facility] - Pain Management ClinicComment on above:Spinal stenosis of lumbar region without neurogenic claudicationStart: 61-72-2999IrwfoaSpzqn [facility] [place] Physicians Internal Medicine - Family MedicineComment on above:Type 2 diabetes mellitus with diabetic peripheral angiopathy without gangrene, with long-term current use of insulin ([facility])Start: 09-11-2023 End: 19-71-9470Ijokfv outpatient visit 15 minutesTom Paniagua DO Work Phone: [facility] Physicians Internal Medicine - Family MedicineComment on above:Spinal stenosis of lumbar region without neurogenic claudication (Primary Dx); Constipation, unspecified constipation typeStart: 82-28-3011KbkbfxChpy L Yuhas DO Work Phone: [facility] Internal Medicine - Family MedicineComment on above:Chronic diastolic CHF (congestive heart failure) ([facility])Start: 95-85-2761Fhylqnu encounter procedureTom Paniagua Work Phone: [phone]-KzijjNorth Shore Health 600 DO Work Phone: Start: 28-29-1669Lulzol outpatient visit 25 minutes Tom Paniagua Work Phone: [phone]-Xvuqd [facility] 250 DO Work Phone: Start: 54-63-1132blrkxtbgcgOp. Tom Johnsonerwin Facility:[id number]: 01-04-2023 End: 31-06-1353onkvcjkiojINYMZBSummersville Memorial Hospital Urgent CareStart: 01-04-2023 End: 57-88-5695Jdxqqh outpatient new 20 minutesRaSt. Elizabeth [facility] Work Phone: [facility] BucyrusComment on above:Cough, unspecified type (Primary Dx)Start: 09-27-2022 End: 10-53-9692ctxfqamfbvQozhc [employer] Other [employer] Other Start: 75-07-0451Srkolzeio encounterDavigamaliel [facility] SouthStart: 24-04-6013Egekko outpatient visit 25 minutesDagamaliel [facility] SouthStart: 07-06-2022 End: 20-36-6178vnpokvhslxTF Tom Paniagua Work Phone: [employer] Other Start: 07-06-2022 End: 47-67-1184Ewidlum encounter procedureDO Tom Paniagua Work Phone: [facility] LabStart: 04-03-2022 End: 56-04-9090hofdazwrrfZO TOM PANIAGUAFacility:J2Bnlpx: 12-19-2021 End: 88-23-2291anljhxfxfqKY JOHN YUHASFacility:J9Ghojo: 12-18-2021 End: 46-38-5218howslafprfOU CHAN GAVINFacility:K3Hnqah: 11-20-2021 End: 65-42-2446Turjwahug department patient visitPomerene Hospital-Emergency Care ServicesStart: 77-98-0133eqjlbyncnxYP JOHN YUHAS Facility:L9Kofsg: 09-09-2021 End: 86-65-7828urrirucgayHQ JOHN YUHASFacility:W8Hrrws: 08-02-2021 End: 65-28-9146onkmykqsoiIN JOHN YUHASFacility:X5Huqcl: 07-21-2021 End: 83-88-9638zhkceqxpsjKM JOHN YUHASFacility:D7Cpeul: 06-23-2021 End: 97-11-7775fbxrkqzctzWT JOHN YUHASFacility:S2Apity: 06-07-2021 End: 59-51-6383bkotrhobpyMU JOHN YUHASFacility:H6Iftnv: 04-15-2021 End: 29-33-5101fdrsbeyackSC JOHN YUHASFacility:O1Fdgyy: 04-08-2021 End: 02-73-5151wfjnvmyyuoTN JOHN YUHASFacility:N9Ptwsn: 05-20-2020 End: 80-81-9860Pkvejtsfgm hospital visit by physicianXr [facility] Elberta Work Phone: RadiologyComment on above:Primary osteoarthritis of right knee [M17.11]Start: 04-26-2020 End: 56-08-1951Ktdzqbwkjr hospital visit by physicianXr Efra 1 Work Phone: RadiologyComment on above:Nuclear senile cataract, unspecified laterality [H25.10]Start: 11-08-2018 End: 88-31-8894Zilzaeevqe and management of inpatientMcLean Hospital HospitalStart: 64-44-0448Iilrlwfhm department patient visitMcLean Hospital HospitalStart: 24-30-1168ImvqeabywyUOIQTLNeshoba County General Hospital PhysiciansStart: 07-17-2017 End: 08-49-2006UluybdcwaeBFBR E FENZLFacility:[facility] CENTERtart: 07-17-2017 End: 69-66-9854Itclmcgfr department patient visitMARK E FENZLFacility:[facility] Procedures DateProcedureProcedure DetailPerforming ClinicianStart: 86-92-8793Smpdewijptu Rodrigue Jj MD Work Phone: Start: 82-57-8722Rqnsn metabolic panel calcium total Ermias Blackwell MD Work Phone: Start: 75-70-6545YRWSS Ryan Blackwell MD Work Phone: Start: 96-68-8940Bmruh depression screening assessment Leeann Castillo TECHNOLOGY APPLICATIONS TEACHER-PROFESSOR OF SOCIOLOGY Work Phone: Start: 44-71-6232Upngs foot complete minimum 3 views Mc Chatman DPM Work Phone: Start: 76-47-3166Natdseuvcw glycosylated m0mPisbhvAlea Mckenzie MD Work Phone: start: 77-25-3910Wecdq dip stick/tablet rgnt auto w/o microscopyMichelle I Ernesto YOUNG Work Phone: Start: 29-00-2683VCKJOUZ POST VOID RESIDUALMichelle I Ernesto YOUNG Work Phone: Start: 63-40-9503Dsutwn-up visitFollow-upMOHAMAD Raad CABRAL ZEINStart: 76-18-4938GXU REFERRAL TO DIABETIC EDUCATIONAlea Mckenzie MD Work Phone: start: 60-68-2629Amfhsoxpawpgka aspir&/inj interm jt/burs w/o usMattja YOUNG Work Phone: Start: 48-31-1071Eprfb shoulder complete minimum 2 viewsMakim YOUNG Work Phone: Start: 30-47-8132Wssqf shoulder complete minimum 2 viewsMakim YOUNG Work Phone: Start: 25-98-1215Yesczg-up visitFollow-upMOHAMAD H EL ZEINStart: 80-27-4891Cccovduoll glycosylated l3mUdwhuoShobha Delong TECHNOLOGY APPLICATIONS TEACHER-PROFESSOR OF SOCIOLOGY Work Phone: start: 85-00-3319Qzniempvzqgq [Mass/volume] in Urine by Test stripShobha Delong TECHNOLOGY APPLICATIONS TEACHER-PROFESSOR OF SOCIOLOGY Work Phone: start: 19-21-7487Eununh-up visitFoow-LenaLIONEL CASTILLO Start: 08-12-5071Iymcv hip unilateral with pelvis 2-3 viewsMattja YOUNG Work Phone: Start: 31-38-8668Mhwhopgcwl examination knee 1/2 views Yi YOUNG Work Phone: Start: 34-80-4582Ybhia 1996 panel - Serum or Plasma Rodrigue Jj MD Work Phone: Start: 08-26-2024 End: 55-25-7352Wnrcepkmdkori metabolic panelPritesh Giles MD Work Phone: Start: 40-57-7134Tgvgysstbk exam chest 2 viewsPritesh Giles MD Work Phone: Start: 43-40-8897Zby routine ecg w/least 12 lds w/i&r Pritesh Giles MD Work Phone: Start: 49-93-5695Ppmrs panelPhil Sanders MD Work Phone: Start: 22-91-5063Ltnosvbhaf glycosylated d1hAzgkgjAlea Mckenzie MD Work Phone: start: 40-09-1458Waiyn depression screening assessment Leeann Castillo TECHNOLOGY APPLICATIONS TEACHER-PROFESSOR OF SOCIOLOGY Work Phone: Start: 59-31-6514Sdwie depression screening assessment [facility] RehabStart: 56-42-9837XVANJNY POST VOID RESIDUALMichael Yana Blankenship MD Work Phone: Start: 01-57-0907Qivxfah of percutaneous transluminal coronary angioplastyHistory of PTCRene Watts DO Work Phone: Start: 03-32-3309Gqfus depression screening assessment [facility] RehabStart: 28-93-2135Axhikmuinx glycosylated e1jPtoqga Jonathan TECHNOLOGY APPLICATIONS TEACHER-PROFESSOR OF SOCIOLOGY Work Phone: Start: 18-31-7946IWN REFERRAL TO DIABETIC EDUCATION Alea Mckenzie MD Work Phone: start: 43-23-2043Fwxnq dip stick/tablet rgnt auto w/o microscopyMemelvin YOUNG Work Phone: Start: 72-77-8272SCURCXR POST VOID RESIDUALAshley YOUNG Work Phone: Start: 97-06-3961Xegoa depression screening assessment Veronica De Jesus TECHNOLOGY APPLICATIONS TEACHER-FOUNDRY PATTERNMAKER Work Phone: Start: 61-29-2436Equnf depression screening assessment Gilles Dominguez PAMatiC Work Phone: Start: 78-74-6398Eiye bld gluc mntr dev cleared fda spec home useMechacha Peter PA-C Work Phone: Start: 17-50-6736Wlark depression screening assessment Tom Paniagua DO Work Phone: Start: 24-27-1660Fndkpgg of coronary artery bypass graftingHistory of coronary artery bypass graftTesha Gavin TECHNOLOGY APPLICATIONS TEACHER-PROFESSOR OF SOCIOLOGY Work Phone: Start: 64-63-6731Yomvg depression screening assessment Tom Paniagua DO Work Phone: Start: 03-90-4713Fwmdxjpahl exam chest 2 viewsRachel Nuha Oakes CNP Work Phone: Start: 61-48-4356Dgkcejrdojyx [Mass/volume] in Urine by Test stripEtta Oakes CNP Work Phone: Start: 01-69-7593Qrzhbznhbs examination knee 3 views Alcon FONTENOTC Work Phone: Start: 00-13-2889EDBXZFMYW PATIENTABDEMERSON HOSPITAL Start: 96-64-5497Lssyw of free thyroxineABDULHARLEM HOSPITAL CENTEREK SADSELECT SPECIALTY HOSPITALtart: 31-28-7500Qeenv of thyroid stimulating hormone tshABDPROVIDENCE HOSPITAL SADSELECT SPECIALTY HOSPITALtart: 21-87-9594Cujmf count complete auto&auto difrntl wbcABDULMALEK SADSELECT SPECIALTY HOSPITALtart: 47-61-3335Wphbvnneyx glycosylated s3hEYZQVTHRIG [facility]TRIUM HEALTHtart: 92-78-3684Glviw panelABDMEMORIAL HEALTH SYSTEM MARIETTA MEMORIAL HOSPITALPATSY [facility] Start: 48-21-6649Uouby 1996 panel - Serum or PlasmaXr 1 Work Phone: Start: 19-83-0521QEYC GENERALABDBAILEY ATRIUM HEALTHtart: 12-22-4397Dznv screen class list aABDBAILEY ATRIUM HEALTHtart: 25-18-8602NSPX CODE ABDBAILEY A[facility]UM HEALTHtart: 32-00-6524TB CONSULT TO [facility] Start: 04-73-5410FQXIIFFFHCVKYJIEG A[facility]UM HEALTHtart: 33-24-8861ELXWQZM STATUS (DIRECT)MELODIE A[facility]IUM HEALTHrt: 78-47-2807BWFQKSC CESSATION EDUCATIONABDBAILEY ATRIUM HEALTHtart: 11-39-7692WMLGO SIGNSABDBAILEY ATRIUM HEALTHrt: 84-57-3077FCJBMVD STATUS (DIRECT)MELODIE [facility] Insanert: 15-40-1265Dcegltl of coronary artery bypass graftingS/P CABG (coronary artery bypass graft)Nini Leos DPM Work Phone: Start: 05-05-2011H/O: surgeryOther states following surgery of eye and adnexaXr 1 Work Phone: Arthroplasty of kneeJohn L Yuhas Work Phone: Biopsy of skinJohn L Yuhas Work Phone: Cataract surgeryJohn L Yuhas Work Phone: Coronary artery bypass graftJohn L Yuhas Work Phone: History of coronary artery bypass graftingHistory of coronary artery bypass graftJohn L Yuhas Work Phone: History of coronary artery bypass graftingHistory of coronary artery bypass graft x 3Comment on above:5 vessel CABG 2009 at [facility] History of coronary artery bypass graftingHistory of coronary artery bypass graftGita Watts DO Work Phone: History of coronary artery bypass graftingHistory of coronary artery bypass graftWilldevinm S Mac DO Work Phone: History of operative procedure on kneeHistory of bilateral knee replacementYi YOUNG Work Phone: History of percutaneous transluminal coronary angioplastyHistory of PTCAWilliam S Mac DO Work Phone: History of percutaneous transluminal coronary angioplastyHistory of PTCAPaige Paystrup SENIOR OFFICE SUPPORT ASSISTANT SOSA Work Phone: History of percutaneous transluminal coronary angioplastyHistory of PTCAWilliam S Mac DO Work Phone: Operation on mouthJohn L Yuhas Work Phone: Repair of musculotendinous cuff of shoulderJohn L Yuhas Work Phone: Surgical procedure on eye properJohn L Yuhas Work Phone: Total colonoscopyJohn L Yuhas Work Phone: Plan of Treatment DateCare ActivityDetailAuthorStart: 26-99-4214NLkU,Tdap and Td Vaccines (2 - Td or Tdap)DTaP,Tdap and Td Vaccines (2 - Td or Tdap)[facility] SystemStart: 35-22-4617UQqA/Tdap/Td Vaccines (2 - Td or Tdap)DTaP/Tdap/Td Vaccines (2 - Td or Tdap)[facility] CampusStcabins: 81-01-6480Qrkoe microalbumin profileDTaP,Tdap,Td Vaccine (2 - Td or Tdap)[facility] 2032 Respiratory Syncytial Virus (RSV) or age 60 yrs+ (1 - 1-dose 75+ series)Respiratory Syncytial Virus (RSV) or age 60 yrs+ (1 - 1-dose 75+ series)[facility]: 03-05-8584YPO Vaccine (1 - 1-dose 75+ series)RSV Vaccine (1 - 1-dose 75+ series)[facility]: 73-57-4066Iytjd panelLipid ScreeningUC Healthtart: 06-10-4226Hlvzo panelLipidsBon Secours Kettering Health PrebleStart: 03-55-1164Emfmsgnj ScreeningDiabetes Screening [facility]art: 06-60-8405Qwpip BMI ScreeningAdult BMI ScreeningSalem City Hospital SystemStart: 31-14-5825Psjypzv ScreeningTobacco ScreeningSalem City Hospital SystemStart: 23-44-5440Icrzx BMI ScreeningAdult BMI ScreeningProMercy Health Clermont Hospital SystemStart: 94-61-3683Rfgpxlv ScreeningTobacco ScreeningSalem City Hospital SystemStart: 77-08-0363Koqta BMI ScreeningAdult BMI ScreeningSalem City Hospital SystemStart: 27-80-8467Yxqjiqqzc for malignant neoplasm of colonCleveland Clinic [facility] Start: 86-91-3287Xwiaigy ScreeningTobacco ScreeningSalem City Hospital SystemStart: 63-22-6674Ldoml BMI ScreeningAdult BMI ScreeningSalem City Hospital SystemStart: 55-37-6229Czfmcgo ScreeningTobacco ScreeningSalem City Hospital SystemStart: 03-24-2026 End: 89-73-5792Xergwuj encounter ylnxqvkbk56/22/2026 10:00 AM EDT Office Visit [place] [id number] [facility] [address] [place] [address] Gita Watts DO [address] [facility] [address] [place], [place] [phone] [facility] HospitalStart: 80-24-6172Cmrkd BMI ScreeningAdult BMI ScreeningSalem City Hospital SystemStart: 01-08-1975Cgxuyphbko Screening Depression ScreeningSalem City Hospital SystemStart: 89-98-8715Ttnd Risk Screening Fall Risk ScreeningSalem City Hospital SystemStart: 07-15-2026Medicare Annual Wellness VisitMedicare Annual Wellness VisitSalem City Hospital SystemStart: 13-81-5898Qmksbny ScreeningTobacco ScreeningMcCullough-Hyde Memorial Hospitalca [facility] SystemStart: 36-73-8909Heztb BMI ScreeningAdult BMI ScreeningSalem City Hospital SystemStart: 77-47-6565Dryhsix ScreeningTobacco ScreeningProMedica Health SystemStart: 15-23-4071Codpt BMI ScreeningAdult BMI ScreeningProMedica Health SystemStart: 11-86-3791Rjdotvg ScreeningTobacco ScreeningProBluffton Hospitalca [facility] SystemStart: 12-21-2025 End: 22-41-3517Caevfnh encounter aqksbhjvz25/20/2026 10:00 AM EDT Office Visit [facility]/Kayden Morse MD [address] [facility] [address] [place] [phone] Leeann Castillo, TECHNOLOGY APPLICATIONS TEACHER-PROFESSOR OF SOCIOLOGY [address] [facility] [address] [place] [address] [facility]/CACHORRO Jassotart: 12-14-2025 End: 85-22-6864Zwlenxb encounter qhrfkyinf16/13/2026 3:15 PM EDT Office Visit [facility] [address] [place] [address] [place] [address] Nathan Blankenship MD [address] [place] [address] [facility]-Urinary SurgeonsStart: 08-73-2599Ebnyj BMI ScreeningAdult BMI Screening [facility] SystemStart: 12-10-2025 End: 16-39-9547Kkfhbugfx specific antigen, diagnosticProMedica Work Phone: Comment on above:1 Occurrences starting 12/10/2024 until 12/10/2025Expected: 12/10/2025 (Approximate), Expires: 11/10/2026Start: 24-83-2560Hdfbzoj ScreeningTobacco ScreeningProMedica Health SystemStart: 68-58-1770Gyuvr BMI ScreeningAdult BMI ScreeningProMedica Health SystemStart: 30-75-1360Svuxjnz ScreeningTobacco ScreeningProMedica Health SystemStart: 69-72-9567Qdywd BMI ScreeningAdult BMI ScreeningProMedica Health SystemStart: 46-56-8763Myyjq BMI ScreeningAdult BMI ScreeningSalem City Hospital SystemStart: 60-61-0295Xoulzfl ScreeningTobacco ScreeningMcCullough-Hyde Memorial Hospitalca [facility] SystemStart: 36-79-8651Tmgcg BMI ScreeningAdult BMI ScreeningSalem City Hospital SystemStart: 80-21-7426Vnyihiy ScreeningTobacco ScreeningSalem City Hospital SystemStart: 23-02-3203Qqdst screening for proteinUrine MicroalbuminSalem City Hospital System Start: 77-27-6152Ddvhk BMI ScreeningAdult BMI ScreeningSalem City Hospital [facility] Start: 04-89-5231Kmmiom Use: CardiovascularStatin Use: CardiovascularSalem City Hospital SystemStart: 09-21-2275Ghaado Use: DiabeticStatin Use: DiabeticSalem City Hospital SystemStart: 08-21-2025 End: 73-77-3309Fabiivk encounter heenlinlg67/19/2025 10:45 AM EST Office Visit [facility] [address] [place] [address] Mc Chatman DPSwapnil [address] [place] [address] NOMAlia Rao PodiatryStart: 23-44-8812Swqhs BMI ScreeningAdult BMI ScreeningSalem City Hospital SystemStart: 21-93-2486Vckrbjg ScreeningTobacco ScreeningSalem City Hospital SystemStart: 93-94-4071Tfezi panelLipidsWellmont Health SystemStart: 07-22-2025 End: 67-00-0681Tynlgvn encounter nbasdcbdk03/19/2025 11:00 AM EST Office Visit [facility] A Department of [facility] [address] [place] [phone] Alea Mckenzie MD [address] [place] [address] [facility] Hospitaltart: 84-78-8573Kmxky BMI ScreeningAdult BMI ScreeningSalem City Hospital SystemStart: 77-23-7451Gjkywhx ScreeningTobacco ScreeningProMedica Health SystemStart: 06-19-2025 End: 46-96-0312Tpsgwhg encounter ppeuyxxix92/17/2025 10:20 AM EDT Office Visit [facility]/Kayden Morse MD [address] [facility] [address] [place] [phone] Leeann Castillo, TECHNOLOGY APPLICATIONS TEACHER-PROFESSOR OF SOCIOLOGY [address] [facility] [address] [place] [address] [facility]/CACHORRO Jassotart: 06-13-2025 End: 42-71-1617Brvbiqm encounter avkwhmord21/11/2025 3:20 PM EDT Appointment [facility] [place] [facility] [address] [facility] [id number] Cognitive impairment, mild, so stated [G31.84][facility] Radiology MRIComment on above:Cognitive impairment, mild, so stated [G31.84] Start: 06-11-2025 End: 05-15-7596Zpxlrco encounter hzghyqbkd50/09/2025 11:10 AM EDT Office Visit [facility] [address] [place], [place] [phone] Bobbi Steen MD [address] [place] [phone] [facility] Start: 26-70-2989Qaxrd BMI ScreeningAdult BMI ScreeningProMedica Health System Start: 46-78-1271Ihpfzqzwfz ScreeningDepression ScreeningProMedica Health System Start: 33-41-1899Fgbjted ScreeningTobacco ScreeningProMedica Health SystemStart: 06-10-2025 End: 26-24-8996Mehzkhf encounter procedureNOMS Barataria PodiatryComment on above: ArrivedStart: 05-14-2025 End: 91-88-2777Pgxdlzzje (Vitamin B12) [Mass/volume] in Serum or PlasmaVITAMIN B12 Lab Routine Memory loss Expected: 05/14/2025, Expires: 08/13/2025[facility] Work Phone: Comment on above:Expected: 05/14/2025, Expires: 08/13/2025Start: 05-14-2025 End: 13-46-3401Wufgwyytjusnog [Moles/volume] in Serum or PlasmaMETHYLMALONIC ACID Lab Routine Memory loss Expected: 05/14/2025, Expires: 08/13/2025leveland ClinicComment on above:Expected: 05/14/2025, Expires: 08/13/2025Start: 05-12-2025 End: 57-51-7164Jxiljfa encounter /09/2025 10:30 AM EDT Office Visit [facility] [address] [place] [address] Jesse Desouza MD [address] [place] [address] 101[address] [place] [address] [facility] Angelestart: 81-36-3188Swrzhrbkq vaccinationOhio Valley Surgical [facility] Start: 04-16-2025 End: 17-37-0053Wbpsrxu encounter yermejhpa04/14/2025 12:45 PM EDT Appointment [facility] - MRI Imaging [address] [place] [address] [facility] - MRI ImagingStart: 04-09-2025 End: 18-44-8569Hncnakcdc to same day surgery [facility] -SurgeryComment on above:COLONOSCOPY DIAGNOSTIC / SCREENINGStart: 04-09-2025 End: 02-16-4044TvyjbclnxudFfzGnluhi Health SystemStart: 13-58-6776Jlnbfhfpjs hospital visit by physicianMer[facility] -SurgeryStart: 04-03-2025 Adult BMI ScreeningAdult BMI ScreeningFormerly Memorial Hospital of Wake Countytart: 04-03-2025 Tobacco ScreeningTobacco ScreeningFormerly [facility] Hospital of Wake Countytart: 03-31-2025 End: 00-02-2725Sqavmyx encounter fszwufqwp30/29/2025 4:15 PM EDT Office Visit [facility] [address] [place] [phone] Mc Chatman, DPM [address] [place], [place] [phone] [facility]SA[facility] PODIATRYStart: 03-24-2025 End: 88-77-0791SG Lumbar spine WO contrastMR lumbar spine without contrast Imaging Routine Numbness in both legs Status post lumbar spinal fusion Expected: 03/24/2025, Expires: 03/24/2026[facility] Work Phone: Comment on above:Expected: 03/24/2025, Expires: 03/24/2026Start: 03-19-2025 End: 64-66-4961Oqdlwza aminotransferase [Enzymatic activity/volume] in Serum or Plasma by With P-5'-PAlanine Aminotransferase Lab Routine ASHD (arteriosclerotic heart disease) History of PTCA Mixed hyperlipidemia Expected: 03/19/2025, Expires: 03/19/2026UnPaulding [facility] Hospital Work Phone: Comment on above:Expected: 03/19/2025, Expires: 03/19/2026Start: 03-19-2025 End: 09-13-5165Mvkyxapjs aminotransferase [Enzymatic activity/volume] in Serum or Plasma by With P-5'-PAspartate Aminotransferase Lab Routine ASHD (arteriosclerotic heart disease) History of PTCA Mixed hyperlipidemia Expected: 03/19/2025, Expires: 03/19/2026UnPaulding County Hospital Work Phone: Comment on above:Expected: 03/19/2025, Expires: 03/19/2026Start: 03-19-2025 End: 14-44-8241Yvdln metabolic 2000 panel - Serum or PlasmaBasic Metabolic Panel Lab Routine ASHD (arteriosclerotic heart disease) Shortness of breath Expected: 03/19/2025, Expires: 03/19/2026[facility] Work Phone: Comment on above:Expected: 03/19/2025, Expires: 03/19/2026Start: 03-19-2025 End: 03-19-2026 reactive protein [Mass/volume] in Serum or Plasma by High sensitivity methodC-Reactive Protein, High Sensitivity Lab Routine ASHD (arteriosclerotic heart disease) Shortness ofbreath Expected: 03/19/2025, Expires: 03/19/2026[facility] Work Phone: Comment on above:Expected: 03/19/2025, Expires: 03/19/2026Start: 03-19-2025 End: 46-71-8758Iaddn 1996 panel - Serum or PlasmaLipid Panel Lab Routine ASHD (arteriosclerotic heart disease) History of PTCA Mixed hyperlipidemia Expected: 03/19/2025, Expires: 03/19/2026[facility] Service Area Work Phone: Comment on above:Expected: 03/19/2025, Expires: 03/19/2026Start: 03-19-2025 End: 60-51-0667Vsgeffgniph peptide B [Mass/volume] in BloodB-Type Natriuretic Peptide Lab Routine ASHD (arteriosclerotic heart disease) Shortness of breath Expected: 03/19/2025, Expires: 03/19/2026[facility] Work Phone: Comment on above:Expected: 03/19/2025, Expires: 03/19/2026Start: 03-19-2025 End: 38-31-9671Hkfozzr encounter iiqnpegak28/17/2025 11:20 AM EDT Office Visit [facility] [address] [facility] [address] [place] [address] Gita Watts DO [address] [facility] [address] [place] [address] [facility]Start: 03-17-2025 End: 82-52-8010Bvvgjjz encounter procedureProMedica Physicians Internal Medicine/CACHORRO Jassotart: 75-37-7352Uqywh BMI ScreeningAdult BMI Screening [facility] Political Student SystemStart: 52-25-8783Vnxdxfljhp ScreeningDepression Screening [facility] SystemStart: 03-11-2025 End: 83-06-6190Ouesadl encounter /09/2025 2:00 PM EDT Consult [facility] [address] [facility] [place] [place] [address] Carolyn Richards, SENIOR OFFICE SUPPORT ASSISTANT SOSA [address] [place] [address] Arthritis of right shoulder (Primary Dx); Pre-op exam; Type 2 diabetes mellitus with diabetic peripheral angiopathy without gangrene, with long-term current use of insulin (HCC); Mixed hyperlipidemia ; Primary hypertension ; History of PTCA; Constipation, unspecified constipation type; Dep ression, unspecified depression typeNOMS MAB FMComment on above:Arthritis of right shoulder (Primary Dx); Pre-op exam; Type 2 diabetes mellitus with diabetic peripheral angiopathy without gangrene, with long-term current use of insulin (HCC); Mixed hyperlipidemia ; Primary hypertension ; History of PTCA; Constipation, unspecified constipation type; Depression, unspecified depression typeStart: 03-10-2025 End: 35-93-7868AIY W Auto Differential panel - BloodCBC and differential Lab Routine Pre-op exam Expected: 03/10/2025 (Approximate), Expires: 03/10/2026[facility] Work Phone: Comment on above:Expected: 03/10/2025 (Approximate), Expires: 03/10/2026Start: 03-10-2025 End: 66-95-9254Sedesekeynhfy metabolic 2000 panel - Serum or PlasmaComprehensive metabolic panel Lab Routine Pre-op exam Expected: 03/10/2025 (Approximate), Expires: 03/10/2026[facility] HealthcareComment on above:Expected: 03/10/2025 (Approximate), Expires: 03/10/2026Start: 03-10-2025 End: 00-99-7320Lhqtaviesc A1c/Hemoglobin.total in BloodHemoglobin A1c Lab Routine Type 2 diabetes mellitus with diabetic peripheral angiopathy without gangrene, with long-term current use of insulin (HCC) Expected: 03/10/2025 (Approximate), Expires: 03/10/2026[facility] HealthcareComment on above:Expected: 03/10/2025 (Approximate), Expires: 03/10/2026Start: 03-04-2025 End: 37-52-3213Wxyojah encounter yevdcrcte79/02/2025 1:45 PM EDT Procedure Visit [facility] [address] [place] [address] Mc Chatman, DPM [address] [place], [place] [phone] [facility]IATRYStart: 02-23-2025 End: 56-01-6065Lrplxph encounter procedureNOMS PODIATRYComment on above: ArrivedStart: 08-11-8442Wvvgs BMI ScreeningAdult BMI ScreeningProMercy Health Clermont Hospital SystemStart: 05-63-9145Owyzunn ScreeningTobacco ScreeningAvita Health System Health System Start: 01-14-2025 End: 46-67-8994Tarmuvc encounter procedureProMedica Adult Endocrinology, A Department of [facility] HospitalStart: 06-32-6812Qgiyvjq ScreeningTobacco ScreeningSalem City Hospital SystemStart: 43-34-0431Zliep BMI ScreeningAdult BMI ScreeningSalem City Hospital SystemStart: 60-82-5262Uivquhfqev ScreeningDepression ScreeningSalem City Hospital SystemStart: 71-20-0492Mutf Risk ScreeningFall Risk ScreeningSalem City Hospital SystemStart: 27-77-0649Bbvbvxa ScreeningTobacco ScreeningSalem City Hospital SystemStart: 54-41-4402Lqmfp BMI ScreeningAdult BMI ScreeningSalem City Hospital SystemStart: 12-10-2024 End: 95-08-6670Gqwbnkr encounter tzdwoajeb91/09/2025 3:45 PM EDT Office Visit [facility] [address] [place] [address] [facility] [place] [address] Nithin Orozco I, PA [address] [place], [place] [phone] [facility] Genito-Urinary SurgeonsStart: 21-49-8858Fcejv BMI ScreeningAdult BMI Screening ProMgrove hill memorial hospitala Health SystemStart: 12-02-2024 End: 71-34-4516Ttywbwz encounter procedureNOMS FH PODIATRYComment on above: ArrivedStart: 60-12-4468Ayxnvii ScreeningTobacco ScreeningProMedica Health SystemStart: 11-28-2024 End: 99-64-6579Zpwuasm encounter hiasghfey97/28/2025 10:15 AM EDT Office Visit [facility] [address] [place] [address] Yi Kim PA [address] [facility] [address] [place] [address] Acute pain of left shoulder (Primary Dx)[facility] Comment on above:Acute pain of left shoulder (Primary Dx)Start: 69-56-8246Bheda BMI ScreeningAdult BMI ScreeningProBluffton Hospitalca Health SystemStart: 91-43-0839Xuvgvqv ScreeningTobacco ScreeningProBluffton Hospitalca Health SystemStart: 44-98-2779Bvdxhn Use: DiabeticStatin Use: DiabeticSalem City Hospital SystemStart: 11-20-2024 End: 08-59-2983Nwoldsq encounter uszcyijig29/20/2025 3:00 PM EDT Office Visit [place] [address] [facility] [address] [place] [address] Tim Nunez MD [address] [place] [address] [facility] 11-19-2024 End: 92-01-8726Hvsrjwp encounter procedureDIGESTIVE VALLEY [facility]IEW [facility]OSPITALtart: 11-19-2024 End: 88-25-7195Sxsmkak encounter xhmfdnetj00/19/2025 11:20 AM EDT Office Visit [facility] Internal Medicine/Kayden Morse MD [address] [facility] [address] [place] [address] Leeann Castillo, SONIDO-PROFESSOR OF SOCIOLOGY [address] [facility] [address] [place] [address] [facility] Internal Medicine/CACHORRO Jassotart: 34-75-1787Godyg BMI ScreeningAdult BMI ScreeningProMercy Health Clermont Hospital SystemStart: 11-14-2024 End: 89-49-0829Lnxndmj encounter /14/2025 10:30 AM EDT Office Visit [facility] [address] [place] [address] Yi Kim PA [address] [facility] [address] [place] [address] [facility]OPAEDICSStart: 11-06-2024 End: 90-07-2640Vwujoylfl whbyqap0711/06/2024 10:30 AM EST Support Visit [facility] - Diabetes and Nutrition Education [address] [place] [address] Apolinar Mckenzie [facility] - Diabetes and Nutrition EducationStart: 08-17-0293Bgljl BMI ScreeningAdult BMI ScreeningProMercy Health Clermont Hospital SystemStart: 86-13-2185Orfjttq ScreeningTobacco ScreeningProMercy Health Clermont Hospital SystemStart: 10-31-2024 End: 42-08-1739Hcuygyo encounter procedureNOMS FB ORTHOPAEDICSComment on above: Acute pain of right knee (Primary Dx); Left hip painStart: 10-22-2024 End: 82-47-0249Ntkgxya encounter dpzdnisbk61/19/2025 3:00 PM EST Office Visit [facility] [address] [place] [address] Tim Nunez MD [address] [place] [address] [address] [place] [address] [facility]: 10-17-2024 End: 85-49-7986Zsyjsbn encounter procedureProMedica Adult Endocrinology, A Department of [facility] Hospitaltart: 75-46-9185Ytjqn BMI ScreeningAdult BMI ScreeningProMedica Health SystemStart: 91-41-5750Zexeaaelno Screening Depression ScreeningProMedica Health SystemStart: 62-38-1371Tgsz Risk Screening Fall Risk ScreeningProMedica Health SystemStart: 22-95-4787Wyxarwu Screening Tobacco ScreeningProMedica Health SystemStart: 10-15-2024 End: 67-47-0675Esyfccr encounter yikjumhoy84/12/2025 10:30 AM EST Office Visit [facility] [address] [place] [address] [place] [address] Nithin Orozco PA [address] [place] [address] [facility] SurgeonsStart: 61-41-8452TifdvlhcrramhbpaEgtjxvllicfvczMolwfmhzyw [facility] ClevelandStart: 10-02-2024 End: 10-82-3718Hlhmhkp encounter yatjozeud79/30/2025 7:30 AM EST Appointment [facility] - Total Rehab [address] [place] [address] ArrivedProMedica [facility] Comment on above:ArrivedStart: 09-26-2024 End: 03-96-6732Xfdpomn encounter procedureNOMS FB ORTHOPAEDICSComment on above: Acute pain of right knee (Primary Dx); Traumatic hematoma of right knee, subsequent encounterStart: 28-59-3284Qtijd BMI ScreeningAdult BMI ScreeningProMedica Health SystemStart: 13-82-3919Xbmuiav ScreeningTobacco ScreeningProMedica Health SystemStart: 98-01-2698Lsndstkquq ScreeningDepression ScreeningProMedica Health SystemStart: 27-36-8934Uwdig BMI ScreeningAdult BMI ScreeningProMedica Health SystemStart: 28-93-1333Plnenll ScreeningTobacco ScreeningProMedica Health SystemStart: 09-19-2024 End: 55-26-8045Yuuymox encounter zbiytmbbu05/17/2025 9:30 AM EST Office Visit [facility] [address] [place] [address] [address] [place] [address] Tim Nunez MD [address] [place] [address] [facility] PARKStart: 09-12-2024 End: 12-57-5079Qzfswmb encounter zfapeftcb11/10/2025 9:00 AM EST Office Visit [facility] [address] [address] Yi Kim, PA [address] [facility] [address] [place] [address] [facility]THOPAEDICSStart: 58-29-7710Kzrgu BMI ScreeningAdult BMI ScreeningProMercy Health Clermont Hospital SystemStart: 66-42-4465Qvkzrhevoe Screening Depression ScreeningSalem City Hospital SystemStart: 36-33-4991Gxbg Risk Screening Fall Risk ScreeningSalem City Hospital SystemStart: 43-31-6935Hzwyhrd Screening Tobacco ScreeningSalem City Hospital SystemStart: 74-89-4117Pbejplv Directive DiscussionAdvance Directive DiscussionUC Healthtart: 01-01-2025Medicare Advantage Annual Wellness VisitMedicare Advantage Annual Wellness VisitUC Healthtart: 09-01-2024 End: 99-41-5102Hxwfifa encounter pddncaefd93/30/2024 2:15 PM EST Procedure Visit [facility] [address] [place] [address] Mc Chatman, KAYE [address] [place] [address] [facility]ODIATRYStart: 40-61-6437Vmwcj BMI ScreeningAdult BMI Screening [facility] SystemStart: 40-87-5954Xvkvfuqbzm ScreeningDepression Screening [facility] SystemStart: 54-00-5209Vihy Risk ScreeningFall Risk Screening [facility] SystemStart: 37-16-0821Sqmpxrq ScreeningTobacco Screening [facility] SystemStart: 29-89-9141Bchuvjyx foot examinationDiabetic Foot ExamProMercy Health Clermont Hospital SystemStart: 07-30-2024 End: 72-20-1965Fkjsnlh encounter agrwvbpjg65/27/2024 10:30 AM EST Office Visit [facility] [address] [place] [address] [facility] [place] [address] Nithin Orozco I, HECTOR [facility] [address] [place] [address] [facility]ito-Urinary SurgeonsStart: 07-16-2024 End: 10-49-1082Dotayzx encounter /13/2024 11:20 AM EST Office Visit [facility] [address] [facility] [address] [place] [address] Gita Watts DO [address] [facility] [address] [place] [address] [facility]: 07-03-2024 End: 29-46-4301Ljzpogs encounter ykhiuhaml10/31/2024 1:00 PM EDT Office Visit [facility] [address] [facility] [address] [place] [address] [phone] Physicians General SurgeryStart: 06-23-2024 End: 87-23-3926Kiespduse to same day surgery rpgekc0806/23/2024 9:45 AM EDT - 06/23/2024 11:45 AM EDT Surgery [facility] -Surgery [address] [facility] [place] [address] Lucille Prabhakar MD [address] [place] [address] DAVINCI CHOLECYSTECTOMY [97227 (CPT )][facility] -SurgeryComment on above:DAVINCI CHOLECYSTECTOMY [51837 (CPT )]Start: 06-23-2024 End: 15-04-1394Dkonjxtsrqg surg cholecystectomyDAVINCI CHOLECYSTECTOMY Gallstones 06/23/2024 9:45 AM EDTBORLANDO HEALTH [facility] BABIES SURGERYStart: 77-30-6829Duuoskakgx hospital visit by itregadcw26/21/2024 9:45 AM EDT Hospital [facility] [address] [facility] [place] [address] Lucille Prabhakar MD [address] [place] [address] [facility] -SurgeryStart: 86-08-2695Satrnfvgg for malignant neoplasm of [facility] CenterStart: 06-10-2024 End: 82-23-0221Ycvepfb encounter nzcnryamr93/08/2024 1:45 PM EDT Office Visit [facility] [address] [place] [address] Shobha Delong, TECHNOLOGY APPLICATIONS TEACHER-PROFESSOR OF SOCIOLOGY [address] [place] [address] [facility] Adult EndocrinologyStart: 06-10-2024 End: 79-18-8330Cglpvao encounter lrssougly44/08/2024 11:20 AM EDT Office Visit [facility] Internal [facility]/Kayden Morse MD [address] [facility] [address] [place] [phone] Leeann Castillo APRN-PROFESSOR OF SOCIOLOGY [address] [facility] [address] [place] [address] [facility] Internal [facility]/CACHORRO Jassotart: 06-09-2024 End: 50-28-4769Abdoswl encounter oggyovnqf05/07/2024 10:45 AM EDT Procedure visit [facility] -Pre Admission Testing [address] [place] [address] [phone] [facility] -Pre Admission TestingStart: 06-02-2024 End: 49-03-9222Ynrdwcq encounter pzcpaiwjz01/30/2024 2:15 PM EDT Procedure Visit [facility] [address] [place] [address] Mc Chatman, DPM [address] [place], [place] [address] [facility] PODIATRYStart: 05-22-2024 End: 10-52-8201Vdaltql encounter ffzvyoldk67/19/2024 1:00 PM EDT Office Visit [facility] [address] [place] [address] [address] [place] [address] Lucille Prabhakar MD [address] [place] [address] [facility] General SurgeryStart: 05-14-2024 End: 64-48-8583Jleyyqk encounter zmgpjswuz49/11/2024 4:15 PM EDT Office Visit [facility] [address] [place] [address] [place] [address] Nithin Orozco I PA [address] [place] [address] [facility]ito-Urinary SurgeonsStart: 05-12-2024 End: 99-58-4539Uykivjoeu to same day surgery nonbfr2305/12/2024 7:30 AM EDT - 05/12/2024 9:30 AM EDT Surgery [facility] -Surgery [address] [facility] [place] [address] Lucille Prabhakar MD [address] [facility] [address] [place] [address] DAVINCI CHOLECYSTECTOMY [97414 (CPT )][facility] -SurgeryComment on above:DAVINCI CHOLECYSTECTOMY [64400 (CPT )]Start: 05-12-2024 End: 59-23-5695Eqmdeuwdako surg cholecystectomyDAVINCI CHOLECYSTECTOMY Gallstones 05/12/2024 7:30 AM EDTBORLANDO [facility]ALTH [facility] BABIES SURGERYStart: 56-67-3583Vqchfslqjy hospital visit by lmanuuspe46/09/2024 7:30 AM EDT Hospital Encounter [facility] -Surgery [address] [facility] [place] [address] Lucille Prabhakar MD [address] [place] [address] [facility] -SurgeryStart: 93-33-7466MRRYV-19 Vaccine ()COVID-19 Vaccine ( season)Bon [facility]Start: 81-02-8297Xjohi-19 Vaccine ()Covid-19 Vaccine ()[facility]: 52-03-2463Noihcyehp vaccinationWayne HealthCare Main CampusStart: 05-01-2024 End: 47-57-1549Snqekqv encounter /29/2024 10:45 AM EDT Office Visit [facility] [address] [place] [address] Nini Leos, DPM [address] [place], [place] [address] ArrivedNOTWO RIVERS [facility] PODIATRYComment on above:ArrivedStart: 04-29-2024 End: 42-61-0507Islzbpf encounter ihjmdoyji87/27/2024 10:45 AM EDT Procedure visit [facility] -Pre Admission Testing [address] [facility] [place] [address] [phone] [facility] -Pre Admission TestingStart: 04-22-2024 End: 14-69-0026Wxmceue encounter wzpojwmir87/20/2024 3:30 PM EDT [facility] [address] [place] [address] MltAfwfet Physicians Internal Medicine - Family MedicineStart: 08-15-2024Medicare Annual Wellness VisitMedicare Annual Wellness VisitProMercy Health Clermont Hospital SystemStart: 27-50-5582Fvxemttod vaccinationFlu vaccine (#1)Bon [facility]Start: 04-03-2024 End: 11-84-6264Atuqpmx encounter ubflzcura95/01/2024 1:00 PM EDT Office Visit [facility] [address] [facility] [address] [place] [address] Lucille Prabhakar MD [address] [place] [address] [facility] General SurgeryStart: 04-02-2024 End: 76-45-2921Lhxpznrr Zluyekf1404/02/2024 2:00 PM EDT Clinical Support [facility] Cardiac Rehab [address] [place] [address] [facility] - Cardiac RehabStart: 03-31-2024 End: 77-30-2152Qduzihud Nsywgtl9903/31/2024 2:00 PM EDT Clinical Support [facility] Cardiac Rehab [address] [place] [address] [facility] - Cardiac RehabStart: 03-27-2024 End: 18-72-8442Yscizqro Avmyhur0003/27/2024 2:00 PM EDT Clinical Support [facility] Cardiac Rehab [address] [place] [address] [facility] - Cardiac RehabStart: 03-26-2024 End: 43-37-3302Prooqfij Pncmvxw6303/26/2024 2:00 PM EDT Clinical Support [facility] Cardiac Rehab [address] [place] [address] [facility] - Cardiac RehabStart: 03-24-2024 End: 64-21-8644Unkvfofs Fyyasqs4803/24/2024 2:00 PM EDT Clinical Support [facility] Cardiac Rehab [address] [place] [address] [facility] - Cardiac RehabStart: 03-20-2024 End: 80-97-0974Qngttjgb Ihmojkb5703/20/2024 2:00 PM EDT Clinical Support [facility] Cardiac Rehab [address] [place] [address] [facility] - Cardiac RehabStart: 03-19-2024 End: 74-11-4405Xapefuqc Nuiwdqa7903/19/2024 2:00 PM EDT Clinical Support [facility] Cardiac Rehab [address] [place] [address] [address] [facility] - Cardiac RehabStart: 03-17-2024 End: 71-22-7549Guxsltkl Kfmrhxh4803/17/2024 2:00 PM EDT Clinical Support [facility] Cardiac Rehab [address] [place] [address] [facility] - Cardiac RehabStart: 03-14-2024 End: 26-51-7042Tyxufag encounter ebdjphazj83/12/2024 11:20 AM EDT Office Visit [facility]/Kayden Morse MD [address] [place] [address] Leeann Castillo APRN-PROFESSOR OF SOCIOLOGY [address] [facility] [address] [place] [address] Jose Danieledicnarcisa [facility]icians Internal Medicine/CACHORRO Jassotart: 03-13-2024 End: 50-64-1637Ipupjqwf Crahmgg3403/13/2024 2:00 PM EDT Clinical Support [facility] Cardiac Rehab [address] [place] [address] [facility] - Cardiac RehabStart: 03-12-2024 End: 50-64-0791Ajyiqiit Rpuoqab1203/12/2024 2:00 PM EDT Clinical Support [facility] Cardiac Rehab [address] [place] [address] [facility] - Cardiac RehabStart: 03-10-2024 End: 70-24-8547Sfbtqozg Gqcdoga6103/10/2024 2:00 PM EDT Clinical Support [facility] - Cardiac Rehab [address] [place] [address] [address] [facility] - Cardiac RehabStart: 03-05-2024 End: 60-58-4011Xlzxdntw Ycimmmq8303/05/2024 2:00 PM EDT Clinical Support [facility] Cardiac Rehab [address] [place] [address] [facility] - Cardiac RehabStart: 03-03-2024 End: 10-87-9688Hhzzxjgk Ascdluu3703/03/2024 2:00 PM EDT Clinical Support [facility] - Cardiac Rehab [address] [place] [address] [facility] - Cardiac RehabStart: 02-28-2024 End: 36-34-6296Vpglfjob SupportMercy Health St. [facility] - Cardiac RehabStart: 02-27-2024 End: 17-69-4610Tksjiumu SupportMercy Health St. [facility] - Cardiac RehabStart: 02-25-2024 End: 67-73-8027Aeidqdev SupportMercy Health St. [facility] - Cardiac RehabStart: 02-21-2024 End: 56-09-5804Pgvhkxfx SupportMercy Health St. [facility] - Cardiac RehabStart: 02-20-2024 End: 18-72-9928Bqjakrgu SupportMercy Health St. [facility] - Cardiac RehabStart: 02-18-2024 End: 69-24-3570Zxmljeci SupportMercy Health St. [facility] - Cardiac RehabStart: 02-14-2024 End: 75-72-6779Wjuptphc SupportMercy Health St. [facility] - Cardiac RehabStart: 02-13-2024 End: 27-26-8411Ajvkccsn SupportMercy Health St. [facility] - Cardiac RehabStart: 02-11-2024 End: 04-27-6572Xunkwbml SupportMercy Health St. [facility] - Cardiac RehabStart: 02-07-2024 End: 54-69-3701Rbbyusdg SupportMercy Health St. [facility] - Cardiac RehabStart: 02-06-2024 End: 99-23-0565Udaqrzq encounter opgomljqx10/05/2024 3:15 PM EDT Office Visit [facility] [address] [place] [phone] Nathan Blankenship MD [address] [place] [address] [facility] Genito-Urinary SurgeonsStart: 02-06-2024 End: 67-53-6778Thuvhokr SupportMercy Health St. [facility] - Cardiac RehabStart: 02-04-2024 End: 11-75-0844Vfqchqmh SupportMercy Health St. [facility] - Cardiac RehabStart: 01-31-2024 End: 67-49-3359Tqscnnrh Azoawny9601/31/2024 9:15 AM EDT Clinical Support [facility] Cardiac Rehab [address] [place] [address] [address] [facility] - Cardiac RehabStart: 01-30-2024 End: 17-86-9521Gmfesidi Irukryn4201/30/2024 9:15 AM EDT Clinical Support [facility] Cardiac Rehab [address] [place] [address] [address] [facility] - Cardiac RehabStart: 01-24-2024 End: 86-27-5873Xiglmbdi Gtrhvbj7901/24/2024 9:15 AM EDT Clinical Support [facility] - Cardiac Rehab [address] [place] [address] [address] [facility] - Cardiac RehabStart: 01-23-2024 End: 51-90-4629Ltvkmlqt Nuhzwtp1901/23/2024 9:15 AM EDT Clinical Support [facility] Cardiac Rehab [address] [place] [address] [address] [facility] - Cardiac RehabStart: 01-22-2024 End: 63-68-9365Ifmtlxg encounter stdyvfahh74/21/2024 1:50 PM EDT Office Visit [facility] [address] [place] [address] Gita Watts [address] [place] [address] [facility]: 01-21-2024 End: 53-64-3028Evooeqml Hhiohtw7901/21/2024 9:15 AM EDT Clinical Support [facility] Cardiac Rehab [address] [place] [address] [facility] - Cardiac RehabStart: 01-17-2024 End: 66-86-5635Hrashatr Ndvgnnp7901/17/2024 9:15 AM EDT Clinical Support [facility] Cardiac Rehab [address] [place] [address] [address] [facility] - Cardiac RehabStart: 01-16-2024 End: 32-58-9800Dxpwkzdu Kvyvgbu1201/16/2024 9:15 AM EDT Clinical Support [facility] Cardiac Rehab [address] [place] [address] [facility] - Cardiac RehabStart: 01-14-2024 End: 73-20-7859Ivnctzah Cohahdi5701/14/2024 9:15 AM EDT Clinical Support [facility] Cardiac Rehab [address] [place] [address] [address] [facility] - Cardiac RehabStart: 01-10-2024 End: 57-84-6324Yjkbiwvu Wcdhyqz7901/10/2024 9:15 AM EDT Clinical Support [facility] - Cardiac Rehab [address] [place] [address] [facility] - Cardiac RehabStart: 01-09-2024 End: 97-33-4602Cvmpgcmh Hpqclib7801/09/2024 9:15 AM EDT Clinical Support [facility] Cardiac Rehab [address] [place] [address] [facility] - Cardiac RehabStart: 01-07-2024 End: 47-33-4315Wotrosab Okipjsg7001/07/2024 9:15 AM EDT Clinical Support [facility] - Cardiac Rehab [address] [place] [address] [facility] - Cardiac RehabStart: 01-03-2024 End: 99-78-9799Xdahxdg encounter uxpwmqjbd57/02/2024 12:45 PM EDT Appointment [facility] - [facility] [address] [place] [address] [facility] RehabStart: 01-03-2024 End: 01-37-8338Lfusvuha Cfrhyvk0401/03/2024 9:15 AM EDT Clinical Support [facility] [address] [place] [address] [facility] - Cardiac RehabStart: 01-02-2024 End: 73-62-6001Rfpkisdb Epssyld0601/02/2024 9:15 AM EDT Clinical Support [facility] [address] [place] [address] [facility] - Cardiac RehabStart: 12-31-2023 End: 19-09-7363Qihrukx encounter kjoeaewmf70/29/2024 11:30 AM EDT Office Visit [facility]/Kayden Morse MD [address] [place] [id number] Kayden Morse MD [address], [id number] [facility]/CACHORRO Jassotart: 12-31-2023 End: 30-85-5806Dsdrhsal Eqmdwyf6212/31/2023 9:15 AM EDT Clinical Support [facility] [address] [place] [address] [address] [facility] - Cardiac RehabStart: 12-27-2023 End: 59-02-6875Reuatrbk Ovsuoxl6112/27/2023 9:15 AM EDT Clinical Support [facility] Cardiac Rehab [address] [place] [address] [facility] - Cardiac RehabStart: 12-26-2023 End: 38-67-7841Vuieicdp Opgidqe9912/26/2023 9:15 AM EDT Clinical Support [facility] Cardiac Re[facility] [address] [place] [address] [facility] - Cardiac RehabStart: 12-24-2023 End: 97-35-2603Cjyelxdb Xmejmxd4012/24/2023 9:15 AM EDT Clinical Support [facility] Cardiac Rehab [address] [place] [address] [address] [facility] - Cardiac RehabStart: 12-20-2023 End: 94-28-3686Tlajpawn Vztsppm5512/20/2023 9:15 AM EDT Clinical Support [facility] Cardiac Re[facility] [address] [place] [address] [facility] - Cardiac RehabStart: 12-19-2023 End: 02-17-6815Qobmienc Puluuve5112/19/2023 9:15 AM EDT Clinical Support [facility] - Cardiac Rehab [address] [place] [address] [facility] - Cardiac RehabStart: 12-16-2023 End: 88-58-8710Ufktgvr aminotransferase [Enzymatic activity/volume] in Serum or Plasma by With P-5'-PAlanine Aminotransferase Lab Routine Mixed hyperlipidemia Expected: 12/16/2023 (Approximate), Expires: 10/17/2024UnPaulding [facility] Work Phone: Comment on above:Expected: 12/16/2023 (Approximate), Expires: 10/17/2024Start: 12-16-2023 End: 35-29-8303Nnqlptqnu aminotransferase [Enzymatic activity/volume] in Serum or Plasma by With P-5'-PAspartate Aminotransferase Lab Routine Mixed hyperlipidemia Expected: 12/16/2023 (Approximate), Expires: 10/17/2024UnPaulding [facility] Work Phone: Comment on above:Expected: 12/16/2023 (Approximate), Expires: 10/17/2024Start: 12-16-2023 End: 75-71-4508Gwlwd 1996 panel - Serum or PlasmaLipid Panel Lab Routine Mixed hyperlipidemia Expected: 12/16/2023 (Approximate), Expires: 10/17/2024UnPaulding [facility] Work Phone: Comment on above:Expected: 12/16/2023 (Approximate), Expires: 10/17/2024Start: 12-14-2023 End: 63-98-5736Xtibclu encounter procedureProMedica Physicians Internal Medicine/CACHORRO Jassotart: 12-11-2023 End: 89-44-4999Tvoyhqwrx mxervrz8012/11/2023 3:00 PM EDT Support Visit [facility] Diabetes and Nutrition Education [address] [place] [address] Apolinar Mckenzie LD [facility] Diabetes and Nutrition EducationStart: 12-06-2023 End: 13-61-9565Iawcxlp encounter /04/2024 7:00 AM EDT Appointment [facility] Nuclear MedIcine [address] [place] [address] NvnKknzthC[facility] Clinic [facility] MedI[facility] Start: 96-77-5345Yibkcrpvlg hospital visit by uztatebfg02/04/2024 7:00 AM EDT Hospital Encounter [facility] Nuclear [facility] [address] [place] [address] TjlCdtbtjCleveland Clinic Hill[facility] Nuclear MedIcineStart: 12-03-2023 End: 26-09-7127Jfqshoe encounter vptqququp02/01/2024 9:00 AM EDT Appointment [facility] - Total Rehab [address] [place] [address] [place] [address] RnhUwwovsGood Shepherd Healthcare System - Total RehabStart: 11-26-2023 End: 05-75-8238Uqjwfum encounter jqmcyfzir03/25/2024 10:00 AM EDT Office Visit [facility] [address] [place] [address] Ashley Rodriguez PA [address] [place] [address] [facility] Genito-Urinary SurgeonsStart: 11-23-2023 End: 36-72-2622UY Biliary ducts and Gallbladder Views for patency of biliary structures and ejection fraction W sincalide and W radionuclide IVNM hepatobiliary system imaging with pharmacologic agent Imaging Routine Biliary colic Expected: 11/23/2023, Expires: 11/22/2024[facility] Work Phone: Comment on above:Expected: 11/23/2023, Expires: 11/22/2024Start: 11-15-2023 End: 06-65-9680Zvmrnjo encounter procedureProMedica Physicians Internal Medicine/Kayden MorseMDComment on above:Lumbar painStart: 15-19-3219Jlbph panel Lipid ScreeningUC Healthtart: 11-07-2023 End: 38-18-8385Ryhsvce encounter ypvpqptjk68/06/2024 10:45 AM EST Office Visit [facility] [address] [place] [address] Alea Mckenzie MD [address] [place], [place] [phone] (Work) [facility] Adult EndocrinologyStart: 11-01-2023 End: 52-84-7923YY Lumbar spine Views AP W right bending and W left bendingX-ray spine lumbar flexion and extension only 2 to 3 views Imaging Routine Lumbar pain Expected: 11/01/2023, Expires: 10/31/2024[facility] Work Phone: Comment on above:Expected: 11/01/2023, Expires: 10/31/2024Start: 11-01-2023 End: 79-54-1849Gmhcuqs encounter logsjztwj02/29/2024 1:30 PM EST Office Visit [facility] [address] [place] [address] Bobbi Steen MD [address] [place] [address] [facility] Start: 10-24-2023 End: 41-37-5670Nwgdw metabolic 2000 panel - Serum or PlasmaBasic Metabolic Panel Lab Routine CAD, multiple vessel Primary hypertension Expected: 10/24/2023 (Ap proximate), Expires: 10/17/2024[facility] Work Phone: Comment on above:Expected: 10/24/2023 (Approximate), Expires: 10/17/2024Start: 55-37-1864Qpshx screening for proteinOhioHealthStart: 21-52-3800BedgogpkwKettering Health Hamiltontart: 51-26-1706YzbesxhzwKettering Health Hamiltontart: 87-72-6194Vynufbbt to cardiac rehabilitation program [facility]art: 58-01-3693Bkpniwsw admissionKettering Health Hamiltontart: 10-06-2023 End: 63-53-2635EipfeklxdKettering Health Hamiltontart: 78-51-2104Hvwehxij to psychiatristKettering Health Hamiltontart: 09-27-2023 End: 63-02-9809Dorkykd encounter qrchmtivv53/25/2024 10:00 AM EST Office Visit [facility] Medicine [address] [place] [address] Tom Paniagua, DO [address] [place] [address] [facility] - Family MedicineStart: 01-66-8057Touhihvz admissionKettering Health Hamiltontart: 38-06-3301Vgtxdmpi to clinical allergistKettering Health Hamiltontart: 09-20-2023 End: 22-93-5624Ykpeplz encounter udoqicytp94/18/2024 11:45 AM EST Office Visit [facility] [address] [place] [address] Alea Mckenzie MD [address] [place], [place] [phone] (Work) [facility] Adult EndocrinologyStart: 91-43-5038KNV, Provider: Bertha Tovar, Status: Pen, Time: 3:00 PMFUV, Provider: Bertha Tovar, Status: Pen, Time: 3:00 PM- [facility] [address] [facility] Work Phone: Start: 09-19-2023 End: 10-54-5968Eqxpxcy encounter xdgdbflud61/17/2024 1:00 PM EST Office Visit [facility] [address] [place] [address] Yi Damian PA [address] [place] [address] Yari Peter PA-C [address] [place] [address] [facility] Start: 95-95-6542Qywboyo Directive DiscussionAdvance Directive Discussion [facility]: 83-73-9857Majxlc Wellness Visit (Medicare Advantage) Annual Wellness Visit (Medicare Advantage)[facility]: 65-11-1193XJFUO-19 Vaccine ( season)COVID-19 Vaccine ( season)[facility]Start: 59-18-6448Tmmfaokcr vaccination [facility]Start: 22-44-3423Bvptamln ScreeningDiabetes ScreeningCleveland Clinic [facility] Start: 12-25-7135Sskvwohnvx A1c xpegfgauhlnI0YHtrwLujvdhRetla: 35-30-2522Xtxi risk assessmentFalls Risk AssessmentOhHealthStart: 11-20-4594Zshgaudvkfml 65+ years Vaccine (2 of 2 - PCV)Pneumococcal 65+ years Vaccine (2 of 2 - PCV)[facility]: 01-02-6506Ccarngrdqxnj Vaccine: 65+ (2 of 2 - PCV) Pneumococcal Vaccine: 65+ (2 of 2 - PCV)[facility]: 07-02-2020 Hemoglobin A1c measurementDiabetes: Hemoglobin P1VMzyzgfnbgqPaulding County HospitalStart: 20-34-4293Japzbdnya B surface antibody levelLDL Cholesterol [facility]: 54-12-2835Ccfvjixvvf A1c oetzgpahjvrV0M test (Diabetic or Prediabetic)[facility]: 23-43-2689Mhlmzlgjl B Vaccines (1 of 3 - Risk 3-dose series)Hepatitis B Vaccines (1 of 3 - Risk 3-dose series) [facility]: 43-61-2679ROE High Risk: (Elderly (60+) or Population) (1 - Risk 60-74 years 1-dose series)RSV High Risk: (Elderly (60+) or Population) (1 - Risk 60-74 years 1-dose series) [facility]: 40-37-6668DRU patients and/or patients aged 60+ years (1 - 1-dose 60+ series)RSV patients and/or patients aged 60+ years (1 - 1-dose 60+ series)[facility] Start: 28-76-7113JBB Vaccine (1 - Risk 60-74 years 1-dose series)RSV Vaccine (1 - Risk 60-74 years 1-dose series)[facility]: 29-43-0108Oaepxiqb specific antigen measurementProstate Cancer Screening DiscussionCleveland Clinic Union Hospital Start: 22-61-9824Iixqhjcrrxcd vaccinationPneumococcal Vaccine (2 of 2 - PCV) [facility]: 92-20-6261Gnnfopchjbnu Vaccine: 50+ (2 of 2 - PCV)Pneumococcal Vaccine: 50+ (2 of 2 - PCV)[facility]: 38-98-3576Ekktxbqcmvqr Vaccine: 65+ Years (2 - PCV)Pneumococcal Vaccine: 65+ Years (2 - PCV)[facility]: 10-97-6665Zuyulabtbnjv Vaccine: 65+ Years (2 of 2 - PCV)Pneumococcal Vaccine: 65+ Years (2 of 2 - PCV) [facility]: 83-46-8381Wvfqdzgptjyy Vaccine: Age 65+ (2 - PCV)Pneumococcal Vaccine: Age 65+ (2 - PCV)[facility]Start: 2007 Administration of herpes zoster vaccineZoster Vaccines (1 of 2)[facility] HospitalStart: 38-01-8847Ylkcxzikkgaqrz of varicella zoster vaccineZoster (Shingles) Vaccine (1 of 2)[facility] SystemStart: 26-89-2719Mgevpldzk for malignant neoplasm of colonFlexible sigmoidoscopyDayton Osteopathic HospitalStart: 98-26-9166Dyoeyyka vaccine (1 of 2) Shingles vaccine (1 of 2)[facility]: 86-97-1078Mjdsuhzi Vaccine (1 of 2)Shingrix Vaccine (1 of 2)[facility]: 55-35-4365Hputau Vaccines (1 of 2)Zoster Vaccines (1 of 2)[facility]: 42-74-2722Iecawpue specific antigen measurementProstate Cancer Screening DiscussionUC Healthtart: 44-09-4949Jxyfzndcv for malignant neoplasm of colonUC Healthtart: 72-83-4151XCsF/Tdap/Td Vaccines (1 - Tdap) DTaP/Tdap/Td Vaccines (1 - Tdap)[facility]: 54-95-6526NUfJ,Tdap and Td Vaccines (1 - Tdap)DTaP,Tdap and Td Vaccines (1 - Tdap)[facility]: 86-21-0013LGaV/Tdap/Td vaccine (1 - Tdap) DTaP/Tdap/Td vaccine (1 - Tdap)[facility]: 1976 Hepatitis A Vaccines (1 of 2 - Risk 2-dose series)Hepatitis A Vaccines (1 of 2 - Risk 2-dose series)[facility]: 40-36-0939Fukim microalbumin profileDTaP,Tdap,Td Vaccine (1 - Tdap)[facility]: 16-06-5613Tzrli screening for proteinDiabetes: Urine Protein ScreeningUnWayne HealthCare Main Campus: 41-97-4526Blowo BMI Follow Up PlanAdult BMI Follow Up PlanFormerly Memorial Hospital of Wake Countytart: 08-66-0463Jeprcr PCP Team Chronic Disease VisitAnnual PCP Team Chronic Disease VisitUC Healthtart: 1975 Anxiety ScreeningAnxiety ScreeningUC Healthtart: 01-40-1407Uazyzxbdtt ScreeningDepression ScreeningUC Healthtart: 11-04-6777Amoxsftcw C screeningOhioHealthStart: 37-44-1758BSW screeningHIV ScreeningOhioHealthStart: 60-74-6425Jrfhhtfbvf MonitoringDepression MonitoringWellmont Health System Start: 59-75-4613Kwlujudpzj screening using PHQ-9 (Patient Health Questionnaire 9) scoreDepression Screening (PHQ-2/9)[facility] HospitalStart: 41-37-3668Gfrhdjnw foot examinationOhioHealthStart: 80-92-6871Eryylxnx screeningOhHolzer Medical Center – JacksonStart: 79-84-5449Ruwkhld and physical examination, annual for health maintenance Wellness VisitOhioHealthStart: 52-25-4899TGR Vaccines (1 of 1 - Standard series) MMR Vaccines (1 of 1 - Standard series)[facility]: 91-63-8285HVEVO-19 Vaccine (#1)COVID-19 Vaccine (#1)[facility] HospitalStart: [address] Creatinine measurementCreatinine [facility]: 50-94-5879Mreukzla screeningDiabetic Ophthalmology ExamOhio Valley Surgical Hospital Start: 81-61-9997Jasix panelLipid PanelAshtabula County Medical Center: 01-21-1958Medicare Annual Wellness VisitMedicare Annual Wellness Visit (AWV) [facility]: 52-89-1261Cadikjlam measurementPotassium LevelUnWayne HealthCare Main Campus: 22-58-6825Enbfdnfe specific antigen measurementPSA LevelDayton Osteopathic HospitalStart: 68-35-6247Wkqftkigi for malignant neoplasm of colonOhHolzer Medical Center – JacksonStart: 93-01-4430Xxzkzre vaccinationTetanus: Every 10yrs OhioHealthaPTT in Platelet poor plasma by Coagulation assayPremier Health End: 32-56-3924Cuots metabolic 2000 panel - Serum or PlasmaBasic Metabolic Panel Lab Routine Essential hypertension 1 Occurrences starting 09/29/2024 until [facility] Work Phone: Comment on above:1 Occurrences starting 09/29/2024 until 09/29/2025 End: 15-22-8243O-peptideC-peptide Lab Routine Type 2 diabetes mellitus with diabetic peripheral angiopathy without gangrene, with long-term current use of insulin ([facility]) 1 Occurrences starting 12/07/2023 until 12/06/2024[facility] Work Phone: comment on above:1 Occurrences starting 12/07/2023 until 12/06/2024ardiopulmonary rehabilitationCardiopulmonary rehabilitation Cardiac Services Ordered: 12/24/2023roMedicaComment on above:Ordered: 12/24/2023ardiopulmonary rehabilitationCardiopulmonary rehabilitation Cardiac Services Ordered: 12/27/2023roMedicaComment on above:Ordered: 12/27/2023 Cardiopulmonary rehabilitationCardiopulmonary rehabilitation Cardiac Services Ordered: 12/31/2023roMedicaComment on above:Ordered: 12/31/2023ardiopulmonary rehabilitationCardiopulmonary rehabilitation Cardiac Services Ordered: 01/09/2024roMedicaComment on above:Ordered: 01/09/2024ardiopulmonary rehabilitationCardiopulmonary rehabilitation Cardiac Services Ordered: 01/10/2024roMedicaComment on above:Ordered: 01/10/2024ardiopulmonary rehabilitationCardiopulmonary rehabilitation Cardiac Services Ordered: 01/14/2024roMedicaComment on above:Ordered: 01/14/2024ardiopulmonary rehabilitationCardiopulmonary rehabilitation Cardiac Services Ordered: 02/07/2024roMedicaComment on above:Ordered: 02/07/2024ardiopulmonary rehabilitationCardiopulmonary rehabilitation Cardiac Services Ordered: 01/16/2024roMedicaComment on above:Ordered: 01/16/2024ardiopulmonary rehabilitationCardiopulmonary rehabilitation Cardiac Services Ordered: 02/11/2024roMedicaComment on above:Ordered: 02/11/2024ardiopulmonary rehabilitationCardiopulmonary rehabilitation Cardiac Services Ordered: 01/17/2024roMedicaComment on above:Ordered: 01/17/2024ardiopulmonary rehabilitationCardiopulmonary rehabilitation Cardiac Services Ordered: 01/21/2024roMedicaComment on above:Ordered: 01/21/2024ardiopulmonary rehabilitationCardiopulmonary rehabilitation Cardiac Services Ordered: 02/14/2024roMedicaComment on above:Ordered: 02/14/2024ardiopulmonary rehabilitationCardiopulmonary rehabilitation Cardiac Services Ordered: 01/23/2024roMedicaComment on above:Ordered: 01/23/2024ardiopulmonary rehabilitationCardiopulmonary rehabilitation Cardiac Services Ordered: 01/30/2024roMedicaComment on above:Ordered: 01/30/2024ardiopulmonary rehabilitationCardiopulmonary rehabilitation Cardiac Services Ordered: 01/31/2024roMedicaComment on above:Ordered: 01/31/2024ardiopulmonary rehabilitationCardiopulmonary rehabilitation Cardiac Services Ordered: 02/04/2024roMedicaComment on above:Ordered: 02/04/2024ardiopulmonary rehabilitationCardiopulmonary rehabilitation Cardiac Services Ordered: 02/18/2024roMedicaComment on above:Ordered: 02/18/2024ardiopulmonary rehabilitationCardiopulmonary rehabilitation Cardiac Services Ordered: 02/25/2024roMedicaComment on above:Ordered: 02/25/2024ardiopulmonary rehabilitationCardiopulmonary rehabilitation Cardiac Services Ordered: 02/27/2024roMedicaComment on above:Ordered: 02/27/2024ardiopulmonary rehabilitationCardiopulmonary rehabilitation Cardiac Services Ordered: 03/03/2024roMedicaComment on above:Ordered: 03/03/2024ardiopulmonary rehabilitationCardiopulmonary rehabilitation Cardiac Services Ordered: 03/05/2024roMedicaComment on above:Ordered: 03/05/2024ardiopulmonary rehabilitationCardiopulmonary rehabilitation Cardiac Services Ordered: 03/10/2024roMedicaComment on above:Ordered: 03/10/2024ardiopulmonary rehabilitationCardiopulmonary rehabilitation Cardiac Services Ordered: 03/12/2024roMedicaComment on above:Ordered: 03/12/2024ardiopulmonary rehabilitationCardiopulmonary rehabilitation Cardiac Services Ordered: 03/13/2024roMedicaComment on above:Ordered: 03/13/2024ardiopulmonary rehabilitationCardiopulmonary rehabilitation Cardiac Services Ordered: 03/17/2024roMedicaComment on above:Ordered: 03/17/2024ardiopulmonary rehabilitationCardiopulmonary rehabilitation Cardiac Services Ordered: 03/19/2024roMedicaComment on above:Ordered: 03/19/2024ardiopulmonary rehabilitationCardiopulmonary rehabilitation Cardiac Services Ordered: 03/20/2024roMedicaComment on above:Ordered: 03/20/2024ardiopulmonary rehabilitationCardiopulmonary rehabilitation Cardiac Services Ordered: 04/02/2024roMedicaComment on above:Ordered: 04/02/2024ardiopulmonary rehabilitationCardiopulmonary rehabilitation Cardiac Services Ordered: 12/17/2023roMedicaComment on above:Ordered: 12/17/2023ardiopulmonary rehabilitationCardiopulmonary rehabilitation Cardiac Services Ordered: 12/19/2023roMedicaComment on above:Ordered: 12/19/2023 End: 15-60-6623CP TotalCK Total Lab Routine On statin therapy 1 Occurrences starting 12/27/2023 until 12/26/2024[facility] Work Phone: Comment on above:1 Occurrences starting 12/27/2023 until 12/26/2024 End: 54-10-2209Fbnildydobmxmj vitamin b-12Vitamin B12 Lab Routine B12 deficiency 1 Occurrences starting 06/10/2024 until 06/10/2025[facility] Work Phone: Comment on above:1 Occurrences starting 06/10/2024 until 06/10/2025ECG 12 leadECG 12 lead ECG Routine Pre-op exam 03/11/2025 2:38 PM EDTNOMS HealthcareEKG 12 LeadEKG 12 Lead ECG STAT 08/26/2024 11:14 AM [facility] End: 47-10-8156FehrokAjrcvh Lab Routine Burning tongue 1 Occurrences starting 06/19/2025 until 06/19/2026[facility] Work Phone: Comment on above:1 Occurrences starting 06/19/2025 until 06/19/2026INR in Platelet poor plasma by Coagulation assayPremier Health End: 23-62-6310Utqtcnowyylm - Albumin: Creatinine Urine RatioMicroalbumin - Albumin: Creatinine Urine Ratio Lab Routine Type 2 diabetes mellitus with diabetic peripheral angiopathy without gangrene, with long-term current use of insulin ([facility]) 1 Occurrencesstarting 10/17/2024 until 10/17/2025[facility] Work Phone: comment on above:1 Occurrences starting 10/17/2024 until 10/17/2025MR Brain WO contrastMRI BRAIN W QUANT WO IVCON Radiology Routine Cognitive impairment, mild, so stated Ordered: 05/14/2025leveland ClinicComment on above:Ordered: 05/14/2025MR Unspecified body region 3D post processingMRI 3D BRAIN QUANT Radiology Routine Memory loss Cognitive impairment, mild, so stated Ordered: 05/14/2025leveland ClinicComment on above:Ordered: 05/14/2025Patient EducationSelect [facility] Specialty [facility] Work Phone: Patient referralSelect Medical Specialty Hospital [facility] Work Phone: Prostate specific Ag [Mass/volume] in Serum or Plasma Prostatic specific antigen, diagnostic Lab Routine Urinary retention 12/10/2024 4:21 PM [facility] InstituteProthrombin time (PT)[facility] End: 53-83-8467Agxlycvk duplex lower extremity venous bilateralBon [facility]-FairhillComment on above:One Time for 1 Occurrences starting 08/26/2024 until 08/26/2024 Immunizations Immunization DateImmunizationNotesCare KjbkvuuoGfwifhtg30-32-4102thvambp toxoid, reduced diphtheria toxoid, and acellular pertussis vaccine, adsorbedCamille [facility]10-01-2012influenza virus vaccine, unspecified formulationJohn L Yuhas Work Phone: [phone]-XuyfpAlomere Health Hospital 250 DO Work Phone: [phone]gpx polysaccharide vaccine, 23 valentJohn L [employer] Work Phone: [facility] HospitalJbweys83-25-8175ssdlbiryp virus vaccine, unspecified formulationJohn L Yuhas Work Phone: [phone]-RpfacAlomere Health Hospital 250 DO Work Phone: influenza virus vaccine, unspecified formulationJohn L Yuhas Work Phone: [phone]-QnihkAlomere Health Hospital 250 DO Work Phone: Comment on above:2009 Payers DatePayer CategoryPayerPolicy ID2024MedicaidAETNA MEDICARE ADVANTAGE ..[id number] 2024Medicare (Managed Care) [id number] 2024Medicare OAET MEDICARE [id number] Health Insurance [id number] [id number] 1.2.840.340168.1.13.385.2.7.3.954023.1[id number] [id number]x-jhe 24chf971-sl59-2fv5-6z02-174470nkk85814-28-7378CudqsvbTW497XU 138j61x5-0i17-9cxg-j191-29aj9ja3542910-84-0157Dvdthyp86114067 2..1.019455.3.579.2.22288-40-1175Cqtbyvz6497314 .1.418179.3.579.2.87771-00-3930Fhkxppb4982366 2.16.840.1.828836.3.579.2.61136-11-6631Nuazdcq7367797 2.16840.1.853595.3.579.2.54019-87-8913Dhcwfge1459050 2.16840.1.650001.3.579.2.50713-87-7644Gpfhbxv8268505 2.16840.1.522625.3.579.2.44840-38-8293Bywcbtb0725868 2.840.1.768721.3.579.2.48995-95-2645Poabcgu3573240 2.840.1.630866.3.579.2.33709-82-9756Sgunkex4310660 2.840.1.371035.3.579.2.88467-25-7959Hezhasq4551387 2.840.1.489891.3.579.2.49446-86-6024Vumhevg3636293 2.840.1.584297.3.579.2.24923-39-5892Ejpkelm3808564 2.840.1.608889.3.579.2.30521-91-0857Naesctb065981159 2.840.1.920921.3.579.2.28606-99-6321Hvoubow277471319 2.840.1.978339.3.579.2.80781-64-4205Ozdsljq343399763 2.840.1.953383.3.579.2.16754-18-0921Noyzjmc58422419 2.16840.1.792133.3.579.2.01517-51-4042Pwmjdsa57904929 2.840.1.451875.3.579.2.53432-74-1128Fodppia07011431 2.16840.1.644560.3.579.2.37077-78-9527Euriyyu602640660 2.16840.1.555267.3.579.2.403846-16-7208Nyoqjlm691736630 2.16840.1.363560.3.579.2.077145-62-7870Mdachck620817728 2.16840.1.564755.3.579.2.338756-75-0719Ktoxemt741212109 2.0.1.205327.3.579.2.295518-09-6051Wtoehnt72618552 2.0.1.897247.3.579.2.931393-01-2551Klzopsn471227324 2.0.1.488207.3.579.2.420428-34-2313Qwnvgno175090366 2..1.762749.3.579.2.959691-85-7140Vwqqzuz877660788 2.0.1.356929.3.579.2.202218-50-1749Zqummta463572077 2.0.1.261336.3.579.2.901367-80-0718Cqkcgjr819893369 2.0.1.126281.3.579.2.407331-92-6817Ovzngnd42044684 2.0.1.718863.3.579.2.165501-23-9008Apbepno38063491 2.840.1.398974.3.579.2.567337-85-0683Wkdztzj07072185 2.840.1.735906.3.579.2.169715-25-2626Soieqmu45941562 2.16.840.1.557530.3.579.2.509034-19-7517Submcrz46696162 2.16.840.1.233656.3.579.2.542919-24-7284Qbifcrv82247935 2.16.840.1.277202.3.579.2.061041-96-5462Eamvhoj51536166 2.16.840.1.028577.3.579.2.787949-20-9429Hmqzvvf84923118 2.16.840.1.593881.3.579.2.069293-01-6285Oqqpvfk3612422 2.16.840.1.255771.3.579.2.240117-22-9266Frlqglw2388482 2.16.840.1.500591.3.579.2.876180-74-1863Sloajws1837447 2.16.840.1.240362.3.579.2.896200-32-0455Flauduu1054732 2.16.840.1.695514.3.579.2.342252-10-1688Cmvhcoh8514440 2.16.840.1.132432.3.579.2.014568-68-4952Yjkmslo8102440 2.16.840.1.827583.3.579.2.940209-93-7548Myypkig1405302 2.16.840.1.592800.3.579.2.930585-15-0972Ketffsz9146135 2.16.840.1.424883.3.579.2.866174-97-9493Facmmkl4393703 2.16.840.1.441439.3.579.2.282344-42-5540Uqtknyr7285908 2.16.840.1.323676.3.579.2.763166-18-2989Syddeef7782502 2.0.1.994768.3.579.2.284589-06-5023Gsxwrjr448317273 2.840.1.011988.3.579.2.326438-35-9466Tuqcwdv480803305 2.0.1.359534.3.579.2.032066-49-8119Aflkwab553429263 2.0.1.485196.3.579.2.048373-41-0492Vvvytfu231694070 2..1.546056.3.579.2.603951-75-9216Ndcheej689570277 2..1.137280.3.579.2.154958-17-5287Sstgxks215111911 2..1.712047.3.57[id number] 2..1.311336.3.57[id number] 2..1.107180.3.57[id number] 2..1.605688.3.57[id number] 2.0.1.967637.3.57[id number] 2.0.1.225462.3.57[id number] 2.840.1.601613.3.57[id number] 2.16.840.1.810680.3.57[id number] 2.16.840.1.813485.3.57[id number] 2.16.840.1.821373.3.57[id number] 2.16.840.1.411473.3.57[id number] 2.16.840.1.958656.3.57[id number] 2.16.840.1.858744.3.57[id number] 2.16.840.1.963706.3.57[id number] 2.16.840.1.646974.3.579.[id number] 2.16.840.1.663806.3.57[id number] 2.16.840.1.249318.3.57[id number] 2.16.840.1.41[id number] 2.16.840.1.936095.3.579.2.531 Social History DateTypeDetailFacilityStart: 11-20-2021 End: 35-05-1359Iqhibnc smoking status NHISNever smoked tobacco (finding) [facility]ontart: 08-28-2305zhrfgYdwmqSelect [facility] Work Phone: Start: 50-46-0644tizy not [facility] Work Phone: Start: 84-73-6868Gbv [facility]igned At [facility]: 03-11-2014 End: 23-14-9857Ybf Assigned At [facility] HospitalT[facility] smoking status NHIS Tobacco smoking consumption unknownOhioHealthStart: 03-11-2014 End: 10-23-1972Hpivdrf of Social functionNOPR HealthcareComment on above:1-2 CUPS OF COFFEE DAILY;Start: 35-82-9117Yza Assigned At BirthNot on fileOhioHealth Start: 10-17-2023 End: 68-81-3188Qkwduuq intakeLifetime non-drinker (finding)[facility] Work Phone: Start: 03-27-2020 End: 33-28-4409Pfzgauhz to SARS-CoV-2 (event)Not sureWayne HealthCare Main CampusStart: 06-27-2022 End: 12-85-5135Kobkyow use and exposureSmokeless tobacco non-userProMercy Health [facility]erm[facility] Hospital SystemStart: 04-12-2020 End: 86-57-1465Ndxixuanl beverage intakeEx-drinker (finding)[facility] SystemStart: 58-07-3831Cwwkqi identityIdentifies as male gender (finding) [facility]: 34-10-1145Ieqbml orientationChoose not to disclose [facility]: 04-20-2020 End: 37-39-1495Enwqnyqx to SARS-CoV-2 (event)Unable to assessCleveland Clinic [facility] Start: 05-01-2024 End: 03-23-5824Tcqmrulss beverage intakeCurrent drinker of alcohol (finding)[facility] HealthcareHow often to you have a drink containing alcohol?NeverNOMS Healthcare How many standard drinks containing alcohol do you have on a typical day?1 or 2 [facility] HealthcareStart: 08-04-2012 End: 62-31-6851Odr many standard drinks containing alcohol do you have on a typical day?Patient does not drinkProMedica Health SystemDo you belong to any clubs or organizations such as restoration groups, unions, fraternal or athletic lópez ups, or school groups?YesProMedica Health SystemAre you now , , , , never or living with a partner?MarriedSalem City Hospital SystemHow hard is it for you to pay for the very basics like food, housing, medical care, and heatingNot very hardProFisher-Titus Medical CenterDo you feel stress - tense, restless, nervous, or anxious, or unable to sleep at night because yourmind is troubled all the time - these days [OSQ]Rather muchFormerly Memorial Hospital of Wake Countytart: 04-08-2015 End: 50-17-9863WpvNmum (finding)[facility] Countytart: 08-15-2023 End: 71-10-4321Wncmgew intakeCurrent non-drinker of alcohol (finding)[facility] Medical Equipment Procedure CodeEquipment CodeEquipment Original TextEquipment IdentifierDatesCL STENT CAMILLA FRONTIER 2.5 X 22FDAStart: 25-55-0416EG STENT CAMILLA FRONTIER 2.75 X 30 FDAStart: 21-63-6366OD STENT CAMILLA FRONTIER 3.5 X 12FDAStart: 14-54-0826YE STENT CAMILLA FRONTIER 4.0 X 38FDAStart: 44-44-0616Xkxpaqn artery closure plug/patch, synthetic polymer()[id number] FDAStart: 70-16-6190Lezy Cement Palacos Radiopaque W/Gentamicin - [id number]_lavBdlgj: 45-86-8294Qrhgzry on above: Description: bone cement with 0.5g gentamycinCement Simplex P Bone Radiopaque Full Dose Sterile - [id number]_mueWgoub: 74-08-4533Zgruff Simplex P Bone Radiopaque Full Dose Sterile - [id number]_cmsKwqcg: 04-12-2020 Ezb-Rk-Y-Kind Implant - [id number]_vloDirgr: 38-61-9193Xfbtoyi on above: Description: Nex Gen Femoral TcgelnycFcq-Ww-G-Kind Implant - [id number]_hjr Start: 45-97-7684Dfujpfz on above:Description: Nex Gen Tibial component Dgy-Fw-E-Kind Implant - [id number]_nrvDdnaj: 64-22-8822Kwijcjt on above: Description: CR ARTICULAR SURFACE REGULAR CONSTRAINTPersona Imp Knee Surf Artc R 10 8- [id number]_impStart: 95-49-1151Vppn Iol Ultrasert 11.5 - [id number]_pzdFqdkj: 65-19-1769Xfvqjigiy Persona 11 Standard Cocr Femoral Cruciate Retain - [id number]_wqnYyzww: 28-13-2255Nvcekxvui 38mm All Poly Patellar Psn - [id number]_fvxIocsh: 48-97-1946Dlenvv All Poly Patella 38mm 9.5mm Thick - [id number]_ribAgemi: 00-62-0406Edigxmwys Persona 5d G Tivanium Tibial Cemented Stem Knee Right - [id number]_jvtSeafv: 31-50-0620Ltrhnmemc Persona 14mm Taper 30+ Mm Stem Knee Tibia - [id number]_impStart: 95-44-9036Sxxf Nexgen Complete Knee Taper Stem - [id number]_impStart: 16-99-2880Bzc Lck Creo Spnl Thrd Ns Rpl Special 414687 - [id number]_qnnLdtaj: 20-16-4480Dynwc Bn Cllr Bn Mtrx Lg 10cc Vivigen Frmbl Vivigen Rpl 512162+060189 - [id number]_mvyCvtxb: 65-88-2597Ohp Spnl Creo 45mm 5.5mm Ti Crv Ns Rpl Special 205107 - [id number]_wqyCcftz: 09-21-2023 Screw Bn 50mm 6.5mm Cnn Spne Creo Ns Lf - [id number]_fshHukmh: 09-21-2023 Test blood sugar 3 times a [id number]: 02-02-2023 End: 38-45-7279Mfag blood sugar 3 times a [id number]: 79-33-3163FH STENT CAMILLA FRONTIER 2.5 X 22FDAStart: 08-55-4192FP STENT CAMILLA FRONTIER 2.75 X 30FDA Start: 70-50-5918ZP STENT CAMILLA FRONTIER 3.5 X 12FDAStart: 74-26-3689NU STENT CAMILLA FRONTIER 4.0 X 38FDAStart: 10-06-2023 Goals DatePatient GoalDesired Activity/StatePersonal health goalComment on above: Evaluation of progress towards goal: Plan to return home with spouse.Personal health goal Functional Status GslfVsocnoaejyTjtntjAnozxxjc10-58-4776Btq you deaf, or do you have serious difficulty hearingNo 04/13/2020 3:11 PM EDT Temitope Washburn APRN.QI [facility] Work Phone: [phone]) [phone] you blind, or do you have serious difficulty seeing, even when wearing glassesNo 04/13/2020 3:11 PM EDT Temitope Washburn APRN.QI [facility]08-11-2020Do you have serious difficulty walking or climbing stairsNo 04/13/2020 3:11 PM EDT Temitope Washburn APRN.[facility]08-11-2020Do you have difficulty dressing or bathingNo 04/13/2020 3:11 PM EDT Temitope Washburn, TECHNOLOGY APPLICATIONS TEACHER.[facility]08-11-2020 Because of a physical, mental, or emotional condition, do you have difficulty doing errands alone such as visiting a physician's office or shoppingNo 04/13/2020 3:11 PM EDT Temitope Washburn, SONIDO.[facility] Mental Status OwdiMtamfjyzpbWfwbvoQkymdawt23-08-0932Flxfhppxz functionLevel of Consciousness Alert;[facility] Work Phone: [phone]) [phone]rkzjny of a physical, mental, or emotional condition, do you have serious difficulty concentrating, remembering, or making decisionsNo 04/13/2020 3:11 PM EDT Temitope Washburn, SONIDO.[facility] Clinical Notes 02-28-2012 to 06-19-2025 Note Date & WpwwPociZqquxhsy32-55-4821 Miscellaneous Notes* Telephone Encounter - Lina Alexandre RN - 06/19/2025 2:51 PM EDT He is not currently appropriate for CN services r/t being in psych treatment so not offered at thistime documented in this encounterOhio Valley Surgical Hospital10-17-2025 Telephone encounter Note* Telephone Encounter - Lina Alexandre RN - 06/19/2025 2:51 PM EDT He is not currently appropriate for CN services r/t being in psych treatment so not offered at thistime [employer] Work Phone: [phone] 780-621510-17-2025 Miscellaneous Notes* Telephone Encounter - Lina Alexandre RN - 06/19/2025 2:45 PM EDT I reviewed members chart. Seen by PCP today. Currently in psychiatric treatment for OCD,depression and anxiety and therefore not appropriate for CN services. documented in this encounterOhio Valley Surgical Hospital10-17-2025 Telephone encounter Note* Telephone Encounter - Lina Alexandre RN - 06/19/2025 2:45 PM EDT I reviewed members chart. Seen by PCP today. Currently in psychiatric treatment for OCD,depression and anxiety and therefore not appropriate for CN services. 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 ([facility]) 06/01/2022 Back pain CAD, multiple vessel 08/30/2023 Cardiomegaly Cataract CHF (congestive heart failure) ([facility]) Chronic diastolic CHF (congestive heart failure) ([facility]) 02/05/2023 Constipation 10/15/2023 Coronary arteriosclerosis 06/01/2022 Coronary artery disease 2009 CABG x5 COVID-19 Dental disease crowns, missing teeth Depression Deviated septum Diabetes mellitus type 2, controlled ([facility]) Difficult intravenous access OSEI (dyspnea on exertion) Esophageal stricture Fatigue 06/28/2011 Fractures Gallstones 04/03/2024 GERD (gastroesophageal reflux disease) H/O esophagogastroduodenoscopy dilatation Heart attack ([facility]) 10/06/2023 4 stents Hiatal hernia Hyperlipidemia Hypertension Hyponatremia Incontinence of bowel Incontinence of urine 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 Lower extremity weakness 09/20/2023 MCI (mild cognitive impairment) 02/25/2021 Memory loss Mild cognitive impairment Mixed anxiety and depressive disorder 09/07/2017 Mixed hyperlipidemia 06/28/2011 Last Assessment & Plan: Assessment: no meds currently ,stable Moderate episode of recurrent major depressive disorder ([facility]) 12/25/2022 MRSA (methicillin resistant Staphylococcus aureus) 1992 [...] elevation myocardial infarction (STEMI) of inferior wall ([facility]) 10/15/2023 Type 2 diabetes mellitus with diabetic peripheral angiopathy without gangrene, with long-term current use of insulin ([facility]) 10/13/2019 Urinary retention Visual impairment glasses retinal detatchment Vitamin D deficiency Vitreous hemorrhage ([facility]) Vocal cord granuloma Past Surgical History Past Surgical History: Procedure Laterality Date BACK SURGERY Left Circumferential 09/21/2023 fusion CARDIAC CATHETERIZATION x4 CATARACT EXTRACTION, BILATERAL Bilateral COLONOSCOPY 2012 COLONOSCOPY DIAGNOSTIC / SCREENING N/A 04/09/2025 Performed by Tim Ibrahim MD at [facility] CORONARY ARTERY BYPASS GRAFT x5 ESOPHAGOGASTRODUODENOSCOPY dilatation EYE SURGERY Bilateral x3 LAMINECTOMY LUMBAR SINGLE LEVEL / L4/5 N/A 09/21/2023 Performed by Bobbi Steen MD at [facility] POSTERIOR LAMINECTOMY FUSION LUMBAR SINGLE LEVEL / L4/5 N/A 09/21/2023 Performed by Bobbi Steen MD at [facility] REPLACEMENT TOTAL KNEE Bilateral REVISION OF [...] 60 min Stress: Stress Concern Present (04/17/2023) [place] [facility] [employer] [facility] - Occupational Stress Questionnaire [...] nitroglycerin (NITROSTAT) 0.4 MG SL tablet omega 8-bqo-liy-fish oil (Fish OiL) 300-1,000 mg capsule Take [...] BP Postition: Sitting) Pulse 76 Temp 36.6 C (97.9 F) Ht 177.8 cm (5' 10 ) Wt 121.1 kg (267 lb) SpO2 97% BMI 38.31 kg/m Physical Exam Physical Exam Nursing note [...] gangrene, with long-term current use of insulin ([facility]) 2. Burning tongue - Folate; Future 3. Primary hypertension 4. Obesity, morbid ([facility]) 5. Mixed hyperlipidemia 6. CAD, multiple vessel 7. Obsessive-compulsive disorder, unspecified type Current regimen effective, follows with several specialists Return in about 6 months (around 12/18/2025) for Recheck. There are no discontinued medications. There are no Patient Instructions on file for this visit. TERRY Monteiro 06/19/25 1248 documented in this encounterOhio Valley Surgical Hospital10-09-2025 History of Present illness Narrative* Bobbi Steen MD - 06/11/2025 11:10 AM EDT Images from the original note were not included. [facility] [address] [place] [address], [address] [place] [address] * CHART NOTE ? 06/11/2025 Patient: Tom Khan 1955 [id number] Nurse Practitioner: Shanice Kline CNP Physician: Bobbi Steen MD, FAANS IMPRESSION / PLAN 69 y.o. male with numbness in his feet and calves as well as bowel and urinary incontinence. Imagesreviewed do not indicate etiology for the incontinence as there is no compression around the conus or below. I will refer him to urology for a urodynamics study. HISTORY OF PRESENT ILLNESS 69 y.o. male presents to the clinic as a follow up for numbness in his feet and calves, as well as,bowel incontinence. He is here today to review imaging. He notes feeling nauseous and is in the process of weaning off of Risperidone. He notes intermittent urinary incontinence and bowel incontinence issues. He states he had a recent normal colonoscopy. Each of the patient's unique studies were independently interpreted and reviewed to their understanding in office today including but not limited to diagnosis, treatment options, and risk factors. Denies loss of plate sensitizer strength, saddle anesthesia, weakness, radicular symptoms, and loss of balance.Patient is diabetic and not a smoker. 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 ([facility]) 06/01/2022 Back pain CAD, multiple vessel 08/30/2023 Cardiomegaly Cataract CHF (congestive heart failure) ([facility]) Chronic diastolic CHF (congestive heart failure) ([facility]) 02/05/2023 Constipation 10/15/2023 Coronary arteriosclerosis 06/01/2022 Coronary artery disease 2009 CABG x5 COVID-19 Dental disease crowns, missing teeth Depression Deviated septum Diabetes mellitus type 2, controlled ([facility]) Difficult intravenous access OSEI (dyspnea on exertion) Esophageal stricture Fatigue 06/28/2011 Fractures Gallstones 04/03/2024 GERD (gastroesophageal reflux disease) H/O esophagogastroduodenoscopy dilatation Heart attack ([facility]) 10/06/2023 4 stents Hiatal hernia Hyperlipidemia Hypertension Hyponatremia Incontinence of bowel Incontinence of urine 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 Lower extremity weakness 09/20/2023 MCI (mild cognitive impairment) 02/25/2021 Memory loss Mild cognitive impairment Mixed anxiety and depressive disorder 09/07/2017 Mixed hyperlipidemia 06/28/2011 Last Assessment & Plan: Assessment: no meds currently ,stable Moderate episode of recurrent major depressive disorder ([facility]) 12/25/2022 MRSA (methicillin resistant Staphylococcus aureus) 1992 [...] elevation myocardial infarction (STEMI) of inferior wall ([facility]) 10/15/2023 Type 2 diabetes mellitus with diabetic peripheral angiopathy without gangrene, with long-term current use of insulin ([facility]) 10/13/2019 Urinary retention Visual impairment glasses retinal detatchment Vitamin D deficiency Vitreous hemorrhage ([facility]) Vocal cord granuloma PAST SURGICAL HISTORY Past Surgical History: Procedure Laterality Date BACK SURGERY Left Circumferential 09/21/2023 fusion CARDIAC CATHETERIZATION x4 CATARACT EXTRACTION, BILATERAL Bilateral COLONOSCOPY 2012 COLONOSCOPY DIAGNOSTIC / SCREENING N/A 04/09/2025 Performed by Tmi Ibrahim MD at [facility] CORONARY ARTERY BYPASS GRAFT x5 ESOPHAGOGASTRODUODENOSCOPY dilatation EYE SURGERY Bilateral x3 LAMINECTOMY LUMBAR SINGLE LEVEL / L4/5 N/A 09/21/2023 Performed by Bobbi Steen MD at [facility] POSTERIOR LAMINECTOMY FUSION LUMBAR SINGLE LEVEL / L4/5 N/A 09/21/2023 Performed by Bobbi Steen MD at [facility] REPLACEMENT TOTAL KNEE Bilateral REVISION OF SCLERAL BUCKLE Bilateral ROTATOR CUFF REPAIR Left SEPTOPLASTY SOCIAL HISTORY Social History Socioeconomic History Marital status: Spouse [...] 60 min Stress: Stress Concern Present (04/17/2023) [place] [facility] Occupational [employer] - Occupational Stress Questionnaire [...] Risk (04/17/2023) Housing Instability Housing Instability: No REVIEW OF SYSTEMS ROS Positive Findings: Negative otherwise noted in the HPI PHYSICAL EXAMINATION Alert Oriented No percussion tenderness along spine Absent Lhermitte's Absent Spurling ROM of the neck is normal No weakness No pathological reflexes No atrophy No fasciculations Sensation to light touch is normal in son dermatomes MATHEUS is negative SLR is negative MRI / IMAGES MR LUMBAR 04/16/2025: IMPRESSION: * Laminectomy with posterior lumbar spinal fusion at L4-L5 with postsurgical change. No hardware complications are seen. No evidence of significant central canal narrowing. * Mild degenerative arthritis in the lumbar spine. Facet arthropathy seen at L3- L4 and L4-L5 with mild degree of central canal narrowing. Neural foramina are patent. * Minimal disc bulge at L3-L4. No evidence of cherie disc herniation in lumbar region. XR LUMBAR 04/06/2025: Impression: Postoperative changes of lumbar fusion hardware L4-L5 of multilevel degenerative disc disease. Multilevel facet hypertrophy. No significant movement flexion or extension. No acute process. Atherosclerotic abdominal aorta which is ectatic measuring 2.7 cm. I interpreted the imaging studies independently and critical findings were anotated for the patient. MRI lumbar spine demonstrated age appropriate degenerative changes for his age without severe spinal cord or thecal sac compression. Signal in the cord is normal. Electronically Signed By: Bobib Steen MD This note was created with the assistance of a speech recognition program with the goal of generating a timely record of the patient encounter. Inadvertent computerized weigher packing errors related to syntax, spelling, homophones, and/or inaudibility may be present. Scribe Statement: Scribed for and in the presence of Bobbi Steen MD by Steve Mcintyre. Provider Statement: I, Bobbi Steen MD personally performed the services described in the documentation, as scribedby Steve Mcintyre in my presence, and it is both accurate and complete Steve Mcintyre 06/11/25 0772 Steve Mcintyre 06/11/25 1153 documented in this encounterOhio Valley Surgical Hospital10-09-2025 Instructions* Patient Instructions* PRASHANT Rockwell - 06/11/2025 11:10 AM EDT Patient was seen today by Dr. Steen. Urology referral placed to Dr. Blankenship for a urodynamic study. JA documented in this encounterOhio Valley Surgical Hospital10-08-2025 History of Present illness Narrative* Mc Chatman DPM - 06/10/2025 10:45 AM EDT Images from the original note were not included. Subjective Patient ID: Tom Khan is a 69 y.o. male who presents for DM Foot Care (Pt is here today for diabetic foot care/BS: 135 A1C: 6.6/LV Dr. Betsy Mckenzie 01-14-2025/SS: 11). HPI This is an established patient who returns to clinic for diabetic foot evaluation. He states it on the left foot he stepped on a nail and it was in his shoe for awhile before he recognized it. He is unsure when this happened but states that it does not seem to have caused any issues. Review of Systems Constitutional: Negative for activity [...] the morning and 5 mg before bedtime. (Patientnot taking: Reported on 03/11/2025), Disp: , Rfl: [...] 60 mg by mouth in the morning. (Patientnot taking: Reported on 03/11/2025), Disp: , Rfl: [...] (five) minutes if needed, Disp: , Rfl: [place]-3 Fatty Acids (Fish Oil) 1200 MG capsule [...] mouth Daily as needed (Patient not taking: Reportedon 02/23/2025), Disp: , Rfl: spironolactone (Aldactone) 25 [...] the dorsum of the left hallux IPJ. Semi rigid plantar flexion contracture of the left 2nd toe at the PIPJ and DIPJ joint. Semi reducible. Skin: Capillary Refill: Capillary refill takes less than 2 seconds. Comments: 7 toenails exhibit clinical mycosis with thickened appearance, yellow/brown discoloration, crumbly texture, subungual debris. All 10 toenails are elongated. Hyperkeratotic tissue: Left foot: Plantar tuft of the hallux, plantar tuft of the 2nd toe with preulcerative lesion. No ulceration after debridement today. Plantar lateral midfoot at previous nail puncture site. No ulceration in this area after debridement. Right foot: None Skin is diffusely thin. Neurological: Mental Status: He is alert. Comments: Protective sensation intact at 3/10 pedal sites Vibratory sensation diminished at the 1st MTP bilaterally. Psychiatric: Mood and Affect: Mood normal. Behavior: Behavior normal. Assessment/Plan ICD-10-CM 1. Hammer toe of left foot M20.42 2. Corns and callosities L84 3. Diabetic polyneuropathy associated with type 2 diabetes mellitus (HCC) E11.42 4. Dystrophic nail L60.3 5. Dermatophytosis of nail B35.1 Patient was examined and evaluated. 10 toenails were debrided in length and thickness today utilizing a nail nipper and electric bur soap grinder without incident. Sterile 15. Blade utilized by me to reduce all hyperkeratotic tissue without incident. He continues to have preulcerative lesion of the ykcm0gn toe. At this point he has been fortunate that after debridement he has not had cherie ulcerationof the left 2nd toe but it continues to be concerning. The toe is slightly flexible and so he may get some benefit from flexor tenotomy/plantar capsulotomy of the PIPJ joint. I did discuss this at length again with him today including risks and benefits. I have asked him to bring his in if he would like to consider moving forward with this procedure. Additionally on the left foot he stepped on a nail that punctured through his shoe. He is unsure when it happened and at this time it thankfully appears well healed. He did have some callus buildup on the plantar lateral midfoot at the suspected nail puncture wound site. No ulceration was noted after debridement he will continue to monitorthe area closely. He will call immediately with any concerning findings. Again discussed the importance of checking his feet daily and even multiple times a day based on his level of neuropathy. Follow up 10 weeks for high-risk diabetic foot check. He will let us know sooner if he would like to move forward with flexor tenotomy/plantar capsulotomy of left 2nd toe. This note was created with the assistance of a speech recognition program. While intending to generate a timely document that accurately reflects the content of the visit, no guarantee can be provided that every grammatical or spelling mistake has been or will be identified or corrected. Thank you for your understanding. Mc Chatman DPM documented in this encounterBates County Memorial HospitalUnrksgcqrr44-02-1130 NoteHNO ID: [id number] Author: JOSE ANGEL BALTAZAR MD Service: ? Author Type: Physician Type: Progress Notes Filed: 06/05/2025 14:45 Note Text: PSYC NEW - PSYCHIATRIC ASSESSMENT Patient was seen for an initial evaluation. I have communicated my name and active licensure. The patient's identity and physical location were verified at the time of this visit. Either the patient or their legal retail representative has been informed of the risks and benefits of -- and alternatives to -- treatment through a remote evaluation and consents to proceed with the evaluation remotely. All information is from Patient report except when noted. This evaluation is NOT intended for forensic, disability or child custody purposes. 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 HPI: 69M with HFpEF, CAD (CABG x3 2008; heart attack in 2022?), MDD, OCD MCI The patient reports a long-standing history of depression, OCD, and anxiety, with symptoms present since his late 20s. He has been hospitalized multiple times for psychiatric issues, with the most recent hospitalization occurring from July to August 2024 at [facility] in [place], [place]. During this hospitalization, he was started on risperidone. He also experienced a significant breakdown in 2019, characterized by agitation, pacing, and psychotic symptoms, leading to extended stays at [facility] in [place] and [facility] in [place]. 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 He expresses regret over not having children and frequently ruminates on past decisions and nondenominational beliefs. His notes that he often makes random and inappropriate comments in social situations, which she attributes to his medication regimen. He denies current suicidal ideation but has a history of suicidal thoughts and a half-hearted attempt involving a bag over his head, which his intervened in. He expresses a desire to live and improve his relationship with his . His sleep has improved recently, and he is now able to sleep through the night. However, he continues to wake up early in the morning, which disrupts his 's sleep. He reports a burning tongue sensation, which he attributes to his medication, and is currently taking vitamin B12 as recommended by his neurologist. He is currently taking duloxetine 60 mg once daily, mirtazapine 15 mg at bedtime, Depakote 125 mg two capsules twice daily, risperidone 0.5 mg twice daily, Ativan 0.5 mg as needed every 6 hours (rarely used), and BuSpar 10 mg twice daily. He has a history of taking multiple psychiatric medications, including Paxil, Remeron, Wellbutrin, Zoloft, Effexor, Pristiq, Cymbalta, and propranolol. He underwent TMS in 2017 but did not find it helpful. He has a history of back surgery in September 2023 and a heart attack in October 2023, requiring four stents. He also had quintuple bypass surgery in 2008 at the [facility]. He is scheduled for an MRI on June 13 to evaluate his current symptoms. He reports a family history of anxiety in his mother and alcoholism in his paternal grandfather. 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 He denies any history of abuse or bullying. He is currently retired and lives with his in [place], [place]. He has no history of substance abuse and denies any current use of alcohol or drugs. Sleep: difficulty staying asleep Interest: diminished Guilt: quite a bit Energy: stable Concentration: fair Appetite: good Psychomotor Activity: psychomotor activity was WNL. Suicide: None Phobias: no irrational fears Memory: Fair Anxiety: high Obsessions: and dying Compulsions: none Madeline: Denies any symptoms of madeline PTSD: The patient denies being expose to or witnessing traumatic events. Self Mutilation: Denies PAST MEDICAL HISTORY Diagnosis Date Anxiety state, unspecified Psychiatrist- Dr. Orourke (psychiatrist). with depression. CAD (coronary artery disease) Esophageal stricture Essential hypertension, benign Fracture Right arm Other and unspecified hyperlipidemia Other tear of cartilage or meniscus of knee, current left knee Personal history of colonic polyps Removed 2001 Primary osteoarthritis of right knee Retinal detachment with retinal defect, unspecified Detached retina with surgery. 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 ASSESSMENT/PLAN: 1. Memory loss (R41.3) 2. Cognitive impairment, mild, so stated (G31.84) 3. MCI (mild cognitive impairment) (G31.84) - MMSE score 28/30; prior neuropsychological testing in 2017, 2019, and 2021 showed mild cognitive impairment. - Differential includes neurodegenerative dementias (Alzheimer's, frontotemporal, temporal lobe), vitamin B12 deficiency, prior strokes, brain tumors, sleep disorders, depression, anxiety, chronic pain, and medication effects. - Order MRI brain to assess for neurodegenerative changes, prior strokes, or other structural causes. - Order serum vitamin B12 level. - Start vitamin B12 1,000 mcg daily. - Educated on potential causes of memory loss and rationale for MRI and B12 testing. - Follow-up pending MRI and lab results. 4. Obsessive-compulsive disorder, unspecified type (F42.9) 5. Recurrent major depressive disorder, remission status unspecified (F33.9) 6. CANDIDA (generalized anxiety disorder) (F41.1) - History of OCD, recurrent major depressive disorder (remission status unspecified), and generalized anxiety disorder; recent worsening of symptoms and medication side effects. - Refer to Dr. Tom Cai (geriatric psychiatry) for comprehensive psychiatric evaluation and medication management. - Advised to coordinate care through [facility] for streamlined communication. PATIENT INSTRUCTIONS: - A prescription for vitamin B12 1,000 mcg once daily has been sent to your pharmacy; you can have your B12 level drawn today without fasting. - A volumetric MRI of the brain has been ordered to evaluate for changes related to memory; please schedule this at a [facility] facility ([facility] [place]) before you leave--the scheduling team will assist with insurance authorization. - You ve been referred to Dr. Tom Cai, geriatric psychiatrist at [facility]; please make an appointment with him today at check-out. - Ensure both you and your have active access to your [facility] to view resultsand facilitate communication. - Once your MRI is complete, our office will review the findings and contact you to discuss next steps; you may also text or schedule a follow-up appointment if any questions arise. Any problems or concerns to call me or primary care physician immediately or go straight to the emergency department HISTORY OF PRESENT ILLNESS: Tom Khan is a 69-year-old male with a history of OCD, major depressive disorder, and generalizedanxiety disorder, presenting for evaluation of memory issues and restlessness. He is accompanied byhis , who provides additional history. Tom has been experiencing memory issues for the past 7-8 years. He underwent neuropsychological testing in 2019 and 2021, which indicated mild cognitive impairment. He reportedly declined a repeat battery of testing. He describes difficulty remembering positive aspects of his past, stating, A lot of this has to do with remembering the bad things I did in my past and not remembering the good things that I've done. He also reports feeling spiritually deficient and unwell, stating, I feel like I could faint anytime. Tom has a history of OCD, major depressive disorder, and generalized anxiety disorder, with a major mental breakdown in 2019. He was hospitalized in July and August of the past year and was started on an antipsychotic, which reportedly worsened his symptoms. His reports that he does notdo well when his Risperdal is lowered. She expresses concern that he may be overmedicated and is seeking a referral to a new psychiatrist. Tom also experiences akathisia, described as an inability to stop moving, which his attributes to his medications. He is currently taking vitamin D3 and requests a prescription for vitamin B12. Past Diagnostic Results: - (2021) Neuropsychological Testing: Mild cognitive impairment. - (2019) Neuropsychological Testing: Mild cognitive impairment. - (2017) Neuropsychological Testing: Mild cognitive impairment. COMPLETE REVIEW OF SYSTEMS: GENERAL: No weight loss, malaise or fevers RESPIRATORY: Negative for cough, hemoptysis, wheezing, COPD, dyspnea or shortness of breath CARDIOVASCULAR: Negative for chest pain, leg swelling, hypertension, CHF or palpitations GI: No nausea, vomiting, or diarrhea See HPI. All other systems reviewed and are negative. PAST MEDICAL HISTORY Diagnosis Date Anxiety state, unspecified Psychiatrist- Dr. Orourke (psychiatrist). with depression. CAD (coronary artery disease) Esophageal stricture Essential hypertension, benign Fracture Right arm Other and unspecified hyperlipidemia Other tear of cartilage or meniscus of knee, current left knee Personal history of colonic polyps Removed 2001 Primary osteoarthritis of right knee Retinal detachment with retinal defect, unspecified Detached retina with surgery. 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 CABG, ARTERY-VEIN, FIVE 10/09/08 DISCISSION,2ND CATARACT,LASER os Yag Capsulotomy EGD DILATION REMV LENS MATERIAL,PHACOFRAGMT os Cataract Extraction REPAIR DETACH RETINA,SCLERAL BUCKLE ou Scleral Buckle REPAIR ROTATOR CUFF,ACUTE VITRECTOMY,MECHANICAL os [place] Vitrectomy FAMILY HISTORY Problem Relation Age of Onset Diabetes Mother Stroke Mother Heart Father RI age 56 No Ocular Disease Other SOCIAL HISTORY[1] MEDICATIONS: Current Outpatient Medications Medication Sig Dispense Refill insulin lispro (ADMELOG SOLOSTAR U-100 INSULIN) 100 unit/mL Inject 4 Units subcutaneously three times a day before meals. TOUJEO MAX U-300 SOLOSTAR 300 unit/mL (3 mL) inpn Inject 42 Units subcutaneously daily at bedtime. semaglutide (OZEMPIC) 0.25 mg or 0.5 mg(2 mg/1.5 mL) pen Inject 2 mg subcutaneously one time a week. JARDIANCE 25 mg tablet Take 25 mg by mouth daily with breakfast. clopidogrel (PLAVIX) 75 mg tablet Take 75 mg by mouth once daily. aspirin, enteric coated (ASPIRIN, ENTERIC COATED) 81 mg EC tablet Take 81 mg by mouth once daily. atorvastatin (LIPITOR) 40 mg tablet Take 40 mg by mouth once daily. carvedilol (COREG) 12.5 mg tablet Take 12.5 mg by mouth two times a day. losartan (COZAAR) 25 mg tablet Take 25 mg by mouth once daily. spironolactone (ALDACTONE) 25 mg tablet Take 12.5 mg by mouth once daily. nitroglycerin sublingual (NITROQUICK) 0.4 mg SL tablet Dissolve 0.4 mg under the tongue every 5 minutes as needed. DULoxetine DR (CYMBALTA) 60 mg capsule Take 60 mg by mouth once daily. mirtazapine (REMERON) 15 mg tablet Take 15 mg by mouth daily at bedtime. busPIRone (BUSPAR) 10 mg tablet Take 10 mg by mouth two times a day. divalproex sprinkle (DEPAKOTE SPRINKLES) 125 mg capsule Take 250 mg by mouth two times a day. risperiDONE (RISPERDAL) 1 mg tablet Take 0.5 mg by mouth once daily. LORazepam (ATIVAN) 0.5 mg Take 0.5 mg by mouth every 6 hours as needed. amLODIPine (NORVASC) 10 mg tablet Take 10 mg by mouth. busPIRone (BUSPAR) 10 mg tablet Take 20 mg by mouth three times daily. pantoprazole DR (PROTONIX) 20 mg tablet Take 1 tablet by mouth once daily for 14 days. 14 tablet 0 semaglutide (OZEMPIC SUBCUTANEOUS) Inject 1 Dose subcutaneously one time a week. 50 mg weekly MEDICATION, NON-DATABASE supplements mupirocin (BACTROBAN) 2 % ointment Apply 0.5 inch with cotton swab (Q-tip) to each nostril in the morning and evening for 5 days prior to and including day of surgery. 22 g 0 chlorthalidone (HYGROTON) 25 mg tablet chlorthalidone 25 mg tablet cloNIDine HCl (CATAPRES) 0.1 mg tablet clonidine HCl 0.1 mg tablet TAKE 1 TABLET BY MOUTH THREE TIMES A DAY metFORMIN (GLUCOPHAGE) 500 mg tablet Take 500 mg by mouth twice daily with meals. No current facility-administered medications for this visit. Problem List ACTIVE PROBLEM LIST Senile Nuclear [...] Sleep Apnea Primary Osteoarthritis of Right Knee S/P Total Knee Arthroplasty, Right Obesity, Class II, Bmi 35-39.9 Mci (Mild Cognitive Impairment) Memory Loss Cognitive Communication Deficit ALLERGIES: ALLERGIES No Known Allergies PHYSICAL EXAM: BP 130/62 Pulse 81 General appearance: well appearing, alert, and in no acute distress Skin: skin color, texture, turgor normal, no rashes or lesions Head: normal MINI-MENTAL STATE EXAMINATION (MMSE) Make the patient comfortable and establish rapport. Ask questions in the order listed. Total possible score is 30. ORIENTATION 1. What is the (year) (season) (date) (day) (month)? Max score=5 Patient's score=5 2. Where are we? (state) (county) (town or city) (hospital) (floor)? Max score=5 Patient's score=3 REGISTRATION Ask the patient if you may test his/her memory. Then say the names of 3 unrelated objects, clearly and slowly, about one second for each (eg, apple, table, catrachito). After you have said all 3, ask him/her to repeat them. This first repetition determines the score(0-3), but keep saying them until he/she can repeat all 3, up to 6 trials. Max score=3 Patient's score=3 ATTENTION AND CALCULATION Ask the patient to begin with 100 and count backwards by 7. Stop after 5 subtractions (93, 86, 79, 72, 65). Score the total number of correct answers. If the patient cannot or will not perform the serial 7s task, ask him/her to spell the word WORLD backwards. The score is the number of letters in the correct order (eg, DLROW=5; DLRW=4; DLORW, DLW=3; OW=2; DRLWO=1). Max score=5 Patient's score=5 RECALL Ask the patient to recall the 3 items repeated above (eg, apple, table, catrachito). Max score=3 Patient's score=3 LANGUAGE Naming: Show the patient a wristwatch and ask him/her what it is. Repeat for pencil. Max score=2 Patient's score=2 Repetition: Ask the patient to repeat the phrase No ifs, ands, or buts: after you. Max score=1 Patient's score=1 3-Stage Command: Give the patient a piece of blank paper and ask him/her to take a piece of paper in your right hand, fold it in half, put it on the floor. Score 1 point for each part correctly executed. Max score=3 Patient's score=3 Reading: On a blank piece of paper, print the sentence CLOSE YOUR EYES in letters large enough for the patient to see clearly. Ask him/her to read it and do what it says. Score 1 point only if he/sheactually closes his/her eyes. Max score=1 Patient's score=1 Writing: Give the patient a blank piece of paper and ask him/her to write a sentence. Do not dictate a sentence; it is to be written spontaneously. It must contain a subject and verb and be sensible.Correct grammar and punctuation are not necessary. Max score=1 Patient's score=1 Copying: Ask the patient to copy the figure of intersecting pentagons exactly as it is. All 10 angles must be present and 2 must intersect to form a 4-sided figure to score 1 point. Tremor and rotation are ignored. Max score=1 Patient's score=1 MAXIMUM TOTAL SCORE = 30 TOTAL SCORE = 28/30 Suggested guideline for determining the severity of cognitive impairment: Mild: MMSE>21 Moderate: MMSE 10-20 Severe: MMSE<9 Expected decline in MMSE scores in untreated mild to moderate Alzheimer's patient is 2 to 4 points per year. *Adapted from Folstein et al.1 and Brian and Rosalvastein2. (c) 1974, 1997 [employer] Used withpermission. References: 1. Folstein MF, Folstein SE, [place]. Mini-Mental State: a practical method for grading the cognitive state of patients for the clinician. J Psychiatr Res. 1975; 12:189-198. 2. Brian, JR, Folstein MF, Mini-Mental State Examination (MMSE). Psychopharm Bull. 1988;24:689-692. 3. Dipti JT, Sharri FJ, Marcela RD, Star A, Brandie F. Neuropsychological function in Alzheimer's disease: pattern of impairment and rates of progression. Arch Neurol. 1988;45:263-268. 4. Mercedes SWAIN, Ivis B,Wilian BurgerP, Emil FALK. Predictors of cognitive and functional progression in patients with probable Alzheimer's disease. Neurology. 1992;42:7316-8435. Neurological exam: Mental Status: Alert, oriented to person, place and time and Follows commands. Language: Comprehension intact? (simple commands - Yes, complex commands Yes), Fluency intact? Yes,repetition intact? Yes, reading intact? Yes, naming intact? Yes. Cranial Nerves: CNII: Visual acuity normal, Visual garcia full to confrontation CNIII, IV, : Pupils equal, round and reactive to light, full extraoccular movements without nystagmus CN V: Facial sensation intact bilaterally to fine touch and pinprick, masseter 5/5 CN VII: Facial muscles symmetric and strong CN VIII: Hears finger rub well bilaterally CN IX: Deferred CN X: Palate elevates symmetrically CN XI: Full strength shoulder shrug bilaterally CN XII: Tongue protrusion full and midline Non-Dilated Fundiscopic Examination: Deferred Deferred Examination Motor Exam: Muscle bulk: Normal b/l Muscle Tone: Normal Muscle Power: Muscle Power: Moved all four extremities spontaneously with no focal motor weakness Reflexes: Symmetrically present Plantars: flexor Sensation: Sensation is intact to light touch Coordination: Finger-to- nose-finger intact bilaterally. Gait: Patient's gait is normal No follow-ups on file. Rodrigue Jj MD I spent a total of 45 minutes on the date of the service which included preparing to see the patient, [id number] patient care, completing clinical documentation, obtaining and/or reviewing separately obtained history, performing a medically appropriate examination, counseling and educating the pat ient/family/caregiver, and ordering medications, tests, or procedures. Recording using [employer] software for draft documentation of the visit was discussed with the patient/authorized retail representative; all questions welcomed and answered. Patient/authorized retail representative agreed to proceed Signature Rodrigue Jj MD Staff, Neurology May 14, 2025 1:56 PM [1] Social History Tobacco Use Smoking status: Never Smokeless tobacco: Never Vaping Use Vaping status: Never Used Substance Use Topics Alcohol use: Not Currently Alcohol/week: 2.0 standard drinks of alcohol Types: 2 Cans of beer per week Drug use: No [facility]09-11-2025 History and physical note* Rodrigue Jj MD - 05/14/2025 1:56 PM EDT NEUROLOGY CONSULT NOTE PATIENT NAME: Tom Khan DATE: May 14, 2025 PRIMARY CARE PHYSICIAN: Tom Paniagua DO REASON FOR CONSULT: Cognitive impairment REQUESTING PHYSICIAN: Self My final recommendations will be communicated to the requesting health care provider by way of shared medical record for internal providers. ASSESSMENT/PLAN: 1. Memory loss (R41.3) 2. Cognitive impairment, mild, so stated (G31.84) 3. MCI (mild cognitive impairment) (G31.84) - MMSE score 28/30; prior neuropsychological testing in 2017, 2019, and 2021 showed mild cognitive impairment. - Differential includes neurodegenerative dementias (Alzheimer's, frontotemporal, temporal lobe), vitamin B12 deficiency, prior strokes, brain tumors, sleep disorders, depression, anxiety, chronic pain, and medication effects. - Order MRI brain to assess for neurodegenerative changes, prior strokes, or other structural causes. - Order serum vitamin B12 level. - Start vitamin B12 1,000 mcg daily. - Educated on potential causes of memory loss and rationale for MRI and B12 testing. - Follow-up pending MRI and lab results. 4. Obsessive-compulsive disorder, unspecified type (F42.9) 5. Recurrent major depressive disorder, remission status unspecified (F33.9) 6. CANDIDA (generalized anxiety disorder) (F41.1) - History of OCD, recurrent major depressive disorder (remission status unspecified), and generalized anxiety disorder; recent worsening of symptoms and medication side effects. - Refer to Dr. Tom Cai (geriatric psychiatry) for comprehensive psychiatric evaluation and medication management. - Advised to coordinate care through [facility] for streamlined communication. PATIENT INSTRUCTIONS: - A prescription for vitamin B12 1,000 mcg once daily has been sent to your pharmacy; you can have your B12 level drawn today without fasting. - A volumetric MRI of the brain has been ordered to evaluate for changes related to memory; please schedule this at a [facility] facility ([facility] [place]) before you leave--the scheduling team will assist with insurance authorization. - You ve been referred to Dr. Tom Cai, geriatric psychiatrist at [facility]; please make an appointment with him today at check-out. - Ensure both you and your have [facility] to view resultsand facilitate communication. - Once your MRI is complete, our office will review the findings and contact you to discuss next steps; you may also text or schedule a follow-up appointment if any questions arise. Any problems or concerns to call me or primary care physician immediately or go straight to the emergency department HISTORY OF PRESENT ILLNESS: Tom Khan is a 69-year-old male with a history of OCD, major depressive disorder, and generalizedanxiety disorder, presenting for evaluation of memory issues and restlessness. He is accompanied byhis , who provides additional history. Tom has been experiencing memory issues for the past 7-8 years. He underwent neuropsychological testing in 2019 and 2021, which indicated mild cognitive impairment. He reportedly declined a repeat battery of testing. He describes difficulty remembering positive aspects of his past, stating, A lot of this has to do with remembering the bad things I did in my past and not remembering the good things that I've done. He also reports feeling spiritually deficient and unwell, stating, I feel like I could faint anytime. Tom has a history of OCD, major depressive disorder, and generalized anxiety disorder, with a major mental breakdown in 2019. He was hospitalized in July and August of the past year and was started on an antipsychotic, which reportedly worsened his symptoms. His reports that he does notdo well when his Risperdal is lowered. She expresses concern that he may be overmedicated and is seeking a referral to a new psychiatrist. Tom also experiences akathisia, described as an inability to stop moving, which his attributes to his medications. He is currently taking vitamin D3 and requests a prescription for vitamin B12. Past Diagnostic Results: - (2021) Neuropsychological Testing: Mild cognitive impairment. - (2019) Neuropsychological Testing: Mild cognitive impairment. - (2017) Neuropsychological Testing: Mild cognitive impairment. COMPLETE REVIEW OF SYSTEMS: GENERAL: No weight loss, malaise or fevers RESPIRATORY: Negative for cough, hemoptysis, wheezing, COPD, dyspnea or shortness of breath CARDIOVASCULAR: Negative for chest pain, leg swelling, hypertension, CHF or palpitations GI: No nausea, vomiting, or diarrhea See HPI. All other systems reviewed and are negative. PAST MEDICAL HISTORY Diagnosis Date Anxiety state, unspecified Psychiatrist- Dr. Orourke (psychiatrist). with depression. CAD (coronary artery disease) Esophageal stricture Essential hypertension, benign Fracture Right arm Other and unspecified hyperlipidemia Other tear of cartilage or meniscus of knee, current left knee Personal history of colonic polyps Removed 2001 Primary osteoarthritis of right knee Retinal detachment with retinal defect, unspecified Detached retina with surgery. 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 CABG, ARTERY-VEIN, FIVE 10/09/08 DISCISSION,2ND CATARACT,LASER os Yag Capsulotomy EGD DILATION REMV LENS MATERIAL,PHACOFRAGMT os Cataract Extraction REPAIR DETACH RETINA,SCLERAL BUCKLE ou Scleral Buckle REPAIR ROTATOR CUFF,ACUTE VITRECTOMY,MECHANICAL os [place] Vitrectomy FAMILY HISTORY Problem Relation Age of Onset Diabetes Mother Stroke Mother Heart Father RI age 56 No Ocular Disease Other SOCIAL HISTORY[1] MEDICATIONS: Current Outpatient Medications Medication Sig Dispense Refill insulin lispro (ADMELOG SOLOSTAR U-100 INSULIN) 100 unit/mL Inject 4 Units subcutaneously three times a day before meals. TOUJEO MAX U-300 SOLOSTAR 300 unit/mL (3 mL) in Inject 42 Units subcutaneously daily at bedtime. semaglutide (OZEMPIC) 0.25 mg or 0.5 mg(2 mg/1.5 mL) pen Inject 2 mg subcutaneously one time a week. JARDIANCE 25 mg tablet Take 25 mg by mouth daily with breakfast. clopidogrel (PLAVIX) 75 mg tablet Take 75 mg by mouth once daily. aspirin, enteric coated (ASPIRIN, ENTERIC COATED) 81 mg EC tablet Take 81 mg by mouth once daily. atorvastatin (LIPITOR) 40 mg tablet Take 40 mg by mouth once daily. carvedilol (COREG) 12.5 mg tablet Take 12.5 mg by mouth two times a day. losartan (COZAAR) 25 mg tablet Take 25 mg by mouth once daily. spironolactone (ALDACTONE) 25 mg tablet Take 12.5 mg by mouth once daily. nitroglycerin sublingual (NITROQUICK) 0.4 mg SL tablet Dissolve 0.4 mg under the tongue every 5 minutes as needed. DULoxetine DR (CYMBALTA) 60 mg capsule Take 60 mg by mouth once daily. mirtazapine (REMERON) 15 mg tablet Take 15 mg by mouth daily at bedtime. busPIRone (BUSPAR) 10 mg tablet Take 10 mg by mouth two times a day. divalproex sprinkle (DEPAKOTE SPRINKLES) 125 mg capsule Take 250 mg by mouth two times a day. risperiDONE (RISPERDAL) 1 mg tablet Take 0.5 mg by mouth once daily. LORazepam (ATIVAN) 0.5 mg Take 0.5 mg by mouth every 6 hours as needed. amLODIPine (NORVASC) 10 mg tablet Take 10 mg by mouth. busPIRone (BUSPAR) 10 mg tablet Take 20 mg by mouth three times daily. pantoprazole DR (PROTONIX) 20 mg tablet Take 1 tablet by mouth once daily for 14 days. 14 tablet 0 semaglutide (OZEMPIC SUBCUTANEOUS) Inject 1 Dose subcutaneously one time a week. 50 mg weekly MEDICATION, NON-DATABASE supplements mupirocin (BACTROBAN) 2 % ointment Apply 0.5 inch with cotton swab (Q-tip) to each nostril in the morning and evening for 5 days prior to and including day of surgery. 22 g 0 chlorthalidone (HYGROTON) 25 mg tablet chlorthalidone 25 mg tablet cloNIDine HCl (CATAPRES) 0.1 mg tablet clonidine HCl 0.1 mg tablet TAKE 1 TABLET BY MOUTH THREE TIMES A DAY metFORMIN (GLUCOPHAGE) 500 mg tablet Take 500 mg by mouth twice daily with meals. No current facility-administered medications for this visit. Problem List ACTIVE PROBLEM LIST Senile Nuclear [...] Sleep Apnea Primary Osteoarthritis of Right Knee S/P Total Knee Arthroplasty, Right Obesity, Class II, Bmi 35-39.9 Mci (Mild Cognitive Impairment) Memory Loss Cognitive Communication Deficit ALLERGIES: ALLERGIES No Known Allergies PHYSICAL EXAM: BP 130/62 Pulse 81 General appearance: well appearing, alert, and in no acute distress Skin: skin color, texture, turgor normal, no rashes or lesions Head: normal MINI-MENTAL STATE EXAMINATION (MMSE) Make the patient comfortable and establish rapport. Ask questions in the order listed. Total possible score is 30. ORIENTATION 1. What is the (year) (season) (date) (day) (month)? Max score=5 Patient's score=5 2. Where are we? (state) (county) (town or city) (hospital) (floor)? Max score=5 Patient's score=3 REGISTRATION Ask the patient if you may test his/her memory. Then say the names of 3 unrelated objects, clearly and slowly, about one second for each (eg, apple, table, catrachito). After you have said all 3, ask him/her to repeat them. This first repetition determines the score(0-3), but keep saying them until he/she can repeat all 3, up to 6 trials. Max score=3 Patient's score=3 ATTENTION AND CALCULATION Ask the patient to begin with 100 and count backwards by 7. Stop after 5 subtractions (93, 86, 79, 72, 65). Score the total number of correct answers. If the patient cannot or will not perform the serial 7s task, ask him/her to spell the word WORLD backwards. The score is the number of letters in the correct order (eg, DLROW=5; DLRW=4; DLORW, DLW=3; OW=2; DRLWO=1). Max score=5 Patient's score=5 RECALL Ask the patient to recall the 3 items repeated above (eg, apple, table, catrachito). Max score=3 Patient's score=3 LANGUAGE Naming: Show the patient a wristwatch and ask him/her what it is. Repeat for pencil. Max score=2 Patient's score=2 Repetition: Ask the patient to repeat the phrase No ifs, ands, or buts: after you. Max score=1 Patient's score=1 3-Stage Command: Give the patient a piece of blank paper and ask him/her to take a piece of paper in your right hand, fold it in half, put it on the floor. Score 1 point for each part correctly executed. Max score=3 Patient's score=3 Reading: On a blank piece of paper, print the sentence CLOSE YOUR EYES in letters large enough for the patient to see clearly. Ask him/her to read it and do what it says. Score 1 point only if he/sheactually closes his/her eyes. Max score=1 Patient's score=1 Writing: Give the patient a blank piece of paper and ask him/her to write a sentence. Do not dictate a sentence; it is to be written spontaneously. It must contain a subject and verb and be sensible.Correct grammar and punctuation are not necessary. Max score=1 Patient's score=1 Copying: Ask the patient to copy the figure of intersecting pentagons exactly as it is. All 10 angles must be present and 2 must intersect to form a 4-sided figure to score 1 point. Tremor and rotation are ignored. Max score=1 Patient's score=1 MAXIMUM TOTAL SCORE = 30 TOTAL SCORE = 28/30 Suggested guideline for determining the severity of cognitive impairment: Mild: MMSE>21 Moderate: MMSE 10-20 Severe: MMSE<9 Expected decline in MMSE scores in untreated mild to moderate Alzheimer's patient is 2 to 4 points per year. *Adapted from Folstein et al.1 and Brian and Folstein2. (c) 1974, 1997 [employer] Used withpermission. References: 1. Folstein MF, Folstein SE, [place]. Mini-Mental State: a practical method for grading the cognitive state of patients for the clinician. J Psychiatr Res. 1975; 12:189-198. 2. Brian JR, Folstein MF, Mini-Mental State Examination (MMSE). Psychopharm Bull. 1988;24:689-692. 3. Dipti JT, Sharri FJ, Marcela RD, Star A, Brandie F. Neuropsychological function in Alzheimer's disease: pattern of impairment and rates of progression. Arch Neurol. 1988;45:263-268. 4. Mercedes SWAIN, Ivis B,Wilian BurgerP, Emil FALK. Predictors of cognitive and functional progression in patients with probable Alzheimer's disease. Neurology. 1992;42:2987-7762. Neurological exam: Mental Status: Alert, oriented to person, place and time and Follows commands. Language: Comprehension intact? (simple commands - Yes, complex commands Yes), Fluency intact? Yes,repetition intact? Yes, reading intact? Yes, naming intact? Yes. Cranial Nerves: CNII: Visual acuity normal, Visual garcia full to confrontation CNIII, IV, : Pupils equal, round and reactive to light, full extraoccular movements without nystagmus CN V: Facial sensation intact bilaterally to fine touch and pinprick, masseter 5/5 CN VII: Facial muscles symmetric and strong CN VIII: Hears finger rub well bilaterally CN IX: Deferred CN X: Palate elevates symmetrically CN XI: Full strength shoulder shrug bilaterally CN XII: Tongue protrusion full and midline Non-Dilated Fundiscopic Examination: Deferred Deferred Examination Motor Exam: Muscle bulk: Normal b/l Muscle Tone: Normal Muscle Power: Muscle Power: Moved all four extremities spontaneously with no focal motor weakness Reflexes: Symmetrically present Plantars: flexor Sensation: Sensation is intact to light touch Coordination: Finger-to- nose-finger intact bilaterally. Gait: Patient's gait is normal No follow-ups on file. Rodrigue Jj MD I spent a total of 45 minutes on the date of the service which included preparing to see the patient, [id number] patient care, completing clinical documentation, obtaining and/or reviewing separately obtained history, performing a medically appropriate examination, counseling and educating the pat ient/family/caregiver, and ordering medications, tests, or procedures. Recording using ambient Blue Box software for draft documentation of the visit was discussed with the patient/authorized retail representative; all questions welcomed and answered. Patient/authorized retail representative agreed to proceed Signature Rodrigue Jj MD Staff, Neurology May 14, 2025 1:56 PM [1] Social History Tobacco Use Smoking status: Never Smokeless tobacco: Never Vaping Use Vaping status: Never Used Substance Use Topics Alcohol use: Not Currently Alcohol/week: 2.0 standard drinks of alcohol Types: 2 Cans of beer per week Drug use: No [facility] NoteHNO ID: [id number] Author: RODRIGUE JJ MD Service: ? Author Type: Physician Type: Progress Notes Filed: 05/14/2025 14:38 Note Text:[facility]09-11-2025 History of Present illness Narrative* Rodrigue Jj MD - 05/14/2025 1:42 PM EDT documented [facility] Miscellaneous Notes* Telephone Encounter - Cris Mayes - 05/12/2025 9:34 AM EDT states he has been having issues with his tongue burning and says its very painful. Could thisbe related to having diabetes or a medication he is taking? * Telephone Encounter - Alea Mckenzie MD - 05/12/2025 9:34 AM EDT I do not think it is secondary to diabetes. None of his diabetes medications have burning tongue asa known side effect. Please check with your family physician and dentist for further recommendations * Telephone Encounter - Cris Mayes - 05/12/2025 9:34 AM EDT informed. [facility] Telephone encounter Note* Telephone Encounter - Cris Mayes - 05/12/2025 9:34 AM EDT states he has been having issues with his tongue burning and says its very painful. Could thisbe related to having diabetes or a medication he is taking? [facility]09-09-[facility] Telephone encounter Note* Telephone Encounter - Alea Mckenzie MD - 05/12/2025 9:34 AM EDT I do not think it is secondary to diabetes. None of his diabetes medications have burning tongue asa known side effect. Please check with your family physician and dentist for further recommendations [facility]09-09-[facility] Telephone encounter Note* Telephone Encounter - Cris Mayes - 05/12/2025 9:34 AM EDT informed. [facility]09-02-[facility] Miscellaneous Notes* Telephone Encounter - Dorothy Sawyer RN - 05/05/2025 10:34 AM EDT Images from the original note were not included. Shanice Kline APRN-PROFESSOR OF SOCIOLOGY to SAMUEL Velázquez RN Hope M Lantz (Selected Message) 05/05/25 7:55 AM Result Note No significant narrowing. There is multilevel facet arthropathy. No further recommendations prior to follow up. * Telephone Encounter - Dorothy Sawyer RN - 05/05/2025 10:34 AM EDT Call to Tom and LEONOR to contact the office. * Telephone Encounter - Dorothy Sawyer RN - 05/05/2025 10:34 AM EDT Jaci returns call. Call to Jaci and informed of message and she states that it puts her mind at ease. documented in this encounterOhio [facility]09-02-2025 Telephone encounter Note* Telephone Encounter - Dorothy Sawyer RN - 05/05/2025 10:34 AM EDT Images from the original note were not included. Shanice Kline, SONIDO-PROFESSOR OF SOCIOLOGY to SAMUEL Velázquez RN Hope M Lantz (Selected Message) 05/05/25 7:55 AM Result Note No significant narrowing. There is multilevel facet arthropathy. No further recommendations prior to follow up. [facility]09-[facility] Telephone encounter Note* Telephone Encounter - Dorothy Sawyer RN - 05/05/2025 10:34 AM EDT Call to Tom and LEONOR to contact the office. [facility] Telephone encounter Note* Telephone Encounter - Dorothy Sawyer RN - 05/05/2025 10:34 AM EDT Jaci returns call. Call to Jaci and informed of message and she states that it puts her mind at ease. [facility]08-19-[facility] Miscellaneous Notes* Telephone Encounter - Lexi Scott RN - [...] we receive further direction. documented in this encounterOhio [facility]08-19-2025 Telephone encounter Note* Telephone Encounter - Lexi Scott RN - [...] his appointment is now pushed out longer. [facility] Phone: [phone] Telephone encounter Note* Telephone Encounter - Lexi Scott RN - 04/21/2025 8:52 AM EDT Spoke to Jaci and updated her on Tom's MRI results. Advised Jaci we would update the provider regarding her concerns to determine if there are any additional recommendations prior to Tom's follow up appointment. We will call her back when we receive further direction. [id number] Miscellaneous Notes* Telephone Encounter - Cris Mayes - 04/06/2025 4:07 PM EDT Jaci called stating pt has colonoscopy scheduled this . Takes 42u tresiba hs and admelog on ss. He was already told to hold ozempic. Please advise on day before and day of procedure for both insulins thanks. * Telephone Encounter - Alea Mckenzie MD - 04/06/2025 4:07 PM EDT The day of prep: Drop Humalog scale as follows: Under 150-none; 058-885-xwhz 5 units; 781-102-pjte 10 units; 710-155-eqqj 15 units; over 300-take 20 units Take 20 units Toujeo that night. The day of colonoscopy: Hold Humalog scale till after procedure. After procedure, resume usual Humalog scale. Take full dose Toujeo that night * Telephone Encounter - Cris Mayes - 04/06/2025 4:07 PM EDT Detailed message left . documented in this encounterOhio [facility]08-04-2025 Telephone encounter Note* Telephone Encounter - Cris Mayes - 04/06/2025 4:07 PM EDT Jaci called stating pt has colonoscopy scheduled this week. Takes 42u tresiba hs and admelog on ss. He was already told to hold ozempic. Please advise on day before and day of procedure for both insulins thanks. [facility]08-04-[facility] Telephone encounter Note* Telephone Encounter - Alea Mckenzie MD - 04/06/2025 4:07 PM EDT The day of prep: Drop Humalog scale as follows: Under 150-none; 172-020-sksp 5 units; 323-991-bpbg 10 units; 167-175-rvdp 15 units; over 300-take 20 units Take 20 units Toujeo that night. The day of colonoscopy: Hold Humalog scale till after procedure. After procedure, resume usual Humalog scale. Take full dose Toujeo that night [facility]08-04-20[facility] Telephone encounter Note* Telephone Encounter - Cris Mayes - 04/06/2025 4:07 PM EDT Detailed message left . [facility]07-30-[facility] History and physical note* HECTOR Navarrete - 04/01/2025 1:45 PM EDT PRE-ADMISSION TESTING HISTORY AND PHYSICAL EXAM DATE: 04/01/25 PCP: Leeann Castillo APRN-QI CHIEF COMPLAINT: incontinence HISTORY OF PRESENT ILLNESS: Tom Khan, a 69 y.o. White or male, presents to [facility] for a pre- surgical H&P for COLONOSCOPY DIAGNOSTIC / SCREENING with Tim Ibrahim MD on 04/09/25. The patient has been diagnosed with constipation . He is here with with who provides most of history. Patient has hx of anxiety anddepression and has mild cognitive impairment, possibly dementia. reports he had major back surgery and since then he has had issues with constipation, abdominal pain and incontinence. She believes his last colonoscopy was within 10 years. He has history of colon polyps.He denies nausea, vomiting, diarrhea, melena, hematochezia. They deny change in appetite and unexpected weight change. They d kwadwo family history of colorectal cancer. The patient reports post op nausea and vomiting. Today the patient is in usual state of health and denies acute complaints. PAST MEDICAL HISTORY: 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 ([facility]) 06/01/2022 Back pain CAD, multiple vessel 08/30/2023 Cardiomegaly Cataract CHF (congestive heart failure) ([facility]) Chronic diastolic CHF (congestive heart failure) ([facility]) 02/05/2023 Complaint of paresthesia 11/16/2022 Constipation 10/15/2023 Coronary arteriosclerosis 06/01/2022 Coronary artery disease 2009 CABG x5 COVID-19 Dental disease crowns, missing teeth Depression Deviated septum Diabetes mellitus type 2, controlled ([facility]) Difficult intravenous access OSEI (dyspnea on exertion) Esophageal stricture Fatigue 06/28/2011 Fractures Gallstones 04/03/2024 GERD (gastroesophageal reflux disease) H/O esophagogastroduodenoscopy dilatation Heart attack ([facility]) 10/06/2023 4 stents Hiatal hernia Hyperlipidemia Hypertension Hyponatremia Incontinence of bowel Incontinence of urine 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 Lower extremity weakness 09/20/2023 MCI (mild cognitive impairment) 02/25/2021 Memory loss Mild cognitive impairment Mixed anxiety and depressive disorder 09/07/2017 Mixed hyperlipidemia 06/28/2011 Last Assessment & Plan: Assessment: no meds currently ,stable Moderate episode of recurrent major depressive disorder ([facility]) 12/25/2022 MRSA (methicillin resistant Staphylococcus aureus) 1992 Obesity Obesity (BMI 30-39.9) 08/30/2023 BMI 36.54 Obsessive-compulsive [...] elevation myocardial infarction (STEMI) of inferior wall ([facility]) 10/15/2023 Type 2 diabetes mellitus with diabetic peripheral angiopathy without gangrene, with long-term current use of insulin ([facility]) 10/13/2019 Urinary retention Visual impairment glasses retinal detatchment Vitamin D deficiency Vitreous hemorrhage ([facility]) Vocal cord granuloma PAST SURGICAL HISTORY: Past Surgical History: Procedure Laterality Date BACK SURGERY Left Circumferential 09/21/2023 fusion CARDIAC CATHETERIZATION x4 CATARACT EXTRACTION, BILATERAL Bilateral COLONOSCOPY 2013 CORONARY ARTERY BYPASS GRAFT x5 ESOPHAGOGASTRODUODENOSCOPY dilatation EYE SURGERY Bilateral x3 LAMINECTOMY LUMBAR SINGLE LEVEL / L4/5 N/A 09/21/2023 Performed by Bobbi Steen MD at [facility] POSTERIOR LAMINECTOMY FUSION LUMBAR SINGLE LEVEL / L4/5 N/A 09/21/2023 Performed by Bobbi Steen MD at [facility] REPLACEMENT TOTAL KNEE Bilateral REVISION OF SCLERAL BUCKLE Bilateral ROTATOR CUFF REPAIR Left SEPTOPLASTY FAMILY HISTORY: Family History Problem Relation Age of Onset Diabetes Mother Hypertension Mother Heart disease Father Hyperlipidemia Father Hypertension Father Inflammatory bowel disease Neg Hx Cirrhosis Neg Hx Colon cancer Neg Hx SOCIAL HISTORY: The patient reports that he does not currently use alcohol. He reports that he has never smoked. He has never used smokeless tobacco. He reports no history of drug use. ALLERGIES: No Known Allergies MEDICATIONS: Current Outpatient Medications: acetaminophen (TYLENOL EXTRA STRENGTH) [...] 1 cholecalciferol, vitamin D3, 5,000 units tablet, TAKE 1 TABLET (5,000 UNITS TOTAL) BY MOUTH IN THE MORNING., Disp: 90 tablet, Rfl: 3 clopidogreL (PLAVIX) 75 mg tablet, Take 1 tablet (75 mg total) by mouth nightly., Disp: , Rfl: divalproex sprinkle (DEPAKOTE SPRINKLE) 125 mg capsule, Take 2 capsules (250 mg total) by mouth in the morning and 2 capsules (250 mg total) before bedtime., Disp: , Rfl: DULoxetine (CYMBALTA) 60 mg capsule, Take 1 capsule (60 mg total) by mouth in the morning., Disp: ,Rfl: gentamicin (GARAMYCIN) 0.1 % ointment, Apply 1 Application topically., Disp: , Rfl: JARDIANCE 25 mg tablet tablet, TAKE 1 TABLET (25 MG TOTAL) BY MOUTH IN THE MORNING, Disp: 90 tablet, Rfl: 3 LORazepam (ATIVAN) 0.5 mg tablet, Take 1 tablet (0.5 mg total) by mouth every 6 (six) hours as needed., Disp: , Rfl: losartan (COZAAR) 25 mg tablet, Take 1 tablet (25 mg total) by mouth in the morning., Disp: , Rfl: melatonin (CIRCADIN) tablet, Take 2 tablets (6 mg total) by mouth nightly. 1-2 tabs as needed nightly, Disp: , Rfl: mirtazapine (REMERON) 15 mg tablet, Take 1 tablet (15 mg total) by mouth once daily at bedtime., Disp: , Rfl: omega 9-hxq-wal-fish oil (Fish OiL) 300-1,000 mg capsule, Take by mouth Daily at 0300., Disp: , Rfl: risperiDONE (RisperDAL) 0.5 mg tablet, Take 1 tablet (0.5 mg total) by mouth in the morning and 1 tablet (0.5 mg total) before bedtime., Disp: , Rfl: semaglutide (OZEMPIC) 2 mg/dose (8 mg/3 mL) pen injector, Inject 2 mg under the skin every 7 days.,Disp: 9 mL, Rfl: 3 spironolactone (ALDACTONE) 25 mg tablet, Take 0.5 tablets (12.5 mg total) by mouth in the morning.,Disp: , Rfl: PRABHAKARUJSO MAX U-300 SOLOSTAR 300 unit/mL (3 mL) insulin pen, Inject 42 Units under the skin in the morning. Up to 75 units daily. (Patient taking differently: Inject 42 Units under the skin nightly. Up to 75 units nightly), Disp: , Rfl: bisacodyL (DULCOLAX) 5 mg EC tablet, Take 1 tablet (5 mg total) by mouth daily as needed for constipation., Disp: 4 tablet, Rfl: 0 nitroglycerin (NITROSTAT) 0.4 MG SL tablet, , Disp: , Rfl: polyethylene glycol (GoLYTELY) 236-22.74-6.74 -5.86 gram solution, Please follow office colonoscopyinstructions., Disp: 4000 mL, Rfl: 0 potassium chloride (KLOR-CON SPRINKLE) 10 MEQ CR capsule, Take 1 capsule (10 mEq total) by mouth asneeded. Per Dr. Watts (Patient not taking: Reported on 04/01/2025), Disp: , Rfl: REVIEW OF SYSTEMS: Review of Systems Constitutional: Negative for fever and chills. HENT: Positive for dental problem. Negative for congestion and rhinorrhea. Eyes: Positive for visual disturbance. Negative for pain and redness. Respiratory: Positive for apnea (sleep). Negative for cough and shortness of breath. Cardiovascular: Negative for chest pain and palpitations. Gastrointestinal: Positive for constipation. Negative for nausea, vomiting, abdominal pain and diarrhea. GERD Genitourinary: Negative for dysuria and frequency. Musculoskeletal: Positive for back pain and arthralgias. Skin: Negative for rash and wound. Neurological: Negative for dizziness and headaches. VITAL SIGNS: BP 114/55 Pulse 82 Temp 36.2 C (97.2 F) (Tympanic) Resp 18 Ht 180 cm (5' 10.87 ) Wt 118.4kg (261 lb 0.4 oz) SpO2 98% BMI 36.54 kg/m PHYSICAL EXAM: Physical Exam Vitals reviewed. Constitutional: Appearance: Normal appearance. HENT: Head: Normocephalic and atraumatic. Mouth/Throat: Pharynx: Oropharynx is clear. No oropharyngeal exudate or posterior oropharyngeal erythema. Comments: Mallampati II Eyes: General: Right eye: No discharge. Left eye: No discharge. Conjunctiva/sclera: Conjunctivae normal. Cardiovascular: Rate and Rhythm: Normal rate and regular rhythm. Pulmonary: Effort: Pulmonary effort is normal. Breath sounds: Normal breath sounds. Abdominal: Palpations: Abdomen is soft. Tenderness: There is no abdominal tenderness. Musculoskeletal: Cervical back: Normal range of motion. Right lower leg: No edema. Left lower leg: No edema. Skin: General: Skin is warm and dry. Neurological: General: No focal deficit present. Mental Status: He is alert and oriented to person, place, and time. Psychiatric: Mood and Affect: Mood normal. Behavior: Behavior normal. RECENT LABS: Lab Results Component Value Date WBC 7.6 01/28/2025 HGB 13.8 01/28/2025 HCT 40.6 01/28/2025 PLT 243 01/28/2025 INR 1.0 12/31/2024 PTT 28 12/31/2024 SODIUM 132 (L) 01/18/2025 K 4.6 01/18/2025 CL 105 01/18/2025 CO2 21 (L) 01/18/2025 CALCIUM 8.9 01/18/2025 ALKPHOS 64 01/28/2025 ALBUMIN 4.3 01/28/2025 GLU 132 (H) 01/18/2025 HGBA1C 9.6 (H) 06/26/2022 ALT 21 01/28/2025 AST 20 01/28/2025 CREATININE 0.93 01/18/2025 BUN 27 01/18/2025 GFR >60 11/22/2018 GFR >60 11/22/2018 TSH 1.35 11/16/2023 PSA 1.18 12/10/2024 *Please note that labs listed above are the most recent lab values available in [facility] at the time ofthe office visit and additional labs may have been drawn since that time. ASSESSMENT / DIAGNOSIS: constipation PLAN: Tom Khan is scheduled for COLONOSCOPY DIAGNOSTIC / SCREENING with Tim Ibrahim MD on 04/09/25 HECTOR Navarrete 04/01/25 [id number] [employer] Work Phone: [phone] 871-762807-30-2025 History and physical note* HECTOR Navarrete - 04/01/2025 1:45 PM EDT PRE-ADMISSION TESTING HISTORY AND PHYSICAL EXAM DATE: 04/01/25 PCP: TERRY Monteiro CHIEF COMPLAINT: incontinence HISTORY OF PRESENT ILLNESS: Tom Khan, a 69 y.o. White or male, presents to [facility] for a pre- surgical H&P for COLONOSCOPY DIAGNOSTIC / SCREENING with Tim Ibrahim MD on 04/09/25. The patient has been diagnosed with constipation . He is here with with who provides most of history. Patient has hx of anxiety anddepression and has mild cognitive impairment, possibly dementia. reports he had major back surgery and since then he has had issues with constipation, abdominal pain and incontinence. She believes his last colonoscopy was within 10 years. He has history of colon polyps.He denies nausea, vomiting, diarrhea, melena, hematochezia. They deny change in appetite and unexpected weight change. They d kwadwo family history of colorectal cancer. The patient reports post op nausea and vomiting. Today the patient is in usual state of health and denies acute complaints. PAST MEDICAL HISTORY: 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 ([facility]) 06/01/2022 Back pain CAD, multiple vessel 08/30/2023 Cardiomegaly Cataract CHF (congestive heart failure) ([facility]) Chronic diastolic CHF (congestive heart failure) ([facility]) 02/05/2023 Complaint of paresthesia 11/16/2022 Constipation 10/15/2023 Coronary arteriosclerosis 06/01/2022 Coronary artery disease 2009 CABG x5 COVID-19 Dental disease crowns, missing teeth Depression Deviated septum Diabetes mellitus type 2, controlled ([facility]) Difficult intravenous access OSEI (dyspnea on exertion) Esophageal stricture Fatigue 06/28/2011 Fractures Gallstones 04/03/2024 GERD (gastroesophageal reflux disease) H/O esophagogastroduodenoscopy dilatation Heart attack ([facility]) 10/06/2023 4 stents Hiatal hernia Hyperlipidemia Hypertension Hyponatremia Incontinence of bowel Incontinence of urine 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 Lower extremity weakness 09/20/2023 MCI (mild cognitive impairment) 02/25/2021 Memory loss Mild cognitive impairment Mixed anxiety and depressive disorder 09/07/2017 Mixed hyperlipidemia 06/28/2011 Last Assessment & Plan: Assessment: no meds currently ,stable Moderate episode of recurrent major depressive disorder ([facility]) 12/25/2022 MRSA (methicillin resistant Staphylococcus aureus) 1991 Obesity Obesity (BMI 30-39.9) 08/30/2023 BMI 36.54 Obsessive-compulsive [...] elevation myocardial infarction (STEMI) of inferior wall ([facility]) 10/15/2023 Type 2 diabetes mellitus with diabetic peripheral angiopathy without gangrene, with long-term current use of insulin ([facility]) 10/13/2019 Urinary retention Visual impairment glasses retinal detatchment Vitamin D deficiency Vitreous hemorrhage ([facility]) Vocal cord granuloma PAST SURGICAL HISTORY: Past Surgical History: Procedure Laterality Date BACK SURGERY Left Circumferential 09/21/2023 fusion CARDIAC CATHETERIZATION x4 CATARACT EXTRACTION, BILATERAL Bilateral COLONOSCOPY 2012 CORONARY ARTERY BYPASS GRAFT x5 ESOPHAGOGASTRODUODENOSCOPY dilatation EYE SURGERY Bilateral x3 LAMINECTOMY LUMBAR SINGLE LEVEL / L4/5 N/A 09/21/2023 Performed by Bobbi Steen MD at [facility] POSTERIOR LAMINECTOMY FUSION LUMBAR SINGLE LEVEL / L4/5 N/A 09/21/2023 Performed by Bobbi Steen MD at [facility] REPLACEMENT TOTAL KNEE Bilateral REVISION OF SCLERAL BUCKLE Bilateral ROTATOR CUFF REPAIR Left SEPTOPLASTY FAMILY HISTORY: Family History Problem Relation Age of Onset Diabetes Mother Hypertension Mother Heart disease Father Hyperlipidemia Father Hypertension Father Inflammatory bowel disease Neg Hx Cirrhosis Neg Hx Colon cancer Neg Hx SOCIAL HISTORY: The patient reports that he does not currently use alcohol. He reports that he has never smoked. He has never used smokeless tobacco. He reports no history of drug use. ALLERGIES: No Known Allergies MEDICATIONS: Current Outpatient Medications: acetaminophen (TYLENOL EXTRA STRENGTH) [...] 1 cholecalciferol, vitamin D3, 5,000 units tablet, TAKE 1 TABLET (5,000 UNITS TOTAL) BY MOUTH IN THE MORNING., Disp: 90 tablet, Rfl: 3 clopidogreL (PLAVIX) 75 mg tablet, Take 1 tablet (75 mg total) by mouth nightly., Disp: , Rfl: divalproex sprinkle (DEPAKOTE SPRINKLE) 125 mg capsule, Take 2 capsules (250 mg total) by mouth in the morning and 2 capsules (250 mg total) before bedtime., Disp: , Rfl: DULoxetine (CYMBALTA) 60 mg capsule, Take 1 capsule (60 mg total) by mouth in the morning., Disp: ,Rfl: gentamicin (GARAMYCIN) 0.1 % ointment, Apply 1 Application topically., Disp: , Rfl: JARDIANCE 25 mg tablet tablet, TAKE 1 TABLET (25 MG TOTAL) BY MOUTH IN THE MORNING, Disp: 90 tablet, Rfl: 3 LORazepam (ATIVAN) 0.5 mg tablet, Take 1 tablet (0.5 mg total) by mouth every 6 (six) hours as needed., Disp: , Rfl: losartan (COZAAR) 25 mg tablet, Take 1 tablet (25 mg total) by mouth in the morning., Disp: , Rfl: melatonin (CIRCADIN) tablet, Take 2 tablets (6 mg total) by mouth nightly. 1-2 tabs as needed nightly, Disp: , Rfl: mirtazapine (REMERON) 15 mg tablet, Take 1 tablet (15 mg total) by mouth once daily at bedtime., Disp: , Rfl: omega 0-mee-kyt-fish oil (Fish OiL) 300-1,000 mg capsule, Take by mouth Daily at 0300., Disp: , Rfl: risperiDONE (RisperDAL) 0.5 mg tablet, Take 1 tablet (0.5 mg total) by mouth in the morning and 1 tablet (0.5 mg total) before bedtime., Disp: , Rfl: semaglutide (OZEMPIC) 2 mg/dose (8 mg/3 mL) pen injector, Inject 2 mg under the skin every 7 days.,Disp: 9 mL, Rfl: 3 spironolactone (ALDACTONE) 25 mg tablet, Take 0.5 tablets (12.5 mg total) by mouth in the morning.,Disp: , Rfl: TOUJEO MAX U-300 SOLOSTAR 300 unit/mL (3 mL) insulin pen, Inject 42 Units under the skin in the morning. Up to 75 units daily. (Patient taking differently: Inject 42 Units under the skin nightly. Up to 75 units nightly), Disp: , Rfl: bisacodyL (DULCOLAX) 5 mg EC tablet, Take 1 tablet (5 mg total) by mouth daily as needed for constipation., Disp: 4 tablet, Rfl: 0 nitroglycerin (NITROSTAT) 0.4 MG SL tablet, , Disp: , Rfl: polyethylene glycol (GoLYTELY) 236-22.74-6.74 -5.86 gram solution, Please follow office colonoscopyinstructions., Disp: 4000 mL, Rfl: 0 potassium chloride (KLOR-CON SPRINKLE) 10 MEQ CR capsule, Take 1 capsule (10 mEq total) by mouth asneeded. Per Dr. Watts (Patient not taking: Reported on 04/01/2025), Disp: , Rfl: REVIEW OF SYSTEMS: Review of Systems Constitutional: Negative for fever and chills. HENT: Positive for dental problem. Negative for congestion and rhinorrhea. Eyes: Positive for visual disturbance. Negative for pain and redness. Respiratory: Positive for apnea (sleep). Negative for cough and shortness of breath. Cardiovascular: Negative for chest pain and palpitations. Gastrointestinal: Positive for constipation. Negative for nausea, vomiting, abdominal pain and diarrhea. GERD Genitourinary: Negative for dysuria and frequency. Musculoskeletal: Positive for back pain and arthralgias. Skin: Negative for rash and wound. Neurological: Negative for dizziness and headaches. VITAL SIGNS: BP 114/55 Pulse 82 Temp 36.2 C (97.2 F) (Tympanic) Resp 18 Ht 180 cm (5' 10.87 ) Wt 118.4kg (261 lb 0.4 oz) SpO2 98% BMI 36.54 kg/m PHYSICAL EXAM: Physical Exam Vitals reviewed. Constitutional: Appearance: Normal appearance. HENT: Head: Normocephalic and atraumatic. Mouth/Throat: Pharynx: Oropharynx is clear. No oropharyngeal exudate or posterior oropharyngeal erythema. Comments: Mallampati II Eyes: General: Right eye: No discharge. Left eye: No discharge. Conjunctiva/sclera: Conjunctivae normal. Cardiovascular: Rate and Rhythm: Normal rate and regular rhythm. Pulmonary: Effort: Pulmonary effort is normal. Breath sounds: Normal breath sounds. Abdominal: Palpations: Abdomen is soft. Tenderness: There is no abdominal tenderness. Musculoskeletal: Cervical back: Normal range of motion. Right lower leg: No edema. Left lower leg: No edema. Skin: General: Skin is warm and dry. Neurological: General: No focal deficit present. Mental Status: He is alert and oriented to person, place, and time. Psychiatric: Mood and Affect: Mood normal. Behavior: Behavior normal. RECENT LABS: Lab Results Component Value Date WBC 7.6 01/28/2025 HGB 13.8 01/28/2025 HCT 40.6 01/28/2025 PLT 243 01/28/2025 INR 1.0 12/31/2024 PTT 28 12/31/2024 SODIUM 132 (L) 01/18/2025 K 4.6 01/18/2025 CL 105 01/18/2025 CO2 21 (L) 01/18/2025 CALCIUM 8.9 01/18/2025 ALKPHOS 64 01/28/2025 ALBUMIN 4.3 01/28/2025 GLU 132 (H) 01/18/2025 HGBA1C 9.6 (H) 06/26/2022 ALT 21 01/28/2025 AST 20 01/28/2025 CREATININE 0.93 01/18/2025 BUN 27 01/18/2025 GFR >60 11/22/2018 GFR >60 11/22/2018 TSH 1.35 11/16/2023 PSA 1.18 12/10/2024 *Please note that labs listed above are the most recent lab values available in [facility] at the time ofthe office visit and additional labs may have been drawn since that time. ASSESSMENT / DIAGNOSIS: constipation PLAN: Tom Khan is scheduled for COLONOSCOPY DIAGNOSTIC / SCREENING with Tim Ibrahim MD on 04/09/25 HECTOR Navarrete 04/01/25 [id number] documented in [facility] encounter[facility] Instructions* Patient Instructions* Flaquita Wan RN - 04/01/2025 1:45 PM EDT Pre-Surgery Instructions: Medication Instructions acetaminophen (TYLENOL EXTRA STRENGTH) 500 mg tablet Continue as prescribed, DO NOT take morning ofprocedure ADMELOG SOLOSTAR U-100 INSULIN 100 unit/mL insulin pen Check with prescribing doctor for instructions aspirin 81 mg Stop taking 1 week prior to procedure atorvastatin (LIPITOR) 40 mg tablet Continue as prescribed, take morning of procedure busPIRone (BUSPAR) 10 mg tablet Continue as prescribed, DO NOT take morning of procedure carvediloL (COREG) 12.5 mg tablet Continue as prescribed, take morning of procedure cholecalciferol, vitamin D3, 5,000 units tablet Continue as prescribed, DO NOT take morning of procedure clopidogreL (PLAVIX) 75 mg tablet Stop taking 5 days prior to procedure divalproex sprinkle (DEPAKOTE SPRINKLE) 125 mg capsule Continue as prescribed, take morning of procedure DULoxetine (CYMBALTA) 60 mg capsule Continue as prescribed, take morning of procedure gentamicin (GARAMYCIN) 0.1 % ointment Continue as prescribed, DO NOT take morning of procedure JARDIANCE 25 mg tablet tablet Stop taking 3 days prior to procedure LORazepam (ATIVAN) 0.5 mg tablet Continue as prescribed, DO NOT take morning of procedure losartan (COZAAR) 25 mg tablet Continue as prescribed, DO NOT take morning of procedure melatonin (CIRCADIN) tablet Continue as prescribed, DO NOT take morning of procedure mirtazapine (REMERON) 15 mg tablet Continue as prescribed, DO NOT take morning of procedure omega 1-ifr-fss-fish oil (Fish OiL) 300-1,000 mg capsule Stop taking 1 week prior to procedure risperiDONE (RisperDAL) 0.5 mg tablet Continue as prescribed, DO NOT take morning of procedure semaglutide (OZEMPIC) 2 mg/dose (8 mg/3 mL) pen injector Stop taking 7 days prior to procedure spironolactone (ALDACTONE) 25 mg tablet Continue as prescribed, take morning of procedure TOUJEO MAX U-300 SOLOSTAR 300 unit/mL (3 mL) insulin pen Check with prescribing doctor for instructions bisacodyL (DULCOLAX) 5 mg EC tablet Check with prescribing doctor for instructions nitroglycerin (NITROSTAT) 0.4 MG SL tablet Not Applicable polyethylene glycol (GoLYTELY) 236-22.74-6.74 -5.86 gram solution Check with prescribing doctor forinstructions potassium chloride (KLOR-CON SPRINKLE) 10 MEQ CR capsule Continue as prescribed, DO NOT take morning of procedure SURGERY DATE: 04/09/25 ARRIVAL TIME: 11:00 am COLONOSCOPY [facility]: Entrance # [facility] Center next to the Emergency Center. Bring a photo ID and your insurance card with you the day of surgery. If you have a Living Will/Durable Power of Business Development Consultant for Health Care which is not on file, please bring a copy with you the day of surgery. Please wash the night before and the morning of surgery (tub bath or shower). DO NOT apply deodorant, powder, lotion, aftershave, perfume, make-up, nail zambian. HOLD ASPIRIN and ASPIRIN PRODUCTS for 7 days prior to surgery. IF you have been prescribed ASPIRIN by your Apple Picker or primary care physician, CONTACT Apple Picker or physician about holding aspirin for surgery. HOLD BLOOD THINNERS as directed by prescribing doctor in COLLABORATION with surgeon. HOLD: Plavix 5 days prior to procedure as Okayed by prescribing doctor. HOLD NSAIDs - Ibuprofen, Motrin, Aleve, Celebrex, mobic, meloxicam, etc. for 3 days prior to surgery. You may use Tylenol. HOLD vitamins, minerals, herbal supplements, and Holistic supplements for 7 days prior to surgery. Examples: Ephedra, garlic, gingko, ginseng, fish oil, (Lovaza, Vascepa), Kava, Vitamin E, Saw [place]ich[place], [place]'s Wort, Monica, Vitamin E). (exceptions - continue taking iron if you are anemic). DIABETIC MEDICATIONS/ WEIGHT LOSS MEDICATIONS: IF you take INSULIN or have an INSULIN PUMP, contact your prescribing doctor now for instructions on how to manage this the night before and the morning of surgery. IF you take Invokana, Jardiance, Farxiga, HOLD for 3 days prior to surgery. IF you take Ozempic or Trulicity WEEKLY, HOLD 1 week prior to surgery. Follow SURGEON'S BOWEL PREP instructions; - When to STOP SOLID foods, - Which LIQUIDS you are allowed . - You may have CLEAR LIQUIDS up to 4 hours prior to the procedure. If medication must be taken during this fasting period, take medication with a tiny sip of water. If you have a SPINAL CORD STIMULATOR, be sure remote is fully charged. BRING remote day of surgery. If you wear DENTURES, DO NOT use adhesive day of surgery. If you wear HEARING AIDS, WEAR THEM to pre-op on the day of surgery. If you use a C-pap or Bi-pap, you may bring it day of surgery. Choose a responsible adult to accompany you to the hospital that will be able to: -remain at the hospital during your procedure. -drive you home after your surgery. -stay with you in your home for 24 hours after your procedure. You must NOT drive any vehicle or operate any machinery for 24 hours OR until okay with surgeon. When you dress for your surgery, please wear loose fitting clothing appropriate for your surgical procedure. Do NOT wear jewelry or watches. ALL piercing's must be removed. Do NOT wear eye contacts to the hospital. Bring glasses if you need them. The anesthesiologist will talk to you the day of the surgery. You will be asked to sign an anesthesia consent form. documented in this encounterOhio Valley Surgical Hospital07-30-2025 History of Present illness Narrative* Mc Chatman, DPM - 04/01/2025 10:45 AM EDT Images from the original note were not included. Subjective Patient ID: Tom Khan is a 69 y.o. male who presents for Foot Wound Check (Pt is here today for wound FUV, he states the wound is looking good. /BS: 110 A1C: 6.6). HPI Established patient returns to clinic for ulceration check posterior Achilles, right foot. He has not noticed much drainage. Review of Systems Constitutional: Negative for activity [...] the morning and 5 mg before bedtime. (Patientnot taking: Reported on 03/11/2025), Disp: , Rfl: [...] 60 mg by mouth in the morning. (Patientnot taking: Reported on 03/11/2025), Disp: , Rfl: [...] (five) minutes if needed, Disp: , Rfl: [place]-3 Fatty Acids (Fish Oil) 1200 MG capsule [...] mouth Daily as needed (Patient not taking: Reportedon 02/23/2025), Disp: , Rfl: spironolactone (Aldactone) 25 MG tablet, Take by mouth Daily 1/2 tab daily, Disp: , Rfl: Gian Max SoloStar 300 UNIT/ML injection, Inject 42 [...] refill takes 2 to 3 seconds. Comments: Ulcer #1 Ulcer location: Posterior Achilles, right Ulcer size: 04/01/2025: Epithelialized 03/17/2025: 0.6 x 1 x 0.1 cm Other characteristics: No drainage. Neurological: Mental Status: He is alert. Comments: Protective sensation intact at 3/10 pedal sites Vibratory sensation diminished at the 1st MTP bilaterally. Psychiatric: Mood and Affect: Mood normal. Behavior: Behavior normal. Assessment/Plan ICD-10-CM 1. Diabetic polyneuropathy associated with type 2 diabetes mellitus (HCC) E11.42 2. Corns and callosities L84 Patient examined and evaluated. His wound has completely epithelialized today and there is no drainage. He is still not wearing any socks with his shoes and I do recommend that he wear socks at all times to reduce shear forces, rubbing and risk of ulceration. I asked him to keep a close eye on the feet and to monitor for re ulceration. He will call us immediately if there is any concern for re ulceration. Follow up 10 weeks for high-risk diabetic foot check. This note was created with the assistance of a speech recognition program. While intending to generate a timely document that accurately reflects the content of the visit, no guarantee can be provided that every grammatical or spelling mistake has been or will be identified or corrected. Thank you for your understanding. Mc Chatman DPM documented in this encounterBates County Memorial [id number] History of Present illness Narrative* Shanice Kline APRN-QI - 03/24/2025 9:10 AM EDT Images from the original note were not included. [facility] [address] [place] [address], [address] [place] [address] * CHART NOTE ? 03/24/2025 Patient: Tom Khan 1955 [id number] Nurse Practitioner: Shanice Kline CNP Physician: Bobbi Steen MD, FAANS IMPRESSION / PLAN 69 y.o. male with numbness in his feet and calves, as well as, bowel incontinence. His imaging demonstrates a history of an L4-5.fusion. I will order a lumbar MRI and XR to investigate possible progression of his adjacent levels. He will follow up with the results of his studies. HISTORY OF PRESENT ILLNESS 69 y.o. male presents to the clinic as a follow up S/P L4-5 posterior laminectomy and fusion performed on 09-21-2023. He is visiting today, joined by his , with updated imaging. He denies any painin his lower back, but does notes numbness in his feet and calves. He admits to bowel incontinence,which he is not sure of the cause, citing both medication and mental health as possible answers. Denies loss of plate sensitizer strength, saddle anesthesia, urinary dysfunction, weakness, radicular symptoms,and loss of balance. Patient is diabetic and not a smoker. 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 ([facility]) 06/01/2022 Back pain CAD, multiple vessel 08/30/2023 Cardiomegaly Cataract Cataract, nuclear sclerotic senile, right 08/14/2018 Added automatically from request for surgery [id number] CHF (congestive heart failure) ([facility]) Chronic diastolic CHF (congestive heart failure) ([facility]) 02/05/2023 Complaint of paresthesia 11/16/2022 Constipation 10/15/2023 Coronary arteriosclerosis 06/01/2022 Coronary artery disease Status post CABG COVID-19 Dental disease crowns Depression Deviated septum Diabetes mellitus ([facility]) 08/30/2023 Diabetes mellitus type 2, controlled ([facility]) Difficult intravenous access OSEI (dyspnea on exertion) Esophageal reflux 08/30/2023 Esophageal stricture Fatigue 06/28/2011 Fractures Gallstone Gallstones 04/03/2024 GERD (gastroesophageal reflux disease) H/O esophagogastroduodenoscopy dilatation Heart attack ([facility]) 10/06/2023 4 stints Hiatal hernia Hyperlipidemia Hypertension Hyponatremia Incontinence of bowel Incontinence of urine 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 Lower extremity weakness 09/20/2023 MCI (mild cognitive impairment) 02/25/2021 Mild cognitive impairment Mixed anxiety and depressive disorder 09/07/2017 Mixed hyperlipidemia 06/28/2011 Last Assessment & Plan: Assessment: no meds currently ,stable Moderate episode of recurrent major depressive disorder ([facility]) 12/25/2022 Obesity Obesity (BMI 30-39.9) 08/30/2023 Obesity, [...] elevation myocardial infarction (STEMI) of inferior wall ([facility]) 10/15/2023 Type 2 diabetes mellitus with diabetic peripheral angiopathy without gangrene, with long-term current use of insulin ([facility]) 10/13/2019 Urinary retention Visual impairment glasses retinal detatchment Vitamin D deficiency Vitreous hemorrhage ([facility]) Vocal cord granuloma PAST SURGICAL HISTORY Past Surgical History: Procedure Laterality Date BACK SURGERY Left Circumferential 09/21/2023 fusion CATARACT EXTRACTION, BILATERAL Bilateral COLONOSCOPY 2012 CORONARY ARTERY BYPASS GRAFT ESOPHAGOGASTRODUODENOSCOPY dilatation EYE SURGERY Bilateral LAMINECTOMY LUMBAR SINGLE LEVEL / L4/5 N/A 09/21/2023 Performed by Bobbi Steen MD at [facility] POSTERIOR LAMINECTOMY FUSION LUMBAR SINGLE LEVEL / L4/5 N/A 09/21/2023 Performed by Bobbi Steen MD at [facility] REPLACEMENT TOTAL KNEE Bilateral ROTATOR CUFF REPAIR SEPTOPLASTY SOCIAL HISTORY Social History Socioeconomic History Marital status: Spouse [...] 60 min Stress: Stress Concern Present (04/17/2023) [place] [facility] [employer] - Occupational Stress Questionnaire [...] Risk (04/17/2023) Housing Instability Housing Instability: No REVIEW OF SYSTEMS ROS Positive Findings: Negative otherwise noted in the HPI PHYSICAL EXAMINATION Alert Oriented No percussion tenderness along spine Absent Lhermitte's Absent Spurling ROM of the low back is decreased No weakness No pathological reflexes No atrophy No fasciculations Sensation to light touch is decreased in the BLE MRI / IMAGES MR lumbar 06/10/25: IMPRESSION: Surgical changes related to lumbar fusion without evidence of complication. Mild multilevel degenerative disc disease contributing to mild spinal canal stenosis at L3-L4. Mildmultilevel foraminal stenosis from L3 to S1. Small Central disc protrusion at L4-L5. I interpreted the imaging studies independently and critical findings were anotated for the patient. Electronically Signed By: Shanice Kline CNP in conjunction with Bobbi Steen MD This note was created with the assistance of a speech recognition program with the goal of generating a timely record of the patient encounter. Inadvertent computerized weigher packing errors related to syntax, spelling, homophones, and/or inaudibility may be present. Scribe Statement: Scribed for and in the presence of Bobbi Steen MD by Willem Morris. Provider Statement: I, Bobbi Steen MD personally performed the services described in the documentation, as scribedby Willem Morris in my presence, and it is both accurate and complete Willem Morris 03/24/25 [id number] TERRY Aguayo 04/15/25 1605 documented in this encounterOhio Valley Surgical Hospital07-22-2025 Instructions* Patient Instructions* Yamile Evans - 03/24/2025 9:10 AM EDT Patient seen today by Dr. Steen MRI Lumbar spine w/o contrast Xray Lumbar flex/ext KM documented in this encounterOhio Valley Surgical Hospital07-17-2025 History of Present illness Narrative* Gita Watts, - 03/19/2025 11:20 AM EDT Chief [...] required evaluation in outside ER. Non-ST elevation RI in October 2023 with primary revascularization of the distal RCA and PLV branch and ramus branch with several drug-eluting stents and preserved LV function and notably patent PITTS-sequential graft LAD-diagonal the remainder is 3 bypass grafts are occluded. He remains on appropriate GDMT, we reviewed his interventional and Purse Seiner reports, medications and recent ER evaluation for [...] for up to 3 doses total. omega 6-sgi-bjd-fish oil (Fish OiL) 1,000 mg (120 mg-180 [...] exam, discussion and plan. documented in this [facility] Work Phone: [phone]) 339-368907-17-2025 Instructions* Patient Instructions* Lovely Torres LPN - 03/19/2025 [...] through Care Everywhere. * Preventing Falls ED (Thai) * Heart Healthy Diet (Thai) documented in this [facility] Work Phone: [phone] 194-632907-15-2025 History of Present illness Narrative* Mc Chatman DPM - 03/17/2025 4:15 PM EDT Images from the original note [...] the morning and 5 mg before bedtime. (Patientnot taking: Reported on 03/11/2025), Disp: , Rfl: [...] 60 mg by mouth in the morning. (Patientnot taking: Reported on 03/11/2025), Disp: , Rfl: [...] (five) minutes if needed, Disp: , Rfl: [place]-3 Fatty Acids (Fish Oil) 1200 MG capsule [...] mouth Daily as needed (Patient not taking: Reportedon 02/23/2025), Disp: , Rfl: spironolactone (Aldactone) 25 [...] of right foot with fat layer exposed ([facility]) L97.512 gentamicin (Garamycin) 0.1 % ointment 2. Contusion of lesser toe of left foot without damage to nail, subsequent encounter S90.122D 3. Dermatophytosis of nail B35.1 4. Dystrophic nail L60.3 5. Corns and callosities L84 6. Diabetic polyneuropathy associated with type 2 diabetes mellitus ([facility]) E11.42 Patient was examined and evaluated. 10 toenails were debrided in length and thickness today utilizing a nail nipper and electric bur soap grinder without incident. Sterile 15. Blade utilized by wi to reduce all hyperkeratotic tissue without incident. He has preulcerative lesion of the left 2nd toe and we will continue to monitor this closely. This is likely due to his hammertoe contracture which is semi flexible in nature. Consider flexor tenotomy/plantar capsulotomy in the future if he continues tohave issues with the toe and preulcerative lesions. Patient noted to have ulceration on the posterior Achilles, right. Selective debridement was performed on ulceration #1 with sterile 15. Blade downto the level of subcutaneous tissue to remove selective skin and nonviable tissue. Post debridementappearance of the wound: Granular with decreased bioburden and fibrotic slough. Ulceration was flushed with copious amounts of saline. Wound was dressed with Amerigel dressing. Prescription for gentamicin ointment sent to his pharmacy. Dressing should be changed daily. Wound offloaded with sandals.I have asked him to wear socks and [...] understanding. 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 Pt denies SI orHI. 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 Speech: Speech normal. Assessment/Plan ASSESSMENT/PLAN Tmo was seen today for follow-up. Diagnoses and all orders for this visit: Medicare annual wellness visit, subsequent Type 2 diabetes mellitus with diabetic peripheral angiopathy without gangrene, with long-term current use of insulin ([facility]) - TOUJEO MAX U-300 SOLOSTAR 300 unit/mL (3 mL) insulin pen; Inject 42 Units under the skin in the morning. Up to 75 units daily. Primary hypertension Pseudodementia - Ambulatory referral to Neurology (Non-[facility]); Future Obesity, morbid ([facility]) CAD, multiple vessel Mixed hyperlipidemia Moderate episode of recurrent major depressive disorder ([facility]) Gait disturbance Neuropsych evaluation He is scheduled with neurology and routinely sees psychiatry I recommend he hold off on shoulder placement as he is not having any profound shoulder symptoms. Neuropsych symptoms need better managed first. Recommend he does proceed with the colonoscopy however F/U 3 months TERRY Monteiro 03/20/25 0652 documented in this encounterOhio Valley Surgical Hospital06-23-2025 History of Present illness Narrative* Mc Chatman DPM - 02/23/2025 10:45 AM EDT Images from the original note were [...] mg by mouth in the morning., Disp: ,Rfl: furosemide (Lasix) 20 MG tablet, Take by [...] (five) minutes if needed, Disp: , Rfl: [place]-3 Fatty Acids (Fish Oil) 1200 MG capsule delayed-release, Take by mouth, Disp: , Rfl: Ozempic, 2 MG/DOSE, 8 MG/3ML solution pen-injector, , Disp: , Rfl: Potassium 99 MG tablet, Take by mouth, Disp: , Rfl: risperiDONE (RisperDAL) 1 MG tablet, Take 1 mg by mouth in the morning and 1 mg before bedtime. 1/2in AM, 1/2 in PM., Disp: , Rfl: [...] mouth Daily as needed (Patient not taking: Reportedon 02/23/2025), Disp: , Rfl: traZODone (Desyrel) 50 [...] polyneuropathy associated with type 2 diabetes mellitus ([facility]) E11.42 2. Ulcer of left foot with fat layer exposed ([facility]) L97.522 3. Hammer toe of left foot M20.42 Patient examined and evaluated. Thankfully his ulceration has healed. It is completely epithelialized today. He does have preulcerative lesions on the plantar hallux and the left 2nd toe as well. This is likely due to the hallux malleus and hammertoe contractures discussed. At this time I recommendclose observation of the area. Recommend that he perform regular pumice stone debridement on the hyperkeratotic tissue to reduce buildup and future ulceration. He will monitor the toes closely for any redness, drainage. We may have to consider percutaneous flexor tenotomy of the left 2nd toe if he c ontinues to have preulcerative lesion in this area. [...] understanding. Mc Chatman DPM documented in this encounterBates County Memorial HospitalFppiqqomyg96-17-2112 History of Present illness Narrative* Mc Chatman DPM - 02/03/2025 11:00 AM EDT Images from the original note were not included. Subjective Patient ID: Tom Khan is a 69 y.o. male who presents for Toe Problem (Established patient presents today for ulcer on LGT. Patient states he noticed it about a week ago, and also relates swelling, states it's been swollen for about 2 weeks. Patient rleates falling stubbing left 2nd toe, states hethinks it may be broken, states it was [...] History: Diagnosis Date CAD (coronary artery disease) ([facility]) Depression ([facility]) Diabetes ([facility]) TypeII HTN (hypertension) ([facility]) Medications Current Outpatient Medications: aspirin 81 MG [...] mg by mouth in the morning., Disp: ,Rfl: furosemide (Lasix) 20 MG tablet, Take by [...] (five) minutes if needed, Disp: , Rfl: [place]-3 Fatty Acids (Fish Oil) 1200 MG capsule delayed-release, Take by mouth, Disp: , Rfl: Ozempic, 2 MG/DOSE, 8 MG/3ML solution pen-injector, , Disp: , Rfl: Potassium 99 MG tablet, Take by mouth, Disp: , Rfl: risperiDONE (RisperDAL) 1 MG tablet, Take 1 mg by mouth in the morning and 1 mg before bedtime. 1/2in AM, 1/2 in PM., Disp: , Rfl: [...] mouth Daily as needed (Patient not taking: Reportedon 02/03/2025), Disp: , Rfl: traZODone (Desyrel) 50 [...] of left foot with fat layer exposed ([facility]) L97.522 XR foot 3+ views left 2. [...] the level of subcutaneous tissue to remove selectiveskin and nonviable tissue. Post debridement appearance of the wound: Increased granular appearance with decreased bioburden and fibrotic slough. Ulceration was flushed with copious amounts of saline.Wound was dressed with Amerigel dressing. Dressing should [...] are unable to find the surgical shoe athome I recommend returning to the office for fitting and dispensing of the surgical shoe with PEG assist offloading. Due to the traumatic nature described I recommend radiographs of the left foot. Three radiographs were obtained and I discussed my findings. No erosive changes to suggest osteomyelitis. I did see a chronic fracture of the 4th toe but nothing that suggested acute fracture. Discussedthe importance of offloading the wound at all [...] thickness with a nail Nipper and bur soap grinder without incident. Patienthas signed an ABN for this service today. [...] understanding. 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 ([facility]) 06/01/2022 Back pain CAD, multiple vessel 08/30/2023 Cardiomegaly Cataract Cataract, nuclear sclerotic senile, right 08/14/2018 Added automatically from request for surgery [id number] CHF (congestive heart failure) ([facility]) Chronic diastolic CHF (congestive heart failure) ([facility]) 02/05/2023 Complaint of paresthesia 11/16/2022 Constipation 10/15/2023 Coronary arteriosclerosis 06/01/2022 Coronary artery disease Status post CABG COVID-19 Dental disease crowns Depression Deviated septum Diabetes mellitus ([facility]) 08/30/2023 Diabetes mellitus type 2, controlled ([facility]) Difficult intravenous access OSEI (dyspnea on exertion) Esophageal reflux 08/30/2023 Esophageal stricture Fatigue 06/28/2011 Fractures Gallstone Gallstones 04/03/2024 GERD (gastroesophageal reflux disease) H/O esophagogastroduodenoscopy dilatation Heart attack ([facility]) 10/06/2023 4 stints Hiatal hernia Hyperlipidemia Hypertension Hyponatremia Incontinence of bowel Incontinence of urine 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 Lower extremity weakness 09/20/2023 MCI (mild cognitive impairment) 02/25/2021 Mild cognitive impairment Mixed anxiety and depressive disorder 09/07/2017 Mixed hyperlipidemia 06/28/2011 Last Assessment & Plan: Assessment: no meds currently ,stable Moderate episode of recurrent major depressive disorder ([facility]) 12/25/2022 Obesity Obesity (BMI 30-39.9) 08/30/2023 Obesity, [...] elevation myocardial infarction (STEMI) of inferior wall ([facility]) 10/15/2023 Type 2 diabetes mellitus with diabetic peripheral angiopathy without gangrene, with long-term current use of insulin ([facility]) 10/13/2019 Urinary retention Visual impairment glasses retinal detatchment Vitamin D deficiency Vitreous hemorrhage ([facility]) Vocal cord granuloma Past Surgical History: Procedure Laterality Date BACK SURGERY Left Circumferential 09/21/2023 fusion CATARACT EXTRACTION, BILATERAL Bilateral COLONOSCOPY 2012 CORONARY ARTERY BYPASS GRAFT ESOPHAGOGASTRODUODENOSCOPY dilatation EYE SURGERY Bilateral LAMINECTOMY LUMBAR SINGLE LEVEL / L4/5 N/A 09/21/2023 Performed by Bobbi Steen MD at [facility] POSTERIOR LAMINECTOMY FUSION LUMBAR SINGLE LEVEL / L4/5 N/A 09/21/2023 Performed by Bobbi Steen MD at [facility] REPLACEMENT TOTAL KNEE Bilateral ROTATOR CUFF [...] SL tablet, , Disp: , Rfl: omega 1-xdy-xwx-fish oil (Fish OiL) 300-1,000 mg capsule, Take by mouth., Disp: , Rfl: potassium chloride (KLOR-CON SPRINKLE) 10 MEQ CR capsule, Take 1 capsule (10 mEq total) by mouth asneeded. Per Dr. Watts, Disp: , Rfl: QUEtiapine (SEROquel) 100 mg tablet, Take 2 tablets (200 mg total) by mouth nightly. Increase 50 mguntil 100mg 7 days increase another 100mg until [...] mg total) by mouth Medrol Dose Pack schedulingONLY. (Patient not taking: Reported on 01/14/2025), Disp: [...] diminished LABS: Lab Results Component Value Date RSEUFDI0G 6.6 01/14/2025 GNIDGXD7J 7.5 (A) 10/17/2024 SOYZMTX8W 7.4 (A) 06/26/2024 CMP: Lab Results Component [...] ng/mL Final Comment: NOTE Test Performed By: [facility] [address] [place] [address] Gas Desulfurizer: Brandon Zapata III, M.D. [facility] #[id number]^ ASSESSMENT: Tom Khan has poorly controlled type 2 diabetes complicated by DM neuropathy and CAD PLAN: 1. Type 2 diabetes mellitus with diabetic peripheral angiopathy without gangrene, with long-term current use of insulin ([facility]) - POCT Hemoglobin A1c No medication changes. Patient was educated to make lifestyle changes including dietary restrictions, exercise and lifestyle modifications to attain significant weight loss Decrease sugar/carbohydrates in diet and increase physical activity Yearly dilated eye exam Will refer to hearing aide technician LDL and BP at goal. A1c elevation [...] months , 6 mo documented in this encounterOhio Valley Surgical Hospital05-08-2025 Miscellaneous Notes* Telephone Encounter - Soraya Jackson - 01/08/2025 10:29 AM EDT Received new patient referral. Please call patient to schedule a new patient appointment for Gait disturbance IS THIS DUE TO AN ACCIDENT? IS THIS WORKER'S COMP? PLEASE VERIFY IF THIS IS WORKERS COMP AND DOCUMENT (We do not accept any new workers comp cases) WHAT INSURANCE? HAVE YOU EVER BEEN SEEN BY A NEUROLOGIST BEFORE? * Telephone Encounter - Mallory Mckenzie - 01/08/2025 10:29 AM EDT 1st attempt- Voice mail full, not able to leave message Received Referral from LEEANN CASTILLO Dx: R26.9 (ICD-10-CM) - Gait disturbance Referred to: * Telephone Encounter - Lisa Ruiz - 01/08/2025 10:29 AM EDT Patient is scheduled for the following appointment: With Neurology (Jesse Desouza MD) 05/12/2025 at 10:30 AM New patient Gait disturbance [R26.9] Referirng provider: Leeann Castillo APRN-PROFESSOR OF SOCIOLOGY Requesting Dr. Desouza in [place]. *Insurance verified: E-AETNA MEDICARE/AETNA MEDICARE PLAN (PPO)* NOT A WORKER'S COMP CASE New patient paperwork mailed 01/13/25 - MMV. documented in this encounterOhio Valley Surgical Hospital05-08-2025 Telephone encounter Note* Telephone Encounter - Soraya Jackson - 01/08/2025 10:29 AM EDT Received new patient referral. Please call patient to schedule a new patient appointment for Gait disturbance IS THIS DUE TO AN ACCIDENT? IS THIS WORKER'S COMP? PLEASE VERIFY IF THIS IS WORKERS COMP AND DOCUMENT (We do not accept any new workers comp cases) WHAT INSURANCE? HAVE YOU EVER BEEN SEEN BY A NEUROLOGIST BEFORE? [facility] [employer] [id number] Telephone encounter Note* Telephone Encounter - Mallory Mckenzie - 01/08/2025 10:29 AM EDT 1st attempt- Voice mail full, not able to leave message Received Referral from LEEANN CASTILLO Dx: R26.9 (ICD-10-CM) - Gait disturbance Referred to: [facility] [employer] [id number] Telephone encounter Note* Telephone Encounter - Lisa Ruiz - 01/08/2025 10:29 AM EDT Patient is scheduled for the following appointment: With Neurology (Jesse Desouza MD) 05/12/2025 at 10:30 AM New patient Gait disturbance [R26.9] Referirng provider: TERRY Monteiro Requesting Dr. Desouza in [place]. *Insurance verified: E-AETNA MEDICARE/AETNA MEDICARE PLAN (PPO)* NOT A WORKER'S COMP CASE New patient paperwork mailed 01/13/25 - MMV. [facility] [employer] [id number] History of Present illness Narrative* TERRY Monteiro - 01/07/2025 3:40 PM EDT Subjective Patient ID: Tom Khan is a 69 y.o. male. Chief Complaint Chief Complaint Patient presents with Follow-up F/u from ER for a fall. Said he thinks maybe it was from a medication he is taking. Has been havingepisodes of anxiousness so they upped his rispirdone and that when he started becoming off balance.Lowered it and his balance is better. He is now currently taking one risperidone in the AM and one PM. HPI HPI ER f/u Has had imbalance, gait disturbance, falls. Seems better with reduction of risperidone dose. 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 ([facility]) 06/01/2022 Back pain CAD, multiple vessel 08/30/2023 Cardiomegaly Cataract Cataract, nuclear sclerotic senile, right 08/14/2018 Added automatically from request for surgery [id number] CHF (congestive heart failure) ([facility]) Chronic diastolic CHF (congestive heart failure) ([facility]) 02/05/2023 Complaint of paresthesia 11/16/2022 Constipation 10/15/2023 Coronary arteriosclerosis 06/01/2022 Coronary artery disease Status post CABG COVID-19 Dental disease crowns Depression Deviated septum Diabetes mellitus ([facility]) 08/30/2023 Diabetes mellitus type 2, controlled ([facility]) Difficult intravenous access OSEI (dyspnea on exertion) Esophageal reflux 08/30/2023 Esophageal stricture Fatigue 06/28/2011 Fractures Gallstone Gallstones 04/03/2024 GERD (gastroesophageal reflux disease) H/O esophagogastroduodenoscopy dilatation Heart attack ([facility]) 10/06/2023 4 stints Hiatal hernia Hyperlipidemia Hypertension Hyponatremia Incontinence of bowel Incontinence of urine 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 Lower extremity weakness 09/20/2023 MCI (mild cognitive impairment) 02/25/2021 Mild cognitive impairment Mixed anxiety and depressive disorder 09/07/2017 Mixed hyperlipidemia 06/28/2011 Last Assessment & Plan: Assessment: no meds currently ,stable Moderate episode of recurrent major depressive disorder ([facility]) 12/25/2022 Obesity Obesity (BMI 30-39.9) 08/30/2023 Obesity, [...] elevation myocardial infarction (STEMI) of inferior wall ([facility]) 10/15/2023 Type 2 diabetes mellitus with diabetic peripheral angiopathy without gangrene, with long-term current use of insulin ([facility]) 10/13/2019 Urinary retention Visual impairment glasses retinal detatchment Vitamin D deficiency Vitreous hemorrhage ([facility]) Vocal cord granuloma Past Surgical History Past Surgical History: Procedure Laterality Date BACK SURGERY Left Circumferential 09/21/2023 fusion CATARACT EXTRACTION, BILATERAL Bilateral COLONOSCOPY 2012 CORONARY ARTERY BYPASS GRAFT ESOPHAGOGASTRODUODENOSCOPY dilatation EYE SURGERY Bilateral LAMINECTOMY LUMBAR SINGLE LEVEL / L4/5 N/A 09/21/2023 Performed by oBbbi Steen MD at [facility] POSTERIOR LAMINECTOMY FUSION LUMBAR SINGLE LEVEL / L4/5 N/A 09/21/2023 Performed by Bobbi Steen MD at [facility] REPLACEMENT TOTAL KNEE Bilateral ROTATOR CUFF [...] 60 min Stress: Stress Concern Present (04/17/2023) [place] of Occupational Health - Occupational Stress Questionnaire [...] nitroglycerin (NITROSTAT) 0.4 MG SL tablet omega 5-vfh-yqu-fish oil (Fish OiL) 300-1,000 mg capsule Take by mouth. semaglutide (OZEMPIC) 2 mg/dose (8 mg/3 mL) pen injector Inject 2 mg under the skin every 7 days. 9mL 3 spironolactone (ALDACTONE) 25 mg tablet TOUJEO [...] mcg total) by mouth every 4 (four) hoursas needed for cramping. 30 tablet 0 potassium [...] and Radiology Assessment/Plan 1. Gait disturbance - [facility] - [place], [place]; Future Psychiatry follow up also Retrieve previous neurospsych testing Skyler Valles Return for Next scheduled follow up. There are no discontinued medications. There are no Patient Instructions on file for this visit. TERRY Monteiro 02/01/25 0849 documented in this encounterMcCullough-Hyde Memorial HospitalYottaa [id number] Miscellaneous Notes* Telephone Encounter - Cris Mayes - 12/15/2024 8:55 AM EDT called stating his phone went [employer] and he uses g7 on it. He now has a new phone and she was asking process of getting dexcom started again. I left her know the nohemy will need to be reinstalled on the the new phone and to just log in with his existing log in information. She verbalized understanding. documented in this encounterMcCullough-Hyde Memorial HospitalObserve Medical Beaumont [id number] Telephone encounter Note* Telephone Encounter - Cris Mayes - 12/15/2024 8:55 AM EDT called stating his phone went [employer] and he uses g7 on it. He now has a new phone and she was asking process of getting dexcom started again. I left her know the nohemy will need to be reinstalled on the the new phone and to just log in with his existing log in information. She verbalized understanding. [facility]04-[facility] Evaluation + Plan note* Assessment & Plan Note - HECTOR Hills - 12/10/2024 4:07 PM EDTAssociated Problem(s): Urinary retention He will stop at the lab today for a PSA. He would like a call with the results. Assuming this is stable, he would like to continue to follow with us on an annual basis. We will see him back in 1 yearwith a PSA and PVR [facility]04-09-2025 Miscellaneous Notes* Assessment & Plan Note - HECTOR Hills - 12/10/2024 4:07 PM EDTAssociated Problem(s): Urinary retention He will stop at the lab today for a PSA. He would like a call with the results. Assuming this is stable, he would like to continue to follow with us on an annual basis. We will see him back in 1 yearwith a PSA and PVR documented in this encounterOhio Valley Surgical Hospital04-09-2025 History of Present illness Narrative* HECTOR Hills - 12/10/2024 3:45 PM EDT Images from the original note were not included. [address] [place] [id number] Patient: Tom Khan Date of : 1955 Encounter Date: 12/10/2024 History of Present Illness: The patient is a 69 y.o. male, an established patient, and is here for follow- up. He has a history of urinary retention after back surgery and saw Dr. Blankenship 02/06/2024. He is no longer taking tamsulosin. He feels he voids well without the medication. He has no currenturologic concerns. Postvoid residual as measured by bladder [...] social history, past surgicalhistory and problem list. 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 ([facility]) 06/01/2022 Back pain CAD, multiple vessel 08/30/2023 Cardiomegaly Cataract Cataract, nuclear sclerotic senile, right 08/14/2018 Added automatically from request for surgery [id number] CHF (congestive heart failure) ([facility]) Chronic diastolic CHF (congestive heart failure) ([facility]) 02/05/2023 Complaint of paresthesia 11/16/2022 Constipation 10/15/2023 Coronary arteriosclerosis 06/01/2022 Coronary artery disease Status post CABG COVID-19 Dental disease crowns Depression Deviated septum Diabetes mellitus ([facility]) 08/30/2023 Diabetes mellitus type 2, controlled ([facility]) Difficult intravenous access OSEI (dyspnea on exertion) Esophageal reflux 08/30/2023 Esophageal stricture Fatigue 06/28/2011 Fractures Gallstone Gallstones 04/03/2024 GERD (gastroesophageal reflux disease) H/O esophagogastroduodenoscopy dilatation Heart attack ([facility]) 10/06/2023 4 stints Hiatal hernia Hyperlipidemia Hypertension Hyponatremia Incontinence of bowel Incontinence of urine 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 Lower extremity weakness 09/20/2023 MCI (mild cognitive impairment) 02/25/2021 Mild cognitive impairment Mixed anxiety and depressive disorder 09/07/2017 Mixed hyperlipidemia 06/28/2011 Last Assessment & Plan: Assessment: no meds currently ,stable Moderate episode of recurrent major depressive disorder ([facility]) 12/25/2022 Obesity Obesity (BMI 30-39.9) 08/30/2023 Obesity, [...] elevation myocardial infarction (STEMI) of inferior wall ([facility]) 10/15/2023 Type 2 diabetes mellitus with diabetic peripheral angiopathy without gangrene, with long-term current use of insulin ([facility]) 10/13/2019 Urinary retention Visual impairment glasses retinal detatchment Vitamin D deficiency Vitreous hemorrhage ([facility]) Vocal cord granuloma Past Surgical History: Procedure Laterality Date BACK SURGERY Left Circumferential 09/21/2023 fusion CATARACT EXTRACTION, BILATERAL Bilateral COLONOSCOPY 2012 CORONARY ARTERY BYPASS GRAFT ESOPHAGOGASTRODUODENOSCOPY dilatation EYE SURGERY Bilateral LAMINECTOMY LUMBAR SINGLE LEVEL / L4/5 N/A 09/21/2023 Performed by Bobbi Steen MD at [facility] POSTERIOR LAMINECTOMY FUSION LUMBAR SINGLE LEVEL / L4/5 N/A 09/21/2023 Performed by Bbobi Steen MD at [facility] REPLACEMENT TOTAL KNEE Bilateral ROTATOR CUFF [...] mcg total) by mouth every 4 (four) hoursas needed for cramping. 30 tablet 0 JARDIANCE [...] nitroglycerin (NITROSTAT) 0.4 MG SL tablet omega 8-gcd-fis-fish oil (Fish OiL) 300-1,000 mg capsule Take by mouth. potassium chloride (KLOR-CON SPRINKLE) 10 MEQ CR capsule Take 1 capsule (10 mEq total) by mouth in the morning. Per Dr. Watts . risperiDONE (RisperDAL) 1 mg tablet semaglutide (OZEMPIC) 2 mg/dose (8 mg/3 mL) pen injector Inject 2 mg under the skin every 7 days. 9mL 3 spironolactone (ALDACTONE) 25 mg tablet Daily [...] in 1 yearwith a PSA and PVR Relevant Orders Measure [...] you for your understanding. HECTOR Hills 12/10/24 1608 documented in this encounterChristopher Ville [id number] History of Present illness Narrative* Mc Rojo Venkat, DPM - 12/02/2024 2:30 PM EDT Images from the original note were not included. Subjective Patient ID: Tom Khan is a 69 y.o. male who presents for DM Foot Care (PCP: Dr. Mini RUIZ 11/19/24,A1C: 7.2, BS: 196, SS: 11.5). HPI This [...] History: Diagnosis Date CAD (coronary artery disease) ([facility]) Depression ([facility] Diabetes ([facility]) TypeII HTN (hypertension) ([facility]) Medications Current Outpatient Medications: aspirin 81 MG [...] 3 (three) times a day with meals., Disp:, Rfl: Jardiance 25 MG, Take 25 mg [...] utilizing a nail nipper and electric bur soap grinder without incident. I have discussed the importance [...] understanding. Mc Chatman DPM documented in this encounterBates County Memorial [id number] History of Present illness Narrative* HECTOR Villaseñor - 11/28/2024 10:15 AM EDT Images from the original note were [...] TOOTH ACHE - GOOD ROM- NOTES SOME PAINABOVE SHOULDER LEVEL- SOME WEAKNESS- PT IS WONDERING [...] and elected not to have surgery, opting forconservative measures and injections instead. He has an appointment with Dr. Farmer in mid-December 2024. His symptoms and activity modifications were discussed. He would like to use his shoulder as normal. The potential for a flareup of shoulder pain with aggressive activity, such as wood splitting,was discussed. He will try to do his [...] gratitude, noting that his left hip is alsodoing better. PROCEDURE The patient received a subacromial [...] for requiring urgent evaluation. documented in this encounterBates County Memorial [id number] History of Present illness Narrative* Leeann Castillo APRN-QI - 11/19/2024 11:20 AM EDT Subjective Patient ID: Tom Khan is a [...] History Past Medical History: Diagnosis Date Acute RI ([facility]) 10/15/2023 Angina pectoris ([facility]) Anxiety Arthritis osteoarthritis Autonomic neuropathy due to type 2 diabetes mellitus ([facility]) 06/01/2022 Back pain CAD, multiple vessel 08/30/2023 Cardiomegaly Cataract Cataract, nuclear sclerotic senile, right 08/14/2018 Added automatically from request for surgery [id number] CHF (congestive heart failure) ([facility]) Chronic diastolic CHF (congestive heart failure) ([facility]) 02/05/2023 Complaint of paresthesia 11/16/2022 Constipation 10/15/2023 Coronary arteriosclerosis 06/01/2022 Coronary artery disease Status post CABG COVID-19 Dental disease crowns Depression Deviated septum Diabetes mellitus ([facility]) 08/30/2023 Diabetes mellitus type 2, controlled ([facility]) Difficult intravenous access OSEI (dyspnea on exertion) Esophageal reflux 08/30/2023 Esophageal stricture Fatigue 06/28/2011 Fractures Gallstone Gallstones 04/03/2024 GERD (gastroesophageal reflux disease) H/O esophagogastroduodenoscopy dilatation Heart attack ([facility]) 10/06/2023 4 stints Hiatal hernia Hyperlipidemia Hypertension Hyponatremia Incontinence of bowel Incontinence of urine 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 Lower extremity weakness 09/20/2023 MCI (mild cognitive impairment) 02/25/2021 Mild cognitive impairment Mixed anxiety and depressive disorder 09/07/2017 Mixed hyperlipidemia 06/28/2011 Last Assessment & Plan: Assessment: no meds currently ,stable Moderate episode of recurrent major depressive disorder ([facility]) 12/25/2022 Obesity Obesity (BMI 30-39.9) 08/30/2023 Obesity, [...] elevation myocardial infarction (STEMI) of inferior wall ([facility]) 10/15/2023 Type 2 diabetes mellitus with diabetic peripheral angiopathy without gangrene, with long-term current use of insulin ([facility]) 10/13/2019 Urinary retention Visual impairment glasses retinal detatchment Vitamin D deficiency Vitreous hemorrhage ([facility]) Vocal cord granuloma Past Surgical History Past Surgical History: Procedure Laterality Date BACK SURGERY Left Circumferential 09/21/2023 fusion CATARACT EXTRACTION, BILATERAL Bilateral COLONOSCOPY 2012 CORONARY ARTERY BYPASS GRAFT ESOPHAGOGASTRODUODENOSCOPY dilatation EYE SURGERY Bilateral LAMINECTOMY LUMBAR SINGLE LEVEL / L4/5 N/A 09/21/2023 Performed by Bobbi Steen MD at [facility] POSTERIOR LAMINECTOMY FUSION LUMBAR SINGLE LEVEL / L4/5 N/A 09/21/2023 Performed by Bobbi Steen MD at [facility] REPLACEMENT TOTAL KNEE Bilateral ROTATOR CUFF [...] 60 min Stress: Stress Concern Present (04/17/2023) [employer] [place] [employer] - Occupational Stress Questionnaire [...] mcg total) by mouth every 4 (four) hoursas needed for cramping. 30 tablet 0 JARDIANCE [...] nitroglycerin (NITROSTAT) 0.4 MG SL tablet omega 6-ngc-cop-fish oil (Fish OiL) 300-1,000 mg capsule Take by mouth. potassium chloride (KLOR-CON SPRINKLE) 10 MEQ CR capsule Take 1 capsule (10 mEq total) by mouth in the morning. Per Dr. Watts . semaglutide (OZEMPIC) 2 mg/dose (8 mg/3 mL) pen injector Inject 2 mg under the skin every 7 days. 9mL 3 spironolactone (ALDACTONE) 25 mg tablet Daily [...] gangrene, with long-term current use of insulin ([facility]) 3. Chronic diastolic CHF (congestive heart failure) ([facility]) 4. CAD, multiple vessel Return in about 4 months (around 03/21/2025) for Recheck. There are no discontinued medications. There are no Patient Instructions on file for this visit. TERRY Monteiro 12/02/24 0755 documented in this encounterOhio Valley Surgical Hospital03-14-2025 Miscellaneous Notes* Telephone Encounter - Alethea Arteaga - 11/14/2024 9:44 AM EDT Patient's called and she is concerned with low blood sugars. It was 53 last night and she gavehim glucose tabs. Dexcom download is attached in media. Please advise. Toujeo 50 units HS Humalog scale before meals (80-100: 8u, 101-150= 16 u, 151-200= 18 u, 201-250= 20, 250-300= 22 u, over 300= 24 units) Jardiance 25 mg daily Ozempic 2 mg weekly * Telephone Encounter - TERRY Doe - 11/14/2024 9:44 AM EDT Decrease Toujeo to 48 units * Telephone Encounter - Cris Mayes - 11/14/2024 9:44 AM EDT informed. documented in this encounterOhio Valley Surgical Hospital03-14-2025 Telephone encounter Note* Telephone Encounter - Alethea Arteaga - 11/14/2024 9:44 AM EDT Patient's called and she is concerned with low blood sugars. It was 53 last night and she gavehim glucose tabs. Dexcom download is attached in media. Please advise. Toujeo 50 units HS Humalog scale before meals (80-100: 8u, 101-150= 16 u, 151-200= 18 u, 201-250= 20, 250-300= 22 u, over 300= 24 units) Jardiance 25 mg daily Ozempic 2 mg weekly [facility]03-14-2025 Telephone encounter Note* Telephone Encounter - TERRY Doe - 11/14/2024 9:44 AM EDT Decrease Toujeo to 48 units [facility]03-14-2025 Telephone encounter Note* Telephone Encounter - Cris Mayes - 11/14/2024 9:44 AM EDT informed. [facility]03-06-2025 History of Present illness Narrative* NADEGE Smith - 11/06/2024 10:30 AM EST OUTPATIENT NUTRITION CONSULTATION- ADULT Date: 11/06/24 Time [...] 10/17/24 119.3 kg (263 lb 1.6 oz) [place] Body Weight [place] body weight: 75.3 kg (166 lb 0.1 oz) Adjusted ideal body weight: 93.8 kg (206 lb 12.9 oz) Lab Results: POCT A1c Lab Results Component Value Date GXLLGGC2T 7.5 (A) 10/17/2024 A1c Lab Results Component Value Date HGBA1C 9.6 (H) 06/26/2022 HGBA1C 6.3 (H) 09/14/2015 C-Peptide C peptide Date/Time Value Ref Range Status 12/11/2023 02:40 PM 1.80 0.81 - 3.85 ng/mL Final Comment: NOTE Test Performed By: [facility] [address] [place] [address] Gas Desulfurizer: Brandon Zapata III, M.D. [facility] #[id number]^ Kidney Alb/creat ratio Date/Time Value Ref Range [...] carbohydrate counting, healthy food selections, weight reduction, sourcesof fat, and sources of fiber, label reading, [...] questions after session. Apolinar Mckenzie RD., LD. [facility] documented in this encounterOhio Valley Surgical Hospital02-28-2025 History of Present illness Narrative* HECTOR Villaseñor - 10/31/2024 10:15 AM ESTAssociated Order(s): M Inj/Asp: L acromioclavicular Post-Procedure Diagnose(s): Arthritis of left shoulder region; Arthritis of left acromioclavicular joint Images from the original note were not included. HISTORY OF PRESENT ILLNESS: EST PT Tom Khan is an 69 y.o. @ male. EST PT RECHECK RT KNEE- DOING MUCH S/P SHEILA HOSE - WEARS OCCASIONALLY XRAY RT KNEE EPIC 09/12/24 GIVEN PREDNISONE 09/12/24; ONLY WAS GOING TO TAKE IF NEEDED (PT DID NOT TAKE) HX RT TKA PER DR ADRIAN 04/12/20 PREDNISONE GIVEN 09/12/24 MINIMAL DISCOMFORT- PAIN ANTERIOR/MEDIAL KNEE- DENIES SWELLING- DENIES INSTABILITY- +STIFFNESS WITHPROLONG SITTING - +TYLENOL AZALIA: PT FELL ON [...] spironolactone (Aldactone) 25 MG tablet Oral, Daily Toujso Max SoloStar 66 Units, Subcutaneous, Daily RT [...] for requiring urgent evaluation. documented in this encounterBates County Memorial [id number] History of Present illness Narrative* Tim Ibrahim MD - 10/22/2024 3:00 PM EST Images from the original note were not included. [facility] New Patient Visit Chief Complaint Patient presents with Follow-up Abdominal Pain He reports left sided abdominal pain. He states he has a terrible amount of gas. He has a bowel movement every 2 days. He does feel like he empties. HISTORY OF PRESENT ILLNESS: Tom Khan is a 69 y.o. male who has a past medical history of Acute RI ([facility]) (10/15/2023), Angina pectoris ([facility]), Anxiety, Arthritis, Autonomic neuropathy due to type 2 diabetes mellitus ([facility]) (06/01/2022), Back pain, CAD, multiple vessel (08/30/2023), Cardiomegaly, Cataract, Cataract, nuclear sclerotic senile, right (08/14/2018), CHF (congestive heart failure) ([facility]), Chronic diastolic CHF (congestive heart failure) ([facility]) (02/05/2023), Complaint of paresthesia (11/16/2022), Constipation (10/15/2023), Coronary arteriosclerosis (06/01/2022), Coronary artery disease, COVID-19, Dental disease, Depression, Deviated septum, Diabetes mellitus ([facility]) (08/30/2023), Diabetes mellitus type 2, controlled ([facility]), Difficult intravenous access, OSEI (dyspnea on exertion), Esophageal reflux (08/30/2023), Esophageal stricture, Fatigue (06/28/2011), Fractures, Gallstone, Gallstones (04/03/2024), GERD (gastroesophageal reflux disease), H/O esophagogastroduodenoscopy, Heart attack ([facility]) (10/06/2023), Hiatal hernia, Hyperlipidemia, Hypertension, Hyponatremia, Incontinence of bowel, Incontinence of urine, 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, Lower extremityweakness (09/20/2023), MCI (mild cognitive impairment) (02/25/2021), Mild cognitive impairment, Mixed anxiety and depressive disorder (09/07/2017), Mixed hyperlipidemia (06/28/2011), Moderate episodeof recurrent major depressive disorder ([facility]) (12/25/2022), Obesity, Obesity (BMI 30-39.9) (08/30/2023), Obesity, [...] elevation myocardial infarction (STEMI) of inferior wall ([facility]) (10/15/2023), Type 2 diabetes mellitus with diabetic peripheral angiopathy withoutgangrene, with long-term current use of insulin ([facility]) (10/13/2019), Urinary retention, Visual impairment, Vitamin D deficiency, Vitreous hemorrhage ([facility]), and Vocal cord granuloma. Presentingfor follow-up visit. Patient reports abdominal pain and bowel movements have improved. Passing flatus multiple times a day. Bowel movements daily Ch[place]io 5 with complete emptying. No straining. Infrequent episodes of left abdominal pain. The following portions of the patient's history were reviewed and updated as appropriate: Patient Care Team: Leeann Castillo APRN-QI as PCP - General (Internal Medicine) Alea Mckenzie MD as Referring Physician (Endocrinology, Diabetes & Metabolism) Mely Call RN as Weather Teacher He has a past medical history of Acute RI ([facility]) (10/15/2023), Angina pectoris ([facility]), Anxiety, Arthritis, Autonomic neuropathy due to type 2 diabetes mellitus ([facility]) (06/01/2022), Back pain, CAD, multiple vessel (08/30/2023), Cardiomegaly, Cataract, Cataract, nuclear sclerotic senile, right (08/14/2018), CHF (congestive heart failure) ([facility]), Chronic diastolic CHF (congestive heart failure) ([facility]) (02/05/2023), Complaint of paresthesia (11/16/2022), Constipation (10/15/2023), Coronary arteriosclerosis (06/01/2022), Coronary artery disease, COVID-19, Dental disease, Depression,Deviated septum, Diabetes mellitus ([facility]) (08/30/2023), Diabetes mellitus type 2, controlled ([facility]), Difficult intravenous access, OSEI (dyspnea on exertion), Esophageal reflux (08/30/2023), Esophageal stricture, Fatigue (06/28/2011), Fractures, Gallstone, Gallstones (04/03/2024), GERD (gastroesophageal reflux disease), H/O esophagogastroduodenoscopy, Heart attack ([facility]) (10/06/2023), Hiatal hernia, Hyperlipidemia, Hypertension, Hyponatremia, Incontinence of bowel, Incontinence of urine, 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, Lower extremity weakness (09/20/2023), MCI (mild cognitive impairment) (02/25/2021), Mild cognitive impairment, Mixed anxiety and depressive disorder (09/07/2017), Mixed hyperlipidemia (06/28/2011), Moderate episode of recurrent major depressive d isorder ([facility]) (12/25/2022), Obesity, Obesity (BMI 30-39.9) (08/30/2023), Obesity, Class II, DFG72-70.9 (04/13/2020), Obsessive compulsive disorder, Obsessive-compulsive disorder (11/07/2018), Obstructive sleep apnea syndrome (06/01/2022), Peripheral neuropathy, Pneumonia, PONV (postoperative nausea and vomiting), Primary hypertension (06/28/2011), Primary osteoarthritis of right knee (06/01/2022), Pseudophakia (05/05/2011), Pulmonary vascular congestion, Retinal detachment (06/01/2022), S/P total knee arthroplasty, right (04/12/2020), Salmonella, Sleep apnea, Spinal stenosis at L4-L5 level (10/15/2023), ST elevation myocardial infarction (STEMI) of inferior wall ([facility]) (10/15/2023),Type 2 diabetes mellitus with diabetic peripheral angiopathy without gangrene, with long-term current use of insulin ([facility]) (10/13/2019), Urinary retention, Visual impairment, Vitamin D deficiency, Vitreous hemorrhage ([facility]), and Vocal cord granuloma. He has a [...] 09/21/2023 Performed by Bobbi Steen MD at [facility] POSTERIOR LAMINECTOMY FUSION LUMBAR SINGLE LEVEL / L4/5 N/A 09/21/2023 Performed by Bobbi Steen MD at [facility] REPLACEMENT TOTAL KNEE Bilateral ROTATOR CUFF [...] by mouth daily., Disp: 90 tablet, Rfl:1 JARDIANCE 25 mg tablet tablet, TAKE 1 [...] SL tablet, , Disp: , Rfl: omega 8-vlc-wtm-fish oil (Fish OiL) 300-1,000 mg capsule, Take [...] artery disease stenting - 4- placed in October2023, with inability at the moment to withhold [...] note is dictated with the use of [employer], a computer voice recognition software. Quite often unanticipated grammatical, syntax, homophones, and other interpretive errors are inadvertently transcribed by the computer software. Please disregard these errors and please excuse any errors that haveescaped final proofreading. Tim Ibrahim MD, MPH Gastroenterology & Hepatology Packaging Sales Consultant [facility] [address], [facility] [address] [place] [address] PH: [phone] documented in this encounterOhio Valley Surgical Hospital02-17-2025 Miscellaneous Notes* Telephone Encounter - Neema Garvey - 10/20/2024 7:13 AM EST We received a referral for education for Tom Khan 1955. However per [facility] Guidelines the services requested need to be ordered by an MD or DO. Please see pended order and have MD/DO sign if agreeable. Thank you [facility] documented in this encounterOhio Valley Surgical Hospital02-17-2025 Telephone encounter Note* Telephone Encounter - Neema Garvey - 10/20/2024 7:13 AM EST We received a referral for education for Tom Khan 1955. However per [facility] Guidelines the services requested need to be ordered by an MD or DO. Please see pended order and have MD/DO sign if agreeable. Thank you [facility]02-14-2025 History of Present illness Narrative* Shobha eDlong, TECHNOLOGY APPLICATIONS TEACHER-PROFESSOR OF SOCIOLOGY - 10/17/2024 10:45 AM EST Images from the original note were not included. REASON FOR VISIT: Tom Khan returns today for follow up of his diabetes. DIABETES HISTORY: Type of Diabetes: 2 Duration of Diabetes : since 2018 INTERVAL HISTORY: Hgb A1c is 7.5% today, [...] Hamm (had diabetic foot infection in 2023, nowhealed) History of amputations: no Autonomic neuropathy: yes [...] no Past Medical History: Diagnosis Date Acute RI ([facility]) 10/15/2023 Angina pectoris ([facility]) Anxiety Arthritis osteoarthritis Autonomic neuropathy due to type 2 diabetes mellitus ([facility]) 06/01/2022 Back pain CAD, multiple vessel 08/30/2023 Cardiomegaly Cataract Cataract, nuclear sclerotic senile, right 08/14/2018 Added automatically from request for surgery [id number] CHF (congestive heart failure) ([facility]) Chronic diastolic CHF (congestive heart failure) ([facility]) 02/05/2023 Complaint of paresthesia 11/16/2022 Constipation 10/15/2023 Coronary arteriosclerosis 06/01/2022 Coronary artery disease Status post CABG COVID-19 Dental disease crowns Depression Deviated septum Diabetes mellitus ([facility]) 08/30/2023 Diabetes mellitus type 2, controlled ([facility]) Difficult intravenous access OSEI (dyspnea on exertion) Esophageal reflux 08/30/2023 Esophageal stricture Fatigue 06/28/2011 Fractures Gallstone Gallstones 04/03/2024 GERD (gastroesophageal reflux disease) H/O esophagogastroduodenoscopy dilatation Heart attack ([facility]) 10/06/2023 4 stints Hiatal hernia Hyperlipidemia Hypertension Hyponatremia Incontinence of bowel Incontinence of urine 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 Lower extremity weakness 09/20/2023 MCI (mild cognitive impairment) 02/25/2021 Mild cognitive impairment Mixed anxiety and depressive disorder 09/07/2017 Mixed hyperlipidemia 06/28/2011 Last Assessment & Plan: Assessment: no meds currently ,stable Moderate episode of recurrent major depressive disorder ([facility]) 12/25/2022 Obesity Obesity (BMI 30-39.9) 08/30/2023 Obesity, [...] elevation myocardial infarction (STEMI) of inferior wall ([facility]) 10/15/2023 Type 2 diabetes mellitus with diabetic peripheral angiopathy without gangrene, with long-term current use of insulin ([facility]) 10/13/2019 Urinary retention Visual impairment glasses retinal detatchment Vitamin D deficiency Vitreous hemorrhage ([facility]) Vocal cord granuloma Past Surgical History: Procedure Laterality Date BACK SURGERY Left Circumferential 09/21/2023 fusion CATARACT EXTRACTION, BILATERAL Bilateral COLONOSCOPY 2012 CORONARY ARTERY BYPASS GRAFT ESOPHAGOGASTRODUODENOSCOPY dilatation EYE SURGERY Bilateral LAMINECTOMY LUMBAR SINGLE LEVEL / L4/5 N/A 09/21/2023 Performed by Bobbi Steen MD at [facility] POSTERIOR LAMINECTOMY FUSION LUMBAR SINGLE LEVEL / L4/5 N/A 09/21/2023 Performed by Bobbi Steen MD at [facility] REPLACEMENT TOTAL KNEE Bilateral ROTATOR CUFF [...] by mouth daily., Disp: 90 tablet, Rfl:1 JARDIANCE 25 mg tablet tablet, TAKE 1 [...] daily at bedtime., Disp: , Rfl: omega 1-cgs-xtn-fish oil (Fish OiL) 300-1,000 mg capsule, Take [...] every 7 days.,Disp: 9 mL, Rfl: 3 TOUJEO MAX U-300 [...] diminished LABS: Lab Results Component Value Date BMRLCGA1T 7.5 (A) 10/17/2024 [id number] 7.4 (A) 06/26/2024 [id number] 7.7 (A) 12/14/2023 CMP: Lab Results Component [...] ng/mL Final Comment: NOTE Test Performed By: [facility] [address] [place] [address] Gas Desulfurizer: Brandon Zapata III, M.D. [facility] #[id number]^ ASSESSMENT: Tom Khan has poorly controlled type 2 diabetes complicated by DM neuropathy and CAD PLAN: 1. Type 2 diabetes mellitus with diabetic peripheral angiopathy without gangrene, with long-term current use of insulin ([facility]) - POCT Hemoglobin A1c - ADMELOG SOLOSTAR [...] - Albumin: Creatinine Urine Ratio; Future - [facility] Diabetes [facility] Nutrition Education- [facility]; Future 2. Mixed hyperlipidemia Increase Toujeo to 52 units. Change Humalog to Admelog, continue the same scale. Decrease sugar/carbohydrates in diet and increase physical activity Yearly dilated eye exam Will refer to hearing aide technician LDL and BP at goal. A1c elevation [...] TERRY Doe 10/17/24 1140 documented in this [facility]02-14-2025 Instructions* Patient Instructions* TERRY Doe - 10/17/2024 10:45 AM EST Increase Toujeo to 52 units daily Admelog scale before meals 80-100: 8 units 101-150= 16 units 151-200= 18 units 201-250= 20 units 250-300= 22 units over 300= 24 units documented in this [facility]01-27-2025 History of Present illness Narrative* Leeann Castillo APRN-PROFESSOR OF SOCIOLOGY - 09/29/2024 11:40 AM EST Subjective Patient ID: Tom Khan is a 69 y.o. male. Chief Complaint Chief Complaint Patient presents with Follow-up Edema in feet and legs, still achy in joints, neck stiffness HPI HPI Here with Spent some time at [facility]. Psych meds re-adjusted. Mood doing much better. [...] History Past Medical History: Diagnosis Date Acute RI ([facility]) 10/15/2023 Angina pectoris ([facility]) Anxiety Arthritis osteoarthritis Autonomic neuropathy due to type 2 diabetes mellitus ([facility]) 06/01/2022 Back pain CAD, multiple vessel 08/30/2023 Cardiomegaly Cataract Cataract, nuclear sclerotic senile, right 08/14/2018 Added automatically from request for surgery [id number] CHF (congestive heart failure) ([facility]) Chronic diastolic CHF (congestive heart failure) ([facility]) 02/05/2023 Complaint of paresthesia 11/16/2022 Constipation 10/15/2023 Coronary arteriosclerosis 06/01/2022 Coronary artery disease Status post CABG COVID-19 Dental disease crowns Depression Deviated septum Diabetes mellitus ([facility]) 08/30/2023 Diabetes mellitus type 2, controlled ([facility]) Difficult intravenous access OSEI (dyspnea on exertion) Esophageal reflux 08/30/2023 Esophageal stricture Fatigue 06/28/2011 Fractures Gallstone Gallstones 04/03/2024 GERD (gastroesophageal reflux disease) H/O esophagogastroduodenoscopy dilatation Heart attack ([facility]) 10/06/2023 4 stints Hiatal hernia Hyperlipidemia Hypertension Hyponatremia Incontinence of bowel Incontinence of urine 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 Lower extremity weakness 09/20/2023 MCI (mild cognitive impairment) 02/25/2021 Mild cognitive impairment Mixed anxiety and depressive disorder 09/07/2017 Mixed hyperlipidemia 06/28/2011 Last Assessment & Plan: Assessment: no meds currently ,stable Moderate episode of recurrent major depressive disorder ([facility]) 12/25/2022 Obesity Obesity (BMI 30-39.9) 08/30/2023 Obesity, [...] elevation myocardial infarction (STEMI) of inferior wall ([facility]) 10/15/2023 Type 2 diabetes mellitus with diabetic peripheral angiopathy without gangrene, with long-term current use of insulin ([facility]) 10/13/2019 Urinary retention Visual impairment glasses retinal detatchment Vitamin D deficiency Vitreous hemorrhage ([facility]) Vocal cord granuloma Past Surgical History Past Surgical History: Procedure Laterality Date BACK SURGERY Left Circumferential 09/21/2023 fusion CATARACT EXTRACTION, BILATERAL Bilateral COLONOSCOPY 2012 CORONARY ARTERY BYPASS GRAFT ESOPHAGOGASTRODUODENOSCOPY dilatation EYE SURGERY Bilateral LAMINECTOMY LUMBAR SINGLE LEVEL / L4/5 N/A 09/21/2023 Performed by Bobbi Steen MD at [facility] POSTERIOR LAMINECTOMY FUSION LUMBAR SINGLE LEVEL / L4/5 N/A 09/21/2023 Performed by Bobbi Steen MD at [facility] REPLACEMENT TOTAL KNEE Bilateral ROTATOR CUFF [...] 60 min Stress: Stress Concern Present (04/17/2023) [employer] [place] [employer] - Occupational Stress Questionnaire [...] units; BG 301-350 = 4 units; BG 351- 400 = 5 units. Notify prescriber if BG [...] by mouth once daily at bedtime. omega 7-dku-mab-fish oil (Fish OiL) 300-1,000 mg capsule Take by mouth. risperiDONE (RisperDAL) 1 mg tablet TAKE 1 TABLET BY MOUTH TWICE A DAY FOR PYSCHOSIS semaglutide (OZEMPIC) 2 mg/dose (8 mg/3 mL) pen injector Inject 2 mg under the skin every 7 days. 9mL 3 spironolactone (ALDACTONE) 25 mg tablet Daily traZODone (DESYREL) 100 mg tablet Take 1 tablet (100 mg total) by mouth nightly as needed. acetaminophen (TYLENOL EXTRA STRENGTH) 500 mg tablet Every 8 hours (Patient not taking: Reported on09/29/2024) atorvastatin (LIPITOR) 40 mg tablet Take 1 [...] 3. Chronic diastolic CHF (congestive heart failure) ([facility]) Increase lasix to 20 mg daily BMP [...] TERRY Monteiro 09/30/24 0605 documented in this encounterSpringfield HospitalPower Surge Electric [id number] History of Present illness Narrative* HECTOR Villaseñor - 09/26/2024 10:00 AM EST Images from the original note were not included. HISTORY OF PRESENT ILLNESS: EST PT Tom Khan is an 69 y.o. @ male. EST PT RECHECK RT KNEE- GIVEN PREDNISONE 09/12/24; ONLY WAS GOING TO TAKE IF NEEDED (PT DID NOT TAKE) - S/P SHEILA HOSE - WEARS OCCASIONALLY XRAY RT KNEE EPIC 09/12/24 HX RT TKA PER DR ADRIAN 04/12/20 PREDNISONE GIVEN 09/12/24 NOTES IMPROVEMENT- C/O STIFFNESS- +SWELLING- USES ORGANIC CASTOR OIL; GOOD RELIEF - SOME TENDERNESSTO TOUCH- PT ICES/ELEVATES OCCASIONALLY - +TYLENOL AZALIA: [...] with initiation- finding balance.. pt has history ofdiabetic neuropathy and prior back surgery.. he denies [...] with initiation- finding balance.. pt has history ofdiabetic neuropathy and prior back surgery.. he denies [...] Referral Reason: Consult and Treat Referral Location: [facility] Requested Specialty: Physical Therapy Number of [...] from a previous prescription that he has notyet used but would like to try [id number] Tylenol Arthritis Strength 500 mg, 2 tablets [...] for requiring urgent evaluation. documented in this encounterBates County Memorial [id number] History of Present illness Narrative* HECTOR Villaseñor - 09/12/2024 9:00 AM EST Images from the original note were not included. HISTORY OF PRESENT ILLNESS: EST PT Tom Khan is an 68 y.o. @ male. EST PT WITH NEW C/O RT KNEE- PT FELL ON KNEE AT HOME; TRIPPED OVER A SHEET ~1MO AGO- PT STATES HE TRIED TO GET AN APPT WITH DR ADRIAN BUT WE WERE ABLE TO SEE HIM SOONER XRAY RT KNEE TODAY EPIC 09/12/[address]X [address] TKA PER DR ADRIAN 04/12/20 C/O STIFFNESS- PAIN MEDIAL/ANTERIOR KNEE- TENDER [...] mouth Daily for 5 days, THEN 1 tablet(20 mg) Daily for 5 days. Take with [...] procedure. It is recommended that he wear SHEILA hose on both legs, even if assistance isrequired for application. A prescription for prednisone was [...] in the past. Additionally, he has had veinstripping for a cardiac procedure. Questions answered in laymen terms at the bedside. The diagnosis, home exercise plan and any ongoing restrictions/ recommendations reviewed. If unable to be reached in office, I recommend evaluation at nearest Emergency Room if any symptoms worsened or new symptoms develop for requiring urgent evaluation. documented in this encounterBates County Memorial [id number] History of Present illness Narrative* Mc Chatman DPM - 09/01/2024 2:15 PM EST Images from the original note were not included. Subjective Patient ID: Tom Khan is a 68 y.o. male who presents for DM Foot Care ( Tom Khan is a 68 y.o. male. Established pt presents for diabetic nail care, patient relates 08/26/2024 he was at [facility] ER for swelling, cellulitis. Ultra sound was negative for Blood clots. PCP: Dr. Mini RUIZ 03/14/24, A1C: 7.0, BS: 200, SS: 11.5). [...] History: Diagnosis Date CAD (coronary artery disease) ([facility]) Depression ([facility]) Diabetes ([facility]) TypeII HTN (hypertension) ([facility]) Medications Current Outpatient Medications: Jardiance 25 MG, [...] 3 (three) times a day with meals., Disp:, Rfl: labetalol (Normodyne) 200 MG tablet, Take [...] utilizing a nail nipper and electric bur soap grinder without incident. A sterile #15 blade was [...] Patient was not aware that he had thecream and I recommend that he pick it [...] understanding. Mc Chatman DPM documented in this encounterBates County Memorial [id number] Hospital Discharge instructions* Discharge Instructions* Pritesh Giles MD - 08/26/2024 2:42 PM EST Follow up with the listed physician or medical clinic within 24-72 hours. Return to the Emergency Department if you develop any new or concerning symptoms or if your are getting worse * Attachments The following attachments cannot be sent through Care Everywhere. * Venous Insufficiency: General Info (Thai) documented in this encounterWellmont Health System12-09-2024 History of Present illness Narrative* Tim Ibrahim MD - 08/11/2024 10:30 AM EST Images from the original note were not included. [facility] New Patient Visit Chief Complaint Patient presents with New Patient Abdominal Pain He reports upper abdominal pain and on both sides. reports constipation with occasional miralax HISTORY OF PRESENT ILLNESS: Tom Khan is a 68 y.o. male who has a past medical history of Acute RI ([facility]) (10/15/2023), Angina pectoris ([facility]), Anxiety, Arthritis, Autonomic neuropathy due to type 2 diabetes mellitus ([facility]) (06/01/2022), Back pain, CAD, multiple vessel (08/30/2023), Cardiomegaly, Cataract, Cataract, nuclear sclerotic senile, right (08/14/2018), CHF (congestive heart failure) ([facility]), Chronic diastolic CHF (congestive heart failure) ([facility]) (02/05/2023), Complaint of paresthesia (11/16/2022), Constipation (10/15/2023), Coronary arteriosclerosis (06/01/2022), Coronary artery disease, COVID-19, Dental disease, Depression, Deviated septum, Diabetes mellitus ([facility]) (08/30/2023), Diabetes mellitus type 2, controlled ([facility]), Difficult intravenous access, OSEI (dyspnea on exertion), Esophageal reflux (08/30/2023), Esophageal stricture, Fatigue (06/28/2011), Fractures, Gallstone, Gallstones (04/03/2024), GERD (gastroesophageal reflux disease), H/O esophagogastroduodenoscopy, Heart attack ([facility]) (10/06/2023), Hiatal hernia, Hyperlipidemia, Hypertension, Hyponatremia, Incontinence of bowel, Incontinence of urine, 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, Lower extremityweakness (09/20/2023), MCI (mild cognitive impairment) (02/25/2021), Mild cognitive impairment, Mixed anxiety and depressive disorder (09/07/2017), Mixed hyperlipidemia (06/28/2011), Moderate episodeof recurrent major depressive disorder ([facility]) (12/25/2022), Obesity, Obesity (BMI 30-39.9) (08/30/2023), Obesity, [...] elevation myocardial infarction (STEMI) of inferior wall ([facility]) (10/15/2023), Type 2 diabetes mellitus with diabetic peripheral angiopathy withoutgangrene, with long-term current use of insulin ([facility]) (10/13/2019), Urinary retention, Visual impairment, Vitamin D deficiency, Vitreous hemorrhage ([facility]), and Vocal cord granuloma. referred for further [...] abdominal pain. He has a bowel movement [place] 2-4 with straining. No melena no hematochezia. 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 He has a past medical history of Acute RI ([facility]) (10/15/2023), Angina pectoris ([facility]), Anxiety, Arthritis, Autonomic neuropathy due to type 2 diabetes mellitus ([facility]) (06/01/2022), Back pain, CAD, multiple vessel (08/30/2023), Cardiomegaly, Cataract, Cataract, nuclear sclerotic senile, right (08/14/2018), CHF (congestive heart failure) ([facility]), Chronic diastolic CHF (congestive heart failure) ([facility]) (02/05/2023), Complaint of paresthesia (11/16/2022), Constipation (10/15/2023), Coronary arteriosclerosis (06/01/2022), Coronary artery disease, COVID-19, Dental disease, Depression,Deviated septum, Diabetes mellitus ([facility]) (08/30/2023), Diabetes mellitus type 2, controlled ([facility]), Difficult intravenous access, OSEI (dyspnea on exertion), Esophageal reflux (08/30/2023), Esophageal stricture, Fatigue (06/28/2011), Fractures, Gallstone, Gallstones (04/03/2024), GERD (gastroesophageal reflux disease), H/O esophagogastroduodenoscopy, Heart attack ([facility]) (10/06/2023), Hiatal hernia, Hyperlipidemia, Hypertension, Hyponatremia, Incontinence of bowel, Incontinence of urine, 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, Lower extremity weakness (09/20/2023), MCI (mild cognitive impairment) (02/25/2021), Mild cognitive impairment, Mixed anxiety and depressive disorder (09/07/2017), Mixed hyperlipidemia (06/28/2011), Moderate episode of recurrent major depressive d isorder ([facility]) (12/25/2022), Obesity, Obesity (BMI 30-39.9) (08/30/2023), Obesity, Class II, HSG77-77.9 (04/13/2020), Obsessive compulsive disorder, Obsessive-compulsive disorder (11/07/2018), Obstructive sleep apnea syndrome (06/01/2022), Peripheral neuropathy, Pneumonia, PONV (postoperative nausea and vomiting), Primary hypertension (06/28/2011), Primary osteoarthritis of right knee (06/01/2022), Pseudophakia (05/05/2011), Pulmonary vascular congestion, Retinal detachment (06/01/2022), S/P total knee arthroplasty, right (04/12/2020), Salmonella, Sleep apnea, Spinal stenosis at L4-L5 level (10/15/2023), ST elevation myocardial infarction (STEMI) of inferior wall ([facility]) (10/15/2023),Type 2 diabetes mellitus with diabetic peripheral angiopathy without gangrene, with long-term current use of insulin ([facility]) (10/13/2019), Urinary retention, Visual impairment, Vitamin D deficiency, Vitreous hemorrhage ([facility]), and Vocal cord granuloma. He has a [...] 09/21/2023 Performed by Bobbi Steen MD at [facility] POSTERIOR LAMINECTOMY FUSION LUMBAR SINGLE LEVEL / L4/5 N/A 09/21/2023 Performed by Bobbi Steen MD at [facility] REPLACEMENT TOTAL KNEE Bilateral ROTATOR CUFF REPAIR SEPTOPLASTY Current Medications: Current Outpatient Medications: aspirin 81 mg, Daily, Disp: , Rfl: atorvastatin (LIPITOR) 80 mg tablet, Take 0.5 tablets (40 mg total) by mouth in the morning., Disp:, Rfl: busPIRone (BUSPAR) 10 mg tablet, Take [...] meals and nightly. For blood glucose (BG) 151- 200= 1 unit; BG 201-250 = 2 units; BG 251-300= 3 units; BG 301-350 = 4 units; [...] daily at bedtime., Disp: , Rfl: omega 6-owq-gyn-fish oil (Fish OiL) 300-1,000 mg capsule, Take [...] morning and 0.5mg at bedtime (Patient not taking:Reported on 08/11/2024), Disp: 15 tablet, Rfl: 0 [...] artery disease stenting - 4- placed in October2023, with inability at the moment to withhold [...] note is dictated with the use of [employer], a computer voice recognition software. Quite often unanticipated grammatical, syntax, homophones, and other interpretive errors are inadvertently transcribed by the computer software. Please disregard these errors and please excuse any errors that haveescaped final proofreading. Tim Ibrahim MD, MPH Gastroenterology & Hepatology Packaging Sales Consultant [facility] [address], [facility] [address] [place] [address] PH: [phone] documented in this encounterOhio Valley Surgical Hospital12-09-2024 Instructions* Patient Instructions* Tim Ibrahim MD - 08/11/2024 10:30 AM EST Recommend lifestyle measures including?keeping active,?sleep hygiene,?hydration throughout the day,?using the stepstool, and?incorporating fiber in her diet (target >25g per day) including eating 3-4 Kiwi with skin on or Dragonfruit daily.Black coffee intake. Managing stress levels. Active lifestyle Hydrate yourself daily documented in this encounterOhio Valley Surgical Hospital11-13-2024 History of Present illness Narrative* Gita Watts, DO - 07/16/2024 11:20 AM EST Subjective Tom Khan is a 68 y.o. male Chief Complaint Follow-up 68-year-old gentleman returns for 6 months following non-ST elevation RI in October with primary revascularization of the [...] by mouth 2 times daily (morning and lateafternoon)., Disp: , Rfl: clopidogrel (Plavix) 75 mg [...] as directed per insulin instructions. Per sliding scale,Disp: , Rfl: LORazepam (Ativan) 1 mg tablet, [...] total., Disp: 100 tablet, Rfl: 11 omega 9-abt-afx-fish oil (Fish OiL) 1,000 mg (120 mg-180 mg) capsule, Take 1 capsule (1,000 mg) by mouth once daily., Disp: , Rfl: semaglutide (Ozempic) 2 mg/dose (8 mg/3 mL) pen injector, Inject 2 mg under the skin every 7 days.,Disp: , Rfl: spironolactone (Aldactone) 25 mg tablet, Take 1 tablet (25 mg) by mouth once daily., Disp: 30 tablet, Rfl: 11 Gian Max U-300 SoloStar 300 unit/mL (3 mL) [...] Scribe Attestation By signing my name below, INataly LPN, Scribe attest that this documentation has [...] exam, discussion and plan. documented in this [facility] Work Phone: [phone]) 345-185411-13-2024 Instructions* Patient Instructions* Nataly Urias LPN - 07/16/2024 11:20 AM [...] Provided instructions on exercise. documented in this encounterWay[facility] Work Phone: [phone]) 674-463010-31-2024 Miscellaneous Notes* Telephone Encounter - Elsie Seals - 07/03/2024 10:05 AM EDT Tried to call pt to schedule referral for abd pain, rang 3 times then call was disconnected. Will try again at a later date. documented in this encounterMcCullough-Hyde Memorial HospitalObserve Medical Beaumont [id number] Telephone encounter Note* Telephone Encounter - Elsie Seals - 07/03/2024 10:05 AM EDT Tried to call pt to schedule referral for abd pain, rang 3 times then call was disconnected. Will try again at a later date. [employer]10-24-2024 History of Present illness Narrative* Alea cMkenzie MD - 06/26/2024 11:15 AM EDT REASON FOR VISIT: Tom Khan returns today [...] Hamm (had diabetic foot infection in 2023, nowhealed) History of amputations: no Autonomic neuropathy: yes [...] Past Medical History: Diagnosis Date Angina pectoris ([facility]) Anxiety Arthritis osteoarthritis Back pain Cardiomegaly Cataract CHF (congestive heart failure) ([facility]) Coronary artery disease Status post CABG COVID-19 Dental disease crowns Depression Deviated septum Diabetes mellitus type 2, controlled ([facility]) Difficult intravenous access OSEI (dyspnea on exertion) Esophageal stricture Fractures Gallstone GERD (gastroesophageal reflux disease) H/O esophagogastroduodenoscopy dilatation Heart attack ([facility]) 10/06/2023 4 stints Hiatal hernia Hyperlipidemia Hypertension Hyponatremia Incontinence of bowel Incontinence of urine 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 Mild cognitive impairment Obesity Obsessive compulsive disorder Peripheral neuropathy Pneumonia PONV (postoperative nausea and vomiting) Pulmonary vascular congestion Salmonella Sleep apnea cpap Urinary retention Visual impairment glasses retinal detatchment Vitamin D deficiency Vitreous hemorrhage ([facility]) Vocal cord granuloma Past Surgical History: Procedure Laterality Date BACK SURGERY Left Circumferential 09/21/2023 fusion CATARACT EXTRACTION, BILATERAL Bilateral COLONOSCOPY 2012 CORONARY ARTERY BYPASS GRAFT ESOPHAGOGASTRODUODENOSCOPY dilatation EYE SURGERY Bilateral LAMINECTOMY LUMBAR SINGLE LEVEL / L4/5 N/A 09/21/2023 Performed by Bobbi Steen MD at [facility] POSTERIOR LAMINECTOMY FUSION LUMBAR SINGLE LEVEL / L4/5 N/A 09/21/2023 Performed by Bobbi Steen MD at [facility] REPLACEMENT TOTAL KNEE Bilateral ROTATOR CUFF REPAIR SEPTOPLASTY Current Outpatient Medications: acetaminophen (TYLENOL EXTRA STRENGTH) 500 mg tablet, Every 8 hours, Disp: , Rfl: aspirin 81 mg, Daily, Disp: , Rfl: atorvastatin (LIPITOR) 80 mg tablet, Take 0.5 tablets (40 mg total) by mouth in the morning., Disp:, Rfl: carvediloL (COREG) 12.5 mg tablet, Take [...] meals and nightly. For blood glucose (BG) 151- 200= 1 unit; BG 201-250 = 2 units; BG 251-300= 3 units; BG 301-350 = 4 units; [...] SL tablet, Q5M, Disp: , Rfl: omega 8-qla-iyh-fish oil (Fish OiL) 300-1,000 mg capsule, Take [...] gangrene, with long-term current use of insulin ([facility]) - POCT Hemoglobin A1c Continue current dose [...] injury. Return to clinic: 3 months with SENIOR OFFICE SUPPORT ASSISTANT SOSA, and 6 months with me documented in this encounterOhio Valley Surgical Hospital10-08-2024 History of Present illness Narrative* Leeann Castillo APRN-PROFESSOR OF SOCIOLOGY - 06/10/2024 11:20 AM EDT Subjective Patient ID: Tom Khan is a [...] Past Medical History: Diagnosis Date Angina pectoris ([facility]) Anxiety Arthritis osteoarthritis Back pain Cardiomegaly Cataract CHF (congestive heart failure) ([facility]) Coronary artery disease Status post CABG COVID-19 Dental disease crowns Depression Deviated septum Diabetes mellitus type 2, controlled ([facility]) Difficult intravenous access OSEI (dyspnea on exertion) Esophageal stricture Fractures Gallstone GERD (gastroesophageal reflux disease) H/O esophagogastroduodenoscopy dilatation Heart attack ([facility]) 10/06/2023 4 stints Hiatal hernia Hyperlipidemia Hypertension Hyponatremia Incontinence of bowel Incontinence of urine 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 Mild cognitive impairment Obesity Obsessive compulsive disorder Peripheral neuropathy Pneumonia PONV (postoperative nausea and vomiting) Pulmonary vascular congestion Salmonella Sleep apnea cpap Urinary retention Visual impairment glasses retinal detatchment Vitamin D deficiency Vitreous hemorrhage ([facility]) Vocal cord granuloma Past Surgical History Past Surgical History: Procedure Laterality Date BACK SURGERY Left Circumferential 09/21/2023 fusion CATARACT EXTRACTION, BILATERAL Bilateral COLONOSCOPY 2012 CORONARY ARTERY BYPASS GRAFT ESOPHAGOGASTRODUODENOSCOPY dilatation EYE SURGERY Bilateral LAMINECTOMY LUMBAR SINGLE LEVEL / L4/5 N/A 09/21/2023 Performed by Bobbi Steen MD at [facility] POSTERIOR LAMINECTOMY FUSION LUMBAR SINGLE LEVEL / L4/5 N/A 09/21/2023 Performed by Bobbi Steen MD at [facility] REPLACEMENT TOTAL KNEE Bilateral ROTATOR CUFF [...] 60 min Stress: Stress Concern Present (04/17/2023) [employer] [place] [employer] - Occupational Stress Questionnaire [...] units; BG 301-350 = 4 units; BG 351- 400 = 5 units. Notify prescriber if BG [...] (NITROSTAT) 0.4 MG SL tablet Q5M omega 8-cmo-unq-fish oil (Fish OiL) 300-1,000 mg capsule Take by mouth. polyethylene glycol (GLYCOLAX) 17 gram packet Take 17 g by mouth in the morning. (Patient taking differently: Take 17 g by mouth as needed.) semaglutide (OZEMPIC) 0.25 mg or 0.5 mg (2 mg/3 mL) pen injector Inject 0.5 mg under the skin every7 days. 0.5 mg subQ weekly for 4 weeks then increase to 1 mg weekly for 4 weeks, then increase to 2mg weekly. 3 mL 0 semaglutide (OZEMPIC) 2 mg/dose (8 mg/3 mL) pen injector Inject 2 mg under the skin every 7 days. 9mL 3 spironolactone (ALDACTONE) 25 mg tablet Daily [...] neck and low back pain Referred to [facility] ER for eval There are no discontinued medications. There are no Patient Instructions on file for this visit. Leeann Castillo APRN-PROFESSOR OF SOCIOLOGY 06/10/24 1240 documented in this encounterMcCullough-Hyde Memorial HospitalObserve Medical Beaumont [id number] Miscellaneous Notes* Telephone Encounter - Pattie Pamela - 06/05/2024 1:08 PM EDT I called the patient's spouse to see if I should reschedule him for his surgery. She states that Dr. Watts from [facility] informed her that he cannot have surgery due to Cardiology issues for at lease a year or more. documented in this encounterMcCullough-Hyde Memorial HospitalObserve Medical Beaumont [id number] Telephone encounter Note* Telephone Encounter - Pattienarcisa Santiago - 06/05/2024 1:08 PM EDT I called the patient's spouse to see if I should reschedule him for his surgery. She states that Dr. Watts from [facility] informed her that he cannot have surgery due to Cardiology issues for at lease a year or more. [facility] [id number] History of Present illness Narrative* Mc Chatman DPM - 06/02/2024 2:15 PM EDT Images from the original note [...] History: Diagnosis Date CAD (coronary artery disease) ([facility]) Depression ([facility]) Diabetes ([facility]) TypeII HTN (hypertension) ([facility]) Medications Current Outpatient Medications: atorvastatin (Lipitor) 80 [...] 3 (three) times a day with meals., Disp:, Rfl: labetalol (Normodyne) 200 MG tablet, Take [...] MG tablet, Twice daily, Disp: , Rfl: Gian Cespedes SoloStar 300 UNIT/ML injection, Inject 66 Units [...] utilizing a nail nipper and electric bur soap grinder without incident. A sterile #15 blade was [...] understanding. Mc Chatman DPM documented in this [facility]09-18-2024 Miscellaneous Notes* [facility] - 05/21/2024 10:46 AM EDT Patient Notified of Surgery Dates and Times via telephone Call to patient's spouse. Pre-Admission Testing is scheduled at [facility] on: 06/09/24 @ 10:45am Surgery is Scheduled at [facility] on: 06/23/24 @ 9:45am Post Op is scheduled on: 07/03/24 @ 1pm documented in this encounterOhio Valley Surgical Hospital09-18-2024 Telephone encounter Note* [facility] - 05/21/2024 10:46 AM EDT Patient Notified of Surgery Dates and Times via telephone Call to patient's spouse. Pre-Admission Testing is scheduled at [facility] on: 06/09/24 @ 10:45am Surgery is Scheduled at [facility] on: 06/23/24 @ 9:45am Post Op is scheduled on: 07/03/24 @ 1pm [facility]09-17-2024 Miscellaneous Notes* Telephone Encounter - Jenn Zheng LPN - 05/20/2024 10:15 AM EDT Pts lvm. Pt having abd pain and increased anxiety. Had to reschedule gallbladder sx d/t infection. Working on diet control for symptoms but wanting to know if we can do anything for pain. Pleaseadvise. * Telephone Encounter - TERRY Monteiro - 05/20/2024 10:15 AM EDT Nothing we can do from primary care standpoint. Only thing I can suggest is ER if abd pain gets toobad. * Telephone Encounter - Jenn Zheng LPN - 05/20/2024 10:15 AM EDT notified at her appt earlier this week. documented in this encounterOhio Valley Surgical Hospital09-17-2024 Telephone encounter Note* Telephone Encounter - Jenn Zheng LPN - 05/20/2024 10:15 AM EDT Pts lvm. Pt having abd pain and increased anxiety. Had to reschedule gallbladder sx d/t infection. Working on diet control for symptoms but wanting to know if we can do anything for pain. Pleaseadvise. [facility]09-17-2024 Telephone encounter Note* Telephone Encounter - TERRY Monteiro - 05/20/2024 10:15 AM EDT Nothing we can do from primary care standpoint. Only thing I can suggest is ER if abd pain gets toobad. [employer] [id number] Telephone encounter Note* Telephone Encounter - Jenn Zheng LPN - 05/20/2024 10:15 AM EDT notified at her appt earlier this week. [facility] [employer] [id number] History of Present illness Narrative* Mc Chatman DPM - 05/19/2024 9:15 AM EDT Images from the original note were not included. Subjective Patient ID: Tom Khan is a 68 y.o. male who presents for Foot Wound Check ( Tom Khan is a 68 y.o. male who presents for Wound Check Right foot. Patient relates he stopped wearing surgical shoe 2weeks ago. Patient stopped dressing 1 week ago. PCP: Dr. Mini RUIZ 03/14/24, A1C: 7.0, BS: 130, SS: 11.5). HPI Established patient returns to clinic for follow up evaluation of right foot ulceration, right footforeign body puncture. Puncture site has healed. He [...] Depression (CMS/HCC) Diabetes (CMS/HCC) TypeII HTN (hypertension) (CMS/[facility]) Medications Current Outpatient Medications: atorvastatin (Lipitor) 80 [...] 3 (three) times a day with meals., Disp:, Rfl: labetalol (Normodyne) 200 MG tablet, Take [...] polyneuropathy associated with type 2 diabetes mellitus (CMS/[facility]) E11.42 2. Corns and callosities L84 Patient [...] understanding. Mc Chatman DPM documented in this encounterBates County Memorial [id number] History of Present illness Narrative* Nini Leos DPM - 05/01/2024 10:45 AM EDT Images from the original note were [...] 2 weeks ago. NKI. PCP: Dr. Morse 03/14/24, A1C: 7.0, BS: 284, SS: 11.5).). [...] Depression (CMS/HCC) Diabetes (CMS/HCC) TypeII HTN (hypertension) ([facility]) Medications Current Outpatient Medications: atorvastatin (Lipitor) 80 [...] 3 (three) times a day with meals., Disp:, Rfl: labetalol (Normodyne) 200 MG tablet, Take [...] type 2 diabetes mellitus (CMS/HCC) E11.42 2. Ulcer of right foot with fat layer exposed ([facility]) L97.512 3. Cellulitis of right foot L03.115 Patient was examined and evaluated. Reviewed that the cellulitis the right 1st MTPJ is resolving. He is to continuing to monitor this area. No further signs of cellulitis of the plantar mid foot. Theplantar mid foot ulceration was covered with hyperkeratotic [...] nonviable tissue including epidermal, dermal and deep subq tissue. Yellow protein build up and bioburden also debrided. Instrumentation used includes tissuenipper, curette, and #15 surgical blade. No pus [...] understanding. Nini Leos DPM documented in this [facility]08-12-2024 Miscellaneous Notes* Telephone Encounter - Pattie Santiago - 04/14/2024 12:49 PM EDT Patient's spouse called and cancelled the patient's Lap Summer. The patient is diabetic and has a foot infection. documented in this encounterOhio Valley Surgical Hospital08-12-2024 Telephone encounter Note* Telephone Encounter - Pattie Santiago - 04/14/2024 12:49 PM EDT Patient's spouse called and cancelled the patient's Lap Summer. The patient is diabetic and has a foot infection. [facility]08-02-2024 Miscellaneous Notes* [facility] - 04/04/2024 11:12 AM EDT Patient Notified of Surgery Dates and Times via telephone Pre-Admission Testing is scheduled at [facility] on:04/28/24 @ 10:45am Surgery is Scheduled at [facility] on: 05/12/24 @ 7:30am Post Op is scheduled on: 05/22/24 @ 1pm documented in this encounterOhio Valley Surgical Hospital08-02-2024 Telephone encounter Note* [facility] - 04/04/2024 11:12 AM EDT Patient Notified of Surgery Dates and Times via telephone Pre-Admission Testing is scheduled at [facility] on:04/28/24 @ 10:45am Surgery is Scheduled at [facility] on: 05/12/24 @ 7:30am Post Op is scheduled on: 05/22/24 @ 1pm [facility]08-01-2024 History of Present illness Narrative* Lucille Prabhakar MD - 04/03/2024 1:00 PM EDT Images from the original note [...] in October and has 4 stents. His feature writer is Soham in [place] and Dr Watts did the stent. He takes Ozempic and has been on it for 2 years or more. The patient has OCD and a lot of anxiety. The states that he has some significant cognitive decline. Past Medical History: Diagnosis Date Angina pectoris ([facility]) Anxiety Arthritis osteoarthritis Back pain Cardiomegaly Cataract CHF (congestive heart failure) ([facility]) Coronary artery disease Status post CABG COVID-19 Dental disease crowns Depression Deviated septum Diabetes mellitus type 2, controlled ([facility]) Difficult intravenous access OSEI (dyspnea on exertion) Esophageal stricture Fractures Gallstone GERD (gastroesophageal reflux disease) H/O esophagogastroduodenoscopy dilatation Heart attack ([facility]) 10/06/2023 4 stints Hiatal hernia Hyperlipidemia Hypertension Hyponatremia Incontinence of bowel Incontinence of urine 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 Mild cognitive impairment Obesity Obsessive compulsive disorder Peripheral neuropathy Pneumonia PONV (postoperative nausea and vomiting) Pulmonary vascular congestion Salmonella Sleep apnea cpap Urinary retention Visual impairment glasses retinal detatchment Vitamin D deficiency Vitreous hemorrhage ([facility]) Vocal cord granuloma Patient Active Problem List Diagnosis Type 2 diabetes mellitus with diabetic peripheral angiopathy without gangrene, with long-term current use of insulin ([facility]) Vitamin D deficiency Vocal cord granuloma Obstructive sleep apnea syndrome Cataract, nuclear sclerotic senile, right S/P total knee arthroplasty, right Retinal detachment Pseudophakia Primary osteoarthritis of right knee Obesity, Class II, BMI 35-39.9 MCI (mild cognitive impairment) Primary hypertension Mixed hyperlipidemia Mixed anxiety and depressive disorder Obsessive-compulsive disorder Autonomic neuropathy due to type 2 diabetes mellitus ([facility]) Coronary arteriosclerosis Complaint of paresthesia Moderate episode of recurrent major depressive disorder ([facility]) Chronic diastolic CHF (congestive heart failure) ([facility]) Fatigue Back pain Lower extremity weakness Diabetes mellitus ([facility]) Esophageal reflux CAD, multiple vessel Hyperlipidemia Obesity (BMI 30-39.9) Depression Hypertension Acute RI ([facility]) ST elevation myocardial infarction (STEMI) of inferior wall ([facility]) Constipation Spinal stenosis at L4-L5 level Urinary retention Gallstones Past Surgical History: Procedure Laterality Date BACK SURGERY Left Circumferential 09/21/2023 fusion CATARACT EXTRACTION, BILATERAL Bilateral COLONOSCOPY 2012 CORONARY ARTERY BYPASS GRAFT ESOPHAGOGASTRODUODENOSCOPY dilatation EYE SURGERY Bilateral LAMINECTOMY LUMBAR SINGLE LEVEL / L4/5 N/A 09/21/2023 Performed by Bobbi Steen MD at [facility] POSTERIOR LAMINECTOMY FUSION LUMBAR SINGLE LEVEL / L4/5 N/A 09/21/2023 Performed by Bobbi Steen MD at [facility] REPLACEMENT TOTAL KNEE Bilateral ROTATOR CUFF REPAIR SEPTOPLASTY No Known Allergies Current Outpatient Medications: acetaminophen (TYLENOL EXTRA STRENGTH) 500 mg tablet, Every 8 hours, Disp: , Rfl: aspirin 81 mg, Daily, Disp: , Rfl: atorvastatin (LIPITOR) 80 mg tablet, Take 0.5 tablets (40 mg total) by mouth in the morning., Disp:, Rfl: carvediloL (COREG) 12.5 mg tablet, Take [...] meals and nightly. For blood glucose (BG) 151- 200= 1 unit; BG 201-250 = 2 units; BG 251-300= 3 units; BG 301-350 = 4 units; [...] SL tablet, Q5M, Disp: , Rfl: omega 7-miz-qsd-fish oil (Fish OiL) 300-1,000 mg capsule, Take [...] 60 min Stress: Stress Concern Present (04/17/2023) [employer] [place] [employer] - Occupational Stress Questionnaire [...] to person, place, and time. He appears well- developed and well-nourished. No distress. HENT Head Normocephalic [...] no preauricular and no posterior auricular adenopathy present.cervical adenopathy not present Right cervical: No supraclavicular [...] portion gallbladder. No abnormal wall thickness, pericholecystic fluidnor biliary tree dilatation. No free fluid hepatorenal fossa no right renal obstruction. Liver echotexture is increased. No perihepatic fluid. Portal vein patent. Impression: * Cholelithiasis. If there is concern regarding acute biliary tract obstruction, consider HIDA scanor MRCP.. * Hepatic steatosis. Finalized by Miguel [...] me with any questions or concerns. - Lucille Prabhakar MD 04/04/24 11:36 AM documented in this encounterOhio Valley Surgical Hospital07-22-2024 Miscellaneous Notes* Telephone Encounter - Jenn Zheng LPN - 03/24/2024 8:42 AM EDT Pharmacy requesting to change to 1 tablet for 1,000mcg documented in this [facility]07-22-2024 Telephone encounter Note* Telephone Encounter - Jenn Zheng LPN - 03/24/2024 8:42 AM EDT Pharmacy requesting to change to 1 tablet for 1,000mcg [facility]07-17-2024 Miscellaneous Notes* Telephone Encounter - Jenn Zheng LPN - 03/19/2024 10:22 AM EDT Pt called for abd test results. Please review. * Telephone Encounter - TERRY Monteiro - 03/19/2024 10:22 AM EDT Show moderate stool burden. Would start capful daily miralax until having regular BMs * Telephone Encounter - Jenn Zheng LPN - 03/19/2024 10:22 AM EDT Patient notified and verbalized understanding. documented in this encounterOhio Valley Surgical Hospital07-17-2024 Telephone encounter Note* Telephone Encounter - Jenn Zheng LPN - 03/19/2024 10:22 AM EDT Pt called for abd test results. Please review. [facility]07-17-2024 Telephone encounter Note* Telephone Encounter - TERRY Monteiro - 03/19/2024 10:22 AM EDT Show moderate stool burden. Would start capful daily miralax until having regular BMs [facility]07-17-2024 Telephone encounter Note* Telephone Encounter - Jenn Zheng LPN - 03/19/2024 10:22 AM EDT Patient notified and verbalized understanding. [facility]07-12-2024 History of Present illness Narrative* TERRY Monteiro - 03/14/2024 11:20 AM EDT Subjective Patient ID: Tom Khan is a [...] Past Medical History: Diagnosis Date Angina pectoris ([facility]) Anxiety Arthritis osteoarthritis Back pain Cardiomegaly Cataract CHF (congestive heart failure) ([facility]) Coronary artery disease Status post CABG COVID-19 Dental disease crowns Depression Deviated septum Diabetes mellitus type 2, controlled ([facility]) Difficult intravenous access OSEI (dyspnea on exertion) Esophageal stricture Fractures Gallstone GERD (gastroesophageal reflux disease) H/O esophagogastroduodenoscopy dilatation Heart attack ([facility]) 10/06/2023 4 stints Hiatal hernia Hyperlipidemia Hypertension Hyponatremia Incontinence of bowel Incontinence of urine 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 Mild cognitive impairment Obesity Obsessive compulsive disorder Peripheral neuropathy Pneumonia PONV (postoperative nausea and vomiting) Pulmonary vascular congestion Salmonella Sleep apnea cpap Urinary retention Visual impairment glasses retinal detatchment Vitamin D deficiency Vitreous hemorrhage ([facility]) Vocal cord granuloma Past Surgical History Past Surgical History: Procedure Laterality Date BACK SURGERY Left Circumferential 09/21/2023 fusion CATARACT EXTRACTION, BILATERAL Bilateral COLONOSCOPY 2012 CORONARY ARTERY BYPASS GRAFT ESOPHAGOGASTRODUODENOSCOPY dilatation EYE SURGERY Bilateral LAMINECTOMY LUMBAR SINGLE LEVEL / L4/5 N/A 09/21/2023 Performed by Bobbi Steen MD at [facility] POSTERIOR LAMINECTOMY FUSION LUMBAR SINGLE LEVEL / L4/5 N/A 09/21/2023 Performed by Bobbi Steen MD at [facility] REPLACEMENT TOTAL KNEE Bilateral ROTATOR CUFF [...] 60 min Stress: Stress Concern Present (04/17/2023) [place] [employer] - Occupational Stress Questionnaire [...] units; BG 301-350 = 4 units; BG 351- 400 = 5 units. Notify prescriber if BG [...] (NITROSTAT) 0.4 MG SL tablet Q5M omega 3-gat-vjs-fish oil (Fish OiL) 300-1,000 mg capsule Take [...] injector Inject 0.5 mg under the skin every7 days. 0.5 mg subQ weekly for 4 weeks then increase to 1 mg weekly for 4 weeks, then increase to 2mg weekly. 3 mL 0 semaglutide (OZEMPIC) 2 mg/dose (8 mg/3 mL) pen injector Inject 2 mg under the skin every 7 days. 9mL 3 No current facility-administered medications for this [...] and Radiology Assessment/Plan 1. Symptomatic cholelithiasis - [facility] - [place], [place]; Future - X-ray abdomen ap 1 view; Future 2. Abdominal pain, unspecified abdominal location 3. Constipation, unspecified constipation type 4. Primary hypertension 5. Type 2 diabetes mellitus with diabetic peripheral angiopathy without gangrene, with long-term current use of insulin ([facility]) Surgical eval of gallstones. Will likely have [...] TERRY Monteiro 04/02/24 0715 documented in this encounterMcCullough-Hyde Memorial HospitalYottaa [id number] History of Present illness Narrative* Nathan Blankenship MD - 02/06/2024 3:15 PM EDT Images from the original note were not included. [address] [place] [address] [facility] [id number] Patient: Tom Khan Date of : 1955 [...] , EXTPOCUBAC , EXTPOCUTREP , EXTPOCUPH , EXTPOCUL EE in the last 72 hours. Last BUN [...] social history, past surgicalhistory and problem list. Past Medical History: Diagnosis Date Angina pectoris ([facility]) Anxiety Arthritis osteoarthritis Back pain Cardiomegaly Cataract CHF (congestive heart failure) ([facility]) Coronary artery disease Status post CABG COVID-19 Dental disease crowns Depression Deviated septum Diabetes mellitus type 2, controlled ([facility]) Difficult intravenous access OSEI (dyspnea on exertion) Esophageal stricture Fractures Gallstone GERD (gastroesophageal reflux disease) H/O esophagogastroduodenoscopy dilatation Heart attack ([facility]) 10/06/2023 4 stints Hiatal hernia Hyperlipidemia Hypertension Hyponatremia Incontinence of bowel Incontinence of urine 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 Mild cognitive impairment Obesity Obsessive compulsive disorder Peripheral neuropathy Pneumonia PONV (postoperative nausea and vomiting) Pulmonary vascular congestion Salmonella Sleep apnea cpap Urinary retention Visual impairment glasses retinal detatchment Vitamin D deficiency Vitreous hemorrhage ([facility]) Vocal cord granuloma Past Surgical History: Procedure Laterality Date BACK SURGERY Left Circumferential 09/21/2023 fusion CATARACT EXTRACTION, BILATERAL Bilateral COLONOSCOPY 2012 CORONARY ARTERY BYPASS GRAFT ESOPHAGOGASTRODUODENOSCOPY dilatation EYE SURGERY Bilateral LAMINECTOMY LUMBAR SINGLE LEVEL / L4/5 N/A 09/21/2023 Performed by Bobbi Steen MD at [facility] POSTERIOR LAMINECTOMY FUSION LUMBAR SINGLE LEVEL / L4/5 N/A 09/21/2023 Performed by Bobbi Steen MD at [facility] REPLACEMENT TOTAL KNEE Bilateral ROTATOR CUFF [...] units; BG 301-350 = 4 units; BG 351- 400 = 5 units. Notify prescriber if BG [...] (NITROSTAT) 0.4 MG SL tablet Q5M omega 2-izy-ycx-fish oil (Fish OiL) 300-1,000 mg capsule Take by mouth. polyethylene glycol (GLYCOLAX) 17 gram packet Take 17 g by mouth in the morning. semaglutide (OZEMPIC) 0.25 mg or 0.5 mg (2 mg/3 mL) pen injector Inject 0.5 mg under the skin every7 days. 0.5 mg subQ weekly for 4 weeks then increase to 1 mg weekly for 4 weeks, then increase to 2mg weekly. 3 mL 0 semaglutide (OZEMPIC) 1 mg/dose (4 mg/3 mL) pen injector Inject 1 mg under the skin once a week for90 days. 1 mg weekly for 4 weeks then increase to 2 mg weekly 3 mL 0 semaglutide (OZEMPIC) 2 mg/dose (8 mg/3 mL) pen injector Inject 2 mg under the skin every 7 days. 9mL 3 spironolactone (ALDACTONE) 25 mg tablet Daily [...] you for your understanding. documented in this encounterOhio Valley Surgical Hospital05-22-2024 Miscellaneous Notes* Telephone Encounter - Cris Mayes - 01/23/2024 10:42 AM EDT LM stating she is concerned his insulin [...] in office. His dexcom download is in social media executive for review. He takes 66u toujeo HS but she says she skipped it altogether a couple of nights if bs before bed is around 100. He also takes Humalog scale to 80-100: 8u, 101-150= 10 u, 151-200= 13 u, 201-250= 16, 250-300= 19 u etc, ozempic, and jardiance 25mg am. Download in social media executive. Please advise. * Telephone Encounter - Alea Mckenzie MD - 01/23/2024 10:42 AM EDT Let us drop Toujeo to 56 units at bedtime. Drop Humalog scale to 80-100: 5u, 101-150= 8 u, 151-200= 10 u, 201-250= 12, 250- 300= 14 u, over 300= 16 units Ok to see SENIOR OFFICE SUPPORT ASSISTANT SOSA in 2 months. Schedule with me next available visit * Telephone Encounter - Angelika Nichole - 01/23/2024 10:42 AM EDT Called pt to schedule an appt vm was full * Telephone Encounter - Cris Mayes - 01/23/2024 10:42 AM EDT I spoke with but we got disconnected. I left a detailed message on her phone with changes. documented in this encounterSpringfield HospitalMovero Technology05-22-2024 Telephone encounter Note* Telephone Encounter - Cris Mayes - 01/23/2024 10:42 AM EDT LM stating she is concerned his insulin [...] in office. His dexcom download is in social media executive for review. He takes 66u toujeo HS but she says she skipped it altogether a couple of nights if bs before bed is around 100. He also takes Humalog scale to 80-100: 8u, 101-150= 10 u, 151-200= 13 u, 201-250= 16, 250-300= 19 u etc, ozempic, and jardiance 25mg am. Download in social media executive. Please advise. [facility] Telephone encounter Note* Telephone Encounter - Alea Mckenzie MD - 01/23/2024 10:42 AM EDT Let us drop Toujeo to 56 units at bedtime. Drop Humalog scale to 80-100: 5u, 101-150= 8 u, 151-200= 10 u, 201-250= 12, 250- 300= 14 u, over 300= 16 units Ok to see SENIOR OFFICE SUPPORT ASSISTANT SOSA in 2 months. Schedule with me next available visit [employer]05-22-2024 Telephone encounter Note* Telephone Encounter - Angelika Nichole - 01/23/2024 10:42 AM EDT Called pt to schedule an appt vm was full [employer]05-22-2024 Telephone encounter Note* Telephone Encounter - Cris Mayes - 01/23/2024 10:42 AM EDT I spoke with but we got disconnected. I left a detailed message on her phone with changes. [employer]05-21-2024 History of Present illness Narrative* Gita Watts, DO - 01/22/2024 1:50 PM EDT Subjective Tom Khan is a 68 y.o. male Chief Complaint Follow-up 68-year-old gentleman returns for follow-up for the first time to see me following high risk non-STelevation RI and October 06 of this year with primary revascularization of the distal RCA and PLV branch with 3 drug-eluting stents in the large ramus branch with 1 drug-eluting stent with reportedlypreserved LV function. He has a history of four-vessel CABG, he is PITTS Y graft to the LAD and diagonal are patent howevervein grafts x 3 are occluded. He has [...] by mouth 2 times daily (morning and lateafternoon)., Disp: , Rfl: cyanocobalamin (Vitamin B-12) 100 mcg tablet, Take 1 tablet (100 mcg) by mouth once daily., Disp: ,Rfl: DULoxetine (Cymbalta) [address] capsule, Take [...] as directed per insulin instructions. Per sliding scale,Disp: , Rfl: LORazepam (Ativan) 1 mg tablet, [...] total., Disp: 100 tablet, Rfl: 11 omega 0-tfe-chy-fish oil (Fish OiL) 1,000 mg (120 mg-180 [...] 5. Depression, unspecified depression type 6. Old RI (myocardial infarction) 7. History of PTCA 8. [...] exam, discussion and plan. documented in this [facility] Work Phone: 1(752) 163-562705-21-2024 Instructions* Patient Instructions* Mona Huffman LPN - 01/22/2024 1:50 PM [...] to Increase physical activity. documented in this [facility] Work Phone: 1(314) 380-920404-29-2024 History of Present illness Narrative* Kayden Morse MD - 12/31/2023 11:30 AM EDT Subjective Patient ID: Tom Khan is a [...] extensive eval, per PCP, and had MRI, andortho. Eval. Injection done, helped some, but still hurts. Past Medical History Past Medical History: Diagnosis Date Angina pectoris ([facility]) Anxiety Arthritis osteoarthritis Back pain Cardiomegaly Cataract CHF (congestive heart failure) ([facility]) Coronary artery disease Status post CABG COVID-19 Dental disease crowns Depression Deviated septum Diabetes mellitus type 2, controlled ([facility]) Difficult intravenous access OSEI (dyspnea on exertion) Esophageal stricture Fractures Gallstone GERD (gastroesophageal reflux disease) H/O esophagogastroduodenoscopy dilatation Heart attack ([facility]) 10/06/2023 4 stints Hiatal hernia Hyperlipidemia Hypertension Hyponatremia Incontinence of bowel Incontinence of urine 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 Mild cognitive impairment Obesity Obsessive compulsive disorder Peripheral neuropathy Pneumonia PONV (postoperative nausea and vomiting) Pulmonary vascular congestion Salmonella Sleep apnea cpap Urinary retention Visual impairment glasses retinal detatchment Vitamin D deficiency Vitreous hemorrhage ([facility]) Vocal cord granuloma Past Surgical History Past Surgical History: Procedure Laterality Date BACK SURGERY Left Circumferential 09/21/2023 fusion CATARACT EXTRACTION, BILATERAL Bilateral COLONOSCOPY 2012 CORONARY ARTERY BYPASS GRAFT ESOPHAGOGASTRODUODENOSCOPY dilatation EYE SURGERY Bilateral LAMINECTOMY LUMBAR SINGLE LEVEL / L4/5 N/A 09/21/2023 Performed by Bobbi Steen MD at [facility] POSTERIOR LAMINECTOMY FUSION LUMBAR SINGLE LEVEL / L4/5 N/A 09/21/2023 Performed by Bobbi Steen MD at [facility] REPLACEMENT TOTAL KNEE Bilateral ROTATOR CUFF [...] 60 min Stress: Stress Concern Present (04/17/2023) [employer] [place] [employer] - Occupational Stress Questionnaire [...] units; BG 301-350 = 4 units; BG 351- 400 = 5 units. Notify prescriber if BG [...] (NITROSTAT) 0.4 MG SL tablet Q5M omega 2-wye-luu-fish oil (Fish OiL) 300-1,000 mg capsule Take by mouth. polyethylene glycol (GLYCOLAX) 17 gram packet Take 17 g by mouth in the morning. semaglutide (OZEMPIC) 0.25 mg or 0.5 mg (2 mg/3 mL) pen injector Inject 0.5 mg under the skin every7 days. 0.5 mg subQ weekly for 4 weeks then increase to 1 mg weekly for 4 weeks, then increase to 2mg weekly. 3 mL 0 semaglutide (OZEMPIC) 1 mg/dose (4 mg/3 mL) pen injector Inject 1 mg under the skin once a week for90 days. 1 mg weekly for 4 weeks then increase to 2 mg weekly 3 mL 0 semaglutide (OZEMPIC) 2 mg/dose (8 mg/3 mL) pen injector Inject 2 mg under the skin every 7 days. 9mL 3 spironolactone (ALDACTONE) 25 mg tablet Daily [...] gangrene, with long-term current use of insulin ([facility]) 2. Primary hypertension 3. Chronic diastolic CHF (congestive heart failure) ([facility]) 4. Rotator cuff tear arthropathy of right shoulder - Ambulatory referral to Orthopedic Surgery; Future Forms completed for shoes. Enc. To start daily exercise. Ortho. Eval. For shoulder. Cont. Current meds. F/U as sched. There are no discontinued medications. documented in this encounter[facility]04-25-2024 Miscellaneous Notes* Telephone Encounter - Galina Edgar - 12/27/2023 12:53 PM EDT Tom leaves a message to say he is still experiencing some stomach bloating, nausea and no motivation. He says he has also had cardiac issues he has been treated for since his back surgery. He asks for a return call. * Telephone Encounter - Galina Edgar - 12/27/2023 12:53 PM EDT Returned Tom's call. Explained to Tom that that symptoms he is experiencing would not be related to his lumbar surgery. He was advised to call his PCP or feature writer for follow up. He expresses understanding. documented in this encounterOhio Valley [facility] Hospital04-25-2024 Telephone encounter Note* Telephone Encounter - Galina Edgar - 12/27/2023 12:53 PM EDT Tom leaves a message to say he is still experiencing some stomach bloating, nausea and no motivation. He says he has also had cardiac issues he has been treated for since his back surgery. He asks for a return call. [facility] [employer] [id number] Telephone encounter Note* Telephone Encounter - Galina Edgar - 12/27/2023 12:53 PM EDT Returned Tom's call. Explained to Tom that that symptoms he is experiencing would not be related to his lumbar surgery. He was advised to call his PCP or feature writer for follow up. He expresses understanding. [facility] [employer] [id number] Miscellaneous Notes* Telephone Encounter - Eleonora Leblanc - 12/26/2023 5:09 PM EDT Pt wanted to see if he should restart taking Ozempic, he stated his sugars have been elevated-into the 200s. Please advise * Telephone Encounter - Alea Mckenzie MD - 12/26/2023 5:09 PM EDT I was not aware he stopped Ozempic. You should go back on it. Please pend prescription if he needs it. Thank you * Telephone Encounter - Eleonora Leblanc - 12/26/2023 5:09 PM EDT I have sent a separate pended script with explanation. Thank you! documented in this encounterOhio [facility] Hospital04-24-2024 Telephone encounter Note* Telephone Encounter - Eleonora Leblanc - 12/26/2023 5:09 PM EDT Pt wanted to see if he should restart taking Ozempic, he stated his sugars have been elevated-into the 200s. Please advise [facility]04-24-2024 Telephone encounter Note* Telephone Encounter - Alea Mckenzie MD - 12/26/2023 5:09 PM EDT I was not aware he stopped Ozempic. You should go back on it. Please pend prescription if he needs it. Thank you [facility]04-24-2024 Telephone encounter Note* Telephone Encounter - Eleonora Leblanc - 12/26/2023 5:09 PM EDT I have sent a separate pended script with explanation. Thank you! [facility]04-24-2024 Miscellaneous Notes* Telephone Encounter - Eleonora Leblanc - 12/26/2023 4:34 PM EDT Ok to sign and send documented in this encounterOhio Valley [facility] Hospital04-24-2024 Telephone encounter Note* Telephone Encounter - Eleonora Leblanc - 12/26/2023 4:34 PM EDT Ok to sign and send [facility]04-23-2024 Miscellaneous Notes* Telephone Encounter - Joyce Sethi - 12/25/2023 12:23 PM EDT Patient called, states he is taking a Statin and it is making Achy and coughing can he stop taking it Had a Referral for PT for Right shoulder and gotten a shot, which helped, ask if can get another shot, goes to [facility] for PT * Telephone Encounter - TERRY Monteiro - 12/25/2023 12:23 PM EDT Cardiology has him on statin, he really should be on a statin because of history of coronary disease. We can check total CK, lab order in. Can try CoQ10 to help with aches. Theres a referral for PT in chart from November. Does he need something different? * Telephone Encounter - Joyce Sethi - 12/25/2023 12:23 PM EDT Called spoke to patient, then he put his on the line. Relayed message to both. Will get lab done. She asked to call her first, her [phone]. documented in this encounterOhio [facility] Hospital04-23-2024 Telephone encounter Note* Telephone Encounter - Joyce Sethi - 12/25/2023 12:23 PM EDT Patient called, states he is taking a Statin and it is making Achy and coughing can he stop taking it Had a Referral for PT for Right shoulder and gotten a shot, which helped, ask if can get another shot, goes to [facility] for PT [facility]04-[facility] Telephone encounter Note* Telephone Encounter - TERRY Monteiro - 12/25/2023 12:23 PM EDT Cardiology has him on statin, he really should be on a statin because of history of coronary disease. We can check total CK, lab order in. Can try CoQ10 to help with aches. Theres a referral for PT in chart from November. Does he need something different? [facility]04-23-[facility] Telephone encounter Note* Telephone Encounter - Joyce Sethi - 12/25/2023 12:23 PM EDT Called spoke to patient, then he put his on the line. Relayed message to both. Will get lab done. She asked to call her first, her [phone]. [facility]04-12-2024 Miscellaneous Notes* Telephone Encounter - Kori Burnett - 12/14/2023 12:36 PM EDT Pt wanted to discuss ED if he's able to be on medication for it? Do you want him to discuss with Dr. Morse when he comes back for diabetic shoes 12/30? * Telephone Encounter - TERRY Monteiro - 12/14/2023 12:36 PM EDT Can't be on ED meds with nitroglycerin. Can discuss at next appt. documented in this [facility] [id number] Telephone encounter Note* Telephone Encounter - Kori Burnett - 12/14/2023 12:36 PM EDT Pt wanted to discuss ED if he's able to be on medication for it? Do you want him to discuss with Dr. Morse when he comes back for diabetic shoes 12/30? [facility] [employer] [id number] Telephone encounter Note* Telephone Encounter - TERRY Monteiro - 12/14/2023 12:36 PM EDT Can't be on ED meds with nitroglycerin. Can discuss at next appt. [facility]04-12-[facility] History of Present illness Narrative* TERRY Monteiro - 12/14/2023 11:20 AM EDT Subjective Patient ID: Tom Khan is a [...] Past Medical History: Diagnosis Date Angina pectoris ([facility]) Anxiety Arthritis osteoarthritis Back pain Cardiomegaly Cataract CHF (congestive heart failure) ([facility]) Coronary artery disease Status post CABG COVID-19 Dental disease crowns Depression Deviated septum Diabetes mellitus type 2, controlled ([facility]) Difficult intravenous access OSEI (dyspnea on exertion) [...] retinal detatchment Vitamin D deficiency Vitreous hemorrhage ([facility]) Vocal cord granuloma Past Surgical History Past Surgical History: Procedure Laterality Date BACK SURGERY Left Circumferential 09/21/2023 fusion CATARACT EXTRACTION, BILATERAL Bilateral COLONOSCOPY 2012 CORONARY ARTERY BYPASS GRAFT ESOPHAGOGASTRODUODENOSCOPY dilatation EYE SURGERY Bilateral LAMINECTOMY LUMBAR SINGLE LEVEL / L4/5 N/A 09/21/2023 Performed by Bobbi Steen MD at [facility] POSTERIOR LAMINECTOMY FUSION LUMBAR SINGLE LEVEL / L4/5 N/A 09/21/2023 Performed by Bobbi Steen MD at [facility] REPLACEMENT TOTAL KNEE Bilateral ROTATOR CUFF [...] 60 min Stress: Stress Concern Present (04/17/2023) [employer] [place] [employer] - Occupational Stress Questionnaire [...] units; BG 301-350 = 4 units; BG 351- 400 = 5 units. Notify prescriber if BG [...] (NITROSTAT) 0.4 MG SL tablet Q5M omega 1-hcq-dbp-fish oil (Fish OiL) 300-1,000 mg capsule Take [...] injector Inject 0.5 mg under the skin every7 days. 0.5 mg subQ weekly for 4 weeks then increase to 1 mg weekly for 4 weeks, then increase to 2mg weekly. 3 mL 0 semaglutide (OZEMPIC) 1 mg/dose (4 mg/3 mL) pen injector Inject 1 mg under the skin once a week for90 days. 1 mg weekly for 4 weeks then increase to 2 mg weekly 3 mL 0 semaglutide (OZEMPIC) 2 mg/dose (8 mg/3 mL) pen injector Inject 2 mg under the skin every 7 days. 9mL 3 No current facility-administered medications for this [...] gangrene, with long-term current use of insulin ([facility]) - POCT Hemoglobin A1c A1C marginal control [...] visit. TERRY Monteiro 01/01/242119 documented in this encounterOhio [facility] Hospital04-09-2024 History of Present illness Narrative* NADEGE Smith - 12/11/2023 3:00 PM EDT OUTPATIENT NUTRITION CONSULTATION- ADULT Date: 12/11/23 Time [...] (247 lb) 11/26/23 114.8 kg (253 lb) [place] Body Weight [place] body weight: 73 kg (160 lb 15 oz) Adjusted ideal body weight: 88.6 kg (195 lb 5.8 oz) Lab Results: POCT A1c Lab Results Component Value Date UKSHTNI0I 8.4 (A) 08/07/2023 A1c Lab Results Component [...] carbohydrate counting, healthy food selections, weight reduction, sourcesof fat, and sources of fiber, menu planning, [...] questions after session. Apolinar Mckenzie RD., LD. [facility] documented in this encounterOhio [facility] Hospital04-03-2024 Miscellaneous Notes* Telephone Encounter - Tabitha Carballo - 12/05/2023 4:53 PM EDT 12/05/23 Tom Khan 1955 Has Contacted our office requesting Nutrition Education. If you would like to refer Tom, please sign pended referral if agreeable for Education. Thank you! [facility] [phone] documented in this encounterOhio [facility]04-03-2024 Telephone encounter Note* Telephone Encounter - Tabitha Carballo - 12/05/2023 4:53 PM EDT 12/05/23 Tom Khan 1955 Has Contacted our office requesting Nutrition Education. If you would like to refer Tom, please sign pended referral if agreeable for Education. Thank you! [facility] [phone] [facility] [id number] Miscellaneous Notes* Telephone Encounter - Alethea Arteaga - 11/28/2023 12:19 PM EDT Patient is concerned with a low that he had around 1am. Dexcom download attached in social media executive. Please advise. Toujeo 66u HS Humalog scale to: 0-100: 6u, 101-150= 8 u, 151-200= 11 u, 201-250= 14, 250-300= 17 etc. * Telephone Encounter - Aela Mckenzie MD - 11/28/2023 12:19 PM EDT I see a 1:00 a.m. low about 1 week back. Looks like he has not had anymore lows since. If this is correct, no need to change any doses. If he is needing to eat a bedtime snack to avoid overnight lows, then drop Toujeo to 60 units HS and avoid bedtime snacking. * Telephone Encounter - Cris Mayes - 11/28/2023 12:19 PM EDT Patient states he only had the one low and no bedtime snacking is done so patient informed of no changes at this time. I told him of lows continue to call us. documented in this encounterOhio [facility] Hospital03-27-2024 Telephone encounter Note* Telephone Encounter - Alethea Arteaga - 11/28/2023 12:19 PM EDT Patient is concerned with a low that he had around 1am. Dexcom download attached in social media executive. Please advise. Toujeo 66u HS Humalog scale to: 0-100: 6u, 101-150= 8 u, 151-200= 11 u, 201-250= 14, 250-300= 17 etc. [facility] [id number] Telephone encounter Note* Telephone Encounter - Alea Mckenzie MD - 11/28/2023 12:19 PM EDT I see a 1:00 a.m. low about 1 week back. Looks like he has not had anymore lows since. If this is correct, no need to change any doses. If he is needing to eat a bedtime snack to avoid overnight lows, then drop Toujeo to 60 units HS and avoid bedtime snacking. [facility] [employer] [id number] Telephone encounter Note* Telephone Encounter - Cris Mayes - 11/28/2023 12:19 PM EDT Patient states he only had the one low and no bedtime snacking is done so patient informed of no changes at this time. I told him of lows continue to call us. [facility] [employer] [id number] Miscellaneous Notes* Telephone Encounter - Kori Burnett - 11/27/2023 11:37 AM EDT Pt would like order for aquatic therapy. Please send to [facility] in [place]. Please place order. * Telephone Encounter - TERRY Monteiro - 11/27/2023 11:37 AM EDT Need clearance from cardiology for water therapy * Telephone Encounter - Kori Burnett - 11/27/2023 11:37 AM EDT Notified pt. documented in this encounterOhio Valley [facility] Hospital03-26-2024 Telephone encounter Note* Telephone Encounter - Kori Burnett - 11/27/2023 11:37 AM EDT Pt would like order for aquatic therapy. Please send to [facility] in [place]. Please place order. [facility] [employer] [id number] Telephone encounter Note* Telephone Encounter - TERRY Monteiro - 11/27/2023 11:37 AM EDT Need clearance from cardiology for water therapy [facility] [employer] Work Phone: 1(203) 680-683303-26-2024 Telephone encounter Note* Telephone Encounter - Kori Burnett - 11/27/2023 11:37 AM EDT [facility] pt. [facility] History of Present illness Narrative* HECTOR Vieyra - 11/26/2023 10:00 AM EDT Images from the original note were not included. [address] [facility] [id number] Patient: Tom Khan Date of : 1955 Encounter Date: 11/26/2023 History of Present Illness: Chief Complaint: Voiding dysfunction The patient is a 68 y.o. male, a new patient, and is here with his for voiding dysfunction. Hewas referred by Dr. Steen. Patient underwent L4-L5 posterior laminectomy and fusion 09/21/2023. Issues with residual numbness in the bilateral lower extremities as well as incontinence per Dr. Steen's office note. Maintained on tamsulosin 0.4mg once qhs for the past few months or so. NO prior Urologic surgery. Patient reports that PRIOR to his back surgery he had urinary urgency and urge incontinence as wellas fecal urgency/urge incontinence. Nocturia x 3. No issues with urinary frequency. Post back surgery his nocturia is unchanged. No longer has urge incontinence or fecal issues but still with elementof urinary urgency. Denies gross hematuria, denies frequency, denies dysuria, denies UTIs. Does repo rt intermittent splayed urinary stream. He did have a patel catheter around the time of his back surgery--very painful placement per /pt--not clear if inexperienced nurse, lack of coude, etc. He does drink caffeine in the form of 2-3 cups of coffee daily and sometimes additional pop intake (cola). He also reports erectile dysfunction--not a candidate for PDE5 as he had RI in 10/2023 per and carries nitroglycerin (never [...] social history, past surgicalhistory and problem list. Past Medical History: Diagnosis Date Angina pectoris ([facility]) Anxiety Arthritis osteoarthritis Back pain Cardiomegaly Cataract CHF (congestive heart failure) ([facility]) Coronary artery disease Status post CABG COVID-19 Dental disease crowns Depression Deviated septum Diabetes mellitus type 2, controlled ([facility]) Difficult intravenous access OSEI (dyspnea on exertion) Esophageal stricture Fractures Gallstone GERD (gastroesophageal reflux disease) H/O esophagogastroduodenoscopy dilatation Heart attack ([facility]) 10/06/2023 4 stints Hiatal hernia Hyperlipidemia Hypertension [...] 09/21/2023 Performed by Bobbi Steen MD at [facility] POSTERIOR LAMINECTOMY FUSION LUMBAR SINGLE LEVEL / L4/5 N/A 09/21/2023 Performed by Bobbi Steen MD at [facility] REPLACEMENT TOTAL KNEE Bilateral ROTATOR CUFF [...] units; BG 301-350 = 4 units; BG 351- 400 = 5 units. Notify prescriber if BG [...] (NITROSTAT) 0.4 MG SL tablet Q5M omega 6-ofh-iee-fish oil (Fish OiL) 300-1,000 mg capsule Take [...] denies change in appetite, weight loss or gain,malaise (depression), chills, fever, or diaphoresis (sweating). Eyes: Patient denies vision changes or diplopia (double vision). Ears, Nose, Nose and Throat: Patient denies tinnitus (ringing in ears), hearing loss, epistaxis (nose bleed), hoarseness, and dysphagia (hard to swallow). Respiratory: Patient denies dyspnea (shortness of breath), cough, hemotypsis (blood in sputum), andwheezing. Cardiovascular: Patient denies chest pain, palpitations, and shortness of breath. Gastrointestinal: Patient denies abdominal pain, nausea, vomiting, bloating, diarrhea (chronic), constipation (chronic), melena (black stool), hematochezia (blood in stool). Musculoskeletal: Patient denies joint pain/stiffness, weakness, swelling, and backache. Neurologic: Patient denies weakness, dizziness, loss of consciousness, transient ischemic symptoms,and seizures. Integument: Patient denies rashes and non-healing [...] back to the 0.4 mg. I did sendin a new prescription to reflect the 0.8 mg so that he does not run out should he stay on it. With respect to his erectile dysfunction he does possess nitroglycerin even though he has never hadto use it but did have RI in October of 2023. He understands he has not a candidate for PDE5. We briefly discussed potential for vacuum erection device as well as possible penile injection therapy. He will consider his options. Would like him to follow-up short-term sometime in the next 2-3 months in the [place] office location, establish with 1 of the physicians, rechecked postvoid residual at that time. If he decides he wants to pursue either the erectile dysfunction treatment and or increase in the tamsulosin he will contact the office and we can do so. JESSICA did show nodular area right base with a completely normal PSA within the last 2 weeks. This canbe rechecked short-term. HECTOR VIEYRA This note was [...] HECTOR Vieyra 11/26/23 1110 documented in this encounterOhio Valley Surgical Hospital03-21-2024 Miscellaneous Notes* Telephone Encounter - Cris Mayes - 11/22/2023 9:20 AM EDT LM that a change was made to [...] has any upcoming appointments with our office. * Telephone Encounter - TERRY Doe - 11/22/2023 9:20 AM EDT Decrease Humalog scale to: 0-100: 6u, 101-150= 8 u, 151-200= 11 u, 201-250= 14, 250-300= 17 etc. Dexcom download in 1 week * Telephone Encounter - Cris Mayes - 11/22/2023 9:20 AM EDT Spoke with , she was unable to write down the new scale at this time and asked that the new scale be sent in a [employer] message. Message sent. documented in this encounterMcCullough-Hyde [facility] HospitalObserve Medical [facility] [id number] Telephone encounter Note* Telephone Encounter - Cris Mayes - 11/22/2023 9:20 AM EDT LM that a change was made to [...] has any upcoming appointments with our office. [facility]03-21-2024 Telephone encounter Note* Telephone Encounter - TERRY Doe - 11/22/2023 9:20 AM EDT Decrease Humalog scale to: 0-100: 6u, 101-150= 8 u, 151-200= 11 u, 201-250= 14, 250-300= 17 etc. Dexcom download in 1 week [employer] Work Phone: 1(942) 132-263303-21-2024 Telephone encounter Note* Telephone Encounter - Cris Mayes - 11/22/2023 9:20 AM EDT Spoke with , she was unable to write down the new scale at this time and asked that the new scale be sent in a [employer] message. Message sent. [employer]03-21-2024 Miscellaneous Notes* Telephone Encounter - Prisca Burnett - 11/22/2023 8:00 AM EDT Patient sent a [employer] message asking about his dexa scan that he is supposed to get done. Can you please place this order? * Telephone Encounter - TERRY Monteiro - 11/22/2023 8:00 AM EDT HIDA scan was recommended, not DEXA HIDA scan order placed * Telephone Encounter - Prisca Burnett - 11/22/2023 8:00 AM EDT Patient notified, states he will call back for central scheduling number. * Telephone Encounter - Kori Burnett - 11/22/2023 8:00 AM EDT Pt called back, was given scheduling number. He states the pain in abd getting worse. Advised to get 1st avail. Also, patient wanted to let you know his blood sugars are all over the place and back is bothering him. * Telephone Encounter - TERRY Monteiro - 11/22/2023 8:00 AM EDT Likely will have to wait a couple weeks for HIDA scan, if he is having increased back and abd pain,he should be evaluated in ED * Telephone Encounter - Kori Burnett - 11/22/2023 8:00 AM EDT Called patient, he has HIDA scan 12/05. Pt was advised to ER if worse. documented in this encounterOhio [facility]03-[facility]24 Telephone encounter Note* Telephone Encounter - Prisca Burnett - 11/22/2023 8:00 AM EDT Patient sent a [employer] message asking about his dexa scan that he is supposed to get done. Can you please place this order? [facility]03-[facility] Telephone encounter Note* Telephone Encounter - TERRY Monteiro - 11/22/2023 8:00 AM EDT HIDA scan was recommended, not DEXA HIDA scan order placed [facility]03-21-20[facility] Telephone encounter Note* Telephone Encounter - Prisca Burnett - 11/22/2023 8:00 AM EDT Patient notified, states he will call back for central scheduling number. [facility]03-21-[facility] Telephone encounter Note* Telephone Encounter - Kori Burnett - 11/22/2023 8:00 AM EDT Pt called back, was given scheduling number. He states the pain in abd getting worse. Advised to get 1st avail. Also, patient wanted to let you know his blood sugars are all over the place and back is bothering him. [facility]03-21-20[facility] Telephone encounter Note* Telephone Encounter - TERRY Monteiro - 11/22/2023 8:00 AM EDT Likely will have to wait a couple weeks for HIDA scan, if he is having increased back and abd pain,he should be evaluated in ED [facility]03-21-2024 Telephone encounter Note* Telephone Encounter - Kori Burnett - 11/22/2023 8:00 AM EDT Called patient, he has HIDA scan 12/05. Pt was advised to ER if worse. [facility]03-18-2024 Miscellaneous Notes* Telephone Encounter - Alethea Artaega - 11/19/2023 2:56 PM EDT Patient states that even when he eats well high blood sugars are elevated afterwards. Dexcom download is attached in social media executive. Please advise. Toujeo 66u HS Humalog sliding scale <100 none 101-150: 9u 151-200: 12u 201-250: 15u etc * Telephone Encounter - TERRY Doe - 11/19/2023 2:56 PM EDT Increase Humalog scale to 80-100: 8u, 101-150= 10 u, 151-200= 13 u, 201-250= 16, 250-300= 19 u etc * Telephone Encounter - Shanice Rodríguez RN - 11/19/2023 2:56 PM EDT Called. NA.LM documented in this encounterOhio Valley Surgical Hospital03-18-2024 Telephone encounter Note* Telephone Encounter - Alethea Reinosokinnon - 11/19/2023 2:56 PM EDT Patient states that even when he eats well high blood sugars are elevated afterwards. Dexcom download is attached in social media executive. Please advise. Toujeo 66u HS Humalog sliding scale <100 none 101-150: 9u 151-200: 12u 201-250: 15u etc [facility] [employer] [id number] Telephone encounter Note* Telephone Encounter - Shobha Delong APRN-QI - 11/19/2023 2:56 PM EDT Increase Humalog scale to 80-100: 8u, 101-150= 10 u, 151-200= 13 u, 201-250= 16, 250-300= 19 u etc [facility] [employer] [facility] Work Phone: [phone] Telephone encounter Note* Telephone Encounter - Shanice Rodríguez RN - 11/19/2023 2:56 PM EDT Called. NA.LM [facility]03-18-2024 Miscellaneous Notes* Telephone Encounter - Kori Burnett - 11/19/2023 1:42 PM EDT Error-Pt called for results, gave to Prisca documented in this encounterOhio Valley Surgical Hospital03-18-2024 Telephone encounter Note* Telephone Encounter - Kori Burnett - 11/19/2023 1:42 PM EDT Error-Pt called for results, gave to Prisca Tocagen [id number] History of Present illness Narrative* Leeann Castillo APRN-PROFESSOR OF SOCIOLOGY - 11/15/2023 2:00 PM EDT Subjective Patient ID: Tom Khan is a 68 y.o. male. Chief Complaint Chief Complaint Patient presents with Follow-up New pt/establish care SOB/feet hurt HPI HPI New pt here to establish care Here with EMR reviewed in detail - neurosurgery notes, cardiology notes, prior imaging, prior PCP notes, endonotes Past histories, medications, allergies, immunizations reviewed PMH CABG and CAD s/p STEMI w/ stents at [facility] in October. LVEF 55%. Has f/u with Dr. Watts January 21. Sees Dr. Farfan (psychiatry [facility]) Recent back surgery - Dr. Charles S/P [...] Past Medical History: Diagnosis Date Angina pectoris ([facility]) Anxiety Arthritis osteoarthritis Back pain Cardiomegaly Cataract CHF (congestive heart failure) ([facility]) Coronary artery disease Status post CABG COVID-19 Dental disease crowns Depression Deviated septum Diabetes mellitus type 2, controlled ([facility]) Difficult intravenous access OSEI (dyspnea on exertion) Esophageal stricture Fractures Gallstone GERD (gastroesophageal reflux disease) H/O esophagogastroduodenoscopy dilatation Heart attack ([facility]) 10/06/2023 4 stints Hiatal hernia Hyperlipidemia Hypertension Hyponatremia Incontinence of bowel Incontinence of urine 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 Mild cognitive impairment Obesity Obsessive compulsive disorder Peripheral neuropathy Pneumonia PONV (postoperative nausea and vomiting) Pulmonary vascular congestion Salmonella Sleep apnea cpap Urinary retention Visual impairment glasses retinal detatchment Vitamin D deficiency Vitreous hemorrhage ([facility]) Vocal cord granuloma Past Surgical History Past Surgical History: Procedure Laterality Date BACK SURGERY Left Circumferential 09/21/2023 fusion CATARACT EXTRACTION, BILATERAL Bilateral COLONOSCOPY 2012 CORONARY ARTERY BYPASS GRAFT ESOPHAGOGASTRODUODENOSCOPY dilatation EYE SURGERY Bilateral LAMINECTOMY LUMBAR SINGLE LEVEL / L4/5 N/A 09/21/2023 Performed by Bobbi Steen MD at [facility] POSTERIOR LAMINECTOMY FUSION LUMBAR SINGLE LEVEL / L4/5 N/A 09/21/2023 Performed by Bobbi Steen MD at [facility] REPLACEMENT TOTAL KNEE Bilateral ROTATOR CUFF [...] 60 min Stress: Stress Concern Present (04/17/2023) [employer] [place] [employer] Occupational Health - Occupational Stress Questionnaire [...] units; BG 301-350 = 4 units; BG 351- 400 = 5 units. Notify prescriber if BG [...] (NITROSTAT) 0.4 MG SL tablet Q5M omega 6-tce-tap-fish oil (Fish OiL) 300-1,000 mg capsule Take [...] normal. Left Ear: Hearing normal. Mouth/Throat: Lips: Dwight. Pharynx: Oropharynx is clear. Eyes: General: No [...] gangrene, with long-term current use of insulin ([facility]) 2. OSEI (dyspnea on exertion) [...] elevation myocardial infarction (STEMI) of inferior wall ([facility]) 11. Moderate episode of recurrent major depressive disorder ([facility]) Return in about 3 weeks (around 12/06/2023) for Recheck. Medications Discontinued During This Encounter Medication Reason gabapentin (NEURONTIN) 300 mg capsule Therapy completed There are no Patient Instructions on file for this visit. TERRY Monteiro 12/02/23 1507 documented in this encounterOhio Valley Surgical Hospital02-29-2024 History of Present illness Narrative* Bobbi Steen MD - 11/01/2023 1:30 PM EST Images from the original note were not included. [facility] [address] [place] [address], [address] [place] [address] * CHART NOTE ? 11/06/2023 Patient: Tom Khan 1955 [id number] Physician: Bobbi Steen MD CHIEF COMPLAINT Post-op [...] his core and legs. Denies loss of plate sensitizer strength, saddle anesthesia, urinary or bowel dysfunction, [...] by mouth in the morning. 60 mg inmorning 30 at night., Disp: , Rfl: empagliflozin [...] meals and nightly. For blood glucose (BG) 151- 200= 1 unit; BG 201-250 = 2 units; BG 251-300= 3 units; BG 301-350 = 4 units; [...] SL tablet, Q5M, Disp: , Rfl: omega 1-deb-fal-fish oil (Fish OiL) 300-1,000 mg capsule, Take [...] total) by mouth 3 (three) times a dayfor 30 days., Disp: 90 capsule, Rfl: 3 [...] Right achilles: 2+ Left achilles: 2+ Right plate sensitizer: 2+ Left plate sensitizer: 2+ Right Moon: absent Left Moon: absent [...] record of the patient encounter. Inadvertent computerized weigher packing errors related to syntax, spelling, homophones, and/or inaudibility may be present. Scribe Statement: Scribed for and in the presence of Bobbi Steen MD by Chaz Clark. Provider Statement: I, Bobbi Steen MD personally performed the services described in the documentation, as scribedby Chaz Clark in my presence, and it is both accurate and complete documented in this encounterMcCullough-Hyde Memorial HospitalObserve Medical Beaumont [id number] Instructions* Patient Instructions* PRASHANT Rockwell - 11/01/2023 1:30 PM EST Patient was seen by Dr. Steen. Patient was given an order for physical and aquatic therapy. Neurontin 300mg. 1 tablet every 8 hours. #90 30 day supply, 3 refills. Lumbar spine Flex/Ext x ray. A referral to urology. Patient will follow up after Aquatic and physical therapy. JA documented in this encounterMcCullough-Hyde Memorial HospitalObserve Medical Health [id number] Evaluation + Plan note* Assessment & Plan Note - TERRY Trinh - 10/22/2023 4:14 PM EST Associated Problem(s): Obesity (BMI 30-39.9) Reviewed the merits of healthy lifestyle choices on overall cardiovascular health. [facility] Work Phone: [phone]) 972-859902-19-2024 Evaluation + Plan note* Assessment & Plan Note - TERRY Trinh - 10/22/2023 4:14 PM ESTAssociated Problem(s): Diabetes mellitus (CMS/HCC) On statin/ARB Reports most recent hemoglobin A1c 8.0 [facility] Work Phone: [phone]) 127-577502-19-2024 Miscellaneous Notes* Assessment & Plan Note - TERRY Trinh - 10/22/2023 4:14 PM ESTAssociated Problem(s): Obesity (BMI 30-39.9) Reviewed the merits of healthy lifestyle choices on overall cardiovascular health. * Assessment & Plan Note - TERRY Trinh - 10/22/2023 4:14 PM EST Associated Problem(s): Diabetes mellitus (CMS/HCC) On statin/ARB Reports most recent hemoglobin A1c 8.0 * Assessment & Plan Note - TERRY Trinh - 10/22/2023 4:13 PM EST Associated Problem(s): Ischemic cardiomyopathy October 2023 TTE LVEF 55% Inferior hypokinesis Left atrium mild MR trace * Assessment & Plan Note - TERRY Trinh - 10/22/2023 4:13 PM EST Associated Problem(s): Hypertension Slightly elevated in office. Report home health care nurse - systolic blood pressure 149 * Assessment & Plan Note - TERRY Trinh - 10/22/2023 4:13 PM EST Associated Problem(s): Hyperlipidemia Tolerating high intensity statin * Assessment & Plan Note - TERRY Trinh - 10/22/2023 4:12 PM EST Associated Problem(s): CAD, multiple vessel 2009 CABG x5 Oct 06, 2023: In-house inferior STEMI while in inpatient rehab following L4-L5 laminectomy. Managed emergently by Dr. Watts. Proximal, mid/distal and distal PDA of RCA PCI/RHINA x 3 Ramus PCI/RHINA Y graft to PITTS-diagonal - LAD: patent GRISELDA-OM patent SVG-RCA occluded SVG-circumflex/? OM occluded documented in this encounterUnPaulding County Hospital Work Phone: [phone]) 435-611802-19-2024 Evaluation + Plan note* Assessment & Plan Note - TERRY Trinh - 10/22/2023 4:13 PM ESTAssociated Problem(s): Ischemic cardiomyopathy October 2023 TTE LVEF 55% Inferior hypokinesis Left atrium mild MR trace [facility] Work Phone: [phone]) 849-539902-19-2024 Evaluation + Plan note* Assessment & Plan Note - TERRY Trinh - 10/22/2023 4:13 PM ESTAssociated Problem(s): Hypertension Slightly elevated in office. Report home health care nurse - systolic blood pressure 149 [facility] Work Phone: [phone]) 475-637202-19-2024 Evaluation + Plan note* Assessment & Plan Note - TERRY Trinh - 10/22/2023 4:13 PM ESTAssociated Problem(s): Hyperlipidemia Tolerating high intensity statin [facility] Work Phone: [phone]) 555-286202-19-2024 Evaluation + Plan note* Assessment & Plan Note - TERRY Trinh - 10/22/2023 4:12 PM ESTAssociated Problem(s): CAD, multiple vessel 2008 CABG x5 Oct 06, 2023: In-house inferior STEMI while in inpatient rehab following L4-L5 laminectomy. Managed emergently by Dr. Watts. Proximal, mid/distal and distal PDA of RCA PCI/RHINA x 3 Ramus PCI/RHINA Y graft to PITTS-diagonal - LAD: patent GRISELDA-OM patent SVG-RCA occluded SVG-circumflex/? OM occluded [facility] Work Phone: [phone]) 747-884502-14-2024 History of Present illness Narrative* TERRY Trinh - 10/17/2023 12:30 PM EST Chief Complaint Seem to be okay Reason for Visit Patient presents to the office today for outpatient follow-up for hospital follow-up. Patient was recently hospitalized at [facility]. The patient was seen in Cardiology consult with subsequent cardiovascular management by [facility] Hospitalization records have been reviewed. Reason for Cardiology Consultation: Inhouse inferior STEMI Consulting Apple Picker: Dr. Watts Cardiovascular testing: Cardiac cath subsequent [...] and the back pain has been limiting hisphysical activity. He denies any recurrence of chest burning since discharge. His right radial cathsite has healed without adverse sequela. He remains fatigued. Concomitant medication: Brilinta: No dyspnea; he has insurance coverage Lipitor: No myalgia No complaints of hypotension. Patient reports that overall has no complaint(s) of chest pain, chest pressure/discomfort, dyspnea,irregular heart beat, and lower extremity edema or [...] for up to 3 doses total. omega 5-hft-fjq-fish oil (Fish OiL) 1,000 mg (120 mg-180 [...] making process incorporating patients unique circumstances, the followingtreatment plan will be initiated: 1. Prescription drug management of cardiovascular medication for efficacy, adherence to treatment, side effect assessment and polypharmacy. Current treatment clinically warranted and to continue withfollowing modifications: - Increase spironolactone 25mg daily 2. Chem6 in one week 3. Lipids/AST/ALT in 2 months 4. Let me know when surgeon says that cardiac rehab would be ok 5. Return for follow-up; in the interim, contact the office if new symptoms arise. Dr. Watts 3 months Tesha Gavin MSN, TECHNOLOGY APPLICATIONS TEACHER-PROFESSOR OF SOCIOLOGY, PMHNP-[facility] Please excuse any errors in grammar or translation related to this dictation. Voice recognition software was utilized to prepare this document. documented in this [facility] Work Phone: [phone]) 540-164402-14-2024 Instructions* Patient Instructions* TERRY Trinh - 10/17/2023 12:30 PM EST [...] making process incorporating patients unique circumstances, the followingtreatment plan will be initiated: 1. Prescription drug management of cardiovascular medication for efficacy, adherence to treatment, side effect assessment and polypharmacy. Current treatment clinically warranted and to continue withfollowing modifications: - Increase spironolactone 25mg daily 2. Chem6 in one week 3. Lipids/AST/ALT in 2 months 4. Let me know when surgeon says that cardiac rehab would be ok 5. Return for follow-up; in the interim, contact the office if new symptoms arise. Dr. Watts 3 months documented in this [facility] Work Phone: [phone]) 520-707302-12-2024 History of Present illness Narrative* SANDI Antoine - 10/15/2023 2:10 PM EST Subjective Patient ID: Tom Khan is a 68 y.o. male. He was discharged from [facility] this Sunday after he had his RI, prior to that he was in rehab [...] Oct He will see Dr Guevara the feature writer on the Oct 17 Blood sugars have been running 150 - 200 - he has been off of ozempic for 6 months and it has been awhile since they have seen endocrine He has an appt with [facility] tomorrow He had the initial assessment for PT intake at home and will likely being home PT for his back and OP cardiac PT as well He has been gradually increasing his home activity as discussed with his neurosurgeon and feature writer His level of pain is subsiding and he is no longer on any of the narcotic pain relievers He is using miralax to manage his bowels The following portions of the patient's history were reviewed and updated as appropriate: allergies, current medications, past family history, past medical history, past social history, past surgicalhistory, problem list, and medication reconciliation was completed including current medication andpost discharge medication. Review of Systems Constitutional: Positive for activity change. HENT: Negative. Eyes: Negative. Respiratory: Negative. Cardiovascular: Negative. Gastrointestinal: Positive for constipation. Genitourinary: Positive for difficulty urinating. Musculoskeletal: Positive for arthralgias, back pain and gait problem. Skin: Negative. Psychiatric/Behavioral: Positive for agitation, decreased concentration and dysphoric mood. The patient is nervous/anxious. Objective Physical Exam Vitals and nursing note reviewed. Exam conducted with a chemical process project engineer present (). Constitutional: General: He is not [...] laminectomy Chronic diastolic CHF (congestive heart failure) ([facility]) - carvediloL (COREG) 12.5 mg tablet; Take 1 tablet (12.5 mg total) by mouth in the morning and 1 tablet (12.5 mg total) before bedtime. ST elevation myocardial infarction (STEMI) of inferior wall ([facility]) Type 2 diabetes mellitus with diabetic peripheral angiopathy without gangrene, with long-term current use of insulin ([facility]) Primary hypertension History of urinary retention - tamsulosin (FLOMAX) 0.4 mg capsule; Take 1 capsule (0.4 mg total) by mouth nightly. Other constipation Other orders - insulin glargine U-300 conc (TOUJEO MAX U-300 SOLOSTAR) 300 unit/mL (3 mL) insulin pen; Inject 66Units under the skin in the morning. At this time he has all his appts set up with the exception of his health assessment and treatment teacher, this he will need to set up but as he had his last A1c in Aug it likely would be best to wait until early to Mid November for this as this will give a better picture of his diabetes and for now his diabetes is at leaststable He does likely need to see a [...] medications SANDI Antoine 10/15/231818 documented in this encounterOhio Valley Surgical Hospital02-06-2024 Hospital Discharge instructionsAmbulatory Orders* Initiate Home Health Time Frame: 10/09/23, Location: Determined [...] doctor or pharmacist, without first calling the feature writer who implanted the stent. If you require [...] weight lifting, stair steppers, etc. until the feature writer approves these activities. Check with the feature writer on your first follow-up visit. CALL YOUR PHYSICIAN at [phone]: -If bleeding should occur from the catheter insertion site- apply pressure to the site then immediately call us. -Report any fever, redness, drainage, increased swelling, or firmness at the catheter insertion site. Some bruising or slight swelling may be present at the time of discharge. -Should arm or leg become cold, numb, white, or blue, contact the feature writer immediately. -IF you should experience episodes of [...] if you have recurrent angina. The attending feature writer or [facility] nurse clinician should provide you with specific instructions regarding activity, diet, medications, and further follow up for you. Follow the medication instructions provided on your discharge. If the dosages and instructions on this sheet differ from the dosage and instructions on the bottle, follow the instructions on the bottle. [facility] is not responsible for incorrect prescription information [...] education Provide education on high risk fall [facility] Work Phone: 1(482) 205-711301-22-2024 Miscellaneous Notes* Telephone Encounter - Joy Cueto - 09/24/2023 2:35 PM EST ----- Message from Gilles Dominguez PA-C sent at 09/22/2023 10:47 AM EST ----- Fu 1-2 months sp hospitalization * Telephone Encounter - PRASHANT Gamboa - 09/24/2023 2:35 PM EST Still admitted.PRASHANT Gamboa * Telephone Encounter - PRASHANT Gamboa - 09/24/2023 2:35 PM EST Still admitted.PRASHANT Gamboa * Telephone Encounter - Elizabeth Potter - 09/24/2023 2:35 PM EST PT STILL ADMITTED documented in this encounterOhio Valley Surgical Hospital01-22-2024 Telephone encounter Note* Telephone Encounter - Joy Cueto - 09/24/2023 2:35 PM EST ----- Message from Gilles Dominguez PA-C sent at 09/22/2023 10:47 AM EST ----- Fu 1-2 months sp hospitalization [facility]01-[facility] Telephone encounter Note* Telephone Encounter - AngiePRASHANT Matute - 09/24/2023 2:35 PM EST Still admitted.Angieparesh Denis PRASHANT [facility]01-22-2024 Telephone encounter Note* Telephone Encounter - PRASHANT Gamboa - 09/24/2023 2:35 PM EST Still admitted.Angieparesh Denis PRASHANT [facility]01-22-2024 Telephone encounter Note* Telephone Encounter - Elizabeth Potter - 09/24/2023 2:35 PM EST PT STILL ADMITTED [facility]01-17-[facility] History of Present illness Narrative* Yari Peter PA-C - 09/19/2023 1:00 PM EST [facility] [address] [place] [address] Patient: Tom Halefina Sex: male : 1955 Age: 67 y.o. PCP: Tom Paniagua Jr, DO 09/19/2023 Piter Alexiafina is here for a(n) initial consultation. Chief Complaint Patient presents with Back Pain HPI: Physical therapy August 2023 at [facility] finished in September 2023, now currently attends aquatic therapy Dr Nance, chiropractor, loosened it up some but not as beneficial as previous years Back Pain This is a chronic problem. Episode onset: May 2023. The problem occurs intermittently. The problem has been gradually worsening since onset. The pain is present in the lumbar spine. The qualityof the pain is described as aching, burning and cramping. Radiates to: right leg. Pain scale: pain ranges from 5- 8/10, varies. The pain is moderate. The pain is The same all the time. Exacerbated by:standing, walking, stairs. Stiffness is present: not too much Associated symptoms include leg pain (right leg), numbness (right leg, foot) and weakness (bilateral legs, pt almost fell, using wheelchair now). Pertinent negatives include no chest pain or fever. Treatments tried: ibuprofen, tylenol w ith moderate relief; heat with min relief. The effect of pain on patient's ADLS: Moderate Impairment. Past Medical History: Diagnosis Date Coronary artery disease Status post CABG Diabetes mellitus ([facility]) Gallstone Hyperlipidemia Hypertension Vitreous hemorrhage ([facility]) Past Surgical History: Procedure Laterality Date COLONOSCOPY [...] 60 min Stress: Stress Concern Present (04/17/2023) [employer] [place] of Occupational Health - Occupational Stress Questionnaire [...] 20 Ht 193 cm (6' 4 ) Wt117 kg (258 lb) BMI 31.40 kg/m Physical [...] during discussion, demonstrated appropriate cognitive reasoning and understandingof the medical condition by asking appropriate questions [...] Peter PA-C 09/19/23 1434 documented in this encounterOhio Valley Surgical Hospital01-11-2024 Miscellaneous Notes* Telephone Encounter - Gisselle Alfaro CMA - 09/13/2023 2:29 PM EST Pt called she wasn't able to come to dr dhaliwal, wanted to know if pt could get a lasix bc his legs are getting puffy again, pt stated you did look at them , also concerned about entresto they go back to the cardiogist the 17th pt hasn't taken Rx 3-4 weeks insurance chaged and cost to much * Telephone Encounter - Faith Seals - 09/13/2023 2:29 PM EST Please send to [facility]. Will let them know orders will be there. documented in this encounterOhio Valley Surgical Hospital01-11-2024 Telephone encounter Note* Telephone Encounter - Gisselle Alfaro CMA - 09/13/2023 2:29 PM EST Pt called she wasn't able to come to dr dhaliwal, wanted to know if pt could get a lasix bc his legs are getting puffy again, pt stated you did look at them , also concerned about entresto they go back to the cardiogist the 17th pt hasn't taken Rx 3-4 weeks insurance chaged and cost to much [facility]01-11-2024 Telephone encounter Note* Telephone Encounter - Faith Seals - 09/13/2023 2:29 PM EST Please send to [facility]. Will let them know orders will be there. Flypaper01-09-2024 History of Present illness Narrative* Tom Sully Siva, - 09/11/2023 12:40 PM EST IM PROGRESS NOTE Patient - Tom Khan Age - 67 y[facility] 1955 [id number] ASSESS[facility] & PLAN 1. Spinal stenosis of lumbar region without neurogenic claudication -patient with continued or worsened symptoms of spinal stenosis despite trial of physical therapy -due to his multiple psychiatric medications and medical comorbidities, is not a good candidate forpain medications -referral to pain clinic for possible [...] leg symptoms. At last visit, was noted tohave radicular pain radiating down his right leg with activity. He was limping and had restricted his activities. He underwent an MRI of his back which showed multilevel disc and facet disease, with severe spinal canal stenosis at L4-L5. -he was sent to physical therapy for evaluation and treatment. He has been attending regularly, andhe does not notice any improvement in his symptoms. He had an evaluation earlier today and his gaitwas unchanged. He is dragging his right leg [...] by mouth in the morning. 60 mg inmorning 30 at night., Disp: , Rfl: ENTRESTO [...] IN THE MORNING, Disp: , Rfl: omega 2-frd-ory-fish oil (Fish OiL) 300-1,000 mg capsule, Take [...] mg under the skin every 7 days.,Disp: 3 mL, Rfl: 11 psyllium husk (MetamuciL) [...] Testing No results found. Tom Paniagua DO., [facility]: [phone] [facility] History of Present illness Narrative* Etta Oakes CNP - 01/04/2023 8:29 PM EDT Attemped to call with chest xray results. No answer. Unable to leave a VM * Etta Oakes CNP - 01/04/2023 8:16 PM EDT Images from the original note were not included. Patient Name: [facility] Location: Tom Khan [address] [place] [address] Date Of : Date Of Visit: 1955 01/04/2023 MRN# Provider: [id number] Etta Oakes CNP Chief Complaint Patient presents [...] No major cough. He just ate dinner [employer]ATING [employer]PER[employer], FSBS are running high per him. requests [...] medications if they develop any signs of anallergic reaction. Educated patient and/or guardian about signs and symptoms that would warrant further immediate evaluation. Recommended that they should return to urgent care, make an appointment with their family physician, or go to the emergency room if symptoms persist or get acutely worse. Recommended follow upwithin the next week with their PCP or [...] was concerned because they were walking around [place] today and he states that he was [...] canal and external ear normal. Mouth/Throat: Lips: Dwight. Mouth: Mucous membranes are moist. No lacerations or angioedema. Tongue: No lesions. Tongue does not deviate from midline. Palate: No mass and lesions. Pharynx: Oropharynx is clear. Uvula midline. Comments: Halitosis is present Cardiovascular: Rate and Rhythm: Normal rate and regular rhythm. Pulmonary: Effort: Pulmonary effort is normal. Breath sounds: Normal breath sounds. No stridor, decreased air movement or transmitted upper airwaysounds. Abdominal: General: Abdomen is protuberant. Bowel sounds [...] total) by mouth 2 (two) times a day. LORazepam (ATIVAN) 0.5 MG tablet Take 1 (one) tablet (0.5 mg total) by mouth every 6 (six) hours asneeded for anxiety Bid . nystatin (MYCOSTATIN) 100,000 unit/mL suspension Take 5 mL (500,000 Units total) by mouth 4 (four) times a day for 10 days . 200 mL 0 traZODone (DESYREL) 100 MG tablet Take 1 (one) tablet (100 mg total) by mouth nightly as needed forsleep . No current facility-administered medications for this visit. There are no Patient Instructions on file for this visit. documented in this [id number] Evaluation note* Encounter Date Diagnosis Assessment Notes Treatment Notes Treatment Clinical Notes Jul, Obstructive sleep apnea (ICD-10 - G47.33) He has been using and benefiting from treatment over the long-term. Although unable to get a download today, he has had excellent compliance and good control in the past. He has registered his antiquated machine for recall, but has not heard anything back. He is interested in getting a new machine,and we will order auto CPAP minimum 8 maximum 16. Anticipate return for 31 to 90-day visit as required by insurance Jul,sychophysiologic insomnia (ICD-10 - F51.04)Encouraged continued efforts at good sleep hygiene. His ongoing depression likely contributes to ins omnia as well. He continues with management for these problems through his psychiatrist Jul,epression, major, recurrent, moderate (ICD-10 - F33.1) [employer] Other [id number] NotePROCEDURE: CT CSPINE WO CON COMPARISON: None. [...] Electronically authenticated by: LULA RODRIGUEZ Date: 2021-07-22 09:36[facility]09-17-2020 History of Present illness Narrative* Babs Ornelas [...] 20, 2020 1:07 PM [facility] History general Narrative - Reported* Type Description Date Medical History 02/28/2012 Blood work CBC, CMP, Liver profile Medical Ceolibt61/07/12 Blood work Lipid, CMP, CBC, T4, TSH, HGA1C (6.2), PSA (1.07)Medical HistoryCT Paranasal Sinses without contrast 03-12-12 FRMedical HistoryCT Abdomen and Pelvis without contrast 03-12-12 [facility] [place] hypertensionMedical Historychronic depressionMedical Historydiabetes mallitus Medical HistoryOSASurgical [id number] HistoryENT surgery due to sleep apnea.2007Surgical HistoryLeft knee fmwmwyinhjj19/2012Surgical History dental implantsSurgical Historyknee replacement rightHospitalization HistorySEE ABOVE [facility] [employer] Other Evaluation noteNo assessment information available [facility] Work Phone: Evaluation noteNo InformationNortBucktail Medical Center [employer] Other Evaluation note* Diagnosis Cough, unspecified type- Primary [facility] Diagnosis Onset Date Resolution Status Cauda equina compression acuteImpaired mobility and activities of daily livingacutePost-operative pain acuteS/P lumbar laminectomyacuteSevere major depressionacuteSpinal stenosis at L4-L5 levelacuteType II diabetes mellitusacuteCAD (coronary artery disease) chronicGeneralized anxiety disorderchronicHyperlipidemiachronicHypertension chronicMajor psychotic depression, recurrentchronic [facility] Work Phone: Evaluation note* Diagnosis Onset Date Resolution Status Cauda equina compression acuteImpaired mobility and activities of daily livingacutePost-operative pain acuteS/P lumbar laminectomyacuteSevere major depressionacuteSpinal stenosis at L4-L5 levelacuteType II diabetes mellitusacuteCAD (coronary artery disease) chronicGeneralized anxiety disorderchronicHyperlipidemiachronicHypertension chronicMajor psychotic depression, recurrentchronicHistory of coronary artery bypass graft x 3acuteSpinal stenosis at L4-L5 levelacuteST elevation myocardial infarction (STEMI) of inferior wallacuteType II diabetes mellitusacuteCAD (coronary artery disease)chronicHyperlipidemiachronicHypertensionchronic [facility] Work Phone: Evaluation note* Diagnosis CAD, multiple vessel- Primary Primary hypertension Unspecified essential hypertension Mixed hyperlipidemia Ischemic cardiomyopathy Other specified forms of chronic ischemic heart disease Type 2 diabetes mellitus without complication, with long-term current use of insulin (CMS/HCC) Obesity (BMI 30-39.9) Major psychotic depression, recurrent (CMS/HCC) Moderate episode of recurrent major depressive disorder (CMS/HCC) documented in this encounter [facility] Work Phone: Evaluation note* Diagnosis CAD, multiple vessel Obesity (BMI 30-39.9) Primary hypertension Unspecified essential hypertension Type 2 diabetes mellitus without complication, with long-term current use of insulin (Multi) Depression, unspecified depression type Old RI (myocardial infarction) Old myocardial infarction History of PTCA Postsurgical percutaneous transluminal coronary angioplasty status Anxiety Anxiety state, unspecified Mixed hyperlipidemia documented in this encounter [facility] Work Phone: Evaluation note* Diagnosis Pre-op exam- Primary Preoperative examination, unspecified Primary osteoarthritis of right knee Primary localized osteoarthrosis, lower leg Essential hypertension Unspecified essential hypertension S/P CABG (coronary artery bypass graft) Postsurgical aortocoronary bypass status Unspecified sleep apnea Prediabetes Other abnormal glucose Atherosclerosis of g[place] coronary artery of g[place]ana heart without angina pectoris Vocal cord granuloma Other diseases of vocal cords Hyperlipidemia, unspecified hyperlipidemia type Esophageal stricture Stricture and stenosis of esophagus Depression, unspecified depression type Nuclear senile cataract, unspecified laterality [facility] Diagnosis Pre-op exam- Primary Preoperative examination, unspecified Primary osteoarthritis of right knee Primary localized osteoarthrosis, lower leg Essential hypertension Unspecified essential hypertension S/P CABG (coronary artery bypass graft) Postsurgical aortocoronary bypass status Unspecified sleep apnea Prediabetes Other abnormal glucose Atherosclerosis of [place] coronary artery of [place] heart without angina pectoris Vocal cord granuloma Other diseases of vocal cords Hyperlipidemia, unspecified hyperlipidemia type Esophageal stricture Stricture and stenosis of esophagus Depression, unspecified depression type Primary osteoarthritis of right knee Primary localized osteoarthrosis, lower leg [facility] Diagnosis CAD, multiple vessel- Primary [...] Anxiety state, unspecified documented in this encounter [facility] Work Phone: Evaluation note* Diagnosis Diabetic polyneuropathy associated with type 2 diabetes mellitus (CMS/HCC)- Primary Corns and callosities [facility] Diagnosis Diabetic polyneuropathy associated with type 2 diabetes mellitus (CMS/HCC)- Primary Ulcer of right foot with fat layer exposed (CMS/HCC) Cellulitis of right foot [facility] Diagnosis Diabetic polyneuropathy associated with type 2 diabetes mellitus (CMS/HCC)- Primary Corns and callosities Dystrophic nail Other specified disease of nail Dermatophytosis of nail [facility]* Diagnosis Bilateral leg edema- Primary Edema Venous stasis dermatitis Varicose veins of lower extremities with inflammation [facility] Diagnosis Corns and callosities- Primary Diabetic polyneuropathy associated with type 2 diabetes mellitus (CMS/HCC) Dermatophytosis of nail Dystrophic nail Other specified disease of nail [facility]* Diagnosis Acute pain of right knee- Primary History of bilateral knee replacement Traumatic hematoma of right knee, initial encounter [facility]* Diagnosis Acute pain of right knee- Primary Traumatic hematoma of right knee, subsequent encounter Left hip pain Pain in joint, pelvic region and thigh Stiffness of hip joint, unspecified laterality Gait difficulty Abnormality of gait documented [facility]* Diagnosis Essential hypertension- Primary Unspecified essential hypertension Mixed hyperlipidemia Chronic diastolic CHF (congestive heart failure) ([facility]) Type 2 diabetes mellitus with diabetic peripheral angiopathy without gangrene, with long-term current use of insulin ([facility]) [facility] Diagnosis Chronic diastolic CHF (congestive heart failure) ([facility]) [facility]* Diagnosis Type 2 diabetes mellitus with diabetic peripheral angiopathy without gangrene, with long-term current use of insulin ([facility])- Primary [facility]* Diagnosis Type 2 diabetes mellitus with diabetic peripheral angiopathy without gangrene, with long-term current use of insulin ([facility])- Primary Primary hypertension Unspecified essential hypertension Chronic diastolic CHF (congestive heart failure) ([facility]) Rotator cuff tear arthropathy of right shoulder documented [facility]* Diagnosis On statin therapy- Primary [facility]* Diagnosis Type 2 diabetes mellitus with diabetic peripheral angiopathy without gangrene, with long-term current use of insulin ([facility])- Primary documented [facility]* Diagnosis Spinal stenosis of lumbar region without neurogenic claudication- Primary Constipation, unspecified constipation type documented [facility]* Diagnosis Type 2 diabetes mellitus with diabetic peripheral angiopathy without gangrene, with long-term current use of insulin ([facility]) [facility]* Diagnosis Type 2 diabetes mellitus with diabetic peripheral angiopathy without gangrene, with long-term current use of insulin ([facility])- Primary Mixed hyperlipidemia [facility]* Diagnosis Spinal stenosis of lumbar region without neurogenic claudication [facility]* Diagnosis History of urinary retention- Primary Urinary retention Unspecified retention of urine [facility]* Diagnosis Status post lumbar laminectomy- Primary Chronic diastolic CHF (congestive heart failure) ([facility]) ST elevation myocardial infarction (STEMI) of inferior wall ([facility]) Acute myocardial infarction of other inferior wall, episode of care unspecified Type 2 diabetes mellitus with diabetic peripheral angiopathy without gangrene, with long-term current use of insulin ([facility]) Primary hypertension Unspecified essential hypertension History of urinary retention Other constipation [facility]* Diagnosis Numbness in both legs- Primary Disturbance of skin sensation Lumbar pain Lumbago Lumbar pain Lumbago documented [facility]* Diagnosis Symptomatic cholelithiasis- Primary Abdominal pain, unspecified abdominal location Constipation, unspecified constipation type Primary hypertension Unspecified essential hypertension Type 2 diabetes mellitus with diabetic peripheral angiopathy without gangrene, with long-term current use of insulin ([facility]) Symptomatic cholelithiasis documented [facility]* Diagnosis Biliary colic- Primary Calculus of gallbladder without mention of cholecystitis or obstruction documented [facility]* Diagnosis Numbness in both legs Disturbance of skin sensation History of urinary retention documented [facility]* Diagnosis Gallstones- Primary Calculus of gallbladder without mention of cholecystitis or obstruction Gallstones- Primary Calculus of gallbladder without mention of cholecystitis or obstruction Gallstones Calculus of gallbladder without mention of cholecystitis or obstruction documented [facility]* Diagnosis Type 2 diabetes mellitus with diabetic peripheral angiopathy without gangrene, with long-term current use of insulin ([facility])- Primary OSEI (dyspnea on exertion) Other dyspnea and respiratory abnormality Bilateral lower extremity edema RUQ abdominal pain Abdominal pain, right upper quadrant Tendinopathy of left rotator cuff Mixed hyperlipidemia Screening PSA (prostate specific antigen) Special screening for malignant neoplasm of prostate Primary hypertension Unspecified essential hypertension CAD, multiple vessel ST elevation myocardial infarction (STEMI) of inferior wall ([facility]) Acute myocardial infarction of other inferior wall, episode of care unspecified Moderate episode of recurrent major depressive disorder ([facility]) Bilateral lower extremity edema RUQ abdominal pain Abdominal pain, right upper quadrant OSEI (dyspnea on exertion) Other dyspnea and respiratory abnormality documented [facility]* Diagnosis Type 2 diabetes mellitus with diabetic peripheral angiopathy without gangrene, with long-term current use of insulin ([facility])- Primary documented [facility]* Diagnosis Type 2 diabetes mellitus with diabetic peripheral angiopathy without gangrene, with long-term current use of insulin ([facility])- Primary documented [facility]* Diagnosis Type 2 diabetes mellitus with diabetic peripheral angiopathy without gangrene, with long-term current use of insulin ([facility]) documented [facility]* Diagnosis Suspected cauda equina syndrome- Primary Neck pain Cervicalgia Bilateral low back pain with sciatica, sciatica laterality unspecified, unspecified chronicity Incontinence of feces, unspecified fecal incontinence type B12 deficiency documented [facility]* Diagnosis Gallstones- Primary Calculus of gallbladder without mention of cholecystitis or obstruction Type 2 diabetes mellitus with diabetic peripheral angiopathy without gangrene, with long-term current use of insulin ([facility]) Gallstones Calculus of gallbladder without mention of cholecystitis or obstruction documented [facility]* Diagnosis Type 2 diabetes mellitus with diabetic peripheral angiopathy without gangrene, with long-term current use of insulin ([facility])- Primary documented in [facility]* Diagnosis Constipation, unspecified constipation type- Primary Abdominal pain, unspecified abdominal location documented [facility]* Diagnosis Type 2 diabetes mellitus with diabetic peripheral angiopathy without gangrene, with long-term current use of insulin ([facility])- Primary documented in [facility]* Diagnosis Constipation, unspecified constipation type- Primary Left lateral abdominal pain Antiplatelet or antithrombotic long-term use Encounter for long-term (current) use of antiplatelets/antithrombotics CAD, multiple vessel documented [facility]* Diagnosis Acute pain of right shoulder- Primary Acute pain of left shoulder Arthritis of left shoulder region Arthritis of left acromioclavicular joint Arthritis of right acromioclavicular joint documented [facility]* Diagnosis Type 2 diabetes mellitus with diabetic peripheral angiopathy without gangrene, with long-term current use of insulin ([facility]) documented [facility]* Diagnosis Other constipation- Primary Antiplatelet or antithrombotic long-term use Encounter for long-term (current) use of antiplatelets/antithrombotics History of colon polyps documented [facility]* Diagnosis Acute pain of right shoulder- Primary Rotator cuff tear arthropathy of right shoulder documented [facility]* Diagnosis Primary hypertension- Primary Unspecified essential hypertension Type 2 diabetes mellitus with diabetic peripheral angiopathy without gangrene, with long-term current use of insulin ([facility]) Chronic diastolic CHF (congestive heart failure) ([facility]) CAD, multiple vessel documented [facility]* Diagnosis Diabetic polyneuropathy associated with type 2 diabetes mellitus ([facility])- Primary Dermatophytosis of nail Dystrophic nail Other specified disease of nail documented [facility]* Diagnosis Urinary retention- Primary Unspecified retention of urine documented in [facility]* Diagnosis Urinary retention- Primary Unspecified retention of urine Type 2 diabetes mellitus with diabetic peripheral angiopathy without gangrene, with long-term current use of insulin ([facility])- Primary documented in [facility] encounter [facility]* Diagnosis Urinary retention- Primary Unspecified retention of urine Gait disturbance- Primary Abnormality of gait Moderate episode of recurrent major depressive disorder ([facility]) documented [facility]* Diagnosis Ulcer of left foot with fat layer exposed ([facility])- Primary Diabetic polyneuropathy associated with type 2 diabetes mellitus ([facility]) Dermatophytosis of nail Contusion of lesser toe of left foot without damage to nail, initial encounter documented [facility]* Diagnosis Diabetic polyneuropathy associated with type 2 diabetes mellitus (HCC)- Primary Ulcer of left foot with fat layer exposed ([facility]) Hammer toe of left foot documented in [facility]* Diagnosis Arthritis of right shoulder- Primary Pre-op exam Type 2 diabetes mellitus with diabetic peripheral angiopathy without gangrene, with long-term current use of insulin ([facility]) Mixed hyperlipidemia Mixed hyperlipidemia Primary hypertension Unspecified essential hypertension History of PTCA Postsurgical percutaneous transluminal coronary angioplasty status Constipation, unspecified constipation type Depression, unspecified depression type CANDIDA (generalized anxiety disorder) Generalized anxiety disorder Severe episode of recurrent major depressive disorder, without psychotic features ([facility]) Obsessive-compulsive disorder, unspecified type documented in this encounter [facility]* Diagnosis Ulcer of right foot with fat layer exposed ([facility])- Primary Contusion of lesser toe of left foot without damage to nail, subsequent encounter Dermatophytosis of nail Dystrophic nail Other specified disease of nail Corns and callosities Diabetic polyneuropathy associated with type 2 diabetes mellitus ([facility]) documented in this encounter [facility]* Diagnosis CAD, multiple vessel- Primary Primary hypertension Unspecified essential hypertension Mixed hyperlipidemia Ischemic cardiomyopathy Other specified forms of chronic ischemic heart disease Type 2 diabetes mellitus without complication, with long-term current use of insulin Obesity (BMI 30-39.9) Major psychotic depression, recurrent (Multi) Moderate episode of recurrent major depressive disorder ASHD (arteriosclerotic heart disease) Coronary atherosclerosis of unspecified type of vessel, g[place] or graft History of coronary artery bypass graft Postsurgical aortocoronary bypass status History of PTCA Postsurgical percutaneous transluminal coronary angioplasty status Shortness of breath Type 2 diabetes mellitus without complication, with long-term current use of insulin Anxiety Anxiety state, unspecified Never smoked cigarettes BMI 35.0-35.9,adult Mixed hyperlipidemia documented in this encounter [facility] Work Phone: Evaluation note* Diagnosis Urinary retention- Primary Unspecified retention of urine Medicare annual wellness visit, subsequent- Primary Type 2 diabetes mellitus with diabetic peripheral angiopathy without gangrene, with long-term current use of insulin ([facility]) Primary hypertension Unspecified essential hypertension 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 Obesity, morbid ([facility]) Morbid obesity CAD, multiple vessel Mixed hyperlipidemia Moderate episode of recurrent major depressive disorder ([facility]) Gait disturbance Abnormality of gait Incontinence of feces, unspecified fecal incontinence type [facility] Diagnosis Diabetic polyneuropathy associated with type 2 diabetes mellitus (HCC)- Primary Corns and callosities documented in this encounter [facility]* Diagnosis Urinary retention- Primary Unspecified retention of urine Encounter for preadmission testing- Primary documented in [facility] Diagnosis Urinary retention- Primary Unspecified retention of urine Type 2 diabetes mellitus with diabetic peripheral angiopathy without gangrene, with long-term current use of insulin ([facility]) [facility] Diagnosis Urinary retention- Primary Unspecified retention of urine Numbness in both legs- Primary Disturbance of skin sensation Status post lumbar spinal fusion Arthrodesis status Numbness in both legs Disturbance of skin sensation Status post lumbar spinal fusion Arthrodesis status documented [facility] Diagnosis Pre-op exam- Primary Preoperative examination, unspecified Primary osteoarthritis of right knee Primary localized osteoarthrosis, lower leg Essential hypertension Unspecified essential hypertension S/P CABG (coronary artery bypass graft) Postsurgical aortocoronary bypass status Unspecified sleep apnea Prediabetes Other abnormal glucose Atherosclerosis of gulkana coronary artery of gulkana heart without angina pectoris Vocal cord granuloma Other diseases of vocal cords Hyperlipidemia, unspecified hyperlipidemia type Esophageal stricture Stricture and stenosis of esophagus Depression, unspecified depression type Memory loss- Primary Cognitive impairment, mild, so stated Mild cognitive impairment, so stated Obsessive-compulsive disorder, unspecified type Recurrent major depressive disorder, remission status unspecified CANDIDA (generalized anxiety disorder) Generalized anxiety disorder MCI (mild cognitive impairment) Mild cognitive impairment, so stated [facility] Hammer toe of left foot- Primary Corns and callosities Diabetic polyneuropathy associated with type 2 diabetes mellitus (HCC) Dystrophic nail Other specified disease of nail Dermatophytosis of nail [facility] Urinary retention- Primary Unspecified retention of urine Other urinary incontinence- Primary Cauda equina compression ([facility]) documented in [facility] Diagnosis Urinary retention- Primary Unspecified retention of urine Type 2 diabetes mellitus with diabetic peripheral angiopathy without gangrene, with long-term current use of insulin ([facility])- Primary Burning tongue Glossodynia Primary hypertension Unspecified essential hypertension Obesity, morbid ([facility]) Morbid obesity Mixed hyperlipidemia CAD, multiple vessel Obsessive-compulsive disorder, unspecified type documented in this encounter [facility] illness Narrative* Patient [...] months or earlier if the need arise [facility] 250 DO Work Phone: History of Present [...] has a past medical history of Acute RI ([facility]) (10/15/2023), Angina pectoris ([facility]), Anxiety, Arthritis, Autonomic neuropathy due to type 2 diabetes mellitus ([facility]) (06/01/2022), Back pain, CAD, multiple vessel (08/30/2023), Cardiomegaly, Cataract, Cataract, nuclear sclerotic senile, right (08/14/2018), CHF (congestive heart failure) ([facility]), Chronic diastolic CHF (congestive heart failure) ([facility]) (02/05/2023), Complaint of paresthesia (11/16/2022), Constipation (10/15/2023), Coronary arteriosclerosis (06/01/2022), Coronary artery disease, COVID-19, Dental disease, Depression, Deviated septum, Diabetes mellitus ([facility]) (08/30/2023), Diabetes mellitus type 2, controlled ([facility]), Difficult intravenous access, OSEI (dyspnea on exertion), Esophageal reflux (08/30/2023), Esophageal stricture, Fatigue (06/28/2011), Fractures, Gallstone, Gallstones (04/03/2024), GERD (gastroesophageal reflux disease), H/O esophagogastroduodenoscopy, Heart attack ([facility]) (10/06/2023), Hiatal hernia, Hyperlipidemia, Hypertension, Hyponatremia, Incontinence of bowel, Incontinence of urine, 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, Lower extremityweakness (09/20/2023), MCI (mild cognitive impairment) (02/25/2021), Mild cognitive impairment, Mixed anxiety and depressive disorder (09/07/2017), Mixed hyperlipidemia (06/28/2011), Moderate episodeof recurrent major depressive disorder ([facility]) (12/25/2022), Obesity, Obesity (BMI 30-39.9) (08/30/2023), Obesity, [...] elevation myocardial infarction (STEMI) of inferior wall ([facility]) (10/15/2023), Type 2 diabetes mellitus with diabetic peripheral angiopathy withoutgangrene, with long-term current use of insulin ([facility]) (10/13/2019), Urinary retention, Visual impairment, Vitamin D deficiency, Vitreous hemorrhage ([facility]), and Vocal cord granuloma. Presentingfor follow-up visit. 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 He has a past medical history of Acute RI ([facility]) (10/15/2023), Angina pectoris ([facility]), Anxiety, Arthritis, Autonomic neuropathy due to type 2 diabetes mellitus ([facility]) (06/01/2022), Back pain, CAD, multiple vessel (08/30/2023), Cardiomegaly, Cataract, Cataract, nuclear sclerotic senile, right (08/14/2018), CHF (congestive heart failure) ([facility]), Chronic diastolic CHF (congestive heart failure) ([facility]) (02/05/2023), Complaint of paresthesia (11/16/2022), Constipation (10/15/2023), Coronary arteriosclerosis (06/01/2022), Coronary artery disease, COVID-19, Dental disease, Depression,Deviated septum, Diabetes mellitus ([facility]) (08/30/2023), Diabetes mellitus type 2, controlled ([facility]), Difficult intravenous access, OSEI (dyspnea on exertion), Esophageal reflux (08/30/2023), Esophageal stricture, Fatigue (06/28/2011), Fractures, Gallstone, Gallstones (04/03/2024), GERD (gastroesophageal reflux disease), H/O esophagogastroduodenoscopy, Heart attack ([facility]) (10/06/2023), Hiatal hernia, Hyperlipidemia, Hypertension, Hyponatremia, Incontinence of bowel, Incontinence of urine, 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, Lower extremity weakness (09/20/2023), MCI (mild cognitive impairment) (02/25/2021), Mild cognitive impairment, Mixed anxiety and depressive disorder (09/07/2017), Mixed hyperlipidemia (06/28/2011), Moderate episode of recurrent major depressive d isorder ([facility]) (12/25/2022), Obesity, Obesity (BMI 30-39.9) (08/30/2023), Obesity, Class II, JVO64-69.9 (04/13/2020), Obsessive compulsive disorder, Obsessive-compulsive disorder (11/07/2018), Obstructive sleep apnea syndrome (06/01/2022), Peripheral neuropathy, Pneumonia, PONV (postoperative nausea and vomiting), Primary hypertension (06/28/2011), Primary osteoarthritis of right knee (06/01/2022), Pseudophakia (05/05/2011), Pulmonary vascular congestion, Retinal detachment (06/01/2022), S/P total knee arthroplasty, right (04/12/2020), Salmonella, Sleep apnea, Spinal stenosis at L4-L5 level (10/15/2023), ST elevation myocardial infarction (STEMI) of inferior wall ([facility]) (10/15/2023),Type 2 diabetes mellitus with diabetic peripheral angiopathy without gangrene, with long-term current use of insulin ([facility]) (10/13/2019), Urinary retention, Visual impairment, Vitamin D deficiency, Vitreous hemorrhage ([facility]), and Vocal cord granuloma. He has a [...] 09/21/2023 Performed by Bobbi Steen MD at [facility] POSTERIOR LAMINECTOMY FUSION LUMBAR SINGLE LEVEL / L4/5 N/A 09/21/2023 Performed by Bobbi Steen MD at [facility] REPLACEMENT TOTAL KNEE Bilateral ROTATOR CUFF [...] SL tablet, , Disp: , Rfl: omega 8-yuw-uij-fish oil (Fish OiL) 300-1,000 mg capsule, Take [...] note is dictated with the use of [employer], a computer voice recognition software. Quite often unanticipated grammatical, syntax, homophones, and other interpretive errors are inadvertently transcribed by the computer software. Please disregard these errors and please excuse any errors that haveescaped final proofreading. Tim Ibrahim MD, MPH Gastroenterology & Hepatology Packaging Sales Consultant [facility] [address], [address] [place] [address] PH: [phone] documented in this encounter[facility] Discharge instructions Additional Instructions Call [facility] tomorrow for follow-up. Also follow-up with a primary care provider or return for emergent concerns. No changes are made any home medications. Prescriptions are provided.[facility] Work Phone: InstructionsNot on filedocumented in this [...] be sent through Care Everywhere. * Gallstones (Thai) documented in this encounterProMedica Health SystemInstructionsNot on file documented in this encounterProMedica Health SystemInstructionsNot on file documented in this encounterProMedica Health SystemInstructionsNot on file documented in this encounterProMedioh Health SystemInstructionsNot on file documented in this encounterProMedioh Health SystemInstructionsNot on file documented in this encounterProMedioh Health SystemInstructionsNot on file documented in this encounterProMedioh Health SystemInstructionsNot on file documented in this encounterProMedioh Health SystemInstructionsNot on file documented in this encounterProMer[facility] SystemInstructionsNot on file documented in this encounterProMercy Health [facility] SystemReason for referral (narrative)* Consultation (Routine) - AuthorizedSpecialtyDiagnoses / Procedures Referred By ContactReferred To ContactCardiology Diagnoses CAD, multiple vessel Procedures Follow Up In Cardiology Tesha Gavin APRN-PROFESSOR OF SOCIOLOGY [address] [facility], [address] [address] Gita Watts DO [address] [place] [address], [address] [address] Referral IDStatusReasonStart DateExpiration DateVisits RequestedVisits [id number]/14/20242/ [facility] Work Phone: Reason for referral (narrative)* Consultation (Routine) - AuthorizedSpecialtyDiagnoses / ProceduresReferred By Contact Referred To ContactCardiology Diagnoses CAD, multiple vessel Procedures Follow Up In Cardiology Gita Watts DO [facility] [facility] [address], [address] [address] Gita Watts DO [address] [facility], [address] [address] Referral IDStatusReasonStart DateExpiration DateVisits RequestedVisits [id number]/21/20245/ [facility] Work Phone: Reason for referral (narrative)* Consultation (Routine) - Pending ReviewSpecialtyDiagnoses / ProceduresReferred By Contact Referred To ContactOrthopedic Surgery Diagnoses Rotator cuff tear arthropathy of right shoulder Kayden Morse MD [address] [address] Axel Alexander MD [address] [place] [address] Referral IDStatusReasonStart DateExpiration DateVisits RequestedVisits [id number] Review Specialty Services Required / [facility] HospitalReason [facility] (narrative)* Consultation (Routine) - Pending ReviewSpecialtyDiagnoses / ProceduresReferred By ContactReferred To ContactPain Medicine Diagnoses Spinal stenosis of lumbar region without neurogenic claudication Tom Paniagua DO [address] [place] [address] Gita Sutton MD [address] [place] [address] Referral IDStatusReasonStart DateExpiration DateVisits RequestedVisits [id number] Review/ [facility] HospitalRemid [facility] for [facility] (narrative)* Consultation (Routine) - Pending ReviewSpecialtyDiagnoses / ProceduresReferred By ContactReferred To ContactUrology Diagnoses Numbness in both legs Bobbi Steen MD [address] [address] [facility] [address] [place] [address] Referral IDStatusReasonStart DateExpiration DateVisits RequestedVisits [id number] Review Specialty Services Required * Rehabilitation - Outpatient (Routine) - ClosedSpecialtyDiagnoses / Procedures Referred By ContactReferred To ContactRehabilitation Diagnoses Lumbar pain Bobbi Steen MD [address] [place] [address] [address] [place] [address] [facility] [address] [place] [phone] Referral IDStatusReasonStart DateExpiration DateVisits RequestedVisits [id number]/29/20242/28/202511 [facility] HospitalReason for referral (narrative)* Consultation (Routine) - Pending ReviewSpecialtyDiagnoses / ProceduresReferred By ContactReferred To ContactGeneral Surgery Diagnoses Symptomatic cholelithiasis Leeann Castillo, TERRY [address] [facility] [address] [place] [address] Zz Do Not Use -Bpp Gen Surg Sferra Wilmar [address] [facility] [address] [place] [address] Referral IDStatusReasonStart DateExpiration DateVisits RequestedVisits [id number] Review Specialty Services Required [facility] HospitalRetiti for referral (narrative)* Consultation (Routine) - Pending ReviewSpecialtyDiagnoses / ProceduresReferred By ContactReferred To ContactEndocrinology, Diabetes & Metabolism Diagnoses Type 2 diabetes mellitus with diabetic peripheral angiopathy without gangrene, with long-term current use of insulin ([facility]) Alea Mckenzie MD [address] [facility] [place] [address] [facility] [address] [place] [address] Referral IDStatusReD.[facility]. [facility] DateExpiration DateVisits RequestedVisits [id number] Review Specialty Services Required / [facility] for visit Narrative* Consultation (Routine) - Pending ReviewSpecialtyDiagnoses / ProceduresReferred By ContactReferred To ContactEndocrinology, Diabetes & Metabolism Diagnoses Type 2 diabetes mellitus with diabetic peripheral angiopathy without gangrene, with long-term current use of insulin ([facility]) Alea Mckenzie MD [address] [facility] [place] [address] Phone: tel: fax: [facility] - [facility] [address] [place] [address] Phone: tel: fax: Referral IDStausCarilion Giles Memorial Hospital DateExpiration DateVisits RequestedVisits [id number] Review Specialty Services Required [facility] Summary Purpose Family History No Family History Records Found Relationship Condition Age at Onset Recorded Date/T vicente Not Specified Hyperlipidemia Unknown HypertensionUnknown Unknown Family Member Name Dates Details FH: CABG (coronary artery by pass surgery): Father(V17.3, Z82.49) Status:ActiveFamily history of congestive heart failure: Father(V17.49, Z82.49) Status:ActiveFamily history of hypertension: Mother(V17.49, Z82.49) Status:ActiveStroke syndrome: Mother Status:Active Unknown Family Member Name Dates Details FH: CABG (coronary artery by pass surgery): Father(V17.3, Z82.49) Status:ActiveFamily history of congestive heart failure: Father(V17.49, Z82.49) Status:ActiveFamily history of hypertension: Mother(V17.49, Z82.49) Status:ActiveStroke syndrome: Mother Status:Active Relationship Condition Age at Onset Recorded Date/T vicente father Congestive heart failure Unknown DeceasedUnknownmotherDeceasedUnknown Advance Directives No Advanced Directives Records Found Advance Directive Response Recorded Date/ Time Advance Directives No July 04, 2022 1:15pm Advance Directive Response Recorded Date/ Time Advance Directives No July 04, 2022 12:15pm TypeDate RecordedPatient RepresentativeExplanationAdvance Directive(s)04/12/2020 7:26 AMDate ActivatedDate InactivatedComments11/08/2018 10:10 AM11/13/2018 7:35 PM TypeDate RecordedPatient RepresentativeExplanationDurable Power of Business Development Consultant 08/08/2024 3:27 PMDate ActivatedDate InactivatedComments09/20/2023 6:01 AM 09/26/2023 7:04 PMDate ActivatedDate InactivatedComments09/20/2023 6:01 AM 09/26/2023 7:04 PMTypeDate RecordedPatient RepresentativeExplanationDurable Power of Zrkevhod72/6/2024 3:27 PMCode StatusDate ActivatedDate InactivatedComments Full Code09/20/2023 6:01 AM09/26/2023 7:04 PMCode StatusDate ActivatedDate InactivatedCommentsFull Code09/20/2023 6:01 AM09/26/2023 7:04 PM Advance Directive Response Recorded Date/ Time Advance Directives Yes August 05, 2024 2:00pm TypeDate RecordedPatient RepresentativeExplanationAdvance Directive(s)04/12/2020 7:26 AM Chief Complaint and Reason for Visit Chief [...] 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 Reason for Referral SpecialtyDiagnoses / ProceduresReferred By ContactReferred To Contact Rehabilitation Diagnoses Tendinopathy of left rotator cuff Leeann Castillo APRN-CNP [address] [facility] [address] [place] [address] Referral IDStatusReasonStart DateExpiration DateVisits RequestedVisits [id number] Review Specialty Services Required /[id number] / ProceduresReferred By ContactReferred To Contact Diagnoses Bilateral lower extremity edema Procedures Vas venous duplex lwr bilateral Leeann Castillo APRN-CNP [address] [facility] [address] [place], [place] [id number] Referral IDStatusReasonStart DateExpiration DateVisits RequestedVisits [id number] Review/[id number] / ProceduresReferred By ContactReferred To Contact Diagnoses Numbness in both legs Procedures Measure post void residual Ashley Rodriguez PA [address] [place] [address] Referral IDStatusReasonStart DateExpiration DateVisits RequestedVisits [id number] [id number] / ProceduresReferred By ContactReferred To ContactRadiology Diagnoses Biliary colic Procedures NM hepatobiliary system imaging with pharmacologic agent Leeann Castillo, TECHNOLOGY APPLICATIONS TEACHER-PROFESSOR OF SOCIOLOGY [address] [facility] [address] [place] [address] [facility] [address] [place] [address] Phone: [phone] Referral IDStatusReasonStart DateExpiration DateVisits RequestedVisits [id number]/22/[id number] / Procedures Referred By ContactReferred To Contact Diagnoses History of urinary retention Procedures Measure post void residual Nathan Blankenship MD [address] [place] [address] Referral IDStatusReasonStart DateExpiration DateVisits RequestedVisits [id number] Review/ Additional Source Comments (unrecognized sect ion and [...] section and content) DATE CREATED AUTHOR 02/26/2018 [facility] DATE CREATED AUTHOR AUTHOR'S ORGANIZ ATION 02/26/2018 [facility] DATE CREATED AUTHOR AUTHOR'S ORGANIZ ATION 11/14/2018 [facility] DATE CREATED AUTHOR AUTHOR'S ORGANIZ ATION 01/12/2021 [facility] DATE CREATED AUTHOR AUTHOR'S ORGANIZ ATION 11/25/2021 [facility] DATE CREATED AUTHOR AUTHOR'S ORGANIZ ATION 12/11/2021 [facility] DATE CREATED AUTHOR AUTHOR'S ORGANIZ ATION 03/23/2022 [facility] DATE CREATED AUTHOR AUTHOR'S ORGANIZ ATION 04/07/2022 [facility] DATE CREATED AUTHOR AUTHOR'S ORGANIZ ATION 01/09/2023 [facility] DATE CREATED AUTHOR AUTHOR'S ORGANIZ ATION 03/16/2023 [facility] DATE CREATED AUTHOR AUTHOR'S ORGANIZ ATION 03/16/2023 [facility] DATE CREATED AUTHOR AUTHOR'S ORGANIZ ATION 07/25/2023 [facility] DATE CREATED AUTHOR AUTHOR'S ORGANIZ ATION 03/28/2024 [facility] DATE CREATED AUTHOR AUTHOR'S ORGANIZ ATION 08/28/2024 [facility] DATE CREATED AUTHOR AUTHOR'S ORGANIZ ATION 01/20/2025 [facility] DATE CREATED AUTHOR AUTHOR'S ORGANIZ ATION 01/20/2025 [facility] DATE CREATED AUTHOR AUTHOR'S ORGANIZ ATION 03/23/2025 [facility] DATE CREATED AUTHOR AUTHOR'S ORGANIZ ATION 04/11/2025 [facility] DATE CREATED AUTHOR AUTHOR'S ORGANIZ ATION 06/04/2025 [facility] DATE CREATED AUTHOR AUTHOR'S ORGANIZ ATION 06/09/2025 [facility] DATE CREATED AUTHOR AUTHOR'S ORGANIZ ATION 06/12/2025 [facility] DATE CREATED AUTHOR AUTHOR'S ORGANIZ ATION 06/15/2025 [facility] DATE CREATED AUTHOR AUTHOR'S ORGANIZ ATION 06/21/[address] [facility] DATE CREATED AUTHOR AUTHOR'S ORGANIZ ATION 06/30/2025 [facility] Goals (unrecognized section and content) Goals may [...] Status: Active Member Role Status Dates Tom Yuhas , DO Primary Care Provider Active Team Status: Inactive Member Role Status Dates Tom Paniagua , DO Primary Care Provider Active Sta rt: December 16, 2024 End: December 16Sadaf Mcmullen ProviderActiveStart: December 16, 2024 End: December 16, 2024 Team Status: Active Member Role Status Dates Tom Paniagua , DO Primary Care Provider Active Sta rt: September 26, 2023 Bobby Portillo , [facility] Provider, Other ProviderActiveStart: September 26, 2023 Lissa Melendez , RNOther ProviderActiveStart: September 26, 2023 Nancy Estrada , RNOther ProviderActiveStart: September 26, 2023 Norma Isabel , SAMUELOther ProviderActiveStart: September 26, 2023 Nithin Jackson , SAMUELOther ProviderActiveStart: September 26, 2023 Maricarmen Reddy , SAMUELOther ProviderActiveStart: September 26, 2023 Liza Laurent , SAMUELOther ProviderActiveStart: September 26, 2023 Natali Dasilva MDOther ProviderActiveStart: September 26, 2023 Martin Dior MDOther ProviderActiveStart: September 26, 2023 Marley Barrera , APRNOther ProviderActiveStart: September 26, 2023 Alfa Arrington DOOther ProviderActiveStart: September 26, 2023 Raffi Lopez MDOther ProviderActiveStart: September 26, 2023 Perry Tomas DOOther ProviderActiveStart: September 26, 2023 Tio Anderson MDOther ProviderActiveStart: September 26, 2023 Myrna Interiano MDOther ProviderActiveStart: September 26, 2023 Derick Perkins MDOther ProviderActiveStart: September 26, 2023 Nuha Martinez APRNOther ProviderActiveStart: September 26, 2023 Sherif Almaraz MDOther ProviderActiveStart: September 26, 2023 Amaury Castaneda MDOther ProviderActiveStart: September 26, 2023 Cierra Slaughter MDOther ProviderActiveStart: September 26, 2023 Meera Shields MDOther ProviderActiveStart: September 26, 2023 Nathan Evans , DOOther ProviderActiveStart: September 26, 2023 Aren Song MDOther ProviderActiveStart: September 26, 2023 Messi Fry MDOther ProviderActiveStart: September 26, 2023 Joyce Chapman , SENIOR OFFICE SUPPORT ASSISTANT [facility] ProviderActiveStart: September 26, 2023 Leonora Levine , APRNOther ProviderActiveStart: September 26, 2023 Lev Webster MDOther ProviderActiveStart: September 26, 2023 Rigo Rosado MDOther ProviderActiveStart: September 26, 2023 Abilio Valentin MDOther ProviderActiveStart: September 26, 2023 Alma Rosa Romero MDOther ProviderActiveStart: September 26, 2023 Ever Kurtz MDOther ProviderActiveStart: September 26, 2023 Jodee Mckeon , DOOther ProviderActiveStart: September 26, 2023 David Ely , DOOther ProviderActiveStart: September 26, 2023 Mc Duarte , DOOther ProviderActiveStart: September 26, 2023 Kellie Elena , APRNOther ProviderActiveStart: September 26, 2023 Hebert Bonilla , DOOther ProviderActiveStart: September 26, 2023 Thomas Harris MDOther ProviderActiveStart: September 26, 2023 Sully Gavin , APRNOther ProviderActiveStart: September 26, 2023 Yanet Steele , APRNOther ProviderActiveStart: September 26, 2023 Dunia Franz MDOther ProviderActiveStart: September 26, 2023 Carlos Alcala MDOther ProviderActiveStart: September 26, 2023 Shanice Guardado , APRNOther ProviderActiveStart: September 26, 2023 Cathy Sparks , DOOther ProviderActiveStart: September 26, 2023 Jada Bob RNOther ProviderActiveStart: September 26, 2023 Vincent Oliveira , MDAttending Provider, Other ProviderActiveStart: September 26, 2023 Team Status: Inactive Member Role Status Dates Tom Paniagua DO Primary Care Provider Active Lula Del Rosario , MDAttending ProviderActiveTeam MemberRelationshipSpecialty Start DateEnd Date No, Physician [facility] PCP - Tlqwimb47/17/17 Team Status: Active Member Role Status Dates Tom Paniagua DO Primary Care Provider Active Sta rt: October 06, 2023 Nathan Evans DOAdmit Provider, Attending Provider, Other ProviderActive Start: October 06, 2023 Erin Somers , SAMUELOther ProviderActiveStart: October 06, 2023 Kourtney Watts DOOther ProviderActiveStart: October 06, 2023 Oksana Lima MDOther ProviderActiveStart: October 06, 2023 Gita Arrington MDOther ProviderActiveStart: October 06, 2023 Bertha Tovar MDOther ProviderActiveStart: October 06, 2023 José Manuel Zheng MDOther ProviderActiveStart: October 06, 2023 Tesha Gavin , APRNOther ProviderActiveStart: October 06, 2023 Awilda Simental MDOther ProviderActiveStart: October 06, 2023 Mie Thomas MDOther ProviderActiveStart: October 06, 2023 Baltazar Mora MDOther ProviderActiveStart: October 06, 2023 Aissatou Thomas FOUNDRY PATTERNMAKER-BCOther ProviderActiveStart: October 06, 2023 Ramila Castillo MDOther ProviderActiveStart: October 06, 2023 Ivette Osorio MDOther ProviderActiveStart: October 06, 2023 Alek Damon , MDAttending ProviderActiveStart: October 06, 2023 Team MemberRelationshipSpecialtyStart DateEnd Date Veronica De Jesus, TECHNOLOGY APPLICATIONS TEACHER-PROFESSOR OF SOCIOLOGY [address] [place] [address] PCP - GeneralFamily Medicine10/17/23Team MemberRelationshipSpecialtyStart DateEnd Date Leeann Castillo, TECHNOLOGY APPLICATIONS TEACHER-PROFESSOR OF SOCIOLOGY PCP - GeneralInternal Medicine12/04/23Team MemberRelationshipSpecialtyStart Date End Date Tom Paniagua [address] [place] [address] PCP - General12/12/00 Tom Gottlieb MD [address] [place] [address] Primary Staff PhysicianCardiology11/19/18Team MemberRelationshipSpecialtyStart DateEnd Date Tom Paniagua [address] [place] [address] PCP - General12/12/00 Tom Gottlieb MD [address] [place] [address] Primary Staff PhysicianCardiology11/19/18Team MemberRelationshipSpecialtyStart DateEnd Date Leeann Castillo, TECHNOLOGY APPLICATIONS TEACHER-PROFESSOR OF SOCIOLOGY [address] [address] PCP - GeneralInternal Obskfvdr29/13/24 Gita Watts DO [facility] 2, [address] [address] Consulting UgdjzffrhYmercgcvky79/13/24Team MemberRelationshipSpecialtyStart Date End Date Tom Paniagua MD [address] [place] [address] PCP - GeneralInternal Medicine01/30/23Team MemberRelationshipSpecialtyStart Date End Date Tom Paniagua MD [address] [place] [address] PCP - GeneralInternal Medicine01/30/23am MemberRelationshipSpecialtyStart Date End Date Tom Paniagua MD [address] [place] [address] PCP - GeneralInternal Medicine01/30/23am MemberRelationshipSpecialtyStart Date End Date Tom Paniagua MD [address] [place] [address] PCP - GeneralInternal Medicine01/30/23am MemberRelationshipSpecialtyStart Date End Date Tom Paniagua MD [address] [place] [address] PCP - GeneralInternal Medicine01/30/23am MemberRelationshipSpecialtyStart Date End Date Tom Paniagua MD [address] [place] [address] PCP - GeneralInternal Medicine01/30/23am MemberRelationshipSpecialtyStart Date End Date Tom Paniagua MD [address] [place] [address] PCP - GeneralInternal Medicine01/30/23am MemberRelationshipSpecialtyStart Date End Date Tom Paniagua MD [address] [place] [address] PCP - GeneralInternal Medicine01/30/23Team MemberRelationshipSpecialtyStart Date End Date Tom Paniagua MD [address] [place] [address] PCP - GeneralInternal Medicine01/30/23Team MemberRelationshipSpecialtyStart Date End Date Tom Paniagua MD [address] [place] [address] PCP - GeneralInternal Medicine01/30/23am MemberRelationshipSpecialtyStart Date End Date Leeann Casitllo APRN-PROFESSOR OF SOCIOLOGY [address] [facility] [address] [place] [address] PCP - GeneralInternal Medicine11/15/23Team MemberRelationshipSpecialtyStart Date End Date Leeann Castillo APRN-PROFESSOR OF SOCIOLOGY [address] [facility] [address] [place] [address] PCP - GeneralInternal Medicine11/15/23Team MemberRelationshipSpecialtyStart Date End Date Tom Paniagua DO [address] [place] [address] PCP - GeneralInternal Medicine09/18/18Team MemberRelationshipSpecialtyStart Date End Date Leeann Castillo APRN-PROFESSOR OF SOCIOLOGY [address] [facility] [address] [place] [address] PCP - GeneralInternal Medicine11/15/23Team MemberRelationshipSpecialtyStart Date End Date Leeann Castillo APRN-PROFESSOR OF SOCIOLOGY [address] [facility] [address] [place] [address] PCP - GeneralInternal Medicine11/15/23Team MemberRelationshipSpecialtyStart Date End Date Leeann Castillo APRN-CNP [address] [facility] [address] [place] [address] PCP - GeneralInternal Medicine11/15/23Team MemberRelationshipSpecialtyStart Date End Date Leeann Castillo APRN-CNP [address] [facility] [address] [place] [address] PCP - GeneralInternal Medicine11/15/23Team MemberRelationshipSpecialtyStart Date End Date Leeann Castillo APRN-CNP [address] [facility] [address] [address] PCP - GeneralInternal Medicine11/15/23Team MemberRelationshipSpecialtyStart Date End Date Tom Paniagua DO [address] [place] [address] PCP - GeneralInternal Medicine09/18/18Team MemberRelationshipSpecialtyStart Date End Date Leeann Castillo APRN-CNP [address] [facility] [address] [address] PCP - GeneralInternal Medicine11/15/23Team MemberRelationshipSpecialtyStart Date End Date Leeann Castillo APRN-CNP [address] [facility] [address] [address] PCP - GeneralInternal Medicine11/15/23Team MemberRelationshipSpecialtyStart Date End Date Leeann Castillo APRN-CNP [address] [facility] [address] [place] [address] PCP - GeneralInternal Medicine11/15/23Team MemberRelationshipSpecialtyStart Date End Date Leeann Castillo APRN-PROFESSOR OF SOCIOLOGY [address] [facility] [address] [place] [address] PCP - GeneralInternal Medicine11/15/23Team MemberRelationshipSpecialtyStart Date End Date Leeann Castillo TECHNOLOGY APPLICATIONS TEACHER-PROFESSOR OF SOCIOLOGY [address] [facility] [address] [place] [address] PCP - GeneralInternal Medicine11/15/23Team MemberRelationshipSpecialtyStart Date End Date Leeann Castillo APRN-PROFESSOR OF SOCIOLOGY [address] [facility] [address] [place] [address] PCP - GeneralInternal Medicine11/15/23Team MemberRelationshipSpecialtyStart Date End Date Leeann Castillo APRN-PROFESSOR OF SOCIOLOGY [address] [facility] [address] [place] [address] PCP - GeneralInternal Medicine11/15/23Team MemberRelationshipSpecialtyStart Date End Date Leeann Castillo APRN-PROFESSOR OF SOCIOLOGY [address] [facility] [address] [place] [address] PCP - GeneralInternal Medicine11/15/23Team MemberRelationshipSpecialtyStart Date End Date Veronica De Jesus, TECHNOLOGY APPLICATIONS TEACHER-FOUNDRY PATTERNMAKER [address] [place] [address] PCP - GeneralInternal Medicine09/26/23Team MemberRelationshipSpecialtyStart Date End Date Leeann Castillo APRN-PROFESSOR OF SOCIOLOGY [address] [facility] [address] [place] [address] PCP - GeneralInternal Medicine11/15/23Team MemberRelationshipSpecialtyStart Date End Date Leeann Castillo APRN-PROFESSOR OF SOCIOLOGY [address] [facility] [address] [place] [address] PCP - GeneralInternal Medicine11/15/23Team MemberRelationshipSpecialtyStart Date End Date Leeann Castillo APRN-PROFESSOR OF SOCIOLOGY [address] [facility] [address] [place] [address] PCP - GeneralInternal Medicine11/15/23Team MemberRelationshipSpecialtyStart Date End Date Leeann Castillo APRN-PROFESSOR OF SOCIOLOGY [address] [facility] [address] [place] [address] PCP - GeneralInternal Medicine11/15/23Team MemberRelationshipSpecialtyStart Date End Date Veronica De Jesus, TECHNOLOGY APPLICATIONS TEACHER-FOUNDRY PATTERNMAKER [address] [place] [address] PCP - GeneralInternal Medicine09/26/23Team MemberRelationshipSpecialtyStart Date End Date Castillo Leeann TECHNOLOGY APPLICATIONS TEACHER-PROFESSOR OF SOCIOLOGY [address] [facility] [address] [place] [address] PCP - GeneralInternal Medicine11/15/23Team MemberRelationshipSpecialtyStart Date End Date Liza Sophia, TECHNOLOGY APPLICATIONS TEACHER-FOUNDRY PATTERNMAKER [address] [place] [address] PCP - GeneralInternal Medicine09/26/23Team MemberRelationshipSpecialtyStart Date End Date Leeann Castillo APRN-CNP [address] [facility] [address] [place] [address] PCP - GeneralInternal Medicine11/15/23Team MemberRelationshipSpecialtyStart Date End Date Leeann Castillo APRN-CNP [address] [facility] [address] [place] [address] PCP - GeneralInternal Medicine11/15/23Team MemberRelationshipSpecialtyStart Date End Date Leeann Castillo APRN-CNP [address] [facility] [address] [place] [address] PCP - GeneralInternal Medicine11/15/23Team MemberRelationshipSpecialtyStart Date End Date Leeann Castillo APRN-CNP [address] [facility] [address] [place] [address] PCP - GeneralInternal Medicine11/15/23Team MemberRelationshipSpecialtyStart Date End Date Leeann Castillo APRN-CNP [address] [facility] [address] [place] [address] PCP - GeneralInternal Medicine11/15/23Team MemberRelationshipSpecialtyStart Date End Date Leeann Castillo APRN-CNP [address] [facility] [address] [place] [address] PCP - GeneralInternal Medicine11/15/23Team MemberRelationshipSpecialtyStart Date End Date Leeann Castillo APRN-CNP [address] [facility] [address] [place] [address] PCP - GeneralInternal Medicine11/15/23Team MemberRelationshipSpecialtyStart Date End Date Leeann Castillo APRN-CNP [address] [facility] [address] [place] [address] PCP - GeneralInternal Medicine11/15/23Team MemberRelationshipSpecialtyStart Date End Date Leeann Castillo APRN-PROFESSOR OF SOCIOLOGY [address] [facility] [address] [place] [address] PCP - GeneralInternal Medicine11/15/23Team MemberRelationshipSpecialtyStart Date End Date Leeann Castillo APRN-CNP [address] [facility] [address] [place] [address] PCP - GeneralInternal Medicine11/15/23Team MemberRelationshipSpecialtyStart Date End Date Leeann Castillo APRN-CNP [address] [facility] [address] [place] [address] PCP - GeneralInternal Medicine11/15/23Team MemberRelationshipSpecialtyStart Date End Date Leeann Castillo APRN-PROFESSOR OF SOCIOLOGY [address] [facility] [address] [place] [address] PCP - GeneralInternal Medicine11/15/23Team MemberRelationshipSpecialtyStart Date End Date Tom Paniagua MD [address] [place] [address] PCP - GeneralInternal Medicine01/30/23am MemberRelationshipSpecialtyStart Date End Date Tom Paniagua MD [address] [place] [address] PCP - GeneralInternal Medicine01/30/23am MemberRelationshipSpecialtyStart Date End Date Leeann Castillo APRN-[facility] [address] [facility] [address] [place] [address] PCP - GeneralInternal Medicine11/15/23am MemberRelationshipSpecialtyStart Date End Date Tom Paniagua MD [address] [place] [address] PCP - GeneralInternal Medicine01/30/23am MemberRelationshipSpecialtyStart Date End Date Tom Paniagua MD [address] [place] [address] PCP - GeneralInternal Medicine01/30/23am MemberRelationshipSpecialtyStart Date End Date Leeann Castillo APRN-PROFESSOR OF SOCIOLOGY [address] [facility] [address] [place] [address] PCP - GeneralInternal Medicine11/15/23Team MemberRelationshipSpecialtyStart Date End Date Tom Paniagua MD [address] [place] [address] PCP - GeneralInternal Medicine01/30/23am MemberRelationshipSpecialtyStart Date End Date Tom Paniagua MD [address] [place] [address] PCP - GeneralInternal Medicine01/30/23Team MemberRelationshipSpecialtyStart Date End Date Tom Paniagua MD [address] [place] [address] PCP - GeneralInternal Medicine01/30/23Team MemberRelationshipSpecialtyStart Date End Date Tom Paniagua MD [address] [place] [address] PCP - GeneralInternal Medicine01/30/23Team MemberRelationshipSpecialtyStart Date End Date Leeann Castillo, TECHNOLOGY APPLICATIONS TEACHER-PROFESSOR OF SOCIOLOGY [address] [facility] [address] [place] [address] PCP - GeneralInternal Nbdzmlop16/13/24 Gita Watts DO [address] [facility] [address], [address] [address] Consulting WevlfelwuMqbnruhdis19/13/24Team MemberRelationshipSpecialtyStart Date End Date Leeann Castillo APRN-PROFESSOR OF SOCIOLOGY [address] [facility] [address] [place] [address] PCP - GeneralInternal Medicine11/15/23Team MemberRelationshipSpecialtyStart Date End Date Tom Paniagua MD [address] [place] [address] PCP - GeneralInternal Medicine01/30/23Team MemberRelationshipSpecialtyStart Date End Date Tom Paniagua MD [address] [place] [address] PCP - GeneralInternal Medicine01/30/23Team MemberRelationshipSpecialtyStart Date End Date Leeann Castillo APRN-PROFESSOR OF SOCIOLOGY [address] [facility] [address] [place] [address] PCP - GeneralInternal Medicine11/15/23Team MemberRelationshipSpecialtyStart Date End Date Tom Paniauga [address] [place] [address] PCP - General12/12/00 Tom Gottlieb MD [address] [place] [address] Primary Staff PhysicianCardiology11/19/18 MemberRelationshipSpecialtyStart DateEnd Date Tom Paniagua MD [address] [place] [address] PCP - GeneralInternal Medicine01/30/23Team MemberRelationshipSpecialtyStart Date End Date Tom Paniagua MD [address] [place] [address] PCP - GeneralInternal Medicine01/30/23Team MemberRelationshipSpecialtyStart Date End Date Leeann Castillo APRN-PROFESSOR OF SOCIOLOGY [address] [facility] [address] [place] [address] PCP - GeneralInternal Medicine11/15/23Team MemberRelationshipSpecialtyStart Date End Date Leeann Castillo APRN-PROFESSOR OF SOCIOLOGY [address] [facility] [address] [place] [address] PCP - GeneralInternal Medicine11/15/23 Reason for Visit (unrecogniz ed section and content) ReasonCommentsFollow-upLeg pain. Burning of the tongue.ReasonCommentsFollow-upEp review mri resultsReasonCommentsDM Foot CarePt is here today for diabetic foot careBS: 135 A1C: 6.6LV Dr. Betsy Mckenzie 01-14-2025SS: 11ReasonCommentsMemory Loss ReasonOnset MsrtTrhnzivoArreguy41/02/2025ReasonCommentsFollow-upep/review updated mri Brain & Cervical results. Pt has been having incontinence issues and neckpain.ReasonCommentsFoot Wound CheckPt is here today for wound FUV, he states the wound is looking good. BS: 110 A1C: 6.6ReasonCommentsFollow-upMAWE ReasonCommentsFollow-up8 month Follow up for Coronary Artery DiseaseSpecialty Diagnoses / ProceduresReferred By ContactReferred To ContactCardiology Diagnoses CAD, multiple vessel Procedures Follow Up In Cardiology Gita Watts, [address] [address], [place] [address] Phone: tel: fax: Gita Watts, [address], [address] [address] Phone: tel: fax: Referral IDStatusReasonStart DateExpiration DateVisits RequestedVisits [id number]/13/202411/13/[id number] Roland Khan is a 69 y.o. male. Established patient presents today for 2 week fuv for ulcer on left hallux. PCP: Leeann Castillo LV 01/07/25, A1C: 6.0, BS: 130. [id number] CommentsPre-op ExamPre op examReasonCommentsFollow-upEstablished patient presents today for 2 week fuv for ulcer on left hallux. PCP: Leeann Castillo LV 01/07, A1C: 6.0, BS: 213ReasonCommentsToe ProblemEstablished patient presents today for ulcer on LGT. Patient states he noticed it about a week ago,and also relates swelling, states it's been swollen for about 2 weeks. Patient rleates falling stubbing left 2nd toe, states he thinks it may be broken, states it was bruised. Has been using neosporin. Pt also requesting nail care. PCP: Dr. Morse 11/19/24, A1C: 7.2, BS: 105, SS: 11.5ReasonCommentsFollow-upF/u from ER for a fall. Said he thinks maybe it was from a medication he is taking. Has been havingepisodes of anxiousness so they upped his rispirdone and that when he started becoming off balance.Lowered it and his balance is better. He is now currently taking one risperidone in the AM and one PM.ReasonOnset DateComments New Kkhvcnh3301/08/2025ReasonCommentsFollow-upUrinary RetentionReasonCommentsDM Foot CarePCP: Dr. Morse 11/19/24, A1C: 7.2, BS: 196, SS: 11.5ReasonComments Follow-upBP was high this morning ( after having coffee) , having a lot of anxiety. Stiffness in armendariz and right shoulder pain.ReasonCommentsFollow-up Abdominal PainHe states the left sided pain has subsided.ConstipationHe states he has a bowel movement every other day or every 2 days. No straining or blood. He reports a urgency to have a BM.ReasonCommentsFollow-upAbdominal PainHe reports left sided abdominal pain. He states he has a terrible amount of gas. He has a bowel movement every 2 days. He does feel like he empties.ReasonComments New PatientAbdominal PainHe reports upper abdominal pain and on both sides. reports constipation with occasional miralaxReasonCommentsFollow-upNot able to have sx until next year, discuss [id number] - IndividualSpecialty Diagnoses / ProceduresReferred By ContactReferred To ContactEndocrinology, Diabetes & Metabolism Diagnoses Type 2 diabetes mellitus with diabetic peripheral angiopathy without gangrene, with long-term current use of insulin ([facility]) Alea Mckenzie MD [address] [facility], [address] [place] [address] [facility] Diabetes/Nutrition Ed [address] [place] [address] Referral IDStatusReasonStart DateExpiration DateVisits RequestedVisits [id number] Review Specialty Services Required /[id number]-vtJhw pt/establish care SOB/feet hurt ReasonCommentsNew PatientGall StonesReasonCommentsNew PatientSpecialtyDiagnoses / ProceduresReferred By ContactReferred To ContactUrology Diagnoses Numbness in both legs Bobbi Steen MD [address] [place] [address] [facility] [address] [place] [address] Referral IDStatusReasonStart DateExpiration DateVisits RequestedVisits [id number] Review Specialty Services Required /[id number]-heFhunvjs atorvastatin on own 03/05/2024 d/t possible SE, needs B12 refill, stomach ache issues/anxiety/OCDReasonOnset DateCommentsMed [id number]-op6 week post op s/p lumbar decompression with posterolateral fusionReasonCommentstransition careReasonOnset DateCommentsHospital Follow-up4ReasonCommentsFollow-up+PVRReason CommentsBack PainSpecialtyDiagnoses / ProceduresReferred By ContactReferred To ContactPain Medicine Diagnoses Spinal stenosis of lumbar region without neurogenic claudication Tom Paniagua, DO [address] [place] [address] Gita Sutton MD [address] [place] [address] Referral IDStatusReasonStart DateExpiration DateVisits RequestedVisits [id number] Review/[id number]cwpx Onset DateCommentsMed Bmpujb594ReasonCommentsright sideReasonComments Follow-upCompleted labs and testing and saw specialist. Would like the bottom of his feet looked atReasonCommentsFollow-upFace to Face for diabetic shoesReason Onset DateCommentsMed Hxywdr144ReasonCommentsMed RefillReasonComments Follow-upEdema in feet and legs, still achy in joints, neck stiffnessReason CommentsPainReasonCommentsDM Foot CareTom Khan is a 68 y.o. male. Established pt presents for diabetic nail care, patient relates 08/26/2024 he was at [facility] ER for swelling, cellulitis. Ultra sound was negative for Blood clots. PCP: Dr. Mini RUIZ 03/14/24, A1C: 7.0, BS: 200, SS: 11.5ReasonCommentsLeg SwellingBilateral lower leg swelling and redness for the last week. Was seen at urgent care and placed on augmentin. Reports saw mild improvement, but now getting worse.Reason CommentsDM Foot CareEstablished pt presents for diabetic nail care, and fuv for right foot ulceration. PCP: Dr. Mini RUIZ 03/14/24, A1C: 7.0, BS: 149, SS: 11.5 ReasonCommentsWound CheckTom Khan is a 68 y.o. male, Dr. Mc Chatman patient, Established pt presents today for wound check, right foot. Pt continues daily with gentamicin ointment, and stopped wearing surgical shoe 2 weeks ago. Relates right ankle stiffness started 2 weeks ago. NKI. PCP: Dr. Mini RUIZ 03/14/24, A1C: 7.0, BS: 284, SS: 11.5).ReasonCommentsFoot Wound CheckTom Halehl is a 68 y.o. male who presents for Wound Check Right foot. Patient relates he stopped wearing surgical shoe 2 weeks ago. Patient stopped dressing 1 week ago. PCP: Dr. Mini RUIZ 03/14/24, A1C: 7.0, BS: 130, SS: 11.5ReasonCommentsFollow-up6 m SpecialtyDiagnoses / ProceduresReferred By ContactReferred To ContactCardiology Diagnoses CAD, multiple vessel Procedures Follow Up In Cardiology iGta Watts, [address] [address], [place] [address] Phone: tel: fax: Gita Watts, [address] [address], [place] [address] Phone: tel: fax: Referral IDStatusReasonStart DateExpiration DateVisits RequestedVisits [id number]/[id number]/[id number] Gen RMPReason CommentsFollow-up3 monthsSpecialtyDiagnoses / ProceduresReferred By Contact Referred To ContactCardiology Diagnoses CAD, multiple vessel Procedures Follow Up In Cardiology Tesha Gavin, TECHNOLOGY APPLICATIONS TEACHER-[address] [address], [place] [address] Gita Watts, [address] [id number], [place] [address] Referral IDStatusReasonStart DateExpiration DateVisits RequestedVisits [id number] Follow-up [facility] [place] discharge 2/5ReasonCommentsIllnessUri x 2 weeks- concerned about cough/ sob Source Comments (unrecognize d section and content) In the event this informatio n is protected by the Federal Confidentiality of Alcohol and Drug Abuse Patient Records regulations: The Federal rules restrict any use of the information to criminally investigate or prosecute any alcohol or drug abuse patient.[facility] the event this information is protected by the Federal Confidentiality of Alcohol and Drug Abuse Patient Records regulations: The Federal rules restrict any use of the information to criminally investigate or prosecute any alcohol or drug abuse patient.[facility] Hospital[facility] the event this information is protected by the Federal Confidentiality of Alcohol and Drug Abuse Patient Records regulations: The Federal rules restrict any use of the information to criminally investigate or prosecute any alcohol or drug abuse patient.[facility] FOR RECORDS PERTAINING TO PATIENTS WHO [...] BE BASED ON THE PRIMARY CLINICAL RECORDS. [facility] [employer] [facility]. provides no warranty or guarantee of the accuracy or completeness of information in this document.
[2025-07-03 13:14] LABS: Alanine Aminotransferase 31 U/L (16-63); Albumin Globulin Ratio 1.1; Albumin Level 4.0 g/dL (3.4-5.0); Alkaline Phosphatase 46 U/L (46-116); Anion Gap 17.1; Aspartate Amino Transferase 17 U/L (15-37); Blood Urea Nitrogen 28.0 mg/dL (7.0-18.0); Calcium 9.3 mg/dL (8.5-10.1); Carbon Dioxide 21.9 mmol/L (21.0-32.0); Chloride 101 mmol/L (98-107); Estimated GFR (African America >60 (>=60 mL/min/1.73m^2); Estimated GFR (Non-African Ame >60 (>=60 mL/min/1.73m^2); Globulin 3.7 g/dL; Glucose 289 mg/dL (74-106); Potassium 4.0 mmol/L (3.5-5.1); Sodium 136 mmol/L (136-145); Total Protein 7.7 g/dL (6.4-8.2)
[2025-07-03 13:28] VITALS: BP 113/67; PULSE 77; O2SAT 95
--- NOTE | 2025-07-03 13:42 | ED.MALEGU1 ---
HPI - Male Genitourinary General Chief complaint: Urogenital-Male Stated complaint: ABDOMINAL PAIN, URINARY ISSUES, CONSTIPATION Time Seen by Provider: 07/03/25 11:52 Source: patient Mode of arrival: walk-in Limitations: no limitations History of Present Illness HPI Narrative: The patient presented to us with constipation for the last few days in addition to suprapubic abdominal pain and tenderness with urine retention since last night. The patient has not been able to urinate since yesterday evening No fever no chills no other concerns and the patient mentioned that he does take MiraLAX at home for constipation Related Data Home Medications ?Medication ?Instructions ?Recorded ?Confirmed carvedilol 12.5 mg tablet 12.5 mg PO BID 07/23/23 03/21/25 insulin glargine U-300 conc 300 42 unit subcut QPM 07/23/23 03/21/25 unit/mL (3 mL) subcutaneous pen (Toujeo Max U-300 SoloStar) lorazepam 0.5 mg tablet 0.5 mg PO QAM PRN anxiety 07/23/23 03/21/25 melatonin 3 mg tablet 6 mg PO QPM 07/23/23 03/21/25 semaglutide 2 mg/dose (8 mg/3 mL) 2 mg subcut QWEEK 07/23/23 03/21/25 subcutaneous pen injector (Ozempic) atorvastatin 80 mg tablet 40 mg PO DAILY 06/25/24 03/21/25 clopidogrel 75 mg tablet 75 mg PO DAILY 06/25/24 03/21/25 empagliflozin 25 mg tablet 25 mg PO DAILY 06/25/24 03/21/25 (Jardiance) losartan 25 mg tablet 25 mg PO DAILY 06/25/24 03/21/25 spironolactone 25 mg tablet 12.5 mg PO DAILY 06/25/24 03/21/25 aspirin 81 mg tablet,delayed 81 mg PO DAILY 03/21/25 03/21/25 release (Adult Low Dose Aspirin) buspirone 10 mg tablet 20 mg PO BID 03/21/25 03/21/25 cholecalciferol (vitamin D3) 125 125 mcg PO DAILY 03/21/25 03/21/25 mcg (5,000 unit) tablet (Vitamin D3) divalproex 125 mg capsule,delayed 250 mg PO Q12H 03/21/25 03/21/25 release sprinkle duloxetine 60 mg capsule,delayed 60 mg PO QDAY 03/21/25 03/21/25 release insulin lispro 100 unit/mL 1 sliding scale dose subcut 03/21/25 03/21/25 subcutaneous pen (Admelog SoloStar USEASDIRECTD U-100 Insulin lispro) mirtazapine 15 mg tablet 15 mg PO QPM 03/21/25 03/21/25 nitroglycerin 0.3 mg sublingual 0.3 mg sublingual Q5M PRN chest 03/21/25 03/21/25 tablet (Nitrostat) pain omega-3 fatty acids 1,250 mg PO DAILY 03/21/25 03/21/25 potassium chloride 10 mEq 10 meq PO QDAY PRN low potassium 03/21/25 03/21/25 tablet,extended release risperidone 0.5 mg tablet 0.5 mg PO BID 03/21/25 03/21/25 (Risperdal) Previous Rx's ?Medication ?Instructions ?Recorded tamsulosin 0.4 mg capsule (Flomax) 0.4 mg PO DAILY #30 caps 07/03/25 Allergies Allergy/AdvReac Type Severity Reaction Status Date / Time No Known Drug Allergies Allergy Verified 07/03/25 11:44 Review of Systems ROS Status of ROS 10 or more systems reviewed and unremarkable except as noted in history and below [facility] Social History Little interest or pleasure in doing things: not at all Feeling down, depressed, or hopeless: several days Exam Narrative Exam Narrative: Nurses notes and vital signs reviewed and patient is not hypoxic. General: Well-appearing and in distress due to pain Skin: Warm, dry, no pallor noted. No rash. Head: Normocephalic, atraumatic. Neck: Supple, non-tender. Eye: Pupils are equal, round and EOMI. No scleral icterus. Cardiovascular: Regular Rate and Rhythm without murmur, gallop or rub. Respiratory: No accessory muscle use or respiratory distress. Lungs are clear to auscultation, no wheezing, rales or rhonchi Chest Wall: no tenderness Musculoskeletal: normal ROM, no calf or popliteal tenderness, no lower extremity edema/swelling GI: Abdomen is soft, non-distended. Normal bowel sounds. No masses appreciated. Suprapubic tenderness noted as well as distention on arrival. Neurological: A&O x4. No cranial nerve dysfunction observed. No truncal ataxia. Moves all extremities. Sensation intact. Psychiatric: Cooperative and interactive. Normal mood and affect. Constitutional Vital Signs, click to edit/add: Last Vital Signs Temp 97.9 F 07/03/25 11:44 Pulse 77 07/03/25 13:28 Resp 16 07/03/25 13:28 BP 113/67 07/03/25 13:28 Pulse Ox 95 07/03/25 13:28 O2 Del Method Room Air 07/03/25 11:44 Course Vital Signs Vital signs: Vital Signs Temperature 97.9 F 07/03/25 11:44 Pulse Rate 79 07/03/25 11:44 Respiratory Rate 24 H 07/03/25 11:44 Blood Pressure 174/93 H 07/03/25 11:44 Pulse Oximetry 98 07/03/25 11:44 Oxygen Delivery Method Room Air 07/03/25 11:44 Temperature 97.9 F 07/03/25 11:44 Pulse Rate 77 07/03/25 13:28 Respiratory Rate 16 07/03/25 13:28 Blood Pressure 113/67 07/03/25 13:28 Pulse Oximetry 95 07/03/25 13:28 Oxygen Delivery Method Room Air 07/03/25 11:44 MDM - Male Genitourinary MDM Narrative Medical decision making narrative: The patient upon arrival did had a urine retention with 1700 cc of urine in the bladder he had a Bernardo catheter placed right away after which it drained fully the amount The patient urinalysis showed no UTI ,his blood workup shows some leukocytosis which could be reactive Chemistry was within normal and the CAT scan showed that the patient have constipation right now the patient will just continue using MiraLAX The patient will be discharged also with Flomax with referral to urology as outpatient apparently the patient had a similar presentation before I did describe to the patient that Flomax might lower his blood pressure so in case of dizziness he have to stop take it and follow-up with his primary care or come back to us Patient also instructed about the monitoring for fever or any pain to come back to the ER The patient to follow-up with the primary care within 2 to 3 days and to come back to the ER in case of any worsening of the current symptoms or any new symptoms or concerns Lab Data Labs: Lab Results 07/03/25 07/03/25 07/03/25 Range/Units 11:55 12:05 12:42 WBC 14.7 H (4.0-11.0) 10^3/uL RBC 4.79 (4.70-6.10) 10^6/uL Hgb 15.2 (14.0-18.0) g/dL Hct 44.2 (42.0-54.0) % MCV 92.3 (80.0-94.0) fL MCH 31.7 (25.9-34.0) pg MCHC 34.4 (29.9-35.2) g/dL RDW 15.1 H (11.0-15.0) % Plt Count 263 (150-450) 10^3/uL MPV 10.0 (9.5-13.5) fL Neut % (Auto) 81.6 H (43.0-75.0) % Lymph % (Auto) 9.4 L (20.5-60.0) % [place] % (Auto) 7.8 (1.7-12.0) % Eos % (Auto) 0.6 L (0.9-7.0) % Baso % (Auto) 0.3 (0.2-2.0) % Neut # (Auto) 12.0 H (1.4-6.5) 10^3/uL Lymph # (Auto) 1.4 (1.2-3.8) 10^3/uL [place] # (Auto) 1.2 H (0.3-0.8) 10^3/uL Eos # (Auto) 0.1 (0.0-0.7) 10^3/uL Baso # (Auto) 0.0 (0.0-0.1) 10^3/uL Abs Immat Gran (auto) 0.05 H (0.00-0.03) 10^3/uL Imm/Tot Granulo (auto) 0.3 (0.0-0.5) % Sodium 136 (136-145) mmol/L Potassium 4.0 (3.5-5.1) mmol/L Chloride 101 (98-107) mmol/L Carbon Dioxide 21.9 (21.0-32.0) mmol/L Anion Gap 17.1 BUN 28.0 H (7.0-18.0) mg/dL Creatinine 1.19 (0.70-1.30) mg/dL Est GFR ( Amer) >60 (>=60 mL/min/1.73m^2) Est GFR (Non-Af Amer) >60 (>=60 mL/min/1.73m^2) BUN/Creatinine Ratio 23.5 Glucose 289 H (74-106) mg/dL Calcium 9.3 (8.5-10.1) mg/dL Total Bilirubin 0.5 (0.2-1.0) mg/dL AST 17 (15-37) U/L ALT 31 (16-63) U/L Alkaline Phosphatase 46 (46-116) U/L Total Protein 7.7 (6.4-8.2) g/dL Albumin 4.0 (3.4-5.0) g/dL Globulin 3.7 g/dL Albumin/Globulin Ratio 1.1 Urine Color Lt. yellow (YELLOW) Urine Clarity Clear (CLEAR) Urine pH 6.0 (5.0-9.0) Ur Specific [place] <=1.005 A (1.005-1.025) Urine Protein Negative (NEG/TRACE) mg/dL Urine Glucose (UA) >=1000 A (NEGATIVE) mg/dL Urine Ketones Negative (NEGATIVE) mg/dL Urine Occult Blood Negative (NEGATIVE) Urine Nitrite Negative (NEGATIVE) Urine Bilirubin Negative (NEGATIVE) Urine Urobilinogen 0.2 (0.2-1.0) EU/dL Ur Leukocyte Esterase Negative (NEGATIVE) Discharge Plan Discharge Chief Complaint: Urogenital-Male Clinical Impression: Acute urinary retention, Constipation Patient Disposition: Home, Self-Care Time of Disposition Decision: 13:36 Condition: Good Prescriptions / Home Meds: New tamsulosin [Flomax] 0.4 mg capsule 0.4 mg PO DAILY Qty: 30 0RF No Action buspirone 10 mg tablet 20 mg PO BID duloxetine 60 mg capsule,delayed release(DR/EC) 60 mg PO QDAY insulin lispro [Admelog SoloStar U-100 Insulin] 100 unit/mL insulin pen 1 sliding scale dose subcut USEASDIRECTD aspirin [Adult Low Dose Aspirin] 81 mg tablet,delayed release (DR/EC) 81 mg PO DAILY mirtazapine 15 mg tablet 15 mg PO QPM divalproex 125 mg capsule, delayed rel sprinkle 250 mg PO Q12H risperidone [Risperdal] 0.5 mg tablet 0.5 mg PO BID nitroglycerin [Nitrostat] 0.3 mg tablet, sublingual 0.3 mg sublingual Q5M PRN (Reason: chest pain) Rx Instructions: do not exceed 3 doses per episode potassium chloride 10 mEq tablet extended release 10 meq PO QDAY PRN (Reason: low potassium) cholecalciferol (vitamin D3) [Vitamin D3] 125 mcg (5,000 unit) tablet 125 mcg PO DAILY omega-3 fatty acids Capsule 1,250 mg PO DAILY lorazepam 0.5 mg tablet 0.5 mg PO QAM PRN (Reason: anxiety) insulin glargine U-300 conc [Toujeo Max U-300 SoloStar] 300 unit/mL (3 mL) insulin pen 42 unit SUBCUT QPM Ozempic 2 mg/dose (8 mg/3 mL) pen injector 2 mg subcut QWEEK carvedilol 12.5 mg tablet 12.5 mg PO BID melatonin 3 mg tablet 6 mg PO QPM atorvastatin 80 mg tablet 40 mg PO DAILY clopidogrel 75 mg tablet 75 mg PO DAILY losartan 25 mg tablet 25 mg PO DAILY spironolactone 25 mg tablet 12.5 mg PO DAILY Jardiance 25 mg tablet 25 mg PO DAILY Print Language: Italian Instructions: Constipation (DC), Urinary Retention in Men (ED) Referrals: Leeann Marshall NP [Primary Care Provider] - 1 week Dominick Hogan MD [Physician, Urology] - 1 week Discharge Date/Time: 07/03/25 13:51
== END 2025-07-03 13:51 | disposition home or self-care (01) ==
PROVIDERS: Emergency Provider Emergency Medicine; PCP Nurse Practitioner
DX: R33.9 Retention of urine, unspecified (principal); K59.00 Constipation, unspecified
CPT/HCPCS: 36415; 51702; 74176; 80053; 81003; 85025; 99284